=== PATIENT | female | born 1935 | race Caucasian/White ===

== ENCOUNTER 2017-12-14 08:43 | Emergency (ER) | payer OTHER, MEDICARE ==
[2017-12-14 10:06] LABS: Absolute Lymphocytes (CBC) 1.6 K/uL (0.7-4.9); Absolute Monocytes 0.5 K/uL (0.1-1.3); Absolute Neutrophil 4.9 K/uL (1.8-8.0); Basophils % 0.3 % (0-1.3); Eosinophils % 2.3 % (0-4.4); Hematocrit 37.3 % (36.0-45.0); Lymphocytes % 22.2 % (15.3-44.8); MCH 28.3 pg (27.0-35.0); MCV 84.3 fL (80-100); MPV 8.2 fL (7.6-11.3); Monocytes % 6.8 % (3.3-12.3); RBC Red Blood Cell Count 4.43 M/uL (3.86-4.86)
[2017-12-14 10:08] LABS: Potassium 4.4 mEq/L (3.6-5.0)
[2017-12-14 10:09] LABS: Glomerular Filtration Rate > 60 mL/min (>60)
[2017-12-14 10:15] LABS: Albumin 4.2 g/dL (3.2-5.5); Bilirubin Direct 0.1 mg/dL (0-0.2); Bilirubin Total 0.5 mg/dL (0.3-1.2); Protein, Total 7.4 g/dL (6.0-8.3)
--- NOTE | 2017-12-14 10:50 | RAD REPORT ---
EXAM DESCRIPTION: CT - Stone Protocol - 12/14/2017 10:33 am CLINICAL HISTORY: Flank pain. Right lower quadrant pain. COMPARISON: None. TECHNIQUE: Axial images were obtained without oral or IV contrast. Lack of contrast limits solid org an and vascular assessment. The [id number] spans the entirety of the system partially obscuring uppermost abdomen and lung bases. Coronal reformatted images were obtained and reviewed. All CT scans are performed using dose optimization technique as appropriate and may include automated exposure control or mA/KV adjustment according to patient size. FINDINGS: The lower lung valenzuela are clear. Imaged portions of the liver and spleen show no suspicious findings on non-contrast imaging. The panc reas and adrenal glands are normal. No pathologic lymphadenopathy in the abdomen or pelvis. No urinary tract stones or obstructive uropathy. No bowel obstruction, free air, free fluid or abscess. The appendix is not identified as a discrete s tructure, however, no secondary findings of appendicitis are identified. Prominent sigmoid diverticul osis is noted without diverticulitis. Central canal stenosis is present at T12-L1. Moderate aortic atherosclerosis. IMPRESSION: No urinary tract stones or obstructive uropathy. Central canal stenosis at T12-L1. Prominent sigmoid diverticulosis without diverticulitis.
[2017-12-14] MEDS ORDERED: FENTANYL CITR 100 MCG/2 ML ONE (10:56)
[2017-12-14] MEDS ORDERED: ONDANSETRON 4 MG/2 ML VIAL ONE (10:56)
[2017-12-14] MEDS ORDERED: CEFTRIAXONE/SWI 1gm 1 GM/10 ML SYR ONE (10:57)
[2017-12-14] MEDS ORDERED: KETOROLAC 30 MG/ML INJ ONE (10:57)
--- NOTE | 2017-12-14 12:35 | ER ---
Nurse's Notes [facility] Name: Skylar Grossman Age: 82 yrs Sex: Female : 1935 Arrival Date: 12/14/2017 Time: 08:48 Bed 16 Private MD: Edwardo Angel V Diagnosis: Abdominal tenderness;Diverticular disease of intestine-diverticulosis Presentation: 12/14 09:06 Presenting complaint: Patient states: has had RLQ pain, radiating to right lower back iw for a few days, denies pain with urination or blood in urine, has hx of kidney stones X 30 years ago, denies n/v/d, denies fever, chills. Transition of care: patient was not received from another setting of care. Onset of symptoms was December 11, 2017. Care prior to arrival: None. 09:06 Method Of Arrival: Ambulatory iw 09:06 Acuity: FARIDA 3 iw Triage Assessment: 09:17 General: Appears in no apparent distress. uncomfortable, Behavior is calm, cooperative, hj appropriate for age. Pain: Complains of pain in right lower quadrant Pain radiates to right low back. EENT: No signs and/or symptoms were reported regarding the EENT system. Neuro: Level of Consciousness is awake, alert, obeys commands, Oriented to person, place, time, situation, Appropriate for age. Cardiovascular: Heart tones S1 S2 present Capillary refill < 3 seconds Patient's skin is warm and dry. Respiratory: Airway is patent Respiratory effort is even, unlabored, Respiratory pattern is regular, symmetrical. GI: No signs and/or symptoms were reported involving the gastrointestinal system. : No signs and/or symptoms were reported regarding the genitourinary system. Derm: No signs and/or symptoms reported regarding the dermatologic system. Musculoskeletal: No signs and/or symptoms reported regarding the musculoskeletal system. Historical: - Allergies: 09:08 Codeine (Upset stomach); iw - Home Meds: 09:19 amitriptyline 100 mg Oral tab 1 tab nightly [Active]; Bystolic 10 mg Oral tab 1 tab hj once daily [Active]; Flomax 0.4 mg Oral cp24 1 cap once daily [Active]; Humalog Sub-Q [Active]; Lantus 100 unit/mL Sub-Q soln 32 unit before breakfast [Active]; lisinopril 40 mg Oral tab 1 tab once daily [Active]; metformin 500 mg Oral tab 1 tab 2 times per day [Active]; Neurontin 300 mg Oral cap 1 cap 3 times per day [Active]; Plavix 75 mg Oral tab 1 tab once daily [Active]; Prilosec 20 mg Oral cpDR 1 cap once daily [Active]; Prozac 20 mg Oral cap 1 cap once daily [Active]; simvastatin 20 mg Oral tab 1 tab nightly [Active]; - PMHx: 09:08 CVA; Depression; Diabetes - IDDM; GERD; High Cholesterol; Hypertension; iw - PSHx: 09:08 Hysterectomy; iw - Immunization history:: Adult Immunizations up to date. - Social history:: Smoking status: Patient/guardian denies using tobacco, Patient/guardian denies using alcohol. - Family history:: not pertinent. Screenin:17 Abuse screen: Denies threats or abuse. Denies injuries from another. Nutritional hj screening: No deficits noted. Tuberculosis screening: No symptoms or risk factors identified. Fall Risk Fall in past 12 months (25 points). Assessment: 09:15 General: Appears in no apparent distress. Behavior is calm, cooperative. Neuro: Level iw of Consciousness is awake, alert, Oriented to person, place. Cardiovascular: Patient's skin is warm and dry. Respiratory: Respiratory effort is even, unlabored. GI: Reports lower abdominal pain, nausea. Derm: Skin is pink, warm \T\ dry. normal. Musculoskeletal: Range of motion: intact in all extremities. 10:11 Reassessment: Patient appears in no apparent distress at this time. Patient and/or wh family updated on plan of care and expected duration. Pain level reassessed. Patient is alert, oriented x 3, equal unlabored respirations, skin warm/dry/pink. 11:15 Reassessment: Patient appears in no apparent distress at this time. Patient and/or wh family updated on plan of care and expected duration. Pain level reassessed. Patient is alert, oriented x 3, equal unlabored respirations, skin warm/dry/pink. 12:14 Reassessment: Patient appears in no apparent distress at this time. Patient and/or wh family updated on plan of care and expected duration. Pain level reassessed. Patient is alert, oriented x 3, equal unlabored respirations, skin warm/dry/pink. 12:56 Reassessment: Patient appears in no apparent distress at this time. Patient and/or iw family updated on plan of care and expected duration. Pain level reassessed. Patient is alert, oriented x 3, equal unlabored respirations, skin warm/dry/pink. Patient denies pain at this time. Patient states feeling better. Patient states symptoms have improved. Vital Signs: 09:20 BP 168 / 83; Pulse 67; Resp 18; Temp 97.2(O); Pulse Ox 100% on R/A; Weight 81.65 kg; hj Height 5 ft. 5 in. (165.10 cm); Pain 4/10; 10:15 BP 204 / 88; Pulse 64; Resp 18; Pulse Ox 97% on R/A; wh 12:55 BP 184 / 89; Pulse 58; Resp 16; Pulse Ox 97% on R/A; Pain 0/10; iw 09:20 Body Mass Index 29.95 (81.65 kg, 165.10 cm) ED Course: 08:48 Patient arrived in ED. rg4 08:48 Edwardo Angel MD is Private Physician. rg4 09:00 Desmond Olsen MD is Attending Physician. denzel 09:02 Homer Hough, JOSE EDUARDO is Primary Nurse. 09:07 Triage completed. iw 09:08 Arm band placed on. iw 09:19 Patient has correct armband on for positive identification. Placed in gown. Bed in low hj position. Call light in reach. Side rails up X 1. Adult w/ patient. 09:45 Initial lab(s) drawn, by me, sent to lab. Inserted saline lock: 22 gauge in left hj antecubital area, using aseptic technique. Blood collected. 10:33 CT completed. Patient tolerated procedure well. Patient moved to CT via wheelchair. sj Patient moved back from CT. 10:34 CT Stone Protocol In Process Unspecified. EDMS 12:28 Straight cath inserted, using sterile technique, 16 Fr. Returned clear yellow urine. iw Patient tolerated well. 12:34 Edwardo Angel MD is Referral Physician. denzel 12:53 No provider procedures requiring assistance completed. IV discontinued, intact, iw bleeding controlled, No redness/swelling at site. Pressure dressing applied. Administered Medications: 11:13 Drug: TORadol 30 mg Route: IVP; Site: left antecubital; 11:40 Follow up: Response: No adverse reaction; Pain is decreased iw 11:13 Drug: Zofran 4 mg Route: IVP; Site: left antecubital; 12:57 Follow up: Response: No adverse reaction iw 11:13 Drug: fentaNYL (PF) 25 mcg Route: IVP; Site: left antecubital; 12:57 Follow up: Response: No adverse reaction iw 11:13 Drug: Rocephin - (cefTRIAXone) 1 grams Route: IVPB; Infused Over: 30 mins; Site: left antecubital; 11:15 Follow up: IV Status: Completed infusion iw Outcome: 12:34 Discharge ordered by MD. mahoney 12:53 Discharged to home ambulatory, with family. iw 12:53 Condition: good 12:53 Discharge instructions given to patient, Instructed on discharge instructions, follow up and referral plans. Demonstrated understanding of instructions, follow-up care, Prescriptions given X 4. 12:57 Patient left the ED. iw Signatures: Dispatcher [employer] EDDesmond Ramírez MD MD cha Jones, Susan sj Williams, Irene, RN RN Homer Hough RN RN hj Garcia, Rubi rg4 Alphonso Ching
--- NOTE | 2017-12-14 12:35 | EDPHYS ---
Physician Documentation [facility] Name: Skylar Grossman Age: 82 yrs Sex: Female : 1935 Arrival Date: 12/14/2017 Time: 08:48 Bed 16 Private MD: Edwardo Angel V ED Physician Desmond Olsen HPI: 12/14 10:18 This 82 yrs old Female presents to ER via Ambulatory with complaints of Flank denzel Pain. 10:18 This 82 yrs old Female presents to ER via Ambulatory with complaints of Flank denzel Pain. 10:18 The patient complains of pain in the right mid back and right low back. The pain denzel radiates to the right mid back and right low back. Onset: The symptoms/episode began/occurred 2 day(s) ago. Modifying factors: The symptoms are alleviated by nothing. Associated signs and symptoms: The patient has no apparent associated signs or symptoms. Severity of pain: At its worst the pain was mild moderate. The patient has not experienced similar symptoms in the past. Historical: - Allergies: 09:08 Codeine (Upset stomach); iw - Home Meds: 09:19 amitriptyline 100 mg Oral tab 1 tab nightly [Active]; Bystolic 10 mg Oral tab 1 tab hj once daily [Active]; Flomax 0.4 mg Oral cp24 1 cap once daily [Active]; Humalog Sub-Q [Active]; Lantus 100 unit/mL Sub-Q soln 32 unit before breakfast [Active]; lisinopril 40 mg Oral tab 1 tab once daily [Active]; metformin 500 mg Oral tab 1 tab 2 times per day [Active]; Neurontin 300 mg Oral cap 1 cap 3 times per day [Active]; Plavix 75 mg Oral tab 1 tab once daily [Active]; Prilosec 20 mg Oral cpDR 1 cap once daily [Active]; Prozac 20 mg Oral cap 1 cap once daily [Active]; simvastatin 20 mg Oral tab 1 tab nightly [Active]; - PMHx: 09:08 CVA; Depression; Diabetes - IDDM; GERD; High Cholesterol; Hypertension; iw - PSHx: 09:08 Hysterectomy; iw - Immunization history:: Adult Immunizations up to date. - Social history:: Smoking status: Patient/guardian denies using tobacco, Patient/guardian denies using alcohol. - Family history:: not pertinent. ROS: 10:18 Constitutional: Negative for fever, chills, and weight loss, Eyes: Negative for injury, denzel pain, redness, and discharge, ENT: Negative for injury, pain, and discharge, Neck: Negative for injury, pain, and swelling, Cardiovascular: Negative for chest pain, palpitations, and edema, Respiratory: Negative for shortness of breath, cough, wheezing, and pleuritic chest pain, : Negative for injury, bleeding, discharge, and swelling, MS/Extremity: Negative for injury and deformity, Skin: Negative for injury, rash, and discoloration, Neuro: Negative for headache, weakness, numbness, tingling, and seizure, Psych: Negative for depression, anxiety, suicide ideation, homicidal ideation, and hallucinations, Allergy/Immunology: Negative for hives, rash, and allergies, Endocrine: Negative for neck swelling, polydipsia, polyuria, polyphagia, and marked weight changes, Hematologic/Lymphatic: Negative for swollen nodes, abnormal bleeding, and unusual bruising. 10:18 Abdomen/GI: Positive for abdominal pain, of the right upper quadrant and right lower quadrant. Exam: 10:18 Constitutional: This is a well developed, well nourished patient who is awake, alert, denzel and in no acute distress. Head/Face: Normocephalic, atraumatic. Eyes: Pupils equal round and reactive to light, extra-ocular motions intact. Lids and lashes normal. Conjunctiva and sclera are non-icteric and not injected. Cornea within normal limits. Periorbital areas with no swelling, redness, or edema. ENT: Nares patent. No nasal discharge, no septal abnormalities noted. Tympanic membranes are normal and external auditory canals are clear. Oropharynx with no redness, swelling, or masses, exudates, or evidence of obstruction, uvula midline. Mucous membranes moist. Neck: Trachea midline, no thyromegaly or masses palpated, and no cervical lymphadenopathy. Supple, full range of motion without nuchal rigidity, or vertebral point tenderness. No Meningismus. Chest/axilla: Normal chest wall appearance and motion. Nontender with no deformity. No lesions are appreciated. Cardiovascular: Regular rate and rhythm with a normal S1 and S2. No gallops, murmurs, or rubs. Normal PMI, no JVD. No pulse deficits. Respiratory: Lungs have equal breath sounds bilaterally, clear to auscultation and percussion. No rales, rhonchi or wheezes noted. No increased work of breathing, no retractions or nasal flaring. Back: No spinal tenderness. No costovertebral tenderness. Full range of motion. Female : Normal external genitalia. Skin: Warm, dry with normal turgor. Normal color with no rashes, no lesions, and no evidence of cellulitis. MS/ Extremity: Pulses equal, no cyanosis. Neurovascular intact. Full, normal range of motion. Neuro: Awake and alert, GCS 15, oriented to person, place, time, and situation. Cranial nerves II-XII grossly intact. Motor strength 5/5 in all extremities. Sensory grossly intact. Cerebellar exam normal. Normal gait. Psych: Awake, alert, with orientation to person, place and time. Behavior, mood, and affect are within normal limits. 10:18 Abdomen/GI: Inspection: abdomen appears normal, Bowel sounds: normal, Palpation: mild abdominal tenderness, moderate abdominal tenderness, in the posterior aspect of right lateral abdomen, anterior aspect of right lateral abdomen, right upper quadrant and right lower quadrant. Vital Signs: 09:20 BP 168 / 83; Pulse 67; Resp 18; Temp 97.2(O); Pulse Ox 100% on R/A; Weight 81.65 kg; Height 5 ft. 5 in. (165.10 cm); Pain 4/10; 10:15 BP 204 / 88; Pulse 64; Resp 18; Pulse Ox 97% on R/A; wh 12:55 BP 184 / 89; Pulse 58; Resp 16; Pulse Ox 97% on R/A; Pain 0/10; iw 09:20 Body Mass Index 29.95 (81.65 kg, 165.10 cm) MDM: 09:00 [facility] 10:18 Data reviewed: vital signs, nurses notes, lab test result(s), radiologic studies, CT denzel scan, plain films. 12/14 09:38 Order name: Amylase, Serum 12/14 09:38 Order name: Basic Metabolic Panel 12/14 09:38 Order name: CBC with Diff; Complete Time: 11:42 12/14 09:38 Order name: Creatinine for Radiology; Complete Time: 10:16 12/14 09:38 Order name: Hepatic Function; Complete Time: 10:16 12/14 09:38 Order name: Lipase; Complete Time: 10:16 hj 12/14 09:38 Order name: Urine Microscopic Only 12/14 09:38 Order name: Amylase Level; Complete Time: 10:16 EDIA 12/14 09:38 Order name: Basic Metabolic Panel; Complete Time: 10:16 EDMS 12/14 10:18 Order name: CT Stone Protocol; Complete Time: 11:42 [facility] 12/14 12:43 Order name: Urine Dipstick--Ancillary (enter results) 12/14 09:38 Order name: IV Saline Lock; Complete Time: 09:38 12/14 09:38 Order name: Labs collected and sent; Complete Time: 09:38 12/14 09:38 Order name: Urine Dipstick-Ancillary (obtain specimen); Complete Time: 12:28 Administered Medications: 11:13 Drug: TORadol 30 mg Route: IVP; Site: left antecubital; 11:40 Follow up: Response: No adverse reaction; Pain is decreased iw 11:13 Drug: Zofran 4 mg Route: IVP; Site: left antecubital; 12:57 Follow up: Response: No adverse reaction iw 11:13 Drug: fentaNYL (PF) 25 mcg Route: IVP; Site: left antecubital; 12:57 Follow up: Response: No adverse reaction iw 11:13 Drug: Rocephin - (cefTRIAXone) 1 grams Route: IVPB; Infused Over: 30 mins; Site: left antecubital; 11:15 Follow up: IV Status: Completed infusion iw Disposition: 12/14/17 12:34 Discharged to Home. Impression: Abdominal tenderness, Diverticular disease of intestine - diverticulosis. - Condition is Stable. - Discharge Instructions: Abdominal Pain, Adult, Abdominal Pain, Adult, [id number]. - Prescriptions for Bentyl 20 mg Oral Tablet - take 1 tablet by ORAL route every 6 hours As needed; 20 tablet. Zofran 4 mg Oral Tablet - take 1 tablet by ORAL route every 12 hours As needed; 20 tablet. Tramadol 50 mg Oral Tablet - take 1 tablet by ORAL route every 8 hours as needed; 24 tablet. Cipro 250 mg Oral Tablet - take 1 tablet by ORAL route every 12 hours; 14 tablet. - Medication Reconciliation Form, Thank You Letter, Antibiotic Education, Prescription Opioid Use form. - Follow up: Edwardo Angel; When: 2 - 3 days; Reason: Recheck today's complaints, Continuance of care, Re-evaluation by your physician. - Problem is new. - Symptoms have improved. Signatures: Dispatcher [employer] EDDesmond Ramírez MD MD cha Williams, Irene RN Homer Johnson RN Alphonso Sy
[2017-12-14 12:59] LABS: Urine Bacteria 20-50 /HPF (<20); Urine Culture Reflex Order REFLEXED; Urine RBC <5 /HPF (NONE SEEN)
[2017-12-14 13:01] VITALS: TEMP 97.2
[2017-12-14 13:02] VITALS: O2SAT 97
[2017-12-14 13:04] VITALS: BP 184/89
[2017-12-14 15:07] LABS: Urine Blood NEGATIVE (NEG); Urine Glucose NEGATIVE (NEG); Urine Protein NEGATIVE (NEG)
== END 2017-12-14 12:57 | disposition home or self-care (01) ==
LOC: ER 08:43
DX: K57.30 Diverticulosis of large intestine without perforation or abscess without bleeding (principal); I10 Essential (primary) hypertension; E11.9 Type 2 diabetes mellitus without complications; E78.00 Pure hypercholesterolemia, unspecified; F32.9 Major depressive disorder, single episode, unspecified; Z86.73 Personal history of transient ischemic attack (TIA), and cerebral infarction without residual deficits; Z79.01 Long term (current) use of anticoagulants; Z79.4 Long term (current) use of insulin; Z88.5 Allergy status to narcotic agent
CPT/HCPCS: 36415; 51702; 74176; 76377; 80048; 80076; 82150; 83690; 85025; 87086; 87088; 96374; 96375; 99284; J0696; J2405; J3010; 81003; 81015

== ENCOUNTER 2017-12-26 05:33 | Observation (INO) | payer OTHER, MEDICARE ==
[2017-12-26] MEDS ORDERED: NA CHLORIDE 0.9% 1,000 ML ONE (05:58)
[2017-12-26] MEDS ORDERED: CEFTRIAXONE/SWI 1gm 1 GM/10 ML SYR ONE (05:58)
[2017-12-26] MEDS ORDERED: NA CHLORIDE 0.9% 500 ML ONE (05:58)
[2017-12-26 06:26] LABS: Absolute Lymphocytes (CBC) 2.1 K/uL (0.7-4.9); Absolute Monocytes 0.8 K/uL (0.1-1.3); Absolute Neutrophil 9.4 K/uL (1.8-8.0); Basophils % 0.4 % (0-1.3); Hematocrit 34.9 % (36.0-45.0); Lymphocytes % 17.2 % (15.3-44.8); MCH 27.3 pg (27.0-35.0); MPV 8.8 fL (7.6-11.3); Monocytes % 6.5 % (3.3-12.3)
[2017-12-26 06:30] LABS: Protime INR 1.07
[2017-12-26 06:39] LABS: Potassium 4.4 mEq/L (3.6-5.0)
[2017-12-26 06:45] LABS: Albumin 3.8 g/dL (3.2-5.5); Bilirubin Direct 0.1 mg/dL (0-0.2); Bilirubin Total 0.5 mg/dL (0.3-1.2); Magnesium 1.8 mg/dL (1.8-2.5)
[2017-12-26 06:48] LABS: CKMB Creatine Kinase MB 3.6 ng/ml (0.3-4.0)
--- NOTE | 2017-12-26 07:22 | ER ---
Nurse's Notes [facility] Name: Skylar Grossman Age: 82 yrs Sex: Female : 1935 Arrival Date: 12/26/2017 Time: 05:36 Bed 20 Private MD: Edwardo Angel V Diagnosis: Weakness;Fever, unspecified;Other chest pain;Urinary tract infection, site not specified Presentation: 12/26 05:46 Presenting complaint: Patient states: I FELT REALLY WEAK AND BEEN HURTING HERE bp (GESTURING TO CHEST). Transition of care: patient was not received from another setting of care. Onset of symptoms was December 26, 2017 at 04:30. Care prior to arrival: None. 05:46 Method Of Arrival: Ambulatory bp 05:46 Acuity: FARIDA 2 bp Triage Assessment: 05:51 General: Appears in no apparent distress. comfortable, obese, Behavior is calm, bp cooperative, appropriate for age. Pain: Complains of pain in xyphoid area and mid-sternal area Pain currently is 10 out of 10 on a pain scale. EENT: No deficits noted. Neuro: Level of Consciousness is awake, alert, obeys commands, Oriented to person, place, time, situation, Appropriate for age Therapeutic Massage Technician are equal bilaterally Moves all extremities. Weakness Speech is normal, Facial symmetry appears normal. Cardiovascular: Rhythm is sinus rhythm. Respiratory: Airway is patent Respiratory effort is even, unlabored, Respiratory pattern is regular, symmetrical. GI: No signs and/or symptoms were reported involving the gastrointestinal system. : No signs and/or symptoms were reported regarding the genitourinary system. Derm: No deficits noted. Musculoskeletal: Circulation, motion, and sensation intact. Range of motion: intact in all extremities. Historical: - Allergies: 05:50 Codeine (Upset stomach); bp - Home Meds: 05:50 amitriptyline 100 mg Oral tab 1 tab nightly [Active]; Bystolic 10 mg Oral tab 1 tab bp once daily [Active]; Flomax 0.4 mg Oral cp24 1 cap once daily [Active]; Humalog Sub-Q [Active]; Lantus 100 unit/mL Sub-Q soln 32 unit before breakfast [Active]; lisinopril 40 mg Oral tab 1 tab once daily [Active]; metformin 500 mg Oral tab 1 tab 2 times per day [Active]; Neurontin 300 mg Oral cap 1 cap 3 times per day [Active]; Plavix 75 mg Oral tab 1 tab once daily [Active]; Prilosec 20 mg Oral cpDR 1 cap once daily [Active]; Prozac 20 mg Oral cap 1 cap once daily [Active]; simvastatin 20 mg Oral tab 1 tab nightly [Active]; - PMHx: 05:50 CVA; Depression; Diabetes - IDDM; GERD; High Cholesterol; Hypertension; bp - Immunization history:: Adult Immunizations up to date. - Social history:: Smoking status: Patient/guardian denies using tobacco. Screenin:53 Abuse screen: Denies threats or abuse. Denies injuries from another. Nutritional bp screening: No deficits noted. Tuberculosis screening: No symptoms or risk factors identified. Fall Risk Fall in past 12 months (25 points). Secondary diagnosis (15 points) CVA, No IV (0 pts). Ambulatory Aid- Crutches/Cane/Walker (15 pts). Gait- Weak (10 pts.). Mental Status- Oriented to own ability (0 pts). Total [place] Fall Scale indicates High Risk Score (45 or more points). Fall prevention measures have been instituted. Side Rails Up X 2 Placed Close to Nursing Station Frequent Obs/Assessments Occuring Family Present and informed to notify staff if the need to leave the bedside As available patient and family educated on Fall Prevention Program and Strategies. Assessment: 05:50 General: SEE TRIAGE NOTE. 82YO WF P/W GEN WEAKNESS, SUBJECTIVE FEVER AND SUBSTERNAL bp CHEST PAIN SINCE 0430. VS STABLE ON MONITOR, PT AFEBRILE. -[place] SCALE FOR STROKE, PT AO4. 06:23 Reassessment: PT TO CT WITH RESIDENTIAL TEAM LEADER. bp 06:45 Reassessment: PT RETURNED FROM CT. UOP PENDING. PT VS STABLE ON MONITOR. bp 07:54 Reassessment: Patient appears in no apparent distress at this time. Patient and/or ph family updated on plan of care and expected duration. Pain level reassessed. Patient is alert, oriented x 3, equal unlabored respirations, skin warm/dry/pink. Pt resting quietly, awaiting room assignment, daughter at bedside. Vital Signs: 05:51 BP 128 / 52; Pulse 68; Resp 16; Temp 97.6; Pulse Ox 93% ; Weight 80.74 kg; bp 06:45 BP 143 / 61; Pulse 66; Resp 18; Pulse Ox 100% ; bp 07:55 BP 149 / 94; Pulse 69; Resp 18; Pulse Ox 95% on R/A; ph Vitals: 07:55 Cardiac Rhythm Assessment. Cardiac Rhythm Assessment Regular. ph ED Course: 05:36 Patient arrived in ED. es 05:37 Edwardo Angel MD is Private Physician. es 05:39 Desmond Olsen MD is Attending Physician. denzel 05:46 Faustino Garcia, JOSE EDUARDO is Primary Nurse. bp 05:47 Triage completed. bp 05:51 Arm band placed on. bp 05:53 Patient has correct armband on for positive identification. Placed in gown. Bed in low bp position. Call light in reach. Side rails up X2. Adult w/ patient. 06:00 Missed attempt(s): 20 gauge in left antecubital area. Bleeding controlled, band aid bb applied, catheter tip intact. 06:02 XRAY Chest (1 view) Sent. bp 06:05 Inserted saline lock: 20 gauge in right forearm, using aseptic technique. Blood bb collected. 06:12 X-ray completed. Portable x-ray completed in exam room. Patient tolerated procedure kw well. 06:14 XRAY Chest (1 view) In Process Unspecified. EDMS 06:23 CT Abd/Pelvis - Without Cont: no iv and no oral Sent. bp 06:32 CT Abd/Pelvis - Without Cont: no iv and no oral In Process Unspecified. EDMS 07:20 Edwardo Angel MD is Hospitalizing Provider. denzel 07:56 No provider procedures requiring assistance completed. Patient admitted, IV remains in ph place. Administered Medications: 06:20 Drug: NS 0.9% 500 ml Route: IV; Rate: bolus; Site: right forearm; bp 06:20 Drug: NS 0.9% 1000 ml Route: IV; Rate: 125 ml/hr; Site: right forearm; bp 06:20 Drug: Rocephin - (cefTRIAXone) 1 grams Route: IVPB; Infused Over: 30 mins; Site: right bp forearm; 07:54 Drug: Aspirin 81 mg Route: PO; ph Outcome: 07:22 Decision to Hospitalize by Provider. denzel 09:39 Patient left the ED. ph Signatures: Dispatcher [employer] EDMS Desmond Olsen MD MD cha Salyer, Cindy es Wall, Naomi, JOSE EDUARDO RN bb Christina Elkins Patricia, RN RN ph Faustino Garcia RN RN bp
--- NOTE | 2017-12-26 07:22 | EDPHYS ---
Physician Documentation [facility] Name: Skylar Grossman Age: 82 yrs Sex: Female : 1935 Arrival Date: 12/26/2017 Time: 05:36 Bed 20 Private MD: Edwardo Angel V ED Physician Desmond Olsen HPI: 12/26 05:54 This 82 yrs old Female presents to ER via Ambulatory with complaints of denzel Weakness, Fever. 05:54 The patient presents to the emergency department with weakness of the entire body, denzel generalized weakness. Historical: - Allergies: 05:50 Codeine (Upset stomach); bp - Home Meds: 05:50 amitriptyline 100 mg Oral tab 1 tab nightly [Active]; Bystolic 10 mg Oral tab 1 tab bp once daily [Active]; Flomax 0.4 mg Oral cp24 1 cap once daily [Active]; Humalog Sub-Q [Active]; Lantus 100 unit/mL Sub-Q soln 32 unit before breakfast [Active]; lisinopril 40 mg Oral tab 1 tab once daily [Active]; metformin 500 mg Oral tab 1 tab 2 times per day [Active]; Neurontin 300 mg Oral cap 1 cap 3 times per day [Active]; Plavix 75 mg Oral tab 1 tab once daily [Active]; Prilosec 20 mg Oral cpDR 1 cap once daily [Active]; Prozac 20 mg Oral cap 1 cap once daily [Active]; simvastatin 20 mg Oral tab 1 tab nightly [Active]; - PMHx: 05:50 CVA; Depression; Diabetes - IDDM; GERD; High Cholesterol; Hypertension; bp - Immunization history:: Adult Immunizations up to date. - Social history:: Smoking status: Patient/guardian denies using tobacco. ROS: 05:55 Constitutional: Negative for fever, chills, and weight loss, Eyes: Negative for injury, denzel pain, redness, and discharge, ENT: Negative for injury, pain, and discharge, Neck: Negative for injury, pain, and swelling, Cardiovascular: Negative for chest pain, palpitations, and edema, Respiratory: Negative for shortness of breath, cough, wheezing, and pleuritic chest pain, Back: Negative for injury and pain, : Negative for injury, bleeding, discharge, and swelling, MS/Extremity: Negative for injury and deformity, Skin: Negative for injury, rash, and discoloration, Neuro: Negative for headache, weakness, numbness, tingling, and seizure, Psych: Negative for depression, anxiety, suicide ideation, homicidal ideation, and hallucinations, Allergy/Immunology: Negative for hives, rash, and allergies, Endocrine: Negative for neck swelling, polydipsia, polyuria, polyphagia, and marked weight changes, Hematologic/Lymphatic: Negative for swollen nodes, abnormal bleeding, and unusual bruising. 05:55 Abdomen/GI: Positive for abdominal pain, of the left upper quadrant and left lower quadrant. Exam: 05:55 Constitutional: This is a well developed, well nourished patient who is awake, alert, denzel and in no acute distress. Head/Face: Normocephalic, atraumatic. Eyes: Pupils equal round and reactive to light, extra-ocular motions intact. Lids and lashes normal. Conjunctiva and sclera are non-icteric and not injected. Cornea within normal limits. Periorbital areas with no swelling, redness, or edema. ENT: Nares patent. No nasal discharge, no septal abnormalities noted. Tympanic membranes are normal and external auditory canals are clear. Oropharynx with no redness, swelling, or masses, exudates, or evidence of obstruction, uvula midline. Mucous membranes moist. Neck: Trachea midline, no thyromegaly or masses palpated, and no cervical lymphadenopathy. Supple, full range of motion without nuchal rigidity, or vertebral point tenderness. No Meningismus. Chest/axilla: Normal chest wall appearance and motion. Nontender with no deformity. No lesions are appreciated. Cardiovascular: Regular rate and rhythm with a normal S1 and S2. No gallops, murmurs, or rubs. Normal PMI, no JVD. No pulse deficits. Respiratory: Lungs have equal breath sounds bilaterally, clear to auscultation and percussion. No rales, rhonchi or wheezes noted. No increased work of breathing, no retractions or nasal flaring. Back: No spinal tenderness. No costovertebral tenderness. Full range of motion. Female : Normal external genitalia. Skin: Warm, dry with normal turgor. Normal color with no rashes, no lesions, and no evidence of cellulitis. MS/ Extremity: Pulses equal, no cyanosis. Neurovascular intact. Full, normal range of motion. Neuro: Awake and alert, GCS 15, oriented to person, place, time, and situation. Cranial nerves II-XII grossly intact. Motor strength 5/5 in all extremities. Sensory grossly intact. Cerebellar exam normal. Normal gait. Psych: Awake, alert, with orientation to person, place and time. Behavior, mood, and affect are within normal limits. 05:55 Abdomen/GI: Inspection: abdomen appears normal, Bowel sounds: normal, Palpation: mild abdominal tenderness, in the left upper quadrant and left lower quadrant. Vital Signs: 05:51 BP 128 / 52; Pulse 68; Resp 16; Temp 97.6; Pulse Ox 93% ; Weight 80.74 kg; bp 06:45 BP 143 / 61; Pulse 66; Resp 18; Pulse Ox 100% ; bp 07:55 BP 149 / 94; Pulse 69; Resp 18; Pulse Ox 95% on R/A; ph MDM: 05:39 Patient medically screened. [facility] 05:56 Data reviewed: vital signs, nurses notes, lab test result(s), EKG, radiologic studies, [facility] CT scan, plain films. 12/26 05:46 Order name: Basic Metabolic Panel; Complete Time: 07:12 [facility] 12/26 05:46 Order name: BNP [facility] 12/26 05:46 Order name: CBC with Diff; Complete Time: 07:12 [facility] 12/26 05:46 Order name: Ckmb; Complete Time: 07:12 [facility] 12/26 05:46 Order name: CPK; Complete Time: 07:12 [facility] 12/26 05:46 Order name: LFT's; Complete Time: 07:12 [facility] 12/26 05:46 Order name: Magnesium; Complete Time: 07:12 [facility] 12/26 05:46 Order name: PT-INR; Complete Time: 07:12 [facility] 12/26 05:46 Order name: Ptt, Activated; Complete Time: 07:12 [facility] 12/26 05:46 Order name: Troponin (emerg Dept Use Only); Complete Time: 07:12 [facility] 12/26 05:46 Order name: Urine Culture [facility] 12/26 05:46 Order name: Lipase; Complete Time: 07:12 [facility] 12/26 05:46 Order name: Blood Culture Adult (2) [facility] 12/26 05:46 Order name: XRAY Chest (1 view) [facility] 12/26 05:46 Order name: EKG; Complete Time: 05:47 [facility] 12/26 05:46 Order name: Flu; Complete Time: 07:12 [facility] 12/26 05:54 Order name: CT Abd/Pelvis - Without Cont: no iv and no oral [facility] 12/26 07:31 Order name: Carb Control (ADA) [address] EDKY 12/26 07:31 Order name: CONS Physician Consult [facility] 12/26 07:31 Order name: EKG Electrocardiogram [facility] 12/26 07:31 Order name: EKG Electrocardiogram [facility] 12/26 07:31 Order name: Troponin I [facility] 12/26 07:31 Order name: Troponin I [facility] 12/26 07:42 Order name: Urine Dipstick--Ancillary (enter results) em 12/26 07:43 Order name: Urine Dipstick-Ancillary [facility] 12/26 05:46 Order name: Cardiac monitoring; Complete Time: 06:01 [facility] 12/26 05:46 Order name: EKG - Nurse/Tech; Complete Time: 06:02 [facility] 12/26 05:46 Order name: IV Saline Lock; Complete Time: 06:01 [facility] 12/26 05:46 Order name: Labs collected and sent; Complete Time: 06:02 [facility] 12/26 05:46 Order name: O2 Per Protocol; Complete Time: 06:01 [facility] 12/26 05:46 Order name: O2 Sat Monitoring; Complete Time: 06:01 [facility] 12/26 05:46 Order name: Urine Dipstick-Ancillary (obtain specimen); Complete Time: 07:44 [facility] 12/26 07:31 Order name: EKG Electrocardiogram [facility] 12/26 07:31 Order name: EKG Electrocardiogram [facility] Administered Medications: 06:20 Drug: NS 0.9% 500 ml Route: IV; Rate: bolus; Site: right forearm; bp 06:20 Drug: NS 0.9% 1000 ml Route: IV; Rate: 125 ml/hr; Site: right forearm; bp 06:20 Drug: Rocephin - (cefTRIAXone) 1 grams Route: IVPB; Infused Over: 30 mins; Site: right bp forearm; 07:54 Drug: Aspirin 81 mg Route: PO; ph Disposition: 12/26/17 07:22 Hospitalization ordered by Edwardo Angel for Observation. Preliminary diagnosis are Weakness, Fever, unspecified, Other chest pain, Urinary tract infection, site not specified. - Bed requested for Telemetry/MedSurg (observation). - Status is Observation. ph - Condition is Stable. - Problem is new. - Symptoms have improved. UTI on Admission? Yes Signatures: Dispatcher [employer] EDNicole Calloway, RN RN Desmond Joyner MD MD cha Hall, Patricia, RN RN Faustino Garcia, RN RN bp Corrections: (The following items were deleted from the chart) 06:53 05:47 Procalcitonin+C.LAB.BRZ ordered. EDKY EDKY
[2017-12-26] MEDS ORDERED: ACETAMINOPHEN 500 MG TAB PO PRN (07:26)
[2017-12-26] MEDS ORDERED: ONDANSETRON 4 MG/2 ML VIAL IV PRN (07:26)
[2017-12-26] MEDS ORDERED: GLUCAGON 1 MG/VIAL IM PRN (07:28)
[2017-12-26] MEDS ORDERED: D50W 25 GM/50 ML SYRINGE IV PRN (07:28)
[2017-12-26] MEDS: INSULIN -REGULAR HUMAN 50 UNIT/0.5 ML ML SQ SCH ×4 (07:30→20:42)
[2017-12-26] MEDS ORDERED: ASPIRIN 81 MG CHEWABLE TABLET ONE (07:42)
--- NOTE | 2017-12-26 08:02 | RAD REPORT ---
EXAM DESCRIPTION: RAD - Chest Single View - 12/26/2017 6:13 am CLINICAL HISTORY: Chest pain COMPARISON: July 2017, August 2015 TECHNIQUE: AP portable chest image was obtained 0606 hours . FINDINGS: Lung volumes are low. Shallow inspiration and rotation accentuate the mediastinum. Fullnes s of the mediastinum is not clearly changed back to 2014. This is most likely summation of tortuous v asculature rather than mass or lymphadenopathy. No peripheral mass or consolidation. Acute failure or volume overload are not suspected. Heart size i s normal for shallow inspiration. No vascular engorgement. No measurable pleural effusion and no pneu mothorax. No gross bony abnormality seen. Aortic arch is prominent but not clearly different. Trachea is midline. IMPRESSION: No acute cardiopulmonary process. As detailed above, chest is not substantially different from prior imaging.
--- NOTE | 2017-12-26 08:07 | RAD REPORT ---
EXAM DESCRIPTION: CT - Abdomen Pelvis Wo Contrast - 12/26/2017 6:32 am CLINICAL HISTORY: Weakness, epigastric pain, abdominal pain, prior appendectomy and cholecystectomy, prior hysterectomy A preliminary written report was provided at the time of the study, and the report was reviewed prio r to final dictation. COMPARISON: CT study December 14 TECHNIQUE: Axial [address] imaging of the abdomen and pelvis was performed without IV contrast. No IV contrast was given because of allergy, abnormal renal function, patient refusal or physician re quest. Oral contrast was given. All CT scans are performed using dose optimization technique as appropriate and may include automated exposure control or mA/KV adjustment according to patient size. FINDINGS: No suspicious findings in the lung bases. No pericardial thickening or effusion. The liver, spleen and pancreas show no suspicious findings on non-contrast imaging. Gallbladder is ab sent. No biliary tree dilatation. No hydronephrosis or suspicious renal mass. No significant adrenal finding. Isodense renal masses an d pyelonephritis cannot be excluded in the absence of IV contrast. The urinary bladder is without sig nificant finding. Uterus is absent. Ovaries are atrophic. No adnexal mass. Numerous phleboliths are s een along the pelvic floor. No acute stomach or small bowel finding. There is a large stool volume filling but not dilating the c olon. Sigmoid is tortuous. No acute colon process. No free air, free fluid or inflammatory stranding. No hernia, mass or bulky lymphadenopathy. Prominent bony degenerative changes are present. No pathologic bone process. IMPRESSION: Noncontrast CT abdomen and pelvis imaging shows no acute finding. Large volume of stool fills but does not dilate the colon. No acute colon process. No significant changes from the December 14 study. Full assessment is limited is the absence of IV contrast.
--- NOTE | 2017-12-26 08:26 | EKG ---
Test Date: 2017-12-26 Test Time: 05:52:49 Real Estate Accountant: KENNY MEASUREMENT RESULTS: Intervals: Rate: 55 CT: 186 QRSD: 132 QT: 482 QTc: 461 [place]: P: 60 CT: 186 QRS: 55 T: 41 INTERPRETIVE STATEMENTS: Sinus bradycardia with sinus arrhythmia Nonspecific intraventricular block Abnormal ECG Compared to ECG 08/01/2017 23:35:44 Sinus rhythm no longer present First degree AV block no longer present Right bundle-branch block no longer present Electronically Signed On 12-26-17 08:25:25 CDT by Chintan Lopez
[2017-12-26] MEDS ORDERED: NEBIVOLOL HCL 5 MG TAB PO SCH (09:00)
[2017-12-26] MEDS ORDERED: CLOPIDOGREL 75 MG TABLET PO SCH (09:00)
[2017-12-26] MEDS ORDERED: LISINOPRIL 10 MG TAB PO SCH (09:00)
[2017-12-26 10:11] VITALS: BMI 30.5
[2017-12-26 10:19] LABS: Urine Blood TRACE (NEG); Urine Glucose NEGATIVE (NEG); Urine Protein NEGATIVE (NEG); Urine Specific Gravity 1.015 (1.005-1.030)
[2017-12-26] MEDS: TRAMADOL HCL 50 MG TAB PO PRN ×2 (11:01→17:46)
[2017-12-26] MEDS: ASPIRIN EC 81 MG TAB PO SCH (11:01)
[2017-12-26] MEDS: NA CHLORIDE 0.9% 1,000 ML IV SCH ×3 (11:02→20:42)
[2017-12-26] MEDS: FAMOTIDINE 20 MG/2 ML VIAL IV SCH ×2 (11:16→20:42)
[2017-12-26] MEDS: cloNIDine HCl 0.1 MG TAB PO PRN (15:58)
--- NOTE | 2017-12-26 16:43 | RAD REPORT ---
EXAM DESCRIPTION: MRI - Brain Wo Cont - 12/26/2017 4:24 pm CLINICAL HISTORY: Confusion, weakness, headache COMPARISON: MRI August 2015, CT head July 2017 TECHNIQUE: Sagittal T1-weighted images were obtained along with axial PD, heavily T2-weighted and T2 -FLAIR images. Axial DWI and ADC mapping sequences were also obtained along with coronal heavily T2-w eighted images. FINDINGS: No intracranial hemorrhage, mass or acute infarction. There is no edema or shift of midlin e structures. No extra-axial fluid collections. Joseph-matter/white matter junction is preserved. Signa l voids are seen as a normal finding in the major intracranial vessels. Volume loss changes are prese nt not substantially different from 2015. Patient has minimal cerebral white matter chronic ischemic change. There is focal signal abnormality in the left side of the delroy. This is similar to the prior study. 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 No globe or orbital content abnormality. No sella or supra sella finding. Mastoid air cells and paranasal sinuses are clear. There is prominent soft tissue thickening along the transverse ligament posterior to the dens. There is bone loss change to the dense and probable thinning of the anterior arch C1. This area is only par tially visualized on an MR brain examination. Pattern is not substantially [facility]. Degenerative change, particularly rheumatoid arthritis, can generate this collection o f findings. IMPRESSION: No acute infarction changes are present. No hemorrhage, mass or acute intracranial findi ng. Old ischemic injury is seen in the left side of the delroy similar to 2015. Atrophy is mild and chronic ischemic changes minimal. Prominent degenerative change at the dens C1 level suspected to be from rheumatoid arthritis. This re gion is only partially imaged on this study.
--- NOTE | 2017-12-26 21:25 | P.HP ---
Certification for Inpatient Patient admitted to: Observation With expected LOS: <2 Midnights Practitioner: I am a practitioner with admitting privileges, knowledge of patient current condition, hospital course, and medical plan of care. Services: Services provided to patient in accordance with Admission requirements found in Title 42 Section 412.3 of the Code of Federal Regulations Patient History Date of Service: 12/26/17 Reason for admission: WEAKNESS, COULD NOT TALK THIS AM, MAY HAVE CHEST PAIN History of Present Illness: MS. CARLISLE WOKE UP WITH CONFUSION AND COULD NOT TALK WELL. SISTER SAID SHE HAD CHEST PAIN ALSO BUT SHE DOES NOT REMEMBER. SHE IS COMFORTABLE NOW WHEN I SAW HER AT LUNCH TIME. Allergies codeine [Codeine] Adverse Reaction (Intermediate, Verified 02/04/17 02:36) HEADACHE/NAUSEATED meperidine HCl [From Demerol] Adverse Reaction (Intermediate, Verified 02/04/17 02:36) DIZZINESS/NAUSEA Home Medications: Gabapentin [Neurontin*] 300 mg PO TID 05/21/15 Amitriptyline [Elavil*] 100 mg PO BEDTIME #60 tab 08/31/15 Lisinopril [Zestril] 40 mg PO DAILY #30 tablet 08/31/15 Metformin HCl [Glucophage*] 500 mg PO BIDWM #60 tab 08/31/15 Omeprazole [Prilosec] 20 mg PO DAILY #30 capsule. 08/31/15 Clopidogrel Bisulfate [Plavix*] 75 mg PO DAILY 02/04/17 Fluoxetine HCl [Prozac*] 20 mg PO DAILY 02/04/17 Simvastatin 1 tab PO BEDTIME 02/04/17 Tamsulosin [Flomax*] 0.4 mg PO DAILY 08/02/17 Insulin Glargine,Hum.rec.anlog [Lantus] 20 units SQ BEDTIME 12/26/17 Insulin Lispro [Humalog*] See Protocol SQ TIDWM 12/26/17 Nebivolol HCl [Bystolic] 10 mg PO DAILY 12/26/17 Pantoprazole Sodium [Pantoprazole Sodium] 40 mg PO BEDTIME 12/26/17 - Past Medical/Surgical History Has patient received pneumonia vaccine in the past: Yes Diabetic: Yes -: GERD -: Anxiety -: Hypertension -: CVA -: Depression -: IDDM -: Hyperlipidemia -: Cholecystectomy -: Hysterectomy -: Appendectomy - Family History Mother -: Hypertension Father -: Hypertension - Social History Smoking Status: Never smoker Alcohol use: No CD- Drugs: No Caffeine use: No Place of Residence: Home Review of Systems 10-point ROS is otherwise unremarkable Neurological: As per HPI Physical Examination - Vital Signs Temperature: 97.8 F Blood Pressure: 177/78 Pulse: 62 Respirations: 14 Pulse Ox (%): 94 - Physical Exam General: Alert, Mild distress, Obese HEENT: Atraumatic, PERRLA, Mucous membr. moist/pink, EOMI, Sclerae nonicteric Neck: Supple, 2+ carotid pulse no bruit, No LAD, Without JVD or thyroid abnormality Respiratory: Clear to auscultation bilaterally, Normal air movement Cardiovascular: Regular rate/rhythm, Normal S1 S2 Gastrointestinal: Normal bowel sounds, No tenderness Musculoskeletal: No tenderness Integumentary: No rashes Neurological: Normal speech, Normal strength at 5/5 x4 extr, Normal tone, Other (WALKS WITH WALKER, NO CHANGES) Lymphatics: No axilla or inguinal lymphadenopathy - Studies Laboratory Data (last 24 hrs) 12/26/17 06:05: PT 12.6 H, INR 1.07, APTT 62.4 H 12/26/17 06:05: WBC 12.5 H D, Hgb 11.2 L, Hct 34.9 L, Plt Count 254 12/26/17 06:05: B-Natriuretic Peptide 357 H 12/26/17 06:05: Sodium 134 L, Potassium 4.4, BUN 15, Creatinine 0.88, Glucose 139 H, Magnesium 1.8, Total Bilirubin 0.5, AST 17, ALT 13, Alkaline Phosphatase 77, Lipase 13 L Microbiology Data (last 24 hrs): 12/26/17 06:11 Nasopharnyx Influenza Type A Antigen Screen - Final 12/26/17 06:11 Nasopharnyx Influenza Type B Antigen Screen - Final Assessment and Plan - Problems (Diagnosis) (1) Chest pain Current Visit: Yes Status: Acute Plan: SHE IS A DIABETIC WITH OBESITY AND H/O CVA. RISK OF CAD IS THERE. SHE CAN HAVE OUT PATIENT CHEMICAL ST TEST. 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 AMBULATE AND DC IN AM. - Advance Directives Does patient have a Living Will: No Does patient have a Durable POA for Healthcare: No
[2017-12-26] MEDS: INSULIN DETEMIR 100 UNIT/1 ML INSULIN SQ SCH (21:45)
[2017-12-27] MEDS: cloNIDine HCl 0.1 MG TAB PO PRN ×2 (02:10→21:16)
[2017-12-27] MEDS: NA CHLORIDE 0.9% 1,000 ML IV SCH ×4 (04:00→17:00)
[2017-12-27] MEDS: PANTOPRAZOLE 40MG TABLET PO SCH ×2 (06:30→07:10)
[2017-12-27] MEDS: INSULIN LISPRO 100 UNIT/1 ML SQ SCH ×3 (08:00→16:57)
[2017-12-27] MEDS: LISINOPRIL 20 MG TAB PO SCH (08:26)
[2017-12-27] MEDS: ASPIRIN EC 81 MG TAB PO SCH (08:26)
[2017-12-27] MEDS: GABAPENTIN 100 MG CAP PO SCH ×3 (08:26→21:15)
[2017-12-27] MEDS: NEBIVOLOL HCL 5 MG TAB PO SCH (08:27)
[2017-12-27] MEDS: METFORMIN HCL 500 MG TAB PO SCH ×2 (08:27→17:00)
[2017-12-27] MEDS: FLUOXETINE 20 MG CAP PO SCH (08:27)
[2017-12-27] MEDS: CLOPIDOGREL 75 MG TABLET PO SCH (08:27)
[2017-12-27] MEDS: FAMOTIDINE 20 MG/2 ML VIAL IV SCH ×2 (08:28→21:16)
[2017-12-27] MEDS: TAMSULOSIN 0.4 MG SR CAP PO SCH (08:28)
[2017-12-27 08:34] LABS: Potassium 4.2 mEq/L (3.6-5.0)
[2017-12-27] MEDS ORDERED: FLUOXETINE 10 MG CAP PO SCH (09:00)
[2017-12-27 09:05] LABS: Absolute Lymphocytes (CBC) 1.4 K/uL (0.7-4.9); Absolute Monocytes 0.5 K/uL (0.1-1.3); Absolute Neutrophil 5.2 K/uL (1.8-8.0); Basophils % 0.3 % (0-1.3); Eosinophils % 2.2 % (0-4.4); Hematocrit 34.1 % (36.0-45.0); MCH 28.7 pg (27.0-35.0); MPV 8.4 fL (7.6-11.3); Monocytes % 7.5 % (3.3-12.3); RBC Red Blood Cell Count 4.06 M/uL (3.86-4.86)
--- NOTE | 2017-12-27 09:49 | EKG ---
Test Date: 2017-12-27 Test Time: 09:14:00 [employer] Artist: DOROTHY MEASUREMENT RESULTS: Intervals: Rate: 66 NV: 198 QRSD: 132 QT: 480 QTc: 503 [place]: P: 54 NV: 198 QRS: 39 T: 11 INTERPRETIVE STATEMENTS: Normal sinus rhythm Right bundle branch block Abnormal ECG Compared to ECG 12/26/2017 05:52:49 Right bundle-branch block now present Sinus bradycardia no longer present Sinus arrhythmia no longer present Electronically Signed On 12-27-17 09:48:48 CDT by Anselmo Caballero
--- NOTE | 2017-12-27 13:43 | CON ---
CARDIOLOGY CONSULTATION Reason For Consult: Chest pain. History Of Present Illness: Ms. García gives a very different history from what was given by the diane everett's sister. Ms. García said she was feeling fine. When she tried to get out of bed, she fell , was able to get up right away. There was no loss of consciousness. No chest pain. The sister ins ists there was not chest pain, although I have an interviewed the sister myself. The patient has a r emote history of a pontine stroke. She was treated medically. No vascular intervention was done. S yared being in the hospital she has had EKGs that show nonspecific intraventricular conduction block. It is probably a just a slightly unusual form of right bundle, which is similar to her old EKGs. Anastasia metcalf has had a brain MRI that indicates no acute infarction, no hemorrhage. It is very similar to the M [place] that they did in 2014 when she had her pontine stroke. The patient has never had myocardial infar ction or any vascular interventions. Denies having chest pain. Medications: Outpatient medications have been gabapentin, metformin, amitriptyline, lisinopril, omep razole, Plavix, simvastatin, fluoxetine, tamsulosin, nebivolol, Protonix, insulin. She has underlyin g gastroesophageal reflux disease, hypertension, diabetes, and dyslipidemia. Physical Examination: Vital Signs: 5 feet 4 inches, 178 pounds. General: Alert, oriented, pleasant, not in distress. No carotid bruit. Lungs: Clear. Cardiac exam: Within normal limits. Abdomen: Soft. Extremities: Palpable but 1+ distal pulses. No edema. No ulcers or discoloration. Impression: This is not a case of unstable angina. I am in agreement with Dr. Angel what he wrote i n his note. The patient could be discharged and if she has any chest pain, we could do an outpatient testing, but at this point it seems like her cardiac condition is fairly stable. KELLY Voice ID: [id number] Report ID: [id number]
--- NOTE | 2017-12-27 20:19 | P.PN ---
Subjective Date of Service: 12/27/17 Chief Complaint: WEAKNESS, COULD NOT TALK THIS AM, MAY HAVE CHEST PAIN Subjective: New changes (THIS AM WOKE UP WITH HALLUCINATIONS, PARANOID ABOUT EVERYONE TRYING TO HARM HER.) Review of Systems 10-point ROS is otherwise unremarkable General: Weakness, Malaise Neurological: Confusion Physical Examination - Vital Signs Temperature: 97.9 F Blood Pressure: 177/101 Pulse: 67 Respirations: 18 Pulse Ox (%): 95 - Physical Exam General: Alert, Mild distress, Obese HEENT: Atraumatic, PERRLA, EOMI Neck: Supple, JVD not distended Respiratory: Clear to auscultation bilaterally, Normal air movement Cardiovascular: Regular rate/rhythm, Normal S1 S2 Gastrointestinal: Normal bowel sounds, No tenderness Musculoskeletal: No tenderness Integumentary: No rashes Neurological: Normal speech, Other (ALTERED MENTAL STATUS. HALLUCINATES, BUT DID RECOGNIZE ME.) Lymphatics: No axilla or inguinal lymphadenopathy - Studies Medications List Reviewed: Yes Assessment And Plan - Current Problems (Diagnosis) (1) Chest pain Onset Date: 12/27/17 Current Visit: Yes Status: Acute Plan: SHE IS A DIABETIC WITH OBESITY AND H/O CVA. RISK OF CAD IS THERE. SHE CAN HAVE OUT PATIENT CHEMICAL ST TEST. 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 AMBULATE AND DC IN AM. HALLUCIANATES ORDER EEG ORDER THIAMINE IV. CHECK B12, TSH. CONSULT NEUROLOGY. MOST LIKELY HOSPITAL PSYCHOSIS IN ELDERLY WITH STROKE.
[2017-12-27] MEDS ORDERED: ATORVASTATIN 10 MG TAB PO SCH (21:00)
[2017-12-27] MEDS ORDERED: NA CHLORIDE 0.9% 1,000 ML IV SCH (21:00)
[2017-12-27] MEDS ORDERED: AMITRIPTYLINE 50 MG TAB PO SCH ×2 (21:00)
[2017-12-27] MEDS: INSULIN DETEMIR 100 UNIT/1 ML INSULIN SQ SCH (21:21)
--- NOTE | 2017-12-28 00:05 | CON ---
Reason For Consultation: Consultation called because of altered mental status. History Of Present Illness: Ms. García is an 82-year-old patient [facility]. 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 However, since stroke, she has used a rollator for ambulation and at t imes may intermittently lose balance because of the rollator "getting away from me." She comes into the hospital on the , which is yesterday, with reports of feeling weak and hurting in the chest. Since her admission, there has been no episodes of sudden change in orientation such as confusion, l oss of ability to move arms or legs, or any seizure-like activity. The consultation was called gabbi woodall of possible confusion related to perhaps a new stroke. 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 No acute ischemic or hemo rrhagic changes identified. She did have chronically central spinal stenosis at C5-C6 that was partl y visualized as well on imaging this hospitalization. Rest of her workup was negative for possible i nfection, the urine analysis was unremarkable, and she had the EEG which showed a mildly slow backgro und indicating a mild diffuse disturbance in cerebral activity. Past Medical History: Significant for depression, insulin-dependent diabetes mellitus, dyslipidemia, hypertension, prior stroke. Allergies: CODEINE. Home Medications: Amitriptyline 100 mg at night, Bystolic 10 mg daily, Flomax 0.4 mg daily, Humalog subcutaneously 32 units before breakfast, lisinopril 40 mg daily, metformin 500 mg twice daily, gabap entin 300 mg 3 times daily, Plavix 75 mg daily, Prilosec 20 mg daily, Prozac 20 mg daily, simvastatin 20 mg nightly. She reports taking also aspirin 81 mg daily. Social History: No alcohol, tobacco, or IV drug use. Past Surgical History: Appendectomy, hysterectomy, cholecystectomy. Family History: Hypertension in mother and father. Review of Systems: She denies any recent fevers, chills, nausea, vomiting, myalgias, arthralgias, headache, weight bashir e, or rash. No psychiatric complaints. No gastrointestinal or genitourinary issues. Physical Examination: Vital Signs: Blood pressure 177/101, pulse 67, respiratory rate 18, temperature 97.8, oxygen saturat ion 95% on room air, weight 178 pounds, height 5 feet 4 inches, BMI of 30.6. General: Ms. García is resting comfortably in bed. She is in no acute distress. HEENT: She is normocephalic and atraumatic. Sclerae anicteric. Oropharynx is moist and pink. Neck: Supple. Chest: Clear. Heart: Regular. Extremities: Show no edema or cyanosis. Neurologic: She is alert and oriented to person, place, time, and situation. She knows the city, . She was off on the day and actual date by 2 days, which actually is the day her event occurr ed to bring her to the hospital, and she followed all commands appropriately. Cranial nerve exam rev ealed no deficits on through 12. Motor exam in the upper and lower extremities despite her chronic stroke showed no focal deficits in the arms and legs. Her right side has recovered very well from t he weakness due to the left pontine stroke. Sensory exam intact to light touch and temperature in th e arms and legs with a stocking-glove pattern. Reflexes slightly increased over the right upper and lower extremity versus the left side. Coordination intact, but slow in the right upper and lower ext remity versus the left side. The patient does ambulate with a walker and a rollator. She uses a whe elchair for long distances. Laboratory Studies: White blood cell count 7.4, hemoglobin 11.7, hematocrit 34.1. Differential for white count is normal. Coagulation panel shows INR 1.07. Chemistries unremarkable except slightly d ecreased glomerular filtration rate of 76. Liver function studies are unremarkable. Glucose is 139. Urinalysis shows trace esterase, trace of blood. Urine cultures show less than 10,000 colony-formi ng units. She did have aerobic and anaerobic blood cultures x2 that are negative. Nasopharynx for i nfluenza A and B are unremarkable. Her electrocardiogram shows sinus bradycardia, sinus arrhythmia, and nonspecific intraventricular block. Chest x-ray shows no acute cardiopulmonary processes. Abdom en and pelvis CT scan shows large volume of stool filled, but does not dilate the colon. No acute pr ocess. No significant change from December 14 and that study was on December 26. Assessment: Ms. 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 She reportedly has some issues with memory. At this point, the patient is cleared. There is no evidence of any acute encephalopathy. However, she is at risk for vascular dementia. S he does report no significant family history of dementia, but of multiple strokes in mother. At this point, her workup again reveals no acute stroke and neurologic examination again shows no new focal deficits. Plan: 1.The patient may be discharged and follow up in clinic with Dr. Awan in 1 month. 2.May consider an ambulatory video EEG monitoring study if she has any paroxysmal episodes of confus ion to suggest possibility of seizures. 3.I am going to continue with stroke risk reduction by aggressively addressing diabetes and hyperten rowdy. 4.She should be on the aspirin 81 mg along with Plavix 75 mg daily. 5.High-dose statin, at least 40 mg Zocor, for further stroke risk reduction. In addition, folic aci d 1 mg daily and the patient was instructed on the importance of carefully using her rollator to redu ce risk of falling. 6.May consider decreasing the Elavil or amitriptyline due to potential anticholinergic side effects and effects that may increase risk of falling. Otherwise, the patient will be discharged home in the morning and follow up as indicated with Dr. Awan in 1 month. ALEKSANDAR/KARISSA Voice ID: [id number] Report ID: [id number]
[2017-12-28] MEDS: cloNIDine HCl 0.1 MG TAB PO PRN ×2 (03:40→08:32)
[2017-12-28] MEDS: TRAMADOL HCL 50 MG TAB PO PRN (03:40)
[2017-12-28] MEDS: PANTOPRAZOLE 40MG TABLET PO SCH (06:17)
[2017-12-28] MEDS: INSULIN LISPRO 100 UNIT/1 ML SQ SCH (08:00)
[2017-12-28] MEDS: FAMOTIDINE 20 MG/2 ML VIAL IV SCH (08:31)
[2017-12-28] MEDS: TAMSULOSIN 0.4 MG SR CAP PO SCH (08:31)
[2017-12-28] MEDS: METFORMIN HCL 500 MG TAB PO SCH (08:31)
[2017-12-28] MEDS: GABAPENTIN 100 MG CAP PO SCH (08:31)
[2017-12-28] MEDS: LISINOPRIL 20 MG TAB PO SCH (08:32)
[2017-12-28] MEDS: ASPIRIN EC 81 MG TAB PO SCH (08:32)
[2017-12-28] MEDS: CLOPIDOGREL 75 MG TABLET PO SCH (08:32)
[2017-12-28] MEDS: NEBIVOLOL HCL 5 MG TAB PO SCH (08:33)
[2017-12-28] MEDS: FLUOXETINE 20 MG CAP PO SCH (08:33)
[2017-12-28] MEDS ORDERED: THIAMINE 200 MG/2 ML INJ IVP SCH (09:00)
--- NOTE | 2017-12-28 09:53 | EEG ---
CHART: [id number] TEST ID#: [id number] DATE OF STUDY: 12/27/2017 THE EEG WAS RECORDED PORTABLE IN THE PATIENT'S ROOM ON A 17 CHANNEL MACHINE. ELECTRODES WERE APPLIED IN THE USUAL MANNER USING THE INTERNATIONAL 10-20 SYSTEM. THE WAKING BACKGROUND RHYTHM IN THIS RECORD CONSISTS OF FAIRLY WELL DEVELOPED AND FAIRLY WELL ORGANIZED WAVES OF 7.5 HZ., MAXIMAL IN THE POSTERIOR HEAD REGIONS WHICH ATTENUATE NORMALLY WITH EYE OPENING. LOW-VOLTAGE 15-18 HZ ACTIVITY IS EXPRESSED IN THE FRONTAL AND CENTRAL REGIONS. THERE ARE NO FOCAL OR LATERALIZING FEATURES. NO EPILEPTIFORM ACTIVITY APPEARS. SLEEP DID NOT OCCUR. HYPERVENTILATION WAS NOT PERFORMED. PHOTIC STIMULATION PRODUCED POOR DRIVING BILATERALLY. IMPRESSION: THIS IS A MILDLY ABNORMAL EEG DUE TO A MILDLY SLOW BACKGROUND. THIS IS A NON-SPECIFIC FINDING INDICATING THE PRESENCE OF A MILD DIFFUSE DISTURBANCE IN CERBRAL ACTIVITY.
[2017-12-28 11:24] VITALS: O2SAT 94
[2017-12-28 12:11] VITALS: BP 137/77; TEMP 97.2
--- NOTE | 2017-12-28 15:28 | PN ---
Date of Progress Note: 12/28/2017 Subjective: Ms. Lynn is being seen today 12/28/2017 for followup. Yesterday, she was seen by Dr Meka Caballero for chest pain. Has had no more chest pain. Negative workup. Telemetry showed no changes. She can go home whenever it is okay with Dr. Angel. We will continue her present regimen. We will see her in the office in about 2 weeks. TRACE/KARISSA Voice ID: [id number] Report ID: [id number]
--- NOTE | 2018-01-09 13:02 | P.DS ---
Admission Date: 12/26/17 Discharge Date: 01/09/18 Disposition: ROUTINE DISCHARGE Discharge Condition: FAIR Reason for Admission: WEAKNESS, COULD NOT TALK THIS AM, MAY HAVE CHEST PAIN - Problems (1) Chest pain Onset Date: 12/27/17 Status: Acute (2) Altered mental status Onset Date: 08/02/17 Status: Acute Brief History of Present Illness: MS. CARLISLE WOKE UP WITH CONFUSION AND COULD NOT TALK WELL. SISTER SAID SHE HAD CHEST PAIN ALSO BUT SHE DOES NOT REMEMBER. SHE IS COMFORTABLE NOW WHEN I SAW HER AT LUNCH TIME. SHE IS DOING GREAT, MRI SHOWS NO STROKE. SHE IS STABLE TO DC HOME WITH. Vital Signs/Physical Exam: Temp Pulse Resp BP Pulse Ox 97.2 F 58 16 137/77 92 12/28/17 12:00 12/28/17 12:00 12/28/17 12:00 12/28/17 12:00 12/28/17 12:00 Laboratory Data at Discharge: WBC 7.4 K/uL (4.3-10.9) D 12/27/17 08:05 Hgb 11.7 g/dL (12.0-15.0) L 12/27/17 08:05 Hct 34.1 % (36.0-45.0) L 12/27/17 08:05 Plt Count 235 K/uL (152-406) 12/27/17 08:05 PT 12.6 SECONDS (9.5-12.5) H 12/26/17 06:05 INR 1.07 12/26/17 06:05 APTT 62.4 SECONDS (24.3-36.9) H 12/26/17 06:05 Sodium 135 mEq/L (135-145) 12/27/17 08:05 Potassium 4.2 mEq/L (3.6-5.0) 12/27/17 08:05 BUN 11 mg/dL (6-20) 12/27/17 08:05 Creatinine 0.74 mg/dL (0.44-1.00) 12/27/17 08:05 Glucose 107 mg/dL (65-120) 12/27/17 08:05 Magnesium 1.8 mg/dL (1.8-2.5) 12/26/17 06:05 Total Bilirubin 0.5 mg/dL (0.3-1.2) 12/26/17 06:05 AST 17 IU/L (10-42) 12/26/17 06:05 ALT 13 IU/L (10-60) 12/26/17 06:05 Alkaline Phosphatase 77 IU/L (42-121) 12/26/17 06:05 Troponin I < 0.03 ng/mL (<0.03) 12/26/17 13:34 B-Natriuretic Peptide 357 pg/ml (<=100) H 12/26/17 06:05 Lipase 13 U/L (22-51) L 12/26/17 06:05 Home Medications: Gabapentin [Neurontin*] 300 mg PO TID 05/21/15 Amitriptyline [Elavil*] 100 mg PO BEDTIME #60 tab 08/31/15 Lisinopril [Zestril] 40 mg PO DAILY #30 tablet 08/31/15 Metformin HCl [Glucophage*] 500 mg PO BIDWM #60 tab 08/31/15 Omeprazole [Prilosec] 20 mg PO DAILY #30 capsule. 08/31/15 Clopidogrel Bisulfate [Plavix*] 75 mg PO DAILY 02/04/17 Fluoxetine HCl [Prozac*] 20 mg PO DAILY 02/04/17 Simvastatin 1 tab PO BEDTIME 02/04/17 Tamsulosin [Flomax*] 0.4 mg PO DAILY 08/02/17 Insulin Glargine,Hum.rec.anlog [Lantus] 20 units SQ BEDTIME 12/26/17 Insulin Lispro [Humalog*] See Protocol SQ TIDWM 12/26/17 Nebivolol HCl [Bystolic] 10 mg PO DAILY 12/26/17 Pantoprazole Sodium [Pantoprazole Sodium] 40 mg PO BEDTIME 12/26/17 Diet: ADA Activity: Fall precautions Followup: Edwardo Angel MD [Primary Care Provider] - (call to schedule appointmnet)
== END 2017-12-28 13:47 | disposition home or self-care (01) ==
LOC: ER 05:33 → ERHOLD 07:24 → 4TH 09:05
PROVIDERS: ADMIT Internal Medicine; ATTEND Internal Medicine
DX: R07.9 Chest pain, unspecified (principal); R41.82 Altered mental status, unspecified; E11.9 Type 2 diabetes mellitus without complications; E78.5 Hyperlipidemia, unspecified; I10 Essential (primary) hypertension; F32.9 Major depressive disorder, single episode, unspecified; Z79.82 Long term (current) use of aspirin; E66.9 Obesity, unspecified; Z68.30 Body mass index [BMI] 30.0-30.9, adult; Z86.73 Personal history of transient ischemic attack (TIA), and cerebral infarction without residual deficits
CPT/HCPCS: 36415 ×2; 70551; 71045; 74176; 80048 ×2; 80076; 81003; 82550; 82553; 82962 ×9; 83690; 83735; 83880; 84484 ×3; 85025 ×2; 85610; 85730; 87040 ×2; 87086; 87088; 87804 ×2; 93005 ×2; 95816; 96374; 99284; G0378 ×2; J0696; J3411; J7030 ×5

== ENCOUNTER 2018-02-05 12:18 | Emergency (ER) | payer OTHER, MEDICARE ==
[2018-02-05 13:10] LABS: Absolute Lymphocytes (CBC) 1.8 K/uL (0.7-4.9); Absolute Monocytes 0.5 K/uL (0.1-1.3); Absolute Neutrophil 9.9 K/uL (1.8-8.0); Basophils % 0.3 % (0-1.3); Eosinophils % 0.1 % (0-4.4); Hematocrit 35.8 % (36.0-45.0); Lymphocytes % 14.4 % (15.3-44.8); MCH 27.5 pg (27.0-35.0); MCV 83.1 fL (80-100); MPV 8.5 fL (7.6-11.3); Monocytes % 3.8 % (3.3-12.3); RBC Red Blood Cell Count 4.31 M/uL (3.86-4.86)
[2018-02-05 13:16] LABS: Protime INR 1.09
[2018-02-05 13:23] LABS: Potassium 3.7 mEq/L (3.6-5.0)
[2018-02-05 13:29] LABS: Albumin 4.7 g/dL (3.2-5.5); Bilirubin Direct 0.1 mg/dL (0-0.2); Bilirubin Total 0.5 mg/dL (0.3-1.2); Magnesium 1.8 mg/dL (1.8-2.5); Protein, Total 8.3 g/dL (6.0-8.3)
[2018-02-05 13:36] LABS: Urine Blood NEGATIVE (NEG); Urine Glucose TRACE (NEG); Urine Protein 2+ (NEG); Urine pH 7.5 (5.0-7.0)
--- NOTE | 2018-02-05 14:09 | RAD REPORT ---
EXAM DESCRIPTION: CT - Head Brain Wo Cont - 02/05/2018 1:48 pm CLINICAL HISTORY: Headache status post fall COMPARISON: July 2017 TECHNIQUE: Computed axial tomography of the head was obtained. IV contrast was not requested. All CT scans are performed using dose optimization technique as appropriate and may include automated exposure control or mA/KV adjustment according to patient size. FINDINGS: A small to moderate acute subdural hematoma is present along the right temporal convexity extending into the right frontal and right parietal convexities. There probably is a very small amoun t of subdural blood which extends medially abutting the posterior falx. Shift of the midline structur es 3 millimeter to the left is seen. The ventricles are normal in caliber. An underlying skull fracture is not visualized. Fluid within the sinuses/ mastoids is not seen. IMPRESSION: Small to moderate acute subdural hematoma along the right cerebral convexity with shift of the midline structures 3 millimeters to the left. The exam was discussed with Dr. Hines in the Em ergency Room at 1:55 p.m. February 05, 2018
--- NOTE | 2018-02-05 14:13 | RAD REPORT ---
EXAM DESCRIPTION: [facility] Single View02/05/2018 1:40 pm CLINICAL HISTORY: Hypertension COMPARISON: 2016 FINDINGS: The lungs appear clear of acute infiltrate. The heart is mildly to moderately enlarged. T he aorta is tortuous/ectatic. IMPRESSION: No acute abnormalities displayed
--- NOTE | 2018-02-05 14:25 | EDPHYS ---
Physician Documentation [facility] Name: Skylar Grossman Age: 82 yrs Sex: Female : 1935 Arrival Date: 02/05/2018 Time: 12:21 Bed 2 Private MD: Edwardo Angel V ED Physician Rudy Kong HPI: 02/05 14:07 This 82 yrs old Female presents to ER via Wheelchair with complaints of gs Altered Mental Status. 14:07 The patient presents with decreased responsiveness. Onset: The symptoms/episode gs began/occurred yesterday. Possible causes: head injury, a fall, while walking, onset Monday . Associated signs and symptoms: Pertinent positives: confusion. Current symptoms: In the emergency department the patient's symptoms have improved, mildly. Historical: - Allergies: 12:53 Codeine (Upset stomach); ss - Home Meds: 12:53 amitriptyline 100 mg Oral tab 1 tab nightly [Active]; Bystolic 5 mg oral tab 1 tab once ss daily [Active]; amitriptyline 100 mg Oral tab 1 tab once daily [Active]; Neurontin 300 mg Oral cap 1 cap 3 times per day [Active]; Prozac 20 mg Oral cap 1 cap once daily [Active]; Lantus 100 unit/mL Sub-Q soln 20 unit before breakfast [Active]; Prilosec 20 mg Oral cpDR 1 cap once daily [Active]; Flomax 0.4 mg Oral cp24 1 cap once daily [Active]; simvastatin 20 mg Oral tab 1 tab nightly [Active]; metformin 500 mg Oral tab 1 tab 2 times per day [Active]; Plavix 75 mg Oral tab 1 tab once daily [Active]; - PMHx: 12:53 CVA; Depression; Diabetes - IDDM; GERD; High Cholesterol; Hypertension; ss - Immunization history:: Adult Immunizations up to date. - Social history:: Smoking status: Patient/guardian denies using tobacco. - Ebola Screening: : Patient denies exposure to infectious person Patient denies travel to an Ebola-affected area in the 21 days before illness onset. ROS: 14:07 All other systems are negative. gs Exam: 14:07 Constitutional: The patient appears alert, awake. gs 14:12 Eyes: Pupils equal round and reactive to light, extra-ocular motions intact. Lids and gs lashes normal. Conjunctiva and sclera are non-icteric and not injected. Cornea within normal limits. Periorbital areas with no swelling, redness, or edema. ENT: Nares patent. No nasal discharge, no septal abnormalities noted. Tympanic membranes are normal and external auditory canals are clear. Oropharynx with no redness, swelling, or masses, exudates, or evidence of obstruction, uvula midline. Mucous membranes moist. Neck: Trachea midline, no thyromegaly or masses palpated, and no cervical lymphadenopathy. Supple, full range of motion without nuchal rigidity, or vertebral point tenderness. No Meningismus. Chest/axilla: Normal chest wall appearance and motion. Nontender with no deformity. No lesions are appreciated. Cardiovascular: Regular rate and rhythm with a normal S1 and S2. No gallops, murmurs, or rubs. Normal PMI, no JVD. No pulse deficits. Respiratory: Lungs have equal breath sounds bilaterally, clear to auscultation and percussion. No rales, rhonchi or wheezes noted. No increased work of breathing, no retractions or nasal flaring. Abdomen/GI: Soft, non-tender, with normal bowel sounds. No distension or tympany. No guarding or rebound. No evidence of tenderness throughout. Back: No spinal tenderness. No costovertebral tenderness. Full range of motion. Skin: Warm, dry with normal turgor. Normal color with no rashes, no lesions, and no evidence of cellulitis. MS/ Extremity: Pulses equal, no cyanosis. Neurovascular intact. Full, normal range of motion. 14:12 Head/face: Noted is abrasion(s), that are mild, of the right cheek. 14:22 Neuro: Orientation: to person, place, Cranial nerves: CN II- XII are normal as tested, gs Motor: moves all fours, Sensation: no obvious gross deficits, no acute changes, Abnormal movements: there are no abnormal movements. Vital Signs: 12:53 BP 234 / 93; Pulse 85; Resp 22; Temp 98.0(O); Pulse Ox 96% on R/A; Weight 79.38 kg; ss Height 5 ft. 4 in. (162.56 cm); Pain 8/10; 13:26 BP 193 / 93; Pulse 83; Resp 20; Pulse Ox 96% ; sv 13:35 BP 172 / 97; sv 14:02 BP 167 / 115; Pulse 77; Resp 18; Pulse Ox 97% on R/A; sv 14:35 BP 206 / 93; Pulse 77; Resp 14; Pulse Ox 96% on R/A; sv 15:45 BP 208 / 124; Pulse 77; Resp 21; Temp 97.1(TE); Pulse Ox 97% on R/A; sv 16:00 BP 208 / 83; Pulse 76; Resp 20; Temp 97.6(TE); Pulse Ox 96% on R/A; sv 16:32 BP 177 / 104; Pulse 77; Resp 16; Pulse Ox 96% on R/A; sv 12:53 Body Mass Index 30.04 (79.38 kg, 162.56 cm) ss [place] Coma Score: 14:22 Eye Response: spontaneous(4). Verbal Response: confused(4). Motor Response: obeys gs commands(6). Total: 14. MDM: 12:55 Patient medically screened. gs 14:22 Differential Diagnosis: CVA, electrolyte abnormality, intracranial bleed, volume gs depletion. Data reviewed: vital signs, nurses notes. 02/05 12:45 Order name: Glucose, Ancillary Testing; Complete Time: 13:57 EDMS 02/05 12:57 Order name: Basic Metabolic Panel 02/05 12:57 Order name: BNP 02/05 12:57 Order name: CBC with Diff 02/05 12:57 Order name: CPK 02/05 12:57 Order name: LFT's 02/05 12:57 Order name: Magnesium 02/05 12:57 Order name: PT-INR; Complete Time: 13:57 02/05 12:57 Order name: Troponin (emerg Dept Use Only); Complete Time: 13:57 02/05 12:57 Order name: Basic Metabolic Panel; Complete Time: 13:57 EDMS 02/05 12:57 Order name: BNP B-Type Natriuretic Peptide; Complete Time: 13:57 EDMS 02/05 12:57 Order name: CBC with Automated Diff; Complete Time: 13:57 EDMS 02/05 12:57 Order name: Creatine Phosphokinase; Complete Time: 13:57 EDMS 02/05 12:57 Order name: Liver (Hepatic) Function; Complete Time: 13:57 EDMS 02/05 12:53 Order name: EKG; Complete Time: 12:54 sv 02/05 12:53 Order name: EKG - Nurse/Tech; Complete Time: 12:53 sv 02/05 12:57 Order name: XRAY Chest (1 view); Complete Time: 14:25 02/05 12:57 Order name: Cardiac monitoring; Complete Time: 12:58 02/05 12:57 Order name: IV Saline Lock; Complete Time: 12:58 02/05 12:57 Order name: Magnesium; Complete Time: 13:57 EDOK 02/05 13:32 Order name: Urine Dipstick--Ancillary (enter results); Complete Time: 13:57 02/05 13:37 Order name: CT Head Brain wo Cont; Complete Time: 14:25 sv 02/05 14:12 Order name: Platelets, Leukored Pheresis 02/05 14:13 Order name: ABO/RH typing [facility] 02/05 15:00 Order name: Antibody Screen [facility] 02/05 15:38 Order name: ABO/RH no charge [facility] 02/05 12:57 Order name: Labs collected and sent; Complete Time: 12:58 02/05 12:57 Order name: O2 Per Protocol; Complete Time: 12:58 02/05 12:57 Order name: O2 Sat Monitoring; Complete Time: 12:58 02/05 12:57 Order name: Urine Dipstick-Ancillary (obtain specimen); Complete Time: 13:26 gs Administered Medications: 14:55 Drug: Lopressor 5 mg Route: IVP; Site: right antecubital; sv 16:03 Follow up: Response: No adverse reaction sv 16:23 Drug: Lopressor 5 mg Route: IVP; Site: right antecubital; sv 16:30 Follow up: Response: No adverse reaction sv 16:27 Drug: Enalaprilat 1.25 mg Route: IV; Rate: calculated rate; Site: right antecubital; ss 16:30 Follow up: Response: No adverse reaction; IV Status: Completed infusion; IV Intake: 1ml sv Point of Care Testing: Blood Glucose: 12:53 Blood Glucose: 169 mg/dL; sv Ranges: Critical Glucose Levels:Adult <50 mg/dl or >400 mg/dl <40 mg/dl or >180 mg/dl Disposition: 14:22 Critical Care:. gs Disposition: 02/05/18 14:24 Transfer ordered to [facility]. Diagnosis is Traumatic subdural hemorrhage. - Reason for transfer: Higher level of care. - Accepting physician is napoleon. - Condition is Stable. - Problem is new. - Symptoms are unchanged. Critical care time excluding procedures: 14:22 Critical care time: Bedside Care: 10 minutes, Consultation: 10 minutes, Family gs Intervention: 10 minutes. Total time: 30 minutes Signatures: Dispatcher [employer] EDRita Quevedo RN RN sv Smirch, Shelby, RN RN ss Starr, Gregory, MD MD gs Corrections: (The following items were deleted from the chart) 14:23 14:12 Eyes: Pupils equal round and reactive to light, extra-ocular motions intact. Lids gs and lashes normal. Conjunctiva and sclera are non-icteric and not injected. Cornea within normal limits. Periorbital areas with no swelling, redness, or edema. ENT: Nares patent. No nasal discharge, no septal abnormalities noted. Tympanic membranes are normal and external auditory canals are clear. Oropharynx with no redness, swelling, or masses, exudates, or evidence of obstruction, uvula midline. Mucous membranes moist. Neck: Trachea midline, no thyromegaly or masses palpated, and no cervical lymphadenopathy. Supple, full range of motion without nuchal rigidity, or vertebral point tenderness. No Meningismus. Chest/axilla: Normal chest wall appearance and motion. Nontender with no deformity. No lesions are appreciated. Cardiovascular: Regular rate and rhythm with a normal S1 and S2. No gallops, murmurs, or rubs. Normal PMI, no JVD. No pulse deficits. Respiratory: Lungs have equal breath sounds bilaterally, clear to auscultation and percussion. No rales, rhonchi or wheezes noted. No increased work of breathing, no retractions or nasal flaring. Abdomen/GI: Soft, non-tender, with normal bowel sounds. No distension or tympany. No guarding or rebound. No evidence of tenderness throughout. Back: No spinal tenderness. No costovertebral tenderness. Full range of motion. Skin: Warm, dry with normal turgor. Normal color with no rashes, no lesions, and no evidence of cellulitis. MS/ Extremity: Pulses equal, no cyanosis. Neurovascular intact. Full, normal range of motion. Neuro: Awake and alert, GCS 15, oriented to person, place, time, and situation. Cranial nerves II-XII grossly intact. Motor strength 5/5 in all extremities. Sensory grossly intact. Cerebellar exam normal. Normal gait. 14:58 14:12 TYPE AND SCREEN+[id number].BRZ ordered. EDMS EDMS 16:42 14:24 02/05/2018 14:24 Transfer ordered to [facility]. sv Diagnosis is Traumatic subdural hemorrhage. Reason for transfer: Higher level of care. Accepting physician is napoleon. Condition is Stable. Problem is new. Symptoms are unchanged. gs
--- NOTE | 2018-02-05 14:25 | ER ---
Nurse's Notes [facility] Name: Skylar Grossman Age: 82 yrs Sex: Female : 1935 Arrival Date: 02/05/2018 Time: 12:21 Bed 2 Private MD: Edwardo Angel V Diagnosis: Traumatic subdural hemorrhage Presentation: 02/05 12:45 Presenting complaint: sister states that patient went to bed at 2000 last night and ss woke up this morning with AMS. Pt is currently A\T\O x3, reports a headache and generally not feeling well. Pt was seen by PCP last Monday and had two changes to her blood pressure medications. Transition of care: patient was not received from another setting of care. Onset of symptoms is unknown. Risk Assessment: Do you want to hurt yourself or someone else? Patient reports no desire to harm self or others. Initial Sepsis Screen: Does the patient meet any 2 criteria? RR > 20 per min. Altered Mental Status. Does the patient have a suspected source of infection? No. Patient's initial sepsis screen is negative. Care prior to arrival: None. 12:45 Method Of Arrival: Wheelchair ss 12:45 Acuity: FARIDA 2 ss Historical: - Allergies: 12:53 Codeine (Upset stomach); ss - Home Meds: 12:53 amitriptyline 100 mg Oral tab 1 tab nightly [Active]; Bystolic 5 mg oral tab 1 tab once ss daily [Active]; amitriptyline 100 mg Oral tab 1 tab once daily [Active]; Neurontin 300 mg Oral cap 1 cap 3 times per day [Active]; Prozac 20 mg Oral cap 1 cap once daily [Active]; Lantus 100 unit/mL Sub-Q soln 20 unit before breakfast [Active]; Prilosec 20 mg Oral cpDR 1 cap once daily [Active]; Flomax 0.4 mg Oral cp24 1 cap once daily [Active]; simvastatin 20 mg Oral tab 1 tab nightly [Active]; metformin 500 mg Oral tab 1 tab 2 times per day [Active]; Plavix 75 mg Oral tab 1 tab once daily [Active]; - PMHx: 12:53 CVA; Depression; Diabetes - IDDM; GERD; High Cholesterol; Hypertension; ss - Immunization history:: Adult Immunizations up to date. - Social history:: Smoking status: Patient/guardian denies using tobacco. - Ebola Screening: : Patient denies exposure to infectious person Patient denies travel to an Ebola-affected area in the 21 days before illness onset. Screenin:52 Abuse screen: Denies threats or abuse. Denies injuries from another. Nutritional sv screening: No deficits noted. Tuberculosis screening: No symptoms or risk factors identified. 13:10 Fall Risk None identified. sv Assessment: 13:00 General: Appears in no apparent distress. comfortable, obese, Behavior is calm, sv cooperative, appropriate for age. Pain: Complains of pain in top of head and forehead Pain does not radiate. Pain currently is 8 out of 10 on a pain scale. Quality of pain is described as throbbing, Is continuous. Neuro: Level of Consciousness is awake, alert, obeys commands, Oriented to person, place, time, situation, Moves all extremities. Full function Speech is normal, Facial symmetry appears normal, Reports headache frontal area, and top of head. Cardiovascular: Heart tones S1 S2 present Patient's skin is warm and dry. Pulses are 3+ in right radial artery and left radial artery. Respiratory: Respiratory effort is even, unlabored, Respiratory pattern is regular, symmetrical, Breath sounds are clear bilaterally. GI: No signs and/or symptoms were reported involving the gastrointestinal system. : No signs and/or symptoms were reported regarding the genitourinary system. EENT: No signs and/or symptoms were reported regarding the EENT system. Derm: Skin is pink, warm \T\ dry. Musculoskeletal: Range of motion: intact in all extremities. 13:00 Injury Description: Abrasion sustained to right eye and right side of forehead is sv scabbed, was sustained 2 days ago. Daughter stated that the pt fell this past Monday getting up in the middle of the night, was reaching down to get her shoe on and pt fell face first hitting her face on the carpet. 15:20 Reassessment: Patient reports she feels the urge to void. Assisted patient onto bedpan. ss Sister remains at bedside and instructed to use call light when patient is finished voiding. 15:50 Reassessment: Platelet administration started. See transfusion sheet. sv 16:41 Reassessment: Patient and/or family updated on plan of care and expected duration. Pain sv level reassessed. Report given to Leny from EMS. Pt continues with intermittent confusion. Vital Signs: 12:53 BP 234 / 93; Pulse 85; Resp 22; Temp 98.0(O); Pulse Ox 96% on R/A; Weight 79.38 kg; ss Height 5 ft. 4 in. (162.56 cm); Pain 8/10; 13:26 BP 193 / 93; Pulse 83; Resp 20; Pulse Ox 96% ; sv 13:35 BP 172 / 97; sv 14:02 BP 167 / 115; Pulse 77; Resp 18; Pulse Ox 97% on R/A; sv 14:35 BP 206 / 93; Pulse 77; Resp 14; Pulse Ox 96% on R/A; sv 15:45 BP 208 / 124; Pulse 77; Resp 21; Temp 97.1(TE); Pulse Ox 97% on R/A; sv 16:00 BP 208 / 83; Pulse 76; Resp 20; Temp 97.6(TE); Pulse Ox 96% on R/A; sv 16:32 BP 177 / 104; Pulse 77; Resp 16; Pulse Ox 96% on R/A; sv 12:53 Body Mass Index 30.04 (79.38 kg, 162.56 cm) ss Luna Coma Score: 14:22 Eye Response: spontaneous(4). Verbal Response: confused(4). Motor Response: obeys gs commands(6). Total: 14. ED Course: 12:21 Patient arrived in ED. mr 12:21 Edwardo Angel MD is Private Physician. mr 12:34 Rudy Kong MD is Attending Physician. gs 12:48 Triage completed. ss 12:51 Rita Koroma, RN is Primary Nurse. sv 12:51 Patient has correct armband on for positive identification. Placed in gown. Bed in low sv position. Call light in reach. Adult w/ patient. Pulse ox on. NIBP on. 12:52 Arm band placed on right wrist. sv 12:54 Initial lab(s) drawn, by me, EKG done, by ED staff, reviewed by Rudy Kong MD. jb1 Inserted saline lock: 22 gauge in right antecubital area, using aseptic technique. Blood collected. 13:25 Awaiting lab results, Awaiting radiology results. Awaiting CT Scan. sv 13:25 Straight cath inserted, using sterile technique, 16 Fr. Specimen obtained. Returned sv clear yellow urine. Patient tolerated well. 13:25 X-ray(s) taken. sv 13:26 XRAY Chest (1 view) Sent. sv 13:26 Basic Metabolic Panel Sent. sv 13:26 BNP Sent. sv 13:26 CBC with Diff Sent. sv 13:26 CPK Sent. sv 13:26 LFT's Sent. sv 13:26 Magnesium Sent. sv 13:38 X-ray completed. Portable x-ray completed in exam room. Patient tolerated procedure jw2 well. 13:40 XRAY Chest (1 view) In Process Unspecified. EDMS 13:[address] via stretcher. sv 13:48 CT Head Brain wo Cont In Process Unspecified. EDMS 13:48 CT completed. Patient tolerated procedure well. Patient moved back from CT. sj 14:45 T\T\S collected, blood band applied to patient. sg 14:59 Consent for blood and/or blood product transfusion explained by staff, signed by sv guardian. 16:41 No provider procedures requiring assistance completed. Patient transferred, IV remains sv in place. intact. Administered Medications: 14:55 Drug: Lopressor 5 mg Route: IVP; Site: right antecubital; sv 16:03 Follow up: Response: No adverse reaction sv 16:23 Drug: Lopressor 5 mg Route: IVP; Site: right antecubital; sv 16:30 Follow up: Response: No adverse reaction sv 16:27 Drug: Enalaprilat 1.25 mg Route: IV; Rate: calculated rate; Site: right antecubital; ss 16:30 Follow up: Response: No adverse reaction; IV Status: Completed infusion; IV Intake: 1ml sv Point of Care Testing: Blood Glucose: 12:53 Blood Glucose: 169 mg/dL; sv Ranges: Intake: 16:30 IV: 1ml; Total: 1ml. sv Output: 13:25 Urine: 850ml (Straight Cath); Total: 850ml. sv Outcome: 14:24 ER care complete, transfer ordered by . 14:32 Transferred by ground EMS to [facility], Transfer form completed. Note: sv Report called to Sridevi Arredondo RN 14:32 Condition: stable 14:32 Instructed on the need for transfer. 16:42 Patient left the ED. sv Signatures: Dispatcher [employer] Markus Linda1 Rita Koroma, JOSE EDUARDO Wong, JOSE EDUARDO García RN sg Fabian, Belén Patton, Astrid Hernandez RN RN ss Searfin, Vilma 2 Rudy Kong MD MD
[2018-02-05] MEDS ORDERED: NA CHLORIDE 0.9% 500 ML ONE (14:42)
[2018-02-05] MEDS ORDERED: METOPROLOL TARTRATE 5 MG/5 ML INJ IV ONE ×2 (14:44→16:11)
[2018-02-05] MEDS ORDERED: ENALAPRILAT 1.25 MG/ML VIAL IV ONE (16:28)
[2018-02-05 16:54] VITALS: TEMP 97.6; O2SAT 96
[2018-02-05 16:55] VITALS: BP 177/104
--- NOTE | 2018-02-06 06:32 | EKG ---
Test Date: 2018-02-05 Test Time: 12:48:01 Material Control Supervisor: VIANNEY MEASUREMENT RESULTS: Intervals: Rate: 0 CO: QRSD: 0 QT: 0 QTc: 0 [place]: P: CO: QRS: 0 T: 0 INTERPRETIVE STATEMENTS: No QRS complexes found, no ECG analysis possible Electronically Signed On 02-06-18 06:32:21 CDT by Anselmo Caballero
--- NOTE | 2018-02-06 15:03 | EKG ---
Test Date: 2018-02-05 Test Time: 12:49:49 Mortgage Servicing Specialist: VIANNEY MEASUREMENT RESULTS: Intervals: Rate: 84 NH: 212 QRSD: 146 QT: 462 QTc: 545 [place]: P: 59 NH: 212 QRS: 30 T: -4 INTERPRETIVE STATEMENTS: Sinus rhythm with 1st degree AV block Right bundle branch block Cannot rule out Inferior infarct, age undetermined Abnormal ECG Compared to ECG 02/05/2018 12:48:01 First degree AV block now present Right bundle-branch block now present Myocardial infarct finding now present Electronically Signed On 02-06-18 14:59:16 CDT by Chintan Lopez
== END 2018-02-05 16:42 | disposition short-term general hospital (02) ==
LOC: ER 12:18
PROC: 30233R1 Transfusion of Nonautologous Platelets into Peripheral Vein, Percutaneous Approach (ICD-10-PCS; principal; 2018-02-05)
DX: S06.5X0A Traumatic subdural hemorrhage without loss of consciousness, initial encounter (principal); W19.XXXA Unspecified fall, initial encounter; Y93.01 Activity, walking, marching and hiking; Y92.9 Unspecified place or not applicable; Z79.4 Long term (current) use of insulin; Z86.73 Personal history of transient ischemic attack (TIA), and cerebral infarction without residual deficits; I10 Essential (primary) hypertension; E11.9 Type 2 diabetes mellitus without complications; E78.00 Pure hypercholesterolemia, unspecified
CPT/HCPCS: 36415; 36430; 70450; 71045; 80048; 80076; 81003; 82550; 82962; 83735; 83880; 84484; 85025; 85610; 86850; 86900; 86901; 93005 ×2; P9035; 51702; 96374; 96375; 99285

== ENCOUNTER 2018-04-19 12:24 | Emergency (ER) | payer OTHER, MEDICARE ==
[2018-04-19 13:12] LABS: Absolute Monocytes 0.7 K/uL (0.1-1.3); Absolute Neutrophil 5.5 K/uL (1.8-8.0); Basophils % 0.4 % (0-1.3); Eosinophils % 1.6 % (0-4.4); Hematocrit 31.8 % (36.0-45.0); Lymphocytes % 24.4 % (15.3-44.8); MCH 27.9 pg (27.0-35.0); MCV 82.6 fL (80-100); MPV 7.4 fL (7.6-11.3); Monocytes % 8.1 % (3.3-12.3); RBC Red Blood Cell Count 3.85 M/uL (3.86-4.86)
[2018-04-19 13:21] LABS: Protime INR 1.08
[2018-04-19 13:29] LABS: Magnesium 1.8 mg/dL (1.8-2.4); Potassium 4.2 mmol/L (3.5-5.1)
--- NOTE | 2018-04-19 13:47 | RAD REPORT ---
EXAM DESCRIPTION: [place] Single View04/19/2018 1:23 pm CLINICAL HISTORY: Chest pain COMPARISON: January 2017 FINDINGS: The lungs appear clear of acute infiltrate. The heart is mildly enlarged. The aorta is to rtuous/ectatic IMPRESSION: No acute abnormalities displayed
--- NOTE | 2018-04-19 14:35 | ER ---
Nurse's Notes [facility] Name: Skylar Grossman Age: 82 yrs Sex: Female : 1935 Arrival Date: 04/19/2018 Time: 12:25 Bed 8 Private MD: Diagnosis: Orthostatic hypotension Presentation: 04/19 12:25 Presenting complaint: EMS states: Pt is WC bound, had to use the restroom and was about la1 to try to get up with assistance but got dizzy and pale, never passed out, upon arrival pt was feeling much better, BP on scene 100/56. pt alert, oriendted x4. Transition of care: patient was not received from another setting of care. Onset of symptoms was April 19, 2018. Risk Assessment: Do you want to hurt yourself or someone else? Patient reports no desire to harm self or others. Initial Sepsis Screen: Does the patient meet any 2 criteria? No. Patient's initial sepsis screen is negative. Does the patient have a suspected source of infection? No. Patient's initial sepsis screen is negative. Care prior to arrival: IV initiated. 20 GA, in the left antecubital area. 12:25 Method Of Arrival: EMS: [facility] la1 12:25 Acuity: FARIDA 3 la1 Historical: - Allergies: 12:27 Codeine (Upset stomach); la1 - PMHx: 12:27 CVA; Depression; Diabetes - IDDM; GERD; High Cholesterol; Hypertension; la1 - Immunization history:: Adult Immunizations up to date. - Social history:: Smoking status: unknown. - Ebola Screening: : No symptoms or risks identified at this time. Screenin:04 Abuse screen: Denies threats or abuse. Nutritional screening: No deficits noted. la1 Tuberculosis screening: No symptoms or risk factors identified. Fall Risk Fall in past 12 months (25 points). Secondary diagnosis (15 points) IV access (20 points). Ambulatory Aid- Crutches/Cane/Walker (15 pts). Gait- Weak (10 pts.). Total Nettles Fall Scale indicates High Risk Score (45 or more points). Family Present and informed to notify staff if the need to leave the bedside As available patient and family educated on Fall Prevention Program and Strategies. Assessment: 13:03 General: Appears in no apparent distress. Behavior is calm, cooperative, appropriate la1 for age. Pain: Denies pain. Neuro: Level of Consciousness is awake, alert, obeys commands, Oriented to person, place, time, situation. Cardiovascular: Heart tones S1 S2 present Capillary refill < 3 seconds Patient's skin is warm and dry. Respiratory: Airway is patent Respiratory effort is even, unlabored, Respiratory pattern is regular, symmetrical. GI: No signs and/or symptoms were reported involving the gastrointestinal system. : No signs and/or symptoms were reported regarding the genitourinary system. 14:31 Reassessment: Patient appears in no apparent distress at this time. No changes from la1 previously documented assessment. Patient and/or family updated on plan of care and expected duration. Pain level reassessed. Patient is alert, oriented x 3, equal unlabored respirations, skin warm/dry/pink. Vital Signs: 12:27 BP 129 / 76; Pulse 78; Resp 16; Temp 98.3; Pulse Ox 100% on R/A; la1 13:34 BP 148 / 65 Supine; Pulse 80; la1 13:34 BP 151 / 80 Sitting; Pulse 80; la1 13:34 BP 116 / 60 Standing; Pulse 100; la1 14:30 BP 142 / 71 Standing; Pulse 90; la1 ED Course: 12:25 Patient arrived in ED. la1 12:26 Triage completed. la1 12:28 Good Vazquez NP is PHCP. pm1 12:28 Kareem Atkinson MD is Attending Physician. pm1 12:28 Arm band placed on right wrist. la1 12:29 PHCP role handed off by Good Vazquez NP jr8 12:29 Bogdan Hay PA is PHCP. jr8 12:54 EKG done, by neurophysiology tech. reviewed by Bogdan HOLLOWAY. tc 13:03 Chauncey Villarreal, JOSE EDUARDO is Primary Nurse. la1 13:04 Bed in low position. Call light in reach. Side rails up X 1. Pulse ox on. NIBP on. la1 13:04 No provider procedures requiring assistance completed. Maintain EMS IV. Dressing la1 intact. Good blood return noted. Site clean \T\ dry. Gauge \T\ site: 20g lac. 13:24 XRAY Chest (1 view) In Process Unspecified. EDMS 14:46 IV discontinued, intact, bleeding controlled, No redness/swelling at site. Pressure la1 dressing applied. Administered Medications: 13:34 Drug: NS 0.9% 1000 ml Route: IV; Rate: 1 bolus; Site: left antecubital; la1 14:30 Follow up: IV Status: Completed infusion la1 14:31 Follow up: IV Status: Completed infusion la1 Outcome: 14:35 Discharge ordered by MD. pacheco 14:46 Discharged to home via wheelchair, with family. la1 14:46 Condition: stable 14:46 Discharge instructions given to family, Instructed on discharge instructions, follow up and referral plans. Demonstrated understanding of instructions, follow-up care. 14:46 Patient left the ED. la1 Signatures: Dispatcher [employer] EDMS Bogdan Hay PA PA jr8 Leila Seals, microcomputer technician EKG Ttc Chauncey Villarreal RN RN la1 Good Vazquez, POWER PLANT MANAGER POWER PLANT MANAGER pm1
--- NOTE | 2018-04-19 14:35 | EDPHYS ---
Physician Documentation [facility] Name: Skylar Grossman Age: 82 yrs Sex: Female : 1935 Arrival Date: 04/19/2018 Time: 12:25 Bed 8 Private MD: ED Physician Kareem Atkinson HPI: 04/19 12:34 This 82 yrs old Female presents to ER via EMS with complaints of Near Syncope.jr8 12:34 The patient has experienced near-syncope, felt dizzy, felt faint. Onset: The jr8 symptoms/episode began/occurred acutely, today. Duration: This was a single episode. Context: the episode(s) was witnessed, by family, occurred at home, occurred while the patient was standing. Associated injury: The patient did not suffer any apparent associated injury. Associated signs and symptoms: Pertinent positives: dizziness. Current symptoms: Currently, the patient is not experiencing any symptoms, the patient feels back to baseline, no decreased level of consciousness, no confusion, no dysphasia, no headache, no paralysis, no visual changes. The patient has not experienced similar symptoms in the past. The patient has not recently seen a physician. 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 Stated that she had a spell this morning but when transferring out of her wheel chair felt like she was going to pass out. EMS stated that family saw her become sweaty and pale . Historical: - Allergies: 12:27 Codeine (Upset stomach); la1 - PMHx: 12:27 CVA; Depression; Diabetes - IDDM; GERD; High Cholesterol; Hypertension; la1 - Immunization history:: Adult Immunizations up to date. - Social history:: Smoking status: unknown. - Ebola Screening: : No symptoms or risks identified at this time. ROS: 12:34 Eyes: Negative for injury, pain, redness, and discharge, ENT: Negative for injury, jr8 pain, and discharge, Neck: Negative for injury, pain, and swelling, Cardiovascular: Negative for chest pain, palpitations, and edema, Respiratory: Negative for shortness of breath, cough, wheezing, and pleuritic chest pain, Abdomen/GI: Negative for abdominal pain, nausea, vomiting, diarrhea, and constipation, Back: Negative for injury and pain, MS/Extremity: Negative for injury and deformity, Skin: Negative for injury, rash, and discoloration. 12:34 Neuro: Positive for dizziness, near syncope, Negative for altered mental status, gait disturbance, headache, hearing loss, loss of consciousness, numbness, seizure activity, speech changes, syncope, tingling, tinnitus, tremor, visual changes, weakness. Exam: 12:34 Eyes: Pupils equal round and reactive to light, extra-ocular motions intact. Lids and jr8 lashes normal. Conjunctiva and sclera are non-icteric and not injected. Cornea within normal limits. Periorbital areas with no swelling, redness, or edema. ENT: Nares patent. No nasal discharge, no septal abnormalities noted. Tympanic membranes are normal and external auditory canals are clear. Oropharynx with no redness, swelling, or masses, exudates, or evidence of obstruction, uvula midline. Mucous membranes moist. Neck: Trachea midline, no thyromegaly or masses palpated, and no cervical lymphadenopathy. Supple, full range of motion without nuchal rigidity, or vertebral point tenderness. No Meningismus. Cardiovascular: Regular rate and rhythm with a normal S1 and S2. No gallops, murmurs, or rubs. Normal PMI, no JVD. No pulse deficits. Respiratory: Lungs have equal breath sounds bilaterally, clear to auscultation and percussion. No rales, rhonchi or wheezes noted. No increased work of breathing, no retractions or nasal flaring. Abdomen/GI: Soft, non-tender, with normal bowel sounds. No distension or tympany. No guarding or rebound. No evidence of tenderness throughout. Back: No spinal tenderness. No costovertebral tenderness. Full range of motion. Skin: Warm, dry with normal turgor. Normal color with no rashes, no lesions, and no evidence of cellulitis. MS/ Extremity: Pulses equal, no cyanosis. Neurovascular intact. Full, normal range of motion. Neuro: Awake and alert, GCS 15, oriented to person, place, time, and situation. Cranial nerves II-XII grossly intact. Motor strength 5/5 in all extremities. Sensory grossly intact. Cerebellar exam normal. Normal gait. Vital Signs: 12:27 BP 129 / 76; Pulse 78; Resp 16; Temp 98.3; Pulse Ox 100% on R/A; la1 13:34 BP 148 / 65 Supine; Pulse 80; la1 13:34 BP 151 / 80 Sitting; Pulse 80; la1 13:34 BP 116 / 60 Standing; Pulse 100; la1 14:30 BP 142 / 71 Standing; Pulse 90; la1 MDM: 12:29 Patient medically screened. [facility] 14:34 Data reviewed: vital signs, nurses notes, lab test result(s), EKG, radiologic studies, jr8 plain films. Data interpreted: Pulse oximetry: on room air is 100 %. Interpretation: normal. Counseling: I had a detailed discussion with the patient and/or guardian regarding: the historical points, exam findings, and any diagnostic results supporting the discharge/admit diagnosis, lab results, radiology results, the need for outpatient follow up, a family practitioner, to return to the emergency department if symptoms worsen or persist or if there are any questions or concerns that arise at home. Response to treatment: the patient's symptoms have resolved after treatment, patient is well hydrated. 04/19 12:29 Order name: Basic Metabolic Panel; Complete Time: 13:45 [facility] 04/19 12:29 Order name: CBC with Diff; Complete Time: 13:15 [facility] 04/19 12:29 Order name: Magnesium; Complete Time: 13:45 [facility] 04/19 12:29 Order name: NT PRO-BNP; Complete Time: 13:45 [facility] 04/19 12:29 Order name: PT-INR; Complete Time: 13:45 [facility] 04/19 12:29 Order name: XRAY Chest (1 view); Complete Time: 13:50 [facility] 04/19 12:29 Order name: EKG; Complete Time: 12:30 [facility] 04/19 12:29 Order name: Cardiac monitoring; Complete Time: 13:05 [facility] 04/19 12:29 Order name: EKG - Nurse/Tech; Complete Time: 13:05 [facility] 04/19 12:29 Order name: IV Saline Lock; Complete Time: 13:05 [facility] 04/19 12:29 Order name: Labs collected and sent; Complete Time: 13:05 [facility] 04/19 12:29 Order name: O2 Per Protocol; Complete Time: 13:05 [facility] 04/19 12:29 Order name: O2 Sat Monitoring; Complete Time: 13:05 [facility] 04/19 12:29 Order name: Orthostatic Blood Pressure; Complete Time: 13:33 jr8 Administered Medications: 13:34 Drug: NS 0.9% 1000 ml Route: IV; Rate: 1 bolus; Site: left antecubital; la1 14:30 Follow up: IV Status: Completed infusion la1 14:31 Follow up: IV Status: Completed infusion la1 Disposition: 16:17 Co-signature as Attending Physician, Kareem Atkinson MD. rn Disposition: 04/19/18 14:35 Discharged to Home. Impression: Orthostatic hypotension. - Condition is Stable. - Discharge Instructions: Orthostatic Hypotension. - Medication Reconciliation Form, Thank You Letter, Antibiotic Education, Prescription Opioid Use form. - Follow up: Private Physician; When: 2 - 3 days; Reason: Recheck today's complaints, Continuance of care, Re-evaluation by your physician. - Problem is new. - Symptoms have improved. Signatures: Dispatcher [employer] EDMS Kareem Atkinson MD MD rn Roszak, Josh, PA PA jr8 Chauncey Villarreal RN RN la1 Corrections: (The following items were deleted from the chart) 13:33 12:29 Urine Dipstick-Ancillary ordered. jr8 la1 14:46 14:35 04/19/2018 14:35 Discharged to Home. Impression: Orthostatic hypotension. la1 Condition is Stable. Forms are Medication Reconciliation Form, Thank You Letter, Antibiotic Education, Prescription Opioid Use. Follow up: Private Physician; When: 2 - 3 days; Reason: Recheck today's complaints, Continuance of care, Re-evaluation by your physician. Problem is new. Symptoms have improved. jr8
[2018-04-19 14:58] VITALS: TEMP 98.3; O2SAT 100
[2018-04-19 15:00] VITALS: BP 142/71
--- NOTE | 2018-04-19 16:39 | EKG ---
Test Date: 2018-04-19 Test Time: 12:40:06 Locker Plant Attendant: DOROTHY MEASUREMENT RESULTS: Intervals: Rate: 79 ME: 192 QRSD: 130 QT: 436 QTc: 499 [place]: P: 28 ME: 192 QRS: 48 T: 37 INTERPRETIVE STATEMENTS: Sinus rhythm with marked sinus arrhythmia Right bundle branch block Abnormal ECG Compared to ECG 02/05/2018 12:49:49 First degree AV block no longer present Myocardial infarct finding no longer present Electronically Signed On 04-19-18 16:38:33 CDT by Anselmo Caballero
== END 2018-04-19 14:46 | disposition home or self-care (01) ==
LOC: ER 12:24
DX: I95.1 Orthostatic hypotension (principal); Z88.5 Allergy status to narcotic agent; I10 Essential (primary) hypertension; E78.00 Pure hypercholesterolemia, unspecified; K21.9 Gastro-esophageal reflux disease without esophagitis; E11.9 Type 2 diabetes mellitus without complications; Z79.4 Long term (current) use of insulin; Z86.73 Personal history of transient ischemic attack (TIA), and cerebral infarction without residual deficits; R55 Syncope and collapse
CPT/HCPCS: 36415; 71045; 80048; 83735; 83880; 85025; 85610; 93005; 96360; 99284

== ENCOUNTER 2019-01-16 14:36 | Emergency (ER) | payer OTHER, MEDICARE ==
[2019-01-16 15:05] LABS: Protime INR 0.97
[2019-01-16 15:17] LABS: Absolute Lymphocytes (CBC) 2.1 K/uL (0.7-4.9); Absolute Monocytes 0.6 K/uL (0.1-1.3); Absolute Neutrophil 5.3 K/uL (1.8-8.0); Basophils % 0.2 % (0-1.3); Eosinophils % 1.2 % (0-4.4); Lymphocytes % 26.2 % (15.3-44.8); MPV 8.2 fL (7.6-11.3); Monocytes % 7.2 % (3.3-12.3); RBC Red Blood Cell Count 4.33 M/uL (3.86-4.86)
[2019-01-16 15:22] LABS: ALT/SGPT 16 U/L (12-78); AST/SGOT 14 U/L (15-37); Albumin 3.9 g/dL (3.4-5.0); Alkaline Phosphatase 91 U/L (45-117); BUN Blood Urea Nitrogen 21 mg/dL (7-18); Bicarbonate 25 mmol/L (21-32); Bilirubin Direct < 0.1 mg/dL (0-0.2); Bilirubin Total 0.2 mg/dL (0.2-1.0); Glucose Level 135 mg/dL (74-106); Magnesium 2.1 mg/dL (1.8-2.4); NT PRO-BNP 82 pg/mL (<450); Potassium 3.8 mmol/L (3.5-5.1); Protein, Total 7.6 g/dL (6.4-8.2); Sodium Level 135 mmol/L (136-145); Troponin (Emerg Dept Use Only) < 0.02 ng/mL (0.0-0.045)
--- NOTE | 2019-01-16 15:26 | RAD REPORT ---
EXAM DESCRIPTION: RAD - Chest Single View - 01/16/2019 3:00 pm CLINICAL HISTORY: Patient found unresponsive, history of CVA and hypertension COMPARISON: April 2018, July 2017 and May 2015 TECHNIQUE: AP portable chest image was obtained 1457 hours . FINDINGS: Lungs are clear of an acute process. Interstitial pattern is similar to most recent compar renetta. Heart size is upper normal. No acute vascular engorgement. 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 This is accentuated by slight rotation on the current exam ination. Tortuosity and/ or aneurysmal dilatation of the aorta is suspected but is not clearly differ ent. Patient has had no CT chest imaging for confirmation. The aortic finding and widened mediastinum date back to at least 2014 with no clear change. This would make it unlikely that the patient has a mediastinal mass or mediastinal lymphadenopathy. No measurable pleural effusion and no pneumothorax. No acute bony abnormality seen. IMPRESSION: No acute lung parenchymal process. 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 Aorta is likely dilated and tortuous accounting for the mediastinal enlargement. Patient has had no p rior CT chest imaging for confirmation.
--- NOTE | 2019-01-16 15:55 | EKG ---
Test Date: 2019-01-16 Test Time: 14:27:58 Auto Salvage Worker: REINA MEASUREMENT RESULTS: Intervals: Rate: 70 [place]: 204 QRSD: 142 QT: 482 QTc: 520 [place]: P: 4 [place]: 204 QRS: 42 T: 25 INTERPRETIVE STATEMENTS: Normal sinus rhythm Right bundle branch block Abnormal ECG Compared to ECG 04/19/2018 12:40:06 Sinus arrhythmia no longer present Electronically Signed On 01-16-19 15:54:39 CDT by Anselmo Caballero
--- NOTE | 2019-01-16 17:46 | EDPHYS ---
Physician Documentation [facility] Name: Skylar Grossman Age: 83 yrs Sex: Female : 1935 Arrival Date: 01/16/2019 Time: 14:32 Bed 8 Private MD: ED Physician Vick Rader HPI: 01/17 07:20 This 83 yrs old Female presents to ER via EMS with complaints of Syncope. kdr 07:20 The patient has experienced syncope, became unresponsive, lost consciousness. Onset: kdr The symptoms/episode began/occurred suddenly, just prior to arrival. Duration: This was a single episode, that lasted an unknown period of time, Brief - she had been unattended on the toilet for just a few minutes. Context: the episode(s) was witnessed, by family, sister. Associated injury: The patient did not suffer any apparent associated injury. Associated signs and symptoms: The patient has no apparent associated signs or symptoms. Current symptoms: Currently, the patient is not experiencing any symptoms. The patient has not experienced similar symptoms in the past. The patient has not recently seen a physician. The patient's sister had put her on the toilet to have a BM and left her for a few minutes. When she came back the patient was unresponsive but still on the toilet. Within a few minutes, she came back around. There was no apparent seizure activity. The patient had no c/o in the ED. Historical: - Allergies: 01/16 14:34 Codeine (Upset stomach); sv - Home Meds: 14:38 amitriptyline 100 mg Oral tab 1 tab nightly [Active]; Neurontin 300 mg Oral cap 1 cap 3 sv times per day [Active]; Prozac 20 mg Oral cap 1 cap once daily [Active]; lisinopril 40 mg Oral tab 1 tab once daily [Active]; Lantus 100 unit/mL Sub-Q soln 20 unit nightly [Active]; Prilosec 20 mg Oral cpDR 1 cap once daily [Active]; Flomax 0.4 mg Oral cp24 1 cap once daily [Active]; Bystolic 10 mg oral tab once daily [Active]; simvastatin 20 mg Oral tab 1 tab nightly [Active]; metformin 500 mg Oral tab 1 tab 2 times per day [Active]; Plavix 75 mg Oral tab 1 tab once daily [Active]; Protonix 40 mg Oral TbEC 1 tab once daily [Active]; melatonin 3 mg Oral tab nightly [Active]; - PMHx: 14:34 CVA; Depression; Diabetes - IDDM; GERD; High Cholesterol; Hypertension; sv - Immunization history:: Adult Immunizations up to date. - Social history:: Smoking status: Patient/guardian denies using tobacco, Patient/guardian denies using alcohol, street drugs. - Ebola Screening: : No symptoms or risks identified at this time. ROS: 01/17 07:20 Constitutional: Negative for fever, chills, and weight loss, Eyes: Negative for injury, kdr pain, redness, and discharge, ENT: Negative for injury, pain, and discharge, Neck: Negative for injury, pain, and swelling, Cardiovascular: Negative for chest pain, palpitations, and edema, Respiratory: Negative for shortness of breath, cough, wheezing, and pleuritic chest pain, Abdomen/GI: Negative for abdominal pain, nausea, vomiting, diarrhea, and constipation, Back: Negative for injury and pain, : Negative for injury, bleeding, discharge, and swelling, MS/Extremity: Negative for injury and deformity, Skin: Negative for injury, rash, and discoloration, Psych: Negative for depression, anxiety, suicide ideation, homicidal ideation, and hallucinations, Allergy/Immunology: Negative for hives, rash, and allergies, Endocrine: Negative for neck swelling, polydipsia, polyuria, polyphagia, and marked weight changes, Hematologic/Lymphatic: Negative for swollen nodes, abnormal bleeding, and unusual bruising. Neuro: Positive for loss of consciousness, syncope, The patient had not had a BM for a few days and did have a BM while on the toilet - may have passed out/vaso-vagal. Exam: 07:20 Constitutional: This is a well developed, well nourished patient who is awake, alert, kdr and in no acute distress. Head/Face: Normocephalic, atraumatic. Eyes: Pupils equal round and reactive to light, extra-ocular motions intact. Lids and lashes normal. Conjunctiva and sclera are non-icteric and not injected. Cornea within normal limits. Periorbital areas with no swelling, redness, or edema. Neck: Trachea midline, no thyromegaly or masses palpated, and no cervical lymphadenopathy. Supple, full range of motion without nuchal rigidity, or vertebral point tenderness. No Meningismus. Chest/axilla: Normal chest wall appearance and motion. Nontender with no deformity. No lesions are appreciated. Cardiovascular: Regular rate and rhythm with a normal S1 and S2. No gallops, murmurs, or rubs. Normal PMI, no JVD. No pulse deficits. Respiratory: Lungs have equal breath sounds bilaterally, clear to auscultation and percussion. No rales, rhonchi or wheezes noted. No increased work of breathing, no retractions or nasal flaring. Abdomen/GI: Soft, non-tender, with normal bowel sounds. No distension or tympany. No guarding or rebound. No evidence of tenderness throughout. Back: No spinal tenderness. No costovertebral tenderness. Full range of motion. Skin: Warm, dry with normal turgor. Normal color with no rashes, no lesions, and no evidence of cellulitis. MS/ Extremity: Pulses equal, no cyanosis. Neurovascular intact. Full, normal range of motion. Neuro: Awake and alert, GCS 15, oriented to person, place, time, and situation. Cranial nerves II-XII grossly intact. Motor strength 5/5 in all extremities. Sensory grossly intact. Cerebellar exam normal. Normal gait. Psych: Awake, alert, with orientation to person, place and time. Behavior, mood, and affect are within normal limits. Vital Signs: 01/16 14:40 BP 132 / 80; Pulse 70; Resp 18; Temp 97.5; Pulse Ox 95% on R/A; Pain 4/10; ch 16:21 BP 142 / 81; Pulse 79; Resp 18; Temp 98.5; Pulse Ox 99% on R/A; Pain 2/10; ch 17:28 BP 170 / 84; Pulse 70; Resp 16; Temp 97.8; Pulse Ox 98% on R/A; Pain 0/10; ch 17:28 PT STATES SHE WANTS TO TAKE HER HOME BP MEDICATIONS WHEN SHE GETS HOME. PT TO BE ch DISCHARGED. NIH Stroke Scale Scores: 14:36 NIHSS Score: 1 ch MDM: 17:45 Patient medically screened. kdr 01/17 07:20 Data reviewed: vital signs, nurses notes, lab test result(s), EKG, radiologic studies. kdr Counseling: I had a detailed discussion with the patient and/or guardian regarding: the historical points, exam findings, and any diagnostic results supporting the discharge/admit diagnosis, lab results, radiology results, the need for outpatient follow up. 01/16 14:39 Order name: CBC with Diff sv 01/16 14:39 Order name: LFT's sv 01/16 14:39 Order name: Magnesium sv 01/16 14:39 Order name: NT PRO-BNP sv 01/16 14:39 Order name: PT-INR sv 01/16 14:39 Order name: Troponin (emerg Dept Use Only) sv 01/16 14:39 Order name: Basic Metabolic Panel ch 01/16 14:39 Order name: CBC with Diff ch 01/16 14:39 Order name: LFT's ch 01/16 14:39 Order name: Magnesium ch 01/16 14:39 Order name: NT PRO-BNP ch 01/16 14:39 Order name: PT-INR ch 01/16 14:39 Order name: Magnesium kdr 01/16 14:39 Order name: NT PRO-BNP kdr 01/16 14:39 Order name: PT-INR kdr 01/16 14:39 Order name: Troponin (emerg Dept Use Only) kdr 01/16 14:41 Order name: Basic Metabolic Panel; Complete Time: 17:05 EDMS 01/16 14:41 Order name: CBC with Automated Diff; Complete Time: 17:05 EDMS 01/16 14:41 Order name: Liver (Hepatic) Function; Complete Time: 17:05 EDMS 01/16 14:41 Order name: Magnesium; Complete Time: 17:05 EDMS 01/16 14:41 Order name: NT PRO-BNP; Complete Time: 17:05 EDMS 01/16 14:41 Order name: Protime (+INR); Complete Time: 17:05 EDMS 01/16 14:41 Order name: Troponin (Emerg Dept Use Only); Complete Time: 17:05 EDMS 01/16 14:39 Order name: EKG; Complete Time: 14:41 sv 01/16 14:39 Order name: XRAY Chest (1 view); Complete Time: 17:05 ch 01/16 14:39 Order name: Cardiac monitoring; Complete Time: 14:47 ch 01/16 14:39 Order name: EKG - Nurse/Tech; Complete Time: 14:47 01/16 14:39 Order name: IV Saline Lock; Complete Time: 14:47 01/16 14:39 Order name: Labs collected and sent; Complete Time: 14:47 01/16 14:39 Order name: O2 Per Protocol; Complete Time: 14:47 01/16 14:39 Order name: O2 Sat Monitoring; Complete Time: 14:47 01/16 14:39 Order name: Cardiac monitoring; Complete Time: 14:47 [facility] 01/16 14:39 Order name: EKG - Nurse/Tech; Complete Time: 14:47 [facility] 01/16 14:39 Order name: IV Saline Lock; Complete Time: 14:47 [facility] 01/16 14:39 Order name: Labs collected and sent; Complete Time: 14:47 [facility] 01/16 14:39 Order name: O2 Per Protocol; Complete Time: 14:47 [facility] 01/16 14:39 Order name: O2 Sat Monitoring; Complete Time: 14:47 [facility] 01/16 14:48 Order name: Glucose, Ancillary Testing; Complete Time: 17:05 EDMS Administered Medications: 01/16 17:30 Not Given (Patient Refused): cloNIDine 0.1 mg PO once ch Point of Care Testing: Blood Glucose: 14:48 Blood Glucose: 160 mg/dL; sv Ranges: Critical Glucose Levels:Adult <50 mg/dl or >400 mg/dl <40 mg/dl or >180 mg/dl Disposition: 01/16/19 17:45 Discharged to Home. Impression: Vasovagal syncope. - Condition is Stable. - Discharge Instructions: Syncope, [id number], Vasovagal Syncope, Adult. - Medication Reconciliation Form, Thank You Letter form. - Follow up: Private Physician; When: 2 - 3 days; Reason: If symptoms return, Further diagnostic work-up, Recheck today's complaints, Continuance of care, Re-evaluation by your physician. - Problem is new. - Symptoms are resolved. NIH Stroke Scale - NIH Stroke Score Date: 01/16/2019 Time: 14:36 Total Score = 1 1a. Level of Consciousness (LOC) - 0(Alert) 1b. Level of Consciousness (LOC) (Year \T\ Age) - 1(One) 1c. LOC Commands (Open \T\ Closes Eyes/Laborer [place]) - 0(Both) 2. Best Gaze (Lateral Gaze Paresis) - 0(Normal) 3. Visual Field Loss - 0(No visual loss) 4. Facial Palsy - 0(Normal) 5a. Left Arm: Motor (10-second hold) - 0(No drift) 5b. Right Arm: Motor (10-second hold) - 0(No drift) 6a. Left Leg: Motor (5-second hold - always test supine) - 0(No drift) 6b. Right Leg: Motor (5-second hold - always test supine) - 0(No drift) 7. Limb Ataxia (finger/nose \T\ heel/eldridge - test with eyes open) - 0(Absent) 8. Sensory Loss (pinprick arms/legs/face) - 0(Normal) 9. Best Language: Aphasia (description/naming/reading) - 0(No aphasia) 10. Dysarthria (speech clarity - read or repeat words) - 0(Normal) 11. Extinction and Inattention (visual/tactile/auditory/spatial/personal) - 0(No abnormality) Initials: Signatures: Dispatcher [employer] EDMS Sneha Barrett RN RN ch Verde, Stephanie, RN RN Vick Rader MD MD [facility] Astrid Ryan RN RN ss Corrections: (The following items were deleted from the chart) 14:42 14:41 Basic Metabolic Panel ordered. EDMS EDMS 14:42 14:41 CBC with Automated Diff ordered. EDMS EDMS 14:42 14:41 Liver (Hepatic) Function ordered. EDMS EDMS 14:42 14:41 Magnesium ordered. EDMS EDMS 14:43 14:41 TROPONIN (EMERG DEPT USE ONLY)+C.LAB.BRZ ordered. EDMS EDMS 14:43 14:42 BASIC METABOLIC PANEL+C.LAB.BRZ ordered. EDMS EDMS 14:43 14:42 CBC+H.LAB.BRZ ordered. EDMS EDMS 14:43 14:42 HEPATIC FUNCTION+C.LAB.BRZ ordered. EDMS EDMS 14:45 14:41 Chest Single View+RAD.RAD.BRZ ordered. EDMS EDMS 14:45 14:42 Chest Single View+RAD.RAD.BRZ ordered. EDMS EDMS 14:53 14:39 Cardiac monitoring ordered. sv sv 14:54 14:39 EKG - Nurse/Tech ordered. sv sv 14:54 14:39 IV Saline Lock ordered. sv sv 14:55 14:39 Labs collected and sent ordered. sv sv 14:55 14:39 Oxygen Per Protocol ordered. sv sv 14:55 14:39 O2 Sat Monitoring ordered. sv sv 17:57 17:45 01/16/2019 17:45 Discharged to Home. Impression: Vasovagal syncope. ss Condition is Stable. Discharge Instructions: Syncope, [id number], Vasovagal Syncope, Adult. Forms are Medication Reconciliation Form, Thank You Letter, Antibiotic Education, Prescription Opioid Use. Follow up: Private Physician; When: 2 - 3 days; Reason: If symptoms return, Further diagnostic work-up, Recheck today's complaints, Continuance of care, Re-evaluation by your physician. Problem is new. Symptoms are resolved. kdr
--- NOTE | 2019-01-16 17:46 | ER ---
Nurse's Notes [facility] Name: Skylar Grossman Age: 83 yrs Sex: Female : 1935 Arrival Date: 01/16/2019 Time: 14:32 Bed 8 Private MD: Diagnosis: Vasovagal syncope Presentation: 01/16 14:40 Presenting complaint: EMS states: pt was found by her sister at home on the toilet, ch stool in toilet, unresponsive, approx 1400. when ems arrived, pt bp was 90/34, pt was oriented to person only and lethargic. pt moved ot bed, placed in Trendelenburg, bp raised to 130's systole and pt became more oriented. bgl at home was 184. IV started to R hand, pt given 4 of xofran for nausea. pt stool did not appear black or bloody. Transition of care: patient was not received from another setting of care. Onset of symptoms was January 16, 2019 at 14:00. Risk Assessment: Do you want to hurt yourself or someone else? Patient reports no desire to harm self or others. Initial Sepsis Screen: Does the patient meet any 2 criteria? No. Patient's initial sepsis screen is negative. Does the patient have a suspected source of infection? No. Patient's initial sepsis screen is negative. Care prior to arrival: None. 14:40 Method Of Arrival: EMS: [facility] 14:40 Acuity: FARIDA 3 ch Triage Assessment: 14:40 General: Appears in no apparent distress. Behavior is calm, cooperative, appropriate for age, drowsy. Historical: - Allergies: 14:34 Codeine (Upset stomach); sv - Home Meds: 14:38 amitriptyline 100 mg Oral tab 1 tab nightly [Active]; Neurontin 300 mg Oral cap 1 cap 3 sv times per day [Active]; Prozac 20 mg Oral cap 1 cap once daily [Active]; lisinopril 40 mg Oral tab 1 tab once daily [Active]; Lantus 100 unit/mL Sub-Q soln 20 unit nightly [Active]; Prilosec 20 mg Oral cpDR 1 cap once daily [Active]; Flomax 0.4 mg Oral cp24 1 cap once daily [Active]; Bystolic 10 mg oral tab once daily [Active]; simvastatin 20 mg Oral tab 1 tab nightly [Active]; metformin 500 mg Oral tab 1 tab 2 times per day [Active]; Plavix 75 mg Oral tab 1 tab once daily [Active]; Protonix 40 mg Oral TbEC 1 tab once daily [Active]; melatonin 3 mg Oral tab nightly [Active]; - PMHx: 14:34 CVA; Depression; Diabetes - IDDM; GERD; High Cholesterol; Hypertension; sv - Immunization history:: Adult Immunizations up to date. - Social history:: Smoking status: Patient/guardian denies using tobacco, Patient/guardian denies using alcohol, street drugs. - Ebola Screening: : No symptoms or risks identified at this time. Screenin:36 Abuse screen: Denies threats or abuse. Denies injuries from another. Nutritional ch screening: No deficits noted. Tuberculosis screening: No symptoms or risk factors identified. Fall Risk Fall in past 12 months (25 points). Secondary diagnosis (15 points) IV access (20 points). Ambulatory Aid- None/Bed Rest/Nurse Assist (0 pts). Gait- Weak (10 pts.). Mental Status- Oriented to own ability (0 pts). Assessment: 14:37 General: Appears in no apparent distress. comfortable. Pain: Complains of pain in top ch of head, forehead, left frontal area, left side of the back of head, right frontal area and right side of the back of head Pain currently is 4 out of 10 on a pain scale. Neuro: Level of Consciousness is awake, alert, obeys commands, Oriented to person, place, time, situation, Dredgemaster are equal bilaterally Moves all extremities. Speech is normal, Facial symmetry appears normal, Facial symmetry: tongue is midline, Reports headache. Respiratory: Airway is patent Respiratory effort is even, unlabored, Breath sounds are clear bilaterally. GI: No signs and/or symptoms were reported involving the gastrointestinal system. Abdomen is round non-distended. : No signs and/or symptoms were reported regarding the genitourinary system. Derm: Skin is pale. Musculoskeletal: Circulation, motion, and sensation intact. 15:55 Reassessment: Patient appears in no apparent distress at this time. No changes from previously documented assessment. Patient and/or family updated on plan of care and expected duration. Pain level reassessed. pt has large bm, cleaned, sheets changed, tolerated well. pt denies GOLDBERG or pain. 16:21 Reassessment: Patient appears in no apparent distress at this time. No changes from previously documented assessment. Patient and/or family updated on plan of care and expected duration. Pain level reassessed. Patient is alert, oriented x 3, equal unlabored respirations, skin warm/dry/pink. pt placed on bedpan, pt has another bowel movement. 17:19 Reassessment: Patient appears in no apparent distress at this time. No changes from previously documented assessment. Patient and/or family updated on plan of care and expected duration. Pain level reassessed. Patient is alert, oriented x 3, equal unlabored respirations, skin warm/dry/pink. Reassessment: DR PARRA IN ROOM DISCUSSING RESULTS AND PLAN OF CARE WITH PT. General: Appears in no apparent distress. comfortable, Behavior is calm, cooperative, appropriate for age. Pain: Denies pain. Neuro: Level of Consciousness is awake, alert, obeys commands. Vital Signs: 14:40 BP 132 / 80; Pulse 70; Resp 18; Temp 97.5; Pulse Ox 95% on R/A; Pain 4/10; ch 16:21 BP 142 / 81; Pulse 79; Resp 18; Temp 98.5; Pulse Ox 99% on R/A; Pain 2/10; ch 17:28 BP 170 / 84; Pulse 70; Resp 16; Temp 97.8; Pulse Ox 98% on R/A; Pain 0/10; ch 17:28 PT STATES SHE WANTS TO TAKE HER HOME BP MEDICATIONS WHEN SHE GETS HOME. PT TO BE DISCHARGED. NIH Stroke Scale Scores: 14:36 NIHSS Score: 1 ED Course: 14:27 EKG done, by mechanical assembly technician. reviewed by Vick Parra MD. at1 14:32 Patient arrived in ED. sv 14:36 Sneha Barrett, RN is Primary Nurse. ch 14:37 No provider procedures requiring assistance completed. Maintain EMS IV. Dressing ch intact. Good blood return noted. Site clean \T\ dry. Gauge \T\ site: 20G R hand. 14:37 Patient has correct armband on for positive identification. Placed in gown. Bed in low ch position. Call light in reach. Side rails up X2. Adult w/ patient. surveillance system monitor on. Pulse ox on. NIBP on. Warm blanket given. 14:38 Vick Parra MD is Attending Physician. kdr 14:40 Arm band placed on left wrist. Patient placed in an exam room, on a stretcher, on pulse ch oximetry. 14:42 Triage completed. ch 14:56 Basic Metabolic Panel Sent. sv 14:56 CBC with Diff Sent. sv 14:56 LFT's Sent. sv 14:56 Magnesium Sent. sv 14:56 NT PRO-BNP Sent. sv 14:56 PT-INR Sent. sv 14:57 CBC with Diff Sent. sv 14:57 LFT's Sent. sv 14:57 Magnesium Sent. sv 14:57 NT PRO-BNP Sent. sv 14:58 PT-INR Sent. sv 14:58 Troponin (emerg Dept Use Only) Sent. sv 14:59 XRAY Chest (1 view) In Process Unspecified. EDMS 16:06 Magnesium Sent. sv 16:06 NT PRO-BNP Sent. sv 16:06 PT-INR Sent. sv 16:06 Troponin (emerg Dept Use Only) Sent. sv 17:28 No apparent distress. Resting quietly. ch 17:28 IV discontinued, intact, bleeding controlled, No redness/swelling at site. Pressure ch dressing applied. Administered Medications: 17:30 Not Given (Patient Refused): cloNIDine 0.1 mg PO once Point of Care Testing: Blood Glucose: 14:48 Blood Glucose: 160 mg/dL; sv Ranges: Outcome: 17:28 Discharged to home via wheelchair, with family. ch 17:28 Condition: stable 17:28 Discharge instructions given to patient, family, Instructed on discharge instructions, follow up and referral plans. Demonstrated understanding of instructions, follow-up care. 17:45 Discharge ordered by . kdr 17:57 Patient left the ED. NIH Stroke Scale - NIH Stroke Score Date: 01/16/2019 Time: 14:36 Total Score = 1 1a. Level of Consciousness (LOC) - 0(Alert) 1b. Level of Consciousness (LOC) (Year \T\ Age) - 1(One) 1c. LOC Commands (Open \T\ Closes Eyes/Septic Tank Setter) - 0(Both) 2. Best Gaze (Lateral Gaze Paresis) - 0(Normal) 3. Visual Field Loss - 0(No visual loss) 4. Facial Palsy - 0(Normal) 5a. Left Arm: Motor (10-second hold) - 0(No drift) 5b. Right Arm: Motor (10-second hold) - 0(No drift) 6a. Left Leg: Motor (5-second hold - always test supine) - 0(No drift) 6b. Right Leg: Motor (5-second hold - always test supine) - 0(No drift) 7. Limb Ataxia (finger/nose \T\ heel/eldridge - test with eyes open) - 0(Absent) 8. Sensory Loss (pinprick arms/legs/face) - 0(Normal) 9. Best Language: Aphasia (description/naming/reading) - 0(No aphasia) 10. Dysarthria (speech clarity - read or repeat words) - 0(Normal) 11. Extinction and Inattention (visual/tactile/auditory/spatial/personal) - 0(No abnormality) Initials: Signatures: Dispatcher [employer] Sneha Boggs RN Rita Weaver ch, RN RN sv Rittger, Kevin, MD MD kdr Smirch, Shelby, RN RN Bianca Ellis, parks and recreation worker EKG Tat1
[2019-01-16 18:14] VITALS: BP 170/84; TEMP 97.8; O2SAT 98
== END 2019-01-16 17:57 | disposition home or self-care (01) ==
LOC: ER 14:36
DX: R55 Syncope and collapse (principal); I10 Essential (primary) hypertension; F32.9 Major depressive disorder, single episode, unspecified; E11.9 Type 2 diabetes mellitus without complications; E78.00 Pure hypercholesterolemia, unspecified; Z79.4 Long term (current) use of insulin; Z79.01 Long term (current) use of anticoagulants; Z88.5 Allergy status to narcotic agent; Z86.73 Personal history of transient ischemic attack (TIA), and cerebral infarction without residual deficits
CPT/HCPCS: 36415; 71045; 80048; 80076; 82962; 83735; 83880; 84484; 85025; 85610; 93005; 99284

== ENCOUNTER 2019-01-28 01:37 | Inpatient (IN) | payer OTHER, MEDICARE ==
[2019-01-28 02:05] LABS: Absolute Lymphocytes (CBC) 3.1 K/uL (0.7-4.9); Absolute Monocytes 1.5 K/uL (0.1-1.3); Absolute Neutrophil 15.8 K/uL (1.8-8.0); Basophils % 0.2 % (0-1.3); Eosinophils % 0.1 % (0-4.4); Hematocrit 32.7 % (36.0-45.0); Lymphocytes % 15.3 % (15.3-44.8); MPV 8.1 fL (7.6-11.3); Monocytes % 7.5 % (3.3-12.3); RBC Red Blood Cell Count 4.18 M/uL (3.86-4.86)
[2019-01-28 02:08] LABS: Protime INR 1.11
[2019-01-28 02:23] LABS: ALT/SGPT 13 U/L (12-78); AST/SGOT 9 U/L (15-37); Albumin 2.9 g/dL (3.4-5.0); Alkaline Phosphatase 68 U/L (45-117); BUN Blood Urea Nitrogen 29 mg/dL (7-18); Bicarbonate 26 mmol/L (21-32); Bilirubin Direct 0.1 mg/dL (0-0.2); Bilirubin Total 0.3 mg/dL (0.2-1.0); CKMB Creatine Kinase MB 1.9 ng/mL (0.3-3.6); Creatine Phosphokinase 41 U/L (26-192); Glucose Level 153 mg/dL (74-106); Lipase 65 U/L (73-393); Potassium 4.1 mmol/L (3.5-5.1); Sodium Level 135 mmol/L (136-145); Troponin (Emerg Dept Use Only) < 0.02 ng/mL (0.0-0.045)
[2019-01-28] MEDS ORDERED: NA CHLORIDE 0.9% 500 ML ONE (02:26)
[2019-01-28] MEDS ORDERED: NA CHLORIDE 0.9% 1,000 ML ONE (02:26)
[2019-01-28 02:46] LABS: Urine Bacteria <20 /HPF (<20); Urine Culture Reflex Order NOT NEEDED; Urine RBC NONE SEEN /HPF (NONE SEEN)
[2019-01-28] MEDS ORDERED: VANCOMYCIN 1 GM/VIAL ONE (02:56)
[2019-01-28] MEDS ORDERED: NA CHLORIDE 0.9% 250 ML ONE (02:56)
[2019-01-28] MEDS ORDERED: PIPER/TAZO/NS 3.375gm 3.375 GM/100 ML BAG ONE (02:56)
[2019-01-28 03:15] LABS: Blood Morphology Comment NOT SEEN (NOT SEEN); Platelet Estimate ADEQ
--- NOTE | 2019-01-28 03:28 | ER ---
Nurse's Notes [facility] Name: Skylar Grossman Age: 83 yrs Sex: Female : 1935 Arrival Date: 01/28/2019 Time: 01:38 Bed 3 Private MD: Edwardo Angel V Diagnosis: Other specified sepsis;Altered mental status, unspecified Presentation: 01/28 01:44 Presenting complaint: EMS states: pt sister stated pt was talking to the TV then became ak1 lethargic. 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 pt hypotensive prior to arrival. Transition of care: patient was not received from another setting of care. Onset of symptoms was January 28, 2019. Risk Assessment: Do you want to hurt yourself or someone else? Patient reports no desire to harm self or others. Initial Sepsis Screen: Does the patient meet any 2 criteria? Systolic BP < 90 mmHg. Altered Mental Status. Yes Does the patient have a suspected source of infection? Yes: Dysuria/Frequency/Urgency/UTI. Care prior to arrival: 500mL NS via 20g right AC. 01:44 Method Of Arrival: EMS: [facility] ak1 01:44 Acuity: FARIDA 1 ak1 01:52 Note EMS reported FSBG 127. ak1 Triage Assessment: 01:51 General: Appears in no apparent distress. Behavior is drowsy. Pain: Unable to use pain ak1 scale. Does not appear to understand pain scale. EENT: No signs and/or symptoms were reported regarding the EENT system. Neuro: Level of Consciousness is awake, confused, lethargic, Oriented to person, Speech is normal. Cardiovascular: No deficits noted. Respiratory: No deficits noted. GI: No signs and/or symptoms were reported involving the gastrointestinal system. : No signs and/or symptoms were reported regarding the genitourinary system. Derm: No signs and/or symptoms reported regarding the dermatologic system. Musculoskeletal: No signs and/or symptoms reported regarding the musculoskeletal system. Historical: - Allergies: 01:51 Codeine (Upset stomach); ak1 01:51 Morphine; ak1 - Home Meds: 01:51 amitriptyline 100 mg Oral tab 1 tab nightly [Active]; Neurontin 300 mg Oral cap 1 cap 3 ak1 times per day [Active]; Plavix 75 mg Oral tab 1 tab once daily [Active]; lisinopril 40 mg Oral tab 1 tab once daily [Active]; Lantus 100 unit/mL Sub-Q soln 20 unit nightly [Active]; Prilosec 20 mg Oral cpDR 1 cap once daily [Active]; Flomax 0.4 mg Oral cp24 1 cap once daily [Active]; Bystolic 10 mg Oral tab once daily [Active]; simvastatin 20 mg Oral tab 1 tab nightly [Active]; metformin 500 mg Oral tab 1 tab 2 times per day [Active]; melatonin 3 mg Oral tab nightly [Active]; Protonix 40 mg Oral TbEC 1 tab once daily [Active]; Humalog Sub-Q [Active]; - PMHx: 01:51 CVA; Depression; GERD; Diabetes - IDDM; High Cholesterol; Hypertension; ak1 - Immunization history:: Adult Immunizations unknown. - Social history:: Smoking status: unknown. - Ebola Screening: : No symptoms or risks identified at this time. Screenin:53 Abuse screen: Denies threats or abuse. Denies injuries from another. Nutritional ak1 screening: No deficits noted. Tuberculosis screening: No symptoms or risk factors identified. Fall Risk Mental Status-. Assessment: 01:40 General: Appears in no apparent distress. comfortable, Behavior is drowsy. rr5 01:40 Neuro: Level of Consciousness is obeys commands, Oriented to person, patient is drowsy rr5 able to respond to voice command.. Cardiovascular: Capillary refill < 3 seconds Patient's skin is warm and dry. Respiratory: Airway is patent Respiratory effort is even, unlabored, Respiratory pattern is regular, symmetrical. GI: No signs and/or symptoms were reported involving the gastrointestinal system. : No signs and/or symptoms were reported regarding the genitourinary system. EENT: No signs and/or symptoms were reported regarding the EENT system. Derm: Skin is intact, Skin temperature is warm. Musculoskeletal: Circulation, motion, and sensation intact. Capillary refill < 3 seconds. 01:40 Pain: Denies pain. rr5 02:30 Reassessment: Patient appears in no apparent distress at this time. No changes from rr5 previously documented assessment. no complaints made. awaiting for results. 03:10 Reassessment: Patient appears in no apparent distress at this time. Patient is alert, rr5 oriented x 3, equal unlabored respirations, skin warm/dry/pink. patient talking coherently able to answer all the questions to her correctly. reassess by ED provider patient and provider agreed for the acre plan of putting the patient for admission. 03:12 Reassessment: ED provider ordered to discontinue the NS bolus. total infused NS is 2000 rr5 ml. 04:15 Reassessment: Patient appears in no apparent distress at this time. asleep on bed rr5 comfortably. no complaints made, vitally stable. Patient states symptoms have improved. 05:00 Reassessment: Patient appears in no apparent distress at this time. No changes from rr5 previously documented assessment. back from CT scan. 05:30 Reassessment: Patient appears in no apparent distress at this time. admitted under dr. jesus manuel angel. patient will transfer to room 202 after 0600 H. Vital Signs: 01:39 BP 91 / 58; Pulse 78; Resp 14; Temp 99.8; Pulse Ox 96% on R/A; Weight 81.65 kg (R); ak1 Height 5 ft. 5 in. (165.10 cm) (R); Pain 0/10; 02:20 BP 101 / 89; Pulse 67; Resp 15; Pulse Ox 99% on R/A; rr5 03:10 BP 126 / 84; Pulse 71; Resp 16; Pulse Ox 99% on R/A; Pain 0/10; rr5 03:45 BP 107 / 55; Pulse 65; Resp 18; Temp 98.2; Pulse Ox 100% on R/A; rr5 04:30 BP 103 / 62; Pulse 69; Resp 16; Pulse Ox 99% on R/A; rr5 05:10 BP 112 / 64; Pulse 62; Resp 15; Temp 97.8; Pulse Ox 99% on R/A; rr5 06:00 BP 119 / 60; Pulse 67; Resp 16; Temp 97.6; Pulse Ox 99% on R/A; rr5 01:39 Body Mass Index 29.95 (81.65 kg, 165.10 cm) ak1 [place] Coma Score: 01:40 Eye Response: to voice(3). Verbal Response: oriented(5). Motor Response: obeys rr5 commands(6). Total: 14. 03:00 Eye Response: to voice(3). Verbal Response: oriented(5). Motor Response: obeys rr5 commands(6). Total: 14. 05:00 Eye Response: to voice(3). Verbal Response: oriented(5). Motor Response: obeys rr5 commands(6). Total: 14. ED Course: 01:38 Patient arrived in ED. am2 01:38 Edwardo Angel MD is Private Physician. am2 01:39 Maurisio Hall MD is Attending Physician. tw4 01:39 Arm band placed on Patient placed in an exam room, on a stretcher, on child monitor, ak1 on pulse oximetry, Patient notified of wait time. 01:45 Initial lab(s) drawn, by me, sent to lab. First set of blood cultures drawn. Inserted bb saline lock: 20 gauge in left antecubital area, using aseptic technique. Blood collected. 01:47 Triage completed. ak1 01:53 Patient has correct armband on for positive identification. Placed in gown. Bed in low ak1 position. Call light in reach. Side rails up X2. Adult w/ patient. personnel monitor on. Pulse ox on. NIBP on. 01:53 Maintain EMS IV. Dressing intact. Site clean \T\ dry. Gauge \T\ site: 20g right AC. Patient ak 1 maintains SpO2 saturation greater than 95% on room air. 01:55 Second set of blood cultures drawn by ED staff. bb 02:01 X-ray completed. Portable x-ray completed in exam room. Patient tolerated procedure kw well. 02:02 Chest Single View XRAY In Process Unspecified. EDMS 02:19 EKG done, by ED staff, reviewed by Maurisio Hall MD. rr5 02:22 David Lynch, RN is Primary Nurse. rr5 02:25 Straight cath inserted, using sterile technique, 16 Fr. Specimen obtained. Returned ak1 clear yellow urine. Patient tolerated well. 02:28 Blood Culture Adult (2) Sent. ak1 02:28 Basic Metabolic Panel Sent. ak1 02:29 Notified ED physician of a critical lab result(s). WBCs of 20.5, Lactate 2.7. Dr Isabel altamirano notified. 02:29 CT Head Brain wo Cont Sent. ak1 02:50 CT Head Brain wo Cont In Process Unspecified. EDMS 03:22 Edwardo Angel MD is Hospitalizing Provider. tw4 03:50 Repeat lab(s) drawn. by me, sent to lab. rr5 05:13 Chest Abdomen Pelvis W Cont In Process Unspecified. EDMS 05:38 No provider procedures requiring assistance completed. Patient admitted, IV remains in rr5 place. intact. Administered Medications: 01:32 Drug: NS 0.9% (30 ml/kg) 30 ml/kg {Note: 1L NS started MACHINE SPREADER via EMS.} Route: IV; Rate: ak1 bolus; Site: right antecubital; 02:00 Drug: NS 0.9% (30 ml/kg) 30 ml/kg {Note: 1450 ml of NS started as per sepsis protocol.} rr5 Route: IV; Rate: bolus; Site: left antecubital; 02:29 Follow up: IV Status: Completed infusion; IV Intake: 1000ml ak1 03:12 Follow up: Response: No adverse reaction; IV Status: Order to discontinue infusion; IV rr5 Intake: 1000ml 02:47 Drug: Zosyn 3.375 grams Route: IVPB; Infused Over: 60 mins; Site: left antecubital; rr5 03:40 Follow up: Response: No adverse reaction; IV Status: Completed infusion; IV Intake: rr5 100ml 03:05 Dru grams of (vancoMYCIN 1 grams, NS 0.9% 250 ml) Route: IVPB; Infused Over: 2 hrs; rr5 Site: right upper arm; 05:10 Follow up: Response: No adverse reaction; IV Status: Completed infusion; IV Intake: rr5 250ml Point of Care Testing: Blood Glucose: 01:51 Blood Glucose: 185 mg/dL; ak1 Ranges: Intake: 02:29 IV: 1000ml; Total: 1000ml. ak1 03:12 IV: 1000ml; Total: 2000ml. rr5 03:40 IV: 100ml; Total: 2100ml. rr5 05:10 IV: 250ml; Total: 2350ml. rr5 Output: 02:18 Urine: 800ml (Straight Cath); Total: 800ml. ak1 Outcome: 03:23 Decision to Hospitalize by Provider. tw4 05:51 Admitted to Med/surg accompanied by nurse, via stretcher, room 202, with chart, Report rr5 called to mikayla 05:51 Condition: stable 05:51 Instructed on the need for admit. 06:24 Patient left the ED. rr5 Signatures: Dispatcher [employer] EDNaomi Allen RN RN Christina Crystal Amber, RN RN ak1 Bianca Wan Terrence, MD MD tw4 David Lynch RN RN rr5 Corrections: (The following items were deleted from the chart) 02:43 01:40 Pain: rr5 rr5 05:30 03:12 Response: No adverse reaction; IV Status: Order to discontinue infusion; IV rr5 Intake: 2000ml rr5 05:31 05:29 Response: No adverse reaction; IV Status: Order to discontinue infusion; IV rr5 Intake: 1000ml rr5
--- NOTE | 2019-01-28 03:29 | EDPHYS ---
Physician Documentation [facility] Name: Skylar Grossman Age: 83 yrs Sex: Female : 1935 Arrival Date: 01/28/2019 Time: 01:38 Bed 3 Private MD: Edwardo Angel V ED Physician Maurisio Hall HPI: 01/28 04:01 This 83 yrs old Female presents to ER via EMS with complaints of Altered tw4 Mental Status. 04:01 The patient presents with decreased mental status, decreased responsiveness. Onset: The tw4 symptoms/episode began/occurred today. Associated signs and symptoms: The patient has no apparent associated signs or symptoms. Current symptoms: In the emergency department the patient's symptoms are unchanged from the initial presentation. The patient has not experienced similar symptoms in the past. Historical: - Allergies: 01:51 Codeine (Upset stomach); ak1 01:51 Morphine; ak1 - Home Meds: 01:51 amitriptyline 100 mg Oral tab 1 tab nightly [Active]; Neurontin 300 mg Oral cap 1 cap 3 ak1 times per day [Active]; Plavix 75 mg Oral tab 1 tab once daily [Active]; lisinopril 40 mg Oral tab 1 tab once daily [Active]; Lantus 100 unit/mL Sub-Q soln 20 unit nightly [Active]; Prilosec 20 mg Oral cpDR 1 cap once daily [Active]; Flomax 0.4 mg Oral cp24 1 cap once daily [Active]; Bystolic 10 mg Oral tab once daily [Active]; simvastatin 20 mg Oral tab 1 tab nightly [Active]; metformin 500 mg Oral tab 1 tab 2 times per day [Active]; melatonin 3 mg Oral tab nightly [Active]; Protonix 40 mg Oral TbEC 1 tab once daily [Active]; Humalog Sub-Q [Active]; - PMHx: 01:51 CVA; Depression; GERD; Diabetes - IDDM; High Cholesterol; Hypertension; ak1 - Immunization history:: Adult Immunizations unknown. - Social history:: Smoking status: unknown. - Ebola Screening: : No symptoms or risks identified at this time. ROS: 04:01 Constitutional: Negative for fever, chills, and weight loss, Eyes: Negative for injury, tw4 pain, redness, and discharge, Cardiovascular: Negative for chest pain, palpitations, and edema, Respiratory: Negative for shortness of breath, cough, wheezing, and pleuritic chest pain, Abdomen/GI: Negative for abdominal pain, nausea, vomiting, diarrhea, and constipation, MS/Extremity: Negative for injury and deformity. 04:01 Neuro: Positive for altered mental status. Exam: 04:01 Head/Face: Normocephalic, atraumatic. Eyes: Pupils equal round and reactive to light, tw4 extra-ocular motions intact. Lids and lashes normal. Conjunctiva and sclera are non-icteric and not injected. Cornea within normal limits. Periorbital areas with no swelling, redness, or edema. Cardiovascular: Regular rate and rhythm with a normal S1 and S2. No gallops, murmurs, or rubs. Normal PMI, no JVD. No pulse deficits. Respiratory: Lungs have equal breath sounds bilaterally, clear to auscultation and percussion. No rales, rhonchi or wheezes noted. No increased work of breathing, no retractions or nasal flaring. Abdomen/GI: Soft, non-tender, with normal bowel sounds. No distension or tympany. No guarding or rebound. No evidence of tenderness throughout. Back: No spinal tenderness. No costovertebral tenderness. Full range of motion. MS/ Extremity: Pulses equal, no cyanosis. Neurovascular intact. Full, normal range of motion. 04:01 Constitutional: The patient appears somnolent 04:01 Neuro: Orientation: to place, time, Mentation: slow to respond, sleepy, somnolent, Cranial nerves: CN II- XII are normal as tested, Motor: moves all fours. Vital Signs: 01:39 BP 91 / 58; Pulse 78; Resp 14; Temp 99.8; Pulse Ox 96% on R/A; Weight 81.65 kg (R); ak1 Height 5 ft. 5 in. (165.10 cm) (R); Pain 0/10; 02:20 BP 101 / 89; Pulse 67; Resp 15; Pulse Ox 99% on R/A; rr5 03:10 BP 126 / 84; Pulse 71; Resp 16; Pulse Ox 99% on R/A; Pain 0/10; rr5 03:45 BP 107 / 55; Pulse 65; Resp 18; Temp 98.2; Pulse Ox 100% on R/A; rr5 04:30 BP 103 / 62; Pulse 69; Resp 16; Pulse Ox 99% on R/A; rr5 05:10 BP 112 / 64; Pulse 62; Resp 15; Temp 97.8; Pulse Ox 99% on R/A; rr5 06:00 BP 119 / 60; Pulse 67; Resp 16; Temp 97.6; Pulse Ox 99% on R/A; rr5 01:39 Body Mass Index 29.95 (81.65 kg, 165.10 cm) ak1 [place] Coma Score: 01:40 Eye Response: to voice(3). Verbal Response: oriented(5). Motor Response: obeys rr5 commands(6). Total: 14. 03:00 Eye Response: to voice(3). Verbal Response: oriented(5). Motor Response: obeys rr5 commands(6). Total: 14. 05:00 Eye Response: to voice(3). Verbal Response: oriented(5). Motor Response: obeys rr5 commands(6). Total: 14. MDM: 01:39 Patient medically screened. tw4 04:01 Differential Diagnosis: electrolyte abnormality, hypoglycemia, intracranial bleed, tw4 sepsis, UTI, volume depletion. Data reviewed: vital signs, nurses notes. Data interpreted: Pulse oximetry: Interpretation: normal. Test interpretation: by ED physician or midlevel provider: ECG. Sepsis 6 hour Focused Exam: Focused assessment performed: January 28, 2019 at 01:42 Heart: Regular rate/rhythm. Irregular rhythm. S1,S2 auscultated. Lungs: noted to be clear bilaterally. Capillary refill examination performed. Capillary refill noted to be < 2 seconds. Peripheral pulse evaluation performed. Radial Peripheral pulses noted to be 2+ slightly diminished. Skin examination performed. Skin noted to be pale. Current patient vital signs reviewed: Yes. Neuro: Patient's neurological exam has improved from previous exam. Cardio: pt BP improved after IVF bolus Respiratory: Respiratory exam improved from previous exam. Counseling: I had a detailed discussion with the patient and/or guardian regarding: the historical points, exam findings, and any diagnostic results supporting the discharge/admit diagnosis, lab results, radiology results. Physician consultation: Edwardo Angel MD was contacted at 04:00, regarding admission, to the telemetry unit. patient's condition, need to evaluate the patient as soon as possible, and will see patient in inpatient room. Admission orders: after a detailed discussion of the patient's condition and case, the admit orders are written by me. 01/28 01:40 Order name: Basic Metabolic Panel 01/28 01:40 Order name: Blood Culture Adult (2) 01/28 01:40 Order name: CBC with Diff; Complete Time: 04:12 01/28 04:12 Interpretation: Normal except: HGB 10.9; HCT 32.7; MCV 78.3; MCH 26.0. 01/28 01:40 Order name: Ckmb; Complete Time: 04:12 01/28 01:40 Order name: CPK; Complete Time: 04:12 01/28 01:40 Order name: Lactate; Complete Time: 04:12 01/28 04:12 Interpretation: Normal except: LAC 2.7. 01/28 01:40 Order name: LFT's; Complete Time: 04:12 01/28 01:40 Order name: Lipase; Complete Time: 04:12 01/28 04:12 Interpretation: Normal except: LIP 65. 01/28 01:40 Order name: Procalcitonin; Complete Time: 04:12 01/28 04:12 Interpretation: Abnormal: Procalcitonin 3.10. 01/28 01:40 Order name: Protime (+inr); Complete Time: 04:12 01/28 04:13 Interpretation: Normal except: PT 13.0. 01/28 01:40 Order name: Ptt, Activated; Complete Time: 04:12 01/28 01:40 Order name: Troponin (emerg Dept Use Only); Complete Time: 04:12 01/28 01:40 Order name: Urine Microscopic Only; Complete Time: 04:12 01/28 01:41 Order name: Basic Metabolic Panel; Complete Time: 04:12 [facility] 01/28 04:13 Interpretation: Normal except: NA 135; GLUC 153; BUN 29; GFR 44. 01/28 01:40 Order name: Chest Single View XRAY 01/28 01:41 Order name: Blood Culture [facility] 01/28 02:17 Order name: CT Head Brain wo Cont tw4 01/28 02:58 Order name: Glucose, Ancillary Testing; Complete Time: 04:12 EDMS 01/28 03:15 Order name: Manual Differential; Complete Time: 04:12 EDMS 01/28 04:29 Order name: Lactate Sepsis 2 HR Follow-up EDMS 01/28 05:04 Order name: Basic Metabolic Panel EDMS 01/28 05:04 Order name: Basic Metabolic Panel EDMS 01/28 05:04 Order name: CBC with Automated Diff EDMS 01/28 05:04 Order name: CBC with Automated Diff EDMS 01/28 05:04 Order name: NT PRO-BNP EDMS 01/28 05:04 Order name: NT PRO-BNP EDMS 01/28 05:04 Order name: Troponin I EDMS 01/28 05:04 Order name: Troponin I EDMS 01/28 05:05 Order name: Troponin I EDMS 01/28 01:41 Order name: Accucheck; Complete Time: 01:55 tw4 01/28 01:41 Order name: Cardiac monitoring; Complete Time: 01:55 4 01/28 01:41 Order name: EKG - Nurse/Tech; Complete Time: 02:29 tw4 01/28 01:41 Order name: IV Saline Lock - Large Bore; Complete Time: :4 01/28 01:41 Order name: Labs collected and sent; Complete Time: :55 4 01/28 01:41 Order name: O2 Per Protocol; Complete Time: 01:55 tw4 01/28 01:41 Order name: O2 Sat Monitoring; Complete Time: :55 tw4 01/28 01:41 Order name: Urine Dipstick-Ancillary (obtain specimen); Complete Time: 02:28 tw4 01/28 04:21 Order name: Chest Abdomen Pelvis W Cont EDMS Administered Medications: 01:32 Drug: NS 0.9% (30 ml/kg) 30 ml/kg {Note: 1L NS started PROJECT CONSULTANT via EMS.} Route: IV; Rate: ak1 bolus; Site: right antecubital; 02:00 Drug: NS 0.9% (30 ml/kg) 30 ml/kg {Note: 1450 ml of NS started as per sepsis protocol.} rr5 Route: IV; Rate: bolus; Site: left antecubital; 02:29 Follow up: IV Status: Completed infusion; IV Intake: 1000ml ak1 03:12 Follow up: Response: No adverse reaction; IV Status: Order to discontinue infusion; IV rr5 Intake: 1000ml 02:47 Drug: Zosyn 3.375 grams Route: IVPB; Infused Over: 60 mins; Site: left antecubital; rr5 03:40 Follow up: Response: No adverse reaction; IV Status: Completed infusion; IV Intake: rr5 100ml 03:05 Dru grams of (vancoMYCIN 1 grams, NS 0.9% 250 ml) Route: IVPB; Infused Over: 2 hrs; rr5 Site: right upper arm; 05:10 Follow up: Response: No adverse reaction; IV Status: Completed infusion; IV Intake: rr5 250ml Point of Care Testing: Blood Glucose: 01:51 Blood Glucose: 185 mg/dL; ak1 Ranges: Critical Glucose Levels:Adult <50 mg/dl or >400 mg/dl <40 mg/dl or >180 mg/dl Disposition: 04:10 Critical Care:. tw4 Disposition: 01/28/19 03:23 Hospitalization ordered by Edwardo Angel for Inpatient Admission. Preliminary diagnosis are Other specified sepsis, Altered mental status, unspecified. - Bed requested for Telemetry/MedSurg (Inpatient). - Status is Inpatient Admission. rr5 - Condition is Stable. - Problem is new. - Symptoms have improved. UTI on Admission? No Critical care time excluding procedures: 04:10 Critical care time: Bedside Care: 30 minutes, Consultation: 5 minutes, Family tw4 Intervention: 10 minutes. Total time: 45 minutes Signatures: Dispatcher [employer] EDNH Saira Miller RN RN ak1 Shanti Ramsey, RN RN cg Maurisio Hall MD MD tw4 David Lynch RN RN rr5 Corrections: (The following items were deleted from the chart) 04:05 03:48 LACTATE+C.LAB.BRZ ordered. EDMS EDMS 04:21 04:12 Abdomen Pelvis W Con+CT.RAD.BRZ ordered. EDMS EDMS 04:23 04:12 Thorax W/ Con+CT.RAD.BRZ ordered. EDMS EDMS 05:25 03:23 Hospitalization Ordered by Edwardo Angel MD for Inpatient Admission. Preliminary cg diagnosis is Other specified sepsis; Altered mental status, unspecified. Bed requested for Telemetry/MedSurg (Inpatient). Status is Inpatient Admission. Condition is Stable. Problem is new. Symptoms have improved. UTI on Admission? No. tw4 06:24 05:25 01/28/2019 03:23 Hospitalization Ordered by Edwardo Angel MD for Inpatient rr5 Admission. Preliminary diagnosis is Other specified sepsis; Altered mental status, unspecified. Bed requested for Telemetry/MedSurg (Inpatient). Status is Inpatient Admission. Condition is Stable. Problem is new. Symptoms have improved. UTI on Admission? No. cg
[2019-01-28] MEDS ORDERED: ALBUTEROL 2.5 MG/3 ML NEB SOL NEB PRN (05:01)
[2019-01-28] MEDS ORDERED: IPRATROPIUM BROM 0.5MG/2.5ML NEB PRN (05:01)
--- NOTE | 2019-01-28 07:20 | RAD REPORT ---
EXAM DESCRIPTION: RAD - Chest Single View - 01/28/2019 2:02 am CLINICAL HISTORY: Hypotensive, shortness of breath COMPARISON: January 16 TECHNIQUE: AP portable chest image was obtained 0158 hours . FINDINGS: Lung volumes are low. No peripheral mass or consolidation. Minimal failure or volume overl oad could be masked in this setting. Heart size is normal range for shallow inspiration portable imag ing. No measurable pleural effusion and no pneumothorax. No acute bony abnormality seen. Aortic tortu osity is present across the arch matching prior imaging. IMPRESSION: Limited shallow inspiration film showing no peripheral mass or consolidation. Minimal failure or volume overload could be masked in this setting.
[2019-01-28 10:12] VITALS: BMI 28.8
--- NOTE | 2019-01-28 11:27 | RAD REPORT ---
EXAM DESCRIPTION: CT - Chest Abdomen Pelvis W Cont - 01/28/2019 5:13 am CLINICAL HISTORY: Lethargy. Hypotension. COMPARISON: None. TECHNIQUE: Axial CT imaging of the chest, abdomen and pelvis performed utilizing intravenous contras t. Reformatted coronal and sagittal images obtained. This exam was performed according to our departmental dose-optimization program which includes automa timur exposure control, adjustment of the mA and/or kV according to patient size and/or use of iterativ e reconstruction technique FINDINGS: CHEST HEART/VESSELS: Normal cardiac size. Moderate coronary artery calcifications. Normal caliber thoracic aorta with significant atherosclerosis. Normal branch pattern of the arch vessels. Normal caliber ma in pulmonary artery. MEDIASTINUM AND LEONILA: No adenopathy. Normal central airways and esophagus. LUNGS/PLEURA: Lungs are clear. No edema. No consolidation. Pleural spaces are clear. Lungs are hyper inflated. CHEST WALL/SOFT TISSUES: Mild generalized thoracic spondylosis, most notable at T6-7. Intact sternum . Intact remaining bony thorax. ABDOMEN: LIVER/GALLBLADDER: Liver is enlarged to 20 cm. Mild decreased attenuation due to fatty infiltration. No mass or biliary dilatation. The gallbladder is surgically absent. SPLEEN/PANCREAS: Normal spleen. Normal pancreas. KIDNEYS/ADRENAL GLANDS: Normal adrenal glands. Mild dilatation of the right and left renal pelvis an d ureter to the bladder insertion without visualized stone. Normal bilateral renal enhancement. RETROPERITONEAL VESSELS/NODES: Moderate aortic atherosclerosis. Mesenteric vessels are well-opacifie d. Normal caliber inferior vena cava. No adenopathy. BOWEL: Normal stomach. Small bowel caliber is within normal limits. Appendix is not visualized. Mild sigmoid colon diverticulosis. No diverticulitis. MESENTERY/PERITONEUM: No adenopathy. No ascites or free air. PELVIS: BLADDER: Unremarkable bladder. No filling defect. GENITAL ORGANS: Uterus is surgically absent. PERITONEUM: No pelvic free fluid or adenopathy. BONES AND SOFT TISSUES: There is significant upper lumbar spondylosis. There is a large diffuse disc bulge at L3-4 with greater than 50% spinal canal stenosis and severe narrowing of the bilateral neur oforamen. Mild lumbar diffuse disc bulges at L2-3, L4-5. IMPRESSION: 1. No acute chest disease. Hyperinflation. 2. Hepatomegaly with mild steatosis. 3. Bilateral renal pelvic and ureteral mild dilatation with no obstructing stone or mass. No bladder amalgam. 4. Constipation. 5. Mild sigmoid colon diverticulosis. No diverticulitis. 6. Large diffuse L3-4 disc bulge with greater than 50% spinal canal stenosis and marked bilateral for aminal stenosis. 7. Vascular disease. Electronically signed by: Nicky Holman DO 01/28/2019 5:39 AM CDT Due to temporary technical issues with the PACS/Fluency reporting system, reports are being signed by the in house radiologist as a courtesy to ensure prompt reporting. The interpreting radiologist is f ully responsible for the content of the report.
--- NOTE | 2019-01-28 11:28 | RAD REPORT ---
EXAM DESCRIPTION: CT - Head Brain Wo Cont - 01/28/2019 3:28 am CLINICAL HISTORY: 83 years Female MENTAL STATUS CHANGE COMPARISON: CT head without contrast dated 01/28/2018 TECHNIQUE: Contiguous axial images of the brain were obtained without the administration of intraven ous contrast.This exam was performed according to our departmental dose-optimization program which in cludes use of Automated Exposure Control, adjustment of the mA and/or kV according to patient size an d/or use of iterative reconstruction technique. FINDINGS: Brain: Resolution of right frontal temporoparietal hemorrhagic subdural collection. No acu te intracranial hemorrhage. No extra-axial collection. No mass effect or herniation. Mild prominenc e of the sulci and cisterns Confluent periventricular and subcortical white matter hypodensity is not ed. Prior right caudate and right subinsular lacunar infarcts. Rounded hypodensity in the posterior l eft delroy. Ventricles: Allowing for underlying cerebral volume loss, ventricular size appears within normal limi ts.. Globes and orbits: No acute abnormality. Bones: Prior right frontal ryne hole craniotomies with complete repair anteriorly. Paranasal sinuses: Paranasal sinuses are clear.. Mastoid air cells: Well pneumatized. Soft tissues: Within normal limits IMPRESSION: No acute intracranial hemorrhage, hydrocephalus or herniation. Right frontal skull postsurgical changes. Cerebral volume loss, chronic small vessel ischemic changes and prior lacunar infarcts. If persistent clinical concern for acute ischemia, consider MRI brain without contrast for further evaluation. Electronically signed by: Jericho Choi DO 01/28/2019 3:07 AM CDT Due to temporary technical issues with the PACS/Fluency reporting system, reports are being signed by the in house radiologist as a courtesy to ensure prompt reporting. The interpreting radiologist is f ully responsible for the content of the report.
--- NOTE | 2019-01-28 12:35 | P.HP ---
Certification for Inpatient Patient admitted to: Inpatient With expected LOS: >2 Midnights Practitioner: I am a practitioner with admitting privileges, knowledge of patient current condition, hospital course, and medical plan of care. Services: Services provided to patient in accordance with Admission requirements found in Title 42 Section 412.3 of the Code of Federal Regulations Patient History Date of Service: 01/28/19 Reason for admission: OBTUNDATION, CONFUSION, WEAKNESS. History of Present Illness: MS. MCCAIN HAS BECOME DISORIENTED AND WAS BROUGHT TO HOSPITAL, WAS FOUND TO HAVE LOW BP AND HIGH WBC COUNT. DR. WHEAT DID NOT HAVE SOURCE OF INFECTION SO I ASKED FOR CT SCAN CHEST, ABDOMEN AND PELVIS, SHOWED NO MAJOR SOURCE OF INFECTION. SHE IS BACK TO HER BASELINE NOW. IN ER SHE WAS GIVEN FLUID BOLUS AND VANCOMYCIN , ZOSYN. SISTER IS WITH HER. Allergies codeine [Codeine] Adverse Reaction (Intermediate, Verified 01/28/19 06:41) HEADACHE/NAUSEATED meperidine HCl [From Demerol] Adverse Reaction (Intermediate, Verified 01/28/19 06:41) DIZZINESS/NAUSEA Home Medications: Amitriptyline [Elavil] 100 mg PO BEDTIME 01/28/19 Clonidine HCl [Catapres] 0.1 mg PO TID PRN 01/28/19 Clopidogrel Bisulfate [Plavix] 75 mg PO DAILY 01/28/19 Fluoxetine HCl [Prozac] 20 mg PO DAILY 01/28/19 Gabapentin [Neurontin] 300 mg PO TID 01/28/19 Insulin Glargine,Hum.rec.anlog [Lantus] 20 unit SQ BEDTIME 01/28/19 Lisinopril 40 mg PO DAILY 01/28/19 Melatonin/Pyridoxine HCl (B6) [Melatonin 3 mg Tablet] 1 each PO BEDTIME Metformin ER [Glucophage ER] 500 mg PO BID 01/28/19 Nebivolol HCl [Bystolic] 10 mg PO DAILY 01/28/19 Omeprazole 20 mg PO DAILY 01/28/19 Pantoprazole [Protonix Tab] 40 mg PO BEDTIME 01/28/19 Simvastatin 20 mg PO BEDTIME 01/28/19 Tamsulosin [Flomax] 0.4 mg PO BEDTIME 01/28/19 - Past Medical/Surgical History Has patient received pneumonia vaccine in the past: Yes Diabetic: Yes -: GERD -: Anxiety -: Hypertension -: CVA -: Depression -: IDDM -: Hyperlipidemia -: Cholecystectomy -: Hysterectomy -: Appendectomy - Family History Mother -: Hypertension Father -: Hypertension - Social History Smoking Status: Never smoker Alcohol use: No CD- Drugs: No Caffeine use: Yes Place of Residence: Home Review of Systems 10-point ROS is otherwise unremarkable General: Weakness, Malaise Physical Examination - Vital Signs Temperature: 97.5 F Blood Pressure: 117/60 Pulse: 69 Respirations: 15 Pulse Ox (%): 95 - Physical Exam General: Oriented x3, Mild distress, Obese HEENT: Atraumatic, PERRLA, Mucous membr. moist/pink, EOMI, Sclerae nonicteric Neck: Supple, 2+ carotid pulse no bruit, No LAD, Without JVD or thyroid abnormality Respiratory: Clear to auscultation bilaterally, Normal air movement Cardiovascular: Regular rate/rhythm, Normal S1 S2 Gastrointestinal: Normal bowel sounds, No tenderness Musculoskeletal: No tenderness Integumentary: No rashes Neurological: Normal gait, Normal speech, Normal strength at 5/5 x4 extr, Normal tone, Normal affect Lymphatics: No axilla or inguinal lymphadenopathy - Studies Laboratory Data (last 24 hrs) 01/28/19 01:45: PT 13.0 H, INR 1.11, APTT 34.4 01/28/19 01:45: WBC 20.5 H* D, Hgb 10.9 L, Hct 32.7 L, Plt Count 288 01/28/19 01:45: Sodium 135 L, Potassium 4.1, BUN 29 H, Creatinine 1.17, Glucose 153 H, Total Bilirubin 0.3, AST 9 L, ALT 13, Alkaline Phosphatase 68, Lipase 65 L Assessment and Plan - Problems (Diagnosis) (1) Sepsis Current Visit: Yes Status: Acute Plan: UNCLEAR ETIOLOGY. CT CHEST ABDOMNEN AND PELVIS- NEG FOR SOURCE OF INFECTION. R HYDRONEPHROSIS MILD WITHOUT PYELONEPHRITIS PER DR. LITTLE. BC-2 PENDING UA NEGATIVE I ORDERED MRI BRAIN AND SPINE SHE HAS HEADACHES AND NECK PAIN. I SEE NO VISIBLE SOURCE OF INFECTION. ECHO WITH DOPPLER ORDER GIVEN. THERE ARE NO CLINICAL SIGNS OF ENDOCARDITIS. PMR CAN GIVE RISE TO WBC ELEVATION BUT SEPSIS PICTURE. MAY HAVE TO DO SPINAL TAP. SHE HAS NO NUCHAL REGIDITY OR SLR TEST POSITIVITY. WILL DISCUSS WITH FAMILY. LIKELIHOOD OF MENINGITIS IS LOW. (2) History of CVA (cerebrovascular accident) Current Visit: Yes Status: Acute (3) Diabetes mellitus with hyperglycemia Onset Date: 05/22/15 Current Visit: No Status: Chronic (4) Hypertension Onset Date: 08/18/15 Current Visit: No Status: Chronic Qualifiers: Hypertension type: essential hypertension Qualified Code(s): I10 - Essential (primary) hypertension - Advance Directives Does patient have a Living Will: No Does patient have a Durable POA for Healthcare: No
--- NOTE | 2019-01-28 12:51 | EKG ---
Test Date: 2019-01-28 Test Time: 02:19:28 Video Camera Operator: RR MEASUREMENT RESULTS: Intervals: Rate: 70 IN: 212 QRSD: 142 QT: 490 QTc: 529 [place]: P: 72 IN: 212 QRS: 72 T: 58 INTERPRETIVE STATEMENTS: Sinus rhythm with 1st degree AV block Right bundle branch block Abnormal ECG Compared to ECG 01/16/2019 14:27:58 First degree AV block now present Electronically Signed On 01-28-19 12:50:20 CDT by Anselmo Caballero
[2019-01-28] MEDS: METRONIDAZOLE 500mg IVPB 500 MG/100 ML BAG IV SCH ×3 (13:37→23:58)
[2019-01-28] MEDS: CIPROFLOXACIN 400mg IV 400 MG/200 ML BAG IV SCH ×2 (14:37→20:53)
--- NOTE | 2019-01-28 17:25 | RAD REPORT ---
EXAM DESCRIPTION: MRI - Brain Wo Cont - 01/28/2019 4:59 pm CLINICAL HISTORY: Alteration of awareness/syncope COMPARISON: December 2017 TECHNIQUE: Axial, sagittal, and coronal magnetic images of the brain were obtained. Contrast was not requested FINDINGS: An 11 millimeter area of abnormal signal has developed within the right basal ganglia cons istent with an infarction. Diffusion-weighted/ADC mapping reveal that is not acute The ventricles are normal caliber. An extra-axial fluid collection is not present Cerebral atrophy is present The sinuses and mastoids are clear. IMPRESSION: No acute intracranial abnormality seen
--- NOTE | 2019-01-28 17:47 | RAD REPORT ---
EXAM DESCRIPTION: MRI - C Spine Wo Cont - 01/28/2019 5:00 pm CLINICAL HISTORY: Ataxia COMPARISON: None TECHNIQUE: Magnetic resonance imaging of the cervical spine was obtained with coronal and sagittal r econstruction FINDINGS: Pannus formation involves C1 and C2 with chronic bony erosions. Mild anterior subluxation C2 on C3. Mild spondylosis C2-3. Mild anterior subluxation of C3 on C4. Osteophytes and disc bulge result in moderate narrowing of the right neural foramina and narrowing of the right lateral recess Mild spondylosis C4-5 Mild to moderate posterior subluxation C5 on C6 with disc bulge and osteophytes. Facet hypertrophy. T hecal sac measures 6.5 millimeters. Marked narrowing of the left and moderate to marked narrowing rig ht neural foramina Mild anterior subluxation C6 on C7. Disc bulge and osteophytes. Small central disc protrusion. Thecal sac measures 8 millimeters. C7-T1 unremarkable Spinal cord normal signal IMPRESSION: Mild to moderate posterior subluxation C5 on C6 in combination with spondylosis result i n moderate central spinal stenosis. Marked left and moderate to marked right foraminal stenosis Spondylosis C6-7 resulting in mild central spinal stenosis Spondylosis C3-4 resulting in moderate right foraminal stenosis
[2019-01-28] MEDS: ATORVASTATIN 10 MG TAB PO SCH (20:53)
[2019-01-28] MEDS: GABAPENTIN 300 MG CAP PO SCH (20:53)
[2019-01-28] MEDS: INSULIN GLARGINE 100 UNITS/ML SQ SCH (20:54)
[2019-01-28] MEDS: METFORMIN ER 500 MG TAB PO SCH (20:54)
[2019-01-28] MEDS: AMITRIPTYLINE 50 MG TAB PO SCH (20:54)
[2019-01-28] MEDS: TAMSULOSIN 0.4 MG SR CAP PO SCH (20:54)
[2019-01-28] MEDS: PANTOPRAZOLE 40MG TABLET PO SCH (20:54)
[2019-01-28 23:59] LABS: Urine Appearance CLEAR; Urine Bilirubin NEGATIVE (NEG); Urine Blood NEGATIVE (NEG); Urine Color YELLOW; Urine Glucose NEGATIVE (NEG); Urine Protein NEGATIVE (NEG); Urine Urobilinogen 0.2 mg/dL (0.2-1.0)
[2019-01-29 00:50] LABS: Urine Bacteria <20 /HPF (<20); Urine Culture Reflex Order NOT NEEDED; Urine RBC <5 /HPF (NONE SEEN)
[2019-01-29] MEDS: cloNIDine HCl 0.1 MG TAB PO PRN (03:43)
[2019-01-29] MEDS: METRONIDAZOLE 500mg IVPB 500 MG/100 ML BAG IV SCH ×3 (05:40→17:14)
[2019-01-29 06:29] LABS: Absolute Lymphocytes (CBC) 2.1 K/uL (0.7-4.9); Absolute Monocytes 0.6 K/uL (0.1-1.3); Absolute Neutrophil 5.4 K/uL (1.8-8.0); Basophils % 0.3 % (0-1.3); Eosinophils % 1.9 % (0-4.4); Hematocrit 29.7 % (36.0-45.0); Lymphocytes % 25.6 % (15.3-44.8); MPV 7.9 fL (7.6-11.3); Monocytes % 6.9 % (3.3-12.3); RBC Red Blood Cell Count 3.78 M/uL (3.86-4.86)
[2019-01-29 06:40] LABS: Magnesium 2.1 mg/dL (1.8-2.4); Potassium 3.8 mmol/L (3.5-5.1)
[2019-01-29 07:29] LABS: MPV 7.9 fL (7.6-11.3)
[2019-01-29 08:12] LABS: Platelet Estimate ADEQ
[2019-01-29] MEDS: LISINOPRIL 20 MG TAB PO SCH (09:07)
[2019-01-29] MEDS: CLOPIDOGREL 75 MG TABLET PO SCH (09:08)
[2019-01-29] MEDS: METFORMIN ER 500 MG TAB PO SCH ×2 (09:08→17:30)
[2019-01-29] MEDS: GABAPENTIN 300 MG CAP PO SCH ×3 (09:08→21:40)
[2019-01-29] MEDS: ENOXAPARIN 40 MG/0.4 ML SQ SCH (09:08)
[2019-01-29] MEDS: FLUOXETINE 20 MG CAP PO SCH (09:08)
[2019-01-29] MEDS: NEBIVOLOL HCL 5 MG TAB PO SCH (09:08)
[2019-01-29] MEDS: CIPROFLOXACIN 400mg IV 400 MG/200 ML BAG IV SCH ×2 (10:25→21:40)
--- NOTE | 2019-01-29 12:57 | P.PN ---
Subjective Date of Service: 01/29/19 Chief Complaint: LOT BETTER. Subjective: Improving SHE HAS NO NEW COMPLAINTS. Review of Systems 10-point ROS is otherwise unremarkable Neurological: Weakness, Incoordination (NO CHANGES.) Physical Examination - Vital Signs Temperature: 97.3 F Blood Pressure: 145/76 Pulse: 75 Respirations: 16 Pulse Ox (%): 95 - Physical Exam General: Alert, Mild distress, Obese HEENT: Atraumatic, PERRLA, EOMI Neck: Supple, JVD not distended Respiratory: Clear to auscultation bilaterally, Normal air movement Cardiovascular: Regular rate/rhythm, Normal S1 S2 Gastrointestinal: Normal bowel sounds, No tenderness Musculoskeletal: No tenderness Integumentary: No rashes Neurological: Normal speech, Normal tone, Normal affect, Abnormal gait (SINCE STROKES, UNCHANGED.) Lymphatics: No axilla or inguinal lymphadenopathy - Studies Medications List Reviewed: Yes Assessment And Plan - Current Problems (Diagnosis) (1) Sepsis Current Visit: Yes Status: Acute Plan: UNCLEAR ETIOLOGY. CT CHEST ABDOMNEN AND PELVIS- NEG FOR SOURCE OF INFECTION. R HYDRONEPHROSIS MILD WITHOUT PYELONEPHRITIS PER DR. LITTLE. BC-2 PENDING UA NEGATIVE I ORDERED MRI BRAIN AND SPINE SHE HAS HEADACHES AND NECK PAIN. I SEE NO VISIBLE SOURCE OF INFECTION. ECHO WITH DOPPLER ORDER GIVEN. THERE ARE NO CLINICAL SIGNS OF ENDOCARDITIS. PMR CAN GIVE RISE TO WBC ELEVATION BUT SEPSIS PICTURE. MAY HAVE TO DO SPINAL TAP. SHE HAS NO NUCHAL REGIDITY OR SLR TEST POSITIVITY. WILL DISCUSS WITH FAMILY. LIKELIHOOD OF MENINGITIS IS LOW. IT IS UNSUAL. THERE IS NO SOURCE YET. BC2-NEG UA NEGATIVE CT SCANS NEGATIVE. MRI C SPINE-DJD BRAIN NEGATIVE. FLU TEST PENDING. WILL FU IN AM AND DC HOME ONCE I HAVE NEGATIVE BLOOD CULTURES. (2) History of CVA (cerebrovascular accident) Current Visit: Yes Status: Acute (3) Diabetes mellitus with hyperglycemia Onset Date: 05/22/15 Current Visit: No Status: Chronic (4) Hypertension Onset Date: 08/18/15 Current Visit: No Status: Chronic Qualifiers: Hypertension type: essential hypertension Qualified Code(s): I10 - Essential (primary) hypertension
[2019-01-29] MEDS ORDERED: IPRATROPIUM BROM 0.5MG/2.5ML NEB PRN (16:00)
[2019-01-29] MEDS ORDERED: ALBUTEROL 2.5 MG/3 ML NEB SOL NEB PRN (16:00)
[2019-01-29] MEDS ORDERED: VANCOMYCIN 1 GM in NA CHLORIDE 0.9% 250 ML IVPB SCH (17:00)
[2019-01-29] MEDS ORDERED: VANCOMYCIN 2 GM in NA CHLORIDE 0.9% 500 ML IVPB SCH (18:00)
[2019-01-29] MEDS: PANTOPRAZOLE 40MG TABLET PO SCH (21:40)
[2019-01-29] MEDS: INSULIN GLARGINE 100 UNITS/ML SQ SCH (21:41)
[2019-01-29] MEDS: TAMSULOSIN 0.4 MG SR CAP PO SCH (21:41)
[2019-01-29] MEDS: ATORVASTATIN 10 MG TAB PO SCH (21:41)
[2019-01-29] MEDS: AMITRIPTYLINE 50 MG TAB PO SCH (21:43)
[2019-01-30] MEDS: METRONIDAZOLE 500mg IVPB 500 MG/100 ML BAG IV SCH ×4 (00:17→17:06)
--- NOTE | 2019-01-30 08:23 | ECHO ---
HEIGHT: 5 ft 6 in WEIGHT: 179 lb 0 oz DATE OF STUDY: 01/29/[address]: Edwardo Angel MD 2-DIMENSIONAL: YES M.MODE: YES DOPPLER: YES COLOR FLOW: YES TDS: NO PORTABLE: NO DEFINITY: NO BUBBLE STUDY: NO DIAGNOSIS: EDEMA CARDIAC HISTORY: CATHERIZATION: NO SURGERY: NO PROSTHETIC VALVE: NO PACEMAKER: NO MEASUREMENTS (cm) DIASTOLIC (NORMALS) SYSTOLIC (NORMALS) IVSd 1.0 (0.6-1.2) LA Diam 2.0 (1.9-4.0) LVEF 56% LVIDd 3.4 (3.5-5.7) LVIDs 2.4 (2.0-3.5) %FS 29% LVPWd 1.1 (0.6-1.2) Ao Diam 2.9 (2.0-3.7) 2 DIMENSIONAL ASSESSMENT: RIGHT ATRIUM: NORMAL LEFT ATRIUM: NORMAL RIGHT VENTRICLE: NORMAL LEFT VENTRICLE: NORMAL TRICUSPID VALVE: NORMAL MITRAL VALVE: NORMAL PULMONIC VALVE: NORMAL AORTIC VALVE: MILD THICKENING, 3 LEAFLET PERICARDIAL EFFUSION: NONE AORTIC ROOT: NORMAL LEFT VENTRICULAR WALL MOTION: NORMAL DOPPLER/COLOR FLOW: MILD AORTIC REGURGITATION. TRACE MITRAL AND TRICUSPID REGURGITATION. NORMAL RIGHT VENTRICULAR SYSTOLIC PRESSURE. COMMENTS: NORMAL LEFT VENTRICULAR EJECTION FRACTION. MILD AORTIC SCLEROSIS WITH NO AORTIC STENOSIS. MILD AORTIC REGURGITATION. TRACE MITRAL AND TRICUSPID REGURGITATION. TECHNOLOGIST: Shoaib OLEA
[2019-01-30] MEDS: CLOPIDOGREL 75 MG TABLET PO SCH (09:45)
[2019-01-30] MEDS: LISINOPRIL 20 MG TAB PO SCH (09:45)
[2019-01-30] MEDS: NEBIVOLOL HCL 5 MG TAB PO SCH (09:45)
[2019-01-30] MEDS: CIPROFLOXACIN 400mg IV 400 MG/200 ML BAG IV SCH ×2 (09:45→21:17)
[2019-01-30] MEDS: FLUOXETINE 20 MG CAP PO SCH (09:45)
[2019-01-30] MEDS: GABAPENTIN 300 MG CAP PO SCH ×3 (09:46→21:16)
[2019-01-30] MEDS: ENOXAPARIN 40 MG/0.4 ML SQ SCH (09:46)
[2019-01-30] MEDS: METFORMIN ER 500 MG TAB PO SCH ×2 (09:53→17:05)
[2019-01-30] MEDS: ACETAMINOPHEN 500 MG TAB PO PRN (17:05)
[2019-01-30] MEDS: VANCOMYCIN 1.5 GM in NA CHLORIDE 0.9% 500 ML IVPB SCH (18:15)
[2019-01-30] MEDS: cloNIDine HCl 0.1 MG TAB PO PRN (18:15)
[2019-01-30] MEDS: PANTOPRAZOLE 40MG TABLET PO SCH (21:15)
[2019-01-30] MEDS: AMITRIPTYLINE 50 MG TAB PO SCH (21:15)
[2019-01-30] MEDS: TAMSULOSIN 0.4 MG SR CAP PO SCH (21:16)
[2019-01-30] MEDS: ATORVASTATIN 10 MG TAB PO SCH (21:16)
[2019-01-30] MEDS: INSULIN GLARGINE 100 UNITS/ML SQ SCH (21:16)
--- NOTE | 2019-01-30 21:24 | P.PN ---
Subjective Date of Service: 01/30/19 Chief Complaint: LOT BETTER. SHE HAS NO NEW COMPLAINTS. SHE IS STABLE, HAS NO FEVER OR LOW BP. Review of Systems 10-point ROS is otherwise unremarkable General: Weakness Physical Examination - Vital Signs Temperature: 97.9 F Blood Pressure: 158/86 Pulse: 66 Respirations: 16 Pulse Ox (%): 96 - Physical Exam General: Alert, Mild distress, Obese HEENT: Atraumatic, PERRLA, EOMI Neck: Supple, JVD not distended Respiratory: Clear to auscultation bilaterally, Normal air movement Cardiovascular: Regular rate/rhythm, Normal S1 S2 Gastrointestinal: Normal bowel sounds, No tenderness Musculoskeletal: No tenderness Integumentary: No rashes Neurological: Normal speech, Normal tone, Normal affect Lymphatics: No axilla or inguinal lymphadenopathy - Studies Medications List Reviewed: Yes Assessment And Plan - Current Problems (Diagnosis) (1) Sepsis Current Visit: Yes Status: Acute Plan: UNCLEAR ETIOLOGY. CT CHEST ABDOMNEN AND PELVIS- NEG FOR SOURCE OF INFECTION. R HYDRONEPHROSIS MILD WITHOUT PYELONEPHRITIS PER DR. LITTLE. BC-2 PENDING UA NEGATIVE I ORDERED MRI BRAIN AND SPINE SHE HAS HEADACHES AND NECK PAIN. I SEE NO VISIBLE SOURCE OF INFECTION. ECHO WITH DOPPLER ORDER GIVEN. THERE ARE NO CLINICAL SIGNS OF ENDOCARDITIS. PMR CAN GIVE RISE TO WBC ELEVATION BUT SEPSIS PICTURE. MAY HAVE TO DO SPINAL TAP. SHE HAS NO NUCHAL REGIDITY OR SLR TEST POSITIVITY. WILL DISCUSS WITH FAMILY. LIKELIHOOD OF MENINGITIS IS LOW. IT IS UNSUAL. THERE IS NO SOURCE YET. BC2-NEG UA NEGATIVE CT SCANS NEGATIVE. MRI C SPINE-DJD BRAIN NEGATIVE. FLU TEST PENDING. WILL FU IN AM AND DC HOME ONCE I HAVE NEGATIVE BLOOD CULTURES. ONE CULTURE I POSITIVE, GRAM POS COCCI INCLUSTERS. THIS MAY OR MAY NOT BE CONTAMINANT. SHE CAME WITH PICTURE OF SEPSIS AND THE ONLY CLUE SO FAR IS THIS. I CALLED DR. ROSSI TO GET KETURAH DONE HE WILL GET ID CONSULT WHILE AT [facility]. (2) History of CVA (cerebrovascular accident) Current Visit: Yes Status: Acute (3) Diabetes mellitus with hyperglycemia Onset Date: 05/22/15 Current Visit: No Status: Chronic (4) Hypertension Onset Date: 08/18/15 Current Visit: No Status: Chronic Qualifiers: Hypertension type: essential hypertension Qualified Code(s): I10 - Essential (primary) hypertension
[2019-01-31] MEDS: cloNIDine HCl 0.1 MG TAB PO PRN (05:08)
[2019-01-31 06:32] LABS: Potassium 3.6 mmol/L (3.5-5.1)
[2019-01-31 06:35] LABS: Absolute Monocytes 0.4 K/uL (0.1-1.3); Absolute Neutrophil 3.3 K/uL (1.8-8.0); Basophils % 0.4 % (0-1.3); Eosinophils % 2.6 % (0-4.4); Hematocrit 30.4 % (36.0-45.0); Lymphocytes % 33.7 % (15.3-44.8); MPV 7.9 fL (7.6-11.3); Monocytes % 7.3 % (3.3-12.3); RBC Red Blood Cell Count 3.88 M/uL (3.86-4.86)
[2019-01-31] MEDS: METFORMIN ER 500 MG TAB PO SCH ×2 (09:00→17:27)
[2019-01-31] MEDS: NEBIVOLOL HCL 5 MG TAB PO SCH (09:00)
[2019-01-31] MEDS: ENOXAPARIN 40 MG/0.4 ML SQ SCH (09:00)
[2019-01-31] MEDS: CLOPIDOGREL 75 MG TABLET PO SCH (09:01)
[2019-01-31] MEDS: AMLODIPINE 5 MG TAB PO SCH (09:01)
[2019-01-31] MEDS: LISINOPRIL 20 MG TAB PO SCH (09:01)
[2019-01-31] MEDS: GABAPENTIN 300 MG CAP PO SCH ×3 (09:02→21:03)
[2019-01-31] MEDS: FLUOXETINE 20 MG CAP PO SCH (09:02)
--- NOTE | 2019-01-31 09:48 | RAD REPORT ---
EXAM DESCRIPTION: RAD - Chest Single View - 01/30/2019 11:45 pm CLINICAL HISTORY: 83 years Female, PICC placement COMPARISON: None. FINDINGS: The heart is mildly enlarged. Mediastinum mediastinum is remarkable for aneurysmal dilatation of the aortic arch which measures 6 c m in transverse diameter And right-sided PICC line is identified with the distal tip in the superior vena cava. The lung valenzuela are clear of active infiltrates. The pulmonary vascularity is unremarkable. No active pleural disease is present. IMPRESSION: 1. Successful placement right-sided PICC line. 2. Aneurysmal dilatation of the aortic arch. 3. Mild cardiomegaly. Electronically signed by: Chester Farah MD 01/30/2019 11:49 PM CDT Due to temporary technical issues with the PACS/Fluency reporting system, reports are being signed by the in house radiologist as a courtesy to ensure prompt reporting. The interpreting radiologist is f ully responsible for the content of the report.
[2019-01-31] MEDS: ACETAMINOPHEN 500 MG TAB PO PRN ×2 (13:54→21:10)
--- NOTE | 2019-01-31 17:51 | P.PN ---
Subjective Date of Service: 01/31/19 Chief Complaint: LOT BETTER. Subjective: Improving SHE HAS NO NEW COMPLAINTS. SHE IS STABLE, HAS NO FEVER OR LOW BP. SHE IS STABLE. NO CHEST PAIN, NO COUGH, NO DIARRHEA OR VOMITING. Review of Systems 10-point ROS is otherwise unremarkable Physical Examination - Vital Signs Temperature: 97.1 F Blood Pressure: 150/80 Pulse: 79 Respirations: 18 Pulse Ox (%): 95 - Physical Exam General: Alert, In no apparent distress, Obese HEENT: Atraumatic, PERRLA, EOMI Neck: Supple, JVD not distended Respiratory: Clear to auscultation bilaterally, Normal air movement Cardiovascular: Regular rate/rhythm, Normal S1 S2 Gastrointestinal: Normal bowel sounds, No tenderness Musculoskeletal: No tenderness Integumentary: No rashes Neurological: Normal speech, Normal tone, Normal affect Lymphatics: No axilla or inguinal lymphadenopathy - Studies Medications List Reviewed: Yes Assessment And Plan - Current Problems (Diagnosis) (1) Sepsis Current Visit: Yes Status: Acute Plan: UNCLEAR ETIOLOGY. CT CHEST ABDOMNEN AND PELVIS- NEG FOR SOURCE OF INFECTION. R HYDRONEPHROSIS MILD WITHOUT PYELONEPHRITIS PER DR. LITTLE. BC-2 PENDING UA NEGATIVE I ORDERED MRI BRAIN AND SPINE SHE HAS HEADACHES AND NECK PAIN. I SEE NO VISIBLE SOURCE OF INFECTION. ECHO WITH DOPPLER ORDER GIVEN. THERE ARE NO CLINICAL SIGNS OF ENDOCARDITIS. PMR CAN GIVE RISE TO WBC ELEVATION BUT SEPSIS PICTURE. MAY HAVE TO DO SPINAL TAP. SHE HAS NO NUCHAL REGIDITY OR SLR TEST POSITIVITY. WILL DISCUSS WITH FAMILY. LIKELIHOOD OF MENINGITIS IS LOW. IT IS UNSUAL. THERE IS NO SOURCE YET. BC2-NEG UA NEGATIVE CT SCANS NEGATIVE. MRI C SPINE-DJD BRAIN NEGATIVE. FLU TEST PENDING. WILL FU IN AM AND DC HOME ONCE I HAVE NEGATIVE BLOOD CULTURES. ONE CULTURE I POSITIVE, GRAM POS COCCI INCLUSTERS. THIS MAY OR MAY NOT BE CONTAMINANT. SHE CAME WITH PICTURE OF SEPSIS AND THE ONLY CLUE SO FAR IS THIS. I CALLED DR. ROSSI TO GET KETURAH DONE HE WILL GET ID CONSULT WHILE AT [facility]. ONE OF FOUR CULTURES POS AND SHOWS POSSIBLE SKIN CONTAMINATION. THIS CREATS A SITUATION WHERE WE DON'T KNOW HOW AND WHY SHE GOT SEPTIC. SHE IS BACK TO HER BASELINE AND COMFORATBLE. (2) History of CVA (cerebrovascular accident) Current Visit: Yes Status: Acute (3) Diabetes mellitus with hyperglycemia Onset Date: 05/22/15 Current Visit: No Status: Chronic (4) Hypertension Onset Date: 08/18/15 Current Visit: No Status: Chronic Qualifiers: Hypertension type: essential hypertension Qualified Code(s): I10 - Essential (primary) hypertension
[2019-01-31] MEDS: VANCOMYCIN 1.5 GM in NA CHLORIDE 0.9% 500 ML IVPB SCH (18:47)
[2019-01-31] MEDS: AMITRIPTYLINE 50 MG TAB PO SCH (21:03)
[2019-01-31] MEDS: PANTOPRAZOLE 40MG TABLET PO SCH (21:03)
[2019-01-31] MEDS: ATORVASTATIN 10 MG TAB PO SCH (21:03)
[2019-01-31] MEDS: TAMSULOSIN 0.4 MG SR CAP PO SCH (21:03)
[2019-01-31] MEDS: INSULIN GLARGINE 100 UNITS/ML SQ SCH (21:03)
[2019-02-01 05:41] LABS: Absolute Lymphocytes (CBC) 1.9 K/uL (0.7-4.9); Absolute Monocytes 0.4 K/uL (0.1-1.3); Basophils % 0.5 % (0-1.3); Eosinophils % 2.7 % (0-4.4); Hematocrit 30.2 % (36.0-45.0); Lymphocytes % 35.1 % (15.3-44.8); MPV 7.6 fL (7.6-11.3); Monocytes % 7.4 % (3.3-12.3); RBC Red Blood Cell Count 3.84 M/uL (3.86-4.86)
[2019-02-01 05:52] LABS: Potassium 3.4 mmol/L (3.5-5.1)
[2019-02-01 08:09] VITALS: O2SAT 96
[2019-02-01] MEDS: ENOXAPARIN 40 MG/0.4 ML SQ SCH (09:09)
[2019-02-01] MEDS: NEBIVOLOL HCL 5 MG TAB PO SCH (09:09)
[2019-02-01] MEDS: LISINOPRIL 20 MG TAB PO SCH (09:10)
[2019-02-01] MEDS: GABAPENTIN 300 MG CAP PO SCH ×2 (09:10→14:58)
[2019-02-01] MEDS: FLUOXETINE 20 MG CAP PO SCH (09:10)
[2019-02-01] MEDS: AMLODIPINE 5 MG TAB PO SCH (09:10)
[2019-02-01] MEDS: METFORMIN ER 500 MG TAB PO SCH (09:10)
[2019-02-01] MEDS: CLOPIDOGREL 75 MG TABLET PO SCH (09:11)
[2019-02-01] MEDS: ACETAMINOPHEN 500 MG TAB PO PRN (12:13)
--- NOTE | 2019-02-01 13:22 | P.DS ---
Admission Date: 01/28/19 Discharge Date: 02/01/19 Disposition: TRANSFER TO [facility] Discharge Condition: FAIR Reason for Admission: LOT BETTER. - Problems (1) Sepsis Current Visit: Yes Status: Acute (2) History of CVA (cerebrovascular accident) Current Visit: Yes Status: Acute (3) Diabetes mellitus with hyperglycemia Onset Date: 05/22/15 Current Visit: No Status: Chronic (4) Hypertension Onset Date: 08/18/15 Current Visit: No Status: Chronic Qualifiers: Hypertension type: essential hypertension Qualified Code(s): I10 - Essential (primary) hypertension Brief History of Present Illness: MS. MCCAIN HAS BECOME DISORIENTED AND WAS BROUGHT TO HOSPITAL, WAS FOUND TO HAVE LOW BP AND HIGH WBC COUNT. DR. WHEAT DID NOT HAVE SOURCE OF INFECTION SO I ASKED FOR CT SCAN CHEST, ABDOMEN AND PELVIS, SHOWED NO MAJOR SOURCE OF INFECTION. SHE IS BACK TO HER BASELINE NOW. IN ER SHE WAS GIVEN FLUID BOLUS AND VANCOMYCIN , ZOSYN. SISTER IS WITH HER. MS. MCCAIN CAME IN SEPTIC BUT NO OTHER SOURCE WAS FOUND ON FULL EVAL. ONE OUT OF FORU CULTURES WAS POSITIVE BUT IT IS A FALSE POSITIVE AND CONTAMINANT. SHE IS DOING GREAT. I WAS GOING TO GET KETURAH BUT DONE BUT THINKING FURTHER SHE HAS NO BLOOD CULTURE ALSO POSITIVE. I WILL GIVE HER LEVAQUIN FOR 5 DAYS AND FOLLOW HER ROUTINELY. SHE HAD DIARRHEA YESTERDAY BUT NOT TODAY. I CAN'T GET A C DIFF SAMPLE. SHE IS STABLE AND AFEBRILE AT [place]. Vital Signs/Physical Exam: Temp Pulse Resp BP Pulse Ox 97.9 F 76 17 150/82 H 95 02/01/19 10:12 02/01/19 10:12 02/01/19 10:12 02/01/19 10:12 02/01/19 10:12 Laboratory Data at Discharge: WBC 5.5 K/uL (4.3-10.9) 02/01/19 05:25 Hgb 10.0 g/dL (12.0-15.0) L 02/01/19 05:25 Hct 30.2 % (36.0-45.0) L 02/01/19 05:25 Plt Count 265 K/uL (152-406) 02/01/19 05:25 PT 13.0 SECONDS (9.5-12.5) H 01/28/19 01:45 INR 1.11 01/28/19 01:45 APTT 34.4 SECONDS (24.3-36.9) 01/28/19 01:45 Sodium 142 mmol/L (136-145) 02/01/19 05:25 Potassium 3.4 mmol/L (3.5-5.1) L 02/01/19 05:25 BUN 7 mg/dL (7-18) 02/01/19 05:25 Creatinine 0.80 mg/dL (0.55-1.3) 02/01/19 05:25 Glucose 133 mg/dL (74-106) H 02/01/19 05:25 Magnesium 2.1 mg/dL (1.8-2.4) 01/29/19 06:06 Total Bilirubin 0.3 mg/dL (0.2-1.0) 01/28/19 01:45 AST 9 U/L (15-37) L 01/28/19 01:45 ALT 13 U/L (12-78) 01/28/19 01:45 Alkaline Phosphatase 68 U/L (45-117) 01/28/19 01:45 Troponin I < 0.02 ng/mL (0.0-0.045) 01/28/19 09:33 Lipase 65 U/L (73-393) L 01/28/19 01:45 Home Medications: Amitriptyline [Elavil*] 100 mg PO BEDTIME 01/28/19 Clonidine HCl [Catapres] 0.1 mg PO TID PRN 01/28/19 Clopidogrel Bisulfate [Plavix*] 75 mg PO DAILY 01/28/19 Fluoxetine HCl [Prozac] 20 mg PO DAILY 01/28/19 Gabapentin [Neurontin] 300 mg PO TID 01/28/19 Insulin Glargine,Hum.rec.anlog [Lantus] 20 unit SQ BEDTIME 01/28/19 Lisinopril 40 mg PO DAILY 01/28/19 Melatonin/Pyridoxine HCl (B6) [Melatonin 3 mg Tablet] 1 each PO BEDTIME Metformin ER [Glucophage ER*] 500 mg PO BID 01/28/19 Nebivolol HCl [Bystolic] 10 mg PO DAILY 01/28/19 Pantoprazole [Protonix Tab*] 40 mg PO BEDTIME 01/28/19 Simvastatin 20 mg PO BEDTIME 01/28/19 Tamsulosin [Flomax*] 0.4 mg PO BEDTIME 01/28/19 Amlodipine [Norvasc*] 5 mg PO DAILY #90 tab 02/01/19 levoFLOXacin [Levaquin*] 500 mg PO DAILY #7 tab 02/01/19 New Medications: Amlodipine [Norvasc*] 5 mg PO DAILY #90 tab levoFLOXacin [Levaquin*] 500 mg PO DAILY #7 tab Patient Discharge Instructions: DR. ROSSI WILL DO KETURAH AND WILL GET ID CONSULT FOR SEPSIS OF UNKNOWN ORIGIN. Diet: AHA
[2019-02-01 17:26] VITALS: BP 143/60; TEMP 97.4
== END 2019-02-01 18:00 | disposition home health service (06) | DRG 872 ==
LOC: ER 01:37 → ERHOLD 04:59 → 2ND 05:55
PROVIDERS: ADMIT Internal Medicine; ATTEND Internal Medicine
PROC: 02HV33Z Insertion of Infusion Device into Superior Vena Cava, Percutaneous Approach (ICD-10-PCS; principal; 2019-01-30)
DX: A41.9 Sepsis, unspecified organism (principal); N13.30 Unspecified hydronephrosis; E11.65 Type 2 diabetes mellitus with hyperglycemia; I10 Essential (primary) hypertension; E78.5 Hyperlipidemia, unspecified; F32.9 Major depressive disorder, single episode, unspecified; F41.9 Anxiety disorder, unspecified; K21.9 Gastro-esophageal reflux disease without esophagitis; R19.7 Diarrhea, unspecified; E66.9 Obesity, unspecified; Z68.28 Body mass index [BMI] 28.0-28.9, adult; Z79.4 Long term (current) use of insulin; Z86.73 Personal history of transient ischemic attack (TIA), and cerebral infarction without residual deficits; Z88.5 Allergy status to narcotic agent
CPT/HCPCS: 36415; 51702; 70450; 70551; 71045; 71260; 72141; 74177; 80048; 80076; 80202; 81001; 81015; 82550; 82553; 82565; 82962; 83605; 83690; 83735; 84145; 84484; 85025; 85049; 85610; 85652; 85730; 87040; 87205; 87493; 87804; 93005; 93306; 94760; 96365; 96367; 97163; 99291; 99292; J0744; J1650; J2543; J7030; Q9967

== ENCOUNTER 2019-05-02 21:54 | Observation (INO) | payer OTHER, MEDICARE ==
--- NOTE | 2019-05-02 22:40 | EDPHYS ---
Physician Documentation [facility] Name: Skylar Grossman Age: 83 yrs Sex: Female : 1935 Arrival Date: 05/02/2019 Time: 22:00 Bed 4 Private MD: ED Physician Vick Rader HPI: 05/03 03:37 This 83 yrs old Female presents to ER via EMS with complaints of Hypotention. kdr 03:37 This 83 yrs old Female presents to ER via EMS with complaints of Hypotention kdr \T\ syncope. 03:37 Syncope. The patient had been put in a wheel chair to go the the bathroom and about 15 kdr minutes from being placed in the chair, she became unresponsive. EMS was called and on their arrival she was still unresponsive and her SBP was about 80 and HR of 59. By the time of her arrival she was awake but not back to baseline . Onset: The symptoms/episode began/occurred suddenly, just prior to arrival. Severity of symptoms: At their worst the symptoms were incapacitating in the emergency department the symptoms are unchanged. The patient has not experienced similar symptoms in the past. The patient has not recently seen a physician. Historical: - Allergies: 05/02 22:11 Codeine (Upset stomach); tr5 22:11 Morphine; tr5 - Home Meds: 22:11 amitriptyline 100 mg Oral tab 1 tab nightly [Active]; Bystolic 10 mg Oral tab once tr5 daily [Active]; Flomax 0.4 mg Oral cp24 1 cap once daily [Active]; Humalog Sub-Q [Active]; Lantus 100 unit/mL Sub-Q soln 20 unit nightly [Active]; lisinopril 40 mg Oral tab 1 tab once daily [Active]; melatonin 3 mg Oral tab nightly [Active]; metformin 500 mg Oral tab 1 tab 2 times per day [Active]; Neurontin 300 mg Oral cap 1 cap 3 times per day [Active]; Plavix 75 mg Oral tab 1 tab once daily [Active]; Prilosec 20 mg Oral cpDR 1 cap once daily [Active]; Protonix 40 mg Oral TbEC 1 tab once daily [Active]; simvastatin 20 mg Oral tab 1 tab nightly [Active]; - PMHx: 22:11 CVA; Depression; Diabetes - IDDM; GERD; High Cholesterol; Hypertension; tr5 - Immunization history:: Last tetanus immunization: up to date. - Social history:: Smoking status: Patient/guardian denies using tobacco, Patient/guardian denies using alcohol, street drugs. - Ebola Screening: : Patient negative for fever greater than or equal to 101.5 degrees Fahrenheit, and additional compatible Ebola Virus Disease symptoms Patient denies exposure to infectious person Patient denies travel to an Ebola-affected area in the 21 days before illness onset. ROS: 05/03 03:37 Constitutional: Negative for fever, chills, and weight loss, - general weakness Eyes: kdr Negative for injury, pain, redness, and discharge, ENT: Negative for injury, pain, and discharge, Neck: Negative for injury, pain, and swelling, Cardiovascular: Negative for chest pain, palpitations, and edema, Respiratory: Negative for shortness of breath, cough, wheezing, and pleuritic chest pain, Abdomen/GI: Negative for abdominal pain, nausea, vomiting, diarrhea, and constipation, Back: Negative for injury and pain, : Negative for injury, bleeding, discharge, and swelling, MS/Extremity: Negative for injury and deformity, Skin: Negative for injury, rash, and discoloration, Psych: Negative for depression, anxiety, suicide ideation, homicidal ideation, and hallucinations, Allergy/Immunology: Negative for hives, rash, and allergies, Endocrine: Negative for neck swelling, polydipsia, polyuria, polyphagia, and marked weight changes, Hematologic/Lymphatic: Negative for swollen nodes, abnormal bleeding, and unusual bruising. Neuro: Positive for altered mental status, loss of consciousness, syncope, weakness, Negative for seizure activity, speech changes, tremor. Exam: 03:37 Constitutional: This is a well developed, well nourished patient who is awake, alert, kdr and in no acute distress. Head/Face: Normocephalic, atraumatic. Eyes: Pupils equal round and reactive to light, extra-ocular motions intact. Lids and lashes normal. Conjunctiva and sclera are non-icteric and not injected. Cornea within normal limits. Periorbital areas with no swelling, redness, or edema. Neck: Trachea midline, no thyromegaly or masses palpated, and no cervical lymphadenopathy. Supple, full range of motion without nuchal rigidity, or vertebral point tenderness. No Meningismus. Chest/axilla: Normal chest wall appearance and motion. Nontender with no deformity. No lesions are appreciated. Cardiovascular: Regular rate and rhythm with a normal S1 and S2. No gallops, murmurs, or rubs. Normal PMI, no JVD. No pulse deficits. Respiratory: Lungs have equal breath sounds bilaterally, clear to auscultation and percussion. No rales, rhonchi or wheezes noted. No increased work of breathing, no retractions or nasal flaring. Abdomen/GI: Soft, non-tender, with normal bowel sounds. No distension or tympany. No guarding or rebound. No evidence of tenderness throughout. Back: No spinal tenderness. No costovertebral tenderness. Full range of motion. Skin: Warm, dry with normal turgor. Normal color with no rashes, no lesions, and no evidence of cellulitis. MS/ Extremity: Pulses equal, no cyanosis. Neurovascular intact. Full, normal range of motion. Neuro: Awake and alert, GCS 14, oriented to person, place, time, and situation. Cranial nerves II-XII grossly intact. Motor strength 4+-5/5 in all extremities. Sensory grossly intact. Psych: Awake, alert, with orientation to person, place and time. Behavior, mood, and affect are within normal limits. Vital Signs: 05/02 21:52 BP 145 / 75; Pulse 60; Resp 18; Temp 97.6(O); Pulse Ox 95% on R/A; Weight 72.57 kg (R); fc Height 5 ft. 4 in. (162.56 cm) (R); Pain 2/10; 22:45 BP 149 / 125; Pulse 58; Resp 16; Pulse Ox 100% on R/A; tr5 23:45 BP 138 / 87; Pulse 62; Resp 15; Pulse Ox 100% on R/A; tr5 05/03 00:45 BP 145 / 85; Pulse 71; Resp 18; Temp 98.2(O); Pulse Ox 100% ; tr5 01:52 BP 142 / 85; Pulse 60; Resp 16; Temp 98.2(O); Pulse Ox 100% on R/A; tr5 05/02 21:52 Body Mass Index 27.46 (72.57 kg, 162.56 cm) fc MDM: 05/02 22:40 Patient medically screened. [facility] 05/03 03:37 Data reviewed: vital signs, nurses notes, lab test result(s), radiologic studies. kdr Counseling: I had a detailed discussion with the patient and/or guardian regarding: the historical points, exam findings, and any diagnostic results supporting the discharge/admit diagnosis, lab results, radiology results, the need for further work-up and treatment in the hospital. Physician consultation: Edwardo Angel MD and will see patient in inpatient room, tomorrow. 05/02 22:10 Order name: Basic Metabolic Panel; Complete Time: 02:02 [facility] 05/02 22:10 Order name: CBC with Diff; Complete Time: 02:02 [facility] 05/02 22:10 Order name: LFT's; Complete Time: 02:02 [facility] 05/02 22:10 Order name: Magnesium; Complete Time: 02:02 [facility] 05/02 22:10 Order name: NT PRO-BNP; Complete Time: 02:02 [facility] 05/02 22:10 Order name: PT-INR [facility] 05/02 22:10 Order name: Troponin (emerg Dept Use Only); Complete Time: 02:02 [facility] 05/02 23:15 Order name: Basic Metabolic Panel [facility] 05/02 23:15 Order name: Basic Metabolic Panel [facility] 05/02 23:15 Order name: CBC with Automated Diff [facility] 05/02 23:15 Order name: CBC with Automated Diff [facility] 05/02 23:15 Order name: Troponin I [facility] 05/02 23:15 Order name: Troponin I [facility] 05/02 23:15 Order name: Troponin I [facility] 05/02 22:10 Order name: XRAY Chest (1 view) [facility] 05/02 22:10 Order name: EKG; Complete Time: 22:12 [facility] 05/02 22:10 Order name: Cardiac monitoring; Complete Time: 22:14 [facility] 05/02 22:10 Order name: EKG - Nurse/Tech; Complete Time: 22:15 [facility] 05/02 22:10 Order name: IV Saline Lock; Complete Time: 22:30 [facility] 05/02 22:10 Order name: Labs collected and sent; Complete Time: 22:30 [facility] 05/02 22:10 Order name: O2 Per Protocol; Complete Time: 22:15 [facility] 05/02 22:10 Order name: O2 Sat Monitoring; Complete Time: 22:15 [facility] 05/02 22:32 Order name: CT Head Brain wo Cont kdr 05/02 23:15 Order name: CONS Physician Consult EDMS 05/02 23:15 Order name: Consistent Carb (ADA) 1800 Luis EDMS 05/02 23:15 Order name: EKG Electrocardiogram EDMS 05/02 23:15 Order name: EKG Electrocardiogram EDMS 05/02 23:15 Order name: EKG Electrocardiogram EDMS 05/02 23:15 Order name: EKG Electrocardiogram EDMS Administered Medications: 05/02 22:44 Drug: Zofran 4 mg Route: IVP; Site: right wrist; tr5 Disposition: 05/02/19 22:40 Hospitalization ordered by Edwardo Angel for Observation. Preliminary diagnosis are Syncope and collapse, Altered mental status, unspecified, Hypotension, Bradycardia, unspecified. - Bed requested for Telemetry/MedSurg (observation). - Status is Observation. tr5 - Condition is Fair. - Problem is new. - Symptoms have improved. UTI on Admission? No Signatures: Dispatcher [employer] EDAL Vick Rader MD MD kdr Sarah Luna RN RN fc Shanti Ramsey RN RN Bernard Glover RN RN tr5 Corrections: (The following items were deleted from the chart) 05/03 00:34 05/02 22:40 Hospitalization Ordered by Edwardo Angel MD for Observation. Preliminary cg diagnosis is Syncope and collapse; Altered mental status, unspecified; Hypotension; Bradycardia, unspecified. Bed requested for Telemetry/MedSurg (observation). Status is Observation. Condition is Fair. Problem is new. Symptoms have improved. UTI on Admission? No. kdr 05/03 02:07 00:34 05/02/2019 22:40 Hospitalization Ordered by Edwardo Angel MD for Observation. tr5 Preliminary diagnosis is Syncope and collapse; Altered mental status, unspecified; Hypotension; Bradycardia, unspecified. Bed requested for Telemetry/MedSurg (observation). Status is Observation. Condition is Fair. Problem is new. Symptoms have improved. UTI on Admission? No. cg
--- NOTE | 2019-05-02 22:40 | ER ---
Nurse's Notes [facility] Name: Skylar Grossman Age: 83 yrs Sex: Female : 1935 Arrival Date: 05/02/2019 Time: 22:00 Bed 4 Private MD: Diagnosis: Syncope and collapse;Altered mental status, unspecified;Hypotension;Bradycardia, unspecified Presentation: 05/02 21:52 Presenting complaint: EMS states: that pt was assisted up to w/c to go to bathroom by fc family and became unresponsive. Her bp and heart rate were low. Transition of care: patient was not received from another setting of care. Onset of symptoms was May 02, 2019. Risk Assessment: Do you want to hurt yourself or someone else? Patient reports no desire to harm self or others. Initial Sepsis Screen: Does the patient meet any 2 criteria? No. Patient's initial sepsis screen is negative. Does the patient have a suspected source of infection? No. Patient's initial sepsis screen is negative. Care prior to arrival: Medication(s) given: Normal saline infusion, 900 ml IV initiated. 18 GA, in the right forearm, Glucose check: 167. 21:52 Method Of Arrival: EMS: [facility] 21:52 Acuity: FARIDA 3 fc Historical: - Allergies: 22:11 Codeine (Upset stomach); tr5 22:11 Morphine; tr5 - Home Meds: 22:11 amitriptyline 100 mg Oral tab 1 tab nightly [Active]; Bystolic 10 mg Oral tab once tr5 daily [Active]; Flomax 0.4 mg Oral cp24 1 cap once daily [Active]; Humalog Sub-Q [Active]; Lantus 100 unit/mL Sub-Q soln 20 unit nightly [Active]; lisinopril 40 mg Oral tab 1 tab once daily [Active]; melatonin 3 mg Oral tab nightly [Active]; metformin 500 mg Oral tab 1 tab 2 times per day [Active]; Neurontin 300 mg Oral cap 1 cap 3 times per day [Active]; Plavix 75 mg Oral tab 1 tab once daily [Active]; Prilosec 20 mg Oral cpDR 1 cap once daily [Active]; Protonix 40 mg Oral TbEC 1 tab once daily [Active]; simvastatin 20 mg Oral tab 1 tab nightly [Active]; - PMHx: 22:11 CVA; Depression; Diabetes - IDDM; GERD; High Cholesterol; Hypertension; tr5 - Immunization history:: Last tetanus immunization: up to date. - Social history:: Smoking status: Patient/guardian denies using tobacco, Patient/guardian denies using alcohol, street drugs. - Ebola Screening: : Patient negative for fever greater than or equal to 101.5 degrees Fahrenheit, and additional compatible Ebola Virus Disease symptoms Patient denies exposure to infectious person Patient denies travel to an Ebola-affected area in the 21 days before illness onset. Screenin:52 Abuse screen: Denies threats or abuse. Nutritional screening: No deficits noted. fc Tuberculosis screening: No symptoms or risk factors identified. 05/03 02:05 Fall Risk None identified. tr5 Assessment: 05/02 22:08 General: Appears uncomfortable, Behavior is calm, cooperative. Pain: Denies pain. tr5 Neuro: Level of Consciousness is awake, alert, obeys commands, Oriented to person, place, Career Services Director are equal bilaterally Moves all extremities. Weakness Reports dizziness. Cardiovascular: Heart tones present Bruits absent Capillary refill < 3 seconds Pulses are all present. Edema is absent. Respiratory: Airway is patent Respiratory effort is even, unlabored, Respiratory pattern is regular, symmetrical, Breath sounds are clear bilaterally. GI: No signs and/or symptoms were reported involving the gastrointestinal system. : No signs and/or symptoms were reported regarding the genitourinary system. EENT: No signs and/or symptoms were reported regarding the EENT system. Derm: Skin is intact, Skin is dry. Musculoskeletal: Capillary refill < 3 seconds, Range of motion: intact in all extremities. 23:00 Reassessment: Patient appears in no apparent distress at this time. Patient and/or tr5 family updated on plan of care and expected duration. Pain level reassessed. 05/03 00:00 Reassessment: Patient and/or family updated on plan of care and expected duration. Pain tr5 level reassessed. Patient is alert, oriented x 3, equal unlabored respirations, skin warm/dry/pink. Patient states feeling better. 01:00 Reassessment: Patient and/or family updated on plan of care and expected duration. Pain tr5 level reassessed. Patient is alert, oriented x 3, equal unlabored respirations, skin warm/dry/pink. Patient denies pain at this time. Patient states feeling better. Vital Signs: 05/02 21:52 BP 145 / 75; Pulse 60; Resp 18; Temp 97.6(O); Pulse Ox 95% on R/A; Weight 72.57 kg (R); fc Height 5 ft. 4 in. (162.56 cm) (R); Pain 2/10; 22:45 BP 149 / 125; Pulse 58; Resp 16; Pulse Ox 100% on R/A; tr5 23:45 BP 138 / 87; Pulse 62; Resp 15; Pulse Ox 100% on R/A; tr5 05/03 00:45 BP 145 / 85; Pulse 71; Resp 18; Temp 98.2(O); Pulse Ox 100% ; tr5 01:52 BP 142 / 85; Pulse 60; Resp 16; Temp 98.2(O); Pulse Ox 100% on R/A; tr5 05/02 21:52 Body Mass Index 27.46 (72.57 kg, 162.56 cm) fc ED Course: 05/02 21:52 Arm band placed on Patient placed in an exam room, in a hallway bed, in waiting room, fc on a stretcher, on oxygen. 21:52 Patient has correct armband on for positive identification. Placed in gown. Bed in low fc position. Call light in reach. Side rails up X2. biometric screener on. Pulse ox on. NIBP on. 21:52 Maintain EMS IV. Dressing intact. Good blood return noted. Site clean \T\ dry. Gauge \T\ fc site: 18 gauge to right forearm. 22:00 Patient arrived in ED. fc 22:06 Triage completed. fc 22:06 Bernard Glover, JOSE EDUARDO is Primary Nurse. tr5 22:08 Vick Rader MD is Attending Physician. kdr 22:30 Initial lab(s) drawn, by me, sent to lab. tr5 22:37 XRAY Chest (1 view) In Process Unspecified. EDMS 22:39 Edwardo Angel MD is Hospitalizing Provider. kdr 05/03 00:38 CT Head Brain wo Cont In Process Unspecified. EDMS 02:04 No provider procedures requiring assistance completed. Patient admitted, IV remains in tr5 place. Administered Medications: 08/22 22:44 Drug: Zofran 4 mg Route: IVP; Site: right wrist; tr5 Outcome: 22:40 Decision to Hospitalize by Provider. alfred 05/03 02:04 Admitted to Med/surg accompanied by tech, via stretcher, with chart, Report called to melody Chun RN Condition: stable Instructed on the need for admit. 02:07 Patient left the ED. tr5 Signatures: Dispatcher [employer] EDVick Vernon MD MD kdr Chretien, Felicia, JOSE EDUARDO RN Bernard Pope RN RN trAmelie
[2019-05-02 22:41] LABS: Absolute Lymphocytes (CBC) 2.9 K/uL (0.7-4.9); Basophils % 0.3 % (0-1.3); Hematocrit 30.9 % (36.0-45.0); Lymphocytes % 18.2 % (15.3-44.8); MPV 7.9 fL (7.6-11.3)
[2019-05-02] MEDS ORDERED: ONDANSETRON 4 MG/2 ML VIAL ONE (22:41)
[2019-05-02 22:57] LABS: ALT/SGPT 16 U/L (12-78); AST/SGOT 12 U/L (15-37); Albumin 3.5 g/dL (3.4-5.0); Alkaline Phosphatase 92 U/L (45-117); BUN Blood Urea Nitrogen 21 mg/dL (7-18); Bicarbonate 22 mmol/L (21-32); Bilirubin Direct < 0.1 mg/dL (0-0.2); Bilirubin Total 0.2 mg/dL (0.2-1.0); Glucose Level 127 mg/dL (74-106); Magnesium 2.2 mg/dL (1.8-2.4); NT PRO-BNP 195 pg/mL (<450); Protein, Total 6.9 g/dL (6.4-8.2); Sodium Level 133 mmol/L (136-145); Troponin (Emerg Dept Use Only) < 0.02 ng/mL (0.0-0.045)
[2019-05-02] MEDS ORDERED: ONDANSETRON 4 MG/2 ML VIAL IV PRN (23:10)
[2019-05-02] MEDS ORDERED: ACETAMINOPHEN 500 MG TAB PO PRN (23:10)
[2019-05-03 02:30] VITALS: BMI 30.5
[2019-05-03] MEDS ORDERED: D50W 25 GM/50 ML SYRINGE IV PRN (02:32)
[2019-05-03] MEDS ORDERED: GLUCAGON 1 MG/VIAL IM PRN (02:32)
[2019-05-03 03:07] LABS: Protime INR 0.97
[2019-05-03] MEDS ORDERED: cloNIDine HCl 0.1 MG TAB PO PRN (06:34)
[2019-05-03 07:07] LABS: Potassium 4.5 mmol/L (3.5-5.1)
--- NOTE | 2019-05-03 07:13 | EKG ---
Test Date: 2019-05-02 Test Time: 22:03:03 Patrol Conductor: KELVIN MEASUREMENT RESULTS: Intervals: Rate: 59 IN: 250 QRSD: 154 QT: 522 QTc: 516 [place]: P: 72 IN: 250 QRS: 32 T: 18 INTERPRETIVE STATEMENTS: Sinus bradycardia with 1st degree AV block Right bundle branch block Abnormal ECG Compared to ECG 01/28/2019 02:19:28 Sinus rhythm no longer present Electronically Signed On 05-03-19 07:13:11 CDT by Chintan Lopez
[2019-05-03 07:14] LABS: Absolute Lymphocytes (CBC) 1.7 K/uL (0.7-4.9); Basophils % 0.3 % (0-1.3); Hematocrit 28.7 % (36.0-45.0); Lymphocytes % 13.2 % (15.3-44.8); MPV 8.1 fL (7.6-11.3); RBC Red Blood Cell Count 3.75 M/uL (3.86-4.86)
[2019-05-03] MEDS: INSULIN -REGULAR HUMAN 50 UNIT/0.5 ML ML SQ SCH ×3 (07:30→16:08)
--- NOTE | 2019-05-03 07:53 | RAD REPORT ---
EXAM DESCRIPTION: [facility] Single View05/02/2019 10:38 pm CLINICAL HISTORY: Shortness of breath COMPARISON: January 2019 FINDINGS: The lungs appear clear of acute infiltrate. The heart is mildly enlarged. The aorta is to rtuous/ectatic IMPRESSION: No acute abnormalities displayed
[2019-05-03] MEDS ORDERED: HOME MED 1 EA UNK (Clopidogrel Bisulfate [Plavix*] 75 MG) PO SCH (09:00)
[2019-05-03] MEDS: HOME MED 1 EA UNK (Gabapentin [Gabapentin] 300 MG) PO SCH ×2 (09:00→14:00)
[2019-05-03] MEDS ORDERED: METFORMIN 500 MG PO SCH (09:00)
[2019-05-03] MEDS ORDERED: ASPIRIN EC 81 MG TAB PO SCH (09:00)
[2019-05-03] MEDS ORDERED: LISINOPRIL 20 MG TAB PO SCH (09:00)
[2019-05-03] MEDS ORDERED: FLUOXETINE HCL 20 MG PO SCH (09:00)
[2019-05-03] MEDS ORDERED: HOME MED 1 EA UNK (Omeprazole [Omeprazole] 20 MG) PO SCH (09:00)
--- NOTE | 2019-05-03 09:49 | RAD REPORT ---
EXAM DESCRIPTION: CT - Head Brain Wo Cont - 05/03/2019 2:05 am CLINICAL HISTORY: 83 years Female syncope, hypotension COMPARISON: 01/28/2019. TECHNIQUE: Contiguous axial CT images obtained through the brain without IV contrast. This exam was performed according to our department optimization program which includes automated exp osure control, adjustment of the mA and/or kv according to patient size and/or use of iterative recon struction technique. FINDINGS: Old ryne holes in the right frontal skull. The ventricles and sulci are prominent consistent with atrophic changes. Microvascular ischemic changes. Old lacunar infarcts in the right basal ganglia region. Old lacunar infarct in the left delroy. No mass lesions. No acute hemorrhage. Atherosclerotic calcifications. No fluid or significant mucosal thickening in the visualized paranasal sinuses. No depressed calvarial fractures. IMPRESSION: Atrophy and microvascular ischemic changes. Old lacunar infarcts. No acute intracrania l abnormality is identified. Electronically signed by: Rogelio Stock MD 05/03/2019 12:44 AM CDT Due to temporary technical issues with the PACS/Fluency reporting system, reports are being signed by the in house radiologist as a courtesy to ensure prompt reporting. The interpreting radiologist is f ully responsible for the content of the report.
[2019-05-03 10:40] VITALS: O2SAT 93
--- NOTE | 2019-05-03 13:20 | P.SSS ---
Patient History Date of Service: 05/03/19 Reason for admission: SYNCOPE History of Present Illness: MS. MCCAIN HAD SYNCOPE AT HOME AFTER TRANSFERING FROM BED. SHE IS HERE IN HOSPITAL NOW. SHE IS ASYMPTOMATIC AT HER BASELINE. AT BASELINE SHE DOES NOT WALK. SHE GOES FROM BED TO WHEELCHAIR SINCE MULTIPLE STROKES SHE HAD. Allergies codeine [Codeine] Adverse Reaction (Intermediate, Verified 01/28/19 06:41) HEADACHE/NAUSEATED meperidine HCl [From Demerol] Adverse Reaction (Intermediate, Verified 01/28/19 06:41) DIZZINESS/NAUSEA Home Medications: Amitriptyline HCl 100 mg PO BEDTIME 05/03/19 Clonidine HCl [Catapres] 0.1 mg PO TIDP PRN 05/03/19 Clopidogrel Bisulfate [Plavix*] 75 mg PO DAILY 05/03/19 Fluoxetine HCl [Prozac] 20 mg PO DAILY 05/03/19 Gabapentin 300 mg PO TID 05/03/19 Insulin Glargine,Hum.rec.anlog [Lantus Solostar] 20 units SQ BEDTIME 05/03/19 Lisinopril [Zestril] 40 mg PO DAILY 05/03/19 Melatonin [Melatonin*] 3 mg PO BEDTIME 05/03/19 Metformin ER [Glucophage ER*] 500 mg PO BID 05/03/19 Nebivolol HCl [Bystolic] 10 mg PO DAILY 05/03/19 Omeprazole 20 mg PO DAILY 05/03/19 Pantoprazole [Protonix Tab*] 40 mg PO BEDTIME 05/03/19 Simvastatin 20 mg PO BEDTIME 05/03/19 Tamsulosin [Flomax*] 0.4 mg PO BEDTIME 05/03/19 - Past Medical/Surgical History Has patient received pneumonia vaccine in the past: Yes Diabetic: Yes -: GERD -: Anxiety -: Hypertension -: CVA -: Depression -: IDDM -: Hyperlipidemia -: Cholecystectomy -: Hysterectomy -: Appendectomy - Family History Mother -: Hypertension Father -: Hypertension - Social History Smoking Status: Never smoker Alcohol use: No CD- Drugs: No Caffeine use: Yes Place of Residence: Home Review of Systems 10-point ROS is otherwise unremarkable Neurological: Incoordination Physical Examination - Vital Signs Temperature: 97.0 F Blood Pressure: 141/62 Pulse: 56 Respirations: 16 Pulse Ox (%): 95 - Physical Exam General: Alert, Mild distress, Obese HEENT: Atraumatic, PERRLA, Mucous membr. moist/pink, EOMI, Sclerae nonicteric Neck: Supple, 2+ carotid pulse no bruit, No LAD, Without JVD or thyroid abnormality Respiratory: Clear to auscultation bilaterally, Normal air movement Cardiovascular: Regular rate/rhythm, Normal S1 S2 Gastrointestinal: Normal bowel sounds, No tenderness Musculoskeletal: No tenderness Integumentary: No rashes Neurological: Normal speech, Abnormal gait (NO CHANGES.), Abnormal tone Lymphatics: No axilla or inguinal lymphadenopathy - Studies Laboratory Data (last 24 hrs) 05/02/19 22:27: WBC 15.7 H, Hgb 9.9 L, Hct 30.9 L, Plt Count 271 05/02/19 22:27: Sodium 133 L, Potassium 4.0, BUN 21 H, Creatinine 1.09, Glucose 127 H, Magnesium 2.2, Total Bilirubin 0.2, AST 12 L, ALT 16, Alkaline Phosphatase 92 - Diagnosis (Problem(s)) (1) Orthostatic hypotension Current Visit: Yes Status: Chronic Plan: THIS HAS HAPPENED SO MANY TIMES BEFORE. SHE HAS VERY LABILE HTN. SHE NEEDS TO BE ON MULTIPLE MEDS FOR BP. WE WILL STOP FLOMAX SHE MAY BE ABLE TO DO OKAY WITHOUT. IT WAS GIVEN TO HER BY UROLOGIST FOR BLADDER OUTLET OBST OR STONES. SHE IS STABLE TO GO HOME. SHE HAS TRIED HOME HEALTH PT WITHOUT MUCH BENEFIT. - Disposition Disposition: ROUTINE DISCHARGE
--- NOTE | 2019-05-03 13:45 | EKG ---
Test Date: 2019-05-03 Test Time: 07:56:07 Product Distribution Specialist: SHAWN MEASUREMENT RESULTS: Intervals: Rate: 53 DE: 260 QRSD: 146 QT: 530 QTc: 497 [place]: P: 64 DE: 260 QRS: 40 T: 17 INTERPRETIVE STATEMENTS: Sinus bradycardia with a blocked PAC with 1st degree AV block Right bundle branch block Abnormal ECG Compared to ECG 05/02/2019 22:03:03 A blocked PAC is now present Electronically Signed On 05-03-19 13:44:50 CDT by Anselmo Caballero
--- NOTE | 2019-05-03 14:35 | CON ---
Date of Consultation: 05/03/[address] Angel's service on 05/03/2019. Reason For Consultation: Syncope. History Of Present Illness: Ms. García is an 83-year-old woman who has multiple past medical issue s including history of stroke, depression, diabetes, gastroesophageal reflux disease, hypertension, a nd dyslipidemia. She did not have any recollection of what happened, but apparently her family noted that she had an episode of syncope. She, when I saw her, did not report any chest pain to me. She was back to herself. Denied any nausea, vomiting, diaphoresis, PND, orthopnea, pedal edema, or palpi tation. Denied any fever or chills. Allergies: INCLUDE CODEINE AND DEMEROL. Review of Systems: Negative. Social History: Negative. Family History: Noncontributory. Medications: Include Elavil, lisinopril, metformin, Flomax, Zocor, insulin, Neurontin, Plavix, cloni dine, Protonix, and Bystolic. Physical Examination: General: She was pleasant, alert, oriented x3. Vital Signs: Stable. Afebrile. Sinus rhythm. HEENT: Negative. Neck: Supple. No bruit. Chest: Clear to auscultation and percussion. Cardiac: Revealed a regular rhythm and rate with an aortic sclerosis, murmur. No gallops or rubs. Abdomen: Benign. Extremities: Revealed no clubbing, cyanosis, or edema. Skin: Dry and intact. Neurological: She was nonfocal. Vascular: Pulses were present bilaterally distally. Diagnostic Data: She had a hemoglobin of 9.2. Her white count was 12,000. Chest x-ray was negative . EKG showed right bundle-branch block. Echocardiogram from January 2019 was normal. Impression And Plan: 1.Syncope, most likely secondary to orthostatic hypotension. 2.History of cerebrovascular accident. 3.History of depression. 4.History of diabetes with neuropathy. 5.Gastroesophageal reflux disease. 6.Dyslipidemia, well controlled. 7.Hypertension, well controlled. 8.Anemia. 9.Elevated white count. 10.Abnormal EKG with right bundle-branch block. I do not think Ms. García needs any extensive car diac workup. I think we need to adjust her medication. I think the Flomax may be contributing great ly to her orthostatic hypotension along with her lisinopril, clonidine, and Bystolic. I am comfortab le with her going home. I will discuss her case further with Dr. Angel. TRACE/KARISSA Voice ID: [id number] Report ID: [id number]
[2019-05-03 17:01] VITALS: BP 150/80
[2019-05-03 17:04] VITALS: TEMP 97.3
[2019-05-03] MEDS ORDERED: HOME MED 1 EA UNK (Amitriptyline Hcl [Amitriptyline Hcl] 100 MG) PO SCH (21:00)
[2019-05-03] MEDS ORDERED: HOME MED 1 EA UNK (Simvastatin [Simvastatin] 20 MG) PO SCH (21:00)
[2019-05-03] MEDS ORDERED: MELATONIN 3 MG PO SCH (21:00)
[2019-05-03] MEDS ORDERED: INSULIN GLARGINE HUM REC ANLOG 20 UNIT SQ SCH (21:00)
[2019-05-03] MEDS ORDERED: HOME MED 1 EA UNK (Tamsulosin [Flomax*] 0.4 MG) PO SCH (21:00)
== END 2019-05-03 17:24 | disposition home health service (06) ==
LOC: ER 21:54 → ERHOLD 05-03 00:37 → INTOOBSV 05-03 00:37 → OBSVTOIN 05-03 00:37 → 2ND 05-03 00:49
PROVIDERS: ADMIT Internal Medicine; ATTEND Internal Medicine
DX: I95.1 Orthostatic hypotension (principal); I45.10 Unspecified right bundle-branch block; I10 Essential (primary) hypertension; E66.9 Obesity, unspecified; E11.40 Type 2 diabetes mellitus with diabetic neuropathy, unspecified; K21.9 Gastro-esophageal reflux disease without esophagitis; E78.5 Hyperlipidemia, unspecified; D72.829 Elevated white blood cell count, unspecified; Z68.30 Body mass index [BMI] 30.0-30.9, adult; Z79.4 Long term (current) use of insulin; Z88.6 Allergy status to analgesic agent; Z86.73 Personal history of transient ischemic attack (TIA), and cerebral infarction without residual deficits
CPT/HCPCS: 93005 ×2; 85025 ×2; 80048 ×2; 36415; 83735; 85610; 82962 ×3; 80076; 84484 ×3; 83880; 70450; 71045; 96374; 99285; J2405; G0378 ×2

== ENCOUNTER 2019-07-23 15:07 | Inpatient (IN) | payer OTHER, MEDICARE ==
[2019-07-23] MEDS ORDERED: NA CHLORIDE 0.9% 500 ML ONE (15:13)
[2019-07-23] MEDS ORDERED: ONDANSETRON 4 MG/2 ML VIAL ONE (15:29)
--- NOTE | 2019-07-23 15:44 | RAD REPORT ---
EXAM DESCRIPTION: CT - Head Brain Wo Cont - 07/23/2019 3:38 pm CLINICAL HISTORY: AMS Headache, drowsiness COMPARISON: Head Brain Wo Cont dated 05/02/2019; Head Brain Wo Cont dated 01/28/2019 TECHNIQUE: All CT scans are performed using dose optimization technique as appropriate and may inclu de automated exposure control or mA/KV adjustment according to patient size. FINDINGS: No intracranial hemorrhage, hydrocephalus or extra-axial fluid collection.Moderate brain a trophy.No areas of brain edema or evidence of midline shift. The paranasal sinuses and mastoids are clear. Right frontal craniotomy. Vertebral arteries are calcif ied. IMPRESSION: No acute intracranial abnormality.
[2019-07-23 15:48] LABS: Basophils % 0.3 % (0-1.3); Hematocrit 35.4 % (36.0-45.0); Lymphocytes % 44.4 % (15.3-44.8); MPV 7.9 fL (7.6-11.3); RBC Red Blood Cell Count 4.73 M/uL (3.86-4.86)
[2019-07-23 15:57] LABS: Protime INR 0.96
--- NOTE | 2019-07-23 15:58 | EKG ---
Test Date: 2019-07-23 Test Time: 15:04:17 Net Solutions Architect: REINA MEASUREMENT RESULTS: Intervals: Rate: 71 OR: 204 QRSD: 142 QT: 474 QTc: 515 [place]: P: 78 OR: 204 QRS: 57 T: 29 INTERPRETIVE STATEMENTS: Normal sinus rhythm with sinus arrhythmia Right bundle branch block Abnormal ECG Compared to ECG 05/03/2019 07:56:07 Sinus bradycardia no longer present Atrial premature complex(es) no longer present First degree AV block no longer present Electronically Signed On 07-23-19 15:58:04 AIR LIAISON AND SPECIAL STAFF by Chintan Lopez
[2019-07-23 16:00] LABS: ALT/SGPT 19 U/L (12-78); AST/SGOT 14 U/L (15-37); Albumin 4.1 g/dL (3.4-5.0); Alkaline Phosphatase 176 U/L (45-117); BUN Blood Urea Nitrogen 22 mg/dL (7-18); Bicarbonate 23 mmol/L (21-32); Bilirubin Direct 0.1 mg/dL (0-0.2); Bilirubin Total 0.3 mg/dL (0.2-1.0); Glucose Level 165 mg/dL (74-106); Lipase 106 U/L (73-393); Magnesium 2.5 mg/dL (1.8-2.4); Protein, Total 7.8 g/dL (6.4-8.2); Sodium Level 132 mmol/L (136-145); Troponin (Emerg Dept Use Only) < 0.02 ng/mL (0.0-0.045)
--- NOTE | 2019-07-23 16:22 | RAD REPORT ---
EXAM DESCRIPTION: CTAbdomen Pelvis W Contrast - 07/23/2019 4:15 pm CLINICAL HISTORY: Abdominal pain. ABD PAIN COMPARISON: No comparisons TECHNIQUE: Biphasic CT imaging of the abdomen and pelvis was performed with 100 ml non-ionic IV cont rast. All CT scans are performed using dose optimization technique as appropriate and may include automated exposure control or mA/KV adjustment according to patient size. FINDINGS: The lung bases are clear.Cholecystectomy. The liver, spleen, pancreas, adrenal glands and kidneys are within normal limits. No bowel obstruction, free air, free fluid or abscess. Severe retention of stool is present throughou t the colon which is quite dilated. Appendectomy. No evidence of significant lymphadenopathy. Moderate lumbosacral degenerative changes. IMPRESSION: Quite severe retention of stool throughout the colon with significant distention.
[2019-07-23 17:09] LABS: Barbiturates NEGATIVE (NEGATIVE); Benzodiazepines NEGATIVE (NEGATIVE); Cocaine NEGATIVE (NEGATIVE); METHAMPHETAM NEGATIVE (NEGATIVE); Methadone NEGATIVE (NEGATIVE); Opiates NEGATIVE (NEGATIVE); Phencyclidine NEGATIVE (NEGATIVE); THC Cannibis NEGATIVE (NEGATIVE)
[2019-07-23] MEDS ORDERED: NA CHLORIDE 0.9% 1,000 ML ONE (17:12)
--- NOTE | 2019-07-23 17:13 | ER ---
Nurse's Notes [facility] [place] Name: Skylar Grossman Age: 84 yrs Sex: Female : 1935 Arrival Date: 07/23/2019 Time: 15:05 Bed 4 Private MD: Edwardo Angel V Diagnosis: Vagal Response;Syncope and collapse;Fecal impaction;Dehydration;Hypotension, unspecified Presentation: 07/23 15:05 Presenting complaint: EMS states: PT UNRESPONSIVE WITH SNORING RESPIRATIONS ON SCENE. bp Transition of care: patient was not received from another setting of care. Onset of symptoms was July 23, 2019 at 14:30. Risk Assessment: Do you want to hurt yourself or someone else? Patient reports no desire to harm self or others. Initial Sepsis Screen: Does the patient meet any 2 criteria? Systolic BP < 90 mmHg. Altered Mental Status. Yes Does the patient have a suspected source of infection? No. Patient's initial sepsis screen is negative. Care prior to arrival: Glucose check: 146. 15:05 Method Of Arrival: EMS: [facility] bp 15:05 Acuity: FARIDA 2 bp Triage Assessment: 15:11 General: Appears distressed, comfortable, obese, Behavior is listless. Pain: Denies bp pain. EENT: No deficits noted. Neuro: Level of Consciousness is obeys commands, lethargic, Oriented to person, place, time, situation, Burrer Hand are equal bilaterally Moves all extremities. Cardiovascular: Rhythm is sinus rhythm. Respiratory: Airway is patent Respiratory effort is even, unlabored, shallow. GI: Abdomen is non-distended, obese. : No signs and/or symptoms were reported regarding the genitourinary system. Derm: No deficits noted. Musculoskeletal: Circulation, motion, and sensation intact. Range of motion: intact in all extremities. Historical: - Allergies: 15:11 Codeine (Upset stomach); bp 15:11 Morphine; bp - Home Meds: 15:11 amitriptyline 100 mg Oral tab 1 tab nightly [Active]; Neurontin 300 mg Oral cap 1 cap 3 bp times per day [Active]; Prozac 20 mg Oral cap 1 cap once daily [Active]; lisinopril 40 mg Oral tab 1 tab once daily [Active]; Lantus 100 unit/mL Sub-Q soln 20 unit nightly [Active]; Prilosec 20 mg Oral cpDR 1 cap once daily [Active]; Flomax 0.4 mg Oral cp24 1 cap once daily [Active]; Bystolic 10 mg Oral tab once daily [Active]; simvastatin 20 mg Oral tab 1 tab once daily [Active]; metformin 500 mg Oral tab 1 tab 2 times per day [Active]; Plavix 75 mg Oral tab 1 tab once daily [Active]; clonidine HCl 0.1 mg Oral tab 1 tab 3 times per day [Active]; Protonix 40 mg Oral TbEC 1 tab once daily [Active]; melatonin 3 mg Oral tab nightly [Active]; Humalog Sub-Q [Active]; - PMHx: 15:11 CVA; Depression; Diabetes - IDDM; GERD; High Cholesterol; Hypertension; bp - Immunization history:: Adult Immunizations up to date. - Social history:: Smoking status: Patient/guardian denies using tobacco. - Ebola Screening: : No symptoms or risks identified at this time. - Family history:: not pertinent. - Hospitalizations: : No recent hospitalization is reported. Screenin:15 Abuse screen: Denies threats or abuse. Denies injuries from another. Nutritional bp screening: No deficits noted. Tuberculosis screening: No symptoms or risk factors identified. Fall Risk None identified. Assessment: 15:15 General: SEE TRIAGE NOTE. bp 16:07 Reassessment: PT TO CT WITH MACHINE II CUTTER. bp 17:08 Reassessment: PT REMAINS HYPOTENSIVE, MD INFORMED. bp 19:40 Reassessment: Patient is alert, oriented x 3, equal unlabored respirations, skin bb warm/dry/pink. pt resting quietly, continues to have bowel movement, IV sites intact, patent with fluids infusing, abdomen round, soft to palpation, bowel sounds x 4 quads, family at bedside. 20:07 Reassessment: Patient is alert, oriented x 3, equal unlabored respirations, skin bb warm/dry/pink. pt with copious amounts of liquid brown stool, pt cleaned on incontinence, linens changed, IV sites intact, report called to Leny WHITT for ICU room 2. Vital Signs: 15:11 BP 71 / 59; Pulse 73; Resp 17; Temp 97; Pulse Ox 95% ; Weight 90.72 kg; bp 15:21 BP 96 / 54; Pulse 97; Resp 18 S; iw 15:30 BP 99 / 57; Pulse 85; Resp 29; Pulse Ox 98% ; bp 16:00 BP 93 / 54; Pulse 69; Resp 24; Pulse Ox 94% ; bp 17:01 BP 80 / 52; Pulse 59; Resp 20; Pulse Ox 98% ; bp 17:46 BP 73 / 51; Pulse 52; Resp 17; Pulse Ox 99% ; bp 18:38 BP 75 / 60; Pulse 65; Resp 15; Pulse Ox 95% ; bp 19:32 BP 105 / 83; Pulse 63; Resp 16 S; Temp 97.9(O); Pulse Ox 97% on R/A; Pain 2/10; bb 20:09 BP 112 / 90; Pulse 66; Resp 18 S; Pulse Ox 95% on R/A; bb NIH Stroke Scale Scores: 15:11 NIHSS Score: 1 bp ED Course: 15:05 Patient arrived in ED. bp 15:05 Kareem Atkinson MD is Attending Physician. rn 15:07 Triage completed. bp 15:11 Arm band placed on. bp 15:15 Patient has correct armband on for positive identification. Placed in gown. Bed in low bp position. Call light in reach. Side rails up X2. 15:17 EKG done, by information technology advisor. reviewed by Kareem Atkinson MD. sm3 15:20 Faustino Garcia, RN is Primary Nurse. bp 15:21 Radiology exam delayed due to lab results not completed at this time. (BUN/Creatinine) kw1 IV insertion attempt and/or patient not having appropriate IV at this time. 15:25 First set of blood cultures drawn by me. aa5 15:25 Inserted saline lock: 22 gauge in right antecubital area, using aseptic technique. aa5 15:35 Second set of blood cultures drawn by me. aa5 15:35 Inserted saline lock: 20 gauge in left antecubital area, using aseptic technique. aa5 15:37 CT completed. Patient tolerated procedure well. Patient moved to CT via stretcher. nj Patient moved back from CT. 15:38 CT Head Brain wo Cont In Process Unspecified. EDMS 15:58 Edwardo Angel MD is Private Physician. am2 16:16 CT Abd/Pelvis - IV Contrast Only In Process Unspecified. EDMS 16:18 CT completed. Patient tolerated procedure well. Patient moved back from CT. kw1 16:49 Straight cath inserted, using sterile technique, 16 Fr. Specimen obtained. Returned aa5 clear yellow urine. Patient tolerated well. 17:12 Edwardo Angel MD is Hospitalizing Provider. rn 17:29 XRAY Chest (1 view) In Process Unspecified. EDMS 19:41 No provider procedures requiring assistance completed. Patient admitted, IV remains in bb place. 20:01 Notified ED physician of a critical lab result(s). lactate 3.3. fc Administered Medications: 15:25 Drug: NS 0.9% 500 ml Route: IV; Rate: bolus; Site: right antecubital; bp 18:15 Follow up: IV Status: Completed infusion; IV Intake: 500ml bp 15:25 Drug: Zofran 4 mg Route: IVP; Site: right antecubital; bp 15:44 Follow up: Response: Nausea is decreased bp 15:30 Drug: NS 0.9% 500 ml Route: IV; Rate: bolus; Site: right antecubital; bp 18:15 Follow up: IV Status: Completed infusion; IV Intake: 500ml bp 17:14 Drug: NS 0.9% 1000 ml Route: IV; Rate: 125 ml/hr; Site: right antecubital; bp 20:09 Follow up: IV Status: Infusion continued upon admission; IV Intake: 375ml bb Point of Care Testing: Blood Glucose: 15:06 Blood Glucose: 133 mg/dL; aa5 Ranges: Intake: 18:15 IV: 500ml; Total: 500ml. bp 18:15 IV: 500ml; Total: 1000ml. bp 20:09 IV: 375ml; Total: 1375ml. bb Outcome: 17:12 Decision to Hospitalize by Provider. rn 19:41 Instructed on the need for admit. bb 20:07 Admitted to ICU accompanied by nurse, family with patient, via stretcher, room 2, with bb chart, Report called to Leny WHITT 20:07 Condition: stable 20:50 Patient left the ED. bb NIH Stroke Scale - NIH Stroke Score Date: 07/23/2019 Time: 15:11 Total Score = 1 1a. Level of Consciousness (LOC) - 1(Not Alert) 1b. Level of Consciousness (LOC) (Year \T\ Age) - 0(Both) 1c. LOC Commands (Open \T\ Closes Eyes/Electrician Control Equipment) - 0(Both) 2. Best Gaze (Lateral Gaze Paresis) - 0(Normal) 3. Visual Field Loss - 0(No visual loss) 4. Facial Palsy - 0(Normal) 5a. Left Arm: Motor (10-second hold) - 0(No drift) 5b. Right Arm: Motor (10-second hold) - 0(No drift) 6a. Left Leg: Motor (5-second hold - always test supine) - 0(No drift) 6b. Right Leg: Motor (5-second hold - always test supine) - 0(No drift) 7. Limb Ataxia (finger/nose \T\ heel/eldridge - test with eyes open) - 0(Absent) 8. Sensory Loss (pinprick arms/legs/face) - 0(Normal) 9. Best Language: Aphasia (description/naming/reading) - 0(No aphasia) 10. Dysarthria (speech clarity - read or repeat words) - 0(Normal) 11. Extinction and Inattention (visual/tactile/auditory/spatial/personal) - 0(No abnormality) Initials: bp Signatures: Dispatcher [employer] EDMS Sarah Luna, RN JOSE EDUARDO fc Naomi Wall RN RN Sheridan Stafford RN RN iw Nieto, Roman, MD MD rn Calderon, Audri, RN RN aa5 Denny Syed Amanda am2 Peltier, Brian, RN RN bp Suzi Rey 1 Miranda Marley 3 Corrections: (The following items were deleted from the chart) 15:21 15:05 Initial Sepsis Screen: Does the patient meet any 2 criteria? Altered bp Mental Status. No. Patient's initial sepsis screen is negative. Does the patient have a suspected source of infection? No. Patient's initial sepsis screen is negative. bp 15:46 15:20 Inserted saline lock: 20 gauge intraosseous access bp aa5 16:09 15:21 BP 86 / 60; Pulse 95bpm; Resp 18bpm; Pulse Ox 96%; bp bp
--- NOTE | 2019-07-23 17:14 | EDPHYS ---
Physician Documentation [facility] Name: Skylar Grossman Age: 84 yrs Sex: Female : 1935 Arrival Date: 07/23/2019 Time: 15:05 Bed 4 Private MD: Edwardo Angel V ED Physician Kareem Atkinson HPI: 07/23 15:29 This 84 yrs old Female presents to ER via EMS with complaints of Altered rn Mental Status. 15:29 The patient presents with decreased mental status, decreased responsiveness. Onset: The rn symptoms/episode began/occurred at an unknown time. Possible causes: unknown. Current symptoms: In the emergency department the patient's symptoms have improved. It is unknown whether or not the patient has had similar symptoms in the past. Per EMS report, patient had decreased responsiveness, snoring, but slowly improving, now following all commands, just seems sleepy. Patient reports had headache earlier in AM, took Excedrin and melatonin. Possible syncopal episode at home. Patient knows where she is, and denies chest pain/sob/diarrhea. Reports some abd pain and nausea. . Historical: - Allergies: 15:11 Codeine (Upset stomach); bp 15:11 Morphine; bp - Home Meds: 15:11 amitriptyline 100 mg Oral tab 1 tab nightly [Active]; Neurontin 300 mg Oral cap 1 cap 3 bp times per day [Active]; Prozac 20 mg Oral cap 1 cap once daily [Active]; lisinopril 40 mg Oral tab 1 tab once daily [Active]; Lantus 100 unit/mL Sub-Q soln 20 unit nightly [Active]; Prilosec 20 mg Oral cpDR 1 cap once daily [Active]; Flomax 0.4 mg Oral cp24 1 cap once daily [Active]; Bystolic 10 mg Oral tab once daily [Active]; simvastatin 20 mg Oral tab 1 tab once daily [Active]; metformin 500 mg Oral tab 1 tab 2 times per day [Active]; Plavix 75 mg Oral tab 1 tab once daily [Active]; clonidine HCl 0.1 mg Oral tab 1 tab 3 times per day [Active]; Protonix 40 mg Oral TbEC 1 tab once daily [Active]; melatonin 3 mg Oral tab nightly [Active]; Humalog Sub-Q [Active]; - PMHx: 15:11 CVA; Depression; Diabetes - IDDM; GERD; High Cholesterol; Hypertension; bp - Immunization history:: Adult Immunizations up to date. - Social history:: Smoking status: Patient/guardian denies using tobacco. - Ebola Screening: : No symptoms or risks identified at this time. - Family history:: not pertinent. - Hospitalizations: : No recent hospitalization is reported. ROS: 15:29 Constitutional: Negative for fever, chills, and weight loss, Eyes: Negative for injury, rn pain, redness, and discharge, Neck: Negative for injury, pain, and swelling, Cardiovascular: Negative for chest pain, palpitations, and edema, Respiratory: Negative for shortness of breath, cough, wheezing, and pleuritic chest pain, Abdomen/GI: Negative for vomiting, diarrhea, and constipation, MS/Extremity: Negative for injury and deformity, Skin: Negative for injury, rash, and discoloration, Neuro: Negative for numbness, tingling, and seizure. Exam: 15:29 Constitutional: Patient awake, seems somnolent, but awakens to voice and follows rn commands Head/Face: Normocephalic, atraumatic. ENT: dry MM Neck: Trachea midline, no thyromegaly or masses palpated, and no cervical lymphadenopathy. Supple, full range of motion without nuchal rigidity, or vertebral point tenderness. No Meningismus. Cardiovascular: Regular rate and rhythm. No pulse deficits. Respiratory: No increased work of breathing, no retractions or nasal flaring. Abdomen/GI: soft, + diffuse abd tenderness, no rebound, no masses, no discoloration. MS/ Extremity: Pulses equal, no cyanosis. Neurovascular intact. Full, normal range of motion. Equal circumference. Neuro: Awake, somnolent, follows all commands, moves all 4 extremities with equal 4/5 strength, no drift, no slurred speech, normal vision. Vital Signs: 15:11 BP 71 / 59; Pulse 73; Resp 17; Temp 97; Pulse Ox 95% ; Weight 90.72 kg; bp 15:21 BP 96 / 54; Pulse 97; Resp 18 S; iw 15:30 BP 99 / 57; Pulse 85; Resp 29; Pulse Ox 98% ; bp 16:00 BP 93 / 54; Pulse 69; Resp 24; Pulse Ox 94% ; bp 17:01 BP 80 / 52; Pulse 59; Resp 20; Pulse Ox 98% ; bp 17:46 BP 73 / 51; Pulse 52; Resp 17; Pulse Ox 99% ; bp 18:38 BP 75 / 60; Pulse 65; Resp 15; Pulse Ox 95% ; bp 19:32 BP 105 / 83; Pulse 63; Resp 16 S; Temp 97.9(O); Pulse Ox 97% on R/A; Pain 2/10; bb 20:09 BP 112 / 90; Pulse 66; Resp 18 S; Pulse Ox 95% on R/A; bb NIH Stroke Scale Scores: 15:11 NIHSS Score: 1 bp MDM: 15:05 Patient medically screened. rn 15:56 ED course: No acute abnormality, other than change in sensorium, no focal findings on rn neuro exam. Borderline low BP, abd pain, and vomiting point to metabolic/infectious disturbance. . 17:08 Differential Diagnosis: CVA, electrolyte abnormality, overdose, pneumonia, sepsis, UTI, rn volume depletion, fecal impaction, stool burden, vagal syncope. Data reviewed: vital signs, nurses notes, lab test result(s), radiologic studies, CT scan. 17:09 Counseling: I had a detailed discussion with the patient and/or guardian regarding: the rn historical points, exam findings, and any diagnostic results supporting the discharge/admit diagnosis, lab results, radiology results, the need for further work-up and treatment in the hospital. Response to treatment: the patient's symptoms have mildly improved after treatment, and as a result, I will admit patient. Admission orders: after a detailed discussion of the patient's condition and case, the admit orders are written by me. ED course: Pt with severe colonic distension, no bowel obstruction, + dehydration. Consulted with Damaso Angel, states has hx of orthostatic hypotension. Family reports has had 3 episodes in past of syncope when feeling like needs to have bowel movement or on commode. Family reports was normal, then as she was seated, stated she needed to have bowel movement, stood up and passed out. Patient a lot more alert, but labile BP despite fluids. Will admit for GI/surgical consult, hydration, and evacuation.. 07/23 15:06 Order name: glucometer results - FOR PT WITH NO ID; Complete Time: 16:35 aa5 07/23 15:09 Order name: UDS; Complete Time: 17:49 rn 07/23 15:09 Order name: Basic Metabolic Panel; Complete Time: 16:25 rn 11 15:09 Order name: CBC with Diff; Complete Time: 15:57 rn 07/23 15:09 Order name: Hepatic Function; Complete Time: 16:25 rn 11 15:09 Order name: Lipase; Complete Time: 16:25 rn 11 15:09 Order name: Magnesium; Complete Time: 16:25 rn 07/23 15:09 Order name: Protime (+inr); Complete Time: 16:25 rn 07/23 15:09 Order name: Ptt, Activated; Complete Time: 16:25 rn 07/23 15:09 Order name: Troponin (emerg Dept Use Only); Complete Time: 16:25 rn 07/23 15:09 Order name: Urine Microscopic Only; Complete Time: 18:31 rn 07/23 15:09 Order name: Urine Culture 07/23 15:22 Order name: Lactate; Complete Time: 16:25 rn 07/23 15:22 Order name: Blood Culture Adult (2) rn 07/23 15:09 Order name: CT Head Brain wo Cont; Complete Time: 15:57 rn 07/23 15:09 Order name: EKG; Complete Time: 15:11 rn 12 15:09 Order name: Cardiac monitoring; Complete Time: 15:12 rn 07/23 15:09 Order name: EKG - Nurse/Tech; Complete Time: 15:12 rn 07/23 15:09 Order name: IV Saline Lock; Complete Time: 15:29 rn 07/23 15:09 Order name: Labs collected and sent; Complete Time: 15:29 rn 12 15:09 Order name: NPO; Complete Time: 15:12 rn 07/23 15:09 Order name: CT Abd/Pelvis - IV Contrast Only; Complete Time: 16:25 rn 07/23 16:55 Order name: Urine Dipstick--Ancillary (enter results); Complete Time: 07:07 sp 07/23 17:09 Order name: XRAY Chest (1 view); Complete Time: 17:49 rn 07/23 19:00 Order name: Lactate bb 07/23 20:03 Order name: Lactate; Complete Time: 07:07 EDMS 07/23 15:09 Order name: O2 Per Protocol; Complete Time: 15:12 rn 07/23 15:09 Order name: O2 Sat Monitoring; Complete Time: 15:12 rn 07/23 15:09 Order name: Urine Dipstick-Ancillary (obtain specimen); Complete Time: 16:54 rn 07/23 16:49 Order name: Straight Cath - Urine; Complete Time: 16:49 aa5 Administered Medications: 15:25 Drug: NS 0.9% 500 ml Route: IV; Rate: bolus; Site: right antecubital; bp 18:15 Follow up: IV Status: Completed infusion; IV Intake: 500ml bp 15:25 Drug: Zofran 4 mg Route: IVP; Site: right antecubital; bp 15:44 Follow up: Response: Nausea is decreased bp 15:30 Drug: NS 0.9% 500 ml Route: IV; Rate: bolus; Site: right antecubital; bp 18:15 Follow up: IV Status: Completed infusion; IV Intake: 500ml bp 17:14 Drug: NS 0.9% 1000 ml Route: IV; Rate: 125 ml/hr; Site: right antecubital; bp 20:09 Follow up: IV Status: Infusion continued upon admission; IV Intake: 375ml bb Point of Care Testing: Blood Glucose: 15:06 Blood Glucose: 133 mg/dL; aa5 Ranges: Critical Glucose Levels:Adult <50 mg/dl or >400 mg/dl <40 mg/dl or >180 mg/dl Disposition: 07/23/19 17:12 Hospitalization ordered by Edwardo Angel for Inpatient Admission. Preliminary diagnosis are Vagal Response, Syncope and collapse, Fecal impaction, Dehydration, Hypotension, unspecified. - Bed requested for Intensive Care Unit. - Status is Inpatient Admission. bb - Condition is Stable. - Problem is new. - Symptoms have improved. UTI on Admission? No NIH Stroke Scale - NIH Stroke Score Date: 07/23/2019 Time: 15:11 Total Score = 1 1a. Level of Consciousness (LOC) - 1(Not Alert) 1b. Level of Consciousness (LOC) (Year \T\ Age) - 0(Both) 1c. LOC Commands (Open \T\ Closes Eyes/Curriculum Development Specialist) - 0(Both) 2. Best Gaze (Lateral Gaze Paresis) - 0(Normal) 3. Visual Field Loss - 0(No visual loss) 4. Facial Palsy - 0(Normal) 5a. Left Arm: Motor (10-second hold) - 0(No drift) 5b. Right Arm: Motor (10-second hold) - 0(No drift) 6a. Left Leg: Motor (5-second hold - always test supine) - 0(No drift) 6b. Right Leg: Motor (5-second hold - always test supine) - 0(No drift) 7. Limb Ataxia (finger/nose \T\ heel/eldridge - test with eyes open) - 0(Absent) 8. Sensory Loss (pinprick arms/legs/face) - 0(Normal) 9. Best Language: Aphasia (description/naming/reading) - 0(No aphasia) 10. Dysarthria (speech clarity - read or repeat words) - 0(Normal) 11. Extinction and Inattention (visual/tactile/auditory/spatial/personal) - 0(No abnormality) Initials: bp Signatures: Dispatcher [employer] EDMS Beverly aSlas RN RN mw Naomi Wall RN RN bb Nieto, Roman, MD MD rn Calderon, Audri, RN RN aa5 Faustino Garcia RN RN bp Corrections: (The following items were deleted from the chart) 17:45 17:12 Hospitalization Ordered by Edwardo Angel MD for Inpatient Admission. rn Preliminary diagnosis is Vagal Response; Syncope and collapse; Fecal impaction; Dehydration; Hypotension, unspecified. Bed requested for Telemetry/MedSurg (Inpatient). Status is Inpatient Admission. Condition is Stable. Problem is new. Symptoms have improved. UTI on Admission? No. rn 19:03 17:45 07/23/2019 17:12 Hospitalization Ordered by Edwardo Angel MD for Inpatient mw Admission. Preliminary diagnosis is Vagal Response; Syncope and collapse; Fecal impaction; Dehydration; Hypotension, unspecified. Bed requested for Intensive Care Unit. Status is Inpatient Admission. Condition is Stable. Problem is new. Symptoms have improved. UTI on Admission? No. rn 20:50 19:03 07/23/2019 17:12 Hospitalization Ordered by Edwardo Angel MD for Inpatient bb Admission. Preliminary diagnosis is Vagal Response; Syncope and collapse; Fecal impaction; Dehydration; Hypotension, unspecified. Bed requested for Intensive Care Unit. Status is Inpatient Admission. Condition is Stable. Problem is new. Symptoms have improved. UTI on Admission? No. mw
--- NOTE | 2019-07-23 17:44 | RAD REPORT ---
EXAM DESCRIPTION: RAD - Chest Single View - 07/23/2019 5:29 pm CLINICAL HISTORY: AMS Chest pain. COMPARISON: Chest Single View dated 05/02/2019; Chest Single View dated 01/30/2019; Chest Single View dated 01/28/2019; Chest Single View dated 01/16/2019 FINDINGS: Portable technique limits examination quality. The lungs are grossly clear. The heart is normal in size. Prominent tortuosity of the thoracic aorta. IMPRESSION: No acute intrathoracic process suspected.
[2019-07-23 17:53] LABS: Urine Bacteria <20 /HPF (<20); Urine Culture Reflex Order NOT NEEDED; Urine RBC <5 /HPF (NONE SEEN)
[2019-07-23 20:12] LABS: Urine Blood NEGATIVE (NEG); Urine Glucose NEGATIVE (NEG); Urine Protein NEGATIVE (NEG); Urine Specific Gravity 1.015 (1.005-1.030); Urine pH 6.5 (5.0-7.0)
[2019-07-23] MEDS: FLEET ENEMA ADULT PR ONE (20:14)
[2019-07-23] MEDS ORDERED: ONDANSETRON 4 MG/2 ML VIAL IV PRN (20:14)
[2019-07-23] MEDS: NA CHLORIDE 0.9% 1,000 ML IV SCH (20:14)
--- NOTE | 2019-07-23 21:19 | P.HP ---
Certification for Inpatient Patient admitted to: Inpatient With expected LOS: >2 Midnights Practitioner: I am a practitioner with admitting privileges, knowledge of patient current condition, hospital course, and medical plan of care. Services: Services provided to patient in accordance with Admission requirements found in Title 42 Section 412.3 of the Code of Federal Regulations Patient History Date of Service: 07/23/19 Reason for admission: DROP IN BP AND SYNCOPE. History of Present Illness: SWAPNA IS 84 YEARS OLD LADY WITH MAJOR STROKE IN PAST WITH RESIDUAL ORTHOSTATIC BP DROPS COMES WITH RECURRENT EPISODE OF LOW BP AND SYNCOPE WITH DISORIENTATION WHEN SHE IS TRYING TO HAVE BM WITH STRAINING. HER BP IN ER GOES DOWN TO LOW 70 SYSTOLIC WHEN SHE STRAINS. Allergies codeine [Codeine] Adverse Reaction (Intermediate, Verified 01/28/19 06:41) HEADACHE/NAUSEATED meperidine HCl [From Demerol] Adverse Reaction (Intermediate, Verified 01/28/19 06:41) DIZZINESS/NAUSEA Home Medications: Amitriptyline HCl 100 mg PO BEDTIME 05/03/19 Clonidine HCl [Catapres] 0.1 mg PO TIDP PRN 05/03/19 Clopidogrel Bisulfate [Plavix*] 75 mg PO DAILY 05/03/19 Fluoxetine HCl [Prozac] 20 mg PO DAILY 05/03/19 Gabapentin 300 mg PO TID 05/03/19 Insulin Glargine,Hum.rec.anlog [Lantus Solostar] 20 units SQ BEDTIME 05/03/19 Lisinopril [Zestril] 40 mg PO DAILY 05/03/19 Melatonin [Melatonin*] 3 mg PO BEDTIME 05/03/19 Metformin ER [Glucophage ER*] 500 mg PO BID 05/03/19 Nebivolol HCl [Bystolic] 10 mg PO DAILY 05/03/19 Omeprazole 20 mg PO DAILY 05/03/19 Pantoprazole [Protonix Tab*] 40 mg PO BEDTIME 05/03/19 Simvastatin 20 mg PO BEDTIME 05/03/19 - Past Medical/Surgical History Diabetic: Yes -: GERD -: Anxiety -: Hypertension -: CVA -: Depression -: IDDM -: Hyperlipidemia -: Cholecystectomy -: Hysterectomy -: Appendectomy - Family History Mother -: Hypertension Father -: Hypertension - Social History Alcohol use: No CD- Drugs: No Caffeine use: Yes Review of Systems 10-point ROS is otherwise unremarkable General: Weakness, Malaise Physical Examination - Physical Exam General: Mild distress, Moderate distress, Obese HEENT: Atraumatic, PERRLA, Mucous membr. moist/pink, EOMI, Sclerae nonicteric Neck: Supple, 2+ carotid pulse no bruit, No LAD, Without JVD or thyroid abnormality Respiratory: Clear to auscultation bilaterally, Normal air movement Cardiovascular: Regular rate/rhythm, Normal S1 S2 Gastrointestinal: Normal bowel sounds, No tenderness Musculoskeletal: No tenderness Integumentary: No rashes Neurological: Normal gait, Normal speech, Normal strength at 5/5 x4 extr, Normal tone, Normal affect Lymphatics: No axilla or inguinal lymphadenopathy - Studies Laboratory Data (last 24 hrs) 07/23/19 15:25: PT 11.3, INR 0.96, APTT 52.0 H 07/23/19 15:25: WBC 11.3 H, Hgb 11.5 L, Hct 35.4 L, Plt Count 357 07/23/19 15:25: Sodium 132 L, Potassium 4.0, BUN 22 H, Creatinine 1.16, Glucose 165 H, Magnesium 2.5 H, Total Bilirubin 0.3, AST 14 L, ALT 19, Alkaline Phosphatase 176 H, Lipase 106 Assessment and Plan - Problems (Diagnosis) (1) Orthostatic hypotension Current Visit: Yes Status: Acute Plan: SHE HAS HAD THIS PROBLEM SINCE STROKE. SHE GOES FROM VERY HIGH BP ON LAYING DOWN TO 90 SYSTOLIC ON STANDING. SHE IS NOT ABLE TO AMBULATE. I HAVE ASKED FAMILY TO ALSO ELEVATE THE BED HEAD END TO 45% SO SHE NEVER GETS VERY HIGH BP. (2) History of CVA (cerebrovascular accident) Current Visit: No Status: Acute (3) Hypertension Onset Date: 08/18/15 Current Visit: No Status: Chronic (4) Constipation Current Visit: Yes Status: Chronic Plan: CONSTIPATION IS NEW. PER SISTER SHE HAS LARGE BM ROUTINLY BUT IT SEEMS LIKE SHE IS STILL RETAING SOME DAILY. WE SHOULD GIVE HER OIL RETENTION ENEMA WHENBP IS STABLE. - Advance Directives Does patient have a Living Will: No Does patient have a Durable POA for Healthcare: No
[2019-07-24] MEDS: NA CHLORIDE 0.9% 1,000 ML IV SCH ×4 (03:09→17:19)
[2019-07-24 05:11] LABS: Hematocrit 28.3 % (36.0-45.0); Lymphocytes % 6.3 % (15.3-44.8); RBC Red Blood Cell Count 3.76 M/uL (3.86-4.86)
[2019-07-24] MEDS: FLEET ENEMA ADULT PR ONE (05:16)
[2019-07-24 05:31] LABS: Potassium 4.1 mmol/L (3.5-5.1)
[2019-07-24 07:03] VITALS: BMI 30.9
[2019-07-24 08:33] LABS: Blood Morphology Comment NOT SEEN (NOT SEEN); Platelet Estimate ADEQ
--- NOTE | 2019-07-24 08:54 | RAD REPORT ---
EXAM DESCRIPTION: RAD - Abdomen 1 View (KUB) - 07/24/2019 8:46 am CLINICAL HISTORY: impaction Abdominal pain,: Impaction COMPARISON: Abdomen Pelvis W Contrast dated 07/23/2019 FINDINGS: Air-filled large and small bowel loops are present. No small bowel obstruction. No free ai r or pneumatosis. Contrast is present in the urinary bladder from the prior CT study. Abnormal stool volume is not identifiable on plain film. IMPRESSION: Abnormal stool volume is not evident on plain film. Air is seen in prominent but nondila timur large and small bowel loops.
[2019-07-24] MEDS ORDERED: ACETAMINOPHEN 500 MG TAB PO PRN (16:37)
[2019-07-24] MEDS ORDERED: GLUCAGON 1 MG/VIAL IM PRN (16:39)
[2019-07-24] MEDS ORDERED: D50W 25 GM/50 ML SYRINGE/VIAL IV PRN (16:39)
[2019-07-24] MEDS ORDERED: cloNIDine HCl 0.1 MG TAB PO PRN (17:44)
[2019-07-24] MEDS ORDERED: NA CHLORIDE 0.9% 1,000 ML IV SCH (19:00)
[2019-07-24] MEDS: GABAPENTIN 300 MG CAP PO SCH (20:40)
[2019-07-24] MEDS: INSULIN -REGULAR HUMAN 50 UNIT/0.5 ML ML SQ SCH (20:41)
[2019-07-24] MEDS: METFORMIN ER 500 MG TAB PO SCH (20:43)
[2019-07-24] MEDS ORDERED: TAMSULOSIN 0.4 MG SR CAP PO SCH (21:00)
[2019-07-24] MEDS ORDERED: INSULIN GLARGINE HUM REC ANLOG 20 UNIT SQ SCH (21:00)
[2019-07-24] MEDS ORDERED: HOME MED 1 EA UNK (Simvastatin [Simvastatin] 20 MG) PO SCH (21:00)
[2019-07-24] MEDS ORDERED: INSULIN GLARGINE 100 UNITS/ML SQ SCH (21:00)
[2019-07-24] MEDS ORDERED: MELATONIN 3 MG TABLET PO SCH (21:00)
[2019-07-24] MEDS ORDERED: LISINOPRIL 20 MG TAB PO SCH (21:00)
[2019-07-24] MEDS ORDERED: AMITRIPTYLINE 50 MG TAB PO SCH (21:00)
[2019-07-24] MEDS ORDERED: HOME MED 1 EA UNK (Lisinopril [Zestril] 40 MG) PO SCH (21:00)
[2019-07-24] MEDS ORDERED: HOME MED 1 EA UNK (Amitriptyline Hcl [Amitriptyline Hcl] 100 MG) PO SCH (21:00)
[2019-07-24] MEDS ORDERED: ATORVASTATIN 10 MG TAB PO SCH (21:00)
--- NOTE | 2019-07-24 23:33 | PN ---
Subjective: Ms. García is doing a lot better. She had about 6-7 bowel movements yesterday. She had severe constipation on x-ray, even though she has shown bowel movement every other day or so at home, which is a good amount. Physical Examination: General: She is very confused and disoriented as she is in ICU. At baseline, she does have [id number] vascular dementia. Vital Signs: Blood pressure 169/79. Here, her blood pressure is very fluctuating depending on her position of the body. Lying down, she can have a higher blood pressure. Standing up, she can be down to 90 systolic, which is ongoing for her for long duration, even with or without clonidine which she has been on for blood pressure control. Neurological: There are no new deficits. She has had many strokes in the past and she is wheelchair bound at this point. Chest: Clear. Heart: Regular. Abdomen: No guarding, no rebound, no rigidity. Laboratory Examination: White count 16,000, hemoglobin 9.7, hematocrit 28. BUN 24, creatinine 1.16. Nurse ordered an x-ray KUB today the report of which is abnormal stool volume. Volume is not evident on plain film on x-ray examination. Assessment And Plannin. Orthostatic hypotension, syncope related to vasovagal episode also. Start occupational therapy. Possible discharge tomorrow. 2. Leukocytosis and mild anemia. We will follow up on this in the morning. If she continues to have hemoglobin drop, we will have to do further GI evaluation. Try to avoid any invasive evaluation because she is 84 years old with multiple risk factors of complications of any kind of anesthesia. ARMANDO/KARISSA Voice ID: [id number] Report ID: [id number] NORMA
[2019-07-25 06:09] LABS: Absolute Lymphocytes (CBC) 1.5 K/uL (0.7-4.9); Basophils % 0.2 % (0-1.3); Lymphocytes % 16.7 % (15.3-44.8); RBC Red Blood Cell Count 3.62 M/uL (3.86-4.86)
[2019-07-25 06:31] LABS: Potassium 3.7 mmol/L (3.5-5.1)
[2019-07-25] MEDS: INSULIN -REGULAR HUMAN 50 UNIT/0.5 ML ML SQ SCH ×2 (07:30→11:30)
[2019-07-25 08:35] VITALS: O2SAT 95
[2019-07-25] MEDS ORDERED: FLUOXETINE 20 MG CAP PO SCH (09:00)
[2019-07-25] MEDS ORDERED: CLOPIDOGREL 75 MG TABLET PO SCH (09:00)
[2019-07-25] MEDS ORDERED: NEBIVOLOL HCL 5 MG TAB PO SCH (09:00)
[2019-07-25] MEDS ORDERED: HOME MED 1 EA UNK (Nebivolol Hcl [Bystolic] 10 MG) PO SCH (09:00)
[2019-07-25] MEDS: GABAPENTIN 300 MG CAP PO SCH (09:21)
[2019-07-25] MEDS: METFORMIN ER 500 MG TAB PO SCH (09:21)
[2019-07-25 13:39] VITALS: BP 169/72; TEMP 97.3
--- NOTE | 2019-07-25 19:09 | P.PN ---
Subjective Date of Service: 07/24/19 Chief Complaint: FATIGUE, DISORIENTED Subjective: Improving IN THE ICU SHE WAS MORE CONFUSED BUT DID RECOGNIZE PEOPLE. I EXPLAINED TO THE SISTER THAT CONSTANT NOISE AND FLASHES IN ICU WILL MAKE PATIENTS MORE CONFUSED. Review of Systems 10-point ROS is otherwise unremarkable General: Weakness Neurological: Weakness, Incoordination (NO CHANGES), Confusion (SAME) Physical Examination - Vital Signs Temperature: 97.3 F Blood Pressure: 169/72 Pulse: 80 Respirations: 18 Pulse Ox (%): 95 - Physical Exam General: Alert, Mild distress, Obese HEENT: Atraumatic, PERRLA, EOMI Neck: Supple, JVD not distended Respiratory: Clear to auscultation bilaterally, Normal air movement Cardiovascular: Regular rate/rhythm, Normal S1 S2 Gastrointestinal: Normal bowel sounds, No tenderness Musculoskeletal: No tenderness Integumentary: No rashes Neurological: Normal speech, Normal tone, Normal affect Lymphatics: No axilla or inguinal lymphadenopathy - Studies Microbiology Data (last 24 hrs): 07/23/19 16:40 Catheterized Urine [place] Count - Final 07/23/19 16:40 Catheterized Urine - Final No growth. Medications List Reviewed: Yes Assessment And Plan - Current Problems (Diagnosis) (1) Orthostatic hypotension Status: Acute Plan: SHE HAS HAD THIS PROBLEM SINCE STROKE. SHE GOES FROM VERY HIGH BP ON LAYING DOWN TO 90 SYSTOLIC ON STANDING. SHE IS NOT ABLE TO AMBULATE. I HAVE ASKED FAMILY TO ALSO ELEVATE THE BED HEAD END TO 45% SO SHE NEVER GETS VERY HIGH BP. MOVE TO THE FLOOR. START OT, PREPARE FOR DC IN AM. (2) History of CVA (cerebrovascular accident) Status: Acute (3) Hypertension Onset Date: 08/18/15 Status: Chronic (4) Constipation Status: Chronic Plan: CONSTIPATION IS NEW. PER SISTER SHE HAS LARGE BM ROUTINLY BUT IT SEEMS LIKE SHE IS STILL RETAING SOME DAILY. WE SHOULD GIVE HER OIL RETENTION ENEMA WHENBP IS STABLE.
--- NOTE | 2019-07-25 19:10 | P.DS ---
Admission Date: 07/23/19 Discharge Date: 07/25/19 Disposition: ROUTINE DISCHARGE Reason for Admission: FATIGUE, DISORIENTED - Problems (1) Orthostatic hypotension Status: Acute (2) History of CVA (cerebrovascular accident) Status: Acute (3) Hypertension Onset Date: 08/18/15 Status: Chronic (4) Constipation Status: Chronic Brief History of Present Illness: SWAPNA IS 84 YEARS OLD LADY WITH MAJOR STROKE IN PAST WITH RESIDUAL ORTHOSTATIC BP DROPS COMES WITH RECURRENT EPISODE OF LOW BP AND SYNCOPE WITH DISORIENTATION WHEN SHE IS TRYING TO HAVE BM WITH STRAINING. HER BP IN ER GOES DOWN TO LOW 70 SYSTOLIC WHEN SHE STRAINS. Hospital Course: MS. POTTER IS WEAK, FATIGUED BUT LOT BETTER. SHE HAS HAD MANY BMS SINCE ENEMA. SHE STABLE FOR DC. HER HG DROPPED AND I SEE NO ACUTE BLEEDING. SHE IS STABLE FOR DC WITH FU IN OFFICE AND I WILL DO ROUTINE HG EVERY 3 MONTHS. SHE IS NOT A CANDIDATE FOR ANY INVASIVE TESTS IN HER POOR GENERAL CONDITION. Vital Signs/Physical Exam: Temp Pulse Resp BP Pulse Ox 97.3 F 80 18 169/72 H 95 07/25/19 19:08 07/25/19 19:08 07/25/19 19:08 07/25/19 19:08 07/25/19 19:08 Laboratory Data at Discharge: WBC 9.0 K/uL (4.3-10.9) D 07/25/19 05:20 Hgb 8.8 g/dL (12.0-15.0) L 07/25/19 05:20 Hct 27.0 % (36.0-45.0) L 07/25/19 05:20 Plt Count 221 K/uL (152-406) 07/25/19 05:20 PT 11.3 SECONDS (9.5-12.5) 07/23/19 15:25 INR 0.96 07/23/19 15:25 APTT 52.0 SECONDS (24.3-36.9) H 07/23/19 15:25 Sodium 139 mmol/L (136-145) 07/25/19 05:20 Potassium 3.7 mmol/L (3.5-5.1) 07/25/19 05:20 BUN 12 mg/dL (7-18) 07/25/19 05:20 Creatinine 0.73 mg/dL (0.55-1.3) 07/25/19 05:20 Glucose 156 mg/dL (74-106) H 07/25/19 05:20 Magnesium 2.5 mg/dL (1.8-2.4) H 07/23/19 15:25 Total Bilirubin 0.3 mg/dL (0.2-1.0) 07/23/19 15:25 AST 14 U/L (15-37) L 07/23/19 15:25 ALT 19 U/L (12-78) 07/23/19 15:25 Alkaline Phosphatase 176 U/L (45-117) H 07/23/19 15:25 Lipase 106 U/L (73-393) 07/23/19 15:25 Home Medications: Amitriptyline HCl 100 mg PO BEDTIME 05/03/19 Clonidine HCl [Catapres] 0.1 mg PO TIDP PRN 05/03/19 Clopidogrel Bisulfate [Plavix*] 75 mg PO DAILY 05/03/19 Fluoxetine HCl [Prozac] 20 mg PO DAILY 05/03/19 Gabapentin 300 mg PO TID 05/03/19 Insulin Glargine,Hum.rec.anlog [Lantus Solostar] 20 units SQ BEDTIME 05/03/19 Lisinopril [Zestril] 40 mg PO BEDTIME 05/03/19 Melatonin [Melatonin*] 3 mg PO BEDTIME 05/03/19 Metformin ER [Glucophage ER*] 500 mg PO BID 05/03/19 Nebivolol HCl [Bystolic] 10 mg PO DAILY 05/03/19 Omeprazole 20 mg PO DAILY 05/03/19 Pantoprazole [Protonix Tab*] 40 mg PO BEDTIME 05/03/19 Simvastatin 20 mg PO BEDTIME 05/03/19 Tamsulosin [Flomax*] 1 cap PO BEDTIME 07/23/19 Followup: Edwardo Angel MD [Primary Care Provider] -
== END 2019-07-25 12:33 | disposition home or self-care (01) | DRG 312 ==
LOC: ER 15:07 → ERHOLD 17:46 → 3RD-ICU 20:07 → 2ND 07-24 15:06
PROVIDERS: ADMIT Internal Medicine; ATTEND Internal Medicine
DX: I95.1 Orthostatic hypotension (principal); I10 Essential (primary) hypertension; K59.00 Constipation, unspecified; Z86.73 Personal history of transient ischemic attack (TIA), and cerebral infarction without residual deficits; D64.9 Anemia, unspecified; E11.9 Type 2 diabetes mellitus without complications
CPT/HCPCS: 36415; 51702; 70450; 71045; 74018; 74177; 80048; 80076; 80307; 81003; 81015; 82728; 82947; 83605; 83690; 83735; 84484; 85025; 85610; 85730; 87040; 87086; 87088; 93005; 96361; 96374; 97110; 97116; 97161; 97530; 99285; J1815; J2405; J7030; J7040; Q9967

== ENCOUNTER 2019-09-20 16:05 | Inpatient (IN) | payer OTHER, MEDICARE ==
[2019-09-20 16:54] LABS: Absolute Lymphocytes (CBC) 2.3 K/uL (0.7-4.9); Basophils % 0.4 % (0-1.3); Hematocrit 37.6 % (36.0-45.0); Lymphocytes % 17.2 % (15.3-44.8); MPV 8.5 fL (7.6-11.3); RBC Red Blood Cell Count 4.69 M/uL (3.86-4.86)
[2019-09-20 17:44] LABS: Urine Blood TRACE (NEG); Urine Glucose NEGATIVE (NEG); Urine Protein 1+ (NEG); Urine Specific Gravity 1.015 (1.005-1.030)
[2019-09-20 17:54] LABS: Urine Bacteria LOADED /HPF (<20); Urine Culture Reflex Order REFLEXED; Urine RBC NONE SEEN /HPF (NONE SEEN)
[2019-09-20] MEDS ORDERED: CEFTRIAXONE/SWI 1gm 1 GM/10 ML SYR ONE (18:06)
[2019-09-20 18:26] LABS: Protime INR 0.99
--- NOTE | 2019-09-20 18:37 | RAD REPORT ---
EXAM DESCRIPTION: [facility] Single View09/20/2019 5:17 pm CLINICAL HISTORY: sob COMPARISON: July 2018 FINDINGS: The lungs appear clear of acute infiltrate. The heart is mildly enlarged. Aorta is tortuous/ectatic IMPRESSION: No acute abnormalities displayed
[2019-09-20 18:38] LABS: ALT/SGPT 20 U/L (12-78); AST/SGOT 12 U/L (15-37); Albumin 3.7 g/dL (3.4-5.0); Alkaline Phosphatase 157 U/L (45-117); BUN Blood Urea Nitrogen 25 mg/dL (7-18); Bicarbonate 25 mmol/L (21-32); Bilirubin Direct 0.1 mg/dL (0-0.2); Bilirubin Total 0.2 mg/dL (0.2-1.0); Glucose Level 261 mg/dL (74-106); Lipase 62 U/L (73-393); Magnesium 2.2 mg/dL (1.8-2.4); NT PRO-BNP 147 pg/mL (<450); Potassium 4.4 mmol/L (3.5-5.1); Protein, Total 7.3 g/dL (6.4-8.2); Sodium Level 135 mmol/L (136-145); Troponin (Emerg Dept Use Only) < 0.02 ng/mL (0.0-0.045)
[2019-09-20] MEDS ORDERED: NA CHLORIDE 0.9% 500 ML ONE (19:19)
--- NOTE | 2019-09-20 19:40 | RAD REPORT ---
EXAM DESCRIPTION: CT - Abdomen Pelvis W Contrast - 09/20/2019 7:22 pm CLINICAL HISTORY: Abdominal pain COMPARISON: July 2019 TECHNIQUE: Computed axial tomography of the abdomen pelvis was obtained. 100 cc Isovue-300 was admin istered intravenously. Oral contrast was not requested which limits evaluation of bowel. All CT scans are performed using dose optimization technique as appropriate and may include automated exposure control or mA/KV adjustment according to patient size. FINDINGS: The liver, spleen, pancreas, adrenal and kidneys appear unremarkable. There is no evidence of diverticulitis. The wall of the left colon is mildly thickened. A Shay catheter is present the bladder IMPRESSION: Mild thickening of the wall left colon probably indicating a mild colitis
--- NOTE | 2019-09-20 19:50 | EDPHYS ---
Physician Documentation [facility] Name: Skylar Grossman Age: 84 yrs Sex: Female : 1935 Arrival Date: 09/20/2019 Time: 16:10 Bed 20 Private MD: ED Physician Desmond Olsen HPI: 09/20 18:57 This 84 yrs old Female presents to ER via EMS with complaints of Abdominal jr8 Pain, Nausea, Near Syncope. 18:57 Onset: The symptoms/episode began/occurred acutely, today. The patient has experienced jr8 a previous episode. The patient has not recently seen a physician. Patient stated that she has had nausea and abdominal discomfort all day. Stated that she went to use the bathroom and almost passed out while on the toilet. Stated that this has happened in past but normally does not have abdominal pain. Historical: - Allergies: 16:16 Codeine (Upset stomach); hb 16:16 Morphine; hb 16:16 meperidine HCl; hb - Home Meds: 16:16 amitriptyline 100 mg Oral tab 1 tab nightly [Active]; Bystolic 10 mg Oral tab once hb daily [Active]; clonidine HCl 0.1 mg Oral tab 1 tab 3 times per day [Active]; Flomax 0.4 mg Oral cp24 1 cap once daily [Active]; Humalog Sub-Q [Active]; Lantus 100 unit/mL Sub-Q soln 20 unit nightly [Active]; lisinopril 40 mg Oral tab 1 tab once daily [Active]; melatonin 3 mg Oral tab nightly [Active]; metformin 500 mg Oral tab 1 tab 2 times per day [Active]; Plavix 75 mg Oral tab 1 tab once daily [Active]; Neurontin 300 mg Oral cap 1 cap 3 times per day [Active]; Prilosec 20 mg Oral cpDR 1 cap once daily [Active]; Protonix 40 mg Oral TbEC 1 tab once daily [Active]; Prozac 20 mg Oral cap 1 cap once daily [Active]; simvastatin 20 mg Oral tab 1 tab nightly [Active]; simvastatin 20 mg Oral tab 1 tab once daily [Active]; - PMHx: 16:16 Depression; Diabetes - IDDM; GERD; High Cholesterol; Hypertension; CVA; hb - Immunization history:: Adult Immunizations up to date. - Social history:: Smoking status: Patient/guardian denies using tobacco. - Ebola Screening: : No symptoms or risks identified at this time. ROS: 18:57 Eyes: Negative for injury, pain, redness, and discharge, ENT: Negative for injury, jr8 pain, and discharge, Neck: Negative for injury, pain, and swelling, Cardiovascular: Negative for chest pain, palpitations, and edema, Respiratory: Negative for shortness of breath, cough, wheezing, and pleuritic chest pain, Back: Negative for injury and pain, MS/Extremity: Negative for injury and deformity, Skin: Negative for injury, rash, and discoloration. 18:57 Abdomen/GI: Positive for abdominal pain, nausea, abdominal distension, Negative for vomiting, diarrhea, abdominal cramps. 18:57 Neuro: Positive for near syncope. Exam: 18:57 Eyes: Pupils equal round and reactive to light, extra-ocular motions intact. Lids and jr8 lashes normal. Conjunctiva and sclera are non-icteric and not injected. Cornea within normal limits. Periorbital areas with no swelling, redness, or edema. ENT: Nares patent. No nasal discharge, no septal abnormalities noted. Tympanic membranes are normal and external auditory canals are clear. Oropharynx with no redness, swelling, or masses, exudates, or evidence of obstruction, uvula midline. Mucous membranes moist. Neck: Trachea midline, no thyromegaly or masses palpated, and no cervical lymphadenopathy. Supple, full range of motion without nuchal rigidity, or vertebral point tenderness. No Meningismus. Cardiovascular: Regular rate and rhythm with a normal S1 and S2. No gallops, murmurs, or rubs. Normal PMI, no JVD. No pulse deficits. Respiratory: Lungs have equal breath sounds bilaterally, clear to auscultation and percussion. No rales, rhonchi or wheezes noted. No increased work of breathing, no retractions or nasal flaring. Back: No spinal tenderness. No costovertebral tenderness. Full range of motion. Skin: Warm, dry with normal turgor. Normal color with no rashes, no lesions, and no evidence of cellulitis. MS/ Extremity: Pulses equal, no cyanosis. Neurovascular intact. Full, normal range of motion. Neuro: Awake and alert, GCS 15, oriented to person, place, time, and situation. Cranial nerves II-XII grossly intact. Motor strength 5/5 in all extremities. Sensory grossly intact. Cerebellar exam normal. Normal gait. 18:57 Abdomen/GI: Inspection: obese Bowel sounds: active, all quadrants, Palpation: soft, in all quadrants, mild abdominal tenderness, in all quadrants, mass, is not appreciated, rebound tenderness, is not appreciated, voluntary guarding, is not appreciated, involuntary guarding, is not appreciated, no appreciated organomegaly, Indicators: McBurney's point is not tender, Billingsley's sign is negative, Rovsing's sign is negative, Liver: tenderness, is not appreciated. Vital Signs: 16:16 BP 117 / 76; Pulse 74; Resp 18; Temp 98.4; Pulse Ox 91% on R/A; Weight 65.77 kg; Height hb 5 ft. 3 in. (160.02 cm); Pain 6/10; 17:30 BP 116 / 73; Pulse 69; Resp 15; Pulse Ox 99% on 2 lpm NC; Pain 3/10; hb 18:18 BP 131 / 98; Pulse 77; Resp 15; Pulse Ox 97% on 2 lpm NC; hb 19:14 BP 158 / 104; Pulse 58; Resp 16; Pulse Ox 98% on 2 lpm NC; mh5 20:35 BP 142 / 85; Pulse 68; Resp 18; Pulse Ox 100% on R/A; wh 16:16 Body Mass Index 25.69 (65.77 kg, 160.02 cm) hb MDM: 16:17 Patient medically screened. [facility] 19:47 Data reviewed: vital signs, nurses notes, lab test result(s), EKG, radiologic studies, [facility] CT scan, plain films. Data interpreted: Pulse oximetry: on room air is 94 %. Counseling: I had a detailed discussion with the patient and/or guardian regarding: the historical points, exam findings, and any diagnostic results supporting the discharge/admit diagnosis, lab results, radiology results, the need for further work-up and treatment in the hospital. 09/20 16:23 Order name: Basic Metabolic Panel [facility] 09/20 16:23 Order name: CBC with Diff [facility] 09/20 16:23 Order name: LFT's [facility] 09/20 16:23 Order name: Magnesium [facility] 09/20 16:23 Order name: NT PRO-BNP; Complete Time: 18:38 8 09/20 16:23 Order name: PT-INR; Complete Time: 18:35 8 09/20 16:23 Order name: Troponin (emerg Dept Use Only); Complete Time: 18:38 8 09/20 16:23 Order name: Lipase; Complete Time: 18:38 8 09/20 16:24 Order name: Basic Metabolic Panel; Complete Time: 18:38 [facility] 09/20 16:24 Order name: CBC with Automated Diff; Complete Time: 17:03 [facility] 09/20 16:24 Order name: Liver (Hepatic) Function; Complete Time: 18:38 [facility] 09/20 16:24 Order name: Magnesium; Complete Time: 18:38 [facility] 09/20 16:42 Order name: Glucose, Ancillary Testing; Complete Time: 16:49 [facility] 09/20 17:28 Order name: Urine Microscopic Only; Complete Time: 18:01 09/20 16:23 Order name: XRAY Chest (1 view); Complete Time: 18:53 [facility] 09/20 16:23 Order name: EKG; Complete Time: 16:24 8 09/20 16:23 Order name: Cardiac monitoring; Complete Time: 16:27 [facility] 09/20 16:23 Order name: EKG - Nurse/Tech; Complete Time: 16:27 [facility] 09/20 16:23 Order name: IV Saline Lock; Complete Time: 16:27 8 09/20 16:23 Order name: Labs collected and sent; Complete Time: 16:27 [facility] 09/20 16:23 Order name: O2 Per Protocol; Complete Time: 16:27 [facility] 09/20 16:23 Order name: O2 Sat Monitoring; Complete Time: 16:27 8 09/20 16:24 Order name: Glucose Level; Complete Time: 16:27 [facility] 09/20 17:41 Order name: Urine Dipstick--Ancillary (enter results); Complete Time: 18:01 09/20 17:57 Order name: Urine Culture [facility] 09/20 18:55 Order name: CT Abd/Pelvis - IV Contrast Only; Complete Time: 19:46 [facility] 09/20 17:00 Order name: Labs - recollect needed: please recollect the green and purple; Complete eb Time: 17:37 09/20 17:15 Order name: Laurita; Complete Time: 17:29 hb Administered Medications: 18:28 Drug: Rocephin 1 grams Route: IV; Rate: calculated rate; Site: left antecubital; 20:42 Follow up: Response: No adverse reaction; IV Status: Infusion continued upon admission 20:42 Follow up: Response: No adverse reaction; IV Status: Completed infusion 19:33 Drug: NS 0.9% 500 ml Route: IV; Rate: bolus; Site: right forearm; 20:42 Follow up: Response: No adverse reaction; IV Status: Completed infusion 20:30 Drug: Cipro 400 mg Volume: 200 ml; Route: IVPB; Infused Over: 60 mins; Site: left antecubital; 20:43 Follow up: Response: No adverse reaction; IV Status: Infusion continued upon admission 20:41 Drug: Flagyl 500 mg Volume: 100 ml; Route: IVPB; Rate: 200 ml/hr; Infused Over: 30 wh mins; Site: right forearm; 20:42 Follow up: Response: No adverse reaction; IV Status: Infusion continued upon admission Point of Care Testing: Blood Glucose: 16:30 Blood Glucose: 191 mg/dL; hb Ranges: Critical Glucose Levels:Adult <50 mg/dl or >400 mg/dl <40 mg/dl or >180 mg/dl Disposition: 09/20/19 19:49 Hospitalization ordered by Edwardo Angel for Inpatient Admission. Preliminary diagnosis are Acute cystitis, Colitis. - Bed requested for Telemetry/MedSurg (Inpatient). - Status is Inpatient Admission. - Condition is Stable. - Problem is new. - Symptoms have improved. UTI on Admission? Yes Addendum: 09/23/2019 08:16 Co-signature as Attending Physician, Desmond Olsen MD I agree with the assessment and c mai plan of care. Signatures: Dispatcher [employer] EDIA Desmond Olsen MD MD cha Roszak, Josh, PA PA jr8 Shanti Ramsey RN RN Elizabeth Gibbs RN RN Alphonso Ching Juana Harrison Corrections: (The following items were deleted from the chart) 09/20 20:14 19:49 Hospitalization Ordered by Edwardo Angel MD for Inpatient Admission. Preliminary cg diagnosis is Acute cystitis; Colitis. Bed requested for Telemetry/MedSurg (Inpatient). Status is Inpatient Admission. Condition is Stable. Problem is new. Symptoms have improved. UTI on Admission? Yes. jr8 20:57 20:14 09/20/2019 19:49 Hospitalization Ordered by Edwardo Angel MD for Inpatient Admission. Preliminary diagnosis is Acute cystitis; Colitis. Bed requested for Telemetry/MedSurg (Inpatient). Status is Inpatient Admission. Condition is Stable. Problem is new. Symptoms have improved. UTI on Admission? Yes.
--- NOTE | 2019-09-20 19:50 | ER ---
Nurse's Notes [facility] Name: Skylar Grossman Age: 84 yrs Sex: Female : 1935 Arrival Date: 09/20/2019 Time: 16:10 Bed 20 Private MD: Diagnosis: Acute cystitis;Colitis Presentation: 09/20 16:10 Presenting complaint: EMS states: Near syncopal episode while sitting on toilet, also hb c/o right sided abdominal pain and nausea since this morning. SBP 90s, HR 70s, BGL 170. NS 250 ml and Zofran 8 mg IVP administered to R hand 20g [employer]. Transition of care: patient was not received from another setting of care. Onset of symptoms was September 20, 2019. Risk Assessment: Do you want to hurt yourself or someone else? Patient reports no desire to harm self or others. Initial Sepsis Screen: Does the patient meet any 2 criteria? No. Patient's initial sepsis screen is negative. Care prior to arrival: IV initiated. 20 GA, in the right hand. 16:10 Method Of Arrival: EMS: [facility] hb 16:10 Acuity: FARIDA 2 hb 16:25 Initial Sepsis Screen: Does the patient have a suspected source of infection? No. hb Patient's initial sepsis screen is negative. Historical: - Allergies: 16:16 Codeine (Upset stomach); hb 16:16 Morphine; hb 16:16 meperidine HCl; hb - Home Meds: 16:16 amitriptyline 100 mg Oral tab 1 tab nightly [Active]; Bystolic 10 mg Oral tab once hb daily [Active]; clonidine HCl 0.1 mg Oral tab 1 tab 3 times per day [Active]; Flomax 0.4 mg Oral cp24 1 cap once daily [Active]; Humalog Sub-Q [Active]; Lantus 100 unit/mL Sub-Q soln 20 unit nightly [Active]; lisinopril 40 mg Oral tab 1 tab once daily [Active]; melatonin 3 mg Oral tab nightly [Active]; metformin 500 mg Oral tab 1 tab 2 times per day [Active]; Plavix 75 mg Oral tab 1 tab once daily [Active]; Neurontin 300 mg Oral cap 1 cap 3 times per day [Active]; Prilosec 20 mg Oral cpDR 1 cap once daily [Active]; Protonix 40 mg Oral TbEC 1 tab once daily [Active]; Prozac 20 mg Oral cap 1 cap once daily [Active]; simvastatin 20 mg Oral tab 1 tab nightly [Active]; simvastatin 20 mg Oral tab 1 tab once daily [Active]; - PMHx: 16:16 Depression; Diabetes - IDDM; GERD; High Cholesterol; Hypertension; CVA; hb - Immunization history:: Adult Immunizations up to date. - Social history:: Smoking status: Patient/guardian denies using tobacco. - Ebola Screening: : No symptoms or risks identified at this time. Screenin:21 Abuse screen: Denies threats or abuse. Denies injuries from another. Nutritional hb screening: No deficits noted. Tuberculosis screening: No symptoms or risk factors identified. Fall Risk Total Nettles Fall Scale indicates High Risk Score (45 or more points). Fall prevention measures have been instituted. Side Rails Up X 2 Frequent Obs/Assessments Occuring Family Present and informed to notify staff if the need to leave the bedside As available patient and family educated on Fall Prevention Program and Strategies. Assessment: 16:21 General: Appears in no apparent distress. ill, Behavior is calm, cooperative. Pain: hb Pain currently is 8 out of 10 on a pain scale. Neuro: Level of Consciousness is obeys commands, lethargic, Oriented to person, place, time, situation. Cardiovascular: Heart tones S1 S2 present Capillary refill < 3 seconds Patient's skin is warm and dry. Respiratory: Airway is patent Respiratory effort is even, unlabored, Respiratory pattern is regular, symmetrical, Breath sounds are clear bilaterally. GI: Abdomen is distended, Bowel sounds present X 4 quads. Abd is soft X 4 quads Abdomen is tender to palpation diffusely Reports right sided abdominal pain, nausea. : No signs and/or symptoms were reported regarding the genitourinary system. EENT: No signs and/or symptoms were reported regarding the EENT system. Derm: Skin is dry, Skin is pale, Skin temperature is warm. Musculoskeletal: No signs and/or symptoms reported regarding the musculoskeletal system. 17:30 Reassessment: Patient appears in no apparent distress at this time. Patient and/or hb family updated on plan of care and expected duration. Pain level reassessed. Patient is alert, oriented x 3, equal unlabored respirations, skin warm/dry/pink. 18:17 Reassessment: Patient appears in no apparent distress at this time. Patient and/or hb family updated on plan of care and expected duration. Pain level reassessed. Patient is alert, oriented x 3, equal unlabored respirations, skin warm/dry/pink. 19:10 Reassessment: Patient appears in no apparent distress at this time. Patient and/or family updated on plan of care and expected duration. Pain level reassessed. Patient is alert, oriented x 3, equal unlabored respirations, skin warm/dry/pink. 20:35 Reassessment: Patient appears in no apparent distress at this time. No changes from previously documented assessment. Patient and/or family updated on plan of care and expected duration. Pain level reassessed. Patient is alert, oriented x 3, equal unlabored respirations, skin warm/dry/pink. Vital Signs: 16:16 BP 117 / 76; Pulse 74; Resp 18; Temp 98.4; Pulse Ox 91% on R/A; Weight 65.77 kg; Height hb 5 ft. 3 in. (160.02 cm); Pain 6/10; 17:30 BP 116 / 73; Pulse 69; Resp 15; Pulse Ox 99% on 2 lpm NC; Pain 3/10; hb 18:18 BP 131 / 98; Pulse 77; Resp 15; Pulse Ox 97% on 2 lpm NC; hb 19:14 BP 158 / 104; Pulse 58; Resp 16; Pulse Ox 98% on 2 lpm NC; mh5 20:35 BP 142 / 85; Pulse 68; Resp 18; Pulse Ox 100% on R/A; wh 16:16 Body Mass Index 25.69 (65.77 kg, 160.02 cm) ED Course: 16:10 Patient arrived in ED. hb 16:13 Triage completed. hb 16:16 Arm band placed on. hb 16:17 Bogdan Hay PA is PHCP. jr8 16:17 Desmond Olsen MD is Attending Physician. jr8 16:24 Patient has correct armband on for positive identification. Bed in low position. Call hb light in reach. Side rails up X 1. 16:24 Maintain EMS IV. Dressing intact. Good blood return noted. Site clean \T\ dry. Gauge \T\ hb site: 20g right hand. 16:27 Gibbs, Elizabeth, RN is Primary Nurse. 17:17 XRAY Chest (1 view) In Process Unspecified. EDMS 17:25 Shay cath inserted, using sterile technique, 16 Fr., by ca, balloon inflated, to gravity drainage, urine specimen collected. returned cloudy urine. Patient tolerated well. 17:48 Lab(s) recollected. Inserted saline lock: 24 gauge in left antecubital area, using aseptic technique. ,using aseptic technique. by Astrid WHITT. 19:22 CT Abd/Pelvis - IV Contrast Only In Process Unspecified. EDMS 19:48 Edwardo Angel MD is Hospitalizing Provider. jr8 20:56 No provider procedures requiring assistance completed. Patient admitted, IV remains in place. Administered Medications: 18:28 Drug: Rocephin 1 grams Route: IV; Rate: calculated rate; Site: left antecubital; 20:42 Follow up: Response: No adverse reaction; IV Status: Infusion continued upon admission 20:42 Follow up: Response: No adverse reaction; IV Status: Completed infusion 19:33 Drug: NS 0.9% 500 ml Route: IV; Rate: bolus; Site: right forearm; 20:42 Follow up: Response: No adverse reaction; IV Status: Completed infusion 20:30 Drug: Cipro 400 mg Volume: 200 ml; Route: IVPB; Infused Over: 60 mins; Site: left antecubital; 20:43 Follow up: Response: No adverse reaction; IV Status: Infusion continued upon admission 20:41 Drug: Flagyl 500 mg Volume: 100 ml; Route: IVPB; Rate: 200 ml/hr; Infused Over: 30 wh mins; Site: right forearm; 20:42 Follow up: Response: No adverse reaction; IV Status: Infusion continued upon admission Point of Care Testing: Blood Glucose: 16:30 Blood Glucose: 191 mg/dL; hb Ranges: Outcome: 19:49 Decision to Hospitalize by Provider. junior 20:56 Admitted to Med/surg accompanied by tech, family with patient, via stretcher, with chart, Report called to Shirley Herrera RN 20:56 Condition: stable 20:56 Instructed on the need for admit. 20:57 Patient left the ED. Signatures: Dispatcher [employer] EDMS Bogdan Hay PA PA jr8 Elizabeth Gibbs, RN RN Belén Lopez [facility] Alphonso Ching Corrections: (The following items were deleted from the chart) 16:23 16:21 GI: Abdomen is non-distended, Bowel sounds present X 4 quads. Abd is soft and non hb tender X 4 quads. Reports right sided abdominal pain, nausea hb
[2019-09-20] MEDS ORDERED: METRONIDAZOLE 500mg IVPB 500 MG/100 ML BAG IV ONE (20:40)
[2019-09-20] MEDS ORDERED: CIPROFLOXACIN 400mg IV 400 MG/200 ML BAG IV ONE (20:40)
[2019-09-20 21:22] VITALS: BMI 30.9
[2019-09-20 21:30] VITALS: O2SAT 100
[2019-09-20] MEDS ORDERED: D50W 25 GM/50 ML SYRINGE/VIAL IV PRN (21:46)
[2019-09-20] MEDS ORDERED: GLUCAGON 1 MG/VIAL IM PRN (21:46)
[2019-09-20] MEDS ORDERED: ONDANSETRON 4 MG/2 ML VIAL IV PRN (21:46)
[2019-09-20] MEDS: INSULIN -REGULAR HUMAN 50 UNIT/0.5 ML ML SQ SCH (21:46)
[2019-09-20] MEDS: D5 0.45 NS 1,000 ML IV SCH (22:34)
[2019-09-21] MEDS: METRONIDAZOLE 500mg IVPB 500 MG/100 ML BAG IV SCH ×2 (03:04→08:09)
[2019-09-21 05:46] LABS: Absolute Lymphocytes (CBC) 1.5 K/uL (0.7-4.9); Basophils % 0.3 % (0-1.3); Hematocrit 31.8 % (36.0-45.0); Lymphocytes % 18.4 % (15.3-44.8); MPV 8.3 fL (7.6-11.3); RBC Red Blood Cell Count 4.01 M/uL (3.86-4.86)
[2019-09-21 06:07] LABS: ALT/SGPT 18 U/L (12-78); AST/SGOT 9 U/L (15-37); Albumin 3.2 g/dL (3.4-5.0); Alkaline Phosphatase 116 U/L (45-117); BUN Blood Urea Nitrogen 20 mg/dL (7-18); Bicarbonate 27 mmol/L (21-32); Bilirubin Direct < 0.1 mg/dL (0-0.2); Bilirubin Total 0.2 mg/dL (0.2-1.0); Glucose Level 154 mg/dL (74-106); Lipase 50 U/L (73-393); Potassium 3.9 mmol/L (3.5-5.1); Protein, Total 6.5 g/dL (6.4-8.2); Sodium Level 137 mmol/L (136-145)
[2019-09-21] MEDS: CIPROFLOXACIN 400mg IV 400 MG/200 ML BAG IV SCH ×2 (06:14→08:08)
[2019-09-21] MEDS: INSULIN -REGULAR HUMAN 50 UNIT/0.5 ML ML SQ SCH ×2 (07:30→11:30)
[2019-09-21] MEDS: D5 0.45 NS 1,000 ML IV SCH (11:06)
[2019-09-21 12:34] VITALS: BP 150/99; TEMP 98.4
--- NOTE | 2019-09-21 19:45 | P.SSS ---
Patient History Date of Service: 09/21/19 Reason for admission: ALMOST PASSED OUT WHILE HAVING BM. History of Present Illness: MS. MCCAIN HAS HISTORY OF VASOVAGAL AND ORTHOSTATIC HYPOTENSION. SHE HAS HAD HTN, DM AND SINCE CVA SHE HAS HAD MORE ISSUES WITH LOW BP AND SYNCOPE WHILE STRAINING. THIS HAPENED ONCE MORE ON DAY OF ADMISSION. SHE HAS NO UTI SS, NO BURNING, NO FEVER, NO PAIN, NO NAUSEA AND VOMITING. HER URINE SMELLS HEAVY LATELY. NO DIARRHEA, NO CONSTIPATION ETC. Allergies codeine [Codeine] Adverse Reaction (Intermediate, Verified 07/23/19 22:37) HEADACHE/NAUSEATED meperidine HCl [From Demerol] Adverse Reaction (Intermediate, Verified 07/23/19 22:37) DIZZINESS/NAUSEA Home Medications: Amitriptyline HCl 100 mg PO BEDTIME 05/03/19 Clonidine HCl [Catapres] 0.1 mg PO TIDP PRN 05/03/19 Clopidogrel Bisulfate [Plavix*] 75 mg PO DAILY 05/03/19 Fluoxetine HCl [Prozac] 20 mg PO DAILY 05/03/19 Gabapentin 300 mg PO TID 05/03/19 Insulin Glargine,Hum.rec.anlog [Lantus Solostar] 20 units SQ BEDTIME 05/03/19 Lisinopril [Zestril] 40 mg PO BEDTIME 05/03/19 Melatonin [Melatonin*] 3 mg PO BEDTIME 05/03/19 Metformin ER [Glucophage ER*] 500 mg PO BID 05/03/19 Nebivolol HCl [Bystolic] 10 mg PO DAILY 05/03/19 Omeprazole 20 mg PO DAILY 05/03/19 Simvastatin 20 mg PO BEDTIME 05/03/19 Cefuroxime [Ceftin] 250 mg PO BID #14 tab 09/21/19 - Past Medical/Surgical History Has patient received pneumonia vaccine in the past: Yes Diabetic: Yes -: GERD -: Anxiety -: Hypertension -: CVA -: Depression -: IDDM -: Hyperlipidemia -: Cholecystectomy -: Hysterectomy -: Appendectomy - Family History Sister -: Cancer Notes: uterine Mother -: Hypertension Father -: Hypertension - Social History Smoking Status: Never smoker Alcohol use: No CD- Drugs: No Caffeine use: No Place of Residence: Home Review of Systems 10-point ROS is otherwise unremarkable Neurological: Confusion (MORE WHEN SHE IS IN THE HOSPITAL. SHE HAS BASELINE VASCUALR DEMENTIA.) Physical Examination - Vital Signs Temperature: 98.4 F Blood Pressure: 150/99 Pulse: 98 Respirations: 18 Pulse Ox (%): 93 - Physical Exam General: Alert, In no apparent distress HEENT: Atraumatic, PERRLA, Mucous membr. moist/pink, EOMI, Sclerae nonicteric Neck: Supple, 2+ carotid pulse no bruit, No LAD, Without JVD or thyroid abnormality Respiratory: Clear to auscultation bilaterally, Normal air movement Cardiovascular: Regular rate/rhythm, Normal S1 S2 Gastrointestinal: Normal bowel sounds, No tenderness Musculoskeletal: No tenderness Integumentary: No rashes Neurological: Normal gait, Abnormal gait (SHE IS WHEELCHAIR BOUND. SISTER IS TAKING CARE OF HER. SHEMOVES FROM WC TO BED AND COMMMODE.) Lymphatics: No axilla or inguinal lymphadenopathy - Diagnosis (Problem(s)) (1) Vasovagal near syncope Status: Acute Plan: SHE GETS THIS OFTEN. HER VASCULAR SYSTEM IS NOT CORRECTABL. SHE GETS VERY HIGH BP WHEN LAYING DOWN AND DROPS WHEN STANDS UP OR SITS UP OR STRAINS. STABLE FOR DC. NO UTI SS. CT SCAN SHOWS COLITIS BUT HAS NO SYMPTOMS AND SHE DOES NOT CAN'T DO PREP FOR COLONOSCOPY WITH POOR GEN CONDITION AND BOTH SISTER WHO IS POWER OF SUPERVISOR ENGINE REPAIR REFUSE TO GET IT DONE. (2) Diabetes Onset Date: 08/18/15 Status: Chronic Plan: MANAGED ON OP BASIS. Qualifiers: Diabetes mellitus type: type 2 - Disposition Disposition: ROUTINE DISCHARGE Condition: FAIR
--- NOTE | 2019-09-22 06:40 | EKG ---
Test Date: 2019-09-20 Test Time: 16:16:04 Dye Range Feeder: DOMENICO MEASUREMENT RESULTS: Intervals: Rate: 78 ME: 222 QRSD: 138 QT: 484 QTc: 551 [place]: P: 62 ME: 222 QRS: 74 T: 27 INTERPRETIVE STATEMENTS: Sinus rhythm with 1st degree AV block with premature supraventricular complexes Right bundle branch block Abnormal ECG Compared to ECG 07/23/2019 15:04:17 Atrial premature complex(es) now present First degree AV block now present Sinus arrhythmia no longer present Electronically Signed On 09-22-19 06:39:43 INTERNET SALES MANAGER by Anselmo Caballero
[2019-09-22] MEDS ORDERED: LIDOCAINE 4% PATCH TOP ONE (10:12)
== END 2019-09-21 15:10 | disposition home or self-care (01) | DRG 312 ==
LOC: ER 16:05 → ERHOLD 20:14 → 2ND 20:36
PROVIDERS: ADMIT Internal Medicine; ATTEND Internal Medicine
PROC: 0T9B70Z Drainage of Bladder with Drainage Device, Via Natural or Artificial Opening (ICD-10-PCS; principal; 2019-09-20)
DX: R55 Syncope and collapse (principal); K21.9 Gastro-esophageal reflux disease without esophagitis; F41.9 Anxiety disorder, unspecified; I10 Essential (primary) hypertension; F32.9 Major depressive disorder, single episode, unspecified; E11.9 Type 2 diabetes mellitus without complications; E78.5 Hyperlipidemia, unspecified; Z86.73 Personal history of transient ischemic attack (TIA), and cerebral infarction without residual deficits
CPT/HCPCS: 36415; 51702; 71045; 74177; 80048; 80076; 81003; 81015; 82947; 83690; 83735; 83880; 84484; 85025; 85610; 87077; 87086; 87088; 87186; 93005; 99285; J0696; J0744; J7040; J7799; Q9967

== ENCOUNTER 2020-03-24 11:40 | Emergency (ER) | payer OTHER, MEDICARE ==
--- NOTE | 2020-03-24 12:36 | RAD REPORT ---
EXAM DESCRIPTION: [facility] Single View03/24/2020 12:23 pm CLINICAL HISTORY: cough COMPARISON: September 2019 FINDINGS: The lungs appear clear of acute infiltrate. The heart is moderately enlarged IMPRESSION: No acute abnormalities displayed
[2020-03-24] MEDS ORDERED: NA CHLORIDE 0.9% 1,000 ML ONE (12:45)
--- NOTE | 2020-03-24 12:52 | RAD REPORT ---
EXAM DESCRIPTION: CT - Head Brain Wo Cont - 03/24/2020 12:22 pm CLINICAL HISTORY: SYNCOPE Headache, drowsiness. Fall, head injury. COMPARISON: Head Brain Wo Cont dated 07/23/2019; Head Brain Wo Cont dated 05/02/2019 TECHNIQUE: All CT scans are performed using dose optimization technique as appropriate and may inclu de automated exposure control or mA/KV adjustment according to patient size. FINDINGS: No intracranial hemorrhage, hydrocephalus or extra-axial fluid collection.Moderate general ized brain atrophy is present with mild periventricular and deep white matter chronic microvascular i schemic changes.No areas of brain edema or evidence of midline shift. The paranasal sinuses and mastoids are clear. Several right-sided ryne holes noted. Bilateral vertebr al artery atherosclerosis. IMPRESSION: No acute intracranial abnormality.
[2020-03-24 13:42] LABS: Urine Blood NEGATIVE (NEG); Urine Glucose NEGATIVE (NEG); Urine Protein NEGATIVE (NEG); Urine Specific Gravity 1.015 (1.005-1.030); Urine pH 6.5 (5.0-7.0)
[2020-03-24 14:08] LABS: Absolute Lymphocytes (CBC) 1.3 K/uL (0.7-4.9); Basophils % 0.1 % (0-1.3); Hematocrit 36.3 % (36.0-45.0); Lymphocytes % 6.9 % (15.3-44.8); MPV 8.6 fL (7.6-11.3); Protime INR 1.03; RBC Red Blood Cell Count 4.32 M/uL (3.86-4.86)
[2020-03-24 14:35] LABS: ALT/SGPT 15 U/L (12-78); Albumin 3.3 g/dL (3.4-5.0); Alkaline Phosphatase 157 U/L (45-117); BUN Blood Urea Nitrogen 18 mg/dL (7-18); Bicarbonate 23 mmol/L (21-32); Bilirubin Direct < 0.1 mg/dL (0-0.2); Bilirubin Total 0.3 mg/dL (0.2-1.0); Glucose Level 183 mg/dL (74-106); NT PRO-BNP 184 pg/mL (<450); Protein, Total 6.6 g/dL (6.4-8.2); Sodium Level 132 mmol/L (136-145); Troponin (Emerg Dept Use Only) < 0.02 ng/mL (0.0-0.045)
[2020-03-24 14:36] LABS: AST/SGOT 19 U/L (15-37); Magnesium 2.4 mg/dL (1.8-2.4); Potassium 4.8 mmol/L (3.5-5.1)
[2020-03-24 14:37] LABS: Blood Morphology Comment NOT SEEN (NOT SEEN); Platelet Estimate ADEQ; Urine White Blood Cell Casts OK
[2020-03-24] MEDS ORDERED: CEFTRIAXONE/SWI 1gm 1 GM/10 ML SYR ONE (15:27)
--- NOTE | 2020-03-24 15:33 | RAD REPORT ---
EXAM DESCRIPTION: CT - Angio Aorta For Dissection - 03/24/2020 3:14 pm CLINICAL HISTORY: Shortness of breath/abdominal COMPARISON: 2019 and 2016 TECHNIQUE: Computed tomography angiography of the chest, abdomen pelvis were obtained. 100 cc Isovue 370 was administered intravenously. Coronal and sagittal reconstruction were performed. MIP 3D reconstruction was performed All CT scans are performed using dose optimization technique as appropriate and may include automated exposure control or mA/KV adjustment according to patient size. 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 Mild noncalcified plaque is present. Mild to moderate vascular calcifications are presen t. An aortic aneurysm is not displayed. The celiac, SMA and DA are patent . A lung consolidation is not present. A pericardial effusion is not seen. A pleural effusion is not n oted. The liver,spleen, pancreas adrenals kidneys demonstrate no significant abnormality. The wall of the left colon is moderately thickened. No evidence of diverticulitis. Spondylosis involves lumbar spine resulting in spinal stenosis Shay catheter within the bladder IMPRESSION: Short-segment chronic dissection abdominal aorta Moderate left colonic wall thickening probably colitis
--- NOTE | 2020-03-24 15:42 | ER ---
Nurse's Notes [facility] Name: Skylar Grossman Age: 84 yrs Sex: Female : 1935 Arrival Date: 03/24/2020 Time: 11:44 Bed 13 Private MD: Diagnosis: Left sided colitis;Abdominal tenderness;Syncope and collapse-near;Type 1 diabetes mellitus;Urinary tract infection, site not specified Presentation: 03/24 11:44 Chief complaint: Patient states: found unresponsive by family on toilet. Pt has a ss history of syncope. Pt reports she has been dizzy since yesterday. Coronavirus screen: Proceed with normal triage. Patient denies a cough. Patient denies shortness of breath or difficulty breathing. Patient denies measured and/or subjective temperature greater than 100.4F prior to today's visit. Patient denies travel on a cruise ship or to a country the [facility] currently lists as an affected area. Patient denies contact with known and/or suspected case of COVID-19. Ebola Screen: Patient denies exposure to infectious person. Patient denies travel to an Ebola-affected area in the 21 days before illness onset. Initial Sepsis Screen: Does the patient meet any 2 criteria? No. Patient's initial sepsis screen is negative. Does the patient have a suspected source of infection? No. Patient's initial sepsis screen is negative. Risk Assessment: Do you want to hurt yourself or someone else? Patient reports no desire to harm self or others. Onset of symptoms was March 23, 2020. Care prior to arrival: Medication(s) given: zofran 4 mg, NS 250 mL IV initiated. 20 GA, in the right hand, 20 gauge in L AC Glucose check: 141. 11:44 Method Of Arrival: EMS: [facility] ss 11:44 Acuity: FARIDA 3 ss Historical: - Allergies: 11:49 Codeine (Upset stomach); ss 11:49 meperidine HCl; ss 11:49 Morphine; ss - PMHx: 11:49 CVA; Depression; Diabetes - IDDM; High Cholesterol; GERD; Hypertension; ss - Immunization history:: Adult Immunizations up to date. - Social history:: Smoking status: Patient denies any tobacco usage or history of. Screenin:27 Abuse screen: Denies threats or abuse. Denies injuries from another. Nutritional ph screening: No deficits noted. Tuberculosis screening: No symptoms or risk factors identified. Fall Risk Fall in past 12 months (25 points). No secondary diagnosis (0 pts). IV access (20 points). Ambulatory Aid- None/Bed Rest/Nurse Assist (0 pts). Gait- Weak (10 pts.). Mental Status- Oriented to own ability (0 pts). Total Nettles Fall Scale indicates High Risk Score (45 or more points). Fall prevention measures have been instituted. Side Rails Up X 2 Placed Close to Nursing Station Frequent Obs/Assessments Occuring As available patient and family educated on Fall Prevention Program and Strategies. Assessment: 13:59 General: Appears in no apparent distress. comfortable, well groomed, Behavior is ph cooperative, appropriate for age, drowsy, listless. Pain: Denies pain. Neuro: Level of Consciousness is obeys commands, lethargic, listless, Oriented to person, place. Cardiovascular: Rhythm is irregular. Respiratory: Airway is patent Respiratory effort is even, unlabored, Respiratory pattern is regular, symmetrical, Denies cough, shortness of breath. GI: Abdomen is round non-distended, Patient currently denies abdominal pain, diarrhea, nausea, vomiting. : No signs and/or symptoms were reported regarding the genitourinary system. Derm: Skin is intact, Skin is pale, Skin temperature is cool. Musculoskeletal: Circulation, motion, and sensation intact. Range of motion: intact in all extremities. 14:51 Reassessment: Patient appears in no apparent distress at this time. Patient and/or ph family updated on plan of care and expected duration. Pain level reassessed. Pt drowsy and letrhargic, noted to have turned in bed sideways, had BM on bed and floor, cleaned of incontinence, placed in clean gown and brief, linens changed. 15:37 Reassessment: Patient appears in no apparent distress at this time. Patient and/or ph family updated on plan of care and expected duration. Pain level reassessed. Pt remains drowsy and confused, oriented to person only, BP improved to 110/57, other VS WNL. 16:43 Reassessment: Patient appears in no apparent distress at this time. No changes from ph previously documented assessment. Patient and/or family updated on plan of care and expected duration. Pain level reassessed. 18:00 Reassessment: Patient appears in no apparent distress at this time. No changes from previously documented assessment. Patient and/or family updated on plan of care and expected duration. Pain level reassessed. Pt awake and alert, oriented to person only, daughter at bedside. 18:30 Reassessment: When informed about transfer to [facility] pt's daughter states, " Is there ph any way she can just be discharged home? She has dementia and needs me to be with her. 19:10 Reassessment: Patient appears in no apparent distress at this time. Patient and/or jb4 family updated on plan of care and expected duration. Pain level reassessed. Pt alert and oriented x4, seems confused when talking to her. Will respond to question inappropriately at times. Sister states this is normal without her medication .Informed patients family member of need for discharge. Pt reports wanting to speak with the Dr. prior to agreeing to transfer. States " well each time she comes in for this, she is only here for a day and then goes home. I think I will be okay to take care of her at home. I will not be able to go with her to [facility] and I would rather be with her." Informed the family member of need for higher care, and that the Dr. would be in soon to explain the reason for transfer. 20:45 Reassessment: Patient appears in no apparent distress at this time. No changes from [facility] previously documented assessment. Patient and/or family updated on plan of care and expected duration. Pain level reassessed. Family continues to want to change their mind about transfer, voicing concerns of care at receiving facility. Explained that this is the best option at this time due to severity of symptoms. Explained that if they take the Pt AMA that symptoms could worsen up to , or further complications could occur leading to , and that if they seek another Dr. for advice, there is no guarantee of a different outcome and that care can be greatly delayed. Sister and Son (Hood) agree to transfer. Sister and Son agree to Transfer. 21:37 Reassessment: Report called to JOSE EDUARDO Robledo at [facility]. Advised jb to have a sitter for the patient due to symptoms, increased confusion, history of falls and current high risk for falls. 22:50 Reassessment: Patient appears in no apparent distress at this time. Patient and/or jb4 family updated on plan of care and expected duration. Pain level reassessed. Pt given 1mg of Ativan prior to transfer due to increased confusion and agitation and trying to get out of bed. IV's remain patent, and flush well. Transferred out of ED via EMS. 23:00 Reassessment: Home medications faxed to Receiving facility. jb4 03/25 00:30 Reassessment: Home medications faxed again to receiving facility per JOSE EDUARDO Rolbedo. jb4 Vital Signs: 03/24 11:44 Resp 16; Weight 77.11 kg; Height 5 ft. 4 in. (162.56 cm); Pain 0/10; ss 12:30 BP 124 / 110; Pulse 66; Resp 18; Pulse Ox 97% on R/A; ph 13:27 BP 90 / 53; Pulse 52; Resp 16; Pulse Ox 97% on R/A; ph 14:50 BP 107 / 68; Pulse 59; Resp 18; Temp 97.4(TE); Pulse Ox 96% on R/A; ph 16:00 BP 100 / 65; Pulse 91; Resp 18; Pulse Ox 97% on R/A; ph 17:00 BP 102 / 60; Pulse 59; Resp 16; Pulse Ox 98% on R/A; ph 18:00 BP 146 / 78; Pulse 64; Resp 16; Pulse Ox 98% on R/A; ph 21:30 BP 129 / 91; Pulse 65; Resp 16; Temp 97.0; Pulse Ox 98% on R/A; Pain 0/10; jb4 11:44 Body Mass Index 29.18 (77.11 kg, 162.56 cm) ED Course: 11:44 Patient arrived in ED. ss 11:47 Triage completed. ss 11:49 Arm band placed on right wrist. ss 11:54 Desmond Olsen MD is Attending Physician. denzel 12:14 Bri Elliott, RN is Primary Nurse. ph 12:22 XRAY Chest (1 view) In Process Unspecified. EDMS 12:22 CT Head Brain wo Cont In Process Unspecified. EDMS 13:28 Patient has correct armband on for positive identification. Placed in gown. Bed in low ph position. Call light in reach. Side rails up X2. monitor technician on. Pulse ox on. NIBP on. Door closed. Noise minimized. Warm blanket given. 13:58 Shay cath inserted, using sterile technique, 16 Fr., by primary care nurse, balloon inflated, to ph gravity drainage, urine specimen collected. Maintain EMS IV. Dressing intact. Good blood return noted. Site clean \\T\\ dry. Gauge \\T\\ site: 20 LAC. Maintain EMS IV. Dressing intact. Site clean \\T\\ dry. Gauge \\T\\ site: 20 R hand. 15:14 CT Aorta for Dissection In Process Unspecified. EDMS 16:46 No provider procedures requiring assistance completed. ph 20:42 Primary Nurse role handed off by Bri Elliott, JOSE EDUARDO jb4 20:42 Bennett Downs, JOSE EDUARDO is Primary Nurse. jb4 22:55 Patient transferred, IV remains in place. jb4 Administered Medications: 13:00 Drug: NS 0.9% 1000 ml Route: IV; Rate: 125 ml/hr; Site: right hand; ph 13:58 Drug: NS 0.9% 500 ml Route: IV; Rate: bolus; Site: right hand; ph 15:15 Follow up: Response: No adverse reaction; IV Status: Completed infusion ph 16:16 Drug: Flagyl 500 mg Volume: 100 ml; Route: IVPB; Rate: 200 ml/hr; Infused Over: 30 ph mins; Site: left antecubital; 16:50 Follow up: Response: No adverse reaction; IV Status: Completed infusion ph 16:17 Drug: Rocephin - (cefTRIAXone) 1 grams Route: IVPB; Infused Over: 30 mins; Site: left ph antecubital; 17:40 Follow up: Response: No adverse reaction; IV Status: Completed infusion ph 22:50 Drug: Ativan 1 mg Route: IVP; Site: right hand; jb4 22:55 Follow up: Response: No adverse reaction; Marked relief of symptoms jb4 Outcome: 15:42 ER care complete, transfer ordered by MD. mahoney 22:50 Transferred by ground EMS EMS. to [facility], Transfer form jb4 completed. X-rays sent w/ patient. 22:50 Condition: stable 22:50 Discharge instructions given to family, Instructed on the need for transfer, Demonstrated understanding of instructions. 22:57 Patient left the ED. jb4 Signatures: Dispatcher [employer] EDKS Desmond Olsen MD MD cha Smirch, Shelby, RN RN ss Jeri Flores RN RN lp1 Bri Elliott RN RN Bennett Downs RN RN jb4 Corrections: (The following items were deleted from the chart) 20:50 19:05 Reassessment: Patient appears in no apparent distress at this time. Patient jb4 and/or family updated on plan of care and expected duration. Pain level reassessed. Patient is alert, oriented x 3, equal unlabored respirations, skin warm/dry/pink. Informed patients family member of need for discharge. Pt reports wanting to speak with the Dr. prior to agreeing to transfer. States " well each time she comes in for this, she is only here for a day and then goes home. I think I will be okay to take care of her at home. I will not be able to go with her to [facility] and I would rather be with her." Informed the family member of need for higher care, and that the Dr. would be in soon to explain the reason for transfer. ph 22:56 21:37 Reassessment: Report called to JOSE EDUARDO Robledo at [facility]. lp1 jb4
--- NOTE | 2020-03-24 15:42 | EDPHYS ---
Physician Documentation [facility] Name: Skylar Grossman Age: 84 yrs Sex: Female : 1935 Arrival Date: 03/24/2020 Time: 11:44 Bed 13 Private MD: ED Physician Desmond Olsen HPI: 03/24 13:02 This 84 yrs old Female presents to ER via EMS with complaints of Syncope. denzel 13:02 This 84 yrs old Female presents to ER via EMS with complaints of Syncope. denzel 13:02 The patient has experienced syncope. Onset: The symptoms/episode began/occurred just denzel prior to arrival, this morning. Duration: This was a single episode, that lasted an unknown period of time. Context: the episode(s) was witnessed, by no one, occurred at home, occurred while the patient was sitting. Associated injury: The patient did not suffer any apparent associated injury. Associated signs and symptoms: The patient has no apparent associated signs or symptoms. Current symptoms: confusion. Historical: - Allergies: 11:49 Codeine (Upset stomach); ss 11:49 meperidine HCl; ss 11:49 Morphine; ss - PMHx: 11:49 CVA; Depression; Diabetes - IDDM; High Cholesterol; GERD; Hypertension; ss - Immunization history:: Adult Immunizations up to date. - Social history:: Smoking status: Patient denies any tobacco usage or history of. ROS: 13:03 Constitutional: Negative for fever, chills, and weight loss, Eyes: Negative for injury, denzel pain, redness, and discharge, ENT: Negative for injury, pain, and discharge, Neck: Negative for injury, pain, and swelling, Cardiovascular: Negative for chest pain, palpitations, and edema, Respiratory: Negative for shortness of breath, cough, wheezing, and pleuritic chest pain, Back: Negative for injury and pain, : Negative for injury, bleeding, discharge, and swelling, MS/Extremity: Negative for injury and deformity, Skin: Negative for injury, rash, and discoloration, Psych: Negative for depression, anxiety, suicide ideation, homicidal ideation, and hallucinations, Allergy/Immunology: Negative for hives, rash, and allergies, Endocrine: Negative for neck swelling, polydipsia, polyuria, polyphagia, and marked weight changes. 13:03 Abdomen/GI: Positive for abdominal pain, of the right upper quadrant, left upper quadrant, right lower quadrant and left lower quadrant. 13:03 Skin: Positive for pallor. 13:03 Neuro: Positive for weakness. Exam: 13:03 Constitutional: This is a well developed, well nourished patient who is awake, alert, denzel and in no acute distress. Head/Face: Normocephalic, atraumatic. Eyes: Pupils equal round and reactive to light, extra-ocular motions intact. Lids and lashes normal. Conjunctiva and sclera are non-icteric and not injected. Cornea within normal limits. Periorbital areas with no swelling, redness, or edema. ENT: Nares patent. No nasal discharge, no septal abnormalities noted. Tympanic membranes are normal and external auditory canals are clear. Oropharynx with no redness, swelling, or masses, exudates, or evidence of obstruction, uvula midline. Mucous membranes moist. Neck: Trachea midline, no thyromegaly or masses palpated, and no cervical lymphadenopathy. Supple, full range of motion without nuchal rigidity, or vertebral point tenderness. No Meningismus. Chest/axilla: Normal chest wall appearance and motion. Nontender with no deformity. No lesions are appreciated. Cardiovascular: Regular rate and rhythm with a normal S1 and S2. No gallops, murmurs, or rubs. Normal PMI, no JVD. No pulse deficits. Respiratory: Lungs have equal breath sounds bilaterally, clear to auscultation and percussion. No rales, rhonchi or wheezes noted. No increased work of breathing, no retractions or nasal flaring. Back: No spinal tenderness. No costovertebral tenderness. Full range of motion. Female : Normal external genitalia. MS/ Extremity: Pulses equal, no cyanosis. Neurovascular intact. Full, normal range of motion. Psych: Awake, alert, with orientation to person, place and time. Behavior, mood, and affect are within normal limits. 13:03 Abdomen/GI: Inspection: distension, Bowel sounds: normal, Palpation: abdomen is soft and non-tender, Liver: no appreciated palpable abnormalities, Hernia: not appreciated. 13:09 Abdomen/GI: Rectal exam: is unremarkable, rectal tone normal, Stool: normal, guaiac denzel negative, hemorrhoid(s), are not appreciated, mass, is not appreciated, swelling, is not appreciated, tenderness, is not appreciated, fecal impaction, is not appreciated. 15:19 ECG was reviewed by the Attending Physician. [facility] Vital Signs: 11:44 Resp 16; Weight 77.11 kg; Height 5 ft. 4 in. (162.56 cm); Pain 0/10; ss 12:30 BP 124 / 110; Pulse 66; Resp 18; Pulse Ox 97% on R/A; ph 13:27 BP 90 / 53; Pulse 52; Resp 16; Pulse Ox 97% on R/A; ph 14:50 BP 107 / 68; Pulse 59; Resp 18; Temp 97.4(TE); Pulse Ox 96% on R/A; ph 16:00 BP 100 / 65; Pulse 91; Resp 18; Pulse Ox 97% on R/A; ph 17:00 BP 102 / 60; Pulse 59; Resp 16; Pulse Ox 98% on R/A; ph 18:00 BP 146 / 78; Pulse 64; Resp 16; Pulse Ox 98% on R/A; ph 21:30 BP 129 / 91; Pulse 65; Resp 16; Temp 97.0; Pulse Ox 98% on R/A; Pain 0/10; jb4 11:44 Body Mass Index 29.18 (77.11 kg, 162.56 cm) ss MDM: 11:54 Patient medically screened. [facility] 13:05 Data reviewed: vital signs, nurses notes, lab test result(s), EKG, radiologic studies, [facility] CT scan, plain films. 13:05 Differential Diagnosis: cardiac arrhythmia, cerebrovascular accident, GI bleed, pseudo denzel seizure, seizure, sepsis, vasovagal episode. Differential diagnosis: bowel obstruction, cholecystitis, Cholelithiasis, diverticulitis, gastritis, gastroesophageal reflux disease, GI Bleed, non-specific abd pain, pancreatitis. Data interpreted: pvc monitor: rate is 64 beats/min, rhythm is normal sinus rhythm, Pulse oximetry: on room air is 96 %. Test interpretation: by ED physician or midlevel provider: ECG, plain radiologic studies. Counseling: I had a detailed discussion with the patient and/or guardian regarding: the historical points, exam findings, and any diagnostic results supporting the discharge/admit diagnosis, lab results, radiology results, the need for further work-up and treatment in the hospital. 03/24 11:55 Order name: Basic Metabolic Panel [facility] 03/24 11:55 Order name: CBC with Diff; Complete Time: 15:15 [facility] 03/24 11:55 Order name: LFT's; Complete Time: 15:15 [facility] 03/24 11:55 Order name: Magnesium; Complete Time: 15:15 [facility] 03/24 11:55 Order name: NT PRO-BNP; Complete Time: 15:15 [facility] 03/24 11:55 Order name: PT-INR; Complete Time: 15:15 [facility] 03/24 11:55 Order name: Troponin (emerg Dept Use Only); Complete Time: 15:15 [facility] 03/24 11:55 Order name: Urine Culture [facility] 03/24 11:56 Order name: Basic Metabolic Panel; Complete Time: 15:15 EDMS 03/24 13:02 Order name: Blood Culture Adult (2) [facility] 03/24 13:21 Order name: Glucose, Ancillary Testing; Complete Time: 15:15 EDMS 03/24 13:27 Order name: Type And Screen; Complete Time: 15:16 ph 03/24 13:33 Order name: Urine Dipstick--Ancillary (enter results); Complete Time: 15:15 em1 03/24 14:16 Order name: CREATININE WHOLE BLOOD; Complete Time: 15:16 EDMS 03/24 11:55 Order name: XRAY Chest (1 view); Complete Time: 13:01 [facility] 03/24 11:55 Order name: EKG; Complete Time: 11:57 [facility] 03/24 11:55 Order name: Cardiac monitoring; Complete Time: 13:58 [facility] 03/24 11:55 Order name: EKG - Nurse/Tech; Complete Time: 13:58 [facility] 03/24 11:55 Order name: IV Saline Lock; Complete Time: 13:58 [facility] 03/24 11:55 Order name: Labs collected and sent; Complete Time: 13:58 [facility] 03/24 11:55 Order name: CT Head Brain wo Cont; Complete Time: 13:01 [facility] 03/24 13:02 Order name: CT Aorta for Dissection; Complete Time: 15:42 [facility] 03/24 14:37 Order name: CBC Smear Scan; Complete Time: 15:16 EDMS 03/24 11:55 Order name: O2 Per Protocol; Complete Time: 12:14 [facility] 03/24 11:55 Order name: O2 Sat Monitoring; Complete Time: 12:14 [facility] 03/24 11:55 Order name: Urine Dipstick-Ancillary (obtain specimen); Complete Time: 13:32 [facility] 03/24 13:05 Order name: Laurita; Complete Time: 13:56 [facility] EC:19 Rate is 64 beats/min. Rhythm is regular. QRS [place] is Normal. [place] interval is normal. QRS denzel interval is normal. QT interval is normal. No Q waves. T waves are Normal. No ST changes noted. Interpreted by me. Reviewed by me. Administered Medications: 13:00 Drug: NS 0.9% 1000 ml Route: IV; Rate: 125 ml/hr; Site: right hand; ph 13:58 Drug: NS 0.9% 500 ml Route: IV; Rate: bolus; Site: right hand; ph 15:15 Follow up: Response: No adverse reaction; IV Status: Completed infusion ph 16:16 Drug: Flagyl 500 mg Volume: 100 ml; Route: IVPB; Rate: 200 ml/hr; Infused Over: 30 ph mins; Site: left antecubital; 16:50 Follow up: Response: No adverse reaction; IV Status: Completed infusion ph 16:17 Drug: Rocephin - (cefTRIAXone) 1 grams Route: IVPB; Infused Over: 30 mins; Site: left ph antecubital; 17:40 Follow up: Response: No adverse reaction; IV Status: Completed infusion ph 22:50 Drug: Ativan 1 mg Route: IVP; Site: right hand; jb4 22:55 Follow up: Response: No adverse reaction; Marked relief of symptoms jb4 Disposition: 03/24/20 15:42 Transfer ordered to [facility]. Diagnosis are Left sided colitis, Abdominal tenderness, Syncope and collapse - near, Type 1 diabetes mellitus, Urinary tract infection, site not specified. - Reason for transfer: Higher level of care. - [facility] - Condition is Fair. - Problem is new. - Symptoms have improved. Signatures: Dispatcher [employer] EDDesmond Ramírez MD MD cha Smirch, Shelby, RN RN Bri Figueredo RN RN Bennett Lindsey RN RN jb4 Corrections: (The following items were deleted from the chart) 15:43 15:42 03/24/2020 15:42 Transfer ordered to [facility]. denzel Diagnosis is Left sided colitis; Abdominal tenderness; Syncope and collapse - near; Type 1 diabetes mellitus. Reason for transfer: Higher level of care. [facility] Condition is Fair. Problem is new. Symptoms have improved. denzel 22:57 15:43 03/24/2020 15:42 Transfer ordered to [facility]. jb4 Diagnosis is Left sided colitis; Abdominal tenderness; Syncope and collapse - near; Type 1 diabetes mellitus; Urinary tract infection, site not specified. Reason for transfer: Higher level of care. [facility] Condition is Fair. Problem is new. Symptoms have improved. denzel
[2020-03-24] MEDS ORDERED: METRONIDAZOLE 500mg IVPB 500 MG/100 ML BAG IV ONE (15:53)
[2020-03-24] MEDS ORDERED: LORazepam 2 MG/ML VIAL ONE (22:33)
[2020-03-24 23:53] VITALS: O2SAT 98
[2020-03-24 23:58] VITALS: BP 129/91; TEMP 97
--- NOTE | 2020-03-25 07:47 | EKG ---
Test Date: 2020-03-24 Test Time: 12:54:20 Graduate Research Assistant: SAMUEL MEASUREMENT RESULTS: Intervals: Rate: 64 IL: 128 QRSD: 144 QT: 512 QTc: 528 [place]: P: 41 IL: 128 QRS: 63 T: 19 INTERPRETIVE STATEMENTS: Sinus rhythm with marked sinus arrhythmia Nonspecific intraventricular block Abnormal ECG Compared to ECG 09/20/2019 16:16:04 First degree AV block no longer present Right bundle-branch block no longer present Electronically Signed On 03-25-20 07:44:39 CDT by Chintan Lopez
== END 2020-03-24 22:57 | disposition short-term general hospital (02) ==
LOC: ER 11:40
DX: K51.50 Left sided colitis without complications (principal); N39.0 Urinary tract infection, site not specified; R10.819 Abdominal tenderness, unspecified site; E10.9 Type 1 diabetes mellitus without complications; I10 Essential (primary) hypertension; Z88.5 Allergy status to narcotic agent; Z88.8 Allergy status to other drugs, medicaments and biological substances
CPT/HCPCS: 96365; 96361; 93005; 87040 ×2; 87088; 85025; 80048; 36415; 86900; 83735; 86850; 85610; 82565; 86901; 82947; 80076; 81003; 84484; 83880; 70450; 71275; 74175; 71045; 51702; 96375; 99285; Q9967; J0696; J7030; 87086

== ENCOUNTER 2020-04-06 12:34 | Emergency (ER) | payer OTHER, MEDICARE ==
[2020-04-06 13:18] LABS: Basophils % 0.4 % (0-1.3); Hematocrit 36.8 % (36.0-45.0); Lymphocytes % 17.8 % (15.3-44.8); MPV 8.1 fL (7.6-11.3); RBC Red Blood Cell Count 4.38 M/uL (3.86-4.86)
--- NOTE | 2020-04-06 13:19 | RAD REPORT ---
EXAM DESCRIPTION: CT - CTHCSPWOC - 04/06/2020 1:09 pm CLINICAL HISTORY: Trauma, head and neck injury. SYNCOPE COMPARISON: Head C Spine Mpr Wo Con dated 06/06/2016; [id number] dated 10/20/2015; CT HEAD CS PINE MPR WO CONTRAST dated 05/21/2015; [id number] dated 12/26/2008 TECHNIQUE: Axial 5 mm thick images of the head were obtained. Axial 2 mm thick images of the cervical spine were obtained with sagittal and coronal reconstruction images generated and reviewed. All CT scans are performed using dose optimization technique as appropriate and may include automated exposure control or mA/KV adjustment according to patient size. FINDINGS: CT HEAD WITHOUT CONTRAST: No acute hemorrhage, hydrocephalus or extra-axial collection is identified.Advanced generalized brain atrophy is present with advanced periventricular and deep white matter chronic microvascular ischemi c changes.No areas of brain edema or midline shift. The paranasal sinuses and mastoids are clear.Several old right-sided ryne holes are present. CT CERVICAL SPINE WITHOUT CONTRAST: No fracture or subluxation.3 mm degenerative anterolisthesis is present of C4 on 5. Prominent degener ative change with posterior osteophyte is present at C5-6.No prevertebral soft tissues swelling is id entified. The odontoid is normal and the lateral masses are symmetric. IMPRESSION: No acute intracranial or cervical spine findings. Significant degenerative changes present in the lower cervical spine, greatest at C5-6.
[2020-04-06 13:21] LABS: Protime INR 1.02
[2020-04-06 13:41] LABS: BUN Blood Urea Nitrogen 21 mg/dL (7-18); Bicarbonate 26 mmol/L (21-32); Glucose Level 208 mg/dL (74-106); Magnesium 2.2 mg/dL (1.8-2.4); Potassium 4.8 mmol/L (3.5-5.1); Sodium Level 134 mmol/L (136-145); Troponin (Emerg Dept Use Only) < 0.02 ng/mL (0.0-0.045)
[2020-04-06 14:44] LABS: Urine Blood NEGATIVE (NEG); Urine Glucose NEGATIVE (NEG); Urine Protein 1+ (NEG)
[2020-04-06 16:09] VITALS: BP 145/71; O2SAT 96
--- NOTE | 2020-04-06 21:31 | ER ---
Nurse's Notes [facility] [place] Name: Skylar Grossman Age: 84 yrs Sex: Female : 1935 Arrival Date: 04/06/2020 Time: 12:28 Bed 7 Private MD: Diagnosis: Syncope and collapse Presentation: 04/06 12:28 Chief complaint: EMS states: syncopal episode while trying to use bathroom, pt has been iw constipated X 4 days, initial BP was 70's systolic, up to 100 systolic after fluids initiated [id number]. Coronavirus screen: Patient denies a cough. Patient denies shortness of breath or difficulty breathing. Patient denies measured and/or subjective temperature greater than 100.4F prior to today's visit. Patient denies travel on a cruise ship or to a country the [facility] currently lists as an affected area. Patient denies contact with known and/or suspected case of COVID-19. Ebola Screen: Patient negative for fever greater than or equal to 101.5 degrees Fahrenheit, and additional compatible Ebola Virus Disease symptoms Patient denies exposure to infectious person. Patient denies travel to an Ebola-affected area in the 21 days before illness onset. No symptoms or risks identified at this time. Initial Sepsis Screen: Does the patient meet any 2 criteria? No. Patient's initial sepsis screen is negative. Does the patient have a suspected source of infection? No. Patient's initial sepsis screen is negative. Risk Assessment: Do you want to hurt yourself or someone else? Patient reports no desire to harm self or others. Onset of symptoms was April 06, 2020. 12:28 Method Of Arrival: EMS: [facility] iw 12:28 Acuity: FARIDA 2 iw Historical: - Allergies: 12:36 Codeine (Upset stomach); iw 12:36 meperidine HCl; iw 12:36 Morphine; iw - Home Meds: 12:36 memantine 5 mg oral tab 1 tabs 2 times per day [Active]; Bystolic 10 mg Oral tab once iw daily [Active]; fluoxetine 20 mg Oral tab 1 tab once daily [Active]; lisinopril 40 mg Oral tab 1 tab once daily [Active]; melatonin 3 mg Oral tab nightly [Active]; omeprazole 20 mg Oral cpDR 1 cap once daily [Active]; simvastatin 20 mg Oral tab 1 tab once daily [Active]; Flomax 0.4 mg Oral cp24 1 cap once daily [Active]; amitriptyline 25 mg oral tab once daily [Active]; amlodipine 10 mg tab 1 tab once daily [Active]; Lantus 100 unit/mL Sub-Q soln 15 unit nightly [Active]; - PMHx: 12:36 CVA; Depression; GERD; Diabetes - IDDM; High Cholesterol; Hypertension; iw - Family history:: not pertinent. - Hospitalizations: : Patient was recently seen at. Screenin:36 Abuse screen: Denies threats or abuse. Denies injuries from another. Nutritional iw screening: No deficits noted. Tuberculosis screening: No symptoms or risk factors identified. Fall Risk Fall in past 12 months (25 points). IV access (20 points). Assessment: 13:04 General: Appears in no apparent distress. Behavior is calm, cooperative. Pain: iw Complains of pain in head and neck. Neuro: Level of Consciousness is awake, alert, obeys commands, Oriented to person, place, time, situation, Moves all extremities. Full function. Cardiovascular: Patient's skin is warm and dry. Rhythm is regular. Respiratory: Respiratory effort is even, unlabored, Respiratory pattern is regular. GI: Abdomen is non-distended. Derm: Skin is fragile, is thin, Skin is pale. Musculoskeletal: Range of motion:. 14:40 Reassessment: Assumed care of patient from ZAYNAB Swartz. vc 14:51 Reassessment: Patient appears in no apparent distress at this time. Patient and/or vc family updated on plan of care and expected duration. Pain level reassessed. Patient is alert, oriented x 3, equal unlabored respirations, skin warm/dry/pink. Patient states feeling better. Patient states symptoms have improved. 15:02 Reassessment: Mariam, sister, [phone]. vc Vital Signs: 12:28 BP 82 / 57; Pulse 62; Resp 16 S; Temp 97.3; Pulse Ox 98% on R/A; iw 13:03 BP 119 / 60; Pulse 64; Resp 16; Pulse Ox 97% on R/A; iw 13:23 BP 104 / 49; Pulse 67; Resp 22; Pulse Ox 98% ; sv 14:02 BP 128 / 84; Pulse 68; Resp 16; Pulse Ox 95% on R/A; iw 14:33 BP 145 / 71; Pulse 74; Resp 16 S; Pulse Ox 96% on R/A; iw ED Course: 12:28 Patient arrived in ED. iw 12:31 Kareem Atkinson MD is Attending Physician. rn 12:31 Triage completed. iw 12:36 Maintain EMS IV. Dressing intact. Good blood return noted. Site clean \T\ dry. Gauge \T\ iw site: 22 right index finger. 12:38 Sheridan Tapia RN is Primary Nurse. iw 12:38 Arm band placed on. iw 13:09 Head C Spine Mpr Wo Con In Process Unspecified. EDMS 13:34 Straight cath inserted, using sterile technique, 14 Fr. Returned clear yellow urine. 3 Patient tolerated well. 13:43 Urine Dipstick--Ancillary (enter results) Sent. sv 13:50 EKG done, by ED staff, reviewed by Kareem Atkinson MD. [facility] 14:51 Primary Nurse role handed off by Sheridan Tapia RN vc 14:51 Lakisha Garcia RN is Primary Nurse. vc 15:55 No provider procedures requiring assistance completed. IV discontinued, intact, vc bleeding controlled, No redness/swelling at site. Pressure dressing applied. Administered Medications: 13:14 Drug: NS 0.9% 500 ml Route: IV; Rate: bolus; Site: right antecubital; sv 15:03 Follow up: IV Status: Completed infusion; IV Intake: 500ml vc Intake: 15:03 IV: 500ml; Total: 500ml. vc Outcome: 14:53 Discharge ordered by MD. rn 15:55 Patient left the ED. sv 15:55 Discharged to home via wheelchair. vc 15:55 Condition: good 15:55 Discharge instructions given to patient, family, Instructed on discharge instructions, follow up and referral plans. Demonstrated understanding of instructions, follow-up care. Signatures: Dispatcher [employer] EDMS Rita Koroma RN RN Sheridan Tapia RN RN Kareem Atkinson MD MD rn Herrera, Deanna [facility] Lakisha Garcia RN RN vc Corrections: (The following items were deleted from the chart) 14:51 14:49 Hospitalizations: No recent hospitalization is reported. rn zaynab
--- NOTE | 2020-04-06 21:31 | EDPHYS ---
Physician Documentation [facility] Name: Skylar Grossman Age: 84 yrs Sex: Female : 1935 Arrival Date: 04/06/2020 Time: 12:28 Bed 7 Private MD: ED Physician Kareem Atkinson HPI: 04/06 14:49 This 84 yrs old Female presents to ER via EMS with complaints of Syncope. rn 14:49 The patient has experienced syncope. Onset: The symptoms/episode began/occurred just rn prior to arrival. Duration: This was a single episode. Associated signs and symptoms: The patient has no apparent associated signs or symptoms. Current symptoms: Currently, the patient is not experiencing any symptoms. The patient has experienced similar episodes in the past. Pt with multiple previous visits for syncope including vasovagal syncope and orthostatic hypotension. Reports recent colitis and abd issues that are improving, but today on toilet, straining, passed out, doesn't remember much, no injuries. No fever. Otherwise feeling fine. No chest pain/sob/abd pain/focal neuro complaint. Now asymptomatic. BP low for EMS, now normal. . Historical: - Allergies: 12:36 Codeine (Upset stomach); iw 12:36 meperidine HCl; iw 12:36 Morphine; iw - Home Meds: 12:36 memantine 5 mg oral tab 1 tabs 2 times per day [Active]; Bystolic 10 mg Oral tab once iw daily [Active]; fluoxetine 20 mg Oral tab 1 tab once daily [Active]; lisinopril 40 mg Oral tab 1 tab once daily [Active]; melatonin 3 mg Oral tab nightly [Active]; omeprazole 20 mg Oral cpDR 1 cap once daily [Active]; simvastatin 20 mg Oral tab 1 tab once daily [Active]; Flomax 0.4 mg Oral cp24 1 cap once daily [Active]; amitriptyline 25 mg oral tab once daily [Active]; amlodipine 10 mg tab 1 tab once daily [Active]; Lantus 100 unit/mL Sub-Q soln 15 unit nightly [Active]; - PMHx: 12:36 CVA; Depression; GERD; Diabetes - IDDM; High Cholesterol; Hypertension; iw - Family history:: not pertinent. - Hospitalizations: : Patient was recently seen at. ROS: 14:49 Constitutional: Negative for fever, chills, and weight loss, Eyes: Negative for injury, rn pain, redness, and discharge, Neck: Negative for injury, pain, and swelling, Cardiovascular: Negative for chest pain, palpitations, and edema, Respiratory: Negative for shortness of breath, cough, wheezing, and pleuritic chest pain, Abdomen/GI: + constipation MS/Extremity: Negative for injury and deformity, Skin: Negative for injury, rash, and discoloration, Neuro: Negative for headache, weakness, numbness, tingling, and seizure. Exam: 14:30 ECG was reviewed by the Attending Physician. rn 14:49 Constitutional: This is a well developed, well nourished patient who is awake, alert, rn and in no acute distress. Head/Face: Normocephalic, atraumatic. ENT: dry MM Cardiovascular: Regular rate and rhythm. No pulse deficits. Respiratory: No increased work of breathing, no retractions or nasal flaring. Abdomen/GI: soft, non-tender MS/ Extremity: Pulses equal, no cyanosis. Neurovascular intact. Full, normal range of motion. Equal circumference. Neuro: Awake and alert, GCS 15, oriented to person, place, time, and situation. Cranial nerves II-XII grossly intact. Motor strength 5/5 in all extremities. Sensory grossly intact. Vital Signs: 12:28 BP 82 / 57; Pulse 62; Resp 16 S; Temp 97.3; Pulse Ox 98% on R/A; iw 13:03 BP 119 / 60; Pulse 64; Resp 16; Pulse Ox 97% on R/A; iw 13:23 BP 104 / 49; Pulse 67; Resp 22; Pulse Ox 98% ; sv 14:02 BP 128 / 84; Pulse 68; Resp 16; Pulse Ox 95% on R/A; iw 14:33 BP 145 / 71; Pulse 74; Resp 16 S; Pulse Ox 96% on R/A; iw MDM: 12:31 Patient medically screened. rn 14:49 Differential Diagnosis: cardiac arrhythmia, emotional response, idiopathic syncope, rn vasovagal episode. Data reviewed: vital signs, nurses notes, lab test result(s), EKG, radiologic studies, CT scan, and as a result, I will discharge patient. Counseling: I had a detailed discussion with the patient and/or guardian regarding: the historical points, exam findings, and any diagnostic results supporting the discharge/admit diagnosis, lab results, radiology results, the need for outpatient follow up, to return to the emergency department if symptoms worsen or persist or if there are any questions or concerns that arise at home. Response to treatment: the patient's symptoms have resolved after treatment, the patient's condition has returned to base line, the patient is now symptom free, and as a result, I will discharge patient. Special discussion: I discussed with the patient/guardian in detail that at this point there is no indication for admission to the hospital. It is understood, however, that if the symptoms persist or worsen the patient needs to return immediately for re-evaluation. ED course: Spoke with sister and patient, both state "happens all the time", no acute findings in w/u today, will dc home given asymptomatic, normalization of BP even prior to arrival, and normal neuro exam. CT head/neck neg. . 04/06 12:37 Order name: Basic Metabolic Panel; Complete Time: 14:29 rn 04/06 12:37 Order name: CBC with Diff; Complete Time: 13:22 rn 04/06 12:37 Order name: Magnesium; Complete Time: 14:29 rn 04/06 12:37 Order name: Protime (+inr); Complete Time: 14:29 rn 04/06 12:37 Order name: Ptt, Activated; Complete Time: 14:29 rn 04/06 12:37 Order name: Troponin (emerg Dept Use Only); Complete Time: 14:29 rn 04/06 12:37 Order name: EKG; Complete Time: 12:37 rn 04/06 12:37 Order name: Cardiac monitoring; Complete Time: 12:39 rn 04/06 12:37 Order name: EKG - Nurse/Tech; Complete Time: 13:51 rn 04/06 12:37 Order name: IV Saline Lock; Complete Time: 12:41 rn 04/06 13:05 Order name: Head C Spine Mpr Wo Con; Complete Time: 13:22 EDMS 04/06 13:42 Order name: Urine Dipstick--Ancillary (enter results); Complete Time: 14:46 mt 04/06 12:37 Order name: Labs collected and sent; Complete Time: 13:05 rn 04/06 12:37 Order name: NPO; Complete Time: 12:41 rn 04/06 12:37 Order name: O2 Per Protocol; Complete Time: 12:41 rn 04/06 12:37 Order name: O2 Sat Monitoring; Complete Time: 12:41 rn 04/06 12:37 Order name: Urine Dipstick-Ancillary (obtain specimen); Complete Time: 13:39 rn EC:30 Rate is 63 beats/min. Rhythm is regular. QRS [place] is Normal. MD interval is normal. QRS rn interval is normal. QT interval is normal. No Q waves. T waves are Normal. No ST changes noted. Clinical impression: NSR w/ Non-specific ST/T Changes. Interpreted by me. Reviewed by me. Administered Medications: 13:14 Drug: NS 0.9% 500 ml Route: IV; Rate: bolus; Site: right antecubital; sv 15:03 Follow up: IV Status: Completed infusion; IV Intake: 500ml vc Disposition: 04/06/20 14:53 Discharged to Home. Impression: Syncope and collapse. - Condition is Stable. - Discharge Instructions: Syncope. - Medication Reconciliation Form, Thank You Letter, Antibiotic Education, Prescription Opioid Use form. - Follow up: Private Physician; When: As needed; Reason: Recheck today's complaints, Re-evaluation by your physician. - Problem is new. - Symptoms have improved. Signatures: Dispatcher [employer] Rita Flanagan RN RN sv Williams, Irene, RN RN iw Nieto, Roman, MD MD rn Calcote, Vanessa RN vc Corrections: (The following items were deleted from the chart) 13:05 12:37 Head Brain Wo Cont+CT.RAD.BRZ ordered. EDND EDND 14:51 14:49 Hospitalizations: No recent hospitalization is reported. rn rn 15:55 14:53 04/06/2020 14:53 Discharged to Home. Impression: Syncope and collapse. Condition sv is Stable. Forms are Medication Reconciliation Form, Thank You Letter, Antibiotic Education, Prescription Opioid Use. Follow up: Private Physician; When: As needed; Reason: Recheck today's complaints, Re-evaluation by your physician. Problem is new. Symptoms have improved. rn
--- OUTSIDE RECORDS SUMMARY | 2020-04-06 21:33 | XMS REPORT | Clinical Summary ---
:1935 Author Organization [facility] Address [address] [place] [address] Care Team Providers Name Role Phone Pcp Primary Care Provider Unavailable Allergies Active Allergy Reactions Severity Noted Date Comments Codeine 03/25/2020 Meperidine 03/25/2020 Morphine 03/25/2020 Medications Medication Sig Dispensed Refills Start End Date Status Date fLUoxetine Take 20 mg by 0 Activ e (PROZAC) 20 MG mouth daily. 9 capsule lisinopriL Take 40 mg by 0 Activ e (PRINIVIL,ZESTRIL) mouth Daily 5 40 MG tablet (1800). simvastatin Take 20 mg by 0 Acti ve (ZOCOR) 20 MG mouth nightly. 0 tablet tamsulosin Take 0.4 mg by 0 Acti ve (FLOMAX) 0.4 mg mouth Daily 0 Cap 24 hr capsule (1800). omeprazole Take 20 mg by 0 Activ e (PRILOSEC) 20 MG mouth daily. 0 capsule BYSTOLIC 10 mg Take 10 mg by 0 A ctive tablet mouth daily. 0 melatonin 3 mg Tab Take 3 mg by mouth 0 Active tablet nightly. 9 memantine Take 1 tablet (5 0 03/29/20 Act sudeep (NAMENDA) 5 MG mg total) by mouth 0 21 tablet 2 (two) times daily. gabapentin Take 1 capsule 30 capsule 0 04/28/20 Act sudeep (NEURONTIN) 300 MG (300 mg total) by 0 20 capsule mouth nightly for 30 days. amitriptyline Take 1 tablet (25 30 tablet 0 04/28/20 Active (ELAVIL) 25 MG mg total) by mouth 0 20 tablet nightly for 30 days. hydrALAZINE Take 1 tablet (25 90 tablet 0 04/28/20 Active (APRESOLINE) 25 MG mg total) by mouth 0 20 tablet every 8 (eight) hours for 30 days. amLODIPine Take 1 tablet (10 30 tablet 0 04/28/20 A ctive (NORVASC) 10 MG mg total) by mouth 0 20 tablet daily for 30 days. insulin glargine Inject 15 Units 0 Active (LANTUS SOLOSTAR subcutaneously 0 U-100 INSULIN) 100 nightly. unit/mL (3 mL) InPn amitriptyline Take 100 tablets 0 03/25/20 Discontinued (ELAVIL) 100 MG by mouth nightly. 9 20 tablet gabapentin Take 300 tablets 0 03/29/20 Di scontinued enacarbil 300 mg by mouth 3 (three) 9 20 TbER times daily. metFORMIN Take 500 mg by 0 03/29/20 Disco ntinued (GLUCOPHAGE) 500 mouth 2 (two) 0 20 MG tablet times daily. clopidogreL Take 75 mg by 0 03/29/20 Disc ontinued (PLAVIX) 75 mg mouth daily. 0 20 tablet cloNIDine HCL Take 0.1 tablets 0 03/29/20 Discontinued (CATAPRES) 0.1 MG by mouth 3 (three) 0 20 tablet times daily as needed for High Blood Pressure. Active Problems Problem Noted Date Acute encephalopathy 03/26/2020 Vasovagal syncope 03/25/2020 Colitis 03/25/2020 Syncope 03/25/2020 Encounters Date Type Specialty Care Team Description 03/31/2020 Telephone Geriatric Medicine [place] 48-hr pos t-discharge MD Maegan phone call 03/27/2020 Orders Only General Internal Medicine 03/24/2020 - Hospital Encounter General Internal Marcin Fox is (Primary Dx); 03/29/2020 Medicine Derik Man MD Vasovagal syncope; Grace, Acute encephalo nina; MD Patricio History of sheldon ntia; Essential hyper tension; Type 2 diabetes mellitus without complication, without long-term current use of insulin (HCC); Dementia withou t behavioral disturbance, unspecified dementia type (HCC); Polypharmacy after 04/06/2019 Family History Medical History Relation Name Comments High blood pressure Father Relation Name Status Comments Father Social History Tobacco Use Types Packs/Day Years Used Date Never Smoker Smokeless Tobacco: Never Used Alcohol Use Drinks/Week oz/Week Comments No Alcohol Habits Answer Date Recorded How often do you have a drink containing alcohol? Never 03/26/2020 How many drinks containing alcohol do you have on a typical Not asked day when you are drinking? How often do you have six or more drinks on one occasion? No t asked Sex Assigned at Date Recorded Not on file Job Start Date Occupation Industry Not on file Not on file Not on file Travel History Travel Start Travel End No recent travel history available. Last Filed Vital Signs Vital Sign Reading Time Taken Blood Pressure 152/98 03/29/2020 11:13 AM CDT Pulse 94 03/29/2020 11:13 AM CDT Temperature 36.3 C (97.3 F) 03/29/2020 11:13 AM CDT Respiratory Rate 22 03/29/2020 11:13 AM CDT Oxygen Saturation 95% 03/29/2020 11:13 AM CDT Inhaled Oxygen Concentration - - Weight 76.7 kg (169 lb) 03/29/2020 7:13 AM CDT Height - - Body Mass Index - - Plan of Treatment Health Maintenance Due Date Last Done Comments DIABETIC EYE EXAM 1945 DIABETIC FOOT EXAM 1945 URINE MICROALBUMIN 1945 MEDICARE ANNUAL WELLNESS (YEAR 2 or FIRST 11/11/1999 YEAR if no IPPE) PNEUMOCOCCAL 65+ LOW/MEDIUM RISK (1 of 2 - 2002 PCV13) INFLUENZA VACCINE (#1) 2020 08/02/2017, 08/14/2015 HEMOGLOBIN A1C 09/25/2020 03/25/2020 Procedures Procedure Name Priority Date/Time Associated Comments Diagnosis RHYTHM STRIP - SCAN 04/02/2020 4:10 PM CDT RHYTHM STRIP - SCAN 04/01/2020 12:01 PM CDT POCT-GLUCOSE METER Routine 03/29/2020 11:19 Resul ts for this AM CDT procedure are i n the results section. POCT-GLUCOSE METER Routine 03/29/2020 7:25 Resul ts for this AM CDT procedure are i n the results section. CBC W/PLT COUNT & Routine 03/29/2020 5:51 Result s for this AUTO DIFFERENTIAL AM CDT procedure are in the results section. CBC W/PLT COUNT & Routine 03/29/2020 5:51 Result s for this AUTO DIFFERENTIAL AM CDT procedure are in the results section. POCT-GLUCOSE METER Routine 03/28/2020 10:02 Resul ts for this PM CDT procedure are i n the results section. POCT-GLUCOSE METER Routine 03/28/2020 4:32 Resul ts for this PM CDT procedure are i n the results section. POCT-GLUCOSE METER Routine 03/28/2020 12:00 Resul ts for this PM CDT procedure are i n the results section. POCT-GLUCOSE METER Routine 03/28/2020 8:06 Resul ts for this AM CDT procedure are i n the results section. CBC W/PLT COUNT & Routine 03/28/2020 3:47 Result s for this AUTO DIFFERENTIAL AM CDT procedure are in the results section. CBC W/PLT COUNT & Routine 03/28/2020 3:47 Result s for this AUTO DIFFERENTIAL AM CDT procedure are in the results section. 2D ECHO W/ DOPPLER Routine 03/27/2020 10:17 Resul ts for this (CW/PW/COLOR) PM CDT procedure are in the results section. POCT-GLUCOSE METER Routine 03/27/2020 4:00 Resul ts for this PM CDT procedure are i n the results section. ECG 12-LEAD Routine 03/27/2020 2:30 PM CDT Procedure Note - Interface, External Ris In - 03/27/2020 2:35 PM CDT Ventricular Rate 89 BPM Atrial Rate 89 BPM P-R Interval 212 ms QRS Duration 140 ms Q-T Interval 442 ms QTC Calculation(Bazett) 537 ms P Lamar 73 degrees R Lamar 23 degrees T Lamar 17 degrees Sinus rhythm with 1st degree A-V block Right bundle branch block Abnormal ECG No previous ECGs available ECG 12-LEAD Routine 03/27/2020 2:30 PM CDT Resu lts for this procedure are i n the results section . POCT-GLUCOSE METER Routine 03/27/2020 11:47 AM CDT Results for this procedure are i n the results section . POCT-GLUCOSE METER Routine 03/27/2020 7:34 AM CDT Results for this procedure are i n the results section . CBC W/PLT COUNT & AUTO Routine 03/27/2020 6:32 AM CDT Results for this DIFFERENTIAL procedure are i n the results section . CBC W/PLT COUNT & AUTO Routine 03/27/2020 6:32 AM CDT Results for this DIFFERENTIAL procedure are i n the results section . MAGNESIUM Routine 03/27/2020 5:02 AM CDT Resu lts for this procedure are i n the results section . HEPATIC FUNCTION PANEL Routine 03/27/2020 5:02 AM CDT Results for this procedure are i n the results section . BASIC METABOLIC PANEL (7) Routine 03/27/2020 5:02 AM CDT Results for this procedure are i n the results section . POCT-GLUCOSE METER Routine 03/26/2020 9:36 PM CDT Results for this procedure are i n the results section . CT BRAIN WITHOUT IV STAT 03/26/2020 6:04 PM CDT Results for this CONTRAST procedure are i n the results section . POCT-GLUCOSE METER Routine 03/26/2020 5:18 PM CDT Results for this procedure are i n the results section . POCT-GLUCOSE METER Routine 03/26/2020 11:42 AM CDT Results for this procedure are i n the results section . POCT-GLUCOSE METER Routine 03/26/2020 7:00 AM CDT Results for this procedure are i n the results section . CBC W/PLT COUNT & AUTO Routine 03/26/2020 4:45 AM CDT Results for this DIFFERENTIAL procedure are i n the results section . MAGNESIUM Routine 03/26/2020 4:45 AM CDT Resu lts for this procedure are i n the results section . HEPATIC FUNCTION PANEL Routine 03/26/2020 4:45 AM CDT Results for this procedure are i n the results section . BASIC METABOLIC PANEL (7) Routine 03/26/2020 4:45 AM CDT Results for this procedure are i n the results section . CBC W/PLT COUNT & AUTO Routine 03/26/2020 4:45 AM CDT Results for this DIFFERENTIAL procedure are i n the results section . POCT-GLUCOSE METER Routine 03/25/2020 9:01 PM CDT Results for this procedure are i n the results section . POCT-GLUCOSE METER Routine 03/25/2020 5:31 PM CDT Results for this procedure are i n the results section . POCT-GLUCOSE METER Routine 03/25/2020 11:09 AM CDT Results for this procedure are i n the results section . HEMOGLOBIN A1C Routine 03/25/2020 9:44 AM CDT Re sults for this procedure are i n the results section . TSH/FREE T4 IF INDICATED Routine 03/25/2020 9:44 AM CDT Results for this procedure are i n the results section . PHOSPHORUS Routine 03/25/2020 9:44 AM CDT Resu lts for this procedure are i n the results section . MAGNESIUM Routine 03/25/2020 9:44 AM CDT Resu lts for this procedure are i n the results section . HEPATIC FUNCTION PANEL Routine 03/25/2020 9:44 AM CDT Results for this procedure are i n the results section . BASIC METABOLIC PANEL (7) Routine 03/25/2020 9:44 AM CDT Results for this procedure are i n the results section . TROPONIN I STAT 03/25/2020 9:44 AM CDT Resu lts for this procedure are i n the results section . POCT-GLUCOSE METER Routine 03/25/2020 8:59 AM CDT Results for this procedure are i n the results section . C. DIFFICILE GDH TOXIN Routine 03/25/2020 5:47 AM CDT Results for this procedure are i n the results section . STOOL PATH CHARGE Routine 03/25/2020 5:46 AM CDT Results for this procedure are i n the results section . SHIGA TOXIN SCREEN Routine 03/25/2020 5:46 AM CDT Results for this procedure are i n the results section . STOOL CULTURE + SHIGA TOXIN Routine 03/25/2020 5:46 AM CDT Results for this procedure are i n the results section . URINALYSIS MICROSCOPIC Routine 03/25/2020 5:45 AM CDT Results for this procedure are i n the results section . URINALYSIS WITH MICROSCOPIC Routine 03/25/2020 5:45 AM CDT Results for this IF INDICATED procedure are i n the results section . POCT-GLUCOSE METER Routine 03/25/2020 4:57 AM CDT Results for this procedure are i n the results section . XR CHEST 1 VIEW Routine 03/25/2020 4:22 AM CDT R esults for this PORTABLE/BEDSIDE procedure a re in the results section . SARS-COV2/RT-PCR ([facility] & Routine 03/25/2020 2:42 AM CDT Results for this REF LABS) procedure are i n the results section . after 04/06/2019 Results RHYTHM STRIP - SCAN (04/02/2020 4:10 PM CDT)Only the most recent of2 results within the time period is included. Narrative Performed At This result has an attachment that is no t available. POC-Glucose meter (03/29/2020 11:19 AM CDT)Only the most recent of18 results within the time period is included. POC-Glucose Meter 235 (H)Comment: : TESTED 70 - 110 mg/dL [facility] [address] [place] [address] [facility], [address]: Real Estate Economist/Insurance Adjustor ID = [id number] for QUEEN NATARAJAN [facility] Blood Performing Organization Address City/State/Zipcode Phone Number [address] [phone] CENTER CBC with platelet count + automated diff (03/29/2020 5:51 AM CDT)Only the most recent of4 resultswithin the time period is included. WBC 6.6 3.5 - 10.5 K/L [facility] RBC 4.46 3.93 - 5.22 M/L [facility] Hemoglobin 12.1 11.2 - 15.7 GM/DL [facility] Hematocrit 37.8 34.1 - 44.9 % [facility] MCV 84.8 79.4 - 94.8 fL [facility] MCH 27.1 25.6 - 32.2 pg [facility] MCHC 32.0 (L) 32.2 - 35.5 GM/DL [facility] RDW 13.5 11.7 - 14.4 % [facility] Platelets 291 150 - 450 K/CU MM [facility] MPV 9.3 (L) 9.4 - 12.3 fL [facility] nRBC 0 0 - 0 /100 WBC [facility] % Neutros 51 % [facility] % Lymphs 34 % [facility] % Monos 11 % [facility] % Eos 2 % [facility] % Baso 1 % [facility] # Neutros 3.37 1.56 - 6.13 K/L [facility] # Lymphs 2.27 1.18 - 3.74 K/L [facility] # Monos 0.75 (H) 0.24 - 0.36 K/L [facility] # Eos 0.14 0.04 - 0.36 K/L [facility] # Baso 0.03 0.01 - 0.08 K/L [facility] Immature Granulocytes-Relative 1 0 - 1 % C HI [facility] Specimen Blood Performing Organization Address City/State/Zipcode Phone Number [facility] [address] [place] [address] CENTER 2D Echo W/Doppler(CW/PW/Color) (03/27/2020 10:17 PM CDT) Ejection Fraction [facility] Specimen Narrative Performed At Transthoracic Echocardiography Report (T TE) [facility] Demographics Patient NameMCARTHUR, MILDREDDate of Study03/27/2020 REBAE Gender Female Visit [id number] Race Unknown [id number] Number Date of 1935 [facility] MD Age 84 year(s) SonographerLorenzo richardson Hanging Flags Decorator Jay Tinsley Interpreting Physician HARVEY Odom Procedure Type of Study TTE procedure:2DECHO W DOPPLER(CW/PW/COLOR) (Routine) Indications:Unexplained Pre-syncope/Sync ope. Clinical History HGB 12.4 HCT 37.5 % CVA, HTN, OS, DEMENTIA Height: 64 inches Weight: 68.04 kg (150 lbs) BSA: 1.73 m^2 BMI: 25.75 kg/m^2 HR: 79 bpm BP: 144/81 mmHg Summary The left ventricle is chamber size (by PSLAX dimension) is normal (female - LVIDd 3.8-5.2cm) . Normal LV wall thickness. The LV apex is incompletely visualized due to foreshortening. Anterior wall and anterior apex not well seen; the other segments contract normally . Global LV systolic function normal . Estimated LVEF by qualitative assessment is normal (>60%) . Septal motion is abnormal, likely related to conduction abnormality . Grade 1 diastolic dysfunction (impaired relaxation and low-normal LA pressure). The estimated RA pressure by IVC dynamics 0-5mmHg . Unable to estimate peak systolic PA pressure; inadequate TR velocity signal. No significant valve disease detected. No significant pericardial effusion is visualized. The right ventricular chamber size and systolic function are within normal limits. Previous Study No prior exam available for comparison. Signature Findings Left Ventricle The left ventricle is chamber size (by PSLAX di mension) is normal (female - LVIDd 3.8-5 .2cm) . No rmal LV wall thickness. Th e LV apex is incompletely visualized due to fo reshortening. An terior wall and anterior apex not well s een; the ot her segments contract normally . Gl obal LV systolic function normal . Es timated LVEF by qualitative assessment i s normal (> 60%) . Se ptal motion is abnormal, likely related to co nduction abnormality . Gr enrico 1 diastolic dysfunction (impaired re laxation an d low-normal LA pressure). Left AtriumLA size is normal (16-34 ml/m2) . Right VentricleThe right ventricular chamber size and systolic fu nction are within normal limits. Right Atrium RA cavity size is normal . Atrial SeptumA patent foramen ovale (PFO) is suspected by color Do ppler. Aortic Valve Mild AoV cusp thickening. A trace of aortic regurgitation. Mitral Valve Mild mitral annular calcification. Mi ld MV leaflet thickening. Tricuspid ValveUnable to estimate peak systolic PA pressure; in adequate TR velocity signal. Pulmonic Valve PV is not well visualized; function appears normal by Doppler visualized. AortaAortic root size (SInus of Valsalva diameter) i s no rmal . PericardiumNo significant pericardial effusion is visualized. IVC/SVC/PA/PV/PleuralThe estimated RA pressure by IVC dynamics 0-5mmHg . Chambers/Structures Left Atrium LA Volume: 48.75 ml LA Area: 18.18 cm^2 LA Vol. Index: 28 ml/m^2 Left Ventricle LVIDd: 4.9 cm LVED V:92.57 ml LV Septum Diastolic: 1.04 cm LV PW Diastolic: 0.97 cm LVOT Diameter: 2.02 cm Right Ventricle TAPSE: 1.53 cm Aorta Ao Root S of Lashawn.: 3.06 cm Doppler/Quantitative Measurements Mitral Valve MV Peak E-Wave: 0.29 m/sMV Peak A-Wave: 1.11 m/s E/A Ratio: 0. 26 Peak Gradient: 0.33 mmHg Deceleration Time: 183.5 msec MV Rogelio. Peak: Tissue Doppler E' Septal Velocity: 0.04 m/sE/E': 4.38 E' Lateral Velocity: 0.07 m/s Aortic Valve Peak Velocity: 1.42 m/sMean Velocity: 1 m/s Peak Gradient: 8.02 mmHg Mean Gradient: 4.56 mmHg AV Area (continuity): 2.63 cm^2 AV VTI: 23.69 cm AV DVI: 0.82 LVOT Peak Velocity: 1.07 m/s Peak Gradient: 4.58 mmHg Mean Velocity: 0.79 m/s Mean Gradient: 2.79 mmHg LVOT Diameter: 2.02 cmLVOT VTI: 19.43 cm LVOT Area: 3.2 cm^2 LVOT SV:62.24 ml LVOT CO: 4.92 l/min LVOT CI: 2.84 l/min/m^2 Procedure Note Interface, External Ris In - 03/28/2020 9:15 AM CDT Transthoracic Echocardiography Report (TTE) Demographics Patient Name SWAPNA GARCÍA Date o f Study 03/27/2020 JAMES Gender Female Visit Number [id number] Race Unknown Room N colin 935 Number Date of 1935 Referr pamela Mancia MD Age 84 year(s) Sonogr apher Lorenzo Elizabeth Hanging Flags Decorator Jay Tinsley Interp reting Kory Crawford MD Procedure Type of Study TTE procedure:2DECHO W DOPPLE R(CW/PW/COLOR) (Routine) Indications:Unexplained Pre-syncope/Sync ope. Clinical History HGB 12.4 HCT 37.5 % CVA, HTN, OS, DEMENTIA Height: 64 inches Weight: 68.04 kg (150 lbs) BSA: 1.73 m^2 BMI: 25.75 kg/m^2 HR: 79 bpm BP: 144/81 mmHg Summary The left ventricle is chamber size (by PSLAX dimension) is normal (female - LVIDd 3.8-5.2cm) . Normal LV wall thickness. The LV apex is incompletely visualized due to foreshortening. Anterior wall and anterior apex not wel l seen; the other segments contract normally . Global LV systolic function normal . Estimated LVEF by qualitative assessmen t is normal (>60%) . Septal motion is abnormal, likely relat ed to conduction abnormality . Grade 1 diastolic dysfunction (impaired relaxation and low-normal LA pressure). The estimated RA pressure by IVC dynami cs 0-5mmHg . Unable to estimate peak systolic PA pre ssure; inadequate TR velocity signal. No significant valve disease detected. No significant pericardial effusion is visualized. The right ventricular chamber size and systolic function are within normal limits. Previous Study No prior exam available for comparison. Signature Findings Left Ventricle The left ventric le is chamber size (by PSLAX dimension) is no rmal (female - LVIDd 3.8-5.2cm) . Normal LV wall t hickness. The LV apex is i ncompletely visualized due to foreshortening. Anterior wall an d anterior apex not well seen; the other segments c ontract normally . Global LV systol ic function normal . Estimated LVEF b y qualitative assessment is normal (>60%) . Septal motion is abnormal, likely related to conduction abnor mality . Grade 1 diastoli c dysfunction (impaired relaxation and low-normal L A pressure). Left Atrium LA size is jasmyne l (16-34 ml/m2) . Right Ventricle The right ventri cular chamber size and systolic function are wit hin normal limits. Right Atrium RA cavity size i s normal . Atrial Septum A patent foramen ovale (PFO) is suspected by color Doppler. Aortic Valve Mild AoV cusp th ickening. A trace of aorti c regurgitation. Mitral Valve Mild mitral cathi lar calcification. Mild MV leaflet thickening. Tricuspid Valve Unable to estima te peak systolic PA pressure; inadequate TR ve locity signal. Pulmonic Valve PV is not well v isualized; function appears normal by Doppler visua lized. Aorta Aortic root size (SInus of Valsalva diameter) is normal . Pericardium No significant p ericardial effusion is visualized. IVC/SVC/PA/PV/Pleural The estimated RA pressure by IVC dynamics 0-5mmHg . Chambers/Structures Left Atrium LA Volume: 48.75 ml LA Area: 18.18 cm^2 LA Vol. Index: 28 ml/m^2 Left Ventricle LVIDd: 4.9 cm LVEDV:92.57 ml LV Septum Diastolic: 1.04 cm LV PW Diastolic: 0.97 cm LVOT Diameter: 2.02 cm Right Ventricle TAPSE: 1.53 cm Aorta Ao Root S of Lashawn.: 3.06 cm Doppler/Quantitative Measurements Mitral Valve MV Peak E-Wave: 0.29 m/s M V Peak A-Wave: 1.11 m/s E /A Ratio: 0.26 P eak Gradient: 0.33 mmHg D eceleration Time: 183.5 msec MV Rogelio. Peak: Tissue Doppler E' Septal Velocity: 0.04 m/s E /E': 4.38 E' Lateral Velocity: 0.07 m/s Aortic Valve Peak Velocity: 1.42 m/s Mean Velocity: 1 m/s Peak Gradient: 8.02 mmHg Mean Gradient: 4.56 mmHg AV Area (continuity): 2.63 cm^2 AV VTI: 23.69 cm AV DVI: 0.82 LVOT Peak Velocity: 1.07 m/s Pea k Gradient: 4.58 mmHg Mean Velocity: 0.79 m/s Sophie n Gradient: 2.79 mmHg LVOT Diameter: 2.02 cm LVO T VTI: 19.43 cm LVOT Area: 3.2 cm^2 LVO T SV:62.24 ml LVOT CO: 4.92 l/min LVO T CI: 2.84 l/min/m^2 Performing Organization Address [facility] Phone Number [facility]ART[facility] MK[facility]ON CPACS ECG 12 lead (03/27/2020 2:30 PM CDT) Specimen Narrative Performed At Ventricular Rate 89 BPM GE MUSE Atrial Rate 89 BPM P-R Interval 212 ms QRS Duration 140 ms Q-T Interval 442 ms QTC Calculation(Bazett) 537 ms P Lamar 73 degrees R Lamar 23 degrees T Lamar 17 degrees Sinus rhythm with 1st degree A-V block Right bundle branch block Prolonged QT Abnormal ECG No previous ECGs available Confirmed by MD MELENDEZ YOCHAI ([id number]) on 03/29/2020 5:30:01 PM Procedure Note Interface, External Ris In - 03/29/2020 5:30 PM CDT Ventricular Rate 89 BPM Atrial Rate 89 BPM P-R Interval 212 ms QRS Duration 140 ms Q-T Interval 442 ms QTC Calculation(Bazett) 537 ms P Lamar 73 degrees R Lamar 23 degrees T Lamar 17 degrees Sinus rhythm with 1st degree A-V block Right bundle branch block Prolonged QT Abnormal ECG No previous ECGs available Confirmed by MD MELENDEZ YOCHAI ([id number]) on 03/29/2020 5:30:01 PM Performing Organization Address City/[facility]/Zipcode Phone Number GE ERI Magnesium (03/27/2020 5:02 AM CDT)Only the most recent of3 resultswithin the time period is included. Magnesium 1.7Comment: Specimen slightly 1.6 - 2.6 mg/dL [facility] hemolyzed [facility]ENTER Specimen Blood Narrative Performed At Real Estate Economist ID - LATA Sun [facility] Performing Organization Address [facility] Phone Number [address] [address] CENTER Hepatic function panel (03/27/2020 5:02 AM CDT)Only the most recent of3 results within the time period is included. Protein, Total 7.3Comment: Specimen 6.0 - 8.3 gm/dL [facility] slightly hemolyzed [facility] R Albumin 4.1Comment: Specimen 3.5 - 5.0 g/dL [facility] slightly hemolyzed [facility] Total Bilirubin 0.3Comment: Specimen 0.2 - 1.2 mg/dL [facility] slightly hemolyzed [facility] R Bilirubin, Direct 0.2Comment: Specimen 0.1 - 0.5 mg/dL [facility] slightly hemolyzed [facility] R Alkaline Phosphatase 122 40 - 150 U/L [facility] AST 27Comment: Specimen 5 - 34 U/L [facility] slightly hemolyzed MEDICAL CENTE R ALT 16Comment: Specimen 6 - 55 U/L [facility] slightly hemolyzed [facility]ICAL [facility]ENT[facility] R Specimen Blood Narrative Performed At Real Estate Economist ID - LATA W [facility] Performing Organization Address [facility] Phone Number [address] [address] CENTER Basic Metabolic Panel (03/27/2020 5:02 AM CDT)Only the most recent of3 results within the time period is included. Sodium 135 (L) 136 - 145 meq/L [facility] Potassium 3.6Comment: Specimen slightly 3.5 - 5.1 meq/L [facility] hemolyzed [facility] Chloride 100 98 - 107 meq/L [facility] CO2 22 22 - 29 meq/L [facility] BUN 11 7 - 21 mg/dL [facility] Creatinine 0.81Comment: Specimen 0.57 - 1.25 mg/dL [facility] slightly hemolyzed [facility] Glucose 160 (H) 70 - 105 mg/dL [facility] Calcium 9.3 8.4 - 10.2 mg/dL [facility] EGFR 68Comment: ESTIMATED GFR IS mL/min/1.73 sq m [facility] NOT ACCURATE CREATININE [facility] CLEARANCE IN PREDICTING GLOMERULAR FILTRATION RATE. ESTIMATED GFR IS NOT APPLICABLE FOR DIALYSIS PATIENTS. Specimen Blood Narrative Performed At Real Estate Economist ID - LATA Corinne [facility] Performing Organization Address City/State/Zipcode Phone Number [facility] [address] [place] [address] brain without IV contrast (03/26/2020 6:04 PM CDT) Specimen Narrative Performed At FINAL REPORT [place] CT, BRAIN, WITHOUT CONTRAST INDICATION: fall, head trauma TECHNIQUE: Noncontrast axial imaging was obtained from the vertex to the skull base. Axial images were recons tructed using a bone algorithm. DOSE REDUCTION: Dose modulation, iterati ve reconstruction, and/or weight-based adjustment of the mA/kV was utilized to reduce the radiation dose to as low as reasonably a chievable. COMPARISON: None. FINDINGS: Intracranial: Exam degraded by motion. T here is streak artifact adjacent to the right frontal calvarium. No convincing intracranial hemorrhage or abnormal extra-axial colle ction. No evidence of acute territorial infarct. No mass effect. No hydrocephalus. 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 Generalized cerebral atrophy with ex vac uo dilatation of the ventricular system proportionate to sulc i. Scattered foci of hypoattenuation within the periventricul ar and subcortical white matter are a nonspecific finding commonl y attributed to chronic small vessel ischemic disease. Osseous structures: No fracture. No susp icious lesion. Right-sided ryne holes. Paranasal sinuses and mastoid air cells: No evidence of sinusitis. Mastoids are clear. Orbital contents: Globes are intact. IMPRESSION: Motion degraded exam. No convincing intr acranial hemorrhage. If there is persistent clinical concern for intracranial pathology, MR examination is recommended for furthe r characterization. Signed: Wyatt Burch MD Report Verified Date/Time:03/26/2020 18:11:57 Procedure Note Interface, External Ris In - 03/26/2020 6:14 PM CDT FINAL REPORT CT, BRAIN, WITHOUT CONTRAST INDICATION: fall, head trauma TECHNIQUE: Noncontrast axial imaging was obtained from the vertex to the skull base. Axial images were recons tructed using a bone algorithm. DOSE REDUCTION: Dose modulation, iterati ve reconstruction, and/or weight-based adjustment of the mA/kV was utilized to reduce the radiation dose to as low as reasonably a chievable. COMPARISON: None. FINDINGS: Intracranial: Exam degraded by motion. T here is streak artifact adjacent to the right frontal calvarium. No convincing intracranial hemorrhage or abnormal extra-axial colle ction. No evidence of acute territorial infarct. No mass effect. No hydrocephalus. 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 Generalized cerebral atrophy with ex vac uo dilatation of the ventricular system proportionate to sulc i. Scattered foci of hypoattenuation within the periventricul ar and subcortical white matter are a nonspecific finding commonl y attributed to chronic small vessel ischemic disease. Osseous structures: No fracture. No susp icious lesion. Right-sided ryne holes. Paranasal sinuses and mastoid air cells: No evidence of sinusitis. Mastoids are clear. Orbital contents: Globes are intact. IMPRESSION: Motion degraded exam. No convincing intr acranial hemorrhage. If there is persistent clinical concern for intracranial pathology, MR examination is recommended for furthe r characterization. Signed: Wyatt Burch MD Report Verified Date/Time: 03/26/2020 1 8:11:57 Performing Organization Address City/[facility] Phone Number GE RIS TSH/Free T4 If Indicated (03/25/2020 9:44 AM CDT) TSH 0.622 0.350 - 4.940 uIU/mL [facility] Specimen Blood Narrative Performed At Real Estate Economist ID - PIAYA L [facility] Performing Organization Address [facility] Phone Number [address] [address] CENTER Troponin I (03/25/2020 9:44 AM CDT) Troponin I 0.02 0.00 - 0.03 ng/mL [facility] Specimen Blood Narrative Performed At Troponin I (TnI) levels must be interpreted [facility] in the context of the presenting symptoms and the clinical findings. Elevated TnI levels indicate myocardial damage, but are not specific for ischemic heart disease. Elevated TnI levels are seen in patients with other cardiac conditions (including myocarditis and congestive heart failure), and slight TnI elevations occur in patients with other conditions, including sepsis, renal failure, acidosis, acute neurological disease, and persistent tachyarrhythmia. Real Estate Economist ID - PIAYA L Performing Organization Address [facility] Phone Number [address] [address] CENTER Phosphorus (03/25/2020 9:44 AM CDT) Phosphorus 3.2 2.3 - 4.7 mg/dL [facility] Specimen Blood Narrative Performed At Real Estate Economist ID - PIAYA L [facility] Performing Organization Address [facility]/Zipcode Phone Number [address] [address] CENTER Hemoglobin A1c (03/25/2020 9:44 AM CDT) Hemoglobin A1C 6.9 (H) 4.3 - 6.1 % [facility] Specimen Blood Performing Organization Address City/[facility]/Zipcode Phone Number [address] [address] [place] Clostridium difficile [facility] Toxin (03/25/2020 5:47 AM CDT) C. Difficle Toxin Negative Negative [facility] C. Difficile [facility] Antigen NegativeComment: No Negative [facility] indication of Clostridium [facility] difficile infection and no colonization. Discontinue enteric isolation and therapy. Specimen Stool Narrative Performed At Testing performed by [employer] [facility] Assay.For GDH, published sensitivity of the assay is 98.7% compared to cytotoxicity testing.For Toxin AB, published sensitivity is 87.8% and specificity 99.4% compared to cytotoxicity testing. Verification of kit performance was done by the [facility] Microbiology Lab prior to clinical use. Performing Organization Address [facility]/Zipcode Phone Number [address] [address] [place] STOOL PATH CHARGE (03/25/2020 5:46 AM CDT) Pathogen exam charged Done [facility] Specimen Stool Performing Organization Address City/[facility]/Zipcode Phone Number [address] [address] [place] Shiga Toxin Screen (03/25/2020 5:46 AM CDT) Shiga toxin 1 Not detected Not detected [facility] Shiga toxin 2 Not detected Not detected [facility] Specimen Stool Performing Organization Address [facility]/Zipcode Phone Number [address] [address] [place] Stool culture + Shiga toxin (03/25/2020 5:46 AM CDT) Result No Salmonella, Shigella or [facility] Campylobacter isolated [facility] Specimen Stool Performing Organization Address City/State/Zipcode Phone Number [facility] [address] [place] [address] [place] Urinalysis Microscopic Only (03/25/2020 5:45 AM CDT) RBC, UA 3 /HPF [facility] WBC, UA 11 /HPF [facility] Bacteria, UA Rare [facility] Squam Epithel, UA 1 /HPF [facility] Specimen Urine Narrative Performed At Real Estate Economist ID - tech [facility] Performing Organization Address City/State/Zipcode Phone Number [address] [address] [place] Urinalysis with Microscopic If Indicated (03/25/2020 5:45 AM CDT) Color, UA Yellow [facility] Clarity, UA Clear [facility] Specific [place], UA 1.033 1.001 - 1.035 [facility] pH, UA 5.5 5.0 - 8.0 [facility] Protein, UA 10 mg/dL (A) Negative [facility] Glucose, UA Negative Negative [facility] Ketones, UA Negative Negative [facility] Bilirubin, UA Negative Negative [facility] Blood, UA Negative Negative [facility] Nitrite, UA Negative Negative [facility] Leukocytes, UA Large (A) Negative [facility] Urobilinogen, UA 0.2 0.2 - 1.0 mg/dL [facility] Specimen Source [facility] Specimen Urine Narrative Performed At Real Estate Economist ID - [auto] [facility] Real Estate Economist ID - tech Performing Organization Address City/State/Zipcode Phone Number [facility] [address] [place] [address] CENTER XR chest 1 view portable / bedside (03/25/2020 4:22 AM CDT) Specimen Narrative Performed At FINAL REPORT [employer] CLINICAL HISTORY: chest pain TECHNIQUE: 1 view of the chest. COMPARISON: None IMPRESSION: There are linear bandlike opacities in t he bilateral mid and lower lungs. There are no significant effusion s. The cardiomediastinal silhouette is magnified by technique. Signed: Keturah Mensah MD Report Verified Date/Time:03/25/2020 07:49:59 Reading Location: [facility] Reading Room Procedure Note Interface, External Ris In - 03/25/2020 7:52 AM CDT FINAL REPORT CLINICAL HISTORY: chest pain TECHNIQUE: 1 view of the chest. COMPARISON: None IMPRESSION: There are linear bandlike opacities in t he bilateral mid and lower lungs. There are no significant effusion s. The cardiomediastinal silhouette is magnified by technique. Signed: Keturah Mensah MD Report Verified Date/Time: 03/25/2020 0 7:49:59 Reading Location: [facility] Reading Room Performing Organization Address City/State/Zipcode Phone Number [facility] SARS-CoV2/RT-PCR (Asymptomatic ONLY) (03/25/2020 2:42 AM CDT) SARS-COV2/RT-PCR Negative Not Detected, Negative [facility] SARS-COV-2 PERFORMING LAB [facility] Specimen Other Narrative Performed At Negative result for this test determines that [facility] SARS-CoV-2 RNA was not present in the specimen above the Limit of Detection (LOD).However, Negative results do not preclude SARS-CoV-2 infection and should not be used as the sole basis for treatment or patient management decisions. Negative results must be combined with clinical observations, patient history, and epidemiological information. A false negative result may occur if a specimen is improperly collected, transported or handled.A false negative result should be considered if patient's recent exposures or clinical presentation indicate that COVID-19 (SARS-CoV-2) is likely and diagnostic tests for other causes of illness are negative.Re-testing should be considered in cases of suspected false negatives. The limit of detection for this assay is 800 copies/mL. This SARS CoV-2 test is a real-time RT-PCR test intended for the qualitative detection of nucleic acid from SARS-CoV-2 in a nasopharyngeal swab specimen collected from individuals suspected of COVID-19 by their healthcare provider. This test has not been Food and Drug Administration (FDA) cleared or approved.This is a modified version of an approved Emergency Use Authorization (EUA) and is in the process of review by the FDA. Once authorized by the FDA, the issued EUA will be effective until the declaration that circumstances exist justifying the authorization of the emergency use of in vitro diagnostic tests for detection and/or diagnosis of COVID-19 is terminated under Section 564(b)(2) of the Act or the EUA is revoked under Section 564(g) of the Act. Fact Sheet for Healthcare Providers: https://www.[employer]y/sites/default/files/pro duct/documents/Fact_Sheet_HC_Providers_Lyra_SA RS-CoV-2.pdf Fact Sheet for Healthcare Patients: https://www.[employer]/sites/default/files/pro duct/documents/Fact_Sheet_Patients_Lyra_SARS-C oV-2.pdf Performing Laboratory: [address] [place] [address] Performing Organization Address City/State/Zipcode Phone Number [address] [address] CENTER after 04/06/2019 Insurance Payer Benefit Plan / Group Subscriber ID Type Phone A ddress MEDICARE MEDICARE A B xxxxxxxxxxx Medicare [facility] AARP/[place] xxxxxxxxxxx Medigap SUPPLEMENT/[facility] CDC REVIEW CDC REVIEW xxxxxxxx [place] [address] Advance Directives For more information, please contact:[address] [phone] Code Status Date Activated Date Inactivated Comments Full Code 03/25/2020 1:11 AM 03/29/2020 5:22 PM This code status was determined by: Patient
--- OUTSIDE RECORDS SUMMARY | 2020-04-06 21:34 | XMS REPORT | Continuity of Care Document ---
:1935 Author Organization [facility] t Address [facility]3 Austyn Samano [address] [place] [id number] Care Team Providers Name Role Phone Pcp Primary Care Physician Unavailable Dudley GABRIEL Attending Clinician Donovan Mcintyre MD Attending Clinician Alberto GABRIEL Attending Clinician Donovan MCINTYRE Attending Clinician Unavailable ALBERTO Admitting Clinician Unavailable Payers Payer Name Policy Policy Number Effective Expiration Source Type Date Date MEDICAREMEDICARE A xxxxxxxxxxx [facility] MCR xxxxxxxxxxx [facility] SUPPLEMENT/INDIVIDUALAARP/UNITE [facility] - D HEALTHCARExxxxxxxxxxx[facility] REVIEWCDC REVIEWxxxxxxxxPO xxxxxxxx [place] [address] [facility] Problems Condition Condition Condition Status Onset Resolution Last Treating Co mments Source Name Details Category Date Date Treatment Clinician Date Acute Acute Disease Active [address] [facility] encephalop encephalop 7-16 Corina kes - athy athy 00:00: Medical 00 [place] Vasovagal Vasovagal Disease Active 2020-[address] [facility] [address] syncope syncope 7-15 [facility] - 00:[facility]: Medical 00 [place] Colitis Colitis Disease Active 2020-[address] [facility] [address] 7-15 [facility] - 00:[facility]: Medical 00 [place] Syncope Syncope Disease Active 2020-[address] [facility] 7-15 [facility] - 00:00: Medical 00 [place] Allergies, Adverse Reactions, Alerts Allergy Allergy Status Severity Reaction(s) Onset Inactive Treating Comm ents Source Name Type Date Date Clinician Codeine Propensi Active 2019-[address] [facility] [address] ty to 7-15 [facility] - adverse 00:00: Medical reaction 00 Center s Meperidi Propensi Active [facility] ty to 7-15 [facility] - adverse 00:00: Medical reaction 00 Center s Morphine Propensi Active 2019- [facility] to 7-15 [facility] - adverse 00:00: Medical reaction 00 Center s Family History Family Member Diagnosis Comments Start Date Stop Date Source Natural father High blood pressure C HI [facility] Social History Social Habit Start Date Stop Date Quantity Comments Source History SDOH Alcohol [facility] - Std Drinks [facility] History SDOH Alcohol [facility] - Binge [facility] Sex Assigned At [facility] History SDOH Alcohol 2020-03-26 2020-03-[address] [facility] - Frequency 00:00:00 00:00:00 [facility] Center Smoking Status Start Date Stop Date Source Never smoker [facility] Ordered Filled Start Stop Current Ordering Indication Dosage Frequency Signature Comments Components Source Medication Medication Date Date Medication? Clinician (SIG) Name Name insulin Yes 15U QD Inject 15 [facility] glargine 7-19 Units [facility] - (LANTUS 00:00: subcutaneo Medi joyce SOLOSTAR 00 ly Center U-100 nightly. INSULIN) 100 unit/mL (3 mL) InPn memantine 2020- Yes 5mg Q.5D Take 1 [facility] (NAMENDA) 5 03-29 tablet (5 Corina kes - MG tablet 00:00: 23:59 mg total) Me dical 00 :00 by mouth 2 Center (two) times daily. gabapentin 2019- Yes 300mg QD Take [address] (NEURONTIN) 03-29 capsule Luke s - 300 MG 00:00: 23:59 (300 mg Medical capsule 00 :00 total) by Center mouth nightly for 30 days. amitriptyli 2020- Yes 25mg QD Take [address] ne (ELAVIL) 03-29-18 tablet (25 L ukes - 25 MG 00:00: 23:59 mg total) Medica l tablet 00 :00 by mouth Center nightly for 30 days. hydrALAZINE 2019- Yes 25mg Take [address] [facility] [address] (APRESOLINE 03-29-18 tablet (25 L ukes - ) 25 MG 00:00: 23:59 mg total) Medi joyce tablet 00 :00 by mouth Center every 8 (eight) hours for 30 days. amLODIPine 2019-0 2020- Yes 10mg QD Take [address] [facility] [address] (NORVASC) 7-19 08-18 tablet (10 Haley es - 10 MG 00:00: 23:59 mg total) Medica l tablet 00 :00 by mouth Center daily for 30 days. BYSTOLIC 10 2019-0 Yes 10mg QD Take [address] [facility] mg tablet 7-09 by mouth [facility] - 00:00: daily. Medical [address] [place] [address] metFORMIN 2019-0 2020- No 500mg Q.5D Take [address] (GLUCOPHAGE 6-25 07-19 mg by [facility] - ) 500 MG 00:00: 00:00 mouth 2 Medic al tablet 00 :00 (two) Center times daily. cloNIDine 2019-2019- No .1{tbl} Take 0.[address] HCL 6-18 07-19 tablets by [facility] - (CATAPRES) 00:00: 00:00 mouth 3 Med ical 0.1 MG 00 :00 (three) Center tablet times daily as needed for High Blood Pressure. clopidogreL 2019- 2020- No 75mg QD Take [address] [facility] (PLAVIX) 75 6-03 07-19 by mouth Haley es - mg tablet 00:00: 00:00 daily. Medic al 00 :00 [place] simvastatin 2019-0 Yes 20mg QD Take [address] (ZOCOR) 20 5-13 by mouth [facility] - MG tablet 00:00: nightly. Medi joyce [address] [place] [address] tamsulosin 2019-0 Yes .4mg Take 0.[address] [facility] (FLOMAX) 5-13 mg by [facility] - 0.4 mg Cap 00:00: mouth Medica l 24 hr 00 Daily Center capsule (1800). omeprazole 2019-0 Yes 20mg QD Take [address] (PRILOSEC) 5-04 by mouth [facility] - 20 MG 00:00: daily. Medical capsule [address] [place] [address] fLUoxetine Yes 20mg QD Take [address] (PROZAC) 20 8-23 by mouth Luke s - MG capsule 00:00: daily. Medic al 00 [place] melatonin 3 2018-0 Yes 3mg QD Take [address] mg Tab 8-23 by mouth [facility] - tablet 00:00: nightly. Medical [address] [place] [address] gabapentin 2020- No 300{tbl Q.[id number] Take [address] enacarbil 05-03 } [id number] tablets by [facility] - 300 mg TbER 00:00: 00:00 3D mouth 3 Me dical 00 :00 (three) Center times daily. amitriptyli 2020- No 100{tbl QD Take [address] ne (ELAVIL) 05-0315 } tablets by L ukes - 100 MG 00:00: 00:00 mouth Medical tablet 00 :00 nightly. [place] lisinopriL 2014-09 Yes 40mg Take [address] (PRINIVIL,Z 2-21 by mouth Luke s - ESTRIL) 40 00:00: Daily Medica l MG tablet 00 (1800). [place] Vital Signs Vital Name Observation Time Observation Value Comments Source Systolic blood 2020-03-29 11:13:00 152 mm[Hg] [facility] Diastolic blood 2020-03-29 11:13:00 98 mm[Hg] [facility] S t [facility] Heart rate 2020-03-29 11:13:00 94 /min [facility] Body temperature 2020-03-29 11:13:00 36.28 Sindhu [facility] Respiratory rate 2020-03-29 11:13:00 22 /min [facility] Oxygen saturation in 2020-03-29 11:13:00 95 /min [facility] Arterial blood by Medical Ce nter Pulse oximetry Body weight Measured 2020-03-29 07:13:00 76.658 kg [facility] Procedures Procedure Date / Time Performed Performing Clinician Bertrand e RHYTHM STRIP - SCAN 2020-04-02 16:10:13 Provider, Default [facility] RHYTHM STRIP - SCAN 2020-04-01 12:01:54 Provider, Default [facility] POCT-GLUCOSE METER 2020-03-29 11:19:00 Patricio [facility] POCT-GLUCOSE METER 2020-03-29 07:25:00 Patricio [facility] CBC W/PLT COUNT & AUTO 2020-03-29 05:51:00 [facility] PO[facility]-GLUCOSE METER 2020-03-28 22:02:00 [facility]SE [facility]ER 2020-03-28 16:32:00 [facility] POCT-GLUCOSE METER 2020-03-28 12:00:00 Alberto [facility] POCT-GLUCOSE METER 2020-03-28 08:06:00 Alberto [facility] CBC W/PLT COUNT & AUTO 2020-03-28 03:47:00 [facility] W/ DOPPLER 2020-03-27 22:17:53 Janneth Mancia [facility] (CW/PW/COLOR) [facility] POCT-GLUCOSE METER 2020-03-27 16:00:00 [facility]AD 2020-03-27 14:30:01 Unknown, Hl7 [facility] POCT-GLUCOSE METER 2020-03-27 11:47:00 Alberto, [facility] POCT-GLUCOSE METER 2020-03-27 07:34:00 Alberto, [facility] CBC W/PLT COUNT & AUTO 2020-03-27 06:32:00 [facility] BASIC METABOLIC PANEL 2020-03-27 05:02:00 [facility] ([address] [place] [address] HEPATIC FUNCTION PANEL 2020-03-27 05:02:00 Alberto [facility] MAGNESIUM 2020-03-27 05:02:00 Alberto [facility] POCT-GLUCOSE METER 2020-03-26 21:36:00 Alberto [facility] CT BRAIN WITHOUT IV 2020-03-26 18:04:00 [facility] POCT-GLUCOSE METER 2020-03-26 17:18:00 [facility] PO[facility]SE METER 2020-03-26 11:42:00 Alberto [facility] POCT-GLUCOSE METER 2020-03-26 07:00:00 Alberto [facility] BASIC METABOLIC PANEL 2020-03-26 04:45:[address] HEPATIC FUNCTION PANEL 2020-03-26 04:45:00 Alberto [facility] MAGNESIUM 2020-03-26 04:45:00 Alberto [facility] CBC W/PLT COUNT & AUTO 2020-03-26 04:45:00 Alberto, [facility] POCT-GLUCOSE METER 2020-03-25 21:01:00 Alberto [facility] POCT-GLUCOSE METER 2020-03-25 17:31:00 Alberto [facility] POCT-GLUCOSE METER 2020-03-25 11:09:00 Alberto, [facility] TROPONIN I 2020-03-25 09:44:00 Janneth Mancia [facility] BASIC METABOLIC PANEL 2020-03-25 09:44:[address] HEPATIC FUNCTION PANEL 2020-03-25 09:44:00 Alberto [facility] MAGNESIUM 2020-03-25 09:44:00 Alberto [facility] PHOSPHORUS 2020-03-25 09:44:00 Alberto [facility] TSH/FREE T4 IF INDICATED 2020-03-25 09:44:[address] [facility] HEMOGLOBIN A1C 2020-03-25 09:44:00 Janneth Mancia [facility] POCT-GLUCOSE METER 2020-03-25 08:59:00 Patricio Edwards [facility] C. DIFFICILE GDH TOXIN 2020-03-25 05:47:00 Janneth Mancia [facility] STOOL CULTURE + SHIGA 2020-03-25 05:46:00 [facility] SHIGA TOXIN SCREEN 2020-03-25 05:46:[address] [facility] L [facility] STOOL PATH CHARGE 2020-03-25 05:46:00 Janneth Mancia [facility] URINALYSIS WITH 2020-03-25 05:45:00 Janneth Mancia [facility] s MICROSCOPIC IF INDICATED [facility] URINALYSIS MICROSCOPIC 2020-03-25 05:45:00 Janneth Mancia [facility] POCT-GLUCOSE METER 2020-03-25 04:57:00 Derik Mcintyre [facility] XR CHEST 1 VIEW 2020-03-25 04:22:00 Janneth Mancia [facility] s - PORTABLE/BEDSIDE [facility] SARS-COV2/RT-PCR ([facility] & 2020-03-25 02:42:00 Janneth Mancia I [facility] - REF LABS) [facility] Plan of Care Planned Activity Planned Date Details Comments Source Future Scheduled 2020-09-[address] Corina kes - Test 00:00:00 [facility] (procedure) [code = 67375958] Future Scheduled 2020-05-12 INFLUENZA VACCINE (#1) [facility] - Test 00:00:00 [code = INFLUENZA Medical Ce nter VACCINE (#1)] Future Scheduled 2002 PNEUMOCOCCAL [address] - Test 00:00:00 LOW/MEDIUM RISK (1 of Medica Center 2 - PCV13) [code = PNEUMOCOCCAL 65+ LOW/MEDIUM RISK (1 of 2 - PCV13)] Future Scheduled 1999-11-[address] L ukes - Test 00:00:00 WELLNESS (YEAR 2 or Medical Center FIRST YEAR if no IPPE) [code = MEDICARE ANNUAL WELLNESS (YEAR 2 or FIRST YEAR if no IPPE)] Future Scheduled 1947 DIABETIC EYE EXAM [facility] - Test 00:00:00 [code = DIABETIC EYE Medical Center EXAM] Future Scheduled [address] Haley es - Test 00:00:00 examination Medical Center (regime/therapy) [code = 657646217] Future Scheduled 1947 Urine screening for [facility] - Test 00:00:00 protein (procedure) Medical Center [code = 369148453] Results Test Description Test Time Test Comments Results Result [facility] e Comments ECG 12 lead 2020-03-11 Interface, External Ris [facility] 9 In - 03/29/2020 5:30 [place] es - 17:30:03 PM CDTVentricular Rate Me dical 89 BPMAtrial Rate 89 Cent er BPMP-R Interval 212 msQRS Duration 140 msQ-T Interval 442 msQTC Calculation(Bazett) 537 msP [place] 73 degreesR [place] 23 degreesT [place] 17 degreesSinus rhythm with 1st degree A-V blockRight bundle branch blockProlonged QTAbnormal ECGNo previous ECGs availableConfirmed by MD AL, SIN ([id number]) on 03/29/2020 5:30:01 PM POC-Glucose meter 2020-03-29 11:32:00 Test Item Value Reference Range Interpretation Comme nts POC-Glucose Meter (test code = 235 mg/dL 70-110 H : TESTED AT [facility] [address] [facility] 1538) [facility], 770 30: Job Captain/Techni chika ID = [id number] for QUEEN NATARAJAN Lab Interpretation (test code = Abnormal 48032-1) [facility] [id number] 11:32:00 Test Item Value Reference Range Interpretation Comments POC-GLUCOSE METER 235 mg/dL 70-110 H : TESTED A T [facility] [address] ([employer]) (test code = DINA Ortega [facility], 1538) [address]: Job Captain/Techni chika ID = [id number] for QUEEN LASSITER POCT-GLUCOSE [id number] 07:37:00 Test Item Value Reference Range Interpretation Comments POC-GLUCOSE METER 190 mg/dL 70-110 H : TESTED A T [facility] [address] ([employer]) (test code = [facility], 1538) [address]: Job Captain/Techni chika ID = [id number] for QUEEN LASSITER CBC with platelet count + automated [id number] 06:10:00 Test Item Value Reference Range Interpretation Comments WBC (test code = 6690-2) 6.6 3.5- 10.5 K/L RBC (test code = 789-8) 4.46 3.93- 5.22 M/L MCHC (test code = 786-4) 32.0 32.2- 35.5 GM/DL L Hematocrit (test code = 4544-3) 37.8 % 34.1-44.9 MCV (test code = 787-2) 84.8 fL 79.4-94.8 MCH (test code = 785-6) 27.1 pg 25.6-32.2 RDW (test code = 788-0) 13.5 % 11.7-14.4 Platelets (test code = 777-3) 291 150- 450 K/CU MM MPV (test code = 46375-4) 9.3 fL 9.4-12.3 L nRBC (test code = 413) 0 0- 0 /100 WBC % Neutros (test code = 429) 51 % % Lymphs (test code = 430) 34 % % Monos (test code = 431) 11 % % Eos (test code = 432) 2 % % Baso (test code = 437) 1 % # Neutros (test code = 670) 3.37 1.56- 6.13 K/L # Lymphs (test code = 414) 2.27 1.18- 3.74 K/L # Monos (test code = 415) 0.75 0.24- 0.36 K/L H # Eos (test code = 416) 0.14 0.04- 0.36 K/L # Baso (test code = 417) 0.03 0.01- 0.08 K/L Immature Granulocytes-Relative 1 % 0-1 (test code = 2801) Lab Interpretation (test code = Abnormal 77576-8) [facility] & AUTO [id number] 06:10:00 Test Item Value Reference Range Interpretation Comments WHITE BLOOD CELL COUNT (BEAKER) 6.6 K/ L 3.5-10.5 (test code = 775) RED BLOOD CELL COUNT (BEAKER) 4.46 M/ L 3.93-5.22 (test code = 761) HEMOGLOBIN (BEAKER) (test code = 12.1 GM/DL 11.2-15.7 410) HEMATOCRIT (BEAKER) (test code = 37.8 % 34.1-44.9 411) MEAN CORPUSCULAR VOLUME (BEAKER) 84.8 fL 79.4-94.8 (test code = 753) MEAN CORPUSCULAR HEMOGLOBIN 27.1 pg 25.6-32.2 (BEAKER) (test code = 751) MEAN CORPUSCULAR HEMOGLOBIN CONC 32.0 GM/DL 32.2-35.5 L (BEAKER) (test code = 752) RED CELL DISTRIBUTION WIDTH 13.5 % 11.7-14.4 (BEAKER) (test code = 412) PLATELET COUNT (BEAKER) (test 291 K/CU MM 150-450 code = 756) MEAN PLATELET VOLUME (BEAKER) 9.3 fL 9.4-12.3 L (test code = 754) NUCLEATED RED BLOOD CELLS 0 /100 WBC 0-0 (BEAKER) (test code = 413) NEUTROPHILS RELATIVE PERCENT 51 % (BEAKER) (test code = 429) LYMPHOCYTES RELATIVE PERCENT 34 % (BEAKER) (test code = 430) MONOCYTES RELATIVE PERCENT 11 % (BEAKER) (test code = 431) EOSINOPHILS RELATIVE PERCENT 2 % (BEAKER) (test code = 432) BASOPHILS RELATIVE PERCENT 1 % (BEAKER) (test code = 437) NEUTROPHILS ABSOLUTE COUNT 3.37 K/ L 1.56-6.13 (BEAKER) (test code = 670) LYMPHOCYTES ABSOLUTE COUNT 2.27 K/ L 1.18-3.74 (BEAKER) (test code = 414) MONOCYTES ABSOLUTE COUNT (BEAKER) 0.75 K/ L 0.24-0.36 H (test code = 415) EOSINOPHILS ABSOLUTE COUNT 0.14 K/ L 0.04-0.36 (BEAKER) (test code = 416) BASOPHILS ABSOLUTE COUNT (BEAKER) 0.03 K/ L 0.01-0.08 (test code = 417) IMMATURE GRANULOCYTES-RELATIVE 1 % 0-1 PERCENT (BEAKER) (test code = 2801) POCT-GLUCOSE [id number] 22:16:00 Test Item Value Reference Range Interpretation Comments POC-GLUCOSE METER 275 mg/dL 70-110 H : TESTED A T [facility] 6720 (BEAKER) (test code = [facility], 153) [address]: Job Captain/Techni chika ID = [id number] for YRIS HENAO POCT-GLUCOSE [id number] 16:44:00 Test Item Value Reference Range Interpretation Comments POC-GLUCOSE METER 200 mg/dL 70-110 H : TESTED A T [facility] 6720 (BEAKER) (test code = [facility], 1538) [address]: Job Captain/Techni chika ID = [id number] for QUEEN LASSITER POCT-GLUCOSE [id number] 12:11:00 Test Item Value Reference Range Interpretation Comments POC-GLUCOSE METER 180 mg/dL 70-110 H : TESTED A T [facility] 6720 (BEAKER) (test code = [facility], 153) [address]: Job Captain/Techni chika ID = [id number] for NW SHAYY ALEXANDER 2D Echo W/Doppler(CW/PW/Color)2020-03-28 09:14:47Ejection FractionSLEH ECHO HEARTLAB MKCKESSON CPACSInterface, External Ris In - 03/28/2020 9:15 AM C DTTransthoracic Echocardiography Report (TTE) Demographics Patient Name SWAPNA MCCAIN Date ofStudy 03/27/2020 DARE Gender Female Visit Number [id number] Race Unknown Room Number 935 Number Date of 1935 Referring Janneth Mancia MD Age 84 year(s) Physician Practice Manager Lorenzo Johnson Unit Supervisor Jay Tinsley Interpreting David Austin Physician Procedure Type of Study TTE procedure:2DECHO W DOPPLER(CW/PW/COLOR) (Routine) Indications:Unexplained Pre- syncope/Syncope.Clinical HistoryHGB 12.4HCT 37.5 %CVA, HTN, OS, DEMENTIAHeight: 64 inches Weight: 68.04 kg (150 lbs) BSA: 1.73 m^2 BMI: 25.75kg/m^2HR: 79 bpm BP: 144/81 mmHg Summary The [...] dysfunction (impaired relaxation and low-normal LA pressure). Left Atrium LA size is normal (16-34 ml/m2) . Right Ventricle The right ventricular chambersize and systolic function are within normal limits. Right Atrium RA cavity size is normal . Atrial Septum A patent foramen ovale (PFO) is suspected by color Doppler. Aortic Valve Mild AoV cusp thickening. A trace of aortic regurgitation. Mitral Valve Mild mitral annular calcification. Mild MV leaflet thickening. Tricuspid Valve Unable to estimate peak systolic PA pressure; inadequate TR velocity signal. Pulmonic Valve PV is not well visualized; function appears normal by Doppler visualized. Aorta Aortic root size (SInus of Valsalva diameter) is normal . Pericardium No significant pericardial effusion is visualized. IVC/SVC/PA/PV/Pleural The estimated RA [...] Mitral Valve MV Peak E-Wave: 0.29 m/s MV PeakA-Wave: 1.11 m/s E/A Ratio: 0.26 Peak Gradient: 0.33 mmHg Deceleration Time: 183.5 msec MV Rogelio. Peak: Tissue Doppler E' Septal Velocity: 0.04 m/s E/E': 4.38 E' Lateral Velocity: 0.07 m/s Aortic Valve Peak Velocity: 1.42 m/s Mean Velocity: 1 m/s Peak Gradient: 8.02 mmHg Mean Gradient: 4.56 mmHg AV Area (continuity): 2.63 cm^2 AV VTI: 23.69 cm AV DVI: 0.82 LVOT Peak Velocity: 1.07 m/s Peak Gradient: 4.58 mmHg Mean Velocity: 0.79 m/s Mean Gradient: 2.79 mmHg LVOT Diameter: 2.02 cm LVOT VTI: 19.43 cm LVOT Area: 3.2 cm^2 LVOT SV:62.24 ml LVOT CO: 4.92 l/min LVOT CI: 2.84 l/min/m^2[facility] campusCT-GLU[facility]SE [id number] 08:17:00 Test Item Value Reference Range Interpretation Comments POC-GLUCOSE METER 158 mg/dL 70-110 H : TESTED A T [facility] 6720 (BEAKER) (test code = DINA Ortega [place], 1538) [address]: Job Captain/Techni chika ID = [id number] for SHAYY ALBRIGHT CBC W/PLT COUNT & AUTO [id number] 04:14:00 Test Item Value Reference Range Interpretation Comments WHITE BLOOD CELL COUNT (BEAKER) 7.0 K/ L 3.5-10.5 (test code = 775) RED BLOOD CELL COUNT (BEAKER) 4.43 M/ L 3.93-5.22 (test code = 761) HEMOGLOBIN (BEAKER) (test code = 11.9 GM/DL 11.2-15.7 410) HEMATOCRIT (BEAKER) (test code = 37.3 % 34.1-44.9 411) MEAN CORPUSCULAR VOLUME (BEAKER) 84.2 fL 79.4-94.8 (test code = 753) MEAN CORPUSCULAR HEMOGLOBIN 26.9 pg 25.6-32.2 (BEAKER) (test code = 751) MEAN CORPUSCULAR HEMOGLOBIN CONC 31.9 GM/DL 32.2-35.5 L (BEAKER) (test code = 752) RED CELL DISTRIBUTION WIDTH 13.3 % 11.7-14.4 (BEAKER) (test code = 412) PLATELET COUNT (BEAKER) (test 280 K/CU MM 150-450 code = 756) MEAN PLATELET VOLUME (BEAKER) 9.6 fL 9.4-12.3 (test code = 754) NUCLEATED RED BLOOD CELLS 0 /100 WBC 0-0 (BEAKER) (test code = 413) NEUTROPHILS RELATIVE PERCENT 58 % (BEAKER) (test code = 429) LYMPHOCYTES RELATIVE PERCENT 28 % (BEAKER) (test code = 430) MONOCYTES RELATIVE PERCENT 12 % (BEAKER) (test code = 431) EOSINOPHILS RELATIVE PERCENT 1 % (BEAKER) (test code = 432) BASOPHILS RELATIVE PERCENT 0 % (BEAKER) (test code = 437) NEUTROPHILS ABSOLUTE COUNT 4.09 K/ L 1.56-6.13 (BEAKER) (test code = 670) LYMPHOCYTES ABSOLUTE COUNT 1.95 K/ L 1.18-3.74 (BEAKER) (test code = 414) MONOCYTES ABSOLUTE COUNT (BEAKER) 0.83 K/ L 0.24-0.36 H (test code = 415) EOSINOPHILS ABSOLUTE COUNT 0.09 K/ L 0.04-0.36 (BEAKER) (test code = 416) BASOPHILS ABSOLUTE COUNT (BEAKER) 0.02 K/ L 0.01-0.08 (test code = 417) IMMATURE GRANULOCYTES-RELATIVE 0 % 0-1 PERCENT (BEAKER) (test code = 2801) POCT-GLUCOSE [id number] 16:12:00 Test Item Value Reference Range Interpretation Comments POC-GLUCOSE METER 233 mg/dL 70-110 H : TESTED A T [facility] 6720 (BEAKER) (test code = [facility], 1538) [address]: Job Captain/Techni chika ID = [id number] for SHAYY ALBRIGHT POCT-GLUCOSE [id number] 12:02:00 Test Item Value Reference Range Interpretation Comments POC-GLUCOSE METER 190 mg/dL 70-110 H : TESTED A T [facility] 6720 (BEAKER) (test code = [facility], 1538) [address]: Job Captain/Techni chika ID = [id number] for SHAYY ALBRIGHT Stool culture + Shiga [id number] 09:19:00 Test Item Value Reference Range Interpretation Comments Result (test code = No Salmonella, Shigella or 6463-4) Campylobacter isolated [facility] CULTURE + SHIGA [id number] 09:19:00 Test Item Value Reference Range Interpretation Comments CULTURE (BEAKER) No Salmonella, Shigella (test code = 1095) or Campylobacter isolated POCT-GLUCOSE [id number] 07:46:00 Test Item Value Reference Range Interpretation Comments POC-GLUCOSE METER 174 mg/dL 70-110 H : TESTED A T [facility] 6720 (BEAKER) (test code = [facility], 1538) [address]: Job Captain/Techni chika ID = [id number] for SHAYY ALBRIGHT CBC W/PLT COUNT & AUTO [id number] 06:53:00 Test Item Value Reference Range Interpretation Comments WHITE BLOOD CELL COUNT (BEAKER) 10.9 K/ L 3.5-10.5 H (test code = 775) RED BLOOD CELL COUNT (BEAKER) 4.50 M/ L 3.93-5.22 (test code = 761) HEMOGLOBIN (BEAKER) (test code = 12.4 GM/DL 11.2-15.7 410) HEMATOCRIT (BEAKER) (test code = 37.5 % 34.1-44.9 411) MEAN CORPUSCULAR VOLUME (BEAKER) 83.3 fL 79.4-94.8 (test code = 753) MEAN CORPUSCULAR HEMOGLOBIN 27.6 pg 25.6-32.2 (BEAKER) (test code = 751) MEAN CORPUSCULAR HEMOGLOBIN CONC 33.1 GM/DL 32.2-35.5 (BEAKER) (test code = 752) RED CELL DISTRIBUTION WIDTH 13.5 % 11.7-14.4 (BEAKER) (test code = 412) PLATELET COUNT (BEAKER) (test 292 K/CU MM 150-450 code = 756) MEAN PLATELET VOLUME (BEAKER) 9.6 fL 9.4-12.3 (test code = 754) NUCLEATED RED BLOOD CELLS 0 /100 WBC 0-0 (BEAKER) (test code = 413) NEUTROPHILS RELATIVE PERCENT 70 % (BEAKER) (test code = 429) LYMPHOCYTES RELATIVE PERCENT 20 % (BEAKER) (test code = 430) MONOCYTES RELATIVE PERCENT 9 % (BEAKER) (test code = 431) EOSINOPHILS RELATIVE PERCENT 0 % (BEAKER) (test code = 432) BASOPHILS RELATIVE PERCENT 0 % (BEAKER) (test code = 437) NEUTROPHILS ABSOLUTE COUNT 7.65 K/ L 1.56-6.13 H (BEAKER) (test code = 670) LYMPHOCYTES ABSOLUTE COUNT 2.19 K/ L 1.18-3.74 (BEAKER) (test code = 414) MONOCYTES ABSOLUTE COUNT (BEAKER) 0.94 K/ L 0.24-0.36 H (test code = 415) EOSINOPHILS ABSOLUTE COUNT 0.02 K/ L 0.04-0.36 L (BEAKER) (test code = 416) BASOPHILS ABSOLUTE COUNT (BEAKER) 0.01 K/ L 0.01-0.08 (test code = 417) IMMATURE GRANULOCYTES-RELATIVE 0 % 0-1 PERCENT (BEAKER) (test code = 2801) Basic Metabolic [id number] 06:20:00 Test Item Value Reference Range Interpretation Comments Sodium (test code = 135 meq/L 136-145 L 2951-2) Potassium (test code = 3.6 meq/L 3.5-5.1 Speci men slightly 2823-3) hemolyzed Chloride (test code = 100 meq/L 98-107 2075-0) CO2 (test code = 22 meq/L 22-29 8-9) BUN (test code = 11 mg/dL 7-21 3094-0) Creatinine (test code 0.81 mg/dL 0.57-1.25 Specim en slightly = 2160-0) hemolyzed Glucose (test code = 160 mg/dL 70-105 H 2345-7) Calcium (test code = 9.3 mg/dL 8.4-10.2 16737-7) EGFR (test code = 68 mL/min/1.73 [place] [address]-3) NOT ACCURATE CREATININE CLEARANCE IN PREDICTING GLOMERULAR FILTRATION RATE . ESTIMATED GFR I S NOT APPLICABLE FOR DIALYSIS PATIENTS. WINDY (test code = WINDY) Job Captain ID - LATA W Lab Interpretation Abnormal (test code = 38655-2) [facility] [id number] 06:20:00 Test Item Value Reference Range Interpretation Comments Protein, Total (test 7.3 6.0- 8.3 gm/dL Speci men code = 2885-2) slightly hemolyzed Albumin (test code = 4.1 g/dL 3.5-5 Specime n 51881-6) slightly hemolyzed Total Bilirubin (test 0.3 mg/dL 0.2-1.2 Specim en code = 1975-2) slightly hemolyzed Bilirubin, Direct 0.2 mg/dL 0.1-0.5 Specimen (test code = 1967-7) slightl y hemolyzed Alkaline Phosphatase 122 U/L 40-150 (test code = 6768-6) AST (test code = 27 U/L 5-34 Specimen 1920-8) slightly hemolyzed ALT (test code = 16 U/L 6-55 Specimen 1742-6) slightly hemolyzed WINDY (test code = WINDY) Job Captain ID - LATA W Lab Interpretation Normal (test code = 66551-4) [facility] 06:20:00 Test Item Value Reference Range Interpretation Comments Magnesium (test code = 1.7 mg/dL 1.6-2.6 Speci men 05259-3) slightly hemolyzed WINDY (test code = WINDY) Job Captain ID Suman GUIDO W Lab Interpretation Normal (test code = 00804-1) [facility]00 Test Item Value Reference Range Interpretation Comments MAGNESIUM (BEAKER) 1.7 mg/dL 1.6-2.6 Specimen slightly (test code = 627) hemolyzed Job Captain ID Suman GUIDO WBASIC METABOLIC [id number] 06:20:00 Test Item Value Reference Range Interpretation Comments SODIUM (BEAKER) 135 meq/L 136-145 L (test code = 381) POTASSIUM (BEAKER) 3.6 meq/L 3.5-5.1 Specimen slightly (test code = 379) hemolyzed CHLORIDE (BEAKER) 100 meq/L 98-107 (test code = 382) CO2 (BEAKER) (test 22 meq/L 22-29 code = 355) BLOOD UREA NITROGEN 11 mg/dL 7-21 (BEAKER) (test code = 354) CREATININE (BEAKER) 0.81 mg/dL 0.57-1.25 Specimen slightly (test code = 358) hemolyzed GLUCOSE RANDOM 160 mg/dL 70-105 H (BEAKER) (test code = 652) CALCIUM (BEAKER) 9.3 mg/dL 8.4-10.2 (test code = 697) EGFR (BEAKER) (test 68 mL/min/1.73 ESTIMA ANAMARIA GFR IS code = 1092) sq m NOT ACCURATE CREATININE CLEARANCE IN PREDICTING GLOMERULAR FILTRATION RATE . ESTIMATED GFR I S NOT APPLICABLE FOR DIALYSIS PATIEN TS. Job Captain ID Suman GUIDO WHEPATIC FUNCTION [id number] 06:20:00 Test Item Value Reference Range Interpretation Comments TOTAL PROTEIN (BEAKER) 7.3 gm/dL 6.0-8.3 Speci men slightly (test code = 770) hemolyzed ALBUMIN (BEAKER) (test 4.1 g/dL 3.5-5.0 Speci men slightly code = 1145) hemolyzed BILIRUBIN TOTAL 0.3 mg/dL 0.2-1.2 Specimen sli ghtly (BEAKER) (test code = hemoly zed 377) BILIRUBIN DIRECT 0.2 mg/dL 0.1-0.5 Specimen sl ightly (BEAKER) (test code = hemoly zed 706) ALKALINE PHOSPHATASE 122 U/L 40-150 (BEAKER) (test code = 346) AST (SGOT) (BEAKER) 27 U/L 5-34 Specimen slightly (test code = 353) hemolyzed ALT (SGPT) (BEAKER) 16 U/L 6-55 Specimen slightly (test code = 347) hemolyzed Job Captain ID - LATA WPOCT-GLUCOSE [id number] 21:46:00 Test Item Value Reference Range Interpretation Comments POC-GLUCOSE METER 181 mg/dL 70-110 H : TESTED A T [facility] 6720 (BEAKER) (test code = DINA Ortega [facility], 1538) [address]: Job Captain/Techni chika ID = [id number] for JEREMY GUPTA CT, BRAIN, WITHOUT [id number] 18:11:00FINAL REPORT CT, BRAIN, WITHOUT CONTRAST INDICATION: fall, head trauma TECHNIQUE: Noncontrast axial imaging was obtained from the vertex to the skull base. Axial images were reconstructed using a bone algorithm. DOSE REDUCTION: Dose modulation, iterative reconstruction, and/or weight-based adjustment of the mA/kV was utilized to reduce the radiation dose to as low as reasonably achievable. COMPARISON: None. FINDINGS: Intracranial: Exam degraded by motion. There is streak artifact adjacent to the right frontal calvarium. No convincing intracranial hemorrhage or abnormal extra-axial collection. No evidence of acute territorial infarct. No mass effect. No hydrocephalus. Remoteappearing lacunar infarct in the right lentiform nucleus. Generalized cerebral atrophy with ex vacuodilatation of the ventricular system proportionate to sulci. Scattered foci of hypoattenuation within the periventricular and subcortical white matter are a nonspecific finding commonly attributed to chronic small vessel ischemic disease. Osseous structures: No fracture. No suspicious lesion. Right-sided ryne holes. Paranasal sinuses and mastoid air cells: No evidence of sinusitis. Mastoids are clear. Orbital contents: Globes are intact. IMPRESSION: Motion degraded exam. No convincing intracranial hemorrhage. If there is persistent clinical concern for intracranial pathology, MR examination is recommended for further characterization. Signed: Wyatt Burch MDRalexiaort Verified Date/Time: 03/26/202018:11:57 CT brain without IV [id number] 18:11:00Interface, External Ris In - 03/26/2020 6:[address], BRAIN, WITHOUT CONTRAST INDICATION: fall, head trauma TECHNIQUE: Noncontrast axial imaging was obtained from the vertex to the skull base. Axial images were reconstructed using a bone algorithm. DOSE REDUCTION:Dose modulation, iterative reconstruction, and/or weight-based adjustment of the mA/kV was utilized to reduce the radiation dose to as low as reasonably achievable. COMPARISON: None. FINDINGS: Intracranial: Exam degraded by motion. There is streak artifact adjacent to the right frontal calvarium. No convincing intracranial hemorrhage or abnormal extra-axial collection. No evidence of acute territorial infarct. No mass effect. No hydrocephalus. Remote appearing lacunar infarct in the right lentiformnucleus. Generalized cerebral atrophy with ex vacuo dilatation of the ventricular system proportionate to sulci. Scattered foci of hypoattenuation within the periventricular and subcortical white matter are a nonspecific finding commonly attributed to chronic small vessel ischemic disease. Osseous structures: No fracture. No suspicious lesion. Right-sided ryne holes. Paranasal sinuses and mastoid aircells: No evidence of sinusitis. Mastoids are clear. Orbital contents: Globes are intact. IMPRESSION: Motion degraded exam. No convincing intracranial hemorrhage. If there is persistent clinical concern for intracranial pathology, MR examination is recommended for further characterization. Signed: Wyatt Burch MDReport Verified Date/Time: 03/26/2020 18:11:57 [facility] [id number] 17:31:00 Test Item Value Reference Range Interpretation Comments POC-GLUCOSE METER 209 mg/dL 70-110 H : Notified RN/MD: (CALI) (test code = TESTED AT [facility] 6720 1538) [facility], [address]: Job Captain/Techni chika ID = [id number] for KAMALJIT ZEKEMEERA Shiga Toxin [id number] 15:19:00 Test Item Value Reference Range Interpretation Comments Shiga toxin 1 (test code = Not detected Not detected 52295-5) Shiga toxin 2 (test code = Not detected Not detected 55106-5) Lab Interpretation (test code = Normal 71964-9) [facility] [id number] 15:19:00 Test Item Value Reference Range Interpretation Comments SHIGA TOXIN 1 (BEAKER) (test Not detected Not detected code = 2177) SHIGA TOXIN 2 (BEAKER) (test Not detected Not detected code = 2179) POCT-GLUCOSE [id number] 11:53:00 Test Item Value Reference Range Interpretation Comments POC-GLUCOSE METER 159 mg/dL 70-110 H : TESTED A T [facility] 6720 (BEAKER) (test code = [facility], 1538) [address]: Job Captain/Techni chika ID = [id number] for SANDRA HOLLIS STOOL PATH [id number] 11:36:00 Test Item Value Reference Range Interpretation Comments Pathogen exam charged (test code = Done 2381) [facility] [id number] 11:36:00 Test Item Value Reference Range Interpretation Comments PATHOGEN EXAM CHARGED (BEAKER) (test Done code = 2381) POCT-GLUCOSE [id number] 07:11:00 Test Item Value Reference Range Interpretation Comments POC-GLUCOSE METER 146 mg/dL 70-110 H : TESTED A T [facility] 6720 (BEAKER) (test code = DINA Ortega [facility], 1538) [address]: Job Captain/Techni chika ID = [id number] for MILY GROVE [id number] 06:04:00 Test Item Value Reference Range Interpretation Comments MAGNESIUM (BEAKER) (test code = 1.9 mg/dL 1.6-2.6 627) Job Captain ID - PIAYA LBASIC METABOLIC [id number] 06:04:00 Test Item Value Reference Range Interpretation Comments SODIUM (BEAKER) 136 meq/L 136-145 (test code = 381) POTASSIUM (BEAKER) 3.5 meq/L 3.5-5.1 (test code = 379) CHLORIDE (BEAKER) 101 meq/L 98-107 (test code = 382) CO2 (BEAKER) (test 25 meq/L 22-29 code = 355) BLOOD UREA NITROGEN 7 mg/dL 7-21 (BEAKER) (test code = 354) CREATININE (BEAKER) 0.76 mg/dL 0.57-1.25 (test code = 358) GLUCOSE RANDOM 142 mg/dL 70-105 H (BEAKER) (test code = 652) CALCIUM (BEAKER) 8.6 mg/dL 8.4-10.2 (test code = 697) EGFR (BEAKER) (test 73 mL/min/1.73 ESTIMA ANAMARIA GFR IS code = 1092) sq m NOT ACCURATE CREATININE CLEARANCE IN PREDICTING GLOMERULAR FILTRATION RATE . ESTIMATED GFR I S NOT APPLICABLE FOR DIALYSIS PATIEN TS. Job Captain ID - PIAYA LHEPATIC FUNCTION [id number] 06:04:00 Test Item Value Reference Range Interpretation Comments TOTAL PROTEIN (BEAKER) (test code = 6.7 gm/dL 6.0-8.3 770) ALBUMIN (BEAKER) (test code = 1145) 3.9 g/dL 3.5-5.0 BILIRUBIN TOTAL (BEAKER) (test code 0.3 mg/dL 0.2-1.2 = 377) BILIRUBIN DIRECT (BEAKER) (test 0.2 mg/dL 0.1-0.5 code = 706) ALKALINE PHOSPHATASE (BEAKER) (test 123 U/L 40-150 code = 346) AST (SGOT) (BEAKER) (test code = 28 U/L 5-34 353) ALT (SGPT) (BEAKER) (test code = 15 U/L 6-55 347) Job Captain ID - PIAYA LCBC W/PLT COUNT & AUTO [id number] 05:20:00 Test Item Value Reference Range Interpretation Comments WHITE BLOOD CELL COUNT (BEAKER) 8.9 K/ L 3.5-10.5 (test code = 775) RED BLOOD CELL COUNT (BEAKER) 3.89 M/ L 3.93-5.22 L (test code = 761) HEMOGLOBIN (BEAKER) (test code = 10.6 GM/DL 11.2-15.7 L 410) HEMATOCRIT (BEAKER) (test code = 33.1 % 34.1-44.9 L 411) MEAN CORPUSCULAR VOLUME (BEAKER) 85.1 fL 79.4-94.8 (test code = 753) MEAN CORPUSCULAR HEMOGLOBIN 27.2 pg 25.6-32.2 (BEAKER) (test code = 751) MEAN CORPUSCULAR HEMOGLOBIN CONC 32.0 GM/DL 32.2-35.5 L (BEAKER) (test code = 752) RED CELL DISTRIBUTION WIDTH 13.6 % 11.7-14.4 (BEAKER) (test code = 412) PLATELET COUNT (BEAKER) (test 254 K/CU MM 150-450 code = 756) MEAN PLATELET VOLUME (BEAKER) 9.5 fL 9.4-12.3 (test code = 754) NUCLEATED RED BLOOD CELLS 0 /100 WBC 0-0 (BEAKER) (test code = 413) NEUTROPHILS RELATIVE PERCENT 67 % (BEAKER) (test code = 429) LYMPHOCYTES RELATIVE PERCENT 23 % (BEAKER) (test code = 430) MONOCYTES RELATIVE PERCENT 8 % (BEAKER) (test code = 431) EOSINOPHILS RELATIVE PERCENT 1 % (BEAKER) (test code = 432) BASOPHILS RELATIVE PERCENT 0 % (BEAKER) (test code = 437) NEUTROPHILS ABSOLUTE COUNT 5.93 K/ L 1.56-6.13 (BEAKER) (test code = 670) LYMPHOCYTES ABSOLUTE COUNT 2.08 K/ L 1.18-3.74 (BEAKER) (test code = 414) MONOCYTES ABSOLUTE COUNT (BEAKER) 0.69 K/ L 0.24-0.36 H (test code = 415) EOSINOPHILS ABSOLUTE COUNT 0.12 K/ L 0.04-0.36 (BEAKER) (test code = 416) BASOPHILS ABSOLUTE COUNT (BEAKER) 0.02 K/ L 0.01-0.08 (test code = 417) IMMATURE GRANULOCYTES-RELATIVE 0 % 0-1 PERCENT (BEAKER) (test code = 2801) POCT-GLUCOSE [id number] 21:12:00 Test Item Value Reference Range Interpretation Comments POC-GLUCOSE METER 154 mg/dL 70-110 H : TESTED A T [facility] 6720 (BEAKER) (test code = DINA [place], 1538) [address]: Job Captain/Techni chika ID = [id number] for JEREMY GUPTA POCT-GLUCOSE [id number] 17:43:00 Test Item Value Reference Range Interpretation Comments POC-GLUCOSE METER 152 mg/dL 70-110 H : TESTED A T [facility] 6720 (BEAKER) (test code = DINA [address], 1538) [address]: Job Captain/Techni chika ID = [id number] for PANCHO HASY SARS-CoV2/RT-PCR (Asymptomatic ONLY)2020-03-25 13:40:00 Test Item Value Reference Range Interpretation Comments SARS-COV2/RT-PCR Negative Not Detected, (test code = Negative 08769-2) SARS-COV-2 [facility] PERFORMING LAB (test code = 28739-3) WINDY (test code = Negative result for this WINDY) test determines that SARS-CoV-2 RNA was not present in the specimen above the Limit of Detection (LOD). However, Negative results do not preclude SARS-CoV-2 infection and should not be used as the sole basis for treatment or patient management decisions. Negative results must be combined with clinical observations, patient history, and epidemiological information. A false negative result may occur if a specimen is improperly collected, transported or handled. A false negative result should be considered if patient's recent exposures or clinical presentation indicate that COVID-19 (SARS-CoV-2) is likely and diagnostic tests for other causes of illness are negative. Re-testing should be considered in cases of suspected [...] Food and Drug Administration (FDA) cleared or approved. This is a modified version of an approved [...] of the Act. Fact Sheet for Healthcare Providers:https://www.[employer]/sites/default/f naomy/product/documents/F act_Sheet_HC_Providers_L ofw_UZJF-PaM-7.pdf Fact Sheet for Healthcare Patients:https://www.[employer]/sites/default/fi les/product/documents/Fa ct_Sheet_Patients_Lyra_S ARS-CoV-2.pdf Performing Laboratory:[facility] [place] [address] [facility])2020-03-25 13:40:00 Test Item Value Reference Range Interpretation Comments SARS-COV2/RT-PCR (test code = Negative Not Detected, Negative 4259090) SARS-COV-2 PERFORMING LAB [facility] (test code = 8041796) Negative result for this test determines that SARS-CoV-2 RNA was not present in the specimen above the Limit of Detection (LOD). However, Negative results do not preclude SARS-CoV-2 infection and should not be used as the sole basis for treatment or patient management decisions. Negative results mustbe combined with clinical observations, patient history, and epidemiological information. A false negative result may occur if a specimen is improperly collected, transported or handled. A false negative result should be considered if patient's recent exposures or clinical presentation indicate that COVID-19 (SARS-CoV-2) is likely and diagnostic tests for other causes of illness are negative. Re-testing should be considered in cases of suspected false negatives.The limit of detection for this assay is 800 copies/mL.This SARS CoV-2 test is a real-time RT-PCR test intended for the qualitative detection of nucleic acid from SARS-CoV-2 in a nasopharyngeal swab specimen collected from individuals susp ected of COVID-19 by their healthcare provider.This test has not been Food and Drug Administration (FDA) cleared or approved. This is a modified version of an approved [...] is revoked under Section 564(g) of the Act.Fact Sheet for Healthcare Providers:https://www.[employer]/sites/default/files/product/documents/Fact_Shee e_HX_Wabhxisez_Gfft_PZRW-VbF-0.pdfFact Sheet for Healthcare Patients:https://www.[employer]/sites/default/files/product/ documents/Fnst_Dtvzo_Gahqrldz_Vpwv_QOTO-QpP-0.pdfPerforming Laboratory:[facility], [place] [address]NOZA-IEIYMWL METER 2020-03-25 11:24:00 Test Item Value Reference Range Interpretation Comments POC-GLUCOSE METER 165 mg/dL 70-110 H : TESTED A T [facility] 6720 (BEAKER) (test code = DINA Ortega [facility], 1538) [address]: Job Captain/Techni chika ID = [id number] for SANDRA HOLLIS Hemoglobin [id number] 10:59:00 Test Item Value Reference Range Interpretation Comments Hemoglobin A1C (test code = 4548-4) 6.9 % 4.3-6.1 H Lab Interpretation (test code = Abnormal 42277-4) [facility] If [id number] 10:59:00 Test Item Value Reference Range Interpretation Comments TSH (test code = 0.622 0.350- 4.940 uIU/mL 84251-0) WINDY (test code = WINDY) Job Captain ID - WAGNER L Lab Interpretation (test Normal code = 16597-3) [facility] T4 IF [id number] 10:59:00 Test Item Value Reference Range Interpretation Comments THYROID STIMULATING HORMONE 0.622 uIU/mL 0.350-4.940 (BEAKER) (test code = 772) Job Captain ID - WAGNER LHEMOGLOBIN [id number] 10:59:00 Test Item Value Reference Range Interpretation Comments HEMOGLOBIN A1C (BEAKER) (test code = 6.9 % 4.3-6.1 H 368) Troponin [id number] 10:50:00 Test Item Value Reference Range Interpretation Comments Troponin I (test code = 0.02 ng/mL 0-0.03 61226-1) WINDY (test code = WINDY) Troponin I (TnI) levels must be interpreted in the context of the presenting symptoms and the clinical findings. Elevated TnI levels indicate myocardial damage, but are not specific for ischemic heart disease. Elevated TnI levels are seen in patients with other cardiac conditions (including myocarditis and congestive heart failure), and slight TnI elevations occur in patients with other conditions, including sepsis, renal failure, acidosis, acute neurological disease, and persistent tachyarrhythmia.Opera tor ID - PIAYA L Lab Interpretation (test Normal code = 24046-0) [facility] [id number] 10:50:00 Test Item Value Reference Range Interpretation Comments TROPONIN I (BEAKER) (test code = 0.02 ng/mL 0.00-0.03 397) Troponin I (TnI) levels must be interpreted in the context of the presenting symptoms and the clinical findings. Elevated TnI levels indicate myocardial damage, but are not specific for ischemic heart disease. Elevated TnI levels are seen in patients with other cardiac conditions (including myocarditis and congestive heart failure), and slight TnI elevations occur in patients with other conditions, including sepsis, renal failure, acidosis, acute neurological disease, and persistent tachyarrhythmia.Job Captain ID - PIAYA LBASIC METABOLIC [id number] 10:42:00 Test Item Value Reference Range Interpretation Comments SODIUM (BEAKER) 133 meq/L 136-145 L (test code = 381) POTASSIUM (BEAKER) 3.5 meq/L 3.5-5.1 (test code = 379) CHLORIDE (BEAKER) 99 meq/L 98-107 (test code = 382) CO2 (BEAKER) (test 25 meq/L 22-29 code = 355) BLOOD UREA NITROGEN 14 mg/dL 7-21 (BEAKER) (test code = 354) CREATININE (BEAKER) 0.93 mg/dL 0.57-1.25 (test code = 358) GLUCOSE RANDOM 119 mg/dL 70-105 H (BEAKER) (test code = 652) CALCIUM (BEAKER) 8.4 mg/dL 8.4-10.2 (test code = 697) EGFR (BEAKER) (test 58 mL/min/1.73 ESTIMA ANAMARIA GFR IS code = 1092) sq m NOT ACCURATE CREATININE CLEARANCE IN PREDICTING GLOMERULAR FILTRATION RATE . ESTIMATED GFR I S NOT APPLICABLE FOR DIALYSIS PATIEN TS. Job Captain ID - PIAYA LHEPATIC FUNCTION [id number] 10:42:00 Test Item Value Reference Range Interpretation Comments TOTAL PROTEIN (BEAKER) (test code = 6.5 gm/dL 6.0-8.3 770) ALBUMIN (BEAKER) (test code = 1145) 3.8 g/dL 3.5-5.0 BILIRUBIN TOTAL (BEAKER) (test code 0.2 mg/dL 0.2-1.2 = 377) BILIRUBIN DIRECT (BEAKER) (test 0.2 mg/dL 0.1-0.5 code = 706) ALKALINE PHOSPHATASE (BEAKER) (test 133 U/L 40-150 code = 346) AST (SGOT) (BEAKER) (test code = 16 U/L 5-34 353) ALT (SGPT) (BEAKER) (test code = 10 U/L 6-55 347) Job Captain ID Suman EDWARD [id number] 10:41:00 Test Item Value Reference Range Interpretation Comments Phosphorus (test code = 3.2 mg/dL 2.3-4.7 2777-1) WINDY (test code = WINDY) Job Captain ID Suman EDWARD L Lab Interpretation (test Normal code = 89758-4) [facility]2020-07-15 10:41:00 Test Item Value Reference Range Interpretation Comments PHOSPHORUS (BEAKER) (test code = 3.2 mg/dL 2.3-4.7 604) Job Captain ID - WAGNER [id number] 10:41:00 Test Item Value Reference Range Interpretation Comments MAGNESIUM (BEAKER) (test code = 2.0 mg/dL 1.6-2.6 627) Job Captain ID - WAGNER LPOCT-GLUCOSE [id number] 09:10:00 Test Item Value Reference Range Interpretation Comments POC-GLUCOSE METER 116 mg/dL 70-110 H : TESTED A T [facility] (BEAKER) (test code = DINA [place], 1538) [address]: Job Captain/Techni chika ID = [id number] for LANCE TRACEY RAD, CHEST, 1 VIEW, NON [id number] 07:49:00Reason for exam:->chest painShould this be performed at the bedside?->YesFINAL REPORT CLINICAL HISTORY: chest pain TECHNIQUE: 1 view of the chest. COM PARISON: None IMPRESSION: There are linear bandlike opacities in the bilateral mid and lower lungs. There are no significant effusions. The cardiomediastinal silhouette is magnified by technique. Signed: Keturah Mensah Verified Date/Time: 03/25/2020 07:49:59 Reading Location: [facility] Radiology Reading Room XR chest 1 view portable / [id number] 07:49:00Interface, External Ris In - 03/25/2020 7:52 AM CDTFINAL REPORT CLINICAL HISTORY: chest pain TECHNIQUE: 1 view of the chest. COMPARISON: None IMPRESSION: There are linear bandlike opacities in the bilateral mid and lower lungs. There are no significant effusions. The cardiomediastinal silhouette is magnified by technique. Signed: Keturah Mensah Verified Date/Time: 07:49:59 Reading Location: [facility] Radiology Reading Room [facility]Clostridium difficile GDH [id number] 06:54:00 Test Item Value Reference Range Interpretation Comments C. Difficle Toxin Negative Negative (test code = 3194953229) C. Difficile GDH Negative Negative No indicati on of Antigen (test code = Clostri dium 3787731909) difficile infection and n o colonization. Discontinue enteric isolati on and therapy. WINDY (test code = Testing performed WINDY) by [employer] Rapid Cassette Assay. For GDH, published sensitivity of the assay is 98.7% compared to cytotoxicity testing. For Toxin AB, published sensitivity is 87.8% and specificity 99.4% compared to cytotoxicity testing.Verificati on of kit performance was done by the [facility] Microbiology Lab prior to clinical use. Lab Interpretation Normal (test code = 42060-1) [facility]. DIFFICILE GDH [id number] 06:54:00 Test Item Value Reference Range Interpretation Comments CDT TOXIN (test code Negative Negative = 8025589684) CDT GDH ANTIGEN (test Negative Negative No ind ication of code = 8603121440) Clostridi um difficile infection and n o colonization. Discontinue ent perez isolation and t herapy. Testing performed by [employer] Rapid Cassette Assay. For GDH, published sensitivity of the assay is 98.7% compared to cytotoxicity testing. For Toxin AB, published sensitivity is 87.8% and specificity 99.4% compared to cytotoxicity testing.Verification of kit performance was done by the [facility] Microbiology Lab prior to clinical use.Urinalysis with Microscopic If [id number] 06:35:00 Test Item Value Reference Range Interpretation Comments Color, UA (test code = Yellow 5778-6) Clarity, UA (test code = Clear 5767-9) Specific [place], UA (test 1.033 1.001-1.035 code = 5811-5) pH, UA (test code = 5.5 5.0-8.0 5803-2) Protein, UA (test code = 10 mg/dL Negative A 28183-0) Glucose, UA (test code = Negative Negative 365) Ketones, UA (test code = Negative Negative 2514-8) Bilirubin, UA (test code = Negative Negative 79057-2) Blood, UA (test code = Negative Negative 16520-6) Nitrite, UA (test code = Negative Negative 5802-4) Leukocytes, UA (test code Large Negative A = 5799-2) Urobilinogen, UA (test 0.2 mg/dL 0.2-1 code = 67126-6) Specimen Source (test code = 2795) WINDY (test code = WINDY) Job Captain ID - [auto]Job Captain ID - tech Lab Interpretation (test Abnormal code = 53798-8) [facility]eca[facility]inalysis Microscopic [id number] 06:35:00 Test Item Value Reference Range Interpretation Comments RBC, UA (test code = 3 /HPF 97591-2) WBC, UA (test code = 11 /HPF 5821-4) Bacteria, UA (test code = Rare 30053-6) Squam Epithel, UA (test 1 /HPF code = 57236-3) WINDY (test code = WINDY) Job Captain ID - [facility] MICROSCOPIC IF [id number] 06:35:00 Test Item Value Reference Range Interpretation Comments COLOR (BEAKER) (test code = 470) Yellow CLARITY (BEAKER) (test code = 469) Clear SPECIFIC GRAVITY UA (BEAKER) (test 1.033 1.001-1.035 code = 468) PH UA (BEAKER) (test code = 467) 5.5 5.0-8.0 PROTEIN UA (BEAKER) (test code = 10 mg/dL Negative A 464) GLUCOSE UA (BEAKER) (test code = Negative Negative 365) KETONES UA (BEAKER) (test code = Negative Negative 371) BILIRUBIN UA (BEAKER) (test code = Negative Negative 462) BLOOD UA (BEAKER) (test code = 461) Negative Negative NITRITE UA (BEAKER) (test code = Negative Negative 465) LEUKOCYTE ESTERASE UA (BEAKER) Large Negative A (test code = 466) UROBILINOGEN UA (BEAKER) (test code 0.2 mg/dL 0.2-1.0 = 463) SOURCE(BEAKER) (test code = 2795) Job Captain ID - [auto]Job Captain ID - techURINALYSIS [id number] 06:35:00 Test Item Value Reference Range Interpretation Comments RBC UA (BEAKER) (test code = 519) 3 /HPF WBC UA (BEAKER) (test code = 520) 11 /HPF BACTERIA (BEAKER) (test code = 517) Rare SQUAMOUS EPITHELIAL (BEAKER) (test 1 /HPF code = 516) Job Captain ID - techPOCT-GLUCOSE [id number] 05:08:00 Test Item Value Reference Range Interpretation Comments POC-GLUCOSE METER 128 mg/dL 70-110 H : TESTED A T [facility] 6720 (BEAKER) (test code = [place], 1538) [address]: Job Captain/Techni chika ID = [id number] for As Meena beckett
== END 2020-04-06 15:55 | disposition home or self-care (01) ==
LOC: ER 12:34
DX: R55 Syncope and collapse (principal); I10 Essential (primary) hypertension; E11.9 Type 2 diabetes mellitus without complications; E78.00 Pure hypercholesterolemia, unspecified; F32.9 Major depressive disorder, single episode, unspecified; Z79.4 Long term (current) use of insulin; Z88.5 Allergy status to narcotic agent; Z88.8 Allergy status to other drugs, medicaments and biological substances
CPT/HCPCS: 36415; 51702; 70450; 72125; 80048; 81003; 83735; 84484; 85025; 85610; 85730; 93005; 96360; 96361; 99284

== ENCOUNTER 2021-02-02 11:30 | Inpatient (IN) | payer OTHER, MEDICARE ==
--- OUTSIDE RECORDS SUMMARY | 2021-02-02 11:35 | XMS REPORT | Continuity of Care Document ---
:1935 Author Organization [facility] t Address [address] [place] [address] Care Team Providers Name Role Phone Pcp MD Primary Care Physician Unavailable Dudley GABRIEL Attending Clinician Donovan Mcintyre MD Attending Clinician Alberto GABRIEL Attending Clinician Donovan MCINTYRE Attending Clinician Unavailable ALBERTO Admitting Clinician Unavailable Payers Payer Name Policy Type Policy Effective Date Expiration Date Sour ce Number MEDICAREMEDICARE A [id number] [address] [facility] [id number] 1998-P 00:00:00 - Medical resentMedicare Center [facility] [id number] [facility] SUPPLEMENT/INDIVIDUALA 00:00:00 - [id number] /09/2019-PresentMedigap Problems Condition Condition Condition Status Onset Resolution Last Treating Co mments Source Name Details Category Date Date Treatment Clinician Date Acute Acute Disease Active [facility] encephal[facility] encephalop 7-16 [facility] - athy athy 00:00: Medical 00 Center Vasovagal Vasovagal Disease Active 2020-[address] [facility] [address] syncope syncope 7-15 [facility] - 00[facility] Medical 00 Center Colitis Colitis Disease Active 2020-[address] [facility] 7[facility]15 [facility] - 00:[facility]: Medical 00 Center Syncope Syncope Disease Active 2020-[address] [facility] 7-15 [facility] - 00:00: Medical 00 Center Allergies, Adverse Reactions, Alerts Allergy Allergy Status Severity Reaction(s) Onset Inactive Treating Comm ents Source Name Type Date Date Clinician Brissa Barrow Active 2019- [facility]15 [facility] - adverse 00:00: Medical reaction 00 Center s Meperidi Propensi Active [facility] ne ty to 7-15 [facility] - adverse 00:00: Medical reaction 00 Center s Morphine Propensi Active [facility] to 7-15 [facility] - adverse 00:00: Medical reaction 00 Center s Family History Family Member Diagnosis Comments Start Date Stop Date Source Natural father High blood pressure C HI [facility] Social History Social Habit Start Date Stop Date Quantity Comments Source History SDOH [facility] - Alcohol Std Drinks Medica l Center History SDOH [facility] - Alcohol Binge Medical Nataliia ter Sex Assigned [facility] Tobacco use and 2020-03-26 2020-03-26 Never used [facility] - exposure 00:00:00 00:00:00 [facility] Alcohol intake 2020-03-26 2020-03-26 [address] [facility] - 00:00:00 00:00:00 non-drinker of Medical Ce nter alcohol (finding) History [facility] 2020-03-26 2020-03-[address] [facility] - Alcohol Frequency 00:00:00 00:00:00 [facility] Smoking Status Start Date Stop Date Source [facility] sm[facility] Medications Ordered Filled Start Stop Current Ordering Indication Dosage Frequency Signature Comments Components Source Medication Medication Date Date Medication? Clinician (SIG) Name Name insulin Yes 15U QD Inject 15 [facility] glargine 7-19 Units [facility] - (LANTUS 00:00: subcutaneo Medi joyce SOLOSTAR 00 [facility] Center U-100 nightly. INSULIN) 100 unit/mL (3 mL) InPn memantine 2020- No 5mg Q.5D Take 1 [facility] (NAMENDA) 5 03-29 tablet (5 [facility] kes - MG tablet 00:00: 23:59 mg total) Me dical 00 :00 by mouth 2 Center (two) times daily. gabapentin No 300mg QD Take [address] (NEURONTIN) 03-29 capsule Luke s - 300 MG 00:00: 23:59 (300 mg Medical capsule 00 :00 total) by Center mouth nightly for 30 days. amitriptyli 2019- No 25mg QD Take [address] (ELAVIL) 03-29-18 tablet (25 L ukes - 25 MG 00:00: 23:59 mg total) Medica l tablet 00 :00 by mouth Center nightly for 30 days. hydrALAZINE 2019- 2020- No 25mg Take [address] (APRESOLINE 03-29-18 tablet (25 L ukes - ) 25 MG 00:00: 23:59 mg total) Medi joyce tablet 00 :00 by mouth Center every 8 (eight) hours for 30 days. amLODIPine 2019- 2020- No 10mg QD Take [address] (NORVASC) 03-29-18 tablet (10 [facility]aley es - 10 MG 00:00: 23:59 mg total) Medica l tablet 00 :00 by mouth Center daily for 30 days. BYSTOLIC 10 2019-0 Yes 10mg QD Take [address] mg tablet 7- by mouth [facility]ukes - 00:00: daily. Medical 00 Center metFORMIN 2019-0 2020- No 500mg Q.5D Take [address] (GLUCOPHAGE 6-25 07-19 mg by [facility] - ) 500 MG 00:00: 00:00 mouth 2 Medic al tablet 00 :00 (two) Center times daily. cloNIDine 2019- 2020- No .1{tbl} Take 0.[address] HCL 6-18 -19 tablets by [facility] - (CATAPRES) 00:00: 00:00 mouth 3 Med ical 0.1 MG 00 :00 (three) Center tablet times daily as needed for High Blood Pressure. clopidogreL 2019- 2020- No 75mg QD Take [address] [facility] (PLAVIX) 75 6- 07-19 by mouth [facility]aley es - mg tablet 00:00: 00:00 daily. Medic al 00 :00 Center simvastatin 2019-0 Yes 20mg QD Take [address] [facility] (ZOCOR) 20 5-13 by mouth [facility] - MG tablet 00:00: nightly. Medi joyce 00 Center tamsulosin 2020-0 Yes .4mg Take 0.[address] (FLOMAX) 5-13 mg by [facility] - 0.4 mg Cap 00:00: mouth Medica l 24 hr 00 Daily Center capsule (1800). omeprazole 2019-0 Yes 20mg QD Take [address] (PRILOSEC) 5-04 by mouth [facility] - 20 MG 00:00: daily. Medical capsule 00 [place] fLUoxetine Yes 20mg QD Take [address] (PROZAC) 20 -23 by mouth Luke s - MG capsule 00:00: daily. Medic al 00 [place] melatonin 3 Yes 3mg QD Take [address] mg Tab 05-03 by mouth [facility] - tablet 00:00: nightly. Medical 00 [place] gabapentin 2020- No 300{tbl Q.[id number] Take [address] enacarbil 05-03 } [id number] tablets by [facility] - 300 mg TbER 00:00: 00:00 3D mouth 3 Me dical 00 :00 (three) Center times daily. amitriptyli 2020- No 100{tbl QD Take [address] (ELAVIL) 05-03 } tablets by L ukes - 100 MG 00:00: 00:00 mouth Medical tablet 00 :00 nightly. [place] lisinopriL 2014-09 Yes 40mg Take [address] (PRINIVIL,Z 2-21 by mouth Luke s - ESTRIL) 40 00:00: Daily Medica l MG tablet 00 (1800). [place] Vital Signs Vital Name Observation Time Observation Value Comments Source Diastolic blood 2020-03-29 11:13:00 98 mm[Hg] [facility] Heart rate 2020-03-29 11:13:00 94 /min [facility] Body temperature 2020-03-29 11:13:00 36.28 Sindhu [facility] Respiratory rate 2020-03-29 11:13:00 22 /min [facility] Oxygen saturation in 2020-03-29 11:13:00 95 /min [facility] Arterial blood by Medical Ce nter Pulse oximetry Systolic blood 2020-03-29 11:13:00 152 mm[Hg] [facility] Body weight 2020-03-29 07:13:00 76.658 kg [facility] Procedures Procedure Date / Time Performed Performing Clinician Bertrand metcalf RHYTHM STRIP - SCAN 2020-04-02 16:10:13 Provider, Default [facility] Scanning [facility] RHYTHM STRIP - SCAN 2020-04-01 12:01:54 Provider, Default [facility] POCT-GLUCOSE METER 2020-03-29 11:19:00 Alberto [facility] POCT-GLUCOSE METER 2020-03-29 07:25:00 Alberto [facility] CBC W/PLT COUNT & AUTO 2020-03-29 05:51:00 Alberto [facility] POCT-GLUCOSE METER 2020-03-28 22:02:00 Alberto [facility] POCT-GLUCOSE METER 2020-03-28 16:32:00 Alberto [facility] POCT-GLUCOSE METER 2020-03-28 12:00:00 Alberto [facility] POCT-GLUCOSE METER 2020-03-28 08:06:00 Alberto [facility] CBC W/PLT COUNT & AUTO 2020-03-28 03:47:00 Alberto [facility] 2D ECHO W/ DOPPLER 2020-03-27 22:17:53 Janneth Mancia [facility] (CW/PW/COLOR) [facility] POCT-GLUCOSE METER 2020-03-27 16:00:00 Alberto [facility] ECG 12-LEAD 2020-03-27 14:30:01 Maegan Buckner [facility] POCT-GLUCOSE METER 2020-03-27 11:47:00 Alberto [facility] POCT-GLUCOSE METER 2020-03-27 07:34:00 [facility] CBC W/PLT COUNT & AUTO 2020-03-27 06:32:[facility] 2020-03-27 05:02:[address] HEPATIC FUNCTION PANEL 2020-03-27 05:02:00 Alberto [facility] MAGNESIUM 2020-03-27 05:02:00 Alberto [facility] POCT-GLUCOSE METER 2020-03-26 21:36:00 Alberto [facility] CT BRAIN WITHOUT IV 2020-03-26 18:04:00 [facility]SE MET[facility] 2020-03-26 17:18:00 Alberto [facility] POCT-GLUCOSE METER 2020-03-26 11:42:00 Alberto [facility] POCT-GLUCOSE METER 2020-03-26 07:00:00 Alberto [facility] CBC W/PLT COUNT & AUTO 2020-03-26 04:45:00 Alberto [facility] BASIC METABOLIC PANEL 2020-03-26 04:45:00 [facility] HEPATIC FUNCTION PANEL 2020-03-26 04:45:00 Alberto [facility] MAGNESIUM 2020-03-26 04:45:00 Alberto [facility] POCT-GLUCOSE METER 2020-03-25 21:01:00 Alberto [facility] POCT-GLUCOSE METER 2020-03-25 17:31:00 Alberto [facility] POCT-GLUCOSE METER 2020-03-25 11:09:00 Alberto [facility] MAGNESIUM 2020-03-25 09:44:00 Alberto [facility] PHOSPHORUS 2020-03-25 09:44:00 Alberto [facility] TSH/FREE T4 IF INDICATED 2020-03-25 09:44:00 Janneth Mancia [facility] HEMOGLOBIN A1C 2020-03-25 09:44:00 Janneth Mancia [facility] TROPONIN I 2020-03-25 09:44:00 Janneth Mancia [facility] BASIC METABOLIC PANEL 2020-03-25 09:44:[address] HEPATIC FUNCTION PANEL 2020-03-25 09:44:00 Alberto [facility] POCT-GLUCOSE METER 2020-03-25 08:59:00 Alberto [facility] C. DIFFICILE GDH TOXIN 2020-03-25 05:47:00 Janneth Mancia [facility] STOOL PATH CHARGE 2020-03-25 05:46:[address] [facility] STOOL CULTURE + SHIGA 2020-03-25 05:46:[address] [facility] TOXIN [facility] SHIGA TOXIN SCREEN 2020-03-25 05:46:00 [facility] 2020-03-25 05:45:00 Janneth Mancia [facility] - MICROSCOPIC IF INDICATED [facility] URINALYSIS MICROSCOPIC 2020-03-25 05:45:00 Janneth Mancia [facility] POCT-GLUCOSE METER 2020-03-25 04:57:00 Derik Mcintyre [facility] XR CHEST 1 VIEW 2020-03-25 04:22:00 Janneth Mancia [facility] - PORTABLE/BEDSIDE [facility] SARS-COV2/RT-PCR ([facility] & 2020-03-25 02:42:00 Janneth Mancia I [facility] - REF LABS) [facility] Plan of Care Planned Activity Planned Date Details Comments Source Future Scheduled 2021-05-12 INFLUENZA VACCINE [facility] - Test 00:00:00 (Season Ended) [code = [facility] INFLUENZA VACCINE (Season Ended)] Future Scheduled 2020-09-25 Hemoglobin A1c [facility] - Test 00:00:00 [facility] (procedure) [code = 52597828] Future Scheduled 2020-09-11 [facility]CREENING [facility] 00:00:00 (12+) [code = Medical Center DEPRESSION SCREENING (12+)] Future Scheduled 2002 PNEUMOCOCCAL 65+ YRS [facility] - Test 00:00:00 (1 of 1 - Medical Center [id number] PCV13) [code = PNEUMOCOCCAL 65+ YRS (1 of 1 - [id number]_Ehctphi PCV13)] Future Scheduled 1999-11-[address] [facility] - Test 00:00:00 WELLNESS (YEAR 2 or Medical Center FIRST YEAR if no IPPE) [code = MEDICARE ANNUAL WELLNESS (YEAR 2 or FIRST YEAR if no IPPE)] Future Scheduled 1987 SHINGLES VACCINES ([address] [facility] - Test 00:00:00 of 2) [code = SHINGLES Medic al Center VACCINES (1 of 2)] Future Scheduled 1956 DTAP/TDAP/TD VACCINES [facility] - Test 00:00:00 (1 - Tdap) [code = Medical C enter DTAP/TDAP/TD VACCINES (1 - Tdap)] Future Scheduled 1949 COVID-19 VACCINE (1) [facility] - Test 00:00:00 [code = COVID-[address] VACCINE (1)] Future Scheduled [address] DIABETIC EYE EXAM [facility] - Test 00:00:00 [code = DIABETIC EYE Medical Center EXAM] Future Scheduled [address] [facility] - Test 00:00:00 examination Medical Center (regime/therapy) [code = 082499072] Future Scheduled 1947 Urine screening for [facility] - Test 00:00:00 protein (procedure) Medical Center [code = 909927189] Results Test Description Test Time Test Comments Results Result [facility] e Comments ECG 12 lead 2020-03-11 Interface, External Ris [facility] 9 In - 03/29/2020 5:30 [place]aly[place] es - 17:30:03 PM CDTVentricular Rate Me dical 89 BPMAtrial Rate 89 Cent er BPMP-R Interval 212 msQRS Duration 140 msQ-T Interval 442 msQTC Calculation(Bazett) 537 msP [place] 73 degreesR [place] 23 degreesT [place] 17 degreesSinus rhythm with 1st degree A-V blockRight bundle branch blockProlonged QTAbnormal ECGNo previous ECGs availableConfirmed by MD AL, SIN ([id number]) on 03/29/2020 5:30:01 PM POC-Glucose meter 2020-03-29 11:32:00 Test Item Value Reference Range Interpretation Comme nts POC-Glucose Meter (test code = 235 mg/dL 70-110 H : [facility] [address] [facility], 770 30: Instructor Nurse/Techni chika ID = [id number] for QUEEN NATARAJAN Lab Interpretation (test code = Abnormal 76654-6) [facility] [id number] 11:32:00 Test Item Value Reference Range Interpretation Comments POC-GLUCOSE METER 235 mg/dL 70-110 H : TESTED A T [facility] [address] (BEAKER) (test code = DINA Ortega [facility], 1538) [address]: Instructor Nurse/Techni chika ID = [id number] for QUEEN LASSITER POCT-GLUCOSE [id number] 07:37:00 Test Item Value Reference Range Interpretation Comments POC-GLUCOSE METER 190 mg/dL 70-110 H : TESTED A T [facility] (BEAKER) (test [facility] = [facility], 1538) [address]: Instructor Nurse/Techni chika ID = [id number] for QUEEN LASSITER CBC with platelet count + automated [id number] 06:10:00 Test Item Value Reference Range Interpretation Comments WBC (test code = 6690-2) 6.6 See_Comment [A utomated message] The system [employer] generated this result transmitted ref erence range: 3.5 - 10 .5 K/L. The refe rence range was not u sed to interpret this result as normal/abnor mal. RBC (test code = 789-8) 4.46 See_Comment [Au tomated message] The system [employer] generated this result transmitted ref erence range: 3.93 - 5 .22 M/L. The refe rence range was not u sed to interpret this result as normal/abnor mal. MCHC (test code = 786-4) 32.0 See_Comment L [A utomated message] The system [employer] generated this result transmitted ref erence range: 32.2 - 3 5.5 GM/DL. The refe rence range was not u sed to interpret this result as normal/abnor mal. Hematocrit (test code = 37.8 % 34.1-44.9 4544-3) MCV (test code = 787-2) 84.8 fL 79.4-94.8 MCH (test code = 785-6) 27.1 pg 25.6-32.2 RDW (test code = 788-0) 13.5 % 11.7-14.4 Platelets (test code = 291 See_Comment [Aut omated message] 777-3) The system [employer] generated this result transmitted ref erence range: 150 - 45 0 K/CU MM. The referen ce range was not u sed to interpret this result as normal/abnor mal. MPV (test code = 9.3 fL 9.4-12.3 L 75453-9) nRBC (test code = 413) 0 See_Comment [Aut omated message] The system [employer] generated this result transmitted ref erence range: 0 - 0 /1 00 WBC. The refere nce range was not u sed to interpret this result as normal/abnor mal. % Neutros (test code = 51 % 429) % Lymphs (test code = 34 % 430) % Monos (test code = 11 % 431) % Eos (test code = 432) 2 % % Baso (test code = 437) 1 % # Neutros (test code = 3.37 See_Comment [Aut omated message] 670) The system [employer] generated this result transmitted ref erence range: 1.56 - 6 .13 K/L. The refe rence range was not u sed to interpret this result as normal/abnor mal. # Lymphs (test code = 2.27 See_Comment [Auto mated message] 414) The system [employer] generated this result transmitted ref erence range: 1.18 - 3 .74 K/L. The refe rence range was not u sed to interpret this result as normal/abnor mal. # Monos (test code = 0.75 See_Comment H [Autom ated message] 415) The system [employer] generated this result transmitted ref erence range: 0.24 - 0 .36 K/L. The refe rence range was not u sed to interpret this result as normal/abnor mal. # Eos (test code = 416) 0.14 See_Comment [Au tomated message] The system [employer] generated this result transmitted ref erence range: 0.04 - 0 .36 K/L. The refe rence range was not u sed to interpret this result as normal/abnor mal. # Baso (test code = 417) 0.03 See_Comment [A utomated message] The system [employer] generated this result transmitted ref erence range: 0.01 - 0 .08 K/L. The refe rence range was not u sed to interpret this result as normal/abnor mal. Immature 1 % 0-1 Granulocytes-Relative (test code = 2801) Lab Interpretation (test Abnormal code = 50164-7) [facility] W/PLT COUNT & AUTO [id number] 06:10:00 Test Item Value Reference Range Interpretation [...] PERCENT (BEAKER) (test code = 2801) POCT-GLUCOSE [id number] 22:16:00 Test Item Value Reference Range Interpretation Comments POC-GLUCOSE METER 275 mg/dL 70-110 H : TESTED A T [facility] 6720 (BEAKER) (test code = [facility], 153) [address]: Instructor Nurse/Techni chika ID = [id number] for YRIS HENAO POCT-GLUCOSE [id number] 16:44:00 Test Item Value Reference Range Interpretation Comments POC-GLUCOSE METER 200 mg/dL 70-110 H : TESTED A T [facility] 6720 (BEAKER) (test code = [facility], 1538) 10705: Instructor Nurse/Techni chika ID = [id number] for QUEEN LASSITER POCT-GLUCOSE [id number] 12:11:00 Test Item Value Reference Range Interpretation Comments POC-GLUCOSE METER 180 mg/dL 70-110 H : TESTED A T [facility] 6720 (BEAKER) (test code = [facility], 1538) 20441: Instructor Nurse/Techni chika ID = [id number] for NW AJIAKU, SHAYY 2D Echo W/Doppler(CW/PW/Color)2020-03-28 09:14:47Ejection FractionSLEH ECHO HEARTLAB MKCKESSON CPACSInterface, External Ris In - 03/28/2020 9:15 AM C DTTransthoracic Echocardiography Report (TTE) Demographics Patient Name SWAPNA MCCAIN Date ofStudy 03/27/2020 JAMES Gender Female Visit Number [id number] Race Unknown Room Number 935 Number Date of 1935 Referring Janneth Bean Physician MD Gavino Age 84 year(s) 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 Lorenzo Johnson Staff Research Associate Jay Tinsley Interpreting Physician HARVEY Crawford Procedure Type of Study TTE procedure:2DECHO W [...] CO: 4.92 l/min LVOT CI: 2.84 l/min/m^2[facility] [id number] 08:17:00 Test Item Value Reference Range Interpretation Comments POC-GLUCOSE METER 158 mg/dL 70-110 H : TESTED A T [facility] 6720 ([facility]) (test code = [place], 1538) [address]: Instructor Nurse/Techni chika ID = [id number] for NW SHAYY ALEXANDER CBC W/PLT COUNT & AUTO [id number] 04:14:00 Test Item Value Reference Range Interpretation [...] PERCENT (BEAKER) (test code = 2801) POCT-GLUCOSE [id number] 16:12:00 Test Item Value Reference Range Interpretation Comments POC-GLUCOSE METER 233 mg/dL 70-110 H : TESTED A T [facility] 6720 (BEAKER) (test code = [facility], 153) 26843: Instructor Nurse/Techni chika ID = [id number] for NW AJIAKU, SHAYY POCT-GLUCOSE [id number] 12:02:00 Test Item Value Reference Range Interpretation Comments POC-GLUCOSE METER 190 mg/dL 70-110 H : TESTED A T [facility] 6720 (BEAKER) (test code = [facility], 1538) 81468: Instructor Nurse/Techni chika ID = [id number] for NW AJIAKU, SHAYY Stool culture + Shiga [id number] 09:19:00 Test Item Value Reference Range Interpretation Comments Result (test code = No Salmonella, Shigella or 6463-4) Campylobacter isolated [facility] CULTURE + SHIGA [id number] 09:19:00 Test Item Value Reference Range Interpretation Comments CULTURE (BEAKER) No Salmonella, Shigella (test code = 1095) or Campylobacter isolated POCT-GLUCOSE [id number] 07:46:00 Test Item Value Reference Range Interpretation Comments POC-GLUCOSE METER 174 mg/dL 70-110 H : TESTED A T [facility] 6720 (BEAKER) (test code = [place], 1538) [address]: Instructor Nurse/Techni chika ID = [id number] for NW SHAYY ALEXANDER CBC W/PLT COUNT & AUTO [id number] 06:53:00 Test Item Value Reference Range Interpretation [...] (BEAKER) (test code = 2801) Basic Metabolic [id number] 06:20:00 Test Item Value Reference Range Interpretation Comments Sodium (test code = 135 meq/L 136-145 L 2951-2) Potassium (test code = 3.6 meq/L 3.5-5.1 Speci men slightly 2823-3) hemolyzed Chloride (test code = 100 meq/L 98-107 2075-0) CO2 (test code = 22 meq/L 22-29 2028-9) BUN (test code = 11 mg/dL 7-21 3094-0) Creatinine (test code 0.81 mg/dL 0.57-1.25 Specim en slightly = 2160-0) hemolyzed Glucose (test code = 160 mg/dL 70-105 H 2345-7) Calcium (test code = 9.3 mg/dL 8.4-10.2 26428-9) EGFR (test code = 68 mL/min/1.73 [place] [address]-9) NOT ACCURATE CREATININE CLEARANCE IN PREDICTING GLOMERULAR FILTRATION RATE . ESTIMATED GFR I S NOT APPLICABLE FOR DIALYSIS PATIENTS. WINDY (test code = WINDY) Instructor Nurse ID - LATA Sun Lab Interpretation Abnormal (test code = 34036-0) [facility] [id number] 06:20:00 Test Item Value Reference Range Interpretation Comments Protein, Total (test 7.3 See_Comment Specime n slightly code = 2885-2) hemolyzed [Automated message] The system which generated this result transmit anamaria reference range : 6.0 - 8.3 gm/dL . The reference range was not u sed to interpret th is result as normal/abnormal . Albumin (test code = 4.1 g/dL 3.5-5 Specime n slightly 80537-7) hemolyzed Total Bilirubin (test 0.3 mg/dL 0.2-1.2 Specim en slightly code = 1975-2) hemolyzed Bilirubin, Direct 0.2 mg/dL 0.1-0.5 Specimen s lightly (test code = 1967-7) hemolyz ed Alkaline Phosphatase 122 U/L 40-150 (test code = 6768-6) AST (test code = 27 U/L 5-34 Specimen sl ightly 1920-8) hemolyzed ALT (test code = 16 U/L 6-55 Specimen sl ightly 1742-6) hemolyzed WINDY (test code = WINDY) Instructor Nurse ID - LATA W Lab Interpretation Normal (test code = 35146-1) [facility] 06:20[facility]00 Test Item Value Reference Range Interpretation Comments Magnesium (test code = 1.7 mg/dL 1.6-2.6 Speci men 01217-0) slightly hemolyzed WINDY (test code = WINDY) Instructor Nurse ID - LATA W Lab Interpretation Normal (test code = 79492-2) [facility] 06:[facility]00 Test Item Value Reference Range Interpretation Comments MAGNESIUM (BEAKER) 1.7 mg/dL 1.6-2.6 Specimen slightly (test code = 627) hemolyzed Instructor Nurse ID - LATA WBASIC METABOLIC [id number] 06:20:00 Test Item Value Reference Range Interpretation [...] S NOT APPLICABLE FOR DIALYSIS PATIEN TS. Instructor Nurse ID Suman GUIDO WHEPATIC FUNCTION [id number] 06:20:00 Test Item Value Reference Range Interpretation [...] Specimen slightly (test code = 347) hemolyzed Instructor Nurse ID Suman GUIDO WPOCT-GLUCOSE [id number] 21:46:00 Test Item Value Reference Range Interpretation Comments POC-GLUCOSE METER 181 mg/dL 70-110 H : TESTED A T [facility] 6720 (BEAKER) (test code = [place], 1538) 59260: Instructor Nurse/Techni chika ID = [id number] for JEREMY GUPTA CT, BRAIN, WITHOUT [id number] 18:11:00FINAL REPORT CT, BRAIN, WITHOUT CONTRAST INDICATION: [...] characterization. Signed: Wyatt Burch MDReport Verified Date/Time: 03/26/202018:11:57 CT brain without IV [id number] 18:11:00Interface, External Ris In - 03/26/2020 6:14 [...] recommended for further characterization. Signed: Wyatt Burch Verified Date/Time: 03/26/2020 18:11:57 [facility] [id number] 17:31:00 Test Item Value Reference Range Interpretation Comments POC-GLUCOSE METER 209 mg/dL 70-110 H : Notified RN/MD: (BEAKER) (test code = TESTED AT [facility] 6720 1538) [facility], [address]: Instructor Nurse/Techni chika ID = [id number] for MEERA LEMOS Shiga Toxin [id number] 15:19:00 Test Item Value Reference Range Interpretation Comments Shiga toxin 1 (test code = Not detected Not detected 42708-1) Shiga toxin 2 (test code = Not detected Not detected 93860-4) Lab Interpretation (test code = Normal 35770-7) [facility] [id number] 15:19:00 Test Item Value Reference Range Interpretation Comments SHIGA TOXIN 1 (BEAKER) (test Not detected Not detected code = 2177) SHIGA TOXIN 2 (BEAKER) (test Not detected Not detected code = 2179) POCT-GLUCOSE [id number] 11:53:00 Test Item Value Reference Range Interpretation Comments POC-GLUCOSE METER 159 mg/dL 70-110 H : TESTED A T [facility] 6720 (BEAKER) (test code = DINA Ortega [facility], 1538) [address]: Instructor Nurse/Techni chika ID = [id number] for SANDRA HOLLIS STOOL PATH [id number] 11:36:00 Test Item Value Reference Range Interpretation Comments Pathogen exam charged (test code = Done 2381) [facility] [id number] 11:36:00 Test Item Value Reference Range Interpretation Comments PATHOGEN EXAM CHARGED (BEAKER) (test Done code = 2381) POCT-GLUCOSE [id number] 07:11:00 Test Item Value Reference Range Interpretation Comments POC-GLUCOSE METER 146 mg/dL 70-110 H : TESTED A T [facility] 6720 (BEAKER) (test code = DINA VARGAS [place], 1538) [address]: Instructor Nurse/Techni chika ID = [id number] for MILY GROVE [id number] 06:04:00 Test Item Value Reference Range Interpretation Comments MAGNESIUM (BEAKER) (test code = 1.9 mg/dL 1.6-2.6 627) Instructor Nurse ID - WAGNER LBASIC METABOLIC [id number] 06:04:00 Test Item Value Reference Range Interpretation [...] S NOT APPLICABLE FOR DIALYSIS PATIEN TS. Instructor Nurse ID - PIAYA LHEPATIC FUNCTION [id number] 06:04:00 Test Item Value Reference Range Interpretation [...] (test code = 15 U/L 6-55 347) Instructor Nurse ID - WAGNER LCBC W/PLT COUNT & AUTO [id number] 05:20:00 Test Item Value Reference Range Interpretation [...] PERCENT (BEAKER) (test code = 2801) POCT-GLUCOSE [id number] 21:12:00 Test Item Value Reference Range Interpretation Comments POC-GLUCOSE METER 154 mg/dL 70-110 H : TESTED A T [facility] 6720 (BEAKER) (test code = [facility] [employer] [facility], 1538) [address]: Instructor Nurse/Techni chika ID = [id number] for JEREMY GUPTA POCT-GLUCOSE [id number] 17:43:00 Test Item Value Reference Range Interpretation Comments POC-GLUCOSE METER 152 mg/dL 70-110 H : TESTED A T [facility] 6720 (BEAKER) (test code = [facility] [employer] [facility], 1538) [address]: Instructor Nurse/Techni chika ID = [id number] for PANCHO HAYS SARS-CoV2/RT-PCR (Asymptomatic ONLY)2020-03-25 13:40:00 Test Item Value Reference Range Interpretation Comments SARS-COV2/RT-PCR Negative Not Detected, (test code = Negative 82050-0) SARS-COV-2 [facility] PERFORMING LAB (test code = 23465-6) WINDY (test code = Negative result for [...] of the Act. Fact Sheet for Healthcare Providers:https://www.Wejo/sites/default/f naomy/product/documents/F act_Sheet_HC_Providers_L fjr_PGGK-LvF-9.pdf Fact Sheet for Healthcare Patients:https://www.Elastagen/sites/default/fi les/product/documents/Fa ct_Sheet_Patients_Lyra_S ARS-CoV-2.pdf Performing Laboratory:[facility] [facility], [place] [id number] [place], [place] [address]ARS-COV2/RT-PCR ([facility])2020-03-25 13:40:00 Test Item Value Reference Range Interpretation Comments SARS-COV2/RT-PCR (test code = Negative Not Detected, Negative 2189553) SARS-COV-2 PERFORMING LAB [facility] (test code = 1828712) Negative result for this test determines that [...] 564(g) of the Act.Fact Sheet for Healthcare Providers:https://www.[employer].PanGenX/sites/default/files/product/documents/Fact_Shee p_BG_Hhniwtcqi_Rumc_NZIH-HyG-2.pdfFact Sheet for Healthcare Patients:https://www.[employer]/sites/default/files/product/ documents/Arpz_Ujfgw_Qnaaqnfq_Yblf_LZLR-DyX-2.pdfPerforming Laboratory:[facility], [place] [address]CWLR-SSVZUTF METER 2020-03-25 11:24:00 Test Item Value Reference Range Interpretation Comments POC-GLUCOSE METER 165 mg/dL 70-110 H : TESTED A T [facility] 6720 (CALI) (test code = DINA Ortega [facility], 1538) [address]: Instructor Nurse/Techni chika ID = [id number] for SANDRA HOLLIS Hemoglobin [id number] 10:59:00 Test Item Value Reference Range Interpretation Comments Hemoglobin A1C (test code = 4548-4) 6.9 % 4.3-6.1 H Lab Interpretation (test code = Abnormal 54483-3) [facility]/Free T4 If [id number] 10:59:00 Test Item Value Reference Range Interpretation Comments TSH (test code = 0.622 See_Comment [Automated 45683-3) message] The system which generated this result transmit anamaria reference range : 0.350 - 4.940 uIU/mL. The reference range was not used to interpret this result as normal/abnormal . WINDY (test code = WINDY) Instructor Nurse ID - SHERINEAYA L Lab Interpretation Normal (test code = 92013-5) [facility] T[facility] IF [id number] 10:59:00 Test Item Value Reference Range Interpretation Comments THYROID STIMULATING HORMONE 0.622 uIU/mL 0.350-4.940 (BEAKER) (test code = 772) Instructor Nurse ID - SHERINEAYA LHEMOGLOBIN [id number] 10:59:00 Test Item Value Reference Range Interpretation Comments HEMOGLOBIN A1C (BEAKER) (test code = 6.9 % 4.3-6.1 H 368) Troponin [id number] 10:50:00 Test Item Value Reference Range Interpretation Comments Troponin I (test code = 0.02 ng/mL 0-0.03 36866-4) WINDY (test code = WINDY) Troponin I [...] L Lab Interpretation (test Normal code = 60459-1) [facility]TR[facility] [id number] 10:50:00 Test Item Value Reference Range Interpretation [...] failure, acidosis, acute neurological disease, and persistent tachyarrhythmia.Instructor Nurse ID Suman EDWARD LBASIC METABOLIC [id number] 10:42:00 Test Item Value Reference Range Interpretation [...] S NOT APPLICABLE FOR DIALYSIS PATIEN TS. Instructor Nurse ID Suman EDWARD LHEPATIC FUNCTION [id number] 10:42:00 Test Item Value Reference Range Interpretation [...] (test code = 10 U/L 6-55 347) Instructor Nurse ID - WAGNER [id number] 10:41:00 Test Item Value Reference Range Interpretation Comments Phosphorus (test code = 3.2 mg/dL 2.3-4.7 2777-1) WINDY (test code = WINDY) Instructor Nurse ID - WAGNER L Lab Interpretation (test Normal code = 60308-9) [facility]US2020-07-15 10:41:00 Test Item Value Reference Range Interpretation Comments PHOSPHORUS (BEAKER) (test code = 3.2 mg/dL 2.3-4.7 604) Instructor Nurse ID - WAGNER [id number] 10:41:00 Test Item Value Reference Range Interpretation Comments MAGNESIUM (BEAKER) (test code = 2.0 mg/dL 1.6-2.6 627) Instructor Nurse ID - WAGNER LPOCT-GLUCOSE [id number] 09:10:00 Test Item Value Reference Range Interpretation Comments POC-GLUCOSE METER 116 mg/dL 70-110 H : TESTED A T [facility] 6720 (BEAKER) (test code = DINA Jordan [facility], 1538) [address]: Instructor Nurse/Techni chika ID = [id number] for LANCE TRACEY RAD, CHEST, 1 VIEW, NON [id number] 07:49:00Reason for exam:->chest painShould this be performed at the bedside?->YesFINAL REPORT CLINICAL HISTORY: chest pain TECHNIQUE: 1 view of the chest. COM PARISON: None IMPRESSION: There are linear bandlike opacities in the bilateral mid and lower lungs. There are no significant effusions. The cardiomediastinal silhouette is magnified by technique. Signed: Keturah Mensah MDReport Verified Date/Time: 03/25/2020 07:49:59 Reading Location: [facility] Radiology Reading Room XR chest 1 view portable / [id number] 07:49:00Interface, External Ris In - 03/25/2020 7:52 AM CDTFINAL REPORT CLINICAL HISTORY: chest pain TECHNIQUE: 1 view of the chest. COMPARISON: None IMPRESSION: There are linear bandlike opacities in the bilateral mid and lower lungs. There are no significant effusions. The cardiomediastinal silhouette is magnified by technique. Signed: Keturah Mensah MDReport Verified Date/Time: 07:49:59 [facility] Hospital[facility]ostridium difficile GDH [id number] 06:54:00 Test Item Value Reference Range Interpretation Comments C. Difficle Toxin Negative Negative (test code = 3778370595) C. Difficile GDH Negative Negative No indicati on of Antigen (test code = Clostri dium 7967631404) difficile infection and n o colonization. Discontinue enteric isolati on and therapy. WINDY (test code = Testing performed WINDY) by Alere Rapid Cassette Assay. For GDH, published sensitivity of the assay is 98.7% compared to cytotoxicity testing. For Toxin AB, published sensitivity is 87.8% and specificity 99.4% compared to cytotoxicity testing.Verificati on of kit performance was done by the [facility] Microbiology Lab prior to clinical use. Lab Interpretation Normal (test code = 82378-8) [facility]. DIFFICILE GDH [id number] 06:54:00 Test Item Value Reference Range Interpretation Comments CDT TOXIN (test code Negative Negative = 0576485062) CDT GDH ANTIGEN (test Negative Negative No ind ication of code = 8596144078) Clostridi um difficile infection and n o colonization. Discontinue ent perez isolation and t herapy. Testing performed by Alere Rapid Cassette Assay. For GDH, published sensitivity of the assay is 98.7% compared to cytotoxicity testing. For Toxin AB, published sensitivity is 87.8% and specificity 99.4% compared to cytotoxicity testing.Verification of kit performance was done by the [facility] Microbiology Lab prior to clinical use.Urinalysis with Microscopic If [id number] 06:35:00 Test Item Value Reference Range Interpretation Comments Color, UA (test code = Yellow 5778-6) Clarity, UA (test code = Clear 5767-9) Specific [place], UA (test 1.033 1.001-1.035 code = 5811-5) pH, UA (test code = 5.5 5.0-8.0 5803-2) Protein, UA (test code = 10 mg/dL Negative A 31784-8) Glucose, UA (test code = Negative Negative 365) Ketones, UA (test code = Negative Negative 2514-8) Bilirubin, UA (test code = Negative Negative 75429-4) Blood, UA (test code = Negative Negative 34407-0) Nitrite, UA (test code = Negative Negative 5802-4) Leukocytes, UA (test code Large Negative A = 5799-2) Urobilinogen, UA (test 0.2 mg/dL 0.2-1 code = 23459-0) Specimen Source (test code = 2795) WINDY (test code = WINDY) Instructor Nurse ID - [auto]Instructor Nurse ID - tech Lab Interpretation (test Abnormal code = 39281-6) [facility] Hospital[facility]inalysis Microscopic [id number] 06:35:00 Test Item Value Reference Range Interpretation Comments RBC, UA (test 3 See_Comment [Automated me ssage] code = 66513-9) The system [facility] generated this result transmitted ref erence range: /HPF. Th e reference range was not used to int erpret this result as normal/abnormal . WBC, UA (test 11 See_Comment [Automated me ssage] code = 5821-4) The system [facility] generated this result transmitted ref erence range: /HPF. Th e reference range was not used to int erpret this result as normal/abnormal . Bacteria, UA Rare (test code = 01162-0) Squam Epithel, 1 See_Comment [Automated m essage] UA (test code = The system [facility] 52849-1) generated this result transmitted ref erence range: /HPF. Th e reference range was not used to int erpret this result as normal/abnormal . WINDY (test code Instructor Nurse ID - tech = WINDY) [facility]IN[facility]IS WITH MICROSCOPIC IF [id number] 06:35:00 Test Item Value Reference Range Interpretation [...] = 463) SOURCE(BEAKER) (test code = 2795) Instructor Nurse ID - [auto]Instructor Nurse ID - techURINALYSIS [id number] 06:35:00 Test Item Value Reference Range Interpretation Comments RBC UA (BEAKER) (test code = 519) 3 /HPF WBC UA (BEAKER) (test code = 520) 11 /HPF BACTERIA (BEAKER) (test code = 517) Rare SQUAMOUS EPITHELIAL (BEAKER) (test 1 /HPF code = 516) Instructor Nurse ID - techPOCT-GLUCOSE [id number] 05:08:00 Test Item Value Reference Range Interpretation Comments POC-GLUCOSE METER 128 mg/dL 70-110 H : TESTED A T [facility] 6720 (BEAKER) (test code = DINA [place], 1538) [address]: Instructor Nurse/Techni chika ID = [id number] for As Meena beckett
--- NOTE | 2021-02-02 12:17 | RAD REPORT ---
EXAM DESCRIPTION: CT - Head Brain Wo Cont - 02/02/2021 12:09 pm CLINICAL HISTORY: Syncope COMPARISON: 2019 TECHNIQUE: Computed axial tomography of the head was obtained. IV contrast was not requested. All CT scans are performed using dose optimization technique as appropriate and may include automated exposure control or mA/KV adjustment according to patient size. FINDINGS: An intracranial bleed is not seen . The ventricles are normal in caliber. No extra-axial fluid collection is noted. A right craniotomy has been performed. Low-density area within the right basal ganglia are unchanged likely old lacunar infarction. Fluid within the sinuses/ mastoids is not seen. IMPRESSION: No acute intracranial abnormality is seen. If patient's symptoms persist MRI of the bra in would be recommended.
--- NOTE | 2021-02-02 13:14 | RAD REPORT ---
EXAM DESCRIPTION: RAD - Chest Single View - 02/02/2021 12:54 pm CLINICAL HISTORY: syncope COMPARISON: Portable March 2020 TECHNIQUE: AP portable chest image was obtained 02/02/2021 12:54 pm . FINDINGS: No peripheral mass or consolidation. Lungs are better aerated than on the comparison study . Fullness of the right hilum and right paratracheal region has not changed dating back to July 13. Heart size is upper normal. No acute vascular engorgement. No measurable pleural effusion and no pneumothorax. Bony degenerative changes are present worse in each shoulder joint. Fullness of the le ft aortic not has not changed. This could be aortic aneurysm, tortuosity or a combination. IMPRESSION: No acute cardiopulmonary process. Right-sided mediastinal and hilar fullness probably a summation of normal vasculature. This has not c hanged back to 2019. Likewise, fullness of the aortic knob is stable back to 2019. This could be chronic aortic aneurysm, tortuosity of the aorta or a combination.
[2021-02-02 13:42] LABS: Absolute Lymphocytes (CBC) 1.2 K/uL (0.7-4.9); Basophils % 0.2 % (0-1.3); Hematocrit 22.8 % (36.0-45.0); Lymphocytes % 11.7 % (15.3-44.8); MPV 8.1 fL (7.6-11.3); RBC Red Blood Cell Count 3.58 M/uL (3.86-4.86)
[2021-02-02 13:50] LABS: Protime INR 1.1
[2021-02-02 13:56] LABS: ALT/SGPT 15 U/L (12-78); AST/SGOT 8 U/L (15-37); Albumin 3.6 g/dL (3.4-5.0); Alkaline Phosphatase 84 U/L (45-117); BUN Blood Urea Nitrogen 18 mg/dL (7-18); Bicarbonate 27 mmol/L (21-32); Bilirubin Direct < 0.1 mg/dL (0-0.2); Bilirubin Total 0.2 mg/dL (0.2-1.0); Glucose Level 160 mg/dL (74-106); Lipase 44 U/L (73-393); Magnesium 2.1 mg/dL (1.8-2.4); Potassium 4.3 mmol/L (3.5-5.1); Protein, Total 7.2 g/dL (6.4-8.2); Sodium Level 142 mmol/L (136-145); Troponin (Emerg Dept Use Only) < 0.02 ng/mL (0.0-0.045)
[2021-02-02 14:56] LABS: Urine Blood Trace-lysed (Negative); Urine Glucose Negative (Negative); Urine Protein Negative (Negative)
--- NOTE | 2021-02-02 15:08 | ER ---
Nurse's Notes [facility] Name: Skylar Grossman Age: 85 yrs Sex: Female : 1935 Arrival Date: 02/02/2021 Time: 11:33 Bed 19 Private MD: Diagnosis: Syncope and collapse;Anemia, unspecified;GI bleed Presentation: 02/02 11:37 Chief complaint: EMS states: AMS, Hypotension. EMS stated that the sister found her on kg the toilet passed out. When arriving on scene pt was confused and lethargic. 20 G to right A/C started and 1L NS bolus given pt responded well and started to come to. In route to hospital pt received 700 ml NS. Coronavirus screen: Client denies travel out of the [place] in the last 14 days. Ebola Screen: Patient negative for fever greater than or equal to 101.5 degrees Fahrenheit, and additional compatible Ebola Virus Disease symptoms Patient denies exposure to infectious person. Patient denies travel to an Ebola-affected area in the 21 days before illness onset. Initial Sepsis Screen: Does the patient meet any 2 criteria? No. Patient's initial sepsis screen is negative. Does the patient have a suspected source of infection? No. Patient's initial sepsis screen is negative. Risk Assessment: Do you want to hurt yourself or someone else? Patient reports no desire to harm self or others. Onset of symptoms was February 02, 2021. 11:37 Method Of Arrival: EMS: [facility] kg 11:37 Acuity: FARIDA 3 kg - Immunization history:: Adult Immunizations unknown. - Family history:: not pertinent. - Social history:: Smoking status: unknown. - Hospitalizations: : No recent hospitalization is reported. Screenin:52 Abuse screen: Denies threats or abuse. Nutritional screening: No deficits noted. ap3 Tuberculosis screening: No symptoms or risk factors identified. Fall Risk No fall in past 12 months (0 pts). No secondary diagnosis (0 pts). IV access (20 points). Ambulatory Aid- None/Bed Rest/Nurse Assist (0 pts). Gait- Normal/Bed Rest/Wheelchair (0 pts) Mental Status- Oriented to own ability (0 pts). Total Nettles Fall Scale indicates No Risk (0-24 pts). Exposure risk/Travel Screening: None identified. Assessment: 11:49 General: Appears in no apparent distress. comfortable, Behavior is calm, cooperative, ap3 appropriate for age. Pain: Denies pain. Neuro: Level of Consciousness is awake, alert, obeys commands, Oriented to person, place, time, situation, Pick Pulling Machine Tender are equal bilaterally. Neuro: Reports a syncopal episode. Cardiovascular: Capillary refill < 3 seconds. Respiratory: Airway is patent Respiratory effort is even, unlabored, Respiratory pattern is regular, symmetrical. GI: No signs and/or symptoms were reported involving the gastrointestinal system. : No signs and/or symptoms were reported regarding the genitourinary system. EENT: No signs and/or symptoms were reported regarding the EENT system. Derm: No signs and/or symptoms reported regarding the dermatologic system. Musculoskeletal: No signs and/or symptoms reported regarding the musculoskeletal system. 13:10 Reassessment: Patient is alert, oriented x 3, equal unlabored respirations, skin ap3 warm/dry/pink. family member at the bedside. 14:18 General: patient placed on bedside commode. . zb 14:28 Reassessment: patient produced 900ml of urine. sample collected and sent to lab. zb patient placed back into bed, and reconnected to monitoring. 17:42 Reassessment: Patient and/or family updated on plan of care and expected duration. Pain ap3 level reassessed. patient is complaining of headache. provider notified. . 18:57 Reassessment: patient states she no longer wants to be admitted. . ap3 19:30 Reassessment: Patient and/or family updated on plan of care and expected duration. Pain ea level reassessed. Pt refusing transfusion, sister spoke with Dr. Angel pt refusing blood transfusion. 19:48 Reassessment: Pt agreed to transfusion. Pt consented. Report given to receiving nurse ea on fourth floor. Vital Signs: 11:37 BP 156 / 96; Pulse 74; Resp 20; Temp 97.5(O); Pulse Ox 99% on R/A; Weight 72.57 kg (R); kg Height 5 ft. 4 in. (162.56 cm) (R); 11:51 BP 156 / 96; Pulse 75; Resp 18; Pulse Ox 100% ; ap3 14:29 BP 157 / 99; Pulse 81; Resp 19; Pulse Ox 100% on R/A; zb 15:45 BP 146 / 72; Pulse 71; Resp 19; Pulse Ox 100% on R/A; ap3 17:00 BP 130 / 95; Pulse 72; Resp 21; Pulse Ox 100% on R/A; ap3 17:42 BP 177 / 69; Pulse 94; Pulse Ox 98% on R/A; ap3 18:57 BP 168 / 82; Pulse 76; Resp 19; Pulse Ox 96% on R/A; ap3 11:37 Body Mass Index 27.46 (72.57 kg, 162.56 cm) kg ED Course: 11:33 Patient arrived in ED. rn 11:33 Kareem Atkinson MD is Attending Physician. rn 11:39 Bianca Watts RN is Primary Nurse. ap3 11:42 Triage completed. kg 11:43 Maintain EMS IV. Dressing intact. Good blood return noted. Site clean \\T\\ dry. Gauge \\T\\ kg site: 20 Righ AC. 11:53 Arm band placed on left wrist. ap3 11:53 Patient has correct armband on for positive identification. Bed in low position. Call ap3 light in reach. Side rails up X2. threat monitoring analyst on. Pulse ox on. NIBP on. Door closed. Noise minimized. Warm blanket given. 11:54 EKG done, by ED staff, reviewed by Kareem Atkinson MD. 5 12:09 CT Head Brain wo Cont In Process Unspecified. EDMS 12:54 XRAY Chest (1 view) In Process Unspecified. EDMS 13:20 Inserted saline lock: 22 gauge in left antecubital area, using aseptic technique. Blood [facility] collected. 13:20 Initial lab(s) drawn, by in, sent to lab. First set of blood cultures drawn by in, [facility] Second set of blood cultures drawn by in. 13:22 Lactate Sent. 5 13:22 Blood Culture Adult (2) Sent. 5 13:22 Basic Metabolic Panel Sent. 5 13:22 CBC with Diff Sent. 5 13:22 Hepatic Function Sent. 5 13:22 Lipase Sent. 5 13:22 Magnesium Sent. 5 13:22 Protime (+inr) Sent. [facility] 13:22 Ptt, Activated Sent. [facility] 13:22 Troponin (emerg Dept Use Only) Sent. 5 13:49 Notified ED physician of a critical lab result(s). HGB 6.7. ll1 14:32 ED physician to see patient. zb 15:07 Edwardo Angel MD is Hospitalizing Provider. rn 15:30 COVID-19 : Document "Date of Symptom Onset" if Symptomatic. Sent. 5 15:30 Occult Blood--Ancillary Sent. mh5 15:30 Packed RBC Leukored Sent. 5 15:30 Type And Screen Sent. 5 15:30 CBC Smear Scan Sent. 5 15:30 Bb Add On Sent. mh5 15:31 Urine Culture Sent. mh5 15:31 Urine Microscopic Only Sent. mh5 15:31 T\\T\\S collected, blood band applied to patient. mh5 16:11 Notified ED physician of other Patient refused infusion of blood products. Explanation ll1 given of need, verbalized understanding but still refused. Dr. Atkinson and RN informed. 19:16 Primary Nurse role handed off by Bianca Watts RN mw2 19:46 No provider procedures requiring assistance completed. Patient admitted, IV remains in ea place. Administered Medications: 15:44 Drug: ProTONIX (pantoprazole) 40 mg Route: IVP; Site: right antecubital; ap3 18:58 Follow up: Response: No adverse reaction ap3 16:13 Drug: ProTONIX (pantoprazole) 8 mg/hr Route: IV; Rate: 25 ml/hr; Site: right ap3 antecubital; 19:50 Follow up: IV Status: Infusion continued upon admission ea Point of Care Testing: Guaiac: 15:01 Stool Guaiac: Positive; Stool Hemoccult Control: Pass; rn Outcome: 15:07 Decision to Hospitalize by Provider. rn 19:49 Admitted to Med/surg accompanied by tech, via stretcher, room 427, with chart, Report ea called to Receiving nurse on fourth floor 19:49 Condition: stable 19:49 Instructed on the need for admit, Demonstrated understanding of instructions. 20:04 Patient left the ED. ea Signatures: Dispatcher [employer] EDMS Kareem Atkinson MD MD rn Martinez, Maria 5 Sophie Hanna RN RN ea Bianca Watts RN RN ap3 Rojas Mao mw2 Doc French RN RN ll1 Kelsy Robert RN RN zb Cecily Moreno kg
--- NOTE | 2021-02-02 15:08 | EDPHYS ---
Physician Documentation [facility] Name: Skylar Grossman Age: 85 yrs Sex: Female : 1935 Arrival Date: 02/02/2021 Time: 11:33 Bed 19 Private MD: ED Physician Kareem Atkinson HPI: 02/02 11:36 This 85 yrs old Female presents to ER via Unassigned with complaints of rn syncope. 11:36 The patient has experienced syncope. Onset: The symptoms/episode began/occurred 1 rn hour(s) ago. Duration: This was a single episode. Associated injury: The patient did not suffer any apparent associated injury. Associated signs and symptoms: Pertinent positives: confusion, lightheadedness. Current symptoms: headache. The patient has experienced similar episodes in the past. Family told EMS that was using bathroom 1 hour ago and passed out. Family reports to EMS that this has happened multiple times in past, but today took a little longer for her to snap out of it. EMS reports hypotensive on scene, confused, slurred speech, generalized weakness, that resolved after 700cc fluid IV. EMS reports initial glucose normal and BP was in 50s systolic. . 11:36 Pt denies chest pain/sob/abd pain/nausea/vomiting/diarrhea. + mild headache. Denies rn focal neurological problem. . - Immunization history:: Adult Immunizations unknown. - Family history:: not pertinent. - Social history:: Smoking status: unknown. - Hospitalizations: : No recent hospitalization is reported. ROS: 11:36 Constitutional: Negative for fever, chills, and weight loss, Eyes: Negative for injury, rn pain, redness, and discharge, ENT: Negative for injury, pain, and discharge, Neck: Negative for injury, pain, and swelling, Cardiovascular: Negative for chest pain, palpitations, and edema, Respiratory: Negative for shortness of breath, cough, wheezing, and pleuritic chest pain, Abdomen/GI: Negative for abdominal pain, nausea, vomiting, diarrhea, and constipation, Back: Negative for injury and pain, : Negative for injury, bleeding, discharge, and swelling, MS/Extremity: Negative for injury and deformity, Skin: Negative for injury, rash, and discoloration, Neuro: Negative for numbness, tingling, and seizure. Exam: 11:36 Constitutional: This is a well developed, well nourished patient who is awake, alert, rn and in no acute distress. Head/Face: Normocephalic, atraumatic. Eyes: Periorbital areas with no swelling, redness, or edema. ENT: Dry MM Cardiovascular: Regular rate and rhythm. No pulse deficits. Respiratory: Speaking full sentences. No increased work of breathing, no retractions or nasal flaring. Abdomen/GI: soft, non-tender Skin: Warm, dry, no rash, no cyanosis MS/ Extremity: Pulses equal, no cyanosis. Neuro: Awake and alert, GCS 15, oriented to person, place, time, and situation. Cranial nerves II-XII grossly intact. Motor strength 5/5 in all extremities without drift. Sensory grossly intact. Cerebellar exam normal. Vital Signs: 11:37 BP 156 / 96; Pulse 74; Resp 20; Temp 97.5(O); Pulse Ox 99% on R/A; Weight 72.57 kg (R); kg Height 5 ft. 4 in. (162.56 cm) (R); 11:51 BP 156 / 96; Pulse 75; Resp 18; Pulse Ox 100% ; ap3 14:29 BP 157 / 99; Pulse 81; Resp 19; Pulse Ox 100% on R/A; zb 15:45 BP 146 / 72; Pulse 71; Resp 19; Pulse Ox 100% on R/A; ap3 17:00 BP 130 / 95; Pulse 72; Resp 21; Pulse Ox 100% on R/A; ap3 17:42 BP 177 / 69; Pulse 94; Pulse Ox 98% on R/A; ap3 18:57 BP 168 / 82; Pulse 76; Resp 19; Pulse Ox 96% on R/A; ap3 11:37 Body Mass Index 27.46 (72.57 kg, 162.56 cm) kg MDM: 11:33 Patient medically screened. rn 15:06 Differential Diagnosis: GI bleed, idiopathic syncope, vasovagal episode. Data reviewed: rn vital signs, nurses notes, lab test result(s), EKG, radiologic studies, CT scan, plain films, and as a result, I will admit patient. Counseling: I had a detailed discussion with the patient and/or guardian regarding: the historical points, exam findings, and any diagnostic results supporting the discharge/admit diagnosis, lab results, radiology results, the need for further work-up and treatment in the hospital. Response to treatment: the patient's symptoms have markedly improved after treatment, and as a result, I will admit patient. Admission orders: after a detailed discussion of the patient's condition and case, the admit orders are written by me. ED course: Consulted with Dr. Burton, will come see patient and try and scope her. 2 units of PRBC ordered. No gross blood, likely slow trickle over time. Stable vitals. Notified Dr. Angel of admission.. 02/02 11:35 Order name: Basic Metabolic Panel; Complete Time: 15:00 02/02 11:35 Order name: CBC with Diff rn 02/02 11:35 Order name: Hepatic Function; Complete Time: 15:00 02/02 11:35 Order name: Lipase; Complete Time: 15:00 02/02 11:35 Order name: Magnesium; Complete Time: 15:00 02/02 11:35 Order name: Protime (+inr); Complete Time: 15:00 02/02 11:35 Order name: Ptt, Activated; Complete Time: 15:00 02/02 11:35 Order name: Troponin (emerg Dept Use Only); Complete Time: 15:00 02/02 11:35 Order name: Blood Culture Adult (2) 02/02 11:35 Order name: Lactate; Complete Time: 13:48 02/02 11:36 Order name: Urine Culture 02/02 11:36 Order name: Urine Microscopic Only 02/02 13:51 Order name: CBC Smear Scan ED[facility] 02/02 11:35 Order name: CT Head Brain wo Cont; Complete Time: 12:59 rn 02/02 11:35 Order name: EKG; Complete Time: 11:36 rn 02/02 11:35 Order name: Cardiac monitoring; Complete Time: 11:43 rn 02/02 11:35 Order name: EKG - Nurse/Tech; Complete Time: 11:54 rn 02/02 11:35 Order name: IV Saline Lock; Complete Time: 11:43 rn 02/02 11:35 Order name: Labs collected and sent; Complete Time: 13:23 rn 02/02 11:35 Order name: XRAY Chest (1 view); Complete Time: 13:18 rn 02/02 14:40 Order name: Type And Screen 02/02 14:42 Order name: Bb Add On 02/02 14:44 Order name: Packed RBC Leukored [facility] 02/02 14:56 Order name: Urine Dipstick-Ancillary; Complete Time: 15:00 [facility] 02/02 15:02 Order name: Occult Blood--Ancillary 02/02 15:14 Order name: COVID-19 : Document "Date of Symptom Onset" if Symptomatic. 02/02 16:53 Order name: SARS-COV-2 RT PCR [facility] 02/02 11:35 Order name: O2 Per Protocol; Complete Time: 11:43 rn 02/02 11:35 Order name: O2 Sat Monitoring; Complete Time: 11:43 rn 02/02 11:35 Order name: Urine Dipstick-Ancillary (obtain specimen); Complete Time: 14:30 rn Administered Medications: 15:44 Drug: ProTONIX (pantoprazole) 40 mg Route: IVP; Site: right antecubital; ap3 18:58 Follow up: Response: No adverse reaction ap3 16:13 Drug: ProTONIX (pantoprazole) 8 mg/hr Route: IV; Rate: 25 ml/hr; Site: right ap3 antecubital; 19:50 Follow up: IV Status: Infusion continued upon admission ea Point of Care Testing: Guaiac: 15:01 Stool Guaiac: Positive; Stool Hemoccult Control: Pass; rn Disposition: 02/02/21 15:07 Hospitalization ordered by Edwardo Angel for Inpatient Admission. Preliminary diagnosis are Syncope and collapse, Anemia, unspecified, GI bleed. - Bed requested for Telemetry/MedSurg (Inpatient). - Status is Inpatient Admission. ea - Condition is Stable. - Problem is new. - Symptoms have improved. Signatures: Dispatcher [employer] [facility] Nicole Ramirez RN RN dw Nieto, Roman, MD MD rn Antunez, Elena, RN RN ea Prokisch, Amanda, RN RN ap3 Corrections: (The following items were deleted from the chart) 18:38 15:07 Hospitalization Ordered by Edwardo Angel MD for Inpatient Admission. Preliminary dw diagnosis is Syncope and collapse; Anemia, unspecified; GI bleed. Bed requested for Telemetry/MedSurg (Inpatient). Status is Inpatient Admission. Condition is Stable. Problem is new. Symptoms have improved. rn 20:04 18:38 02/02/2021 15:07 Hospitalization Ordered by Edwardo Angel MD for Inpatient ea Admission. Preliminary diagnosis is Syncope and collapse; Anemia, unspecified; GI bleed. Bed requested for Telemetry/MedSurg (Inpatient). Status is Inpatient Admission. Condition is Stable. Problem is new. Symptoms have improved. dw
[2021-02-02 15:36] LABS: Blood Morphology Comment NOTED (NOT SEEN); Platelet Estimate ADEQ; White Blood Cell Scan OK (OK)
[2021-02-02 15:37] LABS: Hypochromasia 2+; Ovalocytes 1+; Polychromasia 1+
[2021-02-02] MEDS ORDERED: PANTOPRAZOLE 40 MG INJ ONE ×2 (15:52→21:18)
[2021-02-02 15:56] LABS: Urine Bacteria <20 /HPF (<20); Urine RBC <5 /HPF (NONE SEEN)
[2021-02-02] MEDS ORDERED: PANTOPRAZOLE INJ 80 MG in NA CHLORIDE 0.9% 250 ML IV SCH (16:00)
[2021-02-02] MEDS: PANTOPRAZOLE INJ 80 MG in NA CHLORIDE 0.9% 250 ML IV SCH (20:31)
[2021-02-02] MEDS ORDERED: D5 0.45 NS 1,000 ML IV SCH (20:31)
[2021-02-02] MEDS ORDERED: ONDANSETRON 4 MG/2 ML VIAL IV PRN (20:31)
[2021-02-02] MEDS ORDERED: NA CHLORIDE 0.9% 250 ML ONE (21:18)
[2021-02-02] MEDS: D5 0.45 NS 1,000 ML IV SCH (22:14)
[2021-02-02] MEDS ORDERED: NA CHLORIDE 0.9% 100 ML ONE (22:45)
[2021-02-02] MEDS ORDERED: clonazePAM 1 MG TAB PO PRN (22:49)
[2021-02-02] MEDS ORDERED: cloNIDine HCL 0.1 MG TAB PO PRN (22:51)
[2021-02-02] MEDS: lisinopriL 20 MG TAB PO SCH (23:00)
[2021-02-03 00:53] VITALS: BMI 29.6
[2021-02-03] MEDS ORDERED: NA CHLORIDE 0.9% 100 ML ONE ×2 (02:34→06:11)
[2021-02-03 05:44] LABS: Absolute Lymphocytes (CBC) 1.7 K/uL (0.7-4.9); Basophils % 0.7 % (0-1.3); Lymphocytes % 24.1 % (15.3-44.8); MPV 7.8 fL (7.6-11.3)
[2021-02-03 05:54] LABS: Potassium 3.6 mmol/L (3.5-5.1)
[2021-02-03] MEDS ORDERED: PANTOPRAZOLE 40 MG INJ ONE (06:14)
[2021-02-03] MEDS ORDERED: NA CHLORIDE 0.9% 250 ML ONE (06:14)
[2021-02-03] MEDS: PANTOPRAZOLE INJ 80 MG in NA CHLORIDE 0.9% 250 ML IV SCH ×3 (06:31→21:46)
[2021-02-03 06:55] LABS: White Blood Cell Scan OK (OK)
[2021-02-03 06:56] LABS: Anisocytosis 2+; Blood Morphology Comment NOTED (NOT SEEN); Platelet Estimate ADEQ
[2021-02-03 06:57] LABS: Hypochromasia 1+
[2021-02-03] MEDS ORDERED: ACETAMINOPHEN 500 MG TAB PO PRN (07:29)
[2021-02-03] MEDS: TAMSULOSIN 0.4 MG SR CAP PO SCH (07:51)
[2021-02-03] MEDS: FLUOXETINE 20 MG CAP PO SCH (07:51)
[2021-02-03] MEDS: NEBIVOLOL HCL 5 MG TAB PO SCH (07:51)
[2021-02-03] MEDS: METFORMIN ER 500 MG TAB PO SCH ×2 (07:51→21:46)
[2021-02-03] MEDS: lisinopriL 20 MG TAB PO SCH (07:51)
[2021-02-03] MEDS: GABAPENTIN 300 MG CAP PO SCH ×3 (07:52→21:48)
[2021-02-03] MEDS ORDERED: SUMATRIPTAN SUCCI 50 MG TAB PO PRN (08:03)
--- NOTE | 2021-02-03 12:01 | EKG ---
Test Date: 2021-02-02 Test Time: 11:45:04 Extruder Operator Multiple: DOMENICO MEASUREMENT RESULTS: Intervals: Rate: 75 [place]: QRSD: 136 QT: 450 QTc: 502 Sachse: P: [place]: QRS: 54 T: 3 INTERPRETIVE STATEMENTS: Wide QRS rhythm Right bundle branch block T wave abnormality, consider lateral ischemia Abnormal ECG Compared to ECG 04/06/2020 13:50:32 Uncertain supraventricular rhythm now present T-wave abnormality now present Possible ischemia now present Sinus rhythm no longer present Atrial premature complex(es) no longer present Electronically Signed On 02-03-21 11:57:20 CDT by Chintan Lopez
--- NOTE | 2021-02-03 14:09 | CON ---
Date of Consultation: 02/03/2021 Reason For Consultation: Anemia with hemoglobin 6.6 with syncope. History Of Present Illness: The patient is an 85-year-old white female with history of orthostatic h ypotensive episodes, diabetes, hypertension, hyperlipidemia, stroke, depression, laparoscopic cholecy stectomy, appendectomy, and hysterectomy. The patient presented to hospital with syncope, found to h ave a hemoglobin down to 6.6, transfused up to 7.8 currently. She denies any melena, hematochezia, h ematemesis, coffee-ground hematuria, dysuria, polydipsia, or hemoptysis. She says she has seen no bl ood; however, hemoglobin is down to 6.6. The last colonoscopy was approximately 20 years ago and miranda s not know the findings at that time. She has never had an upper endoscopy. Past Medical History: Significant for episodes of hypotensive orthostatic, blood pressure drops acut immanuel, diabetes, hypertension, hyperlipidemia, stroke, depression, laparoscopic cholecystectomy, hyster ectomy, and appendectomy. Medications: See list. Allergies: TO CODEINE AND DEMEROL. Social History: She is a , 3 children. No tobacco. No alcohol. Family History: Father and mother with hypertension. Mother from myocardial infarction. Mehul richardson in the hospital at the age of [age] years old, she states. Review of Systems: The patient has syncope, headaches, lightheadedness, confusion at least on admission to the ER. In t he field, she was noted to have a systolic blood pressure in the 50s. EMT prior to admission to the hospital. The patient denies any current seizures, chest pain, shortness of breath, melena, hematoch ezia, hematemesis, coffee-ground emesis, hematuria, dysuria, polydipsia, or hemoptysis. No muscle ac hes, joint aches, backaches. She does have depression and maybe some anxiety with this event. Physical Examination: Vital Signs: She is 5 feet 4 inches, 172 pounds, BMI 29.7 kg/m2. Temperature 97.7 degrees Fahrenhei t, pulse 66, respirations 18, blood pressure 177/98, O2 saturation 99%. General: She is an obese white female, lying in bed, in no acute distress. HEENT: Normocephalic, atraumatic. Anicteric. Pupils equal, round, and reactive to light. Extraocu lar movements intact. Oropharynx is clear. Neck: Supple. No masses. Respirations: Clear to auscultation bilaterally. Cardiac: Regular rate and rhythm. No gallops. Abdomen: Positive bowel sounds. Soft, nontender, and nondistended. No hepatosplenomegaly. Mildly obese. Extremities: No clubbing, cyanosis, or edema. 2+ pulses. Neurologic: Alert and oriented x3. Grossly nonfocal. 5/5 motor, sensation intact to light touch. Laboratory Data: The patient has a hemoglobin of 6.6, up to 7.8 after blood transfusion. White coun t of 7.3, hematocrit 25, MCV of 67. On admission, MCV of 63.7. Platelet count of 260, polys of 65%, lymphocytes 24%, monocytes 8%, eosinophils 2%. PT of 12.7, INR of 1.10, PTT of 45.7. Sodium 142, p otassium 3.6, chloride 111, bicarb 25, BUN of 13, creatinine of 0.7, glucose 132, calcium 8.1, magnes ium 2.1, total bilirubin 0.3, direct bilirubin less than 0.1, AST of 8, ALT of 15, alkaline phosphata se 84. Troponin I less than 0.02. Total protein 7.2, albumin 3.6, lipase 44. UA; some trace blood, otherwise negative. COVID-19 testing was negative on February 02, yesterday. She has chest x-ray of _ stable since 2019. No acute pulmonary process. She had a CT of her head, which was negati ve. Impression: 1.Anemia, hemoglobin 6.6 with syncope. The patient does have a history of orthostatic hypotensive e vents that are unexplained. Her blood pressure was 50s in the field; however, at this time, her hemo globin was down to 6.6. Her last colonoscopy was approximately 20 years ago. No prior EGD. We need to investigate with EGD and colonoscopy on this patient and possibly small bowel evaluation. Urinal ysis was negative. The patient has not seen any blood including no melena, hematochezia, hematemesis , coffee-ground emesis, hemoptysis, hematuria, or other. The patient, however, refuses GI interventi ons at this time. She refuses EGD and colonoscopy, stated she does not want it. I explained the pat ient the benefits, risks, and alternatives to the procedure. The patient is still reluctant, stating she just wants to recover. Primary care physician is to speak with the patient as well as hospital staff. 2.History of orthostatic hypotensive events recurrent, diabetes, hypertension, hyperlipidemia, strok e, depression, cholecystectomy, appendectomy, and hysterectomy. Recommendations: 1.EGD and colonoscopy when the patient agrees. 2.PPI therapy. 3.Check stool guaiacs x3. 4.Continue to check serial H and H and transfuse p.r.n. AL/KARISSA Voice ID: [id number] Report ID: [id number]
[2021-02-03] MEDS: cloNIDine HCL 0.1 MG TAB PO PRN (16:01)
--- NOTE | 2021-02-03 20:17 | P.SSS ---
Patient History Date of Service: 02/03/21 Reason for admission: DIZZY, WEAKNESS History of Present Illness: MR. MCCAIN HAS DM, HTN, RECURRENT STROKES, DOES NOT WALK AND IS FOUND TO HAVE HG OF 6.6 GM TODAY. WHEN I CAME TODAY SHE WAS HAVING HEADACHES. SHE WAS VERY AGITATED. I ASKED WHAT SHE TAKES AT HOME FOR HEADACHES. SHE TAKES EXEDRIN. THIS IN ADDITION TO PLAVIX GAVE RISE TO HER ANEMIA. SHE DID NOT WANT TO STAY FOR BLOOD TRANSFUSION. I ADVISED AND SHE STAYED. SHE REFUSED TO GET EGD DONE BUT LATER ABOUT 8 PM SHE SAYS SHE WILL DO EGD. DR. KIM CAME AND LEFT. I GAVE HER IMITREX AND IT WORKED GREAT FOR MIGRAINES. Allergies codeine [Codeine] Adverse Reaction (Intermediate, Verified 07/23/19 22:37) HEADACHE/NAUSEATED meperidine HCl [From Demerol] Adverse Reaction (Intermediate, Verified 07/23/19 22:37) DIZZINESS/NAUSEA Home medications list reviewed: Yes Home Medications: Amitriptyline HCl 100 mg PO BEDTIME 05/03/19 Clopidogrel Bisulfate [Plavix*] 75 mg PO DAILY 05/03/19 Fluoxetine HCl [Prozac] 20 mg PO DAILY 05/03/19 Gabapentin 300 mg PO TID 05/03/19 Insulin Glargine,Hum.rec.anlog [Lantus Solostar] 20 units SQ BEDTIME 05/03/19 Lisinopril [Zestril] 40 mg PO BEDTIME 05/03/19 Melatonin [Melatonin*] 3 mg PO BEDTIME 05/03/19 Metformin ER [Glucophage ER*] 500 mg PO BID 05/03/19 Simvastatin 20 mg PO BEDTIME 05/03/19 cloNIDine HCL [Catapres] 0.1 mg PO TIDP PRN 05/03/19 Nebivolol HCl [Bystolic*] 10 mg PO DAILY 02/02/21 Pantoprazole Sodium [Protonix] 40 mg PO BEDTIME 02/02/21 Tamsulosin [Flomax*] 0.4 mg PO DAILY 02/02/21 lisinopriL [Prinivil*] 40 mg PO DAILY tab 02/03/21 - Past Medical/Surgical History Has patient received pneumonia vaccine in the past: No Diabetic: Yes -: GERD -: Anxiety -: Hypertension -: CVA -: Depression -: IDDM -: Hyperlipidemia -: Cholecystectomy -: Hysterectomy -: Appendectomy - Family History Sister -: Cancer Notes: uterine Mother -: Hypertension Father -: Hypertension - Social History Smoking Status: Never smoker Alcohol use: No CD- Drugs: No Caffeine use: No Place of Residence: Home Review of Systems 10-point ROS is otherwise unremarkable General: Weakness Physical Examination - Vital Signs Temperature: 97.9 F Blood Pressure: 204/90 Pulse: 60 Respirations: 18 Pulse Ox (%): 96 - Physical Exam General: Oriented x3, Mild distress, Moderate distress, Obese HEENT: Atraumatic, PERRLA, Mucous membr. moist/pink, EOMI, Sclerae nonicteric Neck: Supple, 2+ carotid pulse no bruit, No LAD, Without JVD or thyroid abnormality Respiratory: Clear to auscultation bilaterally, Normal air movement Cardiovascular: Regular rate/rhythm, Normal S1 S2 Gastrointestinal: Normal bowel sounds, No tenderness Musculoskeletal: No tenderness Integumentary: No rashes Neurological: Normal gait, Normal speech, Normal strength at 5/5 x4 extr, Normal tone, Normal affect Lymphatics: No axilla or inguinal lymphadenopathy - Diagnosis (Problem(s)) (1) Anemia due to acute blood loss Current Visit: Yes Status: Acute Plan: SHE WILL STOP EXEDRIN SISTER IS AWARE. IV PROTONIX DR. TOLLIVER CONSULTED. (2) Vasovagal near syncope Current Visit: No Status: Acute (3) Hypertension Onset Date: 08/18/15 Current Visit: No Status: Chronic Plan: BP IS LOT BETTER WHEN SHE IS NOT ANXIOUS. - Disposition Disposition: ROUTINE DISCHARGE Condition: GOOD
[2021-02-03] MEDS ORDERED: ATORVASTATIN 10 MG TAB PO SCH (21:00)
[2021-02-03] MEDS ORDERED: lisinopriL 20 MG TAB PO SCH (21:00)
[2021-02-03] MEDS ORDERED: MELATONIN 3 MG TABLET PO SCH (21:00)
[2021-02-03] MEDS ORDERED: AMITRIPTYLINE 50 MG TAB PO SCH ×2 (21:00)
[2021-02-03] MEDS ORDERED: INSULIN GLARGINE 100 UNITS/ML SQ SCH (21:00)
[2021-02-03] MEDS: D5 0.45 NS 1,000 ML IV SCH (21:46)
[2021-02-04] MEDS: PANTOPRAZOLE INJ 80 MG in NA CHLORIDE 0.9% 250 ML IV SCH ×2 (02:31→09:27)
[2021-02-04] MEDS: cloNIDine HCL 0.1 MG TAB PO PRN ×2 (05:39→17:17)
[2021-02-04 06:06] LABS: Absolute Lymphocytes (CBC) 1.8 K/uL (0.7-4.9); Basophils % 0.4 % (0-1.3); Hematocrit 28.8 % (36.0-45.0); Lymphocytes % 28.4 % (15.3-44.8); MPV 7.9 fL (7.6-11.3); RBC Red Blood Cell Count 4.17 M/uL (3.86-4.86)
[2021-02-04] MEDS ORDERED: SUMATRIPTAN SUCCI 50 MG TAB PO PRN (06:39)
[2021-02-04 08:45] LABS: Absolute Lymphocytes (CBC) 1.8 K/uL (0.7-4.9); Basophils % 0.6 % (0-1.3); Hematocrit 29.5 % (36.0-45.0); Lymphocytes % 27.5 % (15.3-44.8); MPV 7.9 fL (7.6-11.3); RBC Red Blood Cell Count 4.25 M/uL (3.86-4.86)
[2021-02-04 08:56] LABS: Potassium 3.6 mmol/L (3.5-5.1)
[2021-02-04] MEDS: METFORMIN ER 500 MG TAB PO SCH (09:00)
[2021-02-04] MEDS: TAMSULOSIN 0.4 MG SR CAP PO SCH (09:00)
[2021-02-04] MEDS: FLUOXETINE 20 MG CAP PO SCH (09:00)
[2021-02-04] MEDS: GABAPENTIN 300 MG CAP PO SCH ×2 (09:00→14:00)
[2021-02-04] MEDS: NEBIVOLOL HCL 5 MG TAB PO SCH (09:23)
[2021-02-04] MEDS: lisinopriL 20 MG TAB PO SCH (09:23)
[2021-02-04] MEDS: D5 0.45 NS 1,000 ML IV SCH (09:30)
[2021-02-04] MEDS ORDERED: NA CHLORIDE 0.9% 1,000 ML ONE (11:46)
[2021-02-04] MEDS ORDERED: propofoL 200 MG/20 ML VIAL IV ONE (18:35)
--- NOTE | 2021-02-04 18:51 | ENDO RPT ---
[address], [address] EGD PROCEDURE REPORT EXAM DATE: 02/04/2021 PATIENT NAME: Skylar García MR#: [id number] BIRTHDATE: 1935 ATTENDING: Bobby Burton Dr STATUS: inpatient - 7 VIBRATING SCREEN OPERATOR: Estela STEARNS and Natali Salazar RN INDICATIONS: The patient is a 85 yr old Female here for an EGD due to anemia PROCEDURE PERFORMED: EGD with biopsy MEDICATIONS: Per Anesthesia. TOPICAL ANESTHETIC: none CONSENT: The patient understands the risks and benefits of the procedure and understands that these risks include, but are not limited to: sedation, allergic reaction, infection, perforation and/or bleeding. Alternative means of evaluation and treatment include, among others: physical exam, x-rays, and/or surgical intervention. The patient elects to proceed with this endoscopic procedure. DESCRIPTION OF PROCEDURE: During intra-op preparation period all mechanical medical equipment was checked for proper function. Hand hygiene and appropriate measures for infection prevention was taken. Procedure, possible complications, and alternatives including but not limited to the possibility of bleeding, perforation, tear, infection, sepsis, need for surgery, need for blood transfusion, and anesthesia related complications were explained to the patient. After the risks, benefits and alternatives of the procedure were thoroughly explained, Informed consent was verified, confirmed and timeout was successfully executed by the treatment team. The patient was placed in the left lateral position. The patient was anesthetized with topical anesthesia. Through the anesthetized oropharyngeal area, the scope was passed without any difficulty. The EG-[id number] ([id number]) and [id number] ([id number]) endoscope was introduced through the mouth and advanced to the second portion of the duodenum. Retroflexed views revealed no abnormalities. The gastroscope was then slowly withdrawn and removed. An erosion was found in the antrum. Multiple biopsies were obtained and sent to pathology. ADVERSE EVENTS: There were no complications. IMPRESSIONS: Erosion in the antrum, s/p gastric biopsies RECOMMENDATIONS: 1. await biopsy results 2. acid suppression therapy 3. colonoscopy (last done 20 years ago, as per patient report) REPEAT EXAM: Bobby Burton Dr eSigned: Bobby Burton Dr 02/04/2021 6:50 PM cc: Edwardo Angel CPT CODES: ICD9 CODES: PATIENT NAME: Raquel Skylar JayMeka MR#: [id number]
[2021-02-04 19:09] VITALS: BP 150/80; TEMP 97.9; O2SAT 99
--- NOTE | 2021-02-04 22:13 | P.DS ---
Admission Date: 02/02/21 Discharge Date: 02/04/21 Disposition: ROUTINE DISCHARGE Discharge Condition: GOOD Reason for Admission: DIZZY, WEAKNESS - Problems (1) Anemia due to acute blood loss Status: Acute (2) Vasovagal near syncope Status: Acute (3) Hypertension Onset Date: 08/18/15 Status: Chronic Brief History of Present Illness: MR. MCCAIN HAS DM, HTN, RECURRENT STROKES, DOES NOT WALK AND IS FOUND TO HAVE HG OF 6.6 GM TODAY. WHEN I CAME TODAY SHE WAS HAVING HEADACHES. SHE WAS VERY AGITATED. I ASKED WHAT SHE TAKES AT HOME FOR HEADACHES. SHE TAKES EXEDRIN. THIS IN ADDITION TO PLAVIX GAVE RISE TO HER ANEMIA. SHE DID NOT WANT TO STAY FOR BLOOD TRANSFUSION. I ADVISED AND SHE STAYED. SHE REFUSED TO GET EGD DONE BUT LATER ABOUT 8 PM SHE SAYS SHE WILL DO EGD. DR. KIM CAME AND LEFT. I GAVE HER IMITREX AND IT WORKED GREAT FOR MIGRAINES. Hospital Course: SWAPNA IS PATIENT WITH MANY STROKES, HTN AND DM, DOES NOT WALK ANY LONGER. SHE NEVER TOLD ME THAT SHE WAS TAKING EXEDRIN DAILY FOR HEADACHES. SHE COMES IN WITH ANEMIA. I GAVE HER BLOOD TRANSFUSION OF 3 UNITS HG WAS DOWN TO 6.6 GM SHE INITIALLY REFUSED THAT BUT WHEN I TOOK CARE OF MIGRAINES SHE ALSO AGREED TO EGD AND WAS FOUND TO HAVE EROSIONS. SHE IS STABLE TO DISCHARGE. SHE KNOWS NOT TO TAKE ANY NSAIDS. Vital Signs/Physical Exam: Temp Pulse Resp BP Pulse Ox 97.9 F 62 16 150/80 H 95 02/04/21 18:57 02/04/21 19:07 02/04/21 19:07 02/04/21 19:07 02/04/21 16:00 Laboratory Data at Discharge: WBC 6.40 K/uL (4.3-10.9) 02/04/21 08:28 Hgb 9.3 g/dL (12.0-15.0) L 02/04/21 08:28 Hct 29.5 % (36.0-45.0) L 02/04/21 08:28 Plt Count 261 K/uL (152-406) 02/04/21 08:28 PT 12.7 SECONDS (9.5-12.5) H 02/02/21 13:16 INR 1.10 02/02/21 13:16 APTT 45.7 SECONDS (24.3-36.9) H 02/02/21 13:16 Sodium 140 mmol/L (136-145) 02/04/21 08:28 Potassium 3.6 mmol/L (3.5-5.1) 02/04/21 08:28 BUN 11 mg/dL (7-18) 02/04/21 08:28 Creatinine 0.80 mg/dL (0.55-1.3) 02/04/21 08:28 Glucose 146 mg/dL (74-106) H 02/04/21 08:28 Magnesium 2.1 mg/dL (1.8-2.4) 02/02/21 13:15 Total Bilirubin 0.2 mg/dL (0.2-1.0) 02/02/21 13:15 AST 8 U/L (15-37) L 02/02/21 13:15 ALT 15 U/L (12-78) 02/02/21 13:15 Alkaline Phosphatase 84 U/L (45-117) 02/02/21 13:15 Lipase 44 U/L (73-393) L 02/02/21 13:15 Home Medications: Amitriptyline HCl 100 mg PO BEDTIME 05/03/19 Clopidogrel Bisulfate [Plavix*] 75 mg PO DAILY 05/03/19 Fluoxetine HCl [Prozac] 20 mg PO DAILY 05/03/19 Gabapentin 300 mg PO TID 05/03/19 Insulin Glargine,Hum.rec.anlog [Lantus Solostar] 20 units SQ BEDTIME 05/03/19 Lisinopril [Zestril] 40 mg PO BEDTIME 05/03/19 Melatonin [Melatonin*] 3 mg PO BEDTIME 05/03/19 Metformin ER [Glucophage ER*] 500 mg PO BID 05/03/19 Simvastatin 20 mg PO BEDTIME 05/03/19 cloNIDine HCL [Catapres] 0.1 mg PO TIDP PRN 05/03/19 Nebivolol HCl [Bystolic*] 10 mg PO DAILY 02/02/21 Pantoprazole Sodium [Protonix] 40 mg PO BEDTIME 02/02/21 Tamsulosin [Flomax*] 0.4 mg PO DAILY 02/02/21 lisinopriL [Prinivil*] 40 mg PO DAILY tab 02/03/21 Followup: Edwardo Angel MD [ACTIVE - CAN ADMIT] - (Follow up in 10 days)
== END 2021-02-04 20:39 | disposition home or self-care (01) | DRG 378 ==
LOC: ER 11:30 → ERHOLD 15:13 → 4TH 19:37
PROVIDERS: ADMIT Internal Medicine; ATTEND Internal Medicine
PROC: 30233N1 Transfusion of Nonautologous Red Blood Cells into Peripheral Vein, Percutaneous Approach (ICD-10-PCS; 2021-02-02)
PROC: 0DB78ZX Excision of Stomach, Pylorus, Via Natural or Artificial Opening Endoscopic, Diagnostic (ICD-10-PCS; principal; 2021-02-04 12:00)
DX: K25.4 Chronic or unspecified gastric ulcer with hemorrhage (principal); D62 Acute posthemorrhagic anemia; E11.9 Type 2 diabetes mellitus without complications; I10 Essential (primary) hypertension; K21.9 Gastro-esophageal reflux disease without esophagitis; G43.909 Migraine, unspecified, not intractable, without status migrainosus; E78.5 Hyperlipidemia, unspecified; R55 Syncope and collapse; Z86.73 Personal history of transient ischemic attack (TIA), and cerebral infarction without residual deficits; Z90.49 Acquired absence of other specified parts of digestive tract; Z90.710 Acquired absence of both cervix and uterus; Z88.5 Allergy status to narcotic agent; Z79.4 Long term (current) use of insulin; Z79.02 Long term (current) use of antithrombotics/antiplatelets; Z79.899 Other long term (current) drug therapy; Z20.822 Contact with and (suspected) exposure to COVID-19
CPT/HCPCS: 36415; 70450; 71045; 80048; 80076; 81003; 81015; 82947; 83605; 83690; 83735; 84484; 85018; 85025; 85610; 85730; 86850; 86900; 86901; 87040; 87077; 87086; 87088; 87186; 88305; 88312; 93005; 96365; 96366; 99285; C9113; J1815; J2704; J7030; J7050; J7799; P9016; U0003

== ENCOUNTER → 2021-02-10 | Emergency (ER) | payer OTHER, MEDICARE ==
[~2021-02-10] MED LIST: NA CHLORIDE 0.9% 500 ML ONE
--- OUTSIDE RECORDS SUMMARY | 2021-02-10 14:23 | XMS REPORT | Continuity of Care Document ---
:1935 Author Organization [facility] t Address [address] [place] [address] Care Team Providers Name Role Phone Pcp MD Primary Care Physician Unavailable Dudley GABRIEL Attending Clinician Donovan Mcintyre MD Attending Clinician Alberto GABRIEL Attending Clinician Donovan MCINTYRE Attending Clinician Unavailable ALBERTO Admitting Clinician Unavailable Payers Payer Name Policy Type Policy Effective Date Expiration Date Sour ce Number MEDICAREMEDICARE A [id number] [address] [facility] [id number]/09/1998-P 00:00:00 - Medical resentMedicare Center [facility] [id number] [facility] SUPPLEMENT/INDIVIDUALA 00:00:00 - Medical [facility] /09/2019-PresentMedigap Problems Condition Condition Condition Status Onset [...] Natural father High blood pressure C [facility] Social History Social Habit Start Date Stop Date Quantity Comments Source History SDOH [facility] - Alcohol Std Drinks [facility]ica [facility] Center History SDOH [facility] - Alcohol Binge Medical Nataliia ter Sex Assigned At [facility] kes [facility] Tobacco use and 2020-03-26 2020-03-26 Never used [facility] kes - exposure 00:00:00 00:00:00 [facility] Alcohol intake 2020-03-26 2020-03-[address] [facility] [address] Haley es - 00:00:00 00:00:00 non-drinker of Medical Ce nter alcohol (finding) History [facility] 2020-03-26 2020-03-[address] [facility] - Alcohol Frequency 00:00:00 00:00:00 [facility] Smoking Status Start Date Stop Date Source [facility] Medications Ordered Filled Start Stop Current Ordering Indication Dosage Frequency Signature Comments Components Source Medication Medication Date Date Medication? Clinician (SIG) Name Name insulin Yes 15U QD Inject 15 [facility] glargine 7[facility] - (LANTUS 00:00: subcutaneo Medi joyce SOLOSTAR 00 [facility] U-100 nightly. INSULIN) 100 unit/mL (3 [...] 20 MG 00:00: daily. Medical capsule 00 [place] fLUoxetine Yes 20mg QD Take [address] (PROZAC) 20 -23 by mouth Luke s - MG capsule 00:00: daily. Medic al 00 [place] melatonin 3 Yes 3mg QD Take [address] mg Tab 05-03 by mouth [facility] - tablet 00:00: nightly. Medical 00 [place] gabapentin 2020- No 300{tbl Q.[id number] Take [address] enacarbil 05-03 } [id number] tablets by [facility] - 300 mg TbER 00:00: 00:00 3D mouth 3 Me dical 00 :00 (three) Center times daily. amitriptyli 2020- No 100{tbl QD Take [address] (ELAVIL) 05-03 } tablets by L ukes - 100 MG 00:00: 00:00 mouth Medical tablet 00 :00 nightly. [place] lisinopriL 2014-09 Yes 40mg Take [address] (PRINIVIL,Z 2-21 by mouth Luke s - ESTRIL) 40 00:00: Daily Medica l MG tablet 00 (1800). [place] Vital Signs Vital Name Observation Time Observation Value Comments Source Diastolic blood 2020-03-29 11:13:00 98 mm[Hg] [facility] S t [facility] Heart rate 2020-03-29 11:13:00 94 /min [facility] Body temperature 2020-03-29 11:13:00 36.28 Sindhu [facility] Respiratory rate 2020-03-29 11:13:00 22 /min [facility] Oxygen saturation in 2020-03-29 11:13:00 95 /min [facility] Arterial blood by Medical Ce nter Pulse oximetry Systolic blood 2020-03-29 11:13:00 152 mm[Hg] [facility] Body weight 2020-03-29 07:13:00 76.658 kg [facility] Procedures Procedure Date / Time Performed Performing Clinician Bertrand metcalf RHYTHM STRIP - SCAN 2020-04-02 16:10:13 Provider, Default [facility] Scanning [facility] RHYTHM STRIP - SCAN 2020-04-01 12:01:54 Provider, Default [facility] POCT-GLUCOSE METER 2020-03-29 11:19:00 Alberto [facility] POCT-GLUCOSE METER 2020-03-29 07:25:00 Alberto [facility] CBC W/PLT COUNT & AUTO 2020-03-29 05:51:00 Alberto [facility] POCT-GLUCOSE METER 2020-03-28 22:02:00 Alberto [facility] POCT-GLUCOSE METER 2020-03-28 16:32:00 Alberto [facility] POCT-GLUCOSE METER 2020-03-28 12:00:00 Alberto [facility] POCT-GLUCOSE METER 2020-03-28 08:06:00 Alberto [facility] CBC W/PLT COUNT & AUTO 2020-03-28 03:47:00 Alberto [facility] 2D ECHO W/ DOPPLER 2020-03-27 22:17:53 Janneth Mancia [facility] (CW/PW/COLOR) [facility] POCT-GLUCOSE METER 2020-03-27 16:00:00 Alberto [facility] ECG 12-LEAD 2020-03-27 14:30:01 Maegan Buckner [facility] POCT-GLUCOSE METER 2020-03-27 11:47:00 Alberto [facility] POCT-GLUCOSE METER 2020-03-27 07:34:00 [facility] CBC W/PLT COUNT & AUTO 2020-03-27 06:32:00 [facility] BASIC METABOLIC PANEL 2020-03-27 05:02:[address] HEPATIC FUNCTION PANEL 2020-03-27 05:02:00 Alberto [facility] MAGNESIUM 2020-03-27 05:02:00 Alberto [facility] POCT-GLUCOSE METER 2020-03-26 21:36:[address] [facility] [address] BRAIN WITHOUT IV 2020-03-26 18:04:00 [facility]SE [facility] 2020-03-26 17:18:00 Alberto [facility] POCT-GLUCOSE METER 2020-03-26 11:42:00 Alberto [facility] POCT-GLUCOSE METER 2020-03-26 07:00:00 Alberto [facility] CBC W/PLT COUNT & AUTO 2020-03-26 04:45:00 Alberto [facility] BASIC METABOLIC PANEL 2020-03-26 04:45:00 [facility] HEPATIC FUNCTION PANEL 2020-03-26 04:45:00 lAberto [facility] MAGNESIUM 2020-03-26 04:45:00 Alberto [facility] POCT-GLUCOSE METER 2020-03-25 21:01:00 Alberto [facility] POCT-GLUCOSE METER 2020-03-25 17:31:00 Alberto [facility] POCT-GLUCOSE METER 2020-03-25 11:09:00 Alberto [facility] MAGNESIUM 2020-03-25 09:44:00 Alberto [facility] PHOSPHORUS 2020-03-25 09:44:00 Alberto [facility] TSH/FREE T4 IF INDICATED 2020-03-25 09:44:00 Janneth Mancia [facility] HEMOGLOBIN A1C 2020-03-25 09:44:[address] [facility] TROPONIN I 2020-03-25 09:44:[address] [facility] BASIC METABOLIC PANEL 2020-03-25 09:44:[address] HEPATIC FUNCTION PANEL 2020-03-25 09:44:00 Alberto [facility] POCT-GLUCOSE METER 2020-03-25 08:59:00 Alberto [facility] C. DIFFICILE GDH TOXIN 2020-03-25 05:47:[address] [facility] STOOL PATH CHARGE 2020-03-25 05:46:00 Janneth Mancia [facility] STOOL CULTURE + SHIGA 2020-03-25 05:46:00 Janneth Mancia [facility] TOXIN [facility] SHIGA TOXIN SCREEN 2020-03-25 05:46:00 [facility] 2020-03-25 05:45:00 Janneth Mancia [facility] s - MICROSCOPIC IF INDICATED [facility] URINALYSIS MICROSCOPIC 2020-03-25 05:45:[address] [facility] POCT-GLUCOSE METER 2020-03-25 04:57:00 Derik Mcintyre [facility] XR CHEST 1 VIEW 2020-03-25 04:22:00 Janneth Mancia [facility] s - PORTABLE/BEDSIDE [facility] SARS-COV2/RT-PCR ([facility] & 2020-03-25 02:42:00 Janneth Mancia I [facility] - REF LABS) [facility] Plan of Care Planned Activity Planned Date Details Comments Source Future Scheduled 2021-05-12 INFLUENZA VACCINE [facility] - Test 00:00:00 (Season Ended) [code = [facility] INFLUENZA VACCINE (Season Ended)] Future Scheduled 2020-09-25 Hemoglobin A1c [facility] kes - Test 00:00:[address] [facility] (procedure) [code = 79548448] Future Scheduled 2020-09-11 DEPRESSION [facility]CREENING [facility] 00:00:00 (12+) [code = Medical Center DEPRESSION SCREENING (12+)] Future Scheduled 2002 PNEUMOCOCCAL 65+ YRS [facility] - Test 00:00:00 (1 of 1 - Medical Center [id number] PCV13) [code = PNEUMOCOCCAL 65+ YRS (1 of 1 - [id number] PCV13)] Future Scheduled 1999-11-11 MEDICARE ANNUAL CHI [...] 00:00:00 examination Medical Center (regime/therapy) [code = 754428623] Future Scheduled [address]rine screening for [facility] - Test 00:00:00 protein (procedure) Medical Center [code = 719158131] Results Test Description Test Time Test Comments Results Result [facility] e Comments ECG 12 lead 2020-03-11 Interface, External Ris [facility] In - 03/29/2020 5:30 [place]aley es - 17:30:03 PM CDTVentricular Rate Me dical 89 BPMAtrial Rate 89 Cent er BPMP-R Interval 212 msQRS Duration 140 msQ-T Interval 442 msQTC Calculation(Bazett) 537 msP [place] 73 degreesR [place] 23 degreesT [place] 17 degreesSinus rhythm with 1st degree A-V blockRight bundle branch blockProlonged QTAbnormal ECGNo previous ECGs availableConfirmed by MD AL, SIN ([id number]) on 03/29/2020 5:30:01 PM POC-Glucose meter 2020-03-29 11:32:00 Test Item Value Reference Range Interpretation Comme nts POC-Glucose Meter (test code = 235 mg/dL 70-110 H : [facility] [address] [facility]) [facility] [employer] [facility], 770 30: [employer]/Techni chika ID = [id number] for QUEEN NATARAJAN Lab Interpretation (test code = Abnormal 90976-2) [facility] [id number] 11:32:00 Test Item Value Reference Range Interpretation Comments POC-GLUCOSE METER 235 mg/dL 70-110 H : TESTED A T [facility] [address] (BEAKER) (test code = DINA Ortega [facility], 1538) [address]: [employer]/Techni chika ID = [id number] for QUEEN LASSITER POCT-GLUCOSE [id number] 07:37:00 Test Item Value Reference Range Interpretation Comments POC-GLUCOSE METER 190 mg/dL 70-110 H : TESTED A T [facility] [address] (BEAKER) (test code = [facility], 1538) [address]: [employer]/Techni chika ID = [id number] for QUEEN LASSITER CBC with platelet count + automated [id number] 06:10:00 Test Item Value Reference Range Interpretation Comments WBC (test code = 6690-2) 6.6 See_Comment [A utomated message] The system [employer] generated this result transmitted ref erence range: 3.5 - 10 .5 K/L. The refe rence range was not u sed to interpret this result as normal/abnor mal. RBC (test code = 789-8) 4.46 See_Comment [Au tomated message] The system [employer] generated this result transmitted ref erence range: 3.93 - 5 .22 M/L. The refe rence range was not u sed to interpret this result as normal/abnor mal. MCHC (test code = 786-4) 32.0 See_Comment L [A utomated message] The system [employer] generated this result transmitted ref erence range: [...] See_Comment [Aut omated message] 777-3) The system [employer] generated this result transmitted ref erence range: 150 - 45 0 K/CU MM. The referen ce range was not u sed to interpret this result as normal/abnor mal. MPV (test code = 9.3 fL 9.4-12.3 L 56616-7) nRBC (test code = 413) 0 See_Comment [Aut omated message] The system [employer] generated this result transmitted ref erence range: [...] See_Comment [Aut omated message] 670) The system [employer] generated this result transmitted ref erence range: 1.56 - 6 .13 K/L. The refe rence range was not u sed to interpret this result as normal/abnor mal. # Lymphs (test code = 2.27 See_Comment [Auto mated message] 414) The system [employer] generated this result transmitted ref erence range: 1.18 - 3 .74 K/L. The refe rence range was not u sed to interpret this result as normal/abnor mal. # Monos (test code = 0.75 See_Comment H [Autom ated message] 415) The system [employer] generated this result transmitted ref erence range: 0.24 - 0 .36 K/L. The refe rence range was not u sed to interpret this result as normal/abnor mal. # Eos (test code = 416) 0.14 See_Comment [Au tomated message] The system [employer] generated this result transmitted ref erence range: 0.04 - 0 .36 K/L. The refe rence range was not u sed to interpret this result as normal/abnor mal. # Baso (test code = 417) 0.03 See_Comment [A utomated message] The system [employer] generated this result transmitted ref erence range: 0.01 - 0 .08 K/L. The refe rence range was not u sed to interpret this result as normal/abnor mal. Immature 1 % 0-1 Granulocytes-Relative (test code = 2801) Lab Interpretation (test Abnormal code = 96792-1) [facility] W/PLT COUNT & AUTO [id number] 06:10:00 Test Item Value Reference Range Interpretation [...] PERCENT (BEAKER) (test code = 2801) POCT-GLUCOSE [id number] 22:16:00 Test Item Value Reference Range Interpretation Comments POC-GLUCOSE METER 275 mg/dL 70-110 H : TESTED A T [facility] 67[address] (BEAKER) (test code = [facility], 153) [address]: [employer]/Techni chika ID = [id number] for YRIS HENAO POCT-GLUCOSE [id number] 16:44:00 Test Item Value Reference Range Interpretation Comments POC-GLUCOSE METER 200 mg/dL 70-110 H : TESTED A T [facility] 67[address] (BEAKER) (test code = [facility], 1538) [address]: [employer]/Techni chika ID = [id number] for QUEEN LASSITER POCT-GLUCOSE [id number] 12:11:00 Test Item Value Reference Range Interpretation Comments POC-GLUCOSE METER 180 mg/dL 70-110 H : TESTED A T [facility] 67[address] (BEAKER) (test code = [facility], 1538) [address]: [employer]/Techni chika ID = [id number] for NW AJIAKU, SHAYY 2D Echo W/Doppler(CW/PW/Color)2020-03-28 09:14:47Ejection FractionSLEH ECHO HEARTLAB MKCKESSON CPACSInterface, External Ris In - 03/28/2020 9:15 AM C DTTransthoracic Echocardiography Report (TTE) Demographics Patient Name SWAPNA MCCAIN Date ofStudy 03/27/2020 JAMES Gender Female Visit Number [id number] Race Unknown Room Number 935 Number Date of 1935 Referring Janneth Bean Physician MD Gavino Age 84 year(s) Developer Relations Manager Lorenzo Johnson Lowerator Operator Jay Tinsley Interpreting Physician HARVEY Crawford Procedure [...] CO: 4.92 l/min LVOT CI: 2.84 l/min/m^2[facility] [id number] 08:17:00 Test Item Value Reference Range Interpretation Comments POC-GLUCOSE METER 158 mg/dL 70-110 H : TESTED A T [facility] 6720 ([facility]) (test code = [place], 1538) [address]: [employer]/Techni chika ID = [id number] for NW SHAYY ALEXANDER CBC W/PLT COUNT & AUTO [id number] 04:14:00 Test Item Value Reference Range Interpretation [...] PERCENT (BEAKER) (test code = 2801) POCT-GLUCOSE [id number] 16:12:00 Test Item Value Reference Range Interpretation Comments POC-GLUCOSE METER 233 mg/dL 70-110 H : TESTED A T [facility] 67[address] (BEAKER) (test code = [facility], 153) [address]: [employer]/Techni chika ID = [id number] for NW AJIAKU, SHAYY POCT-GLUCOSE [id number] 12:02:00 Test Item Value Reference Range Interpretation Comments POC-GLUCOSE METER 190 mg/dL 70-110 H : TESTED A T [facility] 67[address] (BEAKER) (test code = [facility], 1538) [address]: [employer]/Techni chika ID = [id number] for NW AJIAKU, SHAYY Stool culture + Shiga [id number] 09:19:00 Test Item Value Reference Range Interpretation Comments Result (test code = No Salmonella, Shigella or 6463-4) Campylobacter isolated [facility] CULTURE + SHIGA [id number] 09:19:00 Test Item Value Reference Range Interpretation Comments CULTURE (BEAKER) No Salmonella, Shigella (test code = 1095) or Campylobacter isolated POCT-GLUCOSE [id number] 07:46:00 Test Item Value Reference Range Interpretation Comments POC-GLUCOSE METER 174 mg/dL 70-110 H : TESTED A T [facility] 6720 (BEAKER) (test code = [place], 1538) [address]: [employer]/Techni chika ID = [id number] for NW SHAYY ALEXANDER CBC W/PLT COUNT & AUTO [id number] 06:53:00 Test Item Value Reference Range Interpretation [...] (BEAKER) (test code = 2801) Basic Metabolic [id number] 06:20:00 Test Item Value Reference Range Interpretation [...] Calcium (test code = 9.3 mg/dL 8.4-10.2 98003-4) EGFR (test code = 68 mL/min/1.73 [place] [address]-8) NOT ACCURATE CREATININE CLEARANCE IN PREDICTING GLOMERULAR FILTRATION RATE . ESTIMATED GFR I S NOT APPLICABLE FOR DIALYSIS PATIENTS. WINDY (test code = WINDY) [employer] ID - LATA Sun Lab Interpretation Abnormal (test code = 05313-7) [facility] [id number] 06:20:00 Test Item Value Reference Range Interpretation Comments Protein, Total (test 7.3 See_Comment Specime n slightly code = 2885-2) hemolyzed [Automated message] The system which generated this result transmit anamaria reference range : 6.0 - 8.3 gm/dL . The reference range was not u sed to interpret th is result as normal/abnormal . Albumin (test code = 4.1 g/dL 3.5-5 Specime n slightly 08422-3) hemolyzed Total Bilirubin (test 0.3 mg/dL 0.2-1.2 [...] 1742-6) hemolyzed WINDY (test code = WINDY) [employer] ID - LATA W Lab Interpretation Normal (test code = 76059-6) [facility] 06:20:00 Test Item Value Reference Range Interpretation Comments Magnesium (test code = 1.7 mg/dL 1.6-2.6 Speci men 28283-8) slightly hemolyzed WINDY (test code = WINDY) [employer] ID - LATA W Lab Interpretation Normal (test code = 08094-5) [facility] 06:20:00 Test Item Value Reference Range Interpretation Comments MAGNESIUM (BEAKER) 1.7 mg/dL 1.6-2.6 Specimen slightly (test code = 627) hemolyzed [employer] ID - LATA WBASIC METABOLIC [id number] 06:20:00 Test Item Value Reference Range Interpretation [...] S NOT APPLICABLE FOR DIALYSIS PATIEN TS. [employer] ID Suman GIUDO WHEPATIC FUNCTION [id number] 06:20:00 Test Item Value Reference Range Interpretation [...] Specimen slightly (test code = 347) hemolyzed [employer] ID Suman GUIDO WPOCT-GLUCOSE [id number] 21:46:00 Test Item Value Reference Range Interpretation Comments POC-GLUCOSE METER 181 mg/dL 70-110 H : TESTED A T [facility] 6720 (BEAKER) (test code = [place], 1538) [address]: Fisher Sponge Hooking/Techni chika ID = [id number] for JEREMY GUPTA CT, BRAIN, WITHOUT [id number] 18:11:00FINAL REPORT CT, BRAIN, WITHOUT CONTRAST INDICATION: [...] Verified Date/Time: 03/26/202018:11:57 CT brain without IV [id number] 18:11:00Interface, External Ris In - 03/26/2020 6:14 [...] Signed: Wyatt Burch Verified Date/Time: 03/26/2020 18:11:57 [facility] [id number] 17:31:00 Test Item Value Reference Range Interpretation Comments POC-GLUCOSE METER 209 mg/dL 70-110 H : Notified RN/MD: (BEAKER) (test code = TESTED AT [facility] 67[address] 1538) [facility], [address]: [employer] Hook[employer]/Techni chika ID = [id number] for MEERA LEMOS Shiga Toxin [id number] 15:19:00 Test Item Value Reference Range Interpretation Comments Shiga toxin 1 (test code = Not detected Not detected 51338-6) Shiga toxin 2 (test code = Not detected Not detected 21187-1) Lab Interpretation (test code = Normal 41975-1) [facility] [id number] 15:19:00 Test Item Value Reference Range Interpretation Comments SHIGA TOXIN 1 (BEAKER) (test Not detected Not detected code = 2177) SHIGA TOXIN 2 (BEAKER) (test Not detected Not detected code = 2179) POCT-GLUCOSE [id number] 11:53:00 Test Item Value Reference Range Interpretation Comments POC-GLUCOSE METER 159 mg/dL 70-110 H : TESTED A T [facility] 6720 (BEAKER) (test code = DINA Ortega [facility] [employer] [facility], 1538) [address]: [employer]/Techni chika ID = [id number] for SANDRA HOLLIS STOOL PATH [id number] 11:36:00 Test Item Value Reference Range Interpretation Comments Pathogen exam charged (test code = Done 2381) [facility] [id number] 11:36:00 Test Item Value Reference Range Interpretation Comments PATHOGEN EXAM CHARGED (BEAKER) (test Done code = 2381) POCT-GLUCOSE [id number] 07:11:00 Test Item Value Reference Range Interpretation Comments POC-GLUCOSE METER 146 mg/dL 70-110 H : TESTED A T [facility] [address] (BEAKER) (test code = [place], 1538) [address]: [employer] Hooking/Techni chika ID = [id number] for MILY GROVE [id number] 06:04:00 Test Item Value Reference Range Interpretation Comments MAGNESIUM (BEAKER) (test code = 1.9 mg/dL 1.6-2.6 627) [employer] ID - WAGNER LBASIC METABOLIC [id number] 06:04:00 Test Item Value Reference Range Interpretation [...] S NOT APPLICABLE FOR DIALYSIS PATIEN TS. [employer] ID - PIAYA LHEPATIC FUNCTION [id number] 06:04:00 Test Item Value Reference Range Interpretation [...] (test code = 15 U/L 6-55 347) [employer] ID - WAGNER LCBC W/PLT COUNT & AUTO [id number] 05:20:00 Test Item Value Reference Range Interpretation [...] PERCENT (BEAKER) (test code = 2801) POCT-GLUCOSE [id number] 21:12:00 Test Item Value Reference Range Interpretation Comments POC-GLUCOSE METER 154 mg/dL 70-110 H : TESTED A T [facility] [address] (BEAKER) (test code = [facility] [employer] [facility] [employer] [facility], 1538) [address]: [employer]/Techni chika ID = [id number] for JEREMY GUPTA POCT-GLUCOSE [id number] 17:43:00 Test Item Value Reference Range Interpretation Comments POC-GLUCOSE METER 152 mg/dL 70-110 H : TESTED A T [facility] 6720 (BEAKER) (test code = [facility] [employer] [facility], 1538) [address]: [employer] Hooking/Techni chika ID = [id number] for PANCHO [place]YS SARS-CoV2/RT-PCR (Asymptomatic ONLY)2020-03-25 13:40:00 Test Item Value Reference Range Interpretation Comments SARS-COV2/RT-PCR Negative Not Detected, (test code = Negative 18816-6) SARS-COV-2 [facility] PERFORMING LAB (test code = 24996-4) WINDY (test code = Negative result for [...] of the Act. Fact Sheet for Healthcare Providers:https://www.[employer]/sites/default/f naomy/product/documents/F act_Sheet_HC_Providers_L gtq_ZIUG-SvE-4.pdf Fact Sheet for Healthcare Patients:https://www.[employer]/sites/default/fi les/product/documents/Fa ct_Sheet_Patients_Lyra_S ARS-CoV-2.pdf Performing Laboratory:[place] [facility] [facility]suzi Hael.[place], [place] [address] [place], [place] [address]ARS-COV2/RT-PCR ([facility])2020-03-25 13:40:00 Test Item Value Reference Range Interpretation Comments SARS-COV2/RT-PCR (test code = Negative Not Detected, Negative 1532184) SARS-COV-2 PERFORMING LAB [facility] (test code = 5427041) Negative result for this test determines that [...] 564(g) of the Act.Fact Sheet for Healthcare Providers:https://www.[employer]/sites/default/files/product/documents/Fact_Shee h_XJ_Trovjfagl_Fqnt_KGJY-FsO-1.pdfFact Sheet for Healthcare Patients:https://www.[employer]/sites/default/files/product/ documents/Vaiv_Ysmlv_Yyatrjot_Azbr_VXPZ-TsM-6.pdfPerforming Laboratory:[place] [facility], [place] [address]HLXO-TLGFCWX METER 2020-03-25 11:24:00 Test Item Value Reference Range Interpretation Comments POC-GLUCOSE METER 165 mg/dL 70-110 H : TESTED A T [facility] 6720 (CALI) (test code = DINA Ortega [facility], 1538) [address]: [employer]/Techni chika ID = [id number] for SANDRA HOLLIS Hemoglobin [id number] 10:59:00 Test Item Value Reference Range Interpretation Comments Hemoglobin A1C (test code = 4548-4) 6.9 % 4.3-6.1 H Lab Interpretation (test code = Abnormal 55488-0) [facility]/Free T4 If [id number] 10:59:00 Test Item Value Reference Range Interpretation Comments TSH (test code = 0.622 See_Comment [Automated 36490-6) message] The system which generated this result transmit anamaria reference range : 0.350 - 4.940 uIU/mL. The reference range was not used to interpret this result as normal/abnormal . WINDY (test code = WINDY) [employer] ID - SHERINEAYA L Lab Interpretation Normal (test code = 22595-5) [facility] T[facility] [id number] 10:59:00 Test Item Value Reference Range Interpretation Comments THYROID STIMULATING HORMONE 0.622 uIU/mL 0.350-4.940 (BEAKER) (test code = 772) [employer] ID - SHERINEAYA LHEMOGLOBIN [id number] 10:59:00 Test Item Value Reference Range Interpretation Comments HEMOGLOBIN A1C (BEAKER) (test code = 6.9 % 4.3-6.1 H 368) Troponin [id number] 10:50:00 Test Item Value Reference Range Interpretation Comments Troponin I (test code = 0.02 ng/mL 0-0.03 39075-2) WINDY (test code = WINDY) Troponin I [...] L Lab Interpretation (test Normal code = 05218-1) [facility] [id number] 10:50:00 Test Item Value Reference Range Interpretation [...] failure, acidosis, acute neurological disease, and persistent tachyarrhythmia.[employer] ID Suman EDWARD LBASIC METABOLIC [id number] 10:42:00 Test Item Value Reference Range Interpretation [...] S NOT APPLICABLE FOR DIALYSIS PATIEN TS. [employer] ID Suman EDWARD LHEPATIC FUNCTION [id number] 10:42:00 Test Item Value Reference Range Interpretation [...] (test code = 10 U/L 6-55 347) [employer] ID - WAGNER [id number] 10:41:00 Test Item Value Reference Range Interpretation Comments Phosphorus (test code = 3.2 mg/dL 2.3-4.7 2777-1) WINDY (test code = WINDY) [employer] ID - WAGNER L Lab Interpretation (test Normal code = 77609-2) [facility]OS[facility]US2020-[facility]-15 10:41:00 Test Item Value Reference Range Interpretation Comments PHOSPHORUS (BEAKER) (test code = 3.2 mg/dL 2.3-4.7 604) [employer] ID - WAGNER [id number] 10:41:00 Test Item Value Reference Range Interpretation Comments MAGNESIUM (BEAKER) (test code = 2.0 mg/dL 1.6-2.6 627) [employer] ID - WAGNER LPOCT-GLUCOSE [id number] 09:10:00 Test Item Value Reference Range Interpretation Comments POC-GLUCOSE METER 116 mg/dL 70-110 H : TESTED A T [facility] 6720 (BEAKER) (test code = DINA Jordan [employer], 1538) [address]644: [employer]/Techni chika ID = [id number] for LANCE TRACEY RAD, CHEST, 1 VIEW, NON [id number] 07:49:00Reason for exam:->chest painShould this be performed at the bedside?->YesFINAL REPORT CLINICAL HISTORY: chest pain TECHNIQUE: 1 view of the chest. COM PARISON: None IMPRESSION: There are linear bandlike opacities in the bilateral mid and lower lungs. There are no significant effusions. The cardiomediastinal silhouette is magnified by technique. Signed: Keturah Mensah MDReport Verified Date/Time: 03/25/2020 07:49:59 Reading Location: [facility] Radiology Reading Room XR chest 1 view portable / [id number] 07:49:00Interface, External Ris In - 03/25/2020 7:52 AM CDTFINAL REPORT CLINICAL HISTORY: chest pain TECHNIQUE: 1 view of the chest. COMPARISON: None IMPRESSION: There are linear bandlike opacities in the bilateral mid and lower lungs. There are no significant effusions. The cardiomediastinal silhouette is magnified by technique. Signed: Keturah Mensah MDReport Verified Date/Time: 07:49:59 Reading [facility] Center[facility]icile GDH [id number] 06:54:00 Test Item Value Reference Range Interpretation Comments C. Difficle Toxin Negative Negative (test code = 6064499345) C. Difficile GDH Negative Negative No indicati on of Antigen (test code = Clostri dium 5760139489) difficile infection and n o colonization. Discontinue enteric isolati on and therapy. WINDY (test code = Testing performed WINDY) by Alere Rapid Cassette Assay. For GDH, published sensitivity of the assay is 98.7% compared to cytotoxicity testing. For Toxin AB, published sensitivity is 87.8% and specificity 99.4% compared to cytotoxicity testing.Verificati on of kit performance was done by the [facility] Microbiology Lab prior to clinical use. Lab Interpretation Normal (test code = 30995-4) [facility] Center[facility]. DIFFICILE GDH [id number] 06:54:00 Test Item Value Reference Range Interpretation Comments CDT TOXIN (test code Negative Negative = 7669224464) CDT GDH ANTIGEN (test Negative Negative No ind ication of code = 8861673711) Clostridi um difficile infection and n o colonization. Discontinue ent perez isolation and t herapy. Testing performed by Ale[employer] Rapid Cassette Assay. For GDH, published sensitivity of the assay is 98.7% compared to cytotoxicity testing. For Toxin AB, published sensitivity is 87.8% and specificity 99.4% compared to cytotoxicity testing.Verification of kit performance was done by the [facility] Microbiology Lab prior to clinical use.Urinalysis with Microscopic If [id number] 06:35:00 Test Item Value Reference Range Interpretation Comments Color, UA (test code = Yellow 5778-6) Clarity, UA (test code = Clear 5767-9) Specific [place], UA (test 1.033 1.001-1.035 code = 5811-5) pH, UA (test code = 5.5 5.0-8.0 5803-2) Protein, UA (test code = 10 mg/dL Negative A 86779-6) Glucose, UA (test code = Negative Negative 365) Ketones, UA (test code = Negative Negative 2514-8) Bilirubin, UA (test code = Negative Negative 28612-0) Blood, UA (test code = Negative Negative 31184-1) Nitrite, UA (test code = Negative Negative 5802-4) Leukocytes, UA (test code Large Negative A = 5799-2) Urobilinogen, UA (test 0.2 mg/dL 0.2-1 code = 79584-7) Specimen Source (test code = 2795) WINDY (test code = WINDY) [employer] ID - [auto][employer] ID - tech Lab Interpretation (test Abnormal code = 71676-7) [facility] Center[facility]inalysis Microscopic [id number] 06:35:00 Test Item Value Reference Range Interpretation Comments RBC, UA (test 3 See_Comment [Automated me ssage] code = 19392-2) The system [facility] generated this result transmitted ref erence range: /HPF. Th e reference range was not used to int erpret this result as normal/abnormal . WBC, UA (test 11 See_Comment [Automated me ssage] code = 5821-4) The system [facility] generated this result transmitted ref erence range: /HPF. Th e reference range was not used to int erpret this result as normal/abnormal . Bacteria, UA Rare (test code = 90337-9) Squam Epithel, 1 See_Comment [Automated m essage] UA (test code = The system [facility] 80264-6) generated this result transmitted ref erence range: /HPF. Th e reference range was not used to int erpret this result as normal/abnormal . WINDY (test code [employer] ID - tech = WINDY) [facility] WITH MICROSCOPIC IF [id number] 06:35:00 Test Item Value Reference Range Interpretation [...] = 463) SOURCE(BEAKER) (test code = 2795) [employer] ID - [auto][employer] ID - techURINALYSIS [id number] 06:35:00 Test Item Value Reference Range Interpretation Comments RBC UA (BEAKER) (test code = 519) 3 /HPF WBC UA (BEAKER) (test code = 520) 11 /HPF BACTERIA (BEAKER) (test code = 517) Rare SQUAMOUS EPITHELIAL (BEAKER) (test 1 /HPF code = 516) [employer] ID - techPOCT-GLUCOSE [id number] 05:08:00 Test Item Value Reference Range Interpretation Comments POC-GLUCOSE METER 128 mg/dL 70-110 H : TESTED A T [facility] 6720 (BEAKER) (test code = DINA [place], 1538) [address]: [employer]/Techni chika ID = [id number] for As Meena beckett
--- NOTE | 2021-02-10 15:33 | RAD REPORT ---
EXAM DESCRIPTION: CT - Head Brain Wo Cont - 02/10/2021 3:24 pm CLINICAL HISTORY: CONFUSEDtransient alteration of awareness COMPARISON: Head Brain Wo Cont dated 02/02/2021 TECHNIQUE: Axial 5 mm thick images of the head were obtained without IV contrast. All CT scans are performed using dose optimization technique as appropriate and may include automated exposure control or mA/KV adjustment according to patient size. FINDINGS: No intracranial hemorrhage, mass, edema or shift of mid-line structures. No acute cortical infarction changes seen. No cortical edema or sulcal effacement. Atrophy and chronic ischemic change s match comparison. Ventricles are in proportion to volume loss. Arterial and physiologic calcificati ons are present. Mastoid air cells and visualized portions of the paranasal sinuses are clear. No acute bony findings. Postsurgical changes are present to the right cranial vault similar to compar renetta. IMPRESSION: Negative non-contrast CT head examination for acute finding. Above detailed findings are similar to February 02 study.
[2021-02-10 16:34] LABS: Absolute Lymphocytes (CBC) 1.5 K/uL (0.7-4.9); Basophils % 0.4 % (0-1.3); Hematocrit 33.9 % (36.0-45.0); Lymphocytes % 16.1 % (15.3-44.8); RBC Red Blood Cell Count 4.89 M/uL (3.86-4.86)
[2021-02-10 16:52] LABS: ALT/SGPT 18 U/L (12-78); AST/SGOT 11 U/L (15-37); Albumin 3.7 g/dL (3.4-5.0); Alkaline Phosphatase 93 U/L (45-117); BUN Blood Urea Nitrogen 15 mg/dL (7-18); Bicarbonate 28 mmol/L (21-32); Bilirubin Direct 0.1 mg/dL (0-0.2); Bilirubin Total 0.3 mg/dL (0.2-1.0); Glucose Level 161 mg/dL (74-106); Lipase 28 U/L (73-393); Potassium 4.1 mmol/L (3.5-5.1); Protein, Total 7.8 g/dL (6.4-8.2); Sodium Level 136 mmol/L (136-145); Troponin (Emerg Dept Use Only) < 0.02 ng/mL (0.0-0.045)
[2021-02-10 16:54] LABS: Protime INR 1.18
[2021-02-10 17:14] LABS: Anisocytosis 1+; Blood Morphology Comment NOTED (NOT SEEN); Hypochromasia 1+; Platelet Estimate ADEQ; White Blood Cell Scan OK (OK)
--- NOTE | 2021-02-10 18:03 | EDPHYS ---
Physician Documentation [facility] Name: Skylar Grossman Age: 85 yrs Sex: Female : 1935 Arrival Date: 02/10/2021 Time: 14:18 Bed 28 Private MD: ED Physician Maurisio Hall HPI: 02/10 17:38 This 85 yrs old Female presents to ER via EMS with complaints of Altered tw4 Mental Status. 17:38 The patient presents with. tw4 17:39 The patient has experienced syncope, lost consciousness. Duration: This was a single tw4 episode, that lasted an unknown period of time, that lasted 1 minute(s). Context: the episode(s) was witnessed, by no one. Associated injury: The patient did not suffer any apparent associated injury. Associated signs and symptoms: The patient has no apparent associated signs or symptoms. The patient has not experienced similar symptoms in the past. Historical: - Allergies: 14:43 Codeine (Upset stomach); jl7 14:43 meperidine HCl; jl7 14:43 Morphine; jl7 - Home Meds: 14:43 Plavix 75 mg Oral tab 1 tab once daily [Active]; metformin 500 mg Oral tab 1 tab 2 jl7 times per day [Active]; fluoxetine 20 mg Oral tab 1 tab once daily [Active]; gabapentin 300 mg oral cap 1 cap 3 times per day [Active]; Lantus 100 unit/mL Sub-Q soln 15 unit nightly [Active]; Flomax 0.4 mg Oral cp24 1 cap once daily [Active]; memantine 5 mg Oral tab 1 tabs 2 times per day [Active]; amitriptyline 25 mg Oral tab once daily [Active]; Bystolic 10 mg Oral tab once daily [Active]; lisinopril 40 mg Oral tab 1 tab once daily [Active]; melatonin 3 mg Oral tab nightly [Active]; Prilosec 20 mg Oral cpDR 1 cap once daily [Active]; simvastatin 20 mg Oral tab 1 tab once daily [Active]; Flomax 0.4 mg Oral cp24 [Active]; Humalog Sub-Q [Active]; - PMHx: 14:43 CVA; Depression; Diabetes - IDDM; GERD; High Cholesterol; Hypertension; Dementia; jl7 - Immunization history:: Adult Immunizations up to date. - Social history:: Smoking status: Patient denies any tobacco usage or history of. ROS: 17:39 Constitutional: Negative for fever, chills, and weight loss, Eyes: Negative for injury, tw4 pain, redness, and discharge, Cardiovascular: Negative for chest pain, palpitations, and edema, Respiratory: Negative for shortness of breath, cough, wheezing, and pleuritic chest pain, Abdomen/GI: Negative for abdominal pain, nausea, vomiting, diarrhea, and constipation, Back: Negative for injury and pain, MS/Extremity: Negative for injury and deformity, Skin: Negative for injury, rash, and discoloration. 17:39 Neuro: Positive for syncope, Negative for altered mental status, dizziness, gait disturbance, headache, hearing loss, loss of consciousness, numbness, seizure activity, speech changes, tinnitus, tremor, visual changes, weakness. Exam: 17:39 Constitutional: This is a well developed, well nourished patient who is awake, alert, tw4 and in no acute distress. Head/Face: Normocephalic, atraumatic. Chest/axilla: Normal chest wall appearance and motion. Nontender with no deformity. No lesions are appreciated. Cardiovascular: Regular rate and rhythm with a normal S1 and S2. No gallops, murmurs, or rubs. Normal PMI, no JVD. No pulse deficits. Respiratory: Lungs have equal breath sounds bilaterally, clear to auscultation and percussion. No rales, rhonchi or wheezes noted. No increased work of breathing, no retractions or nasal flaring. Abdomen/GI: Soft, non-tender, with normal bowel sounds. No distension or tympany. No guarding or rebound. No evidence of tenderness throughout. Back: No spinal tenderness. No costovertebral tenderness. Full range of motion. Skin: Warm, dry with normal turgor. Normal color with no rashes, no lesions, and no evidence of cellulitis. MS/ Extremity: Pulses equal, no cyanosis. Neurovascular intact. Full, normal range of motion. Neuro: Awake and alert, GCS 15, oriented to person, place, time, and situation. Cranial nerves II-XII grossly intact. Motor strength 5/5 in all extremities. Sensory grossly intact. Cerebellar exam normal. Normal gait. Vital Signs: 14:13 BP 137 / 110; Pulse 72; Resp 20; Pulse Ox 97% ; ap3 14:31 BP 126 / 79; Pulse 70; Resp 16; Temp 98.3; Pulse Ox 99% on R/A; Weight 68.04 kg; Pain jl7 0/10; 15:00 BP 126 / 88; Pulse 70; Resp 23; Pulse Ox 96% ; ap3 16:41 BP 155 / 78; Pulse 71; Pulse Ox 96% on R/A; ap3 18:00 BP 153 / 83; Pulse 66; Resp 15; Pulse Ox 97% ; Pain 0/10; jl7 NIH Stroke Scale Scores: 14:20 NIHSS Score: 0 jl7 MDM: 18:02 Patient medically screened. tw4 18:02 Data reviewed: vital signs, nurses notes. Data interpreted: Pulse oximetry: tw4 Interpretation: normal. Counseling: I had a detailed discussion with the patient and/or guardian regarding: the historical points, exam findings, and any diagnostic results supporting the discharge/admit diagnosis. Physician consultation: Saurabh Mohan regarding admission, to the telemetry unit. and will see patient. 02/10 14:27 Order name: Basic Metabolic Panel; Complete Time: 17:30 tw4 02/10 14:27 Order name: CBC with Diff; Complete Time: 17:30 tw4 02/10 14:27 Order name: Hepatic Function; Complete Time: 17:30 tw4 02/10 14:27 Order name: Lipase; Complete Time: 17:30 tw4 02/10 14:27 Order name: Magnesium; Complete Time: 17:30 tw4 02/10 14:27 Order name: Protime (+inr); Complete Time: 17:30 tw4 02/10 14:27 Order name: CT Head Brain wo Cont; Complete Time: 17:30 tw4 02/10 14:27 Order name: Ptt, Activated; Complete Time: 17:30 tw4 02/10 14:27 Order name: Troponin (emerg Dept Use Only); Complete Time: 17:30 tw4 02/10 15:07 Order name: Type And Screen jl7 02/10 15:07 Order name: Type and Screen EDMS 02/10 17:14 Order name: CBC Smear Scan; Complete Time: 17:30 EDMS 02/10 18:16 Order name: COVID-19 : Document "Date of Symptom Onset" if Symptomatic. aa5 06/02 18:16 Order name: CORONAVIRUS EDMS 02/10 14:27 Order name: EKG; Complete Time: 14:27 02/10 14:27 Order name: Cardiac monitoring; Complete Time: 15:07 02/10 14:27 Order name: EKG - Nurse/Tech; Complete Time: 14:39 tw4 02/10 14:27 Order name: IV Saline Lock; Complete Time: 16:28 02/10 14:27 Order name: Labs collected and sent; Complete Time: 16:28 02/10 14:27 Order name: NPO; Complete Time: 15:07 02/10 14:27 Order name: O2 Per Protocol; Complete Time: 15:02/10 14:27 Order name: O2 Sat Monitoring; Complete Time: 15: EC:00 Rate is 70 beats/min. Rhythm is irregularly irregular. QRS [place] is Normal. IA interval tw4 is normal. QRS interval is normal. QT interval is normal. No Q waves. T waves are Normal in leads I, II, V1, V2, V3. T waves are Inverted. No ST changes noted. Clinical impression: Atrial Fibrillation. Interpreted by me. Reviewed by me. Administered Medications: 16:41 Drug: NS 0.9% 500 ml Route: IV; Rate: bolus; Site: left wrist; jl 17:20 Follow up: Response: No adverse reaction; IV Status: Completed infusion; IV Intake: jl7 500ml Disposition: 02/10/21 18:02 Hospitalization ordered by Saurabh Mohan for Observation. Preliminary diagnosis is Syncope and collapse. - Bed requested for Telemetry/MedSurg (observation). - Status is Observation. jl7 - Condition is Stable. - Problem is new. - Symptoms have improved. NIH Stroke Scale - NIH Stroke Score Date: 02/10/2021 Time: 14:20 Total Score = 0 1a. Level of Consciousness (LOC) - 0(Alert) 1b. Level of Consciousness (LOC) (Year \\T\\ Age) - 0(Both) 1c. LOC Commands (Open \\T\\ Closes Eyes/Technical Planner) - 0(Both) 2. Best Gaze (Lateral Gaze Paresis) - 0(Normal) 3. Visual Field Loss - 0(No visual loss) 4. Facial Palsy - 0(Normal) 5a. Left Arm: Motor (10-second hold) - 0(No drift) 5b. Right Arm: Motor (10-second hold) - 0(No drift) 6a. Left Leg: Motor (5-second hold - always test supine) - 0(No drift) 6b. Right Leg: Motor (5-second hold - always test supine) - 0(No drift) 7. Limb Ataxia (finger/nose \\T\\ heel/eldridge - test with eyes open) - 0(Absent) 8. Sensory Loss (pinprick arms/legs/face) - 0(Normal) 9. Best Language: Aphasia (description/naming/reading) - 0(No aphasia) 10. Dysarthria (speech clarity - read or repeat words) - 0(Normal) 11. Extinction and Inattention (visual/tactile/auditory/spatial/personal) - 0(No abnormality) Initials: jl7 Signatures: Dispatcher [employer] Marcellus Song RN RN jl7 Maurisio Hall MD MD tw4 Corrections: (The following items were deleted from the chart) 19:01 18:02 Hospitalization Ordered by Saurabh Mohan for Observation. Preliminary jl7 diagnosis is Syncope and collapse. Bed requested for Telemetry/MedSurg (observation). Status is Observation. Condition is Stable. Problem is new. Symptoms have improved. tw4
--- NOTE | 2021-02-10 18:03 | ER ---
Nurse's Notes [facility] Name: Skylar Grossman Age: 85 yrs Sex: Female : 1935 Arrival Date: 02/10/2021 Time: 14:18 Bed 28 Private MD: Diagnosis: Syncope and collapse Presentation: 02/10 14:31 Chief complaint: EMS states: Toned out for syncopal episode by pt's sister, pt was jl7 altered with slurred speech on arrival, initial BP 92 systolic, placed pt prone and in Trendelenburg, BP slowly increased along with alertness, pt is A\\T\\Ox3 in triage, appears pale and mouth is dry is triage, denies pain, denies SOB, denies N/V/D. Coronavirus screen: Client denies travel out of the [place] in the last 14 days. At this time, the client does not indicate any symptoms associated with coronavirus-19. Ebola Screen: No symptoms or risks identified at this time. Initial Sepsis Screen: Does the patient meet any 2 criteria? No. Patient's initial sepsis screen is negative. Does the patient have a suspected source of infection? No. Patient's initial sepsis screen is negative. Risk Assessment: Do you want to hurt yourself or someone else? Patient reports no desire to harm self or others. Onset of symptoms was February 10, 2021. Care prior to arrival: BGL WNL, negative stroke screen. 14:31 Method Of Arrival: EMS: [facility] 7 14:31 Acuity: FARIDA 2 jl7 Triage Assessment: 14:20 General: Appears in no apparent distress. uncomfortable, Behavior is calm, cooperative, jl7 appropriate for age. Pain: Denies pain. Neuro: Level of Consciousness is awake, alert, obeys commands, Oriented to person, place, time, situation. Cardiovascular: Denies chest pain, Patient's skin is warm and dry. Respiratory: Airway is patent Respiratory effort is even, unlabored, Respiratory pattern is regular, symmetrical, Denies shortness of breath. GI: Parent/caregiver reports the patient having "She hasn't had a BM in 3 days.". : Denies burning with urination, pain. Derm: Skin is dry, Skin is pale, Skin temperature is warm. Historical: - Allergies: 14:43 Codeine (Upset stomach); jl7 14:43 meperidine HCl; jl7 14:43 Morphine; jl7 - Home Meds: 14:43 Plavix 75 mg Oral tab 1 tab once daily [Active]; metformin 500 mg Oral tab 1 tab 2 jl7 times per day [Active]; fluoxetine 20 mg Oral tab 1 tab once daily [Active]; gabapentin 300 mg oral cap 1 cap 3 times per day [Active]; Lantus 100 unit/mL Sub-Q soln 15 unit nightly [Active]; Flomax 0.4 mg Oral cp24 1 cap once daily [Active]; memantine 5 mg Oral tab 1 tabs 2 times per day [Active]; amitriptyline 25 mg Oral tab once daily [Active]; Bystolic 10 mg Oral tab once daily [Active]; lisinopril 40 mg Oral tab 1 tab once daily [Active]; melatonin 3 mg Oral tab nightly [Active]; Prilosec 20 mg Oral cpDR 1 cap once daily [Active]; simvastatin 20 mg Oral tab 1 tab once daily [Active]; Flomax 0.4 mg Oral cp24 [Active]; Humalog Sub-Q [Active]; - PMHx: 14:43 CVA; Depression; Diabetes - IDDM; GERD; High Cholesterol; Hypertension; Dementia; jl7 - Immunization history:: Adult Immunizations up to date. - Social history:: Smoking status: Patient denies any tobacco usage or history of. Screenin:20 Abuse screen: Denies threats or abuse. Denies injuries from another. Nutritional jl7 screening: No deficits noted. Tuberculosis screening: No symptoms or risk factors identified. Fall Risk No fall in past 12 months (0 pts). Secondary diagnosis (15 points) dementia, IV access (20 points). Gait- Weak (10 pts.). Mental Status- Oriented to own ability (0 pts). Total Nettles Fall Scale indicates High Risk Score (45 or more points). Fall prevention measures have been instituted. Side Rails Up X 2 Placed Close to Nursing Station Frequent Obs/Assessments Occuring Family Present and informed to notify staff if the need to leave the bedside As available patient and family educated on Fall Prevention Program and Strategies. Assessment: 14:20 General: See triage assessment. jl7 15:00 Reassessment: Patient appears in no apparent distress at this time. No changes from jl7 previously documented assessment. Patient and/or family updated on plan of care and expected duration. Pain level reassessed. Patient is alert, oriented x 3, equal unlabored respirations, skin warm/dry/pink. 16:00 Reassessment: Patient appears in no apparent distress at this time. No changes from jl7 previously documented assessment. Patient and/or family updated on plan of care and expected duration. Pain level reassessed. Patient is alert, oriented x 3, equal unlabored respirations, skin warm/dry/pink. 17:00 Reassessment: Patient appears in no apparent distress at this time. No changes from jl7 previously documented assessment. Patient and/or family updated on plan of care and expected duration. Pain level reassessed. Patient is alert, oriented x 3, equal unlabored respirations, skin warm/dry/pink. 18:00 Reassessment: Dr. Hall at bedside discussing results and POC. jl7 Vital Signs: 14:13 BP 137 / 110; Pulse 72; Resp 20; Pulse Ox 97% ; ap3 14:31 BP 126 / 79; Pulse 70; Resp 16; Temp 98.3; Pulse Ox 99% on R/A; Weight 68.04 kg; Pain jl7 0/10; 15:00 BP 126 / 88; Pulse 70; Resp 23; Pulse Ox 96% ; ap3 16:41 BP 155 / 78; Pulse 71; Pulse Ox 96% on R/A; ap3 18:00 BP 153 / 83; Pulse 66; Resp 15; Pulse Ox 97% ; Pain 0/10; jl7 NIH Stroke Scale Scores: 14:20 NIHSS Score: 0 jl7 ED Course: 14:18 Patient arrived in ED. ds1 14:20 Arm band placed on right wrist. EKG completed in triage. Results shown to MD. jl7 14:20 Patient has correct armband on for positive identification. Placed in gown. Bed in low jl7 position. Call light in reach. Side rails up X2. line pilot on. Pulse ox on. NIBP on. Warm blanket given. 14:23 Maurisio Hall MD is Attending Physician. tw4 14:30 Marcellus Alvarado, JOSE EDUARDO is Primary Nurse. jl7 14:36 Triage completed. jl7 15:24 CT Head Brain wo Cont In Process Unspecified. EDMS 15:45 Missed attempt(s): 22 gauge in right forearm. Bleeding controlled, band aid applied, jl7 catheter tip intact. 15:50 Missed attempt(s): 22 gauge in right wrist. Bleeding controlled, band aid applied, jl7 catheter tip intact. 16:00 Missed attempt(s): 22 gauge in left forearm. Bleeding controlled, band aid applied, jl7 catheter tip intact. 16:20 Initial lab(s) drawn, by me, sent to lab. Inserted saline lock: 22 gauge in left wrist, aa5 using aseptic technique. Blood collected. 18:01 Saurabh Mohan is Hospitalizing Provider. tw4 18:58 No provider procedures requiring assistance completed. IV discontinued, intact, jl7 bleeding controlled, No redness/swelling at site. Pressure dressing applied. Administered Medications: 16:41 Drug: NS 0.9% 500 ml Route: IV; Rate: bolus; Site: left wrist; jl7 17:20 Follow up: Response: No adverse reaction; IV Status: Completed infusion; IV Intake: jl7 500ml Intake: 17:20 IV: 500ml; Total: 500ml. jl7 Outcome: 18:02 Decision to Hospitalize by Provider. tw4 18:58 AMA AMA form signed jl7 19:01 Patient left the ED. jl7 NIH Stroke Scale - NIH Stroke Score Date: 02/10/2021 Time: 14:20 Total Score = 0 1a. Level of Consciousness (LOC) - 0(Alert) 1b. Level of Consciousness (LOC) (Year \\T\\ Age) - 0(Both) 1c. LOC Commands (Open \\T\\ Closes Eyes/Foot Press Operator) - 0(Both) 2. Best Gaze (Lateral Gaze Paresis) - 0(Normal) 3. Visual Field Loss - 0(No visual loss) 4. Facial Palsy - 0(Normal) 5a. Left Arm: Motor (10-second hold) - 0(No drift) 5b. Right Arm: Motor (10-second hold) - 0(No drift) 6a. Left Leg: Motor (5-second hold - always test supine) - 0(No drift) 6b. Right Leg: Motor (5-second hold - always test supine) - 0(No drift) 7. Limb Ataxia (finger/nose \\T\\ heel/eldridge - test with eyes open) - 0(Absent) 8. Sensory Loss (pinprick arms/legs/face) - 0(Normal) 9. Best Language: Aphasia (description/naming/reading) - 0(No aphasia) 10. Dysarthria (speech clarity - read or repeat words) - 0(Normal) 11. Extinction and Inattention (visual/tactile/auditory/spatial/personal) - 0(No abnormality) Initials: jl7 Signatures: Dispatcher [employer] [facility] Thacker, Beatrice ds1 Petty Cameron, RN RN aa5 Marcellus Alvarado RN RN jl7 Maurisio Hall MD MD tw4 Bianca Watts RN RN ap3
[2021-02-10 19:19] VITALS: TEMP 98.3
[2021-02-10 19:22] VITALS: BP 153/83; O2SAT 97
--- NOTE | 2021-02-11 07:53 | EKG ---
Test Date: 2021-02-10 Test Time: 14:29:31 Track Welder: RUSLAN MEASUREMENT RESULTS: Intervals: Rate: 70 [place]: QRSD: 116 QT: 440 QTc: 475 [place]: P: [place]: QRS: 44 T: 33 INTERPRETIVE STATEMENTS: Atrial fibrillation Right bundle branch block Abnormal ECG Compared to ECG 02/02/2021 11:45:04 Uncertain supraventricular rhythm no longer present T-wave abnormality no longer present Possible ischemia no longer present Electronically Signed On 02-11-21 07:50:38 CDT by Chintan Lopez
== END ==
LOC: ER 14:17
DX: R55 Syncope and collapse (principal); I10 Essential (primary) hypertension; E11.9 Type 2 diabetes mellitus without complications; F03.90 Unspecified dementia, unspecified severity, without behavioral disturbance, psychotic disturbance, mood disturbance, and anxiety; Z79.01 Long term (current) use of anticoagulants; Z79.4 Long term (current) use of insulin; Z86.73 Personal history of transient ischemic attack (TIA), and cerebral infarction without residual deficits; Z88.5 Allergy status to narcotic agent; Z88.8 Allergy status to other drugs, medicaments and biological substances
CPT/HCPCS: 93005; 85025; 80048; 36415; 86900; 83735; 86850; 85610; 86901; 80076; 85730; 84484; 83690; 70450; 96360; 99284; J7040

== ENCOUNTER 2021-08-12 12:21 | Observation (INO) | payer OTHER, MEDICARE ==
--- OUTSIDE RECORDS SUMMARY | 2021-08-12 12:24 | XMS REPORT | Continuity of Care Document ---
:1935 Author Organization [facility] t Address [address] [place] [address] Dr. Peralta. [address] [place] [id number] Care Team Providers Name Role Phone Jose Primary Care Physician Donovan MCINTYRE Attending Clinician Unavailable Therapy, [facility] Covid Attending Clinician Unavailable Unknown Attending Clinician Unavailable UNKNOWN Attending Clinician Unavailable Marciano WHITT, P Attending Clinician Unavailable Only, Db Test Attending Clinician Unavailable Toma [employer] ARCHITECT Attending Clinician TOMA Attending Clinician Unavailable Doctor Unassigned, Name Attending Clinician Unavailable Donovan MCINTYRE Admitting Clinician Unavailable ALBERTO Admitting Clinician Unavailable Payers Payer Name Policy Policy Number Effective Expiration Source Type Date Date MEDICARE A B [id number] 1998 [facility]:00[facility]00 [id number] HEALTHCARE 00:00:00 MEDICAREMEDICARE [id number] [facility] ity of PART A & 00:00:00 [facility] [id number] 1998 [phone] [id number] SOFIA [id number] [facility] [id number] 2017 [place] o HEALTHCAREUNITED 00:00:00 [place] Me dical HEALTHCARE MEDICARE Branc h [id number] 2018-PresentP. OMeka ARAMBULA [id number], [place] [address]Medicare Supplement Problems Condition Condition Condition Status Onset Resolution Last Treating Co mments Source Name Details Category Date Date Treatment Clinician Date Pain in Pain in Disease Active Overview: Univ ers limb limb 12-04 Formattin ity of 00:00: g of this [place] 00 note Medical might be Branch different from the original. 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 Right Neuralgia, Neuralgia, Disease Active Overview : Univers neuritis, neuritis, 12-04 Formattin i ty of and and 00:00: g of this [place] radiculiti radiculiti 00 note Me dical s, s, might be Branch unspecifie unspecifie different d d from the original. Cervical radiculop athy Osteoarthr Osteoarthr Disease Active Overview : Univers itis itis 12-04 Formattin ity of 00:00: g of this [place] 00 note Medical might be Branch different from the original. 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 ICD10 Diagnosis Term Shot Packer Utility Chronic Chronic Disease Active 2005-09 Univers depressive depressive 1-15 it y of personalit [place]it [place] disorder [place] disorder 00 Me dical Branch HLD HLD Disease Active 2005-09 Overview: Univer s (hyperlipi (hyperlipi 1-15 Formattin ity of demia) demia) 00:00: g of this [place] 00 note Medical might be Branch different from the original. 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 ICD10 Diagnosis Term Shot Packer Utility Allergies, Adverse Reactions, Alerts Allergy Allergy Status Severity Reaction(s) Onset Inactive Treating Comm ents Source Name Type Date Date Clinician CODEINE Allergy Active 2019-[address] [facility] MEPERIDI Allergy Active 2019-[address] [facility] [address] [facility] MORPHINE Allergy Active 2019-[address] [facility] MEPERIDI DRUG Active Unknown-Cmnt Un teo NE HCL INGREDI 3-10 ity of 00:00: [place] 00 Medical Branch Meperidi Propensi Active Unknown - REACTIONS Univers ne Hcl ty to See comments 3-10 UNKNOWN ity of adverse 00:00: [place] reaction 00 Medical s Branch CODEINE DRUG Active High Anaphylaxis 2005-09 Univ ers INGREDI 0-04 ity of 00:00: [place] 00 Medical Branch Codeine Propensi Active Anaphylaxis 2005-09 Un teo ty to 0-04 ity of adverse 00:00: [place] reaction 00 Medical s to Branch drug NO KNOWN Allergy Active [facility] ALL[facility]GIE S Social History Social Habit Start Date Stop Date Quantity Comments Source Exposure to Yes [facility] SARS-CoV-2 [place] [facility] (event) Branch Alcohol intake 2008-05-18 2008-05-18 Current [place] of 00:00:00 00:00:00 non-drinker of [facility] alcohol Branch (finding) Sex Ass[birth year] At [birth year] Universit y of 00:00:00 00:00:00 [facility] Smoking Status Start Date Stop Date Source Never smoker [facility] Medications Ordered Filled Start Stop Current Ordering Indication Dosage Frequency Signature Comments Components Source Medication Medication Date Date Medication? Clinician (SIG) Name Name PEPCID Yes prn Univers MG ORAL TAB 6-11 ity of 04:52: [address] B COMPLEX 1 Yes None Univer s ORAL TAB 6-11 Entered ity of 04:52: [address] M-VIT ORAL Yes None Univers 6-11 Entered ity of 04:52: [address] Branch PEPCID 20 Yes prn Univers MG ORAL TAB 6-11 ity of 04:52: [address] B COMPLEX 1 Yes None Univer s ORAL TAB 6-11 Entered ity of 04:52: [address] M-VIT ORAL Yes None Univers 6-11 Entered ity of 04:52: [address] PEPCID 20 Yes prn Univers MG ORAL TAB 6-11 ity of 04:52: [address] 1 Yes None Univer s ORAL TAB 6-11 Entered ity of 04:52: [address] M-VIT ORAL Yes None Univers 6-11 Entered ity of 04:52: [address] PEPCID 20 Yes prn Univers MG ORAL TAB 6-11 ity of 04:52: [address] COMPLEX 1 Yes None Univer s ORAL TAB 6-11 Entered ity of 04:52: [address] M-VIT ORAL Yes None Univers 6-11 Entered ity of 04:52: [address] PEPCID 20 Yes prn Univers MG ORAL TAB 6-10 ity of 23:52: [address] COMPLEX 1 Yes None Univer s ORAL TAB 6-10 Entered ity of 23:52: [address] M-VIT ORAL Yes None Univers 6-10 Entered ity of 23:52: [address] PEPCID 20 Yes prn Univers MG ORAL TAB 6-10 ity of 23:52: [address] 1 Yes None Univer s ORAL TAB 6-10 Entered ity of 23:52: [address] M-VIT ORAL Yes None Univers 6-10 Entered ity of 23:52: [address] PROTONIX 40 Yes [id number] 1 tab PO Univers MG ORAL 4-01 daily ity of TBEC 00:00: [address] [place] [address] PROTONIX 40 Yes [id number] 1 tab PO Univers MG ORAL 4-01 daily ity of TBEC 00:00: [facility] PROTONIX 40 Yes [id number] 1 tab PO Univers MG ORAL 4-01 daily ity of TBEC 00:00: [place] [facility] PROTONIX 40 Yes [id number] 1 tab PO Univers MG ORAL 4-01 daily ity of TBEC 00:00: [place] 00 [facility] PROTONIX 40 2009-0 Yes [id number] 1 tab PO Univers MG ORAL 4-01 daily ity of TBEC 00:00: [place] [facility] PROTONIX 40 2009-0 Yes [id number] 1 tab PO Univers MG ORAL 4-01 daily ity of TBEC 00:00: [place] 00 [facility] ENALAPRIL 2009-0 Yes [id number] 1 tab po Univers MALEATE 20 1-15 BID ity of MG ORAL TAB 00:00: [place] 00 [facility] ENALAPRIL 2009-0 Yes [id number] 1 tab po Univers MALEATE 20 1-15 BID ity of MG ORAL TAB 00:00: [place] [facility] ENALAPRIL 2009-0 Yes [id number] 1 tab po Univers MALEATE 20 1-15 BID ity of MG ORAL TAB 00:00: [place] 00 [facility] ENALAPRIL 2009-0 Yes [id number] 1 tab po Univers MALEATE 20 1-15 BID ity of MG ORAL TAB 00:00: [place] [facility] ENALAPRIL 2009-0 Yes [id number] 1 tab po Univers MALEATE 20 1-15 BID ity of MG ORAL TAB 00:00: [place] 00 [facility] ENALAPRIL 2009-0 Yes [id number] 1 tab po Univers MALEATE 20 1-15 BID ity of MG ORAL TAB 00:00: [place] 00 [facility] HYDROCHLORO 2008- Yes [id number] take 1 po Univers THIAZIDE 25 0-30 daily ity of MG ORAL TAB 00:00: [place] 00 [facility] HYDROCHLORO 2008- Yes [id number] take 1 po Univers THIAZIDE 25 0-30 daily ity of MG ORAL TAB 00:00: [place] 00 [facility] HYDROCHLORO 2008- Yes [id number] take 1 po Univers THIAZIDE 25 0-30 daily ity of MG ORAL TAB 00:00: [place] 00 [facility] HYDROCHLORO 2008- Yes [id number] take 1 po Univers THIAZIDE 25 0-30 daily ity of MG ORAL TAB 00:00: [place] 00 [facility] HYDROCHLORO 2008- Yes [id number] take 1 po Univers THIAZIDE 25 0-30 daily ity of MG ORAL TAB 00:00: [place] 00 [facility] HYDROCHLORO 2008- Yes [id number] take 1 po Univers THIAZIDE 25 0-30 daily ity of MG ORAL TAB 00:00: [place] 00 Medical Branch GLIPIZIDE 5 Yes tske 2 tab Univers MG ORAL TAB 9-09 qam and 1 ity of 00:00: tab qpm Medical Branch GLIPIZIDE 5 Yes tske 2 tab Univers MG ORAL TAB 9-09 qam and 1 ity of 00:00: tab qpm Medical Branch GLIPIZIDE 5 Yes tske 2 tab Univers MG ORAL TAB 9-09 qam and 1 ity of 00:00: tab qpm Medical Branch GLIPIZIDE 5 Yes tske 2 tab Univers MG ORAL TAB 9-09 qam and 1 ity of 00:00: tab qpm Medical Branch GLIPIZIDE 5 Yes tske 2 tab Univers MG ORAL TAB 9-09 qam and 1 ity of 00:00: tab qpm Medical Branch GLIPIZIDE 5 Yes tske 2 tab Univers MG ORAL TAB 9-09 qam and 1 ity of 00:00: tab qpm Medical Branch ATENOLOL Yes [id number] one tab po Univers 100 MG ORAL 8-27 daily ity of TAB 00:00: Medical Branch NORCO Yes 1 tab po Univers 7.5-325 MG 8-27 TID ity of ORAL TAB 00:00: Medical Branch AMITRIPTYLI Yes 2 tabs QHS Univers NE 50 MG 8-27 ity of ORAL TAB 00:00: Medical Branch METFORMIN Yes [id number] 1 tab PO Univers 850 MG ORAL 8-27 TID ity of TAB 00:00: Medical Branch CLONIDINE Yes [id number] take 1 po Univers 0.2 MG ORAL 8-27 qid for 1 ity of TAB 00:00: week, then [place] 00 tid for 1 Medical week, then Branch bid and prn thereafter PRAVASTATIN Yes [id number] take 1 po Univers 40 MG ORAL 8-27 qhs ity of TAB 00:00: Medical Branch ATENOLOL Yes [id number] one tab po Univers 100 MG ORAL 8-27 daily ity of TAB 00:00: Medical Branch NORCO Yes 1 tab po Univers 7.5-325 MG 8-27 TID ity of ORAL TAB 00:00: [place] [facility] AMITRIPTYLI Yes 2 tabs QHS Univers NE 50 MG 8-27 ity of ORAL TAB 00:00: [place] [facility] METFORMIN Yes [id number] 1 tab PO Univers 850 MG ORAL 8-27 TID ity of TAB 00:00: [place] [facility] CLONIDINE Yes [id number] take 1 po Univers 0.2 MG ORAL 8-27 qid for 1 ity of TAB 00:00: week, then [place] 00 tid for 1 Medical week, then Branch bid and prn thereafter PRAVASTATIN Yes [id number] take 1 po Univers 40 MG ORAL 8-27 qhs ity of TAB 00:00: [place] [facility] ATENOLOL Yes [id number] one tab po Univers 100 MG ORAL 8-27 daily ity of TAB 00:00: [place] [facility] NORCO Yes 1 tab po Univers 7.5-325 MG 8-27 TID ity of ORAL TAB 00:00: [place] [facility] AMITRIPTYLI Yes 2 tabs QHS Univers NE 50 MG 8-27 ity of ORAL TAB 00:00: [place] [facility] METFORMIN Yes [id number] 1 tab PO Univers 850 MG ORAL 8-27 TID ity of TAB 00:00: [place] [facility] CLONIDINE Yes [id number] take 1 po Univers 0.2 MG ORAL 8-27 qid for 1 ity of TAB 00:00: week, then [place] 00 tid for 1 Medical week, then Branch bid and prn thereafter PRAVASTATIN Yes [id number] take 1 po Univers 40 MG ORAL 8-27 qhs ity of TAB 00:00: [place] [facility] ATENOLOL Yes [id number] one tab po Univers 100 MG ORAL 8-27 daily ity of TAB 00:00: [place] [facility] NORCO Yes 1 tab po Univers 7.5-325 MG 8-27 TID ity of ORAL TAB 00:00: [place] [facility] AMITRIPTYLI Yes 2 tabs QHS Univers NE 50 MG 8-27 ity of ORAL TAB 00:00: [place] [facility] METFORMIN Yes [id number] 1 tab PO Univers 850 MG ORAL 8-27 TID ity of TAB 00:00: [place] [facility] CLONIDINE Yes [id number] take 1 po Univers 0.2 MG ORAL 8-27 qid for 1 ity of TAB 00:00: week, then [place] 00 tid for 1 Medical week, then Branch bid and prn thereafter PRAVASTATIN Yes [id number] take 1 po Univers 40 MG ORAL 8-27 qhs ity of TAB 00:00: [place] [facility] ATENOLOL Yes [id number] one tab po Univers 100 MG ORAL 8-27 daily ity of TAB 00:00: [place] [facility] NORCO Yes 1 tab po Univers 7.5-325 MG 8-27 TID ity of ORAL TAB 00:00: [place] [facility] AMITRIPTYLI Yes 2 tabs QHS Univers NE 50 MG 8-27 ity of ORAL TAB 00:00: [place] [facility] METFORMIN Yes [id number] 1 tab PO Univers 850 MG ORAL 8-27 TID ity of TAB 00:00: [place] [facility] CLONIDINE Yes [id number] take 1 po Univers 0.2 MG ORAL 8-27 qid for 1 ity of TAB 00:00: week, then [place] 00 tid for 1 Medical week, then Branch bid and prn thereafter PRAVASTATIN Yes [id number] take 1 po Univers 40 MG ORAL 8-27 qhs ity of TAB 00:00: [place] [facility] ATENOLOL Yes [id number] one tab po Univers 100 MG ORAL 8-27 daily ity of TAB 00:00: [place] [facility] NORCO Yes 1 tab po Univers 7.5-325 MG 8-27 TID ity of ORAL TAB 00:00: [place] [facility] AMITRIPTYLI Yes 2 tabs QHS Univers NE 50 MG 8-27 ity of ORAL TAB 00:00: [place] [facility] METFORMIN 2007- Yes [id number] 1 tab PO Univers 850 MG ORAL 8-27 TID ity of TAB 00:00: [place] [facility] CLONIDINE Yes [id number] take 1 po Univers 0.2 MG ORAL 8-27 qid for 1 ity of TAB 00:00: week, then [place] 00 tid for 1 Medical week, then Branch bid and prn thereafter PRAVASTATIN Yes [id number] take 1 po Univers 40 MG ORAL 8-27 qhs ity of TAB 00:00: Medical Branch CLONIDINE 2007- Yes [id number] 1 tab tid Univers 0.3 MG ORAL 4-30 and prn ity o f TAB 00:00: Medical Branch CLONIDINE 2007- Yes [id number] 1 tab tid Univers 0.3 MG ORAL 4-30 and prn ity o f TAB 00:00: Medical Branch CLONIDINE 2007- Yes [id number] 1 tab tid Univers 0.3 MG ORAL 4-30 and prn ity o f TAB 00:00: Medical Branch CLONIDINE 2007- Yes [id number] 1 tab tid Univers 0.3 MG ORAL 4-30 and prn ity o f TAB 00:00: [place] [facility] CLONIDINE 2007- Yes [id number] 1 tab tid Univers 0.3 MG ORAL 4-30 and prn ity o f TAB 00:00: Medical Branch CLONIDINE 2007- Yes [id number] 1 tab tid Univers 0.3 MG ORAL 4-30 and prn ity o f TAB 00:00: [place] [facility] Branch ASPIRIN 325 2006- Yes [id number] 1 tab U nivers MG ORAL TAB 0-04 daily ity of 00:00: [place] [facility] ASPIRIN 325 2006- Yes [id number] 1 tab U nivers MG ORAL TAB 0-04 daily ity of 00:00: [place] [facility] Branch ASPIRIN 325 2006- Yes [id number] 1 tab U nivers MG ORAL TAB 0-04 daily ity of 00:00: [facility] Branch ASPIRIN 325 2006- Yes [id number] 1 tab U nivers MG ORAL TAB 0-04 daily ity of 00:00: [place] [facility] Branch ASPIRIN 325 2006- Yes [id number] 1 tab U nivers MG ORAL TAB 0-04 daily ity of 00:00: [place] [facility] ASPIRIN 325 2006- Yes [id number] 1 tab U nivers MG ORAL TAB 0-04 daily ity of 00:00: [place] [facility] Immunizations Ordered Filled Immunization Date Status Comments [facility] e Immunization Name Name Influenza Virus 2007-06-20 Completed Universit y of Vaccine 00:00:00 [place] [facility] Influenza Virus 2007-06-20 Completed Universit y of Vaccine 00:00:00 [facility] Influenza Virus 2007-06-20 Completed Universit y of Vaccine 00:00:00 [facility] Influenza Virus 2007-06-20 Completed Universit y of Vaccine 00:00:00 [facility] Influenza Virus 2007-06-20 Completed Universit y of Vaccine 00:00:00 [facility] Influenza Virus 2007-06-20 Completed Universit y of Vaccine 00:00:00 [facility] Influenza Virus 2006-07-26 Completed Universit y of Vaccine 00:00:00 [facility] Influenza Virus 2006-07-26 Completed Universit y of Vaccine 00:00:00 [facility] Influenza Virus 2006-07-26 Completed Universit y of Vaccine 00:00:00 [facility] Influenza Virus 2006-07-26 Completed Universit y of Vaccine 00:00:00 [facility] Influenza Virus 2006-07-26 Completed Universit y of Vaccine 00:00:00 [facility] Influenza Virus 2006-07-26 Completed Universit y of Vaccine 00:00:00 [facility] Vital Signs Vital Name Observation Time Observation Value Comments Source WEIGHT 2020-03-24 00:00:00 76.658 kg Systolic blood 2021-05-11 01:25:00 156 mm[Hg] Univer sity of pressure [facility] Diastolic blood 2021-05-11 01:25:00 77 mm[Hg] Unive rsity of pressure [facility] Heart rate 2021-05-11 01:25:00 65 /min [facility] Body temperature 2021-05-11 01:25:00 36.94 Sindhu [facility] Respiratory rate 2021-05-11 01:25:00 18 /min [facility] Oxygen saturation in 2021-05-11 01:25:00 96 /min [facility] Arterial blood by [facility] Pulse oximetry [place] Body weight 2021-05-10 12:50:00 68.04 kg Universi [facility] WEIGHT 2020-03-24 00:00:00 76.658 kg Procedures Procedure Date / Time Performed Performing Clinician [facility] e ASSIGNMENT OF BENEFITS 2021-05-07 21:31:03 Doctor Unassigned, No [facility] Encounters Start End Encounter Admission Attending Care Care Encounter Source Date/Time Date/Time Type Type Clinicians Facility Department ID 2020-03-24 Inpatient ER FRANCISCO JAVIER, [facility] [id number] 62 [facility] 23:52:00 JUAQUIN Med 2021-05-10 2021-05-10 Nurse Therapy, Kevin Suhid [facility] 1.2. [id number] Univers 19:27:33 20:27:33 Visit Unknown, [id number] [id number] Shawn as Terrell?Blea [id number] [address] Medical Office [facility] 2021-05-10 2021-05-10 Outpatient R [facility] [id number] Univers 19:30:00 19:30:00 [id number] ity [facility] 2021-05-10 2021-05-10 Outpatient R UNKNOWN, [facility] [id number] Univers 19:30:00 19:30:00 ATTENDING ity [facility] 2021-05-09 2021-05-09 Telephone TRENT Tariq [id number] Univers 00:00:00 00:00:00 Gessica P RAYA [id number] ity of [facility] [id number] Shawn as [id number] [address] 2021-05-07 2021-05-07 Laboratory Only, Kevin Db Test [facility] [id number] Univers 17:11:44 17:31:44 Only Mari Browne [id number] [facility] [id number] [place] as Terrell?Blea [id number] [address] Office [facility] 2021-05-07 2021-05-07 Outpatient R [facility] [id number] Univers 17:15:00 17:15:00 [id number] ity [facility] 2021-05-07 2021-05-07 [facility] [id number] Univers 17:15:00 17:15:00 MARI ity [facility] 2021-05-07 2021-05-07 Outpatient R TOMA [facility] [id number] Univers 16:20:00 16:20:00 MARI ity of [facility] 2021-05-07 2021-05-07 Orders Doctor TRENT [id number] Univers 00:00:00 00:00:00 Only Unassigned, RAYA [id number] ity of [place] [facility] [id number] Shawn as [phone] [address] Results Test Description Test Time Test Comments Results Result Comments Source POCT-GLUCOSE METER 2020-03-29 11:32:00 Test Item Value Reference Range Interpretation Comme nts POC-GLUCOSE METER (BEAKER) 235 mg/dL 70-110 H : TESTED AT [facility] [address] [facility] (test code = 1538) VARGAS Vanessa , [address]: Hat Cone Inspector/Techni chika ID = [id number] for QUEEN NATARAJAN POCT-GLUCOSE [id number] 07:37:00 Test Item Value Reference Range Interpretation Comments POC-GLUCOSE METER 190 mg/dL 70-110 H : TESTED A T [facility] 6720 (BEAKER) (test code = DINA Ortega [facility], 1538) [address]: Hat Cone Inspector/Techni chika ID = [id number] for LOYDA NATHANQUEEN STEPHENS CBC W/PLT COUNT & AUTO [id number] 06:10:00 Test Item Value Reference Range Interpretation [...] PERCENT (BEAKER) (test code = 2801) POCT-GLUCOSE [id number] 22:16:00 Test Item Value Reference Range Interpretation Comments POC-GLUCOSE METER 275 mg/dL 70-110 H : TESTED A T [facility] 6720 (BEAKER) (test code = [facility], 153) 23667: Hat Cone Inspector/Techni chika ID = [id number] for JODI HENAOIS POCT-GLUCOSE [id number] 16:44:00 Test Item Value Reference Range Interpretation Comments POC-GLUCOSE METER 200 mg/dL 70-110 H : TESTED A T [facility] 6720 (BEAKER) (test code = [facility], 153) 737[address]: [employer]one Inspector/Techni chika ID = [id number] for QUEEN LASSITER POCT-GLUCOSE [id number] 12:11:00 Test Item Value Reference Range Interpretation Comments POC-GLUCOSE METER 180 mg/dL 70-110 H : TESTED A T [facility] 6720 (BEAKER) (test code = [facility] [place] [facility] [place], 1538) [address]87: [employer] Inspector/Techni chika ID = [id number] for SHAYY ALBRIGHT POCT-GLUCOSE [id number] 08:17:00 Test Item Value Reference Range Interpretation Comments POC-GLUCOSE METER 158 mg/dL 70-110 H : TESTED A T [facility] 6720 (BEAKER) (test code = DINA Ortega [facility], 1538) 56131: [employer] Inspector/Techni chika ID = [id number] for SHAYY ALBRIGHT CBC W/PLT COUNT & AUTO [id number] 04:14:00 Test Item Value Reference Range Interpretation [...] PERCENT (BEAKER) (test code = 2801) POCT-GLUCOSE [id number] 16:12:00 Test Item Value Reference Range Interpretation Comments POC-GLUCOSE METER 233 mg/dL 70-110 H : TESTED A T [facility] 6720 ([facility]) (test code = [facility], 153) 18152: Hat Cone Inspector/Techni chika ID = [id number] for NW ABYKU, SHAYY POCT-GLUCOSE [id number] 12:02:00 Test Item Value Reference Range Interpretation Comments POC-GLUCOSE METER 190 mg/dL 70-110 H : TESTED A T [facility] 6720 ([facility]) (test code = [facility], 153) 45250: Hat Cone Inspector/Techni chika ID = [id number] for NW AJIAKU, SHAYY STOOL CULTURE + SHIGA [id number] 09:19:00 Test Item Value Reference Range Interpretation Comments CULTURE ([facility]) No Salmonella, Shigella (test code = 1095) or Campylobacter isolated POCT-GLUCOSE [id number] 07:46:00 Test Item Value Reference Range Interpretation Comments POC-GLUCOSE METER 174 mg/dL 70-110 H : TESTED A T [facility] 6720 ([facility]) (test code = [facility], 153) 97392: [employer] Inspector/Techni chika ID = [id number] for NW AJIAKU, SHAYY CBC W/PLT COUNT & AUTO [id number] 06:53:00 Test Item Value Reference Range Interpretation [...] 0-1 PERCENT (BEAKER) (test code = 2801) [id number] 06:20:00 Test Item Value Reference Range Interpretation Comments MAGNESIUM (BEAKER) 1.7 mg/dL 1.6-2.6 Specimen slightly (test code = 627) hemolyzed [employer] Inspector ID - LATA WBASIC METABOLIC [id number] 06:20:00 Test Item Value Reference Range Interpretation [...] S NOT APPLICABLE FOR DIALYSIS PATIEN TS. [employer] Inspector ID - LATA WHEPATIC FUNCTION [id number] 06:20:00 Test Item Value Reference Range Interpretation [...] Specimen slightly (test code = 347) hemolyzed [employer] Inspector ID - LATA WPOCT-GLUCOSE [id number] 21:46:00 Test Item Value Reference Range Interpretation Comments POC-GLUCOSE METER 181 mg/dL 70-110 H : TESTED A T [facility] 6720 (BELINDA) (test code = DINA Ortega [facility], 1538) 37025: [employer] Inspector/Techni chika ID = [id number] for WADE DELATORRE, LETTYTU CT, BRAIN, WITHOUT [id number] 18:11:00FINAL REPORT CT, BRAIN, WITHOUT CONTRAST INDICATION: [...] further characterization. Signed: Wyatt Burch Verified Date/Time: 03/26/202018:11:57 POCT-GLUCOSE [id number] 17:31:00 Test Item Value Reference Range Interpretation Comments POC-GLUCOSE METER 209 mg/dL 70-110 H : Notified RN/MD: (BEAKER) (test code = TESTED AT [facility] 6720 1538) [facility], [address]: Hat Cone Inspector/Techni chika ID = [id number] for MEERA LEMOS SHIGA TOXIN [id number] 15:19:00 Test Item Value Reference Range Interpretation Comments SHIGA TOXIN 1 (BEAKER) (test Not detected Not detected code = 2177) SHIGA TOXIN 2 (BEAKER) (test Not detected Not detected code = 2179) POCT-GLUCOSE [id number] 11:53:00 Test Item Value Reference Range Interpretation Comments POC-GLUCOSE METER 159 mg/dL 70-110 H : [facility] ([facility] (test code = [facility] Jordan [facility], 1538) [address]: Hat Cone Inspector/Techni chika ID = [id number] for SANDRA HOLLIS STOOL PATH [id number] 11:36:00 Test Item Value Reference Range Interpretation Comments PATHOGEN EXAM CHARGED ([facility]) (test Done code = 2381) POCT-GLUCOSE [id number] 07:11:00 Test Item Value Reference Range Interpretation Comments POC-GLUCOSE METER 146 mg/dL 70-110 H : TESTED A T [facility] 6720 ([facility]) (test code = [facility], 1538) [address]: Hat Cone Inspector/Techni chika ID = [id number] for MILY GROVE [id number] 06:04:00 Test Item Value Reference Range Interpretation Comments MAGNESIUM (BEAKER) (test code = 1.9 mg/dL 1.6-2.6 627) Hat Cone Inspector ID - PIAYA LBASIC METABOLIC [id number] 06:04:00 Test Item Value Reference Range Interpretation [...] S NOT APPLICABLE FOR DIALYSIS PATIEN TS. Hat Cone Inspector ID - PIAYA LHEPATIC FUNCTION [id number] 06:04:00 Test Item Value Reference Range Interpretation [...] (test code = 15 U/L 6-55 347) Hat Cone Inspector ID - PITYREE LCBC W/PLT COUNT & AUTO [id number] 05:20:00 Test Item Value Reference Range Interpretation [...] PERCENT (BEAKER) (test code = 2801) POCT-GLUCOSE [id number] 21:12:00 Test Item Value Reference Range Interpretation Comments POC-GLUCOSE METER 154 mg/dL 70-110 H : TESTED A T [facility] 6720 (BEAKER) (test code = [facility], 1538) [address]: Hat Cone Inspector/Techni chika ID = [id number] for JEREMY GUPTA POCT-GLUCOSE [id number] 17:43:00 Test Item Value Reference Range Interpretation Comments POC-GLUCOSE METER 152 mg/dL 70-110 H : TESTED A T [facility] 6720 (BEAKER) (test code = [facility], 1538) [address]: Hat Cone Inspector/Techni chika ID = [id number] for PANCHO [place]YS SARS-COV2/RT-PCR ([facility])2020-03-25 13:40:00 Test Item Value Reference Range Interpretation Comments SARS-COV2/RT-PCR (test code = Negative Not Detected, Negative [id number]) SARS-COV-2 PERFORMING LAB [facility] (test code = 0239854) Negative result for this test determines that [...] individuals suspected of COVID-19 by their healthcare provider.This test [...] 564(g) of the Act.Fact Sheet for Healthcare Providers:https://www.[employer].com/sites/default/files/product/documents/Fact_Shee v_YW_Cogfpjbbs_Omkd_UHEG-SnY-2.pdfFact Sheet for Healthcare Patients:https://www.[employer].com/sites/default/files/product/ documents/Khqk_Sbanb_Nzroezsr_Tgwd_EUYG-TjI-7.pdfPerforming Laboratory:[facility], [place] [address]YUSW-[id number] METER 2020-03-25 11:24:00 Test Item Value Reference Range Interpretation Comments POC-GLUCOSE METER 165 mg/dL 70-110 H : TESTED A T [facility] 6720 (BEAKER) (test code = DINA Ortega [facility], 1538) [address]: Hat Cone Inspector/Techni chika ID = [id number] for SANDRA HOLLIS TSH/FREE T4 IF [id number] 10:59:00 Test Item Value Reference Range Interpretation Comments THYROID STIMULATING HORMONE 0.622 uIU/mL 0.350-4.940 (BEAKER) (test code = 772) Hat Cone Inspector ID - SHERINETYREE LHEMOGLOBIN [id number] 10:59:00 Test Item Value Reference Range Interpretation Comments HEMOGLOBIN A1C (BEAKER) (test code = 6.9 % 4.3-6.1 H 368) TROPONIN [id number] 10:50:00 Test Item Value Reference Range Interpretation [...] failure, acidosis, acute neurological disease, and persistent tachyarrhythmia.Hat Cone Inspector ID - PITYREE LBASIC METABOLIC [id number] 10:42:00 Test Item Value Reference Range Interpretation [...] S NOT APPLICABLE FOR DIALYSIS PATIEN TS. Hat Cone Inspector ID - WAGNER LHEPATIC FUNCTION [id number] 10:42:00 Test Item Value Reference Range Interpretation [...] (test code = 10 U/L 6-55 347) Hat Cone Inspector ID - WAGNER [id number] 10:41:00 Test Item Value Reference Range Interpretation Comments PHOSPHORUS (BEAKER) (test code = 3.2 mg/dL 2.3-4.7 604) Hat Cone Inspector ID - WAGNER [id number] 10:41:00 Test Item Value Reference Range Interpretation Comments MAGNESIUM (BEAKER) (test code = 2.0 mg/dL 1.6-2.6 627) Hat Cone Inspector ID - WAGNER LPOCT-GLUCOSE [id number] 09:10:00 Test Item Value Reference Range Interpretation Comments POC-GLUCOSE METER 116 mg/dL 70-110 H : TESTED A T [facility] 6720 (BEAKER) (test code = [place], 1538) [address]: Hat Cone Inspector/Techni chika ID = [id number] for CO ROTAN, LANCE SHAHID RAD, CHEST, 1 VIEW, NON [id number] 07:49:00Reason for exam:->chest painShould this be performed at the bedside?->YesFINAL REPORT CLINICAL HISTORY: chest pain TECHNIQUE: 1 view of the chest. COM PARISON: None IMPRESSION: There are linear bandlike opacities in the bilateral mid and lower lungs. There are no significant effusions. The cardiomediastinal silhouette is magnified by technique. Signed: Keturah Mensah MDReport Verified Date/Time: 03/25/2020 07:49:59 Reading Location: [facility] Radiology Reading Room C. DIFFICILE GDH [id number] 06:54:00 Test Item Value Reference Range Interpretation Comments CDT TOXIN (test code Negative Negative = [id number]) CDT GDH ANTIGEN (test Negative Negative No ind ication of code = [id number]) Clostridi um difficile infection and n o colonization. Discontinue ent perez isolation and t herapy. Testing performed by [employer] Rapid [employer]ette Assay. For GDH, published sensitivity of the assay is 98.7% compared to cytotoxicity testing. For Toxin AB, published sensitivity is 87.8% and specificity 99.4% compared to cytotoxicity testing.Verification of kit performance was done by the [facility] Microbiology Lab prior to clinical use.URINALYSIS WITH MICROSCOPIC IF [id number] 06:35:00 Test Item Value Reference Range Interpretation [...] = 463) SOURCE(BEAKER) (test code = 2795) Hat Cone Inspector ID - [auto]Hat Cone Inspector ID - techURINALYSIS [id number] 06:35:00 Test Item Value Reference Range Interpretation Comments RBC UA (BEAKER) (test code = 519) 3 /HPF WBC UA (BEAKER) (test code = 520) 11 /HPF BACTERIA (BEAKER) (test code = 517) Rare SQUAMOUS EPITHELIAL (BEAKER) (test 1 /HPF code = 516) Hat Cone Inspector ID - techPOCT-GLUCOSE [id number] 05:08:00 Test Item Value Reference Range Interpretation Comments POC-GLUCOSE METER 128 mg/dL 70-110 H : TESTED A T [facility] 6720 (BEAKER) (test code = [place], 1538) [address]: Hat Cone Inspector/Techni chika ID = [id number] for As Meena beckett
[2021-08-12 13:31] LABS: Absolute Lymphocytes (CBC) 1.2 K/uL (0.7-4.9); Basophils % 0.3 % (0-1.3); Hematocrit 29.2 % (36.0-45.0); Lymphocytes % 17.9 % (15.3-44.8); MPV 7.7 fL (7.6-11.3); RBC Red Blood Cell Count 4.08 M/uL (3.86-4.86)
[2021-08-12 13:35] LABS: Protime INR 1.1
[2021-08-12 14:10] LABS: ALT/SGPT 14 U/L (12-78); AST/SGOT 9 U/L (15-37); Albumin 3.2 g/dL (3.4-5.0); Alkaline Phosphatase 98 U/L (45-117); BUN Blood Urea Nitrogen 16 mg/dL (7-18); Bicarbonate 26 mmol/L (21-32); Bilirubin Direct < 0.1 mg/dL (0-0.2); Bilirubin Total 0.2 mg/dL (0.2-1.0); Glucose Level 137 mg/dL (74-106); Magnesium 2.1 mg/dL (1.8-2.4); NT PRO-BNP 809 pg/mL (<450); Potassium 3.9 mmol/L (3.5-5.1); Protein, Total 6.9 g/dL (6.4-8.2); Sodium Level 139 mmol/L (136-145); Troponin (Emerg Dept Use Only) < 0.02 ng/mL (0.0-0.045)
--- NOTE | 2021-08-12 14:12 | RAD REPORT ---
EXAM DESCRIPTION: RAD - Chest Single View - 08/12/2021 2:04 pm CLINICAL HISTORY: MALAISE COMPARISON: Chest Single View dated 02/02/2021; Chest Single View dated 03/24/2020; Chest Single View dated 09/20/2019; Abdomen 1 View (KUB) dated 07/24/2019 FINDINGS: Lines: None. Lungs: No evidence of edema or pneumonia. Increased prominence of the lung markings at the left lung base may be related to rotation. Pleural: No significant pleural effusions or pneumothorax. Cardiac: Cardiomegaly. Bones: No acute fractures. Other: IMPRESSION: Increased left basilar opacities may be secondary to rotation versus a developing infilt rate.
--- NOTE | 2021-08-12 15:00 | ER ---
Nurse's Notes [facility] [place] Name: Skylar Grossman Age: 86 yrs Sex: Female : 1935 Arrival Date: 08/12/2021 Time: 12:32 Bed 18 Private MD: Diagnosis: Syncope Near;Altered mental status, unspecified Presentation: 08/12 12:38 Chief complaint: EMS states: was sitting in a wheelchair at home and became iw unresponsive per daughter, EMS reports pt was responsive to pain only, has hx of vagal syncope, IVF initiated to RAC, given 4 ng zofran , placed on 2 L NC, was 90% on RA, pt more alert now,responds to verbal stimuli, YM=319. 12:44 Coronavirus screen: At this time, the client does not indicate any symptoms associated iw with coronavirus-19. Ebola Screen: Patient negative for fever greater than or equal to 101.5 degrees Fahrenheit, and additional compatible Ebola Virus Disease symptoms Patient denies exposure to infectious person. Patient denies travel to an Ebola-affected area in the 21 days before illness onset. No symptoms or risks identified at this time. Initial Sepsis Screen: Does the patient meet any 2 criteria? No. Patient's initial sepsis screen is negative. Does the patient have a suspected source of infection? No. Patient's initial sepsis screen is negative. Risk Assessment: Do you want to hurt yourself or someone else? Patient reports no desire to harm self or others. Onset of symptoms was August 12, 2021. 12:44 Method Of Arrival: EMS: [facility] iw 12:44 Acuity: FARIDA 2 iw Historical: - Allergies: 12:44 Codeine (Upset stomach); iw 12:44 meperidine HCl; iw 12:44 Morphine; iw - PMHx: 12:44 CVA; Dementia; Depression; Diabetes - IDDM; GERD; High Cholesterol; Hypertension; iw - Immunization history:: Adult Immunizations unknown. - Social history:: Smoking status: unknown. Screenin:03 Abuse screen: Denies threats or abuse. Nutritional screening: No deficits noted. as6 Tuberculosis screening: No symptoms or risk factors identified. Fall Risk Fall in past 12 months (25 points). Secondary diagnosis (15 points) dementia, IV access (20 points). Ambulatory Aid- None/Bed Rest/Nurse Assist (0 pts). Gait- Weak (10 pts.). Total Nettles Fall Scale indicates High Risk Score (45 or more points). Fall prevention measures have been instituted. Side Rails Up X 2 Frequent Obs/Assessments Occuring Family Present and informed to notify staff if the need to leave the bedside As available patient and family educated on Fall Prevention Program and Strategies. Assessment: 20:38 Reassessment: pt alert and answering questions appropriately, assisted pt to bathroom as6 via wheelchair, family at bedside, no distress noted, no other complaints or concerns at this time. Vital Signs: 12:44 BP 108 / 62; Pulse 54; Resp 16; Pulse Ox 98% on 2 lpm NC; iw 13:25 BP 89 / 48; Pulse 56; Resp 16; Temp 97.2; Pulse Ox 98% ; jh5 13:37 BP 118 / 68; Pulse 56; Resp 16; Pulse Ox 98% ; jh5 13:45 BP 127 / 61; Pulse 62; Resp 18; Pulse Ox 100% on 2 lpm NC; sl2 14:00 BP 114 / 58; Pulse 58; Resp 20; Temp 97.6(O); Pulse Ox 96% on 2 lpm NC; sl2 14:30 BP 134 / 72; Pulse 57; Resp 16; Pulse Ox 100% ; sl2 14:45 BP 116 / 62; Pulse 58; Resp 20; Pulse Ox 99% on 2 lpm NC; sl2 15:30 BP 157 / 69; Pulse 57; Resp 18; Pulse Ox 97% ; sl2 16:00 BP 145 / 64; Pulse 58; Resp 18; Pulse Ox 99% on R/A; sl2 16:45 BP 145 / 83; Pulse 56; Resp 18; Temp 97.8; Pulse Ox 97% on R/A; sl2 17:26 BP 159 / 110 Supine; Pulse 55; Resp 16; Pulse Ox 96% on 2 lpm NC; sl2 17:30 BP 131 / 114 Sitting; Pulse 65; Resp 16; Pulse Ox 97% on 2 lpm NC; sl2 20:00 BP 143 / 66; Pulse 65; Resp 20 S; Pulse Ox 99% on R/A; as6 ED Course: 12:32 Patient arrived in ED. iw 12:44 Triage completed. iw 13:05 Cathi Monique, JOSE EDUARDO is Primary Nurse. sl2 13:27 Mickail, Roque, PA is PHCP. [facility] 13:27 Vick Rader MD is Attending Physician. [facility] 14:04 XRAY Chest (1 view) In Process Unspecified. EDMS 14:59 Edwardo Angel MD is Hospitalizing Provider. kdr 14:[address] via stretcher. sl2 15:06 CT Head Brain wo Cont In Process Unspecified. EDMS 15:09 Patient moved back from [address]. sl2 21:05 Arm band placed on. as6 21:13 No provider procedures requiring assistance completed. Patient admitted, IV remains in as6 place. 21:14 Bed in low position. Call light in reach. Side rails up X2. Adult w/ patient. Pulse ox as6 on. NIBP on. Administered Medications: No medications were administered Outcome: 15:00 Decision to Hospitalize by Provider. kdr 21:14 Admitted to Tele accompanied by tech, family with patient, via stretcher, room 403, as6 with chart, Report called to RN 21:14 Condition: stable 21:15 Patient left the ED. as6 Signatures: Dispatcher [employer] EDME Vick Rader MD MD [facility] Roque Fermin PA PA [facility] Sheridan Tapia, RN Cathi Bolden, RN RN 2 Peace Mitchell, JOSE EDUARDO WHITT 5 Neto Andujar RN RN as6
--- NOTE | 2021-08-12 15:00 | EDPHYS ---
Physician Documentation [facility] Name: Skylar Grossman Age: 86 yrs Sex: Female : 1935 Arrival Date: 08/12/2021 Time: 12:32 Bed 18 Private MD: ED Physician Vick Rader HPI: 08/12 17:37 This 86 yrs old Female presents to ER via EMS with complaints of Syncope. kdr 17:37 The patient has experienced syncope, became unresponsive. Onset: The symptoms/episode kdr began/occurred suddenly, just prior to arrival. Duration: This was a single episode, The patient was poorly responsive until EMS arrived. There was some fluid administration oxygen, she became more responsive but still not back to baseline. In discussion with Dr. Angel, he indicated that she has had a history of orthostatic hypotension in the past. It is unclear if this was a component or contributing factor at this time.. Context: the episode(s) was witnessed, by family, sister, occurred at home, occurred while the patient was at rest, sitting, Just prior to the episode the patient experienced weakness. Associated injury: The patient did not suffer any apparent associated injury. Associated signs and symptoms: The patient has no apparent associated signs or symptoms. Current symptoms: Still some diminishment of overall mental status but the patient is responsive to voice and attempts to answer his questions. She does know that she is at the hospital and her name and is able to recall the provider's name when asked. The patient has not experienced similar symptoms in the past. The patient has not recently seen a physician. Historical: - Allergies: 12:44 Codeine (Upset stomach); iw 12:44 meperidine HCl; iw 12:44 Morphine; iw - PMHx: 12:44 CVA; Dementia; Depression; Diabetes - IDDM; GERD; High Cholesterol; Hypertension; iw - Immunization history:: Adult Immunizations unknown. - Social history:: Smoking status: unknown. ROS: 17:37 Constitutional: Negative for fever, chills, and weight loss, Eyes: Negative for injury, kdr pain, redness, and discharge, Neck: Negative for injury, pain, and swelling, Cardiovascular: Negative for chest pain, palpitations, and edema, Respiratory: Negative for shortness of breath, cough, wheezing, and pleuritic chest pain, Abdomen/GI: Negative for abdominal pain, nausea, vomiting, diarrhea, and constipation, Back: Negative for injury and pain, : Negative for injury, bleeding, discharge, and swelling, MS/Extremity: Negative for injury and deformity, Skin: Negative for injury, rash, and discoloration, Psych: Negative for depression, anxiety, suicide ideation, homicidal ideation, and hallucinations, Allergy/Immunology: Negative for hives, rash, and allergies, Endocrine: Negative for neck swelling, polydipsia, polyuria, polyphagia, and marked weight changes, Hematologic/Lymphatic: Negative for swollen nodes, abnormal bleeding, and unusual bruising. 17:44 Neuro: Positive for altered mental status, syncope, weakness. kdr Exam: 17:37 Constitutional: This is a well developed, well nourished patient who is awake, alert, kdr and in no acute distress. Head/Face: Normocephalic, atraumatic. Eyes: Pupils equal round and reactive to light, extra-ocular motions intact. Lids and lashes normal. Conjunctiva and sclera are non-icteric and not injected. Cornea within normal limits. Periorbital areas with no swelling, redness, or edema. Neck: Trachea midline, no thyromegaly or masses palpated, and no cervical lymphadenopathy. Supple, full range of motion without nuchal rigidity, or vertebral point tenderness. No Meningismus. Chest/axilla: Normal chest wall appearance and motion. Nontender with no deformity. No lesions are appreciated. Cardiovascular: Regular rate and rhythm with a normal S1 and S2. No gallops, murmurs, or rubs. Normal PMI, no JVD. No pulse deficits. Respiratory: Lungs have equal breath sounds bilaterally, clear to auscultation and percussion. No rales, rhonchi or wheezes noted. No increased work of breathing, no retractions or nasal flaring. Abdomen/GI: Soft, non-tender, with normal bowel sounds. No distension or tympany. No guarding or rebound. No evidence of tenderness throughout. Back: No spinal tenderness. No costovertebral tenderness. Full range of motion. Skin: Warm, dry with normal turgor. Normal color with no rashes, no lesions, and no evidence of cellulitis. MS/ Extremity: Pulses equal, no cyanosis. Neurovascular intact. Full, normal range of motion. Neuro: Awake and alert, GCS 15, oriented to person, place, time, and situation. Cranial nerves II-XII grossly intact. Motor strength 5/5 in all extremities. Sensory grossly intact. Cerebellar exam normal. Normal gait. Psych: Awake, alert, with orientation to person, place and time. Behavior, mood, and affect are within normal limits. 17:44 Neuro: Patient is mildly aphasic. kdr Vital Signs: 12:44 BP 108 / 62; Pulse 54; Resp 16; Pulse Ox 98% on 2 lpm NC; iw 13:25 BP 89 / 48; Pulse 56; Resp 16; Temp 97.2; Pulse Ox 98% ; jh5 13:37 BP 118 / 68; Pulse 56; Resp 16; Pulse Ox 98% ; jh5 13:45 BP 127 / 61; Pulse 62; Resp 18; Pulse Ox 100% on 2 lpm NC; sl2 14:00 BP 114 / 58; Pulse 58; Resp 20; Temp 97.6(O); Pulse Ox 96% on 2 lpm NC; sl2 14:30 BP 134 / 72; Pulse 57; Resp 16; Pulse Ox 100% ; sl2 14:45 BP 116 / 62; Pulse 58; Resp 20; Pulse Ox 99% on 2 lpm NC; sl2 15:30 BP 157 / 69; Pulse 57; Resp 18; Pulse Ox 97% ; sl2 16:00 BP 145 / 64; Pulse 58; Resp 18; Pulse Ox 99% on R/A; sl2 16:45 BP 145 / 83; Pulse 56; Resp 18; Temp 97.8; Pulse Ox 97% on R/A; sl2 17:26 BP 159 / 110 Supine; Pulse 55; Resp 16; Pulse Ox 96% on 2 lpm NC; sl2 17:30 BP 131 / 114 Sitting; Pulse 65; Resp 16; Pulse Ox 97% on 2 lpm NC; sl2 20:00 BP 143 / 66; Pulse 65; Resp 20 S; Pulse Ox 99% on R/A; as6 MDM: 15:00 Patient medically screened. kdr 17:37 Data reviewed: vital signs, nurses notes, lab test result(s), EKG, radiologic studies. kdr Counseling: I had a detailed discussion with the patient and/or guardian regarding: the historical points, exam findings, and any diagnostic results supporting the discharge/admit diagnosis, lab results, radiology results, the need for further work-up and treatment in the hospital. Physician consultation: Edwardo Angel MD regarding admission, patient's condition, and will see patient in inpatient room, tomorrow. Admission orders: after a detailed discussion of the patient's condition and case, the admit orders are written by me. 08/12 13:08 Order name: Basic Metabolic Panel; Complete Time: 14:58 iw 08/12 13:08 Order name: CBC with Diff; Complete Time: 14:58 iw 08/12 13:08 Order name: LFT's; Complete Time: 14:58 iw 08/12 13:08 Order name: Magnesium; Complete Time: 14:58 iw 08/12 13:08 Order name: NT PRO-BNP; Complete Time: 14:58 08/12 13:08 Order name: PT-INR; Complete Time: 14:58 08/12 13:08 Order name: Troponin (emerg Dept Use Only); Complete Time: 14:58 08/12 14:05 Order name: Urine Culture [facility] 08/12 14:06 Order name: Urine Culture [facility] 08/12 16:32 Order name: Basic Metabolic Panel [facility] 08/12 16:32 Order name: Basic Metabolic Panel [facility] 08/12 16:32 Order name: CBC with Automated Diff EDMS 08/12 16:32 Order name: CBC with Automated Diff EDMS 08/12 16:41 Order name: COVID-19 SARS RT PCR (Document "Date of Onset" if Symptomatic) kj1 08/12 13:08 Order name: XRAY Chest (1 view); Complete Time: 14:58 08/12 13:08 Order name: EKG; Complete Time: 13:09 iw 08/12 13:08 Order name: Cardiac monitoring; Complete Time: 13:29 iw 08/12 13:08 Order name: EKG - Nurse/Tech; Complete Time: 13:35 iw 08/12 13:08 Order name: IV Saline Lock; Complete Time: 13:29 iw 08/12 13:08 Order name: Labs collected and sent; Complete Time: 13:29 iw 08/12 13:08 Order name: O2 Per Protocol; Complete Time: 13:29 iw 08/12 13:08 Order name: O2 Sat Monitoring; Complete Time: 13:29 iw 08/12 14:04 Order name: CT Head Brain wo Cont; Complete Time: 15:36 kdr 08/12 16:32 Order name: Regular EDMS Administered Medications: No medications were administered Disposition Summary: 08/12/21 15:00 Hospitalization Ordered Hospitalization Status: Inpatient Admission kdr Provider: Edwardo Angel Location: Telemetry/MedSurg (Inpatient) kdr Condition: Fair kdr Problem: new kdr Symptoms: have improved kdr Bed/Room Type: Standard kdr Room Assignment: 403(08/12/21 20:26) mw Diagnosis - Syncope Near kdr - Altered mental status, unspecified kdr Forms: - Medication Reconciliation Form kdr - SBAR form kdr Signatures: Dispatcher [employer] EDMS Beverly Salas RN RN mw Rittger, Kevin, MD MD kdr Williams, Irene, RN RN iw Slawson, Ashby, RN RN as6 Corrections: (The following items were deleted from the chart) 16:42 16:42 SARS-COV-2 RT PCR+MOL.LAB.BRZ ordered. EDMS EDMS 17:45 17:37 Constitutional: Negative for fever, chills, and weight loss, Eyes: Negative for kdr injury, pain, redness, and discharge, Neck: Negative for injury, pain, and swelling, Cardiovascular: Negative for chest pain, palpitations, and edema, Respiratory: Negative for shortness of breath, cough, wheezing, and pleuritic chest pain, Abdomen/GI: Negative for abdominal pain, nausea, vomiting, diarrhea, and constipation, Back: Negative for injury and pain, : Negative for injury, bleeding, discharge, and swelling, MS/Extremity: Negative for injury and deformity, Skin: Negative for injury, rash, and discoloration, Neuro: Negative for headache, weakness, numbness, tingling, and seizure activity. Psych: Negative for depression, anxiety, suicide ideation, homicidal ideation, and hallucinations, Allergy/Immunology: Negative for hives, rash, and allergies, Endocrine: Negative for neck swelling, polydipsia, polyuria, polyphagia, and marked weight changes, Hematologic/Lymphatic: Negative for swollen nodes, abnormal bleeding, and unusual bruising, kdr 20:26 15:00 kdr mw
--- NOTE | 2021-08-12 15:15 | RAD REPORT ---
EXAM DESCRIPTION: CT - Head Brain Wo Cont - 08/12/2021 3:07 pm CLINICAL HISTORY: Confused;Syncope COMPARISON: Head Brain Wo Cont dated 02/10/2021; Head Brain Wo Cont dated 02/02/2021 TECHNIQUE: All CT scans are performed using dose optimization technique as appropriate and may inclu de automated exposure control or mA/KV adjustment according to patient size. FINDINGS: No intracranial hemorrhage, hydrocephalus or extra-axial fluid collection.No areas of brai n edema or evidence of midline shift. Chronic small vessel ischemic changes. Remote right basal gangl ia infarct. The paranasal sinuses and mastoids are clear. The calvarium is intact. Right frontal craniotomy. IMPRESSION: No acute intracranial abnormality.
[2021-08-12] MEDS ORDERED: ACETAMINOPHEN 500 MG TAB PO PRN (16:30)
--- NOTE | 2021-08-12 21:23 | P.SSS ---
Patient History Date of Service: 08/12/21 Reason for admission: PASSED OUT History of Present Illness: SWAPNA IS A KNOWN PATIENT WITH ORTHOSTATIC HYPOTENSION, HISTORY OF STROKE, DM. HTN. DJD WHO ONCE AGAIN HAS PASSED OUT WHILE COMMODE. SHE IS BACK TO HER BASELINE AFTER AN HOUR OR SO. SHE DENIES HEADACHES, DOUBLE VISION, WEAKNESS OR PARALYSIS. Allergies codeine [Codeine] Adverse Reaction (Intermediate, Verified 07/23/19 22:37) HEADACHE/NAUSEATED meperidine HCl [From Demerol] Adverse Reaction (Intermediate, Verified 07/23/19 22:37) DIZZINESS/NAUSEA Home Medications: Amitriptyline HCl 100 mg PO BEDTIME 05/03/19 Clopidogrel Bisulfate [Plavix*] 75 mg PO DAILY 05/03/19 Fluoxetine HCl [Prozac] 20 mg PO DAILY 05/03/19 Gabapentin 300 mg PO TID 05/03/19 Insulin Glargine,Hum.rec.anlog [Lantus Solostar] 20 units SQ BEDTIME 05/03/19 Lisinopril [Zestril] 40 mg PO BEDTIME 05/03/19 Melatonin [Melatonin*] 3 mg PO BEDTIME 05/03/19 Metformin ER [Glucophage ER*] 500 mg PO BID 05/03/19 Simvastatin 20 mg PO BEDTIME 05/03/19 cloNIDine HCL [Catapres] 0.1 mg PO TIDP PRN 05/03/19 Nebivolol HCl [Bystolic*] 10 mg PO DAILY 02/02/21 Pantoprazole Sodium [Protonix] 40 mg PO BEDTIME 02/02/21 Tamsulosin [Flomax*] 0.4 mg PO DAILY 02/02/21 lisinopriL [Prinivil*] 40 mg PO DAILY tab 02/03/21 - Past Medical/Surgical History Diabetic: Yes -: GERD -: Anxiety -: Hypertension -: CVA -: Depression -: IDDM -: Hyperlipidemia -: Cholecystectomy -: Hysterectomy -: Appendectomy - Family History Sister -: Cancer Notes: uterine Mother -: Hypertension Father -: Hypertension - Social History Alcohol use: No CD- Drugs: No Caffeine use: No Review of Systems 10-point ROS is otherwise unremarkable General: Weakness Physical Examination - Physical Exam General: Oriented x3, Oriented x2, Mild distress, Obese HEENT: Atraumatic, PERRLA, Mucous membr. moist/pink, EOMI, Sclerae nonicteric Neck: Supple, 2+ carotid pulse no bruit, No LAD, Without JVD or thyroid abnormality Respiratory: Clear to auscultation bilaterally, Normal air movement Cardiovascular: Regular rate/rhythm, Normal S1 S2 Gastrointestinal: Normal bowel sounds, No tenderness Musculoskeletal: No tenderness Integumentary: No rashes Neurological: Normal speech, Normal strength at 5/5 x4 extr, Normal tone, Normal affect, Abnormal gait (SUSY HAS NOT WALKED FOR A LONG TIME. 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 UNFORTUNATELY STRAINING ON A COMMODE POSSIBLY AGGRAVATED THE VASOVAGAL EFFECT. SHE MAY BENEFIT BY [place] TO TREAT ATYPICAL SEIZURES THAT ARE DIFFICULT TO DIAGNOSE AND EASY TO TREAT. (2) Diabetes Onset Date: 08/18/15 Current Visit: No Status: Chronic Plan: A1C IS STABLE. DONE AT OFFICE. Qualifiers: Diabetes mellitus type: type 2 (3) Orthostatic hypotension Current Visit: No Status: Chronic Plan: SHE HAS TO BE CAREFUL AND SHE HAS DONE WELL SO FAR. - Disposition Disposition: ROUTINE DISCHARGE
[2021-08-12] MEDS: NA CHLORIDE 0.9% 1,000 ML IV SCH (21:37)
[2021-08-12 22:15] VITALS: BMI 27.4
[2021-08-13] MEDS: NA CHLORIDE 0.9% 1,000 ML IV SCH (05:34)
[2021-08-13 06:33] LABS: Absolute Lymphocytes (CBC) 1.5 K/uL (0.7-4.9); Basophils % 0.4 % (0-1.3); Hematocrit 29.5 % (36.0-45.0); Lymphocytes % 23.7 % (15.3-44.8); MPV 7.6 fL (7.6-11.3); RBC Red Blood Cell Count 4.13 M/uL (3.86-4.86)
[2021-08-13 06:42] LABS: Potassium 3.5 mmol/L (3.5-5.1)
[2021-08-13] MEDS ORDERED: NA CHLORIDE 0.9% 1,000 ML IV SCH (07:19)
[2021-08-13] MEDS ORDERED: NEBIVOLOL HCL 5 MG TAB PO SCH (09:00)
[2021-08-13] MEDS ORDERED: CLOPIDOGREL 75 MG TABLET PO SCH (09:00)
[2021-08-13] MEDS ORDERED: METFORMIN ER 500 MG TAB PO SCH (09:00)
[2021-08-13] MEDS ORDERED: levETIRAcetam 500 MG TAB PO SCH (09:00)
[2021-08-13] MEDS ORDERED: MEMANTINE HCL 10 MG TABLET PO SCH (09:00)
[2021-08-13] MEDS ORDERED: FLUOXETINE 20 MG CAP PO SCH (09:00)
[2021-08-13] MEDS ORDERED: lisinopriL 20 MG TAB PO SCH ×2 (09:00→21:00)
[2021-08-13] MEDS: GABAPENTIN 300 MG CAP PO SCH ×2 (09:15→14:00)
[2021-08-13 10:25] VITALS: O2SAT 94
[2021-08-13 16:05] VITALS: BP 164/70; TEMP 97.7
[2021-08-13] MEDS ORDERED: ATORVASTATIN 10 MG TAB PO SCH (21:00)
[2021-08-13] MEDS ORDERED: INSULIN GLARGINE 100 UNIT/ML SQ SCH (21:00)
[2021-08-13] MEDS ORDERED: HOME MED 1 EA UNK (Insulin Glargine,Hum.Rec.Anlog [Lantus Solostar] 100 UNIT/ML Insuln.Pen SQ SCH (21:00)
[2021-08-13] MEDS ORDERED: MELATONIN 3 MG TABLET PO SCH (21:00)
[2021-08-13] MEDS ORDERED: HOME MED 1 EA UNK (Simvastatin [Simvastatin] 20 MG Tablet) PO SCH (21:00)
[2021-08-13] MEDS ORDERED: AMITRIPTYLINE 50 MG TAB PO SCH (21:00)
--- NOTE | 2021-08-14 12:40 | EKG ---
Test Date: 2021-08-12 Test Time: 13:33:29 Medical Esthetician: TP MEASUREMENT RESULTS: Intervals: Rate: 59 VT: 246 QRSD: 146 QT: 510 QTc: 504 [place]: P: 59 VT: 246 QRS: 32 T: 80 INTERPRETIVE STATEMENTS: Sinus bradycardia with 1st degree AV block Right bundle branch block T wave abnormality, consider lateral ischemia Abnormal ECG Compared to ECG 02/10/2021 14:29:31 First degree AV block now present T-wave abnormality now present Possible ischemia now present Atrial fibrillation no longer present Electronically Signed On 08-14-21 12:35:56 MUD LOGGER by Chintan Lopez
[2021-08-16 15:07] LABS: Urine Blood Negative (Negative); Urine Glucose Negative (Negative); Urine Protein Negative (Negative); Urine Specific Gravity 1.015 (1.005-1.030)
== END 2021-08-13 16:45 | disposition home or self-care (01) ==
LOC: ER 12:21 → ERHOLD 16:32 → 4TH 20:58
PROVIDERS: ADMIT Internal Medicine; ATTEND Internal Medicine
DX: R55 Syncope and collapse (principal); I95.1 Orthostatic hypotension; E11.9 Type 2 diabetes mellitus without complications; K21.9 Gastro-esophageal reflux disease without esophagitis; I10 Essential (primary) hypertension; Z86.73 Personal history of transient ischemic attack (TIA), and cerebral infarction without residual deficits; Z20.822 Contact with and (suspected) exposure to COVID-19
CPT/HCPCS: 93005; 85025 ×2; 87086; 80048 ×2; 36415; 83735; 85610; 80076; 81003; 84484; 82728; 83880; 70450; 71045; 99285; U0003; J7030; G0378 ×3; 87088

== ENCOUNTER 2022-02-24 16:44 | Emergency (ER) | payer MEDICARE, OTHER ==
--- OUTSIDE RECORDS SUMMARY | 2022-02-24 16:48 | XMS REPORT | Continuity of Care Document ---
:1935 Author Organization [facility] t Address [address] [place] [address] Care Team Providers Name Role Phone Jose Primary Care Physician Donovan MCINTYRE Attending Clinician Unavailable Therapy, [facility] Covid Attending Clinician Unavailable Unknown Attending Clinician Unavailable UNKNOWN Attending Clinician Unavailable Marciano WHITT, P Attending Clinician Unavailable Only, Db Test Attending Clinician Unavailable Green [employer] WORKER Attending Clinician GREEN Attending Clinician Unavailable Doctor Unassigned, Name Attending Clinician Unavailable Donovan MCINTYRE Admitting Clinician Unavailable ALBERTO Admitting Clinician Unavailable Payers Payer Name Policy Policy Number Effective Expiration Source Type Date Date MEDICARE A B [id number] 1998 00:00:00 [facility] [id number] 2019 HEALTHCARE 00:00:00 MEDICAREMEDICARE [id number] [address] [facility] ity of PART A & 00:00:00 [facility] [id number] 1998 [phone] [address]IE SOFIA [address]Medicare [facility] [id number] 2017 [facility] HEALTHCAREUNITED 00:00:00 [facility] MEDICARE [facility] h [id number] 2018-PresentP. OMeka ARAMBULA [address], [place] [address]Medicare Supplement Problems Condition Condition Condition Status Onset Resolution Last Treating Co mments Source Name Details Category Date Date Treatment Clinician Date Acute Acute Disease Active [facility] encephal[facility] encephalop 7-16 [facility] athy athy 00:00: Medical 00 Center Vasovagal Vasovagal Disease Active [facility] Colitis Colitis Disease [facility] Syncope Syncope Disease Active [facility] Pain in Pain in Disease Active Overview: Univ ers limb limb - Formattin ity of 00:00: g of this [place] note Medical might be Branch different from [...] of and and 00:00: g of this [place] radiculiti radiculiti 00 note Me dical s, s, might be Branch unspecifie unspecifie different d d from the original. Cervical radiculop athy Osteoarthr Osteoarthr Disease Active Overview : Univers itis itis 3- Formattin ity of 00:00: g of this [place] 00 note Medical might be Branch different from the original. ICD10 Diagnosis Term Clinical Nurse Specialist Utility Esophageal Esophageal Disease Active 2005-09 U nivers reflux reflux 1-15 ity of 00:00: [place] 00 Medical Branch Diabetic Diabetic Disease Active 2005-09 Overview: Un teo polyneurop polyneurop 1-15 Formattin ity of athy athy 00:00: g of this [place] 00 note Medical might be Branch different from the original. ICD10 Diagnosis Term Clinical Nurse Specialist Utility Chronic Chronic Disease Active 2005-09 Univers depressive depressive 1-15 it y of [place]it [place] y disorder 00 Me dical Branch HLD HLD Disease Active 2006-1 Overview: Univer s (hyperlipi (hyperlipi 1-15 Formattin ity of demia) demia) 00:00: g of this [place] 00 note Medical might be Branch different from the original. 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 ICD10 Diagnosis Term Clinical Nurse Specialist Utility Allergies, Adverse Reactions, Alerts Allergy Allergy Status Severity Reaction(s) Onset Inactive Treating Comm ents Source Name Type Date Date Clinician MORPHINE Allergy Active 2020-[address] [facility] Center Codeine Propensi Active 2020-[address] [facility] ty to 7-15 [facility] adverse 00:00: Medical reaction 00 Center s Meperidi Propensi Active 2020-[address] [facility] [address] ne ty to 7-15 [facility] adverse 00:00: Medical reaction 00 Center s Morphine Propensi Active 2020-[address] [facility] [address] ty to 7-15 [facility] adverse 00:00: Medical reaction 00 Center s CODEINE Allergy Active 2020-[address] [facility] 00:[facility]: Medical 00 Center MEPERIDI Allergy Active 2020-[address] [facility] 7[facility]15 [facility] 00:[facility]: Medical 00 Center MEPERIDI DRUG Active Unknown-Cmnt 2007-0 Un teo NE HCL INGREDI 3-10 ity of 00:00: [place] 00 Medical Branch Meperidi Propensi Active Unknown - 2007-0 REACTIONS Univers ne Hcl ty to See [...] NO KNOWN Allergy Active [facility] Family History Family Member Diagnosis Comments Start Date Stop Date Source Natural father High blood pressure C [facility] Social History Social Habit Start Date Stop Date Quantity Comments Source Exposure to Yes University of SARS-CoV-2 [place] Medical (event) Branch History SDOH [facility] Alcohol Std Medical Cente r Drinks History SDOH [facility] Alcohol Binge Medical Nataliia ter History SDMS [facility] Alcohol Comment Medical C enter History SDOH 2020-03-27 2020-03-[address] [facility] Alcohol Frequency 00:00:00 00:00:00 [facility] Tobacco use and 2020-03-26 2020-03-[address] [facility] [address] [facility] k[facility] exposure 00:00:00 00:00:00 [facility] Alcohol intake 2020-03-26 2020-03-[address] [facility] es 00:00:00 00:00:00 non-drinker of Medical Ce nter alcohol (finding) Sex Assigned At [address] [facility] 00:00:00 00:00:00 [facility] Smoking Status Start Date Stop Date Source Never smoker [facility] Medications Ordered Filled Start Stop Current Ordering Indication Dosage Frequency Signature Comments Components Source Medication Medication Date Date Medication? Clinician (SIG) Name Name insulin Yes 15U QD Inject 15 [facility] glargine 7[facility] U-100 nightly. INSULIN) 100 unit/mL (3 mL) InPn insulin Yes 15U QD Inject 15 [facility] glargine 7-19 Units [facility] (LANTUS 00:00: [facility] SOLOSTAR [address] [facility] Center U-100 nightly. INSULIN) 100 unit/mL (3 mL) InPn memantine No 5mg Q.5D Take 1 [facility] t (NAMENDA) 5 03-29- tablet (5 Corina kes MG tablet 00:00: 23:59 mg total) Me dical 00 :00 by mouth 2 Center (two) times daily. memantine No 5mg Q.5D Take 1 [facility] (NAMENDA) 5 7- 07-19 tablet (5 Corina kes MG tablet 00:00: 23:59 mg total) Me dical 00 :00 by mouth 2 Center (two) times daily. BYSTOLIC Yes 10mg QD Take [address] [address] mg tablet 03-19 by mouth [facility] 00:00: daily. [address] Yes 10mg QD Take [address] mg tablet 7-09 by mouth [facility] 00:00: daily. [address] simvastatin 2020-0 Yes 20mg QD Take [address] (ZOCOR) 20 5-13 by mouth [facility]ukes MG tablet 00:00: nightly. [address] tamsulosin 2020-0 Yes .4mg Take 0.[address] (FLOMAX) 5-13 mg by [facility] 0.4 mg Cap 00:00: mouth Medica l 24 hr 00 Daily [place] capsule (1800). simvastatin 2020-0 Yes 20mg QD Take [address] [address] (ZOCOR) 20 5-13 by mouth [facility]ukes MG tablet 00:00: nightly. [address] tamsulosin 2020-0 Yes .4mg Take 0.[address] (FLOMAX) 5-13 mg by [facility]ukes 0.4 mg Cap 00:00: mouth Medica l 24 hr 00 Daily [place] capsule (1800). omeprazole 2020-0 Yes 20mg QD Take [address] (PRILOSEC) 5-04 by mouth [facility] 20 MG 00:00: daily. [address] omeprazole 2020-0 Yes 20mg QD Take [address] (PRILOSEC) 5-04 by mouth [facility] 20 MG 00:00: daily. [address] fLUoxetine 2019-0 Yes 20mg QD Take [address] (PROZAC) 20 8-23 by mouth Luke s MG capsule 00:00: daily. Medic al [address] [place] [address] melatonin 3 2018-0 Yes 3mg QD Take [address] mg Tab 8-23 by mouth [facility]ukes tablet 00:00: nightly. [address] fLUoxetine 2019-0 Yes 20mg QD Take [address] (PROZAC) 20 8-23 by mouth Luke s MG capsule 00:00: daily. Medic al [address] [place] [address] melatonin 3 2018-0 Yes 3mg QD Take [address] mg Tab 8-23 by mouth [facility] tablet 00:00: nightly. [address] PEPCID 20 2017-0 Yes prn Univers MG ORAL TAB 6-11 ity of 04:52: [address] B COMPLEX 1 2017- Yes None Univer s ORAL TAB 6-11 Entered ity of 04:52: [address] Branch M-VIT ORAL 2017-0 Yes None Univers 6-11 Entered ity of 04:52: [address] PEPCID 20 Yes prn Univers MG ORAL TAB 6-11 ity of 04:52: [address] COMPLEX 1 Yes None Univer s ORAL TAB 6-11 Entered ity of 04:52: [address] M-VIT ORAL Yes None Univers 6-11 Entered ity of 04:52: [address] PEPCID 20 Yes prn Univers MG ORAL TAB 6-11 ity of 04:52: [address] COMPLEX 1 Yes None Univer s ORAL TAB 6-11 Entered ity of 04:52: [address] M-VIT ORAL Yes None Univers 6-11 Entered ity of 04:52: [address] 20 Yes prn Univers MG ORAL TAB 6-11 ity of 04:52: [address] 1 Yes None Univer s ORAL TAB 6-11 Entered ity of 04:52: [address] M-VIT ORAL Yes None Univers 6-11 Entered ity of 04:52: [address] 20 Yes prn Univers MG ORAL TAB 6-10 ity of 23:52: [address] 1 Yes None Univer s ORAL TAB 6-10 Entered ity of 23:52: [address] M-VIT ORAL Yes None Univers 6-10 Entered ity of 23:52: [address] 20 Yes prn Univers MG ORAL TAB 6-10 ity of 23:52: [address] 1 Yes None Univer s ORAL TAB 6-10 Entered ity of 23:52: [address] M-VIT ORAL Yes None Univers 6-10 Entered ity of 23:52: [address] lisinopriL 2014-09 Yes 40mg Take [address] (PRINIVIL,Z 2-21 by mouth Luke s ESTRIL) 40 00:00: Daily Medica l MG tablet 00 (1800). [place] lisinopriL 2014-09 Yes 40mg Take [address] (PRINIVIL,Z 2-21 by mouth Luke s ESTRIL) 40 00:00: Daily Medica l MG tablet 00 (1800). [place] PROTONIX 40 2008-0 Yes [id number] 1 tab PO Univers MG ORAL 4-01 daily ity of TBEC 00:00: [place] 00 [facility] PROTONIX 40 2008-0 Yes [id number] 1 tab PO Univers MG ORAL 4-01 daily ity of TBEC 00:00: [place] 00 [facility] PROTONIX 40 2008-0 Yes [id number] 1 tab PO Univers MG ORAL 4-01 daily ity of TBEC 00:00: [place] [facility] PROTONIX 40 2008-0 Yes [id number] 1 tab PO Univers MG ORAL 4-01 daily ity of TBEC 00:00: [place] [facility] PROTONIX 40 2008-0 Yes [id number] 1 tab PO Univers MG ORAL 4-01 daily ity of TBEC 00:00: [place] [facility] PROTONIX 40 2008-0 Yes [id number] 1 tab PO Univers MG ORAL 4-01 daily ity of TBEC 00:00: [place] [facility] ENALAPRIL 2009-0 Yes [id number] 1 tab po Univers MALEATE 20 1-15 BID ity of MG ORAL TAB 00:00: [place] 00 [facility] ENALAPRIL 2009-0 Yes [id number] 1 tab po Univers MALEATE 20 1-15 BID ity of MG ORAL TAB 00:00: [place] 00 [facility] ENALAPRIL 2009-0 Yes [id number] 1 tab po Univers MALEATE 20 1-15 BID ity of MG ORAL TAB 00:00: [place] 00 [facility] ENALAPRIL 2009-0 Yes [id number] 1 tab po Univers MALEATE 20 1-15 BID ity of MG ORAL TAB 00:00: [place] 00 [facility] ENALAPRIL 2009-0 Yes [id number] 1 tab po Univers MALEATE 20 1-15 BID ity of MG ORAL TAB 00:00: [place] 00 [facility] ENALAPRIL 2009-0 Yes [id number] 1 tab po Univers MALEATE 20 1-15 BID ity of MG ORAL TAB 00:00: [place] 00 [facility] HYDROCHLORO 2008-1 Yes [id number] take 1 po Univers THIAZIDE 25 0-30 daily ity of MG ORAL TAB 00:00: [place] 00 [facility] HYDROCHLORO 2008-1 Yes [id number] take 1 po Univers THIAZIDE 25 0-30 daily ity of MG ORAL TAB 00:00: [place] 00 Medical Branch HYDROCHLORO 2007-09 Yes [id number] take 1 po Univers THIAZIDE 25 0-30 daily ity of MG ORAL TAB 00:00: Medical Branch HYDROCHLORO 2007-09 Yes [id number] take 1 po Univers THIAZIDE 25 0-30 daily ity of MG ORAL TAB 00:00: Medical Branch HYDROCHLORO 2007-09 Yes [id number] take 1 po Univers THIAZIDE 25 0-30 daily ity of MG ORAL TAB 00:00: Medical Branch HYDROCHLORO 2007-09 Yes [id number] take 1 po Univers THIAZIDE 25 0-30 daily ity of MG ORAL TAB 00:00: Medical Branch GLIPIZIDE 5 Yes tske 2 tab Univers MG ORAL TAB 9 qam and 1 ity of 00:00: tab qpm Medical Branch GLIPIZIDE 5 Yes tske 2 tab Univers MG ORAL TAB 05-20 qam and 1 ity of 00:00: tab qpm Medical Branch GLIPIZIDE 5 Yes tske 2 tab Univers MG ORAL TAB 05-20 qam and 1 ity of 00:00: tab qpm Medical Branch GLIPIZIDE 5 Yes tske 2 tab Univers MG ORAL TAB 05-20 qam and 1 ity of 00:00: tab qpm Medical Branch GLIPIZIDE 5 Yes tske 2 tab Univers MG ORAL TAB 9 qam and 1 ity of 00:00: tab qpm Medical Branch GLIPIZIDE 5 Yes tske 2 tab Univers MG ORAL TAB 9 qam and 1 ity of 00:00: tab qpm Medical Branch ATENOLOL Yes [id number] one tab po Univers 100 MG ORAL 8-27 daily ity of TAB 00:00: Medical Branch NORCO Yes 1 tab po Univers 7.5-325 MG 8-27 TID ity of ORAL TAB 00:00: Medical Branch AMITRIPTYLI Yes 2 tabs QHS Univers NE 50 MG 8-27 ity of ORAL TAB 00:00: Medical Branch METFORMIN Yes [id number] 1 tab PO Univers 850 MG ORAL 8-27 TID ity of TAB 00:00: Medical Branch CLONIDINE Yes [id number] take 1 po Univers 0.2 MG ORAL 8-27 qid for 1 ity of TAB 00:00: week, then [place] 00 tid for 1 Medical week, then Branch bid and prn thereafter PRAVASTATIN Yes [id number] take 1 po Univers 40 MG ORAL 8-27 qhs ity of TAB 00:00: [place] [facility] ATENOLOL Yes [id number] one tab po Univers 100 MG ORAL 8-27 daily ity of TAB 00:00: [place] [facility] NORCO Yes 1 tab po Univers 7.5-325 MG 8-27 TID ity of ORAL TAB 00:00: Medical Branch AMITRIPTYLI Yes 2 tabs QHS Univers NE 50 MG 8-27 ity of ORAL TAB 00:00: [place] [facility] METFORMIN Yes [id number] 1 tab PO Univers 850 MG ORAL 8-27 TID ity of TAB 00:00: [place] [facility] CLONIDINE Yes [id number] take 1 po Univers 0.2 MG ORAL 8-27 qid for 1 ity of TAB 00:00: week, then [place] 00 tid for 1 Medical week, then Branch bid and prn thereafter PRAVASTATIN Yes [id number] take 1 po Univers 40 MG ORAL 8-27 qhs ity of TAB 00:00: [place] [facility] ATENOLOL Yes [id number] one tab po Univers 100 MG ORAL 8-27 daily ity of TAB 00:00: [place] [facility] NORCO Yes 1 tab po Univers 7.5-325 MG 8-27 TID ity of ORAL TAB 00:00: [place] [facility] AMITRIPTYLI Yes 2 tabs QHS Univers NE 50 MG 8-27 ity of ORAL TAB 00:00: [place] [facility] METFORMIN Yes [id number] 1 tab PO Univers 850 MG ORAL 8-27 TID ity of TAB 00:00: [place] [facility] CLONIDINE Yes [id number] take 1 po Univers 0.2 MG ORAL 8-27 qid for 1 ity of TAB 00:00: week, then [place] 00 tid for 1 Medical week, then Branch bid and prn thereafter PRAVASTATIN Yes [id number] take 1 po Univers 40 MG ORAL 8-27 qhs ity of TAB 00:00: [place] [facility] ATENOLOL Yes [id number] one tab po Univers 100 MG ORAL 8-27 daily ity of TAB 00:00: Medical Branch NORCO Yes 1 tab po Univers 7.5-325 MG 8-27 TID ity of ORAL TAB 00:00: Medical Branch AMITRIPTYLI Yes 2 tabs QHS Univers NE 50 MG 8-27 ity of ORAL TAB 00:00: Medical Branch METFORMIN Yes [id number] 1 tab PO Univers 850 MG ORAL 8-27 TID ity of TAB 00:00: Medical Branch CLONIDINE Yes [id number] take 1 po Univers 0.2 MG ORAL 8-27 qid for 1 ity of TAB 00:00: week, then [place] 00 tid for 1 Medical week, then Branch bid and prn thereafter PRAVASTATIN Yes [id number] take 1 po Univers 40 MG ORAL 8-27 qhs ity of TAB 00:00: Medical Branch ATENOLOL Yes [id number] one tab po Univers 100 MG ORAL 8-27 daily ity of TAB 00:00: Medical Branch NORCO Yes 1 tab po Univers 7.5-325 MG 8-27 TID ity of ORAL TAB 00:00: Medical Branch AMITRIPTYLI Yes 2 tabs QHS Univers NE 50 MG 8-27 ity of ORAL TAB 00:00: Medical Branch METFORMIN Yes [id number] 1 tab PO Univers 850 MG ORAL 8-27 TID ity of TAB 00:00: Medical Branch CLONIDINE Yes [id number] take 1 po Univers 0.2 MG ORAL 8-27 qid for 1 ity of TAB 00:00: week, then [place] 00 tid for 1 Medical week, then Branch bid and prn thereafter PRAVASTATIN Yes [id number] take 1 po Univers 40 MG ORAL 8-27 qhs ity of TAB 00:00: Medical Branch ATENOLOL Yes [id number] one tab po Univers 100 MG ORAL 8-27 daily ity of TAB 00:00: Medical Branch NORCO Yes 1 tab po Univers 7.5-325 MG 8-27 TID ity of ORAL TAB 00:00: Medical Branch AMITRIPTYLI 2007- Yes 2 tabs QHS Univers NE 50 MG 8-27 ity of ORAL TAB 00:00: Medical Branch METFORMIN 2007-0 Yes [id number] 1 tab PO Univers 850 MG ORAL 8-27 TID ity of TAB 00:00: Medical Branch CLONIDINE 2007- Yes [id number] take 1 po Univers 0.2 MG ORAL 8-27 qid for 1 ity of TAB 00:00: week, then tid for 1 Medical week, then Branch bid and prn thereafter PRAVASTATIN Yes [id number] take 1 po Univers 40 MG ORAL 8-27 qhs ity of TAB 00:00: Medical Branch CLONIDINE 2007- Yes [id number] 1 tab tid Univers 0.3 MG ORAL 4-30 and prn ity o f TAB 00:00: Medical Branch CLONIDINE 2007- Yes [id number] 1 tab tid Univers 0.3 MG ORAL 4-30 and prn ity o f TAB 00:00: Medical Branch CLONIDINE 2007- Yes [id number] 1 tab tid Univers 0.3 MG ORAL 4-30 and prn ity o f TAB 00:00: Medical Branch CLONIDINE 2007- Yes [id number] 1 tab tid Univers 0.3 MG ORAL 4-30 and prn ity o f TAB 00:00: Medical Branch CLONIDINE 2007- Yes [id number] 1 tab tid Univers 0.3 MG ORAL 4-30 and prn ity o f TAB 00:00: Medical Branch CLONIDINE 2007- Yes [id number] 1 tab tid Univers 0.3 MG ORAL 4-30 and prn ity o f TAB 00:00: Medical Branch ASPIRIN 325 2006- Yes [id number] 1 tab U nivers MG ORAL TAB 0-04 daily ity of 00:00: Medical Branch ASPIRIN 325 2006- Yes [id number] 1 tab U nivers MG ORAL TAB 0-04 daily ity of 00:00: Medical Branch ASPIRIN 325 2006- Yes [id number] 1 tab U nivers MG ORAL TAB 0-04 daily ity of 00:00: Medical Branch ASPIRIN 325 2006- Yes [id number] 1 tab U nivers MG ORAL TAB 0-04 daily ity of 00:00: [place] [facility] ASPIRIN 325 2006- Yes [id number] 1 tab U nivers MG ORAL TAB 0-04 daily ity of 00:00: [place] [facility] ASPIRIN 325 2006- Yes [id number] 1 tab U nivers MG ORAL TAB 0-04 daily ity of 00:00: [place] 00 [facility] Immunizations Ordered Filled Immunization Date Status Comments Sour e Immunization Name Name Influenza Virus 2007-06-20 Completed Universit y of Vaccine 00:00:00 [facility] Influenza Virus 2007-06-20 Completed Universit y of Vaccine 00:00:00 [facility] Influenza Virus 2007-06-20 Completed Universit y of Vaccine 00:00:00 [facility] Influenza Virus 2007-06-20 Completed Universit y of Vaccine 00:00:00 [facility] Influenza Virus 2007-06-20 Completed Universit y of Vaccine 00:00:00 [facility] Influenza Virus 2007-06-20 Completed Universit y of Vaccine 00:00:00 [facility] Influenza Virus 2006-07-26 Completed Universit y of Vaccine 00:00:00 [facility] Influenza Virus 2006-07-26 Completed Universit y of Vaccine 00:00:00 [facility] Influenza Virus 2006-07-26 Completed Universit y of Vaccine 00:00:00 [facility] Influenza Virus 2006-07-26 Completed Universit y of Vaccine 00:00:00 [facility] Influenza Virus 2006-07-26 Completed Universit y of Vaccine 00:00:00 [facility] Influenza Virus 2006-07-26 Completed Universit y of Vaccine 00:00:00 [facility] Vital Signs Vital Name Observation Time Observation Value Comments Source WEIGHT 2020-03-24 00:00:00 76.658 kg Systolic blood 2021-05-11 01:25:00 156 mm[Hg] Univer sity of pressure [facility] Diastolic blood 2021-05-11 01:25:00 77 mm[Hg] Unive rsity of pressure [facility] Heart rate 2021-05-11 01:25:00 65 /min Universi ty of [facility] Body temperature 2021-05-11 01:25:00 36.94 [facility] ersity of [facility] Respiratory rate 2021-05-11 01:25:00 18 /min [facility] Oxygen saturation in 2021-05-11 01:25:00 96 /min [facility] Arterial blood by [facility] Pulse oximetry Branch Body weight 2021-05-10 12:50:[address] [facility] WEIGHT 2020-03-24 00:00:00 76.658 kg Procedures Procedure Date / Time Performed Performing Clinician Sour e ASSIGNMENT OF BENEFITS 2021-05-07 21:31:03 Doctor Unassigned, No [facility] Plan of Care Planned Activity Planned Date Details Comments Source Future Scheduled 2021-05-12 INFLUENZA VACCINE (#1) [facility] 00:00:00 [code = INFLUENZA Medical Ce nter VACCINE (#1)] Future Scheduled 2021-05-12 INFLUENZA VACCINE (#1) [facility] 00:00:00 [code = INFLUENZA Medical Ce nter VACCINE (#1)] Future Scheduled 2020-09-[address] [facility] [address] [facility] Test 00:00:00 measurement Medical Center (procedure) [code = 56129987] Future Scheduled 2020-09-[address] [facility] [address] [facility] Test 00:00:00 measurement Medical Center (procedure) [code = 25249979] Future Scheduled 2020-09-[address] [facility] Test 00:00:00 (12+) [code = Medical Center DEPRESSION SCREENING (12+)] Future Scheduled 2020-09-11 FALLS RISK SCREENING [facility] Test 00:00:00 [code = FALLS RISK Medical C enter SCREENING] Future Scheduled 2020-09-[address] [facility] Test 00:00:00 (12+) [code = Medical Center DEPRESSION SCREENING (12+)] Future Scheduled 2020-09-11 FALLS RISK SCREENING [facility] Test 00:00:00 [code = FALLS RISK Medical C enter SCREENING] Future Scheduled 2002 PNEUMOCOCCAL 65+ YRS [facility] Test 00:00:00 (1 of 1 - Medical Center [id number]) [code = PNEUMOCOCCAL 65+ YRS (1 of 1 - [id number])] Future Scheduled 2002 PNEUMOCOCCAL 65+ YRS [facility] Test 00:00:00 (1 of 1 - Medical Center [id number] PCV13) [code = PNEUMOCOCCAL 65+ YRS (1 of 1 - [id number] PCV13)] Future Scheduled 1999-11-[address] [facility] Test 00:00:00 WELLNESS (YEAR 2 or Medical Center FIRST YEAR if no IPPE) [code = MEDICARE ANNUAL WELLNESS (YEAR 2 or FIRST YEAR if no IPPE)] Future Scheduled 1999-11-[address] [facility] Test 00:00:00 WELLNESS (YEAR 2 or Medical Center FIRST YEAR if no IPPE) [code = MEDICARE ANNUAL WELLNESS (YEAR 2 or FIRST YEAR if no IPPE)] Future Scheduled 1987 SHINGLES VACCINES ([address] [facility] Test 00:00:00 of 2) [code = SHINGLES Medic al Center VACCINES (1 of 2)] Future Scheduled 1987 SHINGLES VACCINES ([address] [facility] Test 00:00:00 of 2) [code = SHINGLES Medic al Center VACCINES (1 of 2)] Future Scheduled 1956 DTAP/TDAP/TD VACCINES [facility] 00:00:00 (1 - Tdap) [code = Medical C enter DTAP/TDAP/TD VACCINES (1 - Tdap)] Future Scheduled 1956 DTAP/TDAP/TD VACCINES [facility] Test 00:00:00 (1 - Tdap) [code = Medical C enter DTAP/TDAP/TD VACCINES (1 - Tdap)] Future Scheduled 1949 COVID-19 VACCINE (1) [facility] Test 00:00:00 [code = COVID-[address] VACCINE (1)] Future Scheduled 1949 COVID-19 VACCINE (1) [facility] Test 00:00:00 [code = COVID-[address] VACCINE (1)] Future Scheduled [address] EYE EXAM [facility] Test 00:00:00 [code = DIABETIC EYE Medical Center EXAM] Future Scheduled 1947 Urine screening for [facility] Test 00:00:00 protein (procedure) Medical Center [code = 376323394] Future Scheduled 1947 DIABETIC EYE EXAM [facility] Test 00:00:00 [code = DIABETIC EYE Medical Center EXAM] Future Scheduled 1947 Urine screening for [facility] Test 00:00:00 [facility] (procedure) [facility] [code = 319921691] Encounters Start End Encounter Admission Attending Care Care Encounter Source Date/Time Date/Time Type Type Clinicians Facility Department ID 2020-03-24 [id number] 62 [facility] 23:52:00 JUAQUIN Med 2021-05-10 2021-05-10 Nurse Therapy, Kevin Manley [facility] [id number]. [id number] Univers 19:27:33 20:27:33 Visit Unknown, [facility] [id number] ity [facility] [id number] Shawn as Terrell?Blea [id number] [address] Medical Office [facility] 2021-05-10 2021-05-[address] [facility] [id number] Univers 19:30:00 19:30:00 [id number] ity Formerly [facility] 2021-05-10 2021-05-10 Outpatient R UNKNOWN, [facility] [id number] Univers 19:30:00 19:30:00 ATTENDING ity Formerly [facility] 2021-05-09 2021-05-09 Telephone TRENT Tariq [id number] Univers 00:00:00 00:00:00 Gessica P RAYA 350.1.13.10 ity [facility] 4.2.7.2.686 Shawn as [phone] [address] 2021-05-07 2021-05-07 Laboratory Only, Ang Db Test [facility] 1.2.8 40.114 [id number] Univers 17:11:44 17:31:44 Only [employer] 350.1.13.10 ity of [place] 4.2.7.2.686 Shawn as Terrell?Blea [phone] [address] Medical Office [facility] 2021-05-07 2021-05-[address] [facility] [id number] Univers 17:15:00 17:15:00 [id number] ity Formerly [facility] 2021-05-07 2021-05-[address] [facility] [id number] Univers 17:15:00 17:15:00 [facility] 2021-05-07 2021-05-[address] [facility] [id number] [facility] 16:20:00 16:20:00 JUD ity Formerly [facility] 2021-05-07 2021-05-07 Orders Doctor TRENT [id number] Univers 00:00:00 00:00:00 Only Unassigned, RAYA 350.1.13.10 ity of [place] [facility] 4.2.7.2.686 Shawn as [phone] [address] Results Test Description Test Time Test Comments Results Result Comments Source POCT-GLUCOSE METER 2020-03-29 11:32:00 Test Item Value Reference Range Interpretation Comme nts POC-GLUCOSE METER (BEAKER) 235 mg/dL 70-110 H : TESTED AT [facility] [address] [facility] (test code = 1538) [facility], [address]: Manager Paid/Techni chika ID = [id number] for ROSA ISELAQUEEN POCT-GLUCOSE [id number] 07:37:00 Test Item Value Reference Range Interpretation Comments POC-GLUCOSE METER 190 mg/dL 70-110 H : TESTED A T [facility] [address] (BEAKER) (test code = DINA Ortega [facility], 1538) [address]: Manager Paid/Techni chika ID = [id number] for LOYDA GRIMMQUEEN DAVIS CBC W/PLT COUNT & AUTO [id number] 06:10:00 Test Item Value Reference Range Interpretation [...] PERCENT (BEAKER) (test code = 2801) POCT-GLUCOSE [id number] 22:16:00 Test Item Value Reference Range Interpretation Comments POC-GLUCOSE METER 275 mg/dL 70-110 H : TESTED A T [facility] [address] (BEAKER) (test code = [facility], 1538) [address]: Manager Paid/Techni chika ID = [id number] for IDANIA MARCOS YRIS POCT-GLUCOSE [id number] 16:44:00 Test Item Value Reference Range Interpretation Comments POC-GLUCOSE METER 200 mg/dL 70-110 H : TESTED A T [facility] 67[address] (BEAKER) (test code = [facility], 1538) [address]: Manager Paid/Techni chika ID = [id number] for QUEEN LASSITER POCT-GLUCOSE [id number] 12:11:00 Test Item Value Reference Range Interpretation Comments POC-GLUCOSE METER 180 mg/dL 70-110 H : TESTED A T [facility] 6720 (BEAKER) (test code = [facility], 1538) [address]: Manager Paid/Techni chika ID = [id number] for SHAYY ALBRIGHT POCT-GLUCOSE [id number] 08:17:00 Test Item Value Reference Range Interpretation Comments POC-GLUCOSE METER 158 mg/dL 70-110 H : TESTED A T [facility] 6720 (BEAKER) (test code = [facility], 1538) [address]: Manager Paid/Techni chika ID = [id number] for SHAYY ALBRIGHT CBC W/PLT COUNT & AUTO [id number] 04:14:00 Test Item Value Reference Range Interpretation [...] PERCENT (BEAKER) (test code = 2801) POCT-GLUCOSE [id number] 16:12:00 Test Item Value Reference Range Interpretation Comments POC-GLUCOSE METER 233 mg/dL 70-110 H : TESTED A T [facility] 6720 (BEAKER) (test code = [facility], 1538) 12[address]: Manager Paid/Techni chika ID = [id number] for NW SHAYY ALEXANDER POCT-GLUCOSE [id number] 12:02:00 Test Item Value Reference Range Interpretation Comments POC-GLUCOSE METER 190 mg/dL 70-110 H : TESTED A T [facility] 6720 (BEAKER) (test code = [facility], 1538) [address]: Manager Paid/Techni chika ID = [id number] for NW PHILL ALEXANDEROMA STOOL CULTURE + SHIGA [id number] 09:19:00 Test Item Value Reference Range Interpretation Comments CULTURE (BEAKER) No Salmonella, Shigella (test code = 1095) or Campylobacter isolated POCT-GLUCOSE [id number] 07:46:00 Test Item Value Reference Range Interpretation Comments POC-GLUCOSE METER 174 mg/dL 70-110 H : TESTED A T [facility] 6720 (BEAKER) (test code = [facility], 1538) [address]: Manager Paid/Techni chika ID = [id number] for SHAYY ALBRIGHT CBC W/PLT COUNT & AUTO [id number] 06:53:00 Test Item Value Reference Range Interpretation [...] 0-1 PERCENT (BEAKER) (test code = 2801) [id number] 06:20:00 Test Item Value Reference Range Interpretation Comments MAGNESIUM (BEAKER) 1.7 mg/dL 1.6-2.6 Specimen slightly (test code = 627) hemolyzed Manager Paid ID - LATA WBASIC METABOLIC [id number] 06:20:00 Test Item Value Reference Range Interpretation [...] S NOT APPLICABLE FOR DIALYSIS PATIEN TS. Manager Paid ID Suman GUIDO WHEPATIC FUNCTION [id number] 06:20:00 Test Item Value Reference Range Interpretation [...] Specimen slightly (test code = 347) hemolyzed Manager Paid ID - LATA WPOCT-GLUCOSE [id number] 21:46:00 Test Item Value Reference Range Interpretation Comments POC-GLUCOSE METER 181 mg/dL 70-110 H : TESTED A T [facility] 6720 (BEAKER) (test code = DINA Jordan [facility], 1538) [address]: Manager Paid/Techni chika ID = [id number] for JEREMY GUPTA CT, BRAIN, WITHOUT [id number] 18:11:00FINAL REPORT CT, BRAIN, WITHOUT CONTRAST INDICATION: [...] recommended for further characterization. Signed: Wyatt Burch MDRort Verified Date/Time: 03/26/202018:11:57 POCT-GLUCOSE [id number] 17:31:00 Test Item Value Reference Range Interpretation Comments POC-GLUCOSE METER 209 mg/dL 70-110 H : Notified RN/MD: (BEAKER) (test code = TESTED AT [facility] 6720 1538) [facility], [address]: Manager Paid/Techni chika ID = [id number] for MEERA LEMOS SHIGA TOXIN [id number] 15:19:00 Test Item Value Reference Range Interpretation Comments SHIGA TOXIN 1 (BEAKER) (test Not detected Not detected code = 2177) SHIGA TOXIN 2 (BEAKER) (test Not detected Not detected code = 2179) POCT-GLUCOSE [id number] 11:53:00 Test Item Value Reference Range Interpretation Comments POC-GLUCOSE METER 159 mg/dL 70-110 H : [facility]) (test code = [facility], 1538) [address]: Manager Paid/Techni chika ID = [id number] for SANDRA HOLLIS STOOL PATH [id number] 11:36:00 Test Item Value Reference Range Interpretation Comments PATHOGEN EXAM CHARGED ([facility]) (test Done code = 2381) POCT-GLUCOSE [id number] 07:11:00 Test Item Value Reference Range Interpretation Comments POC-GLUCOSE METER 146 mg/dL 70-110 H : TESTED A T [facility] 67[address] ([facility]) (test code = [facility], 1538) [address]: Manager Paid/Techni chika ID = [id number] for MILY GROVE [id number] 06:04:00 Test Item Value Reference Range Interpretation Comments MAGNESIUM (BEAKER) (test code = 1.9 mg/dL 1.6-2.6 627) Manager Paid ID - PIAYA LBASIC METABOLIC [id number] 06:04:00 Test Item Value Reference Range Interpretation [...] S NOT APPLICABLE FOR DIALYSIS PATIEN TS. Manager Paid ID - PITYREE LHEPATIC FUNCTION [id number] 06:04:00 Test Item Value Reference Range Interpretation [...] (test code = 15 U/L 6-55 347) Manager Paid JAIME EDWARD LCBC W/PLT COUNT & AUTO [id number] 05:20:00 Test Item Value Reference Range Interpretation [...] PERCENT (BEAKER) (test code = 2801) POCT-GLUCOSE [id number] 21:12:00 Test Item Value Reference Range Interpretation Comments POC-GLUCOSE METER 154 mg/dL 70-110 H : TESTED Lilli Mendez [facility] 6720 (BEAKER) (test code = [facility] [place] [place], 1538) [address]: Manager Paid/Techni chika ID = [id number] for JEREMY GUPTA POCT-GLUCOSE [id number] 17:43:00 Test Item Value Reference Range Interpretation Comments POC-GLUCOSE METER 152 mg/dL 70-110 H : TESTED A T [facility] 6720 ([place]) (test code = [facility] [place], 1538) [address]: Manager Paid/Techni chika ID = [id number] for PANCHO [place]YS SARS-COV2/RT-PCR ([facility])2020-03-25 13:40:00 Test Item Value Reference Range Interpretation Comments SARS-COV2/RT-PCR (test code = Negative Not Detected, Negative 0389359) SARS-COV-2 PERFORMING LAB [facility] (test code = 5474007) Negative result for this test determines that [...] 564(g) of the Act.Fact Sheet for Healthcare Providers:https://www.[employer]ail [employer]/sites/default/files/product/documents/Fact_Shee x_HI_Dnfephxjh_Oaox_KZTL-MpO-3.pdfFact Sheet for Healthcare Patients:https://www.[employer]/sites/default/files/product/ documents/Jnek_Bmoam_Gsybmtrn_Yssj_GNKP-RuY-1.pdfPerforming Laboratory:[facility], [place] [address]AWBL-RAGRDIN METER 2020-03-25 11:24:00 Test Item Value Reference Range Interpretation Comments POC-GLUCOSE METER 165 mg/dL 70-110 H : TESTED A T [facility] 6720 (BEAKER) (test code = DINA Ortega [facility], 1538) [address]: Manager Paid/Techni chika ID = [id number] for SANDRA HOLLIS TSH/FREE T4 IF [id number] 10:59:00 Test Item Value Reference Range Interpretation Comments THYROID STIMULATING HORMONE 0.622 uIU/mL 0.350-4.940 (BEAKER) (test code = 772) Manager Paid ID - WAGNER LHEMOGLOBIN [id number] 10:59:00 Test Item Value Reference Range Interpretation Comments HEMOGLOBIN A1C (BEAKER) (test code = 6.9 % 4.3-6.1 H 368) TROPONIN [id number] 10:50:00 Test Item Value Reference Range Interpretation [...] failure, acidosis, acute neurological disease, and persistent tachyarrhythmia.Manager Paid ID - PIAYA LBASIC METABOLIC [id number] 10:42:00 Test Item Value Reference Range Interpretation [...] S NOT APPLICABLE FOR DIALYSIS PATIEN TS. Manager Paid ID - WAGNER EPATIC FUNCTION [id number] 10:42:00 Test Item Value Reference Range Interpretation [...] (test code = 10 U/L 6-55 347) Manager Paid ID - WAGNER [id number] 10:41:00 Test Item Value Reference Range Interpretation Comments PHOSPHORUS (BEAKER) (test code = 3.2 mg/dL 2.3-4.7 604) Manager Paid ID - WAGNER [id number] 10:41:00 Test Item Value Reference Range Interpretation Comments MAGNESIUM (BEAKER) (test code = 2.0 mg/dL 1.6-2.6 627) Manager Paid ID - WAGNER PLUNKETTOCT-GLUCOSE [id number] 09:10:00 Test Item Value Reference Range Interpretation Comments POC-GLUCOSE METER 116 mg/dL 70-110 H : TESTED A T [facility] 6720 (BEAKER) (test code = DINA Ortega [facility], 1538) [address]: Manager Paid/Techni chika ID = [id number] for LANCE TRACEY RAD, CHEST, 1 VIEW, NON [id number] 07:49:00Reason for exam:->chest painShould this be performed at the bedside?->YesFINAL REPORT CLINICAL HISTORY: chest pain TECHNIQUE: 1 view of the chest. COM PARISON: None IMPRESSION: There are linear bandlike opacities in the bilateral mid and lower lungs. There are no significant effusions. The cardiomediastinal silhouette is magnified by technique. Signed: Keturah Mensah MDReport Verified Date/Time: 03/25/2020 07:49:59 Reading Location: [facility] Radiology Reading Room C. DIFFICILE GDH [id number] 06:54:00 Test Item Value Reference Range Interpretation Comments CDT TOXIN (test code Negative Negative = 1725393351) CDT GDH ANTIGEN (test Negative Negative No ind ication of code = 2837093702) Clostridi um difficile infection and n o colonization. Discontinue ent perez isolation and t herapy. Testing performed by [employer] Rapid Cassette Assay. For GDH, published sensitivity of the assay is 98.7% compared to cytotoxicity testing. For Toxin AB, published sensitivity is 87.8% and specificity 99.4% compared to cytotoxicity testing.Verification of kit performance was done by the [facility] prior to clinical use.URINALYSIS WITH MICROSCOPIC IF [id number] 06:35:00 Test Item Value Reference Range Interpretation [...] = 463) SOURCE(BEAKER) (test code = 2795) Manager Paid ID - [auto]Manager Paid ID - techURINALYSIS [id number] 06:35:00 Test Item Value Reference Range Interpretation Comments RBC UA (BEAKER) (test code = 519) 3 /HPF WBC UA (BEAKER) (test code = 520) 11 /HPF BACTERIA (BEAKER) (test code = 517) Rare SQUAMOUS EPITHELIAL (BEAKER) (test 1 /HPF code = 516) Manager Paid ID - techPOCT-GLUCOSE [id number] 05:08:00 Test Item Value Reference Range Interpretation Comments POC-GLUCOSE METER 128 mg/dL 70-110 H : TESTED A T [facility] 6720 (BEAKER) (test code = [facility] [place], 1538) [address]: Manager Paid/Techni chika ID = [id number] for As Meena beckett
[2022-02-24 17:20] LABS: Urine Blood Trace-intact (Negative); Urine Glucose Negative (Negative); Urine Protein Negative (Negative); Urine pH 5.5 (5.0-7.0)
[2022-02-24] MEDS ORDERED: HYDRALAZINE HCL 20 MG/ML VIAL ONE (17:25)
[2022-02-24 17:29] LABS: Absolute Lymphocytes (CBC) 2.2 K/uL (0.7-4.9); Hematocrit 30.7 % (36.0-45.0); Lymphocytes % 40.5 % (15.3-44.8); MPV 7.7 fL (7.6-11.3); RBC Red Blood Cell Count 4.18 M/uL (3.86-4.86)
[2022-02-24 17:36] LABS: ALT/SGPT 15 U/L (12-78); AST/SGOT 5 U/L (15-37); Albumin 3.7 g/dL (3.4-5.0); Alkaline Phosphatase 92 U/L (45-117); BUN Blood Urea Nitrogen 25 mg/dL (7-18); Bicarbonate 26 mmol/L (21-32); Bilirubin Total 0.2 mg/dL (0.2-1.0); Glomerular Filtration Rate 61 ml/min (=/>90); Glucose Level 122 mg/dL (74-106); Magnesium 2.2 mg/dL (1.8-2.4); NT PRO-BNP 301 pg/mL (<450); Potassium 4.3 mmol/L (3.5-5.1); Protein, Total 7.4 g/dL (6.4-8.2); Sodium Level 133 mmol/L (136-145); Troponin High Sensitivity 5.1 pg/mL (<58.9)
[2022-02-24 17:37] LABS: Bilirubin Direct < 0.1 mg/dL (0-0.2)
--- NOTE | 2022-02-24 17:43 | RAD REPORT ---
EXAM DESCRIPTION: RAD - Chest Single View - 02/24/2022 5:22 pm CLINICAL HISTORY: weakness COMPARISON: Chest Single View dated 08/12/2021; Chest Single View dated 02/02/2021; Chest Single View dated 03/24/2020; Chest Single View dated 09/20/2019 FINDINGS: Lines: None. Lungs: No evidence of edema or pneumonia. Pleural: No significant pleural effusions or pneumothorax. Cardiac: The heart size is within normal limits. Bones: No acute fractures. Other: Torturous/ectatic thoracic aorta. IMPRESSION: No acute cardiopulmonary disease.
[2022-02-24 18:10] LABS: Urine Bacteria <20 /HPF (<20); Urine Mucus 1+ /HPF (NONE SEEN); Urine RBC <5 /HPF (NONE SEEN)
[2022-02-24] MEDS ORDERED: CEFTRIAXONE 1000 MG/VIAL ONE (18:22)
[2022-02-24] MEDS ORDERED: NA CHLORIDE 0.9% 250 ML ONE (18:24)
--- NOTE | 2022-02-24 19:14 | RAD REPORT ---
EXAM DESCRIPTION: CT - Head Brain Wo Cont - 02/24/2022 7:00 pm CLINICAL HISTORY: Weakness COMPARISON: <Comparisons> TECHNIQUE: All CT scans are performed using dose optimization technique as appropriate and may inclu de automated exposure control or mA/KV adjustment according to patient size. FINDINGS: No intracranial hemorrhage, hydrocephalus or extra-axial fluid collection.No areas of brai n edema or evidence of midline shift. A right basal ganglia lacunar infarct. Chronic small vessel isc hemic changes. Cerebral atrophy. The paranasal sinuses and mastoids are clear. The calvarium is intact. IMPRESSION: No acute intracranial abnormality.
--- NOTE | 2022-02-24 19:39 | ER ---
Nurse's Notes [facility] Name: Skylar Grossman Age: 86 yrs Sex: Female : 1935 Arrival Date: 02/24/2022 Time: 16:45 Bed 14 Private MD: Diagnosis: Dehydration;UTI/ Urinary tract infection, site not specified Presentation: 02/24 16:49 Chief complaint: EMS states: pts sister called stating that the pt wasn't feeling tw2 herself today. she wouldn't check her blood sugar and wouldn't talk if you didn't talk to her. noticed this today. BGL 133 m/dL. pt answers appropriately but just feels tired. 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 sister states she is note eating. pt is hypertensive at 180/90. Coronavirus screen: At this time, the client does not indicate any symptoms associated with coronavirus-19. Ebola Screen: Patient denies travel to an Ebola-affected area in the 21 days before illness onset. Initial Sepsis Screen: Does the patient meet any 2 criteria? No. Patient's initial sepsis screen is negative. Does the patient have a suspected source of infection? No. Patient's initial sepsis screen is negative. Risk Assessment: Do you want to hurt yourself or someone else? Patient reports no desire to harm self or others. Note provider notified of pts BP. Onset of symptoms was February 24, 2022. 16:49 Method Of Arrival: EMS: [facility] tw2 16:49 Acuity: FARIDA 2 tw2 16:55 Note provider at bedside at this time. tw2 Triage Assessment: 16:49 General: Appears in no apparent distress. Behavior is calm, cooperative, appropriate tw2 for age. Pain: Denies pain. Neuro: Cruz Agitation-Sedation Scale (RASS): -1 Drowsy Level of Consciousness is awake, alert, obeys commands, Oriented to person, place, situation. Cardiovascular: Patient's skin is warm and dry. Respiratory: Airway is patent Respiratory effort is even, unlabored, Respiratory pattern is regular, symmetrical. GI: No signs and/or symptoms were reported involving the gastrointestinal system. Derm: Skin is fragile, is thin, Skin is dry, Skin temperature is warm. Musculoskeletal: Range of motion: intact in all extremities. Historical: - Allergies: 16:55 Codeine (Upset stomach); tw2 16:55 meperidine HCl; tw2 16:55 Morphine; tw2 - Home Meds: 16:55 amitriptyline 25 mg Oral tab once daily [Active]; Bystolic 10 mg Oral tab once daily tw2 [Active]; Flomax 0.4 mg Oral cp24 1 cap once daily [Active]; fluoxetine 20 mg Oral tab 1 tab once daily [Active]; gabapentin 300 mg Oral cap 1 cap 3 times per day [Active]; Humalog Sub-Q [Active]; Plavix 75 mg Oral tab 1 tab once daily [Active]; metformin 500 mg Oral tab 1 tab 2 times per day [Active]; Prilosec 20 mg Oral cpDR 1 cap once daily [Active]; memantine 5 mg Oral tab 1 tabs 2 times per day [Active]; melatonin 3 mg Oral tab nightly [Active]; Lantus 100 unit/mL Sub-Q soln 15 unit nightly [Active]; 17:39 lisinopril 40 mg Oral tab 1 tab once daily [Active]; omeprazole 20 mg Oral cpDR 1 cap tw2 once daily [Active]; simvastatin 20 mg Oral tab 1 tab once daily [Active]; tamsulosin 0.4 mg oral cap 1 cap once daily [Active]; - PMHx: 16:55 Depression; Diabetes - IDDM; GERD; High Cholesterol; Hypertension; Dementia; CVA; tw2 - Immunization history:: Adult Immunizations. - Social history:: Smoking status: . Screenin:33 Abuse screen: Denies threats or abuse. Nutritional screening: No deficits noted. tw2 Tuberculosis screening: No symptoms or risk factors identified. Fall Risk Secondary diagnosis (15 points) impaired mobility. Assessment: 17:34 Reassessment: see triage assessment. tw2 17:57 Reassessment: Patient appears in no apparent distress at this time. No changes from tw2 previously documented assessment. Patient and/or family updated on plan of care and expected duration. Pain level reassessed. Patient is alert, oriented x 3, equal unlabored respirations, skin warm/dry/pink. 18:22 Reassessment: pts sister at bedside requesting if possible to be able to go home by tw2 dark as she doesn't drive at dark. provider notified. 18:27 Reassessment: provider at bedside at this time. tw2 Vital Signs: 16:49 BP 207 / 89; Pulse 53; Resp 16; Temp 97.9(TE); Pulse Ox 98% on R/A; tw2 17:56 BP 179 / 74; Pulse 60; Resp 16; Pulse Ox 99% on R/A; tw2 18:25 BP 140 / 77; Pulse 64; Resp 17; Pulse Ox 98% on R/A; tw2 18:45 BP 191 / 61; Pulse 63; Resp 17; Pulse Ox 98% on R/A; tw2 ED Course: 16:45 Patient arrived in ED. tw2 16:45 Bed in low position. Call light in reach. Side rails up X2. monitoring manager on. Pulse tw2 ox on. NIBP on. Warm blanket given. 16:49 Roque Fermin PA is PHCP. [facility] 16:49 Barak Walker DO is Attending Physician. [facility] 16:49 Zuleika Delgado, RN is Primary Nurse. tw2 16:54 Triage completed. tw2 16:54 Arm band placed on. tw2 17:24 XRAY Chest (1 view) In Process Unspecified. EDMS 17:25 SARS-COV-2 RT PCR (Document "Date of Onset" if Symptomatic) Sent. zm 17:52 Urine Microscopic Only Sent. bh1 17:52 Urine Culture Sent. 1 19:02 Head Brain Wo Cont In Process Unspecified. EDMS 20:30 No provider procedures requiring assistance completed. IV discontinued, intact, ll3 bleeding controlled, No redness/swelling at site. Pressure dressing applied. Administered Medications: 17:25 Drug: hydrALAZINE 10 mg {Note: bp 204/97 R arm HR 49.} Route: IVP; Site: left tw2 antecubital; 18:18 Drug: Rocephin (cefTRIAXone) 1 grams Route: IV; Rate: calculated rate; Site: left tw2 antecubital; 18:25 Drug: NS 0.9% 250 ml Route: IV; Rate: bolus; Site: left antecubital; tw2 Medication: 17:35 VIS not applicable for this client. tw2 Outcome: 19:39 Discharge ordered by . kristen 20:30 Discharged to home via wheelchair, with family. ll3 20:30 Condition: stable 20:30 Discharge instructions given to crusher supervisor, Instructed on discharge instructions, follow up and referral plans. medication usage, Demonstrated understanding of instructions, follow-up care, medications, Prescriptions given X 1. 20:31 Patient left the ED. ll3 Signatures: Dispatcher [employer] EDMS Roque Fermin PA PA jmm Wise, Tara, RN RN tw2 Monica Wheeler RN RN ll3 Linn Lopez Barbara RN RN 1
--- NOTE | 2022-02-24 19:39 | EDPHYS ---
Physician Documentation [facility] Name: Skylar Grossman Age: 86 yrs Sex: Female : 1935 Arrival Date: 02/24/2022 Time: 16:45 Bed 14 Private MD: ED Physician Barak Walker HPI: 02/24 18:37 This 86 yrs old Female presents to ER via EMS with complaints of weakness. [facility] 18:37 The patient's problem is reported as weakness. The symptoms are alleviated by. This is jmm an 86 year old female with a history of depression, dm, hlp, htn that presents to the ED with complaints of weakness per sister. patient has not been talking as much to her today. patient denies weakness, shortness of breath, chest pain, abdominal pain, vomiting, diarrhea, dysuria. . Historical: - Allergies: 16:55 Codeine (Upset stomach); tw2 16:55 meperidine HCl; tw2 16:55 Morphine; tw2 - Home Meds: 16:55 amitriptyline 25 mg Oral tab once daily [Active]; Bystolic 10 mg Oral tab once daily tw2 [Active]; Flomax 0.4 mg Oral cp24 1 cap once daily [Active]; fluoxetine 20 mg Oral tab 1 tab once daily [Active]; gabapentin 300 mg Oral cap 1 cap 3 times per day [Active]; Humalog Sub-Q [Active]; Plavix 75 mg Oral tab 1 tab once daily [Active]; metformin 500 mg Oral tab 1 tab 2 times per day [Active]; Prilosec 20 mg Oral cpDR 1 cap once daily [Active]; memantine 5 mg Oral tab 1 tabs 2 times per day [Active]; melatonin 3 mg Oral tab nightly [Active]; Lantus 100 unit/mL Sub-Q soln 15 unit nightly [Active]; 17:39 lisinopril 40 mg Oral tab 1 tab once daily [Active]; omeprazole 20 mg Oral cpDR 1 cap tw2 once daily [Active]; simvastatin 20 mg Oral tab 1 tab once daily [Active]; tamsulosin 0.4 mg oral cap 1 cap once daily [Active]; - PMHx: 16:55 Depression; Diabetes - IDDM; GERD; High Cholesterol; Hypertension; Dementia; CVA; tw2 - Immunization history:: Adult Immunizations. - Social history:: Smoking status: . ROS: 18:37 Constitutional: Negative for fever, chills, and weight loss, Cardiovascular: Negative [facility] for chest pain, palpitations, and edema, Respiratory: Negative for shortness of breath, cough, wheezing, and pleuritic chest pain, Abdomen/GI: Negative for abdominal pain, nausea, vomiting, diarrhea, and constipation. 18:37 All other systems are negative. Exam: 18:37 Constitutional: This is a well developed, well nourished patient who is awake, alert, jmm and in no acute distress. Head/Face: atraumatic. Eyes: EOMI, no conjunctival erythema appreciated 18:37 Neck: Trachea midline, Supple Chest/axilla: Normal chest wall appearance and motion. 18:37 Respiratory: Normal respirations, no respiratory distress appreciated Abdomen/GI: Non distended, soft Back: Normal ROM Skin: General appearance color normal MS/ Extremity: Moves all extremities, no obvious deformities appreciated, no edema noted to the lower extremities Neuro: Awake and alert 18:37 ENT: Mouth: Oral mucosa: dry. 18:37 Cardiovascular: Rate: normal, Rhythm: regular. 18:37 Respiratory: the patient does not display signs of respiratory distress, Respirations: normal, Breath sounds: are clear throughout. 18:37 Abdomen/GI: Inspection: abdomen appears normal, Bowel sounds: normal, Palpation: abdomen is soft and non-tender, in all quadrants. Vital Signs: 16:49 BP 207 / 89; Pulse 53; Resp 16; Temp 97.9(TE); Pulse Ox 98% on R/A; tw2 17:56 BP 179 / 74; Pulse 60; Resp 16; Pulse Ox 99% on R/A; tw2 18:25 BP 140 / 77; Pulse 64; Resp 17; Pulse Ox 98% on R/A; tw2 18:45 BP 191 / 61; Pulse 63; Resp 17; Pulse Ox 98% on R/A; tw2 MDM: 16:52 Patient medically screened. [facility] 19:37 Data reviewed: vital signs, nurses notes. Counseling: I had a detailed discussion with [facility] the patient and/or guardian regarding: the historical points, exam findings, and any diagnostic results supporting the discharge/admit diagnosis, lab results, radiology results, the need for outpatient follow up, to return to the emergency department if symptoms worsen or persist or if there are any questions or concerns that arise at home. 02/24 16:51 Order name: Basic Metabolic Panel; Complete Time: 17:44 [facility] 02/24 16:51 Order name: CBC with Diff; Complete Time: 18:04 [facility] 02/24 16:51 Order name: LFT's; Complete Time: 17:44 [facility] 02/24 16:51 Order name: Magnesium; Complete Time: 17:44 [facility] 02/24 16:51 Order name: NT PRO-BNP; Complete Time: 17:44 [facility] 02/24 16:51 Order name: PT-INR; Complete Time: 17:44 [facility] 02/24 16:51 Order name: Troponin HS; Complete Time: 17:44 [facility] 02/24 16:51 Order name: XRAY Chest (1 view); Complete Time: 17:44 [facility] 02/24 16:52 Order name: SARS-COV-2 RT PCR (Document "Date of Onset" if Symptomatic); Complete Time: [facility] 18:11 02/24 17:21 Order name: Urine Dipstick-Ancillary; Complete Time: 17:44 [facility] 02/24 17:45 Order name: Urine Microscopic Only; Complete Time: 18:11 [facility] 02/24 17:45 Order name: Urine Culture [facility] 02/24 18:13 Order name: CT Head Brain wo Cont [facility] 02/24 18:17 Order name: Head Brain Wo Cont; Complete Time: 19:20 [facility] 02/24 16:51 Order name: EKG; Complete Time: 16:52 [facility] 02/24 16:51 Order name: Cardiac monitoring; Complete Time: 17:17 [facility] 02/24 16:51 Order name: EKG - Nurse/Tech; Complete Time: 17:17 [facility] 02/24 16:51 Order name: IV Saline Lock; Complete Time: 17:17 [facility] 02/24 16:51 Order name: Labs collected and sent; Complete Time: 17:17 [facility] 02/24 16:51 Order name: O2 Per Protocol; Complete Time: 17:17 [facility] 02/24 16:51 Order name: O2 Sat Monitoring; Complete Time: 17:17 [facility] 02/24 16:51 Order name: Urine Dipstick-Ancillary (obtain specimen); Complete Time: 17:25 [facility] Administered Medications: 17:25 Drug: hydrALAZINE 10 mg {Note: bp 204/97 R arm HR 49.} Route: IVP; Site: left tw2 antecubital; 18:18 Drug: Rocephin (cefTRIAXone) 1 grams Route: IV; Rate: calculated rate; Site: left tw2 antecubital; 18:25 Drug: NS 0.9% 250 ml Route: IV; Rate: bolus; Site: left antecubital; tw2 Disposition: 19:48 Co-signature as Attending Physician, Barak Walker DO I was immediately available on-site ms3 in the Emergency Department for consultation in the care of the patient.. Disposition Summary: 02/24/22 19:39 Discharge Ordered Location: Home [facility] Condition: Stable [facility] Diagnosis - Dehydration [facility] - UTI/ Urinary tract infection, site not specified [facility] Followup: [facility] - With: Private Physician - When: 2 - 3 days - Reason: Recheck today's complaints, Continuance of care, Re-evaluation by your physician Discharge Instructions: - Discharge Summary Sheet [facility] - Dehydration, Elderly jm - Urinary Tract Infection, Adult [facility] Forms: - Medication Reconciliation Form [facility] - Thank You Letter [facility] - Antibiotic Education [facility] - Prescription Opioid Use [facility] Prescriptions: - Cephalexin 500 mg Oral Capsule - take 1 capsule by ORAL route every 8 hours for 10 days; 30 capsule; Refills: 0, [facility] Product Selection Permitted Signatures: Dispatcher [employer] Roque Benitez PA PA jmm Wise, Tara, RN RN tw2 Barak Walker DO DO ms3
[2022-02-24 20:35] VITALS: TEMP 97.9
[2022-02-24 20:39] VITALS: O2SAT 98
[2022-02-24 20:40] VITALS: BP 191/61
--- NOTE | 2022-02-26 08:57 | EKG ---
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
== END 2022-02-24 20:31 | disposition home or self-care (01) ==
LOC: ER 16:44
DX: E86.0 Dehydration (principal); N39.0 Urinary tract infection, site not specified; I10 Essential (primary) hypertension; E11.9 Type 2 diabetes mellitus without complications; F03.90 Unspecified dementia, unspecified severity, without behavioral disturbance, psychotic disturbance, mood disturbance, and anxiety; Z79.4 Long term (current) use of insulin; Z79.01 Long term (current) use of anticoagulants; Z20.822 Contact with and (suspected) exposure to COVID-19; Z86.73 Personal history of transient ischemic attack (TIA), and cerebral infarction without residual deficits; Z88.5 Allergy status to narcotic agent; Z88.8 Allergy status to other drugs, medicaments and biological substances
CPT/HCPCS: 93005; 87088; 85025; 87086; 80048; 36415; 83735; 85610; 80076; 84484; 83880; 70450; 71045; 96375; 96374; 99284; U0003; J0360; J7050; 81003; 81015

== ENCOUNTER 2022-03-06 15:40 | Emergency (ER) | payer OTHER ==
--- OUTSIDE RECORDS SUMMARY | 2022-03-06 15:43 | XMS REPORT | Continuity of Care Document ---
:1935 Author Organization [facility] t Address [address] [place] [address] Care Team Providers Name Role Phone Jose Primary Care Physician Donovan MCINTYRE Attending Clinician Unavailable Therapy, [facility] Covid Attending Clinician Unavailable Unknown Attending Clinician Unavailable UNKNOWN Attending Clinician Unavailable Marciano WHITT, P Attending Clinician Unavailable Only, Db Test Attending Clinician Unavailable Toma MUCK OPERATOR Attending Clinician TOMA Attending Clinician Unavailable Doctor Unassigned, Name Attending Clinician Unavailable Donovan MCINTYRE Admitting Clinician Unavailable ALBERTO Admitting Clinician Unavailable Payers Payer Name Policy Policy Number Effective Expiration Source Type Date Date MEDICARE A B [id number] 1998 00:00:00 [id number] 2019 HEALTHCARE 00:00:00 MEDICAREMEDICARE [id number] 1998 [facility] ity of PART A & 00:00:00 [facility] [id number] 1998 [phone] [address]FIA [address]Medicare [facility] [id number] 2017 [place] o f HEALTHCAREUNITED 00:00:00 [place] Me dical HEALTHCARE MEDICARE Branc h [id number] 2018-Present[address] [address]FO[place]I, [place] [address]Medicare Supplement Problems Condition Condition Condition [...] Disease Active Overview: Univ ers limb limb 3- Formattin ity of 00:00: g of this [place] 00 note Medical might be Branch different from the original. 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 Right Neuralgia, Neuralgia, Disease Active Overview : Univers neuritis, neuritis, 12-04 Formattin i ty of and and 00:00: g of this [place] radiculiti radiculiti 00 note Me dical s, s, might be Branch unspecifie unspecifie different d d from the original. Cervical radiculop athy Osteoarthr Osteoarthr Disease Active Overview : Univers itis itis 3-26 Formattin ity of 00:00: g of this [place] 00 note Medical might be Branch different from the original. ICD10 Diagnosis Term Seal Mixer Utility Esophageal Esophageal Disease Active 2005-09 U nivers reflux reflux 1-15 ity of 00:00: [place] 00 Medical Branch Diabetic Diabetic Disease Active 2005-09 Overview: Un teo polyneurop polyneurop 1-15 Formattin ity of athy athy 00:00: g of this [place] 00 note Medical might be Branch different from the original. ICD10 Diagnosis Term Seal Mixer Utility Chronic Chronic Disease Active 2005-09 Univers depressive depressive 1-15 it y of personalit personalit [place] disorder y disorder 00 Me dical Branch HLD HLD Disease Active 2005-09 Overview: Univer s (hyperlipi (hyperlipi 1-15 Formattin ity of demia) demia) 00:00: g of this [place] 00 note Medical might be Branch different from the original. 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 ICD10 Diagnosis Term Seal Mixer Utility Allergies, Adverse Reactions, Alerts Allergy Allergy Status Severity Reaction(s) Onset Inactive Treating Comm ents Source Name Type Date Date Clinician Morphine Propensi Active 2020-[address] [facility] [address] [facility] adverse 00:[facility]: Medical reaction 00 Center s CODEINE Allergy Active 2020-[address] [facility] [address] [facility] Medical [facility] Center MEPERIDI Allergy Active 2020-[address] [facility] [facility] 7[facility]15 [facility] 00[facility] Medical 00 Center MORPHINE Allergy Active 2020-[address] [facility] [facility] 00[facility] Medical 00 Center Codeine Propensi Active 2020-[address] [facility] [facility] to 7-15 [facility] adverse 00:00: Medical reaction 00 Center s Meperidi Propensi Active 2020-[address] ne ty to 7-15 [facility] adverse 00:00: Medical reaction 00 Center s MEPERIDI DRUG Active Unknown-Cmnt 2007- Un teo NE HCL INGREDI 3-10 ity [...] Natural father High blood pressure [facility] Social History Social Habit Start Date Stop Date Quantity Comments Source Exposure to Yes University of SARS-CoV-2 [place] Medical (event) Branch History SDOH [facility] Alcohol Std Medical Cente r Drinks History SDOH [facility] Alcohol Binge Medical Nataliia ter History SDOH [facility] Alcohol Comment Medical C enter History SDOH 2020-03-27 2020-03-[address] [facility] Alcohol Frequency 00:00:00 00:00:00 [facility] Tobacco use and 2020-03-26 2020-03-[address] [facility] exposure 00:00:00 00:00:00 [facility] Alcohol intake 2020-03-26 2020-03-[address] [facility] es 00:00:00 00:00:00 non-drinker of Medical Ce nter alcohol (finding) Sex Assigned At [address] [facility] 00:00:00 00:00:00 [facility] Smoking Status Start Date Stop Date Source Never smoker [facility] Medications Ordered Filled Start Stop Current Ordering Indication Dosage Frequency Signature Comments Components Source Medication Medication Date Date Medication? Clinician (SIG) Name Name insulin Yes 15U QD Inject 15 [facility] glargine 7-19 Units [facility] (LANTUS 00:00: [facility] SOLOSTAR [address] [facility] Center U-100 nightly. INSULIN) 100 unit/mL (3 mL) In insulin Yes 15U QD Inject 15 [facility] glargine 7-19 [facility] (LANTUS 00:00: [facility] SOLOSTAR [address] [facility] Center U-100 nightly. INSULIN) 100 unit/mL (3 mL) In memantine No 5mg Q.5D Take 1 [facility] (NAMENDA) 5 7-29 03-19 tablet (5 [facility] MG tablet 00:00: 23:59 mg total) Me dical 00 :00 by mouth 2 Center (two) times daily. memantine No 5mg Q.5D Take 1 [facility] (NAMENDA) 5 7- 07-19 tablet (5 [facility]es MG tablet 00:00: 23:59 mg total) Me dical 00 :00 by mouth 2 Center (two) times daily. [facility] Yes 10mg QD Take [address] mg tablet 7- by mouth [facility] 00:00: daily. [address] Yes 10mg QD Take [address] mg tablet 7-09 by mouth [facility] 00:00: daily. [address] simvastatin 2020-0 Yes 20mg QD Take [address] (ZOCOR) 20 5-13 by mouth [facility]ukes MG tablet 00:00: nightly. [address] tamsulosin 2020-0 Yes .4mg Take 0.[address] (FLOMAX) 5-13 mg by [facility] 0.4 mg Cap 00:00: mouth Medica l 24 hr 00 Daily Carmen capsule (1800). simvastatin 2020-0 Yes 20mg QD Take [address] (ZOCOR) 20 5-13 by mouth [facility] MG tablet 00:00: nightly. [address] tamsulosin 2020-0 Yes .4mg Take 0.[address] (FLOMAX) 5-13 mg by [facility]ukes 0.4 mg Cap 00:00: mouth Medica l 24 hr 00 Daily Center capsule (1800). omeprazole 2020-0 Yes 20mg QD Take [address] (PRILOSEC) 5-04 by mouth [facility]ukes 20 MG 00:00: daily. [address] omeprazole 2020-0 Yes 20mg QD Take [address] (PRILOSEC) 5-04 by mouth [facility]ukes 20 MG 00:00: daily. [address] fLUoxetine 2019-0 Yes 20mg QD Take [address] (PROZAC) 20 8-23 by mouth Luke s MG capsule 00:00: daily. Medic al [address] [place] [address] melatonin 3 2018-0 Yes 3mg QD Take [address] mg Tab 8-23 by mouth [facility] tablet 00:00: nightly. [address] fLUoxetine 2019-0 Yes 20mg QD Take [address] (PROZAC) 20 8-23 by mouth Luke s MG capsule 00:00: daily. Medic al [address] [place] [address] melatonin 3 2018-0 Yes 3mg QD Take [address] mg Tab 8-23 by mouth [facility] tablet 00:00: nightly. [address] PEPCID 20 Yes prn Univers MG ORAL TAB 6-11 ity of 04:52: [address] B COMPLEX 1 Yes None Univer s ORAL TAB 6-11 Entered ity of 04:52: [address] M-VIT ORAL 2017- Yes None Univers 6-11 Entered ity of 04:52: [address] PEPCID 20 Yes prn Univers MG ORAL TAB 6-11 ity of 04:52: [address] COMPLEX 1 Yes None Univer s ORAL TAB 6-11 Entered ity of 04:52: [address] M-VIT ORAL Yes None Univers 6-11 Entered ity of 04:52: [address] 20 Yes prn Univers MG ORAL TAB 6-11 ity of 04:52: [address] COMPLEX 1 Yes None Univer s ORAL TAB 6-11 Entered ity of 04:52: [address] M-VIT ORAL Yes None Univers 6-11 Entered ity of 04:52: [address] 20 Yes prn Univers MG ORAL TAB 6-11 ity of 04:52: [address] 1 Yes None Univer s ORAL TAB 6-11 Entered ity of 04:52: [address] M-VIT ORAL Yes None Univers 6-11 Entered ity of 04:52: [address] 20 Yes prn Univers MG ORAL TAB 6-10 ity of 23:52: [address] 1 Yes None Univer s ORAL TAB 6-10 Entered ity of 23:52: [address] M-VIT ORAL Yes None Univers 6-10 Entered ity of 23:52: [address] 20 Yes prn Univers MG ORAL TAB 6-10 ity of 23:52: [address] 1 Yes None Univer s ORAL TAB 6-10 Entered ity of 23:52: [address] M-VIT ORAL Yes None Univers 6-10 Entered ity of 23:52: [address] lisinopriL 2014-09 Yes 40mg Take [address] (PRINIVIL,Z 2-21 by mouth Luke s ESTRIL) 40 00:00: Daily Medica l MG tablet 00 (1800). Carmen lisinopriL 2014-09 Yes 40mg Take [address] (PRINIVIL,Z 2-21 by mouth Luke s ESTRIL) 40 00:00: Daily Medica l MG tablet 00 (1800). Carmen PROTONIX 40 2008-0 Yes [id number] 1 tab PO Univers MG ORAL 4-01 daily ity of TBEC 00:00: [place] 00 [facility] Branch PROTONIX 40 2008-0 Yes [id number] 1 tab PO Univers MG ORAL 4-01 daily ity of TBEC 00:00: [place] 00 [facility] PROTONIX 40 2008-0 Yes [id number] 1 tab PO Univers MG ORAL 4-01 daily ity of TBEC 00:00: [place] [facility] PROTONIX 40 2008-0 Yes [id number] 1 tab PO Univers MG ORAL 4-01 daily ity of TBEC 00:00: [place] [facility] PROTONIX 40 2008-0 Yes [id number] 1 tab PO Univers MG ORAL 4-01 daily ity of TBEC 00:00: [place] [facility] PROTONIX 40 2008-0 Yes [id number] 1 tab PO Univers MG ORAL 4-01 daily ity of TBEC 00:00: [place] 00 [facility] ENALAPRIL 2009-0 Yes [id number] 1 tab po Univers MALEATE 20 1-15 BID ity of MG ORAL TAB 00:00: [place] 00 [facility] ENALAPRIL 2009-0 Yes [id number] 1 tab po Univers MALEATE 20 1-15 BID ity of MG ORAL TAB 00:00: [place] 00 [facility] ENALAPRIL 2009-0 Yes [id number] 1 tab po Univers MALEATE 20 1-15 BID ity of MG ORAL TAB 00:00: [place] 00 [facility] Branch ENALAPRIL 2009-0 Yes [id number] 1 tab po Univers MALEATE 20 1-15 BID ity of MG ORAL TAB 00:00: [place] 00 [facility] Branch ENALAPRIL 2009-0 Yes [id number] 1 tab po Univers MALEATE 20 1-15 BID ity of MG ORAL TAB 00:00: [place] 00 [facility] ENALAPRIL 2009-0 Yes [id number] 1 tab po Univers MALEATE 20 1-15 BID ity of MG ORAL TAB 00:00: [place] 00 [facility] HYDROCHLORO 2008-1 Yes [id number] take 1 po Univers THIAZIDE 25 0-30 daily ity of MG ORAL TAB 00:00: [place] 00 [facility] HYDROCHLORO 2008-1 Yes [id number] take 1 po Univers THIAZIDE 25 0-30 daily ity of MG ORAL TAB 00:00: [place] 00 [facility] HYDROCHLORO 2008-1 Yes [id number] take 1 po Univers THIAZIDE 25 0-30 daily ity of MG ORAL TAB 00:00: Medical Branch HYDROCHLORO 2007-09 Yes [id number] take 1 po Univers THIAZIDE 25 0-30 daily ity of MG ORAL TAB 00:00: Medical Branch HYDROCHLORO 2007-09 Yes [id number] take 1 po Univers THIAZIDE 25 0-30 daily ity of MG ORAL TAB 00:00: Medical Branch HYDROCHLORO 2007-09 Yes [id number] take 1 po Univers THIAZIDE 25 0-30 daily ity of MG ORAL TAB 00:00: Medical Branch GLIPIZIDE 5 Yes tske 2 tab Univers MG ORAL TAB 909 qam and 1 ity of 00:00: tab [...] 00:00: tab qpm Medical Branch ATENOLOL Yes [id number] one tab po Univers 100 MG ORAL 8-27 daily ity of TAB 00:00: Medical Branch NORCO Yes 1 tab po Univers 7.5-325 MG 8-27 TID ity of ORAL TAB 00:00: Medical Branch AMITRIPTYLI Yes 2 tabs QHS Univers NE 50 MG 8-27 ity of ORAL TAB 00:00: Medical Branch METFORMIN Yes [id number] 1 tab PO Univers 850 MG ORAL 8-27 TID ity of TAB 00:00: Medical Branch CLONIDINE Yes [id number] take 1 po Univers 0.2 MG ORAL 8-27 qid for 1 ity of TAB 00:00: week, then [place] 00 tid for 1 Medical week, then Branch bid and prn thereafter PRAVASTATIN Yes [id number] take 1 po Univers 40 MG ORAL 8-27 qhs ity of TAB 00:00: [place] [facility] ATENOLOL Yes [id number] one tab po Univers 100 MG ORAL 8-27 daily ity of TAB 00:00: [place] [facility] NORCO Yes 1 tab po Univers 7.5-325 MG 8-27 TID ity of ORAL TAB 00:00: [place] [facility] AMITRIPTYLI Yes 2 tabs QHS Univers NE 50 MG 8-27 ity of ORAL TAB 00:00: [place] [facility] METFORMIN Yes [id number] 1 tab PO Univers 850 MG ORAL 8-27 TID ity of TAB 00:00: [place] [facility] CLONIDINE Yes [id number] take 1 po Univers 0.2 MG ORAL 8-27 qid for 1 ity of TAB 00:00: week, then [place] 00 tid for 1 Medical week, then Branch bid and prn thereafter PRAVASTATIN Yes [id number] take 1 po Univers 40 MG ORAL 8-27 qhs ity of TAB 00:00: [place] [facility] ATENOLOL Yes [id number] one tab po Univers 100 MG ORAL 8-27 daily ity of TAB 00:00: [place] [facility] NORCO Yes 1 tab po Univers 7.5-325 MG 8-27 TID ity of ORAL TAB 00:00: [place] [facility] AMITRIPTYLI Yes 2 tabs QHS Univers NE 50 MG 8-27 ity of ORAL TAB 00:00: [place] [facility] METFORMIN Yes [id number] 1 tab PO Univers 850 MG ORAL 8-27 TID ity of TAB 00:00: [place] [facility] CLONIDINE Yes [id number] take 1 po Univers 0.2 MG ORAL 8-27 qid for 1 ity of TAB 00:00: week, then [place] 00 tid for 1 Medical week, then Branch bid and prn thereafter PRAVASTATIN Yes [id number] take 1 po Univers 40 MG ORAL 8-27 qhs ity of TAB 00:00: [place] [facility] ATENOLOL Yes [id number] one tab po Univers 100 MG ORAL 8-27 daily ity of TAB 00:00: Medical Branch NORCO Yes 1 tab po Univers 7.5-325 MG 8-27 TID ity of ORAL TAB 00:00: Medical Branch AMITRIPTYLI Yes 2 tabs QHS Univers NE 50 MG 8-27 ity of ORAL TAB 00:00: [place] [facility] METFORMIN Yes [id number] 1 tab PO Univers 850 MG ORAL 8-27 TID ity of TAB 00:00: Medical Branch CLONIDINE Yes [id number] take 1 po Univers 0.2 MG ORAL 8-27 qid for 1 ity of TAB 00:00: week, then [place] 00 tid for 1 Medical week, then Branch bid and prn thereafter PRAVASTATIN Yes [id number] take 1 po Univers 40 MG ORAL 8-27 qhs ity of TAB 00:00: Medical Branch ATENOLOL Yes [id number] one tab po Univers 100 MG ORAL 8-27 daily ity of TAB 00:00: Medical Branch NORCO Yes 1 tab po Univers 7.5-325 MG 8-27 TID ity of ORAL TAB 00:00: Medical Branch AMITRIPTYLI Yes 2 tabs QHS Univers NE 50 MG 8-27 ity of ORAL TAB 00:00: Medical Branch METFORMIN Yes [id number] 1 tab PO Univers 850 MG ORAL 8-27 TID ity of TAB 00:00: Medical Branch CLONIDINE Yes [id number] take 1 po Univers 0.2 MG ORAL 8-27 qid for 1 ity of TAB 00:00: week, then [place] 00 tid for 1 Medical week, then Branch bid and prn thereafter PRAVASTATIN Yes [id number] take 1 po Univers 40 MG ORAL 8-27 qhs ity of TAB 00:00: Medical Branch ATENOLOL Yes [id number] one tab po Univers 100 MG ORAL 8-27 daily ity of TAB 00:00: Medical Branch NORCO Yes 1 tab po Univers 7.5-325 MG 8-27 TID ity of ORAL TAB 00:00: Medical Branch AMITRIPTYLI 2007-0 Yes 2 tabs QHS Univers NE 50 MG 8-27 ity of ORAL TAB 00:00: Medical Branch METFORMIN 2007-0 Yes [id number] 1 tab PO Univers 850 MG ORAL 8-27 TID ity of TAB 00:00: Medical Branch CLONIDINE 2007- Yes [id number] take 1 po Univers 0.2 MG ORAL 8-27 qid for 1 ity of TAB 00:00: week, then tid for 1 Medical week, then Branch bid and prn thereafter PRAVASTATIN 2007- Yes [id number] take 1 po Univers 40 MG ORAL 8-27 qhs ity of TAB 00:00: Medical Branch CLONIDINE 2007- Yes [id number] 1 tab tid Univers 0.3 MG ORAL 4-30 and prn ity o f TAB 00:00: Medical Branch CLONIDINE 2007- Yes [id number] 1 tab tid Univers 0.3 MG ORAL 4-30 and prn ity o f TAB 00:00: Medical Branch CLONIDINE 2007- Yes [id number] 1 tab tid Univers 0.3 MG ORAL 4-30 and prn ity o f TAB 00:00: Medical Branch CLONIDINE 2007-0 Yes [id number] 1 tab tid Univers 0.3 MG ORAL 4-30 and prn ity o f TAB 00:00: Medical Branch CLONIDINE 2007-0 Yes [id number] 1 tab tid Univers 0.3 MG ORAL 4-30 and prn ity o f TAB 00:00: Medical Branch CLONIDINE 2007-0 Yes [id number] 1 tab tid Univers 0.3 MG ORAL 4-30 and prn ity o f TAB 00:00: Medical Branch ASPIRIN 325 2006- Yes [id number] 1 tab U nivers MG ORAL TAB 0-04 daily ity of 00:00: Medical Branch ASPIRIN 325 2006- Yes [id number] 1 tab U nivers MG ORAL TAB 0-04 daily ity of 00:00: Medical Branch ASPIRIN 325 2006- Yes [id number] 1 tab U nivers MG ORAL TAB 0-04 daily ity of 00:00: Medical Branch ASPIRIN 325 2006- Yes [id number] 1 tab U nivers MG ORAL TAB 0-04 daily ity of 00:00: [place] 00 Medical Branch ASPIRIN 325 2007- Yes [id number] 1 tab U nivers MG ORAL TAB 0-04 daily ity of 00:00: [place] 00 Medical Branch ASPIRIN 325 2007- Yes [id number] 1 tab U nivers MG ORAL TAB 0-04 daily ity of 00:00: [place] 00 [facility] Immunizations Ordered Filled Immunization Date Status Comments Sour e Immunization Name Name Influenza Virus 2007-06-20 Completed Universit y of Vaccine 00:00:00 [facility] Influenza Virus 2007-06-20 Completed Universit y of Vaccine 00:00:00 [facility] Influenza Virus 2007-06-20 Completed Universit y of Vaccine 00:00:00 [facility] Influenza Virus 2007-06-20 Completed Universit y of Vaccine 00:00:00 [facility] Influenza Virus 2007-06-20 Completed Universit y of Vaccine 00:00:00 [facility] Influenza Virus 2007-06-20 Completed Universit y of Vaccine 00:00:00 [facility] Influenza Virus 2006-07-26 Completed Universit y of Vaccine 00:00:00 [facility] Influenza Virus 2006-07-26 Completed Universit y of Vaccine 00:00:00 [facility] Influenza Virus 2006-07-26 Completed Universit y of Vaccine 00:00:00 [facility] Influenza Virus 2006-07-26 Completed Universit y of Vaccine 00:00:00 [facility] Influenza Virus 2006-07-26 Completed Universit y of Vaccine 00:00:00 [facility] Influenza Virus 2006-07-26 Completed Universit y of Vaccine 00:00:00 [facility] Vital Signs Vital Name Observation Time Observation Value Comments Source WEIGHT 2020-03-24 00:00:00 76.658 kg Systolic blood 2021-05-11 01:25:00 156 mm[Hg] Univer sity of pressure [facility] Diastolic blood 2021-05-11 01:25:00 77 mm[Hg] Unive rsity of pressure [facility] Heart rate 2021-05-11 01:25:00 65 /[facility] Body temperature 2021-05-11 01:25:00 36.94 Sindhu Univ ersity of [facility] Respiratory rate 2021-05-11 01:25:00 18 /min [facility] Oxygen saturation in 2021-05-11 01:25:00 96 /min [facility] Arterial blood by [facility] Pulse oximetry Branch Body weight 2021-05-10 12:50:00 68.04 kg [facility] WEIGHT 2020-03-24 00:00:00 76.658 kg Procedures Procedure Date / Time Performed Performing Clinician Sour e ASSIGNMENT OF BENEFITS 2021-05-07 21:31:03 Doctor Unassigned[facility] Plan of Care Planned Activity Planned [...] 00:00:00 [facility] (procedure[facility] [code = 27280666] Future Scheduled 2020-09-[address] [facility] Test 00:00:00 measurement [facility] Center (procedure) [code = 58690807] Future Scheduled 2020-09-[address] [...] [facility] Test 00:00:00 (1 of 1 - [facility] [id number] PCV13) [code = PNEUMOCOCCAL 65+ YRS (1 of 1 - [id number] PCV13)] Future Scheduled 2002 PNEUMOCOCCAL 65+ YRS [facility] Test 00:00:00 (1 of 1 - Medical Center [id number] PCV13) [code = PNEUMOCOCCAL 65+ YRS (1 of 1 - LTAE54_Lctnnob PCV13)] Future Scheduled 1999-11-11 MEDICARE ANNUAL [facility] [...] 00:00:00 protein (procedure) Medical Center [code = 412970858] Future Scheduled [address] DIABETIC EYE EXAM [facility] Test 00:00:00 [code = DIABETIC EYE Medical Center EXAM] Future Scheduled 1947 Urine screening for [facility] Test 00:00:00 [facility] (procedure) [facility] [code = 694806020] Encounters Start End Encounter Admission Attending Care Care Encounter Source Date/Time Date/Time Type Type Clinicians Facility Department ID 2020-03-24 [id number] 62 [facility] 23:52:00 JUAQUIN Med 2021-05-10 2021-05-10 Nurse Therapy, Kevin Suhid [facility] [id number]. [id number] Univers 19:27:33 20:27:33 Visit Unknown, [facility] [id number] ity [facility] [id number] Shawn as Terrell?Blea [phone] [address] Office [facility] 2021-05-10 2021-05-10 Outpatient R [facility] [id number] Univers 19:30:00 19:30:[id number] [facility] 2021-05-10 2021-05-10 Outpatient R UNKNOWN, [facility] [id number] Univers 19:30:00 19:30:00 [facility] 2021-[facility]-09 2021-05-09 Telephone TRENT Tariq [id number] Univers 00:00:00 00:00:00 Gessica P RAYA [id number] ity [facility] [id number] Shawn as [phone] [address] 2021-05-07 2021-05-07 Laboratory Only, Ang Db Test [facility] [id number] Univers 17:11:44 17:31:44 Only Mari Browne [employer] [id number] ity of [place] [id number] Shawn as Terrell?Blea [id number] [address] Medical Office [facility] 2021-05-07 2021-05-07 Outpatient R [facility] [id number] Univers 17:15:00 17:15:00 [id number] y [facility] 2021-05-07 2021-05-07 Outpatient R TOMA [facility] [id number] Univers 17:15:00 17:15:00 [facility] 2021-05-07 2021-05-07 Outpatient R TOMA [facility] [id number] Univers 16:20:00 16:20:00 MARI storm [facility] 2021-05-07 2021-05-07 Orders Doctor TRENT [id number] 00:00:00 00:00:00 Only Unassigned, RAYA [id number] ity of [place] [facility] [id number] [facility] as [phone] [address] Results Test Description Test Time Test Comments Results Result Comments Source POCT-GLUCOSE METER 2020-03-29 11:32:00 Test Item Value Reference Range Interpretation Comme nts POC-GLUCOSE METER (BEAKER) 235 mg/dL 70-110 H : TESTED AT [facility] [address] [facility] (test code = 1538) [facility] [place], [address]: Lift Team Technician/Techni chika ID = [id number] for QUEEN NATARAJAN POCT-GLUCOSE [id number] 07:37:00 Test Item Value Reference Range Interpretation Comments POC-GLUCOSE METER 190 mg/dL 70-110 H : TESTED A T [facility] 6720 (BEAKER) (test code = DINA Ortega [facility], 1538) [address]: Lift Team Technician/Techni chika ID = [id number] for QUEEN LASSITER CBC W/PLT COUNT & AUTO [id number] 06:10:00 Test Item Value Reference Range Interpretation [...] PERCENT (BEAKER) (test code = 2801) POCT-GLUCOSE [id number] 22:16:00 Test Item Value Reference Range Interpretation Comments POC-GLUCOSE METER 275 mg/dL 70-110 H : TESTED A T [facility] 6720 (BEAKER) (test code = [facility] [employer] [facility], 1538) [address]: Lift Team Technician/Techni chika ID = [id number] for YRIS HENAO POCT-GLUCOSE [id number] 16:44:00 Test Item Value Reference Range Interpretation Comments POC-GLUCOSE METER 200 mg/dL 70-110 H : TESTED A T [facility] 6720 (BEAKER) (test code = [facility] [facility], 1538) 10651: Lift Team Technician/Techni chika ID = [id number] for QUEEN LASSITER POCT-GLUCOSE [id number] 12:11:00 Test Item Value Reference Range Interpretation Comments POC-GLUCOSE METER 180 mg/dL 70-110 H : TESTED A T [facility] 6720 (BEAKER) (test code = [facility], 1538) 21955: Lift Team Technician/Techni chika ID = [id number] for SHAYY ALBRIGHT POCT-GLUCOSE [id number] 08:17:00 Test Item Value Reference Range Interpretation Comments POC-GLUCOSE METER 158 mg/dL 70-110 H : TESTED A T [facility] 6720 (BEAKER) (test code = [facility], 1538) 87305: Lift Team Technician/Techni chika ID = [id number] for SHAYY ALBRIGHT CBC W/PLT COUNT & AUTO [id number] 04:14:00 Test Item Value Reference Range Interpretation [...] PERCENT (BEAKER) (test code = 2801) POCT-GLUCOSE [id number] 16:12:00 Test Item Value Reference Range Interpretation Comments POC-GLUCOSE METER 233 mg/dL 70-110 H : TESTED A T [facility] 6720 (BEAKER) (test code = [facility], 1538) 61913: Lift Team Technician/Techni chika ID = [id number] for SHAYY ALBRIGHT POCT-GLUCOSE [id number] 12:02:00 Test Item Value Reference Range Interpretation Comments POC-GLUCOSE METER 190 mg/dL 70-110 H : TESTED A T [facility] 6720 (BEAKER) (test code = [facility], 1538) 52625: Lift Team Technician/Techni chika ID = [id number] for SHAYY ALBRIGHT STOOL CULTURE + SHIGA [id number] 09:19:00 Test Item Value Reference Range Interpretation Comments CULTURE (BEAKER) No Salmonella, Shigella (test code = 1095) or Campylobacter isolated POCT-GLUCOSE [id number] 07:46:00 Test Item Value Reference Range Interpretation Comments POC-GLUCOSE METER 174 mg/dL 70-110 H : TESTED A T [facility] 6720 (BEAKER) (test code = [facility], 1538) 25049: Lift Team Technician/Techni chika ID = [id number] for SHAYY ALBRIGHT CBC W/PLT COUNT & AUTO [id number] 06:53:00 Test Item Value Reference Range Interpretation [...] 0-1 PERCENT (BEAKER) (test code = 2801) [id number] 06:20:00 Test Item Value Reference Range Interpretation Comments MAGNESIUM (BEAKER) 1.7 mg/dL 1.6-2.6 Specimen slightly (test code = 627) hemolyzed Lift Team Technician ID - LATA WBASIC METABOLIC [id number] 06:20:00 Test Item Value Reference Range Interpretation [...] S NOT APPLICABLE FOR DIALYSIS PATIEN TS. Lift Team Technician ID - LATA WHEPATIC FUNCTION [id number] 06:20:00 Test Item Value Reference Range Interpretation [...] Specimen slightly (test code = 347) hemolyzed Lift Team Technician ID - LATA WPOCT-GLUCOSE [id number] 21:46:00 Test Item Value Reference Range Interpretation Comments POC-GLUCOSE METER 181 mg/dL 70-110 H : [facility] (test code = DINA Ortega [facility], 1538) 04143: Lift Team Technician/Techni chika ID = [id number] for JEREMY GUPTA CT, BRAIN, WITHOUT [id number] 18:11:00FINAL REPORT CT, BRAIN, WITHOUT CONTRAST INDICATION: [...] Signed: Wyatt Burch MDReport Verified Date/Time: 03/26/202018:11:57 POCT-GLUCOSE [id number] 17:31:00 Test Item Value Reference Range Interpretation Comments POC-GLUCOSE METER 209 mg/dL 70-110 H : Notified RN/MD: (BEAKER) (test code = TESTED AT [facility] 6720 1538) [facility], [address]: Lift Team Technician/Techni chika ID = [id number] for MEERA LEMOS SHIGA TOXIN [id number] 15:19:00 Test Item Value Reference Range Interpretation Comments SHIGA TOXIN 1 (BEAKER) (test Not detected Not detected code = 2177) SHIGA TOXIN 2 (BEAKER) (test Not detected Not detected code = 2179) POCT-GLUCOSE [id number] 11:53:00 Test Item Value Reference Range Interpretation Comments POC-GLUCOSE METER 159 mg/dL 70-110 H : [facility] (test code = [facility], 1538) 14947: Lift Team Technician/Techni chika ID = [id number] for SANDRA HOLLIS STOOL PATH [id number] 11:36:00 Test Item Value Reference Range Interpretation Comments PATHOGEN EXAM CHARGED (BEAKER) (test Done code = 2381) POCT-GLUCOSE [id number] 07:11:00 Test Item Value Reference Range Interpretation Comments POC-GLUCOSE METER 146 mg/dL 70-110 H : [facility] ([facility]ER[facility] (test code = [facility], 1538) 57959: Lift Team Technician/Techni chika ID = [id number] for SUMIT DIALLO MILY [id number] 06:04:00 Test Item Value Reference Range Interpretation Comments MAGNESIUM (BEAKER) (test code = 1.9 mg/dL 1.6-2.6 627) Lift Team Technician ID - PIAYA LBASIC METABOLIC [id number] 06:04:00 Test Item Value Reference Range Interpretation [...] S NOT APPLICABLE FOR DIALYSIS PATIEN TS. Lift Team Technician ID - PIAYA LHEPATIC FUNCTION [id number] 06:04:00 Test Item Value Reference Range Interpretation [...] (test code = 15 U/L 6-55 347) Lift Team Technician ID - PIAYA LCBC W/PLT COUNT & AUTO [id number] 05:20:00 Test Item Value Reference Range Interpretation [...] PERCENT (BEAKER) (test code = 2801) POCT-GLUCOSE [id number] 21:12:00 Test Item Value Reference Range Interpretation Comments POC-GLUCOSE METER 154 mg/dL 70-110 H : TESTED Lilli Mendez [facility] 6720 (BEAKER) (test code = [facility] [place], 1538) 42764: Lift Team Technician/Techni chika ID = [id number] for JEREMY GUPTA POCT-GLUCOSE [id number] 17:43:00 Test Item Value Reference Range Interpretation Comments POC-GLUCOSE METER 152 mg/dL 70-110 H : TESTED A T [facility] 6720 (CALI) (test code = [facility] [place], 1538) 97943: Lift Team Technician/Techni chika ID = [id number] for [place] SARS-COV2/RT-PCR ([facility])2020-03-25 13:40:00 Test Item Value Reference Range Interpretation Comments SARS-COV2/RT-PCR (test code = Negative Not Detected, Negative [id number]) SARS-COV-2 PERFORMING LAB [facility] (test code = 5090746) Negative result for this test determines that [...] 564(g) of the Act.Fact Sheet for Healthcare Providers:https://www.[employer]oom[employer].Travel Notes/sites/default/files/product/documents/Fact_Shee a_SY_Hianykyii_Nuxf_QLED-MnV-0.pdfFact Sheet for Healthcare Patients:https://www.[employer].Travel Notes/sites/default/files/product/ documents/Lwka_Uimhq_Eikjmtez_Aqun_FIBV-VrB-8.pdfPerforming Laboratory:[facility], [place] [id number] METER 2020-03-25 11:24:00 Test Item Value Reference Range Interpretation Comments POC-GLUCOSE METER 165 mg/dL 70-110 H : TESTED A T [facility] 6720 (BEAKER) (test code = DINA Ortega [facility], 1538) 73598: Lift Team Technician/Techni chika ID = [id number] for SANDRA HOLLIS TSH/FREE T4 IF [id number] 10:59:00 Test Item Value Reference Range Interpretation Comments THYROID STIMULATING HORMONE 0.622 uIU/mL 0.350-4.940 (BEAKER) (test code = 772) Lift Team Technician ID - PIAYA LHEMOGLOBIN [id number] 10:59:00 Test Item Value Reference Range Interpretation Comments HEMOGLOBIN A1C (BEAKER) (test code = 6.9 % 4.3-6.1 H 368) TROPONIN [id number] 10:50:00 Test Item Value Reference Range Interpretation [...] failure, acidosis, acute neurological disease, and persistent tachyarrhythmia.Lift Team Technician ID - PIAYA LBASIC METABOLIC [id number] 10:42:00 Test Item Value Reference Range Interpretation [...] S NOT APPLICABLE FOR DIALYSIS PATIEN TS. Lift Team Technician ID - WAGNER EPATIC FUNCTION [id number] 10:42:00 Test Item Value Reference Range Interpretation [...] (test code = 10 U/L 6-55 347) Lift Team Technician ID - WAGNER [id number] 10:41:00 Test Item Value Reference Range Interpretation Comments PHOSPHORUS (BEAKER) (test code = 3.2 mg/dL 2.3-4.7 604) Lift Team Technician ID - WAGNER [id number] 10:41:00 Test Item Value Reference Range Interpretation Comments MAGNESIUM (BEAKER) (test code = 2.0 mg/dL 1.6-2.6 627) Lift Team Technician ID - WAGNER LPOCT-GLUCOSE [id number] 09:10:00 Test Item Value Reference Range Interpretation Comments POC-GLUCOSE METER 116 mg/dL 70-110 H : TESTED A T [facility] 6720 (BEAKER) (test code = [facility] [place], 1538) 48478: Lift Team Technician/Techni chika ID = [id number] for LANCE TRACEY RAD, CHEST, 1 VIEW, NON [id number] 07:49:00Reason for exam:->chest painShould this be performed at the bedside?->YesFINAL REPORT CLINICAL HISTORY: chest pain TECHNIQUE: 1 view of the chest. COM PARISON: None IMPRESSION: There are linear bandlike opacities in the bilateral mid and lower lungs. There are no significant effusions. The cardiomediastinal silhouette is magnified by technique. Signed: Keturah Mensah MDReport Verified Date/Time: 03/25/2020 07:49:59 Reading Location: [facility] Radiology Reading Room C. DIFFICILE GDH [id number] 06:54:00 Test Item Value Reference Range Interpretation Comments CDT TOXIN (test code Negative Negative = [id number]) CDT GDH ANTIGEN (test Negative Negative No ind ication of code = [id number]) Clostridi um difficile infection and n o colonization. Discontinue ent perez isolation and t herapy. Testing performed by [employer] Rapid Cassette Assay. For GDH, published sensitivity of the assay is 98.7% compared to cytotoxicity testing. For Toxin AB, published sensitivity is 87.8% and specificity 99.4% compared to cytotoxicity testing.Verification of kit performance was done by the [facility] prior to clinical use.URINALYSIS WITH MICROSCOPIC IF [id number] 06:35:00 Test Item Value Reference Range Interpretation [...] = 463) SOURCE(BEAKER) (test code = 2795) Lift Team Technician ID - [auto]Lift Team Technician ID - techURINALYSIS [id number] 06:35:00 Test Item Value Reference Range Interpretation Comments RBC UA (BEAKER) (test code = 519) 3 /HPF WBC UA (BEAKER) (test code = 520) 11 /HPF BACTERIA (BEAKER) (test code = 517) Rare SQUAMOUS EPITHELIAL (BEAKER) (test 1 /HPF code = 516) Lift Team Technician ID - techPOCT-GLUCOSE [id number] 05:08:00 Test Item Value Reference Range Interpretation Comments POC-GLUCOSE METER 128 mg/dL 70-110 H : TESTED A T [facility] 6720 (BEAKER) (test code = [facility] [place], 1538) 82825: Lift Team Technician/Techni chika ID = [id number] for As Meena beckett
--- NOTE | 2022-03-06 16:46 | RAD REPORT ---
EXAM DESCRIPTION: RAD - Chest Single View - 03/06/2022 4:16 pm CLINICAL HISTORY: CONGESTION COMPARISON: Portable chest 02/24/2022 ; 03/24/2020 TECHNIQUE: AP portable chest image was obtained 03/06/2022 4:16 pm . FINDINGS: No acute lung parenchymal process seen. Fullness of the mediastinum matches prior imaging. Heart and vasculature are normal. No measurable pleural effusion and no pneumothorax. No acute bony abnormality seen. No acute aortic findings suspected. IMPRESSION: No acute cardiopulmonary process. No significant change from comparison study.
[2022-03-06 17:22] LABS: Absolute Lymphocytes (CBC) 2.2 K/uL (0.7-4.9); Hematocrit 27.7 % (36.0-45.0); Lymphocytes % 31.6 % (15.3-44.8); MPV 7.4 fL (7.6-11.3); RBC Red Blood Cell Count 3.85 M/uL (3.86-4.86)
[2022-03-06 17:28] LABS: Protime INR 1.09
[2022-03-06 17:41] LABS: ALT/SGPT 15 U/L (12-78); AST/SGOT 8 U/L (15-37); Albumin 3.6 g/dL (3.4-5.0); Alkaline Phosphatase 83 U/L (45-117); BUN Blood Urea Nitrogen 17 mg/dL (7-18); Bicarbonate 27 mmol/L (21-32); Bilirubin Direct < 0.1 mg/dL (0-0.2); Bilirubin Total 0.2 mg/dL (0.2-1.0); Glomerular Filtration Rate 74 ml/min (=/>90); Glucose Level 116 mg/dL (74-106); Magnesium 1.8 mg/dL (1.8-2.4); NT PRO-BNP 174 pg/mL (<450); Potassium 4.3 mmol/L (3.5-5.1); Protein, Total 6.8 g/dL (6.4-8.2); Sodium Level 129 mmol/L (136-145); Troponin High Sensitivity 5.1 pg/mL (<58.9)
--- NOTE | 2022-03-06 18:17 | ER ---
Nurse's Notes [facility] Name: Skylar Grossman Age: 86 yrs Sex: Female : 1935 Arrival Date: 03/06/2022 Time: 15:42 Bed 6 Private MD: Diagnosis: Essential (primary) hypertension Presentation: 03/06 15:48 Chief complaint: EMS states: Slide out wheelchair to the floor. EMS stated mild right ww hip pain. Patient denies any hip pain. Patient denies any injury or LOC. Coronavirus screen: Client denies travel out of the [place] in the last 14 days. Ebola Screen: Patient denies travel to an Ebola-affected area in the 21 days before illness onset. Initial Sepsis Screen: Does the patient meet any 2 criteria? No. Patient's initial sepsis screen is negative. Does the patient have a suspected source of infection? No. Patient's initial sepsis screen is negative. Risk Assessment: Do you want to hurt yourself or someone else? Patient reports no desire to harm self or others. Onset of symptoms was March 06, 2022. 15:48 Method Of Arrival: EMS: [facility] ww 15:48 Acuity: FARIDA 3 ww Triage Assessment: 15:49 General: Appears in no apparent distress. Behavior is calm, cooperative. Pain: Denies ww pain. Neuro: Level of Consciousness is awake, alert, obeys commands. Cardiovascular: Capillary refill < 3 seconds Patient's skin is warm and dry. Chest pain is denied. Respiratory: Airway is patent Respiratory effort is even, unlabored, Respiratory pattern is regular, symmetrical. GI: No signs and/or symptoms were reported involving the gastrointestinal system. Musculoskeletal: No signs and/or symptoms reported regarding the musculoskeletal system. Historical: - Allergies: 15:49 Codeine (Upset stomach); ww 15:49 meperidine HCl; ww 15:49 Morphine; ww - PMHx: 15:49 CVA; Dementia; Hypertension; High Cholesterol; Diabetes - IDDM; Depression; GERD; ww - Immunization history:: Adult Immunizations unknown. - Social history:: Patient/guardian denies using alcohol, street drugs, The patient lives with family, Smoking status: Patient denies any tobacco usage or history of. Screenin:51 Abuse screen: Denies threats or abuse. Denies injuries from another. Nutritional ww screening: No deficits noted. Tuberculosis screening: No symptoms or risk factors identified. Fall Risk No fall in past 12 months (0 pts). Secondary diagnosis (15 points) dementia, CVA, No IV (0 pts). Ambulatory Aid- Crutches/Cane/Walker (15 pts). Gait- Impaired (20 pts.). Mental Status- Overestimates/Forgets Limitations (15 pts.). Total Nettles Fall Scale indicates High Risk Score (45 or more points). Fall prevention measures have been instituted. Side Rails Up X 2 Placed Close to Nursing Station 1:1 Attendant Assigned Frequent Obs/Assessments Occuring Family Present and informed to notify staff if the need to leave the bedside As available patient and family educated on Fall Prevention Program and Strategies. Assessment: 15:51 Reassessment: Patient appears in no apparent distress at this time. No changes from ww previously documented assessment. Patient and/or family updated on plan of care and expected duration. Pain level reassessed. Patient is alert, oriented x 3, equal unlabored respirations, skin warm/dry/pink. see triage assessment. 16:38 Reassessment: Patient appears in no apparent distress at this time. No changes from ww previously documented assessment. Patient and/or family updated on plan of care and expected duration. Pain level reassessed. Patient is alert, oriented x 3, equal unlabored respirations, skin warm/dry/pink. 17:13 Reassessment: Patient appears in no apparent distress at this time. No changes from ww previously documented assessment. Patient and/or family updated on plan of care and expected duration. Pain level reassessed. Patient is alert, oriented x 3, equal unlabored respirations, skin warm/dry/pink. 18:41 Reassessment: Patient appears in no apparent distress at this time. No changes from ld1 previously documented assessment. Patient and/or family updated on plan of care and expected duration. Pain level reassessed. Vital Signs: 15:47 BP 201 / 99; Pulse 72; Resp 18; Temp 97.9; Pulse Ox 95% on R/A; Weight 72.57 kg (R); mb7 Height 5 ft. 4 in. (162.56 cm) (R); 18:41 BP 157 / 89; Pulse 71; Resp 18; Pulse Ox 96% on R/A; Pain 0/10; ld1 15:47 Body Mass Index 27.46 (72.57 kg, 162.56 cm) mb7 ED Course: 15:42 Patient arrived in ED. em1 15:42 Lianna Akins MD is Attending Physician. ma2 15:48 Laisha Ponce, RN is Primary Nurse. ww 15:48 Patient has correct armband on for positive identification. Bed in low position. Call mb7 light in reach. Side rails up X 1. Door closed. Noise minimized. Warm blanket given. 15:49 Triage completed. ww 15:50 Arm band placed on. ww 16:11 EKG done, by ED staff, reviewed by Lianna Akins MD. mb7 16:18 XRAY Chest (1 view) In Process Unspecified. EDMS 18:41 No provider procedures requiring assistance completed. Patient did not have IV access ww during this emergency room visit. Administered Medications: 18:17 CANCELLED (N/Aa): NS 0.9% 250 ml IV at 250 bolus once ma2 Medication: 18:41 VIS not applicable for this client. ld1 Outcome: 18:16 Discharge ordered by . ma2 18:41 Discharged to home with family. ww 18:41 Condition: stable 18:41 Discharge instructions given to patient, family, Instructed on discharge instructions, follow up and referral plans. safety practices, Demonstrated understanding of instructions, follow-up care. 18:42 Patient left the ED. ld1 Signatures: Dispatcher [employer] EDMS Anthony Lopez em1 Lianna Akins MD MD ma2 Gena Gibbs, RN RN ld1 Nehal Delvalle mb7 Laisha Ponce RN RN ww
--- NOTE | 2022-03-06 18:17 | EDPHYS ---
Physician Documentation [facility] Name: Skylar Grossman Age: 86 yrs Sex: Female : 1935 Arrival Date: 03/06/2022 Time: 15:42 Bed 6 Private MD: ED Physician Lianna Akins HPI: 03/06 15:47 This 86 yrs old Female presents to ER via Unassigned with complaints of Elevated blood ma2 pressure. 15:47 Onset: The symptoms/episode began/occurred gradually, 1 day(s) ago. Severity of ma2 symptoms: At their worst the symptoms were very mild in the emergency department the symptoms have resolved. The patient has experienced similar episodes in the past. No symptoms at this time, specifically no chest pain or headache. No head trauma,. Historical: - Allergies: 15:49 Codeine (Upset stomach); ww 15:49 meperidine HCl; ww 15:49 Morphine; ww - PMHx: 15:49 CVA; Dementia; Hypertension; High Cholesterol; Diabetes - IDDM; Depression; GERD; ww - Immunization history:: Adult Immunizations unknown. - Social history:: Patient/guardian denies using alcohol, street drugs, The patient lives with family, Smoking status: Patient denies any tobacco usage or history of. ROS: 15:47 Constitutional: Negative for fever, chills, and weight loss. ma2 15:47 All other systems are negative. Exam: 15:47 Constitutional: This is a well developed, well nourished patient who is awake, alert, ma2 and in no acute distress. Head/Face: Normocephalic, atraumatic. Eyes: Pupils equal round and reactive to light, extra-ocular motions intact. Lids and lashes normal. Conjunctiva and sclera are non-icteric and not injected. Cornea within normal limits. Periorbital areas with no swelling, redness, or edema. ENT: Nares patent. No nasal discharge, no septal abnormalities noted. Tympanic membranes are normal and external auditory canals are clear. Oropharynx with no redness, swelling, or masses, exudates, or evidence of obstruction, uvula midline. Mucous membranes moist. Neck: Trachea midline, no thyromegaly or masses palpated, and no cervical lymphadenopathy. Supple, full range of motion without nuchal rigidity, or vertebral point tenderness. No Meningismus. Chest/axilla: Normal chest wall appearance and motion. Nontender with no deformity. No lesions are appreciated. Cardiovascular: Regular rate and rhythm with a normal S1 and S2. No gallops, murmurs, or rubs. Normal PMI, no JVD. No pulse deficits. Respiratory: Lungs have equal breath sounds bilaterally, clear to auscultation and percussion. No rales, rhonchi or wheezes noted. No increased work of breathing, no retractions or nasal flaring. Abdomen/GI: Soft, non-tender, with normal bowel sounds. No distension or tympany. No guarding or rebound. No evidence of tenderness throughout. Back: No spinal tenderness. No costovertebral tenderness. Full range of motion. Skin: Warm, dry with normal turgor. Normal color with no rashes, no lesions, and no evidence of cellulitis. MS/ Extremity: Pulses equal, no cyanosis. Neurovascular intact. Full, normal range of motion. Neuro: Awake and alert, GCS 15, oriented to person, place, time, and situation. Cranial nerves II-XII grossly intact. Motor strength 5/5 in all extremities. Sensory grossly intact. Cerebellar exam normal. Normal gait. Vital Signs: 15:47 BP 201 / 99; Pulse 72; Resp 18; Temp 97.9; Pulse Ox 95% on R/A; Weight 72.57 kg (R); mb7 Height 5 ft. 4 in. (162.56 cm) (R); 18:41 BP 157 / 89; Pulse 71; Resp 18; Pulse Ox 96% on R/A; Pain 0/10; ld1 15:47 Body Mass Index 27.46 (72.57 kg, 162.56 cm) 7 MDM: 15:45 Patient medically screened. ma2 15:47 Differential Diagnosis htn, weakness, vs electrolyte abnormalities. wy2 18:15 Data reviewed: vital signs, nurses notes. Counseling: I had a detailed discussion with ma2 the patient and/or guardian regarding: the historical points, exam findings, and any diagnostic results supporting the discharge/admit diagnosis, the presence of at least one elevated blood pressure reading (>120/80) during this emergency department visit, the need for outpatient follow up. Response to treatment: the patient's symptoms have markedly improved after treatment. ED course: Last blood pressure measurement is 135/105, which is noncritical, patient does not have any symptom all lab work unremarkable, patient might be mildly dehydrated. Patient states that she would like to be discharged at this time,. 03/06 15:44 Order name: Basic Metabolic Panel; Complete Time: 18:13 [facility] 03/06 15:44 Order name: CBC with Diff; Complete Time: 18:13 [facility] 03/06 15:44 Order name: LFT's; Complete Time: 18:13 [facility] 03/06 15:44 Order name: Magnesium; Complete Time: 18:13 [facility] 03/06 15:44 Order name: NT PRO-BNP; Complete Time: 18:13 [facility] 03/06 15:44 Order name: PT-INR; Complete Time: 18:13 [facility] 03/06 15:44 Order name: Troponin HS; Complete Time: 18:13 [facility] 03/06 15:44 Order name: XRAY Chest (1 view); Complete Time: 17:01 [facility] 03/06 15:44 Order name: EKG; Complete Time: 15:44 [facility] 03/06 15:44 Order name: Cardiac monitoring; Complete Time: 15:52 [facility] 03/06 15:44 Order name: EKG - Nurse/Tech; Complete Time: 16:11 [facility] 03/06 15:44 Order name: Labs collected and sent; Complete Time: 17:13 [facility] 03/06 15:44 Order name: O2 Per Protocol; Complete Time: 15:51 [facility] 03/06 15:44 Order name: O2 Sat Monitoring; Complete Time: 15:51 wy2 Administered Medications: 18:17 CANCELLED (N/Aa): NS 0.9% 250 ml IV at 250 bolus once ma2 Disposition Summary: 03/06/22 18:16 Discharge Ordered Location: Home ma2 Condition: Stable ma2 Diagnosis - Essential (primary) hypertension ma2 Followup: ma2 - With: Private Physician - When: Tomorrow - Reason: If symptoms return, Continuance of care Discharge Instructions: - Discharge Summary Sheet ma2 - Hypertension, Adult ma2 - DASH Eating Plan ma2 Forms: - Medication Reconciliation Form ma2 - Thank You Letter ma2 - Antibiotic Education ma2 - Prescription Opioid Use ma2 Signatures: Dispatcher [employer] EDMS AlzahriLianna MD MD ma2 Wood, Whitney RN RN ww Corrections: (The following items were deleted from the chart) 18:17 18:16 NS 0.9% 250 ml IV at 250 bolus once ordered. jami farrell
[2022-03-06 18:50] VITALS: TEMP 97.9
[2022-03-06 18:51] VITALS: BP 157/89; O2SAT 96
--- NOTE | 2022-03-07 14:41 | EKG ---
Test Date: 2022-03-06 Test Time: 16:00:12 Chemical Laboratory Scientist: MB MEASUREMENT RESULTS: Intervals: Rate: 72 GA: 230 QRSD: 146 QT: 476 QTc: 521 [place]: P: 77 GA: 230 QRS: 77 T: 34 INTERPRETIVE STATEMENTS: Sinus rhythm with sinus arrhythmia with 1st degree AV block Right bundle branch block Abnormal ECG Compared to ECG 02/24/2022 16:47:00 Sinus bradycardia no longer present Electronically Signed On 03-07-22 14:40:31 CDT by Adrian Martin
== END 2022-03-06 18:42 | disposition home or self-care (01) ==
LOC: ER 15:40
DX: I10 Essential (primary) hypertension (principal); E11.9 Type 2 diabetes mellitus without complications; F03.90 Unspecified dementia, unspecified severity, without behavioral disturbance, psychotic disturbance, mood disturbance, and anxiety; Z86.73 Personal history of transient ischemic attack (TIA), and cerebral infarction without residual deficits; Z88.5 Allergy status to narcotic agent; Z88.8 Allergy status to other drugs, medicaments and biological substances
CPT/HCPCS: 36415; 71045; 80048; 80076; 83735; 83880; 84484; 85025; 85610; 93005; 99283

== ENCOUNTER 2022-06-27 11:18 | Emergency (ER) | payer OTHER ==
--- OUTSIDE RECORDS SUMMARY | 2022-06-27 11:24 | XMS REPORT | Continuity of Care Document ---
:1935 Author Organization [facility] t Address [address] [place] [address] Care Team Providers Name Role Phone Pcp MD, No Primary Care Physician Unavailable JUAQUIN MCINTYRE Attending Clinician Unavailable ACACIA DEL TORO Attending Clinician Unavailable Srinath Cohen DO Attending Clinician Annie GABRIEL, Acacia Landaverde Attending Clinician Ca Meléndez MD Attending Clinician Therapy, Ang [facility] Covid Attending Clinician Unavailable Unknown, Attending Attending Clinician Unavailable UNKNOWN, ATTENDING Attending Clinician Unavailable Paco Tariq RN Attending Clinician Unavailable Only, Ang Db Test Attending Clinician Unavailable Jud Parra Attending Clinician JUD CHUA Attending Clinician Unavailable Doctor Unassigned, [place] Attending Clinician Unavailable JUAQUIN MCINTYRE Admitting Clinician Unavailable ACACIA DEL TORO Admitting Clinician Unavailable Acacia Del Toro MD Admitting Clinician LUIS E DOMINGUEZ Admitting Clinician Unavailable Payers Payer Name Policy Policy Number Effective Expiration Source Type Date Date MEDICARE A B [id number] 1998 00:00:00 [facility] [id number] 2019 HEALTHCARE 00:00:00 MEDICARE PART A \\T\\ [id number] 1998 B 00:00:00 [facility] [id number] 2017 University o f HEALTHCAREUNITED 00:00:00 [facility] dical HEALTHCARE MEDICARE [facility] h [id number] 2018-Present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 Added automatic ally from request for surgery [id number] Acute Acute Disease Active [facility] encephal[facility] encephalop 7-16 [facility] athy athy 00:[facility] Center Vasovagal Vasovagal Disease Active [address] [facility]ope [facility] 7[facility] Colitis Colitis Disease Active 2019-[address] [facility] Syncope Syncope Disease Active 2020-[address] [facility] Pain in Pain in Disease Active Overview: Univ ers limb limb 3- Formattin ity of 00:00: g of this [place] 00 note Medical might be Branch different from the original. Right hand pain Disturbanc Disturbanc Disease Active U patricia e of skin e of skin 3- it[place] of sensation sensation [place] Carpal Carpal Disease Active Overview: Univer s tunnel tunnel 3- Formattin ity of syndrome syndrome 00:00: g of this [place] 00 note Medical might be Branch different from the original. Right Neuralgia, Neuralgia, Disease Active Overview : Univers neuritis, neuritis, 3- Formattin i ty of and and 00:00: g of this [place] radiculiti radiculiti 00 note Me dical s, s, might be Branch unspecifie unspecifie different d d from the original. Cervical radiculop athy Osteoarthr Osteoarthr Disease Active Overview : Univers itis itis 3-26 Formattin ity of 00:00: g of this [place] 00 note Medical might be Branch different from the original. 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 ICD10 Diagnosis Term [employer] Consultant Utility Chronic Chronic Disease Active 2005-09 Univers depressive depressive 1-15 it y of personalit personalit 00:00: [place] y disorder y disorder 00 Me dical Branch HLD HLD Disease Active 2005-09 Overview: Univer s (hyperlipi (hyperlipi 1-15 Formattin ity of demia) demia) 00:00: g of this [place] 00 note Medical might be Branch different from the original. 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 ICD10 Diagnosis Term [employer] Sales Consultant Utility Allergies, Adverse Reactions, Alerts Allergy Allergy Status Severity Reaction(s) Onset Inactive Treating Comm ents Source Name Type Date Date Clinician Morphine Propensi Active 2019-[address] [facility] [address] ty to 7-15 [facility] adverse [...] 00 Center s MEPERIDI DRUG Active Unknown-Cmnt Un teo NE [...] Natural father High blood pressure C HI [facility] Social History Social Habit Start Date Stop Date Quantity Comments Source History SDOH [facility] Std Medical Cent[facility] r Drinks History SDOH [facility] Alcohol Binge Medical Nataliia ter History SDOH [facility] Alcohol Comment Medical C enter Exposure to 2022-06-10 2022-06-20 Not sure [facility] SARS-CoV-2 00:00:00 14:10:00 [facility] (event) Branch History SDOH 2020-03-27 2020-03-[address] [facility] Alcohol Frequency 00:00:00 00:00:00 [facility] Tobacco use and 2020-03-26 2020-03-[address] [facility] k[facility] exposure 00:00:00 00:00:00 [facility] Alcohol intake 2020-03-26 2020-03-[address] [facility] [facility] 00:00:00 00:00:00 non-drinker of Medical Ce nter alcohol (finding) Sex Assigned At [address] [facility]ina kes 00:00:00 00:00:00 [facility] Smoking Status Start Date Stop Date Source Never smoked tobacco [facility] Medications Ordered Filled Start Stop Current Ordering Indication Dosage Frequency Signature Comments Components Source Medication Medication Date Date Medication? Clinician (SIG) Name Name tamsulosin 2021-09 Yes .4mg 0.4 mg, Univ ers (FLOMAX) 0-16 Oral, QHS, ity o f capsule 0.4 02:00: First dose [place] mg 00 on [facility] Medical 06/25/22 Branch at 2100, Until Discontinu ed, Routine amLODIPine 2021-09 Yes 5mg 5 mg, Univer s (NORVASC) 0-16 Oral, QHS, ity of tablet 5 mg 02:00: First dose [place] 00 on [facility] Medical 06/25/22 Branch at 2100, Until Discontinu ed, Routine pantoprazol 2021-09- Yes [id number] 40mg Take 1 Univers e 0-16 01-15 tablet by ity of (PROTONIX) 00:00: 05:59 mouth in [place] 40 mg EC 00 :00 the Medical tablet morning Branch for 90 days. vitamin 2021-09- Yes [id number] 1000ug Take 1 U nivers B-12 1,000 0-16 -15 tablet by ity of mcg tablet 00:00: 05:59 mouth in [place] 00 :00 the Medical morning Branch for 90 days. vitamin 2021-09 Yes 1000ug 1,000 mcg, Un teo B-12 0-15 Oral, ity of (CYANOCOBAL 14:00: DAILY, [place] CODY[place] 00 First dose Medical tablet (after Branch 1,000 mcg last modificati on) on [facility] 06/25/22 at 0900, Until Discontinu ed, Routine magnesium 2021-09- No 2g 2 g, IV Univ ers sulfate in 0-15 10-15 Piggyback, it y of water 2 14:00: 14:38 Administer [place] as gram/50 mL 00 :00 over 60 Medica l (4 %) Minutes, Branch infusion 2 ONCE, 1 g dose, On [facility] 06/25/22 at 0900, Routine KCL 2021-09- No 40meq 40 mEq, Univers (KLOR-CON 0-15 10-15 Oral, ity of M20) tablet 13:45: 13:34 ONCE, 1 [place] 40 mEq 00 :00 dose, On Medical [facility] Branch 06/25/22 at 0845, Routine levETIRAcet 2021-09 Yes 250mg 250 mg, Un teo am (KEPPRA) 0-15 Oral, BID, it y of tablet 250 13:00: First dose [place] mg 00 on [facility] Medical 06/25/22 Branch at 0800, Until Discontinu ed, Routine PEPCID 20 2021-09- No prn Univers MG ORAL TAB 0-15 10-15 ity of 12:45: 00:00 [place] 24 :00 Medical Branch B COMPLEX 1 2021-09- No None Unive rs ORAL TAB 006-25 Entered ity of 12:45: 00:00 [place] 24 :00 Medical Branch M-VIT ORAL 2021-09- No None Univer s 006-25 Entered ity of 12:45: 00:00 [place] 24 :00 Medical Branch metFORMIN 2021-09- Yes [id number] 500mg Take 1 Univers 500 mg 0-15 - tablet by ity of tablet 00:00: 05:59 mouth in [place] 00 :00 the Medical morning Branch and 1 tablet in the evening. Take with meals. Do all this for 90 days. tamsulosin 2021-09- Yes [id number] .4mg Take 1 Univers 0.4 mg 24 09-24 capsule by ity of hr capsule 00:00: 05:59 mouth at [facility] 00 :00 bedtime Medical for 90 Branch days. amLODIPine 2021-09- Yes [id number] 5mg Take 1 Univers 5 mg tablet 009-24 tablet by it y of 00:00: 05:59 mouth at [place] 00 :00 [facility] for 90 Branch days. levETIRAcet 2021-09- Yes [id number] 250mg Take 1 Univers am 250 mg 0-09-24 tablet by ity of tablet 00:00: 05:59 mouth in [place] 00 :00 the Medical morning Branch and 1 tablet in the evening. Do all this for 90 days. lisinopriL 2021-09- Yes [id number] 20mg Take 1 Univers 20 mg 0-15 - tablet by ity of tablet 00:00: 05:59 mouth in [place] 00 :00 the Medical morning Branch and 1 tablet in the evening. Do all this for 90 days. FLUoxetine 2021-09- Yes [id number] 20mg Take 1 Univers 20 mg 0-15 - capsule by ity of capsule 00:00: 05:59 mouth in [place] 00 :00 the Medical morning [place] for 90 days. memantine 2021-09- Yes [id number] 10mg Take 1 U nivers 10 mg 0-15 - tablet by ity of tablet 00:00: 05:59 mouth in [place] 00 :00 the Medical morning Branch and 1 tablet in the evening. Do all this for 90 days. pyridostigm 2021-09- Yes [id number] 60mg Take 1 Univers ine 60 mg 0-15 -14 tablet by ity of tablet 00:00: 05:59 mouth as [place] 00 :00 needed for Medical Other Branch (HYPOTENSI ON) for up to 90 days. simvastatin 2021-09- Yes [id number] 20mg Take 1 Univers 20 mg 0-15 01-14 tablet by ity of tablet 00:00: 05:59 mouth at [place] 00 :00 bedtime Medical for 90 Branch days. aspirin 81 2021-09- Yes [id number] 81mg Take 1 Univers mg chewable 0-15 -14 tablet by it y of tablet 00:00: 05:59 mouth in [place] 00 :00 the Medical morning Branch for 90 days. gabapentin 2021-09- Yes [id number] 300mg Take 1 Univers 300 mg 0-15 12-15 capsule by ity of capsule 00:00: 05:59 mouth as [place] 00 :00 needed for Medical Pain Branch (scale 4-6) for up to 60 days. amitriptyli 2021-09- Yes [id number] 100mg Take 2 Univers ne 50 mg 0-15 -23 tablets by ity of tablet 00:00: 04:59 mouth at [place] 00 :00 bedtime Medical for 7 Branch days. amLODIPine 2021-09- No 10mg 10 mg, Univ ers (NORVASC) 0-14 10-15 Oral, ity of tablet 10 14:00: 12:15 DAILY, [place] mg 00 :01 First dose Medical (after Branch last modificati on) on Mon06/24/22 at 0900, Until Discontinu ed, Routine metFORMIN 2021-09 Yes 500mg 500 mg, Univ ers (GLUCOPHAGE 0-13 Oral, BID ity of ) tablet 22:00: MEALS, [place] 500 mg 00 First dose Medical on [facility] Branch 06/23/22 at 1700, Until Discontinu ed, Routine amLODIPine 2021-09- No 5mg 5 mg, Unive rs (NORVASC) 0-13 10-13 Oral, ity of tablet 5 mg 16:52: 17:31 ONCE, 1 [place] 00 :00 dose, On Medical [facility] Branch 06/23/22 at 1200, Routine captopriL 2021-09 No 12.5mg 12.5 mg, U nivers (CAPOTEN) 0-13 10-13 Oral, ity of tablet 12.5 04:45: 04:56 ONCE, 1 [place] mg 00 :00 dose, On [facility] 06/22/22 at 2345, Routine labetaloL 2021-09 No 5mg 5 mg, Slow U nivers (NORMODYNE) 0-13 10-13 IV Push, ity of injection 5 03:45: 03:12 ONCE, 1 [place] mg 00 :00 dose, On [facility] 06/22/22 at 2245, Routine vitamin 2021-09 No 1000ug 1,000 mcg, U nivers B-12 0-12 10-15 Oral, ity of (CYANOCOBAL 20:15: 12:15 DAILY, [place] CODY) 00 :01 First dose Medical tablet (after Branch 1,000 mcg last modificati on) on [facility] 06/22/22 at 1515, Until Discontinu ed, Routine tamsulosin 2021-09 No .4mg 0.4 mg, Uni vers (FLOMAX) 0-12 10-15 Oral, ity of capsule 0.4 16:30: 12:15 DAILY, [place] mg 00 :01 First dose Medical on [facility] 06/22/22 at 1130, Until Discontinu ed, Routine pantoprazol 2021-09 Yes 40mg 40 mg, Univ ers e 0-12 Oral, ity of (PROTONIX) 14:00: DAILY, [place] EC tablet 00 First dose Medi joyce 40 mg on [facility] Branch 06/22/22 at 0900, Until Discontinu ed, Routine iron 2021-09 No 1000mg 1,000 mg, Unive rs dextran 0-12 -12 IV ity of (INFED) 13:15: 19:42 [place]fusion, [place] 1,000 mg in 00 :40 ONCE, 1 Medic al NaCl 0.9% dose, On Branch (NS) 500 mL [facility] IV infusion 06/22/22 at 0815, Administer over 1.5 Hours, 500 mL iron 2021-09 No 25mg 25 mg, IV Univers dextran 0-12 -12 Piggyback, ity o f (INFED) 25 13:15: 17:35 ONCE, 1 [place] mg in NaCl 00 :53 dose, On Medic al 0.9% (NS) [facility] 100 mL IV 06/22/22 piggyback at 0815, Administer over 15 Minutes, 100 mL magnesium 2021-09 No 4g 4 g, IV Univ ers sulfate in 006-22 Piggyback, it y of water 4 12:15: 15:48 at 25 [place] gram/50 mL 00 :01 mL/hr Medical (8 %) IV Administer Branc h Piggyback 4 over 120 g Minutes, ONCE, 1 dose, On [facility] 06/22/22 at 0715, Routine amLODIPine 2021-09 No 5mg 5 mg, Unive rs (NORVASC) 013 Oral, ity of tablet 5 mg 08:30: 16:53 DAILY, [place] 00 :37 First dose Medical on [facility] 06/22/22 at 0330, Until Discontinu ed, Routine melatonin 2021-09 Yes 3mg 3 mg, Univers (MELATIN) 012 Oral, QHS, ity of tablet 3 mg 02:00: First dose [place] 00 on [facility] 06/21/22 Branch at 2100, Until Discontinu ed, Routine hydrOXYzine 2021-09 No 10mg 10 mg, Uni vers (ATARAX) 012 Oral, ity of tablet 10 02:00: 01:08 ONCE, 1 [place] mg 00 :00 dose, On Medical [facility] 06/21/22 at 2100, Routine enoxaparin 2021-09 Yes 40mg 40 mg, Unive rs (LOVENOX) 011 Subcutaneo ity of injection 22:00: us, DAILY, [place] 40 mg 00 First dose Medical on [facility] 06/21/22 at 1700, Until Discontinu ed, Routine hydroCHLORO 2021-09 No 25mg 25 mg, Uni vers thiazide 011 -11 Oral, ity of (ESIDRIX) 19:00: 20:35 DAILY, [place] tablet 25 00 :31 First dose Medi joyce mg (after Branch last modificati on) on [facility] 06/21/22 at 1400, Until Discontinu ed, Routine Sliding 2021-09 Yes Subcutaneo Univ ers Scale 0-11 us, TID ity of Insulin - 17:00: MEALS+HS, [place] as Lispro 00 First dose Medical (HumaLOG) + on Mon [place] [facility] 06/21/22 Testing at 1200, Until Discontinu ed, Routine sulfur 2021-09- No [id number] 5mL 5 mL, Unive rs hexafluorid 0-11 10-11 Intravenou i ty of e microsphr 17:00: 17:00 s, ONCE, 1 [place] (LUMASON) 00 :00 dose, On Medica l injection 5 [facility] mL 06/21/22 at 1200, Routine
forestry faculty member approving Restricted medication : WILTON NICHOLAS enalapril 2021-09 Yes 20mg 20 mg, Univer s (VASOTEC) 0-11 Oral, BID, ity of tablet 20 16:00: First dose [place] mg 00 on [facility] Medical 06/21/22 Branch at 1100, Until Discontinu ed, Routine dextrose 2021-09 Yes 250mL 250 mL, IV Un teo 10% (D10W) 0-11 Infusion, ity of bolus 15:42: PRN - SEE [place] infusion 37 INSTRUCTIO Medic al 250 mL NS, Branch Administer over 60 Minutes, Other, If blood glucose is < or = 70 mg/dL and patient is unable to swallow or has mental status changes, Starting on Mon06/21/22 at 1042
If blood glucose is < or = 70 mg/dL and patient is unable to swallow or has mental status changes (Give glucagon order if patient needs fluid restrictio n): IF IV access available: Dextrose 10%. 1. 125 mL (? bag) of D10W IV infusion - equivalent to 12.5 g dextrose 2. Blood glucose - draw blood glucose 15 minutes after D10W Administra tion. 3. If blood glucose is < 80 mg/dL, repeat.
glucagon 2021-09 Yes 1mg 1 mg, Univers (GLUCAGEN 0-11 Intramuscu ity of DIAGNOSTIC 15:42: lar, PRN, [place] KIT) 34 Starting Medical injection 1 on Tue Branch mg 06/21/22 at 1042, Until Discontinu ed, YOKO, Blood Glucose < or = 70 mg/dL and patient is unable to swallow or has mental changes. acetaminoph 2021-09 Yes 650mg 650 mg, Un teo en 0-11 Oral, ity of (TYLENOL) 15:21: Q6HPRN, [place] tablet 650 10 Starting Medic al mg on [facility] 06/21/22 at 1021, Until Discontinu ed, Routine, Pain (scale 1-3) melatonin 2021-09- No 3mg 3 mg, Univer s (MELATIN) 0-06-21 Oral, ity of tablet 3 mg 09:15: 08:30 ONCE, 1 [place] 00 :00 dose, On Medical [facility] 06/21/22 at 0415, Routine aspirin 2021-09 No 325mg 325 mg, Unive rs E.C. 006-21 Oral, ity of (ECOTRIN) 08:30: 08:30 ONCE, 1 [place] tablet 325 00 :00 dose, On Medic al mg [facility] 06/21/22 at 0330, STAT atenoloL 2021-09- No 100mg 100 mg, Univ ers (TENORMIN) 006-21 Oral, ity of tablet 100 03:00: 02:13 ONCE, 1 [place] mg 00 :00 dose, On [facility] 06/20/22 at 2200, Routine cloNIDine 2021-09- No .2mg 0.2 mg, Univ ers (CATAPRES) 006-21 Oral, ity of tablet 0.2 02:15: 02:14 ONCE, 1 [place] mg 00 :00 dose, On [facility] 06/20/22 at 2115, STAT iopamidol 2021-09- No [id number] 150mL 150 mL, Univers (ISOVUE 0-10 10-10 Intravenou ity o f 370-500 mL) 21:15: 21:15 s, ONCE, 1 [place] injection 00 :00 dose, On Medica l 150 mL [facility] 06/20/22 at 1615, Routine acetaminoph 2021-09- No 1000mg 1,000 mg, Univers en 0-10 10-10 Oral, ity of (TYLENOL) 21:00: 20:46 ONCE, 1 [place] tablet 00 :00 dose, On Medical 1,000 mg [place] Branch 06/20/22 at 1600, YOKO piperacilli 2021-09- No 3.375g 3.375 g, Univers n-tazobacta 0-10 10-11 IV ity of m (ZOSYN) 19:30: 18:13 Piggyback, [place] 3.375 g in 00 :39 Q8H ABX, Medic al NaCl 0.9% First dose Bran ch (NS) 100 mL on Mon MINI-BAG 06/20/22 at 1430, Until Discontinu ed, Administer over 4 Hours, 100 mL
Reas on for Anti-Infec tive: Empiric Therapy for Suspected Infection< br>Empi deonte Therapy Site: Urine
D uration of therapy: 72 hours NaCl 0.9% 2021-09- No 1000mL at 999 Uni vers (NS) bolus 0-10 10-10 mL/hr, ity of infusion 19:30: 20:53 1,000 mL, [place] 1,000 mL 00 :00 IV Medical Pigdevora, Emil ONCE, 1 dose, On [facility] 06/20/22 at 1430, STAT tamsulosin 2021- No .4mg Take 0.4 Un teo 0.4 mg 24 9-19 10-15 mg by ity of hr capsule 00:00: 00:00 mouth in [place] 00 :00 the Medical morning. Branch clopidogreL 2021- No TAKE 1 Uni vers 75 mg 9-02 10-15 TABLET BY ity of tablet 00:00: 00:00 MOUTH ONCE [place] 00 :00 DAILY Medical PATIENT Branch NEEDS TO CALL OFFICE TO MAKE AN APPOINTMEN T Insulin 2019- Yes 15U inject 15 Unive rs Glargine 7-19 Units ity of 100 unit/mL 00:00: under the [place] (3 mL) 00 skin. Medical injection Branch insulin Yes 15U QD Inject 15 [facility] glargine 7-19 Units [facility] (LANTUS 00:00: subcutaneo Medi joyce SOLOSTAR 00 ly Center U-100 nightly. INSULIN) 100 unit/mL (3 mL) InPn insulin 2020-0 Yes 15U QD Inject 15 [facility] glargine 7-[facility] U-100 nightly. INSULIN) 100 unit/mL (3 mL) In memantine 2020- No 5mg Q.5D Take 1 [facility] t (NAMENDA) 5 7- 07-19 tablet (5 Corina kes MG tablet 00:00: 23:59 mg total) Me dical 00 :00 by mouth 2 Center (two) times daily. memantine 2019-0 2020- No 5mg Q.5D Take 1 [facility] (NAMENDA) 5 7- 07-19 tablet (5 Corina kes MG tablet 00:00: 23:59 mg total) Me dical 00 :00 by mouth 2 Center (two) times daily. BYSTOLIC 10 2020-0 Yes 10mg QD Take [address] mg tablet 7-09 by mouth [facility] 00:00: daily. [address] BYSTOLIC 10 2020-0 Yes 10mg QD Take [address] mg tablet 7-09 by mouth [facility] 00:00: daily. [address] tamsulosin 2020-0 Yes .4mg Take 0.[address] [facility] (FLOMAX) 5-13 mg by [facility] 0.4 mg Cap 00:00: mouth Medica l 24 hr 00 Daily Center capsule (1800). simvastatin 2020-0 Yes 20mg QD Take [address] (ZOCOR) 20 5-13 by mouth [facility] MG tablet 00:00: nightly. [address] tamsulosin 2020-0 Yes .4mg Take 0.[address] (FLOMAX) 5-13 mg by [facility] 0.4 mg Cap 00:00: mouth Medica l 24 hr 00 Daily Center capsule (1800). simvastatin 2020-0 Yes 20mg QD Take [address] (ZOCOR) 20 5-13 by mouth [facility] MG tablet 00:00: nightly. [address] omeprazole 2020-0 Yes 20mg QD Take [address] (PRILOSEC) 5-04 by mouth [facility] 20 MG 00:00: daily. [address] omeprazole 2020-0 Yes 20mg QD Take [address] (PRILOSEC) 5-04 by mouth [facility] 20 MG 00:00: daily. Medical capsule [address] [place] [address] fLUoxetine Yes 20mg QD Take [address] (PROZAC) 20 8-23 by mouth Luke s MG capsule 00:00: daily. Medic al 00 [place] melatonin 3 Yes 3mg QD Take [address] mg Tab 8-23 by mouth [facility] tablet 00:00: nightly. [address] fLUoxetine Yes 20mg QD Take [address] (PROZAC) 20 8-23 by mouth Luke s MG capsule 00:00: daily. Medic al 00 [facility] 3 Yes 3mg QD Take [address] mg Tab 8-23 by mouth [facility] tablet 00:00: nightly. [address] PEPCID 20 Yes prn Univers MG ORAL TAB 6-11 ity of 04:52: [address] COMPLEX 1 Yes None Univer s ORAL TAB 6-11 Entered ity of 04:52: [address] M-VIT ORAL Yes None Univers 6-11 Entered ity of 04:52: [address] 20 Yes prn Univers MG ORAL TAB 6-11 ity of 04:52: [address] COMPLEX 1 Yes None Univer s ORAL TAB 6-11 Entered ity of 04:52: [address] M-VIT ORAL Yes None Univers 6-11 Entered ity of 04:52: [address] 20 Yes prn Univers MG ORAL TAB 6-11 ity of 04:52: [address] COMPLEX 1 Yes None Univer s ORAL TAB 6-11 Entered ity of 04:52: [address] M-VIT ORAL Yes None Univers 6-11 Entered ity of 04:52: [address] 20 Yes prn Univers MG ORAL TAB 6-11 ity of 04:52: [address] COMPLEX 1 Yes None Univer s ORAL TAB 6-11 Entered ity of 04:52: [address] M-VIT ORAL Yes None Univers 6-11 Entered ity of 04:52: [address] Yes prn Univers MG ORAL TAB 6-10 ity of 23:52: [address] B COMPLEX 1 Yes None Univer s ORAL TAB 6-10 Entered ity of 23:52: [address] M-VIT ORAL Yes None Univers 6-10 Entered ity of 23:52: [address] PEPCID 20 Yes prn Univers MG ORAL TAB 6-10 ity of 23:52: [address] B COMPLEX 1 Yes None Univer s ORAL TAB 6-10 Entered ity of 23:52: [address] M-VIT ORAL Yes None Univers 6-10 Entered ity of 23:52: [address] lisinopriL 2014-09 Yes 40mg Take [address] (PRINIVIL,Z 2-21 by mouth Luke s ESTRIL) 40 00:00: Daily Medica l MG tablet 00 (1800). [place] lisinopriL 2014-09 Yes 40mg Take [address] (PRINIVIL,Z 2-21 by mouth Luke s ESTRIL) 40 00:00: Daily Medica l MG tablet 00 (1800). [place] PROTONIX 40 Yes [id number] 1 tab PO Univers MG ORAL 4-01 daily ity of TBEC 00:00: [place] 00 [facility] PROTONIX 40 Yes [id number] 1 tab PO Univers MG ORAL 4-01 daily ity of TBEC 00:00: [place] 00 [facility] PROTONIX 40 Yes [id number] 1 tab PO Univers MG ORAL 4-01 daily ity of TBEC 00:00: [place] 00 [facility] PROTONIX 40 Yes [id number] 1 tab PO Univers MG ORAL 4-01 daily ity of TBEC 00:00: [place] 00 [facility] PROTONIX 40 Yes [id number] 1 tab PO Univers MG ORAL 4-01 daily ity of TBEC 00:00: [place] 00 [facility] PROTONIX 40 Yes [id number] 1 tab PO Univers MG ORAL 4-01 daily ity of TBEC 00:00: [place] 00 [facility] PROTONIX 40 2022- No [id number] 1 tab PO Univers MG ORAL 4-01 10-15 daily ity of TBEC 00:00: 00:00 [place] 00 :00 [facility] ENALAPRIL 2009-0 Yes [id number] 1 tab po Univers MALEATE 20 1-15 BID ity of MG ORAL TAB 00:00: [place] 00 Medical Branch ENALAPRIL 2009-0 Yes [id number] 1 tab po Univers MALEATE 20 1-15 BID ity of MG ORAL TAB 00:00: [place] 00 Medical Branch ENALAPRIL 2009-0 Yes [id number] 1 tab po Univers MALEATE 20 1-15 BID ity of MG ORAL TAB 00:00: [place] 00 Medical Branch ENALAPRIL 2009-0 Yes [id number] 1 tab po Univers MALEATE 20 1-15 BID ity of MG ORAL TAB 00:00: [place] 00 Medical Branch ENALAPRIL 2009-0 Yes [id number] 1 tab po Univers MALEATE 20 1-15 BID ity of MG ORAL TAB 00:00: [place] 00 Medical Branch ENALAPRIL 2009-0 Yes [id number] 1 tab po Univers MALEATE 20 1-15 BID ity of MG ORAL TAB 00:00: [place] 00 [facility] ENALAPRIL 2008-0 2021- No [id number] 1 tab po Univers MALEATE 20 1-15 10-15 BID ity of MG ORAL TAB 00:00: 00:00 [place] 00 :00 [facility] HYDROCHLORO 2008- Yes [id number] take 1 po Univers THIAZIDE 25 0-30 daily ity of MG ORAL TAB 00:00: [place] 00 [facility] HYDROCHLORO 2008- Yes [id number] take 1 po Univers THIAZIDE 25 0-30 daily ity of MG ORAL TAB 00:00: [place] 00 [facility] HYDROCHLORO 2008- Yes [id number] take 1 po Univers THIAZIDE 25 0-30 daily ity of MG ORAL TAB 00:00: [place] 00 [facility] HYDROCHLORO 2008- Yes [id number] take 1 po Univers THIAZIDE 25 0-30 daily ity of MG ORAL TAB 00:00: [place] 00 [facility] HYDROCHLORO 2008- Yes [id number] take 1 po Univers THIAZIDE 25 0-30 daily ity of MG ORAL TAB 00:00: [place] 00 [facility] HYDROCHLORO 2007- Yes [id number] take 1 po Univers THIAZIDE 25 0-30 daily ity of MG ORAL TAB 00:00: [place] 00 [facility] HYDROCHLORO 2007- 2022- No [id number] take 1 po Univers THIAZIDE 25 0-30 10-15 daily ity of MG ORAL TAB 00:00: 00:00 [place] 00 :00 [facility] GLIPIZIDE 5 Yes tske 2 [...] 00:00: tab qpm Medical Branch GLIPIZIDE 5 2022- No tske 2 tab Univers MG ORAL TAB 9- 10-15 qam and 1 it y of 00:00: 00:00 tab qpm [place] 00 :00 [facility] ATENOLOL Yes [id number] one tab po Univers 100 MG ORAL 8-27 daily ity of TAB 00:00: Medical Branch NORCO Yes 1 tab po Univers 7.5-325 MG 8-27 TID ity of ORAL TAB 00:00: Medical Branch AMITRIPTYLI Yes 2 tabs QHS Univers NE 50 MG 8-27 ity of ORAL TAB 00:00: Medical Branch METFORMIN Yes [id number] 1 tab PO Univers 850 MG ORAL 8-27 TID ity of TAB 00:00: Medical Branch CLONIDINE Yes [id number] take 1 po Univers 0.2 MG ORAL 8-27 qid for 1 ity of TAB 00:00: week, then 00 tid for 1 Medical week, then Branch bid and prn thereafter PRAVASTATIN Yes [id number] take 1 po Univers 40 MG ORAL 8-27 qhs ity of TAB 00:00: [place] [facility] ATENOLOL Yes [id number] one tab po Univers 100 MG ORAL 8-27 daily ity of TAB 00:00: Medical Branch NORCO Yes 1 tab po Univers 7.5-325 MG 8-27 TID ity of ORAL TAB 00:00: Medical Branch AMITRIPTYLI Yes 2 tabs QHS Univers NE 50 MG 8-27 ity of ORAL TAB 00:00: Medical Branch METFORMIN Yes [id number] 1 tab PO Univers 850 MG ORAL 8-27 TID ity of TAB 00:00: Medical Branch CLONIDINE Yes [id number] take 1 po Univers 0.2 MG ORAL 8-27 qid for 1 ity of TAB 00:00: week, then [place] 00 tid for 1 Medical week, then Branch bid and prn thereafter PRAVASTATIN Yes [id number] take 1 po Univers 40 MG ORAL 8-27 qhs ity of TAB 00:00: Medical Branch ATENOLOL Yes [id number] one tab po Univers 100 MG ORAL 8-27 daily ity of TAB 00:00: Medical Branch NORCO Yes 1 tab po Univers 7.5-325 MG 8-27 TID ity of ORAL TAB 00:00: Medical Branch AMITRIPTYLI Yes 2 tabs QHS Univers NE 50 MG 8-27 ity of ORAL TAB 00:00: Medical Branch METFORMIN Yes [id number] 1 tab PO Univers 850 MG ORAL 8-27 TID ity of TAB 00:00: Medical Branch CLONIDINE Yes [id number] take 1 po Univers 0.2 MG ORAL 8-27 qid for 1 ity of TAB 00:00: week, then [place] 00 tid for 1 Medical week, then Branch bid and prn thereafter PRAVASTATIN Yes [id number] take 1 po Univers 40 MG ORAL 8-27 qhs ity of TAB 00:00: Medical Branch ATENOLOL Yes [id number] one tab po Univers 100 MG ORAL 8-27 daily ity of TAB 00:00: Medical Branch NORCO Yes 1 tab po Univers 7.5-325 MG 8-27 TID ity of ORAL TAB 00:00: [place] [facility] AMITRIPTYLI Yes 2 tabs QHS Univers NE 50 MG 8-27 ity of ORAL TAB 00:00: [place] [facility] METFORMIN Yes [id number] 1 tab PO Univers 850 MG ORAL 8-27 TID ity of TAB 00:00: [place] [facility] CLONIDINE Yes [id number] take 1 po Univers 0.2 MG ORAL 8-27 qid for 1 ity of TAB 00:00: week, then [place] 00 tid for 1 Medical week, then Branch bid and prn thereafter PRAVASTATIN Yes [id number] take 1 po Univers 40 MG ORAL 8-27 qhs ity of TAB 00:00: Medical Branch ATENOLOL Yes [id number] one tab po Univers 100 MG ORAL 8-27 daily ity of TAB 00:00: [place] [facility] NORCO Yes 1 tab po Univers 7.5-325 MG 8-27 TID ity of ORAL TAB 00:00: Medical Branch AMITRIPTYLI Yes 2 tabs QHS Univers NE 50 MG 8-27 ity of ORAL TAB 00:00: [place] [facility] METFORMIN Yes [id number] 1 tab PO Univers 850 MG ORAL 8-27 TID ity of TAB 00:00: [place] [facility] CLONIDINE Yes [id number] take 1 po Univers 0.2 MG ORAL 8-27 qid for 1 ity of TAB 00:00: week, then [place] 00 tid for 1 Medical week, then Branch bid and prn thereafter PRAVASTATIN Yes [id number] take 1 po Univers 40 MG ORAL 8-27 qhs ity of TAB 00:00: [place] [facility] ATENOLOL Yes [id number] one tab po Univers 100 MG ORAL 8-27 daily ity of TAB 00:00: [place] [facility] NORCO Yes 1 tab po Univers 7.5-325 MG 8-27 TID ity of ORAL TAB 00:00: [place] [facility] AMITRIPTYLI Yes 2 tabs QHS Univers NE 50 MG 8-27 ity of ORAL TAB 00:00: [place] [facility] METFORMIN Yes [id number] 1 tab PO Univers 850 MG ORAL 8-27 TID ity of TAB 00:00: [place] 00 [facility] CLONIDINE Yes [id number] take 1 po Univers 0.2 MG ORAL 8-27 qid for 1 ity of TAB 00:00: week, then [place] 00 tid for 1 Medical week, then Branch bid and prn thereafter PRAVASTATIN Yes [id number] take 1 po Univers 40 MG ORAL 8-27 qhs ity of TAB 00:00: [place] 00 [facility] ATENOLOL 2007-2021- No [id number] one tab po Univers 100 MG ORAL 8-27 10-15 daily ity of TAB 00:00: 00:00 [place] 00 :00 Medical Branch NORCO 2007-2021- No 1 tab po Univers 7.5-325 MG 8-27 10-15 TID ity of ORAL TAB 00:00: 00:00 [place] 00 :00 Medical Branch AMITRIPTYLI 2021- No 2 tabs QHS Univers NE 50 MG 8-27 10-15 ity of ORAL TAB 00:00: 00:00 [place] 00 :00 Medical Branch METFORMIN 2007-0 2021- No [id number] 1 tab PO Univers 850 MG ORAL 8-27 10-15 TID ity of TAB 00:00: 00:00 [place] 00 :00 Medical Branch CLONIDINE 2007-2021- No [id number] take 1 po Univers 0.2 MG ORAL 8-27 10-15 qid for 1 it y of TAB 00:00: 00:00 week, then [place] 00 :00 tid for 1 Medical week, then Branch bid and prn thereafter PRAVASTATIN 2007-2021- No [id number] take 1 po Univers 40 MG ORAL 8-27 10-15 qhs ity of TAB 00:00: 00:00 [place] 00 :00 Medical Branch CLONIDINE Yes [id number] 1 tab tid Univers 0.3 MG ORAL 4-30 and prn ity o f TAB 00:00: [place] 00 Medical Branch CLONIDINE 2007- Yes [id number] 1 tab tid Univers 0.3 MG ORAL 4-30 and prn ity o f TAB 00:00: [place] 00 [facility] CLONIDINE 2007- Yes [id number] 1 tab tid Univers 0.3 MG ORAL 4-30 and prn ity o f TAB 00:00: [place] 00 [facility] CLONIDINE 2007-0 Yes [id number] 1 tab tid Univers 0.3 MG ORAL 4-30 and prn ity o f TAB 00:00: [place] [facility] CLONIDINE 2007-0 Yes [id number] 1 tab tid Univers 0.3 MG ORAL 4-30 and prn ity o f TAB 00:00: [place] [facility] CLONIDINE 2007-0 Yes [id number] 1 tab tid Univers 0.3 MG ORAL 4-30 and prn ity o f TAB 00:00: [place] [facility] CLONIDINE 2007-0 2022- No [id number] 1 tab tid Univers 0.3 MG ORAL 4-30 10-15 and prn ity of TAB 00:00: 00:00 [place] 00 :00 Medical Branch ASPIRIN 325 2006- Yes [id number] 1 tab U nivers MG ORAL TAB 0-04 daily ity of 00:00: [place] [facility] ASPIRIN 325 2006- Yes [id number] 1 tab U nivers MG ORAL TAB 0-04 daily ity of 00:00: [place] [facility] ASPIRIN 325 2006- Yes [id number] 1 tab U nivers MG ORAL TAB 0-04 daily ity of 00:00: [place] 00 Medical Branch ASPIRIN 325 2006- Yes [id number] 1 tab U nivers MG ORAL TAB 0-04 daily ity of 00:00: [place] [facility] ASPIRIN 325 2006- Yes [id number] 1 tab U nivers MG ORAL TAB 0-04 daily ity of 00:00: [place] 00 Medical Branch ASPIRIN 325 2006- Yes [id number] 1 tab U nivers MG ORAL TAB 0-04 daily ity of 00:00: [place] [facility] ASPIRIN 325 2006-2021- No [id number] 1 tab Univers MG ORAL TAB 0-04 10-15 daily ity of 00:00: 00:00 [place] 00 :00 Medical Branch Immunizations Ordered Filled Immunization Date Status Comments [facility] Immunization Name Name Influenza Virus 2007-06-20 Completed Universit y of Vaccine 00:00:00 [facility] Influenza Virus 2007-06-20 Completed Universit y of Vaccine 00:00:00 [facility] Influenza Virus 2007-06-20 Completed Universit y of Vaccine 00:00:00 [facility] Influenza Virus 2007-06-20 Completed Universit y of Vaccine 00:00:00 [facility] Influenza Virus 2007-06-20 Completed Universit y of Vaccine 00:00:00 [facility] Influenza Virus 2007-06-20 Completed Universit y of Vaccine 00:00:00 [facility] Influenza Virus 2007-06-20 Completed Universit y of Vaccine 00:00:00 [facility] Influenza Virus 2006-07-26 Completed Universit y of Vaccine 00:00:00 [facility] Influenza Virus 2006-07-26 Completed Universit y of Vaccine 00:00:00 [facility] Influenza Virus 2006-07-26 Completed Universit y of Vaccine 00:00:00 [facility] Influenza Virus 2006-07-26 Completed Universit y of Vaccine 00:00:00 [facility] Influenza Virus 2006-07-26 Completed Universit y of Vaccine 00:00:00 [facility] Influenza Virus 2006-07-26 Completed Universit y of Vaccine 00:00:00 [facility] Influenza Virus 2006-07-26 Completed Universit y of Vaccine 00:00:00 [facility] Vital Signs Vital Name Observation Time Observation Value Comments Source WEIGHT 2020-03-24 00:00:00 76.658 kg Systolic blood 2022-06-25 16:28:00 150 mm[Hg] Univer sity of pressure [facility] Diastolic blood 2022-06-25 16:28:00 92 mm[Hg] Unive rsity of pressure [facility] Heart rate 2022-06-25 16:28:00 102 /min [facility] Body temperature 2022-06-25 16:28:00 36.5 Sindhu [facility] Respiratory rate 2022-06-25 16:28:00 20 /min [facility] Oxygen saturation in 2022-06-25 16:28:00 91 /min [facility] Arterial blood by [facility] Pulse oximetry [place] Body weight 2022-06-21 15:26:00 71.215 kg Universi ty [facility] BMI 2022-06-21 15:26:00 26.13 kg/m2 Universi ty [facility] Body height 2022-06-20 18:31:00 165.1 cm Universi ty [facility] Systolic blood 2021-05-11 01:25:00 156 mm[Hg] Univer sity of pressure [facility] Diastolic blood 2021-05-11 01:25:00 77 mm[Hg[facility] Heart rate 2021-05-11 01:25:00 65 /min [facility] Body temperature 2021-05-11 01:25:00 36.94 Sindhu [facility] Respiratory rate 2021-05-11 01:25:00 18 /min [facility] Oxygen saturation in 2021-05-11 01:25:00 96 /min [facility] Arterial blood by [facility] Pulse oximetry [place] Body weight 2021-05-10 12:50:00 68.04 kg [facility] WEIGHT 2020-03-24 00:00:00 76.658 kg Procedures Procedure Date / Time Performing Clinician Source Performed POCT GLUCOSE (AUTOMATED) [facility] 17:11:00 [facility] POCT GLUCOSE (AUTOMATED) 2022-06-25 [facility] ersity of 14:07:00 [facility] MAGNESIUM 2022-06-[facility] 10:22:00 [facility] BASIC METABOLIC PANEL (NA, K, 2022-06-25 edwina [place] [facility] iversity of CL, CO2, GLUCOSE, BUN, 10:22:00 [facility] ical CREATININE, CA) [place] CBC WITHOUT DIFF 2022-06-25 edwina [facility] of 10:22:00 [facility] POCT GLUCOSE (AUTOMATED) 2022-06-25 [facility] ersity of 01:29:00 [facility] POCT GLUCOSE (AUTOMATED) 2022-06-24 [facility] ersity of 22:20:00 [facility] POCT GLUCOSE (AUTOMATED) 2022-06-24 [facility] ersity of 18:06:00 [facility] CBC WITHOUT DIFF 2022-06-24 Gita [facility] of 17:27:00 [facility] MAGNESIUM 2022-06-24 Gita [facility] of 17:26:00 [facility] BASIC METABOLIC PANEL (NA, K, 2022-06-24 Gita [place] [facility] iversity of CL, CO2, GLUCOSE, BUN, 17:26:00 [place] [facility] ical CREATININE, CA) Branch ELECTROPHYSIOLOGY PROCEDURE 2022-06-24 Bryan [facility] ersity of 13:36:26 Harini [facility] POCT GLUCOSE (AUTOMATED) 2022-06-24 Acacia Del Toro [facility] ersity of 13:01:00 [facility] POCT GLUCOSE (AUTOMATED) 2022-06-24 [place], [place] Uni versity of 03:58:00 [facility] URINALYSIS 2022-06-23 Gita [facility] of 22:59:00 [facility] POCT GLUCOSE (AUTOMATED) 2022-06-23 [place], [place] Uni versity of 22:38:00 [facility] POCT GLUCOSE (AUTOMATED) 2022-06-23 [place], [place] Uni versity of 17:07:00 [facility] POCT GLUCOSE (AUTOMATED) 2022-06-23 [place], [place] Uni versity of 12:31:00 [facility] MAGNESIUM 2022-06-23 Gita [facility] of 09:22:00 [facility] BASIC METABOLIC PANEL (NA, K, 2022-06-23 utissa [facility] iversity of CL, CO2, GLUCOSE, BUN, 09:22:00 [place] [facility] ical CREATININE, CA) Branch CBC WITHOUT DIFF 2022-06-23 edwina [facility] of 09:22:00 [facility] HB ECG ROUTINE & RHYTHM STRIP 2022-06-23 Fawad Muñoz [place] of 04:21:59 [facility] POCT GLUCOSE (AUTOMATED) 2022-06-23 [place], [place] Uni versity of 02:30:00 [facility] PHOSPHORUS 2022-06-22 Bin Gomez [place] of 22:43:00 [facility] POCT GLUCOSE (AUTOMATED) 2022-06-22 [place], [place] Uni versity of 21:59:00 [facility] POCT GLUCOSE (AUTOMATED) 2022-06-22 Low, [place] Uni versity of 16:52:00 [facility] POCT GLUCOSE (AUTOMATED) 2022-06-22 Low, [place] Uni versity of 13:13:00 [facility] MAGNESIUM 2022-06-[facility] of 10:07:00 [facility] FERRITIN SERUM 2022-06-22 [facility] of 10:07:00 [facility] VITAMIN B12, LEVEL 2022-06-22 [facility] of 10:07:00 [facility] BASIC METABOLIC PANEL (NA, K, 2022-06-22 [facility] iversity of CL, CO2, GLUCOSE, BUN, 10:07:00 [facility] ical CREATININE, CA) [place] IRON PANEL 2022-06-22 [facility] of 10:07:00 [facility] CBC WITH DIFF 2022-06-22 [facility] of 10:07:00 [facility] POCT GLUCOSE (AUTOMATED) 2022-06-22 [place] Uni versity of 00:54:00 [facility] POCT GLUCOSE (AUTOMATED) 2022-06-21 Srinath Cohen ity of 21:48:00 [facility] HB ECG ROUTINE & RHYTHM STRIP 2022-06-21 Bin Gomez iversity of 19:13:25 [facility] TRANSTHORACIC ECHO (TTE) 2022-06-21 [facility] ity of COMPLETE W/ CONTRAST 16:58:45 [facility] POCT GLUCOSE (AUTOMATED) 2022-06-21 Srinath Cohen ity of 16:35:00 [facility] THYROID STIMULATING HORMONE 2022-06-21 [facility] ersity of 12:08:00 [facility] COMP. METABOLIC PANEL ([id number]) 2022-06-21 Anastasiya Tapia [place] of 12:08:00 [facility] CBC WITH DIFF 2022-06-21 Anastasiya Tapia [place] of 12:08:00 [facility] GLYCOSYLATED HEMOGLOBIN (A1C) 2022-06-21 [facility] iversity of 12:08:00 [facility] COVID-19 (ID NOW RAPID 2022-06-21 Anastasiya Tapia [facility] sity of TESTING) 07:07:00 [facility] LAB ONLY COVID INTERPRETATION 2022-06-21 Anastasiya Tapia [place] of 07:07:00 [facility] LACTIC ACID WHOLE BLOOD 2022-06-21 Srinath Cohen [facility] ty of 04:05:00 [facility] CT HEAD WO CONTRAST 2022-06-21 Singer [facility] o f 00:42:20 [facility] ELECTROENCEPHALOGRAM 2022-06-21 [facility] [place] of 00:00:00 [facility] LACTIC ACID WHOLE BLOOD 2022-06-20 Srinath Cohen [facility] ty of 23:59:00 [facility] CT ANGIOGRAM ABDOMEN/PELVIS 2022-06-20 Singer [facility] ersity of 20:21:56 [facility] URINALYSIS 2022-06-20 Singer [facility] of 19:04:00 [facility] URINE CULTURE 2022-06-20 Singer [facility] of 19:04:00 [facility] XR CHEST 1 VW 2022-06-20 Singer [facility] of 18:50:20 [facility] BLOOD CULTURE SCREEN 2022-06-20 Cohen, [facility] of 18:46:00 [facility] BLOOD CULTURE SCREEN 2022-06-20 Cohen, [facility] of 18:39:00 [facility] TROPONIN I 2022-06-20 Cohen, [facility] of 18:39:00 [facility] COMP. METABOLIC PANEL ([id number]) 2022-06-20 Srinath Cohen iversity of 18:39:00 [facility] CBC WITH DIFF 2022-06-20 Cohen, [facility] of 18:39:00 [facility] EKG-12 LEAD 2022-06-20 Cohen, [facility] of 18:38:36 [facility] LACTIC ACID WHOLE BLOOD 2022-06-20 Singer Srinath [facility] ty of 18:38:00 [facility] ASSIGNMENT OF BENEFITS 2021-05-07 Doctor Unassigned, [facility] sity of 21:31:03 [place] [facility] Plan of Care Planned Activity Planned Date [...] 00:00:00 measurement [facility] (procedure) [code = 10420389] Future Scheduled 2020-09-[address] [facility] Test 00:00:00 measurement [facility] (procedure) [code = 62909428] Future Scheduled 2020-09-[address] [...] 00:00:00 (1 of 1 - Medical Center [id number] PCV13) [code = PNEUMOCOCCAL 65+ YRS (1 of 1 - [id number] PCV13)] Future Scheduled 2002 PNEUMOCOCCAL 65+ YRS [facility] Test 00:00:00 (1 of 1 - Medical Center [id number] PCV13) [code = PNEUMOCOCCAL 65+ YRS (1 of 1 - [id number]_[id number] PCV13)] Future Scheduled 1999-11-11 MEDICARE ANNUAL [facility] [...] 00:00:00 protein (procedure) Medical Center [code = 473059094] Future Scheduled 1947 DIABETIC EYE EXAM [facility] Test 00:00:00 [code = DIABETIC EYE [facility] EXAM] Future Scheduled 1947 Urine screening for [facility] Test 00:00:00 protein (procedure) Medical Center [code = 542630829] Medication 2022-07-03 amitriptyline 25 mg [facility] 00:00:00 tablet [code = 472299] Medic al Branch Encounters Start End Encounter Admission Attending Care Care Encounter Source Date/Time Date/Time Type Type Clinicians Facility Department ID 2020-03-24 Inpatient [facility] [id number] [facility] 23:52:00 JUAQUIN Med 2022-06-20 2022-06-25 Inpatient X CLARITA DEL TORO [facility] [id number] Univers 13:17:00 13:00:00 ACACIA storm [facility] 2022-06-20 2022-06-25 Hospital Srinath Cohen [id number] Univers 13:17:00 13:00:00 Encounter Acacia Del Toro [id number]. 10 ity of [facility] [id number] [place] [id number] [facility] 100 Branch 2021-05-10 2021-05-10 Nurse Therapy, Kevin Suhid [facility] [id number] Univers 19:27:33 20:27:33 Visit Unknown, [facility] Health [id number] ity of [place] [id number] Shawn as Terrell?Blea [id number] [address] Medical Office [facility] 2021-05-10 2021-05-10 Outpatient R ARTHUR, [facility] [id number] Univers 19:30:00 19:30:00 ATTENDING ity [facility] 2021-05-09 2021-05-09 Telephone TRENT Tariq [id number] Univers 00:00:00 00:00:00 Gessica P RAYA [id number] ity of [facility] [id number] Shawn as [id number] [facility] 019 [place] 2021-05-07 2021-05-07 Laboratory Only, Ang Db Test [facility] [id number] Univers 17:11:44 17:31:44 Only Jud [facility] [id number] ity of [place] [id number] Shawn as Terrell?Blea [id number] [address] Medical Office [facility] 2021-05-07 2021-05-07 Outpatient R TOMA [facility] [id number] Univers 17:15:00 17:15:00 JUD ity [facility] 2021-05-07 2021-05-07 Outpatient R TOMA [facility] [id number] Univers 16:20:00 16:20:00 JUD ity [facility] 2021-05-07 2021-05-07 Orders Doctor [place] [id number] Univers 00:00:00 00:00:00 Only Unassigned, RAYA [id number] ity of [place] [facility] [id number] Shawn as [phone] [address] Results Test Description Test Time Test Comments Results Result Comments Source POCT GLUCOSE (AUTOMATED) 2022-06-25 17:12:53 Test Item Value Reference Range Interpretation Comme nts POCT GLU (test code = 1857134626) 200 mg/dL 70-110 H Lab Interpretation (test code = 15184-3) Abnormal [facility] GLUCOSE (AUTOMATED)2022-06-25 14:20:12 Test Item Value Reference Range Interpretation Comments POCT GLU (test code = 3576828770) 171 mg/dL 70-110 H Lab Interpretation (test code = Abnormal 77455-8) [facility] GLUCOSE (AUTOMATED)2022-06-25 01:30:55 Test Item Value Reference Range Interpretation Comments POCT GLU (test code = 8906659427) 207 mg/dL 70-110 H Lab Interpretation (test code = Abnormal 32178-1) [facility] GLUCOSE (AUTOMATED)2022-06-24 22:26:40 Test Item Value Reference Range Interpretation Comments POCT GLU (test code = 2937354861) 195 mg/dL 70-110 H Lab Interpretation (test code = Abnormal 28681-4) [facility] GLUCOSE (AUTOMATED)2022-06-24 18:07:03 Test Item Value Reference Range Interpretation Comments POCT GLU (test code = 4031061611) 376 mg/dL 70-110 H Lab Interpretation (test code = Abnormal 45262-8) [facility] 17[facility]45:35 Test Item Value Reference Range Interpretation Comments MAGNESIUM (test code = 5612786408) 1.9 mg/dL 1.7-2.4 Lab Interpretation (test code = Normal 36022-7) [facility] (NA, K, CL, CO2, GLUCOSE, BUN, CREATININE, CA)2022-06-24 17:45:35 Test Item Value Reference Range Interpretation Comments NA (test code = 137 mmol/L 135-145 [id number]) K (test code = 3.3 mmol/L 3.5-5 L [id number]) CL (test code = 101 mmol/L 98-108 0084401806) CO2 TOTAL (test code = 25 mmol/L 23-31 4622204143) AGAP (test code = 2-16 7954453948) BUN (test code = 17 mg/dL 7-23 0474054027) GLUCOSE (test code = 264 mg/dL 70-110 H 4251999752) CREATININE (test code = 0.94 mg/dL 0.5-1.04 4000910118) CALCIUM (test code = 9.1 mg/dL 8.6-10.6 7857728460) eGFR (test code = mL/min/1.73m2 6155892759) WINDY (test code = WINDY) Association of Glomerular Filtration Rate (GFR) and Staging of Kidney Disease* + --+ --+ ------+| GFR (mL/min/1.73 m2) ?| With Kidney Damage ?| ?Without Kidney Damage+ --------+ --------+ +| ?>90 ?| ?Stage one ?| ? Normal ?+ ---+ ---+ -------+| ?60-89 ?| ?Stage two ?| ? Decreased GFR ? + --+ --+ ------+| ?30-59 ?| ?Stage three ?| ? Stage three ? + --+ --+ ------+| ?15-29 ?| ?Stage four ? | ? Stage four ?+ ---+ ---+ -------+| ?<15 (or dialysis) ? ?| ?Stage five ? | ? Stage five ?+ ---+ ---+ -------+ *Each stage assumes the associated GFR level has been in effect for at least three months. ?Stages 1 to 5, with or without kidney disease, indicate chronic kidney disease. Notes: Determination of stages one and two (with eGFR >59mL/min/1.73 m2) requires estimation of kidney damage for at least three months as defined by structural or functional abnormalities of the kidney, manifested by either:Pathological abnormalities or Markers of kidney damage (including abnormalities in the composition of the blood or urine or abnormalities in imaging tests). Lab Interpretation Abnormal (test code = 25945-1) [facility] WITHOUT [id number] 17:37:52 Test Item Value Reference Range Interpretation Comments WBC (test code = 6690-2) See_Comment [A utomated message] The system [employer] generated this result transmit timur reference range : 4.30 - 11.10 10*3/?L. The reference range was not used to interpret this result as normal/abnormal . RBC (test code = 789-8) See_Comment [Au tomated message] The system [employer] generated this result transmit timur reference range : 3.93 - 5.25 10* 6/?L. The reference r fernando was not used to interpret this result as normal/abnormal . HGB (test code = 718-7) 9.4 g/dL 11.6-15 L HCT (test code = 4544-3) 30.6 % 35.7-45.2 L MCH (test code = 785-6) 22.8 pg 25.9-32.8 L MCV (test code = 787-2) 74.3 fL 80.6-95.5 L MCHC (test code = 786-4) 30.7 g/dL 31.6-35.1 L PLT (test code = 777-3) See_Comment [Au Caskated message] The system [facility] generated this result transmit timur reference range : 166 - 358 10*3/?L. The reference range was not used to interpret this result as normal/abnormal . MPV (test code = 9.0 fL 9.5-12.9 L 81687-1) RDW-CV (test code = 16.6 % 12-15.5 H 788-0) RDW-SD (test code = 44.0 fL 39-49.9 65514-0) NRBC x10^3 (test code = See_Comment [Au tomated message] 1365290687) The system [employer] generated this result transmit timur reference range : 10*3/?L. The reference range was not used to interpret this result as normal/abnormal . NRBC/100 WBC (test code See_Comment [Au tomated message] = 8569329111) The system [facility] generated this result transmit timur reference range : 0.0 - 10.0 /100 WBC s. The reference r fernando was not used to interpret this result as normal/abnormal . IPF % (test code = 2755880738) Lab Interpretation (test Abnormal code = 39542-7) [facility] GLUCOSE (AUTOMATED)2022-06-24 13:05:03 Test Item Value Reference Range Interpretation Comments POCT GLU (test code = 4309079074) 175 mg/dL 70-110 H Lab Interpretation (test code = Abnormal 53090-4) [facility] GLUCOSE (AUTOMATED)2022-06-24 03:59:23 Test Item Value Reference Range Interpretation Comments POCT GLU (test code = 9352292261) 200 mg/dL 70-110 H Lab Interpretation (test code = Abnormal 00394-8) [facility] GLUCOSE (AUTOMATED)2022-06-23 22:39:44 Test Item Value Reference Range Interpretation Comments POCT GLU (test code = 4274125536) 210 mg/dL 70-110 H Lab Interpretation (test code = Abnormal 67766-8) [facility] GLUCOSE (AUTOMATED)2022-06-23 17:10:04 Test Item Value Reference Range Interpretation Comments POCT GLU (test code = 9783282548) 189 mg/dL 70-110 H Lab Interpretation (test code = Abnormal 81209-0) [facility] GLUCOSE (AUTOMATED)2022-06-23 12:33:02 Test Item Value Reference Range Interpretation Comments POCT GLU (test code = 3891086525) 193 mg/dL 70-110 H Lab Interpretation (test code = Abnormal 42244-9) [facility] GLUCOSE (AUTOMATED)2022-06-23 02:42:00 Test Item Value Reference Range Interpretation Comments POCT GLU (test code = 7856561732) 166 mg/dL 70-110 H Lab Interpretation (test code = Abnormal 58072-4) [facility] [id number] 23:14:43 Test Item Value Reference Range Interpretation Comments PHOSPHORUS (test code = 3.1 mg/dL 2.5-5 Slig ht hemolysis 2575436424) Lab Interpretation (test Normal code = 87514-2) [facility] GLUCOSE (AUTOMATED)2022-06-22 22:01:14 Test Item Value Reference Range Interpretation Comments POCT GLU (test code = 7507951038) 216 mg/dL 70-110 H Lab Interpretation (test code = Abnormal 19961-9) [facility] GLUCOSE (AUTOMATED)2022-06-22 16:56:03 Test Item Value Reference Range Interpretation Comments POCT GLU (test code = 9441286324) 170 mg/dL 70-110 H Lab Interpretation (test code = Abnormal 40271-6) [facility] GLUCOSE (AUTOMATED)2022-06-22 13:15:17 Test Item Value Reference Range Interpretation Comments POCT GLU (test code = 1142730053) 186 mg/dL 70-110 H Lab Interpretation (test code = Abnormal 73300-8) [facility] GLUCOSE (AUTOMATED)2022-06-22 00:55:28 Test Item Value Reference Range Interpretation Comments POCT GLU (test code = 6605619726) 201 mg/dL 70-110 H Lab Interpretation (test code = Abnormal 20448-0) [facility] 22:48:56 Test Item Value Reference Range Interpretation Comments Height (test code = in 9078589825) Weight (test code = lbs 4114567966) Systolic BP (test code = mmHg 2924263433) Diastolic BP (test code mmHg = 7872833431) Heart Rate (test code = bpm 1856343368) LVOT stroke volume (test 79.70 cm3 code = 3527721716) EF(Teich) (test code = 56.30 % 4307885981) LVIDD (test code = 4.60 cm 4315616850) LVIDS (test code = 3.30 cm 2314939692) Left Ventricular End 43.5 mL Systolic Volume by Teichholz Method (test code = 7234689) Left Ventricular End 99.6 mL Diastolic Volume by Teichholz Method (test code = 9767576) IVS (test code = 1.19 cm 8866206402) LVPWD (test code = 1.08 cm 2264816842) LVOT diameter (test code 2.05 cm = 0589301267) LVOT area (test code = 3.30 cm2 1965030618) FS (test code = 29 % 0028272293) MV Peak E Tian (test code 84.6 cm/s = 2613603645) MV Peak A Tian (test code 110.3 cm/s = 8692551885) E/A ratio (test code = ratio 5461566433) E wave decelartion time 0.25 s (test code = 5059859222) MV E/e' septal (test 4.0 cm/s code = 8909243478) LA Volume Index (BP) 36.7 mL/m2 (test code = 8474763753) LA volume (BP) (test 65.4 mL code = 9388128303) LVOT peak tian (test code 100.1 cm/s = 7334599880) LVOT mn grad (test code mmHg = 0683725525) BSA (test code = 1.78 m2 4468045623) LA size (test code = 3.4 cm 5785357110) LAV(MOD-sp2) (test code 61.30 mL = 8071785014) LAV(MOD-sp4) (test code 58.90 mL = 0368178544) Tapse (test code = 2.48 cm 2423994513) AV LVOT peak gradient mmHg (test code = 3859425592) LVOT peak VTI (test code 24.2 cm = 4482113117) LV V1 mean (test code = 64.80 cm/s 6551451448) MV Prop V (test code = 31.70 cm/s 7574398673) Ao root diam (test code 3.40 cm = 6309372866) Aortic root (test code = 3.4 cm 5444777518) Ao root annulus (test 3.4 cm code = 9035724650) PW (test code = 1.08 cm 0.6-1.5 4877241688) EF - 2D (test code = 56.30 % 22708855) Interventricular Septum 1.19 cm Diastolic Thickness by 2D (test code = 0216413) Left Ventricular Cardiac 4.8 L/min Output (test code = 1083901) Aortic HR (test code = BPM 8906622230) Aortic valve mean 86.9 cm/s velocity (test code = 4938694036) Ao peak tian (test code = 153.7 cm/s 3563445900) Ao VTI (test code = 33.7 cm 0228417620) AV area by cont VTI 2.4 cm2 (test code = 1695079624) AV area peak tian (test 2.2 cm2 code = 4033546713) Ao max PG (test code = 9.40 mm[Hg] 8159917198) AV peak gradient (test mmHg code = 9892428054) AV valve area (test code 2.37 cm2 = 9485018717) AV mean gradient (test mmHg code = 5865628491) IVC Diam Exp(MM) (test 1.87 cm code = 1019016151) IVC Diam Ins(MM) (test 0.78 cm code = 1632639852) Radiology Study observation (narrative) (test code = 06738-2) WINDY (test code = WINDY) ?Left?Ventricle: Left ventricle size is normal. Normal wall thickness. Septal motion is normal. . No regional wall motion abnormalities. Normal systolic function with a visually estimated EF of 55 - 60%. There is grade 2 diastolic dysfunction. Elevated left ventricular filling pressure. ?Right?Ventricle: Normal systolic function. ?Aortic?Valve: Mild transvalvular regurgitation. ?Tricuspid?Valve: Insufficient tricuspid regurgitation jet to estimate RVSP.RA pressure is 0-5 mmHg. ?Pericardium: No pericardial effusion. Left VentricleLeft ventricle size is normal. Normal wall thickness. Septal motion is normal. . No regional wall motion abnormalities. Normal systolic function with a visually estimated EF of 55 - 60%. There is grade 2 diastolic dysfunction. Elevated left ventricular filling pressure.Right VentricleRight ventricle size is normal. Normal systolic function.Left AtriumLeft atrium is mildly dilated.Right AtriumRight atrium size is normal.IVC/SVCIVC diameter is less than or equal to 21 mm and decreases greater than 50% during inspiration; therefore the estimated right atrial pressure is normal (~0-5 mmHg).Mitral ValveMitral valve structure is normal. Mild posterior mitral annular calcification. Mild transvalvular regurgitation. No stenosis.Tricuspid ValveTricuspid valve structure is normal. Insufficient tricuspid regurgitation jet to estimate RVSP.RA pressure is 0-5 mmHg.Aortic ValveNot well visualized. Mildly thickened cusps. Mild transvalvular regurgitation. No evidence of aortic stenosis.Pulmonic ValveNot well visualized. Valve structure is normal.Ascending AortaNormal sized annulus and sinus of Valsalva.PericardiumT he pericardium is normal. No pericardial effusion.Study DetailsStudy quality was adequate. A complete echocardiogram was performed using 2D, color flow Doppler and spectral Doppler. 5 mL of Lumason ultrasound enhancing agent used. Patient exhibited sinus bradycardia. [facility] GLUCOSE (AUTOMATED)2022-06-21 21:50:29 Test Item Value Reference Range Interpretation Comments POCT GLU (test code = 4759537862) 181 mg/dL 70-110 H Lab Interpretation (test code = Abnormal 23851-8) [facility] GLUCOSE (AUTOMATED)2022-06-21 20:55:06 Test Item Value Reference Range Interpretation Comments POCT GLU (test code = 9297681607) 159 mg/dL 70-110 H Lab Interpretation (test code = Abnormal 39714-1) [facility]-GLUCOSE [id number] 11:32:00 Test Item Value Reference Range Interpretation Comments POC-GLUCOSE METER 235 mg/dL 70-110 H : TESTED A T [facility] 6720 (BEAKER) (test code = [facility], 1538) [address]: Production Tech/Techni chika ID = [id number] for QUEEN LASSITER POCT-GLUCOSE [id number] 07:37:00 Test Item Value Reference Range Interpretation Comments POC-GLUCOSE METER 190 mg/dL 70-110 H : TESTED A T [facility] 6720 (BEAKER) (test code = [facility], 1538) 88047: Production Tech/Techni chika ID = [id number] for QUEEN LASSITER CBC W/PLT COUNT & AUTO [id number] 06:10:00 Test Item Value Reference Range Interpretation [...] PERCENT (BEAKER) (test code = 2801) POCT-GLUCOSE [id number] 22:16:00 Test Item Value Reference Range Interpretation Comments POC-GLUCOSE METER 275 mg/dL 70-110 H : TESTED A T [facility] 6720 (BEAKER) (test code = [facility], 153) 62506: Production Tech/Techni chika ID = [id number] for YRIS HENAO POCT-GLUCOSE [id number] 16:44:00 Test Item Value Reference Range Interpretation Comments POC-GLUCOSE METER 200 mg/dL 70-110 H : TESTED A T [facility] 6720 (BEAKER) (test code = [facility], 153) 60970: Production Tech/Techni chika ID = [id number] for QUEEN LASSITER POCT-GLUCOSE [id number] 12:11:00 Test Item Value Reference Range Interpretation Comments POC-GLUCOSE METER 180 mg/dL 70-110 H : TESTED A T [facility] 6720 (BEAKER) (test code = [facility], 1538) 14472: Production Tech/Techni chika ID = [id number] for SHAYY ALBRIGHT POCT-GLUCOSE [id number] 08:17:00 Test Item Value Reference Range Interpretation Comments POC-GLUCOSE METER 158 mg/dL 70-110 H : TESTED A T [facility] 6720 (BEAKER) (test code = [place], 1538) 26767: Production Tech/Techni chika ID = [id number] for SHAYY ALBRIGHT CBC W/PLT COUNT & AUTO [id number] 04:14:00 Test Item Value Reference Range Interpretation [...] PERCENT (BEAKER) (test code = 2801) POCT-GLUCOSE [id number] 16:12:00 Test Item Value Reference Range Interpretation Comments POC-GLUCOSE METER 233 mg/dL 70-110 H : TESTED A T [facility] 6720 (BEAKER) (test code = [facility], 1538) 13850: Production Tech/Techni chika ID = [id number] for SHAYY ALBRIGHT POCT-GLUCOSE [id number] 12:02:00 Test Item Value Reference Range Interpretation Comments POC-GLUCOSE METER 190 mg/dL 70-110 H : TESTED A T [facility] 6720 (BEAKER) (test code = [facility], 1538) 36866: Production Tech/Techni chika ID = [id number] for SHAYY ALBRIGHT STOOL CULTURE + SHIGA [id number] 09:19:00 Test Item Value Reference Range Interpretation Comments CULTURE (BEAKER) No Salmonella, Shigella (test code = 1095) or Campylobacter isolated POCT-GLUCOSE [id number] 07:46:00 Test Item Value Reference Range Interpretation Comments POC-GLUCOSE METER 174 mg/dL 70-110 H : TESTED A T [facility] 6720 (BEAKER) (test code = [facility], 1538) 39593: Production Tech/Techni chika ID = [id number] for SHAYY ALBRIGHT CBC W/PLT COUNT & AUTO [id number] 06:53:00 Test Item Value Reference Range Interpretation [...] 0-1 PERCENT (BEAKER) (test code = 2801) [id number] 06:20:00 Test Item Value Reference Range Interpretation Comments MAGNESIUM (BEAKER) 1.7 mg/dL 1.6-2.6 Specimen slightly (test code = 627) hemolyzed Production Tech ID - LATA WBASIC METABOLIC [id number] 06:20:00 Test Item Value Reference Range Interpretation [...] 697) EGFR (BEAKER) (test 68 mL/min/1.73 ESTIMA TIMUR GFR IS code = 1092) sq m NOT ACCURATE CREATININE CLEARANCE IN PREDICTING GLOMERULAR FILTRATION RATE . ESTIMATED GFR I S NOT APPLICABLE FOR DIALYSIS PATIEN TS. Production Tech ID Suman GUIDO WHEPATIC FUNCTION [id number] 06:20:00 Test Item Value Reference Range Interpretation [...] Specimen slightly (test code = 347) hemolyzed Production Tech ID - LATA WPOCT-GLUCOSE [id number] 21:46:00 Test Item Value Reference Range Interpretation Comments POC-GLUCOSE METER 181 mg/dL 70-110 H : TESTED A T [facility] 6720 (CALI) (test code = [place], 1538) 26292: Production Tech/Techni chika ID = [id number] for JEREMY GUPTA CT, BRAIN, WITHOUT [id number] 18:11:00FINAL REPORT CT, BRAIN, WITHOUT CONTRAST INDICATION: [...] lentiform nucleus. Generalized cerebral atrophy with ex vacuo dilatation of the ventricular system proportionate to sulci. Scattered foci of hypoattenuation within the periventricular and subcortical white matter are a nonspecific finding commonly attributed to chronic small vessel ischemic disease. Osseous structures: No fracture. No suspicious lesion. Right-sidedburr holes. Paranasal sinuses and mastoid air cells: No evidence of sinusitis. Mastoids are clear. Orbital contents: Globes are intact. IMPRESSION: Motion degraded exam. No convincing intracranial hemorrhage. If there is persistent clinical concern for intracranial pathology, MR examination is recommended for further characterization. Signed: Annmarie Burch Verified Date/Time: 03/26/2020 18:11:57 POCT-GLUCOSE [id number] 17:31:00 Test Item Value Reference Range Interpretation Comments POC-GLUCOSE METER 209 mg/dL 70-110 H : Notified RN/MD: (CALI) (test code = TESTED AT [facility] 67[address] 1538) [place], [address]: Production Tech/Techni chika ID = [id number] for MEERA LEMOS SHIGA TOXIN [id number] 15:19:00 Test Item Value Reference Range Interpretation Comments SHIGA TOXIN 1 (BEAKER) (test Not detected Not detected code = 2177) SHIGA TOXIN 2 (BEAKER) (test Not detected Not detected code = 2179) POCT-GLUCOSE [id number] 11:53:00 Test Item Value Reference Range Interpretation Comments POC-GLUCOSE METER 159 mg/dL 70-110 H : TESTED A T [facility] [address] (BEAKER) ([facility], 1538) 69481: Production Tech/Techni chika ID = [id number] for SANDRA HOLLIS STOOL PATH [id number] 11:36:00 Test Item Value Reference Range Interpretation Comments PATHOGEN EXAM CHARGED (BEAKER) (test Done code = 2381) POCT-GLUCOSE [id number] 07:11:00 Test Item Value Reference Range Interpretation Comments POC-GLUCOSE METER 146 mg/dL 70-110 H : TESTED A T [facility] 6720 (BEAKER) (test code = [place] [facility], 1538) 14576: Production Tech/Techni chika ID = [id number] for MILY GROVE [id number] 06:04:00 Test Item Value Reference Range Interpretation Comments MAGNESIUM (BEAKER) (test code = 1.9 mg/dL 1.6-2.6 627) Production Tech ID - PIAYA LBASIC METABOLIC [id number] 06:04:00 Test Item Value Reference Range Interpretation [...] 697) EGFR (BEAKER) (test 73 mL/min/1.73 ESTIMA TIMUR GFR IS code = 1092) sq m NOT ACCURATE CREATININE CLEARANCE IN PREDICTING GLOMERULAR FILTRATION RATE . ESTIMATED GFR I S NOT APPLICABLE FOR DIALYSIS PATIEN TS. Production Tech ID - PIAYA LHEPATIC FUNCTION [id number] 06:04:00 Test Item Value Reference Range Interpretation [...] (test code = 15 U/L 6-55 347) Production Tech ID - PIAYA LCBC W/PLT COUNT & AUTO [id number] 05:20:00 Test Item Value Reference Range Interpretation [...] PERCENT (BEAKER) (test code = 2801) POCT-GLUCOSE [id number] 21:12:00 Test Item Value Reference Range Interpretation Comments POC-GLUCOSE METER 154 mg/dL 70-110 H : TESTED A T [facility] 6720 (BEAKER) (test code = [facility], 1538) 03602: Production Tech/Techni chika ID = [id number] for KE BE, SAUDATU POCT-GLUCOSE [id number] 17:43:00 Test Item Value Reference Range Interpretation Comments POC-GLUCOSE METER 152 mg/dL 70-110 H : TESTED A T [facility] 6720 (BEAKER) (test code = [facility], 1538) 73981: Production Tech/Techni chika ID = [id number] for WI LLIS, PANCHO SARS-COV2/RT-PCR ([facility])2020-03-25 13:40:00 Test Item Value Reference Range Interpretation Comments SARS-COV2/RT-PCR (test code = Negative Not Detected, Negative 1765528) SARS-COV-2 PERFORMING LAB [facility] (test code = 0379091) Negative result for this test determines that [...] justifying the authorization of the emergency use ofin vitro diagnostic tests for detection and/or diagnosis of COVID-19 is terminated under Section 564(b)(2) of the Act or the EUA is revoked under Section 564(g) of the Act.Fact Sheet for Healthcare Prov iders:https://www.[employer]/sites/default/files/product/documents/Fact_Sheet_HC _Zpvshiauw_Gdxc_CPNB-UsA-2.pdfFact Sheet for Healthcare Patients:https://www.[employer]/sites/default/files/product/docume nts/Ynlw_Onwgs_Jpwexppt_Xuus_SUEH-PbJ-5.pdfPerforming Laboratory:[address]d[place], [place] [address]BXFD-AQBQWGL METER 2020-03-25 11:24:00 Test Item Value Reference Range Interpretation Comments POC-GLUCOSE METER 165 mg/dL 70-110 H : TESTED A T [facility] 6720 (BEAKER) (test code = [place], 1538) [address]: Production Tech/Techni chika ID = [id number] for SANDRA HOLLIS TSH/FREE T4 IF [id number] 10:59:00 Test Item Value Reference Range Interpretation Comments THYROID STIMULATING HORMONE 0.622 uIU/mL 0.350-4.940 (BEAKER) (test code = 772) Production Tech ID - WAGNER LHEMOGLOBIN [id number] 10:59:00 Test Item Value Reference Range Interpretation Comments HEMOGLOBIN A1C (BEAKER) (test code = 6.9 % 4.3-6.1 H 368) TROPONIN [id number] 10:50:00 Test Item Value Reference Range Interpretation [...] failure, acidosis, acute neurological disease, and persistent tachyarrhythmia.Production Tech ID - WAGNER LBASIC METABOLIC [id number] 10:42:00 Test Item Value Reference Range Interpretation [...] 697) EGFR (BEAKER) (test 58 mL/min/1.73 ESTIMA TIMUR GFR IS code = 1092) sq m NOT ACCURATE CREATININE CLEARANCE IN PREDICTING GLOMERULAR FILTRATION RATE . ESTIMATED GFR I S NOT APPLICABLE FOR DIALYSIS PATIEN TS. Production Tech ID - WAGNER LHEPATIC FUNCTION [id number] 10:42:00 Test Item Value Reference Range Interpretation [...] (test code = 10 U/L 6-55 347) Production Tech ID - WAGNER [id number] 10:41:00 Test Item Value Reference Range Interpretation Comments PHOSPHORUS (BEAKER) (test code = 3.2 mg/dL 2.3-4.7 604) Production Tech ID - WAGNER [id number] 10:41:00 Test Item Value Reference Range Interpretation Comments MAGNESIUM (BEAKER) (test code = 2.0 mg/dL 1.6-2.6 627) Production Tech ID - WAGNER LPOCT-GLUCOSE [id number] 09:10:00 Test Item Value Reference Range Interpretation Comments POC-GLUCOSE METER 116 mg/dL 70-110 H : [facility] (test code = [place], 1538) [address]: Production Tech/Techni chika ID = [id number] for CO LANCE NICHOLAS RAD, CHEST, 1 VIEW, NON [id number] 07:49:00Reason for exam:->chest painShould this be performed at the bedside?->YesFINAL REPORT CLINICAL HISTORY: chest pain TECHNIQUE: 1 view of the chest. COMPAR NIEVES: None IMPRESSION: There are linear bandlike opacities in the bilateral mid and lower lungs. There are no significant effusions. The cardiomediastinal silhouette is magnified by technique. Signed: Keturah Mensah MDReport Verified Date/Time: 03/25/2020 07:49:59 Reading Location: [facility] Radiology Reading Room C. DIFFICILE GDH [id number] 06:54:00 Test Item Value Reference Range Interpretation Comments CDT TOXIN (test code Negative Negative = 2645820197) CDT GDH ANTIGEN (test Negative Negative No ind ication of code = 3879311178) Clostridi um difficile infection and n o colonization. Discontinue ent perez isolation and t herapy. Testing performed by [employer] Rapid Cassette Assay. For GDH, published sensitivity of the assay is 98.7% compared to cytotoxicity testing. For Toxin AB, published sensitivity is 87.8% and specificity 99.4% compared to cytotoxicity testing.Verification of kit performance was done by the [facility] MicrobiologyLab prior to clinical use.URINALYSIS WITH MICROSCOPIC IF [id number] 06:35:00 Test Item Value Reference Range Interpretation [...] = 463) SOURCE(BEAKER) (test code = 2795) Production Tech ID - [auto]Production Tech ID - techURINALYSIS [id number] 06:35:00 Test Item Value Reference Range Interpretation Comments RBC UA (BEAKER) (test code = 519) 3 /HPF WBC UA (BEAKER) (test code = 520) 11 /HPF BACTERIA (BEAKER) (test code = 517) Rare SQUAMOUS EPITHELIAL (BEAKER) (test 1 /HPF code = 516) Production Tech ID - techPOCT-GLUCOSE [id number] 05:08:00 Test Item Value Reference Range Interpretation Comments POC-GLUCOSE METER 128 mg/dL 70-110 H : TESTED A T [facility] 6720 (BEAKER) (test code = [place], 1538) [address]: Production Tech/Techni chika ID = [id number] for As Meena beckett"
--- NOTE | 2022-06-27 12:50 | RAD REPORT ---
EXAM DESCRIPTION: CT - Head Brain Wo Cont - 06/27/2022 12:40 pm CLINICAL HISTORY: weakness Headache, drowsiness, alteration of awareness COMPARISON: Head Brain Wo Cont dated 06/19/2022; Head Brain Wo Cont dated 06/14/2022 TECHNIQUE: All CT scans are performed using dose optimization technique as appropriate and may inclu de automated exposure control or mA/KV adjustment according to patient size. FINDINGS: No intracranial hemorrhage, hydrocephalus or extra-axial fluid collection.Advanced general ized brain atrophy is present with moderate periventricular and deep white matter chronic microvascul ar ischemic changes.No areas of brain edema or evidence of midline shift. Vertebrobasilar atheroscler osis. The paranasal sinuses and mastoids are clear. Several right-sided ryne holes. IMPRESSION: No acute intracranial abnormality.
[2022-06-27 12:59] LABS: Absolute Lymphocytes (CBC) 1.6 K/uL (0.7-4.9); Hematocrit 31.9 % (36.0-45.0); Lymphocytes % 23.3 % (15.3-44.8); MCV 72.9 fL (80-100); MPV 7.4 fL (7.6-11.3); RBC Red Blood Cell Count 4.38 M/uL (3.86-4.86)
[2022-06-27 13:07] LABS: Urine Blood Negative (Negative); Urine Glucose Negative (Negative); Urine Protein Trace (Negative); Urine Specific Gravity 1.015 (1.005-1.030); Urine pH 5.5 (5.0-7.0)
[2022-06-27 13:15] LABS: Urine Crystals Unidentified Few /HPF (None Seen); Urine Mucus Slight /HPF (None Seen); Urine RBC <5 /HPF (None Seen)
[2022-06-27 13:18] LABS: Albumin 3.6 g/dL (3.4-5.0); Bilirubin Total 0.3 mg/dL (0.2-1.0); Magnesium 1.8 mg/dL (1.8-2.4); Potassium 3.5 mmol/L (3.5-5.1); Protein, Total 7.4 g/dL (6.4-8.2); Troponin High Sensitivity 11.3 pg/mL (<58.9)
--- NOTE | 2022-06-27 13:43 | RAD REPORT ---
EXAM DESCRIPTION: RAD - Chest Single View - 06/27/2022 1:32 pm CLINICAL HISTORY: AMS Chest pain. COMPARISON: Chest Single View dated 06/14/2022; Chest Single View dated 03/06/2022; Chest Single View dated 02/24/2022; Chest Single View dated 08/12/2021 FINDINGS: Portable technique limits examination quality. The lungs are grossly clear. Quite tortuous thoracic aorta. The heart is mildly prominent. No displac ed fractures. IMPRESSION: No acute intrathoracic process suspected.
--- NOTE | 2022-06-27 18:40 | ER ---
Nurse's Notes [facility] Name: Skylar Grossman Age: 87 yrs Sex: Female : 1935 Arrival Date: 06/27/2022 Time: 11:23 Bed 25 Private MD: Diagnosis: Syncope Near;Muscle weakness (generalized) Presentation: 06/27 11:23 Chief complaint: EMS states: toned out to house where pt lives with friend. Friend ld1 reports pt being discharged from [facility] yesterday - pt was not confused yesterday "but today she woke up confused and weak.". Coronavirus screen: At this time, the client does not indicate any symptoms associated with coronavirus-19. Ebola Screen: No symptoms or risks identified at this time. Initial Sepsis Screen: Does the patient meet any 2 criteria? No. Patient's initial sepsis screen is negative. Does the patient have a suspected source of infection? No. Patient's initial sepsis screen is negative. Risk Assessment: Do you want to hurt yourself or someone else? Patient reports no desire to harm self or others. Onset of symptoms was June 27, 2022. 11:23 Method Of Arrival: EMS: [facility] ld1 11:23 Acuity: FARIDA 3 ld1 Triage Assessment: 11:26 General: Appears in no apparent distress. comfortable, Behavior is calm, cooperative, ld1 appropriate for age. Pain: Denies pain. EENT: No signs and/or symptoms were reported regarding the EENT system. Neuro: Level of Consciousness is awake, alert, obeys commands, Oriented to person, place, time, situation. Cardiovascular: Capillary refill < 3 seconds Patient's skin is warm and dry. Respiratory: Airway is patent Respiratory effort is even, unlabored. GI: Abdomen is round non-distended. : No signs and/or symptoms were reported regarding the genitourinary system. Derm: No signs and/or symptoms reported regarding the dermatologic system. Musculoskeletal: No signs and/or symptoms reported regarding the musculoskeletal system. Historical: - Allergies: 11:26 Codeine (Upset stomach); ld1 11:26 meperidine HCl; ld1 11:26 Morphine; ld1 - PMHx: 11:26 CVA; Dementia; Depression; Diabetes - IDDM; GERD; Hypertension; High Cholesterol; ld1 - Immunization history:: Adult Immunizations up to date. - Social history:: Smoking status: Patient denies any tobacco usage or history of. Patient/guardian denies using alcohol. Screenin:28 Abuse screen: Denies threats or abuse. Denies injuries from another. Nutritional ld1 screening: No deficits noted. Tuberculosis screening: No symptoms or risk factors identified. Fall Risk None identified. Assessment: 11:28 Reassessment: See triage assessment. ld1 13:00 Reassessment: Patient appears in no apparent distress at this time. No changes from ld1 previously documented assessment. Patient and/or family updated on plan of care and expected duration. Pain level reassessed. 14:15 Reassessment: Patient appears in no apparent distress at this time. Patient and/or ld1 family updated on plan of care and expected duration. Pain level reassessed. Patient is alert, oriented x 3, equal unlabored respirations, skin warm/dry/pink. Patient denies pain at this time. 15:30 Reassessment: Patient appears in no apparent distress at this time. Patient and/or ld1 family updated on plan of care and expected duration. Pain level reassessed. Patient is alert, oriented x 3, equal unlabored respirations, skin warm/dry/pink. 16:15 Reassessment: ERP at bedside discussing care with family. Waiting on correctional case manager ld1 for further care instructions. 17:13 Reassessment: FAMILY PHONE NUMBER - NEPHHANY GROSSMAN - [phone]. ld1 Vital Signs: 11:23 BP 129 / 76; Pulse 97; Resp 18; Temp 98.0(O); Pulse Ox 94% on R/A; Weight 79.38 kg; ld1 Height 5 ft. 5 in. (165.10 cm); Pain 0/10; 12:11 BP 147 / 77; Pulse 84; Resp 16; Pulse Ox 95% on R/A; ld1 13:17 BP 147 / 91; Pulse 74; Resp 16; Pulse Ox 100% on R/A; ld1 15:31 BP 166 / 99; Pulse 104; Temp 18; Pulse Ox 100% on R/A; ld1 17:14 BP 182 / 151; Pulse 108; Resp 20; Pulse Ox 97% on R/A; ld1 17:53 BP 161 / 94; Pulse 102; Resp 18; Pulse Ox 96% on R/A; Pain 0/10; ld1 11:23 Body Mass Index 29.12 (79.38 kg, 165.10 cm) ld1 ED Course: 11:23 Patient arrived in ED. ld1 11:26 Triage completed. ld1 11:26 Arm band placed on right wrist. ld1 11:28 Patient has correct armband on for positive identification. Placed in gown. Bed in low ld1 position. Side rails up X2. Pulse ox on. NIBP on. Door closed. Noise minimized. Warm blanket given. Patient is placed in psych hold. 11:28 No provider procedures requiring assistance completed. Maintain EMS IV. Dressing ld1 intact. Good blood return noted. Site clean \\T\\ dry. Gauge \\T\\ site: 22G LH. 11:32 Rita Taveras MD is Attending Physician. sd2 11:38 Gena Gibbs RN is Primary Nurse. ld1 12:40 Head Brain Wo Cont In Process Unspecified. EDMS 13:34 XRAY Chest (1 view) In Process Unspecified. EDMS 19:20 IV discontinued, intact, bleeding controlled, No redness/swelling at site. ld1 Administered Medications: No medications were administered Medication: 11:28 VIS not applicable for this client. ld1 Outcome: 18:39 Discharge ordered by . sd2 19:20 Discharged to home via wheelchair, with family. ld1 19:20 Condition: stable 19:20 Discharge instructions given to patient, Instructed on discharge instructions, follow up and referral plans. Demonstrated understanding of instructions, follow-up care. 19:20 Patient left the ED. ld1 Signatures: Dispatcher [employer] EDMS Gena Gibbs, JOSE EDUARDO RN ld1 Rita Taveras MD MD sd2 Corrections: (The following items were deleted from the chart) 15:36 15:31 BP 143 / 124; Pulse 107bpm; Pulse Ox 100% RA; ld1 ld1
--- NOTE | 2022-06-27 18:40 | EDPHYS ---
Physician Documentation [facility] Name: Skylar Grossman Age: 87 yrs Sex: Female : 1935 Arrival Date: 06/27/2022 Time: 11:23 Bed 25 Private MD: ED Physician Rita Taveras HPI: 06/27 11:54 This 87 yrs old Female presents to ER via EMS with complaints of General Weakness. sd2 11:54 87-year-old female with a history of dementia presents via EMS with chief complaint of sd2 generalized weakness. They report her friend called due to her seeming confused and weak this morning. She was released from [facility] yesterday for unknown reasons. The patient denies any complaints at this time and states that she feels well. She is alert and oriented to person and place but not time. Unknown mental baseline.. Historical: - Allergies: 11:26 Codeine (Upset stomach); ld1 11:26 meperidine HCl; ld1 11:26 Morphine; ld1 - PMHx: 11:26 CVA; Dementia; Depression; Diabetes - IDDM; GERD; Hypertension; High Cholesterol; ld1 - Immunization history:: Adult Immunizations up to date. - Social history:: Smoking status: Patient denies any tobacco usage or history of. Patient/guardian denies using alcohol. ROS: 11:54 Constitutional: Negative for fever, chills, and weight loss, Eyes: Negative for injury, sd2 pain, redness, and discharge, Cardiovascular: Negative for chest pain, palpitations, and edema, Respiratory: Negative for shortness of breath, cough, wheezing. Abdomen/GI: Negative for abdominal pain, nausea, vomiting, diarrhea. MS/Extremity: Negative for injury and deformity, Skin: Negative for injury, rash, and discoloration, Neuro: Negative for headache, numbness and tingling. Exam: 11:54 Constitutional: This is a well developed, well nourished patient who is awake, alert, sd2 and in no acute distress. Head/Face: Normocephalic, atraumatic. Eyes: EOMI, normal conjunctiva bilaterally Chest/axilla: Normal chest wall appearance and motion. Nontender with no deformity. Old bruising noted to L breast. Cardiovascular: Regular rate and rhythm with a normal S1 and S2. No gallops, murmurs, or rubs. 2+ distal pulses. Respiratory: Lungs have equal breath sounds bilaterally, clear to auscultation and percussion. No rales, rhonchi or wheezes noted. No increased work of breathing, no retractions or nasal flaring. Abdomen/GI: Soft, non-tender, with normal bowel sounds. No guarding or rebound. No evidence of tenderness throughout. Old bruising noted to abdomen. Skin: Warm, dry with normal turgor. Normal color with no rashes, no lesions, and no evidence of cellulitis. MS/ Extremity: Pulses equal, no cyanosis. Neurovascular intact. Full, normal range of motion. Ambulatory without difficulty. Neuro: Awake and alert, GCS 14, oriented to person and place. HOWARD equally with good strength and normal sensation. Psych: Awake, alert, with orientation to person, place and time. Behavior, mood, and affect are within normal limits. 14:00 ECG was reviewed by the Attending Physician. NSR, rate 95, 1st degree AV block, RBBB sd2 present, TWIs, no STEMI criteria Vital Signs: 11:23 BP 129 / 76; Pulse 97; Resp 18; Temp 98.0(O); Pulse Ox 94% on R/A; Weight 79.38 kg; ld1 Height 5 ft. 5 in. (165.10 cm); Pain 0/10; 12:11 BP 147 / 77; Pulse 84; Resp 16; Pulse Ox 95% on R/A; ld1 13:17 BP 147 / 91; Pulse 74; Resp 16; Pulse Ox 100% on R/A; ld1 15:31 BP 166 / 99; Pulse 104; Temp 18; Pulse Ox 100% on R/A; ld1 17:14 BP 182 / 151; Pulse 108; Resp 20; Pulse Ox 97% on R/A; ld1 17:53 BP 161 / 94; Pulse 102; Resp 18; Pulse Ox 96% on R/A; Pain 0/10; ld1 11:23 Body Mass Index 29.12 (79.38 kg, 165.10 cm) ld1 MDM: 11:32 Patient medically screened. sd2 11:54 Differential Diagnosis Dehydration, electrolyte abnormality, UTI, PNA, anemia among sd2 others. Data reviewed: vital signs, nurses notes, EMS record. 18:37 Data reviewed: lab test result(s), EKG, radiologic studies. Counseling: I had a sd2 detailed discussion with the patient and/or guardian regarding: the historical points, exam findings, and any diagnostic results supporting the discharge/admit diagnosis, lab results, radiology results, the need for outpatient follow up, to return to the emergency department if symptoms worsen or persist or if there are any questions or concerns that arise at home. Medical screen evaluation completed. EMTALA emergency medical condition absent. ED course: Labs and imaging reviewed and grossly WNCL. This has been an ongoing chronic issue. Family is interested in SNF or rehab placement. Case Management was consulted and will retrieve records from [facility] showing at least a 3 midnight stay for placement. They will work on admitting the patient from home. Family and patient are comfortable with this plan and verbalize understanding of discharge plan and strict return precautions. . 06/27 12:02 Order name: CBC with Diff; Complete Time: 13:15 sd2 06/27 12:02 Order name: CMP; Complete Time: 13:38 sd2 06/27 12:02 Order name: Magnesium; Complete Time: 13:38 sd2 06/27 12:02 Order name: Troponin High Sensitivity; Complete Time: 13:38 sd2 06/27 12:02 Order name: BNP; Complete Time: 13:38 sd2 06/27 12:02 Order name: Procalcitonin; Complete Time: 13:38 sd2 06/27 12:02 Order name: EKG - Nurse/Tech; Complete Time: 14:07 sd2 06/27 12:02 Order name: XRAY Chest (1 view); Complete Time: 14:43 sd2 06/27 12:02 Order name: Urine Dipstick-Ancillary (obtain specimen); Complete Time: 13:17 sd2 06/27 12:02 Order name: Urine Microscopic Only; Complete Time: 13:38 sd2 06/27 12:40 Order name: Head Brain Wo Cont; Complete Time: 12:55 EDMS 06/27 13:07 Order name: Urine Dipstick-Ancillary; Complete Time: 13:15 EDMS Administered Medications: No medications were administered Disposition Summary: 06/27/22 18:39 Discharge Ordered Location: Home sd2 Problem: an ongoing problem sd2 Symptoms: have improved sd2 Condition: Stable sd2 Diagnosis - Syncope Near sd2 - Muscle weakness (generalized) sd2 Followup: sd2 - With: Private Physician - When: 2 - 3 days - Reason: Recheck today's complaints, Continuance of care, Re-evaluation by your physician Discharge Instructions: - Discharge Summary Sheet sd2 - Near-Syncope sd2 - Syncope sd2 Forms: - Medication Reconciliation Form sd2 - Thank You Letter sd2 - Antibiotic Education sd2 - Prescription Opioid Use sd2 Signatures: Dispatcher [employer] EDGena Peterson RN RN ld1 Rita Taveras MD MD sd2 Corrections: (The following items were deleted from the chart) 12:40 12:37 CT-HEAD/BRAIN W/O CONTRAST ordered. EDMS EDMS
[2022-06-27 19:29] VITALS: TEMP 18
[2022-06-27 19:31] VITALS: BP 161/94; O2SAT 96
--- NOTE | 2022-06-28 14:04 | EKG ---
Test Date: 2022-06-27 Test Time: 13:55:26 Category Manager: JULIANE MEASUREMENT RESULTS: Intervals: Rate: 95 UT: 220 QRSD: 132 QT: 422 QTc: 530 [place]: P: 87 UT: 220 QRS: 60 T: -36 INTERPRETIVE STATEMENTS: Sinus rhythm with 1st degree AV block Right bundle branch block T wave abnormality, consider inferolateral ischemia Abnormal ECG Compared to ECG 06/19/2022 11:09:45 T-wave abnormality now present Possible ischemia now present Sinus bradycardia no longer present Sinus arrhythmia no longer present Electronically Signed On 06-28-22 14:01:48 CDT by Adrian Martin
== END 2022-06-27 19:20 | disposition home or self-care (01) ==
LOC: ER 11:18
DX: R55 Syncope and collapse (principal); M62.81 Muscle weakness (generalized); Z88.6 Allergy status to analgesic agent; I10 Essential (primary) hypertension; E11.9 Type 2 diabetes mellitus without complications; F03.90 Unspecified dementia, unspecified severity, without behavioral disturbance, psychotic disturbance, mood disturbance, and anxiety; Z86.73 Personal history of transient ischemic attack (TIA), and cerebral infarction without residual deficits
CPT/HCPCS: 36415; 70450; 71045; 80053; 81003; 81015; 83735; 83880; 84145; 84484; 85025; 93005; 99284

== ENCOUNTER 2022-07-06 11:58 | Emergency (ER) | payer OTHER ==
--- OUTSIDE RECORDS SUMMARY | 2022-07-06 12:11 | XMS REPORT | Continuity of Care Document ---
:1935 Author Organization [facility] t Address [address] [place] [address] Care Team Providers Name Role Phone Pcp MD, No Primary Care Physician Unavailable JUAQUIN MCINTYRE Attending Clinician Unavailable Colleen WHITT, Jamil Reeder Attending Clinician Unavailable ACACIA DEL TORO Attending Clinician Unavailable Srinath Cohen DO Attending Clinician Alverto GABRIEL, Acacia Landaverde Attending Clinician Ca Meléndez MD Attending Clinician Bryan GABRIEL, Harini Attending Clinician [phone] Therapy, Ang [facility] Attending Clinician Unavailable Unknown, Attending Attending Clinician Unavailable UNKNOWN, ATTENDING Attending Clinician Unavailable Marciano WHITT, Paco Alejandra Attending Clinician Unavailable Only, Ang Db Test Attending Clinician Unavailable Jud Parra Attending Clinician JUD CHUA Attending Clinician Unavailable Doctor Unassigned, [place] Attending Clinician Unavailable JUAQUIN MCINTYRE Admitting Clinician Unavailable ACACIA DEL TORO Admitting Clinician Unavailable Acacia Del Toro MD Admitting Clinician LUIS E DOMINGUEZ Admitting Clinician Unavailable Payers Payer Name Policy Type Policy Number Effective Date Expiration Date S ource MEDICARE A B [id number] 1998 00:00:00 [facility] [id number] 2019 HEALTHCARE 00:00:00 Problems Condition Condition Condition Status Onset Resolution [...] Formattin ity of 00:00: g of this [place] note Medical might be Branch different from the original. Added automatic ally from request for surgery [id number] Acute Acute Disease Active [facility] encephal[facility] [...] Formattin ity of 00:00: g of this [place] note Medical might be Branch different from the original. 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 Right Neuralgia, Neuralgia, Disease Active Overview : Univers neuritis, neuritis, 3- Formattin i ty of and and 00:00: g of this [place] radiculiti radiculiti 00 note Me dical s, s, might be Branch unspecifie unspecifie different d d from the original. Cervical radiculop athy Osteoarthr Osteoarthr Disease Active Overview : Univers itis itis 3-26 Formattin ity of 00:00: g of this [place] 00 note Medical might be Branch different from the original. 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 Allergies, Adverse Reactions, Alerts Allergy Allergy Status Severity Reaction(s) Onset Inactive Treating Comm ents Source Name Type Date Date Clinician CODEINE Allergy Active 2020-[address] [facility] 7-15 [...] s Branch CODEINE DRUG Active High Anaphylaxis 2005- Univ ers INGREDI 0-04 ity of 00:00: [place] 00 Medical Branch Codeine Propensi Active Anaphylaxis 2005- Un teo ty to 0-04 ity of adverse 00:00: [place] reaction 00 Medical s to Branch drug NO KNOWN Allergy Active [facility] ALLERG[facility] S Family History Family Member Diagnosis Comments Start Date Stop Date Source Natural father High blood pressure [facility] Social History Social Habit Start Date Stop Date Quantity Comments Source History SDOH [facility] Alcohol Binge Medical Nataliia ter History SDOH [facility] Alcohol Comment Medical C enter History SDOH [facility] Alcohol Std Medical Cente r Drinks History SDOH 2022-06-28 2022-06-28 2 [facility] Med 00:00:00 00:00:00 [place] Medic al Branch History SDOH 2022-06-28 2022-06-28 2 [facility] Non-Med 00:00:00 00:00:00 [place] M edical Branch Exposure to 2022-06-10 2022-06-20 Not sure [facility] SARS-CoV-2 00:00:00 14:10:00 [place] Medical (event) Branch History SDOH 2020-03-27 2020-03-[address] [facility] Alcohol Frequency 00:00:00 00:00:00 [facility] Tobacco use and 2020-03-26 2020-03-[address] [facility] exposure 00:00:00 00:00:00 [facility] Alcohol intake 2020-03-26 2020-03-[address] [facility] 00:00:00 00:00:00 non-drinker of Medical Ce nter alcohol (finding) Sex Assigned At [address] [facility] 00:00:00 00:00:00 [facility] Smoking Status Start Date Stop Date Source Never smoked tobacco [facility] Medications Ordered Filled Start Stop Current Ordering Indication Dosage Frequency Signature Comments Components Source Medication Medication Date Date Medication? Clinician (SIG) Name Name amitriptyli 2021-09- Yes [id number] 25mg Take 1 Univers ne 25 mg 0-23 10-31 tablet by ity o f tablet 00:00: 04:59 mouth at [place] 00 :00 bedtime Medical for 7 Branch days. amitriptyli 2021-09- Yes [id number] 25mg Take 1 Univers ne 25 mg 0-23 10-31 tablet by ity o f tablet 00:00: 04:59 mouth at [place] 00 :00 bedtime Medical for 7 Branch days. amitriptyli 2021-09- Yes [id number] 25mg Take 1 Univers ne 25 mg 0-23 10-31 tablet by ity o f tablet 00:00: 04:59 mouth at [place] 00 :00 bedtime Medical for 7 Branch days. tamsulosin 2021-09 Yes .4mg 0.4 mg, Univ ers (FLOMAX) 0-16 Oral, QHS, ity o f capsule 0.4 02:00: First dose [place] mg 00 on [facility] 06/25/22 Branch at 2100, Until Discontinu ed, Routine amLODIPine 2021-09 Yes 5mg 5 mg, Univer s (NORVASC) 0-16 Oral, QHS, ity of tablet 5 mg 02:00: First dose [place] 00 on [facility] 06/25/22 Branch at 2100, Until Discontinu ed, Routine tamsulosin 2021-09- No .4mg 0.4 mg, Uni vers (FLOMAX) 0-16 10-15 Oral, QHS, ity of capsule 0.4 02:00: 21:09 First dose [place] mg 00 :41 on [facility] 06/25/22 Branch at 2100, Until Discontinu ed, Routine amLODIPine 2021-09- No 5mg 5 mg, Unive rs (NORVASC) 0-16 10-15 Oral, QHS, ity of tablet 5 mg 02:00: 21:09 First dose [place] 00 :41 on [facility] 06/25/22 Branch at 2100, Until Discontinu ed, Routine pantoprazol 2021-09- Yes [id number] 40mg Take 1 Univers e 0-16 01-15 tablet by ity of (PROTONIX) 00:00: 05:59 mouth in [place] 40 mg EC 00 :00 the Medical tablet morning Branch for 90 days. vitamin 2021-09- Yes [id number] 1000ug Take 1 U nivers B-12 1,000 0-16 01-15 tablet by ity of mcg tablet 00:00: 05:59 mouth in [place] 00 :00 the Medical morning Branch for 90 days. pantoprazol 2021-09- Yes [id number] 40mg Take 1 Univers e 0-16 01-15 tablet by ity of (PROTONIX) 00:00: 05:59 mouth in [place] 40 mg EC 00 :00 the Medical tablet morning Branch for 90 days. vitamin 2021-09- Yes [id number] 1000ug Take 1 U nivers B-12 1,000 0-16 01-15 tablet by ity of mcg tablet 00:00: 05:59 mouth in [place] 00 :00 the Medical morning Branch for 90 days. pantoprazol 2021-09- Yes [id number] 40mg Take 1 Univers e 0-16 01-15 tablet by ity of (PROTONIX) 00:00: 05:59 mouth in [place] 40 mg EC 00 :00 the Medical tablet morning Branch for 90 days. vitamin 2021-09- Yes [id number] 1000ug Take 1 U nivers B-12 1,000 0-16 01-15 tablet by ity of mcg tablet 00:00: 05:59 mouth in [place] 00 :00 the Medical morning Branch for 90 days. vitamin 2021-09 Yes 1000ug 1,000 mcg, Un teo B-12 0-15 Oral, ity of (CYANOCOBAL 14:00: DAILY, [place] CODY[place] 00 First dose Medical tablet (after Branch 1,000 mcg last modificati on) on 06/25/22 at 0900, Until Discontinu ed, Routine magnesium 2021-09- No 2g 2 g, IV Univ ers sulfate in 0-15 10-15 Piggyback, it y of water 2 14:00: 14:38 Administer [place] gram/50 mL 00 :00 over 60 Medica l (4 %) Minutes, Branch infusion 2 ONCE, 1 g dose, On 06/25/22 at 0900, Routine vitamin 2021-09- No 1000ug 1,000 mcg, U nivers B-12 0-15 10-15 Oral, ity of (CYANOCOBAL 14:00: 21:09 DAILY, [place] CODY) 00 :41 First dose Medical tablet (after Branch 1,000 mcg last modificati on) on 06/25/22 at 0900, Until Discontinu ed, Routine KCL 2021-09- No 40meq 40 mEq, Univers (KLOR-CON 0-15 10-15 Oral, ity of M20) tablet 13:45: 13:34 ONCE, 1 [place] 40 mEq 00 :00 dose, On Medical [facility] Branch 06/25/22 at 0845, Routine levETIRAcet 2021-09 Yes 250mg 250 mg, Un teo am (KEPPRA) 0-15 Oral, BID, it y of tablet 250 13:00: First dose [place] mg 00 on [facility] 06/25/22 Branch at 0800, Until Discontinu ed, Routine levETIRAcet 2021-09- No 250mg 250 mg, U nivers am (KEPPRA) 0-15 10-15 Oral, BID, i ty of tablet 250 13:00: 21:09 First dose [place] mg 00 :41 on [facility] 06/25/22 Branch at 0800, Until Discontinu ed, Routine PEPCID 20 2021-09- No prn Univers MG ORAL TAB 0-15 10-15 ity of 12:45: 00:00 [place] 24 :00 Medical Branch B COMPLEX 1 2021-09- No None Unive rs ORAL TAB 0-15 10-15 Entered ity of 12:45: 00:00 [place] 24 :00 Medical Branch M-VIT ORAL 2021-09- No None Univer s 0-15 10-15 Entered ity of 12:45: 00:00 [place] 24 :00 Medical Branch PEPCID 20 2021-09- No prn Univers MG ORAL TAB 0-15 10-15 ity of 12:45: 00:00 [place] 24 :00 Medical Branch B COMPLEX 1 2021-09- No None Unive rs ORAL TAB 0-15 10-15 Entered ity of 12:45: 00:00 [place] 24 :00 Medical Branch M-VIT ORAL 2021-09- No None Univer s 0-15 10-15 Entered ity of 12:45: 00:00 [place] 24 :00 Medical Branch metFORMIN 2021-09- Yes [id number] 500mg Take 1 Univers 500 mg 0-15 -14 tablet by ity of tablet 00:00: 05:59 mouth in [place] 00 :00 the Medical morning Branch and 1 tablet in the evening. Take with meals. Do all this for 90 days. tamsulosin 2021-09- Yes [id number] .4mg Take 1 Univers 0.4 mg 24 0-15 -14 capsule by ity of hr capsule 00:00: 05:59 mouth at [place] 00 :00 bedtime Medical for 90 Branch days. amLODIPine 2021-09- Yes [id number] 5mg Take 1 Univers 5 mg tablet 0-15 -14 tablet by it y of 00:00: 05:59 mouth at [place] 00 :00 bedtime Medical for 90 Branch days. levETIRAcet 2021-09- Yes [id number] 250mg Take 1 Univers am 250 mg 0-15 -14 tablet by ity of tablet 00:00: 05:59 mouth in [place] 00 :00 the Medical morning Branch and 1 tablet in the evening. Do all this for 90 days. lisinopriL 2021-09- Yes [id number] 20mg Take 1 Univers 20 mg 0-15 -14 tablet by ity of tablet 00:00: 05:59 mouth in [place] 00 :00 the Medical morning Branch and 1 tablet in the evening. Do all this for 90 days. FLUoxetine 2021-09- Yes [id number] 20mg Take 1 Univers 20 mg 0-15 -14 capsule by ity of capsule 00:00: 05:59 mouth in [place] 00 :00 the Medical morning Branch for 90 days. memantine 2021-09- Yes [id number] 10mg Take 1 U nivers 10 mg 0-15 -14 tablet by ity of tablet 00:00: 05:59 mouth in [place] 00 :00 the Medical morning Branch and 1 tablet in the evening. Do all this for 90 days. pyridostigm 2021-09- Yes [id number] 60mg Take 1 Univers ine 60 mg 0-15 -14 tablet by ity of tablet 00:00: 05:59 mouth as [place] 00 :00 needed for Medical Other Branch (HYPOTENSI ON) for up to 90 days. simvastatin 2021-09- Yes [id number] 20mg Take 1 Univers 20 mg 0-15 -14 tablet by ity of tablet 00:00: 05:59 mouth at [place] 00 :00 bedtime Medical for 90 Branch days. aspirin 81 2021-09- Yes [id number] 81mg Take 1 Univers mg chewable 0-15 -14 tablet by it y of tablet 00:00: 05:59 mouth in [place] 00 :00 the [facility] for 90 days. metFORMIN 2021-09- Yes [id number] 500mg Take 1 Univers 500 mg 0-15 -14 tablet by ity of tablet 00:00: 05:59 mouth in [place] 00 :00 the [facility] and 1 tablet in the evening. Take with meals. Do all this for 90 days. tamsulosin 2021-09- Yes [id number] .4mg Take 1 Univers 0.4 mg 24 0-25 09- capsule by ity of hr capsule 00:00: 05:59 mouth at [facility] 00 :00 bedtime [facility] for 90 Branch days. amLODIPine 2021-09- Yes [id number] 5mg Take 1 Univers 5 mg tablet 009-24 tablet by it y of 00:00: 05:59 mouth at [place] 00 :00 bedtime [facility] for 90 Branch days. levETIRAcet 2021-09- Yes [id number] 250mg Take 1 Univers am 250 mg 009-24 tablet by ity of tablet 00:00: 05:59 mouth in [place] 00 :00 the [facility] and 1 tablet in the evening. Do all this for 90 days. lisinopriL 2021-09- Yes [id number] 20mg Take 1 Univers 20 mg 0-09-24 tablet by ity of tablet 00:00: 05:59 mouth in [place] 00 :00 the [facility] and 1 tablet in the evening. Do all this for 90 days. FLUoxetine 2021-09- Yes [id number] 20mg Take 1 Univers 20 mg 0-15 - capsule by ity of capsule 00:00: 05:59 mouth in [place] 00 :00 the [facility] for 90 days. memantine 2021-09- Yes [id number] 10mg Take 1 U nivers 10 mg 0-15 - tablet by ity of tablet 00:00: 05:59 mouth in [place] 00 :00 the [facility] morning [place] and 1 tablet in the evening. Do all this for 90 days. pyridostigm 2021-09- Yes [id number] 60mg Take 1 Univers ine 60 mg 0-15 -14 tablet by ity of tablet 00:00: 05:59 mouth as [place] 00 :00 needed for Medical Other Branch (HYPOTENSI ON) for up to 90 days. simvastatin 2021-09- Yes [id number] 20mg Take 1 Univers 20 mg 0-15 -14 tablet by ity of tablet 00:00: 05:59 mouth at [place] 00 :00 bedtime Medical for 90 Branch days. aspirin 81 2021-09- Yes [id number] 81mg Take 1 Univers mg chewable 0-15 -14 tablet by it y of tablet 00:00: 05:59 mouth in [place] 00 :00 the Medical morning Branch for 90 days. KCL 20 mEq 2021-09- Yes [id number] 40meq Take 2 Univers tablet 0-09-24 tablets by ity of 00:00: 05:59 mouth in [place] 00 :00 the Medical morning Branch for 90 days. metFORMIN 2021-09- Yes [id number] 500mg Take 1 Univers 500 mg 0- tablet by ity of tablet 00:00: 05:59 mouth in [place] 00 :00 the Medical morning Branch and 1 tablet in the evening. Take with meals. Do all this for 90 days. tamsulosin 2021-09- Yes [id number] .4mg Take 1 Univers 0.4 mg 24 009-24 capsule by ity of hr capsule 00:00: 05:59 mouth at [facility] 00 :00 bedtime Medical for 90 Branch days. amLODIPine 2021-09- Yes [id number] 5mg Take 1 Univers 5 mg tablet 009-24 tablet by it y of 00:00: 05:59 mouth at [place] 00 :00 bedtime Medical for 90 Branch days. levETIRAcet 2021-09- Yes [id number] 250mg Take 1 Univers am 250 mg 0-25 09-14 tablet by ity of tablet 00:00: 05:59 mouth in [place] 00 :00 the Medical morning Branch and 1 tablet in the evening. Do all this for 90 days. lisinopriL 2021-09- Yes [id number] 20mg Take 1 Univers 20 mg 0-15 -14 tablet by ity of tablet 00:00: 05:59 mouth in [place] 00 :00 the Medical morning Branch and 1 tablet in the evening. Do all this for 90 days. FLUoxetine 2021-09- Yes [id number] 20mg Take 1 Univers 20 mg 0-15 01-14 capsule by ity of capsule 00:00: 05:59 mouth in [place] 00 :00 the Medical morning Branch for 90 days. memantine 2021-09- Yes [id number] 10mg Take 1 U nivers 10 mg 0-15 -14 tablet by ity of tablet 00:00: 05:59 mouth in [place] 00 :00 the Medical morning Branch and 1 tablet in the evening. Do all this for 90 days. pyridostigm 2021-09- Yes [id number] 60mg Take 1 Univers ine 60 mg 0-15 -14 tablet by ity of tablet 00:00: 05:59 mouth as [place] 00 :00 needed for Medical Other Branch (HYPOTENSI ON) for up to 90 days. simvastatin 2021-09- Yes [id number] 20mg Take 1 Univers 20 mg 0-15 -14 tablet by ity of tablet 00:00: 05:59 mouth at [place] 00 :00 bedtime Medical for 90 Branch days. aspirin 81 2021-09- Yes [id number] 81mg Take 1 Univers mg chewable 0-15 -14 tablet by it y of tablet 00:00: 05:59 mouth in [place] 00 :00 the Medical morning Branch for 90 days. KCL 20 mEq 2021-09- Yes [id number] 40meq Take 2 Univers tablet 0-15 -14 tablets by ity of 00:00: 05:59 mouth in [place] 00 :00 the Medical morning Branch for 90 days. gabapentin 2021-09- Yes [id number] 300mg Take 1 Univers 300 mg 0-15 12-15 capsule by ity of capsule 00:00: 05:59 mouth as [place] 00 :00 needed for Medical Pain Branch (scale 4-6) for up to 60 days. gabapentin 2021-09- Yes [id number] 300mg Take 1 Univers 300 mg 0-15 12-15 capsule by ity of capsule 00:00: 05:59 mouth as [place] 00 :00 needed for Medical Pain Branch (scale 4-6) for up to 60 days. gabapentin 2021-09- Yes [id number] 300mg Take 1 Univers 300 mg 0-15 12-15 capsule by ity of capsule 00:00: 05:59 mouth as [place] 00 :00 needed for Medical Pain Branch (scale 4-6) for up to 60 days. amitriptyli 2021-09- Yes [id number] 100mg Take 2 Univers ne 50 mg 0-15 10-23 tablets by ity of tablet 00:00: 04:59 mouth at [place] 00 :00 bedtime Medical for 7 Branch days. amitriptyli 2021-09- Yes [id number] 100mg Take 2 Univers ne 50 mg 0-15 10-23 tablets by ity of tablet 00:00: 04:59 mouth at [place] 00 :00 bedtime Medical for 7 Branch days. amitriptyli 2021-09- Yes [id number] 100mg Take 2 Univers ne 50 mg 0-15 10-23 tablets by ity of tablet 00:00: 04:59 mouth at [place] 00 :00 bedtime Medical for 7 Branch days. amLODIPine 2021-09- No 10mg 10 mg, Univ ers (NORVASC) 0- 10-15 Oral, ity of tablet 10 14:00: 12:15 DAILY, [place] mg 00 :01 First dose Medical (after Branch last modificati on) on Mon06/24/22 at 0900, Until Discontinu ed, Routine lidocaine 2021-09- No ONCE INTRA U nivers 2% 06-24 PROCEDURE, ity of (XYLOCAINE) 13:31: 13:36 Starting [place] 20 mg/mL (2 40 :35 on Mon Medica l %) 06/24/22 Branch injection at 0831, Until Mon06/24/22 at 0836, Routine, CV Intraproce dure vancomycin 2021-09- No CONTINUOUS Univers 1000 mg in 006-24 PRN, ity of NS 200 mL 13:30: 13:30 Starting [place] as RTU IV 55 :55 on Fri Medical Piggyback 06/24/22 Branch at 0830, Until Mon06/24/22 at 0830, Administer over 60 Minutes, CV Intraproce dure metFORMIN 2021-09 Yes 500mg 500 mg, Univ ers (GLUCOPHAGE 0-13 Oral, BID ity of ) tablet 22:00: MEALS, [place] 500 mg 00 First dose Medical on [place] Branch 06/23/22 at 1700, Until Discontinu ed, Routine metFORMIN 2021-09 No 500mg 500 mg, Uni vers (GLUCOPHAGE 0-23 06- Oral, BID it y of ) tablet 22:00: 21:09 MEALS, [place] 500 mg 00 :41 First dose Medical on [facility] 06/23/22 at 1700, Until Discontinu ed, Routine amLODIPine 2021-09 No 5mg 5 mg, Unive rs (NORVASC) 0- Oral, ity of tablet 5 mg 16:52: 17:31 ONCE, 1 [place] 00 :00 dose, On Medical [facility] 06/23/22 at 1200, Routine captopriL 2021-09 No 12.5mg 12.5 mg, U nivers (CAPOTEN) 0-23 06- Oral, ity of tablet 12.5 04:45: 04:56 ONCE, 1 [place] mg 00 :00 dose, On [facility] 06/22/22 at 2345, Routine labetaloL 2021-09 No 5mg 5 mg, Slow U nivers (NORMODYNE) 006-23 IV Push, ity of injection 5 03:45: 03:12 ONCE, 1 [place] mg 00 :00 dose, On [facility] 06/22/22 at 2245, Routine vitamin 2021-09 No 1000ug 1,000 mcg, U nivers B-12 0-08 20- Oral, ity of (CYANOCOBAL 20:15: 12:15 DAILY, [place] CODY) 00 :01 First dose Medical tablet (after Branch 1,000 mcg last modificati on) on [facility] 06/22/22 at 1515, Until Discontinu ed, Routine tamsulosin 2021-09 No .4mg 0.4 mg, Uni vers (FLOMAX) 0- 10-15 Oral, ity of capsule 0.4 16:30: 12:15 DAILY, [place] mg 00 :01 First dose Medical on [facility] 06/22/22 at 1130, Until Discontinu ed, Routine pantoprazol 2021-09 Yes 40mg 40 mg, Univ ers e 0-12 Oral, ity of (PROTONIX) 14:00: DAILY, [place] EC tablet 00 First dose Medi joyce 40 mg on Mon Branch 06/22/22 at 0900, Until Discontinu ed, Routine pantoprazol 2021-09 No 40mg 40 mg, Uni vers e 0-12 10-15 Oral, ity of (PROTONIX) 14:00: 21:09 DAILY, [place] EC tablet 00 :41 First dose Medi joyce 40 mg on Mon Branch 06/22/22 at 0900, Until Discontinu ed, Routine iron 2021-09- No 1000mg 1,000 mg, Unive rs dextran 0-12 -12 IV ity of (INFED) 13:15: 19:42 Infusion, [place] 1,000 mg in 00 :40 ONCE, 1 Medic al NaCl 0.9% dose, On Branch (NS) 500 mL [facility] IV infusion 06/22/22 at 0815, Administer over 1.5 Hours, 500 mL iron 2021-09 No 25mg 25 mg, IV Univers dextran 006-22 Piggyback, ity o f (INFED) 25 13:15: 17:35 ONCE, 1 [place] mg in NaCl 00 :53 dose, On Medic al 0.9% (NS) [facility] Branch 100 mL IV 06/22/22 piggyback at 0815, Administer over 15 Minutes, 100 mL magnesium 2021-09 No 4g 4 g, IV Univ ers sulfate in 012 Piggyback, it y of water 4 12:15: 15:48 at 25 [place] gram/50 mL 00 :01 mL/hr Medical (8 %) IV Administer Branc h Piggyback 4 over 120 g Minutes, ONCE, 1 dose, On Mon06/22/22 at 0715, Routine amLODIPine 2021-09 No 5mg 5 mg, Unive rs (NORVASC) 0-12 10-13 Oral, ity of tablet 5 mg 08:30: 16:53 DAILY, [place] 00 :37 First dose Medical on [facility] Branch 06/22/22 at 0330, Until Discontinu ed, Routine melatonin 2021-09 Yes 3mg 3 mg, Univers (MELATIN) 0-12 Oral, QHS, ity of tablet 3 mg 02:00: First dose [place] 00 on [facility] 06/21/22 Branch at 2100, Until Discontinu ed, Routine melatonin 2021-09- No 3mg 3 mg, Univer s (MELATIN) 0-12 10-15 Oral, QHS, ity of tablet 3 mg 02:00: 21:09 First dose [place] 00 :41 on [facility] 06/21/22 Branch at 2100, Until Discontinu ed, Routine hydrOXYzine 2021-09- No 10mg 10 mg, Uni vers (ATARAX) 0-12 10-12 Oral, ity of tablet 10 02:00: 01:08 ONCE, 1 [place] mg 00 :00 dose, On [facility] 06/21/22 at 2100, Routine enoxaparin 2021-09 Yes 40mg 40 mg, Unive rs (LOVENOX) 0-11 Subcutaneo ity of injection 22:00: [place], DAILY, [place] 40 mg 00 First dose Medical on [facility] 06/21/22 at 1700, Until Discontinu ed, Routine enoxaparin 2021-09- No 40mg 40 mg, Univ ers (LOVENOX) 0-11 10-15 Subcutaneo ity of injection 22:00: 21:09 us, DAILY, [place] 40 mg 00 :41 First dose Medical on [facility] 06/21/22 at 1700, Until Discontinu ed, Routine hydroCHLORO 2021-09- No 25mg 25 mg, Uni vers thiazide 0-11 10-11 Oral, ity of (ESIDRIX) 19:00: 20:35 DAILY, [place] tablet 25 00 :31 First dose Medi joyce mg (after Branch last modificati on) on [facility] 06/21/22 at 1400, Until Discontinu ed, Routine Sliding 2021-09 Yes Subcutaneo Univ ers Scale 0-11 us, TID ity of Insulin - 17:00: MEALS+HS, [place] Lispro 00 First dose Medical (HumaLOG) + on [facility] 06/21/22 Testing at 1200, Until Discontinu ed, Routine Sliding 2021-09 No Subcutaneo Uni vers Scale 0-11 10-15 us, TID ity of Insulin - 17:00: 21:09 MEALS+HS, [place] Lispro 00 :41 First dose Medical (HumaLOG) + on [facility] 06/21/22 Testing at 1200, Until Discontinu ed, Routine sulfur 2021-09 No [id number] 5mL 5 mL, Unive rs hexafluorid 0-11 10-11 Intravenou i ty of e microsphr 17:00: 17:00 s, ONCE, 1 [place] (LUMASON) 00 :00 dose, On Medica l injection 5 [facility] mL 06/21/22 at 1200, Routine
count team member approving Restricted medication : WILTON NICHOLAS enalapril 2021-09 Yes 20mg 20 mg, Univer s (VASOTEC) 0-11 Oral, BID, ity of tablet 20 16:00: First dose [place] mg 00 on [facility] 06/21/22 Branch at 1100, Until Discontinu ed, Routine enalapril 2021-09 No 20mg 20 mg, Unive rs (VASOTEC) 0-11 10-15 Oral, BID, ity of tablet 20 16:00: 21:09 First dose [place] mg 00 :41 on [facility] 06/21/22 Branch at 1100, Until Discontinu ed, Routine dextrose 2021-09 Yes 250mL 250 mL, IV Un teo 10% (D10W) 0-11 Infusion, ity of bolus 15:42: PRN - SEE [place] infusion 37 INSTRUCTIO Medic al 250 mL NS, Branch Administer over 60 Minutes, Other, If blood glucose is < or = 70 mg/dL and patient is unable to swallow or has mental status changes, Starting on [facility] [place] 06/21/22 at 1042
If blood glucose is < [...] blood glucose is < 80 mg/dL, repeat.
dextrose 2021-09 No 250mL 250 mL, IV U nivers 10% (D10W) 0-11 10-15 Infusion, ity of bolus 15:42: 21:09 PRN - SEE [place] infusion 37 :41 INSTRUCTIO Medic al 250 mL NS, Branch [...] KIT) 34 Starting Medical injection 1 on [facility] 06/21/22 at 1042, Until Discontinu ed, YOKO, Blood Glucose < or = 70 mg/dL and patient is unable to swallow or has mental changes. glucagon 2021-09- No 1mg 1 mg, Univers (GLUCAGEN 0-11 10-15 Intramuscu ity of DIAGNOSTIC 15:42: 21:09 [place], PRN, [place] KIT) 34 :41 Starting Medical injection 1 on [facility] 06/21/22 at 1042, Until 06/25/22 at 1609, YOKO, Blood Glucose < or = 70 mg/dL and patient is unable to swallow or has mental changes. acetaminoph 2021-09 Yes 650mg 650 mg, Un [place] en 0-11 Oral, ity of (TYLENOL) 15:21: Q6HPRN, [place] tablet 650 10 Starting Medic al mg on [facility] 06/21/22 at 1021, Until Discontinu ed, Routine, Pain (scale 1-3) acetaminoph 2021-09- No 650mg 650 mg, U nivers en 0-11 10-15 Oral, ity of (TYLENOL) 15:21: 21:09 Q6[place]PRN[place] 650 10 :41 Starting Medic al mg on [facility] 06/21/22 at 1021, Until 06/25/22 at 1609, Routine, Pain (scale 1-3) melatonin 2021-09- No 3mg 3 mg, Univer s (MELATIN) 006-21 Oral, ity of tablet 3 mg 09:15: 08:30 [place] 00 [place] dose, On Medical [facility] 06/21/22 at 0415, Routine aspirin 2021-09- No 325mg 325 mg, Unive rs E.C. 006-21 Oral, ity of (ECOTRIN) 08:30: 08:30 [place]CE[place] 325 [place] :00 dose, On Medic al mg [facility] 06/21/22 at 0330, STAT atenoloL 2021-09- No 100mg 100 mg, Univ ers (TENORMIN) 06-21 Oral, ity of tablet 100 03:00: 02:13 ONCE, 1 [place] mg 00 :00 dose, On [facility] 06/20/22 at 2200, Routine cloNIDine 2021-09- No .2mg 0.2 mg, Univ ers (CATAPRES) 006-21 Oral, ity of tablet 0.2 02:15: 02:14 ONCE, 1 [place] mg 00 :00 dose, On [facility] 06/20/22 at 2115, STAT iopamidol 2021-09- No [id number] 150mL 150 mL, Univers (ISOVUE 0-10 10-10 Intravenou ity o f 370-500 mL) 21:15: 21:15 s, ONCE, 1 [place] injection 00 :00 dose, On Medica l 150 mL [facility] 06/20/22 at 1615, Routine acetaminoph 2021-09- No 1000mg 1,000 mg, Univers en 0-10 10-10 Oral, ity of (TYLENOL) 21:00: 20:46 [place]CE, [place] :[place] dose, On Medical 1,000 mg [facility] 06/20/22 at 1600, YOKO piperacilli 2021-09- No [...] as 1,000 mL 00 :00 IV Medical Piggyjesusita, Emil ONCE, 1 dose, On 06/20/22 at 1430, STAT tamsulosin 2021- No .4mg Take 0.4 [place] 0.4 mg 24 9-19 10-15 mg by ity of hr capsule 00:00: 00:00 [place] 00 :00 the Medical morning. Branch tamsulosin 2021- No .4mg Take 0.4 Un te[place] 0.4 mg 24 9-19 10-15 mg by ity of hr capsule 00:00: [place]:00 [place] :[place] the Medical morning. Branch clopidogreL 2021-2021- No TAKE 1 Uni vers 75 mg 9-02 10-15 TABLET BY ity of tablet 00:00: 00:00 [place]TH [place] 00 :[place] DAILY Medical PATIENT Branch NEEDS TO CALL OFFICE TO MAKE AN APPOINTMEN T clopidogreL 2021- No TAKE 1 Uni vers [...] (3 mL) 00 skin. Medical injection Branch Insulin Yes 15U inject 15 Unive rs Glargine 7-19 Units ity of 100 unit/mL 00:00: under the [place] (3 mL) 00 skin. Medical injection Branch Insulin 0 Yes 15U inject 15 Unive rs Glargine 7-19 Units ity of 100 unit/mL 00:00: under [place] (3 mL) 00 skin. Medical injection Branch insulin Yes 15U QD [facility] (LANTUS 00:00: subcutaneo Medi joyce SOLOSTAR 00 usly Center U-100 nightly. INSULIN) 100 unit/mL (3 mL) InPn insulin Yes 15U QD Inject 15 [facility] glargine 7-[facility] (LANTUS 00:00: subcutaneo [facility] joyce SOLOSTAR 00 usly Center U-100 nightly. INSULIN) 100 unit/mL (3 mL) In insulin Yes 15U QD Inject 15 [facility] glargine 7-[facility] (LANTUS 00:00: subcutaneo [facility] joyce SOLOSTAR 00 usly Center U-100 nightly. INSULIN) 100 unit/mL (3 mL) In memantine 2020- No 5mg Q.5D Take 1 [facility] (NAMENDA) 5 7- tablet (5 Corina kes MG tablet 00:00: 23:59 mg total) Me dical 00 :00 by mouth 2 Center (two) times daily. memantine 2020- No 5mg Q.5D Take 1 [facility] (NAMENDA) 5 7-19 tablet (5 [facility]ina kes MG tablet 00:00: 23:59 mg total) Me dical 00 :00 by mouth 2 Center (two) times daily. [facility] Yes 10mg QD Take [address] mg tablet 7-09 by mouth [facility] 00:00: daily. [address] Yes 10mg QD Take [address] mg tablet 7-09 by mouth [facility] 00:00: daily. [address] Yes 10mg QD Take [address] mg tablet 7-09 by mouth [facility] 00:00: daily. [address] simvastatin 2020-0 Yes 20mg QD Take [address] [facility] (ZOCOR) 20 5-13 by mouth [facility] MG tablet 00:00: nightly. [address] tamsulosin 2020-0 Yes .4mg Take 0.[address] [facility] (FLOMAX) 5-13 mg by [facility] 0.4 mg Cap 00:00: mouth Medica l 24 hr 00 Daily Center capsule (1800). simvastatin 2020-0 Yes 20mg QD Take [address] [facility] [facility] (ZOCOR) 20 5-13 by mouth [facility] MG tablet 00:00: nightly. [address] tamsulosin 2020-0 Yes .4mg Take 0.[address] [facility] (FLOMAX) 5-13 mg by [facility] 0.4 mg Cap 00:00: mouth Medica l 24 hr 00 Daily Center capsule (1800). simvastatin 2020-0 Yes 20mg QD Take [address] (ZOCOR) 20 5-13 by mouth [facility] MG tablet 00:00: nightly. [address] tamsulosin 2020-0 Yes .4mg Take 0.[address] (FLOMAX) 5-13 mg by [facility] 0.4 mg Cap 00:00: mouth Medica l 24 hr 00 Daily Center capsule (1800). omeprazole 2020-0 Yes 20mg QD Take [address] (PRILOSEC) 5-04 by mouth [facility] 20 MG 00:00: daily. [address] omeprazole 2020-0 Yes 20mg QD Take [address] (PRILOSEC) 5-04 by mouth [facility] 20 MG 00:00: daily. [address] omeprazole 2020-0 Yes 20mg QD Take [address] (PRILOSEC) 5-04 by mouth [facility] 20 MG 00:00: daily. [address] fLUoxetine 2019-0 Yes 20mg QD Take [address] (PROZAC) 20 8-23 by mouth Luke [facility] MG capsule 00:00: daily. [address] melatonin 3 2019-0 Yes 3mg QD Take [address] mg Tab 8-23 by mouth [facility] tablet 00:00: nightly. [address] fLUoxetine 2019-0 Yes 20mg QD Take [address] (PROZAC) 20 8-23 by mouth Luke [facility] MG capsule 00:00: daily. Medic al [address] [place] [address] melatonin 3 Yes 3mg QD Take [address] mg Tab 8-23 by mouth [facility] tablet 00:00: nightly. [address] fLUoxetine Yes 20mg QD Take [address] (PROZAC) 20 8-23 by mouth Luke s MG capsule 00:00: daily. Medic al 00 [place] melatonin 3 Yes 3mg QD Take [address] mg Tab 8-23 by mouth [facility] tablet 00:00: nightly. [address] PEPCID 20 Yes prn Univers MG ORAL TAB 6-11 ity of 04:52: [address] B COMPLEX 1 Yes None Univer s ORAL TAB 6-11 Entered ity of 04:52: [address] M-VIT ORAL Yes None Univers 6-11 Entered ity of 04:52: [address] 20 Yes prn Univers MG ORAL TAB 6-11 ity of 04:52: [address] B COMPLEX 1 Yes None Univer s ORAL TAB 6-11 Entered ity of 04:52: [address] M-VIT ORAL Yes None Univers 6-11 Entered ity of 04:52: [address] 20 Yes prn Univers MG ORAL TAB 6-11 ity of 04:52: [address] COMPLEX 1 Yes None Univer s ORAL TAB 6-11 Entered ity of 04:52: [address] M-VIT ORAL Yes None Univers 6-11 Entered ity of 04:52: [address] 20 Yes prn Univers MG ORAL TAB 6-11 ity of 04:52: [address] B COMPLEX 1 Yes None Univer s ORAL TAB 6-11 Entered ity of 04:52: [address] M-VIT ORAL Yes None Univers 6-11 Entered ity of 04:52: [address] 20 Yes prn Univers MG ORAL TAB 6-10 ity of 23:52: [address] B COMPLEX 1 Yes None Univer s ORAL TAB 6-10 Entered ity of 23:52: [address] M-VIT ORAL 2017- Yes None Univers 6-10 Entered ity of 23:52: [address] PEPCID 20 Yes prn Univers MG ORAL TAB 6-10 ity of 23:52: [address] B COMPLEX 1 Yes None Univer s ORAL TAB 6-10 Entered ity of 23:52: [address] M-VIT ORAL Yes None Univers 6-10 Entered ity of 23:52: [address] lisinopriL 2014-09 Yes 40mg Take [address] (PRINIVIL,Z 2-21 by mouth [facility] ESTRIL) 40 00:00: Daily Medica l MG tablet 00 (1800). [place] lisinopriL 2014-09 Yes 40mg Take [address] (PRINIVIL,Z 2-21 by mouth Luke s ESTRIL) 40 00:00: Daily Medica l MG tablet 00 (1800). [place] lisinopriL 2014-09 Yes 40mg Take [address] (PRINIVIL,Z 2-21 by mouth Luke s ESTRIL) 40 00:00: Daily Medica l MG tablet 00 (1800). [place] PROTONIX 40 Yes [id number] 1 tab PO Univers MG ORAL 4-01 daily ity of TBEC 00:00: [address] PROTONIX 40 Yes [id number] 1 tab PO Univers MG ORAL 4-01 daily ity of TBEC 00:00: [address] PROTONIX 40 Yes [id number] 1 tab PO Univers MG ORAL 4-01 daily ity of TBEC 00:00: [address] PROTONIX 40 Yes [id number] 1 tab PO Univers MG ORAL 4-01 daily ity of TBEC 00:00: [address] PROTONIX 40 Yes [id number] 1 tab PO Univers MG ORAL 4-01 daily ity of TBEC 00:00: [address] PROTONIX 40 Yes [id number] 1 tab PO Univers MG ORAL 4-01 daily ity of TBEC 00:00: [address] PROTONIX 40 2022- No [id number] 1 tab PO Univers MG ORAL 4-01 10-15 daily ity of TBEC 00:00: 00:00 [place] 00 :00 Medical Branch PROTONIX 40 2008-0 2022- No [id number] 1 tab PO Univers MG ORAL 4-01 10-15 daily ity of TBEC 00:00: 00:00 [place] 00 :00 Medical Branch ENALAPRIL 2009-0 Yes [id number] 1 tab po Univers MALEATE 20 1-15 BID ity of MG ORAL TAB 00:00: [place] 00 Medical Branch ENALAPRIL 2009-0 Yes [id number] 1 tab po Univers MALEATE 20 1-15 BID ity of MG ORAL TAB 00:00: [place] 00 Medical Branch ENALAPRIL 2009-0 Yes [id number] 1 tab po Univers MALEATE 20 1-15 BID ity of MG ORAL TAB 00:00: [place] 00 Medical Branch ENALAPRIL 2009-0 Yes [id number] 1 tab po Univers MALEATE 20 1-15 BID ity of MG ORAL TAB 00:00: [place] 00 Medical Branch ENALAPRIL 2009-0 Yes [id number] 1 tab po Univers MALEATE 20 1-15 BID ity of MG ORAL TAB 00:00: [place] 00 Medical Branch ENALAPRIL 2009-0 Yes [id number] 1 tab po Univers MALEATE 20 1-15 BID ity of MG ORAL TAB 00:00: [place] 00 Medical Branch ENALAPRIL 2009-0 2022- No [id number] 1 tab po Univers MALEATE 20 1-15 10-15 BID ity of MG ORAL TAB 00:00: 00:00 [place] 00 :00 Medical Branch ENALAPRIL 2009-0 2022- No [id number] 1 tab po Univers MALEATE 20 1-15 10-15 BID ity of MG ORAL TAB 00:00: 00:00 [place] 00 :00 Medical Branch HYDROCHLORO 2008-1 Yes [id number] take 1 po Univers THIAZIDE 25 0-30 daily ity of MG ORAL TAB 00:00: [place] 00 Medical Branch HYDROCHLORO 2008- Yes [id number] take 1 po Univers THIAZIDE 25 0-30 daily ity of MG ORAL TAB 00:00: [place] 00 Medical Branch HYDROCHLORO 2008- Yes [id number] take 1 po Univers THIAZIDE 25 0-30 daily ity of MG ORAL TAB 00:00: [place] 00 Medical Branch HYDROCHLORO 2008- Yes [id number] take 1 po Univers THIAZIDE 25 0-30 daily ity of MG ORAL TAB 00:00: [place] 00 Medical Branch HYDROCHLORO 2008-1 Yes [id number] take 1 po Univers THIAZIDE 25 0-30 daily ity of MG ORAL TAB 00:00: Medical Branch HYDROCHLORO 2007-09 Yes [id number] take 1 po Univers THIAZIDE 25 0-30 daily ity of MG ORAL TAB 00:00: Medical Branch HYDROCHLORO 2007-09- No [id number] take 1 po Univers THIAZIDE 25 0-30 10-15 daily ity of MG ORAL TAB 00:00: 00:00 [place] 00 :00 Medical Branch HYDROCHLORO 2007-09- No [id number] take 1 po Univers THIAZIDE 25 0-30 10-15 daily ity of MG ORAL TAB 00:00: 00:00 [place] 00 :00 Medical Branch GLIPIZIDE 5 Yes tske 2 tab Univers MG ORAL TAB 9-09 qam and 1 ity of 00:00: tab qpm [place] [facility] GLIPIZIDE 5 Yes tske 2 tab Univers MG ORAL TAB 9-09 qam and 1 ity of 00:00: tab qpm [place] [facility] GLIPIZIDE 5 Yes tske 2 tab Univers MG ORAL TAB 9-09 qam and 1 ity of 00:00: tab qpm [place] [facility] GLIPIZIDE 5 Yes tske 2 tab Univers MG ORAL TAB 9-09 qam and 1 ity of 00:00: tab qpm Medical Branch GLIPIZIDE 5 Yes tske 2 tab Univers MG ORAL TAB 9-09 qam and 1 ity of 00:00: tab qpm Medical Branch GLIPIZIDE 5 Yes tske 2 tab Univers MG ORAL TAB 9-09 qam and 1 ity of 00:00: tab qpm [place] [facility] GLIPIZIDE 5 2021- No tske 2 tab Univers MG ORAL TAB 9-09 10-15 qam and 1 it y of 00:00: 00:00 tab qpm [place] 00 :00 Medical Branch GLIPIZIDE 5 2021- No tske 2 tab Univers MG ORAL TAB 9-09 10-15 qam and 1 it y of 00:00: 00:00 tab qpm [place] 00 :00 Medical Branch ATENOLOL Yes [id number] one tab po Univers 100 MG ORAL 8-27 daily ity of TAB 00:00: [place] [facility] NORCO Yes 1 tab po Univers 7.5-325 MG 8-27 TID ity of ORAL TAB 00:00: [place] [facility] AMITRIPTYLI Yes 2 tabs QHS Univers NE 50 MG 8-27 ity of ORAL TAB 00:00: [place] [facility] METFORMIN Yes [id number] 1 tab PO Univers 850 MG ORAL 8-27 TID ity of TAB 00:00: [place] [facility] CLONIDINE Yes [id number] take 1 po Univers 0.2 MG ORAL 8-27 qid for 1 ity of TAB 00:00: week, then [place] 00 tid for 1 Medical week, then Branch bid and prn thereafter PRAVASTATIN Yes [id number] take 1 po Univers 40 MG ORAL 8-27 qhs ity of TAB 00:00: Medical Branch ATENOLOL Yes [id number] one tab po Univers 100 MG ORAL 8-27 daily ity of TAB 00:00: [place] [facility] NORCO Yes 1 tab po Univers 7.5-325 MG 8-27 TID ity of ORAL TAB 00:00: Medical Branch AMITRIPTYLI Yes 2 tabs QHS Univers NE 50 MG 8-27 ity of ORAL TAB 00:00: [place] [facility] METFORMIN Yes [id number] 1 tab PO Univers 850 MG ORAL 8-27 TID ity of TAB 00:00: Medical Branch CLONIDINE Yes [id number] take 1 po Univers 0.2 MG ORAL 8-27 qid for 1 ity of TAB 00:00: week, then [place] 00 tid for 1 Medical week, then Branch bid and prn thereafter PRAVASTATIN Yes [id number] take 1 po Univers 40 MG ORAL 8-27 qhs ity of TAB 00:00: Medical Branch ATENOLOL Yes [id number] one tab po Univers 100 MG ORAL 8-27 daily ity of TAB 00:00: [place] [facility] NORCO Yes 1 tab po Univers 7.5-325 MG 8-27 TID ity of ORAL TAB 00:00: [place] [facility] AMITRIPTYLI Yes 2 tabs QHS Univers NE 50 MG 8-27 ity of ORAL TAB 00:00: [place] 00 Medical Branch METFORMIN Yes [id number] 1 tab PO Univers 850 MG ORAL 8-27 TID ity of TAB 00:00: [place] [facility] CLONIDINE Yes [id number] take 1 po Univers 0.2 MG ORAL 8-27 qid for 1 ity of TAB 00:00: week, then [place] 00 tid for 1 Medical week, then Branch bid and prn thereafter PRAVASTATIN Yes [id number] take 1 po Univers 40 MG ORAL 8-27 qhs ity of TAB 00:00: [place] [facility] ATENOLOL Yes [id number] one tab po Univers 100 MG ORAL 8-27 daily ity of TAB 00:00: [place] [facility] NORCO Yes 1 tab po Univers 7.5-325 MG 8-27 TID ity of ORAL TAB 00:00: [place] [facility] AMITRIPTYLI Yes 2 tabs QHS Univers NE 50 MG 8-27 ity of ORAL TAB 00:00: [place] [facility] METFORMIN Yes [id number] 1 tab PO Univers 850 MG ORAL 8-27 TID ity of TAB 00:00: [place] [facility] CLONIDINE Yes [id number] take 1 po Univers 0.2 MG ORAL 8-27 qid for 1 ity of TAB 00:00: week, then [place] 00 tid for 1 Medical week, then Branch bid and prn thereafter PRAVASTATIN Yes [id number] take 1 po Univers 40 MG ORAL 8-27 qhs ity of TAB 00:00: [place] [facility] ATENOLOL Yes [id number] one tab po Univers 100 MG ORAL 8-27 daily ity of TAB 00:00: [place] 00 Medical Branch NORCO Yes 1 tab po Univers 7.5-325 MG 8-27 TID ity of ORAL TAB 00:00: [place] [facility] AMITRIPTYLI Yes 2 tabs QHS Univers NE 50 MG 8-27 ity of ORAL TAB 00:00: [place] [facility] METFORMIN Yes [id number] 1 tab PO Univers 850 MG ORAL 8-27 TID ity of TAB 00:00: [place] [facility] CLONIDINE Yes [id number] take 1 po Univers 0.2 MG ORAL 8-27 qid for 1 ity of TAB 00:00: week, then [place] 00 tid for 1 Medical week, then Branch bid and prn thereafter PRAVASTATIN Yes [id number] take 1 po Univers 40 MG ORAL 8-27 qhs ity of TAB 00:00: [place] 00 Medical Branch ATENOLOL Yes [id number] one tab po Univers 100 MG ORAL 8-27 daily ity of TAB 00:00: [place] 00 Medical Branch NORCO Yes 1 tab po Univers 7.5-325 MG 8-27 TID ity of ORAL TAB 00:00: [place] 00 Medical Branch AMITRIPTYLI Yes 2 tabs QHS Univers NE 50 MG 8-27 ity of ORAL TAB 00:00: [place] 00 Medical Branch METFORMIN Yes [id number] 1 tab PO Univers 850 MG ORAL 8-27 TID ity of TAB 00:00: [place] 00 Medical Branch CLONIDINE Yes [id number] take 1 po Univers 0.2 MG ORAL 8-27 qid for 1 ity of TAB 00:00: week, then [place] 00 tid for 1 Medical week, then Branch bid and prn thereafter PRAVASTATIN Yes [id number] take 1 po Univers 40 MG ORAL 8-27 qhs ity of TAB 00:00: [place] 00 Medical Branch ATENOLOL 2007-2021- No [id number] one tab po Univers 100 MG ORAL 8-27 10-15 daily ity of TAB 00:00: 00:00 [place] 00 :00 Medical Branch NORCO 2007- 202- No 1 tab po Univers 7.5-325 MG 8-27 10-15 TID ity of ORAL TAB 00:00: 00:00 [place] 00 :00 Medical Branch AMITRIPTYLI 2007-2021- No 2 tabs QHS Univers NE 50 MG 8-27 10-15 ity of ORAL TAB 00:00: 00:00 [place] 00 :00 Medical Branch METFORMIN 2007-2021- No [id number] 1 tab PO Univers 850 MG ORAL 8-27 10-15 TID ity of TAB 00:00: 00:00 [place] 00 :00 Medical Branch CLONIDINE 2007-2- No [id number] take 1 po Univers 0.2 MG ORAL 8-27 10-15 qid for 1 it y of TAB 00:00: 00:00 week, then [place] 00 :00 tid for 1 Medical week, then Branch bid and prn thereafter PRAVASTATIN 2021- No [id number] take 1 po Univers 40 MG ORAL 8-27 10-15 qhs ity of TAB 00:00: 00:00 [place] 00 :00 Medical Branch ATENOLOL 2021- No [id number] one tab po Univers 100 MG ORAL 8-27 10-15 daily ity of TAB 00:00: 00:00 [place] 00 :00 Medical Branch NORCO 2021- No 1 tab po Univers 7.5-325 MG 8-27 10-15 TID ity of ORAL TAB 00:00: 00:00 [place] 00 :00 Medical Branch AMITRIPTYLI 2021- No 2 tabs QHS Univers NE 50 MG 8-27 10-15 ity of ORAL TAB 00:00: 00:00 [place] 00 :00 Medical Branch METFORMIN 2- No [id number] 1 tab PO Univers 850 MG ORAL 8-27 10-15 TID ity of TAB 00:00: 00:00 [place] 00 :00 Medical Branch CLONIDINE 2021- No [id number] take 1 po Univers 0.2 MG ORAL 8-27 10-15 qid for 1 it y of TAB 00:00: 00:00 week, then [place] 00 :00 tid for 1 Medical week, then Branch bid and prn thereafter PRAVASTATIN 2021- No [id number] take 1 po Univers 40 MG ORAL 8-27 10-15 qhs ity of TAB 00:00: 00:00 [place] 00 :00 Medical Branch CLONIDINE Yes [id number] 1 tab tid Univers 0.3 MG ORAL 4-30 and prn ity o f TAB 00:00: [place] 00 Medical Branch CLONIDINE Yes [id number] 1 tab tid Univers 0.3 MG ORAL 4-30 and prn ity o f TAB 00:00: [place] 00 Medical Branch CLONIDINE Yes [id number] 1 tab tid Univers 0.3 MG ORAL 4-30 and prn ity o f TAB 00:00: [place] 00 Medical Branch CLONIDINE Yes [id number] 1 tab tid Univers 0.3 MG ORAL 4-30 and prn ity o f TAB 00:00: [place] 00 Medical Branch CLONIDINE Yes [id number] 1 tab tid Univers 0.3 MG ORAL 4-30 and prn ity o f TAB 00:00: Medical Branch CLONIDINE 2007- Yes [id number] 1 tab tid Univers 0.3 MG ORAL 4-30 and prn ity o f TAB 00:00: Medical Branch CLONIDINE 2007-2021- No [id number] 1 tab tid Univers 0.3 MG ORAL 4-30 10-15 and prn ity of TAB 00:00: 00:00 [place] 00 :00 Medical Branch CLONIDINE 2007-2021- No [id number] 1 tab tid Univers 0.3 MG ORAL 4-30 10-15 and prn ity of TAB 00:00: 00:00 [place] 00 :00 Medical Branch ASPIRIN 325 2006-09 Yes [id number] 1 tab U nivers MG ORAL TAB 0-04 daily ity of 00:00: [place] [facility] ASPIRIN 325 2006-09 Yes [id number] 1 tab U nivers MG ORAL TAB 0-04 daily ity of 00:00: [place] [facility] ASPIRIN 325 2006-09 Yes [id number] 1 tab U nivers MG ORAL TAB 0-04 daily ity of 00:00: [place] [facility] ASPIRIN 325 2006- Yes [id number] 1 tab U nivers MG ORAL TAB 0-04 daily ity of 00:00: [place] [facility] ASPIRIN 325 2006- Yes [id number] 1 tab U nivers MG ORAL TAB 0-04 daily ity of 00:00: [place] [facility] ASPIRIN 325 2006- Yes [id number] 1 tab U nivers MG ORAL TAB 0-04 daily ity of 00:00: [place] [facility] ASPIRIN 325 2006-2021- No [id number] 1 tab Univers MG ORAL TAB 0-04 10-15 daily ity of 00:00: 00:00 [place] 00 :00 Medical Branch ASPIRIN 325 2006-2021- No [id number] 1 tab Univers MG ORAL TAB 0-04 10-15 daily ity of 00:00: 00:00 [place] 00 :00 Medical Branch Immunizations Ordered Filled Immunization Date Status Comments [facility] Immunization Name Name Influenza Virus 2007-06-20 Completed Universit y of Vaccine 00:00:00 [facility] Influenza Virus 2007-06-20 Completed Universit y of Vaccine 00:00:00 [facility] Influenza Virus 2007-06-20 Completed Universit y of Vaccine 00:00:00 [facility] Influenza Virus 2007-06-20 Completed Universit y of Vaccine 00:00:00 [facility] Influenza Virus 2007-06-20 Completed Universit y of Vaccine 00:00:00 [facility] Influenza Virus 2007-06-20 Completed Universit y of Vaccine 00:00:00 [facility] Influenza Virus 2007-06-20 Completed Universit y of Vaccine 00:00:00 [facility] Influenza Virus 2007-06-20 Completed Universit y of Vaccine 00:00:00 [facility] Influenza Virus 2007-06-20 Completed Universit y of Vaccine 00:00:00 [facility] Influenza Virus 2006-07-26 Completed Universit y of Vaccine 00:00:00 [facility] Influenza Virus 2006-07-26 Completed Universit y of Vaccine 00:00:00 [facility] Influenza Virus 2006-07-26 Completed Universit y of Vaccine 00:00:00 [facility] Influenza Virus 2006-07-26 Completed Universit y of Vaccine 00:00:00 [facility] Influenza Virus 2006-07-26 Completed Universit y of Vaccine 00:00:00 [facility] Influenza Virus 2006-07-26 Completed Universit y of Vaccine 00:00:00 [facility] Influenza Virus 2006-07-26 Completed Universit y of Vaccine 00:00:00 [facility] Influenza Virus 2006-07-26 Completed Universit y of Vaccine 00:00:00 [facility] Influenza Virus 2006-07-26 Completed Universit y of Vaccine 00:00:00 [facility] Vital Signs Vital Name Observation Time Observation Value Comments Source WEIGHT 2020-03-24 76.658 kg 00:00:00 Systolic blood 2022-06-25 150 mm[Hg] University of pressure 16:28:00 [facility] Diastolic blood 2022-06-25 92 mm[Hg] University o f pressure 16:28:00 [facility] Heart rate 2022-06-25 102 /min University 16:28:00 [facility] Body temperature 2022-06-25 36.5 Sindhu [facility] 16:28:00 [facility] Respiratory rate 2022-06-25 20 /min University 16:28:00 [facility] Oxygen saturation 2022-06-25 91 /min University of in Arterial blood 16:28:00 [place] Medi joyce by Pulse oximetry [place] Body weight 2022-06-21 71.215 kg University of 15:: [facility] BMI 2022-06-21 26.13 kg/m2 University of 15:26:00 [facility] Body height 2022-06-20 165.1 cm University of 18:31:00 [facility] Systolic blood 2022-06-24 184 mm[Hg] University of pressure 12:28:00 beena/goodwi [place] [facility] n team at Branch bedside Diastolic blood 2022-06-24 105 mm[Hg] [place] o f pressure 12:28:00 beena/goodmo [place] [facility]ica l n team at [place] bedside Heart rate 2022-06-24 79 /min University of 12:28:00 [facility] Body temperature 2022-06-24 36.5 Sindhu University of 12:28:00 [facility] Respiratory rate 2022-06-24 20 /min University of 12:28:00 [facility] Oxygen saturation 2022-06-24 95 /min University of in Arterial blood 12:28:[address] [facility] joyce by Pulse oximetry [place] Body weight 2022-06-21 71.215 kg University of 15::00 [facility] BMI 2022-06-21 26.13 kg/m2 University of 15:26:00 [facility] Body height 2022-06-20 165.1 cm University of 18:31:00 [facility] Systolic blood 2021-05-11 156 mm[Hg] University of pressure 01:25:00 [facility] Diastolic blood 2021-05-11 77 mm[Hg] University o f pressure 01:25:00 [facility] Heart rate 2021-05-11 65 /min University of 01:25:00 [facility] Body temperature 2021-05-11 36.94 Sindhu University of :25:00 [facility] Respiratory rate 2021-05-11 18 /min University of :25:00 [facility] Oxygen saturation 2021-05-11 96 /min University of in Arterial blood 01:25:00 [place] Medi joyce by Pulse oximetry [place] Body weight 2021-05-10 68.04 kg University of 12:50:00 [facility] WEIGHT 2020-03-24 76.658 kg 00:00:00 Procedures Procedure Date / Time Performing Clinician Source Performed POCT GLUCOSE (AUTOMATED) 2022-06-25 [facility] ersity of 17:11:00 [facility] POCT GLUCOSE (AUTOMATED) 2022-06-25 [facility] ersity of 17:11:00 [facility] POCT GLUCOSE (AUTOMATED) 2022-06-25 [facility] ersity of 14:07:00 [facility] POCT GLUCOSE (AUTOMATED) 2022-06-25 [facility] ersity of 14:07:00 [facility] MAGNESIUM 2022-06-25 [facility] 10:22:00 [facility] BASIC METABOLIC PANEL (NA, K, 2022-06-25 Gita [place] Un [facility] of CL, CO2, GLUCOSE, BUN, 10:22:00 [place] [facility] CREATININE, CA) Branch CBC WITHOUT DIFF 2022-06-25 tnlilli [facility] of 10:22:00 [facility] MAGNESIUM 2022-06-25 [facility] of 10:22:00 [facility] BASIC METABOLIC PANEL (NA, K, 2022-06-25 Gita [place] Un iversity of CL, CO2, GLUCOSE, BUN, 10:22:00 [place] [facility] CREATININE, CA) Branch CBC WITHOUT DIFF 2022-06-25 [facility] 10:22:00 [facility] POCT GLUCOSE (AUTOMATED) 2022-06-25 [facility] ersity of 01:29:00 [facility] POCT GLUCOSE (AUTOMATED) 2022-06-25 [facility] ersity of 01:29:00 [facility] POCT GLUCOSE (AUTOMATED) 2022-06-24 [facility] ersity of 22:20:00 [facility] POCT GLUCOSE (AUTOMATED) 2022-06-24 [facility] ersity of 22:20:00 [facility] POCT GLUCOSE (AUTOMATED) 2022-06-24 [facility] ersity of 18:06:00 [facility] POCT GLUCOSE (AUTOMATED) 2022-06-24 [facility] ersity of 18:06:00 [facility] CBC WITHOUT DIFF 2022-06-24 [facility]ina [facility] of 17:27:00 [facility] CBC WITHOUT DIFF 2022-06-24 Verenicetnlilli [facility] of 17:27:00 [facility] MAGNESIUM 2022-06-24 [facility] of 17:26:00 [facility] BASIC METABOLIC PANEL (NA, K, 2022-06-24 Gita [place] Un iversity of CL, CO2, GLUCOSE, BUN, 17:26:00 [place] [facility] CREATININE, CA) Branch MAGNESIUM 2022-06-24 [facility] 17:26:00 [facility] BASIC METABOLIC PANEL (NA, K, 2022-06-24 [facility] [place] Un iversity of CL, CO2, GLUCOSE, BUN, 17:26:00 [place] [facility] CREATININE, CA) Branch ELECTROPHYSIOLOGY PROCEDURE 2022-06-24 [facility] ersity of 13:36:26 [facility]ED[facility] 2022-06-24 [facility] ersity of 13:36:26 [facility] POCT GLUCOSE (AUTOMATED) 2022-06-24 [facility] ersity of 13:01:00 [facility] POCT GLUCOSE (AUTOMATED) 2022-06-24 [facility] ersity of 13:01:00 [facility] POCT GLUCOSE (AUTOMATED) 2022-06-24 Ca Meléndez Uni versity of 03:58:00 [facility] POCT GLUCOSE (AUTOMATED) 2022-06-24 Ca Meléndez Uni versity of 03:58:00 [facility] URINALYSIS 2022-06-23 [facility] 22:59:00 [facility] URINALYSIS 2022-06-23 [facility] 22:59:00 [facility] POCT GLUCOSE (AUTOMATED) 2022-06-23 Ca Meléndez Uni versity of 22:38:00 [facility] POCT GLUCOSE (AUTOMATED) 2022-06-23 Low, Ca [place] Uni versity of 22:38:00 [facility] POCT GLUCOSE (AUTOMATED) 2022-06-23 Low, [place] Uni versity of 17:07:00 [facility] POCT GLUCOSE (AUTOMATED) 2022-06-23 Low, [place] Uni versity of 17:07:00 [facility] POCT GLUCOSE (AUTOMATED) 2022-06-23 Low, [place] Uni versity of 12:31:00 [facility] POCT GLUCOSE (AUTOMATED) 2022-06-23 Low, Ca [place] Uni versity of 12:31:00 [facility] MAGNESIUM 2022-06-23 [facility] of 09:22:00 [facility] BASIC METABOLIC PANEL (NA, K, 2022-06-23 Marlys Pelayoah Un iversity of CL, CO2, GLUCOSE, BUN, 09:22:00 [place] [facility] CREATININE, CA) Branch CBC WITHOUT DIFF 2022-06-23 [facility] 09:22:00 [facility] MAGNESIUM 2022-06-23 [facility] of 09:22:00 [facility] BASIC METABOLIC PANEL (NA, K, 2022-06-23 Marlys Pelayoah Un iversity of CL, CO2, GLUCOSE, BUN, 09:22:00 [place] [facility] CREATININE, CA) Branch CBC WITHOUT DIFF 2022-06-23 tnlilli [facility] 09:22:00 [facility] HB ECG ROUTINE & RHYTHM STRIP 2022-06-23 Fawad Muñoz Jackson of 04:21:59 [facility] HB ECG ROUTINE & RHYTHM STRIP 2022-06-23 [facility] of 04:21:59 [facility] POCT GLUCOSE (AUTOMATED) 2022-06-23 [place], [place] Uni versity of 02:30:00 [facility] POCT GLUCOSE (AUTOMATED) 2022-06-23 Low, Ca [place] Uni versity of 02:30:00 [facility] PHOSPHORUS 2022-06-22 [facility] of 22:43:00 [facility] PHOSPHORUS 2022-06-22 Safder, [facility] of 22:43:00 [facility] METANEPHRINES, PLASMA 2022-06-22 [facility] of 22:42:00 [facility] POCT GLUCOSE (AUTOMATED) 2022-06-22 Low, [place] Uni versity of 21:59:00 [facility] POCT GLUCOSE (AUTOMATED) 2022-06-22 Low, [place] Uni versity of 21:59:00 [facility] POCT GLUCOSE (AUTOMATED) 2022-06-22 Low, [place] Uni versity of 16:52:00 [facility] POCT GLUCOSE (AUTOMATED) 2022-06-22 Low, [place] Uni versity of 16:52:00 [facility] POCT GLUCOSE (AUTOMATED) 2022-06-22 Low, [place] Uni versity of 13:13:00 [facility] POCT GLUCOSE (AUTOMATED) 2022-06-22 Low, Ca [place] Uni versity of 13:13:00 [facility] MAGNESIUM 2022-06-22 Patriica [facility] of 10:07:00 [facility] FERRITIN SERUM 2022-06-22 [facility] of 10:07:00 [facility] VITAMIN B12, LEVEL 2022-06-22 [facility] of 10:07:00 [facility] BASIC METABOLIC PANEL (NA, K, 2022-06-22 Bin Gomez Un iversity of CL, CO2, GLUCOSE, BUN, 10:07:00 [place] [facility] CREATININE, CA) [place] IRON PANEL 2022-06-22 Patricia [facility] of 10:07:00 [facility] CBC WITH DIFF 2022-06-22 Patricia [facility] of 10:07:00 [facility] MAGNESIUM 2022-06-22 [facility] of 10:07:00 [facility] FERRITIN SERUM 2022-06-22 Patricia [facility] of 10:07:00 [facility] VITAMIN B12, LEVEL 2022-06-22 [facility] of 10:07:00 [facility] BASIC METABOLIC PANEL (NA, K, 2022-06-22 [facility] Unit[facility] mistry Un iversity of CL, CO2, GLUCOSE, BUN, 10:07:00 [place] [facility] CREATININE, [place] Branch IRON PANEL 2022-06-22 [facility] of 10:07:00 [facility] CBC WITH DIFF 2022-06-22 [facility] of 10:07:00 [facility] POCT GLUCOSE (AUTOMATED) 2022-06-22 [place] Ca WoflJuana Uni versity of 00:54:00 [facility] POCT GLUCOSE (AUTOMATED) 2022-06-22 Ca Meléndez Uni versity of 00:54:00 [facility] POCT GLUCOSE (AUTOMATED) 2022-06-21 Srinath Cohen Univers ity of 21:48:00 [facility] POCT GLUCOSE (AUTOMATED) 2022-06-21 Srinath Cohen Univers ity of 21:48:00 [facility] HB ECG ROUTINE & RHYTHM STRIP 2022-06-21 Bin Gomez Un iversity of 19:13:25 [facility] HB ECG ROUTINE & RHYTHM STRIP 2022-06-21 Bin Gomez Un iversity of 19:13:25 [facility] TRANSTHORACIC ECHO (TTE) 2022-06-21 Bin Gomez [facility] ity of COMPLETE W/ CONTRAST 16:58:45 [facility] TRANSTHORACIC ECHO (TTE) 2022-06-21 Bin Gomez [facility] ity of COMPLETE W/ CONTRAST 16:58:45 [facility] POCT GLUCOSE (AUTOMATED) 2022-06-21 Srinath Cohen Univers ity of 16:35:00 [facility] POCT GLUCOSE (AUTOMATED) 2022-06-21 Srinath Cohen Univers ity of 16:35:00 [facility] THYROID STIMULATING HORMONE 2022-06-21 [facility] of 12:08:00 [facility] COMP. METABOLIC PANEL ([id number]) 2022-06-21 Anastasiya Tapia [facility] of 12:08:00 [facility] CBC WITH DIFF 2022-06-21 Anastasiya Tapia [facility] of 12:08:00 [facility] GLYCOSYLATED HEMOGLOBIN (A1C) 2022-06-21 Bin Gomez iversity of 12:08:00 [facility] THYROID STIMULATING HORMONE 2022-06-[address] [facility] ersity of 12:08:00 [facility] COMP. METABOLIC PANEL ([id number]) 2022-06-21 Anastasiya Tapia [facility] of 12:08:00 [facility] CBC WITH DIFF 2022-06-21 Anastasiya Tapia [facility] of 12:08:00 [facility] GLYCOSYLATED HEMOGLOBIN (A1C) 2022-06-21 Bin Gomez iversity of 12:08:00 [facility] COVID-19 (ID NOW RAPID 2022-06-21 Anastasiya Tapia [facility] sity of TESTING) 07:07:00 [facility] LAB ONLY COVID INTERPRETATION 2022-06-21 Anastasiya Tapia [facility] of 07:07:00 [facility] COVID-19 (ID NOW RAPID 2022-06-21 Anastasiya Tapia [facility] sity of TESTING) 07:07:00 [facility] LAB ONLY COVID INTERPRETATION 2022-06-21 Anastasiya Tapia [facility] of 07:07:00 [facility] LACTIC ACID WHOLE BLOOD 2022-06-21 Srinath Cohen [facility] ty of 04:05:00 [facility] LACTIC ACID WHOLE BLOOD 2022-06-21 Singer [facility] ty of 04:05:00 [facility] CT HEAD WO CONTRAST 2022-06-21 Singer Srinath Jackson o f 00:42:20 [facility] CT HEAD WO CONTRAST 2022-06-21 Singer [facility] o f 00:42:20 [facility] ELECTROENCEPHALOGRAM 2022-06-21 Bin Gomez [facility] of 00:00:00 [facility] ELECTROENCEPHALOGRAM 2022-06-21 [facility] of 00:00:00 [facility] LACTIC ACID WHOLE BLOOD 2022-06-20 Singer Srinath [facility] ty of 23:59:00 [facility] LACTIC ACID WHOLE BLOOD 2022-06-20 Singer [facility] ty of 23:59:00 [facility] CT ANGIOGRAM ABDOMEN/PELVIS 2022-06-20 Srinath Cohen [facility] ersity of 20:21:56 [facility] CT ANGIOGRAM ABDOMEN/PELVIS 2022-06-20 Singer [facility] ersity of 20:21:56 [facility] URINALYSIS 2022-06-20 Singer Srinath Jackson of 19:04:00 [facility] URINE CULTURE 2022-06-20 Singer [facility] of 19:04:00 [facility] URINALYSIS 2022-06-20 Singer [facility] of 19:04:00 [facility] URINE CULTURE 2022-06-20 Singer [facility] of 19:04:00 [facility] XR CHEST 1 VW 2022-06-20 [facility] 18:50:20 [facility] XR CHEST 1 VW 2022-06-20 Singer [facility] of 18:50:20 [facility] BLOOD CULTURE SCREEN 2022-06-20 Singer [facility] of 18:46:00 [facility] BLOOD CULTURE SCREEN 2022-06-20 Singer [facility] of 18:46:00 [facility] BLOOD CULTURE SCREEN 2022-06-20 Singer [facility] of 18:39:00 [facility] TROPONIN I 2022-06-20 Singer [facility] of 18:39:00 [facility] COMP. METABOLIC PANEL ([id number]) 2022-06-20 Srinath Cohen Un iversity of 18:39:00 [facility] CBC WITH DIFF 2022-06-20 Singer [facility] of 18:39:00 [facility] BLOOD CULTURE SCREEN 2022-06-20 Singer [facility] of 18:39:00 [facility] TROPONIN I 2022-06-20 Singer [facility] of 18:39:00 [facility] COMP. METABOLIC PANEL ([id number]) 2022-06-20 Srinath Cohen iversity of 18:39:00 [facility] CBC WITH DIFF 2022-06-20 Singer [facility] of 18:39:00 [facility] EKG-12 LEAD 2022-06-20 Singer [facility] of 18:38:36 [facility] EKG-12 LEAD 2022-06-20 Singer [facility] of 18:38:36 [facility] LACTIC ACID WHOLE BLOOD 2022-06-20 [facility] 18:38:00 [facility] LACTIC ACID WHOLE BLOOD 2022-06-20 [facility] 18:38:00 [facility] EMERGENCY DEPARTMENT 2022-06-20 Doctor Unassigned, Universi ty of DOCUMENTS 05:01:00 [place] [facility] HOSPITAL ADMISSION 2022-06-20 Doctor UnassignedDavid of 05:01:00 [place] [facility] ASSIGNMENT OF BENEFITS 2021-05-07 Doctor Unassigned, Josette sandoval of 21:31:03 [place] [facility] Plan of Care Planned Activity Planned Date Details Comments Source Future Scheduled 2022-05-12 INFLUENZA VACCINE (#1) [facility] 00:00:00 [code = INFLUENZA Medical Ce nter VACCINE (#1)] Future Scheduled 2021-09-[address] [facility] 00:00:00 (12+) [code = Medical Center DEPRESSION SCREENING (12+)] Future Scheduled 2021-09-11 FALLS RISK SCREENING [facility] 00:00:00 [code = FALLS RISK Medical C enter SCREENING] Future Scheduled 2021-05-12 INFLUENZA VACCINE (#1) [facility] 00:00:00 [code = INFLUENZA Medical Ce nter VACCINE (#1)] Future Scheduled 2021-05-12 INFLUENZA VACCINE (#1) [facility] 00:00:00 [code = INFLUENZA Medical Ce nter VACCINE (#1)] Future Scheduled 2020-09-[address] 00:00:00 [facility] (procedure) [code = 17808226] Future Scheduled 2020-09-[address] [facility] 00:00:00 [facility] (procedure) [code = 69096926] Future Scheduled 2020-09-[address] [facility] 00:00:00 [facility] (procedure) [code = 03196879] Future Scheduled 2020-09-[address] [...] 00:00:00 (1 of 1 - Medical Center [id number] PCV13) [code = PNEUMOCOCCAL 65+ YRS (1 of 1 - [id number] PCV13)] Future Scheduled 2002 PNEUMOCOCCAL 65+ YRS [facility] 00:00:00 (1 of 1 - Medical Center [id number] PCV13) [code = PNEUMOCOCCAL 65+ YRS (1 of 1 - [id number] PCV13)] Future Scheduled 1999-11-11 MEDICARE ANNUAL [facility] [...] 00:00:00 protein (procedure) Medical Center [code = 430567789] Future Scheduled [address]AB[address]IC EYE EXAM [facility] 00:00:00 [code = DIABETIC EYE Medical Center EXAM] Future Scheduled 1947 Urine screening for [facility] 00:00:00 protein (procedure) Medical Center [code = 727631973] Future Scheduled [address] DIABETIC EYE EXAM [facility] 00:00:00 [code = DIABETIC EYE Medical Center EXAM] Future Scheduled 1947 Urine screening for [facility] Test 00:00:00 protein (procedure) Medical Center [code = 226236112] Future Scheduled 1943 PNEUMOCOCCAL 65+ YRS [facility] Test 00:00:00 (1 - PCV) [code = Medical Ce nter PNEUMOCOCCAL 65+ YRS (1 - PCV)] Future Scheduled 1937 COVID-19 VACCINE (#1) [facility] 00:00:00 [code = COVID-[address] VACCINE (#1)] Future Scheduled 1937 DXA SCAN [code = DXA [facility] Test 00:00:00 SCAN] Medical Center Encounters Start End Encounter Admission Attending Care Care Encounter Source Date/Time Date/Time Type Type Clinicians Facility Department ID 2020-03-24 [facility] [id number] [facility] 23:52:00 [facility] 2022-06-27 2022-06-27 Transition ROSE Macias [id number] Univers 00:00:00 00:00:00 of Care Jamil Reeder JOAO [id number] [place]y [id number] [phone] [facility] [address] 2022-06-20 2022-06-25 Inpatient X ALVERTO [facility] [id number] Univers 13:17:00 13:00:00 ACACIA ity of [facility] 2022-06-20 2022-06-25 [facility] Srinath Cohen [id number] Univers 13:17:00 13:00:00 Encounter Acacia Del Toro Saima DOS SANTOS [id number]. 10 ity of [facility] [id number] [place] [id number] [facility] [address] 2022-06-24 2022-06-24 Surgery VIKTORIA Adams [id number] Univers 08:35:00 09:20:00 Maria Elena DOS SANTOS [id number] ity of [facility] 4.2.7.2.686 Shawn as [phone] [facility] [address] 2021-05-10 2021-05-10 Nurse Therapy, Kevin Byrd [facility] [id number]. [id number] Univers 19:27:33 20:27:33 Visit Unknown, Attending Health [id number] ity of [place] 4.2.7.2.686 Shawn as Terrell?Blea [phone] [address] Medical Office Building 2021-05-10 2021-05-10 Outpatient R UNKNOWN, [facility] [id number] Univers 19:30:00 19:30:00 ATTENDING ity of [facility] 2021-05-09 2021-05-09 Telephone TRENT Tariq [id number] Univers 00:00:00 00:00:00 Gesmina DOS SANTOS [id number] ity of [facility] [id number] Shawn as [id number] Medi [address] 2021-05-07 2021-05-07 Laboratory Only, Ang Db Test [facility] [id number] Univers 17:11:44 17:31:44 Only GreenJud [facility] [id number] ity of [place] 4.2.7.2.686 Shawn as Terrell?Blea [id number] [address] Medical Office Building 2021-05-07 2021-05-07 [facility] [id number] Univers 17:15:00 17:15:00 [facility] 2021-05-07 2021-05-07 [facility] [id number] Univers 16:20:00 16:20:00 [facility] 2021-05-07 2021-05-07 Orders Doctor TRENT [id number] Univers 00:00:00 00:00:00 Only Unassigned, RAYA [id number] ity of [place] [facility] [id number] Shawn as [phone] [address] Results Test Description Test Time Test Comments Results Result Comments Source METANEPHRINES, PLASMA 2022-06-27 20:47:27 Test Item Value Reference Range Interpretation Comme nts METANEPH (test code = <0.10 0.00-0.49 39030-0) NORMETNEPH (test code = 0.83 nmol/L 0.00-0.89 11686-0) METAPF INT (test code = See Note INTE RPRETIVE INFORMATION: 75561-1) Metanephrines, Plasma (Free) This test is useful in the detection of pheochromocy norman, a rare neuroendocrine tumor. The majority of pat ients with pheochromocytom a have a plasma normetanephrine concentration in excess of 2.2 n mol/L and/or a metanephrine co ncentration in excess of 1.1 n mol/L. Increased concentrations of these analytes serve as confir mation for diagnosis. Amy ents with essential hyper tension and plasma concentrations of normetanephrine below 0.9 nmol/ L and a metanephrine co ncentration below 0.5 nmol/L, can be excluded from further testing . If clinical suspicion remai ns, repeat testing or testing for metanephrines in a 24-hr. urine sp ecimen should be considered. Thi s test was developed and i ts performance characteristics determined by [employer]. It has not been cleared or approved by the [place] Food and Champ g Administration. This test was p erformed in a CLIA certified labor atory and is intended for cl inical purposes.Perfor med By: [employer] [place] [id number] Director: Juan Espinosa MD, PhD [facility] GLUCOSE (AUTOMATED)2022-06-25 17:12:53 Test Item Value Reference Range Interpretation Comments POCT GLU (test code = 1741501316) 200 mg/dL 70-110 H Lab Interpretation (test code = Abnormal 63966-1) [facility] GLUCOSE (AUTOMATED)2022-06-25 17:12:53 Test Item Value Reference Range Interpretation Comments POCT GLU (test code = 1052362314) 200 mg/dL 70-110 H Lab Interpretation (test code = Abnormal 52104-1) [facility] GLUCOSE (AUTOMATED)2022-06-25 14:20:12 Test Item Value Reference Range Interpretation Comments POCT GLU (test code = 3566881476) 171 mg/dL 70-110 H Lab Interpretation (test code = Abnormal 45287-1) [facility] GLUCOSE (AUTOMATED)2022-06-25 14:20:12 Test Item Value Reference Range Interpretation Comments POCT GLU (test code = 7369276293) 171 mg/dL 70-110 H Lab Interpretation (test code = Abnormal 26799-3) [facility] GLUCOSE (AUTOMATED)2022-06-25 01:30:55 Test Item Value Reference Range Interpretation Comments POCT GLU (test code = 9645712281) 207 mg/dL 70-110 H Lab Interpretation (test code = Abnormal 31211-2) [facility] GLUCOSE (AUTOMATED)2022-06-25 01:30:55 Test Item Value Reference Range Interpretation Comments POCT GLU (test code = 5491439027) 207 mg/dL 70-110 H Lab Interpretation (test code = Abnormal 89118-8) [facility] GLUCOSE (AUTOMATED)2022-06-24 22:26:40 Test Item Value Reference Range Interpretation Comments POCT GLU (test code = 6821552338) 195 mg/dL 70-110 H Lab Interpretation (test code = Abnormal 56547-2) [facility] GLUCOSE (AUTOMATED)2022-06-24 22:26:40 Test Item Value Reference Range Interpretation Comments POCT GLU (test code = 3147023524) 195 mg/dL 70-110 H Lab Interpretation (test code = Abnormal 88455-3) [facility] GLUCOSE (AUTOMATED)2022-06-24 18:07:03 Test Item Value Reference Range Interpretation Comments POCT GLU (test code = 0478340042) 376 mg/dL 70-110 H Lab Interpretation (test code = Abnormal 36734-0) [facility] GLUCOSE (AUTOMATED)2022-06-24 18:07:03 Test Item Value Reference Range Interpretation Comments POCT GLU (test code = 2706962260) 376 mg/dL 70-110 H Lab Interpretation (test code = Abnormal 92946-8) [facility] 17:45:35 Test Item Value Reference Range Interpretation Comments MAGNESIUM (test code = 6795287328) 1.9 mg/dL 1.7-2.4 Lab Interpretation (test code = Normal 86880-1) [facility] METABOLIC PANEL (NA, K, CL, CO2, GLUCOSE, BUN, CREATININE, CA)2022-06-24 17:45:35 Test Item Value Reference Range Interpretation Comments NA (test code = 137 mmol/L 135-145 3638113051) K (test code = 3.3 mmol/L 3.5-5 L 3644740824) CL (test code = 101 mmol/L 98-108 1433736956) CO2 TOTAL (test code = 25 mmol/L 23-31 3619650014) AGAP (test code = 2-16 8822360082) BUN (test code = 17 mg/dL 7-23 5189891614) GLUCOSE (test code = 264 mg/dL 70-110 H 6422088970) CREATININE (test code = 0.94 mg/dL 0.5-1.04 6808546698) CALCIUM (test code = 9.1 mg/dL 8.6-10.6 6749729690) eGFR (test code = mL/min/1.73m2 1116225419) WINDY (test code = WINDY) Association of [...] tests). Lab Interpretation Abnormal (test code = 49755-1) [facility] 17:45:35 Test Item Value Reference Range Interpretation Comments MAGNESIUM (test code = 9148220961) 1.9 mg/dL 1.7-2.4 Lab Interpretation (test code = Normal 48557-0) [facility] (NA, K, CL, CO2, GLUCOSE, BUN, CREATININE, CA)2022-06-24 17:45:35 Test Item Value Reference Range Interpretation Comments NA (test code = 137 mmol/L 135-145 0385571752) K (test code = 3.3 mmol/L 3.5-5 L 5177310356) CL (test code = 101 mmol/L 98-108 7639387413) CO2 TOTAL (test code = 25 mmol/L 23-31 0498528125) AGAP (test code = 2-16 0437031341) BUN (test code = 17 mg/dL 7-23 8290518999) GLUCOSE (test code = 264 mg/dL 70-110 H 1918864266) CREATININE (test code = 0.94 mg/dL 0.5-1.04 8832670120) CALCIUM (test code = 9.1 mg/dL 8.6-10.6 2981096322) eGFR (test code = mL/min/1.73m2 2702265550) WINDY (test code = WINDY) Association of [...] tests). Lab Interpretation Abnormal (test code = 21252-0) [facility] WITHOUT [id number] 17:37:52 Test Item Value Reference Range Interpretation Comments WBC (test code = 6690-2) See_Comment [A utomated message] The system [facility] generated this result transmit timur reference range : 4.30 - 11.10 10*3/?L. The reference range was not used to interpret this result as normal/abnormal . RBC (test code = 789-8) See_Comment [Au tomated message] The system [facility] generated this result transmit timur reference [...] PLT (test code = 777-3) See_Comment [Au tomated message] The system [facility] generated this result transmit timur reference range : 166 - 358 10*3/?L. The reference range was not used to interpret this result as normal/abnormal . MPV (test code = 9.0 fL 9.5-12.9 L 91840-9) RDW-CV (test code = 16.6 % 12-15.5 H 788-0) RDW-SD (test code = 44.0 fL 39-49.9 56699-5) NRBC x10^3 (test code = See_Comment [Au tomated message] 2649601754) The system [facility] generated this result transmit timur reference range : 10*3/?L. The reference range was not used to interpret this result as normal/abnormal . NRBC/100 WBC (test code See_Comment [Au tomated message] = 9521270790) The system [facility] generated this result transmit timur reference range : 0.0 - 10.0 /100 WBC s. The reference r fernando was not used to interpret this result as normal/abnormal . IPF % (test code = 9854781291) Lab Interpretation (test Abnormal code = 74839-0) [facility] WITHOUT [id number] 17:37:52 Test Item Value Reference Range Interpretation Comments WBC (test code = 6690-2) See_Comment [A utomated message] The system [employer] generated this result transmit timur reference range : 4.30 - 11.10 10*3/?L. The reference range was not used to interpret this result as normal/abnormal . RBC (test code = 789-8) See_Comment [Au tomated message] The system [employer] generated this result transmit timur reference range [...] PLT (test code = 777-3) See_Comment [Au tomated message] The system [employer] generated this result transmit timur reference range : 166 - 358 10*3/?L. The reference range was not used to interpret this result as normal/abnormal . MPV (test code = 9.0 fL 9.5-12.9 L 68299-1) RDW-CV (test code = 16.6 % 12-15.5 H 788-0) RDW-SD (test code = 44.0 fL 39-49.9 85379-7) NRBC x10^3 (test code = See_Comment [Au tomated message] 1648866188) The system [employer] generated this result transmit timur reference range : 10*3/?L. The reference range was not used to interpret this result as normal/abnormal . NRBC/100 WBC (test code See_Comment [Au tomated message] = 9924160983) The system [facility] generated this result transmit timur reference range : 0.0 - 10.0 /100 WBC s. The reference r fernando was not used to interpret this result as normal/abnormal . IPF % (test code = 6934508800) Lab Interpretation (test Abnormal code = 33830-0) [facility] GLUCOSE (AUTOMATED)2022-06-24 13:05:03 Test Item Value Reference Range Interpretation Comments POCT GLU (test code = 6265369447) 175 mg/dL 70-110 H Lab Interpretation (test code = Abnormal 02082-9) [facility] GLUCOSE (AUTOMATED)2022-06-24 13:05:03 Test Item Value Reference Range Interpretation Comments POCT GLU (test code = 5271606542) 175 mg/dL 70-110 H Lab Interpretation (test code = Abnormal 69668-3) [facility] GLUCOSE (AUTOMATED)2022-06-24 03:59:23 Test Item Value Reference Range Interpretation Comments POCT GLU (test code = 1764547576) 200 mg/dL 70-110 H Lab Interpretation (test code = Abnormal 08418-6) [facility] GLUCOSE (AUTOMATED)2022-06-24 03:59:23 Test Item Value Reference Range Interpretation Comments POCT GLU (test code = 6925605896) 200 mg/dL 70-110 H Lab Interpretation (test code = Abnormal 94536-0) [facility] GLUCOSE (AUTOMATED)2022-06-23 22:39:44 Test Item Value Reference Range Interpretation Comments POCT GLU (test code = 7193414820) 210 mg/dL 70-110 H Lab Interpretation (test code = Abnormal 65568-1) [facility] GLUCOSE (AUTOMATED)2022-06-23 22:39:44 Test Item Value Reference Range Interpretation Comments POCT GLU (test code = 1340880374) 210 mg/dL 70-110 H Lab Interpretation (test code = Abnormal 88482-2) [facility] GLUCOSE (AUTOMATED)2022-06-23 17:10:04 Test Item Value Reference Range Interpretation Comments POCT GLU (test code = 3258625638) 189 mg/dL 70-110 H Lab Interpretation (test code = Abnormal 94846-5) [facility] GLUCOSE (AUTOMATED)2022-06-23 17:10:04 Test Item Value Reference Range Interpretation Comments POCT GLU (test code = 2951705854) 189 mg/dL 70-110 H Lab Interpretation (test code = Abnormal 88933-7) [facility] GLUCOSE (AUTOMATED)2022-06-23 12:33:02 Test Item Value Reference Range Interpretation Comments POCT GLU (test code = 4654624385) 193 mg/dL 70-110 H Lab Interpretation (test code = Abnormal 51886-4) [facility] GLUCOSE (AUTOMATED)2022-06-23 12:33:02 Test Item Value Reference Range Interpretation Comments POCT GLU (test code = 4720612903) 193 mg/dL 70-110 H Lab Interpretation (test code = Abnormal 22104-5) [facility] GLUCOSE (AUTOMATED)2022-06-23 02:42:00 Test Item Value Reference Range Interpretation Comments POCT GLU (test code = 3301422629) 166 mg/dL 70-110 H Lab Interpretation (test code = Abnormal 68759-0) [facility] GLUCOSE (AUTOMATED)2022-06-23 02:42:00 Test Item Value Reference Range Interpretation Comments POCT GLU (test code = 3739758591) 166 mg/dL 70-110 H Lab Interpretation (test code = Abnormal 77557-1) [facility] [id number] 23:14:43 Test Item Value Reference Range Interpretation Comments PHOSPHORUS (test code = 3.1 mg/dL 2.5-5 Slig ht hemolysis 3097314269) Lab Interpretation (test Normal code = 04314-2) [facility] [id number] 23:14:43 Test Item Value Reference Range Interpretation Comments PHOSPHORUS (test code = 3.1 mg/dL 2.5-5 Slig ht hemolysis 2717622308) Lab Interpretation (test Normal code = 58112-7) [facility] GLUCOSE (AUTOMATED)2022-06-22 22:01:14 Test Item Value Reference Range Interpretation Comments POCT GLU (test code = 5678806598) 216 mg/dL 70-110 H Lab Interpretation (test code = Abnormal 55137-7) [facility] GLUCOSE (AUTOMATED)2022-06-22 22:01:14 Test Item Value Reference Range Interpretation Comments POCT GLU (test code = 6974631203) 216 mg/dL 70-110 H Lab Interpretation (test code = Abnormal 15675-1) [facility] GLUCOSE (AUTOMATED)2022-06-22 16:56:03 Test Item Value Reference Range Interpretation Comments POCT GLU (test code = 3522600032) 170 mg/dL 70-110 H Lab Interpretation (test code = Abnormal 96380-1) [facility] GLUCOSE (AUTOMATED)2022-06-22 16:56:03 Test Item Value Reference Range Interpretation Comments POCT GLU (test code = 0584952409) 170 mg/dL 70-110 H Lab Interpretation (test code = Abnormal 76706-1) [facility] GLUCOSE (AUTOMATED)2022-06-22 13:15:17 Test Item Value Reference Range Interpretation Comments POCT GLU (test code = 4384569305) 186 mg/dL 70-110 H Lab Interpretation (test code = Abnormal 07350-7) [facility] GLUCOSE (AUTOMATED)2022-06-22 13:15:17 Test Item Value Reference Range Interpretation Comments POCT GLU (test code = 9792510390) 186 mg/dL 70-110 H Lab Interpretation (test code = Abnormal 76375-0) [facility] GLUCOSE (AUTOMATED)2022-06-22 00:55:28 Test Item Value Reference Range Interpretation Comments POCT GLU (test code = 5562220208) 201 mg/dL 70-110 H Lab Interpretation (test code = Abnormal 47620-8) [facility] GLUCOSE (AUTOMATED)2022-06-22 00:55:28 Test Item Value Reference Range Interpretation Comments POCT GLU (test code = 9343049596) 201 mg/dL 70-110 H Lab Interpretation (test code = Abnormal 15043-5) [facility]2022-06-21 22:48:56 Test Item Value Reference Range Interpretation Comments Height (test code = in 6438329058) Weight (test code = lbs 1414812674) Systolic BP (test code = mmHg 3910472227) Diastolic BP (test code mmHg = 7377335712) Heart Rate (test code = bpm 1453389181) LVOT stroke volume (test 79.70 cm3 code = 3012739432) EF(Teich) (test code = 56.30 % 1716668805) LVIDD (test code = 4.60 cm 2355367707) LVIDS (test code = 3.30 cm 9205629959) Left Ventricular End 43.5 mL Systolic Volume by Teichholz Method (test code = 6597336) Left Ventricular End 99.6 mL Diastolic Volume by Teichholz Method (test code = 5673030) IVS (test code = 1.19 cm 9039832014) LVPWD (test code = 1.08 cm 0926132170) LVOT diameter (test code 2.05 cm = 9828915885) LVOT area (test code = 3.30 cm2 9528478311) FS (test code = 29 % 6254217390) MV Peak E Tian (test code 84.6 cm/s = 6286367548) MV Peak A Tian (test code 110.3 cm/s = 6833621328) E/A ratio (test code = ratio 8298912478) E wave decelartion time 0.25 s (test code = 2919753221) MV E/e' septal (test 4.0 cm/s code = 0552526761) LA Volume Index (BP) 36.7 mL/m2 (test code = 2448957468) LA volume (BP) (test 65.4 mL code = 5796889241) LVOT peak tian (test code 100.1 cm/s = 5402572649) LVOT mn grad (test code mmHg = 4099713427) BSA (test code = 1.78 m2 5291624148) LA size (test code = 3.4 cm 5557961695) LAV(MOD-sp2) (test code 61.30 mL = 6928758098) LAV(MOD-sp4) (test code 58.90 mL = 0213727021) Tapse (test code = 2.48 cm 2389103724) AV LVOT peak gradient mmHg (test code = 1480447784) LVOT peak VTI (test code 24.2 cm = 1788085457) LV V1 mean (test code = 64.80 cm/s 3429408475) MV Prop V (test code = 31.70 cm/s 6713264594) Ao root diam (test code 3.40 cm = 9210920764) Aortic root (test code = 3.4 cm 6780591789) Ao root annulus (test 3.4 cm code = 1286401041) PW (test code = 1.08 cm 0.6-1.8 8131437135) EF - 2D (test code = 56.30 % 83750290) Interventricular Septum 1.19 cm Diastolic Thickness by 2D (test code = 9512268) Left Ventricular Cardiac 4.8 L/min Output (test code = 3122390) Aortic HR (test code = BPM 3883775502) Aortic valve mean 86.9 cm/s velocity (test code = 1822805347) Ao peak tian (test code = 153.7 cm/s 1482874308) Ao VTI (test code = 33.7 cm 8879603381) AV area by cont VTI 2.4 cm2 (test code = 7536377719) AV area peak tian (test 2.2 cm2 code = 9073020411) Ao max PG (test code = 9.40 mm[Hg] 2429583955) AV peak gradient (test mmHg code = 4602740375) AV valve area (test code 2.37 cm2 = 3012923866) AV mean gradient (test mmHg code = 1040401972) IVC Diam Exp(MM) (test 1.87 cm code = 5161827185) IVC Diam Ins(MM) (test 0.78 cm code = 4920125336) Radiology Study observation (narrative) (test code = 52884-5) WINDY (test code = WINDY) ?Left?Ventricle: Left [...] enhancing agent used. Patient exhibited sinus bradycardia. [facility] 22:48:56 Test Item Value Reference Range Interpretation Comments Height (test code = in 7521886943) Weight (test code = lbs 7608025626) Systolic BP (test code = mmHg 3023173628) Diastolic BP (test code mmHg = 7878467593) Heart Rate (test code = bpm 5639489514) LVOT stroke volume (test 79.70 cm3 code = 1535835215) EF(Teich) (test code = 56.30 % 2321387444) LVIDD (test code = 4.60 cm 4680004752) LVIDS (test code = 3.30 cm 0723980537) Left Ventricular End 43.5 mL Systolic Volume by Teichholz Method (test code = 0756212) Left Ventricular End 99.6 mL Diastolic Volume by Teichholz Method (test code = 1199994) IVS (test code = 1.19 cm 0755820607) LVPWD (test code = 1.08 cm 1299185640) LVOT diameter (test code 2.05 cm = 5618529296) LVOT area (test code = 3.30 cm2 4720243580) FS (test code = 29 % 9650467783) MV Peak E Tian (test code 84.6 cm/s = 8506010846) MV Peak A Tian (test code 110.3 cm/s = 8359209434) E/A ratio (test code = ratio 4600095446) E wave decelartion time 0.25 s (test code = 4360594830) MV E/e' septal (test 4.0 cm/s code = 9558620455) LA Volume Index (BP) 36.7 mL/m2 (test code = 5549838044) LA volume (BP) (test 65.4 mL code = 6562788446) LVOT peak tian (test code 100.1 cm/s = 2392190729) LVOT mn grad (test code mmHg = 1983682679) BSA (test code = 1.78 m2 7258411111) LA size (test code = 3.4 cm 9176835264) LAV(MOD-sp2) (test code 61.30 mL = 2611565008) LAV(MOD-sp4) (test code 58.90 mL = 3287059744) Tapse (test code = 2.48 cm 2165814438) AV LVOT peak gradient mmHg (test code = 0921102840) LVOT peak VTI (test code 24.2 cm = 8621321262) LV V1 mean (test code = 64.80 cm/s 9991764029) MV Prop V (test code = 31.70 cm/s 9414056726) Ao root diam (test code 3.40 cm = 6839492761) Aortic root (test code = 3.4 cm 3633849618) Ao root annulus (test 3.4 cm code = 4582191638) PW (test code = 1.08 cm 0.6-1.4 1454632084) EF - 2D (test code = 56.30 % 62763904) Interventricular Septum 1.19 cm Diastolic Thickness by 2D (test code = 4045998) Left Ventricular Cardiac 4.8 L/min Output (test code = 6640495) Aortic HR (test code = BPM 7347779136) Aortic valve mean 86.9 cm/s velocity (test code = 8748053481) Ao peak tian (test code = 153.7 cm/s 9296890196) Ao VTI (test code = 33.7 cm 8045133808) AV area by cont VTI 2.4 cm2 (test code = 5418079989) AV area peak tian (test 2.2 cm2 code = 2470593937) Ao max PG (test code = 9.40 mm[Hg] 2527178442) AV peak gradient (test mmHg code = 4777496749) AV valve area (test code 2.37 cm2 = 4718396140) AV mean gradient (test mmHg code = 5082536421) IVC Diam Exp(MM) (test 1.87 cm code = 1950960098) IVC Diam Ins(MM) (test 0.78 cm code = 0156428025) Radiology Study observation (narrative) (test code = 43693-1) WINDY (test code = WINDY) ?Left?Ventricle: Left [...] enhancing agent used. Patient exhibited sinus bradycardia. [facility] GLUCOSE (AUTOMATED)2022-06-21 21:50:29 Test Item Value Reference Range Interpretation Comments POCT GLU (test code = 1942320384) 181 mg/dL 70-110 H Lab Interpretation (test code = Abnormal 28263-6) [facility] GLUCOSE (AUTOMATED)2022-06-21 21:50:29 Test Item Value Reference Range Interpretation Comments POCT GLU (test code = 0038194330) 181 mg/dL 70-110 H Lab Interpretation (test code = Abnormal 72758-1) [facility] GLUCOSE (AUTOMATED)2022-06-21 20:55:06 Test Item Value Reference Range Interpretation Comments POCT GLU (test code = 7956120542) 159 mg/dL 70-110 H Lab Interpretation (test code = Abnormal 21976-0) [facility] GLUCOSE (AUTOMATED)2022-06-21 20:55:06 Test Item Value Reference Range Interpretation Comments POCT GLU (test code = 9164193975) 159 mg/dL 70-110 H Lab Interpretation (test code = Abnormal 01304-7) [facility]-GLU[facility]SE [id number] 11:32:00 Test Item Value Reference Range Interpretation Comments POC-GLUCOSE METER 235 mg/dL 70-110 H : TESTED A T [facility] 6720 (BEAKER) (test code = [facility], 1538) 90005: Braid Folder/Techni chika ID = [id number] for QUEEN LASSITER POCT-GLUCOSE [id number] 07:37:00 Test Item Value Reference Range Interpretation Comments POC-GLUCOSE METER 190 mg/dL 70-110 H : TESTED A T [facility] 67[address] (BEAKER) (test code = [facility] Jordan [facility], 1538) 05881: Braid Folder/Techni chika ID = [id number] for QUEEN LASSITER CBC W/PLT COUNT & AUTO [id number] 06:10:00 Test Item Value Reference Range Interpretation [...] PERCENT (BEAKER) (test code = 2801) POCT-GLUCOSE [id number] 22:16:00 Test Item Value Reference Range Interpretation Comments POC-GLUCOSE METER 275 mg/dL 70-110 H : TESTED A T [facility] 67[address] (BEAKER) (test code = [facility], 1538) 21013: Braid Folder/Techni chika ID = [id number] for YRIS HENAO POCT-GLUCOSE [id number] 16:44:00 Test Item Value Reference Range Interpretation Comments POC-GLUCOSE METER 200 mg/dL 70-110 H : TESTED A T [facility] 67[address] (BEAKER) (test code = [facility], 1538) 39520: Braid Folder/Techni chika ID = [id number] for QUEEN LASSITER POCT-GLUCOSE [id number] 12:11:00 Test Item Value Reference Range Interpretation Comments POC-GLUCOSE METER 180 mg/dL 70-110 H : TESTED A T [facility] 6720 (BEAKER) (test code = [facility], 1538) 51837: Braid Folder/Techni chika ID = [id number] for SHAYY ALBRIGHT POCT-GLUCOSE [id number] 08:17:00 Test Item Value Reference Range Interpretation Comments POC-GLUCOSE METER 158 mg/dL 70-110 H : TESTED A T [facility] 6720 (BEAKER) (test code = [facility], 1538) 02441: Braid Folder/Techni chika ID = [id number] for NW HAIDERU, SHAYY CBC W/PLT COUNT & AUTO [id number] 04:14:00 Test Item Value Reference Range Interpretation [...] PERCENT (BEAKER) (test code = 2801) POCT-GLUCOSE [id number] 16:12:00 Test Item Value Reference Range Interpretation Comments POC-GLUCOSE METER 233 mg/dL 70-110 H : TESTED A T [facility] 6720 (BEAKER) (test code = [facility], 153) 59323: Braid Folder/Techni chika ID = [id number] for NW AJIAKU, HSAYY POCT-GLUCOSE [id number] 12:02:00 Test Item Value Reference Range Interpretation Comments POC-GLUCOSE METER 190 mg/dL 70-110 H : TESTED A T [facility] 6720 (BEAKER) (test code = [facility], 153) 28767: Braid Folder/Techni chika ID = [id number] for NW AJIAKU, SHAYY STOOL CULTURE + SHIGA [id number] 09:19:00 Test Item Value Reference Range Interpretation Comments CULTURE (BEAKER) No Salmonella, Shigella (test code = 1095) or Campylobacter isolated POCT-GLUCOSE [id number] 07:46:00 Test Item Value Reference Range Interpretation Comments POC-GLUCOSE METER 174 mg/dL 70-110 H : TESTED Lilli T [facility] 6720 (BEAKER) (test code = [facility], 1538) 80888: Braid Folder/Techni chika ID = [id number] for NW SHAYY ALEXANDER CBC W/PLT COUNT & AUTO [id number] 06:53:00 Test Item Value Reference Range Interpretation [...] 0-1 PERCENT (BEAKER) (test code = 2801) [id number] 06:20:00 Test Item Value Reference Range Interpretation Comments MAGNESIUM (BEAKER) 1.7 mg/dL 1.6-2.6 Specimen slightly (test code = 627) hemolyzed Braid Folder ID - LATA WBASIC METABOLIC [id number] 06:20:00 Test Item Value Reference Range Interpretation [...] S NOT APPLICABLE FOR DIALYSIS PATIEN TS. Braid Folder ID Suman GUIDO WHEPATIC FUNCTION [id number] 06:20:00 Test Item Value Reference Range Interpretation [...] Specimen slightly (test code = 347) hemolyzed Braid Folder ID - LATA WPOCT-GLUCOSE [id number] 21:46:00 Test Item Value Reference Range Interpretation Comments POC-GLUCOSE METER 181 mg/dL 70-110 H : TESTED A T [facility] 67[address] (BEAKER) (test code = DINA Ortega [facility], 1538) 74357: Braid Folder/Techni chika ID = [id number] for KE BE, UDATU CT, BRAIN, WITHOUT [id number] 18:11:00FINAL REPORT CT, BRAIN, WITHOUT CONTRAST INDICATION: [...] Annmarie Burch Verified Date/Time: 03/26/2020 18:11:57 POCT-GLUCOSE [id number] 17:31:00 Test Item Value Reference Range Interpretation Comments POC-GLUCOSE METER 209 mg/dL 70-110 H : Notified RN/MD: [facility] (test code = TESTED AT [facility] 67[address] 1538) [facility], [address]: Braid Folder/Techni chika ID = [id number] for MEERA LEMOS SHIGA TOXIN [id number] 15:19:00 Test Item Value Reference Range Interpretation Comments SHIGA TOXIN 1 (BEAKER) (test Not detected Not detected code = 2177) SHIGA TOXIN 2 (BEAKER) (test Not detected Not detected code = 2179) POCT-GLUCOSE [id number] 11:53:00 Test Item Value Reference Range Interpretation Comments POC-GLUCOSE METER 159 mg/dL 70-110 H : TESTED A T [facility] 6720 (BEAKER) (test code = [facility], 1538) 45292: Braid Folder/Techni chika ID = [id number] for SANDRA HOLLIS STOOL PATH [id number] 11:36:00 Test Item Value Reference Range Interpretation Comments PATHOGEN EXAM CHARGED (BEAKER) (test Done code = 2381) POCT-GLUCOSE [id number] 07:11:00 Test Item Value Reference Range Interpretation Comments POC-GLUCOSE METER 146 mg/dL 70-110 H : TESTED A T [facility] 6720 ([facility]) (test code = [facility], 1538) 45490: Braid Folder/Techni chika ID = [id number] for MILY GROVE [id number] 06:04:00 Test Item Value Reference Range Interpretation Comments MAGNESIUM (BEAKER) (test code = 1.9 mg/dL 1.6-2.6 627) Braid Folder ID - PIAYA LBASIC METABOLIC [id number] 06:04:00 Test Item Value Reference Range Interpretation [...] S NOT APPLICABLE FOR DIALYSIS PATIEN TS. Braid Folder ID - PIAYA LHEPATIC FUNCTION [id number] 06:04:00 Test Item Value Reference Range Interpretation [...] (test code = 15 U/L 6-55 347) Braid Folder ID - PIAYA LCBC W/PLT COUNT & AUTO [id number] 05:20:00 Test Item Value Reference Range Interpretation [...] PERCENT (BEAKER) (test code = 2801) POCT-GLUCOSE [id number] 21:12:00 Test Item Value Reference Range Interpretation Comments POC-GLUCOSE METER 154 mg/dL 70-110 H : TESTED A T [facility] 6720 (BEAKER) (test code = DINA Ortega [place], 1538) [address]: Braid Folder/Techni chika ID = [id number] for JEREMY GUPTA POCT-GLUCOSE [id number] 17:43:00 Test Item Value Reference Range Interpretation Comments POC-GLUCOSE METER 152 mg/dL 70-110 H : TESTED A T [facility] 6720 (BEAKER) (test code = DINA Ortega [facility], 1538) [address]: Braid Folder/Techni chika ID = [id number] for [place] SARS-COV2/RT-PCR ([facility])2020-03-25 13:40:00 Test Item Value Reference Range Interpretation Comments SARS-COV2/RT-PCR (test code = Negative Not Detected, Negative [id number]) SARS-COV-2 PERFORMING LAB [facility] (test code = 9630331) Negative result for this test determines that [...] of the Act.Fact Sheet for Healthcare Prov iders:https://www.[employer]/sites/default/files/product/documents/Fact_Sheet_HC _Dyeeeqnbz_Jzuq_KWPQ-GjS-7.pdfFact Sheet for Healthcare Patients:https://www.[employer]/sites/default/files/product/docume nts/Sfpq_Mwtei_Ioqedxgj_Tddt_MMZL-KqK-1.pdfPerforming Laboratory:[facility] [facility].[place], [place] [address]QTLF-VTXIBGM METER 2020-03-25 11:24:00 Test Item Value Reference Range Interpretation Comments POC-GLUCOSE METER 165 mg/dL 70-110 H : TESTED A T [facility] 6720 (CALI) (test code = DINA Jordan [facility], 1538) 586[address]: Braid Folder/Techni chika ID = [id number] for SANDRA HOLLIS TSH/FREE T4 IF [id number] 10:59:00 Test Item Value Reference Range Interpretation Comments THYROID STIMULATING HORMONE 0.622 uIU/mL 0.350-4.940 (CALI) (test code = 772) Braid Folder ID Suman EDWARD LHEMOGLOBIN [id number] 10:59:00 Test Item Value Reference Range Interpretation Comments HEMOGLOBIN A1C (CALI) (test code = 6.9 % 4.3-6.1 H 368) TROPONIN [id number] 10:50:00 Test Item Value Reference Range Interpretation Comments TROPONIN I (CALI) (test code = 0.02 ng/mL 0.00-0.03 397) [...] failure, acidosis, acute neurological disease, and persistent tachyarrhythmia.Braid Folder ID - WAGNER LBASIC METABOLIC [id number] 10:42:00 Test Item Value Reference Range Interpretation [...] S NOT APPLICABLE FOR DIALYSIS PATIEN TS. Braid Folder ID - WAGNER LHEPATIC FUNCTION [id number] 10:42:00 Test Item Value Reference Range Interpretation [...] (test code = 10 U/L 6-55 347) Braid Folder ID - WAGNER [id number] 10:41:00 Test Item Value Reference Range Interpretation Comments PHOSPHORUS (BEAKER) (test code = 3.2 mg/dL 2.3-4.7 604) Braid Folder ID - WAGNER [id number] 10:41:00 Test Item Value Reference Range Interpretation Comments MAGNESIUM (BEAKER) (test code = 2.0 mg/dL 1.6-2.6 627) Braid Folder ID - PIAYA LPOCT-GLUCOSE [id number] 09:10:00 Test Item Value Reference Range Interpretation Comments POC-GLUCOSE METER 116 mg/dL 70-110 H : TESTED A T [facility] 6720 (BEAKER) (test code = DINA [place], 1538) 56[address]: Braid Folder/Techni chika ID = [id number] for LANCE TRACEY RAD, CHEST, 1 VIEW, NON [id number] 07:49:00Reason for exam:->chest painShould this be performed at the bedside?->YesFINAL REPORT CLINICAL HISTORY: chest pain TECHNIQUE: 1 view of the chest. COMPAR NIEVES: None IMPRESSION: There are linear bandlike opacities in the bilateral mid and lower lungs. There are no significant effusions. The cardiomediastinal silhouette is magnified by technique. Signed: Keturah Mensah MDReport Verified Date/Time: 03/25/2020 07:49:59 Reading Location: [facility] Radiology Reading Room C. DIFFICILE GDH [id number] 06:54:00 Test Item Value Reference Range Interpretation Comments CDT TOXIN (test code Negative Negative = [id number]) CDT GDH ANTIGEN (test Negative Negative No ind ication of code = [id number]) Clostridi um difficile infection and n o colonization. Discontinue ent perez isolation and t herapy. Testing performed by [employer] Rapid Cassette Assay. For GDH, published sensitivity of the assay is 98.7% compared to cytotoxicity testing. For Toxin AB, published sensitivity is 87.8% and specificity 99.4% compared to cytotoxicity testing.Verification of kit performance was done by the [facility] prior to clinical use.URINALYSIS WITH MICROSCOPIC IF [id number] 06:35:00 Test Item Value Reference Range Interpretation [...] = 463) SOURCE(BEAKER) (test code = 2795) Braid Folder ID - [auto]Braid Folder ID - techURINALYSIS [id number] 06:35:00 Test Item Value Reference Range Interpretation Comments RBC UA (BEAKER) (test code = 519) 3 /HPF WBC UA (BEAKER) (test code = 520) 11 /HPF BACTERIA (BEAKER) (test code = 517) Rare SQUAMOUS EPITHELIAL (BEAKER) (test 1 /HPF code = 516) Braid Folder ID - techPOCT-GLUCOSE [id number] 05:08:00 Test Item Value Reference Range Interpretation Comments POC-GLUCOSE METER 128 mg/dL 70-110 H : TESTED A T [facility] 6720 (BEAKER) (test code = DINA [place], 1538) [address]: Braid Folder/Techni chika ID = [id number] for As Meena beckett"
--- NOTE | 2022-07-06 13:21 | RAD REPORT ---
EXAM DESCRIPTION: RAD - Chest Single View - 07/06/2022 1:10 pm CLINICAL HISTORY: ams, shortness of breath COMPARISON: Portable 06/27/2022, portable 03/24/2020 TECHNIQUE: AP portable chest image was obtained 07/06/2022 1:10 pm . FINDINGS: No peripheral mass or consolidation. Loop recorder overlies the lower left chest. Heart si ze is upper normal. Pulmonary vasculature within normal limits. No significant interstitial edema pat tern seen. No measurable pleural effusion and no pneumothorax. No acute bone findings seen. Prominent degenerat sudeep change at each shoulder joint with bilateral chronic rotator cuff tear. Tortuosity and dilatation of the thoracic aorta is present not substantially different from prior iliana ging. No prior CT imaging to fully define the aortic findings. IMPRESSION: No acute cardiopulmonary process. Thoracic aorta is tortuous and dilated but not clearly different from prior imaging.
[2022-07-06 13:56] LABS: Absolute Lymphocytes (CBC) 1.8 K/uL (0.7-4.9); MCV 75.4 fL (80-100); RBC Red Blood Cell Count 4.64 M/uL (3.86-4.86)
[2022-07-06 13:57] LABS: Anisocytosis 2+; Blood Morphology Comment NOTED (NOT SEEN); Platelet Estimate ADEQ; White Blood Cell Scan OK (OK)
[2022-07-06 14:17] LABS: Urine Blood Negative (Negative); Urine Glucose Negative (Negative); Urine Protein Negative (Negative); Urine Specific Gravity <=1.005 (1.005-1.030); Urine pH 5.5 (5.0-7.0)
--- NOTE | 2022-07-06 14:47 | RAD REPORT ---
EXAM DESCRIPTION: CT - Head Brain Wo Cont - 07/06/2022 2:17 pm CLINICAL HISTORY: Mental status change, unknown cause COMPARISON: Head Brain Wo Cont dated 06/27/2022 TECHNIQUE: Axial 5 mm thick images of the head were obtained without IV contrast. All CT scans are performed using dose optimization technique as appropriate and may include automated exposure control or mA/KV adjustment according to patient size. FINDINGS: No intracranial hemorrhage, mass, edema or shift of mid-line structures. No acute infarcti on changes seen. No cortical edema or sulcal effacement. Moderate severity atrophy and chronic ischem ic changes are present. Small lacune or infarction noted right basal ganglia. The intracranial findin gs are similar to comparison. Ventricles are in proportion to the amount of volume loss. Mastoid air cells and visualized portions of the paranasal sinuses are clear. No acute bony findings. IMPRESSION: No acute intracranial finding identifiable. Prominent atrophy and chronic ischemic pattern similar to the short interval June 27 study.
[2022-07-06 16:15] LABS: Albumin 3.7 g/dL (3.4-5.0); Bilirubin Direct 0.1 mg/dL (0-0.2); Bilirubin Total 0.3 mg/dL (0.2-1.0); Magnesium 1.9 mg/dL (1.8-2.4); Potassium 4.4 mmol/L (3.5-5.1); Protein, Total 7.1 g/dL (6.4-8.2)
--- NOTE | 2022-07-06 16:26 | ER ---
Nurse's Notes [facility] Name: Skylar Grossman Age: 87 yrs Sex: Female : 1935 Arrival Date: 07/06/2022 Time: 12:08 Bed 3 Private MD: Diagnosis: Anemia, unspecified;Fatigue Presentation: 07/06 12:14 Chief complaint: EMS states: "87 year old pt that live with her family. family called [facility] today for the pt being altered or rather more altered today. the family reported she has been in and out of the ER for a while now related to this similar symptoms, but they were unable to remember what the previous diagnosis was last time she was sent to the ER. they figured she was altered because the pt did not ask for help when getting up to go to the restroom. the pt also does seem to be more drowsy, but otherwise wakes right up to verbal stimuli. BGL was 189. stable vitals.". Coronavirus screen: At this time, the client does not indicate any symptoms associated with coronavirus-19. Ebola Screen: No symptoms or risks identified at this time. Initial Sepsis Screen: Does the patient meet any 2 criteria? No. Patient's initial sepsis screen is negative. Does the patient have a suspected source of infection? No. Patient's initial sepsis screen is negative. Risk Assessment: Do you want to hurt yourself or someone else? Patient reports no desire to harm self or others. Onset of symptoms was July 06, 2022. 12:14 Method Of Arrival: EMS: [facility] jd3 12:14 Acuity: FARIDA 2 jd3 Historical: - Allergies: 12:20 Codeine (Upset stomach); jd3 12:20 meperidine HCl; jd3 12:20 Morphine; jd3 - PMHx: 12:20 Dementia; CVA; Depression; Diabetes - IDDM; GERD; High Cholesterol; Hypertension; jd3 - Immunization history:: Adult Immunizations unknown. - Social history:: Smoking status: unknown. Screenin:24 Abuse screen: no signs of abuse noted. Nutritional screening: No deficits noted. jd3 Tuberculosis screening: No symptoms or risk factors identified. Fall Risk Ambulatory Aid- None/Bed Rest/Nurse Assist (0 pts). Gait- Normal/Bed Rest/Wheelchair (0 pts) Mental Status- Oriented to own ability (0 pts). Total N[place]les Fall Scale indicates No Risk (0-24 pts). Assessment: 12:22 General: Appears in no apparent distress. comfortable, Behavior is calm, cooperative, jd3 appropriate for age. Pain: Denies pain. Neuro: Cruz Agitation-Sedation Scale (RASS): -1 Drowsy Level of Consciousness is awake, obeys commands, confused, Oriented to person. Cardiovascular: Heart tones present Capillary refill < 3 seconds Patient's skin is warm and dry. Rhythm is regular. Respiratory: Airway is patent Respiratory effort is even, unlabored, Respiratory pattern is regular, symmetrical, Breath sounds are clear bilaterally. Denies cough, shortness of breath. GI: No signs and/or symptoms were reported involving the gastrointestinal system. : No signs and/or symptoms were reported regarding the genitourinary system. EENT: No signs and/or symptoms were reported regarding the EENT system. Derm: Skin is intact, Skin is dry, Skin is pale, Skin temperature is cool. Musculoskeletal: No signs and/or symptoms reported regarding the musculoskeletal system. 13:22 Reassessment: Patient appears in no apparent distress at this time. No changes from jd3 previously documented assessment. Patient and/or family updated on plan of care and expected duration. Pain level reassessed. 14:27 Reassessment: Patient appears in no apparent distress at this time. No changes from jd3 previously documented assessment. Patient and/or family updated on plan of care and expected duration. Pain level reassessed. pt resting in bed with family at bedside. Neuro: Cruz Agitation-Sedation Scale (RASS): -1 Drowsy Level of Consciousness is awake, obeys commands, confused, Oriented to person. 15:41 Reassessment: Patient appears in no apparent distress at this time. No changes from jd3 previously documented assessment. Patient and/or family updated on plan of care and expected duration. Pain level reassessed. Patient denies pain at this time. 16:31 Reassessment: Patient appears in no apparent distress at this time. Patient and/or jd3 family updated on plan of care and expected duration. Pain level reassessed. discharge pending family return to ER Patient states feeling better. Pain: Denies pain. Neuro: Cruz Agitation-Sedation Scale (RASS): 0 - Alert and Calm Level of Consciousness is awake, alert, obeys commands, confused, Oriented to person, place. 17:52 Reassessment: Patient appears in no apparent distress at this time. No changes from jd3 previously documented assessment. Patient and/or family updated on plan of care and expected duration. Pain level reassessed. Vital Signs: 12:20 BP 155 / 76; Pulse 62; Resp 16 S; Temp 97.6(TE); Pulse Ox 100% on R/A; Pain 0/10; jd3 13:00 BP 107 / 86; Pulse 61; Resp 18; Pulse Ox 100% on R/A; jd3 13:22 BP 124 / 89; Pulse 60; Resp 19; Pulse Ox 100% on R/A; jd3 14:28 Pulse 59; Resp 19 S; Pulse Ox 100% on R/A; jd3 15:41 Pulse 66; Resp 19; Pulse Ox 97% on R/A; jd3 16:32 BP 158 / 83; Pulse 60; Resp 19; Pulse Ox 98% on R/A; jd3 17:52 BP 163 / 90; Pulse 61; Resp 19; Pulse Ox 98% on R/A; jd3 [place] Coma Score: 12:24 Eye Response: to voice(3). Verbal Response: confused(4). Motor Response: obeys jd3 commands(6). Total: 13. ED Course: 12:08 Patient arrived in ED. ms3 12:08 Barak Walker DO is Attending Physician. ms3 12:11 Piero Akins, RN is Primary Nurse. jd3 12:20 Triage completed. jd3 12:22 Arm band placed on. jd3 12:25 Patient has correct armband on for positive identification. Placed in gown. Bed in low jd3 position. Call light in reach. Side rails up X2. Client placed on continuous cardiac and pulse oximetry monitoring. NIBP monitoring applied. night monitor on. Pulse ox on. NIBP on. 12:25 Warm blanket given. jd3 12:45 Missed attempt(s): 22 gauge in right antecubital area. Bleeding controlled, band aid jd3 applied, catheter tip intact. 12:47 Missed attempt(s): 22 gauge in left antecubital area. Bleeding controlled, band aid jd3 applied, catheter tip intact. 13:12 XRAY Chest (1 view) In Process Unspecified. EDMS 13:41 Inserted saline lock: 22 gauge in right wrist, using aseptic technique. iw 14:15 Straight cath inserted, using sterile technique, 16 Fr. Specimen obtained. Returned jd3 clear yellow urine. Patient tolerated well. 14:19 CT Head Brain wo Cont In Process Unspecified. EDMS 18:43 No provider procedures requiring assistance completed. IV discontinued, intact, jd3 bleeding controlled, No redness/swelling at site. Pressure dressing applied. Administered Medications: No medications were administered Medication: 12:24 VIS not applicable for this client. jd3 Intake: 14:15 provider notified of output amount jd3 Output: 14:15 Urine: 1000ml (Straight Cath); Total: 1000ml. jd3 14:15 provider notified of output amount jd3 Outcome: 16:25 Discharge ordered by . ms3 18:43 Discharged to home via wheelchair, with family. jd3 18:43 Condition: stable 18:43 Discharge instructions given to family, Instructed on discharge instructions, follow up and referral plans. Demonstrated understanding of instructions, follow-up care. 18:44 Patient left the ED. jd3 Signatures: Dispatcher [employer] EDMS Sheridan Tapia, RN RN iw Piero Akins RN RN jd3 Barak Walker DO DO ms3 Corrections: (The following items were deleted from the chart) 15:46 15:41 Pulse 66bpm; Resp 19bpm; Pulse Ox 97% RA; jd3 jd3
--- NOTE | 2022-07-06 16:27 | EDPHYS ---
Physician Documentation [facility] Name: Skylar Grossman Age: 87 yrs Sex: Female : 1935 Arrival Date: 07/06/2022 Time: 12:08 Bed 3 Private MD: ED Physician Barak Walker HPI: 07/06 14:09 This 87 yrs old Female presents to ER via EMS with complaints of Altered Mental Status. ms3 14:09 The patient presents with confusion. Onset: The symptoms/episode began/occurred and ms3 became worse this morning. Associated signs and symptoms: The patient has no apparent associated signs or symptoms. Current symptoms: In the emergency department the patient's symptoms are unchanged from the initial presentation. 87-year-old female with past medical history of dementia, CVA, depression, diabetes, GERD, hyperlipidemia presents for increased fatigue that became worse this morning. Patient denies pain at this time. Patient denies alleviating or inciting factors. EMS states patient's family noticed patient to be confused when she did not ask for help to go to the bathroom.. Historical: - Allergies: 12:20 Codeine (Upset stomach); jd3 12:20 meperidine HCl; jd3 12:20 Morphine; jd3 - PMHx: 12:20 Dementia; CVA; Depression; Diabetes - IDDM; GERD; High Cholesterol; Hypertension; jd3 - Immunization history:: Adult Immunizations unknown. - Social history:: Smoking status: unknown. ROS: 14:09 Constitutional: Negative for fever, and chills. Neck: Negative for injury, pain, and ms3 swelling, Cardiovascular: Negative for chest pain, and palpitations. Respiratory: Negative for shortness of breath, cough, wheezing, and pleuritic chest pain, Abdomen/GI: Negative for abdominal pain, nausea, vomiting, diarrhea, and constipation, Skin: Negative for injury, rash, and discoloration. 14:09 All other systems are negative. Exam: 12:56 ECG was reviewed by the Attending Physician. ms3 14:09 Constitutional: This is a well developed, well nourished patient who is awake, alert, ms3 and in no acute distress. Head/Face: Normocephalic, atraumatic. Eyes: Pupils equal round and reactive to light, extra-ocular motions intact. Lids and lashes normal. Conjunctiva and sclera are non-icteric and not injected. Periorbital areas with no swelling, redness, or edema. Chest/axilla: Normal chest wall appearance and motion. Nontender with no deformity. Cardiovascular: Regular rate and rhythm with a normal S1 and S2. No gallops, murmurs, or rubs. Normal PMI, no JVD. No pulse deficits. Respiratory: Lungs have equal breath sounds bilaterally, clear to auscultation and percussion. No rales, rhonchi or wheezes noted. No increased work of breathing, no retractions or nasal flaring. Abdomen/GI: Soft, non-tender, with normal bowel sounds. No distension or tympany. No guarding or rebound. No evidence of tenderness throughout. Skin: Warm, dry with normal turgor. Normal color with no rashes, no lesions, and no evidence of cellulitis. MS/ Extremity: Pulses equal, no cyanosis. Neurovascular intact. Full, normal range of motion. 14:09 Neuro: Orientation: to person, place, Motor: is grossly normal based on the patient's age, no acute changes, Sensation: is normal. Vital Signs: 12:20 BP 155 / 76; Pulse 62; Resp 16 S; Temp 97.6(TE); Pulse Ox 100% on R/A; Pain 0/10; jd3 13:00 BP 107 / 86; Pulse 61; Resp 18; Pulse Ox 100% on R/A; jd3 13:22 BP 124 / 89; Pulse 60; Resp 19; Pulse Ox 100% on R/A; jd3 14:28 Pulse 59; Resp 19 S; Pulse Ox 100% on R/A; jd3 15:41 Pulse 66; Resp 19; Pulse Ox 97% on R/A; jd3 16:32 BP 158 / 83; Pulse 60; Resp 19; Pulse Ox 98% on R/A; jd3 17:52 BP 163 / 90; Pulse 61; Resp 19; Pulse Ox 98% on R/A; jd3 [place] Coma Score: 12:24 Eye Response: to voice(3). Verbal Response: confused(4). Motor Response: obeys jd3 commands(6). Total: 13. MDM: 12:08 Patient medically screened. ms3 12:56 Data reviewed: vital signs, nurses notes, lab test result(s), EKG, radiologic studies, ms3 and as a result, I will discharge patient. ED course: Discussed labs, EKG, imaging with patient and her sister. Patient more alert in the emergency department, no apparent distress, nontoxic-appearing. Patient and her sister understand and agree with plan for discharge. Patient to follow-up with her primary care physician in 2 to 3 days. All questions were answered. Return precautions discussed to include worsening symptoms, or any other concerns. 14:09 Differential Diagnosis: electrolyte abnormality, UTI, volume depletion. ms3 07/06 12:14 Order name: Basic Metabolic Panel; Complete Time: 16:20 ms3 07/06 12:14 Order name: CBC with Diff; Complete Time: 14:59 ms3 07/06 12:14 Order name: LFT's; Complete Time: 16:20 ms3 07/06 12:14 Order name: Magnesium; Complete Time: 16:20 ms3 07/06 12:14 Order name: Troponin HS; Complete Time: 16:20 ms3 07/06 13:57 Order name: CBC Smear Scan; Complete Time: 14:59 EDMS 07/06 12:14 Order name: XRAY Chest (1 view); Complete Time: 13:52 ms3 07/06 12:14 Order name: EKG; Complete Time: 12:16 ms3 07/06 12:14 Order name: Cardiac monitoring; Complete Time: 12:26 ms3 07/06 12:14 Order name: EKG - Nurse/Tech; Complete Time: 13:00 ms3 07/06 12:14 Order name: IV Saline Lock; Complete Time: 13:39 ms3 07/06 12:14 Order name: Labs collected and sent; Complete Time: 12:47 ms3 07/06 13:53 Order name: CT Head Brain wo Cont; Complete Time: 14:59 ms3 07/06 14:17 Order name: Urine Dipstick-Ancillary; Complete Time: 14:59 EDMS 07/06 12:14 Order name: O2 Per Protocol; Complete Time: 12:26 ms3 07/06 12:14 Order name: O2 Sat Monitoring; Complete Time: 12:26 ms3 07/06 13:02 Order name: Labs - recollect needed: recollect cbc; Complete Time: 13:41 bd 07/06 13:43 Order name: Urine Dipstick-Ancillary (obtain specimen); Complete Time: 14:21 [facility] 07/06 13:46 Order name: Cath; Complete Time: 14:21 [facility] 07/06 13:49 Order name: Labs - recollect needed: recollect green top; Complete Time: 15:43 bd EC:56 Rate is 60 beats/min. Rhythm is regular. QRS [place] is Normal. [place] interval is normal. QRS ms3 interval is normal. Clinical impression: No evidence of ischemia. Interpreted by me. Reviewed by me. Administered Medications: No medications were administered Disposition Summary: 07/06/22 16:25 Discharge Ordered Location: Home ms3 Condition: Stable ms3 Diagnosis - Anemia, unspecified ms3 - Fatigue ms3 Followup: ms3 - With: Private Physician - When: 2 - 3 days - Reason: Recheck today's complaints Discharge Instructions: - Discharge Summary Sheet ms3 - Anemia ms3 Forms: - Medication Reconciliation Form ms3 - Thank You Letter ms3 - Antibiotic Education ms3 - Prescription Opioid Use ms3 Signatures: Dispatcher [employer] Justyna Barajas Jonathon, RN RN jd3 Barak Walker DO DO ms3
[2022-07-06 18:49] VITALS: TEMP 97.6
[2022-07-06 18:55] VITALS: O2SAT 98
[2022-07-06 18:56] VITALS: BP 163/90
--- NOTE | 2022-07-07 14:33 | EKG ---
Test Date: 2022-07-06 Test Time: 12:56:21 Shop Router: GERONIMO MEASUREMENT RESULTS: Intervals: Rate: 60 DC: 234 QRSD: 146 QT: 484 QTc: 484 [place]: P: 82 DC: 234 QRS: 61 T: 50 INTERPRETIVE STATEMENTS: Sinus rhythm with 1st degree AV block Right bundle branch block Abnormal ECG Compared to ECG 06/27/2022 13:55:26 T-wave abnormality no longer present Possible ischemia no longer present Electronically Signed On 07-07-22 14:30:14 CDT by Adrian Martin
== END 2022-07-06 18:44 | disposition home or self-care (01) ==
LOC: ER 11:58
DX: D64.9 Anemia, unspecified (principal); R53.83 Other fatigue; F03.90 Unspecified dementia, unspecified severity, without behavioral disturbance, psychotic disturbance, mood disturbance, and anxiety; Z88.5 Allergy status to narcotic agent; Z88.8 Allergy status to other drugs, medicaments and biological substances
CPT/HCPCS: 36415; 51702; 70450; 71045; 80048; 80076; 81003; 83735; 84484; 85025; 93005; 99284

== ENCOUNTER 2022-07-25 05:30 | Observation (INO) | payer OTHER ==
--- OUTSIDE RECORDS SUMMARY | 2022-07-25 05:40 | XMS REPORT | Continuity of Care Document ---
:1935 Author Organization [facility] t Address [address] [place] [address] Care Team Providers Name Role Phone No MD, Pcp [facility] Primary Care Physician Unavailable JUAQUIN MCINTYRE Attending Clinician Unavailable SMITH BETANCOURT Attending Clinician Unavailable SMITH BETANCOURT Attending Clinician Unavailable Doctor Unassigned, [place] Attending Clinician Unavailable Jamil Macias RN Attending Clinician Unavailable ACACIA DEL TORO Attending Clinician Unavailable Srinath Cohen DO Attending Clinician Acacia Del Toro MD Attending Clinician Ca Meléndez MD Attending Clinician Therapy, [facility] Attending Clinician Unavailable Unknown, Attending Attending Clinician Unavailable UNKNOWN, ATTENDING Attending Clinician Unavailable Paco Tariq RN Attending Clinician Unavailable Only, Kevin Db Test Attending Clinician Unavailable Jud Parra Attending Clinician JUD CHUA Attending Clinician Unavailable JUAQUIN MCINTYRE Admitting Clinician Unavailable SMITH BETANCOURT Admitting Clinician Unavailable ACACIA DEL TORO Admitting Clinician Unavailable Acacia Del Toro MD Admitting Clinician LUIS E DOMINGUEZ Admitting Clinician Unavailable Payers Payer Name Policy Type Policy Number Effective Date Expiration Date S ource MEDICARE A B [id number] 1998 00:00:00 [facility] [id number] 2019 HEALTHCARE 00:00:00 MEDICARE PART A \\T\\ [id number] 1998 B 00:00:00 Problems Condition Condition Condition Status Onset [...] Formattin ity of 00:00: g of this [place] 00 note Medical might be Branch different from the original. Added automatic ally from request for surgery [id number] Acute Acute Disease Active [facility] [...] Formattin ity of 00:00: g of this [place] 00 note Medical might be Branch different from the original. Right hand pain Disturbanc Disturbanc Disease Active U patricia e of skin e of skin 12-04 [...] of and and 00:00: g of this [place] radiculiti radiculiti 00 note Me dical s, s, might be Branch unspecifie unspecifie different d d from the original. Cervical radiculop athy Osteoarthr Osteoarthr Disease Active Overview : Univers itis itis 3-26 Formattin ity of 00:00: g of this [place] 00 note Medical might be Branch different from the original. ICD10 Diagnosis Term Correspondent Utility Esophageal Esophageal Disease Active 2005-09 U nivers reflux reflux 1-15 ity of 00:00: [place] 00 Medical Branch Diabetic Diabetic Disease Active 2005-09 Overview: Un teo polyneurop polyneurop 1-15 Formattin ity of athy athy 00:00: g of this [place] 00 note Medical might be Branch different from the original. ICD10 Diagnosis Term Correspondent Utility Chronic Chronic Disease Active 2005-09 Univers depressive depressive 1-15 it y of personalit personalit 00:00: [place] y disorder y disorder 00 Me dical Branch HLD HLD Disease Active 2005-09 Overview: Univer s (hyperlipi (hyperlipi 1-15 Formattin ity of demia) demia) 00:00: g of this [place] 00 note Medical might be Branch different from the original. 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 ICD10 Diagnosis Term Correspondent Utility Allergies, Adverse Reactions, Alerts Allergy Allergy [...] Natural father High blood pressure C HI [facility] Social History Social Habit Start Date Stop Date Quantity Comments Source History SDOH [facility] Alcohol Binge Medical Natali[place] ter History SDOH [facility] Alcohol Comment Medical C enter History SDOH [facility] Alcohol Std Medical Cent[facility] r Drinks History SDOH 2022-06-28 2022-06-28 2 [place] [facility] Med 00:00:00 00:00:00 [place] Medic al Branch History SDOH 2022-06-28 2022-06-28 2 [place] [facility] Non-Med 00:00:00 00:00:00 [place] M edical Branch Exposure to 2022-06-10 2022-06-20 Not sure [facility] SARS-CoV-2 00:00:00 14:10:00 [place] Medical (event) Branch History SDOH 2020-03-27 2020-03-[address] [facility] Alcohol Frequency 00:00:00 00:00:00 [facility] Tobacco use and 2020-03-26 2020-03-[address] [facility] exposure 00:00:00 00:00:00 [facility] Alcohol intake 2020-03-26 2020-03-[address] [facility] 00:00:00 00:00:00 non-drinker of Medical Ce nter alcohol (finding) Sex Assigned At [address] [facility] 00:00:00 00:00:00 [facility] Smoking Status Start Date Stop Date Source Never smoked tobacco [facility] Medications Ordered Filled Start Stop Current Ordering Indication Dosage Frequency Signature Comments Components Source Medication Medication Date Date Medication? Clinician (SIG) Name Name amitriptyli 2021-09- Yes [id number] 25mg Take 1 Univers ne 25 mg 0-23 10-31 tablet by ity o f tablet 00:00: 04:59 mouth at [place] 00 :00 bedtime Medical for 7 Branch days. amitriptyli 2021-09- Yes [id number] 25mg Take 1 Univers ne 25 mg 0-23 10-31 tablet by ity o f tablet 00:00: 04:59 mouth at [place] 00 :00 bedtime Medical for 7 Branch days. amitriptyli 2021-09- Yes [id number] 25mg Take 1 Univers ne 25 mg 0-23 10-31 tablet by ity o f tablet 00:00: 04:59 mouth at [place] 00 :00 bedtime Medical for 7 Branch days. amitriptyli 2021-09- Yes [id number] 25mg Take 1 Univers ne 25 mg 0-23 10-31 tablet by ity o f tablet 00:00: 04:59 mouth at [place] 00 :00 bedtime Medical for 7 Branch days. tamsulosin 2021-09 Yes .4mg 0.4 mg, Univ ers (FLOMAX) 0-16 Oral, QHS, ity o f capsule 0.4 02:00: First dose [place] mg 00 on [facility] 06/25/22 Branch at 2100, Until Discontinu ed, Routine amLODIPine 2021-09 Yes 5mg 5 mg, Univer s (NORVASC) 0-16 Oral, QHS, ity of tablet 5 mg 02:00: First dose [place] 00 on [facility] 06/25/22 Branch at 2100, Until Discontinu ed, Routine tamsulosin 2021-09- No .4mg 0.4 mg, Uni vers (FLOMAX) 0-16 10-15 Oral, QHS, ity of capsule 0.4 02:00: 21:09 First dose [place] mg 00 :41 on [facility] 06/25/22 Branch at 2100, Until Discontinu ed, Routine amLODIPine 2021-09- No 5mg 5 mg, Unive rs (NORVASC) 0-16 10-15 Oral, QHS, ity of tablet 5 mg 02:00: 21:09 First dose [place] 00 :41 on [facility] 06/25/22 Branch at 2100, Until Discontinu ed, Routine pantoprazol 2021-09- Yes [id number] 40mg Take 1 Univers e 0-16 01-15 tablet by ity of (PROTONIX) 00:00: 05:59 mouth in [place] 40 mg EC 00 :00 the Medical tablet morning Branch for 90 days. vitamin 2021-09- Yes [id number] 1000ug Take 1 U nivers B-12 1,000 0-16 01-15 tablet by ity of mcg tablet 00:00: 05:59 mouth in [place] 00 :00 the Medical morning Branch for 90 days. pantoprazol 2021-09- Yes [id number] 40mg Take 1 Univers e 0-16 01-15 tablet by ity of (PROTONIX) 00:00: 05:59 mouth in [place] 40 mg EC 00 :00 the Medical tablet morning Branch for 90 days. vitamin 2021-09- Yes [id number] 1000ug Take 1 U nivers B-12 1,000 0-16 01-15 tablet by ity of mcg tablet 00:00: 05:59 mouth in [place] 00 :00 the Medical morning Branch for 90 days. pantoprazol 2021-09- Yes [id number] 40mg Take 1 Univers e 0-16 01-15 tablet by ity of (PROTONIX) 00:00: 05:59 mouth in [place] 40 mg EC 00 :00 the Medical tablet morning Branch for 90 days. vitamin 2021-09- Yes [id number] 1000ug Take 1 U nivers B-12 1,000 0-16 01-15 tablet by ity of mcg tablet 00:00: 05:59 mouth in [place] 00 :00 the Medical morning Branch for 90 days. pantoprazol 2021-09- Yes [id number] 40mg Take 1 Univers e 0-16 01-15 tablet by ity of (PROTONIX) 00:00: 05:59 mouth in [place] 40 mg EC 00 :00 the Medical tablet morning Branch for 90 days. vitamin 2021-09- Yes [id number] 1000ug Take 1 U nivers B-12 1,000 0-16 01-15 tablet by ity of mcg tablet 00:00: 05:59 mouth in [place] 00 :00 the Medical morning Branch for 90 days. pantoprazol 2021-09- Yes [id number] 40mg Take 1 Univers e 0-16 01-15 tablet by ity of (PROTONIX) 00:00: 05:59 mouth in [place] 40 mg EC 00 :00 the Medical tablet morning Branch for 90 days. vitamin 2021-09- Yes [id number] 1000ug Take 1 U nivers B-12 1,000 0-16 -15 tablet by ity of mcg tablet 00:00: 05:59 mouth in [place] 00 :00 the Medical morning Branch for 90 days. pantoprazol 2021-09- Yes [id number] 40mg Take 1 Univers e 0-16 -15 tablet by ity of (PROTONIX) 00:00: 05:59 mouth in [place] 40 mg EC 00 :00 the Medical tablet morning Branch for 90 days. vitamin 2021-09- Yes [id number] 1000ug Take 1 U nivers B-12 1,000 [...] 40 mEq 00 :00 dose, On [facility] Branch 06/25/22 at 0845, Routine levETIRAcet 2021-09 Yes 250mg 250 mg, Un teo am (KEPPRA) 0-15 Oral, BID, it y of tablet 250 13:00: First dose [place] mg 00 on [facility] 06/25/22 Branch at 0800, Until Discontinu ed, Routine levETIRAcet 2021-09- No 250mg 250 mg, U nivers am (KEPPRA) 0-15 10-15 Oral, BID, i ty of tablet 250 13:00: 21:09 First dose [place] mg 00 :41 on [facility] 06/25/22 Branch at 0800, Until [...] 0-15 10-15 Entered ity of 12:45: 00:00 [place] 24 :00 Medical Branch metFORMIN 2021-09- Yes [id number] 500mg Take 1 Univers 500 mg 0-15 -14 tablet by ity of tablet 00:00: 05:59 mouth in [place] 00 :00 the Medical morning Branch and 1 tablet in the evening. Take with meals. Do all this for 90 days. tamsulosin 2021-09- Yes [id number] .4mg Take 1 Univers 0.4 mg 24 0-15 -14 capsule by ity of hr capsule 00:00: 05:59 mouth at [place] 00 :00 bedtime Medical for 90 Branch days. amLODIPine 2021-09- Yes [id number] 5mg Take 1 Univers 5 mg tablet 0-15 -14 tablet by it y of 00:00: 05:59 mouth at [place] 00 :00 bedtime Medical for 90 Branch days. levETIRAcet 2021-09- Yes [id number] 250mg Take 1 Univers am 250 mg 0-15 -14 tablet by ity of tablet 00:00: 05:59 mouth in [place] 00 :00 the Medical morning Branch and 1 tablet in the evening. Do all this for 90 days. lisinopriL 2021-09- Yes [id number] 20mg Take 1 Univers 20 mg 0-15 -14 tablet by ity of tablet 00:00: 05:59 mouth in [place] 00 :00 the Medical morning Branch and 1 tablet in the evening. Do all this for 90 days. FLUoxetine 2021-09- Yes [id number] 20mg Take 1 Univers 20 mg 0-15 -14 capsule by ity of capsule 00:00: 05:59 mouth in [place] 00 :00 the Medical morning Branch for 90 days. memantine 2021-09- Yes [id number] 10mg Take 1 U nivers 10 mg 0-15 -14 tablet by ity of tablet 00:00: 05:59 mouth in [place] 00 :00 the Medical morning Branch and 1 tablet in the evening. Do all this for 90 days. pyridostigm 2021-09- Yes [id number] 60mg Take 1 Univers ine 60 mg 0-15 -14 tablet by ity of tablet 00:00: 05:59 mouth as [place] 00 :00 needed for Medical Other Branch (HYPOTENSI ON) for up to 90 days. simvastatin 2021-09- Yes [id number] 20mg Take 1 Univers 20 mg 0-15 -14 tablet by ity of tablet 00:00: 05:59 mouth at [place] 00 :00 bedtime Medical for 90 Branch days. aspirin 81 2021-09- Yes [id number] 81mg Take 1 Univers mg chewable 0-15 -14 tablet by it y of tablet 00:00: 05:59 mouth in [place] 00 :00 the [facility] morning [place] for 90 days. metFORMIN 2021-09- Yes [id number] 500mg Take 1 Univers 500 mg 0-15 -14 tablet by ity of tablet 00:00: 05:59 mouth in [place] 00 :00 the [facility] morning Branch and 1 tablet in the evening. Take with meals. Do all this for 90 days. tamsulosin 2021-09- Yes [id number] .4mg Take 1 Univers 0.4 mg 24 009-24 capsule by ity of hr capsule 00:00: 05:59 mouth at [facility] 00 :00 bedtime Medical for 90 Branch days. amLODIPine 2021-09- Yes [id number] 5mg Take 1 Univers 5 mg tablet 009-24 tablet by it y of 00:00: 05:59 mouth at [place] 00 :00 bedtime [facility] for 90 Branch days. levETIRAcet 2021-09- Yes [id number] 250mg Take 1 Univers am 250 mg 009-24 tablet by ity of tablet 00:00: 05:59 mouth in [place] 00 :00 the [facility] morning [place] and 1 tablet in the evening. Do all this for 90 days. lisinopriL 2021-09- Yes [id number] 20mg Take 1 Univers 20 mg 009-24 tablet by ity of tablet 00:00: 05:59 mouth in [place] 00 :00 the [facility] morning [place] and 1 tablet in the evening. Do all this for 90 days. FLUoxetine 2021-09- Yes [id number] 20mg Take 1 Univers 20 mg 0- capsule by ity of capsule 00:00: 05:59 mouth in [place] 00 :00 the [facility] for 90 days. memantine 2021-09- Yes [id number] 10mg Take 1 U nivers 10 mg 015 - tablet by ity of tablet 00:00: 05:59 mouth in [place] 00 :00 the [facility] morning [place] and 1 tablet in the evening. Do all this for 90 days. pyridostigm 2021-09- Yes [id number] 60mg Take 1 Univers ine 60 mg 0- tablet by ity of tablet 00:00: 05:59 mouth as [place] 00 :00 needed for Medical Other Branch (HYPOTENSI ON) for up to 90 days. simvastatin 2021-09- Yes [id number] 20mg Take 1 Univers 20 mg 0-15 -14 tablet by ity of tablet 00:00: 05:59 mouth at [place] 00 :00 bedtime Medical for 90 Branch days. aspirin 81 2021-09- Yes [id number] 81mg Take 1 Univers mg chewable 0-15 -14 tablet by it y of tablet 00:00: 05:59 mouth in [place] 00 :00 the Medical morning Branch for 90 days. KCL 20 mEq 2021-09- Yes [id number] 40meq Take 2 Univers tablet 0-15 -14 tablets by ity of 00:00: 05:59 mouth in [place] 00 :00 the Medical morning Branch for 90 days. metFORMIN 2021-09- Yes [id number] 500mg Take 1 [facility] 500 mg 0-15 -14 tablet by ity of tablet 00:00: 05:59 mouth in [place] 00 :00 the Medical morning Branch and 1 tablet in the evening. Take with meals. Do all this for 90 days. tamsulosin 2021-09- Yes [id number] .4mg Take 1 Univers 0.4 mg 24 0-25 09- capsule by ity of hr capsule 00:00: 05:59 mouth at [facility] 00 :00 bedtime Medical for 90 Branch days. amLODIPine 2021-09- Yes [id number] 5mg Take 1 Univers 5 mg tablet 009-24 tablet by it y of 00:00: 05:59 mouth at [place] 00 :00 bedtime Medical for 90 Branch days. levETIRAcet 2021-09- Yes [id number] 250mg Take 1 Univers am 250 mg 0-15 -14 tablet by ity of tablet 00:00: 05:59 mouth in [place] 00 :00 the Medical morning Branch and 1 tablet in the evening. Do all this for 90 days. lisinopriL 2021-09- Yes [id number] 20mg Take 1 Univers 20 mg 0-15 -14 tablet by ity of tablet 00:00: 05:59 mouth in [place] 00 :00 the Medical morning Branch and 1 tablet in the evening. Do all this for 90 days. FLUoxetine 2021-09- Yes [id number] 20mg Take 1 Univers 20 mg 0-15 -14 capsule by ity of capsule 00:00: 05:59 mouth in [place] 00 :00 the Medical morning Branch for 90 days. memantine 2021-09- Yes [id number] 10mg Take 1 U nivers 10 mg 0-15 -14 tablet by ity of tablet 00:00: 05:59 mouth in [place] 00 :00 the Medical morning Branch and 1 tablet in the evening. Do all this for 90 days. pyridostigm 2021-09- Yes [id number] 60mg Take 1 Univers ine 60 mg 0-15 -14 tablet by ity of tablet 00:00: 05:59 mouth as [place] 00 :00 needed for Medical Other Branch (HYPOTENSI ON) for up to 90 days. simvastatin 2021-09- Yes [id number] 20mg Take 1 Univers 20 mg 0-15 -14 tablet by ity of tablet 00:00: 05:59 mouth at [place] 00 :00 bedtime Medical for 90 Branch days. aspirin 81 2021-09- Yes [id number] 81mg Take 1 Univers mg chewable 0-09-24 tablet by it y of tablet 00:00: 05:59 mouth in [place] 00 :00 the Medical morning Branch for 90 days. KCL 20 mEq 2021-09- Yes [id number] 40meq Take 2 Univers tablet 009-24 tablets by ity of 00:00: 05:59 mouth in [place] 00 :00 the Medical morning Branch for 90 days. metFORMIN 2021-09- Yes [id number] 500mg Take 1 Univers 500 mg 0-09-24 tablet by ity of tablet 00:00: 05:59 mouth in [place] 00 :00 the Medical morning Branch and 1 tablet in the evening. Take with meals. Do all this for 90 days. tamsulosin 2021-09- Yes [id number] .4mg Take 1 Univers 0.4 mg 24 0-09-24 capsule by ity of hr capsule 00:00: 05:59 mouth at [facility] 00 :00 bedtime Medical for 90 Branch days. amLODIPine 2021-09- Yes [id number] 5mg Take 1 Univers 5 mg tablet 009-24 tablet by it y of 00:00: 05:59 mouth at [place] 00 :00 bedtime Medical for 90 Branch days. levETIRAcet 2021-09- Yes [id number] 250mg Take 1 Univers am 250 mg 0-15 -14 tablet by ity of tablet 00:00: 05:59 mouth in [place] 00 :00 the Medical morning Branch and 1 tablet in the evening. Do all this for 90 days. lisinopriL 2021-09- Yes [id number] 20mg Take 1 Univers 20 mg 0-15 -14 tablet by ity of tablet 00:00: 05:59 mouth in [place] 00 :00 the Medical morning Branch and 1 tablet in the evening. Do all this for 90 days. FLUoxetine 2021-09- Yes [id number] 20mg Take 1 Univers 20 mg 0-15 -14 capsule by ity of capsule 00:00: 05:59 mouth in [place] 00 :00 the Medical morning Branch for 90 days. memantine 2021-09- Yes [id number] 10mg Take 1 U nivers 10 mg 0-15 -14 tablet by ity of tablet 00:00: 05:59 mouth in [place] 00 :00 the Medical morning Branch and 1 tablet in the evening. Do all this for 90 days. pyridostigm 2021-09- Yes [id number] 60mg Take 1 Univers ine 60 mg 0-15 -14 tablet by ity of tablet 00:00: 05:59 mouth as [place] 00 :00 needed for Medical Other Branch (HYPOTENSI ON) for up to 90 days. simvastatin 2021-09- Yes [id number] 20mg Take 1 Univers 20 mg 0-15 -14 tablet by ity of tablet 00:00: 05:59 mouth at [place] 00 :00 bedtime Medical for 90 Branch days. aspirin 81 2021-09- Yes [id number] 81mg Take 1 Univers mg chewable 0-15 -14 tablet by it y of tablet 00:00: 05:59 mouth in [place] 00 :00 the Medical morning Branch for 90 days. KCL 20 mEq 2021-09- Yes [id number] 40meq Take 2 Univers tablet 0-15 -14 tablets by ity of 00:00: 05:59 mouth in [place] 00 :00 the Medical morning Branch for 90 days. metFORMIN 2021-09- Yes [id number] 500mg Take 1 Univers 500 mg 0-15 -14 tablet by ity of tablet 00:00: 05:59 mouth in [place] 00 :00 the Medical morning Branch and 1 tablet in the evening. Take with meals. Do all this for 90 days. tamsulosin 2021-09- Yes [id number] .4mg Take 1 Univers 0.4 mg 24 0-25 09- capsule by ity of hr capsule 00:00: 05:59 mouth at [place] 00 :00 bedtime Medical for 90 Branch days. amLODIPine 2021-09- Yes [id number] 5mg Take 1 Univers 5 mg tablet 0- tablet by it y of 00:00: 05:59 mouth at [place] 00 :00 bedtime Medical for 90 Branch days. levETIRAcet 2021-09- Yes [id number] 250mg Take 1 Univers am 250 mg 009-24 tablet by ity of tablet 00:00: 05:59 mouth in [place] 00 :00 the Medical morning Branch and 1 tablet in the evening. Do all this for 90 days. lisinopriL 2021-09- Yes [id number] 20mg Take 1 Univers 20 mg 0-15 - tablet by ity of tablet 00:00: 05:59 mouth in [place] 00 :00 the Medical morning Branch and 1 tablet in the evening. Do all this for 90 days. FLUoxetine 2021-09- Yes [id number] 20mg Take 1 Univers 20 mg 0-15 - capsule by ity of capsule 00:00: 05:59 mouth in [place] 00 :00 the Medical morning Branch for 90 days. memantine 2021-09- Yes [id number] 10mg Take 1 U nivers 10 mg 0-15 09-24 tablet by ity of tablet 00:00: 05:59 mouth in [place] 00 :00 the Medical morning Branch and 1 tablet in the evening. Do all this for 90 days. pyridostigm 2021-09- Yes [id number] 60mg Take 1 Univers ine 60 mg 0-15 - tablet by ity of tablet 00:00: 05:59 mouth as [place] 00 :00 needed for Medical Other Branch (HYPOTENSI ON) for up to 90 days. simvastatin 2021-09- Yes [id number] 20mg Take 1 Univers 20 mg 0-15 -14 tablet by ity of tablet 00:00: 05:59 mouth at [place] 00 :00 bedtime Medical for 90 Branch days. aspirin 81 2021-09- Yes [id number] 81mg Take 1 Univers mg chewable 0-25 09- tablet by it y of tablet 00:00: 05:59 mouth in [place] 00 :00 the [facility] morning [place] for 90 days. KCL 20 mEq 2021-09- Yes [id number] 40meq Take 2 Univers tablet 0-25 09-14 tablets by ity of 00:00: 05:59 mouth in [place] 00 :00 the [facility] morning [place] for 90 days. metFORMIN 2021-09- Yes [id number] 500mg Take 1 Univers 500 mg 0-15 -14 tablet by ity of tablet 00:00: 05:59 mouth in [place] 00 :00 the [facility] morning [place] and 1 tablet in the evening. Take with meals. Do all this for 90 days. tamsulosin 2021-09- Yes [id number] .4mg Take 1 Univers 0.4 mg 24 09-24 capsule by ity of hr capsule 00:00: 05:59 mouth at [facility] 00 :00 [facility] for 90 Branch days. amLODIPine 2021-09- Yes [id number] 5mg Take 1 Univers 5 mg tablet 009-24 tablet by it y of 00:00: 05:59 mouth at [place] 00 :00 [facility] for 90 Branch days. levETIRAcet 2021-09- Yes [id number] 250mg Take 1 Univers am 250 mg 009-24 tablet by ity of tablet 00:00: 05:59 mouth in [place] 00 :00 the [facility] morning [place] and 1 tablet in the evening. Do all this for 90 days. lisinopriL 2021-09- Yes [id number] 20mg Take 1 Univers 20 mg 0-15 -14 tablet by ity of tablet 00:00: 05:59 mouth in [place] 00 :00 the [facility] morning [place] and 1 tablet in the evening. Do all this for 90 days. FLUoxetine 2021-09- Yes [id number] 20mg Take 1 Univers 20 mg 0-15 -14 capsule by ity of capsule 00:00: 05:59 mouth in [place] 00 :00 the [facility] for 90 days. memantine 2021-09- Yes [id number] 10mg Take 1 U nivers 10 mg 0-15 01-14 tablet by ity of tablet 00:00: 05:59 mouth in [place] 00 :00 the Medical morning Branch and 1 tablet in the evening. Do all this for 90 days. pyridostigm 2021-09- Yes [id number] 60mg Take 1 Univers ine 60 mg 0-15 01-14 tablet by ity of tablet 00:00: 05:59 mouth as [place] 00 :00 needed for Medical Other Branch (HYPOTENSI ON) for up to 90 days. simvastatin 2021-09- Yes [id number] 20mg Take 1 Univers 20 mg 0-15 01-14 tablet by ity of tablet 00:00: 05:59 mouth at [place] 00 :00 bedtime Medical for 90 Branch days. aspirin 81 2021-09- Yes [id number] 81mg Take 1 Univers mg chewable 0-15 -14 tablet by it y of tablet 00:00: 05:59 mouth in [place] 00 :00 the Medical morning Branch for 90 days. KCL 20 mEq 2021-09- Yes [id number] 40meq Take 2 Univers tablet 0-15 -14 tablets by ity of 00:00: 05:59 mouth in [place] 00 :00 the Medical morning Branch for 90 days. gabapentin 2021-09- Yes [id number] 300mg Take 1 Univers 300 mg 0-15 12-15 capsule by ity of capsule 00:00: 05:59 mouth as [place] 00 :00 needed for Medical Pain Branch (scale 4-6) for up to 60 days. gabapentin 2021-09- Yes [id number] 300mg Take 1 [facility] 300 mg 0-15 12-15 capsule by ity of capsule 00:00: 05:59 mouth as [place] 00 :00 needed for Medical Pain Branch (scale 4-6) for up to 60 days. gabapentin 2021-09- Yes [id number] 300mg Take 1 Univers 300 mg 0-15 12-15 capsule by ity of capsule 00:00: 05:59 mouth as [place] 00 :00 needed for Medical Pain Branch (scale 4-6) for up to 60 days. gabapentin 2021-09- Yes [id number] 300mg Take 1 Univers 300 mg 0-15 12-15 capsule by ity of capsule 00:00: 05:59 mouth as [place] 00 :00 needed for Medical Pain Branch (scale 4-6) for up to 60 days. gabapentin 2021-09- Yes [id number] 300mg Take 1 Univers 300 mg 0-15 12-15 capsule by ity of capsule 00:00: 05:59 mouth as [place] 00 :00 needed for Medical Pain Branch (scale 4-6) for up to 60 days. gabapentin 2021-09- Yes [id number] 300mg Take 1 Univers 300 mg 0-15 12-15 capsule by ity of capsule 00:00: 05:59 mouth as [place] 00 :00 needed for Medical Pain Branch (scale 4-6) for up to 60 days. amitriptyli 2021-09- Yes [id number] 100mg Take 2 Univers ne 50 mg 0-15 10-23 tablets by ity of tablet 00:00: 04:59 mouth at [place] 00 :00 bedtime Medical for 7 Branch days. amitriptyli 2021-09- Yes [id number] 100mg Take 2 Univers ne 50 mg 0-15 10-23 tablets by ity of tablet 00:00: 04:59 mouth at [place] 00 :00 bedtime Medical for 7 Branch days. amitriptyli 2021-09- Yes [id number] 100mg Take 2 Univers ne 50 mg 0-15 10-23 tablets by ity of tablet 00:00: 04:59 mouth at [place] 00 :00 bedtime Medical for 7 Branch [...] exas 20 mg/mL (2 40 :35 on Fri Medica l %) 06/24/22 Branch injection at 0831, Until 06/24/22 at 0836, Routine, CV Intraproce dure vancomycin 2021-09- No CONTINUOUS Univers 1000 mg in 0-14 10-14 PRN, ity of NS 200 mL 13:30: 13:30 Starting [place] as RTU IV 55 :55 on Mon [facility] Piggyback 06/24/22 Branch at 0830, Until Mon06/24/22 at 0830, Administer over 60 Minutes, CV Intraproce dure metFORMIN 2021-09 Yes 500mg 500 mg, Univ ers (GLUCOPHAGE 0-13 Oral, BID ity of ) tablet 22:00: MEALS, [place] 500 mg 00 First dose Medical on [facility] 06/23/22 at 1700, Until Discontinu ed, Routine metFORMIN 2021-09- No 500mg 500 mg, Uni vers (GLUCOPHAGE 0-13 10-15 Oral, BID it y of ) tablet 22:00: 21:09 MEALS, [place] 500 mg 00 :41 First dose Medical on [facility] 06/23/22 at 1700, Until Discontinu ed, Routine amLODIPine 2021-09- No 5mg 5 mg, Unive rs (NORVASC) 0-23 06- Oral, ity of tablet 5 mg 16:52: 17:31 [place] dose, On [facility] 06/23/22 at 1200, Routine captopriL 2021-09- No 12.5mg 12.5 mg, U nivers (CAPOTEN) 0- 10- Oral, ity of tablet 12.5 04:45: 04:56 [place] :00 dose, On [facility] 06/22/22 at 2345, Routine labetaloL 2021-09- No 5mg 5 mg, Slow U nivers (NORMODYNE) 0- 10- IV Push, ity of injection 5 03:45: 03:12 [place] 00 :00 dose, On [facility] 06/22/22 at 2245, Routine vitamin 2021-09- No 1000ug 1,000 mcg, U nivers B-12 0-12 10-15 Oral, ity of (CYANOCOBAL 20:15: 12:15 DAILY, [place] CODY) 00 :01 First dose Medical tablet (after Branch 1,000 mcg last modificati on) on [facility] 06/22/22 at 1515, Until Discontinu ed, Routine tamsulosin 2021-09 No .4mg 0.4 mg, Uni vers (FLOMAX) 0-12 10-15 Oral, ity of capsule 0.4 16:30: 12:15 DAILY, [place] mg 00 :01 First dose Medical on [facility] Branch 06/22/22 at 1130, Until Discontinu ed, Routine [...] No 1000mg 1,000 mg, Unive rs dextran 006-22 IV ity of (INFED) 13:15: 19:42 [place] 1,[place] mg [place] 00 :40 ONCE, 1 Medic al NaCl 0.9% dose, On Branch (NS) 500 mL [facility] IV infusion 06/22/22 at 0815, Administer over 1.5 Hours, 500 mL iron 2021-09 No 25mg 25 mg, IV Univers dextran 012 Piggyback, ity o f (INFED) 25 13:15: 17:35 ONCE, 1 [place] mg in NaCl 00 :53 dose, On Medic al 0.9% (NS) [facility] Branch 100 mL IV 06/22/22 piggyback at 0815, Administer over 15 Minutes, 100 mL magnesium 2021-09 No 4g 4 g, IV Univ ers sulfate in 0-08 20-12 Piggyback, it y of water 4 12:15: 15:48 at 25 [place] gram/50 mL 00 :01 mL/hr Medical (8 %) IV Administer Branc h Piggyback 4 over 120 g Minutes, ONCE, 1 dose, On [facility] 06/22/22 at 0715, Routine amLODIPine 2021-09 No 5mg 5 mg, Unive rs (NORVASC) 0-12 10-13 Oral, ity of tablet 5 mg 08:30: 16:53 DAILY, [place] 00 :37 First dose Medical on [facility] 06/22/22 at 0330, Until Discontinu ed, Routine melatonin 2021-09 Yes 3mg 3 mg, Univers (MELATIN) 0-12 Oral, QHS, ity of tablet 3 mg 02:00: First dose [place] 00 on [facility] 06/21/22 [place] at 2100, Until Discontinu ed, Routine melatonin 2021-09 No 3mg 3 mg, Univer s (MELATIN) 0-12 10-15 Oral, QHS, ity of tablet 3 mg 02:00: 21:09 First dose [place] 00 :41 on [facility] 06/21/22 [place] at 2100, Until Discontinu ed, Routine hydrOXYzine 2021-09 No 10mg 10 mg, Uni vers (ATARAX) 0-12 10-12 Oral, ity of tablet 10 02:00: 01:08 ONCE, 1 [place] 00 :00 dose, On [facility] 06/21/22 at 2100, Routine enoxaparin 2021-09 Yes 40mg 40 mg, Unive rs (LOVENOX) 0-11 Subcutaneo ity of injection 22:00: [place], [place]ILY, [place] 40 mg 00 First dose Medical on [facility] 06/21/22 at 1700, Until Discontinu ed, Routine enoxaparin 2021-09 No 40mg 40 mg, Univ ers (LOVENOX) 0-11 10-15 Subcutaneo ity of injection 22:00: 21:09 [place], DAILY, [place] 40 mg 00 :41 First dose Medical on [facility] 06/21/22 at 1700, Until Discontinu ed, Routine hydroCHLORO 2021-09 No 25mg 25 mg, Uni vers thiazide 0-11 10-11 Oral, ity of (ESIDRIX) 19:00: 20:35 DAILY, [place] tablet 25 00 :31 First dose Medi joyce mg (after Branch last modificati on) on Counts Include [facility] 06/21/22 at 1400, Until Discontinu ed, Routine Sliding 2021-09 Yes Subcutaneo Univ ers Scale 0-11 us, TID ity of Insulin - 17:00: MEALS+HS, [place] Lispro 00 First dose Medical (HumaLOG) + on [facility] 06/21/22 Testing at 1200, Until Discontinu ed, Routine Sliding 2021-09- No Subcutaneo Uni vers Scale 0-11 10-15 us, TID ity of Insulin - 17:00: 21:09 MEALS+HS, [place] Lispro 00 :41 First dose Medical (HumaLOG) + on Counts Include [facility] Branch [facility] 06/21/22 Testing at 1200, Until Discontinu ed, Routine sulfur 2021-09- No [id number] 5mL 5 mL, Unive rs hexafluorid 0-11 10-11 Intravenou i ty of e microsphr 17:00: 17:00 s, ONCE, 1 [place] (LUMASON) 00 :00 dose, On Medica l injection 5 [facility] mL 06/21/22 at 1200, Routine
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 approving Restricted medication : WILTON NICHOLAS enalapril 2021-09 Yes 20mg 20 mg, Univer s (VASOTEC) 0-11 Oral, BID, ity of tablet 20 16:00: [place] dose [place] mg 00 on [facility] 06/21/22 Branch at 1100, Until Discontinu ed, Routine enalapril 2021-09- No 20mg 20 mg, Unive rs (VASOTEC) 0-11 10-15 Oral, BID, ity of tablet 20 16:00: 21:09 [place] dose [place] mg 00 :41 on [facility] 06/21/22 Branch at 1100, Until Discontinu ed, Routine dextrose 2021-09 Yes 250mL 250 mL, IV Un teo 10% (D10W) 0-11 Infusion, ity of bolus 15:42: PRN - SEE [place] infusion 37 INSTRUCTIO Medic al 250 mL NS, Branch Administer over 60 Minutes, Other, If blood glucose is < or = 70 mg/dL and patient is unable to swallow or has mental status changes, Starting on Counts Include [facility] 06/21/22 at 1042
If blood glucose is [...] glucose is < 80 mg/dL, repeat.
dextrose 2021-09- No 250mL 250 mL, IV U nivers [...] KIT) 34 Starting Medical injection 1 on Branch mg 06/21/22 at 1042, Until Discontinu ed, YOKO, Blood Glucose < or = 70 mg/dL and patient is unable to swallow or has mental changes. glucagon 2021-09- No 1mg 1 mg, Univers (GLUCAGEN 0-11 10-15 Intramuscu ity of DIAGNOSTIC 15:42: 21:09 lar, PRN, [place] KIT) 34 :41 Starting Medical injection 1 on Branch mg 06/21/22 at 1042, Until 06/25/22 at 1609, YOKO, Blood Glucose < or = 70 mg/dL and patient is unable to swallow or has mental changes. acetaminoph 2021-09 Yes 650mg 650 mg, Un teo en 0-11 Oral, ity of (TYLENOL) 15:21: Q6HPRN, [place] tablet 650 10 Starting Medic al mg on [facility] 06/21/22 at 1021, Until Discontinu ed, Routine, Pain (scale 1-3) acetaminoph 2021-09- No 650mg 650 mg, U nivers en 0-11 - Oral, ity of (TYLENOL) 15:21: 21:09 Q6HPRN, [place] tablet 650 10 :41 Starting Medic al mg on [facility] 06/21/22 at 1021, Until 06/25/22 at 1609, Routine, Pain (scale 1-3) melatonin 2021-09- No 3mg 3 mg, Univer s (MELATIN) 006-21 Oral, ity of tablet 3 mg 09:15: 08:30 ONCE, 1 [place] 00 :[place] dose, On [facility] 06/21/22 at 0415, Routine aspirin 2021-09- No 325mg 325 mg, Unive rs E.C. 006-21 Oral, ity of (ECOTRIN) 08:30: 08:30 ONCE, 1 [place] tablet 325 00 :00 dose, On Medic al mg [facility] 06/21/22 at 0330, STAT atenoloL 2021-09- No 100mg 100 mg, Univ ers (TENORMIN) 006-21 Oral, ity of tablet 100 03:00: 02:13 ONCE, 1 [place] mg 00 :00 dose, On [facility] 06/20/22 at 2200, Routine cloNIDine 2021-09- No .2mg 0.2 mg, Univ ers (CATAPRES) 006-21 Oral, ity of tablet 0.2 02:15: 02:14 ONCE, 1 [place] mg 00 :00 dose, On [facility] 06/20/22 at 2115, STAT iopamidol 2021-09- No [id number] 150mL 150 mL, Univers (ISOVUE 0-10 10-10 Intravenou ity o f 370-500 mL) 21:15: 21:15 s, ONCE, 1 [place] injection 00 :00 dose, On Medica l 150 mL [facility] 06/20/22 at 1615, Routine acetaminoph 2021-09 No 1000mg 1,000 mg, Univers en 0-10 10-10 Oral, ity of (TYLENOL) 21:00: 20:46 ONCE, 1 [place] tablet 00 :00 dose, On Medical 1,000 mg [facility] 06/20/22 at 1600, YOKO piperacilli 2021-09- No 3.375g 3.375 g, Univers n-tazobacta 0-10 10-11 IV ity of m (ZOSYN) 19:30: 18:13 [place], [place] 3.375 g in 00 :39 Q8H ABX, Medic al NaCl 0.9% First dose Bran ch (NS) 100 mL on [facility] MINI-BAG 06/20/22 at 1430, Until Discontinu ed, Administer over 4 Hours, 100 mL
Reas on for Anti-Infec tive: Empiric Therapy for Suspected Infection< br>Empi deonte Therapy Site: Urine
D uration of therapy: 72 hours NaCl 0.9% 2021-09 No 1000mL at 999 Uni vers (NS) bolus 0-10 10-10 mL/hr, ity of infusion 19:30: 20:53 1,000 mL, [place] 1,000 mL 00 :00 IV Medical Piggyback, Branch ONCE, 1 dose, On [facility] 06/20/22 at 1430, STAT tamsulosin 2021- No [...] OFFICE TO MAKE AN APPOINTMEN T clopidogreL 2021-0 2- No TAKE 1 Uni vers 75 mg 05-13 10-15 TABLET BY ity of tablet 00:00: 00:00 MOUTH ONCE [place] 00 :00 DAILY Medical PATIENT Branch NEEDS TO CALL OFFICE TO MAKE AN APPOINTMEN T Insulin 2019-0 Yes 15U inject 15 Unive rs Glargine 7-19 Units ity of 100 unit/mL 00:00: under the [place] (3 mL) 00 skin. Medical injection Branch Insulin 2020-0 Yes 15U inject 15 Unive rs Glargine 7-19 Units ity of 100 unit/mL 00:00: under the [place] (3 mL) 00 skin. Medical injection Branch Insulin 2020-0 Yes 15U inject 15 Unive rs Glargine 7-19 Units ity of 100 unit/mL 00:00: under the [place] (3 mL) 00 skin. Medical injection Branch Insulin 2019-0 Yes 15U inject 15 Unive rs Glargine 7-19 Units ity of 100 unit/mL 00:00: under the [place] (3 mL) 00 skin. Medical injection Branch Insulin 2020-0 Yes 15U inject 15 Unive rs Glargine 7-19 Units ity of 100 unit/mL 00:00: under the [place] (3 mL) 00 skin. Medical injection Branch Insulin 2020-0 Yes 15U inject 15 Unive rs Glargine 7-19 Units ity of 100 unit/mL 00:00: under the [place] (3 mL) 00 skin. Medical injection Branch insulin 2019-0 Yes 15U QD [facility]ject 15 [facility] [...] (LANTUS 00:00: subcutaneo Medi joyce SOLOSTAR 00 [facility] Center U-100 nightly. INSULIN) 100 unit/mL (3 mL) In insulin 2019-0 Yes 15U QD Inject [facility] U-100 nightly. INSULIN) 100 unit/mL (3 mL) InPn memantine 2019-0 2020- No 5mg Q.5D Take [...] by mouth 2 Center (two) times daily. [facility] 10 2020-0 Yes 10mg QD Take [address] [facility] mg tablet 7-09 by mouth [facility] 00:00: daily. [address] BYSTOLIC 10 2020-0 Yes 10mg QD Take [address] [facility] [facility] mg tablet 7-09 by mouth [facility] 00:00: daily. [address] BYSTOLIC 10 2020-0 Yes 10mg QD Take [address] [facility] [facility] mg tablet 7-09 by mouth [facility] 00:00: daily. [address] BYSTOLIC 10 2020-0 Yes 10mg QD Take [address] [facility] mg tablet 7-09 by mouth [facility] 00:00: daily. [address] simvastatin 2020-0 Yes 20mg QD Take [address] [facility] [facility] (ZOCOR) 20 5-13 by mouth [facility] MG tablet 00:00: nightly. [address] tamsulosin 2020-0 Yes .4mg Take 0.[address] [facility] (FLOMAX) 5-13 mg by [facility] 0.4 mg Cap 00:00: mouth Medica l 24 hr 00 Daily Center capsule (1800). simvastatin 2020-0 Yes 20mg QD Take [address] [facility] (ZOCOR) 20 5-13 by mouth [facility] MG tablet 00:00: nightly. [address] tamsulosin 2020-0 Yes .4mg Take 0.[address] [facility] (FLOMAX) 5-13 mg by [facility] 0.4 mg Cap 00:00: mouth Medica l 24 hr 00 Daily Center capsule (1800). simvastatin 2020-0 Yes 20mg QD Take [address] [facility] (ZOCOR) 20 5-13 by mouth [facility] MG tablet 00:00: nightly. [address] tamsulosin 2020-0 Yes .4mg Take 0.[address] [facility] (FLOMAX) 5-13 mg by [facility] 0.4 mg Cap 00:00: mouth Medica l 24 hr 00 Daily Center capsule (1800). simvastatin 2020-0 Yes 20mg QD Take [address] (ZOCOR) 20 5-13 by mouth [facility] MG tablet 00:00: nightly. [address] tamsulosin 2020-0 Yes .4mg Take 0.[address] (FLOMAX) 5-13 mg by [facility] 0.4 mg Cap 00:00: mouth Medica l 24 hr 00 Daily [place] capsule (1800). omeprazole 2020-0 Yes 20mg QD Take [address] (PRILOSEC) 5-04 by mouth [facility] 20 MG 00:00: daily. Medical capsule 00 [place] omeprazole 2020-0 Yes 20mg QD Take [address] (PRILOSEC) 5-04 by mouth [facility] 20 MG 00:00: daily. Medical capsule [address] [place] [address] omeprazole 2020-0 Yes 20mg QD Take [address] (PRILOSEC) 5-04 by mouth [facility] 20 MG 00:00: daily. Medical capsule [address] [place] [address] omeprazole 2020-0 Yes 20mg QD Take [address] (PRILOSEC) 5-04 by mouth [facility] 20 MG 00:00: daily. Medical capsule 00 [place] fLUoxetine 2019-0 Yes 20mg QD Take [address] (PROZAC) 20 8-23 by mouth [facility] MG capsule 00:00: daily. Medic al 00 [place] melatonin 3 2019-0 Yes 3mg QD Take [address] mg Tab 8-23 by mouth [facility] tablet 00:00: nightly. Medical [address] [place] [address] fLUoxetine 2019-0 Yes 20mg QD Take [address] (PROZAC) 20 8-23 by mouth [facility] MG capsule 00:00: daily. Medic al 00 [place] melatonin 3 2019-0 Yes 3mg QD Take [address] mg Tab 8-23 by mouth [facility] tablet 00:00: nightly. [address] fLUoxetine Yes 20mg QD Take [address] (PROZAC) 20 8-23 by mouth [facility] MG capsule 00:00: daily. Medic al [address] [place] [address] melatonin 3 Yes 3mg QD Take [address] mg Tab 8-23 by mouth [facility] tablet 00:00: nightly. [address] fLUoxetine Yes 20mg QD Take [address] (PROZAC) 20 8-23 by mouth Luke [facility] MG capsule 00:00: daily. Medic al [address] [place] [address] 3 Yes 3mg QD Take [address] mg Tab 8-23 by mouth [facility] tablet 00:00: nightly. [address] PEPCID 20 Yes prn Univers MG ORAL TAB 6-11 ity of 04:52: [address] B COMPLEX 1 Yes None Univer s ORAL TAB 6-11 Entered ity of 04:52: [address] M-VIT ORAL Yes None Univers 6-11 Entered ity of 04:52: [address] 20 Yes prn Univers MG ORAL TAB 6-11 ity of 04:52: [address] COMPLEX 1 Yes None Univer s ORAL TAB 6-11 Entered ity of 04:52: [address] M-VIT ORAL Yes None Univers 6-11 Entered ity of 04:52: [address] 20 Yes prn Univers MG ORAL TAB 6-11 ity of 04:52: [address] COMPLEX 1 Yes None Univer s ORAL TAB 6-11 Entered ity of 04:52: [address] M-VIT ORAL Yes None Univers 6-11 Entered ity of 04:52: [address] 20 Yes prn Univers MG ORAL TAB 6-11 ity of 04:52: [address] COMPLEX 1 Yes None Univer s ORAL TAB 6-11 Entered ity of 04:52: [address] M-VIT ORAL Yes None Univers 6-11 Entered ity of 04:52: [address] Yes prn Univers MG ORAL TAB 6-10 ity of 23:52: [address] B COMPLEX 1 Yes None Univer s ORAL TAB 6-10 Entered ity of 23:52: [address] M-VIT ORAL Yes None Univers 6-10 Entered ity of 23:52: [address] PEPCID 20 Yes prn Univers MG ORAL TAB 6-10 ity of 23:52: [address] B COMPLEX 1 Yes None Univer s ORAL TAB 6-10 Entered ity of 23:52: [address] M-VIT ORAL Yes None Univers 6-10 Entered ity of 23:52: [address] lisinopriL 2014-09 Yes 40mg Take [address] (PRINIVIL,Z 2-21 by mouth [facility] ESTRIL) 40 00:00: Daily Medica l MG tablet 00 (1800). [place] lisinopriL 2014-09 Yes 40mg Take [address] (PRINIVIL,Z 2-21 by mouth [facility] ESTRIL) 40 00:00: Daily Medica l MG tablet 00 (1800). [place] lisinopriL 2014-09 Yes 40mg Take [address] (PRINIVIL,Z 2-21 by mouth Luke s ESTRIL) 40 00:00: Daily Medica l MG tablet 00 (1800). [place] lisinopriL 2014-09 Yes 40mg Take [address] (PRINIVIL,Z 2-21 by mouth Luke s ESTRIL) 40 00:00: Daily Medica l MG tablet 00 (1800). [place] PROTONIX 40 Yes [id number] 1 tab PO Univers MG ORAL 4-01 daily ity of TBEC 00:00: [place] [facility] PROTONIX 40 Yes [id number] 1 tab PO Univers MG ORAL 4-01 daily ity of TBEC 00:00: [place] [facility] PROTONIX 40 Yes [id number] 1 tab PO Univers MG ORAL 4-01 daily ity of TBEC 00:00: [address] PROTONIX 40 Yes [id number] 1 tab PO Univers MG ORAL 4-01 daily ity of TBEC 00:00: [place] [facility] PROTONIX 40 Yes [id number] 1 tab PO Univers MG ORAL 4-01 daily ity of TBEC 00:00: [place] 00 Medical Branch PROTONIX 40 2008-0 Yes [id number] 1 tab PO Univers MG ORAL 4-01 daily ity of TBEC 00:00: [place] 00 Medical Branch PROTONIX 40 2008-0 2021- No [id number] 1 tab PO Univers MG ORAL 4-01 10-15 daily ity of TBEC 00:00: 00:00 [place] 00 :00 Medical Branch PROTONIX 40 2008-0 2021- No [id number] 1 tab PO Univers MG ORAL 4-01 10-15 daily ity of TBEC 00:00: 00:00 [place] 00 :00 Medical Branch ENALAPRIL 2009-0 Yes [id number] 1 tab po Univers MALEATE 20 1-15 BID ity of MG ORAL TAB 00:00: [place] 00 Medical Branch ENALAPRIL 2008-0 Yes [id number] 1 tab po Univers MALEATE 20 1-15 BID ity of MG ORAL TAB 00:00: [place] 00 Medical Branch ENALAPRIL 2009-0 Yes [id number] 1 tab po Univers MALEATE 20 1-15 BID ity of MG ORAL TAB 00:00: [place] 00 Medical Branch ENALAPRIL 2009-0 Yes [id number] 1 tab po Univers MALEATE 20 1-15 BID ity of MG ORAL TAB 00:00: [place] 00 Medical Branch ENALAPRIL 2009-0 Yes [id number] 1 tab po Univers MALEATE 20 1-15 BID ity of MG ORAL TAB 00:00: [place] 00 Medical Branch ENALAPRIL 2009-0 Yes [id number] 1 tab po Univers MALEATE 20 1-15 BID ity of MG ORAL TAB 00:00: [place] 00 Medical Branch ENALAPRIL 2008-0 2022- No [id number] 1 tab po Univers MALEATE 20 1-15 10-15 BID ity of MG ORAL TAB 00:00: 00:00 [place] 00 :00 Medical Branch ENALAPRIL 2008-0 2022- No [id number] 1 tab po Univers MALEATE 20 1-15 10-15 BID ity of MG ORAL TAB 00:00: 00:00 [place] 00 :00 Medical Branch HYDROCHLORO 2008-1 Yes [id number] take 1 po Univers THIAZIDE 25 0-30 daily ity of MG ORAL TAB 00:00: [place] 00 Medical Branch HYDROCHLORO 2008-1 Yes [id number] take 1 po Univers THIAZIDE 25 0-30 daily ity of MG ORAL TAB 00:00: [place] [facility] HYDROCHLORO 2007-09 Yes [id number] take 1 po Univers THIAZIDE 25 0-30 daily ity of MG ORAL TAB 00:00: [place] [facility] HYDROCHLORO 2007-09 Yes [id number] take 1 po Univers THIAZIDE 25 0-30 daily ity of MG ORAL TAB 00:00: [place] [facility] HYDROCHLORO 2007-09 Yes [id number] take 1 po Univers THIAZIDE 25 0-30 daily ity of MG ORAL TAB 00:00: [place] [facility] HYDROCHLORO 2007-09 Yes [id number] take 1 po Univers THIAZIDE 25 0-30 daily ity of MG ORAL TAB 00:00: [place] [facility] HYDROCHLORO 2007-09- No [id number] take 1 po Univers THIAZIDE 25 0-30 10-15 daily ity of MG ORAL TAB 00:00: 00:00 [place] 00 : Medical Branch HYDROCHLORO 2007-09- No [id number] take 1 po Univers THIAZIDE 25 0-30 10-15 daily ity of MG ORAL TAB 00:00: 00:00 [place] 00 :00 Medical Branch GLIPIZIDE 5 Yes [...] 00:00: tab qpm Medical Branch GLIPIZIDE 5 2021- No tske 2 tab Univers MG ORAL TAB 9-09 10-15 qam and 1 it y of 00:00: 00:00 tab qpm [place] 00 :00 Medical Branch GLIPIZIDE 5 2021- No tske 2 tab Univers MG ORAL TAB 05-20 10-15 qam and 1 it y of 00:00: 00:00 tab qpm [place] 00 :00 Medical Branch ATENOLOL Yes [id number] one tab po Univers 100 MG ORAL 8-27 daily ity of TAB 00:00: [place] [facility] NORCO Yes 1 tab po Univers 7.5-325 MG 8-27 TID ity of ORAL TAB 00:00: Medical Branch AMITRIPTYLI Yes 2 tabs QHS Univers NE 50 MG 8-27 ity of ORAL TAB 00:00: Medical Branch METFORMIN Yes [id number] 1 tab PO Univers 850 MG ORAL 8-27 TID ity of TAB 00:00: Medical Branch CLONIDINE Yes [id number] take 1 po Univers 0.2 MG ORAL 8-27 qid for 1 ity of TAB 00:00: week, then [place] 00 tid for 1 Medical week, then Branch bid and prn thereafter PRAVASTATIN Yes [id number] take 1 po Univers 40 MG ORAL 8-27 qhs ity of TAB 00:00: [place] [facility] ATENOLOL Yes [id number] one tab po Univers 100 MG ORAL 8-27 daily ity of TAB 00:00: [place] [facility] NORCO Yes 1 tab po Univers 7.5-325 MG 8-27 TID ity of ORAL TAB 00:00: [place] [facility] AMITRIPTYLI Yes 2 tabs QHS Univers NE 50 MG 8-27 ity of ORAL TAB 00:00: [place] [facility] METFORMIN 2007- Yes [id number] 1 tab PO Univers 850 MG ORAL 8-27 TID ity of TAB 00:00: [place] [facility] CLONIDINE Yes [id number] take 1 po Univers 0.2 MG ORAL 8-27 qid for 1 ity of TAB 00:00: week, then [place] 00 tid for 1 Medical week, then Branch bid and prn thereafter PRAVASTATIN Yes [id number] take 1 po Univers 40 MG ORAL 8-27 qhs ity of TAB 00:00: [place] [facility] ATENOLOL Yes [id number] one tab po Univers 100 MG ORAL 8-27 daily ity of TAB 00:00: Medical Branch NORCO Yes 1 tab po Univers 7.5-325 MG 8-27 TID ity of ORAL TAB 00:00: Medical Branch AMITRIPTYLI Yes 2 tabs QHS Univers NE 50 MG 8-27 ity of ORAL TAB 00:00: Medical Branch METFORMIN Yes [id number] 1 tab PO Univers 850 MG ORAL 8-27 TID ity of TAB 00:00: Medical Branch CLONIDINE Yes [id number] take 1 po Univers 0.2 MG ORAL 8-27 qid for 1 ity of TAB 00:00: week, then [place] 00 tid for 1 Medical week, then Branch bid and prn thereafter PRAVASTATIN Yes [id number] take 1 po Univers 40 MG ORAL 8-27 qhs ity of TAB 00:00: Medical Branch ATENOLOL Yes [id number] one tab po Univers 100 MG ORAL 8-27 daily ity of TAB 00:00: Medical Branch NORCO Yes 1 tab po Univers 7.5-325 MG 8-27 TID ity of ORAL TAB 00:00: Medical Branch AMITRIPTYLI Yes 2 tabs QHS Univers NE 50 MG 8-27 ity of ORAL TAB 00:00: Medical Branch METFORMIN Yes [id number] 1 tab PO Univers 850 MG ORAL 8-27 TID ity of TAB 00:00: Medical Branch CLONIDINE Yes [id number] take 1 po Univers 0.2 MG ORAL 8-27 qid for 1 ity of TAB 00:00: week, then [place] 00 tid for 1 Medical week, then Branch bid and prn thereafter PRAVASTATIN Yes [id number] take 1 po Univers 40 MG ORAL 8-27 qhs ity of TAB 00:00: Medical Branch ATENOLOL Yes [id number] one tab po Univers 100 MG ORAL 8-27 daily ity of TAB 00:00: Medical Branch NORCO 2008-0 Yes 1 tab po Univers 7.5-325 MG 8-27 TID ity of ORAL TAB 00:00: [place] [facility] AMITRIPTYLI Yes 2 tabs QHS Univers NE 50 MG 8-27 ity of ORAL TAB 00:00: [place] [facility] METFORMIN 0 Yes [id number] 1 tab PO Univers 850 MG ORAL 8-27 TID ity of TAB 00:00: [place] 00 Medical Branch CLONIDINE 0 Yes [id number] take 1 po Univers 0.2 MG ORAL 8-27 qid for 1 ity of TAB 00:00: week, then [place] 00 tid for 1 Medical week, then Branch bid and prn thereafter PRAVASTATIN Yes [id number] take 1 po Univers 40 MG ORAL 8-27 qhs ity of TAB 00:00: [place] [facility] ATENOLOL Yes [id number] one tab po Univers 100 MG ORAL 8-27 daily ity of TAB 00:00: [place] 00 Medical Branch NORCO Yes 1 tab po Univers 7.5-325 MG 8-27 TID ity of ORAL TAB 00:00: [place] [facility] AMITRIPTYLI Yes 2 tabs QHS Univers NE 50 MG 8-27 ity of ORAL TAB 00:00: [place] 00 Medical Branch METFORMIN 0 Yes [id number] 1 tab PO Univers 850 MG ORAL 8-27 TID ity of TAB 00:00: [place] 00 Medical Branch CLONIDINE 0 Yes [id number] take 1 po Univers 0.2 MG ORAL 8-27 qid for 1 ity of TAB 00:00: week, then [place] 00 tid for 1 Medical week, then Branch bid and prn thereafter PRAVASTATIN 0 Yes [id number] take 1 po Univers 40 MG ORAL 8-27 qhs ity of TAB 00:00: [place] 00 Medical Branch ATENOLOL 2021- No [id number] one tab po Univers 100 MG ORAL 8-27 10-15 daily ity of TAB 00:00: 00:00 [place] 00 :00 Medical Branch NORCO 2021- No 1 tab po Univers 7.5-325 MG 8-27 10-15 TID ity of ORAL TAB 00:00: 00:00 [place] 00 :00 Medical Branch AMITRIPTYLI 2008-0 2022- No 2 tabs QHS Univers NE 50 MG 8-27 10-15 ity of ORAL TAB 00:00: 00:00 [place] 00 :00 Medical Branch METFORMIN 2007-2021- No [id number] 1 tab PO Univers 850 MG ORAL 8-27 10-15 TID ity of TAB 00:00: 00:00 [place] 00 :00 Medical Branch CLONIDINE 2021- No [id number] take 1 po Univers 0.2 MG ORAL 8-27 10-15 qid for 1 it y of TAB 00:00: 00:00 week, then [place] 00 :00 tid for 1 Medical week, then Branch bid and prn thereafter PRAVASTATIN 2021- No [id number] take 1 po Univers 40 MG ORAL 8-27 10-15 qhs ity of TAB 00:00: 00:00 [place] 00 :00 Medical Branch ATENOLOL 2021- No [id number] one tab po Univers 100 MG ORAL 8-27 10-15 daily ity of TAB 00:00: 00:00 [place] 00 :00 Medical Branch NORCO 2021- No 1 tab po Univers 7.5-325 MG 8-27 10-15 TID ity of ORAL TAB 00:00: 00:00 [place] 00 :00 Medical Branch AMITRIPTYLI 2021- No 2 tabs QHS Univers NE 50 MG 8-27 10-15 ity of ORAL TAB 00:00: 00:00 [place] 00 :00 Medical Branch METFORMIN 2021- No [id number] 1 tab PO Univers 850 MG ORAL 8-27 10-15 TID ity of TAB 00:00: 00:00 [place] 00 :00 Medical Branch CLONIDINE 2021- No [id number] take 1 po Univers 0.2 MG ORAL 8-27 10-15 qid for 1 it y of TAB 00:00: 00:00 week, then [place] 00 :00 tid for 1 Medical week, then Branch bid and prn thereafter PRAVASTATIN 2021- No [id number] take 1 po Univers 40 MG ORAL 8-27 10-15 qhs ity of TAB 00:00: 00:00 [place] 00 :00 Medical Branch CLONIDINE Yes [id number] 1 tab tid Univers 0.3 MG ORAL 4-30 and prn ity o f TAB 00:00: [place] 00 Medical Branch CLONIDINE 2007-0 Yes [id number] 1 tab tid Univers 0.3 MG ORAL 4-30 and prn ity o f TAB 00:00: [place] [facility] CLONIDINE 2007-0 Yes [id number] 1 tab tid Univers 0.3 MG ORAL 4-30 and prn ity o f TAB 00:00: [place] [facility] CLONIDINE 2007-0 Yes [id number] 1 tab tid Univers 0.3 MG ORAL 4-30 and prn ity o f TAB 00:00: [facility] CLONIDINE 2007-0 Yes [id number] 1 tab tid Univers 0.3 MG ORAL 4-30 and prn ity o f TAB 00:00: [facility] CLONIDINE 2007-0 Yes [id number] 1 tab tid Univers 0.3 MG ORAL 4-30 and prn ity o f TAB 00:00: [facility] CLONIDINE 2007-0 2021- No [id number] 1 tab tid Univers 0.3 MG ORAL 4-30 10-15 and prn ity of TAB 00:00: 00:00 [place] 00 :00 [facility] CLONIDINE 2007-0 2021- No [id number] 1 tab tid Univers 0.3 MG ORAL 4-30 10-15 and prn ity of TAB 00:00: 00:00 [place] 00 :00 [facility] ASPIRIN 325 2006- Yes [id number] 1 tab U nivers MG ORAL TAB 0-04 daily ity of 00:00: [facility] ASPIRIN 325 2006- Yes [id number] 1 tab U nivers MG ORAL TAB 0-04 daily ity of 00:00: [facility] ASPIRIN 325 2006- Yes [id number] 1 tab U nivers MG ORAL TAB 0-04 daily ity of 00:00: [facility] ASPIRIN 325 2006- Yes [id number] 1 tab U nivers MG ORAL TAB 0-04 daily ity of 00:00: [facility] ASPIRIN 325 2006- Yes [id number] 1 tab U nivers MG ORAL TAB 0-04 daily ity of 00:00: [facility] ASPIRIN 325 2006- Yes [id number] 1 tab U nivers MG ORAL TAB 0-04 daily ity of 00:00: [facility] ASPIRIN 325 2006- 2022- No [id number] 1 tab Univers MG ORAL TAB 0-04 10-15 daily ity of 00:00: 00:00 [place] 00 :00 [facility] ASPIRIN 325 2007- 2022- No [id number] 1 tab Univers MG ORAL TAB 0-04 10-15 daily ity of 00:00: 00:00 [place] 00 :00 [facility] Immunizations Ordered Filled Immunization Date Status Comments Sour e Immunization Name Name Influenza Virus 2007-06-20 Completed Universit y of Vaccine 00:00:00 [facility] Influenza Virus 2007-06-20 Completed Universit y of Vaccine 00:00:00 [facility] Influenza Virus 2007-06-20 Completed Universit y of Vaccine 00:00:00 [facility] Influenza Virus 2007-06-20 Completed Universit y of Vaccine 00:00:00 [facility] Influenza Virus 2007-06-20 Completed Universit y of Vaccine 00:00:00 [facility] Influenza Virus 2007-06-20 Completed Universit y of Vaccine 00:00:00 [facility] Influenza Virus 2007-06-20 Completed Universit y of Vaccine 00:00:00 [facility] Influenza Virus 2007-06-20 Completed Universit y of Vaccine 00:00:00 [facility] Influenza Virus 2007-06-20 Completed Universit y of Vaccine 00:00:00 [facility] Influenza Virus 2007-06-20 Completed Universit y of Vaccine 00:00:00 [facility] Influenza Virus 2007-06-20 Completed Universit y of Vaccine 00:00:00 [facility] Influenza Virus 2007-06-20 Completed Universit y of Vaccine 00:00:00 [facility] Influenza Virus 2006-07-26 Completed Universit y of Vaccine 00:00:00 [facility] Influenza Virus 2006-07-26 Completed Universit y of Vaccine 00:00:00 [facility] Influenza Virus 2006-07-26 Completed Universit y of Vaccine 00:00:00 [facility] Influenza Virus 2006-07-26 Completed Universit y of Vaccine 00:00:00 [facility] Influenza Virus 2006-07-26 Completed Universit y of Vaccine 00:00:00 [facility] Influenza Virus 2006-07-26 Completed Universit y of Vaccine 00:00:00 [facility] Influenza Virus 2006-07-26 Completed Universit y of Vaccine 00:00:00 [facility] Influenza Virus 2006-07-26 Completed Universit y of Vaccine 00:00:00 [facility] Influenza Virus 2006-07-26 Completed Universit y of Vaccine 00:00:00 [facility] Influenza Virus 2006-07-26 Completed Universit y of Vaccine 00:00:00 [facility] Influenza Virus 2006-07-26 Completed Universit y of Vaccine 00:00:00 [facility] Influenza Virus 2006-07-26 Completed Universit y of Vaccine 00:00:00 [facility] Vital Signs Vital Name Observation Time Observation Value Comments Source WEIGHT 2020-03-24 76.658 kg 00:00:00 Systolic blood 2022-06-25 150 mm[Hg] University of pressure 16:28:00 [facility] Diastolic blood 2022-06-25 92 mm[Hg] University o f pressure 16:28:00 [facility] Heart rate 2022-06-25 102 /min University of 16:28:00 [facility] Body temperature 2022-06-25 36.5 Sindhu University of 16:28:00 [facility] Respiratory rate 2022-06-25 20 /min University of 16:28:00 [facility] Oxygen saturation 2022-06-25 91 /min [place] of in Arterial blood 16:28:00 [facility] by Pulse oximetry [place] Body weight 2022-06-21 71.215 kg University of 15:26:00 [facility] BMI 2022-06-21 26.13 kg/m2 University of 15:26:00 [facility] Body height 2022-06-20 165.1 cm University of 18:31:00 [facility] Systolic blood 2022-06-24 184 mm[Hg] University of pressure 12:28:00 beena[facility] [place] bedside Diastolic blood 2022-06-24 105 mm[Hg] dr Hernandez o f pressure 12:28:00 beena[facility] [place] bedside Heart rate 2022-06-24 79 /min University of 12:28:00 [facility] Body temperature 2022-06-24 36.5 Sindhu University of 12:28:00 [facility] Respiratory rate 2022-06-24 20 /min University of 12:28:00 [facility] Oxygen saturation 2022-06-24 95 /min University of in Arterial blood 12:28:00 [place] [facility] by Pulse oximetry Branch Body weight 2022-06-21 71.215 kg University of 15:26:00 [facility] BMI 2022-06-21 26.13 kg/m2 [facility] 15:26:00 [facility] Body height 2022-06-20 165.1 cm [facility] 18:31:00 [facility] Systolic blood 2021-05-11 156 mm[Hg] University of pressure 01:25:00 [facility] Diastolic blood 2021-05-11 77 mm[Hg] [place] o f pressure 01:25:00 [facility] Heart rate 2021-05-11 65 /min [facility] 01:25:00 [facility] Body temperature 2021-05-11 36.94 Sindhu [facility] 01:25:00 [facility] Respiratory rate 2021-05-11 18 /min [facility] :25:00 [facility] Oxygen saturation 2021-05-11 96 /min [facility] Arterial blood 01:25:00 [facility] by Pulse oximetry [place] Body weight 2021-05-10 68.04 kg [facility] 12:50:00 [facility] WEIGHT 2020-03-24 76.658 kg 00:00:00 Procedures Procedure Date / Time Performing Clinician Source Performed EXTERNAL PROVIDER RECORDS 2022-07-07 Doctor Unassigned, Uni versity of 05:01:00 [place] [facility] POCT GLUCOSE (AUTOMATED) 2022-06-25 [facility] ersity of 17:11:00 [facility] POCT GLUCOSE (AUTOMATED) 2022-06-25 [facility] ersity of 17:11:00 [facility] POCT GLUCOSE (AUTOMATED) 2022-06-25 [facility] ersity of 14:07:00 [facility] POCT GLUCOSE (AUTOMATED) 2022-06-25 [facility] ersity of 14:07:00 [facility] MAGNESIUM 2022-06-25 Michelle Pelayo [place] of 10:22:00 [facility] BASIC METABOLIC PANEL (NA, K, 2022-06-25 Michelle Pelayo iversity of CL, CO2, GLUCOSE, BUN, 10:22:00 [facility] ical CREATININE, CA) Branch CBC WITHOUT DIFF 2022-06-25 Michelle Pelayo [place] of 10:22:00 [facility] MAGNESIUM 2022-06-25 Michelle Pelayo University of 10:22:00 [facility] BASIC METABOLIC PANEL (NA, K, 2022-06-25 Michelle Pelayo Un iversity of CL, CO2, GLUCOSE, BUN, 10:22:00 [place] [facility] CREATININE, CA) Branch CBC WITHOUT DIFF 2022-06-25 [facility] 10:22:00 [facility] POCT GLUCOSE (AUTOMATED) 2022-06-25 [facility] ersity of 01:29:00 [facility] POCT GLUCOSE (AUTOMATED) 2022-06-25 [facility] ersity of 01:29:00 [facility] POCT GLUCOSE (AUTOMATED) 2022-06-24 [facility] ersity of 22:20:00 [facility] POCT GLUCOSE (AUTOMATED) 2022-06-24 [facility] ersity of 22:20:00 [facility] POCT GLUCOSE (AUTOMATED) 2022-06-24 [facility] ersity of 18:06:00 [facility] POCT GLUCOSE (AUTOMATED) 2022-06-24 [facility] ersity of 18:06:00 [facility] CBC WITHOUT DIFF 2022-06-24 [facility] 17:27:00 [facility] CBC WITHOUT DIFF 2022-06-24 [facility]ita [facility] of 17:27:00 [facility] MAGNESIUM 2022-06-24 [facility]ita [facility] of 17:26:00 [facility] BASIC METABOLIC PANEL (NA, K, 2022-06-24 Michelle Pelayo Un iversity of CL, CO2, GLUCOSE, BUN, 17:26:00 [place] [facility] CREATININE, CA) Branch MAGNESIUM 2022-06-24 [facility] 17:26:00 [facility] BASIC METABOLIC PANEL (NA, K, 2022-06-24 Michelle Pelayo Un iversity of CL, CO2, GLUCOSE, BUN, 17:26:00 [place] [facility] CREATININE, CA) Branch ELECTROPHYSIOLOGY PROCEDURE 2022-06-24 [facility] 13:36[facility]ED[facility] 2022-06-[address] [facility] [place] ersity of 13:36:26 [facility] PO[facility] GLUCOSE (AUTOMATED) 2022-06-24 [facility] ersity of 13:01:00 [facility] POCT GLUCOSE (AUTOMATED) 2022-06-24 [facility] ersity of 13:01:00 [facility] POCT GLUCOSE (AUTOMATED) 2022-06-24 [place] Uni versity of 03:58:00 [facility] POCT GLUCOSE (AUTOMATED) 2022-06-24 [place], [place] Uni versity of 03:58:00 [facility] URINALYSIS 2022-06-23 Gita [facility] of 22:59:00 [facility] URINALYSIS 2022-06-23 Gita [facility] of 22:59:00 [facility] POCT GLUCOSE (AUTOMATED) 2022-06-23 [place], [place] Uni versity of 22:38:00 [facility] POCT GLUCOSE (AUTOMATED) 2022-06-23 [place], [place] Uni versity of 22:38:00 [facility] POCT GLUCOSE (AUTOMATED) 2022-06-23 [place], [place] Uni versity of 17:07:00 [facility] POCT GLUCOSE (AUTOMATED) 2022-06-23 [place], [place] Uni versity of 17:07:00 [facility] POCT GLUCOSE (AUTOMATED) 2022-06-23 [place], [place] Uni versity of 12:31:00 [facility] POCT GLUCOSE (AUTOMATED) 2022-06-23 [place], [place] Uni versity of 12:31:00 [facility] MAGNESIUM 2022-06-23 Michelle Pelayo [place] of 09:22:00 [facility] BASIC METABOLIC PANEL (NA, K, 2022-06-23 Michelle Pelayo iversity of CL, CO2, GLUCOSE, BUN, 09:22:00 [facility] ical CREATININE, CA) Branch CBC WITHOUT DIFF 2022-06-23 Michelle Pelayo [place] of 09:22:00 [facility] MAGNESIUM 2022-06-23 [facility] of 09:22:00 [facility] BASIC METABOLIC PANEL (NA, K, 2022-06-23 [facility] iversity of CL, CO2, GLUCOSE, BUN, 09:22:00 [facility] ical CREATININE, CA) Branch CBC WITHOUT DIFF 2022-06-23 [facility] of 09:22:00 [facility] HB ECG ROUTINE & RHYTHM STRIP 2022-06-23 Wanda [facility] of 04:21:59 [facility] HB ECG ROUTINE & RHYTHM STRIP 2022-06-23 [facility] of 04:21:59 [facility] POCT GLUCOSE (AUTOMATED) 2022-06-23 [place] Uni versity of 02:30:00 [facility] POCT GLUCOSE (AUTOMATED) 2022-06-23 [place] Uni versity of 02:30:00 [facility] PHOSPHORUS 2022-06-22 [facility] 22:43:00 [facility] PHOSPHORUS 2022-06-22 [facility] of 22:43:00 [facility] METANEPHRINES, PLASMA 2022-06-22 [facility] of 22:42:00 [facility] POCT GLUCOSE (AUTOMATED) 2022-06-22 [place], [place] Uni versity of 21:59:00 [facility] POCT GLUCOSE (AUTOMATED) 2022-06-22 [place], [place] Uni versity of 21:59:00 [facility] POCT GLUCOSE (AUTOMATED) 2022-06-22 [place], [place] Uni versity of 16:52:00 [facility] POCT GLUCOSE (AUTOMATED) 2022-06-22 [place], [place] Uni versity of 16:52:00 [facility] POCT GLUCOSE (AUTOMATED) 2022-06-22 [place], [place] Uni versity of 13:13:00 [facility] POCT GLUCOSE (AUTOMATED) 2022-06-22 [place], [place] Uni versity of 13:13:00 [facility] MAGNESIUM 2022-06-22 [facility] of 10:07:00 [facility] FERRITIN SERUM 2022-06-22 Patricia [facility] of 10:07:00 [facility] VITAMIN B12, LEVEL 2022-06-22 [facility] of 10:07:00 [facility] BASIC METABOLIC PANEL (NA, K, 2022-06-22 Bin Gomez Un iversity of CL, CO2, GLUCOSE, BUN, 10:07:00 [place] [facility] CREATININE, CA) Branch IRON PANEL 2022-06-22 Patricia [facility] of 10:07:00 [facility] CBC WITH DIFF 2022-06-22 [facility] of 10:07:00 [facility] MAGNESIUM 2022-06-22 [facility] of 10:07:00 [facility] FERRITIN SERUM 2022-06-22 [facility] of 10:07:00 [facility] VITAMIN B12, LEVEL 2022-06-22 [facility] of 10:07:00 [facility] BASIC METABOLIC PANEL (NA, K, 2022-06-22 Bin Gomez Un iversity of CL, CO2, GLUCOSE, BUN, 10:07:00 [place] [facility] CREATININE, CA) Branch IRON PANEL 2022-06-22 [facility] of 10:07:00 [facility] CBC WITH DIFF 2022-06-22 [facility] of 10:07:00 [facility] POCT GLUCOSE (AUTOMATED) 2022-06-22 Ca Meléndez Uni versity of 00:54:00 [facility] POCT GLUCOSE (AUTOMATED) 2022-06-22 Ca Meléndez Uni versity of 00:54:00 [facility] POCT GLUCOSE (AUTOMATED) 2022-06-21 Srinath Cohen Univers ity of 21:48:00 [facility] POCT GLUCOSE (AUTOMATED) 2022-06-21 Srinath Cohen ity of 21:48:00 [facility] HB ECG ROUTINE & RHYTHM STRIP 2022-06-21 Bin Gomez Un iversity of 19:13:25 [facility] HB ECG ROUTINE & RHYTHM STRIP 2022-06-21 Bin Gomez Un iversity of 19:13:25 [facility] TRANSTHORACIC ECHO (TTE) 2022-06-21 Patricia Bin [facility] ity of COMPLETE W/ CONTRAST 16:58:45 [facility] TRANSTHORACIC ECHO (TTE) 2022-06-21 Bin Gomez [facility] ity of COMPLETE W/ CONTRAST 16:58:45 [facility] POCT GLUCOSE (AUTOMATED) 2022-06-21 Srinath Cohen ity of 16:35:00 [facility] POCT GLUCOSE (AUTOMATED) 2022-06-21 Srinath Cohen [facility] ity of 16:35:00 [facility] THYROID STIMULATING HORMONE 2022-06-[address] [facility] [place] [place] ersity of 12:08:00 [facility] COMP. METABOLIC PANEL ([id number]) 2022-06-21 Anastasiya Tapia [place] of 12:08:00 [facility] CBC WITH DIFF 2022-06-21 Anastasiya Tapia [place] of 12:08:00 [facility] GLYCOSYLATED HEMOGLOBIN (A1C) 2022-06-21 Bin Gomez Un iversity of 12:08:00 [facility] THYROID STIMULATING HORMONE 2022-06-[address] [facility] [place] [place] ersity of 12:08:00 [facility] COMP. METABOLIC PANEL ([id number]) 2022-06-21 Anastasiya Tapia [place] of 12:08:00 [facility] CBC WITH DIFF 2022-06-21 Anastasiya Tapia [place] of 12:08:00 [facility] GLYCOSYLATED HEMOGLOBIN (A1C) 2022-06-21 Bin Gomez iversity of 12:08:00 [facility] COVID-19 (ID NOW RAPID 2022-06-[address] [facility] sity of TESTING) 07:07:00 [facility] LAB ONLY COVID INTERPRETATION 2022-06-21 Anastasiya Tapia [place] of 07:07:00 [facility] COVID-19 (ID NOW RAPID 2022-06-[address] [facility] sity of TESTING) 07:07:00 [facility] LAB ONLY COVID INTERPRETATION 2022-06-21 Anastasiya Tapia [place] of 07:07:00 [facility] LACTIC ACID WHOLE BLOOD 2022-06-21 Srinath Cohen [facility] ty of 04:05:00 [facility] LACTIC ACID WHOLE BLOOD 2022-06-21 Srinath Cohen Universi ty of 04:05:[address] [facility] [address] HEAD WO CONTRAST 2022-06-21 Singer [facility] o f 00:42:[address] [facility] [address] HEAD WO CONTRAST 2022-06-21 Singer [facility] o f 00:42:20 [facility] ELECTROENCEPHALOGRAM 2022-06-21 [facility] of 00:00:00 [facility] ELECTROENCEPHALOGRAM 2022-06-21 [facility] of 00:00:00 [facility] LACTIC ACID WHOLE BLOOD 2022-06-20 Singer [facility] ty of 23:59:00 [facility] LACTIC ACID WHOLE BLOOD 2022-06-20 Singer [facility] ty of 23:59:[address] [facility] [address] ANGIOGRAM ABDOMEN/PELVIS 2022-06-20 Singer [facility] ersity of 20:21:[address] [facility] [address] ANGIOGRAM ABDOMEN/PELVIS 2022-06-20 Singer [facility] ersity of 20:21:56 [facility] URINALYSIS 2022-06-20 Singer [facility] of 19:04:00 [facility] URINE CULTURE 2022-06-20 Singer [facility] of 19:04:00 [facility] URINALYSIS 2022-06-20 Singer [facility] of 19:04:00 [facility] URINE CULTURE 2022-06-20 Singer [facility] of 19:04:00 [facility] XR CHEST 1 VW 2022-06-20 Singer [facility] of 18:50:20 [facility] XR CHEST 1 VW 2022-06-20 Singer [facility] of 18:50:20 [facility] BLOOD CULTURE SCREEN 2022-06-20 Singer [facility] of 18:46:00 [facility] BLOOD CULTURE SCREEN 2022-06-20 Singer [facility] of 18:46:00 [facility] BLOOD CULTURE SCREEN 2022-06-20 Singer [facility] of 18:39:00 [facility] TROPONIN I 2022-06-20 Singer [facility] of 18:39:00 [facility] COMP. METABOLIC PANEL ([id number]) 2022-06-20 Srinath Cohen iversity of 18:39:00 [facility] CBC WITH DIFF 2022-06-20 Singer [facility] of 18:39:00 [facility] BLOOD CULTURE SCREEN 2022-06-20 [facility] of 18:39:00 [facility] TROPONIN I 2022-06-20 Cohen, [facility] of 18:39:00 [facility] COMP. METABOLIC PANEL ([id number]) 2022-06-20 Srinath Cohen iversity of 18:39:00 [facility] CBC WITH DIFF 2022-06-20 Cohen, [facility] of 18:39:00 [facility] EKG-12 LEAD 2022-06-20 Cohen, [facility] of 18:38:36 [facility] EKG-12 LEAD 2022-06-20 Coehn, [facility] of 18:38:36 [facility] LACTIC ACID WHOLE BLOOD 2022-06-20 Singer [facility] ty of 18:38:00 [facility] LACTIC ACID WHOLE BLOOD 2022-06-20 Singer [facility] Univers[facility] ty of 18:38:00 [facility] EMERGENCY DEPARTMENT 2022-06-20 Doctor Unassigned, Universi ty of DOCUMENTS 05:01:00 [facility] HOSPITAL ADMISSION 2022-06-20 Doctor Unassigned, University of 05:01:00 [facility] ASSIGNMENT OF BENEFITS 2021-05-07 Doctor Unassigned, [facility] sity of 21:31:03 [facility] Plan of Care Planned Activity Planned Date Details Comments Source Future Scheduled 2022-05-12 INFLUENZA VACCINE (#1) [facility] 00:00:00 [code = INFLUENZA Medical Ce nter VACCINE (#1)] Future Scheduled 2022-05-12 INFLUENZA VACCINE (#1) [facility] 00:00:00 [code = INFLUENZA Medical Ce nter VACCINE (#1)] Future Scheduled 2021-09-[address] [facility] 00:00:00 (12+) [code = Medical Center DEPRESSION SCREENING (12+)] Future Scheduled 2021-09-11 FALLS RISK SCREENING [facility] 00:00:00 [code = FALLS RISK Medical C enter SCREENING] Future Scheduled 2021-09-[address] [...] 00:00:00 measurement Medical Center (procedure) [code = 65310616] Future Scheduled 2020-09-[address] [facility] 00:00:00 [facility] Center (procedure) [code = 04741282] Future Scheduled 2020-09-[address] [facility] 00:00:00 [facility] (procedure) [code = 99005622] Future Scheduled 2020-09-[address] [facility] 00:00:00 [facility] (procedure) [code = 09580578] Future Scheduled 2020-09-[address] [...] 00:00:00 (1 of 1 - Medical Center [id number] [id number]) [code = PNEUMOCOCCAL 65+ YRS (1 of 1 - [id number] PCV13)] Future Scheduled 2002 PNEUMOCOCCAL 65+ YRS [facility] 00:00:00 (1 of 1 - Medical Center [id number] PCV13) [code = PNEUMOCOCCAL 65+ YRS (1 of 1 - [id number] PCV13)] Future Scheduled 1999-11-11 MEDICARE ANNUAL [facility] [...] 00:00:00 protein (procedure) Medical Center [code = 265986266] Future Scheduled [address] EYE EXAM [facility] 00:00:00 [code = DIABETIC EYE Medical Center EXAM] Future Scheduled 1947 [address]rine screening for [facility] 00:00:00 protein (procedure) Medical Center [code = 815427291] Future Scheduled [address] EYE EXAM [facility] 00:00:00 [code = DIABETIC EYE Medical Center EXAM] Future Scheduled 1947 Urine screening for [facility] Test 00:00:00 protein (procedure) Medical Center [code = 349436669] Future Scheduled [address] EYE EXAM [facility] 00:00:00 [code = DIABETIC EYE Medical Center EXAM] Future Scheduled 1947 Urine screening for [facility] Test 00:00:00 protein (procedure) Medical Center [code = 935785396] Future Scheduled 1943 PNEUMOCOCCAL 65+ YRS [facility] 00:00:00 (1 - PCV) [code = Medical Ce nter PNEUMOCOCCAL 65+ YRS (1 - PCV)] Future Scheduled 1943 PNEUMOCOCCAL 65+ YRS [facility] 00:00:00 (1 - PCV) [code = Medical Ce nter PNEUMOCOCCAL 65+ YRS (1 - PCV)] Future Scheduled 1937 COVID-19 VACCINE (#1) [facility] 00:00:00 [code = COVID-[address] VACCINE (#1)] Future Scheduled 1937 COVID-19 VACCINE (#1) [facility] 00:00:00 [code = COVID-[address] VACCINE (#1)] Future Scheduled 1937 DXA SCAN [code = DXA [facility] 00:00:00 SCAN] Medical Center Future Scheduled 1937 DXA SCAN [code = DXA [facility] 00:00:00 SCAN] [facility] Encounters Start End Encounter Admission Attending Care Care Encounter Source Date/Time Date/Time Type Type Clinicians Facility Department ID 2020-03-24 [facility] [id number] [address] [place] [address] 23:52:00 [facility] 2022-08-03 2022-08-03 Outpatient R SMITH BETANCOURT [facility] [id number] Univers 00:00:00 00:00:00 SMITH BETANCOURT [facility] 2022-07-14 2022-07-14 Outpatient R SMITH BETANCOURT [facility] [id number] Univers 16:30:12 23:59:00 SMITH BETANCOURT [facility] 2022-07-14 2022-07-14 Hospital VIKTORIA Betancourt [id number] Univers 16:30:12 23:59:00 Encounter Maria Elena DOS SANTOS [id number] ity [facility] [id number] Shawn as [id number] [place] [id number] Branch 2022-07-14 2022-07-14 Telephone VIKTORIA Betancourt [id number] Univers 00:00:00 00:00:00 Cho[place] SOY 350.1.13.10 ity of [facility] 4.2.7.2.686 Shawn as [phone] [facility] [address] 2022-07-07 2022-07-07 Orders Doctor NEWMAN 1.2.840.114 [id number] Univers 00:00:00 00:00:00 Only Unassigned, RAYA 350.1.13.10 ity of [place] [facility] 4.2.7.2.686 Shawn as [phone] [facility] [address] 2022-06-27 2022-06-27 Transition ROSE Maicas 1.2.840.114 [id number] Univers 00:00:00 00:00:00 of Care Jamil Reeder SHEPHERD 350.1.13.10 ity of [place].2.[place] [id number] [facility] [address] 2022-06-20 2022-06-25 Inpatient X ALVERTO [facility] [id number] Univers 13:17:00 13:00:00 ACACIA ity of [facility] 2022-06-20 2022-06-25 Hospital Srinath Cohen 1.2.840.1 14 [id number] Univers 13:17:00 13:00:00 Encounter Acacia Del Toro 350.1.13. 10 ity of [facility] 4.2.7.2.686 [place] [phone] [facility] [address] 2022-06-24 2022-06-24 Surgery VIKTORIA Betancourt 1.2.840.114 [id number] Univers 08:35:00 09:20:00 Maria Elena RAYA 350.1.13.10 ity of [facility] 4.2.7.2.686 Shawn as [id number] [facility] [address] 2021-05-10 2021-05-10 Nurse Therapy, Kevin Byrd [facility] 1.2. 840.114 [id number] Univers 19:27:33 20:27:33 Visit Unknown, Attending Health 350.1.13.10 ity of [place] 4.2.7.2.686 Shawn as Terrell?Blea [phone] [place] [address] Medical Office Building 2021-05-10 2021-05-10 Outpatient R UNKNOWN, [facility] [id number] Univers 19:30:00 19:30:00 ATTENDING ity of [facility] 2021-05-09 2021-05-09 Telephone TRENT Tariq 1.2.098.091 [id number] Univers 00:00:00 00:00:00 Gessica P RAYA 350.1.13.10 ity of [address]686 Shawn as [phone] [address] 2021-05-07 2021-05-07 Laboratory Only, Ang Db Test [facility] 1.2.8 40.114 [id number] Univers 17:11:44 17:31:44 Only Pavan Jud [facility] 350.1.13.[address]2.7.2.686 Shawn as Terrell?Blea [phone] [address] Medical Office Building 2021-05-07 2021-05-07 Outpatient R PAVAN [facility] [id number] Univers 17:15:00 17:15:00 [facility] 2021-05-07 2021-05-07 Outpatient R PAVAN [facility] [id number] Univers 16:20:00 16:20:00 [facility] 2021-05-07 2021-05-07 Orders Doctor TRENT 1.2.840.114 [id number] Univers 00:00:00 00:00:00 Only Unassigned, RAYA 350.1.13.10 ity of [place] [address].2.7.2.686 Shawn as [id number] [address] Results Test Description Test Time Test Comments Results Result Comments Source METANEPHRINES, PLASMA 2022-06-27 20:47:27 Test Item Value Reference Range Interpretation Comme nts METANEPH (test code = <0.10 0.00-0.49 46656-5) NORMETNEPH (test code = 0.83 nmol/L 0.00-0.89 77780-4) METAPF INT (test code = See Note INTE RPRETIVE INFORMATION: 30648-5) Metanephrines, Plasma (Free) This test is useful [...] and i ts performance characteristics determined by Notei es. It has not been cleared or approved by the [place] Food and Champ g Administration. This test was p erformed in a CLIA certified labor atory and is intended for cl inical purposes.Perfor med By: [employer] [place], [place] [address]Laboratory Director: Juan Espinosa MD, PhD [facility] GLUCOSE (AUTOMATED)2022-06-25 17:12:53 Test Item Value Reference Range Interpretation Comments POCT GLU (test code = 8341495899) 200 mg/dL 70-110 H Lab Interpretation (test code = Abnormal 23371-8) [facility] GLUCOSE (AUTOMATED)2022-06-25 17:12:53 Test Item Value Reference Range Interpretation Comments POCT GLU (test code = 3133700914) 200 mg/dL 70-110 H Lab Interpretation (test code = Abnormal 08686-6) [facility] GLUCOSE (AUTOMATED)2022-06-25 14:20:12 Test Item Value Reference Range Interpretation Comments POCT GLU (test code = 4832768681) 171 mg/dL 70-110 H Lab Interpretation (test code = Abnormal 45580-7) [facility] GLUCOSE (AUTOMATED)2022-06-25 14:20:12 Test Item Value Reference Range Interpretation Comments POCT GLU (test code = 0275975190) 171 mg/dL 70-110 H Lab Interpretation (test code = Abnormal 16064-1) [facility] GLUCOSE (AUTOMATED)2022-06-25 01:30:55 Test Item Value Reference Range Interpretation Comments POCT GLU (test code = 4785167248) 207 mg/dL 70-110 H Lab Interpretation (test code = Abnormal 85654-8) [facility] GLUCOSE (AUTOMATED)2022-06-25 01:30:55 Test Item Value Reference Range Interpretation Comments POCT GLU (test code = 2559384758) 207 mg/dL 70-110 H Lab Interpretation (test code = Abnormal 46453-4) [facility] GLUCOSE (AUTOMATED)2022-06-24 22:26:40 Test Item Value Reference Range Interpretation Comments POCT GLU (test code = 6180268965) 195 mg/dL 70-110 H Lab Interpretation (test code = Abnormal 05163-2) [facility] GLUCOSE (AUTOMATED)2022-06-24 22:26:40 Test Item Value Reference Range Interpretation Comments POCT GLU (test code = 2477215375) 195 mg/dL 70-110 H Lab Interpretation (test code = Abnormal 97910-7) [facility] GLUCOSE (AUTOMATED)2022-06-24 18:07:03 Test Item Value Reference Range Interpretation Comments POCT GLU (test code = 9828677648) 376 mg/dL 70-110 H Lab Interpretation (test code = Abnormal 11433-0) [facility] GLUCOSE (AUTOMATED)2022-06-24 18:07:03 Test Item Value Reference Range Interpretation Comments POCT GLU (test code = 3503125898) 376 mg/dL 70-110 H Lab Interpretation (test code = Abnormal 85588-4) [facility] 17:45:35 Test Item Value Reference Range Interpretation Comments MAGNESIUM (test code = 5408187991) 1.9 mg/dL 1.7-2.4 Lab Interpretation (test code = Normal 56063-8) [facility] (NA, K, CL, CO2, GLUCOSE, BUN, CREATININE, CA)2022-06-24 17:45:35 Test Item Value Reference Range Interpretation Comments NA (test code = 137 mmol/L 135-145 9765164388) K (test code = 3.3 mmol/L 3.5-5 L 8514880803) CL (test code = 101 mmol/L 98-108 8544093063) CO2 TOTAL (test code = 25 mmol/L 23-31 4193578960) AGAP (test code = 2-16 7196326182) BUN (test code = 17 mg/dL 7- 2694898723) GLUCOSE (test code = 264 mg/dL 70-110 H 1565621472) CREATININE (test code = 0.94 mg/dL 0.5-1.04 5275594035) CALCIUM (test code = 9.1 mg/dL 8.6-10.6 1800764704) eGFR (test code = mL/min/1.73m2 9619508201) WINDY (test code = WINDY) Association of [...] tests). Lab Interpretation Abnormal (test code = 63535-1) [facility]-14 17:45:35 Test Item Value Reference Range Interpretation Comments MAGNESIUM (test code = 9372785352) 1.9 mg/dL 1.7-2.4 Lab Interpretation (test code = Normal 78641-8) [facility]IC [facility] (NA, K, CL, CO2, GLUCOSE, BUN, CREATININE, CA)2022-06-24 17:45:35 Test Item Value Reference Range Interpretation Comments NA (test code = 137 mmol/L 135-145 2016366627) K (test code = 3.3 mmol/L 3.5-5 L 4762426692) CL (test code = 101 mmol/L 98-108 2991984808) CO2 TOTAL (test code = 25 mmol/L 23-31 7353835116) AGAP (test code = 2-16 2043368404) BUN (test code = 17 mg/dL 7-23 2507261223) GLUCOSE (test code = 264 mg/dL 70-110 H 5960360489) CREATININE (test code = 0.94 mg/dL 0.5-1.04 4551463688) CALCIUM (test code = 9.1 mg/dL 8.6-10.6 1426131853) eGFR (test code = mL/min/1.73m2 3404257599) WINDY (test code = WINDY) Association of [...] tests). Lab Interpretation Abnormal (test code = 82925-0) [facility] WITHOUT [id number] 17:37:52 Test Item Value Reference Range Interpretation Comments WBC (test code = 6690-2) See_Comment [A utomated message] The system [employer] generated this result transmit timur reference range : 4.30 - 11.10 10*3/?L. The reference range was not used to interpret this result as normal/abnormal . RBC (test code = 789-8) See_Comment [Au tomated message] The system [employer] generated this result transmit timur reference range [...] 777-3) See_Comment [Au tomated message] The system [employer] generated this result transmit timur reference range : 166 - 358 10*3/?L. The reference range was not used to interpret this result as normal/abnormal . MPV (test code = 9.0 fL 9.5-12.9 L 69115-1) RDW-CV (test code = 16.6 % 12-15.5 H 788-0) RDW-SD (test code = 44.0 fL 39-49.9 73768-3) NRBC x10^3 (test code = See_Comment [Au tomated message] 5198639531) The system [employer] generated this result transmit timur reference range : 10*3/?L. The reference range was not used to interpret this result as normal/abnormal . NRBC/100 WBC (test code See_Comment [Au tomated message] = 6850693816) The system [employer] generated this result transmit timur reference range : 0.0 - 10.0 /100 WBC s. The reference r fernando was not used to interpret this result as normal/abnormal . IPF % (test code = 5357815170) Lab Interpretation (test Abnormal code = 46956-6) [facility] WITHOUT [id number] 17:37:52 Test Item Value Reference Range Interpretation Comments WBC (test code = 6690-2) See_Comment [A utomated message] The system [employer] generated this result transmit timur reference range : 4.30 - 11.10 10*3/?L. The reference range was not used to interpret this result as normal/abnormal . RBC (test code = 789-8) See_Comment [Au tomated message] The system [employer] generated this result transmit timur reference range [...] 777-3) See_Comment [Au tomated message] The system [employer] generated this result transmit timur reference range : 166 - 358 10*3/?L. The reference range was not used to interpret this result as normal/abnormal . MPV (test code = 9.0 fL 9.5-12.9 L 65660-3) RDW-CV (test code = 16.6 % 12-15.5 H 788-0) RDW-SD (test code = 44.0 fL 39-49.9 80091-5) NRBC x10^3 (test code = See_Comment [Au tomated message] 9143001195) The system whic h generated this result transmit timur reference range : 10*3/?L. The reference range was not used to interpret this result as normal/abnormal . NRBC/100 WBC (test code See_Comment [Au tomated message] = 1404419603) The system i generated this result transmit timur reference range : 0.0 - 10.0 /100 WBC s. The reference r fernando was not used to interpret this result as normal/abnormal . IPF % (test code = 2912261638) Lab Interpretation (test Abnormal code = 72352-9) [facility] GLUCOSE (AUTOMATED)2022-06-24 13:05:03 Test Item Value Reference Range Interpretation Comments POCT GLU (test code = 3661601452) 175 mg/dL 70-110 H Lab Interpretation (test code = Abnormal 51648-9) [facility] GLUCOSE (AUTOMATED)2022-06-24 13:05:03 Test Item Value Reference Range Interpretation Comments POCT GLU (test code = 4659878497) 175 mg/dL 70-110 H Lab Interpretation (test code = Abnormal 03232-0) [facility] GLUCOSE (AUTOMATED)2022-06-24 03:59:23 Test Item Value Reference Range Interpretation Comments POCT GLU (test code = 6580509629) 200 mg/dL 70-110 H Lab Interpretation (test code = Abnormal 33752-4) [facility] GLUCOSE (AUTOMATED)2022-06-24 03:59:23 Test Item Value Reference Range Interpretation Comments POCT GLU (test code = 3044267822) 200 mg/dL 70-110 H Lab Interpretation (test code = Abnormal 38738-6) [facility] GLUCOSE (AUTOMATED)2022-06-23 22:39:44 Test Item Value Reference Range Interpretation Comments POCT GLU (test code = 0093725687) 210 mg/dL 70-110 H Lab Interpretation (test code = Abnormal 17762-6) [facility] GLUCOSE (AUTOMATED)2022-06-23 22:39:44 Test Item Value Reference Range Interpretation Comments POCT GLU (test code = 1396458055) 210 mg/dL 70-110 H Lab Interpretation (test code = Abnormal 65243-8) [facility] GLUCOSE (AUTOMATED)2022-06-23 17:10:04 Test Item Value Reference Range Interpretation Comments POCT GLU (test code = 4479870649) 189 mg/dL 70-110 H Lab Interpretation (test code = Abnormal 18710-1) [facility] GLUCOSE (AUTOMATED)2022-06-23 17:10:04 Test Item Value Reference Range Interpretation Comments POCT GLU (test code = 7259048058) 189 mg/dL 70-110 H Lab Interpretation (test code = Abnormal 30038-8) [facility] GLUCOSE (AUTOMATED)2022-06-23 12:33:02 Test Item Value Reference Range Interpretation Comments POCT GLU (test code = 6907000351) 193 mg/dL 70-110 H Lab Interpretation (test code = Abnormal 26177-5) [facility] GLUCOSE (AUTOMATED)2022-06-23 12:33:02 Test Item Value Reference Range Interpretation Comments POCT GLU (test code = 9473269199) 193 mg/dL 70-110 H Lab Interpretation (test code = Abnormal 18571-9) [facility] GLUCOSE (AUTOMATED)2022-06-23 02:42:00 Test Item Value Reference Range Interpretation Comments POCT GLU (test code = 0766140211) 166 mg/dL 70-110 H Lab Interpretation (test code = Abnormal 72167-1) [facility] GLUCOSE (AUTOMATED)2022-06-23 02:42:00 Test Item Value Reference Range Interpretation Comments POCT GLU (test code = 1206486880) 166 mg/dL 70-110 H Lab Interpretation (test code = Abnormal 78045-7) [facility] [id number] 23:14:43 Test Item Value Reference Range Interpretation Comments PHOSPHORUS (test code = 3.1 mg/dL 2.5-5 Slig ht hemolysis 9084889616) Lab Interpretation (test Normal code = 98080-2) [facility] [id number] 23:14:43 Test Item Value Reference Range Interpretation Comments PHOSPHORUS (test code = 3.1 mg/dL 2.5-5 Slig ht hemolysis 5179868153) Lab Interpretation (test Normal code = 16747-7) [facility] GLUCOSE (AUTOMATED)2022-06-22 22:01:14 Test Item Value Reference Range Interpretation Comments POCT GLU (test code = 1387794538) 216 mg/dL 70-110 H Lab Interpretation (test code = Abnormal 76596-5) [facility] GLUCOSE (AUTOMATED)2022-06-22 22:01:14 Test Item Value Reference Range Interpretation Comments POCT GLU (test code = 2100575803) 216 mg/dL 70-110 H Lab Interpretation (test code = Abnormal 88588-4) [facility] GLUCOSE (AUTOMATED)2022-06-22 16:56:03 Test Item Value Reference Range Interpretation Comments POCT GLU (test code = 9521836531) 170 mg/dL 70-110 H Lab Interpretation (test code = Abnormal 90393-2) [facility] GLUCOSE (AUTOMATED)2022-06-22 16:56:03 Test Item Value Reference Range Interpretation Comments POCT GLU (test code = 9116227717) 170 mg/dL 70-110 H Lab Interpretation (test code = Abnormal 04360-6) [facility] GLUCOSE (AUTOMATED)2022-06-22 13:15:17 Test Item Value Reference Range Interpretation Comments POCT GLU (test code = 3498591392) 186 mg/dL 70-110 H Lab Interpretation (test code = Abnormal 98584-3) [facility] GLUCOSE (AUTOMATED)2022-06-22 13:15:17 Test Item Value Reference Range Interpretation Comments POCT GLU (test code = 7704019773) 186 mg/dL 70-110 H Lab Interpretation (test code = Abnormal 92246-9) [facility] GLUCOSE (AUTOMATED)2022-06-22 00:55:28 Test Item Value Reference Range Interpretation Comments POCT GLU (test code = 4706123618) 201 mg/dL 70-110 H Lab Interpretation (test code = Abnormal 23775-8) [facility] GLUCOSE (AUTOMATED)2022-06-22 00:55:28 Test Item Value Reference Range Interpretation Comments POCT GLU (test code = 7109291332) 201 mg/dL 70-110 H Lab Interpretation (test code = Abnormal 19406-5) [facility]2022-06-21 22:48:56 Test Item Value Reference Range Interpretation Comments Height (test code = in 7566560566) Weight (test code = lbs 5058127304) Systolic BP (test code = mmHg 8018295412) Diastolic BP (test code mmHg = 9127411214) Heart Rate (test code = bpm 0454432444) LVOT stroke volume (test 79.70 cm3 code = 3970072534) EF(Teich) (test code = 56.30 % 0517923312) LVIDD (test code = 4.60 cm 5070398080) LVIDS (test code = 3.30 cm 2673747069) Left Ventricular End 43.5 mL Systolic Volume by Teichholz Method (test code = 9566122) Left Ventricular End 99.6 mL Diastolic Volume by Teichholz Method (test code = 1505277) IVS (test code = 1.19 cm 5900862351) LVPWD (test code = 1.08 cm 0613701809) LVOT diameter (test code 2.05 cm = 5026238851) LVOT area (test code = 3.30 cm2 1018890831) FS (test code = 29 % 2604472305) MV Peak E Tian (test code 84.6 cm/s = 7218706936) MV Peak A Tian (test code 110.3 cm/s = 0396952909) E/A ratio (test code = ratio 3077968522) E wave decelartion time 0.25 s (test code = 7361844774) MV E/e' septal (test 4.0 cm/s code = 0392389980) LA Volume Index (BP) 36.7 mL/m2 (test code = 8358022259) LA volume (BP) (test 65.4 mL code = 4975358212) LVOT peak tian (test code 100.1 cm/s = 6229032771) LVOT mn grad (test code mmHg = 8098035284) BSA (test code = 1.78 m2 3663589238) LA size (test code = 3.4 cm 9880242349) LAV(MOD-sp2) (test code 61.30 mL = 4532505265) LAV(MOD-sp4) (test code 58.90 mL = 7807986521) Tapse (test code = 2.48 cm 0164249217) AV LVOT peak gradient mmHg (test code = 8046881712) LVOT peak VTI (test code 24.2 cm = 2852752571) LV V1 mean (test code = 64.80 cm/s 3505735472) MV Prop V (test code = 31.70 cm/s 7933888187) Ao root diam (test code 3.40 cm = 2169984753) Aortic root (test code = 3.4 cm 6368944586) Ao root annulus (test 3.4 cm code = 7739649453) PW (test code = 1.08 cm 0.6-1.1 0379272756) EF - 2D (test code = 56.30 % 32372748) Interventricular Septum 1.19 cm Diastolic Thickness by 2D (test code = 0879150) Left Ventricular Cardiac 4.8 L/min Output (test code = 8000731) Aortic HR (test code = BPM 5582852234) Aortic valve mean 86.9 cm/s velocity (test code = 2761203375) Ao peak tian (test code = 153.7 cm/s 3982572941) Ao VTI (test code = 33.7 cm 7302007453) AV area by cont VTI 2.4 cm2 (test code = 7475110700) AV area peak tian (test 2.2 cm2 code = 3038920685) Ao max PG (test code = 9.40 mm[Hg] 3149578184) AV peak gradient (test mmHg code = 8907417854) AV valve area (test code 2.37 cm2 = 7260481309) AV mean gradient (test mmHg code = 6240456541) IVC Diam Exp(MM) (test 1.87 cm code = 4524554421) IVC Diam Ins(MM) (test 0.78 cm code = 2278430577) Radiology Study observation (narrative) (test code = 94616-4) WINDY (test code = WINDY) ?Left?Ventricle: Left [...] enhancing agent used. Patient exhibited sinus bradycardia. [facility]22-[facility]21 22:48:56 Test Item Value Reference Range Interpretation Comments Height (test code = in 1782065122) Weight (test code = lbs 1885502942) Systolic BP (test code = mmHg 6963179264) Diastolic BP (test code mmHg = 1968232033) Heart Rate (test code = bpm 2174381527) LVOT stroke volume (test 79.70 cm3 code = 2992631574) EF(Teich) (test code = 56.30 % 3389363045) LVIDD (test code = 4.60 cm 5373826456) LVIDS (test code = 3.30 cm 7270483202) Left Ventricular End 43.5 mL Systolic Volume by Teichholz Method (test code = 9894259) Left Ventricular End 99.6 mL Diastolic Volume by Teichholz Method (test code = 7000218) IVS (test code = 1.19 cm 1067372199) LVPWD (test code = 1.08 cm 4020288778) LVOT diameter (test code 2.05 cm = 8865187649) LVOT area (test code = 3.30 cm2 1035496364) FS (test code = 29 % 7505660831) MV Peak E Tian (test code 84.6 cm/s = 4892003923) MV Peak A Tian (test code 110.3 cm/s = 4980188884) E/A ratio (test code = ratio 8832994296) E wave decelartion time 0.25 s (test code = 3199089528) MV E/e' septal (test 4.0 cm/s code = 2244961427) LA Volume Index (BP) 36.7 mL/m2 (test code = 3155487630) LA volume (BP) (test 65.4 mL code = 7686615967) LVOT peak tian (test code 100.1 cm/s = 7956315822) LVOT mn grad (test code mmHg = 6422173893) BSA (test code = 1.78 m2 9192125258) LA size (test code = 3.4 cm 9558975922) LAV(MOD-sp2) (test code 61.30 mL = 2822193343) LAV(MOD-sp4) (test code 58.90 mL = 8948830681) Tapse (test code = 2.48 cm 0876609447) AV LVOT peak gradient mmHg (test code = 2388900055) LVOT peak VTI (test code 24.2 cm = 6546257141) LV V1 mean (test code = 64.80 cm/s 9787428222) MV Prop V (test code = 31.70 cm/s 8577630108) Ao root diam (test code 3.40 cm = 9903883748) Aortic root (test code = 3.4 cm 3114632551) Ao root annulus (test 3.4 cm code = 8325301452) PW (test code = 1.08 cm 0.6-1.3 3197255939) EF - 2D (test code = 56.30 % 33783011) Interventricular Septum 1.19 cm Diastolic Thickness by 2D (test code = 2261283) Left Ventricular Cardiac 4.8 L/min Output (test code = 8206890) Aortic HR (test code = BPM 9968464647) Aortic valve mean 86.9 cm/s velocity (test code = 2046092380) Ao peak tian (test code = 153.7 cm/s 6767045257) Ao VTI (test code = 33.7 cm 0371796520) AV area by cont VTI 2.4 cm2 (test code = 8558401266) AV area peak tian (test 2.2 cm2 code = 2002513478) Ao max PG (test code = 9.40 mm[Hg] 7636503383) AV peak gradient (test mmHg code = 9368264599) AV valve area (test code 2.37 cm2 = 3777500268) AV mean gradient (test mmHg code = 7620699856) IVC Diam Exp(MM) (test 1.87 cm code = 1549695038) IVC Diam Ins(MM) (test 0.78 cm code = 7234327767) Radiology Study observation (narrative) (test code = 14088-1) WINDY (test code = WINDY) ?Left?Ventricle: Left [...] enhancing agent used. Patient exhibited sinus bradycardia. [facility] GLUCOSE (AUTOMATED)2022-06-21 21:50:29 Test Item Value Reference Range Interpretation Comments POCT GLU (test code = 9929102061) 181 mg/dL 70-110 H Lab Interpretation (test code = Abnormal 77017-0) [facility] GLUCOSE (AUTOMATED)2022-06-21 21:50:29 Test Item Value Reference Range Interpretation Comments POCT GLU (test code = 6199236786) 181 mg/dL 70-110 H Lab Interpretation (test code = Abnormal 93724-4) [facility] GLUCOSE (AUTOMATED)2022-06-21 20:55:06 Test Item Value Reference Range Interpretation Comments POCT GLU (test code = 2586568119) 159 mg/dL 70-110 H Lab Interpretation (test code = Abnormal 97797-6) [facility] GLUCOSE (AUTOMATED)2022-06-21 20:55:06 Test Item Value Reference Range Interpretation Comments POCT GLU (test code = 4244803665) 159 mg/dL 70-110 H Lab Interpretation (test code = Abnormal 26708-9) [facility]-GLU[facility]SE [id number] 11:32:00 Test Item Value Reference Range Interpretation Comments POC-GLUCOSE METER 235 mg/dL 70-110 H : TESTED A T [facility] 6720 (MoblyngAKER) (test code = [facility], 1538) 16729: German Instructor/Techni chika ID = [id number] for QUEEN LASSITER POCT-GLUCOSE [id number] 07:37:00 Test Item Value Reference Range Interpretation Comments POC-GLUCOSE METER 190 mg/dL 70-110 H : TESTED A T [facility] 67[address] (BEAKER) (test code = [facility], 1538) 83460: German Instructor/Techni chika ID = [id number] for QUEEN LASSITER CBC W/PLT COUNT & AUTO [id number] 06:10:00 Test Item Value Reference Range Interpretation [...] PERCENT (BEAKER) (test code = 2801) POCT-GLUCOSE [id number] 22:16:00 Test Item Value Reference Range Interpretation Comments POC-GLUCOSE METER 275 mg/dL 70-110 H : TESTED A T [facility] 67[address] (BEAKER) (test code = [facility], 153) 08905: German Instructor/Techni chiak ID = [id number] for YRIS HENAO POCT-GLUCOSE [id number] 16:44:00 Test Item Value Reference Range Interpretation Comments POC-GLUCOSE METER 200 mg/dL 70-110 H : TESTED A T [facility] 67[address] (BEAKER) (test code = [facility], 153) 82162: German Instructor/Techni chika ID = [id number] for QUEEN LASSITER POCT-GLUCOSE [id number] 12:11:00 Test Item Value Reference Range Interpretation Comments POC-GLUCOSE METER 180 mg/dL 70-110 H : TESTED A T [facility] 67[address] (BEAKER) (test code = [facility], 153) 64886: German Instructor/Techni chika ID = [id number] for NW AJSHIVAKU, SHAYY POCT-GLUCOSE [id number] 08:17:00 Test Item Value Reference Range Interpretation Comments POC-GLUCOSE METER 158 mg/dL 70-110 H : TESTED A T [facility] (BEAKER) (test code = [facility] [facility], 153) 87478: German Instructor/Techni chika ID = [id number] for NW AJIAKU, SHAYY CBC W/PLT COUNT & AUTO [id number] 04:14:00 Test Item Value Reference Range Interpretation [...] PERCENT (BEAKER) (test code = 2801) POCT-GLUCOSE [id number] 16:12:00 Test Item Value Reference Range Interpretation Comments POC-GLUCOSE METER 233 mg/dL 70-110 H : TESTED A T [facility] 6720 (BEAKER) (test code = DINA SE[place], 1538) 68508: German Instructor/Techni chika ID = [id number] for SHAYY ALBRIGHT POCT-GLUCOSE [id number] 12:02:00 Test Item Value Reference Range Interpretation Comments POC-GLUCOSE METER 190 mg/dL 70-110 H : TESTED A T [facility] 6720 (BEAKER) (test code = DINA Ortega [facility], 1538) 19485: German Instructor/Techni chika ID = [id number] for SHAYY ALBRIGHT STOOL CULTURE + SHIGA [id number] 09:19:00 Test Item Value Reference Range Interpretation Comments CULTURE (BEAKER) No Salmonella, Shigella (test code = 1095) or Campylobacter isolated POCT-GLUCOSE [id number] 07:46:00 Test Item Value Reference Range Interpretation Comments POC-GLUCOSE METER 174 mg/dL 70-110 H : [facility] ([facility] (test code = DINA Ortega [facility], 1538) 74854: German Instructor/Techni chika ID = [id number] for SHAYY ALBRIGHT CBC W/PLT COUNT & AUTO [id number] 06:53:00 Test Item Value Reference Range Interpretation [...] 0-1 PERCENT (BEAKER) (test code = 2801) [id number] 06:20:00 Test Item Value Reference Range Interpretation Comments MAGNESIUM (BEAKER) 1.7 mg/dL 1.6-2.6 Specimen slightly (test code = 627) hemolyzed German Instructor ID - LATA WBASIC METABOLIC [id number] 06:20:00 Test Item Value Reference Range Interpretation [...] S NOT APPLICABLE FOR DIALYSIS PATIEN TS. German Instructor ID - LATA WHEPATIC FUNCTION [id number] 06:20:00 Test Item Value Reference Range Interpretation [...] Specimen slightly (test code = 347) hemolyzed German Instructor ID - LATA WPOCT-GLUCOSE [id number] 21:46:00 Test Item Value Reference Range Interpretation Comments POC-GLUCOSE METER 181 mg/dL 70-110 H : TESTED A T [facility] 6720 (BEAKER) (test code = DINA Ortega [facility], 1538) 01543: German Instructor/Techni chika ID = [id number] for JEREMY GUPTA CT, BRAIN, WITHOUT [id number] 18:11:00FINAL REPORT CT, BRAIN, WITHOUT CONTRAST INDICATION: [...] Annmarie Burch Verified Date/Time: 03/26/2020 18:11:57 POCT-GLUCOSE [id number] 17:31:00 Test Item Value Reference Range Interpretation Comments POC-GLUCOSE METER 209 mg/dL 70-110 H : Notified RN/MD: ([facility]) (test code = TESTED AT [place] [address] 1538) [facility], [address]: German Instructor/Techni chika ID = [id number] for MEERA LEMOS SHIGA TOXIN [id number] 15:19:00 Test Item Value Reference Range Interpretation Comments SHIGA TOXIN 1 ([facility]) (test Not detected Not detected code = 2177) SHIGA TOXIN 2 ([facility]) (test Not detected Not detected code = 2179) POCT-GLUCOSE [id number] 11:53:00 Test Item Value Reference Range Interpretation Comments POC-GLUCOSE METER 159 mg/dL 70-110 H : TESTED A T [facility] 6720 ([facility]) (test code = [facility], 153) 23589: German Instructor/Techni chika ID = [id number] for SANDRA HOLLSI STOOL PATH [id number] 11:36:00 Test Item Value Reference Range Interpretation Comments PATHOGEN EXAM CHARGED ([facility]) (test Done code = 2381) POCT-GLUCOSE [id number] 07:11:00 Test Item Value Reference Range Interpretation Comments POC-GLUCOSE METER 146 mg/dL 70-110 H : [facility] ([facility]) (test code = [facility], 1538) 627[address]: German Instructor/Techni chika ID = [id number] for MILY GROVE [id number] 06:04:00 Test Item Value Reference Range Interpretation Comments MAGNESIUM (BEAKER) (test code = 1.9 mg/dL 1.6-2.6 627) German Instructor ID - PIAYA LBASIC METABOLIC [id number] 06:04:00 Test Item Value Reference Range Interpretation [...] S NOT APPLICABLE FOR DIALYSIS PATIEN TS. German Instructor ID - PIAYA LHEPATIC FUNCTION [id number] 06:04:00 Test Item Value Reference Range Interpretation [...] (test code = 15 U/L 6-55 347) German Instructor ID - PIAYA LCBC W/PLT COUNT & AUTO [id number] 05:20:00 Test Item Value Reference Range Interpretation [...] PERCENT (BEAKER) (test code = 2801) POCT-GLUCOSE [id number] 21:12:00 Test Item Value Reference Range Interpretation Comments POC-GLUCOSE METER 154 mg/dL 70-110 H : TESTED A T [facility] 6720 (BEAKER) (test code = [facility], 1538) 26657: German Instructor/Techni chika ID = [id number] for JEREMY GUPTA POCT-GLUCOSE [id number] 17:43:00 Test Item Value Reference Range Interpretation Comments POC-GLUCOSE METER 152 mg/dL 70-110 H : TESTED A T [facility] 6720 (BEAKER) (test code = [facility], 1538) 68061: German Instructor/Techni chika ID = [id number] for [place] SARS-COV2/RT-PCR ([facility])2020-03-25 13:40:00 Test Item Value Reference Range Interpretation Comments SARS-COV2/RT-PCR (test code = Negative Not Detected, Negative 9368200) SARS-COV-2 PERFORMING LAB [facility] (test code = 9976323) Negative result for this test determines that [...] of the Act.Fact Sheet for Healthcare Prov iders:https://www.[employer]/sites/default/files/product/documents/Fact_Sheet_HC _Kzwvfvdnh_Nhcf_FSQL-TtV-6.pdfFact Sheet for Healthcare Patients:https://www.[employer]/sites/default/files/product/docume nts/Wdbw_Jtsfm_Yxrdtzbd_Kcxc_FCGI-DpA-2.pdfPerforming Laboratory:[facility], [place] [address]AHTZ-[id number] METER 2020-03-25 11:24:00 Test Item Value Reference Range Interpretation Comments POC-GLUCOSE METER 165 mg/dL 70-110 H : TESTED A T [facility] 6720 ([facility]) (test code = DINA Ortega [facility], 1538) 59389: German Instructor/Techni chika ID = [id number] for SANDRA HOLLIS TSH/FREE T4 IF [id number] 10:59:00 Test Item Value Reference Range Interpretation Comments THYROID STIMULATING HORMONE 0.622 uIU/mL 0.350-4.940 ([place]) (test code = 772) German Instructor ID - PIAYA LHEMOGLOBIN [id number] 10:59:00 Test Item Value Reference Range Interpretation Comments HEMOGLOBIN A1C ([place]) (test code = 6.9 % 4.3-6.1 H 368) TROPONIN [id number] 10:50:00 Test Item Value Reference Range Interpretation Comments TROPONIN I ([place]) (test code = 0.02 ng/mL 0.00-0.03 397) [...] failure, acidosis, acute neurological disease, and persistent tachyarrhythmia.German Instructor ID - WAGNER LBASIC METABOLIC [id number] 10:42:00 Test Item Value Reference Range Interpretation [...] S NOT APPLICABLE FOR DIALYSIS PATIEN TS. German Instructor ID - PIAYA LHEPATIC FUNCTION [id number] 10:42:00 Test Item Value Reference Range Interpretation [...] (test code = 10 U/L 6-55 347) German Instructor ID - WAGNER [id number] 10:41:00 Test Item Value Reference Range Interpretation Comments PHOSPHORUS (BEAKER) (test code = 3.2 mg/dL 2.3-4.7 604) German Instructor ID - WAGNER [id number] 10:41:00 Test Item Value Reference Range Interpretation Comments MAGNESIUM (BEAKER) (test code = 2.0 mg/dL 1.6-2.6 627) German Instructor ID - WAGNER LPOCT-GLUCOSE [id number] 09:10:00 Test Item Value Reference Range Interpretation Comments POC-GLUCOSE METER 116 mg/dL 70-110 H : TESTED A T [facility] 6720 (BEAKER) (test code = DINA Ortega [place], 1538) 370[address]: German Instructor/Techni chika ID = [id number] for ADRIANNA NICHOLASLANCE SHHAID RAD, CHEST, 1 VIEW, NON [id number] 07:49:00Reason for exam:->chest painShould this be performed at the bedside?->YesFINAL REPORT CLINICAL HISTORY: chest pain TECHNIQUE: 1 view of the chest. COMPAR NIEVES: None IMPRESSION: There are linear bandlike opacities in the bilateral mid and lower lungs. There are no significant effusions. The cardiomediastinal silhouette is magnified by technique. Signed: Keturah Mensah MDReport Verified Date/Time: 03/25/2020 07:49:59 Reading Location: [facility] Radiology Reading Room C. DIFFICILE GDH [id number] 06:54:00 Test Item Value Reference Range Interpretation Comments CDT TOXIN (test code Negative Negative = [id number]) CDT GDH ANTIGEN (test Negative Negative No ind ication of code = 2807215817) Clostridi um difficile infection and n o colonization. Discontinue ent perez isolation and t herapy. Testing performed by C3L3B Digital Rapid Cassette Assay. For GDH, published sensitivity of the assay is 98.7% compared to cytotoxicity testing. For Toxin AB, published sensitivity is 87.8% and specificity 99.4% compared to cytotoxicity testing.Verification of kit performance was done by the [facility]biology[facility] prior to clinical use.URINALYSIS WITH MICROSCOPIC IF [id number] 06:35:00 Test Item Value Reference Range Interpretation [...] = 463) SOURCE(BEAKER) (test code = 2795) German Instructor ID - [auto]German Instructor ID - techURINALYSIS [id number] 06:35:00 Test Item Value Reference Range Interpretation Comments RBC UA (BEAKER) (test code = 519) 3 /HPF WBC UA (BEAKER) (test code = 520) 11 /HPF BACTERIA (BEAKER) (test code = 517) Rare SQUAMOUS EPITHELIAL (BEAKER) (test 1 /HPF code = 516) German Instructor ID - techPOCT-GLUCOSE [id number] 05:08:00 Test Item Value Reference Range Interpretation Comments POC-GLUCOSE METER 128 mg/dL 70-110 H : TESTED A T [facility] 6720 (BEAKER) (test code = DINA [place], 1538) 588[address]: German Instructor/Techni chika ID = [id number] for As Meena beckett"
[2022-07-25 05:54] LABS: Absolute Lymphocytes (CBC) 0.8 K/uL (0.7-4.9); Hematocrit 32.4 % (36.0-45.0); Lymphocytes % 14.1 % (15.3-44.8); MCV 76.8 fL (80-100); MPV 6.7 fL (7.6-11.3); RBC Red Blood Cell Count 4.22 M/uL (3.86-4.86)
[2022-07-25 06:11] LABS: Potassium 3.6 mmol/L (3.5-5.1); Troponin High Sensitivity 13.7 pg/mL (<58.9)
[2022-07-25 07:15] LABS: Platelet Estimate ADEQ; Platelets, Giant 1+; White Blood Cell Scan OK (OK)
[2022-07-25 07:21] LABS: Blood Morphology Comment NOTED (NOT SEEN)
[2022-07-25 07:28] LABS: Anisocytosis 2+
[2022-07-25 07:29] LABS: Hypochromasia 1+; Ovalocytes SLIGHT; Poikilocytosis 1+; Stomatocytes 1+; Teardrop Cell FEW
[2022-07-25 07:30] LABS: Burr Cells FEW
--- NOTE | 2022-07-25 07:30 | RAD REPORT ---
EXAM DESCRIPTION: CT - Abdomen Pelvis W Contrast - 07/25/2022 7:06 am CLINICAL HISTORY: Abdominal pain COMPARISON: 2019 TECHNIQUE: Computed axial tomography of the abdomen pelvis was obtained. 100 cc Isovue-300 was admin istered intravenously. Oral contrast was not requested which limits evaluation of bowel and appendix All CT scans are performed using dose optimization technique as appropriate and may include automated exposure control or mA/KV adjustment according to patient size. FINDINGS: The liver, spleen, adrenal and kidneys appear unremarkable. Cholecystectomy. Hysterectomy. No adnexal mass. There is no evidence of diverticulitis. Rectum is mildly distended with stool. Moderate to large amount of stool is present throughout the co angeli. IMPRESSION: Rectum is mildly distended with stool. Moderate to large amount of stool is present thro ughout the colon.
[2022-07-25] MEDS ORDERED: NA CHLORIDE 0.9% 500 ML ONE (08:10)
--- NOTE | 2022-07-25 08:54 | RAD REPORT ---
EXAM DESCRIPTION: CT - Head Brain Wo Cont - 07/25/2022 8:27 am CLINICAL HISTORY: Alteration of awareness/confusion COMPARISON: June 2022 TECHNIQUE: Computed axial tomography of the head was obtained. IV contrast was not requested. All CT scans are performed using dose optimization technique as appropriate and may include automated exposure control or mA/KV adjustment according to patient size. FINDINGS: Right craniotomy An intracranial bleed is not seen . The ventricles are normal in caliber. No extra-axial fluid collection is noted. Old lacunar infarct right basal ganglia. Fluid within the sinuses/ mastoids is not seen. IMPRESSION: No acute intracranial abnormality is seen. If patient's symptoms persist MRI of the bra in would be recommended.
[2022-07-25 10:21] LABS: Urine Blood 1+ (Negative); Urine Glucose Negative (Negative); Urine Protein Negative (Negative)
--- NOTE | 2022-07-25 10:23 | EDPHYS ---
Physician Documentation [facility] Name: Skylar Grossman Age: 87 yrs Sex: Female : 1935 Arrival Date: 07/25/2022 Time: 05:37 Bed 8 Private MD: ED Physician Kareem Atkinson HPI: 07/25 05:40 This 87 yrs old Female presents to ER via Unassigned with complaints of AMS. ms3 05:40 The patient presents with Difficulty waking up. Onset: The symptoms/episode ms3 began/occurred just prior to arrival. Possible causes: unknown. Associated signs and symptoms: The patient has no apparent associated signs or symptoms. Current symptoms: In the emergency department the patient's symptoms have improved. Historical: - Allergies: 07:13 Codeine (Upset stomach); ph 07:13 meperidine HCl; ph 07:13 Morphine; ph - PMHx: 07:13 CVA; Dementia; Depression; Diabetes - IDDM; GERD; High Cholesterol; Hypertension; ph - PSHx: 05:40 Appendectomy; Total abdominal hysterectomy; Cholecystectomy; pf1 - Immunization history:: Adult Immunizations unknown. - Social history:: Smoking status: unknown Patient uses. - Family history:: not pertinent. - Code Status:: Full code. - History obtained from: EMS. ROS: 05:40 Constitutional: Negative for fever, and chills. Eyes: Negative for injury, pain, ms3 redness, and discharge, Neck: Negative for injury, pain, and swelling, Cardiovascular: Negative for chest pain, and palpitations. Respiratory: Negative for shortness of breath, cough, wheezing, and pleuritic chest pain, Abdomen/GI: Negative for abdominal pain, nausea, vomiting, diarrhea, and constipation, MS/Extremity: Negative for injury and deformity. 05:40 All other systems are negative. Exam: 05:40 Constitutional: This is a well developed, well nourished patient who is awake, alert, ms3 and in no acute distress. Head/Face: Normocephalic, atraumatic. Eyes: Pupils equal round and reactive to light, extra-ocular motions intact. Lids and lashes normal. Conjunctiva and sclera are non-icteric and not injected. Periorbital areas with no swelling, redness, or edema. Neck: Trachea midline, no cervical lymphadenopathy. Supple, full range of motion without nuchal rigidity, or vertebral point tenderness. No Meningismus. Chest/axilla: Normal chest wall appearance and motion. Nontender with no deformity. Cardiovascular: Regular rate and rhythm with a normal S1 and S2. No gallops, murmurs, or rubs. Normal PMI, no JVD. No pulse deficits. Respiratory: Lungs have equal breath sounds bilaterally, clear to auscultation and percussion. No rales, rhonchi or wheezes noted. No increased work of breathing, no retractions or nasal flaring. Abdomen/GI: Soft, non-tender, with normal bowel sounds. No distension or tympany. No guarding or rebound. No evidence of tenderness throughout. Skin: Warm, dry with normal turgor. Normal color with no rashes, no lesions, and no evidence of cellulitis. MS/ Extremity: Pulses equal, no cyanosis. Neurovascular intact. Full, normal range of motion. Neuro: Awake and alert, GCS 15, oriented to person, place, time, and situation. Cranial nerves II-XII grossly intact. Motor strength 5/5 in all extremities. Sensory grossly intact. Cerebellar exam normal. Normal gait. 05:44 ECG was reviewed by the Attending Physician. ms3 Vital Signs: 05:40 BP 111 / 69; Pulse 111; Resp 18; Temp 98.2; Pulse Ox 97% ; Weight 74.39 kg; Height 5 pf1 ft. 2 in. (157.48 cm); 07:34 BP 142 / 80; Pulse 93; Resp 20; Pulse Ox 98% on R/A; ph 08:44 BP 147 / 80; Pulse 86; Resp 17; Pulse Ox 97% on R/A; tw2 09:48 BP 134 / 73; Pulse 87; Resp 17; Pulse Ox 96% on R/A; tw2 10:45 BP 141 / 70; Pulse 82; Resp 19; Pulse Ox 96% on R/A; tw2 11:44 BP 134 / 79; Pulse 83; Resp 17; Pulse Ox 97% on R/A; tw2 12:45 BP 115 / 86; Pulse 83; Resp 17; Pulse Ox 97% on R/A; tw2 15:23 BP 155 / 83; Pulse 82; Resp 17; Temp 98.3(O); Pulse Ox 96% on R/A; tw2 05:40 Body Mass Index 30.00 (74.39 kg, 157.48 cm) pf1 MDM: 05:38 Patient medically screened. ms3 07:32 Transition of care: After a detail discussion of the patient's case, care is ms3 transferred to Kareem Atkinson MD. 10:20 Differential Diagnosis: CVA, electrolyte abnormality, UTI, volume depletion. Data rn reviewed: vital signs, nurses notes, lab test result(s), radiologic studies, CT scan, and as a result, I will admit patient. Counseling: I had a detailed discussion with the patient and/or guardian regarding: the historical points, exam findings, and any diagnostic results supporting the discharge/admit diagnosis, lab results, radiology results, the need for further work-up and treatment in the hospital. Response to treatment: the patient's symptoms have mildly improved after treatment. Admission orders: after a detailed discussion of the patient's condition and case, the admit orders are written by me. 07/25 05:39 Order name: Basic Metabolic Panel; Complete Time: 07:01 ms3 07/25 05:39 Order name: CBC with Diff; Complete Time: 07:34 ms3 07/25 05:39 Order name: Troponin HS; Complete Time: 07:01 ms3 07/25 05:39 Order name: Urine Microscopic Only ms3 07/25 06:04 Order name: CBC Smear Scan; Complete Time: 07:34 EDMS 07/25 10:20 Order name: Urine Culture rn 07/25 05:39 Order name: XRAY Chest (1 view) ms3 07/25 05:39 Order name: EKG; Complete Time: 05:43 ms3 07/25 05:39 Order name: CT Abd/Pelvis - IV Contrast Only; Complete Time: 07:34 ms3 07/25 08:08 Order name: CT Head Brain wo Cont; Complete Time: 10:12 rn 07/25 10:21 Order name: Urine Dipstick-Ancillary; Complete Time: 10:22 EDMS 07/25 10:34 Order name: SARS RAPID ph 07/25 05:39 Order name: Cardiac monitoring; Complete Time: 07:12 ms3 07/25 05:39 Order name: EKG - Nurse/Tech; Complete Time: 07:21 ms3 07/25 05:39 Order name: IV Saline Lock; Complete Time: 07:12 ms3 07/25 05:39 Order name: Labs collected and sent; Complete Time: 07:12 ms3 07/25 05:39 Order name: O2 Per Protocol; Complete Time: 07:12 ms3 07/25 05:39 Order name: O2 Sat Monitoring; Complete Time: 07:12 ms3 07/25 05:39 Order name: Urine Dipstick-Ancillary (obtain specimen); Complete Time: 10:20 ms3 07/25 11:11 Order name: Diet Heart Healthy; Complete Time: 11:11 ph EC:44 Rhythm is regular. QT interval is normal. Clinical impression: NSR with RBBB. ms3 Interpreted by me. Reviewed by me. Administered Medications: 08:15 Drug: NS 0.9% 500 ml Route: IV; Rate: bolus; Site: right antecubital; tw2 09:28 Follow up: Response: No adverse reaction; IV Status: Completed infusion; IV Intake: ph 500ml 10:32 Drug: Rocephin (cefTRIAXone) 1 grams Route: IV; Rate: calculated rate; Site: right ph antecubital; 11:11 Follow up: Response: No adverse reaction; IV Status: Completed infusion ph Disposition Summary: 07/25/22 10:22 Hospitalization Ordered Hospitalization Status: Observation rn Provider: Edwardo Angel rn Location: Telemetry/[facility] (observation) rn Condition: Stable rn Problem: new rn Symptoms: have improved rn Bed/Room Type: Standard rn Room Assignment: 214(07/25/22 15:40) bd Diagnosis - Altered mental status, unspecified rn - UTI/ Urinary tract infection, site not specified rn - Dehydration rn Forms: - Medication Reconciliation Form rn - SBAR form rn Signatures: Dispatcher [employer] Justyna Barajas Roman, MD MD rn Hall, Patricia, RN RN ph Zuleika Delgado RN RN [email or web address] Barak Walker DO DO ms3 Sadie mckenzie, RN RN pf1 Corrections: (The following items were deleted from the chart) 15:40 10:22 rn bd
--- NOTE | 2022-07-25 10:23 | ER ---
Nurse's Notes 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 EMS stated patient FSBGL 169, RBBB on EKG. EMS stated patient was given 3 units of insulin at 1800 last night. 05:40 Coronavirus screen: Vaccine status: Patient reports being unvaccinated. Patient not pf1 able to answer question for vaccination Patient not able to answer question at this time. Ebola Screen: Patient negative for fever greater than or equal to 101.5 degrees Fahrenheit, and additional compatible Ebola Virus Disease symptoms. Initial Sepsis Screen: Does the patient meet any 2 criteria? No. Patient's initial sepsis screen is negative. Does the patient have a suspected source of infection? No. Patient's initial sepsis screen is negative. Risk Assessment: Do you want to hurt yourself or someone else? Unable to obtain. Onset of symptoms was July 25, 2022. Care prior to arrival: None. 05:40 Method Of Arrival: EMS: [facility] pf1 05:40 Acuity: FARIDA 3 pf1 Triage Assessment: 05:40 General: Appears in no apparent distress. well groomed, well developed. pf1 05:40 Pain: Unable to use pain scale. Does not appear to understand pain scale. EENT: No pf1 deficits noted. 05:40 Neuro: Oriented to person, Pupils are Pupil Size: 2mm sluggish. Cardiovascular: No pf1 deficits noted. Respiratory: No deficits noted. GI: No deficits noted. : No deficits noted. Derm: No deficits noted. Musculoskeletal: No deficits noted. Historical: - Allergies: 07:13 Codeine (Upset stomach); ph 07:13 meperidine HCl; ph 07:13 Morphine; ph - PMHx: 07:13 CVA; Dementia; Depression; Diabetes - IDDM; GERD; High Cholesterol; Hypertension; ph - PSHx: 05:40 Appendectomy; Total abdominal hysterectomy; Cholecystectomy; pf1 - Immunization history:: Adult Immunizations unknown. - Social history:: Smoking status: unknown Patient uses. - Family history:: not pertinent. - Code Status:: Full code. - History obtained from: EMS. Screenin:12 Abuse screen: Denies threats or abuse. Denies injuries from another. Nutritional ph screening: No deficits noted. Tuberculosis screening: No symptoms or risk factors identified. Fall Risk No fall in past 12 months (0 pts). No secondary diagnosis (0 pts). IV access (20 points). Ambulatory Aid- Crutches/Cane/Walker (15 pts). Gait- Weak (10 pts.). Mental Status- Overestimates/Forgets Limitations (15 pts.). Total Nettles Fall Scale indicates High Risk Score (45 or more points). Fall prevention measures have been instituted. Side Rails Up X 2 Placed Close to Nursing Station Frequent Obs/Assessments Occuring As available patient and family educated on Fall Prevention Program and Strategies. Assessment: 05:40 Reassessment: see triage assessment. General: Appears in no apparent distress. pf1 comfortable, well groomed, Behavior is calm, cooperative, quiet, Patient alert and orientated to self. Patient responses to tactical and vocal stimuli. 05:40 Pain: Denies pain. pf1 08:24 Reassessment: pt transported to CT at this time via stretcher with Rustam Ross. tw2 08:48 Reassessment: Patient appears in no apparent distress at this time. Patient and/or tw2 family updated on plan of care and expected duration. Pain level reassessed. 09:49 Reassessment: Patient appears in no apparent distress at this time. Patient and/or tw2 family updated on plan of care and expected duration. Pain level reassessed. 11:44 Reassessment: Patient appears in no apparent distress at this time. Patient and/or tw2 family updated on plan of care and expected duration. Pain level reassessed. 12:46 Reassessment: Patient appears in no apparent distress at this time. Patient and/or tw2 family updated on plan of care and expected duration. Pain level reassessed. pt ate approximately half of her lunch food. pt given water and juice at this time. 13:20 Reassessment: Patient appears in no apparent distress at this time. Patient and/or tw2 family updated on plan of care and expected duration. Pain level reassessed. pt had large formed BM. pt cleaned and placed in new brief with pur wick in place. 14:00 Reassessment: Patient appears in no apparent distress at this time. Patient and/or tw2 family updated on plan of care and expected duration. Pain level reassessed. 15:22 Reassessment: pt had loose BM at this time. pt cleaned \T\ new purwick put into place. tw2 15:24 Reassessment: Patient appears in no apparent distress at this time. Patient and/or tw2 family updated on plan of care and expected duration. Pain level reassessed. Vital Signs: 05:40 BP 111 / 69; Pulse 111; Resp 18; Temp 98.2; Pulse Ox 97% ; Weight 74.39 kg; Height 5 pf1 ft. 2 in. (157.48 cm); 07:34 BP 142 / 80; Pulse 93; Resp 20; Pulse Ox 98% on R/A; ph 08:44 BP 147 / 80; Pulse 86; Resp 17; Pulse Ox 97% on R/A; tw2 09:48 BP 134 / 73; Pulse 87; Resp 17; Pulse Ox 96% on R/A; tw2 10:45 BP 141 / 70; Pulse 82; Resp 19; Pulse Ox 96% on R/A; tw2 11:44 BP 134 / 79; Pulse 83; Resp 17; Pulse Ox 97% on R/A; tw2 12:45 BP 115 / 86; Pulse 83; Resp 17; Pulse Ox 97% on R/A; tw2 15:23 BP 155 / 83; Pulse 82; Resp 17; Temp 98.3(O); Pulse Ox 96% on R/A; tw2 05:40 Body Mass Index 30.00 (74.39 kg, 157.48 cm) pf1 ED Course: 05:37 Patient arrived in ED. ms3 05:38 Barak Walker DO is Attending Physician. ms3 05:40 No provider procedures requiring assistance completed. pf1 05:50 Inserted saline lock: 20 gauge in right antecubital area, using aseptic technique. pf1 06:09 Sadie mckenzie, JOSE EDUARDO is Primary Nurse. pf1 06:19 Triage completed. pf1 06:42 XRAY Chest (1 view) In Process Unspecified. EDMS 07:08 CT Abd/Pelvis - IV Contrast Only In Process Unspecified. EDMS 07:12 Arm band placed on Patient placed in an exam room, on a stretcher. ph 07:12 Patient has correct armband on for positive identification. Placed in gown. Bed in low ph position. Call light in reach. Side rails up X2. Client placed on continuous cardiac and pulse oximetry monitoring. NIBP monitoring applied. 07:33 Attending Physician role handed off by Barak Walker DO ms3 07:33 Kareem Atkinson MD is Attending Physician. ms3 08:28 CT Head Brain wo Cont In Process Unspecified. EDMS 08:49 Primary Nurse role handed off by Sadie mckenzie, JOSE EDUARDO tw2 08:49 Zuleika Delgado, JOSE EDUARDO is Primary Nurse. tw2 10:21 Edwardo Angel MD is Hospitalizing Provider. rn 15:48 Awaiting: unsuccessful attempt to call report at this time. tw2 15:49 Patient admitted, IV remains in place. tw2 Administered Medications: 08:15 Drug: NS 0.9% 500 ml Route: IV; Rate: bolus; Site: right antecubital; tw2 09:28 Follow up: Response: No adverse reaction; IV Status: Completed infusion; IV Intake: ph 500ml 10:32 Drug: Rocephin (cefTRIAXone) 1 grams Route: IV; Rate: calculated rate; Site: right ph antecubital; 11:11 Follow up: Response: No adverse reaction; IV Status: Completed infusion ph Medication: 07:12 VIS not applicable for this client. ph Intake: 09:28 IV: 500ml; Total: 500ml. ph Outcome: 10:22 Decision to Hospitalize by Provider. rn 15:49 Condition: stable tw2 15:49 Instructed on the need for admit. 16:22 Admitted to Med/surg accompanied by nurse, via stretcher, room 214 , with chart, Report tw2 called to JOSE EDUARDO Oliveira 16:55 Patient left the ED. tw2 Signatures: Dispatcher [employer] EDMS Kareem Atkinson MD MD rn Hall, Patricia, RN RN ph Zuleika Delgado RN RN tw2 Barak Walker DO DO ms3 Sadie mckenzie, RN RN pf1 Corrections: (The following items were deleted from the chart) 07:20 05:40 General: Appears pf1 pf1 09:49 08:48 Reassessment: Patient appears in no apparent distress at this time. Patient tw2 and/or family updated on plan of care and expected duration. Pain level reassessed. Patient is alert, oriented x 3, equal unlabored respirations, skin warm/dry/pink. tw2
[2022-07-25] MEDS ORDERED: CEFTRIAXONE 1000 MG/VIAL ONE (10:27)
[2022-07-25] MEDS ORDERED: NA CHLORIDE 0.9% 50 ML IV ONE (10:27)
[2022-07-25 10:40] LABS: Urine Bacteria 20-50 /HPF (<20); Urine WBC Clump Rare /HPF (None Seen)
[2022-07-25 11:47] LABS: SARS-CoV-2 Antigen Rapid Res Negative (Negative)
--- NOTE | 2022-07-25 13:34 | RAD REPORT ---
EXAM DESCRIPTION: RAD - Chest Single View - 07/25/2022 6:40 am CLINICAL HISTORY: Ams. COMPARISON: January 30, 2019 FINDINGS: The heart is normal in size. The pulmonary vascularity is normal. Ectatic tortuous aortic arch is noted. Implanted loop recorder is present. The lungs are clear. No dense focal consolidation is seen. No evidence pleural effusions . No pneumothorax is seen. Changes related to chronic bilateral rotator cuff tears are noted. IMPRESSION: No acute cardiopulmonary process . Electronically signed by: Dionne Daniel MD 07/25/2022 7:00 AM STADIUM ATTENDANT "" Due to temporary technical issues with the PACS/Fluency reporting system, reports are being signed by the in house radiologists without review as a courtesy to insure prompt reporting. The interpreting radiologist is fully responsible for the content of the report.
[2022-07-25] MEDS ORDERED: ONDANSETRON 4 MG/2 ML VIAL IV PRN (16:43)
[2022-07-25] MEDS ORDERED: ACETAMINOPHEN 500 MG TAB PO PRN (16:43)
[2022-07-25] MEDS ORDERED: NA CHLORIDE 0.9% 1,000 ML IV SCH ×2 (16:43→18:30)
[2022-07-25 18:33] VITALS: BMI 25.7
--- NOTE | 2022-07-25 18:35 | P.HP ---
Certification for Inpatient Patient admitted to: Observation With expected LOS: <2 Midnights Practitioner: I am a practitioner with admitting privileges, knowledge of patient current condition, hospital course, and medical plan of care. Services: Services provided to patient in accordance with Admission requirements found in Title 42 Section 412.3 of the Code of Federal Regulations Patient History Date of Service: 07/25/22 Reason for admission: WEAK, INCOHERENT History of Present Illness: SWAPNA HAS HTN, HISTORY OF CVA, ATYPICAL SEIZURES WHO IS MISSING HER KPPRA. SHE IS TAKEN CARE BY SISTER WHO HERSELF IS HAVING MEMORY ISSUES. THEY BOTH DID NOT KNOW WHY SHE IS HERE [facility] SISTER CALLED THE AMBULANCE. Allergies codeine [Codeine] Adverse Reaction (Intermediate, Verified 07/23/19 22:37) HEADACHE/NAUSEATED meperidine HCl [From Demerol] Adverse Reaction (Intermediate, Verified 07/23/19 22:37) DIZZINESS/NAUSEA Home Medications: Amitriptyline HCl 100 mg PO BEDTIME 05/03/19 Clopidogrel Bisulfate [Plavix*] 75 mg PO DAILY 05/03/19 Fluoxetine HCl [Prozac] 20 mg PO DAILY 05/03/19 Gabapentin 300 mg PO TID 05/03/19 Insulin Glargine,Hum.rec.anlog [Lantus Solostar] 20 units SQ BEDTIME 05/03/19 Lisinopril [Zestril] 40 mg PO BEDTIME 05/03/19 Melatonin [Melatonin*] 3 mg PO BEDTIME 05/03/19 Metformin ER [Glucophage ER*] 500 mg PO BID 05/03/19 Simvastatin 20 mg PO BEDTIME 05/03/19 Nebivolol HCl [Bystolic*] 10 mg PO DAILY 02/02/21 Tamsulosin [Flomax*] 0.4 mg PO DAILY 02/02/21 Memantine HCl 5 mg PO BID 08/12/21 Levetiracetam [Keppra] 250 mg PO BID #60 tablet 08/13/21 levETIRAcetam [Keppra*] 250 mg PO BID #60 tab 08/13/21 Insulin Glargine,Hum.rec.anlog [Semglee] 20 unit SQ BEDTIME ml 06/20/22 - Past Medical/Surgical History Diabetic: Yes -: GERD -: Anxiety -: Hypertension -: CVA -: Depression -: IDDM -: Hyperlipidemia -: Cholecystectomy -: Hysterectomy -: Appendectomy - Family History Sister -: Cancer Notes: uterine Mother -: Hypertension Father -: Hypertension - Social History Alcohol use: No CD- Drugs: No Caffeine use: No Review of Systems 10-point ROS is otherwise unremarkable General: Weakness Physical Examination - Vital Signs Temperature: 98.6 F Blood Pressure: 164/88 Pulse: 96 Respirations: 18 Pulse Ox (%): 96 - Physical Exam General: Oriented x2, Mild distress, Confused HEENT: Atraumatic, PERRLA, Mucous membr. moist/pink, EOMI, Sclerae nonicteric Neck: Supple, 2+ carotid pulse no bruit, No LAD, Without JVD or thyroid abnormality Respiratory: Clear to auscultation bilaterally, Normal air movement Cardiovascular: Regular rate/rhythm, Normal S1 S2 Gastrointestinal: Normal bowel sounds, No tenderness Musculoskeletal: No tenderness Integumentary: No rashes Neurological: Normal gait, Normal speech, Normal strength at 5/5 x4 extr, Normal tone, Normal affect Lymphatics: No axilla or inguinal lymphadenopathy - Studies Laboratory Data (last 24 hrs) 07/25/22 05:40: WBC 5.60, Hgb 10.9 L, Hct 32.4 L, Plt Count 253 07/25/22 05:40: Sodium 132 L, Potassium 3.6, BUN 14, Creatinine 1.04, Glucose 163 H Assessment and Plan - Advance Directives Does patient have a Living Will: Yes Does patient have a Durable POA for Healthcare: No
[2022-07-25] MEDS: levETIRAcetam 500 MG TAB PO SCH (20:20)
[2022-07-26 04:18] LABS: Absolute Lymphocytes (CBC) 1.3 K/uL (0.7-4.9); Hematocrit 32.4 % (36.0-45.0); Lymphocytes % 21.8 % (15.3-44.8); MCV 76.7 fL (80-100); MPV 7.1 fL (7.6-11.3); RBC Red Blood Cell Count 4.23 M/uL (3.86-4.86)
[2022-07-26 04:36] LABS: Potassium 3.2 mmol/L (3.5-5.1)
--- NOTE | 2022-07-26 08:25 | EKG ---
Test Date: 2022-07-25 Test Time: 05:29:50 Train Reservation Clerk: TERRANCE MEASUREMENT RESULTS: Intervals: Rate: 87 OK: 202 QRSD: 138 QT: 426 QTc: 512 Compton: P: 41 OK: 202 QRS: -21 T: 32 INTERPRETIVE STATEMENTS: Normal sinus rhythm Right bundle branch block Abnormal ECG Compared to ECG 07/06/2022 12:56:21 First degree AV block no longer present Electronically Signed On 07-26-22 08:20:30 FACING SLITTER by Chintan Lopez
[2022-07-26] MEDS: levETIRAcetam 500 MG TAB PO SCH (08:38)
[2022-07-26] MEDS ORDERED: CEFTRIAXONE 1,000 MG in NA CHLORIDE 0.9% 50 ML IVPB SCH (09:00)
[2022-07-26] MEDS ORDERED: LOSARTAN POTASSIUM 50 MG TABLET PO SCH (09:00)
[2022-07-26 10:13] VITALS: O2SAT 99
[2022-07-26 17:18] VITALS: BP 184/100; TEMP 97.2
--- NOTE | 2022-07-26 19:38 | P.DS ---
Admission Date: 07/25/22 Discharge Date: 07/26/22 Disposition: ROUTINE DISCHARGE Discharge Condition: FAIR Reason for Admission: WEAK, INCOHERENT Brief History of Present Illness: SWAPNA HAS HTN, HISTORY OF CVA, ATYPICAL SEIZURES WHO IS MISSING HER KPPRA. SHE IS TAKEN CARE BY SISTER WHO HERSELF IS HAVING MEMORY ISSUES. THEY BOTH DID NOT KNOW WHY SHE IS HERE [facility] SISTER CALLED THE AMBULANCE. Hospital Course: SWAPNA IS DOING WELL. SHE FORGOT TO TAKE KEPPRA AND SISTER ALSO FORGOT. SHE DID WELLON IT WITH CONTROL OF ABSENCE AND CONFUSION EPISODES. WITHOUT THAT SHE HAD RECURRENCE OF SUCH EPISODE. SHE WILL CONT MEDS AND FU IN OFFICE. I CALLED IN RX FROM OFFICE. Vital Signs/Physical Exam: Temp Pulse Resp BP Pulse Ox 97.2 F 91 H 14 184/100 H 97 07/26/22 17:00 07/26/22 17:00 07/26/22 17:00 07/26/22 17:00 07/26/22 17:00 Laboratory Data at Discharge: WBC 5.80 K/uL (4.3-10.9) 07/26/22 03:45 Hgb 10.9 g/dL (12.0-15.0) L 07/26/22 03:45 Hct 32.4 % (36.0-45.0) L 07/26/22 03:45 Plt Count 253 K/uL (152-406) 07/26/22 03:45 Sodium 135 mmol/L (136-145) L 07/26/22 03:45 Potassium 3.2 mmol/L (3.5-5.1) L 07/26/22 03:45 BUN 12 mg/dL (7-18) 07/26/22 03:45 Creatinine 0.78 mg/dL (0.55-1.3) 07/26/22 03:45 Glucose 157 mg/dL (74-106) H 07/26/22 03:45 Home Medications: Amitriptyline HCl 100 mg PO BEDTIME 05/03/19 Clopidogrel Bisulfate [Plavix*] 75 mg PO DAILY 05/03/19 Fluoxetine HCl [Prozac] 20 mg PO DAILY 05/03/19 Gabapentin 300 mg PO TID 05/03/19 Insulin Glargine,Hum.rec.anlog [Lantus Solostar] 15 units SQ BEDTIME 05/03/19 Lisinopril [Zestril] 40 mg PO BEDTIME 05/03/19 Melatonin [Melatonin*] 3 mg PO BEDTIME 05/03/19 Metformin ER [Glucophage ER*] 500 mg PO BID 05/03/19 Nebivolol HCl [Bystolic*] 10 mg PO DAILY 02/02/21 Tamsulosin [Flomax*] 0.4 mg PO DAILY 02/02/21 Memantine HCl 5 mg PO BID 08/12/21 Omeprazole 20 mg PO DAILY 07/26/22 Pravastatin [Pravachol] 20 mg PO BEDTIME 07/26/22 Followup: NONE,NONE [Primary Care Provider] -
== END 2022-07-26 20:00 | disposition home or self-care (01) ==
LOC: ER 05:30 → ERHOLD 12:01 → 2ND 16:27
PROVIDERS: ADMIT Internal Medicine; ATTEND Internal Medicine
DX: R41.82 Altered mental status, unspecified (principal); N39.0 Urinary tract infection, site not specified; E86.0 Dehydration; Z88.6 Allergy status to analgesic agent; T42.6X6A Underdosing of other antiepileptic and sedative-hypnotic drugs, initial encounter; Z91.A3 Caregiver's unintentional underdosing of patient's medication regimen; Y92.009 Unspecified place in unspecified non-institutional (private) residence as the place of occurrence of the external cause; I10 Essential (primary) hypertension; E78.00 Pure hypercholesterolemia, unspecified; E11.9 Type 2 diabetes mellitus without complications; K21.9 Gastro-esophageal reflux disease without esophagitis; F32.A Depression, unspecified; F03.90 Unspecified dementia, unspecified severity, without behavioral disturbance, psychotic disturbance, mood disturbance, and anxiety; Z20.822 Contact with and (suspected) exposure to COVID-19; Z86.73 Personal history of transient ischemic attack (TIA), and cerebral infarction without residual deficits; R56.9 Unspecified convulsions
CPT/HCPCS: 96365; 96361; 93005; 87088; 85025 ×2; 87086; 80048 ×2; 36415; 87077; 87186; 84484; 70450; 74177; 71045; 99285; 87811; Q9967; J7040; J7030; G0378 ×3; 81003; 81015

== ENCOUNTER 2022-10-10 07:12 | Emergency (ER) | payer OTHER ==
--- OUTSIDE RECORDS SUMMARY | 2022-10-10 07:22 | XMS REPORT | Continuity of Care Document ---
:1935 Author Organization [facility] t Address [address] [place] [address] Care Team Providers Name Role Phone No MD, Pcp [facility] Primary Care Physician Unavailable JUAQUIN MCINTYRE Attending Clinician Unavailable HARINI BETANCOURT Attending Clinician Unavailable HARINI BETANCOURT Attending Clinician Unavailable DAYAMI LOVE Attending Clinician Unavailable Dayami Whitman Attending Clinician [phone] Pob, [facility] Attending Clinician Unavailable Doctor Unassigned, [place] Attending Clinician Unavailable Jamil Macias RN Attending [...] Clinician Unavailable JUAQUIN MCINTYRE Admitting Clinician Unavailable HARINI BETANCOURT Admitting Clinician Unavailable ACACIA DEL TORO Admitting Clinician Unavailable Alverto GABRIEL, Acacia Landaverde Admitting Clinician LUIS E DOMINGUEZ Admitting Clinician Unavailable Payers Payer Name Policy Type Policy Number Effective Date Expiration Date [facility] MEDICARE A B [id number] 1998 00:00:00 [facility] [id number] 2019 HEALTHCARE 00:00:00 MEDICARE PART A \\T\\ [id number] 1998 B 00:00:00 Problems Condition Condition Condition Status Onset Resolution Last Treating Co mments Source Name Details Category Date Date Treatment Clinician Date Sick sinus Sick sinus Disease Active U nivers syndrome syndrome 10-07 ity of 00:00: [place] [facility] Symptomati Symptomati Disease Active U nivers c c 10-06 ity of bradycardi bradycardi [place] 00 [place] Sinus Sinus Disease Active Overview: Univer s pause pause 09-13 Formattin ity of 00:00: g of this 00 note Medical might be Branch different from the original. Added automatic ally from request for surgery [id number] Syncope Syncope Disease Active Overview: Univ ers and and 09-13 Formattin ity of collapse collapse 00:00: g of this [place] as 00 note Medical might be Branch different from the original. 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 Added automatic ally from request for surgery [id number] Acute Acute Disease Active [facility] [...] Formattin ity of 00:00: g of this [place] 00 note Medical might be Branch different [...] of and and 00:00: g of this [place] radiculiti radiculiti 00 note Me dical s, s, might be Branch unspecifie unspecifie different d d from the original. Cervical radiculop athy Osteoarthr Osteoarthr Disease Active Overview : Univers itis itis 12-04 Formattin ity of 00:00: g of this [place] 00 note Medical might be Branch different from the original. 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 Chronic Chronic Disease Active 2005-09 Univers depressive depressive 1-15 it y of personalit personalit 00:00: [place] y disorder y disorder 00 Me dical Branch HLD HLD Disease Active 2005-09 Overview: Univer s (hyperlipi (hyperlipi 1-15 Formattin ity of demia) demia) 00:00: g of this [place] 00 note Medical might be Branch different from the original. 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 Allergies, Adverse Reactions, Alerts Allergy Allergy [...] 00 Center s MEPERIDI DRUG Active Unknown-Cmnt 2007-0 Un teo [...] Natural father High blood pressure C HI [facility] Social History Social Habit Start Date Stop Date Quantity Comments Source History SDOH [facility] Alcohol Binge Medical Nataliia ter History SDOH [facility] Alcohol Comment Medical C enter History SDOH [facility] Alcohol Std Drinks Medica l Center History SDOH Social Unive rsity of [facility] Med ical Together Branch History SDOH Social Unive rsity of [facility] Medical Branch History SDOH Social Unive rsity of [facility] Medical Membership Branch History SDOH Social Unive rsity of [facility] Medical Meetings Branch Exposure to 2022-09-26 2022-10-06 Not sure University of SARS-CoV-2 (event) 00:00:00 06:19:00 [place] [facility] History SDOH 2022-10-06 2022-10-06 2 University o f Transport Med 00:00:00 00:00:00 [place] Medic al Branch History SDOH 2022-10-06 2022-10-06 2 University o f Transport Non-Med 00:00:00 00:00:00 [place] M edical Branch History SDOH Social 2022-10-06 2022-10-06 5 Unive rsity of Connections Phone 00:00:00 00:00:00 [place] M edical Branch History SDOH Social 2022-10-06 2022-10-06 5 Unive rsity of [facility] Living 00:00:00 00:00:00 [place] [facility] History SDOH 2022-10-06 2022-10-06 0 University o f Physical Activity 00:00:00 00:00:00 [place] M edical DPW Branch History SDOH 2022-10-06 2022-10-06 0 University o f Physical Activity 00:00:00 00:00:00 [place] M edical MPS Branch History SDNJ 2022-10-06 2022-10-06 5 University o f Financial 00:00:00 00:00:00 [place] [facility] History SDNJ Food 2022-10-06 2022-10-06 1 Univers ity of Worry 00:00:00 00:00:00 [place] [facility] History SDOH Food 2022-10-06 2022-10-06 1 Univers ity of Scarcity 00:00:00 00:00:00 [place] [facility] History SDNJ 2020-03-27 2020-03-[address] [facility] Alcohol Frequency 00:00:00 00:00:00 [facility] Tobacco use and 2020-03-26 2020-03-[address] [facility] kes exposure 00:00:00 00:00:00 [facility] Alcohol intake 2020-03-26 2020-03-[address] [facility] 00:00:00 00:00:00 non-drinker of Medical Ce nter alcohol (finding) Sex Assigned At [address] [facility] 00:00[facility]00 [facility] Smoking Status Start Date Stop Date Source Never smoked tobacco [facility] Medications Ordered Filled Start Stop Current Ordering Indication Dosage Frequency Signature Comments Components Source Medication Medication Date Date Medication? Clinician (SIG) Name Name amLODIPine Yes 5mg Take 5 mg Un teo 5 mg tablet 10-08 by mouth ity of 13:19: at [place] [address] bedtime. Medical Branch aspirin 81 2022-0 Yes 81mg Take 81 mg U nivers mg EC 10-08 by mouth ity of tablet 13:19: in the [place] [address] morning. Medical Branch lisinopriL 2022-0 Yes 20mg Take 20 mg U nivers 20 mg 10-08 by mouth ity of tablet 13:19: in the [place] [address] morning Medical and 20 mg Branch in the evening. metFORMIN 2022-0 Yes 500mg Take 500 Uni vers 500 mg - mg by ity of tablet 13:19: mouth in [place] 28 the Medical morning Branch and 500 mg in the evening. Take with meals. pantoprazol 0 Yes 40mg Take 40 mg Univers e 10-08 by mouth ity of (PROTONIX) 13:19: in the [place] 20 mg EC morning. Medical tablet Branch tamsulosin 0 Yes Take by [facility] ers (FLOMAX) 10-08 mouth ity of 0.4 mg 24 13:19: daily. [place] hr capsule 28 Medical Branch FLUoxetine 0 Yes 20mg Take 20 mg U nivers 20 mg 10-08 by mouth ity of capsule 13:19: in the [place] [address] morning. Medical Branch gabapentin 2022-0 Yes 300mg Take 300 Un teo 300 mg - mg by ity of capsule 13:19: mouth 2 [place] [address] (two) Medical times Branch daily as needed. levETIRAcet 2022-0 Yes 250mg Take 250 U nivers am (KEPPRA) - mg by ity of 250 mg 13:19: mouth in [place] tablet 28 the Medical morning Branch and 250 mg in the evening. memantine 2022-0 Yes 10mg Take 10 mg Un teo 10 mg 10-08 by mouth ity of tablet 13:19: in the [place] [address] morning Medical and 10 mg Branch in the evening. simvastatin 2022-0 Yes 20mg Take 20 mg Univers 20 mg 10-08 by mouth ity of tablet 13:19: at [place] [address] bedtime. Medical Branch Sliding 2022-0 Yes Subcutaneo [facility] ers Scale 10-08 us, TID ity of Insulin - 03:45: MEALS+HS, [place] as Lispro 00 First dose Medical (HumaLOG) + (after Branch Fsbg last Testing modificati on) on Mon10/07/22 at 2145, Until Discontinu ed, Routine melatonin Yes 3mg 3 mg, Univers (MELATIN) 10-08 Oral, QHS, ity of tablet 3 mg 03:45: First dose [place] on Mon Medical 10/07/22 at Branch 2145, Until Discontinu ed, Routine dextrose Yes 250mL 250 mL, IV Un teo 10% (D10W) 10-08 Infusion, ity of bolus 03:32: PRN - SEE [place] infusion 30 INSTRUCTIO Medic al 250 mL NS, Branch Administer over 60 Minutes, Other, If blood glucose is < or = 70 mg/dL and patient is unable to swallow or has mental status changes, Starting on Mon10/07/22 at 2132
If blood glucose is < or = [...] glucose is < 80 mg/dL, repeat.
glucagon Yes 1mg 1 mg, Univers (GLUCAGEN 10-08 Intramuscu ity of DIAGNOSTIC 03:32: lar, PRN, [place] KIT) 30 Starting Medical injection 1 on Mon Branch mg 10/07/22 at 2132, Until Discontinu ed, YOKO, Blood Glucose < or = 70 mg/dL and patient is NPO, unable to swallow or has mental changes. sennosides- Yes 1{tbl} 1 tablet, Univers docusate 10-07 Oral, ity of sodium 15:00: DAILY, [place] (SENOKOT-S) 00 First dose Me dical 8.6-50 mg on Mon Branch per tablet 10/07/22 at 1 tablet 0900, Until Discontinu ed, Routine tamsulosin 2022-0 Yes .4mg 0.4 mg, Univ ers (FLOMAX) 10-07 Oral, ity of capsule 0.4 15:00: DAILY, [place] mg 00 First dose Medical on Mon10/07/22 at 0900, Until Discontinu ed, Routine pantoprazol 2022-0 Yes 40mg 40 mg, Univ ers e 10-07 Oral, ity of (PROTONIX) 15:00: DAILY, [place] EC tablet 00 First dose Medi joyce 40 mg on Mon10/07/22 at 0900, Until Discontinu ed, Routine FLUoxetine 2022-0 Yes 20mg 20 mg, Unive rs (PROZAC) 10-07 Oral, ity of capsule 20 15:00: DAILY, [place] mg 00 First dose Medical on Mon10/07/22 at 0900, Until Discontinu ed, Routine aspirin EC 0 Yes 81mg 81 mg, Unive rs tablet 81 10-07 Oral, ity of mg 15:00: DAILY, [place] 00 First dose Medical on Mon10/07/22 at 0900, Until Discontinu ed, Routine hydralAZINE 2022-0 2022- No [id number] 10mg 10 mg, Univers (APRESOLINE 10-07 Slow IV ity of ) injection 12:15: 11:26 [place], [place] 10 mg 00 :00 ONCE, 1 Medical dose, On Branch Mon10/07/22 at 0615, STAT simvastatin 2022-0 Yes 20mg 20 mg, Univ ers (ZOCOR) 10-07 Oral, QHS, ity of tablet 20 03:00: [place] mg on [facility] 10/06/22 at Branch 2100, Until Discontinu ed, Routine amLODIPine 2022-0 Yes 5mg 5 mg, Univer s (NORVASC) 10-07 Oral, QHS, ity of tablet 5 mg 03:00: First dose [place] on [facility] 10/06/22 at Branch 2100, Until Discontinu ed, Routine levETIRAcet 2022-0 Yes 250mg 250 mg, Un teo am (KEPPRA) 10-07 Oral, BID, it y of tablet 250 02:00: First dose [place] mg on [facility] 10/06/22 at Branch 2000, Until Discontinu ed, Routine carvediloL 0 202- Yes [id number] 6.25mg Take 1 Univers 6.25 mg 10-07 tablet by ity of tablet 00:00: 05:59 mouth in [place] 00 :00 the Medical morning Branch and 1 tablet in the evening. Take with meals. Do all this for 30 days. lactated 2022- No 500mL at 200 [facility] rs ringers IV 10-06 mL/hr, 500 it y of infusion 20:15: 13:51 mL, [place] 500 mL 00 :00 Intravenou Medical s, ONCE, 1 Branch dose, On [facility] 10/06/22 at 1415, Routine hydralAZINE 2022- No 10mg 10 mg, Uni vers (APRESOLINE 10-06 Slow IV ity of ) injection 20:00: 19:15 [place], [place] 10 mg 00 :00 ONCE, 1 Medical dose, On Branch [facility] 10/06/22 at 1400, STAT carvediloL 0 Yes 6.25mg 6.25 mg, U nivers (COREG) 10-06 Oral, BID ity of tablet 6.25 19:30: MEALS, [place] mg 00 First dose Medical (after Branch last modificati on) on [facility] 10/06/22 at 1330, Until Discontinu ed, Routine lisinopriL Yes 20mg 20 mg, Unive rs (PRINIVIL,Z 10-06 Oral, BID, it y of ESTRIL) 17:45: First dose [place] tablet 20 00 (after Medical mg last Branch modificati on) on [facility] 10/06/22 at 1145, Until Discontinu ed, Routine acetaminoph Yes 650mg 650 mg, Un teo en 10-06 Oral, ity of (TYLENOL) 17:33: Q6HPRN, [place] tablet 650 13 Starting Medic al mg on [facility] Branch 10/06/22 at 1133, Until Discontinu ed, Routine, Pain (scale 1-3) gabapentin 0 Yes 300mg 300 mg, Uni vers (NEURONTIN) 10-06 Oral, ity of capsule 300 17:30: BIDPRN, [place] as mg 49 Starting Medical on [place] Branch 10/06/22 at 1130, Until Discontinu ed, Routine, Pain (scale 4-6) hydralAZINE 2022- No [id number] 10mg 10 mg, Univers (APRESOLINE 10-06 Slow IV ity of ) injection 17:30: 16:31 [place] 10 mg 00 :00 ONCE, 1 Medical dose, On Branch [place] 10/06/22 at 1130, STAT hydralAZINE 2022- No [id number] 10mg Inject 0.5 Univers 20 mg/mL 10-06 mL ity of injection 00:00: 00:00 intravenou [place] 00 :00 sly once Medical now for 1 Branch dose. amitriptyli 2021-09- No [id number] 25mg Take 1 Univers ne 25 mg 0-23 10-31 tablet by ity o f tablet 00:00: 04:59 mouth at [place] 00 :00 bedtime Medical for 7 Branch days. amitriptyli 2021-09- No [id number] 25mg Take 1 Univers ne 25 mg 0-23 10-31 tablet by ity o f tablet 00:00: 04:59 mouth at [place] 00 :00 bedtime Medical for 7 Branch days. amitriptyli 2021-09- No [id number] 25mg Take 1 Univers ne 25 mg 0-23 10-31 tablet by ity o f tablet 00:00: 04:59 mouth at [place] 00 :00 bedtime Medical for 7 Branch days. amitriptyli 2021-09- No [id number] 25mg Take 1 Univers ne 25 mg 0-23 10-31 tablet by ity o f tablet 00:00: 04:59 mouth at [place] 00 :00 bedtime Medical for 7 Branch days. tamsulosin 2021-09 Yes .4mg 0.4 mg, Univ ers (FLOMAX) 0-16 Oral, QHS, ity o f capsule 0.4 02:00: First dose [place] mg 00 on [facility] 06/25/22 Branch at 2100, Until Discontinu ed, Routine amLODIPine 2021-09 Yes 5mg 5 mg, Univer s (NORVASC) 0-16 Oral, QHS, ity of tablet 5 mg 02:00: First dose [place] 00 on [facility] 06/25/22 Branch at 2100, Until Discontinu ed, Routine tamsulosin 2021-09 No .4mg 0.4 mg, Uni vers (FLOMAX) 0-16 10-15 Oral, QHS, ity of capsule 0.4 02:00: 21:09 First dose [place] mg 00 :41 on [facility] 06/25/22 Branch at 2100, Until Discontinu ed, Routine amLODIPine 2021-09 No 5mg 5 mg, Unive rs (NORVASC) 0-16 10-15 Oral, QHS, ity of tablet 5 mg 02:00: 21:09 First dose [place] 00 :41 on [facility] 06/25/22 Branch at 2100, Until Discontinu ed, Routine pantoprazol 2021-09- No [id number] 40mg Take 1 Univers e 0-16 01-15 tablet by ity of (PROTONIX) 00:00: 05:59 mouth in [place] 40 mg EC 00 :00 the Medical tablet morning Branch for 90 days. vitamin 2021-09- No [id number] 1000ug Take 1 U nivers B-12 1,000 0-16 01-15 tablet by ity of mcg tablet 00:00: 05:59 mouth in [place] 00 :00 the Medical morning Branch for 90 days. pantoprazol 2021-09- No [id number] 40mg Take 1 Univers e 0-16 01-15 tablet by ity of (PROTONIX) 00:00: 05:59 mouth in [place] 40 mg EC 00 :00 the Medical tablet morning Branch for 90 days. vitamin 2021-09- No [id number] 1000ug Take 1 U nivers B-12 1,000 0-16 01-15 tablet by ity of mcg tablet 00:00: 05:59 mouth in [place] 00 :00 the Medical morning Branch for 90 days. pantoprazol 2021-09- No [id number] 40mg Take 1 Univers e 0-16 01-15 tablet by ity of (PROTONIX) 00:00: 05:59 mouth in [place] 40 mg EC 00 :00 the Medical tablet morning Branch for 90 days. vitamin 2021-09- No [id number] 1000ug Take 1 U nivers B-12 1,000 0-16 01-15 tablet by ity of mcg tablet 00:00: 05:59 mouth in [place] 00 :00 the Medical morning Branch for 90 days. pantoprazol 2021-09- No [id number] 40mg Take 1 Univers e 0-16 01-15 tablet by ity of (PROTONIX) 00:00: 05:59 mouth in [place] 40 mg EC 00 :00 the Medical tablet morning Branch for 90 days. vitamin 2021-09- No [id number] 1000ug Take 1 U nivers B-12 1,000 0-16 01-15 tablet by ity of mcg tablet 00:00: 05:59 mouth in [place] 00 :00 the Medical morning Branch for 90 days. pantoprazol 2021-09- No [id number] 40mg Take 1 Univers e 0-16 01-15 tablet by ity of (PROTONIX) 00:00: 05:59 mouth in [place] 40 mg EC 00 :00 the Medical tablet morning Branch for 90 days. vitamin 2021-09- No [id number] 1000ug Take 1 U nivers B-12 1,000 0-16 01-15 tablet by ity of mcg tablet 00:00: 05:59 mouth in [place] 00 :00 the Medical morning Branch for 90 days. pantoprazol 2021-09- No [id number] 40mg Take 1 Univers e 0-16 01-15 tablet by ity of (PROTONIX) 00:00: 05:59 mouth in [place] 40 mg EC 00 :00 the Medical tablet morning Branch for 90 days. vitamin 2021-09- No [id number] 1000ug Take 1 U nivers B-12 1,000 0-16 01-15 tablet by ity of mcg tablet 00:00: 05:59 mouth in [place] 00 :00 the Medical morning Branch for 90 days. pantoprazol 2021-09- No [id number] 40mg Take 1 Univers e 0-16 01-15 tablet by ity of (PROTONIX) 00:00: 05:59 mouth in [place] 40 mg EC 00 :00 the Medical tablet morning Branch for 90 days. vitamin 2021-09- No [id number] 1000ug Take 1 U nivers B-12 1,000 0-16 01-15 tablet by ity of mcg tablet 00:00: 05:59 mouth in [place] 00 :00 the Medical morning Branch for 90 days. pantoprazol 2021-09- No [id number] 40mg Take 1 Univers e 0-16 01-15 tablet by ity of (PROTONIX) 00:00: 05:59 mouth in [place] 40 mg EC 00 :00 the Medical tablet morning Branch for 90 days. vitamin 2021-09- No [id number] 1000ug Take 1 U nivers B-12 1,000 0-16 01-15 tablet by ity of mcg tablet 00:00: 05:59 mouth in [place] 00 :00 the Medical morning Branch for 90 days. pantoprazol 2021-09- No [id number] 40mg Take 1 Univers e 0-16 01-15 tablet by ity of (PROTONIX) 00:00: 05:59 mouth in [place] 40 mg EC 00 :00 the Medical tablet morning Branch for 90 days. vitamin 2021-09- No [id number] 1000ug Take 1 U nivers B-12 1,000 0-16 01-15 tablet by ity of mcg tablet 00:00: 05:59 mouth in [place] 00 :00 the Medical morning Branch for 90 days. pantoprazol 2021-09- No [id number] 40mg Take 1 Univers e 0-16 01-15 tablet by ity of (PROTONIX) 00:00: 05:59 mouth in [place] 40 mg EC 00 :00 the Medical tablet morning Branch for 90 days. vitamin 2021-09- No [id number] 1000ug Take 1 U nivers B-12 1,000 [...] infusion 2 ONCE, 1 g dose, On [facility] 06/25/22 at 0900, Routine vitamin 2021-09- No 1000ug 1,000 mcg, U nivers B-12 0-15 10-15 Oral, ity of (CYANOCOBAL 14:00: 21:09 DAILY, [place] as CODY) 00 :41 First dose Medical tablet (after Branch 1,000 mcg last modificati on) on [facility] 06/25/22 at 0900, Until Discontinu ed, Routine KCL 2021-09- No 40meq 40 mEq, Univers (KLOR-CON 0-15 10-15 Oral, ity of M20) tablet 13:45: 13:34 ONCE, 1 [place] 40 mEq 00 :00 dose, On Medical [facility] 06/25/22 at 0845, Routine levETIRAcet 2021-09 Yes 250mg 250 mg, Un teo am (KEPPRA) 0-15 Oral, BID, it y of tablet 250 13:00: First dose [place] mg 00 on [facility] 06/25/22 Branch at 0800, Until Discontinu ed, Routine levETIRAcet 2021-09- No 250mg 250 mg, U nivers am (KEPPRA) 0-15 10-15 Oral, BID, i ty of tablet 250 13:00: 21:09 First dose [place] mg 00 :41 on [facility] 06/25/22 Branch at 0800, Until Discontinu ed, Routine PEPCID 2021-09- No prn Univers MG ORAL TAB [...] TAB 006-25 Entered ity of 12:45: 00:00 [place] 24 :00 Medical Branch M-VIT ORAL 2021-09- No None Univer s 0-15 06-25 Entered ity of 12:45: 00:00 [place] 24 :00 Medical Branch metFORMIN 2021-09- No [id number] 500mg Take 1 Univers 500 mg 0-15 - tablet by ity of tablet 00:00: 05:59 mouth in [place] 00 :00 the Medical morning Branch and 1 tablet in the evening. Take with meals. Do all this for 90 days. tamsulosin 2021-09- No [id number] .4mg Take 1 Univers 0.4 mg 24 09-24 capsule by ity of hr capsule 00:00: 05:59 mouth at [facility] 00 :00 bedtime [facility] for 90 Branch days. amLODIPine 2021-09- No [id number] 5mg Take 1 Univers 5 mg tablet 009-24 tablet by it y of 00:00: 05:59 mouth at [place] 00 :00 [facility] for 90 Branch days. levETIRAcet 2021-09- No [id number] 250mg Take 1 Univers am 250 mg 0-09-24 tablet by ity of tablet 00:00: 05:59 mouth in [place] 00 :00 the Medical morning Branch and 1 tablet in the evening. Do all this for 90 days. lisinopriL 2021-09- No [id number] 20mg Take 1 Univers 20 mg 0-15 - tablet by ity of tablet 00:00: 05:59 mouth in [place] 00 :00 the Medical morning Branch and 1 tablet in the evening. Do all this for 90 days. FLUoxetine 2021-09- No [id number] 20mg Take 1 Univers 20 mg 0-15 - capsule by ity of capsule 00:00: 05:59 mouth in [place] 00 :00 the [facility] morning [place] for 90 days. memantine 2021-09- No [id number] 10mg Take 1 U nivers 10 mg 0-15 - tablet by ity of tablet 00:00: 05:59 mouth in [place] 00 :00 the Medical morning Branch and 1 tablet in the evening. Do all this for 90 days. pyridostigm 2021-09- No [id number] 60mg Take 1 Univers ine 60 mg 0-15 - tablet by ity of tablet 00:00: 05:59 mouth as [place] 00 :00 needed for Medical Other Branch (HYPOTENSI ON) for up to 90 days. simvastatin 2021-09- No [id number] 20mg Take 1 Univers 20 mg 0-15 -14 tablet by ity of tablet 00:00: 05:59 mouth at [place] 00 :00 bedtime Medical for 90 Branch days. aspirin 81 2021-09- No [id number] 81mg Take 1 Univers mg chewable 0-25 09- tablet by it y of tablet 00:00: 05:59 mouth in [place] 00 :00 the [facility] morning [place] for 90 days. metFORMIN 2021-09- No [id number] 500mg Take 1 Univers 500 mg 009-24 tablet by ity of tablet 00:00: 05:59 mouth in [place] 00 :00 the Medical morning Branch and 1 tablet in the evening. Take with meals. Do all this for 90 days. tamsulosin 2021-09- No [id number] .4mg Take 1 Univers 0.4 mg 24 09-24 capsule by ity of hr capsule 00:00: 05:59 mouth at [facility] 00 :00 bedtime [facility] for 90 Branch days. amLODIPine 2021-09- No [id number] 5mg Take 1 Univers 5 mg tablet 09-24 tablet by it y of 00:00: 05:59 mouth at [place] 00 :00 bedtime [facility] for 90 Branch days. levETIRAcet 2021-09- No [id number] 250mg Take 1 Univers am 250 mg 0- tablet by ity of tablet 00:00: 05:59 mouth in [place] 00 :00 the Medical morning Branch and 1 tablet in the evening. Do all this for 90 days. lisinopriL 2021-09- No [id number] 20mg Take 1 Univers 20 mg 0-15 -14 tablet by ity of tablet 00:00: 05:59 mouth in [place] 00 :00 the Medical morning Branch and 1 tablet in the evening. Do all this for 90 days. FLUoxetine 2021-09- No [id number] 20mg Take 1 Univers 20 mg 0-15 -14 capsule by ity of capsule 00:00: 05:59 mouth in [place] 00 :00 the Medical morning Branch for 90 days. memantine 2021-09- No [id number] 10mg Take 1 U nivers 10 mg 0-15 -14 tablet by ity of tablet 00:00: 05:59 mouth in [place] 00 :00 the Medical morning Branch and 1 tablet in the evening. Do all this for 90 days. pyridostigm 2021-09- No [id number] 60mg Take 1 Univers ine 60 mg 0-15 -14 tablet by ity of tablet 00:00: 05:59 mouth as [place] 00 :00 needed for Medical Other Branch (HYPOTENSI ON) for up to 90 days. simvastatin 2021-09- No [id number] 20mg Take 1 Univers 20 mg 0-15 -14 tablet by ity of tablet 00:00: 05:59 mouth at [place] 00 :00 bedtime Medical for 90 Branch days. aspirin 81 2021-09- No [id number] 81mg Take 1 Univers mg chewable 0- tablet by it y of tablet 00:00: 05:59 mouth in [place] 00 :00 the [facility] morning [place] for 90 days. KCL 20 mEq 2021-09- No [id number] 40meq Take 2 Univers tablet 009-24 tablets by ity of 00:00: 05:59 mouth in [place] 00 :00 the Medical morning Branch for 90 days. metFORMIN 2021-09- No [id number] 500mg Take 1 Univers 500 mg 009-24 tablet by ity of tablet 00:00: 05:59 mouth in [place] 00 :00 the Medical morning Branch and 1 tablet in the evening. Take with meals. Do all this for 90 days. tamsulosin 2021-09- No [id number] .4mg Take 1 [facility] 0.4 mg 24 0-25 09- capsule by ity of hr capsule 00:00: 05:59 mouth at [place] 00 :00 bedtime Medical for 90 Branch days. amLODIPine 2021-09- No [id number] 5mg Take 1 [facility] 5 mg tablet 009-24 tablet by it y of 00:00: 05:59 mouth at [place] 00 :00 bedtime Medical for 90 Branch days. levETIRAcet 2021-09- No [id number] 250mg Take 1 [facility] am 250 mg 0-15 -14 tablet by ity of tablet 00:00: 05:59 mouth in [place] 00 :00 the Medical morning Branch and 1 tablet in the evening. Do all this for 90 days. lisinopriL 2021-09- No [id number] 20mg Take 1 [facility] 20 mg 0-15 -14 tablet by ity of tablet 00:00: 05:59 mouth in [place] 00 :00 the Medical morning Branch and 1 tablet in the evening. Do all this for 90 days. FLUoxetine 2021-09- No [id number] 20mg Take 1 [facility] 20 mg 0-15 - capsule by ity of capsule 00:00: 05:59 mouth in [place] 00 :00 the [facility] morning [place] for 90 days. memantine 2021-09- No [id number] 10mg Take 1 U nivers 10 mg 009-24 tablet by ity of tablet 00:00: 05:59 mouth in [place] 00 :00 the Medical morning Branch and 1 tablet in the evening. Do all this for 90 days. pyridostigm 2021-09- No [id number] 60mg Take 1 [facility] ine 60 mg 0-25 09- tablet by ity of tablet 00:00: 05:59 mouth as [place] 00 :00 needed for Medical Other Branch (HYPOTENSI ON) for up to 90 days. simvastatin 2021-09- No [id number] 20mg Take 1 [facility] 20 mg 0-15 -14 tablet by ity of tablet 00:00: 05:59 mouth at [place] 00 :00 bedtime Medical for 90 Branch days. aspirin 81 2021-09- No [id number] 81mg Take 1 [facility] mg chewable 0-15 -14 tablet by it y of tablet 00:00: 05:59 mouth in [place] 00 :00 the Medical morning Branch for 90 days. KCL 20 mEq 2021-09- No [id number] 40meq Take 2 [facility] tablet 0-15 -14 tablets by ity of 00:00: 05:59 mouth in [place] 00 :00 the Medical morning Branch for 90 days. metFORMIN 2021-09- No [id number] 500mg Take 1 [facility] 500 mg 0-15 -14 tablet by ity of tablet 00:00: 05:59 mouth in [place] 00 :00 the Medical morning Branch and 1 tablet in the evening. Take with meals. Do all this for 90 days. tamsulosin 2021-09- No [id number] .4mg Take 1 [facility] 0.4 mg 24 0-15 -14 capsule by ity of hr capsule 00:00: 05:59 mouth at [facility] 00 :00 bedtime Medical for 90 Branch days. amLODIPine 2021-09- No [id number] 5mg Take 1 [facility] 5 mg tablet 0-14 tablet by it y of 00:00: 05:59 mouth at [place] 00 :00 bedtime Medical for 90 Branch days. levETIRAcet 2021-09- No [id number] 250mg Take 1 [facility] am 250 mg 0-25 09-14 tablet by ity of tablet 00:00: 05:59 mouth in [place] 00 :00 the Medical morning Branch and 1 tablet in the evening. Do all this for 90 days. lisinopriL 2021-09- No [id number] 20mg Take 1 [facility] 20 mg 0-15 -14 tablet by ity of tablet 00:00: 05:59 mouth in [place] 00 :00 the Medical morning Branch and 1 tablet in the evening. Do all this for 90 days. FLUoxetine 2021-09- No [id number] 20mg Take 1 [facility] 20 mg 0-15 -14 capsule by ity of capsule 00:00: 05:59 mouth in [place] 00 :00 the Medical morning Branch for 90 days. memantine 2021-09- No [id number] 10mg Take 1 U nivers 10 mg 0-15 -14 tablet by ity of tablet 00:00: 05:59 mouth in [place] 00 :00 the Medical morning Branch and 1 tablet in the evening. Do all this for 90 days. pyridostigm 2021-09- No [id number] 60mg Take 1 [facility] ine 60 mg 0-15 -14 tablet by ity of tablet 00:00: 05:59 mouth as [place] 00 :00 needed for Medical Other Branch (HYPOTENSI ON) for up to 90 days. simvastatin 2021-09- No [id number] 20mg Take 1 [facility] 20 mg 0-15 -14 tablet by ity of tablet 00:00: 05:59 mouth at [place] 00 :00 bedtime Medical for 90 Branch days. aspirin 81 2021-09- No [id number] 81mg Take 1 [facility] mg chewable 0-15 -14 tablet by it y of tablet 00:00: 05:59 mouth in [place] 00 :00 the Medical morning Branch for 90 days. KCL 20 mEq 2021-09- No [id number] 40meq Take 2 [facility] tablet 0-15 -14 tablets by ity of 00:00: 05:59 mouth in [place] 00 :00 the Medical morning [place] for 90 days. metFORMIN 2021-09- No [id number] 500mg Take 1 [facility] 500 mg 0-15 -14 tablet by ity of tablet 00:00: 05:59 mouth in [place] 00 :00 the Medical morning Branch and 1 tablet in the evening. Take with meals. Do all this for 90 days. tamsulosin 2021-09- No [id number] .4mg Take 1 [facility] 0.4 mg 24 009-24 capsule by ity of hr capsule 00:00: 05:59 mouth at [facility] 00 :00 bedtime Medical for 90 Branch days. amLODIPine 2021-09- No [id number] 5mg Take 1 [facility] 5 mg tablet 009-24 tablet by it y of 00:00: 05:59 mouth at [place] 00 :00 bedtime [facility] for 90 Branch days. levETIRAcet 2021-09- No [id number] 250mg Take 1 [facility] am 250 mg 0- tablet by ity of tablet 00:00: 05:59 mouth in [place] 00 :00 the Medical morning Branch and 1 tablet in the evening. Do all this for 90 days. lisinopriL 2021-09- No [id number] 20mg Take 1 [facility] 20 mg 0-15 -14 tablet by ity of tablet 00:00: 05:59 mouth in [place] 00 :00 the Medical morning Branch and 1 tablet in the evening. Do all this for 90 days. FLUoxetine 2021-09- No [id number] 20mg Take 1 [facility] 20 mg 0-15 -14 capsule by ity of capsule 00:00: 05:59 mouth in [place] 00 :00 the [facility] morning Branch for 90 days. memantine 2021-09- No [id number] 10mg Take 1 U nivers 10 mg 009-24 tablet by ity of tablet 00:00: 05:59 mouth in [place] 00 :00 the Medical morning Branch and 1 tablet in the evening. Do all this for 90 days. pyridostigm 2021-09- No [id number] 60mg Take 1 [facility] ine 60 mg 09-24 tablet by ity of tablet 00:00: 05:59 mouth as [place] 00 :00 needed for Medical Other Branch (HYPOTENSI ON) for up to 90 days. simvastatin 2021-09- No [id number] 20mg Take 1 [facility] 20 mg 09-24 tablet by ity of tablet 00:00: 05:59 mouth at [place] 00 :00 bedtime Medical for 90 Branch days. aspirin 81 2021-09- No [id number] 81mg Take 1 [facility] mg chewable 09-24 tablet by it y of tablet 00:00: 05:59 mouth in [place] 00 :00 the [facility] morning [place] for 90 days. KCL 20 mEq 2021-09- No [id number] 40meq Take 2 [facility] tablet 09-24 tablets by ity of 00:00: 05:59 mouth in [place] 00 :00 the [facility] morning [place] for 90 days. metFORMIN 2021-09- No [id number] 500mg Take 1 [facility] 500 mg 09-24 tablet by ity of tablet 00:00: 05:59 mouth in [place] 00 :00 the Medical morning Branch and 1 tablet in the evening. Take with meals. Do all this for 90 days. tamsulosin 2021-09- No [id number] .4mg Take 1 [facility] 0.4 mg 24 09-24 capsule by ity of hr capsule 00:00: 05:59 mouth [place] 00 :00 bedtime Medical for 90 Branch days. amLODIPine 2021-09- No [id number] 5mg Take 1 [facility] 5 mg tablet 09-24 tablet by it y of 00:00: 05:59 mouth at [place] 00 :00 bedtime Medical for 90 Branch days. levETIRAcet 2021-09- No [id number] 250mg Take 1 [facility] am 250 mg 0-15 01-14 tablet by ity of tablet 00:00: 05:59 mouth in [place] 00 :00 the Medical morning Branch and 1 tablet in the evening. Do all this for 90 days. lisinopriL 2021-09- No [id number] 20mg Take 1 [facility] 20 mg 0-15 -14 tablet by ity of tablet 00:00: 05:59 mouth in [place] 00 :00 the Medical morning Branch and 1 tablet in the evening. Do all this for 90 days. FLUoxetine 2021-09- No [id number] 20mg Take 1 [facility] 20 mg 0-15 -14 capsule by ity of capsule 00:00: 05:59 mouth in [place] 00 :00 the Medical morning Branch for 90 days. memantine 2021-09- No [id number] 10mg Take 1 U nivers 10 mg 0-15 -14 tablet by ity of tablet 00:00: 05:59 mouth in [place] 00 :00 the Medical morning Branch and 1 tablet in the evening. Do all this for 90 days. pyridostigm 2021-09- No [id number] 60mg Take 1 [facility] ine 60 mg 0-15 -14 tablet by ity of tablet 00:00: 05:59 mouth as [place] 00 :00 needed for Medical Other Branch (HYPOTENSI ON) for up to 90 days. simvastatin 2021-09- No [id number] 20mg Take 1 [facility] 20 mg 0-15 -14 tablet by ity of tablet 00:00: 05:59 mouth at [place] 00 :00 bedtime Medical for 90 Branch days. aspirin 81 2021-09- No [id number] 81mg Take 1 [facility] mg chewable 0-15 -14 tablet by it y of tablet 00:00: 05:59 mouth in [place] 00 :00 the Medical morning Branch for 90 days. KCL 20 mEq 2021-09- No [id number] 40meq Take 2 [facility] tablet 0-15 -14 tablets by ity of 00:00: 05:59 mouth in [place] 00 :00 the Medical morning Branch for 90 days. metFORMIN 2021-09- No [id number] 500mg Take 1 [facility] 500 mg 0-15 -14 tablet by ity of tablet 00:00: 05:59 mouth in [place] 00 :00 the Medical morning Branch and 1 tablet in the evening. Take with meals. Do all this for 90 days. tamsulosin 2021-09- No [id number] .4mg Take 1 [facility] 0.4 mg 24 0-15 -14 capsule by ity of hr capsule 00:00: 05:59 mouth at [place] 00 :00 bedtime Medical for 90 Branch days. amLODIPine 2021-09- No [id number] 5mg Take 1 [facility] 5 mg tablet 0-14 tablet by it y of 00:00: 05:59 mouth at [place] 00 :00 bedtime Medical for 90 Branch days. levETIRAcet 2021-09- No [id number] 250mg Take 1 [facility] am 250 mg 0-14 tablet by ity of tablet 00:00: 05:59 mouth in [place] 00 :00 the Medical morning Branch and 1 tablet in the evening. Do all this for 90 days. lisinopriL 2021-09- No [id number] 20mg Take 1 [facility] 20 mg 0-15 - tablet by ity of tablet 00:00: 05:59 mouth in [place] 00 :00 the Medical morning Branch and 1 tablet in the evening. Do all this for 90 days. FLUoxetine 2021-09- No [id number] 20mg Take 1 [facility] 20 mg 0-15 -14 capsule by ity of capsule 00:00: 05:59 mouth in [place] 00 :00 the Medical morning Branch for 90 days. memantine 2021-09- No [id number] 10mg Take 1 U nivers 10 mg 015 -14 tablet by ity of tablet 00:00: 05:59 mouth in [place] 00 :00 the Medical morning Branch and 1 tablet in the evening. Do all this for 90 days. pyridostigm 2021-09- No [id number] 60mg Take 1 [facility] ine 60 mg 0-15 -14 tablet by ity of tablet 00:00: 05:59 mouth as [place] 00 :00 needed for Medical Other Branch (HYPOTENSI ON) for up to 90 days. simvastatin 2021-09- No [id number] 20mg Take 1 [facility] 20 mg 0-15 -14 tablet by ity of tablet 00:00: 05:59 mouth at [place] 00 :00 bedtime Medical for 90 Branch days. aspirin 81 2021-09- No [id number] 81mg Take 1 [facility] mg chewable 0- tablet by it y of tablet 00:00: 05:59 mouth in [place] 00 :00 the Medical morning Branch for 90 days. KCL 20 mEq 2021-09- No [id number] 40meq Take 2 [facility] tablet 015 -14 tablets by ity of 00:00: 05:59 mouth in [place] 00 :00 the Medical morning Branch for 90 days. metFORMIN 2021-09- No [id number] 500mg Take 1 [facility] 500 mg 0- tablet by ity of tablet 00:00: 05:59 mouth in [place] 00 :00 the Medical morning Branch and 1 tablet in the evening. Take with meals. Do all this for 90 days. tamsulosin 2021-09- No [id number] .4mg Take 1 [facility] 0.4 mg 24 09-24 capsule by ity of hr capsule 00:00: 05:59 mouth at [facility] 00 :00 bedtime Medical for 90 Branch days. amLODIPine 2021-09- No [id number] 5mg Take 1 [facility] 5 mg tablet 09-24 tablet by it y of 00:00: 05:59 mouth at [place] 00 :00 bedtime [facility] for 90 Branch days. levETIRAcet 2021-09- No [id number] 250mg Take 1 [facility] am 250 mg 09-24 tablet by ity of tablet 00:00: 05:59 mouth in [place] 00 :00 the Medical morning Branch and 1 tablet in the evening. Do all this for 90 days. lisinopriL 2021-09- No [id number] 20mg Take 1 [facility] 20 mg 0- tablet by ity of tablet 00:00: 05:59 mouth in [place] 00 :00 the Medical morning Branch and 1 tablet in the evening. Do all this for 90 days. FLUoxetine 2021-09- No [id number] 20mg Take 1 [facility] 20 mg 0-25 09- capsule by ity of capsule 00:00: 05:59 mouth in [place] 00 :00 the [facility] morning [place] for 90 days. memantine 2021-09- No [id number] 10mg Take 1 U nivers 10 mg 0-25 09- tablet by ity of tablet 00:00: 05:59 mouth in [place] 00 :00 the Medical morning Branch and 1 tablet in the evening. Do all this for 90 days. pyridostigm 2021-09- No [id number] 60mg Take 1 [facility] ine 60 mg 0- tablet by ity of tablet 00:00: 05:59 mouth as [place] 00 :00 needed for Medical Other Branch (HYPOTENSI ON) for up to 90 days. simvastatin 2021-09- No [id number] 20mg Take 1 [facility] 20 mg 0- tablet by ity of tablet 00:00: 05:59 mouth at [place] 00 :00 bedtime Medical for 90 Branch days. aspirin 81 2021-09- No [id number] 81mg Take 1 [facility] mg chewable 009-24 tablet by it y of tablet 00:00: 05:59 mouth in [place] 00 :00 the Medical morning Branch for 90 days. KCL 20 mEq 2021-09- No [id number] 40meq Take 2 [facility] tablet 009-24 tablets by ity of 00:00: 05:59 mouth in [place] 00 :00 the Medical morning Branch for 90 days. metFORMIN 2021-09- No [id number] 500mg Take 1 [facility] 500 mg 009-24 tablet by ity of tablet 00:00: 05:59 mouth in [place] 00 :00 the Medical morning Branch and 1 tablet in the evening. Take with meals. Do all this for 90 days. tamsulosin 2021-09- No [id number] .4mg Take 1 [facility] 0.4 mg 24 09-24 capsule by ity of hr capsule 00:00: 05:59 mouth at [facility] 00 :00 bedtime Medical for 90 Branch days. amLODIPine 2021-09- No [id number] 5mg Take 1 [facility] 5 mg tablet 09-24 tablet by it y of 00:00: 05:59 mouth at [place] 00 :00 bedtime Medical for 90 Branch days. levETIRAcet 2021-09- No [id number] 250mg Take 1 [facility] am 250 mg 009-24 tablet by ity of tablet 00:00: 05:59 mouth in [place] 00 :00 the Medical morning Branch and 1 tablet in the evening. Do all this for 90 days. lisinopriL 2021-09- No [id number] 20mg Take 1 [facility] 20 mg 0-15 -14 tablet by ity of tablet 00:00: 05:59 mouth in [place] 00 :00 the Medical morning Branch and 1 tablet in the evening. Do all this for 90 days. FLUoxetine 2021-09- No [id number] 20mg Take 1 [facility] 20 mg 0-15 -14 capsule by ity of capsule 00:00: 05:59 mouth in [place] 00 :00 the [facility] for 90 days. memantine 2021-09- No [id number] 10mg Take 1 U nivers 10 mg 0-15 -14 tablet by ity of tablet 00:00: 05:59 mouth in [place] 00 :00 the [facility] morning [place] and 1 tablet in the evening. Do all this for 90 days. pyridostigm 2021-09- No [id number] 60mg Take 1 [facility] ine 60 mg 0-15 -14 tablet by ity of tablet 00:00: 05:59 mouth as [place] 00 :00 needed for Medical Other Branch (HYPOTENSI ON) for up to 90 days. simvastatin 2021-09- No [id number] 20mg Take 1 [facility] 20 mg 0-15 -14 tablet by ity of tablet 00:00: 05:59 mouth at [place] 00 :00 bedtime Medical for 90 Branch days. aspirin 81 2021-09- No [id number] 81mg Take 1 [facility] mg chewable 0-15 -14 tablet by it y of tablet 00:00: 05:59 mouth in [place] 00 :00 the [facility] for 90 days. KCL 20 mEq 2021-09- No [id number] 40meq Take 2 [facility] tablet 0-15 -14 tablets by ity of 00:00: 05:59 mouth in [place] 00 :00 the [facility] morning [place] for 90 days. metFORMIN 2021-09- No [id number] 500mg Take 1 [facility] 500 mg 0-15 -14 tablet by ity of tablet 00:00: 05:59 mouth in [place] 00 :00 the [facility] morning [place] and 1 tablet in the evening. Take with meals. Do all this for 90 days. tamsulosin 2021-09- No [id number] .4mg Take 1 [facility] 0.4 mg 24 0-15 -14 capsule by ity of hr capsule 00:00: 05:59 mouth at [place] 00 :00 bedtime Medical for 90 Branch days. amLODIPine 2021-09- No [id number] 5mg Take 1 [facility] 5 mg tablet 0- tablet by it y of 00:00: 05:59 mouth at [place] 00 :00 bedtime Medical for 90 Branch days. levETIRAcet 2021-09- No [id number] 250mg Take 1 [facility] am 250 mg 009-24 tablet by ity of tablet 00:00: 05:59 mouth in [place] 00 :00 the Medical morning Branch and 1 tablet in the evening. Do all this for 90 days. lisinopriL 2021-09- No [id number] 20mg Take 1 [facility] 20 mg 009-24 tablet by ity of tablet 00:00: 05:59 mouth in [place] 00 :00 the Medical morning Branch and 1 tablet in the evening. Do all this for 90 days. FLUoxetine 2021-09- No [id number] 20mg Take 1 [facility] 20 mg 009-24 capsule by ity of capsule 00:00: 05:59 mouth in [place] 00 :00 the Medical morning Branch for 90 days. memantine 2021-09- No [id number] 10mg Take 1 U nivers 10 mg 009-24 tablet by ity of tablet 00:00: 05:59 mouth in [place] 00 :00 the Medical morning Branch and 1 tablet in the evening. Do all this for 90 days. pyridostigm 2021-09- No [id number] 60mg Take 1 [facility] ine 60 mg 009-24 tablet by ity of tablet 00:00: 05:59 mouth as [place] 00 :00 needed for Medical Other Branch (HYPOTENSI ON) for up to 90 days. simvastatin 2021-09- No [id number] 20mg Take 1 [facility] 20 mg 0-15 - tablet by ity of tablet 00:00: 05:59 mouth at [place] 00 :00 bedtime Medical for 90 Branch days. aspirin 81 2021-09- No [id number] 81mg Take 1 [facility] mg chewable 0-09-24 tablet by it y of tablet 00:00: 05:59 mouth in [place] 00 :00 the Medical morning Branch for 90 days. KCL 20 mEq 2021-09- No [id number] 40meq Take 2 Univers tablet 0-15 01-14 tablets by ity of 00:00: 05:59 mouth in [place] 00 :00 the Medical morning Branch for 90 days. gabapentin 2021-09- No [id number] 300mg Take 1 [facility] 300 mg 0-15 12-15 capsule by ity of capsule 00:00: 05:59 mouth as [place] 00 :00 needed for Medical Pain Branch (scale 4-6) for up to 60 days. gabapentin 2021-09- No [id number] 300mg Take 1 [facility] 300 mg 0-15 12-15 capsule by ity of capsule 00:00: 05:59 mouth as [place] 00 :00 needed for Medical Pain Branch (scale 4-6) for up to 60 days. gabapentin 2021-09- No [id number] 300mg Take 1 [facility] 300 mg 0-15 12-15 capsule by ity of capsule 00:00: 05:59 mouth as [place] 00 :00 needed for Medical Pain Branch (scale 4-6) for up to 60 days. gabapentin 2021-09- No [id number] 300mg Take 1 [facility] 300 mg 0-15 12-15 capsule by ity of capsule 00:00: 05:59 mouth as [place] 00 :00 needed for Medical Pain Branch (scale 4-6) for up to 60 days. gabapentin 2021-09- No [id number] 300mg Take 1 [facility] 300 mg 0-15 12-15 capsule by ity of capsule 00:00: 05:59 mouth as [place] 00 :00 needed for Medical Pain Branch (scale 4-6) for up to 60 days. gabapentin 2021-09- No [id number] 300mg Take 1 [facility] 300 mg 0-15 12-15 capsule by ity of capsule 00:00: 05:59 mouth as [place] 00 :00 needed for Medical Pain Branch (scale 4-6) for up to 60 days. gabapentin 2021-09- No [id number] 300mg Take 1 [facility] 300 mg 0-15 12-15 capsule by ity of capsule 00:00: 05:59 mouth as [place] 00 :00 needed for Medical Pain Branch (scale 4-6) for up to 60 days. gabapentin 2021-09- No [id number] 300mg Take 1 [facility] 300 mg 0-15 12-15 capsule by ity of capsule 00:00: 05:59 mouth as [place] 00 :00 needed for Medical Pain Branch (scale 4-6) for up to 60 days. gabapentin 2021-09 No [id number] 300mg Take 1 [facility] 300 mg 0-15 12-15 capsule by ity of capsule 00:00: 05:59 mouth as [place] 00 :00 needed for Medical Pain Branch (scale 4-6) for up to 60 days. amitriptyli 2021-09 No [id number] 100mg Take 2 Univers ne 50 mg 0-15 10-23 tablets by ity of tablet 00:00: 04:59 mouth at [place] 00 :00 bedtime Medical for 7 Branch days. amitriptyli 2021-09- No [id number] 100mg Take 2 Univers ne 50 mg 0-15 10-23 tablets by ity of tablet 00:00: 04:59 mouth at [place] 00 :00 bedtime Medical for 7 Branch days. amitriptyli 2021-09 No [id number] 100mg Take 2 Univers ne 50 mg 0-15 10-23 tablets by ity of tablet 00:00: 04:59 mouth at [place] 00 :00 bedtime Medical for 7 Branch days. amLODIPine 2021-09 10mg 10 mg, Univ ers (NORVASC) -15 Oral, ity of tablet 10 14:00: 12:15 DAILY, [place] mg 00 :01 First dose Medical (after Branch last modificati on) on Mon06/24/22 at 0900, Until Discontinu ed, Routine lidocaine 2021-09 ONCE INTRA U nivers 2% 06-24 PROCEDURE, ity of (XYLOCAINE) 13:31: 13:36 Starting [place] 20 mg/mL (2 40 :35 on Fri Medica l %) 06/24/22 Branch injection at 0831, Until Mon06/24/22 at 0836, Routine, CV Intraproce dure vancomycin 2021-09- CONTINUOUS Univers 1000 mg in 06-24 PRN, ity of NS 200 mL 13:30: 13:30 Starting [place] RTU IV 55 :55 on Fri Medical Piggyback 06/24/22 Branch at 0830, Until Mon06/24/22 at 0830, Administer over 60 Minutes, CV Intraproce dure metFORMIN 2021-09 Yes 500mg 500 mg, Univ ers (GLUCOPHAGE 0-13 Oral, BID ity of ) tablet 22:00: MEALS, [place] 500 mg 00 First dose Medical on [facility] 06/23/22 at 1700, Until Discontinu ed, Routine metFORMIN 2021-09 No 500mg 500 mg, Uni vers (GLUCOPHAGE 0-13 - Oral, BID it y of ) tablet 22:00: 21:09 MEALS, [place] 500 mg 00 :41 First dose Medical on [facility] 06/23/22 at 1700, Until Discontinu ed, Routine amLODIPine 2021-09 No 5mg 5 mg, Unive rs (NORVASC) 0- 10- Oral, ity of tablet 5 mg 16:52: 17:31 ONCE, 1 [place] 00 :00 dose, On [facility] 06/23/22 at 1200, Routine captopriL 2021-09 No 12.5mg 12.5 mg, U nivers (CAPOTEN) 0-23 06- Oral, ity of tablet 12.5 04:45: 04:56 ONCE, 1 [place] mg 00 :00 dose, On [facility] 06/22/22 at 2345, Routine labetaloL 2021-09 No 5mg 5 mg, Slow U nivers (NORMODYNE) 0- 10- IV Push, ity of injection 5 03:45: 03:12 ONCE, 1 [place] mg 00 :00 dose, On [facility] 06/22/22 at 2245, Routine vitamin 2021-09 No 1000ug 1,000 mcg, U nivers B-12 0-08 20- Oral, ity of (CYANOCOBAL 20:15: 12:15 DAILY, [place] CODY) 00 :01 First dose Medical tablet (after Branch 1,000 mcg last modificati on) on [facility] 06/22/22 at 1515, Until Discontinu ed, Routine tamsulosin 2021-09 No .4mg 0.4 mg, Uni vers (FLOMAX) 0-12 10- Oral, ity of capsule 0.4 16:30: 12:15 DAILY, [place] mg 00 :01 First dose Medical on [facility] Branch 06/22/22 at 1130, Until Discontinu ed, [...] No 1000mg 1,000 mg, Unive rs dextran 06-22 IV ity of (INFED) 13:15: 19:42 [place]fusion, [place] 1,000 mg in 00 :40 ONCE, 1 Medic al NaCl 0.9% dose, On Branch (NS) 500 mL Wed IV infusion 06/22/22 at 0815, Administer over 1.5 Hours, 500 mL iron 2021-09 No 25mg 25 mg, IV Univers dextran 06-22 Piggyback, ity o f (INFED) 25 13:15: 17:35 ONCE, 1 [place] mg in NaCl 00 :53 dose, On Medic al 0.9% (NS) [facility] Branch 100 mL IV 06/22/22 piggyback at 0815, Administer over 15 Minutes, 100 mL magnesium 2021-09 No 4g 4 g, IV Univ ers sulfate in 06-22 Piggyback, it y of water 4 12:15: 15:48 at 25 [place] gram/50 mL 00 :01 mL/hr Medical (8 %) IV Administer Branc h Piggyback 4 over 120 g Minutes, ONCE, 1 dose, On Mon06/22/22 at 0715, Routine amLODIPine 2021-09 No 5mg 5 mg, Unive rs (NORVASC) 0 10-13 Oral, ity of tablet 5 mg 08:30: 16:53 DAILY, [place] 00 :37 First dose Medical on [facility] 06/22/22 at 0330, Until Discontinu ed, Routine melatonin 2021-09 Yes 3mg 3 mg, Univers (MELATIN) 0-12 Oral, QHS, ity of tablet 3 mg 02:00: First dose [place] 00 on [facility] 06/21/22 Branch at 2100, Until Discontinu ed, Routine melatonin 2021-09- No 3mg 3 mg, Univer s (MELATIN) 0-12 10-15 Oral, QHS, ity of tablet 3 mg 02:00: 21:09 First dose [place] 00 :41 on [facility] 06/21/22 Branch at 2100, Until Discontinu ed, Routine hydrOXYzine 2021-09- No 10mg 10 mg, Uni vers (ATARAX) 0-12 10-12 Oral, ity of tablet 10 02:00: 01:08 ONCE, 1 [place] mg 00 :00 dose, On [facility] 06/21/22 at 2100, Routine enoxaparin 2021-09 Yes 40mg 40 mg, Unive rs (LOVENOX) 0-11 Subcutaneo ity of injection 22:00: [place], DAILY, [place] 40 mg 00 First dose Medical on [facility] 06/21/22 at 1700, Until Discontinu ed, Routine enoxaparin 2021-09- No 40mg 40 mg, Univ ers (LOVENOX) 0-11 10-15 Subcutaneo ity of injection 22:00: 21:09 us, DAILY, [place] 40 mg 00 :41 First dose Medical on [facility] 06/21/22 at 1700, Until Discontinu ed, Routine hydroCHLORO 2021-09- No 25mg 25 mg, Uni vers thiazide 0-11 10-11 Oral, ity of (ESIDRIX) 19:00: 20:35 DAILY, [place] tablet 25 00 :31 First dose Medi joyce mg (after Branch last modificati on) on [facility] 06/21/22 at 1400, Until Discontinu ed, Routine Sliding 2021-09 Yes Subcutaneo Univ ers Scale 0-11 us, TID ity of Insulin - 17:00: MEALS+HS, [place] Lispro 00 First dose Medical (HumaLOG) + on [facility] 06/21/22 Testing at 1200, Until Discontinu ed, Routine Sliding 2021-09- No Subcutaneo Uni vers Scale 0-11 10-15 us, TID ity of Insulin - 17:00: 21:09 MEALS+HS, [place] Lispro 00 :41 First dose Medical (HumaLOG) + on [facility] 06/21/22 Testing at 1200, Until Discontinu ed, Routine sulfur 2021-09- No [id number] 5mL 5 mL, Unive rs hexafluorid 0-11 10-11 Intravenou i ty of e microsphr 17:00: 17:00 s, ONCE, 1 [place] (LUMASON) 00 :00 dose, On Medica l injection 5 [facility] Health) mL 06/21/22 at 1200, Routine
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 Restricted medication : WILTON NICHOLAS enalapril 2021-09 Yes 20mg 20 mg, Univer s (VASOTEC) 0-11 Oral, BID, ity of tablet 20 16:00: [place] 00 on [facility] 06/21/22 Branch at 1100, Until Discontinu ed, Routine enalapril 2021-09- No 20mg 20 mg, Unive rs (VASOTEC) 0-11 10-15 Oral, BID, ity of tablet 20 16:00: 21:09 First [place] mg 00 :41 on [facility] 06/21/22 Branch at 1100, Until Discontinu ed, Routine dextrose 2021-09 Yes 250mL 250 mL, IV Un te[place] 10% (D10W) 0-11 Infusion, ity of bolus 15:42: PRN - SEE [place] infusion 37 INSTRUCTIO Medic al 250 mL NS, Branch Administer over 60 Minutes, Other, If blood glucose is < or = 70 mg/dL and patient is unable to swallow or has mental status changes, Starting on [facility] 06/21/22 at 1042
If blood glucose is [...] of bolus 15:42: 21:09 PRN - SEE [place] infusion 37 :41 INSTRUCTIO Medic al 250 [...] KIT) 34 Starting Medical injection 1 on [facility] mg 06/21/22 at 1042, Until Discontinu ed, YOKO, Blood Glucose < or = 70 mg/dL and patient is unable to swallow or has mental changes. glucagon 2021-09- No 1mg 1 mg, Univers (GLUCAGEN 0-11 10-15 Intramuscu ity of DIAGNOSTIC 15:42: 21:09 lar, PRN, [place] KIT) 34 :41 Starting Medical injection 1 on Tue Branch mg 06/21/22 at 1042, Until 06/25/22 at 1609, YOKO, Blood Glucose < or = 70 mg/dL and patient is unable to swallow or has mental changes. acetaminoph 2021-09 Yes 650mg 650 mg, Un teo en 0-11 Oral, ity of (TYLENOL) 15:21: Q6HPRN, [place] tablet 650 10 Starting Medic al mg on [facility] 06/21/22 at 1021, Until Discontinu ed, Routine, Pain (scale 1-3) acetaminoph 2021-09- No 650mg 650 mg, U nivers en 006-25 Oral, ity of (TYLENOL) 15:21: 21:09 Q6[place]PRN, [place] tablet 650 10 :41 Starting Medic al mg on [facility] 06/21/22 at 1021, Until 06/25/22 at 1609, Routine, Pain (scale 1-3) melatonin 2021-09- No 3mg 3 mg, Univer s (MELATIN) 06-21 Oral, ity of tablet 3 mg 09:15: 08:30 [place]CE, 1 [place] 00 :[place] dose, On [facility] 06/21/22 at 0415, Routine aspirin 2021-09 No 325mg 325 mg, Unive rs E.C. 06-21 Oral, ity of (ECOTRIN) 08:30: 08:30 ONCE, 1 [place] tablet 325 00 :00 dose, On Medic al mg [facility] 06/21/22 at 0330, STAT atenoloL 2021-09- No 100mg 100 mg, Univ ers (TENORMIN) 06-21 Oral, ity of tablet 100 03:00: 02:13 ONCE, 1 [place] mg 00 :00 dose, On [facility] 06/20/22 at 2200, Routine cloNIDine 2021-09- No .2mg 0.2 mg, Univ ers (CATAPRES) 06-21 Oral, ity of tablet 0.2 02:15: 02:14 ONCE, 1 [place] mg 00 :00 dose, On [facility] 06/20/22 at 2115, STAT iopamidol 2021-09- No [id number] 150mL 150 mL, Univers (ISOVUE 0-10 10-10 Intravenou ity o f 370-500 mL) 21:15: 21:15 s, ONCE, 1 [place] injection 00 :00 dose, On Medica l 150 mL [facility] 06/20/22 at 1615, Routine acetaminoph 2021-09- No [...] as 1,000 mL 00 :00 IV Medical Emil Sanchez ONCE, 1 dose, On Mon06/20/22 at 1430, STAT tamsulosin 2021- No .4mg [...] [place] 00 :00 DAILY Medical PATIENT Emil NEEDS TO CALL OFFICE TO MAKE AN APPOINTMEN T clopidogreL 2021- No TAKE 1 Uni vers 75 mg 9-02 10-15 TABLET BY ity of tablet 00:00: 00:00 MOUTH ONCE [place] 00 :[place] DAILY Medical PATIENT Branch NEEDS TO CALL OFFICE TO MAKE AN APPOINTMEN T Insulin 2020-0 Yes 15U inject 15 Unive [...] U-100 nightly. INSULIN) 100 unit/mL (3 mL) [facility] insulin Yes 15U QD Inject [facility] gl[facility]ine [facility] (LANTUS 00:00: subcutaneo [facility] joyce SOLOSTAR 00 usly Center U-100 nightly. INSULIN) 100 unit/mL (3 mL) [facility] insulin Yes 15U QD Inject 15 [facility] glargine 7-[facility] (LANTUS 00:00: subcutaneo [facility] joyce SOLOSTAR 00 usly Center U-100 nightly. INSULIN) 100 unit/mL (3 mL) In insulin Yes 15U QD Inject 15 [facility] glargine 7-[facility] (LANTUS 00:00: subcutaneo [facility] joyce SOLOSTAR 00 usly Center U-100 nightly. INSULIN) 100 unit/mL (3 mL) [facility] Insulin 2022- No 15U inject 15 Univ ers Glargine 7-19 01-26 Units ity of 100 unit/mL 00:00: 00:00 under the [place] (3 mL) 00 :00 skin. Medical injection Branch memantine 2020- No 5mg Q.5D Take 1 [...] by mouth 2 Center (two) times daily. [facility] 10 2020-0 Yes 10mg QD Take [address] mg tablet 7-09 by mouth [facility] 00:00: daily. [address] 10 2020-0 Yes 10mg QD Take [address] mg tablet 7-09 by mouth [facility] 00:00: daily. [address] 10 2020-0 Yes 10mg QD Take [address] mg tablet 7-09 by mouth [facility] 00:00: daily. [address] 10 2020-0 Yes 10mg QD Take [address] mg tablet 7-09 by mouth [facility] 00:00: daily. [address] 10 2020-0 Yes 10mg QD Take [address] mg tablet 7-09 by mouth [facility] 00:00: daily. [address] simvastatin 2020-0 Yes 20mg QD Take [address] [facility] (ZOCOR) 20 5-13 by mouth [facility] MG tablet 00:00: nightly. [address] tamsulosin 2020-0 Yes .4mg Take 0.[address] [facility] [facility] (FLOMAX) 5-13 mg by [facility] 0.4 mg Cap 00:00: mouth Medica l 24 hr 00 Daily Center capsule (1800). simvastatin 2020-0 Yes 20mg QD Take [address] (ZOCOR) 20 5-13 by mouth [facility] MG tablet 00:00: nightly. [address] tamsulosin 2020-0 Yes .4mg Take 0.[address] [facility] [address] (FLOMAX) 5-13 mg by [facility] 0.4 mg Cap 00:00: mouth Medica l 24 hr 00 Daily Center capsule (1800). simvastatin 2020-0 Yes 20mg QD Take [address] (ZOCOR) 20 5-13 by mouth [facility] MG tablet 00:00: nightly. [address] tamsulosin 2020-0 Yes .4mg Take 0.[address] (FLOMAX) 5-13 mg by [facility] 0.4 mg Cap 00:00: mouth Medica l 24 hr 00 Daily Center capsule (1800). simvastatin 2020-0 Yes 20mg QD Take [address] [address] (ZOCOR) 20 5-13 by mouth [facility] MG tablet 00:00: nightly. [address] simvastatin 2020-0 Yes 20mg QD Take [address] (ZOCOR) 20 5-13 by mouth [facility] MG tablet 00:00: nightly. [address] tamsulosin 2020-0 Yes .4mg Take 0.[address] (FLOMAX) 5-13 mg by [facility] 0.4 mg Cap 00:00: mouth Medica l 24 hr 00 Daily [facility] capsule (1800). tamsulosin 2020-0 Yes .4mg Take 0.[address] [facility] (FLOMAX) 5-13 mg by [facility] 0.4 mg Cap 00:00: mouth Medica l 24 hr 00 Daily [facility] capsule (1800). omeprazole 2020-0 Yes 20mg QD Take [address] (PRILOSEC) 5-04 by mouth [facility] 20 MG 00:00: daily. Medical capsule [address] [place] [address] omeprazole 2020-0 Yes 20mg QD Take [address] (PRILOSEC) 5-04 by mouth [facility] 20 MG 00:00: daily. Medical capsule [address] [place] [address] omeprazole 2020-0 Yes 20mg QD Take [address] (PRILOSEC) 5-04 by mouth [facility] 20 MG 00:00: daily. Medical capsule [address] [place] [address] omeprazole 2020-0 Yes 20mg QD Take [address] (PRILOSEC) 5-04 by mouth [facility] 20 MG 00:00: daily. Medical capsule [address] [place] [address] omeprazole 2020-0 Yes 20mg QD Take [address] (PRILOSEC) 5-04 by mouth [facility] 20 MG 00:00: daily. Medical capsule [address] [place] [address] melatonin 3 2018-0 Yes 3mg QD Take [address] mg Tab 8-23 by mouth [facility] tablet 00:00: nightly. [address] fLUoxetine 2019-0 Yes 20mg QD Take [address] (PROZAC) 20 8-23 by mouth Luke [facility] MG capsule 00:00: daily. Medic al 00 [place] melatonin 3 2018-0 Yes 3mg QD Take [address] mg Tab 8-23 by mouth [facility] tablet 00:00: nightly. [address] fLUoxetine 2019-0 Yes 20mg QD Take [address] (PROZAC) 20 8-23 by mouth Luke s MG capsule 00:00: daily. Medic al [address] [place] [address] melatonin 3 2018-0 Yes 3mg QD Take [address] mg Tab 8-23 by mouth [facility] tablet 00:00: nightly. [address] fLUoxetine Yes 20mg QD Take [address] (PROZAC) 20 8-23 by mouth Luke s MG capsule 00:00: daily. [address] melatonin 3 Yes 3mg QD Take [address] mg Tab 8-23 by mouth [facility] tablet 00:00: nightly. [address] fLUoxetine Yes 20mg QD Take [address] (PROZAC) 20 8-23 by mouth Luke s MG capsule 00:00: daily. [address] fLUoxetine Yes 20mg QD Take [address] (PROZAC) 20 8-23 by mouth Luke s MG capsule 00:00: daily. [address] 3 Yes 3mg QD Take [address] mg Tab 8-23 by mouth [facility] tablet 00:00: nightly. [address] PEPCID 20 Yes prn Univers MG ORAL TAB 6-11 ity of 04:52: [address] COMPLEX 1 Yes None Univer s ORAL TAB 6-11 Entered ity of 04:52: [address] M-VIT ORAL Yes None Univers 6-11 Entered ity of 04:52: [address] 20 Yes prn Univers MG ORAL TAB 6-11 ity of 04:52: [address] COMPLEX 1 Yes None Univer s ORAL TAB 6-11 Entered ity of 04:52: [address] M-VIT ORAL Yes None Univers 6-11 Entered ity of 04:52: [address] 20 Yes prn Univers MG ORAL TAB 6-11 ity of 04:52: [address] B COMPLEX 1 Yes None Univer s ORAL TAB 6-11 Entered ity of 04:52: [address] M-VIT ORAL Yes None Univers 6-11 Entered ity of 04:52: [address] 20 Yes prn Univers MG ORAL TAB 6-11 ity of 04:52: [address] COMPLEX 1 Yes None Univer s ORAL TAB 6-11 Entered ity of 04:52: [address] M-VIT ORAL Yes None Univers 6-11 Entered ity of 04:52: [address] PEPCID 20 Yes prn Univers MG ORAL TAB 6-10 ity of 23:52: [address] B COMPLEX 1 Yes None Univer s ORAL TAB 6-10 Entered ity of 23:52: [address] M-VIT ORAL Yes None Univers 6-10 Entered ity of 23:52: [address] PEPCID 20 Yes prn Univers MG ORAL TAB 6-10 ity of 23:52: [address] B COMPLEX 1 Yes None Univer s ORAL TAB 6-10 Entered ity of 23:52: [address] M-VIT ORAL Yes None Univers 6-10 Entered ity of 23:52: [address] lisinopriL 2014-09 Yes 40mg Take [address] (PRINIVIL,Z 2-21 by mouth [facility] ESTRIL) 40 00:00: Daily Medica l MG tablet 00 (1800). [facility] lisinopriL 2014-09 Yes 40mg Take [address] (PRINIVIL,Z 2-21 by mouth [facility] s ESTRIL) 40 00:00: Daily Medica l MG tablet 00 (1800). [place] lisinopriL 2014-09 Yes 40mg Take [address] (PRINIVIL,Z 2-21 by mouth [facility] s ESTRIL) 40 00:00: Daily Medica l MG tablet 00 (1800). [place] lisinopriL 2014-09 Yes 40mg Take [address] (PRINIVIL,Z 2-21 by mouth Luke s ESTRIL) 40 00:00: Daily Medica l MG tablet 00 (1800). [place] lisinopriL 2014-09 Yes 40mg Take [address] (PRINIVIL,Z 2-21 by mouth Luke s ESTRIL) 40 00:00: Daily Medica l MG tablet 00 (1800). [facility] PROTONIX 40 Yes [id number] 1 tab PO Univers MG ORAL 4-01 daily ity of TBEC 00:00: [address] PROTONIX 40 Yes [id number] 1 tab PO Univers MG ORAL 4-01 daily ity of TBEC 00:00: [place] 00 Medical Branch PROTONIX 40 2008-0 Yes [id number] 1 tab PO Univers MG ORAL 4-01 daily ity of TBEC 00:00: [place] 00 Medical Branch PROTONIX 40 2008-0 Yes [id number] 1 tab PO Univers MG ORAL 4-01 daily ity of TBEC 00:00: [place] 00 Medical Branch PROTONIX 40 2008-0 Yes [id number] 1 tab PO Univers MG ORAL 4-01 daily ity of TBEC 00:00: [place] 00 Medical Branch PROTONIX 40 2008-0 Yes [id number] 1 tab PO Univers MG ORAL 4-01 daily ity of TBEC 00:00: [place] 00 Medical Branch PROTONIX 40 2008-0 2- No [id number] 1 tab PO Univers MG ORAL 4-01 10-15 daily ity of TBEC 00:00: 00:00 [place] 00 :00 Medical Branch PROTONIX 40 2008-0 2- No [id number] 1 tab PO Univers MG ORAL 4-01 10-15 daily ity of TBEC 00:00: 00:00 [place] 00 :00 Medical Branch ENALAPRIL 2009-0 Yes [id number] 1 tab po Univers MALEATE 20 1-15 BID ity of MG ORAL TAB 00:00: [place] 00 Medical Branch ENALAPRIL 2009-0 Yes [id number] 1 tab po Univers MALEATE 20 1-15 BID ity of MG ORAL TAB 00:00: [place] 00 Medical Branch ENALAPRIL 2009-0 Yes [id number] 1 tab po Univers MALEATE 20 1-15 BID ity of MG ORAL TAB 00:00: [place] 00 Medical Branch ENALAPRIL 2009-0 Yes [id number] 1 tab po Univers MALEATE 20 1-15 BID ity of MG ORAL TAB 00:00: [place] 00 Medical Branch ENALAPRIL 2008-0 Yes [id number] 1 tab po Univers MALEATE 20 1-15 BID ity of MG ORAL TAB 00:00: [place] 00 Medical Branch ENALAPRIL 2008-0 Yes [id number] 1 tab po Univers MALEATE 20 1-15 BID ity of MG ORAL TAB 00:00: [place] 00 Medical Branch ENALAPRIL 2008-0 2022- No [id number] 1 tab po Univers MALEATE 20 1-15 10-15 BID ity of MG ORAL TAB 00:00: 00:00 [place] 00 :00 Medical Branch ENALAPRIL 2008-0 2022- No [id number] 1 tab po Univers MALEATE 20 1-15 10-15 BID ity of MG ORAL TAB 00:00: 00:00 [place] 00 :00 Medical Branch HYDROCHLORO 2007- Yes [id number] take 1 po Univers THIAZIDE 25 0-30 daily ity of MG ORAL TAB 00:00: [place] 00 Medical Branch HYDROCHLORO 2007- Yes [id number] take 1 po Univers THIAZIDE 25 0-30 daily ity of MG ORAL TAB 00:00: [place] 00 Medical Branch HYDROCHLORO 2007- Yes [id number] take 1 po Univers THIAZIDE 25 0-30 daily ity of MG ORAL TAB 00:00: [place] 00 Medical Branch HYDROCHLORO 2007- Yes [id number] take 1 po Univers THIAZIDE 25 0-30 daily ity of MG ORAL TAB 00:00: [place] 00 Medical Branch HYDROCHLORO 2007- Yes [id number] take 1 po Univers THIAZIDE 25 0-30 daily ity of MG ORAL TAB 00:00: [place] 00 Medical Branch HYDROCHLORO 2007- Yes [id number] take 1 po Univers THIAZIDE 25 0-30 daily ity of MG ORAL TAB 00:00: [place] 00 Medical Branch HYDROCHLORO 2007- 2022- No [id number] take 1 po Univers THIAZIDE 25 0-30 10-15 daily ity of MG ORAL TAB 00:00: 00:00 [place] 00 :00 Medical Branch HYDROCHLORO 2007- 2022- No [id number] take 1 po Univers THIAZIDE 25 0-30 10-15 daily ity of MG ORAL TAB 00:00: 00:00 [place] 00 :00 Medical Branch GLIPIZIDE 5 Yes [...] and 1 ity of 00:00: tab qpm [place] 00 Medical Branch GLIPIZIDE 5 Yes tske 2 tab Univers MG ORAL TAB 05-20 qam and 1 ity of 00:00: tab qpm Medical Branch GLIPIZIDE 5 Yes tske 2 tab Univers MG ORAL TAB 9 qam and 1 ity of 00:00: tab qpm Medical Branch GLIPIZIDE 5 2021- No tske 2 tab Univers MG ORAL TAB -05 21-15 qam and 1 it y of 00:00: 00:00 tab qpm [place] 00 : Medical Branch GLIPIZIDE 5 2021- No tske 2 tab Univers MG ORAL TAB -05 21- qam and 1 it y of 00:00: 00:00 tab qpm [place] 00 : Medical Branch ATENOLOL Yes [id number] one tab po Univers 100 MG ORAL 8-27 daily ity of TAB 00:00: Medical Branch NORCO Yes 1 tab po Univers 7.5-325 MG 8-27 TID ity of ORAL TAB 00:00: Medical Branch AMITRIPTYLI Yes 2 tabs QHS Univers NE 50 MG 8-27 ity of ORAL TAB 00:00: Medical Branch METFORMIN Yes [id number] 1 tab PO Univers 850 MG ORAL 8-27 TID ity of TAB 00:00: Medical Branch CLONIDINE Yes [id number] take 1 po Univers 0.2 MG ORAL 8-27 qid for 1 ity of TAB 00:00: week, then 00 tid for 1 Medical week, then Branch bid and prn thereafter PRAVASTATIN Yes [id number] take 1 po Univers 40 MG ORAL 8-27 qhs ity of TAB 00:00: Medical Branch ATENOLOL Yes [id number] one tab po Univers 100 MG ORAL 8-27 daily ity of TAB 00:00: Medical Branch NORCO Yes 1 tab po Univers 7.5-325 MG 8-27 TID ity of ORAL TAB 00:00: Medical Branch AMITRIPTYLI Yes 2 tabs QHS Univers NE 50 MG 8-27 ity of ORAL TAB 00:00: Medical Branch METFORMIN Yes [id number] 1 tab PO Univers 850 MG ORAL 8-27 TID ity of TAB 00:00: [place] [facility] CLONIDINE 2007- Yes [id number] take 1 po Univers 0.2 MG ORAL 8-27 qid for 1 ity of TAB 00:00: week, then [place] 00 tid for 1 Medical week, then Branch bid and prn thereafter PRAVASTATIN Yes [id number] take 1 po Univers 40 MG ORAL 8-27 qhs ity of TAB 00:00: [place] [facility] ATENOLOL Yes [id number] one tab po Univers 100 MG ORAL 8-27 daily ity of TAB 00:00: [place] [facility] NORCO Yes 1 tab po Univers 7.5-325 MG 8-27 TID ity of ORAL TAB 00:00: [place] [facility] AMITRIPTYLI Yes 2 tabs QHS Univers NE 50 MG 8-27 ity of ORAL TAB 00:00: Medical Branch METFORMIN 2007- Yes [id number] 1 tab PO Univers 850 MG ORAL 8-27 TID ity of TAB 00:00: [place] [facility] CLONIDINE 2007- Yes [id number] take 1 po Univers 0.2 MG ORAL 8-27 qid for 1 ity of TAB 00:00: week, then [place] 00 tid for 1 Medical week, then Branch bid and prn thereafter PRAVASTATIN Yes [id number] take 1 po Univers 40 MG ORAL 8-27 qhs ity of TAB 00:00: [place] [facility] ATENOLOL 2007- Yes [id number] one tab po Univers 100 MG ORAL 8-27 daily ity of TAB 00:00: [place] [facility] NORCO Yes 1 tab po Univers 7.5-325 MG 8-27 TID ity of ORAL TAB 00:00: [place] [facility] AMITRIPTYLI Yes 2 tabs QHS Univers NE 50 MG 8-27 ity of ORAL TAB 00:00: [place] [facility] METFORMIN 2007- Yes [id number] 1 tab PO Univers 850 MG ORAL 8-27 TID ity of TAB 00:00: [place] [facility] CLONIDINE 2007- Yes [id number] take 1 po Univers 0.2 MG ORAL 8-27 qid for 1 ity of TAB 00:00: week, then [place] 00 tid for 1 Medical week, then Branch bid and prn thereafter PRAVASTATIN Yes [id number] take 1 po Univers 40 MG ORAL 8-27 qhs ity of TAB 00:00: [place] [facility] ATENOLOL Yes [id number] one tab po Univers 100 MG ORAL 8-27 daily ity of TAB 00:00: [place] [facility] NORCO Yes 1 tab po Univers 7.5-325 MG 8-27 TID ity of ORAL TAB 00:00: [place] [facility] AMITRIPTYLI Yes 2 tabs QHS Univers NE 50 MG 8-27 ity of ORAL TAB 00:00: [place] [facility] METFORMIN Yes [id number] 1 tab PO Univers 850 MG ORAL 8-27 TID ity of TAB 00:00: [place] [facility] CLONIDINE Yes [id number] take 1 po Univers 0.2 MG ORAL 8-27 qid for 1 ity of TAB 00:00: week, then [place] 00 tid for 1 Medical week, then Branch bid and prn thereafter PRAVASTATIN Yes [id number] take 1 po Univers 40 MG ORAL 8-27 qhs ity of TAB 00:00: [place] [facility] ATENOLOL Yes [id number] one tab po Univers 100 MG ORAL 8-27 daily ity of TAB 00:00: [place] [facility] NORCO Yes 1 tab po Univers 7.5-325 MG 8-27 TID ity of ORAL TAB 00:00: Medical Branch AMITRIPTYLI Yes 2 tabs QHS Univers NE 50 MG 8-27 ity of ORAL TAB 00:00: [place] [facility] METFORMIN Yes [id number] 1 tab PO Univers 850 MG ORAL 8-27 TID ity of TAB 00:00: [place] [facility] CLONIDINE Yes [id number] take 1 po Univers 0.2 MG ORAL 8-27 qid for 1 ity of TAB 00:00: week, then [place] 00 tid for 1 Medical week, then Branch bid and prn thereafter PRAVASTATIN Yes [id number] take 1 po Univers 40 MG ORAL 8-27 qhs ity of TAB 00:00: Medical Branch ATENOLOL 2021- No [id number] one tab po Univers 100 MG ORAL 8-27 10-15 daily ity of TAB 00:00: 00:00 [place] 00 :00 Medical Branch NORCO 2021- No 1 tab po Univers 7.5-325 MG 8-27 10-15 TID ity of ORAL TAB 00:00: 00:00 [place] 00 :00 Medical Branch AMITRIPTYLI 2021- No 2 tabs QHS Univers NE 50 MG 8-27 10-15 ity of ORAL TAB 00:00: 00:00 [place] 00 :00 Medical Branch METFORMIN 2021- No [id number] 1 tab PO Univers 850 MG ORAL 8-27 10-15 TID ity of TAB 00:00: 00:00 [place] 00 :00 Medical Branch CLONIDINE 2021- No [id number] take 1 po Univers 0.2 MG ORAL 8-27 10-15 qid for 1 it y of TAB 00:00: 00:00 week, then [place] 00 :00 tid for 1 Medical week, then Branch bid and prn thereafter PRAVASTATIN 2021- No [id number] take 1 po Univers 40 MG ORAL 8-27 10-15 qhs ity of TAB 00:00: 00:00 [place] 00 :00 Medical Branch ATENOLOL 2021- No [id number] one tab po Univers 100 MG ORAL 8-27 10-15 daily ity of TAB 00:00: 00:00 [place] 00 :00 Medical Branch NORCO 2021- No 1 tab po Univers 7.5-325 MG 8-27 10-15 TID ity of ORAL TAB 00:00: 00:00 [place] 00 :00 Medical Branch AMITRIPTYLI 2021- No 2 tabs QHS Univers NE 50 MG 8-27 10-15 ity of ORAL TAB 00:00: 00:00 [place] 00 :00 Medical Branch METFORMIN 2021- No [id number] 1 tab PO Univers 850 MG ORAL 8-27 10-15 TID ity of TAB 00:00: 00:00 [place] 00 :00 Medical Branch CLONIDINE 2021- No [id number] take 1 po Univers 0.2 MG ORAL 8-27 10-15 qid for 1 it y of TAB 00:00: 00:00 week, then [place] 00 :00 tid for 1 Medical week, then Branch bid and prn thereafter PRAVASTATIN 2007-0 2- No [id number] take 1 po Univers 40 MG ORAL 8-27 10-15 qhs ity of TAB 00:00: 00:00 [place] 00 :00 Medical Branch CLONIDINE 2007-0 Yes [id number] 1 tab tid Univers 0.3 MG ORAL 4-30 and prn ity o f TAB 00:00: Medical Branch CLONIDINE 2007-0 Yes [id number] 1 tab tid Univers 0.3 MG ORAL 4-30 and prn ity o f TAB 00:00: [place] [facility] CLONIDINE 2007-0 Yes [id number] 1 tab tid Univers 0.3 MG ORAL 4-30 and prn ity o f TAB 00:00: Medical Branch CLONIDINE 2007-0 Yes [id number] 1 tab tid Univers 0.3 MG ORAL 4-30 and prn ity o f TAB 00:00: [place] [facility] CLONIDINE 2007-0 Yes [id number] 1 tab tid Univers 0.3 MG ORAL 4-30 and prn ity o f TAB 00:00: [place] 00 Medical Branch CLONIDINE 2007-0 Yes [id number] 1 tab tid Univers 0.3 MG ORAL 4-30 and prn ity o f TAB 00:00: [place] [facility] CLONIDINE 2007-0 2022- No [id number] 1 tab tid Univers 0.3 MG ORAL 4-30 10-15 and prn ity of TAB 00:00: 00:00 [place] 00 :00 Medical Branch CLONIDINE 2007-0 2021- No [id number] 1 tab tid Univers 0.3 MG ORAL 4-30 10-15 and prn ity of TAB 00:00: 00:00 [place] 00 :00 Medical Branch ASPIRIN 325 2006- Yes [id number] 1 tab U nivers MG ORAL TAB 0-04 daily ity of 00:00: [place] [facility] ASPIRIN 325 2006- Yes [id number] 1 tab U nivers MG ORAL TAB 0-04 daily ity of 00:00: [place] 00 [facility] ASPIRIN 325 2006- Yes [id number] 1 tab U nivers MG ORAL TAB 0-04 daily ity of 00:00: [place] [facility] ASPIRIN 325 2006- Yes [id number] 1 tab U nivers MG ORAL TAB 0-04 daily ity of 00:00: [place] 00 [facility] ASPIRIN 325 2006- Yes [id number] 1 tab U nivers MG ORAL TAB 0-04 daily ity of 00:00: [place] [facility] ASPIRIN 325 2006- Yes [id number] 1 tab U nivers MG ORAL TAB 0-04 daily ity of 00:00: [place] [facility] ASPIRIN 325 2006-2- No [id number] 1 tab Univers MG ORAL TAB 0-04 10-15 daily ity of 00:00: 00:00 [place] 00 :00 Medical Branch ASPIRIN 325 2006-2021- No [id number] 1 tab Univers MG ORAL TAB 0-04 10-15 daily ity of 00:00: 00:00 [place] 00 :00 [facility] Immunizations Ordered Filled Immunization Date Status Comments [facility] e Immunization Name Name Influenza Virus 2007-06-20 Completed Universit y of Vaccine 00:00:00 [facility] Influenza Virus 2007-06-20 Completed Universit y of Vaccine 00:00:00 [facility] Influenza Virus 2007-06-20 Completed Universit y of Vaccine 00:00:00 [facility] Influenza Virus 2007-06-20 Completed Universit y of Vaccine 00:00:00 [facility] Influenza Virus 2007-06-20 Completed Universit y of Vaccine 00:00:00 [facility] Influenza Virus 2007-06-20 Completed Universit y of Vaccine 00:00:00 [facility] Influenza Virus 2007-06-20 Completed Universit y of Vaccine 00:00:00 [facility] Influenza Virus 2007-06-20 Completed Universit y of Vaccine 00:00:00 [facility] Influenza Virus 2007-06-20 Completed Universit y of Vaccine 00:00:00 [facility] Influenza Virus 2007-06-20 Completed Universit y of Vaccine 00:00:00 [facility] Influenza Virus 2007-06-20 Completed Universit y of Vaccine 00:00:00 [facility] Influenza Virus 2007-06-20 Completed Universit y of Vaccine 00:00:00 [facility] Influenza Virus 2007-06-20 Completed Universit y of Vaccine 00:00:00 [facility] Influenza Virus 2007-06-20 Completed Universit y of Vaccine 00:00:00 [facility] Influenza Virus 2007-06-20 Completed Universit y of Vaccine 00:00:00 [facility] Influenza Virus 2007-06-20 Completed Universit y of Vaccine 00:00:00 [facility] Influenza Virus 2007-06-20 Completed Universit y of Vaccine 00:00:00 [facility] Influenza Virus 2007-06-20 Completed Universit y of Vaccine 00:00:00 [facility] Influenza Virus 2006-07-26 Completed Universit y of Vaccine 00:00:00 [facility] Influenza Virus 2006-07-26 Completed Universit y of Vaccine 00:00:00 [facility] Influenza Virus 2006-07-26 Completed Universit y of Vaccine 00:00:00 [facility] Influenza Virus 2006-07-26 Completed Universit y of Vaccine 00:00:00 [facility] Influenza Virus 2006-07-26 Completed Universit y of Vaccine 00:00:00 [facility] Influenza Virus 2006-07-26 Completed Universit y of Vaccine 00:00:00 [facility] Influenza Virus 2006-07-26 Completed Universit y of Vaccine 00:00:00 [facility] Influenza Virus 2006-07-26 Completed Universit y of Vaccine 00:00:00 [facility] Influenza Virus 2006-07-26 Completed Universit y of Vaccine 00:00:00 [facility] Influenza Virus 2006-07-26 Completed Universit y of Vaccine 00:00:00 [facility] Influenza Virus 2006-07-26 Completed Universit y of Vaccine 00:00:00 [facility] Influenza Virus 2006-07-26 Completed Universit y of Vaccine 00:00:00 [facility] Influenza Virus 2006-07-26 Completed Universit y of Vaccine 00:00:00 [facility] Influenza Virus 2006-07-26 Completed Universit y of Vaccine 00:00:00 [facility] Influenza Virus 2006-07-26 Completed Universit y of Vaccine 00:00:00 [facility] Influenza Virus 2006-07-26 Completed Universit y of Vaccine 00:00:00 [facility] Influenza Virus 2006-07-26 Completed Universit y of Vaccine 00:00:00 [facility] Influenza Virus 2006-07-26 Completed Universit y of Vaccine 00:00:00 [facility] Vital Signs Vital Name Observation Time Observation Value Comments Source WEIGHT 2020-03-24 76.658 kg 00:00:00 Systolic blood 2022-10-08 139 mm[Hg] University of pressure 15:29:00 [facility] Diastolic blood 2022-10-08 85 mm[Hg] University o f pressure 15:29:00 [facility] Heart rate 2022-10-08 72 /min University of 15::00 [facility] Body temperature 2022-10-08 35.56 Sindhu University of 15::00 [facility] Respiratory rate 2022-10-08 22 /min University of 15::00 [facility] Oxygen saturation 2022-10-08 96 /min University of in Arterial blood 15:29:00 [facility] by Pulse oximetry [place] Body height 2022-10-06 162.6 cm University of 22::00 [facility] Body weight 2022-10-06 78.926 kg University of 22::00 [facility] BMI 2022-10-06 29.87 kg/m2 University of 22::00 [facility] Systolic blood 2022-06-25 150 mm[Hg] University of pressure 16:28: [facility] Diastolic blood 2022-06-25 92 mm[Hg] University o f pressure 16:28:00 [facility] Heart rate 2022-06-25 102 /min University of 16:28:00 [facility] Body temperature 2022-06-25 36.5 Sindhu University of 16:28:00 [facility] Respiratory rate 2022-06-25 20 /min University of 16:28:00 [facility] Oxygen saturation 2022-06-25 91 /min University of in Arterial blood 16:28:00 [facility] by Pulse oximetry [place] Body weight 2022-06-21 71.215 kg University of 15::00 [facility] BMI 2022-06-21 26.13 kg/m2 University of 15::00 [facility] Body height 2022-06-20 165.1 cm University of 18:31:00 [facility] Systolic blood 2022-06-24 184 mm[Hg] University of pressure 12:28:00 beena/yury [place] [facility] bedside Diastolic blood 2022-06-24 105 mm[Hg] dr Hernandez o f pressure 12:28:00 beena/goodvioleta [place] [facility] bedside Heart rate 2022-06-24 79 /min University of 12:28:00 [facility] Body temperature 2022-06-24 36.5 Sindhu University of 12:28:00 [facility] Respiratory rate 2022-06-24 20 /min University of 12:28:00 [facility] Oxygen saturation 2022-06-24 95 /min [facility] in Arterial blood 12:28:00 [facility] by Pulse oximetry [place] Body weight 2022-06-21 71.215 kg [facility] 15:26:00 [facility] BMI 2022-06-21 26.13 kg/m2 [facility] 15:26:00 [facility] Body height 2022-06-20 165.1 cm [facility] 18:31:00 [facility] Systolic blood 2021-05-11 156 mm[Hg] University of pressure 01:25:00 [facility] Diastolic blood 2021-05-11 77 mm[Hg] [place] o f pressure 01:25:00 [facility] Heart rate 2021-05-11 65 /min [facility] 01:25:00 [facility] Body temperature 2021-05-11 36.94 Sindhu [facility] 01:25:00 [facility] Respiratory rate 2021-05-11 18 /min [facility] :25:00 [facility] Oxygen saturation 2021-05-11 96 /min [facility] in Arterial blood 01:25:00 [facility] Pulse oximetry [place] Body weight 2021-05-10 68.04 kg [facility] 12:50:00 [facility] WEIGHT 2020-03-24 76.658 kg 00:00:00 Procedures Procedure Date / Time Performing Clinician Source Performed COVID-19 (ID NOW RAPID 2022-10-08 Chauncey [facility] y of TESTING) 14:58:00 [facility] POCT GLUCOSE (AUTOMATED) 2022-10-08 [facility] ity of 14:55:00 [facility] 2022-10-08 [facility] ity of 03:51:00 [facility] ([facility]OMATED) 2022-10-08 [facility] ity of 03:10:00 [facility] COVID-19 (ID NOW RAPID 2022-10-07 Forrest [facility] y of TESTING) 20:42:00 [facility] LAB ONLY COVID INTERPRETATION 2022-10-07 Adelaide Grossman Un iversity of 20:42:00 [facility] HB ECG ROUTINE & RHYTHM STRIP 2022-10-07 [place] iversity of 14:09:51 [facility] MAGNESIUM 2022-10-07 [facility] of 11:05:00 [facility] BASIC METABOLIC PANEL (NA, K, 2022-10-07 Chauncey [facility] iversity of CL, CO2, GLUCOSE, BUN, 11:05:00 [facility] ical CREATININE, CA) Branch CBC WITH DIFF 2022-10-07 [facility] of 11:05:00 [facility] CT HEAD WO CONTRAST 2022-10-06 [facility] o f 21:38:43 [facility] XR CHEST 1 VW 2022-10-[address] [facility] [facility] [place] [place] [facility] 18:00:00 [facility] CARDIAC [facility]HETERIZATION [facility]22[facility]10-[facility] 15:30:17 [facility] ELECTROPHYSIOLOGY PROCEDURE 2022-10-06 [facility] ersity of 15:30:17 [facility] ELECTROPHYSIOLOGY PROCEDURE 2022-10-[address] [facility] ersity of 15:30:17 [facility] CBC WITH DIFF 2022-10-03 [facility] of 17:03:00 [facility] PROTHROMBIN TIME / INR 2022-10-03 [facility] 17:03:00 [facility] ASSIGNMENT OF BENEFITS 2022-08-03 Doctor Unassigned, Univer sity of 17:21:11 [place] [facility] EXTERNAL PROVIDER RECORDS 2022-07-07 Doctor Unassigned, Uni versity of 05:01:00 [place] [facility] POCT GLUCOSE (AUTOMATED) 2022-06-25 [facility] ersity of 17:11:00 [facility] POCT GLUCOSE (AUTOMATED) 2022-06-25 [facility] ersity of 17:11:00 [facility] POCT GLUCOSE (AUTOMATED) 2022-06-25 [facility] ersity of 14:07:00 [facility] POCT GLUCOSE (AUTOMATED) 2022-06-25 [facility] ersity of 14:07:00 [facility] MAGNESIUM 2022-06-25 [facility] of 10:22:00 [facility] BASIC METABOLIC PANEL (NA, K, 2022-06-25 Marlys [place] Un iversity of CL, CO2, GLUCOSE, BUN, 10:22:00 [place] [facility] CREATININE, CA) Branch CBC WITHOUT DIFF 2022-06-25 [facility] of 10:22:00 [facility] MAGNESIUM 2022-06-25 Verenicedclilil [facility] of 10:22:00 [facility] BASIC METABOLIC PANEL (NA, K, 2022-06-25 Gita [place] Un iversity of CL, CO2, GLUCOSE, BUN, 10:22:00 [place] [facility] CREATININE, CA) Branch CBC WITHOUT DIFF 2022-06-25 [facility] of 10:22:00 [facility] POCT GLUCOSE (AUTOMATED) 2022-06-25 [facility] ersity of 01:29:00 [facility] POCT GLUCOSE (AUTOMATED) 2022-06-25 [facility] ersity of 01:29:00 [facility] POCT GLUCOSE (AUTOMATED) 2022-06-24 [facility] ersity of 22:20:00 [facility] POCT GLUCOSE (AUTOMATED) 2022-06-24 [facility] ersity of 22:20:00 [facility] POCT GLUCOSE (AUTOMATED) 2022-06-24 [facility] ersity of 18:06:00 [facility] POCT GLUCOSE (AUTOMATED) 2022-06-24 [facility] ersity of 18:06:00 [facility] CBC WITHOUT DIFF 2022-06-24 [facility] of 17:27:00 [facility] CBC WITHOUT DIFF 2022-06-24 [facility] of 17:27:00 [facility] MAGNESIUM 2022-06-24 [facility] of 17:26:00 [facility] BASIC METABOLIC PANEL (NA, K, 2022-06-24 Marlys [place] Un iversity of CL, CO2, GLUCOSE, BUN, 17:26:00 [place] [facility] CREATININE, CA) Branch MAGNESIUM 2022-06-24 edwina [facility] of 17:26:00 [facility] BASIC METABOLIC PANEL (NA, K, 2022-06-24 Gita [facility] iversity of CL, CO2, GLUCOSE, BUN, 17:26:00 [facility] ical CREATININE, CA) Branch ELECTROPHYSIOLOGY PROCEDURE 2022-06-[address] [facility] ersity of 13:36:26 [facility] ELECTROPHYSIOLOGY PROCEDURE 2022-06-[address] [facility] ersity of 13:36:26 [facility] POCT GLUCOSE (AUTOMATED) 2022-06-24 [facility] ersity of 13:01:00 [facility] POCT GLUCOSE (AUTOMATED) 2022-06-24 [facility] ersity of 13:01:00 [facility] POCT GLUCOSE (AUTOMATED) 2022-06-24 [place] Uni versity of 03:58:00 [facility] POCT GLUCOSE (AUTOMATED) 2022-06-24 [place] Uni versity of 03:58:00 [facility] URINALYSIS 2022-06-23 [facility] of 22:59:00 [facility] URINALYSIS 2022-06-23 [facility] of 22:59:00 [facility] POCT GLUCOSE (AUTOMATED) 2022-06-23 [place], [place] Uni versity of 22:38:00 [facility] POCT GLUCOSE (AUTOMATED) 2022-06-23 [place], [place] Uni versity of 22:38:00 [facility] POCT GLUCOSE (AUTOMATED) 2022-06-23 [place], [place] Uni versity of 17:07:00 [facility] POCT GLUCOSE (AUTOMATED) 2022-06-23 [place], [place] Uni versity of 17:07:00 [facility] POCT GLUCOSE (AUTOMATED) 2022-06-23 [place], [place] Uni versity of 12:31:00 [facility] POCT GLUCOSE (AUTOMATED) 2022-06-23 [place], [place] Uni versity of 12:31:00 [facility] MAGNESIUM 2022-06-23 [facility] of 09:22:00 [facility] BASIC METABOLIC PANEL (NA, K, 2022-06-23 Verenicedclilli [place] Un iversity of CL, CO2, GLUCOSE, BUN, 09:22:00 [place] [facility] CREATININE, CA) Branch CBC WITHOUT DIFF 2022-06-23 [facility] of 09:22:00 [facility] MAGNESIUM 2022-06-23 [facility] of 09:22:00 [facility] BASIC METABOLIC PANEL (NA, K, 2022-06-23 [facility] [place] Un iversity of CL, CO2, GLUCOSE, BUN, 09:22:00 [place] [facility] CREATININE, CA) Branch CBC WITHOUT DIFF 2022-06-23 [facility] of 09:22:00 [facility] HB ECG ROUTINE & RHYTHM STRIP 2022-06-23 [facility] of 04:21:59 [facility] HB ECG ROUTINE & RHYTHM STRIP 2022-06-23 [facility] of 04:21:59 [facility] POCT GLUCOSE (AUTOMATED) 2022-06-23 Ca Meléndez Uni versity of 02:30:00 [facility] POCT GLUCOSE (AUTOMATED) 2022-06-23 Ca Meléndez Uni versity of 02:30:00 [facility] PHOSPHORUS 2022-06-22 [facility] of 22:43:00 [facility] PHOSPHORUS 2022-06-22 [facility] of 22:43:00 [facility] METANEPHRINES, PLASMA 2022-06-22 [facility] of 22:42:00 [facility] POCT GLUCOSE (AUTOMATED) 2022-06-22 Ca Meléndez Uni versity of 21:59:00 [facility] POCT GLUCOSE (AUTOMATED) 2022-06-22 Ca Meléndezbeth Uni versity of 21:59:00 [facility] POCT GLUCOSE (AUTOMATED) 2022-06-22 Ca Meléndez Uni versity of 16:52:00 [facility] POCT GLUCOSE (AUTOMATED) 2022-06-22 Ca Meléndez Uni versity of 16:52:00 [facility] POCT GLUCOSE (AUTOMATED) 2022-06-22 [place] Uni versity of 13:13:00 [facility] POCT GLUCOSE (AUTOMATED) 2022-06-22 LowCa Uni versity of 13:13:00 [facility] MAGNESIUM 2022-06-[address] [facility] of 10:07:00 [facility] FERRITIN SERUM 2022-06-22 [facility] of 10:07:00 [facility] VITAMIN B12, LEVEL 2022-06-22 [facility] of 10:07:00 [facility] BASIC METABOLIC PANEL (NA, K, 2022-06-22 Bin Gomez Un iversity of CL, CO2, GLUCOSE, BUN, 10:07:00 [place] [facility] CREATININE, CA) Branch IRON PANEL 2022-06-22 [facility] of 10:07:00 [facility] CBC WITH DIFF 2022-06-22 [facility] of 10:07:00 [facility] MAGNESIUM 2022-06-22 [facility] of 10:07:00 [facility] FERRITIN SERUM 2022-06-[address] [facility] of 10:07:00 [facility] VITAMIN B12, LEVEL 2022-06-22 [facility] of 10:07:00 [facility] BASIC METABOLIC PANEL (NA, K, 2022-06-22 [facility] mistry Un iversity of CL, CO2, GLUCOSE, BUN, 10:07:00 [place] [facility] CREATININE, CA) Branch IRON PANEL 2022-06-22 [facility] of 10:07:00 [facility] CBC WITH DIFF 2022-06-22 [facility] of 10:07:00 [facility] POCT GLUCOSE (AUTOMATED) 2022-06-22 Ca Meléndez Uni versity of 00:54:00 [facility] POCT GLUCOSE (AUTOMATED) 2022-06-22 LowCabeth Uni versity of 00:54:00 [facility] POCT GLUCOSE (AUTOMATED) 2022-06-21 Srinath Cohen of 21:48:00 [facility] POCT GLUCOSE (AUTOMATED) 2022-06-21 CohenSrinath faye Univers ity of 21:48:00 [facility] HB ECG ROUTINE & RHYTHM STRIP 2022-06-21 Bin Gomez Un iversity of 19:13:25 [facility] HB ECG ROUTINE & RHYTHM STRIP 2022-06-21 Bin Gomez Un iversity of 19:13:25 [facility] TRANSTHORACIC ECHO (TTE) 2022-06-21 Bin Gomez Univers ity of COMPLETE W/ CONTRAST 16:58:45 [facility] TRANSTHORACIC ECHO (TTE) 2022-06-21 SantosfideliaBin Univers ity of COMPLETE W/ CONTRAST 16:58:45 [facility] POCT GLUCOSE (AUTOMATED) 2022-06-21 Srinath Cohen Univers ity of 16:35:00 [facility] POCT GLUCOSE (AUTOMATED) 2022-06-21 Srinath Cohen [facility] ity of 16:35:00 [facility] THYROID STIMULATING HORMONE 2022-06-21 Bin Gomez [facility] ersity of 12:08:00 [facility] COMP. METABOLIC PANEL ([id number]) 2022-06-21 Anastasiya Tapia [place] of 12:08:00 [facility] CBC WITH DIFF 2022-06-21 Anastasiya Tapia [place] of 12:08:00 [facility] GLYCOSYLATED HEMOGLOBIN (A1C) 2022-06-21 Bin Gomez Un iversity of 12:08:00 [facility] THYROID STIMULATING HORMONE 2022-06-21 Bin Gomez [facility] ersity of 12:08:00 [facility] COMP. METABOLIC PANEL ([id number]) 2022-06-21 Anastasiya Tapia [place] of 12:08:00 [facility] CBC WITH DIFF 2022-06-21 Anastasiya Tapia [place] of 12:08:00 [facility] GLYCOSYLATED HEMOGLOBIN (A1C) 2022-06-21 Bin Goemz iversity of 12:08:00 [facility] COVID-19 (ID NOW RAPID 2022-06-21 Anastasiya Tapia [facility] sity of TESTING) 07:07:00 [facility] LAB ONLY COVID INTERPRETATION 2022-06-21 Anatsasiya Tapia [place] of 07:07:00 [facility] COVID-19 (ID NOW RAPID 2022-06-21 Anastasiya Tapia [facility] sity of TESTING) 07:07:00 [facility] LAB ONLY COVID INTERPRETATION 2022-06-21 Anastasiya Tapia [place] of 07:07:00 [facility] LACTIC ACID WHOLE BLOOD 2022-06-21 Srinath Cohen [facility] ty of 04:05:00 [facility] LACTIC ACID WHOLE BLOOD 2022-06-21 [facility] ty of 04:05:00 [facility] CT HEAD WO CONTRAST 2022-06-21 [facility] o f 00:42:20 [facility] CT HEAD WO CONTRAST 2022-06-21 Cohen, [facility] o f 00:42:20 [facility] ELECTROENCEPHALOGRAM 2022-06-21 [facility] of 00:00:00 [facility] ELECTROENCEPHALOGRAM 2022-06-21 [facility] of 00:00:00 [facility] LACTIC ACID WHOLE BLOOD 2022-06-20 [facility] ty of 23:59:00 [facility] LACTIC ACID WHOLE BLOOD 2022-06-20 [facility] ty of 23:59:00 [facility] CT ANGIOGRAM ABDOMEN/PELVIS 2022-06-20 Singer [facility] ersity of 20:21:56 [facility] CT ANGIOGRAM ABDOMEN/PELVIS 2022-06-20 Singer [facility] ersity of 20:21:56 [facility] URINALYSIS 2022-06-20 [facility] of 19:04:00 [facility] URINE CULTURE 2022-06-20 [facility] of 19:04:00 [facility] URINALYSIS 2022-06-20 Cohen, [facility] of 19:04:00 [facility] URINE CULTURE 2022-06-20 Cohen, [facility] of 19:04:00 [facility] XR CHEST 1 VW 2022-06-20 [facility] of 18:50:20 [facility] XR CHEST 1 VW 2022-06-20 [facility] of 18:50:20 [facility] BLOOD CULTURE SCREEN 2022-06-20 [facility] of 18:46:00 [facility] BLOOD CULTURE SCREEN 2022-06-20 [facility] of 18:46:00 [facility] BLOOD CULTURE SCREEN 2022-06-20 [facility] of 18:39:00 [facility] TROPONIN I 2022-06-20 [facility] of 18:39:00 [facility] COMP. METABOLIC PANEL ([id number]) 2022-06-20 Christopher Cohenip iversity of 18:39:00 [facility] CBC WITH DIFF 2022-06-20 Singer [facility] of 18:39:00 [facility] BLOOD CULTURE SCREEN 2022-06-20 [facility] of 18:39:00 [facility] TROPONIN I 2022-06-20 [facility] of 18:39:00 [facility] COMP. METABOLIC PANEL ([id number]) 2022-06-20 Christopher Cohenip iversity of 18:39:00 [facility] CBC WITH DIFF 2022-06-20 [facility] of 18:39:00 [facility] EKG-12 LEAD 2022-06-20 Singer [facility] of 18:38:36 [facility] EKG-12 LEAD 2022-06-20 [facility] of 18:38:36 [facility] LACTIC ACID WHOLE BLOOD 2022-06-20 Srinath Cohen Universi ty of 18:38:00 [facility] LACTIC ACID WHOLE BLOOD 2022-06-20 Srinath Cohen Universi ty of 18:38:00 [facility] EMERGENCY DEPARTMENT 2022-06-20 Doctor Unassigned, Universi ty of DOCUMENTS 05:01:00 [place] [facility] HOSPITAL ADMISSION 2022-06-20 Doctor Unassigned, [facility] of 05:01:00 [place] [facility] ASSIGNMENT OF BENEFITS 2021-05-07 Doctor Unassigned, [facility] of 21:31:03 [place] [facility] Plan of Care Planned Activity Planned Date Details Comments Source Future Scheduled 2022-09-[address] [facility] Test 00:00:00 (12+) [code = Medical Center DEPRESSION SCREENING (12+)] Future Scheduled 2022-09-11 FALLS RISK SCREENING [facility] Test 00:00:00 [code = FALLS RISK Medical C enter SCREENING] Future Scheduled 2022-05-12 INFLUENZA VACCINE (#1) C [...] Medical Ce nter VACCINE (#1)] Future Scheduled 2021-03-[address] [facility] Test 00:00:00 [facility] r Screening (12+) [code = Tobacco Cessation Counseling and Screening (12+)] Future Scheduled 2020-09-[address] [facility]00 measurement Medical Center (procedure) [code = 60744025] Future Scheduled 2020-09-[address] [facility] 00[facility]00 [facility] (procedure) [code = 87772800] Future Scheduled 2020-09-[address] [facility] 00[facility]:00 [facility] (procedure) [code = 51775975] Future Scheduled 2020-09-[address] [facility] 00:00:00 measurement [facility] Center (procedure) [code = 02004867] Future Scheduled 2020-09-[address] [facility] 00:00:00 [facility] (procedure) [code = 61886531] Future Scheduled 2020-09-[address] [facility] Test 00:00:00 (12+) [code = [facility] Center DEPRESSION SCREENING (12+)] Future Scheduled 2020-09-11 FALLS RISK SCREENING [facility] Test 00:00:00 [code = FALLS RISK Medical C enter SCREENING] Future Scheduled 2020-09-[address] [facility] Test 00:00:00 (12+) [code = [facility] Center DEPRESSION SCREENING (12+)] Future Scheduled 2020-09-11 FALLS RISK SCREENING [facility] Test 00:00:00 [code = FALLS RISK Medical C enter SCREENING] Future Scheduled 2002 PNEUMOCOCCAL 65+ YRS [facility] Test 00:00:00 (1 of 1 - [facility] Center [id number] PCV13) [code = PNEUMOCOCCAL 65+ YRS (1 of 1 - [id number] PCV13)] Future Scheduled 2002 PNEUMOCOCCAL 65+ YRS [facility] Test 00:00:00 (1 of 1 - [facility] Center [id number] PCV13) [code = PNEUMOCOCCAL 65+ YRS (1 of 1 - [id number]_Oaitwvv PCV13)] Future Scheduled 1999-11-11 MEDICARE ANNUAL CHI [...] 00:00:00 protein (procedure) Medical Center [code = 128137858] Future Scheduled [address] E[address] EXAM [facility] 00:00:00 [code = DIABETIC EYE Medical Center EXAM] Future Scheduled 1947 Urine screening for [facility] Test 00:00:00 protein (procedure) Medical Center [code = 953138925] Future Scheduled [address] EYE EXAM [facility] 00:00:00 [code = DIABETIC EYE Medical Center EXAM] Future Scheduled 1947 Urine screening for [facility] Test 00:00:00 protein (procedure) Medical Center [code = 815143559] Future Scheduled [address] EYE EXAM [facility] 00:00:00 [code = DIABETIC EYE Medical Center EXAM] Future Scheduled 1947 Urine screening for [facility] Test 00:00:00 protein (procedure) Medical Center [code = 546097064] Future Scheduled [address]AB[address]IC EYE EXAM [facility] 00:00:00 [code = DIABETIC EYE Medical Center EXAM] Future Scheduled 1947 Urine screening for [facility] Test 00:00:00 protein (procedure) Medical Center [code = 550831643] Future Scheduled 1943 PNEUMOCOCCAL 65+ YRS CHI [...] DXA [facility] 00:00:00 SCAN] [facility] Future Scheduled 1937 DXA SCAN [code = DXA [facility] Test 00:00:00 SCAN] [facility] Future Scheduled 1937 DXA SCAN [code = DXA [facility] Test 00:00:00 SCAN] [facility] Center Encounters Start End Encounter Admission Attending Care Care Encounter Source Date/Time Date/Time Type Type Clinicians Facility Department ID 2020-03-24 Inpatient ER [facility] [id number] [facility] 23:52:00 [facility] 2022-10-06 2022-10-08 Outpatient R KATE COOPER [facility] [id number] [facility] 06:20:00 13:18:00 DAYAMI storm [facility] 2022-10-06 2022-10-08 [facility] Harini Betancourt 1 .2.840.114 [id number] Univers 06:20:00 13:18:00 Encounter Dayami Love 350.1.1 3.10 ity [facility] 4.2.7.2.686 Shawn as [phone] [place] [address] [address] 2022-10-03 2022-10-03 Health And Physical Education Teacher Mark Kahn Lab Main [facility] 1.2.8 40.114 [id number] Univers 10:30:00 10:45:00 Visit Harini Betancourt [facility] 350.1 .13.10 ity of [place] [id number] Ut dical [facility] [address] [facility] 2022-10-03 2022-10-03 Outpatient R HARINI BETANCOURT [facility] [id number] Univers 10:30:00 10:30:00 HARINI BETANCOURT ity [facility] 2022-09-13 2022-09-13 Telephone VIKTORIA Betancourt 1.2.840.114 [id number] Univers 00:00:00 00:00:00 Choelgin RAYA 350.1.13.10 ity of [facility] 4.2.7.2.686 Shawn as [phone] [facility] [address] 2022-08-08 2022-08-08 Telephone Bryan VIKTORIA 1.2.840.114 [id number] Univers 00:00:00 00:00:00 Chowandaalinanika RAYA 350.1.13.10 ity of [facility] 4.2.7.2.686 Shawn as [id number] [facility] [address] 2022-08-03 2022-08-03 Outpatient R AHRINI BETANCOURT [facility] [id number] Univers 11:21:58 23:59:00 HARINI BETANCOURT ity [facility] 2022-08-03 2022-08-03 Hospital VIKTORIA Betancourt 1.2.840.114 [id number] Univers 11:00:00 23:59:00 Encounter Maria Elena RAYA 350.1.13.10 ity of [facility] 4.2.7.2.686 Shawn as [id number] [facility] [address] 2022-08-03 2022-08-03 Orders Doctor TRENT 1.2.840.114 [id number] Univers 00:00:00 00:00:00 Only Unassigned, RAYA 350.1.13.10 ity of [place] [facility] 4.2.7.2.686 Shawn as [phone] [facility] [address] 2022-07-14 2022-07-14 Outpatient R HARINI BETANCOURT [facility] [id number] Univers 16:30:12 23:59:00 HARINI BETANCOURT ity of [facility] 2022-07-14 2022-07-14 Hospital VIKTORIA Betancourt 1.2.840.114 [id number] Univers 16:30:12 23:59:00 Encounter Maria Elena SOY 350.1.13.10 ity of [facility] 4.2.7.2.686 Shawn as [phone] [place] [address] [place] 2022-07-14 2022-07-14 Telephone VIKTORIA Betancourt 1.2.840.114 [id number] Univers 00:00:00 00:00:00 Maria Elena RAYA 350.1.13.10 ity of [facility] 4.2.7.2.686 Shawn as [id number] [facility] [address] 2022-07-07 2022-07-07 Orders Doctor TRENT 1.2.840.114 [id number] Univers 00:00:00 00:00:00 Only Unassigned, RAYA 350.1.13.10 ity of [place] [facility] 4.2.7.2.686 Shawn as [phone] [facility] [address] 2022-06-27 2022-06-27 Transition NAM MaciasHernandez 1.2.840.114 [id number] Univers 00:00:00 00:00:00 of Care Jamil SHEPHERD 350.1.13.10 ity of [place] [id number] [facility] [address] 2022-06-20 2022-06-25 Inpatient X ALVERTO [facility] [id number] Univers 13:17:00 13:00:00 ACACIA ity of [facility] 2022-06-20 2022-06-25 [facility] Srinath Cohen 1.2.840.1 14 [id number] Univers 13:17:00 13:00:00 Encounter Acacia Del Toro 350.1.13. 10 ity of [facility] 4.2.7.2.686 [place] [id number] [facility] [address] 2022-06-24 2022-06-24 Surgery VIKTORIA Betancourt 1.2.840.114 [id number] Univers 08:35:00 09:20:00 Maria Elena SOY 350.1.13.10 ity of [facility] 4.2.7.2.686 Shawn as [phone] [facility] [address] 2021-05-10 2021-05-10 Nurse Therapy, Kevin Byrd [facility] 1.2. 840.114 [id number] Univers 19:27:33 20:27:33 Visit Unknown, [facility] 350.1.13.10 ity [place] [address].2.7.2.686 Shawn as Terrell?Blea [id number] [address] Medical Office [facility] 2021-05-10 2021-05-10 Outpatient R ARTHUR, [facility] [id number] Univers 19:30:00 19:30:00 ATTENDING ity [facility] 2021-05-09 2021-05-09 Telephone TRENT Tariq 1.2.738.752 [id number] Univers 00:00:00 00:00:00 Gessica Justyn RAYA 350.1.13.[address]2.686 Shawn as [phone] [facility] [address] 2021-05-07 2021-05-07 Laboratory Only, Kevin Db Test [facility] 1.2.8 40.114 [id number] Univers 17:11:44 17:31:44 Only Jud [facility] 350.1.13.10 ity of [address]2.686 Shawn as Terrell?Blea [id number] [address] Medical Office [facility] 2021-05-07 2021-05-07 Outpatient R [facility]OMA [facility] [id number] Univers 17:15:00 17:15:00 JUD ity [facility] 2021-05-07 2021-05-07 Outpatient R [facility] [id number] Univers 16:20:00 16:20:00 JUD ity [facility] 2021-05-07 2021-05-07 Orders Doctor TRENT 1.2.840.114 [id number] Univers 00:00:00 00:00:00 Only Unassigned, RAYA 350.1.13.10 ity of [place] [facility] 4.2.7.2.686 Shawn as [phone] [address] Results Test Description Test Time Test Comments Results Result Comments Source POCT GLUCOSE (AUTOMATED) 2022-10-08 15:06:32 Test Item Value Reference Range Interpretation Comme nts POCT GLU (test code = 5771006894) 162 mg/dL 70-110 H Lab Interpretation (test code = 06616-3) Abnormal [facility] GLUCOSE (AUTOMATED)2022-10-08 03:55:19 Test Item Value Reference Range Interpretation Comments POCT GLU (test code = 8092296844) 279 mg/dL 70-110 H Lab Interpretation (test code = Abnormal 44709-1) [facility] GLUCOSE (AUTOMATED)2022-10-08 03:11:05 Test Item Value Reference Range Interpretation Comments POCT GLU (test code = 4760885050) 322 mg/dL 70-110 H Lab Interpretation (test code = Abnormal 81213-6) [facility] / [id number] 17:14:10 Test Item Value Reference Range Interpretation Comments PROTIME PATIENT (test See_Comment [Auto mated message] code = 5964-2) The system wh ich generated this result transmitted ref erence range: 12.0 - 1 4.7 Seconds. The re ference range was not u sed to interpret this result as normal/abnor mal. INR (test code = 6301-6) Nor mal INR <1.1; Warfarin Therap eutic range 2.0 to 3. 0 or 2.5 to 3.5, dep ending upon the indica tions. Lab Interpretation (test Normal code = 38413-7) [facility] WITH [id number] 17:07:07 Test Item Value Reference Range Interpretation Comments WBC (test code = See_Comment [Automated 6690-2) message] The sy stem which generated this result transmitted reference range : 4.30 - 11.10 10*3/?L. The reference range was not used to interpret this result as normal/abnormal . RBC (test code = See_Comment [Automated 789-8) message] The sy stem which generated this result transmitted reference range : 3.93 - 5.25 10*6/?L. The reference range was not used to interpret this result as normal/abnormal . HGB (test code = 12.6 g/dL 11.6-15.0 718-7) HCT (test code = 38.3 % 35.7-45.2 4544-3) MCV (test code = 84.0 fL 80.6-95.5 787-2) MCH (test code = 27.6 pg 25.9-32.8 785-6) MCHC (test code = 32.9 g/dL 31.6-35.1 786-4) RDW-SD (test code = 47.4 fL 39.0-49.9 21199-4) RDW-CV (test code = 15.6 % 12.0-15.5 H 788-0) PLT (test code = See_Comment [Automated 777-3) message] The sy stem which generated this result transmitted reference range : 166 - 358 10*3/ ?L. The reference r fernando was not used to interpret this result as normal/abnormal . MPV (test code = 9.8 fL 9.5-12.9 86533-3) NRBC/100 WBC (test See_Comment [Automat ed code = 7652562375) message] The system which generated this result transmitted reference range : 0.0 - 10.0 /100 WBCs. The refer ence range was not u sed to interpret th is result as normal/abnormal . NRBC x10^3 (test code See_Comment [Auto mated = 2349178139) message] The s ystem which generated this result transmitted reference range : 10*3/?L. The reference range was not used to interpret this result as normal/abnormal . GRAN MAT (NEUT) % 54.5 % (test code = 770-8) IMM GRAN % (test code 0.40 % = 9598401575) LYMPH % (test code = 36.8 % 736-9) MONO % (test code = 7.0 % 5905-5) EOS % (test code = 1.1 % 713-8) BASO % (test code = 0.2 % 706-2) GRAN MAT x10^3(ANC) 2.96 10*3/uL 1.88-7.09 (test code = 9831966546) IMM GRAN x10^3 (test 0.00-0.06 code = 5076097607) LYMPH x10^3 (test code 2.00 10*3/uL 1.32-3.29 = 731-0) MONO x10^3 (test code 0.38 10*3/uL 0.33-0.92 = 742-7) EOS x10^3 (test code = 0.06 10*3/uL 0.03-0.39 711-2) BASO x10^3 (test code 0.01-0.07 = 704-7) Lab Interpretation Abnormal (test code = 57139-8) [facility] CampusMETANEPHRINES, [id number] 20:47:27 Test Item Value Reference Range Interpretation Comments METANEPH (test <0.10 0.00-0.49 code = 66077-9) NORMETNEPH (test 0.83 nmol/L 0.00-0.89 code = 95570-0) METAPF INT (test See Note INTERPRETIV E code = 29471-7) INFORMATION: Metanephrines, Plasma (Free) This nacho t is useful in the d etection of pheochromocy norman, a rare neuroendoc rine tumor. The maame rity of patients with pheochromocytom a have a plasma normetan ephrine concentration i n excess of 2.2 nmol/L a nd/or a metanephrine concentration i n excess of 1.1 nmol/L. Increased concentrations of these analytes serve as confirmation fo r diagnosis. Amy ents with essential hyper tension and plasma concentrations of normetanephrine below 0.9 nmol/L and a metanephrine concentration b elow 0.5 nmol/L, can be excluded from further te sting. If clinical suspic ion remains, repeat testing or testing for metanephrines i n a 24-hr. urine sp ecimen should be consi dered. This test was d eveloped and its perform ance characteristics determined by [facility]. I t has not been cleared or approved by the [place] Food and Drug Administration. This test was perfor med in a CLIA certified laboratory and is intended for cl inical purposes.Perfor med By: [facility] [address] [place], [place] [address]A aboratory Director: Juan Espinosa MD, PhD [facility] GLUCOSE (AUTOMATED)2022-06-25 17:12:53 Test Item Value Reference Range Interpretation Comments POCT GLU (test code = 9682004470) 200 mg/dL 70-110 H Lab Interpretation (test code = Abnormal 73005-0) [facility] GLUCOSE (AUTOMATED)2022-06-25 17:12:53 Test Item Value Reference Range Interpretation Comments POCT GLU (test code = 5751806194) 200 mg/dL 70-110 H Lab Interpretation (test code = Abnormal 03345-1) [facility] GLUCOSE (AUTOMATED)2022-06-25 14:20:12 Test Item Value Reference Range Interpretation Comments POCT GLU (test code = 6896026710) 171 mg/dL 70-110 H Lab Interpretation (test code = Abnormal 00841-2) [facility] GLUCOSE (AUTOMATED)2022-06-25 14:20:12 Test Item Value Reference Range Interpretation Comments POCT GLU (test code = 7901438597) 171 mg/dL 70-110 H Lab Interpretation (test code = Abnormal 64689-3) [facility] GLUCOSE (AUTOMATED)2022-06-25 01:30:55 Test Item Value Reference Range Interpretation Comments POCT GLU (test code = 3146183200) 207 mg/dL 70-110 H Lab Interpretation (test code = Abnormal 45667-5) [facility] GLUCOSE (AUTOMATED)2022-06-25 01:30:55 Test Item Value Reference Range Interpretation Comments POCT GLU (test code = 0591928138) 207 mg/dL 70-110 H Lab Interpretation (test code = Abnormal 95504-1) [facility] GLUCOSE (AUTOMATED)2022-06-24 22:26:40 Test Item Value Reference Range Interpretation Comments POCT GLU (test code = 0626621407) 195 mg/dL 70-110 H Lab Interpretation (test code = Abnormal 66061-2) [facility] GLUCOSE (AUTOMATED)2022-06-24 22:26:40 Test Item Value Reference Range Interpretation Comments POCT GLU (test code = 6903495444) 195 mg/dL 70-110 H Lab Interpretation (test code = Abnormal 95536-4) [facility] GLUCOSE (AUTOMATED)2022-06-24 18:07:03 Test Item Value Reference Range Interpretation Comments POCT GLU (test code = 7977276686) 376 mg/dL 70-110 H Lab Interpretation (test code = Abnormal 80566-7) [facility] GLUCOSE (AUTOMATED)2022-06-24 18:07:03 Test Item Value Reference Range Interpretation Comments POCT GLU (test code = 3683835280) 376 mg/dL 70-110 H Lab Interpretation (test code = Abnormal 98496-6) [facility]20[facility] 17:45:35 Test Item Value Reference Range Interpretation Comments MAGNESIUM (test code = 8045730861) 1.9 mg/dL 1.7-2.4 Lab Interpretation (test code = Normal 11550-7) [facility] METABOLIC PANEL (NA, K, CL, CO2, GLUCOSE, BUN, CREATININE, CA)2022-06-24 17:45:35 Test Item Value Reference Range Interpretation Comments NA (test code = 137 mmol/L 135-145 0488113696) K (test code = 3.3 mmol/L 3.5-5 L 7374894521) CL (test code = 101 mmol/L 98-108 8989928009) CO2 TOTAL (test code = 25 mmol/L 23-31 7155798846) AGAP (test code = 2-16 9628432855) BUN (test code = 17 mg/dL 7-23 0043882619) GLUCOSE (test code = 264 mg/dL 70-110 H 3946925220) CREATININE (test code = 0.94 mg/dL 0.5-1.04 4657496643) CALCIUM (test code = 9.1 mg/dL 8.6-10.6 1755018606) eGFR (test code = mL/min/1.73m2 4616646781) WINDY (test code = WINDY) Association of [...] tests). Lab Interpretation Abnormal (test code = 42509-4) [facility]2022-10-14 17:45:35 Test Item Value Reference Range Interpretation Comments MAGNESIUM (test code = 2229336256) 1.9 mg/dL 1.7-2.4 Lab Interpretation (test code = Normal 39860-0) [facility] METABOLIC PAN[facility] (NA, K, CL, CO2, GLUCOSE, BUN, CREATININE, CA)2022-06-24 17:45:35 Test Item Value Reference Range Interpretation Comments NA (test code = 137 mmol/L 135-145 5555577475) K (test code = 3.3 mmol/L 3.5-5 L 3988457083) CL (test code = 101 mmol/L 98-108 5988724621) CO2 TOTAL (test code = 25 mmol/L 23-31 0964237770) AGAP (test code = 2-16 8474070682) BUN (test code = 17 mg/dL 7-23 5853962191) GLUCOSE (test code = 264 mg/dL 70-110 H 7540171766) CREATININE (test code = 0.94 mg/dL 0.5-1.04 2506150777) CALCIUM (test code = 9.1 mg/dL 8.6-10.6 6221552420) eGFR (test code = mL/min/1.73m2 8380740852) WINDY (test code = WINDY) Association of [...] tests). Lab Interpretation Abnormal (test code = 63330-9) [facility] WITHOUT [id number] 17:37:52 Test Item Value Reference Range Interpretation Comments WBC (test code = 6690-2) See_Comment [A utomated message] The system [employer] generated this result transmit timur reference range : 4.30 - 11.10 10*3/?L. The reference range was not used to interpret this result as normal/abnormal . RBC (test code = 789-8) See_Comment [Au tomated message] The system [employer] generated this result transmit timur reference range [...] 777-3) See_Comment [Au tomated message] The system [facility] generated this result transmit timur reference range : 166 - 358 10*3/?L. The reference range was not used to interpret this result as normal/abnormal . MPV (test code = 9.0 fL 9.5-12.9 L 99056-4) RDW-CV (test code = 16.6 % 12-15.5 H 788-0) RDW-SD (test code = 44.0 fL 39-49.9 96236-7) NRBC x10^3 (test code = See_Comment [Au tomated message] 9787147726) The system [facility] generated this result transmit timur reference range : 10*3/?L. The reference range was not used to interpret this result as normal/abnormal . NRBC/100 WBC (test code See_Comment [Au tomated message] = 7805116759) The system [facility] generated this result transmit timur reference range : 0.0 - 10.0 /100 WBC s. The reference r fernando was not used to interpret this result as normal/abnormal . IPF % (test code = 6066152588) Lab Interpretation (test Abnormal code = 26904-9) [facility] WITHOUT [id number] 17:37:52 Test Item Value Reference Range Interpretation Comments WBC (test code = 6690-2) See_Comment [A utomated message] The system [facility] generated this result transmit timur reference range : 4.30 - 11.10 10*3/?L. The reference range was not used to interpret this result as normal/abnormal . RBC (test code = 789-8) See_Comment [Au tomated message] The system [employer] generated this result transmit timur reference range [...] 777-3) See_Comment [Au tomated message] The system [employer] generated this result transmit timur reference range : 166 - 358 10*3/?L. The reference range was not used to interpret this result as normal/abnormal . MPV (test code = 9.0 fL 9.5-12.9 L 63958-7) RDW-CV (test code = 16.6 % 12-15.5 H 788-0) RDW-SD (test code = 44.0 fL 39-49.9 12935-6) NRBC x10^3 (test code = See_Comment [Au tomated message] 4649716600) The system [employer] generated this result transmit timur reference range : 10*3/?L. The reference range was not used to interpret this result as normal/abnormal . NRBC/100 WBC (test code See_Comment [Au tomated message] = 0807655204) The system [facility] generated this result transmit timur reference range : 0.0 - 10.0 /100 WBC s. The reference r fernando was not used to interpret this result as normal/abnormal . IPF % (test code = 6002094693) Lab Interpretation (test Abnormal code = 72168-0) [facility] GLUCOSE (AUTOMATED)2022-06-24 13:05:03 Test Item Value Reference Range Interpretation Comments POCT GLU (test code = 0695548562) 175 mg/dL 70-110 H Lab Interpretation (test code = Abnormal 64942-4) [facility]2022-06-24 13:05:03 Test Item Value Reference Range Interpretation Comments POCT GLU (test code = 2210237560) 175 mg/dL 70-110 H Lab Interpretation (test code = Abnormal 90945-0) [facility]2022-06-24 03:59:23 Test Item Value Reference Range Interpretation Comments POCT GLU (test code = 6168898328) 200 mg/dL 70-110 H Lab Interpretation (test code = Abnormal 75630-9) [facility]2022-06-24 03:59:23 Test Item Value Reference Range Interpretation Comments POCT GLU (test code = 9362059141) 200 mg/dL 70-110 H Lab Interpretation (test code = Abnormal 30300-3) [facility] GLUCOSE (AUTOMATED)2022-06-23 22:39:44 Test Item Value Reference Range Interpretation Comments POCT GLU (test code = 7121488718) 210 mg/dL 70-110 H Lab Interpretation (test code = Abnormal 10224-0) [facility]2022-06-23 22:39:44 Test Item Value Reference Range Interpretation Comments POCT GLU (test code = 3393950221) 210 mg/dL 70-110 H Lab Interpretation (test code = Abnormal 16839-7) [facility] 17:10:04 Test Item Value Reference Range Interpretation Comments POCT GLU (test code = 6082176897) 189 mg/dL 70-110 H Lab Interpretation (test code = Abnormal 81636-1) [facility]2022-06-23 17:10:04 Test Item Value Reference Range Interpretation Comments POCT GLU (test code = 4909959472) 189 mg/dL 70-110 H Lab Interpretation (test code = Abnormal 11028-4) [facility]2022-06-23 12:33:02 Test Item Value Reference Range Interpretation Comments POCT GLU (test code = 1425184690) 193 mg/dL 70-110 H Lab Interpretation (test code = Abnormal 22198-8) [facility] 12:33:02 Test Item Value Reference Range Interpretation Comments POCT GLU (test code = 7944698813) 193 mg/dL 70-110 H Lab Interpretation (test code = Abnormal 59985-5) [facility] [facility]SE (AUTOMATED)2022-06-23 02:42:00 Test Item Value Reference Range Interpretation Comments POCT GLU (test code = 7246631540) 166 mg/dL 70-110 H Lab Interpretation (test code = Abnormal 03353-1) [facility] GLUCOSE (AUTOMATED)2022-06-23 02:42:00 Test Item Value Reference Range Interpretation Comments POCT GLU (test code = 8042332743) 166 mg/dL 70-110 H Lab Interpretation (test code = Abnormal 19971-5) [facility] [id number] 23:14:43 Test Item Value Reference Range Interpretation Comments PHOSPHORUS (test code = 3.1 mg/dL 2.5-5 Slig ht hemolysis 1658604156) Lab Interpretation (test Normal code = 76317-8) [facility] [id number] 23:14:43 Test Item Value Reference Range Interpretation Comments PHOSPHORUS (test code = 3.1 mg/dL 2.5-5 Slig ht hemolysis 7093965253) Lab Interpretation (test Normal code = 02347-2) [facility] GLUCOSE (AUTOMATED)2022-06-22 22:01:14 Test Item Value Reference Range Interpretation Comments POCT GLU (test code = 1716534518) 216 mg/dL 70-110 H Lab Interpretation (test code = Abnormal 67097-3) [facility] GLUCOSE (AUTOMATED)2022-06-22 22:01:14 Test Item Value Reference Range Interpretation Comments POCT GLU (test code = 8159393393) 216 mg/dL 70-110 H Lab Interpretation (test code = Abnormal 04139-8) [facility] GLUCOSE (AUTOMATED)2022-06-22 16:56:03 Test Item Value Reference Range Interpretation Comments POCT GLU (test code = 1671686711) 170 mg/dL 70-110 H Lab Interpretation (test code = Abnormal 99847-3) [facility] GLUCOSE (AUTOMATED)2022-06-22 16:56:03 Test Item Value Reference Range Interpretation Comments POCT GLU (test code = 6795819940) 170 mg/dL 70-110 H Lab Interpretation (test code = Abnormal 74822-5) [facility] GLUCOSE (AUTOMATED)2022-06-22 13:15:17 Test Item Value Reference Range Interpretation Comments POCT GLU (test code = 5668233487) 186 mg/dL 70-110 H Lab Interpretation (test code = Abnormal 51850-7) [facility] GLUCOSE (AUTOMATED)2022-06-22 13:15:17 Test Item Value Reference Range Interpretation Comments POCT GLU (test code = 6823689853) 186 mg/dL 70-110 H Lab Interpretation (test code = Abnormal 44716-5) [facility] GLUCOSE (AUTOMATED)2022-06-22 00:55:28 Test Item Value Reference Range Interpretation Comments POCT GLU (test code = 8873993020) 201 mg/dL 70-110 H Lab Interpretation (test code = Abnormal 85845-3) [facility] GLUCOSE (AUTOMATED)2022-06-22 00:55:28 Test Item Value Reference Range Interpretation Comments POCT GLU (test code = 8156581201) 201 mg/dL 70-110 H Lab Interpretation (test code = Abnormal 63358-0) [facility] 22:48:56 Test Item Value Reference Range Interpretation Comments Height (test code = in 2646967399) Weight (test code = lbs 9542354701) Systolic BP (test code = mmHg 9270920201) Diastolic BP (test code mmHg = 8970753694) Heart Rate (test code = bpm 1310790714) LVOT stroke volume (test 79.70 cm3 code = 2084419202) EF(Teich) (test code = 56.30 % 0227300624) LVIDD (test code = 4.60 cm 0096778738) LVIDS (test code = 3.30 cm 4609713664) Left Ventricular End 43.5 mL Systolic Volume by Teichholz Method (test code = 7756030) Left Ventricular End 99.6 mL Diastolic Volume by Teichholz Method (test code = 7178440) IVS (test code = 1.19 cm 4720834562) LVPWD (test code = 1.08 cm 0270260260) LVOT diameter (test code 2.05 cm = 0169181333) LVOT area (test code = 3.30 cm2 8539088553) FS (test code = 29 % 8841711918) MV Peak E Tian (test code 84.6 cm/s = 7720922098) MV Peak A Tian (test code 110.3 cm/s = 5735325150) E/A ratio (test code = ratio 2629506355) E wave decelartion time 0.25 s (test code = 5399834129) MV E/e' septal (test 4.0 cm/s code = 4145832167) LA Volume Index (BP) 36.7 mL/m2 (test code = 4747736545) LA volume (BP) (test 65.4 mL code = 6725852321) LVOT peak tian (test code 100.1 cm/s = 0310204012) LVOT mn grad (test code mmHg = 5737879873) BSA (test code = 1.78 m2 4417125142) LA size (test code = 3.4 cm 8657727273) LAV(MOD-sp2) (test code 61.30 mL = 3904961094) LAV(MOD-sp4) (test code 58.90 mL = 3894907661) Tapse (test code = 2.48 cm 2941591262) AV LVOT peak gradient mmHg (test code = 4240946538) LVOT peak VTI (test code 24.2 cm = 8859858427) LV V1 mean (test code = 64.80 cm/s 3735127777) MV Prop V (test code = 31.70 cm/s 3047616586) Ao root diam (test code 3.40 cm = 0255060514) Aortic root (test code = 3.4 cm 2480185511) Ao root annulus (test 3.4 cm code = 6880534205) PW (test code = 1.08 cm 0.6-1.6 1980718190) EF - 2D (test code = 56.30 % 66694640) Interventricular Septum 1.19 cm Diastolic Thickness by 2D (test code = 4258473) Left Ventricular Cardiac 4.8 L/min Output (test code = 3510308) Aortic HR (test code = BPM 6777230148) Aortic valve mean 86.9 cm/s velocity (test code = 2148564519) Ao peak tian (test code = 153.7 cm/s 0996216499) Ao VTI (test code = 33.7 cm 0761036844) AV area by cont VTI 2.4 cm2 (test code = 6874075525) AV area peak tian (test 2.2 cm2 code = 6903459886) Ao max PG (test code = 9.40 mm[Hg] 0305624344) AV peak gradient (test mmHg code = 1533846699) AV valve area (test code 2.37 cm2 = 6696973499) AV mean gradient (test mmHg code = 4541931685) IVC Diam Exp(MM) (test 1.87 cm code = 3954821097) IVC Diam Ins(MM) (test 0.78 cm code = 9480820036) Radiology Study observation (narrative) (test code = 70828-5) WINDY (test code = WINDY) ?Left?Ventricle: Left [...] enhancing agent used. Patient exhibited sinus bradycardia. [facility] 22:48:56 Test Item Value Reference Range Interpretation Comments Height (test code = in 9812628889) Weight (test code = lbs 1067370925) Systolic BP (test code = mmHg 5679085476) Diastolic BP (test code mmHg = 5008057424) Heart Rate (test code = bpm 5712187022) LVOT stroke volume (test 79.70 cm3 code = 7564543330) EF(Teich) (test code = 56.30 % 1513639112) LVIDD (test code = 4.60 cm 5448804487) LVIDS (test code = 3.30 cm 7651578173) Left Ventricular End 43.5 mL Systolic Volume by Teichholz Method (test code = 1895675) Left Ventricular End 99.6 mL Diastolic Volume by Teichholz Method (test code = 3223494) IVS (test code = 1.19 cm 8178452145) LVPWD (test code = 1.08 cm 7830350324) LVOT diameter (test code 2.05 cm = 9410921716) LVOT area (test code = 3.30 cm2 7768312935) FS (test code = 29 % 2686619017) MV Peak E Tian (test code 84.6 cm/s = 7913501000) MV Peak A Tian (test code 110.3 cm/s = 6957403531) E/A ratio (test code = ratio 8093510962) E wave decelartion time 0.25 s (test code = 6902290073) MV E/e' septal (test 4.0 cm/s code = 3443616048) LA Volume Index (BP) 36.7 mL/m2 (test code = 9931616023) LA volume (BP) (test 65.4 mL code = 5044408430) LVOT peak tian (test code 100.1 cm/s = 7685464803) LVOT mn grad (test code mmHg = 6347948321) BSA (test code = 1.78 m2 9536584422) LA size (test code = 3.4 cm 1341594475) LAV(MOD-sp2) (test code 61.30 mL = 4188618118) LAV(MOD-sp4) (test code 58.90 mL = 1135006387) Tapse (test code = 2.48 cm 1362579517) AV LVOT peak gradient mmHg (test code = 1902268580) LVOT peak VTI (test code 24.2 cm = 2353101852) LV V1 mean (test code = 64.80 cm/s 0434437873) MV Prop V (test code = 31.70 cm/s 4931158624) Ao root diam (test code 3.40 cm = 4782187990) Aortic root (test code = 3.4 cm 8251718433) Ao root annulus (test 3.4 cm code = 4935156227) PW (test code = 1.08 cm 0.6-1.3 1503394829) EF - 2D (test code = 56.30 % 96879111) Interventricular Septum 1.19 cm Diastolic Thickness by 2D (test code = 2674190) Left Ventricular Cardiac 4.8 L/min Output (test code = 1990997) Aortic HR (test code = BPM 2448755901) Aortic valve mean 86.9 cm/s velocity (test code = 1906082637) Ao peak tian (test code = 153.7 cm/s 4497183341) Ao VTI (test code = 33.7 cm 8721495465) AV area by cont VTI 2.4 cm2 (test code = 7851631768) AV area peak tian (test 2.2 cm2 code = 9610313032) Ao max PG (test code = 9.40 mm[Hg] 2740629825) AV peak gradient (test mmHg code = 8632265805) AV valve area (test code 2.37 cm2 = 3584712611) AV mean gradient (test mmHg code = 4386343911) IVC Diam Exp(MM) (test 1.87 cm code = 3655409793) IVC Diam Ins(MM) (test 0.78 cm code = 3169054844) Radiology Study observation (narrative) (test code = 25938-6) WINDY (test code = WINDY) ?Left?Ventricle: Left [...] enhancing agent used. Patient exhibited sinus bradycardia. [facility] GLUCOSE (AUTOMATED)2022-06-21 21:50:29 Test Item Value Reference Range Interpretation Comments POCT GLU (test code = 1422125392) 181 mg/dL 70-110 H Lab Interpretation (test code = Abnormal 85579-8) [facility] GLUCOSE (AUTOMATED)2022-06-21 21:50:29 Test Item Value Reference Range Interpretation Comments POCT GLU (test code = 5907119267) 181 mg/dL 70-110 H Lab Interpretation (test code = Abnormal 77872-1) [facility] GLUCOSE (AUTOMATED)2022-06-21 20:55:06 Test Item Value Reference Range Interpretation Comments POCT GLU (test code = 6011023747) 159 mg/dL 70-110 H Lab Interpretation (test code = Abnormal 31815-9) [facility] GLUCOSE (AUTOMATED)2022-06-21 20:55:06 Test Item Value Reference Range Interpretation Comments POCT GLU (test code = 1778452671) 159 mg/dL 70-110 H Lab Interpretation (test code = Abnormal 06419-8) [facility]-GLUCOSE [id number] 11:32:00 Test Item Value Reference Range Interpretation Comments POC-GLUCOSE METER 235 mg/dL 70-110 H : TESTED A T [facility] 6720 (BEAKER) (test code = [facility] [place] [facility], 1538) [address]: Atomic Physics Professor/Techni chika ID = [id number] for QUEEN LASSITER POCT-GLUCOSE [id number] 07:37:00 Test Item Value Reference Range Interpretation Comments POC-GLUCOSE METER 190 mg/dL 70-110 H : TESTED A T [facility] 6720 (BEAKER) (test code = [facility] [place] [facility], 1538) [address]: Atomic Physics Professor/Techni chika ID = [id number] for QUEEN LASSITER CBC W/PLT COUNT & AUTO [id number] 06:10:00 Test Item Value Reference Range Interpretation [...] PERCENT (BEAKER) (test code = 2801) POCT-GLUCOSE [id number] 22:16:00 Test Item Value Reference Range Interpretation Comments POC-GLUCOSE METER 275 mg/dL 70-110 H : TESTED A T [facility] 6720 (BEAKER) (test code = [facility], 1538) 90[address]: Atomic Physics Professor/Techni chika ID = [id number] for IDANIA RODRÍGUEZ YRIS POCT-GLUCOSE [id number] 16:44:00 Test Item Value Reference Range Interpretation Comments POC-GLUCOSE METER 200 mg/dL 70-110 H : TESTED A T [facility] 6720 (BEAKER) (test code = [facility], 1538) 68688: Atomic Physics Professor/Techni chika ID = [id number] for QUEEN LASSITER POCT-GLUCOSE [id number] 12:11:00 Test Item Value Reference Range Interpretation Comments POC-GLUCOSE METER 180 mg/dL 70-110 H : TESTED A T [facility] 6720 (BEAKER) (test code = [facility], 1538) 11497: Atomic Physics Professor/Techni chika ID = [id number] for SHAYY ALBRIGHT POCT-GLUCOSE [id number] 08:17:00 Test Item Value Reference Range Interpretation Comments POC-GLUCOSE METER 158 mg/dL 70-110 H : TESTED A T [facility] 6720 (BEAKER) (test code = [facility], 1538) 61380: Atomic Physics Professor/Techni chika ID = [id number] for SHAYY ALBRIGHT CBC W/PLT COUNT & AUTO [id number] 04:14:00 Test Item Value Reference Range Interpretation [...] PERCENT (BEAKER) (test code = 2801) POCT-GLUCOSE [id number] 16:12:00 Test Item Value Reference Range Interpretation Comments POC-GLUCOSE METER 233 mg/dL 70-110 H : TESTED A T [facility] 6720 (BEAKER) (test code = [facility], 1538) 82810: Atomic Physics Professor/Techni chika ID = [id number] for NW PHILL ALEXANDEROMA POCT-GLUCOSE [id number] 12:02:00 Test Item Value Reference Range Interpretation Comments POC-GLUCOSE METER 190 mg/dL 70-110 H : TESTED A T [facility] 6720 (BEAKER) (test code = [facility], 1538) 22291: Atomic Physics Professor/Techni chika ID = [id number] for NW PHILL ALEXANDEROMA STOOL CULTURE + SHIGA [id number] 09:19:00 Test Item Value Reference Range Interpretation Comments CULTURE (BEAKER) No Salmonella, Shigella (test code = 1095) or Campylobacter isolated POCT-GLUCOSE [id number] 07:46:00 Test Item Value Reference Range Interpretation Comments POC-GLUCOSE METER 174 mg/dL 70-110 H : TESTED A T [facility] 6720 (BEAKER) (test code = [facility], 1538) 78363: Atomic Physics Professor/Techni chika ID = [id number] for NW SHAYY ALEXANDER CBC W/PLT COUNT & AUTO [id number] 06:53:00 Test Item Value Reference Range Interpretation [...] 0-1 PERCENT (BEAKER) (test code = 2801) [id number] 06:20:00 Test Item Value Reference Range Interpretation Comments MAGNESIUM (BEAKER) 1.7 mg/dL 1.6-2.6 Specimen slightly (test code = 627) hemolyzed Atomic Physics Professor ID - LATA WBASIC METABOLIC [id number] 06:20:00 Test Item Value Reference Range Interpretation [...] S NOT APPLICABLE FOR DIALYSIS PATIEN TS. Atomic Physics Professor ID Suman GUIDO WHEPATIC FUNCTION [id number] 06:20:00 Test Item Value Reference Range Interpretation [...] Specimen slightly (test code = 347) hemolyzed Atomic Physics Professor ID - LATA WPOCT-GLUCOSE [id number] 21:46:00 Test Item Value Reference Range Interpretation Comments POC-GLUCOSE METER 181 mg/dL 70-110 H : TESTED A T [facility] 6720 (BEAKER) (test code = DINA Ortega [facility], 1538) 201[address]: Atomic Physics Professor/Techni chika ID = [id number] for JEREMY GUPTA CT, BRAIN, WITHOUT [id number] 18:11:00FINAL REPORT CT, BRAIN, WITHOUT CONTRAST INDICATION: [...] is recommended for further characterization. Signed: Annmarie Burchort Verified Date/Time: 03/26/2020 18:11:57 POCT-GLUCOSE [id number] 17:31:00 Test Item Value Reference Range Interpretation Comments POC-GLUCOSE METER 209 mg/dL 70-110 H : Notified RN/MD: (BEAKER) (test code = TESTED AT [facility] 6720 1538) [facility], [address]: Atomic Physics Professor/Techni chika ID = [id number] for MEERA LEMOS SHIGA TOXIN [id number] 15:19:00 Test Item Value Reference Range Interpretation Comments SHIGA TOXIN 1 (BEAKER) (test Not detected Not detected code = 2177) SHIGA TOXIN 2 (BEAKER) (test Not detected Not detected code = 2179) POCT-GLUCOSE [id number] 11:53:00 Test Item Value Reference Range Interpretation Comments POC-GLUCOSE METER 159 mg/dL 70-110 H : [facility] (BEAKER) (test code = [facility], 1538) 25961: Atomic Physics Professor/Techni chika ID = [id number] for SANDRA HOLLIS STOOL PATH [id number] 11:36:00 Test Item Value Reference Range Interpretation Comments PATHOGEN EXAM CHARGED (BEAKER) (test Done code = 2381) POCT-GLUCOSE [id number] 07:11:00 Test Item Value Reference Range Interpretation Comments POC-GLUCOSE METER 146 mg/dL 70-110 H : [facility] (BEAKER) (test code = [facility], 1538) 94751: Atomic Physics Professor/Techni chika ID = [id number] for SUMIT DIALLO MILY [id number] 06:04:00 Test Item Value Reference Range Interpretation Comments MAGNESIUM (BEAKER) (test code = 1.9 mg/dL 1.6-2.6 627) Atomic Physics Professor ID - PIAYA LBASIC METABOLIC [id number] 06:04:00 Test Item Value Reference Range Interpretation [...] S NOT APPLICABLE FOR DIALYSIS PATIEN TS. Atomic Physics Professor ID - PIAYA LHEPATIC FUNCTION [id number] 06:04:00 Test Item Value Reference Range Interpretation [...] (test code = 15 U/L 6-55 347) Atomic Physics Professor JAIME - PITYREE LCBC W/PLT COUNT & AUTO [id number] 05:20:00 Test Item Value Reference Range Interpretation [...] PERCENT (BEAKER) (test code = 2801) POCT-GLUCOSE [id number] 21:12:00 Test Item Value Reference Range Interpretation Comments POC-GLUCOSE METER 154 mg/dL 70-110 H : TESTED Lilli Mendez [facility] 6720 (BEAKER) (test code = [place], 1538) [address]: Atomic Physics Professor/Techni chika ID = [id number] for JEREMY GUPTA POCT-GLUCOSE [id number] 17:43:00 Test Item Value Reference Range Interpretation Comments POC-GLUCOSE METER 152 mg/dL 70-110 H : TESTED A T [facility] 6720 (CALI) (test code = [place], 1538) [address]: Atomic Physics Professor/Techni chika ID = [id number] for [place] SARS-COV2/RT-PCR ([facility])2020-03-25 13:40:00 Test Item Value Reference Range Interpretation Comments SARS-COV2/RT-PCR (test code = Negative Not Detected, Negative 1787636) SARS-COV-2 PERFORMING LAB [facility] (test code = 9081470) Negative result for this test determines that [...] of the Act.Fact Sheet for Healthcare Prov iders:https://www.[employer]/sites/default/files/product/documents/Fact_Sheet_HC _Sdgbtkupc_Kmmi_QFNR-RtJ-9.pdfFact Sheet for Healthcare Patients:https://www.[employer]/sites/default/files/product/docume nts/Gctu_Timoa_Wronedhs_Okmw_QHUO-RlF-5.pdfPerforming Laboratory:[facility], [place] [address]ENEH-FCCGHMN METER 2020-03-25 11:24:00 Test Item Value Reference Range Interpretation Comments POC-GLUCOSE METER 165 mg/dL 70-110 H : TESTED A T [facility] 6720 (BEAKER) (test code = DINA Ortega [facility], 1538) 67[address]: Atomic Physics Professor/Techni chika ID = [id number] for SANDRA HOLLIS TSH/FREE T4 IF [id number] 10:59:00 Test Item Value Reference Range Interpretation Comments THYROID STIMULATING HORMONE 0.622 uIU/mL 0.350-4.940 (BEAKER) (test code = 772) Atomic Physics Professor ID - WAGNER LHEMOGLOBIN [id number] 10:59:00 Test Item Value Reference Range Interpretation Comments HEMOGLOBIN A1C (BEAKER) (test code = 6.9 % 4.3-6.1 H 368) TROPONIN [id number] 10:50:00 Test Item Value Reference Range Interpretation [...] failure, acidosis, acute neurological disease, and persistent tachyarrhythmia.Atomic Physics Professor ID - PIAYA LBASIC METABOLIC [id number] 10:42:00 Test Item Value Reference Range Interpretation [...] S NOT APPLICABLE FOR DIALYSIS PATIEN TS. Atomic Physics Professor ID - WAGNER EPATIC FUNCTION [id number] 10:42:00 Test Item Value Reference Range Interpretation [...] (test code = 10 U/L 6-55 347) Atomic Physics Professor ID - WAGNER [id number] 10:41:00 Test Item Value Reference Range Interpretation Comments PHOSPHORUS (BEAKER) (test code = 3.2 mg/dL 2.3-4.7 604) Atomic Physics Professor ID - WAGNER [id number] 10:41:00 Test Item Value Reference Range Interpretation Comments MAGNESIUM (BEAKER) (test code = 2.0 mg/dL 1.6-2.6 627) Atomic Physics Professor ID - WAGNER PLUNKETTOCT-GLUCOSE [id number] 09:10:00 Test Item Value Reference Range Interpretation Comments POC-GLUCOSE METER 116 mg/dL 70-110 H : TESTED A T [facility] 6720 (BEAKER) (test code = [place], 1538) [address]: Atomic Physics Professor/Techni chika ID = [id number] for LANCE TRACEY RAD, CHEST, 1 VIEW, NON [id number] 07:49:00Reason for exam:->chest painShould this be performed at the bedside?->YesFINAL REPORT CLINICAL HISTORY: chest pain TECHNIQUE: 1 view of the chest. COMPAR NIEVES: None IMPRESSION: There are linear bandlike opacities in the bilateral mid and lower lungs. There are no significant effusions. The cardiomediastinal silhouette is magnified by technique. Signed: Keturah Mensah MDReport Verified Date/Time: 03/25/2020 07:49:59 Reading Location: [facility] Radiology Reading Room C. DIFFICILE GDH [id number] 06:54:00 Test Item Value Reference Range Interpretation Comments CDT TOXIN (test code Negative Negative = 4878708024) CDT GDH ANTIGEN (test Negative Negative No ind ication of code = 5444447677) Clostridi um difficile infection and n o colonization. Discontinue ent perez isolation and t herapy. Testing performed by [employer] Rapid Cassette Assay. For GDH, published sensitivity of the assay is 98.7% compared to cytotoxicity testing. For Toxin AB, published sensitivity is 87.8% and specificity 99.4% compared to cytotoxicity testing.Verification of kit performance was done by the [facility] prior to clinical use.URINALYSIS WITH MICROSCOPIC IF [id number] 06:35:00 Test Item Value Reference Range Interpretation [...] = 463) SOURCE(BEAKER) (test code = 2795) Atomic Physics Professor ID - [auto]Atomic Physics Professor ID - techURINALYSIS [id number] 06:35:00 Test Item Value Reference Range Interpretation Comments RBC UA (BEAKER) (test code = 519) 3 /HPF WBC UA (BEAKER) (test code = 520) 11 /HPF BACTERIA (BEAKER) (test code = 517) Rare SQUAMOUS EPITHELIAL (BEAKER) (test 1 /HPF code = 516) Atomic Physics Professor ID - techPOCT-GLUCOSE [id number] 05:08:00 Test Item Value Reference Range Interpretation Comments POC-GLUCOSE METER 128 mg/dL 70-110 H : TESTED A T [facility] 6720 (BEAKER) (test code = [place], 1538) [address]: Atomic Physics Professor/Techni chika ID = [id number] for As Meena beckett"
--- NOTE | 2022-10-10 07:42 | ER ---
Nurse's Notes [facility] Name: Skylar Grossman Age: 87 yrs Sex: Female : 1935 Arrival Date: 10/10/2022 Time: 07:16 Bed 5 Private MD: Diagnosis: Unspecified injury of head, initial encounter;Traumatic subdural hemorrhage;Fall on same level, unspecified Presentation: 10/10 07:15 Chief complaint: EMS states: ROLL OUT OF BED WITH OCCIPITAL HEMATOMA. Coronavirus bp screen: At this time, the client does not indicate any symptoms associated with coronavirus-19. Ebola Screen: No symptoms or risks identified at this time. Initial Sepsis Screen: Does the patient meet any 2 criteria? No. Patient's initial sepsis screen is negative. Does the patient have a suspected source of infection? No. Patient's initial sepsis screen is negative. Risk Assessment: Do you want to hurt yourself or someone else? Patient reports no desire to harm self or others. Onset of symptoms was October 10, 2022 at 06:45. 07:15 Method Of Arrival: EMS: [facility] bp 07:15 Acuity: FARIDA 3 bp Triage Assessment: 07:24 General: Appears in no apparent distress. Behavior is cooperative, appropriate for age, bp anxious. Pain: Complains of pain in scalp. EENT: No deficits noted. Neuro: No deficits noted. Cardiovascular: No deficits noted. Respiratory: No deficits noted. GI: No signs and/or symptoms were reported involving the gastrointestinal system. : No signs and/or symptoms were reported regarding the genitourinary system. Derm: No deficits noted. Musculoskeletal: No deficits noted. Injury Description: Bruise sustained to scalp. Historical: - Allergies: 07:24 Codeine (Upset stomach); bp 07:24 meperidine HCl; bp 07:24 Morphine; bp - PMHx: 07:24 CVA; Dementia; Depression; Diabetes - IDDM; GERD; High Cholesterol; Hypertension; bp Cardiac pacemaker in situ; - PSHx: 07:24 Appendectomy; Cholecystectomy; Total abdominal hysterectomy; bp - Immunization history:: Adult Immunizations up to date. - Social history:: Smoking status: Patient denies any tobacco usage or history of. - Family history:: not pertinent. - Hospitalizations: : No recent hospitalization is reported. Screenin:02 [facility] ED Fall Risk Assessment (Adult) History of falling in the last 3 months, bp including since admission Yes- single mechanical fall (1 pt). Abuse screen: Denies threats or abuse. Denies injuries from another. Nutritional screening: No deficits noted. Tuberculosis screening: No symptoms or risk factors identified. Assessment: 07:20 General: SEE TRIAGE NOTE. bp 08:20 Reassessment: TRANSFER PENDING. SDH NOTED ON CT. bp 09:20 Reassessment: REPORT TO DORY WHITT FOR [facility] ER COMPLETE. TRANSPORT PENDING. bp 09:45 Reassessment: TRANSPORT AT B/S. bp Vital Signs: 07:15 BP 182 / 85; Pulse 87; Resp 16; Temp 98; Pulse Ox 98% ; bp 07:45 BP 201 / 99; Pulse 89; Resp 18 S; Pulse Ox 98% on R/A; aa5 08:16 BP 197 / 96; Pulse 94; Resp 15; Pulse Ox 98% ; Pain 6/10; jl7 08:40 BP 187 / 96; rn 09:20 BP 164 / 88; Pulse 87; Resp 15; Pulse Ox 98% ; jl7 09:20 BP 164 / 88; Pulse 85; Resp 20; Pulse Ox 98% ; bp 07:45 MD notified of BP aa5 [place] Coma Score: 08:40 Eye Response: spontaneous(4). Verbal Response: oriented(5). Motor Response: obeys rn commands(6). Total: 15. ED Course: 07:16 Patient arrived in ED. rn 07:16 Kareem Atkinson MD is Attending Physician. rn 07:20 Faustino Garcia, JOSE EDUARDO is Primary Nurse. bp 07:24 Triage completed. bp 07:24 Arm band placed on. bp 07:34 CT Head C Spine In Process Unspecified. EDMS 08:00 Inserted saline lock: 22 gauge in right forearm, using aseptic technique. bp 08:02 Patient has correct armband on for positive identification. Bed in low position. Call bp light in reach. Side rails up X2. 08:29 initiated transfer to [facility]. bd 09:45 No provider procedures requiring assistance completed. Patient transferred, IV remains bp in place. Administered Medications: No medications were administered Medication: 09:45 VIS not applicable for this client. bp Outcome: 07:41 ER care complete, transfer ordered by . rn 10:10 Patient left the ED. bp Signatures: Dispatcher [employer] EDMS Justyna Chavez Roman, MD MD rn Calderon, Audri, RN RN aa5 Marcellus Alvarado RN RN jl7 Faustino Garcia, RN RN bp
--- NOTE | 2022-10-10 07:42 | EDPHYS ---
Physician Documentation [facility] Name: Skylar Grossman Age: 87 yrs Sex: Female : 1935 Arrival Date: 10/10/2022 Time: 07:16 Bed 5 Private MD: ED Physician Kareem Atkinson HPI: 10/10 07:28 This 87 yrs old Female presents to ER via EMS with complaints of Fall Injury. rn 07:28 Details of fall: The patient fell from a height, off furniture, approximately 3 feet. rn Onset: The symptoms/episode began/occurred just prior to arrival. Associated injuries: The patient sustained injury to the head. Severity of symptoms: At their worst the symptoms were mild, in the emergency department the symptoms are unchanged. The patient has not experienced similar symptoms in the past. The patient has not recently seen a physician. Pt and EMS report slid onto ground while trying to get out of bed, hit head on floor, no LOC, no blood thinners, remembers all events. Denies injury other than head/neck. IN a sling from recent pacemaker placement.. Historical: - Allergies: 07:24 Codeine (Upset stomach); bp 07:24 meperidine HCl; bp 07:24 Morphine; bp - PMHx: 07:24 CVA; Dementia; Depression; Diabetes - IDDM; GERD; High Cholesterol; Hypertension; bp Cardiac pacemaker in situ; - PSHx: 07:24 Appendectomy; Cholecystectomy; Total abdominal hysterectomy; bp - Immunization history:: Adult Immunizations up to date. - Social history:: Smoking status: Patient denies any tobacco usage or history of. - Family history:: not pertinent. - Hospitalizations: : No recent hospitalization is reported. ROS: 07:28 Constitutional: Negative for fever, chills, and weight loss, Eyes: Negative for injury, rn pain, redness, and discharge, Neck: + neck pain, no direct injury or swelling Cardiovascular: Negative for chest pain, palpitations, and edema, Respiratory: Negative for shortness of breath, cough, wheezing, and pleuritic chest pain, Abdomen/GI: Negative for abdominal pain, nausea, vomiting, diarrhea, and constipation, Back: Negative for injury and pain, MS/Extremity: Negative for injury and deformity, Skin: Negative for injury, rash, and discoloration, Neuro: + head injury Exam: 07:28 Constitutional: This is a well developed, well nourished patient who is awake, alert, rn and in no acute distress. Head/Face: Normocephalic, small area of coagulated blood and hematoma, difficult to appreciate laceration. No active bleeding. No depression of skull. Eyes: Pupils equal round and reactive to light, extra-ocular motions intact. Neck: No midline cervical tenderness, no swelling. No crepitus. Chest/axilla: Normal chest wall appearance and motion. Nontender with no deformity. No crepitus Cardiovascular: Regular rate and rhythm. No pulse deficits. Respiratory: No increased work of breathing, no retractions or nasal flaring. Abdomen/GI: Soft, non-tender Back: No spinal tenderness Skin: Warm, dry MS/ Extremity: Pulses equal, no cyanosis. Neuro: Awake and alert, GCS 15, oriented to person, place, time, and situation. Cranial nerves II-XII grossly intact. Motor strength 5/5 in all extremities. Sensory grossly intact. Vital Signs: 07:15 BP 182 / 85; Pulse 87; Resp 16; Temp 98; Pulse Ox 98% ; bp 07:45 BP 201 / 99; Pulse 89; Resp 18 S; Pulse Ox 98% on R/A; aa5 08:16 BP 197 / 96; Pulse 94; Resp 15; Pulse Ox 98% ; Pain 6/10; jl7 08:40 BP 187 / 96; rn 09:20 BP 164 / 88; Pulse 87; Resp 15; Pulse Ox 98% ; jl7 09:20 BP 164 / 88; Pulse 85; Resp 20; Pulse Ox 98% ; bp 07:45 MD notified of BP aa5 [place] Coma Score: 08:40 Eye Response: spontaneous(4). Verbal Response: oriented(5). Motor Response: obeys rn commands(6). Total: 15. MDM: 07:16 Patient medically screened. rn 07:39 Differential diagnosis: closed head injury, contusion, fracture, subdural hematoma, rn epidural hematoma, intraparenchymal bleed. Data reviewed: vital signs, nurses notes, radiologic studies, CT scan. 07:40 Counseling: I had a detailed discussion with the patient and/or guardian regarding: the rn historical points, exam findings, and any diagnostic results supporting the discharge/admit diagnosis, radiology results, the need for further work-up and treatment in the hospital, the need to transfer to another facility, for higher level of care, [facility] does not immediately have the required specialist. 07:40 Discussion of test interpretation with radiology: I had a discussion with photo mask pattern generator regarding a test interpretation. Discussed imaging with radiologist, + bleed, no evidence of herniation. 08:43 Consideration of Admission/Observation Escalation of care including promotions intern/observation considered. Management of patient was discussed with the following: Block Placer: Management and transfer discussed with physician at [facility] for transfer, accepted for transfer. . Independent interpretation of the following test(s) in the Emergency Department CT Scan: My interpretation is CT show posterior subdural hematoma/hemorrhage. . Care significantly affected by the following chronic conditions: Diabetes, Hypertension. Response to treatment: the patient's symptoms have mildly improved after treatment, and as a result, I will admit patient. 10/10 07:40 Order name: CBC with Diff rn 10/10 07:40 Order name: Basic Metabolic Panel; Complete Time: 08:38 rn 10/10 07:40 Order name: Protime (+inr); Complete Time: 08:23 rn 10/10 07:40 Order name: Ptt, Activated; Complete Time: 08:23 rn 10/10 07:40 Order name: SARS RAPID; Complete Time: 08:23 rn 10/10 10:06 Order name: CBC Smear Scan EDAZ 10/10 07:16 Order name: CT Head C Spine; Complete Time: 08:23 rn 10/10 07:40 Order name: IV Start; Complete Time: 07:58 rn Administered Medications: No medications were administered Disposition Summary: 10/10/22 07:41 Transfer Ordered Transfer Location: [facility] rn Reason: Higher level of care rn Condition: Stable rn Problem: new rn Symptoms: have improved rn Accepting Physician: (10/10/22 10:10) bp Diagnosis - Unspecified injury of head, initial encounter rn - Traumatic subdural hemorrhage rn - Fall on same level, unspecified rn Forms: - Medication Reconciliation Form rn - SBAR form rn Signatures: Dispatcher [employer] [facility] Kareem Atkinson MD MD rn Peltier, Brian, RN RN bp Corrections: (The following items were deleted from the chart) 07:28 Constitutional: Negative for fever, chills, and weight loss, Eyes: Negative for rn injury, pain, redness, and discharge, Neck: Negative for injury, pain, and swelling, Cardiovascular: Negative for chest pain, palpitations, and edema, Respiratory: Negative for shortness of breath, cough, wheezing, and pleuritic chest pain, Abdomen/GI: Negative for abdominal pain, nausea, vomiting, diarrhea, and constipation, Back: Negative for injury and pain, MS/Extremity: Negative for injury and deformity, Skin: Negative for injury, rash, and discoloration, Neuro: + head injury rn 10:10 07:41 Dr. worthy bp
[2022-10-10 08:10] LABS: Absolute Lymphocytes (CBC) 1.5 K/uL (0.7-4.9); Hematocrit 37.4 % (36.0-45.0); Lymphocytes % 23.8 % (15.3-44.8); MCV 83.9 fL (80-100); MPV 7.6 fL (7.6-11.3); RBC Red Blood Cell Count 4.46 M/uL (3.86-4.86)
--- NOTE | 2022-10-10 08:18 | RAD REPORT ---
EXAM DESCRIPTION: CT - [id number] - 10/10/2022 7:33 am CLINICAL HISTORY: Trauma, head and neck injury. fall head injury COMPARISON: Head C Spine Mpr Wo Con dated 04/06/2020; Head C Spine Mpr Wo Con dated 06/06/2016; CT-SPI [id number] dated 10/20/2015; CT HEAD CSPINE MPR WO CONTRAST dated 05/21/2015 TECHNIQUE: Axial 5 mm thick images of the head were obtained. Axial 2 mm thick images of the cervical spine were obtained with sagittal and coronal reconstruction images generated and reviewed. All CT scans are performed using dose optimization technique as appropriate and may include automated exposure control or mA/KV adjustment according to patient size. FINDINGS: CT HEAD WITHOUT CONTRAST: There is a right posterior subdural hematoma noted maximum depth of 19 mm. There is a mixed character with acute and subacute components seen. Small amount of blood likely present extending along the ri ght anterior falx as well. 5 mm right to left midline shift is seen.There is moderate brain atrophy. The paranasal sinuses and mastoids are clear.Postsurgical changes seen right calvarium. CT CERVICAL SPINE WITHOUT CONTRAST: No fracture or subluxation.There is a very advanced degenerative pattern to the lower cervical spine, greatest at C5-6. 4 mm degenerative anterolisthesis is present C6 on 7. IMPRESSION: Predominately acute subdural hematoma right posterior subdural space with a small amount of blood anterior falx.5 mm right to left midline shift. Advanced lower cervical degenerative changes without acute fracture seen. The findings were discussed with Dr. Atkinson in the ER on 10/10/2022 at 8:10 a.m. by telephone.
[2022-10-10 08:19] LABS: Protime INR 1.01
[2022-10-10 08:22] LABS: SARS-CoV-2 Antigen Rapid Res Negative (Negative)
[2022-10-10 08:35] LABS: Potassium 3.8 mmol/L (3.5-5.1)
[2022-10-10 10:06] LABS: Anisocytosis 1+; Blood Morphology Comment NOTED (NOT SEEN); Platelet Estimate ADEQ; Poikilocytosis 1+; White Blood Cell Scan OK (OK)
[2022-10-10 10:23] VITALS: TEMP 98; O2SAT 98
[2022-10-10 10:35] VITALS: BP 164/88
== END 2022-10-10 10:10 | disposition short-term general hospital (02) ==
LOC: ER 07:12
DX: S06.5X0A Traumatic subdural hemorrhage without loss of consciousness, initial encounter (principal); W18.30XA Fall on same level, unspecified, initial encounter; I10 Essential (primary) hypertension; F03.90 Unspecified dementia, unspecified severity, without behavioral disturbance, psychotic disturbance, mood disturbance, and anxiety; E11.9 Type 2 diabetes mellitus without complications; Z20.822 Contact with and (suspected) exposure to COVID-19; Z95.0 Presence of cardiac pacemaker; Z86.73 Personal history of transient ischemic attack (TIA), and cerebral infarction without residual deficits; Z88.5 Allergy status to narcotic agent; Z88.8 Allergy status to other drugs, medicaments and biological substances
CPT/HCPCS: 36415; 70450; 72125; 80048; 85025; 85610; 85730; 87811; 99284

== ENCOUNTER 2023-01-03 09:42 | Emergency (ER) | payer OTHER ==
--- OUTSIDE RECORDS SUMMARY | 2023-01-03 10:05 | XMS REPORT | Continuity of Care Document ---
:1935 Author Organization [facility] t Address [address] [place] [address] Care Team Providers Name Role Phone No MD, Pcp [facility] Primary Care Physician Unavailable JUAQUIN MCINTYRE Attending Clinician Unavailable HARINI BETANCOURT Attending Clinician Unavailable HARINI BETANCOURT Attending Clinician Unavailable GILBERT WINSTON Attending Clinician Unavailable Inez Hylton MD Attending Clinician INEZ HYLTON Attending Clinician Unavailable Doctor Unassigned, [place] Attending Clinician Unavailable JARVIS MILLIGAN Attending Clinician Unavailable Liza Zarco Attending Clinician Raul Rosen MD Attending Clinician Jarvis Milligan MD Attending Clinician CASSIUS PINK Attending Clinician Unavailable DAYAMI LOVE Attending Clinician Unavailable Dayami Whitman Attending Clinician [phone] Pob, [facility] Main Attending Clinician Unavailable Colleen WHITT, Jamil Reeder Attending Clinician Unavailable ACACIA DEL TORO Attending Clinician Unavailable Srinath Cohen DO Attending Clinician Acacia Del Toro MD Attending Clinician Ca Meléndez MD Attending Clinician Therapy, [facility] Covid Attending Clinician Unavailable Unknown, Attending Attending Clinician Unavailable UNKNOWN, ATTENDING Attending Clinician Unavailable Paco Tariq RN Attending Clinician Unavailable Only, Kevin Db Test Attending Clinician Unavailable Pavan FIERROP, Jud Attending Clinician JUD CHUA Attending Clinician Unavailable JUAQUIN MCINTYRE Admitting Clinician Unavailable INEZ HYLTON Admitting Clinician Unavailable JARVIS MILLIGAN Admitting Clinician Unavailable Chel GABRIEL, Jarvis Admitting Clinician STACEY OLVIAS Admitting Clinician Unavailable HARINI BETANCOURT Admitting Clinician Unavailable ACACIA DEL TORO Admitting Clinician Unavailable Alverto GABRIEL, Acacia Landaverde Admitting Clinician LUIS E DOMINGUEZ Admitting Clinician Unavailable Payers Payer Name Policy Type Policy Number Effective Date Expiration Date S dianelys MEDICARE PART A AND [id number] 1998 B 00:00:00 MEDICARE A B [id number] 1998 00:00:00 [facility] [id number] 2019 HEALTHCARE 00:00:00 MEDICARE PART A \\T\\ [id number] 1998 B 00:00:00 Problems Condition Condition Condition Status Onset Resolution Last Treating Co mments Source Name Details Category Date Date Treatment Clinician Date Hyponatrem Hyponatrem Disease Recurre Univers ia ia nce 2-14 ity of 00:00: [address] Branch 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 2-14 it y of 00:00: [place] [address] Medical Branch At high At high Disease Active Univers risk for risk for 2-14 ity of seizures seizures 00:00: [place] [address] Medical Branch SUBDURAL SUBDURAL Diagnosis Active 2022-10-10 Memoria RADHA RADHA 10-10 12:36:00 l Active 00:00: Austyn 10/10/2022 00 [facility] TS Diagnosis Active 2022-10-11 Mem oria Active 10-10 12:26:00 l 10/10/2022 00:00: Jax sosa [address] Sick sinus Sick sinus Disease Active U nivers syndrome syndrome 10-07 ity of 00:00: Medical Branch Symptomati Symptomati Disease Active U nivers c c 10-06 ity of bradycardi bradycardi [place] 00 Medical [place] Sinus Sinus Disease Active Overview: Univer s pause pause 09-13 Formattin ity of 00:00: g of this note Medical might be Branch different from the original. Added automatic ally from request for surgery [id number] Syncope Syncope Disease Active Overview: Univ ers and and 09-13 Formattin ity of collapse collapse 00:00: g of this [place] as 00 note Medical might be Branch different from the original. 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 Added automatic ally from request for surgery [id number] Acute Acute Disease Active [facility] encephalop 7-16 [facility] athy athy 00:00: [facility] Center Vasovagal Vasovagal Disease Active [facility] Colitis Colitis Disease [facility] Syncope Syncope Disease Active [facility]: Medical 00 [place] SDH SDH Diagnosis Active 2018-02-26 Mem oria Active 02-18 12:06:00 l 02/18/2018 00:00: Jax sosa [address] FALL/ FALL/ Diagnosis Active 2018-02-19 Mem oria INTRAVENTR INTRAVENTR 6- 04:32:00 l ICULAR ICULAR 00:00: [place] HEMORRHAGE HEMORRHAGE 00 VS SDH VS SDH Active 02/18/2018 [facility] ACUTE SDH ACUTE SDH Diagnosis Active 2018-02-16 Memoria Active 02-05 22:05:00 l 02/05/2018 00:00: Jax sosa [address] Pain in Pain in Disease Active Overview: Univ ers limb limb 12-04 Formattin ity of 00:00: g of this [place] 00 note Medical might be Branch different [...] of and and 00:00: g of this [place] radiculiti radiculiti 00 note Me dical s, s, might be Branch unspecifie unspecifie different d d from the original. Cervical radiculop athy Osteoarthr Osteoarthr Disease Active Overview : Univers itis itis 12-04 Formattin ity of 00:00: g of this [place] 00 note Medical might be Branch different from the original. ICD10 Diagnosis Term Contract Lead Utility Esophageal Esophageal Disease Active 2005-09 U nivers reflux reflux 1-15 ity of 00:00: [place] 00 Medical Branch Diabetic Diabetic Disease Active 2005-09 Overview: Un teo polyneurop polyneurop 1-15 Formattin ity of athy athy 00:00: g of this [place] 00 note Medical might be Branch different from the original. ICD10 Diagnosis Term Contract Lead Utility Chronic Chronic Disease Active 2005-09 Univers depressive depressive 1-15 it y of personalit personalit 00:00: [place] y disorder y disorder 00 Me dical Branch HLD HLD Disease Active 2005-09 Overview: Univer s (hyperlipi (hyperlipi 1-15 Formattin ity of demia) demia) 00:00: g of this [place] 00 note Medical might be Branch different from the original. 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 ICD10 Diagnosis Term Contract Lead Utility Hypertensi Hypertens Problem Resolve 2018-10-22 Memoria ve sudeep d 15:27:05 l disorder, disorder, Herm roxanne systemic systemic arterial arterial (disorder) (disorder) Resolved Problem 10/22/2018 [facility] NONTRAUMAT NONTRAUMA Diagnosis Active 2018-02-[address] [facility] IC ACUTE TIC ACUTE 22:05:00 l SUBDURAL SUBDURAL Jax n HEMORRHAGE HEMORRHAGE Active [facility] NONTRAUMAT NONTRAUMA Diagnosis Active 2018-02-26 Memoria IC CHRONIC TIC 12:06:00 l SUBDURAL CHRONIC Effie HEMORRHAGE SUBDURAL HEMORRHAGE Active [facility] FALL FALL Diagnosis Active 2018-02-19 Mem oria Active 03:11:00 l [facility] TRAUM TRAUM Diagnosis Active 2022-10-11 [facility] oria SUBDR HEM SUBDR HEM 12:26:00 l WITH LOC WITH LOC Jax n STATUS STATUS UNKNOWN, UNKNOWN, Active [facility] Allergies, Adverse Reactions, Alerts Allergy Allergy Status Severity Reaction(s) Onset Inactive Treating Comm ents Source Name Type Date Date Clinician Codeine Propensi Active 2020-[address] ty [...] NE HCL INGREDI 3-10 ity of 00:00: [place] [address] Medical Branch Meperidi Propensi Active Unknown - REACTIONS Univers ne Hcl ty to See comments 3-10 UNKNOWN ity of adverse 00:00: [place] reaction 00 Medical s Branch CODEINE DRUG Active High Anaphylaxis 2006- Univ ers INGREDI 0-04 ity of 00:00: [place] 00 Medical Branch Codeine Propensi Active Anaphylaxis 2005- Un teo ty to 0-04 ity of adverse 00:00: [place] reaction 00 Medical s to Branch drug NO KNOWN Allergy Active [facility] ALLERGIE S codeine codeine Active Memoria l Effie Demerol Demerol Active Memoria HCl HCl l Effie Family History Family Member Diagnosis Comments Start Date Stop Date Source Natural father High blood pressure C HI [facility] Social History Social Habit Start Date Stop Date Quantity Comments Source History SDOH Social Unive rsity of Connections [facility] Med ical Together Branch History SDOH Social Unive rsity of Connections [facility] Medical Branch History SDOH Social Unive rsity of Connections [place] [facility] Membership Branch History SDOH Social Unive rsity of Connections [place] [facility] Meetings Branch History SDOH [facility] Alcohol Binge Medical Nataliia ter History SDOH [facility] Alcohol Std Drinks Medica l Center History SDOH [facility] Alcohol Comment Medical C enter Exposure to 2022-11-13 2022-11-23 Not sure University of SARS-CoV-2 (event) 00:00:00 12:54:00 [place] [facility] Branch History SDOH 2022-10-25 2022-10-25 2 University o f Transport Med 00:00:00 00:00:00 [place] Medic al Branch History SDOH 2022-10-25 2022-10-25 2 University o f Transport Non-Med 00:00:00 00:00:00 [place] M edical Branch History SDOH Social 2022-10-25 2022-10-25 4 Unive rsity of Connections Phone 00:00:00 00:00:00 [place] M edical Branch History SDOH Social 2022-10-25 2022-10-25 4 Unive rsity of Connections Living 00:00:00 00:00:00 [place] [facility] History SDOH 2022-10-25 2022-10-25 0 University o f Physical Activity 00:00:00 00:00:00 [place] M edical DPW Branch History SDOH 2022-10-25 2022-10-25 0 University o f Physical Activity 00:00:00 00:00:00 [place] M edical MPS Branch History SDOH 2022-10-25 2022-10-25 5 University o f Financial 00:00:00 00:00:00 [place] [facility] History SDOH Food 2022-10-25 2022-10-25 1 Univers ity of Worry 00:00:00 00:00:00 [place] [facility] Branch History SDOH Food 2022-10-25 2022-10-25 1 Univers ity of Scarcity 00:00:00 00:00:00 [place] Medical [place] Tobacco use and 2022-08-03 2022-08-03 Smokeless Universit y of exposure 00:00:00 00:00:00 tobacco non-user [place] Me dical Branch History SDOH 2020-03-27 2020-03-[address] [facility] Alcohol Frequency 00:00:00 00:00:00 [facility] Alcohol intake 2020-03-26 2020-03-[address] [facility] es 00:00:00 00:00:00 non-drinker of Medical Ce nter alcohol (finding) Social History 2018-02-19 2018-02-19 [facility] 11:13:34 11:13:34 Sex Assigned At [address] [facility] kes 00:00:00 00:00:00 [facility] Smoking Status Start Date Stop Date Source Never smoked tobacco [facility] [place] Medications Ordered Filled Start Stop Current Ordering Indication Dosage Frequency Signature Comments Components Source Medication Medication Date Date Medication? Clinician (SIG) Name Name amLODIPine 2022- Yes 5mg Take 5 mg [place] 5 mg tablet 2-21 by mouth ity of 17:33: at [place] [address] bedtime. Medical Branch aspirin 81 3-0 Yes 81mg Take 81 mg U nivers mg EC 2-21 by mouth ity of tablet 17:33: in the [place] [address] morning. Medical Branch lisinopriL 2022-0 Yes 20mg Take 20 mg U nivers 20 mg 2-21 by mouth ity of tablet 17:33: in the [place] [address] morning Medical and 20 mg Branch in the evening. metFORMIN 3-0 Yes 500mg Take 500 Uni vers 500 mg 2-21 mg by ity of tablet 17:33: mouth in [place] [address] the Medical morning Branch and 500 mg in the evening. Take with meals. pantoprazol 3-0 Yes 40mg Take 40 mg Univers e 2-21 by mouth ity of (PROTONIX) 17:33: in the [place] 20 mg EC 53 morning. Medical tablet Branch tamsulosin 2022-0 Yes Take by [facility] ers (FLOMAX) 2-21 mouth ity of 0.4 mg 24 17:33: daily. [place] hr capsule 53 Medical Branch FLUoxetine 2022-0 Yes 20mg Take 20 mg U nivers 20 mg 2-21 by mouth ity of capsule 17:33: in the [place] [address] morning. Medical Branch gabapentin 2022-0 Yes 300mg Take 300 Un teo 300 mg 2-21 mg by ity of capsule 17:33: mouth 2 [place] 53 (two) Medical times Branch daily as needed. memantine 2022-0 Yes 10mg Take 10 mg Un teo 10 mg 2-21 by mouth ity of tablet 17:33: in the [place] [address] morning Medical and 10 mg Branch in the evening. simvastatin 2022-0 Yes 20mg Take 20 mg Univers 20 mg 2-21 by mouth ity of tablet 17:33: at [place] [address] bedtime. Medical Branch amLODIPine 2022-0 Yes 5mg Take 5 mg Un teo 5 mg tablet 2-21 by mouth ity of 17:33: at [place] [address] bedtime. Medical Branch aspirin 81 2022-0 Yes 81mg Take 81 mg U nivers mg EC 2-21 by mouth ity of tablet 17:33: in the [place] [address] morning. Medical Branch lisinopriL 2022-0 Yes 20mg Take 20 mg U nivers 20 mg 2-21 by mouth ity of tablet 17:33: in the [place] [address] morning Medical and 20 mg Branch in the evening. metFORMIN 2022-0 Yes 500mg Take 500 Uni vers 500 mg 2-21 mg by ity of tablet 17:33: mouth in [place] 53 the Medical morning Branch and 500 mg in the evening. Take with meals. pantoprazol 3-0 Yes 40mg Take 40 mg Univers e 2-21 by mouth ity of (PROTONIX) 17:33: in the [place] 20 mg EC 53 morning. Medical tablet Branch tamsulosin 2022-0 Yes Take by [facility] ers (FLOMAX) 2-21 mouth ity of 0.4 mg 24 17:33: daily. [place] hr capsule 53 Medical Branch FLUoxetine 2022-0 Yes 20mg Take 20 mg U nivers 20 mg 2-21 by mouth ity of capsule 17:33: in the [place] [address] morning. Medical Branch gabapentin 3-0 Yes 300mg Take 300 Un teo 300 mg 2-21 mg by ity of capsule 17:33: mouth 2 [place] [address] (two) Medical times Branch daily as needed. memantine 2023-0 Yes 10mg Take 10 mg Un teo 10 mg 2-21 by mouth ity of tablet 17:33: in the [place] [address] morning Medical and 10 mg Branch in the evening. simvastatin 2023-0 Yes 20mg Take 20 mg Univers 20 mg 2-21 by mouth ity of tablet 17:33: at [place] [address] bedtime. Medical Branch amLODIPine 3-0 Yes 5mg Take 5 mg Un teo 5 mg tablet 2-21 by mouth ity of 17:33: at [place] [address] bedtime. Medical Branch aspirin 81 2022-0 Yes 81mg Take 81 mg U nivers mg EC 2-21 by mouth ity of tablet 17:33: in the [place] [address] morning. Medical Branch lisinopriL 2022-0 Yes 20mg Take 20 mg U nivers 20 mg 2-21 by mouth ity of tablet 17:33: in the [place] [address] morning Medical and 20 mg Branch in the evening. metFORMIN 3-0 Yes 500mg Take 500 Uni vers 500 mg 2-21 mg by ity of tablet 17:33: mouth in [place] [address] the Medical morning Branch and 500 mg in the evening. Take with meals. pantoprazol 3-0 Yes 40mg Take 40 mg Univers e 2-21 by mouth ity of (PROTONIX) 17:33: in the [place] 20 mg EC morning. Medical tablet Branch tamsulosin 2022-0 Yes Take by [facility] ers (FLOMAX) 2-21 mouth ity of 0.4 mg 24 17:33: daily. [place] hr capsule 53 Medical Branch FLUoxetine 3-0 Yes 20mg Take 20 mg U nivers 20 mg 2-21 by mouth ity of capsule 17:33: in the [place] [address] morning. Medical Branch gabapentin 3-0 Yes 300mg Take 300 Un teo 300 mg 2-21 mg by ity of capsule 17:33: mouth 2 [place] [address] (two) Medical times Branch daily as needed. memantine 3-0 Yes 10mg Take 10 mg Un teo 10 mg 2-21 by mouth ity of tablet 17:33: in the [place] [address] morning Medical and 10 mg Branch in the evening. simvastatin 2022-0 Yes 20mg Take 20 mg Univers 20 mg 2-21 by mouth ity of tablet 17:33: at [place] [address] bedtime. Medical Branch amLODIPine 2022-0 Yes 5mg Take 5 mg Un teo 5 mg tablet 2-21 by mouth ity of 17:33: at [place] [address] bedtime. Medical Branch aspirin 81 2022-0 Yes 81mg Take 81 mg U nivers mg EC 2-21 by mouth ity of tablet 17:33: in the [place] [address] morning. Medical Branch lisinopriL 2022-0 Yes 20mg Take 20 mg U nivers 20 mg 2-21 by mouth ity of tablet 17:33: in the [place] [address] morning Medical and 20 mg Branch in the evening. metFORMIN 2022-0 Yes 500mg Take 500 Uni vers 500 mg 2-21 mg by ity of tablet 17:33: mouth in [place] [address] the Medical morning Branch and 500 mg in the evening. Take with meals. pantoprazol 2022-0 Yes 40mg Take 40 mg Univers e 2-21 by mouth ity of (PROTONIX) 17:33: in the [place] 20 mg EC morning. Medical tablet Branch tamsulosin 0 Yes Take by [facility] ers (FLOMAX) 2-21 mouth ity of 0.4 mg 24 17:33: daily. [place] hr capsule 53 Medical Branch FLUoxetine 2022-0 Yes 20mg Take 20 mg U nivers 20 mg 2-21 by mouth ity of capsule 17:33: in the [place] [address] morning. Medical Branch gabapentin 2022-0 Yes 300mg Take 300 Un teo 300 mg 2-21 mg by ity of capsule 17:33: mouth 2 [place] 53 (two) Medical times Branch daily as needed. memantine 2022-0 Yes 10mg Take 10 mg Un teo 10 mg 2-21 by mouth ity of tablet 17:33: in the [place] [address] morning Medical and 10 mg Branch in the evening. simvastatin 2022-0 Yes 20mg Take 20 mg Univers 20 mg 2-21 by mouth ity of tablet 17:33: at [place] [address] bedtime. Medical Branch levETIRAcet 2022-0 3- No 250mg Take 250 Univers am (KEPPRA) 2-21 02-21 mg by ity of 250 mg 13:41: 00:00 mouth in [place] tablet 41 :00 the [facility] and 250 mg in the evening. levETIRAcet 2022- Yes [id number] 500mg Take 1 Univers am 500 mg 11-01 tablet by ity of tablet 00:00: 04:59 mouth in [place] 00 :00 the [facility] and 1 tablet in the evening. Do all this for 90 days. levETIRAcet 2022- Yes [id number] 500mg Take 1 Univers am 500 mg 11-01 tablet by ity of tablet 00:00: 04:59 mouth in [place] 00 :00 the [facility] and 1 tablet in the evening. Do all this for 90 days. levETIRAcet 2022- Yes [id number] 500mg Take 1 Univers am 500 mg 11-01 tablet by ity of tablet 00:00: 04:59 mouth in [place] 00 :00 the [facility] and 1 tablet in the evening. Do all this for 90 days. levETIRAcet 2022- Yes [id number] 500mg Take 1 Univers am 500 mg 11-01 tablet by ity of tablet 00:00: 04:59 mouth in [place] 00 :00 the [facility] and 1 tablet in the evening. Do all this for 90 days. levETIRAcet Yes 500mg 500 mg, Un teo am (KEPPRA) 2-20 Oral, BID, it y of tablet 500 02:00: First dose [place] mg 00 on [facility] 10/30/22 at Branch 1999, Until Discontinu ed, Routine morpHINE ( Yes 2mg 2 mg, Slow Univers mg/mL) 2-17 IV Push, ity of injection 2 02:52: Q4HPRN, [place] mg 02 Starting Medical on [facility] Branch 10/27/22 at 2051, Until Discontinu ed, Routine, Pain (scale 7-10) heparin Yes 5000U 5,000 Univers (porcine) 2-16 Units, ity of injection 20:00: Subcutaneo [place] 5,000 Units 00 us, Q8H, Medi joyce First dose Branch on [facility] 10/27/22 at 1400, Until Discontinu ed, Routine metoprolol Yes 25mg 25 mg, Unive rs tartrate 2-16 Oral, BID, ity o f (LOPRESSOR) 02:00: First dose [place] tablet 25 00 on Mon mg 10/26/22 at Branch 2000, Until Discontinu ed, Routine metoprolol 2022- Yes [id number] 25mg Take 1 Univers tartrate 25 2-16 -19 tablet by it y of mg tablet 00:00: 04:59 mouth in [place] 00 :00 the [facility] and 1 tablet in the evening. Do all this for 30 days. metoprolol 2022-2022- Yes [id number] 25mg Take 1 Univers tartrate 25 2-16 -19 tablet by it y of mg tablet 00:00: 04:59 mouth in [place] 00 :00 the [facility] morning Branch and 1 tablet in the evening. Do all this for 30 days. metoprolol 2022- Yes [id number] 25mg Take 1 Univers tartrate 25 2-16 -19 tablet by it y of mg tablet 00:00: 04:59 mouth in [place] 00 :00 the [facility] and 1 tablet in the evening. Do all this for 30 days. KCL 2022- No 40meq 40 mEq, Univers (KLOR-CON 10-26 Oral, ity of M20) tablet 05:45: 05:18 ONCE, 1 [place] 40 mEq 00 :00 dose, On [facility] 10/25/22 at 2345, Routine magnesium 2022- No 2g 2 g, IV Univ ers sulfate in 10-26 Piggyback, it y of water 2 05:45: 06:20 Administer [place] gram/50 mL 00 :00 over 60 Medica l (4 %) Minutes, Branch infusion 2 ONCE, 1 g dose, On Mon10/25/22 at 2345, Routine simvastatin 2022-0 Yes 20mg 20 mg, Univ ers (ZOCOR) 2-15 Oral, QHS, ity of tablet 20 03:00: First dose [place] mg 00 on Mon [facility] 10/25/22 at Branch 2100, Until Discontinu ed, Routine amLODIPine 2022-0 Yes 5mg 5 mg, Univer s (NORVASC) 2-15 Oral, QHS, ity of tablet 5 mg 03:00: First dose [place] 00 on [facility] 10/25/22 at Branch 2100, Until Discontinu ed, Routine phytonadion 2022-0 2022- No 10mg IV Unive rs e (VITAMIN 210-25 Piggyback, it y of K) 10 mg in 16:45: 18:08 ONCE, 1 [place] NaCl 0.9% 00 :00 dose, On Medica l (NS) [facility] piggyback 10/25/22 at 1045, 50 mL NaCl 0.9% 2022-0 Yes 1000mL at 75 Unive rs (NS) IV 2-14 mL/hr, IV ity of infusion 16:00: Infusion, [place] 1,000 mL 00 CONTINUOUS Medic al , Starting Branch on Mon10/25/22 at 1000, Until Discontinu ed, Routine NaCl 0.9% 2022-0 Yes 10mL 10 mL, Univer s (NS) 2-14 Slow IV ity of injection 15:49: Push, PRN, [place] 10 mL 01 Starting Medical on [facility] 10/25/22 at 0949, Until Discontinu ed, Routine, line maintenanc e lidocaine 0 Yes 5mL 5 mL, Univers 1% (PF) 14 Subcutaneo ity of (XYLOCAINE) 15:49: us, PRN, [place] injection 5 01 Starting Medi joyce mL on [facility] 10/25/22 at 0949, Until Discontinu ed, Routine, Local anesthesia tamsulosin 0 Yes .4mg 0.4 mg, Univ ers (FLOMAX) 2-14 Oral, ity of capsule 0.4 15:00: DAILY, [place] mg 00 First dose Medical on [facility] 10/25/22 at 0900, Until Discontinu ed, Routine pantoprazol 2022-0 Yes 40mg 40 mg, Univ ers e 2-14 Oral, ity of (PROTONIX) 15:00: DAILY, [place] EC tablet 00 First dose Medi joyce 40 mg on [facility] 10/25/22 at 0900, Until Discontinu ed, Routine FLUoxetine 2022-0 Yes 20mg 20 mg, Unive rs (PROZAC) 2-14 Oral, ity of capsule 20 15:00: DAILY, [place] mg 00 First dose Medical on [facility] 10/25/22 at 0900, Until Discontinu ed, Routine metFORMIN Yes 500mg 500 mg, Univ ers (GLUCOPHAGE 2-14 Oral, BID ity of ) tablet 14:00: MEALS, [place] 500 mg 00 First dose Medical on [facility] 10/25/22 at 0800, Until Discontinu ed, Routine memantine Yes 10mg 10 mg, Univer s (NAMENDA) 2-14 Oral, BID, ity of tablet 10 14:00: First dose [place] mg 00 on [facility] 10/25/22 at Branch 0800, Until Discontinu ed, Routine
membership counselor approving Restricted medication : JARVIS MILLIGAN lisinopriL Yes 20mg 20 mg, Unive rs (PRINIVIL,Z 2-14 Oral, BID, it y of ESTRIL) 14:00: First dose [place] tablet 20 00 on [facility] mg 10/25/22 at Branch 0800, Until Discontinu ed, Routine gabapentin Yes 200mg 200 mg, Uni vers (NEURONTIN) 2-14 Oral, TID, it y of capsule 200 14:00: First dose [place] mg 00 on [facility] 10/25/22 at Branch 0800, Until Discontinu ed, Routine levETIRAcet 2022- No 500mg 500 mg, IV Univers am (KEPPRA) 10-2520 Piggyback, i ty of in NACL 14:00: 01:39 Q12H, [place] (ISO-OS) 00 :32 First dose Medic al 500 mg/100 on [facility] mL RTU 10/25/22 at 0800, Until Discontinu ed, Administer over 15 Minutes, 100 mL carvediloL 2022- No 6.25mg 6.25 mg, Univers (COREG) 10-2515 Oral, BID ity of tablet 6.25 14:00: 21:58 MEALS, [place] mg 00 :13 First dose Medical on [facility] 10/25/22 at 0800, Until Discontinu ed, Routine Sliding Yes Subcutaneo Univ ers Scale 2-14 us, AC+HS, ity of Insulin-Reg 13:30: First dose [place] ular + Fsbg 00 on Medica l Testing 10/25/22 at Branch 0730, Until Discontinu ed, Routine iopamidol 0 2022- No [id number] 80mL 80 mL, U nivers (ISOVUE 2-14 02-14 Intravenou ity o f 370-500 mL) 10:15: 10:30 s, ONCE, 1 [place] injection 00 :00 dose, On Medica l 80 mL [facility] 10/25/22 at 0430, Routine sodium 0 Yes 1g 1 g, Oral, Unive rs chloride 2-14 TID MEALS, ity o f tablet 1 g 10:00: First dose [place] 00 (after Medical last Branch modificati on) on Mon10/25/22 at 0400, Until Discontinu ed, Routine niCARdipine 0 Yes 2.5mg/h 2.5-15 U nivers (CARDENE 2-14 mg/hr ity of I.V.) 40 mg 08:01: (12.5-75 [place] in NaCL 200 04 mL/hr), IV Me dical mL (RTU) Infusion, Branch infusion TITRATE, SBP Goal < 180 mmHg, Starting on Mon10/25/22 at 0201
In itiate infusion at 2.5 mg/hr.&nbs p; Ti trate by 2.5 mg/hr every 5 minutes to 15 minutes as needed to achieve and maintain goal blood pressure. Maximum dose = 15 mg/hr. If goal not maintained at maximum allowed dose, contact prescriber .
LORazepam Yes 2mg 2 mg, Slow Un teo (ATIVAN) 2-14 IV Push, ity of injection 2 07:36: TIDPRN, [place] mg 08 Starting Medical on Mon10/25/22 at 0136, Until Discontinu ed, Routine, Agitation, Sedation polyethylen 0 Yes 17g 17 g, Unive rs e glycol 2-14 Oral, ity of 3350 powder 07:18: QDAILYPRN, [place] 17 g 09 Starting Medical on Mon10/25/22 at 0118, Until Discontinu ed, Routine, Constipati on dextrose 2023-0 Yes 250mL 250 mL, IV Un teo 10% (D10W) 2-14 Infusion, ity of bolus 07:07: PRN - SEE [place] infusion 04 INSTRUCTIO Medic al 250 mL NS, Branch Administer over 60 Minutes, Other, If blood glucose is < or = 70 mg/dL and patient is unable to swallow or has mental status changes, Starting on Mon10/25/22 at 0107
If blood glucose is < or = [...]
glucagon Yes 1mg 1 mg, Univers (GLUCAGEN 2-14 Intramuscu ity of DIAGNOSTIC 07:07: [place], PRN, [place] KIT) 00 Starting Medical injection 1 on Mon [facility] 10/25/22 at 0107, Until Discontinu ed, YOKO, Blood Glucose < or = 70 mg/dL and patient is NPO, unable to swallow or has mental changes. hydralAZINE 0 Yes 10mg 10 mg, Univ ers (APRESOLINE 2-14 Slow IV ity o f ) injection 07:01: Push, [place] 10 mg 01 Q2HPRN, Medical Starting Branch on Mon10/25/22 at 0101, Until Discontinu ed, YOKO, DBP=>100; SBP=>160 labetaloL 0 Yes 20mg 20 mg, Univer s (NORMODYNE) 2-14 Slow IV ity o f injection 07:00: Push, [place] 20 mg 59 Q15MIN Medical PRN, Branch Starting on Mon10/25/22 at 0100, Until Discontinu ed, Routine, Hyertensio n: BP parameters SBP > 160, HOLD for HR < 70 ondansetron 0 Yes 4mg 4 mg, Slow Univers (ZOFRAN 2-14 IV Push, ity of (PF)) 06:56: Q6HPRN, [place] injection 4 23 Starting Medi joyce mg on [facility] 10/25/22 at 0056, Until Discontinu ed, Routine, Nausea and Vomiting (N/V) acetaminoph 2022-0 Yes 650mg 650 mg, Un teo en 10-25 Oral, ity of (TYLENOL) 06:55: Q6HPRN, [place] tablet 650 49 Starting Medic al mg on [facility] 10/25/22 at 0055, Until Discontinu ed, Routine, Pain (scale 1-3) cefTRIAXone 2022-0 2023- No 1000mg 1,000 mg, Univers (ROCEPHIN) 10-25 IV ity of 1,000 mg in 01:00: 01:42 [place], [place] NaCl 0.9% 00 :00 ONCE, 1 Medical (NS) 50 mL dose, On Bran h MINI-BAG [facility] 10/24/22 at 1900, Administer over 30 Minutes, 50 mL
Reas on for Anti-Infec tive: Documented Infection< br>Documen timur Infection Site: Urine<br&g t;Duration of Therapy: Other (see Comments) LORazepam 2022-0 2022- No 1mg 1 mg, Slow U nivers (ATIVAN) 10-25 IV Push, ity of injection 1 01:00: 01:09 ONCE, 1 [place] mg 00 :00 dose, On [facility] 10/24/22 at 1900, STAT amLODIPine 2022-0 Yes 5mg Take 5 mg Un teo 5 mg tablet 10-08 by mouth ity of 13:19: at [place] [address] bedtime. Medical Branch aspirin 81 2022-0 Yes 81mg Take 81 mg U nivers mg EC 10-08 by mouth ity of tablet 13:19: in the [place] [address] morning. Medical Branch lisinopriL 2022-0 Yes 20mg Take 20 mg U nivers 20 mg 10-08 by mouth ity of tablet 13:19: in the [place] [address] morning Medical and 20 mg Branch in the evening. metFORMIN 2022-0 Yes 500mg Take 500 Uni vers 500 mg 1-28 mg by ity of tablet 13:19: mouth in [place] [address] the Medical morning Branch and 500 mg in the evening. Take with meals. pantoprazol 2023-0 Yes 40mg Take 40 mg Univers e 10-08 by mouth ity of (PROTONIX) 13:19: in the [place] 20 mg EC morning. Medical tablet Branch tamsulosin 2022-0 Yes Take by [facility] ers (FLOMAX) 10-08 mouth ity of 0.4 mg 24 13:19: daily. [place] hr capsule 28 Medical Branch FLUoxetine 3-0 Yes 20mg Take 20 mg U nivers 20 mg 10-08 by mouth ity of capsule 13:19: in the [place] [address] morning. Medical Branch gabapentin 2022-0 Yes 300mg Take 300 Un teo 300 mg 10-08 mg by ity of capsule 13:19: mouth 2 [place] [address] (two) Medical times Branch daily as needed. levETIRAcet 2022-0 Yes 250mg Take 250 U nivers am (KEPPRA) 10-08 mg by ity of 250 mg 13:19: mouth in [place] tablet 28 the Medical morning Branch and 250 mg in the evening. memantine 2022-0 Yes 10mg Take 10 mg Un teo 10 mg 10-08 by mouth ity of tablet 13:19: in the [place] [address] morning Medical and 10 mg Branch in the evening. simvastatin 2022-0 Yes 20mg Take 20 mg Univers 20 mg 10-08 by mouth ity of tablet 13:19: at [place] [address] bedtime. Medical Branch amLODIPine 2022-0 Yes 5mg Take 5 mg Un teo 5 mg tablet 10-08 by mouth ity of 13:19: at [place] [address] bedtime. Medical Branch aspirin 81 3-0 Yes 81mg Take 81 mg U nivers mg EC 10-08 by mouth ity of tablet 13:19: in the [place] [address] morning. Medical Branch lisinopriL 3-0 Yes 20mg Take 20 mg U nivers 20 mg 10-08 by mouth ity of tablet 13:19: in the [place] [address] morning Medical and 20 mg Branch in the evening. metFORMIN 3-0 Yes 500mg Take 500 Uni vers 500 mg - mg by ity of tablet 13:19: mouth in [place] [address] the Medical morning Branch and 500 mg in the evening. Take with meals. pantoprazol 3-0 Yes 40mg Take 40 mg Univers e 10-08 by mouth ity of (PROTONIX) 13:19: in the [place] 20 mg EC 28 morning. Medical tablet Branch tamsulosin 2022-0 Yes Take by [facility] ers (FLOMAX) 10-08 mouth ity of 0.4 mg 24 13:19: daily. [place] hr capsule 28 Medical Branch FLUoxetine 2022-0 Yes 20mg Take 20 mg U nivers 20 mg 10-08 by mouth ity of capsule 13:19: in the [place] [address] morning. Medical Branch gabapentin 2022-0 Yes 300mg Take 300 Un teo 300 mg - mg by ity of capsule 13:19: mouth 2 (two) Medical times Branch daily as needed. levETIRAcet 2022-0 Yes 250mg Take 250 U nivers am (KEPPRA) 10-08 mg by ity of 250 mg 13:19: mouth in [place] tablet 28 the Medical morning Branch and 250 mg in the evening. memantine 2022-0 Yes 10mg Take 10 mg Un teo 10 mg 10-08 by mouth ity of tablet 13:19: in the [place] [address] morning Medical and 10 mg Branch in the evening. simvastatin 2022-0 Yes 20mg Take 20 mg Univers 20 mg 10-08 by mouth ity of tablet 13:19: at [place] [address] bedtime. Medical Branch amLODIPine 2022-0 Yes 5mg Take 5 mg Un teo 5 mg tablet 10-08 by mouth ity of 13:19: at [place] [address] bedtime. Medical Branch aspirin 81 2022-0 Yes 81mg Take 81 mg U nivers mg EC 10-08 by mouth ity of tablet 13:19: in the [place] [address] morning. Medical Branch lisinopriL 2022-0 Yes 20mg Take 20 mg U nivers 20 mg 10-08 by mouth ity of tablet 13:19: in the [place] [address] morning Medical and 20 mg Branch in the evening. metFORMIN 2022-0 Yes 500mg Take 500 Uni vers 500 mg - mg by ity of tablet 13:19: mouth in [place] [address] the Medical morning Branch and 500 mg in the evening. Take with meals. pantoprazol 2022-0 Yes 40mg Take 40 mg Univers e 10-08 by mouth ity of (PROTONIX) 13:19: in the [place] 20 mg EC 28 morning. Medical tablet Branch tamsulosin 2022-0 Yes Take by [facility] ers (FLOMAX) 10-08 mouth ity of 0.4 mg 24 13:19: daily. [place] hr capsule 28 Medical Branch FLUoxetine 2022-0 Yes 20mg Take 20 mg U nivers 20 mg 10-08 by mouth ity of capsule 13:19: in the [place] morning. Medical Branch gabapentin 0 Yes 300mg Take 300 Un teo 300 mg - mg by ity of capsule 13:19: mouth 2 [place] 28 (two) Medical times Branch daily as needed. levETIRAcet 2022-0 Yes 250mg Take 250 U nivers am (KEPPRA) - mg by ity of 250 mg 13:19: mouth in [place] tablet 28 the Medical morning Branch and 250 mg in the evening. memantine 0 Yes 10mg Take 10 mg Un teo 10 mg 10-08 by mouth ity of tablet 13:19: in the [place] morning Medical and 10 mg Branch in the evening. simvastatin Yes 20mg Take 20 mg Univers 20 mg 10-08 by mouth ity of tablet 13:19: at [place] [address] bedtime. Medical Branch Sliding Yes Subcutaneo Univ ers Scale 10-08 , TID ity of Insulin - 03:45: MEALS+HS, [place] Lispro 00 First dose Medical (HumaLOG) + (after Branch Fsbg last Testing modificati on) on Mon10/07/22 at 2145, Until Discontinu ed, Routine melatonin Yes 3mg 3 mg, Univers (MELATIN) 10-08 Oral, QHS, ity of tablet 3 mg 03:45: First dose [place] 00 on Mon Medical 10/07/22 at Branch 2145, Until Discontinu ed, Routine Sliding 2022- No Subcutaneo Uni vers Scale 10-08 , TID ity of Insulin - 03:45: 21:19 MEALS+HS, [place] Lispro 00 :30 First dose Medical (HumaLOG) + (after Branch Fsbg last Testing modificati on) on Mon10/07/22 at 2145, Until Discontinu ed, Routine melatonin 2022- No 3mg 3 mg, Univer s (MELATIN) 10-08 Oral, QHS, ity of tablet 3 mg 03:45: 21:19 First dose [place] 00 :30 on Mon Medical 10/07/22 at Branch 2145, Until Discontinu ed, Routine dextrose 2022-0 Yes 250mL 250 mL, IV Un teo 10% (D10W) 10-08 Infusion, ity of bolus 03:32: PRN - SEE [place] infusion 30 INSTRUCTIO Medic al 250 mL [...] 30 Starting Medical injection 1 on Mon [facility] 10/07/22 at 2132, Until Discontinu ed, YOKO, Blood Glucose < or = 70 mg/dL and patient is NPO, unable to swallow or has mental changes. dextrose 2022-0 2022- No 250mL 250 mL, IV U nivers 10% (D10W) 10-08 Infusion, ity of bolus 03:32: 21:19 PRN - SEE [place] infusion 30 :30 INSTRUCTIO Medic al 250 mL NS, Branch [...] glucose is < 80 mg/dL, repeat.
glucagon 0 2022- No 1mg 1 mg, Univers (GLUCAGEN 10-08 Intramuscu ity of DIAGNOSTIC 03:32: 21:19 lar, PRN, [place] KIT) 30 :30 Starting Medical injection 1 on Mon Branch mg 10/07/22 at 2132, Until 10/08/22 at 1519, YOKO, Blood Glucose < or = 70 mg/dL and patient is NPO, unable to swallow or has mental changes. sennosides- 0 Yes 1{tbl} 1 tablet, [facility] [place] docusate 10-07 Oral, ity of sodium 15:00: DAILY, [place] (SENOKOT-S) 00 First dose Me dical 8.6-50 mg on Mon Branch per tablet 10/07/22 at 1 tablet 0900, Until Discontinu ed, Routine tamsulosin Yes .4mg 0.4 mg, Univ ers (FLOMAX) 10-07 Oral, ity of capsule 0.4 15:00: DAILY, [place] mg 00 First dose Medical on Mon Branch 10/07/22 at 0900, Until Discontinu ed, Routine pantoprazol Yes 40mg 40 mg, Univ ers e 10-07 Oral, ity of (PROTONIX) 15:00: DAILY, [place] EC tablet 00 First dose Medi joyce 40 mg on Mon Branch 10/07/22 at 0900, Until Discontinu ed, Routine FLUoxetine Yes 20mg 20 mg, Unive rs (PROZAC) 10-07 Oral, ity of capsule 20 15:00: DAILY, [place] mg 00 First dose Medical on Mon Branch 10/07/22 at 0900, Until Discontinu ed, Routine aspirin EC 0 Yes 81mg 81 mg, Unive rs tablet 81 10-07 Oral, ity of mg 15:00: DAILY, [place] 00 First dose Medical on Mon Branch 10/07/22 at 0900, Until Discontinu ed, Routine sennosides- 0 202- No 1{tbl} 1 tablet, Univers docusate 10-07 Oral, ity of sodium 15:00: 21:19 DAILY, [place] (SENOKOT-S) 00 :30 First dose Me dical 8.6-50 mg on Mon Branch per tablet 10/07/22 at 1 tablet 0900, Until Discontinu ed, Routine tamsulosin 2022- No .4mg 0.4 mg, Uni vers (FLOMAX) 10-07 Oral, ity of capsule 0.4 15:00: 21:19 DAILY, [place] mg 00 :30 First dose Medical on Mon Branch 10/07/22 at 0900, Until Discontinu ed, Routine pantoprazol 2022- No 40mg 40 mg, Uni vers e 10-07 Oral, ity of (PROTONIX) 15:00: 21:19 DAILY, [place] EC tablet 00 :30 First dose Medi joyce 40 mg on Mon Branch 10/07/22 at 0900, Until Discontinu ed, Routine FLUoxetine 2022- No 20mg 20 mg, Univ ers (PROZAC) 10-07 Oral, ity of capsule 20 15:00: 21:19 DAILY, [place] mg 00 :30 First dose Medical on Mon Branch 10/07/22 at 0900, Until Discontinu ed, Routine aspirin EC 2022- No 81mg 81 mg, Univ ers tablet 81 10-07 Oral, ity of mg 15:00: 21:19 DAILY, [place] 00 :30 First dose Medical on Mon Branch 10/07/22 at 0900, Until Discontinu ed, Routine hydralAZINE 2022- No [id number] 10mg 10 mg, Univers (APRESOLINE 10-07 Slow IV ity of ) injection 12:15: 11:26 Push, [place] 10 mg 00 :00 ONCE, 1 Medical dose, On Branch Mon10/07/22 at 0615, STAT hydralAZINE 2022-2022- No [id number] 10mg 10 mg, Univers (APRESOLINE 10-07 Slow IV ity of ) injection 12:15: 11:26 [place], [place] 10 mg 00 :00 ONCE, 1 Medical dose, On Branch Mon10/07/22 at 0615, STAT simvastatin Yes 20mg 20 mg, Univ ers (ZOCOR) 10-07 Oral, QHS, ity of tablet 20 03:00: First dose [place] mg 00 on [facility] 10/06/22 at [place] 2100, Until Discontinu ed, Routine amLODIPine Yes 5mg 5 mg, Univer s (NORVASC) 10-07 Oral, QHS, ity of tablet 5 mg 03:00: First dose [place] 00 on [facility] 10/06/22 at [place] 2100, Until Discontinu ed, Routine simvastatin 2022- No 20mg 20 mg, Uni vers (ZOCOR) 10-07 Oral, QHS, ity o f tablet 20 03:00: 21:19 First dose [place] mg 00 :30 on [facility] 10/06/22 at [place] 2100, Until Discontinu ed, Routine amLODIPine 2022- No 5mg 5 mg, Unive rs (NORVAS) 10-07 Oral, QHS, ity of tablet 5 mg 03:00: 21:19 First dose [place] 00 :30 on [facility] 10/06/22 at [place] 2099, Until Discontinu ed, Routine levETIRAcet Yes 250mg 250 mg, Un teo am (KEPPRA) 10-07 Oral, BID, it y of tablet 250 02:00: First dose [place] mg 00 on [facility] 10/06/22 at [place] 2000, Until Discontinu ed, Routine levETIRAcet 2022- No 250mg 250 mg, U nivers am (KEPPRA) 10-07 Oral, BID, i ty of tablet 250 02:00: 21:19 First dose [place] mg 00 :30 on [facility] 10/06/22 at [place] 2000, Until Discontinu ed, Routine carvediloL 2022- Yes [id number] 6.25mg Take 1 Univers 6.25 mg 10-07 tablet by ity of tablet 00:00: 05:59 mouth in [place] 00 :00 the Medical morning Branch and 1 tablet in the evening. Take with meals. Do all this for 30 days. carvediloL 2022- Yes [id number] 6.25mg Take 1 Univers 6.25 mg 1-27 02-27 tablet by ity of tablet 00:00: 05:59 mouth in [place] 00 :00 the Medical morning Branch and 1 tablet in the evening. Take with meals. Do all this for 30 days. carvediloL 2022- Yes [id number] 6.25mg Take 1 Univers 6.25 mg 1-27 02-27 tablet by ity of tablet 00:00: 05:59 mouth in [place] 00 :00 the [facility] morning Branch and 1 tablet in the evening. Take with meals. Do all this for 30 days. carvediloL 2022-0 2022- No [id number] 6.25mg Take 1 Univers 6.25 mg 1-27 02-16 tablet by ity of tablet 00:00: 00:00 mouth in [place] 00 :00 the [facility] and 1 tablet in the evening. Take with meals. Do all this for 30 days. lactated 2022-0 2022- No 500mL at 200 Unive rs ringers IV 10-0627 mL/hr, 500 it y of infusion 20:15: 13:51 mL, [place] 500 mL 00 :00 Intravenou Medical s, ONCE, 1 Branch dose, On [facility] 10/06/22 at 1415, Routine lactated 2022-0 2022- No 500mL at 200 Unive rs ringers IV 10-06-27 mL/hr, 500 it y of infusion 20:15: 13:51 mL, [place] 500 mL 00 :00 Intravenou Medical s, ONCE, 1 Branch dose, On [facility] 10/06/22 at 1415, Routine hydralAZINE 2022-0 2022- No 10mg 10 mg, Uni vers (APRESOLINE 10-06 Slow IV ity of ) injection 20:00: 19:15 Push, [place] 10 mg 00 :00 ONCE, 1 Medical dose, On Branch [facility] 10/06/22 at 1400, STAT hydralAZINE 2022-0 2022- No 10mg 10 mg, Uni vers (APRESOLINE 10-06 Slow IV ity of ) injection 20:00: 19:15 [place], [place] 10 mg 00 :00 ONCE, 1 Medical dose, On Branch [facility] 10/06/22 at 1400, STAT carvediloL 2022-0 Yes 6.25mg 6.25 mg, U nivers (COREG) 10-06 Oral, BID ity of tablet 6.25 19:30: MEALS, [place] mg 00 First dose Medical (after Branch last modificati on) on [facility] 10/06/22 at 1330, Until Discontinu ed, Routine carvediloL 2022-0 3- No 6.25mg 6.25 mg, Univers (COREG) 10-06 Oral, BID ity of tablet 6.25 19:30: 21:19 MEALS, [place] mg 00 :30 First dose Medical (after Branch last modificati on) on [facility] 10/06/22 at 1330, Until Discontinu ed, Routine lisinopriL 2022-0 Yes 20mg 20 mg, Unive rs (PRINIVIL,Z 10-06 Oral, BID, it y of ESTRIL) 17:45: First dose [place] tablet 20 00 (after Medical mg last Branch modificati on) on [facility] 10/06/22 at 1145, Until Discontinu ed, Routine lisinopriL 2022-0 2022- No 20mg 20 mg, Univ ers (PRINIVIL,Z 10-06 Oral, BID, i ty of ESTRIL) 17:45: 21:19 First dose [place] tablet 20 00 :30 (after Medical mg last Branch modificati on) on [facility] 10/06/22 at 1145, Until Discontinu ed, Routine acetaminoph 2022-0 Yes 650mg 650 mg, Un teo en 10-06 Oral, ity of (TYLENOL) 17:33: Q6HPRN, [place] tablet 650 13 Starting Medic al mg on [facility] Branch 10/06/22 at 1133, Until Discontinu ed, Routine, Pain (scale 1-3) acetaminoph 2022-0 2022- No 650mg 650 mg, U nivers en 10-06 Oral, ity of (TYLENOL) 17:33: 21:19 Q6HPRN, [place] tablet 650 13 :30 Starting Medic al mg on [facility] Branch 10/06/22 at 1133, Until 10/08/22 at 1519, Routine, Pain (scale 1-3) gabapentin 2022-0 Yes 300mg 300 mg, Uni vers (NEURONTIN) 10-06 Oral, ity of capsule 300 17:30: BIDPRN, [place] mg 49 Starting Medical on [place] Branch 10/06/22 at 1130, Until Discontinu ed, Routine, Pain (scale 4-6) gabapentin 2022- No 300mg 300 mg, Un teo (NEURONTIN) 10-06 Oral, ity of capsule 300 17:30: 21:19 BIDPRN, [place] mg 49 :30 Starting Medical on [place] Branch 10/06/22 at 1130, Until 10/08/22 at 1519, Routine, Pain (scale 4-6) hydralAZINE 2022-0 2022- No [id number] 10mg 10 mg, Univers (APRESOLINE 10-06 Slow IV ity of ) injection 17:30: 16:31 [place], [place] 10 mg 00 :00 ONCE, 1 Medical dose, On Branch [facility] 10/06/22 at 1130, STAT hydralAZINE 0 2022- No [id number] 10mg 10 mg, Univers (APRESOLINE 10-06 Slow IV ity of ) injection 17:30: 16:31 [place], [place] 10 mg 00 :00 ONCE, 1 Medical dose, On Branch [facility] 10/06/22 at 1130, STAT lidocaine 2022- No ONCE INTRA U nivers 1% (PF) 10-06 PROCEDURE, ity o f (XYLOCAINE) 14:22: 15:52 Starting [place] injection 52 :21 on [facility] 10/06/22 at Branch 0822, Until [facility] 10/06/22 at 0952, Routine, CV Intraproce dure iodixanol 2022- No ONCE INTRA U nivers (VISIPAQUE 10-06 PROCEDURE, it y of 320-100 mL) 14:03: 15:52 Starting [place] injection 41 :21 on [facility] 10/06/22 at Branch 0803, Until [facility] 10/06/22 at 0952, Routine, CV Intraproce dure hydralAZINE 2022-0 2022- No [id number] 10mg Inject 0.5 Univers 20 mg/mL 10-06 mL ity of injection 00:00: 00:00 intravenou [place] 00 :00 sly once Medical now for 1 Branch dose. hydralAZINE 2022- No [id number] 10mg Inject 0.5 Univers 20 mg/mL 10-06 01-27 mL ity of injection 00:00: 00:00 intravenou [place] 00 :00 sly once Medical now for 1 Branch dose. amitriptyli 2021-09- No [id number] 25mg Take 1 Univers ne 25 mg 0-23 10-31 tablet by ity o f tablet 00:00: 04:59 mouth at [place] 00 :00 bedtime Medical for 7 Branch days. amitriptyli 2021-09- No [id number] 25mg Take 1 Univers ne 25 mg 0-23 10-31 tablet by ity o f tablet 00:00: 04:59 mouth at [place] 00 :00 bedtime Medical for 7 Branch days. amitriptyli 2021-09- No [id number] 25mg Take 1 Univers ne 25 mg 0-23 10-31 tablet by ity o f tablet 00:00: 04:59 mouth at [place] 00 :00 bedtime Medical for 7 Branch days. amitriptyli 2021-09- No [id number] 25mg Take 1 Univers ne 25 mg 0-23 10-31 tablet by ity o f tablet 00:00: 04:59 mouth at [place] 00 :00 bedtime Medical for 7 Branch days. tamsulosin 2021-09 Yes .4mg 0.4 mg, Univ ers (FLOMAX) 0-16 Oral, QHS, ity o f capsule 0.4 02:00: First dose [place] mg 00 on [facility] 06/25/22 Branch at 2100, Until Discontinu ed, Routine amLODIPine 2021-09 Yes 5mg 5 mg, Univer s (NORVASC) 0-16 Oral, QHS, ity of tablet 5 mg 02:00: First dose [place] 00 on [facility] 06/25/22 Branch at 2100, Until Discontinu ed, Routine tamsulosin 2021-09- No .4mg 0.4 mg, Uni vers (FLOMAX) 0-16 10-15 Oral, QHS, ity of capsule 0.4 02:00: 21:09 First dose [place] mg 00 :41 on [facility] 06/25/22 Branch at 2100, Until Discontinu ed, Routine amLODIPine 2021-09- No 5mg 5 mg, Unive rs (NORVASC) 0-16 10-15 Oral, QHS, ity of tablet 5 mg 02:00: 21:09 First dose [place] 00 :41 on [facility] Medical 06/25/22 Branch at 2100, Until Discontinu ed, Routine pantoprazol 2021-09- No [id number] 40mg Take 1 Univers e 0-16 01-15 tablet by ity of (PROTONIX) 00:00: 05:59 mouth in [place] 40 mg EC 00 :00 the Medical tablet morning Branch for 90 days. vitamin 2021-09- No [id number] 1000ug Take 1 U nivers B-12 1,000 0-16 01-15 tablet by ity of mcg tablet 00:00: 05:59 mouth in [place] 00 :00 the Medical morning Branch for 90 days. pantoprazol 2021-09- No [id number] 40mg Take 1 Univers e 0-16 01-15 tablet by ity of (PROTONIX) 00:00: 05:59 mouth in [place] 40 mg EC 00 :00 the Medical tablet morning Branch for 90 days. vitamin 2021-09- No [id number] 1000ug Take 1 U nivers B-12 1,000 0-16 01-15 tablet by ity of mcg tablet 00:00: 05:59 mouth in [place] 00 :00 the Medical morning Branch for 90 days. pantoprazol 2021-09- No [id number] 40mg Take 1 Univers e 0-16 01-15 tablet by ity of (PROTONIX) 00:00: 05:59 mouth in [place] 40 mg EC 00 :00 the Medical tablet morning Branch for 90 days. vitamin 2021-09- No [id number] 1000ug Take 1 U nivers B-12 1,000 0-16 01-15 tablet by ity of mcg tablet 00:00: 05:59 mouth in [place] 00 :00 the Medical morning Branch for 90 days. pantoprazol 2021-09- No [id number] 40mg Take 1 Univers e 0-16 01-15 tablet by ity of (PROTONIX) 00:00: 05:59 mouth in [place] 40 mg EC 00 :00 the Medical tablet morning Branch for 90 days. vitamin 2021-09- No [id number] 1000ug Take 1 U nivers B-12 1,000 0-16 01-15 tablet by ity of mcg tablet 00:00: 05:59 mouth in [place] 00 :00 the Medical morning Branch for 90 days. pantoprazol 2021-09- No [id number] 40mg Take 1 Univers e 0-16 01-15 tablet by ity of (PROTONIX) 00:00: 05:59 mouth in [place] 40 mg EC 00 :00 the Medical tablet morning Branch for 90 days. vitamin 2021-09- No [id number] 1000ug Take 1 U nivers B-12 1,000 0-16 01-15 tablet by ity of mcg tablet 00:00: 05:59 mouth in [place] 00 :00 the Medical morning Branch for 90 days. pantoprazol 2021-09- No [id number] 40mg Take 1 Univers e 0-16 01-15 tablet by ity of (PROTONIX) 00:00: 05:59 mouth in [place] 40 mg EC 00 :00 the Medical tablet morning Branch for 90 days. vitamin 2021-09- No [id number] 1000ug Take 1 U nivers B-12 1,000 0-16 01-15 tablet by ity of mcg tablet 00:00: 05:59 mouth in [place] 00 :00 the Medical morning Branch for 90 days. pantoprazol 2021-09- No [id number] 40mg Take 1 Univers e 0-16 01-15 tablet by ity of (PROTONIX) 00:00: 05:59 mouth in [place] 40 mg EC 00 :00 the Medical tablet morning Branch for 90 days. vitamin 2021-09- No [id number] 1000ug Take 1 U nivers B-12 1,000 0-16 01-15 tablet by ity of mcg tablet 00:00: 05:59 mouth in [place] 00 :00 the Medical morning Branch for 90 days. pantoprazol 2021-093- No [id number] 40mg Take 1 Univers e 0-16 01-15 tablet by ity of (PROTONIX) 00:00: 05:59 mouth in [place] 40 mg EC 00 :00 the Medical tablet morning Branch for 90 days. vitamin 2021-09- No [id number] 1000ug Take 1 U nivers B-12 1,000 0-16 01-15 tablet by ity of mcg tablet 00:00: 05:59 mouth in [place] 00 :00 the Medical morning Branch for 90 days. pantoprazol 2021-09- No [id number] 40mg Take 1 Univers e 0-16 01-15 tablet by ity of (PROTONIX) 00:00: 05:59 mouth in [place] 40 mg EC 00 :00 the Medical tablet morning Branch for 90 days. vitamin 2021-09- No [id number] 1000ug Take 1 U nivers B-12 1,000 0-16 01-15 tablet by ity of mcg tablet 00:00: 05:59 mouth in [place] 00 :00 the Medical morning Branch for 90 days. pantoprazol 2021-09- No [id number] 40mg Take 1 Univers e 0-16 01-15 tablet by ity of (PROTONIX) 00:00: 05:59 mouth in [place] 40 mg EC 00 :00 the Medical tablet morning Branch for 90 days. vitamin 2021-09- No [id number] 1000ug Take 1 U nivers B-12 1,000 [...] at 0900, Until Discontinu ed, Routine magnesium 2021-09 No 2g 2 g, IV Univ ers [...] Branch 1,000 mcg last modificati on) on [facility] 06/25/22 at 0900, Until Discontinu ed, Routine KCL 2021-09- No 40meq 40 mEq, Univers (KLOR-CON 0-15 10-15 Oral, ity of M20) tablet 13:45: 13:34 ONCE, 1 [place] 40 mEq 00 :00 dose, On Medical [facility] 06/25/22 at 0845, Routine levETIRAcet 2021-09 Yes 250mg 250 mg, [place] am (KEPPRA) 0-15 Oral, BID, it y of tablet 250 13:00: First dose [place] mg 00 on [facility] 06/25/22 Branch at 0800, Until Discontinu ed, Routine levETIRAcet 2021-09- No 250mg 250 mg, U nivers am (KEPPRA) 0-15 10-15 Oral, BID, i ty of tablet 250 13:00: 21:09 First dose [place] mg 00 :41 on [facility] 06/25/22 Branch at 0800, Until [...] [place] 24 :00 Medical Branch B COMPLEX 2021-09- No None Unive rs ORAL TAB 0-15 10-15 Entered ity of 12:45: 00:00 [place] 24 :00 Medical Branch M-VIT ORAL 2021-09- No None Univer s 0-15 10-15 Entered ity of 12:45: 00:00 [place] 24 :00 Medical Branch metFORMIN 2021-09- No [id number] 500mg Take 1 Univers 500 mg 0- tablet by ity of tablet 00:00: 05:59 mouth in [place] 00 :00 the Medical morning Branch and 1 tablet in the evening. Take with meals. Do all this for 90 days. tamsulosin 2021-09- No [id number] .4mg Take 1 Univers 0.4 mg 24 009-24 capsule by ity of hr capsule 00:00: 05:59 mouth at [place] 00 :00 bedtime Medical for 90 Branch days. amLODIPine 2021-09- No [id number] 5mg Take 1 Univers 5 mg tablet 09-24 tablet by it y of 00:00: 05:59 mouth at [place] 00 :00 bedtime [facility] for 90 Branch days. levETIRAcet 2021-09- No [id number] 250mg Take 1 Univers am 250 mg 09-24 tablet by ity of tablet 00:00: 05:59 mouth in [place] 00 :00 the Medical morning Branch and 1 tablet in the evening. Do all this for 90 days. lisinopriL 2021-09- No [id number] 20mg Take 1 [facility] 20 mg 009-24 tablet by ity of tablet 00:00: 05:59 mouth in [place] 00 :00 the Medical morning Branch and 1 tablet in the evening. Do all this for 90 days. FLUoxetine 2021-09- No [id number] 20mg Take 1 [facility] 20 mg 009-24 capsule by ity of capsule 00:00: 05:59 mouth in [place] 00 :00 the [facility] morning Branch for 90 days. memantine 2021-09- No [id number] 10mg Take 1 U nivers 10 mg 0- tablet by ity of tablet 00:00: 05:59 mouth in [place] 00 :00 the Medical morning Branch and 1 tablet in the evening. Do all this for 90 days. pyridostigm 2021-09- No [id number] 60mg Take 1 Univers ine 60 mg 0- tablet by ity of tablet 00:00: 05:59 mouth as [place] 00 :00 needed for Medical Other Branch (HYPOTENSI ON) for up to 90 days. simvastatin 2021-09- No [id number] 20mg Take 1 [facility] 20 mg 0-14 tablet by ity of tablet 00:00: 05:59 mouth at [place] 00 :00 [facility] for 90 Branch days. aspirin 81 2021-09- No [id number] 81mg Take 1 Univers mg chewable 0-14 tablet by it y of tablet 00:00: 05:59 mouth in [place] 00 :00 the [facility] morning [place] for 90 days. metFORMIN 2021-09- No [id number] 500mg Take 1 [facility] 500 mg 0-14 tablet by ity of tablet 00:00: 05:59 mouth in [place] 00 :00 the [facility] morning [place] and 1 tablet in the evening. Take with meals. Do all this for 90 days. tamsulosin 2021-09- No [id number] .4mg Take 1 Univers 0.4 mg 24 09-24 capsule by ity of hr capsule 00:00: 05:[address] [facility] 00 :00 [facility] for 90 Branch days. amLODIPine 2021-09- No [id number] 5mg Take 1 Univers 5 mg tablet 09-24 tablet by it y of 00:00: 05:59 mouth at [place] 00 :00 [facility] for 90 Branch days. levETIRAcet 2021-09- No [id number] 250mg Take 1 Univers am 250 mg 09-24 tablet by ity of tablet 00:00: 05:59 mouth in [place] 00 :00 the [facility] morning [place] and 1 tablet in the evening. Do all this for 90 days. lisinopriL 2021-09- No [id number] 20mg Take 1 Univers 20 mg 015 -14 tablet by ity of tablet 00:00: 05:59 mouth in [place] 00 :00 the [facility] morning [place] and 1 tablet in the evening. Do all this for 90 days. FLUoxetine 2021-09- No [id number] 20mg Take 1 Univers 20 mg 0-15 -14 capsule by ity of capsule 00:00: 05:59 mouth in [place] 00 :00 the [facility] morning [place] for 90 days. memantine 2021-09- No [id number] 10mg Take 1 U nivers 10 mg 0-15 -14 tablet by ity of tablet 00:00: 05:59 mouth in [place] 00 :00 the Medical morning Branch and 1 tablet in the evening. Do all this for 90 days. pyridostigm 2021-09- No [id number] 60mg Take 1 Univers ine 60 mg 015 09-24 tablet by ity of tablet 00:00: 05:59 mouth as [place] 00 :00 needed for Medical Other Branch (HYPOTENSI ON) for up to 90 days. simvastatin 2021-09- No [id number] 20mg Take 1 Univers 20 mg 009-24 tablet by ity of tablet 00:00: 05:59 mouth at [place] 00 :00 bedtime Medical for 90 Branch days. aspirin 81 2021-09- No [id number] 81mg Take 1 Univers mg chewable 009-24 tablet by it y of tablet 00:00: 05:59 mouth in [place] 00 :00 the Medical morning Branch for 90 days. KCL 20 mEq 2021-09- No [id number] 40meq Take 2 Univers tablet 09-24 tablets by ity of 00:00: 05:59 mouth in [place] 00 :00 the Medical morning Branch for 90 days. metFORMIN 2021-09- No [id number] 500mg Take 1 [facility] 500 mg 009-24 tablet by ity of tablet 00:00: 05:59 mouth in [place] 00 :00 the Medical morning Branch and 1 tablet in the evening. Take with meals. Do all this for 90 days. tamsulosin 2021-09- No [id number] .4mg Take 1 Univers 0.4 mg 24 09-24 capsule by ity of hr capsule 00:00: 05:[address] [facility] 00 :00 bedtime Medical for 90 Branch days. amLODIPine 2021-09- No [id number] 5mg Take 1 Univers 5 mg tablet 09-24 tablet by it y of 00:00: 05:59 mouth at [place] 00 :00 bedtime Medical for 90 Branch days. levETIRAcet 2021-09- No [id number] 250mg Take 1 [facility] am 250 mg 09-24 tablet by ity of tablet 00:00: 05:59 mouth in [place] 00 :00 the Medical morning Branch and 1 tablet in the evening. Do all this for 90 days. lisinopriL 2021-09- No [id number] 20mg Take 1 [facility] 20 mg 0-15 -14 tablet by ity of tablet 00:00: 05:59 mouth in [place] 00 :00 the Medical morning Branch and 1 tablet in the evening. Do all this for 90 days. FLUoxetine 2021-09- No [id number] 20mg Take 1 [facility] 20 mg 0-15 - capsule by ity of capsule 00:00: 05:59 mouth in [place] 00 :00 the [facility] for 90 days. memantine 2021-09- No [id number] 10mg Take 1 U nivers 10 mg 0-15 - tablet by ity of tablet 00:00: 05:59 mouth in [place] 00 :00 the [facility] morning [place] and 1 tablet in the evening. Do all this for 90 days. pyridostigm 2021-09- No [id number] 60mg Take 1 Univers ine 60 mg 009-24 tablet by ity of tablet 00:00: 05:59 mouth as [place] 00 :00 needed for Medical Other Branch (HYPOTENSI ON) for up to 90 days. simvastatin 2021-09- No [id number] 20mg Take 1 [facility] 20 mg 0- tablet by ity of tablet 00:00: 05:59 mouth at [place] 00 :00 bedtime Medical for 90 Branch days. aspirin 81 2021-09- No [id number] 81mg Take 1 Univers mg chewable 009-24 tablet by it y of tablet 00:00: 05:59 mouth in [place] 00 :00 the [facility] for 90 days. KCL 20 mEq 2021-09- No [id number] 40meq Take 2 Univers tablet 014 tablets by ity of 00:00: 05:59 mouth in [place] 00 :00 the [facility] morning [place] for 90 days. metFORMIN 2021-093- No [id number] 500mg Take 1 [facility] 500 mg 0-15 -14 tablet by ity of tablet 00:00: 05:59 mouth in [place] 00 :00 the Medical morning Branch and 1 tablet in the evening. Take with meals. Do all this for 90 days. tamsulosin 2021-09- No [id number] .4mg Take 1 Univers 0.4 mg 24 0-15 -14 capsule by ity of hr capsule 00:00: 05:59 mouth at [place] 00 :00 bedtime Medical for 90 Branch days. amLODIPine 2021-09- No [id number] 5mg Take 1 Univers 5 mg tablet 0-15 -14 tablet by it y of 00:00: 05:59 mouth at [place] 00 :00 bedtime Medical for 90 Branch days. levETIRAcet 2021-09- No [id number] 250mg Take 1 [facility] am 250 mg 0-15 -14 tablet by ity of tablet 00:00: 05:59 mouth in [place] 00 :00 the Medical morning Branch and 1 tablet in the evening. Do all this for 90 days. lisinopriL 2021-09- No [id number] 20mg Take 1 [facility] 20 mg 0-15 -14 tablet by ity of tablet 00:00: 05:59 mouth in [place] 00 :00 the Medical morning Branch and 1 tablet in the evening. Do all this for 90 days. FLUoxetine 2021-09- No [id number] 20mg Take 1 [facility] 20 mg 0-15 -14 capsule by ity of capsule 00:00: 05:59 mouth in [place] 00 :00 the Medical morning Branch for 90 days. memantine 2021-09- No [id number] 10mg Take 1 U nivers 10 mg 0-15 -14 tablet by ity of tablet 00:00: 05:59 mouth in [place] 00 :00 the Medical morning Branch and 1 tablet in the evening. Do all this for 90 days. pyridostigm 2021-09- No [id number] 60mg Take 1 Univers ine 60 mg 0-15 -14 tablet by ity of tablet 00:00: 05:59 mouth as [place] 00 :00 needed for Medical Other Branch (HYPOTENSI ON) for up to 90 days. simvastatin 2021-09- No [id number] 20mg Take 1 Univers 20 mg 0-15 -14 tablet by ity of tablet 00:00: 05:59 mouth at [place] 00 :00 bedtime Medical for 90 Branch days. aspirin 81 2021-09- No [id number] 81mg Take 1 Univers mg chewable 0-15 -14 tablet by it y of tablet 00:00: 05:59 mouth in [place] 00 :00 the [facility] for 90 days. KCL 20 mEq 2021-09- No [id number] 40meq Take 2 Univers tablet 0- tablets by ity of 00:00: 05:59 mouth in [place] 00 :00 the [facility] for 90 days. metFORMIN 2021-09- No [id number] 500mg Take 1 [facility] 500 mg 0- tablet by ity of tablet 00:00: 05:59 mouth in [place] 00 :00 the [facility] and 1 tablet in the evening. Take with meals. Do all this for 90 days. tamsulosin 2021-09- No [id number] .4mg Take 1 Univers 0.4 mg 24 009-24 capsule by ity of hr capsule 00:00: 05:[address] [facility] 00 :00 bedtime [facility] for 90 Branch days. amLODIPine 2021-09- No [id number] 5mg Take 1 Univers 5 mg tablet 009-24 tablet by it y of 00:00: 05:59 mouth at [place] 00 :00 [facility] for 90 Branch days. levETIRAcet 2021-09- No [id number] 250mg Take 1 Univers am 250 mg 09-24 tablet by ity of tablet 00:00: 05:59 mouth in [place] 00 :00 the [facility] and 1 tablet in the evening. Do all this for 90 days. lisinopriL 2021-09- No [id number] 20mg Take 1 Univers 20 mg 0- tablet by ity of tablet 00:00: 05:59 mouth in [place] 00 :00 the [facility] and 1 tablet in the evening. Do all this for 90 days. FLUoxetine 2021-09- No [id number] 20mg Take 1 Univers 20 mg 0- capsule by ity of capsule 00:00: 05:59 mouth in [place] 00 :00 the [facility] for 90 days. memantine 2021-09- No [id number] 10mg Take 1 U nivers 10 mg 0- tablet by ity of tablet 00:00: 05:59 mouth in [place] 00 :00 the [facility] and 1 tablet in the evening. Do all this for 90 days. pyridostigm 2021-09- No [id number] 60mg Take 1 Univers ine 60 mg 0-15 -14 tablet by ity of tablet 00:00: 05:59 mouth as [place] 00 :00 needed for Medical Other Branch (HYPOTENSI ON) for up to 90 days. simvastatin 2021-09- No [id number] 20mg Take 1 Univers 20 mg 0-15 -14 tablet by ity of tablet 00:00: 05:59 mouth at [place] 00 :00 bedtime Medical for 90 Branch days. aspirin 81 2021-09- No [id number] 81mg Take 1 Univers mg chewable 0-15 -14 tablet by it y of tablet 00:00: 05:59 mouth in [place] 00 :00 the Medical morning Branch for 90 days. KCL 20 mEq 2021-09- No [id number] 40meq Take 2 Univers tablet 009-24 tablets by ity of 00:00: 05:59 mouth in [place] 00 :00 the Medical morning Branch for 90 days. metFORMIN 2021-09- No [id number] 500mg Take 1 [facility] 500 mg 009-24 tablet by ity of tablet 00:00: 05:59 mouth in [place] 00 :00 the Medical morning Branch and 1 tablet in the evening. Take with meals. Do all this for 90 days. tamsulosin 2021-09- No [id number] .4mg Take 1 Univers 0.4 mg 24 009-24 capsule by ity of hr capsule 00:00: 05:59 mouth [place] 00 :00 bedtime Medical for 90 Branch days. amLODIPine 2021-09- No [id number] 5mg Take 1 Univers 5 mg tablet 009-24 tablet by it y of 00:00: 05:59 mouth at [place] 00 :00 bedtime Medical for 90 Branch days. levETIRAcet 2021-09- No [id number] 250mg Take 1 [facility] am 250 mg 009-24 tablet by ity of tablet 00:00: 05:59 mouth in [place] 00 :00 the Medical morning Branch and 1 tablet in the evening. Do all this for 90 days. lisinopriL 2021-09- No [id number] 20mg Take 1 [facility] 20 mg 0-15 -14 tablet by ity of tablet 00:00: 05:59 mouth in [place] 00 :00 the Medical morning Branch and 1 tablet in the evening. Do all this for 90 days. FLUoxetine 2021-09- No [id number] 20mg Take 1 [facility] 20 mg 0-15 -14 capsule by ity of capsule 00:00: 05:59 mouth in [place] 00 :00 the Medical morning Branch for 90 days. memantine 2021-09- No [id number] 10mg Take 1 U nivers 10 mg 0-15 -14 tablet by ity of tablet 00:00: 05:59 mouth in [place] 00 :00 the Medical morning Branch and 1 tablet in the evening. Do all this for 90 days. pyridostigm 2021-09- No [id number] 60mg Take 1 Univers ine 60 mg 0-15 - tablet by ity of tablet 00:00: 05:59 mouth as [place] 00 :00 needed for Medical Other Branch (HYPOTENSI ON) for up to 90 days. simvastatin 2021-09- No [id number] 20mg Take 1 [facility] 20 mg 0-15 -14 tablet by ity of tablet 00:00: 05:59 mouth at [place] 00 :00 bedtime Medical for 90 Branch days. aspirin 81 2021-09- No [id number] 81mg Take 1 Univers mg chewable 0-15 -14 tablet by it y of tablet 00:00: 05:59 mouth in [place] 00 :00 the [facility] morning Branch for 90 days. KCL 20 mEq 2021-09- No [id number] 40meq Take 2 Univers tablet 015 14 tablets by ity of 00:00: 05:59 mouth in [place] 00 :00 the Medical morning Branch for 90 days. metFORMIN 2021-09- No [id number] 500mg Take 1 [facility] 500 mg 0-15 -14 tablet by ity of tablet 00:00: 05:59 mouth in [place] 00 :00 the Medical morning Branch and 1 tablet in the evening. Take with meals. Do all this for 90 days. tamsulosin 2021-09- No [id number] .4mg Take 1 [facility] 0.4 mg 24 0-15 -14 capsule by ity of hr capsule 00:00: 05:59 mouth at [place] 00 :00 bedtime Medical for 90 Branch days. amLODIPine 2021-09- No [id number] 5mg Take 1 Univers 5 mg tablet 0-14 tablet by it y of 00:00: 05:59 mouth at [place] 00 :00 bedtime Medical for 90 Branch days. levETIRAcet 2021-09- No [id number] 250mg Take 1 Univers am 250 mg 0-15 -14 tablet by ity of tablet 00:00: 05:59 mouth in [place] 00 :00 the Medical morning Branch and 1 tablet in the evening. Do all this for 90 days. lisinopriL 2021-09- No [id number] 20mg Take 1 [facility] 20 mg 0- tablet by ity of tablet 00:00: 05:59 mouth in [place] 00 :00 the Medical morning Branch and 1 tablet in the evening. Do all this for 90 days. FLUoxetine 2021-09- No [id number] 20mg Take 1 Univers 20 mg 0- capsule by ity of capsule 00:00: 05:59 mouth in [place] 00 :00 the [facility] morning [place] for 90 days. memantine 2021-09- No [id number] 10mg Take 1 U nivers 10 mg 009-24 tablet by ity of tablet 00:00: 05:59 mouth in [place] 00 :00 the [facility] morning Branch and 1 tablet in the evening. Do all this for 90 days. pyridostigm 2021-09- No [id number] 60mg Take 1 Univers ine 60 mg 0-14 tablet by ity of tablet 00:00: 05:59 mouth as [place] 00 :00 needed for Medical Other Branch (HYPOTENSI ON) for up to 90 days. simvastatin 2021-09- No [id number] 20mg Take 1 Univers 20 mg 015 -14 tablet by ity of tablet 00:00: 05:59 mouth at [place] 00 :00 bedtime Medical for 90 Branch days. aspirin 81 2021-09- No [id number] 81mg Take 1 Univers mg chewable 0-15 -14 tablet by it y of tablet 00:00: 05:59 mouth in [place] 00 :00 the Medical morning [place] for 90 days. KCL 20 mEq 2021-09- No [id number] 40meq Take 2 Univers tablet 025 09-14 tablets by ity of 00:00: 05:59 mouth in [place] 00 :00 the [facility] for 90 days. metFORMIN 2021-09- No [id number] 500mg Take 1 [facility] 500 mg 0-15 - tablet by ity of tablet 00:00: 05:59 mouth in [place] 00 :00 the [facility] and 1 tablet in the evening. Take with meals. Do all this for 90 days. tamsulosin 2021-09- No [id number] .4mg Take 1 Univers 0.4 mg 24 009-24 capsule by ity of hr capsule 00:00: 05:[address] [facility] 00 :00 bedtime Medical for 90 Branch days. amLODIPine 2021-09- No [id number] 5mg Take 1 Univers 5 mg tablet 09-24 tablet by it y of 00:00: 05:59 mouth at [place] 00 :00 bedtime [facility] for 90 Branch days. levETIRAcet 2021-09- No [id number] 250mg Take 1 Univers am 250 mg 09-24 tablet by ity of tablet 00:00: 05:59 mouth in [place] 00 :00 the [facility] and 1 tablet in the evening. Do all this for 90 days. lisinopriL 2021-09- No [id number] 20mg Take 1 [facility] 20 mg 0-09-24 tablet by ity of tablet 00:00: 05:59 mouth in [place] 00 :00 the [facility] and 1 tablet in the evening. Do all this for 90 days. FLUoxetine 2021-09- No [id number] 20mg Take 1 Univers 20 mg 009-24 capsule by ity of capsule 00:00: 05:59 mouth in [place] 00 :00 [facility] for 90 days. memantine 2021-09- No [id number] 10mg Take 1 U nivers 10 mg 0-15 - tablet by ity of tablet 00:00: 05:59 mouth in [place] 00 :00 the [facility] and 1 tablet in the evening. Do all this for 90 days. pyridostigm 2021-09- No [id number] 60mg Take 1 Univers ine 60 mg 0-25 09- tablet by ity of tablet 00:00: 05:59 mouth as [place] 00 :00 needed for Medical Other Branch (HYPOTENSI ON) for up to 90 days. simvastatin 2021-09- No [id number] 20mg Take 1 [facility] 20 mg 0- tablet by ity of tablet 00:00: 05:59 mouth at [place] 00 :00 bedtime Medical for 90 Branch days. aspirin 81 2021-09- No [id number] 81mg Take 1 [facility] mg chewable 0- tablet by it y of tablet 00:00: 05:59 mouth in [place] 00 :00 the Medical morning Branch for 90 days. KCL 20 mEq 2021-09- No [id number] 40meq Take 2 Univers tablet 009-24 tablets by ity of 00:00: 05:59 mouth in [place] 00 :00 the Medical morning Branch for 90 days. metFORMIN 2021-09- No [id number] 500mg Take 1 [facility] 500 mg 0- tablet by ity of tablet 00:00: 05:59 mouth in [place] 00 :00 the Medical morning Branch and 1 tablet in the evening. Take with meals. Do all this for 90 days. tamsulosin 2021-09- No [id number] .4mg Take 1 Univers 0.4 mg 24 09-24 capsule by ity of hr capsule 00:00: 05:[address] [facility] 00 :00 bedtime [facility] for 90 Branch days. amLODIPine 2021-09- No [id number] 5mg Take 1 Univers 5 mg tablet 009-24 tablet by it y of 00:00: 05:59 mouth at [place] 00 :00 bedtime [facility] for 90 Branch days. levETIRAcet 2021-09- No [id number] 250mg Take 1 [facility] am 250 mg 0- tablet by ity of tablet 00:00: 05:59 mouth in [place] 00 :00 the Medical morning Branch and 1 tablet in the evening. Do all this for 90 days. lisinopriL 2021-09- No [id number] 20mg Take 1 [facility] 20 mg 0-15 -14 tablet by ity of tablet 00:00: 05:59 mouth in [place] 00 :00 the Medical morning Branch and 1 tablet in the evening. Do all this for 90 days. FLUoxetine 2021-09- No [id number] 20mg Take 1 [facility] 20 mg 0-15 -14 capsule by ity of capsule 00:00: 05:59 mouth in [place] 00 :00 the Medical morning Branch for 90 days. memantine 2021-09- No [id number] 10mg Take 1 U nivers 10 mg 0-15 -14 tablet by ity of tablet 00:00: 05:59 mouth in [place] 00 :00 the Medical morning Branch and 1 tablet in the evening. Do all this for 90 days. pyridostigm 2021-09- No [id number] 60mg Take 1 Univers ine 60 mg 0-15 -14 tablet by ity of tablet 00:00: 05:59 mouth as [place] 00 :00 needed for Medical Other Branch (HYPOTENSI ON) for up to 90 days. simvastatin 2021-09- No [id number] 20mg Take 1 [facility] 20 mg 0-15 -14 tablet by ity of tablet 00:00: 05:59 mouth at [place] 00 :00 bedtime Medical for 90 Branch days. aspirin 81 2021-09- No [id number] 81mg Take 1 [facility] mg chewable 009-24 tablet by it y of tablet 00:00: 05:59 mouth in [place] 00 :00 the Medical morning Branch for 90 days. KCL 20 mEq 2021-09- No [id number] 40meq Take 2 Univers tablet 009-24 tablets by ity of 00:00: 05:59 mouth in [place] 00 :00 the Medical morning Branch for 90 days. metFORMIN 2021-09- No [id number] 500mg Take 1 [facility] 500 mg 009-24 tablet by ity of tablet 00:00: 05:59 mouth in [place] 00 :00 the Medical morning Branch and 1 tablet in the evening. Take with meals. Do all this for 90 days. tamsulosin 2021-09- No [id number] .4mg Take 1 [facility] 0.4 mg 24 009-24 capsule by ity of hr capsule 00:00: 05:59 mouth [place] 00 :00 bedtime Medical for 90 Branch days. amLODIPine 2021-09- No [id number] 5mg Take 1 [facility] 5 mg tablet 009-24 tablet by it y of 00:00: 05:59 mouth at [place] 00 :00 bedtime Medical for 90 Branch days. levETIRAcet 2021-09- No [id number] 250mg Take 1 [facility] am 250 mg 0-15 -14 tablet by ity of tablet 00:00: 05:59 mouth in [place] 00 :00 the Medical morning Branch and 1 tablet in the evening. Do all this for 90 days. lisinopriL 2021-09- No [id number] 20mg Take 1 [facility] 20 mg 0-15 -14 tablet by ity of tablet 00:00: 05:59 mouth in [place] 00 :00 the Medical morning Branch and 1 tablet in the evening. Do all this for 90 days. FLUoxetine 2021-09- No [id number] 20mg Take 1 [facility] 20 mg 0- capsule by ity of capsule 00:00: 05:59 mouth in [place] 00 :00 the [facility] morning [place] for 90 days. memantine 2021-09- No [id number] 10mg Take 1 U nivers 10 mg 009-24 tablet by ity of tablet 00:00: 05:59 mouth in [place] 00 :00 the [facility] morning Branch and 1 tablet in the evening. Do all this for 90 days. pyridostigm 2021-09- No [id number] 60mg Take 1 Univers ine 60 mg 009-24 tablet by ity of tablet 00:00: 05:59 mouth as [place] 00 :00 needed for Medical Other Branch (HYPOTENSI ON) for up to 90 days. simvastatin 2021-09- No [id number] 20mg Take 1 [facility] 20 mg 0- tablet by ity of tablet 00:00: 05:59 mouth at [place] 00 :00 bedtime Medical for 90 Branch days. aspirin 81 2021-093- No [id number] 81mg Take 1 [facility] mg chewable 0-14 tablet by it y of tablet 00:00: 05:59 mouth in [place] 00 :00 the [facility] morning [place] for 90 days. KCL 20 mEq 2021-09- No [id number] 40meq Take 2 Univers tablet 0-15 -14 tablets by ity of 00:00: 05:59 mouth in [place] 00 :00 the Medical morning [place] for 90 days. gabapentin 2021-09- No [id number] 300mg Take 1 [facility] 300 mg 0-15 12-15 capsule by ity of capsule 00:00: 05:59 mouth as [place] 00 :00 needed for Medical Pain Branch (scale 4-6) for up to 60 days. gabapentin 2021-09- No [id number] 300mg Take 1 [facility] 300 mg 0-15 12-15 capsule by ity of capsule 00:00: 05:59 mouth as [place] 00 :00 needed for Medical Pain Branch (scale 4-6) for up to 60 days. gabapentin 2021-09- No [id number] 300mg Take 1 [facility] 300 mg 0-15 12-15 capsule by ity of capsule 00:00: 05:59 mouth as [place] 00 :00 needed for Medical Pain Branch (scale 4-6) for up to 60 days. gabapentin 2021-09- No [id number] 300mg Take 1 [facility] 300 mg 0-15 12-15 capsule by ity of capsule 00:00: 05:59 mouth as [place] 00 :00 needed for Medical Pain Branch (scale 4-6) for up to 60 days. gabapentin 2021-09- No [id number] 300mg Take 1 [facility] 300 mg 0-15 12-15 capsule by ity of capsule 00:00: 05:59 mouth as [place] 00 :00 needed for Medical Pain Branch (scale 4-6) for up to 60 days. gabapentin 2021-09- No [id number] 300mg Take 1 [facility] 300 mg 0-15 12-15 capsule by ity of capsule 00:00: 05:59 mouth as [place] 00 :00 needed for Medical Pain Branch (scale 4-6) for up to 60 days. gabapentin 2021-09- No [id number] 300mg Take 1 [facility] 300 mg 0-15 12-15 capsule by ity of capsule 00:00: 05:59 mouth as [place] 00 :00 needed for Medical Pain Branch (scale 4-6) for up to 60 days. gabapentin 2021-09- No [id number] 300mg Take 1 [facility] 300 mg 0-15 12-15 capsule by ity of capsule 00:00: 05:59 mouth as [place] 00 :00 needed for Medical Pain Branch (scale 4-6) for up to 60 days. gabapentin 2021-09- No [id number] 300mg Take 1 [facility] 300 mg 0-15 12-15 capsule by ity of capsule 00:00: 05:59 mouth as [place] 00 :00 needed for Medical Pain Branch (scale 4-6) for up to 60 days. amitriptyli 2021-09- No [id number] 100mg Take 2 Univers ne 50 mg 0-15 10-23 tablets by ity of tablet 00:00: 04:59 mouth at [place] 00 :00 bedtime Medical for 7 Branch days. amitriptyli 2021-09- No [id number] 100mg Take 2 Univers ne 50 mg 0-15 10-23 tablets by ity of tablet 00:00: 04:59 mouth at [place] 00 :00 bedtime Medical for 7 Branch days. amitriptyli 2021-09- No [id number] 100mg Take 2 Univers ne 50 mg 0-15 10-23 tablets by ity of tablet 00:00: 04:59 mouth at [place] 00 :00 bedtime Medical for 7 Branch days. amLODIPine 2021-09 No 10mg 10 mg, Univ ers (NORVASC) 0- 10-15 Oral, ity of tablet 10 14:00: 12:15 DAILY, [place] mg 00 :01 First dose Medical (after Branch last modificati on) on 06/24/22 at 0900, Until Discontinu ed, Routine lidocaine 2021-09 ONCE INTRA U nivers 2% 06-24 PROCEDURE, ity of (XYLOCAINE) 13:31: 13:36 [place] 20 mg/mL (2 40 :35 on Mon Medica l %) 06/24/22 Branch injection at 0831, Until Mon06/24/22 at 0836, Routine, CV Intraproce dure vancomycin 2021-09- No CONTINUOUS Univers 1000 mg in 06-24 PRN, ity of NS 200 mL 13:30: 13:30 Starting [place] as RTU IV 55 :55 on Mon Medical Piggyback 06/24/22 Branch at 0830, Until [...] mg 00 :41 First dose Medical on [facility] 06/23/22 at 1700, Until Discontinu ed, Routine amLODIPine 2021-09 No 5mg 5 mg, Unive rs (NORVASC) 0- Oral, ity of tablet 5 mg 16:52: 17:31 ONCE, 1 [place] 00 :[place] dose, On Medical [facility] 06/23/22 at 1200, Routine captopriL 2021-09 No 12.5mg 12.5 mg, U nivers (CAPOTEN) 0-23 06- Oral, ity of tablet 12.5 04:45: 04:56 ONCE, 1 [place] mg 00 :00 dose, On [facility] 06/22/22 at 2345, Routine labetaloL 2021-09 No 5mg 5 mg, Slow U nivers (NORMODYNE) 006-23 IV Push, ity of injection 5 03:45: 03:12 ONCE, 1 [place] mg 00 :00 dose, On [facility] 06/22/22 at 2245, Routine vitamin 2021-09 No 1000ug 1,000 mcg, U nivers B-12 0-08 20- Oral, ity of (CYANOCOBAL 20:15: 12:15 DAILY, Shawn as CODY) 00 :01 First dose Medical tablet (after Branch 1,000 mcg last modificati on) on [facility] 06/22/22 at 1515, Until Discontinu ed, Routine tamsulosin 2021-09 No .4mg 0.4 mg, Uni vers (FLOMAX) 0-12 -15 Oral, ity of capsule 0.4 16:30: 12:15 DAILY, [place] as mg 00 :01 First dose Medical on [facility] 06/22/22 at 1130, Until Discontinu ed, Routine pantoprazol 2021-09 Yes 40mg 40 mg, Univ ers e 0-12 Oral, ity of (PROTONIX) 14:00: DAILY, [place] EC tablet 00 First dose Medi joyce 40 mg on [facility] 06/22/22 at 0900, Until Discontinu ed, Routine pantoprazol 2021-09 No 40mg 40 mg, Uni vers e 0-12 10-15 Oral, ity of (PROTONIX) 14:00: 21:09 DAILY, [place] EC tablet 00 :41 First dose Medi joyce 40 mg on Mon Branch 06/22/22 at 0900, Until Discontinu ed, Routine iron 2021-09 No 1000mg 1,000 mg, Unive rs dextran 0-08 20-12 IV ity of (INFED) 13:15: 19:42 Infusion, [place] 1,000 mg in 00 :40 ONCE, 1 Medic al NaCl 0.9% dose, On Branch (NS) 500 mL [facility] IV infusion 06/22/22 at 0815, Administer over 1.5 Hours, 500 mL iron 2021-09 No 25mg 25 mg, IV Univers dextran 006-22 Piggyback, ity o f (INFED) 25 13:15: 17:35 ONCE, 1 [place] as mg in NaCl 00 :53 dose, On Medic al 0.9% (NS) [facility] Branch 100 mL IV 06/22/22 piggyback at 0815, Administer over 15 Minutes, 100 mL magnesium 2021-09 4g 4 g, IV Univ ers sulfate in 012 Piggyback, it y of water 4 12:15: 15:48 at 25 [place] gram/50 mL 00 :01 mL/hr Medical (8 %) IV Administer Branc h Piggyback 4 over 120 g Minutes, ONCE, 1 dose, On Mon06/22/22 at 0715, Routine amLODIPine 2021-09 No 5mg 5 mg, Unive rs (NORVASC) 012 10-13 Oral, ity of tablet 5 mg 08:30: 16:53 DAILY, [place] as 00 :37 First dose Medical on [facility] Branch 06/22/22 at 0330, Until Discontinu ed, Routine melatonin 2021-09 Yes 3mg 3 mg, Univers (MELATIN) 0-12 Oral, QHS, ity of tablet 3 mg 02:00: First dose [place] 00 on [facility] 06/21/22 Branch at 2100, Until Discontinu ed, Routine melatonin 2022-1 2022- No 3mg 3 mg, Univer s (MELATIN) 0-12 10-15 Oral, QHS, ity of tablet 3 mg 02:00: 21:09 First dose [place] 00 :41 on [facility] 06/21/22 Branch at 2100, Until Discontinu ed, Routine hydrOXYzine 2021-09- No 10mg 10 mg, Uni vers (ATARAX) 0-12 10-12 Oral, ity of tablet 10 02:00: 01:08 ONCE, 1 [place] mg 00 :00 dose, On [facility] 06/21/22 at 2100, Routine enoxaparin 2021-09 [...] mg (after Branch last modificati on) on [facility] 06/21/22 at 1400, Until Discontinu ed, Routine Sliding 2021-09 Yes Subcutaneo Univ ers Scale 0-11 us, TID ity of Insulin - 17:00: MEALS+HS, [place] as Lispro 00 First dose Medical (HumaLOG) + on [facility] 06/21/22 Testing at 1200, Until Discontinu ed, Routine Sliding 2021-09- No Subcutaneo Uni vers Scale 0-11 10-15 us, TID ity of Insulin - 17:00: 21:09 MEALS+HS, [place] Lispro 00 :41 First dose Medical (HumaLOG) + on [facility] 06/21/22 Testing at 1200, Until Discontinu ed, Routine sulfur 2021-09 No [id number] 5mL 5 mL, Unive rs hexafluorid 0-11 10-11 Intravenou i ty of e microsphr 17:00: 17:00 s, ONCE, 1 [place] (LUMASON) 00 :00 dose, On Medica l injection 5 Tue Branch mL 06/21/22 at 1200, Routine
membership counselor approving Restricted medication : WILTON NICHOLAS enalapril 2021-09 Yes 20mg 20 mg, Univer s (VASOTEC) 0-11 Oral, BID, ity of tablet 20 16:00: First dose [place] mg 00 on [facility] 06/21/22 Branch at 1100, Until Discontinu ed, Routine enalapril 2021-09 No 20mg 20 mg, Unive rs (VASOTEC) 0-11 10-15 Oral, BID, ity of tablet 20 16:00: 21:09 First dose [place] mg 00 :41 on [facility] 06/21/22 Branch at 1100, Until Discontinu ed, Routine dextrose 2021-09 Yes 250mL 250 mL, IV Un teo 10% (D10W) 0-11 Infusion, ity of bolus 15:42: PRN - SEE [place] infusion 37 INSTRUCTIO Medic al 250 mL NS, Branch Administer over 60 Minutes, Other, If blood glucose is < or = 70 mg/dL and patient is unable to swallow or has mental status changes, Starting on [facility] 06/21/22 at 1042
If blood glucose [...] KIT) 34 Starting Medical injection 1 on [facility] 06/21/22 at 1042, Until Discontinu ed, YOKO, Blood Glucose < or = 70 mg/dL and patient is unable to swallow or has mental changes. glucagon 2021-09- No 1mg 1 mg, Univers (GLUCAGEN 0-11 10-15 Intramuscu ity of DIAGNOSTIC 15:42: 21:09 lar, PRN, [place] KIT) 34 :41 Starting Medical injection 1 on [facility] mg 06/21/22 at 1042, Until 06/25/22 at 1609, YOKO, Blood Glucose < or = 70 mg/dL and patient is unable to swallow or has mental changes. acetaminoph 2021-09 Yes 650mg 650 mg, Un teo en 0-11 Oral, ity of (TYLENOL) 15:21: Q6HPRN, [place] tablet 650 10 Starting Medic al mg on [facility] Branch 06/21/22 at 1021, Until Discontinu ed, [...] [place] 00 :[place] dose, On Medical [facility] 06/21/22 at 0415, Routine aspirin 2021-09- No [...] Shawn as mg 00 :00 dose, On [facility] 06/20/22 at 2200, Routine cloNIDine 2021-09- No .2mg 0.2 mg, Univ ers (CATAPRES) 006-21 Oral, ity of tablet 0.2 02:15: 02:14 ONCE, 1 [place] mg 00 :00 dose, On [facility] 06/20/22 at 2115, STAT iopamidol 2021-09- No [id number] 150mL 150 mL, Univers (ISOVUE 0-10 10-10 Intravenou ity o f 370-500 mL) 21:15: 21:15 s, ONCE, 1 [place] injection 00 :00 dose, On Medica l 150 mL [facility] 06/20/22 at 1615, Routine acetaminoph 2021-09- No 1000mg 1,000 mg, Univers en 0-10 10-10 Oral, ity of (TYLENOL) 21:00: 20:46 ONCE, 1 [place] tablet 00 :00 dose, On Medical 1,000 mg [facility] 06/20/22 at 1600, YOKO piperacilli 2021-09- No [...] as 1,000 mL 00 :00 IV Medical PigEmil lozoya ONCE, 1 dose, On 06/20/22 at 1430, [...] CALL OFFICE TO MAKE AN APPOINTMEN T insulin 2019- Yes 15U QD [facility]ject [facility] (LANTUS 00:00: subcutaneo Medi joyce SOLOSTAR 00 [facility] Center U-100 nightly. INSULIN) 100 unit/mL (3 mL) InPn insulin 2019-0 Yes 15U QD Inject 15 [facility] (LANTUS 00:00: subcutaneo [facility] SOLOSTAR 00 usly Center U-100 nightly. INSULIN) 100 unit/mL (3 mL) InPn insulin 2020-0 Yes 15U QD Inject 15 [facility]ine 7[facility] (LANTUS 00:00: subcutaneo [facility] SOLOSTAR 00 usly Center U-100 nightly. INSULIN) 100 unit/mL (3 mL) InPn insulin 2019-0 Yes 15U QD Inject 15 [facility]ine 7[facility] (LANTUS 00:00: subcutaneo [facility] SOLOSTAR 00 usly Center U-100 nightly. INSULIN) 100 unit/mL (3 mL) InPn insulin 2019-0 Yes 15U QD Inject 15 [facility] gl[facility]ine 7[facility] (LANTUS 00:00: subcutaneo [facility] SOLOSTAR 00 usly Center U-100 nightly. INSULIN) 100 unit/mL (3 mL) InPn insulin 2019-0 Yes 15U QD Inject 15 [facility]ine 7[facility] (LANTUS 00:00: subcutaneo [facility] SOLOSTAR 00 usly Center U-100 nightly. INSULIN) 100 unit/mL (3 mL) InPn Insulin 2019-0 Yes 15U inject 15 Unive [...] mL) 00 skin. Medical injection Branch insulin 2020-0 Yes 15U QD Inject 15 [facility] gl[facility]ine [facility] (LANTUS 00:00: subcutaneo Medi joyce SOLOSTAR 00 ly Center U-100 nightly. INSULIN) 100 unit/mL (3 mL) InPn Insulin 2019-2022- No 15U inject 15 Univ ers Glargine 7-19 01-26 Units ity of 100 unit/mL 00:00: 00:00 under the [place] (3 mL) 00 :00 skin. Medical injection Branch Insulin 2019-0 2022- No 15U inject 15 Univ ers Glargine 7-19 01-26 Units ity of 100 unit/mL 00:00: 00:00 under the [place] (3 mL) 00 :00 skin. Medical injection Branch memantine 2020- No 5mg Q.5D Take 1 [facility] (NAMENDA) 5 7-19 07-19 tablet (5 Corina kes MG tablet 00:00: 23:59 mg total) Me dical 00 :00 by mouth 2 Center (two) times daily. memantine 2020- No 5mg Q.5D Take 1 [facility] (NAMENDA) 5 7-19 07-19 tablet (5 Corina kes MG tablet 00:00: 23:59 mg total) Me dical 00 :00 by mouth 2 Center (two) times daily. [facility] 10 2020-0 Yes 10mg QD Take [address] [facility] tablet 7-09 by mouth [facility] 00:[facility]: daily. [address] 10 2020-0 Yes 10mg QD Take [address] mg tablet 7-09 by mouth [facility] 00:00: daily. [address] 10 2020-0 Yes 10mg QD Take [address] mg tablet 7-09 by mouth [facility] 00:00: daily. [address] 10 2020-0 Yes 10mg QD Take [address] mg tablet 7-09 by mouth [facility] 00:00: daily. [address] 10 2020-0 Yes 10mg QD Take [address] mg tablet 7-09 by mouth [facility] 00:00: daily. [address] 10 2020-0 Yes 10mg QD Take [address] mg tablet 7-09 by mouth [facility] 00:00: daily. [address] 10 2020-0 Yes 10mg QD Take [address] mg tablet 7-09 by mouth [facility] 00:00: daily. [address] simvastatin 2020-0 Yes 20mg QD Take [address] (ZOCOR) 20 5-13 by mouth [facility] MG tablet 00:00: nightly. [address] tamsulosin 2020-0 Yes .4mg Take 0.[address] (FLOMAX) 5-13 mg by [facility] 0.4 mg Cap 00:00: mouth Medica l 24 hr 00 Daily Center capsule (1800). simvastatin 2020-0 Yes 20mg QD Take [address] (ZOCOR) 20 5-13 by mouth [facility] MG tablet 00:00: nightly. [address] tamsulosin 2020-0 Yes .4mg Take 0.[address] (FLOMAX) 5-13 mg by [facility] 0.4 mg Cap 00:00: mouth Medica l 24 hr 00 Daily Center capsule (1800). simvastatin 2020-0 Yes 20mg QD Take [address] (ZOCOR) 20 5-13 by mouth [facility] MG tablet 00:00: nightly. [address] tamsulosin 2020-0 Yes .4mg Take 0.[address] (FLOMAX) 5-13 mg by [facility] 0.4 mg Cap 00:00: mouth Medica l 24 hr 00 Daily Center capsule (1800). simvastatin 2020-0 Yes 20mg QD Take [address] (ZOCOR) 20 5-13 by mouth [facility] MG tablet 00:00: nightly. [address] tamsulosin 2020-0 Yes .4mg Take 0.[address] (FLOMAX) 5-13 mg by [facility] 0.4 mg Cap 00:00: mouth Medica l 24 hr 00 Daily Center capsule (1800). simvastatin 2020-0 Yes 20mg QD Take [address] (ZOCOR) 20 5-13 by mouth [facility] MG tablet 00:00: nightly. [address] tamsulosin 2020-0 Yes .4mg Take 0.[address] (FLOMAX) 5-13 mg by [facility] 0.4 mg Cap 00:00: mouth Medica l 24 hr 00 Daily Center capsule (1800). simvastatin 2020-0 Yes 20mg QD Take [address] (ZOCOR) 20 5-13 by mouth [facility] MG tablet 00:00: nightly. [address] tamsulosin 2020-0 Yes .4mg Take 0.[address] (FLOMAX) 5-13 mg by [facility] 0.4 mg Cap 00:00: mouth Medica l 24 hr 00 Daily Center capsule (1800). simvastatin 2020-0 Yes 20mg QD Take [address] (ZOCOR) 20 5-13 by mouth [facility] MG tablet 00:00: nightly. [address] tamsulosin 2020-0 Yes .4mg Take 0.[address] (FLOMAX) 5-13 mg by [facility] 0.4 mg Cap 00:00: mouth Medica l 24 hr 00 Daily Center capsule (1800). omeprazole 2020-0 Yes 20mg QD Take [address] (PRILOSEC) 5-04 by mouth [facility] 20 MG 00:00: daily. Medical capsule [address] [place] [address] omeprazole 2020-0 Yes 20mg QD Take [address] (PRILOSEC) 5-04 by mouth [facility] 20 MG 00:00: daily. Medical capsule [address] [place] [address] omeprazole 2020-0 Yes 20mg QD Take [address] (PRILOSEC) 5-04 by mouth [facility] 20 MG 00:00: daily. Medical capsule [address] [place] [address] omeprazole 2020-0 Yes 20mg QD Take [address] (PRILOSEC) 5-04 by mouth [facility] 20 MG 00:00: daily. Medical capsule [address] [place] [address] omeprazole 2020-0 Yes 20mg QD Take [address] (PRILOSEC) 5-04 by mouth [facility] 20 MG 00:00: daily. Medical capsule [address] [place] [address] omeprazole 2020-0 Yes 20mg QD Take [address] (PRILOSEC) 5-04 by mouth [facility] 20 MG 00:00: daily. Medical capsule [address] [place] [address] omeprazole 2019-0 Yes 20mg QD Take [address] (PRILOSEC) 5-04 by mouth [facility] 20 MG 00:00: daily. Medical [address] fLUoxetine 0 Yes 20mg QD Take [address] (PROZAC) 20 8-23 by mouth Luke [facility] MG capsule 00:00: daily. Medic [address] melatonin 3 Yes 3mg QD Take [address] mg Tab 8-23 by mouth [facility] tablet 00:00: nightly. [address] melatonin 3 Yes 3mg QD Take [address] mg Tab 8-23 by mouth [facility] tablet 00:00: nightly. [address] fLUoxetine 0 Yes 20mg QD Take [address] (PROZAC) 20 8-23 by mouth Luke s MG capsule 00:00: daily. Medic al [address] [place] [address] 3 0 Yes 3mg QD Take [address] mg Tab 8-23 by mouth [facility] tablet 00:00: nightly. [address] fLUoxetine 0 Yes 20mg QD Take [address] (PROZAC) 20 8-23 by mouth Luke s MG capsule 00:00: daily. Medic al [address] [place] [address] 3 Yes 3mg QD Take [address] mg Tab 8-23 by mouth [facility] tablet 00:00: nightly. [address] fLUoxetine Yes 20mg QD Take [address] (PROZAC) 20 8-23 by mouth Luke s MG capsule 00:00: daily. [address] 3 Yes 3mg QD Take [address] mg Tab 8-23 by mouth [facility] tablet 00:00: nightly. [address] fLUoxetine Yes 20mg QD Take [address] (PROZAC) 20 8-23 by mouth Luke s MG capsule 00:00: daily. [address] 3 Yes 3mg QD Take [address] mg Tab 8-23 by mouth [facility] tablet 00:00: nightly. [address] fLUoxetine Yes 20mg QD Take [address] (PROZAC) 20 8-23 by mouth Luke s MG capsule 00:00: daily. [address] 3 Yes 3mg QD Take [address] mg Tab 8-23 by mouth [facility] tablet 00:00: nightly. [address] fLUoxetine Yes 20mg QD Take [address] (PROZAC) 20 8-23 by mouth Luke s MG capsule 00:00: daily. [address] bisacodyl Yes 10 mg = 1 Mem oria 10 mg 6-19 supp, VT, l rectal 21:04: Daily, PRN Elyse nn suppository 00 Constipati on, 0 Refill(s) Docusate Yes 100 mg = 1 Mem oria Sodium 100 6-19 cap, PO, l MG Oral 21:04: Q12H, 0 [place] Capsule 00 Refill(s) atorvastati Yes 10 mg = 1 M emoria n 10 mg 6-19 tab, PO, l oral tablet 21:04: Bedtime, 0 [place]ie 00 Refill(s) sennosides, Yes 8.6 mg = 1 Memoria DETENTION 8.6 MG 6-19 tab, PO, l Oral Tablet 21:04: Q12H, 0 Her antonio 00 Refill(s) levofloxaci Yes 500 mg = 1 Memoria n 500 mg 6-19 tab, PO, l oral tablet 21:04: [id number], 0 [place] 00 Refill(s) Humalog No Notes: Memoria 6-18 (Same as: l 16:30: Humalog ) Effie 00 Roll in palms of hands gently; Do not shake `vigorousl y. "Single Patient Use Only " WASTE: F/P - Black; E - Municipal Trash Bin Stable for 28 days at room temperatur e. Expires in days from ____Date Insulin No Notes: Memoria Glargine 6-18 Same as: l 100 UNT/ML 14:00: Lantus) Do H ermann Injectable 00 not hold Solution insulin [Lantus] without contacting prescriber WASTE: F/P - Black; E - Municipal Trash Bin potassium No Notes: Memori a chloride 20 6-17 (Same as: l mEq oral 14:35: K-Dur 20) Herm roxanne tablet, 00 "Do Not extended Crush" For release patients unable to swallow tablet, dissolve in one half glass of water. Allow about 2 minutes for the tablets to disintegra te. Stir before giving to prepare slurry and administer . Please exclude Patient s with feeding tube less than 14 Welsh (Dobhoff, J-tube etc) and pediatric and patients. With food and full glass of water insulin, No Notes: Memoria isophane 6-16 Roll in l 23:02: palms of [place] 00 hands gently; Do not shake vigorously . (Same as: Humulin N) Do not hold insulin without contacting prescriber WASTE: F/P - Black; E - Municipal Trash Bin Stable for 28 days at room temperatur e Expires in days from ____Date Humalog 0 No Notes: Memoria 6-16 (Same as: l 21:30: Humalog ) Austyn 00 Roll in palms of hands gently; Do not shake `vigorousl y. "Single Patient Use Only " WASTE: F/P - Black; E - Municipal Trash Bin Stable for 28 days at room temperatur e. Expires in days from ____Date Insulin, 2018-0 No 4 unit, Memori a Aspart, 6-16 Route: l Human 21:30: SUB-Q, Effie 00 TID-Before Meals, Dosing Weight 81.9, kg, Start date: 02/24/18 16:30:00 CDT, Duration: 30 day, Stop date: 03/26/18 11:30:00 CDT Lasix 2017-0 No Notes: Memoria 6-16 (Same as: l 20:54: Lasix) Effie 00 MEDICATION WASTE Product Size: 40 mg Product Wasted: ___ mg Potassium 2017- No Notes: Memori a Chloride 6-16 (Same as: l 12:00: KCL) Austyn 00 Infuse over 2 hours. Levofloxaci No 500 mg, 1 M emoria n 6-16 tab, l 11:49: Route: PO, Effie 00 Drug form: TAB, [id number], Dosing Weight 81.9, kg, Priority: NOW, Start date: 02/24/18 6:49:00 CDT, Duration: 5 day, Stop date: 02/28/18 6:49:00 CDT, ABX Indication : Urinary Tract Infection potassium 2017-0 No 40 mEq, 2 Mem oria chloride 20 -16 tab, l mEq oral 11:47: Route: PO, Her antonio tablet, 00 Drug form: extended ERTAB, release Q4H, Dosing Weight 81.9, kg, Priority: NOW, Start date: 02/24/18 6:47:00 CDT, Duration: 30 day, Stop date: 03/26/18 4:00:00 CDT Magnesium 2017-0 No Notes: Memori a Sulfate 40 -16 WASTE: F/P l MG/ML 11:47: - Sink; E Effie Injection 00 - Municipal Trash Bin Potassium 2017-0 No Notes: Memori a Chloride 6-16 (Same as: l 07:49: KCL) Infuse over 2 hours. Potassium 2017-0 No Notes: Memori a Chloride 6-16 (Same as: l 07:47: K-Dur 20) Effie 00 "Do Not Crush" For patients unable to swallow tablet, dissolve in one half glass of water. Allow about 2 minutes for the tablets to disintegra te. Stir before giving to prepare slurry and administer . Please exclude Patient s with feeding tube less than 14 Welsh (Dobhoff, J-tube etc) and pediatric and patients. With food and full glass of water potassium No Notes: Memori a phosphate-s 6-16 (Same as: l odium 07:28: Phos-NaK) [place] phosphate 00 Each 1.5 250 mg-280 gm pkt has mg-160 mg 250mg oral powder phosphorou for s. Mix reconstitut w/2.5oz ion water and stir. Potassium No Notes: Memori a Chloride 6-16 (Same as: l 07:28: KCL) Effie 00 Infuse over 2 hours. Magnesium No Notes: Memori a Sulfate -16 WASTE: F/P l 07:28: - Sink; E Austyn 00 - Municipal Trash Bin sodium No 15 mmol, 5 Memor ia phosphate 6-16 mL, Route: l 07:28: IVPB, PRN, Austyn 00 Dosing Weight 81.9, kg, PRN Abnormal Lab Result, For NON-ICU Patients Only., Start date: 02/24/18 2:28:00 CDT, Duration: 30 day, Stop date: 03/26/18 2:27:00 CDT potassium No Notes: Memori a phosphate 6-16 (Same as: l 07:28: K [place] 00 Phosphate. ) 1 mMol phoshate has 1.47 mEq potassium Infuse over 4 hours Calcium No Notes: Memoria Gluconate 6-16 WASTE: F/P l 07:28: - Sink; E [place] 00 - Municipal Trash Bin Magnesium No Notes: Memori a Oxide 6-16 (Same as: l 07:28: Mag-Ox 400) Magnesium oxide [id number] g elemental magnesium Dose=____m g magnesium oxide (___mg elemental magnesium) Bisacodyl No Notes: Memori a 6-15 (Same As: l 14:04: Dulcolax, Effie 00 Bisco-Lax) Levofloxaci No Notes: Do M emoria n 6-15 not give l 14:00: w/antacids Austyn 00 , dairy pdt & minerals Take 1 hr before or 2 hr after dairy products torsemide 2017- No Notes: Memori a 6-15 (Same As: l 14:00: Demadex) POLYETHYLEN No Notes: Dirk reji E GLYCOL 6-15 Dissolve l 3350 13:13: in 8 oz of Austyn water or juice. (Same as: Miralax) niCARdipine No Notes: Dirk reji 40 mg in NS 6-15 Same as: l 200 mL 08:49: Cardene Effie (Titrate.) 00 Concentrat IV 40 mg ion: (0.2 mg /1 ml ) Lasix No Notes: Memoria 6-15 (Same as: l 03:30: Lasix) Levofloxaci No Notes: Dirk reji n 6-13 (Same l 22:09: as:Levaqui n) Ibuprofen No Notes: Memori a 400 MG Oral 6-13 (Same as: l Tablet 21:30: Motrin) "Do Not Crush" Give with food. Bisacodyl No 10 mg, Memori a 6-13 Route: VT, l 14:02: Drug form: SUPP, ONCE, Dosing Weight 81.9, kg, Start date: 02/21/18 9:02:00 CDT, Stop date: 02/21/18 9:02:00 CDT nebivolol No Notes: Memori a 6-13 (same as: l 14:00: Bystolic) Miralax No Notes: Memoria 6-13 Dissolve l 14:00: in 8 oz of water or juice. (Same as: Miralax) piperacilli No Notes: Dirk reji n-tazobacta 6-13 (Same as: l m 13:32: Zosyn) Dosing based on Piperacill in component MEDICATION WASTE Product Size: 4500 mg Product Wasted: ___ mg cefepime No /= 50 Memoria 6-13 ml/min), l 12:00: Start date: 02/21/18 7:00:00 CDT, Duration: 7 day, Stop date: 02/27/18 23:00:00 CDT, ABX Indication : Pneumonia Zosyn No Notes: Memoria 6-13 (Same as: l 11:43: Zosyn) Dosing based on Piperacill in component MEDICATION WASTE Product Size: 4500 mg Product Wasted: ___ mg Insulin No Notes: Memoria Glargine 6-13 Same as: l 100 UNT/ML 11:42: Lantus) Do H ermann Injectable 00 not hold Solution insulin [Lantus] without contacting prescriber WASTE: F/P - Black; E - Municipal Trash Bin Tylenol No 1,000 mg, Memor ia 6-13 Route: PO, l 11:00: Q6H, Austyn 00 Dosing Weight 81.9, kg, Start date: 02/21/18 6:00:00 CDT, Duration: 30 day, Stop date: 03/23/18 0:00:00 CDT Lasix No Notes: Memoria 6-13 (Same as: l 10:02: Lasix) Water 1000 No 457.25 mL, M emoria MG/ML - Rate: 500 l Injectable 09:07: ml/hr, Elyse nn Solution 00 Infuse over: 1 hr, Route: IV, Dosing Weight 81.9 kg, Total Volume: 500, Start date: 02/21/18 4:07:00 CDT, Duration: 30 day, Stop date: 03/23/18 4:06:00 CDT, For IMU and ICU use only. See Order Comments!! , 1.95, m2 sodium No 30 mmol, Memoria phosphate 6-13 10 mL, l 05:41: Route: Effie IVPB, PRN, Dosing Weight 81.9, kg, PRN Abnormal Lab Result, Start date: 02/21/18 0:41:00 CDT, Duration: 30 day, Stop date: 03/23/18 0:40:00 CDT, FOR ICU USE ONLY potassium No Notes: Memori a phosphate 6-13 (Same as: l 05:41: K Phosphate. ) 1 mMol phoshate has 1.47 mEq potassium Infuse over 4 hours Potassium No Notes: Memori a Chloride 02-21 (Same as: l 05:41: Potassium Austyn 00 Chloride) Calcium No Notes: Memoria Carbonate - (Same As: l 500 MG 05:41: Tums) Effie Chewable 00 Calcium Tablet Carbonate 500 mg = 200 mg elemental calcium Dose = mg calcium carbonate ( mg elemental calcium) Magnesium No Notes: Memori a Sulfate 02-21 WASTE: F/P l 05:41: - Sink; E [place]yn 00 - Municipal Trash Bin potassium No Notes: Memori a phosphate-s 02-21 (Same as: l odium 05:41: Phos-NaK) [place]yn phosphate 00 Each 1.5 250 mg-280 gm pkt has mg-160 mg 250mg oral powder phosphorou for s. Mix reconstitut w/2.5oz ion water and stir. Calcium No Notes: Memoria Gluconate 02-21 WASTE: F/P l 05:41: - Sink; E [place] - Municipal Trash Bin Magnesium No Notes: Memori a Oxide 02-21 (Same as: l 05:41: Mag-Ox [place] 00 400) Magnesium oxide 637mj=328w g elemental magnesium Dose=____m g magnesium oxide (___mg elemental magnesium) Nicardipine No Notes: Dirk reji 02-21 Same as: l 05:40: Cardene [place] 00 Concentrat ion: (0.1 mg/ 1 ml) Sodium No 1,000 mL, Memori a Chloride 02-21 Rate: 75 l 0.9% IV 05:40: ml/hr, Effie 1,000 mL 00 Infuse over: 13.3 hr, Route: IV, Dosing Weight 81.9 kg, Total Volume: 1,000, Start date: 02/21/18 0:40:00 CDT, Duration: 30 day, Stop date: 03/23/18 0:39:00 CDT, 1.95, m2 Vancomycin No 2000 mg: Me moria - infuse l 05:00: over 2.5 Austyn 00 hours For adult patients only: Round to nearest 250 mg per Medical Staff approval MEDICATION WASTE Product Size: 1000 mg Product Wasted: ___ mg cefepime No Notes: Memoria 6-13 (Same As: l 05:00: Maxipime) MEDICATION WASTE Product Size: 1000 mg Product Wasted: ___ mg Lisinopril No Notes: Memor ia - (Same as: l 02:00: Prinivil, Zestril) atorvastati No Notes: Dirk reji n 02-21 (Same As: l 02:00: Lipitor) heparin No Notes: Memoria sodium, 02-20 porcine l porcine 21:00: heparin Effie 2500 UNT/ML 00 Injectable Solution Tramadol No 50 mg, 1 Memor ia 02-20 tab, l 19:45: Route: PO, Drug form: TAB, Q6H, Dosing Weight 81.9, kg, PRN Pain Score 4-6, Start date: 02/20/18 14:45:00 CDT, Duration: 30 day, Stop date: 03/22/18 14:44:00 CDT Acetaminoph No Notes: Do M emoria en 02-20 not exceed l 19:42: 4 gm/day. (Same as: Tylenol) Insulin No Notes: Memoria Lispro 02-20 (Same as: l 14:44: Humalog ) Roll in palms of hands gently; Do not shake `vigorousl y. "Single Patient Use Only " WASTE: F/P - Black; E - Municipal Trash Bin Stable for 28 days at room temperatur e. Expires in days from ____Date Glucagon No 1 mg, Memoria 02-20 Route: IM, l 14:44: Drug form: Effie PDR/INJ, PRN, Dosing Weight 81.9, kg, PRN Blood Glucose Results, Start date: 02/20/18 9:44:00 CDT, Duration: 30 day, Stop date: 03/22/18 9:43:00 CDT Dextrose No 25 gm, 50 Dirk reji 50% Syringe 6-12 mL, Route: l 14:44: IVP, Drug Form: INJ, Dosing Weight 81.9, kg, PRN, PRN Blood Glucose Results, Start date: 02/20/18 9:44:00 CDT, Duration: 30 day, Stop date: 03/22/18 9:43:00 CDT Fluoxetine No Notes: Memor ia 6-12 (Same as: l 14:00: Prozac, Sarafem) Zocor No Notes: Memoria 6-12 (Same as: l 02:00: Zocor) Keppra No Notes: Memoria 6-12 (Same l 02:00: as:Keppra) Rocephin No Notes: Memoria 6-11 (Same As: l 22:00: Rocephin). Use with 100 mL NS and infuse over 30 min MEDICATION WASTE Product Size: 2000 mg Product Wasted: ___ mg Ancef No Notes: Memoria 6-11 (Same as l 21:00: Ancef) Isolyte S No Notes: Memori a PH 7.4 6-11 (Same as: l 1,000 mL 19:45: Isolyte S PH 7.4) sugammadex No Route: IV, M emoria (ANES) 611 Drug form: l 14:34: SOLN, ONCE, Stop date: 02/19/18 9:34:00 CDT sugammadex No Notes: Memor ia 6-11 (Same as: l 14:23: Bridion) sugammadex No Notes: Memor ia 6-11 (Same as: l 14:01: Bridion) nebivolol No Notes: Memori a 6-11 (same as: l 14:00: Bystolic) Amlodipine No Notes: Memor ia 6-11 (Same as: l 14:00: Norvasc) Saline No Notes: Memoria Flush 0.9% 6-11 (Same as: l 14:00: BD Effie 00 Posiflush) Docusate No Notes: Memoria 6-11 (Same as: l 14:00: Colace) (Do Not Crush) sennosides, No Notes: Dirk reji DETENTION 02-19 (Same as: l 14:00: Senokot) Levetiracet No Notes: Dirk reji am 02-19 Same as l 14:00: Keppra Mix with 100 mL NS, LR or D5W MEDICATION WASTE Product Size: 500 mg Product Wasted: ___ mg Flomax No Notes: Memoria 6-11 (Same As: l 14:00: Flomax) "Do Not Crush" Protonix No Notes: Memoria 6-11 Tablet l 14:00: should not be chewed or crushed. (Same as: Protonix) ceFAZolin No Route: IV, Me moria (ANES) 02-19 Drug form: l 13:40: INJ, ONCE, Stop date: 02/19/18 8:40:00 CDT fentaNYL No Route: IV, Mem oria (ANES) 02-19 Drug form: l 13:40: INJ, ONCE, Stop date: 02/19/18 8:40:00 CDT phenylephri No Route: IV, Memoria ne (ANES) 02-19 Drug form: l 13:40: INJ, ONCE, Stop date: 02/19/18 8:40:00 CDT rocuronium No Route: IV, M emoria (ANES) 02-19 Drug form: l 13:40: INJ, ONCE, Stop date: 02/19/18 8:40:00 CDT propofol No Route: IV, Mem oria (ANES) 02-19 Drug form: l 13:40: INJ, ONCE, Stop date: 02/19/18 8:40:00 CDT lidocaine No Route: IV, Me moria (ANES) 6-11 Drug form: l 13:40: INJ, ONCE, Effie 00 Stop date: 02/19/18 8:40:00 CDT Sodium 2018-0 No Route: IV, Memor ia Chloride 11 Total l 0.9% IV 13:32: Volume: Effie (ANES) 1000 00 1,000, mL Start date: 02/19/18 8:32:00 CDT, Stop date: 02/19/18 9:32:00 CDT Hydralazine 2018-0 No 10 mg, Dirk reji 6 Route: l 13:29: IVP, Austyn 00 Q20Min, Dosing Weight 81.9, kg, PRN Elevated BP, Start date: 02/19/18 8:29:00 CDT, Duration: 2 doses or times, Stop date: Limited # of times Labetalol 2018-0 No 10 mg, Memori a 6 Route: l 13:29: IVP, Austyn 00 Q5Min, Dosing Weight 81.9, kg, PRN Elevated BP, Start date: 02/19/18 8:29:00 CDT, Duration: 5 doses or times, Stop date: Limited # of times Oxycodone 2018-0 No 5 mg, Memoria 6 Route: PO, l 13:29: Drug form: Effie 00 TAB, Q4H, Dosing Weight 81.9, kg, PRN Pain Score 4-6, Start date: 02/19/18 8:29:00 CDT, Duration: 30 day, Stop date: 03/21/18 8:28:00 CDT Metoprolol 2018-0 No 1 mg, Memori a 6 Route: l 13:29: IVP, Austyn 00 Q5Min, Dosing Weight 81.9, kg, PRN Other -See Comment, Start date: 02/19/18 8:29:00 CDT, Duration: 5 doses or times, Stop date: Limited # of times Acetaminoph 2018-0 No 1,000 mg, M emoria en 6 Route: PO, l 13:29: Drug form: Austyn 00 TAB, ONCE, Dosing Weight 81.9, kg, PRN Pain Score 1-3, Start date: 02/19/18 8:29:00 CDT Fentanyl 2018-0 No 50 Memoria 6-11 microgram, l 13:29: Route: Effie 00 IVP, Q5Min, Dosing Weight 81.9, kg, PRN Pain Score 7-10, Priority: Routine, Start date: 02/19/18 8:29:00 CDT, Duration: 2 doses or times, Stop date: Limited # of times Hydromorpho 2018-0 No 0.5 mg, Mem oria ne 6- Route: l 13:29: IVP, Austyn 00 Q5Min, Dosing Weight 81.9, kg, PRN Pain Score 7-10, Start date: 02/19/18 8:29:00 CDT, Duration: 4 doses or times, Stop date: Limited # of times Ondansetron 2018-0 No 4 mg, Memor ia 02-19 Route: l 13:29: IVP, ONCE, Effie 00 Dosing Weight 81.9, kg, PRN Nausea & Vomiting, Start date: 02/19/18 8:29:00 CDT Naloxone 2018-0 No 0.4 mg, Memori a 02-19 Route: l 13:29: IVP, Austyn Q2MIN, Dosing Weight 81.9, kg, PRN Narcotic Reversal, Start date: 02/19/18 8:29:00 CDT, Duration: 8 doses or times, Stop date: Limited # of times Flumazenil 2018-0 No 0.2 mg, Dirk reji 02-19 Route: l 13:29: IVP, PRN, Austyn 00 Dosing Weight 81.9, kg, PRN Benzodiaze pine Reversal, Initial dose, Start date: 02/19/18 8:29:00 CDT, Duration: 30 day, Stop date: 03/21/18 8:28:00 CDT Sodium 2017-0 No Route: IV, Memor ia Chloride 02-19 Total l 0.9% IV 13:06: Volume: Effie (ANES) 500 00 500, Start mL date: 02/19/18 8:06:00 CDT, Stop date: 02/19/18 9:06:00 CDT propofol 2018-0 No Route: IV, Mem oria (ANES) 10 6 Drug form: l mg 12:55: INJ, Start Austyn 00 date: 02/19/18 7:55:00 CDT, Stop date: 02/19/18 8:55:00 CDT remifentani No Route: IV, Memoria l (ANES) 1 6-11 Drug form: l mg 12:55: INJ, Start Effie date: 02/19/18 7:55:00 CDT, Stop date: 02/19/18 8:55:00 CDT Lactated 0 No Route: IV, Mem oria Ringers 6-11 Total l Injection 12:36: Volume: Leyse nn IV (ANES) 00 1,000, 1000 mL Start date: 02/19/18 7:36:00 CDT, Stop date: 02/19/18 8:36:00 CDT Sodium 2018 No 3 gm, 3 Memoria Chloride 6-11 tab, l 1000 MG 12:30: Route: NJ, Herm roxanne Oral Tablet 00 Drug form: TAB, TID-Before Meals, Dosing Weight 82.8, kg, Start date: 02/19/18 7:30:00 CDT, Duration: 30 day, Stop date: 03/20/18 16:30:00 CDT Hydralazine No Notes: Dirk reji Hydrochlori 6-11 (Same as: l de 100 MG 11:00: Apresoline He ann Oral Tablet ) May interfere w/enteral feedings Take With Food Potassium No Notes: Memori a Chloride 6-11 (Same as: l 11:00: KCL) Infuse over 2 hours. Nicardipine No Notes: Dirk reji 6-11 Same as: l 10:56: Cardene Effie Concentrat ion: (0.1 mg/ 1 ml) Labetalol No 10 mg, 2 Dirk reji 6-11 mL, Route: l 10:44: IVP, Drug Effie form: INJ, Q1H, Dosing Weight 82.8, kg, PRN Hypertensi on, Start date: 02/19/18 5:44:00 CDT, Duration: 30 day, Stop date: 03/21/18 5:43:00 CDT Hydralazine No Notes: Dirk reji 6-11 (Same as: l 10:44: Apresoline Austyn ) Push over 5 minutes potassium 2018-0 No 15 mmol, Dirk reji phosphate 6-11 Route: l 10:44: IVPB, PRN, Effie 00 Dosing Weight 82.8, kg, PRN Abnormal Lab Result, Start date: 02/19/18 5:44:00 CDT, Duration: 30 day, Stop date: 03/21/18 5:43:00 CDT, FOR ICU USE ONLY sodium 2018-0 No 15 mmol, Memoria phosphate 6-11 Route: l 10:44: IVPB, PRN, Austyn 00 Dosing Weight 82.8, kg, PRN Abnormal Lab Result, Start date: 02/19/18 5:44:00 CDT, Duration: 30 day, Stop date: 03/21/18 5:43:00 CDT, FOR ICU USE ONLY Potassium 2018-0 No 20 mEq, Memor ia Chloride 6 Route: PO, l 10:44: Drug form: Effie 00 ERTAB, PRN, Dosing Weight 82.8, kg, PRN Abnormal Lab Result, Start date: 02/19/18 5:44:00 CDT, Duration: 30 day, Stop date: 03/21/18 5:43:00 CDT, FOR ICU USE ONLY Calcium 2018-0 No 1,000 mg, Memor ia Carbonate 6- Route: PO, l 500 MG 10:44: PRN, Austyn Chewable 00 Dosing Tablet Weight 82.8, kg, PRN Abnormal Lab Result, FOR ICU USE ONLY, Start date: 02/19/18 5:44:00 CDT, Duration: 30 day, Stop date: 03/21/18 5:43:00 CDT Calcium 2018-0 No 1 gm, Memoria Gluconate 6-11 Route: l 10:44: IVPB, PRN, Austyn 00 Dosing Weight 82.8, kg, PRN Abnormal Lab Result, Start date: 02/19/18 5:44:00 CDT, Duration: 30 day, Stop date: 03/21/18 5:43:00 CDT, FOR ICU USE ONLY Magnesium 2018-0 No 2 gm, Memoria Sulfate 6-11 Route: l 10:44: IVPB, PRN, Austyn 00 Dosing Weight 82.8, kg, PRN Abnormal Lab Result, Start date: 02/19/18 5:44:00 CDT, Duration: 30 day, Stop date: 03/21/18 5:43:00 CDT, FOR ICU USE ONLY Magnesium 2018- No 800 mg, Memor ia Oxide 6-11 Route: PO, l 10:44: PRN, Austyn 00 Dosing Weight 82.8, kg, PRN Abnormal Lab Result, FOR ICU USE ONLY, Start date: 02/19/18 5:44:00 CDT, Duration: 30 day, Stop date: 03/21/18 5:43:00 CDT potassium 2018 No 2 pkt, Memori a phosphate-s 6-11 Route: PO, l odium 10:44: Dosing Austyn phosphate 00 Weight 250 mg-280 82.8, kg, mg-160 mg PRN, PRN oral powder Abnormal for Lab reconstitut Result, ion FOR ICU USE ONLY, Start date: 02/19/18 5:44:00 CDT, Duration: 30 day, Stop date: 03/21/18 5:43:00 CDT Calcium 2017- No Notes: Memoria Gluconate - WASTE: F/P l 09:36: - Sink; E Austyn 00 - Municipal Trash Bin Calcium No Notes: Memoria Carbonate -11 (Same As: l 500 MG 09:36: Tums) Effie Chewable 00 Calcium Tablet Carbonate 500 mg = 200 mg elemental calcium Dose = mg calcium carbonate ( mg elemental calcium) sodium No 15 mmol, 5 Memor ia phosphate 6-11 mL, Route: l 09:36: IVPB, PRN, Austyn Dosing Weight 82.8, kg, PRN Abnormal Lab Result, Start date: 02/19/18 4:36:00 CDT, Duration: 30 day, Stop date: 03/21/18 4:35:00 CDT, FOR ICU USE ONLY potassium No Notes: Memori a phosphate 6-11 (Same as: l 09:36: K Austyn Phosphate. ) 1 mMol phoshate has 1.47 mEq potassium Infuse over 4 hours Potassium No Notes: Memori a Chloride 6-11 (Same as: l 09:36: Potassium Effie Chloride) potassium No Notes: Memori a phosphate-s 6-11 (Same as: l odium 09:36: Phos-NaK) Austyn phosphate 00 Each 1.5 250 mg-280 gm pkt has mg-160 mg 250mg oral powder phosphorou for s. Mix reconstitut w/2.5oz ion water and stir. Magnesium No Notes: Memori a Sulfate 02-19 WASTE: F/P l 09:36: - Sink; E Effie 00 - Municipal Trash Bin Magnesium No Notes: Memori a Oxide 02-19 (Same as: l 09:36: Mag-Ox Austyn 00 400) Magnesium oxide 460pa=372n g elemental magnesium Dose=____m g magnesium oxide (___mg elemental magnesium) Sodium No 1,000 mL, Memori a Chloride 02-19 1,000 l 0.9% 09:34: ml/hr, Austyn (Bolus) IV 00 Infuse Over: 1 hr, Route: IV, 1,000, Drug form: INJ, ONCE, Priority: STAT, Dosing Weight 82.8 kg, Start date: 02/19/18 4:34:00 CDT, Stop date: 02/19/18 4:34:00 CDT Saline No Notes: Memoria Flush 0.9% 02-19 (Same as: l 09:27: BD Austyn 00 Posiflush) Ondansetron No Notes: Dirk reji 02-19 (Same as: l 09:27: Zofran) MEDICATION WASTE Product Size: 4 mg Product Wasted: ___ mg Bisacodyl No Notes: Memori a 6-11 (Same As: l 09:27: Dulcolax, Austyn Bisco-Lax) Acetaminoph No 1 tab, Dirk reji en 325 MG / 02-19 Route: PO, l Hydrocodone 09:27: Drug Form: Austyn Bitartrate 00 TAB, 5 MG Oral Dosing Tablet Weight 82.8, kg, Q4H, PRN Pain Score 1-3, Start date: 02/19/18 4:27:00 CDT, Duration: 30 day, Stop date: 03/21/18 4:26:00 CDT Acetaminoph No Notes: Do M emoria en 6-11 not exceed l 09:27: 4 gm/day. Austyn 00 (Same as: Tylenol) Acetaminoph 2018- No 1 tab, Dirk reji en 325 MG / 6-11 Route: PO, l Hydrocodone 09:27: Drug Form: Effie Bitartrate 00 TAB, 10 MG Oral Dosing Tablet Weight 82.8, kg, Q4H, PRN Pain Score 4-6, Start date: 02/19/18 4:27:00 CDT, Duration: 30 day, Stop date: 03/21/18 4:26:00 CDT Sodium 2018- No 1,000 mL, Memori a Chloride 6-11 Rate: 50 l 0.9% IV 09:27: ml/hr, Austyn 1,000 mL 00 Infuse over: 20 hr, Route: IV, Dosing Weight 82.8 kg, Total Volume: 1,000, Start date: 02/19/18 4:27:00 CDT, Duration: 30 day, Stop date: 03/21/18 4:26:00 CDT, 1.96, m2 Magnesium 2017- No 2 gm, Memoria Sulfate 6-11 Route: l 09:17: IVPB, Drug Austyn 00 form: INJ, ONCE, Dosing Weight 82.8, kg, Start date: 02/19/18 4:17:00 CDT, Stop date: 02/19/18 4:17:00 CDT Potassium 2017- No Notes: Memori a Chloride 6-11 (Same as: l 1.33 MEQ/ML 09:17: Potassium H ermann Oral 00 Chloride) Solution Saline No Notes: Memoria Flush 0.9% 6-11 (Same as: l 08:15: BD Effie 00 Posiflush) PEPCID 20 Yes prn Univers MG ORAL TAB 6-11 ity of 04:52: [address] B COMPLEX 1 Yes None Univer s ORAL TAB 6-11 Entered ity of 04:52: [address] Branch M-VIT ORAL Yes None Univers 6-11 Entered ity of 04:52: [address] Branch PEPCID 20 Yes prn Univers MG ORAL TAB 6-11 ity of 04:52: [address] B COMPLEX 1 Yes None Univer s ORAL TAB 6-11 Entered ity of 04:52: [address] M-VIT ORAL Yes None Univers 6-11 Entered ity of 04:52: [address] 20 Yes prn Univers MG ORAL TAB 6-11 ity of 04:52: [address] 1 Yes None Univer s ORAL TAB 6-11 Entered ity of 04:52: [address] M-VIT ORAL Yes None Univers 6-11 Entered ity of 04:52: [address] 20 Yes prn Univers MG ORAL TAB 6-11 ity of 04:52: [address] 1 Yes None Univer s ORAL TAB 6-11 Entered ity of 04:52: [address] M-VIT ORAL Yes None Univers 6-11 Entered ity of 04:52: [address] 20 Yes prn Univers MG ORAL TAB 6-10 ity of 23:52: [address] 1 Yes None Univer s ORAL TAB 6-10 Entered ity of 23:52: [address] M-VIT ORAL Yes None Univers 6-10 Entered ity of 23:52: [address] 20 Yes prn Univers MG ORAL TAB 6-10 ity of 23:52: [address] 1 Yes None Univer s ORAL TAB 6-10 Entered ity of 23:52: [address] M-VIT ORAL Yes None Univers 6-10 Entered ity of 23:52: [address] Levetiracet Yes 500 mg = 1 Memoria am 500 MG 6-05 tab, PO, l Oral Tablet 15:03: Q12H, # 1 H ermann 00 tab, 0 Refill(s) Clonidine Yes 0.1 mg = 1 Me moria Hydrochlori 6-05 tab, PO, l de 0.1 MG 15:03: Q8H, 0 Jax n Oral Tablet 00 Refill(s) Acetaminoph Yes 100.4 F, M emoria en 6-05 0 l 15:03: Refill(s) Austyn 00 nebivolol 5 Yes 30 mg = 6 M emoria mg oral 6-05 tab, PO, l tablet 15:03: Daily, 0 Austyn 00 Refill(s) lisinopril Yes 20 mg = 1 Me moria 20 mg oral 6-05 tab, PO, l tablet 15:03: Q12H, 0 Austyn 00 Refill(s) Insulin Yes 25 unit, Memori a Glargine 6-05 SUB-Q, l 100 UNT/ML 15:03: Bedtime, 0 H ermann Injectable Refill(s) Solution [Lantus] amLODIPine Yes 10 mg = 1 Me moria 10 mg oral 6-05 tab, PO, l tablet 15:03: Daily, 0 Effie Refill(s) Potassium No Notes: Memori a Chloride 6-05 (Same as: l 14:56: K-Dur 20) Effie 00 "Do Not Crush" For patients unable to swallow tablet, dissolve in one half glass of water. Allow about 2 minutes for the tablets to disintegra te. Stir before giving to prepare slurry and administer . Please exclude Patient s with feeding tube less than 14 [place] (Dobhoff, J-tube etc) and pediatric and patients. With food and full glass of water Potassium No Notes: Memori a Chloride 6-04 (Same as: l 16:00: K-Dur 20) Effie 00 "Do Not Crush" For patients unable to swallow tablet, dissolve in one half glass of water. Allow about 2 minutes for the tablets to disintegra te. Stir before giving to prepare slurry and administer . Please exclude Patient s with feeding tube less than 14 [place] (Dobhoff, J-tube etc) and pediatric and patients. With food and full glass of water Norvasc No Notes: Memoria 6-04 (Same as: l 14:00: Norvasc) Austyn 00 potassium No Notes: Memori a chloride 20 6-04 (Same as: l mEq oral 12:37: K-Dur 20) Herm roxanne tablet, 00 "Do Not extended Crush" For release patients unable to swallow tablet, dissolve in one half glass of water. Allow about 2 minutes for the tablets to disintegra te. Stir before giving to prepare slurry and administer . Please exclude Patient s with feeding tube less than 14 [place] (Dobhoff, J-tube etc) and pediatric and patients. With food and full glass of water Clonidine 2017-0 No Notes: Memori a 02-11 (Same As: l 21:00: Catapres) Sodium 2017-0 Yes 3 gm = 3 Memoria Chloride - tab, NJ, l 1000 MG 18:08: TID-Before Herm roxanne Oral Tablet 00 Meals, # 63 tab, 0 Refill(s) Hydralazine 2017-0 Yes PO, Q6H, 0 Memoria Hydrochlori 02-11 Refill(s) l de 100 MG 18:08: Austyn Oral Tablet amLODIPine No 5 mg = 1 Mem oria 5 mg oral - tab, PO, l tablet 18:08: Q12H, 0 Refill(s) Insulin No 60 units) Dirk reji regular 02-10 WASTE: F/P l 23:44: - Black; [facility] St[facility] 28 days at room temperatur e Expires in days from ____Date Glucagon 2017-0 No 1 mg, Memoria 02-10 Route: IM, l 23:44: Drug form: Austyn 00 PDR/INJ, PRN, Dosing Weight 82.8, kg, PRN Blood Glucose Results, Start date: 02/10/18 18:44:00 CDT, Duration: 30 day, Stop date: 03/12/18 18:43:00 CDT Dextrose 2017-0 No 25 gm, 50 Dirk reji 50% Syringe 02-10 mL, Route: l 23:44: IVP, Drug Form: INJ, Dosing Weight 82.8, kg, PRN, PRN Blood Glucose Results, Start date: 02/10/18 18:44:00 CDT, Duration: 30 day, Stop date: 03/12/18 18:43:00 CDT Sodium 2018-0 No 3 gm, 3 Memoria Chloride - tab, l 1000 MG 12:30: Route: NJ, Herm roxanne Oral Tablet Drug form: TAB, TID-Before Meals, Dosing Weight 82.8, kg, Start date: 02/10/18 7:30:00 CDT, Duration: 30 day, Stop date: 03/11/18 16:30:00 CDT Potassium No Notes: Memori a Chloride 6-01 (Same as: l 1.33 MEQ/ML 23:56: Potassium H ermann Oral 00 Chloride) Solution Hydralazine No Notes: Dirk reji Hydrochlori 6-01 (Same as: l de 50 MG 23:00: Apresoline Her antonio Oral Tablet 00 ) May interfere w/enteral feedings Take With Food. Hydralazine No 100 mg, Mem oria Hydrochlori 6-01 Route: PO, l de 50 MG 21:00: Drug form: Her antonio Oral Tablet 00 TAB, Q8H, Dosing Weight 82.8, kg, Start date: 02/09/18 16:00:00 CDT, Duration: 30 day, Stop date: 03/11/18 8:00:00 CDT Tylenol No Notes: Max Dirk reji 6-01 acetaminop l 18:34: hen = Effie 00 4000mg/day (4 gm/day). (Same as: Tylenol) hydrALAZINE No Notes: Dirk reji 6-01 (Same as: l 13:19: Apresoline Effie 00 ) May interfere w/enteral feedings Take With Food. Potassium No Notes: Memori a Chloride 6-01 (Same as: l 1.33 MEQ/ML 09:41: Potassium H ermann Oral 00 Chloride) Solution Hydralazine No Notes: Dirk reji Hydrochlori 5-31 (Same as: l de 50 MG 20:29: Apresoline Her antonio Oral Tablet 00 ) May interfere w/enteral feedings Take With Food. Norvasc No Notes: Memoria 5-31 (Same as: l 18:18: Norvasc) Effie 00 heparin No Notes: Memoria sodium, 5-31 porcine l porcine 14:00: heparin Austyn 2500 UNT/ML 00 Injectable Solution Lisinopril No Notes: Memor ia 5-31 (Same as: l 14:00: Prinivil, Austyn 00 Zestril) Bystolic No Notes: Memoria 5-31 (same as: l 14:00: Bystolic) Austyn 00 Nicardipine No Notes: Dirk reji 5-31 Same as: l 08:09: Cardene Concentrat ion: (0.1 mg/ 1 ml) nebivolol No 10 mg = 1 Mem oria 10 MG Oral 5-31 tab, PO, l Tablet 03:55: Daily, # Austyn [] 00 30 tab, 0 Refill(s) Bystolic No PO, Daily, Mem oria 5-31 0 l 03:55: Refill(s) Coreg No Notes: Memoria 5-30 Give with l 22:53: food. (Same As: Coreg) Lisinopril No Notes: Memor ia -30 (Same as: l 13:59: Prinivil, Zestril) Insulin No Notes: Memoria Glargine 5-30 Same as: l 100 UNT/ML 13:58: Lantus) Do H erm Injectable not hold Solution insulin [Lantus] without contacting prescriber WASTE: F/P - Black; E - Municipal Trash Bin Insulin No 60 units) Dirk reji regular -30 WASTE: F/P l 13:57: - Black; E - Municipal Trash Bin Stable for 28 days at room temperatur e Expires in days from ____Date Dextrose No 25 gm, 50 Dirk reji 50% Syringe 5-30 mL, Route: l 13:57: IVP, Drug Form: INJ, Dosing Weight 82.8, kg, PRN, PRN Blood Glucose Results, Start date: 02/07/18 8:57:00 CDT, Duration: 30 day, Stop date: 03/09/18 8:56:00 CDT Glucagon No 1 mg, Memoria 30 Route: IM, l 13:57: Drug form: PDR/INJ, PRN, Dosing Weight 82.8, kg, PRN Blood Glucose Results, Start date: 02/07/18 8:57:00 CDT, Duration: 30 day, Stop date: 03/09/18 8:56:00 CDT heparin No Notes: Memoria sodium, 5-30 porcine l porcine 13:00: heparin Effie 2500 UNT/ML 00 Injectable Solution Insulin No Notes: Memoria Glargine 5-30 Same as: l 100 UNT/ML 02:00: Lantus) Do H ermann Injectable 00 not hold Solution insulin [Lantus] without contacting prescriber WASTE: F/P - Black; E - Municipal Trash Bin Zocor No Notes: Memoria 5-30 (Same as: l 02:00: Zocor) Austyn 00 Melatonin 3 No Notes: Dirk reji MG Extended 5-30 (Same as: l Release 02:00: Melatonin) Herm roxanne Tablet 00 Levetiracet No Notes: Dirk reji am 5-29 (Same l 23:00: as:Keppra) Effie Sodium No 3 gm, 3 Memoria Chloride 5-29 tab, l 1000 MG 18:00: Route: NJ, Herm roxanne Oral Tablet 00 Drug form: TAB, QID, Dosing Weight 82.8, kg, Start date: 02/06/18 13:00:00 CDT, Duration: 30 day, Stop date: 03/08/18 9:00:00 CDT acetaminoph No Notes: Max Memoria en 5-29 acetaminop l 14:48: hen = Effie 00 4000mg/day (4 gm/day). (Same as: Tylenol) Bystolic No Notes: Memoria 5-29 (same as: l 14:00: Bystolic) Austyn Protonix No Notes: Memoria 5-29 Tablet l 14:00: should not Austyn be chewed or crushed. (Same as: Protonix) Flomax No Notes: Memoria 5-29 (Same As: l 14:00: Flomax) Effie "Do Not Crush" Tylenol No 100.4 F, Memor ia 5-29 Start l 13:18: date: Effie 00 02/06/18 8:18:00 CDT, Duration: 30 day, Stop date: 03/08/18 8:17:00 CDT Keppra No Notes: Memoria 5-29 Same as l 11:00: Keppra Mix Effie 00 with 100 mL NS, LR or D5W MEDICATION WASTE Product Size: 500 mg Product Wasted: ___ mg lisinopril No 40 mg = 1 Me moria 40 mg oral 5-29 tab, PO, l tablet 03:54: Daily Austyn 00 Fluoxetine Yes 20 mg = 1 Me moria 20 MG Oral 5-29 cap, PO, l Capsule 03:54: Daily Austyn [Prozac] 00 gabapentin Yes 300 mg = 1 M emoria 300 MG Oral 5-29 cap, PO, l Capsule 03:54: TID Effie 00 amitriptyli No 100 mg = 1 Memoria ne 100 mg 5-29 tab, PO, l oral tablet 03:54: Bedtime Her antonio 00 pantoprazol Yes 40 mg = 2 M emoria e 20 MG 5-29 tab, PO, l Enteric 03:54: Daily Austyn Coated 00 Tablet [Protonix] clopidogrel No 75 mg = 1 M emoria 75 MG Oral 5-29 tab, PO, l Tablet 03:54: Daily Austyn [Plavix] 00 Metformin Yes 500 mg = 1 Me moria hydrochlori 5-29 tab, PO, l de 500 MG 03:54: BID-Meals Her antonio Oral Tablet Simvastatin Yes 20 mg = 1 M emoria 20 MG Oral 5-29 tab, PO, l Tablet 03:54: Bedtime Effie [Zocor] nebivolol No 10 mg = 1 Mem oria 10 MG Oral 5-29 tab, PO, l Tablet 03:54: Daily Effie [Bystolic] 00 Tamsulosin Yes 0.4 mg = 1 M emoria hydrochlori 5-29 cap, PO, l de 0.4 MG 03:54: Daily Austyn Oral 00 Capsule [Flomax] Omeprazole Yes 20 mg = 1 Me moria 20 MG 5-29 cap, PO, l Enteric 03:54: Daily Austyn Coated 00 Capsule [Prilosec] Insulin No 20 unit, Memori a Glargine 5-29 SUB-Q, l 100 UNT/ML 03:54: Bedtime Herm roxanne Injectable 00 Solution [Lantus] Saline No Notes: Memoria Flush 0.9% 5-29 (Same as: l 02:00: BD Austyn Posiflush) Docusate No Notes: Memoria 5-29 (Same as: l 02:00: Colace) Effie sennosides, No Notes: Dirk reji DETENTION 5-29 (Same as: l 02:00: Senokot) Austyn Tylenol No Notes: Do Memor ia 5-29 not exceed l 01:30: 4 gm/day. Effie (Same as: Tylenol) Labetalol No 10 mg, 2 Dirk reji 5-29 mL, Route: l 01:30: IVP, Drug form: INJ, Q1H, Dosing Weight 80, kg, PRN Hypertensi on, Start date: 02/05/18 20:30:00 CDT, Duration: 30 day, Stop date: 03/07/18 20:29:00 CDT Hydralazine No Notes: Dirk reji 5-29 (Same as: l 01:30: Apresoline ) Push over 5 minutes Calcium No Notes: Memoria Carbonate - (Same As: l 500 MG 01:25: Tums) Chewable 00 Calcium Tablet Carbonate 500 mg = 200 mg elemental calcium Dose = mg calcium carbonate ( mg elemental calcium) Magnesium No Notes: Memori a Oxide - (Same as: l 01:25: Mag-Ox Effie 00 400) Magnesium oxide [id number] g elemental magnesium Dose=____m g magnesium oxide (___mg elemental magnesium) Calcium No Notes: Memoria Gluconate 02-06 WASTE: F/P l 01:25: - Sink; E - Municipal Trash Bin Magnesium No Notes: [facility] a Sulfate 02-06 WASTE: F/P l 01:25: - Sink; E - Municipal Trash Bin Potassium No Notes: [facility] Chloride - (Same as: l 01:25: KCL) Austyn 00 Infuse no faster than 10 mEq/hr if given peripheral ly. potassium No Notes: [facility] a phosphate-s 5-29 (Same as: l odium 01:25: Phos-NaK) [place]ie phosphate 00 Each 1.5 250 mg-280 gm pkt has mg-160 mg 250mg oral powder phosphorou for s. Mix reconstitut w/2.5oz ion water and stir. potassium No Notes: [facility] a phosphate 5-29 (Same as: l 01:25: K Phosphate. ) 1 mMol phoshate has 1.47 mEq potassium Infuse over 4 hours sodium 2017- No 30 mmol, [facility] phosphate 5-29 10 mL, l 01:25: Route: Effie 00 IVPB, PRN, Dosing Weight 80, kg, PRN Abnormal Lab Result, Start date: 02/05/18 20:25:00 CDT, Duration: 30 day, Stop date: 03/07/18 20:24:00 CDT, FOR ICU USE ONLY Sodium No 1,000 mL, [facility] a Chloride 5-29 1,000 l 0.9% 01:21: ml/hr, Austyn (Bolus) IV 00 Infuse Over: 1 hr, Route: IV, 1,000, Drug form: INJ, ONCE, Priority: STAT, Dosing Weight 80 kg, Start date: 02/05/18 20:21:00 CDT, Stop date: 02/05/18 20:21:00 CDT Sodium No 1,000 mL, [facility] a Chloride 5-29 Rate: 50 l 0.9% IV 01:21: ml/hr, Effie 1,000 mL 00 Infuse over: 20 hr, Route: IV, Dosing Weight 82.8 kg, Total Volume: 1,000, Start date: 02/05/18 20:21:00 CDT, Stop date: 03/07/18 20:20:00 CDT Lorazepam No Notes: Memori a 5-29 (Same as: l 00:29: Ativan) Ativan No Notes: Memoria 5-28 (Same as: l 23:56: Ativan) Ativan No 1 mg, Memoria 5-28 Route: l 23:48: IVP, Drug form: INJ, ONCE, Dosing Weight 80, kg, PRN Anxiety, Start date: 02/05/18 18:48:00 CDT Dextrose No 6.25 gm, Memor ia 50% Syringe 02-05 12.5 mL, l 23:05: Route: Effie 00 IVP, Drug Form: INJ, Dosing Weight 80, kg, PRN, PRN Abnormal Lab Result, Start date: 02/05/18 18:05:00 CDT, Duration: 30 day, Stop date: 03/07/18 18:04:00 CDT Regular No 60 units) Dirk reji Insulin, 02-05 WASTE: F/P l Human 100 23:05: - Black; E He rmann UNT/ML 00 - Injectable Municipal Solution Trash Bin Stable for 28 days at room temperatur e Expires in days from ____Date Saline No Notes: [facility]oria Flush 0.9% -28 (Same as: l 23:05: BD Austyn 00 Posiflush) Sodium No 10,000 mL, [facility] ia Chloride 02-05 Rate: 50 l 0.9% IV 23:05: ml/hr, Effie 86988 mL 00 Infuse over: 200 hr, Route: IV, Dosing Weight 80 kg, Total Volume: 10,000, Start date: 02/05/18 18:05:00 CDT, Duration: 30 day, Stop date: 03/07/18 18:04:00 CDT Acetaminoph No Notes: Do M emoria en 325 MG / -28 not exceed l Hydrocodone 23:05: 4gm/day of Effie Bitartrate 00 acetaminop 10 MG Oral hen. (Same Tablet as: [place] 325/10) Acetaminoph No Notes: Dirk reji en 325 MG / -28 (Same as: l Hydrocodone 23:05: [place] Elyse nn Bitartrate 00 325/5) Do 5 MG Oral not exceed Tablet 4gm/day of acetaminop hen. Morphine No Notes: Memoria 5-28 (Same l 23:05: as:MORPhin Effie 00 e Sulfate) Bisacodyl No Notes: Memori a 5-28 (Same As: l 23:05: Dulcolax, Austyn 00 Bisco-Lax) Keppra No Notes: Memoria 02-05 Same as l 22:43: Keppra Mix Effie 00 with 100 mL NS, LR or D5W MEDICATION WASTE Product Size: 500 mg Product Wasted: ___ mg Cardene 40 No Notes: Memor ia mg in NS 02-05 Same as: l 200 mL 22:37: Cardene Effie (Titrate.) 00 Concentrat IV 20 mg ion: (0.1 mg/ 1 ml) lisinopriL 2014-09 Yes 40mg Take [address] (PRINIVIL,Z 2-21 by mouth Luke s ESTRIL) 40 00:00: Daily Medica l MG tablet 00 (1800). [place] lisinopriL 2014-09 Yes 40mg Take [address] (PRINIVIL,Z 2-21 by mouth Luke s ESTRIL) 40 00:00: Daily Medica l MG tablet 00 (1800). [place] lisinopriL 2014-09 Yes 40mg Take [address] (PRINIVIL,Z 2-21 by mouth Luke s ESTRIL) 40 00:00: Daily Medica l MG tablet 00 (1800). [place] lisinopriL 2014-09 Yes 40mg Take [address] (PRINIVIL,Z 2-21 by mouth Luke s ESTRIL) 40 00:00: Daily Medica l MG tablet 00 (1800). [place] lisinopriL 2014-09 Yes 40mg Take [address] (PRINIVIL,Z 2-21 by mouth Luke s ESTRIL) 40 00:00: Daily Medica l MG tablet 00 (1800). [place] lisinopriL 2014-09 Yes 40mg Take [address] (PRINIVIL,Z 2-21 by mouth Luke s ESTRIL) 40 00:00: Daily Medica l MG tablet 00 (1800). [place] lisinopriL 2014-09 Yes 40mg Take [address] (PRINIVIL,Z 2-21 by mouth Luke s ESTRIL) 40 00:00: Daily Medica l MG tablet 00 (1800). [place] PROTONIX 40 2009-0 Yes [id number] 1 tab PO Univers MG ORAL 4-01 daily ity of TBEC 00:00: [place] 00 [facility] PROTONIX 40 2009-0 Yes [id number] 1 tab PO Univers MG ORAL 4-01 daily ity of TBEC 00:00: [place] 00 [facility] PROTONIX 40 2008-0 Yes [id number] 1 tab PO Univers MG ORAL 4-01 daily ity of TBEC 00:00: [place] 00 [facility] PROTONIX 40 2008-0 Yes [id number] 1 tab PO Univers MG ORAL 4-01 daily ity of TBEC 00:00: [place] 00 [facility] PROTONIX 40 2008-0 Yes [id number] 1 tab PO Univers MG ORAL 4-01 daily ity of TBEC 00:00: [place] 00 [facility] PROTONIX 40 2008-0 Yes [id number] 1 tab PO Univers MG ORAL 4-01 daily ity of TBEC 00:00: [place] 00 [facility] PROTONIX 40 2008-0 2022- No [id number] 1 tab PO Univers MG ORAL 4-01 10-15 daily ity of TBEC 00:00: 00:00 [place] 00 :00 [facility] PROTONIX 40 2008-0 2022- No [id number] 1 tab PO Univers MG ORAL 4-01 10-15 daily ity of TBEC 00:00: 00:00 [place] 00 :00 [facility] ENALAPRIL 2009-0 Yes [id number] 1 tab po Univers MALEATE 20 1-15 BID ity of MG ORAL TAB 00:00: [place] 00 [facility] ENALAPRIL 2009-0 Yes [id number] 1 tab po Univers MALEATE 20 1-15 BID ity of MG ORAL TAB 00:00: [place] 00 [facility] ENALAPRIL 2009-0 Yes [id number] 1 tab po Univers MALEATE 20 1-15 BID ity of MG ORAL TAB 00:00: [place] 00 [facility] ENALAPRIL 2009-0 Yes [id number] 1 tab po Univers MALEATE 20 1-15 BID ity of MG ORAL TAB 00:00: [place] 00 [facility] ENALAPRIL 2009-0 Yes [id number] 1 tab po Univers MALEATE 20 1-15 BID ity of MG ORAL TAB 00:00: [place] 00 [facility] ENALAPRIL 2009-0 Yes [id number] 1 tab po Univers MALEATE 20 1-15 BID ity of MG ORAL TAB 00:00: [place] 00 [facility] ENALAPRIL 2008-2021- No [id number] 1 tab po Univers MALEATE 20 1-15 10-15 BID ity of MG ORAL TAB 00:00: 00:00 [place] 00 :00 [facility] ENALAPRIL 2008-2021- No [id number] 1 tab po Univers MALEATE 20 1-15 10-15 BID ity of MG ORAL TAB 00:00: 00:00 [place] 00 :00 [facility] HYDROCHLORO 2007-09 Yes [id number] take 1 po Univers THIAZIDE 25 0-30 daily ity of MG ORAL TAB 00:00: [place] 00 [facility] HYDROCHLORO 2007-09 Yes [id number] take 1 po [facility] THIAZIDE 25 0-30 daily ity of MG ORAL TAB 00:00: [place] 00 [facility] HYDROCHLORO 2007- Yes [id number] take 1 po [facility] THIAZIDE 25 0-30 daily ity of MG ORAL TAB 00:00: [place] 00 [facility] HYDROCHLORO 2007- Yes [id number] take 1 po [facility] THIAZIDE 25 0-30 daily ity of MG ORAL TAB 00:00: [place] 00 [facility] HYDROCHLORO 2007- Yes [id number] take 1 po [facility] THIAZIDE 25 0-30 daily ity of MG ORAL TAB 00:00: [place] 00 [facility] HYDROCHLORO 2007- Yes [id number] take 1 po [facility] THIAZIDE 25 0-30 daily ity of MG ORAL TAB 00:00: [place] 00 [facility] HYDROCHLORO 2007- 2022- No [id number] take 1 po [facility] THIAZIDE 25 0-30 10-15 daily ity of MG ORAL TAB 00:00: 00:00 [place] 00 :00 [facility] HYDROCHLORO 2007- 202- No [id number] take 1 po [facility] THIAZIDE 25 0-30 10-15 daily ity of MG ORAL TAB 00:00: 00:00 [place] 00 :00 [facility] GLIPIZIDE 5 Yes tske 2 tab [facility] MG ORAL TAB 9 qam and 1 ity of 00:00: tab qpm [place] 00 [facility] GLIPIZIDE 5 Yes tske 2 tab [facility] MG ORAL TAB 9- qam and 1 ity of 00:00: tab qpm 00 [facility] GLIPIZIDE 5 Yes tske 2 tab [facility] MG ORAL TAB - qam and 1 ity of 00:00: tab [...] tske 2 tab [facility] MG ORAL TAB 05-2015 qam and 1 it y of 00:00: 00:00 tab qpm [place] 00 : [facility] GLIPIZIDE 5 2021- No tske 2 tab [facility] MG ORAL TAB 05-20- qam and 1 it y of 00:00: 00:00 tab qpm [place] 00 :00 [facility] ATENOLOL Yes [id number] one tab po [facility] 100 MG ORAL 8-27 daily ity of TAB 00:00: [facility] NORCO Yes 1 tab po Univers 7.5-325 MG 8-27 TID ity of ORAL TAB 00:00: [facility] AMITRIPTYLI Yes 2 tabs QHS Univers NE 50 MG 8-27 ity of ORAL TAB 00:00: [facility] METFORMIN Yes [id number] 1 tab PO [facility] 850 MG ORAL 8-27 TID ity of TAB 00:00: [facility] CLONIDINE Yes [id number] take 1 po [facility] 0.2 MG ORAL 8-27 qid for 1 ity of TAB 00:00: week, then 00 tid for 1 Medical week, then Branch bid and prn thereafter PRAVASTATIN Yes [id number] take 1 po [facility] 40 MG ORAL 8-27 qhs ity of TAB 00:00: [facility] ATENOLOL Yes [id number] one tab po [facility] 100 MG ORAL 8-27 daily ity of TAB 00:00: [facility] NORCO Yes 1 tab po Univers 7.5-325 MG 8-27 TID ity of ORAL TAB 00:00: [facility] AMITRIPTYLI Yes 2 tabs QHS Univers NE 50 MG 8-27 ity of ORAL TAB 00:00: [place] [facility] METFORMIN 2007- Yes [id number] 1 tab PO [facility] 850 MG ORAL 8-27 TID ity of TAB 00:00: [place] [facility] CLONIDINE 2007- Yes [id number] take 1 po [facility] 0.2 MG ORAL 8-27 qid for 1 ity of TAB 00:00: week, then [place] 00 tid for 1 Medical week, then Branch bid and prn thereafter PRAVASTATIN Yes [id number] take 1 po [facility] 40 MG ORAL 8-27 qhs ity of TAB 00:00: [place] [facility] ATENOLOL Yes [id number] one tab po [facility] 100 MG ORAL 8-27 daily ity of TAB 00:00: [place] [facility] NORCO Yes 1 tab po Univers 7.5-325 MG 8-27 TID ity of ORAL TAB 00:00: [place] [facility] AMITRIPTYLI Yes 2 tabs QHS Univers NE 50 MG 8-27 ity of ORAL TAB 00:00: [place] [facility] METFORMIN 2007- Yes [id number] 1 tab PO [facility] 850 MG ORAL 8-27 TID ity of TAB 00:00: [place] [facility] CLONIDINE 2007- Yes [id number] take 1 po [facility] 0.2 MG ORAL 8-27 qid for 1 ity of TAB 00:00: week, then [place] 00 tid for 1 Medical week, then Branch bid and prn thereafter PRAVASTATIN Yes [id number] take 1 po [facility] 40 MG ORAL 8-27 qhs ity of TAB 00:00: [place] [facility] ATENOLOL Yes [id number] one tab po [facility] 100 MG ORAL 8-27 daily ity of TAB 00:00: [place] [facility] NORCO Yes 1 tab po Univers 7.5-325 MG 8-27 TID ity of ORAL TAB 00:00: [place] [facility] AMITRIPTYLI Yes 2 tabs QHS Univers NE 50 MG 8-27 ity of ORAL TAB 00:00: [place] [facility] METFORMIN 2007- Yes [id number] 1 tab PO [facility] 850 MG ORAL 8-27 TID ity of TAB 00:00: [place] [facility] CLONIDINE Yes [id number] take 1 po [facility] 0.2 MG ORAL 8-27 qid for 1 ity of TAB 00:00: week, then [place] 00 tid for 1 Medical week, then Branch bid and prn thereafter PRAVASTATIN Yes [id number] take 1 po [facility] 40 MG ORAL 8-27 qhs ity of TAB 00:00: [facility] ATENOLOL Yes [id number] one tab po [facility] 100 MG ORAL 8-27 daily ity of TAB 00:00: [place] [facility] NORCO Yes 1 tab po Univers 7.5-325 MG 8-27 TID ity of ORAL TAB 00:00: [facility] AMITRIPTYLI Yes 2 tabs QHS Univers NE 50 MG 8-27 ity of ORAL TAB 00:00: [facility] METFORMIN Yes [id number] 1 tab PO [facility] 850 MG ORAL 8-27 TID ity of TAB 00:00: [facility] CLONIDINE Yes [id number] take 1 po Univers 0.2 MG ORAL 8-27 qid for 1 ity of TAB 00:00: week, then [place] 00 tid for 1 Medical week, then Branch bid and prn thereafter PRAVASTATIN Yes [id number] take 1 po [facility] 40 MG ORAL 8-27 qhs ity of TAB 00:00: [facility] ATENOLOL Yes [id number] one tab po [facility] 100 MG ORAL 8-27 daily ity of TAB 00:00: [facility] NORCO Yes 1 tab po Univers 7.5-325 MG 8-27 TID ity of ORAL TAB 00:00: [place] [facility] AMITRIPTYLI Yes 2 tabs QHS Univers NE 50 MG 8-27 ity of ORAL TAB 00:00: [facility] METFORMIN Yes [id number] 1 tab PO Univers 850 MG ORAL 8-27 TID ity of TAB 00:00: [facility] CLONIDINE Yes [id number] take 1 po Univers 0.2 MG ORAL 8-27 qid for 1 ity of TAB 00:00: week, then [place] 00 tid for 1 Medical week, then Branch bid and prn thereafter PRAVASTATIN Yes [id number] take 1 po [facility] 40 MG ORAL 8-27 qhs ity of TAB 00:00: [place] 00 [facility] ATENOLOL 2021- No [id number] one tab po [facility] 100 MG ORAL [...] 00 :00 [facility] METFORMIN 2007-2021- No [id number] 1 tab PO [facility] 850 MG ORAL 8-27 10-15 TID ity of TAB 00:00: 00:00 [place] 00 :00 [facility] CLONIDINE 2021- No [id number] take 1 po Univers 0.2 MG ORAL 8-27 10-15 qid for 1 it y of TAB 00:00: 00:00 week, then [place] 00 :00 tid for 1 Medical week, then Branch bid and prn thereafter PRAVASTATIN 2021- No [id number] take 1 po [facility] 40 MG ORAL 8-27 10-15 qhs ity of TAB 00:00: 00:00 [place] 00 :00 [facility] ATENOLOL 2021- No [id number] one tab po [facility] 100 MG ORAL [...] 00 :00 [facility] METFORMIN 2007-2021- No [id number] 1 tab PO Univers 850 MG ORAL 8-27 10-15 TID ity of TAB 00:00: 00:00 [place] 00 :00 [facility] CLONIDINE 2021- No [id number] take 1 po Univers 0.2 MG ORAL 8-27 10-15 qid for 1 it y of TAB 00:00: 00:00 week, then [place] 00 :00 tid for 1 Medical week, then Branch bid and prn thereafter PRAVASTATIN 2007-0 2021- No [id number] take 1 po [facility] 40 MG ORAL 8-27 10-15 qhs ity of TAB 00:00: 00:00 [place] 00 :00 [facility] CLONIDINE 2007-0 Yes [id number] 1 tab tid Univers 0.3 MG ORAL 4-30 and prn ity o f TAB 00:00: [place] 00 [facility] CLONIDINE 2007-0 Yes [id number] 1 tab tid Univers 0.3 MG ORAL 4-30 and prn ity o f TAB 00:00: [place] [facility] CLONIDINE 2007-0 Yes [id number] 1 tab tid Univers 0.3 MG ORAL 4-30 and prn ity o f TAB 00:00: [place] 00 [facility] CLONIDINE 2007-0 Yes [id number] 1 tab tid Univers 0.3 MG ORAL 4-30 and prn ity o f TAB 00:00: [place] 00 [facility] CLONIDINE 2007-0 Yes [id number] 1 tab tid Univers 0.3 MG ORAL 4-30 and prn ity o f TAB 00:00: [place] 00 [facility] CLONIDINE 2007-0 Yes [id number] 1 tab tid Univers 0.3 MG ORAL 4-30 and prn ity o f TAB 00:00: [place] 00 [facility] CLONIDINE 2007-0 2021- No [id number] 1 tab tid Univers 0.3 MG ORAL 4-30 10-15 and prn ity of TAB 00:00: 00:00 [place] 00 :00 [facility] CLONIDINE 2007-0 2021- No [id number] 1 tab tid Univers 0.3 MG ORAL 4-30 10-15 and prn ity of TAB 00:00: 00:00 [place] 00 :00 [facility] ASPIRIN 325 2006- Yes [id number] 1 tab U nivers MG ORAL TAB 0-04 daily ity of 00:00: [place] 00 [facility] ASPIRIN 325 2006- Yes [id number] 1 tab U nivers MG ORAL TAB 0-04 daily ity of 00:00: [place] [facility] ASPIRIN 325 2006- Yes [id number] 1 tab U nivers MG ORAL TAB 0-04 daily ity of 00:00: [place] 00 [facility] ASPIRIN 325 2006- Yes [id number] 1 tab U nivers MG ORAL TAB 0-04 daily ity of 00:00: [place] [facility] ASPIRIN 325 2006- Yes [id number] 1 tab U nivers MG ORAL TAB 0-04 daily ity of 00:00: [place] 00 [facility] ASPIRIN 325 2006- Yes [id number] 1 tab U nivers MG ORAL TAB 0-04 daily ity of 00:00: [place] [facility] ASPIRIN 325 2006-2- No [id number] 1 tab Univers MG ORAL TAB 0-04 10-15 daily ity of 00:00: 00:00 [place] 00 :00 [facility] ASPIRIN 325 2006-2021- No [id number] 1 tab Univers MG ORAL TAB 0-04 10-15 daily ity of 00:00: 00:00 [place] 00 :00 [facility] Immunizations Ordered Filled Immunization Date Status Comments [facility] e Immunization Name Name Influenza Virus 2007-06-20 Completed Universit y of Vaccine 00:00:00 [facility] Influenza Virus 2007-06-20 Completed Universit y of Vaccine 00:00:00 [facility] Influenza Virus 2007-06-20 Completed Universit y of Vaccine 00:00:00 [facility] Influenza Virus 2007-06-20 Completed Universit y of Vaccine 00:00:00 [facility] Influenza Virus 2007-06-20 Completed Universit y of Vaccine 00:00:00 [facility] Influenza Virus 2007-06-20 Completed Universit y of Vaccine 00:00:00 [facility] Influenza Virus 2007-06-20 Completed Universit y of Vaccine 00:00:00 [facility] Influenza Virus 2007-06-20 Completed Universit y of Vaccine 00:00:00 [facility] Influenza Virus 2007-06-20 Completed Universit y of Vaccine 00:00:00 [facility] Influenza Virus 2007-06-20 Completed Universit y of Vaccine 00:00:00 [facility] Influenza Virus 2007-06-20 Completed Universit y of Vaccine 00:00:00 [facility] Influenza Virus 2007-06-20 Completed Universit y of Vaccine 00:00:00 [facility] Influenza Virus 2007-06-20 Completed Universit y of Vaccine 00:00:00 [facility] Influenza Virus 2007-06-20 Completed Universit y of Vaccine 00:00:00 [facility] Influenza Virus 2007-06-20 Completed Universit y of Vaccine 00:00:00 [facility] Influenza Virus 2007-06-20 Completed Universit y of Vaccine 00:00:00 [facility] Influenza Virus 2007-06-20 Completed Universit y of Vaccine 00:00:00 [facility] Influenza Virus 2007-06-20 Completed Universit y of Vaccine 00:00:00 [facility] Influenza Virus 2007-06-20 Completed Universit y of Vaccine 00:00:00 [facility] Influenza Virus 2007-06-20 Completed Universit y of Vaccine 00:00:00 [facility] Influenza Virus 2007-06-20 Completed Universit y of Vaccine 00:00:00 [facility] Influenza Virus 2007-06-20 Completed Universit y of Vaccine 00:00:00 [facility] Influenza Virus 2007-06-20 Completed Universit y of Vaccine 00:00:00 [facility] Influenza Virus 2007-06-20 Completed Universit y of Vaccine 00:00:00 [facility] Influenza Virus 2006-07-26 Completed Universit y of Vaccine 00:00:00 [facility] Influenza Virus 2006-07-26 Completed Universit y of Vaccine 00:00:00 [facility] Influenza Virus 2006-07-26 Completed Universit y of Vaccine 00:00:00 [facility] Influenza Virus 2006-07-26 Completed Universit y of Vaccine 00:00:00 [facility] Influenza Virus 2006-07-26 Completed Universit y of Vaccine 00:00:00 [facility] Influenza Virus 2006-07-26 Completed Universit y of Vaccine 00:00:00 [facility] Influenza Virus 2006-07-26 Completed Universit y of Vaccine 00:00:00 [facility] Influenza Virus 2006-07-26 Completed Universit y of Vaccine 00:00:00 [facility] Influenza Virus 2006-07-26 Completed Universit y of Vaccine 00:00:00 [facility] Influenza Virus 2006-07-26 Completed Universit y of Vaccine 00:00:00 [facility] Influenza Virus 2006-07-26 Completed Universit y of Vaccine 00:00:00 [facility] Influenza Virus 2006-07-26 Completed Universit y of Vaccine 00:00:00 [facility] Influenza Virus 2006-07-26 Completed Universit y of Vaccine 00:00:00 [facility] Influenza Virus 2006-07-26 Completed Universit y of Vaccine 00:00:00 [facility] Influenza Virus 2006-07-26 Completed Universit y of Vaccine 00:00:00 [facility] Influenza Virus 2006-07-26 Completed Universit y of Vaccine 00:00:00 [facility] Influenza Virus 2006-07-26 Completed Universit y of Vaccine 00:00:00 [facility] Influenza Virus 2006-07-26 Completed Universit y of Vaccine 00:00:00 [facility] Influenza Virus 2006-07-26 Completed Universit y of Vaccine 00:00:00 [facility] Influenza Virus 2006-07-26 Completed Universit y of Vaccine 00:00:00 [facility] Influenza Virus 2006-07-26 Completed Universit y of Vaccine 00:00:00 [facility] Influenza Virus 2006-07-26 Completed Universit y of Vaccine 00:00:00 [facility] Influenza Virus 2006-07-26 Completed Universit y of Vaccine 00:00:00 [facility] Influenza Virus 2006-07-26 Completed Universit y of Vaccine 00:00:00 [facility] Vital Signs Vital Name Observation Time Observation Value Comments Source WEIGHT 2020-03-24 76.658 kg 00:00:00 Systolic blood 2022-11-01 129 mm[Hg] University of pressure 17:28:00 [facility] Diastolic blood 2022-11-01 80 mm[Hg] University o f pressure 17:28:00 [facility] Heart rate 2022-11-01 77 /min University of 17:28:00 [facility] Body temperature 2022-11-01 36.67 [facility] 17:28:00 [facility] Respiratory rate 2022-11-01 20 /min University of 17:28:00 [facility] Oxygen saturation 2022-11-01 94 /min [facility] in Arterial blood 17:28:00 [facility] by Pulse oximetry [place] Body weight 2022-10-31 77.1 kg University of 14:00:00 [facility] BMI 2022-10-31 29.18 kg/m2 University of 14:00:00 [facility] Systolic blood 2022-10-08 139 mm[Hg] University of pressure 15:29:00 [facility] Diastolic blood 2022-10-08 85 mm[Hg] University o f pressure 15:29:00 [facility] Heart rate 2022-10-08 72 /min University of 15:29:00 [facility] Body temperature 2022-10-08 35.56 Sindhu University of 15:29:00 [facility] Respiratory rate 2022-10-08 22 /min University of 15::00 [facility] Oxygen saturation 2022-10-08 96 /min University of in Arterial blood 15:29:00 [facility] by Pulse oximetry [place] Body height 2022-10-06 162.6 cm University of 22:03:00 [facility] Body weight 2022-10-06 78.926 kg University of 22:03:00 [facility] BMI 2022-10-06 29.87 kg/m2 University of 22:03:00 [facility] Body weight 2022-09-30 70.308 kg University of 17:27:00 [facility] BMI 2022-09-30 29.87 kg/m2 University of 17:27:00 [facility] Systolic blood 2022-06-25 150 mm[Hg] University of pressure 16:28: [facility] Diastolic blood 2022-06-25 92 mm[Hg] University o f pressure 16:28:00 [facility] Heart rate 2022-06-25 102 /min University of 16:28:00 [facility] Body temperature 2022-06-25 36.5 Sindhu [facility] of 16:28:00 [facility] Respiratory rate 2022-06-25 20 /min University of 16::00 [facility] Oxygen saturation 2022-06-25 91 /min [place] of in Arterial blood 16:28:00 [facility] by Pulse oximetry [place] Body weight 2022-06-21 71.215 kg University of 15::00 [facility] BMI 2022-06-21 26.13 kg/m2 University of 15:26:00 [facility] Body height 2022-06-20 165.1 cm University of 18:31:00 [facility] Systolic blood 2022-06-24 184 mm[Hg] University of pressure 12:28:00 [facility] [place] bedside Diastolic blood 2022-06-24 105 mm[Hg] dr Hernandez o f pressure 12:28:00 beena/goodvioleta [place] [facility] [place] bedside Heart rate 2022-06-24 79 /min University of 12:28:00 [facility] Body temperature 2022-06-24 36.5 Sindhu [facility] 12:28:00 [facility] Respiratory rate 2022-06-24 20 /min [facility] 12:28:00 [facility] [facility] Oxygen saturation 2022-06-24 95 /min [facility] of in Arterial blood 12:28:00 [facility] by Pulse oximetry Branch Body weight 2022-06-21 71.215 kg [facility] 15:26:00 [facility] BMI 2022-06-21 26.13 kg/m2 [facility] 15:26:00 [facility] Body height 2022-06-20 165.1 cm [facility] 18:31:00 [facility] Systolic blood 2021-05-11 156 mm[Hg] [facility] pressure 01:25:00 [facility] Diastolic blood 2021-05-11 77 mm[Hg] [place] o f pressure 01:25:00 [facility] Heart rate 2021-05-11 65 /min [facility] 01:25:00 [facility] Body temperature 2021-05-11 36.94 Sindhu [facility] 01:25:00 [facility] Respiratory rate 2021-05-11 18 /min [facility] 01:25:00 [facility] Oxygen saturation 2021-05-11 96 /min [facility] in Arterial blood 01:25:00 [facility] by Pulse oximetry [place] Body weight 2021-05-10 68.04 kg [facility] 12:50:00 [facility] WEIGHT 2020-03-24 76.658 kg 00:00:00 Systolic (mm Hg) 2018-02-27 [facility] Ishan rmann 18:06:00 Diastolic (mm Hg) 2018-02-27 [facility] Nikia ermann 18:06:00 Heart Rate 2018-02-27 [facility] 18:06:00 Temperature Oral 2018-02-27 99.4 F [facility] Ishan rmann (F) 18:06:00 Respitory Rate 2018-02-27 [facility] 18:06:00 Systolic (mm Hg) 2018-02-27 [facility] Ishan rmann 12:34:00 Diastolic (mm Hg) 2018-02-27 [facility] Nikia ermann 12:34:00 Respitory Rate 2018-02-27 [facility] 12:34:00 Temperature Oral 2018-02-27 97.8 F [facility] Ishan rmann (F) 12:34:00 Heart Rate 2018-02-27 [facility] J[facility] n 12:34:00 Heart Rate 2018-02-27 [facility] 09:19:00 Temperature Oral 2018-02-27 98.1 F [facility] (F) 09:19:00 Respitory Rate 2018-02-27 [facility] 09:19:00 Systolic (mm Hg) 2018-02-27 [facility] 09:19:00 Diastolic (mm Hg) 2018-02-27 [facility] 09:19:00 BMI Calculated 2018-02-19 [facility] 11:09:00 Weight 2018-02-19 [facility] 11:09:00 Height 2018-02-19 162.56 cm [facility] 11:09:00 Systolic (mm Hg) 2018-02-13 [facility] 14:30:00 Diastolic (mm Hg) 2018-02-13 [facility] 14:30:00 Respitory Rate 2018-02-13 [facility] 14:30:00 Heart Rate 2018-02-13 [facility] 14:30:00 Temperature Oral 2018-02-13 96.8 F [facility] (F) 14:30:00 Respitory Rate 2018-02-13 [facility] 09:30:00 Systolic (mm Hg) 2018-02-13 [facility] 09:30:00 Diastolic (mm Hg) 2018-02-13 [facility] 09:30:00 Heart Rate 2018-02-13 [facility] 09:30:00 Temperature Oral 2018-02-13 97 F [facility] (F) 09:30:00 Systolic (mm Hg) 2018-02-13 [facility] 04:55:00 Diastolic (mm Hg) 2018-02-13 [facility] 04:55:00 Respitory Rate 2018-02-13 [facility] 04:55:00 Heart Rate 2018-02-13 [facility] 04:55:00 Temperature Oral 2018-02-13 97 F [facility] (F) 04:55:00 Weight 2018-02-06 [facility] 03:59:00 BMI Calculated 2018-02-06 [facility] 03:59:00 Height 2018-02-06 162.56 cm [facility] 03:59:00 BMI Calculated 2018-02-06 [facility] 01:47:00 Height 2018-02-06 162.56 cm [facility] 01:47:00 Weight 2018-02-06 [facility] 01:47:00 Weight 2018-02-06 Elma Camara n 01:46:00 Procedures Procedure Date / Time Performing Clinician Source Performed HOME HEALTH - OTHER 2022-11-11 Doctor Unassigned, Universit y of 06:01:00 [facility] EXTERNAL PROVIDER RECORDS 2022-11-10 Doctor Unassigned, Uni versity of 06:01:00 [facility] COVID-19 (ID NOW RAPID 2022-11-01 [facility] y of TESTING) 19:31:00 [facility] POCT GLUCOSE (AUTOMATED) 2022-11-01 Jarvis Milligan [facility] of 17:45:00 [facility] POCT GLUCOSE (AUTOMATED) 2022-11-01 Jarvis Milligan [facility] of 13:54:00 [facility] POCT GLUCOSE (AUTOMATED) 2022-11-01 Jarvis Milligan [facility] of 01:54:00 [facility] POCT GLUCOSE (AUTOMATED) 2022-10-31 Jarvis Milligan [facility] of 22:16:00 [facility] POCT GLUCOSE (AUTOMATED) 2022-10-31 Jarvis Milligan [facility] of 17:38:00 [facility] POCT GLUCOSE (AUTOMATED) 2022-10-31 Jarvis Milligan [facility] of 14:35:00 [facility] POCT GLUCOSE (AUTOMATED) 2022-10-31 Jarvis Milligan [facility] of 03:26:00 [facility] POCT GLUCOSE (AUTOMATED) 2022-10-30 Jarvis Milligan [facility] of 17:29:00 [facility] POCT GLUCOSE (AUTOMATED) 2022-10-30 Jarvis Milligan [facility] of 13:45:00 [facility] CBC WITHOUT DIFF 2022-10-30 Abdirashid [facility] of 10:52:00 [facility] POCT GLUCOSE (AUTOMATED) 2022-10-30 Jarvis Milligan [facility] of 01:54:00 [facility] POCT GLUCOSE (AUTOMATED) 2022-10-29 Jarvis Milligan [facility] of 22:49:00 [facility] POCT GLUCOSE (AUTOMATED) 2022-10-29 Jarvis Milligan [facility] of 17:47:00 [facility] POCT GLUCOSE (AUTOMATED) 2022-10-29 Chel Jarvis Univers ity of 13:45:00 [facility] POCT GLUCOSE (AUTOMATED) 2022-10-29 Chel, Jarvis Univers ity of 02:03:00 [facility] POCT GLUCOSE (AUTOMATED) 2022-10-28 Chel Jarvis [facility] ity of 23:28:00 [facility] POCT GLUCOSE (AUTOMATED) 2022-10-28 Chel Jarvis [facility] ity of 18:24:00 [facility] POCT GLUCOSE (AUTOMATED) 2022-10-28 Chel Jarvis [facility] ity of 14:36:00 [facility] BASIC METABOLIC PANEL (NA, K, 2022-10-28 [facility] of CL, CO2, GLUCOSE, BUN, 10:14:00 [facility] ical CREATININE, [place]) Branch CBC WITH DIFF 2022-10-28 [facility] of 10:14:00 [facility] POCT GLUCOSE (AUTOMATED) 2022-10-28 Chel Jarvis Univers ity of 02:04:00 [facility] POCT GLUCOSE (AUTOMATED) 2022-10-27 Chel Jarvis Univers ity of 22:35:00 [facility] POCT GLUCOSE (AUTOMATED) 2022-10-27 Chel Jarvis Univers ity of 17:33:00 [facility] POCT GLUCOSE (AUTOMATED) 2022-10-27 Chel Jarvis Univers ity of 14:41:00 [facility] POCT GLUCOSE (AUTOMATED) 2022-10-27 Chel Jarvis Univers ity of 03:31:00 [facility] POCT GLUCOSE (AUTOMATED) 2022-10-26 Raul Rosen S Univer sity of 22:30:00 [facility] POCT GLUCOSE (AUTOMATED) 2022-10-26 Raul Rosen S Univer sity of 17:32:00 [facility] POCT GLUCOSE (AUTOMATED) 2022-10-26 Raul Rosen Univer sity of 13:26:00 [facility] BASIC METABOLIC PANEL (NA, K, 2022-10-26 [facility] of CL, CO2, GLUCOSE, BUN, 11:36:00 [facility] ica CREATININE, [place]) Branch CBC WITH DIFF 2022-10-26 [place] [facility] of 11:36:00 [facility] MAGNESIUM 2022-10-26 [facility] of 02:30:00 [facility] BASIC METABOLIC PANEL (NA, K, 2022-10-26 [facility] of CL, CO2, GLUCOSE, BUN, 02:30:00 [facility] ica CREATININE, [place]) Branch POCT GLUCOSE (AUTOMATED) 2022-10-26 Raul Rosen Univer sity of 01:48:00 [facility] POCT GLUCOSE (AUTOMATED) 2022-10-25 Raul Rosen Univer sity of 22:14:00 [facility] POCT GLUCOSE (AUTOMATED) 2022-10-25 Raul Rosen Univer sity of 17:33:00 [facility] ROSIO AURIS SURVEILLANCE BY 2022-10-25 Aleksandr Borja [employer] of PCR (INFECTION CONTROL 15:47:00 [facility] PURPOSES) Branch POCT GLUCOSE (AUTOMATED) 2022-10-25 Raul Rosen Univer sity of 14:25:00 [facility] POCT GLUCOSE (AUTOMATED) 2022-10-25 Raul Rosen Univer sity of 13:36:00 [facility] CT ANGIOGRAM HEAD 2022-10-25 Liza Quiroz [place] of 10:18:30 [facility] CT HEAD WO CONTRAST 2022-10-25 Nini Mendenhall of 10:18:30 [facility] CT ANGIOGRAM NECK 2022-10-25 [facility] [place] of 10:18:30 [facility] BASIC METABOLIC PANEL (NA, K, 2022-10-25 Nini Mendenhall niversity of CL, CO2, GLUCOSE, BUN, 09:42:00 [facility] ica CREATININE, [place]) Branch CBC WITH DIFF 2022-10-25 Nini Mendenhall of 09:42:00 [facility] PROTHROMBIN TIME / INR 2022-10-25 Nini Mendenhall [facility] ty of 09:42:00 [facility] ACTIVATED PARTIAL THRMPLAS 2022-10-25 Abdirashid [facility] ersity of ANUSHA 09:42:00 [facility] FIBRINOGEN 2022-10-25 Abdirashid [facility] of 09:42:00 [facility] XR ELBOW <3 VW LEFT 2022-10-25 [facility] o f 02:12:03 [facility] XR SHOULDER <2 VW LEFT 2022-10-25 [facility] 02:12:03 [facility] XR WRIST 3+ VW LEFT 2022-10-25 [facility] o f 02:12:03 [facility] CT HEAD WO CONTRAST 2022-10-25 [facility] o f 01:45:02 [facility] URINE CULTURE 2022-10-25 [facility] of 00:42:00 [facility] HB ECG ROUTINE & RHYTHM STRIP 2022-10-25 Liza Quiroz iversity of 00:38:10 [facility] URINALYSIS 2022-10-25 [facility] of 00:32:00 [facility] LIPASE 2022-10-25 [facility] of 00:12:00 [facility] MAGNESIUM 2022-10-25 [facility] of 00:12:00 [facility] TROPONIN I 2022-10-25 [facility] of 00:12:00 [facility] COMP. METABOLIC PANEL (52257) 2022-10-25 Liza Quiroz iversity of 00:12:00 [facility] CBC WITH DIFF 2022-10-25 [facility] 00:12:00 [facility] PROTHROMBIN TIME / INR 2022-10-25 [facility] 00:12[facility]00 [facility] N-TERMINAL PRO-BNP 2022-10-25 [facility] 00:12:00 [facility] EMERGENCY DEPARTMENT 2022-10-24 Doctor Unassigned, [facility] ty of DOCUMENTS 06:01:00 [facility] COVID-19 (ID NOW RAPID 2022-10-08 Chauncey [facility] y of TESTING) 14:58:00 [facility] COVID-19 (ID NOW RAPID 2022-10-08 [facility] y of TESTING) 14:58:00 [facility] LAB ONLY COVID INTERPRETATION 2022-10-08 Adelaide Grossman Un iversity of 14:58:00 [facility] POCT GLUCOSE (AUTOMATED) 2022-10-08 [place], Univers ity of 14:55:00 [facility] POCT GLUCOSE (AUTOMATED) 2022-10-08 [place], Univers ity of 14:55:00 [facility] POCT GLUCOSE (AUTOMATED) 2022-10-08 [place], Univers ity of 03:51:00 [facility] POCT GLUCOSE (AUTOMATED) 2022-10-08 [place], Univers ity of 03:51:00 [facility] POCT GLUCOSE (AUTOMATED) 2022-10-08 [place], Univers ity of 03:10:00 [facility] POCT GLUCOSE (AUTOMATED) 2022-10-08 [place], Univers ity of 03:10:00 [facility] COVID-19 (ID NOW RAPID 2022-10-07 [facility] y of TESTING) 20:42:00 [facility] LAB ONLY COVID INTERPRETATION 2022-10-07 Adelaide Grossman Un iversity of 20:42:00 [facility] COVID-19 (ID NOW RAPID 2022-10-07 [facility] y of TESTING) 20:42:00 [facility] LAB ONLY COVID INTERPRETATION 2022-10-07 Adelaide Grossman Un iversity of 20:42:00 [facility] HB ECG ROUTINE & RHYTHM STRIP 2022-10-07 [place] Un iversity of 14:09:51 [facility] HB ECG ROUTINE & RHYTHM STRIP 2022-10-07 Chandra Betancourt iversity of 14:09:51 [facility] MAGNESIUM 2022-10-07 Adelaide Grossman University of 11:05:00 [facility] BASIC METABOLIC PANEL (NA, K, 2022-10-07 Adelaide Grossman Un iversity of CL, CO2, GLUCOSE, BUN, 11:05:00 [place] [facility] CREATININE[place]) Branch CBC WITH DIFF 2022-10-07 [facility] of 11:05:00 [facility] MAGNESIUM 2022-10-07 [facility] of 11:05:00 [facility] BASIC METABOLIC PANEL (NA, K, 2022-10-07 ChaunceyAliciaAdelaide Un iversity of CL, CO2, GLUCOSE, BUN, 11:05:00 [place] [facility] CREATININE, [place]) Branch CBC WITH DIFF 2022-10-07 [facility] of 11:05:00 [facility] CT HEAD WO CONTRAST 2022-10-06 [facility] o f 21:38:43 [facility] CT HEAD WO CONTRAST 2022-10-06 [facility] o f 21:38:43 [facility] XR CHEST 1 VW 2022-10-06 [facility] of 18:00:00 [facility] XR CHEST 1 VW 2022-10-06 [facility] of 18:00:00 [facility] CARDIAC [facility] 2022[facility]10-06 [facility] 15:30:17 [facility] ELECTROPHYSIOLOGY PROCEDURE 2022-10-06 [facility] ersity of 15:30:17 [facility] ELECTROPHYSIOLOGY PROCEDURE 2022-10-06 [facility], [facility] ersity of 15:30:17 [facility] CARDIAC CATHETERIZATION 2022[facility]10-06 [facility] 15:30:17 [facility] ELECTROPHYSIOLOGY PROCEDURE 2022-10-06 [facility] ersity of 15:30:17 [facility] ELECTROPHYSIOLOGY PROCEDURE 2022-10-06 [facility], [facility] ersity of 15:30:17 [facility] CBC WITH DIFF 2022-10-03 [facility] of 17:03:00 [facility] PROTHROMBIN TIME / INR 2022[facility]10-03 [facility] 17:03:00 [facility] ASSIGNMENT OF BENEFITS 2022-08-03 Doctor Unassigned, Univer sity of 17:21:11 Widener [facility] EXTERNAL PROVIDER RECORDS 2022-07-07 Doctor Unassigned, Uni versity of 05:01:00 Widener [facility] POCT GLUCOSE (AUTOMATED) 2022-06-25 Alverto, [facility] ersity of 17:11:00 [facility] POCT GLUCOSE (AUTOMATED) 2022-06-25 Alverto [facility] ersity of 17:11:00 [facility] POCT GLUCOSE (AUTOMATED) 2022-06-25 Alverto, [facility] ersity of 14:07:00 [facility] POCT GLUCOSE (AUTOMATED) 2022-06-25 Alverto, [facility] ersity of 14:07:00 [facility] MAGNESIUM 2022-06-25 Gita [facility] of 10:22:00 [facility] BASIC METABOLIC PANEL (NA, K, 2022-06-25 Gita [place] Un iversity of CL, CO2, GLUCOSE, BUN, 10:22:00 [place] [facility] CREATININE, [place]) Branch CBC WITHOUT DIFF 2022-06-25 Gita [facility] of 10:22:00 [facility] MAGNESIUM 2022-06-25 Gita [facility] of 10:22:00 [facility] BASIC METABOLIC PANEL (NA, K, 2022-06-25 Gita [place] Un iversity of CL, CO2, GLUCOSE, BUN, 10:22:00 [place] [facility] CREATININE, [place]) Branch CBC WITHOUT DIFF 2022-06-25 Gita [facility] of 10:22:00 [facility] POCT GLUCOSE (AUTOMATED) 2022-06-25 Alverto [facility] ersity of 01:29:00 [facility] POCT GLUCOSE (AUTOMATED) 2022-06-25 Alverto, [facility] ersity of 01:29:00 [facility] POCT GLUCOSE (AUTOMATED) 2022-06-24 Alverto [facility] ersity of 22:20:00 [facility] POCT GLUCOSE (AUTOMATED) 2022-06-24 Alverto [facility] ersity of 22:20:00 [facility] POCT GLUCOSE (AUTOMATED) 2022-06-24 Acacia Del Toro [facility] ersity of 18:06:00 [facility] POCT GLUCOSE (AUTOMATED) 2022-06-24 [facility] of 18:06:00 [facility] CBC WITHOUT DIFF 2022-06-24 [facility] of 17:27:00 [facility] CBC WITHOUT DIFF 2022-06-24 [facility] of 17:27:00 [facility] MAGNESIUM 2022-06-24 [facility] of 17:26:00 [facility] BASIC METABOLIC PANEL (NA, K, 2022-06-24 [facility] iversity of CL, CO2, GLUCOSE, BUN, 17:26:00 [place] [facility] CREATININE, [place]) Branch MAGNESIUM 2022-06-24 [facility] of 17:26:00 [facility] BASIC METABOLIC PANEL (NA, K, 2022-06-24 [facility] iversity of CL, CO2, GLUCOSE, BUN, 17:26:00 [place] [facility] CREATININE, [place]) Branch ELECTROPHYSIOLOGY PROCEDURE 2022-06-24 [facility] ersity of 13:36:26 [facility] ELECTROPHYSIOLOGY PROCEDURE 2022-06-24 [facility] ersity of 13:36:26 [facility] POCT GLUCOSE (AUTOMATED) 2022-06-24 [facility] of 13:01:00 [facility] POCT GLUCOSE (AUTOMATED) 2022-06-24 Alverto [facility] ersity of 13:01:00 [facility] POCT GLUCOSE (AUTOMATED) 2022-06-24 Ca Meléndez versity of 03:58:00 [facility] POCT GLUCOSE (AUTOMATED) 2022-06-24 Ca Meléndez versity of 03:58:00 [facility] URINALYSIS 2022-06-23 [facility] 22:59:00 [facility] URINALYSIS 2022-06-23 [facility] of 22:59:00 [facility] POCT GLUCOSE (AUTOMATED) 2022-06-23 [place], [place] Uni versity of 22:38:00 [facility] POCT GLUCOSE (AUTOMATED) 2022-06-23 Low, [place] Uni versity of 22:38:00 [facility] POCT GLUCOSE (AUTOMATED) 2022-06-23 Low, [place] Uni versity of 17:07:00 [facility] POCT GLUCOSE (AUTOMATED) 2022-06-23 Low, [place] Uni versity of 17:07:00 [facility] POCT GLUCOSE (AUTOMATED) 2022-06-23 Low, [place] Uni versity of 12:31:00 [facility] POCT GLUCOSE (AUTOMATED) 2022-06-23 Low, [place] Uni versity of 12:31:00 [facility] MAGNESIUM 2022-06-23 [facility] 09:22:00 [facility] BASIC METABOLIC PANEL (NA, K, 2022-06-23 Gita Michelle Un iversity of CL, CO2, GLUCOSE, BUN, 09:22:00 [place] [facility] CREATININE, [place]) Branch CBC WITHOUT DIFF 2022-06-23 Gita [facility] of 09:22:00 [facility] MAGNESIUM 2022-06-23 Vereniceallilli [facility] of 09:22:00 [facility] BASIC METABOLIC PANEL (NA, K, 2022-06-23 Marlys Pelayoah Un iversity of CL, CO2, GLUCOSE, BUN, 09:22:00 [place] [facility] CREATININE, [place]) Branch CBC WITHOUT DIFF 2022-06-23 Gita [facility] of 09:22:00 [facility] HB ECG ROUTINE & RHYTHM STRIP 2022-06-23 Fawad Muñoz [place] of 04:21:59 [facility] HB ECG ROUTINE & RHYTHM STRIP 2022-06-23 Fawad Muñoz [place] of 04:21:59 [facility] POCT GLUCOSE (AUTOMATED) 2022-06-23 [place], [place] Uni versity of 02:30:00 [facility] POCT GLUCOSE (AUTOMATED) 2022-06-23 Low, [place] Uni versity of 02:30:00 [facility] PHOSPHORUS 2022-06-22 [facility] 22:43:00 [facility] PHOSPHORUS 2022-06-22 [facility] of 22:43:00 [facility] METANEPHRINES, PLASMA 2022-06-22 Michelle Pelayo [place] of 22:42:00 [facility] POCT GLUCOSE (AUTOMATED) 2022-06-22 [place], [place] Uni versity of 21:59:00 [facility] POCT GLUCOSE (AUTOMATED) 2022-06-22 Low, [place] Uni versity of 21:59:00 [facility] POCT GLUCOSE (AUTOMATED) 2022-06-22 Low, Ca [place] Uni versity of 16:52:00 [facility] POCT GLUCOSE (AUTOMATED) 2022-06-22 Low, Ca [place] Uni versity of 16:52:00 [facility] POCT GLUCOSE (AUTOMATED) 2022-06-22 Low, Ca [place] Uni versity of 13:13:00 [facility] POCT GLUCOSE (AUTOMATED) 2022-06-22 Low, Ca [place] Uni versity of 13:13:00 [facility] MAGNESIUM 2022-06-22 [facility] of 10:07:00 [facility] FERRITIN SERUM 2022-06-22 [facility] of 10:07:00 [facility] VITAMIN B12, LEVEL 2022-06-22 [facility] of 10:07:00 [facility] BASIC METABOLIC PANEL (NA, K, 2022-06-22 [facility] iversity of CL, CO2, GLUCOSE, BUN, 10:07:00 [facility] ical CREATININE, CA) [place] IRON PANEL 2022-06-22 [facility] of 10:07:00 [facility] CBC WITH DIFF 2022-06-22 [facility] of 10:07:00 [facility] MAGNESIUM 2022-06-22 [facility] of 10:07:00 [facility] FERRITIN SERUM 2022-06-22 [facility] of 10:07:00 [facility] VITAMIN B12, LEVEL 2022-06-22 [facility] of 10:07:00 [facility] BASIC METABOLIC PANEL (NA, K, 2022-06-22 Bin Gomez iversity of CL, CO2, GLUCOSE, BUN, 10:07:00 [facility] ical CREATININE, CA) Branch IRON PANEL 2022-06-22 Bin Gomez [place] of 10:07:00 [facility] CBC WITH DIFF 2022-06-22 [facility] of 10:07:00 [facility] POCT GLUCOSE (AUTOMATED) 2022-06-22 [facility] versity of 00:54:00 [facility] POCT GLUCOSE (AUTOMATED) 2022-06-22 LowCa Uni versity of 00:54:00 [facility] POCT GLUCOSE (AUTOMATED) 2022-06-21 Srinath Cohen Univers ity of 21:48:00 [facility] POCT GLUCOSE (AUTOMATED) 2022-06-21 Srinath Cohen Univers ity of 21:48:00 [facility] HB ECG ROUTINE & RHYTHM STRIP 2022-06-21 Bin Gomez iversity of 19:13:25 [facility] HB ECG ROUTINE & RHYTHM STRIP 2022-06-21 Bin Gomez iversity of 19:13:25 [facility] TRANSTHORACIC ECHO (TTE) 2022-06-21 Bin Gomez [facility] ity of COMPLETE W/ CONTRAST 16:58:45 [facility] TRANSTHORACIC ECHO (TTE) 2022-06-21 Bin Gomez [facility] ity of COMPLETE W/ CONTRAST 16:58:45 [facility] POCT GLUCOSE (AUTOMATED) 2022-06-21 Srinath Cohen Univers ity of 16:35:00 [facility] POCT GLUCOSE (AUTOMATED) 2022-06-21 Srinath Cohen Univers ity of 16:35:00 [facility] THYROID STIMULATING HORMONE 2022-06-21 Bin Gomez [facility] ersity of 12:08:00 [facility] COMP. METABOLIC PANEL (81493) 2022-06-21 Anastasiya Tapia [place] of 12:08:00 [facility] CBC WITH DIFF 2022-06-21 Anastasiya Tapia [place] of 12:08:00 [facility] GLYCOSYLATED HEMOGLOBIN (A1C) 2022-06-21 Bin Gomez iversity of 12:08:00 [facility] THYROID STIMULATING HORMONE 2022-06-21 Bin Gomez [facility] ersity of 12:08:00 [facility] COMP. METABOLIC PANEL (89689) 2022-06-21 Anastasiya Tapia [place] of 12:08:00 [facility] CBC WITH DIFF 2022-06-21 Anastasiya Tapia [place] of 12:08:00 [facility] GLYCOSYLATED HEMOGLOBIN (A1C) 2022-06-21 Bin Gomez iversity of 12:08:00 [facility] COVID-19 (ID NOW RAPID 2022-06-21 Anastasiya Tapia [facility] sity of TESTING) 07:07:00 [facility] LAB ONLY COVID INTERPRETATION 2022-06-21 Anastasiya Tapia [place] of 07:07:00 [facility] COVID-19 (ID NOW RAPID 2022-06-21 Anastasiya Tapia [facility] sity of TESTING) 07:07:00 [facility] LAB ONLY COVID INTERPRETATION 2022-06-21 Anastasiya Tapia [place] of 07:07:00 [facility] LACTIC ACID WHOLE BLOOD 2022-06-21 Srinath Cohen [facility] of 04:05:00 [facility] LACTIC ACID WHOLE BLOOD 2022-06-21 Singer Srinath [facility] of 04:05:00 [facility] CT HEAD WO CONTRAST 2022-06-21 Srinath Cohen o f 00:42:20 [facility] CT HEAD WO CONTRAST 2022-06-21 Singer Srinath [place] o f 00:42:20 [facility] ELECTROENCEPHALOGRAM 2022-06-21 [facility] of 00:00:00 [facility] ELECTROENCEPHALOGRAM 2022-06-21 [facility] of 00:00:00 [facility] LACTIC ACID WHOLE BLOOD 2022-06-20 [facility]rinath Cohen [facility] 23:59:00 [facility] LACTIC ACID WHOLE BLOOD 2022-06-20 Srinath Cohen [facility] of 23:59:00 [facility] CT ANGIOGRAM ABDOMEN/PELVIS 2022-06-20 Srinath Cohen [facility] ersity of 20:21:56 [facility] CT ANGIOGRAM ABDOMEN/PELVIS 2022-06-20 Srinath Cohen [facility] ersity of 20:21:56 [facility] URINALYSIS 2022-06-20 [facility] of 19:04:00 [facility] URINE CULTURE 2022-06-20 Singer [facility] of 19:04:00 [facility] URINALYSIS 2022-06-20 [facility] of 19:04:00 [facility] URINE CULTURE 2022-06-20 [facility] of 19:04:00 [facility] XR CHEST 1 VW 2022-06-20 Singer [facility] of 18:50:20 [facility] XR CHEST 1 VW 2022-06-20 Singer [facility] of 18:50:20 [facility] BLOOD CULTURE SCREEN 2022-06-20 Singer [facility] of 18:46:00 [facility] BLOOD CULTURE SCREEN 2022-06-20 Singer [facility] of 18:46:00 [facility] BLOOD CULTURE SCREEN 2022-06-20 Singer [facility] of 18:39:00 [facility] TROPONIN I 2022-06-20 Singer [facility] of 18:39:00 [facility] COMP. METABOLIC PANEL (53315) 2022-06-20 Singer Srinath Un iversity of 18:39:00 [facility] CBC WITH DIFF 2022-06-20 Srinath Cohen [place] of 18:39:00 [facility] BLOOD CULTURE SCREEN 2022-06-20 [facility] of 18:39:00 [facility] TROPONIN I 2022-06-20 Singer [facility] of 18:39:00 [facility] COMP. METABOLIC PANEL (79816) 2022-06-20 Singer Srinath Un iversity of 18:39:00 [facility] CBC WITH DIFF 2022-06-20 [facility] of 18:39:00 [facility] EKG-12 LEAD 2022-06-20 [facility] of 18:38:36 [facility] EKG-12 LEAD 2022-06-20 [facility] of 18:38:36 [facility] LACTIC ACID WHOLE BLOOD 2022-06-20 Srinath Cohen [facility] of 18:38:00 [facility] LACTIC ACID WHOLE BLOOD 2022-06-20 Srinath Cohen [facility] 18:38:00 [facility] EMERGENCY DEPARTMENT 2022-06-20 Doctor Unassigned, [facility] of DOCUMENTS 05:01:00 [place] [facility] HOSPITAL ADMISSION 2022-06-20 Doctor Unassigned, [facility] 05:01:00 [place] [facility] ASSIGNMENT OF BENEFITS 2021-05-07 Doctor Unassigned, [facility] of 21:31:03 [place] [facility] Hysterectomy [facility] Plan of Care Planned Activity Planned Date Details Comments Source Future Scheduled 2023-05-[address] [facility] 00:00:00 (Season Ended) [code = Medic al Center INFLUENZA VACCINE (Season Ended)] Future Scheduled 2023-05-[address] [facility] 00:00:00 (Season Ended) [code = Medic al Center INFLUENZA VACCINE (Season Ended)] Future Scheduled 2022-09-[address] [facility] 00:00:00 (12+) [code = Medical Center DEPRESSION SCREENING (12+)] Future Scheduled 2022-09-11 FALLS RISK SCREENING [facility] 00:00:00 [code = FALLS RISK Medical C enter SCREENING] Future Scheduled 2022-09-[address] [facility] 00:00:00 (12+) [code = Medical Center DEPRESSION SCREENING (12+)] Future Scheduled 2022-09-11 FALLS RISK SCREENING [facility] 00:00:00 [code = FALLS RISK Medical C enter SCREENING] Future Scheduled 2022-09-[address] [...] Cessation Counseling and Screening (12+)] Future Scheduled 2021-03-[address] [facility] 00:00:00 Counseling and Medical Cente r Screening (12+) [code = Tobacco Cessation Counseling and Screening (12+)] Future Scheduled 2021-03-[address] [facility] 00:00:00 Counseling and Medical Cente r Screening (12+) [code = Tobacco Cessation Counseling and Screening (12+)] Future Scheduled 2020-09-[address] [facility] 00[facility]00 measurement Medical Center (procedure) [code = 31565146] Future Scheduled 2020-09-[address] [facility] 00:00:00 measurement Medical Center (procedure) [code = 59505927] Future Scheduled 2020-09-[address] [facility] 00:00:00 measurement Medical Center (procedure) [code = 58688398] Future Scheduled 2020-09-[address] [facility] 00:00:00 measurement Medical Center (procedure) [code = 58206593] Future Scheduled 2020-09-[address] [facility] 00:00:00 measurement Medical Center (procedure) [code = 87384002] Future Scheduled 2020-09-[address] [facility] 00:00:00 measurement Medical Center (procedure) [code = 87391151] Future Scheduled 2020-09-[address] [facility] 00:00:00 measurement Medical Center (procedure) [code = 59092337] Future Scheduled 2020-09-[address] [facility] 00:00:00 (1 of 1 - [facility] [id number] PCV13) [code = PNEUMOCOCCAL 65+ YRS (1 of 1 - [id number] PCV13)] Future Scheduled 2002 PNEUMOCOCCAL 65+ YRS [facility] 00:00:00 (1 of 1 [facility] [id number] PCV13) [code = PNEUMOCOCCAL 65+ YRS (1 of 1 - [id number] PCV13)] Future Scheduled 1999-11-11 MEDICARE ANNUAL [facility] [...] [facility] 00:00:00 protein (procedure) [facility] [code = 159268616] Future Scheduled 1947 DIABETIC EYE EXAM [facility] 00:00:00 [code = DIABETIC EYE Medical Center EXAM] Future Scheduled 1947 Urine screening for [facility] 00:00:00 protein (procedure) Medical Center [code = 884869659] Future Scheduled [address]AB[address] EYE EXAM [facility] 00:00:00 [code = DIABETIC EYE Medical Center EXAM] Future Scheduled 1947 Urine screening for [facility] 00:00:00 protein (procedure) Medical Center [code = 797053956] Future Scheduled 1947 DIABETIC EYE EXAM [facility] 00:00:00 [code = DIABETIC EYE Medical Center EXAM] Future Scheduled 1947 Urine screening for [facility] 00:00:00 protein (procedure) Medical Center [code = 480665099] Future Scheduled 1947 DIABETIC EYE EXAM [facility] 00:00:00 [code = DIABETIC EYE Medical Center EXAM] Future Scheduled 1947 Urine screening for [facility] 00:00:00 protein (procedure) Medical Center [code = 935779213] Future Scheduled 1947 DIABETIC EYE EXAM [facility] 00:00:00 [code = DIABETIC EYE Medical Center EXAM] Future Scheduled 1947 Urine screening for [facility] 00:00:00 protein (procedure) Medical Center [code = 129607080] Future Scheduled 1947 DIABETIC EYE EXAM [facility] 00:00:00 [code = DIABETIC EYE Medical Center EXAM] Future Scheduled 1947 Urine screening for [facility] 00:00:00 protein (procedure) Medical Center [code = 168502117] Future Scheduled 1943 PNEUMOCOCCAL 65+ YRS CHI [...] DXA [facility] 00:00:00 SCAN] [facility] Future Scheduled 1937 DXA SCAN [code = DXA [facility] 00:00:00 SCAN] [facility] Future Scheduled 1937 DXA SCAN [code = DXA [facility] 00:00:00 SCAN] [facility] Future Scheduled 1937 DXA SCAN [code = DXA [facility] 00:00:00 SCAN] [facility] Encounters Start End Encounter Admission Attending Care Care Encounter Source Date/Time Date/Time Type Type Clinicians Facility Department ID 2022-10-12 Outpatient [facility] [id number] [place] 11:19:01 [id number] [facility] 2020-03-24 [id number] [facility] 23:52:00 JUAQUIN Med 2022-12-22 2022-12-22 [id number] Univers 00:00:00 00:00:00 GILBERT [facility] 2022-11-11 2022-11-11 Hospital ELIAS Hylton 1.2.840.114 [id number] Univers 07:05:00 23:59:00 Encounter Inez Montejo 350.1.13.10 ity of [facility] 4.2.7.2.[id number] [facility] [address] 2022-11-11 2022-11-11 [facility] [id number] Univers 00:00:00 23:59:00 INEZ storm [facility] 2022-11-11 2022-11-11 Orders Doctor NEWMAN 1.2.840.114 [id number] Univers 00:00:00 00:00:00 Only Unassigned, RAYA 350.1.13.10 ity of [place] [facility] 4.2.7.2.[id number] [facility] 00[address] [place] 2022-11-10 2022-11-10 Orders Doctor NEWMAN 1.2.840.114 [id number] Univers 00:00:00 00:00:00 Only Unassigned, RAYA 350.1.13.10 ity of [place] [facility] 4.2.7.2.[id number] [facility] [address] [place] 2022-10-24 2022-11-01 Inpatient X CHEL [facility] SNS [id number] Univers 17:16:00 17:33:00 JARVIS [facility] 2022-10-24 2022-11-01 [facility] Liza Quiroz 1.2.840.11 [id number] Univers 17:16:00 17:33:00 Encounter Raul Rosen 350.1.13.10 ity of [facility] Jarvis [facility] 4.2.7.2.[address] [place] [id number] [facility] 098 Branch 2022-10-10 2022-10-13 Inpatient E APRYL, [facility] [address] [facility] 13:24:00 18:20:00 CASSUIS 2022-10-11 2022-10-11 Telephone Asia [facility] 1.2.840.114 [id number] Univers 00:00:00 00:00:00 [facility] 350.1.13.10 ity of [facility] [place] [id number] [facility] 059 Branch OFFICE BUILDING 2022-10-06 2022-10-08 Outpatient R [facility] [id number] Univers 06:20:00 13:18:00 [facility] 2022-10-06 2022-10-08 Hospital Harini Betancourt 1 .2.840.114 [id number] Univers 06:20:00 13:18:00 Encounter Dayami Love RAYA 350.1.1 3.10 ity of [facility] 4.2.7.2.[id number] [facility] 0[address] 2022-10-06 2022-10-06 Surgery VIKTORIA Betancourt 1.2.840.114 [id number] Univers 08:00:00 09:45:00 [facility] 350.1.13.10 ity of [facility] 4.2.7.2.[id number] [facility] 840 Branch 2022-10-03 2022-10-03 Leather Belt Maker Criss, Mark Lab Main [facility] 1.2.8 40.114 [id number] Univers 10:30:00 10:45:00 Visit Harini Betancourt 350.1 .13.10 ity [facility] [place].2.7.2.[place] [id number] Sd dical [facility] 353 Branch BUILDING 2022-10-03 2022-10-03 Outpatient R HARINI BETANCOURT [facility] [id number] Univers 10:30:00 10:30:00 HARINI BETANCOURT ity [facility] 2022-09-13 2022-09-13 Telephone VIKTORIA Betancourt 1.2.840.114 [id number] Univers 00:00:00 00:00:00 Chowandaalinanika RAYA 350.1.13.10 ity of [facility] 4.2.7.2.686 Shawn as [id number] [place] 443780 [place] 2022-08-08 2022-08-08 Telephone VIKTORIA Betancourt 1.2.840.114 [id number] Univers 00:00:00 00:00:00 Chockalinanika RAYA 350.1.13.10 ity of [facility] 4.2.7.2.686 Shawn as [id number] [address] 2022-08-03 2022-08-03 Outpatient R HARINI BETANCOURT [facility] [id number] Univers 11:21:58 23:59:00 HARINI BETANCOURT ity [facility] 2022-08-03 2022-08-03 [facility] VIKTORIA Betancourt 1.2.840.114 [id number] Univers 11:00:00 23:59:00 Encounter Choelgin RAYA 350.1.13.10 ity of [facility] 4.2.7.2.686 Shawn as [id number] [place] 443784 [place] 2022-08-03 2022-08-03 Orders Doctor TRENT 1.2.840.114 [id number] Univers 00:00:00 00:00:00 Only Unassigned, RAYA 350.1.13.10 ity of [place] [facility] 4.2.7.2.686 Shawn as [id number] [place] [address] Branch 2022-07-14 2022-07-14 Outpatient R ASIA, CHOELGINNathalia [facility] [id number] Univers 16:30:12 23:59:00 HARINI BETANCOURT ity [facility] 2022-07-14 2022-07-14 [facility] VIKTORIA Betancourt 1.2.840.114 [id number] Univers 16:30:12 23:59:00 Encounter Chowandaalinanika RAYA 350.1.13.10 ity of [facility] 4.2.7.2.[id number] [facility] 844 [address] 2022-07-14 2022-07-14 Telephone VIKTORIA Betancourt 1.2.840.114 [id number] Univers 00:00:00 00:00:00 [place] RAYA 350.1.13.10 ity of [facility] 4.2.7.2.[id number] [facility] 8[address] 2022-07-07 2022-07-07 Orders Doctor TRENT 1.2.840.114 [id number] Univers 00:00:00 00:00:00 Only Unassigned, RAYA 350.1.13.10 ity of [place] [facility] 4.2.7.2.[id number] [facility] 009 Branch 2022-06-27 2022-06-27 Transition ROSE Macias 1.2.840.114 [id number] Univers 00:00:00 00:00:00 of Care Jamil Lilli SHEPHERD 350.1.13.10 ity of [place]2.7.[place] [place] [id number] [facility] 403 Branch 2022-06-20 2022-06-[address] [facility] [id number] Univers 13:17:00 13:00:00 ACACIA ity of [facility] 2022-06-20 2022-06-25 Hospital Srinath Cohen 1.2.840.1 [id number] Univers 13:17:00 13:00:00 Encounter Acacia Del Toro RAYA 350.1.13. 10 ity of [facility] 4.2.7.2.[address] [place] [id number] [facility] 100 Branch 2022-06-24 2022-06-24 Surgery VIKTORIA Betancourt 1.2.840.114 [id number] Univers 08:35:00 09:20:00 Chockalinanika RAYA 350.1.13.10 ity of [facility] 4.2.7.2.[id number] [facility] 8[address] 2021-05-10 2021-05-10 Nurse Therapy, Kevin Manley Covid [facility] 1.2. 840.114 [id number] Univers 19:27:33 20:27:33 Visit Unknown, [facility] Health 350.1.13.10 ity [facility] 4.2.7.2.686 Shawn as Terrell?Blea [id number] [address] Office [facility] 2021-05-10 2021-05-10 Outpatient R ARTHUR, [facility] [id number] Univers 19:30:00 19:30:00 ATTENDING ity [facility] 2021-05-09 2021-05-09 Telephone TRENT Tariq 1.2.238.882 [id number] Univers 00:00:00 00:00:00 Gessica P RAYA 350.1.13.10 ity [facility] 4.2.7.2.[id number] [facility] 0[address] [place] 2021-05-07 2021-05-07 Laboratory Only, Ang Db Test [facility] 1.2.8 40.114 [id number] Univers 17:11:44 17:31:44 Only Pavan, Jud [email or web address] 350.1.13.10 ity of [place] 4.2.7.2.686 Shawn as Terrell?Blea [id number] [address] 2021-05-07 2021-05-07 Outpatient R PAVAN [facility] [id number] Univers 17:15:00 17:15:00 JUD ity [facility] 2021-05-07 2021-05-07 Outpatient R PAVAN [facility] [id number] Univers 16:20:00 16:20:00 JUD ity [facility] 2021-05-07 2021-05-07 Orders Doctor NEWMAN 1.2.840.114 [id number] Univers 00:00:00 00:00:00 Only Unassigned, RAYA 350.1.13.10 ity of [place] [facility] 4.2.7.2.[id number] [facility] [address] [place] 2018-04-03 2018-04-05 Phone nullFlavo MARIELLE [id number] Memoria 20:41:00 04:59:59 Message r Neurosurger 07 l y [facility] 2018-03-28 2018-03-30 Phone nullFlavo MNA [id number] Memoria 15:42:00 04:59:59 Message r Neurosurger 06 l y [facility] 2018-03-26 2018-03-28 Phone nullFlavo MNA [id number] Memoria 16:02:00 04:59:59 Message r Neurosurger 05 l y [facility] 2018-03-22 2018-03-22 Ambulatory nullFlavo MNA [id number] Memoria 17:15:00 17:15:00 Pre-Reg r Neurosurger 01 l y [facility] 2018-03-19 2018-03-21 Phone nullFlavo MNA [id number] Memoria 14:29:00 04:59:59 Message r Neurosurger 04 l y [facility] 2018-03-15 2018-03-17 Phone nullFlavo MNA [id number] Memoria 21:01:00 04:59:59 Message r Neurosurger 03 l y [facility] 2018-03-07 2018-03-09 Phone nullFlavo MNA [id number] Memoria 16:18:00 04:59:59 Message r Neurosurger 02 l y [facility] 2018-03-01 2018-03-03 Phone nullFlavo MNA [id number] Memoria 16:12:00 04:59:59 Message r Neurosurger 01 l y [facility] 2018-03-01 2018-03-03 Phone nullFlavo MNA [id number] Memoria 14:43:00 04:59:59 Message r Neurosurger 00 l y [facility] 2018-03-01 2018-03-01 Ambulatory nullFlavo MNA [id number] Memoria 16:15:00 16:15:00 Pre-Reg r Neurosurger 00 l y [facility] 2018-02-19 2018-02-27 Inpatient nullFlavo [facility] [id number] Memoria 07:05:00 21:19:00 [facility] 00 [facility] 2018-02-05 2018-02-13 Inpatient nullFlavo [facility] [id number] Memoria 22:15:00 16:22:00 [facility] 48 [facility] Results Test Description Test Time Test Comments Results Result Comments Source POCT GLUCOSE (AUTOMATED) 2022-11-01 17:45:48 Test Item Value Reference Range Interpretation Comme nts POCT GLU (test code = 1809247323) 377 mg/dL 70-110 H Lab Interpretation (test code = 72355-5) [facility] 14:03:36 Test Item Value Reference Range Interpretation Comments POCT GLU (test code = 0584753284) 218 mg/dL 70-110 H Lab Interpretation (test code = Abnormal 29615-2) [facility]2022-11-01 02:05:30 Test Item Value Reference Range Interpretation Comments POCT GLU (test code = 4156084340) 195 mg/dL 70-110 H Lab Interpretation (test code = Abnormal 96789-1) [facility]2022-10-31 22:18:04 Test Item Value Reference Range Interpretation Comments POCT GLU (test code = 8683626065) 200 mg/dL 70-110 H Lab Interpretation (test code = Abnormal 52611-5) [facility] 17:40:15 Test Item Value Reference Range Interpretation Comments POCT GLU (test code = 6192329549) 231 mg/dL 70-110 H Lab Interpretation (test code = Abnormal 38018-8) [facility] 14:36:10 Test Item Value Reference Range Interpretation Comments POCT GLU (test code = 9822096659) 199 mg/dL 70-110 H Lab Interpretation (test code = Abnormal 77216-0) [facility] 03:28:00 Test Item Value Reference Range Interpretation Comments POCT GLU (test code = 2863676756) 198 mg/dL 70-110 H Lab Interpretation (test code = Abnormal 94169-7) [facility]30 17:40:57 Test Item Value Reference Range Interpretation Comments POCT GLU (test code = 7118728592) 275 mg/dL 70-110 H Lab Interpretation (test code = Abnormal 34726-3) [facility]28 Test Item Value Reference Range Interpretation Comments POCT GLU (test code = 8696879963) 191 mg/dL 70-110 H Lab Interpretation (test code = Abnormal 82147-9) [facility] WITHOUT [id number] 11:10:09 Test Item Value Reference Range Interpretation Comments WBC (test code = 6690-2) 7.95 See_Comment [A utomated message] The system [employer] generated this result transmit timur reference range : 4.30 - 11.10 10*3/?L. The reference range was not used to interpret this result as normal/abnormal . RBC (test code = 789-8) 3.22 See_Comment L [Au tomated message] The system [employer] generated this result transmit timur reference range : 3.93 - 5.25 10* 6/?L. The reference r fernando was not used to interpret this result as normal/abnormal . HGB (test code = 718-7) 9.1 g/dL 11.6-15.0 L HCT (test code = 4544-3) 27.4 % 35.7-45.2 L MCH (test code = 785-6) 28.3 pg 25.9-32.8 MCV (test code = 787-2) 85.1 fL 80.6-95.5 MCHC (test code = 786-4) 33.2 g/dL 31.6-35.1 PLT (test code = 777-3) 277 See_Comment [Au tomated message] The system [employer] generated this result transmit timur reference range : 166 - 358 10*3/?L. The reference range was not used to interpret this result as normal/abnormal . MPV (test code = 8.4 fL 9.5-12.9 L 11569-6) RDW-CV (test code = 13.3 % 12.0-15.5 788-0) RDW-SD (test code = 41.0 fL 39.0-49.9 64966-7) NRBC x10^3 (test code = See_Comment [Au tomated message] 7764936551) The system [employer] generated this result transmit timur reference range : 10*3/?L. The reference range was not used to interpret this result as normal/abnormal . NRBC/100 WBC (test code 0.0 See_Comment [Au tomated message] = 6769326080) The system [facility] generated this result transmit timur reference range : 0.0 - 10.0 /100 WBC s. The reference r fernando was not used to interpret this result as normal/abnormal . IPF % (test code = 6754356245) Lab Interpretation (test Abnormal code = 67338-4) [facility] GLUCOSE (AUTOMATED)2022-10-30 02:05:21 Test Item Value Reference Range Interpretation Comments POCT GLU (test code = 7950256381) 256 mg/dL 70-110 H Lab Interpretation (test code = Abnormal 25085-2) [facility] GLUCOSE (AUTOMATED)2022-10-29 22:52:51 Test Item Value Reference Range Interpretation Comments POCT GLU (test code = 8528437546) 193 mg/dL 70-110 H Lab Interpretation (test code = Abnormal 49896-8) [facility] GLUCOSE (AUTOMATED)2022-10-29 18:00:29 Test Item Value Reference Range Interpretation Comments POCT GLU (test code = 4840761980) 328 mg/dL 70-110 H Lab Interpretation (test code = Abnormal 17098-0) [facility] GLUCOSE (AUTOMATED)2022-10-29 14:03:49 Test Item Value Reference Range Interpretation Comments POCT GLU (test code = 7164131646) 214 mg/dL 70-110 H Lab Interpretation (test code = Abnormal 00877-7) [facility] GLUCOSE (AUTOMATED)2022-10-29 02:04:31 Test Item Value Reference Range Interpretation Comments POCT GLU (test code = 240 mg/dL 70-110 H Notifi ed Provider [id number]) Lab Interpretation (test Abnormal code = 79855-9) [facility] GLUCOSE (AUTOMATED)2022-10-28 23:29:03 Test Item Value Reference Range Interpretation Comments POCT GLU (test code = 4744213214) 227 mg/dL 70-110 H Lab Interpretation (test code = Abnormal 90038-3) [facility] GLUCOSE (AUTOMATED)2022-10-28 18:26:14 Test Item Value Reference Range Interpretation Comments POCT GLU (test code = 0118847335) 241 mg/dL 70-110 H Lab Interpretation (test code = Abnormal 92643-9) [facility]-28 14:37:46 Test Item Value Reference Range Interpretation Comments POCT GLU (test code = 1110553678) 190 mg/dL 70-110 H Lab Interpretation (test code = Abnormal 58048-8) [facility] METABOLIC PANEL (NA, K, CL, CO2, GLUCOSE, BUN, CREATININE, CA)2022-10-28 11:33:48 Test Item Value Reference Range Interpretation Comments NA (test code = 128 mmol/L 135-145 L 1734443207) K (test code = 4.1 mmol/L 3.5-5.0 1224639661) CL (test code = 99 mmol/L 98-108 2638218543) CO2 TOTAL (test code = 24 mmol/L 23-31 2519756412) AGAP (test code = 5 2-16 8454542539) BUN (test code = 15 mg/dL 7-23 5254379037) GLUCOSE (test code = 169 mg/dL 70-110 H 9241168324) CREATININE (test code = 0.55 mg/dL 0.50-1.04 6509839059) CALCIUM (test code = 8.1 mg/dL 8.6-10.6 L 9561628128) eGFR (test code = 105.0 mL/min/1.73m2 6238292110) WINDY (test code = WINDY) Association of [...] tests). Lab Interpretation Abnormal (test code = 70924-7) [facility] WITH [id number] 10:48:02 Test Item Value Reference Range Interpretation Comments WBC (test code = 6.28 See_Comment [Automated 2290-2) message] The sy stem which generated this result transmitted reference range : 4.30 - 11.10 10*3/?L. The reference range was not used to interpret this result as normal/abnormal . RBC (test code = 2.94 See_Comment L [Automated 179-8) message] The sy stem which generated this result transmitted reference range : 3.93 - 5.25 10*6/?L. The reference range was not used to interpret this result as normal/abnormal . HGB (test code = 8.3 g/dL 11.6-15.0 L 718-7) HCT (test code = 24.9 % 35.7-45.2 L 4544-3) MCV (test code = 84.7 fL 80.6-95.5 787-2) MCH (test code = 28.2 pg 25.9-32.8 785-6) MCHC (test code = 33.3 g/dL 31.6-35.1 786-4) RDW-SD (test code = 40.9 fL 39.0-49.9 47476-6) RDW-CV (test code = 13.6 % 12.0-15.5 788-0) PLT (test code = 287 See_Comment [Automated 777-3) message] The sy stem which generated this result transmitted reference range : 166 - 358 10*3/ ?L. The reference r fernando was not used to interpret this result as normal/abnormal . MPV (test code = 9.3 fL 9.5-12.9 L 82952-8) NRBC/100 WBC (test 0.0 See_Comment [Automat ed code = 0846439712) message] The system which generated this result transmitted reference range : 0.0 - 10.0 /100 WBCs. The refer ence range was not u sed to interpret th is result as normal/abnormal . NRBC x10^3 (test code See_Comment [Auto mated = 6478201530) message] The s ystem which generated this result transmitted reference range : 10*3/?L. The reference range was not used to interpret this result as normal/abnormal . GRAN MAT (NEUT) % 55.1 % (test code = 770-8) IMM GRAN % (test code 0.50 % = 6452154828) LYMPH % (test code = 31.2 % 736-9) MONO % (test code = 11.6 % 5905-5) EOS % (test code = 1.4 % 713-8) BASO % (test code = 0.2 % 706-2) GRAN MAT x10^3(ANC) 3.46 10*3/uL 1.88-7.09 (test code = 8610215503) IMM GRAN x10^3 (test 0.03 10*3/uL 0.00-0.06 code = 4522747734) LYMPH x10^3 (test code 1.96 10*3/uL 1.32-3.29 = 731-0) MONO x10^3 (test code 0.73 10*3/uL 0.33-0.92 = 742-7) EOS x10^3 (test code = 0.09 10*3/uL 0.03-0.39 711-2) BASO x10^3 (test code 0.01-0.07 = 704-7) Lab Interpretation Abnormal (test code = 95576-8) [facility] GLUCOSE (AUTOMATED)2022-10-28 02:11:22 Test Item Value Reference Range Interpretation Comments POCT GLU (test code = 4337789079) 268 mg/dL 70-110 H Lab Interpretation (test code = Abnormal 65294-5) [facility] GLUCOSE (AUTOMATED)2022-10-27 22:40:13 Test Item Value Reference Range Interpretation Comments POCT GLU (test code = 1512638492) 151 mg/dL 70-110 H Lab Interpretation (test code = Abnormal 82572-4) [facility] GLUCOSE (AUTOMATED)2022-10-27 17:35:16 Test Item Value Reference Range Interpretation Comments POCT GLU (test code = 3639694865) 239 mg/dL 70-110 H Lab Interpretation (test code = Abnormal 53994-9) [facility] GLUCOSE (AUTOMATED)2022-10-27 14:42:18 Test Item Value Reference Range Interpretation Comments POCT GLU (test code = 8179918102) 221 mg/dL 70-110 H Lab Interpretation (test code = Abnormal 77884-8) [facility] GLUCOSE (AUTOMATED)2022-10-27 03:32:29 Test Item Value Reference Range Interpretation Comments POCT GLU (test code = 258 mg/dL 70-110 H Notifi ed Provider [id number]) Lab Interpretation (test Abnormal code = 90243-7) [facility] GLUCOSE (AUTOMATED)2022-10-26 22:32:49 Test Item Value Reference Range Interpretation Comments POCT GLU (test code = 176 mg/dL 70-110 H Notifi ed Provider [id number]) Lab Interpretation (test Abnormal code = 33795-6) [facility] GLUCOSE (AUTOMATED)2022-10-26 17:34:42 Test Item Value Reference Range Interpretation Comments POCT GLU (test code = 307 mg/dL 70-110 H Notifi ed Provider [id number]) Lab Interpretation (test Abnormal code = 24291-9) [facility] GLUCOSE (AUTOMATED)2022-10-26 13:30:00 Test Item Value Reference Range Interpretation Comments POCT GLU (test code = 239 mg/dL 70-110 H Notifi ed Provider [id number]) Lab Interpretation (test Abnormal code = 73282-5) [facility] GLUCOSE (AUTOMATED)2022-10-26 03:40:06 Test Item Value Reference Range Interpretation Comments POCT GLU (test code = 225 mg/dL 70-110 H Notifi ed Provider [id number]) Lab Interpretation (test Abnormal code = 16437-4) [facility] GLUCOSE (AUTOMATED)2022-10-26 01:50:16 Test Item Value Reference Range Interpretation Comments POCT GLU (test code = 3452857750) 240 mg/dL 70-110 H Lab Interpretation (test code = Abnormal 16747-3) [facility] GLUCOSE (AUTOMATED)2022-10-25 22:16:54 Test Item Value Reference Range Interpretation Comments POCT GLU (test code = 6870328624) 188 mg/dL 70-110 H Lab Interpretation (test code = Abnormal 68374-2) [facility] GLUCOSE (AUTOMATED)2022-10-25 17:34:44 Test Item Value Reference Range Interpretation Comments POCT GLU (test code = 176 mg/dL 70-110 H Notifi ed Provider [id number]) Lab Interpretation (test Abnormal code = 02456-0) [facility] GLUCOSE (AUTOMATED)2022-10-25 14:26:21 Test Item Value Reference Range Interpretation Comments POCT GLU (test code = 2234840540) 205 mg/dL 70-110 H Lab Interpretation (test code = Abnormal 49281-9) [facility] METABOLIC PANEL (NA, K, CL, CO2, GLUCOSE, BUN, CREATININE, CA)2022-10-25 10:29:58 Test Item Value Reference Range Interpretation Comments NA (test code = 127 mmol/L 135-145 L 2271745964) K (test code = 3.8 mmol/L 3.5-5.0 8228337162) CL (test code = 90 mmol/L 98-108 L 1819428120) CO2 TOTAL (test code = 29 mmol/L 23-31 9786549716) AGAP (test code = 8 2-16 2814386486) BUN (test code = 21 mg/dL 7-23 7870600728) GLUCOSE (test code = 203 mg/dL 70-110 H 3681439311) CREATININE (test code = 0.68 mg/dL 0.50-1.04 1425565692) CALCIUM (test code = 8.8 mg/dL 8.6-10.6 4715174642) eGFR (test code = 82.2 mL/min/1.73m2 4096572298) WINDY (test code = WINDY) Association of [...] tests). Lab Interpretation Abnormal (test code = 69645-5) [facility] 10:25[facility]19 Test Item Value Reference Range Interpretation Comments APTT Patient (test code 63 See_Comment H [Au tomated message] = 1743-2) The system [employer] generated this result transmitted ref erence range: 26 - 36 Seconds. The reference range was not used to int erpret this result as normal/abnormal . Lab Interpretation (test Abnormal code = 32766-8) [facility] 10:25:19 Test Item Value Reference Range Interpretation Comments Fibrinogen (test code = 2801853071) 574 mg/dL 167-453 H Lab Interpretation (test code = Abnormal 03184-4) [facility] / [id number] 10:25:18 Test Item Value Reference Range Interpretation Comments PROTIME PATIENT (test 11.9 See_Comment [Auto mated message] code = 5964-2) The system wh ich generated this result transmitted ref erence range: 10.1 - 1 2.6 Seconds. The re ference range was not u sed to interpret this result as normal/abnor mal. INR (test code = 6301-6) 1.1 Nor mal INR <1.1; Warfarin Therap eutic range 2.0 to 3. 0 or 2.5 to 3.5, dep ending upon the indica tions. Lab Interpretation (test Normal code = 55727-0) [facility] with [id number] 10:19:38 Test Item Value Reference Range Interpretation Comments WBC (test code = 9.89 See_Comment [Automated 1390-2) message] The sy stem which generated this result transmitted reference range : 4.30 - 11.10 10*3/?L. The reference range was not used to interpret this result as normal/abnormal . RBC (test code = 3.78 See_Comment L [Automated 079-8) message] The sy stem which generated this result transmitted reference range : 3.93 - 5.25 10*6/?L. The reference range was not used to interpret this result as normal/abnormal . HGB (test code = 10.7 g/dL 11.6-15.0 L 718-7) HCT (test code = 31.2 % 35.7-45.2 L 4544-3) MCV (test code = 82.5 fL 80.6-95.5 787-2) MCH (test code = 28.3 pg 25.9-32.8 785-6) MCHC (test code = 34.3 g/dL 31.6-35.1 786-4) RDW-SD (test code = 39.8 fL 39.0-49.9 28036-1) RDW-CV (test code = 13.3 % 12.0-15.5 788-0) PLT (test code = 333 See_Comment [Automated 777-3) message] The sy stem which generated this result transmitted reference range : 166 - 358 10*3/ ?L. The reference r fernando was not used to interpret this result as normal/abnormal . MPV (test code = 9.3 fL 9.5-12.9 L 34473-6) NRBC/100 WBC (test 0.0 See_Comment [Automat ed code = 8549000614) message] The system which generated this result transmitted reference range : 0.0 - 10.0 /100 WBCs. The refer ence range was not u sed to interpret th is result as normal/abnormal . NRBC x10^3 (test code See_Comment [Auto mated = 2115480973) message] The s ystem which generated this result transmitted reference range : 10*3/?L. The reference range was not used to interpret this result as normal/abnormal . GRAN MAT (NEUT) % 70.8 % (test code = 770-8) IMM GRAN % (test code 0.40 % = 4650503884) LYMPH % (test code = 18.2 % 736-9) MONO % (test code = 10.1 % 5905-5) EOS % (test code = 0.3 % 713-8) BASO % (test code = 0.2 % 706-2) GRAN MAT x10^3(ANC) 7.00 10*3/uL 1.88-7.09 (test code = 2503889276) IMM GRAN x10^3 (test 0.04 10*3/uL 0.00-0.06 code = 9320988897) LYMPH x10^3 (test code 1.80 10*3/uL 1.32-3.29 = 731-0) MONO x10^3 (test code 1.00 10*3/uL 0.33-0.92 H = 742-7) EOS x10^3 (test code = 0.03 10*3/uL 0.03-0.39 711-2) BASO x10^3 (test code 0.01-0.07 = 704-7) Lab Interpretation Abnormal (test code = 38539-6) [facility] 02:02:22 Test Item Value Reference Range Interpretation Comments MAGNESIUM (test code = 0574344747) 1.6 mg/dL 1.7-2.4 L Lab Interpretation (test code = Abnormal 44752-2) [facility] [id number] 00:49:15 Test Item Value Reference Range Interpretation Comments NT-proBNP (test code = 444 pg/mL <=450 6786041862) WINDY (test code = WINDY) Biotin has been reported to cause a negative bias, interpret results relative to patient's use of biotin. Lab Interpretation (test Normal code = 48631-6) [facility] [id number] 00:41:33 Test Item Value Reference Range Interpretation Comments TROPONIN I (test code = 0.006 ng/mL <=0.034 8614075517) WINDY (test code = WINDY) Reference (Normal) Range (defined by the 99th percentile reference limit): <= 0.034 ng/mL Note: Cardiac troponin begins to rise 3-4 hours after the onset of ischemia. Repeat in 4-6 hours if the sample was drawn within 3-4 hours of the onset of the symptom and found normal. Diagnosis of myocardial injury is made with acute changes in cTn concentrations with at least one serial sample above the 99th percentile upper reference limit (URL), taken together with the patient's clinical presentation. Biotin has been reported to cause a negative bias, interpret results relative to patient's use of biotin. Lab Interpretation Normal (test code = 75895-9) [facility]. METABOLIC PANEL (34812)2022-10-25 00:41:13 Test Item Value Reference Range Interpretation Comments NA (test code = 122 mmol/L 135-145 L 5079281922) K (test code = 4.1 mmol/L 3.5-5.0 2990949130) CL (test code = 88 mmol/L 98-108 L 4124240982) CO2 TOTAL (test code = 23 mmol/L 23-31 0701302331) AGAP (test code = 11 2-16 3936478312) BUN (test code = 25 mg/dL 7-23 H 3639975827) GLUCOSE (test code = 206 mg/dL 70-110 H 0712453666) CREATININE (test code = 0.77 mg/dL 0.50-1.04 0403242085) TOTAL BILI (test code = 0.5 mg/dL 0.1-1.8 5681897395) CALCIUM (test code = 9.0 mg/dL 8.6-10.6 4371940434) T PROTEIN (test code = 6.8 g/dL 6.3-8.2 1707971292) ALBUMIN (test code = 4.0 g/dL 3.5-5.0 1066063059) ALK PHOS (test code = 87 U/L 34-122 4954140256) ALTv (test code = 16 U/L 5-35 2-6) AST(SGOT) (test code = 20 U/L 13-40 1439922313) eGFR (test code = 71.2 mL/min/1.73m2 3041129502) WINDY (test code = WINDY) Association of [...] tests). Lab Interpretation Abnormal (test code = 45710-1) [facility] 00:40:33 Test Item Value Reference Range Interpretation Comments LIPASE (test code = 7223576431) 39 U/L 0-220 Lab Interpretation (test code = Normal 33687-5) [facility]PROTHROMBIN [facility] / [id number] 00:26:52 Test Item Value Reference Range Interpretation Comments PROTIME PATIENT (test 13.1 See_Comment [Auto mated message] code = 5964-2) The system wh ich generated this result transmitted ref erence range: 12.0 - 1 4.7 Seconds. The re ference range was not u sed to interpret this result as normal/abnor mal. INR (test code = 6301-6) 1.0 Nor mal INR <1.1; Warfarin Therap eutic range 2.0 to 3. 0 or 2.5 to 3.5, dep ending upon the indica tions. Lab Interpretation (test Normal code = 78988-2) [facility] WITH [id number] 00:19:53 Test Item Value Reference Range Interpretation Comments WBC (test code = 12.65 See_Comment H [Automated 7090-2) message] The sy stem which generated this result transmitted reference range : 4.30 - 11.10 10*3/?L. The reference range was not used to interpret this result as normal/abnormal . RBC (test code = 3.77 See_Comment L [Automated 789-8) message] The sy stem which generated this result transmitted reference range : 3.93 - 5.25 10*6/?L. The reference range was not used to interpret this result as normal/abnormal . HGB (test code = 10.5 g/dL 11.6-15.0 L 718-7) HCT (test code = 30.8 % 35.7-45.2 L 4544-3) MCV (test code = 81.7 fL 80.6-95.5 787-2) MCH (test code = 27.9 pg 25.9-32.8 785-6) MCHC (test code = 34.1 g/dL 31.6-35.1 786-4) RDW-SD (test code = 39.7 fL 39.0-49.9 06808-4) RDW-CV (test code = 13.3 % 12.0-15.5 788-0) PLT (test code = 379 See_Comment H [Automated 777-3) message] The sy stem which generated this result transmitted reference range : 166 - 358 10*3/ ?L. The reference r fernando was not used to interpret this result as normal/abnormal . MPV (test code = 9.2 fL 9.5-12.9 L 60210-1) NRBC/100 WBC (test 0.0 See_Comment [Automat ed code = 4964932547) message] The system which generated this result transmitted reference range : 0.0 - 10.0 /100 WBCs. The refer ence range was not u sed to interpret th is result as normal/abnormal . NRBC x10^3 (test code See_Comment [Auto mated = 7192628706) message] The s ystem which generated this result transmitted reference range : 10*3/?L. The reference range was not used to interpret this result as normal/abnormal . GRAN MAT (NEUT) % 70.3 % (test code = 770-8) IMM GRAN % (test code 0.80 % = 4797664011) LYMPH % (test code = 18.7 % 736-9) MONO % (test code = 9.8 % 5905-5) EOS % (test code = 0.2 % 713-8) BASO % (test code = 0.2 % 706-2) GRAN MAT x10^3(ANC) 8.90 10*3/uL 1.88-7.09 H (test code = 3833173389) IMM GRAN x10^3 (test 0.10 10*3/uL 0.00-0.06 H code = 8315962260) LYMPH x10^3 (test code 2.36 10*3/uL 1.32-3.29 = 731-0) MONO x10^3 (test code 1.24 10*3/uL 0.33-0.92 H = 742-7) EOS x10^3 (test code = 0.03 10*3/uL 0.03-0.39 711-2) BASO x10^3 (test code 0.01-0.07 = 704-7) Lab Interpretation Abnormal (test code = 85843-9) [facility] GLUCOSE (AUTOMATED)2022-10-08 15:06:32 Test Item Value Reference Range Interpretation Comments POCT GLU (test code = 9368256281) 162 mg/dL 70-110 H Lab Interpretation (test code = Abnormal 20388-9) [facility] GLUCOSE (AUTOMATED)2022-10-08 15:06:32 Test Item Value Reference Range Interpretation Comments POCT GLU (test code = 6772595500) 162 mg/dL 70-110 H Lab Interpretation (test code = Abnormal 51447-4) [facility] GLUCOSE (AUTOMATED)2022-10-08 03:55:19 Test Item Value Reference Range Interpretation Comments POCT GLU (test code = 8185258709) 279 mg/dL 70-110 H Lab Interpretation (test code = Abnormal 98732-8) [facility] GLUCOSE (AUTOMATED)2022-10-08 03:55:19 Test Item Value Reference Range Interpretation Comments POCT GLU (test code = 5348974215) 279 mg/dL 70-110 H Lab Interpretation (test code = Abnormal 28821-5) [facility] GLUCOSE (AUTOMATED)2022-10-08 03:11:05 Test Item Value Reference Range Interpretation Comments POCT GLU (test code = 1982810085) 322 mg/dL 70-110 H Lab Interpretation (test code = Abnormal 82034-7) [facility] GLUCOSE (AUTOMATED)2022-10-08 03:11:05 Test Item Value Reference Range Interpretation Comments POCT GLU (test code = 3345863805) 322 mg/dL 70-110 H Lab Interpretation (test code = Abnormal 98265-4) [facility] / [id number] 17:14:10 Test Item Value Reference Range Interpretation [...] tions. Lab Interpretation (test Normal code = 00836-6) [facility] WITH [id number] 17:07:07 Test Item Value Reference Range Interpretation [...] RDW-SD (test code = 47.4 fL 39.0-49.9 35239-8) RDW-CV (test code = 15.6 % 12.0-15.5 H 788-0) PLT (test code = See_Comment [Automated 777-3) message] The sy stem which generated this result transmitted reference range : 166 - 358 10*3/ ?L. The reference r fernando was not used to interpret this result as normal/abnormal . MPV (test code = 9.8 fL 9.5-12.9 07766-1) NRBC/100 WBC (test See_Comment [Automat ed code = 0097544733) message] The system which generated this result transmitted reference range : 0.0 - 10.0 /100 WBCs. The refer ence range was not u sed to interpret th is result as normal/abnormal . NRBC x10^3 (test code See_Comment [Auto mated = 9839484104) message] The s ystem which generated this result transmitted reference range : 10*3/?L. The reference range was not used to interpret this result as normal/abnormal . GRAN MAT (NEUT) % 54.5 % (test code = 770-8) IMM GRAN % (test code 0.40 % = 8181108190) LYMPH % (test code = 36.8 % 736-9) MONO % (test code = 7.0 % 5905-5) EOS % (test code = 1.1 % 713-8) BASO % (test code = 0.2 % 706-2) GRAN MAT x10^3(ANC) 2.96 10*3/uL 1.88-7.09 (test code = 8221617331) IMM GRAN x10^3 (test 0.00-0.06 code = 4320774699) LYMPH x10^3 (test code 2.00 10*3/uL 1.32-3.29 = 731-0) MONO x10^3 (test code 0.38 10*3/uL 0.33-0.92 = 742-7) EOS x10^3 (test code = 0.06 10*3/uL 0.03-0.39 711-2) BASO x10^3 (test code 0.01-0.07 = 704-7) Lab Interpretation Abnormal (test code = 11222-4) [facility], [id number] 20:47:27 Test Item Value Reference Range Interpretation Comments METANEPH (test <0.10 0.00-0.49 code = 40779-4) NORMETNEPH (test 0.83 nmol/L 0.00-0.89 code = 18068-7) METAPF INT (test See Note INTERPRETIV E code = 94745-7) INFORMATION: Metanephrines, Plasma (Free) This nacho t [...] for cl inical purposes.Perfor med By: LUCINDA Arrington [address] [place], [place] [address]K aboratory Director: Juan Espinosa MD, PhD [facility] GLUCOSE (AUTOMATED)2022-06-25 17:12:53 Test Item Value Reference Range Interpretation Comments POCT GLU (test code = 4004088527) 200 mg/dL 70-110 H Lab Interpretation (test code = Abnormal 44271-5) [facility] GLUCOSE (AUTOMATED)2022-06-25 17:12:53 Test Item Value Reference Range Interpretation Comments POCT GLU (test code = 8307967308) 200 mg/dL 70-110 H Lab Interpretation (test code = Abnormal 04411-3) [facility] GLUCOSE (AUTOMATED)2022-06-25 14:20:12 Test Item Value Reference Range Interpretation Comments POCT GLU (test code = 3282341353) 171 mg/dL 70-110 H Lab Interpretation (test code = Abnormal 99557-1) [facility] GLUCOSE (AUTOMATED)2022-06-25 14:20:12 Test Item Value Reference Range Interpretation Comments POCT GLU (test code = 5444562323) 171 mg/dL 70-110 H Lab Interpretation (test code = Abnormal 57904-4) [facility] GLUCOSE (AUTOMATED)2022-06-25 01:30:55 Test Item Value Reference Range Interpretation Comments POCT GLU (test code = 7291543398) 207 mg/dL 70-110 H Lab Interpretation (test code = Abnormal 26374-7) [facility] GLUCOSE (AUTOMATED)2022-06-25 01:30:55 Test Item Value Reference Range Interpretation Comments POCT GLU (test code = 3569716758) 207 mg/dL 70-110 H Lab Interpretation (test code = Abnormal 33813-3) [facility] GLUCOSE (AUTOMATED)2022-06-24 22:26:40 Test Item Value Reference Range Interpretation Comments POCT GLU (test code = 8884136199) 195 mg/dL 70-110 H Lab Interpretation (test code = Abnormal 34471-3) [facility] GLUCOSE (AUTOMATED)2022-06-24 22:26:40 Test Item Value Reference Range Interpretation Comments POCT GLU (test code = 0843667065) 195 mg/dL 70-110 H Lab Interpretation (test code = Abnormal 82468-8) [facility] GLUCOSE (AUTOMATED)2022-06-24 18:07:03 Test Item Value Reference Range Interpretation Comments POCT GLU (test code = 9413932486) 376 mg/dL 70-110 H Lab Interpretation (test code = Abnormal 02523-9) [facility] GLUCOSE (AUTOMATED)2022-06-24 18:07:03 Test Item Value Reference Range Interpretation Comments POCT GLU (test code = 6001523714) 376 mg/dL 70-110 H Lab Interpretation (test code = Abnormal 37561-6) [facility] 17[facility]:35 Test Item Value Reference Range Interpretation Comments MAGNESIUM (test code = 1902691412) 1.9 mg/dL 1.7-2.4 Lab Interpretation (test code = Normal 94095-8) [facility] METABOLIC PANEL (NA, K, CL, CO2, GLUCOSE, BUN, CREATININE, CA)2022-06-24 17:45:35 Test Item Value Reference Range Interpretation Comments NA (test code = 137 mmol/L 135-145 8219823570) K (test code = 3.3 mmol/L 3.5-5 L 8476757625) CL (test code = 101 mmol/L 98-108 2348827790) CO2 TOTAL (test code = 25 mmol/L 23-31 4948867571) AGAP (test code = 2-16 6819491455) BUN (test code = 17 mg/dL 7-23 3731698101) GLUCOSE (test code = 264 mg/dL 70-110 H 7025114833) CREATININE (test code = 0.94 mg/dL 0.5-1.04 0863580702) CALCIUM (test code = 9.1 mg/dL 8.6-10.6 6778777297) eGFR (test code = mL/min/1.73m2 6405230492) WINDY (test code = WINDY) Association of [...] tests). Lab Interpretation Abnormal (test code = 28431-0) [facility] 17:45:35 Test Item Value Reference Range Interpretation Comments MAGNESIUM (test code = 3225895618) 1.9 mg/dL 1.7-2.4 Lab Interpretation (test code = Normal 30562-5) [facility] (NA, K, CL, CO2, GLUCOSE, BUN, CREATININE, CA)2022-06-24 17:45:35 Test Item Value Reference Range Interpretation Comments NA (test code = 137 mmol/L 135-145 2136787414) K (test code = 3.3 mmol/L 3.5-5 L 2333180270) CL (test code = 101 mmol/L 98-108 3262912146) CO2 TOTAL (test code = 25 mmol/L 23-31 9236328856) AGAP (test code = 2-16 8938057759) BUN (test code = 17 mg/dL 7- 1068166797) GLUCOSE (test code = 264 mg/dL 70-110 H 1401822487) CREATININE (test code = 0.94 mg/dL 0.5-1.04 4453567171) CALCIUM (test code = 9.1 mg/dL 8.6-10.6 4299463785) eGFR (test code = mL/min/1.73m2 1212602628) WINDY (test code = WINDY) Association of [...] tests). Lab Interpretation Abnormal (test code = 28364-2) [facility] WITHOUT [id number] 17:37:52 Test Item Value Reference Range Interpretation Comments WBC (test code = 6690-2) See_Comment [A utomated message] The system [employer] generated this result transmit timur reference range : 4.30 - 11.10 10*3/?L. The reference range was not used to interpret this result as normal/abnormal . RBC (test code = 789-8) See_Comment [Au tomated message] The system [employer] generated this result transmit timur reference range [...] 777-3) See_Comment [Au tomated message] The system [employer] generated this result transmit timur reference range : 166 - 358 10*3/?L. The reference range was not used to interpret this result as normal/abnormal . MPV (test code = 9.0 fL 9.5-12.9 L 21898-7) RDW-CV (test code = 16.6 % 12-15.5 H 788-0) RDW-SD (test code = 44.0 fL 39-49.9 26638-6) NRBC x10^3 (test code = See_Comment [Au tomated message] 3074219076) The system [employer] generated this result transmit timur reference range : 10*3/?L. The reference range was not used to interpret this result as normal/abnormal . NRBC/100 WBC (test code See_Comment [Au tomated message] = 9909612365) The system [facility] generated this result transmit timur reference range : 0.0 - 10.0 /100 WBC s. The reference r fernando was not used to interpret this result as normal/abnormal . IPF % (test code = 9240524130) Lab Interpretation (test Abnormal code = 72180-8) [facility] WITHOUT [id number] 17:37:52 Test Item Value Reference Range Interpretation Comments WBC (test code = 6690-2) See_Comment [A utomated message] The system [facility] generated this result transmit timur reference range : 4.30 - 11.10 10*3/?L. The reference range was not used to interpret this result as normal/abnormal . RBC (test code = 789-8) See_Comment [Au tomated message] The system [facility] generated this result transmit timur reference range [...] 777-3) See_Comment [Au tomated message] The system [facility] generated this result transmit timur reference range : 166 - 358 10*3/?L. The reference range was not used to interpret this result as normal/abnormal . MPV (test code = 9.0 fL 9.5-12.9 L 08715-7) RDW-CV (test code = 16.6 % 12-15.5 H 788-0) RDW-SD (test code = 44.0 fL 39-49.9 41295-3) NRBC x10^3 (test code = See_Comment [Au tomated message] 5926478311) The system [facility] generated this result transmit timur reference range : 10*3/?L. The reference range was not used to interpret this result as normal/abnormal . NRBC/100 WBC (test code See_Comment [Au tomated message] = 6345931455) The system [facility] generated this result transmit timur reference range : 0.0 - 10.0 /100 WBC s. The reference r fernando was not used to interpret this result as normal/abnormal . IPF % (test code = 2553909950) Lab Interpretation (test Abnormal code = 45235-8) [facility] GLUCOSE (AUTOMATED)2022-06-24 13:05:03 Test Item Value Reference Range Interpretation Comments POCT GLU (test code = 4640092553) 175 mg/dL 70-110 H Lab Interpretation (test code = Abnormal 24158-9) [facility] GLUCOSE (AUTOMATED)2022-06-24 13:05:03 Test Item Value Reference Range Interpretation Comments POCT GLU (test code = 1383880935) 175 mg/dL 70-110 H Lab Interpretation (test code = Abnormal 01813-2) [facility] GLUCOSE (AUTOMATED)2022-06-24 03:59:23 Test Item Value Reference Range Interpretation Comments POCT GLU (test code = 5572622262) 200 mg/dL 70-110 H Lab Interpretation (test code = Abnormal 13761-3) [facility] GLUCOSE (AUTOMATED)2022-06-24 03:59:23 Test Item Value Reference Range Interpretation Comments POCT GLU (test code = 9480960835) 200 mg/dL 70-110 H Lab Interpretation (test code = Abnormal 17288-6) [facility] GLUCOSE (AUTOMATED)2022-06-23 22:39:44 Test Item Value Reference Range Interpretation Comments POCT GLU (test code = 6830917456) 210 mg/dL 70-110 H Lab Interpretation (test code = Abnormal 54756-8) [facility] GLUCOSE (AUTOMATED)2022-06-23 22:39:44 Test Item Value Reference Range Interpretation Comments POCT GLU (test code = 2222989416) 210 mg/dL 70-110 H Lab Interpretation (test code = Abnormal 80599-2) [facility] GLUCOSE (AUTOMATED)2022-06-23 17:10:04 Test Item Value Reference Range Interpretation Comments POCT GLU (test code = 7755083523) 189 mg/dL 70-110 H Lab Interpretation (test code = Abnormal 11242-5) [facility] GLUCOSE (AUTOMATED)2022-06-23 17:10:04 Test Item Value Reference Range Interpretation Comments POCT GLU (test code = 3599308579) 189 mg/dL 70-110 H Lab Interpretation (test code = Abnormal 25783-7) [facility] GLUCOSE (AUTOMATED)2022-06-23 12:33:02 Test Item Value Reference Range Interpretation Comments POCT GLU (test code = 1668261835) 193 mg/dL 70-110 H Lab Interpretation (test code = Abnormal 76579-1) [facility] GLUCOSE (AUTOMATED)2022-06-23 12:33:02 Test Item Value Reference Range Interpretation Comments POCT GLU (test code = 5606134234) 193 mg/dL 70-110 H Lab Interpretation (test code = Abnormal 35925-9) [facility] GLUCOSE (AUTOMATED)2022-06-23 02:42:00 Test Item Value Reference Range Interpretation Comments POCT GLU (test code = 9944469535) 166 mg/dL 70-110 H Lab Interpretation (test code = Abnormal 72082-5) [facility] GLUCOSE (AUTOMATED)2022-06-23 02:42:00 Test Item Value Reference Range Interpretation Comments POCT GLU (test code = 2996220287) 166 mg/dL 70-110 H Lab Interpretation (test code = Abnormal 11202-5) [facility] [id number] 23:14:43 Test Item Value Reference Range Interpretation Comments PHOSPHORUS (test code = 3.1 mg/dL 2.5-5 Slig ht hemolysis 7452013358) Lab Interpretation (test Normal code = 37924-0) [facility] [id number] 23:14:43 Test Item Value Reference Range Interpretation Comments PHOSPHORUS (test code = 3.1 mg/dL 2.5-5 Slig ht hemolysis 4874252489) Lab Interpretation (test Normal code = 44935-0) [facility] GLUCOSE (AUTOMATED)2022-06-22 22:01:14 Test Item Value Reference Range Interpretation Comments POCT GLU (test code = 4575121372) 216 mg/dL 70-110 H Lab Interpretation (test code = Abnormal 75013-4) [facility] GLUCOSE (AUTOMATED)2022-06-22 22:01:14 Test Item Value Reference Range Interpretation Comments POCT GLU (test code = 9816302367) 216 mg/dL 70-110 H Lab Interpretation (test code = Abnormal 79872-1) [facility] GLUCOSE (AUTOMATED)2022-06-22 16:56:03 Test Item Value Reference Range Interpretation Comments POCT GLU (test code = 2948123635) 170 mg/dL 70-110 H Lab Interpretation (test code = Abnormal 74313-2) [facility] GLUCOSE (AUTOMATED)2022-06-22 16:56:03 Test Item Value Reference Range Interpretation Comments POCT GLU (test code = 6667451633) 170 mg/dL 70-110 H Lab Interpretation (test code = Abnormal 18096-3) [facility] GLUCOSE (AUTOMATED)2022-06-22 13:15:17 Test Item Value Reference Range Interpretation Comments POCT GLU (test code = 9066649746) 186 mg/dL 70-110 H Lab Interpretation (test code = Abnormal 76948-3) [facility] GLUCOSE (AUTOMATED)2022-06-22 13:15:17 Test Item Value Reference Range Interpretation Comments POCT GLU (test code = 5227662917) 186 mg/dL 70-110 H Lab Interpretation (test code = Abnormal 27319-9) [facility] GLUCOSE (AUTOMATED)2022-06-22 00:55:28 Test Item Value Reference Range Interpretation Comments POCT GLU (test code = 3501590163) 201 mg/dL 70-110 H Lab Interpretation (test code = Abnormal 25534-8) [facility] GLUCOSE (AUTOMATED)2022-06-22 00:55:28 Test Item Value Reference Range Interpretation Comments POCT GLU (test code = 5945574588) 201 mg/dL 70-110 H Lab Interpretation (test code = Abnormal 46226-0) [facility] 22:48:56 Test Item Value Reference Range Interpretation Comments Height (test code = in 2882851990) Weight (test code = lbs 7250784380) Systolic BP (test code = mmHg 2691840067) Diastolic BP (test code mmHg = 5452827491) Heart Rate (test code = bpm 6978438968) LVOT stroke volume (test 79.70 cm3 code = 0865499687) EF(Teich) (test code = 56.30 % 4733983707) LVIDD (test code = 4.60 cm 2154830312) LVIDS (test code = 3.30 cm 7173724334) Left Ventricular End 43.5 mL Systolic Volume by Teichholz Method (test code = 0897184) Left Ventricular End 99.6 mL Diastolic Volume by Teichholz Method (test code = 0615107) IVS (test code = 1.19 cm 5728700173) LVPWD (test code = 1.08 cm 5689016932) LVOT diameter (test code 2.05 cm = 3986970127) LVOT area (test code = 3.30 cm2 4700585437) FS (test code = 29 % 7992534153) MV Peak E Tian (test code 84.6 cm/s = 0384379019) MV Peak A Tian (test code 110.3 cm/s = 9538708318) E/A ratio (test code = ratio 9057040355) E wave decelartion time 0.25 s (test code = 9181018893) MV E/e' septal (test 4.0 cm/s code = 5074220792) LA Volume Index (BP) 36.7 mL/m2 (test code = 2217713247) LA volume (BP) (test 65.4 mL code = 9048742841) LVOT peak tian (test code 100.1 cm/s = 0795885782) LVOT mn grad (test code mmHg = 0520461712) BSA (test code = 1.78 m2 7059152751) LA size (test code = 3.4 cm 1382825143) LAV(MOD-sp2) (test code 61.30 mL = 7144535617) LAV(MOD-sp4) (test code 58.90 mL = 4783136852) Tapse (test code = 2.48 cm 5243306783) AV LVOT peak gradient mmHg (test code = 4836422358) LVOT peak VTI (test code 24.2 cm = 6520242091) LV V1 mean (test code = 64.80 cm/s 5697497493) MV Prop V (test code = 31.70 cm/s 1151488587) Ao root diam (test code 3.40 cm = 6759016918) Aortic root (test code = 3.4 cm 5661839686) Ao root annulus (test 3.4 cm code = 1220879066) PW (test code = 1.08 cm 0.6-1.3 6808298311) EF - 2D (test code = 56.30 % 27944391) Interventricular Septum 1.19 cm Diastolic Thickness by 2D (test code = 4355831) Left Ventricular Cardiac 4.8 L/min Output (test code = 6127386) Aortic HR (test code = BPM 7454351081) Aortic valve mean 86.9 cm/s velocity (test code = 4264303159) Ao peak tian (test code = 153.7 cm/s 5158071213) Ao VTI (test code = 33.7 cm 6918401720) AV area by cont VTI 2.4 cm2 (test code = 2597111981) AV area peak tian (test 2.2 cm2 code = 0050723869) Ao max PG (test code = 9.40 mm[Hg] 7635716519) AV peak gradient (test mmHg code = 5942792329) AV valve area (test code 2.37 cm2 = 8238348528) AV mean gradient (test mmHg code = 4501722541) IVC Diam Exp(MM) (test 1.87 cm code = 7356837772) IVC Diam Ins(MM) (test 0.78 cm code = 9280873342) Radiology Study observation (narrative) (test code = 61029-9) WINDY (test code = WINDY) ?Left?Ventricle: Left [...] enhancing agent used. Patient exhibited sinus bradycardia. [facility] 22:48:56 Test Item Value Reference Range Interpretation Comments Height (test code = in 1289201392) Weight (test code = lbs 3972961269) Systolic BP (test code = mmHg 5000652191) Diastolic BP (test code mmHg = 5114689024) Heart Rate (test code = bpm 7063486367) LVOT stroke volume (test 79.70 cm3 code = 5506559241) EF(Teich) (test code = 56.30 % 0514266430) LVIDD (test code = 4.60 cm 0249196069) LVIDS (test code = 3.30 cm 2418649438) Left Ventricular End 43.5 mL Systolic Volume by Teichholz Method (test code = 5640512) Left Ventricular End 99.6 mL Diastolic Volume by Teichholz Method (test code = 5192815) IVS (test code = 1.19 cm 1235359152) LVPWD (test code = 1.08 cm 3380897046) LVOT diameter (test code 2.05 cm = 1680200892) LVOT area (test code = 3.30 cm2 8917515269) FS (test code = 29 % 4818593641) MV Peak E Tian (test code 84.6 cm/s = 3571631726) MV Peak A Tian (test code 110.3 cm/s = 7584482864) E/A ratio (test code = ratio 6575730606) E wave decelartion time 0.25 s (test code = 8194086442) MV E/e' septal (test 4.0 cm/s code = 5985173102) LA Volume Index (BP) 36.7 mL/m2 (test code = 0280338865) LA volume (BP) (test 65.4 mL code = 7575438110) LVOT peak tian (test code 100.1 cm/s = 8224337962) LVOT mn grad (test code mmHg = 6860146102) BSA (test code = 1.78 m2 9877332039) LA size (test code = 3.4 cm 3028042662) LAV(MOD-sp2) (test code 61.30 mL = 1401835712) LAV(MOD-sp4) (test code 58.90 mL = 9590206242) Tapse (test code = 2.48 cm 5569672914) AV LVOT peak gradient mmHg (test code = 7796342489) LVOT peak VTI (test code 24.2 cm = 5230654015) LV V1 mean (test code = 64.80 cm/s 2865100730) MV Prop V (test code = 31.70 cm/s 6907622785) Ao root diam (test code 3.40 cm = 7819935078) Aortic root (test code = 3.4 cm 7727761759) Ao root annulus (test 3.4 cm code = 8601643070) PW (test code = 1.08 cm 0.6-1.4 5221442111) EF - 2D (test code = 56.30 % 18057025) Interventricular Septum 1.19 cm Diastolic Thickness by 2D (test code = 1550616) Left Ventricular Cardiac 4.8 L/min Output (test code = 0595352) Aortic HR (test code = BPM 6100770876) Aortic valve mean 86.9 cm/s velocity (test code = 1508265989) Ao peak tian (test code = 153.7 cm/s 4193736218) Ao VTI (test code = 33.7 cm 9489729953) AV area by cont VTI 2.4 cm2 (test code = 3329531696) AV area peak tian (test 2.2 cm2 code = 3147754784) Ao max PG (test code = 9.40 mm[Hg] 6465500601) AV peak gradient (test mmHg code = 4610177606) AV valve area (test code 2.37 cm2 = 0057819744) AV mean gradient (test mmHg code = 1963907119) IVC Diam Exp(MM) (test 1.87 cm code = 7999968182) IVC Diam Ins(MM) (test 0.78 cm code = 9851644428) Radiology Study observation (narrative) (test code = 13049-0) WINDY (test code = WINDY) ?Left?Ventricle: Left [...] enhancing agent used. Patient exhibited sinus bradycardia. [facility] GLUCOSE (AUTOMATED)2022-06-21 21:50:29 Test Item Value Reference Range Interpretation Comments POCT GLU (test code = 2325618418) 181 mg/dL 70-110 H Lab Interpretation (test code = Abnormal 07689-8) [facility] GLUCOSE (AUTOMATED)2022-06-21 21:50:29 Test Item Value Reference Range Interpretation Comments POCT GLU (test code = 1756844650) 181 mg/dL 70-110 H Lab Interpretation (test code = Abnormal 10885-6) [facility] GLUCOSE (AUTOMATED)2022-06-21 20:55:06 Test Item Value Reference Range Interpretation Comments POCT GLU (test code = 2117753624) 159 mg/dL 70-110 H Lab Interpretation (test code = Abnormal 20719-9) [facility] GLUCOSE (AUTOMATED)2022-06-21 20:55:06 Test Item Value Reference Range Interpretation Comments POCT GLU (test code = 9196973697) 159 mg/dL 70-110 H Lab Interpretation (test code = Abnormal 69392-1) [facility]-GLUCOSE [id number] 11:32:00 Test Item Value Reference Range Interpretation Comments POC-GLUCOSE METER 235 mg/dL 70-110 H : TESTED A T [facility] 6720 (BEAKER) (test code = [facility], 1538) [address]: [employer] One Reading Teacher/Techni chika ID = [id number] for QUEEN LASSITER POCT-GLUCOSE [id number] 07:37:00 Test Item Value Reference Range Interpretation Comments POC-GLUCOSE METER 190 mg/dL 70-110 H : TESTED A T [facility] 6720 (BEAKER) (test code = [facility], 1538) 34624: [employer] One Reading Teacher/Techni chika ID = [id number] for QUEEN LASSITER CBC W/PLT COUNT & AUTO [id number] 06:10:00 Test Item Value Reference Range Interpretation [...] PERCENT (BEAKER) (test code = 2801) POCT-GLUCOSE [id number] 22:16:00 Test Item Value Reference Range Interpretation Comments POC-GLUCOSE METER 275 mg/dL 70-110 H : TESTED Lilli Mendez [facility] 6720 (BEAKER) (test code = [place], 1538) 33497: [employer] One Reading Teacher/Techni chika ID = [id number] for IDANIA RODRÍGUEZ RODNEYAKSHAT POCT-GLUCOSE [id number] 16:44:00 Test Item Value Reference Range Interpretation Comments POC-GLUCOSE METER 200 mg/dL 70-110 H : TESTED A T [facility] 6720 (BEAKER) (test code = [facility], 153) 83408: Title One Reading Teacher/Techni chika ID = [id number] for QUEEN LASSITER POCT-GLUCOSE [id number] 12:11:00 Test Item Value Reference Range Interpretation Comments POC-GLUCOSE METER 180 mg/dL 70-110 H : TESTED A T [facility] 6720 (BEAKER) (test code = [facility], 153) 42501: [employer] One Reading Teacher/Techni chika ID = [id number] for SHAYY ALBRIGHT POCT-GLUCOSE [id number] 08:17:00 Test Item Value Reference Range Interpretation Comments POC-GLUCOSE METER 158 mg/dL 70-110 H : TESTED A T [facility] 6720 (BEAKER) (test code = [facility], 153) 11752: Title One Reading Teacher/Techni chika ID = [id number] for NW CATHERINE, SHAYY CBC W/PLT COUNT & AUTO [id number] 04:14:00 Test Item Value Reference Range Interpretation [...] PERCENT (BEAKER) (test code = 2801) POCT-GLUCOSE [id number] 16:12:00 Test Item Value Reference Range Interpretation Comments POC-GLUCOSE METER 233 mg/dL 70-110 H : TESTED A T [facility] 6720 (BEAKER) (test code = [facility], 1538) 97574: Title One Reading Teacher/Techni chika ID = [id number] for SHAYY ALBRIGHT POCT-GLUCOSE [id number] 12:02:00 Test Item Value Reference Range Interpretation Comments POC-GLUCOSE METER 190 mg/dL 70-110 H : TESTED A T [facility] 6720 (BEAKER) (test code = [facility], 1538) 93150: [employer] One Reading Teacher/Techni chika ID = [id number] for SHAYY ALBRIGHT STOOL CULTURE + SHIGA [id number] 09:19:00 Test Item Value Reference Range Interpretation Comments CULTURE (BEAKER) No Salmonella, Shigella (test code = 1095) or Campylobacter isolated POCT-GLUCOSE [id number] 07:46:00 Test Item Value Reference Range Interpretation Comments POC-GLUCOSE METER 174 mg/dL 70-110 H : TESTED A T [facility] 6720 (BEAKER) (test code = [place], 1538) 90488: Title One Reading Teacher/Techni chika ID = [id number] for SHAYY ALBRIGHT CBC W/PLT COUNT & AUTO [id number] 06:53:00 Test Item Value Reference Range Interpretation [...] 0-1 PERCENT (BEAKER) (test code = 2801) BASIC METABOLIC [id number] 06:20:00 Test Item Value Reference Range Interpretation [...] S NOT APPLICABLE FOR DIALYSIS PATIEN TS. [employer] Reading Teacher ID - LATA WHEPATIC FUNCTION [id number] 06:20:00 Test Item Value Reference Range Interpretation [...] Specimen slightly (test code = 347) hemolyzed [employer] Reading Teacher ID - LATA [id number] 06:20:00 Test Item Value Reference Range Interpretation Comments MAGNESIUM (BEAKER) 1.7 mg/dL 1.6-2.6 Specimen slightly (test code = 627) hemolyzed [employer] Reading Teacher ID Suman GUIDO WPOCT-GLUCOSE [id number] 21:46:00 Test Item Value Reference Range Interpretation Comments POC-GLUCOSE METER 181 mg/dL 70-110 H : TESTED A T [facility] 6720 (BEAKER) (test code = DINA Ortega [facility], 1538) 07886: Title One Reading Teacher/Techni chika ID = [id number] for ALPHONSO GUPTAU CT, BRAIN, WITHOUT [id number] 18:11:00FINAL REPORT CT, BRAIN, WITHOUT CONTRAST INDICATION: [...] recommended for further characterization. Signed: Annmarie Burch MDReport Verified Date/Time: 03/26/2020 18:11:57 POCT-GLUCOSE [id number] 17:31:00 Test Item Value Reference Range Interpretation Comments POC-GLUCOSE METER 209 mg/dL 70-110 H : Notified RN/MD: [facility] (test code = TESTED AT [place] [id number] 1538) [facility], [address]: Title One Reading Teacher/Techni chika ID = [id number] for MEERA LEMOS SHIGA TOXIN [id number] 15:19:00 Test Item Value Reference Range Interpretation Comments SHIGA TOXIN 1 (BEAKER) (test Not detected Not detected code = 2177) SHIGA TOXIN 2 (BEAKER) (test Not detected Not detected code = 2179) POCT-GLUCOSE [id number] 11:53:00 Test Item Value Reference Range Interpretation Comments POC-GLUCOSE METER 159 mg/dL 70-110 H : [facility] (BEAKER) (test code = [facility], 1538) [address]: Title One Reading Teacher/Techni chika ID = [id number] for SANDRA HOLLIS STOOL PATH [id number] 11:36:00 Test Item Value Reference Range Interpretation Comments PATHOGEN EXAM CHARGED ([facility]) (test Done code = 2381) POCT-GLUCOSE [id number] 07:11:00 Test Item Value Reference Range Interpretation Comments POC-GLUCOSE METER 146 mg/dL 70-110 H : [facility] ([facility]) (test code = [facility], 1538) [address]63: Title One Reading Teacher/Techni chika ID = [id number] for MLIY GROVE [id number] 06:04:00 Test Item Value Reference Range Interpretation Comments MAGNESIUM (BEAKER) (test code = 1.9 mg/dL 1.6-2.6 627) Title One Reading Teacher ID - PIAYA LBASIC METABOLIC [id number] 06:04:00 Test Item Value Reference Range Interpretation [...] S NOT APPLICABLE FOR DIALYSIS PATIEN TS. Title One Reading Teacher ID - PIAYA LHEPATIC FUNCTION [id number] 06:04:00 Test Item Value Reference Range Interpretation [...] (test code = 15 U/L 6-55 347) Title One Reading Teacher ID - PIAYA LCBC W/PLT COUNT & AUTO [id number] 05:20:00 Test Item Value Reference Range Interpretation [...] PERCENT (BEAKER) (test code = 2801) POCT-GLUCOSE [id number] 21:12:00 Test Item Value Reference Range Interpretation Comments POC-GLUCOSE METER 154 mg/dL 70-110 H : TESTED A T [facility] 6720 (BEAKER) (test code = [place], 1538) [address]: Title One Reading Teacher/Techni chika ID = [id number] for JEREMY GUPTA POCT-GLUCOSE [id number] 17:43:00 Test Item Value Reference Range Interpretation Comments POC-GLUCOSE METER 152 mg/dL 70-110 H : TESTED Lilli T [facility] 6720 ([place]I) (test code = [place], 1538) [address]: Title One Reading Teacher/Techni chika ID = [id number] for [place] SARS-COV2/RT-PCR ([facility])2020-03-25 13:40:00 Test Item Value Reference Range Interpretation Comments SARS-COV2/RT-PCR (test code = Negative Not Detected, Negative [id number]) SARS-COV-[address] [facility] (test code = 9722735) Negative result for this test determines that [...] of the Act.Fact Sheet for Healthcare Prov iders:https://www.[employer]/sites/default/files/product/documents/Fact_Sheet_HC _Ypdsxiejo_Nfpu_VRKO-PtF-5.pdfFact Sheet for Healthcare Patients:https://www.[employer]/sites/default/files/product/docume nts/Chpp_Dmecu_Zyjpqlpk_Stie_QJEK-WqD-5.pdfPerforming Laboratory:[facility], [place] [address]GLZT-QLSVTJH METER 2020-03-25 11:24:00 Test Item Value Reference Range Interpretation Comments POC-GLUCOSE METER 165 mg/dL 70-110 H : TESTED A T [facility] 6720 ([facility]) (test code = DINA Ortega [facility], 1538) [address]: Title One Reading Teacher/Techni chika ID = [id number] for SANDRA HOLLIS TSH/FREE T4 IF [id number] 10:59:00 Test Item Value Reference Range Interpretation Comments THYROID STIMULATING HORMONE 0.622 uIU/mL 0.350-4.940 (BEAKER) (test code = 772) Title One Reading Teacher ID - WAGNER LHEMOGLOBIN [id number] 10:59:00 Test Item Value Reference Range Interpretation Comments HEMOGLOBIN A1C (BEAKER) (test code = 6.9 % 4.3-6.1 H 368) TROPONIN [id number] 10:50:00 Test Item Value Reference Range Interpretation [...] failure, acidosis, acute neurological disease, and persistent tachyarrhythmia.Title One Reading Teacher ID - WAGNER LBASIC METABOLIC [id number] 10:42:00 Test Item Value Reference Range Interpretation [...] S NOT APPLICABLE FOR DIALYSIS PATIEN TS. Title One Reading Teacher ID - WAGNER LHEPATIC FUNCTION [id number] 10:42:00 Test Item Value Reference Range Interpretation [...] (test code = 10 U/L 6-55 347) Title One Reading Teacher ID - WAGNER [id number] 10:41:00 Test Item Value Reference Range Interpretation Comments PHOSPHORUS (BEAKER) (test code = 3.2 mg/dL 2.3-4.7 604) Title One Reading Teacher ID - WAGNER [id number] 10:41:00 Test Item Value Reference Range Interpretation Comments MAGNESIUM (BEAKER) (test code = 2.0 mg/dL 1.6-2.6 627) Title One Reading Teacher ID - WAGNER PLUNKETTOCT-GLUCOSE [id number] 09:10:00 Test Item Value Reference Range Interpretation Comments POC-GLUCOSE METER 116 mg/dL 70-110 H : TESTED A T [facility] 6720 (BEAKER) (test code = [place], 1538) [address]: Title One Reading Teacher/Techni chika ID = [id number] for LANCE TRACEY RAD, CHEST, 1 VIEW, NON [id number] 07:49:00Reason for exam:->chest painShould this be performed at the bedside?->YesFINAL REPORT CLINICAL HISTORY: chest pain TECHNIQUE: 1 view of the chest. COMPAR NIEVES: None IMPRESSION: There are linear bandlike opacities in the bilateral mid and lower lungs. There are no significant effusions. The cardiomediastinal silhouette is magnified by technique. Signed: Keturah Gillespie MDReport Verified Date/Time: 03/25/2020 07:49:59 Reading Location: [facility] Radiology Reading Room C. DIFFICILE GDH [id number] 06:54:00 Test Item Value Reference Range Interpretation Comments CDT TOXIN (test code Negative Negative = [id number]) CDT GDH ANTIGEN (test Negative Negative No ind ication of code = [id number]) Clostridi um difficile infection and n o colonization. Discontinue ent perez isolation and t herapy. Testing performed by [employer] Rapid Cassette Assay. For GDH, published sensitivity of the assay is 98.7% compared to cytotoxicity testing. For Toxin AB, published sensitivity is 87.8% and specificity 99.4% compared to cytotoxicity testing.Verification of kit performance was done by the [facility] MicrobiologyLab prior to clinical use.URINALYSIS WITH MICROSCOPIC IF [id number] 06:35:00 Test Item Value Reference Range Interpretation [...] = 463) SOURCE(BEAKER) (test code = 2795) Title One Reading Teacher ID - [auto]Title One Reading Teacher ID - techURINALYSIS [id number] 06:35:00 Test Item Value Reference Range Interpretation Comments RBC UA (BEAKER) (test code = 519) 3 /HPF WBC UA (BEAKER) (test code = 520) 11 /HPF BACTERIA (BEAKER) (test code = 517) Rare SQUAMOUS EPITHELIAL (BEAKER) (test 1 /HPF code = 516) Title One Reading Teacher ID - techPOCT-GLUCOSE [id number] 05:08:00 Test Item Value Reference Range Interpretation Comments POC-GLUCOSE METER 128 mg/dL 70-110 H : TESTED A T [facility] 6720 (BEAKER) (test code = [place], 1538) [address]: Title One Reading Teacher/Techni chika ID = [id number] for As Meena beckett CHEM [id number] 12:00:00 Test Item Value Reference Range Interpretation Comments Calcium Lvl (test code = Calcium Lvl) 8.7 8.5-10.5 [facility] AlektoCHEM [id number] 12:00:00 Test Item Value Reference Range Interpretation Comments Glucose Lvl (test code = Glucose Lvl) 201 70-99 [facility] AlektoCHEM [id number] 12:00:00 Test Item Value Reference Range Interpretation Comments BUN (test code = BUN) 19 7-22 [facility] AlektoCHEM [id number] 12:00:00 Test Item Value Reference Range Interpretation Comments Creatinine Lvl (test code = Creatinine 0.61 0.50-1.40 Lvl) [facility] Widbook [id number] 12:00:00 Test Item Value Reference Range Interpretation Comments Sodium Lvl (test code = Sodium Lvl) 127 135-145 [facility]2018-06-19 12:00:00 Test Item Value Reference Range Interpretation Comments Chloride Lvl (test code = Chloride Lvl) 89 95-109 [facility]2018-06-19 12:00:00 Test Item Value Reference Range Interpretation Comments Potassium Lvl (test code = Potassium 4.5 3.5-5.1 Lvl) [facility]2018-06-19 12:00:00 Test Item Value Reference Range Interpretation Comments eGFR (test code = eGFR) 86 [facility]2018-06-19 12:00:00 Test Item Value Reference Range Interpretation Comments AGAP (test code = AGAP) 9.5 10.0-20.0 [facility]2018-06-19 12:00:00 Test Item Value Reference Range Interpretation Comments CO2 (test code = CO2) 33 24-32 [facility]2018-06-18 08:31:00 Test Item Value Reference Range Interpretation Comments eGFR (test code = eGFR) 86 [facility]2018-06-18 08:31:00 Test Item Value Reference Range Interpretation Comments BUN (test code = BUN) 18 7-22 [facility]2018-06-18 08:31:00 Test Item Value Reference Range Interpretation Comments Glucose Lvl (test code = Glucose Lvl) 181 70-99 [facility]2018-06-18 08:31:00 Test Item Value Reference Range Interpretation Comments Creatinine Lvl (test code = Creatinine 0.61 0.50-1.40 Lvl) [facility]2018-06-18 08:31:00 Test Item Value Reference Range Interpretation Comments Calcium Lvl (test code = Calcium Lvl) 8.5 8.5-10.5 [facility]2018-06-18 08:31:00 Test Item Value Reference Range Interpretation Comments CO2 (test code = CO2) 34 24-32 [facility]2018-06-18 08:31:00 Test Item Value Reference Range Interpretation Comments Chloride Lvl (test code = Chloride Lvl) 88 95-109 [facility]2018-06-18 08:31:00 Test Item Value Reference Range Interpretation Comments Potassium Lvl (test code = Potassium 4.3 3.5-5.1 Lvl) [facility]2018-06-18 08:31:00 Test Item Value Reference Range Interpretation Comments Sodium Lvl (test code = Sodium Lvl) 131 135-145 [facility]2018-06-18 08:31:00 Test Item Value Reference Range Interpretation Comments AGAP (test code = AGAP) 13.3 10.0-20.0 [id number] 08:31:00 Test Item Value Reference Range Interpretation Comments Hgb (test code = Hgb) 9.4 12.0-16.0 [facility]iscoAjorjrbCPVCDBJFQT0438-17-73 08:31:00 Test Item Value Reference Range Interpretation Comments RBC (test code = RBC) 3.38 4.20-5.40 [facility] FriscoHyitindGWJBAUPOOT3560-24-14 08:31:00 Test Item Value Reference Range Interpretation Comments WBC (test code = WBC) 8.8 3.7-10.4 [facility] FriscoAugwiugDSVIGYAWHB0290-01-94 08:31:00 Test Item Value Reference Range Interpretation Comments Hct (test code = Hct) 27.7 36.0-48.0 [facility]iscoRnsjqqnPVYTRMJXFV7941-93-82 08:31:00 Test Item Value Reference Range Interpretation Comments MPV (test code = MPV) 8.5 7.4-10.4 [facility] FriscoVmfpahuFHIBZYBIDN4553-59-67 08:31:00 Test Item Value Reference Range Interpretation Comments Platelet (test code = Platelet) 213 133-450 [facility] FriscoKskkhkeHDFSKPCEPP5757-25-30 08:31:00 Test Item Value Reference Range Interpretation Comments RDW (test code = RDW) 15.1 11.5-14.5 [facility] FriscoJuqhalvJIQCTVGVBZ2067-51-55 08:31:00 Test Item Value Reference Range Interpretation Comments MCHC (test code = MCHC) 34.0 32.0-36.0 [facility] FriscoHmgjlmhCMQSFBTZPR7665-49-91 08:31:00 Test Item Value Reference Range Interpretation Comments MCH (test code = MCH) 27.8 pg 27.0-31.0 [facility] FriscoPcejwqqSKGJGDNVXN4965-98-27 08:31:00 Test Item Value Reference Range Interpretation Comments MCV (test code = MCV) 81.8 80.0-98.0 [facility] FriscoCtxmqpeNHYUVNLIJC9024-20-81 08:31:00 Test Item Value Reference Range Interpretation Comments Lymphocytes (test code = Lymphocytes) 11.3 20.0-40.0 [facility] FriscoIubkkwsBUWGREJLER8367-56-04 08:31:00 Test Item Value Reference Range Interpretation Comments Segs (test code = Segs) 81.3 45.0-75.0 [facility] FriscoJnblfjeQWQLOPFCTB0112-31-10 08:31:00 Test Item Value Reference Range Interpretation Comments Basophils (test code = 0.3 See_Comment [Aut omated message] The Basophils) system which ge nerated this result tra nsmitted reference range : <=1.0. The reference r fernando was not used to int erpret this result as normal/abnormal . [facility] FriscoPwygyxpIVFJXTSURW2215-65-79 08:31:00 Test Item Value Reference Range Interpretation Comments Eosinophils (test code = 2.2 See_Comment [A utomated message] The Eosinophils) system which ge nerated this result tra nsmitted reference range : <=4.0. The reference r fernando was not used to int erpret this result as normal/abnormal . [facility] FriscoGyufwelIWDQINRIYD4399-08-57 08:31:00 Test Item Value Reference Range Interpretation Comments Monocytes (test code = Monocytes) 4.9 2.0-12.0 [facility] FriscoEzzcuysBGWVHVOEUE7038-84-14 08:31:00 Test Item Value Reference Range Interpretation Comments Lymphocytes # (test code = Lymphocytes 1.0 1.0-5.5 #) [facility] FriscoInwnzyyTQYUISABRY1379-04-39 08:31:00 Test Item Value Reference Range Interpretation Comments Segs-Bands # (test code = Segs-Bands #) 7.2 1.5-8.1 [facility] FriscoKpbtzybRJAJOWUZDY7199-37-94 08:31:00 Test Item Value Reference Range Interpretation Comments Eosinophils # (test code 0.2 See_Comment [A utomated message] The = Eosinophils #) system ic h generated this result tra nsmitted reference range : <=0.5. The reference r fernando was not used to int erpret this result as normal/abnormal . [facility] FriscoDdvtxvaTJKYXNDWSG4143-48-87 08:31:00 Test Item Value Reference Range Interpretation Comments Monocytes # (test code 0.4 See_Comment [Aut omated message] The = Monocytes #) system which generated this result tra nsmitted reference range : <=0.8. The reference r fernando was not used to int erpret this result as normal/abnormal . [facility] [id number] 06:00:00 Test Item Value Reference Range Interpretation Comments BNP (test code = BNP) 188 [facility]2018-06-17 06:00:00 Test Item Value Reference Range Interpretation Comments Phosphorus (test code = Phosphorus) 2.7 2.5-4.5 [facility]2018-06-17 06:00:00 Test Item Value Reference Range Interpretation Comments Calcium Lvl (test code = Calcium Lvl) 8.8 8.5-10.5 [facility]2018-06-17 06:00:00 Test Item Value Reference Range Interpretation Comments Chloride Lvl (test code = Chloride Lvl) 84 95-109 [facility]2018-06-17 06:00:00 Test Item Value Reference Range Interpretation Comments AGAP (test code = AGAP) 12.4 10.0-20.0 [facility]2018-06-17 06:00:00 Test Item Value Reference Range Interpretation Comments CO2 (test code = CO2) 37 24-32 [facility]2018-06-17 06:00:00 Test Item Value Reference Range Interpretation Comments eGFR (test code = eGFR) 88 [facility]2018-06-17 06:00:00 Test Item Value Reference Range Interpretation Comments Glucose Lvl (test code = Glucose Lvl) 146 70-99 [facility]2018-06-17 06:00:00 Test Item Value Reference Range Interpretation Comments BUN (test code = BUN) 13 7-22 [facility]2018-06-17 06:00:00 Test Item Value Reference Range Interpretation Comments Creatinine Lvl (test code = Creatinine 0.57 0.50-1.40 Lvl) [facility]2018-06-17 06:00:00 Test Item Value Reference Range Interpretation Comments Sodium Lvl (test code = Sodium Lvl) 130 135-145 [facility]2018-06-17 06:00:00 Test Item Value Reference Range Interpretation Comments Potassium Lvl (test code = Potassium 3.4 3.5-5.1 Lvl) [facility]2018-06-17 06:00:00 Test Item Value Reference Range Interpretation Comments Magnesium Lvl (test code = Magnesium 2.0 1.8-2.4 Lvl) [facility]2018-06-16 15:56:00 Test Item Value Reference Range Interpretation Comments U Osmolality (test code = U Osmolality) 311 300-800 [facility]2018-06-16 15:56:00 Test Item Value Reference Range Interpretation Comments U Creatinine (test code = U Creatinine) 10.70 [facility]2018-06-16 15:56:00 Test Item Value Reference Range Interpretation Comments U Sodium (test code = U Sodium) 84 [facility]2018-06-16 15:56:00 Test Item Value Reference Range Interpretation Comments U Potassium (test code = U Potassium) 42.2 [facility]2018-06-16 15:56:00 Test Item Value Reference Range Interpretation Comments U Chloride (test code = U Chloride) 118 [facility]2018-06-16 05:11:00 Test Item Value Reference Range Interpretation Comments Osmolality (test code = Osmolality) 269 280-300 [facility]2018-06-16 05:11:00 Test Item Value Reference Range Interpretation Comments Magnesium Lvl (test code = Magnesium 1.6 1.8-2.4 Lvl) [facility]2018-06-16 05:11:00 Test Item Value Reference Range Interpretation Comments Phosphorus (test code = Phosphorus) 2.3 2.5-4.5 [facility] FriscoOkyqhovWCHULNBTLP3862-51-50 05:11:00 Test Item Value Reference Range Interpretation Comments Segs-Bands # (test code = Segs-Bands #) 6.2 1.5-8.1 [facility] FriscoJtxsrzaEPJIMWAJXB9071-37-18 05:11:00 Test Item Value Reference Range Interpretation Comments Lymphocytes # (test code = Lymphocytes 1.1 1.0-5.5 #) [facility] FriscoRzxejlaDRFZTKQNUM4750-01-99 05:11:00 Test Item Value Reference Range Interpretation Comments Basophils (test code = 0.2 See_Comment [Aut omated message] The Basophils) system which ge nerated this result tra nsmitted reference range : <=1.0. The reference r fernando was not used to int erpret this result as normal/abnormal . [facility] FriscoJcfzxsuNFMOZUNQLF9522-58-12 05:11:00 Test Item Value Reference Range Interpretation Comments Eosinophils (test code = 2.3 See_Comment [A utomated message] The Eosinophils) system which ge nerated this result tra nsmitted reference range : <=4.0. The reference r fernando was not used to int erpret this result as normal/abnormal . [facility] FriscoRbljubyWCAMEZLWRX5293-09-89 05:11:00 Test Item Value Reference Range Interpretation Comments Monocytes (test code = Monocytes) 8.1 2.0-12.0 [facility] FriscoPdioyyrTUYGFHHKMT8023-93-98 05:11:00 Test Item Value Reference Range Interpretation Comments Lymphocytes (test code = Lymphocytes) 13.8 20.0-40.0 [facility] FriscoEyetwdnFTGKUVVEPC2389-58-05 05:11:00 Test Item Value Reference Range Interpretation Comments Segs (test code = Segs) 75.6 45.0-75.0 [facility] FriscoWzxgtkcFIEHHONEYS7792-27-71 05:11:00 Test Item Value Reference Range Interpretation Comments Eosinophils # (test code 0.2 See_Comment [A utomated message] The = Eosinophils #) system whic h generated this result tra nsmitted reference range : <=0.5. The reference r fernando was not used to int erpret this result as normal/abnormal . [facility] FriscoYiftwmwDCJKUFVGKC5704-96-71 05:11:00 Test Item Value Reference Range Interpretation Comments Monocytes # (test code 0.7 See_Comment [Aut omated message] The = Monocytes #) system which generated this result tra nsmitted reference range : <=0.8. The reference r fernando was not used to int erpret this result as normal/abnormal . [facility] FriscoNphhallOXUMJAGGDB1155-81-67 05:11:00 Test Item Value Reference Range Interpretation Comments Platelet (test code = Platelet) 185 133-450 [facility] FriscoUjklzgfBQALSDMABU0758-26-69 05:11:00 Test Item Value Reference Range Interpretation Comments RDW (test code = RDW) 15.0 11.5-14.5 [facility] FriscoMjmpezhJPDVDCXRLF4247-54-89 05:11:00 Test Item Value Reference Range Interpretation Comments MCHC (test code = MCHC) 34.1 32.0-36.0 [facility] FriscoZeatlaiEBJIYACDQL2819-82-79 05:11:00 Test Item Value Reference Range Interpretation Comments MPV (test code = MPV) 8.2 7.4-10.4 [facility] FriscoOraztycHDZVVWTGQE8648-39-96 05:11:00 Test Item Value Reference Range Interpretation Comments MCV (test code = MCV) 81.1 80.0-98.0 [facility] FriscoWvpcxnwKCOYDWSAQG5020-91-30 05:11:00 Test Item Value Reference Range Interpretation Comments MCH (test code = MCH) 27.7 pg 27.0-31.0 [facility] FriscoDzxgdozUUAJIHUQPN9231-82-95 05:11:00 Test Item Value Reference Range Interpretation Comments RBC (test code = RBC) 3.46 4.20-5.40 [facility] FriscoRqnumbfUSVOIYFKKA5058-07-67 05:11:00 Test Item Value Reference Range Interpretation Comments Hct (test code = Hct) 28.1 36.0-48.0 [facility] FriscoEmncreoXPJDQUQPCO7149-89-71 05:11:00 Test Item Value Reference Range Interpretation Comments Hgb (test code = Hgb) 9.6 12.0-16.0 [facility] FriscoSockhkcYDDCMQHWKE5461-26-92 05:11:00 Test Item Value Reference Range Interpretation Comments WBC (test code = WBC) 8.2 3.7-10.4 [facility]2018-06-16 05:11:00 Test Item Value Reference Range Interpretation Comments Ca Ion WB (test code = Ca Ion WB) 1.05 1.05-1.25 [facility]2018-06-16 05:11:00 Test Item Value Reference Range Interpretation Comments Ca Norm WB (test code = Ca Norm WB) 1.12 1.05-1.25 [facility] FriscoKmzhsikDCZXQLZNGG3666-66-88 05:37:00 Test Item Value Reference Range Interpretation Comments Segs (test code = Segs) 84.3 45.0-75.0 [facility] FriscoXgquxazYFULMSKVYT3373-31-07 05:37:00 Test Item Value Reference Range Interpretation Comments Lymphocytes (test code = Lymphocytes) 7.4 20.0-40.0 [facility] FriscoWnufwciOQTORSHBNA1214-24-61 05:37:00 Test Item Value Reference Range Interpretation Comments Eosinophils # (test code 0.1 See_Comment [A utomated message] The = Eosinophils #) system [facility] h generated this result tra nsmitted reference range : <=0.5. The reference r fernando was not used to int erpret this result as normal/abnormal . [facility] FriscoUhhjkakKVXXFVQWZH7461-03-44 05:37:00 Test Item Value Reference Range Interpretation Comments Lymphocytes # (test code = Lymphocytes 0.6 1.0-5.5 #) [facility] FriscoCtlshikDWPJGRKJUV3838-70-37 05:37:00 Test Item Value Reference Range Interpretation Comments Monocytes # (test code 0.5 See_Comment [Aut omated message] The = Monocytes #) system which generated this result tra nsmitted reference range : <=0.8. The reference r fernando was not used to int erpret this result as normal/abnormal . [facility] FriscoMnejfjgRHBADQQTVI6107-15-77 05:37:00 Test Item Value Reference Range Interpretation Comments Monocytes (test code = Monocytes) 6.7 2.0-12.0 [facility] FriscoCdnrwalQFQCBCGHBK3543-93-93 05:37:00 Test Item Value Reference Range Interpretation Comments Eosinophils (test code = 1.4 See_Comment [A utomated message] The Eosinophils) system which ge nerated this result tra nsmitted reference range : <=4.0. The reference r fernando was not used to int erpret this result as normal/abnormal . [facility] FriscoFrruecsZURZQKPFDS6551-03-38 05:37:00 Test Item Value Reference Range Interpretation Comments Basophils (test code = 0.2 See_Comment [Aut omated message] The Basophils) system which ge nerated this result tra nsmitted reference range : <=1.0. The reference r fernando was not used to int erpret this result as normal/abnormal . [facility]iscoJsqmgtzOCCHBDYEFA3572-13-33 05:37:00 Test Item Value Reference Range Interpretation Comments Segs-Bands # (test code = Segs-Bands #) 6.3 1.5-8.1 [facility]is[id number] 05:37:00 Test Item Value Reference Range Interpretation Comments MCV (test code = MCV) 82.1 80.0-98.0 [facility] FriscoLocxubnMGPAOGFUTI2636-87-09 05:37:00 Test Item Value Reference Range Interpretation Comments Hct (test code = Hct) 27.1 36.0-48.0 [facility] [id number] 05:37:00 Test Item Value Reference Range Interpretation Comments MCHC (test code = MCHC) 34.5 32.0-36.0 [facility] FriscoHavcondQRQKBIZDKJ1146-95-60 05:37:00 Test Item Value Reference Range Interpretation Comments MCH (test code = MCH) 28.3 pg 27.0-31.0 [facility] [id number] 05:37:00 Test Item Value Reference Range Interpretation Comments RBC (test code = RBC) 3.29 4.20-5.40 [facility] FriscoSxupugkBQNHJUWZDZ2632-19-74 05:37:00 Test Item Value Reference Range Interpretation Comments WBC (test code = WBC) 7.5 3.7-10.4 [facility] Fris[id number] 05:37:00 Test Item Value Reference Range Interpretation Comments RDW (test code = RDW) 15.1 11.5-14.5 [facility] FriscoJuahgquJRTLETKADU6585-20-44 05:37:00 Test Item Value Reference Range Interpretation Comments Platelet (test code = Platelet) 191 133-450 [facility] FriscoXfkituiCGLRAQKTNW2965-88-13 05:37:00 Test Item Value Reference Range Interpretation Comments MPV (test code = MPV) 7.8 7.4-10.4 [facility] [id number] 05:37:00 Test Item Value Reference Range Interpretation Comments Hgb (test code = Hgb) 9.3 12.0-16.0 [facility] HospitalPARATHYROID [id number] 05:37:00 Test Item Value Reference Range Interpretation Comments Ca Norm WB (test code = Ca Norm WB) 1.08 1.05-1.25 [facility] [id number] 05:37:00 Test Item Value Reference Range Interpretation Comments Ca Ion WB (test code = Ca Ion WB) 1.04 1.05-1.25 [facility]2018-06-14 11:46:00 Test Item Value Reference Range Interpretation Comments A/G Ratio (test code = A/G Ratio) 0.6 1 0.7-1.6 [facility]2018-06-14 11:46:00 Test Item Value Reference Range Interpretation Comments Globulin (test code = Globulin) 3.6 2.7-4.2 [facility] [id number] 11:46:00 Test Item Value Reference Range Interpretation Comments Bili Indirect (test 0.4 See_Comment [Automa timur message] The code = Bili Indirect) system which generated this result tra nsmitted reference range : <=1.0. The reference r fernando was not used to int erpret this result as normal/abnormal . [facility]2018-06-14 11:46:00 Test Item Value Reference Range Interpretation Comments Bili Direct (test code 0.7 See_Comment [Aut omated message] The = Bili Direct) system which generated this result tra nsmitted reference range : <=0.3. The reference r fernando was not used to int erpret this result as jasmyne l/abnormal. [facility]2018-06-14 11:46:00 Test Item Value Reference Range Interpretation Comments Alk Phos (test code = Alk Phos) 276 39-136 [facility]2018-06-14 11:46:00 Test Item Value Reference Range Interpretation Comments AST (test code = AST) 44 See_Comment [Auto mated message] The system which ge nerated this result transmit timur reference range : <=37. The reference range was not used to interpr et this result as jasmyne l/abnormal. [facility]2018-06-14 11:46:00 Test Item Value Reference Range Interpretation Comments ALT (test code = ALT) 54 See_Comment [Auto mated message] The system which ge nerated this result transmit timur reference range : <=65. The reference range was not used to interpr et this result as jasmyne l/abnormal. [facility]2018-06-14 11:46:00 Test Item Value Reference Range Interpretation Comments Albumin Lvl (test code = Albumin Lvl) 2.3 3.5-5.0 [facility]2018-06-14 11:46:00 Test Item Value Reference Range Interpretation Comments Total Protein (test code = Total 5.9 6.4-8.4 Protein) [facility]2018-06-14 11:46:00 Test Item Value Reference Range Interpretation Comments Bili Total (test code = Bili Total) 1.1 0.2-1.3 [facility]ErkyiuiSABXYSIMRASDE1927-07-70 11:46:00 Test Item Value Reference Range Interpretation Comments Aldosterone (test code = no gt See_Comment [A utomated message] The Aldosterone) system which ge nerated this result tra nsmitted reference range : <=30.0. The reference r fernando was not used to int erpret this result as normal/abnormal . [facility] HospitalEzeslofKXUBWRFYPRCRO2812-50-97 11:46:00 Test Item Value Reference Range Interpretation Comments Renin Activity (test code = Renin 0.527 0.167-5.380 Activity) [facility] AND [id number] 11:46:00 Test Item Value Reference Range Interpretation Comments UA Urobilinogen (test code = UA <=1.0 mg/dL 0.1-1.0 Urobilinogen) [facility] AND [id number] 11:46:00 Test Item Value Reference Range Interpretation Comments UA Mucus (test code = UA Mucus) Few /LPF [facility] AND [id number] 11:46:00 Test Item Value Reference Range Interpretation Comments UA Sq Epi (test code = UA Sq Occasional /LPF Epi) [facility] AND [id number] 11:46:00 Test Item Value Reference Range Interpretation Comments UA Nitrite (test code Negative (02/22/18 6:46 = UA Nitrite) AM) [facility] AND [id number] 11:46:00 Test Item Value Reference Range Interpretation Comments UA Hyal Cast (test 1 See_Comment [Automat ed message] The code = UA Hyal Cast) system which generated this result transmit timur reference range : <=2. The reference range was not used to interpr et this result as jasmyne l/abnormal. [facility] AND [id number] 11:46:00 Test Item Value Reference Range Interpretation Comments UA RBC (test code = 1 See_Comment [Automa timur message] The UA RBC) system which ge nerated this result transmit timur reference range : <=2. The reference range was not used to interpr et this result as jasmyne l/abnormal. [facility] AND [id number] 11:46:00 Test Item Value Reference Range Interpretation Comments UA Leuk Est (test Negative (02/22/18 6:46 code = UA Leuk Est) AM) [facility] AND [id number] 11:46:00 Test Item Value Reference Range Interpretation Comments UA WBC (test code = 3 See_Comment [Automa timur message] The UA WBC) system which ge nerated this result transmit timur reference range : <=5. The reference range was not used to interpr et this result as jasmyne l/abnormal. [facility] AND [id number] 11:46:00 Test Item Value Reference Range Interpretation Comments UA Turbidity (test code Slight *ABN*(02/22/18 = UA Turbidity) 6:46 AM) [facility] AND [id number] 11:46:00 Test Item Value Reference Range Interpretation Comments UA Color (test code = Yellow *NA*(02/22/18 UA Color) 6:46 AM) [facility] AND [id number] 11:46:00 Test Item Value Reference Range Interpretation Comments UA pH (test code = UA pH) 6.0 1 5.0-8.0 [facility] AND [id number] 11:46:00 Test Item Value Reference Range Interpretation Comments UA Ketones (test code = UA Negative mg/dL Ketones) [facility] AND [id number] 11:46:00 Test Item Value Reference Range Interpretation Comments UA Protein (test code = UA Protein) 20 mg/dL [facility] AND [id number] 11:46:00 Test Item Value Reference Range Interpretation Comments UA Spec Grav (test code = UA Spec 1.011 1 Grav) [facility] AND [id number] 11:46:00 Test Item Value Reference Range Interpretation Comments UA Glucose (test code = UA Glucose) 70 mg/dL [facility] AND [id number] 11:46:00 Test Item Value Reference Range Interpretation Comments UA Bili (test code = Negative *NA*(02/22/18 UA Bili) 6:46 AM) [facility] AND [id number] 11:46:00 Test Item Value Reference Range Interpretation Comments UA Blood (test code = Negative (02/22/18 6:46 UA Blood) AM) [facility]2018-06-14 11:46:00 Test Item Value Reference Range Interpretation Comments U Creatinine (test code = U Creatinine) 22.10 [facility] [id number] 11:46:00 Test Item Value Reference Range Interpretation Comments U Chloride (test code = U Chloride) 155 [facility]2018-06-14 11:46:00 Test Item Value Reference Range Interpretation Comments U Potassium (test code = U Potassium) 61.1 [facility]2018-06-14 11:46:00 Test Item Value Reference Range Interpretation Comments U Sodium (test code = U Sodium) 98 [facility]2018-06-14 04:44:00 Test Item Value Reference Range Interpretation Comments Magnesium Lvl (test code = Magnesium 2.4 1.8-2.4 Lvl) [facility]2018-06-14 04:44:00 Test Item Value Reference Range Interpretation Comments Phosphorus (test code = Phosphorus) 2.6 2.5-4.5 [facility] [id number] 04:44:00 Test Item Value Reference Range Interpretation Comments Ca Ion WB (test code = Ca Ion WB) 1.06 1.05-1.25 [facility]2018-06-14 04:44:00 Test Item Value Reference Range Interpretation Comments Ca Norm WB (test code = Ca Norm WB) 1.09 1.05-1.25 [facility]2018-06-13 22:33:00 Test Item Value Reference Range Interpretation Comments Lactic Acid Lvl (test code = Lactic 1.4 0.5-2.2 Acid Lvl) [facility]2018-06-13 20:03:00 Test Item Value Reference Range Interpretation Comments U Osmolality (test code = U Osmolality) 360 300-800 [facility]2018-06-13 20:03:00 Test Item Value Reference Range Interpretation Comments U Sodium (test code = U Sodium) 88 [facility]2018-06-13 15:44:00 Test Item Value Reference Range Interpretation Comments Albumin Lvl (test code = Albumin Lvl) 2.6 3.5-5.0 [facility]2018-06-13 15:44:00 Test Item Value Reference Range Interpretation Comments Total Protein (test code = Total 6.7 6.4-8.4 Protein) [facility]2018-06-13 15:44:00 Test Item Value Reference Range Interpretation Comments B/C Ratio (test code = B/C Ratio) 12 1 6-25 [facility]2018-06-13 15:44:00 Test Item Value Reference Range Interpretation Comments ALT (test code = ALT) 67 See_Comment [Auto mated message] The system which ge nerated this result transmit timur reference range : <=65. The reference range was not used to interpr et this result as jasmyne l/abnormal. [facility] [employer] [id number] 15:44:00 Test Item Value Reference Range Interpretation Comments Bili Total (test code = Bili Total) 1.2 0.2-1.3 [facility] [employer] [id number] 15:44:00 Test Item Value Reference Range Interpretation Comments AST (test code = AST) 77 See_Comment [Auto mated message] The system which ge nerated this result transmit timur reference range : <=37. The reference range was not used to interpr et this result as jasmyne l/abnormal. [facility] [employer] [id number] 15:44:00 Test Item Value Reference Range Interpretation Comments A/G Ratio (test code = A/G Ratio) 0.6 1 0.7-1.6 [facility] [employer] [id number] 15:44:00 Test Item Value Reference Range Interpretation Comments Alk Phos (test code = Alk Phos) 269 39-136 [facility] [employer] [id number] 15:44:00 Test Item Value Reference Range Interpretation Comments Globulin (test code = Globulin) 4.1 2.7-4.2 [facility] [employer] [id number] 15:44:00 Test Item Value Reference Range Interpretation Comments Osmolality (test code = Osmolality) 270 280-300 [facility] [id number] 08:30:00 Test Item Value Reference Range Interpretation Comments Hgb A1C (test code = Hgb A1C) 6.5 [facility] AlektoCARDIAC [id number] 06:01:00 Test Item Value Reference Range Interpretation Comments proBNP (test code = 4235 See_Comment [Automa timur message] The proBNP) system which ge nerated this result tra nsmitted reference range : <=450. The reference r fernando was not used to int erpret this result as jasmyne l/abnormal. [facility] [employer] [id number] 06:01:00 Test Item Value Reference Range Interpretation Comments BNP (test code = BNP) 345 [facility] [employer] [id number] 06:01:00 Test Item Value Reference Range Interpretation Comments Lactic Acid Lvl (test code = Lactic 1.7 0.5-2.2 Acid Lvl) [facility]2018-06-13 06:01:00 Test Item Value Reference Range Interpretation Comments Procalcitonin Lvl (test 0.41 See_Comment [Au tomated message] code = Procalcitonin Lvl) Th e system which generated this result transmitted ref erence range: <=0.10. The reference range was not used to interpr et this result as normal/abnormal . [facility]2018-06-12 11:57:00 Test Item Value Reference Range Interpretation Comments Bili Indirect (test 0.4 See_Comment [Automa timur message] The code = Bili Indirect) system which generated this result tra nsmitted reference range : <=1.0. The reference r fernando was not used to int erpret this result as normal/abnormal . [facility]2018-06-12 11:57:00 Test Item Value Reference Range Interpretation Comments Bili Total (test code = Bili Total) 0.7 0.2-1.3 [facility]2018-06-12 11:57:00 Test Item Value Reference Range Interpretation Comments Bili Direct (test code 0.3 See_Comment [Aut omated message] The = Bili Direct) system which generated this result tra nsmitted reference range : <=0.3. The reference r fernando was not used to int erpret this result as jasmyne l/abnormal. [facility]2018-06-12 11:57:00 Test Item Value Reference Range Interpretation Comments AST (test code = AST) 87 See_Comment [Auto mated message] The system which ge nerated this result transmit timur reference range : <=37. The reference range was not used to interpr et this result as jasmyne l/abnormal. [facility]2018-06-12 11:57:00 Test Item Value Reference Range Interpretation Comments ALT (test code = ALT) 56 See_Comment [Auto mated message] The system which ge nerated this result transmit timur reference range : <=65. The reference range was not used to interpr et this result as jasmyne l/abnormal. [facility]2018-06-12 11:57:00 Test Item Value Reference Range Interpretation Comments Alk Phos (test code = Alk Phos) 162 39-136 [facility] [id number] 11:57:00 Test Item Value Reference Range Interpretation Comments Albumin Lvl (test code = Albumin Lvl) 2.5 3.5-5.0 [facility] [id number] 11:57:00 Test Item Value Reference Range Interpretation Comments Total Protein (test code = Total 6.0 6.4-8.4 Protein) [facility] [id number] 11:57:00 Test Item Value Reference Range Interpretation Comments Globulin (test code = Globulin) 3.5 2.7-4.2 [facility]2018-06-12 11:57:00 Test Item Value Reference Range Interpretation Comments A/G Ratio (test code = A/G Ratio) 0.7 1 0.7-1.6 [facility] [id number] 11:57:00 Test Item Value Reference Range Interpretation Comments Procalcitonin Lvl (test 0.35 See_Comment [Au tomated message] code = Procalcitonin Lvl) Th e system which generated this result transmitted ref erence range: <=0.10. The reference range was not used to interpr et this result as normal/abnormal . [facility] HospitalBACTERIAL - [id number] 17:56:00 Test Item Value Reference Range Interpretation Comments MRSA by PCR (test Negative (02/19/18 12:56 code = MRSA by PCR) PM) [facility] AND [id number] 11:34:00 Test Item Value Reference Range Interpretation Comments UA Leuk Est (test Moderate *ABN*(02/19/18 code = UA Leuk Est) 6:34 AM) [facility] AND [id number] 11:34:00 Test Item Value Reference Range Interpretation Comments UA Urobilinogen (test code = UA 0.2 0.1-1.0 Urobilinogen) [facility] AND [id number] 11:34:00 Test Item Value Reference Range Interpretation Comments UA Nitrite (test code Positive *ABN*(02/19/18 = UA Nitrite) 6:34 AM) [facility] AND [id number] 11:34:00 Test Item Value Reference Range Interpretation Comments UA pH (test code = UA pH) 8.5 1 5.0-8.0 [facility] AND [id number] 11:34:00 Test Item Value Reference Range Interpretation Comments UA Protein (test code Negative (02/19/18 6:34 = UA Protein) AM) [facility] AND [id number] 11:34:00 Test Item Value Reference Range Interpretation Comments UA Glucose (test code Negative (02/19/18 6:34 = UA Glucose) AM) [facility] AND [id number] 11:34:00 Test Item Value Reference Range Interpretation Comments UA Blood (test code = Negative (02/19/18 6:34 UA Blood) AM) [facility] AND [id number] 11:34:00 Test Item Value Reference Range Interpretation Comments UA Ketones (test code Negative *NA*(02/19/18 = UA Ketones) 6:34 AM) [facility] AND [id number] 11:34:00 Test Item Value Reference Range Interpretation Comments UA Bili (test code = Negative *NA*(02/19/18 UA Bili) 6:34 AM) [facility] AND [id number] 11:34:00 Test Item Value Reference Range Interpretation Comments UA Color (test code = Yellow *NA*(02/19/18 UA Color) 6:34 AM) [facility] AND [id number] 11:34:00 Test Item Value Reference Range Interpretation Comments UA Spec Grav (test code = UA Spec 1.010 1 Grav) [facility] AND [id number] 11:34:00 Test Item Value Reference Range Interpretation Comments UA Turbidity (test code = Clear (02/19/18 6:34 UA Turbidity) AM) [facility] AND [id number] 11:34:00 Test Item Value Reference Range Interpretation Comments UA Amorph Aliya (test code = Occasional /HPF UA Amorph Aliya) [facility] AND [id number] 11:34:00 Test Item Value Reference Range Interpretation Comments UA Sq Epi (test code = UA Sq Occasional /LPF Epi) [facility] AND [id number] 11:34:00 Test Item Value Reference Range Interpretation Comments UA WBC (test code = 28 See_Comment [Automa timur message] The UA WBC) system which ge nerated this result transmit timur reference range : <=5. The reference range was not used to interpr et this result as jasmyne l/abnormal. [facility] AND [id number] 11:34:00 Test Item Value Reference Range Interpretation Comments UA RBC (test code = 8 See_Comment [Automa timur message] The UA RBC) system which ge nerated this result transmit timur reference range : <=2. The reference range was not used to interpr et this result as jasmyne l/abnormal. [facility] AND [id number] 11:34:00 Test Item Value Reference Range Interpretation Comments UA Mucus (test code = UA Mucus) Moderate /LPF [facility] HospitalCARAC [id number] 10:49:00 Test Item Value Reference Range Interpretation Comments Troponin-T (test code no gt See_Comment [Auto mated message] The = Troponin-T) system which g enerated this result transmit timur reference range : <=0.100. The reference r fernando was not used to interpr et this result as jasmyne l/abnormal. [facility] [id number] 10:49:00 Test Item Value Reference Range Interpretation Comments Plav Effect Plt (test code = Plav 281 Effect Plt) [facility] H[id number] 10:49:00 Test Item Value Reference Range Interpretation Comments ASA Effect Plt (test code = ASA Effect 565 Plt) [facility] [id number] 10:06:00 Test Item Value Reference Range Interpretation Comments Troponin-I (test code 0.04 See_Comment [Auto mated message] The = Troponin-I) system which g enerated this result transmit timur reference range : <=0.40. The reference r fernando was not used to interpr et this result as jasmyne l/abnormal. [facility] [id number] 09:31:00 Test Item Value Reference Range Interpretation Comments FFP product (test code Product available = FFP product) (02/19/18 4:31 AM) [facility] HospitalCHEM [id number] 08:36:00 Test Item Value Reference Range Interpretation Comments Lactic Acid Lvl (test code = Lactic 1.7 0.5-2.2 Acid Lvl) [facility] [id number] 08:31:00 Test Item Value Reference Range Interpretation Comments Antibody Scrn (test Negative (02/19/18 3:31 code = Antibody Scrn) AM) [facility] [id number] 08:31:00 Test Item Value Reference Range Interpretation Comments ABO/Rh (test code = ABO/Rh) A POS [id number] 08:31:00 Test Item Value Reference Range Interpretation Comments PTT (test code = PTT) 51.4 s 22.9-35.8 [id number] 08:31:00 Test Item Value Reference Range Interpretation Comments INR (test code = INR) 1.04 1 0.85-1.17 [facility] [id number] 08:31:00 Test Item Value Reference Range Interpretation Comments PT (test code = PT) 13.6 s 12.0-14.7 [facility] [id number] 08:31:00 Test Item Value Reference Range Interpretation Comments K-time Rapid (test code = K-time 0.8 min 0.6-2.3 Rapid) [facility]iscoGrpbyjsSSTQRFCCLM7298-08-26 08:31:00 Test Item Value Reference Range Interpretation Comments R-time Rapid (test code = R-time 0.6 min 0.4-0.7 Rapid) [id number] 08:31:00 Test Item Value Reference Range Interpretation Comments Split Point Rapid (test code = Split 0.5 min Point Rapid) [facility] FriscoFxljsrpVTMOMXYFAL2241-29-31 08:31:00 Test Item Value Reference Range Interpretation Comments ACT (TEG) Rapid (test code = ACT (TEG) 105 s 86-118 Rapid) [facility] [id number] 08:31:00 Test Item Value Reference Range Interpretation Comments G-value Rapid (test code = G-value 17.0 5.0-11.6 Rapid) [facility] [id number] 08:31:00 Test Item Value Reference Range Interpretation Comments Estimated % Lysis Rapid 1.2 See_Comment [Au tomated message] The (test code = Estimated syste m which generated % Lysis Rapid) this result t ransmitted reference range : <=7.5. The reference r fernando was not used to int erpret this result as normal/abnormal . [facility] [id number] 08:31:00 Test Item Value Reference Range Interpretation Comments Angle Rapid (test code = Angle 81 degrees 64-80 Rapid) [facility]iscoIwjvklbIFDKQIDEBJ5016-76-13 08:31:00 Test Item Value Reference Range Interpretation Comments Max Amplitude Rapid (test code = Max 77 mm 52-71 Amplitude Rapid) [facility]TulcftsQRLZZSKOPQVF0207-71-66 13:38:00 Test Item Value Reference Range Interpretation Comments Potassium Lvl (test code = Potassium 3.4 3.5-5.1 Lvl) [facility]2018-06-04 10:51:00 Test Item Value Reference Range Interpretation Comments Calcium Lvl (test code = Calcium Lvl) 8.7 8.5-10.5 [facility]2018-06-04 10:51:00 Test Item Value Reference Range Interpretation Comments AGAP (test code = AGAP) 14.9 10.0-20.0 [facility]2018-06-04 10:51:00 Test Item Value Reference Range Interpretation Comments Glucose Lvl (test code = Glucose Lvl) 110 70-99 [facility]2018-06-04 10:51:00 Test Item Value Reference Range Interpretation Comments CO2 (test code = CO2) 27 24-32 [facility]2018-06-04 10:51:00 Test Item Value Reference Range Interpretation Comments Creatinine Lvl (test code = Creatinine 0.62 0.50-1.40 Lvl) [facility]2018-06-04 10:51:00 Test Item Value Reference Range Interpretation Comments BUN (test code = BUN) 6 7-22 [facility]2018-06-04 10:51:00 Test Item Value Reference Range Interpretation Comments Sodium Lvl (test code = Sodium Lvl) 140 135-145 [facility]2018-06-04 10:51:00 Test Item Value Reference Range Interpretation Comments Potassium Lvl (test code = Potassium 2.9 3.5-5.1 Lvl) [facility]2018-06-04 10:51:00 Test Item Value Reference Range Interpretation Comments Chloride Lvl (test code = Chloride Lvl) 101 95-109 [facility]2018-06-04 10:51:00 Test Item Value Reference Range Interpretation Comments eGFR (test code = eGFR) [address] [facility] HospitalDozqgmfOCHYGXYIARKQ4953-19-17 05:33:00 Test Item Value Reference Range Interpretation Comments Sodium Lvl (test code = Sodium Lvl) 140 135-[address] [facility] [address] HospitalWrbukayYNNZFSPWLIJD8934-46-02 05:33:00 Test Item Value Reference Range Interpretation Comments Potassium Lvl (test code = Potassium 4.1 3.5-5.1 Lvl) [facility] HospitalDirjjzsOUNMUKYIHQKS0080-19-89 18:24:00 Test Item Value Reference Range Interpretation Comments Sodium Lvl (test code = Sodium Lvl) 137 135-145 [facility]2018-06-01 05:20:00 Test Item Value Reference Range Interpretation Comments eGFR (test code = eGFR) 86 [facility]2018-06-01 05:20:00 Test Item Value Reference Range Interpretation Comments Chloride Lvl (test code = Chloride Lvl) 103 95-109 [facility]2018-06-01 05:20:00 Test Item Value Reference Range Interpretation Comments CO2 (test code = CO2) 24 24-32 [facility]2018-06-01 05:20:00 Test Item Value Reference Range Interpretation Comments AGAP (test code = AGAP) 15.0 10.0-20.0 [facility]2018-06-01 05:20:00 Test Item Value Reference Range Interpretation Comments Calcium Lvl (test code = Calcium Lvl) 8.7 8.5-10.5 [facility]2018-06-01 05:20:00 Test Item Value Reference Range Interpretation Comments BUN (test code = BUN) 8 7-22 [facility]2018-06-01 05:20:00 Test Item Value Reference Range Interpretation Comments Creatinine Lvl (test code = Creatinine 0.62 0.50-1.40 Lvl) [facility]2018-06-01 05:20:00 Test Item Value Reference Range Interpretation Comments Glucose Lvl (test code = Glucose Lvl) 169 70-99 [facility]iscoRepkvemQQGMJUSJRR8070-15-52 05:20:00 Test Item Value Reference Range Interpretation Comments Lymphocytes # (test code = Lymphocytes 1.6 1.0-5.5 #) [facility]iscoMvjhscoGMNPYXFCLD6948-33-23 05:20:00 Test Item Value Reference Range Interpretation Comments Segs-Bands # (test code = Segs-Bands #) 6.7 1.5-8.1 [facility]iscoUsihrjeXNUGHZZIVQ8170-64-58 05:20:00 Test Item Value Reference Range Interpretation Comments Monocytes # (test code 0.8 See_Comment [Aut omated message] The = Monocytes #) system which generated this result tra nsmitted reference range : <=0.8. The reference r fernando was not used to int erpret this result as normal/abnormal . [facility]iscoUwmfuoqWREVHIVJZE7903-19-71 05:20:00 Test Item Value Reference Range Interpretation Comments Eosinophils # (test code 0.1 See_Comment [A utomated message] The = Eosinophils #) system whic h generated this result tra nsmitted reference range : <=0.5. The reference r fernando was not used to int erpret this result as normal/abnormal . [facility]iscoWpxbzyaWVRPRWLACD7978-36-12 05:20:00 Test Item Value Reference Range Interpretation Comments Monocytes (test code = Monocytes) 8.3 2.0-12.0 [facility] FriscoRrdxhjzFLACEOHIVE4608-00-48 05:20:00 Test Item Value Reference Range Interpretation Comments Eosinophils (test code = 1.4 See_Comment [A utomated message] The Eosinophils) system which ge nerated this result tra nsmitted reference range : <=4.0. The reference r fernando was not used to int erpret this result as normal/abnormal . [facility]iscoQhfditsXMLWNCEJKB1631-45-40 05:20:00 Test Item Value Reference Range Interpretation Comments Basophils (test code = 0.4 See_Comment [Aut omated message] The Basophils) system which ge nerated this result tra nsmitted reference range : <=1.0. The reference r fernando was not used to int erpret this result as normal/abnormal . [facility]iscoUjzuqbzLFKRQEXVAC7911-45-56 05:20:00 Test Item Value Reference Range Interpretation Comments Lymphocytes (test code = Lymphocytes) 17.5 20.0-40.0 [facility]iscoAhpjqrnUKYURKVXZN8155-71-92 05:20:00 Test Item Value Reference Range Interpretation Comments Segs (test code = Segs) 72.4 45.0-75.0 [facility]iscoMpxgqkyBSOWCPMIPA0103-55-14 05:20:00 Test Item Value Reference Range Interpretation Comments MCV (test code = MCV) 83.0 80.0-98.0 [facility] FriscoRakjknbBGEBYRCMSY1090-01-56 05:20:00 Test Item Value Reference Range Interpretation Comments MCH (test code = MCH) 28.3 pg 27.0-31.0 [facility] FriscoGsvtnzaPGBLLIWOOT7633-20-10 05:20:00 Test Item Value Reference Range Interpretation Comments Hct (test code = Hct) 29.7 36.0-48.0 [facility] FriscoUivuoyxXSEIRVTKAY9672-24-90 05:20:00 Test Item Value Reference Range Interpretation Comments Platelet (test code = Platelet) 257 133-450 [facility] FriscoTbqzmarPWBDKNGFKE6611-08-95 05:20:00 Test Item Value Reference Range Interpretation Comments MPV (test code = MPV) 8.3 7.4-10.4 [facility] FriscoWmxuvycOXLDMESAJX1916-02-83 05:20:00 Test Item Value Reference Range Interpretation Comments RDW (test code = RDW) 15.1 11.5-14.5 [facility] FriscoKdlzirbQBULQSCOJL5327-64-14 05:20:00 Test Item Value Reference Range Interpretation Comments MCHC (test code = MCHC) 34.1 32.0-36.0 [facility]iscoPjaakaaHISUPKHNFP9382-84-16 05:20:00 Test Item Value Reference Range Interpretation Comments RBC (test code = RBC) 3.58 4.20-5.40 [facility]iscoUcewfvuTPXKMDPRSI7525-21-98 05:20:00 Test Item Value Reference Range Interpretation Comments Hgb (test code = Hgb) 10.1 12.0-16.0 [facility]iscoKpzinzmHBYZDJOYIJ4244-30-59 05:20:00 Test Item Value Reference Range Interpretation Comments WBC (test code = WBC) 9.3 3.7-10.4 [facility] FriscoYmhrniiSCMCOXDIMD5877-53-85 10:57:00 Test Item Value Reference Range Interpretation Comments PTT (test code = PTT) 48.4 s 22.9-35.8 [facility] FriscoGeixxhfVZTMTEPBEK6685-15-28 10:57:00 Test Item Value Reference Range Interpretation Comments INR (test code = INR) 1.17 1 0.85-1.17 [facility] FriscoWuoufcrJEROZFVIZC0020-64-10 10:57:00 Test Item Value Reference Range Interpretation Comments PT (test code = PT) 15.0 s 12.0-14.7 [facility] FriscoEpcafyyWAQSYQNLNK1248-83-49 10:57:00 Test Item Value Reference Range Interpretation Comments Ly30 (test code = 2.3 See_Comment [Automate d message] The Ly30) system which ge nerated this result transmit timur reference range : <=7.5. The reference range was not used to interpr et this result as jasmyne l/abnormal. [facility] FriscoTylsvccWTEESSTKCI9158-01-69 10:57:00 Test Item Value Reference Range Interpretation Comments TEG Data (test code = See Note (02/08/18 5:57 TEG Data) AM) [facility] FriscoNvfezexHJPEROKKPN6990-16-95 10:57:00 Test Item Value Reference Range Interpretation Comments Coag Index (test code 4.0 1 See_Comment [Auto mated message] The = Coag Index) system which g enerated this result transmit timur reference range : <=3.0. The reference range was not used to interpr et this result as jasmyne l/abnormal. [facility] FriscoDbzbsjfGRVFTUHCCQ3689-24-20 10:57:00 Test Item Value Reference Range Interpretation Comments G-value (test code = G-value) 12.6 4.5-11.0 [facility] FriscoFugtidaHHYOICAICR2895-02-60 10:57:00 Test Item Value Reference Range Interpretation Comments Max Amp (test code = Max Amp) 71.6 mm 50.0-70.0 [facility] FriscoCmasqdxCPYPTZVPXA9939-31-40 10:57:00 Test Item Value Reference Range Interpretation Comments Angle (test code = Angle) 74.1 degrees 53.0-72.0 [facility] FriscoUnafkscMPLIJJSGPO3134-72-60 10:57:00 Test Item Value Reference Range Interpretation Comments K-time (test code = K-time) 1.1 min 1.0-3.0 [facility] FriscoRnpefqqMKSSVQCZTN6895-17-33 10:57:00 Test Item Value Reference Range Interpretation Comments R-time (test code = R-time) 3.3 min 5.0-10.0 [facility] FriscoVdonatqILSTAGQKLX8707-68-80 10:57:00 Test Item Value Reference Range Interpretation Comments TEG Interp (test Thrombelastograph results code = TEG show shortened value of R Interp) and increased values of both Angle Alpha and MA. These findings are suggestive of platelet and enzymatic hypercoagulation which may be seen in early phase of DIC. Monitor for DIC with DIC panel may be indicated. CPT:[id number] [facility]2018-05-31 05:45:00 Test Item Value Reference Range Interpretation Comments Magnesium Lvl (test code = Magnesium 2.2 1.8-2.4 Lvl) [facility]2018-05-31 05:45:00 Test Item Value Reference Range Interpretation Comments Phosphorus (test code = Phosphorus) 2.1 2.5-4.5 [facility] HospitalKswkxkeBOUIHIFLUBBY9306-41-35 05:45:00 Test Item Value Reference Range Interpretation Comments AGAP (test code = AGAP) 13.5 10.0-20.0 [facility] HospitalDrupgqlJRGMZDHZFMAE5487-33-16 05:45:00 Test Item Value Reference Range Interpretation Comments BUN (test code = BUN) 13 7-[address] [facility] HospitalWuibwuuXSXMICBZBVSG4942-57-01 05:45:00 Test Item Value Reference Range Interpretation Comments Creatinine Lvl (test code = Creatinine 0.73 0.50-1.40 Lvl) [facility] HospitalGiosngpHLEDPGFMGYQC8849-87-62 05:45:00 Test Item Value Reference Range Interpretation Comments Calcium Lvl (test code = Calcium Lvl) 8.7 8.5-10.5 [facility] HospitalJhientuIFDYHLRANZBG1560-16-02 05:45:00 Test Item Value Reference Range Interpretation Comments Chloride Lvl (test code = Chloride Lvl) 105 95-[address] [facility] [address] [facility] HospitalRbweltjENMPWFXYSKEA4202-18-88 05:45:00 Test Item Value Reference Range Interpretation Comments CO2 (test code = CO2) 24 24-[address] [facility] [address] HospitalHcoyzylBQXFXTCBTGAP4647-27-58 05:45:00 Test Item Value Reference Range Interpretation Comments eGFR (test code = eGFR) [address] [facility] HospitalQjgjbkbKOUGXGPYYLNX0803-41-69 05:45:00 Test Item Value Reference Range Interpretation Comments Glucose Lvl (test code = Glucose Lvl) 139 70-99 [facility] FriscoEdudiahLAICTYKWST0182-23-90 05:45:00 Test Item Value Reference Range Interpretation Comments WBC (test code = WBC) 8.7 3.7-10.4 [facility]iscoApasnzfIQPKYBASVU2372-06-77 05:45:00 Test Item Value Reference Range Interpretation Comments RDW (test code = RDW) 14.8 11.5-14.5 [facility] FriscoVdyidlvUPBUNXFKYJ9767-47-10 05:45:00 Test Item Value Reference Range Interpretation Comments MCHC (test code = MCHC) 33.8 32.0-36.0 [facility] FriscoBknxlelXONOMTUVHL2097-67-47 05:45:00 Test Item Value Reference Range Interpretation Comments MCH (test code = MCH) 28.3 pg 27.0-31.0 [facility] FriscoBikaadgZGLTPTIDPY6960-40-48 05:45:00 Test Item Value Reference Range Interpretation Comments MPV (test code = MPV) 8.2 7.4-10.4 [facility] FriscoHbsoqgbZXFDLDRGDF2027-65-99 05:45:00 Test Item Value Reference Range Interpretation Comments Platelet (test code = Platelet) 228 133-450 [facility] FriscoLhwyrzoDJCARQEXFR8115-86-74 05:45:00 Test Item Value Reference Range Interpretation Comments Hgb (test code = Hgb) 9.5 12.0-16.0 [facility] FriscoEakawxnHOHRXLGETE2248-70-57 05:45:00 Test Item Value Reference Range Interpretation Comments Hct (test code = Hct) 28.0 36.0-48.0 [facility] FriscoQvnlifbOJUBZDDJZR8836-72-48 05:45:00 Test Item Value Reference Range Interpretation Comments MCV (test code = MCV) 83.8 80.0-98.0 [facility] FriscoLjjvxbzLTAYHZQXEJ4389-79-62 05:45:00 Test Item Value Reference Range Interpretation Comments RBC (test code = RBC) 3.34 4.20-5.40 [facility] FriscoOkctgpeJBKDNKGKYA3583-16-52 05:45:00 Test Item Value Reference Range Interpretation Comments Lymphocytes (test code = Lymphocytes) 16.6 20.0-40.0 [facility] FriscoWxrkyvhMXTTSOWZZK1097-66-15 05:45:00 Test Item Value Reference Range Interpretation Comments Segs (test code = Segs) 73.5 45.0-75.0 [facility] FriscoScckcegCKDOUJYPIZ4301-34-75 05:45:00 Test Item Value Reference Range Interpretation Comments Monocytes # (test code 0.8 See_Comment [Aut omated message] The = Monocytes #) system which generated this result tra nsmitted reference range : <=0.8. The reference r fernando was not used to int erpret this result as normal/abnormal . [facility]iscoWywqxsaVXSJRXALUQ7259-28-51 05:45:00 Test Item Value Reference Range Interpretation Comments Segs-Bands # (test code = Segs-Bands #) 6.4 1.5-8.1 [facility] FriscoPqjwgfhJRUOUKMFJI5992-91-98 05:45:00 Test Item Value Reference Range Interpretation Comments Basophils (test code = 0.1 See_Comment [Aut omated message] The Basophils) system which ge nerated this result tra nsmitted reference range : <=1.0. The reference r fernando was not used to int erpret this result as normal/abnormal . [facility] FriscoNtsmvuwGZNUFKBUHQ2545-73-35 05:45:00 Test Item Value Reference Range Interpretation Comments Eosinophils (test code = 0.4 See_Comment [A utomated message] The Eosinophils) system which ge nerated this result tra nsmitted reference range : <=4.0. The reference r fernando was not used to int erpret this result as normal/abnormal . [facility] FriscoWmkzmemPAOMKCRVWA5540-47-54 05:45:00 Test Item Value Reference Range Interpretation Comments Monocytes (test code = Monocytes) 9.4 2.0-12.0 [facility] FriscoMxqjivvTZTLCRSQIW9401-58-92 05:45:00 Test Item Value Reference Range Interpretation Comments Lymphocytes # (test code = Lymphocytes 1.4 1.0-5.5 #) [facility]2018-05-31 05:45:00 Test Item Value Reference Range Interpretation Comments Ca Norm WB (test code = Ca Norm WB) 1.15 1.05-1.25 [facility]2018-05-31 05:45:00 Test Item Value Reference Range Interpretation Comments Ca Ion WB (test code = Ca Ion WB) 1.12 1.05-1.25 [facility] HospitalSocialGlimpz KMFUJ2413-96-62 05:06:00 Test Item Value Reference Range Interpretation Comments Magnesium Lvl (test code = Magnesium 2.4 1.8-2.4 Lvl) [facility]2018-05-30 05:06:00 Test Item Value Reference Range Interpretation Comments Phosphorus (test code = Phosphorus) 2.6 2.5-4.5 [facility] FriscoUicliejZHKMKZUKAY6981-61-32 05:06:00 Test Item Value Reference Range Interpretation Comments PTT (test code = PTT) 52.3 s 22.9-35.8 [facility]iscoEeezvkgOJRLMABVHR8145-14-55 05:06:00 Test Item Value Reference Range Interpretation Comments PT (test code = PT) 14.8 s 12.0-14.7 [facility] FriscoCshnuqlSIAAGPJBMB2415-07-71 05:06:00 Test Item Value Reference Range Interpretation Comments INR (test code = INR) 1.16 1 0.85-1.17 [facility] FriscoLgvmstlVKNCGXSWFB8818-62-48 05:06:00 Test Item Value Reference Range Interpretation Comments Estimated % Lysis Rapid 2.0 See_Comment [Au tomated message] The (test code = Estimated syste m which generated % Lysis Rapid) this result t ransmitted reference range : <=7.5. The reference r fernando was not used to int erpret this result as normal/abnormal . [facility] FriscoGelturfJYEPWZDJEW0684-53-83 05:06:00 Test Item Value Reference Range Interpretation Comments R-time Rapid (test code = R-time 0.8 min 0.4-0.7 Rapid) [facility] FriscoGjhryhwULETHNDINC8062-82-67 05:06:00 Test Item Value Reference Range Interpretation Comments K-time Rapid (test code = K-time 0.8 min 0.6-2.3 Rapid) [facility]iscoSnyvwpwDRVPUNAVVK4167-44-43 05:06:00 Test Item Value Reference Range Interpretation Comments Split Point Rapid (test code = Split 0.7 min Point Rapid) [facility] FriscoPasukyhAQZCSXGWLY9471-90-54 05:06:00 Test Item Value Reference Range Interpretation Comments Angle Rapid (test code = Angle 80 degrees 64-80 Rapid) [facility] FriscoUdcpwffZJMOMYEWFA5233-77-82 05:06:00 Test Item Value Reference Range Interpretation Comments Max Amplitude Rapid (test code = Max 76 mm 52-71 Amplitude Rapid) [facility] FriscoConbqnhEWNUWDDUFO4204-81-56 05:06:00 Test Item Value Reference Range Interpretation Comments ACT (TEG) Rapid (test code = ACT (TEG) 121 s 86-118 Rapid) [facility] FriscoOsjywfmJOASEMXUCL6968-73-04 05:06:00 Test Item Value Reference Range Interpretation Comments G-value Rapid (test code = G-value 15.5 5.0-11.6 Rapid) [facility]iscoWdftzjdBUXMNUIJZW6352-01-38 05:06:00 Test Item Value Reference Range Interpretation Comments WBC (test code = WBC) 7.3 3.7-10.4 [facility] FriscoScrsqjxBHRBKQCVFY9151-83-63 05:06:00 Test Item Value Reference Range Interpretation Comments RBC (test code = RBC) 3.28 4.20-5.40 [facility] FriscoNouwebhAKSMKNZCDI5902-98-03 05:06:00 Test Item Value Reference Range Interpretation Comments MPV (test code = MPV) 8.0 7.4-10.4 [facility] FriscoTmagjhcBKIDLHWOPD6568-19-03 05:06:00 Test Item Value Reference Range Interpretation Comments MCHC (test code = MCHC) 34.8 32.0-36.0 [facility] FriscoVmoscwxRNJWKMQFMS0776-15-10 05:06:00 Test Item Value Reference Range Interpretation Comments RDW (test code = RDW) 14.6 11.5-14.5 [facility] FriscoMabviyuWOHZUSPRHP3639-31-28 05:06:00 Test Item Value Reference Range Interpretation Comments Platelet (test code = Platelet) 228 133-450 [facility] FriscoBjkgpegSEDPVPZSUL7676-43-14 05:06:00 Test Item Value Reference Range Interpretation Comments MCV (test code = MCV) 82.5 80.0-98.0 [facility] FriscoPwctapaRHTVYFHVND4982-13-19 05:06:00 Test Item Value Reference Range Interpretation Comments MCH (test code = MCH) 28.7 pg 27.0-31.0 [facility] FriscoSrtwvabCPHVMEVBCT3754-20-98 05:06:00 Test Item Value Reference Range Interpretation Comments Hgb (test code = Hgb) 9.4 12.0-16.0 [facility] FriscoTsqmksxRRBWPMTDMB5102-25-48 05:06:00 Test Item Value Reference Range Interpretation Comments Hct (test code = Hct) 27.0 36.0-48.0 [facility] FriscoNlemrunWWGJEDBQZN6463-01-64 05:06:00 Test Item Value Reference Range Interpretation Comments Monocytes # (test code 0.9 See_Comment [Aut omated message] The = Monocytes #) system which generated this result tra nsmitted reference range : <=0.8. The reference r fernando was not used to int erpret this result as normal/abnormal . [facility] FriscoMxlxmspLNJMUNHUOK2506-37-82 05:06:00 Test Item Value Reference Range Interpretation Comments Eosinophils # (test code 0.1 See_Comment [A utomated message] The = Eosinophils #) system whic h generated this result tra nsmitted reference range : <=0.5. The reference r fernando was not used to int erpret this result as normal/abnormal . [facility] FriscoRyeinbdLXHNBCBDZW4539-27-69 05:06:00 Test Item Value Reference Range Interpretation Comments Lymphocytes # (test code = Lymphocytes 1.6 1.0-5.5 #) [facility] FriscoOgfbjsfKIKHYDMTMF0595-88-23 05:06:00 Test Item Value Reference Range Interpretation Comments Segs-Bands # (test code = Segs-Bands #) 4.8 1.5-8.1 [facility] FriscoPcqbxcoSPQUVFPDOO9408-51-67 05:06:00 Test Item Value Reference Range Interpretation Comments Basophils (test code = 0.1 See_Comment [Aut omated message] The Basophils) system which ge nerated this result tra nsmitted reference range : <=1.0. The reference r fernando was not used to int erpret this result as normal/abnormal . [facility] FriscoGqzoqbyMUYLYWVDSU4992-43-72 05:06:00 Test Item Value Reference Range Interpretation Comments Monocytes (test code = Monocytes) 12.4 2.0-12.0 [facility] FriscoPtxmrshVYKFKBGAOP0667-15-53 05:06:00 Test Item Value Reference Range Interpretation Comments Eosinophils (test code = 0.8 See_Comment [A utomated message] The Eosinophils) system which ge nerated this result tra nsmitted reference range : <=4.0. The reference r fernando was not used to int erpret this result as normal/abnormal . [facility] FriscoWomlxzxHMSBIJAMYX7065-34-71 05:06:00 Test Item Value Reference Range Interpretation Comments Lymphocytes (test code = Lymphocytes) 21.4 20.0-40.0 [facility] FriscoQrsubblPLYLYSFMSC1460-54-82 05:06:00 Test Item Value Reference Range Interpretation Comments Segs (test code = Segs) 65.3 45.0-75.0 [facility]2018-05-30 05:06:00 Test Item Value Reference Range Interpretation Comments Ca Ion WB (test code = Ca Ion WB) 1.14 1.05-1.25 [facility]2018-05-30 05:06:00 Test Item Value Reference Range Interpretation Comments Ca Norm WB (test code = Ca Norm WB) 1.14 1.05-1.25 [facility] [employer] [id number] 21:23:00 Test Item Value Reference Range Interpretation Comments Lactic Acid Lvl (test code = Lactic 1.7 0.5-2.2 Acid Lvl) [facility] [id number] 15:19:00 Test Item Value Reference Range Interpretation Comments Procalcitonin Lvl (test no gt See_Comment [Au tomated message] code = Procalcitonin Lvl) Th e system which generated this result transmitted ref erence range: <=0.10. The reference range was not used to interpr et this result as normal/abnormal . [facility] AgeBACTERIAL - [id number] 15:03:00 Test Item Value Reference Range Interpretation Comments MRSA by PCR (test Negative (02/06/18 10:03 code = MRSA by PCR) AM) [facility] [id number] 15:03:00 Test Item Value Reference Range Interpretation Comments Lactic Acid Lvl (test code = Lactic 2.1 0.5-2.2 Acid Lvl) [facility] [employer] [id number] 10:01:00 Test Item Value Reference Range Interpretation Comments Troponin-I (test code no gt See_Comment [Auto mated message] The = Troponin-I) system which g enerated this result transmit timur reference range : <=0.40. The reference r fernando was not used to interpr et this result as jasmyne l/abnormal. [facility] [employer] [id number] 10:01:00 Test Item Value Reference Range Interpretation Comments Troponin-T (test code no gt See_Comment [Auto mated message] The = Troponin-T) system which g enerated this result transmit timur reference range : <=0.100. The reference r fernando was not used to interpr et this result as jasmyne l/abnormal. [facility] [employer] [id number] 10:01:00 Test Item Value Reference Range Interpretation Comments Total CK (test code = Total CK) 188 12-191 [facility] [employer] [id number] 10:01:00 Test Item Value Reference Range Interpretation Comments CK MB Index (test 1.2 1 See_Comment [Automate d message] The code = CK MB Index) system w VISup generated this result transmit timur reference range : <=2.5. The reference range was not used to interpr et this result as jasmyne l/abnormal. [facility] AlektoCARDIAC [id number] 10:01:00 Test Item Value Reference Range Interpretation Comments CK MB (test code = CK MB) 2.3 0.5-3.6 [facility] AlektoPARATHYROID [id number] 06:28:00 Test Item Value Reference Range Interpretation Comments Ca Norm WB (test code = Ca Norm WB) 1.00 1.05-1.25 [facility] Edi.ioannPARATHYROID [id number] 06:28:00 Test Item Value Reference Range Interpretation Comments Ca Ion WB (test code = Ca Ion WB) 0.99 1.05-1.25 [facility] AlektoCARBuysideFXAC [id number] 05:16:00 Test Item Value Reference Range Interpretation Comments CK MB Index (test 1.5 1 See_Comment [Automate d message] The code = CK MB Index) system w Weave generated this result transmit timur reference range : <=2.5. The reference range was not used to interpr et this result as jasmyne l/abnormal. [facility] [employer] [id number] 05:16:00 Test Item Value Reference Range Interpretation Comments CK MB (test code = CK MB) 1.4 0.5-3.6 [facility] [employer] [id number] 05:16:00 Test Item Value Reference Range Interpretation Comments Troponin-T (test code no gt See_Comment [Auto mated message] The = Troponin-T) system which g enerated this result transmit timur reference range : <=0.100. The reference r fernando was not used to interpr et this result as jasmyne l/abnormal. [facility] [employer] [id number] 05:16:00 Test Item Value Reference Range Interpretation Comments Troponin-I (test code no gt See_Comment [Auto mated message] The = Troponin-I) system which g enerated this result transmit timur reference range : <=0.40. The reference r fernando was not used to interpr et this result as jasmyne l/abnormal. [facility] [employer] [id number] 05:16:00 Test Item Value Reference Range Interpretation Comments Total CK (test code = Total CK) 94 12-191 [facility]2018-05-29 05:16:00 Test Item Value Reference Range Interpretation Comments Albumin Lvl (test code = Albumin Lvl) 3.2 3.5-5.0 [facility]2018-05-29 05:16:00 Test Item Value Reference Range Interpretation Comments B/C Ratio (test code = B/C Ratio) 14 1 6-25 [facility]2018-05-29 05:16:00 Test Item Value Reference Range Interpretation Comments Total Protein (test code = Total 6.4 6.4-8.4 Protein) [facility]2018-05-29 05:16:00 Test Item Value Reference Range Interpretation Comments Globulin (test code = Globulin) 3.2 2.7-4.2 [facility]2018-05-29 05:16:00 Test Item Value Reference Range Interpretation Comments ALT (test code = ALT) 16 See_Comment [Auto mated message] The system which ge nerated this result transmit timur reference range : <=65. The reference range was not used to interpr et this result as jasmyne l/abnormal. [facility]2018-05-29 05:16:00 Test Item Value Reference Range Interpretation Comments A/G Ratio (test code = A/G Ratio) 1.0 1 0.7-1.6 [facility]2018-05-29 05:16:00 Test Item Value Reference Range Interpretation Comments Bili Total (test code = Bili Total) 0.3 0.2-1.3 [facility]2018-05-29 05:16:00 Test Item Value Reference Range Interpretation Comments Alk Phos (test code = Alk Phos) 67 39-136 [facility]2018-05-29 05:16:00 Test Item Value Reference Range Interpretation Comments AST (test code = AST) 14 See_Comment [Auto mated message] The system which ge nerated this result transmit timur reference range : <=37. The reference range was not used to interpr et this result as jasmyne l/abnormal. [facility] HospitalSocialGlimpz [id number] 05:16:00 Test Item Value Reference Range Interpretation Comments Magnesium Lvl (test code = Magnesium 1.6 1.8-2.4 Lvl) [facility]2018-05-29 05:16:00 Test Item Value Reference Range Interpretation Comments Phosphorus (test code = Phosphorus) 2.1 2.5-4.5 [id number] 05:16:00 Test Item Value Reference Range Interpretation Comments Estimated % Lysis Rapid 0.9 See_Comment [Au tomated message] The (test code = Estimated syste m which generated % Lysis Rapid) this result t ransmitted reference range : <=7.5. The reference r fernando was not used to int erpret this result as normal/abnormal . [id number] 05:16:00 Test Item Value Reference Range Interpretation Comments G-value Rapid (test code = G-value 11.7 5.0-11.6 Rapid) [facility] [id number] 05:16:00 Test Item Value Reference Range Interpretation Comments K-time Rapid (test code = K-time 0.8 min 0.6-2.3 Rapid) [id number] 05:16:00 Test Item Value Reference Range Interpretation Comments Angle Rapid (test code = Angle 76 degrees 64-80 Rapid) [facility] [id number] 05:16:00 Test Item Value Reference Range Interpretation Comments Max Amplitude Rapid (test code = Max 70 mm 52-71 Amplitude Rapid) [facility] [id number] 05:16:00 Test Item Value Reference Range Interpretation Comments ACT (TEG) Rapid (test code = ACT (TEG) 121 s 86-118 Rapid) [facility] [id number] 05:16:00 Test Item Value Reference Range Interpretation Comments Split Point Rapid (test code = Split 0.4 min Point Rapid) [facility] [id number] 05:16:00 Test Item Value Reference Range Interpretation Comments R-time Rapid (test code = R-time 0.8 min 0.4-0.7 Rapid) [facility] [id number] 05:16:00 Test Item Value Reference Range Interpretation Comments INR (test code = INR) 1.14 1 0.85-1.17 [facility] [id number] 05:16:00 Test Item Value Reference Range Interpretation Comments PTT (test code = PTT) 46.9 s 22.9-35.8 [facility] HospitalYvbkalvRRVTAGDWKH2910-70-05 05:16:00 Test Item Value Reference Range Interpretation Comments PT (test code = PT) 14.6 s 12.0-14.7 [facility] HospitalLecwinfNRXFPGMLEW0625-41-27 01:34:00 Test Item Value Reference Range Interpretation Comments Plav Effect Plt (test code = Plav 220 Effect Plt) [facility] [id number] 01:34:00 Test Item Value Reference Range Interpretation Comments ASA Effect Plt (test code = ASA Effect 540 Plt) [facility] [id number] 01:29:00 Test Item Value Reference Range Interpretation Comments CK MB (test code = CK MB) 0.9 0.5-3.6 [facility] [id number] 01:29:00 Test Item Value Reference Range Interpretation Comments CK MB Index (test 1.2 1 See_Comment [Automate d message] The code = CK MB Index) system w [facility] generated this result transmit timur reference range : <=2.5. The reference range was not used to interpr et this result as jasmyne l/abnormal. [facility] HospitalTriState CapitalSA[facility] [id number] 01:29:00 Test Item Value Reference Range Interpretation Comments Troponin-T (test code no gt See_Comment [Auto mated message] The = Troponin-T) system which g enerated this result transmit timur reference range : <=0.100. The reference r fernando was not used to interpr et this result as jasmyne l/abnormal. [facility] HospitalTriState CapitalSAINT CLA[facility] [id number] 01:29:00 Test Item Value Reference Range Interpretation Comments Troponin-I (test code no gt See_Comment [Auto mated message] The = Troponin-I) system which g enerated this result transmit timur reference range : <=0.40. The reference r fernando was not used to interpr et this result as jasmyne l/abnormal. [facility] HospitalHunch [id number] 01:29:00 Test Item Value Reference Range Interpretation Comments Total CK (test code = Total CK) 77 12-191 [facility] [id number] 01:29:00 Test Item Value Reference Range Interpretation Comments Lactic Acid Lvl (test code = Lactic 1.6 0.5-2.2 Acid Lvl) [facility] [id number] 01:29:00 Test Item Value Reference Range Interpretation Comments Osmolality (test code = Osmolality) 273 280-300 [facility] AND [id number] 01:29:00 Test Item Value Reference Range Interpretation Comments UA Sq Epi (test code = UA Sq Epi) None Seen [facility] AND [id number] 01:29:00 Test Item Value Reference Range Interpretation Comments UA Urobilinogen (test code = UA <=1.0 mg/dL 0.1-1.0 Urobilinogen) [facility] AND [id number] 01:29:00 Test Item Value Reference Range Interpretation Comments UA Color (test code = Light Yellow UA Color) *NA*(02/05/18 8:29 PM) [facility] AND [id number] 01:29:00 Test Item Value Reference Range Interpretation Comments UA Spec Grav (test code = UA Spec 1.010 1 Grav) [facility] AND [id number] 01:29:00 Test Item Value Reference Range Interpretation Comments UA pH (test code = UA pH) 7.5 1 5.0-8.0 [facility] AND [id number] 01:29:00 Test Item Value Reference Range Interpretation Comments UA Turbidity (test code Slight *ABN*(02/05/18 = UA Turbidity) 8:29 PM) [facility] AND [id number] 01:29:00 Test Item Value Reference Range Interpretation Comments UA Glucose (test code = UA Glucose) 300 mg/dL [facility] AND [id number] 01:29:00 Test Item Value Reference Range Interpretation Comments UA Protein (test code = UA Protein) 100 mg/dL [facility] AND [id number] 01:29:00 Test Item Value Reference Range Interpretation Comments UA Ketones (test code = UA Ketones) 20 mg/dL [facility] AND [id number] 01:29:00 Test Item Value Reference Range Interpretation Comments UA Nitrite (test code Negative (02/05/18 8:29 = UA Nitrite) PM) [facility] AND [id number] 01:29:00 Test Item Value Reference Range Interpretation Comments UA WBC (test code = 1 See_Comment [Automa timur message] The UA WBC) system which ge nerated this result transmit timur reference range : <=5. The reference range was not used to interpr et this result as jasmyne l/abnormal. [facility] AND [id number] 01:29:00 Test Item Value Reference Range Interpretation Comments UA Leuk Est (test Negative (02/05/18 8:29 code = UA Leuk Est) PM) [facility] AND [id number] 01:29:00 Test Item Value Reference Range Interpretation Comments UA RBC (test code = 3 See_Comment [Automa timur message] The UA RBC) system which ge nerated this result transmit timur reference range : <=2. The reference range was not used to interpr et this result as jasmyne l/abnormal. [facility] AND [id number] 01:29:00 Test Item Value Reference Range Interpretation Comments UA Amorph Aliya (test code = UA Few /HPF Amorph Aliya) [facility] AND [id number] 01:29:00 Test Item Value Reference Range Interpretation Comments UA Mucus (test code = UA Mucus) Few /LPF [facility] AND [id number] 01:29:00 Test Item Value Reference Range Interpretation Comments UA Blood (test code = Negative (02/05/18 8:29 UA Blood) PM) [facility] AND [id number] 01:29:00 Test Item Value Reference Range Interpretation Comments UA Bili (test code = Negative *NA*(02/05/18 UA Bili) 8:29 PM) [facility] [id number] 01:29:00 Test Item Value Reference Range Interpretation Comments U Osmolality (test code = U Osmolality) 477 300-800 [facility] [id number] 01:29:00 Test Item Value Reference Range Interpretation Comments U Sodium (test code = U Sodium) 123 [facility] HospitalBL[facility] [id number] 01:25:00 Test Item Value Reference Range Interpretation Comments FFP product (test code Product available = FFP product) (02/05/18 8:25 PM) [facility] [id number] 23:04:00 Test Item Value Reference Range Interpretation Comments ACT (TEG) Rapid (test code = ACT (TEG) 144 s 86-118 Rapid) [facility] [id number] 23:04:00 Test Item Value Reference Range Interpretation Comments Split Point Rapid (test code = Split 0.7 min Point Rapid) [facility] [id number] 23:04:00 Test Item Value Reference Range Interpretation Comments K-time Rapid (test code = K-time 0.9 min 0.6-2.3 Rapid) [facility] [id number] 23:04:00 Test Item Value Reference Range Interpretation Comments R-time Rapid (test code = R-time 1.0 min 0.4-0.7 Rapid) [facility] [id number] 23:04:00 Test Item Value Reference Range Interpretation Comments Max Amplitude Rapid (test code = Max 75 mm 52-71 Amplitude Rapid) [facility] [id number] 23:04:00 Test Item Value Reference Range Interpretation Comments Angle Rapid (test code = Angle 76 degrees 64-80 Rapid) [facility] FriscoIwrzlquDOJLHZLVEH0501-19-27 23:04:00 Test Item Value Reference Range Interpretation Comments G-value Rapid (test code = G-value 14.8 5.0-11.6 Rapid) [facility] [id number] 23:04:00 Test Item Value Reference Range Interpretation Comments Estimated % Lysis Rapid 0.0 See_Comment [Au tomated message] The (test code = Estimated syste m which generated % Lysis Rapid) this result t ransmitted reference range : <=7.5. The reference r fernando was not used to int erpret this result as normal/abnormal . [facility] HospitalModavanti.com [id number] 23:00:00 Test Item Value Reference Range Interpretation Comments ABO/Rh (test code = ABO/Rh) A POS [facility] HospitalModavanti.com [id number] 23:00:00 Test Item Value Reference Range Interpretation Comments Antibody Scrn (test Negative (02/05/18 6:00 code = Antibody Scrn) PM) [facility]
[2023-01-03 10:08] LABS: Absolute Lymphocytes (CBC) 2.1 K/uL (0.7-4.9); Lymphocytes % 37.2 % (15.3-44.8); MCV 86.5 fL (80-100); MPV 7.5 fL (7.6-11.3); RBC Red Blood Cell Count 4.28 M/uL (3.86-4.86)
[2023-01-03 10:23] LABS: Potassium 3.9 mEq/L (3.5-5.1)
--- NOTE | 2023-01-03 10:37 | RAD REPORT ---
EXAM DESCRIPTION: CT - Head Brain Wo Cont - 01/03/2023 10:14 am CLINICAL HISTORY: HEADACHE COMPARISON: Head Brain Wo Cont dated 12/27/2022; Head angio dated 12/27/2022 TECHNIQUE: Noncontrast head CT images ad were obtained without IV contrast. Multiplanar reformats we re generated and reviewed. All CT scans are performed using dose optimization technique as appropriate and may include automated exposure control or mA/KV adjustment according to patient size. FINDINGS: No intracranial hemorrhage, mass, or edema. Midline structures are unremarkable. Stable ventricular caliber. Mild diffuse parenchymal volume loss, stable. Stable right basal ganglia focus of hypoattenuation, may relate to a small remote infarct. Joseph-white matter differentiation otherwise preserved, without evidence of acute infarct. No abnormal extra-axi al fluid collections. Mastoid air cells and visualized portions of the paranasal sinuses are clear. No acute bony findings. IMPRESSION: No evidence of an acute intracranial process. Stable findings as above.
--- NOTE | 2023-01-03 11:01 | ER ---
Nurse's Notes [facility] [place] Name: Skylar Grossman Age: 87 yrs Sex: Female : 1935 Arrival Date: 01/03/2023 Time: 09:42 Bed 15 Private MD: Diagnosis: Headache;Neck pain;Carotid stenosis Presentation: 01/03 09:45 Chief complaint: EMS states: pt was dropped 1month ago at [facility] and was kc6 admitted to [facility] for a bleed. since then the pt has had continuous headaches. Coronavirus screen: Vaccine status: Patient reports receiving the 2nd dose of the covid vaccine. At this time, the client does not indicate any symptoms associated with coronavirus-19. Ebola Screen: No symptoms or risks identified at this time. Initial Sepsis Screen: Does the patient meet any 2 criteria? No. Patient's initial sepsis screen is negative. Does the patient have a suspected source of infection? No. Patient's initial sepsis screen is negative. Risk Assessment: Do you want to hurt yourself or someone else? Patient reports no desire to harm self or others. Onset of symptoms was January 03, 2023. 09:45 Method Of Arrival: EMS: [facility] kc6 09:45 Acuity: FARIDA 3 kc6 Triage Assessment: 09:46 General: Appears in no apparent distress. uncomfortable, Behavior is calm, cooperative, kc6 appropriate for age. Pain: Complains of pain in head. EENT: No signs and/or symptoms were reported regarding the EENT system. Neuro: Cruz Agitation-Sedation Scale (RASS): 0 - Alert and Calm Level of Consciousness is awake, alert, obeys commands, Oriented to person, place, time, situation, Appropriate for age. Cardiovascular: Capillary refill < 3 seconds. Respiratory: Airway is patent Trachea midline Respiratory effort is even, unlabored, Respiratory pattern is regular, symmetrical. GI: No signs and/or symptoms were reported involving the gastrointestinal system. : No signs and/or symptoms were reported regarding the genitourinary system. Derm: No signs and/or symptoms reported regarding the dermatologic system. Skin is intact, Skin is pink, warm \T\ dry. Musculoskeletal: No signs and/or symptoms reported regarding the musculoskeletal system. Circulation, motion, and sensation intact. Capillary refill < 3 seconds, Range of motion: intact in all extremities. Historical: - Allergies: 09:46 Codeine (Upset stomach); kc6 09:46 meperidine HCl; kc6 09:46 Morphine; kc6 - PMHx: 09:46 Cardiac pacemaker in situ; CVA; Dementia; Depression; Diabetes - IDDM; GERD; High kc6 Cholesterol; Hypertension; - PSHx: 09:46 Appendectomy; Cholecystectomy; Total abdominal hysterectomy; kc6 - Immunization history:: Client reports receiving the 2nd dose of the Covid vaccine, Flu vaccine is not up to date. - Social history:: Smoking status: Patient denies any tobacco usage or history of. Screenin:45 [facility] ED Fall Risk Assessment (Adult) History of falling in the last 3 months, kc6 including since admission No falls in past 3 months (0 pts) Confusion or Disorientation Yes (5 pts) Intoxicated or Sedated No (0 pts) Impaired Gait Yes (1 pt) Mobility Assist Device Used No (0 pt) Altered Elimination No (0 pt) Score/Fall Risk Level 3 or more points = High Risk Oriented to surroundings, Maintained a safe environment, Educated pt \T\ family on fall prevention, incl call for assistance when getting out of bed, Assessed \T\ reinforced patient's understanding of fall precautions, Hourly rounding (assess needs \T\ fall precautionary measures) done. Abuse screen: Denies threats or abuse. Denies injuries from another. Nutritional screening: No deficits noted. Tuberculosis screening: No symptoms or risk factors identified. Assessment: 10:45 Reassessment: Patient appears in no apparent distress at this time. No changes from kc6 previously documented assessment. Patient and/or family updated on plan of care and expected duration. Pain level reassessed. Patient is alert, oriented x 3, equal unlabored respirations, skin warm/dry/pink. 11:00 Reassessment: d/c pending ride home. sister is on her way. kc6 11:45 Reassessment: Patient appears in no apparent distress at this time. No changes from kc6 previously documented assessment. Patient and/or family updated on plan of care and expected duration. Pain level reassessed. Patient is alert, oriented x 3, equal unlabored respirations, skin warm/dry/pink. 12:45 Reassessment: Patient appears in no apparent distress at this time. No changes from kc6 previously documented assessment. Patient and/or family updated on plan of care and expected duration. Pain level reassessed. Patient is alert, oriented x 3, equal unlabored respirations, skin warm/dry/pink. 13:45 Reassessment: Patient appears in no apparent distress at this time. No changes from kc6 previously documented assessment. Patient and/or family updated on plan of care and expected duration. Pain level reassessed. Patient is alert, oriented x 3, equal unlabored respirations, skin warm/dry/pink. Vital Signs: 09:45 BP 210 / 112; Pulse 63; Resp 18 S; Temp 97.8(O); Pulse Ox 97% on R/A; Weight 72.57 kg kc6 (R); Height 5 ft. 4 in. (R); Pain 8/10; 10:51 BP 196 / 70; Pulse 66; Resp 18 S; Pulse Ox 100% on R/A; kc6 12:28 BP 151 / 105; Pulse 67; Resp 18; Pulse Ox 100% ; mb9 12:39 BP 151 / 105; Pulse 70; Resp 18 S; Pulse Ox 96% on R/A; kc6 13:47 BP 183 / 82; Pulse 63; Resp 19 S; Pulse Ox 99% on R/A; kc6 09:45 Body Mass Index 27.46 (72.57 kg, 162.56 cm) kc6 09:45 Pain Scale: Adult kc6 ED Course: 09:44 Patient arrived in ED. kc6 09:44 Barak Walker DO is Attending Physician. ms3 09:45 Luz Mendoza, RN is Primary Nurse. kc6 09:46 Triage completed. kc6 09:46 Arm band placed on. kc6 09:48 Patient has correct armband on for positive identification. Bed in low position. Call kc6 light in reach. Side rails up X2. 10:16 CT Head Brain wo Cont In Process Unspecified. EDMS 12:28 No provider procedures requiring assistance completed. mb9 13:14 CT Head Angio In Process Unspecified. EDMS 13:14 CT Neck Angio In Process Unspecified. EDMS 13:52 Rashad Awan MD is Referral Physician. ms3 Administered Medications: No medications were administered Medication: 12:28 VIS not applicable for this client. mb9 Outcome: 11:01 Discharge ordered by MD. ms3 13:53 Discharge ordered by ms3 14:19 Patient left the ED. kc6 Signatures: Dispatcher [employer] EDMS Barak Walker DO DO ms3 Luz Mendoza RN RN kc6 Nehal Delvalle RN RN mb9 Corrections: (The following items were deleted from the chart) 12:39 11:01 Reassessment: d/c pending ride home [id number] kc6
--- NOTE | 2023-01-03 11:02 | EDPHYS ---
Physician Documentation [facility] Name: Skylar Grossman Age: 87 yrs Sex: Female : 1935 Arrival Date: 01/03/2023 Time: 09:42 Bed 15 Private MD: ED Physician Barak Walker HPI: 01/03 11:01 This 87 yrs old Female presents to ER via EMS with complaints of headache. ms3 11:01 87-year-old female with past medical history of CVA, dimension, depression, diabetes ms3 presents via [facility] for headache that began last night. Patient states the pain is better after taking Tylenol. Patient denies inciting factors. Patient states her headache is currently a 6/10. Patient denies nausea, vomiting.. Historical: - Allergies: 09:46 Codeine (Upset stomach); kc6 09:46 meperidine HCl; kc6 09:46 Morphine; kc6 - PMHx: 09:46 Cardiac pacemaker in situ; CVA; Dementia; Depression; Diabetes - IDDM; GERD; High kc6 Cholesterol; Hypertension; - PSHx: 09:46 Appendectomy; Cholecystectomy; Total abdominal hysterectomy; kc6 - Immunization history:: Client reports receiving the 2nd dose of the Covid vaccine, Flu vaccine is not up to date. - Social history:: Smoking status: Patient denies any tobacco usage or history of. ROS: 11:01 Constitutional: Negative for fever, and chills. Neck: Negative for injury, pain, and ms3 swelling, Cardiovascular: Negative for chest pain, and palpitations. Respiratory: Negative for shortness of breath, cough, wheezing, and pleuritic chest pain, Abdomen/GI: Negative for abdominal pain, nausea, vomiting, diarrhea, and constipation, MS/Extremity: Negative for injury and deformity, Skin: Negative for injury, rash, and discoloration. 11:01 Neuro: Positive for headache. Exam: 11:01 Constitutional: This is a well developed, well nourished patient who is awake, alert, ms3 and in no acute distress. Head/Face: Normocephalic, atraumatic. Eyes: Pupils equal round and reactive to light, extra-ocular motions intact. Lids and lashes normal. Conjunctiva and sclera are non-icteric and not injected. Periorbital areas with no swelling, redness, or edema. Neck: Trachea midline, no cervical lymphadenopathy. Supple, full range of motion without nuchal rigidity, or vertebral point tenderness. No Meningismus. Chest/axilla: Normal chest wall appearance and motion. Nontender with no deformity. Cardiovascular: Regular rate and rhythm with a normal S1 and S2. No gallops, murmurs, or rubs. Normal PMI, no JVD. No pulse deficits. Respiratory: Lungs have equal breath sounds bilaterally, clear to auscultation and percussion. No rales, rhonchi or wheezes noted. No increased work of breathing, no retractions or nasal flaring. Abdomen/GI: Soft, non-tender, with normal bowel sounds. No distension or tympany. No guarding or rebound. No evidence of tenderness throughout. Skin: Warm, dry with normal turgor. Normal color with no rashes, no lesions, and no evidence of cellulitis. MS/ Extremity: Pulses equal, no cyanosis. Neurovascular intact. Full, normal range of motion. Neuro: Awake and alert, GCS 15, oriented to person, place, time, and situation. Cranial nerves II-XII grossly intact. Motor strength 5/5 in all extremities. Sensory grossly intact. Cerebellar exam normal. Normal gait. Vital Signs: 09:45 BP 210 / 112; Pulse 63; Resp 18 S; Temp 97.8(O); Pulse Ox 97% on R/A; Weight 72.57 kg kc6 (R); Height 5 ft. 4 in. (R); Pain 8/10; 10:51 BP 196 / 70; Pulse 66; Resp 18 S; Pulse Ox 100% on R/A; kc6 12:28 BP 151 / 105; Pulse 67; Resp 18; Pulse Ox 100% ; mb9 12:39 BP 151 / 105; Pulse 70; Resp 18 S; Pulse Ox 96% on R/A; kc6 13:47 BP 183 / 82; Pulse 63; Resp 19 S; Pulse Ox 99% on R/A; kc6 09:45 Body Mass Index 27.46 (72.57 kg, 162.56 cm) [facility] 09:45 Pain Scale: Adult kc MDM: 09:48 Patient medically screened. ms3 11:01 Refusal of service: The patient/guardian displays adequate decision making capability ms3 and despite a detailed discussion of alternatives, benefits, risks, and consequences refuses: Lumbar Puncture procedure, CTA head and neck. 11:01 Differential diagnosis: intracerebral hemorrhage, migraine, subarachnoid bleed, ms3 subdural hematoma, tension headache. Data reviewed: vital signs, nurses notes, lab test result(s), radiologic studies, CT scan, and as a result, I will discharge patient. Independent interpretation of the following test(s) in the Emergency Department CT Scan: My interpretation is CT head images reviewed by me and did not reveal intracranial hemorrhage. ED course: Discussed labs and CT head with patient. Discussed obtaining lumbar puncture or CTA head and neck with patient. Patient declines lumbar puncture and CTA at this time. Patient states she is improved, and tired of waiting in the emergency department. Patient to follow-up with her primary care physician in 2 to 3 days. Patient understands and agrees with plan. All questions were answered. Return precautions discussed include worsening symptoms, or any other concerns.. 01/03 09:49 Order name: CBC with Diff; Complete Time: 10:53 3 01/03 09:49 Order name: BMP; Complete Time: 10:53 ms3 01/03 09:49 Order name: CT Head Brain wo Cont; Complete Time: 10:53 ms3 01/03 12:31 Order name: CT Head Angio; Complete Time: 13:35 ms3 01/03 12:31 Order name: CT Neck Angio; Complete Time: 13:35 ms3 Administered Medications: No medications were administered Disposition Summary: 01/03/23 13:53 Discharge Ordered Location: Home(01/03/23 13:53) ms3 Condition: Stable(01/03/23 13:53) ms3 Diagnosis - Headache(01/03/23 13:53) ms3 - Neck pain ms3 - Carotid stenosis ms3 Followup: ms3 - With: Rashad Awan MD - When: 1 - 2 days - Reason: Recheck today's complaints Discharge Instructions: - Discharge Summary Sheet ms3 - General Headache Without Cause ms3 - Musculoskeletal Pain ms3 Forms: - Medication Reconciliation Form ms3 - Thank You Letter ms3 - Antibiotic Education ms3 - Prescription Opioid Use ms3 Prescriptions: - Lipitor 10 mg Oral Tablet - take 1 tablet by ORAL route once daily; 30 tablet; Refills: 0, Product ms3 Selection Permitted - Folic Acid 1 mg Oral Tablet - take 1 tablet by ORAL route once daily; 30 tablet; Refills: 0, Product ms3 Selection Permitted Signatures: Dispatcher [employer] EDBarak Dick DO DO ms3 Luz Mendoza RN RN kc6 Corrections: (The following items were deleted from the chart) 12: 11:01 Home ms3 ms3 12: 11:01 Stable ms3 ms3 12: 11:01 Headache ms3 ms3 12: 11:01 Essential (primary) hypertension ms3 ms3
--- NOTE | 2023-01-03 13:22 | RAD REPORT ---
EXAM DESCRIPTION: CT - Head angio - 01/03/2023 1:12 pm CLINICAL HISTORY: HEADACHE COMPARISON: Head Brain Wo Cont dated 01/03/2023; Head Brain Wo Cont dated 12/27/2022; Head C Spine Mpr Wo Con dated 10/10/2022; Neck Angio dated 12/27/2022; Head angio dated 12/27/2022 TECHNIQUE: CT angiography of the head was performed with MIPs. All CT scans are performed using dose optimization technique as appropriate and may include automated exposure control or mA/KV adjustment according to patient size. FINDINGS: No evidence of large vessel occlusion. No evidence of aneurysm is detected. Stenosis of navneet th A2 segments noted which is high-grade without occlusion. Moderate bilateral stenotic changes also affect both posterior cerebral arteries. Antegrade flow is seen in the vertebral arteries. Multifocal atherosclerotic plaquing is seen involvi ng the vertebrobasilar system. Moderate stenosis seen proximal basilar artery. The visualized dural venous sinuses are patent. IMPRESSION: High-grade focal stenoses present both A2 segments. No evidence of occlusion. Moderate stenosis seen both posterior cerebral arteries and proximal basilar artery.
--- NOTE | 2023-01-03 13:24 | RAD REPORT ---
EXAM DESCRIPTION: CT - Neck Angio - 01/03/2023 1:12 pm CLINICAL HISTORY: neck pain Headache, drowsiness COMPARISON: <Comparisons> TECHNIQUE: CT angiography of the neck vessels was performed with MIPs. All CT scans are performed using dose optimization technique as appropriate and may include automated exposure control or mA/KV adjustment according to patient size. FINDINGS: A left aortic arch is identified with normal three vessel configuration of the great vesse ls. Moderate hard plaque is seen distal right common carotid artery and proximal internal carotid artery. Severe stenosis caused by mixed plaquing is seen proximal left ICA. Based on NASCET criteria, stenosi s is estimated at 80-90%. Vertebral arteries show forward flow and are codominant. 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
[2023-01-03 14:53] VITALS: TEMP 97.8
[2023-01-03 14:58] VITALS: BP 183/82; O2SAT 99
== END 2023-01-03 14:19 | disposition home or self-care (01) ==
LOC: ER 09:42
DX: R51.9 Headache, unspecified (principal); M54.2 Cervicalgia; I65.29 Occlusion and stenosis of unspecified carotid artery; I10 Essential (primary) hypertension; F03.90 Unspecified dementia, unspecified severity, without behavioral disturbance, psychotic disturbance, mood disturbance, and anxiety; Z95.0 Presence of cardiac pacemaker; Z88.5 Allergy status to narcotic agent; Z88.8 Allergy status to other drugs, medicaments and biological substances
CPT/HCPCS: 85025; 80048; 36415; 70450; 70496; 70498; 99283; Q9967

== ENCOUNTER 2023-01-14 10:50 | Inpatient (IN) | payer OTHER ==
[2023-01-14] MEDS ORDERED: NALOXONE HCL 2 MG/2 ML VIAL ONE (11:03)
--- OUTSIDE RECORDS SUMMARY | 2023-01-14 11:08 | XMS REPORT | Continuity of Care Document ---
:1935 Author Organization [facility] t Address [address] [facility] [address] [place] [address] Care Team Providers Name Role Phone No MD, Pcp [facility] Primary Care Physician Unavailable JUAQUIN MCINTYRE Attending Clinician Unavailable HARINI BETANCOURT Attending Clinician Unavailable HARINI BETANCOURT Attending Clinician Unavailable GILBERT GERRADO Attending Clinician Unavailable Inez Martin MD Attending Clinician INEZ MARTIN Attending Clinician Unavailable Doctor Unassigned, [place] Attending Clinician Unavailable JARVIS SHARP Attending Clinician Unavailable Liza Zarco Attending Clinician Raul Rosen MD Attending Clinician Jarvis Sharp MD Attending Clinician CASSIUS PINK Attending Clinician Unavailable DAYAMI LOVE Attending Clinician Unavailable Dayami Whitman Attending Clinician [phone] Pob, [facility] Main Attending Clinician Unavailable Colleen WHITT, Jamil Reeder Attending Clinician Unavailable ACACIA DEL TORO Attending Clinician Unavailable Srinath Cohen DO Attending Clinician Annie GABRIEL, Acacia Landaverde Attending Clinician Ca Meléndez MD Attending Clinician Therapy, [facility] Attending Clinician Unavailable Unknown, Attending Attending Clinician Unavailable UNKNOWN, ATTENDING Attending Clinician Unavailable Marciano WHITT, Paco Alejandra Attending Clinician Unavailable Only, Kevin Db Test Attending Clinician Unavailable Pavan FIERROP, Jud Attending Clinician JUD CHUA Attending Clinician Unavailable JUAQUIN MCINTYRE Admitting Clinician Unavailable INEZ MARTIN Admitting Clinician Unavailable JARVIS SHARP Admitting Clinician Unavailable Chel GABRIEL, Jarvis Admitting Clinician STACEY OLIVAS Admitting Clinician Unavailable HARINI BETANCOURT Admitting Clinician Unavailable ACACIA DEL TORO Admitting Clinician Unavailable Annie GABRIEL, Acacia Landaverde Admitting Clinician LUIS E DOMINGUEZ Admitting Clinician Unavailable Payers Payer Name Policy Type Policy Number Effective Date Expiration Date S dianelys MEDICARE PART A AND [id number] 1998 B 00:00:00 MEDICARE A B [id number] 1998 00:00:00 [facility] [id number] 2019 HEALTHCARE 00:00:00 MEDICARE PART A \\T\\ [id number] 1998 B 00:00:00 Problems Condition Condition Condition Status Onset Resolution Last Treating Co mments Source Name Details Category Date Date Treatment Clinician Date Hyponatrem Hyponatrem Disease Recurre Univers ia ia nce 2-14 ity of 00:00: [place] [facility] 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 2-14 it y of 00:00: [place] [facility] At high At high Disease Active Univers risk for risk for 2-14 ity of seizures seizures 00:00: [place] [facility] SUBDURAL SUBDURAL Diagnosis Active 2022-10-10 Memoria RADHA RADHA 10-10 12:36:00 l Active 00:00: Austyn 10/10/2022 00 [facility] TSDH TSDH Diagnosis Active 2022-10-11 Mem oria Active 10-10 12:26:00 l 10/10/2022 00:00: Jax sosa [address] Sick sinus Sick sinus Disease Active U nivers syndrome syndrome - ity of 00:00: Medical Branch Symptomati Symptomati Disease Active U nivers c c 10-06 ity of bradycardi bradycardi [place] a 00 Medical [place] Sinus Sinus Disease Active Overview: Univer s pause pause 09-13 Formattin ity of 00:00: g of this note Medical might be Branch different from the original. Added automatic ally from request for surgery [id number] Syncope Syncope Disease Active Overview: Univ ers and and 09-13 Formattin ity of collapse collapse 00:00: g of this [place] as 00 note Medical might be Branch different from the original. 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 Added automatic ally from request for surgery [id number] Acute Acute Disease Active [facility] encephal[facility] encephalop 7-16 [facility] athy athy 00:00: Medical 00 Center Vasovagal Vasovagal Disease Active [facility] Colitis Colitis Disease [facility] Syncope Syncope Disease Active [facility] 00:[facility]: Medical 00 [place] SDH SDH Diagnosis Active 2018-02-26 Mem oria Active 02-18 12:06:00 l 02/18/2018 00:00: Jax sosa [address] FALL/ FALL/ Diagnosis Active 2018-02-19 Mem oria INTRAVENTR INTRAVENTR 6- 04:32:00 l ICULAR ICULAR 00:00: [place] HEMORRHAGE HEMORRHAGE 00 VS SDH VS SDH Active 02/18/2018 [facility] ACUTE SDH ACUTE SDH Diagnosis Active 2018-02-16 Memoria Active 02-05 22:05:00 l 02/05/2018 00:00: Jax sosa [address] Pain in Pain in Disease Active Overview: Univ ers limb limb 12-04 Formattin ity of 00:00: g of this [place] 00 note Medical might be Branch different [...] of and and 00:00: g of this [place] radiculiti radiculiti 00 note Me dical s, s, might be Branch unspecifie unspecifie different d d from the original. Cervical radiculop athy Osteoarthr Osteoarthr Disease Active Overview : Univers itis itis 12-04 Formattin ity of 00:00: g of this [place] 00 note Medical might be Branch different from the original. ICD10 Diagnosis Term Boom Supervisor Utility Esophageal Esophageal Disease Active 2005-09 U nivers reflux reflux 1-15 ity of 00:00: [place] 00 Medical Branch Diabetic Diabetic Disease Active 2005-09 Overview: Un teo polyneurop polyneurop 1-15 Formattin ity of athy athy 00:00: g of this [place] 00 note Medical might be Branch different from the original. ICD10 Diagnosis Term Boom Supervisor Utility Chronic Chronic Disease Active 2005-09 Univers depressive depressive 1-15 it y of personalit personalit 00:[place] y disorder y disorder 00 Me dical Branch HLD HLD Disease Active 2005-09 Overview: Univer s (hyperlipi (hyperlipi 1-15 Formattin ity of demia) demia) 00:00: g of this [place] 00 note Medical might be Branch different from the original. 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 ICD10 Diagnosis Term Boom Supervisor Utility Hypertensi Hypertens Problem Resolve 2018-10-22 Memoria ve sudeep d 15:27:05 l disorder, disorder, Herm roxanne systemic systemic arterial arterial (disorder) (disorder) Resolved Problem 10/22/2018 [facility] NONTRAUMAT NONTRAUMA Diagnosis Active 2018-02-16 [facility] IC ACUTE TIC ACUTE 22:05:00 l SUBDURAL SUBDURAL Jax n HEMORRHAGE HEMORRHAGE Active [facility] NONTRAUMAT NONTRAUMA Diagnosis Active 2018-02-26 [facility] IC CHRONIC TIC 12:06:00 l SUBDURAL CHRONIC Austyn HEMORRHAGE SUBDURAL HEMORRHAGE Active [facility] FALL FALL Diagnosis Active 2018-02-19 Mem oria Active 03:11:00 l [facility] TRAUM TRAUM Diagnosis Active 2022-10-11 [facility] oria SUBDR HEM SUBDR HEM 12:26:00 l WITH LOC WITH LOC Jax n STATUS STATUS UNKNOWN, UNKNOWN, Active [facility] Allergies, Adverse Reactions, Alerts Allergy Allergy Status [...] NE HCL INGREDI 3-10 ity of 00:00: [place] 00 Medical Branch Meperidi Propensi Active Unknown - 2008-0 REACTIONS Univers ne Hcl ty to See comments 3-10 UNKNOWN ity of adverse 00:00: [place] reaction 00 Medical s Branch CODEINE DRUG Active High Anaphylaxis 2005- Univ ers INGREDI 0-04 ity of 00:00: [place] 00 Medical Branch Codeine Propensi Active Anaphylaxis 2005- Un teo ty to 0-04 ity of adverse 00:00: [place] reaction 00 Medical s to Branch drug codeine codeine Active Memoria l [place] Demerol Demerol Active Memoria HCl HCl l [place] NO KNOWN Allergy Active [facility] ALLERGIE S Family History Family Member Diagnosis Comments Start Date Stop Date Source Natural father High blood pressure C HI [facility] Social History Social Habit Start Date Stop Date Quantity Comments Source History SDOH Social Unive rsity of Connections [facility] Med ical Together Branch History SDOH Social Unive rsity of Connections [facility] Medical Branch History SDOH Social Unive rsity of Connections [place] Medical Membership Branch History SDOH Social Unive rsity of Connections [place] Medical Meetings Branch History SDOH [facility] [...] University o f Physical Activity 00:00:00 00:00:00 [facility] edical MPS Branch History SDOH 2022-10-25 2022-10-25 5 University o f Financial 00:00:00 00:00:00 [place] [facility] History SDOH Food 2022-10-25 2022-10-25 1 Univers ity of Worry 00:00:00 00:00:00 [place] [facility] History SDOH Food 2022-10-25 2022-10-25 1 Univers ity of Scarcity 00:00:00 00:00:00 [place] [facility] [place] Tobacco use and 2022-08-03 2022-08-03 Smokeless Universit y of exposure 00:00:00 00:00:00 tobacco non-user [facility] dical Branch History [facility] 2020-03-27 2020-03-[address] [facility] Alcohol Frequency 00:00:00 00:00:00 [facility] Alcohol intake 2020-03-26 2020-03-[address] [facility] 00:00:00 00:00:00 non-drinker of Medical nter alcohol (finding) Social History 2018-02-19 2018-02-19 [facility] 11:13:34 11:13:34 Sex Assigned At [address] Corina kes 00:00:00 00:00:00 [facility] Smoking Status Start Date Stop Date Source Never smoked tobacco [facility] Medications Ordered Filled Start Stop Current Ordering Indication Dosage Frequency Signature Comments Components Source Medication Medication Date Date Medication? Clinician (SIG) Name Name amLODIPine 2022- Yes 5mg Take 5 mg Un teo 5 mg tablet 2-21 by mouth ity of 17:33: at [place] [address] bedtime. Medical Branch aspirin 81 2022-0 Yes 81mg Take 81 mg U nivers mg EC 2-21 by mouth ity of tablet 17:33: in the [place] [address] morning. Medical Branch lisinopriL 2022-0 Yes 20mg Take 20 mg U nivers 20 mg 2-21 by mouth ity of tablet 17:33: in the [place] [address] morning Medical and 20 mg Branch in the evening. metFORMIN 2022-0 Yes 500mg Take 500 Uni vers 500 mg 2-21 mg by ity of tablet 17:33: mouth in [place] [address] the Medical morning Branch and 500 mg in the evening. Take with meals. pantoprazol 2023-0 Yes 40mg Take 40 mg Univers e 2-21 by mouth ity of (PROTONIX) 17:33: in the [place] 20 mg EC 53 morning. Medical tablet Branch tamsulosin 2022-0 Yes Take by [facility] ers (FLOMAX) 2-21 mouth ity of 0.4 mg 24 17:33: daily. [place] hr capsule 53 Medical Branch FLUoxetine 2022-0 Yes 20mg Take 20 mg U nivers 20 mg 2-21 by mouth ity of capsule 17:33: in the [place] [address] morning. Medical Branch gabapentin 2022-0 Yes 300mg Take 300 Un teo 300 mg 2-21 mg by ity of capsule 17:33: mouth 2 [place] 53 (two) Medical times Branch daily as needed. memantine 3-0 Yes 10mg Take 10 mg Un teo 10 mg 2-21 by mouth ity of tablet 17:33: in the [place] [address] morning Medical and 10 mg Branch in the evening. simvastatin 3-0 Yes 20mg Take 20 mg Univers 20 mg 2-21 by mouth ity of tablet 17:33: at [place] [address] bedtime. Medical Branch amLODIPine 2022-0 Yes 5mg Take 5 mg Un teo 5 mg tablet 2-21 by mouth ity of 17:33: at [place] [address] bedtime. Medical Branch aspirin 81 2022-0 Yes 81mg Take 81 mg U nivers mg EC 2-21 by mouth ity of tablet 17:33: in the [place] [address] morning. Medical Branch lisinopriL 2022-0 Yes 20mg Take 20 mg U nivers 20 mg 2-21 by mouth ity of tablet 17:33: in the [place] [address] morning Medical and 20 mg Branch in the evening. metFORMIN 3-0 Yes 500mg Take 500 Uni vers 500 mg 2-21 mg by ity of tablet 17:33: mouth in [place] 53 the Medical morning Branch and 500 mg in the evening. Take with meals. pantoprazol 3-0 Yes 40mg Take 40 mg Univers e 2-21 by mouth ity of (PROTONIX) 17:33: in the [place] 20 mg EC 53 morning. Medical tablet Branch tamsulosin 2022-0 Yes Take by [facility] ers (FLOMAX) 2-21 mouth ity of 0.4 mg 24 17:33: daily. [place] hr capsule 53 Medical Branch FLUoxetine 3-0 Yes 20mg Take 20 mg U nivers 20 mg 2-21 by mouth ity of capsule 17:33: in the [place] [address] morning. Medical Branch gabapentin 2022-0 Yes 300mg Take 300 Un teo 300 mg 2-21 mg by ity of capsule 17:33: mouth 2 [place] [address] (two) Medical times Branch daily as needed. memantine 3-0 Yes 10mg Take 10 mg Un teo 10 mg 2-21 by mouth ity of tablet 17:33: in the [place] [address] morning Medical and 10 mg Branch in the evening. simvastatin 3-0 Yes 20mg Take 20 mg Univers 20 mg 2-21 by mouth ity of tablet 17:33: at [place] [address] bedtime. Medical Branch amLODIPine 2022-0 Yes 5mg Take 5 mg Un teo 5 mg tablet 2-21 by mouth ity of 17:33: at [place] [address] bedtime. Medical Branch aspirin 81 2022-0 Yes 81mg Take 81 mg U nivers mg EC 2-21 by mouth ity of tablet 17:33: in the [place] [address] morning. Medical Branch lisinopriL 2022-0 Yes 20mg Take 20 mg U nivers 20 mg 2-21 by mouth ity of tablet 17:33: in the [place] [address] morning Medical and 20 mg Branch in the evening. metFORMIN 2022-0 Yes 500mg Take 500 Uni vers 500 mg 2-21 mg by ity of tablet 17:33: mouth in [place] [address] the Medical morning Branch and 500 mg in the evening. Take with meals. pantoprazol 2022-0 Yes 40mg Take 40 mg Univers e 2-21 by mouth ity of (PROTONIX) 17:33: in the [place] 20 mg EC morning. Medical tablet Branch tamsulosin 2022-0 Yes Take by [facility] ers (FLOMAX) 2-21 mouth ity of 0.4 mg 24 17:33: daily. [facility] capsule 53 Medical Branch FLUoxetine 2022-0 Yes 20mg Take 20 mg U nivers 20 mg 2-21 by mouth ity of capsule 17:33: in the [place] [address] morning. Medical Branch gabapentin 2022-0 Yes 300mg Take 300 Un teo 300 mg 2-21 mg by ity of capsule 17:33: mouth 2 [place] [address] (two) Medical times Branch daily as needed. memantine 3-0 Yes 10mg Take 10 mg Un teo 10 mg 2-21 by mouth ity of tablet 17:33: in the [place] [address] morning Medical and 10 mg Branch in the evening. simvastatin 2022-0 Yes 20mg Take 20 mg Univers 20 mg 2-21 by mouth ity of tablet 17:33: at [place] [address] bedtime. Medical Branch amLODIPine 2022-0 Yes 5mg Take 5 mg Un teo 5 mg tablet 2-21 by mouth ity of 17:33: at [place] [address] bedtime. Medical Branch aspirin 81 2022-0 Yes 81mg Take 81 mg U nivers mg EC 2-21 by mouth ity of tablet 17:33: in the [place] [address] morning. Medical Branch lisinopriL 2022-0 Yes 20mg Take 20 mg U nivers 20 mg 2-21 by mouth ity of tablet 17:33: in the [place] [address] morning Medical and 20 mg Branch in the evening. metFORMIN 2022-0 Yes 500mg Take 500 Uni vers 500 mg 2-21 mg by ity of tablet 17:33: mouth in [place] [address] the Medical morning Branch and 500 mg in the evening. Take with meals. pantoprazol 2022-0 Yes 40mg Take 40 mg Univers e 2-21 by mouth ity of (PROTONIX) 17:33: in the [place] 20 mg EC 53 morning. Medical tablet Branch tamsulosin 0 Yes Take by [facility] ers (FLOMAX) 2-21 mouth ity of 0.4 mg 24 17:33: daily. [place] hr capsule 53 Medical Branch FLUoxetine 2022-0 Yes 20mg Take 20 mg U nivers 20 mg 2-21 by mouth ity of capsule 17:33: in the [place] [address] morning. Medical Branch gabapentin 2022-0 Yes 300mg Take 300 Un teo 300 mg 2-21 mg by ity of capsule 17:33: mouth 2 [place] 53 (two) Medical times Branch daily as needed. memantine 2022-0 Yes 10mg Take 10 mg Un teo 10 mg 2-21 by mouth ity of tablet 17:33: in the [place] [address] morning Medical and 10 mg Branch in the evening. simvastatin 2022-0 Yes 20mg Take 20 mg Univers 20 mg 2-21 by mouth ity of tablet 17:33: at [place] [address] bedtime. Medical Branch levETIRAcet 2022-0 2023- No 250mg Take 250 Univers am (KEPPRA) 2-21 02-21 mg by ity of 250 mg 13:41: 00:00 mouth in [place] tablet 41 :00 the [facility] and 250 mg in the evening. levETIRAcet 2022- Yes [id number] 500mg Take 1 Univers am 500 mg 11-01 tablet by ity of tablet 00:00: 04:59 mouth in [place] 00 :00 the [facility] and 1 tablet in the evening. Do all this for 90 days. levETIRAcet 2022- Yes [id number] 500mg Take 1 Univers am 500 mg 11-01 tablet by ity of tablet 00:00: 04:59 mouth in [place] 00 :00 the [facility] and 1 tablet in the evening. Do all this for 90 days. levETIRAcet 2022- Yes [id number] 500mg Take 1 Univers am 500 mg 11-01 tablet by ity of tablet 00:00: 04:59 mouth in [place] 00 :00 the [facility] and 1 tablet in the evening. Do all this for 90 days. levETIRAcet 2022- Yes [id number] 500mg Take 1 Univers am 500 mg 11-01 tablet by ity of tablet 00:00: 04:59 mouth in [place] 00 :00 [facility] and 1 tablet in the evening. Do all this for 90 days. levETIRAcet Yes 500mg 500 mg, Un teo am (KEPPRA) 2-20 Oral, BID, it y of tablet 500 02:00: First dose [place] mg 00 on [facility] 10/30/22 at Branch 1999, Until Discontinu ed, Routine morpHINE ( Yes 2mg 2 mg, Slow Univers mg/mL) 2-17 IV Push, ity of injection 2 02:52: Q4HPRN, [place] as mg 02 Starting Medical on [facility] 10/27/22 at 2051, Until Discontinu ed, Routine, Pain (scale 7-10) heparin Yes 5000U 5,000 Univers (porcine) 2-16 Units, ity of injection 20:00: Subcutaneo [place] 5,000 Units 00 us, Q8H, [facility] First dose Branch on [facility] 10/27/22 at 1400, Until Discontinu ed, Routine metoprolol 0 Yes 25mg 25 mg, Unive rs tartrate 2-16 Oral, BID, ity o f (LOPRESSOR) 02:00: First dose [place] tablet 25 00 on Mon mg 10/26/22 at Branch 2000, Until Discontinu ed, Routine metoprolol 2022- Yes [id number] 25mg Take 1 Univers tartrate 25 2-16 -19 tablet by it y of mg tablet 00:00: 04:59 mouth in [place] 00 :00 the [facility] morning Branch and 1 tablet in the evening. Do all this for 30 days. metoprolol 2022-2022- Yes [id number] 25mg Take 1 Univers tartrate 25 2-16 -19 tablet by it y of mg tablet 00:00: 04:59 mouth in [place] 00 :00 the [facility] morning Branch and 1 tablet in the evening. Do all this for 30 days. metoprolol 2022- Yes [id number] 25mg Take 1 Univers tartrate 25 2-16 -19 tablet by it y of mg tablet 00:00: 04:59 mouth in [place] 00 :00 the [facility] and 1 tablet in the evening. Do all this for 30 days. KCL 2022- No 40meq 40 mEq, Univers (KLOR-CON 10-2615 Oral, ity of M20) tablet 05:45: 05:18 ONCE, 1 [place] 40 mEq 00 :00 dose, On [facility] 10/25/22 at 2345, Routine magnesium 2022- No 2g 2 g, IV Univ ers sulfate in 10-2615 Piggyback, it y of water 2 05:45: 06:20 Administer [place] as gram/50 mL 00 :00 over 60 Medica l (4 %) Minutes, Branch infusion 2 ONCE, 1 g dose, On [facility] 10/25/22 at 2345, Routine simvastatin 2022-0 Yes 20mg 20 mg, Univ ers (ZOCOR) 2-15 Oral, QHS, ity of tablet 20 03:00: First dose [place] mg 00 on Mon [facility] 10/25/22 at Branch 2100, Until Discontinu ed, Routine amLODIPine 0 Yes 5mg 5 mg, Univer s (NORVASC) 2-15 Oral, QHS, ity of tablet 5 mg 03:00: First dose [place] 00 on [facility] 10/25/22 at Branch 2100, Until Discontinu ed, Routine phytonadion 2022-0 2023- No 10mg IV Unive rs e (VITAMIN 2- 0214 Piggyback, it y of K) 10 mg in 16:45: 18:08 ONCE, 1 [place] NaCl 0.9% 00 :00 dose, On Medica l (NS) [facility] piggyback 10/25/22 at 1045, 50 mL NaCl [...] xas 10 mL 01 Starting Medical on [facility] Branch 10/25/22 at 0949, Until Discontinu ed, Routine, line maintenanc e lidocaine 2022-0 Yes 5mL 5 mL, Univers 1% (PF) 2-14 Subcutaneo ity of (XYLOCAINE) 15:49: us, PRN, [place] injection 5 01 Starting Medi joyce mL on [facility] 10/25/22 at 0949, Until Discontinu ed, Routine, Local anesthesia tamsulosin 2022-0 Yes .4mg 0.4 mg, Univ ers (FLOMAX) 2-14 Oral, ity of capsule 0.4 15:00: DAILY, [place] mg 00 First dose Medical on [facility] 10/25/22 at 0900, Until Discontinu ed, Routine pantoprazol 2022-0 Yes 40mg 40 mg, Univ ers e 2-14 Oral, ity of (PROTONIX) 15:00: DAILY, [place] EC tablet 00 First dose Medi joyce 40 mg on [facility] 10/25/22 at 0900, Until Discontinu ed, Routine FLUoxetine 2022-0 Yes 20mg 20 mg, Unive rs (PROZAC) 2-14 Oral, ity of capsule 20 15:00: DAILY, [place] mg 00 First dose Medical on [facility] 10/25/22 at 0900, Until Discontinu ed, Routine metFORMIN Yes 500mg 500 mg, Univ ers (GLUCOPHAGE 2-14 Oral, BID ity of ) tablet 14:00: MEALS, [place] 500 mg 00 First dose Medical on [facility] 10/25/22 at 0800, Until Discontinu ed, Routine memantine Yes 10mg 10 mg, Univer s (NAMENDA) 2-14 Oral, BID, ity of tablet 10 14:00: First dose [place] mg 00 on [facility] 10/25/22 at Branch 0800, Until Discontinu ed, Routine
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 Restricted medication : JARVIS SHARP lisinopriL Yes 20mg 20 mg, Unive rs (PRINIVIL,Z 2-14 Oral, BID, it y of ESTRIL) 14:00: First dose [place] tablet 20 00 on [facility] mg 10/25/22 at Branch 0800, Until Discontinu ed, Routine gabapentin Yes 200mg 200 mg, Uni vers (NEURONTIN) 2-14 Oral, TID, it y of capsule 200 14:00: First dose [place] mg 00 on [facility] 10/25/22 at Branch 0800, Until Discontinu ed, Routine levETIRAcet 2022- No 500mg 500 mg, IV Univers am (KEPPRA) 10-25 0220 Piggyback, i ty of in NACL 14:00: 01:39 Q12H, [place] (ISO-OS) 00 :32 First dose Medic al 500 mg/100 on [facility] mL RTU 10/25/22 at 0800, Until Discontinu ed, Administer over 15 Minutes, 100 mL carvediloL 2022- No 6.25mg 6.25 mg, Univers (COREG) 10-25-15 Oral, BID ity of tablet 6.25 14:00: 21:58 MEALS, [place] as mg 00 :13 First dose Medical on [facility] 10/25/22 at 0800, Until Discontinu ed, Routine Sliding Yes Subcutaneo Univ ers Scale 2-14 us, AC+HS, ity of Insulin-Reg 13:30: First dose [place] ular + Fsbg 00 on Medica l Testing 10/25/22 at Branch 0730, Until Discontinu ed, Routine iopamidol 0 2022- No [id number] 80mL 80 mL, U nivers (ISOVUE 2-14 02-14 Intravenou ity o f 370-500 mL) 10:15: 10:30 s, ONCE, 1 [place] injection 00 :00 dose, On Medica l 80 mL Mon10/25/22 at 0430, Routine sodium 0 Yes 1g [...] Until Discontinu ed, Routine, Agitation, Sedation polyethylen Yes 17g 17 g, Unive rs e glycol 2-14 Oral, ity of 3350 powder 07:18: QDAILYPRN, [place] 17 g 09 Starting Medical on Mon10/25/22 at 0118, Until Discontinu ed, Routine, Constipati on dextrose 2022-0 Yes 250mL 250 mL, IV Un teo 10% (D10W) 2-14 Infusion, ity of bolus 07:07: PRN - SEE [place] infusion 04 INSTRUCTIO Medic al 250 mL [...] 00 Starting Medical injection 1 on Mon [facility] 10/25/22 at 0107, Until Discontinu ed, YOKO, [...] IV Push, ity of (PF)) 06:56: Q6HPRN, [place] injection 4 23 Starting Medi joyce mg on [facility] 10/25/22 at 0056, Until Discontinu ed, Routine, Nausea and Vomiting (N/V) acetaminoph 2022-0 Yes 650mg 650 mg, Un teo en 10-25 Oral, ity of (TYLENOL) 06:55: Q6HPRN, [place] tablet 650 49 Starting Medic al mg on [facility] 10/25/22 at 0055, Until Discontinu ed, Routine, Pain (scale 1-3) cefTRIAXone 2022-0 202- No 1000mg 1,000 mg, Univers (ROCEPHIN) 10-25 IV ity of 1,000 mg in 01:00: 01:42 Piggyback, [place] NaCl 0.9% 00 :00 ONCE, 1 Medical (NS) 50 mL dose, On [facility] h [facility]I-[facility] 10/24/22 at 1900, Administer over 30 Minutes, 50 mL
Reas on for Anti-Infec tive: Documented Infection< br>Documen timur Infection Site: Urine<br&g t;Duration of Therapy: Other (see Comments) LORazepam 2022-0 2022- No 1mg 1 mg, Slow U nivers (ATIVAN) 10-25 IV Push, ity of injection 1 01:00: 01:09 ONCE, 1 [place] mg 00 :00 dose, On [facility] 10/24/22 at 1900, STAT amLODIPine 2022-0 Yes 5mg Take 5 mg [place] 5 mg tablet 10-08 by mouth ity of 13:19: at [place] [address] bedtime. Medical Branch aspirin 81 2022-0 Yes 81mg Take 81 mg U nivers mg EC 10-08 by mouth ity of tablet 13:19: in the [place] [address] morning. Medical Branch lisinopriL 2022-0 Yes 20mg Take 20 mg U nivers 20 mg 10-08 by mouth ity of tablet 13:19: in the [place] [address] morning Medical and 20 mg Branch in the evening. metFORMIN 2022-0 Yes 500mg Take 500 Uni vers 500 mg 1-28 mg by ity of tablet 13:19: mouth in [place] [address] the Medical morning Branch and 500 mg in the evening. Take with meals. pantoprazol 2022-0 Yes 40mg Take 40 mg Univers e 10-08 by mouth ity of (PROTONIX) 13:19: in the [place] 20 mg EC morning. Medical tablet Branch tamsulosin 2022-0 Yes Take by [facility] ers (FLOMAX) 10-08 mouth ity of 0.4 mg 24 13:19: daily. [place] hr capsule 28 Medical Branch FLUoxetine 2022-0 Yes 20mg Take 20 mg U nivers 20 mg 10-08 by mouth ity of capsule 13:19: in the [place] [address] morning. Medical Branch gabapentin 2022-0 Yes 300mg Take 300 Un teo 300 mg - mg by ity of capsule 13:19: mouth 2 [place] [address] (two) Medical times Branch daily as needed. levETIRAcet 2022-0 Yes 250mg Take 250 U nivers am (KEPPRA) 10-08 mg by ity of 250 mg 13:19: mouth in [place] tablet 28 the Medical morning Branch and 250 mg in the evening. memantine 2022-0 Yes 10mg Take 10 mg Un te[place] 10 mg 10-08 by mouth ity of tablet 13:19: in the [place] [address] morning Medical and 10 mg Branch in the evening. simvastatin 2022-0 Yes 20mg Take 20 mg Univers 20 mg 10-08 by mouth ity of tablet 13:19: at [place] [address] bedtime. Medical Branch amLODIPine 2022-0 Yes 5mg Take 5 mg [place] te[place] 5 mg tablet 10-08 by mouth ity of 13:19: at [place] [address] bedtime. Medical Branch aspirin 81 2022-0 Yes 81mg Take 81 mg U nivers mg EC 10-08 by mouth ity of tablet 13:19: in the [place] [address] morning. Medical Branch lisinopriL 2022-0 Yes 20mg Take 20 mg U nivers 20 mg 10-08 by mouth ity of tablet 13:19: in the [place] [address] morning Medical and 20 mg Branch in the evening. metFORMIN 2022-0 Yes 500mg Take 500 Uni vers 500 mg - mg by ity of tablet 13:19: mouth in [place] [address] the Medical morning Branch and 500 mg in the evening. Take with meals. pantoprazol 2022-0 Yes 40mg Take 40 mg Univers e 10-08 by mouth ity of (PROTONIX) 13:19: in the [place] 20 mg EC 28 morning. Medical tablet Branch tamsulosin 2022-0 Yes Take by [facility] ers (FLOMAX) 10-08 mouth ity of 0.4 mg 24 13:19: daily. [place] hr capsule 28 Medical Branch FLUoxetine 2022-0 Yes 20mg Take 20 mg U nivers 20 mg 10-08 by mouth ity of capsule 13:19: in the [place] [address] morning. Medical Branch gabapentin 2022-0 Yes 300mg Take 300 Un teo 300 mg - mg by ity of capsule 13:19: mouth 2 [place] [address] (two) Medical times Branch daily as needed. levETIRAcet 2022-0 Yes 250mg Take 250 U nivers am (KEPPRA) 10-08 mg by ity of 250 mg 13:19: mouth in [facility] 28 the Medical morning Branch and 250 mg in the evening. memantine 2022-0 Yes 10mg Take 10 mg Un teo 10 mg 10-08 by mouth ity of tablet 13:19: in the [place] [address] morning Medical and 10 mg Branch in the evening. simvastatin 2022-0 Yes 20mg Take 20 mg Univers 20 mg 10-08 by mouth ity of tablet 13:19: at [place] [address] bedtime. Medical Branch amLODIPine 2022-0 Yes 5mg Take 5 mg Un te[place] 5 mg tablet 10-08 by mouth ity of 13:19: at [place] [address] bedtime. Medical Branch aspirin 81 3-0 Yes 81mg Take 81 mg U nivers mg EC 10-08 by mouth ity of tablet 13:19: in the [place] [address] morning. Medical Branch lisinopriL 2022-0 Yes 20mg Take 20 mg U nivers 20 mg 10-08 by mouth ity of tablet 13:19: in the [place] [address] morning Medical and 20 mg Branch in the evening. metFORMIN 3-0 Yes 500mg Take 500 Uni vers 500 mg - mg by ity of tablet 13:19: mouth in [place] [address] the Medical morning Branch and 500 mg in the evening. Take with meals. pantoprazol 3-0 Yes 40mg Take 40 mg Univers e 10-08 by mouth ity of (PROTONIX) 13:19: in the [place] 20 mg EC 28 morning. Medical tablet Branch tamsulosin 2022-0 Yes Take by [facility] ers (FLOMAX) 10-08 mouth ity of 0.4 mg 24 13:19: daily. [place] hr capsule 28 Medical Branch FLUoxetine 2022-0 Yes 20mg Take 20 mg U nivers 20 mg 10-08 by mouth ity of capsule 13:19: in the [place] morning. Medical Branch gabapentin 2022-0 Yes 300mg Take 300 Un teo 300 mg - mg by ity of capsule 13:19: mouth 2 [place] 28 (two) Medical times Branch daily as needed. levETIRAcet 2022-0 Yes 250mg Take 250 U nivers am (KEPPRA) 10-08 mg by ity of 250 mg 13:19: mouth in [place] tablet 28 the Medical morning Branch and 250 mg in the evening. memantine 2022-0 Yes 10mg Take 10 mg Un teo 10 mg 10-08 by mouth ity of tablet 13:19: in the [place] morning Medical and 10 mg Branch in the evening. simvastatin 0 Yes 20mg Take 20 mg Univers 20 mg 10-08 by mouth ity of tablet 13:19: at [place] [address] bedtime. Medical Branch Sliding Yes Subcutaneo Univ ers Scale 10-08 us, TID ity of [...] ity of bolus 03:32: PRN - SEE [place] infusion 30 INSTRUCTIO Medic al 250 mL [...] 30 Starting Medical injection 1 on Mon [facility] 10/07/22 at 2132, Until Discontinu ed, YOKO, Blood Glucose < or = 70 mg/dL and patient is NPO, unable to swallow or has mental changes. dextrose 2022-0 2022- No 250mL 250 mL, IV U nivers 10% (D10W) 10-08 Infusion, ity of bolus 03:32: 21:19 PRN - SEE [place] infusion 30 :30 INSTRUCTIO Medic al 250 [...] changes. sennosides- 0 Yes 1{tbl} 1 tablet, Univers docusate 10-07 Oral, ity of sodium 15:00: DAILY, [place] (SENOKOT-S) 00 First dose Me dical 8.6-50 mg on Mon per tablet 10/07/22 at 1 tablet 0900, Until Discontinu ed, Routine tamsulosin Yes .4mg 0.4 mg, Univ ers (FLOMAX) 10-07 Oral, ity of capsule 0.4 15:00: DAILY, [place] mg 00 First dose Medical on Mon Branch 10/07/22 at 0900, Until Discontinu ed, Routine pantoprazol 0 Yes 40mg 40 mg, Univ ers e [...] at 0900, Until Discontinu ed, Routine sennosides- 2022-0 202- No 1{tbl} 1 tablet, Univers docusate 10-07 Oral, ity of sodium 15:00: 21:19 DAILY, [place] (SENOKOT-S) 00 :30 First dose Me dical [...] Until Discontinu ed, Routine hydralAZINE 2022- No [id number] 10mg 10 mg, Univers (APRESOLINE 10-07 Slow IV ity of ) injection 12:15: 11:26 [place] 10 mg 00 :00 ONCE, 1 Medical dose, On Branch Mon10/07/22 at 0615, STAT hydralAZINE 2022- No [id number] 10mg 10 mg, Univers (APRESOLINE 10-07 Slow IV ity of ) injection 12:15: 11:26 [place] 10 mg 00 :00 ONCE, 1 Medical dose, On Branch Mon10/07/22 at 0615, STAT simvastatin 2023-0 Yes 20mg 20 mg, Univ ers (ZOCOR) 10-07 Oral, QHS, ity of tablet 20 03:00: First dose [place] mg 00 on [facility] 10/06/22 at [place] 2100, Until Discontinu ed, Routine amLODIPine 0 Yes 5mg 5 mg, Univer s (NORVASC) 10-07 Oral, QHS, ity of tablet 5 mg 03:00: First dose [place] 00 on [facility] 10/06/22 at [place] 2099, Until Discontinu ed, Routine simvastatin 2022- No 20mg 20 mg, Uni vers (ZOCOR) 10-07 Oral, QHS, ity o f tablet 20 03:00: 21:19 First dose [place] mg 00 :30 on [facility] 10/06/22 at [place] 2099, Until Discontinu ed, Routine amLODIPine 2022- No 5mg 5 mg, Unive rs (NORVAS) 10-07 Oral, QHS, ity of tablet 5 mg 03:00: 21:19 First dose [place] 00 :30 on [facility] 10/06/22 at [place] 2099, Until Discontinu ed, Routine levETIRAcet Yes 250mg 250 mg, [place] am (KEPPRA) 10-07 Oral, BID, it y of tablet 250 02:00: First dose [place] mg 00 on [facility] 10/06/22 at [place] 2000, Until Discontinu ed, Routine levETIRAcet 2022- No 250mg 250 mg, U nivers am (KEPPRA) 10-07 Oral, BID, i ty of tablet 250 02:00: 21:19 First dose [place] mg 00 :30 on [facility] 10/06/22 at [place] 2000, Until Discontinu ed, Routine carvediloL 2022- No [id number] 6.25mg Take 1 Univers 6.25 mg 10-07 tablet by ity of tablet 00:00: 05:59 mouth in [place] 00 :00 the Medical morning Branch and 1 tablet in the evening. Take with meals. Do all this for 30 days. carvediloL 2022- No [id number] 6.25mg Take 1 Univers 6.25 mg 1-27 02-27 tablet by ity of tablet 00:00: 05:59 mouth in [place] 00 :00 the Medical morning Branch and 1 tablet in the evening. Take with meals. Do all this for 30 days. carvediloL 2022-0 2022- No [id number] 6.25mg Take 1 Univers 6.25 mg 1-27 02-27 tablet by ity of tablet 00:00: 05:59 mouth in [place] 00 :00 the [facility] morning Branch and 1 tablet in the evening. Take with meals. Do all this for 30 days. carvediloL 2022-0 2022- No [id number] 6.25mg Take 1 Univers 6.25 mg -27 02-16 tablet by ity of tablet 00:00: 00:00 mouth in [place] 00 :00 the [facility] morning Branch and 1 tablet in the evening. Take with meals. Do all this for 30 days. lactated 2022-0 2022- No 500mL at 200 Unive rs ringers IV 10-06 mL/hr, 500 it y of infusion 20:15: 13:51 mL, [place] 500 mL 00 :00 Intravenou Medical s, ONCE, 1 Branch dose, On [facility] 10/06/22 at 1415, Routine lactated 2022-0 2022- No 500mL at 200 Unive rs ringers IV 10-0627 mL/hr, 500 it y of infusion 20:15: 13:51 mL, [place] 500 mL 00 :00 Intravenou Medical s, ONCE, 1 Branch dose, On [facility] 10/06/22 at 1415, Routine hydralAZINE 2022-0 2022- No 10mg 10 mg, Uni vers (APRESOLINE 10-06 Slow IV ity of ) injection 20:00: 19:15 [place] 10 mg 00 :00 ONCE, 1 Medical dose, On Branch [facility] 10/06/22 at 1400, STAT hydralAZINE 2022-0 2022- No 10mg 10 mg, Uni vers (APRESOLINE 10-06 Slow IV ity of ) injection 20:00: 19:15 [place] 10 mg 00 :00 ONCE, 1 Medical dose, On Branch [facility] 10/06/22 at 1400, STAT carvediloL 2022-0 Yes 6.25mg 6.25 mg, U nivers (COREG) 10-06 Oral, BID ity of tablet 6.25 19:30: MEALS, [place] mg 00 First dose Medical (after Branch last modificati on) on [facility] 10/06/22 at 1330, Until Discontinu ed, Routine carvediloL 2022-0 2022- No 6.25mg 6.25 mg, Univers (COREG) 10-06 Oral, BID ity of tablet 6.25 19:30: 21:19 MEALS, [place] mg 00 :30 First dose Medical (after Branch last modificati on) on [place] 10/06/22 at 1330, Until Discontinu ed, Routine lisinopriL 0 Yes 20mg 20 mg, Unive rs (PRINIVIL,Z 10-06 Oral, BID, it y of ESTRIL) 17:45: First dose [place] tablet 20 00 (after Medical mg last Branch modificati on) on [facility] 10/06/22 at 1145, Until Discontinu ed, Routine lisinopriL 0 2022- No 20mg 20 mg, Univ ers (PRINIVIL,Z 10-06 Oral, BID, i ty of ESTRIL) 17:45: 21:19 First dose [place] tablet 20 00 :30 (after Medical mg last Branch modificati on) on [facility] 10/06/22 at 1145, Until Discontinu ed, Routine acetaminoph 2022-0 Yes 650mg 650 mg, Un teo en 10-06 Oral, ity of (TYLENOL) 17:33: Q6HPRN, [place] tablet 650 13 Starting Medic al mg on [facility] Branch 10/06/22 at 1133, Until Discontinu ed, Routine, Pain (scale 1-3) acetaminoph 2022-0 2022- No 650mg 650 mg, U nivers en 10-06 Oral, ity of (TYLENOL) 17:33: 21:19 Q6HPRN, [place] tablet 650 13 :30 Starting Medic al mg on [place] Branch 10/06/22 at 1133, Until 10/08/22 at [...] at 1519, Routine, Pain (scale 4-6) hydralAZINE 2022- No [id number] 10mg 10 mg, Univers (APRESOLINE 10-06 Slow IV ity of ) injection 17:30: 16:31 [place] 10 mg 00 :00 ONCE, 1 Medical dose, On Branch [facility] 10/06/22 at 1130, STAT hydralAZINE 2022- No [id number] 10mg 10 mg, Univers (APRESOLINE 10-06 Slow IV ity of ) injection 17:30: 16:31 [place] 10 mg 00 :00 ONCE, 1 Medical dose, On Branch [facility] 10/06/22 at 1130, STAT lidocaine 2022- No ONCE INTRA U nivers 1% (PF) 10-06 PROCEDURE, ity o f (XYLOCAINE) 14:22: 15:52 Starting [place] injection 52 :21 on [facility] 10/06/22 at Branch 0822, Until [facility] 10/06/22 at 0952, Routine, CV Intraproce dure iodixanol 2022- No ONCE INTRA U nivers (VISIPAQUE 10-06 PROCEDURE, it y of 320-100 mL) 14:03: 15:52 Starting [place] injection 41 :21 on [facility] 10/06/22 at Branch 0803, Until [facility] 10/06/22 at 0952, Routine, CV Intraproce dure hydralAZINE 2022-0 2022- No [id number] 10mg Inject 0.5 Univers 20 mg/mL 1-26 01-27 mL ity of injection 00:00: 00:00 intravenou [place] 00 :00 sly once Medical now for 1 Branch dose. hydralAZINE 2022- No [id number] 10mg Inject 0.5 Univers 20 mg/mL 10-06 01-27 mL ity of injection 00:00: 00:00 intravenou [place] 00 :00 sly once Medical now for 1 Branch dose. amitriptyli 2021-09- No [id number] 25mg Take 1 Univers ne 25 mg 0-23 10-31 tablet by ity o f tablet 00:00: 04:59 mouth at [place] 00 :00 bedtime Medical for 7 Branch days. amitriptyli 2021-09- No [id number] 25mg Take 1 Univers ne 25 mg 0-23 10-31 tablet by ity o f tablet 00:00: 04:59 mouth at [place] 00 :00 bedtime Medical for 7 Branch days. amitriptyli 2021-09- No [id number] 25mg Take 1 Univers ne 25 mg 0-23 10-31 tablet by ity o f tablet 00:00: 04:59 mouth at [place] 00 :00 bedtime Medical for 7 Branch days. amitriptyli 2021-09- No [id number] 25mg Take 1 Univers ne 25 mg 0-23 10-31 tablet by ity o f tablet 00:00: 04:59 mouth at [place] 00 :00 bedtime Medical for 7 Branch days. tamsulosin 2021-09 Yes .4mg 0.4 mg, Univ ers (FLOMAX) 0-16 Oral, QHS, ity o f capsule 0.4 02:00: First dose [place] mg 00 on [facility] 06/25/22 Branch at 2100, Until Discontinu ed, Routine amLODIPine 2021-09 Yes 5mg 5 mg, Univer s (NORVASC) 0-16 Oral, QHS, ity of tablet 5 mg 02:00: First dose [place] 00 on [facility] 06/25/22 Branch at 2100, Until Discontinu ed, Routine tamsulosin 2021-09- No .4mg 0.4 mg, Uni vers (FLOMAX) 0-16 10-15 Oral, QHS, ity of capsule 0.4 02:00: 21:09 First dose [place] mg 00 :41 on [facility] Medical 06/25/22 Branch at 2100, Until Discontinu ed, Routine amLODIPine 2021-09- No 5mg 5 mg, Unive rs (NORVASC) 0-16 10-15 Oral, QHS, ity of tablet 5 mg 02:00: 21:09 First dose [place] 00 :41 on [facility] Medical 06/25/22 Branch at 2100, Until Discontinu ed, Routine pantoprazol 2021-09- No [id number] 40mg Take 1 Univers e 0-16 01-15 tablet by ity of (PROTONIX) 00:00: 05:59 mouth in [place] 40 mg EC 00 :00 the Medical tablet morning Branch for 90 days. vitamin 2021-09- No [id number] 1000ug Take 1 U nivers B-12 1,000 0-16 01-15 tablet by ity of mcg tablet 00:00: 05:59 mouth in [place] 00 :00 the Medical morning Branch for 90 days. pantoprazol 2021-09- No [id number] 40mg Take 1 Univers e 0-16 01-15 tablet by ity of (PROTONIX) 00:00: 05:59 mouth in [place] 40 mg EC 00 :00 the Medical tablet morning Branch for 90 days. vitamin 2021-09- No [id number] 1000ug Take 1 U nivers B-12 1,000 0-16 01-15 tablet by ity of mcg tablet 00:00: 05:59 mouth in [place] 00 :00 the Medical morning Branch for 90 days. pantoprazol 2021-09- No [id number] 40mg Take 1 Univers e 0-16 01-15 tablet by ity of (PROTONIX) 00:00: 05:59 mouth in [place] 40 mg EC 00 :00 the Medical tablet morning Branch for 90 days. vitamin 2021-09- No [id number] 1000ug Take 1 U nivers B-12 1,000 0-16 01-15 tablet by ity of mcg tablet 00:00: 05:59 mouth in [place] 00 :00 the Medical morning Branch for 90 days. pantoprazol 2021-09- No [id number] 40mg Take 1 Univers e 0-16 01-15 tablet by ity of (PROTONIX) 00:00: 05:59 mouth in [place] 40 mg EC 00 :00 the Medical tablet morning Branch for 90 days. vitamin 2021-09- No [id number] 1000ug Take 1 U nivers B-12 1,000 0-16 01-15 tablet by ity of mcg tablet 00:00: 05:59 mouth in [place] 00 :00 the Medical morning Branch for 90 days. pantoprazol 2021-09- No [id number] 40mg Take 1 Univers e 0-16 01-15 tablet by ity of (PROTONIX) 00:00: 05:59 mouth in [place] 40 mg EC 00 :00 the Medical tablet morning Branch for 90 days. vitamin 2021-09- No [id number] 1000ug Take 1 U nivers B-12 1,000 0-16 01-15 tablet by ity of mcg tablet 00:00: 05:59 mouth in [place] 00 :00 the Medical morning Branch for 90 days. pantoprazol 2021-09- No [id number] 40mg Take 1 Univers e 0-16 01-15 tablet by ity of (PROTONIX) 00:00: 05:59 mouth in [place] 40 mg EC 00 :00 the Medical tablet morning Branch for 90 days. vitamin 2021-09- No [id number] 1000ug Take 1 U nivers B-12 1,000 0-16 01-15 tablet by ity of mcg tablet 00:00: 05:59 mouth in [place] 00 :00 the Medical morning Branch for 90 days. pantoprazol 2021-09- No [id number] 40mg Take 1 Univers e 0-16 01-15 tablet by ity of (PROTONIX) 00:00: 05:59 mouth in [place] 40 mg EC 00 :00 the Medical tablet morning Branch for 90 days. vitamin 2021-09- No [id number] 1000ug Take 1 U nivers B-12 1,000 0-16 01-15 tablet by ity of mcg tablet 00:00: 05:59 mouth in [place] 00 :00 the Medical morning Branch for 90 days. pantoprazol 2021-09- No [id number] 40mg Take 1 Univers e 0-16 01-15 tablet by ity of (PROTONIX) 00:00: 05:59 mouth in [place] 40 mg EC 00 :00 the Medical tablet morning Branch for 90 days. vitamin 2021-09- No [id number] 1000ug Take 1 U nivers B-12 1,000 0-16 01-15 tablet by ity of mcg tablet 00:00: 05:59 mouth in [place] 00 :00 the Medical morning Branch for 90 days. pantoprazol 2021-09- No [id number] 40mg Take 1 Univers e 0-16 01-15 tablet by ity of (PROTONIX) 00:00: 05:59 mouth in [place] 40 mg EC 00 :00 the Medical tablet morning Branch for 90 days. vitamin 2021-09- No [id number] 1000ug Take 1 U nivers B-12 1,000 0-16 01-15 tablet by ity of mcg tablet 00:00: 05:59 mouth in [place] 00 :00 the Medical morning Branch for 90 days. pantoprazol 2021-09- No [id number] 40mg Take 1 Univers e 0-16 01-15 tablet by ity of (PROTONIX) 00:00: 05:59 mouth in [place] 40 mg EC 00 :00 the Medical tablet morning Branch for 90 days. vitamin 2021-09- No [id number] 1000ug Take 1 U nivers B-12 1,000 [...] dose, On 06/25/22 at 0900, Routine vitamin 2021-09 No 1000ug 1,000 mcg, U nivers B-12 0-15 10-15 Oral, ity of (CYANOCOBAL 14:00: 21:09 DAILY, [place]ODY) 00 :41 First dose Medical tablet (after Branch 1,000 mcg last modificati on) on [facility] 06/25/22 at 0900, Until Discontinu ed, Routine KCL 2021-09- No 40meq 40 mEq, Univers (KLOR-CON 0-15 10-15 Oral, ity of M20) tablet 13:45: 13:34 ONCE, 1 [place] 40 mEq 00 :00 dose, On Medical [facility] 06/25/22 at 0845, Routine levETIRAcet 2021-09 Yes 250mg 250 mg, [place] teo am (KEPPRA) 0-15 Oral, BID, it y of tablet 250 13:00: First dose [place] mg 00 on [facility] 06/25/22 Branch at 0800, Until Discontinu ed, Routine levETIRAcet 2021-09- No 250mg 250 mg, U nivers am (KEPPRA) 0-15 10-15 Oral, BID, i ty of tablet 250 13:00: 21:09 First dose [place] mg 00 :41 on [facility] 06/25/22 Branch at 0800, Until Discontinu ed, [...] 00:00 [place] 24 :00 Medical Branch PEPCID 2021-09- No prn Univers MG ORAL TAB 0-15 10-15 ity of 12:45: 00:00 [place] 24 :00 Medical Branch B COMPLEX 1 2021-09- No None Unive rs ORAL TAB 0-15 10-15 Entered ity of 12:45: 00:00 [place] 24 :00 Medical Branch M-VIT ORAL 2021-09- No None Univer s 0-15 10-15 Entered ity of 12:45: 00:00 [place] 24 :00 Medical Branch metFORMIN 2021-09- No [id number] 500mg Take 1 Univers 500 mg 0-15 - tablet by ity of tablet 00:00: 05:59 mouth in [place] 00 :00 the Medical morning Branch and 1 tablet in the evening. Take with meals. Do all this for 90 days. tamsulosin 2021-09- No [id number] .4mg Take 1 Univers 0.4 mg 24 - capsule by ity of hr capsule 00:00: 05:59 mouth at [place] 00 :00 bedtime Medical for 90 Branch days. amLODIPine 2021-09- No [id number] 5mg Take 1 Univers 5 mg tablet 09-24 tablet by it y of 00:00: 05:59 mouth at [place] 00 :00 bedtime Medical for 90 Branch days. levETIRAcet 2021-09- No [id number] 250mg Take 1 Univers am 250 mg 09-24 tablet by ity of tablet 00:00: 05:59 mouth in [place] 00 :00 the Medical morning Branch and 1 tablet in the evening. Do all this for 90 days. lisinopriL 2021-09- No [id number] 20mg Take 1 Univers 20 mg 009-24 tablet by ity of tablet 00:00: 05:59 mouth in [place] 00 :00 the Medical morning Branch and 1 tablet in the evening. Do all this for 90 days. FLUoxetine 2021-09- No [id number] 20mg Take 1 Univers 20 mg 0- capsule by ity of capsule 00:00: 05:59 mouth in [place] 00 :00 the [facility] morning [place] for 90 days. memantine 2021-09- No [id number] 10mg Take 1 U nivers 10 mg 015 - tablet by ity of tablet 00:00: 05:59 mouth in [place] 00 :00 the [facility] morning Branch and 1 tablet in the evening. Do all this for 90 days. pyridostigm 2021-09- No [id number] 60mg Take 1 Univers ine 60 mg 0- tablet by ity of tablet 00:00: 05:59 mouth as [place] 00 :00 needed for Medical Other Branch (HYPOTENSI ON) for up to 90 days. simvastatin 2021-09- No [id number] 20mg Take 1 Univers 20 mg 0-15 -14 tablet by ity of tablet 00:00: 05:59 [facility] [place] [facility] aspirin 81 2021-09- No [id number] 81mg Take 1 Univers mg chewable 0-15 -14 tablet by it y of tablet 00:00: 05:59 mouth in [place] 00 :00 the Medical morning Branch for 90 days. metFORMIN 2021-09- No [id number] 500mg Take 1 Univers 500 mg 0-15 -14 tablet by ity of tablet 00:00: 05:59 mouth in [place] 00 :00 the Medical morning Branch and 1 tablet in the evening. Take with meals. Do all this for 90 days. tamsulosin 2021-09- No [id number] .4mg Take 1 Univers 0.4 mg 24 0- capsule by ity of hr capsule 00:00: 05:59 mouth at [facility] amLODIPine 2021-09- No [id number] 5mg Take 1 Univers 5 mg tablet 0- tablet by it y of 00:00: 05:59 mouth at [place] [facility] levETIRAcet 2021-09- No [id number] 250mg Take 1 Univers am 250 mg 0-25 09-14 tablet by ity of tablet 00:00: 05:59 mouth in [place] 00 :00 the Medical morning Branch and 1 tablet in the evening. Do all this for 90 days. lisinopriL 2021-09- No [id number] 20mg Take 1 Univers 20 mg 0-15 -14 tablet by ity of tablet 00:00: 05:59 mouth in [place] 00 :00 the Medical morning Branch and 1 tablet in the evening. Do all this for 90 days. FLUoxetine 2021-09- No [id number] 20mg Take 1 Univers 20 mg 0-15 -14 capsule by ity of capsule 00:00: 05:59 mouth in [place] 00 :00 the [facility] morning [place] for 90 days. memantine 2021-09- No [id number] 10mg Take 1 U nivers 10 mg 0-15 - tablet by ity of tablet 00:00: 05:59 mouth in [place] 00 :00 the Medical morning Branch and 1 tablet in the evening. Do all this for 90 days. pyridostigm 2021-09- No [id number] 60mg Take 1 Univers ine 60 mg 0-15 09-24 tablet by ity of tablet 00:00: 05:59 mouth as [place] 00 :00 needed for Medical Other Branch (HYPOTENSI ON) for up to 90 days. simvastatin 2021-09- No [id number] 20mg Take 1 Univers 20 mg 009-24 tablet by ity of tablet 00:00: 05:59 mouth at [place] 00 :00 bedtime Medical for 90 Branch days. aspirin 81 2021-09- No [id number] 81mg Take 1 Univers mg chewable 009-24 tablet by it y of tablet 00:00: 05:59 mouth in [place] 00 :00 the Medical morning Branch for 90 days. KCL 20 mEq 2021-09- No [id number] 40meq Take 2 Univers tablet 009-24 tablets by ity of 00:00: 05:59 mouth in [place] 00 :00 the Medical morning Branch for 90 days. metFORMIN 2021-09- No [id number] 500mg Take 1 Univers 500 mg 009-24 tablet by ity of tablet 00:00: 05:59 mouth in [place] 00 :00 the Medical morning Branch and 1 tablet in the evening. Take with meals. Do all this for 90 days. tamsulosin 2021-09- No [id number] .4mg Take 1 Univers 0.4 mg 24 09-24 capsule by ity of hr capsule 00:00: 05:59 mouth at [place] 00 :00 bedtime Medical for 90 Branch days. amLODIPine 2021-09- No [id number] 5mg Take 1 Univers 5 mg tablet 009-24 tablet by it y of 00:00: 05:59 mouth at [place] 00 :00 bedtime Medical for 90 Branch days. levETIRAcet 2021-09- No [id number] 250mg Take 1 Univers am 250 mg 09-24 tablet by ity of tablet 00:00: 05:59 mouth in [place] 00 :00 the Medical morning Branch and 1 tablet in the evening. Do all this for 90 days. lisinopriL 2021-09- No [id number] 20mg Take 1 Univers 20 mg 0-15 -14 tablet by ity of tablet 00:00: 05:59 mouth in [place] 00 :00 the Medical morning Branch and 1 tablet in the evening. Do all this for 90 days. FLUoxetine 2021-09- No [id number] 20mg Take 1 Univers 20 mg 0-15 -14 capsule by ity of capsule 00:00: 05:59 mouth in [place] 00 :00 the [facility] for 90 days. memantine 2021-09- No [id number] 10mg Take 1 U nivers 10 mg 0-15 -14 tablet by ity of tablet 00:00: 05:59 mouth in [place] 00 :00 the [facility] morning Branch and 1 tablet in the evening. Do all this for 90 days. pyridostigm 2021-09- No [id number] 60mg Take 1 Univers ine 60 mg 0-25 09- tablet by ity of tablet 00:00: 05:59 mouth as [place] 00 :00 needed for Medical Other Branch (HYPOTENSI ON) for up to 90 days. simvastatin 2021-09- No [id number] 20mg Take 1 Univers 20 mg 0-15 -14 tablet by ity of tablet 00:00: 05:59 mouth at [place] 00 :00 bedtime Medical for 90 Branch days. aspirin 81 2021-09- No [id number] 81mg Take 1 Univers mg chewable 0-25 09-14 tablet by it y of tablet 00:00: 05:59 mouth in [place] 00 :00 the [facility] morning [place] for 90 days. KCL 20 mEq 2021-09- No [id number] 40meq Take 2 Univers tablet 015 -14 tablets by ity of 00:00: 05:59 mouth in [place] 00 :00 the [facility] morning Branch for 90 days. metFORMIN 2021-093- No [id number] 500mg Take 1 [facility] 500 mg 0-15 -14 tablet by ity of tablet 00:00: 05:59 mouth in [place] 00 :00 the Medical morning Branch and 1 tablet in the evening. Take with meals. Do all this for 90 days. tamsulosin 2021-09- No [id number] .4mg Take 1 Univers 0.4 mg 24 0-15 -14 capsule by ity of hr capsule 00:00: 05:59 mouth at [place] 00 :00 bedtime Medical for 90 Branch days. amLODIPine 2021-09- No [id number] 5mg Take 1 Univers 5 mg tablet 015 -14 tablet by it y of 00:00: 05:59 mouth at [place] 00 :00 bedtime Medical for 90 Branch days. levETIRAcet 2021-09- No [id number] 250mg Take 1 Univers am 250 mg 0-15 -14 tablet by ity of tablet 00:00: 05:59 mouth in [place] 00 :00 the Medical morning Branch and 1 tablet in the evening. Do all this for 90 days. lisinopriL 2021-09- No [id number] 20mg Take 1 Univers 20 mg 0-15 -14 tablet by ity of tablet 00:00: 05:59 mouth in [place] 00 :00 the Medical morning Branch and 1 tablet in the evening. Do all this for 90 days. FLUoxetine 2021-09- No [id number] 20mg Take 1 [facility] 20 mg 0-15 -14 capsule by ity of capsule 00:00: 05:59 mouth in [place] 00 :00 the Medical morning Branch for 90 days. memantine 2021-09- No [id number] 10mg Take 1 U nivers 10 mg 0-15 -14 tablet by ity of tablet 00:00: 05:59 mouth in [place] 00 :00 the Medical morning Branch and 1 tablet in the evening. Do all this for 90 days. pyridostigm 2021-09- No [id number] 60mg Take 1 Univers ine 60 mg 0-15 -14 tablet by ity of tablet 00:00: 05:59 mouth as [place] 00 :00 needed for Medical Other Branch (HYPOTENSI ON) for up to 90 days. simvastatin 2021-09- No [id number] 20mg Take 1 Univers 20 mg 0-15 -14 tablet by ity of tablet 00:00: 05:59 mouth at [place] 00 :00 bedtime Medical for 90 Branch days. aspirin 81 2021-09- No [id number] 81mg Take 1 Univers mg chewable 0-15 -14 tablet by it y of tablet 00:00: 05:59 mouth in [place] 00 :00 the [facility] for 90 days. KCL 20 mEq 2021-09- No [id number] 40meq Take 2 Univers tablet 0- tablets by ity of 00:00: 05:59 mouth in [place] 00 :00 the [facility] for 90 days. metFORMIN 2021-09- No [id number] 500mg Take 1 [facility] 500 mg 0- tablet by ity of tablet 00:00: 05:59 mouth in [place] 00 :00 the [facility] morning [place] and 1 tablet in the evening. Take with meals. Do all this for 90 days. tamsulosin 2021-09- No [id number] .4mg Take 1 Univers 0.4 mg 24 09-24 capsule by ity of hr capsule 00:00: 05:59 mouth at [facility] 00 :00 bedtime [facility] for 90 Branch days. amLODIPine 2021-09- No [id number] 5mg Take 1 Univers 5 mg tablet 09-24 tablet by it y of 00:00: 05:59 mouth [facility] [place] [facility] levETIRAcet 2021-09- No [id number] 250mg Take 1 Univers am 250 mg 09-24 tablet by ity of tablet 00:00: 05:59 mouth in [place] 00 :00 the [facility] and 1 tablet in the evening. Do all this for 90 days. lisinopriL 2021-09- No [id number] 20mg Take 1 Univers 20 mg 0- tablet by ity of tablet 00:00: 05:59 mouth in [place] 00 :00 the [facility] and 1 tablet in the evening. Do all this for 90 days. FLUoxetine 2021-09- No [id number] 20mg Take 1 Univers 20 mg 0- capsule by ity of capsule 00:00: 05:59 mouth in [place] 00 :00 the [facility] for 90 days. memantine 2021-09- No [id number] 10mg Take 1 U nivers 10 mg 0-14 tablet by ity of tablet 00:00: 05:59 mouth in [place] 00 :00 the [facility] and 1 tablet in the evening. Do all this for 90 days. pyridostigm 2021-09- No [id number] 60mg Take 1 Univers ine 60 mg 0-15 -14 tablet by ity of tablet 00:00: 05:59 mouth as [place] 00 :00 needed for Medical Other Branch (HYPOTENSI ON) for up to 90 days. simvastatin 2021-09- No [id number] 20mg Take 1 Univers 20 mg 0-15 -14 tablet by ity of tablet 00:00: 05:59 mouth at [place] 00 :00 bedtime Medical for 90 Branch days. aspirin 81 2021-09- No [id number] 81mg Take 1 Univers mg chewable 015 -14 tablet by it y of tablet 00:00: 05:59 mouth in [place] 00 :00 the Medical morning Branch for 90 days. KCL 20 mEq 2021-09- No [id number] 40meq Take 2 Univers tablet 009-24 tablets by ity of 00:00: 05:59 mouth in [place] 00 :00 the Medical morning Branch for 90 days. metFORMIN 2021-09- No [id number] 500mg Take 1 [facility] 500 mg 009-24 tablet by ity of tablet 00:00: 05:59 mouth in [place] 00 :00 the Medical morning Branch and 1 tablet in the evening. Take with meals. Do all this for 90 days. tamsulosin 2021-09- No [id number] .4mg Take 1 Univers 0.4 mg 24 009-24 capsule by ity of hr capsule 00:00: 05:59 mouth at [facility] 00 :00 bedtime Medical for 90 Branch days. amLODIPine 2021-09- No [id number] 5mg Take 1 Univers 5 mg tablet 009-24 tablet by it y of 00:00: 05:59 mouth at [place] 00 :00 bedtime Medical for 90 Branch days. levETIRAcet 2021-09- No [id number] 250mg Take 1 Univers am 250 mg 0- tablet by ity of tablet 00:00: 05:59 mouth in [place] 00 :00 the Medical morning Branch and 1 tablet in the evening. Do all this for 90 days. lisinopriL 2021-09- No [id number] 20mg Take 1 [facility] 20 mg 0-15 -14 tablet by ity of tablet 00:00: 05:59 mouth in [place] 00 :00 the Medical morning Branch and 1 tablet in the evening. Do all this for 90 days. FLUoxetine 2021-09- No [id number] 20mg Take 1 [facility] 20 mg 0-15 -14 capsule by ity of capsule 00:00: 05:59 mouth in [place] 00 :00 the Medical morning Branch for 90 days. memantine 2021-09- No [id number] 10mg Take 1 U nivers 10 mg 0-15 -14 tablet by ity of tablet 00:00: 05:59 mouth in [place] 00 :00 the Medical morning Branch and 1 tablet in the evening. Do all this for 90 days. pyridostigm 2021-09- No [id number] 60mg Take 1 [facility] ine 60 mg 0-15 -14 tablet by ity of tablet 00:00: 05:59 mouth as [place] 00 :00 needed for Medical Other Branch (HYPOTENSI ON) for up to 90 days. simvastatin 2021-09- No [id number] 20mg Take 1 [facility] 20 mg 0-15 -14 tablet by ity of tablet 00:00: 05:59 mouth at [place] 00 :00 bedtime Medical for 90 Branch days. aspirin 81 2021-09- No [id number] 81mg Take 1 Univers mg chewable 0-15 -14 tablet by it y of tablet 00:00: 05:59 mouth in [place] 00 :00 the [facility] morning Branch for 90 days. KCL 20 mEq 2021-09- No [id number] 40meq Take 2 Univers tablet 0-15 -14 tablets by ity of 00:00: 05:59 mouth in [place] 00 :00 the Medical morning Branch for 90 days. metFORMIN 2021-09- No [id number] 500mg Take 1 [facility] 500 mg 0-15 -14 tablet by ity of tablet 00:00: 05:59 mouth in [place] 00 :00 the Medical morning Branch and 1 tablet in the evening. Take with meals. Do all this for 90 days. tamsulosin 2021-09- No [id number] .4mg Take 1 Univers 0.4 mg 24 0-15 -14 capsule by ity of hr capsule 00:00: 05:59 mouth at [place] 00 :00 bedtime Medical for 90 Branch days. amLODIPine 2021-09- No [id number] 5mg Take 1 Univers 5 mg tablet 0- tablet by it y of 00:00: 05:59 mouth at [place] 00 :00 bedtime Medical for 90 Branch days. levETIRAcet 2021-09- No [id number] 250mg Take 1 Univers am 250 mg 0-14 tablet by ity of tablet 00:00: 05:59 mouth in [place] 00 :00 the Medical morning Branch and 1 tablet in the evening. Do all this for 90 days. lisinopriL 2021-09- No [id number] 20mg Take 1 Univers 20 mg 015 09-24 tablet by ity of tablet 00:00: 05:59 mouth in [place] 00 :00 the Medical morning Branch and 1 tablet in the evening. Do all this for 90 days. FLUoxetine 2021-09- No [id number] 20mg Take 1 Univers 20 mg 009-24 capsule by ity of capsule 00:00: 05:59 mouth in [place] 00 :00 the Medical morning Branch for 90 days. memantine 2021-09- No [id number] 10mg Take 1 U nivers 10 mg 009-24 tablet by ity of tablet 00:00: 05:59 mouth in [place] 00 :00 the Medical morning Branch and 1 tablet in the evening. Do all this for 90 days. pyridostigm 2021-09- No [id number] 60mg Take 1 Univers ine 60 mg 009-24 tablet by ity of tablet 00:00: 05:59 mouth as [place] 00 :00 needed for Medical Other Branch (HYPOTENSI ON) for up to 90 days. simvastatin 2021-09- No [id number] 20mg Take 1 Univers 20 mg 015 -14 tablet by ity of tablet 00:00: 05:59 mouth at [place] 00 :00 bedtime Medical for 90 Branch days. aspirin 81 2021-09- No [id number] 81mg Take 1 [facility] mg chewable 0-15 -14 tablet by it y of tablet 00:00: 05:59 mouth in [place] 00 :00 the Medical morning Branch for 90 days. KCL 20 mEq 2021-09- No [id number] 40meq Take 2 Univers tablet 0-14 tablets by ity of 00:00: 05:59 mouth in [place] 00 :00 the [facility] morning [place] for 90 days. metFORMIN 2021-09- No [id number] 500mg Take 1 [facility] 500 mg 0- tablet by ity of tablet 00:00: 05:59 mouth in [place] 00 :00 the [facility] morning [place] and 1 tablet in the evening. Take with meals. Do all this for 90 days. tamsulosin 2021-09- No [id number] .4mg Take 1 Univers 0.4 mg 24 009-24 capsule by ity of hr capsule 00:00: 05:59 mouth [place] 00 :[place] bedtime Medical for 90 Branch days. amLODIPine 2021-09- No [id number] 5mg Take 1 Univers 5 mg tablet 09-24 tablet by it y of 00:00: 05:59 mouth at [place] 00 :00 bedtime [facility] for 90 Branch days. levETIRAcet 2021-09- No [id number] 250mg Take 1 Univers am 250 mg 09-24 tablet by ity of tablet 00:00: 05:59 mouth in [place] 00 :00 the [facility] morning [place] and 1 tablet in the evening. Do all this for 90 days. lisinopriL 2021-09- No [id number] 20mg Take 1 Univers 20 mg 009-24 tablet by ity of tablet 00:00: 05:59 mouth in [place] 00 :00 the [facility] and 1 tablet in the evening. Do all this for 90 days. FLUoxetine 2021-09- No [id number] 20mg Take 1 Univers 20 mg 009-24 capsule by ity of capsule 00:00: 05:59 mouth in [place] 00 :00 the [facility] for 90 days. memantine 2021-09- No [id number] 10mg Take 1 U nivers 10 mg 009-24 tablet by ity of tablet 00:00: 05:59 mouth in [place] 00 :00 the [facility] morning [place] and 1 tablet in the evening. Do all this for 90 days. pyridostigm 2021-09- No [id number] 60mg Take 1 [facility] ine 60 mg 0- tablet by ity of tablet 00:00: 05:59 mouth as [place] 00 :00 needed for Medical Other Branch (HYPOTENSI ON) for up to 90 days. simvastatin 2021-09- No [id number] 20mg Take 1 Univers 20 mg 0-15 -14 tablet by ity of tablet 00:00: 05:59 mouth at [place] 00 :00 bedtime Medical for 90 Branch days. aspirin 81 2021-09- No [id number] 81mg Take 1 Univers mg chewable 0-15 -14 tablet by it y of tablet 00:00: 05:59 mouth in [place] 00 :00 the Medical morning Branch for 90 days. KCL 20 mEq 2021-09- No [id number] 40meq Take 2 Univers tablet 0-15 -14 tablets by ity of 00:00: 05:59 mouth in [place] 00 :00 the Medical morning Branch for 90 days. metFORMIN 2021-09- No [id number] 500mg Take 1 [facility] 500 mg 0-25 09-14 tablet by ity of tablet 00:00: 05:59 mouth in [place] 00 :00 the Medical morning Branch and 1 tablet in the evening. Take with meals. Do all this for 90 days. tamsulosin 2021-09- No [id number] .4mg Take 1 Univers 0.4 mg 24 009-24 capsule by ity of hr capsule 00:00: 05:59 mouth at [facility] 00 :00 bedtime Medical for 90 Branch days. amLODIPine 2021-09- No [id number] 5mg Take 1 Univers 5 mg tablet 009-24 tablet by it y of 00:00: 05:59 mouth at [place] 00 :00 bedtime Medical for 90 Branch days. levETIRAcet 2021-09- No [id number] 250mg Take 1 Univers am 250 mg 015 -14 tablet by ity of tablet 00:00: 05:59 mouth in [place] 00 :00 the Medical morning Branch and 1 tablet in the evening. Do all this for 90 days. lisinopriL 2021-09- No [id number] 20mg Take 1 [facility] 20 mg 0-15 -14 tablet by ity of tablet 00:00: 05:59 mouth in [place] 00 :00 the Medical morning Branch and 1 tablet in the evening. Do all this for 90 days. FLUoxetine 2021-09- No [id number] 20mg Take 1 Univers 20 mg 0-15 -14 capsule by ity of capsule 00:00: 05:59 mouth in [place] 00 :00 the Medical morning Branch for 90 days. memantine 2021-09- No [id number] 10mg Take 1 U nivers 10 mg 0-15 -14 tablet by ity of tablet 00:00: 05:59 mouth in [place] 00 :00 the Medical morning Branch and 1 tablet in the evening. Do all this for 90 days. pyridostigm 2021-09- No [id number] 60mg Take 1 [facility] ine 60 mg 0-15 -14 tablet by ity of tablet 00:00: 05:59 mouth as [place] 00 :00 needed for Medical Other Branch (HYPOTENSI ON) for up to 90 days. simvastatin 2021-09- No [id number] 20mg Take 1 [facility] 20 mg 0-15 -14 tablet by ity of tablet 00:00: 05:59 mouth at [place] 00 :00 bedtime Medical for 90 Branch days. aspirin 81 2021-09- No [id number] 81mg Take 1 Univers mg chewable 009-24 tablet by it y of tablet 00:00: 05:59 mouth in [place] 00 :00 the [facility] morning [place] for 90 days. KCL 20 mEq 2021-09- No [id number] 40meq Take 2 Univers tablet 009-24 tablets by ity of 00:00: 05:59 mouth in [place] 00 :00 the Medical morning Branch for 90 days. metFORMIN 2021-09- No [id number] 500mg Take 1 [facility] 500 mg 009-24 tablet by ity of tablet 00:00: 05:59 mouth in [place] 00 :00 the Medical morning Branch and 1 tablet in the evening. Take with meals. Do all this for 90 days. tamsulosin 2021-09- No [id number] .4mg Take 1 Univers 0.4 mg 24 009-24 capsule by ity of hr capsule 00:00: 05:59 mouth at [place] 00 :00 bedtime Medical for 90 Branch days. amLODIPine 2021-09- No [id number] 5mg Take 1 Univers 5 mg tablet 009-24 tablet by it y of 00:00: 05:59 mouth at [place] 00 :00 bedtime Medical for 90 Branch days. levETIRAcet 2021-09- No [id number] 250mg Take 1 [facility] am 250 mg 015 -14 tablet by ity of tablet 00:00: 05:59 mouth in [place] 00 :00 the Medical morning Branch and 1 tablet in the evening. Do all this for 90 days. lisinopriL 2021-09- No [id number] 20mg Take 1 Univers 20 mg 0-15 - tablet by ity of tablet 00:00: 05:59 mouth in [place] 00 :00 the Medical morning Branch and 1 tablet in the evening. Do all this for 90 days. FLUoxetine 2021-09- No [id number] 20mg Take 1 Univers 20 mg 009-24 capsule by ity of capsule 00:00: 05:59 mouth in [place] 00 :00 the [facility] morning [place] for 90 days. memantine 2021-09- No [id number] 10mg Take 1 U nivers 10 mg 009-24 tablet by ity of tablet 00:00: 05:59 mouth in [place] 00 :00 the [facility] morning Branch and 1 tablet in the evening. Do all this for 90 days. pyridostigm 2021-09- No [id number] 60mg Take 1 Univers ine 60 mg 009-24 tablet by ity of tablet 00:00: 05:59 mouth as [place] 00 :00 needed for Medical Other Branch (HYPOTENSI ON) for up to 90 days. simvastatin 2021-09- No [id number] 20mg Take 1 Univers 20 mg 009-24 tablet by ity of tablet 00:00: 05:59 mouth at [place] 00 :00 bedtime Medical for 90 Branch days. aspirin 81 2021-09- No [id number] 81mg Take 1 Univers mg chewable 0- tablet by it y of tablet 00:00: 05:59 mouth in [place] 00 :00 the Medical morning [place] for 90 days. KCL 20 mEq 2021-09- No [id number] 40meq Take 2 Univers tablet 015 09-24 tablets by ity of 00:00: 05:59 mouth in [place] 00 :00 the Medical morning Branch for 90 days. gabapentin 2021-09- No [id number] 300mg Take 1 Univers 300 mg 0-15 12-15 capsule by ity of capsule 00:00: 05:59 mouth as [place] 00 :00 needed for Medical Pain Branch (scale 4-6) for up to 60 days. gabapentin 2021-09- No [id number] 300mg Take 1 Univers 300 mg 0-15 12-15 capsule by ity of capsule 00:00: 05:59 mouth as [place] 00 :00 needed for Medical Pain Branch (scale 4-6) for up to 60 days. gabapentin 2021-09- No [id number] 300mg Take 1 [facility] 300 mg 0-15 12-15 capsule by ity of capsule 00:00: 05:59 mouth as [place] 00 :00 needed for Medical Pain Branch (scale 4-6) for up to 60 days. gabapentin 2021-09- No [id number] 300mg Take 1 Univers 300 mg 0-15 12-15 capsule by ity of capsule 00:00: 05:59 mouth as [place] 00 :00 needed for Medical Pain Branch (scale 4-6) for up to 60 days. gabapentin 2021-09- No [id number] 300mg Take 1 [facility] 300 mg 0-15 12-15 capsule by ity of capsule 00:00: 05:59 mouth as [place] 00 :00 needed for Medical Pain Branch (scale 4-6) for up to 60 days. gabapentin 2021-09- No [id number] 300mg Take 1 [facility] 300 mg 0-15 12-15 capsule by ity of capsule 00:00: 05:59 mouth as [place] 00 :00 needed for Medical Pain Branch (scale 4-6) for up to 60 days. gabapentin 2021-09- No [id number] 300mg Take 1 [facility] 300 mg 0-15 12-15 capsule by ity of capsule 00:00: 05:59 mouth as [place] 00 :00 needed for Medical Pain Branch (scale 4-6) for up to 60 days. gabapentin 2021-09- No [id number] 300mg Take 1 [facility] 300 mg 0-15 12-15 capsule by ity of capsule 00:00: 05:59 mouth as [place] 00 :00 needed for Medical Pain Branch (scale 4-6) for up to 60 days. gabapentin 2021-09- No [id number] 300mg Take 1 [facility] 300 mg 0-15 12-15 capsule by ity of capsule 00:00: 05:59 mouth as [place] 00 :00 needed for Medical Pain Branch (scale 4-6) for up to 60 days. amitriptyli 2021-09- No [id number] 100mg Take 2 Univers ne 50 mg 0-15 10-23 tablets by ity of tablet 00:00: 04:59 mouth at [place] 00 :00 bedtime Medical for 7 Branch days. amitriptyli 2021-09- No [id number] 100mg Take 2 Univers ne 50 mg 0-15 10-23 tablets by ity of tablet 00:00: 04:59 mouth at [place] 00 :00 bedtime Medical for 7 Branch days. amitriptyli 2021-09- No [id number] 100mg Take 2 Univers ne 50 mg 0-15 10-23 tablets by ity of tablet 00:00: 04:59 mouth at [place] 00 :00 bedtime Medical for 7 Branch days. amLODIPine 2021-09 No 10mg 10 mg, Univ ers (NORVASC) 0 10-15 Oral, ity of tablet 10 14:00: [...] mg 00 :41 First dose Medical on [facility] 06/23/22 at 1700, Until Discontinu ed, Routine amLODIPine 2021-09 No 5mg 5 mg, Unive rs (NORVASC) 0- Oral, ity of tablet 5 mg 16:52: 17:31 ONCE, 1 [place] 00 :[place] dose, On Medical [facility] 06/23/22 at 1200, Routine captopriL 2021-09 No 12.5mg 12.5 mg, U nivers (CAPOTEN) 0-23 06- Oral, ity of tablet 12.5 04:45: 04:56 ONCE, 1 [place] mg 00 :00 dose, On [facility] 06/22/22 at 2345, Routine labetaloL 2021-09 No 5mg 5 mg, Slow U nivers (NORMODYNE) 006-23 IV Push, ity of injection 5 03:45: 03:12 ONCE, 1 [place] mg 00 :00 dose, On [facility] 06/22/22 at 2245, Routine vitamin 2021-09 No 1000ug 1,000 mcg, U nivers B-12 0-08 20- Oral, ity of (CYANOCOBAL 20:15: 12:15 DAILY, [place] as CODY) 00 :01 First dose Medical tablet (after Branch 1,000 mcg last modificati on) on [facility] 06/22/22 at 1515, Until Discontinu ed, Routine tamsulosin 2021-09 No .4mg 0.4 mg, Uni vers (FLOMAX) 0-12 10-15 Oral, ity of capsule 0.4 16:30: 12:15 DAILY, [place] mg 00 :01 First dose Medical on [facility] 06/22/22 at 1130, Until Discontinu ed, [...] 0.9% dose, On Branch (NS) 500 mL [facility] IV infusion 06/22/22 at 0815, Administer over 1.5 Hours, 500 mL iron 2021-09 No 25mg 25 mg, IV Univers dextran 06-22 Piggyback, ity o f (INFED) 25 13:15: 17:35 ONCE, 1 [place] mg in NaCl 00 :53 dose, On Medic al 0.9% (NS) [facility] Branch 100 mL IV 06/22/22 piggyback at 0815, Administer over 15 Minutes, 100 mL magnesium 2021-09 No 4g 4 g, IV Univ ers sulfate in 12 Piggyback, it y of water 4 12:15: [...] as 00 :37 First dose Medical on [facility] Branch 06/22/22 at 0330, Until Discontinu ed, Routine melatonin 2021-09 Yes 3mg 3 mg, Univers (MELATIN) 0-12 Oral, QHS, ity of tablet 3 mg 02:00: First dose [place] 00 on [facility] 06/21/22 Branch at 2100, Until Discontinu ed, Routine melatonin 2021-09- No 3mg 3 mg, Univer s (MELATIN) 0-12 10-15 Oral, QHS, ity of tablet 3 mg 02:00: 21:09 First dose [place] 00 :41 on [facility] 06/21/22 Branch at 2100, Until Discontinu ed, Routine hydrOXYzine 2021-09- No 10mg 10 mg, Uni vers (ATARAX) 0-12 10-12 Oral, ity of tablet 10 02:00: 01:08 ONCE, 1 [place] mg 00 :00 dose, On [facility] 06/21/22 at 2100, Routine enoxaparin 2021-09 Yes 40mg 40 mg, Unive rs (LOVENOX) 0-11 Subcutaneo ity of injection 22:00: [place], [place]ILY, [place] 40 mg 00 First dose Medical on [facility] 06/21/22 at 1700, Until Discontinu ed, Routine enoxaparin 2021-09- No 40mg 40 mg, Univ ers (LOVENOX) 0-11 10-15 Subcutaneo ity of injection 22:00: 21:09 us, DAILY, [place] 40 mg 00 :41 First dose Medical on [facility] 06/21/22 at 1700, Until Discontinu ed, Routine hydroCHLORO 2021-09- No 25mg 25 mg, Uni vers thiazide 0-11 10-11 Oral, ity of (ESIDRIX) 19:00: 20:35 DAILY, [place] tablet 25 00 :31 First dose Medi joyce mg (after Branch last modificati on) on [facility] 06/21/22 at 1400, Until Discontinu ed, Routine Sliding 2021-09 Yes Subcutaneo Univ ers Scale 0-11 us, TID ity of Insulin - 17:00: MEALS+HS, [place] Lispro 00 First dose Medical (HumaLOG) + on [facility] 06/21/22 Testing at 1200, Until Discontinu ed, Routine Sliding 2021-09 No Subcutaneo Uni vers Scale 0-11 10-15 us, TID ity of Insulin - 17:00: 21:09 MEALS+HS, [place] Lispro 00 :41 First dose Medical (HumaLOG) + on [facility] 06/21/22 Testing at 1200, Until Discontinu ed, Routine sulfur 2021-09 No [id number] 5mL 5 mL, Unive rs hexafluorid 0-11 10-11 Intravenou i ty of e microsphr 17:00: 17:00 s, ONCE, 1 [place] (LUMASON) 00 :00 dose, On Medica l injection 5 [facility] mL 06/21/22 at 1200, Routine
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 Restricted medication : WILTON NICHOLAS enalapril 2021-09 Yes 20mg 20 mg, Univer s (VASOTEC) 0-11 Oral, BID, ity of tablet 20 16:00: First dose [place] mg 00 on [facility] 06/21/22 Branch at 1100, Until Discontinu ed, Routine enalapril 2021-09 No 20mg 20 mg, Unive rs (VASOTEC) 0-11 10-15 Oral, BID, ity of tablet 20 16:00: 21:09 First dose [place] mg 00 :41 on [facility] 06/21/22 Branch at 1100, Until Discontinu ed, Routine dextrose 2021-09 Yes 250mL 250 mL, IV Un teo 10% (D10W) 0-11 Infusion, ity of bolus 15:42: PRN - SEE [place] infusion 37 INSTRUCTIO Medic al 250 mL NS, Branch Administer over 60 Minutes, Other, If blood glucose is < or = 70 mg/dL and patient is unable to swallow or has mental status changes, Starting on [facility] 06/21/22 at 1042
If blood [...] KIT) 34 Starting Medical injection 1 on [facility] 06/21/22 at 1042, Until Discontinu ed, YOKO, Blood Glucose < or = 70 mg/dL and patient is unable to swallow or has mental changes. glucagon 2021-09- No 1mg 1 mg, Univers (GLUCAGEN 0-11 10-15 Intramuscu ity of DIAGNOSTIC 15:42: 21:09 lar, PRN, [place] KIT) 34 :41 Starting Medical injection 1 on [facility] Branch mg 06/21/22 at 1042, Until 06/25/22 at 1609, YOKO, Blood Glucose < or = 70 mg/dL and patient is unable to swallow or has mental changes. acetaminoph 2021-09 Yes 650mg 650 mg, Un teo en 0-11 Oral, ity of (TYLENOL) 15:21: Q6HPRN, [place] tablet 650 10 Starting Medic al mg on [facility] Branch 06/21/22 at 1021, Until Discontinu ed, Routine, Pain (scale 1-3) acetaminoph 2021-09- No 650mg 650 mg, U nivers en 0-11 10-15 Oral, ity of (TYLENOL) 15:21: 21:09 Q6HPRN, [place] tablet 650 10 :41 Starting Medic al mg on [facility] 06/21/22 at 1021, Until 06/25/22 at 1609, Routine, Pain (scale 1-3) melatonin 2021-09- No 3mg 3 mg, Univer s (MELATIN) 006-21 Oral, ity of tablet 3 mg 09:15: 08:30 ONCE, 1 [place] 00 :[place] dose, On Medical [facility] 06/21/22 at 0415, Routine aspirin 2021-09- No 325mg 325 mg, Unive rs E.C. 006-21 Oral, ity of (ECOTRIN) 08:30: 08:30 ONCE, 1 [place] tablet 325 00 :00 dose, On Medic al mg [facility] 06/21/22 at 0330, STAT atenoloL 2021-09- No 100mg 100 mg, Univ ers (TENORMIN) 006-21 Oral, ity of tablet 100 03:00: 02:13 ONCE, 1 Shawn as mg 00 :00 dose, On [facility] 06/20/22 at 2200, Routine cloNIDine 2021-09- No .2mg 0.2 mg, Univ ers (CATAPRES) 006-21 Oral, ity of tablet 0.2 02:15: 02:14 ONCE, 1 Shawn as mg 00 :00 dose, On [facility] 06/20/22 at 2115, STAT iopamidol 2021-09- No [id number] 150mL 150 mL, Univers (ISOVUE 0-10 10-10 [...] Medical Emil Sanchez ONCE, 1 dose, On 06/20/22 at 1430, [...] glargine 7-19 [facility] ([facility] 00:00: subcutaneo [facility] SOLOSTAR 00 usly Center U-100 nightly. INSULIN) 100 unit/mL (3 mL) InPn insulin 2020-0 Yes 15U QD [facility]ject [facility] ([facility] 00:00: subcutaneo [facility] SOLOSTAR 00 usly Center U-100 nightly. INSULIN) 100 unit/mL (3 mL) InPn insulin 2019-0 Yes 15U QD Inject 15 [facility] ([facility] 00:00: subcutaneo [facility] SOLOSTAR 00 usly Center U-100 nightly. INSULIN) 100 unit/mL (3 mL) InPn insulin 2019-0 Yes 15U QD Inject 15 [facility] gl[facility]ine [facility] ([facility]ANT[facility] 00:00: subcutaneo [facility] SOLOSTAR 00 usly Center U-100 nightly. INSULIN) 100 unit/mL (3 mL) InPn insulin 2019-0 Yes 15U QD Inject 15 [facility] 00 usly Center U-100 nightly. INSULIN) 100 unit/mL (3 mL) InPn insulin 2019-0 Yes 15U QD Inject 15 [facility]ine [facility] SOL[facility]AR 00 usly Center U-100 nightly. INSULIN) 100 unit/mL (3 mL) InPn Insulin 2020-0 Yes 15U inject 15 Unive [...] INSULIN) 100 unit/mL (3 mL) InPn Insulin 2020-0 2022- No 15U inject 15 [facility] ers Glargine 7-19 01-26 Units ity of 100 unit/mL 00:00: 00:00 under the [place] (3 mL) 00 :00 skin. Medical injection Branch Insulin 2022- No 15U inject 15 [facility] ers Glargine 03-29 01-26 Units ity of 100 unit/mL 00:00: 00:00 under the [place] (3 mL) 00 :00 skin. Medical injection [...] times daily. [facility] 10 Yes 10mg QD Take [address] [facility] mg tablet 7-09 by mouth [facility] 00:[facility]: daily. [address] 10 2019-0 Yes 10mg QD Take [address] [facility] mg tablet 7-09 by mouth [facility] 00:00: daily. [address] 10 Yes 10mg QD Take [address] [facility] [address] mg tablet 7-09 by mouth [facility] 00:00: daily. [address] 10 0 Yes 10mg QD Take [address] [facility] [address] mg tablet 7-09 by mouth [facility] 00:00: daily. [address] 10 Yes 10mg QD Take [address] [facility] mg tablet 7-09 by mouth [facility] 00:00: daily. [address] 10 2019-0 Yes 10mg QD Take [address] [facility] [address] mg tablet 7-09 by mouth [facility] 00:00: daily. [address] 10 0 Yes 10mg QD Take [address] [facility] mg tablet 7-09 by mouth [facility] 00:00: daily. [address] 10 2019-0 Yes 10mg QD Take [address] [facility] mg tablet 7-09 by mouth [facility] 00:00: daily. [address] simvastatin 2019-0 Yes 20mg QD Take [address] [facility] (ZOCOR) 20 5-13 by mouth [facility] MG tablet 00:00: nightly. Medi joyce 00 Center tamsulosin 2020-0 Yes .4mg Take 0.[address] [facility] (FLOMAX) 5-13 mg by [facility] 0.4 mg Cap 00:00: mouth Medica l 24 hr 00 Daily Center capsule (1800). simvastatin 2020-0 Yes 20mg QD Take [address] [facility] (ZOCOR) 20 5-13 by mouth [facility] tablet 00:00: nightly. [address] tamsulosin 2020-0 Yes .4mg Take 0.[address] [facility] (FLOMAX) 5-13 mg by [facility] 0.4 mg Cap 00:00: mouth Medica l 24 hr 00 Daily Center capsule (1800). simvastatin 2020-0 Yes 20mg QD Take [address] [facility] (ZOCOR) 20 5-13 by mouth [facility] tablet 00:00: nightly. [address] tamsulosin 2020-0 Yes .4mg Take 0.[address] [facility] (FLOMAX) 5-13 mg by [facility] 0.4 mg Cap 00:00: mouth Medica l 24 hr 00 Daily Center capsule (1800). simvastatin 2020-0 Yes 20mg QD Take [address] [facility] (ZOCOR) 20 5-13 by mouth [facility] MG tablet 00:00: nightly. [address] tamsulosin 2020-0 Yes .4mg Take 0.[address] [facility] (FLOMAX) 5-13 mg by [facility] 0.4 mg Cap 00:00: mouth Medica l 24 hr 00 Daily Center capsule (1800). simvastatin 2020-0 Yes 20mg QD Take [address] [facility] (ZOCOR) 20 5-13 by mouth [facility] tablet 00:00: nightly. [address] tamsulosin 2020-0 Yes .4mg Take 0.[address] [facility] (FLOMAX) 5-13 mg by [facility] 0.4 mg Cap 00:00: mouth Medica l 24 hr 00 Daily Center capsule (1800). simvastatin 2020-0 Yes 20mg QD Take [address] [facility] (ZOCOR) 20 5-13 by mouth [facility] MG tablet 00:00: nightly. [address] tamsulosin 2020-0 Yes .4mg Take 0.[address] [facility] (FLOMAX) 5-13 mg by [facility] 0.4 mg Cap 00:00: mouth Medica l 24 hr 00 Daily Center capsule (1800). simvastatin 2020-0 Yes 20mg QD Take [address] [facility] (ZOCOR) 20 5-13 by mouth [facility] MG tablet 00:00: nightly. [address] tamsulosin 2020-0 Yes .4mg Take 0.[address] [facility] (FLOMAX) 5-13 mg by [facility] 0.4 mg Cap 00:00: mouth Medica l 24 hr 00 Daily Center capsule (1800). simvastatin 2020-0 Yes 20mg QD Take [address] [facility] (ZOCOR) 20 5-13 by mouth [facility] MG tablet 00:00: nightly. [address] tamsulosin 2020-0 Yes .4mg Take 0.[address] [facility] (FLOMAX) 5-13 mg by [facility] 0.4 mg Cap 00:00: mouth Medica l 24 hr 00 Daily Center capsule (1800). omeprazole 2020-0 Yes 20mg QD Take [address] [facility] (PRILOSEC) 5-04 by mouth [facility] 20 MG 00:00: daily. Medical capsule 00 [place] omeprazole 2020-0 Yes 20mg QD Take [address] (PRILOSEC) 5-04 by mouth [facility] 20 MG 00:00: daily. Medical capsule 00 [place] omeprazole 2020-0 Yes 20mg QD Take [address] (PRILOSEC) 5-04 by mouth [facility] 20 MG 00:00: daily. Medical capsule 00 [place] omeprazole 2020-0 Yes 20mg QD Take [address] (PRILOSEC) 5-04 by mouth [facility] 20 MG 00:00: daily. Medical capsule 00 [place] omeprazole 2020-0 Yes 20mg QD Take [address] (PRILOSEC) 5-04 by mouth [facility] 20 MG 00:00: daily. Medical capsule 00 [place] omeprazole 2020-0 Yes 20mg QD Take [address] (PRILOSEC) 5-04 by mouth [facility] 20 MG 00:00: daily. Medical capsule 00 [place] omeprazole 2020-0 Yes 20mg QD Take [address] (PRILOSEC) 5-04 by mouth [facility] 20 MG 00:00: daily. Medical capsule 00 [place] omeprazole 2020-0 Yes 20mg QD Take [address] (PRILOSEC) 5-04 by mouth [facility] 20 MG 00:00: daily. Medical capsule 00 [place] melatonin 3 2019-0 Yes 3mg QD Take [address] mg Tab 8-23 by mouth [facility] tablet 00:00: nightly. [address] fLUoxetine Yes 20mg QD Take [address] (PROZAC) 20 8-23 by mouth [facility] MG capsule 00:00: daily. [address] 3 Yes 3mg QD Take [address] mg Tab 8-23 by mouth [facility] tablet 00:00: nightly. [address] fLUoxetine Yes 20mg QD Take [address] (PROZAC) 20 8-23 by mouth [facility] MG capsule 00:00: daily. [address] 3 Yes 3mg QD Take [address] mg Tab 8-23 by mouth [facility] tablet 00:00: nightly. [address] Yes 20mg QD Take [address] (PROZAC) 20 8-23 by mouth [facility] MG capsule 00:00: daily. [address] 3 Yes 3mg QD Take [address] mg Tab 8-23 by mouth [facility] tablet 00:00: nightly. [address] Yes 20mg QD Take [address] (PROZAC) 20 8-23 by mouth [facility] MG capsule 00:00: daily. [address] 3 Yes 3mg QD Take [address] mg Tab 8-23 by mouth [facility] tablet 00:00: nightly. [address] fLUoxetine Yes 20mg QD Take [address] (PROZAC) 20 8-23 by mouth [facility] MG capsule 00:00: daily. [address] 3 Yes 3mg QD Take [address] mg Tab 8-23 by mouth [facility] tablet 00:00: nightly. [address] fLUoxetine Yes 20mg QD Take [address] (PROZAC) 20 8-23 by mouth [facility] MG capsule 00:00: daily. [address] 3 Yes 3mg QD Take [address] mg Tab 8-23 by mouth [facility] tablet 00:00: nightly. [address] fLUoxetine Yes 20mg QD Take [address] (PROZAC) 20 8-23 by mouth [facility] MG capsule 00:00: daily. Medic al 00 Center melatonin 3 Yes 3mg QD Take [address] mg Tab 8-23 by mouth [facility] tablet 00:00: nightly. Medical 00 Center fLUoxetine Yes 20mg QD Take [address] (PROZAC) 20 8-23 by mouth [facility] MG capsule 00:00: daily. Medic al 00 Center bisacodyl Yes 10 mg = 1 Mem oria 10 mg 6-19 supp, IA, l rectal 21:04: Daily, PRN Elyse nn suppository 00 Constipati on, 0 Refill(s) Docusate Yes 100 mg = 1 Mem oria Sodium 100 6-19 cap, PO, l MG Oral 21:04: Q12H, 0 [place] Capsule 00 Refill(s) atorvastati Yes 10 mg = 1 M emoria n 10 mg 6-19 tab, PO, l oral tablet 21:04: Bedtime, 0 [place] 00 Refill(s) sennosides, Yes 8.6 mg = 1 Memoria FPC 8.6 MG 6-19 tab, PO, l Oral Tablet 21:04: Q12H, 0 Her antonio 00 Refill(s) levofloxaci Yes 500 mg = 1 Memoria n 500 mg 6-19 tab, PO, l oral tablet 21:04: [id number], 0 [place] 00 Refill(s) Humalog No Notes: Memoria 6-18 (Same as: l 16:30: Humalog ) [place] 00 Roll in palms of hands gently; [...] potassium No Notes: Memori a chloride 20 17 (Same as: l mEq oral 14:35: K-Dur 20) Herm roxanne tablet, 00 "Do Not extended Crush" For release patients unable to swallow tablet, dissolve in one half glass of water. Allow about 2 minutes for the tablets to disintegra te. Stir before giving to prepare slurry and administer . Please exclude Patient s with feeding tube less than 14 [place] (Dobhoff, J-tube etc) and pediatric and patients. With food and full glass of water insulin, No Notes: Memoria isophane -16 Roll in l 23:02: palms of [place] 00 hands gently; Do not shake vigorously . (Same as: Humulin N) Do not hold insulin without contacting prescriber WASTE: F/P - Black; E - Municipal Trash Bin Stable for 28 days at room temperatur e Expires in days from ____Date Humalog No Notes: Memoria 6-16 (Same as: l 21:30: Humalog ) [place] 00 Roll in palms of hands gently; Do not shake `vigorousl y. "Single Patient Use Only " WASTE: F/P - Black; E - Municipal Trash Bin Stable for 28 days at room temperatur e. Expires in days from ____Date Insulin, 0 No 4 unit, Memori a Aspart, 02-24 Route: l Human 21:30: SUB-Q, [place] 00 TID-Before Meals, Dosing Weight 81.9, kg, Start date: 02/24/18 16:30:00 CDT, Duration: 30 day, Stop date: 03/26/18 11:30:00 CDT Lasix No Notes: Memoria 6-16 (Same as: l 20:54: Lasix) [place] MEDICATION WASTE Product Size: 40 mg Product Wasted: ___ mg Potassium No Notes: Memori a Chloride 16 (Same as: l 12:00: KCL) [place] 00 Infuse over 2 hours. Levofloxaci No 500 mg, 1 M emoria n 6-16 tab, l 11:49: Route: PO, [place] 00 Drug form: TAB, [id number], Dosing Weight 81.9, kg, Priority: NOW, Start date: 02/24/18 6:49:00 CDT, Duration: 5 day, Stop date: 02/28/18 6:49:00 CDT, ABX Indication : Urinary Tract Infection potassium No 40 mEq, 2 Mem oria chloride 20 6-16 tab, l mEq oral 11:47: Route: PO, Her antonio tablet, 00 Drug form: extended ERTAB, release Q4H, Dosing Weight 81.9, kg, Priority: NOW, Start date: 02/24/18 6:47:00 CDT, Duration: 30 day, Stop date: 03/26/18 4:00:00 CDT Magnesium No Notes: Memori a Sulfate 40 -16 WASTE: F/P l MG/ML 11:47: - Sink; E [place] Injection - Municipal Trash Bin Potassium No Notes: Memori a Chloride 6-16 (Same as: l 07:49: KCL) [place] 00 Infuse over 2 hours. Potassium No Notes: Memori a Chloride 6-16 (Same as: l 07:47: K-Dur 20) [place] 00 "Do Not Crush" For patients unable to swallow tablet, dissolve in one half glass of water. Allow about 2 minutes for the tablets to disintegra te. Stir before giving to prepare slurry and administer . Please exclude Patient s with feeding tube less than 14 [place] (Dobhoff, J-tube etc) and pediatric and patients. With food and full glass of water potassium No Notes: Memori a phosphate-s -16 (Same as: l odium 07:28: Phos-NaK) [place] phosphate 00 Each 1.5 250 mg-280 gm pkt has mg-160 mg 250mg oral powder phosphorou for s. Mix reconstitut w/2.5oz ion water and stir. Potassium No Notes: Memori a Chloride 6-16 (Same as: l 07:28: KCL) [place] 00 Infuse over 2 hours. Magnesium No Notes: Memori a Sulfate 6-16 WASTE: F/P l 07:28: - Sink; E [place] 00 - Municipal Trash Bin sodium No 15 mmol, 5 Memor ia phosphate 6-16 mL, Route: l 07:28: IVPB, PRN, Dosing Weight 81.9, kg, PRN Abnormal Lab Result, For NON-ICU Patients Only., Start date: 02/24/18 2:28:00 CDT, Duration: 30 day, Stop date: 03/26/18 2:27:00 CDT potassium No Notes: Memori a phosphate 6-16 (Same as: l 07:28: K Phosphate. ) 1 mMol phoshate has 1.47 mEq potassium Infuse over 4 hours Calcium No Notes: Memoria Gluconate -16 WASTE: F/P l 07:28: - Sink; E - Municipal Trash Bin Magnesium No Notes: Memori a Oxide 6-16 (Same as: l 07:28: Mag-Ox 400) Magnesium oxide [id number] g elemental magnesium Dose=____m g magnesium oxide (___mg elemental magnesium) Bisacodyl No Notes: Memori a 6-15 (Same As: l 14:04: Dulcolax, Bisco-Lax) Levofloxaci No Notes: Do M emoria n 6-15 not give l 14:00: w/antacids , dairy pdt & minerals Take 1 hr before or 2 hr after dairy products torsemide No Notes: Memori a 6-15 (Same As: l 14:00: Demadex) POLYETHYLEN No Notes: Dirk reji E GLYCOL 6-15 Dissolve l 3350 13:13: in 8 oz of water or juice. (Same as: Miralax) niCARdipine No Notes: Dirk reji 40 mg in NS 6-15 Same as: l 200 mL 08:49: Cardene [place] (Titrate.) 00 Concentrat IV 40 mg ion: (0.2 mg /1 ml ) Lasix No Notes: Memoria 6-15 (Same as: l 03:30: Lasix) Levofloxaci No Notes: Dirk reji n 6-13 (Same l 22:09: as:Levaqui n) Ibuprofen No Notes: Memori a 400 MG Oral 6-13 (Same as: l Tablet 21:30: Motrin) "Do Not Crush" Give with food. Bisacodyl No 10 mg, Memori a 6-13 Route: IA, l 14:02: Drug form: SUPP, ONCE, Dosing Weight 81.9, kg, Start date: 02/21/18 9:02:00 CDT, Stop date: 02/21/18 9:02:00 CDT nebivolol No Notes: Memori a 6-13 (same as: l 14:00: Bystolic) Miralax No Notes: Memoria 6-13 Dissolve l 14:00: in 8 oz of water or juice. (Same as: Miralax) piperacilli No Notes: Dirk reji n-tazobacta -13 (Same as: l m 13:32: Zosyn) Dosing [...] l 100 UNT/ML 11:42: Lantus) Do H erm not hold Solution insulin [Lantus] without contacting prescriber WASTE: F/P - Black; E - Municipal Trash Bin Tylenol No 1,000 mg, Memor ia 6-13 Route: PO, l 11:00: Q6H, Dosing Weight 81.9, kg, Start date: 02/21/18 6:00:00 CDT, Duration: 30 day, Stop date: 03/23/18 0:00:00 CDT Lasix No Notes: Memoria 6-13 (Same as: l 10:02: Lasix) [place] 00 Water 1000 No 457.25 mL, M emoria MG/ML 6-13 Rate: 500 l Injectable 09:07: ml/hr, Elyse nn Solution 00 Infuse over: 1 hr, Route: IV, Dosing Weight 81.9 kg, Total Volume: 500, Start date: 02/21/18 4:07:00 CDT, Duration: 30 day, Stop date: 03/23/18 4:06:00 CDT, For IMU and ICU use only. See Order Comments!! , 1.95, m2 sodium No 30 mmol, Memoria phosphate 6-13 10 mL, l 05:41: Route: [place] 00 IVPB, PRN, Dosing Weight 81.9, kg, PRN Abnormal Lab Result, Start date: 02/21/18 0:41:00 CDT, Duration: 30 day, Stop date: 03/23/18 0:40:00 CDT, FOR ICU USE ONLY potassium No Notes: Memori a phosphate 6-13 (Same as: l 05:41: K [place] Phosphate. ) 1 mMol phoshate has 1.47 mEq potassium Infuse over 4 hours Potassium No Notes: Memori a Chloride 6-13 (Same as: l 05:41: Potassium [place] Chloride) Calcium No Notes: Memoria Carbonate 6-13 (Same As: l 500 MG 05:41: Tums) [place] Chewable 00 Calcium Tablet Carbonate 500 mg = 200 mg elemental calcium Dose = mg calcium carbonate ( mg elemental calcium) Magnesium No Notes: Memori a Sulfate 6-13 WASTE: F/P l 05:41: - Sink; E [place] 00 - Municipal Trash Bin potassium No Notes: Memori a phosphate-s 6-13 (Same as: l odium 05:41: Phos-NaK) [place] phosphate 00 Each 1.5 250 mg-280 gm pkt has mg-160 mg 250mg oral powder phosphorou for s. Mix reconstitut w/2.5oz ion water and stir. Calcium No Notes: Memoria Gluconate 02-21 WASTE: F/P l 05:41: - Sink; E [place] 00 - Municipal Trash Bin Magnesium No Notes: Memori a Oxide 02-21 (Same as: l 05:41: Mag-Ox [place] 00 400) Magnesium oxide 112ns=274r g elemental magnesium Dose=____m g magnesium oxide (___mg elemental magnesium) Nicardipine No Notes: Dirk reji 02-21 Same as: l 05:40: Cardene [place] 00 Concentrat ion: (0.1 mg/ 1 ml) Sodium No 1,000 mL, Memori a Chloride 02-21 Rate: 75 l 0.9% IV 05:40: ml/hr, [place] 1,000 mL 00 Infuse over: 13.3 hr, Route: IV, Dosing Weight 81.9 kg, Total Volume: 1,000, Start date: 02/21/18 0:40:00 CDT, Duration: 30 day, Stop date: 03/23/18 0:39:00 CDT, 1.95, m2 Vancomycin No 2000 mg: Me moria 02-21 infuse l 05:00: over 2.5 [place] 00 hours For adult patients only: Round to nearest 250 mg per Medical Staff approval MEDICATION WASTE Product Size: 1000 mg Product Wasted: ___ mg cefepime No Notes: Memoria 02-21 (Same As: l 05:00: Maxipime) [place] 00 MEDICATION WASTE Product Size: 1000 mg Product Wasted: ___ mg Lisinopril No Notes: Memor ia 02-21 (Same as: l 02:00: Prinivil, [place] Zestril) atorvastati No Notes: Dirk reji n 02-21 (Same As: l 02:00: Lipitor) [place] 00 heparin No Notes: Memoria sodium, 6-12 porcine l porcine 21:00: heparin [place] 2500 UNT/ML 00 Injectable Solution Tramadol No 50 mg, 1 Memor ia tab, l 19:45: Route: PO, Drug form: TAB, Q6H, Dosing Weight 81.9, kg, PRN Pain Score 4-6, Start date: 02/20/18 14:45:00 CDT, Duration: 30 day, Stop date: 03/22/18 14:44:00 CDT Acetaminoph No Notes: Do M emoria en 02-20 not exceed l 19:42: 4 gm/day. (Same as: Tylenol) Insulin No Notes: Memoria Lispro 12 (Same as: l 14:44: Humalog ) Roll in palms of hands gently; Do not shake `vigorousl y. "Single Patient Use Only " WASTE: F/P - Black; E - Municipal Trash Bin Stable for 28 days at room temperatur e. Expires in days from ____Date Glucagon No 1 mg, Memoria 02-20 Route: IM, l 14:44: Drug form: PDR/INJ, PRN, Dosing Weight 81.9, kg, PRN [...] 9:43:00 CDT Fluoxetine No Notes: Memor ia -12 (Same as: l 14:00: Prozac, [place] 00 Sarafem) Zocor No Notes: Memoria 6-12 (Same [...] sugammadex No Route: IV, M emoria (ANES) 02-19 Drug form: l 14:34: SOLN, ONCE, Stop date: 02/19/18 9:34:00 CDT sugammadex No Notes: Memor ia 6-11 (Same as: l 14:23: Bridion) sugammadex No Notes: Memor ia 6-11 (Same as: l 14:01: [place]) nebivolol No Notes: Memori a 6-11 (same as: l 14:00: Bystolic) Amlodipine No Notes: Memor ia 6-11 (Same as: l 14:00: Norvasc) Saline No Notes: Memoria Flush 0.9% - (Same as: l 14:00: BD Posiflush) Docusate No Notes: Memoria 6-11 (Same as: l 14:00: Colace) (Do Not Crush) sennosides, No Notes: Dirk reji FPC 6-11 (Same as: l 14:00: Senokot) Levetiracet No Notes: Dirk reji am 6-11 Same as l 14:00: Keppra Mix with 100 mL NS, LR or D5W MEDICATION WASTE Product Size: 500 mg Product Wasted: ___ mg Flomax No Notes: Memoria 6-11 (Same As: l 14:00: Flomax) "Do Not Crush" Protonix 2018-0 No Notes: Memoria 6-11 Tablet l 14:00: should not [place] 00 be chewed or crushed. (Same as: Protonix) ceFAZolin No Route: IV, Me moria (ANES) 6- Drug form: l 13:40: INJ, ONCE, Stop date: 02/19/18 8:40:00 CDT fentaNYL No Route: IV, Mem oria (ANES) 6- Drug form: l 13:40: INJ, ONCE, Stop [...] lidocaine No Route: IV, Me moria (ANES) - Drug form: l 13:40: INJ, ONCE, Stop date: 02/19/18 8:40:00 CDT Sodium No Route: IV, Memor ia Chloride 02-19 Total l 0.9% IV 13:32: Volume: [place] (ANES) 1000 00 1,000, mL Start date: 02/19/18 8:32:00 CDT, Stop date: 02/19/18 9:32:00 CDT Hydralazine 0 No 10 mg, Dirk reji 02-19 Route: l 13:29: IVP, [place] 00 Q20Min, Dosing Weight 81.9, kg, PRN Elevated BP, Start date: 02/19/18 8:29:00 CDT, Duration: 2 doses or times, Stop date: Limited # of times Labetalol 0 No 10 mg, Memori a 6-11 Route: l 13:29: IVP, [place] 00 Q5Min, Dosing Weight 81.9, kg, PRN Elevated BP, Start date: 02/19/18 8:29:00 CDT, Duration: 5 doses or times, Stop date: Limited # of times Oxycodone 2018-0 No 5 mg, Memoria 6-11 Route: PO, l 13:29: Drug form: [place] 00 TAB, Q4H, Dosing Weight 81.9, kg, PRN Pain Score 4-6, Start date: 02/19/18 8:29:00 CDT, Duration: 30 day, Stop date: 03/21/18 8:28:00 CDT Metoprolol 2018-0 No 1 mg, Memori a 611 Route: l 13:29: IVP, [place] 00 Q5Min, Dosing Weight 81.9, kg, PRN Other -See Comment, Start date: 02/19/18 8:29:00 CDT, Duration: 5 doses or times, Stop date: Limited # of times Acetaminoph 2018-0 No 1,000 mg, M emoria en 6-11 Route: PO, l 13:29: Drug form: [place] 00 TAB, ONCE, Dosing Weight 81.9, kg, PRN Pain Score 1-3, Start date: 02/19/18 8:29:00 CDT Fentanyl 2018-0 No 50 Memoria 6-11 microgram, l 13:29: Route: [place] 00 IVP, Q5Min, Dosing Weight 81.9, kg, PRN Pain Score 7-10, Priority: Routine, Start date: 02/19/18 8:29:00 CDT, Duration: 2 doses or times, Stop date: Limited # of times Hydromorpho 2018-0 No 0.5 mg, Mem oria ne 6-11 Route: l 13:29: IVP, [place] 00 Q5Min, Dosing Weight 81.9, kg, PRN Pain Score 7-10, Start date: 02/19/18 8:29:00 CDT, Duration: 4 doses or times, Stop date: Limited # of times Ondansetron 2018-0 No 4 mg, Memor ia 6-11 Route: l 13:29: IVP, ONCE, [place] 00 Dosing Weight 81.9, kg, PRN Nausea & Vomiting, Start date: 02/19/18 8:29:00 CDT Naloxone 2017-0 No 0.4 mg, Memori a 02-19 Route: l 13:29: IVP, [place] 00 Q2MIN, Dosing Weight 81.9, kg, PRN Narcotic Reversal, Start date: 02/19/18 8:29:00 CDT, Duration: 8 doses or times, Stop date: Limited # of times Flumazenil 0 No 0.2 mg, Dirk reji 02-19 Route: l 13:29: IVP, PRN, [place] Dosing Weight 81.9, kg, PRN Benzodiaze pine Reversal, Initial dose, Start date: 02/19/18 8:29:00 CDT, Duration: 30 day, Stop date: 03/21/18 8:28:00 CDT Sodium 2017-0 No Route: IV, Memor ia Chloride 11 Total l 0.9% IV 13:06: Volume: [place] (ANES) 500 00 500, Start mL date: 02/19/18 8:06:00 CDT, Stop date: 02/19/18 9:06:00 CDT propofol 0 No Route: IV, Mem oria (ANES) 10 02-19 Drug form: l mg 12:55: INJ, Start date: 02/19/18 7:55:00 CDT, Stop date: 02/19/18 8:55:00 CDT remifentani 0 No Route: IV, Memoria l (ANES) 1 02-19 Drug form: l mg 12:55: INJ, Start date: 02/19/18 7:55:00 CDT, Stop date: 02/19/18 8:55:00 CDT Lactated 0 No Route: IV, Mem oria Ringers 6-11 Total l Injection 12:36: Volume: Elyse nn IV (ANES) 00 1,000, 1000 mL Start date: 02/19/18 7:36:00 CDT, Stop date: 02/19/18 8:36:00 CDT Sodium 2018-0 No 3 gm, 3 Memoria Chloride 6-11 tab, l 1000 MG 12:30: Route: Fina SANCHES roxanne Oral Tablet 00 Drug form: TAB, TID-Before Meals, Dosing Weight 82.8, kg, Start date: 02/19/18 7:30:00 CDT, Duration: 30 day, Stop date: 03/20/18 16:30:00 CDT Hydralazine 2017-0 No Notes: Dirk reji Hydrochlori 6-11 (Same as: l de 100 MG 11:00: Apresoline He rmann Oral Tablet 00 ) May interfere w/enteral feedings Take With Food Potassium 0 No Notes: Memori a Chloride 6-11 (Same as: l 11:00: KCL) [place] 00 Infuse over 2 hours. Nicardipine No Notes: Dirk reji 6-11 Same as: l 10:56: Cardene Concentrat ion: (0.1 mg/ 1 ml) Labetalol 0 No 10 mg, 2 Dirk reji 6-11 mL, Route: l 10:44: IVP, Drug form: INJ, Q1H, Dosing Weight 82.8, kg, PRN Hypertensi on, Start date: 02/19/18 5:44:00 CDT, Duration: 30 day, Stop date: 03/21/18 5:43:00 CDT Hydralazine 2017-0 No Notes: Dirk reji 6-11 (Same as: l 10:44: Apresoline [place] 00 ) Push over 5 minutes potassium 2017-0 No 15 mmol, Dirk reji phosphate 6-11 Route: l 10:44: IVPB, PRN, Dosing Weight 82.8, kg, PRN Abnormal Lab Result, Start date: 02/19/18 5:44:00 CDT, Duration: 30 day, Stop date: 03/21/18 5:43:00 CDT, FOR ICU USE ONLY sodium 2017-0 No 15 mmol, Memoria phosphate 6-11 Route: l 10:44: IVPB, PRN, Dosing Weight 82.8, kg, PRN Abnormal Lab Result, Start date: 02/19/18 5:44:00 CDT, Duration: 30 day, Stop date: 03/21/18 5:43:00 CDT, FOR ICU USE ONLY Potassium 0 No 20 mEq, Memor ia Chloride 6-11 Route: PO, l 10:44: Drug form: [place] 00 ERTAB, PRN, Dosing Weight 82.8, kg, [...] Calcium 2018-0 No 1 gm, Memoria Gluconate 6- Route: l 10:44: IVPB, PRN, [place] 00 Dosing Weight 82.8, kg, PRN Abnormal Lab Result, Start date: 02/19/18 5:44:00 CDT, Duration: 30 day, Stop date: 03/21/18 5:43:00 CDT, FOR ICU USE ONLY Magnesium 2018-0 No 2 gm, [facility]oria Sulfate 02-19 Route: l 10:44: IVPB, PRN, [place] 00 Dosing Weight 82.8, kg, PRN Abnormal Lab Result, Start date: 02/19/18 5:44:00 CDT, Duration: 30 day, Stop date: 03/21/18 5:43:00 CDT, FOR ICU USE ONLY Magnesium 2018-0 No 800 mg, Memor ia Oxide 02-19 Route: PO, l 10:44: PRN, [place] 00 Dosing Weight 82.8, kg, PRN Abnormal Lab Result, FOR ICU USE ONLY, Start date: 02/19/18 5:44:00 CDT, Duration: 30 day, Stop date: 03/21/18 5:43:00 CDT potassium 2018-0 No 2 pkt, Memori a phosphate-s 6-11 Route: PO, l odium 10:44: Dosing [place] phosphate 00 Weight 250 mg-280 82.8, kg, mg-160 mg PRN, PRN oral powder Abnormal for Lab reconstitut Result, ion FOR ICU USE ONLY, Start date: 02/19/18 5:44:00 CDT, Duration: 30 day, Stop date: 03/21/18 5:43:00 CDT Calcium No Notes: [facility] Gluconate 6-11 WASTE: F/P l 09:36: - Sink; E [place] - Municipal Trash Bin Calcium No Notes: [facility] Carbonate 6-11 (Same As: l 500 MG 09:36: Tums) [place] Chewable 00 Calcium Tablet Carbonate 500 mg = 200 mg elemental calcium Dose = mg calcium carbonate ( mg elemental calcium) sodium No 15 mmol, 5 Memor ia phosphate 6-11 mL, Route: l 09:36: IVPB, PRN, [place] 00 Dosing Weight 82.8, [...] Chloride 6-11 (Same as: l 09:36: Potassium [place] 00 Chloride) potassium No Notes: Memori a phosphate-s 6-11 (Same as: l odium 09:36: Phos-NaK) [place] phosphate 00 Each 1.5 250 mg-280 gm pkt has mg-160 mg 250mg oral powder phosphorou for s. Mix reconstitut w/2.5oz ion water and stir. Magnesium No Notes: [facility] a Sulfate 6-11 WASTE: F/P l 09:36: - Sink; E [place] 00 - Municipal Trash Bin Magnesium No Notes: [facility] a Oxide 6-11 (Same as: l 09:36: Mag-Ox [place] 00 400) Magnesium oxide 992px=274n g elemental magnesium Dose=____m g magnesium oxide (___mg elemental magnesium) Sodium No 1,000 mL, [facility] a Chloride 6-11 1,000 l 0.9% 09:34: ml/hr, [place] (Bolus) IV 00 Infuse Over: 1 hr, Route: IV, 1,000, Drug form: INJ, ONCE, Priority: STAT, Dosing Weight 82.8 kg, Start date: 02/19/18 4:34:00 CDT, Stop date: 02/19/18 4:34:00 CDT Saline No Notes: [facility] Flush 0.9% -11 (Same as: l 09:: BD [place] 00 Posiflush) Ondansetron No Notes: Dirk reji 6-11 (Same as: l : Zofran) [place] 00 MEDICATION WASTE Product Size: 4 mg Product Wasted: ___ mg Bisacodyl No Notes: [facility]ori a 6-11 (Same As: l : Dulcolax, [place] Bisco-Lax) Acetaminoph No 1 tab, Dirk reji en 325 MG / 6-11 Route: PO, l Hydrocodone 09:27: Drug Form: [place] Bitartrate 00 TAB, 5 MG Oral Dosing Tablet Weight 82.8, kg, Q4H, PRN Pain Score 1-3, Start date: 02/19/18 4:27:00 CDT, Duration: 30 day, Stop date: 03/21/18 4:26:00 CDT Acetaminoph No Notes: Do M emoria en 6-11 not exceed l 09:27: 4 gm/day. [place] 00 (Same as: Tylenol) Acetaminoph No 1 tab, Dirk reji en 325 MG / 611 Route: PO, l Hydrocodone 09:27: Drug Form: [place] Bitartrate 00 TAB, 10 MG Oral Dosing Tablet Weight 82.8, kg, Q4H, PRN Pain Score 4-6, Start date: 02/19/18 4:27:00 CDT, Duration: 30 day, Stop date: 03/21/18 4:26:00 CDT Sodium No 1,000 mL, [facility] a Chloride - Rate: 50 l 0.9% IV 09:27: ml/hr, [...] CDT, Stop date: 02/19/18 4:17:00 CDT Potassium No Notes: [facility] a Chloride 6-11 (Same as: l 1.33 MEQ/ML 09:17: Potassium H [place] Oral 00 Chloride) Solution Saline No Notes: [facility] Flush 0.9% 6-11 (Same as: l 08:15: BD [place] 00 Posiflush) PEPCID 20 Yes prn [facility] MG ORAL TAB 6-11 ity of 04:52: [address] 1 Yes None Univer s ORAL TAB 6-11 Entered ity of 04:52: [address] M-VIT ORAL Yes None Univers 6-11 Entered ity of 04:52: [address] PEPCID 20 Yes prn [facility] MG ORAL TAB 6-11 ity of 04:52: [address] 1 Yes None Univer s ORAL TAB 6-11 Entered ity of 04:52: [address] M-VIT ORAL Yes None Univers 6-11 Entered ity of 04:52: [address] PEPCID 20 Yes prn [facility] MG ORAL TAB 6-11 ity of 04:52: [address] 1 Yes None Univer s ORAL TAB 6-11 Entered ity of 04:52: [address] M-VIT ORAL Yes None Univers 6-11 Entered ity of 04:52: [address] PEPCID 20 Yes prn [facility] MG ORAL TAB 6-11 ity of 04:52: [address] 1 Yes None Univer s ORAL TAB 6-11 Entered ity of 04:52: [address] M-VIT ORAL Yes None Univers 6-11 Entered ity of 04:52: [address] PEPCID 20 Yes prn [facility] MG ORAL TAB 6-10 ity of 23:52: [address] B COMPLEX 1 Yes None Univer s ORAL TAB 6-10 Entered ity of 23:52: [address] M-VIT ORAL Yes None Univers 6-10 Entered ity of 23:52: [address] PEPCID 20 Yes prn [facility] MG ORAL TAB 6-10 ity of 23:52: [address] B COMPLEX 1 Yes None Univer s ORAL TAB 6-10 Entered ity of 23:52: [address] M-VIT ORAL Yes None Univers 6-10 Entered ity of 23:52: [address] Levetiracet Yes 500 mg = 1 [...] tab, PO, l tablet 15:03: Daily, 0 [place] 00 Refill(s) lisinopril Yes 20 mg = 1 Me moria 20 mg oral 6-05 tab, PO, l tablet 15:03: Q12H, 0 [place] 00 Refill(s) Insulin Yes 25 unit, [facility] a Glargine 6-05 SUB-Q, l 100 UNT/ML 15:03: Bedtime, 0 H [facility] Injectable 00 Refill(s) Solution [Lantus] amLODIPine Yes 10 mg = 1 Me moria 10 mg oral 6-05 tab, PO, l tablet 15:03: Daily, 0 [place] 00 Refill(s) Potassium No Notes: [facility] a Chloride 6-05 (Same as: l 14:56: K-Dur 20) [place] 00 "Do Not Crush" For patients unable to swallow tablet, dissolve in one half glass of water. Allow about 2 minutes for the tablets to disintegra te. Stir before giving to prepare slurry and administer . Please exclude Patient s with feeding tube less than 14 [place] (Dobhoff, J-tube etc) and pediatric and patients. With food and full glass of water Potassium 0 No Notes: [facility] a Chloride 6-04 (Same as: l 16:00: K-Dur 20) [place] 00 "Do Not Crush" For patients unable to swallow tablet, dissolve in one half glass of water. Allow about 2 minutes for the tablets to disintegra te. Stir before giving to prepare slurry and administer . Please exclude Patient s with feeding tube less than 14 [place] (Dobhoff, J-tube etc) and pediatric and patients. [...] s with feeding tube less than 14 [place] (Dobhoff, J-tube etc) and pediatric and patients. With food and full glass of water Clonidine No Notes: Memori a 6-03 (Same As: l 21:00: Catapres) [place] 00 Sodium Yes 3 gm = 3 [facility] Chloride 6-03 tab, [place], l 1000 MG 18:08: TID-Before Herm roxanne Oral Tablet 00 Meals, # 63 tab, 0 Refill(s) Hydralazine 0 Yes PO, Q6H, 0 [facility] Hydrochlori 6-03 Refill(s) l de 100 MG 18:08: [place] Oral Tablet 00 amLODIPine No 5 mg = 1 Mem oria 5 mg oral 6-03 tab, PO, l tablet 18:08: Q12H, 0 [place] 00 Refill(s) Insulin 2018-0 No 60 units) Dirk reji regular 02-10 WASTE: F/P l 23:44: - Black; E [place] - Municipal Trash Bin Stable for 28 days at room temperatur e Expires in days from ____Date Glucagon 0 No 1 mg, [facility] 6- Route: IM, l 23:44: Drug form: [place] 00 PDR/INJ, PRN, Dosing Weight 82.8, kg, PRN Blood Glucose Results, Start date: 02/10/18 18:44:00 CDT, Duration: 30 day, Stop date: 03/12/18 18:43:00 CDT Dextrose 2017-0 No 25 gm, 50 Dirk reji 50% Syringe 02-10 mL, Route: l 23:44: IVP, Drug [place] 00 Form: INJ, Dosing Weight 82.8, kg, PRN, PRN Blood Glucose Results, Start date: 02/10/18 18:44:00 CDT, Duration: 30 day, Stop date: 03/12/18 18:43:00 CDT Sodium 2018- No 3 gm, 3 [facility] Chloride 02-10 tab, l 1000 MG 12:30: Route: [place], Herm roxanne Oral Tablet 00 Drug form: TAB, TID-Before Meals, Dosing Weight 82.8, kg, Start date: 02/10/18 7:30:00 CDT, Duration: 30 day, Stop date: 03/11/18 16:30:00 CDT Potassium 2017-0 No Notes: [facility] a Chloride - (Same as: l 1.33 MEQ/ML 23:56: Potassium H [place] Oral 00 Chloride) Solution Hydralazine No Notes: Dirk reji Hydrochlori - (Same as: l de 50 MG 23:00: [...] reji 6-01 acetaminop l 18:34: hen = [place] 00 4000mg/day (4 gm/day). (Same as: Tylenol) hydrALAZINE No Notes: Dirk reji 6-01 (Same as: l 13:19: Apresoline [place] 00 ) May interfere w/enteral feedings Take [...] Memoria 5-31 (Same as: l 18:18: Norvasc) [place] 00 heparin No Notes: [facility] sodium, 5-31 porcine l porcine 14:00: heparin [place] 2500 UNT/ML 00 Injectable Solution Lisinopril No Notes: Memor ia 5-31 (Same as: l 14:00: Prinivil, [place] 00 Zestril) Bystolic No Notes: [facility] 5-31 (same as: l 14:00: Bystolic) [place] Nicardipine No Notes: Dirk reji 5-31 Same as: l 08:09: Cardene [place] Concentrat ion: (0.1 mg/ 1 ml) nebivolol No 10 mg = 1 Mem oria 10 MG Oral 5-31 tab, PO, l Tablet 03:55: Daily, # [place] [Bystolic] 00 30 tab, 0 Refill(s) Bystolic No PO, Daily, Mem oria 5-31 0 l 03:55: Refill(s) [place] 00 Coreg No Notes: [facility] 5-30 Give with l 22:53: food. [place] 00 (Same As: Coreg) Lisinopril No Notes: Memor ia 5-30 (Same as: l 13:59: Prinivil, [place] 00 Zestril) Insulin No Notes: [facility] Glargine 5-30 Same as: l 100 UNT/ML 13:58: Lantus) Do [facility] [place] Injectable 00 not hold Solution insulin [Lantus] without contacting prescriber WASTE: F/P - Black; E - Municipal Trash Bin Insulin No 60 units) Dirk reji regular 5-30 WASTE: F/P l 13:57: - Black; E [place] 00 - Municipal Trash Bin Stable for 28 days at room temperatur e Expires in days from ____Date Dextrose No 25 gm, 50 Dirk reji 50% Syringe 5-30 mL, Route: l 13:57: IVP, Drug [place] 00 Form: INJ, Dosing Weight 82.8, kg, PRN, PRN Blood Glucose Results, Start date: 02/07/18 8:57:00 CDT, Duration: 30 day, Stop date: 03/09/18 8:56:00 CDT Glucagon No 1 mg, [facility] 5-30 Route: IM, l 13:57: Drug form: [place] 00 PDR/INJ, PRN, Dosing Weight 82.8, kg, PRN Blood Glucose Results, Start date: 02/07/18 8:57:00 CDT, Duration: 30 day, Stop date: 03/09/18 8:56:00 CDT heparin No Notes: [facility] sodium, 5-30 porcine l porcine 13:00: heparin [place] 2500 UNT/ML 00 Injectable Solution Insulin No Notes: [facility] Glargine 5-30 Same as: l 100 UNT/ML 02:00: Lantus) Do [facility] [place] Injectable 00 not hold Solution insulin [Lantus] without contacting prescriber WASTE: F/P - Black; E - Municipal Trash Bin Zocor No Notes: [facility] 5-30 (Same as: l 02:00: Zocor) [place] 00 Melatonin 3 No Notes: Dirk reji MG Extended 5-30 (Same as: l Release 02:00: Melatonin) Herm roxanne Tablet 00 Levetiracet No Notes: Dirk reji am 5-29 (Same l 23:00: as:Keppra) [place] 00 Sodium No 3 gm, 3 [facility] Chloride 5-29 tab, l 1000 MG 18:00: Route: [place], Herm roxanne Oral Tablet 00 Drug form: TAB, QID, Dosing Weight 82.8, kg, Start date: 02/06/18 13:00:00 CDT, Duration: 30 day, Stop date: 03/08/18 9:00:00 CDT acetaminoph No Notes: Max [facility] en 5-29 acetaminop l 14:48: hen = [place] 4000mg/day (4 gm/day). (Same as: Tylenol) Bystolic No Notes: [facility] 5-29 (same as: l 14:00: Bystolic) Protonix No Notes: [facility] 5-29 Tablet l 14:00: should not be chewed or crushed. (Same as: Protonix) Flomax No Notes: [facility] 5-29 (Same As: l 14:00: Flomax) "Do Not Crush" Tylenol No 100.4 F, Memor ia 5-29 Start l 13:18: date: [place] 00 02/06/18 8:18:00 CDT, Duration: 30 day, Stop date: 03/08/18 8:17:00 CDT Keppra No Notes: [facility] 5-29 Same as l 11:00: Keppra Mix with 100 mL NS, LR or D5W MEDICATION WASTE Product Size: 500 mg Product Wasted: ___ mg lisinopril No 40 mg = 1 Me moria 40 mg oral 5-29 tab, PO, l tablet 03:54: Daily Fluoxetine Yes 20 mg = 1 Me moria 20 MG Oral 5-29 cap, PO, l Capsule 03:54: Daily [Prozac] gabapentin Yes 300 mg = 1 M emoria 300 MG Oral 5-29 cap, PO, l Capsule 03:54: TID amitriptyli No 100 mg = 1 Memoria [...] MG 03:54: BID-Meals Her antonio Oral Tablet 00 Simvastatin Yes 20 mg = 1 M emoria 20 MG Oral 5-29 tab, PO, l Tablet 03:54: Bedtime [place] [Zocor] 00 nebivolol No 10 mg = 1 Mem oria 10 MG Oral 5-29 tab, PO, l Tablet 03:54: Daily [place] [Bystolic] 00 Tamsulosin Yes 0.4 mg = 1 M emoria hydrochlori 5-29 cap, PO, l de 0.4 MG 03:54: Daily [place] Oral 00 Capsule [Flomax] Omeprazole Yes 20 mg = 1 Me moria 20 MG 5-29 cap, PO, l Enteric 03:54: Daily [place] Coated 00 Capsule [Prilosec] Insulin No 20 unit, [facility] a Glargine 5-29 SUB-Q, l 100 UNT/ML 03:54: Bedtime Herm roxanne Injectable Solution [Lantus] Saline No Notes: [facility] Flush 0.9% 5-29 (Same as: l 02:00: BD [place] 00 Posiflush) Docusate No Notes: [facility] 5-29 (Same as: l 02:00: Colace) [place] 00 sennosides, No Notes: Dirk reji FPC 5-29 (Same as: l 02:00: Senokot) Tylenol No Notes: Do Memor ia 5-29 not exceed l 01:30: 4 gm/day. [place] 00 (Same as: Tylenol) Labetalol No 10 mg, 2 Dirk reji 5-29 mL, Route: l 01:30: IVP, Drug form: INJ, Q1H, Dosing Weight 80, kg, PRN Hypertensi on, Start date: 02/05/18 20:30:00 CDT, Duration: 30 day, Stop date: 03/07/18 20:29:00 CDT Hydralazine No Notes: Dirk reji 02-06 (Same as: l 01:30: Apresoline ) Push over 5 minutes Calcium No Notes: [facility] Carbonate 02-06 (Same As: l 500 MG 01:25: Tums) [place] able 00 Calcium Tablet Carbonate 500 mg = 200 mg elemental calcium Dose = mg calcium carbonate ( mg elemental calcium) Magnesium No Notes: Memori a Oxide 02-06 (Same as: l 01:25: Mag-Ox 400) Magnesium oxide 828yr=[id number] g elemental magnesium Dose=____m g magnesium oxide (___mg elemental magnesium) Calcium No Notes: [facility] Gluconate 02-06 WASTE: F/P l 01:25: - Sink; E - Municipal Trash Bin Magnesium No Notes: [facility] a Sulfate 02-06 WASTE: F/P l 01:25: - Sink; E - Municipal Trash Bin Potassium No Notes: [facility] a Chloride 02-06 (Same as: l 01:25: KCL) Infuse no faster than 10 mEq/hr if given peripheral ly. potassium No Notes: Memori a phosphate-s 02-06 (Same as: l odium 01:25: Phos-NaK) phosphate 00 Each 1.5 250 mg-280 gm pkt has mg-160 mg 250mg oral powder phosphorou for s. Mix reconstitut w/2.5oz ion water and stir. potassium No Notes: Memori a phosphate 02-06 (Same as: l 01:25: K Phosphate. ) 1 mMol phoshate has 1.47 mEq potassium Infuse over 4 hours sodium No 30 mmol, [facility] phosphate 5-29 10 mL, l 01:25: Route: [place] 00 IVPB, PRN, Dosing Weight 80, kg, PRN Abnormal Lab Result, Start date: 02/05/18 20:25:00 CDT, Duration: 30 day, Stop date: 03/07/18 20:24:00 CDT, FOR ICU USE ONLY Sodium 2017-0 No 1,000 mL, [facility] a Chloride 5-29 1,000 l 0.9% 01:21: ml/hr, [place] (Bolus) IV 00 Infuse Over: 1 hr, Route: IV, 1,000, Drug form: INJ, ONCE, Priority: STAT, Dosing Weight 80 kg, Start date: 02/05/18 20:21:00 CDT, Stop date: 02/05/18 20:21:00 CDT Sodium 2018-0 No 1,000 mL, Memori a Chloride -29 Rate: 50 l 0.9% IV 01:21: ml/hr, [place] 1,000 mL 00 Infuse over: 20 hr, Route: IV, Dosing Weight 82.8 kg, Total Volume: 1,000, Start date: 02/05/18 20:21:00 CDT, Stop date: 03/07/18 20:20:00 CDT Lorazepam No Notes: Memori a 5-29 (Same as: l 00:29: Ativan) [place] Ativan No Notes: [facility] - (Same as: l 23:56: Ativan) Ativan No 1 mg, [facility] 5-28 Route: l 23:48: IVP, Drug form: INJ, ONCE, Dosing Weight 80, kg, PRN Anxiety, Start date: 02/05/18 18:48:00 CDT Dextrose 0 No 6.25 gm, Memor ia 50% Syringe 02-05 12.5 mL, l 23:05: Route: [place] IVP, Drug Form: INJ, Dosing Weight 80, kg, PRN, PRN Abnormal Lab Result, Start date: 02/05/18 18:05:00 CDT, Duration: 30 day, Stop date: 03/07/18 18:04:00 CDT Regular 2017-0 No 60 units) Dirk reji Insulin, 02-05 WASTE: F/P l Human 100 23:05: - Black; E [place] [facility] UNT/ML 00 - Injectable Municipal Solution Trash Bin Stable for 28 days at room temperatur e Expires in days from ____Date Saline No Notes: [facility] Flush 0.9% - (Same as: l 23:05: BD [place] 00 Posiflush) Sodium No 10,000 mL, Memor ia Chloride 02-05 Rate: 50 l 0.9% IV 23:05: ml/hr, [place] [address] mL 00 Infuse over: 200 hr, Route: IV, Dosing Weight 80 kg, Total Volume: 10,000, Start date: 02/05/18 18:05:00 CDT, Duration: 30 day, Stop date: 03/07/18 18:04:00 CDT Acetaminoph No Notes: Do M emoria en 325 MG / 02-05 not exceed l Hydrocodone 23:05: 4gm/day of [place] Bitartrate 00 acetaminop 10 MG Oral hen. (Same Tablet as: [place] 325/10) Acetaminoph No Notes: Dirk reji en 325 MG / 02-05 (Same as: l Hydrocodone 23:05: [place] nn Bitartrate 00 325/5) Do 5 MG Oral not exceed Tablet 4gm/day of acetaminop hen. Morphine No Notes: [facility]oria - (Same l 23:05: as:MORPhin [place] 00 e Sulfate) Bisacodyl No Notes: Memori a - (Same As: l 23:05: Dulcolax, [place] 00 Bisco-Lax) Keppra No Notes: [facility] - Same as l 22:43: Keppra Mix [place] 00 with 100 mL NS, LR or D5W MEDICATION WASTE Product Size: 500 mg Product Wasted: ___ mg Cardene 40 No Notes: Memor ia mg in NS 02-05 Same as: l 200 mL 22:37: Cardene [place] (Titrate.) 00 Concentrat IV 20 mg ion: (0.1 mg/ 1 ml) lisinopriL 2014-09 Yes 40mg Take [address] (PRINIVIL,Z 2-21 by mouth [facility] ESTRIL) 40 00:00: Daily Medica l MG tablet 00 (1800). [facility] lisinopriL 2014-09 Yes 40mg Take [address] (PRINIVIL,Z 2-21 by mouth [facility] ESTRIL) 40 00:00: Daily Medica l MG tablet 00 (1800). [place] lisinopriL 2014-09 Yes 40mg Take [address] (PRINIVIL,Z 2-21 by mouth Luke s ESTRIL) 40 00:00: Daily Medica l MG tablet 00 (1800). [place] lisinopriL 2014-09 Yes 40mg Take [address] (PRINIVIL,Z 2-21 by mouth Luke s ESTRIL) 40 00:00: Daily Medica l MG tablet 00 (1800). [place] lisinopriL 2014-09 Yes 40mg Take [address] (PRINIVIL,Z 2-21 by mouth Luke s ESTRIL) 40 00:00: Daily Medica l MG tablet 00 (1800). [place] lisinopriL 2014-09 Yes 40mg Take [address] (PRINIVIL,Z 2-21 by mouth Luke s ESTRIL) 40 00:00: Daily Medica l MG tablet 00 (1800). [place] lisinopriL 2014-09 Yes 40mg Take [address] (PRINIVIL,Z 2-21 by mouth Luke s ESTRIL) 40 00:00: Daily Medica l MG tablet 00 (1800). [place] lisinopriL 2014-09 Yes 40mg Take [address] (PRINIVIL,Z 2-21 by mouth Luke s ESTRIL) 40 00:00: Daily Medica l MG tablet 00 (1800). [place] PROTONIX 40 Yes [id number] 1 tab PO Univers MG ORAL 4-01 daily ity of TBEC 00:00: [place] [facility] PROTONIX 40 Yes [id number] 1 tab PO Univers MG ORAL 4-01 daily ity of TBEC 00:00: [facility] PROTONIX 40 Yes [id number] 1 tab PO Univers MG ORAL 4-01 daily ity of TBEC 00:00: [facility] PROTONIX 40 Yes [id number] 1 tab PO Univers MG ORAL 4-01 daily ity of TBEC 00:00: [place] [facility] PROTONIX 40 Yes [id number] 1 tab PO Univers MG ORAL 4-01 daily ity of TBEC 00:00: [place] [facility] PROTONIX 40 2008-0 Yes [id number] 1 tab PO Univers MG ORAL 4-01 daily ity of TBEC 00:00: [place] 00 [facility] PROTONIX 40 2008-0 2021- No [id number] 1 tab PO Univers MG ORAL 4-01 10-15 daily ity of TBEC 00:00: 00:00 [place] 00 :00 [facility] PROTONIX 40 2008-0 2- No [id number] 1 tab PO Univers MG ORAL 4-01 10-15 daily ity of TBEC 00:00: 00:00 [place] 00 :00 [facility] ENALAPRIL 2009-0 Yes [id number] 1 tab po Univers MALEATE 20 1-15 BID ity of MG ORAL TAB 00:00: [place] 00 [facility] ENALAPRIL 2009-0 Yes [id number] 1 tab po Univers MALEATE 20 1-15 BID ity of MG ORAL TAB 00:00: [place] 00 [facility] ENALAPRIL 2009-0 Yes [id number] 1 tab po Univers MALEATE 20 1-15 BID ity of MG ORAL TAB 00:00: [place] 00 [facility] ENALAPRIL 2009-0 Yes [id number] 1 tab po Univers MALEATE 20 1-15 BID ity of MG ORAL TAB 00:00: [place] 00 [facility] ENALAPRIL 2009-0 Yes [id number] 1 tab po Univers MALEATE 20 1-15 BID ity of MG ORAL TAB 00:00: [place] 00 [facility] ENALAPRIL 2009-0 Yes [id number] 1 tab po Univers MALEATE 20 1-15 BID ity of MG ORAL TAB 00:00: [place] 00 [facility] ENALAPRIL 2009-0 2022- No [id number] 1 tab po Univers MALEATE 20 1-15 10-15 BID ity of MG ORAL TAB 00:00: 00:00 [place] 00 :00 [facility] ENALAPRIL 2009-0 2022- No [id number] 1 tab po Univers MALEATE 20 1-15 10-15 BID ity of MG ORAL TAB 00:00: 00:00 [place] 00 :00 [facility] HYDROCHLORO 2008-1 Yes [id number] take 1 po Univers THIAZIDE 25 0-30 daily ity of MG ORAL TAB 00:00: [place] 00 [facility] HYDROCHLORO 2008-1 Yes [id number] take 1 po [facility] THIAZIDE 25 0-30 daily ity of MG ORAL TAB 00:00: [place] [facility] HYDROCHLORO 2007-09 Yes [id number] take 1 po [facility] THIAZIDE 25 0-30 daily ity of MG ORAL TAB 00:00: [place] [facility] HYDROCHLORO 2007- Yes [id number] take 1 po Univers THIAZIDE 25 0-30 daily ity of MG ORAL TAB 00:00: [place] [facility] HYDROCHLORO 2007-09 Yes [id number] take 1 po [facility] THIAZIDE 25 0-30 daily ity of MG ORAL TAB 00:00: [place] [facility] HYDROCHLORO 2007-09 Yes [id number] take 1 po [facility] THIAZIDE 25 0-30 daily ity of MG ORAL TAB 00:00: [place] [facility] HYDROCHLORO 2007-2021- No [id number] take 1 po [facility] THIAZIDE 25 0-30 10-15 daily ity of MG ORAL TAB 00:00: 00:00 [place] 00 :00 [facility] HYDROCHLORO 2007-09- No [id number] take 1 po [facility] THIAZIDE 25 0-30 10-15 daily ity of MG ORAL TAB 00:00: 00:00 [place] 00 :00 [facility] GLIPIZIDE 5 Yes [...] [place] 00 :00 [facility] GLIPIZIDE 5 2- No tske 2 tab Univers MG ORAL TAB 05-20 10-15 qam and 1 it y of 00:00: 00:00 tab qpm [place] 00 :00 [facility] ATENOLOL 0 Yes [id number] one tab po Univers 100 MG ORAL 8-27 daily ity of TAB 00:00: [place] [facility] NORCO 2007-0 Yes 1 tab po Univers 7.5-325 MG 8-27 TID ity of ORAL TAB 00:00: [place] [facility] AMITRIPTYLI Yes 2 tabs QHS Univers NE 50 MG 8-27 ity of ORAL TAB 00:00: [place] [facility] METFORMIN 2007-0 Yes [id number] 1 tab PO Univers 850 MG ORAL 8-27 TID ity of TAB 00:00: [place] [facility] CLONIDINE 2007-0 Yes [id number] take 1 po Univers 0.2 MG ORAL 8-27 qid for 1 ity of TAB 00:00: week, then [place] 00 tid for 1 Medical week, then Branch bid and prn thereafter PRAVASTATIN Yes [id number] take 1 po Univers 40 MG ORAL 8-27 qhs ity of TAB 00:00: [place] [facility] ATENOLOL 2007-0 Yes [id number] one tab po Univers 100 MG ORAL 8-27 daily ity of TAB 00:00: [place] [facility] NORCO 2007-0 Yes 1 tab po Univers 7.5-325 MG 8-27 TID ity of ORAL TAB 00:00: [place] [facility] AMITRIPTYLI 0 Yes 2 tabs QHS Univers NE 50 MG 8-27 ity of ORAL TAB 00:00: [place] [facility] METFORMIN 2007-0 Yes [id number] 1 tab PO Univers 850 MG ORAL 8-27 TID ity of TAB 00:00: [place] [facility] CLONIDINE 2007-0 Yes [id number] take 1 po Univers 0.2 MG ORAL 8-27 qid for 1 ity of TAB 00:00: week, then [place] 00 tid for 1 Medical week, then Branch bid and prn thereafter PRAVASTATIN 2007- Yes [id number] take 1 po Univers 40 MG ORAL 8-27 qhs ity of TAB 00:00: [place] 00 [facility] ATENOLOL Yes [id number] one tab po Univers 100 MG ORAL 8-27 daily ity of TAB 00:00: [place] [facility] NORCO Yes 1 tab po Univers 7.5-325 MG 8-27 TID ity of ORAL TAB 00:00: [place] [facility] AMITRIPTYLI Yes 2 tabs QHS Univers NE 50 MG 8-27 ity of ORAL TAB 00:00: [place] [facility] METFORMIN Yes [id number] 1 tab PO Univers 850 MG ORAL 8-27 TID ity of TAB 00:00: [place] [facility] CLONIDINE Yes [id number] take 1 po Univers 0.2 MG ORAL 8-27 qid for 1 ity of TAB 00:00: week, then [place] 00 tid for 1 Medical week, then Branch bid and prn thereafter PRAVASTATIN Yes [id number] take 1 po Univers 40 MG ORAL 8-27 qhs ity of TAB 00:00: [place] [facility] ATENOLOL Yes [id number] one tab po Univers 100 MG ORAL 8-27 daily ity of TAB 00:00: [place] [facility] NORCO Yes 1 tab po Univers 7.5-325 MG 8-27 TID ity of ORAL TAB 00:00: [facility] AMITRIPTYLI Yes 2 tabs QHS Univers NE 50 MG 8-27 ity of ORAL TAB 00:00: [place] [facility] METFORMIN 2007- Yes [id number] 1 tab PO Univers 850 MG ORAL 8-27 TID ity of TAB 00:00: [place] [facility] CLONIDINE Yes [id number] take 1 po Univers 0.2 MG ORAL 8-27 qid for 1 ity of TAB 00:00: week, then [place] 00 tid for 1 Medical week, then Branch bid and prn thereafter PRAVASTATIN Yes [id number] take 1 po Univers 40 MG ORAL 8-27 qhs ity of TAB 00:00: [place] [facility] ATENOLOL Yes [id number] one tab po Univers 100 MG ORAL 8-27 daily ity of TAB 00:00: [place] [facility] NORCO Yes 1 tab po Univers 7.5-325 MG 8-27 TID ity of ORAL TAB 00:00: [place] 00 [facility] AMITRIPTYLI Yes 2 tabs QHS Univers NE 50 MG 8-27 ity of ORAL TAB 00:00: [place] [facility] METFORMIN 2007-0 Yes [id number] 1 tab PO Univers 850 MG ORAL 8-27 TID ity of TAB 00:00: [place] 00 [facility] CLONIDINE Yes [id number] take 1 po Univers 0.2 MG ORAL 8-27 qid for 1 ity of TAB 00:00: week, then [place] 00 tid for 1 Medical week, then Branch bid and prn thereafter PRAVASTATIN Yes [id number] take 1 po [facility] 40 MG ORAL 8-27 qhs ity of TAB 00:00: [place] [facility] ATENOLOL Yes [id number] one tab po [facility] 100 MG ORAL 8-27 daily ity of TAB 00:00: [place] [facility] NORCO Yes 1 tab po [facility] 7.5-325 MG 8-27 TID ity of ORAL TAB 00:00: [facility] AMITRIPTYLI Yes 2 tabs QHS [facility] [place] 50 MG 8-27 ity of ORAL TAB 00:00: [place] [facility] METFORMIN Yes [id number] 1 tab PO [facility] 850 MG ORAL 8-27 TID ity of TAB 00:00: [place] [facility] CLONIDINE Yes [id number] take 1 po [facility] 0.2 MG ORAL 8-27 qid for 1 ity of TAB 00:00: week, then [place] 00 tid for 1 Medical week, then Branch bid and prn thereafter PRAVASTATIN Yes [id number] take 1 po [facility] 40 MG ORAL 8-27 qhs ity of TAB 00:00: [place] [facility] ATENOLOL 2007-0 2021- No [id number] one tab po [facility] 100 MG ORAL 8-27 10-15 daily ity of TAB 00:00: 00:00 [place] 00 :00 [facility] NORCO 2007-0 2021- No 1 tab po Univers 7.5-325 MG 8-27 10-15 TID ity of ORAL TAB 00:00: 00:00 [place] 00 :00 [facility] AMITRIPTYLI 2021- No 2 tabs QHS Univers NE 50 MG 8-27 10-15 ity of ORAL TAB 00:00: 00:00 [place] 00 :00 [facility] METFORMIN 2007-2- No [id number] 1 tab PO Univers 850 MG ORAL 8-27 10-15 TID ity of TAB 00:00: 00:00 [place] 00 :00 [facility] CLONIDINE 2021- No [id number] take 1 po Univers 0.2 MG ORAL 8-27 10-15 qid for 1 it y of TAB 00:00: 00:00 week, then [place] 00 :00 tid for 1 Medical week, then Branch bid and prn thereafter PRAVASTATIN 2021- No [id number] take 1 po Univers 40 MG ORAL 8-27 10-15 qhs ity of TAB 00:00: 00:00 [place] 00 :00 [facility] ATENOLOL 2021- No [id number] one tab po Univers 100 MG ORAL 8-27 10-15 daily ity of TAB 00:00: 00:00 [place] 00 :00 [facility] NORCO 2021- No 1 tab po Univers 7.5-325 MG 8-27 10-15 TID ity of ORAL TAB 00:00: 00:00 [place] 00 :00 [facility] AMITRIPTYLI 2021- No 2 tabs QHS Univers NE 50 MG 8-27 10-15 ity of ORAL TAB 00:00: 00:00 [place] 00 :00 [facility] METFORMIN 2021- No [id number] 1 tab PO Univers 850 MG ORAL 8-27 10-15 TID ity of TAB 00:00: 00:00 [place] 00 :00 [facility] CLONIDINE 2007-2021- No [id number] take 1 po Univers 0.2 MG ORAL 8-27 10-15 qid for 1 it y of TAB 00:00: 00:00 week, then [place] 00 :00 tid for 1 Medical week, then Branch bid and prn thereafter PRAVASTATIN 2021- No [id number] take 1 po Univers 40 MG ORAL 8-27 10-15 qhs ity of TAB 00:00: 00:00 [place] 00 :00 [facility] CLONIDINE Yes [id number] 1 tab tid Univers 0.3 MG ORAL 4-30 and prn ity o f TAB 00:00: [place] 00 [facility] CLONIDINE Yes [id number] 1 tab tid Univers 0.3 MG ORAL 4-30 and prn ity o f TAB 00:00: [place] [facility] CLONIDINE 2007- Yes [id number] 1 tab tid Univers 0.3 MG ORAL 4-30 and prn ity o f TAB 00:00: [place] [facility] CLONIDINE 2007-0 Yes [id number] 1 tab tid Univers 0.3 MG ORAL 4-30 and prn ity o f TAB 00:00: Medical Branch CLONIDINE 2007- Yes [id number] 1 tab tid Univers 0.3 MG ORAL 4-30 and prn ity o f TAB 00:00: [place] [facility] CLONIDINE 2007- Yes [id number] 1 tab tid Univers 0.3 MG ORAL 4-30 and prn ity o f TAB 00:00: [place] [facility] CLONIDINE 2007-0 2021- No [id number] 1 tab tid Univers 0.3 MG ORAL 4-30 10-15 and prn ity of TAB 00:00: 00:00 [place] 00 :00 [facility] CLONIDINE 2007-0 2021- No [id number] 1 tab tid Univers 0.3 MG ORAL 4-30 10-15 and prn ity of TAB 00:00: 00:00 [place] 00 :00 [facility] ASPIRIN 325 2006- Yes [id number] 1 tab U nivers MG ORAL TAB 0-04 daily ity of 00:00: [place] [facility] ASPIRIN 325 2006- Yes [id number] 1 tab U nivers MG ORAL TAB 0-04 daily ity of 00:00: [place] [facility] ASPIRIN 325 2006- Yes [id number] 1 tab U nivers MG ORAL TAB 0-04 daily ity of 00:00: [place] [facility] ASPIRIN 325 2006- Yes [id number] 1 tab U nivers MG ORAL TAB 0-04 daily ity of 00:00: [place] [facility] ASPIRIN 325 2006- Yes [id number] 1 tab U nivers MG ORAL TAB 0-04 daily ity of 00:00: [place] [facility] ASPIRIN 325 2006- Yes [id number] 1 tab U nivers MG ORAL TAB 0-04 daily ity of 00:00: [place] [facility] ASPIRIN 325 2006-2021- No [id number] 1 tab Univers MG ORAL TAB 0-04 10-15 daily ity of 00:00: 00:00 [place] 00 :00 [facility] ASPIRIN 325 2006- 2022- No [id number] 1 tab Univers MG ORAL TAB 0-04 10-15 daily ity of 00:00: 00:00 [place] 00 :00 [facility] Immunizations Ordered Filled Immunization Date Status Comments Sour e Immunization Name Name Influenza Virus 2007-06-20 Completed Universit y of Vaccine 00:00:00 [facility] Influenza Virus 2007-06-20 Completed Universit y of Vaccine 00:00:00 [facility] Influenza Virus 2007-06-20 Completed Universit y of Vaccine 00:00:00 [facility] Influenza Virus 2007-06-20 Completed Universit y of Vaccine 00:00:00 [facility] Influenza Virus 2007-06-20 Completed Universit y of Vaccine 00:00:00 [facility] Influenza Virus 2007-06-20 Completed Universit y of Vaccine 00:00:00 [facility] Influenza Virus 2007-06-20 Completed Universit y of Vaccine 00:00:00 [facility] Influenza Virus 2007-06-20 Completed Universit y of Vaccine 00:00:00 [facility] Influenza Virus 2007-06-20 Completed Universit y of Vaccine 00:00:00 [facility] Influenza Virus 2007-06-20 Completed Universit y of Vaccine 00:00:00 [facility] Influenza Virus 2007-06-20 Completed Universit y of Vaccine 00:00:00 [facility] Influenza Virus 2007-06-20 Completed Universit y of Vaccine 00:00:00 [facility] Influenza Virus 2007-06-20 Completed Universit y of Vaccine 00:00:00 [facility] Influenza Virus 2007-06-20 Completed Universit y of Vaccine 00:00:00 [facility] Influenza Virus 2007-06-20 Completed Universit y of Vaccine 00:00:00 [facility] Influenza Virus 2007-06-20 Completed Universit y of Vaccine 00:00:00 [facility] Influenza Virus 2007-06-20 Completed Universit y of Vaccine 00:00:00 [facility] Influenza Virus 2007-06-20 Completed Universit y of Vaccine 00:00:00 [facility] Influenza Virus 2007-06-20 Completed Universit y of Vaccine 00:00:00 [facility] Influenza Virus 2007-06-20 Completed Universit y of Vaccine 00:00:00 [facility] Influenza Virus 2007-06-20 Completed Universit y of Vaccine 00:00:00 [facility] Influenza Virus 2007-06-20 Completed Universit y of Vaccine 00:00:00 [facility] Influenza Virus 2007-06-20 Completed Universit y of Vaccine 00:00:00 [facility] Influenza Virus 2007-06-20 Completed Universit y of Vaccine 00:00:00 [facility] Influenza Virus 2006-07-26 Completed Universit y of Vaccine 00:00:00 [facility] Influenza Virus 2006-07-26 Completed Universit y of Vaccine 00:00:00 [facility] Influenza Virus 2006-07-26 Completed Universit y of Vaccine 00:00:00 [facility] Influenza Virus 2006-07-26 Completed Universit y of Vaccine 00:00:00 [facility] Influenza Virus 2006-07-26 Completed Universit y of Vaccine 00:00:00 [facility] Influenza Virus 2006-07-26 Completed Universit y of Vaccine 00:00:00 [facility] Influenza Virus 2006-07-26 Completed Universit y of Vaccine 00:00:00 [facility] Influenza Virus 2006-07-26 Completed Universit y of Vaccine 00:00:00 [facility] Influenza Virus 2006-07-26 Completed Universit y of Vaccine 00:00:00 [facility] Influenza Virus 2006-07-26 Completed Universit y of Vaccine 00:00:00 [facility] Influenza Virus 2006-07-26 Completed Universit y of Vaccine 00:00:00 [facility] Influenza Virus 2006-07-26 Completed Universit y of Vaccine 00:00:00 [facility] Influenza Virus 2006-07-26 Completed Universit y of Vaccine 00:00:00 [facility] Influenza Virus 2006-07-26 Completed Universit y of Vaccine 00:00:00 [facility] Influenza Virus 2006-07-26 Completed Universit y of Vaccine 00:00:00 [facility] Influenza Virus 2006-07-26 Completed Universit y of Vaccine 00:00:00 [facility] Influenza Virus 2006-07-26 Completed Universit y of Vaccine 00:00:00 [facility] Influenza Virus 2006-07-26 Completed Universit y of Vaccine 00:00:00 [facility] Influenza Virus 2006-07-26 Completed Universit y of Vaccine 00:00:00 [facility] Influenza Virus 2006-07-26 Completed Universit y of Vaccine 00:00:00 [facility] Influenza Virus 2006-07-26 Completed Universit y of Vaccine 00:00:00 [facility] Influenza Virus 2006-07-26 Completed Universit y of Vaccine 00:00:00 [facility] Influenza Virus 2006-07-26 Completed Universit y of Vaccine 00:00:00 [facility] Influenza Virus 2006-07-26 Completed Universit y of Vaccine 00:00:00 [facility] Vital Signs Vital Name Observation Time Observation Value Comments Source WEIGHT 2020-03-24 76.658 kg 00:00:00 Systolic blood 2022-11-01 129 mm[Hg] University of pressure 17:28:00 [facility] Diastolic blood 2022-11-01 80 mm[Hg] University o f pressure 17:28:00 [facility] Heart rate 2022-11-01 77 /min University of 17:28:00 [facility] Body temperature 2022-11-01 36.67 Sindhu University of 17:28:00 [facility] Respiratory rate 2022-11-01 20 /min University of 17:28:00 [facility] Oxygen saturation 2022-11-01 94 /min University of in Arterial blood 17:28:00 [facility] joyce by Pulse oximetry Branch Body weight 2022-10-31 77.1 kg University of 14:00:00 [facility] BMI 2022-10-31 29.18 kg/m2 University of 14:00:00 [facility] Systolic blood 2022-10-08 139 mm[Hg] University of pressure 15:29:00 [facility] Diastolic blood 2022-10-08 85 mm[Hg] University o f pressure 15:29:00 [facility] Heart rate 2022-10-08 72 /min University of 15:29:00 [facility] Body temperature 2022-10-08 35.56 Sindhu University of 15:29:00 [facility] Respiratory rate 2022-10-08 22 /min University of 15:29:00 [facility] Oxygen saturation 2022-10-08 96 /min University of in Arterial blood 15:29:00 [place] [facility] joyce by Pulse oximetry Branch Body height 2022-10-06 162.6 cm University of 22:03:00 [facility] Body weight 2022-10-06 78.926 kg University of 22:03:00 [facility] BMI 2022-10-06 29.87 kg/m2 University of 22:03:00 [facility] Body weight 2022-09-30 70.308 kg University of 17:27:00 [facility] BMI 2022-09-30 29.87 kg/m2 University of 17:27:00 [facility] Systolic blood 2022-06-25 150 mm[Hg] University of pressure 16:28:00 [facility] Diastolic blood 2022-06-25 92 mm[Hg] University o f pressure 16:28:00 [facility] Heart rate 2022-06-25 102 /min University of 16:28:00 [facility] Body temperature 2022-06-25 36.5 Sindhu University of 16:28:00 [facility] Respiratory rate 2022-06-25 20 /min University of 16:28:00 [facility] Oxygen saturation 2022-06-25 91 /min University of in Arterial blood 16:28:00 [facility] by Pulse oximetry [place] Body weight 2022-06-21 71.215 kg University of 15::00 [facility] BMI 2022-06-21 26.13 kg/m2 University of 15::00 [facility] Body height 2022-06-20 165.1 cm University of 18:31:00 [facility] Systolic blood 2022-06-24 184 mm[Hg] University of pressure 12:28:00 beena/goodvioleta [place] [facility] [place] bedside Diastolic blood 2022-06-24 105 mm[Hg] dr Hernandez o f pressure 12:28:00 beena/goodwi [place] [facility] [place] bedside Heart rate 2022-06-24 79 /min University of 12:28:00 [facility] Body temperature 2022-06-24 36.5 Sindhu University of 12:28:00 [facility] Respiratory rate 2022-06-24 20 /min University of 12:28:00 [facility] Oxygen saturation 2022-06-24 95 /min University of in Arterial blood 12:28:00 [place] [facility] joyce by Pulse oximetry [place] Body weight 2022-06-21 71.215 kg University of 15:26:00 [facility] BMI 2022-06-21 26.13 kg/m2 University of 15:26:00 [facility] Body height 2022-06-20 165.1 cm University of 18:31:00 [facility] Systolic blood 2021-05-11 156 mm[Hg] University of pressure 01:25:00 [facility] Diastolic blood 2021-05-11 77 mm[Hg] [place] o f pressure 01:25:00 [facility] Heart rate 2021-05-11 65 /min [facility] 01:25:00 [facility] Body temperature 2021-05-11 36.94 Sindhu [facility] 01:25:00 [facility] Respiratory rate 2021-05-11 18 /min [facility] 01:25:00 [facility] Oxygen saturation 2021-05-11 96 /min [facility] in Arterial blood 01:25:00 [facility] by Pulse oximetry [place] Body weight 2021-05-10 68.04 kg [facility] 12:50:00 [facility] WEIGHT 2020-03-24 76.658 kg 00:00:00 Systolic (mm Hg) 2018-02-27 [facility] 18:06:00 Diastolic (mm Hg) 2018-02-27 [facility] ermann 18:06:00 Heart Rate 2018-02-27 [facility]ax n 18:06:00 Temperature Oral 2018-02-27 99.4 F [facility] rmann (F) 18:06:00 Respitory Rate 2018-02-27 [facility] 18:06:00 Systolic (mm Hg) 2018-02-27 [facility] 12:34:00 Diastolic (mm Hg) 2018-02-27 [facility] 12:34:00 Respitory Rate 2018-02-27 [facility] 12:34:00 Temperature Oral 2018-02-27 97.8 F [facility] rmann (F) 12:34:00 Heart Rate 2018-02-27 [facility] 12:34:00 Heart Rate 2018-02-27 [facility] 09:19:00 Temperature Oral 2018-02-27 98.1 F [facility] rmann (F) 09:19:00 Respitory Rate 2018-02-27 [facility] [...] [facility] 14:30:00 Heart Rate 2018-02-13 Elma Jax n 14:30:00 Temperature Oral 2018-02-13 96.8 F [facility]an rmann (F) 14:30:00 Respitory Rate 2018-02-13 [facility] 09:30:00 Systolic (mm Hg) 2018-02-13 [facility] 09:30:00 Diastolic (mm Hg) 2018-02-13 [facility] 09:30:00 Heart Rate 2018-02-13 [facility] 09:30:00 Temperature Oral 2018-02-13 97 F Elma Olmstead rmann (F) 09:30:00 Systolic (mm Hg) 2018-02-13 [facility] 04:55:00 Diastolic (mm Hg) 2018-02-13 [facility] ermann 04:55:00 Respitory Rate 2018-02-13 [facility] 04:55:00 Heart Rate 2018-02-13 [facility] 04:55:00 Temperature Oral 2018-02-13 97 F Elma [place]stead rmann (F) 04:55:00 Weight 2018-02-06 [facility] 03:59:00 BMI Calculated 2018-02-06 [facility] 03:59:00 Height 2018-02-06 162.56 cm [facility] 03:59:00 BMI Calculated 2018-02-06 [facility] 01:47:00 Height 2018-02-06 162.56 cm [facility] 01:47:00 Weight 2018-02-06 [facility] 01:47:00 Weight 2018-02-06 [facility] 01:46:00 Procedures Procedure Date / Time Performing Clinician Source Performed HOME HEALTH - OTHER 2022-11-11 Doctor Unassigned, Universit y of 06:01:00 [place] [facility] EXTERNAL PROVIDER RECORDS 2022-11-10 Doctor Unassigned, Uni versity of 06:01:00 [place] [facility] COVID-19 (ID NOW RAPID 2022-11-01 Gilbert Gerardo [facility] y of TESTING) 19:31:00 [facility] POCT GLUCOSE (AUTOMATED) 2022-11-01 Chel, Jarvis Univers ity of 17:45:00 [place] [facility] POCT GLUCOSE (AUTOMATED) 2022-11-01 Chel Jarvis Univers ity of 13:54:00 [place] [facility] POCT GLUCOSE (AUTOMATED) 2022-11-01 Chel Jarvis Univers ity of 01:54:00 [place] [facility] POCT GLUCOSE (AUTOMATED) 2022-10-31 Georgia Sharpon Univers ity of 22:16:00 [place] [facility] POCT GLUCOSE (AUTOMATED) 2022-10-31 Chel Jarvis Univers ity of 17:38:00 [place] [facility] POCT GLUCOSE (AUTOMATED) 2022-10-31 Georgia Sharpon Univers ity of 14:35:00 [place] [facility] POCT GLUCOSE (AUTOMATED) 2022-10-31 Georgia Sharpon Univers ity of 03:26:[address] [facility] Branch POCT GLUCOSE (AUTOMATED) 2022-10-30 Georgia Sharpon Univers ity of 17:29:[address] [facility] Branch POCT GLUCOSE (AUTOMATED) 2022-10-30 Jarvis Sharp Univers ity of 13:45:[address] [facility] Branch CBC WITHOUT DIFF 2022-10-30 [facility] of 10:52:00 [facility] Branch POCT GLUCOSE (AUTOMATED) 2022-10-30 Jarvis Sharp Univers ity of 01:54:00 [place] [facility] POCT GLUCOSE (AUTOMATED) 2022-10-29 Georgia Sharpon Univers ity of 22:49:00 [place] [facility] POCT GLUCOSE (AUTOMATED) 2022-10-29 Jarvis Sharp Univers ity of 17:47:00 [place] [facility] POCT GLUCOSE (AUTOMATED) 2022-10-29 Georgia Sharpon Univers ity of 13:45:00 [place] [facility] POCT GLUCOSE (AUTOMATED) 2022-10-29 Georgia Sharpon Univers ity of 02:03:00 [place] [facility] POCT GLUCOSE (AUTOMATED) 2022-10-28 Georgia Sharpon Univers ity of 23:28:00 [place] [facility] POCT GLUCOSE (AUTOMATED) 2022-10-28 Georgia Sharpon Univers ity of 18:24:00 [place] [facility] POCT GLUCOSE (AUTOMATED) 2022-10-28 Chel Jarvis Univers ity of 14:36:00 [facility] BASIC METABOLIC PANEL (NA, K, 2022-10-28 [facility] of CL, CO2, GLUCOSE, BUN, 10:14:00 [facility] ical CREATININE, CA) Branch CBC WITH DIFF 2022-10-28 [facility] of 10:14:00 [facility] POCT GLUCOSE (AUTOMATED) 2022-10-28 Chel Jarvis Univers ity of 02:04:00 [facility] POCT GLUCOSE (AUTOMATED) 2022-10-27 Chel, Jarvis Univers ity of 22:35:00 [facility] POCT GLUCOSE (AUTOMATED) 2022-10-27 Chel Jarvis Univers ity of 17:33:00 [facility] POCT GLUCOSE (AUTOMATED) 2022-10-27 Chel Jarvis Univers ity of 14:41:00 [facility] POCT GLUCOSE (AUTOMATED) 2022-10-27 Chel Jarvis Univers ity of 03:31:00 [facility] POCT GLUCOSE (AUTOMATED) 2022-10-26 Raul Rosen Univer sity of 22:30:00 [facility] POCT GLUCOSE (AUTOMATED) 2022-10-26 Raul Rosen Univer sity of 17:32:00 [facility] POCT GLUCOSE (AUTOMATED) 2022-10-26 Raul Rosen Univer sity of 13:26:00 [facility] BASIC METABOLIC PANEL (NA, K, 2022-10-26 [facility] CL, CO2, GLUCOSE, BUN, 11:36:00 [facility] ical CREATININE, [place]) Branch CBC WITH DIFF 2022-10-26 [facility] of 11:36:00 [facility] MAGNESIUM 2022-10-26 [facility] of 02:30:00 [facility] BASIC METABOLIC PANEL (NA, K, 2022-10-26 [facility] of CL, CO2, GLUCOSE, BUN, 02:30:00 [facility] ical CREATININE, [place]) Branch POCT GLUCOSE (AUTOMATED) 2022-10-26 Raul Rosen Univer sity of 01:48:00 [facility] POCT GLUCOSE (AUTOMATED) 2022-10-25 Raul Rosen Univer sity of 22:14:00 [facility] POCT GLUCOSE (AUTOMATED) 2022-10-25 Raul Rosen Univ sity of 17:33:00 [facility] ROSIO AURIS SURVEILLANCE BY 2022-10-25 Aleksandr Borja iversity of PCR (INFECTION CONTROL 15:47:00 [facility] [place] [facility] PURPOSES) Branch POCT GLUCOSE (AUTOMATED) 2022-10-25 Raul Rosen Univer sity of 14:25:00 [facility] POCT GLUCOSE (AUTOMATED) 2022-10-25 Raul Rosen [facility] sity of 13:36:[address] [facility] [address] ANGIOGRAM HEAD 2022-10-25 Liza Quiroz [facility] of 10:18:[address] [facility] [address] HEAD WO CONTRAST 2022-10-25 Nini Mendenhall [facility] of 10:18:30 [facility] CT ANGIOGRAM NECK 2022-10-25 Liza Quiroz [facility] of 10:18:30 [facility] BASIC METABOLIC PANEL (NA, K, 2022-10-25 Nini Mendenhall [facility] of CL, CO2, GLUCOSE, BUN, 09:42:00 [facility] CREATININE, CA) Branch CBC WITH DIFF 2022-10-25 Nini Mendenhall of 09:42:00 [facility] PROTHROMBIN TIME / INR 2022-10-25 Nini Mendenhall [facility] ty of 09:42:00 [facility] ACTIVATED PARTIAL THRMPLAS 2022-10-25 Nini Mendenhall [facility] ersity of ANUSHA 09:42:00 [facility] FIBRINOGEN 2022-10-25 [facility] 09:42:00 [facility] XR ELBOW <3 VW LEFT 2022-10-25 Liza Quiroz o f 02:12:03 [facility] XR SHOULDER <2 VW LEFT 2022-10-25 Liza Quiroz y of 02:12:03 [facility] XR WRIST 3+ VW LEFT 2022-10-25 Liza Quiroz o f 02:12:[address] [facility] [address] HEAD WO CONTRAST 2022-10-25 [facility] 01:45:02 [facility] URINE CULTURE 2022-10-25 Liza Quiroz [place] of 00:42:00 [facility] HB ECG ROUTINE & RHYTHM STRIP 2022-10-25 Liza Quiroz iversity of 00:38:10 [facility] URINALYSIS 2022-10-25 [facility] 00:32:00 [facility] LIPASE 2022-10-25 [facility] 00:12:00 [facility] MAGNESIUM 2022-10-25 Sukumarprnathalia [facility] of 00:12:00 [facility] TROPONIN I 2022-10-25 [facility] 00:12:00 [facility] COMP. METABOLIC PANEL ([id number]) 2022-10-25 Liza Quiroz iversity of 00:12:00 [facility] CBC WITH DIFF 2022-10-25 Liza Quiroz [place] of 00:12:00 [facility] PROTHROMBIN TIME / INR 2022-10-25 [facility] 00:12:00 [facility] N-TERMINAL PRO-BNP 2022-10-25 [facility] 00:12:00 [facility] EMERGENCY DEPARTMENT 2022-10-24 Doctor Unassigned, Univers ty of DOCUMENTS 06:01:00 [place] [facility] COVID-19 (ID NOW RAPID 2022-10-08 [facility] 14:58:00 [facility] COVID-19 (ID NOW RAPID 2022-10-08 Adelaide Grossman [facility] y of TESTING) 14:58:00 [facility] LAB ONLY COVID INTERPRETATION 2022-10-08 Adelaide Grossman Un iversity of 14:58:00 [facility] POCT GLUCOSE (AUTOMATED) 2022-10-08 Janice Betancourt ity [facility] 14:55:00 [facility] 2022-10-08 Janice Betancourt ity of 14:55:00 [facility] PO[facility]SE (AUTOMATED) 2022-10-08 Janice Betancourt ity of 03:51:00 [facility] POCT GLUCOSE (AUTOMATED) 2022-10-08 Bryan Univers ity of 03:51:00 [facility] POCT GLUCOSE (AUTOMATED) 2022-10-08 Janice Betancourt ity of 03:10:00 [facility] POCT GLUCOSE (AUTOMATED) 2022-10-08 Bryan Univers ity of 03:10:00 [facility] COVID-19 (ID NOW RAPID 2022-10-07 Chauncey [facility] y of TESTING) 20:42:00 [facility] LAB ONLY COVID INTERPRETATION 2022-10-07 Adelaide Grossmna Un iversity of 20:42:00 [facility] COVID-19 (ID NOW RAPID 2022-10-07 Chauncey [facility] y of TESTING) 20:42:00 [facility] LAB ONLY COVID INTERPRETATION 2022-10-07 Adelaide Grossman Un iversity of 20:42:00 [facility] HB ECG ROUTINE & RHYTHM STRIP 2022-10-07 Bryan, Un iversity of 14:09:51 [facility] HB ECG ROUTINE & RHYTHM STRIP 2022-10-07 [place], Un iversity of 14:09:51 [facility] MAGNESIUM 2022-10-07 Chauncey [facility] of 11:05:00 [facility] BASIC METABOLIC PANEL (NA, K, 2022-10-07 Adelaide Grossman Un iversity of CL, CO2, GLUCOSE, BUN, 11:05:00 [place] [facility] CREATININE, CA) Branch CBC WITH DIFF 2022-10-07 [facility] 11:05:00 [facility] MAGNESIUM 2022-10-07 Chauncey [facility] of 11:05:00 [facility] BASIC METABOLIC PANEL (NA, K, 2022-10-07 Adelaide Grossman Un iversity of CL, CO2, GLUCOSE, BUN, 11:05:00 [place] [facility] CREATININE, [place]) Branch CBC WITH DIFF 2022-10-07 Chauncey [facility] of 11:05:[address] [facility] [address] HEAD WO CONTRAST 2022-10-06 [facility] o f 21:38:[address] [facility] [address] HEAD WO CONTRAST 2022-10-06 [facility] o f 21:38:43 [facility] XR CHEST 1 VW 2022-10-06 [facility] VW 2022-10-06 [facility]:00[facility]00 [facility] CARDIAC CATHETERIZATION 2022-10-06 [place], [facility] [facility] [place] [place] of 15:30:17 [facility] ELECTROPHYSIOLOGY PROCEDURE 2022-10-06 [facility], [facility] ersity of 15:30:17 [facility] ELECTROP[facility]SIOLOG[facility] PROCEDURE 2022-10-06 [place], [facility] ersity of 15:30:17 [facility] CARDIAC CATHETERIZATION 2022-10-[address] [facility] of 15:30:17 [facility] ELECTROPHYSIOLOGY PROCEDURE 2022-10-06 [facility], [facility] ersity of 15:30:17 [facility] ELECTROPHYSIOLOGY PROCEDURE 2022-10-06 [facility], [facility] ersity of 15:30:17 [facility] CBC WITH DIFF 2022-10-03 [facility] of 17:03:00 [facility] PROTHROMBIN TIME / INR 2022-10-03 [facility] of 17:03:00 [facility] ASSIGNMENT OF BENEFITS 2022-08-03 Doctor Unassigned, Univer sity of 17:21:11 [place] [facility] EXTERNAL PROVIDER RECORDS 2022-07-07 Doctor Unassigned, Uni versity of 05:01:00 [place] [facility] POCT GLUCOSE (AUTOMATED) 2022-06-25 Acacia Del Toro [facility] ersity of 17:11:00 [facility] POCT GLUCOSE (AUTOMATED) 2022-06-25 Annie [facility] ersity of 17:11:00 [facility] POCT GLUCOSE (AUTOMATED) 2022-06-25 Annie [facility] ersity of 14:07:00 [facility] POCT GLUCOSE (AUTOMATED) 2022-06-25 Annie [facility] ersity of 14:07:00 [facility] MAGNESIUM 2022-06-25 [facility] of 10:22:00 [facility] BASIC METABOLIC PANEL (NA, K, 2022-06-25 Gita [place] Un iversity of CL, CO2, GLUCOSE, BUN, 10:22:00 [place] [facility] CREATININE, [place]) Branch CBC WITHOUT DIFF 2022-06-25 [facility] of 10:22:[address] [facility] Branch MAGNESIUM 2022-06-25 Verenicemdissa [facility] of 10:22:00 [facility] BASIC METABOLIC PANEL (NA, K, 2022-06-25 Gita [place] Un iversity of CL, CO2, GLUCOSE, BUN, 10:22:00 [place] [facility] CREATININE, CA) Branch CBC WITHOUT DIFF 2022-06-25 edwina [facility] of 10:22:00 [facility] POCT GLUCOSE (AUTOMATED) 2022-06-25 Annie [facility] ersity of 01:29:00 [facility] POCT GLUCOSE (AUTOMATED) 2022-06-25 [facility], [facility] ersity of 01:29:00 [facility] POCT GLUCOSE (AUTOMATED) 2022-06-24 [facility] ersity of 22:20:00 [facility] POCT GLUCOSE (AUTOMATED) 2022-06-24 [facility], [facility] ersity of 22:20:00 [facility] POCT GLUCOSE (AUTOMATED) 2022-06-24 [facility] ersity of 18:06:00 [facility] POCT GLUCOSE (AUTOMATED) 2022-06-24 [facility] ersity of 18:06:00 [facility] CBC WITHOUT DIFF 2022-06-24 [facility] of 17:27:00 [facility] CBC WITHOUT DIFF 2022-06-24 G[facility] of 17:27:00 [facility] MAGNESIUM 2022-06-24 Morharlan arh hospital[facility] of 17:26:00 [facility] BASIC METABOLIC PANEL (NA, K, 2022-06-24 Michelle Pelayo Un iversity of CL, CO2, GLUCOSE, BUN, 17:26:00 [place] [facility] CREATININE, [place]) Branch MAGNESIUM 2022-06-24 Gita Michelle University of 17:26:00 [facility] BASIC METABOLIC PANEL (NA, K, 2022-06-24 Michelle Pelayo Un iversity of CL, CO2, GLUCOSE, BUN, 17:26:00 [place] [facility] ical CREATININE, CA) Branch ELECTROPHYSIOLOGY PROCEDURE 2022-06-[address] [facility] ersity of 13:36:26 [facility] ELECTROPHYSIOLOGY PROCEDURE 2022-06-[address] [facility] ersity of 13:36:26 [facility] POCT GLUCOSE (AUTOMATED) 2022-06-24 [facility] ersity of 13:01:00 [facility] POCT GLUCOSE (AUTOMATED) 2022-06-24 Annie [facility] ersity of 13:01:00 [facility] POCT GLUCOSE (AUTOMATED) 2022-06-24 [place], [place] Uni versity of 03:58:00 [facility] POCT GLUCOSE (AUTOMATED) 2022-06-24 [place], [place] Uni versity of 03:58:00 [facility] URINALYSIS 2022-06-23 G[facility] of 22:59:00 [facility] URINALYSIS 2022-06-23 [facility] of 22:59:00 [facility] POCT GLUCOSE (AUTOMATED) 2022-06-23 [place], [place] Uni versity of 22:38:00 [facility] POCT GLUCOSE (AUTOMATED) 2022-06-23 [place], [place] Uni versity of 22:38:00 [facility] POCT GLUCOSE (AUTOMATED) 2022-06-23 [place], [place] Uni versity of 17:07:00 [facility] POCT GLUCOSE (AUTOMATED) 2022-06-23 [place], [place] Uni versity of 17:07:00 [facility] POCT GLUCOSE (AUTOMATED) 2022-06-23 [place], [place] Uni versity of 12:31:00 [facility] POCT GLUCOSE (AUTOMATED) 2022-06-23 Ca Meléndez Uni versity of 12:31:00 [facility] MAGNESIUM 2022-06-23 Gita [facility] of 09:22:00 [facility] BASIC METABOLIC PANEL (NA, K, 2022-06-23 Gita [place] Un iversity of CL, CO2, GLUCOSE, BUN, 09:22:00 [place] [facility] CREATININE, CA) Branch CBC WITHOUT DIFF 2022-06-23 mdissa [facility] of 09:22:00 [facility] MAGNESIUM 2022-06-23 [facility] of 09:22:00 [facility] BASIC METABOLIC PANEL (NA, K, 2022-06-23 [facility] [place] Un iversity of CL, CO2, GLUCOSE, BUN, 09:22:00 [place] [facility] CREATININE, CA) Branch CBC WITHOUT DIFF 2022-06-23 [facility] of 09:22:00 [facility] HB ECG ROUTINE & RHYTHM STRIP 2022-06-23 [facility] of 04:21:59 [facility] HB ECG ROUTINE & RHYTHM STRIP 2022-06-23 [facility] of 04:21:59 [facility] POCT GLUCOSE (AUTOMATED) 2022-06-23 Ca Meléndez Uni versity of 02:30:00 [facility] POCT GLUCOSE (AUTOMATED) 2022-06-23 Ca Meléndez Uni versity of 02:30:00 [facility] PHOSPHORUS 2022-06-22 [facility] of 22:43:00 [facility] PHOSPHORUS 2022-06-22 [facility] of 22:43:00 [facility] METANEPHRINES, PLASMA 2022-06-22 [facility] of 22:42:00 [facility] POCT GLUCOSE (AUTOMATED) 2022-06-22 Ca Meléndez Uni versity of 21:59:00 [facility] POCT GLUCOSE (AUTOMATED) 2022-06-22 Ca Meléndez Uni versity of 21:59:00 [facility] POCT GLUCOSE (AUTOMATED) 2022-06-22 [place], [place] Uni versity of 16:52:00 [facility] POCT GLUCOSE (AUTOMATED) 2022-06-22 [place], [place] Uni versity of 16:52:00 [facility] POCT GLUCOSE (AUTOMATED) 2022-06-22 [place], [place] Uni versity of 13:13:00 [facility] POCT GLUCOSE (AUTOMATED) 2022-06-22 [place], [place] Uni versity of 13:13:00 [facility] MAGNESIUM 2022-06-22 [facility] of 10:07:00 [facility] FERRITIN SERUM 2022-06-22 [facility] of 10:07:00 [facility] VITAMIN B12, LEVEL 2022-06-22 [facility] of 10:07:00 [facility] BASIC METABOLIC PANEL (NA, K, 2022-06-22 Bin Gomez Un iversity of CL, CO2, GLUCOSE, BUN, 10:07:00 [place] [facility] CREATININE, [place]) Branch IRON PANEL 2022-06-22 Patricia [facility] of 10:07:00 [facility] CBC WITH DIFF 2022-06-22 [facility] of 10:07:00 [facility] MAGNESIUM 2022-06-22 [facility] of 10:07:00 [facility] FERRITIN SERUM 2022-06-22 [facility] of 10:07:00 [facility] VITAMIN B12, LEVEL 2022-06-22 [facility] of 10:07:00 [facility] BASIC METABOLIC PANEL (NA, K, 2022-06-22 [facility] Un iversity of CL, CO2, GLUCOSE, BUN, 10:07:00 [place] [facility] CREATININE, CA) Branch IRON PANEL 2022-06-22 [facility] of 10:07:00 [facility] CBC WITH DIFF 2022-06-22 [facility] of 10:07:00 [facility] POCT GLUCOSE (AUTOMATED) 2022-06-22 Ca Meléndez Uni versity of 00:54:00 [facility] POCT GLUCOSE (AUTOMATED) 2022-06-22 [place], [place] Uni versity of 00:54:00 [facility] POCT GLUCOSE (AUTOMATED) 2022-06-21 Srinath Cohen Univers ity of 21:48:00 [facility] POCT GLUCOSE (AUTOMATED) 2022-06-21 Srinath Cohen ity of 21:48:00 [facility] HB ECG ROUTINE & RHYTHM STRIP 2022-06-21 Bin Gomez Un iversity of 19:13:25 [facility] HB ECG ROUTINE & RHYTHM STRIP 2022-06-21 Bin Gomez Un iversity of 19:13:25 [facility] TRANSTHORACIC ECHO (TTE) 2022-06-21 Bin Gomez Univers ity of COMPLETE W/ CONTRAST 16:58:45 [facility] TRANSTHORACIC ECHO (TTE) 2022-06-21 Bin Gomez Univers ity of COMPLETE W/ CONTRAST 16:58:45 [facility] POCT GLUCOSE (AUTOMATED) 2022-06-21 Srinath Cohen ity of 16:35:00 [facility] POCT GLUCOSE (AUTOMATED) 2022-06-21 Srinath Cohen ity of 16:35:00 [facility] THYROID STIMULATING HORMONE 2022-06-21 Bin Gomez Univ ersity of 12:08:00 [facility] COMP. METABOLIC PANEL ([id number]) 2022-06-21 Anastasiya Tapia [facility] of 12:08:00 [facility] CBC WITH DIFF 2022-06-21 Anastasiya Tapia [place] of 12:08:00 [facility] GLYCOSYLATED HEMOGLOBIN (A1C) 2022-06-21 Bin Gomez Un iversity of 12:08:00 [facility] THYROID STIMULATING HORMONE 2022-06-21 Bin Gomez [facility] ersity of 12:08:00 [facility] COMP. METABOLIC PANEL ([id number]) 2022-06-21 Anastasiya Tapia [facility] of 12:08:00 [facility] CBC WITH DIFF 2022-06-21 Anastasiya Tapia [facility] of 12:08:00 [facility] GLYCOSYLATED HEMOGLOBIN (A1C) 2022-06-21 Bin Gomez Un iversity of 12:08:00 [facility] COVID-19 (ID NOW RAPID 2022-06-21 Anastasiya Tapia [facility] sity of TESTING) 07:07:00 [facility] LAB ONLY COVID INTERPRETATION 2022-06-21 Anastasiya Tapia [place] of 07:07:00 [facility] COVID-19 (ID NOW RAPID 2022-06-21 Anastasiya Tapia [facility] sity of TESTING) 07:07:00 [facility] LAB ONLY COVID INTERPRETATION 2022-06-21 Anastasiya Tapia [facility] of 07:07:00 [facility] LACTIC ACID WHOLE BLOOD 2022-06-21 Srinath Cohen [facility] ty of 04:05:00 [facility] LACTIC ACID WHOLE BLOOD 2022-06-21 Singer [facility] ty of 04:05:[address] [facility] [address] HEAD WO CONTRAST 2022-06-21 Singer [facility] o f 00:42:[address] [facility] [address] HEAD WO CONTRAST 2022-06-21 Singer [facility] o f 00:42:20 [facility] ELECTROENCEPHALOGRAM 2022-06-[address] [facility] of 00:00:00 [facility] ELECTROENCEPHALOGRAM 2022-06-21 [facility] of 00:00:00 [facility] LACTIC ACID WHOLE BLOOD 2022-06-20 Srinath Cohen [facility] ty of 23:59:00 [facility] LACTIC ACID WHOLE BLOOD 2022-06-20 Singer [facility] ty of 23:59:[address] [facility] [address] ANGIOGRAM ABDOMEN/PELVIS 2022-06-20 Srinath Cohen [facility] ersity of 20:21:[address] [facility] [address] ANGIOGRAM ABDOMEN/PELVIS 2022-06-20 Singer [facility] ersity of 20:21:56 [facility] URINALYSIS 2022-06-20 Srinath Cohen [place] of 19:04:00 [facility] URINE CULTURE 2022-06-20 Srinath Cohen [place] of 19:04:00 [facility] URINALYSIS 2022-06-20 Srinath Cohen [place] of 19:04:00 [facility] URINE CULTURE 2022-06-20 Srinath Cohen of 19:04:00 [facility] XR CHEST 1 VW 2022-06-20 Srinath Cohen of 18:50:20 [facility] XR CHEST 1 VW 2022-06-20 Srinath Cohen [place] of 18:50:20 [facility] BLOOD CULTURE SCREEN 2022-06-20 Cohen, [facility] of 18:46:00 [facility] BLOOD CULTURE SCREEN 2022-06-20 Singer [facility] of 18:46:00 [facility] BLOOD CULTURE SCREEN 2022-06-20 Singer [facility] of 18:39:00 [facility] TROPONIN I 2022-06-20 [facility] of 18:39:00 [facility] COMP. METABOLIC PANEL ([id number]) 2022-06-20 Srinath Cohen iversity of 18:39:00 [facility] CBC WITH DIFF 2022-06-20 Singer [facility] of 18:39:00 [facility] BLOOD CULTURE SCREEN 2022-06-20 Singer [facility] of 18:39:00 [facility] TROPONIN I 2022-06-20 Singer [facility] of 18:39:00 [facility] COMP. METABOLIC PANEL ([id number]) 2022-06-20 Srinath Cohen iversity of 18:39:00 [facility] CBC WITH DIFF 2022-06-20 Singer [facility] of 18:39:00 [facility] EKG-12 LEAD 2022-06-20 Singer [facility] of 18:38:36 [facility] EKG-12 LEAD 2022-06-20 Singer [facility] of 18:38:36 [facility] LACTIC ACID WHOLE BLOOD 2022-06-20 Srinath Cohen Universi ty of 18:38:00 [facility] LACTIC ACID WHOLE BLOOD 2022-06-20 Srinath Cohen Universi ty of 18:38:00 [facility] EMERGENCY DEPARTMENT 2022-06-20 Doctor Unassigned, Universi ty of DOCUMENTS 05:01:00 [place] [facility] HOSPITAL ADMISSION 2022-06-20 Doctor Unassigned, University of 05:01:00 [place] [facility] ASSIGNMENT OF BENEFITS 2021-05-07 Doctor Unassigned, [facility] americoy of 21:31:03 [place] [facility] Hysterectomy [facility] Plan of Care Planned Activity Planned Date Details Comments Source Future Scheduled 2023-05-[address] [facility] 00:00:00 (Season Ended) [code = [facility] INFLUENZA VACCINE (Season Ended)] Future [...] 00:00:00 [facility] (procedure[facility] [code = 93591151] Future Scheduled 2020-09-[address] [facility] 00[facility]00[facility]00 [facility] (procedure) [code = 68707024] Future Scheduled 2020-09-[address] [facility] 00:00[facility]00 [facility] (procedure) [code = 56109132] Future Scheduled 2020-09-[address] [facility] 00:00:00 [facility] (procedure) [code = 23213313] Future Scheduled 2020-09-[address] [facility] 00:00:00 [facility] (procedure) [code = 31095318] Future Scheduled 2020-09-[address] [facility] 00:00:00 [facility] (procedure) [code = 87081952] Future Scheduled 2020-09-[address] [facility] 00:00:00 [facility] (procedure) [code = 73477563] Future Scheduled 2020-09-[address] [facility] 00:00:00 [facility] (procedure) [code = 49246032] Future Scheduled 2020-09-[address] [...] 00:00:00 (1 of 1 - Medical Center [id number] PCV13) [code = PNEUMOCOCCAL 65+ YRS (1 of 1 - [id number] PCV13)] Future Scheduled 2002 PNEUMOCOCCAL 65+ YRS [facility] Test 00:00:00 (1 of 1 - Medical Center [id number] PCV13) [code = PNEUMOCOCCAL 65+ YRS (1 of 1 - [id number] PCV13)] Future Scheduled 1999-11-11 MEDICARE ANNUAL [facility] [...] 00:00:00 protein (procedure) Medical Center [code = 503760658] Future Scheduled [address] DIABETIC EYE EXAM [facility] 00:00:00 [code = DIABETIC EYE Medical Center EXAM] Future Scheduled 1947 Urine screening for [facility] Test 00:00:00 protein (procedure) Medical Center [code = 617367061] Future Scheduled [address] EYE EXAM [facility] 00:00:00 [code = DIABETIC EYE Medical Center EXAM] Future Scheduled 1947 Urine screening for [facility] Test 00:00:00 protein (procedure) Medical Center [code = 720823998] Future Scheduled [address]ABET[address] EYE EXAM [facility] 00:00:00 [code = DIABETIC EYE Medical Center EXAM] Future Scheduled 1947 Urine screening for [facility] Test 00:00:00 protein (procedure) Medical Center [code = 066852229] Future Scheduled 1947 DIABET[address] EYE EXAM [facility] 00:00:00 [code = DIABETIC EYE Medical Center EXAM] Future Scheduled 1947 Urine screening for [facility] Test 00:00:00 protein (procedure) Medical Center [code = 275959424] Future Scheduled 1947 DIABETIC EYE EXAM [facility] 00:00:00 [code = DIABETIC EYE Medical Center EXAM] Future Scheduled 1947 Urine screening for [facility] Test 00:00:00 protein (procedure) Medical Center [code = 474274728] Future Scheduled 1947 DIABETIC EYE EXAM [facility] 00:00:00 [code = DIABETIC EYE Medical Center EXAM] Future Scheduled 1947 Urine screening for [facility] Test 00:00:00 protein (procedure) Medical Center [code = 139828780] Future Scheduled [address] DIABETIC EYE EXAM [facility] 00:00:00 [code = DIABETIC EYE Medical Center EXAM] Future Scheduled 1947 Urine screening for [facility] Test 00:00:00 protein (procedure) Medical Center [code = 982128687] Future Scheduled 1943 PNEUMOCOCCAL 65+ YRS [facility] [...] DXA [facility] 00:00:00 SCAN] [facility] Center Future Scheduled 1937 DXA SCAN [code = DXA [facility] Test 00:00:00 SCAN] [facility] Center Future Scheduled 1937 DXA SCAN [code = DXA [facility] Test 00:00:00 SCAN] [facility] Center Future Scheduled 1937 DXA SCAN [code = DXA [facility] Test 00:00:00 SCAN] [facility] Center Future Scheduled 1937 DXA SCAN [code = DXA [facility] Test 00:00:00 SCAN] [facility] Center Future Scheduled 1937 DXA SCAN [code = DXA [facility] Test 00:00:00 SCAN] [facility] Center Encounters Start End Encounter Admission Attending Care Care Encounter Source Date/Time Date/Time Type Type Clinicians Facility Department ID 2022-10-12 Outpatient [facility] [id number] [place] 11:19:01 [id number] [facility] 2020-03-24 Inpatient ER FRANCISCO JAVIER, [facility] [id number] [facility] 23:52:00 JUAQUIN Med 2022-12-22 2022-12-22 Outpatient Jordan GERARDO [facility] [id number] Univers 00:00:00 00:00:00 GILBERT storm of [facility] 2022-11-11 2022-11-11 [facility] ELIAS Martin 1.2.840.114 [id number] [facility] 07:05:00 23:59:00 Encounter Inez Wright.1.13.10 ity of BUILDING 4.2.7.2.686 Shawn as [id number] [facility] 031 Branch 2022-11-11 2022-11-11 Outpatient R MARIO [facility] ACO [id number] Univers 00:00:00 23:59:00 INEZ ity [facility] 2022-11-11 2022-11-11 Orders Doctor NEWMAN 1.2.840.114 [id number] Univers 00:00:00 00:00:00 Only Unassigned, RAYA 350.1.13.10 ity of [place] [facility] 4.2.7.2.686 Shawn as [id number] [facility] 009 Branch 2022-11-10 2022-11-10 Orders Doctor TRENT 1.2.840.114 [id number] Univers 00:00:00 00:00:00 Only Unassigned, RAYA 350.1.13.10 ity of [place] [facility] 4.2.7.2.686 Shawn as [id number] [facility] [address] [place] 2022-10-24 2022-11-01 Inpatient X [facility] [id number] Univers 17:16:00 17:33:00 [facility] 2022-10-24 2022-11-01 [facility] Liza Quiroz [id number] Univers 17:16:00 17:33:00 Encounter Raul Rosen [place] 350.1.13.10 ity of [facility] 4.2.7.2.686 [place] [id number] [facility] 098 Branch 2022-10-10 2022-10-13 Inpatient E APRYL [facility] [id number] [facility] 13:24:00 18:20:00 CASSIUS 2022-10-11 2022-10-11 Telephone Bryan [facility] 1.2.840.114 [id number] Univers 00:00:00 00:00:00 [facility] 350.1.13.10 ity of [place]2.7.2.[place] [id number] [facility] 059 Branch OFFICE BUILDING 2022-10-06 2022-10-08 Outpatient R KATE, [facility] [id number] Univers 06:20:00 13:18:00 DAYAMI ity of [facility] 2022-10-06 2022-10-08 Hospital Stanley Betancourtelginnathalia BAIRESVIKTORIA 1 .2.840.114 [id number] Univers 06:20:00 13:18:00 Encounter Dayami Love RAYA 350.1.1 3.10 ity of [facility] 4.2.7.2.686 Shawn as [id number] [facility] [address] [place] 2022-10-06 2022-10-06 Surgery VIKTORIA Betancourt 1.2.840.114 [id number] Univers 08:00:00 09:45:00 Chocksneha RAYA 350.1.13.10 ity of [facility] 4.2.7.2.686 Shawn as [id number] [facility] [address] [place] 2022-10-03 2022-10-03 Drilling Inspector Criss, Mark Lab Main [facility] 1.2.8 [id number] Univers 10:30:00 10:45:00 Visit Harini Betancourt [place] 350.1 .13.10 ity [facility] 4.2.7.2.[place] [id number] [facility] [address] [facility] 2022-10-03 2022-10-03 Outpatient R HARINI BETANCOURT [facility] [id number] Univers 10:30:00 10:30:00 HARINI BETANCOURT ity [facility] 2022-09-13 2022-09-13 Telephone VIKTORIA Betancourt 1.2.840.114 [id number] Univers 00:00:00 00:00:00 Chockalinanika RAYA 350.1.13.10 ity of [facility] 4.2.7.2.686 Shawn as [id number] [facility] [address] [place] 2022-08-08 2022-08-08 Telephone VIKTORIA Betancourt 1.2.840.114 [id number] Univers 00:00:00 00:00:00 Chockalinanika RAYA 350.1.13.10 ity of [facility] 4.2.7.2.686 Shawn as [id number] [facility] [address] [place] 2022-08-03 2022-08-03 Outpatient R HARINI BETANCOURT [facility] [id number] Univers 11:21:58 23:59:00 [facility] 2022-08-03 2022-08-03 [facility] VIKTORIA Betancourt 1.2.840.114 [id number] Univers 11:00:00 23:59:00 Encounter Maria Elena RAYA 350.1.13.10 ity of [facility] 4.2.7.2.686 Shawn as [id number] [address] 2022-08-03 2022-08-03 Orders Doctor NEWMAN 1.2.840.114 [id number] Univers 00:00:00 00:00:00 Only Unassigned, RAYA 350.1.13.10 [facility] 4.2.7.2.686 Shawn as [id number] [address] 2022-07-14 2022-07-14 Outpatient R HARINI BETANCOURT [facility] [id number] [facility] 16:30:12 23:59:00 [facility] 2022-07-14 2022-07-14 [facility] DEQUAN BetancourtNIE 1.2.840.114 [id number] [facility] 16:30:12 23:59:00 Encounter Maria Elena RAYA 350.1.13.10 ity of [facility] 4.2.7.2.686 Shawn as [id number] [place] 2[address]64 [place] 2022-07-14 2022-07-14 Telephone VIKTORIA Betancourt 1.2.840.114 [id number] Univers 00:00:00 00:00:00 Chockalinanika RAYA 350.1.13.10 ity of [facility] 4.2.7.2.686 Shawn as [phone] [place] 264564 [place] 2022-07-07 2022-07-07 Orders Doctor TRENT 1.2.840.114 [id number] Univers 00:00:00 00:00:00 Only Unassigned, RAYA 350.1.13.10 ity of [place] [facility] 4.2.7.2.686 Shawn as [phone] [facility] [address] 2022-06-27 2022-06-27 Transition ROSE Macias 1.2.840.114 [id number] Univers 00:00:00 00:00:00 of Care Jamil SHEPHERD 350.1.13.10 ity [place] [phone] [facility] [address] 2022-06-20 2022-06-25 Inpatient X CARLOTASANJAY LAUREL [facility] [id number] Univers 13:17:00 13:00:00 ACACIA ity of [facility] 2022-06-20 2022-06-25 Hospital Srinath Cohen 1.2.840.1 14 [id number] Univers 13:17:00 13:00:00 Encounter Acacia Del Toro 350.1.13. 10 ity of [facility] 4.2.7.2.686 [place] [phone] [facility] [address] 2022-06-24 2022-06-24 Surgery VIKTORIA Betancourt 1.2.840.114 [id number] Univers 08:35:00 09:20:00 Maria Elena RAYA 350.1.13.10 ity of [facility] 4.2.7.2.686 Shawn as [phone] [facility] [address] 2021-05-10 2021-05-10 Nurse Therapy, Kevin Byrd [facility] 1.2. 840.114 [id number] Univers 19:27:33 20:27:33 Visit Unknown, Attending Health 350.1.13.10 ity of [place] 4.2.7.2.686 Shawn as Terrell?Blea [phone] Ok zahraa [address] Medical Office Building 2021-05-10 2021-05-10 Outpatient R UNKNOWN, [facility] [id number] Univers 19:30:00 19:30:00 ATTENDING ity of [facility] 2021-05-09 2021-05-09 Telephone TRENT Tariq 1.2.247.083 [id number] Univers 00:00:00 00:00:00 Gessica P RAYA 350.1.13.10 ity of [facility] 4.2.7.2.686 Shawn as [id number] [address] 2021-05-07 2021-05-07 Laboratory Only, Ang Db Test [facility] 1.2.8 40.114 [id number] Univers 17:11:44 17:31:44 Only [facility] 350.1.13.10 ity [facility] 4.2.7.2.686 Shawn as Terrell?Blea [phone] [address] Medical Office Building 2021-05-07 2021-05-07 Outpatient R PAVAN [facility] [id number] Univers 17:15:00 17:15:00 [facility] 2021-05-07 2021-05-07 Outpatient R PAVAN [facility] [id number] Univers 16:20:00 [facility]:20:00 [facility] 2021-05-07 2021-05-07 Orders Doctor TRENT 1.2.840.114 [id number] Univers 00:00:00 00:00:00 Only Unassigned, RAYA 350.1.13.10 ity of [place] [facility] 4.2.7.2.686 Shawn as [id number] [address] 2018-04-03 2018-04-05 Phone nullFlavo MNA [id number] Memoria 20:41:00 04:59:59 Message r Neurosurger 07 l y [facility] 2018-03-28 2018-03-30 Phone nullFlavo MNA [id number] Memoria 15:42:00 04:59:59 Message r Neurosurger 06 l y [facility] 2018-03-26 2018-03-28 Phone nullFlavo MNA [id number] Memoria 16:02:00 04:59:59 Message r Neurosurger 05 l y [facility] 2018-03-22 2018-03-22 Ambulatory nullFlavo MNA [id number] Memoria 17:15:00 17:15:00 Pre-Reg r Neurosurger 01 l y [facility] 2018-03-19 2018-03-21 Phone nullFlavo MNA [id number] 55 Memoria 14:29:00 04:59:59 Message r Neurosurger 04 l y [facility] 2018-03-15 2018-03-17 Phone nullFlavo MNA [id number] 55 Memoria 21:01:00 04:59:59 Message r Neurosurger 03 l y [facility] 2018-03-07 2018-03-09 Phone nullFlavo MNA [id number] 55 Memoria 16:18:00 04:59:59 Message r Neurosurger 02 l y [facility] 2018-03-01 2018-03-03 Phone nullFlavo MNA [id number] 55 Memoria 16:12:00 04:59:59 Message r Neurosurger 01 l y [facility] 2018-03-01 2018-03-03 Phone nullFlavo MNA [id number] 55 Memoria 14:43:00 04:59:59 Message r Neurosurger 00 l y [facility] 2018-03-01 2018-03-01 Ambulatory nullFlavo MNA [id number] Memoria 16:15:00 16:15:00 Pre-Reg r Neurosurger 00 l y [facility] 2018-02-19 2018-02-27 Inpatient nullFlavo [facility] [id number] Memoria 07:05:00 21:19:00 [facility] 00 [facility] 2018-02-05 2018-02-13 Inpatient nullFlavo [facility] [id number] Memoria 22:15:00 16:22:00 [facility] 48 [facility] Results Test Description Test Time Test Comments Results Result Comments Source POCT GLUCOSE (AUTOMATED) 2022-11-01 17:45:48 Test Item Value Reference Range Interpretation Comme nts POCT GLU (test code = 1873581533) 377 mg/dL 70-110 H Lab Interpretation (test code = 19735-7) Abnormal [facility] GLUCOSE (AUTOMATED)2022-11-01 14:03:36 Test Item Value Reference Range Interpretation Comments POCT GLU (test code = 6187175665) 218 mg/dL 70-110 H Lab Interpretation (test code = Abnormal 63114-7) [facility] GLUCOSE (AUTOMATED)2022-11-01 02:05:30 Test Item Value Reference Range Interpretation Comments POCT GLU (test code = 4352227879) 195 mg/dL 70-110 H Lab Interpretation (test code = Abnormal 19844-9) [facility] GLUCOSE (AUTOMATED)2022-10-31 22:18:04 Test Item Value Reference Range Interpretation Comments POCT GLU (test code = 3500137632) 200 mg/dL 70-110 H Lab Interpretation (test code = Abnormal 66615-7) [facility] GLUCOSE (AUTOMATED)2022-10-31 17:40:15 Test Item Value Reference Range Interpretation Comments POCT GLU (test code = 0468685093) 231 mg/dL 70-110 H Lab Interpretation (test code = Abnormal 66638-5) [facility] GLUCOSE (AUTOMATED)2022-10-31 14:36:10 Test Item Value Reference Range Interpretation Comments POCT GLU (test code = 9291080715) 199 mg/dL 70-110 H Lab Interpretation (test code = Abnormal 28298-3) [facility] GLUCOSE (AUTOMATED)2022-10-31 03:28:00 Test Item Value Reference Range Interpretation Comments POCT GLU (test code = 6933283101) 198 mg/dL 70-110 H Lab Interpretation (test code = Abnormal 37843-0) [facility] GLUCOSE (AUTOMATED)2022-10-30 17:40:57 Test Item Value Reference Range Interpretation Comments POCT GLU (test code = 0469129731) 275 mg/dL 70-110 H Lab Interpretation (test code = Abnormal 74075-5) [facility] GLUCOSE (AUTOMATED)2022-10-30 13:56:28 Test Item Value Reference Range Interpretation Comments POCT GLU (test code = 5074910374) 191 mg/dL 70-110 H Lab Interpretation (test code = Abnormal 66738-8) [facility] WITHOUT [id number] 11:10:09 Test Item Value Reference Range Interpretation Comments WBC (test code = 6690-2) 7.95 See_Comment [A utomated message] The system [employer] generated this result transmit timur reference range : 4.30 - 11.10 10*3/?L. The reference range was not used to interpret this result as normal/abnormal . RBC (test code = 789-8) 3.22 See_Comment L [Au tomated message] The system [employer] generated this result transmit timur reference range [...] 277 See_Comment [Au tomated message] The system [employer] generated this result transmit timur reference range : 166 - 358 10*3/?L. The reference range was not used to interpret this result as normal/abnormal . MPV (test code = 8.4 fL 9.5-12.9 L 97275-4) RDW-CV (test code = 13.3 % 12.0-15.5 788-0) RDW-SD (test code = 41.0 fL 39.0-49.9 75202-2) NRBC x10^3 (test code = See_Comment [Au tomated message] 2586057550) The system [employer] generated this result transmit timur reference range : 10*3/?L. The reference range was not used to interpret this result as normal/abnormal . NRBC/100 WBC (test code 0.0 See_Comment [Au tomated message] = 2786923882) The system [employer] generated this result transmit timur reference range : 0.0 - 10.0 /100 WBC s. The reference r fernando was not used to interpret this result as normal/abnormal . IPF % (test code = 5143392277) Lab Interpretation (test Abnormal code = 30524-9) [facility] GLUCOSE (AUTOMATED)2022-10-30 02:05:21 Test Item Value Reference Range Interpretation Comments POCT GLU (test code = 7094179019) 256 mg/dL 70-110 H Lab Interpretation (test code = Abnormal 06478-8) [facility] GLUCOSE (AUTOMATED)2022-10-29 22:52:51 Test Item Value Reference Range Interpretation Comments POCT GLU (test code = 8900989063) 193 mg/dL 70-110 H Lab Interpretation (test code = Abnormal 54860-8) [facility] GLUCOSE (AUTOMATED)2022-10-29 18:00:29 Test Item Value Reference Range Interpretation Comments POCT GLU (test code = 0006142464) 328 mg/dL 70-110 H Lab Interpretation (test code = Abnormal 43463-3) [facility] GLUCOSE (AUTOMATED)2022-10-29 14:03:49 Test Item Value Reference Range Interpretation Comments POCT GLU (test code = 7973101503) 214 mg/dL 70-110 H Lab Interpretation (test code = Abnormal 72330-9) [facility] GLUCOSE (AUTOMATED)2022-10-29 02:04:31 Test Item Value Reference Range Interpretation Comments POCT GLU (test code = 240 mg/dL 70-110 H Notifi ed Provider [id number]) Lab Interpretation (test Abnormal code = 50409-9) [facility] GLUCOSE (AUTOMATED)2022-10-28 23:29:03 Test Item Value Reference Range Interpretation Comments POCT GLU (test code = 2091205341) 227 mg/dL 70-110 H Lab Interpretation (test code = Abnormal 57153-8) [facility] GLUCOSE (AUTOMATED)2022-10-28 18:26:14 Test Item Value Reference Range Interpretation Comments POCT GLU (test code = 9661247656) 241 mg/dL 70-110 H Lab Interpretation (test code = Abnormal 59338-1) [facility] GLUCOSE (AUTOMATED)2022-10-28 14:37:46 Test Item Value Reference Range Interpretation Comments POCT GLU (test code = 6939021660) 190 mg/dL 70-110 H Lab Interpretation (test code = Abnormal 04262-6) [facility] METABOLIC PANEL (NA, K, CL, CO2, GLUCOSE, BUN, CREATININE, CA)2022-10-28 11:33:48 Test Item Value Reference Range Interpretation Comments NA (test code = 128 mmol/L 135-145 L 3049834982) K (test code = 4.1 mmol/L 3.5-5.0 7472167893) CL (test code = 99 mmol/L 98-108 2828102243) CO2 TOTAL (test code = 24 mmol/L 23-31 8672313489) AGAP (test code = 5 2-16 8803265353) BUN (test code = 15 mg/dL 7-23 9506156570) GLUCOSE (test code = 169 mg/dL 70-110 H 7191692862) CREATININE (test code = 0.55 mg/dL 0.50-1.04 5840933080) CALCIUM (test code = 8.1 mg/dL 8.6-10.6 L 3028982557) eGFR (test code = 105.0 mL/min/1.73m2 2462723460) WINDY (test code = WINDY) Association of [...] tests). Lab Interpretation Abnormal (test code = 35541-9) [facility] WITH [id number] 10:48:02 Test Item Value Reference Range Interpretation Comments WBC (test code = 6.28 See_Comment [Automated 6690-2) message] The sy stem which generated this result transmitted reference range : 4.30 - 11.10 10*3/?L. The reference range was not used to interpret this result as normal/abnormal . RBC (test code = 2.94 See_Comment L [Automated 789-8) message] The sy [...] RDW-SD (test code = 40.9 fL 39.0-49.9 78086-4) RDW-CV (test code = 13.6 % 12.0-15.5 788-0) PLT (test code = 287 See_Comment [Automated 777-3) message] The sy stem which generated this result transmitted reference range : 166 - 358 10*3/ ?L. The reference r fernando was not used to interpret this result as normal/abnormal . MPV (test code = 9.3 fL 9.5-12.9 L 47214-2) NRBC/100 WBC (test 0.0 See_Comment [Automat ed code = 6293797263) message] The system which generated this result transmitted reference range : 0.0 - 10.0 /100 WBCs. The refer ence range was not u sed to interpret th is result as normal/abnormal . NRBC x10^3 (test code See_Comment [Auto mated = 3576997755) message] The s ystem which generated this result transmitted reference range : 10*3/?L. The reference range was not used to interpret this result as normal/abnormal . GRAN MAT (NEUT) % 55.1 % (test code = 770-8) IMM GRAN % (test code 0.50 % = 8019280693) LYMPH % (test code = 31.2 % 736-9) MONO % (test code = 11.6 % 5905-5) EOS % (test code = 1.4 % 713-8) BASO % (test code = 0.2 % 706-2) GRAN MAT x10^3(ANC) 3.46 10*3/uL 1.88-7.09 (test code = 6813631251) IMM GRAN x10^3 (test 0.03 10*3/uL 0.00-0.06 code = 4008022757) LYMPH x10^3 (test code 1.96 10*3/uL 1.32-3.29 = 731-0) MONO x10^3 (test code 0.73 10*3/uL 0.33-0.92 = 742-7) EOS x10^3 (test code = 0.09 10*3/uL 0.03-0.39 711-2) BASO x10^3 (test code 0.01-0.07 = 704-7) Lab Interpretation Abnormal (test code = 50073-1) [facility] GLUCOSE (AUTOMATED)2022-10-28 02:11:22 Test Item Value Reference Range Interpretation Comments POCT GLU (test code = 9801605570) 268 mg/dL 70-110 H Lab Interpretation (test code = Abnormal 26132-3) [facility] GLUCOSE (AUTOMATED)2022-10-27 22:40:13 Test Item Value Reference Range Interpretation Comments POCT GLU (test code = 6986148010) 151 mg/dL 70-110 H Lab Interpretation (test code = Abnormal 93165-8) [facility] GLUCOSE (AUTOMATED)2022-10-27 17:35:16 Test Item Value Reference Range Interpretation Comments POCT GLU (test code = 4866557053) 239 mg/dL 70-110 H Lab Interpretation (test code = Abnormal 41738-0) [facility] GLUCOSE (AUTOMATED)2022-10-27 14:42:18 Test Item Value Reference Range Interpretation Comments POCT GLU (test code = 6806269063) 221 mg/dL 70-110 H Lab Interpretation (test code = Abnormal 27802-1) [facility] GLUCOSE (AUTOMATED)2022-10-27 03:32:29 Test Item Value Reference Range Interpretation Comments POCT GLU (test code = 258 mg/dL 70-110 H Notifi ed Provider [id number]) Lab Interpretation (test Abnormal code = 25342-8) [facility] GLUCOSE (AUTOMATED)2022-10-26 22:32:49 Test Item Value Reference Range Interpretation Comments POCT GLU (test code = 176 mg/dL 70-110 H Notifi ed Provider [id number]) Lab Interpretation (test Abnormal code = 81891-0) [facility] GLUCOSE (AUTOMATED)2022-10-26 17:34:42 Test Item Value Reference Range Interpretation Comments POCT GLU (test code = 307 mg/dL 70-110 H Notifi ed Provider [id number]) Lab Interpretation (test Abnormal code = 89087-3) [facility] GLUCOSE (AUTOMATED)2022-10-26 13:30:00 Test Item Value Reference Range Interpretation Comments POCT GLU (test code = 239 mg/dL 70-110 H Notifi ed Provider [id number]) Lab Interpretation (test Abnormal code = 33618-2) [facility] GLUCOSE (AUTOMATED)2022-10-26 03:40:06 Test Item Value Reference Range Interpretation Comments POCT GLU (test code = 225 mg/dL 70-110 H Notifi ed Provider [id number]) Lab Interpretation (test Abnormal code = 91850-4) [facility] GLUCOSE (AUTOMATED)2022-10-26 01:50:16 Test Item Value Reference Range Interpretation Comments POCT GLU (test code = 3660035353) 240 mg/dL 70-110 H Lab Interpretation (test code = Abnormal 69317-3) [facility] GLUCOSE (AUTOMATED)2022-10-25 22:16:54 Test Item Value Reference Range Interpretation Comments POCT GLU (test code = 6138146355) 188 mg/dL 70-110 H Lab Interpretation (test code = Abnormal 71290-5) [facility] GLUCOSE (AUTOMATED)2022-10-25 17:34:44 Test Item Value Reference Range Interpretation Comments POCT GLU (test code = 176 mg/dL 70-110 H Notifi ed Provider [id number]) Lab Interpretation (test Abnormal code = 05789-0) [facility]22-[facility]-25 14:26:21 Test Item Value Reference Range Interpretation Comments POCT GLU (test code = 7800323944) 205 mg/dL 70-110 H Lab Interpretation (test code = Abnormal 32434-8) [facility] METABOLIC PANEL (NA, K, CL, CO2, GLUCOSE, BUN, CREATININE, CA)2022-10-25 10:29:58 Test Item Value Reference Range Interpretation Comments NA (test code = 127 mmol/L 135-145 L 9262327537) K (test code = 3.8 mmol/L 3.5-5.0 2182889612) CL (test code = 90 mmol/L 98-108 L 6478285958) CO2 TOTAL (test code = 29 mmol/L 23-31 9731692986) AGAP (test code = 8 2-16 1383923568) BUN (test code = 21 mg/dL 7-23 4341614021) GLUCOSE (test code = 203 mg/dL 70-110 H 4054242660) CREATININE (test code = 0.68 mg/dL 0.50-1.04 4970076402) CALCIUM (test code = 8.8 mg/dL 8.6-10.6 4590859299) eGFR (test code = 82.2 mL/min/1.73m2 0120932444) WINDY (test code = WINDY) Association of [...] tests). Lab Interpretation Abnormal (test code = 07390-6) [facility] 10:25:19 Test Item Value Reference Range Interpretation Comments APTT Patient (test code 63 See_Comment H [Au tomated message] = 3173-2) The system [employer] generated this result transmitted ref erence range: 26 - 36 Seconds. The reference range was not used to int erpret this result as normal/abnormal . Lab Interpretation (test Abnormal code = 75845-6) [facility]14 10:25:19 Test Item Value Reference Range Interpretation Comments Fibrinogen (test code = 5197874481) 574 mg/dL 167-453 H Lab Interpretation (test code = Abnormal 22561-6) [facility] / [id number] 10:25:18 Test Item Value Reference Range Interpretation Comments PROTIME PATIENT (test 11.9 See_Comment [Auto mated message] code = 5964-2) The system [employer] generated this result transmitted ref erence range: 10.1 - 1 2.6 Seconds. The re ference range was not u sed to interpret this result as normal/abnor mal. INR (test code = 6301-6) 1.1 Nor mal INR <1.1; Warfarin Therap eutic range 2.0 to 3. 0 or 2.5 to 3.5, dep ending upon the indica tions. Lab Interpretation (test Normal code = 10764-7) [facility] with [id number] 10:19:38 Test Item Value Reference Range Interpretation Comments WBC (test code = 9.89 See_Comment [Automated 6690-2) message] The sy stem which generated this result transmitted reference range : 4.30 - 11.10 10*3/?L. The reference range was not used to interpret this result as normal/abnormal . RBC (test code = 3.78 See_Comment L [Automated 789-8) message] The sy [...] RDW-SD (test code = 39.8 fL 39.0-49.9 02411-9) RDW-CV (test code = 13.3 % 12.0-15.5 788-0) PLT (test code = 333 See_Comment [Automated 777-3) message] The sy stem which generated this result transmitted reference range : 166 - 358 10*3/ ?L. The reference r fernando was not used to interpret this result as normal/abnormal . MPV (test code = 9.3 fL 9.5-12.9 L 28225-9) NRBC/100 WBC (test 0.0 See_Comment [Automat ed code = 7252143871) message] The system which generated this result transmitted reference range : 0.0 - 10.0 /100 WBCs. The refer ence range was not u sed to interpret th is result as normal/abnormal . NRBC x10^3 (test code See_Comment [Auto mated = 2509981979) message] The s ystem which generated this result transmitted reference range : 10*3/?L. The reference range was not used to interpret this result as normal/abnormal . GRAN MAT (NEUT) % 70.8 % (test code = 770-8) IMM GRAN % (test code 0.40 % = 8043861202) LYMPH % (test code = 18.2 % 736-9) MONO % (test code = 10.1 % 5905-5) EOS % (test code = 0.3 % 713-8) BASO % (test code = 0.2 % 706-2) GRAN MAT x10^3(ANC) 7.00 10*3/uL 1.88-7.09 (test code = 2453476373) IMM GRAN x10^3 (test 0.04 10*3/uL 0.00-0.06 code = 9875809316) LYMPH x10^3 (test code 1.80 10*3/uL 1.32-3.29 = 731-0) MONO x10^3 (test code 1.00 10*3/uL 0.33-0.92 H = 742-7) EOS x10^3 (test code = 0.03 10*3/uL 0.03-0.39 711-2) BASO x10^3 (test code 0.01-0.07 = 704-7) Lab Interpretation Abnormal (test code = 77852-7) [facility] 02:02:22 Test Item Value Reference Range Interpretation Comments MAGNESIUM (test code = 8198056935) 1.6 mg/dL 1.7-2.4 L Lab Interpretation (test code = Abnormal 41582-6) [facility] [id number] 00:49:15 Test Item Value Reference Range Interpretation Comments NT-proBNP (test code = 444 pg/mL <=450 6702072954) WINDY (test code = WINDY) Biotin has been reported to cause a negative bias, interpret results relative to patient's use of biotin. Lab Interpretation (test Normal code = 60785-3) [facility] [id number] 00:41:33 Test Item Value Reference Range Interpretation Comments TROPONIN I (test code = 0.006 ng/mL <=0.034 2011838840) WINDY (test code = WINDY) Reference (Normal) [...] biotin. Lab Interpretation Normal (test code = 26621-1) [facility]. METABOLIC PANEL (03260)2022-10-25 00:41:13 Test Item Value Reference Range Interpretation Comments NA (test code = 122 mmol/L 135-145 L 7499893735) K (test code = 4.1 mmol/L 3.5-5.0 3060765355) CL (test code = 88 mmol/L 98-108 L 1273709177) CO2 TOTAL (test code = 23 mmol/L 23-31 8662793007) AGAP (test code = 11 2-16 2879721135) BUN (test code = 25 mg/dL 7-23 H 6978850789) GLUCOSE (test code = 206 mg/dL 70-110 H 7044479569) CREATININE (test code = 0.77 mg/dL 0.50-1.04 7570073248) TOTAL BILI (test code = 0.5 mg/dL 0.1-1.9 6396979881) CALCIUM (test code = 9.0 mg/dL 8.6-10.6 8595301366) T PROTEIN (test code = 6.8 g/dL 6.3-8.2 4124033370) ALBUMIN (test code = 4.0 g/dL 3.5-5.0 1080504562) ALK PHOS (test code = 87 U/L 34-122 2252166738) ALTv (test code = 16 U/L 5-35 1742-6) AST(SGOT) (test code = 20 U/L 13-40 4953364539) eGFR (test code = 71.2 mL/min/1.73m2 4190358603) WINDY (test code = WINDY) Association of [...] tests). Lab Interpretation Abnormal (test code = 50523-7) [facility] 00:40:33 Test Item Value Reference Range Interpretation Comments LIPASE (test code = 4191632752) 39 U/L 0-220 Lab Interpretation (test code = Normal 60079-7) [facility]PROT[facility] / [id number] 00:26:52 Test Item Value Reference Range Interpretation Comments PROTIME PATIENT (test 13.1 See_Comment [Auto mated message] code = 5964-2) The system [employer] generated this result transmitted ref erence range: 12.0 - 1 4.7 Seconds. The re ference range was not u sed to interpret this result as normal/abnor mal. INR (test code = 6301-6) 1.0 Nor mal INR <1.1; Warfarin Therap eutic range 2.0 to 3. 0 or 2.5 to 3.5, dep ending upon the indica tions. Lab Interpretation (test Normal code = 46642-2) [facility] WITH [id number] 00:19:53 Test Item Value Reference Range Interpretation Comments WBC (test code = 12.65 See_Comment H [Automated 6690-2) message] The sy stem which [...] RDW-SD (test code = 39.7 fL 39.0-49.9 82336-4) RDW-CV (test code = 13.3 % 12.0-15.5 788-0) PLT (test code = 379 See_Comment H [Automated 777-3) message] The sy stem which generated this result transmitted reference range : 166 - 358 10*3/ ?L. The reference r fernando was not used to interpret this result as normal/abnormal . MPV (test code = 9.2 fL 9.5-12.9 L 74708-2) NRBC/100 WBC (test 0.0 See_Comment [Automat ed code = 7765779205) message] The system which generated this result transmitted reference range : 0.0 - 10.0 /100 WBCs. The refer ence range was not u sed to interpret th is result as normal/abnormal . NRBC x10^3 (test code See_Comment [Auto mated = 7286751160) message] The s ystem which generated this result transmitted reference range : 10*3/?L. The reference range was not used to interpret this result as normal/abnormal . GRAN MAT (NEUT) % 70.3 % (test code = 770-8) IMM GRAN % (test code 0.80 % = 9451682386) LYMPH % (test code = 18.7 % 736-9) MONO % (test code = 9.8 % 5905-5) EOS % (test code = 0.2 % 713-8) BASO % (test code = 0.2 % 706-2) GRAN MAT x10^3(ANC) 8.90 10*3/uL 1.88-7.09 H (test code = 4497825458) IMM GRAN x10^3 (test 0.10 10*3/uL 0.00-0.06 H code = 2494946955) LYMPH x10^3 (test code 2.36 10*3/uL 1.32-3.29 = 731-0) MONO x10^3 (test code 1.24 10*3/uL 0.33-0.92 H = 742-7) EOS x10^3 (test code = 0.03 10*3/uL 0.03-0.39 711-2) BASO x10^3 (test code 0.01-0.07 = 704-7) Lab Interpretation Abnormal (test code = 50101-7) [facility] GLUCOSE (AUTOMATED)2022-10-08 15:06:32 Test Item Value Reference Range Interpretation Comments POCT GLU (test code = 1004066014) 162 mg/dL 70-110 H Lab Interpretation (test code = Abnormal 13323-4) [facility] GLUCOSE (AUTOMATED)2022-10-08 15:06:32 Test Item Value Reference Range Interpretation Comments POCT GLU (test code = 5738115430) 162 mg/dL 70-110 H Lab Interpretation (test code = Abnormal 77469-2) [facility] GLUCOSE (AUTOMATED)2022-10-08 03:55:19 Test Item Value Reference Range Interpretation Comments POCT GLU (test code = 4863933629) 279 mg/dL 70-110 H Lab Interpretation (test code = Abnormal 68001-3) [facility] GLUCOSE (AUTOMATED)2022-10-08 03:55:19 Test Item Value Reference Range Interpretation Comments POCT GLU (test code = 7523696086) 279 mg/dL 70-110 H Lab Interpretation (test code = Abnormal 77435-9) [facility] GLUCOSE (AUTOMATED)2022-10-08 03:11:05 Test Item Value Reference Range Interpretation Comments POCT GLU (test code = 8588548486) 322 mg/dL 70-110 H Lab Interpretation (test code = Abnormal 02118-6) [facility] GLUCOSE (AUTOMATED)2022-10-08 03:11:05 Test Item Value Reference Range Interpretation Comments POCT GLU (test code = 7138560378) 322 mg/dL 70-110 H Lab Interpretation (test code = Abnormal 10775-4) [facility] Hospital[facility]th[facility] / [id number] 17:14:10 Test Item Value Reference Range Interpretation [...] tions. Lab Interpretation (test Normal code = 06211-3) [facility] WITH [id number] 17:07:07 Test Item Value Reference Range Interpretation Comments WBC (test code = See_Comment [Automated 9390-2) message] The sy stem which generated this result transmitted reference range : 4.30 - 11.10 10*3/?L. The reference range was not used to interpret this result as normal/abnormal . RBC (test code = See_Comment [Automated 519-8) message] The sy stem which generated this [...] RDW-SD (test code = 47.4 fL 39.0-49.9 54167-1) RDW-CV (test code = 15.6 % 12.0-15.5 H 788-0) PLT (test code = See_Comment [Automated 777-3) message] The sy stem which generated this result transmitted reference range : 166 - 358 10*3/ ?L. The reference r fernando was not used to interpret this result as normal/abnormal . MPV (test code = 9.8 fL 9.5-12.9 36461-6) NRBC/100 WBC (test See_Comment [Automat ed code = 4460726742) message] The system which generated this result transmitted reference range : 0.0 - 10.0 /100 WBCs. The refer ence range was not u sed to interpret th is result as normal/abnormal . NRBC x10^3 (test code See_Comment [Auto mated = 3718119248) message] The s ystem which generated this result transmitted reference range : 10*3/?L. The reference range was not used to interpret this result as normal/abnormal . GRAN MAT (NEUT) % 54.5 % (test code = 770-8) IMM GRAN % (test code 0.40 % = 4976561118) LYMPH % (test code = 36.8 % 736-9) MONO % (test code = 7.0 % 5905-5) EOS % (test code = 1.1 % 713-8) BASO % (test code = 0.2 % 706-2) GRAN MAT x10^3(ANC) 2.96 10*3/uL 1.88-7.09 (test code = 5592510351) IMM GRAN x10^3 (test 0.00-0.06 code = 9438748310) LYMPH x10^3 (test code 2.00 10*3/uL 1.32-3.29 = 731-0) MONO x10^3 (test code 0.38 10*3/uL 0.33-0.92 = 742-7) EOS x10^3 (test code = 0.06 10*3/uL 0.03-0.39 711-2) BASO x10^3 (test code 0.01-0.07 = 704-7) Lab Interpretation Abnormal (test code = 90359-1) [facility] HospitalMETANEPHRINES, [id number] 20:47:27 Test Item Value Reference Range Interpretation Comments METANEPH (test <0.10 0.00-0.49 code = 82846-4) NORMETNEPH (test 0.83 nmol/L 0.00-0.89 code = 93979-7) METAPF INT (test See Note INTERPRETIV E code = 92218-1) INFORMATION: Metanephrines, Plasma (Free) This nacho t [...] its perform ance characteristics determined by A [facility]. I t has not been cleared or approved by the [place] Food and Drug Administration. This test was perfor med in a CLIA certified laboratory and is intended for cl inical purposes.Perfor med By: LUCINDA Seoi [address] [place] [address] [id number] aboratory Director: Juan Espinosa MD, PhD [facility]2022-06-25 17:12:53 Test Item Value Reference Range Interpretation Comments POCT GLU (test code = 1197374915) 200 mg/dL 70-110 H Lab Interpretation (test code = Abnormal 42812-5) [facility]2022-06-25 17:12:53 Test Item Value Reference Range Interpretation Comments POCT GLU (test code = 8115822542) 200 mg/dL 70-110 H Lab Interpretation (test code = Abnormal 43103-8) [facility] GLUCOSE (AUTOMATED)2022-06-25 14:20:12 Test Item Value Reference Range Interpretation Comments POCT GLU (test code = 0819467315) 171 mg/dL 70-110 H Lab Interpretation (test code = Abnormal 03677-5) [facility]2022-06-25 14:20:12 Test Item Value Reference Range Interpretation Comments POCT GLU (test code = 9537267559) 171 mg/dL 70-110 H Lab Interpretation (test code = Abnormal 71063-2) [facility] GLUCOSE (AUTOMATED)2022-06-25 01:30:55 Test Item Value Reference Range Interpretation Comments POCT GLU (test code = 2369534799) 207 mg/dL 70-110 H Lab Interpretation (test code = Abnormal 78578-5) [facility]2022-06-25 01:30:55 Test Item Value Reference Range Interpretation Comments POCT GLU (test code = 6291948913) 207 mg/dL 70-110 H Lab Interpretation (test code = Abnormal 02894-3) [facility] 22:26:40 Test Item Value Reference Range Interpretation Comments POCT GLU (test code = 4101437573) 195 mg/dL 70-110 H Lab Interpretation (test code = Abnormal 18172-2) [facility]2022-06-24 22:26:40 Test Item Value Reference Range Interpretation Comments POCT GLU (test code = 5672608452) 195 mg/dL 70-110 H Lab Interpretation (test code = Abnormal 46693-7) [facility]2022-06-24 18:07:03 Test Item Value Reference Range Interpretation Comments POCT GLU (test code = 0054702515) 376 mg/dL 70-110 H Lab Interpretation (test code = Abnormal 46872-5) [facility] 18:07:03 Test Item Value Reference Range Interpretation Comments POCT GLU (test code = 3958700602) 376 mg/dL 70-110 H Lab Interpretation (test code = Abnormal 23491-3) [facility]2022-[facility]-14 17:45:35 Test Item Value Reference Range Interpretation Comments MAGNESIUM (test code = 5315147086) 1.9 mg/dL 1.7-2.4 Lab Interpretation (test code = Normal 04983-9) [facility] METABOLIC PANEL (NA, K, CL, CO2, GLUCOSE, BUN, CREATININE, CA)2022-06-24 17:45:35 Test Item Value Reference Range Interpretation Comments NA (test code = 137 mmol/L 135-145 0369612892) K (test code = 3.3 mmol/L 3.5-5 L 1801335694) CL (test code = 101 mmol/L 98-108 0679499235) CO2 TOTAL (test code = 25 mmol/L 23-31 7232645919) AGAP (test code = 2-16 5293741076) BUN (test code = 17 mg/dL 7-23 8157552894) GLUCOSE (test code = 264 mg/dL 70-110 H 8808469517) CREATININE (test code = 0.94 mg/dL 0.5-1.04 7705147895) CALCIUM (test code = 9.1 mg/dL 8.6-10.6 5373966447) eGFR (test code = mL/min/1.73m2 8354900988) WINDY (test code = WINDY) Association of [...] tests). Lab Interpretation Abnormal (test code = 77189-6) [facility]MAG[facility]UM2022-10-14 17:45:35 Test Item Value Reference Range Interpretation Comments MAGNESIUM (test code = 9363470648) 1.9 mg/dL 1.7-2.4 Lab Interpretation (test code = Normal 24674-9) [facility] (NA, K, CL, CO2, GLUCOSE, BUN, CREATININE, CA)2022-06-24 17:45:35 Test Item Value Reference Range Interpretation Comments NA (test code = 137 mmol/L 135-145 6579958141) K (test code = 3.3 mmol/L 3.5-5 L 9261354618) CL (test code = 101 mmol/L 98-108 5025191220) CO2 TOTAL (test code = 25 mmol/L 23-31 5256340549) AGAP (test code = 2-16 6326562844) BUN (test code = 17 mg/dL 7-23 7088008603) GLUCOSE (test code = 264 mg/dL 70-110 H 8129700139) CREATININE (test code = 0.94 mg/dL 0.5-1.04 4085535383) CALCIUM (test code = 9.1 mg/dL 8.6-10.6 2762468037) eGFR (test code = mL/min/1.73m2 9649776976) WINDY (test code = WINDY) Association of [...] tests). Lab Interpretation Abnormal (test code = 99552-2) [facility] WITHOUT [id number] 17:37:52 Test Item Value Reference Range Interpretation Comments WBC (test code = 6690-2) See_Comment [A utomated message] The system [employer] generated this result transmit timur reference range : 4.30 - 11.10 10*3/?L. The reference range was not used to interpret this result as normal/abnormal . RBC (test code = 789-8) See_Comment [Au tomated message] The system [employer] generated this result transmit timur reference range [...] 777-3) See_Comment [Au tomated message] The system [facility] generated this result transmit timur reference range : 166 - 358 10*3/?L. The reference range was not used to interpret this result as normal/abnormal . MPV (test code = 9.0 fL 9.5-12.9 L 43472-3) RDW-CV (test code = 16.6 % 12-15.5 H 788-0) RDW-SD (test code = 44.0 fL 39-49.9 62160-3) NRBC x10^3 (test code = See_Comment [Au tomated message] 6877120533) The system [employer] generated this result transmit timur reference range : 10*3/?L. The reference range was not used to interpret this result as normal/abnormal . NRBC/100 WBC (test code See_Comment [Au tomated message] = 8432561889) The system [facility] generated this result transmit timur reference range : 0.0 - 10.0 /100 WBC s. The reference r fernando was not used to interpret this result as normal/abnormal . IPF % (test code = 1265401572) Lab Interpretation (test Abnormal code = 39170-7) [facility] WITHOUT [id number] 17:37:52 Test Item Value Reference Range Interpretation Comments WBC (test code = 6690-2) See_Comment [A utomated message] The system [facility] generated this result transmit timur reference range : 4.30 - 11.10 10*3/?L. The reference range was not used to interpret this result as normal/abnormal . RBC (test code = 789-8) See_Comment [Au tomated message] The system [facility] generated this result transmit timur [...] 777-3) See_Comment [Au tomated message] The system [employer] generated this result transmit timur reference range : 166 - 358 10*3/?L. The reference range was not used to interpret this result as normal/abnormal . MPV (test code = 9.0 fL 9.5-12.9 L 10665-5) RDW-CV (test code = 16.6 % 12-15.5 H 788-0) RDW-SD (test code = 44.0 fL 39-49.9 05956-1) NRBC x10^3 (test code = See_Comment [Au tomated message] 3796884137) The system [employer] generated this result transmit timur reference range : 10*3/?L. The reference range was not used to interpret this result as normal/abnormal . NRBC/100 WBC (test code See_Comment [Au tomated message] = 4291664546) The system [employer] generated this result transmit timur reference range : 0.0 - 10.0 /100 WBC s. The reference r fernando was not used to interpret this result as normal/abnormal . IPF % (test code = 8368923007) Lab Interpretation (test Abnormal code = 27416-9) [facility] GLUCOSE (AUTOMATED)2022-06-24 13:05:03 Test Item Value Reference Range Interpretation Comments POCT GLU (test code = 6267951690) 175 mg/dL 70-110 H Lab Interpretation (test code = Abnormal 09594-2) [facility] GLUCOSE (AUTOMATED)2022-06-24 13:05:03 Test Item Value Reference Range Interpretation Comments POCT GLU (test code = 9626733408) 175 mg/dL 70-110 H Lab Interpretation (test code = Abnormal 76829-8) [facility] GLUCOSE (AUTOMATED)2022-06-24 03:59:23 Test Item Value Reference Range Interpretation Comments POCT GLU (test code = 4159488053) 200 mg/dL 70-110 H Lab Interpretation (test code = Abnormal 49443-2) [facility]2022-06-24 03:59:23 Test Item Value Reference Range Interpretation Comments POCT GLU (test code = 6870704754) 200 mg/dL 70-110 H Lab Interpretation (test code = Abnormal 93799-4) [facility]2022-06-23 22:39:44 Test Item Value Reference Range Interpretation Comments POCT GLU (test code = 9378849493) 210 mg/dL 70-110 H Lab Interpretation (test code = Abnormal 68437-2) [facility] GLUCOSE (AUTOMATED)2022-06-23 22:39:44 Test Item Value Reference Range Interpretation Comments POCT GLU (test code = 9224869588) 210 mg/dL 70-110 H Lab Interpretation (test code = Abnormal 09834-4) [facility] GLUCOSE (AUTOMATED)2022-06-23 17:10:04 Test Item Value Reference Range Interpretation Comments POCT GLU (test code = 6571587955) 189 mg/dL 70-110 H Lab Interpretation (test code = Abnormal 03292-8) [facility]2022-06-23 17:10:04 Test Item Value Reference Range Interpretation Comments POCT GLU (test code = 6436591145) 189 mg/dL 70-110 H Lab Interpretation (test code = Abnormal 14581-1) [facility] 12:33:02 Test Item Value Reference Range Interpretation Comments POCT GLU (test code = 5417898523) 193 mg/dL 70-110 H Lab Interpretation (test code = Abnormal 17964-9) [facility]2022-06-23 12:33:02 Test Item Value Reference Range Interpretation Comments POCT GLU (test code = 1679806819) 193 mg/dL 70-110 H Lab Interpretation (test code = Abnormal 06660-9) [facility] GLUCOSE (AUTOMATED)2022-06-23 02:42:00 Test Item Value Reference Range Interpretation Comments POCT GLU (test code = 8766561081) 166 mg/dL 70-110 H Lab Interpretation (test code = Abnormal 62290-8) [facility] GLUCOSE (AUTOMATED)2022-06-23 02:42:00 Test Item Value Reference Range Interpretation Comments POCT GLU (test code = 5689394676) 166 mg/dL 70-110 H Lab Interpretation (test code = Abnormal 53790-3) [facility]Phosph[facility] [id number] 23:14:43 Test Item Value Reference Range Interpretation Comments PHOSPHORUS (test code = 3.1 mg/dL 2.5-5 Slig ht hemolysis 4753168975) Lab Interpretation (test Normal code = 60391-0) [facility] [id number] 23:14:43 Test Item Value Reference Range Interpretation Comments PHOSPHORUS (test code = 3.1 mg/dL 2.5-5 Slig ht hemolysis 9313807543) Lab Interpretation (test Normal code = 53573-9) [facility] GLUCOSE (AUTOMATED)2022-06-22 22:01:14 Test Item Value Reference Range Interpretation Comments POCT GLU (test code = 1488412531) 216 mg/dL 70-110 H Lab Interpretation (test code = Abnormal 69125-2) [facility] GLUCOSE (AUTOMATED)2022-06-22 22:01:14 Test Item Value Reference Range Interpretation Comments POCT GLU (test code = 1369344706) 216 mg/dL 70-110 H Lab Interpretation (test code = Abnormal 78586-7) [facility] GLUCOSE (AUTOMATED)2022-06-22 16:56:03 Test Item Value Reference Range Interpretation Comments POCT GLU (test code = 3841655374) 170 mg/dL 70-110 H Lab Interpretation (test code = Abnormal 28642-7) [facility] GLUCOSE (AUTOMATED)2022-06-22 16:56:03 Test Item Value Reference Range Interpretation Comments POCT GLU (test code = 9779483293) 170 mg/dL 70-110 H Lab Interpretation (test code = Abnormal 62756-5) [facility] GLUCOSE (AUTOMATED)2022-06-22 13:15:17 Test Item Value Reference Range Interpretation Comments POCT GLU (test code = 0469463002) 186 mg/dL 70-110 H Lab Interpretation (test code = Abnormal 33547-2) [facility] GLUCOSE (AUTOMATED)2022-06-22 13:15:17 Test Item Value Reference Range Interpretation Comments POCT GLU (test code = 6945438447) 186 mg/dL 70-110 H Lab Interpretation (test code = Abnormal 94676-5) [facility] GLUCOSE (AUTOMATED)2022-06-22 00:55:28 Test Item Value Reference Range Interpretation Comments POCT GLU (test code = 3317670305) 201 mg/dL 70-110 H Lab Interpretation (test code = Abnormal 54143-4) [facility] GLUCOSE (AUTOMATED)2022-06-22 00:55:28 Test Item Value Reference Range Interpretation Comments POCT GLU (test code = 4937704084) 201 mg/dL 70-110 H Lab Interpretation (test code = Abnormal 79164-1) [facility]an[facility]hor[facility] echo (TTE)2022-06-21 22:48:56 Test Item Value Reference Range Interpretation Comments Height (test code = in 9360932751) Weight (test code = lbs 3912826721) Systolic BP (test code = mmHg 3011840752) Diastolic BP (test code mmHg = 2012424882) Heart Rate (test code = bpm 9271296151) LVOT stroke volume (test 79.70 cm3 code = 5121054407) EF(Teich) (test code = 56.30 % 2378657144) LVIDD (test code = 4.60 cm 9490780210) LVIDS (test code = 3.30 cm 7830301964) Left Ventricular End 43.5 mL Systolic Volume by Teichholz Method (test code = 6988784) Left Ventricular End 99.6 mL Diastolic Volume by Teichholz Method (test code = 4480897) IVS (test code = 1.19 cm 5989499163) LVPWD (test code = 1.08 cm 9064566714) LVOT diameter (test code 2.05 cm = 7598650132) LVOT area (test code = 3.30 cm2 7030760499) FS (test code = 29 % 4819598461) MV Peak E Tian (test code 84.6 cm/s = 6002121603) MV Peak A Tian (test code 110.3 cm/s = 8091347710) E/A ratio (test code = ratio 2295059553) E wave decelartion time 0.25 s (test code = 5121646756) MV E/e' septal (test 4.0 cm/s code = 5786112871) LA Volume Index (BP) 36.7 mL/m2 (test code = 7200667202) LA volume (BP) (test 65.4 mL code = 7998033758) LVOT peak tian (test code 100.1 cm/s = 2293447349) LVOT mn grad (test code mmHg = 4764729680) BSA (test code = 1.78 m2 6183789121) LA size (test code = 3.4 cm 3212801596) LAV(MOD-sp2) (test code 61.30 mL = 7628049623) LAV(MOD-sp4) (test code 58.90 mL = 1112126464) Tapse (test code = 2.48 cm 2076914336) AV LVOT peak gradient mmHg (test code = 4771533922) LVOT peak VTI (test code 24.2 cm = 9068462510) LV V1 mean (test code = 64.80 cm/s 1635701450) MV Prop V (test code = 31.70 cm/s 3420877315) Ao root diam (test code 3.40 cm = 8537528739) Aortic root (test code = 3.4 cm 6082721641) Ao root annulus (test 3.4 cm code = 3686841825) PW (test code = 1.08 cm 0.6-1.8 1710801487) EF - 2D (test code = 56.30 % 01455767) Interventricular Septum 1.19 cm Diastolic Thickness by 2D (test code = 7559996) Left Ventricular Cardiac 4.8 L/min Output (test code = 4943634) Aortic HR (test code = BPM 1114864511) Aortic valve mean 86.9 cm/s velocity (test code = 4974704314) Ao peak tian (test code = 153.7 cm/s 9733801988) Ao VTI (test code = 33.7 cm 6637494469) AV area by cont VTI 2.4 cm2 (test code = 4515024126) AV area peak tian (test 2.2 cm2 code = 6193864265) Ao max PG (test code = 9.40 mm[Hg] 1076678993) AV peak gradient (test mmHg code = 2670888301) AV valve area (test code 2.37 cm2 = 6168169083) AV mean gradient (test mmHg code = 4868927481) IVC Diam Exp(MM) (test 1.87 cm code = 2322886037) IVC Diam Ins(MM) (test 0.78 cm code = 5572417401) Radiology Study observation (narrative) (test code = 44483-9) WINDY (test code = WINDY) ?Left?Ventricle: Left [...] enhancing agent used. Patient exhibited sinus bradycardia. [facility]2022-06-21 22:48:56 Test Item Value Reference Range Interpretation Comments Height (test code = in 9360467127) Weight (test code = lbs 7584832579) Systolic BP (test code = mmHg 4914796651) Diastolic BP (test code mmHg = 8877934792) Heart Rate (test code = bpm 9571208490) LVOT stroke volume (test 79.70 cm3 code = 8672443215) EF(Teich) (test code = 56.30 % 8465188355) LVIDD (test code = 4.60 cm 0675517283) LVIDS (test code = 3.30 cm 6187797211) Left Ventricular End 43.5 mL Systolic Volume by Teichholz Method (test code = 3740221) Left Ventricular End 99.6 mL Diastolic Volume by Teichholz Method (test code = 2508852) IVS (test code = 1.19 cm 2030956659) LVPWD (test code = 1.08 cm 1147486872) LVOT diameter (test code 2.05 cm = 8538496090) LVOT area (test code = 3.30 cm2 6972608749) FS (test code = 29 % 9431650119) MV Peak E Tian (test code 84.6 cm/s = 6182058901) MV Peak A Tian (test code 110.3 cm/s = 8195737326) E/A ratio (test code = ratio 6473150778) E wave decelartion time 0.25 s (test code = 4640857571) MV E/e' septal (test 4.0 cm/s code = 3723458635) LA Volume Index (BP) 36.7 mL/m2 (test code = 1439569347) LA volume (BP) (test 65.4 mL code = 9601830487) LVOT peak tian (test code 100.1 cm/s = 3830064646) LVOT mn grad (test code mmHg = 8714306575) BSA (test code = 1.78 m2 2011154808) LA size (test code = 3.4 cm 8343661024) LAV(MOD-sp2) (test code 61.30 mL = 8454466748) LAV(MOD-sp4) (test code 58.90 mL = 2739643670) Tapse (test code = 2.48 cm 3022208059) AV LVOT peak gradient mmHg (test code = 7920344325) LVOT peak VTI (test code 24.2 cm = 2965281324) LV V1 mean (test code = 64.80 cm/s 3414356927) MV Prop V (test code = 31.70 cm/s 1416868335) Ao root diam (test code 3.40 cm = 8504664459) Aortic root (test code = 3.4 cm 1129516511) Ao root annulus (test 3.4 cm code = 9447002767) PW (test code = 1.08 cm 0.6-1.5 5751504279) EF - 2D (test code = 56.30 % 11740556) Interventricular Septum 1.19 cm Diastolic Thickness by 2D (test code = 2307707) Left Ventricular Cardiac 4.8 L/min Output (test code = 3413260) Aortic HR (test code = BPM 1692827159) Aortic valve mean 86.9 cm/s velocity (test code = 6584452748) Ao peak tian (test code = 153.7 cm/s 0193477256) Ao VTI (test code = 33.7 cm 6653503373) AV area by cont VTI 2.4 cm2 (test code = 2838655883) AV area peak tian (test 2.2 cm2 code = 5151132888) Ao max PG (test code = 9.40 mm[Hg] 2777359136) AV peak gradient (test mmHg code = 4835726557) AV valve area (test code 2.37 cm2 = 7985587967) AV mean gradient (test mmHg code = 6223097693) IVC Diam Exp(MM) (test 1.87 cm code = 9472910160) IVC Diam Ins(MM) (test 0.78 cm code = 3850415074) Radiology Study observation (narrative) (test code = 61990-0) WINDY (test code = WINDY) ?Left?Ventricle: Left [...] enhancing agent used. Patient exhibited sinus bradycardia. [facility] GLUCOSE (AUTOMATED)2022-06-21 21:50:29 Test Item Value Reference Range Interpretation Comments POCT GLU (test code = 6541167071) 181 mg/dL 70-110 H Lab Interpretation (test code = Abnormal 09040-5) [facility] GLUCOSE (AUTOMATED)2022-06-21 21:50:29 Test Item Value Reference Range Interpretation Comments POCT GLU (test code = 5802082846) 181 mg/dL 70-110 H Lab Interpretation (test code = Abnormal 39803-1) [facility] GLUCOSE (AUTOMATED)2022-06-21 20:55:06 Test Item Value Reference Range Interpretation Comments POCT GLU (test code = 8604861120) 159 mg/dL 70-110 H Lab Interpretation (test code = Abnormal 93634-7) [facility] GLUCOSE (AUTOMATED)2022-06-21 20:55:06 Test Item Value Reference Range Interpretation Comments POCT GLU (test code = 0288090548) 159 mg/dL 70-110 H Lab Interpretation (test code = Abnormal 95309-3) [facility] [id number] 11:32:00 Test Item Value Reference Range Interpretation Comments POC-GLUCOSE METER 235 mg/dL 70-110 H : TESTED A T [facility] 6720 (BEAKER) (test code = ANABELLAAL Jordan [facility], 1538) [address]: Scrap Crusher/Techni chika ID = [id number] for QUEEN LASSITER POCT-GLUCOSE [id number] 07:37:00 Test Item Value Reference Range Interpretation Comments POC-GLUCOSE METER 190 mg/dL 70-110 H : TESTED A T [facility] 67[address] (BEAKER) (test code = DINA Ortega [facility], 1538) 01888: Scrap Crusher/Techni chika ID = [id number] for QUEEN LASSITER CBC W/PLT COUNT & AUTO [id number] 06:10:00 Test Item Value Reference Range Interpretation [...] PERCENT (BEAKER) (test code = 2801) POCT-GLUCOSE [id number] 22:16:00 Test Item Value Reference Range Interpretation Comments POC-GLUCOSE METER 275 mg/dL 70-110 H : TESTED A T [facility] 6720 (BEAKER) (test code = [facility], 153) 38360: Scrap Crusher/Techni chika ID = [id number] for DI [place], ISSAIRIS POCT-GLUCOSE [id number] 16:44:00 Test Item Value Reference Range Interpretation Comments POC-GLUCOSE METER 200 mg/dL 70-110 H : TESTED A T [facility] 6720 (BEAKER) (test code = [facility], 153) 26779: Scrap Crusher/Techni chika ID = [id number] for [place] QUEEN SIBLEY POCT-GLUCOSE [id number] 12:11:00 Test Item Value Reference Range Interpretation Comments POC-GLUCOSE METER 180 mg/dL 70-110 H : TESTED A T [facility] 6720 (BEAKER) (test code = [facility], 153) 80195: Scrap Crusher/Techni chika ID = [id number] for NW AJIAKU, SHAYY POCT-GLUCOSE [id number] 08:17:00 Test Item Value Reference Range Interpretation Comments POC-GLUCOSE METER 158 mg/dL 70-110 H : TESTED A T [facility] 6720 (BEAKER) (test code = [place], 1538) 48[address]: Scrap Crusher/Techni chika ID = [id number] for SHAYY ALBRIGHT CBC W/PLT COUNT & AUTO [id number] 04:14:00 Test Item Value Reference Range Interpretation [...] PERCENT (BEAKER) (test code = 2801) POCT-GLUCOSE [id number] 16:12:00 Test Item Value Reference Range Interpretation Comments POC-GLUCOSE METER 233 mg/dL 70-110 H : TESTED A T [facility] 6720 (BEAKER) (test code = [facility], 1538) 65253: Scrap Crusher/Techni chika ID = [id number] for SHAYY ALBRIGHT POCT-GLUCOSE [id number] 12:02:00 Test Item Value Reference Range Interpretation Comments POC-GLUCOSE METER 190 mg/dL 70-110 H : TESTED A T [facility] 6720 (BEAKER) (test code = [facility], 1538) 22111: Scrap Crusher/Techni chika ID = [id number] for SHAYY ALBRIGHT STOOL CULTURE + SHIGA [id number] 09:19:00 Test Item Value Reference Range Interpretation Comments CULTURE (BEAKER) No Salmonella, Shigella (test code = 1095) or Campylobacter isolated POCT-GLUCOSE [id number] 07:46:00 Test Item Value Reference Range Interpretation Comments POC-GLUCOSE METER 174 mg/dL 70-110 H : TESTED A T [facility] 6720 (BEAKER) (test code = [facility], 1538) 62002: Scrap Crusher/Techni chika ID = [id number] for SHAYY ALBRIGHT CBC W/PLT COUNT & AUTO [id number] 06:53:00 Test Item Value Reference Range Interpretation [...] 0-1 PERCENT (BEAKER) (test code = 2801) [id number] 06:20:00 Test Item Value Reference Range Interpretation Comments MAGNESIUM (BEAKER) 1.7 mg/dL 1.6-2.6 Specimen slightly (test code = 627) hemolyzed Scrap Crusher ID - LATA WBASIC METABOLIC [id number] 06:20:00 Test Item Value Reference Range Interpretation [...] S NOT APPLICABLE FOR DIALYSIS PATIEN TS. Scrap Crusher ID Suman GUIDO WHEPATIC FUNCTION [id number] 06:20:00 Test Item Value Reference Range Interpretation [...] Specimen slightly (test code = 347) hemolyzed Scrap Crusher JAIME GUIDO WPOCT-GLUCOSE [id number] 21:46:00 Test Item Value Reference Range Interpretation Comments POC-GLUCOSE METER 181 mg/dL 70-110 H : TESTED A T [facility] 6720 (CALI) (test code = DINA Ortega [facility], 1538) 22112: Scrap Crusher/Techni chika ID = [id number] for JEREMY GUPTA CT, BRAIN, WITHOUT [id number] 18:11:00FINAL REPORT CT, BRAIN, WITHOUT CONTRAST INDICATION: [...] Annmarie Burch Verified Date/Time: 03/26/2020 18:11:57 POCT-GLUCOSE [id number] 17:31:00 Test Item Value Reference Range Interpretation Comments POC-GLUCOSE METER 209 mg/dL 70-110 H : Notified RN/MD: (CALI) (test code = TESTED AT [facility] 6720 1538) [facility], [address]: Scrap Crusher/Techni chika ID = [id number] for MEERA LEMOSA TOXIN [id number] 15:19:00 Test Item Value Reference Range Interpretation Comments SHIGA TOXIN 1 (BEAKER) (test Not detected Not detected code = 2177) SHIGA TOXIN 2 (BEAKER) (test Not detected Not detected code = 2179) POCT-GLUCOSE [id number] 11:53:00 Test Item Value Reference Range Interpretation Comments POC-GLUCOSE METER 159 mg/dL 70-110 H : TESTED A T [facility] 6720 (BEAKER) (test code = [place], 1538) 324[address]: Scrap Crusher/Techni chika ID = [id number] for SANDRA HOLLIS STOOL PATH [id number] 11:36:00 Test Item Value Reference Range Interpretation Comments PATHOGEN EXAM CHARGED (BEAKER) (test Done code = 2381) POCT-GLUCOSE [id number] 07:11:00 Test Item Value Reference Range Interpretation Comments POC-GLUCOSE METER 146 mg/dL 70-110 H : TESTED A T [facility] 6720 (BEAKER) (test code = [place], 1538) 957[address]: Scrap Crusher/Techni chika ID = [id number] for MILY GROVE [id number] 06:04:00 Test Item Value Reference Range Interpretation Comments MAGNESIUM (BEAKER) (test code = 1.9 mg/dL 1.6-2.6 627) Scrap Crusher ID - PIAYA LBASIC METABOLIC [id number] 06:04:00 Test Item Value Reference Range Interpretation [...] S NOT APPLICABLE FOR DIALYSIS PATIEN TS. Scrap Crusher ID - PIAYA LHEPATIC FUNCTION [id number] 06:04:00 Test Item Value Reference Range Interpretation [...] (test code = 15 U/L 6-55 347) Scrap Crusher ID - PITYREE LCBC W/PLT COUNT & AUTO [id number] 05:20:00 Test Item Value Reference Range Interpretation [...] PERCENT (BEAKER) (test code = 2801) POCT-GLUCOSE [id number] 21:12:00 Test Item Value Reference Range Interpretation Comments POC-GLUCOSE METER 154 mg/dL 70-110 H : TESTED A T [facility] 6720 (BEAKER) (test code = [facility], 153) 51555: Scrap Crusher/Techni chika ID = [id number] for ALPHONSO GUPTAU POCT-GLUCOSE [id number] 17:43:00 Test Item Value Reference Range Interpretation Comments POC-GLUCOSE METER 152 mg/dL 70-110 H : TESTED A T [facility] 6720 (BEAKER) (test code = [facility] [employer] [facility], 153) 38753: Scrap Crusher/Techni chika ID = [id number] for [place] LLIS, PANCHO SARS-COV2/RT-PCR ([facility])2020-03-25 13:40:00 Test Item Value Reference Range Interpretation Comments SARS-COV2/RT-PCR (test code = Negative Not Detected, Negative 9436823) SARS-COV-2 PERFORMING LAB [facility] (test code = 0038188) Negative result for this test determines that [...] of the Act.Fact Sheet for Healthcare Prov iders:https://www.[employer]/sites/default/files/product/documents/Fact_Sheet_HC _Pwnslpfyz_Lxzi_USTC-LsN-2.pdfFact Sheet for Healthcare Patients:https://www.[employer]apt[employer]/sites/default/files/product/docume nts/Mvdd_Qfsbv_Viphlyma_Aycu_RDGU-CoI-4.pdfPerforming Laboratory:[facility] [place], [place] [address], [place] [address]VACJ-SYHPETQ METER 2020-03-25 11:24:00 Test Item Value Reference Range Interpretation Comments POC-GLUCOSE METER 165 mg/dL 70-110 H : TESTED A T [facility] 6720 (BEAKER) (test code = D[place], 1538) 87248: Scrap Crusher/Techni chika ID = [id number] for SANDRA HOLLIS TSH/FREE T4 IF [id number] 10:59:00 Test Item Value Reference Range Interpretation Comments THYROID STIMULATING HORMONE 0.622 uIU/mL 0.350-4.940 (BEAKER) (test code = 772) Scrap Crusher ID - WAGNER LHEMOGLOBIN [id number] 10:59:00 Test Item Value Reference Range Interpretation Comments HEMOGLOBIN A1C (BEAKER) (test code = 6.9 % 4.3-6.1 H 368) TROPONIN [id number] 10:50:00 Test Item Value Reference Range Interpretation [...] failure, acidosis, acute neurological disease, and persistent tachyarrhythmia.Scrap Crusher ID - WAGNER LBASIC METABOLIC [id number] 10:42:00 Test Item Value Reference Range Interpretation [...] S NOT APPLICABLE FOR DIALYSIS PATIEN TS. Scrap Crusher ID - WAGNER EPATIC FUNCTION [id number] 10:42:00 Test Item Value Reference Range Interpretation [...] (test code = 10 U/L 6-55 347) Scrap Crusher ID - WAGNER [id number] 10:41:00 Test Item Value Reference Range Interpretation Comments PHOSPHORUS (BEAKER) (test code = 3.2 mg/dL 2.3-4.7 604) Scrap Crusher ID - WAGNER [id number] 10:41:00 Test Item Value Reference Range Interpretation Comments MAGNESIUM (BEAKER) (test code = 2.0 mg/dL 1.6-2.6 627) Scrap Crusher ID - WAGNER LPOCT-GLUCOSE [id number] 09:10:00 Test Item Value Reference Range Interpretation Comments POC-GLUCOSE METER 116 mg/dL 70-110 H : TESTED A T [facility] 6720 (BEAKER) (test code = [place], 1538) 48507: Scrap Crusher/Techni chika ID = [id number] for LANCE TRACEY RAD, CHEST, 1 VIEW, NON [id number] 07:49:00Reason for exam:->chest painShould this be performed at the bedside?->YesFINAL REPORT CLINICAL HISTORY: chest pain TECHNIQUE: 1 view of the chest. COMPAR NIEVES: None IMPRESSION: There are linear bandlike opacities in the bilateral mid and lower lungs. There are no significant effusions. The cardiomediastinal silhouette is magnified by technique. Signed: Ketuarh Mensah MDReport Verified Date/Time: 03/25/2020 07:49:59 [facility] C. DIFFICILE GDH [id number] 06:54:00 Test Item Value Reference Range Interpretation Comments CDT TOXIN (test code Negative Negative = [id number]) CDT GDH ANTIGEN (test Negative Negative No ind ication of code = [id number]) Clostridi um difficile infection and n o colonization. Discontinue ent perez isolation and t herapy. Testing performed by [employer] Rapid Cassette Assay. For GDH, published sensitivity of the assay is 98.7% compared to cytotoxicity testing. For Toxin AB, published sensitivity is 87.8% and specificity 99.4% compared to cytotoxicity testing.Verification of kit performance was done by the [facility] MicrobiologyLab prior to clinical use.URINALYSIS WITH MICROSCOPIC IF [id number] 06:35:00 Test Item Value Reference Range Interpretation [...] = 463) SOURCE(BEAKER) (test code = 2795) Scrap Crusher ID - [auto]Scrap Crusher ID - techURINALYSIS [id number] 06:35:00 Test Item Value Reference Range Interpretation Comments RBC UA (BEAKER) (test code = 519) 3 /HPF WBC UA (BEAKER) (test code = 520) 11 /HPF BACTERIA (BEAKER) (test code = 517) Rare SQUAMOUS EPITHELIAL (BEAKER) (test 1 /HPF code = 516) Scrap Crusher ID - techPOCT-GLUCOSE [id number] 05:08:00 Test Item Value Reference Range Interpretation Comments POC-GLUCOSE METER 128 mg/dL 70-110 H : TESTED A T [facility] 6720 (BEAKER) (test code = DINA Ortega [place], 1538) 25865: Scrap Crusher/Techni chika ID = [id number] for As Meena beckett CHEM [id number] 12:00:00 Test Item Value Reference Range Interpretation Comments eGFR (test code = eGFR) 86 [facility] [employer] [id number] 12:00:00 Test Item Value Reference Range Interpretation Comments AGAP (test code = AGAP) 9.5 10.0-20.0 [facility] [employer] [id number] 12:00:00 Test Item Value Reference Range Interpretation Comments CO2 (test code = CO2) 33 24-32 [facility] [employer] [id number] 12:00:00 Test Item Value Reference Range Interpretation Comments Calcium Lvl (test code = Calcium Lvl) 8.7 8.5-10.5 [facility] [employer] [id number] 12:00:00 Test Item Value Reference Range Interpretation Comments Glucose Lvl (test code = Glucose Lvl) 201 70-99 [facility] [employer] [id number] 12:00:00 Test Item Value Reference Range Interpretation Comments BUN (test code = BUN) 19 7-22 [facility] [employer] [id number] 12:00:00 Test Item Value Reference Range Interpretation Comments Creatinine Lvl (test code = Creatinine 0.61 0.50-1.40 Lvl) [facility] [employer] [id number] 12:00:00 Test Item Value Reference Range Interpretation Comments Sodium Lvl (test code = Sodium Lvl) 127 135-145 [facility] [employer] [id number] 12:00:00 Test Item Value Reference Range Interpretation Comments Chloride Lvl (test code = Chloride Lvl) 89 95-109 [facility]2018-06-19 12:00:00 Test Item Value Reference Range Interpretation Comments Potassium Lvl (test code = Potassium 4.5 3.5-5.1 Lvl) [facility]2018-06-18 08:31:00 Test Item Value Reference Range Interpretation Comments eGFR (test code = eGFR) 86 [facility]2018-06-18 08:31:00 Test Item Value Reference Range Interpretation Comments BUN (test code = BUN) 18 7-22 [facility]2018-06-18 08:31:00 Test Item Value Reference Range Interpretation Comments Glucose Lvl (test code = Glucose Lvl) 181 70-99 [facility]2018-06-18 08:31:00 Test Item Value Reference Range Interpretation Comments Creatinine Lvl (test code = Creatinine 0.61 0.50-1.40 Lvl) [facility]2018-06-18 08:31:00 Test Item Value Reference Range Interpretation Comments Calcium Lvl (test code = Calcium Lvl) 8.5 8.5-10.5 [facility]2018-06-18 08:31:00 Test Item Value Reference Range Interpretation Comments CO2 (test code = CO2) 34 24-32 [facility]2018-06-18 08:31:00 Test Item Value Reference Range Interpretation Comments Chloride Lvl (test code = Chloride Lvl) 88 95-109 [facility]2018-06-18 08:31:00 Test Item Value Reference Range Interpretation Comments Potassium Lvl (test code = Potassium 4.3 3.5-5.1 Lvl) [facility]2018-06-18 08:31:00 Test Item Value Reference Range Interpretation Comments Sodium Lvl (test code = Sodium Lvl) 131 135-145 [facility]2018-06-18 08:31:00 Test Item Value Reference Range Interpretation Comments AGAP (test code = AGAP) 13.3 10.0-20.0 [facility] [id number] 08:31:00 Test Item Value Reference Range Interpretation Comments Hgb (test code = Hgb) 9.4 12.0-16.0 [facility] [id number] 08:31:00 Test Item Value Reference Range Interpretation Comments RBC (test code = RBC) 3.38 4.20-5.40 [facility] Wor[id number] 08:31:00 Test Item Value Reference Range Interpretation Comments WBC (test code = WBC) 8.8 3.7-10.4 [facility] Fort [id number] 08:31:00 Test Item Value Reference Range Interpretation Comments Hct (test code = Hct) 27.7 36.0-48.0 [facility] WorthJkgtkqlPARHJTKCUF0097-02-37 08:31:00 Test Item Value Reference Range Interpretation Comments MPV (test code = MPV) 8.5 7.4-10.4 [facility] Fort [id number] 08:31:00 Test Item Value Reference Range Interpretation Comments Platelet (test code = Platelet) 213 133-450 [facility] [id number] 08:31:00 Test Item Value Reference Range Interpretation Comments RDW (test code = RDW) 15.1 11.5-14.5 [facility] WorthFzbkpbmLICZSTTZBD8047-54-23 08:31:00 Test Item Value Reference Range Interpretation Comments MCHC (test code = MCHC) 34.0 32.0-36.0 [facility] Fort Wor[id number] 08:31:00 Test Item Value Reference Range Interpretation Comments MCH (test code = MCH) 27.8 pg 27.0-31.0 [facility] WorthRskqbviUZXFYHSKWL6212-93-69 08:31:00 Test Item Value Reference Range Interpretation Comments MCV (test code = MCV) 81.8 80.0-98.0 [facility] WorthIrjwwtkAPNJLNJUVA6176-68-05 08:31:00 Test Item Value Reference Range Interpretation Comments Lymphocytes (test code = Lymphocytes) 11.3 20.0-40.0 [facility] WorthElgjuzsQQLJMJQXNV7480-84-07 08:31:00 Test Item Value Reference Range Interpretation Comments Segs (test code = Segs) 81.3 45.0-75.0 [facility] Fort [id number] 08:31:00 Test Item Value Reference Range Interpretation Comments Basophils (test code = 0.3 See_Comment [Aut omated message] The Basophils) system which ge nerated this result tra nsmitted reference range : <=1.0. The reference r fernando was not used to int erpret this result as normal/abnormal . [facility] WorthKwvmjudFMMFQVKJVH1210-04-91 08:31:00 Test Item Value Reference Range Interpretation Comments Eosinophils (test code = 2.2 See_Comment [A utomated message] The Eosinophils) system which ge nerated this result tra nsmitted reference range : <=4.0. The reference r fernando was not used to int erpret this result as normal/abnormal . [facility] Wor[id number] 08:31:00 Test Item Value Reference Range Interpretation Comments Monocytes (test code = Monocytes) 4.9 2.0-12.0 [facility] Wor[id number] 08:31:00 Test Item Value Reference Range Interpretation Comments Lymphocytes # (test code = Lymphocytes 1.0 1.0-5.5 #) [facility] WorthArrynkbKQLZBAOCIV2522-42-85 08:31:00 Test Item Value Reference Range Interpretation Comments Segs-Bands # (test code = Segs-Bands #) 7.2 1.5-8.1 [facility] WorthShocwznNFHXCURVPA7001-94-84 08:31:00 Test Item Value Reference Range Interpretation Comments Eosinophils # (test code 0.2 See_Comment [A utomated message] The = Eosinophils #) system whic h generated this result tra nsmitted reference range : <=0.5. The reference r fernando was not used to int erpret this result as normal/abnormal . [facility] [id number] 08:31:00 Test Item Value Reference Range Interpretation Comments Monocytes # (test code 0.4 See_Comment [Aut omated message] The = Monocytes #) system which generated this result tra nsmitted reference range : <=0.8. The reference r fernando was not used to int erpret this result as normal/abnormal . [facility] [id number] 06:00:00 Test Item Value Reference Range Interpretation Comments BNP (test code = BNP) 188 [facility] HermannCHEM [id number] 06:00:00 Test Item Value Reference Range Interpretation Comments Phosphorus (test code = Phosphorus) 2.7 2.5-4.5 [facility] [id number] 06:00:00 Test Item Value Reference Range Interpretation Comments Calcium Lvl (test code = Calcium Lvl) 8.8 8.5-10.5 [facility]2018-06-17 06:00:00 Test Item Value Reference Range Interpretation Comments Chloride Lvl (test code = Chloride Lvl) 84 95-109 [facility]2018-06-17 06:00:00 Test Item Value Reference Range Interpretation Comments AGAP (test code = AGAP) 12.4 10.0-20.0 [facility]2018-06-17 06:00:00 Test Item Value Reference Range Interpretation Comments CO2 (test code = CO2) 37 24-32 [facility]2018-06-17 06:00:00 Test Item Value Reference Range Interpretation Comments eGFR (test code = eGFR) 88 [facility]2018-06-17 06:00:00 Test Item Value Reference Range Interpretation Comments Glucose Lvl (test code = Glucose Lvl) 146 70-99 [facility]2018-06-17 06:00:00 Test Item Value Reference Range Interpretation Comments BUN (test code = BUN) 13 7-22 [facility]2018-06-17 06:00:00 Test Item Value Reference Range Interpretation Comments Creatinine Lvl (test code = Creatinine 0.57 0.50-1.40 Lvl) [facility]2018-06-17 06:00:00 Test Item Value Reference Range Interpretation Comments Sodium Lvl (test code = Sodium Lvl) 130 135-145 [facility]2018-06-17 06:00:00 Test Item Value Reference Range Interpretation Comments Potassium Lvl (test code = Potassium 3.4 3.5-5.1 Lvl) [facility]2018-06-17 06:00:00 Test Item Value Reference Range Interpretation Comments Magnesium Lvl (test code = Magnesium 2.0 1.8-2.4 Lvl) [facility]2018-06-16 15:56:00 Test Item Value Reference Range Interpretation Comments U Osmolality (test code = U Osmolality) 311 300-800 [facility]2018-06-16 15:56:00 Test Item Value Reference Range Interpretation Comments U Creatinine (test code = U Creatinine) 10.70 [facility]2018-06-16 15:56:00 Test Item Value Reference Range Interpretation Comments U Sodium (test code = U Sodium) 84 [facility]2018-06-16 15:56:00 Test Item Value Reference Range Interpretation Comments U Potassium (test code = U Potassium) 42.2 [facility] [id number] 15:56:00 Test Item Value Reference Range Interpretation Comments U Chloride (test code = U Chloride) 118 [facility] [id number] 05:11:00 Test Item Value Reference Range Interpretation Comments Osmolality (test code = Osmolality) 269 280-300 [facility] [id number] 05:11:00 Test Item Value Reference Range Interpretation Comments Magnesium Lvl (test code = Magnesium 1.6 1.8-2.4 Lvl) [facility] [id number] 05:11:00 Test Item Value Reference Range Interpretation Comments Phosphorus (test code = Phosphorus) 2.3 2.5-4.5 [facility]QpmunmdXDBEACSFIO2632-16-42 05:11:00 Test Item Value Reference Range Interpretation Comments Segs-Bands # (test code = Segs-Bands #) 6.2 1.5-8.1 [facility] HealthTamsbgoYAZZLSLJFC5564-34-71 05:11:00 Test Item Value Reference Range Interpretation Comments Lymphocytes # (test code = Lymphocytes 1.1 1.0-5.5 #) [facility] WorthKyyohctJXVFWPLCAS8342-07-51 05:11:00 Test Item Value Reference Range Interpretation Comments Basophils (test code = 0.2 See_Comment [Aut omated message] The Basophils) system which ge nerated this result tra nsmitted reference range : <=1.0. The reference r fernando was not used to int erpret this result as normal/abnormal . [facility] WorthTxusklhCBATMSKLKV8888-79-11 05:11:00 Test Item Value Reference Range Interpretation Comments Eosinophils (test code = 2.3 See_Comment [A utomated message] The Eosinophils) system which ge nerated this result tra nsmitted reference range : <=4.0. The reference r fernando was not used to int erpret this result as normal/abnormal . [facility] WorthCluubooFDXHOAENUK2170-38-97 05:11:00 Test Item Value Reference Range Interpretation Comments Monocytes (test code = Monocytes) 8.1 2.0-12.0 [facility] HealthJnppxxyQCKSNCXONC2084-44-08 05:11:00 Test Item Value Reference Range Interpretation Comments Lymphocytes (test code = Lymphocytes) 13.8 20.0-40.0 [facility] WorthTlxeucxXOTAHBUVVQ3450-03-05 05:11:00 Test Item Value Reference Range Interpretation Comments Segs (test code = Segs) 75.6 45.0-75.0 [facility] Fort WorthYdezanoNIDFCHUZOE7830-83-38 05:11:00 Test Item Value Reference Range Interpretation Comments Eosinophils # (test code 0.2 See_Comment [A utomated message] The = Eosinophils #) system whic h generated this result tra nsmitted reference range : <=0.5. The reference r fernando was not used to int erpret this result as normal/abnormal . [facility] WorthQoradlgDHAYBOOJVF6795-85-56 05:11:00 Test Item Value Reference Range Interpretation Comments Monocytes # (test code 0.7 See_Comment [Aut omated message] The = Monocytes #) system which generated this result tra nsmitted reference range : <=0.8. The reference r fernando was not used to int erpret this result as normal/abnormal . [facility] WorthUsxkfykYHDHLQOHBJ0829-63-72 05:11:00 Test Item Value Reference Range Interpretation Comments Platelet (test code = Platelet) 185 133-450 [facility] Fort WorthHkolacnXQMBVOUKMX9819-80-65 05:11:00 Test Item Value Reference Range Interpretation Comments RDW (test code = RDW) 15.0 11.5-14.5 [facility] WorthCionqhyWTXGIPGAMZ5112-87-02 05:11:00 Test Item Value Reference Range Interpretation Comments MCHC (test code = MCHC) 34.1 32.0-36.0 [facility] Fort WorthLfkwhbtEUAIUXURTW7629-35-06 05:11:00 Test Item Value Reference Range Interpretation Comments MPV (test code = MPV) 8.2 7.4-10.4 [facility] WorthBlezpjwVNGDIBLAGO4631-09-33 05:11:00 Test Item Value Reference Range Interpretation Comments MCV (test code = MCV) 81.1 80.0-98.0 [facility] WorthWrtidvxVFZGBIIUER2136-36-58 05:11:00 Test Item Value Reference Range Interpretation Comments MCH (test code = MCH) 27.7 pg 27.0-31.0 [facility] [id number] 05:11:00 Test Item Value Reference Range Interpretation Comments RBC (test code = RBC) 3.46 4.20-5.40 [facility] WorthTwiasapEDSHVHOUQS3646-87-30 05:11:00 Test Item Value Reference Range Interpretation Comments Hct (test code = Hct) 28.1 36.0-48.0 [facility] WorthOpeomvbEEQOEHPEAL6329-73-51 05:11:00 Test Item Value Reference Range Interpretation Comments Hgb (test code = Hgb) 9.6 12.0-16.0 [facility] WorthNiumwmpYRTUFMQXZO7696-09-38 05:11:00 Test Item Value Reference Range Interpretation Comments WBC (test code = WBC) 8.2 3.7-10.4 [facility]2018-06-16 05:11:00 Test Item Value Reference Range Interpretation Comments Ca Ion WB (test code = Ca Ion WB) 1.05 1.05-1.25 [facility]2018-06-16 05:11:00 Test Item Value Reference Range Interpretation Comments Ca Norm WB (test code = Ca Norm WB) 1.12 1.05-1.25 [facility] WorthOcijitgCWNAGFJRSO7138-27-91 05:37:00 Test Item Value Reference Range Interpretation Comments Segs (test code = Segs) 84.3 45.0-75.0 [facility] WorthNvfynofBLWCASSPGU1804-27-11 05:37:00 Test Item Value Reference Range Interpretation Comments Lymphocytes (test code = Lymphocytes) 7.4 20.0-40.0 [facility] WorthYeqykpdEVDNHHWDIH4498-50-74 05:37:00 Test Item Value Reference Range Interpretation Comments Eosinophils # (test code 0.1 See_Comment [A utomated message] The = Eosinophils #) system whic h generated this result tra nsmitted reference range : <=0.5. The reference r fernando was not used to int erpret this result as normal/abnormal . [facility] WorthVxhnzlgFFIAXUPZIB2485-02-95 05:37:00 Test Item Value Reference Range Interpretation Comments Lymphocytes # (test code = Lymphocytes 0.6 1.0-5.5 #) [facility] WorthXsmkfbbJCJMWFUTSM3279-58-03 05:37:00 Test Item Value Reference Range Interpretation Comments Monocytes # (test code 0.5 See_Comment [Aut omated message] The = Monocytes #) system which generated this result tra nsmitted reference range : <=0.8. The reference r fernando was not used to int erpret this result as normal/abnormal . [facility] WorthRscvclqXMFTCFXGDX0168-85-08 05:37:00 Test Item Value Reference Range Interpretation Comments Monocytes (test code = Monocytes) 6.7 2.0-12.0 [facility] [id number] 05:37:00 Test Item Value Reference Range Interpretation Comments Eosinophils (test code = 1.4 See_Comment [A utomated message] The Eosinophils) system which ge nerated this result tra nsmitted reference range : <=4.0. The reference r fernando was not used to int erpret this result as normal/abnormal . [facility] [id number] 05:37:00 Test Item Value Reference Range Interpretation Comments Basophils (test code = 0.2 See_Comment [Aut omated message] The Basophils) system which ge nerated this result tra nsmitted reference range : <=1.0. The reference r fernando was not used to int erpret this result as normal/abnormal . [facility] WorthHgghhtmRIQPWOXMUY0662-88-93 05:37:00 Test Item Value Reference Range Interpretation Comments Segs-Bands # (test code = Segs-Bands #) 6.3 1.5-8.1 [facility] WorthJrmgdplPUMLCOPVAP7753-82-98 05:37:00 Test Item Value Reference Range Interpretation Comments MCV (test code = MCV) 82.1 80.0-98.0 [facility] WorthHunpugeQSZEIORXUW5845-39-29 05:37:00 Test Item Value Reference Range Interpretation Comments Hct (test code = Hct) 27.1 36.0-48.0 [facility] WorthCcfgfezAAIDYCPLIK6185-47-71 05:37:00 Test Item Value Reference Range Interpretation Comments MCHC (test code = MCHC) 34.5 32.0-36.0 [facility] WorthViacmqqMBHAGNJDLV2296-78-45 05:37:00 Test Item Value Reference Range Interpretation Comments MCH (test code = MCH) 28.3 pg 27.0-31.0 [facility] WorthIddxudkHBRQEOINKN5966-78-65 05:37:00 Test Item Value Reference Range Interpretation Comments RBC (test code = RBC) 3.29 4.20-5.40 [facility] WorthTflunhiLOQJMRDOMR6383-37-19 05:37:00 Test Item Value Reference Range Interpretation Comments WBC (test code = WBC) 7.5 3.7-10.4 [facility] WorthMsdtikaDVAFQHJRWG9498-21-47 05:37:00 Test Item Value Reference Range Interpretation Comments RDW (test code = RDW) 15.1 11.5-14.5 [facility] WorthDuuahidYLGNZLNPHY5090-39-72 05:37:00 Test Item Value Reference Range Interpretation Comments Platelet (test code = Platelet) 191 133-450 [facility] WorthPgsqjzmHKAFQGAOOP1832-68-50 05:37:00 Test Item Value Reference Range Interpretation Comments MPV (test code = MPV) 7.8 7.4-10.4 [facility] WorthIjdozqqNAYEMYXRUG0779-50-02 05:37:00 Test Item Value Reference Range Interpretation Comments Hgb (test code = Hgb) 9.3 12.0-16.0 [facility]2018-06-15 05:37:00 Test Item Value Reference Range Interpretation Comments Ca Norm WB (test code = Ca Norm WB) 1.08 1.05-1.25 [facility]2018-06-15 05:37:00 Test Item Value Reference Range Interpretation Comments Ca Ion WB (test code = Ca Ion WB) 1.04 1.05-1.25 [facility]2018-06-14 11:46:00 Test Item Value Reference Range Interpretation Comments A/G Ratio (test code = A/G Ratio) 0.6 1 0.7-1.6 [facility]2018-06-14 11:46:00 Test Item Value Reference Range Interpretation Comments Globulin (test code = Globulin) 3.6 2.7-4.2 [facility]2018-06-14 11:46:00 Test Item Value Reference Range Interpretation Comments Bili Indirect (test 0.4 See_Comment [Automa timur message] The code = Bili Indirect) system which generated this result tra nsmitted reference range : <=1.0. The reference r fernando was not used to int erpret this result as normal/abnormal . [facility]2018-06-14 11:46:00 Test Item Value Reference Range Interpretation Comments Bili Direct (test code 0.7 See_Comment [Aut omated message] The = Bili Direct) system which generated this result tra nsmitted reference range : <=0.3. The reference r fernando was not used to int erpret this result as jasmyne l/abnormal. [facility]2018-06-14 11:46:00 Test Item Value Reference Range Interpretation Comments Alk Phos (test code = Alk Phos) 276 39-136 [facility]2018-06-14 11:46:00 Test Item Value Reference Range Interpretation Comments AST (test code = AST) 44 See_Comment [Auto mated message] The system which ge nerated this result transmit timur reference range : <=37. The reference range was not used to interpr et this result as jasmyne l/abnormal. [facility]2018-06-14 11:46:00 Test Item Value Reference Range Interpretation Comments ALT (test code = ALT) 54 See_Comment [Auto mated message] The system which ge nerated this result transmit timur reference range : <=65. The reference range was not used to interpr et this result as jasmyne l/abnormal. [facility]2018-06-14 11:46:00 Test Item Value Reference Range Interpretation Comments Albumin Lvl (test code = Albumin Lvl) 2.3 3.5-5.0 [facility]2018-06-14 11:46:00 Test Item Value Reference Range Interpretation Comments Total Protein (test code = Total 5.9 6.4-8.4 Protein) [facility]2018-06-14 11:46:00 Test Item Value Reference Range Interpretation Comments Bili Total (test code = Bili Total) 1.1 0.2-1.3 [place] [id number] 11:46:00 Test Item Value Reference Range Interpretation Comments Aldosterone (test code = no gt See_Comment [A utomated message] The Aldosterone) system which ge nerated this result tra nsmitted reference range : <=30.0. The reference r fernando was not used to int erpret this result as normal/abnormal . [id number] 11:46:00 Test Item Value Reference Range Interpretation Comments Renin Activity (test code = Renin 0.527 0.167-5.380 Activity) [facility] AND [id number] 11:46:00 Test Item Value Reference Range Interpretation Comments UA Urobilinogen (test code = UA <=1.0 mg/dL 0.1-1.0 Urobilinogen) [facility] AND [id number] 11:46:00 Test Item Value Reference Range Interpretation Comments UA Mucus (test code = UA Mucus) Few /LPF [facility] AND [id number] 11:46:00 Test Item Value Reference Range Interpretation Comments UA Sq Epi (test code = UA Sq Occasional /LPF Epi) [facility] AND [id number] 11:46:00 Test Item Value Reference Range Interpretation Comments UA Nitrite (test code Negative (02/22/18 6:46 = UA Nitrite) AM) [facility] AND [id number] 11:46:00 Test Item Value Reference Range Interpretation Comments UA Hyal Cast (test 1 See_Comment [Automat ed message] The code = UA Hyal Cast) system which generated this result transmit timur reference range : <=2. The reference range was not used to interpr et this result as jasmyne l/abnormal. [facility] AND [id number] 11:46:00 Test Item Value Reference Range Interpretation Comments UA RBC (test code = 1 See_Comment [Automa timur message] The UA RBC) system which ge nerated this result transmit timur reference range : <=2. The reference range was not used to interpr et this result as jasmyne l/abnormal. [facility] [id number] 11:46:00 Test Item Value Reference Range Interpretation Comments UA Leuk Est (test Negative (02/22/18 6:46 code = UA Leuk Est) AM) [facility] AND [id number] 11:46:00 Test Item Value Reference Range Interpretation Comments UA WBC (test code = 3 See_Comment [Automa timur message] The UA WBC) system which ge nerated this result transmit timur reference range : <=5. The reference range was not used to interpr et this result as jasmyne l/abnormal. [facility] [id number] 11:46:00 Test Item Value Reference Range Interpretation Comments UA Turbidity (test code Slight *ABN*(02/22/18 = UA Turbidity) 6:46 AM) [facility] AND [id number] 11:46:00 Test Item Value Reference Range Interpretation Comments UA Color (test code = Yellow *NA*(02/22/18 UA Color) 6:46 AM) [facility] AND [id number] 11:46:00 Test Item Value Reference Range Interpretation Comments UA pH (test code = UA pH) 6.0 1 5.0-8.0 [facility] AND [id number] 11:46:00 Test Item Value Reference Range Interpretation Comments UA Ketones (test code = UA Negative mg/dL Ketones) [facility] AND [id number] 11:46:00 Test Item Value Reference Range Interpretation Comments UA Protein (test code = UA Protein) 20 mg/dL [facility] AND [id number] 11:46:00 Test Item Value Reference Range Interpretation Comments UA Spec Grav (test code = UA Spec 1.011 1 Grav) [facility] AND [id number] 11:46:00 Test Item Value Reference Range Interpretation Comments UA Glucose (test code = UA Glucose) 70 mg/dL [facility] AND [id number] 11:46:00 Test Item Value Reference Range Interpretation Comments UA Bili (test code = Negative *NA*(02/22/18 UA Bili) 6:46 AM) [facility] AND [id number] 11:46:00 Test Item Value Reference Range Interpretation Comments UA Blood (test code = Negative (02/22/18 6:46 UA Blood) AM) [facility]2018-06-14 11:46:00 Test Item Value Reference Range Interpretation Comments U Creatinine (test code = U Creatinine) 22.10 [facility]2018-06-14 11:46:00 Test Item Value Reference Range Interpretation Comments U Chloride (test code = U Chloride) 155 [facility]2018-06-14 11:46:00 Test Item Value Reference Range Interpretation Comments U Potassium (test code = U Potassium) 61.1 [facility]2018-06-14 11:46:00 Test Item Value Reference Range Interpretation Comments U Sodium (test code = U Sodium) 98 [facility]2018-06-14 04:44:00 Test Item Value Reference Range Interpretation Comments Magnesium Lvl (test code = Magnesium 2.4 1.8-2.4 Lvl) [facility]2018-06-14 04:44:00 Test Item Value Reference Range Interpretation Comments Phosphorus (test code = Phosphorus) 2.6 2.5-4.5 [facility]2018-06-14 04:44:00 Test Item Value Reference Range Interpretation Comments Ca Ion WB (test code = Ca Ion WB) 1.06 1.05-1.25 [facility]2018-06-14 04:44:00 Test Item Value Reference Range Interpretation Comments Ca Norm WB (test code = Ca Norm WB) 1.09 1.05-1.25 [facility]2018-06-13 22:33:00 Test Item Value Reference Range Interpretation Comments Lactic Acid Lvl (test code = Lactic 1.4 0.5-2.2 Acid Lvl) [facility]2018-06-13 20:03:00 Test Item Value Reference Range Interpretation Comments U Osmolality (test code = U Osmolality) 360 300-800 [facility]2018-06-13 20:03:00 Test Item Value Reference Range Interpretation Comments U Sodium (test code = U Sodium) 88 [facility]2018-06-13 15:44:00 Test Item Value Reference Range Interpretation Comments Albumin Lvl (test code = Albumin Lvl) 2.6 3.5-5.0 [facility]2018-06-13 15:44:00 Test Item Value Reference Range Interpretation Comments Total Protein (test code = Total 6.7 6.4-8.4 Protein) [facility]2018-06-13 15:44:00 Test Item Value Reference Range Interpretation Comments B/C Ratio (test code = B/C Ratio) 12 1 6-25 [facility]2018-06-13 15:44:00 Test Item Value Reference Range Interpretation Comments ALT (test code = ALT) 67 See_Comment [Auto mated message] The system which ge nerated this result transmit timur reference range : <=65. The reference range was not used to interpr et this result as jasmyne l/abnormal. [facility]2018-06-13 15:44:00 Test Item Value Reference Range Interpretation Comments Bili Total (test code = Bili Total) 1.2 0.2-1.3 [facility]2018-06-13 15:44:00 Test Item Value Reference Range Interpretation Comments AST (test code = AST) 77 See_Comment [Auto mated message] The system which ge nerated this result transmit timur reference range : <=37. The reference range was not used to interpr et this result as jasmyne l/abnormal. [facility] [employer] [id number] 15:44:00 Test Item Value Reference Range Interpretation Comments A/G Ratio (test code = A/G Ratio) 0.6 1 0.7-1.6 [facility] [employer] [id number] 15:44:00 Test Item Value Reference Range Interpretation Comments Alk Phos (test code = Alk Phos) 269 39-136 [facility] [employer] [id number] 15:44:00 Test Item Value Reference Range Interpretation Comments Globulin (test code = Globulin) 4.1 2.7-4.2 [facility] [employer] [id number] 15:44:00 Test Item Value Reference Range Interpretation Comments Osmolality (test code = Osmolality) 270 280-300 [facility] [id number] 08:30:00 Test Item Value Reference Range Interpretation Comments Hgb A1C (test code = Hgb A1C) 6.5 [facility] [employer] [id number] 06:01:00 Test Item Value Reference Range Interpretation Comments proBNP (test code = 4235 See_Comment [Automa timur message] The proBNP) system which ge nerated this result tra nsmitted reference range : <=450. The reference r fernando was not used to int erpret this result as jasmyne l/abnormal. [facility] [employer] [id number] 06:01:00 Test Item Value Reference Range Interpretation Comments BNP (test code = BNP) 345 [facility] [employer] [id number] 06:01:00 Test Item Value Reference Range Interpretation Comments Lactic Acid Lvl (test code = Lactic 1.7 0.5-2.2 Acid Lvl) [facility] [employer] [id number] 06:01:00 Test Item Value Reference Range Interpretation Comments Procalcitonin Lvl (test 0.41 See_Comment [Au tomated message] code = Procalcitonin Lvl) Th e system which generated this result transmitted ref erence range: <=0.10. The reference range was not used to interpr et this result as normal/abnormal . [facility] [employer] [id number] 11:57:00 Test Item Value Reference Range Interpretation Comments Bili Indirect (test 0.4 See_Comment [Automa timur message] The code = Bili Indirect) system which generated this result tra nsmitted reference range : <=1.0. The reference r fernando was not used to int erpret this result as normal/abnormal . [facility]2018-06-12 11:57:00 Test Item Value Reference Range Interpretation Comments Bili Total (test code = Bili Total) 0.7 0.2-1.3 [facility]2018-06-12 11:57:00 Test Item Value Reference Range Interpretation Comments Bili Direct (test code 0.3 See_Comment [Aut omated message] The = Bili Direct) system which generated this result tra nsmitted reference range : <=0.3. The reference r fernando was not used to int erpret this result as jasmyne l/abnormal. [facility]2018-06-12 11:57:00 Test Item Value Reference Range Interpretation Comments AST (test code = AST) 87 See_Comment [Auto mated message] The system which ge nerated this result transmit timur reference range : <=37. The reference range was not used to interpr et this result as jasmyne l/abnormal. [facility]2018-06-12 11:57:00 Test Item Value Reference Range Interpretation Comments ALT (test code = ALT) 56 See_Comment [Auto mated message] The system which ge nerated this result transmit timur reference range : <=65. The reference range was not used to interpr et this result as jasmyne l/abnormal. [facility]2018-06-12 11:57:00 Test Item Value Reference Range Interpretation Comments Alk Phos (test code = Alk Phos) 162 39-136 [facility]2018-06-12 11:57:00 Test Item Value Reference Range Interpretation Comments Albumin Lvl (test code = Albumin Lvl) 2.5 3.5-5.0 [facility]2018-06-12 11:57:00 Test Item Value Reference Range Interpretation Comments Total Protein (test code = Total 6.0 6.4-8.4 Protein) [facility]2018-06-12 11:57:00 Test Item Value Reference Range Interpretation Comments Globulin (test code = Globulin) 3.5 2.7-4.2 [facility] [id number] 11:57:00 Test Item Value Reference Range Interpretation Comments A/G Ratio (test code = A/G Ratio) 0.7 1 0.7-1.6 [facility] [id number] 11:57:00 Test Item Value Reference Range Interpretation Comments Procalcitonin Lvl (test 0.35 See_Comment [Au tomated message] code = Procalcitonin Lvl) Th e system which generated this result transmitted ref erence range: <=0.10. The reference range was not used to interpr et this result as normal/abnormal . [facility] - [id number] 17:56:00 Test Item Value Reference Range Interpretation Comments MRSA by PCR (test Negative (02/19/18 12:56 code = MRSA by PCR) PM) [facility] AND [id number] 11:34:00 Test Item Value Reference Range Interpretation Comments UA Leuk Est (test Moderate *ABN*(02/19/18 code = UA Leuk Est) 6:34 AM) [facility] AND [id number] 11:34:00 Test Item Value Reference Range Interpretation Comments UA Urobilinogen (test code = UA 0.2 0.1-1.0 Urobilinogen) [facility] AND [id number] 11:34:00 Test Item Value Reference Range Interpretation Comments UA Nitrite (test code Positive *ABN*(02/19/18 = UA Nitrite) 6:34 AM) [facility] AND [id number] 11:34:00 Test Item Value Reference Range Interpretation Comments UA pH (test code = UA pH) 8.5 1 5.0-8.0 [facility] AND [id number] 11:34:00 Test Item Value Reference Range Interpretation Comments UA Protein (test code Negative (02/19/18 6:34 = UA Protein) AM) [facility] AND [id number] 11:34:00 Test Item Value Reference Range Interpretation Comments UA Glucose (test code Negative (02/19/18 6:34 = UA Glucose) AM) [facility] AND [id number] 11:34:00 Test Item Value Reference Range Interpretation Comments UA Blood (test code = Negative (02/19/18 6:34 UA Blood) AM) [facility] AND [id number] 11:34:00 Test Item Value Reference Range Interpretation Comments UA Ketones (test code Negative *NA*(02/19/18 = UA Ketones) 6:34 AM) [facility] AND [id number] 11:34:00 Test Item Value Reference Range Interpretation Comments UA Bili (test code = Negative *NA*(02/19/18 UA Bili) 6:34 AM) [facility] AND [id number] 11:34:00 Test Item Value Reference Range Interpretation Comments UA Color (test code = Yellow *NA*(02/19/18 UA Color) 6:34 AM) [facility] AND [id number] 11:34:00 Test Item Value Reference Range Interpretation Comments UA Spec Grav (test code = UA Spec 1.010 1 Grav) [facility] AND [id number] 11:34:00 Test Item Value Reference Range Interpretation Comments UA Turbidity (test code = Clear (02/19/18 6:34 UA Turbidity) AM) [facility] AND [id number] 11:34:00 Test Item Value Reference Range Interpretation Comments UA Amorph Aliya (test code = Occasional /HPF UA Amorph Aliya) [facility] AND [id number] 11:34:00 Test Item Value Reference Range Interpretation Comments UA Sq Epi (test code = UA Sq Occasional /LPF Epi) [facility] AND [id number] 11:34:00 Test Item Value Reference Range Interpretation Comments UA WBC (test code = 28 See_Comment [Automa timur message] The UA WBC) system which ge nerated this result transmit timur reference range : <=5. The reference range was not used to interpr et this result as jasmyne l/abnormal. [facility] AND [id number] 11:34:00 Test Item Value Reference Range Interpretation Comments UA RBC (test code = 8 See_Comment [Automa timur message] The UA RBC) system which ge nerated this result transmit timur reference range : <=2. The reference range was not used to interpr et this result as jasmyne l/abnormal. [facility] AND [id number] 11:34:00 Test Item Value Reference Range Interpretation Comments UA Mucus (test code = UA Mucus) Moderate /LPF [facility] [id number] 10:49:00 Test Item Value Reference Range Interpretation Comments Troponin-T (test code no gt See_Comment [Auto mated message] The = Troponin-T) system which g enerated this result transmit timur reference range : <=0.100. The reference r fernando was not used to interpr et this result as jasmyne l/abnormal. [facility]DdfloqgHOYFPYRFMT2462-40-26 10:49:00 Test Item Value Reference Range Interpretation Comments Plav Effect Plt (test code = Plav 281 Effect Plt) [facility] HealthNwrcxsoVCZYVEPZEV1042-76-78 10:49:00 Test Item Value Reference Range Interpretation Comments ASA Effect Plt (test code = ASA Effect 565 Plt) [facility] [id number] 10:06:00 Test Item Value Reference Range Interpretation Comments Troponin-I (test code 0.04 See_Comment [Auto mated message] The = Troponin-I) system which g enerated this result transmit timur reference range : <=0.40. The reference r fernando was not used to interpr et this result as jasmyne l/abnormal. [facility] [id number] 09:31:00 Test Item Value Reference Range Interpretation Comments FFP product (test code Product available = FFP product) (02/19/18 4:31 AM) [facility]CHE[facility] [id number] 08:36:00 Test Item Value Reference Range Interpretation Comments Lactic Acid Lvl (test code = Lactic 1.7 0.5-2.2 Acid Lvl) [facility] CenterV[facility] [id number] 08:31:00 Test Item Value Reference Range Interpretation Comments Antibody Scrn (test Negative (02/19/18 3:31 code = Antibody Scrn) AM) [facility] CenterX[employer] [id number] 08:31:00 Test Item Value Reference Range Interpretation Comments ABO/Rh (test code = ABO/Rh) A POS [facility] WorthUepgejeCXLMHPMVVT0153-80-30 08:31:00 Test Item Value Reference Range Interpretation Comments PTT (test code = PTT) 51.4 s 22.9-35.8 [facility] WorthDaewbcoDFUEQHJSRM6058-00-64 08:31:00 Test Item Value Reference Range Interpretation Comments INR (test code = INR) 1.04 1 0.85-1.17 [facility] WorthWaeqyotWZCLVZQNAQ2227-29-46 08:31:00 Test Item Value Reference Range Interpretation Comments PT (test code = PT) 13.6 s 12.0-14.7 [facility] WorthJcfcwamTESYEFMDYC0718-25-00 08:31:00 Test Item Value Reference Range Interpretation Comments K-time Rapid (test code = K-time 0.8 min 0.6-2.3 Rapid) [facility] WorthCtquopoPJNMBXRPHF2377-82-91 08:31:00 Test Item Value Reference Range Interpretation Comments R-time Rapid (test code = R-time 0.6 min 0.4-0.7 Rapid) [facility] WorthKvgtjgyNUAFGMZKAQ9129-79-72 08:31:00 Test Item Value Reference Range Interpretation Comments Split Point Rapid (test code = Split 0.5 min Point Rapid) [facility] WorthNccscraPKQMCBQNUH9541-76-43 08:31:00 Test Item Value Reference Range Interpretation Comments ACT (TEG) Rapid (test code = ACT (TEG) 105 s 86-118 Rapid) [facility] WorthHnlbxblHZJXPYHHGF2340-86-67 08:31:00 Test Item Value Reference Range Interpretation Comments G-value Rapid (test code = G-value 17.0 5.0-11.6 Rapid) [facility] WorthMpynauhXBIYOLRWZN4052-79-88 08:31:00 Test Item Value Reference Range Interpretation Comments Estimated % Lysis Rapid 1.2 See_Comment [Au tomated message] The (test code = Estimated syste m which generated % Lysis Rapid) this result t ransmitted reference range : <=7.5. The reference r fernando was not used to int erpret this result as normal/abnormal . [facility] WorthUnsbezjCPWLNFIMEG1909-16-49 08:31:00 Test Item Value Reference Range Interpretation Comments Angle Rapid (test code = Angle 81 degrees 64-80 Rapid) [facility] WorthOyhgksiWFJEYQEQHU8432-55-27 08:31:00 Test Item Value Reference Range Interpretation Comments Max Amplitude Rapid (test code = Max 77 mm 52-71 Amplitude Rapid) [facility]UocubfgPQARGFORKPAB0455-48-94 13:38:00 Test Item Value Reference Range Interpretation Comments Potassium Lvl (test code = Potassium 3.4 3.5-5.1 Lvl) [facility]2018-06-04 10:51:00 Test Item Value Reference Range Interpretation Comments Calcium Lvl (test code = Calcium Lvl) 8.7 8.5-10.5 [facility]2018-06-04 10:51:00 Test Item Value Reference Range Interpretation Comments AGAP (test code = AGAP) 14.9 10.0-20.0 [facility]2018-06-04 10:51:00 Test Item Value Reference Range Interpretation Comments Glucose Lvl (test code = Glucose Lvl) 110 70-99 [facility]2018-06-04 10:51:00 Test Item Value Reference Range Interpretation Comments CO2 (test code = CO2) 27 24-32 [facility]2018-06-04 10:51:00 Test Item Value Reference Range Interpretation Comments Creatinine Lvl (test code = Creatinine 0.62 0.50-1.40 Lvl) [facility]2018-06-04 10:51:00 Test Item Value Reference Range Interpretation Comments BUN (test code = BUN) 6 7-22 [facility]2018-06-04 10:51:00 Test Item Value Reference Range Interpretation Comments Sodium Lvl (test code = Sodium Lvl) 140 135-145 [facility]2018-06-04 10:51:00 Test Item Value Reference Range Interpretation Comments Potassium Lvl (test code = Potassium 2.9 3.5-5.1 Lvl) [facility]2018-06-04 10:51:00 Test Item Value Reference Range Interpretation Comments Chloride Lvl (test code = Chloride Lvl) 101 95-109 [facility]2018-06-04 10:51:00 Test Item Value Reference Range Interpretation Comments eGFR (test code = eGFR) [address] [facility] HospitalRninvtwZWSUDFRNISDO9913-28-77 05:33:00 Test Item Value Reference Range Interpretation Comments Sodium Lvl (test code = Sodium Lvl) 140 135-[address] [facility] HospitalFlwwchrVTGDGNHIGLQH9801-51-79 05:33:00 Test Item Value Reference Range Interpretation Comments Potassium Lvl (test code = Potassium 4.1 3.5-5.1 Lvl) [facility] HospitalWrydcggQHWZEZVURRIA5645-83-73 18:24:00 Test Item Value Reference Range Interpretation Comments Sodium Lvl (test code = Sodium Lvl) 137 135-145 [facility]2018-06-01 05:20:00 Test Item Value Reference Range Interpretation Comments eGFR (test code = eGFR) 86 [facility]2018-06-01 05:20:00 Test Item Value Reference Range Interpretation Comments Chloride Lvl (test code = Chloride Lvl) 103 95-109 [facility]2018-06-01 05:20:00 Test Item Value Reference Range Interpretation Comments CO2 (test code = CO2) 24 24-32 [facility]2018-06-01 05:20:00 Test Item Value Reference Range Interpretation Comments AGAP (test code = AGAP) 15.0 10.0-20.0 [facility]2018-06-01 05:20:00 Test Item Value Reference Range Interpretation Comments Calcium Lvl (test code = Calcium Lvl) 8.7 8.5-10.5 [facility]2018-06-01 05:20:00 Test Item Value Reference Range Interpretation Comments BUN (test code = BUN) 8 7-22 [facility]2018-06-01 05:20:00 Test Item Value Reference Range Interpretation Comments Creatinine Lvl (test code = Creatinine 0.62 0.50-1.40 Lvl) [facility]2018-06-01 05:20:00 Test Item Value Reference Range Interpretation Comments Glucose Lvl (test code = Glucose Lvl) 169 70-99 [facility] WorthCdbjsoqYIJYPQFTCM7431-49-65 05:20:00 Test Item Value Reference Range Interpretation Comments Lymphocytes # (test code = Lymphocytes 1.6 1.0-5.5 #) [facility] WorthGrtqakzEAGJPGBRJX4441-38-71 05:20:00 Test Item Value Reference Range Interpretation Comments Segs-Bands # (test code = Segs-Bands #) 6.7 1.5-8.1 [facility] WorthEawvybaQLDMLHANTX6140-04-69 05:20:00 Test Item Value Reference Range Interpretation Comments Monocytes # (test code 0.8 See_Comment [Aut omated message] The = Monocytes #) system which generated this result tra nsmitted reference range : <=0.8. The reference r fernando was not used to int erpret this result as normal/abnormal . [facility] WorthCccxgheHIVGWABWUX8629-06-75 05:20:00 Test Item Value Reference Range Interpretation Comments Eosinophils # (test code 0.1 See_Comment [A utomated message] The = Eosinophils #) system whic h generated this result tra nsmitted reference range : <=0.5. The reference r fernando was not used to int erpret this result as normal/abnormal . [facility] WorthUmybhmqPHNWXSWIKU8949-63-26 05:20:00 Test Item Value Reference Range Interpretation Comments Monocytes (test code = Monocytes) 8.3 2.0-12.0 [facility] WorthYiamvbpRPYBVQKSKZ4192-77-08 05:20:00 Test Item Value Reference Range Interpretation Comments Eosinophils (test code = 1.4 See_Comment [A utomated message] The Eosinophils) system which ge nerated this result tra nsmitted reference range : <=4.0. The reference r fernando was not used to int erpret this result as normal/abnormal . [facility] WorthQgrziksXPICOSSTJY3062-94-09 05:20:00 Test Item Value Reference Range Interpretation Comments Basophils (test code = 0.4 See_Comment [Aut omated message] The Basophils) system which ge nerated this result tra nsmitted reference range : <=1.0. The reference r fernando was not used to int erpret this result as normal/abnormal . [facility] WorthOhwhisuRRQJUFBVUC5872-40-59 05:20:00 Test Item Value Reference Range Interpretation Comments Lymphocytes (test code = Lymphocytes) 17.5 20.0-40.0 [facility] WorthTybuywvTYWEYQUBZC6023-92-59 05:20:00 Test Item Value Reference Range Interpretation Comments Segs (test code = Segs) 72.4 45.0-75.0 [facility] WorthTydgnnuRFBOOEAFLE4846-65-01 05:20:00 Test Item Value Reference Range Interpretation Comments MCV (test code = MCV) 83.0 80.0-98.0 [facility] WorthHbyrenmYJHVKRSMUS9429-39-50 05:20:00 Test Item Value Reference Range Interpretation Comments MCH (test code = MCH) 28.3 pg 27.0-31.0 [facility] WorthUvlskcuYNCHEFGOPW3049-11-22 05:20:00 Test Item Value Reference Range Interpretation Comments Hct (test code = Hct) 29.7 36.0-48.0 [facility] WorthOymlpkhFHTDCIFINS4188-23-79 05:20:00 Test Item Value Reference Range Interpretation Comments Platelet (test code = Platelet) 257 133-450 [facility] WorthUioisdmTMTWLXMUMU4629-35-07 05:20:00 Test Item Value Reference Range Interpretation Comments MPV (test code = MPV) 8.3 7.4-10.4 [facility] WorthYphsehnHNBVXMJTEL9213-89-84 05:20:00 Test Item Value Reference Range Interpretation Comments RDW (test code = RDW) 15.1 11.5-14.5 [facility] WorthCzzsnumRPWGHCKZRQ6141-55-06 05:20:00 Test Item Value Reference Range Interpretation Comments MCHC (test code = MCHC) 34.1 32.0-36.0 [facility] WorthXumnlfeYNYOWSYTYQ6129-80-32 05:20:00 Test Item Value Reference Range Interpretation Comments RBC (test code = RBC) 3.58 4.20-5.40 [facility] WorthRjfeiytHTZABALYHF9381-96-55 05:20:00 Test Item Value Reference Range Interpretation Comments Hgb (test code = Hgb) 10.1 12.0-16.0 [facility] WorthEpttygvGOVONUVTEG3973-69-48 05:20:00 Test Item Value Reference Range Interpretation Comments WBC (test code = WBC) 9.3 3.7-10.4 [facility] WorthOrdnneiPWHPWWFIWK9857-33-84 10:57:00 Test Item Value Reference Range Interpretation Comments PTT (test code = PTT) 48.4 s 22.9-35.8 [facility] WorthKhsarlrFPVUCDYDMN0423-33-91 10:57:00 Test Item Value Reference Range Interpretation Comments INR (test code = INR) 1.17 1 0.85-1.17 [facility] WorthWodlkoaTXJMSEKLXQ7862-10-53 10:57:00 Test Item Value Reference Range Interpretation Comments PT (test code = PT) 15.0 s 12.0-14.7 [facility] WorthSvthwlsSYTUVCXINX4655-93-19 10:57:00 Test Item Value Reference Range Interpretation Comments Ly30 (test code = 2.3 See_Comment [Automate d message] The Ly30) system which ge nerated this result transmit timur reference range : <=7.5. The reference range was not used to interpr et this result as jasmyne l/abnormal. [facility] WorthZvfznriEKJWPHZATB0255-81-21 10:57:00 Test Item Value Reference Range Interpretation Comments TEG Data (test code = See Note (02/08/18 5:57 TEG Data) AM) [facility] WorthZhyrkwwLUHRNSMLXQ1612-06-35 10:57:00 Test Item Value Reference Range Interpretation Comments Coag Index (test code 4.0 1 See_Comment [Auto mated message] The = Coag Index) system which g enerated this result transmit timur reference range : <=3.0. The reference range was not used to interpr et this result as jasmyne l/abnormal. [facility] WorthDhhiihmNIZZWRUEWW5464-73-19 10:57:00 Test Item Value Reference Range Interpretation Comments G-value (test code = G-value) 12.6 4.5-11.0 [facility] WorthImaguwcTFANHLESNM0717-72-45 10:57:00 Test Item Value Reference Range Interpretation Comments Max Amp (test code = Max Amp) 71.6 mm 50.0-70.0 [facility] WorthVchpnweXTKSKJKHJE3006-06-14 10:57:00 Test Item Value Reference Range Interpretation Comments Angle (test code = Angle) 74.1 degrees 53.0-72.0 [facility] WorthSpkwbklONMPPQBOUX0504-47-33 10:57:00 Test Item Value Reference Range Interpretation Comments K-time (test code = K-time) 1.1 min 1.0-3.0 [facility] WorthAtwgadfLGALULGTCB7904-94-07 10:57:00 Test Item Value Reference Range Interpretation Comments R-time (test code = R-time) 3.3 min 5.0-10.0 [facility] WorthYlwumbtJCTFRXLWCU8694-87-49 10:57:00 Test Item Value Reference Range Interpretation Comments TEG Interp (test Thrombelastograph results code = TEG show shortened value of R Interp) and increased values of both Angle Alpha and MA. These findings are suggestive of platelet and enzymatic hypercoagulation which may be seen in early phase of DIC. Monitor for DIC with DIC panel may be indicated. CPT:26159 [facility]CHE[facility] YXVCJ1221-56-41 05:45:00 Test Item Value Reference Range Interpretation Comments Magnesium Lvl (test code = Magnesium 2.2 1.8-2.4 Lvl) [facility] CenterCHEM TCIFF7787-11-62 05:45:00 Test Item Value Reference Range Interpretation Comments Phosphorus (test code = Phosphorus) 2.1 2.5-4.[address] [facility] HospitalQtzpbepGGGRDNTFLGVX4308-23-83 05:45:00 Test Item Value Reference Range Interpretation Comments AGAP (test code = AGAP) 13.5 10.0-20.[address] [facility] HospitalFyezmiwNUOBNGFTLORB9110-16-70 05:45:00 Test Item Value Reference Range Interpretation Comments BUN (test code = BUN) 13 7-[address] [facility] HospitalAlmulvrQZPOPTCJVQVC7482-32-41 05:45:00 Test Item Value Reference Range Interpretation Comments Creatinine Lvl (test code = Creatinine 0.73 0.50-1.40 Lvl) [facility] HospitalEwcrqazEVPNGYXQCRCO7721-45-65 05:45:00 Test Item Value Reference Range Interpretation Comments Calcium Lvl (test code = Calcium Lvl) 8.7 8.5-10.[address] [facility] HospitalJukzealTEAAIPXAGEVE6029-32-00 05:45:00 Test Item Value Reference Range Interpretation Comments Chloride Lvl (test code = Chloride Lvl) 105 95-[address] [facility] HospitalBxtymgcGBCPGMKFHKZD9976-02-32 05:45:00 Test Item Value Reference Range Interpretation Comments CO2 (test code = CO2) 24 24-[address] [facility] HospitalWzxqicsHNEDEEMBIYHZ7162-88-34 05:45:00 Test Item Value Reference Range Interpretation Comments eGFR (test code = eGFR) [address] [facility] HospitalMcfqjvbJCUZQPKNKOSH4143-58-54 05:45:00 Test Item Value Reference Range Interpretation Comments Glucose Lvl (test code = Glucose Lvl) 139 70-99 [facility] WorthMfltmqgHYARZGPZMO5264-85-50 05:45:00 Test Item Value Reference Range Interpretation Comments WBC (test code = WBC) 8.7 3.7-10.4 [facility] WorthKagrhgoRLRHWKYRVI7323-79-98 05:45:00 Test Item Value Reference Range Interpretation Comments RDW (test code = RDW) 14.8 11.5-14.5 [facility] WorthYddwrmmEEFDDLTTFU1217-64-33 05:45:00 Test Item Value Reference Range Interpretation Comments MCHC (test code = MCHC) 33.8 32.0-36.0 [facility] WorthXlkwqlzQNBTIMXXTS6868-75-74 05:45:00 Test Item Value Reference Range Interpretation Comments MCH (test code = MCH) 28.3 pg 27.0-31.0 [facility] WorthRcpzhyiOKNHFVOHZU5917-58-69 05:45:00 Test Item Value Reference Range Interpretation Comments MPV (test code = MPV) 8.2 7.4-10.4 [facility] WorthPgkdqtdDJEOBGXSRD8795-18-76 05:45:00 Test Item Value Reference Range Interpretation Comments Platelet (test code = Platelet) 228 133-450 [facility] WorthGeisoooSKSLROVZUG5947-18-59 05:45:00 Test Item Value Reference Range Interpretation Comments Hgb (test code = Hgb) 9.5 12.0-16.0 [facility] WorthMmavuiuYTFQANUSYM6247-15-23 05:45:00 Test Item Value Reference Range Interpretation Comments Hct (test code = Hct) 28.0 36.0-48.0 [facility] WorthQghoksoZILLYOXNYX3789-22-51 05:45:00 Test Item Value Reference Range Interpretation Comments MCV (test code = MCV) 83.8 80.0-98.0 [facility] WorthBifgcxtNDVZZCNGKG3761-66-36 05:45:00 Test Item Value Reference Range Interpretation Comments RBC (test code = RBC) 3.34 4.20-5.40 [facility] WorthDicqnzaVOMHFPSSAN3121-47-11 05:45:00 Test Item Value Reference Range Interpretation Comments Lymphocytes (test code = Lymphocytes) 16.6 20.0-40.0 [facility] WorthVzvfnbgNSYKSGFYJY8128-22-44 05:45:00 Test Item Value Reference Range Interpretation Comments Segs (test code = Segs) 73.5 45.0-75.0 [facility] WorthOchwulwCTXRXVCTRB8851-88-40 05:45:00 Test Item Value Reference Range Interpretation Comments Monocytes # (test code 0.8 See_Comment [Aut omated message] The = Monocytes #) system which generated this result tra nsmitted reference range : <=0.8. The reference r fernando was not used to int erpret this result as normal/abnormal . [facility] WorthBkmjsqhFZEZHMJYIM2285-83-52 05:45:00 Test Item Value Reference Range Interpretation Comments Segs-Bands # (test code = Segs-Bands #) 6.4 1.5-8.1 [facility] WorthCvjfzynPODRVWSLIM5179-51-92 05:45:00 Test Item Value Reference Range Interpretation Comments Basophils (test code = 0.1 See_Comment [Aut omated message] The Basophils) system which ge nerated this result tra nsmitted reference range : <=1.0. The reference r fernando was not used to int erpret this result as normal/abnormal . [facility] WorthPeyqwqeRRKIELQIBC1509-35-31 05:45:00 Test Item Value Reference Range Interpretation Comments Eosinophils (test code = 0.4 See_Comment [A utomated message] The Eosinophils) system which ge nerated this result tra nsmitted reference range : <=4.0. The reference r fernando was not used to int erpret this result as normal/abnormal . [facility] WorthMbgnqrbXVUZIJCTGN9787-40-09 05:45:00 Test Item Value Reference Range Interpretation Comments Monocytes (test code = Monocytes) 9.4 2.0-12.0 [facility] WorthPpdolxiOUZVGVUNUY2629-18-00 05:45:00 Test Item Value Reference Range Interpretation Comments Lymphocytes # (test code = Lymphocytes 1.4 1.0-5.5 #) [facility]2018-05-31 05:45:00 Test Item Value Reference Range Interpretation Comments Ca Norm WB (test code = Ca Norm WB) 1.15 1.05-1.25 [facility]2018-05-31 05:45:00 Test Item Value Reference Range Interpretation Comments Ca Ion WB (test code = Ca Ion WB) 1.12 1.05-1.25 [facility]2018-05-30 05:06:00 Test Item Value Reference Range Interpretation Comments Magnesium Lvl (test code = Magnesium 2.4 1.8-2.4 Lvl) [facility]2018-05-30 05:06:00 Test Item Value Reference Range Interpretation Comments Phosphorus (test code = Phosphorus) 2.6 2.5-4.5 [facility] WorthXelpyvmICITUHYHRX0338-39-90 05:06:00 Test Item Value Reference Range Interpretation Comments PTT (test code = PTT) 52.3 s 22.9-35.8 [facility] WorthHwdatgiMSWSLXFPHS9252-22-14 05:06:00 Test Item Value Reference Range Interpretation Comments PT (test code = PT) 14.8 s 12.0-14.7 [facility] WorthUyruucxUERHTEYUTP0067-90-41 05:06:00 Test Item Value Reference Range Interpretation Comments INR (test code = INR) 1.16 1 0.85-1.17 [facility] WorthSmvucakGRUAMEQXWS5559-91-35 05:06:00 Test Item Value Reference Range Interpretation Comments Estimated % Lysis Rapid 2.0 See_Comment [Au tomated message] The (test code = Estimated syste m which generated % Lysis Rapid) this result t ransmitted reference range : <=7.5. The reference r fernando was not used to int erpret this result as normal/abnormal . [facility] WorthQzxxsvbAYVGAKKWYY6802-69-75 05:06:00 Test Item Value Reference Range Interpretation Comments R-time Rapid (test code = R-time 0.8 min 0.4-0.7 Rapid) [facility] WorthMpxcdpmSXTWQUCFQT0673-26-07 05:06:00 Test Item Value Reference Range Interpretation Comments K-time Rapid (test code = K-time 0.8 min 0.6-2.3 Rapid) [facility] WorthXsoeheeUDOVEFLOAQ1979-11-50 05:06:00 Test Item Value Reference Range Interpretation Comments Split Point Rapid (test code = Split 0.7 min Point Rapid) [facility] WorthVjjtdtyMSLMUOQTJA2249-60-46 05:06:00 Test Item Value Reference Range Interpretation Comments Angle Rapid (test code = Angle 80 degrees 64-80 Rapid) [facility] WorthCqtcxelQMCCNSRCSA8191-94-46 05:06:00 Test Item Value Reference Range Interpretation Comments Max Amplitude Rapid (test code = Max 76 mm 52-71 Amplitude Rapid) [facility] WorthLbbzvkwGAZCTBRUGB8383-89-42 05:06:00 Test Item Value Reference Range Interpretation Comments ACT (TEG) Rapid (test code = ACT (TEG) 121 s 86-118 Rapid) [facility] WorthXymdvflIITSXVCENU0373-10-57 05:06:00 Test Item Value Reference Range Interpretation Comments G-value Rapid (test code = G-value 15.5 5.0-11.6 Rapid) [facility] [place]LAFXWI[place]KO8650-98-67 05:06:00 Test Item Value Reference Range Interpretation Comments WBC (test code = WBC) 7.3 3.7-10.4 [facility] [place] WorthIapepzxWMWLQQMQKQ7774-35-87 05:06:00 Test Item Value Reference Range Interpretation Comments RBC (test code = RBC) 3.28 4.20-5.40 [facility] [place] WorthXqpijdjTMADANKBVG4634-52-52 05:06:00 Test Item Value Reference Range Interpretation Comments MPV (test code = MPV) 8.0 7.4-10.4 [facility] [place] WorthZtzvolhFFIMWYRAAF4411-95-38 05:06:00 Test Item Value Reference Range Interpretation Comments MCHC (test code = MCHC) 34.8 32.0-36.0 [facility] [place] WorthDtcgposTTPJPUSHTY4974-05-48 05:06:00 Test Item Value Reference Range Interpretation Comments RDW (test code = RDW) 14.6 11.5-14.5 [facility] [place] WorthPuveiukFUSZBCFEAV4879-28-68 05:06:00 Test Item Value Reference Range Interpretation Comments Platelet (test code = Platelet) 228 133-450 [facility] [place] WorthFescokwHQWZOHHGTC1112-90-00 05:06:00 Test Item Value Reference Range Interpretation Comments MCV (test code = MCV) 82.5 80.0-98.0 [facility] [place] WorthDxjikknOSPJZAYFEM4295-34-85 05:06:00 Test Item Value Reference Range Interpretation Comments MCH (test code = MCH) 28.7 pg 27.0-31.0 [facility] [place] WorthWyytouxGMYECBZCZM2638-08-39 05:06:00 Test Item Value Reference Range Interpretation Comments Hgb (test code = Hgb) 9.4 12.0-16.0 [facility] [place] WorthIakttmeBSFVKQEKTK9379-44-58 05:06:00 Test Item Value Reference Range Interpretation Comments Hct (test code = Hct) 27.0 36.0-48.0 [facility] [place] WorthGnoitmcAVKHDDNMIY9401-47-43 05:06:00 Test Item Value Reference Range Interpretation Comments Monocytes # (test code 0.9 See_Comment [Aut omated message] The = Monocytes #) system which generated this result tra nsmitted reference range : <=0.8. The reference r fernando was not used to int erpret this result as normal/abnormal . [facility] [place] WorthUprfsegDAGQQNECXI1086-62-87 05:06:00 Test Item Value Reference Range Interpretation Comments Eosinophils # (test code 0.1 See_Comment [A utomated message] The = Eosinophils #) system whic h generated this result tra nsmitted reference range : <=0.5. The reference r fernando was not used to int erpret this result as normal/abnormal . [facility] [place] WorthHsbqvnzQLSGNFDFZC8200-32-27 05:06:00 Test Item Value Reference Range Interpretation Comments Lymphocytes # (test code = Lymphocytes 1.6 1.0-5.5 #) [facility] [place] WorthLjepnseXTSVZWPLNX2714-54-14 05:06:00 Test Item Value Reference Range Interpretation Comments Segs-Bands # (test code = Segs-Bands #) 4.8 1.5-8.1 [facility] [place] WorthNkpysuhTIGXRTXHVD6802-64-30 05:06:00 Test Item Value Reference Range Interpretation Comments Basophils (test code = 0.1 See_Comment [Aut omated message] The Basophils) system which ge nerated this result tra nsmitted reference range : <=1.0. The reference r fernando was not used to int erpret this result as normal/abnormal . [facility] [place] WorthPvvsuesHZVIHEBXYU7175-47-68 05:06:00 Test Item Value Reference Range Interpretation Comments Monocytes (test code = Monocytes) 12.4 2.0-12.0 [facility] [place] WorthHitnbvtVDIXKBADBN2426-71-38 05:06:00 Test Item Value Reference Range Interpretation Comments Eosinophils (test code = 0.8 See_Comment [A utomated message] The Eosinophils) system which ge nerated this result tra nsmitted reference range : <=4.0. The reference r fernando was not used to int erpret this result as normal/abnormal . [facility] [place] WorthClonvlfOVYCWIPGRI1701-55-15 05:06:00 Test Item Value Reference Range Interpretation Comments Lymphocytes (test code = Lymphocytes) 21.4 20.0-40.0 [facility] [place] WorthKnyunuwVAXELDHUFW3835-48-38 05:06:00 Test Item Value Reference Range Interpretation Comments Segs (test code = Segs) 65.3 45.0-75.0 [facility] [id number] 05:06:00 Test Item Value Reference Range Interpretation Comments Ca Ion WB (test code = Ca Ion WB) 1.14 1.05-1.25 [facility]2018-05-30 05:06:00 Test Item Value Reference Range Interpretation Comments Ca Norm WB (test code = Ca Norm WB) 1.14 1.05-1.25 [facility] [id number] 21:23:00 Test Item Value Reference Range Interpretation Comments Lactic Acid Lvl (test code = Lactic 1.7 0.5-2.2 Acid Lvl) [facility] [id number] 15:19:00 Test Item Value Reference Range Interpretation Comments Procalcitonin Lvl (test no gt See_Comment [Au tomated message] code = Procalcitonin Lvl) Th e system which generated this result transmitted ref erence range: <=0.10. The reference range was not used to interpr et this result as normal/abnormal . [facility] [employer] NetworkannBACTERIAL - [id number] 15:03:00 Test Item Value Reference Range Interpretation Comments MRSA by PCR (test Negative (02/06/18 10:03 code = MRSA by PCR) AM) [facility] [employer] NetworkannCHEM [id number] 15:03:00 Test Item Value Reference Range Interpretation Comments Lactic Acid Lvl (test code = Lactic 2.1 0.5-2.2 Acid Lvl) [facility] [employer] NetworkannCARDIAC [id number] 10:01:00 Test Item Value Reference Range Interpretation Comments Troponin-I (test code no gt See_Comment [Auto mated message] The = Troponin-I) system which g enerated this result transmit timur reference range : <=0.40. The reference r fernando was not used to interpr et this result as jasmyne l/abnormal. [facility] [employer]comCARClerts!AC [id number] 10:01:00 Test Item Value Reference Range Interpretation Comments Troponin-T (test code no gt See_Comment [Auto mated message] The = Troponin-T) system which g enerated this result transmit timur reference range : <=0.100. The reference r fernando was not used to interpr et this result as jasmyne l/abnormal. [facility] [employer].comCARDIAC [id number] 10:01:00 Test Item Value Reference Range Interpretation Comments Total CK (test code = Total CK) 188 12-191 [facility]IF[facility]ARD[facility] [id number] 10:01:00 Test Item Value Reference Range Interpretation Comments CK MB Index (test 1.2 1 See_Comment [Automate d message] The code = CK MB Index) [facility] generated this result transmit timur reference range : <=2.5. The reference range was not used to interpr et this result as jasmyne l/abnormal. [facility] [employer]comCARDIAC [id number] 10:01:00 Test Item Value Reference Range Interpretation Comments CK MB (test code = CK MB) 2.3 0.5-3.6 [facility] HospitalannPARATHYROID [id number] 06:28:00 Test Item Value Reference Range Interpretation Comments Ca Norm WB (test code = Ca Norm WB) 1.00 1.05-1.25 [facility] HospitalannPARATHYROID [id number] 06:28:00 Test Item Value Reference Range Interpretation Comments Ca Ion WB (test code = Ca Ion WB) 0.99 1.05-1.25 [facility] [id number] 05:16:00 Test Item Value Reference Range Interpretation Comments CK MB Index (test 1.5 1 See_Comment [Automate d message] The code = CK MB Index) [facility] generated this result transmit timur reference range : <=2.5. The reference range was not used to interpr et this result as jasmyne l/abnormal. [facility] [employer] NetworkannCARDIAC [id number] 05:16:00 Test Item Value Reference Range Interpretation Comments CK MB (test code = CK MB) 1.4 0.5-3.6 [facility] HermannCARDIAC [id number] 05:16:00 Test Item Value Reference Range Interpretation Comments Troponin-T (test code no gt See_Comment [Auto mated message] The = Troponin-T) system which g enerated this result transmit timur reference range : <=0.100. The reference r fernando was not used to interpr et this result as jasmyne l/abnormal. [facility] [employer]comCARClerts!AC [id number] 05:16:00 Test Item Value Reference Range Interpretation Comments Troponin-I (test code no gt See_Comment [Auto mated message] The = Troponin-I) system which g enerated this result transmit timur reference range : <=0.40. The reference r fernando was not used to interpr et this result as jasmyne l/abnormal. [facility] [id number] 05:16:00 Test Item Value Reference Range Interpretation Comments Total CK (test code = Total CK) 94 12-191 [facility] [employer]comCHEM [id number] 05:16:00 Test Item Value Reference Range Interpretation Comments Albumin Lvl (test code = Albumin Lvl) 3.2 3.5-5.0 [facility] [employer] [id number] 05:16:00 Test Item Value Reference Range Interpretation Comments B/C Ratio (test code = B/C Ratio) 14 1 6-25 [facility] [employer] [id number] 05:16:00 Test Item Value Reference Range Interpretation Comments Total Protein (test code = Total 6.4 6.4-8.4 Protein) [facility]2018-05-29 05:16:00 Test Item Value Reference Range Interpretation Comments Globulin (test code = Globulin) 3.2 2.7-4.2 [facility]2018-05-29 05:16:00 Test Item Value Reference Range Interpretation Comments ALT (test code = ALT) 16 See_Comment [Auto mated message] The system which ge nerated this result transmit timur reference range : <=65. The reference range was not used to interpr et this result as jasmyne l/abnormal. [facility]2018-05-29 05:16:00 Test Item Value Reference Range Interpretation Comments A/G Ratio (test code = A/G Ratio) 1.0 1 0.7-1.6 [facility]2018-05-29 05:16:00 Test Item Value Reference Range Interpretation Comments Bili Total (test code = Bili Total) 0.3 0.2-1.3 [facility]2018-05-29 05:16:00 Test Item Value Reference Range Interpretation Comments Alk Phos (test code = Alk Phos) 67 39-136 [facility]2018-05-29 05:16:00 Test Item Value Reference Range Interpretation Comments AST (test code = AST) 14 See_Comment [Auto mated message] The system which ge nerated this result transmit timur reference range : <=37. The reference range was not used to interpr et this result as jasmyne l/abnormal. [facility]2018-05-29 05:16:00 Test Item Value Reference Range Interpretation Comments Magnesium Lvl (test code = Magnesium 1.6 1.8-2.4 Lvl) [facility]2018-05-29 05:16:00 Test Item Value Reference Range Interpretation Comments Phosphorus (test code = Phosphorus) 2.1 2.5-4.5 [facility] [place] WorthImgsiopASHKINCOHK0292-03-12 05:16:00 Test Item Value Reference Range Interpretation Comments Estimated % Lysis Rapid 0.9 See_Comment [Au tomated message] The (test code = Estimated syste m which generated % Lysis Rapid) this result t ransmitted reference range : <=7.5. The reference r fernando was not used to int erpret this result as normal/abnormal . [facility] [place] WorthSaskdyeNMNMGHNTSS8330-39-27 05:16:00 Test Item Value Reference Range Interpretation Comments G-value Rapid (test code = G-value 11.7 5.0-11.6 Rapid) [facility] [place] WorthPrqgtdeOYMRGKMOTJ7310-45-13 05:16:00 Test Item Value Reference Range Interpretation Comments K-time Rapid (test code = K-time 0.8 min 0.6-2.3 Rapid) [facility] [place] WorthLaysjodJEPFGDQKRC0242-31-21 05:16:00 Test Item Value Reference Range Interpretation Comments Angle Rapid (test code = Angle 76 degrees 64-80 Rapid) [facility] [place] WorthZfgildcQUHWAMLWAB6683-91-49 05:16:00 Test Item Value Reference Range Interpretation Comments Max Amplitude Rapid (test code = Max 70 mm 52-71 Amplitude Rapid) [facility] [place] WorthXbbxoncJCSLHUKHOY4284-41-25 05:16:00 Test Item Value Reference Range Interpretation Comments ACT (TEG) Rapid (test code = ACT (TEG) 121 s 86-118 Rapid) [facility] [place] WorthDmgxuttKAWSZTDCME5049-87-38 05:16:00 Test Item Value Reference Range Interpretation Comments Split Point Rapid (test code = Split 0.4 min Point Rapid) [facility] [place] WorthEcirzusAYFFTVBRWR5060-84-30 05:16:00 Test Item Value Reference Range Interpretation Comments R-time Rapid (test code = R-time 0.8 min 0.4-0.7 Rapid) [facility] Fort WorthLhwzpqeFIWOYZWYWJ6568-67-43 05:16:00 Test Item Value Reference Range Interpretation Comments INR (test code = INR) 1.14 1 0.85-1.17 [facility] [place] WorthUkrfvdgHJGVZGELOZ6220-52-36 05:16:00 Test Item Value Reference Range Interpretation Comments PTT (test code = PTT) 46.9 s 22.9-35.8 [facility] [place] WorthQditjywLULZBFWZAK5795-80-98 05:16:00 Test Item Value Reference Range Interpretation Comments PT (test code = PT) 14.6 s 12.0-14.7 [facility] [place] WorthHawnkgpGFULOLBWTB7649-44-85 01:34:00 Test Item Value Reference Range Interpretation Comments Plav Effect Plt (test code = Plav 220 Effect Plt) [facility] [place] WorthLssxvnjNTNQQUHSRM9727-49-25 01:34:00 Test Item Value Reference Range Interpretation Comments ASA Effect Plt (test code = ASA Effect 540 Plt) [facility] [id number] 01:29:00 Test Item Value Reference Range Interpretation Comments CK MB (test code = CK MB) 0.9 0.5-3.6 [facility] [id number] 01:29:00 Test Item Value Reference Range Interpretation Comments CK MB Index (test 1.2 1 See_Comment [Automate d message] The code = CK MB Index) [facility] generated this result transmit timur reference range : <=2.5. The reference range was not used to interpr et this result as jasmyne l/abnormal. [facility]AC [id number] 01:29:00 Test Item Value Reference Range Interpretation Comments Troponin-T (test code no gt See_Comment [Auto mated message] The = Troponin-T) system which g enerated this result transmit timur reference range : <=0.100. The reference r fernando was not used to interpr et this result as jasmyne l/abnormal. [facility]AC [id number] 01:29:00 Test Item Value Reference Range Interpretation Comments Troponin-I (test code no gt See_Comment [Auto mated message] The = Troponin-I) system which g enerated this result transmit timur reference range : <=0.40. The reference r fernando was not used to interpr et this result as jasmyne l/abnormal. [facility] [id number] 01:29:00 Test Item Value Reference Range Interpretation Comments Total CK (test code = Total CK) 77 12-191 [facility] [employer] [id number] 01:29:00 Test Item Value Reference Range Interpretation Comments Lactic Acid Lvl (test code = Lactic 1.6 0.5-2.2 Acid Lvl) [facility] [employer] [id number] 01:29:00 Test Item Value Reference Range Interpretation Comments Osmolality (test code = Osmolality) 273 280-300 [facility] [employer]URINE AND [id number] 01:29:00 Test Item Value Reference Range Interpretation Comments UA Sq Epi (test code = UA Sq Epi) None Seen [facility] NetworkannURINE AND [id number] 01:29:00 Test Item Value Reference Range Interpretation Comments UA Urobilinogen (test code = UA <=1.0 mg/dL 0.1-1.0 Urobilinogen) [facility] AND [id number] 01:29:00 Test Item Value Reference Range Interpretation Comments UA Color (test code = Light Yellow UA Color) *NA*(02/05/18 8:29 PM) [facility] AND [id number] 01:29:00 Test Item Value Reference Range Interpretation Comments UA Spec Grav (test code = UA Spec 1.010 1 Grav) [facility] AND [id number] 01:29:00 Test Item Value Reference Range Interpretation Comments UA pH (test code = UA pH) 7.5 1 5.0-8.0 [facility] AND [id number] 01:29:00 Test Item Value Reference Range Interpretation Comments UA Turbidity (test code Slight *ABN*(02/05/18 = UA Turbidity) 8:29 PM) [facility] AND [id number] 01:29:00 Test Item Value Reference Range Interpretation Comments UA Glucose (test code = UA Glucose) 300 mg/dL [facility] AND [id number] 01:29:00 Test Item Value Reference Range Interpretation Comments UA Protein (test code = UA Protein) 100 mg/dL [facility] AND [id number] 01:29:00 Test Item Value Reference Range Interpretation Comments UA Ketones (test code = UA Ketones) 20 mg/dL [facility] AND [id number] 01:29:00 Test Item Value Reference Range Interpretation Comments UA Nitrite (test code Negative (02/05/18 8:29 = UA Nitrite) PM) [facility] AND [id number] 01:29:00 Test Item Value Reference Range Interpretation Comments UA WBC (test code = 1 See_Comment [Automa timur message] The UA WBC) system which ge nerated this result transmit timur reference range : <=5. The reference range was not used to interpr et this result as jasmyne l/abnormal. [facility] AND [id number] 01:29:00 Test Item Value Reference Range Interpretation Comments UA Leuk Est (test Negative (02/05/18 8:29 code = UA Leuk Est) PM) [facility] AND [id number] 01:29:00 Test Item Value Reference Range Interpretation Comments UA RBC (test code = 3 See_Comment [Automa timur message] The UA RBC) system which ge nerated this result transmit timur reference range : <=2. The reference range was not used to interpr et this result as jasmyne l/abnormal. [facility] AND [id number] 01:29:00 Test Item Value Reference Range Interpretation Comments UA Amorph Aliya (test code = UA Few /HPF Amorph Aliya) [facility] AND [id number] 01:29:00 Test Item Value Reference Range Interpretation Comments UA Mucus (test code = UA Mucus) Few /LPF [facility] AND [id number] 01:29:00 Test Item Value Reference Range Interpretation Comments UA Blood (test code = Negative (02/05/18 8:29 UA Blood) PM) [facility] AND [id number] 01:29:00 Test Item Value Reference Range Interpretation Comments UA Bili (test code = Negative *NA*(02/05/18 UA Bili) 8:29 PM) [facility] [id number] 01:29:00 Test Item Value Reference Range Interpretation Comments U Osmolality (test code = U Osmolality) 477 300-800 [facility]2018-05-29 01:29:00 Test Item Value Reference Range Interpretation Comments U Sodium (test code = U Sodium) [facility] [id number] 01:25:00 Test Item Value Reference Range Interpretation Comments FFP product (test code Product available = FFP product) (02/05/18 8:25 PM) [id number] 23:04:00 Test Item Value Reference Range Interpretation Comments ACT (TEG) Rapid (test code = ACT (TEG) 144 s 86-118 Rapid) [facility] [place] WorthIqonqvhSLIVTTTNMP1960-20-13 23:04:00 Test Item Value Reference Range Interpretation Comments Split Point Rapid (test code = Split 0.7 min Point Rapid) [facility] [place] WorthXsuustpUKYZWKGMHJ8500-04-84 23:04:00 Test Item Value Reference Range Interpretation Comments K-time Rapid (test code = K-time 0.9 min 0.6-2.3 Rapid) [facility] [place] WorthUksdcsfVJLZTBNIRW2169-87-61 23:04:00 Test Item Value Reference Range Interpretation Comments R-time Rapid (test code = R-time 1.0 min 0.4-0.7 Rapid) [facility] [place] WorthSxnfdrgKIDGKBUFXJ6451-06-14 23:04:00 Test Item Value Reference Range Interpretation Comments Max Amplitude Rapid (test code = Max 75 mm 52-71 Amplitude Rapid) [facility] [place] WorthBvjwicyZBXZFRRFBJ1439-38-29 23:04:00 Test Item Value Reference Range Interpretation Comments Angle Rapid (test code = Angle 76 degrees 64-80 Rapid) [facility] [place] WorthHnirhtrBKUAFWHLUJ3426-89-84 23:04:00 Test Item Value Reference Range Interpretation Comments G-value Rapid (test code = G-value 14.8 5.0-11.6 Rapid) [facility] [place] WorthSlftscuHYTBPIEHAJ3605-02-03 23:04:00 Test Item Value Reference Range Interpretation Comments Estimated % Lysis Rapid 0.0 See_Comment [Au tomated message] The (test code = Estimated syste m which generated % Lysis Rapid) this result t ransmitted reference range : <=7.5. The reference r fernando was not used to int erpret this result as normal/abnormal . [facility] [id number] 23:00:00 Test Item Value Reference Range Interpretation Comments ABO/Rh (test code = ABO/Rh) A POS [facility] [id number] 23:00:00 Test Item Value Reference Range Interpretation Comments Antibody Scrn (test Negative (02/05/18 6:00 code = Antibody Scrn) PM) [facility]
[2023-01-14 11:18] LABS: Absolute Lymphocytes (CBC) 2.3 K/uL (0.7-4.9); Hematocrit 38.7 % (36.0-45.0); Lymphocytes % 34.1 % (15.3-44.8); MCV 87.1 fL (80-100); MPV 8.3 fL (7.6-11.3); RBC Red Blood Cell Count 4.44 M/uL (3.86-4.86)
[2023-01-14 11:33] LABS: Specific Gravity 1.007 (1.005-1.030)
[2023-01-14 11:46] LABS: Barbiturates NEGATIVE (NEGATIVE); Benzodiazepines NEGATIVE (NEGATIVE); Cocaine NEGATIVE (NEGATIVE); METHAMPHETAM NEGATIVE (NEGATIVE); Methadone NEGATIVE (NEGATIVE); Opiates NEGATIVE (NEGATIVE); Phencyclidine NEGATIVE (NEGATIVE); THC Cannibis NEGATIVE (NEGATIVE)
--- NOTE | 2023-01-14 11:53 | RAD REPORT ---
EXAM DESCRIPTION: CT - CTHCSPWOC - 01/14/2023 11:25 am CLINICAL HISTORY: CONFUSED COMPARISON: Neck Angio dated 12/27/2022; Head C Spine Mpr Wo Con dated 10/10/2022; Head C Spine Mpr Wo Con dated 04/06/2020; Head Brain Wo Cont dated 01/03/2023; Neck Angio dated 01/03/2023 TECHNIQUE: Axial thin cut noncontrast CT images of the head were obtained. Axial thin cut noncontrast CT images of the cervical spine were obtained. Multiplanar reformatted images were generated and reviewed. All CT scans are performed using dose optimization technique as appropriate and may include automated exposure control or mA/KV adjustment according to patient size. FINDINGS: CT HEAD WITHOUT CONTRAST: No acute hemorrhage, hydrocephalus or extra-axial collection is identified. Stable mild central predo minant volume loss. Right basal ganglia focus of hypoattenuation, and other nonspecific periventricul ar and deep white matter hypodensities are stable. The bob-white matter differentiation otherwise ma intained.No areas of brain edema or midline shift. The paranasal sinuses and mastoids are clear.The calvarium is intact. CT CERVICAL SPINE WITHOUT CONTRAST: No fracture or subluxation.Multilevel degenerative changes, with anterolisthesis of C2 over C3, C3 ov er C4, and C4 over C5, with disc space narrowing and retrolisthesis of C4 over C5. Pronounced degener ative pannus at the C1-2 articulation. Appearance is stable.No prevertebral soft tissues swelling is identified. IMPRESSION: No acute traumatic intracranial or cervical spine findings. Stable chronic findings as above.
--- NOTE | 2023-01-14 12:39 | RAD REPORT ---
[facility] 11:47 am CLINICAL HISTORY: AMS COMPARISON: Chest Single View dated 07/25/2022; Chest Single View dated 07/06/2022; Chest Single Vie w dated 06/27/2022; Chest Single View dated 06/14/2022; Head C Spine Mpr Wo Con dated 01/14/2023; Neck A ngio dated 01/03/2023 TECHNIQUE: Portable AP view of the chest. FINDINGS: The lungs are clear. No pneumothorax or effusion. The mediastinal contours are stable, wit h tortuosity of the thoracic aorta. Appearance is stable. Left chest wall pacer/AICD in place. IMPRESSION: No acute cardiopulmonary process. Stable tortuosity of the thoracic aorta.
[2023-01-14 12:59] LABS: ALT/SGPT 19 U/L (13-56); AST/SGOT 14 U/L (15-37); Albumin 3.3 g/dL (3.4-5.0); Alkaline Phosphatase 67 U/L (45-117); BUN Blood Urea Nitrogen 11 mg/dL (7-18); Bicarbonate 27 mEq/L (21-32); Bilirubin Total 0.4 mg/dL (0.2-1.0); Glomerular Filtration Rate 79 ml/min (=/>90); Glucose Level 201 mg/dL (74-106); Magnesium 1.6 mg/dL (1.6-2.4); NT PRO-BNP 175 pg/mL (<450); Potassium 3.6 mEq/L (3.5-5.1); Protein, Total 6.7 g/dL (6.4-8.2); Sodium Level 137 mEq/L (136-145); Troponin High Sensitivity 7.8 pg/mL (<58.9)
[2023-01-14 13:08] LABS: Bilirubin Direct < 0.1 mg/dL (0-0.2)
[2023-01-14 13:29] LABS: Specific Gravity 1.007 (1.005-1.030); Urine Bacteria >50 /HPF (<20); Urine Bilirubin NEGATIVE (Negative); Urine Blood Negative (Negative); Urine Clarity Clear (Clear); Urine Color Colorless (Yellow); Urine Glucose NEGATIVE (Negative); Urine Mucus Slight /HPF (None Seen); Urine Protein NEGATIVE (Negative); Urine RBC <5 /HPF (None Seen); Urine Urobilinogen Normal (Normal); Urine WBC Clump Occasional /HPF (None Seen)
[2023-01-14] MEDS ORDERED: cloNIDine HCL 0.1 MG TAB ONE (14:15)
[2023-01-14] MEDS ORDERED: SMZ./TMP. 800/160 MG TABLET ONE (14:15)
--- NOTE | 2023-01-14 16:15 | ER ---
Nurse's Notes [facility] Name: Skylar Grossman Age: 87 yrs Sex: Female : 1935 Arrival Date: 01/14/2023 Time: 10:50 Bed 3 Private MD: Diagnosis: Urinary tract infection, weakness, confusion, altered mental status Presentation: 01/14 11:05 Chief complaint: EMS states: Found slumped over in wheelchair at home. R sided drift ll1 noticed. Slurred speech off/on. Slow to respond to questions, very lethargic. Last known well last night. VSS. 1st heart block. Coronavirus screen: Client denies travel out of the [place] in the last 14 days. At this time, the client does not indicate any symptoms associated with coronavirus-19. Ebola Screen: Patient denies travel to an Ebola-affected area in the 21 days before illness onset. Initial Sepsis Screen: Does the patient meet any 2 criteria? No. Patient's initial sepsis screen is negative. Does the patient have a suspected source of infection? No. Patient's initial sepsis screen is negative. Risk Assessment: Do you want to hurt yourself or someone else? Patient reports no desire to harm self or others. Onset of symptoms was January 13, 2023. 11:05 Method Of Arrival: EMS: [facility] ll1 11:05 Acuity: FARIDA 2 ll1 Triage Assessment: 11:10 General: Appears ill, Behavior is cooperative, appropriate for age, listless. General: ll1 Reports fatigue for. Pain: Denies pain. Neuro: Reports weakness very sleepy. Historical: - Allergies: 11:07 meperidine HCl; ll1 11:07 Codeine; ll1 11:10 Morphine; ll1 - PMHx: 11:07 Hypertensive disorder; Hypercholesterolemia; GERD; ll1 11:10 Cardiac pacemaker in situ; CVA; Dementia; Depression; Diabetes - IDDM; ll1 - PSHx: 11:10 Appendectomy; Cholecystectomy; Total abdominal hysterectomy; ll1 - Immunization history:: Adult Immunizations up to date. - Social history:: Smoking status: Patient denies any tobacco usage or history of. Screenin:[facility] ED Fall Risk Assessment (Adult) Score/Fall Risk Level 3 or more points = High hb Risk Oriented to surroundings, Maintained a safe environment. Abuse screen: Denies threats or abuse. Denies injuries from another. Nutritional screening: No deficits noted. Tuberculosis screening: No symptoms or risk factors identified. Assessment: 11:11 Reassessment: No changes from previously documented assessment. Patient and/or family ll1 updated on plan of care and expected duration. Pain level reassessed. Patient is alert, oriented x 3, equal unlabored respirations, skin warm/dry/pink. 11:45 Reassessment: No changes from previously documented assessment. Patient and/or family ll1 updated on plan of care and expected duration. Pain level reassessed. Patient is alert, oriented x 3, equal unlabored respirations, skin warm/dry/pink. 12:40 Reassessment: No changes from previously documented assessment. Patient and/or family ll1 updated on plan of care and expected duration. Pain level reassessed. Patient is alert, oriented x 3, equal unlabored respirations, skin warm/dry/pink. 13:09 Reassessment: No changes from previously documented assessment. Patient and/or family ll1 updated on plan of care and expected duration. Pain level reassessed. Patient is alert, oriented x 3, equal unlabored respirations, skin warm/dry/pink. 13:37 Reassessment: No changes from previously documented assessment. Dr. Rader at . ll1 14:02 Reassessment: No changes from previously documented assessment. Patient and/or family ll1 updated on plan of care and expected duration. Pain level reassessed. 14:45 Reassessment: No changes from previously documented assessment. given sprite to drink. ll1 15:44 Reassessment: No changes from previously documented assessment. Mariam Cotto (sister) ll1 Home: , . 16:55 Reassessment: Patient appears in no apparent distress at this time. No changes from hb previously documented assessment. Patient and/or family updated on plan of care and expected duration. Pain level reassessed. 17:34 Reassessment: No changes from previously documented assessment. Patient and/or family ll1 updated on plan of care and expected duration. Pain level reassessed. Patient is alert, oriented x 3, equal unlabored respirations, skin warm/dry/pink. 18:06 Reassessment: No changes from previously documented assessment. Patient and/or family ll1 updated on plan of care and expected duration. Pain level reassessed. Patient is alert, oriented x 3, equal unlabored respirations, skin warm/dry/pink. Vital Signs: 11:05 BP 155 / 80; Pulse 68; Resp 13; Pulse Ox 97% on R/A; Pain 0/10; ll1 11:07 Temp 98.3(O); hb 11:49 BP 118 / 62; Pulse 60; Resp 17; Pulse Ox 99% on R/A; ll1 12:40 BP 199 / 93; Pulse 60; Resp 13; Pulse Ox 97% on R/A; ll1 13:09 BP 189 / 96; Pulse 62; Resp 13; Pulse Ox 98% on R/A; ll1 14:02 BP 207 / 102; Pulse 63; Resp 18; Pulse Ox 96% on R/A; ll1 15:06 BP 177 / 84; Pulse 66; Resp 15; Pulse Ox 96% ; hb 15:26 BP 139 / 76; Pulse 72; Resp 15; Pulse Ox 97% ; hb 16:54 BP 129 / 72; Pulse 69; Resp 17; Pulse Ox 97% on R/A; hb 17:18 BP 146 / 82; Pulse 59; Resp 19; Pulse Ox 96% on R/A; ll1 18:07 BP 148 / 88; Pulse 62; Resp 18; Pulse Ox 96% ; ll1 11:05 Pain Scale: Adult ll1 ED Course: 10:50 Inserted saline lock: 22 gauge in right upper arm, using aseptic technique. Blood ll1 collected. 10:51 Patient arrived in ED. hb 10:52 Arm band placed on. hb 10:53 Vick Rader MD is Attending Physician. kdr 10:53 Patient has correct armband on for positive identification. Client placed on continuous hb cardiac and pulse oximetry monitoring. NIBP monitoring applied. 11:00 Shay cath inserted, using sterile technique, 16 Fr., by md, balloon inflated, to ll1 gravity drainage, urine specimen collected. 11:04 Doc French, JOSE EDUARDO is Primary Nurse. ll1 11:07 Triage completed. ll1 11:27 CT Head C Spine In Process Unspecified. EDMS 11:45 Urine Culture Sent. ll1 11:45 UDS Sent. ll1 11:48 XRAY Chest (1 view) In Process Unspecified. EDMS 13:21 Urinalysis w/ reflexes Sent. ll1 13:35 Urinalysis w/ reflexes Sent. ll1 16:14 Edwardo Angel MD is Hospitalizing Provider. kdr 17:26 No provider procedures requiring assistance completed. Patient admitted, IV remains in ll1 place. Administered Medications: 12:39 Not Given (Physician Discretion): Naloxone IVP 0.4 mg IVP once ll1 14:11 Drug: Trimethoprim-Sulfamethoxazole PO (160 mg-800 mg (DS) 1 tablet Route: PO; hb 16:24 Follow up: Response: No adverse reaction ll1 14:11 Drug: cloNIDine PO 0.2 mg Route: PO; hb 16:24 Follow up: Response: No adverse reaction ll1 16:24 Drug: Rocephin - Rocephin (cefTRIAXone) IVPB 1 grams Route: IVPB; Infused Over: 30 ll1 mins; Site: right antecubital; 17:32 Follow up: Response: No adverse reaction; IV Status: Completed infusion; IV Intake: [id number] Medication: 13:38 VIS not applicable for this client. ll1 Point of Care Testing: Blood Glucose: 10:52 Blood Glucose: 225 mg/dL; hb Ranges: Intake: 17:32 IV: 50ml; Total: 50ml. ll1 Output: 17:31 Urine: 1200ml (Shay); Total: 1200ml. ll1 Outcome: 16:15 Decision to Hospitalize by Provider. kdr 17:27 Condition: stable ll1 17:27 Instructed on the need for admit. 18:06 Admitted to Tele accompanied by [employer], via stretcher, room Room 401, with chart, Report ll1 called to Praveen Almazan RN 18:17 Patient left the ED. ll1 Signatures: Dispatcher [employer] EDMS Vick Rader MD MD kdr Elizabeth Gibbs RN RN hb Lewis, Lynsay, RN RN ll1 Corrections: (The following items were deleted from the chart) 11:10 11:07 PMHx: Diabetes mellitus; ll1 ll1 11:10 11:07 PSHx: Unable to Obtain; ll1 ll1 17:26 17:18 BP 138 / 71; ll1 ll1 18:07 18:06 Admitted to Tele accompanied by [employer], via stretcher, room Room 401, ll1 ll1
--- NOTE | 2023-01-14 16:15 | EDPHYS ---
Physician Documentation [facility] Name: Skylar Grossman Age: 87 yrs Sex: Female : 1935 Arrival Date: 01/14/2023 Time: 10:50 Bed 3 Private MD: ED Physician Vick Rader HPI: 01/14 15:04 This 87 yrs old Female presents to ER via EMS with complaints of Altered mental status. kdr 15:04 EMS was called by the patient's sister who the patient lives with for altered mental kdr status. Patient was also noted to be hypertensive. On initial evaluation the patient is very somnolent but arousable and responds to questions appropriately. She knows who she is where she is and how she arrived in the ED. She is very sleepy however. Onset: The symptoms/episode began/occurred today. Severity of symptoms: At their worst the symptoms were mild moderate just prior to arrival, in the emergency department the symptoms are unchanged. The patient has not experienced similar symptoms in the past. The patient has not recently seen a physician. Historical: - Allergies: 11:07 meperidine HCl; ll1 11:07 Codeine; ll1 11:10 Morphine; ll1 - PMHx: 11:07 Hypertensive disorder; Hypercholesterolemia; GERD; ll1 11:10 Cardiac pacemaker in situ; CVA; Dementia; Depression; Diabetes - IDDM; ll1 - PSHx: 11:10 Appendectomy; Cholecystectomy; Total abdominal hysterectomy; ll1 - Immunization history:: Adult Immunizations up to date. - Social history:: Smoking status: Patient denies any tobacco usage or history of. ROS: 15:04 Constitutional: Negative for fever, chills, and weight loss, Eyes: Negative for injury, kdr pain, redness, and discharge, ENT: Negative for injury, pain, and discharge, Neck: Negative for injury, pain, and swelling, Cardiovascular: Negative for chest pain, palpitations, and edema, Respiratory: Negative for shortness of breath, cough, wheezing, and pleuritic chest pain, Abdomen/GI: Negative for abdominal pain, nausea, vomiting, diarrhea, and constipation, Back: Negative for injury and pain, : Negative for injury, bleeding, discharge, and swelling, MS/Extremity: Negative for injury and deformity, Skin: Negative for injury, rash, and discoloration, Psych: Negative for depression, anxiety, suicide ideation, homicidal ideation, and hallucinations, Allergy/Immunology: Negative for hives, rash, and allergies, Endocrine: Negative for neck swelling, polydipsia, polyuria, polyphagia, and marked weight changes, Hematologic/Lymphatic: Negative for swollen nodes, abnormal bleeding, and unusual bruising. 15:04 Neuro: Positive for altered mental status, Negative for loss of consciousness, numbness, seizure activity, speech changes. Exam: 15:04 Constitutional: This is a well developed, well nourished patient who is sleepy but kdr arousable and in no acute distress. Head/Face: Normocephalic, atraumatic. Eyes: Pupils equal round and reactive to light, extra-ocular motions intact. Lids and lashes normal. Conjunctiva and sclera are non-icteric and not injected. Cornea within normal limits. Periorbital areas with no swelling, redness, or edema. Neck: Trachea midline, no thyromegaly or masses palpated, and no cervical lymphadenopathy. Supple, full range of motion without nuchal rigidity, or vertebral point tenderness. No Meningismus. Chest/axilla: Normal chest wall appearance and motion. Nontender with no deformity. No lesions are appreciated. Cardiovascular: Regular rate and rhythm with a normal S1 and S2. No gallops, murmurs, or rubs. Normal PMI, no JVD. No pulse deficits. Respiratory: Lungs have equal breath sounds bilaterally, clear to auscultation and percussion. No rales, rhonchi or wheezes noted. No increased work of breathing, no retractions or nasal flaring. Abdomen/GI: Soft, non-tender, with normal bowel sounds. No distension or tympany. No guarding or rebound. No evidence of tenderness throughout. Back: No spinal tenderness. No costovertebral tenderness. Full range of motion. Skin: Warm, dry with normal turgor. Normal color with no rashes, no lesions, and no evidence of cellulitis. MS/ Extremity: Pulses equal, no cyanosis. Neurovascular intact. Full, normal range of motion. Psych: Awake, alert, with orientation to person, place and time. Behavior, mood, and affect are within normal limits. 15:04 Neuro: Orientation: to person, place \T\ time. Mentation: inappropriate for stated age, slow to respond, Motor: moves all fours, Sensation: no obvious gross deficits. Vital Signs: 11:05 BP 155 / 80; Pulse 68; Resp 13; Pulse Ox 97% on R/A; Pain 0/10; ll1 11:07 Temp 98.3(O); hb 11:49 BP 118 / 62; Pulse 60; Resp 17; Pulse Ox 99% on R/A; ll1 12:40 BP 199 / 93; Pulse 60; Resp 13; Pulse Ox 97% on R/A; ll1 13:09 BP 189 / 96; Pulse 62; Resp 13; Pulse Ox 98% on R/A; ll1 14:02 BP 207 / 102; Pulse 63; Resp 18; Pulse Ox 96% on R/A; ll1 15:06 BP 177 / 84; Pulse 66; Resp 15; Pulse Ox 96% ; hb 15:26 BP 139 / 76; Pulse 72; Resp 15; Pulse Ox 97% ; hb 16:54 BP 129 / 72; Pulse 69; Resp 17; Pulse Ox 97% on R/A; hb 17:18 BP 146 / 82; Pulse 59; Resp 19; Pulse Ox 96% on R/A; ll1 18:07 BP 148 / 88; Pulse 62; Resp 18; Pulse Ox 96% ; ll1 11:05 Pain Scale: Adult ll1 MDM: 15:04 Data reviewed: vital signs, nurses notes, lab test result(s), radiologic studies. kdr 16:15 Patient medically screened. kdr 01/14 10:52 Order name: glucometer results - FOR PT WITH NO ID; Complete Time: 12:19 hb 01/14 10:55 Order name: Basic Metabolic Panel; Complete Time: 13:28 kdr 01/14 10:55 Order name: CBC with Diff; Complete Time: 12:19 kdr 01/14 10:55 Order name: LFT's; Complete Time: 13:28 kdr 01/14 10:55 Order name: Magnesium; Complete Time: 13:28 kdr 01/14 10:55 Order name: NT PRO-BNP; Complete Time: 13:28 kdr 01/14 10:55 Order name: Troponin HS; Complete Time: 13:28 kdr 01/14 10:55 Order name: Test, Urine; Complete Time: 12:19 kdr 01/14 10:55 Order name: UDS; Complete Time: 12:19 kdr 01/14 10:55 Order name: Urine Culture kdr 01/14 13:02 Order name: Urinalysis w/ reflexes; Complete Time: 13:57 kdr 01/14 16:22 Order name: Basic Metabolic Panel EDMS 01/14 16:22 Order name: Basic Metabolic Panel EDMS 01/14 16:22 Order name: CBC with Automated Diff EDMS 01/14 16:22 Order name: CBC with Automated Diff EDMS 01/14 10:55 Order name: XRAY Chest (1 view); Complete Time: 13:02 kdr 01/14 10:56 Order name: CT Head C Spine; Complete Time: 12:19 kdr 01/14 10:55 Order name: EKG; Complete Time: 10:56 kdr 01/14 16:22 Order name: Case Management Consult EDOH 01/14 16:22 Order name: Regular EDOH 01/14 10:55 Order name: Cardiac monitoring; Complete Time: 11:05 [facility] 01/14 10:55 Order name: EKG - Nurse/Tech; Complete Time: 11:28 [facility] 01/14 10:55 Order name: IV Saline Lock; Complete Time: 11:05 kdr 01/14 10:55 Order name: Labs collected and sent; Complete Time: 11:05 kdr 01/14 10:55 Order name: O2 Per Protocol; Complete Time: 11:05 [facility] 01/14 10:55 Order name: O2 Sat Monitoring; Complete Time: 11:05 [facility] 01/14 11:48 Order name: Labs - recollect needed; Complete Time: 11:48 01/14 12:01 Order name: Labs - recollect needed: Recollect of Recollect for CHEM; Complete Time: ss 12:30 Administered Medications: 12:39 Not Given (Physician Discretion): Naloxone IVP 0.4 mg IVP once ll1 14:11 Drug: Trimethoprim-Sulfamethoxazole PO (160 mg-800 mg (DS) 1 tablet Route: PO; hb 16:24 Follow up: Response: No adverse reaction ll1 14:11 Drug: cloNIDine PO 0.2 mg Route: PO; hb 16:24 Follow up: Response: No adverse reaction ll1 16:24 Drug: Rocephin - Rocephin (cefTRIAXone) IVPB 1 grams Route: IVPB; Infused Over: 30 ll1 mins; Site: right antecubital; 17:32 Follow up: Response: No adverse reaction; IV Status: Completed infusion; IV Intake: [id number] Point of Care Testing: Blood Glucose: 10:52 Blood Glucose: 225 mg/dL; hb Ranges: Critical Glucose Levels:Adult <50 mg/dl or >400 mg/dl <40 mg/dl or >180 mg/dl Disposition Summary: 01/14/23 16:15 Hospitalization Ordered Hospitalization Status: Observation kdr Provider: Edwardo Angel Location: Telemetry/MedSurg (observation) kdr Condition: Fair kdr Problem: new kdr Symptoms: have improved kdr Bed/Room Type: Standard kdr Room Assignment: 401(01/14/23 17:10) dw Diagnosis - Urinary tract infection, weakness, confusion, altered mental status kdr Forms: - Medication Reconciliation Form kdr - SBAR form kdr Signatures: Dispatcher [employer] Nicole Mccabe RN RN dw Vick Rader MD MD kdr Smirch, Shelby, RN RN ss Elizabeth Gibbs RN RN hb Lewis, Lynsay, RN RN ll1 Corrections: (The following items were deleted from the chart) 11:10 11:07 PMHx: Diabetes mellitus; ll1 ll1 11:10 11:07 PSHx: Unable to Obtain; ll1 ll1 17:10 16:15 kdr dw
[2023-01-14] MEDS ORDERED: CEFTRIAXONE 1000 MG/VIAL ONE (16:23)
[2023-01-14] MEDS ORDERED: NA CHLORIDE 0.9% 50 ML ONE (16:23)
[2023-01-14 18:35] VITALS: BMI 25.7
[2023-01-14] MEDS: CEFTRIAXONE 1,000 MG in NA CHLORIDE 0.9% 50 ML IVPB SCH (20:31)
[2023-01-14] MEDS: ACETAMINOPHEN 500 MG TAB PO PRN (21:48)
[2023-01-15 04:51] LABS: Absolute Lymphocytes (CBC) 1.8 K/uL (0.7-4.9); Hematocrit 33.6 % (36.0-45.0); Lymphocytes % 31.2 % (15.3-44.8); MPV 8.2 fL (7.6-11.3); RBC Red Blood Cell Count 3.91 M/uL (3.86-4.86)
[2023-01-15 05:03] LABS: Potassium 3.5 mEq/L (3.5-5.1)
[2023-01-15] MEDS: ACETAMINOPHEN 500 MG TAB PO PRN ×2 (08:21→16:23)
[2023-01-15] MEDS: CEFTRIAXONE 1,000 MG in NA CHLORIDE 0.9% 50 ML IVPB SCH ×2 (08:22→20:49)
[2023-01-15] MEDS: NEBIVOLOL HCL 5 MG TAB PO SCH (12:00)
[2023-01-15] MEDS: levETIRAcetam 500 MG TAB PO SCH ×2 (13:57→20:48)
[2023-01-15] MEDS: CLOPIDOGREL 75 MG TABLET PO SCH (13:57)
--- NOTE | 2023-01-15 16:22 | P.HP ---
Certification for Inpatient Patient admitted to: Observation Practitioner: I am a practitioner with admitting privileges, knowledge of patient current condition, hospital course, and medical plan of care. Services: Services provided to patient in accordance with Admission requirements found in Title 42 Section 412.3 of the Code of Federal Regulations Patient History Date of Service: 01/15/23 Reason for admission: GEN WEAK History of Present Illness: SWAPNA IS A PATIENT WITH SEVERE ORTHOSTASIS FOR LONG DURATION. SHE WALKS ONLY A FEW STEPS FROM BED TO WC, TO COMMODE ETC. SHE WAS DROPPED IN [place] DURING PT. SHE HAS HEADACHE AND NECK PAIN SINCE THEN. SISTER BROUGHT HER TO ER SHE CAN'T TAKE CARE OF HER ANY LONGER. SHE HAS NO NEW COMPLAINTS COMPARED TO A FEW DAYS AGO WHEN I SAW HER IN OFFICE. SHE HAS NO UTI SS AT ALL. Allergies codeine [Codeine] Adverse Reaction (Intermediate, Verified 07/23/19 22:37) HEADACHE/NAUSEATED meperidine HCl [From Demerol] Adverse Reaction (Intermediate, Verified 07/23/19 22:37) DIZZINESS/NAUSEA Home Medications: Amitriptyline HCl 100 mg PO BEDTIME 05/03/19 Clopidogrel Bisulfate [Plavix*] 75 mg PO DAILY 05/03/19 Fluoxetine HCl [Prozac] 20 mg PO DAILY 05/03/19 Gabapentin 300 mg PO TID 05/03/19 Lisinopril [Zestril] 20 mg PO BID 05/03/19 Nebivolol HCl [Bystolic*] 10 mg PO DAILY 02/02/21 Tamsulosin [Flomax*] 0.4 mg PO DAILY 02/02/21 Memantine HCl 10 mg PO BID 08/12/21 Levetiracetam [Keppra] 250 mg PO BID #60 07/26/22 Aspirin 81 mg PO DAILY 01/15/23 Metformin HCl [Glucophage] 500 mg PO BIDWM 01/15/23 Metoprolol Tartrate [Lopressor] 25 mg PO BID 01/15/23 Pantoprazole Sodium [Protonix] 40 mg PO DAILY 01/15/23 - Past Medical/Surgical History Has patient received pneumonia vaccine in the past: Yes Diabetic: Yes -: GERD -: Anxiety -: Hypertension -: CVA -: Depression -: IDDM -: Hyperlipidemia -: Cholecystectomy -: Hysterectomy -: Appendectomy - Family History Sister -: Cancer Notes: uterine Mother -: Hypertension Father -: Hypertension - Social History Smoking Status: Never smoker Alcohol use: No CD- Drugs: No Caffeine use: Yes Place of Residence: Home Review of Systems 10-point ROS is otherwise unremarkable General: Weakness Physical Examination - Vital Signs Temperature: 98.1 F Blood Pressure: 96/63 Pulse: 93 Respirations: 16 Pulse Ox (%): 95 - Physical Exam General: Alert, In no apparent distress HEENT: Atraumatic, PERRLA, Mucous membr. moist/pink, EOMI, Sclerae nonicteric Neck: Supple, 2+ carotid pulse no bruit, No LAD, Without JVD or thyroid abnormality Respiratory: Clear to auscultation bilaterally, Normal air movement Cardiovascular: Regular rate/rhythm, Normal S1 S2 Gastrointestinal: Normal bowel sounds, No tenderness Musculoskeletal: No tenderness Integumentary: No rashes Neurological: Normal speech, Normal strength at 5/5 x4 extr, Normal tone, Normal affect, Abnormal gait (UNSTEADY WHEN GETS UP. BP DROPPED FROM 180 LAYING TO 90 SYSTOLIC WHEN STANDING UP WHEN I ASKED NURSE TO CHECK. ) Lymphatics: No axilla or inguinal lymphadenopathy Assessment and Plan - Problems (Diagnosis) (1) Late effect of stroke Current Visit: Yes Status: Chronic Plan: HER ORTHOSTASIS IS FROM STROKES IN PAST. PT REFER TO REHAB. (2) Diabetes Onset Date: 08/18/15 Current Visit: No Status: Chronic Qualifiers: Diabetes mellitus type: type 2 (3) Orthostatic hypotension Current Visit: No Status: Chronic Plan: TRY MESTINON IT MAY WORK OFF LABEL USE. SHE CAN'T TAKE PROMATINE AND FLORINEF HER SUPINE BP IS ALREADY VERY HIGH. I HAVE ASKED HER NOT TO LAY DOWN FLAT IN PAST. SHE HAS TO SLEEP AT 45 DEG BP IS ABOUT 150 AT 45 DEG 90 ON STANDING UP. - Advance Directives Does patient have a Living Will: No Does patient have a Durable POA for Healthcare: No
[2023-01-15] MEDS: METFORMIN HCL 500 MG TAB PO SCH (16:23)
[2023-01-15] MEDS: ENOXAPARIN 40 MG/0.4 ML SQ SCH (16:23)
[2023-01-15] MEDS: GABAPENTIN 300 MG CAP PO SCH (20:48)
[2023-01-15] MEDS: MEMANTINE HCL 10 MG TABLET PO SCH (20:49)
[2023-01-15] MEDS: PYRIDOSTIGMINE 60 MG TABLET PO SCH (20:52)
[2023-01-15] MEDS: AMITRIPTYLINE 50 MG TAB PO SCH (20:53)
[2023-01-16] MEDS: CLOPIDOGREL 75 MG TABLET PO SCH (08:26)
[2023-01-16] MEDS: GABAPENTIN 300 MG CAP PO SCH ×3 (08:26→21:30)
[2023-01-16] MEDS: TAMSULOSIN 0.4 MG SR CAP PO SCH (08:26)
[2023-01-16] MEDS: NEBIVOLOL HCL 5 MG TAB PO SCH (08:26)
[2023-01-16] MEDS: PYRIDOSTIGMINE 60 MG TABLET PO SCH ×2 (08:27→21:30)
[2023-01-16] MEDS: MEMANTINE HCL 10 MG TABLET PO SCH ×2 (08:28→21:31)
[2023-01-16] MEDS: FLUOXETINE 20 MG CAP PO SCH (08:28)
[2023-01-16] MEDS: METFORMIN HCL 500 MG TAB PO SCH ×2 (08:28→16:05)
[2023-01-16] MEDS: levETIRAcetam 500 MG TAB PO SCH ×2 (08:28→21:31)
[2023-01-16] MEDS ORDERED: ASPIRIN 81 MG CHEWABLE TABLET PO SCH (09:00)
[2023-01-16] MEDS ORDERED: CLOPIDOGREL 75 MG TABLET PO SCH (09:00)
[2023-01-16] MEDS: ENOXAPARIN 40 MG/0.4 ML SQ SCH (16:05)
--- NOTE | 2023-01-16 17:12 | P.PN ---
Subjective Date of Service: 01/16/23 Chief Complaint: GEN WEAK Subjective: Improving SHE IS STABLE. HAS NO NEW ISSUES. WEAKNESS TO BE WORKED ON BY PT. Review of Systems 10-point ROS is otherwise unremarkable General: Weakness Physical Examination - Vital Signs Temperature: 97.6 F Blood Pressure: 134/77 Pulse: 82 Respirations: 16 Pulse Ox (%): 93 - Physical Exam General: Oriented x3, Mild distress, Obese HEENT: Atraumatic, PERRLA, EOMI Neck: Supple, JVD not distended Respiratory: Clear to auscultation bilaterally, Normal air movement Cardiovascular: Regular rate/rhythm, Normal S1 S2 Gastrointestinal: Normal bowel sounds, No tenderness Musculoskeletal: No tenderness Integumentary: No rashes Neurological: Normal speech, Normal tone, Normal affect Lymphatics: No axilla or inguinal lymphadenopathy - Studies Microbiology Data (last 24 hrs): 01/14/23 11:02 Catheterized Urine [place] Count - Final No growth. 01/14/23 11:02 Catheterized Urine - Final No growth. Medications List Reviewed: Yes Assessment And Plan - Current Problems (Diagnosis) (1) Late effect of stroke Current Visit: Yes Status: Chronic Plan: HER ORTHOSTASIS IS FROM STROKES IN PAST. PT REFER TO REHAB. (2) Diabetes Onset Date: 08/18/15 Current Visit: No Status: Chronic Qualifiers: Diabetes mellitus type: type 2 (3) Orthostatic hypotension Current Visit: No Status: Chronic Plan: TRY MESTINON IT MAY WORK OFF LABEL USE. SHE CAN'T TAKE PROMATINE AND FLORINEF HER SUPINE BP IS ALREADY VERY HIGH. I HAVE ASKED HER NOT TO LAY DOWN FLAT IN PAST. SHE HAS TO SLEEP AT 45 DEG BP IS ABOUT 150 AT 45 DEG 90 ON STANDING UP. DAILY BP CHECK WILL SEE HOW NEW MEDS WORK.
[2023-01-16] MEDS: AMITRIPTYLINE 50 MG TAB PO SCH (21:00)
--- NOTE | 2023-01-17 08:01 | EKG ---
Test Date: 2023-01-14 Test Time: 11:15:57 Interior Design Professor: HB MEASUREMENT RESULTS: Intervals: Rate: 61 RI: 256 QRSD: 132 QT: 530 QTc: 533 [place]: P: 88 RI: 256 QRS: 61 T: -23 INTERPRETIVE STATEMENTS: Atrial-paced rhythm with prolonged AV conduction Right bundle branch block Abnormal ECG Compared to ECG 12/27/2022 09:36:10 T-wave abnormality no longer present Possible ischemia no longer present Electronically Signed On 01-17-23 07:54:03 CDT by Chintan Lopez
[2023-01-17 08:48] VITALS: TEMP 96.8
[2023-01-17] MEDS: TAMSULOSIN 0.4 MG SR CAP PO SCH (09:29)
[2023-01-17] MEDS: CLOPIDOGREL 75 MG TABLET PO SCH (09:29)
[2023-01-17] MEDS: levETIRAcetam 500 MG TAB PO SCH (09:29)
[2023-01-17] MEDS: NEBIVOLOL HCL 5 MG TAB PO SCH (09:29)
[2023-01-17] MEDS: PYRIDOSTIGMINE 60 MG TABLET PO SCH (09:30)
[2023-01-17] MEDS: METFORMIN HCL 500 MG TAB PO SCH (09:30)
[2023-01-17] MEDS: FLUOXETINE 20 MG CAP PO SCH (09:30)
[2023-01-17] MEDS: MEMANTINE HCL 10 MG TABLET PO SCH (09:30)
[2023-01-17] MEDS: GABAPENTIN 300 MG CAP PO SCH ×2 (09:30→14:33)
[2023-01-17 12:45] VITALS: O2SAT 96
[2023-01-17 16:54] VITALS: BP 166/71
--- NOTE | 2023-01-17 21:34 | P.DS ---
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 SHE WALKS ONLY A FEW STEPS FROM BED TO , TO COMMODE ETC. SHE WAS DROPPED IN [place] DURING PT. SHE HAS HEADACHE AND NECK PAIN SINCE THEN. SISTER BROUGHT HER TO ER SHE CAN'T TAKE CARE OF HER ANY LONGER. SHE HAS NO NEW COMPLAINTS COMPARED TO A FEW DAYS AGO WHEN I SAW HER IN OFFICE. SHE HAS NO UTI SS AT ALL. Hospital Course: SISTER BROUGHT HER TO ER SHE WAS WEAK SINCE CALL IN [place]. SHE HAS BEEN THE SAME SINCE I SAW HER TWO DAYS AGO. WE FIND NOTHING NEW HERE. SHE IS ORTHOSTATIC USUAL FOR LONG DURATION. MESTINON TRIAL DID NOT HELP. SHE HAS NOT WALKED FOR YEARS. SHE TRANSFERS FROM BED TO AND NOT ABLE TO DO THAT WELL NOW. PT AND I RECOMMEND [place] BUT SHE REFUSES. SHE WILL HIRE HELP AT HOME AND DO PT WITH HOME HEALTH. THERE IS NO UTI. SHE HAS NO SYMPTOMS. THIS IS CALLED ASYMPTOMTIC BACTERURIA THAT DOES NOT NEED TREATMENT. Vital Signs/Physical Exam: Temp Pulse Resp BP Pulse Ox 96.8 F 76 18 166/71 H 93 01/17/23 16:00 01/17/23 16:00 01/17/23 16:00 01/17/23 16:00 01/17/23 16:00 General: Alert, In no apparent distress HEENT: Atraumatic, PERRLA, EOMI Neck: Supple, JVD not distended Respiratory: Clear to auscultation bilaterally, Normal air movement Cardiovascular: Regular rate/rhythm, Normal S1 S2 Gastrointestinal: Normal bowel sounds, No tenderness Musculoskeletal: No tenderness Integumentary: No rashes Neurological: Normal speech, Normal tone, Normal affect Lymphatics: No axilla or inguinal lymphadenopathy Laboratory Data at Discharge: WBC 5.80 thou/uL (4.3-10.9) 01/15/23 03:45 Hgb 11.4 g/dL (12.0-15.0) L D 01/15/23 03:45 Hct 33.6 % (36.0-45.0) L 01/15/23 03:45 Plt Count 223 thou/uL (152-406) 01/15/23 03:45 Sodium 139 mEq/L (136-145) 01/15/23 03:45 Potassium 3.5 mEq/L (3.5-5.1) 01/15/23 03:45 BUN 14 mg/dL (7-18) 01/15/23 03:45 Creatinine 0.75 mg/dL (0.55-1.02) 01/15/23 03:45 Glucose 146 mg/dL (74-106) H 01/15/23 03:45 Magnesium 1.6 mg/dL (1.6-2.4) 01/14/23 12:28 Total Bilirubin 0.4 mg/dL (0.2-1.0) 01/14/23 12:28 AST 14 U/L (15-37) L 01/14/23 12:28 ALT 19 U/L (13-56) 01/14/23 12:28 Alkaline Phosphatase 67 U/L (45-117) 01/14/23 12:28 Home Medications: Amitriptyline HCl 100 mg PO BEDTIME 05/03/19 Clopidogrel Bisulfate [Plavix*] 75 mg PO DAILY 05/03/19 Fluoxetine HCl [Prozac] 20 mg PO DAILY 05/03/19 Gabapentin 300 mg PO TID 05/03/19 Lisinopril [Zestril] 20 mg PO BID 05/03/19 Nebivolol HCl [Bystolic*] 10 mg PO DAILY 02/02/21 Tamsulosin [Flomax*] 0.4 mg PO DAILY 02/02/21 Memantine HCl 10 mg PO BID 08/12/21 Levetiracetam [Keppra] 250 mg PO BID #60 07/26/22 Aspirin 81 mg PO DAILY 01/15/23 Metformin HCl [Glucophage] 500 mg PO BIDWM 01/15/23 Metoprolol Tartrate [Lopressor] 25 mg PO BID 01/15/23 Pantoprazole Sodium [Protonix] 40 mg PO DAILY 01/15/23 Physician Discharge Instructions: PROBLEM: Weakness GOAL: Clear understanding of disease process INSTRUCTIONS: Ok to discharge home Follow up with Dr. Angel in 1-2 weeks Continue home medications Contact physician or return to ER for any complications or concerns Call [phone] for any questions regarding hospital stay Diet: Regular Activity: As tolerated [employer] Services Needed: Home Health with Physical Therapy Name of Company: [facility] Home Health Date or Referral: 01-17-23 IMMUNIZATION Influenza Vaccine Indicated: Influenza Vaccine Given: Date Given: Pneumonia Vaccine Indicated: No Pneumonia Vaccine Given: Date Given: Followup: Edwardo Angel MD [ACTIVE - CAN ADMIT] - 1-2 Weeks
== END 2023-01-17 18:15 | disposition home health service (06) | DRG 948 ==
LOC: ER 10:50 → ERHOLD 16:18 → 4TH 17:21 → OBSVTOIN 01-16 09:38
PROVIDERS: ADMIT Internal Medicine; ATTEND Internal Medicine
DX: R53.1 Weakness (principal); I95.1 Orthostatic hypotension; I10 Essential (primary) hypertension; E11.9 Type 2 diabetes mellitus without complications; I69.398 Other sequelae of cerebral infarction; K21.9 Gastro-esophageal reflux disease without esophagitis; E78.00 Pure hypercholesterolemia, unspecified; E66.9 Obesity, unspecified; R82.71 Bacteriuria; Z88.8 Allergy status to other drugs, medicaments and biological substances; Z95.0 Presence of cardiac pacemaker; Z88.5 Allergy status to narcotic agent; Z90.49 Acquired absence of other specified parts of digestive tract; Z68.25 Body mass index [BMI] 25.0-25.9, adult; Z79.84 Long term (current) use of oral hypoglycemic drugs; Z79.82 Long term (current) use of aspirin; Z79.02 Long term (current) use of antithrombotics/antiplatelets; Z90.710 Acquired absence of both cervix and uterus; Z79.899 Other long term (current) drug therapy
CPT/HCPCS: 36415; 51702; 70450; 71045; 72125; 80048; 80076; 80307; 81001; 81025; 82384; 82947; 83735; 83835; 83880; 84145; 84484; 85025; 87086; 87088; 93005; 96365; 97161; 97530; 99285; G0378; J0696; J1650; J2310

== ENCOUNTER 2023-01-21 20:12 | Emergency (ER) | payer OTHER ==
--- OUTSIDE RECORDS SUMMARY | 2023-01-21 20:30 | XMS REPORT | Continuity of Care Document ---
:[address] [facility] t Address [address] [facility] [address] [place] [address] Care Team Providers Name Role Phone No MD, Pcp [facility] Primary Care Physician Unavailable JUAQUIN MCINTYRE Attending Clinician Unavailable HARINI BETANCOURT Attending Clinician Unavailable HARINI BETANCOURT Attending Clinician Unavailable GILBERT WINSTON Attending Clinician Unavailable Inez Hylton MD Attending Clinician INEZ HYLTON Attending Clinician Unavailable Doctor Unassigned, [place] Attending Clinician Unavailable JARVIS MILLIGAN Attending Clinician Unavailable Liza Zarco Attending Clinician Raul Rosen MD Attending Clinician Jarvis Milligan MD Attending Clinician CASSIUS PINK Attending Clinician Unavailable DAYAMI LOVE Attending Clinician Unavailable Dayami Whitman Attending Clinician [phone] Pob, [facility] Main Attending Clinician Unavailable Colleen WHITT, Jamil Reeder Attending Clinician Unavailable ACACIA DEL TORO Attending Clinician Unavailable Srinath Cohen DO Attending Clinician Acacia Del Toro MD Attending Clinician Medhat GABRIEL, Ca Arias Attending Clinician Therapy, [facility] Covid Attending Clinician Unavailable Unknown, Attending Attending Clinician Unavailable UNKNOWN, ATTENDING Attending Clinician Unavailable Marciano WHITT, Paco Alejandra Attending Clinician Unavailable Only, Kevin Db Test Attending Clinician Unavailable Pavan ONLINE CONTENT DEVELOPER, Jud Attending Clinician JUD CHUA Attending Clinician [...] Date S dianelys MEDICARE PART A AND [id number] 1998 B 00:00:00 MEDICARE A B [id number] 1998 00:00:00 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 2-14 it y of 00:00: [place] [address] Medical Branch At high At high Disease Active Univers risk for risk for 2-14 ity of seizures seizures 00:00: [place] [address] Medical Branch SUBDURAL SUBDURAL Diagnosis Active 2022-10-10 Memoria RADHA RADHA 10-10 12:36:00 l Active 00:00: Austyn 10/10/2022 00 [facility] TS TSDH Diagnosis Active 2022-10-11 Mem oria Active 10-10 12:26:00 l 10/10/2022 00:00: Jax sosa [facility] 00 Medical Center Sick sinus Sick sinus Disease Active U nivers syndrome syndrome 10-07 ity of 00:00: [place] 00 Medical Branch Symptomati Symptomati Disease Active U nivers c c 10-06 ity of bradycardi bradycardi [place] 00 [place] Sinus Sinus Disease Active Overview: Univer s pause pause 09-13 Formattin ity of 00:00: g of this note Medical might be Branch different from the original. Added automatic ally from request for surgery [id number] Syncope Syncope Disease Active Overview: Univ ers and and 09-13 Formattin ity of collapse collapse 00:00: g of this [place] 00 note Medical might be Branch different from the original. 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 U nivers [...] Added automatic ally from request for surgery [id number] Acute Acute Disease Active [facility] encephalop 7-16 [facility] k[facility] athy athy 00:[facility]: [facility] Center Vasovagal Vasovagal Disease Active [facility] Colitis Colitis Disease [facility] Syncope Syncope Disease Active 2019- [facility] SDH SDH Diagnosis Active 2018-02-26 Mem oria Active 02-18 12:06:00 l 02/18/2018 00:00: Jax RAHMAN [place] 00 [facility] FALL/ FALL/ Diagnosis Active 2018-02-19 Mem oria INTRAVENTR INTRAVENTR 02-18 04:32:00 l ICULAR ICULAR 00:00: [place] HEMORRHAGE HEMORRHAGE 00 VS SDH VS SDH Active 02/18/2018 [facility] ACUTE SDH ACUTE SDH Diagnosis Active 2018-02-16 Memoria Active 02-05 22:05:00 l 02/05/2018 00:00: Jax sosa [address] Pain in Pain in Disease Active Overview: Univ ers limb limb 12-04 Formattin ity of 00:00: g of this [place] 00 note Medical might be Branch different [...] of and and 00:00: g of this [place] radiculiti radiculiti 00 note Me dical s, s, might be Branch unspecifie unspecifie different d d from the original. Cervical radiculop athy Osteoarthr Osteoarthr Disease Active Overview : Univers itis itis 12-04 Formattin ity of 00:00: g of this [place] 00 note Medical might be Branch different from the original. 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 Hypertensi Hypertens Problem Resolve 2018-10-22 Memoria ve sudeep d 15:27:05 l disorder, disorder, Herm roxanne systemic systemic arterial arterial (disorder) (disorder) Resolved Problem 10/22/2018 [facility] NONTRAUMAT NONTRAUMA Diagnosis Active 2018-02-16 Memoria IC ACUTE TIC ACUTE 22:05:00 l SUBDURAL SUBDURAL Jax n HEMORRHAGE HEMORRHAGE Active [facility] NONTRAUMAT Diagnosis Active 2018-02-26 Memoria IC CHRONIC NONTRAUMAT 12:06:00 l SUBDURAL IC CHRONIC Herm roxanne HEMORRHAGE SUBDURAL HEMORRHAGE Active [facility] FALL FALL Diagnosis Active 2018-02-19 Mem oria Active 03:11:00 l [facility] TRAUM TRAUM Diagnosis Active 2022-10-11 [facility] oria SUBDR HEM SUBDR HEM 12:26:00 l WITH LOC WITH LOC Jax n STATUS STATUS UNKNOWN, UNKNOWN, Active [facility] Allergies, Adverse Reactions, Alerts Allergy Allergy Status Severity Reaction(s) Onset Inactive Treating Comm ents Source Name Type Date Date Clinician CODEINE Allergy Active 2020-[address] [facility] 00:[facility]: Medical 00 [place] MEPERIDI Allergy Active 2020-[address] [facility] [facility] 00[facility]: Medical 00 [place] MORPHINE Allergy Active 2020-[address] 7[facility] [...] NE HCL INGREDI 3-10 ity of 00:00: [place] [address] Medical Branch Meperidi Propensi Active Unknown - [...] ALLERGIE S codeine codeine Active Memoria l [place] Demerol Demerol Active Memoria HCl HCl l [place] Family History Family Member Diagnosis Comments Start Date Stop Date Source Natural father High blood pressure [facility] Social History Social Habit Start Date Stop Date Quantity Comments Source History SDOH Social Unive rsity of Connections [facility] Med ical Together Branch History SDOH Social Unive rsity of Connections [facility] Medical Branch History SDOH Social Unive rsity of Connections [place] Medical Membership Branch History SDOH Social Unive rsity of Connections [place] Medical Meetings Branch History SDOH [facility] [...] 5 University o f Financial 00:00:00 00:00:00 [place] [facility] Branch History SDOH Food 2022-10-25 2022-10-25 1 Univers ity of Worry 00:00:00 00:00:00 [place] [facility] Branch History SDOH Food 2022-10-25 2022-10-25 1 Univers ity of Scarcity 00:00:00 00:00:00 [place] Medical [place] Tobacco use and 2022-08-03 2022-08-03 Smokeless Universit y of exposure 00:00:00 00:00:00 tobacco non-user [facility] dical Branch History [facility] 2020-03-27 2020-03-[address] [facility] Alcohol Frequency 00:00:00 00:00:00 [facility] Alcohol intake 2020-03-26 2020-03-[address] [facility] 00:00:00 00:00:00 non-drinker of Medical Ce nter alcohol (finding) Social History 2018-02-19 2018-02-19 [facility] 11:13:34 11:13:34 Sex Assigned At [address] [facility] kes 00:00:00 00:00:00 [facility] Smoking Status Start Date Stop Date Source Never smoked tobacco [facility] Medications Ordered Filled Start Stop Current Ordering Indication Dosage Frequency Signature Comments Components Source Medication Medication Date Date Medication? Clinician (SIG) Name Name amLODIPine Yes 5mg Take 5 mg [place] 5 mg tablet 2-21 by mouth ity of 17:33: at [place] [address] bedtime. Medical Branch aspirin 81 2022-0 Yes 81mg Take 81 mg U nivers mg EC 2-21 by mouth ity of tablet 17:33: in the [place] [address] morning. Medical Branch lisinopriL 2022-0 Yes 20mg Take 20 mg U nivers 20 mg 2-21 by mouth ity of tablet 17:33: in the [place] [address] morning Medical and 20 mg Branch in the evening. metFORMIN 2022-0 Yes 500mg Take 500 Uni vers 500 mg 2-21 mg by ity of tablet 17:33: mouth in [place] [address] the Medical morning Branch and 500 mg in the evening. Take with meals. pantoprazol 2022-0 Yes 40mg Take 40 mg Univers e 2-21 by mouth ity of (PROTONIX) 17:33: in the [place] 20 mg EC 53 morning. Medical tablet Branch tamsulosin 2022-0 Yes Take by [facility] ers (FLOMAX) 2-21 mouth ity of 0.4 mg 24 17:33: daily. [place] hr capsule 53 Medical Branch FLUoxetine 2022-0 Yes 20mg Take 20 mg U nivers 20 mg 2-21 by mouth ity of capsule 17:33: in the [place] [address] morning. Medical Branch gabapentin 2022-0 Yes 300mg Take 300 Un teo 300 mg 2-21 mg by ity of capsule 17:33: mouth 2 [place] 53 (two) Medical times Branch daily as needed. memantine 2022-0 Yes 10mg Take 10 mg Un teo 10 mg 2-21 by mouth ity of tablet 17:33: in the [place] [address] morning Medical and 10 mg Branch in the evening. simvastatin 2022-0 Yes 20mg Take 20 mg Univers 20 mg 2-21 by mouth ity of tablet 17:33: at [place] [address] bedtime. Medical Branch amLODIPine 2022-0 Yes 5mg Take 5 mg Un teo 5 mg tablet 2-21 by mouth ity of 17:33: at [place] [address] bedtime. Medical Branch aspirin 81 2022-0 Yes 81mg Take 81 mg U nivers mg EC 2-21 by mouth ity of tablet 17:33: in the [place] [address] morning. Medical Branch lisinopriL 2022-0 Yes 20mg Take 20 mg U nivers 20 mg 2-21 by mouth ity of tablet 17:33: in the [place] [address] morning Medical and 20 mg Branch in the evening. metFORMIN 2022-0 Yes 500mg Take 500 Uni vers 500 mg 2-21 mg by ity of tablet 17:33: mouth in [place] [address] the Medical morning Branch and 500 mg in the evening. Take with meals. pantoprazol 2022-0 Yes 40mg Take 40 mg Univers e 2-21 by mouth ity of (PROTONIX) 17:33: in the [place] 20 mg EC 53 morning. Medical tablet Branch tamsulosin 2022-0 Yes Take by [facility] ers (FLOMAX) 2-21 mouth ity of 0.4 mg 24 17:33: daily. [place] hr capsule 53 Medical Branch FLUoxetine 2022-0 Yes 20mg Take 20 mg U nivers 20 mg 2-21 by mouth ity of capsule 17:33: in the [place] [address] morning. Medical Branch gabapentin 2023-0 Yes 300mg Take 300 Un teo 300 mg 2-21 mg by ity of capsule 17:33: mouth 2 [place] [address] (two) Medical times Branch daily as needed. memantine 2023-0 Yes 10mg Take 10 mg Un teo 10 mg 2-21 by mouth ity of tablet 17:33: in the [place] [address] morning Medical and 10 mg Branch in the evening. simvastatin 2023-0 Yes 20mg Take 20 mg Univers 20 mg 2-21 by mouth ity of tablet 17:33: at [place] [address] bedtime. Medical Branch amLODIPine 2023-0 Yes 5mg Take 5 mg Un teo 5 mg tablet 2-21 by mouth ity of 17:33: at [place] [address] bedtime. Medical Branch aspirin 81 3-0 Yes 81mg Take 81 mg U nivers mg EC 2-21 by mouth ity of tablet 17:33: in the [place] [address] morning. Medical Branch lisinopriL 3-0 Yes 20mg Take 20 mg U nivers 20 mg 2-21 by mouth ity of tablet 17:33: in the [place] [address] morning Medical and 20 mg Branch in the evening. metFORMIN 2023-0 Yes 500mg Take 500 Uni vers 500 mg 2-21 mg by ity of tablet 17:33: mouth in [place] [address] the Medical morning Branch and 500 mg in the evening. Take with meals. pantoprazol 3-0 Yes 40mg Take 40 mg Univers e 2-21 by mouth ity of (PROTONIX) 17:33: in the [place] 20 mg EC morning. Medical tablet Branch tamsulosin 2022-0 Yes Take by [facility] ers (FLOMAX) 2-21 mouth ity of 0.4 mg 24 17:33: daily. [place] hr capsule 53 Medical Branch FLUoxetine 3-0 Yes 20mg Take 20 mg U nivers 20 mg 2-21 by mouth ity of capsule 17:33: in the [place] [address] morning. Medical Branch gabapentin 3-0 Yes 300mg Take 300 Un teo 300 mg 2-21 mg by ity of capsule 17:33: mouth 2 [place] [address] (two) Medical times Branch daily as needed. memantine 2023-0 Yes 10mg Take 10 mg Un teo 10 mg 2-21 by mouth ity of tablet 17:33: in the [place] [address] morning Medical and 10 mg Branch in the evening. simvastatin 2022-0 Yes 20mg Take 20 mg Univers 20 mg 2-21 by mouth ity of tablet 17:33: at [place] [address] bedtime. Medical Branch amLODIPine 2022-0 Yes 5mg Take 5 mg Un teo 5 mg tablet 2-21 by mouth ity of 17:33: at [place] [address] bedtime. Medical Branch aspirin 81 2022-0 Yes 81mg Take 81 mg U nivers mg EC 2-21 by mouth ity of tablet 17:33: in the [place] [address] morning. Medical Branch lisinopriL 2022-0 Yes 20mg Take 20 mg U nivers 20 mg 2-21 by mouth ity of tablet 17:33: in the [place] [address] morning Medical and 20 mg Branch in the evening. metFORMIN 2022-0 Yes 500mg Take 500 Uni vers 500 mg 2-21 mg by ity of tablet 17:33: mouth in [place] [address] the Medical morning Branch and 500 mg in the evening. Take with meals. pantoprazol 2022-0 Yes 40mg Take 40 mg Univers e 2-21 by mouth ity of (PROTONIX) 17:33: in the [place] 20 mg EC morning. Medical tablet Branch tamsulosin 2022-0 Yes Take by [facility] ers (FLOMAX) 2-21 mouth ity of 0.4 mg 24 17:33: daily. [place] hr capsule Medical Branch FLUoxetine 2022-0 Yes 20mg Take 20 mg U nivers 20 mg 2-21 by mouth ity of capsule 17:33: in the [place] [address] morning. Medical Branch gabapentin 2022-0 Yes 300mg Take 300 Un teo 300 mg 2-21 mg by ity of capsule 17:33: mouth 2 [place] [address] (two) Medical times Branch daily as needed. memantine 2022-0 Yes 10mg Take 10 mg Un teo 10 mg 2-21 by mouth ity of tablet 17:33: in the [place] [address] morning Medical and 10 mg Branch in the evening. simvastatin 2022-0 Yes 20mg Take 20 mg Univers 20 mg 2-21 by mouth ity of tablet 17:33: at [place] [address] bedtime. Medical Branch levETIRAcet 2022-0 2023- No 250mg Take 250 Univers am (KEPPRA) 2-21 02-21 mg by ity of 250 mg 13:41: 00:00 mouth in [place] tablet 41 :00 the [facility] and 250 mg in the evening. levETIRAcet 2022- Yes [id number] 500mg Take 1 Univers am 500 mg 11-01 tablet by ity of tablet 00:00: 04:59 mouth in [place] 00 :00 the [facility] and 1 tablet in the evening. Do all this for 90 days. levETIRAcet 2022- Yes [id number] 500mg Take 1 Univers am 500 mg 11-01 tablet by ity of tablet 00:00: 04:59 mouth in [place] 00 :00 [facility] and 1 tablet in the evening. Do all this for 90 days. levETIRAcet 2022- Yes [id number] 500mg Take 1 Univers am 500 mg 11-01 tablet by ity of tablet 00:00: 04:59 mouth in [place] 00 :00 [facility] and 1 tablet in the evening. Do all this for 90 days. levETIRAcet 2022- Yes [id number] 500mg Take 1 Univers am 500 mg 11-01 tablet by ity of tablet 00:00: 04:59 mouth in [place] 00 :00 [facility] and 1 tablet in the evening. Do all this for 90 days. levETIRAcet Yes 500mg 500 mg, Un teo am (KEPPRA) 2-20 Oral, BID, it y of tablet 500 02:00: First dose [place] mg 00 on [facility] 10/30/22 at Branch 1999, Until Discontinu ed, Routine morpHINE (2 Yes 2mg 2 mg, Slow Univers mg/mL) 2-17 IV Push, ity of injection 2 02:52: Q4HPRN, [place] mg 02 Starting Medical on [facility] Branch 10/27/22 at 2051, Until Discontinu ed, Routine, Pain (scale 7-10) heparin Yes 5000U 5,000 Univers (porcine) 2-16 Units, ity of injection 20:00: Subcutaneo [place] 5,000 Units 00 us, Q8H, Medi joyce First dose Branch on [facility] 10/27/22 at 1400, Until Discontinu ed, Routine metoprolol 2023-0 Yes 25mg 25 mg, Unive rs tartrate 2-16 Oral, BID, ity o f (LOPRESSOR) 02:00: First dose [place] tablet 25 00 on 10/26/22 at Branch 2000, Until Discontinu ed, Routine metoprolol 2022-2022- Yes [id number] 25mg Take 1 Univers tartrate 25 2-16 -19 tablet by it y of mg tablet 00:00: 04:59 mouth in [place] 00 :00 the [facility] and 1 tablet in the evening. Do all this for 30 days. metoprolol 2022-0 2022- Yes [id number] 25mg Take 1 Univers tartrate 25 2-16 -19 tablet by it y of mg tablet 00:00: 04:59 mouth in [place] 00 :00 the [facility] morning Branch and 1 tablet in the evening. Do all this for 30 days. metoprolol 2022-0 2022- Yes [id number] 25mg Take 1 Univers tartrate 25 2-16 -19 tablet by it y of mg tablet 00:00: 04:59 mouth in [place] 00 :00 the [facility] and 1 tablet in the evening. Do all this for 30 days. KCL 2022-2022- No 40meq 40 mEq, Univers (KLOR-CON 10-26- Oral, ity of M20) tablet 05:45: 05:18 ONCE, 1 [place] 40 mEq 00 :00 dose, On [facility] 10/25/22 at 2345, Routine magnesium 2022- No [...] dose [place] mg 00 on Mon [facility] 10/25/22 at Branch 2100, Until Discontinu ed, Routine amLODIPine 2022-0 Yes 5mg 5 mg, Univer s (NORVASC) 2-15 Oral, QHS, ity of tablet 5 mg 03:00: First dose [place] 00 on [facility] 10/25/22 at Branch 2100, Until Discontinu ed, Routine phytonadion 2022-0 2023- No 10mg IV Unive rs e (VITAMIN 2-14 10-25 Piggyback, it y of K) 10 mg in 16:45: 18:08 ONCE, 1 [place] NaCl 0.9% 00 :00 dose, On Medica l (NS) [facility] piggyback 10/25/22 at 1045, 50 mL NaCl 0.9% 2022-0 Yes 1000mL at 75 Unive rs (NS) IV 2-14 mL/hr, IV ity of infusion 16:00: Infusion, [place] 1,000 mL 00 CONTINUOUS Medic al , Starting Branch on 10/25/22 at 1000, Until Discontinu ed, Routine NaCl 0.9% 2022-0 Yes 10mL 10 mL, Univer s (NS) 2-14 Slow IV ity of injection 15:49: Push, PRN, [place] 10 mL 01 Starting Medical on [facility] 10/25/22 at 0949, Until Discontinu ed, Routine, line maintenanc e lidocaine 2022-0 Yes 5mL 5 mL, Univers 1% (PF) -14 Subcutaneo ity of (XYLOCAINE) 15:49: us, PRN, [place] injection 5 01 Starting Medi joyce mL on [facility] 10/25/22 at 0949, Until Discontinu ed, Routine, Local anesthesia tamsulosin 2022-0 Yes .4mg 0.4 mg, Univ ers (FLOMAX) 2-14 Oral, ity of capsule 0.4 15:00: DAILY, [place] mg 00 First dose Medical on [facility] 10/25/22 at 0900, Until Discontinu ed, Routine pantoprazol 2022-0 Yes 40mg 40 mg, Univ ers e 2-14 Oral, ity of (PROTONIX) 15:00: DAILY, [place] EC tablet 00 First dose Medi joyce 40 mg on [facility] 10/25/22 at 0900, Until Discontinu ed, Routine FLUoxetine 2022-0 Yes 20mg 20 mg, Unive rs (PROZAC) 2-14 Oral, ity of capsule 20 15:00: DAILY, [place] mg 00 First dose Medical on [facility] 10/25/22 at 0900, Until Discontinu ed, Routine metFORMIN Yes 500mg 500 mg, Univ ers (GLUCOPHAGE 2-14 Oral, BID ity of ) tablet 14:00: MEALS, [place] 500 mg 00 First dose Medical on [facility] 10/25/22 at 0800, Until Discontinu ed, Routine memantine Yes 10mg 10 mg, Univer s (NAMENDA) 2-14 Oral, BID, ity of tablet 10 14:00: First dose [place] mg 00 on [facility] 10/25/22 at Branch 0800, Until Discontinu ed, Routine
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 Restricted medication : JARVIS MILLIGAN lisinopriL Yes 20mg 20 mg, Unive rs (PRINIVIL,Z 2-14 Oral, BID, it y of ESTRIL) 14:00: First dose [place] tablet 20 00 on [facility] mg 10/25/22 at Branch 0800, Until Discontinu ed, Routine gabapentin Yes 200mg 200 mg, Uni vers (NEURONTIN) 2-14 Oral, TID, it y of capsule 200 14:00: First dose [place] mg 00 on [facility] 10/25/22 at Branch 0800, Until Discontinu ed, Routine levETIRAcet 2022- No 500mg 500 mg, IV Univers am (KEPPRA) 10-2520 Piggyback, i ty of in NACL 14:00: 01:39 Q12H, [place] (ISO-OS) 00 :32 First dose Medic al 500 mg/100 on [facility] mL RTU 10/25/22 at 0800, Until Discontinu ed, Administer over 15 Minutes, 100 mL carvediloL 2022- No 6.25mg 6.25 mg, Univers (COREG) 10-25-15 Oral, BID ity of tablet 6.25 14:00: 21:58 MEALS, [place] mg 00 :13 First dose Medical on [facility] 10/25/22 at 0800, Until Discontinu ed, Routine Sliding Yes Subcutaneo Univ ers Scale 2-14 us, AC+HS, ity of Insulin-Reg 13:30: First dose [place] ular + Fsbg 00 on Mon Medica l Testing 10/25/22 at Branch 0730, Until Discontinu ed, Routine iopamidol 2022- No [id number] 80mL 80 mL, U nivers (ISOVUE -14 02-14 Intravenou ity o f 370-500 mL) [...] at 0400, Until Discontinu ed, Routine niCARdipine Yes 2.5mg/h 2.5-15 U nivers (CARDENE 2-14 [...] Until Discontinu ed, Routine, Constipati on dextrose Yes 250mL 250 mL, IV Un teo 10% (D10W) 2-14 Infusion, ity of bolus 07:07: PRN - SEE [place] infusion 04 INSTRUCTIO Medic al 250 mL [...] glucose is < 80 mg/dL, repeat.
glucagon 2022-0 Yes 1mg 1 mg, Univers (GLUCAGEN 2-14 Intramuscu ity of DIAGNOSTIC 07:07: lar, PRN, [place] KIT) 00 Starting Medical injection 1 on Mon [facility] 10/25/22 at 0107, Until Discontinu ed, YOKO, Blood Glucose < or = 70 mg/dL and patient is NPO, unable to swallow or has mental changes. hydralAZINE 2022-0 Yes 10mg 10 mg, Univ ers (APRESOLINE 2-14 Slow IV ity o f ) injection 07:01: Push, [place] 10 mg 01 Q2HPRN, Medical Starting Branch on Mon10/25/22 at 0101, Until Discontinu ed, YOKO, DBP=>100; SBP=>160 labetaloL 2022-0 Yes 20mg 20 mg, Univer s (NORMODYNE) 2-14 Slow IV ity o f injection 07:00: Push, [place] 20 mg 59 Q15MIN Medical PRN, Branch Starting on Mon10/25/22 at 0100, Until Discontinu ed, Routine, Hyertensio n: BP parameters SBP > 160, HOLD for HR < 70 ondansetron 2022-0 Yes 4mg 4 mg, Slow Univers (ZOFRAN 2-14 IV Push, ity of (PF)) 06:56: Q6HPRN, [place] injection 4 23 Starting Medi joyce mg on [facility] 10/25/22 at 0056, Until Discontinu ed, Routine, Nausea and Vomiting (N/V) acetaminoph 2022-0 Yes 650mg 650 mg, Un teo en 10-25 Oral, ity of (TYLENOL) 06:55: Q6HPRN, [place] tablet 650 49 Starting Medic al mg on [facility] 10/25/22 at 0055, Until Discontinu ed, Routine, Pain (scale 1-3) cefTRIAXone 2022-0 2023- No 1000mg 1,000 mg, Univers (ROCEPHIN) 10-25 IV ity of 1,000 mg in 01:00: 01:42 Piggyback, [place] NaCl 0.9% 00 :00 ONCE, 1 Medical (NS) 50 mL dose, On [facility] MINI-BAG [place] [facility] 10/24/22 at 1900, Administer over 30 Minutes, 50 mL
Reas on for Anti-Infec tive: Documented Infection< br>Documen timur Infection Site: Urine<br&g t;Duration of Therapy: Other (see Comments) LORazepam 2022-0 2022- No 1mg 1 mg, Slow U nivers (ATIVAN) 10-25 IV Push, ity of injection 1 01:00: 01:09 ONCE, 1 [place] mg 00 :00 dose, On [facility] 10/24/22 at 1900, STAT amLODIPine 2022-0 Yes 5mg Take 5 mg Un teo 5 mg tablet 10-08 by mouth ity of 13:19: at [place] [address] bedtime. Medical Branch aspirin 81 2022-0 Yes 81mg Take 81 mg U nivers mg EC 10-08 by mouth ity of tablet 13:19: in the [place] [address] morning. Medical Branch lisinopriL 2022-0 Yes 20mg Take 20 mg U nivers 20 mg 10-08 by mouth ity of tablet 13:19: in the [place] [address] morning Medical and 20 mg Branch in the evening. metFORMIN 2022-0 Yes 500mg Take 500 Uni vers 500 mg 1-28 mg by ity of tablet 13:19: mouth in [place] [address] the Medical morning Branch and 500 mg in the evening. Take with meals. pantoprazol 2022-0 Yes 40mg Take 40 mg Univers e 10-08 by mouth ity of (PROTONIX) 13:19: in the [place] 20 mg EC morning. Medical tablet Branch tamsulosin 2022-0 Yes Take by [facility] ers (FLOMAX) 10-08 mouth ity of 0.4 mg 24 13:19: daily. [place] hr capsule 28 Medical Branch FLUoxetine 2022-0 Yes 20mg Take 20 mg U nivers 20 mg 10-08 by mouth ity of capsule 13:19: in the [place] [address] morning. Medical Branch gabapentin 2022-0 Yes 300mg Take 300 Un teo 300 mg - mg by ity of capsule 13:19: mouth 2 [place] [address] (two) Medical times Branch daily as needed. levETIRAcet 2022-0 Yes 250mg Take 250 U nivers am (KEPPRA) 10-08 mg by ity of 250 mg 13:19: mouth in [facility] 28 the Medical morning Branch and 250 mg in the evening. memantine 2022-0 Yes 10mg Take 10 mg Un teo 10 mg 10-08 by mouth ity of tablet 13:19: in the [place] [address] morning Medical and 10 mg Branch in the evening. simvastatin 2022-0 Yes 20mg Take 20 mg Univers 20 mg 10-08 by mouth ity of tablet 13:19: at [place] [address] bedtime. Medical Branch amLODIPine 2022-0 Yes 5mg Take 5 mg Un teo 5 mg tablet 10-08 by mouth ity of 13:19: at [place] [address] bedtime. Medical Branch aspirin 81 2022-0 Yes 81mg Take 81 mg U nivers mg EC 10-08 by mouth ity of tablet 13:19: in the [place] [address] morning. Medical Branch lisinopriL 2022-0 Yes 20mg Take 20 mg U nivers 20 mg 10-08 by mouth ity of tablet 13:19: in the [place] [address] morning Medical and 20 mg Branch in the evening. metFORMIN 2022-0 Yes 500mg Take 500 Uni vers 500 mg - mg by ity of tablet 13:19: mouth in [place] [address] the Medical morning Branch and 500 mg in the evening. Take with meals. pantoprazol 3-0 Yes 40mg Take 40 mg Univers e 10-08 by mouth ity of (PROTONIX) 13:19: in the [place] 20 mg EC 28 morning. Medical tablet Branch tamsulosin 2022-0 Yes Take by [facility] ers (FLOMAX) 10-08 mouth ity of 0.4 mg 24 13:19: daily. [place] hr capsule Medical Branch FLUoxetine 2022-0 Yes 20mg Take 20 mg U nivers 20 mg 10-08 by mouth ity of capsule 13:19: in the [place] [address] morning. Medical Branch gabapentin 2022-0 Yes 300mg Take 300 Un teo 300 mg - mg by ity of capsule 13:19: mouth 2 (two) Medical times Branch daily as needed. levETIRAcet 2022-0 Yes 250mg Take 250 U nivers am (KEPPRA) 10-08 mg by ity of 250 mg 13:19: mouth in [place] tablet 28 the Medical morning Branch and 250 mg in the evening. memantine 2022-0 Yes 10mg Take 10 mg Un teo 10 mg 10-08 by mouth ity of tablet 13:19: in the [place] [address] morning Medical and 10 mg Branch in the evening. simvastatin 2022-0 Yes 20mg Take 20 mg Univers 20 mg 10-08 by mouth ity of tablet 13:19: at [place] [address] bedtime. Medical Branch amLODIPine 2022-0 Yes 5mg Take 5 mg Un teo 5 mg tablet 10-08 by mouth ity of 13:19: at [place] [address] bedtime. Medical Branch aspirin 81 2022-0 Yes 81mg Take 81 mg U nivers mg EC 10-08 by mouth ity of tablet 13:19: in the [place] [address] morning. Medical Branch lisinopriL 2022-0 Yes 20mg Take 20 mg U nivers 20 mg 10-08 by mouth ity of tablet 13:19: in the [place] [address] morning Medical and 20 mg Branch in the evening. metFORMIN 2022-0 Yes 500mg Take 500 Uni vers 500 mg - mg by ity of tablet 13:19: mouth in the Medical morning Branch and 500 mg in the evening. Take with meals. pantoprazol 3-0 Yes 40mg Take 40 mg Univers e 10-08 by mouth ity of (PROTONIX) 13:19: in the [place] 20 mg EC 28 morning. Medical tablet Branch tamsulosin 2022-0 Yes Take by [facility] ers (FLOMAX) 10-08 mouth ity of 0.4 mg 24 13:19: daily. [place] hr capsule 28 Medical Branch FLUoxetine 2022-0 Yes 20mg Take 20 mg U nivers 20 mg 10-08 by mouth ity of capsule 13:19: in the [place] [address] morning. Medical Branch gabapentin 2022-0 Yes 300mg Take 300 Un teo 300 mg - mg by ity of capsule 13:19: mouth 2 [place] [address] (two) Medical times Branch daily as needed. levETIRAcet 2022-0 Yes 250mg Take 250 U nivers am (KEPPRA) 1- mg by ity of 250 mg 13:19: mouth in [facility] 28 the Medical morning Branch and 250 mg in the evening. memantine 0 Yes 10mg Take 10 mg Un teo 10 mg 10-08 by mouth ity of tablet 13:19: in the [place] morning Medical and 10 mg Branch in the evening. simvastatin 0 Yes 20mg Take 20 mg Univers 20 mg 10-08 by mouth ity of tablet 13:19: at [place] [address] bedtime. Medical Branch Sliding Yes Subcutaneo Univ [...] 03:45: First dose [place] 00 on Mon [facility] 10/07/22 at Branch 2145, Until Discontinu ed, [...] First dose [place] 00 :30 on Mon [facility] 10/07/22 at Branch 2145, Until Discontinu ed, Routine dextrose Yes 250mL 250 mL, IV Un teo 10% (D10W) 10-08 Infusion, ity of bolus 03:32: PRN - SEE [place] infusion 30 INSTRUCTIO Medic al 250 mL [...] Starting Medical injection 1 on Mon Branch 10/07/22 at 2132, Until Discontinu ed, YOKO, Blood Glucose < or = 70 mg/dL and patient is NPO, unable to swallow or has mental changes. dextrose 0 2022- No 250mL 250 mL, IV U nivers 10% (D10W) 10-08 Infusion, ity of bolus 03:32: 21:19 PRN - SEE [place] infusion 30 :30 INSTRUCTIO Medic al 250 [...] glucose is < 80 mg/dL, repeat.
glucagon 2022- No 1mg 1 mg, Univers (GLUCAGEN 10-08 Intramuscu ity of DIAGNOSTIC 03:32: 21:19 lar, PRN, [place] KIT) 30 :30 Starting Medical injection 1 on Fri Branch mg 10/07/22 at 2132, Until 10/08/22 at 1519, YOKO, Blood Glucose < or = 70 mg/dL and patient is NPO, unable to swallow or has mental changes. sennosides- Yes 1{tbl} 1 tablet, [facility] docusate 10-07 Oral, ity of sodium 15:00: [...] 0900, Until Discontinu ed, Routine sennosides- 0 2022- No 1{tbl} 1 tablet, Univers docusate 10-07 [...] Until Discontinu ed, Routine hydralAZINE 2022- No [id number] 10mg 10 mg, Univers (APRESOLINE 10-07 Slow IV ity of ) injection 12:15: 11:26 [place] 10 mg 00 :00 ONCE, 1 Medical dose, On Branch Mon10/07/22 at 0615, STAT hydralAZINE 2022- No [id number] 10mg 10 mg, Univers (APRESOLINE 10-07 Slow IV ity of ) injection 12:15: 11:26 [place] 10 mg 00 :00 ONCE, 1 Medical dose, On Branch Mon10/07/22 at 0615, STAT simvastatin Yes 20mg 20 mg, Univ ers (ZOCOR) 10-07 Oral, QHS, ity of tablet 20 03:00: First dose [place] mg 00 on [facility] 10/06/22 at [place] 2099, Until Discontinu ed, Routine amLODIPine Yes 5mg 5 mg, Univer s (NORVAS) 10-07 Oral, QHS, ity of tablet 5 mg 03:00: First dose [place] 00 on [facility] 10/06/22 at [place] 2099, Until Discontinu ed, Routine simvastatin 2022- No 20mg 20 mg, Uni vers (ZOCOR) 10-07 Oral, QHS, ity o f tablet 20 03:00: 21:19 First dose [place] mg 00 :30 on [facility] 10/06/22 at [place] 2099, Until Discontinu ed, Routine amLODIPine 2022- No 5mg 5 mg, [facility] 10-07 Oral, QHS, ity of tablet 5 mg 03:00: 21:19 First dose [place] 00 :30 on [facility] 10/06/22 at [place] 2099, Until Discontinu ed, Routine levETIRAcet Yes 250mg 250 mg, Un teo am (KEPPRA) 10-07 Oral, BID, it y of tablet 250 02:00: First dose [place] mg 00 on [facility] 10/06/22 at [place] 1999, Until Discontinu ed, Routine levETIRAcet 2022- No 250mg 250 mg, U nivers am (KEPPRA) 10-07 Oral, BID, i ty of tablet 250 02:00: 21:19 First dose [place] mg 00 :30 on [facility] 10/06/22 at [place] 2000, Until Discontinu ed, Routine carvediloL 2022- No [id number] 6.25mg Take 1 Univers 6.25 mg 10-07 tablet by ity of tablet 00:00: 05:59 mouth in [place] 00 :00 the Medical morning Branch and 1 tablet in the evening. Take with meals. Do all this for 30 days. carvediloL 2022- No [id number] 6.25mg Take 1 Univers 6.25 mg 1-27 02-27 tablet by ity of tablet 00:00: 05:59 mouth in [place] 00 :00 the Medical morning Branch and 1 tablet in the evening. Take with meals. Do all this for 30 days. carvediloL 2022-0 3- No [id number] 6.25mg Take 1 Univers 6.25 mg -27 -27 tablet by ity of tablet 00:00: 05:59 mouth in [place] 00 :00 the Medical morning Branch and 1 tablet in the evening. Take with meals. Do all this for 30 days. carvediloL 2022-0 2022- No [id number] 6.25mg Take 1 Univers 6.25 mg 10-07 02-16 tablet by ity of tablet 00:00: 00:00 mouth in [place] 00 :00 the [facility] morning Branch and 1 tablet in the evening. Take with meals. Do all this for 30 days. lactated 2022-0 2023- No 500mL at 200 Unive rs ringers IV 10-06 mL/hr, 500 it y of infusion 20:15: 13:51 mL, [place] 500 mL 00 :00 Intravenou Medical s, ONCE, 1 Branch dose, On [place] 10/06/22 at 1415, Routine lactated 2022-0 3- No 500mL at 200 Unive rs ringers IV 10-06 mL/hr, 500 it y of infusion 20:15: 13:51 mL, [place] 500 mL 00 :00 Intravenou Medical s, ONCE, 1 Branch dose, On [place] 10/06/22 at 1415, Routine hydralAZINE 2022-0 2022- No 10mg 10 mg, Uni vers (APRESOLINE 10-06 Slow IV ity of ) injection 20:00: 19:15 [place] 10 mg 00 :00 ONCE, 1 Medical dose, On Branch [facility] 10/06/22 at 1400, STAT hydralAZINE 2022-0 2022- No 10mg 10 mg, Uni vers (APRESOLINE 10-06 Slow IV ity of ) injection 20:00: 19:15 [place] 10 mg 00 :00 ONCE, 1 Medical dose, On Branch [facility] 10/06/22 at 1400, STAT carvediloL 2022-0 Yes [...] Medical mg last Branch modificati on) on [facility] 10/06/22 at 1145, Until Discontinu ed, Routine lisinopriL 2022-0 2022- No 20mg 20 mg, Univ ers (PRINIVIL,Z 10-06 Oral, BID, i ty of ESTRIL) 17:45: 21:19 First dose [place] tablet 20 00 :30 (after Medical mg last Branch modificati on) on [facility] 10/06/22 at 1145, Until Discontinu ed, Routine acetaminoph 2022-0 Yes 650mg 650 mg, Un teo en 10-06 Oral, ity of (TYLENOL) 17:33: Q6HPRN, [place] tablet 650 13 Starting Medic al mg on [facility] Branch 10/06/22 at 1133, Until Discontinu ed, Routine, Pain (scale 1-3) acetaminoph 2022-0 2022- No 650mg 650 mg, U nivers en 10-06 Oral, ity of (TYLENOL) 17:33: 21:19 Q6HPRN, [place] tablet 650 13 :30 Starting Medic al mg on [facility] Branch 10/06/22 at 1133, Until 10/08/22 at [...] Pain (scale 4-6) hydralAZINE 2022-0 2022- No [id number] 10mg 10 mg, Univers (APRESOLINE 10-06 Slow IV ity of ) injection 17:30: 16:31 [place] 10 mg 00 :00 ONCE, 1 Medical dose, On Branch [facility] 10/06/22 at 1130, STAT hydralAZINE 0 2022- No [id number] 10mg 10 mg, Univers (APRESOLINE 10-06 Slow IV ity of ) injection 17:30: 16:31 [place] 10 mg 00 :00 ONCE, 1 Medical dose, On Branch [facility] 10/06/22 at 1130, STAT lidocaine 2022- No ONCE INTRA U nivers 1% (PF) 10-06 PROCEDURE, ity o f (XYLOCAINE) 14:22: 15:52 Starting [place] injection 52 :21 on [facility] 10/06/22 at Branch 0822, Until [place] 10/06/22 at 0952, Routine, CV Intraproce dure iodixanol 2022- No ONCE INTRA U nivers (VISIPAQUE 10-06 PROCEDURE, it y of 320-100 mL) 14:03: 15:52 Starting [place] injection 41 :21 on [facility] Medical 10/06/22 at Branch 0803, Until [place] 10/06/22 at 0952, Routine, CV Intraproce dure hydralAZINE 2022-0 2022- No [id number] 10mg Inject 0.5 Univers 20 mg/mL 10-06 mL ity of injection 00:00: 00:00 intravenou [place] 00 :00 sly once Medical now for 1 Branch dose. hydralAZINE 2022- No [id number] 10mg Inject 0.5 Univers 20 mg/mL 10-06 01-27 mL ity of injection 00:00: 00:00 intravenou [place] 00 :00 sly once Medical now for 1 Branch dose. amitriptyli 2021-09- No [id number] 25mg Take 1 Univers ne 25 mg 0-23 10-31 tablet by ity o f tablet 00:00: 04:59 mouth at [place] 00 :00 bedtime Medical for 7 Branch days. amitriptyli 2021-09- No [id number] 25mg Take 1 Univers ne 25 mg 0-23 10-31 tablet by ity o f tablet 00:00: 04:59 mouth at [place] 00 :00 bedtime Medical for 7 Branch days. amitriptyli 2021-09- No [id number] 25mg Take 1 Univers ne 25 mg 0-23 10-31 tablet by ity o f tablet 00:00: 04:59 mouth at [place] 00 :00 bedtime Medical for 7 Branch days. amitriptyli 2021-09- No [id number] 25mg Take 1 Univers ne 25 mg 0-23 10-31 tablet by ity o f tablet 00:00: 04:59 mouth at [place] 00 :00 bedtime Medical for 7 Branch days. tamsulosin 2021-09 Yes .4mg 0.4 mg, Univ ers (FLOMAX) 0-16 Oral, QHS, ity o f capsule 0.4 02:00: First dose [place] mg 00 on [facility] 06/25/22 Branch at 2100, Until Discontinu ed, Routine amLODIPine 2021-09 Yes 5mg 5 mg, Univer s (NORVASC) 0-16 Oral, QHS, ity of tablet 5 mg 02:00: First dose [place] 00 on [facility] 06/25/22 Branch at 2100, Until Discontinu ed, Routine tamsulosin 2021-09- No .4mg 0.4 mg, Uni vers (FLOMAX) 0-16 10-15 Oral, QHS, ity of capsule 0.4 02:00: 21:09 First dose [place] mg 00 :41 on [facility] 06/25/22 Branch at 2100, Until Discontinu ed, Routine amLODIPine 2021-09 No 5mg 5 mg, Unive rs (NORVASC) 0-16 10-15 Oral, QHS, ity of tablet 5 mg 02:00: 21:09 First dose [place] 00 :41 on Sat Medical 06/25/22 Branch at 2100, Until Discontinu ed, Routine pantoprazol 2021-09- No [id number] 40mg Take 1 Univers e 0-16 01-15 tablet by ity of (PROTONIX) 00:00: 05:59 mouth in [place] 40 mg EC 00 :00 the Medical tablet morning Branch for 90 days. vitamin 2021-09- No [id number] 1000ug Take 1 U nivers B-12 1,000 0-16 01-15 tablet by ity of mcg tablet 00:00: 05:59 mouth in [place] 00 :00 the Medical morning Branch for 90 days. pantoprazol 2021-09- No [id number] 40mg Take 1 Univers e 0-16 01-15 tablet by ity of (PROTONIX) 00:00: 05:59 mouth in [place] 40 mg EC 00 :00 the Medical tablet morning Branch for 90 days. vitamin 2021-09- No [id number] 1000ug Take 1 U nivers B-12 1,000 0-16 01-15 tablet by ity of mcg tablet 00:00: 05:59 mouth in [place] 00 :00 the Medical morning Branch for 90 days. pantoprazol 2021-09- No [id number] 40mg Take 1 Univers e 0-16 01-15 tablet by ity of (PROTONIX) 00:00: 05:59 mouth in [place] 40 mg EC 00 :00 the Medical tablet morning Branch for 90 days. vitamin 2021-09- No [id number] 1000ug Take 1 U nivers B-12 1,000 0-16 01-15 tablet by ity of mcg tablet 00:00: 05:59 mouth in [place] 00 :00 the Medical morning Branch for 90 days. pantoprazol 2021-09- No [id number] 40mg Take 1 Univers e 0-16 01-15 tablet by ity of (PROTONIX) 00:00: 05:59 mouth in [place] 40 mg EC 00 :00 the Medical tablet morning Branch for 90 days. vitamin 2021-09- No [id number] 1000ug Take 1 U nivers B-12 1,000 0-16 01-15 tablet by ity of mcg tablet 00:00: 05:59 mouth in [place] 00 :00 the Medical morning Branch for 90 days. pantoprazol 2021-09- No [id number] 40mg Take 1 Univers e 0-16 01-15 tablet by ity of (PROTONIX) 00:00: 05:59 mouth in [place] 40 mg EC 00 :00 the Medical tablet morning Branch for 90 days. vitamin 2021-09- No [id number] 1000ug Take 1 U nivers B-12 1,000 0-16 01-15 tablet by ity of mcg tablet 00:00: 05:59 mouth in [place] 00 :00 the Medical morning Branch for 90 days. pantoprazol 2021-09- No [id number] 40mg Take 1 Univers e 0-16 01-15 tablet by ity of (PROTONIX) 00:00: 05:59 mouth in [place] 40 mg EC 00 :00 the Medical tablet morning Branch for 90 days. vitamin 2021-09- No [id number] 1000ug Take 1 U nivers B-12 1,000 0-16 01-15 tablet by ity of mcg tablet 00:00: 05:59 mouth in [place] 00 :00 the Medical morning Branch for 90 days. pantoprazol 2021-09- No [id number] 40mg Take 1 Univers e 0-16 01-15 tablet by ity of (PROTONIX) 00:00: 05:59 mouth in [place] 40 mg EC 00 :00 the Medical tablet morning Branch for 90 days. vitamin 2021-09- No [id number] 1000ug Take 1 U nivers B-12 1,000 0-16 01-15 tablet by ity of mcg tablet 00:00: 05:59 mouth in [place] 00 :00 the Medical morning Branch for 90 days. pantoprazol 2021-09- No [id number] 40mg Take 1 Univers e 0-16 01-15 tablet by ity of (PROTONIX) 00:00: 05:59 mouth in [place] 40 mg EC 00 :00 the Medical tablet morning Branch for 90 days. vitamin 2021-09- No [id number] 1000ug Take 1 U nivers B-12 1,000 0-16 01-15 tablet by ity of mcg tablet 00:00: 05:59 mouth in [place] 00 :00 the Medical morning Branch for 90 days. pantoprazol 2021-09- No [id number] 40mg Take 1 Univers e 0-16 01-15 tablet by ity of (PROTONIX) 00:00: 05:59 mouth in [place] 40 mg EC 00 :00 the Medical tablet morning Branch for 90 days. vitamin 2021-09- No [id number] 1000ug Take 1 U nivers B-12 1,000 0-16 01-15 tablet by ity of mcg tablet 00:00: 05:59 mouth in [place] 00 :00 the Medical morning Branch for 90 days. pantoprazol 2021-09- No [id number] 40mg Take 1 Univers e 0-16 01-15 tablet by ity of (PROTONIX) 00:00: 05:59 mouth in [place] 40 mg EC 00 :00 the Medical tablet morning Branch for 90 days. vitamin 2021-09- No [id number] 1000ug Take 1 U nivers B-12 1,000 0-16 01-15 tablet by ity of mcg tablet 00:00: 05:59 mouth in [place] 00 :00 the Medical morning Branch for 90 days. pantoprazol 2021-09- No [id number] 40mg Take 1 Univers e 0-16 01-15 tablet by ity of (PROTONIX) 00:00: 05:59 mouth in [place] 40 mg EC 00 :00 the Medical tablet morning Branch for 90 days. vitamin 2021-09- No [id number] 1000ug Take 1 U nivers B-12 1,000 0-16 01-15 tablet by ity of mcg tablet 00:00: 05:59 mouth in [place] 00 :00 the Medical morning Branch for 90 days. pantoprazol 2021-09- No [id number] 40mg Take 1 Univers e 0-16 01-15 tablet by ity of (PROTONIX) 00:00: 05:59 mouth in [place] 40 mg EC 00 :00 the Medical tablet morning Branch for 90 days. vitamin 2021-09- No [id number] 1000ug Take 1 U nivers B-12 1,000 0-16 01-15 tablet by ity of mcg tablet 00:00: 05:59 mouth in [place] 00 :00 the Medical [facility] Branch for 90 days. vitamin 2021-09 Yes 1000ug 1,000 mcg, Un teo B-12 0-15 Oral, ity of (CYANOCOBAL 14:00: DAILY[place] CODY) 00 First dose Medical tablet (after Branch 1,000 mcg last modificati on) on [facility] 06/25/22 at 0900, Until Discontinu ed, Routine magnesium 2021-09 No 2g 2 g, IV Univ ers sulfate in 0-15 10-15 Piggyback, it y of water 2 14:00: 14:38 Administer [place] as gram/50 mL 00 :00 over 60 Medica l (4 %) Minutes, Branch infusion 2 ONCE, 1 g dose, On [facility] 06/25/22 at 0900, Routine vitamin 2021-09 No 1000ug 1,000 mcg, U nivers B-12 0-15 10-15 Oral, ity of (CYANOCOBAL 14:00: 21:09 DAILY, [place] CODY) 00 :41 First dose Medical tablet (after Branch 1,000 mcg last modificati on) on [facility] 06/25/22 at 0900, Until Discontinu [...] First dose [place] mg 00 on [facility] 06/25/22 Branch at 0800, Until Discontinu ed, Routine levETIRAcet 2021-09- No 250mg 250 mg, U nivers am (KEPPRA) 0-15 10-15 Oral, BID, i ty of tablet 250 13:00: 21:09 First dose [place] mg 00 :41 on [facility] 06/25/22 Branch at 0800, Until Discontinu ed, Routine PEPCID 2021-09- No prn Univers MG ORAL TAB 0-15 10-15 ity of 12:45: 00:00 [place] 24 :00 Medical Branch B COMPLEX 1 2021-09- No None Unive rs ORAL TAB 0-15 10-15 Entered ity of 12:45: 00:00 [place] 24 :00 Medical Branch M-VIT ORAL 2021-09- No None Univer s 0-15 10-15 Entered ity of 12:45: 00:00 [place] 24 :00 Medical Branch PEPCID 2021-09- No prn Univers MG ORAL TAB 0-15 10-15 ity of 12:45: 00:00 [place] 24 :00 Medical Branch B COMPLEX 1 2021-09- No None Unive rs ORAL TAB 0-15 10-15 Entered ity of 12:45: 00:00 [place] 24 :00 Medical Branch M-VIT ORAL 2021-09- No None Univer s 0-15 10-15 Entered ity of 12:45: 00:00 [place] 24 :00 Medical Branch metFORMIN 2021-09- No [id number] 500mg Take 1 Univers 500 mg 09-24 tablet by ity of tablet 00:00: 05:59 mouth in [place] 00 :00 the Medical morning Branch and 1 tablet in the evening. Take with meals. Do all this for 90 days. tamsulosin 2021-09- No [id number] .4mg Take 1 Univers 0.4 mg 24 09-24 capsule by ity of hr capsule 00:00: 05:59 mouth at [facility] 00 :00 bedtime Medical for 90 Branch days. amLODIPine 2021-09- No [id number] 5mg Take 1 Univers 5 mg tablet 09-24 tablet by it y of 00:00: 05:59 mouth at [place] 00 :00 bedtime Medical for 90 Branch days. levETIRAcet 2021-09- No [id number] 250mg Take 1 Univers am 250 mg - tablet by ity of tablet 00:00: 05:59 mouth in [place] 00 :00 the Medical morning Branch and 1 tablet in the evening. Do all this for 90 days. lisinopriL 2021-09- No [id number] 20mg Take 1 Univers 20 mg 0-15 -14 tablet by ity of tablet 00:00: 05:59 mouth in [place] 00 :00 the Medical morning Branch and 1 tablet in the evening. Do all this for 90 days. FLUoxetine 2021-09- No [id number] 20mg Take 1 Univers 20 mg 0-15 -14 capsule by ity of capsule 00:00: 05:59 mouth in [place] 00 :00 the [facility] Branch for 90 days. memantine 2021-09- No [id number] 10mg Take 1 U nivers 10 mg 0-15 -14 tablet by ity of tablet 00:00: 05:59 mouth in [place] 00 :00 the [facility] morning Branch and 1 tablet in the evening. Do all this for 90 days. pyridostigm 2021-09- No [id number] 60mg Take 1 Univers ine 60 mg 0-15 -14 tablet by ity of tablet 00:00: 05:59 mouth as [place] 00 :00 needed for Medical Other Branch (HYPOTENSI ON) for up to 90 days. simvastatin 2021-09- No [id number] 20mg Take 1 Univers 20 mg 0-15 -14 tablet by ity of tablet 00:00: 05:59 mouth at [place] 00 :00 bedtime Medical for 90 Branch days. aspirin 81 2021-09- No [id number] 81mg Take 1 Univers mg chewable 0-15 -14 tablet by it y of tablet 00:00: 05:59 mouth in [place] 00 :00 the [facility] morning [place] for 90 days. KCL 20 mEq 2021-09- No [id number] 40meq Take 2 Univers tablet 0-15 -14 tablets by ity of 00:00: 05:59 mouth in [place] 00 :00 the [facility] morning [place] for 90 days. metFORMIN 2021-093- No [id number] 500mg Take 1 Univers 500 mg 0-15 -14 tablet by ity of tablet 00:00: 05:59 mouth in [place] 00 :00 the Medical morning Branch and 1 tablet in the evening. Take with meals. Do all this for 90 days. tamsulosin 2021-09- No [id number] .4mg Take 1 Univers 0.4 mg 24 0-15 -14 capsule by ity of hr capsule 00:00: 05:59 mouth at [place] 00 :00 bedtime Medical for 90 Branch days. amLODIPine 2021-09- No [id number] 5mg Take 1 Univers 5 mg tablet 009-24 tablet by it y of 00:00: 05:59 mouth at [place] 00 :00 bedtime Medical for 90 Branch days. levETIRAcet 2021-09- No [id number] 250mg Take 1 Univers am 250 mg 09-24 tablet by ity of tablet 00:00: 05:59 mouth in [place] 00 :00 the Medical morning Branch and 1 tablet in the evening. Do all this for 90 days. lisinopriL 2021-09- No [id number] 20mg Take 1 Univers 20 mg 009-24 tablet by ity of tablet 00:00: 05:59 mouth in [place] 00 :00 the Medical morning Branch and 1 tablet in the evening. Do all this for 90 days. FLUoxetine 2021-09- No [id number] 20mg Take 1 Univers 20 mg 009-24 capsule by ity of capsule 00:00: 05:59 mouth in [place] 00 :00 the Medical morning Branch for 90 days. memantine 2021-09- No [id number] 10mg Take 1 U nivers 10 mg 09-24 tablet by ity of tablet 00:00: 05:59 mouth in [place] 00 :00 the Medical morning Branch and 1 tablet in the evening. Do all this for 90 days. pyridostigm 2021-09- No [id number] 60mg Take 1 Univers ine 60 mg 009-24 tablet by ity of tablet 00:00: 05:59 mouth as [place] 00 :00 needed for Medical Other Branch (HYPOTENSI ON) for up to 90 days. simvastatin 2021-09- No [id number] 20mg Take 1 Univers 20 mg 0-15 - tablet by ity of tablet 00:00: 05:59 mouth at [place] 00 :00 bedtime Medical for 90 Branch days. aspirin 81 2021-09- No [id number] 81mg Take 1 Univers mg chewable 009-24 tablet by it y of tablet 00:00: 05:59 mouth in [place] 00 :00 the Medical morning Branch for 90 days. KCL 20 mEq 2021-09- No [id number] 40meq Take 2 Univers tablet 0- tablets by ity of 00:00: 05:59 mouth in [place] 00 :00 the [facility] for 90 days. metFORMIN 2021-09- No [id number] 500mg Take 1 Univers 500 mg 0-14 tablet by ity of tablet 00:00: 05:59 mouth in [place] 00 :00 the [facility] and 1 tablet in the evening. Take with meals. Do all this for 90 days. tamsulosin 2021-09- No [id number] .4mg Take 1 [facility] 0.4 mg 24 009-24 capsule by ity of hr capsule 00:00: 05:59 mouth at [facility] 00 :00 bedtime [facility] for 90 Branch days. amLODIPine 2021-09- No [id number] 5mg Take 1 [facility] 5 mg tablet 09-24 tablet by it y of 00:00: 05:59 mouth at [place] 00 :00 bedtime [facility] for 90 Branch days. levETIRAcet 2021-09- No [id number] 250mg Take 1 [facility] am 250 mg 09-24 tablet by ity of tablet 00:00: 05:59 mouth in [place] 00 :00 [facility] and 1 tablet in the evening. Do all this for 90 days. lisinopriL 2021-09- No [id number] 20mg Take 1 [facility] 20 mg 0- tablet by ity of tablet 00:00: 05:59 mouth in [place] 00 :00 the [facility] and 1 tablet in the evening. Do all this for 90 days. FLUoxetine 2021-09- No [id number] 20mg Take 1 [facility] 20 mg 0- capsule by ity of capsule 00:00: 05:59 mouth in [place] 00 :00 [facility] for 90 days. memantine 2021-09- No [id number] 10mg Take 1 U nivers 10 mg 0-14 tablet by ity of tablet 00:00: 05:59 mouth in [place] 00 :00 the [facility] and 1 tablet in the evening. Do all this for 90 days. pyridostigm 2021-09- No [id number] 60mg Take 1 [facility] ine 60 mg 0-15 -14 tablet by ity of tablet 00:00: 05:59 mouth as [place] 00 :00 needed for Medical Other Branch (HYPOTENSI ON) for up to 90 days. simvastatin 2021-09- No [id number] 20mg Take 1 [facility] 20 mg 0-15 -14 tablet by ity of tablet 00:00: 05:59 mouth at [place] 00 :00 bedtime Medical for 90 Branch days. aspirin 81 2021-09- No [id number] 81mg Take 1 [facility] mg chewable 0-15 -14 tablet by it y of tablet 00:00: 05:59 mouth in [place] 00 :00 the Medical morning Branch for 90 days. metFORMIN 2021-09- No [id number] 500mg Take 1 [facility] 500 mg 0-25 09- tablet by ity of tablet 00:00: 05:59 mouth in [place] 00 :00 the Medical morning Branch and 1 tablet in the evening. Take with meals. Do all this for 90 days. tamsulosin 2021-09- No [id number] .4mg Take 1 [facility] 0.4 mg 24 0-25 09- capsule by ity of hr capsule 00:00: 05:59 mouth at [facility] 00 :00 bedtime Medical for 90 Branch days. amLODIPine 2021-09- No [id number] 5mg Take 1 [facility] 5 mg tablet 009-24 tablet by it y of 00:00: 05:59 mouth at [place] 00 :00 bedtime Medical for 90 Branch days. levETIRAcet 2021-09- No [id number] 250mg Take 1 [facility] am 250 mg 009-24 tablet by ity of tablet 00:00: 05:59 mouth in [place] 00 :00 the Medical morning Branch and 1 tablet in the evening. Do all this for 90 days. lisinopriL 2021-09- No [id number] 20mg Take 1 [facility] 20 mg 0-15 -14 tablet by ity of tablet 00:00: 05:59 mouth in [place] 00 :00 the Medical morning Branch and 1 tablet in the evening. Do all this for 90 days. FLUoxetine 2021-09- No [id number] 20mg Take 1 [facility] 20 mg 0-15 -14 capsule by ity of capsule 00:00: 05:59 mouth in [place] 00 :00 the Medical morning Branch for 90 days. memantine 2021-09- No [id number] 10mg Take 1 [facility] nivers 10 mg 009-24 tablet by ity of tablet 00:00: 05:59 mouth in [place] 00 :00 the Medical morning Branch and 1 tablet in the evening. Do all this for 90 days. pyridostigm 2021-09- No [id number] 60mg Take 1 [facility] ine 60 mg 009-24 tablet by ity of tablet 00:00: 05:59 mouth as [place] 00 :00 needed for Medical Other Branch (HYPOTENSI ON) for up to 90 days. simvastatin 2021-09- No [id number] 20mg Take 1 [facility] 20 mg 009-24 tablet by ity of tablet 00:00: 05:59 mouth at [place] 00 :00 bedtime Medical for 90 Branch days. aspirin 81 2021-09- No [id number] 81mg Take 1 [facility] mg chewable 09-24 tablet by it y of tablet 00:00: 05:59 mouth in [place] 00 :00 the [facility] morning Branch for 90 days. KCL 20 mEq 2021-09- No [id number] 40meq Take 2 [facility] tablet 09-24 tablets by ity of 00:00: 05:59 mouth in [place] 00 :00 the Medical morning Branch for 90 days. metFORMIN 2021-09- No [id number] 500mg Take 1 [facility] 500 mg 09-24 tablet by ity of tablet 00:00: 05:59 mouth in [place] 00 :00 the Medical morning Branch and 1 tablet in the evening. Take with meals. Do all this for 90 days. tamsulosin 2021-09- No [id number] .4mg Take 1 [facility] 0.4 mg 24 09-24 capsule by ity of hr capsule 00:00: 05:59 mouth at [facility] 00 :00 bedtime Medical for 90 Branch days. amLODIPine 2021-09- No [id number] 5mg Take 1 [facility] 5 mg tablet 09-24 tablet by it y of 00:00: 05:59 mouth at [place] 00 :00 bedtime Medical for 90 Branch days. levETIRAcet 2021-09- No [id number] 250mg Take 1 [facility] am 250 mg 0-15 -14 tablet by ity of tablet 00:00: 05:59 mouth in [place] 00 :00 the Medical morning Branch and 1 tablet in the evening. Do all this for 90 days. lisinopriL 2021-09- No [id number] 20mg Take 1 [facility] 20 mg 0-15 -14 tablet by ity of tablet 00:00: 05:59 mouth in [place] 00 :00 the Medical morning Branch and 1 tablet in the evening. Do all this for 90 days. FLUoxetine 2021-09- No [id number] 20mg Take 1 [facility] 20 mg 0-15 -14 capsule by ity of capsule 00:00: 05:59 mouth in [place] 00 :00 the Medical morning Branch for 90 days. memantine 2021-09- No [id number] 10mg Take 1 U nivers 10 mg 0-15 -14 tablet by ity of tablet 00:00: 05:59 mouth in [place] 00 :00 the Medical morning Branch and 1 tablet in the evening. Do all this for 90 days. pyridostigm 2021-09- No [id number] 60mg Take 1 [facility] ine 60 mg 0-15 -14 tablet by ity of tablet 00:00: 05:59 mouth as [place] 00 :00 needed for Medical Other Branch (HYPOTENSI ON) for up to 90 days. simvastatin 2021-09- No [id number] 20mg Take 1 [facility] 20 mg 0-15 -14 tablet by ity of tablet 00:00: 05:59 mouth at [place] 00 :00 bedtime Medical for 90 Branch days. aspirin 81 2021-09- No [id number] 81mg Take 1 [facility] mg chewable 0-15 -14 tablet by it y of tablet 00:00: 05:59 mouth in [place] 00 :00 the Medical morning Branch for 90 days. KCL 20 mEq 2021-09- No [id number] 40meq Take 2 [facility] tablet 0-15 -14 tablets by ity of 00:00: 05:59 mouth in [place] 00 :00 the Medical morning Branch for 90 days. metFORMIN 2021-09- No [id number] 500mg Take 1 [facility] 500 mg 0-15 -14 tablet by ity of tablet 00:00: 05:59 mouth in [place] 00 :00 the Medical morning Branch and 1 tablet in the evening. Take with meals. Do all this for 90 days. tamsulosin 2021-09- No [id number] .4mg Take 1 [facility] 0.4 mg 24 0-15 -14 capsule by [facility]y of hr capsule 00:00: 05:59 mouth [place] 00 :00 bedtime Medical for 90 Branch days. amLODIPine 2021-09- No [id number] 5mg Take 1 [facility] 5 mg tablet 0-14 tablet by it y of 00:00: 05:59 mouth at [place] 00 :00 bedtime Medical for 90 Branch days. levETIRAcet 2021-09- No [id number] 250mg Take 1 [facility] am 250 mg 0- tablet by ity of tablet 00:00: 05:59 mouth in [place] 00 :00 the Medical morning Branch and 1 tablet in the evening. Do all this for 90 days. lisinopriL 2021-09- No [id number] 20mg Take 1 [facility] 20 mg 0-15 - tablet by ity of tablet 00:00: 05:59 mouth in [place] 00 :00 the Medical morning Branch and 1 tablet in the evening. Do all this for 90 days. FLUoxetine 2021-09- No [id number] 20mg Take 1 [facility] 20 mg 0-15 -14 capsule by ity of capsule 00:00: 05:59 mouth in [place] 00 :00 the Medical morning Branch for 90 days. memantine 2021-09- No [id number] 10mg Take 1 U nivers 10 mg 0-15 -14 tablet by ity of tablet 00:00: 05:59 mouth in [place] 00 :00 the Medical morning Branch and 1 tablet in the evening. Do all this for 90 days. pyridostigm 2021-09- No [id number] 60mg Take 1 [facility] ine 60 mg 0-15 -14 tablet by ity of tablet 00:00: 05:59 mouth as [place] 00 :00 needed for Medical Other Branch (HYPOTENSI ON) for up to 90 days. simvastatin 2021-09- No [id number] 20mg Take 1 [facility] 20 mg 0-15 -14 tablet by ity of tablet 00:00: 05:59 mouth at [place] 00 :00 bedtime Medical for 90 Branch days. aspirin 81 2021-09- No [id number] 81mg Take 1 [facility] mg chewable 0-25 09-14 tablet by it y of tablet 00:00: 05:59 mouth in [place] 00 :00 the [facility] morning [place] for 90 days. KCL 20 mEq 2021-09- No [id number] 40meq Take 2 [facility] tablet 0-15 -14 tablets by ity of 00:00: 05:59 mouth in [place] 00 :00 the [facility] morning [place] for 90 days. metFORMIN 2021-09- No [id number] 500mg Take 1 [facility] 500 mg 0-15 -14 tablet by ity of tablet 00:00: 05:59 mouth in [place] 00 :00 the [facility] morning Branch and 1 tablet in the evening. Take with meals. Do all this for 90 days. tamsulosin 2021-09- No [id number] .4mg Take 1 [facility] 0.4 mg 24 009-24 capsule by ity of hr capsule 00:00: 05:59 mouth at [facility] 00 :00 [facility] Medical for 90 Branch days. amLODIPine 2021-09- No [id number] 5mg Take 1 [facility] 5 mg tablet 0- tablet by it y of 00:00: 05:59 mouth at [place] 00 :00 [facility] for 90 Branch days. levETIRAcet 2021-09- No [id number] 250mg Take 1 [facility] am 250 mg 009-24 tablet by ity of tablet 00:00: 05:59 mouth in [place] 00 :00 the [facility] morning [place] and 1 tablet in the evening. Do all this for 90 days. lisinopriL 2021-09- No [id number] 20mg Take 1 [facility] 20 mg 0-15 -14 tablet by ity of tablet 00:00: 05:59 mouth in [place] 00 :00 the [facility] morning Branch and 1 tablet in the evening. Do all this for 90 days. FLUoxetine 2021-09- No [id number] 20mg Take 1 [facility] 20 mg 0-15 -14 capsule by ity of capsule 00:00: 05:59 mouth in [place] 00 :00 the [facility] morning [place] for 90 days. memantine 2021-09- No [id number] 10mg Take 1 U nivers 10 mg 0-15 -14 tablet by ity of tablet 00:00: 05:59 mouth in [place] 00 :00 the Medical morning Branch and 1 tablet in the evening. Do all this for 90 days. pyridostigm 2021-09- No [id number] 60mg Take 1 [facility] ine 60 mg 0-15 -14 tablet by ity of tablet 00:00: 05:59 mouth as [place] 00 :00 needed for Medical Other Branch (HYPOTENSI ON) for up to 90 days. simvastatin 2021-09- No [id number] 20mg Take 1 [facility] 20 mg 0-09-24 tablet by ity of tablet 00:00: 05:59 mouth at [place] 00 :00 bedtime Medical for 90 Branch days. aspirin 81 2021-09- No [id number] 81mg Take 1 [facility] mg chewable 009-24 tablet by it y of tablet 00:00: 05:59 mouth in [place] 00 :00 the Medical morning Branch for 90 days. KCL 20 mEq 2021-09- No [id number] 40meq Take 2 [facility] tablet 009-24 tablets by ity of 00:00: 05:59 mouth in [place] 00 :00 the Medical morning Branch for 90 days. metFORMIN 2021-09- No [id number] 500mg Take 1 [facility] 500 mg 009-24 tablet by ity of tablet 00:00: 05:59 mouth in [place] 00 :00 the Medical morning Branch and 1 tablet in the evening. Take with meals. Do all this for 90 days. tamsulosin 2021-09- No [id number] .4mg Take 1 [facility] 0.4 mg 24 09-24 capsule by ity of hr capsule 00:00: 05:59 mouth at [facility] 00 :00 bedtime Medical for 90 Branch days. amLODIPine 2021-09- No [id number] 5mg Take 1 [facility] 5 mg tablet 009-24 tablet by it y of 00:00: 05:59 mouth at [place] 00 :00 bedtime Medical for 90 Branch days. levETIRAcet 2021-09- No [id number] 250mg Take 1 [facility] am 250 mg 009-24 tablet by ity of tablet 00:00: 05:59 mouth in [place] 00 :00 the Medical morning Branch and 1 tablet in the evening. Do all this for 90 days. lisinopriL 2021-09- No [id number] 20mg Take 1 [facility] 20 mg 0-15 -14 tablet by ity of tablet 00:00: 05:59 mouth in [place] 00 :00 the Medical morning Branch and 1 tablet in the evening. Do all this for 90 days. FLUoxetine 2021-09- No [id number] 20mg Take 1 [facility] 20 mg 0-15 -14 capsule by ity of capsule 00:00: 05:59 mouth in [place] 00 :00 the [facility] morning Branch for 90 days. memantine 2021-09- No [id number] 10mg Take 1 U nivers 10 mg 0-15 -14 tablet by ity of tablet 00:00: 05:59 mouth in [place] 00 :00 the [facility] morning Branch and 1 tablet in the evening. Do all this for 90 days. pyridostigm 2021-09- No [id number] 60mg Take 1 [facility] ine 60 mg 0-25 09-14 tablet by ity of tablet 00:00: 05:59 mouth as [place] 00 :00 needed for Medical Other Branch (HYPOTENSI ON) for up to 90 days. simvastatin 2021-09- No [id number] 20mg Take 1 [facility] 20 mg 0-15 -14 tablet by ity of tablet 00:00: 05:59 mouth at [place] 00 :00 bedtime Medical for 90 Branch days. aspirin 81 2021-09- No [id number] 81mg Take 1 [facility] mg chewable 0-15 -14 tablet by it y of tablet 00:00: 05:59 mouth in [place] 00 :00 the [facility] morning [place] for 90 days. KCL 20 mEq 2021-09- No [id number] 40meq Take 2 [facility] tablet 0-15 -14 tablets by ity of 00:00: 05:59 mouth in [place] 00 :00 the Medical morning [place] for 90 days. metFORMIN 2021-093- No [id number] 500mg Take 1 [facility] 500 mg 0-15 -14 tablet by ity of tablet 00:00: 05:59 mouth in [place] 00 :00 the Medical morning Branch and 1 tablet in the evening. Take with meals. Do all this for 90 days. tamsulosin 2021-09- No [id number] .4mg Take 1 [facility] 0.4 mg 24 0-15 -14 capsule by ity of hr capsule 00:00: 05:59 mouth at [place] 00 :00 bedtime Medical for 90 Branch days. amLODIPine 2021-09- No [id number] 5mg Take 1 [facility] 5 mg tablet 0-15 -14 tablet by it y of 00:00: 05:59 mouth at [place] 00 :00 bedtime Medical for 90 Branch days. levETIRAcet 2021-09- No [id number] 250mg Take 1 [facility] am 250 mg 0-15 -14 tablet by ity of tablet 00:00: 05:59 mouth in [place] 00 :00 the Medical morning Branch and 1 tablet in the evening. Do all this for 90 days. lisinopriL 2021-09- No [id number] 20mg Take 1 [facility] 20 mg 0-15 -14 tablet by ity of tablet 00:00: 05:59 mouth in [place] 00 :00 the Medical morning Branch and 1 tablet in the evening. Do all this for 90 days. FLUoxetine 2021-09- No [id number] 20mg Take 1 [facility] 20 mg 0-15 -14 capsule by ity of capsule 00:00: 05:59 mouth in [place] 00 :00 the Medical morning Branch for 90 days. memantine 2021-09- No [id number] 10mg Take 1 U nivers 10 mg 0-15 -14 tablet by ity of tablet 00:00: 05:59 mouth in [place] 00 :00 the Medical morning Branch and 1 tablet in the evening. Do all this for 90 days. pyridostigm 2021-09- No [id number] 60mg Take 1 [facility] ine 60 mg 0-15 -14 tablet by ity of tablet 00:00: 05:59 mouth as [place] 00 :00 needed for Medical Other Branch (HYPOTENSI ON) for up to 90 days. simvastatin 2021-09- No [id number] 20mg Take 1 [facility] 20 mg 0-15 -14 tablet by ity of tablet 00:00: 05:59 mouth at [place] 00 :00 bedtime Medical for 90 Branch days. aspirin 81 2021-09- No [id number] 81mg Take 1 [facility] mg chewable 0-15 -14 tablet by it y of tablet 00:00: 05:59 mouth in [place] 00 :00 the [facility] for 90 days. KCL 20 mEq 2021-09- No [id number] 40meq Take 2 [facility] tablet 0- tablets by ity of 00:00: 05:59 mouth in [place] 00 :00 the [facility] for 90 days. metFORMIN 2021-09- No [id number] 500mg Take 1 [facility] 500 mg 0- tablet by ity of tablet 00:00: 05:59 mouth in [place] 00 :00 the [facility] and 1 tablet in the evening. Take with meals. Do all this for 90 days. tamsulosin 2021-09- No [id number] .4mg Take 1 [facility] 0.4 mg 24 09-24 capsule by ity of hr capsule 00:00: 05:59 mouth at [facility] 00 :00 bedtime [facility] for 90 Branch days. amLODIPine 2021-09- No [id number] 5mg Take 1 [facility] 5 mg tablet 09-24 tablet by it y of 00:00: 05:59 mouth at [place] 00 :00 bedtime [facility] for 90 Branch days. levETIRAcet 2021-09- No [id number] 250mg Take 1 [facility] am 250 mg 09-24 tablet by ity of tablet 00:00: 05:59 mouth in [place] 00 :00 the [facility] and 1 tablet in the evening. Do all this for 90 days. lisinopriL 2021-09- No [id number] 20mg Take 1 [facility] 20 mg 009-24 tablet by ity of tablet 00:00: 05:59 mouth in [place] 00 :00 the [facility] and 1 tablet in the evening. Do all this for 90 days. FLUoxetine 2021-09- No [id number] 20mg Take 1 [facility] 20 mg 0- capsule by ity of capsule 00:00: 05:59 mouth in [place] 00 :00 the [facility] for 90 days. memantine 2021-09- No [id number] 10mg Take 1 U nivers 10 mg 0- tablet by ity of tablet 00:00: 05:59 mouth in [place] 00 :00 the [facility] and 1 tablet in the evening. Do all this for 90 days. pyridostigm 2021-09- No [id number] 60mg Take 1 [facility] ine 60 mg 0-14 tablet by ity of tablet 00:00: 05:59 mouth as [place] 00 :00 needed for Medical Other Branch (HYPOTENSI ON) for up to 90 days. simvastatin 2021-09- No [id number] 20mg Take 1 [facility] 20 mg 0-15 -14 tablet by ity of tablet 00:00: 05:59 mouth at [place] 00 :00 bedtime Medical for 90 Branch days. aspirin 81 2021-09- No [id number] 81mg Take 1 [facility] mg chewable 014 tablet by it y of tablet 00:00: 05:59 mouth in [place] 00 :00 the Medical morning Branch for 90 days. KCL 20 mEq 2021-09- No [id number] 40meq Take 2 [facility] tablet 009-24 tablets by ity of 00:00: 05:59 mouth in [place] 00 :00 the Medical morning Branch for 90 days. metFORMIN 2021-09- No [id number] 500mg Take 1 [facility] 500 mg 009-24 tablet by ity of tablet 00:00: 05:59 mouth in [place] 00 :00 the Medical morning Branch and 1 tablet in the evening. Take with meals. Do all this for 90 days. tamsulosin 2021-09- No [id number] .4mg Take 1 [facility] 0.4 mg 24 009-24 capsule by ity of hr capsule 00:00: 05:59 mouth [place] 00 :00 bedtime Medical for 90 Branch days. amLODIPine 2021-09- No [id number] 5mg Take 1 [facility] 5 mg tablet 009-24 tablet by it y of 00:00: 05:59 mouth at [place] 00 :00 bedtime Medical for 90 Branch days. levETIRAcet 2021-09- No [id number] 250mg Take 1 [facility] am 250 mg 009-24 tablet by ity of tablet 00:00: 05:59 mouth in [place] 00 :00 the Medical morning Branch and 1 tablet in the evening. Do all this for 90 days. lisinopriL 2021-09- No [id number] 20mg Take 1 [facility] 20 mg 0-15 -14 tablet by ity of tablet 00:00: 05:59 mouth in [place] 00 :00 the Medical morning Branch and 1 tablet in the evening. Do all this for 90 days. FLUoxetine 2021-09- No [id number] 20mg Take 1 [facility] 20 mg 0-15 -14 capsule by ity of capsule 00:00: 05:59 mouth in [place] 00 :00 the Medical morning Branch for 90 days. memantine 2021-09- No [id number] 10mg Take 1 U nivers 10 mg 0-15 -14 tablet by ity of tablet 00:00: 05:59 mouth in [place] 00 :00 the Medical morning Branch and 1 tablet in the evening. Do all this for 90 days. pyridostigm 2021-09- No [id number] 60mg Take 1 [facility] ine 60 mg 0-15 -14 tablet by ity of tablet 00:00: 05:59 mouth as [place] 00 :00 needed for Medical Other Branch (HYPOTENSI ON) for up to 90 days. simvastatin 2021-09- No [id number] 20mg Take 1 [facility] 20 mg 0-15 -14 tablet by ity of tablet 00:00: 05:59 mouth at [place] 00 :00 bedtime Medical for 90 Branch days. aspirin 81 2021-09- No [id number] 81mg Take 1 [facility] mg chewable 0-15 -14 tablet by it y of tablet 00:00: 05:59 mouth in [place] 00 :00 the [facility] morning Branch for 90 days. KCL 20 mEq 2021-09- No [id number] 40meq Take 2 [facility] tablet 0-15 -14 tablets by ity of 00:00: 05:59 mouth in [place] 00 :00 the Medical morning Branch for 90 days. metFORMIN 2021-09- No [id number] 500mg Take 1 [facility] 500 mg 0-15 -14 tablet by ity of tablet 00:00: 05:59 mouth in [place] 00 :00 the Medical morning Branch and 1 tablet in the evening. Take with meals. Do all this for 90 days. tamsulosin 2021-09- No [id number] .4mg Take 1 [facility] 0.4 mg 24 0-15 -14 capsule by ity of hr capsule 00:00: 05:59 mouth at [place] 00 :00 bedtime Medical for 90 Branch days. amLODIPine 2021-09- No [id number] 5mg Take 1 [facility] 5 mg tablet 0-14 tablet by it y of 00:00: 05:59 mouth at [place] 00 :00 bedtime Medical for 90 Branch days. levETIRAcet 2021-09- No [id number] 250mg Take 1 [facility] am 250 mg 0-25 09-14 tablet by ity of tablet 00:00: 05:59 mouth in [place] 00 :00 the Medical morning Branch and 1 tablet in the evening. Do all this for 90 days. lisinopriL 2021-09- No [id number] 20mg Take 1 [facility] 20 mg 015 - tablet by ity of tablet 00:00: 05:59 mouth in [place] 00 :00 the Medical morning Branch and 1 tablet in the evening. Do all this for 90 days. FLUoxetine 2021-09- No [id number] 20mg Take 1 [facility] 20 mg 009-24 capsule by ity of capsule 00:00: 05:59 mouth in [place] 00 :00 the [facility] morning [place] for 90 days. memantine 2021-09- No [id number] 10mg Take 1 U nivers 10 mg 009-24 tablet by ity of tablet 00:00: 05:59 mouth in [place] 00 :00 the [facility] morning Branch and 1 tablet in the evening. Do all this for 90 days. pyridostigm 2021-09- No [id number] 60mg Take 1 [facility] ine 60 mg 0- tablet by ity of tablet 00:00: 05:59 mouth as [place] 00 :00 needed for Medical Other Branch (HYPOTENSI ON) for up to 90 days. simvastatin 2021-09- No [id number] 20mg Take 1 [facility] 20 mg 0- tablet by ity of tablet 00:00: 05:59 mouth at [place] 00 :00 bedtime Medical for 90 Branch days. aspirin 81 2021-09- No [id number] 81mg Take 1 [facility] mg chewable 0-15 -14 tablet by it y of tablet 00:00: 05:59 mouth in [place] 00 :00 the Medical morning Branch for 90 days. KCL 20 mEq 2021-09- No [id number] 40meq Take 2 [facility] tablet 015 01-14 tablets by ity of 00:00: 05:59 mouth in [place] 00 :00 the Medical morning Branch for 90 days. gabapentin 2021-09- No [id number] 300mg Take 1 [facility] 300 mg 0-15 12-15 capsule by ity of capsule 00:00: 05:59 mouth as [place] 00 :00 needed for Medical Pain Branch (scale 4-6) for up to 60 days. gabapentin 2021-09- No [id number] 300mg Take 1 [facility] 300 mg 0-15 12-15 capsule by ity of capsule 00:00: 05:59 mouth as [place] 00 :00 needed for Medical Pain Branch (scale 4-6) for up to 60 days. gabapentin 2021-09- No [id number] 300mg Take 1 [facility] 300 mg 0-15 12-15 capsule by ity of capsule 00:00: 05:59 mouth as [place] 00 :00 needed for Medical Pain Branch (scale 4-6) for up to 60 days. gabapentin 2021-09- No [id number] 300mg Take 1 [facility] 300 mg 0-15 12-15 capsule by ity of capsule 00:00: 05:59 mouth as [place] 00 :00 needed for Medical Pain Branch (scale 4-6) for up to 60 days. gabapentin 2021-09- No [id number] 300mg Take 1 [facility] 300 mg 0-15 12-15 capsule by ity of capsule 00:00: 05:59 mouth as [place] 00 :00 needed for Medical Pain Branch (scale 4-6) for up to 60 days. gabapentin 2021-09- No [id number] 300mg Take 1 [facility] 300 mg 0-15 12-15 capsule by ity of capsule 00:00: 05:59 mouth as [place] 00 :00 needed for Medical Pain Branch (scale 4-6) for up to 60 days. gabapentin 2021-09- No [id number] 300mg Take 1 [facility] 300 mg 0-15 12-15 capsule by ity of capsule 00:00: 05:59 mouth as [place] 00 :00 needed for Medical Pain Branch (scale 4-6) for up to 60 days. gabapentin 2021-09- No [id number] 300mg Take 1 [facility] 300 mg 0-15 12-15 capsule by ity of capsule 00:00: 05:59 mouth as [place] 00 :00 needed for Medical Pain Branch (scale 4-6) for up to 60 days. gabapentin 2021-09- No [id number] 300mg Take 1 [facility] 300 mg 0-15 12-15 capsule by ity of capsule 00:00: 05:59 mouth as [place] 00 :00 needed for Medical Pain Branch (scale 4-6) for up to 60 days. gabapentin 2021-09- No [id number] 300mg Take 1 [facility] 300 mg 0-15 12-15 capsule by ity of capsule 00:00: 05:59 mouth as [place] 00 :00 needed for Medical Pain Branch (scale 4-6) for up to 60 days. gabapentin 2021-09- No [id number] 300mg Take 1 [facility] 300 mg 0-15 12-15 capsule by ity of capsule 00:00: 05:59 mouth as [place] 00 :00 needed for Medical Pain Branch (scale 4-6) for up to 60 days. amitriptyli 2021-09- No [id number] 100mg Take 2 [facility] ne 50 mg 0-15 10-23 tablets by ity of tablet 00:00: 04:59 mouth at [place] 00 :00 bedtime Medical for 7 Branch days. amitriptyli 2021-09 No [id number] 100mg Take 2 [facility] ne 50 mg 0-15 10-23 tablets by ity of tablet 00:00: 04:59 mouth at [place] 00 :00 bedtime Medical for 7 Branch days. amitriptyli 2021-09- No [id number] 100mg Take 2 [facility] ne 50 mg [...] 2021-09- No ONCE INTRA U nivers 2% 0-14 10-14 PROCEDURE, ity of (XYLOCAINE) 13:31: 13:36 Starting [place] 20 mg/mL (2 40 :35 on Fri Medica l %) 06/24/22 Branch injection at 0831, Until 06/24/22 at 0836, Routine, CV Intraproce dure vancomycin 2021-09- No CONTINUOUS [facility] 1000 mg in 0-24 06-14 PRN, ity of NS 200 mL 13:30: 13:30 Starting [place] as RTU IV 55 :55 on Mon [facility] Piggyback 06/24/22 Branch at 0830, Until Mon06/24/22 at 0830, Administer over 60 Minutes, CV Intraproce dure metFORMIN 2021-09 Yes 500mg 500 mg, Univ ers (GLUCOPHAGE 0-13 Oral, BID ity of ) tablet 22:00: MEALS, [place] 500 mg 00 First dose Medical on [facility] 06/23/22 at 1700, Until Discontinu ed, Routine metFORMIN 2021-09- No 500mg 500 mg, Uni vers (GLUCOPHAGE 0-23 06- Oral, BID it y of ) tablet 22:00: 21:09 MEALS, [place] 500 mg 00 :41 First dose Medical on [facility] 06/23/22 at 1700, Until Discontinu ed, Routine amLODIPine 2021-09- No 5mg 5 mg, Unive rs (NORVASC) 0- 10- Oral, ity of tablet 5 mg 16:52: 17:31 [place]CE[place] 1 [place] 00 :[place] dose, On [facility] 06/23/22 at 1200, Routine captopriL 2021-09- No 12.5mg 12.5 mg, U nivers (CAPOTEN) 0- 10- Oral, ity of tablet 12.5 04:45: 04:56 [place]CE[place] 1 [place] mg 00 :00 dose, On [facility] 06/22/22 at 2345, Routine labetaloL 2021-09- No 5mg 5 mg, Slow U nivers (NORMODYNE) 0- 10- IV Push, ity of injection 5 03:45: 03:12 [place]CE[place] 1 [place] mg 00 :00 dose, On [facility] 06/22/22 at 2245, Routine vitamin 2021-09- No 1000ug 1,000 mcg, U nivers B-12 0-12 10-15 Oral, ity of (CYANOCOBAL 20:15: 12:15 DAILY, Shawn as CODY) 00 :01 First dose Medical tablet (after Branch 1,000 mcg last modificati on) on Mon06/22/22 at 1515, Until Discontinu ed, Routine tamsulosin 2021-09 No .4mg 0.4 mg, Uni vers (FLOMAX) 0-12 10-15 Oral, ity of capsule 0.4 16:30: 12:15 DAILY, [place] mg 00 :01 First dose Medical on [facility] 06/22/22 at 1130, Until Discontinu [...] First dose Medi joyce 40 mg on [facility] 06/22/22 at 0900, Until Discontinu ed, [...] :53 dose, On Medic al 0.9% (NS) [facility] Branch 100 mL IV 06/22/22 piggyback at 0815, Administer over 15 Minutes, 100 mL magnesium 2021-09 No 4g 4 g, IV Univ ers sulfate in 006-22 Piggyback, it y of water 4 12:15: 15:48 at 25 [place] gram/50 mL 00 :01 mL/hr Medical (8 %) IV Administer Branc h Piggyback 4 over 120 g Minutes, ONCE, 1 dose, On Mon06/22/22 at 0715, Routine amLODIPine 2021-09 No 5mg 5 mg, Unive rs (NORVASC) 0-12 10-13 Oral, ity of tablet 5 mg 08:30: 16:53 DAILY, [place] as 00 :37 First dose Medical on [facility] 06/22/22 at 0330, Until Discontinu ed, Routine melatonin 2021-09 Yes 3mg 3 mg, Univers (MELATIN) 0-12 Oral, QHS, ity of tablet 3 mg 02:00: First dose [place] 00 on [facility] 06/21/22 Branch at 2100, Until Discontinu ed, Routine melatonin 2021-09 No 3mg 3 mg, Univer s (MELATIN) 0-12 10-15 Oral, QHS, ity of tablet 3 mg 02:00: 21:09 First dose [place] 00 :41 on [facility] 06/21/22 [place] at 2100, Until Discontinu ed, Routine hydrOXYzine 2021-09 No 10mg 10 mg, Uni vers (ATARAX) 0- 10-12 Oral, ity of tablet 10 02:00: 01:08 ONCE, 1 [place] mg 00 :00 dose, On Medical [facility] 06/21/22 at 2100, Routine enoxaparin 2021-09 Yes 40mg 40 mg, Unive rs (LOVENOX) 0-11 Subcutaneo ity of injection 22:00: [place], DAILY, [place] 40 mg 00 First dose Medical on [facility] 06/21/22 at 1700, Until Discontinu ed, Routine enoxaparin 2021-09 No 40mg 40 mg, Univ ers (LOVENOX) 0-11 10-15 Subcutaneo ity of injection 22:00: 21:09 us, DAILY, [place] 40 mg 00 :41 First dose Medical on [facility] 06/21/22 at 1700, Until Discontinu ed, Routine hydroCHLORO 2021-09 No 25mg 25 mg, Uni vers thiazide 0-11 10-11 Oral, ity of (ESIDRIX) 19:00: 20:35 DAILY, [place] tablet 25 00 :31 First dose Medi joyce mg (after last modificati on) on Mon06/21/22 at 1400, Until Discontinu ed, Routine Sliding 2021-09 Yes Subcutaneo Univ ers Scale 0-11 us, TID ity of Insulin - 17:00: MEALS+HS, [place] as Lispro 00 First dose Medical (HumaLOG) + on [facility] 06/21/22 Testing at 1200, Until Discontinu ed, Routine Sliding 2021-09- No Subcutaneo Uni vers Scale 0-11 10-15 us, TID ity of Insulin - 17:00: 21:09 MEALS+HS, [place] Lispro 00 :41 First dose Medical (HumaLOG) + on [facility] 06/21/22 Testing at 1200, Until Discontinu ed, Routine sulfur 2021-09- No [id number] 5mL 5 mL, Unive rs hexafluorid 0-11 10-11 Intravenou i ty of e microsphr 17:00: 17:00 s, ONCE, 1 [place] (LUMASON) 00 :00 dose, On Medica l injection 5 [facility] mL 06/21/22 at 1200, Routine
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 Restricted medication : WILTON NICHOLAS enalapril 2021-09 Yes 20mg 20 mg, Univer s (VASOTEC) 0-11 Oral, BID, ity of tablet 20 16:00: First dose [place] mg 00 on [facility] 06/21/22 Branch at 1100, Until Discontinu ed, Routine enalapril 2021-09- No 20mg 20 mg, Unive rs (VASOTEC) 0-11 10-15 Oral, BID, ity of tablet 20 16:00: 21:09 First dose [place] mg 00 :41 on [facility] 06/21/22 Branch at 1100, Until Discontinu ed, Routine dextrose 2021-09 Yes 250mL 250 mL, IV Un teo 10% (D10W) 0-11 Infusion, ity of bolus 15:42: PRN - SEE [place] infusion 37 INSTRUCTIO Medic al 250 mL [...] KIT) 34 Starting Medical injection 1 on Mon [facility] 06/21/22 at 1042, Until Discontinu ed, YOKO, Blood Glucose < or = 70 mg/dL and patient is unable to swallow or has mental changes. glucagon 2021-09- No 1mg 1 mg, Univers (GLUCAGEN 0-11 10-15 Intramuscu ity of DIAGNOSTIC 15:42: 21:09 lar, PRN, [place] KIT) 34 :41 Starting Medical injection 1 on [facility] mg 06/21/22 at 1042, Until 06/25/22 at 1609, YOKO, Blood Glucose < or = 70 mg/dL and patient is unable to swallow or has mental changes. acetaminoph 2021-09 Yes 650mg 650 mg, Un teo en 0-11 Oral, ity of (TYLENOL) 15:21: Q6HPRN, [place] tablet 650 10 Starting Medic al mg on [facility] 06/21/22 at 1021, Until Discontinu ed, Routine, Pain (scale 1-3) acetaminoph 2021-09- No 650mg 650 mg, U nivers en 0-11 -15 Oral, ity of (TYLENOL) 15:21: 21:09 Q6HPRN, [place] tablet 650 10 :41 Starting Medic al mg on [facility] 06/21/22 at 1021, Until 06/25/22 at 1609, Routine, Pain (scale 1-3) melatonin 2021-09- No 3mg 3 mg, Univer s (MELATIN) 06-21 Oral, ity of tablet 3 mg 09:15: 08:30 ONCE, 1 [place] 00 :00 dose, On Medical [facility] 06/21/22 at 0415, Routine aspirin 2021-09- No 325mg 325 mg, Unive rs E.C. 06-21 Oral, ity of (ECOTRIN) 08:30: 08:30 ONCE, 1 [place] tablet 325 00 :00 dose, On Medic al mg [facility] 06/21/22 at 0330, STAT atenoloL 2021-09- No 100mg 100 mg, Univ ers (TENORMIN) 06-21 Oral, ity of tablet 100 03:00: 02:13 ONCE, 1 [place] mg 00 :00 dose, On [facility] 06/20/22 at 2200, Routine cloNIDine 2021-09- No .2mg 0.2 mg, Univ ers (CATAPRES) 006-21 Oral, ity of tablet 0.2 02:15: 02:14 ONCE, 1 [place] mg 00 :00 dose, On [facility] 06/20/22 at 2115, STAT iopamidol 2021-09- No [id number] 150mL 150 mL, Univers (ISOVUE 0-10 10-10 Intravenou ity o f 370-500 mL) 21:15: 21:15 s, ONCE, 1 [place] injection 00 :00 dose, On Medica l 150 mL [facility] 06/20/22 at 1615, Routine acetaminoph 2021-09- No 1000mg 1,000 mg, Univers en 0-10 10-10 Oral, ity of (TYLENOL) 21:00: 20:46 ONCE, 1 [place] tablet 00 :00 dose, On Medical 1,000 mg [facility] 06/20/22 at 1600, YOKO piperacilli 2021-09- No 3.375g 3.375 g, Univers n-tazobacta 0-10 10-11 IV ity of m (ZOSYN) 19:30: 18:13 [place]back, [place] 3.375 g in 00 :39 Q8H ABX, Medic al NaCl 0.9% First dose Bran ch (NS) 100 mL on [place] [facility] MINI-BAG 06/20/22 at 1430, Until Discontinu [...] Medical Piggyback, Branch ONCE, 1 dose, On [place] [facility] 06/20/22 at 1430, STAT tamsulosin 2021- [...] 00 :00 the Medical morning. Branch clopidogreL 0 2021- No TAKE 1 Uni vers 75 mg 9-02 10-15 TABLET BY ity of tablet 00:00: 00:00 MOUTH ONCE [place] 00 :00 DAILY Medical PATIENT Branch NEEDS TO CALL OFFICE TO MAKE AN APPOINTMEN T clopidogreL 2021-2021- No TAKE 1 Uni vers [...] mL) 00 skin. Medical injection Branch insulin 0 Yes 15U QD [facility]ject [facility] INSULIN) 100 unit/mL (3 mL) InPn insulin 0 Yes 15U QD Inject 15 [facility] [...] nightly. INSULIN) 100 unit/mL (3 mL) In Insulin 2022- No 15U inject 15 Univ ers Glargine 7-19 -26 Units ity of 100 unit/mL 00:00: 00:00 under the [place] (3 mL) 00 :00 skin. Medical injection Branch Insulin 2022- No 15U inject 15 Univ ers Glargine 7-29 09-26 Units ity of 100 unit/mL 00:00: 00:00 under the [place] (3 mL) 00 :00 skin. Medical injection Branch Insulin 2022- No 15U inject 15 Univ ers Glargine 7-19 -26 Units ity of 100 unit/mL 00:00: 00:00 under the [place] (3 mL) 00 :00 skin. Medical injection Branch Insulin 2022- No 15U inject 15 Univ ers Glargine 7-29 09-26 Units ity of 100 unit/mL 00:00: 00:00 under the [place] (3 mL) 00 :00 skin. Medical injection Branch memantine 2020- No 5mg Q.5D Take [facility] 5 03-29-19 tablet (5 Corina kes MG tablet 00:00: 23:59 mg total) Me dical 00 :00 by mouth 2 Center (two) times daily. memantine 2020- No 5mg Q.5D Take 1 [facility] 5 - 07-19 tablet (5 Corina kes MG tablet 00:00: 23:59 mg total) Me dical 00 :00 by mouth 2 Center (two) times daily. [facility] 10 2020-0 Yes 10mg QD Take [address] [facility] tablet 7-09 by [facility]: daily. [address] 10 2020-0 Yes 10mg QD Take [address] mg tablet 7-09 by mouth [facility] 00:00: daily. [address] 10 2020-0 Yes 10mg QD Take [address] [facility] mg tablet 7-09 by mouth [facility] 00:00: daily. [address] 10 2020-0 Yes 10mg QD Take [address] mg tablet 7-09 by mouth [facility] 00:00: daily. [address] 10 2020-0 Yes 10mg QD Take [address] [facility] mg tablet 7-09 by mouth [facility] 00:00: daily. [address] 10 2020-0 Yes 10mg QD Take [address] mg tablet 7-09 by mouth [facility] 00:00: daily. [address] 10 2020-0 Yes 10mg QD Take [address] mg tablet 7-09 by mouth [facility] 00:00: daily. [address] 10 2020-0 Yes 10mg QD Take [address] mg tablet 7-09 by mouth [facility] 00:00: daily. [address] 10 2020-0 Yes 10mg QD Take [address] [facility] mg tablet 7-09 by mouth [facility] 00:00: daily. [address] simvastatin 2020-0 Yes 20mg QD Take [address] [facility] (ZOCOR) 20 5-13 by mouth [facility] MG tablet 00:00: nightly. [address] tamsulosin 2020-0 Yes .4mg Take 0.[address] [facility] (FLOMAX) 5-13 mg by [facility] 0.4 mg Cap 00:00: mouth Medica l 24 hr 00 Daily Center capsule (1800). simvastatin 2020-0 Yes 20mg QD Take [address] [facility] (ZOCOR) 20 5-13 by mouth [facility] MG tablet 00:00: nightly. [address] tamsulosin 2020-0 Yes .4mg Take 0.[address] [facility] [facility] (FLOMAX) 5-13 mg by [facility] 0.4 mg Cap 00:00: mouth Medica l 24 hr 00 Daily Center capsule (1800). simvastatin 2020-0 Yes 20mg QD Take [address] [facility] (ZOCOR) 20 5-13 by mouth [facility] MG tablet 00:00: nightly. [address] tamsulosin 2020-0 Yes .4mg Take 0.[address] [facility] (FLOMAX) 5-13 mg by [facility] 0.4 mg Cap 00:00: mouth Medica l 24 hr 00 Daily Center capsule (1800). simvastatin 2020-0 Yes 20mg QD Take [address] (ZOCOR) 20 5-13 by mouth [facility] MG tablet 00:00: nightly. [address] tamsulosin 2020-0 Yes .4mg Take 0.[address] [facility] [facility] (FLOMAX) 5-13 mg by [facility] 0.4 mg Cap 00:00: mouth Medica l 24 hr 00 Daily Center capsule (1800). simvastatin 2020-0 Yes 20mg QD Take [address] (ZOCOR) 20 5-13 by mouth [facility] MG tablet 00:00: nightly. [address] tamsulosin 2020-0 Yes .4mg Take 0.[address] [facility] (FLOMAX) 5-13 mg by [facility] 0.4 mg Cap 00:00: mouth Medica l 24 hr 00 Daily Center capsule (1800). simvastatin 2020-0 Yes 20mg QD Take [address] (ZOCOR) 20 5-13 by mouth [facility] MG tablet 00:00: nightly. [address] tamsulosin 2020-0 Yes .4mg Take 0.[address] [facility] [address] (FLOMAX) 5-13 mg by [facility] 0.4 mg Cap 00:00: mouth Medica l 24 hr 00 Daily Center capsule (1800). simvastatin 2020-0 Yes 20mg QD Take [address] (ZOCOR) 20 5-13 by mouth [facility] MG tablet 00:00: nightly. [address] tamsulosin 2020-0 Yes .4mg Take 0.[address] (FLOMAX) 5-13 mg by [facility] 0.4 mg Cap 00:00: mouth Medica l 24 hr 00 Daily Center capsule (1800). simvastatin 2020-0 Yes 20mg QD Take [address] (ZOCOR) 20 5-13 by mouth [facility] MG tablet 00:00: nightly. [address] tamsulosin 2020-0 Yes .4mg Take 0.[address] [facility] [facility] (FLOMAX) 5-13 mg by [facility] 0.4 mg Cap 00:00: mouth Medica l 24 hr 00 Daily [place] capsule (1800). simvastatin 2020-0 Yes 20mg QD Take [address] (ZOCOR) 20 5-13 by mouth [facility] MG tablet 00:00: nightly. Medi [facility] 00 [place] tamsulosin 2020-0 Yes .4mg Take 0.[address] [facility] [facility] (FLOMAX) 5-13 mg by [facility] 0.4 mg Cap 00:00: mouth Medica l 24 hr 00 Daily [place] capsule (1800). omeprazole 2020-0 Yes 20mg QD Take [address] (PRILOSEC) 5-04 by mouth [facility] 20 MG 00:00: daily. Medical capsule [address] [place] [address] omeprazole 2020-0 Yes 20mg QD Take [address] (PRILOSEC) 5-04 by mouth [facility] 20 MG 00:00: daily. Medical capsule [address] [place] [address] omeprazole 2020-0 Yes 20mg QD Take [address] (PRILOSEC) 5-04 by mouth [facility] 20 MG 00:00: daily. Medical capsule [address] [place] [address] omeprazole 2020-0 Yes 20mg QD Take [address] (PRILOSEC) 5-04 by mouth [facility] 20 MG 00:00: daily. Medical capsule [address] [place] [address] omeprazole 2020-0 Yes 20mg QD Take [address] (PRILOSEC) 5-04 by mouth [facility] 20 MG 00:00: daily. Medical capsule [address] [place] [address] omeprazole 2020-0 Yes 20mg QD Take [address] (PRILOSEC) 5-04 by mouth [facility] 20 MG 00:00: daily. Medical capsule [address] [place] [address] omeprazole 2020-0 Yes 20mg QD Take [address] (PRILOSEC) 5-04 by mouth [facility] 20 MG 00:00: daily. Medical capsule [address] [place] [address] omeprazole 2020-0 Yes 20mg QD Take [address] (PRILOSEC) 5-04 by mouth [facility] 20 MG 00:00: daily. Medical capsule [address] [place] [address] omeprazole 2020-0 Yes 20mg QD Take [address] (PRILOSEC) 5-04 by mouth [facility] 20 MG 00:00: daily. Medical capsule [address] [place] [address] fLUoxetine 2019-0 Yes 20mg QD Take [address] (PROZAC) 20 8-23 by mouth [facility] MG capsule 00:00: daily. [address] 3 Yes 3mg QD Take [address] mg Tab 8-23 by mouth [facility] tablet 00:00: nightly. [address] 3 0 Yes 3mg QD Take [address] mg Tab 8-23 by mouth [facility] tablet 00:00: nightly. [address] fLUoxetine 2018-0 Yes 20mg QD Take [address] (PROZAC) 20 8-23 by mouth Luke s MG capsule 00:00: daily. [address] 3 Yes 3mg QD Take [address] mg Tab 8-23 by mouth [facility] tablet 00:00: nightly. [address] fLUoxetine 2018-0 Yes 20mg QD Take [address] (PROZAC) 20 8-23 by mouth Luke s MG capsule 00:00: daily. [address] 3 Yes 3mg QD Take [address] mg Tab 8-23 by mouth [facility] tablet 00:00: nightly. [address] fLUoxetine 0 Yes 20mg QD Take [address] (PROZAC) 20 8-23 by mouth Luke s MG capsule 00:00: daily. [address] 3 Yes 3mg QD Take [address] mg Tab 8-23 by mouth [facility] tablet 00:00: nightly. [address] fLUoxetine 2019-0 Yes 20mg QD Take [address] (PROZAC) 20 8-23 by mouth Luke s MG capsule 00:00: daily. [address] 3 0 Yes 3mg QD Take [address] mg Tab 8-23 by mouth [facility] tablet 00:00: nightly. [address] fLUoxetine 2019-0 Yes 20mg QD Take [address] (PROZAC) 20 8-23 by mouth Luke s MG capsule 00:00: daily. [address] 3 0 Yes 3mg QD Take [address] mg Tab 8-23 by mouth [facility] tablet 00:00: nightly. [address] fLUoxetine 2019-0 Yes 20mg QD Take [address] (PROZAC) 20 8-23 by mouth Luke s MG capsule 00:00: daily. Medic al 00 [place] melatonin 3 2018- Yes 3mg QD Take [address] mg Tab 8-23 by mouth [facility] tablet 00:00: nightly. [address] fLUoxetine Yes 20mg QD Take [address] (PROZAC) 20 8-23 by mouth Luke s MG capsule 00:00: daily. [facility] al [address] [place] [address] melatonin 3 Yes 3mg QD Take [address] mg Tab 8-23 by mouth [facility] tablet 00:00: nightly. [address] fLUoxetine Yes 20mg QD Take [address] (PROZAC) 20 8-23 by mouth Luke s MG capsule 00:00: daily. [facility] al [address] [place] [address] bisacodyl Yes 10 mg = 1 Mem oria 10 mg 6-19 supp, UT, l rectal 21:04: Daily, PRN E[place]se nn suppository 00 Constipati on, 0 Refill(s) Docusate Yes 100 mg = 1 Mem oria Sodium 100 6-19 cap, PO, l MG Oral 21:04: Q12H, 0 [place] Capsule 00 Refill(s) atorvastati Yes 10 mg = 1 M emoria n 10 mg 6-19 tab, PO, l oral tablet 21:04: Bedtime, 0 [place] 00 Refill(s) sennosides, Yes 8.6 mg = 1 Memoria HALFWAY 8.6 MG 6-19 tab, PO, l Oral Tablet 21:04: Q12H, 0 Her antonio 00 Refill(s) levofloxaci Yes 500 mg = 1 Memoria n 500 mg 6-19 tab, PO, l oral tablet 21:04: [id number], 0 [place] 00 Refill(s) Humalog No Notes: Memoria 6-18 (Same as: l 16:30: Humalog ) [place] 00 Roll in palms of hands gently; Do not shake `vigorousl y. "Single Patient Use Only " WASTE: F/P - Black; E - Municipal Trash Bin Stable for 28 days at room temperatur e. Expires in days from ____Date Insulin 2018-0 No Notes: Memoria Glargine 6-18 Same as: [...] s with feeding tube less than 14 Indonesian (Dobhoff, J-tube etc) and pediatric and patients. With food and full glass of water insulin, No Notes: Memoria isophane 6-16 Roll in l 23:02: palms of [place] 00 hands gently; Do not shake vigorously [...] e. Expires in days from ____Date Insulin, No 4 unit, Memori a Aspart, 02-24 Route: l Human 21:30: SUB-Q, [place] 00 TID-Before Meals, Dosing Weight 81.9, kg, Start date: 02/24/18 16:30:00 CDT, Duration: 30 day, Stop date: 03/26/18 11:30:00 CDT Lasix No Notes: Memoria 6-16 (Same as: l 20:54: Lasix) [place] 00 MEDICATION WASTE Product Size: 40 mg Product Wasted: ___ mg Potassium No Notes: Memori a Chloride 6-16 (Same as: l 12:00: KCL) [place] 00 Infuse over 2 hours. Levofloxaci No 500 mg, 1 M emoria n 6-16 tab, l 11:49: Route: PO, [place] 00 Drug form: TAB, [id number], Dosing Weight 81.9, kg, Priority: NOW, Start [...] Magnesium No Notes: Memori a Sulfate 40 16 WASTE: F/P l MG/ML 11:47: - Sink; E [place] Injection 00 - [facility] Trash Bin Potassium No Notes: Memori a Chloride 6-16 (Same as: l 07:49: KCL) [place] 00 Infuse over 2 hours. Potassium No Notes: Memori a Chloride 6-16 (Same as: l 07:47: K-Dur 20) "Do Not Crush" For patients unable to swallow tablet, dissolve in one half glass of water. Allow about 2 minutes for the tablets to disintegra te. Stir before giving to prepare slurry and administer . Please exclude Patient s with feeding tube less than 14 Indonesian (Dobhoff, J-tube etc) and pediatric and patients. With food and full glass of water potassium No Notes: Memori a phosphate-s -16 (Same as: l odium 07:28: Phos-NaK) [place] phosphate 00 Each 1.5 250 mg-280 gm pkt has mg-160 mg 250mg oral powder phosphorou for s. Mix reconstitut w/2.5oz ion water and stir. Potassium No Notes: Memori a Chloride 6-16 (Same as: l 07:28: KCL) Infuse over 2 hours. Magnesium No Notes: Memori a Sulfate 6-16 WASTE: F/P l 07:28: - Sink; E [place] 00 - Municipal Trash Bin sodium No 15 mmol, 5 Memor ia phosphate 6-16 mL, Route: l 07:28: IVPB, PRN, [place] 00 Dosing Weight 81.9, kg, PRN Abnormal Lab Result, For NON-ICU Patients Only., Start date: 02/24/18 2:28:00 CDT, Duration: 30 day, Stop date: 03/26/18 2:27:00 CDT potassium No Notes: Memori a phosphate 6-16 (Same as: l 07:28: K [place] 00 Phosphate. ) 1 mMol phoshate has 1.47 mEq potassium Infuse over 4 hours Calcium No Notes: Memoria Gluconate 6-16 WASTE: F/P l 07:28: - Sink; E - Municipal Trash Bin Magnesium No Notes: Memori a Oxide 6-16 (Same as: l 07:28: Mag-Ox 400) Magnesium oxide 389ef=657h g elemental magnesium Dose=____m g magnesium oxide [...] No 10 mg, Memori a 6-13 Route: UT, l 14:02: Drug form: SUPP, ONCE, Dosing [...] ia 6-13 Route: PO, l 11:00: Q6H, [place] Dosing Weight 81.9, kg, Start date: 02/21/18 [...] phosphate 6-13 10 mL, l 05:41: Route: [place] 00 IVPB, PRN, Dosing Weight 81.9, kg, PRN Abnormal Lab Result, Start date: 02/21/18 0:41:00 CDT, Duration: 30 day, Stop date: 03/23/18 0:40:00 CDT, FOR ICU USE ONLY potassium No Notes: Memori a phosphate 6-13 (Same as: l 05:41: K [place] 00 Phosphate. ) 1 mMol phoshate has 1.47 mEq potassium Infuse over 4 hours Potassium No Notes: Memori a Chloride 6-13 (Same as: l 05:41: Potassium [place] Chloride) Calcium No Notes: Memoria Carbonate 6-13 (Same As: l 500 MG 05:41: Tums) [place] Chewable 00 Calcium Tablet Carbonate 500 mg [...] WASTE: F/P l 05:41: - Sink; E [place] 00 - Municipal Trash Bin Magnesium No Notes: Memori a Oxide 02-21 (Same as: l 05:41: Mag-Ox [place] 00 400) Magnesium oxide 426mj=695h g elemental magnesium Dose=____m g magnesium oxide (___mg elemental magnesium) Nicardipine No Notes: Dirk reji 02-21 Same as: l 05:40: Cardene [place] 00 Concentrat ion: (0.1 mg/ 1 ml) Sodium No 1,000 mL, Memori a Chloride 02-21 Rate: 75 l 0.9% IV 05:40: ml/hr, [place] 1,000 mL 00 Infuse over: 13.3 hr, Route: IV, Dosing Weight 81.9 kg, Total Volume: 1,000, Start date: 02/21/18 0:40:00 CDT, Duration: 30 day, Stop date: 03/23/18 0:39:00 CDT, 1.95, m2 Vancomycin No 2000 mg: Me moria 02-21 infuse l 05:00: over 2.5 [place] 00 hours For adult patients only: Round to nearest 250 mg per Medical Staff approval MEDICATION WASTE Product Size: 1000 mg Product Wasted: ___ mg cefepime No Notes: Memoria 02-21 (Same As: l 05:00: Maxipime) [place] 00 MEDICATION WASTE Product Size: 1000 mg Product Wasted: ___ mg Lisinopril No Notes: Memor ia 02-21 (Same as: l 02:00: Prinivil, [place] 00 Zestril) atorvastati No Notes: Dirk reji n 6-13 (Same As: l 02:00: Lipitor) [place] 00 heparin No Notes: Memoria sodium, 6-12 porcine l porcine 21:00: heparin [place] 2500 UNT/ML 00 Injectable Solution Tramadol No 50 mg, 1 Memor ia 6-12 tab, l 19:45: Route: PO, Drug form: TAB, Q6H, Dosing Weight 81.9, kg, PRN Pain Score 4-6, Start date: 02/20/18 14:45:00 CDT, Duration: 30 day, Stop date: 03/22/18 14:44:00 CDT Acetaminoph No Notes: Do M emoria en 12 not exceed l 19:42: 4 gm/day. [place] 00 (Same as: Tylenol) Insulin No Notes: Memoria Lispro 12 (Same as: l 14:44: Humalog ) Roll in palms of hands gently; Do not shake `vigorousl y. "Single Patient Use Only " WASTE: F/P - Black; E - Municipal Trash Bin Stable for 28 days at room temperatur e. Expires in days from ____Date Glucagon No 1 mg, Memoria 12 Route: IM, l 14:44: Drug form: PDR/INJ, [...] ia 6-12 (Same as: l 14:00: Prozac, [place] Sarafem) Zocor No Notes: Memoria 6-12 (Same [...] Norvasc) Saline No Notes: Memoria Flush 0.9% 6- (Same as: l 14:00: BD Posiflush) Docusate No Notes: Memoria 6-11 (Same as: l 14:00: Colace) (Do Not Crush) sennosides, No Notes: Dirk erji HALFWAY 6-11 (Same as: l 14:00: Senokot) Levetiracet No Notes: Dirk reji am 6-11 Same as l 14:00: Keppra Mix with 100 mL NS, LR or D5W MEDICATION WASTE Product Size: 500 mg Product Wasted: ___ mg Flomax No Notes: Memoria 6-11 (Same As: l 14:00: Flomax) [place] 00 "Do Not Crush" Protonix No Notes: Memoria 6-11 Tablet l 14:00: should not be chewed or crushed. (Same as: Protonix) ceFAZolin No Route: IV, Me moria (ANES) - [...] CDT, Stop date: 02/19/18 9:32:00 CDT Hydralazine No 10 mg, Dirk reji 02-19 Route: l 13:29: IVP, [place] 00 Q20Min, Dosing Weight 81.9, kg, PRN Elevated BP, Start date: 02/19/18 8:29:00 CDT, Duration: 2 doses or times, Stop date: Limited # of times Labetalol 2018-0 No 10 mg, Memori a 6-11 Route: l 13:29: IVP, [place] 00 Q5Min, Dosing Weight 81.9, kg, PRN Elevated BP, Start date: 02/19/18 8:29:00 CDT, Duration: 5 doses or times, Stop date: Limited # of times Oxycodone 2018-0 No 5 mg, Memoria 6-11 Route: PO, l 13:29: Drug form: [place] 00 TAB, Q4H, Dosing Weight 81.9, kg, [...] 2018-0 No 1,000 mg, M emoria en 611 Route: PO, l 13:29: Drug form: [place] 00 TAB, ONCE, Dosing Weight 81.9, kg, PRN Pain Score 1-3, Start date: 02/19/18 8:29:00 CDT Fentanyl 2018-0 No 50 Memoria 6-11 microgram, l 13:29: Route: [place] 00 IVP, Q5Min, Dosing Weight 81.9, kg, PRN Pain Score 7-10, Priority: Routine, Start date: 02/19/18 8:29:00 CDT, Duration: 2 doses or times, Stop date: Limited # of times Hydromorpho 2018-0 No 0.5 mg, Mem oria ne 6-11 Route: l 13:29: IVP, Austyn 00 Q5Min, Dosing Weight 81.9, kg, PRN Pain Score 7-10, Start date: 02/19/18 8:29:00 CDT, Duration: 4 doses or times, Stop date: Limited # of times Ondansetron 0 No 4 mg, Memor ia 02-19 Route: l 13:29: IVP, ONCE, Dosing Weight 81.9, kg, PRN Nausea & Vomiting, Start date: 02/19/18 8:29:00 CDT Naloxone No 0.4 mg, Memori a 02-19 Route: l 13:29: IVP, Q2MIN, Dosing Weight 81.9, kg, PRN Narcotic Reversal, Start date: 02/19/18 8:29:00 CDT, Duration: 8 doses or times, Stop date: Limited # of times Flumazenil No 0.2 mg, Dirk reji 02-19 Route: l 13:29: IVP, PRN, Dosing Weight 81.9, kg, PRN Benzodiaze pine Reversal, Initial dose, Start date: 02/19/18 8:29:00 CDT, Duration: 30 day, Stop date: 03/21/18 8:28:00 CDT Sodium No Route: IV, Memor ia Chloride 02-19 Total l 0.9% IV 13:06: Volume: Austyn [...] interfere w/enteral feedings Take With Food Potassium 2017-0 No Notes: Memori a Chloride 6-11 (Same as: l 11:00: KCL) Austyn 00 Infuse over 2 hours. Nicardipine 2017-0 No Notes: Dirk reji 6-11 Same as: l 10:56: Cardene [place] Concentrat ion: (0.1 mg/ 1 ml) Labetalol 2018-0 No 10 mg, 2 Dirk reji 6-11 mL, Route: l 10:44: IVP, Drug [place]man form: INJ, Q1H, Dosing Weight 82.8, kg, PRN Hypertensi on, Start date: 02/19/18 5:44:00 CDT, Duration: 30 day, Stop date: 03/21/18 5:43:00 CDT Hydralazine 2017-0 No Notes: Dirk reji 6-11 (Same as: l 10:44: Apresoline [place] ) Push over 5 minutes potassium 2018-0 No 15 mmol, Dirk reji phosphate 6-11 Route: l 10:44: IVPB, PRN, Austyn Dosing Weight 82.8, kg, PRN Abnormal Lab Result, Start date: 02/19/18 5:44:00 CDT, Duration: 30 day, Stop date: 03/21/18 5:43:00 CDT, FOR ICU USE ONLY sodium 2018-0 No 15 mmol, Memoria phosphate 6-11 Route: l 10:44: IVPB, PRN, Austyn Dosing Weight 82.8, kg, PRN Abnormal Lab Result, Start date: 02/19/18 5:44:00 CDT, Duration: 30 day, Stop date: 03/21/18 5:43:00 CDT, FOR ICU USE ONLY Potassium 2018-0 No 20 mEq, Memor ia Chloride 02-19 Route: PO, l 10:44: Drug form: [place] 00 ERTAB, PRN, Dosing Weight 82.8, kg, PRN Abnormal Lab Result, Start date: 02/19/18 5:44:00 CDT, Duration: 30 day, Stop date: 03/21/18 5:43:00 CDT, FOR ICU USE ONLY Calcium 2018-0 No 1,000 mg, Memor ia Carbonate 02-19 Route: PO, l 500 MG 10:44: PRN, [place] Chewable 00 Dosing Tablet Weight 82.8, kg, PRN Abnormal Lab Result, FOR ICU USE ONLY, Start date: 02/19/18 5:44:00 CDT, Duration: 30 day, Stop date: 03/21/18 5:43:00 CDT Calcium 2018-0 No 1 gm, Memoria Gluconate 02-19 Route: l 10:44: IVPB, PRN, [place] 00 Dosing Weight 82.8, kg, PRN Abnormal Lab Result, Start date: 02/19/18 5:44:00 CDT, Duration: 30 day, Stop date: 03/21/18 5:43:00 CDT, FOR ICU USE ONLY Magnesium 2018-0 No 2 gm, Memoria Sulfate 02-19 Route: l 10:44: IVPB, PRN, [place] 00 Dosing Weight 82.8, kg, PRN Abnormal Lab Result, Start date: 02/19/18 5:44:00 CDT, Duration: 30 day, Stop date: 03/21/18 5:43:00 CDT, FOR ICU USE ONLY Magnesium 2018-0 No 800 mg, Memor ia Oxide 02-19 Route: PO, l 10:44: PRN, [place] 00 Dosing Weight 82.8, kg, PRN Abnormal Lab Result, FOR ICU USE ONLY, Start date: 02/19/18 5:44:00 CDT, Duration: 30 day, Stop date: 03/21/18 5:43:00 CDT potassium 2018-0 No 2 pkt, Memori a phosphate-s 6 Route: PO, l odium 10:44: Dosing Aust[place] phosphate 00 Weight 250 mg-280 82.8, kg, mg-160 mg PRN, PRN oral powder Abnormal for Lab reconstitut Result, ion FOR ICU USE ONLY, Start date: 02/19/18 5:44:00 CDT, Duration: 30 day, Stop date: 03/21/18 5:43:00 CDT Calcium No Notes: Memoria Gluconate 6-11 WASTE: F/P l 09:36: - Sink; E [place] - Municipal Trash Bin Calcium No Notes: Memoria Carbonate 6-11 (Same As: l 500 MG 09:36: Tums) [place]yn Chewable 00 Calcium Tablet Carbonate 500 mg = 200 mg elemental calcium Dose = mg calcium carbonate ( mg elemental calcium) sodium No 15 mmol, 5 Memor ia phosphate 6-11 mL, Route: l 09:36: IVPB, PRN, [place] 00 Dosing Weight 82.8, kg, PRN Abnormal [...] Chloride 6-11 (Same as: l 09:36: Potassium [place] 00 Chloride) potassium No Notes: Memori a [...] 09:36: Mag-Ox Austyn 00 400) Magnesium oxide 344wl=337n g elemental magnesium Dose=____m g magnesium oxide [...] 02-19 (Same as: l 09:27: BD [place] Posiflush) Ondansetron No Notes: Dirk reji 02-19 (Same as: l 09:27: Zofran) [place] MEDICATION WASTE Product Size: 4 mg Product Wasted: ___ mg Bisacodyl No Notes: Memori a -11 (Same As: l 09:27: Dulcolax, [place] Bisco-Lax) Acetaminoph No 1 tab, Dirk reji en 325 MG / 02-19 Route: PO, l Hydrocodone 09:27: Drug Form: [place] Bitartrate 00 TAB, 5 MG Oral Dosing Tablet Weight 82.8, kg, Q4H, PRN Pain Score 1-3, Start date: 02/19/18 4:27:00 CDT, Duration: 30 day, Stop date: 03/21/18 4:26:00 CDT Acetaminoph No Notes: Do M emoria en 02-19 not exceed l 09:27: 4 gm/day. Austyn (Same as: Tylenol) Acetaminoph No 1 tab, Dirk reji en 325 MG / 11 Route: PO, l Hydrocodone 09:27: Drug Form: [...] MG ORAL TAB 6-11 ity of 04:52: [address] B COMPLEX 1 Yes None Univer s ORAL TAB 6-11 Entered ity of 04:52: [address] M-VIT ORAL Yes None Univers 6-11 Entered ity of 04:52: [address] PEPCID 20 Yes prn Univers MG ORAL TAB 6-11 ity of 04:52: [address] COMPLEX 1 Yes None Univer s ORAL TAB 6-11 Entered ity of 04:52: [address] M-VIT ORAL Yes None Univers 6-11 Entered ity of 04:52: [address] PEPCID 20 Yes prn Univers MG ORAL TAB 6-11 ity of 04:52: [address] COMPLEX 1 Yes None Univer s ORAL TAB 6-11 Entered ity of 04:52: [address] M-VIT ORAL Yes None Univers 6-11 Entered ity of 04:52: [address] PEPCID 20 Yes prn Univers MG ORAL TAB 6-11 ity of 04:52: [address] 1 Yes None Univer s ORAL TAB 6-11 Entered ity of 04:52: [address] M-VIT ORAL Yes None Univers 6-11 Entered ity of 04:52: [address] PEPCID 20 Yes prn Univers MG ORAL TAB 6-10 ity of 23:52: [address] 1 Yes None Univer s ORAL TAB 6-10 Entered ity of 23:52: [address] M-VIT ORAL Yes None Univers 6-10 Entered ity of 23:52: [address] PEPCID 20 Yes prn Univers MG ORAL TAB 6-10 ity of 23:52: [address] 1 Yes None Univer s ORAL TAB 6-10 Entered ity of 23:52: [address] M-VIT ORAL Yes None Univers 6-10 Entered ity of 23:52: [address] Levetiracet Yes 500 mg = 1 [...] tab, PO, l tablet 15:03: Daily, 0 [place] 00 Refill(s) lisinopril Yes 20 mg = 1 Me moria 20 mg oral 6-05 tab, PO, l tablet 15:03: Q12H, 0 [place] 00 Refill(s) Insulin Yes 25 unit, Memori a Glargine 6-05 SUB-Q, l 100 UNT/ML 15:03: Bedtime, 0 H ermann Injectable 00 Refill(s) Solution [Lantus] amLODIPine Yes 10 mg = 1 Me moria 10 mg oral 6-05 tab, PO, l tablet 15:03: Daily, 0 Austyn 00 Refill(s) Potassium No Notes: Memori a Chloride 6-05 (Same as: l 14:56: K-Dur 20) Austyn 00 "Do Not Crush" For patients unable to swallow tablet, dissolve in one half glass of water. Allow about 2 minutes for the tablets to disintegra te. Stir before giving to prepare slurry and administer . Please exclude Patient s with feeding tube less than 14 Indonesian (Dobhoff, J-tube etc) and pediatric and patients. [...] s with feeding tube less than 14 Indonesian (Dobhoff, J-tube etc) and pediatric and patients. With food and full glass of water Norvasc No Notes: Memoria 6-04 (Same as: l 14:00: Norvasc) [place] 00 potassium No Notes: Memori a chloride [...] s with feeding tube less than 14 Indonesian (Dobhoff, J-tube etc) and pediatric and patients. With food and full glass of water Clonidine No Notes: Memori a 6-03 (Same As: l 21:00: Catapres) [place] 00 Sodium Yes 3 gm = 3 Memoria Chloride 6-03 tab, NJ, l 1000 MG 18:08: TID-Before Herm roxanne Oral Tablet 00 Meals, # 63 tab, 0 Refill(s) Hydralazine Yes PO, Q6H, 0 Memoria Hydrochlori 6-03 Refill(s) l de 100 MG 18:08: [place] Oral Tablet 00 amLODIPine No 5 mg = 1 Mem oria 5 mg oral 02-11 tab, PO, l tablet 18:08: Q12H, 0 Refill(s) Insulin 0 No 60 units) Dirk reji regular 02-10 WASTE: F/P l 23:44: - Black; E [place] 00 - [facility] Trash Bin Stable for 28 days at room temperatur e Expires in days from ____Date Glucagon No 1 mg, Memoria 6- Route: IM, l 23:44: Drug form: [place] PDR/INJ, PRN, Dosing Weight 82.8, kg, PRN Blood Glucose Results, Start date: 02/10/18 18:44:00 CDT, Duration: 30 day, Stop date: 03/12/18 18:43:00 CDT Dextrose No 25 gm, 50 Dirk reji 50% Syringe 02-10 mL, Route: l 23:44: IVP, Drug Form: INJ, Dosing Weight 82.8, kg, PRN, PRN Blood Glucose Results, Start date: 02/10/18 18:44:00 CDT, Duration: 30 day, Stop date: 03/12/18 18:43:00 CDT Sodium 2017- No 3 gm, 3 Memoria Chloride 02-10 tab, l 1000 MG 12:30: Route: [place], Herm roxanne Oral Tablet 00 Drug form: TAB, TID-Before Meals, Dosing Weight 82.8, kg, Start date: 02/10/18 7:30:00 CDT, Duration: 30 day, Stop date: 03/11/18 16:30:00 CDT Potassium 2017-0 No Notes: Memori a Chloride 02-09 (Same as: l 1.33 MEQ/ML 23:56: Potassium H ermann Oral 00 Chloride) Solution Hydralazine No Notes: Dirk reji Hydrochlori 02-09 (Same as: l de 50 MG 23:00: Apresoline Her antonio Oral Tablet ) May interfere w/enteral feedings Take With Food. Hydralazine No 100 mg, Mem oria Hydrochlori 6-01 Route: PO, l de 50 MG 21:00: Drug form: Her antonio Oral Tablet 00 TAB, Q8H, Dosing Weight 82.8, kg, Start date: 02/09/18 16:00:00 CDT, Duration: 30 day, Stop date: 03/11/18 8:00:00 CDT Tylenol No Notes: Max Dirk reji 6-01 acetaminop l 18:34: hen = [place] 00 4000mg/day (4 gm/day). (Same as: Tylenol) hydrALAZINE No Notes: Dirk reji 6-01 (Same as: l 13:19: Apresoline [place]yn 00 ) May interfere w/enteral feedings Take [...] Memoria 5-31 (Same as: l 18:18: Norvasc) Austyn heparin No Notes: Memoria sodium, 5-31 porcine l porcine 14:00: heparin [place] 2500 UNT/ML 00 Injectable Solution Lisinopril No Notes: Memor ia 5-31 (Same as: l 14:00: Prinivil, [place] 00 Zestril) Bystolic No Notes: Memoria 5-31 (same as: l 14:00: Bystolic) [place] 00 Nicardipine No Notes: Dirk reji 5-31 Same as: l 08:09: Cardene [place] 00 Concentrat ion: (0.1 mg/ 1 ml) nebivolol No 10 mg = 1 Mem oria 10 MG Oral 5-31 tab, PO, l Tablet 03:55: Daily, # Sidman [Bystolic] 00 30 tab, 0 Refill(s) Bystolic No PO, Daily, Mem oria 5-31 0 l 03:55: Refill(s) [place] 00 Coreg No Notes: Memoria 5-30 Give with l 22:53: food. Austyn 00 (Same As: Coreg) Lisinopril No Notes: Memor ia 5-30 (Same as: l 13:59: Prinivil, [place] 00 Zestril) Insulin No Notes: Memoria Glargine 5-30 Same as: l 100 UNT/ML 13:58: Lantus) Do H ermann Injectable 00 not hold Solution insulin [Lantus] without contacting prescriber WASTE: F/P - Black; E - Municipal Trash Bin Insulin No 60 units) Dirk reji regular 5-30 WASTE: F/P l 13:57: - Black; E Austyn - Municipal Trash Bin Stable for 28 days at room temperatur e Expires in days from ____Date Dextrose No 25 gm, 50 Dirk reji 50% Syringe 5-30 mL, Route: l 13:57: IVP, Drug [place] 00 Form: INJ, Dosing Weight 82.8, kg, [...] sodium, 5-30 porcine l porcine 13:00: heparin Austyn 2500 UNT/ML 00 Injectable Solution Insulin No [...] l Release 02:00: Melatonin) Herm roxanne Tablet Levetiracet No Notes: Dirk rjei am 5-29 (Same l 23:00: as:Keppra) [place] Sodium No 3 gm, 3 Memoria Chloride 5-29 tab, l 1000 MG 18:00: Route: [place], Herm roxanne Oral Tablet 00 Drug form: TAB, QID, Dosing Weight 82.8, kg, Start date: 02/06/18 13:00:00 CDT, Duration: 30 day, Stop date: 03/08/18 9:00:00 CDT acetaminoph No Notes: Max Memoria en 5-29 acetaminop l 14:48: hen = [place] 4000mg/day (4 gm/day). (Same as: Tylenol) Bystolic No Notes: Memoria 5-29 (same as: l 14:00: Bystolic) Protonix No Notes: Memoria 5-29 Tablet l 14:00: should not be chewed or crushed. (Same as: Protonix) Flomax No Notes: Memoria 5-29 (Same As: l 14:00: Flomax) "Do Not Crush" Tylenol No 100.4 F, Memor ia 5-29 Start l 13:18: date: [place] 02/06/18 8:18:00 CDT, Duration: 30 day, Stop date: 03/08/18 8:17:00 CDT Keppra No Notes: Memoria 5-29 Same as l 11:00: Keppra Mix with 100 mL NS, LR or D5W MEDICATION WASTE Product Size: 500 mg Product Wasted: ___ mg lisinopril No 40 mg = 1 Me moria 40 mg oral 5-29 tab, PO, l tablet 03:54: Daily [place] 00 Fluoxetine Yes 20 mg = 1 Me moria 20 MG Oral 5-29 cap, PO, l Capsule 03:54: Daily [Prozac] gabapentin Yes 300 mg = 1 M emoria 300 MG Oral 5-29 cap, PO, l Capsule 03:54: TID Austyn 00 amitriptyli No 100 mg = 1 [...] 5-29 tab, PO, l Tablet 03:54: Bedtime [place] [Zocor] 00 nebivolol No 10 mg = 1 Mem oria 10 MG Oral 5-29 tab, PO, l Tablet 03:54: Daily Austyn [Bystolic] 00 Tamsulosin Yes 0.4 mg = 1 M emoria hydrochlori 5-29 cap, PO, l de 0.4 MG 03:54: Daily Austyn Oral 00 Capsule [Flomax] Omeprazole Yes 20 mg = 1 Me moria 20 MG 5-29 cap, PO, l Enteric 03:54: Daily [place] Coated 00 Capsule [Prilosec] Insulin No 20 unit, Memori a Glargine 5-29 SUB-Q, l 100 UNT/ML 03:54: Bedtime Herm roxanne Injectable 00 Solution [Lantus] Saline No Notes: Memoria Flush 0.9% 5-29 (Same as: l 02:00: BD [place]yn Posiflush) Docusate No Notes: Memoria 5-29 (Same as: l 02:00: Colace) [place] sennosides, No Notes: Dirk reji HALFWAY -29 (Same as: l 02:00: Senokot) Austyn Tylenol No Notes: Do Memor ia 5-29 not exceed l 01:30: 4 gm/day. Sidman 00 (Same as: Tylenol) Labetalol No 10 [...] (Same As: l 500 MG 01:25: Tums) Sidmanable 00 Calcium Tablet Carbonate 500 mg = 200 mg elemental calcium Dose = mg calcium carbonate ( mg elemental calcium) Magnesium No Notes: Memori a Oxide 02-06 (Same as: l 01:25: Mag-Ox 400) Magnesium oxide 054vp=[id number] g elemental magnesium Dose=____m g magnesium oxide (___mg elemental magnesium) Calcium No Notes: Memoria Gluconate 02-06 WASTE: F/P l 01:25: - Sink; E - Municipal Trash Bin Magnesium No Notes: Memori a Sulfate 02-06 WASTE: F/P l 01:25: - Sink; E - Municipal Trash Bin Potassium No Notes: Memori a Chloride - (Same as: l 01:25: KCL) Infuse no faster than 10 mEq/hr if given peripheral ly. potassium No Notes: Memori a phosphate-s - (Same as: l odium 01:25: Phos-NaK) phosphate 00 Each 1.5 250 mg-280 gm pkt has mg-160 mg 250mg oral powder phosphorou for s. Mix reconstitut w/2.5oz ion water and stir. potassium No Notes: Memori a phosphate -29 (Same as: l 01:25: K Phosphate. ) 1 mMol phoshate has 1.47 mEq potassium Infuse over 4 hours sodium 2018-0 No 30 mmol, Memoria phosphate 5-29 10 mL, l 01:25: Route: [place] 00 IVPB, PRN, Dosing Weight 80, kg, PRN Abnormal Lab Result, Start date: 02/05/18 20:25:00 CDT, Duration: 30 day, Stop date: 03/07/18 20:24:00 CDT, FOR ICU USE ONLY Sodium 2018-0 No 1,000 mL, Memori a Chloride 5-29 1,000 l 0.9% 01:21: ml/hr, Sidman (Bolus) IV 00 Infuse Over: 1 hr, Route: IV, 1,000, Drug form: INJ, ONCE, Priority: STAT, Dosing Weight 80 kg, Start date: 02/05/18 20:21:00 CDT, Stop date: 02/05/18 20:21:00 CDT Sodium 2018-0 No 1,000 mL, Memori a Chloride 5-29 Rate: 50 l 0.9% IV 01:21: ml/hr, Austyn 1,000 mL 00 Infuse over: 20 hr, Route: IV, Dosing Weight 82.8 kg, Total Volume: 1,000, Start date: 02/05/18 20:21:00 CDT, Stop date: 03/07/18 20:20:00 CDT Lorazepam 2017-0 No Notes: Memori a 5-29 (Same as: l 00:29: Ativan) Ativan 2017-0 No Notes: Memoria 5-28 (Same as: l 23:56: Ativan) Ativan 0 No 1 mg, Memoria 5-28 Route: l 23:48: IVP, Drug form: INJ, ONCE, Dosing Weight 80, kg, PRN Anxiety, Start date: 02/05/18 18:48:00 CDT Dextrose 2017-0 No 6.25 gm, Memor ia 50% Syringe 02-05 12.5 mL, l 23:05: Route: Austyn 00 IVP, Drug Form: INJ, Dosing Weight 80, kg, PRN, PRN Abnormal Lab Result, Start date: 02/05/18 18:05:00 CDT, Duration: 30 day, Stop date: 03/07/18 18:04:00 CDT Regular 2018-0 No 60 units) Dirk reji Insulin, 02-05 WASTE: F/P l Human 100 23:05: - Black; E He rmann UNT/ML 00 - Injectable Municipal Solution Trash Bin Stable for 28 days at room temperatur e Expires in days from ____Date Saline No Notes: Memoria Flush 0.9% 02-05 (Same as: l 23:05: BD [place] 00 Posiflush) Sodium No 10,000 mL, Memor ia Chloride 02-05 Rate: 50 l 0.9% IV 23:05: ml/hr, Austyn 93929 mL 00 Infuse over: 200 hr, Route: IV, Dosing Weight 80 kg, Total Volume: 10,000, Start date: 02/05/18 18:05:00 CDT, Duration: 30 day, Stop date: 03/07/18 18:04:00 CDT Acetaminoph No Notes: Do M emoria en 325 MG / 02-05 not exceed l Hydrocodone 23:05: 4gm/day of [place]man Bitartrate 00 acetaminop 10 MG Oral hen. (Same Tablet as: [place] 325/10) Acetaminoph No Notes: Dirk reji en 325 MG / 02-05 (Same as: l Hydrocodone 23:05: [place] Elyse nn Bitartrate 00 325/5) Do 5 MG Oral not exceed Tablet 4gm/day of acetaminop hen. Morphine No Notes: Memoria - (Same l 23:05: as:MORPhin [place]man 00 e Sulfate) Bisacodyl No Notes: Memori a - (Same As: l 23:05: Dulcolax, [place] 00 Bisco-Lax) Keppra No Notes: Memoria - Same as l 22:43: Keppra Mix Austyn 00 with 100 mL NS, LR or D5W MEDICATION WASTE Product Size: 500 mg Product Wasted: ___ mg Cardene 40 No Notes: Memor ia mg in NS 02-05 Same as: l 200 mL 22:37: Cardene [place]man (Titrate.) 00 Concentrat IV 20 mg ion: (0.1 mg/ 1 ml) lisinopriL 2014-09 Yes 40mg Take [address] (PRINIVIL,Z 2-21 by mouth Luke s ESTRIL) 40 00:00: Daily Medica l MG tablet 00 (1800). [place] lisinopriL 2014-09 Yes 40mg Take [address] (PRINIVIL,Z 2-21 by mouth Luke s ESTRIL) 40 00:00: Daily Medica l MG tablet 00 (1800). [place] lisinopriL 2014-09 Yes 40mg Take [address] (PRINIVIL,Z 2-21 by mouth Luke s ESTRIL) 40 00:00: Daily Medica l MG tablet 00 (1800). [place] lisinopriL 2014-09 Yes 40mg Take [address] (PRINIVIL,Z 2-21 by mouth Luke s ESTRIL) 40 00:00: Daily Medica l MG tablet 00 (1800). [place] lisinopriL 2014-09 Yes 40mg Take [address] (PRINIVIL,Z 2-21 by mouth Luke s ESTRIL) 40 00:00: Daily Medica l MG tablet 00 (1800). [place] lisinopriL 2014-09 Yes 40mg Take [address] (PRINIVIL,Z 2-21 by mouth Luke s ESTRIL) 40 00:00: Daily Medica l MG tablet 00 (1800). [place] lisinopriL 2014-09 Yes 40mg Take [address] (PRINIVIL,Z 2-21 by mouth Luke s ESTRIL) 40 00:00: Daily Medica l MG tablet 00 (1800). [place] lisinopriL 2014-09 Yes 40mg Take [address] (PRINIVIL,Z 2-21 by mouth Luke s ESTRIL) 40 00:00: Daily Medica l MG tablet 00 (1800). [place] lisinopriL 2014-09 Yes 40mg Take [address] (PRINIVIL,Z 2-21 by mouth Luke s ESTRIL) 40 00:00: Daily Medica l MG tablet 00 (1800). [place] PROTONIX 40 Yes [id number] 1 tab PO Univers MG ORAL 4-01 daily ity of TBEC 00:00: [address] PROTONIX 40 Yes [id number] 1 tab PO Univers MG ORAL 4-01 daily ity of TBEC 00:00: [place] [facility] PROTONIX 40 2008-0 Yes [id number] 1 tab PO Univers MG ORAL 4-01 daily ity of TBEC 00:00: [place] 00 [facility] PROTONIX 40 2008-0 Yes [id number] 1 tab PO Univers MG ORAL 4-01 daily ity of TBEC 00:00: [place] 00 [facility] PROTONIX 40 2008-0 Yes [id number] 1 tab PO Univers MG ORAL 4-01 daily ity of TBEC 00:00: [place] 00 [facility] PROTONIX 40 2008-0 Yes [id number] 1 tab PO Univers MG ORAL 4-01 daily ity of TBEC 00:00: [place] 00 [facility] PROTONIX 40 2008-0 2- No [id number] 1 tab PO Univers MG ORAL 4-01 10-15 daily ity of TBEC 00:00: 00:00 [place] 00 :00 [facility] PROTONIX 40 2008-0 2- No [id number] 1 tab PO Univers MG ORAL 4-01 10-15 daily ity of TBEC 00:00: 00:00 [place] 00 :00 [facility] ENALAPRIL 2009-0 Yes [id number] 1 tab po Univers MALEATE 20 1-15 BID ity of MG ORAL TAB 00:00: [place] 00 [facility] ENALAPRIL 2009-0 Yes [id number] 1 tab po Univers MALEATE 20 1-15 BID ity of MG ORAL TAB 00:00: [place] 00 [facility] ENALAPRIL 2009-0 Yes [id number] 1 tab po Univers MALEATE 20 1-15 BID ity of MG ORAL TAB 00:00: [place] 00 [facility] ENALAPRIL 2009-0 Yes [id number] 1 tab po Univers MALEATE 20 1-15 BID ity of MG ORAL TAB 00:00: [place] 00 [facility] ENALAPRIL 2008-0 Yes [id number] 1 tab po Univers MALEATE 20 1-15 BID ity of MG ORAL TAB 00:00: [place] 00 [facility] ENALAPRIL 2008-0 Yes [id number] 1 tab po Univers MALEATE 20 1-15 BID ity of MG ORAL TAB 00:00: [place] 00 [facility] ENALAPRIL 2008-0 2022- No [id number] 1 tab po Univers MALEATE 20 1-15 10-15 BID ity of MG ORAL TAB 00:00: 00:00 [place] 00 :00 [facility] ENALAPRIL 2008-0 2022- No [id number] 1 tab po Univers MALEATE 20 1-15 10-15 BID ity of MG ORAL TAB 00:00: 00:00 [place] 00 :00 [facility] HYDROCHLORO 2007-09 Yes [id number] take 1 po Univers THIAZIDE 25 0-30 daily ity of MG ORAL TAB 00:00: [place] 00 [facility] HYDROCHLORO 2007-09 Yes [id number] take 1 po Univers THIAZIDE 25 0-30 daily ity of MG ORAL TAB 00:00: [place] 00 [facility] HYDROCHLORO 2007-09 Yes [id number] take 1 po Univers THIAZIDE 25 0-30 daily ity of MG ORAL TAB 00:00: [place] 00 [facility] HYDROCHLORO 2007- Yes [id number] take 1 po Univers THIAZIDE 25 0-30 daily ity of MG ORAL TAB 00:00: [place] 00 [facility] HYDROCHLORO 2007- Yes [id number] take 1 po Univers THIAZIDE 25 0-30 daily ity of MG ORAL TAB 00:00: [place] 00 [facility] HYDROCHLORO 2007- Yes [id number] take 1 po Univers THIAZIDE 25 0-30 daily ity of MG ORAL TAB 00:00: [place] 00 [facility] HYDROCHLORO 2007- 2022- No [id number] take 1 po Univers THIAZIDE 25 0-30 10-15 daily ity of MG ORAL TAB 00:00: 00:00 [place] 00 :00 [facility] HYDROCHLORO 2007- 2022- No [id number] take 1 po Univers THIAZIDE 25 0-30 [...] tske 2 tab Univers MG ORAL TAB 9-05 21-15 qam and 1 it y of 00:00: 00:00 tab qpm [place] 00 :00 [facility] GLIPIZIDE 5 2021- No tske 2 tab Univers MG ORAL TAB -05 21- qam and 1 it y of 00:00: 00:00 tab qpm [place] 00 :00 [facility] ATENOLOL Yes [id number] one tab po Univers 100 MG ORAL 8-27 daily ity of TAB 00:00: [facility] Branch NORCO Yes 1 tab po Univers 7.5-325 MG 8-27 TID ity of ORAL TAB 00:00: [facility] AMITRIPTYLI Yes 2 tabs QHS Univers NE 50 MG 8-27 ity of ORAL TAB 00:00: [facility] METFORMIN Yes [id number] 1 tab PO Univers 850 MG ORAL 8-27 TID ity of TAB 00:00: [facility] CLONIDINE Yes [id number] take 1 po Univers 0.2 MG ORAL 8-27 qid for 1 ity of TAB 00:00: week, then tid for 1 Medical week, then Branch bid and prn thereafter PRAVASTATIN Yes [id number] take 1 po Univers 40 MG ORAL 8-27 qhs ity of TAB 00:00: [facility] ATENOLOL Yes [id number] one tab po Univers 100 MG ORAL 8-27 daily ity of TAB 00:00: [facility] NORCO Yes 1 tab po Univers 7.5-325 MG 8-27 TID ity of ORAL TAB 00:00: [facility] AMITRIPTYLI Yes 2 tabs QHS Univers NE 50 MG 8-27 ity of ORAL TAB 00:00: [facility] METFORMIN Yes [id number] 1 tab PO Univers 850 MG ORAL 8-27 TID ity of TAB 00:00: [facility] CLONIDINE Yes [id number] take 1 po Univers 0.2 MG ORAL 8-27 qid for 1 ity of TAB 00:00: week, then [place] 00 tid for 1 Medical week, then Branch bid and prn thereafter PRAVASTATIN Yes [id number] take 1 po Univers 40 MG ORAL 8-27 qhs ity of TAB 00:00: [facility] ATENOLOL Yes [id number] one tab po Univers 100 MG ORAL 8-27 daily ity of TAB 00:00: [facility] NORCO Yes 1 tab po Univers 7.5-325 MG 8-27 TID ity of ORAL TAB 00:00: [facility] AMITRIPTYLI Yes 2 tabs QHS Univers NE 50 MG 8-27 ity of ORAL TAB 00:00: [facility] METFORMIN Yes [id number] 1 tab PO Univers 850 MG ORAL 8-27 TID ity of TAB 00:00: [facility] CLONIDINE Yes [id number] take 1 po Univers 0.2 MG ORAL 8-27 qid for 1 ity of TAB 00:00: week, then [place] 00 tid for 1 Medical week, then Branch bid and prn thereafter PRAVASTATIN Yes [id number] take 1 po Univers 40 MG ORAL 8-27 qhs ity of TAB 00:00: [facility] ATENOLOL Yes [id number] one tab po Univers 100 MG ORAL 8-27 daily ity of TAB 00:00: [facility] NORCO Yes 1 tab po Univers 7.5-325 MG 8-27 TID ity of ORAL TAB 00:00: [facility] AMITRIPTYLI Yes 2 tabs QHS Univers NE 50 MG 8-27 ity of ORAL TAB 00:00: [facility] METFORMIN Yes [id number] 1 tab PO [facility] 850 MG ORAL 8-27 TID ity of TAB 00:00: [facility] CLONIDINE Yes [id number] take 1 po [facility] 0.2 MG ORAL 8-27 qid for 1 ity of TAB 00:00: week, then [place] 00 tid for 1 Medical week, then Branch bid and prn thereafter PRAVASTATIN Yes [id number] take 1 po [facility] 40 MG ORAL 8-27 qhs ity of TAB 00:00: [place] [facility] ATENOLOL Yes [id number] one tab po [facility] 100 MG ORAL 8-27 daily ity of TAB 00:00: [place] [facility] NORCO Yes 1 tab po [facility] 7.5-325 MG 8-27 TID ity of ORAL TAB 00:00: [place] [facility] AMITRIPTYLI Yes 2 tabs QHS [facility] [place] 50 MG 8-27 ity of ORAL TAB 00:00: [facility] METFORMIN Yes [id number] 1 tab PO [facility] 850 MG ORAL 8-27 TID ity of TAB 00:00: [place] [facility] CLONIDINE Yes [id number] take 1 po [facility] 0.2 MG ORAL 8-27 qid for 1 ity of TAB 00:00: week, then [place] 00 tid for 1 Medical week, then Branch bid and prn thereafter PRAVASTATIN Yes [id number] take 1 po [facility] 40 MG ORAL 8-27 qhs ity of TAB 00:00: [place] [facility] ATENOLOL Yes [id number] one tab po [facility] 100 MG ORAL 8-27 daily ity of TAB 00:00: [place] [facility] NORCO Yes 1 tab po [facility] 7.5-325 MG 8-27 TID ity of ORAL TAB 00:00: [place] [facility] AMITRIPTYLI Yes 2 tabs QHS [facility] [place] 50 MG 8-27 ity of ORAL TAB 00:00: [place] [facility] METFORMIN Yes [id number] 1 tab PO Univers 850 MG ORAL 8-27 TID ity of TAB 00:00: [place] [facility] CLONIDINE Yes [id number] take 1 po Univers 0.2 MG ORAL 8-27 qid for 1 ity of TAB 00:00: week, then [place] 00 tid for 1 Medical week, then Branch bid and prn thereafter PRAVASTATIN Yes [id number] take 1 po [facility] 40 MG ORAL 8-27 qhs ity of TAB 00:00: [place] 00 [facility] ATENOLOL 2021- No [id number] one tab po Univers 100 MG ORAL [...] 00 :00 [facility] METFORMIN 2021- No [id number] 1 tab PO [facility] 850 MG ORAL 8-27 10-15 TID ity of TAB 00:00: 00:00 [place] 00 :00 [facility] CLONIDINE 2021- No [id number] take 1 po Univers 0.2 MG ORAL 8-27 10-15 qid for 1 it y of TAB 00:00: 00:00 week, then [place] 00 :00 tid for 1 Medical week, then Branch bid and prn thereafter PRAVASTATIN 2021- No [id number] take 1 po [facility] 40 MG ORAL 8-27 10-15 qhs ity of TAB 00:00: 00:00 [place] 00 :00 [facility] ATENOLOL 2021- No [id number] one tab po [facility] 100 MG ORAL [...] 00 :00 [facility] METFORMIN 2021- No [id number] 1 tab PO [facility] 850 MG ORAL 8-27 10-15 TID ity of TAB 00:00: 00:00 [place] 00 :00 [facility] CLONIDINE 2021- No [id number] take 1 po Univers 0.2 MG ORAL 8-27 10-15 qid for 1 it y of TAB 00:00: 00:00 week, then [place] 00 :00 tid for 1 Medical week, then Branch bid and prn thereafter PRAVASTATIN 2007-2021- No [id number] take 1 po [facility] 40 MG ORAL 8-27 10-15 qhs ity of TAB 00:00: 00:00 [place] 00 :00 [facility] CLONIDINE 2007- Yes [id number] 1 tab tid Univers 0.3 MG ORAL 4-30 and prn ity o f TAB 00:00: [place] [facility] CLONIDINE 2007- Yes [id number] 1 tab tid Univers 0.3 MG ORAL 4-30 and prn ity o f TAB 00:00: [place] [facility] CLONIDINE 2007- Yes [id number] 1 tab tid Univers 0.3 MG ORAL 4-30 and prn ity o f TAB 00:00: [place] [facility] CLONIDINE 2007- Yes [id number] 1 tab tid Univers 0.3 MG ORAL 4-30 and prn ity o f TAB 00:00: [place] [facility] CLONIDINE 2007- Yes [id number] 1 tab tid Univers 0.3 MG ORAL 4-30 and prn ity o f TAB 00:00: [place] [facility] CLONIDINE 2007- Yes [id number] 1 tab tid Univers 0.3 MG ORAL 4-30 and prn ity o f TAB 00:00: [place] [facility] CLONIDINE 2007-2021- No [id number] 1 tab tid Univers 0.3 MG ORAL 4-30 10-15 and prn ity of TAB 00:00: 00:00 [place] 00 :00 [facility] CLONIDINE 2007-0 2021- No [id number] 1 tab tid Univers 0.3 MG ORAL 4-30 10-15 and prn ity of TAB 00:00: 00:00 [place] 00 :00 [facility] ASPIRIN 325 2006- Yes [id number] 1 tab U nivers MG ORAL TAB 0-04 daily ity of 00:00: [place] [facility] ASPIRIN 325 2006- Yes [id number] 1 tab U nivers MG ORAL TAB 0-04 daily ity of 00:00: [place] [facility] ASPIRIN 325 2006- Yes [id number] 1 tab U nivers MG ORAL TAB 0-04 daily ity of 00:00: [place] [facility] ASPIRIN 325 2006- Yes [id number] 1 tab U nivers MG ORAL TAB 0-04 daily ity of 00:00: [place] 00 [facility] ASPIRIN 325 2006- Yes [id number] 1 tab U nivers MG ORAL TAB 0-04 daily ity of 00:00: [place] [facility] ASPIRIN 325 2006- Yes [id number] 1 tab U nivers MG ORAL TAB 0-04 daily ity of 00:00: [place] [facility] ASPIRIN 325 2006-2- No [id number] 1 tab Univers MG ORAL TAB 0-04 10-15 daily ity of 00:00: 00:00 [place] 00 :00 Medical Branch ASPIRIN 325 2006-2- No [id number] 1 tab Univers MG ORAL TAB 0-04 10-15 daily ity of 00:00: 00:00 [place] 00 :00 [facility] Branch Immunizations Ordered Filled Immunization Date Status Comments [facility] e Immunization Name Name Influenza Virus 2007-06-20 Completed Universit y of Vaccine 00:00:00 [facility] Influenza Virus 2007-06-20 Completed Universit y of Vaccine 00:00:00 [facility] Influenza Virus 2007-06-20 Completed Universit y of Vaccine 00:00:00 [facility] Influenza Virus 2007-06-20 Completed Universit y of Vaccine 00:00:00 [facility] Influenza Virus 2007-06-20 Completed Universit y of Vaccine 00:00:00 [facility] Influenza Virus 2007-06-20 Completed Universit y of Vaccine 00:00:00 [facility] Influenza Virus 2007-06-20 Completed Universit y of Vaccine 00:00:00 [facility] Influenza Virus 2007-06-20 Completed Universit y of Vaccine 00:00:00 [facility] Influenza Virus 2007-06-20 Completed Universit y of Vaccine 00:00:00 [facility] Influenza Virus 2007-06-20 Completed Universit y of Vaccine 00:00:00 [facility] Influenza Virus 2007-06-20 Completed Universit y of Vaccine 00:00:00 [facility] Influenza Virus 2007-06-20 Completed Universit y of Vaccine 00:00:00 [facility] Influenza Virus 2007-06-20 Completed Universit y of Vaccine 00:00:00 [facility] Influenza Virus 2007-06-20 Completed Universit y of Vaccine 00:00:00 [facility] Influenza Virus 2007-06-20 Completed Universit y of Vaccine 00:00:00 [facility] Influenza Virus 2007-06-20 Completed Universit y of Vaccine 00:00:00 [facility] Influenza Virus 2007-06-20 Completed Universit y of Vaccine 00:00:00 [facility] Influenza Virus 2007-06-20 Completed Universit y of Vaccine 00:00:00 [facility] Influenza Virus 2007-06-20 Completed Universit y of Vaccine 00:00:00 [facility] Influenza Virus 2007-06-20 Completed Universit y of Vaccine 00:00:00 [facility] Influenza Virus 2007-06-20 Completed Universit y of Vaccine 00:00:00 [facility] Influenza Virus 2007-06-20 Completed Universit y of Vaccine 00:00:00 [facility] Influenza Virus 2007-06-20 Completed Universit y of Vaccine 00:00:00 [facility] Influenza Virus 2007-06-20 Completed Universit y of Vaccine 00:00:00 [facility] Influenza Virus 2007-06-20 Completed Universit y of Vaccine 00:00:00 [facility] Influenza Virus 2007-06-20 Completed Universit y of Vaccine 00:00:00 [facility] Influenza Virus 2006-07-26 Completed Universit y of Vaccine 00:00:00 [facility] Influenza Virus 2006-07-26 Completed Universit y of Vaccine 00:00:00 [facility] Influenza Virus 2006-07-26 Completed Universit y of Vaccine 00:00:00 [facility] Influenza Virus 2006-07-26 Completed Universit y of Vaccine 00:00:00 [facility] Influenza Virus 2006-07-26 Completed Universit y of Vaccine 00:00:00 [facility] Influenza Virus 2006-07-26 Completed Universit y of Vaccine 00:00:00 [facility] Influenza Virus 2006-07-26 Completed Universit y of Vaccine 00:00:00 [facility] Influenza Virus 2006-07-26 Completed Universit y of Vaccine 00:00:00 [facility] Influenza Virus 2006-07-26 Completed Universit y of Vaccine 00:00:00 [facility] Influenza Virus 2006-07-26 Completed Universit y of Vaccine 00:00:00 [facility] Influenza Virus 2006-07-26 Completed Universit y of Vaccine 00:00:00 [facility] Influenza Virus 2006-07-26 Completed Universit y of Vaccine 00:00:00 [facility] Influenza Virus 2006-07-26 Completed Universit y of Vaccine 00:00:00 [facility] Influenza Virus 2006-07-26 Completed Universit y of Vaccine 00:00:00 [facility] Influenza Virus 2006-07-26 Completed Universit y of Vaccine 00:00:00 [facility] Influenza Virus 2006-07-26 Completed Universit y of Vaccine 00:00:00 [facility] Influenza Virus 2006-07-26 Completed Universit y of Vaccine 00:00:00 [facility] Influenza Virus 2006-07-26 Completed Universit y of Vaccine 00:00:00 [facility] Influenza Virus 2006-07-26 Completed Universit y of Vaccine 00:00:00 [facility] Influenza Virus 2006-07-26 Completed Universit y of Vaccine 00:00:00 [facility] Influenza Virus 2006-07-26 Completed Universit y of Vaccine 00:00:00 [facility] Influenza Virus 2006-07-26 Completed Universit y of Vaccine 00:00:00 [facility] Influenza Virus 2006-07-26 Completed Universit y of Vaccine 00:00:00 [facility] Influenza Virus 2006-07-26 Completed Universit y of Vaccine 00:00:00 [facility] Influenza Virus 2006-07-26 Completed Universit y of Vaccine 00:00:00 [facility] Influenza Virus 2006-07-26 Completed Universit y of Vaccine 00:00:00 [facility] Vital Signs Vital Name Observation Time Observation Value Comments Source WEIGHT 2020-03-24 76.658 kg 00:00:00 Systolic blood 2022-11-01 129 mm[Hg] University of pressure 17:28:00 [facility] Diastolic blood 2022-11-01 80 mm[Hg] [place] o f pressure 17:28:00 [facility] Heart rate 2022-11-01 77 /min [facility] 17:28:00 [facility] Body temperature 2022-11-01 36.67 Sindhu [facility] 17:28:00 [facility] Respiratory rate 2022-11-01 20 /min [facility] 17:28:00 [facility] Oxygen saturation 2022-11-01 94 /min [facility] Arterial blood 17:28:00 [facility] by Pulse oximetry [place] Body weight 2022-10-31 77.1 kg University of 14:00:00 [facility] BMI 2022-10-31 29.18 kg/m2 University of 14:00:00 [facility] Systolic blood 2022-10-08 139 mm[Hg] University of pressure 15:29:00 [facility] Diastolic blood 2022-10-08 85 mm[Hg] University o f pressure 15:29:00 [facility] Heart rate 2022-10-08 72 /min University of 15:29:00 [facility] Body temperature 2022-10-08 35.56 Sindhu University of 15:29:00 [facility] Respiratory rate 2022-10-08 22 /min University of 15::00 [facility] Oxygen saturation 2022-10-08 96 /min [facility] Arterial blood 15:29:00 [facility] by Pulse oximetry [place] Body height 2022-10-06 162.6 cm University of 22:03:00 [facility] Body weight 2022-10-06 78.926 kg University of 22::00 [facility] BMI 2022-10-06 29.87 kg/m2 University of 22:03:00 [facility] Body weight 2022-09-30 70.308 kg University of 17:27:00 [facility] BMI 2022-09-30 29.87 kg/m2 University of 17:27:00 [facility] Systolic blood 2022-08-03 137 mm[Hg] University of pressure 19::00 [facility] Diastolic blood 2022-08-03 68 mm[Hg] University o f pressure 19::00 [facility] Heart rate 2022-08-03 75 /min University of 19:29:00 [facility] Body temperature 2022-08-03 36.11 Sindhu University of 19::00 [facility] Respiratory rate 2022-08-03 16 /min University of 19:29:00 [facility] Body height 2022-08-03 162.6 cm University of 19:29:00 [facility] Body weight 2022-08-03 70.308 kg University of 19:29:00 [facility] BMI 2022-08-03 26.61 kg/m2 University of 19:29:00 [facility] Systolic blood 2022-06-25 150 mm[Hg] University of pressure 16:28:00 [facility] Diastolic blood 2022-06-25 92 mm[Hg] University o f pressure 16:28:00 [facility] Heart rate 2022-06-25 102 /min University of 16:28:00 [facility] Body temperature 2022-06-25 36.5 Sindhu University of 16:28:00 [facility] Respiratory rate 2022-06-25 20 /min University of 16:28:00 [facility] Oxygen saturation 2022-06-25 91 /min University of in Arterial blood 16:28:00 [facility] by Pulse oximetry [place] Body weight 2022-06-21 71.215 kg University of 15:26:00 [facility] BMI 2022-06-21 26.13 kg/m2 University of 15::00 [facility] Body height 2022-06-20 165.1 cm University of 18:31:00 [facility] Systolic blood 2022-06-24 184 mm[Hg] University of pressure 12:28:00 beena[facility] [place] [facility] [place] bedside Diastolic blood 2022-06-24 105 mm[Hg] dr Hernandez o f pressure 12:28:00 beena/goodwi [place] [facility] [place] bedside Heart rate 2022-06-24 79 /min University of 12:28:00 [facility] Body temperature 2022-06-24 36.5 Sindhu University of 12:28:00 [facility] Respiratory rate 2022-06-24 20 /min University of 12:28:00 [facility] Oxygen saturation 2022-06-24 95 /min University of in Arterial blood 12:28:00 [facility] by Pulse oximetry [place] Body weight 2022-06-21 71.215 kg University of 15::00 [facility] BMI 2022-06-21 26.13 kg/m2 University of 15::00 [facility] Body height 2022-06-20 165.1 cm University of 18:31:00 [facility] Systolic blood 2021-05-11 156 mm[Hg] University of pressure 01::00 [facility] Diastolic blood 2021-05-11 77 mm[Hg] University o f pressure 01:25:00 [facility] Heart rate 2021-05-11 65 /min University of 01:25:00 [facility] Body temperature 2021-05-11 36.94 Sindhu University of :25:00 [facility] Respiratory rate 2021-05-11 18 /min University of :25:00 [facility] Oxygen saturation 2021-05-11 96 /min University of in Arterial blood :25:00 [facility] by Pulse oximetry Branch Body weight 2021-05-10 68.04 kg University of 12:50:00 [facility] WEIGHT 2020-03-24 76.658 kg 00:00:00 Systolic (mm Hg) 2018[facility]02-27 [facility] 18:06:00 Diastolic (mm Hg) 2018-02-27 [facility] 18:06:00 Heart Rate 2018-02-27 [facility] 18:06:00 Temperature Oral 2018-02-27 99.4 F [facility] (F) 18:06:00 Respitory Rate 2018-02-27 [facility] 18:06:00 Systolic (mm Hg) 2018-02-27 [facility] 12:34:00 Diastolic (mm Hg) 2018-02-27 [facility] 12:34:00 Respitory Rate 2018-02-27 [facility] 12:34:00 Temperature Oral 2018-02-27 97.8 F [facility] (F) 12:34:00 Heart Rate 2018-02-27 [facility] [...] [facility] rmann 09:30:00 Diastolic (mm Hg) 2018-02-13 [facility] ermann 09:30:00 Heart Rate 2018-02-13 [facility] 09:30:00 Temperature Oral 2018-02-13 97 F [facility] [place] rmann (F) 09:30:00 Systolic (mm Hg) 2018-02-13 [facility] [place] rmann 04:55:00 Diastolic (mm Hg) 2018-02-13 [facility] [place] ermann 04:55:00 Respitory Rate 2018-02-13 [facility] [...] 2022-11-11 Doctor Unassigned, Universit y of 06:01:00 [place] [facility] EXTERNAL PROVIDER RECORDS 2022-11-10 Doctor Unassigned, Uni versity of 06:01:00 [place] [facility] COVID-19 (ID NOW RAPID 2022-11-01 [facility] y of TESTING) 19:31:00 [facility] POCT GLUCOSE (AUTOMATED) 2022-11-01 Jarvis Milligan Univers ity of 17:45:00 [facility] POCT GLUCOSE (AUTOMATED) 2022-11-01 Jarvis Milligan Univers ity of 13:54:00 [facility] POCT GLUCOSE (AUTOMATED) 2022-11-01 Jarvis Milligan Univers ity of 01:54:00 [facility] POCT GLUCOSE (AUTOMATED) 2022-10-31 Jarvis Milligan Univers ity of 22:16:00 [facility] POCT GLUCOSE (AUTOMATED) 2022-10-31 Jarvis Milligan Univers ity of 17:38:00 [facility] POCT GLUCOSE (AUTOMATED) 2022-10-31 Chel Jarvis Univers ity of 14:35:00 [facility] POCT GLUCOSE (AUTOMATED) 2022-10-31 Jarvis Milligan Univers ity of 03:26:00 [facility] POCT GLUCOSE (AUTOMATED) 2022-10-30 Jarvis Milligan Univers ity of 17:29:00 [facility] POCT GLUCOSE (AUTOMATED) 2022-10-30 Jarvis Milligan Univers ity of 13:45:00 [facility] CBC WITHOUT DIFF 2022-10-30 [facility] 10:52:00 [facility] POCT GLUCOSE (AUTOMATED) 2022-10-30 Jarvis Milligan Univers ity of 01:54:00 [facility] POCT GLUCOSE (AUTOMATED) 2022-10-29 Jarvis Milligan Univers ity of 22:49:00 [facility] POCT GLUCOSE (AUTOMATED) 2022-10-29 Jarvis Milligan Univers ity of 17:47:00 [facility] POCT GLUCOSE (AUTOMATED) 2022-10-29 Jarvis Milligan Univers ity of 13:45:00 [facility] POCT GLUCOSE (AUTOMATED) 2022-10-29 Jarvis Milligan Univers ity of 02:03:00 [facility] POCT GLUCOSE (AUTOMATED) 2022-10-28 Jarvis Milligan Univers ity of 23:28:00 [facility] POCT GLUCOSE (AUTOMATED) 2022-10-28 Jarvis Milligan Univers ity of 18:24:00 [facility] POCT GLUCOSE (AUTOMATED) 2022-10-28 Jarvis Milligan Univers ity of 14:36:00 [facility] BASIC METABOLIC PANEL (NA, K, 2022-10-28 [facility] of CL, CO2, GLUCOSE, BUN, 10:14:00 [facility] ical CREATININE, [place]) Branch CBC WITH DIFF 2022-10-28 [facility] of 10:14:00 [facility] POCT GLUCOSE (AUTOMATED) 2022-10-28 Jarvis Milligan Univers ity of 02:04:00 [facility] POCT GLUCOSE (AUTOMATED) 2022-10-27 Jarvis Milligan Univers ity of 22:35:00 [facility] POCT GLUCOSE (AUTOMATED) 2022-10-27 Jarvis Milligan Univers ity of 17:33:00 [facility] POCT GLUCOSE (AUTOMATED) 2022-10-27 Jarvis Milligan Univers ity of 14:41:00 [facility] POCT GLUCOSE (AUTOMATED) 2022-10-27 Jarvis Milligan Univers ity of 03:31:00 [facility] POCT GLUCOSE (AUTOMATED) 2022-10-26 Raul Rosen Univer sity of 22:30:00 [facility] POCT GLUCOSE (AUTOMATED) 2022-10-26 Raul Rosen Univer sity of 17:32:00 [facility] POCT GLUCOSE (AUTOMATED) 2022-10-26 Raul Rosen Univer sity of 13:26:00 [facility] BASIC METABOLIC PANEL (NA, K, 2022-10-26 [facility] of CL, CO2, GLUCOSE, BUN, 11:36:00 [facility] ica CREATININE, [place]) Branch CBC WITH DIFF 2022-10-26 [facility] of 11:36:00 [facility] MAGNESIUM 2022-10-26 [facility] of 02:30:00 [facility] BASIC METABOLIC PANEL (NA, K, 2022-10-26 [facility] of CL, CO2, GLUCOSE, BUN, 02:30:00 [facility] ical CREATININE, [place]) Branch POCT GLUCOSE (AUTOMATED) 2022-10-26 Raul Rosen Univer sity of 01:48:00 [facility] POCT GLUCOSE (AUTOMATED) 2022-10-25 Raul Rosen Univer sity of 22:14:00 [facility] POCT GLUCOSE (AUTOMATED) 2022-10-25 Raul Rosen Univer sity of 17:33:00 [facility] ROSIO AURIS SURVEILLANCE BY 2022-10-25 Aleksandr Borja of PCR (INFECTION CONTROL 15:47:00 [facility] ical PURPOSES) Branch POCT GLUCOSE (AUTOMATED) 2022-10-25 Raul Rosen [facility] sity of 14:25:00 [facility] POCT GLUCOSE (AUTOMATED) 2022-10-25 Raul Rosen [facility] sity of 13:36:00 [facility] CT ANGIOGRAM HEAD 2022-10-25 Liza Quiroz of 10:18:30 [facility] CT HEAD WO CONTRAST 2022-10-25 Nini Mendenhall [place] of 10:18:30 [facility] CT ANGIOGRAM NECK 2022-10-25 Liza Quiroz [place] of 10:18:30 [facility] BASIC METABOLIC PANEL (NA, K, 2022-10-25 Nini Mendenhall [facility] of CL, CO2, GLUCOSE, BUN, 09:42:00 [facility] ical CREATININE, [place]) [place] CBC WITH DIFF 2022-10-25 Nini Mendenhall [facility] of 09:42:00 [facility] PROTHROMBIN TIME / INR 2022-10-25 Abdirashid [facility] ty of 09:42:00 [facility] ACTIVATED PARTIAL THRMPLAS 2022-10-25 Abdirashid [facility] ersity of ANUSHA 09:42:00 [facility] FIBRINOGEN 2022-10-25 Abdirashid [facility] of 09:42:00 [facility] XR ELBOW <3 VW LEFT 2022-10-25 Liza Quiroz o f 02:12:03 [facility] XR SHOULDER <2 VW LEFT 2022-10-25 Liza Quiroz y of 02:12:03 [facility] XR WRIST 3+ VW LEFT 2022-10-25 Liza Quiroz o f 02:12:03 [facility] CT HEAD WO CONTRAST 2022-10-25 Liza Quiroz o f 01:45:02 [facility] URINE CULTURE 2022-10-25 Liza Quiroz of 00:42:00 [facility] HB ECG ROUTINE & RHYTHM STRIP 2022-10-25 Liza Quiroz iversity of 00:38:10 [facility] URINALYSIS 2022-10-25 Liza Quiroz of 00:32:00 [facility] LIPASE 2022-10-25 Liza Quiroz University of 00:12:00 [facility] MAGNESIUM 2022-10-25 Sukumartnnathalia [facility] of 00:12:00 [facility] TROPONIN I 2022-10-25 Richie [facility] of 00:12:00 [facility] COMP. METABOLIC PANEL (37159) 2022-10-25 Liza Quiroz Un iversity of 00:12:00 [facility] CBC WITH DIFF 2022-10-25 Sukumartnnathalia [facility] of 00:12:00 [facility] PROTHROMBIN TIME / INR 2022-10-25 Sukumartnnathalia [facility] y of 00:12:00 [facility] N-TERMINAL PRO-BNP 2022-10-25 Sukumarsolomon [facility] of 00:12:00 [facility] EMERGENCY DEPARTMENT 2022-10-24 Doctor Unassigned, [facility] ty of DOCUMENTS 06:01:00 [place] [facility] COVID-19 (ID NOW RAPID 2022-10-08 [facility] 14:58:00 [facility] COVID-19 (ID NOW RAPID 2022-10-08 [facility]) 14:58:00 [facility] LAB ONLY COVID INTERPRETATION 2022-10-08 Adelaide Grossman Un iversity of 14:58:00 [facility] POCT GLUCOSE (AUTOMATED) 2022-10-08 Bryan, Univers ity of 14:55:00 [facility] POCT GLUCOSE (AUTOMATED) 2022-10-08 Bryan, Univers ity of 14:55:00 [facility]ATED) 2022-10-08 Bryan, Univers ity of 03:51:00 [facility] POCT GLUCOSE (AUTOMATED) 2022-10-08 Bryan, Univers ity of 03:51:00 [facility] POCT GLUCOSE (AUTOMATED) 2022-10-08 Bryan, Univers ity of 03:10:00 [facility] POCT GLUCOSE (AUTOMATED) 2022-10-08 Bryan, Univers ity of 03:10:00 [facility] COVID-19 (ID NOW RAPID 2022-10-07 Chauncey [facility] y of TESTING) 20:42:00 [facility] LAB ONLY COVID INTERPRETATION 2022-10-07 Adelaide Grossman Un iversity of 20:42:00 [facility] COVID-19 (ID NOW RAPID 2022-10-07 Chauncey [facility] y of TESTING) 20:42:00 [facility] LAB ONLY COVID INTERPRETATION 2022-10-07 Adelaide Grossman Un iversity of 20:42:00 [facility] HB ECG ROUTINE & RHYTHM STRIP 2022-10-07 Bryan, Un iversity of 14:09:51 [facility] HB ECG ROUTINE & RHYTHM STRIP 2022-10-07 Bryan, Un iversity of 14:09:51 [facility] MAGNESIUM 2022-10-07 [facility] of 11:05:00 [facility] BASIC METABOLIC PANEL (NA, K, 2022-10-07 ChaunceyIngaa Un iversity of CL, CO2, GLUCOSE, BUN, 11:05:00 [place] [facility] CREATININE, [place]) Branch CBC WITH DIFF 2022-10-07 [facility] of 11:05:00 [facility] MAGNESIUM 2022-10-07 [facility] of 11:05:00 [facility] BASIC METABOLIC PANEL (NA, K, 2022-10-07 ChaunceyIngaa Un iversity of CL, CO2, GLUCOSE, BUN, 11:05:00 [place] [facility] CREATININE, [place]) Branch CBC WITH DIFF 2022-10-07 [facility] of 11:05:00 [facility] CT HEAD WO CONTRAST 2022-10-06 [facility] o f 21:38:43 [facility] CT HEAD WO CONTRAST 2022-10-06 [facility] o f 21:38:43 [facility] XR CHEST 1 VW 2022-10-06 [facility] 18:00:00 [facility] XR CHEST 1 VW 2022-10-06 [facility] 18:[facility]00 [facility] CARDIAC CATHETERIZATION 2022-10-06 Bryan, Universi ty of 15:30:17 [facility] ELECTROPHYSIOLOGY PROCEDURE 2022-10-06 Bryan, [facility] ersity of 15:30:17 [facility]ED[facility] 2022-10-06 Bryan, [facility] ersity of 15:30:17 [facility] CARDIAC CATHETERIZATION 2022-10-06 [facility] 15:30:17 [facility] ELECTROPHYSIOLOGY PROCEDURE 2022-10-06 Rbyan, [facility] ersity of 15:30:17 [facility] ELECTROPHYSIOLOGY PROCEDURE 2022-10-06 [facility], [facility] ersity of 15:30:17 [facility] CBC WITH DIFF 2022-10-03 [facility] 17:03:00 [facility] PROTHROMBIN TIME / INR 2022-10-03 Bryan, [facility] 17:03:00 [facility] HB ECG ROUTINE & RHYTHM STRIP 2022-08-03 Bryan iversity of 19:36:45 [facility] ASSIGNMENT OF BENEFITS 2022-08-03 Doctor Unassigned, Univer sity of 17:21:11 [place] [facility] EXTERNAL PROVIDER RECORDS 2022-07-07 Doctor Unassigned, Uni versity of 05:01:00 [place] [facility] POCT GLUCOSE (AUTOMATED) 2022-06-25 [facility] ersity of 17:11:00 [facility] POCT GLUCOSE (AUTOMATED) 2022-06-25 Alverto [facility] ersity of 17:11:00 [facility] POCT GLUCOSE (AUTOMATED) 2022-06-25 [facility] of 14:07:00 [facility] POCT GLUCOSE (AUTOMATED) 2022-06-25 Alverto [facility] ersity of 14:07:00 [facility] MAGNESIUM 2022-06-25 Michelle Pelayo University of 10:22:00 [facility] BASIC METABOLIC PANEL (NA, K, 2022-06-25 Michelle Pelayo Un iversity of CL, CO2, GLUCOSE, BUN, 10:22:00 [place] [facility] CREATININE, [place]) Branch CBC WITHOUT DIFF 2022-06-25 Gita [facility] of 10:22:00 [facility] MAGNESIUM 2022-06-25 Gita [facility] of 10:22:00 [facility] BASIC METABOLIC PANEL (NA, K, 2022-06-25 Marlys Pelayoah Un iversity of CL, CO2, GLUCOSE, BUN, 10:22:00 [place] [facility] CREATININE, [place]) Branch CBC WITHOUT DIFF 2022-06-25 Gita [facility] of 10:22:00 [facility] POCT GLUCOSE (AUTOMATED) 2022-06-25 [facility] ersity of 01:29:00 [facility] POCT GLUCOSE (AUTOMATED) 2022-06-25 [facility], [facility] ersity of 01:29:00 [facility] POCT GLUCOSE (AUTOMATED) 2022-06-24 [facility], [facility] ersity of 22:20:00 [facility] POCT GLUCOSE (AUTOMATED) 2022-06-24 [facility], [facility] ersity of 22:20:00 [facility] POCT GLUCOSE (AUTOMATED) 2022-06-24 [facility], [facility] ersity of 18:06:00 [facility] POCT GLUCOSE (AUTOMATED) 2022-06-24 [facility], [facility] ersity of 18:06:00 [facility] CBC WITHOUT DIFF 2022-06-24 [facility] of 17:27:00 [facility] CBC WITHOUT DIFF 2022-06-24 Gita [facility] of 17:27:00 [facility] MAGNESIUM 2022-06-24 Gita [facility] of 17:26:00 [facility] BASIC METABOLIC PANEL (NA, K, 2022-06-24 Michelle Pelayo Un iversity of CL, CO2, GLUCOSE, BUN, 17:26:00 [place] [facility] CREATININE, [place]) Branch MAGNESIUM 2022-06-24 [facility] 17:26:00 [facility] BASIC METABOLIC PANEL (NA, K, 2022-06-24 Marlys Pelayoah Un iversity of CL, CO2, GLUCOSE, BUN, 17:26:00 [facility] ical CREATININE, CA) Branch ELECTROPHYSIOLOGY PROCEDURE 2022-06-24 [facility] ersity of 13:36:26 [facility] ELECTROPHYSIOLOGY PROCEDURE 2022-06-24 [facility] ersity of 13:36:26 [facility] POCT GLUCOSE (AUTOMATED) 2022-06-24 [facility] ersity of 13:01:00 [facility] POCT GLUCOSE (AUTOMATED) 2022-06-24 [facility] ersity of 13:01:00 [facility] POCT GLUCOSE (AUTOMATED) 2022-06-24 [place], [place] Uni versity of 03:58:00 [facility] POCT GLUCOSE (AUTOMATED) 2022-06-24 [place], [place] Uni versity of 03:58:00 [facility]INALYSIS 2022-06-23 [facility] 22:59:00 [facility] URINALYSIS 2022-06-23 [facility] 22:59:00 [facility] POCT GLUCOSE (AUTOMATED) 2022-06-23 [place], [place] Uni versity of 22:38:00 [facility] POCT GLUCOSE (AUTOMATED) 2022-06-23 [place], [place] Uni versity of 22:38:00 [facility] POCT GLUCOSE (AUTOMATED) 2022-06-23 [place], [place] Uni versity of 17:07:00 [facility] POCT GLUCOSE (AUTOMATED) 2022-06-23 [place], [place] Uni versity of 17:07:00 [facility] POCT GLUCOSE (AUTOMATED) 2022-06-23 Low, [place] Uni versity of 12:31:00 [facility] POCT GLUCOSE (AUTOMATED) 2022-06-23 Low, [place] Uni versity of 12:31:00 [facility] MAGNESIUM 2022-06-23 [facility] of 09:22:00 [facility] BASIC METABOLIC PANEL (NA, K, 2022-06-23 Gita [facility] iversity of CL, CO2, GLUCOSE, BUN, 09:22:00 [place] [facility] CREATININE, [place]) Branch CBC WITHOUT DIFF 2022-06-23 edwina [facility] of 09:22:00 [facility] MAGNESIUM 2022-06-23 [facility] of 09:22:00 [facility] BASIC METABOLIC PANEL (NA, K, 2022-06-23 [facility] iversity of CL, CO2, GLUCOSE, BUN, 09:22:00 [place] [facility] CREATININE, CA) Branch CBC WITHOUT DIFF 2022-06-23 [facility] of 09:22:00 [facility] HB ECG ROUTINE & RHYTHM STRIP 2022-06-23 Fawad Muñoz [facility] of 04:21:59 [facility] HB ECG ROUTINE & RHYTHM STRIP 2022-06-23 [facility] of 04:21:59 [facility] POCT GLUCOSE (AUTOMATED) 2022-06-23 [place], [place] Uni versity of 02:30:00 [facility] POCT GLUCOSE (AUTOMATED) 2022-06-23 Low, [place] Uni versity of 02:30:00 [facility] PHOSPHORUS 2022-06-22 [facility] of 22:43:00 [facility] PHOSPHORUS 2022-06-22 [facility] of 22:43:00 [facility] METANEPHRINES, PLASMA 2022-06-22 [facility] of 22:42:00 [facility] POCT GLUCOSE (AUTOMATED) 2022-06-22 Low, [place] Uni versity of 21:59:00 [facility] POCT GLUCOSE (AUTOMATED) 2022-06-22 Low, [place] Uni versity of 21:59:00 [facility] POCT GLUCOSE (AUTOMATED) 2022-06-22 Low, [place] Uni versity of 16:52:00 [facility] POCT GLUCOSE (AUTOMATED) 2022-06-22 Low, [place] Uni versity of 16:52:00 [facility] POCT GLUCOSE (AUTOMATED) 2022-06-22 Low, Ca [place] Uni versity of 13:13:00 [facility] POCT GLUCOSE (AUTOMATED) 2022-06-22 Ca Meléndez Uni versity of 13:13:00 [facility] MAGNESIUM 2022-06-22 [facility] of 10:07:00 [facility] FERRITIN SERUM 2022-06-22 Patricia [facility] of 10:07:00 [facility] VITAMIN B12, LEVEL 2022-06-22 [facility] of 10:07:00 [facility] BASIC METABOLIC PANEL (NA, K, 2022-06-22 Bin Gomez Un iversity of CL, CO2, GLUCOSE, BUN, 10:07:00 [place] [facility] CREATININE, [place]) Branch IRON PANEL 2022-06-22 Patricia [facility] of 10:07:00 [facility] CBC WITH DIFF 2022-06-22 Patricia [facility] of 10:07:00 [facility] MAGNESIUM 2022-06-22 [facility] of 10:07:00 [facility] FERRITIN SERUM 2022-06-22 Patricia [facility] of 10:07:00 [facility] VITAMIN B12, LEVEL 2022-06-22 [facility] of 10:07:00 [facility] BASIC METABOLIC PANEL (NA, K, 2022-06-22 Bin Gomez Un iversity of CL, CO2, GLUCOSE, BUN, 10:07:00 [place] [facility] CREATININE, CA) Branch IRON PANEL 2022-06-22 Patricia [facility] of 10:07:00 [facility] CBC WITH DIFF 2022-06-22 Patricia [facility] of 10:07:00 [facility] POCT GLUCOSE (AUTOMATED) 2022-06-22 Ca Meléndez Uni versity of 00:54:00 [facility] POCT GLUCOSE (AUTOMATED) 2022-06-22 Ca Meléndez Uni versity of 00:54:00 [facility] POCT GLUCOSE (AUTOMATED) 2022-06-21 Srinath Cohen ity of 21:48:00 [facility] POCT GLUCOSE (AUTOMATED) 2022-06-21 Srinath Cohen ity of 21:48:00 [facility] HB ECG ROUTINE & RHYTHM STRIP 2022-06-21 Bin Gomez iversity of 19:13:25 [facility] HB ECG ROUTINE & RHYTHM STRIP 2022-06-21 Mery Gomezid Un iversity of 19:13:25 [facility] TRANSTHORACIC ECHO (TTE) 2022-06-21 SantosfideliaMeryankit Camacho ity of COMPLETE W/ CONTRAST 16:58:45 [facility] TRANSTHORACIC ECHO (TTE) 2022-06-21 Bin Gomez Univers ity of COMPLETE W/ CONTRAST 16:58:45 [facility] POCT GLUCOSE (AUTOMATED) 2022-06-21 Srinath Cohen [facility] ity of 16:35:00 [facility] POCT GLUCOSE (AUTOMATED) 2022-06-21 Srinath Cohen [facility] ity of 16:35:00 [facility] THYROID STIMULATING HORMONE 2022-06-21 Bin Gomez [facility] ersity of 12:08:00 [facility] COMP. METABOLIC PANEL ([id number]) 2022-06-21 Anastasiya Tapia [facility] of 12:08:00 [facility] CBC WITH DIFF 2022-06-21 Anastasiya Tapia [facility] of 12:08:00 [facility] GLYCOSYLATED HEMOGLOBIN (A1C) 2022-06-21 Bin Gomez iversity of 12:08:00 [facility] THYROID STIMULATING HORMONE 2022-06-21 Bin Gomez [facility] ersity of 12:08:00 [facility] COMP. METABOLIC PANEL ([id number]) 2022-06-21 Anastasiya Tapia [facility] of 12:08:00 [facility] CBC WITH DIFF 2022-06-21 Anastasiya Tapia [facility] of 12:08:00 [facility] GLYCOSYLATED HEMOGLOBIN (A1C) 2022-06-21 Bin Gomez iversity of 12:08:00 [facility] COVID-19 (ID NOW RAPID 2022-06-21 Anastasiya Tapia [facility] sity of TESTING) 07:07:00 [facility] LAB ONLY COVID INTERPRETATION 2022-06-21 Anastasiya Tapia [place] of 07:07:00 [facility] COVID-19 (ID NOW RAPID 2022-06-21 Anastasiya Tapia [facility] sity of TESTING) 07:07:00 [facility] LAB ONLY COVID INTERPRETATION 2022-06-21 Anastasiya Tapia [facility] of 07:07:00 [facility] LACTIC ACID WHOLE BLOOD 2022-06-21 Srinath Cohen [facility] ty of 04:05:00 [facility] LACTIC ACID WHOLE BLOOD 2022-06-21 Singer [facility] ty of 04:05:00 [facility] CT HEAD WO CONTRAST 2022-06-21 Singer [facility] o f 00:42:20 [facility] CT HEAD WO CONTRAST 2022-06-21 Singer [facility] o f 00:42:20 [facility] ELECTROENCEPHALOGRAM 2022-06-21 [facility] of 00:00:00 [facility] ELECTROENCEPHALOGRAM 2022-06-21 [facility] of 00:00:00 [facility] LACTIC ACID WHOLE BLOOD 2022-06-20 [facility] of 23:59:00 [facility] LACTIC ACID WHOLE BLOOD 2022-06-20 Singer [facility] ty of 23:59:00 [facility] CT ANGIOGRAM ABDOMEN/PELVIS 2022-06-20 Singer [facility] ersity of 20:21:56 [facility] CT ANGIOGRAM ABDOMEN/PELVIS 2022-06-20 Singer [facility] ersity of 20:21:56 [facility] URINALYSIS 2022-06-20 Singer [facility] of 19:04:00 [facility] URINE CULTURE 2022-06-20 Singer [facility] of 19:04:00 [facility] URINALYSIS 2022-06-20 Singer [facility] of 19:04:00 [facility] URINE CULTURE 2022-06-20 Singer [facility] of 19:04:00 [facility] XR CHEST 1 VW 2022-06-20 Singer [facility] of 18:50:20 [facility] XR CHEST 1 VW 2022-06-20 Singer [facility] of 18:50:20 [facility] BLOOD CULTURE SCREEN 2022-06-20 Singer [facility] of 18:46:00 [facility] BLOOD CULTURE SCREEN 2022-06-20 Singer [facility] of 18:46:00 [facility] BLOOD CULTURE SCREEN 2022-06-20 Singer [facility] of 18:39:00 [facility] TROPONIN I 2022-06-20 Singer [facility] of 18:39:00 [facility] COMP. METABOLIC PANEL ([id number]) 2022-06-20 Srinath Cohen iversity of 18:39:00 [facility] CBC WITH DIFF 2022-06-20 Singer [facility] of 18:39:00 [facility] BLOOD CULTURE SCREEN 2022-06-20 Singer [facility] of 18:39:00 [facility] TROPONIN I 2022-06-20 Singer [facility] of 18:39:00 [facility] COMP. METABOLIC PANEL ([id number]) 2022-06-20 Christopher Cohenip iversity of 18:39:00 [facility] CBC WITH DIFF 2022-06-20 Singer [facility] of 18:39:00 [facility] EKG-12 LEAD 2022-06-20 Singer [facility] of 18:38:36 [facility] EKG-12 LEAD 2022-06-20 Singer [facility] of 18:38:36 [facility] LACTIC ACID WHOLE BLOOD 2022-06-20 Singer Srinath Universi ty of 18:38:00 [facility] LACTIC ACID WHOLE BLOOD 2022-06-20 Singer [facility] Universi ty of 18:38:00 [facility] EMERGENCY DEPARTMENT 2022-06-20 Doctor Unassigned, Universi ty of DOCUMENTS 05:01:00 [place] [facility] HOSPITAL ADMISSION 2022-06-20 Doctor Unassigned, University of 05:01:00 [place] [facility] ASSIGNMENT OF BENEFITS 2021-05-07 Doctor Unassigned, Univer sity of 21:31:03 [place] [facility] Hysterectomy [facility] Plan of Care Planned Activity [facility]00 (12+) [code = [facility] DEPRESSION SCREENING (12+)] Future Scheduled 2022-09-11 [...] 00:00:00 measurement Medical Center (procedure) [code = 17884596] Future Scheduled 2020-09-[address] [facility] 00:[facility]00 [facility] (procedure) [code = 99002300] Future Scheduled 2020-09-[address] [facility] 00:00:00 [facility] (procedure) [code = 59174006] Future Scheduled 2020-09-[address] [facility] 00:00:00 [facility] (procedure) [code = 77309129] Future Scheduled 2020-09-[address] [facility] 00:00:00 [facility] (procedure) [code = 24194945] Future Scheduled 2020-09-[address] [facility] 00:00:00 [facility] (procedure) [code = 19475573] Future Scheduled 2020-09-[address] [facility] 00:00:00 [facility] (procedure) [code = 43520403] Future Scheduled 2020-09-[address] [facility] 00:00:00 [facility] (procedure) [code = 70072313] Future Scheduled 2020-09-[address] [facility] 00:00:00 [facility] (procedure) [code = 24748282] Future Scheduled 2020-09-[address] [...] 00:00:00 (1 of 1 - Medical Center [id number] PCV13) [code = PNEUMOCOCCAL 65+ YRS (1 of 1 - ZKOH12_Tzauufm PCV13)] Future Scheduled 2002 PNEUMOCOCCAL 65+ YRS [facility] 00:00:00 (1 of 1 - [facility] [id number]_Ufcwrre PCV13) [code = PNEUMOCOCCAL 65+ YRS (1 of 1 - VRFV18_Muliwmu PCV13)] Future Scheduled 1999-11-11 MEDICARE ANNUAL [facility] [...] 00:00:00 protein (procedure) Medical Center [code = 169512882] Future Scheduled 1947 DIABETIC EYE EXAM [facility] 00:00:00 [code = DIABETIC EYE Medical Center EXAM] Future Scheduled 1947 Urine screening for [facility] 00:00:00 protein (procedure) Medical Center [code = 573025485] Future Scheduled 1947 [address]ABET[address] EYE EXAM [facility] 00:00:00 [code = DIABETIC EYE Medical Center EXAM] Future Scheduled 1947 Urine screening for [facility] 00:00:00 protein (procedure) Medical Center [code = 960685682] Future Scheduled [address]ABET[address] EYE EXAM [facility] 00:00:00 [code = DIABETIC EYE Medical Center EXAM] Future Scheduled 1947 Urine screening for [facility] 00:00:00 protein (procedure) Medical Center [code = 555421404] Future Scheduled [address]AB[address] EYE EXAM [facility] 00:00:00 [code = DIABETIC EYE Medical Center EXAM] Future Scheduled 1947 Urine screening [facility] 00:00:00 protein (procedure) Medical Center [code = 047628218] Future Scheduled 1947 DIABETIC EYE EXAM [facility] 00:00:00 [code = DIABETIC EYE Medical Center EXAM] Future Scheduled 1947 Urine screening [facility] 00:00:00 protein (procedure) Medical Center [code = 528056355] Future Scheduled 1947 DIABETIC EYE EXAM [facility] 00:00:00 [code = DIABETIC EYE Medical Center EXAM] Future Scheduled 1947 Urine screening for [facility] 00:00:00 protein (procedure) Medical Center [code = 666948111] Future Scheduled [address] DIABET[address] EYE EXAM [facility] 00:00:00 [code = DIABETIC EYE Medical Center EXAM] Future Scheduled 1947 Urine screening for [facility] 00:00:00 protein (procedure) Medical Center [code = 862372192] Future Scheduled 1947 DIABET[address] EYE EXAM [facility] 00:00:00 [code = DIABETIC EYE Medical Center EXAM] Future Scheduled 1947 Urine screening for [facility] 00:00:00 protein (procedure) Medical Center [code = 500578660] Future Scheduled 1943 PNEUMOCOCCAL 65+ YRS [facility] [...] [facility]XA [facility] 00:00:00 SCAN] [facility] Future Scheduled 1937 DXA SCAN [code = DXA [facility] 00:00:00 SCAN] [facility] Future Scheduled 1937 DXA SCAN [code = DXA [facility] 00:00:00 SCAN] [facility] Future Scheduled 1937 DXA SCAN [code = DXA [facility] 00:00:00 SCAN] [facility] Future Scheduled 1937 DXA SCAN [code = DXA [facility] 00:00:00 SCAN] [facility] Future Scheduled 1937 DXA SCAN [code = DXA [facility] 00:00:00 SCAN] [facility] Future Scheduled 1937 DXA SCAN [code = DXA [facility] 00:00:00 SCAN] [facility] Encounters Start End Encounter Admission Attending Care Care Encounter Source Date/Time Date/Time Type Type Clinicians Facility Department ID 2022-10-12 Outpatient [facility] [id number] [place] 11:19:01 [id number] [facility] 2020-03-24 [facility] [id number] [facility] 23:52:00 [facility] Med 2022-12-22 2022-12-22 Outpatient Jordan WINSTON [facility] [id number] Univers 00:00:00 00:00:00 GILBERT ity [facility] 2022-11-11 2022-11-11 [facility] ELIAS Hylton 1.2.840.114 [id number] Univers 07:05:00 23:59:00 Encounter Inez Montejo 350.1.13.10 ity [facility] 4.2.7.2.686 Shawn as [id number] [address] 2022-11-11 2022-11-11 [facility] [id number] Univers 00:00:00 23:59:00 INEZ browny [facility] 2022-11-11 2022-11-11 Orders Doctor TRENT 1.2.840.114 [id number] Univers 00:00:00 00:00:00 Only Unassigned, RAYA 350.1.13.10 ity of [place] [facility] 4.2.7.2.686 Shawn as [id number] [facility] [address] 2022-11-10 2022-11-10 Orders Doctor TRENT 1.2.840.114 [id number] Univers 00:00:00 00:00:00 Only Unassigned, RAYA 350.1.13.10 ity of [place] [facility] 4.2.7.2.686 Shawn as [phone] [facility] [address] [place] 2022-10-24 2022-11-01 [facility] [id number] Univers 17:16:00 17:33:00 JARVIS ity [facility] 2022-10-24 2022-11-01 [facility] Liza Quiroz 1.2.840.11 [id number] Univers 17:16:00 17:33:00 Encounter EstrellahenrryRaul Cole RAYA 350.1.13.10 ity of [facility] 4.2.7.2.686 [place] [id number] [facility] [address] 2022-10-10 2022-10-13 Inpatient E APRYL, [facility] [address] [facility] 13:24:00 18:20:00 CASSIUS 2022-10-11 2022-10-11 [facility] 1.2.840.114 [id number] Univers 00:00:00 00:00:00 [facility] 350.1.13.10 ity of [place] [id number] [facility] [address] OFFICE BUILDING 2022-10-06 2022-10-08 Outpatient R [facility] [id number] Univers 06:20:00 13:18:00 DAYAMI ity [facility] 2022-10-06 2022-10-08 [facility] Maria Elena Betancourt VIKTORIA 1 .2.840.114 [id number] Univers 06:20:00 13:18:00 Encounter Dayami Love RAYA 350.1.1 3.10 ity of [facility] 4.2.7.2.686 Shawn as [id number] [facility] [address] [place] 2022-10-06 2022-10-06 Surgery VIKTORIA Betancourt 1.2.840.114 [id number] Univers 08:00:00 09:45:00 [place] RAYA 350.1.13.10 ity of [facility] 4.2.7.2.686 Shawn as [phone] [facility] [address] [place] 2022-10-03 2022-10-03 Diamond Polisher Criss, Adc Lab Main [facility] 1.2.8 40.114 [id number] Univers 10:30:00 10:45:00 Visit Harini Betancourt 350.1 .13.10 ity of [place] [phone] [place] dical [facility] [address] BUILDING 2022-10-03 2022-10-03 Outpatient R HARINI BETANCOURT [facility] [id number] Univers 10:30:00 10:30:00 HARINI BETANCOURT ity [facility] 2022-09-13 2022-09-13 Telephone VIKTORIA Betancourt 1.2.840.114 [id number] Univers 00:00:00 00:00:00 Chowandaalinanika SOY 350.1.13.10 ity of [facility] 4.2.7.2.686 Shawn as [id number] [facility] [address] [place] 2022-08-08 2022-08-08 Telephone VIKTORIA Betancourt 1.2.840.114 [id number] Univers 00:00:00 00:00:00 [place] RAYA 350.1.13.10 ity of [facility] 4.2.7.2.686 Shawn as [phone] [facility] [address] [place] 2022-08-03 2022-08-03 Hospital VIKTORIA Betancourt 1.2.840.114 [id number] Univers 11:00:00 23:59:00 Encounter Maria Elena SOY 350.1.13.10 ity of [facility] 4.2.7.2.686 Shawn as [id number] [facility] [address] [place] 2022-08-03 2022-08-03 Office SHARIF Betancourt 1.2.840.114 [id number] Univers 13:00:00 13:15:00 Visit [facility] 350.1.13.10 ity of [facility] [place] [id number] [facility] [address] 2022-08-03 2022-08-03 Outpatient R HARINI BETANCOURT [facility] [id number] Univers 13:00:00 13:00:00 HARINI BETANCOURT ity [facility] 2022-08-03 2022-08-03 Orders Doctor TRENT 1.2.840.114 [id number] Univers 00:00:00 00:00:00 Only Unassigned, RAYA 350.1.13.10 [facility] 4.2.7.2.686 Shawn as [id number] [facility] [address] 2022-07-14 2022-07-14 Outpatient R HARINI BETANCOURT [facility] [id number] Univers 16:30:12 23:59:00 HARINI BETANCOURT ity [facility] 2022-07-14 2022-07-14 Hospital VIKTORIA Betancourt 1.2.840.114 [id number] Univers 16:30:12 23:59:00 Encounter Maria Elena RAYA 350.1.13.10 ity of [facility] 4.2.7.2.686 Shawn as [phone] [facility] [address] [place] 2022-07-14 2022-07-14 Telephone VIKTORIA Betancourt 1.2.840.114 [id number] Univers 00:00:00 00:00:00 Chowandakaitlinanika SOY 350.1.13.10 ity of [facility] 4.2.7.2.686 Shawn as [id number] [facility] [address] [place] 2022-07-07 2022-07-07 Orders Doctor TRENT 1.2.840.114 [id number] Univers 00:00:00 00:00:00 Only Unassigned, RAYA 350.1.13.10 ity of [place] [facility] 4.2.7.2.686 Shawn as [id number] [facility] [address] 2022-06-27 2022-06-27 Transition ROSE Macias 1.2.840.114 [id number] Univers 00:00:00 00:00:00 of Care Jamil BERNALY 350.1.13.10 ity of [place] [id number] [facility] [address] 2022-06-20 2022-06-25 Inpatient X [facility] [id number] Univers 13:17:00 13:00:00 [facility]-20 2022-06-25 Hospital Srinath Cohen 1.2.840.1 14 [id number] Univers 13:17:00 13:00:00 Encounter CarlotaAcacia snowden Saima RAYA 350.1.13. 10 ity of [facility] 4.2.7.2.686 [place] [phone] [facility] [address] 2022-06-24 2022-06-24 Surgery VIKTORIA Betancourt 1.2.840.114 [id number] Univers 08:35:00 09:20:00 Maria Elena SOY 350.1.13.10 ity of [facility] 4.2.7.2.686 Shawn as [phone] [facility] [address] 2021-05-10 2021-05-10 Nurse Therapy, Kevin Byrd [facility] 1.2. 840.114 [id number] Univers 19:27:33 20:27:33 Visit Unknown, Attending Health 350.1.13.10 ity of [place] 4.2.7.2.686 Shawn as Terrell?Blea [phone] [place] zahraa [address] Medical Office Building 2021-05-10 2021-05-10 Outpatient R UNKNOWN, [facility] [id number] Univers 19:30:00 19:30:00 ATTENDING ity of [facility] 2021-05-09 2021-05-09 Telephone TRENT Tariq 1.2.818.019 [id number] Univers 00:00:00 00:00:00 Gessica P RAYA 350.1.13.10 ity of [facility] 4.2.7.2.686 Shawn as [phone] [facility] [address] [place] 2021-05-07 2021-05-07 Laboratory Only, Ang Db Test [facility] 1.2.8 40.114 [id number] Univers 17:11:44 17:31:44 [facility] 350.1.13.10 ity [facility] 4.2.7.2.686 Shawn as Terrell?Blea [id number] [address] Medical Office Building 2021-05-07 2021-05-07 Outpatient R PAVAN [facility] [id number] Univers 17:15:00 17:15:00 [facility] 2021-05-07 2021-05-07 Outpatient R PAVAN [facility] [id number] Univers 16:20:00 16:20:00 JUD [facility] 2021-05-07 2021-05-07 Orders Doctor TRENT 1.2.840.114 [id number] Univers 00:00:00 00:00:00 Only Unassigned, RAYA 350.1.13.10 ity of [place] [facility] 4.2.7.2.686 Shawn as [phone] [facility] [address] [place] 2018-04-03 2018-04-05 Phone nullFlavo MNA [id number] Memoria 20:41:00 04:59:59 Message r Neurosurger 07 l y [facility] 2018-03-28 2018-03-30 Phone nullFlavo MNA [id number] Memoria 15:42:00 04:59:59 Message r Neurosurger 06 l y [facility] 2018-03-26 2018-03-28 Phone nullFlavo MNA [id number] Memoria 16:02:00 04:59:59 Message r Neurosurger 05 l y [facility] 2018-03-22 2018-03-22 Ambulatory nullFlavo MNA [id number] Memoria 17:15:00 17:15:00 Pre-Reg r Neurosurger 01 l y [facility] 2018-03-19 2018-03-21 Phone nullFlavo MNA [id number] 55 Memoria 14:29:00 04:59:59 Message r Neurosurger 04 l y [facility] 2018-03-15 2018-03-17 Phone nullFlavo MNA [id number] 55 Memoria 21:01:00 04:59:59 Message r Neurosurger 03 l y [facility] 2018-03-07 2018-03-09 Phone nullFlavo MNA [id number] 55 Memoria 16:18:00 04:59:59 Message r Neurosurger 02 l y [facility] 2018-03-01 2018-03-03 Phone nullFlavo MNA [id number] 55 Memoria 16:12:00 04:59:59 Message r Neurosurger 01 l y [facility] 2018-03-01 2018-03-03 Phone nullFlavo MNA [id number] 55 Memoria 14:43:00 04:59:59 Message r Neurosurger 00 l y [facility] 2018-03-01 2018-03-01 Ambulatory nullFlavo MNA [id number] Memoria 16:15:00 16:15:00 Pre-Reg r Neurosurger 00 l y [facility] 2018-02-19 2018-02-27 Inpatient nullFlavo [facility] [id number] Memoria 07:05:00 21:19:00 [facility] 2018-02-05 2018-02-13 Inpatient nullFlavo [facility] [id number] Memoria 22:15:00 16:22:00 [facility] Results Test Description Test Time Test Comments Results Result Comments Source POCT GLUCOSE (AUTOMATED) 2022-11-01 17:45:48 Test Item Value Reference Range Interpretation Comme nts POCT GLU (test code = 7994281258) 377 mg/dL 70-110 H Lab Interpretation (test code = 72368-4) Abnormal [facility] GLUCOSE (AUTOMATED)2022-11-01 14:03:36 Test Item Value Reference Range Interpretation Comments POCT GLU (test code = 5840536109) 218 mg/dL 70-110 H Lab Interpretation (test code = Abnormal 68012-6) [facility] GLUCOSE (AUTOMATED)2022-11-01 02:05:30 Test Item Value Reference Range Interpretation Comments POCT GLU (test code = 3241380916) 195 mg/dL 70-110 H Lab Interpretation (test code = Abnormal 73283-8) [facility] GLUCOSE (AUTOMATED)2022-10-31 22:18:04 Test Item Value Reference Range Interpretation Comments POCT GLU (test code = 6075102396) 200 mg/dL 70-110 H Lab Interpretation (test code = Abnormal 17995-5) [facility] GLUCOSE (AUTOMATED)2022-10-31 17:40:15 Test Item Value Reference Range Interpretation Comments POCT GLU (test code = 5216294936) 231 mg/dL 70-110 H Lab Interpretation (test code = Abnormal 59353-1) [facility] GLUCOSE (AUTOMATED)2022-10-31 14:36:10 Test Item Value Reference Range Interpretation Comments POCT GLU (test code = 6033947609) 199 mg/dL 70-110 H Lab Interpretation (test code = Abnormal 38668-8) [facility] GLUCOSE (AUTOMATED)2022-10-31 03:28:00 Test Item Value Reference Range Interpretation Comments POCT GLU (test code = 5262683349) 198 mg/dL 70-110 H Lab Interpretation (test code = Abnormal 06159-0) [facility] GLUCOSE (AUTOMATED)2022-10-30 17:40:57 Test Item Value Reference Range Interpretation Comments POCT GLU (test code = 2794647785) 275 mg/dL 70-110 H Lab Interpretation (test code = Abnormal 57528-5) [facility] GLUCOSE (AUTOMATED)2022-10-30 13:56:28 Test Item Value Reference Range Interpretation Comments POCT GLU (test code = 2362903533) 191 mg/dL 70-110 H Lab Interpretation (test code = Abnormal 62783-7) [facility] WITHOUT [id number] 11:10:09 Test Item Value Reference Range Interpretation Comments WBC (test code = 6690-2) 7.95 See_Comment [A utomated message] The system [employer] generated this result transmit timur reference range : 4.30 - 11.10 10*3/?L. The reference range was not used to interpret this result as normal/abnormal . RBC (test code = 789-8) 3.22 See_Comment L [Au tomated message] The system [employer] generated this result transmit timur reference range [...] 277 See_Comment [Au tomated message] The system [employer] generated this result transmit timur reference range : 166 - 358 10*3/?L. The reference range was not used to interpret this result as normal/abnormal . MPV (test code = 8.4 fL 9.5-12.9 L 13647-3) RDW-CV (test code = 13.3 % 12.0-15.5 788-0) RDW-SD (test code = 41.0 fL 39.0-49.9 80089-0) NRBC x10^3 (test code = See_Comment [Au tomated message] 2271277144) The system [employer] generated this result transmit timur reference range : 10*3/?L. The reference range was not used to interpret this result as normal/abnormal . NRBC/100 WBC (test code 0.0 See_Comment [Au tomated message] = 4904013227) The system [employer] generated this result transmit timur reference range : 0.0 - 10.0 /100 WBC s. The reference r fernando was not used to interpret this result as normal/abnormal . IPF % (test code = 7357146952) Lab Interpretation (test Abnormal code = 47300-9) [facility] 02:05:21 Test Item Value Reference Range Interpretation Comments POCT GLU (test code = 2625361753) 256 mg/dL 70-110 H Lab Interpretation (test code = Abnormal 74197-7) [facility] GLUCOSE (AUTOMATED)2022-10-29 22:52:51 Test Item Value Reference Range Interpretation Comments POCT GLU (test code = 7621905661) 193 mg/dL 70-110 H Lab Interpretation (test code = Abnormal 67113-1) [facility] GLUCOSE (AUTOMATED)2022-10-29 18:00:29 Test Item Value Reference Range Interpretation Comments POCT GLU (test code = 6457706590) 328 mg/dL 70-110 H Lab Interpretation (test code = Abnormal 03643-0) [facility] GLUCOSE (AUTOMATED)2022-10-29 14:03:49 Test Item Value Reference Range Interpretation Comments POCT GLU (test code = 2596127720) 214 mg/dL 70-110 H Lab Interpretation (test code = Abnormal 18553-9) [facility] GLUCOSE (AUTOMATED)2022-10-29 02:04:31 Test Item Value Reference Range Interpretation Comments POCT GLU (test code = 240 mg/dL 70-110 H Notifi ed Provider [id number]) Lab Interpretation (test Abnormal code = 06412-1) [facility] GLUCOSE (AUTOMATED)2022-10-28 23:29:03 Test Item Value Reference Range Interpretation Comments POCT GLU (test code = 0608597498) 227 mg/dL 70-110 H Lab Interpretation (test code = Abnormal 96993-9) [facility] GLUCOSE (AUTOMATED)2022-10-28 18:26:14 Test Item Value Reference Range Interpretation Comments POCT GLU (test code = 3480072965) 241 mg/dL 70-110 H Lab Interpretation (test code = Abnormal 36530-6) [facility] GLUCOSE (AUTOMATED)2022-10-28 14:37:46 Test Item Value Reference Range Interpretation Comments POCT GLU (test code = 7434577891) 190 mg/dL 70-110 H Lab Interpretation (test code = Abnormal 12347-8) [facility] METABOLIC PANEL (NA, K, CL, CO2, GLUCOSE, BUN, CREATININE, CA)2022-10-28 11:33:48 Test Item Value Reference Range Interpretation Comments NA (test code = 128 mmol/L 135-145 L 9874106432) K (test code = 4.1 mmol/L 3.5-5.0 7356068813) CL (test code = 99 mmol/L 98-108 2684754510) CO2 TOTAL (test code = 24 mmol/L 23-31 7762292880) AGAP (test code = 5 2-16 6206368924) BUN (test code = 15 mg/dL 7-23 0876773090) GLUCOSE (test code = 169 mg/dL 70-110 H 9141593158) CREATININE (test code = 0.55 mg/dL 0.50-1.04 6132771218) CALCIUM (test code = 8.1 mg/dL 8.6-10.6 L 0638827743) eGFR (test code = 105.0 mL/min/1.73m2 2066978980) WINDY (test code = WINDY) Association of [...] tests). Lab Interpretation Abnormal (test code = 08301-0) [facility] WITH [id number] 10:48:02 Test Item Value Reference Range Interpretation [...] RDW-SD (test code = 40.9 fL 39.0-49.9 86048-3) RDW-CV (test code = 13.6 % 12.0-15.5 788-0) PLT (test code = 287 See_Comment [Automated 777-3) message] The sy stem which generated this result transmitted reference range : 166 - 358 10*3/ ?L. The reference r fernando was not used to interpret this result as normal/abnormal . MPV (test code = 9.3 fL 9.5-12.9 L 06017-7) NRBC/100 WBC (test 0.0 See_Comment [Automat ed code = 7880510457) message] The system which generated this result transmitted reference range : 0.0 - 10.0 /100 WBCs. The refer ence range was not u sed to interpret th is result as normal/abnormal . NRBC x10^3 (test code See_Comment [Auto mated = 7030340015) message] The s ystem which generated this result transmitted reference range : 10*3/?L. The reference range was not used to interpret this result as normal/abnormal . GRAN MAT (NEUT) % 55.1 % (test code = 770-8) IMM GRAN % (test code 0.50 % = 6257412125) LYMPH % (test code = 31.2 % 736-9) MONO % (test code = 11.6 % 5905-5) EOS % (test code = 1.4 % 713-8) BASO % (test code = 0.2 % 706-2) GRAN MAT x10^3(ANC) 3.46 10*3/uL 1.88-7.09 (test code = 3558541578) IMM GRAN x10^3 (test 0.03 10*3/uL 0.00-0.06 code = 4338398414) LYMPH x10^3 (test code 1.96 10*3/uL 1.32-3.29 = 731-0) MONO x10^3 (test code 0.73 10*3/uL 0.33-0.92 = 742-7) EOS x10^3 (test code = 0.09 10*3/uL 0.03-0.39 711-2) BASO x10^3 (test code 0.01-0.07 = 704-7) Lab Interpretation Abnormal (test code = 55135-9) [facility] GLUCOSE (AUTOMATED)2022-10-28 02:11:22 Test Item Value Reference Range Interpretation Comments POCT GLU (test code = 0709041489) 268 mg/dL 70-110 H Lab Interpretation (test code = Abnormal 25868-5) [facility] GLUCOSE (AUTOMATED)2022-10-27 22:40:13 Test Item Value Reference Range Interpretation Comments POCT GLU (test code = 1525688671) 151 mg/dL 70-110 H Lab Interpretation (test code = Abnormal 58924-6) [facility] GLUCOSE (AUTOMATED)2022-10-27 17:35:16 Test Item Value Reference Range Interpretation Comments POCT GLU (test code = 0998642154) 239 mg/dL 70-110 H Lab Interpretation (test code = Abnormal 62747-8) [facility] GLUCOSE (AUTOMATED)2022-10-27 14:42:18 Test Item Value Reference Range Interpretation Comments POCT GLU (test code = 1725099189) 221 mg/dL 70-110 H Lab Interpretation (test code = Abnormal 12584-6) [facility] GLUCOSE (AUTOMATED)2022-10-27 03:32:29 Test Item Value Reference Range Interpretation Comments POCT GLU (test code = 258 mg/dL 70-110 H Notifi ed Provider [id number]) Lab Interpretation (test Abnormal code = 37820-9) [facility] GLUCOSE (AUTOMATED)2022-10-26 22:32:49 Test Item Value Reference Range Interpretation Comments POCT GLU (test code = 176 mg/dL 70-110 H Notifi ed Provider [id number]) Lab Interpretation (test Abnormal code = 30344-6) [facility] GLUCOSE (AUTOMATED)2022-10-26 17:34:42 Test Item Value Reference Range Interpretation Comments POCT GLU (test code = 307 mg/dL 70-110 H Notifi ed Provider [id number]) Lab Interpretation (test Abnormal code = 11647-1) [facility] GLUCOSE (AUTOMATED)2022-10-26 13:30:00 Test Item Value Reference Range Interpretation Comments POCT GLU (test code = 239 mg/dL 70-110 H Notifi ed Provider [id number]) Lab Interpretation (test Abnormal code = 59866-2) [facility] 03:40:06 Test Item Value Reference Range Interpretation Comments POCT GLU (test code = 225 mg/dL 70-110 H Notifi ed Provider [id number]) Lab Interpretation (test Abnormal code = 63598-0) [facility] 01:50:16 Test Item Value Reference Range Interpretation Comments POCT GLU (test code = 5351112675) 240 mg/dL 70-110 H Lab Interpretation (test code = Abnormal 65157-4) [facility] GLUCOSE (AUTOMATED)2022-10-25 22:16:54 Test Item Value Reference Range Interpretation Comments POCT GLU (test code = 0640491365) 188 mg/dL 70-110 H Lab Interpretation (test code = Abnormal 89887-5) [facility] GLUCOSE (AUTOMATED)2022-10-25 17:34:44 Test Item Value Reference Range Interpretation Comments POCT GLU (test code = 176 mg/dL 70-110 H Notifi ed Provider [id number]) Lab Interpretation (test Abnormal code = 18761-2) [facility] 14:26:21 Test Item Value Reference Range Interpretation Comments POCT GLU (test code = 8133250697) 205 mg/dL 70-110 H Lab Interpretation (test code = Abnormal 85691-7) [facility] METABOLIC PANEL (NA, K, CL, CO2, GLUCOSE, BUN, CREATININE, CA)2022-10-25 10:29:58 Test Item Value Reference Range Interpretation Comments NA (test code = 127 mmol/L 135-145 L 4626749861) K (test code = 3.8 mmol/L 3.5-5.0 5893394733) CL (test code = 90 mmol/L 98-108 L 3545746040) CO2 TOTAL (test code = 29 mmol/L 23-31 0532019527) AGAP (test code = 8 2-16 5451128176) BUN (test code = 21 mg/dL 7-23 3823392497) GLUCOSE (test code = 203 mg/dL 70-110 H 9210108873) CREATININE (test code = 0.68 mg/dL 0.50-1.04 4474180748) CALCIUM (test code = 8.8 mg/dL 8.6-10.6 1149136030) eGFR (test code = 82.2 mL/min/1.73m2 8680794793) WINDY (test code = WINDY) Association of [...] tests). Lab Interpretation Abnormal (test code = 40453-1) [facility]19 Test Item Value Reference Range Interpretation Comments APTT Patient (test code 63 See_Comment H [Au tomated message] = 3173-2) The system [employer] generated this result transmitted ref erence range: 26 - 36 Seconds. The reference range was not used to int erpret this result as normal/abnormal . Lab Interpretation (test Abnormal code = 30923-6) [facility] 10:25:19 Test Item Value Reference Range Interpretation Comments Fibrinogen (test code = 1501786416) 574 mg/dL 167-453 H Lab Interpretation (test code = Abnormal 24154-9) [facility] / [id number] 10:25:18 Test Item Value Reference Range Interpretation Comments PROTIME PATIENT (test 11.9 See_Comment [Auto mated message] code = 5964-2) The system [employer] generated this result transmitted ref erence range: 10.1 - 1 2.6 Seconds. The re ference range was not u sed to interpret this result as normal/abnor mal. INR (test code = 6301-6) 1.1 Nor mal INR <1.1; Warfarin Therap eutic range 2.0 to 3. 0 or 2.5 to 3.5, dep ending upon the indica tions. Lab Interpretation (test Normal code = 14949-7) [facility] with [id number] 10:19:38 Test Item Value Reference Range Interpretation [...] RDW-SD (test code = 39.8 fL 39.0-49.9 15589-8) RDW-CV (test code = 13.3 % 12.0-15.5 788-0) PLT (test code = 333 See_Comment [Automated 777-3) message] The sy stem which generated this result transmitted reference range : 166 - 358 10*3/ ?L. The reference r fernando was not used to interpret this result as normal/abnormal . MPV (test code = 9.3 fL 9.5-12.9 L 38591-6) NRBC/100 WBC (test 0.0 See_Comment [Automat ed code = 0527140707) message] The system which generated this result transmitted reference range : 0.0 - 10.0 /100 WBCs. The refer ence range was not u sed to interpret th is result as normal/abnormal . NRBC x10^3 (test code See_Comment [Auto mated = 3968253816) message] The s ystem which generated this result transmitted reference range : 10*3/?L. The reference range was not used to interpret this result as normal/abnormal . GRAN MAT (NEUT) % 70.8 % (test code = 770-8) IMM GRAN % (test code 0.40 % = 7542455843) LYMPH % (test code = 18.2 % 736-9) MONO % (test code = 10.1 % 5905-5) EOS % (test code = 0.3 % 713-8) BASO % (test code = 0.2 % 706-2) GRAN MAT x10^3(ANC) 7.00 10*3/uL 1.88-7.09 (test code = 7419450650) IMM GRAN x10^3 (test 0.04 10*3/uL 0.00-0.06 code = 8232562421) LYMPH x10^3 (test code 1.80 10*3/uL 1.32-3.29 = 731-0) MONO x10^3 (test code 1.00 10*3/uL 0.33-0.92 H = 742-7) EOS x10^3 (test code = 0.03 10*3/uL 0.03-0.39 711-2) BASO x10^3 (test code 0.01-0.07 = 704-7) Lab Interpretation Abnormal (test code = 26471-2) [facility] 02:02:22 Test Item Value Reference Range Interpretation Comments MAGNESIUM (test code = 8910500299) 1.6 mg/dL 1.7-2.4 L Lab Interpretation (test code = Abnormal 95916-8) [facility] [id number] 00:49:15 Test Item Value Reference Range Interpretation Comments NT-proBNP (test code = 444 pg/mL <=450 6384516694) WINDY (test code = WINDY) Biotin has been reported to cause a negative bias, interpret results relative to patient's use of biotin. Lab Interpretation (test Normal code = 36149-2) [facility] [id number] 00:41:33 Test Item Value Reference Range Interpretation Comments TROPONIN I (test code = 0.006 ng/mL <=0.034 1435100030) WINDY (test code = WINDY) Reference (Normal) [...] biotin. Lab Interpretation Normal (test code = 64724-1) [facility]. METABOLIC PANEL (59880)2022-10-25 00:41:13 Test Item Value Reference Range Interpretation Comments NA (test code = 122 mmol/L 135-145 L 8927662943) K (test code = 4.1 mmol/L 3.5-5.0 3690144106) CL (test code = 88 mmol/L 98-108 L 7253093372) CO2 TOTAL (test code = 23 mmol/L 23-31 8775354578) AGAP (test code = 11 2-16 5268311272) BUN (test code = 25 mg/dL 7-23 H 4978602346) GLUCOSE (test code = 206 mg/dL 70-110 H 7226677580) CREATININE (test code = 0.77 mg/dL 0.50-1.04 7988799439) TOTAL BILI (test code = 0.5 mg/dL 0.1-1.0 2007077619) CALCIUM (test code = 9.0 mg/dL 8.6-10.6 2458898040) T PROTEIN (test code = 6.8 g/dL 6.3-8.2 7049556848) ALBUMIN (test code = 4.0 g/dL 3.5-5.0 4095418449) ALK PHOS (test code = 87 U/L 34-122 5464941886) ALTv (test code = 16 U/L 5-35 1742-6) AST(SGOT) (test code = 20 U/L 13-40 2815025154) eGFR (test code = 71.2 mL/min/1.73m2 6338466431) WINDY (test code = WINDY) Association of [...] tests). Lab Interpretation Abnormal (test code = 28412-8) [facility] 00:40:33 Test Item Value Reference Range Interpretation Comments LIPASE (test code = 0336400895) 39 U/L 0-220 Lab Interpretation (test code = Normal 71331-4) [facility] / [id number] 00:26:52 Test Item Value Reference Range Interpretation Comments PROTIME PATIENT (test 13.1 See_Comment [Auto mated message] code = 5964-2) The system [employer] generated this result transmitted ref erence range: 12.0 - 1 4.7 Seconds. The re ference range was not u sed to interpret this result as normal/abnor mal. INR (test code = 6301-6) 1.0 Nor mal INR <1.1; Warfarin Therap eutic range 2.0 to 3. 0 or 2.5 to 3.5, dep ending upon the indica tions. Lab Interpretation (test Normal code = 86795-7) [facility] WITH [id number] 00:19:53 Test Item Value Reference Range Interpretation [...] RDW-SD (test code = 39.7 fL 39.0-49.9 85513-6) RDW-CV (test code = 13.3 % 12.0-15.5 788-0) PLT (test code = 379 See_Comment H [Automated 777-3) message] The sy stem which generated this result transmitted reference range : 166 - 358 10*3/ ?L. The reference r fernando was not used to interpret this result as normal/abnormal . MPV (test code = 9.2 fL 9.5-12.9 L 72238-3) NRBC/100 WBC (test 0.0 See_Comment [Automat ed code = 2714332315) message] The system which generated this result transmitted reference range : 0.0 - 10.0 /100 WBCs. The refer ence range was not u sed to interpret th is result as normal/abnormal . NRBC x10^3 (test code See_Comment [Auto mated = 6018444740) message] The s ystem which generated this result transmitted reference range : 10*3/?L. The reference range was not used to interpret this result as normal/abnormal . GRAN MAT (NEUT) % 70.3 % (test code = 770-8) IMM GRAN % (test code 0.80 % = 5422483213) LYMPH % (test code = 18.7 % 736-9) MONO % (test code = 9.8 % 5905-5) EOS % (test code = 0.2 % 713-8) BASO % (test code = 0.2 % 706-2) GRAN MAT x10^3(ANC) 8.90 10*3/uL 1.88-7.09 H (test code = 2595594700) IMM GRAN x10^3 (test 0.10 10*3/uL 0.00-0.06 H code = 4226160789) LYMPH x10^3 (test code 2.36 10*3/uL 1.32-3.29 = 731-0) MONO x10^3 (test code 1.24 10*3/uL 0.33-0.92 H = 742-7) EOS x10^3 (test code = 0.03 10*3/uL 0.03-0.39 711-2) BASO x10^3 (test code 0.01-0.07 = 704-7) Lab Interpretation Abnormal (test code = 09600-6) [facility] GLUCOSE (AUTOMATED)2022-10-08 15:06:32 Test Item Value Reference Range Interpretation Comments POCT GLU (test code = 2459497859) 162 mg/dL 70-110 H Lab Interpretation (test code = Abnormal 38183-0) [facility] GLUCOSE (AUTOMATED)2022-10-08 15:06:32 Test Item Value Reference Range Interpretation Comments POCT GLU (test code = 3494867271) 162 mg/dL 70-110 H Lab Interpretation (test code = Abnormal 59858-1) [facility] GLUCOSE (AUTOMATED)2022-10-08 03:55:19 Test Item Value Reference Range Interpretation Comments POCT GLU (test code = 1434839967) 279 mg/dL 70-110 H Lab Interpretation (test code = Abnormal 51170-3) [facility] GLUCOSE (AUTOMATED)2022-10-08 03:55:19 Test Item Value Reference Range Interpretation Comments POCT GLU (test code = 4008934299) 279 mg/dL 70-110 H Lab Interpretation (test code = Abnormal 32292-5) [facility] GLUCOSE (AUTOMATED)2022-10-08 03:11:05 Test Item Value Reference Range Interpretation Comments POCT GLU (test code = 8616976029) 322 mg/dL 70-110 H Lab Interpretation (test code = Abnormal 71076-9) [facility] GLUCOSE (AUTOMATED)2022-10-08 03:11:05 Test Item Value Reference Range Interpretation Comments POCT GLU (test code = 0577024543) 322 mg/dL 70-110 H Lab Interpretation (test code = Abnormal 62050-7) [facility]th[facility] Time / [id number] 17:14:10 Test Item Value Reference Range Interpretation [...] tions. Lab Interpretation (test Normal code = 93841-0) [facility] WITH [id number] 17:07:07 Test Item Value Reference Range Interpretation Comments WBC (test code = See_Comment [Automated 8790-2) message] The sy stem which generated this result transmitted reference range : 4.30 - 11.10 10*3/?L. The reference range was not used to interpret this result as normal/abnormal . RBC (test code = See_Comment [Automated 879-8) message] The sy stem which generated this [...] RDW-SD (test code = 47.4 fL 39.0-49.9 78614-7) RDW-CV (test code = 15.6 % 12.0-15.5 H 788-0) PLT (test code = See_Comment [Automated 777-3) message] The sy stem which generated this result transmitted reference range : 166 - 358 10*3/ ?L. The reference r fernando was not used to interpret this result as normal/abnormal . MPV (test code = 9.8 fL 9.5-12.9 70585-5) NRBC/100 WBC (test See_Comment [Automat ed code = 9876954196) message] The system which generated this result transmitted reference range : 0.0 - 10.0 /100 WBCs. The refer ence range was not u sed to interpret th is result as normal/abnormal . NRBC x10^3 (test code See_Comment [Auto mated = 1728482194) message] The s ystem which generated this result transmitted reference range : 10*3/?L. The reference range was not used to interpret this result as normal/abnormal . GRAN MAT (NEUT) % 54.5 % (test code = 770-8) IMM GRAN % (test code 0.40 % = 1509139150) LYMPH % (test code = 36.8 % 736-9) MONO % (test code = 7.0 % 5905-5) EOS % (test code = 1.1 % 713-8) BASO % (test code = 0.2 % 706-2) GRAN MAT x10^3(ANC) 2.96 10*3/uL 1.88-7.09 (test code = 4420454135) IMM GRAN x10^3 (test 0.00-0.06 code = 6186178344) LYMPH x10^3 (test code 2.00 10*3/uL 1.32-3.29 = 731-0) MONO x10^3 (test code 0.38 10*3/uL 0.33-0.92 = 742-7) EOS x10^3 (test code = 0.06 10*3/uL 0.03-0.39 711-2) BASO x10^3 (test code 0.01-0.07 = 704-7) Lab Interpretation Abnormal (test code = 41204-8) [facility]INES, [id number] 20:47:27 Test Item Value Reference Range Interpretation Comments METANEPH (test <0.10 0.00-0.49 code = 81581-2) NORMETNEPH (test 0.83 nmol/L 0.00-0.89 code = 81831-3) METAPF INT (test See Note INTERPRETIV E code = 49193-6) INFORMATION: Metanephrines, Plasma (Free) This nacho t [...] perform ance characteristics determined by A [facility]. I t has not been cleared or approved by the [place] Food and Drug Administration. This test was perfor med in a CLIA certified laboratory and is intended for cl inical purposes.Perfor med By: LUCINDA Seoi es[address] [place] [address] [id number] aboratory Director: Juan Espinosa MD, PhD [facility]2022-06-25 17:12:53 Test Item Value Reference Range Interpretation Comments POCT GLU (test code = 9858407633) 200 mg/dL 70-110 H Lab Interpretation (test code = Abnormal 41670-8) [facility]2022-06-25 17:12:53 Test Item Value Reference Range Interpretation Comments POCT GLU (test code = 2121341360) 200 mg/dL 70-110 H Lab Interpretation (test code = Abnormal 06944-9) [facility]2022-06-25 14:20:12 Test Item Value Reference Range Interpretation Comments POCT GLU (test code = 3777971467) 171 mg/dL 70-110 H Lab Interpretation (test code = Abnormal 58989-4) [facility]2022-06-25 14:20:12 Test Item Value Reference Range Interpretation Comments POCT GLU (test code = 9032978917) 171 mg/dL 70-110 H Lab Interpretation (test code = Abnormal 96423-7) [facility] GLUCOSE (AUTOMATED)2022-06-25 01:30:55 Test Item Value Reference Range Interpretation Comments POCT GLU (test code = 3012900007) 207 mg/dL 70-110 H Lab Interpretation (test code = Abnormal 33539-1) [facility]2022-06-25 01:30:55 Test Item Value Reference Range Interpretation Comments POCT GLU (test code = 8907059960) 207 mg/dL 70-110 H Lab Interpretation (test code = Abnormal 61960-3) [facility] GLUCOSE (AUTOMATED)2022-06-24 22:26:40 Test Item Value Reference Range Interpretation Comments POCT GLU (test code = 4244646304) 195 mg/dL 70-110 H Lab Interpretation (test code = Abnormal 40775-3) [facility] GLUCOSE (AUTOMATED)2022-06-24 22:26:40 Test Item Value Reference Range Interpretation Comments POCT GLU (test code = 1977757185) 195 mg/dL 70-110 H Lab Interpretation (test code = Abnormal 66854-8) [facility]2022-06-24 18:07:03 Test Item Value Reference Range Interpretation Comments POCT GLU (test code = 8157238851) 376 mg/dL 70-110 H Lab Interpretation (test code = Abnormal 44704-8) [facility] GLUCOSE (AUTOMATED)2022-06-24 18:07:03 Test Item Value Reference Range Interpretation Comments POCT GLU (test code = 2211071180) 376 mg/dL 70-110 H Lab Interpretation (test code = Abnormal 13223-0) [facility]-14 17:45:35 Test Item Value Reference Range Interpretation Comments MAGNESIUM (test code = 1240325067) 1.9 mg/dL 1.7-2.4 Lab Interpretation (test code = Normal 70651-3) [facility] (NA, K, CL, CO2, GLUCOSE, BUN, CREATININE, CA)2022-06-24 17:45:35 Test Item Value Reference Range Interpretation Comments NA (test code = 137 mmol/L 135-145 7674456049) K (test code = 3.3 mmol/L 3.5-5 L 2716641827) CL (test code = 101 mmol/L 98-108 5732068137) CO2 TOTAL (test code = 25 mmol/L 23-31 6914117891) AGAP (test code = 2-16 4538756098) BUN (test code = 17 mg/dL 7-23 2817680653) GLUCOSE (test code = 264 mg/dL 70-110 H 5328211125) CREATININE (test code = 0.94 mg/dL 0.5-1.04 1599676290) CALCIUM (test code = 9.1 mg/dL 8.6-10.6 5071998134) eGFR (test code = mL/min/1.73m2 0990503097) WINDY (test code = WINDY) Association of [...] tests). Lab Interpretation Abnormal (test code = 21527-8) [facility]20[facility]14 17:45:35 Test Item Value Reference Range Interpretation Comments MAGNESIUM (test code = 4622174967) 1.9 mg/dL 1.7-2.4 Lab Interpretation (test code = Normal 61860-0) [facility] (NA, K, CL, CO2, GLUCOSE, BUN, CREATININE, CA)2022-06-24 17:45:35 Test Item Value Reference Range Interpretation Comments NA (test code = 137 mmol/L 135-145 3631068039) K (test code = 3.3 mmol/L 3.5-5 L 1803208686) CL (test code = 101 mmol/L 98-108 7429358023) CO2 TOTAL (test code = 25 mmol/L 23-31 6278681348) AGAP (test code = 2-16 9247041214) BUN (test code = 17 mg/dL 7-23 4423689744) GLUCOSE (test code = 264 mg/dL 70-110 H 1042610978) CREATININE (test code = 0.94 mg/dL 0.5-1.04 7552826013) CALCIUM (test code = 9.1 mg/dL 8.6-10.6 4475871801) eGFR (test code = mL/min/1.73m2 2141821399) WINDY (test code = WINDY) Association of [...] tests). Lab Interpretation Abnormal (test code = 88527-8) [facility] WITHOUT [id number] 17:37:52 Test Item Value Reference Range Interpretation Comments WBC (test code = 6690-2) See_Comment [A utomated message] The system [employer] generated this result transmit timur reference range : 4.30 - 11.10 10*3/?L. The reference range was not used to interpret this result as normal/abnormal . RBC (test code = 789-8) See_Comment [Au tomated message] The system [employer] generated this result transmit timur reference range [...] 777-3) See_Comment [Au tomated message] The system [facility] generated this result transmit timur reference range : 166 - 358 10*3/?L. The reference range was not used to interpret this result as normal/abnormal . MPV (test code = 9.0 fL 9.5-12.9 L 33374-3) RDW-CV (test code = 16.6 % 12-15.5 H 788-0) RDW-SD (test code = 44.0 fL 39-49.9 20802-0) NRBC x10^3 (test code = See_Comment [Au tomated message] 9698191153) The system [facility] generated this result transmit timur reference range : 10*3/?L. The reference range was not used to interpret this result as normal/abnormal . NRBC/100 WBC (test code See_Comment [Au tomated message] = 3859387278) The system [facility] generated this result transmit timur reference range : 0.0 - 10.0 /100 WBC s. The reference r fernando was not used to interpret this result as normal/abnormal . IPF % (test code = 7809042071) Lab Interpretation (test Abnormal code = 70366-3) [facility] WITHOUT [id number] 17:37:52 Test Item Value Reference Range Interpretation Comments WBC (test code = 6690-2) See_Comment [A utomated message] The system [facility] generated this result transmit timur reference range : 4.30 - 11.10 10*3/?L. The reference range was not used to interpret this result as normal/abnormal . RBC (test code = 789-8) See_Comment [Au tomated message] The system [facility] generated this result transmit timur reference [...] 777-3) See_Comment [Au tomated message] The system [employer] generated this result transmit timur reference range : 166 - 358 10*3/?L. The reference range was not used to interpret this result as normal/abnormal . MPV (test code = 9.0 fL 9.5-12.9 L 43143-0) RDW-CV (test code = 16.6 % 12-15.5 H 788-0) RDW-SD (test code = 44.0 fL 39-49.9 28502-8) NRBC x10^3 (test code = See_Comment [Au tomated message] 3443852116) The system [employer] generated this result transmit timur reference range : 10*3/?L. The reference range was not used to interpret this result as normal/abnormal . NRBC/100 WBC (test code See_Comment [Au tomated message] = 7743247349) The system [employer] generated this result transmit timur reference range : 0.0 - 10.0 /100 WBC s. The reference r fernando was not used to interpret this result as normal/abnormal . IPF % (test code = 4262903464) Lab Interpretation (test Abnormal code = 54831-9) [facility] GLUCOSE (AUTOMATED)2022-06-24 13:05:03 Test Item Value Reference Range Interpretation Comments POCT GLU (test code = 0602289301) 175 mg/dL 70-110 H Lab Interpretation (test code = Abnormal 84807-1) [facility] GLUCOSE (AUTOMATED)2022-06-24 13:05:03 Test Item Value Reference Range Interpretation Comments POCT GLU (test code = 0861667081) 175 mg/dL 70-110 H Lab Interpretation (test code = Abnormal 58167-9) [facility] GLUCOSE (AUTOMATED)2022-06-24 03:59:23 Test Item Value Reference Range Interpretation Comments POCT GLU (test code = 3889898484) 200 mg/dL 70-110 H Lab Interpretation (test code = Abnormal 68678-7) [facility]24 03:59:23 Test Item Value Reference Range Interpretation Comments POCT GLU (test code = 2951779694) 200 mg/dL 70-110 H Lab Interpretation (test code = Abnormal 40474-6) [facility]2022-06-23 22:39:44 Test Item Value Reference Range Interpretation Comments POCT GLU (test code = 5463331525) 210 mg/dL 70-110 H Lab Interpretation (test code = Abnormal 12101-1) [facility] GLUCOSE (AUTOMATED)2022-06-23 22:39:44 Test Item Value Reference Range Interpretation Comments POCT GLU (test code = 1599145919) 210 mg/dL 70-110 H Lab Interpretation (test code = Abnormal 35835-0) [facility]2022-[facility]-23 17:10:04 Test Item Value Reference Range Interpretation Comments POCT GLU (test code = 2543304669) 189 mg/dL 70-110 H Lab Interpretation (test code = Abnormal 70739-2) [facility]22-[facility]-23 17:10:04 Test Item Value Reference Range Interpretation Comments POCT GLU (test code = 4489033061) 189 mg/dL 70-110 H Lab Interpretation (test code = Abnormal 13086-6) [facility]2022-[facility]-23 12:33:02 Test Item Value Reference Range Interpretation Comments POCT GLU (test code = 5353398563) 193 mg/dL 70-110 H Lab Interpretation (test code = Abnormal 82818-3) [facility]22-[facility]-23 12:33:02 Test Item Value Reference Range Interpretation Comments POCT GLU (test code = 3634989997) 193 mg/dL 70-110 H Lab Interpretation (test code = Abnormal 18327-9) [facility] 02:42:00 Test Item Value Reference Range Interpretation Comments POCT GLU (test code = 0364134179) 166 mg/dL 70-110 H Lab Interpretation (test code = Abnormal 86726-1) [facility]23 02:42:00 Test Item Value Reference Range Interpretation Comments POCT GLU (test code = 6543752514) 166 mg/dL 70-110 H Lab Interpretation (test code = Abnormal 19981-6) [facility] [id number] 23:14:43 Test Item Value Reference Range Interpretation Comments PHOSPHORUS (test code = 3.1 mg/dL 2.5-5 Slig ht hemolysis 7992300271) Lab Interpretation (test Normal code = 23020-3) [facility] [id number] 23:14:43 Test Item Value Reference Range Interpretation Comments PHOSPHORUS (test code = 3.1 mg/dL 2.5-5 Slig ht hemolysis 9882635028) Lab Interpretation (test Normal code = 68984-3) [facility] GLUCOSE (AUTOMATED)2022-06-22 22:01:14 Test Item Value Reference Range Interpretation Comments POCT GLU (test code = 5017762249) 216 mg/dL 70-110 H Lab Interpretation (test code = Abnormal 66329-3) [facility]:14 Test Item Value Reference Range Interpretation Comments POCT GLU (test code = 9176869136) 216 mg/dL 70-110 H Lab Interpretation (test code = Abnormal 23721-1) [facility] GLUCOSE (AUTOMATED)2022-06-22 16:56:03 Test Item Value Reference Range Interpretation Comments POCT GLU (test code = 1285825677) 170 mg/dL 70-110 H Lab Interpretation (test code = Abnormal 01667-6) [facility] 16:56:03 Test Item Value Reference Range Interpretation Comments POCT GLU (test code = 5242609698) 170 mg/dL 70-110 H Lab Interpretation (test code = Abnormal 70563-5) [facility] GLUCOSE (AUTOMATED)2022-06-22 13:15:17 Test Item Value Reference Range Interpretation Comments POCT GLU (test code = 8603725591) 186 mg/dL 70-110 H Lab Interpretation (test code = Abnormal 78413-8) [facility] GLUCOSE (AUTOMATED)2022-06-22 13:15:17 Test Item Value Reference Range Interpretation Comments POCT GLU (test code = 0050368126) 186 mg/dL 70-110 H Lab Interpretation (test code = Abnormal 45769-9) [facility] GLUCOSE (AUTOMATED)2022-06-22 00:55:28 Test Item Value Reference Range Interpretation Comments POCT GLU (test code = 6887824022) 201 mg/dL 70-110 H Lab Interpretation (test code = Abnormal 26399-4) [facility] GLUCOSE (AUTOMATED)2022-06-22 00:55:28 Test Item Value Reference Range Interpretation Comments POCT GLU (test code = 5927122058) 201 mg/dL 70-110 H Lab Interpretation (test code = Abnormal 42697-3) [facility] 22:48:56 Test Item Value Reference Range Interpretation Comments Height (test code = in 7374875413) Weight (test code = lbs 7836362121) Systolic BP (test code = mmHg 6051017542) Diastolic BP (test code mmHg = 0330735661) Heart Rate (test code = bpm 8284901162) LVOT stroke volume (test 79.70 cm3 code = 0537654849) EF(Teich) (test code = 56.30 % 0414146190) LVIDD (test code = 4.60 cm 7275206205) LVIDS (test code = 3.30 cm 9387872821) Left Ventricular End 43.5 mL Systolic Volume by Teichholz Method (test code = 0096187) Left Ventricular End 99.6 mL Diastolic Volume by Teichholz Method (test code = 2309319) IVS (test code = 1.19 cm 4325405609) LVPWD (test code = 1.08 cm 4929627249) LVOT diameter (test code 2.05 cm = 9695968715) LVOT area (test code = 3.30 cm2 3685276888) FS (test code = 29 % 1989965942) MV Peak E Tian (test code 84.6 cm/s = 8777415982) MV Peak A Tian (test code 110.3 cm/s = 7839623838) E/A ratio (test code = ratio 0560043078) E wave decelartion time 0.25 s (test code = 4531432435) MV E/e' septal (test 4.0 cm/s code = 3376033665) LA Volume Index (BP) 36.7 mL/m2 (test code = 1211563760) LA volume (BP) (test 65.4 mL code = 6854224881) LVOT peak tian (test code 100.1 cm/s = 9385907831) LVOT mn grad (test code mmHg = 5898638357) BSA (test code = 1.78 m2 0715209761) LA size (test code = 3.4 cm 7241885704) LAV(MOD-sp2) (test code 61.30 mL = 6153789179) LAV(MOD-sp4) (test code 58.90 mL = 7624940543) Tapse (test code = 2.48 cm 2347006990) AV LVOT peak gradient mmHg (test code = 0327224547) LVOT peak VTI (test code 24.2 cm = 8085667947) LV V1 mean (test code = 64.80 cm/s 1507277362) MV Prop V (test code = 31.70 cm/s 8157235099) Ao root diam (test code 3.40 cm = 6045045313) Aortic root (test code = 3.4 cm 5979307711) Ao root annulus (test 3.4 cm code = 9622916611) PW (test code = 1.08 cm 0.6-1.5 2876542202) EF - 2D (test code = 56.30 % 68323240) Interventricular Septum 1.19 cm Diastolic Thickness by 2D (test code = 9879358) Left Ventricular Cardiac 4.8 L/min Output (test code = 4408163) Aortic HR (test code = BPM 5818572442) Aortic valve mean 86.9 cm/s velocity (test code = 9741913690) Ao peak tian (test code = 153.7 cm/s 8905688132) Ao VTI (test code = 33.7 cm 0535713043) AV area by cont VTI 2.4 cm2 (test code = 8825339106) AV area peak tian (test 2.2 cm2 code = 2204390205) Ao max PG (test code = 9.40 mm[Hg] 8310117524) AV peak gradient (test mmHg code = 6969569702) AV valve area (test code 2.37 cm2 = 4012616632) AV mean gradient (test mmHg code = 0839043815) IVC Diam Exp(MM) (test 1.87 cm code = 1808804745) IVC Diam Ins(MM) (test 0.78 cm code = 6148421525) Radiology Study observation (narrative) (test code = 06673-9) WINDY (test code = WINDY) ?Left?Ventricle: Left [...] enhancing agent used. Patient exhibited [facility] bradycardia. [facility]:48:56 Test Item Value Reference Range Interpretation Comments Height (test code = in 8446946247) Weight (test code = lbs 3204685404) Systolic BP (test code = mmHg 4050738948) Diastolic BP (test code mmHg = 6968901541) Heart Rate (test code = bpm 3750981834) LVOT stroke volume (test 79.70 cm3 code = 7538537428) EF(Teich) (test code = 56.30 % 5916673554) LVIDD (test code = 4.60 cm 1513711662) LVIDS (test code = 3.30 cm 1115452622) Left Ventricular End 43.5 mL Systolic Volume by Teichholz Method (test code = 4412470) Left Ventricular End 99.6 mL Diastolic Volume by Teichholz Method (test code = 0405771) IVS (test code = 1.19 cm 8057801885) LVPWD (test code = 1.08 cm 5671896543) LVOT diameter (test code 2.05 cm = 1830633335) LVOT area (test code = 3.30 cm2 5086200772) FS (test code = 29 % 6733727343) MV Peak E Tian (test code 84.6 cm/s = 7366744690) MV Peak A Tian (test code 110.3 cm/s = 3883543550) E/A ratio (test code = ratio 3228610748) E wave decelartion time 0.25 s (test code = 7381486085) MV E/e' septal (test 4.0 cm/s code = 9640450056) LA Volume Index (BP) 36.7 mL/m2 (test code = 9837136424) LA volume (BP) (test 65.4 mL code = 9883312097) LVOT peak tian (test code 100.1 cm/s = 1061834372) LVOT mn grad (test code mmHg = 3441006399) BSA (test code = 1.78 m2 0399550753) LA size (test code = 3.4 cm 2749332359) LAV(MOD-sp2) (test code 61.30 mL = 5311541275) LAV(MOD-sp4) (test code 58.90 mL = 6164662167) Tapse (test code = 2.48 cm 0527861523) AV LVOT peak gradient mmHg (test code = 4619865889) LVOT peak VTI (test code 24.2 cm = 8682767538) LV V1 mean (test code = 64.80 cm/s 8676335295) MV Prop V (test code = 31.70 cm/s 0581818255) Ao root diam (test code 3.40 cm = 8139547412) Aortic root (test code = 3.4 cm 1569702538) Ao root annulus (test 3.4 cm code = 6033599317) PW (test code = 1.08 cm 0.6-1.9 5092802819) EF - 2D (test code = 56.30 % 56930914) Interventricular Septum 1.19 cm Diastolic Thickness by 2D (test code = 5978194) Left Ventricular Cardiac 4.8 L/min Output (test code = 5074642) Aortic HR (test code = BPM 0721328774) Aortic valve mean 86.9 cm/s velocity (test code = 4166758080) Ao peak tian (test code = 153.7 cm/s 4783568495) Ao VTI (test code = 33.7 cm 3225444337) AV area by cont VTI 2.4 cm2 (test code = 2107633934) AV area peak tian (test 2.2 cm2 code = 6764378138) Ao max PG (test code = 9.40 mm[Hg] 7564388977) AV peak gradient (test mmHg code = 9228319427) AV valve area (test code 2.37 cm2 = 8830740948) AV mean gradient (test mmHg code = 8161529607) IVC Diam Exp(MM) (test 1.87 cm code = 5700640815) IVC Diam Ins(MM) (test 0.78 cm code = 1474646649) Radiology Study observation (narrative) (test code = 14383-5) WINDY (test code = WINDY) ?Left?Ventricle: Left [...] Interpretation Comments POCT GLU (test code = 3671591805) 181 mg/dL 70-110 H Lab Interpretation (test code = Abnormal 58432-9) [facility] GLUCOSE (AUTOMATED)2022-06-21 21:50:29 Test Item Value Reference Range Interpretation Comments POCT GLU (test code = 4880141191) 181 mg/dL 70-110 H Lab Interpretation (test code = Abnormal 55218-6) [facility] GLUCOSE (AUTOMATED)2022-06-21 20:55:06 Test Item Value Reference Range Interpretation Comments POCT GLU (test code = 8798584875) 159 mg/dL 70-110 H Lab Interpretation (test code = Abnormal 48895-3) [facility] GLUCOSE (AUTOMATED)2022-06-21 20:55:06 Test Item Value Reference Range Interpretation Comments POCT GLU (test code = 7036233459) 159 mg/dL 70-110 H Lab Interpretation (test code = Abnormal 37998-3) [facility] [id number] 11:32:00 Test Item Value Reference Range Interpretation Comments POC-GLUCOSE METER 235 mg/dL 70-110 H : TESTED A T [facility] 6720 (BEAKER) (test code = [facility], 1538) 99893: Credit Investigator/Techni chika ID = [id number] for QUEEN LASSITER POCT-GLUCOSE [id number] 07:37:00 Test Item Value Reference Range Interpretation Comments POC-GLUCOSE METER 190 mg/dL 70-110 H : TESTED A T [facility] 6720 (BEAKER) (test code = [facility], 1538) 30090: Credit Investigator/Techni chika ID = [id number] for QUEEN LASSITER CBC W/PLT COUNT & AUTO [id number] 06:10:00 Test Item Value Reference Range Interpretation [...] PERCENT (BEAKER) (test code = 2801) POCT-GLUCOSE [id number] 22:16:00 Test Item Value Reference Range Interpretation Comments POC-GLUCOSE METER 275 mg/dL 70-110 H : TESTED A T [facility] 6720 (BEAKER) (test code = [facility], 153) 87597: Credit Investigator/Techni chika ID = [id number] for DI YRIS RODRÍGUEZ POCT-GLUCOSE [id number] 16:44:00 Test Item Value Reference Range Interpretation Comments POC-GLUCOSE METER 200 mg/dL 70-110 H : TESTED A T [facility] 6720 (BEAKER) (test code = [facility], 153) 63153: Credit Investigator/Techni chika ID = [id number] for LOYDA QUEEN SIBLEY POCT-GLUCOSE [id number] 12:11:00 Test Item Value Reference Range Interpretation Comments POC-GLUCOSE METER 180 mg/dL 70-110 H : TESTED A T [facility] 6720 (BEAKER) (test code = [facility], 153) 94109: Credit Investigator/Techni chika ID = [id number] for SHAYY ALBRIGHT POCT-GLUCOSE [id number] 08:17:00 Test Item Value Reference Range Interpretation Comments POC-GLUCOSE METER 158 mg/dL 70-110 H : TESTED A T [facility] 6720 (BEAKER) (test code = [place], 1538) 58551: Credit Investigator/Techni chika ID = [id number] for SHAYY ALBRIGHT CBC W/PLT COUNT & AUTO [id number] 04:14:00 Test Item Value Reference Range Interpretation [...] PERCENT (BEAKER) (test code = 2801) POCT-GLUCOSE [id number] 16:12:00 Test Item Value Reference Range Interpretation Comments POC-GLUCOSE METER 233 mg/dL 70-110 H : TESTED A T [facility] 6720 (BEAKER) (test code = [facility], 1538) 92703: Credit Investigator/Techni chika ID = [id number] for SHAYY ALBRIGHT POCT-GLUCOSE [id number] 12:02:00 Test Item Value Reference Range Interpretation Comments POC-GLUCOSE METER 190 mg/dL 70-110 H : TESTED A T [facility] 6720 (BEAKER) (test code = [facility], 1538) 21506: Credit Investigator/Techni chika ID = [id number] for SHAYY ALBRIGHT STOOL CULTURE + SHIGA [id number] 09:19:00 Test Item Value Reference Range Interpretation Comments CULTURE (AKER) No Salmonella, Shigella (test code = 1095) or Campylobacter isolated POCT-GLUCOSE [id number] 07:46:00 Test Item Value Reference Range Interpretation Comments POC-GLUCOSE METER 174 mg/dL 70-110 H : TESTED A T [facility] 6720 (BEAKER) (test code = [facility], 1538) 40088: Credit Investigator/Techni chika ID = [id number] for SHAYY ALBRIGHT CBC W/PLT COUNT & AUTO [id number] 06:53:00 Test Item Value Reference Range Interpretation [...] 0-1 PERCENT (BEAKER) (test code = 2801) [id number] 06:20:00 Test Item Value Reference Range Interpretation Comments MAGNESIUM (BEAKER) 1.7 mg/dL 1.6-2.6 Specimen slightly (test code = 627) hemolyzed Credit Investigator ID - LATA WBASIC METABOLIC [id number] 06:20:00 Test Item Value Reference Range Interpretation [...] S NOT APPLICABLE FOR DIALYSIS PATIEN TS. Credit Investigator ID - LATA WHEPATIC FUNCTION [id number] 06:20:00 Test Item Value Reference Range Interpretation [...] Specimen slightly (test code = 347) hemolyzed Credit Investigator ID - LATA WPOCT-GLUCOSE [id number] 21:46:00 Test Item Value Reference Range Interpretation Comments POC-GLUCOSE METER 181 mg/dL 70-110 H : TESTED A T [facility] 6720 (CALI) (test code = DINA Ortega [facility], 1538) 43834: Credit Investigator/Techni chika ID = [id number] for JEREMY GUPTA CT, BRAIN, WITHOUT [id number] 18:11:00FINAL REPORT CT, BRAIN, WITHOUT CONTRAST INDICATION: [...] Annmarie Burch Verified Date/Time: 03/26/2020 18:11:57 POCT-GLUCOSE [id number] 17:31:00 Test Item Value Reference Range Interpretation Comments POC-GLUCOSE METER 209 mg/dL 70-110 H : Notified RN/MD: (CALI) (test code = TESTED AT [facility] 6720 1538) [facility] [address]: Credit Investigator/Techni chika ID = [id number] for MEERA LEMOS SHIGA TOXIN [id number] 15:19:00 Test Item Value Reference Range Interpretation Comments SHIGA TOXIN 1 (BEAKER) (test Not detected Not detected code = 2177) SHIGA TOXIN 2 (BEAKER) (test Not detected Not detected code = 2179) POCT-GLUCOSE [id number] 11:53:00 Test Item Value Reference Range Interpretation Comments POC-GLUCOSE METER 159 mg/dL 70-110 H : TESTED A T [facility] 6720 (BEAKER) (test code = [facility], 1538) 31690: Credit Investigator/Techni chika ID = [id number] for SANDRA HOLLIS STOOL PATH [id number] 11:36:00 Test Item Value Reference Range Interpretation Comments PATHOGEN EXAM CHARGED (BEAKER) (test Done code = 2381) POCT-GLUCOSE [id number] 07:11:00 Test Item Value Reference Range Interpretation Comments POC-GLUCOSE METER 146 mg/dL 70-110 H : TESTED A T [facility] 6720 (BEAKER) (test code = [facility], 1538) 93149: Credit Investigator/Techni chika ID = [id number] for MILY GROVE [id number] 06:04:00 Test Item Value Reference Range Interpretation Comments MAGNESIUM (BEAKER) (test code = 1.9 mg/dL 1.6-2.6 627) Credit Investigator ID - PIAYA LBASIC METABOLIC [id number] 06:04:00 Test Item Value Reference Range Interpretation [...] S NOT APPLICABLE FOR DIALYSIS PATIEN TS. Credit Investigator ID - PIAYA LHEPATIC FUNCTION [id number] 06:04:00 Test Item Value Reference Range Interpretation [...] (test code = 15 U/L 6-55 347) Credit Investigator ID - PIAYA LCBC W/PLT COUNT & AUTO [id number] 05:20:00 Test Item Value Reference Range Interpretation [...] PERCENT (BEAKER) (test code = 2801) POCT-GLUCOSE [id number] 21:12:00 Test Item Value Reference Range Interpretation Comments POC-GLUCOSE METER 154 mg/dL 70-110 H : TESTED A T [facility] 6720 (BEAKER) (test code = [facility], 153) 77893: Credit Investigator/Techni chika ID = [id number] for ALPHONSO GUPTAU POCT-GLUCOSE [id number] 17:43:00 Test Item Value Reference Range Interpretation Comments POC-GLUCOSE METER 152 mg/dL 70-110 H : TESTED A T [facility] 6720 (BEAKER) (test code = [facility], 153) 90067: Credit Investigator/Techni chika ID = [id number] for LOYDA NATHANJAJA PANCHO SARS-COV2/RT-PCR ([facility])2020-03-25 13:40:00 Test Item Value Reference Range Interpretation Comments SARS-COV2/RT-PCR (test code = Negative Not Detected, Negative 0896161) SARS-COV-2 PERFORMING LAB [facility] (test code = 2021147) Negative result for this test determines that [...] of the Act.Fact Sheet for Healthcare Prov iders:https://www.[employer]/sites/default/files/product/documents/Fact_Sheet_HC _Twpfpcdiv_Gvfz_SRWL-SlC-2.pdfFact Sheet for Healthcare Patients:https://www.[employer]/sites/default/files/product/docume nts/Gtuz_Thvyo_Mhjjojyv_Bzzv_QNJI-VvS-3.pdfPerforming Laboratory:[facility] [place], [place] [address]XSBI-RPNVOKT METER 2020-03-25 11:24:00 Test Item Value Reference Range Interpretation Comments POC-GLUCOSE METER 165 mg/dL 70-110 H : TESTED A T [facility] 6720 (BEAKER) (test code = [place], 1538) [address]: Credit Investigator/Techni chika ID = [id number] for SANDRA HOLLIS TSH/FREE T4 IF [id number] 10:59:00 Test Item Value Reference Range Interpretation Comments THYROID STIMULATING HORMONE 0.622 uIU/mL 0.350-4.940 (BEAKER) (test code = 772) Credit Investigator ID - WAGNER LHEMOGLOBIN [id number] 10:59:00 Test Item Value Reference Range Interpretation Comments HEMOGLOBIN A1C (BEAKER) (test code = 6.9 % 4.3-6.1 H 368) TROPONIN [id number] 10:50:00 Test Item Value Reference Range Interpretation [...] failure, acidosis, acute neurological disease, and persistent tachyarrhythmia.Credit Investigator ID - WAGNER LBASIC METABOLIC [id number] 10:42:00 Test Item Value Reference Range Interpretation [...] S NOT APPLICABLE FOR DIALYSIS PATIEN TS. Credit Investigator ID - WAGNER LHEPATIC FUNCTION [id number] 10:42:00 Test Item Value Reference Range Interpretation [...] (test code = 10 U/L 6-55 347) Credit Investigator ID - WAGNER [id number] 10:41:00 Test Item Value Reference Range Interpretation Comments PHOSPHORUS (BEAKER) (test code = 3.2 mg/dL 2.3-4.7 604) Credit Investigator ID - WAGNER [id number] 10:41:00 Test Item Value Reference Range Interpretation Comments MAGNESIUM (BEAKER) (test code = 2.0 mg/dL 1.6-2.6 627) Credit Investigator ID - WAGNER LPOCT-GLUCOSE [id number] 09:10:00 Test Item Value Reference Range Interpretation Comments POC-GLUCOSE METER 116 mg/dL 70-110 H : TESTED A T [facility] 6720 (BEAKER) (test code = [place], 1538) [address]: Credit Investigator/Techni chika ID = [id number] for HENRRY TRACEY RAD, CHEST, 1 VIEW, NON [id number] 07:49:00Reason for exam:->chest painShould this be performed at the bedside?->YesFINAL REPORT CLINICAL HISTORY: chest pain TECHNIQUE: 1 view of the chest. COMPAR NIEVES: None IMPRESSION: There are linear bandlike opacities in the bilateral mid and lower lungs. There are no significant effusions. The cardiomediastinal silhouette is magnified by technique. Signed: Keturah Gillespie MDReport Verified Date/Time: 03/25/2020 07:49:59 Reading Location: [facility] Radiology Reading Room C. DIFFICILE GDH [id number] 06:54:00 Test Item Value Reference Range Interpretation Comments CDT TOXIN (test code Negative Negative = 6572558943) CDT GDH ANTIGEN (test Negative Negative No ind ication of code = 7989891957) Clostridi um difficile infection and n o colonization. Discontinue ent perez isolation and t herapy. Testing performed by [employer] Rapid Cassette Assay. For GDH, published sensitivity of the assay is 98.7% compared to cytotoxicity testing. For Toxin AB, published sensitivity is 87.8% and specificity 99.4% compared to cytotoxicity testing.Verification of kit performance was done by the [facility] prior to clinical use.URINALYSIS WITH MICROSCOPIC IF [id number] 06:35:00 Test Item Value Reference Range Interpretation [...] = 463) SOURCE(BEAKER) (test code = 2795) Credit Investigator ID - [auto]Credit Investigator ID - techURINALYSIS [id number] 06:35:00 Test Item Value Reference Range Interpretation Comments RBC UA (BEAKER) (test code = 519) 3 /HPF WBC UA (BEAKER) (test code = 520) 11 /HPF BACTERIA (BEAKER) (test code = 517) Rare SQUAMOUS EPITHELIAL (BEAKER) (test 1 /HPF code = 516) Credit Investigator ID - techPOCT-GLUCOSE [id number] 05:08:00 Test Item Value Reference Range Interpretation Comments POC-GLUCOSE METER 128 mg/dL 70-110 H : TESTED A T [facility] 6720 (BEAKER) (test code = [place] 1538) [address]: Credit Investigator/Techni chika ID = [id number] for As Meena beckett CHEM [id number] 12:00:00 Test Item Value Reference Range Interpretation Comments eGFR (test code = eGFR) 86 [facility] OY LX Therapies [id number] 12:00:00 Test Item Value Reference Range Interpretation Comments AGAP (test code = AGAP) 9.5 10.0-20.0 [facility] O[facility] LX Therapies [id number] 12:00:00 Test Item Value Reference Range Interpretation Comments CO2 (test code = CO2) 33 24-32 [facility] LX Therap[facility] [id number] 12:00:00 Test Item Value Reference Range Interpretation Comments Calcium Lvl (test code = Calcium Lvl) 8.7 8.5-10.5 [facility] LX Therap[facility] [id number] 12:00:00 Test Item Value Reference Range Interpretation Comments Glucose Lvl (test code = Glucose Lvl) 201 70-99 [facility] [id number] 12:00:00 Test Item Value Reference Range Interpretation Comments BUN (test code = BUN) 19 7-22 [facility] L[facility] Therap[facility] [id number] 12:00:00 Test Item Value Reference Range Interpretation Comments Creatinine Lvl (test code = Creatinine 0.61 0.50-1.40 Lvl) [facility] LX Therapies [id number] 12:00:00 Test Item Value Reference Range Interpretation Comments Sodium Lvl (test code = Sodium Lvl) 127 135-145 [facility] OY LX Therapies [id number] 12:00:00 Test Item Value Reference Range Interpretation Comments Chloride Lvl (test code = Chloride Lvl) 89 95-109 [facility]2018-06-19 12:00:00 Test Item Value Reference Range Interpretation Comments Potassium Lvl (test code = Potassium 4.5 3.5-5.1 Lvl) [facility]2018-06-18 [...] AGAP (test code = AGAP) 13.3 10.0-20.0 [facility] HospitalAwrdrigGBISGCRXNI1656-08-24 08:31:00 Test Item Value Reference Range Interpretation Comments Hgb (test code = Hgb) 9.4 12.0-16.0 [facility] HospitalK[id number] 08:31:00 Test Item Value Reference Range Interpretation Comments RBC (test code = RBC) 3.38 4.20-5.40 [facility] Hos[id number] 08:31:00 Test Item Value Reference Range Interpretation Comments WBC (test code = WBC) 8.8 3.7-10.4 [facility] HospitalQawvtdhHDRHPANLWZ9229-23-09 08:31:00 Test Item Value Reference Range Interpretation Comments Hct (test code = Hct) 27.7 36.0-48.0 [facility] HospitalMnupoajDMISSKOLWZ2222-57-69 08:31:00 Test Item Value Reference Range Interpretation Comments MPV (test code = MPV) 8.5 7.4-10.4 [facility] HospitalJvqaoupDZOCUJOIKK2274-02-41 08:31:00 Test Item Value Reference Range Interpretation Comments Platelet (test code = Platelet) 213 133-450 [facility] HospitalCxnqqwoNRYXAECKNQ9496-82-06 08:31:00 Test Item Value Reference Range Interpretation Comments RDW (test code = RDW) 15.1 11.5-14.5 [facility] HospitalNvsfrqkZPMHPNOFFM8487-37-02 08:31:00 Test Item Value Reference Range Interpretation Comments MCHC (test code = MCHC) 34.0 32.0-36.0 [facility] HospitalOsadglvGXETAJRQWS5479-09-83 08:31:00 Test Item Value Reference Range Interpretation Comments MCH (test code = MCH) 27.8 pg 27.0-31.0 [facility] HospitalHmwsfkxQGBSXTDLHD0989-71-30 08:31:00 Test Item Value Reference Range Interpretation Comments MCV (test code = MCV) 81.8 80.0-98.0 [facility] HospitalBduzfgwBXOUJADSIM3568-67-69 08:31:00 Test Item Value Reference Range Interpretation Comments Lymphocytes (test code = Lymphocytes) 11.3 20.0-40.0 [facility] HospitalBehwdzgRYLCXXACZD7403-56-28 08:31:00 Test Item Value Reference Range Interpretation Comments Segs (test code = Segs) 81.3 45.0-75.0 [facility] HospitalRlxdqsjBQWSSKHPDG3984-77-28 08:31:00 Test Item Value Reference Range Interpretation Comments Basophils (test code = 0.3 See_Comment [Aut omated message] The Basophils) system which ge nerated this result tra nsmitted reference range : <=1.0. The reference r fernando was not used to int erpret this result as normal/abnormal . [id number] 08:31:00 Test Item Value Reference Range Interpretation Comments Eosinophils (test code = 2.2 See_Comment [A utomated message] The Eosinophils) system which ge nerated this result tra nsmitted reference range : <=4.0. The reference r fernando was not used to int erpret this result as normal/abnormal . [facility] Hos[id number] 08:31:00 Test Item Value Reference Range Interpretation Comments Monocytes (test code = Monocytes) 4.9 2.0-12.0 [facility] HospitalZdyviljMVDCIKIWBZ9070-24-08 08:31:00 Test Item Value Reference Range Interpretation Comments Lymphocytes # (test code = Lymphocytes 1.0 1.0-5.5 #) [facility] HospitalBbgrhjkAWLKWDBMMD7874-74-28 08:31:00 Test Item Value Reference Range Interpretation Comments Segs-Bands # (test code = Segs-Bands #) 7.2 1.5-8.1 [facility] HospitalPnuhdjsKQYBFXEBDB3702-23-98 08:31:00 Test Item Value Reference Range Interpretation Comments Eosinophils # (test code 0.2 See_Comment [A utomated message] The = Eosinophils #) system whic h generated this result tra nsmitted reference range : <=0.5. The reference r fernando was not used to int erpret this result as normal/abnormal . [facility] HospitalBnashwkXTUHWWOOUD2564-26-30 08:31:00 Test Item Value Reference Range Interpretation Comments Monocytes # (test code 0.4 See_Comment [Aut omated message] The = Monocytes #) system which generated this result tra nsmitted reference range : <=0.8. The reference r fernando was not used to int erpret this result as normal/abnormal . [facility] CenterLun[facility]ames [id number] 06:00:00 Test Item Value Reference Range Interpretation Comments Calcium Lvl (test code = Calcium Lvl) 8.8 8.5-10.5 [facility] Center[facility] [id number] 06:00:00 Test Item Value Reference Range Interpretation Comments Chloride Lvl (test code = Chloride Lvl) 84 95-109 [facility] Center[facility] [id number] 06:00:00 Test Item Value Reference Range Interpretation Comments AGAP (test code = AGAP) 12.4 10.0-20.0 [facility] [id number] 06:00:00 Test Item Value Reference Range Interpretation Comments CO2 (test code = CO2) 37 24-32 [facility] [id number] 06:00:00 Test Item Value Reference Range Interpretation Comments eGFR (test code = eGFR) 88 [facility] [id number] 06:00:00 Test Item Value Reference Range Interpretation Comments Glucose Lvl (test code = Glucose Lvl) 146 70-99 [facility] [id number] 06:00:00 Test Item Value Reference Range Interpretation Comments BUN (test code = BUN) 13 7-22 [facility]2018-06-17 06:00:00 Test Item Value Reference Range Interpretation Comments Creatinine Lvl (test code = Creatinine 0.57 0.50-1.40 Lvl) [facility]2018-06-17 06:00:00 Test Item Value Reference Range Interpretation Comments Sodium Lvl (test code = Sodium Lvl) 130 135-145 [facility] [id number] 06:00:00 Test Item Value Reference Range Interpretation Comments Potassium Lvl (test code = Potassium 3.4 3.5-5.1 Lvl) [facility] [id number] 06:00:00 Test Item Value Reference Range Interpretation Comments Magnesium Lvl (test code = Magnesium 2.0 1.8-2.4 Lvl) [facility] CenterCARDIAC [id number] 06:00:00 Test Item Value Reference Range Interpretation Comments BNP (test code = BNP) 188 [facility] [id number] 06:00:00 Test Item Value Reference Range Interpretation Comments Phosphorus (test code = Phosphorus) 2.7 2.5-4.5 [facility] CenterUR[facility] [id number] 15:56:00 Test Item Value Reference Range Interpretation Comments U Osmolality (test code = U Osmolality) 311 300-800 [facility]UR[facility] [id number] 15:56:00 Test Item Value Reference Range Interpretation Comments U Creatinine (test code = U Creatinine) 10.70 [facility] [id number] 15:56:00 Test Item Value Reference Range Interpretation Comments U Sodium (test code = U Sodium) 84 [facility]2018-06-16 15:56:00 Test Item Value Reference Range Interpretation Comments U Potassium (test code = U Potassium) 42.2 [facility]2018-06-16 15:56:00 Test Item Value Reference Range [...] Phosphorus (test code = Phosphorus) 2.3 2.5-4.5 [facility] HospitalWxumqwyZLJJBNASUK2659-03-48 05:11:00 Test Item Value Reference Range Interpretation Comments Segs-Bands # (test code = Segs-Bands #) 6.2 1.5-8.1 [facility] HospitalYtaxbdzUEOVLGROXR8390-03-01 05:11:00 Test Item Value Reference Range Interpretation Comments Lymphocytes # (test code = Lymphocytes 1.1 1.0-5.5 #) [facility] HospitalBogqbkrOKULUQTJGI2523-01-99 05:11:00 Test Item Value Reference Range Interpretation Comments Basophils (test code = 0.2 See_Comment [Aut omated message] The Basophils) system which ge nerated this result tra nsmitted reference range : <=1.0. The reference r fernando was not used to int erpret this result as normal/abnormal . [facility] HospitalAyncfrvLEGYMJASBQ1957-79-61 05:11:00 Test Item Value Reference Range Interpretation Comments Eosinophils (test code = 2.3 See_Comment [A utomated message] The Eosinophils) system which ge nerated this result tra nsmitted reference range : <=4.0. The reference r fernando was not used to int erpret this result as normal/abnormal . [facility] HospitalZyenmyhDSHPCECRSP6502-82-39 05:11:00 Test Item Value Reference Range Interpretation Comments Monocytes (test code = Monocytes) 8.1 2.0-12.0 [facility] HospitalUeikarsZKTWHZVABL5908-61-38 05:11:00 Test Item Value Reference Range Interpretation Comments Lymphocytes (test code = Lymphocytes) 13.8 20.0-40.0 [facility] HospitalKkwbzfsXRSBOMLNGS7087-20-52 05:11:00 Test Item Value Reference Range Interpretation Comments Segs (test code = Segs) 75.6 45.0-75.0 [facility] HospitalFlyrvnoFLMMHVEDEJ4599-42-30 05:11:00 Test Item Value Reference Range Interpretation Comments Eosinophils # (test code 0.2 See_Comment [A utomated message] The = Eosinophils #) system whic h generated this result tra nsmitted reference range : <=0.5. The reference r fernando was not used to int erpret this result as normal/abnormal . [facility] HospitalNdxfwljUXHVRJYFNY9084-03-37 05:11:00 Test Item Value Reference Range Interpretation Comments Monocytes # (test code 0.7 See_Comment [Aut omated message] The = Monocytes #) system which generated this result tra nsmitted reference range : <=0.8. The reference r fernando was not used to int erpret this result as normal/abnormal . [facility] HospitalYodhspiWZWUYPYGTM4534-17-03 05:11:00 Test Item Value Reference Range Interpretation Comments Platelet (test code = Platelet) 185 133-450 [facility] HospitalSgjecttKGJOFWBJYT2359-20-55 05:11:00 Test Item Value Reference Range Interpretation Comments RDW (test code = RDW) 15.0 11.5-14.5 [facility] Hospit[id number] 05:11:00 Test Item Value Reference Range Interpretation Comments MCHC (test code = MCHC) 34.1 32.0-36.0 [facility] HospitalFdpyqtfGEEQOFPZPO2132-77-49 05:11:00 Test Item Value Reference Range Interpretation Comments MPV (test code = MPV) 8.2 7.4-10.4 [facility] HospitalGdpyxhmBCPRLHPIXV4058-50-86 05:11:00 Test Item Value Reference Range Interpretation Comments MCV (test code = MCV) 81.1 80.0-98.0 [facility] HospitalVonmpsrYHXYTLWSQW4035-71-65 05:11:00 Test Item Value Reference Range Interpretation Comments MCH (test code = MCH) 27.7 pg 27.0-31.0 [facility] HospitalZlniwaxNRKPXFGUHU3421-55-12 05:11:00 Test Item Value Reference Range Interpretation Comments RBC (test code = RBC) 3.46 4.20-5.40 [facility] HospitalIzspnsuUPOPNQNOWP4007-26-10 05:11:00 Test Item Value Reference Range Interpretation Comments Hct (test code = Hct) 28.1 36.0-48.0 [facility] HospitalZwetrsyROFOEEJTQE8372-25-26 05:11:00 Test Item Value Reference Range Interpretation Comments Hgb (test code = Hgb) 9.6 12.0-16.0 [facility] HospitalDarewqyAGLGWQJFKN0640-86-31 05:11:00 Test Item Value Reference Range Interpretation Comments WBC (test code = WBC) 8.2 3.7-10.4 [facility]2018-06-16 05:11:00 Test Item Value Reference Range Interpretation Comments Ca Ion WB (test code = Ca Ion WB) 1.05 1.05-1.25 [facility]2018-06-16 05:11:00 Test Item Value Reference Range Interpretation Comments Ca Norm WB (test code = Ca Norm WB) 1.12 1.05-1.25 [facility] HospitalWkovingTGSFEPLCQH6140-62-76 05:37:00 Test Item Value Reference Range Interpretation Comments Segs (test code = Segs) 84.3 45.0-75.0 [facility] HospitalZboeexiSLOKZTBIXK7062-41-83 05:37:00 Test Item Value Reference Range Interpretation Comments Lymphocytes (test code = Lymphocytes) 7.4 20.0-40.0 [facility] HospitalLjqcesyKZILOSJCIP8087-27-09 05:37:00 Test Item Value Reference Range Interpretation Comments Eosinophils # (test code 0.1 See_Comment [A utomated message] The = Eosinophils #) system [facility] h generated this result tra nsmitted reference range : <=0.5. The reference r fernando was not used to int erpret this result as normal/abnormal . [facility] HospitalOekpusdOPSDSIXHFO5337-64-67 05:37:00 Test Item Value Reference Range Interpretation Comments Lymphocytes # (test code = Lymphocytes 0.6 1.0-5.5 #) [facility] HospitalOhpartbHOUFAESYKJ7915-84-15 05:37:00 Test Item Value Reference Range Interpretation Comments Monocytes # (test code 0.5 See_Comment [Aut omated message] The = Monocytes #) system which generated this result tra nsmitted reference range : <=0.8. The reference r fernando was not used to int erpret this result as normal/abnormal . [facility] HospitalXqmalpfMJNUYOUDVS6091-40-98 05:37:00 Test Item Value Reference Range Interpretation Comments Monocytes (test code = Monocytes) 6.7 2.0-12.0 [facility] HospitalIwmvmjbKYJKVIIWMM4845-02-79 05:37:00 Test Item Value Reference Range Interpretation Comments Eosinophils (test code = 1.4 See_Comment [A utomated message] The Eosinophils) system which ge nerated this result tra nsmitted reference range : <=4.0. The reference r fernando was not used to int erpret this result as normal/abnormal . [facility] HospitalPzhzokzTQABQILFIY8216-28-02 05:37:00 Test Item Value Reference Range Interpretation Comments Basophils (test code = 0.2 See_Comment [Aut omated message] The Basophils) system which ge nerated this result tra nsmitted reference range : <=1.0. The reference r fernando was not used to int erpret this result as normal/abnormal . [facility] HospitalByrcndnDDWLZSNYIN6310-33-43 05:37:00 Test Item Value Reference Range Interpretation Comments Segs-Bands # (test code = Segs-Bands #) 6.3 1.5-8.1 [facility] HospitalIrgsocyYAIUGRHFLW5328-48-08 05:37:00 Test Item Value Reference Range Interpretation Comments MCV (test code = MCV) 82.1 80.0-98.0 [facility] HospitalFwrjdjoBOZFYYFBVW3638-20-84 05:37:00 Test Item Value Reference Range Interpretation Comments Hct (test code = Hct) 27.1 36.0-48.0 [facility] HospitalIlvmwyvBIOALFJFKP5418-20-19 05:37:00 Test Item Value Reference Range Interpretation Comments MCHC (test code = MCHC) 34.5 32.0-36.0 [facility] HospitalBryoumdAWNPZUQEVB0662-25-78 05:37:00 Test Item Value Reference Range Interpretation Comments MCH (test code = MCH) 28.3 pg 27.0-31.0 [facility] HospitalDazwjroROTDMBUDZI5892-89-99 05:37:00 Test Item Value Reference Range Interpretation Comments RBC (test code = RBC) 3.29 4.20-5.40 [facility] HospitalFoifklgGZCLYRPFUD6576-65-06 05:37:00 Test Item Value Reference Range Interpretation Comments WBC (test code = WBC) 7.5 3.7-10.4 [facility] HospitalRfxrvulAIUZXRPUQG3977-19-18 05:37:00 Test Item Value Reference Range Interpretation Comments RDW (test code = RDW) 15.1 11.5-14.5 [facility] HospitalQliiilyLIVAZFEDTI5968-96-72 05:37:00 Test Item Value Reference Range Interpretation Comments Platelet (test code = Platelet) 191 133-450 [facility] HospitalYizkiwvMLXHYXXSAO9494-12-47 05:37:00 Test Item Value Reference Range Interpretation Comments MPV (test code = MPV) 7.8 7.4-10.4 [facility] HospitalPkbjsiaBKPQEKXPIK3992-98-11 05:37:00 Test Item Value Reference Range Interpretation Comments Hgb (test code = Hgb) 9.3 12.0-16.0 [facility]2018-06-15 05:37:00 Test Item Value Reference Range Interpretation Comments Ca Norm WB (test code = Ca Norm WB) 1.08 1.05-1.25 [facility]2018-06-15 05:37:00 Test Item Value Reference Range Interpretation Comments Ca Ion WB (test code = Ca Ion WB) 1.04 1.05-1.25 [facility]2018-06-14 11:46:00 Test Item Value Reference Range Interpretation Comments A/G Ratio (test code = A/G Ratio) 0.6 1 0.7-1.6 [facility]2018-06-14 11:46:00 Test Item Value Reference Range Interpretation Comments Globulin (test code = Globulin) 3.6 2.7-4.2 [facility]2018-06-14 11:46:00 Test [...] (test code = Bili Total) 1.1 0.2-1.3 [place] [id number] 11:46:00 Test Item Value Reference Range Interpretation Comments Aldosterone (test code = no gt See_Comment [A utomated message] The Aldosterone) system which ge nerated this result tra nsmitted reference range : <=30.0. The reference r fernando was not used to int erpret this result as normal/abnormal . [place] [id number] 11:46:00 Test Item Value Reference Range Interpretation Comments Renin Activity (test code = Renin 0.527 0.167-5.380 Activity) [facility]2018-06-14 11:46:00 Test Item Value Reference Range Interpretation Comments UA Urobilinogen (test code = UA <=1.0 mg/dL 0.1-1.0 Urobilinogen) [facility] AND [id number] 11:46:00 Test Item Value Reference Range Interpretation Comments UA Mucus (test code = UA Mucus) Few /LPF [facility] AND [id number] 11:46:00 Test Item Value Reference Range Interpretation Comments UA Sq Epi (test code = UA Sq Occasional /LPF Epi) [facility] AND [id number] 11:46:00 Test Item Value Reference Range Interpretation Comments UA Nitrite (test code Negative (02/22/18 6:46 = UA Nitrite) AM) [facility] AND [id number] 11:46:00 Test Item Value Reference Range Interpretation Comments UA Hyal Cast (test 1 See_Comment [Automat ed message] The code = UA Hyal Cast) system which generated this result transmit timur reference range : <=2. The reference range was not used to interpr et this result as jasmyne l/abnormal. [facility] AND [id number] 11:46:00 Test Item Value Reference Range Interpretation Comments UA RBC (test code = 1 See_Comment [Automa timur message] The UA RBC) system which ge nerated this result transmit timur reference range : <=2. The reference range was not used to interpr et this result as jasmyne l/abnormal. [facility] [employer] AND [id number] 11:46:00 Test Item Value Reference Range Interpretation Comments UA Leuk Est (test Negative (02/22/18 6:46 code = UA Leuk Est) AM) [facility] AND [id number] 11:46:00 Test Item Value Reference Range Interpretation Comments UA WBC (test code = 3 See_Comment [Automa timur message] The UA WBC) system which ge nerated this result transmit timur reference range : <=5. The reference range was not used to interpr et this result as jasmyne l/abnormal. [facility] [employer] AND [id number] 11:46:00 Test Item Value Reference Range Interpretation Comments UA Turbidity (test code Slight *ABN*(02/22/18 = UA Turbidity) 6:46 AM) [facility] AND [id number] 11:46:00 Test Item Value Reference Range Interpretation Comments UA Color (test code = Yellow *NA*(02/22/18 UA Color) 6:46 AM) [facility] AND [id number] 11:46:00 Test Item Value Reference Range Interpretation Comments UA pH (test code = UA pH) 6.0 1 5.0-8.0 [facility] AND [id number] 11:46:00 Test Item Value Reference Range Interpretation Comments UA Ketones (test code = UA Negative mg/dL Ketones) [facility] AND [id number] 11:46:00 Test Item Value Reference Range Interpretation Comments UA Protein (test code = UA Protein) 20 mg/dL [facility] AND [id number] 11:46:00 Test Item Value Reference Range Interpretation Comments UA Spec Grav (test code = UA Spec 1.011 1 Grav) [facility] AND [id number] 11:46:00 Test Item Value Reference Range Interpretation Comments UA Glucose (test code = UA Glucose) 70 mg/dL [facility] AND [id number] 11:46:00 Test Item Value Reference Range Interpretation Comments UA Bili (test code = Negative *NA*(02/22/18 UA Bili) 6:46 AM) [facility] AND [id number] 11:46:00 Test Item Value Reference Range Interpretation Comments UA Blood (test code = Negative (02/22/18 6:46 UA Blood) AM) [facility]2018-06-14 11:46:00 Test Item Value Reference Range Interpretation Comments U Creatinine (test code = U Creatinine) 22.10 [facility]2018-06-14 11:46:00 Test Item Value Reference Range Interpretation Comments U Chloride (test code = U Chloride) 155 [facility]2018-06-14 11:46:00 Test Item Value Reference Range Interpretation Comments U Potassium (test code = U Potassium) 61.1 [facility]2018-06-14 11:46:00 Test Item Value Reference Range Interpretation Comments U Sodium (test code = U Sodium) 98 [facility]2018-06-14 04:44:00 Test Item Value Reference Range Interpretation Comments Magnesium Lvl (test code = Magnesium 2.4 1.8-2.4 Lvl) [facility]2018-06-14 04:44:00 Test Item Value Reference Range Interpretation Comments Phosphorus (test code = Phosphorus) 2.6 2.5-4.5 [facility] [id number] 04:44:00 Test Item Value Reference Range Interpretation Comments Ca Ion WB (test code = Ca Ion WB) 1.06 1.05-1.25 [facility]2018-06-14 04:44:00 Test Item Value Reference Range Interpretation Comments Ca Norm WB (test code = Ca Norm WB) 1.09 1.05-1.25 [facility]2018-06-13 22:33:00 Test Item Value Reference Range Interpretation Comments Lactic Acid Lvl (test code = Lactic 1.4 0.5-2.2 Acid Lvl) [facility]2018-06-13 20:03:00 Test Item Value Reference Range Interpretation Comments U Osmolality (test code = U Osmolality) 360 300-800 [facility]2018-06-13 20:03:00 Test Item Value Reference Range [...] as jasmyne l/abnormal. [facility]2018-06-13 15:44:00 Test Item Value Reference Range Interpretation Comments Bili Total (test code = Bili Total) 1.2 0.2-1.3 [facility]2018-06-13 15:44:00 Test Item Value Reference Range Interpretation Comments AST (test code = AST) 77 See_Comment [Auto mated message] The system which ge nerated this result transmit timur reference range : <=37. The reference range was not used to interpr et this result as jasmyne l/abnormal. [employer] [id number] 15:44:00 Test Item Value Reference Range Interpretation Comments A/G Ratio (test code = A/G Ratio) 0.6 1 0.7-1.6 [facility] [employer] [id number] 15:44:00 Test Item Value Reference Range Interpretation Comments Alk Phos (test code = Alk Phos) 269 39-136 [facility] [employer] [id number] 15:44:00 Test Item Value Reference Range Interpretation Comments Globulin (test code = Globulin) 4.1 2.7-4.2 [facility] [employer] [id number] 15:44:00 Test Item Value Reference Range Interpretation Comments Osmolality (test code = Osmolality) 270 280-300 [facility] [employer] [id number] 08:30:00 Test Item Value Reference Range Interpretation Comments Hgb A1C (test code = Hgb A1C) 6.5 [facility] [employer] [id number] 06:01:00 Test Item Value Reference Range Interpretation Comments proBNP (test code = 4235 See_Comment [Automa timur message] The proBNP) system which ge nerated this result tra nsmitted reference range : <=450. The reference r fernando was not used to int erpret this result as jasmyne l/abnormal. [facility] [employer] [id number] 06:01:00 Test Item Value Reference Range Interpretation Comments BNP (test code = BNP) 345 [facility] [employer] [id number] 06:01:00 Test Item Value Reference Range Interpretation Comments Lactic Acid Lvl (test code = Lactic 1.7 0.5-2.2 Acid Lvl) [facility] [employer] [id number] 06:01:00 Test Item Value Reference Range Interpretation [...] (test code = Alk Phos) 162 39-136 [facility]2018-06-12 11:57:00 Test Item Value Reference Range Interpretation Comments Albumin Lvl (test code = Albumin Lvl) 2.5 3.5-5.0 [facility]2018-06-12 11:57:00 Test Item Value Reference Range Interpretation Comments Total Protein (test code = Total 6.0 6.4-8.4 Protein) [facility]2018-06-12 11:57:00 Test Item Value Reference Range Interpretation Comments Globulin (test code = Globulin) 3.5 2.7-4.2 [facility] [employer] [id number] 11:57:00 Test Item Value Reference Range Interpretation Comments A/G Ratio (test code = A/G Ratio) 0.7 1 0.7-1.6 [facility] [id number] 11:57:00 Test Item Value Reference Range Interpretation Comments Procalcitonin Lvl (test 0.35 See_Comment [Au tomated message] code = Procalcitonin Lvl) Th e system which generated this result transmitted ref erence range: <=0.10. The reference range was not used to interpr et this result as normal/abnormal . [facility] CenterBACTERIAL - [id number] 17:56:00 Test Item Value Reference Range Interpretation Comments MRSA by PCR (test Negative (02/19/18 12:56 code = MRSA by PCR) PM) [facility] AND [id number] 11:34:00 Test Item Value Reference Range Interpretation Comments UA Leuk Est (test Moderate *ABN*(02/19/18 code = UA Leuk Est) 6:34 AM) [facility] AND [id number] 11:34:00 Test Item Value Reference Range Interpretation Comments UA Urobilinogen (test code = UA 0.2 0.1-1.0 Urobilinogen) [facility] AND [id number] 11:34:00 Test Item Value Reference Range Interpretation Comments UA Nitrite (test code Positive *ABN*(02/19/18 = UA Nitrite) 6:34 AM) [facility] AND [id number] 11:34:00 Test Item Value Reference Range Interpretation Comments UA pH (test code = UA pH) 8.5 1 5.0-8.0 [facility] AND [id number] 11:34:00 Test Item Value Reference Range Interpretation Comments UA Protein (test code Negative (02/19/18 6:34 = UA Protein) AM) [facility] System AND [id number] 11:34:00 Test Item Value Reference Range Interpretation Comments UA Glucose (test code Negative (02/19/18 6:34 = UA Glucose) AM) [facility] AND [id number] 11:34:00 Test Item Value Reference Range Interpretation Comments UA Blood (test code = Negative (02/19/18 6:34 UA Blood) AM) [facility] AND [id number] 11:34:00 Test Item Value Reference Range Interpretation Comments UA Ketones (test code Negative *NA*(02/19/18 = UA Ketones) 6:34 AM) [facility] AND [id number] 11:34:00 Test Item Value Reference Range Interpretation Comments UA Bili (test code = Negative *NA*(02/19/18 UA Bili) 6:34 AM) [facility] AND [id number] 11:34:00 Test Item Value Reference Range Interpretation Comments UA Color (test code = Yellow *NA*(02/19/18 UA Color) 6:34 AM) [facility] AND [id number] 11:34:00 Test Item Value Reference Range Interpretation Comments UA Spec Grav (test code = UA Spec 1.010 1 Grav) [facility] AND [id number] 11:34:00 Test Item Value Reference Range Interpretation Comments UA Turbidity (test code = Clear (02/19/18 6:34 UA Turbidity) AM) [facility] AND [id number] 11:34:00 Test Item Value Reference Range Interpretation Comments UA Amorph Aliya (test code = Occasional /HPF UA Amorph Aliya) [facility] AND [id number] 11:34:00 Test Item Value Reference Range Interpretation Comments UA Sq Epi (test code = UA Sq Occasional /LPF Epi) [facility] AND [id number] 11:34:00 Test Item Value Reference Range Interpretation Comments UA WBC (test code = 28 See_Comment [Automa timur message] The UA WBC) system which ge nerated this result transmit tiumr reference range : <=5. The reference range was not used to interpr et this result as jasmyne l/abnormal. [facility] AND [id number] 11:34:00 Test Item Value Reference Range Interpretation Comments UA RBC (test code = 8 See_Comment [Automa timur message] The UA RBC) system which ge nerated this result transmit timur reference range : <=2. The reference range was not used to interpr et this result as jasmyne l/abnormal. [facility] [id number] 11:34:00 Test Item Value Reference Range Interpretation Comments UA Mucus (test code = UA Mucus) Moderate /LPF [facility] [id number] 10:49:00 Test Item Value Reference Range Interpretation Comments Troponin-T (test code no gt See_Comment [Auto mated message] The = Troponin-T) system which g enerated this result transmit timur reference range : <=0.100. The reference r fernando was not used to interpr et this result as jasmyne l/abnormal. [facility]ft[facility]rcJJAGJQVJUD5693-03-48 10:49:00 Test Item Value Reference Range Interpretation Comments Plav Effect Plt (test code = Plav 281 Effect Plt) [facility] Hospit[id number] 10:49:00 Test Item Value Reference Range Interpretation Comments ASA Effect Plt (test code = ASA Effect 565 Plt) [facility] [id number] 10:06:00 Test Item Value Reference Range Interpretation Comments Troponin-I (test code 0.04 See_Comment [Auto mated message] The = Troponin-I) system which g enerated this result transmit timur reference range : <=0.40. The reference r fernando was not used to interpr et this result as jasmyne l/abnormal. [facility] Center[facility] [id number] 09:31:00 Test Item Value Reference Range Interpretation Comments FFP product (test code Product available = FFP product) (02/19/18 4:31 AM) [facility] CenterCHE[facility] [id number] 08:36:00 Test Item Value Reference Range Interpretation Comments Lactic Acid Lvl (test code = Lactic 1.7 0.5-2.2 Acid Lvl) [facility] [id number] 08:31:00 Test Item Value Reference Range Interpretation Comments Antibody Scrn (test Negative (02/19/18 3:31 code = Antibody Scrn) AM) [facility] [employer] [id number] 08:31:00 Test Item Value Reference Range Interpretation Comments ABO/Rh (test code = ABO/Rh) A POS [facility] HospitalCjbzfhtVYTRHSJKVJ3034-13-36 08:31:00 Test Item Value Reference Range Interpretation Comments PTT (test code = PTT) 51.4 s 22.9-35.8 [facility] HospitalUdusjkyOQRNYEIZHE9759-87-41 08:31:00 Test Item Value Reference Range Interpretation Comments INR (test code = INR) 1.04 1 0.85-1.17 [facility] HospitalRljvfgfEFXEWPTUHF4973-79-41 08:31:00 Test Item Value Reference Range Interpretation Comments PT (test code = PT) 13.6 s 12.0-14.7 [facility] HospitalBwoypirUGHPNAFZWY8559-28-59 08:31:00 Test Item Value Reference Range Interpretation Comments K-time Rapid (test code = K-time 0.8 min 0.6-2.3 Rapid) [facility] HospitalAejtnueTXPWOSPZVD3196-73-73 08:31:00 Test Item Value Reference Range Interpretation Comments R-time Rapid (test code = R-time 0.6 min 0.4-0.7 Rapid) [facility] HospitalVwelxhuGAPIEXQODT8657-42-93 08:31:00 Test Item Value Reference Range Interpretation Comments Split Point Rapid (test code = Split 0.5 min Point Rapid) [facility] HospitalTxiecbvRWWQLPPDJC0494-35-85 08:31:00 Test Item Value Reference Range Interpretation Comments ACT (TEG) Rapid (test code = ACT (TEG) 105 s 86-118 Rapid) [facility] H[id number] 08:31:00 Test Item Value Reference Range Interpretation Comments G-value Rapid (test code = G-value 17.0 5.0-11.6 Rapid) [facility] HospitalQjbdopfCLMCZOUSOY6594-59-55 08:31:00 Test Item Value Reference Range Interpretation Comments Estimated % Lysis Rapid 1.2 See_Comment [Au tomated message] The (test code = Estimated syste m which generated % Lysis Rapid) this result t ransmitted reference range : <=7.5. The reference r fernando was not used to int erpret this result as normal/abnormal . [facility] HospitalAdqoayoBASSTVUUMA4574-57-77 08:31:00 Test Item Value Reference Range Interpretation Comments Angle Rapid (test code = Angle 81 degrees 64-80 Rapid) [facility] HospitalThxbdatYEDZHBGHRC8292-11-66 08:31:00 Test Item Value Reference Range Interpretation Comments Max Amplitude Rapid (test code = Max 77 mm 52-71 Amplitude Rapid) [facility] HospitalYqyxdrkQHCPSKRFJVSD5777-50-85 13:38:00 Test Item Value Reference Range Interpretation [...] (test code = eGFR) [address] [facility] HospitalEdhzpsoEVNZDHANYOHN8306-01-86 05:33:00 Test Item Value Reference Range Interpretation Comments Sodium Lvl (test code = Sodium Lvl) 140 135-[address] [facility] HospitalUflvxteDJEPKDFGCVMF9978-71-99 05:33:00 Test Item Value Reference Range Interpretation Comments Potassium Lvl (test code = Potassium 4.1 3.5-5.1 Lvl) [facility] HospitalEntfyrsCZAAYNIETWNE7826-27-64 18:24:00 Test Item Value Reference Range Interpretation [...] (test code = Glucose Lvl) 169 70-99 [facility] HospitalHxxxqnhBUONUJGWEU5421-10-07 05:20:00 Test Item Value Reference Range Interpretation Comments Lymphocytes # (test code = Lymphocytes 1.6 1.0-5.5 #) [facility] HospitalXvsjjnjWXGXANRIIU8141-68-99 05:20:00 Test Item Value Reference Range Interpretation Comments Segs-Bands # (test code = Segs-Bands #) 6.7 1.5-8.1 [facility] HospitalZiawzwrDBRRGACGDQ7566-37-62 05:20:00 Test Item Value Reference Range Interpretation Comments Monocytes # (test code 0.8 See_Comment [Aut omated message] The = Monocytes #) system which generated this result tra nsmitted reference range : <=0.8. The reference r fernando was not used to int erpret this result as normal/abnormal . [facility] HospitalGsqecciASMQUCAZUQ4013-32-37 05:20:00 Test Item Value Reference Range Interpretation Comments Eosinophils # (test code 0.1 See_Comment [A utomated message] The = Eosinophils #) system whic h generated this result tra nsmitted reference range : <=0.5. The reference r fernando was not used to int erpret this result as normal/abnormal . [facility] HospitalIfpniegHHNTWNBKOA0037-81-95 05:20:00 Test Item Value Reference Range Interpretation Comments Monocytes (test code = Monocytes) 8.3 2.0-12.0 [facility] HospitalIktzvgxDWTKJMLSMG7060-95-76 05:20:00 Test Item Value Reference Range Interpretation Comments Eosinophils (test code = 1.4 See_Comment [A utomated message] The Eosinophils) system which ge nerated this result tra nsmitted reference range : <=4.0. The reference r fernando was not used to int erpret this result as normal/abnormal . [facility] HospitalKkcrserVGXRAMROAH6206-75-20 05:20:00 Test Item Value Reference Range Interpretation Comments Basophils (test code = 0.4 See_Comment [Aut omated message] The Basophils) system which ge nerated this result tra nsmitted reference range : <=1.0. The reference r fernando was not used to int erpret this result as normal/abnormal . [facility] HospitalVvdoambNAVVHKGRQI6486-75-15 05:20:00 Test Item Value Reference Range Interpretation Comments Lymphocytes (test code = Lymphocytes) 17.5 20.0-40.0 [facility] HospitalCsffymbBINYEHOGYA2047-08-09 05:20:00 Test Item Value Reference Range Interpretation Comments Segs (test code = Segs) 72.4 45.0-75.0 [facility] HospitalQhksrhlMIVGNHAXCZ9054-69-28 05:20:00 Test Item Value Reference Range Interpretation Comments MCV (test code = MCV) 83.0 80.0-98.0 [facility] HospitalMbreemeJWXTDCEMKO6215-86-08 05:20:00 Test Item Value Reference Range Interpretation Comments MCH (test code = MCH) 28.3 pg 27.0-31.0 [facility] HospitalRjltwvlQNTRIYVXLV7158-36-44 05:20:00 Test Item Value Reference Range Interpretation Comments Hct (test code = Hct) 29.7 36.0-48.0 [facility] HospitalQzmlgowCXPLOTPEKM2829-18-47 05:20:00 Test Item Value Reference Range Interpretation Comments Platelet (test code = Platelet) 257 133-450 [facility] HospitalAhnaegrSEVMBWTODJ8756-83-36 05:20:00 Test Item Value Reference Range Interpretation Comments MPV (test code = MPV) 8.3 7.4-10.4 [facility] HospitalPepkguyQZUHFMZYRI4971-28-93 05:20:00 Test Item Value Reference Range Interpretation Comments RDW (test code = RDW) 15.1 11.5-14.5 [facility] HospitalYnsugtoFPYLVEOEJD7278-18-09 05:20:00 Test Item Value Reference Range Interpretation Comments MCHC (test code = MCHC) 34.1 32.0-36.0 [facility] HospitalBtndnqdOYAZNHTAUP9482-84-56 05:20:00 Test Item Value Reference Range Interpretation Comments RBC (test code = RBC) 3.58 4.20-5.40 [facility] HospitalYdznkxxINOSSMAGGA8651-84-95 05:20:00 Test Item Value Reference Range Interpretation Comments Hgb (test code = Hgb) 10.1 12.0-16.0 [facility] HospitalVvwakccXGVDCEVZZX8476-05-52 05:20:00 Test Item Value Reference Range Interpretation Comments WBC (test code = WBC) 9.3 3.7-10.4 [facility] HospitalOuyknwqFKHRELJFRJ3061-03-42 10:57:00 Test Item Value Reference Range Interpretation Comments PTT (test code = PTT) 48.4 s 22.9-35.8 [facility] HospitalIrmbionTBWCTROZPA4701-07-10 10:57:00 Test Item Value Reference Range Interpretation Comments INR (test code = INR) 1.17 1 0.85-1.17 [facility] HospitalJrwpqlnLKCMWVNTHZ1154-54-56 10:57:00 Test Item Value Reference Range Interpretation Comments PT (test code = PT) 15.0 s 12.0-14.7 [facility] HospitalCfejglvBSAZMBAJNH5989-29-43 10:57:00 Test Item Value Reference Range Interpretation Comments Ly30 (test code = 2.3 See_Comment [Automate d message] The Ly30) system which ge nerated this result transmit timur reference range : <=7.5. The reference range was not used to interpr et this result as jasmyne l/abnormal. [facility] HospitalDtyjhxvBCCZPZRJFN7502-42-02 10:57:00 Test Item Value Reference Range Interpretation Comments TEG Data (test code = See Note (02/08/18 5:57 TEG Data) AM) [facility] HospitalRajjwzyEOZRKMGNLO7447-41-50 10:57:00 Test Item Value Reference Range Interpretation Comments Coag Index (test code 4.0 1 See_Comment [Auto mated message] The = Coag Index) system which g enerated this result transmit timur reference range : <=3.0. The reference range was not used to interpr et this result as jasmyne l/abnormal. [facility] HospitalIraibiuYPNESEPDTP3409-11-84 10:57:00 Test Item Value Reference Range Interpretation Comments G-value (test code = G-value) 12.6 4.5-11.0 [facility] HospitalZoliimmMTFTXGMUIM3630-72-11 10:57:00 Test Item Value Reference Range Interpretation Comments Max Amp (test code = Max Amp) 71.6 mm 50.0-70.0 [facility] HospitalHoorfltBBKEEZSAQX0642-89-47 10:57:00 Test Item Value Reference Range Interpretation Comments Angle (test code = Angle) 74.1 degrees 53.0-72.0 [facility] HospitalUqqtrcfNMXLWGRMXQ8083-95-59 10:57:00 Test Item Value Reference Range Interpretation Comments K-time (test code = K-time) 1.1 min 1.0-3.0 [facility] HospitalTfspgnjPQUYTEOBGZ1065-08-76 10:57:00 Test Item Value Reference Range Interpretation Comments R-time (test code = R-time) 3.3 min 5.0-10.0 [facility] HospitalQytaddvAFLAVDVXJI3583-39-33 10:57:00 Test Item Value Reference Range Interpretation Comments TEG Interp (test Thrombelastograph results code = TEG show shortened value of R Interp) and increased values of both Angle Alpha and MA. These findings are suggestive of platelet and enzymatic hypercoagulation which may be seen in early phase of DIC. Monitor for DIC with DIC panel may be indicated. CPT:48508 [facility] ERPUJ3865-54-53 05:45:00 Test Item Value Reference Range Interpretation Comments Magnesium Lvl (test code = Magnesium 2.2 1.8-2.4 Lvl) [facility] EUYMH8556-84-85 05:45:00 Test Item Value Reference Range Interpretation Comments Phosphorus (test code = Phosphorus) 2.1 2.5-4.[address] [facility] HospitalXahwyuoQDZHMGYTXPZG3174-46-60 05:45:00 Test Item Value Reference Range Interpretation Comments AGAP (test code = AGAP) 13.5 10.0-20.[address] [facility] HospitalDvkverzRUWXDPMKRUCS8961-34-90 05:45:00 Test Item Value Reference Range Interpretation Comments BUN (test code = BUN) 13 7-[address] [facility] HospitalEbsujixZPEFUAYYDOCQ1845-71-47 05:45:00 Test Item Value Reference Range Interpretation Comments Creatinine Lvl (test code = Creatinine 0.73 0.50-1.40 Lvl) [facility] HospitalLeanvhnYFJPJAHBHJTJ3944-85-20 05:45:00 Test Item Value Reference Range Interpretation Comments Calcium Lvl (test code = Calcium Lvl) 8.7 8.5-10.[address] [facility] HospitalVumgjjvPNEEONLOVHZB8812-08-41 05:45:00 Test Item Value Reference Range Interpretation Comments Chloride Lvl (test code = Chloride Lvl) 105 95-[address] [facility] HospitalUypvdadTSFUUFGORNZF9505-32-65 05:45:00 Test Item Value Reference Range Interpretation Comments CO2 (test code = CO2) 24 24-[address] [facility] HospitalYtgwemgBNKXGENNYSJY4188-00-72 05:45:00 Test Item Value Reference Range Interpretation Comments eGFR (test code = eGFR) [address] [facility] HospitalRexrfsuHQNNXGWOZMAK4182-06-69 05:45:00 Test Item Value Reference Range Interpretation Comments Glucose Lvl (test code = Glucose Lvl) 139 70-99 [facility] HospitalDkoseyzPJEFRFJBSE3109-02-85 05:45:00 Test Item Value Reference Range Interpretation Comments WBC (test code = WBC) 8.7 3.7-10.4 [facility] HospitalTireatrYOAYOEKEFK2985-24-99 05:45:00 Test Item Value Reference Range Interpretation Comments RDW (test code = RDW) 14.8 11.5-14.5 [facility] HospitalNghhqldWQIOCINBIE6001-88-55 05:45:00 Test Item Value Reference Range Interpretation Comments MCHC (test code = MCHC) 33.8 32.0-36.0 [facility] HospitalHdarfkpRDTOMTLTMU4894-66-43 05:45:00 Test Item Value Reference Range Interpretation Comments MCH (test code = MCH) 28.3 pg 27.0-31.0 [facility] HospitalBdtipvvPXVRVDYXAN2502-54-52 05:45:00 Test Item Value Reference Range Interpretation Comments MPV (test code = MPV) 8.2 7.4-10.4 [facility] HospitalCcsbsrwKCNMOLKOOZ9496-17-02 05:45:00 Test Item Value Reference Range Interpretation Comments Platelet (test code = Platelet) 228 133-450 [facility] HospitalFtvhudkECBKQIYVPG6773-58-45 05:45:00 Test Item Value Reference Range Interpretation Comments Hgb (test code = Hgb) 9.5 12.0-16.0 [facility] HospitalCvkbwazUTLPGMEZDQ1297-83-48 05:45:00 Test Item Value Reference Range Interpretation Comments Hct (test code = Hct) 28.0 36.0-48.0 [facility] HospitalDoijsgeKSYJSNGKQT2283-68-37 05:45:00 Test Item Value Reference Range Interpretation Comments MCV (test code = MCV) 83.8 80.0-98.0 [facility] HospitalQjykjdtBLYMIERYFC4146-74-80 05:45:00 Test Item Value Reference Range Interpretation Comments RBC (test code = RBC) 3.34 4.20-5.40 [facility] HospitalPwodbjcSXPOGOGAOT0803-52-83 05:45:00 Test Item Value Reference Range Interpretation Comments Lymphocytes (test code = Lymphocytes) 16.6 20.0-40.0 [facility] HospitalTykgwbaYHUIDIQIKJ5368-85-72 05:45:00 Test Item Value Reference Range Interpretation Comments Segs (test code = Segs) 73.5 45.0-75.0 [facility] HospitalXyjjbamBPENALXSNK8092-84-72 05:45:00 Test Item Value Reference Range Interpretation Comments Monocytes # (test code 0.8 See_Comment [Aut omated message] The = Monocytes #) system which generated this result tra nsmitted reference range : <=0.8. The reference r fernando was not used to int erpret this result as normal/abnormal . [facility] HospitalVimhhzyLHOZWNRBSH4149-39-01 05:45:00 Test Item Value Reference Range Interpretation Comments Segs-Bands # (test code = Segs-Bands #) 6.4 1.5-8.1 [facility] HospitalLjylwloKOPACBDPQX2039-34-42 05:45:00 Test Item Value Reference Range Interpretation Comments Basophils (test code = 0.1 See_Comment [Aut omated message] The Basophils) system which ge nerated this result tra nsmitted reference range : <=1.0. The reference r fernando was not used to int erpret this result as normal/abnormal . [facility] HospitalQbdemeiBJJUHRZSUI7099-83-75 05:45:00 Test Item Value Reference Range Interpretation Comments Eosinophils (test code = 0.4 See_Comment [A utomated message] The Eosinophils) system which ge nerated this result tra nsmitted reference range : <=4.0. The reference r fernando was not used to int erpret this result as normal/abnormal . [facility] HospitalLauidauJYWXHEESTT4540-03-96 05:45:00 Test Item Value Reference Range Interpretation Comments Monocytes (test code = Monocytes) 9.4 2.0-12.0 [facility] HospitalHpkgcgtUPTLVGOOPG8236-83-58 05:45:00 Test Item Value Reference Range Interpretation Comments Lymphocytes # (test code = Lymphocytes 1.4 1.0-5.5 #) [facility]2018-05-31 05:45:00 Test Item Value Reference Range Interpretation Comments Ca Norm WB (test code = Ca Norm WB) 1.15 1.05-1.25 [facility]2018-05-31 05:45:00 Test Item Value Reference Range Interpretation Comments Ca Ion WB (test code = Ca Ion WB) 1.12 1.05-1.25 [facility]2018-05-30 05:06:00 Test Item Value Reference Range Interpretation Comments Magnesium Lvl (test code = Magnesium 2.4 1.8-2.4 Lvl) [facility]2018-05-30 05:06:00 Test Item Value Reference Range Interpretation Comments Phosphorus (test code = Phosphorus) 2.6 2.5-4.5 [facility] HospitalWvtptqoQDCJZFFPAG4022-25-61 05:06:00 Test Item Value Reference Range Interpretation Comments PTT (test code = PTT) 52.3 s 22.9-35.8 [facility] HospitalLtxvpqlNOOHYMGMQX7114-02-06 05:06:00 Test Item Value Reference Range Interpretation Comments PT (test code = PT) 14.8 s 12.0-14.7 [facility] HospitalZdgoteqJTVFTKCBMO1954-14-72 05:06:00 Test Item Value Reference Range Interpretation Comments INR (test code = INR) 1.16 1 0.85-1.17 [facility] HospitalIwtrdphOGCQJJYITX2683-32-74 05:06:00 Test Item Value Reference Range Interpretation Comments Estimated % Lysis Rapid 2.0 See_Comment [Au tomated message] The (test code = Estimated syste m which generated % Lysis Rapid) this result t ransmitted reference range : <=7.5. The reference r fernando was not used to int erpret this result as normal/abnormal . [facility] HospitalAxczlowXRHIGPBILD5748-47-64 05:06:00 Test Item Value Reference Range Interpretation Comments R-time Rapid (test code = R-time 0.8 min 0.4-0.7 Rapid) [facility] HospitalVlfgcivKQMACKBLFL4384-65-95 05:06:00 Test Item Value Reference Range Interpretation Comments K-time Rapid (test code = K-time 0.8 min 0.6-2.3 Rapid) [facility] HospitalFyxywfuVKRYAJVKCM9319-58-20 05:06:00 Test Item Value Reference Range Interpretation Comments Split Point Rapid (test code = Split 0.7 min Point Rapid) [facility] HospitalBbihczdSFHHLYUVSY1828-08-09 05:06:00 Test Item Value Reference Range Interpretation Comments Angle Rapid (test code = Angle 80 degrees 64-80 Rapid) [facility] HospitalTlcdrhqMEIJJWLVVV3141-07-35 05:06:00 Test Item Value Reference Range Interpretation Comments Max Amplitude Rapid (test code = Max 76 mm 52-71 Amplitude Rapid) [facility] HospitalUyetrcgMRSPNFWJFO7574-50-96 05:06:00 Test Item Value Reference Range Interpretation Comments ACT (TEG) Rapid (test code = ACT (TEG) 121 s 86-118 Rapid) [facility] HospitalFopkibaGVBNROCCDG5532-53-00 05:06:00 Test Item Value Reference Range Interpretation Comments G-value Rapid (test code = G-value 15.5 5.0-11.6 Rapid) [facility] HospitalArqoweiISAAETPWLW9724-97-83 05:06:00 Test Item Value Reference Range Interpretation Comments WBC (test code = WBC) 7.3 3.7-10.4 [facility] HospitalWsfgftqQSBVNZLTQC8300-36-84 05:06:00 Test Item Value Reference Range Interpretation Comments RBC (test code = RBC) 3.28 4.20-5.40 [facility] HospitalRdcpxjmTIKULWPSOT3256-89-50 05:06:00 Test Item Value Reference Range Interpretation Comments MPV (test code = MPV) 8.0 7.4-10.4 [facility] HospitalFggzxbcQOTEFLOJXB9750-88-56 05:06:00 Test Item Value Reference Range Interpretation Comments MCHC (test code = MCHC) 34.8 32.0-36.0 [facility] HospitalLdgtfboLGRYBMKYZG2579-04-34 05:06:00 Test Item Value Reference Range Interpretation Comments RDW (test code = RDW) 14.6 11.5-14.5 [facility] HospitalUddeqgeDGWLAPWUEJ4469-08-08 05:06:00 Test Item Value Reference Range Interpretation Comments Platelet (test code = Platelet) 228 133-450 [facility] HospitalSlsgszcCTXITWENJK5988-40-97 05:06:00 Test Item Value Reference Range Interpretation Comments MCV (test code = MCV) 82.5 80.0-98.0 [facility] HospitalTejsaudALJZFWEBSZ6363-14-33 05:06:00 Test Item Value Reference Range Interpretation Comments MCH (test code = MCH) 28.7 pg 27.0-31.0 [facility] HospitalUkmnmkkXVYCICRYQO7236-08-47 05:06:00 Test Item Value Reference Range Interpretation Comments Hgb (test code = Hgb) 9.4 12.0-16.0 [facility] HospitalKsqccetJTYCHJGLMJ5906-95-06 05:06:00 Test Item Value Reference Range Interpretation Comments Hct (test code = Hct) 27.0 36.0-48.0 [facility] HospitalSozrimkUBXBKHKHKI3974-17-81 05:06:00 Test Item Value Reference Range Interpretation Comments Monocytes # (test code 0.9 See_Comment [Aut omated message] The = Monocytes #) system which generated this result tra nsmitted reference range : <=0.8. The reference r fernando was not used to int erpret this result as normal/abnormal . [facility] HospitalWwwdejqMEZCELZQDR6163-66-20 05:06:00 Test Item Value Reference Range Interpretation Comments Eosinophils # (test code 0.1 See_Comment [A utomated message] The = Eosinophils #) system whic h generated this result tra nsmitted reference range : <=0.5. The reference r fernando was not used to int erpret this result as normal/abnormal . [facility] HospitalOrqgfwbRMPWLGNOVL0232-64-36 05:06:00 Test Item Value Reference Range Interpretation Comments Lymphocytes # (test code = Lymphocytes 1.6 1.0-5.5 #) [facility] HospitalFqqtgtrVZLWZUPIPD3941-48-25 05:06:00 Test Item Value Reference Range Interpretation Comments Segs-Bands # (test code = Segs-Bands #) 4.8 1.5-8.1 [facility] HospitalEvtqpqkFOIWBHWGOO2623-61-11 05:06:00 Test Item Value Reference Range Interpretation Comments Basophils (test code = 0.1 See_Comment [Aut omated message] The Basophils) system which ge nerated this result tra nsmitted reference range : <=1.0. The reference r fernando was not used to int erpret this result as normal/abnormal . [facility] HospitalPgdxxkbJIJTYBNPTW3839-15-10 05:06:00 Test Item Value Reference Range Interpretation Comments Monocytes (test code = Monocytes) 12.4 2.0-12.0 [facility] HospitalAuyqtepRHQNDZKUMU2950-10-07 05:06:00 Test Item Value Reference Range Interpretation Comments Eosinophils (test code = 0.8 See_Comment [A utomated message] The Eosinophils) system which ge nerated this result tra nsmitted reference range : <=4.0. The reference r fernando was not used to int erpret this result as normal/abnormal . [facility] HospitalOpgqvrkFQUPTNESLA6386-69-31 05:06:00 Test Item Value Reference Range Interpretation Comments Lymphocytes (test code = Lymphocytes) 21.4 20.0-40.0 [facility] HospitalIwvmyzlFLYZVKFRGK7477-17-14 05:06:00 Test Item Value Reference Range Interpretation Comments Segs (test code = Segs) 65.3 45.0-75.0 [facility]2018-05-30 05:06:00 Test Item Value Reference Range Interpretation Comments Ca Ion WB (test code = Ca Ion WB) 1.14 1.05-1.25 [facility] [id number] 05:06:00 Test Item Value Reference Range Interpretation Comments Ca Norm WB (test code = Ca Norm WB) 1.14 1.05-1.25 [facility] CenterLunagames [id number] 21:23:00 Test Item Value Reference Range Interpretation Comments Lactic Acid Lvl (test code = Lactic 1.7 0.5-2.2 Acid Lvl) [facility] CenterLunagames [id number] 15:19:00 Test Item Value Reference Range Interpretation Comments Procalcitonin Lvl (test no gt See_Comment [Au tomated message] code = Procalcitonin Lvl) e system which generated this result transmitted ref erence range: <=0.10. The reference range was not used to interpr et this result as normal/abnormal . [facility] CenterannBACTERIAL - [id number] 15:03:00 Test Item Value Reference Range Interpretation Comments MRSA by PCR (test Negative (02/06/18 10:03 code = MRSA by PCR) AM) [facility] CenterannCHEM [id number] 15:03:00 Test Item Value Reference Range Interpretation Comments Lactic Acid Lvl (test code = Lactic 2.1 0.5-2.2 Acid Lvl) [facility] CenterannCARDIAC [id number] 10:01:00 Test Item Value Reference Range Interpretation Comments Troponin-I (test code no gt See_Comment [Auto mated message] The = Troponin-I) system which g enerated this result transmit timur reference range : <=0.40. The reference r fernando was not used to interpr et this result as jasmyne l/abnormal. [facility] CenterDevverCARExpedit.usAC [id number] 10:01:00 Test Item Value Reference Range Interpretation Comments Troponin-T (test code no gt See_Comment [Auto mated message] The = Troponin-T) system which g enerated this result transmit timur reference range : <=0.100. The reference r fernando was not used to interpr et this result as jasmyne l/abnormal. [facility] CenterDevverCARExpedit.usAC [id number] 10:01:00 Test Item Value Reference Range Interpretation Comments Total CK (test code = Total CK) 188 12-191 [facility] CenterDevverCARExpedit.usAC LJQVYZX4026-08-09 10:01:00 Test Item Value Reference Range Interpretation Comments CK MB Index (test 1.2 1 See_Comment [Automate d message] The code = CK MB Index) system w [facility] generated this result transmit timur reference range : <=2.5. The reference range was not used to interpr et this result as jasmyne l/abnormal. [facility] CenterDevverCARDIAC [id number] 10:01:00 Test Item Value Reference Range Interpretation Comments CK MB (test code = CK MB) 2.3 0.5-3.6 [facility] CenterannPARATHYROID [id number] 06:28:00 Test Item Value Reference Range Interpretation Comments Ca Norm WB (test code = Ca Norm WB) 1.00 1.05-1.25 [facility] [employer]xannPARATHYROID [id number] 06:28:00 Test Item Value Reference Range Interpretation Comments Ca Ion WB (test code = Ca Ion WB) 0.99 1.05-1.25 [facility]ann[facility]ARD[facility] [id number] 05:16:00 Test Item Value Reference Range Interpretation Comments CK MB Index (test 1.5 1 See_Comment [Automate d message] The code = CK MB Index) system w [facility] generated this result transmit timur reference range : <=2.5. The reference range was not used to interpr et this result as jasmyne l/abnormal. [facility] [employer] [id number] 05:16:00 Test Item Value Reference Range Interpretation Comments CK MB (test code = CK MB) 1.4 0.5-3.6 [facility] [employer] [id number] 05:16:00 Test Item Value Reference Range Interpretation Comments Troponin-T (test code no gt See_Comment [Auto mated message] The = Troponin-T) system which g enerated this result transmit timur reference range : <=0.100. The reference r fernando was not used to interpr et this result as jasmyne l/abnormal. [facility] [employer] [id number] 05:16:00 Test Item Value Reference Range Interpretation Comments Troponin-I (test code no gt See_Comment [Auto mated message] The = Troponin-I) system which g enerated this result transmit timur reference range : <=0.40. The reference r fernando was not used to interpr et this result as jasmyne l/abnormal. [facility] [employer] [id number] 05:16:00 Test Item Value Reference Range Interpretation Comments Total CK (test code = Total CK) 94 12-191 [facility] [id number] 05:16:00 Test Item Value Reference Range Interpretation Comments Albumin Lvl (test code = Albumin Lvl) 3.2 3.5-5.0 [facility] [id number] 05:16:00 Test Item Value Reference Range Interpretation Comments B/C Ratio (test code = B/C Ratio) 14 1 6-25 [employer] [id number] 05:16:00 Test Item Value Reference Range Interpretation [...] Phosphorus (test code = Phosphorus) 2.1 2.5-4.5 [facility]YybcjraPEFJGAJYUN2894-13-16 05:16:00 Test Item Value Reference Range Interpretation Comments Estimated % Lysis Rapid 0.9 See_Comment [Au tomated message] The (test code = Estimated syste m which generated % Lysis Rapid) this result t ransmitted reference range : <=7.5. The reference r fernando was not used to int erpret this result as normal/abnormal . [facility] HospitalVtelzsvDOKHWLFQIS7545-61-29 05:16:00 Test Item Value Reference Range Interpretation Comments G-value Rapid (test code = G-value 11.7 5.0-11.6 Rapid) [facility] HospitalCjklckkIXUSUMFMRT5689-90-00 05:16:00 Test Item Value Reference Range Interpretation Comments K-time Rapid (test code = K-time 0.8 min 0.6-2.3 Rapid) [facility] HospitalMwwxfecQBMYYNRNFB3050-64-76 05:16:00 Test Item Value Reference Range Interpretation Comments Angle Rapid (test code = Angle 76 degrees 64-80 Rapid) [facility] HospitalEvfibmdDMLCANRHOH9235-95-86 05:16:00 Test Item Value Reference Range Interpretation Comments Max Amplitude Rapid (test code = Max 70 mm 52-71 Amplitude Rapid) [facility] HospitalTdvfzfwWXGZBVKRGO8568-59-28 05:16:00 Test Item Value Reference Range Interpretation Comments ACT (TEG) Rapid (test code = ACT (TEG) 121 s 86-118 Rapid) [facility] HospitalRibaqeqOEGPAZRJKN5932-32-78 05:16:00 Test Item Value Reference Range Interpretation Comments Split Point Rapid (test code = Split 0.4 min Point Rapid) [facility] HospitalVudicsrSAGUJAMZUH5700-42-16 05:16:00 Test Item Value Reference Range Interpretation Comments R-time Rapid (test code = R-time 0.8 min 0.4-0.7 Rapid) [facility] HospitalHazkbunAVMFMJDIWO3119-31-49 05:16:00 Test Item Value Reference Range Interpretation Comments INR (test code = INR) 1.14 1 0.85-1.17 [facility] HospitalRyzzgobPCNOEGXZTT5793-93-40 05:16:00 Test Item Value Reference Range Interpretation Comments PTT (test code = PTT) 46.9 s 22.9-35.8 [facility] HospitalUwuxypcJTNTBQHJRC5679-62-38 05:16:00 Test Item Value Reference Range Interpretation Comments PT (test code = PT) 14.6 s 12.0-14.7 [facility] HospitalTfptapyGJKKUWEZLC5228-59-76 01:34:00 Test Item Value Reference Range Interpretation Comments Plav Effect Plt (test code = Plav 220 Effect Plt) [facility] HospitalUwbqegfEEZCVKJYGJ4390-20-47 01:34:00 Test Item Value Reference Range Interpretation Comments ASA Effect Plt (test code = ASA Effect 540 Plt) [facility] [employer] [id number] 01:29:00 Test Item Value Reference Range Interpretation Comments CK MB (test code = CK MB) 0.9 0.5-3.6 [facility] SidmanCARAC [id number] 01:29:00 Test Item Value Reference Range Interpretation Comments CK MB Index (test 1.2 1 See_Comment [Automate d message] The code = CK MB Index) system w [facility] generated this result transmit timur reference range : <=2.5. The reference range was not used to interpr et this result as jasmyne l/abnormal. [facility] CenterEmerGeo SolutionsAC [id number] 01:29:00 Test Item Value Reference Range Interpretation Comments Troponin-T (test code no gt See_Comment [Auto mated message] The = Troponin-T) system which g enerated this result transmit timur reference range : <=0.100. The reference r fernando was not used to interpr et this result as jasmyne l/abnormal. [facility] [employer] [id number] 01:29:00 Test Item Value Reference Range Interpretation Comments Troponin-I (test code no gt See_Comment [Auto mated message] The = Troponin-I) system which g enerated this result transmit timur reference range : <=0.40. The reference r fernando was not used to interpr et this result as jasmyne l/abnormal. [facility] [employer] [id number] 01:29:00 Test Item Value Reference Range Interpretation Comments Total CK (test code = Total CK) 77 12-191 [facility] [facility] [id number] 01:29:00 Test Item Value Reference Range Interpretation Comments Lactic Acid Lvl (test code = Lactic 1.6 0.5-2.2 Acid Lvl) [facility] [id number] 01:29:00 Test Item Value Reference Range Interpretation Comments Osmolality (test code = Osmolality) 273 280-300 [facility] [employer]UR[employer] AND [id number] 01:29:00 Test Item Value Reference Range Interpretation Comments UA Sq Epi (test code = UA Sq Epi) None Seen [facility]xannURINE AND [id number] 01:29:00 Test Item Value Reference Range Interpretation Comments UA Urobilinogen (test code = UA <=1.0 mg/dL 0.1-1.0 Urobilinogen) [facility] AND [id number] 01:29:00 Test Item Value Reference Range Interpretation Comments UA Color (test code = Light Yellow UA Color) *NA*(02/05/18 8:29 PM) [facility] AND [id number] 01:29:00 Test Item Value Reference Range Interpretation Comments UA Spec Grav (test code = UA Spec 1.010 1 Grav) [facility] AND [id number] 01:29:00 Test Item Value Reference Range Interpretation Comments UA pH (test code = UA pH) 7.5 1 5.0-8.0 [facility] AND [id number] 01:29:00 Test Item Value Reference Range Interpretation Comments UA Turbidity (test code Slight *ABN*(02/05/18 = UA Turbidity) 8:29 PM) [facility] AND [id number] 01:29:00 Test Item Value Reference Range Interpretation Comments UA Glucose (test code = UA Glucose) 300 mg/dL [facility] AND [id number] 01:29:00 Test Item Value Reference Range Interpretation Comments UA Protein (test code = UA Protein) 100 mg/dL [facility] AND [id number] 01:29:00 Test Item Value Reference Range Interpretation Comments UA Ketones (test code = UA Ketones) 20 mg/dL [facility] AND [id number] 01:29:00 Test Item Value Reference Range Interpretation Comments UA Nitrite (test code Negative (02/05/18 8:29 = UA Nitrite) PM) [facility] AND [id number] 01:29:00 Test Item Value Reference Range Interpretation Comments UA WBC (test code = 1 See_Comment [Automa timur message] The UA WBC) system which ge nerated this result transmit timur reference range : <=5. The reference range was not used to interpr et this result as jasmyne l/abnormal. [facility] AND [id number] 01:29:00 Test Item Value Reference Range Interpretation Comments UA Leuk Est (test Negative (02/05/18 8:29 code = UA Leuk Est) PM) [facility] AND [id number] 01:29:00 Test Item Value Reference Range Interpretation Comments UA RBC (test code = 3 See_Comment [Automa timur message] The UA RBC) system which ge nerated this result transmit timur reference range : <=2. The reference range was not used to interpr et this result as jasmyne l/abnormal. [facility] AND [id number] 01:29:00 Test Item Value Reference Range Interpretation Comments UA Amorph Aliya (test code = UA Few /HPF Amorph Aliya) [facility] AND [id number] 01:29:00 Test Item Value Reference Range Interpretation Comments UA Mucus (test code = UA Mucus) Few /LPF [facility] AND [id number] 01:29:00 Test Item Value Reference Range Interpretation Comments UA Blood (test code = Negative (02/05/18 8:29 UA Blood) PM) [facility] AND [id number] 01:29:00 Test Item Value Reference Range Interpretation Comments UA Bili (test code = Negative *NA*(02/05/18 UA Bili) 8:29 PM) [facility] [id number] 01:29:00 Test Item Value Reference Range Interpretation Comments U Osmolality (test code = U Osmolality) 477 300-800 [facility]2018-05-29 01:29:00 Test Item Value Reference Range Interpretation Comments U Sodium (test code = U Sodium) 123 [facility] BANK [id number] 01:25:00 Test Item Value Reference Range Interpretation Comments FFP product (test code Product available = FFP product) (02/05/18 8:25 PM) [facility] HospitalPjgvvjeXKLTJFCXNK5481-98-82 23:04:00 Test Item Value Reference Range Interpretation Comments ACT (TEG) Rapid (test code = ACT (TEG) 144 s 86-118 Rapid) [facility] HospitalLyfmxikSHNGSEJFLC4516-34-09 23:04:00 Test Item Value Reference Range Interpretation Comments Split Point Rapid (test code = Split 0.7 min Point Rapid) [facility] HospitalTmbkrenCRGBKCUIOG4134-33-50 23:04:00 Test Item Value Reference Range Interpretation Comments K-time Rapid (test code = K-time 0.9 min 0.6-2.3 Rapid) [facility] HospitalCrrjabvLUAVBMHKFE0906-20-82 23:04:00 Test Item Value Reference Range Interpretation Comments R-time Rapid (test code = R-time 1.0 min 0.4-0.7 Rapid) [facility] HospitalKvvjhvqYZNJFBYEBP5091-37-54 23:04:00 Test Item Value Reference Range Interpretation Comments Max Amplitude Rapid (test code = Max 75 mm 52-71 Amplitude Rapid) [facility] HospitalMtbcoiiOWHEDOSWHC6441-17-54 23:04:00 Test Item Value Reference Range Interpretation Comments Angle Rapid (test code = Angle 76 degrees 64-80 Rapid) [facility] HospitalMnfdhyeFDKCJWCNIG7762-50-45 23:04:00 Test Item Value Reference Range Interpretation Comments G-value Rapid (test code = G-value 14.8 5.0-11.6 Rapid) [facility] HospitalFmsadrjBZVHUCXTKF0851-52-76 23:04:00 Test Item Value Reference Range Interpretation Comments Estimated % Lysis Rapid 0.0 See_Comment [Au tomated message] The (test code = Estimated syste m which generated % Lysis Rapid) this result t ransmitted reference range : <=7.5. The reference r fernando was not used to int erpret this result as normal/abnormal . [facility]erturboBOTZ [facility] [id number] 23:00:00 Test Item Value Reference Range Interpretation Comments ABO/Rh (test code = ABO/Rh) A POS [facility] [id number] 23:00:00 Test Item Value Reference Range Interpretation Comments Antibody Scrn (test Negative (02/05/18 6:00 code = Antibody Scrn) PM) [facility]
--- NOTE | 2023-01-21 20:50 | RAD REPORT ---
EXAM DESCRIPTION: CT - Head Brain Wo Cont - 01/21/2023 8:41 pm CLINICAL HISTORY: HEADACHE COMPARISON: <Comparisons> TECHNIQUE: All CT scans are performed using dose optimization technique as appropriate and may inclu de automated exposure control or mA/KV adjustment according to patient size. FINDINGS: No intracranial hemorrhage, hydrocephalus or extra-axial fluid collection.No areas of brai n edema or evidence of midline shift. Mild chronic small vessel ischemic changes. Remote right basal ganglia lacunar infarcts. Cerebral atrophy. The paranasal sinuses and mastoids are clear. The calvarium is intact. Right frontal calvarial cranio steev IMPRESSION: No acute intracranial abnormality.
[2023-01-21 21:01] LABS: Absolute Lymphocytes (CBC) 2.5 K/uL (0.7-4.9); Hematocrit 36.5 % (36.0-45.0); Lymphocytes % 38.6 % (15.3-44.8); MCV 85.5 fL (80-100); MPV 8.1 fL (7.6-11.3); RBC Red Blood Cell Count 4.27 M/uL (3.86-4.86)
[2023-01-21 21:18] LABS: Magnesium 1.6 mg/dL (1.6-2.4); Potassium 3.5 mEq/L (3.5-5.1)
[2023-01-21] MEDS ORDERED: KETOROLAC 30 MG/ML INJ ONE (21:42)
--- NOTE | 2023-01-21 21:51 | ER ---
Nurse's Notes [facility] Name: Skylar Grossman Age: 87 yrs Sex: Female : 1935 Arrival Date: 01/21/2023 Time: 20:12 Bed 5 Private MD: Diagnosis: Cephalgia;Elevated blood pressure reading;Medication non-compliance Presentation: 01/21 20:33 Chief complaint: Patient states: left side headache pain of 4,onset 2 hours ago. pf1 Patient stated did not take her BP medication today. 20:33 Coronavirus screen: Vaccine status: Patient reports receiving the 2nd dose of the covid pf1 vaccine. 3 doses Client denies travel out of the [place] in the last 14 days. At this time, the client does not indicate any symptoms associated with coronavirus-19. Ebola Screen: Patient negative for fever greater than or equal to 101.5 degrees Fahrenheit, and additional compatible Ebola Virus Disease symptoms. Initial Sepsis Screen: Does the patient meet any 2 criteria? No. Patient's initial sepsis screen is negative. Does the patient have a suspected source of infection? No. Patient's initial sepsis screen is negative. Risk Assessment: Do you want to hurt yourself or someone else? Patient reports no desire to harm self or others. Onset of symptoms was January 21, 2023. 20:33 Acuity: FARIDA 3 pf1 20:55 Method Of Arrival: EMS: [facility] pf1 Historical: - Allergies: 20:55 Codeine (Upset stomach); vc1 20:55 meperidine HCl; vc1 20:55 Morphine; vc1 - Home Meds: 20:55 gabapentin 300 mg oral capsule 3 times per day [Active]; metoclopram 5 mg every 4 hours vc1 [Active]; hydralazine 100 mg Oral tablet 3 times per day [Active]; irbesartan 300 mg oral tablet daily [Active]; amlodipine 10 mg tablet daily [Active]; atorvastatin 10 mg oral tablet every day at bedtime [Active]; - PMHx: 20:55 Cardiac pacemaker in situ; CVA; Dementia; Depression; Diabetes - IDDM; GERD; High vc1 Cholesterol; Hypercholesterolemia; Hypertension; Hypertensive disorder; - PSHx: 20:55 Appendectomy; Cholecystectomy; Total abdominal hysterectomy; vc1 - Immunization history:: Client reports receiving the 2nd dose of the Covid vaccine. - Social history:: Smoking status: Patient denies any tobacco usage or history of. Screenin:59 [facility] ED Fall Risk Assessment (Adult) History of falling in the last 3 months, pf1 including since admission No falls in past 3 months (0 pts) Confusion or Disorientation No (0 pts) Intoxicated or Sedated No (0 pts) Impaired Gait Yes (1 pt) Mobility Assist Device Used Yes (1 pt) Altered Elimination Yes (1 pt) Score/Fall Risk Level 3 or more points = High Risk Oriented to surroundings, Maintained a safe environment, Educated pt \T\ family on fall prevention, incl call for assistance when getting out of bed, Assessed \T\ reinforced patient's understanding of fall precautions, Provided non-skid footwear, Hourly rounding (assess needs \T\ fall precautionary measures) done, Used ambulatory aids as needed (educated on \T\ assisted with), Used gait belt as appropriate Remained w/in arm's length of patient and in sight while toileting, Offered frequent toileting (1:1 observation), Remained with patient while ambulating. Abuse screen: Denies threats or abuse. Nutritional screening: No deficits noted. Tuberculosis screening: No symptoms or risk factors identified. Assessment: 20:45 General: Appears in no apparent distress. uncomfortable, well groomed, well developed, pf1 Behavior is calm, cooperative, appropriate for age, quiet. 20:45 Pain: Complains of pain in left side headache pain of 4 Pain currently is 4 out of 10 pf1 on a pain scale. Neuro: Level of Consciousness is awake, alert, obeys commands, Oriented to person, place, time, situation, Reports headache in left. Cardiovascular: Capillary refill < 3 seconds Patient's skin is warm and dry. Respiratory: No deficits noted. Airway is patent Trachea midline Respiratory effort is even, unlabored, Respiratory pattern is regular, symmetrical. GI: No deficits noted. No signs and/or symptoms were reported involving the gastrointestinal system. : No deficits noted. No signs and/or symptoms were reported regarding the genitourinary system. EENT: No deficits noted. No signs and/or symptoms were reported regarding the EENT system. Derm: No deficits noted. No signs and/or symptoms reported regarding the dermatologic system. Musculoskeletal: No deficits noted. No signs and/or symptoms reported regarding the musculoskeletal system. Circulation, motion, and sensation intact. Capillary refill < 3 seconds, Range of motion:. 21:39 Reassessment: Patient appears in no apparent distress at this time. No changes from pf1 previously documented assessment. Patient and/or family updated on plan of care and expected duration. Pain level reassessed. Patient is alert, oriented x 3, equal unlabored respirations, skin warm/dry/pink. Patient states symptoms have not improved. 22:15 General: Yellow Cab service stated ETA 20-30 minutes.. pf1 Vital Signs: 20:33 BP 191 / 109; Pulse 89; Resp 18; Temp 98.4; Pulse Ox 97% on R/A; Weight 68.04 kg; pf1 Height 5 ft. 4 in. ; Pain 4/10; 21:09 BP 180 / 100; Pulse 90; Resp 18; Pulse Ox 95% on R/A; pf1 22:00 BP 156 / 106; Pulse 95; Resp 22; Pulse Ox 96% ; vc1 20:33 Body Mass Index 25.75 (68.04 kg, 162.56 cm) pf1 20:33 Pain Scale: Adult pf1 ED Course: 20:24 Patient arrived in ED. la1 20:24 Rita Taveras MD is Attending Physician. sd2 20:43 CT Head Brain wo Cont In Process Unspecified. EDMS 20:50 No provider procedures requiring assistance completed. Inserted saline lock: 22 gauge pf1 in right forearm, using aseptic technique. Blood collected. 20:50 Patient has correct armband on for positive identification. Bed in low position. Call pf1 light in reach. Side rails up X2. 20:58 Triage completed. pf1 21:00 Magnesium Sent. pf1 21:00 BMP Sent. pf1 21:00 CBC with Diff Sent. pf1 21:39 Arm band placed on left wrist. vc1 21:50 Edwardo Angel MD is Referral Physician. sd2 22:29 Lakisha Garcia, JOSE EDUARDO is Primary Nurse. vc1 22:30 IV discontinued, intact, bleeding controlled, No redness/swelling at site. Pressure pf1 dressing applied. Administered Medications: 20:27 CANCELLED (Physician Discretion): Ketorolac IVP 10 mg 10 mg IVP once sd2 21:35 Drug: Ketorolac IVP 10 mg 10 mg Route: IVP; Site: right forearm; pf1 22:31 Follow up: Response: No adverse reaction; Marked relief of symptoms pf1 21:54 Drug: hydrALAZINE IVP 10 mg Route: IVP; Site: right forearm; pf1 22:31 Follow up: Response: No adverse reaction; Marked relief of symptoms pf1 Medication: 21:39 VIS not applicable for this client. vc1 Outcome: 21:50 Discharge ordered by . sd2 22:32 Discharged to home via wheelchair, awaiting for yellow cab to arrived from [facility] pf1 22:32 Condition: improved 22:32 Discharge instructions given to patient, Instructed on discharge instructions, follow up and referral plans. Demonstrated understanding of instructions, follow-up care. 22:32 Patient left the ED. pf1 Signatures: Dispatcher [employer] EDMS Chauncey Villarreal, APPLICATION PACKAGING CONSULTANT-C APPLICATION PACKAGING CONSULTANT-Cla1 Lakisha Garcia RN RN vc1 Rita Taveras MD MD sd2 Sadie mckenzie RN RN pf1 Corrections: (The following items were deleted from the chart) 20:58 20:55 Chief complaint: Patient states: left side headache pain of 4,onset 2 hours ago. pf1 Patient stated did not take her BP medication today. pf1 21:39 21:39 Arm band placed on right wrist. vc1 vc1
--- NOTE | 2023-01-21 21:51 | EDPHYS ---
Physician Documentation [facility] Name: Skylar Grossman Age: 87 yrs Sex: Female : 1935 Arrival Date: 01/21/2023 Time: 20:12 Bed 5 Private MD: STACY Physician Rita Taveras HPI: 01/21 20:29 This 87 yrs old Female presents to ER via Unassigned with complaints of head pain. sd2 20:29 87-year-old female presents via EMS with chief complaint of left-sided head pain that sd2 started this afternoon. She states it has been intermittent in nature but became worse when she got home and felt like a sharp shocking like pain in her left and right parietal lobe areas. She reports that she was dropped and had an injury to her school about a year ago and since then has had these intermittent sensations but this time the sensation would not go away on its own. She did take 3 Tylenol prior to arrival and feels as if her pain is starting to subside. She denies any changes in vision, numbness or weakness of the extremities or difficulty speaking. She is otherwise at her mental baseline.. Historical: - Allergies: 20:55 Codeine (Upset stomach); vc1 20:55 meperidine HCl; vc1 20:55 Morphine; vc1 - Home Meds: 20:55 gabapentin 300 mg oral capsule 3 times per day [Active]; metoclopram 5 mg every 4 hours vc1 [Active]; hydralazine 100 mg Oral tablet 3 times per day [Active]; irbesartan 300 mg oral tablet daily [Active]; amlodipine 10 mg tablet daily [Active]; atorvastatin 10 mg oral tablet every day at bedtime [Active]; - PMHx: 20:55 Cardiac pacemaker in situ; CVA; Dementia; Depression; Diabetes - IDDM; GERD; High vc1 Cholesterol; Hypercholesterolemia; Hypertension; Hypertensive disorder; - PSHx: 20:55 Appendectomy; Cholecystectomy; Total abdominal hysterectomy; vc1 - Immunization history:: Client reports receiving the 2nd dose of the Covid vaccine. - Social history:: Smoking status: Patient denies any tobacco usage or history of. ROS: 20:29 Constitutional: Negative for fever, chills, and weight loss, Eyes: Negative for injury, sd2 pain, redness, and discharge, Neck: Negative for injury, pain, and swelling, Cardiovascular: Negative for chest pain, palpitations, and edema, Respiratory: Negative for shortness of breath, cough, wheezing. Abdomen/GI: Negative for abdominal pain, nausea, vomiting, diarrhea. MS/Extremity: Negative for injury and deformity, Skin: Negative for injury, rash, and discoloration, Neuro: Positive for headache, Negative for numbness and tingling. Exam: 20:29 Constitutional: This is a well developed, well nourished patient who is awake, alert, sd2 and in no acute distress. Head/Face: Normocephalic, atraumatic. Eyes: EOMI, normal conjunctiva bilaterally Chest/axilla: Normal chest wall appearance and motion. Nontender with no deformity. Cardiovascular: Regular rate and rhythm with a normal S1 and S2. No gallops, murmurs, or rubs. 2+ distal pulses. Respiratory: Lungs have equal breath sounds bilaterally, clear to auscultation and percussion. No rales, rhonchi or wheezes noted. No increased work of breathing, no retractions or nasal flaring. Abdomen/GI: Soft, non-tender, with normal bowel sounds. No guarding or rebound. No evidence of tenderness throughout. Skin: Warm, dry with normal turgor. Normal color with no rashes, no lesions, and no evidence of cellulitis. MS/ Extremity: Pulses equal, no cyanosis. Neurovascular intact. Full, normal range of motion. Ambulatory without difficulty. Neuro: Awake and alert, GCS 15, oriented to person, place, time, and situation. Cranial nerves II-XII grossly intact. Motor strength 5/5 in all extremities. Sensory grossly intact. Cerebellar exam normal. Psych: Awake, alert, with orientation to person, place and time. Behavior, mood, and affect are within normal limits. Vital Signs: 20:33 BP 191 / 109; Pulse 89; Resp 18; Temp 98.4; Pulse Ox 97% on R/A; Weight 68.04 kg; pf1 Height 5 ft. 4 in. ; Pain 4/10; 21:09 BP 180 / 100; Pulse 90; Resp 18; Pulse Ox 95% on R/A; pf1 22:00 BP 156 / 106; Pulse 95; Resp 22; Pulse Ox 96% ; vc1 20:33 Body Mass Index 25.75 (68.04 kg, 162.56 cm) pf1 20:33 Pain Scale: Adult pf1 MDM: 20:24 Patient medically screened. sd2 20:29 Differential Diagnosis Differential diagnosis includes but is not limited to: Tension sd2 headache, migraine headache, intracranial hemorrhage, dehydration, electrolyte abnormality, musculoskeletal, meningitis among others. Data reviewed: vital signs, nurses notes, EMS record, old medical records, Recent inpatient stay and hospitalization records lab test result(s), radiologic studies, CT scan. Historians other than the Patient: EMS: provides initial report. External Records Reviewed: Inpatient record: Recent hospitalization discharge summary. Care significantly affected by the following chronic conditions: Hypertension. 21:46 Consideration of Admission/Observation Escalation of care including sd2 admission/observation considered. Not indicated at this time as symptoms improved, workup negative and no neuro deficits. I considered the following discharge prescriptions or medication management in the emergency department Medications were administered in the Emergency Department. See MAR. Independent interpretation of the following test(s) in the Emergency Department CT Scan: My interpretation is no bleed. Test considered but Not performed: Other Details CTA not indicated with patient's recent headache and not consistent with thunderclap [place], regular CT sufficient. Care significantly affected by the following Social Determinants of Health: Poor access to transportation. Counseling: I had a detailed discussion with the patient and/or guardian regarding: the historical points, exam findings, and any diagnostic results supporting the discharge/admit diagnosis, lab results, radiology results, the need for outpatient follow up, to return to the emergency department if symptoms worsen or persist or if there are any questions or concerns that arise at home. Response to treatment: the patient's symptoms have markedly improved after treatment. Special discussion: I discussed with the patient/guardian in detail that at this point there is no indication for admission to the hospital. It is understood, however, that if the symptoms persist or worsen the patient needs to return immediately for re-evaluation. ED course: All labs and imaging results reviewed by myself and discussed with the patient. She is requesting discharge home at this time and states that her headache is improved. She also reports that she does not believe her sister who manages her medications has been giving them all to her regularly as she believes that she is taking too much medication. She is unsure if she received her BP medication today as well so hydralazine given in ER with downtrending. This may also be leading to her headache symptoms. She states that she will take back over giving herself her own medications to ensure she is getting everything she needs and follow-up with Dr. Angel as well who is her primary care provider regarding her current medications. She verbalizes understanding of discharge plan and strict return precautions at this time.. 01/21 20:25 Order name: CBC with Diff; Complete Time: 21:35 sd2 01/21 20:25 Order name: BMP; Complete Time: 21:35 sd2 01/21 20:25 Order name: Magnesium; Complete Time: 21:35 sd2 01/21 20:25 Order name: CT Head Brain wo Cont; Complete Time: 20:52 sd2 Administered Medications: 20:27 CANCELLED (Physician Discretion): Ketorolac IVP 10 mg 10 mg IVP once sd2 21:35 Drug: Ketorolac IVP 10 mg 10 mg Route: IVP; Site: right forearm; pf1 22:31 Follow up: Response: No adverse reaction; Marked relief of symptoms pf1 21:54 Drug: hydrALAZINE IVP 10 mg Route: IVP; Site: right forearm; pf1 22:31 Follow up: Response: No adverse reaction; Marked relief of symptoms pf1 Disposition Summary: 01/21/23 21:50 Discharge Ordered Location: Home sd2 Problem: an acute exacerbation sd2 Symptoms: have improved sd2 Condition: Stable sd2 Diagnosis - Cephalgia sd2 - Elevated blood pressure reading sd2 - Medication non-compliance sd2 Followup: sd2 - With: Edwardo Angel MD - When: 2 - 3 days - Reason: Recheck today's complaints, Continuance of care, Re-evaluation by your physician Discharge Instructions: - Discharge Summary Sheet sd2 - General Headache Without Cause sd2 - Hypertension, Adult sd2 - Managing Your Hypertension sd2 Forms: - Medication Reconciliation Form sd2 - Thank You Letter sd2 - Antibiotic Education sd2 - Prescription Opioid Use sd2 Signatures: Dispatcher [employer] EDMS Lakisha Garcia RN RN vc1 Rita Taveras MD MD sd2 Sadie mckenzie RN RN pf1 Corrections: (The following items were deleted from the chart) 20:27 20:26 Ketorolac IVP 10 mg 10 mg IVP once ordered. sd2 sd2 21:49 21:46 ED course: All labs and imaging results reviewed by myself and discussed with the sd2 patient. She is requesting discharge home at this time and states that her headache is improved. She also reports that she does not believe her sister who manages her medications has been giving them all to her regularly as she believes that she is taking too much medication. This may also be leading to her headache symptoms. She states that she will take back over giving herself her own medications to ensure she is getting everything she needs and follow-up with Dr. Angel as well who is her primary care provider regarding her current medications. She verbalizes understanding of discharge plan and strict return precautions at this time.. sd2
[2023-01-21] MEDS ORDERED: HYDRALAZINE HCL 20 MG/ML VIAL ONE (21:59)
[2023-01-21 22:55] VITALS: TEMP 98.4
[2023-01-21 22:59] VITALS: BP 156/106; O2SAT 96
== END 2023-01-21 22:32 | disposition home or self-care (01) ==
LOC: ER 20:12
DX: R51.9 Headache, unspecified (principal); I10 Essential (primary) hypertension; Z91.148 Patient's other noncompliance with medication regimen for other reason; Z95.0 Presence of cardiac pacemaker; E11.9 Type 2 diabetes mellitus without complications; F03.90 Unspecified dementia, unspecified severity, without behavioral disturbance, psychotic disturbance, mood disturbance, and anxiety; Z88.5 Allergy status to narcotic agent; Z88.8 Allergy status to other drugs, medicaments and biological substances
CPT/HCPCS: 85025; 80048; 36415; 83735; 70450; 96375; 96374; 99284; J0360

== ENCOUNTER 2023-01-26 02:42 | Emergency (ER) | payer OTHER ==
--- OUTSIDE RECORDS SUMMARY | 2023-01-26 02:58 | XMS REPORT | Continuity of Care Document ---
:1935 Author Organization [facility] t Address [address] [place] [address] Care Team Providers Name Role Phone No MD, Pcp [facility] Primary Care Physician Unavailable JUAQUIN MCINTYRE Attending Clinician Unavailable HARINI BETANCOURT Attending Clinician Unavailable HARINI BETANCOURT Attending Clinician Unavailable GILBERT WINSTON Attending Clinician Unavailable Inez Hylton MD Attending Clinician INEZ HYLTON Attending Clinician Unavailable Doctor Unassigned, [place] Attending Clinician Unavailable JARVIS MILLIGAN Attending Clinician Unavailable Liza Zarco Attending Clinician Raul Rosen MD Attending Clinician Jarvis Milligan MD Attending Clinician CASSIUS PINK Attending Clinician Unavailable DAYAMI LOVE Attending Clinician Unavailable Dayami Whitman Attending Clinician [phone] Pob, [facility] Attending Clinician [...] Unavailable Pavan FIERROP, Jud Attending Clinician JUD BROWNE Attending Clinician Unavailable JUAQUIN MCINTYRE Admitting Clinician [...] Date S dianelys MEDICARE PART A AND [id number] 1998 B 00:00:00 MEDICARE A B [id number] 1998 00:00:00 [facility] [id number] 2019 HEALTHCARE 00:00:00 MEDICARE PART A \\T\\ [id number] 1998 B 00:00:00 Problems Condition Condition Condition Status Onset Resolution Last Treating Co mments Source Name Details Category Date Date Treatment Clinician Date Hyponatrem Hyponatrem Disease Recurre Univers ia ia nce 2-14 ity of 00:00: [place] [facility] 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 TSDH TSDH Diagnosis Active 2022-10-11 Mem oria Active 10-10 12:26:00 l 10/10/2022 00:00: Jax sosa [address] Sick sinus Sick sinus Disease Active [...] Added automatic ally from request for surgery [id number] Syncope Syncope Disease Active Overview: Univ ers and and 09-13 Formattin ity of collapse collapse 00:00: g of this [place] as 00 note Medical might be Branch different from the original. 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 Added automatic ally from request for surgery [id number] Acute Acute Disease Active [facility] encephalop 7-16 [facility] k[facility] athy athy 00:[facility]: [facility] Center Vasovagal Vasovagal Disease Active [facility] Colitis Colitis Disease [facility] Syncope Syncope Disease Active [facility]: Medical 00 [place] SDH SDH Diagnosis Active 2018-02-26 Mem oria Active 02-18 12:06:00 l 02/18/2018 00:00: Jax sosa [address] FALL/ FALL/ Diagnosis Active 2018-02-19 Mem oria INTRAVENTR INTRAVENTR 6- 04:32:00 l ICULAR ICULAR 00:00: Austyn HEMORRHAGE HEMORRHAGE 00 VS SDH VS SDH Active 02/18/2018 [facility] ACUTE SDH ACUTE SDH Diagnosis Active 2018-02-16 Memoria Active 02-05 22:05:00 l 02/05/2018 00:00: Jax sosa [address] Pain in Pain in Disease Active Overview: Univ ers limb limb 12-04 Formattin ity of 00:00: g of this [place] 00 note Medical might be Branch different [...] of and and 00:00: g of this [place] radiculiti radiculiti 00 note Me dical s, s, might be Branch unspecifie unspecifie different d d from the original. Cervical radiculop athy Osteoarthr Osteoarthr Disease Active Overview : Univers itis itis 12-04 Formattin ity of 00:00: g of this [place] 00 note Medical might be Branch different from the original. ICD10 Diagnosis Term Bag Bundler Utility Esophageal Esophageal Disease Active 2005-09 U nivers reflux reflux 1-15 ity of 00:00: [place] 00 Medical Branch Diabetic Diabetic Disease Active 2005-09 Overview: Un teo polyneurop polyneurop 1-15 Formattin ity of athy athy 00:00: g of this [place] 00 note Medical might be Branch different from the original. ICD10 Diagnosis Term Bag Bundler Utility Chronic Chronic Disease Active 2005-09 Univers depressive depressive 1-15 it y of personalit personalit 00:00: [place] y disorder y disorder 00 Me dical Branch HLD HLD Disease Active 2005-09 Overview: Univer s (hyperlipi (hyperlipi 1-15 Formattin ity of demia) demia) 00:00: g of this [place] 00 note Medical might be Branch different from the original. 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 ICD10 Diagnosis Term Bag Bundler Utility Hypertensi Hypertens Problem Resolve 2018-10-22 Memoria ve sudeep d 15:27:05 l disorder, disorder, Herm roxanne systemic systemic arterial arterial (disorder) (disorder) Resolved Problem 10/22/2018 [facility] NONTRAUMAT NONTRAUMA Diagnosis Active 2018-02-16 [facility] IC ACUTE TIC ACUTE 22:05:00 l SUBDURAL SUBDURAL Jax n HEMORRHAGE HEMORRHAGE Active [facility] NONTRAUMAT NONTRAUMA Diagnosis Active 2018-02-26 [facility] IC CHRONIC TIC 12:06:00 l SUBDURAL CHRONIC Austyn HEMORRHAGE SUBDURAL HEMORRHAGE Active [facility] FALL FALL Diagnosis Active 2018-02-19 Mem oria Active 03:11:00 l [facility] TRAUM TRAUM Diagnosis Active 2022-10-11 Fl moria SUBDR HEM SUBDR HEM 12:26:00 l WITH LOC WITH LOC Jax n STATUS STATUS UNKNOWN, UNKNOWN, Active [facility] Allergies, Adverse Reactions, Alerts Allergy Allergy [...] NE HCL INGREDI 3-10 ity of 00:00: [place] 00 Medical Branch Meperidi Propensi Active Unknown [...] Demerol Demerol Active Memoria HCl HCl l [place] Family History Family Member Diagnosis Comments Start Date Stop Date Source Natural father High blood pressure C HI [facility] Social History Social Habit Start Date Stop Date Quantity Comments Source History SDOH Social Unive rsity of Connections [facility] Med ical Together Branch History SDOH Social Unive rsity of Connections [facility] Medical Branch History SDOH Social Unive rsity of Connections [place] [facility] Membership Branch History SDOH Social Unive rsity of Connections [place] [facility] Meetings Branch History SDOH [facility] [...] University o f Physical Activity 00:00:00 00:00:00 [facility] edical MPS Branch History SDOH 2022-10-25 2022-10-25 5 University o f Financial 00:00:00 00:00:00 [place] [facility] History SDOH Food 2022-10-25 2022-10-25 1 Univers ity of Worry 00:00:00 00:00:00 [place] [facility] History SDOH Food 2022-10-25 2022-10-25 1 Univers ity of Scarcity 00:00:00 00:00:00 [place] [facility] [place] Tobacco use and 2022-08-03 2022-08-03 Smokeless Universit y of exposure 00:00:00 00:00:00 tobacco non-user [facility] dical Branch History [facility] 2020-03-27 2020-03-[address] [facility] Alcohol Frequency 00:00:00 00:00:00 [facility] Alcohol intake 2020-03-26 2020-03-[address] [facility] es 00:00:00 00:00:00 non-drinker of Medical nter alcohol (finding) Social History 2018-02-19 2018-02-19 [facility] 11:13:34 11:13:34 Sex Assigned At [address] Corina kes 00:00:00 00:00:00 [facility] Smoking Status Start Date Stop Date Source Never smoked tobacco [facility] Medications Ordered Filled Start Stop Current Ordering Indication Dosage Frequency Signature Comments Components Source Medication Medication Date Date Medication? Clinician (SIG) Name Name amLODIPine 2022- Yes 5mg Take 5 mg [place] te[place] 5 mg tablet 2-21 by mouth ity of 17:33: at [place] [address] bedtime. Medical Branch aspirin 81 2022-0 Yes 81mg Take 81 mg U nivers mg EC 2-21 by mouth ity of tablet 17:33: in the [place] [address] morning. Medical Branch lisinopriL 2022-0 Yes 20mg Take 20 mg U nivers 20 mg 2-21 by mouth ity of tablet 17:33: in the [place] [address] morning Medical and 20 mg Branch in the evening. metFORMIN 2022-0 Yes 500mg Take 500 Uni vers 500 mg 2-21 mg by ity of tablet 17:33: mouth in [place] [address] the Medical morning Branch and 500 mg in the evening. Take with meals. pantoprazol 2023-0 Yes 40mg Take 40 mg Univers e 2-21 by mouth ity of (PROTONIX) 17:33: in the [place] 20 mg EC 53 morning. Medical tablet Branch tamsulosin 2022-0 Yes Take by [facility] ers (FLOMAX) 2-21 mouth ity of 0.4 mg 24 17:33: daily. [place] hr capsule 53 Medical Branch FLUoxetine 2022-0 Yes 20mg Take 20 mg U nivers 20 mg 2-21 by mouth ity of capsule 17:33: in the [place] [address] morning. Medical Branch gabapentin 2022-0 Yes 300mg Take 300 Un teo 300 mg 2-21 mg by ity of capsule 17:33: mouth 2 [place] 53 (two) Medical times Branch daily as needed. memantine 3-0 Yes 10mg Take 10 mg Un teo 10 mg 2-21 by mouth ity of tablet 17:33: in the [place] [address] morning Medical and 10 mg Branch in the evening. simvastatin 3-0 Yes 20mg Take 20 mg Univers 20 mg 2-21 by mouth ity of tablet 17:33: at [place] [address] bedtime. Medical Branch amLODIPine 2022-0 Yes 5mg Take 5 mg Un toe 5 mg tablet 2-21 by mouth ity of 17:33: at [place] [address] bedtime. Medical Branch aspirin 81 2022-0 Yes 81mg Take 81 mg U nivers mg EC 2-21 by mouth ity of tablet 17:33: in the [place] [address] morning. Medical Branch lisinopriL 2022-0 Yes 20mg Take 20 mg U nivers 20 mg 2-21 by mouth ity of tablet 17:33: in the [place] [address] morning Medical and 20 mg Branch in the evening. metFORMIN 3-0 Yes 500mg Take 500 Uni vers 500 mg 2-21 mg by ity of tablet 17:33: mouth in [place] 53 the Medical morning Branch and 500 mg in the evening. Take with meals. pantoprazol 3-0 Yes 40mg Take 40 mg Univers e 2-21 by mouth ity of (PROTONIX) 17:33: in the [place] 20 mg EC 53 morning. Medical tablet Branch tamsulosin 2022-0 Yes Take by [facility] ers (FLOMAX) 2-21 mouth ity of 0.4 mg 24 17:33: daily. [place] hr capsule 53 Medical Branch FLUoxetine 3-0 Yes 20mg Take 20 mg U nivers 20 mg 2-21 by mouth ity of capsule 17:33: in the [place] [address] morning. Medical Branch gabapentin 2022-0 Yes 300mg Take 300 Un teo 300 mg 2-21 mg by ity of capsule 17:33: mouth 2 [place] [address] (two) Medical times Branch daily as needed. memantine 3-0 Yes 10mg Take 10 mg Un teo 10 mg 2-21 by mouth ity of tablet 17:33: in the [place] [address] morning Medical and 10 mg Branch in the evening. simvastatin 3-0 Yes 20mg Take 20 mg Univers 20 mg 2-21 by mouth ity of tablet 17:33: at [place] [address] bedtime. Medical Branch amLODIPine 2022-0 Yes 5mg Take 5 mg Un teo 5 mg tablet 2-21 by mouth ity of 17:33: at [place] [address] bedtime. Medical Branch aspirin 81 2022-0 Yes 81mg Take 81 mg U nivers mg EC 2-21 by mouth ity of tablet 17:33: in the [place] [address] morning. Medical Branch lisinopriL 2022-0 Yes 20mg Take 20 mg U nivers 20 mg 2-21 by mouth ity of tablet 17:33: in the [place] [address] morning Medical and 20 mg Branch in the evening. metFORMIN 2022-0 Yes 500mg Take 500 Uni vers 500 mg 2-21 mg by ity of tablet 17:33: mouth in [place] [address] the Medical morning Branch and 500 mg in the evening. Take with meals. pantoprazol 2022-0 Yes 40mg Take 40 mg Univers e 2-21 by mouth ity of (PROTONIX) 17:33: in the [place] 20 mg EC morning. Medical tablet Branch tamsulosin 2022-0 Yes Take by [facility] ers (FLOMAX) 2-21 mouth ity of 0.4 mg 24 17:33: daily. [facility] capsule 53 Medical Branch FLUoxetine 2022-0 Yes 20mg Take 20 mg U nivers 20 mg 2-21 by mouth ity of capsule 17:33: in the [place] [address] morning. Medical Branch gabapentin 2022-0 Yes 300mg Take 300 Un teo 300 mg 2-21 mg by ity of capsule 17:33: mouth 2 [place] [address] (two) Medical times Branch daily as needed. memantine 3-0 Yes 10mg Take 10 mg Un teo 10 mg 2-21 by mouth ity of tablet 17:33: in the [place] [address] morning Medical and 10 mg Branch in the evening. simvastatin 2022-0 Yes 20mg Take 20 mg Univers 20 mg 2-21 by mouth ity of tablet 17:33: at [place] [address] bedtime. Medical Branch amLODIPine 2022-0 Yes 5mg Take 5 mg Un teo 5 mg tablet 2-21 by mouth ity of 17:33: at [place] [address] bedtime. Medical Branch aspirin 81 2022-0 Yes 81mg Take 81 mg U nivers mg EC 2-21 by mouth ity of tablet 17:33: in the [place] [address] morning. Medical Branch lisinopriL 2022-0 Yes 20mg Take 20 mg U nivers 20 mg 2-21 by mouth ity of tablet 17:33: in the [place] [address] morning Medical and 20 mg Branch in the evening. metFORMIN 2022-0 Yes 500mg Take 500 Uni vers 500 mg 2-21 mg by ity of tablet 17:33: mouth in [place] [address] the Medical morning Branch and 500 mg in the evening. Take with meals. pantoprazol 2022-0 Yes 40mg Take 40 mg Univers e 2-21 by mouth ity of (PROTONIX) 17:33: in the [place] 20 mg EC 53 morning. Medical tablet Branch tamsulosin 0 Yes Take by [facility] ers (FLOMAX) 2-21 mouth ity of 0.4 mg 24 17:33: daily. [place] hr capsule 53 Medical Branch FLUoxetine 2022-0 Yes 20mg Take 20 mg U nivers 20 mg 2-21 by mouth ity of capsule 17:33: in the [place] [address] morning. Medical Branch gabapentin 2022-0 Yes 300mg Take 300 Un teo 300 mg 2-21 mg by ity of capsule 17:33: mouth 2 [place] 53 (two) Medical times Branch daily as needed. memantine 2022-0 Yes 10mg Take 10 mg Un teo 10 mg 2-21 by mouth ity of tablet 17:33: in the [place] [address] morning Medical and 10 mg Branch in the evening. simvastatin 2022-0 Yes 20mg Take 20 mg Univers 20 mg 2-21 by mouth ity of tablet 17:33: at [place] [address] bedtime. Medical Branch levETIRAcet 2022-0 2023- No 250mg Take 250 Univers am (KEPPRA) 2-21 02-21 mg by ity of 250 mg 13:41: 00:00 mouth in [place] tablet 41 :00 the [facility] and 250 mg in the evening. levETIRAcet 2022- Yes [id number] 500mg Take 1 Univers am 500 mg 11-01 tablet by ity of tablet 00:00: 04:59 mouth in [place] 00 :00 the [facility] and 1 tablet in the evening. Do all this for 90 days. levETIRAcet 2022- Yes [id number] 500mg Take 1 Univers am 500 mg 11-01 tablet by ity of tablet 00:00: 04:59 mouth in [place] 00 :00 the [facility] and 1 tablet in the evening. Do all this for 90 days. levETIRAcet 2022- Yes [id number] 500mg Take 1 Univers am 500 mg 11-01 tablet by ity of tablet 00:00: 04:59 mouth in [place] 00 :00 the [facility] and 1 tablet in the evening. Do all this for 90 days. levETIRAcet 2022- Yes [id number] 500mg Take 1 Univers am 500 mg 11-01 tablet by ity of tablet 00:00: 04:59 mouth in [place] 00 :00 [facility] and 1 tablet in the evening. Do all this for 90 days. levETIRAcet Yes 500mg 500 mg, Un teo am (KEPPRA) 2-20 Oral, BID, it y of tablet 500 02:00: First dose [place] mg 00 on [facility] 10/30/22 at Branch 1999, Until Discontinu ed, Routine morpHINE ( Yes 2mg 2 mg, Slow Univers mg/mL) 2-17 IV Push, ity of injection 2 02:52: Q4HPRN, [place] as mg 02 Starting Medical on [facility] 10/27/22 at 2051, Until Discontinu ed, Routine, Pain (scale 7-10) heparin Yes 5000U 5,000 Univers (porcine) 2-16 Units, ity of injection 20:00: Subcutaneo [place] 5,000 Units 00 us, Q8H, [facility] First dose Branch on [facility] 10/27/22 at 1400, Until Discontinu ed, Routine metoprolol 0 Yes 25mg 25 mg, Unive rs tartrate 2-16 Oral, BID, ity o f (LOPRESSOR) 02:00: First dose [place] tablet 25 00 on Mon mg 10/26/22 at Branch 2000, Until Discontinu ed, Routine metoprolol 2022-2022- No [id number] 25mg Take 1 Univers tartrate 25 2-16 -19 tablet by it y of mg tablet 00:00: 04:59 mouth in [place] 00 :00 the morning Branch and 1 tablet in the evening. Do all this for 30 days. metoprolol 2022-0 2022- No [id number] 25mg Take 1 Univers tartrate 25 2-16 -19 tablet by it y of mg tablet 00:00: 04:59 mouth in [place] 00 :00 the [facility] morning Branch and 1 tablet in the evening. Do all this for 30 days. metoprolol 2022-0 2022- No [id number] 25mg Take 1 Univers tartrate 25 2-16 -19 tablet by it y of mg tablet 00:00: 04:59 mouth in [place] 00 :00 the [facility] and 1 tablet in the evening. Do all this for 30 days. KCL 2022- No 40meq 40 mEq, Univers (KLOR-CON 10-2615 Oral, ity of M20) tablet 05:45: 05:18 ONCE, 1 [place] 40 mEq 00 :00 dose, On [facility] 10/25/22 at 2345, Routine magnesium 2022- No 2g 2 g, IV Univ ers sulfate in 10-2615 Piggyback, it y of water 2 05:45: 06:20 Administer [place] as gram/50 mL 00 :00 over 60 Medica l (4 %) Minutes, Branch infusion 2 ONCE, 1 g dose, On [facility] 10/25/22 at 2345, Routine simvastatin 2022-0 Yes 20mg 20 mg, Univ ers (ZOCOR) 2-15 Oral, QHS, ity of tablet 20 03:00: First dose [place] mg 00 on Mon [facility] 10/25/22 at Branch 2100, Until Discontinu ed, Routine amLODIPine 2022-0 Yes 5mg 5 mg, Univer s (NORVASC) 2-15 Oral, QHS, ity of tablet 5 mg 03:00: First dose [place] 00 on [facility] 10/25/22 at Branch 2100, Until Discontinu ed, Routine phytonadion 2022-0 2023- No 10mg IV Unive rs e (VITAMIN 2- 0214 Piggyback, it y of K) 10 mg in 16:45: 18:08 ONCE, 1 [place] NaCl 0.9% 00 :00 dose, On Medica l (NS) [facility] piggyback 10/25/22 at 1045, 50 mL [...] xas 10 mL 01 Starting Medical on [facility] 10/25/22 at 0949, Until Discontinu ed, Routine, line maintenanc e lidocaine 2022-0 Yes 5mL 5 mL, Univers 1% (PF) 2-14 Subcutaneo ity of (XYLOCAINE) 15:49: us, PRN, [place] injection 5 01 Starting Medi joyce mL on [facility] 10/25/22 at 0949, Until Discontinu ed, Routine, Local anesthesia tamsulosin 2022-0 Yes .4mg 0.4 mg, Univ ers (FLOMAX) 2-14 Oral, ity of capsule 0.4 15:00: DAILY, [place] mg 00 First dose Medical on [facility] 10/25/22 at 0900, Until Discontinu ed, Routine pantoprazol 2022-0 Yes 40mg 40 mg, Univ ers e 2-14 Oral, ity of (PROTONIX) 15:00: DAILY, [place] EC tablet 00 First dose Medi joyce 40 mg on [facility] 10/25/22 at 0900, Until Discontinu ed, Routine FLUoxetine 2022-0 Yes 20mg 20 mg, Unive rs (PROZAC) 2-14 Oral, ity of capsule 20 15:00: DAILY, [place] mg 00 First dose Medical on [facility] 10/25/22 at 0900, Until Discontinu ed, Routine metFORMIN Yes 500mg 500 mg, Univ ers (GLUCOPHAGE 2-14 Oral, BID ity of ) tablet 14:00: MEALS, [place] 500 mg 00 First dose Medical on [facility] 10/25/22 at 0800, Until Discontinu ed, Routine memantine Yes 10mg 10 mg, Univer s (NAMENDA) 2-14 Oral, BID, ity of tablet 10 14:00: First dose [place] mg 00 on [facility] 10/25/22 at Branch 0800, Until Discontinu ed, Routine
cruise staff member approving Restricted medication : JARVIS MILLIGAN lisinopriL Yes 20mg 20 mg, Unive rs (PRINIVIL,Z 2-14 Oral, BID, it y of ESTRIL) 14:00: First dose [place] tablet 20 00 on [facility] mg 10/25/22 at Branch 0800, Until Discontinu ed, Routine gabapentin Yes 200mg 200 mg, Uni vers (NEURONTIN) 2-14 Oral, TID, it y of capsule 200 14:00: First dose [place] mg 00 on [facility] 10/25/22 at Branch 0800, Until Discontinu ed, Routine levETIRAcet 2022- No 500mg 500 mg, IV Univers am (KEPPRA) 10-25 0220 Piggyback, i ty of in NACL 14:00: 01:39 Q12H, [place] (ISO-OS) 00 :32 First dose Medic al 500 mg/100 on [facility] mL RTU 10/25/22 at 0800, Until Discontinu ed, Administer over 15 Minutes, 100 mL carvediloL 2022- No 6.25mg 6.25 mg, Univers (COREG) 10-25-15 Oral, BID ity of tablet 6.25 14:00: 21:58 MEALS, [place] as mg 00 :13 First dose Medical on [facility] 10/25/22 at 0800, Until Discontinu ed, Routine Sliding Yes Subcutaneo Univ ers Scale 2-14 us, AC+HS, ity of Insulin-Reg 13:30: First dose [place] ular + Fsbg 00 on Medica l Testing 10/25/22 at Branch 0730, Until Discontinu ed, Routine iopamidol 0 2022- No [id number] 80mL 80 mL, U nivers (ISOVUE 2-14 [...] 00 Starting Medical injection 1 on Mon [facility] 10/25/22 at 0107, Until Discontinu ed, [...] IV Push, ity of (PF)) 06:56: Q6HPRN, [place] injection 4 23 Starting Medi joyce mg on [facility] 10/25/22 at 0056, Until Discontinu ed, Routine, Nausea and Vomiting (N/V) acetaminoph 2022-0 Yes 650mg 650 mg, Un teo en 10-25 Oral, ity of (TYLENOL) 06:55: Q6HPRN, [place] tablet 650 49 Starting Medic al mg on [facility] 10/25/22 at 0055, Until Discontinu ed, Routine, Pain (scale 1-3) cefTRIAXone 2022-0 202- No 1000mg 1,000 mg, Univers (ROCEPHIN) 10-25 IV ity of 1,000 mg in 01:00: 01:42 Piggyback, [place] NaCl 0.9% 00 :00 ONCE, 1 Medical (NS) 50 mL dose, On [facility] h MINI-BAG [facility] 10/24/22 at 1900, Administer over 30 Minutes, 50 mL
Reas on for Anti-Infec tive: Documented Infection< br>Documen timur Infection Site: Urine<br&g t;Duration of Therapy: Other (see Comments) LORazepam 2022-0 2022- No 1mg 1 mg, Slow U nivers (ATIVAN) 10-25 IV Push, ity of injection 1 01:00: 01:09 ONCE, 1 [place] mg 00 :00 dose, On [facility] 10/24/22 at 1900, STAT amLODIPine 2022-0 Yes 5mg Take 5 mg Un teo 5 mg tablet 10-08 by mouth ity of 13:19: at [place] [address] bedtime. Medical Branch aspirin 81 2022-0 Yes 81mg Take 81 mg U nivers mg EC 10-08 by mouth ity of tablet 13:19: in the [place] [address] morning. Medical Branch lisinopriL 2022-0 Yes 20mg Take 20 mg U nivers 20 mg 10-08 by mouth ity of tablet 13:19: in the [place] [address] morning Medical and 20 mg Branch in the evening. metFORMIN 2022-0 Yes 500mg Take 500 Uni vers 500 mg 1-28 mg by ity of tablet 13:19: mouth in [place] [address] the Medical morning Branch and 500 mg in the evening. Take with meals. pantoprazol 2022-0 Yes 40mg Take 40 mg Univers e 10-08 by mouth ity of (PROTONIX) 13:19: in the [place] 20 mg EC morning. Medical tablet Branch tamsulosin 2022-0 Yes Take by [facility] ers (FLOMAX) 10-08 mouth ity of 0.4 mg 24 13:19: daily. [place] hr capsule 28 Medical Branch FLUoxetine 2022-0 Yes 20mg Take 20 mg U nivers 20 mg 10-08 by mouth ity of capsule 13:19: in the [place] [address] morning. Medical Branch gabapentin 2022-0 Yes 300mg Take 300 Un teo 300 mg - mg by ity of capsule 13:19: mouth 2 [place] [address] (two) Medical times Branch daily as needed. levETIRAcet 2022-0 Yes 250mg Take 250 U nivers am (KEPPRA) 10-08 mg by ity of 250 mg 13:19: mouth in [place] tablet 28 the Medical morning Branch and 250 mg in the evening. memantine 2022-0 Yes 10mg Take 10 mg Un teo 10 mg 10-08 by mouth ity of tablet 13:19: in the [place] [address] morning Medical and 10 mg Branch in the evening. simvastatin 2022-0 Yes 20mg Take 20 mg Univers 20 mg 10-08 by mouth ity of tablet 13:19: at [place] [address] bedtime. Medical Branch amLODIPine 2022-0 Yes 5mg Take 5 mg Un teo 5 mg tablet 10-08 by mouth ity of 13:19: at [place] [address] bedtime. Medical Branch aspirin 81 2022-0 Yes 81mg Take 81 mg U nivers mg EC 10-08 by mouth ity of tablet 13:19: in the [place] [address] morning. Medical Branch lisinopriL 2022-0 Yes 20mg Take 20 mg U nivers 20 mg 10-08 by mouth ity of tablet 13:19: in the [place] [address] morning Medical and 20 mg Branch in the evening. metFORMIN 2022-0 Yes 500mg Take 500 Uni vers 500 mg - mg by ity of tablet 13:19: mouth in [place] [address] the Medical morning Branch and 500 mg in the evening. Take with meals. pantoprazol 2022-0 Yes 40mg Take 40 mg Univers e 10-08 by mouth ity of (PROTONIX) 13:19: in the [place] 20 mg EC 28 morning. Medical tablet Branch tamsulosin 2022-0 Yes Take by [facility] ers (FLOMAX) 10-08 mouth ity of 0.4 mg 24 13:19: daily. [place] hr capsule 28 Medical Branch FLUoxetine 2022-0 Yes 20mg Take 20 mg U nivers 20 mg 10-08 by mouth ity of capsule 13:19: in the [place] [address] morning. Medical Branch gabapentin 2022-0 Yes 300mg Take 300 Un teo 300 mg - mg by ity of capsule 13:19: mouth 2 [place] [address] (two) Medical times Branch daily as needed. levETIRAcet 2022-0 Yes 250mg Take 250 U nivers am (KEPPRA) 10-08 mg by ity of 250 mg 13:19: mouth in [facility] 28 the Medical morning Branch and 250 mg in the evening. memantine 2022-0 Yes 10mg Take 10 mg Un teo 10 mg 10-08 by mouth ity of tablet 13:19: in the [place] [address] morning Medical and 10 mg Branch in the evening. simvastatin 2022-0 Yes 20mg Take 20 mg Univers 20 mg 10-08 by mouth ity of tablet 13:19: at [place] [address] bedtime. Medical Branch amLODIPine 2022-0 Yes 5mg Take 5 mg Un teo 5 mg tablet 10-08 by mouth ity of 13:19: at [place] [address] bedtime. Medical Branch aspirin 81 3-0 Yes 81mg Take 81 mg U nivers mg EC 10-08 by mouth ity of tablet 13:19: in the [place] [address] morning. Medical Branch lisinopriL 2022-0 Yes 20mg Take 20 mg U nivers 20 mg 10-08 by mouth ity of tablet 13:19: in the [place] [address] morning Medical and 20 mg Branch in the evening. metFORMIN 3-0 Yes 500mg Take 500 Uni vers 500 mg - mg by ity of tablet 13:19: mouth in [place] [address] the Medical morning Branch and 500 mg in the evening. Take with meals. pantoprazol 3-0 Yes 40mg Take 40 mg Univers e 10-08 by mouth ity of (PROTONIX) 13:19: in the [place] 20 mg EC 28 morning. Medical tablet Branch tamsulosin 2022-0 Yes Take by [facility] ers (FLOMAX) 10-08 mouth ity of 0.4 mg 24 13:19: daily. [place] hr capsule 28 Medical Branch FLUoxetine 2022-0 Yes 20mg Take 20 mg U nivers 20 mg 10-08 by mouth ity of capsule 13:19: in the [place] morning. Medical Branch gabapentin 2022-0 Yes 300mg Take 300 Un teo 300 mg - mg by ity of capsule 13:19: mouth 2 [place] 28 (two) Medical times Branch daily as needed. levETIRAcet 2022-0 Yes 250mg Take 250 U nivers am (KEPPRA) 10-08 mg by ity of 250 mg 13:19: mouth in [place] tablet 28 the Medical morning Branch and 250 mg in the evening. memantine 2022-0 Yes 10mg Take 10 mg Un teo 10 mg 10-08 by mouth ity of tablet 13:19: in the [place] morning Medical and 10 mg Branch in the evening. simvastatin 0 Yes 20mg Take 20 mg Univers 20 mg 10-08 by mouth ity of tablet 13:19: at [place] [address] bedtime. Medical Branch Sliding Yes Subcutaneo Univ [...] ity of bolus 03:32: PRN - SEE [place] infusion 30 INSTRUCTIO Medic al 250 mL [...] 30 Starting Medical injection 1 on Mon [facility] 10/07/22 at 2132, Until Discontinu ed, YOKO, Blood Glucose < or = 70 mg/dL and patient is NPO, unable to swallow or has mental changes. dextrose 2022-0 2022- No 250mL 250 mL, IV U nivers 10% (D10W) 10-08 Infusion, ity of bolus 03:32: 21:19 PRN - SEE [place] infusion 30 :30 INSTRUCTIO Medic al 250 [...] 10-07 Oral, ity of sodium 15:00: DAILY, [place] (SENOKOT-S) 00 First dose Me dical 8.6-50 [...] Oral, ity of sodium 15:00: 21:19 DAILY, [place] (SENOKOT-S) 00 :30 First dose Me dical [...] Until Discontinu ed, Routine hydralAZINE 2022- No [id number] 10mg 10 mg, Univers (APRESOLINE 10-07 Slow IV ity of ) injection 12:15: 11:26 [place] 10 mg 00 :00 ONCE, 1 Medical dose, On Branch Mon10/07/22 at 0615, STAT hydralAZINE 2022- No [id number] 10mg 10 mg, Univers (APRESOLINE 10-07 Slow IV ity of ) injection 12:15: 11:26 [place] 10 mg 00 :00 ONCE, 1 Medical dose, On Branch Mon10/07/22 at 0615, STAT simvastatin 2023-0 Yes 20mg 20 mg, Univ ers (ZOCOR) 10-07 Oral, QHS, ity of tablet 20 03:00: First dose [place] mg 00 on [facility] 10/06/22 at [place] 2100, Until Discontinu ed, Routine amLODIPine 0 Yes 5mg 5 mg, Univer s (NORVASC) 10-07 Oral, QHS, ity of tablet 5 mg 03:00: First dose [place] 00 on [facility] 10/06/22 at [place] 2099, Until Discontinu ed, Routine simvastatin 2022- No 20mg 20 mg, Uni vers (ZOCOR) 10-07 Oral, QHS, ity o f tablet 20 03:00: 21:19 First dose [place] mg 00 :30 on [facility] 10/06/22 at [place] 2099, Until Discontinu ed, Routine amLODIPine 2022- No 5mg 5 mg, Unive rs (NORVAS) 10-07 Oral, QHS, ity of tablet 5 mg 03:00: 21:19 First dose [place] 00 :30 on [facility] 10/06/22 at [place] 2099, Until Discontinu ed, Routine levETIRAcet Yes 250mg 250 mg, Un teo am (KEPPRA) 10-07 Oral, BID, it y of tablet 250 02:00: First dose [place] mg 00 on [facility] 10/06/22 at [place] 2000, Until Discontinu ed, Routine levETIRAcet 2022- No 250mg 250 mg, U nivers am (KEPPRA) 10-07 Oral, BID, i ty of tablet 250 02:00: 21:19 First dose [place] mg 00 :30 on [facility] 10/06/22 at [place] 2000, Until Discontinu ed, Routine carvediloL 2022- No [id number] 6.25mg Take 1 Univers 6.25 mg 10-07 tablet by ity of tablet 00:00: 05:59 mouth in [place] 00 :00 the Medical morning Branch and 1 tablet in the evening. Take with meals. Do all this for 30 days. carvediloL 2022- No [id number] 6.25mg Take 1 Univers 6.25 mg 1-27 02-27 tablet by ity of tablet 00:00: 05:59 mouth in [place] 00 :00 the Medical morning Branch and 1 tablet in the evening. Take with meals. Do all this for 30 days. carvediloL 2022-0 2022- No [id number] 6.25mg Take 1 Univers 6.25 mg 1-27 02-27 tablet by ity of tablet 00:00: 05:59 mouth in [place] 00 :00 the [facility] morning Branch and 1 tablet in the evening. Take with meals. Do all this for 30 days. carvediloL 2022-0 2022- No [id number] 6.25mg Take 1 Univers 6.25 mg -27 02-16 tablet by ity of tablet 00:00: 00:00 mouth in [place] 00 :00 the [facility] morning Branch and 1 tablet in the evening. Take with meals. Do all this for 30 days. lactated 2022-0 2022- No 500mL at 200 Unive rs ringers IV 10-06 mL/hr, 500 it y of infusion 20:15: 13:51 mL, [place] 500 mL 00 :00 Intravenou Medical s, ONCE, 1 Branch dose, On [facility] 10/06/22 at 1415, Routine lactated 2022-0 2022- No 500mL at 200 Unive rs ringers IV 10-0627 mL/hr, 500 it y of infusion 20:15: 13:51 mL, [place] 500 mL 00 :00 Intravenou Medical s, ONCE, 1 Branch dose, On [facility] 10/06/22 at 1415, Routine hydralAZINE 2022-0 2022- No 10mg 10 mg, Uni vers (APRESOLINE 10-06 Slow IV ity of ) injection 20:00: 19:15 [place] 10 mg 00 :00 ONCE, 1 Medical dose, On Branch [facility] 10/06/22 at 1400, STAT hydralAZINE 2022-0 2022- No 10mg 10 mg, Uni vers (APRESOLINE 10-06 Slow IV ity of ) injection 20:00: 19:15 [place] 10 mg 00 :00 ONCE, 1 Medical dose, On Branch [facility] 10/06/22 at 1400, STAT carvediloL 2022-0 Yes 6.25mg 6.25 mg, U nivers (COREG) 10-06 Oral, BID ity of tablet 6.25 19:30: MEALS, [place] mg 00 First dose Medical (after Branch last modificati on) on [facility] 10/06/22 at 1330, Until Discontinu ed, Routine [...] Medical mg last Branch modificati on) on [facility] 10/06/22 at 1145, Until Discontinu ed, Routine lisinopriL 0 2022- No 20mg 20 mg, Univ ers (PRINIVIL,Z 10-06 Oral, BID, i ty of ESTRIL) 17:45: 21:19 First dose [place] tablet 20 00 :30 (after Medical mg last Branch modificati on) on [facility] 10/06/22 at 1145, Until Discontinu ed, Routine acetaminoph 2022-0 Yes 650mg 650 mg, Un teo en 10-06 Oral, ity of (TYLENOL) 17:33: Q6HPRN, [place] tablet 650 13 Starting Medic al mg on [facility] Branch 10/06/22 at 1133, Until Discontinu ed, [...] Routine, Pain (scale 4-6) hydralAZINE 2022- No [id number] 10mg 10 mg, Univers (APRESOLINE 10-06 Slow IV ity of ) injection 17:30: 16:31 [place] 10 mg 00 :00 ONCE, 1 Medical dose, On Branch [facility] 10/06/22 at 1130, STAT hydralAZINE 2022- No [id number] 10mg 10 mg, Univers (APRESOLINE 10-06 Slow IV ity of ) injection 17:30: 16:31 [place] 10 mg 00 :00 ONCE, 1 Medical dose, On Branch [facility] 10/06/22 at 1130, STAT lidocaine 2022- No ONCE INTRA U nivers 1% (PF) 10-06 PROCEDURE, ity o f (XYLOCAINE) 14:22: 15:52 Starting [place] injection 52 :21 on [facility] 10/06/22 at Branch 0822, Until [facility] 10/06/22 at 0952, Routine, CV Intraproce dure iodixanol 2022- No ONCE INTRA U nivers (VISIPAQUE 10-06 PROCEDURE, it y of 320-100 mL) 14:03: 15:52 Starting [place] injection 41 :21 on [facility] 10/06/22 at Branch 0803, Until [facility] 10/06/22 at 0952, Routine, CV Intraproce dure hydralAZINE 2022-0 2022- No [id number] 10mg Inject 0.5 Univers 20 mg/mL 1-26 01-27 mL ity of injection 00:00: 00:00 intravenou [place] 00 :00 sly once Medical now for 1 Branch dose. hydralAZINE 2022- No [id number] 10mg Inject 0.5 Univers 20 mg/mL 10-06 01-27 mL ity of injection 00:00: 00:00 intravenou [place] 00 :00 sly once Medical now for 1 Branch dose. amitriptyli 2021-09- No [id number] 25mg Take 1 Univers ne 25 mg 0-23 10-31 tablet by ity o f tablet 00:00: 04:59 mouth at [place] 00 :00 bedtime Medical for 7 Branch days. amitriptyli 2021-09- No [id number] 25mg Take 1 Univers ne 25 mg 0-23 10-31 tablet by ity o f tablet 00:00: 04:59 mouth at [place] 00 :00 bedtime Medical for 7 Branch days. amitriptyli 2021-09- No [id number] 25mg Take 1 Univers ne 25 mg 0-23 10-31 tablet by ity o f tablet 00:00: 04:59 mouth at [place] 00 :00 bedtime Medical for 7 Branch days. amitriptyli 2021-09- No [id number] 25mg Take 1 Univers ne 25 mg 0-23 10-31 tablet by ity o f tablet 00:00: 04:59 mouth at [place] 00 :00 bedtime Medical for 7 Branch days. tamsulosin 2021-09 Yes .4mg 0.4 mg, Univ ers (FLOMAX) 0-16 Oral, QHS, ity o f capsule 0.4 02:00: First dose [place] mg 00 on [facility] 06/25/22 Branch at 2100, Until Discontinu ed, Routine amLODIPine 2021-09 Yes 5mg 5 mg, Univer s (NORVASC) 0-16 Oral, QHS, ity of tablet 5 mg 02:00: First dose [place] 00 on [facility] 06/25/22 Branch at 2100, Until Discontinu ed, Routine tamsulosin 2021-09- No .4mg 0.4 mg, Uni vers (FLOMAX) 0-16 10-15 Oral, QHS, ity of capsule 0.4 02:00: 21:09 First dose [place] mg 00 :41 on [facility] Medical 06/25/22 Branch at 2100, Until Discontinu ed, Routine amLODIPine 2021-09- No 5mg 5 mg, Unive rs (NORVASC) 0-16 10-15 Oral, QHS, ity of tablet 5 mg 02:00: 21:09 First dose [place] 00 :41 on [facility] Medical 06/25/22 Branch at 2100, Until Discontinu ed, Routine pantoprazol 2021-09- No [id number] 40mg Take 1 Univers e 0-16 01-15 tablet by ity of (PROTONIX) 00:00: 05:59 mouth in [place] 40 mg EC 00 :00 the Medical tablet morning Branch for 90 days. vitamin 2021-09- No [id number] 1000ug Take 1 U nivers B-12 1,000 0-16 01-15 tablet by ity of mcg tablet 00:00: 05:59 mouth in [place] 00 :00 the Medical morning Branch for 90 days. pantoprazol 2021-09- No [id number] 40mg Take 1 Univers e 0-16 01-15 tablet by ity of (PROTONIX) 00:00: 05:59 mouth in [place] 40 mg EC 00 :00 the Medical tablet morning Branch for 90 days. vitamin 2021-09- No [id number] 1000ug Take 1 U nivers B-12 1,000 0-16 01-15 tablet by ity of mcg tablet 00:00: 05:59 mouth in [place] 00 :00 the Medical morning Branch for 90 days. pantoprazol 2021-09- No [id number] 40mg Take 1 Univers e 0-16 01-15 tablet by ity of (PROTONIX) 00:00: 05:59 mouth in [place] 40 mg EC 00 :00 the Medical tablet morning Branch for 90 days. vitamin 2021-09- No [id number] 1000ug Take 1 U nivers B-12 1,000 0-16 01-15 tablet by ity of mcg tablet 00:00: 05:59 mouth in [place] 00 :00 the Medical morning Branch for 90 days. pantoprazol 2021-09- No [id number] 40mg Take 1 Univers e 0-16 01-15 tablet by ity of (PROTONIX) 00:00: 05:59 mouth in [place] 40 mg EC 00 :00 the Medical tablet morning Branch for 90 days. vitamin 2021-09- No [id number] 1000ug Take 1 U nivers B-12 1,000 0-16 01-15 tablet by ity of mcg tablet 00:00: 05:59 mouth in [place] 00 :00 the Medical morning Branch for 90 days. pantoprazol 2021-09- No [id number] 40mg Take 1 Univers e 0-16 01-15 tablet by ity of (PROTONIX) 00:00: 05:59 mouth in [place] 40 mg EC 00 :00 the Medical tablet morning Branch for 90 days. vitamin 2021-09- No [id number] 1000ug Take 1 U nivers B-12 1,000 0-16 01-15 tablet by ity of mcg tablet 00:00: 05:59 mouth in [place] 00 :00 the Medical morning Branch for 90 days. pantoprazol 2021-09- No [id number] 40mg Take 1 Univers e 0-16 01-15 tablet by ity of (PROTONIX) 00:00: 05:59 mouth in [place] 40 mg EC 00 :00 the Medical tablet morning Branch for 90 days. vitamin 2021-09- No [id number] 1000ug Take 1 U nivers B-12 1,000 0-16 01-15 tablet by ity of mcg tablet 00:00: 05:59 mouth in [place] 00 :00 the Medical morning Branch for 90 days. pantoprazol 2021-09- No [id number] 40mg Take 1 Univers e 0-16 01-15 tablet by ity of (PROTONIX) 00:00: 05:59 mouth in [place] 40 mg EC 00 :00 the Medical tablet morning Branch for 90 days. vitamin 2021-09- No [id number] 1000ug Take 1 U nivers B-12 1,000 0-16 01-15 tablet by ity of mcg tablet 00:00: 05:59 mouth in [place] 00 :00 the Medical morning Branch for 90 days. pantoprazol 2021-09- No [id number] 40mg Take 1 Univers e 0-16 01-15 tablet by ity of (PROTONIX) 00:00: 05:59 mouth in [place] 40 mg EC 00 :00 the Medical tablet morning Branch for 90 days. vitamin 2021-09- No [id number] 1000ug Take 1 U nivers B-12 1,000 0-16 01-15 tablet by ity of mcg tablet 00:00: 05:59 mouth in [place] 00 :00 the Medical morning Branch for 90 days. pantoprazol 2021-09- No [id number] 40mg Take 1 Univers e 0-16 01-15 tablet by ity of (PROTONIX) 00:00: 05:59 mouth in [place] 40 mg EC 00 :00 the Medical tablet morning Branch for 90 days. vitamin 2021-09- No [id number] 1000ug Take 1 U nivers B-12 1,000 0-16 01-15 tablet by ity of mcg tablet 00:00: 05:59 mouth in [place] 00 :00 the Medical morning Branch for 90 days. pantoprazol 2021-09- No [id number] 40mg Take 1 Univers e 0-16 01-15 tablet by ity of (PROTONIX) 00:00: 05:59 mouth in [place] 40 mg EC 00 :00 the Medical tablet morning Branch for 90 days. vitamin 2021-09- No [id number] 1000ug Take 1 U nivers B-12 1,000 0-16 01-15 tablet by ity of mcg tablet 00:00: 05:59 mouth in [place] 00 :00 the Medical morning Branch for 90 days. pantoprazol 2021-09- No [id number] 40mg Take 1 Univers e 0-16 01-15 tablet by ity of (PROTONIX) 00:00: 05:59 mouth in [place] 40 mg EC 00 :00 the Medical tablet morning Branch for 90 days. vitamin 2021-09- No [id number] 1000ug Take 1 U nivers B-12 1,000 0-16 01-15 tablet by ity of mcg tablet 00:00: 05:59 mouth in [place] 00 :00 the Medical morning Branch for 90 days. pantoprazol 2021-09- No [id number] 40mg Take 1 Univers e 0-16 01-15 tablet by ity of (PROTONIX) 00:00: 05:59 mouth in [place] 40 mg EC 00 :00 the Medical tablet morning Branch for 90 days. vitamin 2021-09 No [id number] 1000ug Take 1 U nivers B-12 1,000 [...] infusion 2 ONCE, 1 g dose, On [facility] 06/25/22 at 0900, Routine vitamin 2021-09 No [...] 40 mEq 00 :00 dose, On Medical [facility] Branch 06/25/22 at 0845, Routine levETIRAcet 2021-09 Yes 250mg 250 mg, Un teo am (KEPPRA) 0-15 Oral, BID, it y of tablet 250 13:00: First dose [place] mg 00 on [facility] Medical 06/25/22 Branch at 0800, Until Discontinu ed, Routine levETIRAcet 2021-09- No 250mg 250 mg, U nivers am (KEPPRA) 0-15 10-15 Oral, BID, i ty of tablet 250 13:00: 21:09 First dose [place] mg 00 :41 on Sat Medical 06/25/22 Branch at 0800, Until Discontinu ed, Routine PEPCID 2021-09- No prn Univers MG ORAL TAB 0-15 10-15 ity of 12:45: 00:00 [place] 24 :00 Medical Branch B COMPLEX 1 2021-09- No None Unive rs ORAL TAB 0-15 10-15 Entered ity of 12:45: 00:00 [place] 24 :00 Medical Branch M-VIT ORAL 2021-09- No None Univer s 0-15 10-15 Entered ity of 12:45: 00:00 [place] 24 :00 Medical Branch PEPCID 2021-09- No prn Univers MG ORAL TAB 0-15 10-15 ity of 12:45: 00:00 [place] 24 :00 Medical Branch B COMPLEX 1 2021-09- No None Unive rs ORAL TAB 0-15 10-15 Entered ity of 12:45: 00:00 [place] 24 :00 Medical Branch M-VIT ORAL 2021-09- No None Univer s 0-15 10-15 Entered ity of 12:45: 00:00 [place] 24 :00 Medical Branch metFORMIN 2021-09- No [id number] 500mg Take 1 Univers 500 mg 09-24 tablet by ity of tablet 00:00: 05:59 mouth in [place] 00 :00 the Medical morning Branch and 1 tablet in the evening. Take with meals. Do all this for 90 days. tamsulosin 2021-09- No [id number] .4mg Take 1 Univers 0.4 mg 24 09-24 capsule by ity of hr capsule 00:00: 05:59 mouth at [facility] 00 :00 bedtime Medical for 90 Branch days. amLODIPine 2021-09- No [id number] 5mg Take 1 Univers 5 mg tablet 09-24 tablet by it y of 00:00: 05:59 mouth at [place] 00 :00 bedtime Medical for 90 Branch days. levETIRAcet 2021-09- No [id number] 250mg Take 1 Univers am 250 mg 09-24 tablet by ity of tablet 00:00: 05:59 mouth in [place] 00 :00 the Medical morning Branch and 1 tablet in the evening. Do all this for 90 days. lisinopriL 2021-09- No [id number] 20mg Take 1 Univers 20 mg 0-15 -14 tablet by ity of tablet 00:00: 05:59 mouth in [place] 00 :00 the Medical morning Branch and 1 tablet in the evening. Do all this for 90 days. FLUoxetine 2021-09- No [id number] 20mg Take 1 Univers 20 mg 0-15 - capsule by ity of capsule 00:00: 05:59 mouth in [place] 00 :00 the [facility] for 90 days. memantine 2021-09- No [id number] 10mg Take 1 U nivers 10 mg 0-15 - tablet by ity of tablet 00:00: 05:59 mouth in [place] 00 :00 the [facility] morning [place] and 1 tablet in the evening. Do all this for 90 days. pyridostigm 2021-09- No [id number] 60mg Take 1 Univers ine 60 mg 009-24 tablet by ity of tablet 00:00: 05:59 mouth as [place] 00 :00 needed for Medical Other Branch (HYPOTENSI ON) for up to 90 days. simvastatin 2021-09- No [id number] 20mg Take 1 Univers 20 mg 0- tablet by ity of tablet 00:00: 05:59 mouth at [place] 00 :00 bedtime Medical for 90 Branch days. aspirin 81 2021-09- No [id number] 81mg Take 1 Univers mg chewable 009-24 tablet by it y of tablet 00:00: 05:59 mouth in [place] 00 :00 the [facility] for 90 days. KCL 20 mEq 2021-09- No [id number] 40meq Take 2 Univers tablet 014 tablets by ity of 00:00: 05:59 mouth in [place] 00 :00 the [facility] morning [place] for 90 days. metFORMIN 2021-093- No [id number] 500mg Take 1 Univers 500 mg 0-15 -14 tablet by ity of tablet 00:00: 05:59 mouth in [place] 00 :00 the Medical morning Branch and 1 tablet in the evening. Take with meals. Do all this for 90 days. tamsulosin 2021-09- No [id number] .4mg Take 1 Univers 0.4 mg 24 0-15 -14 capsule by ity of hr capsule 00:00: 05:59 mouth at [place] 00 :00 bedtime Medical for 90 Branch days. amLODIPine 2021-09- No [id number] 5mg Take 1 Univers 5 mg tablet 0-15 -14 tablet by it y of 00:00: 05:59 mouth at [place] 00 :00 bedtime Medical for 90 Branch days. levETIRAcet 2021-09- No [id number] 250mg Take 1 Univers am 250 mg 0-15 -14 tablet by ity of tablet 00:00: 05:59 mouth in [place] 00 :00 the Medical morning Branch and 1 tablet in the evening. Do all this for 90 days. lisinopriL 2021-09- No [id number] 20mg Take 1 Univers 20 mg 0-15 -14 tablet by ity of tablet 00:00: 05:59 mouth in [place] 00 :00 the Medical morning Branch and 1 tablet in the evening. Do all this for 90 days. FLUoxetine 2021-09- No [id number] 20mg Take 1 Univers 20 mg 0-15 -14 capsule by ity of capsule 00:00: 05:59 mouth in [place] 00 :00 the Medical morning Branch for 90 days. memantine 2021-09- No [id number] 10mg Take 1 U nivers 10 mg 0-15 -14 tablet by ity of tablet 00:00: 05:59 mouth in [place] 00 :00 the Medical morning Branch and 1 tablet in the evening. Do all this for 90 days. pyridostigm 2021-09- No [id number] 60mg Take 1 Univers ine 60 mg 0-15 -14 tablet by ity of tablet 00:00: 05:59 mouth as [place] 00 :00 needed for Medical Other Branch (HYPOTENSI ON) for up to 90 days. simvastatin 2021-09- No [id number] 20mg Take 1 Univers 20 mg 0-15 -14 tablet by ity of tablet 00:00: 05:59 mouth at [place] 00 :00 bedtime Medical for 90 Branch days. aspirin 81 2021-09- No [id number] 81mg Take 1 Univers mg chewable 0-15 -14 tablet by it y of tablet 00:00: 05:59 mouth in [place] 00 :00 the [facility] for 90 days. KCL 20 mEq 2021-09- No [id number] 40meq Take 2 Univers tablet 0- tablets by ity of 00:00: 05:59 mouth in [place] 00 :00 the [facility] for 90 days. metFORMIN 2021-09- No [id number] 500mg Take 1 Univers 500 mg 0- tablet by ity of tablet 00:00: 05:59 mouth in [place] 00 :00 the [facility] and 1 tablet in the evening. Take with meals. Do all this for 90 days. tamsulosin 2021-09- No [id number] .4mg Take 1 Univers 0.4 mg 24 009-24 capsule by ity of hr capsule 00:00: 05:59 mouth at [facility] 00 :00 bedtime [facility] for 90 Branch days. amLODIPine 2021-09- No [id number] 5mg Take 1 Univers 5 mg tablet 009-24 tablet by it y of 00:00: 05:59 mouth at [place] 00 :00 [facility] for 90 Branch days. levETIRAcet 2021-09- No [id number] 250mg Take 1 Univers am 250 mg 09-24 tablet by ity of tablet 00:00: 05:59 mouth in [place] 00 :00 the [facility] and 1 tablet in the evening. Do all this for 90 days. lisinopriL 2021-09- No [id number] 20mg Take 1 Univers 20 mg 0- tablet by ity of tablet 00:00: 05:59 mouth in [place] 00 :00 the [facility] and 1 tablet in the evening. Do all this for 90 days. FLUoxetine 2021-09- No [id number] 20mg Take 1 Univers 20 mg 0- capsule by ity of capsule 00:00: 05:59 mouth in [place] 00 :00 the [facility] for 90 days. memantine 2021-09- No [id number] 10mg Take 1 U nivers 10 mg 0- tablet by ity of tablet 00:00: 05:59 mouth in [place] 00 :00 the [facility] and 1 tablet in the evening. Do all this for 90 days. pyridostigm 2021-09- No [id number] 60mg Take 1 Univers ine 60 mg 0- tablet by ity of tablet 00:00: 05:59 mouth as [place] 00 :00 needed for Medical Other Branch (HYPOTENSI ON) for up to 90 days. simvastatin 2021-09- No [id number] 20mg Take 1 Univers 20 mg 0-15 -14 tablet by ity of tablet 00:00: 05:59 mouth at [place] 00 :00 bedtime Medical for 90 Branch days. aspirin 81 2021-09- No [id number] 81mg Take 1 Univers mg chewable 0- tablet by it y of tablet 00:00: 05:59 mouth in [place] 00 :00 the Medical morning Branch for 90 days. metFORMIN 2021-09- No [id number] 500mg Take 1 Univers 500 mg 009-24 tablet by ity of tablet 00:00: 05:59 mouth in [place] 00 :00 the Medical morning Branch and 1 tablet in the evening. Take with meals. Do all this for 90 days. tamsulosin 2021-09- No [id number] .4mg Take 1 Univers 0.4 mg 24 009-24 capsule by ity of hr capsule 00:00: 05:59 mouth at [facility] 00 :00 bedtime Medical for 90 Branch days. amLODIPine 2021-09- No [id number] 5mg Take 1 Univers 5 mg tablet 009-24 tablet by it y of 00:00: 05:59 mouth at [place] 00 :00 bedtime Medical for 90 Branch days. levETIRAcet 2021-09- No [id number] 250mg Take 1 Univers am 250 mg 009-24 tablet by ity of tablet 00:00: 05:59 mouth in [place] 00 :00 the Medical morning Branch and 1 tablet in the evening. Do all this for 90 days. lisinopriL 2021-09- No [id number] 20mg Take 1 Univers 20 mg 0-15 -14 tablet by ity of tablet 00:00: 05:59 mouth in [place] 00 :00 the Medical morning Branch and 1 tablet in the evening. Do all this for 90 days. FLUoxetine 2021-09- No [id number] 20mg Take 1 Univers 20 mg 0-15 -14 capsule by ity of capsule 00:00: 05:59 mouth in [place] 00 :00 the Medical morning Branch for 90 days. memantine 2021-09- No [id number] 10mg Take 1 U nivers 10 mg 0-15 - tablet by ity of tablet 00:00: 05:59 mouth in [place] 00 :00 the Medical morning Branch and 1 tablet in the evening. Do all this for 90 days. pyridostigm 2021-09- No [id number] 60mg Take 1 Univers ine 60 mg 0-15 - tablet by ity of tablet 00:00: 05:59 mouth as [place] 00 :00 needed for Medical Other Branch (HYPOTENSI ON) for up to 90 days. simvastatin 2021-09- No [id number] 20mg Take 1 Univers 20 mg 009-24 tablet by ity of tablet 00:00: 05:59 mouth at [place] 00 :00 bedtime Medical for 90 Branch days. aspirin 81 2021-09- No [id number] 81mg Take 1 [facility] mg chewable 009-24 tablet by it y of tablet 00:00: 05:59 mouth in [place] 00 :00 the Medical morning Branch for 90 days. KCL 20 mEq 2021-09- No [id number] 40meq Take 2 [facility] tablet 009-24 tablets by ity of 00:00: 05:59 mouth in [place] 00 :00 the Medical morning Branch for 90 days. metFORMIN 2021-09- No [id number] 500mg Take 1 [facility] 500 mg 009-24 tablet by ity of tablet 00:00: 05:59 mouth in [place] 00 :00 the Medical morning Branch and 1 tablet in the evening. Take with meals. Do all this for 90 days. tamsulosin 2021-09- No [id number] .4mg Take 1 [facility] 0.4 mg 24 09-24 capsule by ity of hr capsule 00:00: 05:59 mouth [place] 00 :00 bedtime Medical for 90 Branch days. amLODIPine 2021-09- No [id number] 5mg Take 1 [facility] 5 mg tablet 09-24 tablet by it y of 00:00: 05:59 mouth at [place] 00 :00 bedtime Medical for 90 Branch days. levETIRAcet 2021-09- No [id number] 250mg Take 1 [facility] am 250 mg 0-15 -14 tablet by ity of tablet 00:00: 05:59 mouth in [place] 00 :00 the Medical morning Branch and 1 tablet in the evening. Do all this for 90 days. lisinopriL 2021-09- No [id number] 20mg Take 1 [facility] 20 mg 0-15 -14 tablet by ity of tablet 00:00: 05:59 mouth in [place] 00 :00 the Medical morning Branch and 1 tablet in the evening. Do all this for 90 days. FLUoxetine 2021-09- No [id number] 20mg Take 1 [facility] 20 mg 0-15 - capsule by ity of capsule 00:00: 05:59 mouth in [place] 00 :00 the [facility] for 90 days. memantine 2021-09- No [id number] 10mg Take 1 U nivers 10 mg 009-24 tablet by ity of tablet 00:00: 05:59 mouth in [place] 00 :00 the [facility] morning Branch and 1 tablet in the evening. Do all this for 90 days. pyridostigm 2021-09- No [id number] 60mg Take 1 [facility] ine 60 mg 009-24 tablet by ity of tablet 00:00: 05:59 mouth as [place] 00 :00 needed for Medical Other Branch (HYPOTENSI ON) for up to 90 days. simvastatin 2021-09- No [id number] 20mg Take 1 [facility] 20 mg 0-15 -14 tablet by ity of tablet 00:00: 05:59 mouth at [place] 00 :00 bedtime Medical for 90 Branch days. aspirin 81 2021-09- No [id number] 81mg Take 1 [facility] mg chewable 0-14 tablet by it y of tablet 00:00: 05:59 mouth in [place] 00 :00 the Medical morning Branch for 90 days. KCL 20 mEq 2021-09- No [id number] 40meq Take 2 [facility] tablet 0-15 -14 tablets by ity of 00:00: 05:59 mouth in [place] 00 :00 the Medical morning Branch for 90 days. metFORMIN 2021-09- No [id number] 500mg Take 1 [facility] 500 mg 0-15 -14 tablet by ity of tablet 00:00: 05:59 mouth in [place] 00 :00 the Medical morning Branch and 1 tablet in the evening. Take with meals. Do all this for 90 days. tamsulosin 2021-09- No [id number] .4mg Take 1 [facility] 0.4 mg 24 009-24 capsule by ity of hr capsule 00:00: 05:59 mouth [place] 00 :00 bedtime Medical for 90 Branch days. amLODIPine 2021-09- No [id number] 5mg Take 1 [facility] 5 mg tablet 09-24 tablet by it y of 00:00: 05:59 mouth at [place] 00 :00 bedtime Medical for 90 Branch days. levETIRAcet 2021-09- No [id number] 250mg Take 1 [facility] am 250 mg 09-24 tablet by ity of tablet 00:00: 05:59 mouth in [place] 00 :00 the Medical morning Branch and 1 tablet in the evening. Do all this for 90 days. lisinopriL 2021-09- No [id number] 20mg Take 1 [facility] 20 mg 09-24 tablet by ity of tablet 00:00: 05:59 mouth in [place] 00 :00 the Medical morning Branch and 1 tablet in the evening. Do all this for 90 days. FLUoxetine 2021-09- No [id number] 20mg Take 1 [facility] 20 mg 009-24 capsule by ity of capsule 00:00: 05:59 mouth in [place] 00 :00 the Medical morning Branch for 90 days. memantine 2021-09- No [id number] 10mg Take 1 U nivers 10 mg 09-24 tablet by ity of tablet 00:00: 05:59 mouth in [place] 00 :00 the Medical morning Branch and 1 tablet in the evening. Do all this for 90 days. pyridostigm 2021-09- No [id number] 60mg Take 1 [facility] ine 60 mg 0-09-24 tablet by ity of tablet 00:00: 05:59 mouth as [place] 00 :00 needed for Medical Other Branch (HYPOTENSI ON) for up to 90 days. simvastatin 2021-09- No [id number] 20mg Take 1 [facility] 20 mg 0-15 - tablet by ity of tablet 00:00: 05:59 mouth at [place] 00 :00 bedtime Medical for 90 Branch days. aspirin 81 2021-09- No [id number] 81mg Take 1 [facility] mg chewable 0- tablet by it y of tablet 00:00: 05:59 mouth in [place] 00 :00 the [facility] morning [place] for 90 days. KCL 20 mEq 2021-09- No [id number] 40meq Take 2 [facility] tablet 0-14 tablets by ity of 00:00: 05:59 mouth in [place] 00 :00 the [facility] morning [place] for 90 days. metFORMIN 2021-09- No [id number] 500mg Take 1 [facility] 500 mg 0-14 tablet by ity of tablet 00:00: 05:59 mouth in [place] 00 :00 the [facility] morning [place] and 1 tablet in the evening. Take with meals. Do all this for 90 days. tamsulosin 2021-09- No [id number] .4mg Take 1 [facility] 0.4 mg 24 009-24 capsule by ity of hr capsule 00:00: 05:59 mouth at [facility] 00 :00 [facility] for 90 Branch days. amLODIPine 2021-09- No [id number] 5mg Take 1 [facility] 5 mg tablet 009-24 tablet by it y of 00:00: 05:59 mouth at [place] 00 :00 [facility] for 90 Branch days. levETIRAcet 2021-09- No [id number] 250mg Take 1 [facility] am 250 mg 009-24 tablet by ity of tablet 00:00: 05:59 mouth in [place] 00 :00 the [facility] morning [place] and 1 tablet in the evening. Do all this for 90 days. lisinopriL 2021-09- No [id number] 20mg Take 1 [facility] 20 mg 0-15 -14 tablet by ity of tablet 00:00: 05:59 mouth in [place] 00 :00 the [facility] morning [place] and 1 tablet in the evening. Do all this for 90 days. FLUoxetine 2021-09- No [id number] 20mg Take 1 [facility] 20 mg 0-15 -14 capsule by ity of capsule 00:00: 05:59 mouth in [place] 00 :00 the [facility] for 90 days. memantine 2021-09- No [id number] 10mg Take 1 U nivers 10 mg 009-24 tablet by ity of tablet 00:00: 05:59 mouth in [place] 00 :00 the Medical morning Branch and 1 tablet in the evening. Do all this for 90 days. pyridostigm 2021-09- No [id number] 60mg Take 1 [facility] ine 60 mg 009-24 tablet by ity of tablet 00:00: 05:59 mouth as [place] 00 :00 needed for Medical Other Branch (HYPOTENSI ON) for up to 90 days. simvastatin 2021-09- No [id number] 20mg Take 1 [facility] 20 mg 009-24 tablet by ity of tablet 00:00: 05:59 mouth at [place] 00 :00 bedtime Medical for 90 Branch days. aspirin 81 2021-09- No [id number] 81mg Take 1 [facility] mg chewable 09-24 tablet by it y of tablet 00:00: 05:59 mouth in [place] 00 :00 the Medical morning Branch for 90 days. KCL 20 mEq 2021-09- No [id number] 40meq Take 2 [facility] tablet 09-24 tablets by ity of 00:00: 05:59 mouth in [place] 00 :00 the Medical morning Branch for 90 days. metFORMIN 2021-09- No [id number] 500mg Take 1 [facility] 500 mg 09-24 tablet by ity of tablet 00:00: 05:59 mouth in [place] 00 :00 the Medical morning Branch and 1 tablet in the evening. Take with meals. Do all this for 90 days. tamsulosin 2021-09- No [id number] .4mg Take 1 [facility] 0.4 mg 24 09-24 capsule by ity of hr capsule 00:00: 05:59 mouth at [place] 00 :00 bedtime Medical for 90 Branch days. amLODIPine 2021-09- No [id number] 5mg Take 1 [facility] 5 mg tablet 09-24 tablet by it y of 00:00: 05:59 mouth at [place] 00 :00 bedtime Medical for 90 Branch days. levETIRAcet 2021-09- No [id number] 250mg Take 1 [facility] am 250 mg 09-24 tablet by ity of tablet 00:00: 05:59 mouth in [place] 00 :00 the Medical morning Branch and 1 tablet in the evening. Do all this for 90 days. lisinopriL 2021-09- No [id number] 20mg Take 1 [facility] 20 mg 0-15 -14 tablet by ity of tablet 00:00: 05:59 mouth in [place] 00 :00 the Medical morning Branch and 1 tablet in the evening. Do all this for 90 days. FLUoxetine 2021-09- No [id number] 20mg Take 1 [facility] 20 mg 0-15 -14 capsule by ity of capsule 00:00: 05:59 mouth in [place] 00 :00 the [facility] for 90 days. memantine 2021-09- No [id number] 10mg Take 1 U nivers 10 mg 0-15 -14 tablet by ity of tablet 00:00: 05:59 mouth in [place] 00 :00 the [facility] morning [place] and 1 tablet in the evening. Do all this for 90 days. pyridostigm 2021-09- No [id number] 60mg Take 1 [facility] ine 60 mg 0-15 -14 tablet by ity of tablet 00:00: 05:59 mouth as [place] 00 :00 needed for Medical Other Branch (HYPOTENSI ON) for up to 90 days. simvastatin 2021-09- No [id number] 20mg Take 1 [facility] 20 mg 0-15 -14 tablet by ity of tablet 00:00: 05:59 mouth at [place] 00 :00 bedtime Medical for 90 Branch days. aspirin 81 2021-09- No [id number] 81mg Take 1 [facility] mg chewable 0-15 -14 tablet by it y of tablet 00:00: 05:59 mouth in [place] 00 :00 the [facility] morning [place] for 90 days. KCL 20 mEq 2021-09- No [id number] 40meq Take 2 [facility] tablet 0-15 -14 tablets by ity of 00:00: 05:59 mouth in [place] 00 :00 the [facility] morning [place] for 90 days. metFORMIN 2021-09- No [id number] 500mg Take 1 [facility] 500 mg 0-15 -14 tablet by ity of tablet 00:00: 05:59 mouth in [place] 00 :00 the Medical morning Branch and 1 tablet in the evening. Take with meals. Do all this for 90 days. tamsulosin 2021-09- No [id number] .4mg Take 1 [facility] 0.4 mg 24 0-15 -14 capsule by ity of hr capsule 00:00: 05:59 mouth [place] 00 :00 bedtime Medical for 90 Branch days. amLODIPine 2021-09- No [id number] 5mg Take 1 [facility] 5 mg tablet 0-15 -14 tablet by it y of 00:00: 05:59 mouth at [place] 00 :00 bedtime Medical for 90 Branch days. levETIRAcet 2021-09- No [id number] 250mg Take 1 [facility] am 250 mg 0-15 -14 tablet by ity of tablet 00:00: 05:59 mouth in [place] 00 :00 the Medical morning Branch and 1 tablet in the evening. Do all this for 90 days. lisinopriL 2021-09- No [id number] 20mg Take 1 [facility] 20 mg 0-15 -14 tablet by ity of tablet 00:00: 05:59 mouth in [place] 00 :00 the Medical morning Branch and 1 tablet in the evening. Do all this for 90 days. FLUoxetine 2021-09- No [id number] 20mg Take 1 [facility] 20 mg 0-15 -14 capsule by ity of capsule 00:00: 05:59 mouth in [place] 00 :00 the Medical morning Branch for 90 days. memantine 2021-09- No [id number] 10mg Take 1 U nivers 10 mg 0-15 -14 tablet by ity of tablet 00:00: 05:59 mouth in [place] 00 :00 the Medical morning Branch and 1 tablet in the evening. Do all this for 90 days. pyridostigm 2021-09- No [id number] 60mg Take 1 [facility] ine 60 mg 0-15 -14 tablet by ity of tablet 00:00: 05:59 mouth as [place] 00 :00 needed for Medical Other Branch (HYPOTENSI ON) for up to 90 days. simvastatin 2021-09- No [id number] 20mg Take 1 [facility] 20 mg 0-15 -14 tablet by ity of tablet 00:00: 05:59 mouth at [place] 00 :00 bedtime Medical for 90 Branch days. aspirin 81 2021-09- No [id number] 81mg Take 1 [facility] mg chewable 0-15 -14 tablet by it y of tablet 00:00: 05:59 mouth in [place] 00 :00 the [facility] morning [place] for 90 days. KCL 20 mEq 2021-09- No [id number] 40meq Take 2 [facility] tablet 009-24 tablets by ity of 00:00: 05:59 mouth in [place] 00 :00 the [facility] morning [place] for 90 days. metFORMIN 2021-09- No [id number] 500mg Take 1 [facility] 500 mg 009-24 tablet by ity of tablet 00:00: 05:59 mouth in [place] 00 :00 the [facility] morning [place] and 1 tablet in the evening. Take with meals. Do all this for 90 days. tamsulosin 2021-09- No [id number] .4mg Take 1 [facility] 0.4 mg 24 09-24 capsule by ity of hr capsule 00:00: 05:59 mouth at [facility] 00 :00 bedtime [facility] for 90 Branch days. amLODIPine 2021-09- No [id number] 5mg Take 1 [facility] 5 mg tablet 09-24 tablet by it y of 00:00: 05:59 mouth at [place] 00 :00 [facility] for 90 Branch days. levETIRAcet 2021-09- No [id number] 250mg Take 1 [facility] am 250 mg 09-24 tablet by ity of tablet 00:00: 05:59 mouth in [place] 00 :00 the [facility] morning [place] and 1 tablet in the evening. Do all this for 90 days. lisinopriL 2021-09- No [id number] 20mg Take 1 [facility] 20 mg 09-24 tablet by ity of tablet 00:00: 05:59 mouth in [place] 00 :00 the [facility] and 1 tablet in the evening. Do all this for 90 days. FLUoxetine 2021-09- No [id number] 20mg Take 1 [facility] 20 mg 009-24 capsule by ity of capsule 00:00: 05:59 mouth in [place] 00 :00 the [facility] for 90 days. memantine 2021-09- No [id number] 10mg Take 1 U nivers 10 mg 009-24 tablet by ity of tablet 00:00: 05:59 mouth in [place] 00 :00 the [facility] and 1 tablet in the evening. Do all this for 90 days. pyridostigm 2021-09- No [id number] 60mg Take 1 [facility] ine 60 mg 0- tablet by ity of tablet 00:00: 05:59 mouth as [place] 00 :00 needed for Medical Other Branch (HYPOTENSI ON) for up to 90 days. simvastatin 2021-09- No [id number] 20mg Take 1 [facility] 20 mg 0- tablet by ity of tablet 00:00: 05:59 mouth at [place] 00 :00 bedtime Medical for 90 Branch days. aspirin 81 2021-09- No [id number] 81mg Take 1 [facility] mg chewable 009-24 tablet by it y of tablet 00:00: 05:59 mouth in [place] 00 :00 the Medical morning Branch for 90 days. KCL 20 mEq 2021-09- No [id number] 40meq Take 2 [facility] tablet 009-24 tablets by ity of 00:00: 05:59 mouth in [place] 00 :00 the Medical morning Branch for 90 days. metFORMIN 2021-09- No [id number] 500mg Take 1 [facility] 500 mg 009-24 tablet by ity of tablet 00:00: 05:59 mouth in [place] 00 :00 the Medical morning Branch and 1 tablet in the evening. Take with meals. Do all this for 90 days. tamsulosin 2021-09- No [id number] .4mg Take 1 [facility] 0.4 mg 24 009-24 capsule by ity of hr capsule 00:00: 05:59 mouth [place] 00 :00 bedtime Medical for 90 Branch days. amLODIPine 2021-09- No [id number] 5mg Take 1 [facility] 5 mg tablet 009-24 tablet by it y of 00:00: 05:59 mouth at [place] 00 :00 bedtime Medical for 90 Branch days. levETIRAcet 2021-09- No [id number] 250mg Take 1 [facility] am 250 mg 009-24 tablet by ity of tablet 00:00: 05:59 mouth in [place] 00 :00 the Medical morning Branch and 1 tablet in the evening. Do all this for 90 days. lisinopriL 2021-09- No [id number] 20mg Take 1 [facility] 20 mg 0-15 -14 tablet by ity of tablet 00:00: 05:59 mouth in [place] 00 :00 the Medical morning Branch and 1 tablet in the evening. Do all this for 90 days. FLUoxetine 2021-09- No [id number] 20mg Take 1 [facility] 20 mg 0-15 -14 capsule by ity of capsule 00:00: 05:59 mouth in [place] 00 :00 the [facility] morning Branch for 90 days. memantine 2021-09- No [id number] 10mg Take 1 U nivers 10 mg 0-15 -14 tablet by ity of tablet 00:00: 05:59 mouth in [place] 00 :00 the Medical morning Branch and 1 tablet in the evening. Do all this for 90 days. pyridostigm 2021-09- No [id number] 60mg Take 1 [facility] ine 60 mg 0-15 -14 tablet by ity of tablet 00:00: 05:59 mouth as [place] 00 :00 needed for Medical Other Branch (HYPOTENSI ON) for up to 90 days. simvastatin 2021-09- No [id number] 20mg Take 1 [facility] 20 mg 0-15 -14 tablet by ity of tablet 00:00: 05:59 mouth at [place] 00 :00 bedtime Medical for 90 Branch days. aspirin 81 2021-09- No [id number] 81mg Take 1 [facility] mg chewable 0-15 -14 tablet by it y of tablet 00:00: 05:59 mouth in [place] 00 :00 the [facility] morning [place] for 90 days. KCL 20 mEq 2021-09- No [id number] 40meq Take 2 [facility] tablet 0-15 -14 tablets by ity of 00:00: 05:59 mouth in [place] 00 :00 the [facility] morning Branch for 90 days. metFORMIN 2021-09- No [id number] 500mg Take 1 [facility] 500 mg 0-15 -14 tablet by ity of tablet 00:00: 05:59 mouth in [place] 00 :00 the [facility] morning Branch and 1 tablet in the evening. Take with meals. Do all this for 90 days. tamsulosin 2021-09- No [id number] .4mg Take 1 [facility] 0.4 mg 24 0-15 -14 capsule by ity of hr capsule 00:00: 05:59 mouth at [place] 00 :00 bedtime Medical for 90 Branch days. amLODIPine 2021-09- No [id number] 5mg Take 1 [facility] 5 mg tablet 0-14 tablet by it y of 00:00: 05:59 mouth at [place] 00 :00 bedtime Medical for 90 Branch days. levETIRAcet 2021-09- No [id number] 250mg Take 1 [facility] am 250 mg 0-14 tablet by ity of tablet 00:00: 05:59 mouth in [place] 00 :00 the Medical morning Branch and 1 tablet in the evening. Do all this for 90 days. lisinopriL 2021-09- No [id number] 20mg Take 1 [facility] 20 mg 015 - tablet by ity of tablet 00:00: 05:59 mouth in [place] 00 :00 the Medical morning Branch and 1 tablet in the evening. Do all this for 90 days. FLUoxetine 2021-09- No [id number] 20mg Take 1 [facility] 20 mg 015 - capsule by ity of capsule 00:00: 05:59 mouth in [place] 00 :00 the [facility] morning Branch for 90 days. memantine 2021-09- No [id number] 10mg Take 1 U nivers 10 mg 009-24 tablet by ity of tablet 00:00: 05:59 mouth in [place] 00 :00 the Medical morning Branch and 1 tablet in the evening. Do all this for 90 days. pyridostigm 2021-09- No [id number] 60mg Take 1 [facility] ine 60 mg 0- tablet by ity of tablet 00:00: 05:59 mouth as [place] 00 :00 needed for Medical Other Branch (HYPOTENSI ON) for up to 90 days. simvastatin 2021-09- No [id number] 20mg Take 1 [facility] 20 mg 0-15 -14 tablet by ity of tablet 00:00: 05:59 mouth at [place] 00 :00 bedtime Medical for 90 Branch days. aspirin 81 2021-09- No [id number] 81mg Take 1 [facility] mg chewable 0-15 -14 tablet by it y of tablet 00:00: 05:59 mouth in [place] 00 :00 the Medical morning Branch for 90 days. KCL 20 mEq 2021-09- No [id number] 40meq Take 2 [facility] tablet 0-15 01-14 tablets by ity of 00:00: 05:59 mouth in [place] 00 :00 the Medical morning Branch for 90 days. gabapentin 2021-09- No [id number] 300mg Take 1 [facility] 300 mg 0-15 12-15 capsule by ity of capsule 00:00: 05:59 mouth as [place] 00 :00 needed for Medical Pain Branch (scale 4-6) for up to 60 days. gabapentin 2021-09- No [id number] 300mg Take 1 [facility] 300 mg 0-15 12-15 capsule by ity of capsule 00:00: 05:59 mouth as [place] 00 :00 needed for Medical Pain Branch (scale 4-6) for up to 60 days. gabapentin 2021-09- No [id number] 300mg Take 1 [facility] 300 mg 0-15 12-15 capsule by ity of capsule 00:00: 05:59 mouth as [place] 00 :00 needed for Medical Pain Branch (scale 4-6) for up to 60 days. gabapentin 2021-09- No [id number] 300mg Take 1 [facility] 300 mg 0-15 12-15 capsule by ity of capsule 00:00: 05:59 mouth as [place] 00 :00 needed for Medical Pain Branch (scale 4-6) for up to 60 days. gabapentin 2021-09- No [id number] 300mg Take 1 [facility] 300 mg 0-15 12-15 capsule by ity of capsule 00:00: 05:59 mouth as [place] 00 :00 needed for Medical Pain Branch (scale 4-6) for up to 60 days. gabapentin 2021-09- No [id number] 300mg Take 1 [facility] 300 mg 0-15 12-15 capsule by ity of capsule 00:00: 05:59 mouth as [place] 00 :00 needed for Medical Pain Branch (scale 4-6) for up to 60 days. gabapentin 2021-09- No [id number] 300mg Take 1 [facility] 300 mg 0-15 12-15 capsule by ity of capsule 00:00: 05:59 mouth as [place] 00 :00 needed for Medical Pain Branch (scale 4-6) for up to 60 days. gabapentin 2021-09- No [id number] 300mg Take 1 [facility] 300 mg 0-15 12-15 capsule by ity of capsule 00:00: 05:59 mouth as [place] 00 :00 needed for Medical Pain Branch (scale 4-6) for up to 60 days. gabapentin 2021-09- No [id number] 300mg Take 1 [facility] 300 mg 0-15 12-15 capsule by ity of capsule 00:00: 05:59 mouth as [place] 00 :00 needed for Medical Pain Branch (scale 4-6) for up to 60 days. gabapentin 2021-09- No [id number] 300mg Take 1 [facility] 300 mg 0-15 12-15 capsule by ity of capsule 00:00: 05:59 mouth as [place] 00 :00 needed for Medical Pain Branch (scale 4-6) for up to 60 days. gabapentin 2021-09- No [id number] 300mg Take 1 [facility] 300 mg 0-15 12-15 capsule by ity of capsule 00:00: 05:59 mouth as [place] 00 :00 needed for Medical Pain Branch (scale 4-6) for up to 60 days. amitriptyli 2021-09- No [id number] 100mg Take 2 Univers ne 50 mg 0-15 10-23 tablets by ity of tablet 00:00: 04:59 mouth at [place] 00 :00 bedtime Medical for 7 Branch days. amitriptyli 2021-09- No [id number] 100mg Take 2 [facility] ne 50 mg 0-15 10-23 tablets by ity of tablet 00:00: 04:59 mouth at [place] 00 :00 bedtime Medical for 7 Branch days. amitriptyli 2021-09- No [id number] 100mg Take 2 Univers ne 50 mg [...] No CONTINUOUS Univers 1000 mg in 0-24 06- PRN, ity of NS 200 mL 13:30: 13:30 Starting [place] as RTU IV 55 :55 on [facility] Medical Piggyback 06/24/22 Branch at 0830, Until 06/24/22 at 0830, Administer over 60 Minutes, CV Intraproce dure metFORMIN 2021-09 Yes 500mg 500 mg, Univ ers (GLUCOPHAGE 0-13 Oral, BID ity of ) tablet 22:00: MEALS, [place] 500 mg 00 First dose Medical on [facility] 06/23/22 at 1700, Until Discontinu ed, Routine metFORMIN 2021-09- No 500mg 500 mg, Uni vers (GLUCOPHAGE 0-23 06- Oral, BID it y of ) tablet 22:00: 21:09 MEALS, [place] 500 mg 00 :41 First dose Medical on [facility] 06/23/22 at 1700, Until Discontinu ed, Routine amLODIPine 2021-09- No 5mg 5 mg, Unive rs (NORVASC) 0-23 06- Oral, ity of tablet 5 mg 16:52: 17:31 ONCE, 1 [place] 00 :[place] dose, On [facility] 06/23/22 at 1200, Routine captopriL 2021-09- No 12.5mg 12.5 mg, U nivers (CAPOTEN) 0-23 06- Oral, ity of tablet 12.5 04:45: 04:56 ONCE, 1 [place] mg 00 :00 dose, On [facility] 06/22/22 at 2345, Routine labetaloL 2021-09- No 5mg 5 mg, Slow U nivers (NORMODYNE) 0- 10- IV Push, ity of injection 5 03:45: 03:12 ONCE, 1 [place] mg 00 :00 dose, On [facility] 06/22/22 at 2245, Routine vitamin 2021-09- No 1000ug 1,000 mcg, U nivers B-12 0- 10-15 Oral, ity of (CYANOCOBAL 20:15: 12:15 DAILY, [place] as CODY) 00 :01 First dose Medical tablet (after Branch 1,000 mcg last modificati on) on Mon06/22/22 at 1515, Until Discontinu ed, Routine tamsulosin 2021-09 No .4mg 0.4 mg, Uni vers (FLOMAX) 012 10-15 Oral, ity of capsule 0.4 16:30: 12:15 DAILY, [place] mg 00 :01 First dose Medical on [place] Branch 06/22/22 at 1130, Until Discontinu ed, Routine pantoprazol 2021-09 Yes 40mg 40 mg, Univ ers e 0-12 Oral, ity of (PROTONIX) 14:00: DAILY, [place] EC tablet 00 First dose Medi joyce 40 mg on Mon Branch 06/22/22 at 0900, Until Discontinu ed, Routine pantoprazol 2021-09 No 40mg 40 mg, Uni vers e 0-12 -15 Oral, ity of (PROTONIX) 14:00: 21:09 DAILY, [...] :53 dose, On Medic al 0.9% (NS) [facility] Branch 100 mL IV 06/22/22 piggyback at 0815, Administer over 15 Minutes, 100 mL magnesium 2021-09 No 4g 4 g, IV Univ ers sulfate in 06-22 Piggyback, it y of water 4 12:15: 15:48 at 25 [place] gram/50 mL 00 :01 mL/hr Medical (8 %) IV Administer Branc h Piggyback 4 over 120 g Minutes, ONCE, 1 dose, On [facility] 06/22/22 at 0715, Routine amLODIPine 2021-09 No 5mg 5 mg, Unive rs (NORVASC) 0-12 10-13 Oral, ity of tablet 5 mg 08:30: 16:53 DAILY, [place] 00 :37 First dose Medical on [facility] 06/22/22 at 0330, Until Discontinu ed, Routine melatonin 2021-09 Yes 3mg 3 mg, Univers (MELATIN) 0-12 Oral, QHS, ity of tablet 3 mg 02:00: First dose [place] 00 on [facility] 06/21/22 [place] at 2100, Until Discontinu ed, Routine melatonin 2021-09 No 3mg 3 mg, Univer s (MELATIN) 0-12 10-15 Oral, QHS, ity of tablet 3 mg 02:00: 21:09 First dose [place] 00 :41 on [facility] 06/21/22 [place] at 2100, Until Discontinu ed, Routine hydrOXYzine 2021-09 No 10mg 10 mg, Uni vers (ATARAX) 0-12 10-12 Oral, ity of tablet 10 02:00: 01:08 ONCE, [place] mg 00 :00 dose, On [facility] 06/21/22 at 2100, Routine enoxaparin 2021-09 Yes 40mg 40 mg, Unive rs (LOVENOX) 0-11 Subcutaneo ity of injection 22:00: [place], [place]ILY, [place] 40 mg 00 First dose Medical on [facility] 06/21/22 at 1700, Until Discontinu ed, Routine enoxaparin 2021-09 No 40mg 40 mg, Univ ers (LOVENOX) 0-11 10-15 Subcutaneo ity of injection 22:00: 21:09 [place], DAILY, [place] 40 mg 00 :41 First dose Medical on [facility] 06/21/22 at 1700, Until Discontinu ed, Routine hydroCHLORO 2021-09 No 25mg 25 mg, Uni vers thiazide 0-11 10-11 Oral, ity of (ESIDRIX) 19:00: 20:35 DAILY, [place] tablet 25 00 :31 First dose Medi joyce mg (after Branch last modificati on) on [facility] 06/21/22 at 1400, Until Discontinu ed, Routine Sliding 2021-09 Yes Subcutaneo Univ ers Scale 0-11 us, TID ity of Insulin - 17:00: MEALS+HS, [place] as Lispro 00 First dose Medical (HumaLOG) + on [facility] 06/21/22 Testing at 1200, Until Discontinu ed, Routine Sliding 2021-09 No Subcutaneo Uni vers Scale 0-11 10-15 us, TID ity of Insulin - 17:00: 21:09 MEALS+HS, [place] Lispro 00 :41 First dose Medical (HumaLOG) + [facility] Testing at 1200, Until Discontinu ed, Routine sulfur 2021-09- No [id number] 5mL 5 mL, Unive rs hexafluorid 0-11 10-11 Intravenou i ty of e microsphr 17:00: 17:00 s, ONCE, 1 [place] (LUMASON) 00 :00 dose, On Medica l injection 5 [facility] mL 06/21/22 at 1200, Routine
cruise staff member approving Restricted medication : WILTON NICHOLAS enalapril 2021-09 Yes 20mg 20 mg, Univer s (VASOTEC) 0-11 Oral, BID, ity of tablet 20 16:00: [place] dose [place] 00 on [facility] 06/21/22 Branch at 1100, Until Discontinu ed, Routine enalapril 2021-09- No 20mg 20 mg, Unive rs (VASOTEC) 0-11 10-15 Oral, BID, ity of tablet 20 16:00: 21:09 First dose [place] mg 00 :41 on [facility] 06/21/22 Branch at 1100, Until Discontinu ed, Routine dextrose 2021-09 Yes 250mL 250 mL, IV Un te[place] 10% (D10W) 0-11 Infusion, ity of bolus 15:42: PRN - SEE [place] infusion 37 INSTRUCTIO Medic al 250 mL [...] 34 Starting Medical injection 1 on Mon [facility] 06/21/22 at 1042, Until Discontinu ed, YOKO, Blood Glucose < or = 70 mg/dL and patient is unable to swallow or has mental changes. glucagon 2021-09- No 1mg 1 mg, Univers (GLUCAGEN 0-11 10-15 Intramuscu ity of DIAGNOSTIC 15:42: 21:09 lar, PRN, [place] KIT) 34 :41 Starting Medical injection 1 on [facility] mg 06/21/22 at 1042, Until 06/25/22 at 1609, YOKO, Blood Glucose < or = 70 mg/dL and patient is unable to swallow or has mental changes. acetaminoph 2021-09 Yes 650mg 650 mg, Un teo en 0-11 Oral, ity of (TYLENOL) 15:21: Q6HPRN, [place] tablet 650 10 Starting Medic al mg on [facility] 06/21/22 at 1021, Until Discontinu ed, Routine, Pain (scale 1-3) acetaminoph 2021-09- No 650mg 650 mg, U nivers en 0-11 - Oral, ity of (TYLENOL) 15:21: 21:09 Q6HPRN, [place] tablet 650 10 :41 Starting Medic al mg on [facility] 06/21/22 at 1021, Until 06/25/22 at 1609, Routine, Pain (scale 1-3) melatonin 2021-09- No 3mg 3 mg, Univer s (MELATIN) 0-06-21 Oral, ity of tablet 3 mg 09:15: 08:30 ONCE, 1 [place] 00 :[place] dose, On [facility] 06/21/22 at 0415, Routine aspirin 2021-09- No 325mg 325 mg, Unive rs E.C. 0-06-21 Oral, ity of (ECOTRIN) 08:30: 08:30 ONCE, 1 [place] tablet 325 00 :00 dose, On Medic al mg [facility] 06/21/22 at 0330, STAT atenoloL 2021-09- No 100mg 100 mg, Univ ers (TENORMIN) 006-21 Oral, ity of tablet 100 03:00: 02:13 ONCE, 1 [place] as mg 00 :00 dose, On [facility] 06/20/22 at 2200, Routine cloNIDine 2021-09- No .2mg 0.2 mg, Univ ers (CATAPRES) 0-06-21 Oral, ity of tablet 0.2 02:15: 02:14 ONCE, 1 [place] as mg 00 :00 dose, On [facility] Branch 06/20/22 at 2115, STAT iopamidol 2021-09- No [id number] 150mL 150 mL, Univers (ISOVUE 0-10 10-10 Intravenou ity o f 370-500 mL) 21:15: 21:15 s, ONCE, 1 [place] injection 00 :00 dose, On Medica l 150 mL [facility] Branch 06/20/22 at 1615, Routine acetaminoph 2021-09- No 1000mg 1,000 mg, Univers en 0-10 10-10 Oral, ity of (TYLENOL) 21:00: 20:46 ONCE, [place] tablet 00 :00 dose, On Medical 1,000 mg [facility] Branch 06/20/22 at 1600, YOKO piperacilli 2021-09 No 3.375g 3.375 g, Univers n-tazobacta 0-10 10-11 IV ity of m (ZOSYN) 19:30: 18:13 Piggyback, [place] 3.375 g in 00 :39 Q8H ABX, Medic al NaCl 0.9% First dose Bran ch (NS) 100 mL on [facility] MINI-BAG 06/20/22 at 1430, Until Discontinu [...] Medical Piggyback, Branch ONCE, 1 dose, On [facility] 06/20/22 at 1430, STAT tamsulosin 2021- No .4mg Take 0.4 Un teo 0.4 mg 24 9-19 10-15 mg by ity of hr capsule 00:00: 00:00 mouth [place] 00 :00 the Medical morning. Branch tamsulosin 0 2021- No .4mg Take 0.4 Un teo [...] TO MAKE AN APPOINTMEN T clopidogreL 2021-0 2021- No TAKE 1 Uni vers 75 [...] glargine 7-19 Units [facility] (LANTUS 00:00: subcutaneo [facility] joyce SOLOSTAR 00 usly Center U-100 nightly. INSULIN) 100 unit/mL (3 mL) InPn insulin 2019-0 Yes 15U QD Inject 15 [facility] gl[facility]ine [facility] Units [facility] (LANTUS 00:00: subcutaneo [facility] joyce SOLOSTAR 00 usly Center U-100 nightly. INSULIN) 100 unit/mL (3 mL) InPn insulin 2019-0 Yes 15U QD Inject 15 [facility] glargine 7-19 Units [facility] (LANTUS 00:00: subcutaneo [facility] joyce SOLOSTAR 00 usly Center U-100 nightly. INSULIN) 100 unit/mL (3 mL) InPn insulin 2020-0 Yes 15U QD Inject 15 [facility] glargine 7-19 Units [facility] (LANTUS 00:00: subcutaneo [facility] joyce SOLOSTAR 00 usly Center U-100 nightly. INSULIN) 100 unit/mL (3 mL) InPn insulin 2020-0 Yes 15U QD Inject 15 [facility] glargine 7-19 Units [facility] (LANTUS 00:00: subcutaneo [facility] joyce SOLOSTAR 00 usly Center U-100 nightly. INSULIN) 100 unit/mL (3 mL) In insulin Yes 15U QD Inject 15 [facility] glargine 7-19 Units [facility] (LANTUS 00:00: subcutaneo Medi joyce SOLOSTAR 00 usly Center U-100 nightly. INSULIN) 100 unit/mL (3 mL) In insulin Yes 15U QD Inject 15 [facility] glargine 7-19 Units [facility] (LANTUS 00:00: subcutaneo [facility] joyce SOLOSTAR 00 usly Center U-100 nightly. INSULIN) 100 unit/mL (3 mL) In insulin Yes 15U QD Inject 15 [facility] glargine 7-19 Units [facility] (LANTUS 00:00: subcutaneo Medi joyce SOLOSTAR 00 usly Center U-100 nightly. INSULIN) 100 unit/mL (3 mL) In insulin Yes 15U QD Inject 15 [facility] glargine 7-19 Units [facility] (LANTUS 00:00: subcutaneo [facility] joyce SOLOSTAR 00 usly Center U-100 nightly. INSULIN) 100 unit/mL (3 mL) In Insulin 2022- No 15U inject 15 Univ ers Glargine 7-29 09-26 Units ity of 100 unit/mL 00:00: 00:00 under the [place] (3 mL) 00 :00 skin. Medical injection Branch Insulin 2022- No 15U inject 15 Univ ers Glargine -29 09-26 Units ity of 100 unit/mL 00:00: 00:00 under the [place] (3 mL) 00 :00 skin. Medical injection Branch Insulin 2022- No 15U inject 15 Univ ers Glargine 7-29 09-26 Units ity of 100 unit/mL 00:00: 00:00 under the [place] (3 mL) 00 :00 skin. Medical injection Branch Insulin 2022- No 15U inject 15 Univ ers Glargine -29 09-26 Units ity of 100 unit/mL 00:00: 00:00 under the [place] (3 mL) 00 :00 skin. Medical injection Branch memantine 2020- No 5mg Q.5D Take 1 [facility] (NAMENDA) 5 7-19 07- tablet (5 Corina kes MG tablet 00:00: 23:59 mg total) Me dical 00 :00 by mouth 2 Center (two) times daily. memantine 2020- No 5mg Q.5D Take 1 [facility] (NAMENDA[facility] 5 03-29- tablet (5 Corina kes MG tablet 00:00: 23:59 mg total) Me dical 00 :00 by mouth 2 Center (two) times daily. [facility] 10 Yes 10mg QD Take [address] [facility] mg tablet 7-09 by mouth [facility] 00:00: daily. [address] 10 Yes 10mg QD Take [address] mg tablet 7-09 by mouth [facility] 00:00: daily. [address] 10 Yes 10mg QD Take [address] mg tablet 7-09 by mouth [facility] 00:00: daily. [address] 10 Yes 10mg QD Take [address] mg tablet 7-09 by mouth [facility] 00:00: daily. [address] 10 Yes 10mg QD Take [address] mg tablet 7-09 by mouth [facility] 00:00: daily. [address] 10 Yes 10mg QD Take [address] mg tablet 7-09 by mouth [facility] 00:00: daily. [address] 10 Yes 10mg QD Take [address] mg tablet 7-09 by mouth [facility] 00:00: daily. [address] 10 Yes 10mg QD Take [address] mg tablet 7-09 by mouth [facility] 00:00: daily. [address] 10 Yes 10mg QD Take [address] mg tablet 7-09 by mouth [facility] 00:00: daily. [address] 10 Yes 10mg QD Take [address] [facility] mg tablet 7-09 by mouth [facility] 00:00: daily. [address] simvastatin 2019-0 Yes 20mg QD Take [address] [facility] [facility] (ZOCOR) 20 5-13 by mouth [facility] MG tablet 00:00: nightly. [address] tamsulosin 2019-0 Yes .4mg Take 0.[address] [facility] [facility] (FLOMAX) 5-13 mg by [facility] 0.4 mg Cap 00:00: mouth Medica l 24 hr 00 Daily Center capsule (1800). simvastatin 2020-0 Yes 20mg QD Take [address] [facility] (ZOCOR) 20 5-13 by mouth [facility] MG tablet 00:00: nightly. [address] tamsulosin 2020-0 Yes .4mg Take 0.[address] [facility] [facility] (FLOMAX) 5-13 mg by [facility] 0.4 mg Cap 00:00: mouth Medica l 24 hr 00 Daily Center capsule (1800). simvastatin 2020-0 Yes 20mg QD Take [address] [facility] (ZOCOR) 20 5-13 by mouth [facility] MG tablet 00:00: nightly. [address] tamsulosin 2020-0 Yes .4mg Take 0.[address] (FLOMAX) 5-13 mg by [facility] 0.4 mg Cap 00:00: mouth Medica l 24 hr 00 Daily Center capsule (1800). simvastatin 2020-0 Yes 20mg QD Take [address] [facility] (ZOCOR) 20 5-13 by mouth [facility] MG tablet 00:00: nightly. [address] tamsulosin 2020-0 Yes .4mg Take 0.[address] (FLOMAX) 5-13 mg by [facility] 0.4 mg Cap 00:00: mouth Medica l 24 hr 00 Daily Center capsule (1800). simvastatin 2020-0 Yes 20mg QD Take [address] (ZOCOR) 20 5-13 by mouth [facility] MG tablet 00:00: nightly. [address] tamsulosin 2020-0 Yes .4mg Take 0.[address] (FLOMAX) 5-13 mg by [facility] 0.4 mg Cap 00:00: mouth Medica l 24 hr 00 Daily Center capsule (1800). simvastatin 2020-0 Yes 20mg QD Take [address] (ZOCOR) 20 5-13 by mouth [facility] MG tablet 00:00: nightly. [address] tamsulosin 2020-0 Yes .4mg Take 0.[address] (FLOMAX) 5-13 mg by [facility] 0.4 mg Cap 00:00: mouth Medica l 24 hr 00 Daily Center capsule (1800). simvastatin 2020-0 Yes 20mg QD Take [address] (ZOCOR) 20 5-13 by mouth [facility] MG tablet 00:00: nightly. [address] tamsulosin 2020-0 Yes .4mg Take 0.[address] (FLOMAX) 5-13 mg by [facility] 0.4 mg Cap 00:00: mouth Medica l 24 hr 00 Daily Center capsule (1800). simvastatin 2020-0 Yes 20mg QD Take [address] (ZOCOR) 20 5-13 by mouth [facility] MG tablet 00:00: nightly. [address] tamsulosin 2020-0 Yes .4mg Take 0.[address] [facility] (FLOMAX) 5-13 mg by [facility] 0.4 mg Cap 00:00: mouth Medica l 24 hr 00 Daily Center capsule (1800). simvastatin 2020-0 Yes 20mg QD Take [address] (ZOCOR) 20 5-13 by mouth [facility] MG tablet 00:00: nightly. [address] tamsulosin 2020-0 Yes .4mg Take 0.[address] (FLOMAX) 5-13 mg by [facility] 0.4 mg Cap 00:00: mouth Medica l 24 hr 00 Daily Center capsule (1800). simvastatin 2020-0 Yes 20mg QD Take [address] (ZOCOR) 20 5-13 by mouth [facility] MG tablet 00:00: nightly. [address] tamsulosin 2020-0 Yes .4mg Take 0.[address] [facility] (FLOMAX) 5-13 mg by [facility] 0.4 mg Cap 00:00: mouth Medica l 24 hr 00 Daily Center capsule (1800). omeprazole 2020-0 Yes 20mg QD Take [address] (PRILOSEC) 5-04 by mouth [facility] 20 MG 00:00: daily. Medical capsule [address] [place] [address] omeprazole 2020-0 Yes 20mg QD Take [address] (PRILOSEC) 5-04 by mouth [facility] 20 MG 00:00: daily. Medical capsule [address] [place] [address] omeprazole 2020-0 Yes 20mg QD Take [address] (PRILOSEC) 5-04 by mouth [facility] 20 MG 00:00: daily. Medical capsule [address] [place] [address] omeprazole 2020-0 Yes 20mg QD Take [address] (PRILOSEC) 5-04 by mouth [facility] 20 MG 00:00: daily. Medical capsule [address] [place] [address] omeprazole 2020-0 Yes 20mg QD Take [address] (PRILOSEC) 5-04 by mouth [facility] 20 MG 00:00: daily. Medical capsule [address] [place] [address] omeprazole 2020-0 Yes 20mg QD Take [address] (PRILOSEC) 5-04 by mouth [facility] 20 MG 00:00: daily. Medical capsule [address] [place] [address] omeprazole 2020-0 Yes 20mg QD Take [address] (PRILOSEC) 5-04 by mouth [facility] 20 MG 00:00: daily. Medical capsule [address] [place] [address] omeprazole 2020-0 Yes 20mg QD Take [address] (PRILOSEC) 5-04 by mouth [facility] 20 MG 00:00: daily. Medical capsule [address] [place] [address] omeprazole 2020-0 Yes 20mg QD Take [address] (PRILOSEC) 5-04 by mouth [facility] 20 MG 00:00: daily. Medical capsule [address] [place] [address] omeprazole 2020-0 Yes 20mg QD Take [address] (PRILOSEC) 5-04 by mouth [facility] 20 MG 00:00: daily. [address] fLUoxetine 0 Yes 20mg QD Take [address] (PROZAC) 20 8-23 by mouth [facility] MG capsule 00:00: daily. [address] melatonin 3 Yes 3mg QD Take [address] mg Tab 8-23 by mouth [facility] tablet 00:00: nightly. [address] 3 0 Yes 3mg QD Take [address] mg Tab 8-23 by mouth [facility] tablet 00:00: nightly. [address] fLUoxetine Yes 20mg QD Take [address] (PROZAC) 20 8-23 by mouth Luke s MG capsule 00:00: daily. [address] melatonin 3 0 Yes 3mg QD Take [address] mg Tab 8-23 by mouth [facility] tablet 00:00: nightly. [address] fLUoxetine 0 Yes 20mg QD Take [address] (PROZAC) 20 8-23 by mouth Luke s MG capsule 00:00: daily. Medic [address] 3 0 Yes 3mg QD Take [address] mg Tab 8-23 by mouth [facility] tablet 00:00: nightly. [address] fLUoxetine 0 Yes 20mg QD Take [address] (PROZAC) 20 8-23 by mouth Luke s MG capsule 00:00: daily. [facility] [address] [place] [address] melatonin 3 Yes 3mg QD Take [address] mg Tab 8-23 by mouth [facility] tablet 00:00: nightly. [address] fLUoxetine Yes 20mg QD Take [address] (PROZAC) 20 8-23 by mouth Luke s MG capsule 00:00: daily. [address] 3 Yes 3mg QD Take [address] mg Tab 8-23 by mouth [facility] tablet 00:00: nightly. [address] fLUoxetine Yes 20mg QD Take [address] (PROZAC) 20 8-23 by mouth Luke s MG capsule 00:00: daily. [address] 3 Yes 3mg QD Take [address] mg Tab 8-23 by mouth [facility] tablet 00:00: nightly. [address] fLUoxetine Yes 20mg QD Take [address] (PROZAC) 20 8-23 by mouth Luke s MG capsule 00:00: daily. [address] 3 Yes 3mg QD Take [address] mg Tab 8-23 by mouth [facility] tablet 00:00: nightly. [address] fLUoxetine Yes 20mg QD Take [address] (PROZAC) 20 8-23 by mouth Luke s MG capsule 00:00: daily. [address] 3 Yes 3mg QD Take [address] mg Tab 8-23 by mouth [facility] tablet 00:00: nightly. [address] fLUoxetine Yes 20mg QD Take [address] (PROZAC) 20 8-23 by mouth Luke s MG capsule 00:00: daily. [facility] [address] [place] [address] 3 Yes 3mg QD Take [address] mg Tab 8-23 by mouth [facility] tablet 00:00: nightly. [address] fLUoxetine Yes 20mg QD Take [address] (PROZAC) 20 8-23 by mouth Luke s MG capsule 00:00: daily. [address] bisacodyl Yes 10 mg = 1 Mem oria 10 mg 6-19 supp, IN, l rectal 21:04: Daily, PRN Elyse nn suppository 00 Constipati on, 0 Refill(s) Docusate Yes 100 mg = 1 Mem oria Sodium 100 6-19 cap, PO, l MG Oral 21:04: Q12H, 0 [place] Capsule 00 Refill(s) atorvastati Yes 10 mg = 1 M emoria n 10 mg 6-19 tab, PO, l oral tablet 21:04: Bedtime, 0 [place] 00 Refill(s) sennosides, Yes 8.6 mg = 1 Memoria [facility] 8.6 MG 6-19 tab, PO, l Oral Tablet 21:04: Q12H, 0 Her antonio 00 Refill(s) levofloxaci Yes 500 mg = 1 Memoria n 500 mg 6-19 tab, PO, l oral tablet 21:04: [id number], 0 [place] 00 Refill(s) Humalog No Notes: Memoria 6-18 (Same as: l 16:30: Humalog ) [place] 00 Roll in palms of hands gently; Do not shake `vigorousl y. "Single Patient Use Only " WASTE: F/P - Black; E - Municipal Trash Bin Stable for 28 days at room temperatur e. Expires in days from ____Date Insulin No Notes: Memoria Glargine -18 Same as: l 100 UNT/ML 14:00: Lantus) Do H ermann Injectable 00 not hold Solution insulin [Lantus] without contacting prescriber WASTE: F/P - Black; E - Municipal Trash Bin potassium No Notes: Memori a chloride 20 -17 (Same as: l mEq oral 14:35: K-Dur 20) Herm roxanne tablet, 00 "Do Not extended Crush" For release patients unable to swallow tablet, dissolve in one half glass of water. Allow about 2 minutes for the tablets to disintegra te. Stir before giving to prepare slurry and administer . Please exclude Patient s with feeding tube less than 14 Colombian (Dobhoff, J-tube etc) and pediatric and patients. With food and full glass of water insulin, No Notes: Memoria isophane 6-16 Roll in l 23:02: palms of [place] 00 hands gently; Do not shake vigorously . (Same as: Humulin N) Do not hold insulin without contacting prescriber WASTE: F/P - Black; E - Municipal Trash Bin Stable for 28 days at room temperatur e Expires in days from ____Date Humalog 0 No Notes: Memoria -16 (Same as: l 21:30: Humalog ) Roll in palms of hands gently; Do not shake `vigorousl y. "Single Patient Use Only " WASTE: F/P - Black; E - Municipal Trash Bin Stable for 28 days at room temperatur e. Expires in days from ____Date Insulin, 0 No 4 unit, Memori a Aspart, 02-24 Route: l Human 21:30: SUB-Q, [place] TID-Before Meals, Dosing Weight 81.9, kg, Start date: 02/24/18 16:30:00 CDT, Duration: 30 day, Stop date: 03/26/18 11:30:00 CDT Lasix No Notes: Memoria 02-24 (Same as: l 20:54: Lasix) MEDICATION WASTE Product Size: 40 mg Product Wasted: ___ mg Potassium No Notes: Memori a Chloride 02-24 (Same as: l 12:00: KCL) Infuse over 2 hours. Levofloxaci No 500 mg, 1 M emoria n 16 tab, l 11:49: Route: PO, [place] 00 Drug form: TAB, [id number], Dosing Weight 81.9, kg, Priority: NOW, Start date: 02/24/18 6:49:00 CDT, Duration: 5 day, Stop date: 02/28/18 6:49:00 CDT, ABX Indication : Urinary Tract Infection potassium No 40 mEq, 2 Mem oria chloride 20 16 tab, l mEq oral 11:47: Route: PO, Her antonio tablet, 00 Drug form: extended ERTAB, release Q4H, Dosing Weight 81.9, kg, Priority: NOW, Start date: 02/24/18 6:47:00 CDT, Duration: 30 day, Stop date: 03/26/18 4:00:00 CDT Magnesium No Notes: Memori a Sulfate 40 6-16 WASTE: F/P l MG/ML 11:47: - Sink; E [place] Injection - Municipal Trash Bin Potassium No Notes: Memori a Chloride 6-16 (Same as: l 07:49: KCL) [place] 00 Infuse over 2 hours. Potassium No Notes: Memori a Chloride 6-16 (Same as: l 07:47: K-Dur 20) Aust[place] 00 "Do Not Crush" For patients unable to swallow tablet, dissolve in one half glass of water. Allow about 2 minutes for the tablets to disintegra te. Stir before giving to prepare slurry and administer . Please exclude Patient s with feeding tube less than 14 Colombian (Dobhoff, J-tube etc) and pediatric and patients. [...] Chloride 6-16 (Same as: l 07:28: KCL) [place] 00 Infuse over 2 hours. Magnesium No Notes: Memori a Sulfate 6-16 WASTE: F/P l 07:28: - Sink; E [place] - Municipal Trash Bin sodium No 15 mmol, 5 Memor ia phosphate 6-16 mL, Route: l 07:28: IVPB, PRN, [place] 00 Dosing Weight 81.9, kg, PRN Abnormal Lab Result, For NON-ICU Patients Only., Start date: 02/24/18 2:28:00 CDT, Duration: 30 day, Stop date: 03/26/18 2:27:00 CDT potassium No Notes: Memori a phosphate 6-16 (Same as: l 07:28: K [place] 00 Phosphate. ) 1 mMol phoshate has 1.47 mEq potassium Infuse over 4 hours Calcium No Notes: Memoria Gluconate 16 WASTE: F/P l 07:28: - Sink; E - Municipal Trash Bin Magnesium No Notes: Memori a Oxide 16 (Same as: l 07:28: Mag-Ox 400) Magnesium oxide [id number] g elemental magnesium Dose=____m g magnesium oxide [...] POLYETHYLEN No Notes: Dirk reji E GLYCOL -15 Dissolve l 3350 13:13: in 8 oz [...] No Notes: Memori a 400 MG Oral - (Same as: l Tablet 21:30: Motrin) "Do Not Crush" Give with food. Bisacodyl No 10 mg, Memori a 6-13 Route: IN, l 14:02: Drug form: SUPP, ONCE, Dosing [...] 50 Memoria 6-13 ml/min), l 12:00: Start Austyn date: 02/21/18 7:00:00 CDT, Duration: 7 day, [...] Bin Tylenol No 1,000 mg, Memor ia 02-21 Route: PO, l 11:00: Q6H, [place] Dosing Weight 81.9, kg, Start date: 02/21/18 6:00:00 CDT, Duration: 30 day, Stop date: 03/23/18 0:00:00 CDT Lasix No Notes: Memoria 6-13 (Same as: l 10:02: Lasix) Water 1000 No 457.25 mL, M emoria MG/ML 02-21 Rate: 500 l Injectable 09:07: ml/hr, Elyse [...] ONLY potassium No Notes: Memori a phosphate - (Same as: l 05:41: K [place] 00 Phosphate. ) 1 mMol phoshate has 1.47 mEq potassium Infuse over 4 hours Potassium No Notes: Memori a Chloride - (Same as: l 05:41: Potassium [place] 00 Chloride) Calcium No Notes: Memoria Carbonate - (Same As: l 500 MG 05:41: Tums) Austyn Chewable 00 Calcium Tablet Carbonate 500 mg = 200 mg elemental calcium Dose = mg calcium carbonate ( mg elemental calcium) Magnesium No Notes: Memori a Sulfate 02-21 WASTE: F/P l 05:41: - Sink; E [place] 00 - Municipal Trash Bin potassium No Notes: Memori a phosphate-s - (Same as: l odium 05:41: Phos-NaK) [place] phosphate 00 Each 1.5 250 mg-280 gm pkt has mg-160 mg 250mg oral powder phosphorou for s. Mix reconstitut w/2.5oz ion water and stir. Calcium No Notes: Memoria Gluconate - WASTE: F/P l 05:41: - Sink; E [place] 00 - Municipal Trash Bin Magnesium No Notes: Memori a Oxide 6-13 (Same as: l 05:41: Mag-Ox [place] 00 400) Magnesium oxide 701hf=634f g elemental magnesium Dose=____m g magnesium oxide (___mg elemental magnesium) Nicardipine No Notes: Dirk reji - Same as: l 05:40: Cardene Concentrat ion: (0.1 mg/ 1 ml) Sodium No 1,000 mL, Memori a Chloride 02-21 Rate: 75 l 0.9% IV 05:40: ml/hr, [place] 1,000 mL 00 Infuse over: 13.3 hr, [...] Memoria 02-21 (Same As: l 05:00: Maxipime) MEDICATION WASTE Product Size: 1000 mg Product Wasted: ___ mg Lisinopril No Notes: Memor ia - (Same as: l 02:00: PrinAustyn amaro Zestril) atorvastati No Notes: Dirk reji n 02-21 (Same As: l 02:00: Lipitor) heparin No Notes: Memoria sodium, 02-20 porcine l porcine 21:00: heparin [place] 2500 UNT/ML 00 Injectable Solution Tramadol No 50 mg, 1 Memor ia 02-20 tab, l 19:45: Route: PO, Drug form: TAB, Q6H, Dosing Weight 81.9, kg, PRN Pain Score 4-6, Start date: 02/20/18 14:45:00 CDT, Duration: 30 day, Stop date: 03/22/18 14:44:00 CDT Acetaminoph No Notes: Do M emoria en 02-20 not exceed l 19:42: 4 gm/day. [place] 00 (Same as: Tylenol) Insulin No Notes: Memoria Lispro 6-12 (Same as: l 14:44: Humalog ) Roll in palms of hands gently; Do not shake `vigorousl y. "Single Patient Use Only " WASTE: F/P - Black; E - Municipal Trash Bin Stable for 28 days at room temperatur e. Expires in days from ____Date Glucagon 2018- No 1 mg, Memoria 6-12 Route: IM, l 14:44: Drug form: PDR/INJ, [...] day, Stop date: 03/22/18 9:43:00 CDT Fluoxetine 2017- No Notes: Memor ia 6-12 (Same as: [...] sugammadex No Route: IV, M emoria (ANES) 6-11 Drug form: l 14:34: SOLN, 00 ONCE, Stop date: 02/19/18 9:34:00 CDT sugammadex No Notes: Memor ia 6-11 (Same as: l 14:23: Bridion) sugammadex No Notes: Memor ia 6-11 (Same as: l 14:01: Bridion) nebivolol No Notes: Memori a 6-11 (same as: l 14:00: Bystolic) Amlodipine No Notes: Memor ia 6-11 (Same as: l 14:00: Norvasc) Saline No Notes: Memoria Flush 0.9% 6-11 (Same as: l 14:00: BD Posiflush) Docusate No Notes: Memoria 6-11 (Same as: l 14:00: Colace) (Do Not Crush) sennosides, No Notes: Dirk reji [facility] 6-11 (Same as: l 14:00: Senokot) Levetiracet [...] ceFAZolin No Route: IV, Me moria (ANES) 6-11 Drug form: l 13:40: INJ, ONCE, Stop date: 02/19/18 8:40:00 CDT fentaNYL No Route: IV, Mem oria (ANES) 6-11 Drug form: l 13:40: INJ, ONCE, Stop date: 02/19/18 8:40:00 CDT phenylephri 2017- No Route: IV, Memoria ne (ANES) 02-19 Drug form: l 13:40: INJ, ONCE, Stop date: 02/19/18 8:40:00 CDT rocuronium No Route: IV, M emoria (ANES) 02-19 Drug form: l 13:40: INJ, ONCE, Stop date: 02/19/18 8:40:00 CDT propofol No Route: IV, Mem oria (ANES) 02-19 Drug form: l 13:40: INJ, ONCE, Stop date: 02/19/18 8:40:00 CDT lidocaine No Route: IV, Me moria (ANES) 02-19 Drug form: l 13:40: INJ, ONCE, Stop date: 02/19/18 8:40:00 CDT Sodium No Route: IV, Memor ia Chloride 02-19 Total l 0.9% IV 13:32: Volume: [place] (ANES) 1000 00 1,000, mL Start date: 02/19/18 8:32:00 CDT, Stop date: 02/19/18 9:32:00 CDT Hydralazine 2017-0 No 10 mg, Dirk reji 02-19 Route: l 13:29: IVP, [place] 00 Q20Min, Dosing Weight 81.9, kg, PRN Elevated BP, Start date: 02/19/18 8:29:00 CDT, Duration: 2 doses or times, Stop date: Limited # of times Labetalol 2017-0 No 10 mg, Memori a 02-19 Route: l 13:29: IVP, Austyn 00 Q5Min, Dosing Weight 81.9, kg, PRN Elevated BP, Start date: 02/19/18 8:29:00 CDT, Duration: 5 doses or times, Stop date: Limited # of times Oxycodone 2017-0 No 5 mg, Memoria 02-19 Route: PO, l 13:29: Drug form: Austyn 00 TAB, Q4H, Dosing Weight 81.9, kg, PRN Pain Score 4-6, Start date: 02/19/18 8:29:00 CDT, Duration: 30 day, Stop date: 03/21/18 8:28:00 CDT Metoprolol 2018-0 No 1 mg, Memori a 02-19 Route: l 13:29: IVP, Austyn 00 Q5Min, Dosing Weight 81.9, kg, PRN Other -See Comment, Start date: 02/19/18 8:29:00 CDT, Duration: 5 doses or times, Stop date: Limited # of times Acetaminoph 2018-0 No 1,000 mg, M emoria en 11 Route: PO, l 13:29: Drug form: Austyn 00 TAB, ONCE, Dosing Weight 81.9, kg, PRN Pain Score 1-3, Start date: 02/19/18 8:29:00 CDT Fentanyl 2018-0 No 50 Memoria 6-11 microgram, l 13:29: Route: [place] 00 IVP, Q5Min, Dosing Weight 81.9, kg, PRN Pain Score 7-10, Priority: Routine, Start date: 02/19/18 8:29:00 CDT, Duration: 2 doses or times, Stop date: Limited # of times Hydromorpho 2018-0 No 0.5 mg, Mem oria ne 02-19 Route: l 13:29: IVP, [place] 00 Q5Min, Dosing Weight 81.9, kg, PRN Pain Score 7-10, Start date: 02/19/18 8:29:00 CDT, Duration: 4 doses or times, Stop date: Limited # of times Ondansetron 2018-0 No 4 mg, Memor ia 02-19 Route: l 13:29: IVP, ONCE, Aust[place] 00 Dosing Weight 81.9, kg, PRN Nausea & Vomiting, Start date: 02/19/18 8:29:00 CDT Naloxone 2018-0 No 0.4 mg, Memori a 02-19 Route: l 13:29: IVP, [place] 00 Q2MIN, Dosing Weight 81.9, kg, PRN Narcotic Reversal, Start date: 02/19/18 8:29:00 CDT, Duration: 8 doses or times, Stop date: Limited # of times Flumazenil 2018-0 No 0.2 mg, Dirk reji 6 Route: l 13:29: IVP, PRN, Austyn Dosing Weight 81.9, kg, PRN Benzodiaze pine Reversal, Initial dose, Start date: 02/19/18 8:29:00 CDT, Duration: 30 day, Stop date: 03/21/18 8:28:00 CDT Sodium No Route: IV, Memor ia Chloride 6-11 Total l 0.9% IV 13:06: Volume: [place] (ANES) 500 00 500, Start mL date: 02/19/18 8:06:00 CDT, Stop date: 02/19/18 9:06:00 CDT propofol 2017-0 No Route: IV, Mem oria (ANES) 10 6-11 Drug form: l mg 12:55: INJ, Start date: 02/19/18 7:55:00 CDT, Stop date: 02/19/18 8:55:00 CDT remifentani No Route: IV, Memoria l (ANES) 1 6-11 Drug form: l mg 12:55: INJ, Start date: 02/19/18 7:55:00 CDT, Stop date: 02/19/18 8:55:00 CDT Lactated No Route: IV, Mem oria Ringers 6-11 Total l Injection 12:36: Volume: Elyse nn IV (ANES) 00 1,000, 1000 mL Start date: 02/19/18 7:36:00 CDT, Stop date: 02/19/18 8:36:00 CDT Sodium No 3 gm, 3 Memoria Chloride 6-11 tab, l 1000 MG 12:30: Route: [place], Herm roxanne Oral Tablet 00 Drug form: TAB, TID-Before Meals, Dosing Weight 82.8, kg, Start date: 02/19/18 7:30:00 CDT, Duration: 30 day, Stop date: 03/20/18 16:30:00 CDT Hydralazine No Notes: Dirk reji Hydrochlori 6-11 (Same as: l de 100 MG 11:00: Apresoline He rmann Oral Tablet ) May interfere w/enteral feedings Take With Food Potassium No Notes: Memori a Chloride 6-11 (Same as: l 11:00: KCL) Austyn Infuse over 2 hours. Nicardipine 2018-0 No Notes: Dirk reji 6-11 Same as: [...] reji 6-11 (Same as: l 10:44: Apresoline ) Push over 5 minutes potassium 2018-0 No 15 mmol, Dirk reji phosphate 6-11 Route: l 10:44: IVPB, PRN, [place] Dosing Weight 82.8, kg, PRN Abnormal Lab [...] 5:43:00 CDT, FOR ICU USE ONLY Potassium 2017-0 No 20 mEq, Memor ia Chloride 6-11 Route: PO, l 10:44: Drug form: 00 ERTAB, PRN, Dosing Weight 82.8, kg, PRN Abnormal Lab Result, Start date: 02/19/18 5:44:00 CDT, Duration: 30 day, Stop date: 03/21/18 5:43:00 CDT, FOR ICU USE ONLY Calcium 2018-0 No 1,000 mg, Memor ia Carbonate 6-11 Route: PO, l 500 MG 10:44: PRN, [place] Chewable 00 Dosing Tablet Weight 82.8, kg, PRN Abnormal Lab Result, FOR ICU USE ONLY, Start date: 02/19/18 5:44:00 CDT, Duration: 30 day, Stop date: 03/21/18 5:43:00 CDT Calcium No 1 gm, Memoria Gluconate 02-19 Route: l 10:44: IVPB, PRN, [place] Dosing Weight 82.8, kg, PRN Abnormal Lab Result, Start date: 02/19/18 5:44:00 CDT, Duration: 30 day, Stop date: 03/21/18 5:43:00 CDT, FOR ICU USE ONLY Magnesium No 2 gm, Memoria Sulfate 02-19 Route: l 10:44: IVPB, PRN, [place] Dosing Weight 82.8, kg, PRN Abnormal Lab Result, Start date: 02/19/18 5:44:00 CDT, Duration: 30 day, Stop date: 03/21/18 5:43:00 CDT, FOR ICU USE ONLY Magnesium No 800 mg, Memor ia Oxide 02-19 Route: PO, l 10:44: PRN, [place] Dosing Weight 82.8, kg, PRN Abnormal Lab Result, FOR ICU USE ONLY, Start date: 02/19/18 5:44:00 CDT, Duration: 30 day, Stop date: 03/21/18 5:43:00 CDT potassium No 2 pkt, Memori a phosphate-s 02-19 Route: PO, l odium 10:44: Dosing [place] phosphate 00 Weight 250 mg-280 82.8, kg, mg-160 mg PRN, PRN oral powder Abnormal for Lab reconstitut Result, ion FOR ICU USE ONLY, Start date: 02/19/18 5:44:00 CDT, Duration: 30 day, Stop date: 03/21/18 5:43:00 CDT Calcium No Notes: Memoria Gluconate 02-19 WASTE: F/P l 09:36: - Sink; E [place] 00 - Municipal Trash Bin Calcium No Notes: Memoria Carbonate 02-19 (Same As: l 500 MG 09:36: Tums) [place] Chewable 00 Calcium Tablet Carbonate 500 mg = 200 mg elemental calcium Dose = mg calcium carbonate ( mg elemental calcium) sodium No 15 mmol, 5 Memor ia phosphate 6-11 mL, Route: l 09:36: IVPB, PRN, [place] 00 Dosing Weight 82.8, kg, PRN Abnormal [...] Oxide 6-11 (Same as: l 09:36: Mag-Ox [place] 400) Magnesium oxide 120lw=675x g elemental magnesium Dose=____m g magnesium oxide (___mg elemental magnesium) Sodium No 1,000 mL, Memori a Chloride 6-11 1,000 l 0.9% 09:34: ml/hr, Austyn (Bolus) IV 00 Infuse Over: 1 hr, Route: IV, 1,000, Drug form: INJ, ONCE, Priority: STAT, Dosing Weight 82.8 kg, Start date: 02/19/18 4:34:00 CDT, Stop date: 02/19/18 4:34:00 CDT Saline No Notes: Memoria Flush 0.9% 6-11 (Same as: l 09:27: BD [place] Posiflush) Ondansetron No Notes: Dirk reji 6-11 (Same as: l 09:27: Zofran) [place] MEDICATION WASTE Product Size: 4 mg Product Wasted: ___ mg Bisacodyl 2017- No Notes: Memori a 6-11 (Same As: l 09:27: Dulcolax, [place] 00 Bisco-Lax) Acetaminoph No 1 tab, Dirk reji en 325 MG / 6-11 Route: PO, l Hydrocodone 09:27: Drug Form: [place] Bitartrate 00 TAB, 5 MG Oral Dosing Tablet Weight 82.8, kg, Q4H, PRN Pain Score 1-3, Start date: 02/19/18 4:27:00 CDT, Duration: 30 day, Stop date: 03/21/18 4:26:00 CDT Acetaminoph No Notes: Do M emoria en 6-11 not exceed l 09:27: 4 gm/day. [place] 00 (Same as: Tylenol) Acetaminoph No 1 tab, Dirk reji en 325 MG / 611 Route: PO, l Hydrocodone 09:27: Drug Form: [place] Bitartrate 00 TAB, 10 MG Oral Dosing Tablet Weight 82.8, kg, Q4H, PRN Pain Score 4-6, Start date: 02/19/18 4:27:00 CDT, Duration: 30 day, Stop date: 03/21/18 4:26:00 CDT Sodium 2017-0 No 1,000 mL, Memori a Chloride 6-11 Rate: 50 l 0.9% IV 09:27: ml/hr, Austyn 1,000 mL 00 Infuse over: 20 hr, Route: IV, Dosing Weight 82.8 kg, Total Volume: 1,000, Start date: 02/19/18 4:27:00 CDT, Duration: 30 day, Stop date: 03/21/18 4:26:00 CDT, 1.96, m2 Magnesium 2018-0 No 2 gm, Memoria Sulfate 6-11 Route: l 09:17: IVPB, Drug form: INJ, ONCE, Dosing Weight 82.8, kg, Start date: 02/19/18 4:17:00 CDT, Stop date: 02/19/18 4:17:00 CDT Potassium 2018-0 No Notes: Memori a Chloride 6-11 (Same as: l 1.33 MEQ/ML 09:17: Potassium H ermann Oral 00 Chloride) Solution Saline No Notes: Memoria Flush 0.9% 6-11 (Same as: l 08:15: BD [place] 00 Posiflush) PEPCID 20 Yes prn Univers MG ORAL TAB 6-11 ity of 04:52: [address] COMPLEX 1 Yes None Univer s ORAL TAB 6-11 Entered ity of 04:52: [address] M-VIT ORAL Yes None Univers 6-11 Entered ity of 04:52: [address] 20 Yes prn [facility] MG ORAL TAB 6-11 ity of 04:52: [address] 1 Yes None Univer s ORAL TAB 6-11 Entered ity of 04:52: [address] M-VIT ORAL Yes None Univers 6-11 Entered ity of 04:52: [address] 20 Yes prn [facility] MG ORAL TAB 6-11 ity of 04:52: [address] 1 Yes None Univer s ORAL TAB 6-11 Entered ity of 04:52: [address] M-VIT ORAL Yes None Univers 6-11 Entered ity of 04:52: [address] PEPCID 20 Yes prn Univers MG ORAL TAB 6-11 ity of 04:52: [address] 1 Yes None Univer s ORAL TAB 6-11 Entered ity of 04:52: [address] M-VIT ORAL Yes None Univers 6-11 Entered ity of 04:52: [address] PEPCID 20 Yes prn Univers MG ORAL TAB 6-10 ity of 23:52: [address] COMPLEX 1 Yes None Univer s ORAL TAB 6-10 Entered ity of 23:52: [address] M-VIT ORAL Yes None Univers 6-10 Entered ity of 23:52: [address] PEPCID 20 Yes prn Univers MG ORAL TAB 6-10 ity of 23:52: [address] 1 2018-0 Yes None Univer s ORAL TAB 6-10 Entered ity of 23:52: [address] M-VIT ORAL 2018-0 Yes None Univers 6-10 Entered ity of 23:52: [address] Levetiracet Yes 500 mg = 1 Memoria am 500 MG 6-05 tab, PO, l Oral Tablet 15:03: Q12H, # 1 H ermann 00 tab, 0 Refill(s) Clonidine 2018 Yes 0.1 mg = 1 Me moria Hydrochlori 6-05 tab, PO, l de 0.1 MG 15:03: Q8H, 0 Jax n Oral Tablet 00 Refill(s) Acetaminoph Yes 100.4 F, M emoria en 6-05 0 l 15:03: Refill(s) [place] 00 nebivolol 5 Yes 30 mg = 6 M emoria mg oral 6-05 tab, PO, l tablet 15:03: Daily, 0 [place] 00 Refill(s) lisinopril Yes 20 mg = [...] s with feeding tube less than 14 Colombian (Dobhoff, J-tube etc) and pediatric and patients. With food and full glass of water Potassium 2017-0 No Notes: Memori a Chloride 6-04 (Same as: l 16:00: K-Dur 20) Austyn 00 "Do Not Crush" For patients unable to swallow tablet, dissolve in one half glass of water. Allow about 2 minutes for the tablets to disintegra te. Stir before giving to prepare slurry and administer . Please exclude Patient s with feeding tube less than 14 [place] (Dobhoff, J-tube etc) and pediatric and patients. With food and full glass of water Norvasc No Notes: Memoria 02-12 (Same as: l 14:00: Norvasc) 00 potassium No Notes: Memori a chloride 20 02-12 (Same as: l mEq oral 12:37: K-Dur 20) Herm roxanne tablet, 00 "Do Not extended Crush" For release patients unable to swallow tablet, dissolve in one half glass of water. Allow about 2 minutes for the tablets to disintegra te. Stir before giving to prepare slurry and administer . Please exclude Patient s with feeding tube less than 14 [place]ian (Dobhoff, J-tube etc) and pediatric and patients. With food and full glass of water Clonidine No Notes: Memori a 02-11 (Same As: l 21:00: Catapres) Sodium Yes 3 gm = 3 Memoria Chloride 03 tab, NJ, l 1000 MG 18:08: TID-Before Herm roxanne Oral Tablet 00 Meals, # 63 tab, 0 Refill(s) Hydralazine Yes PO, Q6H, 0 Memoria Hydrochlori 02-11 Refill(s) l de 100 MG 18:08: [place] Oral Tablet 00 amLODIPine No 5 mg = 1 Mem oria 5 mg oral 03 tab, PO, l tablet 18:08: Q12H, 0 Refill(s) Insulin No 60 units) Dirk reji regular 02-10 WASTE: F/P l 23:44: - Black; E - Municipal Trash Bin Stable for 28 days at room temperatur e Expires in days from ____Date Glucagon No 1 mg, Memoria 02-10 Route: IM, l 23:44: Drug form: PDR/INJ, PRN, Dosing Weight 82.8, kg, PRN Blood Glucose Results, Start date: 02/10/18 18:44:00 CDT, Duration: 30 day, Stop date: 03/12/18 18:43:00 CDT Dextrose 2018- No 25 gm, 50 Dirk reji 50% Syringe 6-02 mL, Route: l 23:44: IVP, Drug [place] 00 Form: INJ, Dosing Weight 82.8, kg, PRN, PRN Blood Glucose Results, Start date: 02/10/18 18:44:00 CDT, Duration: 30 day, Stop date: 03/12/18 18:43:00 CDT Sodium 2018- No 3 gm, 3 Memoria Chloride 6-02 tab, l 1000 MG 12:30: Route: [place], Herm roxanne Oral Tablet 00 Drug form: TAB, TID-Before Meals, Dosing Weight 82.8, kg, Start date: 02/10/18 7:30:00 CDT, Duration: 30 day, Stop date: 03/11/18 16:30:00 CDT Potassium 2017- No Notes: Memori a Chloride 6-01 (Same [...] reji 6-01 acetaminop l 18:34: hen = [place] 00 4000mg/day (4 gm/day). (Same as: Tylenol) hydrALAZINE No Notes: Dirk reji 6-01 (Same as: l 13:19: Apresoline [place] 00 ) May interfere w/enteral feedings Take With Food. Potassium No Notes: Memori a Chloride 6-01 (Same as: l 1.33 MEQ/ML 09:41: Potassium H ermann Oral 00 Chloride) Solution Hydralazine No Notes: Dirk reji Hydrochlori -31 (Same as: l de 50 MG 20:29: Apresoline Her antonio Oral Tablet 00 ) May interfere w/enteral feedings Take With Food. Norvasc No Notes: Memoria 5-31 (Same as: l 18:18: Norvasc) [place] 00 heparin No Notes: Memoria sodium, 5-31 porcine l porcine 14:00: heparin [place] 2500 UNT/ML 00 Injectable Solution Lisinopril No Notes: Memor ia 5-31 (Same as: l 14:00: Prinivil, [place] 00 Zestril) Bystolic No Notes: Memoria 5-31 (same as: l 14:00: Bystolic) [place] Nicardipine No Notes: Dirk reji -31 Same as: l 08:09: Cardene [place] Concentrat ion: (0.1 mg/ 1 ml) nebivolol No 10 mg = 1 Mem oria 10 MG Oral 02-08 tab, PO, l Tablet 03:55: Daily, # [place] [Bystolic] 00 30 tab, 0 Refill(s) Bystolic No PO, Daily, Mem oria 5-31 0 l 03:55: Refill(s) [place] 00 Coreg No Notes: Memoria 5-30 Give with l 22:53: food. [place] 00 (Same As: Coreg) Lisinopril No Notes: Memor ia -30 (Same as: l 13:59: Prinivil, [place] 00 Zestril) Insulin No Notes: Memoria Glargine -30 Same as: l 100 UNT/ML 13:58: Lantus) [...] Memoria 5-30 (Same as: l 02:00: Zocor) [place] 00 Melatonin 3 No Notes: Dirk reji MG Extended 5-30 (Same as: l Release 02:00: Melatonin) Herm roxanne Tablet 00 Levetiracet No Notes: Dirk reji am 5-29 (Same l 23:00: as:Keppra) [place] 00 Sodium No 3 gm, 3 Memoria Chloride 5-29 tab, l 1000 MG 18:00: Route: [place], Fina roxanne Oral Tablet 00 Drug form: TAB, QID, Dosing Weight 82.8, kg, Start date: 02/06/18 13:00:00 CDT, Duration: 30 day, Stop date: 03/08/18 9:00:00 CDT acetaminoph No Notes: Max Memoria en 5-29 acetaminop l 14:48: hen = [place] 00 4000mg/day (4 gm/day). (Same as: Tylenol) Bystolic No Notes: Memoria 5-29 (same as: l 14:00: Bystolic) [place] 00 Protonix No Notes: Memoria 5-29 Tablet l 14:00: should not Austyn 00 be chewed or crushed. (Same as: Protonix) Flomax No Notes: Memoria 5-29 (Same As: l 14:00: Flomax) [place] 00 "Do Not Crush" Tylenol No 100.4 F, [...] 5-29 tab, PO, l tablet 03:54: Daily [place] 00 Fluoxetine Yes 20 mg = 1 Me moria 20 MG Oral 5-29 cap, PO, l Capsule 03:54: Daily [place] [Prozac] 00 gabapentin Yes 300 mg = [...] 5-29 tab, PO, l Tablet 03:54: Daily [place] [Plavix] 00 Metformin Yes 500 mg = 1 Me moria hydrochlori 5-29 tab, PO, l de 500 MG 03:54: BID-Meals Her antonio Oral Tablet Simvastatin Yes 20 mg = 1 M emoria 20 MG Oral 5-29 tab, PO, l Tablet 03:54: Bedtime [place] [Zocor] 00 nebivolol No 10 mg = 1 Mem oria 10 MG Oral 5-29 tab, PO, l Tablet 03:54: Daily [place] [Bystolic] 00 Tamsulosin Yes 0.4 mg = 1 M emoria hydrochlori 5-29 cap, PO, l de 0.4 MG 03:54: Daily [place]yn Oral 00 Capsule [Flomax] Omeprazole Yes 20 mg = 1 Me moria 20 MG 5-29 cap, PO, l Enteric 03:54: Daily [place] Coated 00 Capsule [Prilosec] Insulin No 20 unit, Memori a Glargine 5-29 SUB-Q, l 100 UNT/ML 03:54: Bedtime Herm roxanne Injectable Solution [Lantus] Saline No Notes: Memoria Flush 0.9% 5-29 (Same as: l 02:00: BD Posiflush) Docusate No Notes: Memoria 5-29 (Same as: l 02:00: Colace) [place] sennosides, No Notes: Dirk reji SENIOR CARE 5-29 (Same as: l 02:00: Senokot) Tylenol No Notes: Do Memor ia 5-29 not exceed l 01:30: 4 gm/day. (Same as: Tylenol) Labetalol No 10 mg, 2 Dirk reji 5-29 mL, Route: l 01:30: IVP, Drug form: INJ, Q1H, Dosing Weight 80, kg, PRN Hypertensi on, Start date: 02/05/18 20:30:00 CDT, Duration: 30 day, Stop date: 03/07/18 20:29:00 CDT Hydralazine No Notes: Dirk reji 5-29 (Same as: l 01:30: Apresoline ) Push over 5 minutes Calcium No Notes: Memoria Carbonate 5-29 (Same As: l 500 MG 01:25: Tums) [place] Chewable Calcium Tablet Carbonate 500 mg = 200 mg elemental calcium Dose = mg calcium carbonate ( mg elemental calcium) Magnesium No Notes: Memori a Oxide 02-06 (Same as: l 01:25: Mag-Ox [place] 00 400) Magnesium oxide [id number]=[id number] g elemental magnesium Dose=____m g magnesium oxide (___mg elemental magnesium) Calcium No Notes: Memoria Gluconate 02-06 WASTE: F/P l 01:25: - Sink; E Austyn - Municipal Trash Bin Magnesium No Notes: Memori a Sulfate 02-06 WASTE: F/P l 01:25: - Sink; E Austyn - Municipal Trash Bin Potassium No Notes: Memori a Chloride 02-06 (Same as: l 01:25: KCL) [place] 00 Infuse no faster than 10 mEq/hr if given peripheral ly. potassium No Notes: Memori a phosphate-s 02-06 (Same as: l odium 01:25: Phos-NaK) [place] phosphate 00 Each 1.5 250 mg-280 gm pkt has mg-160 mg 250mg oral powder phosphorou for s. Mix reconstitut w/2.5oz ion water and stir. potassium No Notes: Memori a phosphate 02-06 (Same as: l 01:25: K [place] 00 Phosphate. ) 1 mMol phoshate has 1.47 mEq potassium Infuse over 4 hours sodium No 30 mmol, Memoria phosphate 5-29 10 mL, l 01:25: Route: [place] 00 IVPB, PRN, Dosing Weight 80, kg, PRN Abnormal Lab Result, Start date: 02/05/18 20:25:00 CDT, Duration: 30 day, Stop date: 03/07/18 20:24:00 CDT, FOR ICU USE ONLY Sodium No 1,000 mL, Memori a Chloride 02-06 1,000 l 0.9% 01:21: ml/hr, [place] (Bolus) IV 00 Infuse Over: 1 hr, Route: IV, 1,000, Drug form: INJ, ONCE, Priority: STAT, Dosing Weight 80 kg, Start date: 02/05/18 20:21:00 CDT, Stop date: 02/05/18 20:21:00 CDT Sodium No 1,000 mL, Memori a Chloride - Rate: 50 l 0.9% IV 01:21: ml/hr, [...] Syringe 02-05 12.5 mL, l 23:05: Route: IVP, Drug Form: INJ, Dosing Weight 80, [...] e Expires in days from ____Date Saline 0 No Notes: Memoria Flush 0.9% - (Same as: l 23:05: BD Posiflush) Sodium No 10,000 mL, Memor ia Chloride - Rate: 50 l 0.9% IV 23:05: ml/hr, Austyn 40135 mL 00 Infuse over: 200 hr, Route: IV, Dosing Weight 80 kg, Total Volume: 10,000, Start date: 02/05/18 18:05:00 CDT, Duration: 30 day, Stop date: 03/07/18 18:04:00 CDT Acetaminoph No Notes: Do M emoria en 325 MG / -28 not exceed l Hydrocodone 23:05: 4gm/day of [place] Bitartrate 00 acetaminop 10 MG Oral hen. (Same Tablet as: [place] 325/10) Acetaminoph No Notes: Dirk reji en 325 MG / -28 (Same as: l Hydrocodone 23:05: [place] Elyse nn Bitartrate 00 325/5) Do 5 MG Oral not exceed Tablet 4gm/day of acetaminop hen. Morphine No Notes: Memoria - (Same l 23:05: as:MORPhin Aust[place] 00 e Sulfate) Bisacodyl No Notes: Memori a - (Same As: l 23:05: Dulcolax, Aust[place] 00 Bisco-Lax) Keppra No Notes: Memoria - [...] Daily Medica l MG tablet 00 (1800). [place] lisinopriL 2014-09 Yes 40mg Take [address] (PRINIVIL,Z 2-21 by mouth Luke s ESTRIL) 40 00:00: Daily Medica l MG tablet 00 (1800). [place] lisinopriL 2014-09 Yes 40mg Take [address] (PRINIVIL,Z 2-21 by mouth Luke s ESTRIL) 40 00:00: Daily Medica l MG tablet 00 (1800). [place] lisinopriL 2014-09 Yes 40mg Take [address] (PRINIVIL,Z 2-21 by mouth Luke s ESTRIL) 40 00:00: Daily Medica l MG tablet 00 (1800). [place] lisinopriL 2014-09 Yes 40mg Take [address] (PRINIVIL,Z 2-21 by mouth Luke s ESTRIL) 40 00:00: Daily Medica l MG tablet 00 (1800). [place] lisinopriL 2014-09 Yes 40mg Take [address] (PRINIVIL,Z 2-21 by mouth Luke s ESTRIL) 40 00:00: Daily Medica l MG tablet 00 (1800). [place] lisinopriL 2014-09 Yes 40mg Take [address] (PRINIVIL,Z 2-21 by mouth Luke s ESTRIL) 40 00:00: Daily Medica l MG tablet 00 (1800). [place] lisinopriL 2014-09 Yes 40mg Take [address] (PRINIVIL,Z 2-21 by mouth Luke s ESTRIL) 40 00:00: Daily Medica l MG tablet 00 (1800). [place] lisinopriL 2014-09 Yes 40mg Take [address] (PRINIVIL,Z 2-21 by mouth Luke s ESTRIL) 40 00:00: Daily Medica l MG tablet 00 (1800). [place] lisinopriL 2014-09 Yes 40mg Take [address] (PRINIVIL,Z 2-21 by mouth Luke s ESTRIL) 40 00:00: Daily Medica l MG tablet 00 (1800). [place] PROTONIX 40 Yes [id number] 1 tab PO Univers MG ORAL 4-01 daily ity of TBEC 00:00: [place] [facility] PROTONIX 40 Yes [id number] 1 tab PO Univers MG ORAL 4-01 daily ity of TBEC 00:00: [place] [facility] PROTONIX 40 Yes [id number] 1 tab PO Univers MG ORAL 4-01 daily ity of TBEC 00:00: [facility] PROTONIX 40 Yes [id number] 1 tab PO Univers MG ORAL 4-01 daily ity of TBEC 00:00: [place] [facility] PROTONIX 40 Yes [id number] 1 tab PO Univers MG ORAL 4-01 daily ity of TBEC 00:00: [facility] PROTONIX 40 Yes [id number] 1 tab PO Univers MG ORAL 4-01 daily ity of TBEC 00:00: [place] 00 [facility] PROTONIX 40 2008-0 2021- No [id number] 1 tab PO Univers MG ORAL 4-01 10-15 daily ity of TBEC 00:00: 00:00 [place] 00 :00 [facility] PROTONIX 40 2008-0 2021- No [id number] 1 tab PO Univers MG ORAL 4-01 10-15 daily ity of TBEC 00:00: 00:00 [place] 00 :00 [facility] ENALAPRIL 2009-0 Yes [id number] 1 tab po Univers MALEATE 20 1-15 BID ity of MG ORAL TAB 00:00: [place] 00 [facility] ENALAPRIL 2009-0 Yes [id number] 1 tab po Univers MALEATE 20 1-15 BID ity of MG ORAL TAB 00:00: [place] 00 [facility] ENALAPRIL 2009-0 Yes [id number] 1 tab po Univers MALEATE 20 1-15 BID ity of MG ORAL TAB 00:00: [place] 00 [facility] ENALAPRIL 2009-0 Yes [id number] 1 tab po Univers MALEATE 20 1-15 BID ity of MG ORAL TAB 00:00: [place] 00 [facility] ENALAPRIL 2009-0 Yes [id number] 1 tab po Univers MALEATE 20 1-15 BID ity of MG ORAL TAB 00:00: [place] 00 [facility] ENALAPRIL 2009-0 Yes [id number] 1 tab po Univers MALEATE 20 1-15 BID ity of MG ORAL TAB 00:00: [place] 00 [facility] ENALAPRIL 2009-0 2022- No [id number] 1 tab po Univers MALEATE 20 1-15 10-15 BID ity of MG ORAL TAB 00:00: 00:00 [place] 00 :00 [facility] ENALAPRIL 2009-0 2022- No [id number] 1 tab po Univers MALEATE 20 1-15 10-15 BID ity of MG ORAL TAB 00:00: 00:00 [place] 00 :00 [facility] HYDROCHLORO 2008-1 Yes [id number] take 1 po Univers THIAZIDE 25 0-30 daily ity of MG ORAL TAB 00:00: [place] 00 [facility] HYDROCHLORO 2008-1 Yes [id number] take 1 po Univers THIAZIDE 25 0-30 daily ity of MG ORAL TAB 00:00: [place] 00 [facility] HYDROCHLORO 2008-1 Yes [id number] take 1 po Univers THIAZIDE 25 0-30 daily ity of MG ORAL TAB 00:00: [place] [facility] HYDROCHLORO 2007-09 Yes [id number] take 1 po Univers THIAZIDE 25 0-30 daily ity of MG ORAL TAB 00:00: [place] [facility] HYDROCHLORO 2007- Yes [id number] take 1 po Univers THIAZIDE 25 0-30 daily ity of MG ORAL TAB 00:00: [place] [facility] HYDROCHLORO 2007-09 Yes [id number] take 1 po Univers THIAZIDE 25 0-30 daily ity of MG ORAL TAB 00:00: [place] [facility] HYDROCHLORO 2007-2021- No [id number] take 1 po Univers THIAZIDE 25 0-30 10-15 daily ity of MG ORAL TAB 00:00: 00:00 [place] 00 :00 [facility] HYDROCHLORO 2007-2021- No [id number] take 1 po Univers THIAZIDE 25 0-30 10-15 daily ity of MG ORAL TAB 00:00: 00:00 [place] 00 :00 [facility] GLIPIZIDE 5 Yes tske 2 tab Univers MG ORAL TAB 9-09 qam and 1 ity of 00:00: tab qpm [place] [facility] GLIPIZIDE 5 Yes tske 2 [...] and 1 ity of 00:00: tab qpm [place] [facility] GLIPIZIDE 5 Yes tske 2 tab Univers MG ORAL TAB 9-09 qam and 1 ity of 00:00: tab qpm [place] 00 [facility] GLIPIZIDE 5 2021- No tske 2 tab Univers MG ORAL TAB 9-09 10-15 qam and 1 it y of 00:00: 00:00 tab qpm [place] 00 :00 [facility] GLIPIZIDE 5 2- No tske 2 tab Univers MG ORAL TAB 05-20 10-15 qam and 1 it y of 00:00: 00:00 tab qpm [place] 00 :00 [facility] ATENOLOL Yes [id number] one tab po Univers 100 MG ORAL 8-27 daily ity of TAB 00:00: [place] [facility] NORCO Yes 1 tab po Univers 7.5-325 MG 8-27 TID ity of ORAL TAB 00:00: [place] [facility] AMITRIPTYLI Yes 2 tabs QHS Univers NE 50 MG 8-27 ity of ORAL TAB 00:00: [place] [facility] METFORMIN 2007- Yes [id number] 1 tab PO Univers 850 MG ORAL 8-27 TID ity of TAB 00:00: [place] [facility] CLONIDINE Yes [id number] take 1 po Univers 0.2 MG ORAL 8-27 qid for 1 ity of TAB 00:00: week, then [place] 00 tid for 1 Medical week, then Branch bid and prn thereafter PRAVASTATIN Yes [id number] take 1 po Univers 40 MG ORAL 8-27 qhs ity of TAB 00:00: [facility] ATENOLOL Yes [id number] one tab po [facility] 100 MG ORAL 8-27 daily ity of TAB 00:00: [facility] NORCO Yes 1 tab po [facility] 7.5-325 MG 8-27 TID ity of ORAL TAB 00:00: [facility] AMITRIPTYLI Yes 2 tabs QHS [facility] [place] 50 MG 8-27 ity of ORAL TAB 00:00: [facility] METFORMIN 2007-0 Yes [id number] 1 tab PO [facility] 850 MG ORAL 8-27 TID ity of TAB 00:00: [facility] CLONIDINE 2007- Yes [id number] take 1 po [facility] 0.2 MG ORAL 8-27 qid for 1 ity of TAB 00:00: week, then [place] 00 tid for 1 Medical week, then Branch bid and prn thereafter PRAVASTATIN Yes [id number] take 1 po [facility] 40 MG ORAL 8-27 qhs ity of TAB 00:00: [facility] ATENOLOL Yes [id number] one tab po [facility] 100 MG ORAL 8-27 daily ity of TAB 00:00: [facility] NORCO Yes 1 tab po [facility] 7.5-325 MG 8-27 TID ity of ORAL TAB 00:00: [facility] AMITRIPTYLI Yes 2 tabs QHS [facility] [place] 50 MG 8-27 ity of ORAL TAB 00:00: [facility] METFORMIN Yes [id number] 1 tab PO [facility] 850 MG ORAL 8-27 TID ity of TAB 00:00: [facility] CLONIDINE Yes [id number] take 1 po [facility] 0.2 MG ORAL 8-27 qid for 1 ity of TAB 00:00: week, then [place] 00 tid for 1 Medical week, then Branch bid and prn thereafter PRAVASTATIN Yes [id number] take 1 po [facility] 40 MG ORAL 8-27 qhs ity of TAB 00:00: [facility] ATENOLOL Yes [id number] one tab po [facility] 100 MG ORAL 8-27 daily ity of TAB 00:00: [facility] NORCO Yes 1 tab po [facility] 7.5-325 MG 8-27 TID ity of ORAL TAB 00:00: [facility] AMITRIPTYLI Yes 2 tabs QHS Univers NE 50 MG 8-27 ity of ORAL TAB 00:00: [place] [facility] METFORMIN Yes [id number] 1 tab PO Univers 850 MG ORAL 8-27 TID ity of TAB 00:00: [facility] CLONIDINE Yes [id number] take 1 po Univers 0.2 MG ORAL 8-27 qid for 1 ity of TAB 00:00: week, then [place] 00 tid for 1 Medical week, then Branch bid and prn thereafter PRAVASTATIN Yes [id number] take 1 po Univers 40 MG ORAL 8-27 qhs ity of TAB 00:00: [facility] ATENOLOL Yes [id number] one tab po Univers 100 MG ORAL 8-27 daily ity of TAB 00:00: [place] [facility] NORCO Yes 1 tab po Univers 7.5-325 MG 8-27 TID ity of ORAL TAB 00:00: [place] [facility] AMITRIPTYLI Yes 2 tabs QHS Univers NE 50 MG 8-27 ity of ORAL TAB 00:00: [place] 00 [facility] METFORMIN Yes [id number] 1 tab PO Univers 850 MG ORAL 8-27 TID ity of TAB 00:00: [place] 00 [facility] CLONIDINE Yes [id number] take 1 po Univers 0.2 MG ORAL 8-27 qid for 1 ity of TAB 00:00: week, then [place] 00 tid for 1 Medical week, then Branch bid and prn thereafter PRAVASTATIN Yes [id number] take 1 po Univers 40 MG ORAL 8-27 qhs ity of TAB 00:00: [place] 00 [facility] ATENOLOL Yes [id number] one tab po Univers 100 MG ORAL 8-27 daily ity of TAB 00:00: [place] 00 [facility] NORCO Yes 1 tab po Univers 7.5-325 MG 8-27 TID ity of ORAL TAB 00:00: [place] [facility] AMITRIPTYLI Yes 2 tabs QHS Univers NE 50 MG 8-27 ity of ORAL TAB 00:00: [place] 00 [facility] METFORMIN Yes [id number] 1 tab PO Univers 850 MG ORAL 8-27 TID ity of TAB 00:00: [place] 00 [facility] CLONIDINE Yes [id number] take 1 po Univers 0.2 MG ORAL 8-27 qid for 1 ity of TAB 00:00: week, then [place] 00 tid for 1 Medical week, then Branch bid and prn thereafter PRAVASTATIN Yes [id number] take 1 po Univers 40 MG ORAL 8-27 qhs ity of TAB 00:00: [place] 00 [facility] ATENOLOL 2007-0 2021- No [id number] one tab po Univers 100 MG ORAL 8-27 10-15 daily ity of TAB 00:00: 00:00 [place] 00 :00 [facility] NORCO 2007-0 202- No 1 tab po Univers 7.5-325 MG 8-27 10-15 TID ity of ORAL TAB 00:00: 00:00 [place] 00 :00 [facility] AMITRIPTYLI 2007-0 2021- No 2 tabs QHS Univers NE 50 MG 8-27 10-15 ity of ORAL TAB 00:00: 00:00 [place] 00 :00 [facility] METFORMIN 2021- No [id number] 1 tab PO Univers 850 MG ORAL 8-27 10-15 TID ity of TAB 00:00: 00:00 [place] 00 :00 [facility] CLONIDINE 2021- No [id number] take 1 po Univers 0.2 MG ORAL 8-27 10-15 qid for 1 it y of TAB 00:00: 00:00 week, then [place] 00 :00 tid for 1 Medical week, then Branch bid and prn thereafter PRAVASTATIN 2021- No [id number] take 1 po Univers 40 MG ORAL 8-27 10-15 qhs ity of TAB 00:00: 00:00 [place] 00 :00 [facility] ATENOLOL 2021- No [id number] one tab po Univers 100 MG ORAL 8-27 10-15 daily ity of TAB 00:00: 00:00 [place] 00 :00 [facility] NORCO 2021- No 1 tab po Univers 7.5-325 MG 8-27 10-15 TID ity of ORAL TAB 00:00: 00:00 [place] 00 :00 [facility] AMITRIPTYLI 2021- No 2 tabs QHS Univers NE 50 MG 8-27 10-15 ity of ORAL TAB 00:00: 00:00 [place] 00 :00 [facility] METFORMIN 2021- No [id number] 1 tab PO Univers 850 MG ORAL 8-27 10-15 TID ity of TAB 00:00: 00:00 [place] 00 :00 [facility] CLONIDINE 2021- No [id number] take 1 po Univers 0.2 MG ORAL 8-27 10-15 qid for 1 it y of TAB 00:00: 00:00 week, then [place] 00 :00 tid for 1 Medical week, then Branch bid and prn thereafter PRAVASTATIN 2021- No [id number] take 1 po Univers 40 MG ORAL 8-27 10-15 qhs ity of TAB 00:00: 00:00 [place] 00 :00 [facility] CLONIDINE Yes [id number] 1 tab tid Univers 0.3 MG ORAL 4-30 and prn ity o f TAB 00:00: [place] 00 [facility] CLONIDINE Yes [id number] 1 tab tid Univers 0.3 MG ORAL 4-30 and prn ity o f TAB 00:00: [place] 00 [facility] CLONIDINE 2007-0 Yes [id number] 1 tab tid Univers 0.3 MG ORAL 4-30 and prn ity o f TAB 00:00: [place] [facility] CLONIDINE 2007-0 Yes [id number] 1 tab tid Univers 0.3 MG ORAL 4-30 and prn ity o f TAB 00:00: [place] [facility] CLONIDINE 2007-0 Yes [id number] 1 tab tid Univers 0.3 MG ORAL 4-30 and prn ity o f TAB 00:00: [place] [facility] CLONIDINE 2007-0 Yes [id number] 1 tab tid Univers 0.3 MG ORAL 4-30 and prn ity o f TAB 00:00: [place] [facility] CLONIDINE 2007-0 2021- No [id number] 1 tab tid Univers 0.3 MG ORAL 4-30 10-15 and prn ity of TAB 00:00: 00:00 [place] 00 :00 [facility] CLONIDINE 2007-0 2021- No [id number] 1 tab tid Univers 0.3 MG ORAL 4-30 10-15 and prn ity of TAB 00:00: 00:00 [place] 00 :00 [facility] ASPIRIN 325 2006-09 Yes [id number] 1 tab U nivers MG ORAL TAB 0-04 daily ity of 00:00: [place] [facility] ASPIRIN 325 2006- Yes [id number] 1 tab U nivers MG ORAL TAB 0-04 daily ity of 00:00: [place] [facility] ASPIRIN 325 2006- Yes [id number] 1 tab U nivers MG ORAL TAB 0-04 daily ity of 00:00: [place] [facility] ASPIRIN 325 2006- Yes [id number] 1 tab U nivers MG ORAL TAB 0-04 daily ity of 00:00: [place] [facility] ASPIRIN 325 2006- Yes [id number] 1 tab U nivers MG ORAL TAB 0-04 daily ity of 00:00: [place] [facility] ASPIRIN 325 2006- Yes [id number] 1 tab U nivers MG ORAL TAB 0-04 daily ity of 00:00: [place] [facility] ASPIRIN 325 2006-2021- No [id number] 1 tab Univers MG ORAL TAB 0-04 10-15 daily ity of 00:00: 00:00 [place] 00 :00 [facility] ASPIRIN 325 2006-2021- No [id number] 1 tab Univers MG ORAL TAB 0-04 10-15 daily ity of 00:00: 00:00 [place] 00 :00 [facility] Immunizations Ordered Filled Immunization Date Status Comments [facility] e Immunization Name Name Influenza Virus 2007-06-20 Completed Universit y of Vaccine 00:00:00 [facility] Influenza Virus 2007-06-20 Completed Universit y of Vaccine 00:00:00 [facility] Influenza Virus 2007-06-20 Completed Universit y of Vaccine 00:00:00 [facility] Influenza Virus 2007-06-20 Completed Universit y of Vaccine 00:00:00 [facility] Influenza Virus 2007-06-20 Completed Universit y of Vaccine 00:00:00 [facility] Influenza Virus 2007-06-20 Completed Universit y of Vaccine 00:00:00 [facility] Influenza Virus 2007-06-20 Completed Universit y of Vaccine 00:00:00 [facility] Influenza Virus 2007-06-20 Completed Universit y of Vaccine 00:00:00 [facility] Influenza Virus 2007-06-20 Completed Universit y of Vaccine 00:00:00 [facility] Influenza Virus 2007-06-20 Completed Universit y of Vaccine 00:00:00 [facility] Influenza Virus 2007-06-20 Completed Universit y of Vaccine 00:00:00 [facility] Influenza Virus 2007-06-20 Completed Universit y of Vaccine 00:00:00 [facility] Influenza Virus 2007-06-20 Completed Universit y of Vaccine 00:00:00 [facility] Influenza Virus 2007-06-20 Completed Universit y of Vaccine 00:00:00 [facility] Influenza Virus 2007-06-20 Completed Universit y of Vaccine 00:00:00 [facility] Influenza Virus 2007-06-20 Completed Universit y of Vaccine 00:00:00 [facility] Influenza Virus 2007-06-20 Completed Universit y of Vaccine 00:00:00 [facility] Influenza Virus 2007-06-20 Completed Universit y of Vaccine 00:00:00 [facility] Influenza Virus 2007-06-20 Completed Universit y of Vaccine 00:00:00 [facility] Influenza Virus 2007-06-20 Completed Universit y of Vaccine 00:00:00 [facility] Influenza Virus 2007-06-20 Completed Universit y of Vaccine 00:00:00 [facility] Influenza Virus 2007-06-20 Completed Universit y of Vaccine 00:00:00 [facility] Influenza Virus 2007-06-20 Completed Universit y of Vaccine 00:00:00 [facility] Influenza Virus 2007-06-20 Completed Universit y of Vaccine 00:00:00 [facility] Influenza Virus 2007-06-20 Completed Universit y of Vaccine 00:00:00 [facility] Influenza Virus 2007-06-20 Completed Universit y of Vaccine 00:00:00 [facility] Influenza Virus 2006-07-26 Completed Universit y of Vaccine 00:00:00 [facility] Influenza Virus 2006-07-26 Completed Universit y of Vaccine 00:00:00 [facility] Influenza Virus 2006-07-26 Completed Universit y of Vaccine 00:00:00 [facility] Influenza Virus 2006-07-26 Completed Universit y of Vaccine 00:00:00 [facility] Influenza Virus 2006-07-26 Completed Universit y of Vaccine 00:00:00 [facility] Influenza Virus 2006-07-26 Completed Universit y of Vaccine 00:00:00 [facility] Influenza Virus 2006-07-26 Completed Universit y of Vaccine 00:00:00 [facility] Influenza Virus 2006-07-26 Completed Universit y of Vaccine 00:00:00 [facility] Influenza Virus 2006-07-26 Completed Universit y of Vaccine 00:00:00 [facility] Influenza Virus 2006-07-26 Completed Universit y of Vaccine 00:00:00 [facility] Influenza Virus 2006-07-26 Completed Universit y of Vaccine 00:00:00 [facility] Influenza Virus 2006-07-26 Completed Universit y of Vaccine 00:00:00 [facility] Influenza Virus 2006-07-26 Completed Universit y of Vaccine 00:00:00 [facility] Influenza Virus 2006-07-26 Completed Universit y of Vaccine 00:00:00 [facility] Influenza Virus 2006-07-26 Completed Universit y of Vaccine 00:00:00 [facility] Influenza Virus 2006-07-26 Completed Universit y of Vaccine 00:00:00 [facility] Influenza Virus 2006-07-26 Completed Universit y of Vaccine 00:00:00 [facility] Influenza Virus 2006-07-26 Completed Universit y of Vaccine 00:00:00 [facility] Influenza Virus 2006-07-26 Completed Universit y of Vaccine 00:00:00 [facility] Influenza Virus 2006-07-26 Completed Universit y of Vaccine 00:00:00 [facility] Influenza Virus 2006-07-26 Completed Universit y of Vaccine 00:00:00 [facility] Influenza Virus 2006-07-26 Completed Universit y of Vaccine 00:00:00 [facility] Influenza Virus 2006-07-26 Completed Universit y of Vaccine 00:00:00 [facility] Influenza Virus 2006-07-26 Completed Universit y of Vaccine 00:00:00 [facility] Influenza Virus 2006-07-26 Completed Universit y of Vaccine 00:00:00 [facility] Influenza Virus 2006-07-26 Completed Universit y of Vaccine 00:00:00 [facility] Vital Signs Vital Name Observation Time Observation Value Comments Source WEIGHT 2020-03-24 76.658 kg 00:00:00 Systolic blood 2022-11-01 129 mm[Hg] University of pressure 17:28:00 [facility] Diastolic blood 2022-11-01 80 mm[Hg] University o f pressure 17:28:00 [facility] Heart rate 2022-11-01 77 /min University of 17:28:00 [facility] Body temperature 2022-11-01 36.67 Sindhu University of 17:28:00 [facility] Respiratory rate 2022-11-01 20 /min University of 17:28:00 [facility] Oxygen saturation 2022-11-01 94 /min University of in Arterial blood 17:28:00 [facility] by Pulse oximetry [place] Body weight 2022-10-31 77.1 kg University of 14:00:00 [facility] BMI 2022-10-31 29.18 kg/m2 University of 14:00:00 [facility] Systolic blood 2022-10-08 139 mm[Hg] University of pressure 15:29:00 [facility] Diastolic blood 2022-10-08 85 mm[Hg] University o f pressure 15:29:00 [facility] Heart rate 2022-10-08 72 /min University of 15:29:00 [facility] Body temperature 2022-10-08 35.56 Sindhu University of 15:29:00 [facility] Respiratory rate 2022-10-08 22 /min University of 15:29:00 [facility] Oxygen saturation 2022-10-08 96 /min University of in Arterial blood 15:29:00 [place] [facility] by Pulse oximetry [place] Body height 2022-10-06 162.6 cm University of 22:03:00 [facility] Body weight 2022-10-06 78.926 kg University of 22:03:00 [facility] BMI 2022-10-06 29.87 kg/m2 University of 22:03:00 [facility] Body weight 2022-09-30 70.308 kg University of 17:27:00 [facility] BMI 2022-09-30 29.87 kg/m2 University of 17:27:00 [facility] Systolic blood 2022-08-03 137 mm[Hg] University of pressure 19:29:00 [facility] Diastolic blood 2022-08-03 68 mm[Hg] University o f pressure 19:29:00 [facility] Heart rate 2022-08-03 75 /min University of 19::00 [facility] Body temperature 2022-08-03 36.11 Sindhu University of 19:29:00 [facility] Respiratory rate 2022-08-03 16 /min University of 19::00 [facility] Body height 2022-08-03 162.6 cm University of 19::00 [facility] Body weight 2022-08-03 70.308 kg University of 19::00 [facility] BMI 2022-08-03 26.61 kg/m2 University of 19:29:00 [facility] Systolic blood 2022-06-25 150 mm[Hg] University of pressure 16:28:00 [facility] Diastolic blood 2022-06-25 92 mm[Hg] University o f pressure 16:28:00 [facility] Heart rate 2022-06-25 102 /min University of 16:28:00 [facility] Body temperature 2022-06-25 36.5 Sindhu University of 16:28:00 [facility] Respiratory rate 2022-06-25 20 /min University of 16:28:00 [facility] Oxygen saturation 2022-06-25 91 /min [facility] in Arterial blood 16:28:00 [facility] by Pulse oximetry [place] Body weight 2022-06-21 71.215 kg University of 15:26:00 [facility] BMI 2022-06-21 26.13 kg/m2 University of 15:26:00 [facility] Body height 2022-06-20 165.1 cm University of 18:31:00 [facility] Systolic blood 2022-06-24 184 mm[Hg] University of pressure 12:28:00 beena/goodwi [place] [facility] bedside Diastolic blood 2022-06-24 105 mm[Hg] dr Hernandez o f pressure 12:28:00 beena/goodwi [place] [facility] team at Branch bedside Heart rate 2022-06-24 79 /min University 12:28:00 [facility] Body temperature 2022-06-24 36.5 Sindhu University 12:28:00 [facility] Respiratory rate 2022-06-24 20 /min University 12:28:00 [facility] Oxygen saturation 2022-06-24 95 /min University of in Arterial blood 12:28:00 [facility] joyce by Pulse oximetry [place] Body weight 2022-06-21 71.215 kg [facility] 15:26:00 [facility] BMI 2022-06-21 26.13 kg/m2 University 15:26:00 [facility] Body height 2022-06-20 165.1 cm [facility] 18:31:00 [facility] Systolic blood 2021-05-11 156 mm[Hg] University of pressure 01:25:00 [facility] Diastolic blood 2021-05-11 77 mm[Hg] University o f pressure 01:25:00 [facility] Heart rate 2021-05-11 65 /min [facility] 01:25:00 [facility] Body temperature 2021-05-11 36.94 Sindhu University of 01:25:00 [facility] Respiratory rate 2021-05-11 18 /min [facility] 01:25:00 [facility] Oxygen saturation 2021-05-11 96 /min [place] of in Arterial blood 01:25:00 [facility] joyce by Pulse oximetry [place] Body weight 2021-05-10 68.04 kg University of 12:50:00 [facility] WEIGHT 2020-03-24 76.658 kg 00:00:00 Systolic (mm Hg) 2018-02-27 Elma Olmstead rmann 18:06:00 Diastolic (mm Hg) 2018-02-27 Elma Montejo ermann 18:06:00 Heart Rate 2018-02-27 Elma Camara n 18:06:00 Temperature Oral 2018-02-27 99.4 F Elma Olmstead rmann (F) 18:06:00 Respitory Rate 2018-02-27 Elma oliveira 18:06:00 Systolic (mm Hg) 2018-02-27 [facility] [...] 2022-11-11 Doctor Unassigned, Universit y of 06:01:[address] [facility] [facility] EXTERNAL PROVIDER RECORDS 2022-11-10 Doctor Unassigned, Uni versity of 06:01:[address] [facility] COVID-19 (ID NOW RAPID 2022-11-01 Gilbert Winston y of TESTING) 19:31:00 [facility] POCT GLUCOSE (AUTOMATED) 2022-11-01 Jarvis Milligan Univers ity of 17:45:00 [facility] POCT GLUCOSE (AUTOMATED) 2022-11-01 Jarvis Milligan Univers ity of 13:54:00 [facility] POCT GLUCOSE (AUTOMATED) 2022-11-01 Jarvis Milligan Univers ity of 01:54:00 [facility] POCT GLUCOSE (AUTOMATED) 2022-10-31 Jarvis Milligan Univers ity of 22:16:00 [facility] POCT GLUCOSE (AUTOMATED) 2022-10-31 Jarvis Milligan Univers ity of 17:38:00 [facility] POCT GLUCOSE (AUTOMATED) 2022-10-31 Jarvis Milligan Univers ity of 14:35:00 [facility] POCT GLUCOSE (AUTOMATED) 2022-10-31 Jarvis Milligan Univers ity of 03:26:00 [facility] POCT GLUCOSE (AUTOMATED) 2022-10-30 Jarvis Milligan Univers ity of 17:29:00 [facility] POCT GLUCOSE (AUTOMATED) 2022-10-30 Jarvis Milligan Univers ity of 13:45:00 [facility] CBC WITHOUT DIFF 2022-10-30 Abdirashid, [facility] of 10:52:00 [facility] POCT GLUCOSE (AUTOMATED) 2022-10-30 Chel Jarvis Univers ity of 01:54:00 [facility] POCT GLUCOSE (AUTOMATED) 2022-10-29 Chel Jarvis Univers ity of 22:49:00 [facility] POCT GLUCOSE (AUTOMATED) 2022-10-29 Georgia Milliganon Univers ity of 17:47:00 [facility] POCT GLUCOSE (AUTOMATED) 2022-10-29 Chel Jarvis Univers ity of 13:45:00 [facility] POCT GLUCOSE (AUTOMATED) 2022-10-29 Georgia Milliganon Univers ity of 02:03:00 [facility] POCT GLUCOSE (AUTOMATED) 2022-10-28 Jarvis Milligan Univers ity of 23:28:00 [facility] POCT GLUCOSE (AUTOMATED) 2022-10-28 Jarvis Milligan Univers ity of 18:24:00 [facility] POCT GLUCOSE (AUTOMATED) 2022-10-28 Chel Jarvis Univers ity of 14:36:00 [facility] BASIC METABOLIC PANEL (NA, K, 2022-10-28 [facility] of CL, CO2, GLUCOSE, BUN, 10:14:00 [facility] ical CREATININE, [place]) Branch CBC WITH DIFF 2022-10-28 [facility] of 10:14:00 [facility] POCT GLUCOSE (AUTOMATED) 2022-10-28 Jarvis Milligan Univers ity of 02:04:00 [facility] POCT GLUCOSE (AUTOMATED) 2022-10-27 Jarvis Milligan Univers ity of 22:35:00 [facility] POCT GLUCOSE (AUTOMATED) 2022-10-27 Georgia Milliganon Univers ity of 17:33:00 [facility] POCT GLUCOSE (AUTOMATED) 2022-10-27 Jarvis Milligan Univers ity of 14:41:00 [facility] POCT GLUCOSE (AUTOMATED) 2022-10-27 Georgia Milliganon Univers ity of 03:31:00 [facility] POCT GLUCOSE (AUTOMATED) 2022-10-26 Raul Rosen Univer sity of 22:30:00 [facility] POCT GLUCOSE (AUTOMATED) 2022-10-26 Raul Rosen Univer sity of 17:32:00 [facility] POCT GLUCOSE (AUTOMATED) 2022-10-26 Raul Rosen Univer sity of 13:26:00 [facility] BASIC METABOLIC PANEL (NA, K, 2022-10-26 [facility] of CL, CO2, GLUCOSE, BUN, 11:36:00 [facility] CREATININE, [place]) Branch CBC WITH DIFF 2022-10-26 [facility] of 11:36:00 [facility] MAGNESIUM 2022-10-26 [facility] of 02:30:00 [facility] BASIC METABOLIC PANEL (NA, K, 2022-10-26 [facility] of CL, CO2, GLUCOSE, BUN, 02:30:00 [facility] ica CREATININE, [place]) Branch POCT GLUCOSE (AUTOMATED) 2022-10-26 Raul Rosen Univer sity of 01:48:00 [facility] POCT GLUCOSE (AUTOMATED) 2022-10-25 Raul Rosen Univer sity of 22:14:00 [facility] POCT GLUCOSE (AUTOMATED) 2022-10-25 Raul Rosen Univer sity of 17:33:00 [facility] ROSIO AURIS SURVEILLANCE BY 2022-10-25 Aleksandr Borja of PCR (INFECTION CONTROL 15:47:00 [facility] ica PURPOSES) Branch POCT GLUCOSE (AUTOMATED) 2022-10-25 Raul Rosen Univer sity of 14:25:00 [facility] POCT GLUCOSE (AUTOMATED) 2022-10-25 Raul Rosen Univer sity of 13:36:00 [facility] CT ANGIOGRAM HEAD 2022-10-25 Liza Quiroz [place] of 10:18:30 [facility] CT HEAD WO CONTRAST 2022-10-25 Nini Mendenhall [place] of 10:18:30 [facility] CT ANGIOGRAM NECK 2022-10-25 Liza Quiroz [place] of 10:18:30 [facility] BASIC METABOLIC PANEL (NA, K, 2022-10-25 Nini Mendenhall U niversity of CL, CO2, GLUCOSE, BUN, 09:42:00 [facility] ical CREATININE, [place]) Branch CBC WITH DIFF 2022-10-25 Nini Mendenhall [place] of 09:42:00 [facility] PROTHROMBIN TIME / INR 2022-10-25 Nini Mendenhall [facility] [place] [facility] ty of 09:42:00 [facility] ACTIVATED PARTIAL THRMPLAS 2022-10-[address] [facility] ersity of ANUSHA 09:42:00 [facility] FIBRINOGEN 2022-10-25 Abdirashid [facility] of 09:42:00 [facility] XR ELBOW <3 VW LEFT 2022-10-25 Liza Quiroz o f 02:12:03 [facility] XR SHOULDER <2 VW LEFT 2022-10-25 Liza Quiroz [facility] y of 02:12:03 [facility] XR WRIST 3+ VW LEFT 2022-10-25 Liza Quiroz o f 02:12:[address] [facility] [address] HEAD WO CONTRAST 2022-10-25 Liza Quiroz [place] o f 01:45:02 [facility] URINE CULTURE 2022-10-25 Liza Quiroz [place] of 00:42:00 [facility] HB ECG ROUTINE & RHYTHM STRIP 2022-10-25 Liza Quiroz iversity of 00:38:10 [facility] URINALYSIS 2022-10-25 Liza Quiroz of 00:32:00 [facility] LIPASE 2022-10-25 Liza Quiroz [place] of 00:12:00 [facility] MAGNESIUM 2022-10-25 Liza Quiroz [place] of 00:12:00 [facility] TROPONIN I 2022-10-25 Liza Quiroz [place] of 00:12:00 [facility] COMP. METABOLIC PANEL ([id number]) 2022-10-25 Liza Quiroz iversity of 00:12:00 [facility] CBC WITH DIFF 2022-10-25 Liza Quiroz of 00:12:00 [facility] PROTHROMBIN TIME / INR 2022-10-25 Ebrahim, [facility] of 00:12:00 [facility] N-TERMINAL PRO-BNP 2022-10-25 Richie [facility] of 00:12:00 [facility] EMERGENCY DEPARTMENT 2022-10-24 Doctor Unassigned [facility] [place] [facility] ty of DOCUMENTS 06:01:[address] [facility] COVID-19 (ID NOW RAPID 2022-10-08 Chauncey [facility] y of TESTING) 14:58:00 [facility] COVID-19 (ID NOW RAPID 2022-10-08 Chauncey [facility] y of TESTING) 14:58:00 [facility] LAB ONLY COVID INTERPRETATION 2022-10-08 Adelaide Grossman Un iversity of 14:58:00 [facility] POCT GLUCOSE (AUTOMATED) 2022-10-08 Bryan, [facility]y [facility] 14:[facility] 2022-10-08 [place], [facility] 14:55:[facility] PO[facility]ATED) 2022-10-08 [place], Univers ity [facility] 03:51:[facility] PO[facility] ([facility]OMATED) 2022-10-08 Bryan, Univers it[facility] 03:51:[facility] PO[facility]SE (AUTOMATED) 2022-10-08 [place], Univers ity [facility] 03:10:[facility] PO[facility] ([facility]OMATED) 2022-10-08 Bryan, Univers ity of 03:10:00 [facility] COVID-19 (ID NOW RAPID 2022-10-07 Adelaide Grossman [facility] y of TESTING) 20:42:00 [facility] LAB ONLY COVID INTERPRETATION 2022-10-07 Adelaide Grossman Un iversity of 20:42:00 [facility] COVID-19 (ID NOW RAPID 2022-10-07 Inga [facility]) 20:42:00 [facility] LAB ONLY COVID INTERPRETATION 2022-10-07 Adelaide [place] Un iversity of 20:42:00 [facility] HB ECG ROUTINE & RHYTHM STRIP 2022-10-07 Bryan, Un iversity of 14:09:51 [facility] HB ECG ROUTINE & RHYTHM STRIP 2022-10-07 Bryan, Un iversity of 14:09:51 [facility] MAGNESIUM 2022-10-07 [facility] of 11:05:00 [facility] BASIC METABOLIC PANEL (NA, K, 2022-10-07 [place] Un iversity of CL, CO2, GLUCOSE, BUN, 11:05:00 [place] [facility] CREATININE, CA) Branch CBC WITH DIFF 2022-10-07 [facility] of 11:05:00 [facility] MAGNESIUM 2022-10-07 [facility] of 11:05:00 [facility] BASIC METABOLIC PANEL (NA, K, 2022-10-07 [place] Un iversity of CL, CO2, GLUCOSE, BUN, 11:05:00 [place] [facility] CREATININE, CA) Branch CBC WITH DIFF 2022-10-07 [facility] of 11:05:[address] [facility] CT HEAD WO CONTRAST 2022-10-06 [facility] o f 21:38:43 [facility] CT HEAD WO CONTRAST 2022-10-06 [facility] o f 21:38:43 [facility] XR CHEST 1 VW 2022-10-06 [facility] of 18:00:00 [facility] XR CHEST 1 VW 2022-10-06 [facility] of 18:00:00 [facility] CARDIAC CATHETERIZATION 2022-10-06 [facility] 15:30:17 [facility] ELECTROPHYSIOLOGY PROCEDURE 2022-10-06 [facility] 15:30:17 [facility] ELECTROPHYSIOLOGY PROCEDURE 2022-10-06 Bryan, [facility] ersity of 15:30:17 [facility] CARDIAC CATHETERIZATION 2022-10-06 [facility], [facility] 15:30:17 [facility] ELECTROPHYSIOLOGY PROCEDURE 2022-10-06 Bryan, [facility] ersity of 15:30:17 [facility] ELECTROPHYSIOLOGY PROCEDURE 2022-10-06 [facility] 15:30:17 [facility] CBC WITH DIFF 2022-10-03 [place] of 17:03:00 [facility] PROTHROMBIN TIME / INR 2022-10-03 Bryan, Universit y of 17:03:00 [facility] HB ECG ROUTINE & RHYTHM STRIP 2022-08-03 Bryan iversity of 19:36:45 [facility] ASSIGNMENT OF BENEFITS 2022-08-03 Doctor Unassigned, Univer sity of 17:21:[address] [facility] EXTERNAL PROVIDER RECORDS 2022-07-07 Doctor Unassigned, Uni versity of 05:01:[address] [facility] POCT GLUCOSE (AUTOMATED) 2022-06-25 [facility] ersity of 17:11:00 [facility] POCT GLUCOSE (AUTOMATED) 2022-06-25 [facility] ersity of 17:11:00 [facility] POCT GLUCOSE (AUTOMATED) 2022-06-25 [facility] ersity of 14:07:00 [facility] POCT GLUCOSE (AUTOMATED) 2022-06-25 [facility] ersity of 14:07:00 [facility] MAGNESIUM 2022-06-25 [facility] of 10:22:00 [facility] BASIC METABOLIC PANEL (NA, K, 2022-06-25 Marlys [place] Un iversity of CL, CO2, GLUCOSE, BUN, 10:22:00 [place] [facility] CREATININE, CA) Branch CBC WITHOUT DIFF 2022-06-25 [facility] 10:22:00 [facility] MAGNESIUM 2022-06-25 Gita [facility] of 10:22:00 [facility] BASIC METABOLIC PANEL (NA, K, 2022-06-25 [place]arlys [place] Un iversity of CL, CO2, GLUCOSE, BUN, 10:22:00 [place] [facility] CREATININE, CA) Branch CBC WITHOUT DIFF 2022-06-25 Gita [facility] of 10:22:00 [facility] POCT GLUCOSE (AUTOMATED) 2022-06-25 Alverto [facility] ersity of 01:29:00 [facility] POCT GLUCOSE (AUTOMATED) 2022-06-25 Alverto [facility] ersity of 01:29:00 [facility] POCT GLUCOSE (AUTOMATED) 2022-06-24 Al[facility]to [facility] ersity of 22:20:00 [facility] POCT GLUCOSE (AUTOMATED) 2022-06-24 Al[facility] ersity of 22:20:00 [facility] POCT GLUCOSE (AUTOMATED) 2022-06-24 Alverto [facility] ersity of 18:06:00 [facility] POCT GLUCOSE (AUTOMATED) 2022-06-24 Alverto [facility] ersity of 18:06:00 [facility] CBC WITHOUT DIFF 2022-06-24 Gita [facility] of 17:27:00 [facility] CBC WITHOUT DIFF 2022-06-24 Gita [facility] of 17:27:00 [facility] MAGNESIUM 2022-06-24 [facility] of 17:26:00 [facility] BASIC METABOLIC PANEL (NA, K, 2022-06-24 Gita Michelle Un iversity of CL, CO2, GLUCOSE, BUN, 17:26:00 [place] [facility] CREATININE, CA) Branch MAGNESIUM 2022-06-[facility] 17:[facility]00 [facility] BASIC METABOLIC PANEL (NA, K, 2022-06-24 Gita Michelle Un iversity of CL, CO2, GLUCOSE, BUN, 17:26:00 [place] [facility] CREATININE, CA) Branch ELECTROPHYSIOLOGY PROCEDURE 2022-06-24 Bryan, Univ ersity of 13:36:26 [facility]ED[facility] 2022-06-24 [facility] 13:36:26 [facility] PO[facility]SE (AUTOMATED) 2022-06-24 Alverto [facility] ersity of 13:01:00 [facility] POCT GLUCOSE (AUTOMATED) 2022-06-24 Alverto [facility] ersity of 13:01:00 [facility] POCT GLUCOSE (AUTOMATED) 2022-06-24 [place], [place] Uni versity of 03:58:00 [facility] POCT GLUCOSE (AUTOMATED) 2022-06-24 [place], [place] Uni versity of 03:58:00 [facility] URINALYSIS 2022-06-23 [facility] of 22:59:00 [facility] URINALYSIS 2022-06-23 [facility] of 22:59:00 [facility] POCT GLUCOSE (AUTOMATED) 2022-06-23 [place], [place] Uni versity of 22:38:00 [facility] POCT GLUCOSE (AUTOMATED) 2022-06-23 [place], [place] Uni versity of 22:38:00 [facility] POCT GLUCOSE (AUTOMATED) 2022-06-23 [place], [place] Uni versity of 17:07:00 [facility] POCT GLUCOSE (AUTOMATED) 2022-06-23 [place], [place] Uni versity of 17:07:00 [facility] POCT GLUCOSE (AUTOMATED) 2022-06-23 [place], [place] Uni versity of 12:31:00 [facility] POCT GLUCOSE (AUTOMATED) 2022-06-23 [place], [place] Uni versity of 12:31:00 [facility] MAGNESIUM 2022-06-23 Michelle Pelayo [place] of 09:22:00 [facility] BASIC METABOLIC PANEL (NA, K, 2022-06-23 Michelle Pelayo Un iversity of CL, CO2, GLUCOSE, BUN, 09:22:00 [place] [facility] CREATININE, CA) Branch CBC WITHOUT DIFF 2022-06-23 Michelle Pelayo [place] of 09:22:00 [facility] MAGNESIUM 2022-06-23 [facility] of 09:22:00 [facility] BASIC METABOLIC PANEL (NA, K, 2022-06-23 Michelle Pelayo Un iversity of CL, CO2, GLUCOSE, BUN, 09:22:00 [place] [facility] CREATININE, CA) Branch CBC WITHOUT DIFF 2022-06-23 [facility] of 09:22:00 [facility] HB ECG ROUTINE & RHYTHM STRIP 2022-06-23 aFwad Muñozdunn loring leonora [place] of 04:21:59 [facility] HB ECG ROUTINE & RHYTHM STRIP 2022-06-23 [facility] of 04:21:59 [facility] POCT GLUCOSE (AUTOMATED) 2022-06-23 [place], [place] Uni versity of 02:30:00 [facility] POCT GLUCOSE (AUTOMATED) 2022-06-23 [place], [place] Uni versity of 02:30:00 [facility] PHOSPHORUS 2022-06-22 [facility] of 22:43:00 [facility] PHOSPHORUS 2022-06-22 [facility] of 22:43:00 [facility] METANEPHRINES, PLASMA 2022-06-22 G[facility] of 22:42:00 [facility] POCT GLUCOSE (AUTOMATED) 2022-06-22 [place], [place] Uni versity of 21:59:00 [facility] POCT GLUCOSE (AUTOMATED) 2022-06-22 [place], [place] Uni versity of 21:59:00 [facility] POCT GLUCOSE (AUTOMATED) 2022-06-22 [place], [place] Uni versity of 16:52:00 [facility] POCT GLUCOSE (AUTOMATED) 2022-06-22 [place], [place] Uni versity of 16:52:00 [facility] POCT GLUCOSE (AUTOMATED) 2022-06-22 [place], [place] Uni versity of 13:13:00 [facility] POCT GLUCOSE (AUTOMATED) 2022-06-22 [place], [place] Uni versity of 13:13:00 [facility] MAGNESIUM 2022-06-22 [facility] of 10:07:00 [facility] FERRITIN SERUM 2022-06-22 [facility] of 10:07:00 [facility] VITAMIN B12, LEVEL 2022-06-22 [facility] of 10:07:00 [facility] BASIC METABOLIC PANEL (NA, K, 2022-06-22 Bin Gomez iversity of CL, CO2, GLUCOSE, BUN, 10:07:00 [place] [facility] CREATININE, CA) Branch IRON PANEL 2022-06-22 [facility] 10:07[facility]00 [facility] CBC WITH DIFF 2022-06-22 [facility] 10:07:00 [facility] MAGNESIUM 2022-06-22 [facility] of 10:07:00 [facility] FERRITIN SERUM 2022-06-22 [facility] of 10:07:00 [facility] VITAMIN B12, LEVEL 2022-06-22 [facility] of 10:07:00 [facility] BASIC METABOLIC PANEL (NA, K, 2022-06-22 Bin Gomez iversity of CL, CO2, GLUCOSE, BUN, 10:07:00 [place] [facility] ical CREATININE, CA) Branch IRON PANEL 2022-06-22 [facility] 10:07:00 [facility] CBC WITH DIFF 2022-06-22 [facility] of 10:07:00 [facility] POCT GLUCOSE (AUTOMATED) 2022-06-22 Ca Meléndez Uni versity of 00:54:00 [facility] POCT GLUCOSE (AUTOMATED) 2022-06-22 Ca Meléndez Uni versity of 00:54:00 [facility] POCT GLUCOSE (AUTOMATED) 2022-06-21 Srinath Cohen ity of 21:48:00 [facility] POCT GLUCOSE (AUTOMATED) 2022-06-21 Srinath Cohen Univers ity of 21:48:00 [facility] HB ECG ROUTINE & RHYTHM STRIP 2022-06-21 Bin Gomez Un iversity of 19:13:25 [facility] HB ECG ROUTINE & RHYTHM STRIP 2022-06-21 Bin Gomez Un iversity of 19:13:25 [facility] TRANSTHORACIC ECHO (TTE) 2022-06-21 Bin Gomez Univers ity of COMPLETE W/ CONTRAST 16:58:45 [facility] TRANSTHORACIC ECHO (TTE) 2022-06-21 Bin Gomez Univers ity of COMPLETE W/ CONTRAST 16:58:45 [facility] POCT GLUCOSE (AUTOMATED) 2022-06-21 Srinath Cohen Univers ity of 16:35:00 [facility] POCT GLUCOSE (AUTOMATED) 2022-06-21 Srinath Cohen [facility] ity of 16:35:00 [facility] THYROID STIMULATING HORMONE 2022-06-21 [facility] ersity of 12:08:00 [facility] COMP. METABOLIC PANEL (35423) 2022-06-21 Anastasiya Tapia [place] of 12:08:00 [facility] CBC WITH DIFF 2022-06-21 Anastasiya Tapia [place] of 12:08:00 [facility] GLYCOSYLATED HEMOGLOBIN (A1C) 2022-06-21 [facility] iversity of 12:08:00 [facility] THYROID STIMULATING HORMONE 2022-06-21 [facility] ersity of 12:08:00 [facility] COMP. METABOLIC PANEL ([id number]) 2022-06-21 Anastasiya Tapia [place] of 12:08:00 [facility] CBC WITH DIFF 2022-06-21 Anastasiya Tapia [place] of 12:08:00 [facility] GLYCOSYLATED HEMOGLOBIN (A1C) 2022-06-21 Bin Gomez iversity of 12:08:00 [facility] COVID-19 (ID NOW RAPID 2022-06-21 Anastasiya Tapia [facility] sity of TESTING) 07:07:00 [facility] LAB ONLY COVID INTERPRETATION 2022-06-21 Anastasiya Tapia [place] of 07:07:00 [facility] COVID-19 (ID NOW RAPID 2022-06-21 Anastasiya Tapia [facility] sity of TESTING) 07:07:00 [facility] LAB ONLY COVID INTERPRETATION 2022-06-21 Anastasiya Tapia [place] of 07:07:00 [facility] LACTIC ACID WHOLE BLOOD 2022-06-21 Srinath Cohen [facility] ty of 04:05:00 [facility] LACTIC ACID WHOLE BLOOD 2022-06-21 [place] [facility] ty of 04:05:[address] [facility] CT HEAD WO CONTRAST 2022-06-21 Cohen, [facility] o f 00:42:20 [facility] CT HEAD WO CONTRAST 2022-06-21 [place] [facility] o f 00:42:20 [facility] ELECTROENCEPHALOGRAM 2022-06-21 [facility] of 00:00:00 [facility] ELECTROENCEPHALOGRAM 2022-06-21 [facility] of 00:00:00 [facility] LACTIC ACID WHOLE BLOOD 2022-06-20 [facility] 23:59:00 [facility] LACTIC ACID WHOLE BLOOD 2022-06-20 [facility] of 23:59:00 [facility] CT ANGIOGRAM ABDOMEN/PELVIS 2022-06-20 [facility] ersity of 20:21:56 [facility] CT ANGIOGRAM ABDOMEN/PELVIS 2022-06-20 [facility] ersity of 20:21:56 [facility] URINALYSIS 2022-06-20 Singer [facility] of 19:04:00 [facility] URINE CULTURE 2022-06-20 Singer [facility] of 19:04:00 [facility] URINALYSIS 2022-06-20 Singer [facility] of 19:04:00 [facility] URINE CULTURE 2022-06-20 Singer [facility] of 19:04:00 [facility] XR CHEST 1 VW 2022-06-20 Singer [facility] of 18:50:20 [facility] XR CHEST 1 VW 2022-06-20 Singer [facility] of 18:50:20 [facility] BLOOD CULTURE SCREEN 2022-06-20 [facility] of 18:46:00 [facility] BLOOD CULTURE SCREEN 2022-06-20 Singer [facility] of 18:46:00 [facility] BLOOD CULTURE SCREEN 2022-06-20 Singer [facility] of 18:39:00 [facility] TROPONIN I 2022-06-20 [facility] of 18:39:00 [facility] COMP. METABOLIC PANEL ([id number]) 2022-06-20 Srinath Cohen iversity of 18:39:00 [facility] CBC WITH DIFF 2022-06-20 Srinath Cohen of 18:39:00 [facility] BLOOD CULTURE SCREEN 2022-06-20 [facility] of 18:39:00 [facility] TROPONIN I 2022-06-20 [facility] of 18:39:00 [facility] COMP. METABOLIC PANEL ([id number]) 2022-06-20 Srinath Cohen iversity of 18:39:00 [facility] CBC WITH DIFF 2022-06-20 Singer [facility] of 18:39:00 [facility] EKG-12 LEAD 2022-06-20 Singer [facility] of 18:38:36 [facility] EKG-12 LEAD 2022-06-20 Singer [facility] of 18:38:36 [facility] LACTIC ACID WHOLE BLOOD 2022-06-20 [facility] of 18:38:00 [facility] LACTIC ACID WHOLE BLOOD 2022-06-20 [facility] ty of 18:38:00 [facility] EMERGENCY DEPARTMENT 2022-06-20 Doctor Unassigned, Universi ty of DOCUMENTS 05:01:[address] [facility] HOSPITAL ADMISSION 2022-06-20 Doctor Unassigned, [facility] 05:01:[address] [facility] ASSIGNMENT OF BENEFITS 2021-05-07 Doctor Unassigned, [facility] sity of 21:31:[address] [facility] Hysterectomy [facility] Plan of Care Planned Activity [...] 00:00:00 [facility] (procedure[facility] [code = 71459056] Future Scheduled 2020-09-[address] [facility] 00:00[facility]00 [facility] (procedure) [code = 23895128] Future Scheduled 2020-09-[address] [facility] 00:00:00 [facility] (procedure) [code = 77717215] Future Scheduled 2020-09-[address] [facility] 00:00:00 [facility] (procedure) [code = 01840548] Future Scheduled 2020-09-[address] [facility] 00:00:00 [facility] (procedure) [code = 70262780] Future Scheduled 2020-09-[address] [facility] 00:00:00 [facility] (procedure) [code = 61360302] Future Scheduled 2020-09-[address] [facility] 00:00:00 [facility] (procedure) [code = 87929420] Future Scheduled 2020-09-[address] [facility] 00:00:00 [facility] (procedure) [code = 42607908] Future Scheduled 2020-09-[address] [facility] 00:00:00 [facility] (procedure) [code = 74202260] Future Scheduled 2020-09-[address] [facility] 00:00:00 [facility] (procedure) [code = 02915166] Future Scheduled 2020-09-[address] [...] 00:00:00 (1 of 1 - Medical Center [id number] PCV13) [code = PNEUMOCOCCAL 65+ YRS (1 of 1 - [id number] PCV13)] Future Scheduled 2002 PNEUMOCOCCAL 65+ YRS [facility] Test 00:00:00 (1 of 1 - Medical Center [id number] PCV13) [code = PNEUMOCOCCAL 65+ YRS (1 of 1 - [id number] PCV13)] Future Scheduled 1999-11-11 MEDICARE ANNUAL [facility] [...] 00:00:00 protein (procedure) Medical Center [code = 258522586] Future Scheduled 1947 DIABETIC EYE EXAM [facility] Test 00:00:00 [code = DIABETIC EYE Medical Center EXAM] Future Scheduled 1947 Urine screening for [facility] Test 00:00:00 protein (procedure) Medical Center [code = 217174366] Future Scheduled 1947 DIABETIC EYE EXAM [facility] Test 00:00:00 [code = DIABETIC EYE Medical Center EXAM] Future Scheduled 1947 Urine screening for [facility] Test 00:00:00 protein (procedure) Medical Center [code = 887534761] Future Scheduled 1947 DIABETIC EYE EXAM [facility] Test 00:00:00 [code = DIABETIC EYE Medical Center EXAM] Future Scheduled 1947 Urine screening for [facility] Test 00:00:00 protein (procedure) Medical Center [code = 568726417] Future Scheduled 1947 DIABETIC EYE EXAM [facility] Test 00:00:00 [code = DIABETIC EYE Medical Center EXAM] Future Scheduled 1947 Urine screening for [facility] Test 00:00:00 protein (procedure) Medical Center [code = 155200787] Future Scheduled 1947 DIABETIC EYE EXAM [facility] Test 00:00:00 [code = DIABETIC EYE Medical Center EXAM] Future Scheduled 1947 Urine screening for [facility] Test 00:00:00 protein (procedure) Medical Center [code = 124255462] Future Scheduled 1947 DIABETIC EYE EXAM [facility] Test 00:00:00 [code = DIABETIC EYE Medical Center EXAM] Future Scheduled 1947 Urine screening for [facility] Test 00:00:00 protein (procedure) Medical Center [code = 636849217] Future Scheduled 1947 DIABETIC EYE EXAM [facility] Test 00:00:00 [code = DIABETIC EYE Medical Center EXAM] Future Scheduled 1947 Urine screening for [facility] Test 00:00:00 protein (procedure) Medical Center [code = 401064796] Future Scheduled 1947 DIABETIC EYE EXAM [facility] Test 00:00:00 [code = DIABETIC EYE Medical Center EXAM] Future Scheduled 1947 Urine screening for [facility] Test 00:00:00 protein (procedure) Medical Center [code = 794768909] Future Scheduled 1947 DIABETIC EYE EXAM [facility] Test 00:00:00 [code = DIABETIC EYE Medical Center EXAM] Future Scheduled 1947 Urine screening for [facility] Test 00:00:00 protein (procedure) Medical Center [code = 272368134] Future Scheduled 1943 PNEUMOCOCCAL 65+ YRS [facility] [...] Type Clinicians Facility Department ID 2022-10-12 Outpatient [facility] [id number] [place] 11:19:01 [id number] [facility] 2020-03-24 [facility] [id number] [facility] 23:52:00 [facility] Med 2022-12-22 2022-12-22 [facility] [id number] Univers 00:00:00 00:00:00 GILEBRT ity [facility] 2022-11-11 2022-11-11 [facility] ELIAS Hylton [id number] Univers 07:05:00 23:59:00 Encounter Inez Montejo [id number] ity of [facility] 4.2.7.2.686 Shawn as [id number] [facility] [address] [place] 2022-11-11 2022-11-11 Outpatient [facility] ACO [id number] Univers 00:00:00 23:59:00 INEZ ity [facility] 2022-11-11 2022-11-11 Orders Doctor NEWMAN [id number] Univers 00:00:00 00:00:00 Only Unassigned, RAYA [id number] ity of [place] [facility] 4.2.7.2.686 Shawn as [id number] [facility] [address] 2022-11-10 2022-11-10 Orders Doctor NEWMAN [id number] Univers 00:00:00 00:00:00 Only Unassigned, RAYA [id number] ity of [place] [facility] 4.2.7.2.686 Shawn as [id number] [facility] [address] 2022-10-24 2022-11-01 Inpatient X [facility]HEL [facility] [id number] Univers 17:16:00 17:33:[address] [facility] 2022-10-24 2022-11-01 [facility] SukumarloreneLiza sloan VIKTORIA 1.2.840.11 [id number] Univers 17:16:00 17:33:00 Encounter Raul Rosen RAYA [id number] ity of Jarvis Milligan [facility] 4.2.7.2.686 [place] [id number] [facility] [address] 2022-10-10 2022-10-13 Inpatient E APRYL, [facility] 7501 [facility] 13:24:00 18:20:00 CASSIUS 2022-10-11 2022-10-11 Telephone [facility] 1.2.840.114 [id number] Univers 00:00:00 00:00:00 [employer] [id number] ity of [facility] 4.2.7.2.686 [place] [id number] [facility] [address] OFFICE BUILDING 2022-10-06 2022-10-08 Outpatient R KATE, [facility] [id number] Univers 06:20:00 13:18:[address] [facility] 2022-10-06 2022-10-08 [facility] Harini Betancourt 1 .[id number] Univers 06:20:00 13:18:00 Encounter Dayami Love 350.1.1 3.10 ity of [facility] 4.2.7.2.686 Shawn as [id number] [facility] [address] 2022-10-06 2022-10-06 Surgery VIKTORIA Beatncourt 1.2.840.114 [id number] Univers 08:00:00 09:45:00 [facility] 350.1.13.10 ity of [facility] [id number] Shawn as [id number] [facility] [address] 2022-10-03 2022-10-03 Communications Project Manager Mark Kahn Lab Main [facility] 1.2.8 40.114 [id number] Univers 10:30:00 10:45:00 Visit Harini Betancourt 350.1 .13.10 ity [facility] 4.2.7.2.686 [place] [id number] Fl dical [facility] [address] [facility] 2022-10-03 2022-10-03 Outpatient R HARINI BETANCOURT [facility] [id number] Univers 10:30:00 10:30:00 HARINI BETANCOURT ity [facility] 2022-09-13 2022-09-13 Telephone VIKTORIA Betancourt 1.2.840.114 [id number] Univers 00:00:00 00:00:00 Chockalinanika RAYA 350.1.13.10 ity of [facility] 4.2.7.2.686 Shawn as [id number] [facility] [address] [place] 2022-08-08 2022-08-08 Telephone VIKTORIA Betancourt 1.2.840.114 [id number] Univers 00:00:00 00:00:00 [place] RAYA 350.1.13.10 ity of [facility] 4.2.7.2.686 Shawn as [phone] [facility] [address] 2022-08-03 2022-08-03 Hospital VIKTORIA Betancourt 1.2.840.114 [id number] Univers 11:00:00 23:59:00 Encounter Chockalinanika RAYA 350.1.13.10 ity of [facility] 4.2.7.2.686 Shawn as [phone] [facility] [address] 2022-08-03 2022-08-03 Office SHARIF Betancourt 1.2.840.114 [id number] Univers 13:00:00 13:15:00 Visit Stanleysneha [facility] 350.1.13.10 ity of [facility] 4.2.7.2.[place] [phone] [facility] [address] 2022-08-03 2022-08-03 Outpatient R HARINI BETANCOURT [facility] [id number] Univers 13:00:00 13:00:00 HARINI BETANCOURT ity [facility] 2022-08-03 2022-08-03 Orders Doctor TRENT 1.2.840.114 [id number] Univers 00:00:00 00:00:00 Only Unassigned, RAYA 350.1.13.10 ity of [facility] 4.2.7.2.686 Shawn as [phone] [address] 2022-07-14 2022-07-14 Outpatient R HARINI BETANCOURT [facility] [id number] Univers 16:30:12 23:59:00 HARINI BETANCOURT ity [facility] 2022-07-14 2022-07-14 Hospital VIKTORIA Betancourt 1.2.840.114 [id number] Univers 16:30:12 23:59:00 Encounter Maria Elena RAYA 350.1.13.10 ity of [facility] 4.2.7.2.686 [place] as [phone] [place] [address] [place] 2022-07-14 2022-07-14 Telephone VIKTORIA Betancourt 1.2.840.114 [id number] Univers 00:00:00 00:00:00 Choelgin RAYA 350.1.13.10 ity of [facility] 4.2.7.2.686 Shawn as [id number] [place] [address] [place] 2022-07-07 2022-07-07 Orders Doctor TRENT 1.2.840.114 [id number] Univers 00:00:00 00:00:00 Only Unassigned, RAYA 350.1.13.10 ity of [facility] 4.2.7.2.686 Shawn as [phone] [address] 2022-06-27 2022-06-27 Transition ROSE Macias 1.2.840.114 [id number] Univers 00:00:00 00:00:00 of Care Jamil SHEPHERD 350.1.13.10 [place] [id number] [facility] [address] 2022-06-20 2022-06-25 Inpatient X ALVERTO [facility] [id number] Univers 13:17:00 13:00:[address] of [facility] 2022-06-20 2022-06-25 Hospital Srinath Cohen 1.2.840.1 14 [id number] Univers 13:17:00 13:00:00 Encounter Acacia Del Toro RAYA 350.1.13. 10 ity [facility] 4.2.7.2.686 [place] [phone] [facility] [address] 2022-06-24 2022-06-24 Surgery VIKTORIA Betancourt 1.2.840.114 [id number] Univers 08:35:00 09:20:00 Maria Elena DOS SANTOS 350.1.13.10 ity [facility] 4.2.7.2.686 Shawn as [phone] [facility] [address] 2021-05-10 2021-05-10 Nurse Therapy, Kevin Suhid [facility] 1.2. 840.114 [id number] Univers 19:27:33 20:27:33 Visit Unknown, [facility].1.13.10 [facility] 4.2.7.2.686 Shawn as Terrell?Blea [phone] [address] Medical Office Building 2021-05-10 2021-05-10 Outpatient R UNKNOWN, [facility] [id number] Univers 19:30:00 19:30:[address] ity of [facility] 2021-05-09 2021-05-09 Telephone TRENT Tariq 1.2.009.136 [id number] Univers 00:00:00 00:00:00 Gesmina DOS SANTOS 350.1.13.10 ity [facility] 4.2.7.2.686 Shawn as [phone] [facility] [address] 2021-05-07 2021-05-07 Laboratory Only, Ang Db Test [facility] 1.2.8 40.114 [id number] Univers 17:11:44 17:31:44 Only [facility] 350.1.13.10 ity of [place] 4.2.7.2.686 Shawn as Terrell?Blea [id number] [address] Medical Office Building 2021-05-07 2021-05-07 [id number] Univers 17:15:00 17:15:00 [facility] 2021-[facility] 2021-05-07 [facility] [id number] Univers 16:20:00 16:20:00 JUD [facility] 2021-05-07 2021-05-07 Orders Doctor TRENT 1.2.840.114 [id number] 00:00:00 00:00:00 Only Unassigned, RAYA 350.1.13.10 ity of [place] [facility] 4.2.7.2.686 Shawn as [phone] [address] 2018-04-03 2018-04-05 Phone nullFlavo MNA [id number] Memoria 20:41:00 04:59:59 Message r Neurosurger 07 l y [facility] 2018-03-28 2018-03-30 Phone nullFlavo MNA [id number] Memoria 15:42:00 04:59:59 Message r Neurosurger 06 l y [facility] 2018-03-26 2018-03-28 Phone nullFlavo MNA [id number] 55 Memoria 16:02:00 04:59:59 Message r Neurosurger 05 l y [facility] 2018-03-22 2018-03-22 Ambulatory nullFlavo MNA [id number] Memoria 17:15:00 17:15:00 Pre-Reg r Neurosurger 01 l y [facility] 2018-03-19 2018-03-21 Phone nullFlavo MNA [id number] 55 Memoria 14:29:00 04:59:59 Message r Neurosurger 04 l y [facility] 2018-03-15 2018-03-17 Phone nullFlavo MNA [id number] 55 Memoria 21:01:00 04:59:59 Message r Neurosurger 03 l y [facility] 2018-03-07 2018-03-09 Phone nullFlavo MNA [id number] 55 Memoria 16:18:00 04:59:59 Message r Neurosurger 02 l y [facility] 2018-03-01 2018-03-03 Phone nullFlavo MNA [id number] 55 Memoria 16:12:00 04:59:59 Message r Neurosurger 01 l y [facility] 2018-03-01 2018-03-03 Phone nullFlavo MNA [id number] 55 Memoria 14:43:00 04:59:59 Message r Neurosurger 00 l y [facility] 2018-03-01 2018-03-01 Ambulatory nullFlavo MNA [id number] Memoria 16:15:00 16:15:00 Pre-Reg r Neurosurger 00 l y [facility] 2018-02-19 2018-02-27 Inpatient Douglaso [place] [id number] Memoria 07:05:00 21:19:00 [place] 00 l [facility] 2018-02-05 2018-02-13 Inpatient Douglaso El[place] [id number] Memoria 22:15:00 16:22:00 [place] 48 [facility] Results Test Description Test Time Test Comments Results Result Comments Source POCT GLUCOSE (AUTOMATED) 2022-11-01 17:45:48 Test Item Value Reference Range Interpretation Comme nts POCT GLU (test code = 4500673719) 377 mg/dL 70-110 H Lab Interpretation (test code = 59636-1) Abnormal [facility] GLUCOSE (AUTOMATED)2022-11-01 14:03:36 Test Item Value Reference Range Interpretation Comments POCT GLU (test code = 8983933038) 218 mg/dL 70-110 H Lab Interpretation (test code = Abnormal 71436-8) [facility] GLUCOSE (AUTOMATED)2022-11-01 02:05:30 Test Item Value Reference Range Interpretation Comments POCT GLU (test code = 4319510802) 195 mg/dL 70-110 H Lab Interpretation (test code = Abnormal 30455-2) [facility] GLUCOSE (AUTOMATED)2022-10-31 22:18:04 Test Item Value Reference Range Interpretation Comments POCT GLU (test code = 0269740596) 200 mg/dL 70-110 H Lab Interpretation (test code = Abnormal 07494-8) [facility] GLUCOSE (AUTOMATED)2022-10-31 17:40:15 Test Item Value Reference Range Interpretation Comments POCT GLU (test code = 3397064440) 231 mg/dL 70-110 H Lab Interpretation (test code = Abnormal 34634-6) [facility] GLUCOSE (AUTOMATED)2022-10-31 14:36:10 Test Item Value Reference Range Interpretation Comments POCT GLU (test code = 7901784642) 199 mg/dL 70-110 H Lab Interpretation (test code = Abnormal 11814-5) [facility] GLUCOSE (AUTOMATED)2022-10-31 03:28:00 Test Item Value Reference Range Interpretation Comments POCT GLU (test code = 4586789372) 198 mg/dL 70-110 H Lab Interpretation (test code = Abnormal 20138-3) [facility] GLUCOSE (AUTOMATED)2022-10-30 17:40:57 Test Item Value Reference Range Interpretation Comments POCT GLU (test code = 6700970090) 275 mg/dL 70-110 H Lab Interpretation (test code = Abnormal 60830-4) [facility] GLUCOSE (AUTOMATED)2022-10-30 13:56:28 Test Item Value Reference Range Interpretation Comments POCT GLU (test code = 6644693973) 191 mg/dL 70-110 H Lab Interpretation (test code = Abnormal 31853-3) [facility] WITHOUT [id number] 11:10:09 Test Item Value Reference Range Interpretation Comments WBC (test code = 6690-2) 7.95 See_Comment [A utomated message] The system Connectivity generated this result transmit timur reference range : 4.30 - 11.10 10*3/?L. The reference range was not used to interpret this result as normal/abnormal . RBC (test code = 789-8) 3.22 See_Comment L [Au tomated message] The system Connectivity generated this result transmit timur reference range [...] 277 See_Comment [Au tomated message] The system Connectivity generated this result transmit timur reference range : 166 - 358 10*3/?L. The reference range was not used to interpret this result as normal/abnormal . MPV (test code = 8.4 fL 9.5-12.9 L 13140-2) RDW-CV (test code = 13.3 % 12.0-15.5 788-0) RDW-SD (test code = 41.0 fL 39.0-49.9 79818-9) NRBC x10^3 (test code = See_Comment [Au tomated message] 7377286482) The system Connectivity generated this result transmit timur reference range : 10*3/?L. The reference range was not used to interpret this result as normal/abnormal . NRBC/100 WBC (test code 0.0 See_Comment [Au tomated message] = 5689085585) The system Scl[employer] generated this result transmit timur reference range : 0.0 - 10.0 /100 WBC s. The reference r fernando was not used to interpret this result as normal/abnormal . IPF % (test code = 9133481270) Lab Interpretation (test Abnormal code = 04837-0) [facility] GLUCOSE (AUTOMATED)2022-10-30 02:05:21 Test Item Value Reference Range Interpretation Comments POCT GLU (test code = 5064673334) 256 mg/dL 70-110 H Lab Interpretation (test code = Abnormal 64799-7) [facility] GLUCOSE (AUTOMATED)2022-10-29 22:52:51 Test Item Value Reference Range Interpretation Comments POCT GLU (test code = 3364117829) 193 mg/dL 70-110 H Lab Interpretation (test code = Abnormal 66770-4) [facility] GLUCOSE (AUTOMATED)2022-10-29 18:00:29 Test Item Value Reference Range Interpretation Comments POCT GLU (test code = 3908232268) 328 mg/dL 70-110 H Lab Interpretation (test code = Abnormal 55265-5) [facility] GLUCOSE (AUTOMATED)2022-10-29 14:03:49 Test Item Value Reference Range Interpretation Comments POCT GLU (test code = 5840822986) 214 mg/dL 70-110 H Lab Interpretation (test code = Abnormal 71496-2) [facility] GLUCOSE (AUTOMATED)2022-10-29 02:04:31 Test Item Value Reference Range Interpretation Comments POCT GLU (test code = 240 mg/dL 70-110 H Notifi ed Provider [id number]) Lab Interpretation (test Abnormal code = 98179-3) [facility] GLUCOSE (AUTOMATED)2022-10-28 23:29:03 Test Item Value Reference Range Interpretation Comments POCT GLU (test code = 7763941266) 227 mg/dL 70-110 H Lab Interpretation (test code = Abnormal 86351-8) [facility] GLUCOSE (AUTOMATED)2022-10-28 18:26:14 Test Item Value Reference Range Interpretation Comments POCT GLU (test code = 5274953878) 241 mg/dL 70-110 H Lab Interpretation (test code = Abnormal 70820-7) [facility] GLUCOSE (AUTOMATED)2022-10-28 14:37:46 Test Item Value Reference Range Interpretation Comments POCT GLU (test code = 3357931966) 190 mg/dL 70-110 H Lab Interpretation (test code = Abnormal 77238-5) [facility] METABOLIC PANEL (NA, K, CL, CO2, GLUCOSE, BUN, CREATININE, CA)2022-10-28 11:33:48 Test Item Value Reference Range Interpretation Comments NA (test code = 128 mmol/L 135-145 L 5169732934) K (test code = 4.1 mmol/L 3.5-5.0 8928422848) CL (test code = 99 mmol/L 98-108 3575064040) CO2 TOTAL (test code = 24 mmol/L 23-31 6558165360) AGAP (test code = 5 2-16 3158136833) BUN (test code = 15 mg/dL 7-23 1349105013) GLUCOSE (test code = 169 mg/dL 70-110 H 4063526761) CREATININE (test code = 0.55 mg/dL 0.50-1.04 6666850934) CALCIUM (test code = 8.1 mg/dL 8.6-10.6 L 4602903342) eGFR (test code = 105.0 mL/min/1.73m2 4619443571) WINDY (test code = WINDY) Association of [...] tests). Lab Interpretation Abnormal (test code = 03698-9) [facility] WITH [id number] 10:48:02 Test Item Value Reference Range Interpretation Comments WBC (test code = 6.28 See_Comment [Automated 2098-2) message] The sy stem which generated this result transmitted reference range : 4.30 - 11.10 10*3/?L. The reference range was not used to interpret this result as normal/abnormal . RBC (test code = 2.94 See_Comment L [Automated 442-5) message] The sy stem which generated this [...] RDW-SD (test code = 40.9 fL 39.0-49.9 65162-9) RDW-CV (test code = 13.6 % 12.0-15.5 788-0) PLT (test code = 287 See_Comment [Automated 777-3) message] The sy stem which generated this result transmitted reference range : 166 - 358 10*3/ ?L. The reference r fernando was not used to interpret this result as normal/abnormal . MPV (test code = 9.3 fL 9.5-12.9 L 29810-8) NRBC/100 WBC (test 0.0 See_Comment [Automat ed code = 5088329475) message] The system which generated this result transmitted reference range : 0.0 - 10.0 /100 WBCs. The refer ence range was not u sed to interpret th is result as normal/abnormal . NRBC x10^3 (test code See_Comment [Auto mated = 5863834477) message] The s ystem which generated this result transmitted reference range : 10*3/?L. The reference range was not used to interpret this result as normal/abnormal . GRAN MAT (NEUT) % 55.1 % (test code = 770-8) IMM GRAN % (test code 0.50 % = 4475061899) LYMPH % (test code = 31.2 % 736-9) MONO % (test code = 11.6 % 5905-5) EOS % (test code = 1.4 % 713-8) BASO % (test code = 0.2 % 706-2) GRAN MAT x10^3(ANC) 3.46 10*3/uL 1.88-7.09 (test code = 5515764741) IMM GRAN x10^3 (test 0.03 10*3/uL 0.00-0.06 code = 4689222119) LYMPH x10^3 (test code 1.96 10*3/uL 1.32-3.29 = 731-0) MONO x10^3 (test code 0.73 10*3/uL 0.33-0.92 = 742-7) EOS x10^3 (test code = 0.09 10*3/uL 0.03-0.39 711-2) BASO x10^3 (test code 0.01-0.07 = 704-7) Lab Interpretation Abnormal (test code = 89098-4) [facility] GLUCOSE (AUTOMATED)2022-10-28 02:11:22 Test Item Value Reference Range Interpretation Comments POCT GLU (test code = 0110964198) 268 mg/dL 70-110 H Lab Interpretation (test code = Abnormal 00258-8) [facility] GLUCOSE (AUTOMATED)2022-10-27 22:40:13 Test Item Value Reference Range Interpretation Comments POCT GLU (test code = 0033410072) 151 mg/dL 70-110 H Lab Interpretation (test code = Abnormal 49083-8) [facility] GLUCOSE (AUTOMATED)2022-10-27 17:35:16 Test Item Value Reference Range Interpretation Comments POCT GLU (test code = 3987337676) 239 mg/dL 70-110 H Lab Interpretation (test code = Abnormal 33897-5) [facility] GLUCOSE (AUTOMATED)2022-10-27 14:42:18 Test Item Value Reference Range Interpretation Comments POCT GLU (test code = 7640284058) 221 mg/dL 70-110 H Lab Interpretation (test code = Abnormal 88709-5) [facility] GLUCOSE (AUTOMATED)2022-10-27 03:32:29 Test Item Value Reference Range Interpretation Comments POCT GLU (test code = 258 mg/dL 70-110 H Notifi ed Provider [id number]) Lab Interpretation (test Abnormal code = 37358-3) [facility] GLUCOSE (AUTOMATED)2022-10-26 22:32:49 Test Item Value Reference Range Interpretation Comments POCT GLU (test code = 176 mg/dL 70-110 H Notifi ed Provider [id number]) Lab Interpretation (test Abnormal code = 89155-7) [facility] GLUCOSE (AUTOMATED)2022-10-26 17:34:42 Test Item Value Reference Range Interpretation Comments POCT GLU (test code = 307 mg/dL 70-110 H Notifi ed Provider [id number]) Lab Interpretation (test Abnormal code = 76837-8) [facility] GLUCOSE (AUTOMATED)2022-10-26 13:30:00 Test Item Value Reference Range Interpretation Comments POCT GLU (test code = 239 mg/dL 70-110 H Notifi ed Provider [id number]) Lab Interpretation (test Abnormal code = 81793-9) [facility] GLUCOSE (AUTOMATED)2022-10-26 03:40:06 Test Item Value Reference Range Interpretation Comments POCT GLU (test code = 225 mg/dL 70-110 H Notifi ed Provider [id number]) Lab Interpretation (test Abnormal code = 77370-6) [facility] GLUCOSE (AUTOMATED)2022-10-26 01:50:16 Test Item Value Reference Range Interpretation Comments POCT GLU (test code = 2958644894) 240 mg/dL 70-110 H Lab Interpretation (test code = Abnormal 29470-6) [facility] GLUCOSE (AUTOMATED)2022-10-25 22:16:54 Test Item Value Reference Range Interpretation Comments POCT GLU (test code = 2680438040) 188 mg/dL 70-110 H Lab Interpretation (test code = Abnormal 49602-5) [facility] GLUCOSE (AUTOMATED)2022-10-25 17:34:44 Test Item Value Reference Range Interpretation Comments POCT GLU (test code = 176 mg/dL 70-110 H Notifi ed Provider [id number]) Lab Interpretation (test Abnormal code = 59661-8) [facility] GLUCOSE (AUTOMATED)2022-10-25 14:26:21 Test Item Value Reference Range Interpretation Comments POCT GLU (test code = 7232783427) 205 mg/dL 70-110 H Lab Interpretation (test code = Abnormal 54467-5) [facility] METABOLIC PANEL (NA, K, CL, CO2, GLUCOSE, BUN, CREATININE, CA)2022-10-25 10:29:58 Test Item Value Reference Range Interpretation Comments NA (test code = 127 mmol/L 135-145 L 4609054538) K (test code = 3.8 mmol/L 3.5-5.0 2813903627) CL (test code = 90 mmol/L 98-108 L 6958819893) CO2 TOTAL (test code = 29 mmol/L 23-31 9048557581) AGAP (test code = 8 2-16 3671209401) BUN (test code = 21 mg/dL 7-23 6017859671) GLUCOSE (test code = 203 mg/dL 70-110 H 2353275808) CREATININE (test code = 0.68 mg/dL 0.50-1.04 2895636450) CALCIUM (test code = 8.8 mg/dL 8.6-10.6 0358603666) eGFR (test code = 82.2 mL/min/1.73m2 8443873621) WINDY (test code = WINDY) Association of [...] tests). Lab Interpretation Abnormal (test code = 59336-3) [facility]19 Test Item Value Reference Range Interpretation Comments APTT Patient (test code 63 See_Comment H [Au tomated message] = 3173-2) The system whic h generated this result transmitted ref erence range: 26 - 36 Seconds. The reference range was not used to int erpret this result as normal/abnormal . Lab Interpretation (test Abnormal code = 69643-7) [facility] 10:25:19 Test Item Value Reference Range Interpretation Comments Fibrinogen (test code = 7261460326) 574 mg/dL 167-453 H Lab Interpretation (test code = Abnormal 71412-5) [facility] / [id number] 10:25:18 Test Item Value Reference Range Interpretation [...] tions. Lab Interpretation (test Normal code = 33845-5) [facility] with [id number] 10:19:38 Test Item Value Reference Range Interpretation Comments WBC (test code = 9.89 See_Comment [Automated 4090-2) message] The sy stem which generated this result transmitted reference range : 4.30 - 11.10 10*3/?L. The reference range was not used to interpret this result as normal/abnormal . RBC (test code = 3.78 See_Comment L [Automated 549-8) message] The sy stem which generated this [...] RDW-SD (test code = 39.8 fL 39.0-49.9 76249-0) RDW-CV (test code = 13.3 % 12.0-15.5 788-0) PLT (test code = 333 See_Comment [Automated 777-3) message] The sy stem which generated this result transmitted reference range : 166 - 358 10*3/ ?L. The reference r fernando was not used to interpret this result as normal/abnormal . MPV (test code = 9.3 fL 9.5-12.9 L 39740-6) NRBC/100 WBC (test 0.0 See_Comment [Automat ed code = 9744082364) message] The system which generated this result transmitted reference range : 0.0 - 10.0 /100 WBCs. The refer ence range was not u sed to interpret th is result as normal/abnormal . NRBC x10^3 (test code See_Comment [Auto mated = 0797985876) message] The s ystem which generated this result transmitted reference range : 10*3/?L. The reference range was not used to interpret this result as normal/abnormal . GRAN MAT (NEUT) % 70.8 % (test code = 770-8) IMM GRAN % (test code 0.40 % = 8977014414) LYMPH % (test code = 18.2 % 736-9) MONO % (test code = 10.1 % 5905-5) EOS % (test code = 0.3 % 713-8) BASO % (test code = 0.2 % 706-2) GRAN MAT x10^3(ANC) 7.00 10*3/uL 1.88-7.09 (test code = 4913483484) IMM GRAN x10^3 (test 0.04 10*3/uL 0.00-0.06 code = 2715948947) LYMPH x10^3 (test code 1.80 10*3/uL 1.32-3.29 = 731-0) MONO x10^3 (test code 1.00 10*3/uL 0.33-0.92 H = 742-7) EOS x10^3 (test code = 0.03 10*3/uL 0.03-0.39 711-2) BASO x10^3 (test code 0.01-0.07 = 704-7) Lab Interpretation Abnormal (test code = 94358-9) [facility] 02:02:22 Test Item Value Reference Range Interpretation Comments MAGNESIUM (test code = 2515581613) 1.6 mg/dL 1.7-2.4 L Lab Interpretation (test code = Abnormal 90901-0) [facility]view[facility]-TERMINAL [id number] 00:49:15 Test Item Value Reference Range Interpretation Comments NT-proBNP (test code = 444 pg/mL <=450 3863215725) WINDY (test code = WINDY) Biotin has been reported to cause a negative bias, interpret results relative to patient's use of biotin. Lab Interpretation (test Normal code = 90299-6) [facility] [id number] 00:41:33 Test Item Value Reference Range Interpretation Comments TROPONIN I (test code = 0.006 ng/mL <=0.034 6556711686) WINDY (test code = WINDY) Reference (Normal) [...] biotin. Lab Interpretation Normal (test code = 63015-4) [facility]. METABOLIC PANEL (06423)2022-10-25 00:41:13 Test Item Value Reference Range Interpretation Comments NA (test code = 122 mmol/L 135-145 L 4415065745) K (test code = 4.1 mmol/L 3.5-5.0 6809209583) CL (test code = 88 mmol/L 98-108 L 7080497922) CO2 TOTAL (test code = 23 mmol/L 23-31 3374841747) AGAP (test code = 11 2-16 2383656307) BUN (test code = 25 mg/dL 7-23 H 3891785867) GLUCOSE (test code = 206 mg/dL 70-110 H 1754325855) CREATININE (test code = 0.77 mg/dL 0.50-1.04 3890673854) TOTAL BILI (test code = 0.5 mg/dL 0.1-1.3 3215320663) CALCIUM (test code = 9.0 mg/dL 8.6-10.6 1190588432) T PROTEIN (test code = 6.8 g/dL 6.3-8.2 6999882710) ALBUMIN (test code = 4.0 g/dL 3.5-5.0 1167424966) ALK PHOS (test code = 87 U/L 34-122 4512010128) ALTv (test code = 16 U/L 5-35 1742-6) AST(SGOT) (test code = 20 U/L 13-40 6041120393) eGFR (test code = 71.2 mL/min/1.73m2 3417792509) WINDY (test code = WINDY) Association of [...] tests). Lab Interpretation Abnormal (test code = 28308-6) [facility] 00:40:33 Test Item Value Reference Range Interpretation Comments LIPASE (test code = 9419647517) 39 U/L 0-220 Lab Interpretation (test code = Normal 09435-8) [facility]PROTHROM[facility] / [id number] 00:26:52 Test Item Value Reference Range Interpretation Comments PROTIME PATIENT (test 13.1 See_Comment [Auto mated message] code = 5964-2) The system Dine in ich generated this result transmitted ref erence range: 12.0 - 1 4.7 Seconds. The re ference range was not u sed to interpret this result as normal/abnor mal. INR (test code = 6301-6) 1.0 Nor mal INR <1.1; Warfarin Therap eutic range 2.0 to 3. 0 or 2.5 to 3.5, dep ending upon the indica tions. Lab Interpretation (test Normal code = 38382-2) [facility] WITH [id number] 00:19:53 Test Item Value Reference Range Interpretation Comments WBC (test code = 12.65 See_Comment H [Automated 4190-2) message] The sy stem which generated this result transmitted reference range : 4.30 - 11.10 10*3/?L. The reference range was not used to interpret this result as normal/abnormal . RBC (test code = 3.77 See_Comment L [Automated 319-8) message] The sy stem which generated this [...] RDW-SD (test code = 39.7 fL 39.0-49.9 25758-6) RDW-CV (test code = 13.3 % 12.0-15.5 788-0) PLT (test code = 379 See_Comment H [Automated 777-3) message] The sy stem which generated this result transmitted reference range : 166 - 358 10*3/ ?L. The reference r fernando was not used to interpret this result as normal/abnormal . MPV (test code = 9.2 fL 9.5-12.9 L 92525-8) NRBC/100 WBC (test 0.0 See_Comment [Automat ed code = 1451990474) message] The system which generated this result transmitted reference range : 0.0 - 10.0 /100 WBCs. The refer ence range was not u sed to interpret th is result as normal/abnormal . NRBC x10^3 (test code See_Comment [Auto mated = 0747527572) message] The s ystem which generated this result transmitted reference range : 10*3/?L. The reference range was not used to interpret this result as normal/abnormal . GRAN MAT (NEUT) % 70.3 % (test code = 770-8) IMM GRAN % (test code 0.80 % = 8450056296) LYMPH % (test code = 18.7 % 736-9) MONO % (test code = 9.8 % 5905-5) EOS % (test code = 0.2 % 713-8) BASO % (test code = 0.2 % 706-2) GRAN MAT x10^3(ANC) 8.90 10*3/uL 1.88-7.09 H (test code = 2804318408) IMM GRAN x10^3 (test 0.10 10*3/uL 0.00-0.06 H code = 9845454453) LYMPH x10^3 (test code 2.36 10*3/uL 1.32-3.29 = 731-0) MONO x10^3 (test code 1.24 10*3/uL 0.33-0.92 H = 742-7) EOS x10^3 (test code = 0.03 10*3/uL 0.03-0.39 711-2) BASO x10^3 (test code 0.01-0.07 = 704-7) Lab Interpretation Abnormal (test code = 51192-4) [facility] GLUCOSE (AUTOMATED)2022-10-08 15:06:32 Test Item Value Reference Range Interpretation Comments POCT GLU (test code = 8780146589) 162 mg/dL 70-110 H Lab Interpretation (test code = Abnormal 82612-5) [facility] GLUCOSE (AUTOMATED)2022-10-08 15:06:32 Test Item Value Reference Range Interpretation Comments POCT GLU (test code = 5928564397) 162 mg/dL 70-110 H Lab Interpretation (test code = Abnormal 69883-3) [facility] GLUCOSE (AUTOMATED)2022-10-08 03:55:19 Test Item Value Reference Range Interpretation Comments POCT GLU (test code = 7088460405) 279 mg/dL 70-110 H Lab Interpretation (test code = Abnormal 62222-3) [facility] GLUCOSE (AUTOMATED)2022-10-08 03:55:19 Test Item Value Reference Range Interpretation Comments POCT GLU (test code = 4245558514) 279 mg/dL 70-110 H Lab Interpretation (test code = Abnormal 37240-1) [facility] GLUCOSE (AUTOMATED)2022-10-08 03:11:05 Test Item Value Reference Range Interpretation Comments POCT GLU (test code = 1438139342) 322 mg/dL 70-110 H Lab Interpretation (test code = Abnormal 39933-9) [facility] GLUCOSE (AUTOMATED)2022-10-08 03:11:05 Test Item Value Reference Range Interpretation Comments POCT GLU (test code = 9239676555) 322 mg/dL 70-110 H Lab Interpretation (test code = Abnormal 33841-7) [facility] / [id number] 17:14:10 Test Item Value Reference Range Interpretation [...] tions. Lab Interpretation (test Normal code = 80008-2) [facility]CB WITH [id number] 17:07:07 Test Item Value Reference Range Interpretation Comments WBC (test code = See_Comment [Automated 6690-2) message] The sy stem which generated this result transmitted reference range : 4.30 - 11.10 10*3/?L. The reference range was not used to interpret this result as normal/abnormal . RBC (test code = See_Comment [Automated 709-8) message] The sy stem which generated this [...] RDW-SD (test code = 47.4 fL 39.0-49.9 52976-9) RDW-CV (test code = 15.6 % 12.0-15.5 H 788-0) PLT (test code = See_Comment [Automated 947-3) message] The sy stem which generated this result transmitted reference range : 166 - 358 10*3/ ?L. The reference r fernando was not used to interpret this result as normal/abnormal . MPV (test code = 9.8 fL 9.5-12.9 20518-4) NRBC/100 WBC (test See_Comment [Automat ed code = 3867205277) message] The system which generated this result transmitted reference range : 0.0 - 10.0 /100 WBCs. The refer ence range was not u sed to interpret th is result as normal/abnormal . NRBC x10^3 (test code See_Comment [Auto mated = 8606945250) message] The s ystem which generated this result transmitted reference range : 10*3/?L. The reference range was not used to interpret this result as normal/abnormal . GRAN MAT (NEUT) % 54.5 % (test code = 770-8) IMM GRAN % (test code 0.40 % = 0787594668) LYMPH % (test code = 36.8 % 736-9) MONO % (test code = 7.0 % 5905-5) EOS % (test code = 1.1 % 713-8) BASO % (test code = 0.2 % 706-2) GRAN MAT x10^3(ANC) 2.96 10*3/uL 1.88-7.09 (test code = 5838794558) IMM GRAN x10^3 (test 0.00-0.06 code = 4701760515) LYMPH x10^3 (test code 2.00 10*3/uL 1.32-3.29 = 731-0) MONO x10^3 (test code 0.38 10*3/uL 0.33-0.92 = 742-7) EOS x10^3 (test code = 0.06 10*3/uL 0.03-0.39 711-2) BASO x10^3 (test code 0.01-0.07 = 704-7) Lab Interpretation Abnormal (test code = 96258-2) [facility]METANEPHRINES, [id number] 20:47:27 Test Item Value Reference Range Interpretation Comments METANEPH (test <0.10 0.00-0.49 code = 63553-9) NORMETNEPH (test 0.83 nmol/L 0.00-0.89 code = 53918-7) METAPF INT (test See Note INTERPRETIV E code = 37429-8) INFORMATION: Metanephrines, Plasma (Free) This nacho t [...] its perform ance characteristics determined by [facility]. I t has not been cleared or approved by the [place] Food and Drug Administration. This test was perfor med in a CLIA certified laboratory and is intended for cl inical purposes.Perfor med By: LUCINDA Seoi es[address] [place] [address] [id number] aboratory Director: Juan Espinosa MD, PhD [facility] GLUCOSE (AUTOMATED)2022-06-25 17:12:53 Test Item Value Reference Range Interpretation Comments POCT GLU (test code = 0106895220) 200 mg/dL 70-110 H Lab Interpretation (test code = Abnormal 83294-0) [facility] GLUCOSE (AUTOMATED)2022-06-25 17:12:53 Test Item Value Reference Range Interpretation Comments POCT GLU (test code = 9847282983) 200 mg/dL 70-110 H Lab Interpretation (test code = Abnormal 53841-8) [facility] GLUCOSE (AUTOMATED)2022-06-25 14:20:12 Test Item Value Reference Range Interpretation Comments POCT GLU (test code = 3320363027) 171 mg/dL 70-110 H Lab Interpretation (test code = Abnormal 25571-5) [facility] GLUCOSE (AUTOMATED)2022-06-25 14:20:12 Test Item Value Reference Range Interpretation Comments POCT GLU (test code = 5306807329) 171 mg/dL 70-110 H Lab Interpretation (test code = Abnormal 56965-4) [facility] GLUCOSE (AUTOMATED)2022-06-25 01:30:55 Test Item Value Reference Range Interpretation Comments POCT GLU (test code = 6214738831) 207 mg/dL 70-110 H Lab Interpretation (test code = Abnormal 33905-0) [facility] GLUCOSE (AUTOMATED)2022-06-25 01:30:55 Test Item Value Reference Range Interpretation Comments POCT GLU (test code = 5765076961) 207 mg/dL 70-110 H Lab Interpretation (test code = Abnormal 62914-9) [facility] GLUCOSE (AUTOMATED)2022-06-24 22:26:40 Test Item Value Reference Range Interpretation Comments POCT GLU (test code = 1859272202) 195 mg/dL 70-110 H Lab Interpretation (test code = Abnormal 17508-1) [facility] GLUCOSE (AUTOMATED)2022-06-24 22:26:40 Test Item Value Reference Range Interpretation Comments POCT GLU (test code = 1210342624) 195 mg/dL 70-110 H Lab Interpretation (test code = Abnormal 21946-7) [facility] GLUCOSE (AUTOMATED)2022-06-24 18:07:03 Test Item Value Reference Range Interpretation Comments POCT GLU (test code = 3741193878) 376 mg/dL 70-110 H Lab Interpretation (test code = Abnormal 58119-3) [facility] GLUCOSE (AUTOMATED)2022-06-24 18:07:03 Test Item Value Reference Range Interpretation Comments POCT GLU (test code = 4715601196) 376 mg/dL 70-110 H Lab Interpretation (test code = Abnormal 96802-0) [facility]2022-[facility]-14 17:45:35 Test Item Value Reference Range Interpretation Comments MAGNESIUM (test code = 0440588502) 1.9 mg/dL 1.7-2.4 Lab Interpretation (test code = Normal 52843-4) [facility] (NA, K, CL, CO2, GLUCOSE, BUN, CREATININE, CA)2022-06-24 17:45:35 Test Item Value Reference Range Interpretation Comments NA (test code = 137 mmol/L 135-145 3711969250) K (test code = 3.3 mmol/L 3.5-5 L 1165063028) CL (test code = 101 mmol/L 98-108 4379492288) CO2 TOTAL (test code = 25 mmol/L 23-31 2696416024) AGAP (test code = 2-16 8077549348) BUN (test code = 17 mg/dL 7-23 4123255496) GLUCOSE (test code = 264 mg/dL 70-110 H 2565182350) CREATININE (test code = 0.94 mg/dL 0.5-1.04 1907239240) CALCIUM (test code = 9.1 mg/dL 8.6-10.6 9999723203) eGFR (test code = mL/min/1.73m2 0152585471) WINDY (test code = WINDY) Association of [...] tests). Lab Interpretation Abnormal (test code = 85068-5) [facility]2022-10-14 17:45:35 Test Item Value Reference Range Interpretation Comments MAGNESIUM (test code = 2110056334) 1.9 mg/dL 1.7-2.4 Lab Interpretation (test code = Normal 69760-1) [facility] (NA, K, CL, CO2, GLUCOSE, BUN, CREATININE, CA)2022-06-24 17:45:35 Test Item Value Reference Range Interpretation Comments NA (test code = 137 mmol/L 135-145 9512220742) K (test code = 3.3 mmol/L 3.5-5 L 8884272907) CL (test code = 101 mmol/L 98-108 9374723868) CO2 TOTAL (test code = 25 mmol/L 23-31 2402456920) AGAP (test code = 2-16 6479361069) BUN (test code = 17 mg/dL 7-23 7814410770) GLUCOSE (test code = 264 mg/dL 70-110 H 2599013506) CREATININE (test code = 0.94 mg/dL 0.5-1.04 1370562127) CALCIUM (test code = 9.1 mg/dL 8.6-10.6 9453942330) eGFR (test code = mL/min/1.73m2 8585221664) WINDY (test code = WINDY) Association of [...] tests). Lab Interpretation Abnormal (test code = 53806-9) [facility] WITHOUT [id number] 17:37:52 Test Item Value Reference Range Interpretation Comments WBC (test code = 6690-2) See_Comment [A utomated message] The system [employer] generated this result transmit timur reference range : 4.30 - 11.10 10*3/?L. The reference range was not used to interpret this result as normal/abnormal . RBC (test code = 789-8) See_Comment [Au tomated message] The system [employer] generated this result transmit timur reference range [...] 777-3) See_Comment [Au tomated message] The system [employer] generated this result transmit timur reference range : 166 - 358 10*3/?L. The reference range was not used to interpret this result as normal/abnormal . MPV (test code = 9.0 fL 9.5-12.9 L 54428-4) RDW-CV (test code = 16.6 % 12-15.5 H 788-0) RDW-SD (test code = 44.0 fL 39-49.9 19511-7) NRBC x10^3 (test code = See_Comment [Au tomated message] 4608240490) The system [employer] generated this result transmit timur reference range : 10*3/?L. The reference range was not used to interpret this result as normal/abnormal . NRBC/100 WBC (test code See_Comment [Au tomated message] = 4404772738) The system [facility] generated this result transmit timur reference range : 0.0 - 10.0 /100 WBC s. The reference r fernando was not used to interpret this result as normal/abnormal . IPF % (test code = 7953530365) Lab Interpretation (test Abnormal code = 32359-1) [facility] WITHOUT [id number] 17:37:52 Test Item Value Reference Range Interpretation Comments WBC (test code = 6690-2) See_Comment [A utomated message] The system [employer] generated this result transmit timur reference range : 4.30 - 11.10 10*3/?L. The reference range was not used to interpret this result as normal/abnormal . RBC (test code = 789-8) See_Comment [Au tomated message] The system [employer] generated this result transmit timur reference range [...] 777-3) See_Comment [Au tomated message] The system [employer] generated this result transmit timur reference range : 166 - 358 10*3/?L. The reference range was not used to interpret this result as normal/abnormal . MPV (test code = 9.0 fL 9.5-12.9 L 39796-1) RDW-CV (test code = 16.6 % 12-15.5 H 788-0) RDW-SD (test code = 44.0 fL 39-49.9 04652-6) NRBC x10^3 (test code = See_Comment [Au tomated message] 9888565383) The system [employer] generated this result transmit timur reference range : 10*3/?L. The reference range was not used to interpret this result as normal/abnormal . NRBC/100 WBC (test code See_Comment [Au tomated message] = 0285914536) The system [employer] generated this result transmit timur reference range : 0.0 - 10.0 /100 WBC s. The reference r fernando was not used to interpret this result as normal/abnormal . IPF % (test code = 5871107396) Lab Interpretation (test Abnormal code = 90024-9) [facility] GLUCOSE (AUTOMATED)2022-06-24 13:05:03 Test Item Value Reference Range Interpretation Comments POCT GLU (test code = 1182178099) 175 mg/dL 70-110 H Lab Interpretation (test code = Abnormal 01586-2) [facility] GLUCOSE (AUTOMATED)2022-06-24 13:05:03 Test Item Value Reference Range Interpretation Comments POCT GLU (test code = 4654690715) 175 mg/dL 70-110 H Lab Interpretation (test code = Abnormal 47001-7) [facility] GLUCOSE (AUTOMATED)2022-06-24 03:59:23 Test Item Value Reference Range Interpretation Comments POCT GLU (test code = 8920251381) 200 mg/dL 70-110 H Lab Interpretation (test code = Abnormal 98093-5) [facility] GLUCOSE (AUTOMATED)2022-06-24 03:59:23 Test Item Value Reference Range Interpretation Comments POCT GLU (test code = 1804110206) 200 mg/dL 70-110 H Lab Interpretation (test code = Abnormal 03558-2) [facility] GLUCOSE (AUTOMATED)2022-06-23 22:39:44 Test Item Value Reference Range Interpretation Comments POCT GLU (test code = 0639129931) 210 mg/dL 70-110 H Lab Interpretation (test code = Abnormal 07976-4) [facility]23 22:39:44 Test Item Value Reference Range Interpretation Comments POCT GLU (test code = 5425344476) 210 mg/dL 70-110 H Lab Interpretation (test code = Abnormal 05957-5) [facility] GLUCOSE (AUTOMATED)2022-06-23 17:10:04 Test Item Value Reference Range Interpretation Comments POCT GLU (test code = 4949938399) 189 mg/dL 70-110 H Lab Interpretation (test code = Abnormal 82061-8) [facility] GLUCOSE (AUTOMATED)2022-06-23 17:10:04 Test Item Value Reference Range Interpretation Comments POCT GLU (test code = 4611793095) 189 mg/dL 70-110 H Lab Interpretation (test code = Abnormal 91094-4) [facility] GLUCOSE (AUTOMATED)2022-06-23 12:33:02 Test Item Value Reference Range Interpretation Comments POCT GLU (test code = 3418987028) 193 mg/dL 70-110 H Lab Interpretation (test code = Abnormal 03413-8) [facility] GLUCOSE (AUTOMATED)2022-06-23 12:33:02 Test Item Value Reference Range Interpretation Comments POCT GLU (test code = 8021498392) 193 mg/dL 70-110 H Lab Interpretation (test code = Abnormal 79653-4) [facility] GLUCOSE (AUTOMATED)2022-06-23 02:42:00 Test Item Value Reference Range Interpretation Comments POCT GLU (test code = 1317294973) 166 mg/dL 70-110 H Lab Interpretation (test code = Abnormal 66148-5) [facility] GLUCOSE (AUTOMATED)2022-06-23 02:42:00 Test Item Value Reference Range Interpretation Comments POCT GLU (test code = 3030968686) 166 mg/dL 70-110 H Lab Interpretation (test code = Abnormal 65744-1) [facility]osph[facility] [id number] 23:14:43 Test Item Value Reference Range Interpretation Comments PHOSPHORUS (test code = 3.1 mg/dL 2.5-5 Slig ht hemolysis 8528120552) Lab Interpretation (test Normal code = 82360-4) [facility] [id number] 23:14:43 Test Item Value Reference Range Interpretation Comments PHOSPHORUS (test code = 3.1 mg/dL 2.5-5 Slig ht hemolysis 5794594083) Lab Interpretation (test Normal code = 84258-5) [facility] GLUCOSE (AUTOMATED)2022-06-22 22:01:14 Test Item Value Reference Range Interpretation Comments POCT GLU (test code = 9332083509) 216 mg/dL 70-110 H Lab Interpretation (test code = Abnormal 68689-3) [facility] GLUCOSE (AUTOMATED)2022-06-22 22:01:14 Test Item Value Reference Range Interpretation Comments POCT GLU (test code = 0154945282) 216 mg/dL 70-110 H Lab Interpretation (test code = Abnormal 85639-2) [facility] GLUCOSE (AUTOMATED)2022-06-22 16:56:03 Test Item Value Reference Range Interpretation Comments POCT GLU (test code = 6067959529) 170 mg/dL 70-110 H Lab Interpretation (test code = Abnormal 16158-5) [facility] GLUCOSE (AUTOMATED)2022-06-22 16:56:03 Test Item Value Reference Range Interpretation Comments POCT GLU (test code = 1792822413) 170 mg/dL 70-110 H Lab Interpretation (test code = Abnormal 44179-5) [facility] GLUCOSE (AUTOMATED)2022-06-22 13:15:17 Test Item Value Reference Range Interpretation Comments POCT GLU (test code = 5212161293) 186 mg/dL 70-110 H Lab Interpretation (test code = Abnormal 55517-1) [facility] GLUCOSE (AUTOMATED)2022-06-22 13:15:17 Test Item Value Reference Range Interpretation Comments POCT GLU (test code = 1219359779) 186 mg/dL 70-110 H Lab Interpretation (test code = Abnormal 62265-3) [facility] GLUCOSE (AUTOMATED)2022-06-22 00:55:28 Test Item Value Reference Range Interpretation Comments POCT GLU (test code = 3490320892) 201 mg/dL 70-110 H Lab Interpretation (test code = Abnormal 74573-7) [facility] 00:55:28 Test Item Value Reference Range Interpretation Comments POCT GLU (test code = 6452163543) 201 mg/dL 70-110 H Lab Interpretation (test code = Abnormal 27589-8) [facility]2022-06-21 22:48:56 Test Item Value Reference Range Interpretation Comments Height (test code = in 2967902969) Weight (test code = lbs 4032521149) Systolic BP (test code = mmHg 9348988224) Diastolic BP (test code mmHg = 0275126915) Heart Rate (test code = bpm 9869308377) LVOT stroke volume (test 79.70 cm3 code = 7596069254) EF(Teich) (test code = 56.30 % 7351143639) LVIDD (test code = 4.60 cm 5449298778) LVIDS (test code = 3.30 cm 0521059023) Left Ventricular End 43.5 mL Systolic Volume by Teichholz Method (test code = 7636435) Left Ventricular End 99.6 mL Diastolic Volume by Teichholz Method (test code = 6091183) IVS (test code = 1.19 cm 2848078995) LVPWD (test code = 1.08 cm 6214211012) LVOT diameter (test code 2.05 cm = 8575385093) LVOT area (test code = 3.30 cm2 6926055918) FS (test code = 29 % 1983898059) MV Peak E Tian (test code 84.6 cm/s = 3816864349) MV Peak A Tian (test code 110.3 cm/s = 9455782766) E/A ratio (test code = ratio 2193025227) E wave decelartion time 0.25 s (test code = 5237226709) MV E/e' septal (test 4.0 cm/s code = 8471935642) LA Volume Index (BP) 36.7 mL/m2 (test code = 5406125725) LA volume (BP) (test 65.4 mL code = 7521765630) LVOT peak tian (test code 100.1 cm/s = 5301699462) LVOT mn grad (test code mmHg = 3280107956) BSA (test code = 1.78 m2 6771310521) LA size (test code = 3.4 cm 7818263557) LAV(MOD-sp2) (test code 61.30 mL = 5708417417) LAV(MOD-sp4) (test code 58.90 mL = 2438682009) Tapse (test code = 2.48 cm 8760878701) AV LVOT peak gradient mmHg (test code = 8596226801) LVOT peak VTI (test code 24.2 cm = 9018789240) LV V1 mean (test code = 64.80 cm/s 1001495010) MV Prop V (test code = 31.70 cm/s 5262025460) Ao root diam (test code 3.40 cm = 5963071814) Aortic root (test code = 3.4 cm 5051652170) Ao root annulus (test 3.4 cm code = 7400853103) PW (test code = 1.08 cm 0.6-1.2 9662758095) EF - 2D (test code = 56.30 % 97550621) Interventricular Septum 1.19 cm Diastolic Thickness by 2D (test code = 2341877) Left Ventricular Cardiac 4.8 L/min Output (test code = 3221992) Aortic HR (test code = BPM 5847077998) Aortic valve mean 86.9 cm/s velocity (test code = 3156659025) Ao peak tian (test code = 153.7 cm/s 2501916350) Ao VTI (test code = 33.7 cm 7147375347) AV area by cont VTI 2.4 cm2 (test code = 2723270126) AV area peak tian (test 2.2 cm2 code = 2448568650) Ao max PG (test code = 9.40 mm[Hg] 2486996894) AV peak gradient (test mmHg code = 9267083314) AV valve area (test code 2.37 cm2 = 7361522034) AV mean gradient (test mmHg code = 5431257576) IVC Diam Exp(MM) (test 1.87 cm code = 9557438304) IVC Diam Ins(MM) (test 0.78 cm code = 5724560722) Radiology Study observation (narrative) (test code = 43433-4) WINDY (test code = WINDY) ?Left?Ventricle: Left [...] enhancing agent used. Patient exhibited sinus bradycardia. [facility] 22:48:56 Test Item Value Reference Range Interpretation Comments Height (test code = in 5771442280) Weight (test code = lbs 3872698800) Systolic BP (test code = mmHg 7260806201) Diastolic BP (test code mmHg = 4440920922) Heart Rate (test code = bpm 3341624717) LVOT stroke volume (test 79.70 cm3 code = 3990762284) EF(Teich) (test code = 56.30 % 2810440768) LVIDD (test code = 4.60 cm 4794664759) LVIDS (test code = 3.30 cm 4217208716) Left Ventricular End 43.5 mL Systolic Volume by Teichholz Method (test code = 0745454) Left Ventricular End 99.6 mL Diastolic Volume by Teichholz Method (test code = 1479388) IVS (test code = 1.19 cm 3415526373) LVPWD (test code = 1.08 cm 1688909714) LVOT diameter (test code 2.05 cm = 0705602538) LVOT area (test code = 3.30 cm2 8108006910) FS (test code = 29 % 7963833004) MV Peak E Tian (test code 84.6 cm/s = 7779521467) MV Peak A Tian (test code 110.3 cm/s = 0758053503) E/A ratio (test code = ratio 4440054774) E wave decelartion time 0.25 s (test code = 4510255285) MV E/e' septal (test 4.0 cm/s code = 6914483772) LA Volume Index (BP) 36.7 mL/m2 (test code = 0996606194) LA volume (BP) (test 65.4 mL code = 2315766239) LVOT peak tian (test code 100.1 cm/s = 1185154661) LVOT mn grad (test code mmHg = 3604797768) BSA (test code = 1.78 m2 5564799632) LA size (test code = 3.4 cm 0304151438) LAV(MOD-sp2) (test code 61.30 mL = 5345245345) LAV(MOD-sp4) (test code 58.90 mL = 0302527688) Tapse (test code = 2.48 cm 7043273512) AV LVOT peak gradient mmHg (test code = 8454384340) LVOT peak VTI (test code 24.2 cm = 0662087776) LV V1 mean (test code = 64.80 cm/s 4870030653) MV Prop V (test code = 31.70 cm/s 0445067173) Ao root diam (test code 3.40 cm = 4216133704) Aortic root (test code = 3.4 cm 1147870339) Ao root annulus (test 3.4 cm code = 8422051535) PW (test code = 1.08 cm 0.6-1.9 2262302876) EF - 2D (test code = 56.30 % 86890336) Interventricular Septum 1.19 cm Diastolic Thickness by 2D (test code = 0751468) Left Ventricular Cardiac 4.8 L/min Output (test code = 2055461) Aortic HR (test code = BPM 1314807224) Aortic valve mean 86.9 cm/s velocity (test code = 2008959798) Ao peak tian (test code = 153.7 cm/s 4520073561) Ao VTI (test code = 33.7 cm 0582623748) AV area by cont VTI 2.4 cm2 (test code = 4264233205) AV area peak tian (test 2.2 cm2 code = 0313157659) Ao max PG (test code = 9.40 mm[Hg] 6930898487) AV peak gradient (test mmHg code = 4444963315) AV valve area (test code 2.37 cm2 = 9469850540) AV mean gradient (test mmHg code = 5012709549) IVC Diam Exp(MM) (test 1.87 cm code = 0282008233) IVC Diam Ins(MM) (test 0.78 cm code = 3343383386) Radiology Study observation (narrative) (test code = 57397-7) WINDY (test code = WINDY) ?Left?Ventricle: Left [...] enhancing agent used. Patient exhibited sinus bradycardia. [facility] GLUCOSE (AUTOMATED)2022-06-21 21:50:29 Test Item Value Reference Range Interpretation Comments POCT GLU (test code = 8709911101) 181 mg/dL 70-110 H Lab Interpretation (test code = Abnormal 11936-2) [facility] GLUCOSE (AUTOMATED)2022-06-21 21:50:29 Test Item Value Reference Range Interpretation Comments POCT GLU (test code = 3316690568) 181 mg/dL 70-110 H Lab Interpretation (test code = Abnormal 99953-4) [facility] GLUCOSE (AUTOMATED)2022-06-21 20:55:06 Test Item Value Reference Range Interpretation Comments POCT GLU (test code = 7727768508) 159 mg/dL 70-110 H Lab Interpretation (test code = Abnormal 64038-1) [facility] GLUCOSE (AUTOMATED)2022-06-21 20:55:06 Test Item Value Reference Range Interpretation Comments POCT GLU (test code = 6323965270) 159 mg/dL 70-110 H Lab Interpretation (test code = Abnormal 56058-9) [facility] [id number] 11:32:00 Test Item Value Reference Range Interpretation Comments POC-GLUCOSE METER 235 mg/dL 70-110 H : TESTED A T [facility] [address] (ImpactMediaAKER) (test code = [place], 1538) [address]: Attendance Clerk/Techni chika ID = [id number] for QUEEN LASSITER POCT-GLUCOSE [id number] 07:37:00 Test Item Value Reference Range Interpretation Comments POC-GLUCOSE METER 190 mg/dL 70-110 H : TESTED A T [facility] 6720 (BEAKER) (test code = [place], 1538) [address]: Attendance Clerk/Techni chika ID = [id number] for QUEEN LASSITER CBC W/PLT COUNT & AUTO [id number] 06:10:00 Test Item Value Reference Range Interpretation [...] PERCENT (BEAKER) (test code = 2801) POCT-GLUCOSE [id number] 22:16:00 Test Item Value Reference Range Interpretation Comments POC-GLUCOSE METER 275 mg/dL 70-110 H : TESTED A T [facility] 6720 (BEAKER) (test code = [facility], 153) 588[address]: Attendance Clerk/Techni chika ID = [id number] for RODNEY HENAOAIRIS POCT-GLUCOSE [id number] 16:44:00 Test Item Value Reference Range Interpretation Comments POC-GLUCOSE METER 200 mg/dL 70-110 H : TESTED A T [facility] 6720 (BEAKER) (test code = [facility], 153) 79955: Attendance Clerk/Techni chika ID = [id number] for QUEEN LASSITER POCT-GLUCOSE [id number] 12:11:00 Test Item Value Reference Range Interpretation Comments POC-GLUCOSE METER 180 mg/dL 70-110 H : TESTED A T [facility] 6720 (BEAKER) (test code = [facility], 153) 10214: Attendance Clerk/Techni chika ID = [id number] for NW AJIAKU, SHAYY POCT-GLUCOSE [id number] 08:17:00 Test Item Value Reference Range Interpretation Comments POC-GLUCOSE METER 158 mg/dL 70-110 H : TESTED A T [facility] 6720 (BEAKER) (test code = [facility], 153) 63729: Attendance Clerk/Techni chika ID = [id number] for NW AJIAKU, SHAYY CBC W/PLT COUNT & AUTO [id number] 04:14:00 Test Item Value Reference Range Interpretation [...] PERCENT (BEAKER) (test code = 2801) POCT-GLUCOSE [id number] 16:12:00 Test Item Value Reference Range Interpretation Comments POC-GLUCOSE METER 233 mg/dL 70-110 H : TESTED A T [facility] 6720 (BEAKER) (test code = [facility], 1538) 64739: Attendance Clerk/Techni chika ID = [id number] for SHAYY ALBRIGHT POCT-GLUCOSE [id number] 12:02:00 Test Item Value Reference Range Interpretation Comments POC-GLUCOSE METER 190 mg/dL 70-110 H : TESTED A T [facility] 6720 (BEAKER) (test code = [facility], 1538) 66507: Attendance Clerk/Techni chika ID = [id number] for SHAYY ALBRIGHT STOOL CULTURE + SHIGA [id number] 09:19:00 Test Item Value Reference Range Interpretation Comments CULTURE (BEAKER) No Salmonella, Shigella (test code = 1095) or Campylobacter isolated POCT-GLUCOSE [id number] 07:46:00 Test Item Value Reference Range Interpretation Comments POC-GLUCOSE METER 174 mg/dL 70-110 H : TESTED A T [facility] 6720 (BEAKER) (test code = [facility], 1538) 41240: Attendance Clerk/Techni chika ID = [id number] for SHAYY ALBRIGHT CBC W/PLT COUNT & AUTO [id number] 06:53:00 Test Item Value Reference Range Interpretation [...] 0-1 PERCENT (BEAKER) (test code = 2801) [id number] 06:20:00 Test Item Value Reference Range Interpretation Comments MAGNESIUM (BEAKER) 1.7 mg/dL 1.6-2.6 Specimen slightly (test code = 627) hemolyzed Attendance Clerk ID - LATA WBASIC METABOLIC [id number] 06:20:00 Test Item Value Reference Range Interpretation [...] S NOT APPLICABLE FOR DIALYSIS PATIEN TS. Attendance Clerk ID Suman GUIDO WHEPATIC FUNCTION [id number] 06:20:00 Test Item Value Reference Range Interpretation [...] Specimen slightly (test code = 347) hemolyzed Attendance Clerk ID Suman GUIDO WPOCT-GLUCOSE [id number] 21:46:00 Test Item Value Reference Range Interpretation Comments POC-GLUCOSE METER 181 mg/dL 70-110 H : TESTED A T [facility] 6720 (BEAKER) (test code = [place], 1538) 0[address]: Attendance Clerk/Techni chika ID = [id number] for KE BE, SAUDATU CT, BRAIN, WITHOUT [id number] 18:11:00FINAL REPORT CT, BRAIN, WITHOUT CONTRAST INDICATION: [...] Annmarie Burch Verified Date/Time: 03/26/2020 18:11:57 POCT-GLUCOSE [id number] 17:31:00 Test Item Value Reference Range Interpretation Comments POC-GLUCOSE METER 209 mg/dL 70-110 H : Notified RN/MD: (CALI) (test code = TESTED AT [place] [id number] 1538) [facility], [address]: Attendance Clerk/Techni chika ID = [id number] for MEERA LEMOS SHIGA TOXIN [id number] 15:19:00 Test Item Value Reference Range Interpretation Comments SHIGA TOXIN 1 (CALI) (test Not detected Not detected code = 2177) SHIGA TOXIN 2 (CALI) (test Not detected Not detected code = 2179) POCT-GLUCOSE [id number] 11:53:00 Test Item Value Reference Range Interpretation Comments POC-GLUCOSE METER 159 mg/dL 70-110 H : TESTED A T [facility] 6720 (CALI) (test code = [place] [facility], 1538) 644[address]: Attendance Clerk/Techni chika ID = [id number] for SANDRA HOLLIS STOOL PATH [id number] 11:36:00 Test Item Value Reference Range Interpretation Comments PATHOGEN EXAM CHARGED (BEAKER) (test Done code = 2381) POCT-GLUCOSE [id number] 07:11:00 Test Item Value Reference Range Interpretation Comments POC-GLUCOSE METER 146 mg/dL 70-110 H : TESTED A T [facility] 6720 (BEAKER) (test code = [place], 1538) [address]: Attendance Clerk/Techni chika ID = [id number] for MILY GROVE [id number] 06:04:00 Test Item Value Reference Range Interpretation Comments MAGNESIUM (BEAKER) (test code = 1.9 mg/dL 1.6-2.6 627) Attendance Clerk ID - WAGNER LBASIC METABOLIC [id number] 06:04:00 Test Item Value Reference Range Interpretation [...] S NOT APPLICABLE FOR DIALYSIS PATIEN TS. Attendance Clerk ID - PIAYA LHEPATIC FUNCTION [id number] 06:04:00 Test Item Value Reference Range Interpretation [...] (test code = 15 U/L 6-55 347) Attendance Clerk ID - PIAYA LCBC W/PLT COUNT & AUTO [id number] 05:20:00 Test Item Value Reference Range Interpretation [...] PERCENT (BEAKER) (test code = 2801) POCT-GLUCOSE [id number] 21:12:00 Test Item Value Reference Range Interpretation Comments POC-GLUCOSE METER 154 mg/dL 70-110 H : TESTED A T [facility] 6720 (BEAKER) (test code = [facility], 1538) 95207: Attendance Clerk/Techni chika ID = [id number] for JEREMY GUPTA POCT-GLUCOSE [id number] 17:43:00 Test Item Value Reference Range Interpretation Comments POC-GLUCOSE METER 152 mg/dL 70-110 H : TESTED A T [facility] 6720 (BEAKER) (test code = [facility], 1538) 04474: Attendance Clerk/Techni chika ID = [id number] for [place] SARS-COV2/RT-PCR ([facility])2020-03-25 13:40:00 Test Item Value Reference Range Interpretation Comments SARS-COV2/RT-PCR (test code = Negative Not Detected, Negative [id number]) SARS-COV-2 PERFORMING LAB [facility] (test code = 6128118) Negative result for this test determines that [...] of the Act.Fact Sheet for Healthcare Prov iders:https://www.[employer]/sites/default/files/product/documents/Fact_Sheet_HC _Dbfrtmtsz_Zvba_FTII-LuG-1.pdfFact Sheet for Healthcare Patients:https://www.[employer]/sites/default/files/product/docume nts/Zmxn_Ridqu_Mbwpdolz_Qfsc_DIYR-FqG-8.pdfPerforming Laboratory:[facility], [place] [address]WBML-DJISUPS METER 2020-03-25 11:24:00 Test Item Value Reference Range Interpretation Comments POC-GLUCOSE METER 165 mg/dL 70-110 H : TESTED A T [facility] 6720 (UAB FIMA) (test code = DINA Ortega [facility], 1538) 94393: Attendance Clerk/Techni chika ID = [id number] for SANDRA HOLLIS TSH/FREE T4 IF [id number] 10:59:00 Test Item Value Reference Range Interpretation Comments THYROID STIMULATING HORMONE 0.622 uIU/mL 0.350-4.940 (UAB FIMA) (test code = 772) Attendance Clerk ID - PIAYA LHEMOGLOBIN [id number] 10:59:00 Test Item Value Reference Range Interpretation Comments HEMOGLOBIN A1C (BEAKER) (test code = 6.9 % 4.3-6.1 H 368) TROPONIN [id number] 10:50:00 Test Item Value Reference Range Interpretation [...] failure, acidosis, acute neurological disease, and persistent tachyarrhythmia.Attendance Clerk ID - PIAYA LBASIC METABOLIC [id number] 10:42:00 Test Item Value Reference Range Interpretation [...] S NOT APPLICABLE FOR DIALYSIS PATIEN TS. Attendance Clerk ID - PIAYA LHEPATIC FUNCTION [id number] 10:42:00 Test Item Value Reference Range Interpretation [...] (test code = 10 U/L 6-55 347) Attendance Clerk ID - WAGNER [id number] 10:41:00 Test Item Value Reference Range Interpretation Comments PHOSPHORUS (BEAKER) (test code = 3.2 mg/dL 2.3-4.7 604) Attendance Clerk ID - WAGNER [id number] 10:41:00 Test Item Value Reference Range Interpretation Comments MAGNESIUM (BEAKER) (test code = 2.0 mg/dL 1.6-2.6 627) Attendance Clerk ID - WAGNER LPOCT-GLUCOSE [id number] 09:10:00 Test Item Value Reference Range Interpretation Comments POC-GLUCOSE METER 116 mg/dL 70-110 H : TESTED A T [facility] 6720 (BEAKER) (test code = [place], 1538) 160[address]: Attendance Clerk/Techni chika ID = [id number] for LANCE TRACEYELA RAD, CHEST, 1 VIEW, NON [id number] 07:49:00Reason for exam:->chest painShould this be performed at the bedside?->YesFINAL REPORT CLINICAL HISTORY: chest pain TECHNIQUE: 1 view of the chest. COMPAR NIEVES: None IMPRESSION: There are linear bandlike opacities in the bilateral mid and lower lungs. There are no significant effusions. The cardiomediastinal silhouette is magnified by technique. Signed: Keturah Gillespie MDReport Verified Date/Time: 03/25/2020 07:49:59 Reading Location: [facility] Radiology Reading Room C. DIFFICILE GDH [id number] 06:54:00 Test Item Value Reference Range Interpretation Comments CDT TOXIN (test code Negative Negative = [id number]) CDT GDH ANTIGEN (test Negative Negative No ind ication of code = [id number]) Clostridi um difficile infection and n o colonization. Discontinue ent perez isolation and t herapy. Testing performed by Volt[employer] Rapid Cassette Assay. For GDH, published sensitivity of the assay is 98.7% compared to cytotoxicity testing. For Toxin AB, published sensitivity is 87.8% and specificity 99.4% compared to cytotoxicity testing.Verification of kit performance was done by the [facility] Microbiology Lab prior to clinical use.URINALYSIS WITH MICROSCOPIC IF [id number] 06:35:00 Test Item Value Reference Range Interpretation [...] = 463) SOURCE(BEAKER) (test code = 2795) Attendance Clerk ID - [auto]Attendance Clerk ID - techURINALYSIS [id number] 06:35:00 Test Item Value Reference Range Interpretation Comments RBC UA (BEAKER) (test code = 519) 3 /HPF WBC UA (BEAKER) (test code = 520) 11 /HPF BACTERIA (BEAKER) (test code = 517) Rare SQUAMOUS EPITHELIAL (BEAKER) (test 1 /HPF code = 516) Attendance Clerk ID - techPOCT-GLUCOSE [id number] 05:08:00 Test Item Value Reference Range Interpretation Comments POC-GLUCOSE METER 128 mg/dL 70-110 H : TESTED A T [facility] 6720 (BEAKER) (test code = [place], 1538) [address]: Attendance Clerk/Techni chika ID = [id number] for As Meena beckett CHEM [id number] 12:00:00 Test Item Value Reference Range Interpretation Comments eGFR (test code = eGFR) 86 [facility]2018-06-19 12:00:00 Test Item Value Reference Range Interpretation Comments AGAP (test code = AGAP) 9.5 10.0-20.0 [facility]2018-06-19 12:00:00 Test Item Value Reference Range Interpretation Comments CO2 (test code = CO2) 33 24-32 [facility]2018-06-19 12:00:00 Test Item Value Reference Range Interpretation Comments Calcium Lvl (test code = Calcium Lvl) 8.7 8.5-10.5 [facility]2018-06-19 12:00:00 Test Item Value Reference Range Interpretation Comments Glucose Lvl (test code = Glucose Lvl) 201 70-99 [facility]2018-06-19 12:00:00 Test Item Value Reference Range Interpretation Comments BUN (test code = BUN) 19 7-22 [facility]2018-06-19 12:00:00 Test Item Value Reference Range Interpretation Comments Creatinine Lvl (test code = Creatinine 0.61 0.50-1.40 Lvl) [facility]2018-06-19 12:00:00 Test Item Value Reference Range Interpretation Comments Sodium Lvl (test code = Sodium Lvl) 127 135-145 [facility]2018-06-19 12:00:00 Test Item Value Reference Range Interpretation Comments Chloride Lvl (test code = Chloride Lvl) 89 95-109 [facility]2018-06-19 12:00:00 Test Item Value Reference Range Interpretation Comments Potassium Lvl (test code = Potassium 4.5 3.5-5.1 Lvl) [facility] [id number] 08:31:00 Test Item Value Reference Range Interpretation Comments Lymphocytes (test code = Lymphocytes) 11.3 20.0-40.0 [facility] SystemKezkwuuBVOTYLPJFU1682-00-22 08:31:00 Test Item Value Reference Range Interpretation Comments Segs (test code = Segs) 81.3 45.0-75.0 [facility] SystemAperfjiOACKIVEZQW1985-46-18 08:31:00 Test Item Value Reference Range Interpretation Comments Basophils (test code = 0.3 See_Comment [Aut omated message] The Basophils) system which ge nerated this result tra nsmitted reference range : <=1.0. The reference r fernando was not used to int erpret this result as normal/abnormal . [facility] S[id number] 08:31:00 Test Item Value Reference Range Interpretation Comments Eosinophils (test code = 2.2 See_Comment [A utomated message] The Eosinophils) system which ge nerated this result tra nsmitted reference range : <=4.0. The reference r fernando was not used to int erpret this result as normal/abnormal . [facility] SystemDadlpahLRNKLIAUVX0470-83-17 08:31:00 Test Item Value Reference Range Interpretation Comments Monocytes (test code = Monocytes) 4.9 2.0-12.0 [facility] SystemZeptejsADMOACGKMM9963-25-22 08:31:00 Test Item Value Reference Range Interpretation Comments Lymphocytes # (test code = Lymphocytes 1.0 1.0-5.5 #) [facility] SystemVpswxgcCWCIRFTZHA7846-49-06 08:31:00 Test Item Value Reference Range Interpretation Comments Segs-Bands # (test code = Segs-Bands #) 7.2 1.5-8.1 [facility] SystemEoalwwmDVERGMGEBC2253-14-38 08:31:00 Test Item Value Reference Range Interpretation Comments Eosinophils # (test code 0.2 See_Comment [A utomated message] The = Eosinophils #) system [facility] h generated this result tra nsmitted reference range : <=0.5. The reference r fernando was not used to int erpret this result as normal/abnormal . [facility] Syst[id number] 08:31:00 Test Item Value Reference Range Interpretation Comments Monocytes # (test code 0.4 See_Comment [Aut omated message] The = Monocytes #) system which generated this result tra nsmitted reference range : <=0.8. The reference r fernando was not used to int erpret this result as normal/abnormal . [facility]2018-06-18 08:31:00 Test Item Value Reference Range Interpretation Comments eGFR (test code = eGFR) 86 [facility]2018-06-18 08:31:00 Test Item Value Reference Range Interpretation Comments BUN (test code = BUN) 18 7-22 [place] [id number] 08:31:00 Test Item Value Reference Range Interpretation Comments Glucose Lvl (test code = Glucose Lvl) 181 70-99 [facility]2018-06-18 08:31:00 Test Item Value Reference Range Interpretation Comments Creatinine Lvl (test code = Creatinine 0.61 0.50-1.40 Lvl) [facility]2018-06-18 08:31:00 Test Item Value Reference Range Interpretation Comments Calcium Lvl (test code = Calcium Lvl) 8.5 8.5-10.5 [place] 743298-06-18 08:31:00 Test Item Value Reference Range Interpretation Comments CO2 (test code = CO2) 34 24-32 [facility]2018-06-18 08:31:00 Test Item Value Reference Range Interpretation Comments Chloride Lvl (test code = Chloride Lvl) 88 95-109 [facility]2018-06-18 08:31:00 Test Item Value Reference Range Interpretation Comments Potassium Lvl (test code = Potassium 4.3 3.5-5.1 Lvl) [facility]2018-06-18 08:31:00 Test Item Value Reference Range Interpretation Comments Sodium Lvl (test code = Sodium Lvl) 131 135-145 [facility]2018-06-18 08:31:00 Test Item Value Reference Range Interpretation Comments AGAP (test code = AGAP) 13.3 10.0-20.0 [facility] SystemAchcmmpDWTDUICNBW9293-18-67 08:31:00 Test Item Value Reference Range Interpretation Comments Hgb (test code = Hgb) 9.4 12.0-16.0 [place] 259328-06-18 08:31:00 Test Item Value Reference Range Interpretation Comments RBC (test code = RBC) 3.38 4.20-5.40 [place] 259328-06-18 08:31:00 Test Item Value Reference Range Interpretation Comments WBC (test code = WBC) 8.8 3.7-10.4 [place] 259328-06-18 08:31:00 Test Item Value Reference Range Interpretation Comments Hct (test code = Hct) 27.7 36.0-48.0 [facility]tqvvlhNXMAWZWIZB8401-35-16 08:31:00 Test Item Value Reference Range Interpretation Comments MPV (test code = MPV) 8.5 7.4-10.4 [facility] WfoaeqrMABCWPPJIW3611-52-30 08:31:00 Test Item Value Reference Range Interpretation Comments Platelet (test code = Platelet) 213 133-450 [facility]wks[facility]ucUKXKMOGSAP6578-23-49 08:31:00 Test Item Value Reference Range Interpretation Comments RDW (test code = RDW) 15.1 11.5-14.5 [facility]oundAzkqdlhZLKTYAMOFP9263-68-35 08:31:00 Test Item Value Reference Range Interpretation Comments MCHC (test code = MCHC) 34.0 32.0-36.0 [facility] HospitalFsyoyzhWNFMHCMCSY2987-06-65 08:31:00 Test Item Value Reference Range Interpretation Comments MCH (test code = MCH) 27.8 pg 27.0-31.0 [facility]HadzudhMYGWPHZISK1976-42-75 08:31:00 Test Item Value Reference Range Interpretation Comments MCV (test code = MCV) 81.8 80.0-98.0 [facility]annCARDIAC FQMZZTN8905-96-04 06:00:00 Test Item Value Reference Range Interpretation Comments BNP (test code = BNP) 188 [facility]annCHEM [id number] 06:00:00 Test Item Value Reference Range Interpretation Comments Phosphorus (test code = Phosphorus) 2.7 2.5-4.5 [facility]annCHE[facility] [id number] 06:00:00 Test Item Value Reference Range Interpretation Comments Calcium Lvl (test code = Calcium Lvl) 8.8 8.5-10.5 [facility]CHE[facility] EQMEK5141-71-33 06:00:00 Test Item Value Reference Range Interpretation Comments Chloride Lvl (test code = Chloride Lvl) 84 95-109 [facility]CHE[facility] [id number] 06:00:00 Test Item Value Reference Range Interpretation Comments AGAP (test code = AGAP) 12.4 10.0-20.0 [facility]CHE[facility] [id number] 06:00:00 Test Item Value Reference Range Interpretation Comments CO2 (test code = CO2) 37 24-32 [facility]NUILO8859-54-83 06:00:00 Test Item Value Reference Range Interpretation Comments eGFR (test code = eGFR) 88 [facility]2018-06-17 06:00:00 Test Item Value Reference Range Interpretation Comments Glucose Lvl (test code = Glucose Lvl) 146 70-99 [place] 743298-06-17 06:00:00 Test Item Value Reference Range Interpretation Comments BUN (test code = BUN) 13 7-22 [facility]2018-06-17 06:00:00 Test Item Value Reference Range Interpretation Comments Creatinine Lvl (test code = Creatinine 0.57 0.50-1.40 Lvl) [facility]2018-06-17 06:00:00 Test Item Value Reference Range Interpretation Comments Sodium Lvl (test code = Sodium Lvl) 130 135-145 [facility]2018-06-17 06:00:00 Test Item Value Reference Range Interpretation Comments Potassium Lvl (test code = Potassium 3.4 3.5-5.1 Lvl) [facility]2018-06-17 06:00:00 Test Item Value Reference Range Interpretation Comments Magnesium Lvl (test code = Magnesium 2.0 1.8-2.4 Lvl) [place] 862888-06-16 15:56:00 Test Item Value Reference Range Interpretation Comments U Osmolality (test code = U Osmolality) 311 300-800 [facility]2018-06-16 15:56:00 Test Item Value Reference Range Interpretation Comments U Creatinine (test code = U Creatinine) 10.70 [facility]2018-06-16 15:56:00 Test Item Value Reference Range Interpretation Comments U Sodium (test code = U Sodium) 84 [place] 862888-06-16 15:56:00 Test Item Value Reference Range Interpretation Comments U Potassium (test code = U Potassium) 42.2 [facility]2018-06-16 15:56:00 Test Item Value Reference Range Interpretation Comments U Chloride (test code = U Chloride) 118 [facility]2018-06-16 05:11:00 Test Item Value Reference Range Interpretation Comments Osmolality (test code = Osmolality) 269 280-300 [facility]2018-06-16 05:11:00 Test Item Value Reference Range Interpretation Comments Magnesium Lvl (test code = Magnesium 1.6 1.8-2.4 Lvl) [facility]2018-06-16 05:11:00 Test Item Value Reference Range Interpretation Comments Phosphorus (test code = Phosphorus) 2.3 2.5-4.5 [facility] SystemAgjkeccYWXNKAUSIG0979-93-74 05:11:00 Test Item Value Reference Range Interpretation Comments Segs-Bands # (test code = Segs-Bands #) 6.2 1.5-8.1 [facility] SystemPewsxbaMVYTITKZMK5806-97-33 05:11:00 Test Item Value Reference Range Interpretation Comments Lymphocytes # (test code = Lymphocytes 1.1 1.0-5.5 #) [facility] SystemAszfnugKWAVDOUCBN6651-81-67 05:11:00 Test Item Value Reference Range Interpretation Comments Basophils (test code = 0.2 See_Comment [Aut omated message] The Basophils) system which ge nerated this result tra nsmitted reference range : <=1.0. The reference r fernando was not used to int erpret this result as normal/abnormal . [facility] SystemNcnibibJXYBWGGVJA1267-11-96 05:11:00 Test Item Value Reference Range Interpretation Comments Eosinophils (test code = 2.3 See_Comment [A utomated message] The Eosinophils) system which ge nerated this result tra nsmitted reference range : <=4.0. The reference r fernando was not used to int erpret this result as normal/abnormal . [facility] SystemZzvemtlJMABYDHWVA0696-55-32 05:11:00 Test Item Value Reference Range Interpretation Comments Monocytes (test code = Monocytes) 8.1 2.0-12.0 [facility] SystemSzukmmkVRCKJNKYXT9775-36-94 05:11:00 Test Item Value Reference Range Interpretation Comments Lymphocytes (test code = Lymphocytes) 13.8 20.0-40.0 [facility] SystemGkmezcxASVAZJIJHY4878-88-86 05:11:00 Test Item Value Reference Range Interpretation Comments Segs (test code = Segs) 75.6 45.0-75.0 [facility] SystemMzgdwewIWFLBHCEBK3550-80-64 05:11:00 Test Item Value Reference Range Interpretation Comments Eosinophils # (test code 0.2 See_Comment [A utomated message] The = Eosinophils #) system whic h generated this result tra nsmitted reference range : <=0.5. The reference r fernando was not used to int erpret this result as normal/abnormal . [facility] SystemXfxxujoNSWSUQNPGP1661-85-21 05:11:00 Test Item Value Reference Range Interpretation Comments Monocytes # (test code 0.7 See_Comment [Aut omated message] The = Monocytes #) system which generated this result tra nsmitted reference range : <=0.8. The reference r fernando was not used to int erpret this result as normal/abnormal . [facility] SystemOoldkdlVWZDSENQOG9240-89-04 05:11:00 Test Item Value Reference Range Interpretation Comments Platelet (test code = Platelet) 185 133-450 [facility] SystemRdqkahuTTPAKTQWOG9614-38-28 05:11:00 Test Item Value Reference Range Interpretation Comments RDW (test code = RDW) 15.0 11.5-14.5 [facility] SystemUdcgokqBHUUNNMCZY5051-93-03 05:11:00 Test Item Value Reference Range Interpretation Comments MCHC (test code = MCHC) 34.1 32.0-36.0 [facility] SystemBazhquoJVDPDWNIQY6263-43-99 05:11:00 Test Item Value Reference Range Interpretation Comments MPV (test code = MPV) 8.2 7.4-10.4 [facility] SystemVlgqnqkWXJEFOTHKH7303-80-09 05:11:00 Test Item Value Reference Range Interpretation Comments MCV (test code = MCV) 81.1 80.0-98.0 [facility] SystemNyzrnkuWQGPVRAUNC7665-19-93 05:11:00 Test Item Value Reference Range Interpretation Comments MCH (test code = MCH) 27.7 pg 27.0-31.0 [facility] SystemOwbtnblODUIBTWDRW0810-62-42 05:11:00 Test Item Value Reference Range Interpretation Comments RBC (test code = RBC) 3.46 4.20-5.40 [facility] SystemMnzmindOZPHADJQDV1230-98-81 05:11:00 Test Item Value Reference Range Interpretation Comments Hct (test code = Hct) 28.1 36.0-48.0 [facility] SystemRmnknrmGIPBEUVVHR8255-66-38 05:11:00 Test Item Value Reference Range Interpretation Comments Hgb (test code = Hgb) 9.6 12.0-16.0 [facility] SystemWmpxsllOCTGNUAWKR8927-81-33 05:11:00 Test Item Value Reference Range Interpretation Comments WBC (test code = WBC) 8.2 3.7-10.4 [facility]2018-06-16 05:11:00 Test Item Value Reference Range Interpretation Comments Ca Ion WB (test code = Ca Ion WB) 1.05 1.05-1.25 [facility]2018-06-16 05:11:00 Test Item Value Reference Range Interpretation Comments Ca Norm WB (test code = Ca Norm WB) 1.12 1.05-1.25 [facility] SystemSxmihxaAPDWPUDEJO4070-67-60 05:37:00 Test Item Value Reference Range Interpretation Comments Segs (test code = Segs) 84.3 45.0-75.0 [facility] SystemHwhbtbpSUBHJGWEMA1343-10-32 05:37:00 Test Item Value Reference Range Interpretation Comments Lymphocytes (test code = Lymphocytes) 7.4 20.0-40.0 [facility] SystemImaucrhVEPCSVJGAI1774-55-43 05:37:00 Test Item Value Reference Range Interpretation Comments Eosinophils # (test code 0.1 See_Comment [A utomated message] The = Eosinophils #) system [facility] h generated this result tra nsmitted reference range : <=0.5. The reference r fernando was not used to int erpret this result as normal/abnormal . [facility] SystemXayosibOTNSZZWCST5624-16-77 05:37:00 Test Item Value Reference Range Interpretation Comments Lymphocytes # (test code = Lymphocytes 0.6 1.0-5.5 #) [facility] SystemEvfvwwdYGYSPWGHEW8183-87-58 05:37:00 Test Item Value Reference Range Interpretation Comments Monocytes # (test code 0.5 See_Comment [Aut omated message] The = Monocytes #) system which generated this result tra nsmitted reference range : <=0.8. The reference r fernando was not used to int erpret this result as normal/abnormal . [facility] SystemTlkrqqcSAVIDFWGTI2786-36-26 05:37:00 Test Item Value Reference Range Interpretation Comments Monocytes (test code = Monocytes) 6.7 2.0-12.0 [facility] SystemBwrbqvpSCQVKYVSLV7917-65-84 05:37:00 Test Item Value Reference Range Interpretation Comments Eosinophils (test code = 1.4 See_Comment [A utomated message] The Eosinophils) system which ge nerated this result tra nsmitted reference range : <=4.0. The reference r fernando was not used to int erpret this result as normal/abnormal . [facility] SystemDhxoqfxOZCLFYHWGI3494-21-69 05:37:00 Test Item Value Reference Range Interpretation Comments Basophils (test code = 0.2 See_Comment [Aut omated message] The Basophils) system which ge nerated this result tra nsmitted reference range : <=1.0. The reference r fernando was not used to int erpret this result as normal/abnormal . [facility] SystemQwmlgbuGRDAJPDTWC4283-30-78 05:37:00 Test Item Value Reference Range Interpretation Comments Segs-Bands # (test code = Segs-Bands #) 6.3 1.5-8.1 [facility] SystemCnlqmctXCPYWVAZDM5772-54-60 05:37:00 Test Item Value Reference Range Interpretation Comments MCV (test code = MCV) 82.1 80.0-98.0 [facility] SystemOdqoiboCQMZALUXDY7995-01-16 05:37:00 Test Item Value Reference Range Interpretation Comments Hct (test code = Hct) 27.1 36.0-48.0 [facility] SystemQsuskxtNFUFXAXSPA9049-60-88 05:37:00 Test Item Value Reference Range Interpretation Comments MCHC (test code = MCHC) 34.5 32.0-36.0 [facility] SystemAvegtdiBVYQKGEIJJ1465-61-38 05:37:00 Test Item Value Reference Range Interpretation Comments MCH (test code = MCH) 28.3 pg 27.0-31.0 [facility] SystemSrqjpifXHBMOCGIAO8123-90-90 05:37:00 Test Item Value Reference Range Interpretation Comments RBC (test code = RBC) 3.29 4.20-5.40 [facility] SystemSwfmlkvPIJKLNFBVW7512-37-53 05:37:00 Test Item Value Reference Range Interpretation Comments WBC (test code = WBC) 7.5 3.7-10.4 [facility] SystemBsfqzapKFZOYNMTQF3541-79-30 05:37:00 Test Item Value Reference Range Interpretation Comments RDW (test code = RDW) 15.1 11.5-14.5 [facility] SystemKefddytAVFJOCOLVX3278-59-24 05:37:00 Test Item Value Reference Range Interpretation Comments Platelet (test code = Platelet) 191 133-450 [facility] SystemNcwyypkSRQGZYCFRR3770-72-24 05:37:00 Test Item Value Reference Range Interpretation Comments MPV (test code = MPV) 7.8 7.4-10.4 [facility] SystemYhviisiOUVZUHBNDO9926-29-51 05:37:00 Test Item Value Reference Range Interpretation Comments Hgb (test code = Hgb) 9.3 12.0-16.0 [facility]2018-06-15 05:37:00 Test Item Value Reference Range Interpretation Comments Ca Norm WB (test code = Ca Norm WB) 1.08 1.05-1.25 [facility]2018-06-15 05:37:00 Test Item Value Reference Range Interpretation Comments Ca Ion WB (test code = Ca Ion WB) 1.04 1.05-1.25 [facility]2018-06-14 11:46:00 Test Item Value Reference Range Interpretation Comments A/G Ratio (test code = A/G Ratio) 0.6 1 0.7-1.6 [facility]2018-06-14 11:46:00 Test Item Value Reference Range Interpretation Comments Globulin (test code = Globulin) 3.6 2.7-4.2 [facility]2018-06-14 11:46:00 Test Item Value Reference Range Interpretation Comments Bili Indirect (test 0.4 See_Comment [Automa itmur message] The code = Bili Indirect) system which generated this result tra nsmitted reference range : <=1.0. The reference r fernando was not used to int erpret this result as normal/abnormal . [facility]2018-06-14 11:46:00 Test Item Value Reference Range Interpretation Comments Bili Direct (test code 0.7 See_Comment [Aut omated message] The = Bili Direct) system which generated this result tra nsmitted reference range : <=0.3. The reference r fernando was not used to int erpret this result as jasmyne l/abnormal. [facility]2018-06-14 11:46:00 Test Item Value Reference Range Interpretation Comments Alk Phos (test code = Alk Phos) 276 39-136 [facility]2018-06-14 11:46:00 Test Item Value Reference Range Interpretation Comments AST (test code = AST) 44 See_Comment [Auto mated message] The system which ge nerated this result transmit timur reference range : <=37. The reference range was not used to interpr et this result as jasmyne l/abnormal. [facility]2018-06-14 11:46:00 Test Item Value Reference Range Interpretation Comments ALT (test code = ALT) 54 See_Comment [Auto mated message] The system which ge nerated this result transmit timur reference range : <=65. The reference range was not used to interpr et this result as jasmyne l/abnormal. [facility]2018-06-14 11:46:00 Test Item Value Reference Range Interpretation Comments Albumin Lvl (test code = Albumin Lvl) 2.3 3.5-5.0 [facility]2018-06-14 11:46:00 Test Item Value Reference Range Interpretation Comments Total Protein (test code = Total 5.9 6.4-8.4 Protein) [facility]2018-06-14 11:46:00 Test Item Value Reference Range Interpretation Comments Bili Total (test code = Bili Total) 1.1 0.2-1.3 [place] [id number] 11:46:00 Test Item Value Reference Range Interpretation Comments Aldosterone (test code = no gt See_Comment [A utomated message] The Aldosterone) system which ge nerated this result tra nsmitted reference range : <=30.0. The reference r fernando was not used to int erpret this result as normal/abnormal . [place] [id number] 11:46:00 Test Item Value Reference Range Interpretation Comments Renin Activity (test code = Renin 0.527 0.167-5.380 Activity) [facility] AND [id number] 11:46:00 Test Item Value Reference Range Interpretation Comments UA Urobilinogen (test code = UA <=1.0 mg/dL 0.1-1.0 Urobilinogen) [facility] AND [id number] 11:46:00 Test Item Value Reference Range Interpretation Comments UA Mucus (test code = UA Mucus) Few /LPF [facility] AND [id number] 11:46:00 Test Item Value Reference Range Interpretation Comments UA Sq Epi (test code = UA Sq Occasional /LPF Epi) [facility] AND [id number] 11:46:00 Test Item Value Reference Range Interpretation Comments UA Nitrite (test code Negative (02/22/18 6:46 = UA Nitrite) AM) [facility] AND [id number] 11:46:00 Test Item Value Reference Range Interpretation Comments UA Hyal Cast (test 1 See_Comment [Automat ed message] The code = UA Hyal Cast) system which generated this result transmit timur reference range : <=2. The reference range was not used to interpr et this result as jasmyne l/abnormal. [facility] AND [id number] 11:46:00 Test Item Value Reference Range Interpretation Comments UA RBC (test code = 1 See_Comment [Automa timur message] The UA RBC) system which ge nerated this result transmit timur reference range : <=2. The reference range was not used to interpr et this result as jasmyne l/abnormal. [facility] AND [id number] 11:46:00 Test Item Value Reference Range Interpretation Comments UA Leuk Est (test Negative (02/22/18 6:46 code = UA Leuk Est) AM) [facility] AND [id number] 11:46:00 Test Item Value Reference Range Interpretation Comments UA WBC (test code = 3 See_Comment [Automa timur message] The UA WBC) system which ge nerated this result transmit timur reference range : <=5. The reference range was not used to interpr et this result as jasmyne l/abnormal. [facility] AND [id number] 11:46:00 Test Item Value Reference Range Interpretation Comments UA Turbidity (test code Slight *ABN*(02/22/18 = UA Turbidity) 6:46 AM) [facility] AND [id number] 11:46:00 Test Item Value Reference Range Interpretation Comments UA Color (test code = Yellow *NA*(02/22/18 UA Color) 6:46 AM) [facility] AND [id number] 11:46:00 Test Item Value Reference Range Interpretation Comments UA pH (test code = UA pH) 6.0 1 5.0-8.[address] [facility] AND [id number] 11:46:00 Test Item Value Reference Range Interpretation Comments UA Ketones (test code = UA Negative mg/dL Ketones) [facility] AND [id number] 11:46:00 Test Item Value Reference Range Interpretation Comments UA Protein (test code = UA Protein) 20 mg/dL [facility] AND [id number] 11:46:00 Test Item Value Reference Range Interpretation Comments UA Spec Grav (test code = UA Spec 1.011 1 Grav) [facility] AND [id number] 11:46:00 Test Item Value Reference Range Interpretation Comments UA Glucose (test code = UA Glucose) 70 mg/dL [facility] AND [id number] 11:46:00 Test Item Value Reference Range Interpretation Comments UA Bili (test code = Negative *NA*(02/22/18 UA Bili) 6:46 AM) [facility] AND [id number] 11:46:00 Test Item Value Reference Range Interpretation Comments UA Blood (test code = Negative (02/22/18 6:46 UA Blood) AM) [facility]2018-06-14 11:46:00 Test Item Value Reference Range Interpretation Comments U Creatinine (test code = U Creatinine) 22.10 [facility]2018-06-14 11:46:00 Test Item Value Reference Range Interpretation Comments U Chloride (test code = U Chloride) 155 [facility]2018-06-14 11:46:00 Test Item Value Reference Range Interpretation Comments U Potassium (test code = U Potassium) 61.1 [facility]2018-06-14 11:46:00 Test Item Value Reference Range Interpretation Comments U Sodium (test code = U Sodium) 98 [facility]2018-06-14 04:44:00 Test Item Value Reference Range Interpretation Comments Magnesium Lvl (test code = Magnesium 2.4 1.8-2.4 Lvl) [facility]2018-06-14 04:44:00 Test Item Value Reference Range Interpretation Comments Phosphorus (test code = Phosphorus) 2.6 2.5-4.5 [facility] [id number] 04:44:00 Test Item Value Reference Range Interpretation Comments Ca Ion WB (test code = Ca Ion WB) 1.06 1.05-1.25 [facility] [id number] 04:44:00 Test Item Value Reference Range Interpretation Comments Ca Norm WB (test code = Ca Norm WB) 1.09 1.05-1.25 [facility]Sc[facility] [id number] 22:33:00 Test Item Value Reference Range Interpretation Comments Lactic Acid Lvl (test code = Lactic 1.4 0.5-2.2 Acid Lvl) [facility]2018-06-13 20:03:00 Test Item Value Reference Range Interpretation Comments U Osmolality (test code = U Osmolality) 360 300-800 [facility]2018-06-13 20:03:00 Test Item Value Reference Range Interpretation Comments U Sodium (test code = U Sodium) 88 [facility]2018-06-13 15:44:00 Test Item Value Reference Range Interpretation Comments Albumin Lvl (test code = Albumin Lvl) 2.6 3.5-5.0 [facility]2018-06-13 15:44:00 Test Item Value Reference Range Interpretation Comments Total Protein (test code = Total 6.7 6.4-8.4 Protein) [facility]2018-06-13 15:44:00 Test Item Value Reference Range Interpretation Comments B/C Ratio (test code = B/C Ratio) 12 1 6-25 [facility]2018-06-13 15:44:00 Test Item Value Reference Range Interpretation Comments ALT (test code = ALT) 67 See_Comment [Auto mated message] The system which ge nerated this result transmit timur reference range : <=65. The reference range was not used to interpr et this result as jasmyne l/abnormal. [facility]2018-06-13 15:44:00 Test Item Value Reference Range Interpretation Comments Bili Total (test code = Bili Total) 1.2 0.2-1.3 [facility]2018-06-13 15:44:00 Test Item Value Reference Range Interpretation Comments AST (test code = AST) 77 See_Comment [Auto mated message] The system which ge nerated this result transmit timur reference range : <=37. The reference range was not used to interpr et this result as jasmyne l/abnormal. [facility]2018-06-13 15:44:00 Test Item Value Reference Range Interpretation Comments A/G Ratio (test code = A/G Ratio) 0.6 1 0.7-1.6 [facility]2018-06-13 15:44:00 Test Item Value Reference Range Interpretation Comments Alk Phos (test code = Alk Phos) 269 39-136 [facility] [id number] 15:44:00 Test Item Value Reference Range Interpretation Comments Globulin (test code = Globulin) 4.1 2.7-4.2 [facility] [id number] 15:44:00 Test Item Value Reference Range Interpretation Comments Osmolality (test code = Osmolality) 270 280-300 [facility] [id number] 08:30:00 Test Item Value Reference Range Interpretation Comments Hgb A1C (test code = Hgb A1C) 6.5 [facility]oundLand[facility] Games And ToysCARWebGen SystemsAC [id number] 06:01:00 Test Item Value Reference Range Interpretation Comments proBNP (test code = 4235 See_Comment [Automa timur message] The proBNP) system which ge nerated this result tra nsmitted reference range : <=450. The reference r fernando was not used to int erpret this result as jasmyne l/abnormal. [facility] MoundAdeptence [id number] 06:01:00 Test Item Value Reference Range Interpretation Comments BNP (test code = BNP) 345 [facility] [employer] [id number] 06:01:00 Test Item Value Reference Range Interpretation Comments Lactic Acid Lvl (test code = Lactic 1.7 0.5-2.2 Acid Lvl) [facility] [id number] 06:01:00 Test Item Value Reference Range Interpretation Comments Procalcitonin Lvl (test 0.41 See_Comment [Au tomated message] code = Procalcitonin Lvl) Th e system which generated this result transmitted ref erence range: <=0.10. The reference range was not used to interpr et this result as normal/abnormal . [facility] [employer]2018-06-12 11:57:00 Test Item Value Reference Range Interpretation Comments Bili Indirect (test 0.4 See_Comment [Automa timru message] The code = Bili Indirect) system which generated this result tra nsmitted reference range : <=1.0. The reference r fernando was not used to int erpret this result as normal/abnormal . [facility] [employer] [id number] 11:57:00 Test Item Value Reference Range Interpretation Comments Bili Total (test code = Bili Total) 0.7 0.2-1.3 [facility]2018-06-12 11:57:00 Test Item Value Reference Range Interpretation Comments Bili Direct (test code 0.3 See_Comment [Aut omated message] The = Bili Direct) system which generated this result tra nsmitted reference range : <=0.3. The reference r fernando was not used to int erpret this result as jasmyne l/abnormal. [facility]2018-06-12 11:57:00 Test Item Value Reference Range Interpretation Comments AST (test code = AST) 87 See_Comment [Auto mated message] The system which ge nerated this result transmit timur reference range : <=37. The reference range was not used to interpr et this result as jasmyne l/abnormal. [facility]2018-06-12 11:57:00 Test Item Value Reference Range Interpretation Comments ALT (test code = ALT) 56 See_Comment [Auto mated message] The system which ge nerated this result transmit timur reference range : <=65. The reference range was not used to interpr et this result as jasmyne l/abnormal. [facility]2018-06-12 11:57:00 Test Item Value Reference Range Interpretation Comments Alk Phos (test code = Alk Phos) 162 39-136 [facility]2018-06-12 11:57:00 Test Item Value Reference Range Interpretation Comments Albumin Lvl (test code = Albumin Lvl) 2.5 3.5-5.0 [facility]2018-06-12 11:57:00 Test Item Value Reference Range Interpretation Comments Total Protein (test code = Total 6.0 6.4-8.4 Protein) [facility]2018-06-12 11:57:00 Test Item Value Reference Range Interpretation Comments Globulin (test code = Globulin) 3.5 2.7-4.2 [facility]2018-06-12 11:57:00 Test Item Value Reference Range Interpretation Comments A/G Ratio (test code = A/G Ratio) 0.7 1 0.7-1.6 [facility]2018-06-12 11:57:00 Test Item Value Reference Range Interpretation Comments Procalcitonin Lvl (test 0.35 See_Comment [Au tomated message] code = Procalcitonin Lvl) Th e system which generated this result transmitted ref erence range: <=0.10. The reference range was not used to interpr et this result as normal/abnormal . [facility] - [id number] 17:56:00 Test Item Value Reference Range Interpretation Comments MRSA by PCR (test Negative (02/19/18 12:56 code = MRSA by PCR) PM) [facility] AND [id number] 11:34:00 Test Item Value Reference Range Interpretation Comments UA Leuk Est (test Moderate *ABN*(02/19/18 code = UA Leuk Est) 6:34 AM) [facility] AND [id number] 11:34:00 Test Item Value Reference Range Interpretation Comments UA Urobilinogen (test code = UA 0.2 0.1-1.0 Urobilinogen) [facility] AND [id number] 11:34:00 Test Item Value Reference Range Interpretation Comments UA Nitrite (test code Positive *ABN*(02/19/18 = UA Nitrite) 6:34 AM) [facility] AND [id number] 11:34:00 Test Item Value Reference Range Interpretation Comments UA pH (test code = UA pH) 8.5 1 5.0-8.[address] [facility] AND [id number] 11:34:00 Test Item Value Reference Range Interpretation Comments UA Protein (test code Negative (02/19/18 6:34 = UA Protein) AM) [facility] AND [id number] 11:34:00 Test Item Value Reference Range Interpretation Comments UA Glucose (test code Negative (02/19/18 6:34 = UA Glucose) AM) [facility] AND [id number] 11:34:00 Test Item Value Reference Range Interpretation Comments UA Blood (test code = Negative (02/19/18 6:34 UA Blood) AM) [facility] AND [id number] 11:34:00 Test Item Value Reference Range Interpretation Comments UA Ketones (test code Negative *NA*(02/19/18 = UA Ketones) 6:34 AM) [facility] AND [id number] 11:34:00 Test Item Value Reference Range Interpretation Comments UA Bili (test code = Negative *NA*(02/19/18 UA Bili) 6:34 AM) [facility] AND [id number] 11:34:00 Test Item Value Reference Range Interpretation Comments UA Color (test code = Yellow *NA*(02/19/18 UA Color) 6:34 AM) [facility] [id number] 11:34:00 Test Item Value Reference Range Interpretation Comments UA Spec Grav (test code = UA Spec 1.010 1 Grav) [facility] [id number] 11:34:00 Test Item Value Reference Range Interpretation Comments UA Turbidity (test code = Clear (02/19/18 6:34 UA Turbidity) AM) [facility] [id number] 11:34:00 Test Item Value Reference Range Interpretation Comments UA Amorph Aliya (test code = Occasional /HPF UA Amorph Aliya) [facility] [id number] 11:34:00 Test Item Value Reference Range Interpretation Comments UA Sq Epi (test code = UA Sq Occasional /LPF Epi) [facility] [id number] 11:34:00 Test Item Value Reference Range Interpretation Comments UA WBC (test code = 28 See_Comment [Automa timur message] The UA WBC) system which ge nerated this result transmit timur reference range : <=5. The reference range was not used to interpr et this result as jasmyne l/abnormal. [facility] [id number] 11:34:00 Test Item Value Reference Range Interpretation Comments UA RBC (test code = 8 See_Comment [Automa timur message] The UA RBC) system which ge nerated this result transmit timur reference range : <=2. The reference range was not used to interpr et this result as jasmyne l/abnormal. [facility] AND [id number] 11:34:00 Test Item Value Reference Range Interpretation Comments UA Mucus (test code = UA Mucus) Moderate /LPF [facility]annCARDIAC [id number] 10:49:00 Test Item Value Reference Range Interpretation Comments Troponin-T (test code no gt See_Comment [Auto mated message] The = Troponin-T) system which g enerated this result transmit timur reference range : <=0.100. The reference r fernando was not used to interpr et this result as jasmyne l/abnormal. [facility]FwnbyeeJBVNLSUEDP6400-55-66 10:49:00 Test Item Value Reference Range Interpretation Comments Plav Effect Plt (test code = Plav 281 Effect Plt) [facility] HospitalWqdfrboUKEONWWLMG9644-44-79 10:49:00 Test Item Value Reference Range Interpretation Comments ASA Effect Plt (test code = ASA Effect 565 Plt) [facility] [id number] 10:06:00 Test Item Value Reference Range Interpretation Comments Troponin-I (test code 0.04 See_Comment [Auto mated message] The = Troponin-I) system which g enerated this result transmit timur reference range : <=0.40. The reference r fernando was not used to interpr et this result as jasmyne l/abnormal. [facility]Mesh[facility] [id number] 09:31:00 Test Item Value Reference Range Interpretation Comments FFP product (test code Product available = FFP product) (02/19/18 4:31 AM) [facility] [id number] 08:36:00 Test Item Value Reference Range Interpretation Comments Lactic Acid Lvl (test code = Lactic 1.7 0.5-2.2 Acid Lvl) [facility] OBDZNRF7539-06-39 08:31:00 Test Item Value Reference Range Interpretation Comments Antibody Scrn (test Negative (02/19/18 3:31 code = Antibody Scrn) AM) [facility] [id number] 08:31:00 Test Item Value Reference Range Interpretation Comments ABO/Rh (test code = ABO/Rh) A POS [facility] HospitalBwnerfoQZEAFITZYG9275-18-58 08:31:00 Test Item Value Reference Range Interpretation Comments PTT (test code = PTT) 51.4 s 22.9-35.8 [facility] HospitalSlhtfnmRPPDWDHYIZ1176-64-78 08:31:00 Test Item Value Reference Range Interpretation Comments INR (test code = INR) 1.04 1 0.85-1.17 [facility] HospitalSsggqstIPUUBKYDNA2717-94-01 08:31:00 Test Item Value Reference Range Interpretation Comments PT (test code = PT) 13.6 s 12.0-14.7 [facility] HospitalBqhdcczFHHNSRCCBF6832-84-57 08:31:00 Test Item Value Reference Range Interpretation Comments K-time Rapid (test code = K-time 0.8 min 0.6-2.3 Rapid) [facility] SystemZschqloBMWKCGBAKE8931-96-19 08:31:00 Test Item Value Reference Range Interpretation Comments R-time Rapid (test code = R-time 0.6 min 0.4-0.7 Rapid) [facility] SystemNzuklzdYQYUNQMGCM7436-13-97 08:31:00 Test Item Value Reference Range Interpretation Comments Split Point Rapid (test code = Split 0.5 min Point Rapid) [facility] SystemYxebhuqGFOJCPHLXU0389-31-44 08:31:00 Test Item Value Reference Range Interpretation Comments ACT (TEG) Rapid (test code = ACT (TEG) 105 s 86-118 Rapid) [facility] SystemUkiiopyWXOOVNKAHN6167-17-79 08:31:00 Test Item Value Reference Range Interpretation Comments G-value Rapid (test code = G-value 17.0 5.0-11.6 Rapid) [facility] SystemGoalyedPGSKGZIFDU6632-91-23 08:31:00 Test Item Value Reference Range Interpretation Comments Estimated % Lysis Rapid 1.2 See_Comment [Au tomated message] The (test code = Estimated syste m which generated % Lysis Rapid) this result t ransmitted reference range : <=7.5. The reference r fernando was not used to int erpret this result as normal/abnormal . [facility] SystemQjoavrkLRPLAMTYZC0509-04-81 08:31:00 Test Item Value Reference Range Interpretation Comments Angle Rapid (test code = Angle 81 degrees 64-80 Rapid) [facility] SystemZsijmnaTPXYZQYFOM5753-56-85 08:31:00 Test Item Value Reference Range Interpretation Comments Max Amplitude Rapid (test code = Max 77 mm 52-71 Amplitude Rapid) [facility]CdhqaoxSMHQFPXHYLYJ0863-98-99 13:38:00 Test Item Value Reference Range Interpretation Comments Potassium Lvl (test code = Potassium 3.4 3.5-5.1 Lvl) [facility]2018-06-04 10:51:00 Test Item Value Reference Range Interpretation Comments Calcium Lvl (test code = Calcium Lvl) 8.7 8.5-10.5 [facility]2018-06-04 10:51:00 Test Item Value Reference Range Interpretation Comments AGAP (test code = AGAP) 14.9 10.0-20.0 [facility]2018-06-04 10:51:00 Test Item Value Reference Range Interpretation Comments Glucose Lvl (test code = Glucose Lvl) 110 70-99 [facility]2018-06-04 10:51:00 Test Item Value Reference Range Interpretation Comments CO2 (test code = CO2) [facility]2018-06-04 10:51:00 Test Item Value Reference Range Interpretation Comments Creatinine Lvl (test code = Creatinine 0.62 0.50-1.40 Lvl) [facility]2018-06-04 10:51:00 Test Item Value Reference Range Interpretation Comments BUN (test code = BUN) 6 7-22 [facility]2018-06-04 10:51:00 Test Item Value Reference Range Interpretation Comments Sodium Lvl (test code = Sodium Lvl) 140 135-145 [facility]2018-06-04 10:51:00 Test Item Value Reference Range Interpretation Comments Potassium Lvl (test code = Potassium 2.9 3.5-5.1 Lvl) [facility]2018-06-04 10:51:00 Test Item Value Reference Range Interpretation Comments Chloride Lvl (test code = Chloride Lvl) 101 95-109 [facility]2018-06-04 10:51:00 Test Item Value Reference Range Interpretation Comments eGFR (test code = eGFR) 85 [facility] HospitalDqmmaeoDOVZKSWXKKJF7511-83-56 05:33:00 Test Item Value Reference Range Interpretation Comments Sodium Lvl (test code = Sodium Lvl) 140 135-145 [facility] HospitalGovmvpqGBFWXORWJIZC9490-95-33 05:33:00 Test Item Value Reference Range Interpretation Comments Potassium Lvl (test code = Potassium 4.1 3.5-5.1 Lvl) [facility] HospitalTrozcjrYFGTTZUZUITW6704-35-61 18:24:00 Test Item Value Reference Range Interpretation Comments Sodium Lvl (test code = Sodium Lvl) 137 135-145 [facility]2018-06-01 05:20:00 Test Item Value Reference Range Interpretation Comments eGFR (test code = eGFR) 86 [facility]2018-06-01 05:20:00 Test Item Value Reference Range Interpretation Comments Chloride Lvl (test code = Chloride Lvl) 103 95-109 [facility]2018-06-01 05:20:00 Test Item Value Reference Range Interpretation Comments CO2 (test code = CO2) [facility]2018-06-01 05:20:00 Test Item Value Reference Range Interpretation Comments AGAP (test code = AGAP) 15.0 10.0-20.0 [facility]2018-06-01 05:20:00 Test Item Value Reference Range Interpretation Comments Calcium Lvl (test code = Calcium Lvl) 8.7 8.5-10.5 [facility]2018-06-01 05:20:00 Test Item Value Reference Range Interpretation Comments BUN (test code = BUN) 8 7-22 [facility]2018-06-01 05:20:00 Test Item Value Reference Range Interpretation Comments Creatinine Lvl (test code = Creatinine 0.62 0.50-1.40 Lvl) [facility]2018-06-01 05:20:00 Test Item Value Reference Range Interpretation Comments Glucose Lvl (test code = Glucose Lvl) 169 70-99 [facility] SystemWazmspgTAVRXDUEPN8947-26-55 05:20:00 Test Item Value Reference Range Interpretation Comments Lymphocytes # (test code = Lymphocytes 1.6 1.0-5.5 #) [facility] SystemBgmeyqjQNZZTQZNLN8492-25-41 05:20:00 Test Item Value Reference Range Interpretation Comments Segs-Bands # (test code = Segs-Bands #) 6.7 1.5-8.1 [facility] SystemGukwsegCSWXIDGCFA1699-55-14 05:20:00 Test Item Value Reference Range Interpretation Comments Monocytes # (test code 0.8 See_Comment [Aut omated message] The = Monocytes #) system which generated this result tra nsmitted reference range : <=0.8. The reference r fernando was not used to int erpret this result as normal/abnormal . [facility] SystemEztdlqqQJHPABLVCM0979-22-62 05:20:00 Test Item Value Reference Range Interpretation Comments Eosinophils # (test code 0.1 See_Comment [A utomated message] The = Eosinophils #) system whic h generated this result tra nsmitted reference range : <=0.5. The reference r fernando was not used to int erpret this result as normal/abnormal . [facility] SystemMqpttajJUUFVYNWRM9008-22-73 05:20:00 Test Item Value Reference Range Interpretation Comments Monocytes (test code = Monocytes) 8.3 2.0-12.0 [facility] SystemBuxxvwnCDILDGBWCZ6764-28-72 05:20:00 Test Item Value Reference Range Interpretation Comments Eosinophils (test code = 1.4 See_Comment [A utomated message] The Eosinophils) system which ge nerated this result tra nsmitted reference range : <=4.0. The reference r fernando was not used to int erpret this result as normal/abnormal . [facility] SystemPofncndZKYDDDSDGE0297-66-30 05:20:00 Test Item Value Reference Range Interpretation Comments Basophils (test code = 0.4 See_Comment [Aut omated message] The Basophils) system which ge nerated this result tra nsmitted reference range : <=1.0. The reference r fernando was not used to int erpret this result as normal/abnormal . [facility] SystemGlocbhoEKORUXBVKV2732-40-28 05:20:00 Test Item Value Reference Range Interpretation Comments Lymphocytes (test code = Lymphocytes) 17.5 20.0-40.0 [facility] SystemPkzycmjJALPNZLJKU1105-80-16 05:20:00 Test Item Value Reference Range Interpretation Comments Segs (test code = Segs) 72.4 45.0-75.0 [facility] SystemGrqscqqIQLUNNHMBO1695-15-62 05:20:00 Test Item Value Reference Range Interpretation Comments MCV (test code = MCV) 83.0 80.0-98.0 [facility] SystemLjxbktbJCBMGYTAWO4857-43-06 05:20:00 Test Item Value Reference Range Interpretation Comments MCH (test code = MCH) 28.3 pg 27.0-31.0 [facility] SystemIvnsatzNEVJKOZBEY0060-09-13 05:20:00 Test Item Value Reference Range Interpretation Comments Hct (test code = Hct) 29.7 36.0-48.0 [facility] SystemJpescyeTCYXLLPJXW3840-36-85 05:20:00 Test Item Value Reference Range Interpretation Comments Platelet (test code = Platelet) 257 133-450 [facility] SystemQmnxjvtBCIMZILPIE6420-63-95 05:20:00 Test Item Value Reference Range Interpretation Comments MPV (test code = MPV) 8.3 7.4-10.4 [facility] SystemIdhexbmRMUQVHPPMZ5045-25-64 05:20:00 Test Item Value Reference Range Interpretation Comments RDW (test code = RDW) 15.1 11.5-14.5 [facility] SystemAjaobtrVVCTXRGSUL5208-72-85 05:20:00 Test Item Value Reference Range Interpretation Comments MCHC (test code = MCHC) 34.1 32.0-36.0 [facility] SystemMggucnjZKDZFJDNJA0801-06-13 05:20:00 Test Item Value Reference Range Interpretation Comments RBC (test code = RBC) 3.58 4.20-5.40 [facility] SystemEvgjobtLLCATBLHFW3798-76-26 05:20:00 Test Item Value Reference Range Interpretation Comments Hgb (test code = Hgb) 10.1 12.0-16.0 [facility] SystemWcpaxobKVEBMVSPPM8974-25-54 05:20:00 Test Item Value Reference Range Interpretation Comments WBC (test code = WBC) 9.3 3.7-10.4 [facility] SystemLzdsoeqLIKOMRNMKS2575-87-76 10:57:00 Test Item Value Reference Range Interpretation Comments PTT (test code = PTT) 48.4 s 22.9-35.8 [facility] SystemCmkwblbUWDJDWBMRS0973-17-66 10:57:00 Test Item Value Reference Range Interpretation Comments INR (test code = INR) 1.17 1 0.85-1.17 [facility] SystemAmrfpkdEETGBUJEFR4643-32-96 10:57:00 Test Item Value Reference Range Interpretation Comments PT (test code = PT) 15.0 s 12.0-14.7 [facility] SystemEoeviieWHXRCMNBDE8281-08-47 10:57:00 Test Item Value Reference Range Interpretation Comments Ly30 (test code = 2.3 See_Comment [Automate d message] The Ly30) system which ge nerated this result transmit timur reference range : <=7.5. The reference range was not used to interpr et this result as jasmyne l/abnormal. [facility] SystemFpwnftpTJXQWZJDRL5671-55-02 10:57:00 Test Item Value Reference Range Interpretation Comments TEG Data (test code = See Note (02/08/18 5:57 TEG Data) AM) [facility] SystemMfwutleWDPHKECLUT5564-64-71 10:57:00 Test Item Value Reference Range Interpretation Comments Coag Index (test code 4.0 1 See_Comment [Auto mated message] The = Coag Index) system which g enerated this result transmit timur reference range : <=3.0. The reference range was not used to interpr et this result as jasmyne l/abnormal. [facility] SystemHuthyfoPLQZKAHSRY0870-17-46 10:57:00 Test Item Value Reference Range Interpretation Comments G-value (test code = G-value) 12.6 4.5-11.0 [facility] SystemQzpyfxzSYBEAQRXDJ5142-09-69 10:57:00 Test Item Value Reference Range Interpretation Comments Max Amp (test code = Max Amp) 71.6 mm 50.0-70.0 [facility] SystemUzzzxobTZKKBKGEOP7786-60-77 10:57:00 Test Item Value Reference Range Interpretation Comments Angle (test code = Angle) 74.1 degrees 53.0-72.0 [facility] SystemPetcmyiYDNJZWEIAH6274-54-31 10:57:00 Test Item Value Reference Range Interpretation Comments K-time (test code = K-time) 1.1 min 1.0-3.0 [facility] SystemDwmabawUPJXXDUCCT8882-42-99 10:57:00 Test Item Value Reference Range Interpretation Comments R-time (test code = R-time) 3.3 min 5.0-10.0 [facility] SystemQsscetiCXCPZTAYTR8925-88-22 10:57:00 Test Item Value Reference Range Interpretation Comments TEG Interp (test Thrombelastograph results code = TEG show shortened value of R Interp) and increased values of both Angle Alpha and MA. These findings are suggestive of platelet and enzymatic hypercoagulation which may be seen in early phase of DIC. Monitor for DIC with DIC panel may be indicated. CPT:98930 [facility] HospitalSc[facility] YJAIK1315-26-12 05:45:00 Test Item Value Reference Range Interpretation Comments Magnesium Lvl (test code = Magnesium 2.2 1.8-2.4 Lvl) [facility]2018-05-31 05:45:00 Test Item Value Reference Range Interpretation Comments Phosphorus (test code = Phosphorus) 2.1 2.5-4.5 [facility] HospitalJmfvtenVZTYULZIQWKY2399-31-82 05:45:00 Test Item Value Reference Range Interpretation Comments AGAP (test code = AGAP) 13.5 10.0-20.0 [facility] HospitalHdtrocoYXFGQNSRMQVH9762-14-07 05:45:00 Test Item Value Reference Range Interpretation Comments BUN (test code = BUN) 13 7-22 [facility] HospitalEqcwsriZWCNJYWRVMAO8653-78-85 05:45:00 Test Item Value Reference Range Interpretation Comments Creatinine Lvl (test code = Creatinine 0.73 0.50-1.40 Lvl) [facility] HospitalFnmiesbRKLXKACXSHJG4451-31-15 05:45:00 Test Item Value Reference Range Interpretation Comments Calcium Lvl (test code = Calcium Lvl) 8.7 8.5-10.5 [facility] HospitalWonertxPCCVGULKFRGL1655-98-49 05:45:00 Test Item Value Reference Range Interpretation Comments Chloride Lvl (test code = Chloride Lvl) 105 95-109 [facility] HospitalTvwmoibXHEYDOTPBUZS0780-57-99 05:45:00 Test Item Value Reference Range Interpretation Comments CO2 (test code = CO2) 24 24-32 [facility] HospitalEnjzpzaAUERPOJJPMWP9170-83-24 05:45:00 Test Item Value Reference Range Interpretation Comments eGFR (test code = eGFR) 79 [facility] HospitalBghkmffGWAAUGXEFHFL2128-47-70 05:45:00 Test Item Value Reference Range Interpretation Comments Glucose Lvl (test code = Glucose Lvl) 139 70-99 [facility] SystemYpqycxbRWBKVWRPIX2354-73-51 05:45:00 Test Item Value Reference Range Interpretation Comments WBC (test code = WBC) 8.7 3.7-10.4 [facility] SystemCrfzmzjRBPYBTKFIW9368-84-81 05:45:00 Test Item Value Reference Range Interpretation Comments RDW (test code = RDW) 14.8 11.5-14.5 [facility] SystemHiicfonQXDHYECUBT7801-08-36 05:45:00 Test Item Value Reference Range Interpretation Comments MCHC (test code = MCHC) 33.8 32.0-36.0 [facility] SystemQxudjhdTGJOFTTCVB0533-38-95 05:45:00 Test Item Value Reference Range Interpretation Comments MCH (test code = MCH) 28.3 pg 27.0-31.0 [facility] SystemSobsfgnXAHONSJAPC2459-99-35 05:45:00 Test Item Value Reference Range Interpretation Comments MPV (test code = MPV) 8.2 7.4-10.4 [facility] SystemGdrrfneRGQRETYIKM8591-90-17 05:45:00 Test Item Value Reference Range Interpretation Comments Platelet (test code = Platelet) 228 133-450 [facility] SystemWfckpzhRUJKSTHLLL2459-25-85 05:45:00 Test Item Value Reference Range Interpretation Comments Hgb (test code = Hgb) 9.5 12.0-16.0 [facility] SystemQjhzbgyIFLSGTYNQE7280-71-91 05:45:00 Test Item Value Reference Range Interpretation Comments Hct (test code = Hct) 28.0 36.0-48.0 [facility] SystemUvthrpvIOLUNVZJMA2542-92-34 05:45:00 Test Item Value Reference Range Interpretation Comments MCV (test code = MCV) 83.8 80.0-98.0 [facility] SystemRnnvnowOGFKLXUADT8178-93-84 05:45:00 Test Item Value Reference Range Interpretation Comments RBC (test code = RBC) 3.34 4.20-5.40 [facility] SystemUtsvgroAUZCSOJERU1206-88-72 05:45:00 Test Item Value Reference Range Interpretation Comments Lymphocytes (test code = Lymphocytes) 16.6 20.0-40.0 [facility] SystemHlfiolgLQDBEWVZMZ0959-78-14 05:45:00 Test Item Value Reference Range Interpretation Comments Segs (test code = Segs) 73.5 45.0-75.0 [facility] SystemAdatrlqSDJLQUDZQA5980-43-31 05:45:00 Test Item Value Reference Range Interpretation Comments Monocytes # (test code 0.8 See_Comment [Aut omated message] The = Monocytes #) system which generated this result tra nsmitted reference range : <=0.8. The reference r fernando was not used to int erpret this result as normal/abnormal . [facility] SystemUfmkdprORRPGCKHAY2663-85-62 05:45:00 Test Item Value Reference Range Interpretation Comments Segs-Bands # (test code = Segs-Bands #) 6.4 1.5-8.1 [facility] SystemJrjxnoiSIOHCXDMPW2478-69-70 05:45:00 Test Item Value Reference Range Interpretation Comments Basophils (test code = 0.1 See_Comment [Aut omated message] The Basophils) system which ge nerated this result tra nsmitted reference range : <=1.0. The reference r fernando was not used to int erpret this result as normal/abnormal . [facility] SystemFumntegDZSWUNGTIU8529-06-82 05:45:00 Test Item Value Reference Range Interpretation Comments Eosinophils (test code = 0.4 See_Comment [A utomated message] The Eosinophils) system which ge nerated this result tra nsmitted reference range : <=4.0. The reference r fernando was not used to int erpret this result as normal/abnormal . [facility] SystemZfhmviuKLWPVPIOPM1845-57-46 05:45:00 Test Item Value Reference Range Interpretation Comments Monocytes (test code = Monocytes) 9.4 2.0-12.0 [facility] SystemQhgobsoKYPFXCNHCN0386-36-35 05:45:00 Test Item Value Reference Range Interpretation Comments Lymphocytes # (test code = Lymphocytes 1.4 1.0-5.5 #) [facility]2018-05-31 05:45:00 Test Item Value Reference Range Interpretation Comments Ca Norm WB (test code = Ca Norm WB) 1.15 1.05-1.25 [facility]2018-05-31 05:45:00 Test Item Value Reference Range Interpretation Comments Ca Ion WB (test code = Ca Ion WB) 1.12 1.05-1.25 [facility]2018-05-30 05:06:00 Test Item Value Reference Range Interpretation Comments Magnesium Lvl (test code = Magnesium 2.4 1.8-2.4 Lvl) [facility]2018-05-30 05:06:00 Test Item Value Reference Range Interpretation Comments Phosphorus (test code = Phosphorus) 2.6 2.5-4.5 [facility] SystemKasrheoUBCNISXJYC3718-16-01 05:06:00 Test Item Value Reference Range Interpretation Comments PTT (test code = PTT) 52.3 s 22.9-35.8 [facility] SystemSmhdcrzMWSWSGSFAJ8108-81-83 05:06:00 Test Item Value Reference Range Interpretation Comments PT (test code = PT) 14.8 s 12.0-14.7 [facility] SystemTbypsvjJFYWOOZIVL6917-38-32 05:06:00 Test Item Value Reference Range Interpretation Comments INR (test code = INR) 1.16 1 0.85-1.17 [facility] SystemDwngggiIZFCAISHEX1956-47-61 05:06:00 Test Item Value Reference Range Interpretation Comments Estimated % Lysis Rapid 2.0 See_Comment [Au tomated message] The (test code = Estimated syste m which generated % Lysis Rapid) this result t ransmitted reference range : <=7.5. The reference r fernando was not used to int erpret this result as normal/abnormal . [facility] SystemZzwretyFDEULSBOSS7701-44-68 05:06:00 Test Item Value Reference Range Interpretation Comments R-time Rapid (test code = R-time 0.8 min 0.4-0.7 Rapid) [facility] SystemQrozwjtZRHTFSILXC3052-80-15 05:06:00 Test Item Value Reference Range Interpretation Comments K-time Rapid (test code = K-time 0.8 min 0.6-2.3 Rapid) [facility] SystemPcntlbqTMUBBVMQUV7081-33-80 05:06:00 Test Item Value Reference Range Interpretation Comments Split Point Rapid (test code = Split 0.7 min Point Rapid) [facility] SystemWiywgppAHRZYARLMU4783-48-38 05:06:00 Test Item Value Reference Range Interpretation Comments Angle Rapid (test code = Angle 80 degrees 64-80 Rapid) [facility] SystemVhmmkoqNXDGSXSVPY3030-01-19 05:06:00 Test Item Value Reference Range Interpretation Comments Max Amplitude Rapid (test code = Max 76 mm 52-71 Amplitude Rapid) [facility] SystemFaymwnwGVJFVJNXNR5193-73-25 05:06:00 Test Item Value Reference Range Interpretation Comments ACT (TEG) Rapid (test code = ACT (TEG) 121 s 86-118 Rapid) [facility] SystemDbjpalyFXZOKDXQTF5893-59-86 05:06:00 Test Item Value Reference Range Interpretation Comments G-value Rapid (test code = G-value 15.5 5.0-11.6 Rapid) [facility] SystemPoefqelBFJSQKRHLU7144-97-23 05:06:00 Test Item Value Reference Range Interpretation Comments WBC (test code = WBC) 7.3 3.7-10.4 [facility] SystemEloifycOEJNBHQJMU4605-40-57 05:06:00 Test Item Value Reference Range Interpretation Comments RBC (test code = RBC) 3.28 4.20-5.40 [facility] SystemKodbwvhDFQGFPDWKW3864-08-71 05:06:00 Test Item Value Reference Range Interpretation Comments MPV (test code = MPV) 8.0 7.4-10.4 [facility] SystemUlcweesDFGOUDOJJC4512-40-63 05:06:00 Test Item Value Reference Range Interpretation Comments MCHC (test code = MCHC) 34.8 32.0-36.0 [facility] SystemIneuzjdCKDBZPYDPO0229-80-57 05:06:00 Test Item Value Reference Range Interpretation Comments RDW (test code = RDW) 14.6 11.5-14.5 [facility] SystemEvpniitSSQDTVABDH1173-65-33 05:06:00 Test Item Value Reference Range Interpretation Comments Platelet (test code = Platelet) 228 133-450 [facility] SystemAxelhowEVNBDKSBZL1647-89-04 05:06:00 Test Item Value Reference Range Interpretation Comments MCV (test code = MCV) 82.5 80.0-98.0 [facility] SystemAqeuaofAUMXBCMWZR8228-61-42 05:06:00 Test Item Value Reference Range Interpretation Comments MCH (test code = MCH) 28.7 pg 27.0-31.0 [facility] SystemCfemyhrWMYHZQPLBP7851-45-20 05:06:00 Test Item Value Reference Range Interpretation Comments Hgb (test code = Hgb) 9.4 12.0-16.0 [facility] SystemQmxtdivBODQYBCUNN0825-82-13 05:06:00 Test Item Value Reference Range Interpretation Comments Hct (test code = Hct) 27.0 36.0-48.0 [facility] SystemWqsmcxrJYHURINDHX4968-28-96 05:06:00 Test Item Value Reference Range Interpretation Comments Monocytes # (test code 0.9 See_Comment [Aut omated message] The = Monocytes #) system which generated this result tra nsmitted reference range : <=0.8. The reference r fernando was not used to int erpret this result as normal/abnormal . [facility] SystemLbmqhawFLBZBQKKSR8465-52-63 05:06:00 Test Item Value Reference Range Interpretation Comments Eosinophils # (test code 0.1 See_Comment [A utomated message] The = Eosinophils #) system whic h generated this result tra nsmitted reference range : <=0.5. The reference r fernando was not used to int erpret this result as normal/abnormal . [facility] [id number] 05:06:00 Test Item Value Reference Range Interpretation Comments Lymphocytes # (test code = Lymphocytes 1.6 1.0-5.5 #) [facility] SystemGdokixiUMLQHJPRHR8188-19-28 05:06:00 Test Item Value Reference Range Interpretation Comments Segs-Bands # (test code = Segs-Bands #) 4.8 1.5-8.1 [facility] SystemPuvbpuwPWAXBANWCX1109-33-45 05:06:00 Test Item Value Reference Range Interpretation Comments Basophils (test code = 0.1 See_Comment [Aut omated message] The Basophils) system which ge nerated this result tra nsmitted reference range : <=1.0. The reference r fernando was not used to int erpret this result as normal/abnormal . [facility] S[id number] 05:06:00 Test Item Value Reference Range Interpretation Comments Monocytes (test code = Monocytes) 12.4 2.0-12.0 [facility]YMNAGUEUO5686-25-69 05:06:00 Test Item Value Reference Range Interpretation Comments Eosinophils (test code = 0.8 See_Comment [A utomated message] The Eosinophils) system which ge nerated this result tra nsmitted reference range : <=4.0. The reference r efrnando was not used to int erpret this result as normal/abnormal . [id number] 05:06:00 Test Item Value Reference Range Interpretation Comments Lymphocytes (test code = Lymphocytes) 21.4 20.0-40.0 [facility] MoundKvjknveQJZCLTNZFK5201-43-55 05:06:00 Test Item Value Reference Range Interpretation Comments Segs (test code = Segs) 65.3 45.0-75.0 [facility] MoundLandmark Games And ToysPARATHYROID [id number] 05:06:00 Test Item Value Reference Range Interpretation Comments Ca Ion WB (test code = Ca Ion WB) 1.14 1.05-1.25 [facility] MoundLandmark Games And ToysPARATHYROID [id number] 05:06:00 Test Item Value Reference Range Interpretation Comments Ca Norm WB (test code = Ca Norm WB) 1.14 1.05-1.25 [facility] [employer] [id number] 21:23:00 Test Item Value Reference Range Interpretation Comments Lactic Acid Lvl (test code = Lactic 1.7 0.5-2.2 Acid Lvl) [facility] DocalyticsCHEM [id number] 15:19:00 Test Item Value Reference Range Interpretation Comments Procalcitonin Lvl (test no gt See_Comment [Au tomated message] code = Procalcitonin Lvl) Th e system which generated this result transmitted ref erence range: <=0.10. The reference range was not used to interpr et this result as normal/abnormal . [facility]oundLandmark Games And ToysBACTERIAL - [id number] 15:03:00 Test Item Value Reference Range Interpretation Comments MRSA by PCR (test Negative (02/06/18 10:03 code = MRSA by PCR) AM) [facility] MoundLandmark Games And ToysCHEM [id number] 15:03:00 Test Item Value Reference Range Interpretation Comments Lactic Acid Lvl (test code = Lactic 2.1 0.5-2.2 Acid Lvl) [facility] [employer]2018-05-29 10:01:00 Test Item Value Reference Range Interpretation Comments Troponin-I (test code no gt See_Comment [Auto mated message] The = Troponin-I) system which g enerated this result transmit timur reference range : <=0.40. The reference r fernando was not used to interpr et this result as jasmyne l/abnormal. [facility]oundGrand CruTEN [facility] [id number] 10:01:00 Test Item Value Reference Range Interpretation Comments Troponin-T (test code no gt See_Comment [Auto mated message] The = Troponin-T) system which g enerated this result transmit timur reference range : <=0.100. The reference r fernando was not used to interpr et this result as jasmyne l/abnormal. [facility] F[facility] MoundAdeptence [id number] 10:01:00 Test Item Value Reference Range Interpretation Comments Total CK (test code = Total CK) 188 12-191 [facility] MoundAdeptence [id number] 10:01:00 Test Item Value Reference Range Interpretation Comments CK MB Index (test 1.2 1 See_Comment [Automate d message] The code = CK MB Index) system w [employer] generated this result transmit timur reference range : <=2.5. The reference range was not used to interpr et this result as jasmyne l/abnormal. [facility] MoundAdeptence [id number] 10:01:00 Test Item Value Reference Range Interpretation Comments CK MB (test code = CK MB) 2.3 0.5-3.6 [facility] [employer] [id number] 06:28:00 Test Item Value Reference Range Interpretation Comments Ca Norm WB (test code = Ca Norm WB) 1.00 1.05-1.25 [facility] Everyone CountsROID [id number] 06:28:00 Test Item Value Reference Range Interpretation Comments Ca Ion WB (test code = Ca Ion WB) 0.99 1.05-1.25 [facility] [employer]2018-05-29 05:16:00 Test Item Value Reference Range Interpretation Comments CK MB Index (test 1.5 1 See_Comment [Automate d message] The code = CK MB Index) system w [employer] generated this result transmit timur reference range : <=2.5. The reference range was not used to interpr et this result as jasmyne l/abnormal. [facility] [employer]2018-05-29 05:16:00 Test Item Value Reference Range Interpretation Comments CK MB (test code = CK MB) 1.4 0.5-3.6 [facility] [employer]2018-05-29 05:16:00 Test Item Value Reference Range Interpretation Comments Troponin-T (test code no gt See_Comment [Auto mated message] The = Troponin-T) system which g enerated this result transmit timur reference range : <=0.100. The reference r fernando was not used to interpr et this result as jasmyne l/abnormal. [facility] [employer]2018-05-29 05:16:00 Test Item Value Reference Range Interpretation Comments Troponin-I (test code no gt See_Comment [Auto mated message] The = Troponin-I) system which g enerated this result transmit timur reference range : <=0.40. The reference r fernando was not used to interpr et this result as jasmyne l/abnormal. [facility] [employer]2018-05-29 05:16:00 Test Item Value Reference Range Interpretation Comments Total CK (test code = Total CK) 94 12-191 [facility] [employer] [id number] 05:16:00 Test Item Value Reference Range Interpretation Comments Albumin Lvl (test code = Albumin Lvl) 3.2 3.5-5.0 [facility] [employer]2018-05-29 05:16:00 Test Item Value Reference Range Interpretation Comments B/C Ratio (test code = B/C Ratio) 14 1 6-25 [facility] [employer]2018-05-29 05:16:00 Test Item Value Reference Range Interpretation Comments Total Protein (test code = Total 6.4 6.4-8.4 Protein) [facility] [employer]2018-05-29 05:16:00 Test Item Value Reference Range Interpretation Comments Globulin (test code = Globulin) 3.2 2.7-4.2 [facility] [employer]2018-05-29 05:16:00 Test Item Value Reference Range Interpretation Comments ALT (test code = ALT) 16 See_Comment [Auto mated message] The system which ge nerated this result transmit timur reference range : <=65. The reference range was not used to interpr et this result as jasmyne l/abnormal. [facility]2018-05-29 05:16:00 Test Item Value Reference Range Interpretation Comments A/G Ratio (test code = A/G Ratio) 1.0 1 0.7-1.6 [place] [id number] 05:16:00 Test Item Value Reference Range Interpretation Comments Bili Total (test code = Bili Total) 0.3 0.2-1.3 [place] [id number] 05:16:00 Test Item Value Reference Range Interpretation Comments Alk Phos (test code = Alk Phos) 67 39-136 [place] [id number] 05:16:00 Test Item Value Reference Range Interpretation Comments AST (test code = AST) 14 See_Comment [Auto mated message] The system which ge nerated this result transmit timur reference range : <=37. The reference range was not used to interpr et this result as jasmyne l/abnormal. [facility]2018-05-29 05:16:00 Test Item Value Reference Range Interpretation Comments Magnesium Lvl (test code = Magnesium 1.6 1.8-2.4 Lvl) [facility]2018-05-29 05:16:00 Test Item Value Reference Range Interpretation Comments Phosphorus (test code = Phosphorus) 2.1 2.5-4.5 [facility] Syst[id number] 05:16:00 Test Item Value Reference Range Interpretation Comments Estimated % Lysis Rapid 0.9 See_Comment [Au tomated message] The (test code = Estimated syste m which generated % Lysis Rapid) this result t ransmitted reference range : <=7.5. The reference r fernando was not used to int erpret this result as normal/abnormal . [facility] [id number] 05:16:00 Test Item Value Reference Range Interpretation Comments G-value Rapid (test code = G-value 11.7 5.0-11.6 Rapid) [facility] [id number] 05:16:00 Test Item Value Reference Range Interpretation Comments K-time Rapid (test code = K-time 0.8 min 0.6-2.3 Rapid) [facility] SystemBnokhkkIYCYPJCBAJ6458-04-89 05:16:00 Test Item Value Reference Range Interpretation Comments Angle Rapid (test code = Angle 76 degrees 64-80 Rapid) [facility] SystemWfbwdwpNCGWDTJILJ2271-01-22 05:16:00 Test Item Value Reference Range Interpretation Comments Max Amplitude Rapid (test code = Max 70 mm 52-71 Amplitude Rapid) [facility] SystemHzyanfdKFVGSNNMPN4479-15-27 05:16:00 Test Item Value Reference Range Interpretation Comments ACT (TEG) Rapid (test code = ACT (TEG) 121 s 86-118 Rapid) [facility] SystemXwsiihvLYHFITPSGC4582-32-86 05:16:00 Test Item Value Reference Range Interpretation Comments Split Point Rapid (test code = Split 0.4 min Point Rapid) [facility] SystemCdrpwzwTPEMXEMYAY5695-24-98 05:16:00 Test Item Value Reference Range Interpretation Comments R-time Rapid (test code = R-time 0.8 min 0.4-0.7 Rapid) [facility] SystemQyysrbtBLVZTCTCKQ6090-34-21 05:16:00 Test Item Value Reference Range Interpretation Comments INR (test code = INR) 1.14 1 0.85-1.17 [facility] SystemPloecqnTMKJSMOPWG2255-47-24 05:16:00 Test Item Value Reference Range Interpretation Comments PTT (test code = PTT) 46.9 s 22.9-35.8 [facility] SystemAsohukrFJYSRIHODW0086-24-04 05:16:00 Test Item Value Reference Range Interpretation Comments PT (test code = PT) 14.6 s 12.0-14.7 [facility] SystemFmnfnebNERYIFKWYX4392-70-99 01:34:00 Test Item Value Reference Range Interpretation Comments Plav Effect Plt (test code = Plav 220 Effect Plt) [facility] SystemQxwwaqzQVKWKHDOJQ2102-49-75 01:34:00 Test Item Value Reference Range Interpretation Comments ASA Effect Plt (test code = ASA Effect 540 Plt) [facility] [id number] 01:29:00 Test Item Value Reference Range Interpretation Comments CK MB (test code = CK MB) 0.9 0.5-3.6 [facility] [id number] 01:29:00 Test Item Value Reference Range Interpretation Comments CK MB Index (test 1.2 1 See_Comment [Automate d message] The code = CK MB Index) system w [facility] generated this result transmit timur reference range : <=2.5. The reference range was not used to interpr et this result as jasmyne l/abnormal. [facility]CARDI[facility] [id number] 01:29:00 Test Item Value Reference Range Interpretation Comments Troponin-T (test code no gt See_Comment [Auto mated message] The = Troponin-T) system which g enerated this result transmit timur reference range : <=0.100. The reference r fernando was not used to interpr et this result as jasmyne l/abnormal. [facility] [id number] 01:29:00 Test Item Value Reference Range Interpretation Comments Troponin-I (test code no gt See_Comment [Auto mated message] The = Troponin-I) system which g enerated this result transmit timur reference range : <=0.40. The reference r fernando was not used to interpr et this result as jasmyne l/abnormal. [facility]CAR[facility] [id number] 01:29:00 Test Item Value Reference Range Interpretation Comments Total CK (test code = Total CK) 77 12-191 [facility]annCHEM [id number] 01:29:00 Test Item Value Reference Range Interpretation Comments Lactic Acid Lvl (test code = Lactic 1.6 0.5-2.2 Acid Lvl) [facility]annCHE[facility] [id number] 01:29:00 Test Item Value Reference Range Interpretation Comments Osmolality (test code = Osmolality) 273 280-[address] [facility] AND [id number] 01:29:00 Test Item Value Reference Range Interpretation Comments UA Sq Epi (test code = UA Sq Epi) None Seen [facility] AND [id number] 01:29:00 Test Item Value Reference Range Interpretation Comments UA Urobilinogen (test code = UA <=1.0 mg/dL 0.1-1.0 Urobilinogen) [facility] AND [id number] 01:29:00 Test Item Value Reference Range Interpretation Comments UA Color (test code = Light Yellow UA Color) *NA*(02/05/18 8:29 PM) [facility] AND [id number] 01:29:00 Test Item Value Reference Range Interpretation Comments UA Spec Grav (test code = UA Spec 1.010 1 Grav) [facility] AND [id number] 01:29:00 Test Item Value Reference Range Interpretation Comments UA pH (test code = UA pH) 7.5 1 5.0-8.[address] [facility] AND [id number] 01:29:00 Test Item Value Reference Range Interpretation Comments UA Turbidity (test code Slight *ABN*(02/05/18 = UA Turbidity) 8:29 PM) [facility] AND [id number] 01:29:00 Test Item Value Reference Range Interpretation Comments UA Glucose (test code = UA Glucose) 300 mg/dL [facility] AND [id number] 01:29:00 Test Item Value Reference Range Interpretation Comments UA Protein (test code = UA Protein) 100 mg/dL [facility] AND [id number] 01:29:00 Test Item Value Reference Range Interpretation Comments UA Ketones (test code = UA Ketones) 20 mg/dL [facility] AND [id number] 01:29:00 Test Item Value Reference Range Interpretation Comments UA Nitrite (test code Negative (02/05/18 8:29 = UA Nitrite) PM) [facility] AND [id number] 01:29:00 Test Item Value Reference Range Interpretation Comments UA WBC (test code = 1 See_Comment [Automa timur message] The UA WBC) system which ge nerated this result transmit timur reference range : <=5. The reference range was not used to interpr et this result as jasmyne l/abnormal. [facility] AND [id number] 01:29:00 Test Item Value Reference Range Interpretation Comments UA Leuk Est (test Negative (02/05/18 8:29 code = UA Leuk Est) PM) [facility] AND [id number] 01:29:00 Test Item Value Reference Range Interpretation Comments UA RBC (test code = 3 See_Comment [Automa timur message] The UA RBC) system which ge nerated this result transmit timur reference range : <=2. The reference range was not used to interpr et this result as jasmyne l/abnormal. [facility] AND [id number] 01:29:00 Test Item Value Reference Range Interpretation Comments UA Amorph Aliya (test code = UA Few /HPF Amorph Aliya) [facility] AND [id number] 01:29:00 Test Item Value Reference Range Interpretation Comments UA Mucus (test code = UA Mucus) Few /LPF [facility] AND [id number] 01:29:00 Test Item Value Reference Range Interpretation Comments UA Blood (test code = Negative (02/05/18 8:29 UA Blood) PM) [facility] AND [id number] 01:29:00 Test Item Value Reference Range Interpretation Comments UA Bili (test code = Negative *NA*(02/05/18 UA Bili) 8:29 PM) [facility] [id number] 01:29:00 Test Item Value Reference Range Interpretation Comments U Osmolality (test code = U Osmolality) 477 300-[address] [facility] [id number] 01:29:00 Test Item Value Reference Range Interpretation Comments U Sodium (test code = U Sodium) 123 [facility] [id number] 01:25:00 Test Item Value Reference Range Interpretation Comments FFP product (test code Product available = FFP product) (02/05/18 8:25 PM) [facility] [id number] 23:04:00 Test Item Value Reference Range Interpretation Comments ACT (TEG) Rapid (test code = ACT (TEG) 144 s 86-118 Rapid) [facility] [id number] 23:04:00 Test Item Value Reference Range Interpretation Comments Split Point Rapid (test code = Split 0.7 min Point Rapid) [facility] SystemJegtbheAMYMVQVBAM9037-04-64 23:04:00 Test Item Value Reference Range Interpretation Comments K-time Rapid (test code = K-time 0.9 min 0.6-2.3 Rapid) [facility] [id number] 23:04:00 Test Item Value Reference Range Interpretation Comments R-time Rapid (test code = R-time 1.0 min 0.4-0.7 Rapid) [facility] SystemZvauiupRGHKZJXNYE7112-30-05 23:04:00 Test Item Value Reference Range Interpretation Comments Max Amplitude Rapid (test code = Max 75 mm 52-71 Amplitude Rapid) [facility] SystemYsdjedgEWQPKNWEQI8565-57-58 23:04:00 Test Item Value Reference Range Interpretation Comments Angle Rapid (test code = Angle 76 degrees 64-80 Rapid) [facility] [id number] 23:04:00 Test Item Value Reference Range Interpretation Comments G-value Rapid (test code = G-value 14.8 5.0-11.6 Rapid) [id number] 23:04:00 Test Item Value Reference Range Interpretation Comments Estimated % Lysis Rapid 0.0 See_Comment [Au tomated message] The (test code = Estimated syste m which generated % Lysis Rapid) this result t ransmitted reference range : <=7.5. The reference r fernando was not used to int erpret this result as normal/abnormal . [facility]oundProject [employer] [id number] 23:00:00 Test Item Value Reference Range Interpretation Comments ABO/Rh (test code = ABO/Rh) A POS [facility] [employer] [id number] 23:00:00 Test Item Value Reference Range Interpretation Comments Antibody Scrn (test Negative (02/05/18 6:00 code = Antibody Scrn) PM) [facility]
[2023-01-26 03:06] LABS: Arterial Blood Carboxyhemoglob 1.1 % (0-1.5); Blood Gas Oxyhemoglobin 91.9 % (94-97); Blood O2 Saturation 94.2 % (92-98.5)
[2023-01-26 03:15] LABS: Absolute Lymphocytes (CBC) 2.4 K/uL (0.7-4.9); Hematocrit 32.4 % (36.0-45.0); Lymphocytes % 46.4 % (15.3-44.8); RBC Red Blood Cell Count 3.77 M/uL (3.86-4.86)
[2023-01-26 03:35] LABS: Protime INR 0.99
[2023-01-26 04:09] LABS: Albumin 3.2 g/dL (3.4-5.0); Bilirubin Total 0.3 mg/dL (0.2-1.0); Protein, Total 6.4 g/dL (6.4-8.2)
[2023-01-26 04:10] LABS: Potassium 3.4 mEq/L (3.5-5.1)
[2023-01-26 05:29] LABS: Specific Gravity 1.007 (1.005-1.030); Transitional Epithelial <5 /HPF (None Seen); Urine Bacteria None Seen /HPF (<20); Urine Bilirubin NEGATIVE (Negative); Urine Blood Negative (Negative); Urine Clarity Clear (Clear); Urine Color Colorless (Yellow); Urine Glucose TRACE (Negative); Urine Mucus Slight /HPF (None Seen); Urine Protein NEGATIVE (Negative); Urine RBC None Seen /HPF (None Seen); Urine Urobilinogen Normal (Normal)
--- NOTE | 2023-01-26 05:36 | EKG ---
Test Date: 2023-01-26 Test Time: 02:53:57 Polysomnographic Technician: RV MEASUREMENT RESULTS: Intervals: Rate: 89 NE: 200 QRSD: 136 QT: 466 QTc: 566 [place]: P: 67 NE: 200 QRS: 43 T: 8 INTERPRETIVE STATEMENTS: Normal sinus rhythm with sinus arrhythmia Right bundle branch block Abnormal ECG Compared to ECG 01/14/2023 11:15:57 Atrial-paced complex(es) or rhythm no longer present Ventricular-paced complex(es) or rhythm no longer present Electronically Signed On 01-26-23 05:36:20 CDT by Chintan Lopez
--- NOTE | 2023-01-26 05:39 | ER ---
Nurse's Notes [facility] Name: Skylar Grossman Age: 87 yrs Sex: Female : 1935 Arrival Date: 01/26/2023 Time: 02:42 Bed 14 Private MD: Diagnosis: Altered Mental Status Presentation: 01/26 02:53 Chief complaint: EMS states: called out for lethargic pt. family reports pt last known as6 normal was 2100. normally when family checks on pt in the night pt is able to wake up and respond appropriately but tonight pt seemed more altered than normal. Coronavirus screen: At this time, the client does not indicate any symptoms associated with coronavirus-19. Ebola Screen: No symptoms or risks identified at this time. Initial Sepsis Screen: Does the patient meet any 2 criteria? No. Patient's initial sepsis screen is negative. Does the patient have a suspected source of infection? No. Patient's initial sepsis screen is negative. Risk Assessment: Do you want to hurt yourself or someone else? Unable to obtain. Onset of symptoms was January 25, 2023 at 21:00. 02:53 Acuity: FARIDA 2 as6 02:53 Method Of Arrival: EMS: [facility] as6 06:54 Note pt up for discharge sister reports will pay for cab pt sleeping. kl Historical: - Allergies: 02:53 Codeine (Upset stomach); as6 02:53 meperidine HCl; as6 02:53 Morphine; as6 - PMHx: 02:53 Cardiac pacemaker in situ; CVA; Hypertensive disorder; Hypercholesterolemia; GERD; as6 Depression; Dementia; Diabetes - IDDM; - PSHx: 02:53 Appendectomy; Cholecystectomy; Total abdominal hysterectomy; as6 - Immunization history:: Adult Immunizations unknown. - Social history:: Smoking status: unknown. Screenin:18 [facility] ED Fall Risk Assessment (Adult) History of falling in the last 3 months, kl including since admission No falls in past 3 months (0 pts) Confusion or Disorientation Yes (5 pts) Intoxicated or Sedated No (0 pts) Impaired Gait Yes (1 pt) Mobility Assist Device Used No (0 pt) Altered Elimination No (0 pt) Score/Fall Risk Level 3 or more points = High Risk Oriented to surroundings, Maintained a safe environment, Implemented a Fall Risk Plan of Care, Offered frequent toileting (1:1 observation). Abuse screen: Denies threats or abuse. Nutritional screening: No deficits noted. Tuberculosis screening: No symptoms or risk factors identified. Assessment: 03:16 General: Appears in no apparent distress. comfortable, Behavior is restless. Pain: kl Denies pain. Neuro: Level of Consciousness is obeys commands, Oriented to person, place, Speech is normal, Facial symmetry appears normal. Cardiovascular: No deficits noted. Denies chest pain. Respiratory: No deficits noted. GI: No deficits noted. No signs and/or symptoms were reported involving the gastrointestinal system. : No deficits noted. No signs and/or symptoms were reported regarding the genitourinary system. 04:33 Reassessment: Patient appears in no apparent distress at this time. Patient denies pain kl at this time. pt assisted to BSC urine obtained tolerated well. 06:54 Reassessment: Patient appears in no apparent distress at this time. Patient and/or kl family updated on plan of care and expected duration. Pain level reassessed. Vital Signs: 02:52 BP 155 / 86; Pulse 82; Resp 18 S; Temp 97(A); Pulse Ox 95% on R/A; Weight 71.67 kg (M); as6 04:31 BP 155 / 96; Pulse 92; Resp 18; Temp 98.7; Pulse Ox 96% on R/A; kl 06:55 BP 148 / 78; Pulse 81; Resp 17; Pulse Ox 94% ; kl ED Course: 02:47 Patient arrived in ED. sb4 02:49 Christian Burton MD is Attending Physician. sp3 02:52 Arm band placed on right wrist. as6 02:55 Triage completed. as6 02:56 Patient has correct armband on for positive identification. Placed in gown. Bed in low as6 position. Call light in reach. Side rails up X2. Client placed on continuous cardiac and pulse oximetry monitoring. NIBP monitoring applied. 03:08 CBC with Diff Sent. kl 03:08 CMP Sent. kl 03:08 Lactate w/ 2H reflex if indic. Sent. kl 03:08 Ptt, Activated Sent. kl 03:08 Protime (+inr) Sent. kl 03:13 Chest Single View XRAY In Process Unspecified. EDMS 03:19 CBC with Diff Sent. kl 03:19 CMP Sent. kl 03:19 Lactate w/ 2H reflex if indic. Sent. kl 03:19 Protime (+inr) Sent. kl 03:19 Ptt, Activated Sent. kl 03:39 CT Head Brain wo Cont In Process Unspecified. EDMS 04:34 Blood Culture Adult (2) Sent. kl 04:34 Urinalysis w/ reflexes Sent. kl 04:58 No apparent distress. Appears to be sleeping. kl 06:54 No apparent distress. Appears to be sleeping. kl 07:10 Annamarie Christie, RN is Primary Nurse. ko1 07:14 No provider procedures requiring assistance completed. ko1 07:54 IV discontinued, intact, bleeding controlled, No redness/swelling at site. Pressure ko1 dressing applied. Administered Medications: 03:35 Drug: NS 0.9% IV 1000 ml Route: IV; Rate: 1 bolus; Site: left hand; kl 04:34 Follow up: IV Status: Completed infusion; IV Intake: 1000ml kl Medication: 07:14 VIS not applicable for this client. ko1 Intake: 04:34 IV: 1000ml; Total: 1000ml. kl Outcome: 05:38 Discharge ordered by . sp3 07:54 Discharged to home via wheelchair, with family. ko1 07:54 Condition: stable 07:54 Discharge instructions given to patient, family, Instructed on discharge instructions, follow up and referral plans. Demonstrated understanding of instructions, follow-up care, medications. 08:06 Patient left the ED. kc6 Signatures: Dispatcher [employer] Suzi Cohn RN RN kl Patel, Setul, MD MD sp3 Neto Andujar RN RN as6 Luz Mendoza RN RN kc6 Annamarie Christie, JOSE EDUARDO RN ko1 Cathi Robert PAJonah PAJonah sb4 Corrections: (The following items were deleted from the chart) 07:14 07:13 Reassessment: ko1 ko1
--- NOTE | 2023-01-26 05:39 | EDPHYS ---
Physician Documentation [facility] Name: Skylar Grossman Age: 87 yrs Sex: Female : 1935 Arrival Date: 01/26/2023 Time: 02:42 Bed 14 Private MD: ED Physician Christian Burton HPI: 01/26 03:21 This 87 yrs old Female presents to ER via EMS with complaints of altered mental status. sp3 03:21 87-year-old female with extensive past medical history including CVA hypertension sp3 hyperlipidemia multiple prior admissions for altered mental status now presents via EMS for altered mental status. Per EMS, patient's family tried to check on her in the middle of the night and were unable to arouse her and she remained altered and so they activated EMS. Patient reacts to pain only and therefore history and physical limited. No reports of fever or difficulty breathing from EMS.. Historical: - Allergies: 02:53 Codeine (Upset stomach); as6 02:53 meperidine HCl; as6 02:53 Morphine; as6 - PMHx: 02:53 Cardiac pacemaker in situ; CVA; Hypertensive disorder; Hypercholesterolemia; GERD; as6 Depression; Dementia; Diabetes - IDDM; - PSHx: 02:53 Appendectomy; Cholecystectomy; Total abdominal hysterectomy; as6 - Immunization history:: Adult Immunizations unknown. - Social history:: Smoking status: unknown. ROS: 03:22 Unable to obtain ROS due to altered mental status. sp3 Exam: 03:23 Head/Face: Normocephalic, atraumatic. Eyes: Pupils equal round and reactive to light, sp3 extra-ocular motions intact. Lids and lashes normal. Conjunctiva and sclera are non-icteric and not injected. Cornea within normal limits. Periorbital areas with no swelling, redness, or edema. Neck: Trachea midline, no thyromegaly or masses palpated, and no cervical lymphadenopathy. Supple, full range of motion without nuchal rigidity, or vertebral point tenderness. No Meningismus. Chest/axilla: Normal chest wall appearance and motion. Nontender with no deformity. No lesions are appreciated. Cardiovascular: Regular rate and rhythm with a normal S1 and S2. No gallops, murmurs, or rubs. Normal PMI, no JVD. No pulse deficits. Respiratory: Lungs have equal breath sounds bilaterally, clear to auscultation and percussion. No rales, rhonchi or wheezes noted. No increased work of breathing, no retractions or nasal flaring. 03:23 Neuro: Patient has equal round pupils and reactive to light. Patient withdraws to pain and is arousable with sternal rub to nonspecific verbal response. Patient appears to be asleep but is not fully arousable to awake status. Patient does take Seroquel prior to bedtime.. Vital Signs: 02:52 BP 155 / 86; Pulse 82; Resp 18 S; Temp 97(A); Pulse Ox 95% on R/A; Weight 71.67 kg (M); as6 04:31 BP 155 / 96; Pulse 92; Resp 18; Temp 98.7; Pulse Ox 96% on R/A; kl 06:55 BP 148 / 78; Pulse 81; Resp 17; Pulse Ox 94% ; kl MDM: 02:49 Patient medically screened. sp3 03:24 Data reviewed: vital signs, nurses notes, EMS record, old medical records, lab test sp3 result(s), EKG, radiologic studies. ED course: 87-year-old female patient of Dr. Angel now with altered mental status recurrent in nature. History and physical limited secondary to her current state. We will obtain laboratory values, urine analysis, blood cultures, chest x-ray, CT scan of the head and administer supportive care right now. ABG demonstrates no significant abnormalities. Blood sugar is 250. Inpatient team should consider care home placement once discussed with family. This is her third visit in 3 weeks.. 05:37 ED course: Patient is more arousable now work-up is negative. Discussed with sister who sp3 will be picking her up.. 01/26 02:50 Order name: Blood Culture Adult (2) sp3 01/26 02:50 Order name: CBC with Diff; Complete Time: 03:45 sp3 01/26 02:50 Order name: CMP; Complete Time: 04:19 sp3 01/26 02:50 Order name: Lactate w/ 2H reflex if indic.; Complete Time: 04:19 sp3 01/26 02:50 Order name: Protime (+inr); Complete Time: 03:45 sp3 01/26 02:50 Order name: Ptt, Activated; Complete Time: 03:45 3 01/26 02:50 Order name: Urinalysis w/ reflexes; Complete Time: 05:37 3 01/26 02:50 Order name: ABG: VBG!!!!!; Complete Time: 03:45 3 01/26 02:50 Order name: Chest Single View XRAY 3 01/26 02:57 Order name: CT Head Brain wo Cont as6 01/26 02:50 Order name: EKG; Complete Time: 02:51 3 01/26 02:50 Order name: Accucheck; Complete Time: 03:08 3 01/26 02:50 Order name: Cardiac monitoring; Complete Time: 02:56 3 01/26 02:50 Order name: EKG - Nurse/Tech; Complete Time: 02:56 3 01/26 02:50 Order name: IV Saline Lock - Large Bore; Complete Time: 03:08 3 01/26 02:50 Order name: Labs collected and sent; Complete Time: 03:08 3 01/26 02:50 Order name: O2 Per Protocol; Complete Time: 02:56 3 01/26 02:50 Order name: O2 Sat Monitoring; Complete Time: 02:56 3 01/26 02:50 Order name: Vital Signs; Complete Time: 02:56 3 01/26 02:50 Order name: NPO; Complete Time: 02:56 3 01/26 02:50 Order name: Rectal Temp; Complete Time: 04:34 sp3 Administered Medications: 03:35 Drug: NS 0.9% IV 1000 ml Route: IV; Rate: 1 bolus; Site: left hand; kl 04:34 Follow up: IV Status: Completed infusion; IV Intake: 1000ml kl Disposition Summary: 01/26/23 05:38 Discharge Ordered Location: Home sp3 Condition: Stable sp3 Diagnosis - Altered Mental Status sp3 Followup: sp3 - With: Private Physician - When: Upon discharge from the Emergency Department - Reason: Recheck today's complaints, Continuance of care Discharge Instructions: - Discharge Summary Sheet sp3 - Quality Sleep Information, Adult sp3 Forms: - Medication Reconciliation Form sp3 - Thank You Letter sp3 - Antibiotic Education sp3 - Prescription Opioid Use sp3 Signatures: Dispatcher [employer] EDSuzi Chawla RN RN kl Christian Burton MD MD sp3 Neto Andujar RN RN as6 Corrections: (The following items were deleted from the chart) 04:34 02:50 Laurita babcock
[2023-01-26 08:13] VITALS: TEMP 98.7
[2023-01-26 08:14] VITALS: BP 148/78; O2SAT 94
--- NOTE | 2023-01-26 17:59 | RAD REPORT ---
EXAM DESCRIPTION: CT - Head Brain Wo Kaylee - 01/26/2023 5:13 am CLINICAL HISTORY: The patient is 87 years old and is Female; Confused;Mental status change TECHNIQUE: Axial computed tomography images of the head/brain without intravenous contrast. Sagitt al and coronal reformatted images were created and reviewed. This CT exam was performed using one o r more of the following dose reduction techniques: automated exposure control, adjustment of the mA and/or kV according to patient size, and/or use of iterative reconstruction technique. COMPARISON: January 21, 2023. FINDINGS: Brain: Mild nonspecific white matter changes likely related to chronic microvascular isc hemic disease. Mild cerebral atrophy. No hemorrhage. Ventricles: Unremarkable. No ventriculomegaly. Bones/joints: Postsurgical changes related to a right frontal parietal craniotomies. No acute fracture. Soft tissues: Unremarkable. Sinuses: Unremarkable as visualized. Mastoid air cells: Unremarkable as visualized. No mastoid effusion. IMPRESSION: No acute intracranial abnormality. Electronically signed by: Dejon Claudio MD 01/26/2023 5:00 AM CDT Due to temporary technical issues with the PACS/Fluency reporting system, reports are being signed by the in house radiologists without review as a courtesy to insure prompt reporting. The interpreting radiologist is fully responsible for the content of the report.
--- NOTE | 2023-01-26 18:50 | RAD REPORT ---
EXAM DESCRIPTION: RAD - Chest Single View - 01/26/2023 3:11 am CLINICAL HISTORY: Altered Mental Status TECHNIQUE: Frontal view of the chest. COMPARISON: XR Chest dated 07/25/2022 FINDINGS: Lungs: Coarsened interstitial markings. No focal consolidation. Pleural space: Unremarkable. No pneumothorax. Heart: The cardiac silhouette is enlarged, more pronounced on the current study. Mediastinum: Unremarkable. Bones/joints: Loss of the subacromial interspace on the left compatible with chronic rotator cuff t ear. Vasculature: Thoracic aortic atherosclerosis and tortuosity. Tubes, lines and devices: Interval placement of a left chest wall dual-lead pacer. IMPRESSION: No acute disease. Electronically signed by: Chandu Pina MD 01/26/2023 3:44 AM CDT Due to temporary technical issues with the PACS/Fluency reporting system, reports are being signed by the in house radiologists without review as a courtesy to insure prompt reporting. The interpreting radiologist is fully responsible for the content of the report.
== END 2023-01-26 08:06 | disposition home or self-care (01) ==
LOC: ER 02:42
DX: R41.82 Altered mental status, unspecified (principal); I10 Essential (primary) hypertension; E11.9 Type 2 diabetes mellitus without complications; F03.90 Unspecified dementia, unspecified severity, without behavioral disturbance, psychotic disturbance, mood disturbance, and anxiety; Z95.0 Presence of cardiac pacemaker; Z86.73 Personal history of transient ischemic attack (TIA), and cerebral infarction without residual deficits; Z88.5 Allergy status to narcotic agent; Z88.8 Allergy status to other drugs, medicaments and biological substances
CPT/HCPCS: 36415; 70450; 71045; 80053; 81001; 82805; 83605; 85025; 85610; 85730; 87040; 93005; 96360; 99284

== ENCOUNTER 2023-02-07 13:30 | Emergency (ER) | payer OTHER ==
--- OUTSIDE RECORDS SUMMARY | 2023-02-07 13:52 | XMS REPORT | Continuity of Care Document ---
:1935 Author Organization [facility] t Address [address] [place] [address] Care Team Providers Name Role Phone No MD, Pcp [facility] Primary Care Physician Unavailable JUAQUIN MCINTYRE Attending Clinician Unavailable HARINI BETANCOURT Attending Clinician Unavailable HARINI BETANCOURT Attending Clinician Unavailable GILBERT WINSTON Attending Clinician Unavailable Inez Hylton MD Attending Clinician INEZ HYLTON Attending Clinician Unavailable Doctor Unassigned, [place] Attending Clinician Unavailable JARVIS MILLIGAN Attending Clinician Unavailable Liza Zarco Attending Clinician Raul Rosen MD Attending Clinician Jarvis Milligan MD Attending Clinician CASSIUS PINK Attending Clinician Unavailable DAYAMI LOVE Attending Clinician Unavailable Dayami Whitman Attending Clinician [phone] Pob, [facility] Main Attending Clinician [...] Kevin Db Test Attending Clinician Unavailable Pavan ALLEY WORKER, Jud Attending Clinician JUD BROWNE Attending Clinician [...] Date S dianelys MEDICARE PART A AND [id number] 1998 B 00:00:00 MEDICARE A B [id number] 1998 00:00:00 [facility] [id number] 2019 HEALTHCARE 00:00:00 MEDICARE PART A \\T\\ [id number] 1998 B 00:00:00 Problems Condition Condition Condition Status Onset Resolution Last Treating Co mments Source Name Details Category Date Date Treatment Clinician Date Hyponatrem Hyponatrem Disease Recurre Univers ia ia nce 2-14 ity of 00:00: [place] [address] Medical Branch 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 2-14 it y of 00:00: [place] [address] Medical Branch At high At high Disease Active Univers risk for risk for 2-14 ity of seizures seizures 00:00: [place] [address] Medical Branch SUBDURAL SUBDURAL Diagnosis Active 2022-10-10 Memoria RADHA RADAH 10-10 12:36:00 l Active 00:00: Austyn 10/10/2022 00 [facility] TS Diagnosis Active 2022-10-11 Mem oria Active 10-10 12:26:00 l 10/10/2022 00:00: Jax sosa [facility] 00 [facility] Sick sinus Sick sinus Disease Active U nivers syndrome syndrome 10-07 ity of 00:00: 00 Medical Branch Symptomati Symptomati Disease Active U nivers c c 10-06 ity of bradycardi bradycardi [place] a 00 Medical [place] Sinus Sinus Disease Active Overview: Univer s pause pause 09-13 Formattin ity of 00:00: g of this note Medical might be Branch different from the original. Added automatic ally from request for surgery [id number] Syncope Syncope Disease Active Overview: Univ ers and and 09-13 Formattin ity of collapse collapse 00:00: g of this [place] 00 note Medical might be Branch different from the original. 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 U nivers [...] Added automatic ally from request for surgery [id number] Acute Acute Disease Active [facility] 7-16 [facility] athy athy [facility] Center Vasovagal Vasovagal Disease Active [facility] Colitis Colitis Disease Active 2019[facility] Syncope Syncope Disease Active 2019- [facility]: Medical 00 [place] FALL/ FALL/ Diagnosis Active 2018-02-19 Mem oria INTRAVENTR INTRAVENTR 02-18 04:32:00 l ICULAR ICULAR 00:00: [place] HEMORRHAGE HEMORRHAGE 00 VS SDH VS SDH Active 02/18/2018 [facility] SDH SDH Diagnosis Active 2018-02-26 Mem oria Active 02-18 12:06:00 l 02/18/2018 00:00: Jax sosa [address] ACUTE SDH ACUTE SDH Diagnosis Active 2018-02-16 Memoria Active 02-05 22:05:00 l 02/05/2018 00:00: Jax sosa [address] [facility] Pain in Pain in Disease Active [...] Disease Active Overview : Univers itis itis -26 Formattin ity of 00:00: g of this [place] 00 note Medical might be Branch different from the original. ICD10 Diagnosis Term Load Tester Utility Esophageal Esophageal Disease Active 2005-09 U nivers reflux reflux 1-15 ity of 00:00: [place] 00 Medical Branch Diabetic Diabetic Disease Active 2005-09 Overview: Un teo polyneurop polyneurop 1-15 Formattin ity of athy athy 00:00: g of this [place] 00 note Medical might be Branch different from the original. ICD10 Diagnosis Term Load Tester Utility Chronic Chronic Disease Active 2005-09 Univers depressive depressive 1-15 it y of personalit personalit 00:00[place] y disorder y disorder 00 Me dical Branch HLD HLD Disease Active 2005-09 Overview: Univer s (hyperlipi (hyperlipi 1-15 Formattin ity of demia) demia) 00:00: g of this [place] 00 note Medical might be Branch different from the original. 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 ICD10 Diagnosis Term Load Tester Utility Hypertensi Hypertens Problem Resolve 2018-10-22 Memoria ve sudeep d 15:27:05 l disorder, disorder, Herm roxanne systemic systemic arterial arterial (disorder) (disorder) Resolved Problem 10/22/2018 [facility] NONTRAUMAT NONTRAUMA Diagnosis Active 2018-02-16 Memoria IC ACUTE TIC ACUTE 22:05:00 l SUBDURAL SUBDURAL Jax n HEMORRHAGE HEMORRHAGE Active [facility] NONTRAUMAT Diagnosis Active 2018-02-26 Memoria IC CHRONIC NONTRAUMAT 12:06:00 l SUBDURAL IC CHRONIC Herm roxanne HEMORRHAGE SUBDURAL HEMORRHAGE Active [facility] FALL FALL Diagnosis Active 2018-02-19 Mem oria Active 03:11:00 l [facility] TRAUM TRAUM Diagnosis Active 2022-10-11 Mem oria SUBDR HEM SUBDR HEM 12:26:00 l WITH LOC WITH LOC Jax n STATUS STATUS UNKNOWN, UNKNOWN, Active [facility] Allergies, Adverse Reactions, Alerts Allergy Allergy Status [...] NE HCL INGREDI 3-10 ity of 00:00: [place] [address] Medical Branch Meperidi Propensi Active Unknown - REACTIONS Univers ne Hcl ty to See comments 3-10 UNKNOWN ity of adverse 00:00: [place] reaction 00 Medical s Branch CODEINE DRUG Active High Anaphylaxis 2006- Univ ers INGREDI 0-04 ity of 00:00: [place] 00 Medical Branch Codeine Propensi Active Anaphylaxis 2006- Un teo ty to 0-04 ity of adverse 00:00: [place] reaction 00 Medical s to Branch drug NO KNOWN Allergy Active SLEH ALLERGIE S codeine codeine Active Memoria l [place] Demerol Demerol Active Memoria HCl HCl l [place] Family History Family Member Diagnosis Comments Start Date Stop Date Source Natural father High blood pressure C HI [facility] Social History Social Habit Start Date Stop Date Quantity Comments Source History SDOH Social Unive rsity of Connections [facility] Med ical Together Branch History SDOH Social Unive rsity of Connections [facility] Medical Branch History SDOH Social [...] of Scarcity 00:00:00 00:00:00 [place] [facility] [place] Tobacco use and 2022-08-03 2022-08-03 Smokeless Universit y of exposure 00:00:00 00:00:00 tobacco non-user [place] Me dical Branch History SDOH 2020-03-27 2020-03-[address] [facility] Alcohol Frequency 00:00:00 00:00:00 [facility] Alcohol intake 2020-03-26 2020-03-[address] [facility] [facility] es 00:00:00 00:00:00 non-drinker of Medical Ce nter alcohol (finding) Social History 2018-02-19 2018-02-19 [facility] 11:13:34 11:13:34 Sex Assigned At [address] [facility] kes 00:00:00 00:00:00 [facility] Smoking Status Start Date Stop Date Source Never smoked tobacco [facility] Medications Ordered Filled Start Stop Current Ordering Indication Dosage Frequency Signature Comments Components Source Medication Medication Date Date Medication? Clinician (SIG) Name Name amLODIPine 2022- Yes 5mg Take 5 mg [place] 5 mg tablet 2-21 by mouth ity of 17:33: at [place] [address] bedtime. Medical Branch aspirin 81 2022-0 Yes 81mg Take 81 mg U nivers mg EC 2-21 by mouth ity of tablet 17:33: in the [place] [address] morning. Medical Branch lisinopriL 2022-0 Yes 20mg Take 20 mg U nivers 20 mg 2-21 by mouth ity of tablet 17:33: in the [place] [address] morning Medical and 20 mg Branch in the evening. metFORMIN 2022-0 Yes 500mg Take 500 Uni vers 500 mg 2-21 mg by ity of tablet 17:33: mouth in [place] [address] the Medical morning Branch and 500 mg in the evening. Take with meals. pantoprazol 2022-0 Yes 40mg Take 40 mg Univers e 2-21 by mouth ity of (PROTONIX) 17:33: in the [place] 20 mg EC 53 morning. Medical tablet Branch tamsulosin 2022-0 Yes Take by [facility] ers (FLOMAX) 2-21 mouth ity of 0.4 mg 24 17:33: daily. [place] hr capsule 53 Medical Branch FLUoxetine 2022-0 Yes 20mg Take 20 mg U nivers 20 mg 2-21 by mouth ity of capsule 17:33: in the [place] [address] morning. Medical Branch gabapentin 2022-0 Yes 300mg Take 300 Un teo 300 mg 2-21 mg by ity of capsule 17:33: mouth 2 [place] 53 (two) Medical times Branch daily as needed. memantine 2022-0 Yes 10mg Take 10 mg Un te[place] 10 mg 2-21 by mouth ity of tablet 17:33: in the [place] [address] morning Medical and 10 mg Branch in the evening. simvastatin 2022-0 Yes 20mg Take 20 mg Univers 20 mg 2-21 by mouth ity of tablet 17:33: at [place] [address] bedtime. Medical Branch amLODIPine 2022-0 Yes 5mg Take 5 mg Un teo 5 mg tablet 2-21 by mouth ity of 17:33: at [place] [address] bedtime. Medical Branch aspirin 81 2022-0 Yes 81mg Take 81 mg U nivers mg EC 2-21 by mouth ity of tablet 17:33: in the [place] [address] morning. Medical Branch lisinopriL 2022-0 Yes 20mg Take 20 mg U nivers 20 mg 2-21 by mouth ity of tablet 17:33: in the [place] [address] morning Medical and 20 mg Branch in the evening. metFORMIN 2022-0 Yes 500mg Take 500 Uni vers 500 mg 2-21 mg by ity of tablet 17:33: mouth in [place] 53 the Medical morning Branch and 500 mg in the evening. Take with meals. pantoprazol 2022-0 Yes 40mg Take 40 mg Univers e 2-21 by mouth ity of (PROTONIX) 17:33: in the [place] 20 mg EC 53 morning. Medical tablet Branch tamsulosin 2022-0 Yes Take by [facility] ers (FLOMAX) 2-21 mouth ity of 0.4 mg 24 17:33: daily. [place] hr capsule 53 Medical Branch FLUoxetine 2022-0 Yes 20mg Take 20 mg U nivers 20 mg 2-21 by mouth ity of capsule 17:33: in the [place] [address] morning. Medical Branch gabapentin 2023-0 Yes 300mg Take 300 Un te[place] 300 mg 2-21 mg by ity of capsule 17:33: mouth 2 [place] [address] (two) Medical times Branch daily as needed. memantine 2023-0 Yes 10mg Take 10 mg Un [place] 10 mg 2-21 by mouth ity of tablet 17:33: in the [place] [address] morning Medical and 10 mg Branch in the evening. simvastatin 2023-0 Yes 20mg Take 20 mg Univers 20 mg 2-21 by mouth ity of tablet 17:33: at [place] [address] bedtime. Medical Branch amLODIPine 2023-0 Yes 5mg Take 5 mg Un te[place] 5 mg tablet 2-21 by mouth ity of 17:33: at [place] [address] bedtime. Medical Branch aspirin 81 3-0 Yes 81mg Take 81 mg U nivers mg EC 2-21 by mouth ity of tablet 17:33: in the [place] [address] morning. Medical Branch lisinopriL 2022-0 Yes 20mg Take 20 mg U nivers 20 mg 2-21 by mouth ity of tablet 17:33: in the [place] [address] morning Medical and 20 mg Branch in the evening. metFORMIN 3-0 Yes 500mg Take 500 Uni vers 500 mg 2-21 mg by ity of tablet 17:33: mouth in [place] [address] the Medical morning Branch and 500 mg in the evening. Take with meals. pantoprazol 3-0 Yes 40mg Take 40 mg Univers e 2-21 by mouth ity of (PROTONIX) 17:33: in the [place] 20 mg EC 53 morning. Medical tablet Branch tamsulosin 2022-0 Yes Take by [facility] ers (FLOMAX) 2-21 mouth ity of 0.4 mg 24 17:33: daily. [place] hr [facility] 53 Medical Branch FLUoxetine 3-0 Yes 20mg Take 20 mg U nivers 20 mg 2-21 by mouth ity of capsule 17:33: in the [place] [address] morning. Medical Branch gabapentin 3-0 Yes 300mg Take 300 Un teo 300 mg 2-21 mg by ity of capsule 17:33: mouth 2 [place] [address] (two) Medical times Branch daily as needed. memantine 2023-0 Yes 10mg Take 10 mg Un teo 10 mg 2-21 by mouth ity of tablet 17:33: in the [place] [address] morning Medical and 10 mg Branch in the evening. simvastatin 2022-0 Yes 20mg Take 20 mg Univers 20 mg 2-21 by mouth ity of tablet 17:33: at [place] [address] bedtime. Medical Branch amLODIPine 2022-0 Yes 5mg Take 5 mg Un teo 5 mg tablet 2-21 by mouth ity of 17:33: at [place] [address] bedtime. Medical Branch aspirin 81 2022-0 Yes 81mg Take 81 mg U nivers mg EC 2-21 by mouth ity of tablet 17:33: in the [place] [address] morning. Medical Branch lisinopriL 2022-0 Yes 20mg Take 20 mg U nivers 20 mg 2-21 by mouth ity of tablet 17:33: in the [place] [address] morning Medical and 20 mg Branch in the evening. metFORMIN 2022-0 Yes 500mg Take 500 Uni vers 500 mg 2-21 mg by ity of tablet 17:33: mouth in [place] [address] the Medical morning Branch and 500 mg in the evening. Take with meals. pantoprazol 2022-0 Yes 40mg Take 40 mg Univers e 2-21 by mouth ity of (PROTONIX) 17:33: in the [place] 20 mg EC morning. Medical tablet Branch tamsulosin 0 Yes Take by [facility] ers (FLOMAX) 2-21 mouth ity of 0.4 mg 24 17:33: daily. [place] hr capsule Medical Branch FLUoxetine 2022-0 Yes 20mg Take 20 mg U nivers 20 mg 2-21 by mouth ity of capsule 17:33: in the [place] [address] morning. Medical Branch gabapentin 2022-0 Yes 300mg Take 300 Un teo 300 mg 2-21 mg by ity of capsule 17:33: mouth 2 [place] [address] (two) Medical times Branch daily as needed. memantine 2022-0 Yes 10mg Take 10 mg Un te[place] 10 mg 2-21 by mouth ity of tablet 17:33: in the [place] [address] morning Medical and 10 mg Branch in the evening. simvastatin 2022-0 Yes 20mg Take 20 mg Univers 20 mg 2-21 by mouth ity of tablet 17:33: at [place] [address] bedtime. Medical Branch levETIRAcet 2022-0 2023- No 250mg Take 250 Univers am (KEPPRA) 2-21 02-21 mg by ity of 250 mg 13:41: 00:00 mouth in [place] tablet 41 :00 the [facility] and 250 mg in the evening. levETIRAcet 2022- No [id number] 500mg Take 1 Univers am 500 mg 11-01 tablet by ity of tablet 00:00: 04:59 mouth in [place] 00 :00 the [facility] and 1 tablet in the evening. Do all this for 90 days. levETIRAcet 2022- No [id number] 500mg Take 1 Univers am 500 mg 11-01 tablet by ity of tablet 00:00: 04:59 mouth in [place] 00 :00 the [facility] and 1 tablet in the evening. Do all this for 90 days. levETIRAcet 2022- No [id number] 500mg Take 1 Univers am 500 mg 11-01 tablet by ity of tablet 00:00: 04:59 mouth in [place] 00 :00 the [facility] and 1 tablet in the evening. Do all this for 90 days. levETIRAcet 2022- No [id number] 500mg Take 1 Univers am 500 mg 11-01 tablet by ity of tablet 00:00: 04:59 mouth in [place] 00 :00 the [facility] and 1 tablet in the evening. Do all this for 90 days. levETIRAcet Yes 500mg 500 mg, Un te[place] am (KEPPRA) 2-20 Oral, BID, it y of tablet 500 02:00: First dose [place] mg 00 on [facility] 10/30/22 at Branch 1999, Until Discontinu ed, Routine morpHINE ( Yes 2mg 2 mg, Slow Univers mg/mL) 2-17 IV Push, ity of injection 2 02:52: Q4HPRN, [place] mg 02 Starting Medical on [facility] Branch 10/27/22 at 2051, Until Discontinu ed, Routine, Pain (scale 7-10) heparin Yes 5000U 5,000 Univers (porcine) 2-16 Units, ity of injection 20:00: Subcutaneo [place] 5,000 Units 00 us, Q8H, Medi joyce First dose Branch on [facility] 10/27/22 at 1400, Until Discontinu ed, Routine metoprolol 2023-0 Yes 25mg 25 mg, Unive rs tartrate 2-16 Oral, BID, ity o f (LOPRESSOR) 02:00: First dose [place] tablet 25 00 on 10/26/22 at Branch 2000, Until Discontinu ed, Routine metoprolol 2022-2022- No [id number] 25mg Take 1 Univers tartrate 25 2-16 -19 tablet by it y of mg tablet 00:00: 04:59 mouth in [place] 00 :00 the [facility] and 1 tablet in the evening. Do all this for 30 days. metoprolol 2022-0 2022- No [id number] 25mg Take 1 Univers tartrate 25 2-16 -19 tablet by it y of mg tablet 00:00: 04:59 mouth in [place] 00 :00 the [facility] and 1 tablet in the evening. Do all this for 30 days. metoprolol 2022-0 2022- No [id number] 25mg Take 1 Univers tartrate 25 -16 -19 tablet by it y of mg tablet 00:00: 04:59 mouth in [place] 00 :00 the [facility] and 1 tablet in the evening. Do all this for 30 days. KCL 2022-2022- No 40meq 40 mEq, Univers (KLOR-CON 10-26- Oral, ity of M20) tablet 05:45: 05:18 ONCE, 1 [place] 40 mEq 00 :00 dose, On [facility] 10/25/22 at 2345, Routine magnesium 2022- No [...] dose [place] mg 00 on Mon [facility] 10/25/22 at Branch 2100, Until Discontinu ed, Routine amLODIPine 2022-0 Yes 5mg 5 mg, Univer s (NORVASC) 2-15 Oral, QHS, ity of tablet 5 mg 03:00: First dose [place] 00 on [facility] 10/25/22 at Branch 2100, Until Discontinu ed, Routine phytonadion 2022-0 2022- No 10mg IV Unive rs e (VITAMIN 2-14 10-25 Piggyback, it y of K) 10 mg in 16:45: 18:08 ONCE, 1 [place] NaCl 0.9% 00 :00 dose, On Medica l (NS) [facility] piggyback 10/25/22 at 1045, 50 mL NaCl [...] xas 10 mL 01 Starting Medical on [facility] 10/25/22 at 0949, Until Discontinu ed, Routine, line maintenanc e lidocaine 2022-0 Yes 5mL 5 mL, Univers 1% (PF) -14 Subcutaneo ity of (XYLOCAINE) 15:49: us, PRN, [place] injection 5 01 Starting Medi joyce mL on [facility] 10/25/22 at 0949, Until Discontinu ed, Routine, Local anesthesia tamsulosin 2022-0 Yes .4mg 0.4 mg, Univ ers (FLOMAX) 2-14 Oral, ity of capsule 0.4 15:00: DAILY, [place] mg 00 First dose Medical on [facility] 10/25/22 at 0900, Until Discontinu ed, Routine pantoprazol 2022-0 Yes 40mg 40 mg, Univ ers e 2-14 Oral, ity of (PROTONIX) 15:00: DAILY, [place] EC tablet 00 First dose Medi joyce 40 mg on [facility] 10/25/22 at 0900, Until Discontinu ed, Routine FLUoxetine 2022-0 Yes 20mg 20 mg, Unive rs (PROZAC) 2-14 Oral, ity of capsule 20 15:00: DAILY, [place] mg 00 First dose Medical on [facility] 10/25/22 at 0900, Until Discontinu ed, Routine metFORMIN Yes 500mg 500 mg, Univ ers (GLUCOPHAGE 2-14 Oral, BID ity of ) tablet 14:00: MEALS, [place] 500 mg 00 First dose Medical on [facility] 10/25/22 at 0800, Until Discontinu ed, Routine memantine Yes 10mg 10 mg, Univer s (NAMENDA) 2-14 Oral, BID, ity of tablet 10 14:00: First dose [place] mg 00 on [facility] 10/25/22 at Branch 0800, Until Discontinu ed, Routine
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 Restricted medication : JARVIS MILLIGAN lisinopriL Yes 20mg 20 mg, Unive rs (PRINIVIL,Z 2-14 Oral, BID, it y of ESTRIL) 14:00: First dose [place] tablet 20 00 on [facility] mg 10/25/22 at Branch 0800, Until Discontinu ed, Routine gabapentin Yes 200mg 200 mg, Uni vers (NEURONTIN) 2-14 Oral, TID, it y of capsule 200 14:00: First dose [place] mg 00 on [facility] 10/25/22 at Branch 0800, Until Discontinu ed, Routine levETIRAcet 2022- No 500mg 500 mg, IV Univers am (KEPPRA) 10-2520 Piggyback, i ty of in NACL 14:00: 01:39 Q12H, [place] (ISO-OS) 00 :32 First dose Medic al 500 mg/100 on [facility] mL RTU 10/25/22 at 0800, Until Discontinu ed, Administer over 15 Minutes, 100 mL carvediloL 2022- No 6.25mg 6.25 mg, Univers (COREG) 10-25-15 Oral, BID ity of tablet 6.25 14:00: 21:58 MEALS, [place] mg 00 :13 First dose Medical on [facility] 10/25/22 at 0800, Until Discontinu ed, Routine Sliding Yes Subcutaneo Univ ers Scale 2-14 us, AC+HS, ity of Insulin-Reg 13:30: First dose [place] ular + Fsbg 00 on Mon Medica l Testing 10/25/22 at Branch 0730, Until Discontinu ed, Routine iopamidol 0 2022- No [id number] 80mL 80 mL, U nivers (ISOVUE -14 [...] Until Discontinu ed, Routine, Constipati on dextrose 0 Yes 250mL 250 mL, IV Un teo [...] 00 Starting Medical injection 1 on Mon [facility] 10/25/22 at 0107, Until Discontinu ed, YOKO, [...] 4 23 Starting Medi joyce mg on [facility] 10/25/22 at 0056, Until Discontinu ed, Routine, Nausea and Vomiting (N/V) acetaminoph 2022-0 Yes 650mg 650 mg, Un teo en 10-25 Oral, ity of (TYLENOL) 06:55: Q6HPRN, [place] tablet 650 49 Starting Medic al mg on [facility] 10/25/22 at 0055, Until Discontinu ed, Routine, Pain (scale 1-3) cefTRIAXone 2022-0 2023- No 1000mg 1,000 mg, Univers (ROCEPHIN) 10-25 IV ity of 1,000 mg in 01:00: 01:42 PigSudan, [place] NaCl 0.9% 00 :00 ONCE, 1 Medical (NS) 50 mL dose, On [facility]I-[facility] 10/24/22 at 1900, Administer over 30 Minutes, 50 mL
Reas on for Anti-Infec tive: Documented Infection< br>Documen timur Infection Site: Urine<br&g t;Duration of Therapy: Other (see Comments) LORazepam 2022-0 2022- No 1mg 1 mg, Slow U nivers (ATIVAN) 10-25 IV Push, ity of injection 1 01:00: 01:09 ONCE, 1 [place] mg 00 :00 dose, On [facility] 10/24/22 at 1900, STAT amLODIPine 2022-0 Yes 5mg Take 5 mg Un te[place] 5 mg tablet 10-08 by mouth ity of 13:19: at [place] [address] bedtime. Medical Branch aspirin 81 2022-0 Yes 81mg Take 81 mg U nivers mg EC 10-08 by mouth ity of tablet 13:19: in the [place] [address] morning. Medical Branch lisinopriL 2022-0 Yes 20mg Take 20 mg U nivers 20 mg 10-08 by mouth ity of tablet 13:19: in the [place] [address] morning Medical and 20 mg Branch in the evening. metFORMIN 2022-0 Yes 500mg Take 500 Uni vers 500 mg 1-28 mg by ity of tablet 13:19: mouth in [place] [address] the Medical morning Branch and 500 mg in the evening. Take with meals. pantoprazol 2023-0 Yes 40mg Take 40 mg Univers e 10-08 by mouth ity of (PROTONIX) 13:19: in the [place] 20 mg EC 28 morning. Medical tablet Branch tamsulosin 2022-0 Yes Take by [facility] ers (FLOMAX) 10-08 mouth ity of 0.4 mg 24 13:19: daily. [place] hr capsule 28 Medical Branch FLUoxetine 2022-0 Yes 20mg Take 20 mg U nivers 20 mg 10-08 by mouth ity of capsule 13:19: in the [place] [address] morning. Medical Branch gabapentin 2022-0 Yes 300mg Take 300 Un teo 300 mg - mg by ity of capsule 13:19: mouth 2 [place] [address] (two) Medical times Branch daily as needed. levETIRAcet 2022-0 Yes 250mg Take 250 U nivers am (KEPPRA) 10-08 mg by ity of 250 mg 13:19: mouth in [place] tablet 28 the Medical morning Branch and 250 mg in the evening. memantine 2022-0 Yes 10mg Take 10 mg Un teo 10 mg 10-08 by mouth ity of tablet 13:19: in the [place] [address] morning Medical and 10 mg Branch in the evening. simvastatin 2022-0 Yes 20mg Take 20 mg Univers 20 mg 10-08 by mouth ity of tablet 13:19: at [place] [address] bedtime. Medical Branch amLODIPine 2022-0 Yes 5mg Take 5 mg Un teo 5 mg tablet 10-08 by mouth ity of 13:19: at [place] [address] bedtime. Medical Branch aspirin 81 2022-0 Yes 81mg Take 81 mg U nivers mg EC 10-08 by mouth ity of tablet 13:19: in the [place] [address] morning. Medical Branch lisinopriL 2022-0 Yes 20mg Take 20 mg U nivers 20 mg 10-08 by mouth ity of tablet 13:19: in the [place] [address] morning Medical and 20 mg Branch in the evening. metFORMIN 3-0 Yes 500mg Take 500 Uni vers 500 mg - mg by ity of tablet 13:19: mouth in [place] [address] the Medical morning Branch and 500 mg in the evening. Take with meals. pantoprazol 3-0 Yes 40mg Take 40 mg Univers e 10-08 by mouth ity of (PROTONIX) 13:19: in the [place] 20 mg EC 28 morning. Medical tablet Branch tamsulosin 2022-0 Yes Take by [facility] ers (FLOMAX) 10-08 mouth ity of 0.4 mg 24 13:19: daily. [place] hr capsule Medical Branch FLUoxetine 2022-0 Yes 20mg Take 20 mg U nivers 20 mg 10-08 by mouth ity of capsule 13:19: in the [place] [address] morning. Medical Branch gabapentin 2022-0 Yes 300mg [...] by mouth ity of tablet 13:19: at [place] [address] bedtime. Medical Branch amLODIPine 2022-0 Yes 5mg Take 5 mg Un teo 5 mg tablet 10-08 by mouth ity of 13:19: at [place] [address] bedtime. Medical Branch aspirin 81 2022-0 Yes 81mg Take 81 mg U nivers mg EC 10-08 by mouth ity of tablet 13:19: in the [place] [address] morning. Medical Branch lisinopriL 2022-0 Yes 20mg Take 20 mg U nivers 20 mg 10-08 by mouth ity of tablet 13:19: in the [place] morning Medical and 20 mg Branch in the evening. metFORMIN 2022-0 Yes 500mg Take 500 Uni vers 500 mg - mg by ity of tablet 13:19: mouth in 28 the Medical morning Branch and 500 mg in the evening. Take with meals. pantoprazol 2022-0 Yes 40mg Take 40 mg Univers e 10-08 by mouth ity of (PROTONIX) 13:19: in the [place] 20 mg EC 28 morning. Medical tablet Branch tamsulosin 2022-0 Yes Take by [facility] ers (FLOMAX) 10-08 mouth ity of 0.4 mg 24 13:19: daily. [place] hr capsule 28 Medical Branch FLUoxetine 2023-0 Yes 20mg Take 20 mg U nivers 20 mg 10-08 by mouth ity of capsule 13:19: in the [place] [address] morning. Medical Branch gabapentin 0 Yes 300mg Take 300 Un teo 300 mg - mg by ity of capsule 13:19: mouth 2 [place] [address] (two) Medical times Branch daily as needed. levETIRAcet 0 Yes 250mg Take 250 U nivers am (KEPPRA) - mg by ity of 250 mg 13:19: mouth in [place] [facility] 28 the Medical morning Branch and 250 mg in the evening. memantine 0 Yes 10mg Take 10 mg Un teo 10 mg 10-08 by mouth ity of tablet 13:19: in the [place] morning Medical and 10 mg Branch in the evening. simvastatin 0 Yes 20mg Take 20 mg Univers 20 mg 10-08 by mouth ity of tablet 13:19: at [place] [address] bedtime. Medical Branch Sliding Yes Subcutaneo Univ [...] 03:45: First dose [place] 00 on Mon [facility] 10/07/22 at Branch 2145, Until Discontinu ed, Routine Sliding 2022- No Subcutaneo Uni vers Scale 10-08 , TID ity of Insulin - 03:45: 21:19 MEALS+HS, [place] Lispro 00 :30 First dose Medical (HumaLOG) + (after Branch Fsbg last Testing modificati on) on Mon10/07/22 at 2145, Until Discontinu ed, Routine melatonin 0 2022- No 3mg 3 mg, Univer s (MELATIN) 10-08 Oral, QHS, ity of tablet 3 mg 03:45: 21:19 First dose [place] 00 :30 on Mon [facility] 10/07/22 at Branch 2145, Until Discontinu ed, Routine dextrose 2023-0 Yes 250mL 250 mL, IV [...] at 0900, Until Discontinu ed, Routine FLUoxetine 0 Yes 20mg 20 mg, Unive rs (PROZAC) [...] 2022- No 1{tbl} 1 tablet, Univers docusate 1-27 01-28 Oral, ity of sodium 15:00: 21:19 DAILY, [...] Until Discontinu ed, Routine hydralAZINE 2022- No [id number] 10mg 10 mg, Univers (APRESOLINE 10-07 Slow IV ity of ) injection 12:15: 11:26 [place] 10 mg 00 :00 ONCE, 1 Medical dose, On Branch Mon10/07/22 at 0615, STAT hydralAZINE 2022- No [id number] 10mg 10 mg, Univers (APRESOLINE 10-07 Slow IV ity of ) injection 12:15: 11:26 [place] 10 mg 00 :00 ONCE, 1 Medical dose, On Branch Mon10/07/22 at 0615, STAT simvastatin Yes 20mg 20 mg, Univ ers (ZOCOR) 10-07 Oral, QHS, ity of tablet 20 03:00: First dose [place] mg 00 on [facility] 10/06/22 at [place] 2100, Until Discontinu ed, Routine amLODIPine Yes 5mg 5 mg, Univer s (NORVASC) 10-07 Oral, QHS, ity of tablet 5 mg 03:00: First dose [place] 00 on [facility] 10/06/22 at [place] 2100, Until Discontinu ed, Routine simvastatin 2022- No 20mg 20 mg, Uni vers (ZOCOR) 10-07 Oral, QHS, ity o f tablet 20 03:00: 21:19 First dose [place] mg 00 :30 on [facility] 10/06/22 at [place] 2099, Until Discontinu ed, Routine amLODIPine 2022- No 5mg 5 mg, Unive rs (NORVAS) 10-07 Oral, QHS, ity of tablet 5 mg 03:00: 21:19 First dose [place] 00 :30 on [facility] 10/06/22 at [place] 2099, Until Discontinu ed, Routine levETIRAcet Yes 250mg 250 mg, Un teo am (KEPPRA) 10-07 Oral, BID, it y of tablet 250 02:00: First dose [place] mg 00 on [facility] 10/06/22 at [place] 1999, Until Discontinu ed, Routine levETIRAcet 2022- No 250mg 250 mg, U nivers am (KEPPRA) 10-07 Oral, BID, i ty of tablet 250 02:00: 21:19 First dose [place] mg 00 :30 on [facility] 10/06/22 at [place] 2000, Until Discontinu ed, Routine carvediloL 2022- No [id number] 6.25mg Take 1 Univers 6.25 mg 10-07 tablet by ity of tablet 00:00: 05:59 mouth in [place] 00 :00 the Medical morning Branch and 1 tablet in the evening. Take with meals. Do all this for 30 days. carvediloL 2022- No [id number] 6.25mg Take 1 Univers 6.25 mg 1-27 02-27 tablet by ity of tablet 00:00: 05:59 mouth in [place] 00 :00 the Medical morning Branch and 1 tablet in the evening. Take with meals. Do all this for 30 days. carvediloL 2022-0 2022- No [id number] 6.25mg Take 1 Univers 6.25 mg 1-27 -27 tablet by ity of tablet 00:00: 05:59 mouth in [place] 00 :00 the Medical morning Branch and 1 tablet in the evening. Take with meals. Do all this for 30 days. carvediloL 2022-0 2022- No [id number] 6.25mg Take 1 Univers 6.25 mg -27 [...] [place] 10/06/22 at 1415, Routine lactated 2022-0 2022- [...] :00 ONCE, 1 Medical dose, On Branch [facility] 10/06/22 at 1400, STAT hydralAZINE 2022-0 2022- No 10mg 10 mg, Uni vers (APRESOLINE 10-06 Slow IV ity of ) injection 20:00: 19:15 [place] 10 mg 00 :00 ONCE, 1 Medical dose, On Branch [facility] 10/06/22 at 1400, STAT carvediloL 2022- Yes 6.25mg 6.25 mg, U nivers (COREG) [...] Medical mg last Branch modificati on) on [facility] 10/06/22 at 1145, Until Discontinu ed, Routine lisinopriL 2022-0 2022- No 20mg 20 mg, Univ ers (PRINIVIL,Z 10-06 Oral, BID, i ty of ESTRIL) 17:45: 21:19 First dose [place] tablet 20 00 :30 (after Medical mg last Branch modificati on) on [facility] 10/06/22 at 1145, Until Discontinu ed, Routine acetaminoph 2022-0 Yes 650mg 650 mg, Un teo en 10-06 Oral, ity of (TYLENOL) 17:33: Q6HPRN, [place] tablet 650 13 Starting Medic al mg on [facility] Branch 10/06/22 at 1133, Until Discontinu ed, Routine, Pain (scale 1-3) acetaminoph 2022-0 2022- No 650mg 650 mg, U nivers en 10-06 Oral, ity of (TYLENOL) 17:33: 21:19 Q6HPRN, [place] tablet 650 13 :30 Starting Medic al mg on [facility] Branch 10/06/22 at 1133, Until 10/08/22 at [...] Pain (scale 4-6) hydralAZINE 2022-0 2022- No [id number] 10mg 10 mg, Univers (APRESOLINE 10-06 Slow IV ity of ) injection 17:30: 16:31 [place] 10 mg 00 :00 ONCE, 1 Medical dose, On Branch [facility] 10/06/22 at 1130, STAT hydralAZINE 2022-0 2022- No [id number] 10mg 10 mg, Univers (APRESOLINE 10-06 Slow IV ity of ) injection 17:30: 16:31 [place] 10 mg 00 :00 ONCE, 1 Medical dose, On Branch [facility] 10/06/22 at 1130, STAT lidocaine 2022- No ONCE INTRA U nivers 1% (PF) 10-06 PROCEDURE, ity o f (XYLOCAINE) 14:22: 15:52 Starting [place] injection 52 :21 on [facility] 10/06/22 at Branch 0822, Until [facility] 10/06/22 at 0952, Routine, CV Intraproce dure iodixanol 2022- No ONCE INTRA U nivers (VISIPAQUE 10-06 PROCEDURE, it y of 320-100 mL) 14:03: 15:52 Starting [place] injection 41 :21 on [facility] Medical 10/06/22 at Branch 0803, Until [place] 10/06/22 at 0952, Routine, CV Intraproce dure hydralAZINE 2022-0 2022- No [id number] 10mg Inject 0.5 Univers 20 mg/mL 10-06 mL ity of injection 00:00: 00:00 intravenou [place] 00 :00 sly once Medical now for 1 Branch dose. hydralAZINE 2022- No [id number] 10mg Inject 0.5 Univers 20 mg/mL 10-06 01-27 mL ity of injection 00:00: 00:00 intravenou [place] 00 :00 sly once Medical now for 1 Branch dose. amitriptyli 2021-09- No [id number] 25mg Take 1 Univers ne 25 mg 0-23 10-31 tablet by ity o f tablet 00:00: 04:59 mouth at [place] 00 :00 bedtime Medical for 7 Branch days. amitriptyli 2021-09- No [id number] 25mg Take 1 Univers ne 25 mg 0-23 10-31 tablet by ity o f tablet 00:00: 04:59 mouth at [place] 00 :00 bedtime Medical for 7 Branch days. amitriptyli 2021-09- No [id number] 25mg Take 1 Univers ne 25 mg 0-23 10-31 tablet by ity o f tablet 00:00: 04:59 mouth at [place] 00 :00 bedtime Medical for 7 Branch days. amitriptyli 2021-09- No [id number] 25mg Take 1 Univers ne 25 mg 0-23 10-31 tablet by ity o f tablet 00:00: 04:59 mouth at [place] 00 :00 bedtime Medical for 7 Branch days. tamsulosin 2021-09 Yes .4mg 0.4 mg, Univ ers (FLOMAX) 0-16 Oral, QHS, ity o f capsule 0.4 02:00: First dose [place] mg 00 on [facility] 06/25/22 Branch at 2100, Until Discontinu ed, Routine amLODIPine 2021-09 Yes 5mg 5 mg, Univer s (NORVASC) 0-16 Oral, QHS, ity of tablet 5 mg 02:00: First dose [place] 00 on [facility] 06/25/22 Branch at 2100, Until Discontinu ed, Routine tamsulosin 2021-09- No .4mg 0.4 mg, Uni vers (FLOMAX) 0-16 10-15 Oral, QHS, ity of capsule 0.4 02:00: 21:09 First dose [place] mg 00 :41 on [facility] 06/25/22 Branch at 2100, Until Discontinu ed, Routine amLODIPine 2021-09 No 5mg 5 mg, Unive rs (NORVASC) 0-16 10-15 Oral, QHS, ity of tablet 5 mg 02:00: 21:09 First dose [place] 00 :41 on Sat Medical 06/25/22 Branch at 2100, Until Discontinu ed, Routine pantoprazol 2021-09- No [id number] 40mg Take 1 Univers e 0-16 01-15 tablet by ity of (PROTONIX) 00:00: 05:59 mouth in [place] 40 mg EC 00 :00 the Medical tablet morning Branch for 90 days. vitamin 2021-09- No [id number] 1000ug Take 1 U nivers B-12 1,000 0-16 01-15 tablet by ity of mcg tablet 00:00: 05:59 mouth in [place] 00 :00 the Medical morning Branch for 90 days. pantoprazol 2021-09- No [id number] 40mg Take 1 Univers e 0-16 01-15 tablet by ity of (PROTONIX) 00:00: 05:59 mouth in [place] 40 mg EC 00 :00 the Medical tablet morning Branch for 90 days. vitamin 2021-09- No [id number] 1000ug Take 1 U nivers B-12 1,000 0-16 01-15 tablet by ity of mcg tablet 00:00: 05:59 mouth in [place] 00 :00 the Medical morning Branch for 90 days. pantoprazol 2021-09- No [id number] 40mg Take 1 Univers e 0-16 01-15 tablet by ity of (PROTONIX) 00:00: 05:59 mouth in [place] 40 mg EC 00 :00 the Medical tablet morning Branch for 90 days. vitamin 2021-09- No [id number] 1000ug Take 1 U nivers B-12 1,000 0-16 01-15 tablet by ity of mcg tablet 00:00: 05:59 mouth in [place] 00 :00 the Medical morning Branch for 90 days. pantoprazol 2021-09- No [id number] 40mg Take 1 Univers e 0-16 01-15 tablet by ity of (PROTONIX) 00:00: 05:59 mouth in [place] 40 mg EC 00 :00 the Medical tablet morning Branch for 90 days. vitamin 2021-09- No [id number] 1000ug Take 1 U nivers B-12 1,000 0-16 01-15 tablet by ity of mcg tablet 00:00: 05:59 mouth in [place] 00 :00 the Medical morning Branch for 90 days. pantoprazol 2021-09- No [id number] 40mg Take 1 Univers e 0-16 01-15 tablet by ity of (PROTONIX) 00:00: 05:59 mouth in [place] 40 mg EC 00 :00 the Medical tablet morning Branch for 90 days. vitamin 2021-09- No [id number] 1000ug Take 1 U nivers B-12 1,000 0-16 01-15 tablet by ity of mcg tablet 00:00: 05:59 mouth in [place] 00 :00 the Medical morning Branch for 90 days. pantoprazol 2021-09- No [id number] 40mg Take 1 Univers e 0-16 01-15 tablet by ity of (PROTONIX) 00:00: 05:59 mouth in [place] 40 mg EC 00 :00 the Medical tablet morning Branch for 90 days. vitamin 2021-09- No [id number] 1000ug Take 1 U nivers B-12 1,000 0-16 01-15 tablet by ity of mcg tablet 00:00: 05:59 mouth in [place] 00 :00 the Medical morning Branch for 90 days. pantoprazol 2021-09- No [id number] 40mg Take 1 Univers e 0-16 01-15 tablet by ity of (PROTONIX) 00:00: 05:59 mouth in [place] 40 mg EC 00 :00 the Medical tablet morning Branch for 90 days. vitamin 2021-09- No [id number] 1000ug Take 1 U nivers B-12 1,000 0-16 01-15 tablet by ity of mcg tablet 00:00: 05:59 mouth in [place] 00 :00 the Medical morning Branch for 90 days. pantoprazol 2021-09- No [id number] 40mg Take 1 Univers e 0-16 01-15 tablet by ity of (PROTONIX) 00:00: 05:59 mouth in [place] 40 mg EC 00 :00 the Medical tablet morning Branch for 90 days. vitamin 2021-09- No [id number] 1000ug Take 1 U nivers B-12 1,000 0-16 01-15 tablet by ity of mcg tablet 00:00: 05:59 mouth in [place] 00 :00 the Medical morning Branch for 90 days. pantoprazol 2021-09- No [id number] 40mg Take 1 Univers e 0-16 01-15 tablet by ity of (PROTONIX) 00:00: 05:59 mouth in [place] 40 mg EC 00 :00 the Medical tablet morning Branch for 90 days. vitamin 2021-09- No [id number] 1000ug Take 1 U nivers B-12 1,000 0-16 01-15 tablet by ity of mcg tablet 00:00: 05:59 mouth in [place] 00 :00 the Medical morning Branch for 90 days. pantoprazol 2021-09- No [id number] 40mg Take 1 Univers e 0-16 01-15 tablet by ity of (PROTONIX) 00:00: 05:59 mouth in [place] 40 mg EC 00 :00 the Medical tablet morning Branch for 90 days. vitamin 2021-09- No [id number] 1000ug Take 1 U nivers B-12 1,000 0-16 01-15 tablet by ity of mcg tablet 00:00: 05:59 mouth in [place] 00 :00 the Medical morning Branch for 90 days. pantoprazol 2021-09- No [id number] 40mg Take 1 Univers e 0-16 01-15 tablet by ity of (PROTONIX) 00:00: 05:59 mouth in [place] 40 mg EC 00 :00 the Medical tablet morning Branch for 90 days. vitamin 2021-09- No [id number] 1000ug Take 1 U nivers B-12 1,000 0-16 01-15 tablet by ity of mcg tablet 00:00: 05:59 mouth in [place] 00 :00 the Medical morning Branch for 90 days. pantoprazol 2021-09- No [id number] 40mg Take 1 Univers e 0-16 01-15 tablet by ity of (PROTONIX) 00:00: 05:59 mouth in [place] 40 mg EC 00 :00 the Medical tablet morning Branch for 90 days. vitamin 2021-09- No [id number] 1000ug Take 1 U nivers B-12 1,000 0-16 01-15 tablet by ity of mcg tablet 00:00: 05:59 mouth in [place] 00 :00 the Medical [facility] Branch for 90 days. vitamin 2021-09 Yes 1000ug 1,000 mcg, Un teo B-12 0-15 Oral, ity of (CYANOCOBAL 14:00: DAILY, [place] CODY) 00 First dose Medical tablet (after Branch 1,000 mcg last modificati on) on [facility] 06/25/22 at 0900, Until Discontinu ed, Routine magnesium 2021-09 No 2g 2 g, IV Univ ers sulfate in 0-15 10-15 Piggyback, it y of water 2 14:00: 14:38 Administer [place] as gram/50 mL 00 :00 over 60 Medica l (4 %) Minutes, Branch infusion 2 ONCE, 1 g dose, On [facility] 06/25/22 at 0900, Routine vitamin 2021-09 No 1000ug 1,000 mcg, U nivers B-12 0-15 10-15 Oral, ity of (CYANOCOBAL 14:00: 21:09 DAILY, [place] as CODY) 00 :41 First dose Medical tablet (after Branch 1,000 mcg last modificati on) on [facility] 06/25/22 at 0900, Until Discontinu ed, Routine KCL 2021-09- No 40meq 40 mEq, Univers (KLOR-CON 0-15 10-15 Oral, ity of M20) tablet 13:45: 13:34 ONCE, 1 [place] 40 mEq 00 :00 dose, On Medical [facility] Branch 06/25/22 at 0845, Routine levETIRAcet 2021-09 Yes 250mg 250 mg, [place] am (KEPPRA) 0-15 Oral, BID, it y of tablet 250 13:00: First dose [place] mg 00 on [facility] 06/25/22 Branch at 0800, Until Discontinu ed, Routine levETIRAcet 2021-09- No 250mg 250 mg, U nivers am (KEPPRA) 0-15 10-15 Oral, BID, i ty of tablet 250 13:00: 21:09 First dose [place] mg 00 :41 on [facility] 06/25/22 Branch at 0800, Until Discontinu [...] [place] 24 :00 Medical Branch PEPCID 20 2021-09- [...] 24 :00 Medical Branch metFORMIN 2021-09- No [id number] 500mg Take 1 Univers 500 mg 09-24 tablet by ity of tablet 00:00: 05:59 mouth in [place] 00 :00 the Medical morning Branch and 1 tablet in the evening. Take with meals. Do all this for 90 days. tamsulosin 2021-09- No [id number] .4mg Take 1 Univers 0.4 mg 24 09-24 capsule by ity of hr capsule 00:00: 05:59 mouth at [facility] 00 :00 bedtime Medical for 90 Branch days. amLODIPine 2021-09- No [id number] 5mg Take 1 Univers 5 mg tablet 09-24 tablet by it y of 00:00: 05:59 mouth at [place] 00 :00 bedtime Medical for 90 Branch days. levETIRAcet 2021-09- No [id number] 250mg Take 1 Univers am 250 mg 0-14 tablet by ity of tablet 00:00: 05:59 mouth in [place] 00 :00 the Medical morning Branch and 1 tablet in the evening. Do all this for 90 days. lisinopriL 2021-09- No [id number] 20mg Take 1 Univers 20 mg 0-15 -14 tablet by ity of tablet 00:00: 05:59 mouth in [place] 00 :00 the Medical morning Branch and 1 tablet in the evening. Do all this for 90 days. FLUoxetine 2021-09- No [id number] 20mg Take 1 Univers 20 mg 0-15 -14 capsule by ity of capsule 00:00: 05:59 mouth in [place] 00 :[address] [facility] Branch for 90 days. memantine 2021-09- No [id number] 10mg Take 1 U nivers 10 mg 0-15 -14 tablet by ity of tablet 00:00: 05:59 mouth in [place] 00 :00 the [facility] morning Branch and 1 tablet in the evening. Do all this for 90 days. pyridostigm 2021-09- No [id number] 60mg Take 1 Univers ine 60 mg 0-15 -14 tablet by ity of tablet 00:00: 05:59 mouth as [place] 00 :00 needed for Medical Other Branch (HYPOTENSI ON) for up to 90 days. simvastatin 2021-09- No [id number] 20mg Take 1 Univers 20 mg 0-15 -14 tablet by ity of tablet 00:00: 05:59 mouth at [place] 00 :00 bedtime Medical for 90 Branch days. aspirin 81 2021-09- No [id number] 81mg Take 1 Univers mg chewable 0-15 -14 tablet by it y of tablet 00:00: 05:59 mouth in [place] 00 :00 the [facility] for 90 days. KCL 20 mEq 2021-09- No [id number] 40meq Take 2 Univers tablet 0-15 -14 tablets by ity of 00:00: 05:59 mouth in [place] 00 :00 the [facility] morning [place] for 90 days. metFORMIN 2021-093- No [id number] 500mg Take 1 Univers 500 mg 0-15 -14 tablet by ity of tablet 00:00: 05:59 mouth in [place] 00 :00 the Medical morning Branch and 1 tablet in the evening. Take with meals. Do all this for 90 days. tamsulosin 2021-09- No [id number] .4mg Take 1 Univers 0.4 mg 24 0-15 -14 capsule by ity of hr capsule 00:00: 05:59 mouth at [place] 00 :00 bedtime Medical for 90 Branch days. amLODIPine 2021-09- No [id number] 5mg Take 1 Univers 5 mg tablet 0-14 tablet by it y of 00:00: 05:59 mouth at [place] 00 :00 bedtime Medical for 90 Branch days. levETIRAcet 2021-09- No [id number] 250mg Take 1 Univers am 250 mg 009-24 tablet by ity of tablet 00:00: 05:59 mouth in [place] 00 :00 the Medical morning Branch and 1 tablet in the evening. Do all this for 90 days. lisinopriL 2021-09- No [id number] 20mg Take 1 Univers 20 mg 0-15 - tablet by ity of tablet 00:00: 05:59 mouth in [place] 00 :00 the Medical morning Branch and 1 tablet in the evening. Do all this for 90 days. FLUoxetine 2021-09- No [id number] 20mg Take 1 Univers 20 mg 0-15 - capsule by ity of capsule 00:00: 05:59 mouth in [place] 00 :00 the Medical morning Branch for 90 days. memantine 2021-09- No [id number] 10mg Take 1 U nivers 10 mg 009-24 tablet by ity of tablet 00:00: 05:59 mouth in [place] 00 :00 the Medical morning Branch and 1 tablet in the evening. Do all this for 90 days. pyridostigm 2021-09- No [id number] 60mg Take 1 Univers ine 60 mg 0-09-24 tablet by ity of tablet 00:00: 05:59 mouth as [place] 00 :00 needed for Medical Other Branch (HYPOTENSI ON) for up to 90 days. simvastatin 2021-09- No [id number] 20mg Take 1 Univers 20 mg 0-15 -14 tablet by ity of tablet 00:00: 05:59 mouth at [place] 00 :00 bedtime Medical for 90 Branch days. aspirin 81 2021-09- No [id number] 81mg Take 1 Univers mg chewable 0-15 - tablet by it y of tablet 00:00: 05:59 mouth in [place] 00 :00 the Medical morning Branch for 90 days. KCL 20 mEq 2021-09- No [id number] 40meq Take 2 Univers tablet 0- tablets by ity of 00:00: 05:59 mouth in [place] 00 :00 the [facility] for 90 days. metFORMIN 2021-09- No [id number] 500mg Take 1 Univers 500 mg 015 -14 tablet by ity of tablet 00:00: 05:59 mouth in [place] 00 :00 the [facility] and 1 tablet in the evening. Take with meals. Do all this for 90 days. tamsulosin 2021-09- No [id number] .4mg Take 1 Univers 0.4 mg 24 009-24 capsule by ity of hr capsule 00:00: 05:59 mouth at [facility] 00 :00 bedtime [facility] for 90 Branch days. amLODIPine 2021-09- No [id number] 5mg Take 1 Univers 5 mg tablet 009-24 tablet by it y of 00:00: 05:59 mouth at [place] 00 :00 bedtime [facility] for 90 Branch days. levETIRAcet 2021-09- No [id number] 250mg Take 1 Univers am 250 mg 0- tablet by ity of tablet 00:00: 05:59 mouth in [place] 00 :00 the [facility] and 1 tablet in the evening. Do all this for 90 days. lisinopriL 2021-09- No [id number] 20mg Take 1 Univers 20 mg 0- tablet by ity of tablet 00:00: 05:59 mouth in [place] 00 :00 the [facility] and 1 tablet in the evening. Do all this for 90 days. FLUoxetine 2021-09- No [id number] 20mg Take 1 Univers 20 mg 0-14 capsule by ity of capsule 00:00: 05:59 mouth in [place] 00 :00 the [facility] for 90 days. memantine 2021-09- No [id number] 10mg Take 1 U nivers 10 mg 015 -14 tablet by ity of tablet 00:00: 05:59 mouth in [place] 00 :00 the [facility] and 1 tablet in the evening. Do all this for 90 days. pyridostigm 2021-09- No [id number] 60mg Take 1 Univers ine 60 mg 0-15 -14 tablet by ity of tablet 00:00: 05:59 mouth as [place] 00 :00 needed for Medical Other Branch (HYPOTENSI ON) for up to 90 days. simvastatin 2021-09- No [id number] 20mg Take 1 Univers 20 mg 0-15 -14 tablet by ity of tablet 00:00: 05:59 mouth at [place] 00 :00 bedtime Medical for 90 Branch days. aspirin 81 2021-09- No [id number] 81mg Take 1 Univers mg chewable 0-15 -14 tablet by it y of tablet 00:00: 05:59 mouth in [place] 00 :00 the Medical morning Branch for 90 days. metFORMIN 2021-09- No [id number] 500mg Take 1 Univers 500 mg 0-15 -14 tablet by ity of tablet 00:00: 05:59 mouth in [place] 00 :00 the Medical morning Branch and 1 tablet in the evening. Take with meals. Do all this for 90 days. tamsulosin 2021-09- No [id number] .4mg Take 1 Univers 0.4 mg 24 0-25 09- capsule by ity of hr capsule 00:00: 05:59 mouth at [facility] 00 :00 bedtime Medical for 90 Branch days. amLODIPine 2021-09- No [id number] 5mg Take 1 Univers 5 mg tablet 009-24 tablet by it y of 00:00: 05:59 mouth at [place] 00 :00 bedtime Medical for 90 Branch days. levETIRAcet 2021-09- No [id number] 250mg Take 1 Univers am 250 mg 0-25 09- tablet by ity of tablet 00:00: 05:59 mouth in [place] 00 :00 the Medical morning Branch and 1 tablet in the evening. Do all this for 90 days. lisinopriL 2021-09- No [id number] 20mg Take 1 Univers 20 mg 0-15 -14 tablet by ity of tablet 00:00: 05:59 mouth in [place] 00 :00 the Medical morning Branch and 1 tablet in the evening. Do all this for 90 days. FLUoxetine 2021-09- No [id number] 20mg Take 1 Univers 20 mg 0-15 -14 capsule by ity of capsule 00:00: 05:59 mouth in [place] 00 :00 the Medical morning Branch for 90 days. memantine 2021-09- No [id number] 10mg Take 1 U nivers 10 mg 009-24 tablet by ity of tablet 00:00: 05:59 mouth in [place] 00 :00 the Medical morning Branch and 1 tablet in the evening. Do all this for 90 days. pyridostigm 2021-09- No [id number] 60mg Take 1 Univers ine 60 mg 009-24 tablet by ity of tablet 00:00: 05:59 mouth as [place] 00 :00 needed for Medical Other Branch (HYPOTENSI ON) for up to 90 days. simvastatin 2021-09- No [id number] 20mg Take 1 Univers 20 mg 009-24 tablet by ity of tablet 00:00: 05:59 mouth at [place] 00 :00 bedtime Medical for 90 Branch days. aspirin 81 2021-09- No [id number] 81mg Take 1 Univers mg chewable 09-24 tablet by it y of tablet 00:00: 05:59 mouth in [place] 00 :00 the [facility] morning [place] for 90 days. KCL 20 mEq 2021-09- No [id number] 40meq Take 2 Univers tablet 09-24 tablets by ity of 00:00: 05:59 mouth in [place] 00 :00 the [facility] morning [place] for 90 days. metFORMIN 2021-09- No [id number] 500mg Take 1 Univers 500 mg 009-24 tablet by ity of tablet 00:00: 05:59 mouth in [place] 00 :00 the Medical morning Branch and 1 tablet in the evening. Take with meals. Do all this for 90 days. tamsulosin 2021-09- No [id number] .4mg Take 1 Univers 0.4 mg 24 09-24 capsule by ity of hr capsule 00:00: 05:59 mouth at [facility] 00 :00 bedtime Medical for 90 Branch days. amLODIPine 2021-09- No [id number] 5mg Take 1 Univers 5 mg tablet 09-24 tablet by it y of 00:00: 05:59 mouth at [place] 00 :00 bedtime Medical for 90 Branch days. levETIRAcet 2021-09- No [id number] 250mg Take 1 Univers am 250 mg 0-15 -14 tablet by ity of tablet 00:00: 05:59 mouth in [place] 00 :00 the Medical morning Branch and 1 tablet in the evening. Do all this for 90 days. lisinopriL 2021-09- No [id number] 20mg Take 1 [facility] 20 mg 0-15 -14 tablet by ity of tablet 00:00: 05:59 mouth in [place] 00 :00 the Medical morning Branch and 1 tablet in the evening. Do all this for 90 days. FLUoxetine 2021-09- No [id number] 20mg Take 1 [facility] 20 mg 0-15 -14 capsule by ity of capsule 00:00: 05:59 mouth in [place] 00 :00 the [facility] morning Branch for 90 days. memantine 2021-09- No [id number] 10mg Take 1 U nivers 10 mg 0-15 -14 tablet by ity of tablet 00:00: 05:59 mouth in [place] 00 :00 the [facility] morning Branch and 1 tablet in the evening. Do all this for 90 days. pyridostigm 2021-09- No [id number] 60mg Take 1 [facility] ine 60 mg 0-15 -14 tablet by ity of tablet 00:00: 05:59 mouth as [place] 00 :00 needed for Medical Other Branch (HYPOTENSI ON) for up to 90 days. simvastatin 2021-09- No [id number] 20mg Take 1 [facility] 20 mg 0-15 -14 tablet by ity of tablet 00:00: 05:59 mouth at [place] 00 :00 bedtime Medical for 90 Branch days. aspirin 81 2021-09- No [id number] 81mg Take 1 [facility] mg chewable 0-15 -14 tablet by it y of tablet 00:00: 05:59 mouth in [place] 00 :00 the Medical morning Branch for 90 days. KCL 20 mEq 2021-09- No [id number] 40meq Take 2 [facility] tablet 0-15 -14 tablets by ity of 00:00: 05:59 mouth in [place] 00 :00 the Medical morning Branch for 90 days. metFORMIN 2021-09- No [id number] 500mg Take 1 [facility] 500 mg 0-15 -14 tablet by ity of tablet 00:00: 05:59 mouth in [place] 00 :00 the Medical morning Branch and 1 tablet in the evening. Take with meals. Do all this for 90 days. tamsulosin 2021-09- No [id number] .4mg Take 1 [facility] 0.4 mg 24 0-15 -14 capsule by ity of hr capsule 00:00: 05:59 mouth at [place] 00 :00 bedtime Medical for 90 Branch days. amLODIPine 2021-09- No [id number] 5mg Take 1 [facility] 5 mg tablet 0-14 tablet by it y of 00:00: 05:59 mouth at [place] 00 :00 bedtime Medical for 90 Branch days. levETIRAcet 2021-09- No [id number] 250mg Take 1 [facility] am 250 mg 0-14 tablet by ity of tablet 00:00: 05:59 mouth in [place] 00 :00 the Medical morning Branch and 1 tablet in the evening. Do all this for 90 days. lisinopriL 2021-09- No [id number] 20mg Take 1 [facility] 20 mg 0-15 - tablet by ity of tablet 00:00: 05:59 mouth in [place] 00 :00 the Medical morning Branch and 1 tablet in the evening. Do all this for 90 days. FLUoxetine 2021-09- No [id number] 20mg Take 1 [facility] 20 mg 0-15 -14 capsule by ity of capsule 00:00: 05:59 mouth in [place] 00 :00 the Medical morning Branch for 90 days. memantine 2021-09- No [id number] 10mg Take 1 U nivers 10 mg 0-15 -14 tablet by ity of tablet 00:00: 05:59 mouth in [place] 00 :00 the Medical morning Branch and 1 tablet in the evening. Do all this for 90 days. pyridostigm 2021-09- No [id number] 60mg Take 1 [facility] ine 60 mg 0-15 -14 tablet by ity of tablet 00:00: 05:59 mouth as [place] 00 :00 needed for Medical Other Branch (HYPOTENSI ON) for up to 90 days. simvastatin 2021-09- No [id number] 20mg Take 1 [facility] 20 mg 0-15 -14 tablet by ity of tablet 00:00: 05:59 mouth at [place] 00 :00 bedtime Medical for 90 Branch days. aspirin 81 2021-09- No [id number] 81mg Take 1 [facility] mg chewable 0-15 -14 tablet by it y of tablet 00:00: 05:59 mouth in [place] 00 :00 the [facility] morning [place] for 90 days. KCL 20 mEq 2021-09- No [id number] 40meq Take 2 [facility] tablet 0-15 -14 tablets by ity of 00:00: 05:59 mouth in [place] 00 :00 the [facility] morning [place] for 90 days. metFORMIN 2021-09- No [id number] 500mg Take 1 [facility] 500 mg 0-15 -14 tablet by ity of tablet 00:00: 05:59 mouth in [place] 00 :00 the Medical morning Branch and 1 tablet in the evening. Take with meals. Do all this for 90 days. tamsulosin 2021-09- No [id number] .4mg Take 1 [facility] 0.4 mg 24 009-24 capsule by ity of hr capsule 00:00: 05:59 mouth at [facility] 00 :00 bedtime [facility] for 90 Branch days. amLODIPine 2021-09- No [id number] 5mg Take 1 Univers 5 mg tablet 0- tablet by it y of 00:00: 05:59 mouth at [place] 00 :00 [facility] for 90 Branch days. levETIRAcet 2021-09- No [id number] 250mg Take 1 [facility] am 250 mg 0- tablet by ity of tablet 00:00: 05:59 mouth in [place] 00 :00 the [facility] morning Branch and 1 tablet in the evening. Do all this for 90 days. lisinopriL 2021-09- No [id number] 20mg Take 1 [facility] 20 mg 0-15 -14 tablet by ity of tablet 00:00: 05:59 mouth in [place] 00 :00 the Medical morning Branch and 1 tablet in the evening. Do all this for 90 days. FLUoxetine 2021-09- No [id number] 20mg Take 1 [facility] 20 mg 0-15 -14 capsule by ity of capsule 00:00: 05:59 mouth in [place] 00 :00 the [facility] morning [place] for 90 days. memantine 2021-09- No [id number] 10mg Take 1 U nivers 10 mg 0-15 01-14 tablet by ity of tablet 00:00: 05:59 mouth in [place] 00 :00 the Medical morning Branch and 1 tablet in the evening. Do all this for 90 days. pyridostigm 2021-09- No [id number] 60mg Take 1 [facility] ine 60 mg 0-15 -14 tablet by ity of tablet 00:00: 05:59 mouth as [place] 00 :00 needed for Medical Other Branch (HYPOTENSI ON) for up to 90 days. simvastatin 2021-09- No [id number] 20mg Take 1 [facility] 20 mg 0-15 09-24 tablet by ity of tablet 00:00: 05:59 mouth at [place] 00 :00 bedtime Medical for 90 Branch days. aspirin 81 2021-09- No [id number] 81mg Take 1 [facility] mg chewable 009-24 tablet by it y of tablet 00:00: 05:59 mouth in [place] 00 :00 the Medical morning Branch for 90 days. KCL 20 mEq 2021-09- No [id number] 40meq Take 2 [facility] tablet 009-24 tablets by ity of 00:00: 05:59 mouth in [place] 00 :00 the Medical morning Branch for 90 days. metFORMIN 2021-09- No [id number] 500mg Take 1 [facility] 500 mg 009-24 tablet by ity of tablet 00:00: 05:59 mouth in [place] 00 :00 the Medical morning Branch and 1 tablet in the evening. Take with meals. Do all this for 90 days. tamsulosin 2021-09- No [id number] .4mg Take 1 [facility] 0.4 mg 24 09-24 capsule by ity of hr capsule 00:00: 05:59 mouth at [facility] 00 :00 bedtime Medical for 90 Branch days. amLODIPine 2021-09- No [id number] 5mg Take 1 [facility] 5 mg tablet 009-24 tablet by it y of 00:00: 05:59 mouth at [place] 00 :00 bedtime Medical for 90 Branch days. levETIRAcet 2021-09- No [id number] 250mg Take 1 [facility] am 250 mg 009-24 tablet by ity of tablet 00:00: 05:59 mouth in [place] 00 :00 the Medical morning Branch and 1 tablet in the evening. Do all this for 90 days. lisinopriL 2021-09- No [id number] 20mg Take 1 [facility] 20 mg 0-15 -14 tablet by ity of tablet 00:00: 05:59 mouth in [place] 00 :00 the Medical morning Branch and 1 tablet in the evening. Do all this for 90 days. FLUoxetine 2021-09- No [id number] 20mg Take 1 [facility] 20 mg 0-15 -14 capsule by ity of capsule 00:00: 05:59 mouth in [place] 00 :00 the [facility] for 90 days. memantine 2021-09- No [id number] 10mg Take 1 U nivers 10 mg 0-15 -14 tablet by ity of tablet 00:00: 05:59 mouth in [place] 00 :00 the [facility] and 1 tablet in the evening. Do all this for 90 days. pyridostigm 2021-09- No [id number] 60mg Take 1 [facility] ine 60 mg 0-25 09- tablet by ity of tablet 00:00: 05:59 mouth as [place] 00 :00 needed for Medical Other Branch (HYPOTENSI ON) for up to 90 days. simvastatin 2021-09- No [id number] 20mg Take 1 [facility] 20 mg 0-15 -14 tablet by ity of tablet 00:00: 05:59 mouth at [place] 00 :00 bedtime Medical for 90 Branch days. aspirin 81 2021-09- No [id number] 81mg Take 1 [facility] mg chewable 0-25 09-14 tablet by it y of tablet 00:00: 05:59 mouth in [place] 00 :00 the [facility] for 90 days. KCL 20 mEq 2021-09- No [id number] 40meq Take 2 [facility] tablet 015 -14 tablets by ity of 00:00: 05:59 mouth in [place] 00 :00 the [facility] morning [place] for 90 days. metFORMIN 2021-093- No [id number] 500mg Take 1 [facility] 500 mg 0-15 -14 tablet by ity of tablet 00:00: 05:59 mouth in [place] 00 :00 the Medical morning Branch and 1 tablet in the evening. Take with meals. Do all this for 90 days. tamsulosin 2021-09- No [id number] .4mg Take 1 [facility] 0.4 mg 24 0-15 -14 capsule by ity of hr capsule 00:00: 05:59 mouth at [place] 00 :00 bedtime Medical for 90 Branch days. amLODIPine 2021-09- No [id number] 5mg Take 1 [facility] 5 mg tablet 015 -14 tablet by it y of 00:00: 05:59 mouth at [place] 00 :00 bedtime Medical for 90 Branch days. levETIRAcet 2021-09- No [id number] 250mg Take 1 [facility] am 250 mg 0-15 -14 tablet by ity of tablet 00:00: 05:59 mouth in [place] 00 :00 the Medical morning Branch and 1 tablet in the evening. Do all this for 90 days. lisinopriL 2021-09- No [id number] 20mg Take 1 [facility] 20 mg 0-15 -14 tablet by ity of tablet 00:00: 05:59 mouth in [place] 00 :00 the Medical morning Branch and 1 tablet in the evening. Do all this for 90 days. FLUoxetine 2021-09- No [id number] 20mg Take 1 [facility] 20 mg 0-15 -14 capsule by ity of capsule 00:00: 05:59 mouth in [place] 00 :00 the Medical morning Branch for 90 days. memantine 2021-09- No [id number] 10mg Take 1 U nivers 10 mg 0-15 - tablet by ity of tablet 00:00: 05:59 mouth in [place] 00 :00 the Medical morning Branch and 1 tablet in the evening. Do all this for 90 days. pyridostigm 2021-09- No [id number] 60mg Take 1 [facility] ine 60 mg 0-15 -14 tablet by ity of tablet 00:00: 05:59 mouth as [place] 00 :00 needed for Medical Other Branch (HYPOTENSI ON) for up to 90 days. simvastatin 2021-09- No [id number] 20mg Take 1 [facility] 20 mg 0-15 -14 tablet by ity of tablet 00:00: 05:59 mouth at [place] 00 :00 bedtime Medical for 90 Branch days. aspirin 81 2021-09- No [id number] 81mg Take 1 [facility] mg chewable 0-15 -14 tablet by it y of tablet 00:00: 05:59 mouth in [place] 00 :00 the [facility] for 90 days. KCL 20 mEq 2021-09- No [id number] 40meq Take 2 Univers tablet 0- tablets by ity of 00:00: 05:59 mouth in [place] 00 :00 the [facility] for 90 days. metFORMIN 2021-09- No [id number] 500mg Take 1 [facility] 500 mg 0- tablet by ity of tablet 00:00: 05:59 mouth in [place] 00 :00 the [facility] and 1 tablet in the evening. Take with meals. Do all this for 90 days. tamsulosin 2021-09- No [id number] .4mg Take 1 [facility] 0.4 mg 24 09-24 capsule by ity of hr capsule 00:00: 05:59 mouth at [facility] 00 :00 bedtime [facility] for 90 Branch days. amLODIPine 2021-09- No [id number] 5mg Take 1 [facility] 5 mg tablet 009-24 tablet by it y of 00:00: 05:59 mouth at [place] 00 :00 [facility] for 90 Branch days. levETIRAcet 2021-09- No [id number] 250mg Take 1 [facility] am 250 mg 09-24 tablet by ity of tablet 00:00: 05:59 mouth in [place] 00 :00 the [facility] and 1 tablet in the evening. Do all this for 90 days. lisinopriL 2021-09- No [id number] 20mg Take 1 [facility] 20 mg 0- tablet by ity of tablet 00:00: 05:59 mouth in [place] 00 :00 the [facility] and 1 tablet in the evening. Do all this for 90 days. FLUoxetine 2021-09- No [id number] 20mg Take 1 [facility] 20 mg 0- capsule by ity of capsule 00:00: 05:59 mouth in [place] 00 :00 the [facility] for 90 days. memantine 2021-09- No [id number] 10mg Take 1 U nivers 10 mg 0-14 tablet by ity of tablet 00:00: 05:59 mouth in [place] 00 :00 the [facility] and 1 tablet in the evening. Do all this for 90 days. pyridostigm 2021-09- No [id number] 60mg Take 1 [facility] ine 60 mg 0-15 -14 tablet by ity of tablet 00:00: 05:59 mouth as [place] 00 :00 needed for Medical Other Branch (HYPOTENSI ON) for up to 90 days. simvastatin 2021-09- No [id number] 20mg Take 1 [facility] 20 mg 0-15 -14 tablet by ity of tablet 00:00: 05:59 mouth at [place] 00 :00 bedtime Medical for 90 Branch days. aspirin 81 2021-09- No [id number] 81mg Take 1 [facility] mg chewable 0-15 -14 tablet by it y of tablet 00:00: 05:59 mouth in [place] 00 :00 the Medical morning Branch for 90 days. KCL 20 mEq 2021-09- No [id number] 40meq Take 2 [facility] tablet 009-24 tablets by ity of 00:00: 05:59 mouth in [place] 00 :00 the Medical morning Branch for 90 days. metFORMIN 2021-09- No [id number] 500mg Take 1 [facility] 500 mg 009-24 tablet by ity of tablet 00:00: 05:59 mouth in [place] 00 :00 the Medical morning Branch and 1 tablet in the evening. Take with meals. Do all this for 90 days. tamsulosin 2021-09- No [id number] .4mg Take 1 [facility] 0.4 mg 24 009-24 capsule by ity of hr capsule 00:00: 05:59 mouth [place] 00 :00 bedtime Medical for 90 Branch days. amLODIPine 2021-09- No [id number] 5mg Take 1 [facility] 5 mg tablet 009-24 tablet by it y of 00:00: 05:59 mouth at [place] 00 :00 bedtime Medical for 90 Branch days. levETIRAcet 2021-09- No [id number] 250mg Take 1 [facility] am 250 mg 0-09-24 tablet by ity of tablet 00:00: 05:59 mouth in [place] 00 :00 the Medical morning Branch and 1 tablet in the evening. Do all this for 90 days. lisinopriL 2021-09- No [id number] 20mg Take 1 [facility] 20 mg 0-15 -14 tablet by ity of tablet 00:00: 05:59 mouth in [place] 00 :00 the Medical morning Branch and 1 tablet in the evening. Do all this for 90 days. FLUoxetine 2021-09- No [id number] 20mg Take 1 [facility] 20 mg 0-15 -14 capsule by ity of capsule 00:00: 05:59 mouth in [place] 00 :00 the Medical morning Branch for 90 days. memantine 2021-09- No [id number] 10mg Take 1 U nivers 10 mg 0-15 -14 tablet by ity of tablet 00:00: 05:59 mouth in [place] 00 :00 the Medical morning Branch and 1 tablet in the evening. Do all this for 90 days. pyridostigm 2021-09- No [id number] 60mg Take 1 [facility] ine 60 mg 0-15 -14 tablet by ity of tablet 00:00: 05:59 mouth as [place] 00 :00 needed for Medical Other Branch (HYPOTENSI ON) for up to 90 days. simvastatin 2021-09- No [id number] 20mg Take 1 [facility] 20 mg 0-15 -14 tablet by ity of tablet 00:00: 05:59 mouth at [place] 00 :00 bedtime Medical for 90 Branch days. aspirin 81 2021-09- No [id number] 81mg Take 1 [facility] mg chewable 0-15 -14 tablet by it y of tablet 00:00: 05:59 mouth in [place] 00 :00 the [facility] morning Branch for 90 days. KCL 20 mEq 2021-09- No [id number] 40meq Take 2 [facility] tablet 0-15 -14 tablets by ity of 00:00: 05:59 mouth in [place] 00 :00 the Medical morning Branch for 90 days. metFORMIN 2021-09- No [id number] 500mg Take 1 [facility] 500 mg 0-15 -14 tablet by ity of tablet 00:00: 05:59 mouth in [place] 00 :00 the Medical morning Branch and 1 tablet in the evening. Take with meals. Do all this for 90 days. tamsulosin 2021-09- No [id number] .4mg Take 1 [facility] 0.4 mg 24 0-15 -14 capsule by ity of hr capsule 00:00: 05:59 mouth at [place] 00 :00 bedtime Medical for 90 Branch days. amLODIPine 2021-09- No [id number] 5mg Take 1 [facility] 5 mg tablet 0- tablet by it y of 00:00: 05:59 mouth at [place] 00 :00 bedtime Medical for 90 Branch days. levETIRAcet 2021-09- No [id number] 250mg Take 1 [facility] am 250 mg 0-14 tablet by ity of tablet 00:00: 05:59 mouth in [place] 00 :00 the Medical morning Branch and 1 tablet in the evening. Do all this for 90 days. lisinopriL 2021-09- No [id number] 20mg Take 1 [facility] 20 mg 0- tablet by ity of tablet 00:00: 05:59 mouth in [place] 00 :00 the Medical morning Branch and 1 tablet in the evening. Do all this for 90 days. FLUoxetine 2021-09- No [id number] 20mg Take 1 [facility] 20 mg 009-24 capsule by ity of capsule 00:00: 05:59 mouth in [place] 00 :00 the [facility] morning [place] for 90 days. memantine 2021-09- No [id number] 10mg Take 1 U nivers 10 mg 009-24 tablet by ity of tablet 00:00: 05:59 mouth in [place] 00 :00 the [facility] morning Branch and 1 tablet in the evening. Do all this for 90 days. pyridostigm 2021-09- No [id number] 60mg Take 1 [facility] ine 60 mg 0- tablet by ity of tablet 00:00: 05:59 mouth as [place] 00 :00 needed for Medical Other Branch (HYPOTENSI ON) for up to 90 days. simvastatin 2021-09- No [id number] 20mg Take 1 [facility] 20 mg 0-14 tablet by ity of tablet 00:00: 05:59 mouth at [place] 00 :00 bedtime Medical for 90 Branch days. aspirin 81 2021-09- No [id number] 81mg Take 1 [facility] mg chewable 015 -14 tablet by it y of tablet 00:00: 05:59 mouth in [place] 00 :00 the [facility] morning [place] for 90 days. KCL 20 mEq 2021-09- No [id number] 40meq Take 2 Univers tablet 015 01-14 tablets by ity of 00:00: 05:59 mouth in [place] 00 :00 the Medical morning Branch for 90 days. gabapentin 2021-09- No [id number] 300mg Take 1 [facility] 300 mg 0-15 12-15 capsule by ity of capsule 00:00: 05:59 mouth as [place] 00 :00 needed for Medical Pain Branch (scale 4-6) for up to 60 days. gabapentin 2021-09- No [id number] 300mg Take 1 [facility] 300 mg 0-15 12-15 capsule by ity of capsule 00:00: 05:59 mouth as [place] 00 :00 needed for Medical Pain Branch (scale 4-6) for up to 60 days. gabapentin 2021-09- No [id number] 300mg Take 1 [facility] 300 mg 0-15 12-15 capsule by ity of capsule 00:00: 05:59 mouth as [place] 00 :00 needed for Medical Pain Branch (scale 4-6) for up to 60 days. gabapentin 2021-09- No [id number] 300mg Take 1 [facility] 300 mg 0-15 12-15 capsule by ity of capsule 00:00: 05:59 mouth as [place] 00 :00 needed for Medical Pain Branch (scale 4-6) for up to 60 days. gabapentin 2021-09- No [id number] 300mg Take 1 [facility] 300 mg 0-15 12-15 capsule by ity of capsule 00:00: 05:59 mouth as [place] 00 :00 needed for Medical Pain Branch (scale 4-6) for up to 60 days. gabapentin 2021-09- No [id number] 300mg Take 1 [facility] 300 mg 0-15 12-15 capsule by ity of capsule 00:00: 05:59 mouth as [place] 00 :00 needed for Medical Pain Branch (scale 4-6) for up to 60 days. gabapentin 2021-09- No [id number] 300mg Take 1 [facility] 300 mg 0-15 12-15 capsule by ity of capsule 00:00: 05:59 mouth as [place] 00 :00 needed for Medical Pain Branch (scale 4-6) for up to 60 days. gabapentin 2021-09- No [id number] 300mg Take 1 [facility] 300 mg 0-15 12-15 capsule by ity of capsule 00:00: 05:59 mouth as [place] 00 :00 needed for Medical Pain Branch (scale 4-6) for up to 60 days. gabapentin 2021-09- No [id number] 300mg Take 1 [facility] 300 mg 0-15 12-15 capsule by ity of capsule 00:00: 05:59 mouth as [place] 00 :00 needed for Medical Pain Branch (scale 4-6) for up to 60 days. gabapentin 2021-09- No [id number] 300mg Take 1 [facility] 300 mg 0-15 12-15 capsule by ity of capsule 00:00: 05:59 mouth as [place] 00 :00 needed for Medical Pain Branch (scale 4-6) for up to 60 days. gabapentin 2021-09- No [id number] 300mg Take 1 [facility] 300 mg 0-15 12-15 capsule by ity of capsule 00:00: 05:59 mouth as [place] 00 :00 needed for Medical Pain Branch (scale 4-6) for up to 60 days. amitriptyli 2021-09- No [id number] 100mg Take 2 Univers ne 50 mg 0-15 10-23 tablets by ity of tablet 00:00: 04:59 mouth at [place] 00 :00 bedtime Medical for 7 Branch days. amitriptyli 2021-09 No [id number] 100mg Take 2 Univers ne 50 mg 0-15 10-23 tablets by ity of tablet 00:00: 04:59 mouth at [place] 00 :00 bedtime Medical for 7 Branch days. amitriptyli 2021-09- No [id number] 100mg Take 2 Univers ne 50 mg [...] at 0836, Routine, CV Intraproce dure vancomycin 2021-09 No CONTINUOUS Univers 1000 mg in 0-24 06- PRN, ity of NS 200 mL 13:30: 13:30 Starting [place] as RTU IV 55 :[address] [facility] Piggyback 06/24/22 Branch at 0830, Until 06/24/22 at 0830, Administer over 60 Minutes, CV Intraproce dure metFORMIN 2021-09 Yes 500mg 500 mg, Univ ers (GLUCOPHAGE 0-13 Oral, BID ity of ) tablet 22:00: MEALS, [place] 500 mg 00 First dose Medical on [facility] 06/23/22 at 1700, Until Discontinu ed, Routine metFORMIN 2021-09- No 500mg 500 mg, Uni vers (GLUCOPHAGE 0- 10- Oral, BID it y of ) tablet 22:00: 21:09 MEALS, [place] 500 mg 00 :41 First dose Medical on [facility] 06/23/22 at 1700, Until Discontinu ed, Routine amLODIPine 2021-09- No 5mg 5 mg, Unive rs (NORVASC) 0- 10- Oral, ity of tablet 5 mg 16:52: 17:31 ONCE, 1 [place] 00 :[place] dose, On [facility] 06/23/22 at 1200, Routine captopriL 2021-09- No 12.5mg 12.5 mg, U nivers (CAPOTEN) 0- 10- Oral, ity of tablet 12.5 04:45: 04:56 ONCE, 1 [place] mg 00 :00 dose, On [facility] 06/22/22 at 2345, Routine labetaloL 2021-09 No 5mg 5 mg, Slow U nivers (NORMODYNE) 0- 10- IV Push, ity of injection 5 03:45: 03:12 ONCE, 1 [place] mg 00 :00 dose, On [facility] 06/22/22 at 2245, Routine vitamin 2021-09- [...] mg 00 :01 First dose Medical on [facility] Branch 06/22/22 at 1130, Until Discontinu ed, [...] First dose Medi joyce 40 mg on [facility] Branch 06/22/22 at 0900, Until Discontinu ed, [...] :53 dose, On Medic al 0.9% (NS) [facility] Branch 100 mL IV 06/22/22 piggyback at [...] 5mg 5 mg, Unive rs (NORVASC) 0- 10-13 Oral, ity of tablet 5 mg 08:30: 16:53 DAILY, [place] 00 :37 First dose Medical on [facility] 06/22/22 at 0330, Until Discontinu ed, Routine melatonin 2021-09 Yes 3mg 3 mg, Univers (MELATIN) 0-12 Oral, QHS, ity of tablet 3 mg 02:00: First dose [place] 00 on [facility] 06/21/22 Branch at 2100, Until Discontinu ed, Routine melatonin 2021-09 No 3mg 3 mg, Univer s (MELATIN) 0-12 10-15 Oral, QHS, ity of tablet 3 mg 02:00: 21:09 First dose [place] 00 :41 on [facility] 06/21/22 [place] at 2100, Until Discontinu ed, Routine hydrOXYzine 2021-09 No 10mg 10 mg, Uni vers (ATARAX) 0- 10-12 Oral, ity of tablet 10 02:00: 01:08 ONCE, 1 [place] mg 00 :00 dose, On Medical [facility] 06/21/22 at 2100, Routine enoxaparin 2021-09 Yes 40mg 40 mg, Unive rs (LOVENOX) 0-11 Subcutaneo ity of injection 22:00: [place], [place]ILY, [place] 40 mg 00 First dose Medical on [facility] 06/21/22 at 1700, Until Discontinu ed, Routine enoxaparin 2021-09 No 40mg 40 mg, Univ ers (LOVENOX) 0-11 10-15 Subcutaneo ity of injection 22:00: 21:09 us, DAILY, [place] 40 mg 00 :41 First dose Medical on [facility] 06/21/22 at 1700, Until Discontinu ed, Routine hydroCHLORO 2021-09 No 25mg 25 mg, Uni vers thiazide 0-11 10-11 Oral, ity of (ESIDRIX) 19:00: 20:35 DAILY, [place] tablet 25 00 :31 First dose Medi joyce mg (after Branch last modificati on) on 06/21/22 at 1400, Until Discontinu ed, Routine Sliding 2021-09 Yes Subcutaneo Univ ers Scale 0-11 us, TID ity of Insulin - 17:00: MEALS+HS, [place] as Lispro 00 First dose Medical (HumaLOG) + on [facility] 06/21/22 Testing at 1200, Until Discontinu ed, Routine Sliding 2021-09- No Subcutaneo Uni vers Scale 0-11 10-15 us, TID ity of Insulin - 17:00: 21:09 MEALS+HS, [place] Lispro 00 :41 First dose Medical (HumaLOG) + on [facility] 06/21/22 Testing at 1200, Until Discontinu ed, Routine sulfur 2021-09- No [id number] 5mL 5 mL, Unive rs hexafluorid 0-11 10-11 Intravenou i ty of e microsphr 17:00: 17:00 s, ONCE, 1 [place] (LUMASON) 00 :00 dose, On Medica l injection 5 [facility] mL 06/21/22 at 1200, Routine
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 Restricted medication : WILTON NICHOLAS enalapril 2021-09 Yes 20mg 20 mg, Univer s (VASOTEC) 0-11 Oral, BID, ity of tablet 20 16:00: First dose [place] mg 00 on [facility] 06/21/22 Branch at 1100, Until Discontinu ed, Routine enalapril 2021-09- No 20mg 20 mg, Unive rs (VASOTEC) 0-11 10-15 Oral, BID, ity of tablet 20 16:00: 21:09 First dose [place] mg 00 :41 on [facility] 06/21/22 Branch at 1100, Until Discontinu [...] 34 Starting Medical injection 1 on Mon [facility] 06/21/22 at 1042, Until Discontinu ed, YOKO, Blood Glucose < or = 70 mg/dL and patient is unable to swallow or has mental changes. glucagon 2021-09- No 1mg 1 mg, Univers (GLUCAGEN 0-11 10-15 Intramuscu ity of DIAGNOSTIC 15:42: 21:09 lar, PRN, [place] KIT) 34 :41 Starting Medical injection 1 on [facility] mg 06/21/22 at 1042, Until 06/25/22 at 1609, YOKO, Blood Glucose < or = 70 mg/dL and patient is unable to swallow or has mental changes. acetaminoph 2021-09 Yes 650mg 650 mg, Un teo en 0-11 Oral, ity of (TYLENOL) 15:21: Q6HPRN, [place] tablet 650 10 Starting Medic al mg on [facility] 06/21/22 at 1021, Until Discontinu ed, Routine, Pain (scale 1-3) acetaminoph 2021-09- No 650mg 650 mg, U nivers en 0-11 -15 Oral, ity of (TYLENOL) 15:21: 21:09 Q6HPRN, [place] tablet 650 10 :41 Starting Medic al mg on [facility] 06/21/22 at 1021, Until 06/25/22 at 1609, Routine, Pain (scale 1-3) melatonin 2021-09- No 3mg 3 mg, Univer s (MELATIN) 06-21 Oral, ity of tablet 3 mg 09:15: 08:30 [place] dose, On Medical [facility] 06/21/22 at 0415, Routine aspirin 2021-09- No 325mg 325 mg, Unive rs E.C. 06-21 Oral, ity of (ECOTRIN) 08:30: 08:30 [place]CE, [place] 325 00 :00 dose, On Medic al mg [facility] 06/21/22 at 0330, STAT atenoloL 2021-09- No 100mg 100 mg, Univ ers (TENORMIN) 06-21 Oral, ity of tablet 100 03:00: 02:13 ONCE, 1 [place] mg 00 :00 dose, On [facility] 06/20/22 at 2200, Routine cloNIDine 2021-09- No .2mg 0.2 mg, Univ ers (CATAPRES) 006-21 Oral, ity of tablet 0.2 02:15: 02:14 ONCE, 1 [place] mg 00 :00 dose, On [facility] 06/20/22 at 2115, STAT iopamidol 2021-09- No [id number] 150mL 150 mL, Univers (ISOVUE 0-10 10-10 Intravenou ity o f 370-500 mL) 21:15: 21:15 s, ONCE, 1 [place] injection 00 :00 dose, On Medica l 150 mL [facility] 06/20/22 at 1615, Routine acetaminoph 2021-09- No 1000mg 1,000 mg, Univers en 0-10 10-10 Oral, ity of (TYLENOL) 21:00: 20:46 ONCE, [place] :00 dose, On Medical 1,000 mg [facility] 06/20/22 at 1600, YOKO piperacilli 2021-09- No 3.375g 3.375 g, Univers n-tazobacta 0-10 10-11 IV ity of m (ZOSYN) 19:30: 18:13 [place] 3.375 g in 00 :39 Q8H ABX, Medic al NaCl 0.9% First dose Bran ch (NS) 100 mL on [facility] MINI-BAG 06/20/22 at 1430, Until Discontinu [...] Medical Piggyback, Branch ONCE, 1 dose, On [facility] 06/20/22 at 1430, STAT tamsulosin 2021- [...] INSULIN) 100 unit/mL (3 mL) In insulin 0 Yes 15U QD Inject 15 [...] INSULIN) 100 unit/mL (3 mL) In insulin 2020-0 Yes 15U QD Inject 15 [...] by mouth 2 Center (two) times daily. [place] [id number] 2019-0 Yes 10mg QD Take [address] [facility] mg tablet 7-09 [facility]: daily. [address] 2019-0 Yes 10mg QD Take [address] [facility] mg tablet 7-09 by mouth [facility] 00:[facility]: daily. [address] 2019-0 Yes 10mg QD Take [address] [facility] mg tablet 7-09 by mouth [facility] 00:00: daily. [address] 2019-0 Yes 10mg QD Take [address] [facility] mg tablet 7-09 by mouth [facility] 00:00: daily. [address] 2019-0 Yes 10mg QD Take [address] [facility] mg tablet 7-09 by mouth [facility] 00:00: daily. [address] 2019-0 Yes 10mg QD Take [address] [facility] mg tablet 7-09 by mouth [facility] 00:00: daily. [address] 10 2019-0 Yes 10mg QD Take [address] [facility] mg tablet 7-09 by mouth [facility] 00:00: daily. [address] 2019-0 Yes 10mg QD Take [address] [facility] mg tablet 7-09 by mouth [facility] 00:00: daily. [address] 10 2019-0 Yes 10mg QD Take [address] [facility] mg tablet 7-09 by mouth [facility] 00:00: daily. [address] 2019-0 Yes 10mg QD Take [address] [facility] mg tablet 7-09 by mouth [facility] 00:00: daily. [address] 2019-0 Yes 10mg QD Take [address] [facility] mg tablet 7-09 by mouth [facility] 00:00: daily. [address] simvastatin 2020-0 Yes 20mg QD Take [address] [facility] (ZOCOR) 20 5-13 by mouth [facility] MG tablet 00:00: nightly. [address] tamsulosin 2020-0 Yes .4mg Take 0.[address] [facility] (FLOMAX) 5-13 mg by [facility] 0.4 mg Cap 00:00: mouth Medica l 24 hr 00 Daily Center capsule (1800). simvastatin 2020-0 Yes 20mg QD Take [address] [facility] (ZOCOR) 20 5-13 by mouth [facility] MG tablet 00:00: nightly. [address] tamsulosin 2020-0 Yes .4mg Take 0.[address] [facility] (FLOMAX) 5-13 mg by [facility] 0.4 mg Cap 00:00: mouth Medica l 24 hr 00 Daily Center capsule (1800). simvastatin 2020-0 Yes 20mg QD Take [address] [facility] (ZOCOR) 20 5-13 by mouth [facility] MG tablet 00:00: nightly. [address] tamsulosin 2020-0 Yes .4mg Take 0.[address] [facility] (FLOMAX) 5-13 mg by [facility] 0.4 mg Cap 00:00: mouth Medica l 24 hr 00 Daily Center capsule (1800). simvastatin 2020-0 Yes 20mg QD Take [address] [facility] (ZOCOR) 20 5-13 by mouth [facility] MG tablet 00:00: nightly. [address] tamsulosin 2020-0 Yes .4mg Take 0.[address] [facility] (FLOMAX) 5-13 mg by [facility] 0.4 mg Cap 00:00: mouth Medica l 24 hr 00 Daily Center capsule (1800). simvastatin 2020-0 Yes 20mg QD Take [address] [facility] (ZOCOR) 20 5-13 by mouth [facility] MG tablet 00:00: nightly. [address] tamsulosin 2020-0 Yes .4mg Take 0.[address] [facility] (FLOMAX) 5-13 mg by [facility] 0.4 mg Cap 00:00: mouth Medica l 24 hr 00 Daily Center capsule (1800). simvastatin 2020-0 Yes 20mg QD Take [address] [facility] (ZOCOR) 20 5-13 by mouth [facility] MG tablet 00:00: nightly. [address] tamsulosin 2020-0 Yes .4mg Take 0.[address] [facility] (FLOMAX) 5-13 mg by [facility] 0.4 mg Cap 00:00: mouth Medica l 24 hr 00 Daily Center capsule (1800). simvastatin 2020-0 Yes 20mg QD Take [address] [facility] (ZOCOR) 20 5-13 by mouth [facility] MG tablet 00:00: nightly. [address] tamsulosin 2020-0 Yes .4mg Take 0.[address] [facility] (FLOMAX) 5-13 mg by [facility] 0.4 mg Cap 00:00: mouth Medica l 24 hr 00 Daily Center capsule (1800). simvastatin 2020-0 Yes 20mg QD Take [address] [facility] (ZOCOR) 20 5-13 by mouth [facility] MG tablet 00:00: nightly. [address] tamsulosin 2020-0 Yes .4mg Take 0.[address] [facility] (FLOMAX) 5-13 mg by [facility] 0.4 mg Cap 00:00: mouth Medica l 24 hr 00 Daily Center capsule (1800). simvastatin 2020-0 Yes 20mg QD Take [address] [facility] (ZOCOR) 20 5-13 by mouth [facility] MG tablet 00:00: nightly. [address] tamsulosin 2020-0 Yes .4mg Take 0.[address] [facility] (FLOMAX) 5-13 mg by [facility] 0.4 mg Cap 00:00: mouth Medica l 24 hr 00 Daily Center capsule (1800). simvastatin 2020-0 Yes 20mg QD Take [address] [facility] (ZOCOR) 20 5-13 by mouth [facility] MG tablet 00:00: nightly. [address] tamsulosin 2020-0 Yes .4mg Take 0.[address] [facility] (FLOMAX) 5-13 mg by [facility] 0.4 mg Cap 00:00: mouth Medica l 24 hr 00 Daily Center capsule (1800). simvastatin 2020-0 Yes 20mg QD Take [address] [facility] (ZOCOR) 20 5-13 by mouth [facility] MG tablet 00:00: nightly. [address] tamsulosin 2020-0 Yes .4mg Take 0.[address] [facility] (FLOMAX) 5-13 mg by [facility] 0.4 mg Cap 00:00: mouth Medica l 24 hr 00 Daily Center capsule (1800). omeprazole 2020-0 Yes 20mg QD Take [address] (PRILOSEC) 5-04 by mouth [facility] 20 MG 00:00: daily. Medical capsule 00 [place] omeprazole 2020-0 Yes 20mg QD Take [address] (PRILOSEC) 5-04 by mouth [facility] 20 MG 00:00: daily. Medical capsule 00 [place] omeprazole 2020-0 Yes 20mg QD Take [address] (PRILOSEC) 5-04 by mouth [facility] 20 MG 00:00: daily. Medical capsule 00 [place] omeprazole 2020-0 Yes 20mg QD Take [address] (PRILOSEC) 5-04 by mouth [facility] 20 MG 00:00: daily. Medical capsule 00 [place] omeprazole 2020-0 Yes 20mg QD Take [address] (PRILOSEC) 5-04 by mouth [facility] 20 MG 00:00: daily. Medical capsule 00 [place] omeprazole 2020-0 Yes 20mg QD Take [address] (PRILOSEC) 5-04 by mouth [facility] 20 MG 00:00: daily. Medical capsule 00 [place] omeprazole 2020-0 Yes 20mg QD Take [address] (PRILOSEC) 5-04 by mouth [facility] 20 MG 00:00: daily. Medical capsule 00 [place] omeprazole 2020-0 Yes 20mg QD Take [address] (PRILOSEC) 5-04 by mouth [facility] 20 MG 00:00: daily. Medical capsule 00 [place] omeprazole 2020-0 Yes 20mg QD Take [address] (PRILOSEC) 5-04 by mouth [facility] 20 MG 00:00: daily. Medical capsule 00 [place] omeprazole 2020-0 Yes 20mg QD Take [address] (PRILOSEC) 5-04 by mouth [facility] 20 MG 00:00: daily. Medical capsule 00 [place] omeprazole 2020-0 Yes 20mg QD Take [address] (PRILOSEC) 5-04 by mouth [facility] 20 MG 00:00: daily. Medical capsule 00 [place] fLUoxetine 2019-0 Yes 20mg QD Take [address] (PROZAC) 20 8-23 by mouth [facility] MG capsule 00:00: daily. Medic al 00 [place] melatonin 3 2019-0 Yes 3mg QD Take [address] mg Tab 8-23 by mouth [facility] tablet 00:00: nightly. [address] 3 2019-0 Yes 3mg QD Take [address] mg Tab 8-23 by mouth [facility] tablet 00:00: nightly. [address] fLUoxetine 2019-0 Yes 20mg QD Take [address] (PROZAC) 20 8-23 by mouth Luke [facility] MG capsule 00:00: daily. [address] melatonin 3 0 Yes 3mg QD Take [address] mg Tab 8-23 by mouth [facility] tablet 00:00: nightly. [address] fLUoxetine 2019-0 Yes 20mg QD Take [address] (PROZAC) 20 8-23 by mouth Luke s MG capsule 00:00: daily. [address] 3 0 Yes 3mg QD Take [address] mg Tab 8-23 by mouth [facility] tablet 00:00: nightly. [address] fLUoxetine 2018-0 Yes 20mg QD Take [address] (PROZAC) 20 8-23 by mouth Luke s MG capsule 00:00: daily. [address] 3 0 Yes 3mg QD Take [address] mg Tab 8-23 by mouth [facility] tablet 00:00: nightly. [address] fLUoxetine 2018-0 Yes 20mg QD Take [address] (PROZAC) 20 8-23 by mouth Luke s MG capsule 00:00: daily. [address] 3 0 Yes 3mg QD Take [address] mg Tab 8-23 by mouth [facility] tablet 00:00: nightly. [address] fLUoxetine 2019-0 Yes 20mg QD Take [address] (PROZAC) 20 8-23 by mouth Luke s MG capsule 00:00: daily. [address] 3 2018-0 Yes 3mg QD Take [address] mg Tab 8-23 by mouth [facility] tablet 00:00: nightly. [address] fLUoxetine 2019-0 Yes 20mg QD Take [address] (PROZAC) 20 8-23 by mouth Luke s MG capsule 00:00: daily. [address] 3 2018-0 Yes 3mg QD Take [address] mg Tab 8-23 by mouth [facility] tablet 00:00: nightly. [address] fLUoxetine 2019-0 Yes 20mg QD Take [address] (PROZAC) 20 8-23 by mouth Luke s MG capsule 00:00: daily. Medic al 00 [place] melatonin 3 Yes 3mg QD Take [address] mg Tab 8-23 by mouth [facility] tablet 00:00: nightly. [address] fLUoxetine Yes 20mg QD Take [address] (PROZAC) 20 8-23 by mouth Luke s MG capsule 00:00: daily. Medic al 00 [facility] 3 Yes 3mg QD Take [address] mg Tab 8-23 by mouth [facility] tablet 00:00: nightly. [address] fLUoxetine Yes 20mg QD Take [address] (PROZAC) 20 8-23 by mouth Luke s MG capsule 00:00: daily. Medic al 00 [facility] 3 Yes 3mg QD Take [address] mg Tab 8-23 by mouth [facility] tablet 00:00: nightly. [address] fLUoxetine Yes 20mg QD Take [address] (PROZAC) 20 8-23 by mouth Luke s MG capsule 00:00: daily. Medic al 00 [place] bisacodyl Yes 10 mg = 1 Mem oria 10 mg 6-19 supp, TN, l rectal 21:04: Daily, PRN Elyse nn [...] sennosides, Yes 8.6 mg = 1 Memoria ALF 8.6 MG 6-19 tab, PO, l Oral Tablet 21:04: Q12H, 0 Her antonio 00 Refill(s) levofloxaci Yes 500 mg = 1 Memoria n 500 mg 6-19 tab, PO, l oral tablet 21:04: [id number], 0 [place] 00 Refill(s) Humalog No Notes: Memoria 6-18 (Same as: l 16:30: Humalog ) [place] 00 Roll in palms of hands gently; [...] s with feeding tube less than 14 Serbian (Dobhoff, J-tube etc) and pediatric and patients. With food and full glass of water insulin, No Notes: Memoria isophane 6-16 Roll in l 23:02: palms of [place] 00 hands gently; Do not shake vigorously [...] Insulin, No 4 unit, Memori a Aspart, 6-16 Route: l Human 21:30: SUB-Q, [place] 00 TID-Before Meals, Dosing Weight 81.9, kg, Start date: 02/24/18 16:30:00 CDT, Duration: 30 day, Stop date: 03/26/18 11:30:00 CDT Lasix 2017-0 No Notes: Memoria 6-16 (Same as: l 20:54: Lasix) MEDICATION WASTE Product Size: 40 mg Product Wasted: ___ mg Potassium 2017- No Notes: Memori a Chloride -16 (Same as: l 12:00: KCL) Infuse over 2 hours. Levofloxaci 2017- No 500 mg, 1 M emoria n -16 tab, l 11:49: Route: PO, [place] 00 Drug form: TAB, [id number], Dosing Weight 81.9, kg, Priority: NOW, Start date: 02/24/18 6:49:00 CDT, Duration: 5 day, Stop date: 02/28/18 6:49:00 CDT, ABX Indication : Urinary Tract Infection potassium 2017- No 40 mEq, 2 Mem oria chloride 20 -16 tab, l mEq oral 11:47: Route: PO, Her antonio tablet, 00 Drug form: extended ERTAB, release Q4H, Dosing Weight 81.9, kg, Priority: NOW, Start date: 02/24/18 6:47:00 CDT, Duration: 30 day, Stop date: 03/26/18 4:00:00 CDT Magnesium 2017-0 No Notes: Memori a Sulfate 40 16 WASTE: F/P l MG/ML 11:47: - Sink; E [place] Injection 00 - [place] [facility]ash [facility] Potassium 2017-0 No Notes: Memori a Chloride 6-16 (Same as: l 07:49: KCL) [place] 00 Infuse over 2 hours. Potassium 2017-0 No Notes: Memori a Chloride 6-16 (Same as: l 07:47: K-Dur 20) "Do Not Crush" For patients unable to swallow tablet, dissolve in one half glass of water. Allow about 2 minutes for the tablets to disintegra te. Stir before giving to prepare slurry and administer . Please exclude Patient s with feeding tube less than 14 Serbian (Elisa Irby-tube etc) and pediatric and patients. With food and full glass of water potassium No Notes: Memori a phosphate-s 6-16 (Same as: l odium 07:28: Phos-NaK) phosphate 00 Each 1.5 250 mg-280 gm pkt has mg-160 mg 250mg oral powder phosphorou for s. Mix reconstitut w/2.5oz ion water and stir. Potassium No Notes: Memori a Chloride 6-16 (Same as: l 07:28: KCL) Infuse over 2 hours. Magnesium No Notes: Memori a Sulfate 6-16 WASTE: F/P l 07:28: - Sink; E - [facility] Trash Bin sodium No 15 mmol, 5 Memor ia phosphate 6-16 mL, Route: l 07:28: IVPB, PRN, Dosing Weight 81.9, kg, PRN Abnormal Lab Result, For NON-ICU Patients Only., Start date: 02/24/18 2:28:00 CDT, Duration: 30 day, Stop date: 03/26/18 2:27:00 CDT potassium No Notes: Memori a phosphate 6-16 (Same as: l 07:28: K [place] 00 Phosphate. ) 1 mMol phoshate has 1.47 mEq potassium Infuse over 4 hours Calcium No Notes: Memoria Gluconate 6-16 WASTE: F/P l 07:28: - Sink; E - [facility] Trash [facility] Magnesium No Notes: Memori a Oxide 6-16 (Same as: l 07:28: Mag-Ox [place] 00 400) Magnesium oxide 549ly=173b g elemental magnesium Dose=____m g magnesium oxide (___mg elemental magnesium) Bisacodyl No Notes: Memori a 6-15 (Same As: l 14:04: Dulcolax, [place] 00 Bisco-Lax) Levofloxaci No Notes: Do M emoria n 6-15 not give l 14:00: w/antacids [place] 00 , dairy pdt & minerals Take [...] No 10 mg, Memori a 6-13 Route: TN, l 14:02: Drug form: SUPP, ONCE, Dosing [...] phosphate 6-13 10 mL, l 05:41: Route: IVPB, PRN, Dosing Weight 81.9, kg, PRN [...] 6-13 (Same as: l 05:41: Potassium [place] 00 Chloride) Calcium No Notes: Memoria Carbonate 02-21 (Same As: l 500 MG 05:41: Tums) [place] Chewable 00 Calcium Tablet Carbonate 500 mg = 200 mg elemental calcium Dose = mg calcium carbonate ( mg elemental calcium) Magnesium No Notes: Memori a Sulfate 02-21 WASTE: F/P l 05:41: - Sink; E [place] 00 - [facility] Trash Bin potassium No Notes: Memori a phosphate-s 02-21 (Same as: l odium 05:41: Phos-NaK) [place] phosphate 00 Each 1.5 250 mg-280 gm pkt has mg-160 mg 250mg oral powder phosphorou for s. Mix reconstitut w/2.5oz ion water and stir. Calcium No Notes: [facility]oria Gluconate 02-21 WASTE: F/P l 05:41: - Sink; E [place] 00 - [facility] Trash Bin Magnesium No Notes: Memori a Oxide 02-21 (Same as: l 05:41: Mag-Ox [place] 00 400) Magnesium oxide 085sc=402o g elemental magnesium Dose=____m g magnesium oxide (___mg elemental magnesium) Nicardipine No Notes: Dirk reji 02-21 Same as: l 05:40: Cardene [place] 00 Concentrat ion: (0.1 mg/ 1 ml) Sodium No 1,000 mL, Memori a Chloride 02-21 Rate: 75 l 0.9% IV 05:40: ml/hr, [place] 1,000 mL 00 Infuse over: 13.3 hr, Route: IV, Dosing Weight 81.9 kg, Total Volume: 1,000, Start date: 02/21/18 0:40:00 CDT, Duration: 30 day, Stop date: 03/23/18 0:39:00 CDT, 1.95, m2 Vancomycin No 2001 mg: Me moria 02-21 infuse l 05:00: [...] ia - (Same as: l 02:00: Prinivil, [place] 00 Zestril) atorvastati No Notes: Dirk reji n 02-21 (Same As: l 02:00: Lipitor) [place] 00 heparin No Notes: Memoria sodium, 6-12 porcine l porcine 21:00: heparin [place] 2500 UNT/ML 00 Injectable Solution Tramadol No 50 mg, 1 Memor ia 02-20 tab, l 19:45: Route: PO, Drug form: TAB, Q6H, Dosing Weight 81.9, kg, PRN Pain Score 4-6, Start date: 02/20/18 14:45:00 CDT, Duration: 30 day, Stop date: 03/22/18 14:44:00 CDT Acetaminoph No Notes: Do M emoria en 12 not exceed l 19:42: 4 gm/day. [place] 00 (Same as: Tylenol) Insulin No Notes: Memoria Lispro 02-20 (Same as: l 14:44: Humalog ) Roll in palms of hands gently; Do not shake `vigorousl y. "Single Patient Use Only " WASTE: F/P - Black; E - [facility] Trash Bin Stable for 28 days at room temperatur e. Expires in days from ____Date Glucagon No 1 mg, Memoria 6-12 Route: IM, l 14:44: Drug form: [place] 00 PDR/INJ, PRN, Dosing Weight 81.9, kg, PRN Blood Glucose Results, Start date: 02/20/18 9:44:00 CDT, Duration: 30 day, Stop date: 03/22/18 9:43:00 CDT Dextrose No 25 gm, 50 Idrk reji 50% Syringe 6-12 mL, Route: l 14:44: IVP, Drug Form: INJ, Dosing Weight 81.9, kg, PRN, PRN Blood Glucose Results, Start date: 02/20/18 9:44:00 CDT, Duration: 30 day, Stop date: 03/22/18 9:43:00 CDT Fluoxetine 2017- No Notes: Memor ia 6-12 (Same as: l 14:00: Prozac, [place] 00 Sarafem) Zocor No Notes: Memoria 6-12 [...] sugammadex No Route: IV, M emoria (ANES) 6 Drug form: l 14:34: SOLN, [place] 00 ONCE, Stop date: 02/19/18 9:34:00 CDT [...] Not Crush) sennosides, No Notes: Dirk reji ALF 02-19 (Same as: l 14:00: Senokot) Levetiracet [...] ONCE, Stop date: 02/19/18 8:40:00 CDT Sodium 2018-0 No Route: IV, Memor ia Chloride 6-11 Total l 0.9% IV 13:32: Volume: [place] (ANES) 1000 00 1,000, mL Start date: 02/19/18 8:32:00 CDT, Stop date: 02/19/18 9:32:00 CDT Hydralazine 2018-0 No 10 mg, Dirk reji 611 Route: l 13:29: IVP, [place] 00 Q20Min, Dosing Weight 81.9, kg, PRN Elevated BP, Start date: 02/19/18 8:29:00 CDT, Duration: 2 doses or times, Stop date: Limited # of times Labetalol 2018-0 No 10 mg, Memori a 6 Route: l 13:29: IVP, [place] 00 Q5Min, Dosing Weight 81.9, kg, PRN Elevated BP, Start date: 02/19/18 8:29:00 CDT, Duration: 5 doses or times, Stop date: Limited # of times Oxycodone 2018-0 No 5 mg, Memoria 6 Route: PO, l 13:29: Drug form: [place] 00 TAB, Q4H, Dosing Weight 81.9, kg, [...] 50 Memoria 6-11 microgram, l 13:29: Route: [place] 00 IVP, Q5Min, Dosing Weight 81.9, kg, PRN Pain Score 7-10, Priority: Routine, Start date: 02/19/18 8:29:00 CDT, Duration: 2 doses or times, Stop date: Limited # of times Hydromorpho 2017-0 No 0.5 mg, Mem oria ne 02-19 Route: l 13:29: IVP, [place] Q5Min, Dosing Weight 81.9, kg, PRN Pain Score 7-10, Start date: 02/19/18 8:29:00 CDT, Duration: 4 doses or times, Stop date: Limited # of times Ondansetron 2018-0 No 4 mg, Memor ia 02-19 Route: l 13:29: IVP, ONCE, Dosing Weight 81.9, kg, PRN Nausea & Vomiting, Start date: 02/19/18 8:29:00 CDT Naloxone 0 No 0.4 mg, Memori a 02-19 Route: [...] day, Stop date: 03/21/18 8:28:00 CDT Sodium 0 No Route: IV, Memor ia Chloride 02-19 Total l 0.9% IV 13:06: Volume: [place] (ANES) 500 00 500, Start mL date: 02/19/18 8:06:00 CDT, Stop date: 02/19/18 9:06:00 CDT propofol 0 No Route: IV, Mem oria (ANES) 10 02-19 Drug form: l mg 12:55: INJ, Start [place] 00 date: 02/19/18 7:55:00 CDT, Stop date: 02/19/18 8:55:00 CDT remifentani 0 No Route: IV, Memoria l (ANES) 1 6-11 Drug form: l mg 12:55: INJ, Start [place] date: 02/19/18 7:55:00 CDT, Stop date: 02/19/18 8:55:00 CDT Lactated 2017-0 No Route: IV, Mem oria Ringers 6-11 [...] 6-11 mL, Route: l 10:44: IVP, Drug [place] form: INJ, Q1H, Dosing Weight 82.8, kg, PRN Hypertensi on, Start date: 02/19/18 5:44:00 CDT, Duration: 30 day, Stop date: 03/21/18 5:43:00 CDT Hydralazine 0 No Notes: Dirk reji 6-11 (Same as: l 10:44: Apresoline [place] ) Push over 5 minutes potassium No 15 mmol, Dirk reji phosphate 6-11 Route: l 10:44: IVPB, PRN, [place] 00 Dosing Weight 82.8, kg, PRN Abnormal Lab Result, Start date: 02/19/18 5:44:00 CDT, Duration: 30 day, Stop date: 03/21/18 5:43:00 CDT, FOR ICU USE ONLY sodium 2018-0 No 15 mmol, Memoria phosphate 6- Route: l 10:44: IVPB, PRN, [place] 00 Dosing Weight 82.8, kg, PRN Abnormal Lab Result, Start date: 02/19/18 5:44:00 CDT, Duration: 30 day, Stop date: 03/21/18 5:43:00 CDT, FOR ICU USE ONLY Potassium 2018-0 No 20 mEq, Memor ia Chloride 6 Route: PO, l 10:44: Drug form: [place] 00 ERTAB, PRN, Dosing Weight 82.8, kg, [...] Sulfate 6-11 Route: l 10:44: IVPB, PRN, [place] 00 Dosing Weight 82.8, kg, PRN Abnormal Lab Result, Start date: 02/19/18 5:44:00 CDT, Duration: 30 day, Stop date: 03/21/18 5:43:00 CDT, FOR ICU USE ONLY Magnesium 2018-0 No 800 mg, Memor ia Oxide 6-11 Route: PO, l 10:44: PRN, [place] 00 Dosing Weight 82.8, kg, PRN Abnormal Lab Result, FOR ICU USE ONLY, Start date: 02/19/18 5:44:00 CDT, Duration: 30 day, Stop date: 03/21/18 5:43:00 CDT potassium 2018- No 2 pkt, Memori a phosphate-s 6-11 [...] (Same As: l 500 MG 09:36: Tums) [place] Chewable 00 Calcium Tablet Carbonate 500 mg = 200 mg elemental calcium Dose = mg calcium carbonate ( mg elemental calcium) sodium No 15 mmol, 5 Memor ia phosphate 6-11 mL, Route: l 09:36: IVPB, PRN, [place] 00 Dosing Weight 82.8, kg, PRN Abnormal Lab Result, Start date: 02/19/18 4:36:00 CDT, Duration: 30 day, Stop date: 03/21/18 4:35:00 CDT, FOR ICU USE ONLY potassium No Notes: Memori a phosphate 6-11 (Same as: l 09:36: K [place] 00 Phosphate. ) 1 mMol phoshate has 1.47 mEq potassium Infuse over 4 hours Potassium No Notes: Memori a Chloride 6-11 (Same as: l 09:36: Potassium [place] Chloride) potassium No Notes: Memori a phosphate-s 6-11 (Same as: l odium 09:36: Phos-NaK) [place] phosphate 00 Each 1.5 250 mg-280 gm pkt has mg-160 mg 250mg oral powder phosphorou for s. Mix reconstitut w/2.5oz ion water and stir. Magnesium No Notes: Memori a Sulfate 02-19 WASTE: F/P l 09:36: - Sink; E - [facility] Trash [facility] Magnesium No Notes: Memori a Oxide 02-19 (Same as: l 09:36: Mag-Ox [place] 00 400) Magnesium oxide 069gl=504v g elemental magnesium Dose=____m g magnesium oxide (___mg elemental magnesium) Sodium No 1,000 mL, Memori a Chloride 02-19 1,000 l 0.9% 09:34: ml/hr, [place] (Bolus) IV 00 Infuse Over: 1 hr, [...] ___ mg Bisacodyl No Notes: Memori a - (Same As: l 09:27: Dulcolax, [place] Bisco-Lax) Acetaminoph No 1 tab, Dirk reji [...] day, Stop date: 03/21/18 4:26:00 CDT Sodium 2018-0 No 1,000 mL, Memori a Chloride 6-11 Rate: 50 l 0.9% IV 09:27: ml/hr, [place] 1,000 mL 00 Infuse over: 20 hr, Route: IV, Dosing Weight 82.8 kg, Total Volume: 1,000, Start date: 02/19/18 4:27:00 CDT, Duration: 30 day, Stop date: 03/21/18 4:26:00 CDT, 1.96, m2 Magnesium 2018- No 2 gm, Memoria Sulfate 6-11 Route: l 09:17: IVPB, Drug [place] 00 form: INJ, ONCE, Dosing Weight 82.8, kg, Start date: 02/19/18 4:17:00 CDT, Stop date: 02/19/18 4:17:00 CDT Potassium 2017- No Notes: Memori a Chloride 6-11 (Same as: l 1.33 MEQ/ML 09:17: Potassium H [place] Oral 00 Chloride) Solution Saline No Notes: Memoria Flush 0.9% 6-11 (Same as: l 08:15: BD [place] 00 Posiflush) PEPCID Yes prn Univers MG ORAL TAB 6-11 ity of 04:52: [address] B COMPLEX 1 Yes None Univer s ORAL TAB 6-11 Entered ity of 04:52: [address] M-VIT ORAL Yes None Univers 6-11 Entered ity of 04:52: [address] PEPCID 20 Yes prn Univers MG ORAL TAB 6-11 ity of 04:52: [address] B COMPLEX 1 Yes None Univer s ORAL TAB 6-11 Entered ity of 04:52: [address] M-VIT ORAL Yes None Univers 6-11 Entered ity of 04:52: [address] PEPCID 20 Yes prn Univers MG ORAL TAB 6-11 ity of 04:52: [address] 1 Yes None Univer s ORAL TAB 6-11 Entered ity of 04:52: [address] M-VIT ORAL Yes None Univers 6-11 Entered ity of 04:52: [address] 20 Yes prn [facility] MG ORAL TAB 6-11 ity of 04:52: [address] 1 Yes None Univer s ORAL TAB 6-11 Entered ity of 04:52: [address] M-VIT ORAL Yes None Univers 6-11 Entered ity of 04:52: [address] 20 Yes prn [facility] MG ORAL TAB 6-10 ity of 23:52: [place] [id number] Yes None Univer s ORAL TAB 6-10 Entered ity of 23:52: [address]-VIT ORAL Yes None Univers 6-10 Entered ity of 23:52: [address] 20 Yes prn [facility] MG ORAL TAB 6-10 ity of 23:52: [place] [id number] Yes None Univer s ORAL TAB 6-10 Entered ity of 23:52: [address] M-VIT ORAL Yes None Univers 6-10 Entered ity of 23:52: [address] Levetiracet Yes 500 mg = 1 [...] emoria en 6-05 0 l 15:03: Refill(s) [place] 00 nebivolol 5 Yes 30 mg = 6 M emoria mg oral 6-05 tab, PO, l tablet 15:03: Daily, 0 [place] 00 Refill(s) lisinopril Yes 20 mg = [...] PO, l tablet 15:03: Daily, 0 [place] Refill(s) Potassium No Notes: Memori a Chloride 6-05 (Same as: l 14:56: K-Dur 20) [place] 00 "Do Not Crush" For patients unable to swallow tablet, dissolve in one half glass of water. Allow about 2 minutes for the tablets to disintegra te. Stir before giving to prepare slurry and administer . Please exclude Patient s with feeding tube less than 14 Serbian (Dobhoff, J-tube etc) and pediatric and patients. [...] s with feeding tube less than 14 [place] (Dobhoff, J-tube etc) and pediatric and patients. With food and full glass of water Norvasc No Notes: Memoria 6-04 (Same as: l 14:00: Norvasc) [place] 00 potassium No Notes: Memori a chloride [...] s with feeding tube less than 14 Serbian (Dobhoff, J-tube etc) and pediatric and patients. With food and full glass of water Clonidine No Notes: Memori a - (Same As: l 21:00: Catapres) Sodium 2017- Yes 3 gm = 3 [facility]oria Chloride 6- tab, [place], l 1000 MG 18:08: TID-Before Herm roxanne Oral Tablet 00 Meals, # 63 tab, 0 Refill(s) Hydralazine Yes PO, Q6H, 0 Memoria Hydrochlori 02-11 Refill(s) l de 100 MG 18:08: [place] Oral Tablet amLODIPine No 5 mg = [...] Potassium 2017-0 No Notes: Memori a Chloride 6-01 (Same [...] ia 5-31 (Same as: l 14:00: Prinivil, [place] 00 Zestril) Bystolic No Notes: [facility]oria 5-31 (same as: l 14:00: Bystolic) [place] 00 Nicardipine No Notes: Dirk reji 5-31 Same as: l 08:09: Cardene [place] 00 Concentrat ion: (0.1 mg/ 1 ml) nebivolol No 10 mg = 1 Mem oria 10 MG Oral 5-31 tab, PO, l Tablet 03:55: Daily, # [place] [Bystolic] 00 30 tab, 0 Refill(s) Bystolic No PO, Daily, Mem oria 5-31 0 l 03:55: Refill(s) [place] Coreg No Notes: Memoria 5-30 Give with l 22:53: food. [place] 00 (Same As: Coreg) Lisinopril No Notes: Memor ia 30 (Same as: l 13:59: Prinivil, [place] 00 Zestril) Insulin No Notes: [facility] Glargine 30 Same as: l 100 UNT/ML 13:58: Lantus) Do H ermann Injectable 00 not hold Solution insulin [Lantus] without contacting prescriber WASTE: F/P - Black; E - [facility] Insulin No 60 units) Dirk reji regular 30 WASTE: F/P l 13:57: - Black; E [place] - [facility] Stable for 28 [...] 30 Route: IM, l 13:57: Drug form: [place] 00 PDR/INJ, PRN, Dosing Weight 82.8, kg, PRN Blood Glucose Results, Start date: 02/07/18 8:57:00 CDT, Duration: 30 day, Stop date: 03/09/18 8:56:00 CDT heparin No Notes: Memoria sodium, 5-30 porcine l porcine 13:00: heparin [place] 2500 UNT/ML 00 Injectable Solution Insulin No Notes: [facility] Glargine 5-30 Same as: l 100 UNT/ML 02:00: Lantus) Do H ermann Injectable 00 not hold Solution insulin [Lantus] without contacting prescriber WASTE: F/P - Black; E - [facility] Zocor No Notes: [facility] 5-30 (Same as: l 02:00: Zocor) [place] 00 Melatonin 3 No Notes: Dirk reji MG Extended 5-30 (Same as: l Release 02:00: Melatonin) Herm roxanne Tablet 00 Levetiracet No Notes: Dirk reji am 5-29 (Same l 23:00: as:Keppra) [place] Sodium No 3 gm, 3 Memoria Chloride 5-29 tab, l 1000 MG 18:00: Route: [place], Herm roxanne Oral Tablet 00 Drug form: TAB, QID, Dosing Weight 82.8, kg, Start date: 02/06/18 13:00:00 CDT, Duration: 30 day, Stop date: 03/08/18 9:00:00 CDT acetaminoph No Notes: Max Memoria en 5-29 acetaminop l 14:48: hen = [place] 00 4000mg/day (4 gm/day). (Same as: Tylenol) Bystolic No Notes: [facility] 5-29 (same as: l 14:00: Bystolic) [place] Protonix No Notes: [facility] 5-29 Tablet l 14:00: should not [place] be chewed or crushed. (Same as: Protonix) Flomax No Notes: [facility] 5-29 (Same As: l 14:00: Flomax) [place] "Do Not Crush" Tylenol No 100.4 F, Memor ia 5-29 Start l 13:18: date: [place] 00 02/06/18 8:18:00 CDT, Duration: 30 day, Stop date: 03/08/18 8:17:00 CDT Keppra No Notes: [facility] 5-29 Same as l 11:00: Keppra Mix [place] with 100 mL NS, LR or D5W MEDICATION WASTE Product Size: 500 mg Product Wasted: ___ mg lisinopril No 40 mg = 1 Me moria 40 mg oral 5-29 tab, PO, l tablet 03:54: Daily [place] 00 Fluoxetine Yes 20 mg = 1 Me moria 20 MG Oral 5-29 cap, PO, l Capsule 03:54: Daily [place] [Prozac] 00 gabapentin Yes 300 mg = 1 M emoria 300 MG Oral 5-29 cap, PO, l Capsule 03:54: TID [place] 00 amitriptyli No 100 mg = 1 [...] PO, l Tablet 03:54: Bedtime [place] [Zocor] nebivolol No 10 mg = 1 Mem oria 10 MG Oral 5-29 tab, PO, l Tablet 03:54: Daily [place] [Bystolic] Tamsulosin Yes 0.4 mg = 1 M [...] Memoria 5-29 (Same as: l 02:00: Colace) sennosides, No Notes: Dirk reji ALF -29 (Same as: l 02:00: Senokot) Tylenol No Notes: Do Memor ia -29 not exceed l 01:30: 4 gm/day. [place] 00 (Same as: Tylenol) Labetalol No 10 mg, 2 Dirk reji 5-29 mL, Route: l 01:30: IVP, Drug form: INJ, Q1H, Dosing Weight 80, kg, PRN Hypertensi on, Start date: 02/05/18 20:30:00 CDT, Duration: 30 day, Stop date: 03/07/18 20:29:00 CDT Hydralazine No Notes: Dirk reji -29 (Same as: l 01:30: Apresoline ) Push over 5 minutes Calcium No Notes: [facility] Carbonate 02-06 (Same As: l 500 MG 01:25: Tums) Calcium Tablet Carbonate 500 mg = 200 mg elemental calcium Dose = mg calcium carbonate ( mg elemental calcium) Magnesium No Notes: Memori a Oxide 02-06 (Same as: l 01:25: Mag-Ox 400) Magnesium oxide 569mt=559l g elemental magnesium Dose=____m g magnesium oxide [...] phosphate 5-29 (Same as: l 01:25: K [place] 00 Phosphate. ) 1 mMol phoshate has 1.47 mEq potassium Infuse over 4 hours sodium No 30 mmol, Memoria phosphate 5-29 10 mL, l 01:25: Route: [place] 00 IVPB, PRN, Dosing Weight 80, kg, PRN Abnormal Lab Result, Start date: 02/05/18 20:25:00 CDT, Duration: 30 day, Stop date: 03/07/18 20:24:00 CDT, FOR ICU USE ONLY Sodium No 1,000 mL, Memori a Chloride 5-29 1,000 l 0.9% 01:21: ml/hr, [place] (Bolus) IV 00 Infuse Over: 1 hr, Route: IV, 1,000, Drug form: INJ, ONCE, Priority: STAT, Dosing Weight 80 kg, Start date: 02/05/18 20:21:00 CDT, Stop date: 02/05/18 20:21:00 CDT Sodium No 1,000 mL, Memori a Chloride - Rate: 50 l 0.9% IV 01:21: ml/hr, [place] 1,000 mL 00 Infuse over: 20 hr, [...] No 6.25 gm, Memor ia 50% Syringe -28 12.5 mL, l 23:05: Route: [place] 00 [...] 0.9% -28 (Same as: l 23:05: BD [place] 00 Posiflush) Sodium No 10,000 mL, Memor ia Chloride - Rate: 50 l 0.9% IV 23:05: ml/hr, [place] [address]54 mL 00 Infuse over: 200 hr, Route: IV, Dosing Weight 80 kg, Total Volume: 10,000, Start date: 02/05/18 18:05:00 CDT, Duration: 30 day, Stop date: 03/07/18 18:04:00 CDT Acetaminoph No Notes: Do M emoria en 325 MG / -28 not exceed l Hydrocodone 23:05: 4gm/day of [place] Bitartrate 00 acetaminop 10 MG Oral hen. (Same Tablet as: [place] 325/10) Acetaminoph No Notes: Dirk reji en 325 MG / -28 (Same as: l Hydrocodone 23:05: [place] E[place]se nn Bitartrate 00 325/5) Do 5 MG Oral not exceed Tablet 4gm/day of acetaminop hen. Morphine No Notes: Memoria -28 (Same l 23:05: as:MORPhin [place] 00 e Sulfate) Bisacodyl No Notes: Memori a -28 (Same As: l 23:05: Dulcolax, [place] 00 Bisco-Lax) Keppra No Notes: [facility] 02-05 Same as l 22:43: Keppra Mix [place] 00 with 100 mL NS, LR or D5W MEDICATION WASTE Product Size: 500 mg Product Wasted: ___ mg Cardene 40 No Notes: Memor ia mg in NS 02-05 Same as: l 200 mL 22:37: Cardene [place] (Titrate.) 00 Concentrat IV 20 mg ion: (0.1 mg/ 1 ml) lisinopriL 2014-09 Yes 40mg Take [address] (PRINIVIL,Z 2-21 by mouth Luke s ESTRIL) 40 00:00: Daily Medica l MG tablet 00 (1800). [place] lisinopriL 2014-09 Yes 40mg Take [address] (PRINIVIL,Z 2-21 by mouth Luke s ESTRIL) 40 00:00: Daily Medica l MG tablet 00 (1800). [place] lisinopriL 2014-09 Yes 40mg Take [address] (PRINIVIL,Z 2-21 by mouth Luke s ESTRIL) 40 00:00: Daily Medica l MG tablet 00 (1800). [place] lisinopriL 2014-09 Yes 40mg Take [address] (PRINIVIL,Z 2-21 by mouth Luke s ESTRIL) 40 00:00: Daily Medica l MG tablet 00 (1800). [place] lisinopriL 2014-09 Yes 40mg Take [address] (PRINIVIL,Z 2-21 by mouth Luke s ESTRIL) 40 00:00: Daily Medica l MG tablet 00 (1800). [place] lisinopriL 2014-09 Yes 40mg Take [address] (PRINIVIL,Z 2-21 by mouth Luke s ESTRIL) 40 00:00: Daily Medica l MG tablet 00 (1800). [place] lisinopriL 2014-09 Yes 40mg Take [address] (PRINIVIL,Z 2-21 by mouth Luke s ESTRIL) 40 00:00: Daily Medica l MG tablet 00 (1800). [place] lisinopriL 2014-09 Yes 40mg Take [address] (PRINIVIL,Z 2-21 by mouth Luke s ESTRIL) 40 00:00: Daily Medica l MG tablet 00 (1800). [place] lisinopriL 2014-09 Yes 40mg Take [address] (PRINIVIL,Z 2-21 by mouth Luke s ESTRIL) 40 00:00: Daily Medica l MG tablet 00 (1800). [place] lisinopriL 2014-09 Yes 40mg Take [address] (PRINIVIL,Z 2-21 by mouth Luke s ESTRIL) 40 00:00: Daily Medica l MG tablet 00 (1800). [place] lisinopriL 2014-09 Yes 40mg Take [address] (PRINIVIL,Z 2-21 by mouth Luke s ESTRIL) 40 00:00: Daily Medica l MG tablet 00 (1800). [place] PROTONIX 40 Yes [id number] 1 tab PO Univers MG ORAL 4-01 daily ity of TBEC 00:00: [place] 00 [facility] PROTONIX 40 Yes [id number] 1 tab PO Univers MG ORAL 4-01 daily ity of TBEC 00:00: [place] 00 [facility] PROTONIX 40 Yes [id number] 1 tab PO Univers MG ORAL 4-01 daily ity of TBEC 00:00: [place] 00 [facility] PROTONIX 40 Yes [id number] 1 tab PO Univers MG ORAL 4-01 daily ity of TBEC 00:00: [place] [facility] PROTONIX 40 Yes [id number] 1 tab PO Univers MG ORAL 4-01 daily ity of TBEC 00:00: [place] 00 [facility] PROTONIX 40 Yes [id number] 1 tab PO Univers MG ORAL 4-01 daily ity of TBEC 00:00: [facility] PROTONIX 40 2021- No [id number] 1 tab PO Univers MG ORAL 4-01 10-15 daily ity of TBEC 00:00: 00:00 [place] 00 :00 [facility] PROTONIX 40 2021- No [id number] 1 tab PO Univers MG ORAL 4-01 10-15 daily ity of TBEC 00:00: 00:00 [place] 00 :00 [facility] ENALAPRIL Yes [id number] 1 tab po Univers MALEATE 20 1-15 BID ity of MG ORAL TAB 00:00: Medical Branch ENALAPRIL Yes [id number] 1 tab po Univers MALEATE 20 1-15 BID ity of MG ORAL TAB 00:00: [place] 00 [facility] ENALAPRIL 2009-0 Yes [id number] 1 tab po Univers MALEATE 20 1-15 BID ity of MG ORAL TAB 00:00: [place] 00 [facility] ENALAPRIL 2009-0 Yes [id number] 1 tab po Univers MALEATE 20 1-15 BID ity of MG ORAL TAB 00:00: [place] 00 [facility] ENALAPRIL 2009-0 Yes [id number] 1 tab po Univers MALEATE 20 1-15 BID ity of MG ORAL TAB 00:00: [place] 00 [facility] ENALAPRIL 2009-0 Yes [id number] 1 tab po Univers MALEATE 20 1-15 BID ity of MG ORAL TAB 00:00: [place] 00 [facility] ENALAPRIL 2009-0 2022- No [id number] 1 tab po Univers MALEATE 20 1-15 10-15 BID ity of MG ORAL TAB 00:00: 00:00 [place] 00 :00 [facility] ENALAPRIL 2009-0 2022- No [id number] 1 tab po Univers MALEATE 20 1-15 10-15 BID ity of MG ORAL TAB 00:00: 00:00 [place] 00 :00 [facility] HYDROCHLORO 2008- Yes [id number] take 1 po Univers THIAZIDE 25 0-30 daily ity of MG ORAL TAB 00:00: [place] 00 [facility] HYDROCHLORO 2008- Yes [id number] take 1 po Univers THIAZIDE 25 0-30 daily ity of MG ORAL TAB 00:00: [place] 00 [facility] HYDROCHLORO 2008- Yes [id number] take 1 po [facility] THIAZIDE 25 0-30 daily ity of MG ORAL TAB 00:00: [place] 00 [facility] HYDROCHLORO 2008- Yes [id number] take 1 po Univers THIAZIDE 25 0-30 daily ity of MG ORAL TAB 00:00: [place] 00 [facility] HYDROCHLORO 2008- Yes [id number] take 1 po [facility] THIAZIDE 25 0-30 daily ity of MG ORAL TAB 00:00: [place] 00 [facility] HYDROCHLORO 2008- Yes [id number] take 1 po Univers THIAZIDE 25 0-30 daily ity of MG ORAL TAB 00:00: [place] 00 [facility] HYDROCHLORO 2007-2- No [id number] take 1 po Univers THIAZIDE 25 0-30 10-15 daily ity of MG ORAL TAB 00:00: 00:00 [place] 00 :00 [facility] HYDROCHLORO 2007-09- No [id number] take 1 po Univers THIAZIDE 25 0-30 10-15 daily ity of MG ORAL TAB 00:00: 00:00 00 :00 [facility] GLIPIZIDE 5 Yes [...] it y of 00:00: 00:00 tab qpm [place] 00 :00 [facility] GLIPIZIDE 5 2021- No tske 2 tab Univers MG ORAL TAB 9-09 10-15 qam and 1 it y of 00:00: 00:00 tab qpm [place] 00 :00 [facility] ATENOLOL Yes [id number] one tab po [facility] 100 MG ORAL 8-27 daily ity of TAB 00:00: [facility] NORCO Yes 1 tab po Univers 7.5-325 MG 8-27 TID ity of ORAL TAB 00:00: [facility] AMITRIPTYLI Yes 2 tabs QHS Univers NE 50 MG 8-27 ity of ORAL TAB 00:00: [facility] METFORMIN Yes [id number] 1 tab PO Univers 850 MG ORAL 8-27 TID ity of TAB 00:00: [place] [facility] CLONIDINE Yes [id number] take 1 po Univers 0.2 MG ORAL 8-27 qid for 1 ity of TAB 00:00: week, then [place] 00 tid for 1 Medical week, then Branch bid and prn thereafter PRAVASTATIN Yes [id number] take 1 po Univers 40 MG ORAL 8-27 qhs ity of TAB 00:00: [place] [facility] ATENOLOL Yes [id number] one tab po Univers 100 MG ORAL 8-27 daily ity of TAB 00:00: [place] [facility] NORCO Yes 1 tab po Univers 7.5-325 MG 8-27 TID ity of ORAL TAB 00:00: [place] [facility] AMITRIPTYLI Yes 2 tabs QHS Univers NE 50 MG 8-27 ity of ORAL TAB 00:00: [place] [facility] METFORMIN Yes [id number] 1 tab PO Univers 850 MG ORAL 8-27 TID ity of TAB 00:00: [place] [facility] CLONIDINE Yes [id number] take 1 po Univers 0.2 MG ORAL 8-27 qid for 1 ity of TAB 00:00: week, then [place] 00 tid for 1 Medical week, then Branch bid and prn thereafter PRAVASTATIN Yes [id number] take 1 po Univers 40 MG ORAL 8-27 qhs ity of TAB 00:00: [place] [facility] ATENOLOL Yes [id number] one tab po Univers 100 MG ORAL 8-27 daily ity of TAB 00:00: [place] [facility] NORCO Yes 1 tab po Univers 7.5-325 MG 8-27 TID ity of ORAL TAB 00:00: [place] [facility] AMITRIPTYLI Yes 2 tabs QHS Univers NE 50 MG 8-27 ity of ORAL TAB 00:00: [place] [facility] METFORMIN Yes [id number] 1 tab PO Univers 850 MG ORAL 8-27 TID ity of TAB 00:00: [place] [facility] CLONIDINE Yes [id number] take 1 po Univers 0.2 MG ORAL 8-27 qid for 1 ity of TAB 00:00: week, then [place] 00 tid for 1 Medical week, then Branch bid and prn thereafter PRAVASTATIN Yes [id number] take 1 po Univers 40 MG ORAL 8-27 qhs ity of TAB 00:00: [place] [facility] ATENOLOL Yes [id number] one tab po Univers 100 MG ORAL 8-27 daily ity of TAB 00:00: [place] [facility] NORCO Yes 1 tab po Univers 7.5-325 MG 8-27 TID ity of ORAL TAB 00:00: [place] [facility] AMITRIPTYLI Yes 2 tabs QHS Univers NE 50 MG 8-27 ity of ORAL TAB 00:00: [place] [facility] METFORMIN Yes [id number] 1 tab PO Univers 850 MG ORAL 8-27 TID ity of TAB 00:00: [place] [facility] CLONIDINE Yes [id number] take 1 po Univers 0.2 MG ORAL 8-27 qid for 1 ity of TAB 00:00: week, then [place] 00 tid for 1 Medical week, then Branch bid and prn thereafter PRAVASTATIN Yes [id number] take 1 po Univers 40 MG ORAL 8-27 qhs ity of TAB 00:00: [place] [facility] ATENOLOL Yes [id number] one tab po Univers 100 MG ORAL 8-27 daily ity of TAB 00:00: [place] [facility] NORCO Yes 1 tab po Univers 7.5-325 MG 8-27 TID ity of ORAL TAB 00:00: [place] [facility] AMITRIPTYLI Yes 2 tabs QHS Univers NE 50 MG 8-27 ity of ORAL TAB 00:00: [place] [facility] METFORMIN Yes [id number] 1 tab PO Univers 850 MG ORAL 8-27 TID ity of TAB 00:00: [place] [facility] CLONIDINE Yes [id number] take 1 po Univers 0.2 MG ORAL 8-27 qid for 1 ity of TAB 00:00: week, then [place] 00 tid for 1 Medical week, then Branch bid and prn thereafter PRAVASTATIN Yes [id number] take 1 po Univers 40 MG ORAL 8-27 qhs ity of TAB 00:00: [place] [facility] ATENOLOL Yes [id number] one tab po Univers 100 MG ORAL 8-27 daily ity of TAB 00:00: [place] 00 [facility] NORCO Yes 1 tab po Univers 7.5-325 MG 8-27 TID ity of ORAL TAB 00:00: [place] 00 [facility] AMITRIPTYLI Yes 2 tabs QHS Univers NE 50 MG 8-27 ity of ORAL TAB 00:00: [place] 00 [facility] METFORMIN 2007-0 Yes [id number] 1 tab PO Univers 850 MG ORAL 8-27 TID ity of TAB 00:00: [place] 00 [facility] CLONIDINE Yes [id number] take 1 po Univers 0.2 MG ORAL 8-27 qid for 1 ity of TAB 00:00: week, then [place] 00 tid for 1 Medical week, then Branch bid and prn thereafter PRAVASTATIN Yes [id number] take 1 po Univers 40 MG ORAL 8-27 qhs ity of TAB 00:00: [place] 00 [facility] ATENOLOL 2007-2021- No [id number] one tab po Univers 100 MG ORAL 8-27 10-15 daily ity of TAB 00:00: 00:00 [place] 00 :00 [facility] NORCO 2007- 2022- No 1 tab po Univers 7.5-325 MG 8-27 10-15 TID ity of ORAL TAB 00:00: 00:00 [place] 00 :00 [facility] AMITRIPTYLI 2007-2021- No 2 tabs QHS Univers NE 50 MG 8-27 10-15 ity of ORAL TAB 00:00: 00:00 [place] 00 :00 [facility] METFORMIN 2007-0 2021- No [id number] 1 tab PO Univers 850 MG ORAL 8-27 10-15 TID ity of TAB 00:00: 00:00 [place] 00 :00 [facility] CLONIDINE 2007- 2022- No [id number] take 1 po Univers 0.2 MG ORAL 8-27 10-15 qid for 1 it y of TAB 00:00: 00:00 week, then [place] 00 :00 tid for 1 Medical week, then Branch bid and prn thereafter PRAVASTATIN 2- No [id number] take 1 po Univers 40 MG ORAL 8-27 10-15 qhs ity of TAB 00:00: 00:00 [place] 00 :00 [facility] ATENOLOL 2007-2021- No [id number] one tab po Univers 100 MG ORAL [...] 00:00 [place] 00 :00 [facility] METFORMIN 2- No [id number] 1 tab PO Univers 850 MG ORAL 8-27 10-15 TID ity of TAB 00:00: 00:00 [place] 00 :00 [facility] CLONIDINE 2021- No [id number] take 1 po Univers 0.2 MG ORAL 8-27 10-15 qid for 1 it y of TAB 00:00: 00:00 week, then [place] 00 :00 tid for 1 Medical week, then Branch bid and prn thereafter PRAVASTATIN 2- No [id number] take 1 po [facility] 40 MG ORAL 8-27 10-15 qhs ity of TAB 00:00: 00:00 [place] 00 :00 [facility] CLONIDINE Yes [id number] 1 tab tid Univers 0.3 MG ORAL 4-30 and prn ity o f TAB 00:00: [place] 00 [facility] CLONIDINE 2007- Yes [id number] 1 tab tid Univers 0.3 MG ORAL 4-30 and prn ity o f TAB 00:00: [place] 00 [facility] CLONIDINE 2007- Yes [id number] 1 tab tid Univers 0.3 MG ORAL 4-30 and prn ity o f TAB 00:00: [place] 00 [facility] CLONIDINE 2007- Yes [id number] 1 tab tid Univers 0.3 MG ORAL 4-30 and prn ity o f TAB 00:00: [place] [facility] CLONIDINE 2007- Yes [id number] 1 tab tid Univers 0.3 MG ORAL 4-30 and prn ity o f TAB 00:00: [place] 00 [facility] CLONIDINE 2007- Yes [id number] 1 tab tid Univers 0.3 MG ORAL 4-30 and prn ity o f TAB 00:00: [place] 00 [facility] CLONIDINE 2021- No [id number] 1 tab tid Univers 0.3 MG ORAL 4-30 10-15 and prn ity of TAB 00:00: 00:00 [place] 00 :00 [facility] CLONIDINE 2007-0 2- No [id number] 1 tab tid Univers 0.3 MG ORAL 4-30 10-15 and prn ity of TAB 00:00: 00:00 [place] 00 :00 [facility] ASPIRIN 325 2006- Yes [id number] 1 tab U nivers MG ORAL TAB 0-04 daily ity of 00:00: [place] 00 [facility] ASPIRIN 325 2006- Yes [id number] 1 tab U nivers MG ORAL TAB 0-04 daily ity of 00:00: [place] 00 [facility] ASPIRIN 325 2006- Yes [id number] 1 tab U nivers MG ORAL TAB 0-04 daily ity of 00:00: [place] 00 [facility] ASPIRIN 325 2006- Yes [id number] 1 tab U nivers MG ORAL TAB 0-04 daily ity of 00:00: [place] 00 [facility] ASPIRIN 325 2006- Yes [id number] 1 tab U nivers MG ORAL TAB 0-04 daily ity of 00:00: [place] 00 [facility] ASPIRIN 325 2006- Yes [id number] 1 tab U nivers MG ORAL TAB 0-04 daily ity of 00:00: [place] 00 [facility] ASPIRIN 325 2006- 2022- No [id number] 1 tab Univers MG ORAL TAB 0-04 10-15 daily ity of 00:00: 00:00 [place] 00 :00 [facility] ASPIRIN 325 2006-2021- No [id number] 1 tab Univers MG ORAL TAB 0-04 10-15 daily ity of 00:00: 00:00 [place] 00 :00 [facility] Immunizations Ordered Filled Immunization Date Status Comments [facility] e Immunization Name Name Influenza Virus 2007-06-20 Completed Universit y of Vaccine 00:00:00 [facility] [place] [facility] Influenza Virus 2007-06-20 Completed Universit y of Vaccine 00:00:00 [facility] [place] [facility] Influenza Virus 2007-06-20 Completed Universit y of Vaccine 00:00:00 [facility] [place] [facility] Influenza Virus 2007-06-20 Completed Universit y of Vaccine 00:00:00 [facility] [place] [facility] Influenza Virus 2007-06-20 Completed Universit y of Vaccine 00:00:00 [facility] [place] [facility] Influenza Virus 2007-06-20 Completed Universit y of Vaccine 00:00:00 [facility] [place] [facility] Influenza Virus 2007-06-20 Completed Universit y of Vaccine 00:00:00 [facility] [place] [facility] Influenza Virus 2007-06-20 Completed Universit y of Vaccine 00:00:00 [facility] [place] [facility] Influenza Virus 2007-06-20 Completed Universit y of Vaccine 00:00:00 [facility] [place] [facility] Influenza Virus 2007-06-20 Completed Universit y of Vaccine 00:00:00 [facility] [place] [facility] Influenza Virus 2007-06-20 Completed Universit y of Vaccine 00:00:00 [facility] [place] [facility] Influenza Virus 2007-06-20 Completed Universit y of Vaccine 00:00:00 [facility] [place] [facility] Influenza Virus 2007-06-20 Completed Universit y of Vaccine 00:00:00 [facility] [place] [facility] Influenza Virus 2007-06-20 Completed Universit y of Vaccine 00:00:00 [facility] [place] [facility] Influenza Virus 2007-06-20 Completed Universit y of Vaccine 00:00:00 [facility] [place] [facility] Influenza Virus 2007-06-20 Completed Universit y of Vaccine 00:00:00 [facility] [place] [facility] Influenza Virus 2007-06-20 Completed Universit y of Vaccine 00:00:00 [facility] [place] [facility] Influenza Virus 2007-06-20 Completed Universit y of Vaccine 00:00:00 [facility] [place] [facility] Influenza Virus 2007-06-20 Completed Universit y of Vaccine 00:00:00 [facility] [place] [facility] Influenza Virus 2007-06-20 Completed Universit y of Vaccine 00:00:00 [facility] [place] [facility] Influenza Virus 2007-06-20 Completed Universit y of Vaccine 00:00:00 [facility] [place] [facility] Influenza Virus 2007-06-20 Completed Universit y of Vaccine 00:00:00 [facility] [place] [facility] Influenza Virus 2007-06-20 Completed Universit y of Vaccine 00:00:00 [facility] [place] [facility] Influenza Virus 2007-06-20 Completed Universit y of Vaccine 00:00:00 [facility] [place] [facility] Influenza Virus 2007-06-20 Completed Universit y of Vaccine 00:00:00 [facility] [place] [facility] Influenza Virus 2007-06-20 Completed Universit y of Vaccine 00:00:00 [facility] [place] [facility] Influenza Virus 2006-07-26 Completed Universit y of Vaccine 00:00:00 [facility] [place] [facility] Influenza Virus 2006-07-26 Completed Universit y of Vaccine 00:00:00 [facility] [place] [facility] Influenza Virus 2006-07-26 Completed Universit y of Vaccine 00:00:00 [facility] [place] [facility] Influenza Virus 2006-07-26 Completed Universit y of Vaccine 00:00:00 [facility] [place] [facility] Influenza Virus 2006-07-26 Completed Universit y of Vaccine 00:00:00 [facility] [place] [facility] Influenza Virus 2006-07-26 Completed Universit y of Vaccine 00:00:00 [facility] Influenza Virus 2006-07-26 Completed Universit y of Vaccine 00:00:00 [facility] [place] [facility] Influenza Virus 2006-07-26 Completed Universit y of Vaccine 00:00:00 [facility] [place] [facility] Influenza Virus 2006-07-26 Completed Universit y of Vaccine 00:00:00 [facility] [place] [facility] Influenza Virus 2006-07-26 Completed Universit y of Vaccine 00:00:00 [facility] [place] [facility] Influenza Virus 2006-07-26 Completed Universit y of Vaccine 00:00:00 [facility] [place] [facility] Influenza Virus 2006-07-26 Completed Universit y of Vaccine 00:00:00 [facility] [place] [facility] Influenza Virus 2006-07-26 Completed Universit y of Vaccine 00:00:00 [facility] [place] [facility] Influenza Virus 2006-07-26 Completed Univers[facility] of Vaccine 00:00:00 [facility] [place] [facility] Influenza Virus 2006-07-26 Completed Universit y of Vaccine 00:00:00 [facility] Influenza Virus 2006-07-26 Completed Universit [facility] of Vaccine 00:00:00 [facility] Influenza Virus 2006-07-26 Completed Universit y of Vaccine 00:00:00 [facility] Influenza Virus 2006-07-26 Completed Universit y of Vaccine 00:00:00 [facility] Influenza Virus 2006-07-26 Completed Universit y of Vaccine 00:00:00 [facility] Influenza Virus 2006-07-26 Completed Universit y of Vaccine 00:00:00 [facility] Influenza Virus 2006-07-26 Completed Universit y of Vaccine 00:00:00 [facility] Influenza Virus 2006-07-26 Completed Universit y of Vaccine 00:00:00 [facility] Influenza Virus 2006-07-26 Completed Universit y of Vaccine 00:00:00 [facility] Influenza Virus 2006-07-26 Completed Universit y of Vaccine 00:00:00 [facility] Influenza Virus 2006-07-26 Completed Universit y of Vaccine 00:00:00 [facility] Influenza Virus 2006-07-26 Completed Universit y of Vaccine 00:00:00 [facility] Vital Signs Vital Name Observation Time Observation Value Comments Source WEIGHT 2020-03-24 76.658 kg 00:00:00 Systolic blood 2022-11-01 129 mm[Hg] University of pressure 17:28:00 [facility] Diastolic blood 2022-11-01 80 mm[Hg] University o f pressure 17:28:00 [facility] Heart rate 2022-11-01 77 /min University of 17:28:00 [facility] Body temperature 2022-11-01 36.67 Sindhu University of 17:28:00 [facility] Respiratory rate 2022-11-01 20 /min University of 17:28:00 [facility] Oxygen saturation 2022-11-01 94 /min University of in Arterial blood 17:28:00 [facility] by Pulse oximetry Branch Body weight 2022-10-31 77.1 kg University of 14:00:00 [facility] BMI 2022-10-31 29.18 kg/m2 University of 14:00:00 [facility] Systolic blood 2022-10-08 139 mm[Hg] University of pressure 15::00 [facility] Diastolic blood 2022-10-08 85 mm[Hg] University o f pressure 15::00 [facility] Heart rate 2022-10-08 72 /min University of 15::00 [facility] Body temperature 2022-10-08 35.56 Sindhu University of 15::00 [facility] Respiratory rate 2022-10-08 22 /min University of 15::00 [facility] Oxygen saturation 2022-10-08 96 /min University of in Arterial blood 15:29:00 [facility] by Pulse oximetry Branch Body height 2022-10-06 162.6 cm University of 22:03:00 [facility] Body weight 2022-10-06 78.926 kg University of 22:03:00 [facility] BMI 2022-10-06 29.87 kg/m2 University of 22:03:00 [facility] Body weight 2022-09-30 70.308 kg University of 17::00 [facility] BMI 2022-09-30 29.87 kg/m2 University of 17:27:00 [facility] Systolic blood 2022-08-03 137 mm[Hg] University of pressure 19:29:00 [facility] Diastolic blood 2022-08-03 68 mm[Hg] University o f pressure 19:29:00 [facility] Heart rate 2022-08-03 75 /min University of 19:29:00 [facility] Body temperature 2022-08-03 36.11 Sindhu University of 19:29:00 [facility] Respiratory rate 2022-08-03 16 /min University of 19:29:00 [facility] Body height 2022-08-03 162.6 cm University of 19:29:00 [facility] Body weight 2022-08-03 70.308 kg University of 19:29:00 [facility] BMI 2022-08-03 26.61 kg/m2 University of 19:29:00 [facility] Systolic blood 2022-06-25 150 mm[Hg] University of pressure 16:28:00 [facility] Diastolic blood 2022-06-25 92 mm[Hg] University o f pressure 16:28:00 [facility] Heart rate 2022-06-25 102 /min University of 16:28:00 [facility] Body temperature 2022-06-25 36.5 Sindhu University of 16:28:00 [facility] Respiratory rate 2022-06-25 20 /min University of 16:28:00 [facility] Oxygen saturation 2022-06-25 91 /min University of in Arterial blood 16:28:00 [facility]ce by Pulse oximetry [place] Body weight 2022-06-21 71.215 kg University of 15::00 [facility] BMI 2022-06-21 26.13 kg/m2 University of 15:26:00 [facility] Body height 2022-06-20 165.1 cm University of 18:31:00 [facility] Systolic blood 2022-06-24 184 mm[Hg] University of pressure 12:28:00 [facility] [place] bedside Diastolic blood 2022-06-24 105 mm[Hg] dr Hernandez o f pressure 12:28:00 [facility] [place] bedside Heart rate 2022-06-24 79 /min University of 12:28:00 [facility] Body temperature 2022-06-24 36.5 Sindhu University of 12:28:00 [facility] Respiratory rate 2022-06-24 20 /min University of 12:28:00 [facility] Oxygen saturation 2022-06-24 95 /min University of in Arterial blood 12:28:00 [place] [facility] Pulse oximetry [place] Body weight 2022-06-21 71.215 kg [facility] 15:26:00 [facility] BMI 2022-06-21 26.13 kg/m2 [facility] 15:26:00 [facility] Body height 2022-06-20 165.1 cm [facility] 18:31:00 [facility] Systolic blood 2021-05-11 156 mm[Hg] University of pressure 01:25:00 [facility] Diastolic blood 2021-05-11 77 mm[Hg] [place] o f pressure 01:25:00 [facility] Heart rate 2021-05-11 65 /min [facility] 01:25:00 [facility] Body temperature 2021-05-11 36.94 Sindhu [facility] 01:25:00 [facility] Respiratory rate 2021-05-11 18 /min [facility] 01:25:00 [facility] Oxygen saturation 2021-05-11 96 /min [facility] in Arterial blood 01:25:00 [facility] by Pulse oximetry [place] Body weight 2021-05-10 68.04 kg [facility] 12:50:00 [facility] WEIGHT 2020-03-24 76.658 kg 00:00:00 Systolic (mm Hg) 2018-02-27 [facility] rmann 18:06:00 Diastolic (mm Hg) 2018-02-27 [facility] ermann 18:06:00 Heart Rate 2018-02-27 [facility] 18:[facility]:00 Temperature Oral 2018-02-27 99.4 F [facility] rmann (F) 18:06:00 Respitory Rate 2018-02-27 [facility] 18:06:00 Systolic (mm Hg) 2018-02-27 [facility] rmann 12:34:00 Diastolic (mm Hg) 2018-02-27 [facility] 12:34:00 Respitory Rate 2018-02-27 [facility] 12:34:00 Temperature Oral 2018-02-27 97.8 F [facility] rmann (F) 12:34:00 Heart Rate 2018-02-27 [facility] 12:34:00 Heart Rate 2018-02-27 [facility] 09:19:00 Temperature Oral 2018-02-27 98.1 F [facility] rmann (F) 09:19:00 Respitory Rate 2018-02-27 [facility] 09:30:00 Heart Rate 2018-02-13 [facility] 09:30:00 Temperature Oral 2018-02-13 97 F [facility] (F) 09:30:00 Systolic (mm Hg) 2018-02-13 [facility] 04:55:00 Diastolic (mm Hg) 2018-02-13 [facility] 04:55:00 Respitory Rate 2018-02-13 [facility] 04:55:00 Heart Rate 2018-02-13 [facility] 04:55:00 Temperature Oral 2018-02-13 97 F [facility] Ishan rmann (F) 04:55:00 Weight 2018-02-06 [facility] [...] 2022-11-11 Doctor Unassigned, Universit y of 06:01:00 [place] [facility] EXTERNAL PROVIDER RECORDS 2022-11-10 Doctor Unassigned, Uni versity of 06:01:00 [place] [facility] COVID-19 (ID NOW RAPID 2022-11-01 [place] y of TESTING) 19:31:00 [facility] POCT GLUCOSE (AUTOMATED) 2022-11-01 Jarvis Milligan Univers ity of 17:45:00 [facility] POCT GLUCOSE (AUTOMATED) 2022-11-01 Georgia Milliganon Univers ity of 13:54:00 [facility] POCT GLUCOSE (AUTOMATED) 2022-11-01 [place] Milliganon Univers ity of 01:54:00 [facility] POCT GLUCOSE (AUTOMATED) 2022-10-31 Jarvis Milligan Univers ity of 22:16:00 [facility] POCT GLUCOSE (AUTOMATED) 2022-10-31 Jarvis Milligan Univers ity of 17:38:00 [facility] POCT GLUCOSE (AUTOMATED) 2022-10-31 Jarvis Milligan Univers ity of 14:35:00 [facility] POCT GLUCOSE (AUTOMATED) 2022-10-31 Jarvis Milligan Univers ity of 03:26:00 [facility] POCT GLUCOSE (AUTOMATED) 2022-10-30 Jarvis Milligan Univers ity of 17:29:00 [facility] POCT GLUCOSE (AUTOMATED) 2022-10-30 Jarvis Milligan Univers ity of 13:45:00 [facility] CBC WITHOUT DIFF 2022-10-30 Abdirashid [facility] of 10:52:00 [facility] POCT GLUCOSE (AUTOMATED) 2022-10-30 Jarvis Milligan Univers ity of 01:54:00 [facility] POCT GLUCOSE (AUTOMATED) 2022-10-29 Jarvis Milligan Univers ity of 22:49:00 [facility] POCT GLUCOSE (AUTOMATED) 2022-10-29 Jarvis Milligan Univers ity of 17:47:00 [facility] POCT GLUCOSE (AUTOMATED) 2022-10-29 Jarvis Milligan Univers ity of 13:45:00 [facility] POCT GLUCOSE (AUTOMATED) 2022-10-29 Jarvis Milligan Univers ity of 02:03:00 [facility] POCT GLUCOSE (AUTOMATED) 2022-10-28 Jarvis Milligan Univers ity of 23:28:00 [facility] POCT GLUCOSE (AUTOMATED) 2022-10-28 Jarvis Milligan Univers ity of 18:24:00 [facility] POCT GLUCOSE (AUTOMATED) 2022-10-28 Jarvis Milligan Univers ity of 14:36:00 [facility] BASIC METABOLIC PANEL (NA, K, 2022-10-28 [facility] of CL, CO2, GLUCOSE, BUN, 10:14:00 [facility] ical CREATININE, CA) Branch CBC WITH DIFF 2022-10-28 [facility] of 10:14:00 [facility] POCT GLUCOSE (AUTOMATED) 2022-10-28 Jarvis Milligan Univers ity of 02:04:00 [facility] POCT GLUCOSE (AUTOMATED) 2022-10-27 Jarvis Milligan Univers ity of 22:35:00 [facility] POCT GLUCOSE (AUTOMATED) 2022-10-27 Jarvis Milligan Univers ity of 17:33:00 [facility] POCT GLUCOSE (AUTOMATED) 2022-10-27 Jarvis Milligan Univers ity of 14:41:00 [facility] POCT GLUCOSE (AUTOMATED) 2022-10-27 Jarvis Milligan Univers ity of 03:31:00 [facility] POCT GLUCOSE (AUTOMATED) 2022-10-26 Raul Rosen S Univer sity of 22:30:00 [facility] POCT GLUCOSE (AUTOMATED) 2022-10-26 Raul Rosen S Univer sity of 17:32:00 [facility] POCT GLUCOSE (AUTOMATED) 2022-10-26 Raul Rosen S Univer sity of 13:26:00 [facility] BASIC METABOLIC PANEL (NA, K, 2022-10-26 [facility] of CL, CO2, GLUCOSE, BUN, 11:36:00 [facility] ical CREATININE, CA) Branch CBC WITH DIFF 2022-10-26 [facility] of 11:36:00 [facility] MAGNESIUM 2022-10-26 [facility] of 02:30:00 [facility] BASIC METABOLIC PANEL (NA, K, 2022-10-26 [facility] of CL, CO2, GLUCOSE, BUN, 02:30:00 [facility] ical CREATININE, CA) Branch POCT GLUCOSE (AUTOMATED) 2022-10-26 Raul Rosen Univer sity of 01:48:00 [facility] POCT GLUCOSE (AUTOMATED) 2022-10-25 Raul Rosen Univer sity of 22:14:00 [facility] POCT GLUCOSE (AUTOMATED) 2022-10-25 Raul Rosen Univer sity of 17:33:00 [facility] ROSIO AURIS SURVEILLANCE BY 2022-10-25 Aleksandr Borja iversity of PCR (INFECTION CONTROL 15:47:00 [facility] PURPOSES) Branch POCT GLUCOSE (AUTOMATED) 2022-10-25 Raul Rosen Univer sity of 14:25:00 [facility] POCT GLUCOSE (AUTOMATED) 2022-10-25 Raul Rosen Univer sity of 13:36:00 [facility] CT ANGIOGRAM HEAD 2022-10-25 [facility] 10:18:30 [facility] CT HEAD WO CONTRAST 2022-10-25 Abdirashid Nini [place] of 10:18:30 [facility] CT ANGIOGRAM NECK 2022-10-25 [facility] of 10:18:30 [facility] BASIC METABOLIC PANEL (NA, K, 2022-10-25 Nini Mendenhall niversity of CL, CO2, GLUCOSE, BUN, 09:42:00 [facility] CREATININE, CA) Branch CBC WITH DIFF 2022-10-25 Nini Mendenhall of 09:42:00 [facility] PROTHROMBIN TIME / INR 2022-10-25 Nini Menednhall [facility] ty of 09:42:00 [facility] ACTIVATED PARTIAL THRMPLAS 2022-10-25 Nini Mendenhall ersity of ANUSHA 09:42:00 [facility] FIBRINOGEN 2022-10-25 Abdirashid [facility] of 09:42:00 [facility] XR ELBOW <3 VW LEFT 2022-10-25 [facility] o f 02:12:03 [facility] XR SHOULDER <2 VW LEFT 2022-10-25 Liza Quiroz [facility] y of 02:12:03 [facility] XR WRIST 3+ VW LEFT 2022-10-25 [facility] f 02:12:03 [facility] CT HEAD WO CONTRAST 2022-10-25 Richie [facility] o f 01:45:02 [facility] URINE CULTURE 2022-10-25 Richie [facility] of 00:42:00 [facility] HB ECG ROUTINE & RHYTHM STRIP 2022-10-25 Liza Quiroz iversity of 00:38:10 [facility] URINALYSIS 2022-10-25 [facility] of 00:32:00 [facility] LIPASE 2022-10-25 Richie [facility] of 00:12:00 [facility] MAGNESIUM 2022-10-25 Richie [facility] of 00:12:00 [facility] TROPONIN I 2022-10-25 Richie [facility] of 00:12:00 [facility] COMP. METABOLIC PANEL (69210) 2022-10-25 Liza Quiroz iversity of 00:12:00 [facility] CBC WITH DIFF 2022-10-25 [facility] of 00:12:00 [facility] PROTHROMBIN TIME / INR 2022-10-[address] [facility] of 00:12:00 [facility] N-TERMINAL PRO-BNP 2022-10-25 Richie [facility] of 00:12:00 [facility] EMERGENCY DEPARTMENT 2022-10-24 Doctor Unassigned, [facility] ty of DOCUMENTS 06:01:00 [place] [facility] COVID-19 (ID NOW RAPID 2022-10-08 Adelaide Grossman [facility] y of TESTING) 14:58:00 [facility] COVID-19 (ID NOW RAPID 2022-10-08 Adelaide Grossman [facility] y of TESTING) 14:58:00 [facility] LAB ONLY COVID INTERPRETATION 2022-10-08 Adelaide Grossman Un iversity of 14:58:00 [facility] POCT GLUCOSE (AUTOMATED) 2022-10-08 [place], Univers ity of 14:55:00 [facility] POCT GLUCOSE (AUTOMATED) 2022-10-08 [place], Univers ity of 14:55:00 [facility] POCT GLUCOSE (AUTOMATED) 2022-10-08 [place], Univers ity of 03:51:00 [facility] POCT GLUCOSE (AUTOMATED) 2022-10-08 Bryan, Univers ity of 03:51:00 [facility] POCT GLUCOSE (AUTOMATED) 2022-10-08 Bryan, Univers ity of 03:10:00 [facility] POCT GLUCOSE (AUTOMATED) 2022-10-08 [place], Univers ity of 03:10:00 [facility] COVID-19 (ID NOW RAPID 2022-10-07 Chauncey [facility] y of TESTING) 20:42:00 [facility] LAB ONLY COVID INTERPRETATION 2022-10-07 Adelaide Grossman Un iversity of 20:42:00 [facility] COVID-19 (ID NOW RAPID 2022-10-07 Chauncey [facility] y of TESTING) 20:42:00 [facility] LAB ONLY COVID INTERPRETATION 2022-10-07 Adelaide Grossman Un iversity of 20:42:00 [facility] HB ECG ROUTINE & RHYTHM STRIP 2022-10-07 Bryan Un iversity of 14:09:51 [facility] HB ECG ROUTINE & RHYTHM STRIP 2022-10-07 Bryan, Un iversity of 14:09:51 [facility] MAGNESIUM 2022-10-07 Chauncey [facility] of 11:05:00 [facility] BASIC METABOLIC PANEL (NA, K, 2022-10-07 Adelaide Grossman iversity of CL, CO2, GLUCOSE, BUN, 11:05:00 [facility] ical CREATININE, [place]) Branch CBC WITH DIFF 2022-10-07 Chauncey [facility] of 11:05:00 [facility] MAGNESIUM 2022-10-07 Chauncey [facility] of 11:05:00 [facility] BASIC METABOLIC PANEL (NA, K, 2022-10-07 Chauncey Adelaide Un iversity of CL, CO2, GLUCOSE, BUN, 11:05:00 [facility] ical CREATININE, [place]) Branch CBC WITH DIFF 2022-10-07 [facility] of 11:05:00 [facility] CT HEAD WO CONTRAST 2022-10-06 [facility] o f 21:38:43 [facility] CT HEAD WO CONTRAST 2022-10-06 [facility] o f 21:38:43 [facility] XR CHEST 1 VW 2022-10-06 [facility] of 18:00:00 [facility] XR CHEST 1 VW 2022-10-06 [facility] of 18:00:00 [facility] CARDIAC [facility]TERIZATION 2022[facility]10-[facility] 15:30:17 [facility] ELECTROPHYSIOLOGY PROCEDURE 2022-10-06 [place], [facility] ersity of 15:30:17 [facility] ELECTROPHYSIOLOGY PROCEDURE 2022-10-06 [facility], [facility] ersity of 15:30:17 [facility] CARDIAC CATHETERIZATION 2022-10-06 [facility], [facility] ty of 15:30:17 [facility] ELECTROPHYSIOLOGY PROCEDURE 2022-10-06 [facility], [facility] ersity of 15:30:17 [facility] ELECTROPHYSIOLOGY PROCEDURE 2022-10-06 [facility], [facility] ersity of 15:30:17 [facility] CBC WITH DIFF 2022-10-03 [facility] of 17:03:00 [facility] PROTHROMBIN TIME / INR 2022-10-03 [facility] 17:03:00 [facility] HB ECG ROUTINE & RHYTHM STRIP 2022-08-03 Bryan, iversity of 19:36:45 [facility] ASSIGNMENT OF BENEFITS 2022-08-03 Doctor Unassigned, Univer sity of 17:21:11 [place] [facility] EXTERNAL PROVIDER RECORDS 2022-07-07 Doctor Unassigned, Uni versity of 05:01:00 [place] [facility] POCT GLUCOSE (AUTOMATED) 2022-06-25 [place], [facility] ersity of 17:11:00 [facility] POCT GLUCOSE (AUTOMATED) 2022-06-25 [place]ver[place], [facility] ersity of 17:11:00 [facility] POCT GLUCOSE (AUTOMATED) 2022-06-25 [place]ver[place], [facility] ersity of 14:07:00 [facility] POCT GLUCOSE (AUTOMATED) 2022-06-25 Alver[place], [facility] ersity of 14:07:00 [facility] MAGNESIUM 2022-06-25 [facility]:22[facility]00 [facility] BASIC METABOLIC PANEL (NA, K, 2022-06-25 Gita [place] [facility] of CL, CO2, GLUCOSE, BUN, 10:22:00 [place] [facility] CREATININE, [place]) Branch CBC WITHOUT DIFF 2022-06-25 edwina [facility] of 10:22:00 [facility] MAGNESIUM 2022-06-25 [facility] of 10:22:00 [facility] BASIC METABOLIC PANEL (NA, K, 2022-06-25 Gita [place] [facility] of CL, CO2, GLUCOSE, BUN, 10:22:00 [place] [facility] CREATININE, [place]) Branch CBC WITHOUT DIFF 2022-06-25 [facility] of 10:22:00 [facility] POCT GLUCOSE (AUTOMATED) 2022-06-[address] [facility] ersity of 01:29:00 [facility] POCT GLUCOSE (AUTOMATED) 2022-06-[address] [facility] ersity of 01:29:00 [facility] POCT GLUCOSE (AUTOMATED) 2022-06-[address] [facility] ersity of 22:20:00 [facility] POCT GLUCOSE (AUTOMATED) 2022-06-24 Alverto, [facility] ersity of 22:20:00 [facility] POCT GLUCOSE (AUTOMATED) 2022-06-24 Alverto, [facility] ersity of 18:06:00 [facility] POCT GLUCOSE (AUTOMATED) 2022-06-[address] [facility] ersity of 18:06:00 [facility] CBC WITHOUT DIFF 2022-06-24 Gita [facility] of 17:27:00 [facility] CBC WITHOUT DIFF 2022-06-24 Gita [facility] of 17:27:00 [facility] MAGNESIUM 2022-06-24 Gita [facility] of 17:26:00 [facility] BASIC METABOLIC PANEL (NA, K, 2022-06-24 Gita [place] [facility] CL, CO2, GLUCOSE, BUN, 17:26:00 [place] [facility] CREATININE, CA) Branch MAGNESIUM 2022-06-24 Gita [facility] of 17:26:00 [facility] BASIC METABOLIC PANEL (NA, K, 2022-06-24 Gita [place] [facility] of CL, CO2, GLUCOSE, BUN, 17:26:00 [place] [facility] CREATININE, CA) Branch ELECTROPHYSIOLOGY PROCEDURE 2022-06-24 [facility] of 13:36:26 [facility] ELECTROPHYSIOLOGY PROCEDURE 2022-06-24 [facility] ersity of 13:36:26 [facility] POCT GLUCOSE (AUTOMATED) 2022-06-[address] [facility] ersity of 13:01:00 [facility] POCT GLUCOSE (AUTOMATED) 2022-06-24 [facility] of 13:01:00 [facility] POCT GLUCOSE (AUTOMATED) 2022-06-24 Ca Meléndez Uni versity of 03:58:00 [facility] POCT GLUCOSE (AUTOMATED) 2022-06-24 Ca Meléndez Uni vers[facility] of 03:58:00 [facility] URINALYSIS 2022-06-23 Gita [facility] of 22:59:00 [facility] URINALYSIS 2022-06-23 Gita [facility] of 22:59:00 [facility] POCT GLUCOSE (AUTOMATED) 2022-06-23 Ca Meléndez [facility] vers[facility] of 22:38:00 [facility] POCT GLUCOSE (AUTOMATED) 2022-06-23 Ca Meléndez [facility] vers[facility] of 22:38:00 [facility] POCT GLUCOSE (AUTOMATED) 2022-06-23 Low, Ca [place] Uni vers[facility] of 17:07:00 [facility] POCT GLUCOSE (AUTOMATED) 2022-06-23 Low, Ca [place] [facility] vers[facility] of 17:07:00 [facility] POCT GLUCOSE (AUTOMATED) 2022-06-23 Low, Caneal WolfJuana Uni versity of 12:31:00 [facility] POCT GLUCOSE (AUTOMATED) 2022-06-23 Low, Ca [place] [facility] of 12:31:00 [facility] MAGNESIUM 2022-06-23 [facility] 09:22:00 [facility] BASIC METABOLIC PANEL (NA, K, 2022-06-23 Marlys [place] Un [facility] of CL, CO2, GLUCOSE, BUN, 09:22:00 [place] [facility] CREATININE, CA) Branch CBC WITHOUT DIFF 2022-06-23 Gita [facility] of 09:22:00 [facility] MAGNESIUM 2022-06-23 [facility] of 09:22:00 [facility] BASIC METABOLIC PANEL (NA, K, 2022-06-23 Marlys [place] Un ivers[facility] of CL, CO2, GLUCOSE, BUN, 09:22:00 [place] [facility] CREATININE, CA) Branch CBC WITHOUT DIFF 2022-06-23 Gita [facility] of 09:22:00 [facility] HB ECG ROUTINE & RHYTHM STRIP 2022-06-23 Fawad Muñoz [place] of 04:21:59 [facility] HB ECG ROUTINE & RHYTHM STRIP 2022-06-23 Fawad Muñoz [facility] of 04:21:59 [facility] POCT GLUCOSE (AUTOMATED) 2022-06-23 Medhat, Ca Arias Uni versity of 02:30:00 [facility] POCT GLUCOSE (AUTOMATED) 2022-06-23 Low, Ca [place] Uni versity of 02:30:00 [facility] PHOSPHORUS 2022-06-22 [facility] [place] of 22:43:00 [facility] PHOSPHORUS 2022-06-22 [facility] of 22:43:00 [facility] METANEPHRINES, PLASMA 2022-06-22 [facility] of 22:42:00 [facility] POCT GLUCOSE (AUTOMATED) 2022-06-22 Low, Ca [place] [facility] of 21:59:00 [facility] POCT GLUCOSE (AUTOMATED) 2022-06-22 Low, Ca [place] [facility] of 21:59:00 [facility] POCT GLUCOSE (AUTOMATED) 2022-06-22 Low, Ca [place] Uni [facility] of 16:52:00 [facility] POCT GLUCOSE (AUTOMATED) 2022-06-22 Low, Ca [place] [facility] of 16:52:00 [facility] POCT GLUCOSE (AUTOMATED) 2022-06-22 Low, Ca [place] [facility] of 13:13:00 [facility] POCT GLUCOSE (AUTOMATED) 2022-06-22 Low, Ca [place] Uni vers[facility] of 13:13:00 [facility] MAGNESIUM 2022-06-22 [facility] of 10:07:00 [facility] FERRITIN SERUM 2022-06-22 [facility] of 10:07:00 [facility] VITAMIN B12, LEVEL 2022-06-22 [facility] of 10:07:00 [facility] BASIC METABOLIC PANEL (NA, K, 2022-06-22 [facility] of CL, CO2, GLUCOSE, BUN, 10:07:00 [place] [facility] CREATININE, CA) Branch IRON PANEL 2022-06-22 [facility] of 10:07:00 [facility] CBC WITH DIFF 2022-06-22 [facility] of 10:07:00 [facility] MAGNESIUM 2022-06-22 [facility] of 10:07:00 [facility] FERRITIN SERUM 2022-06-22 [facility] of 10:07:00 [facility] VITAMIN B12, LEVEL 2022-06-22 [facility] of 10:07:00 [facility] BASIC METABOLIC PANEL (NA, K, 2022-06-22 [facility] of CL, CO2, GLUCOSE, BUN, 10:07:00 [place] [facility] CREATININE, CA) Branch IRON PANEL 2022-06-22 Bin Gomez [place] of 10:07:00 [facility] CBC WITH DIFF 2022-06-22 [facility] of 10:07:00 [facility] POCT GLUCOSE (AUTOMATED) 2022-06-22 Ca Meléndez Uni vers[facility] of 00:54:00 [facility] POCT GLUCOSE (AUTOMATED) 2022-06-22 MedhatJanellneal WolfJuana Uni versity of 00:54:00 [facility] POCT GLUCOSE (AUTOMATED) 2022-06-21 Srinath Cohen [facility] of 21:48:00 [facility] POCT GLUCOSE (AUTOMATED) 2022-06-21 Srinath Cohen [facility] ity of 21:48:00 [facility] HB ECG ROUTINE & RHYTHM STRIP 2022-06-21 Bin Gomez Un iversity of 19:13:25 [facility] HB ECG ROUTINE & RHYTHM STRIP 2022-06-21 Bin Gomez Un i[facility] of 19:13:25 [facility] TRANSTHORACIC ECHO (TTE) 2022-06-21 Bin Gomez [facility] ity of COMPLETE W/ CONTRAST 16:58:45 [facility] TRANSTHORACIC ECHO (TTE) 2022-06-21 Bin Gomez [facility] ity of COMPLETE W/ CONTRAST 16:58:45 [facility] POCT GLUCOSE (AUTOMATED) 2022-06-21 Srinath Cohen ity of 16:35:00 [facility] POCT GLUCOSE (AUTOMATED) 2022-06-21 Srinath Cohen Univers ity of 16:35:00 [facility] THYROID STIMULATING HORMONE 2022-06-21 Bin Gomez [facility] ersity of 12:08:00 [facility] COMP. METABOLIC PANEL ([id number]) 2022-06-21 Anastasiya Tapia [facility] of 12:08:00 [facility] CBC WITH DIFF 2022-06-21 Anastasiya Tapia [facility] of 12:08:00 [facility] GLYCOSYLATED HEMOGLOBIN (A1C) 2022-06-21 Bin Gomez iversity of 12:08:00 [facility] THYROID STIMULATING HORMONE 2022-06-21 [facility] 12:08:00 [facility] COMP. METABOLIC PANEL ([id number]) 2022-06-21 Anastasiya Tapia [place] of 12:08:00 [facility] CBC WITH DIFF 2022-06-21 Anastasiya Tapia [place] of 12:08:00 [facility] GLYCOSYLATED HEMOGLOBIN (A1C) 2022-06-21 Bin Gomez iversity of 12:08:00 [facility] COVID-19 (ID NOW RAPID 2022-06-21 Anastasiya Tapia [facility] sity of TESTING) 07:07:00 [facility] LAB ONLY COVID INTERPRETATION 2022-06-21 Anastasiya Tapia [place] of 07:07:00 [facility] COVID-19 (ID NOW RAPID 2022-06-21 Anastasiya Tapia [facility] sity of TESTING) 07:07:00 [facility] LAB ONLY COVID INTERPRETATION 2022-06-21 Anastasiya Tapia [place] of 07:07:00 [facility] LACTIC ACID WHOLE BLOOD 2022-06-21 Srinath Cohen [facility] ty of 04:05:00 [facility] LACTIC ACID WHOLE BLOOD 2022-06-21 Singer Srinath [facility] ty of 04:05:00 [facility] CT HEAD WO CONTRAST 2022-06-21 Singer [facility] o f 00:42:20 [facility] CT HEAD WO CONTRAST 2022-06-21 Singer [facility] o f 00:42:20 [facility] ELECTROENCEPHALOGRAM 2022-06-21 Bin Gomez [place] of 00:00:00 [facility] ELECTROENCEPHALOGRAM 2022-06-21 [facility] of 00:00:00 [facility] LACTIC ACID WHOLE BLOOD 2022-06-20 Srinath Cohen [facility] ty of 23:59:00 [facility] LACTIC ACID WHOLE BLOOD 2022-06-20 Singer [facility] ty of 23:59:00 [facility] CT ANGIOGRAM ABDOMEN/PELVIS 2022-06-20 Srinath Cohen [facility] ersity of 20:21:56 [facility] CT ANGIOGRAM ABDOMEN/PELVIS 2022-06-20 [facility] of 20:21:56 [facility] URINALYSIS 2022-06-20 Srinath Cohen [place] of 19:04:00 [facility] URINE CULTURE 2022-06-20 Srinath Cohen [place] of 19:04:00 [facility] URINALYSIS 2022-06-20 Singer [facility] of 19:04:00 [facility] URINE CULTURE 2022-06-20 Singer [facility] of 19:04:00 [facility] XR CHEST 1 VW 2022-06-20 Singer [facility] of 18:50:20 [facility] XR CHEST 1 VW 2022-06-20 Singer [facility] of 18:50:20 [facility] BLOOD CULTURE SCREEN 2022-06-20 Singer [facility] of 18:46:00 [facility] BLOOD CULTURE SCREEN 2022-06-20 Singer [facility] of 18:46:00 [facility] BLOOD CULTURE SCREEN 2022-06-20 Singer [facility] of 18:39:00 [facility] TROPONIN I 2022-06-20 Singer [facility] of 18:39:00 [facility] COMP. METABOLIC PANEL ([id number]) 2022-06-20 Srinath Cohen iversity of 18:39:00 [facility] CBC WITH DIFF 2022-06-20 Singer [facility] of 18:39:00 [facility] BLOOD CULTURE SCREEN 2022-06-20 Singer [facility] of 18:39:00 [facility] TROPONIN I 2022-06-20 Singer [facility] of 18:39:00 [facility] COMP. METABOLIC PANEL ([id number]) 2022-06-20 Srinath Cohen iversity of 18:39:00 [facility] CBC WITH DIFF 2022-06-20 Singer [facility] of 18:39:00 [facility] EKG-12 LEAD 2022-06-20 Singer [facility] of 18:38:36 [facility] EKG-12 LEAD 2022-06-20 Singer [facility] of 18:38:36 [facility] LACTIC ACID WHOLE BLOOD 2022-06-20 [facility] of 18:38:00 [facility] LACTIC ACID WHOLE BLOOD 2022-06-20 Srinath Cohen [facility] of 18:38:00 [facility] EMERGENCY DEPARTMENT 2022-06-20 Doctor Unassigned, Universi ty of DOCUMENTS 05:01:00 [place] [facility] HOSPITAL ADMISSION 2022-06-20 Doctor Unassigned, University of 05:01:00 [place] [facility] ASSIGNMENT OF BENEFITS 2021-05-07 [facility] 21:31:03 [place] [facility] Plan of Care Planned Activity [...] 00:00:00 [facility] (procedure) [code = 59534461] Future Scheduled 2020-09-[address] [facility] 00:00:00 [facility] (procedure) [code = 42284094] Future Scheduled 2020-09-[address] [facility] 00:00:00 [facility] (procedure) [code = 35215038] Future Scheduled 2020-09-[address] [facility] 00:00:00 [facility] (procedure) [code = 88666709] Future Scheduled 2020-09-[address] [facility] 00:00:00 [facility] (procedure) [code = 35806363] Future Scheduled 2020-09-[address] [facility] 00:00:00 [facility] (procedure) [code = 51072814] Future Scheduled 2020-09-[address] [facility] 00:00:00 [facility] (procedure) [code = 76470861] Future Scheduled 2020-09-[address] [facility] 00:00:00 [facility] (procedure) [code = 56627203] Future Scheduled 2020-09-[address] [facility] 00:00:00 [facility] (procedure) [code = 95587005] Future Scheduled 2020-09-[address] [facility] 00:00:00 [facility] (procedure) [code = 27582551] Future Scheduled 2020-09-[address] [facility] 00:00:00 [facility] (procedure) [code = 30321412] Future Scheduled 2020-09-[address] [...] 00:00:00 (1 of 1 - Medical Center [id number] [id number]) [code = PNEUMOCOCCAL 65+ YRS (1 of 1 - [id number] PCV13)] Future Scheduled 2002 PNEUMOCOCCAL 65+ YRS [facility] Test 00:00:00 (1 of 1 - Medical Center [id number] PCV13) [code = PNEUMOCOCCAL 65+ YRS (1 of 1 - [id number] PCV13)] Future Scheduled 1999-11-11 MEDICARE ANNUAL [facility] [...] 00:00:00 protein (procedure) Medical Center [code = 032935416] Future Scheduled 1947 DIABETIC EYE EXAM [facility] 00:00:00 [code = DIABETIC EYE Medical Center EXAM] Future Scheduled 1947 Urine screening for [facility] Test 00:00:00 protein (procedure) Medical Center [code = 868120297] Future Scheduled 1947 DIABETIC EYE EXAM [facility] 00:00:00 [code = DIABETIC EYE Medical Center EXAM] Future Scheduled 1947 Urine screening for [facility] Test 00:00:00 protein (procedure) Medical Center [code = 914381396] Future Scheduled 1947 DIABETIC EYE EXAM [facility] 00:00:00 [code = DIABETIC EYE Medical Center EXAM] Future Scheduled 1947 Urine screening for [facility] Test 00:00:00 protein (procedure) Medical Center [code = 866802315] Future Scheduled 1947 DIABETIC EYE EXAM [facility] 00:00:00 [code = DIABETIC EYE Medical Center EXAM] Future Scheduled 1947 Urine screening for [facility] Test 00:00:00 protein (procedure) Medical Center [code = 112287150] Future Scheduled 1947 DIABETIC EYE EXAM [facility] 00:00:00 [code = DIABETIC EYE Medical Center EXAM] Future Scheduled 1947 Urine screening for [facility] Test 00:00:00 protein (procedure) Medical Center [code = 009649446] Future Scheduled 1947 DIABETIC EYE EXAM [facility] 00:00:00 [code = DIABETIC EYE Medical Center EXAM] Future Scheduled 1947 Urine screening for [facility] Test 00:00:00 protein (procedure) Medical Center [code = 697757344] Future Scheduled 1947 DIABETIC EYE EXAM [facility] 00:00:00 [code = DIABETIC EYE Medical Center EXAM] Future Scheduled 1947 Urine screening for [facility] Test 00:00:00 protein (procedure) Medical Center [code = 863020021] Future Scheduled 1947 DIABETIC EYE EXAM [facility] 00:00:00 [code = DIABETIC EYE Medical Center EXAM] Future Scheduled 1947 Urine screening for [facility] Test 00:00:00 protein (procedure) Medical Center [code = 756616061] Future Scheduled 1947 DIABETIC EYE EXAM [facility] 00:00:00 [code = DIABETIC EYE Medical Center EXAM] Future Scheduled 1947 Urine screening for [facility] Test 00:00:00 protein (procedure) Medical Center [code = 966415416] Future Scheduled 1947 DIABETIC EYE EXAM [facility] 00:00:00 [code = DIABETIC EYE Medical Center EXAM] Future Scheduled 1947 Urine screening for [facility] Test 00:00:00 protein (procedure) Medical Center [code = 956375638] Future Scheduled 1943 PNEUMOCOCCAL 65+ YRS [facility] [...] DXA [facility] 00:00:00 SCAN] [facility] Center Future Scheduled 1937 DXA SCAN [code = DXA [facility] Test 00:00:00 SCAN] [facility] Center Future Scheduled 1937 DXA SCAN [code = DXA [facility] Test 00:00:00 SCAN] [facility] Center Future Scheduled 1937 DXA SCAN [code = DXA [facility] Test 00:00:00 SCAN] [facility] Center Future Scheduled 1937 DXA SCAN [code = DXA [facility] Test 00:00:00 SCAN] [facility] Center Future Scheduled 1937 DXA SCAN [code = DXA [facility] Test 00:00:00 SCAN] [facility] Center Future Scheduled 1937 DXA SCAN [code = DXA [facility] Test 00:00:00 SCAN] [facility] Center Future Scheduled 1937 DXA SCAN [code = DXA [facility] Test 00:00:00 SCAN] [facility] Center Future Scheduled 1937 DXA SCAN [code = DXA [facility] Test 00:00:00 SCAN] [facility] Center Encounters Start End Encounter Admission Attending Care Care Encounter Source Date/Time Date/Time Type Type Clinicians Facility Department ID 2022-10-12 Outpatient [facility] [id number] [place] 11:19:01 [id number] [facility] 2020-03-24 [facility] [id number] [facility] 23:52:00 JUAQUIN Med 2022-12-22 2022-12-22 [facility] [id number] Univers 00:00:00 00:00:00 GIL[facility] 2022-11-11 2022-11-11 Hospital ELIAS Hyl[place] [id number] Univers 07:05:00 23:59:00 Encounter Inez Montejo [id number] ity of [facility] [id number] Shawn as [id number] [address] 2022-11-11 2022-11-11 [facility] [id number] Univers 00:00:00 23:59:00 INEZ storm [facility] 2022-11-11 2022-11-11 Orders Doctor NEWMAN [id number] Univers 00:00:00 00:00:00 Only Unassigned, RAYA [id number] ity of [place] [facility] [id number] Shawn as [id number] [address] 2022-11-10 2022-11-10 Orders Doctor NEWMAN [id number] Univers 00:00:00 00:00:00 Only Unassigned, RAYA [id number] ity of [place] [facility] [id number] Shawn as [id number] [address] 2022-10-24 2022-11-01 [facility] [id number] Univers 17:16:00 17:33:00 JARVIS [facility] 2022-10-24 2022-11-01 [facility] Liza Quiroz [id number] Univers 17:16:00 17:33:00 Encounter Raul Rosen [id number] ity of [facility] [id number] [place] [id number] [facility] [address] 2022-10-10 2022-10-13 Inpatient E [facility]YL, [facility] [address] [facility] 13:24:00 18:20:00 CASSIUS 2022-10-11 2022-10-11 Telephone [place] [facility] 1.2.840.114 [id number] Univers 00:00:00 00:00:00 [facility] 350.1.13.10 ity of [facility] [place] [phone] [facility] [address] OFFICE BUILDING 2022-10-06 2022-10-08 Outpatient R [facility] [id number] Univers 06:20:00 13:18:00 DAYAMI ity of [facility] 2022-10-06 2022-10-08 Hospital Harini Betancourt 1 .2.840.114 [id number] Univers 06:20:00 13:18:00 Encounter Dayami Love RAYA 350.1.1 3.10 ity of [facility] 4.2.7.2.686 Shawn as [phone] [facility] [address] 2022-10-06 2022-10-06 Surgery VIKTORIA Betancourt 1.2.840.114 [id number] Univers 08:00:00 09:45:00 [facility] 350.1.13.10 ity of [facility] 4.2.7.2.686 Shawn as [phone] [facility] [address] 2022-10-03 2022-10-03 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13.10 ity of [facility] 4.2.7.2.686 Shawn as [phone] [facility] [address] [place] 2022-08-08 2022-08-08 Telephone VIKTORIA Betancourt 1.2.840.114 [id number] Univers 00:00:00 00:00:00 Genewy RAYA 350.1.13.10 ity of [facility] 4.2.7.2.686 Shawn as [id number] [facility] [address] 2022-08-03 2022-08-03 Hospital [place], VIKTORIA 1.2.840.114 [id number] Univers 11:00:00 23:59:00 Encounter Maria Elena SOY 350.1.13.10 ity of [facility] 4.2.7.2.686 Shawn as [phone] [facility] [address] 2022-08-03 2022-08-03 Office SHARIF Betancourt 1.2.840.114 [id number] Univers 13:00:00 13:15:00 Visit [facility] 350.1.13.10 ity of [facility] [place] [id number] [facility] [address] 2022-08-03 2022-08-03 Outpatient R HARINI BETANCOURT [facility] [id number] Univers 13:00:00 13:00:00 HARINI BETANCOURT ity [facility] 2022-08-03 2022-08-03 Orders Doctor NEWMAN 1.2.840.114 [id number] Univers 00:00:00 00:00:00 Only Unassigned, RAYA 350.1.13.10 ity of [facility] 4.2.7.2.686 Shawn as [id number] [facility] [address] 2022-07-14 2022-07-14 Outpatient R HARINI BETANCOURT [facility] [id number] Univers 16:30:12 23:59:00 HARINI BETANCOURT ity of [facility] 2022-07-14 2022-07-14 Hospital VIKTORIA Betancourt 1.2.840.114 [id number] Univers 16:30:12 23:59:00 Encounter Maria Elena DOS SANTOS 350.1.13.10 ity of [facility] 4.2.7.2.686 Shawn as [phone] [facility] [address] 2022-07-14 2022-07-14 Telephone VIKTORIA Betancourt 1.2.840.114 [id number] Univers 00:00:00 00:00:00 Maria Elena SOY 350.1.13.10 ity of [facility] 4.2.7.2.686 Shawn as [phone] [facility] [address] 2022-07-07 2022-07-07 Orders Doctor TRENT 1.2.840.114 [id number] Univers 00:00:00 00:00:00 Only Unassigned, RAYA 350.1.13.10 ity of [place] [facility] 4.2.7.2.686 Shawn as [id number] [facility] [address] 2022-06-27 2022-06-27 Transition ROSE Macias 1.2.840.114 [id number] Univers 00:00:00 00:00:00 of Care Jamil Lilli BERNALY 350.1.13.10 ity of [place].2.[place] [phone] [facility] [address] 2022-06-20 2022-06-25 Inpatient X ALVERTO [facility] [id number] Univers 13:17:00 13:00:00 ACACIA ity of [facility] 2022-06-20 2022-06-25 Hospital Srinath Cohen 1.2.840.1 14 [id number] Univers 13:17:00 13:00:00 Encounter Acacia Del Toro 350.1.13. 10 ity of [facility] 4.2.7.2.686 [place] [id number] [facility] [address] 2022-06-24 2022-06-24 Surgery VIKTORIA Betancourt 1.2.840.114 [id number] Univers 08:35:00 09:20:00 Choelgin RAYA 350.1.13.10 ity of [facility] 4.2.7.2.686 Shawn as [phone] [facility] [address] 2021-05-10 2021-05-10 Nurse Therapy, Kevin Suhid [facility] 1.2. 840.114 [id number] Univers 19:27:33 20:27:33 Visit Unknown, [facility] 350.1.13.10 ity of [place] 4.2.7.2.686 Shawn as Terrell?Blea [phone] [address] Medical Office [facility] 2021-05-10 2021-05-10 Outpatient R ARTHUR, [facility] [id number] Univers 19:30:00 19:30:00 ATTENDING ity [facility] 2021-05-09 2021-05-09 Telephone TRENT Tariq 1.2.320.132 [id number] Univers 00:00:00 00:00:00 Gessica Justyn RAYA 350.1.13.10 ity of [facility] 4.2.7.2.686 Shawn as [id number] [facility] [address] 2021-05-07 2021-05-07 Laboratory Only, Kevin Db Test [facility] 1.2.8 40.114 [id number] Univers 17:11:44 17:31:44 Only [facility] 350.1.13.10 ity of [place] 4.2.7.2.686 Shawn as Terrell?Blea [id number] [address] Medical Office [facility] 2021-05-07 2021-05-07 Outpatient R PAVAN [facility] [id number] Univers 17:15:00 17:15:00 JUD ity [facility] 2021-05-07 2021-05-07 Outpatient R PAVAN [facility] [id number] Univers 16:20:00 16:20:00 JUD ity [facility] 2021-05-07 2021-05-07 Orders Doctor NEWMAN 1.2.840.114 [id number] Univers 00:00:00 00:00:00 Only Unassigned, RAYA 350.1.13.10 ity of [place] [facility] 4.2.7.2.686 Shawn as [id number] [address] 2018-04-03 2018-04-05 Phone nullFlavo MNA [id number] Memoria 20:41:00 04:59:59 Message r Neurosurger 07 l y [facility] 2018-03-28 2018-03-30 Phone nullFlavo MNA [id number] Memoria 15:42:00 04:59:59 Message r Neurosurger 06 l y [facility] 2018-03-26 2018-03-28 Phone nullFlavo MNA [id number] 55 Memoria 16:02:00 04:59:59 Message r Neurosurger 05 l y [facility] 2018-03-22 2018-03-22 Ambulatory nullFlavo MNA [id number] Memoria 17:15:00 17:15:00 Pre-Reg r Neurosurger 01 l y [facility] 2018-03-19 2018-03-21 Phone nullFlavo MNA [id number] 55 Memoria 14:29:00 04:59:59 Message r Neurosurger 04 l y [facility] 2018-03-15 2018-03-17 Phone nullFlavo MNA [id number] 55 Memoria 21:01:00 04:59:59 Message r Neurosurger 03 l y [facility] 2018-03-07 2018-03-09 Phone nullFlavo MNA [id number] 55 Memoria 16:18:00 04:59:59 Message r Neurosurger 02 l y [facility] 2018-03-01 2018-03-03 Phone nullFlavo MNA [id number] 55 Memoria 16:12:00 04:59:59 Message r Neurosurger 01 l y [facility] 2018-03-01 2018-03-03 Phone nullFlavo MNA [id number] 55 Memoria 14:43:00 04:59:59 Message r Neurosurger 00 l y [facility] 2018-03-01 2018-03-01 Ambulatory nullFlavo MNA [id number] Memoria 16:15:00 16:15:00 Pre-Reg r Neurosurger 00 l y [facility] 2018-02-19 2018-02-27 [facility] [id number] Memoria 07:05:00 21:19:00 r Austyn 00 l [facility] 2018-02-05 2018-02-13 Inpatient [facility] [id number] Memoria 22:15:00 16:22:00 r Austyn 48 [facility] Results Test Description Test Time Test Comments Results Result Comments Source POCT GLUCOSE (AUTOMATED) 2022-11-01 17:45:48 Test Item Value Reference Range Interpretation Comme nts POCT GLU (test code = 1834208708) 377 mg/dL 70-110 H Lab Interpretation (test code = 41120-8) [facility] 14:03:36 Test Item Value Reference Range Interpretation Comments POCT GLU (test code = 5382308228) 218 mg/dL 70-110 H Lab Interpretation (test code = Abnormal 40158-9) [facility]2022-11-01 02:05:30 Test Item Value Reference Range Interpretation Comments POCT GLU (test code = 5094186372) 195 mg/dL 70-110 H Lab Interpretation (test code = Abnormal 07883-2) [facility]2022-10-31 22:18:04 Test Item Value Reference Range Interpretation Comments POCT GLU (test code = 7306522301) 200 mg/dL 70-110 H Lab Interpretation (test code = Abnormal 92091-3) [facility] 17:40:15 Test Item Value Reference Range Interpretation Comments POCT GLU (test code = 2539318710) 231 mg/dL 70-110 H Lab Interpretation (test code = Abnormal 77460-5) [facility] GLUCOSE (AUTOMATED)2022-10-31 14:36:10 Test Item Value Reference Range Interpretation Comments POCT GLU (test code = 2432765159) 199 mg/dL 70-110 H Lab Interpretation (test code = Abnormal 04161-6) [facility] GLUCOSE (AUTOMATED)2022-10-31 03:28:00 Test Item Value Reference Range Interpretation Comments POCT GLU (test code = 8835799912) 198 mg/dL 70-110 H Lab Interpretation (test code = Abnormal 07455-0) [facility] GLUCOSE (AUTOMATED)2022-10-30 17:40:57 Test Item Value Reference Range Interpretation Comments POCT GLU (test code = 8065626706) 275 mg/dL 70-110 H Lab Interpretation (test code = Abnormal 35381-9) [facility] GLUCOSE (AUTOMATED)2022-10-30 13:56:28 Test Item Value Reference Range Interpretation Comments POCT GLU (test code = 3929762109) 191 mg/dL 70-110 H Lab Interpretation (test code = Abnormal 58674-9) [facility] WITHOUT [id number] 11:10:09 Test Item Value Reference Range Interpretation Comments WBC (test code = 6690-2) 7.95 See_Comment [A utomated message] The system [employer] generated this result transmit timur reference range : 4.30 - 11.10 10*3/?L. The reference range was not used to interpret this result as normal/abnormal . RBC (test code = 789-8) 3.22 See_Comment L [Au tomated message] The system [employer] generated this result transmit timur reference range [...] 277 See_Comment [Au tomated message] The system [employer] generated this result transmit timur reference range : 166 - 358 10*3/?L. The reference range was not used to interpret this result as normal/abnormal . MPV (test code = 8.4 fL 9.5-12.9 L 41023-9) RDW-CV (test code = 13.3 % 12.0-15.5 788-0) RDW-SD (test code = 41.0 fL 39.0-49.9 05178-4) NRBC x10^3 (test code = See_Comment [Au tomated message] 3515925290) The system [employer] generated this result transmit timur reference range : 10*3/?L. The reference range was not used to interpret this result as normal/abnormal . NRBC/100 WBC (test code 0.0 See_Comment [Au tomated message] = 4129248088) The system [employer] generated this result transmit timur reference range : 0.0 - 10.0 /100 WBC s. The reference r fernando was not used to interpret this result as normal/abnormal . IPF % (test code = 7950806186) Lab Interpretation (test Abnormal code = 57857-9) [facility] GLUCOSE (AUTOMATED)2022-10-30 02:05:21 Test Item Value Reference Range Interpretation Comments POCT GLU (test code = 5246869821) 256 mg/dL 70-110 H Lab Interpretation (test code = Abnormal 71732-1) [facility] GLUCOSE (AUTOMATED)2022-10-29 22:52:51 Test Item Value Reference Range Interpretation Comments POCT GLU (test code = 6182122457) 193 mg/dL 70-110 H Lab Interpretation (test code = Abnormal 68561-7) [facility] GLUCOSE (AUTOMATED)2022-10-29 18:00:29 Test Item Value Reference Range Interpretation Comments POCT GLU (test code = 5608400700) 328 mg/dL 70-110 H Lab Interpretation (test code = Abnormal 53112-1) [facility] GLUCOSE (AUTOMATED)2022-10-29 14:03:49 Test Item Value Reference Range Interpretation Comments POCT GLU (test code = 4520706694) 214 mg/dL 70-110 H Lab Interpretation (test code = Abnormal 31080-7) [facility] GLUCOSE (AUTOMATED)2022-10-29 02:04:31 Test Item Value Reference Range Interpretation Comments POCT GLU (test code = 240 mg/dL 70-110 H Notifi ed Provider [id number]) Lab Interpretation (test Abnormal code = 68197-5) [facility] GLUCOSE (AUTOMATED)2022-10-28 23:29:03 Test Item Value Reference Range Interpretation Comments POCT GLU (test code = 3814457983) 227 mg/dL 70-110 H Lab Interpretation (test code = Abnormal 90744-7) [facility] GLUCOSE (AUTOMATED)2022-10-28 18:26:14 Test Item Value Reference Range Interpretation Comments POCT GLU (test code = 5164866282) 241 mg/dL 70-110 H Lab Interpretation (test code = Abnormal 61693-9) [facility] GLUCOSE (AUTOMATED)2022-10-28 14:37:46 Test Item Value Reference Range Interpretation Comments POCT GLU (test code = 3287062370) 190 mg/dL 70-110 H Lab Interpretation (test code = Abnormal 01322-1) [facility] [place] [place] METABOLIC PANEL (NA, K, CL, CO2, GLUCOSE, BUN, CREATININE, CA)2022-10-28 11:33:48 Test Item Value Reference Range Interpretation Comments NA (test code = 128 mmol/L 135-145 L 2845167668) K (test code = 4.1 mmol/L 3.5-5.0 6211000738) CL (test code = 99 mmol/L 98-108 8279800928) CO2 TOTAL (test code = 24 mmol/L 23-31 1516625794) AGAP (test code = 5 2-16 5302821610) BUN (test code = 15 mg/dL 7-23 7734956107) GLUCOSE (test code = 169 mg/dL 70-110 H 3153765315) CREATININE (test code = 0.55 mg/dL 0.50-1.04 4232357429) CALCIUM (test code = 8.1 mg/dL 8.6-10.6 L 3359877077) eGFR (test code = 105.0 mL/min/1.73m2 2643441415) WINDY (test code = WINDY) Association of [...] tests). Lab Interpretation Abnormal (test code = 69625-1) [facility] WITH [id number] 10:48:02 Test Item Value Reference Range Interpretation Comments WBC (test code = 6.28 See_Comment [Automated 1646-2) message] The sy stem which generated this result transmitted reference range : 4.30 - 11.10 10*3/?L. The reference range was not used to interpret this result as normal/abnormal . RBC (test code = 2.94 See_Comment L [Automated 819-8) message] The sy stem which generated this [...] RDW-SD (test code = 40.9 fL 39.0-49.9 38900-3) RDW-CV (test code = 13.6 % 12.0-15.5 788-0) PLT (test code = 287 See_Comment [Automated 777-3) message] The sy stem which generated this result transmitted reference range : 166 - 358 10*3/ ?L. The reference r fernando was not used to interpret this result as normal/abnormal . MPV (test code = 9.3 fL 9.5-12.9 L 58096-7) NRBC/100 WBC (test 0.0 See_Comment [Automat ed code = 9590721961) message] The system which generated this result transmitted reference range : 0.0 - 10.0 /100 WBCs. The refer ence range was not u sed to interpret th is result as normal/abnormal . NRBC x10^3 (test code See_Comment [Auto mated = 5210445805) message] The s ystem which generated this result transmitted reference range : 10*3/?L. The reference range was not used to interpret this result as normal/abnormal . GRAN MAT (NEUT) % 55.1 % (test code = 770-8) IMM GRAN % (test code 0.50 % = 7067792152) LYMPH % (test code = 31.2 % 736-9) MONO % (test code = 11.6 % 5905-5) EOS % (test code = 1.4 % 713-8) BASO % (test code = 0.2 % 706-2) GRAN MAT x10^3(ANC) 3.46 10*3/uL 1.88-7.09 (test code = 8273489396) IMM GRAN x10^3 (test 0.03 10*3/uL 0.00-0.06 code = 4530249688) LYMPH x10^3 (test code 1.96 10*3/uL 1.32-3.29 = 731-0) MONO x10^3 (test code 0.73 10*3/uL 0.33-0.92 = 742-7) EOS x10^3 (test code = 0.09 10*3/uL 0.03-0.39 711-2) BASO x10^3 (test code 0.01-0.07 = 704-7) Lab Interpretation Abnormal (test code = 18833-1) [facility] GLUCOSE (AUTOMATED)2022-10-28 02:11:22 Test Item Value Reference Range Interpretation Comments POCT GLU (test code = 2834466654) 268 mg/dL 70-110 H Lab Interpretation (test code = Abnormal 04440-9) [facility] GLUCOSE (AUTOMATED)2022-10-27 22:40:13 Test Item Value Reference Range Interpretation Comments POCT GLU (test code = 2191880867) 151 mg/dL 70-110 H Lab Interpretation (test code = Abnormal 13325-2) [facility] GLUCOSE (AUTOMATED)2022-10-27 17:35:16 Test Item Value Reference Range Interpretation Comments POCT GLU (test code = 9257965124) 239 mg/dL 70-110 H Lab Interpretation (test code = Abnormal 81884-0) [facility] GLUCOSE (AUTOMATED)2022-10-27 14:42:18 Test Item Value Reference Range Interpretation Comments POCT GLU (test code = 3255776477) 221 mg/dL 70-110 H Lab Interpretation (test code = Abnormal 01720-4) [facility] GLUCOSE (AUTOMATED)2022-10-27 03:32:29 Test Item Value Reference Range Interpretation Comments POCT GLU (test code = 258 mg/dL 70-110 H Notifi ed Provider [id number]) Lab Interpretation (test Abnormal code = 27897-3) [facility] GLUCOSE (AUTOMATED)2022-10-26 22:32:49 Test Item Value Reference Range Interpretation Comments POCT GLU (test code = 176 mg/dL 70-110 H Notifi ed Provider [id number]) Lab Interpretation (test Abnormal code = 03898-6) [facility] GLUCOSE (AUTOMATED)2022-10-26 17:34:42 Test Item Value Reference Range Interpretation Comments POCT GLU (test code = 307 mg/dL 70-110 H Notifi ed Provider [id number]) Lab Interpretation (test Abnormal code = 99567-5) [facility] GLUCOSE (AUTOMATED)2022-10-26 13:30:00 Test Item Value Reference Range Interpretation Comments POCT GLU (test code = 239 mg/dL 70-110 H Notifi ed Provider [id number]) Lab Interpretation (test Abnormal code = 01262-2) [facility] GLUCOSE (AUTOMATED)2022-10-26 03:40:06 Test Item Value Reference Range Interpretation Comments POCT GLU (test code = 225 mg/dL 70-110 H Notifi ed Provider [id number]) Lab Interpretation (test Abnormal code = 35758-2) [facility] GLUCOSE (AUTOMATED)2022-10-26 01:50:16 Test Item Value Reference Range Interpretation Comments POCT GLU (test code = 0926630012) 240 mg/dL 70-110 H Lab Interpretation (test code = Abnormal 42699-2) [facility] GLUCOSE (AUTOMATED)2022-10-25 22:16:54 Test Item Value Reference Range Interpretation Comments POCT GLU (test code = 4164994425) 188 mg/dL 70-110 H Lab Interpretation (test code = Abnormal 79836-5) [facility] GLUCOSE (AUTOMATED)2022-10-25 17:34:44 Test Item Value Reference Range Interpretation Comments POCT GLU (test code = 176 mg/dL 70-110 H Notifi ed Provider [id number]) Lab Interpretation (test Abnormal code = 50675-9) [facility] GLUCOSE (AUTOMATED)2022-10-25 14:26:21 Test Item Value Reference Range Interpretation Comments POCT GLU (test code = 3910428611) 205 mg/dL 70-110 H Lab Interpretation (test code = Abnormal 94761-7) [facility] [place] [place] METABOLIC PANEL (NA, K, CL, CO2, GLUCOSE, BUN, CREATININE, CA)2022-10-25 10:29:58 Test Item Value Reference Range Interpretation Comments NA (test code = 127 mmol/L 135-145 L 7881391462) K (test code = 3.8 mmol/L 3.5-5.0 3199988610) CL (test code = 90 mmol/L 98-108 L 2560394159) CO2 TOTAL (test code = 29 mmol/L 23-31 3060766819) AGAP (test code = 8 2-16 7599468855) BUN (test code = 21 mg/dL 7-23 1731952697) GLUCOSE (test code = 203 mg/dL 70-110 H 2744312192) CREATININE (test code = 0.68 mg/dL 0.50-1.04 7072816589) CALCIUM (test code = 8.8 mg/dL 8.6-10.6 2120456780) eGFR (test code = 82.2 mL/min/1.73m2 1782711833) WINDY (test code = WINDY) Association of [...] tests). Lab Interpretation Abnormal (test code = 27109-2) [facility] 10:25[facility]19 Test Item Value Reference Range Interpretation Comments APTT Patient (test code 63 See_Comment H [Au tomated message] = 6393-2) The system [employer] generated this result transmitted ref erence range: 26 - 36 Seconds. The reference range was not used to int erpret this result as normal/abnormal . Lab Interpretation (test Abnormal code = 73673-0) [facility] 10:25:19 Test Item Value Reference Range Interpretation Comments Fibrinogen (test code = 0332811336) 574 mg/dL 167-453 H Lab Interpretation (test code = Abnormal 82485-6) [facility] / [id number] 10:25:18 Test Item Value Reference Range Interpretation [...] tions. Lab Interpretation (test Normal code = 18878-8) [facility] with [id number] 10:19:38 Test Item Value Reference Range Interpretation [...] RDW-SD (test code = 39.8 fL 39.0-49.9 79803-7) RDW-CV (test code = 13.3 % 12.0-15.5 788-0) PLT (test code = 333 See_Comment [Automated 777-3) message] The sy stem which generated this result transmitted reference range : 166 - 358 10*3/ ?L. The reference r fernando was not used to interpret this result as normal/abnormal . MPV (test code = 9.3 fL 9.5-12.9 L 48082-3) NRBC/100 WBC (test 0.0 See_Comment [Automat ed code = 7753009087) message] The system which generated this result transmitted reference range : 0.0 - 10.0 /100 WBCs. The refer ence range was not u sed to interpret th is result as normal/abnormal . NRBC x10^3 (test code See_Comment [Auto mated = 3826554471) message] The s ystem which generated this result transmitted reference range : 10*3/?L. The reference range was not used to interpret this result as normal/abnormal . GRAN MAT (NEUT) % 70.8 % (test code = 770-8) IMM GRAN % (test code 0.40 % = 4813542934) LYMPH % (test code = 18.2 % 736-9) MONO % (test code = 10.1 % 5905-5) EOS % (test code = 0.3 % 713-8) BASO % (test code = 0.2 % 706-2) GRAN MAT x10^3(ANC) 7.00 10*3/uL 1.88-7.09 (test code = 2921268120) IMM GRAN x10^3 (test 0.04 10*3/uL 0.00-0.06 code = 7520876011) LYMPH x10^3 (test code 1.80 10*3/uL 1.32-3.29 = 731-0) MONO x10^3 (test code 1.00 10*3/uL 0.33-0.92 H = 742-7) EOS x10^3 (test code = 0.03 10*3/uL 0.03-0.39 711-2) BASO x10^3 (test code 0.01-0.07 = 704-7) Lab Interpretation Abnormal (test code = 72093-3) [facility] Test Item Value Reference Range Interpretation Comments MAGNESIUM (test code = 7393618175) 1.6 mg/dL 1.7-2.4 L Lab Interpretation (test code = Abnormal 80062-0) [facility] [id number] 00:49:15 Test Item Value Reference Range Interpretation Comments NT-proBNP (test code = 444 pg/mL <=450 1409298527) WINDY (test code = WINDY) Biotin has been reported to cause a negative bias, interpret results relative to patient's use of biotin. Lab Interpretation (test Normal code = 19349-7) [facility] [id number] 00:41:33 Test Item Value Reference Range Interpretation Comments TROPONIN I (test code = 0.006 ng/mL <=0.034 6894114158) WINDY (test code = WINDY) Reference (Normal) [...] biotin. Lab Interpretation Normal (test code = 10524-2) [facility]OLIC PAN[facility] (00342)2022-10-25 00:41:13 Test Item Value Reference Range Interpretation Comments NA (test code = 122 mmol/L 135-145 L 4751868430) K (test code = 4.1 mmol/L 3.5-5.0 8392515295) CL (test code = 88 mmol/L 98-108 L 5862466537) CO2 TOTAL (test code = 23 mmol/L 23-31 3428818076) AGAP (test code = 11 2-16 7135550356) BUN (test code = 25 mg/dL 7-23 H 0984579039) GLUCOSE (test code = 206 mg/dL 70-110 H 4654707158) CREATININE (test code = 0.77 mg/dL 0.50-1.04 5278336565) TOTAL BILI (test code = 0.5 mg/dL 0.1-1.0 5491036343) CALCIUM (test code = 9.0 mg/dL 8.6-10.6 0794232898) T PROTEIN (test code = 6.8 g/dL 6.3-8.2 3213853204) ALBUMIN (test code = 4.0 g/dL 3.5-5.0 6770038702) ALK PHOS (test code = 87 U/L 34-122 1069010861) ALTv (test code = 16 U/L 5-35 1742-6) AST(SGOT) (test code = 20 U/L 13-40 2755098023) eGFR (test code = 71.2 mL/min/1.73m2 7774182480) WINDY (test code = WINDY) Association of [...] tests). Lab Interpretation Abnormal (test code = 75947-4) [facility]33 Test Item Value Reference Range Interpretation Comments LIPASE (test code = 4121350799) 39 U/L 0-220 Lab Interpretation (test code = Normal 51056-1) [facility] CenterPROTHROMBIN TIME / [id number] 00:26:52 Test Item Value Reference Range Interpretation [...] tions. Lab Interpretation (test Normal code = 86949-3) [facility] WITH [id number] 00:19:53 Test Item Value Reference Range Interpretation Comments WBC (test code = 12.65 See_Comment H [Automated 7690-2) message] The sy stem which generated this result transmitted reference range : 4.30 - 11.10 10*3/?L. The reference range was not used to interpret this result as normal/abnormal . RBC (test code = 3.77 See_Comment L [Automated 496-8) message] The sy stem which generated this [...] RDW-SD (test code = 39.7 fL 39.0-49.9 12219-9) RDW-CV (test code = 13.3 % 12.0-15.5 788-0) PLT (test code = 379 See_Comment H [Automated 777-3) message] The sy stem which generated this result transmitted reference range : 166 - 358 10*3/ ?L. The reference r fernando was not used to interpret this result as normal/abnormal . MPV (test code = 9.2 fL 9.5-12.9 L 32502-8) NRBC/100 WBC (test 0.0 See_Comment [Automat ed code = 4212854945) message] The system which generated this result transmitted reference range : 0.0 - 10.0 /100 WBCs. The refer ence range was not u sed to interpret th is result as normal/abnormal . NRBC x10^3 (test code See_Comment [Auto mated = 3617702990) message] The s ystem which generated this result transmitted reference range : 10*3/?L. The reference range was not used to interpret this result as normal/abnormal . GRAN MAT (NEUT) % 70.3 % (test code = 770-8) IMM GRAN % (test code 0.80 % = 6825828489) LYMPH % (test code = 18.7 % 736-9) MONO % (test code = 9.8 % 5905-5) EOS % (test code = 0.2 % 713-8) BASO % (test code = 0.2 % 706-2) GRAN MAT x10^3(ANC) 8.90 10*3/uL 1.88-7.09 H (test code = 1144400608) IMM GRAN x10^3 (test 0.10 10*3/uL 0.00-0.06 H code = 9837586491) LYMPH x10^3 (test code 2.36 10*3/uL 1.32-3.29 = 731-0) MONO x10^3 (test code 1.24 10*3/uL 0.33-0.92 H = 742-7) EOS x10^3 (test code = 0.03 10*3/uL 0.03-0.39 711-2) BASO x10^3 (test code 0.01-0.07 = 704-7) Lab Interpretation Abnormal (test code = 32565-5) [facility] GLUCOSE (AUTOMATED)2022-10-08 15:06:32 Test Item Value Reference Range Interpretation Comments POCT GLU (test code = 8561264513) 162 mg/dL 70-110 H Lab Interpretation (test code = Abnormal 35123-4) [facility] GLUCOSE (AUTOMATED)2022-10-08 15:06:32 Test Item Value Reference Range Interpretation Comments POCT GLU (test code = 7919716004) 162 mg/dL 70-110 H Lab Interpretation (test code = Abnormal 75594-4) [facility] GLUCOSE (AUTOMATED)2022-10-08 03:55:19 Test Item Value Reference Range Interpretation Comments POCT GLU (test code = 9376339945) 279 mg/dL 70-110 H Lab Interpretation (test code = Abnormal 72961-7) [facility] GLUCOSE (AUTOMATED)2022-10-08 03:55:19 Test Item Value Reference Range Interpretation Comments POCT GLU (test code = 9561736220) 279 mg/dL 70-110 H Lab Interpretation (test code = Abnormal 57822-9) [facility] GLUCOSE (AUTOMATED)2022-10-08 03:11:05 Test Item Value Reference Range Interpretation Comments POCT GLU (test code = 5639421675) 322 mg/dL 70-110 H Lab Interpretation (test code = Abnormal 21803-8) [facility] GLUCOSE (AUTOMATED)2022-10-08 03:11:05 Test Item Value Reference Range Interpretation Comments POCT GLU (test code = 5237402269) 322 mg/dL 70-110 H Lab Interpretation (test code = Abnormal 36612-9) [facility] CenterProthrombin Time / [id number] 17:14:10 Test Item Value Reference Range Interpretation Comments PROTIME PATIENT (test See_Comment [Auto mated message] code = 5964-2) The system [employer] generated this result transmitted ref erence range: 12.0 - 1 4.7 Seconds. The re ference range was not u sed to interpret this result as normal/abnor mal. INR (test code = 6301-6) Nor mal INR <1.1; Warfarin Therap eutic range 2.0 to 3. 0 or 2.5 to 3.5, dep ending upon the indica tions. Lab Interpretation (test Normal code = 83460-2) [facility] WITH [id number] 17:07:07 Test Item Value Reference Range Interpretation [...] RDW-SD (test code = 47.4 fL 39.0-49.9 84027-2) RDW-CV (test code = 15.6 % 12.0-15.5 H 788-0) PLT (test code = See_Comment [Automated 777-3) message] The sy stem which generated this result transmitted reference range : 166 - 358 10*3/ ?L. The reference r fernando was not used to interpret this result as normal/abnormal . MPV (test code = 9.8 fL 9.5-12.9 72695-5) NRBC/100 WBC (test See_Comment [Automat ed code = 3139333239) message] The system which generated this result transmitted reference range : 0.0 - 10.0 /100 WBCs. The refer ence range was not u sed to interpret th is result as normal/abnormal . NRBC x10^3 (test code See_Comment [Auto mated = 1466153128) message] The s ystem which generated this result transmitted reference range : 10*3/?L. The reference range was not used to interpret this result as normal/abnormal . GRAN MAT (NEUT) % 54.5 % (test code = 770-8) IMM GRAN % (test code 0.40 % = 4126197353) LYMPH % (test code = 36.8 % 736-9) MONO % (test code = 7.0 % 5905-5) EOS % (test code = 1.1 % 713-8) BASO % (test code = 0.2 % 706-2) GRAN MAT x10^3(ANC) 2.96 10*3/uL 1.88-7.09 (test code = 0924599028) IMM GRAN x10^3 (test 0.00-0.06 code = 0021087036) LYMPH x10^3 (test code 2.00 10*3/uL 1.32-3.29 = 731-0) MONO x10^3 (test code 0.38 10*3/uL 0.33-0.92 = 742-7) EOS x10^3 (test code = 0.06 10*3/uL 0.03-0.39 711-2) BASO x10^3 (test code 0.01-0.07 = 704-7) Lab Interpretation Abnormal (test code = 02638-4) [facility] CenterMETANEPHRINES, [id number] 20:47:27 Test Item Value Reference Range Interpretation Comments METANEPH (test <0.10 0.00-0.49 code = 33417-6) NORMETNEPH (test 0.83 nmol/L 0.00-0.89 code = 73884-9) METAPF INT (test See Note INTERPRETIV E code = 58204-3) INFORMATION: Metanephrines, Plasma (Free) This nacho t [...] its perform ance characteristics determined by A [facility]. I t has not been cleared or approved by the [place] Food and Drug Administration. This test was perfor med in a CLIA certified laboratory and is intended for cl inical purposes.Perfor med By: [facility] [place] [id number] aboratory Director: Juan Espinosa MD, PhD [facility] GLUCOSE (AUTOMATED)2022-06-25 17:12:53 Test Item Value Reference Range Interpretation Comments POCT GLU (test code = 5258711764) 200 mg/dL 70-110 H Lab Interpretation (test code = Abnormal 40924-7) [facility] GLUCOSE (AUTOMATED)2022-06-25 17:12:53 Test Item Value Reference Range Interpretation Comments POCT GLU (test code = 6004598178) 200 mg/dL 70-110 H Lab Interpretation (test code = Abnormal 76638-0) [facility] GLUCOSE (AUTOMATED)2022-06-25 14:20:12 Test Item Value Reference Range Interpretation Comments POCT GLU (test code = 0686875452) 171 mg/dL 70-110 H Lab Interpretation (test code = Abnormal 81546-0) [facility] GLUCOSE (AUTOMATED)2022-06-25 14:20:12 Test Item Value Reference Range Interpretation Comments POCT GLU (test code = 9650366034) 171 mg/dL 70-110 H Lab Interpretation (test code = Abnormal 57143-5) [facility] GLUCOSE (AUTOMATED)2022-06-25 01:30:55 Test Item Value Reference Range Interpretation Comments POCT GLU (test code = 5122126596) 207 mg/dL 70-110 H Lab Interpretation (test code = Abnormal 65967-8) [facility] GLUCOSE (AUTOMATED)2022-06-25 01:30:55 Test Item Value Reference Range Interpretation Comments POCT GLU (test code = 7883374337) 207 mg/dL 70-110 H Lab Interpretation (test code = Abnormal 18101-2) [facility] GLUCOSE (AUTOMATED)2022-06-24 22:26:40 Test Item Value Reference Range Interpretation Comments POCT GLU (test code = 8449420233) 195 mg/dL 70-110 H Lab Interpretation (test code = Abnormal 55974-1) [facility] GLUCOSE (AUTOMATED)2022-06-24 22:26:40 Test Item Value Reference Range Interpretation Comments POCT GLU (test code = 3178489855) 195 mg/dL 70-110 H Lab Interpretation (test code = Abnormal 80624-1) [facility] GLUCOSE (AUTOMATED)2022-06-24 18:07:03 Test Item Value Reference Range Interpretation Comments POCT GLU (test code = 8259352116) 376 mg/dL 70-110 H Lab Interpretation (test code = Abnormal 84232-9) [facility] GLUCOSE (AUTOMATED)2022-06-24 18:07:03 Test Item Value Reference Range Interpretation Comments POCT GLU (test code = 9968939440) 376 mg/dL 70-110 H Lab Interpretation (test code = Abnormal 29808-2) [facility]MAG[facility]UM[facility] 17:45:35 Test Item Value Reference Range Interpretation Comments MAGNESIUM (test code = 5326422552) 1.9 mg/dL 1.7-2.4 Lab Interpretation (test code = Normal 69175-1) [facility] [place], [place] METABOLIC PANEL (NA, K, CL, CO2, GLUCOSE, BUN, CREATININE, CA)2022-06-24 17:45:35 Test Item Value Reference Range Interpretation Comments NA (test code = 137 mmol/L 135-145 1142487692) K (test code = 3.3 mmol/L 3.5-5 L 5324563633) CL (test code = 101 mmol/L 98-108 4875800711) CO2 TOTAL (test code = 25 mmol/L 23-31 4177823590) AGAP (test code = 2-16 1856545693) BUN (test code = 17 mg/dL 7-23 7318785949) GLUCOSE (test code = 264 mg/dL 70-110 H 5823559647) CREATININE (test code = 0.94 mg/dL 0.5-1.04 5840737849) CALCIUM (test code = 9.1 mg/dL 8.6-10.6 0315529721) eGFR (test code = mL/min/1.73m2 0674902714) WINDY (test code = WINDY) Association of [...] tests). Lab Interpretation Abnormal (test code = 09742-6) [facility] 17:45:35 Test Item Value Reference Range Interpretation Comments MAGNESIUM (test code = 9438810842) 1.9 mg/dL 1.7-2.4 Lab Interpretation (test code = Normal 78234-1) [facility] Center[facility]OLIC PAN[facility] (NA, K, CL, CO2, GLUCOSE, BUN, CREATININE, CA)2022-06-24 17:45:35 Test Item Value Reference Range Interpretation Comments NA (test code = 137 mmol/L 135-145 5067302219) K (test code = 3.3 mmol/L 3.5-5 L 2707899443) CL (test code = 101 mmol/L 98-108 6114179541) CO2 TOTAL (test code = 25 mmol/L 23-31 9227056342) AGAP (test code = 2-16 6214370510) BUN (test code = 17 mg/dL 7-23 5490867393) GLUCOSE (test code = 264 mg/dL 70-110 H 7151448199) CREATININE (test code = 0.94 mg/dL 0.5-1.04 4766964479) CALCIUM (test code = 9.1 mg/dL 8.6-10.6 1046014765) eGFR (test code = mL/min/1.73m2 9262420623) WINDY (test code = WINDY) Association of [...] tests). Lab Interpretation Abnormal (test code = 68332-7) [facility] WITHOUT [id number] 17:37:52 Test Item Value Reference Range Interpretation Comments WBC (test code = 6690-2) See_Comment [A utomated message] The system [employer] generated this result transmit timur reference range : 4.30 - 11.10 10*3/?L. The reference range was not used to interpret this result as normal/abnormal . RBC (test code = 789-8) See_Comment [Au tomated message] The system [employer] generated this result transmit timur reference range [...] 777-3) See_Comment [Au tomated message] The system [employer] generated this result transmit timur reference range : 166 - 358 10*3/?L. The reference range was not used to interpret this result as normal/abnormal . MPV (test code = 9.0 fL 9.5-12.9 L 82595-6) RDW-CV (test code = 16.6 % 12-15.5 H 788-0) RDW-SD (test code = 44.0 fL 39-49.9 52552-5) NRBC x10^3 (test code = See_Comment [Au tomated message] 3293059759) The system [employer] generated this result transmit timur reference range : 10*3/?L. The reference range was not used to interpret this result as normal/abnormal . NRBC/100 WBC (test code See_Comment [Au tomated message] = 9838553068) The system [facility] generated this result transmit timur reference range : 0.0 - 10.0 /100 WBC s. The reference r fernando was not used to interpret this result as normal/abnormal . IPF % (test code = 5759053252) Lab Interpretation (test Abnormal code = 62801-7) [facility] WITHOUT [id number] 17:37:52 Test Item Value Reference Range Interpretation Comments WBC (test code = 6690-2) See_Comment [A utomated message] The system [employer] generated this result transmit timur reference range : 4.30 - 11.10 10*3/?L. The reference range was not used to interpret this result as normal/abnormal . RBC (test code = 789-8) See_Comment [Au tomated message] The system [employer] generated this result transmit timur reference range [...] 777-3) See_Comment [Au tomated message] The system [employer] generated this result transmit timur reference range : 166 - 358 10*3/?L. The reference range was not used to interpret this result as normal/abnormal . MPV (test code = 9.0 fL 9.5-12.9 L 94015-4) RDW-CV (test code = 16.6 % 12-15.5 H 788-0) RDW-SD (test code = 44.0 fL 39-49.9 01641-0) NRBC x10^3 (test code = See_Comment [Au tomated message] 5216512342) The system [employer] generated this result transmit timur reference range : 10*3/?L. The reference range was not used to interpret this result as normal/abnormal . NRBC/100 WBC (test code See_Comment [Au tomated message] = 1801346908) The system [employer] generated this result transmit timur reference range : 0.0 - 10.0 /100 WBC s. The reference r fernando was not used to interpret this result as normal/abnormal . IPF % (test code = 6468520801) Lab Interpretation (test Abnormal code = 64770-7) [facility] GLUCOSE (AUTOMATED)2022-06-24 13:05:03 Test Item Value Reference Range Interpretation Comments POCT GLU (test code = 8873198160) 175 mg/dL 70-110 H Lab Interpretation (test code = Abnormal 99541-4) [facility] GLUCOSE (AUTOMATED)2022-06-24 13:05:03 Test Item Value Reference Range Interpretation Comments POCT GLU (test code = 4867144644) 175 mg/dL 70-110 H Lab Interpretation (test code = Abnormal 96065-9) [facility] GLUCOSE (AUTOMATED)2022-06-24 03:59:23 Test Item Value Reference Range Interpretation Comments POCT GLU (test code = 3144571469) 200 mg/dL 70-110 H Lab Interpretation (test code = Abnormal 24519-4) [facility] GLUCOSE (AUTOMATED)2022-06-24 03:59:23 Test Item Value Reference Range Interpretation Comments POCT GLU (test code = 7371602536) 200 mg/dL 70-110 H Lab Interpretation (test code = Abnormal 39822-1) [facility] GLUCOSE (AUTOMATED)2022-06-23 22:39:44 Test Item Value Reference Range Interpretation Comments POCT GLU (test code = 7621516623) 210 mg/dL 70-110 H Lab Interpretation (test code = Abnormal 26925-6) [facility] GLUCOSE (AUTOMATED)2022-06-23 22:39:44 Test Item Value Reference Range Interpretation Comments POCT GLU (test code = 1048419971) 210 mg/dL 70-110 H Lab Interpretation (test code = Abnormal 97186-9) [facility] GLUCOSE (AUTOMATED)2022-06-23 17:10:04 Test Item Value Reference Range Interpretation Comments POCT GLU (test code = 4700531810) 189 mg/dL 70-110 H Lab Interpretation (test code = Abnormal 04739-1) [facility] GLUCOSE (AUTOMATED)2022-06-23 17:10:04 Test Item Value Reference Range Interpretation Comments POCT GLU (test code = 5485361221) 189 mg/dL 70-110 H Lab Interpretation (test code = Abnormal 54306-1) [facility] GLUCOSE (AUTOMATED)2022-06-23 12:33:02 Test Item Value Reference Range Interpretation Comments POCT GLU (test code = 9465294185) 193 mg/dL 70-110 H Lab Interpretation (test code = Abnormal 30709-3) [facility] GLUCOSE (AUTOMATED)2022-06-23 12:33:02 Test Item Value Reference Range Interpretation Comments POCT GLU (test code = 9454408185) 193 mg/dL 70-110 H Lab Interpretation (test code = Abnormal 63896-5) [facility] GLUCOSE (AUTOMATED)2022-06-23 02:42:00 Test Item Value Reference Range Interpretation Comments POCT GLU (test code = 0005518509) 166 mg/dL 70-110 H Lab Interpretation (test code = Abnormal 48869-3) [facility] GLUCOSE (AUTOMATED)2022-06-23 02:42:00 Test Item Value Reference Range Interpretation Comments POCT GLU (test code = 9187767126) 166 mg/dL 70-110 H Lab Interpretation (test code = Abnormal 79233-5) [facility] CenterPhosphor [id number] 23:14:43 Test Item Value Reference Range Interpretation Comments PHOSPHORUS (test code = 3.1 mg/dL 2.5-5 Slig ht hemolysis 5206808074) Lab Interpretation (test Normal code = 73034-0) [facility] [id number] 23:14:43 Test Item Value Reference Range Interpretation Comments PHOSPHORUS (test code = 3.1 mg/dL 2.5-5 Slig ht hemolysis 8583911037) Lab Interpretation (test Normal code = 82382-1) [facility] GLUCOSE (AUTOMATED)2022-06-22 22:01:14 Test Item Value Reference Range Interpretation Comments POCT GLU (test code = 4290061229) 216 mg/dL 70-110 H Lab Interpretation (test code = Abnormal 40553-4) [facility] GLUCOSE (AUTOMATED)2022-06-22 22:01:14 Test Item Value Reference Range Interpretation Comments POCT GLU (test code = 0934693548) 216 mg/dL 70-110 H Lab Interpretation (test code = Abnormal 16570-0) [facility] GLUCOSE (AUTOMATED)2022-06-22 16:56:03 Test Item Value Reference Range Interpretation Comments POCT GLU (test code = 6509909160) 170 mg/dL 70-110 H Lab Interpretation (test code = Abnormal 27037-4) [facility] GLUCOSE (AUTOMATED)2022-06-22 16:56:03 Test Item Value Reference Range Interpretation Comments POCT GLU (test code = 5259973152) 170 mg/dL 70-110 H Lab Interpretation (test code = Abnormal 10134-1) [facility] GLUCOSE (AUTOMATED)2022-06-22 13:15:17 Test Item Value Reference Range Interpretation Comments POCT GLU (test code = 9193767860) 186 mg/dL 70-110 H Lab Interpretation (test code = Abnormal 41127-5) [facility] GLUCOSE (AUTOMATED)2022-06-22 13:15:17 Test Item Value Reference Range Interpretation Comments POCT GLU (test code = 1729851735) 186 mg/dL 70-110 H Lab Interpretation (test code = Abnormal 62287-2) [facility] GLUCOSE (AUTOMATED)2022-06-22 00:55:28 Test Item Value Reference Range Interpretation Comments POCT GLU (test code = 6436701104) 201 mg/dL 70-110 H Lab Interpretation (test code = Abnormal 03495-1) [facility] GLUCOSE (AUTOMATED)2022-06-22 00:55:28 Test Item Value Reference Range Interpretation Comments POCT GLU (test code = 1863162546) 201 mg/dL 70-110 H Lab Interpretation (test code = Abnormal 56386-8) [facility]22-[facility]-21 22:48:56 Test Item Value Reference Range Interpretation Comments Height (test code = in 8056217668) Weight (test code = lbs 7877464161) Systolic BP (test code = mmHg 8851137519) Diastolic BP (test code mmHg = 8979227616) Heart Rate (test code = bpm 9228663337) LVOT stroke volume (test 79.70 cm3 code = 0271945967) EF(Teich) (test code = 56.30 % 0169909506) LVIDD (test code = 4.60 cm 8610685838) LVIDS (test code = 3.30 cm 5041951972) Left Ventricular End 43.5 mL Systolic Volume by Teichholz Method (test code = 2767952) Left Ventricular End 99.6 mL Diastolic Volume by Teichholz Method (test code = 4287428) IVS (test code = 1.19 cm 2750257847) LVPWD (test code = 1.08 cm 6497136338) LVOT diameter (test code 2.05 cm = 9593898004) LVOT area (test code = 3.30 cm2 7558602886) FS (test code = 29 % 1335256757) MV Peak E Tian (test code 84.6 cm/s = 9283704369) MV Peak A Tian (test code 110.3 cm/s = 4624838932) E/A ratio (test code = ratio 4163124249) E wave decelartion time 0.25 s (test code = 4886533348) MV E/e' septal (test 4.0 cm/s code = 9031138766) LA Volume Index (BP) 36.7 mL/m2 (test code = 9405923814) LA volume (BP) (test 65.4 mL code = 3166434878) LVOT peak tian (test code 100.1 cm/s = 1753390572) LVOT mn grad (test code mmHg = 4096137234) BSA (test code = 1.78 m2 6659229937) LA size (test code = 3.4 cm 9621182991) LAV(MOD-sp2) (test code 61.30 mL = 9036055700) LAV(MOD-sp4) (test code 58.90 mL = 5838288298) Tapse (test code = 2.48 cm 8759217816) AV LVOT peak gradient mmHg (test code = 9208325118) LVOT peak VTI (test code 24.2 cm = 9933330195) LV V1 mean (test code = 64.80 cm/s 1639242334) MV Prop V (test code = 31.70 cm/s 3408622218) Ao root diam (test code 3.40 cm = 3826931049) Aortic root (test code = 3.4 cm 2700338916) Ao root annulus (test 3.4 cm code = 8955230173) PW (test code = 1.08 cm 0.6-1.7 1262285892) EF - 2D (test code = 56.30 % 05930805) Interventricular Septum 1.19 cm Diastolic Thickness by 2D (test code = 9474901) Left Ventricular Cardiac 4.8 L/min Output (test code = 0656997) Aortic HR (test code = BPM 3918068589) Aortic valve mean 86.9 cm/s velocity (test code = 9653085923) Ao peak tian (test code = 153.7 cm/s 6013258107) Ao VTI (test code = 33.7 cm 0123757026) AV area by cont VTI 2.4 cm2 (test code = 5551126493) AV area peak tian (test 2.2 cm2 code = 1072374635) Ao max PG (test code = 9.40 mm[Hg] 2645910965) AV peak gradient (test mmHg code = 6222249951) AV valve area (test code 2.37 cm2 = 4167926517) AV mean gradient (test mmHg code = 2465821065) IVC Diam Exp(MM) (test 1.87 cm code = 5005505144) IVC Diam Ins(MM) (test 0.78 cm code = 8658236198) Radiology Study observation (narrative) (test code = 27688-2) WINDY (test code = WINDY) ?Left?Ventricle: Left [...] enhancing agent used. Patient exhibited sinus bradycardia. [facility] 22:48:56 Test Item Value Reference Range Interpretation Comments Height (test code = in 4875385616) Weight (test code = lbs 4082490253) Systolic BP (test code = mmHg 2332992096) Diastolic BP (test code mmHg = 0095859721) Heart Rate (test code = bpm 6156322111) LVOT stroke volume (test 79.70 cm3 code = 1288634075) EF(Teich) (test code = 56.30 % 9459406861) LVIDD (test code = 4.60 cm 4012488813) LVIDS (test code = 3.30 cm 4379960340) Left Ventricular End 43.5 mL Systolic Volume by Teichholz Method (test code = 8494647) Left Ventricular End 99.6 mL Diastolic Volume by Teichholz Method (test code = 2568363) IVS (test code = 1.19 cm 3766498467) LVPWD (test code = 1.08 cm 4242783127) LVOT diameter (test code 2.05 cm = 2120037073) LVOT area (test code = 3.30 cm2 5655606620) FS (test code = 29 % 8171596464) MV Peak E Tian (test code 84.6 cm/s = 1562848070) MV Peak A Tian (test code 110.3 cm/s = 1472622800) E/A ratio (test code = ratio 0357842144) E wave decelartion time 0.25 s (test code = 6037803875) MV E/e' septal (test 4.0 cm/s code = 8036813828) LA Volume Index (BP) 36.7 mL/m2 (test code = 7058942691) LA volume (BP) (test 65.4 mL code = 0021992286) LVOT peak tian (test code 100.1 cm/s = 9961124361) LVOT mn grad (test code mmHg = 4104130015) BSA (test code = 1.78 m2 6151105932) LA size (test code = 3.4 cm 8997785741) LAV(MOD-sp2) (test code 61.30 mL = 4091093870) LAV(MOD-sp4) (test code 58.90 mL = 7296244127) Tapse (test code = 2.48 cm 5671245929) AV LVOT peak gradient mmHg (test code = 6334417199) LVOT peak VTI (test code 24.2 cm = 8507087772) LV V1 mean (test code = 64.80 cm/s 1814789655) MV Prop V (test code = 31.70 cm/s 2469127048) Ao root diam (test code 3.40 cm = 8593532512) Aortic root (test code = 3.4 cm 5782193916) Ao root annulus (test 3.4 cm code = 5134028554) PW (test code = 1.08 cm 0.6-1.9 6920293930) EF - 2D (test code = 56.30 % 11767394) Interventricular Septum 1.19 cm Diastolic Thickness by 2D (test code = 1362596) Left Ventricular Cardiac 4.8 L/min Output (test code = 5374635) Aortic HR (test code = BPM 7545710227) Aortic valve mean 86.9 cm/s velocity (test code = 0596846351) Ao peak tian (test code = 153.7 cm/s 3146971032) Ao VTI (test code = 33.7 cm 3839932436) AV area by cont VTI 2.4 cm2 (test code = 1493180340) AV area peak tian (test 2.2 cm2 code = 6889412868) Ao max PG (test code = 9.40 mm[Hg] 9979204095) AV peak gradient (test mmHg code = 8836095696) AV valve area (test code 2.37 cm2 = 0726723921) AV mean gradient (test mmHg code = 1695742889) IVC Diam Exp(MM) (test 1.87 cm code = 1007554831) IVC Diam Ins(MM) (test 0.78 cm code = 3456411560) Radiology Study observation (narrative) (test code = 76548-2) WINDY (test code = WINDY) ?Left?Ventricle: Left [...] enhancing agent used. Patient exhibited sinus bradycardia. [facility] GLUCOSE (AUTOMATED)2022-06-21 21:50:29 Test Item Value Reference Range Interpretation Comments POCT GLU (test code = 1113434039) 181 mg/dL 70-110 H Lab Interpretation (test code = Abnormal 96056-3) [facility] GLUCOSE (AUTOMATED)2022-06-21 21:50:29 Test Item Value Reference Range Interpretation Comments POCT GLU (test code = 5315629051) 181 mg/dL 70-110 H Lab Interpretation (test code = Abnormal 46168-5) [facility] GLUCOSE (AUTOMATED)2022-06-21 20:55:06 Test Item Value Reference Range Interpretation Comments POCT GLU (test code = 4819886932) 159 mg/dL 70-110 H Lab Interpretation (test code = Abnormal 02077-7) [facility] GLUCOSE (AUTOMATED)2022-06-21 20:55:06 Test Item Value Reference Range Interpretation Comments POCT GLU (test code = 8141287179) 159 mg/dL 70-110 H Lab Interpretation (test code = Abnormal 24260-3) [facility]-GLUCOSE [id number] 11:32:00 Test Item Value Reference Range Interpretation Comments POC-GLUCOSE METER 235 mg/dL 70-110 H : TESTED A T [facility] 6720 (BEAKER) (test code = [facility], 1538) 94163: Glove Maker/Techni chika ID = [id number] for QUEEN LASSITER POCT-GLUCOSE [id number] 07:37:00 Test Item Value Reference Range Interpretation Comments POC-GLUCOSE METER 190 mg/dL 70-110 H : TESTED A T [facility] 6720 (BEAKER) (test code = [facility] [employer] Local [facility], 1538) [address]: Glove Maker/Techni chika ID = [id number] for QUEEN LASSITER CBC W/PLT COUNT & AUTO [id number] 06:10:00 Test Item Value Reference Range Interpretation [...] PERCENT (BEAKER) (test code = 2801) POCT-GLUCOSE [id number] 22:16:00 Test Item Value Reference Range Interpretation Comments POC-GLUCOSE METER 275 mg/dL 70-110 H : TESTED A T [facility] 6720 (BEAKER) (test code = [facility], 153) 89957: Glove Maker/Techni chika ID = [id number] for YRIS HENAO POCT-GLUCOSE [id number] 16:44:00 Test Item Value Reference Range Interpretation Comments POC-GLUCOSE METER 200 mg/dL 70-110 H : TESTED A T [facility] 6720 (BEAKER) (test code = [facility], 1538) 12223: Glove Maker/Techni chika ID = [id number] for QUEEN LASSITER POCT-GLUCOSE [id number] 12:11:00 Test Item Value Reference Range Interpretation Comments POC-GLUCOSE METER 180 mg/dL 70-110 H : TESTED A T [facility] 6720 (BEAKER) (test code = [facility], 153) 81985: Glove Maker/Techni chika ID = [id number] for NW CATHERINE, SHAYY POCT-GLUCOSE [id number] 08:17:00 Test Item Value Reference Range Interpretation Comments POC-GLUCOSE METER 158 mg/dL 70-110 H : TESTED A T [facility] 6720 (BEAKER) (test code = [facility], 153) 87786: Glove Maker/Techni chika ID = [id number] for NW AJIAKU, SHAYY CBC W/PLT COUNT & AUTO [id number] 04:14:00 Test Item Value Reference Range Interpretation [...] PERCENT (BEAKER) (test code = 2801) POCT-GLUCOSE [id number] 16:12:00 Test Item Value Reference Range Interpretation Comments POC-GLUCOSE METER 233 mg/dL 70-110 H : TESTED A T [facility] 6720 (BEAKER) (test code = [facility], 1538) 28394: Glove Maker/Techni chika ID = [id number] for NW SHAYY ALEXANDER POCT-GLUCOSE [id number] 12:02:00 Test Item Value Reference Range Interpretation Comments POC-GLUCOSE METER 190 mg/dL 70-110 H : TESTED A T [facility] 6720 (BEAKER) (test code = [facility], 1538) 13430: Glove Maker/Techni chika ID = [id number] for SHAYY ALBRIGHT STOOL CULTURE + SHIGA [id number] 09:19:00 Test Item Value Reference Range Interpretation Comments CULTURE (BEAKER) No Salmonella, Shigella (test code = 1095) or Campylobacter isolated POCT-GLUCOSE [id number] 07:46:00 Test Item Value Reference Range Interpretation Comments POC-GLUCOSE METER 174 mg/dL 70-110 H : TESTED Lilli T [facility] 6720 (BEAKER) (test code = DINA V[place], 1538) 802[address]: Glove Maker/Techni chika ID = [id number] for SHAYY ALBRIGHT CBC W/PLT COUNT & AUTO [id number] 06:53:00 Test Item Value Reference Range Interpretation [...] 0-1 PERCENT (BEAKER) (test code = 2801) [id number] 06:20:00 Test Item Value Reference Range Interpretation Comments MAGNESIUM (BEAKER) 1.7 mg/dL 1.6-2.6 Specimen slightly (test code = 627) hemolyzed Glove Maker ID - LATA WBASIC METABOLIC [id number] 06:20:00 Test Item Value Reference Range Interpretation [...] S NOT APPLICABLE FOR DIALYSIS PATIEN TS. Glove Maker ID - LATA WHEPATIC FUNCTION [id number] 06:20:00 Test Item Value Reference Range Interpretation [...] Specimen slightly (test code = 347) hemolyzed Glove Maker ID - LATA WPOCT-GLUCOSE [id number] 21:46:00 Test Item Value Reference Range Interpretation Comments POC-GLUCOSE METER 181 mg/dL 70-110 H : TESTED A T [facility] 6720 (BEAKER) (test code = [facility] [place], 1538) 41837: Glove Maker/Techni chika ID = [id number] for JEREMY GUPTA CT, BRAIN, WITHOUT [id number] 18:11:00FINAL REPORT CT, BRAIN, WITHOUT CONTRAST INDICATION: [...] Annmarie Burch Verified Date/Time: 03/26/2020 18:11:57 POCT-GLUCOSE [id number] 17:31:00 Test Item Value Reference Range Interpretation Comments POC-GLUCOSE METER 209 mg/dL 70-110 H : Notified RN/MD: ([facility]) (test code = TESTED AT [facility] 6720 1538) [facility], [address]: Glove Maker/Techni chika ID = [id number] for MEERA LEMOS SHIGA TOXIN [id number] 15:19:00 Test Item Value Reference Range Interpretation Comments SHIGA TOXIN 1 ([facility]) (test Not detected Not detected code = 2177) SHIGA TOXIN 2 ([facility]) (test Not detected Not detected code = 2179) POCT-GLUCOSE [id number] 11:53:00 Test Item Value Reference Range Interpretation Comments POC-GLUCOSE METER 159 mg/dL 70-110 H [facility] (test code = [facility], 1538) 82018: Glove Maker/Techni chika ID = [id number] for SANDRA HOLLIS STOOL PATH [id number] 11:36:00 Test Item Value Reference Range Interpretation Comments PATHOGEN EXAM CHARGED ([facility]) (test Done code = 2381) POCT-GLUCOSE [id number] 07:11:00 Test Item Value Reference Range Interpretation Comments POC-GLUCOSE METER 146 mg/dL 70-110 H [facility]) (test code = [facility], 153) 64691: Glove Maker/Techni chika ID = [id number] for MILY GROVE [id number] 06:04:00 Test Item Value Reference Range Interpretation Comments MAGNESIUM (BEAKER) (test code = 1.9 mg/dL 1.6-2.6 627) Glove Maker JAIME EDWARD LBASIC METABOLIC [id number] 06:04:00 Test Item Value Reference Range Interpretation [...] S NOT APPLICABLE FOR DIALYSIS PATIEN TS. Glove Maker ID Sumna EDWARD LHEPATIC FUNCTION [id number] 06:04:00 Test Item Value Reference Range Interpretation [...] (test code = 15 U/L 6-55 347) Glove Maker JAIME EDWARD LCBC W/PLT COUNT & AUTO [id number] 05:20:00 Test Item Value Reference Range Interpretation [...] PERCENT (BEAKER) (test code = 2801) POCT-GLUCOSE [id number] 21:12:00 Test Item Value Reference Range Interpretation Comments POC-GLUCOSE METER 154 mg/dL 70-110 H : TESTED A T [facility] 6720 (CALI) (test code = DINA Ortega [facility], 1538) [address]: Glove Maker/Techni chika ID = [id number] for JEREMY GUPTA POCT-GLUCOSE [id number] 17:43:00 Test Item Value Reference Range Interpretation Comments POC-GLUCOSE METER 152 mg/dL 70-110 H : TESTED A T [facility] 6720 (CALI) (test code = DINA Ortega [facility], 1538) [address]: Glove Maker/Techni chika ID = [id number] for [place] SARS-COV2/RT-PCR ([facility])2020-03-25 13:40:00 Test Item Value Reference Range Interpretation Comments SARS-COV2/RT-PCR (test code = Negative Not Detected, Negative 7152141) SARS-COV-[address] [facility] (test code = 4257237) Negative result for this test determines that [...] of the Act.Fact Sheet for Healthcare Prov iders:https://www.[employer]/sites/default/files/product/documents/Fact_Sheet_HC _Hnmleecfx_Ybni_FYUI-FzJ-7.pdfFact Sheet for Healthcare Patients:https://www.[employer]/sites/default/files/product/docume nts/Fcps_Wgwjd_Jrxusyob_Hlhw_PTQU-EyT-9.pdfPerforming Laboratory:[facility], [place] [address]LOUC-JRSMNHP METER 2020-03-25 11:24:00 Test Item Value Reference Range Interpretation Comments POC-GLUCOSE METER 165 mg/dL 70-110 H : TESTED A T [facility] 6720 (CALI) (test code = DINA Jordan [facility], 1538) 57475: Glove Maker/Techni chika ID = [id number] for SANDRA HOLLIS TSH/FREE T4 IF [id number] 10:59:00 Test Item Value Reference Range Interpretation Comments THYROID STIMULATING HORMONE 0.622 uIU/mL 0.350-4.940 ([facility]) (test code = 772) Glove Maker ID - PIAYA LHEMOGLOBIN [id number] 10:59:00 Test Item Value Reference Range Interpretation Comments HEMOGLOBIN A1C (Meteor) (test code = 6.9 % 4.3-6.1 H 368) TROPONIN [id number] 10:50:00 Test Item Value Reference Range Interpretation Comments TROPONIN I ([facility] Services[facility]DA) (test code = 0.02 ng/mL 0.00-0.03 397) [...] failure, acidosis, acute neurological disease, and persistent tachyarrhythmia.Glove Maker ID - PIAYA LBASIC METABOLIC [id number] 10:42:00 Test Item Value Reference Range Interpretation [...] S NOT APPLICABLE FOR DIALYSIS PATIEN TS. Glove Maker ID - PIAYA LHEPATIC FUNCTION [id number] 10:42:00 Test Item Value Reference Range Interpretation [...] (test code = 10 U/L 6-55 347) Glove Maker ID - PIAYA [id number] 10:41:00 Test Item Value Reference Range Interpretation Comments PHOSPHORUS (BEAKER) (test code = 3.2 mg/dL 2.3-4.7 604) Glove Maker ID - PITYREE [id number] 10:41:00 Test Item Value Reference Range Interpretation Comments MAGNESIUM (BEAKER) (test code = 2.0 mg/dL 1.6-2.6 627) Glove Maker ID - PITYREE LPOCT-GLUCOSE [id number] 09:10:00 Test Item Value Reference Range Interpretation Comments POC-GLUCOSE METER 116 mg/dL 70-110 H : TESTED A T [facility] 6720 (BEAKER) (test code = DINA Ortega [facility], 1538) [address]: Glove Maker/Techni chika ID = [id number] for CO LANCE NICHOLAS RAD, CHEST, 1 VIEW, NON [id number] 07:49:00Reason for exam:->chest painShould this be performed at the bedside?->YesFINAL REPORT CLINICAL HISTORY: chest pain TECHNIQUE: 1 view of the chest. COMPAR NIEVES: None IMPRESSION: There are linear bandlike opacities in the bilateral mid and lower lungs. There are no significant effusions. The cardiomediastinal silhouette is magnified by technique. Signed: Keturah Gillespie MDReport Verified Date/Time: 03/25/2020 07:49:59 Reading Location: [facility] Radiology Reading Room C. DIFFICILE GDH [id number] 06:54:00 Test Item Value Reference Range Interpretation Comments CDT TOXIN (test code Negative Negative = 7882604047) CDT GDH ANTIGEN (test Negative Negative No ind ication of code = 6589732957) Clostridi um difficile infection and n o colonization. Discontinue ent perez isolation and t herapy. Testing performed by [employer] Rapid Cassette Assay. For GDH, published sensitivity of the assay is 98.7% compared to cytotoxicity testing. For Toxin AB, published sensitivity is 87.8% and specificity 99.4% compared to cytotoxicity testing.Verification of kit performance was done by the [facility] MicrobiologyLab prior to clinical use.URINALYSIS WITH MICROSCOPIC IF [id number] 06:35:00 Test Item Value Reference Range Interpretation [...] = 463) SOURCE(BEAKER) (test code = 2795) Glove Maker ID - [auto]Glove Maker ID - techURINALYSIS [id number] 06:35:00 Test Item Value Reference Range Interpretation Comments RBC UA (BEAKER) (test code = 519) 3 /HPF WBC UA (BEAKER) (test code = 520) 11 /HPF BACTERIA (BEAKER) (test code = 517) Rare SQUAMOUS EPITHELIAL (BEAKER) (test 1 /HPF code = 516) Glove Maker ID - techPOCT-GLUCOSE [id number] 05:08:00 Test Item Value Reference Range Interpretation Comments POC-GLUCOSE METER 128 mg/dL 70-110 H : TESTED A T [facility] 6720 (BEAKER) (test code = DINA VARGAS [place], 1538) 15[address]: Glove Maker/Techni chika ID = [id number] for As loreneabi Meena CHEM [id number] 12:00:00 Test Item Value Reference Range Interpretation Comments eGFR (test code = eGFR) [address] [facility] [address] [employer] FinancialCHEM [id number] 12:00:00 Test Item Value Reference Range Interpretation Comments AGAP (test code = AGAP) 9.5 10.0-20.0 [facility] [employer] [id number] 12:00:00 Test Item Value Reference Range Interpretation Comments CO2 (test code = CO2) 33 24-32 [facility]2018-06-19 12:00:00 Test Item Value Reference Range Interpretation Comments Calcium Lvl (test code = Calcium Lvl) 8.7 8.5-10.5 [facility]2018-06-19 12:00:00 Test Item Value Reference Range Interpretation Comments Glucose Lvl (test code = Glucose Lvl) 201 70-99 [facility]2018-06-19 12:00:00 Test Item Value Reference Range Interpretation Comments BUN (test code = BUN) 19 7-22 [facility]2018-06-19 12:00:00 Test Item Value Reference Range Interpretation Comments Creatinine Lvl (test code = Creatinine 0.61 0.50-1.40 Lvl) [facility]2018-06-19 12:00:00 Test Item Value Reference Range Interpretation Comments Sodium Lvl (test code = Sodium Lvl) 127 135-145 [facility]2018-06-19 12:00:00 Test Item Value Reference Range Interpretation Comments Chloride Lvl (test code = Chloride Lvl) 89 95-109 [facility]2018-06-19 12:00:00 Test Item Value Reference Range Interpretation Comments Potassium Lvl (test code = Potassium 4.5 3.5-5.1 Lvl) [id number] 08:31:00 Test Item Value Reference Range Interpretation Comments RBC (test code = RBC) 3.38 4.20-5.40 [facility] UptownGqcpqteICFXYTXOFX1174-97-18 08:31:00 Test Item Value Reference Range Interpretation Comments WBC (test code = WBC) 8.8 3.7-10.4 [facility] UptownKyyhujkWYXQRMPNPO4587-83-66 08:31:00 Test Item Value Reference Range Interpretation Comments Hct (test code = Hct) 27.7 36.0-48.0 [facility] UptownVpxzkbkBGBLGZHNTS6810-03-17 08:31:00 Test Item Value Reference Range Interpretation Comments MPV (test code = MPV) 8.5 7.4-10.4 [facility] UptownPomrsmqIPDXBWIGAY3095-47-22 08:31:00 Test Item Value Reference Range Interpretation Comments Platelet (test code = Platelet) 213 133-450 [facility] UptownKymlxglMFOSWQMIBI3312-22-05 08:31:00 Test Item Value Reference Range Interpretation Comments RDW (test code = RDW) 15.1 11.5-14.5 [facility] UptownVxjfftrTQNCAIDTUI8455-49-81 08:31:00 Test Item Value Reference Range Interpretation Comments MCHC (test code = MCHC) 34.0 32.0-36.0 [facility] UptownWmnirnhLUQYDXVCEQ1465-21-70 08:31:00 Test Item Value Reference Range Interpretation Comments MCH (test code = MCH) 27.8 pg 27.0-31.0 [facility] UptownIqrsaxsJILWHTRKFT1949-23-05 08:31:00 Test Item Value Reference Range Interpretation Comments MCV (test code = MCV) 81.8 80.0-98.0 [facility] UptownTaknayzKCEAAORGKG4783-01-95 08:31:00 Test Item Value Reference Range Interpretation Comments Lymphocytes (test code = Lymphocytes) 11.3 20.0-40.0 [facility] UptownLbnxnhwGMLYOQCRSJ8190-08-94 08:31:00 Test Item Value Reference Range Interpretation Comments Segs (test code = Segs) 81.3 45.0-75.0 [facility] UptownEcuopfwLCMPTWDDPS5974-71-21 08:31:00 Test Item Value Reference Range Interpretation Comments Basophils (test code = 0.3 See_Comment [Aut omated message] The Basophils) system which ge nerated this result tra nsmitted reference range : <=1.0. The reference r fernando was not used to int erpret this result as normal/abnormal . [facility] UptownWbjjnegHJFWGEPDID4730-79-88 08:31:00 Test Item Value Reference Range Interpretation Comments Eosinophils (test code = 2.2 See_Comment [A utomated message] The Eosinophils) system which ge nerated this result tra nsmitted reference range : <=4.0. The reference r fernando was not used to int erpret this result as normal/abnormal . [facility] UptownZxitmbvYHOMVTMYYP3004-92-60 08:31:00 Test Item Value Reference Range Interpretation Comments Monocytes (test code = Monocytes) 4.9 2.0-12.0 [facility] UptownHpwqtypAFTYPUYYKK7696-87-18 08:31:00 Test Item Value Reference Range Interpretation Comments Lymphocytes # (test code = Lymphocytes 1.0 1.0-5.5 #) [facility] UptownAhxjkesOQVQDBBBHH2679-29-66 08:31:00 Test Item Value Reference Range Interpretation Comments Segs-Bands # (test code = Segs-Bands #) 7.2 1.5-8.1 [facility] UptownPyeoqcwQBXWYKPOSR7123-92-41 08:31:00 Test Item Value Reference Range Interpretation Comments Eosinophils # (test code 0.2 See_Comment [A utomated message] The = Eosinophils #) system whic h generated this result tra nsmitted reference range : <=0.5. The reference r fernando was not used to int erpret this result as normal/abnormal . [facility] UptownFhggxqbIJTYNMKCGD2682-61-59 08:31:00 Test Item Value Reference Range Interpretation Comments Monocytes # (test code 0.4 See_Comment [Aut omated message] The = Monocytes #) system which generated this result tra nsmitted reference range : <=0.8. The reference r fernando was not used to int erpret this result as normal/abnormal . [facility]2018-06-18 08:31:00 Test Item Value Reference Range Interpretation Comments eGFR (test code = eGFR) 86 [facility]2018-06-18 08:31:00 Test Item Value Reference Range Interpretation Comments BUN (test code = BUN) 18 7-22 [place] 157528-06-18 08:31:00 Test Item Value Reference Range Interpretation Comments Glucose Lvl (test code = Glucose Lvl) 181 70-99 [facility]2018-06-18 08:31:00 Test Item Value Reference Range Interpretation Comments Creatinine Lvl (test code = Creatinine 0.61 0.50-1.40 Lvl) [facility]2018-06-18 08:31:00 Test Item Value Reference Range Interpretation Comments Calcium Lvl (test code = Calcium Lvl) 8.5 8.5-10.5 [facility]2018-06-18 08:31:00 Test Item Value Reference Range Interpretation Comments CO2 (test code = CO2) 34 24-32 [facility]2018-06-18 08:31:00 Test Item Value Reference Range Interpretation Comments Chloride Lvl (test code = Chloride Lvl) 88 95-109 [place] 157528-06-18 08:31:00 Test Item Value Reference Range Interpretation Comments Potassium Lvl (test code = Potassium 4.3 3.5-5.1 Lvl) [facility]2018-06-18 08:31:00 Test Item Value Reference Range Interpretation Comments Sodium Lvl (test code = Sodium Lvl) 131 135-145 [facility] [id number] 08:31:00 Test Item Value Reference Range Interpretation Comments AGAP (test code = AGAP) 13.3 10.0-20.0 [facility]villeAzasvurZAADYWYRUO3913-70-03 08:31:00 Test Item Value Reference Range Interpretation Comments Hgb (test code = Hgb) 9.4 12.0-16.0 [facility]villeCARDIAC YDBFXPU2498-37-47 06:00:00 Test Item Value Reference Range Interpretation Comments BNP (test code = BNP) 188 [facility] [id number] 06:00:00 Test Item Value Reference Range Interpretation Comments Phosphorus (test code = Phosphorus) 2.7 2.5-4.5 [facility]2018-06-17 06:00:00 Test Item Value Reference Range Interpretation Comments Calcium Lvl (test code = Calcium Lvl) 8.8 8.5-10.5 [facility]2018-06-17 06:00:00 Test Item Value Reference Range Interpretation Comments Chloride Lvl (test code = Chloride Lvl) 84 95-109 [facility]2018-06-17 06:00:00 Test Item Value Reference Range Interpretation Comments AGAP (test code = AGAP) 12.4 10.0-20.0 [facility]2018-06-17 06:00:00 Test Item Value Reference Range Interpretation Comments CO2 (test code = CO2) 37 24-32 [facility]2018-06-17 06:00:00 Test Item Value Reference Range Interpretation Comments eGFR (test code = eGFR) 88 [facility]2018-06-17 06:00:00 Test Item Value Reference Range Interpretation Comments Glucose Lvl (test code = Glucose Lvl) 146 70-99 [facility]2018-06-17 06:00:00 Test Item Value Reference Range Interpretation Comments BUN (test code = BUN) 13 7-22 [facility]2018-06-17 06:00:00 Test Item Value Reference Range Interpretation Comments Creatinine Lvl (test code = Creatinine 0.57 0.50-1.40 Lvl) [facility]2018-06-17 06:00:00 Test Item Value Reference Range Interpretation Comments Sodium Lvl (test code = Sodium Lvl) 130 135-145 [facility]2018-06-17 06:00:00 Test Item Value Reference Range Interpretation Comments Potassium Lvl (test code = Potassium 3.4 3.5-5.1 Lvl) [facility]2018-06-17 06:00:00 Test Item Value Reference Range Interpretation Comments Magnesium Lvl (test code = Magnesium 2.0 1.8-2.4 Lvl) [facility]2018-06-16 15:56:00 Test Item Value Reference Range Interpretation Comments U Osmolality (test code = U Osmolality) 311 300-800 [facility]2018-06-16 15:56:00 Test Item Value Reference Range Interpretation Comments U Creatinine (test code = U Creatinine) 10.70 [facility]2018-06-16 15:56:00 Test Item Value Reference Range Interpretation Comments U Sodium (test code = U Sodium) 84 [facility]2018-06-16 15:56:00 Test Item Value Reference Range Interpretation Comments U Potassium (test code = U Potassium) 42.2 [facility]2018-06-16 15:56:00 Test Item Value Reference Range Interpretation Comments U Chloride (test code = U Chloride) 118 [facility]2018-06-16 05:11:00 Test Item Value Reference Range Interpretation Comments Osmolality (test code = Osmolality) 269 280-300 [facility]2018-06-16 05:11:00 Test Item Value Reference Range Interpretation Comments Magnesium Lvl (test code = Magnesium 1.6 1.8-2.4 Lvl) [facility]2018-06-16 05:11:00 Test Item Value Reference Range Interpretation Comments Phosphorus (test code = Phosphorus) 2.3 2.5-4.5 [facility]ptownEcsaoqbNTQCCPBXUJ5453-18-96 05:11:00 Test Item Value Reference Range Interpretation Comments Segs-Bands # (test code = Segs-Bands #) 6.2 1.5-8.1 [facility] UptownNhtxuwzJWZQNSZLBI1014-19-13 05:11:00 Test Item Value Reference Range Interpretation Comments Lymphocytes # (test code = Lymphocytes 1.1 1.0-5.5 #) [facility] UptownDnijzisBTUYVAKXYO9524-00-97 05:11:00 Test Item Value Reference Range Interpretation Comments Basophils (test code = 0.2 See_Comment [Aut omated message] The Basophils) system which ge nerated this result tra nsmitted reference range : <=1.0. The reference r fernando was not used to int erpret this result as normal/abnormal . [facility] UptownMurtxleLXFEQPWNQQ5986-69-95 05:11:00 Test Item Value Reference Range Interpretation Comments Eosinophils (test code = 2.3 See_Comment [A utomated message] The Eosinophils) system which ge nerated this result tra nsmitted reference range : <=4.0. The reference r fernando was not used to int erpret this result as normal/abnormal . [facility]ownVxqbsqcCEDWFNHXMV0895-38-96 05:11:00 Test Item Value Reference Range Interpretation Comments Monocytes (test code = Monocytes) 8.1 2.0-12.0 [facility]ptownZrtkkhxJIKIRXNFUP9866-87-27 05:11:00 Test Item Value Reference Range Interpretation Comments Lymphocytes (test code = Lymphocytes) 13.8 20.0-40.0 [facility]ptownSgdrnngSTVUKXODXB8125-24-99 05:11:00 Test Item Value Reference Range Interpretation Comments Segs (test code = Segs) 75.6 45.0-75.0 [facility]ptownEyatwgjZXTCBDBBPV4616-52-60 05:11:00 Test Item Value Reference Range Interpretation Comments Eosinophils # (test code 0.2 See_Comment [A utomated message] The = Eosinophils #) system whic h generated this result tra nsmitted reference range : <=0.5. The reference r fernando was not used to int erpret this result as normal/abnormal . [facility] UptownObnroyrUPMZUYSARH8417-86-84 05:11:00 Test Item Value Reference Range Interpretation Comments Monocytes # (test code 0.7 See_Comment [Aut omated message] The = Monocytes #) system which generated this result tra nsmitted reference range : <=0.8. The reference r fernando was not used to int erpret this result as normal/abnormal . [facility]ptownOgtxgjtJNINLGTJHU8701-38-39 05:11:00 Test Item Value Reference Range Interpretation Comments Platelet (test code = Platelet) 185 133-450 [facility]ptownEivtpjpXRAHUXZNFM3084-78-98 05:11:00 Test Item Value Reference Range Interpretation Comments RDW (test code = RDW) 15.0 11.5-14.5 [facility] UptownXyrlmslHKONFSADNX4078-52-30 05:11:00 Test Item Value Reference Range Interpretation Comments MCHC (test code = MCHC) 34.1 32.0-36.0 [facility] UptownWihagrbBGJHHMTIHB2006-98-61 05:11:00 Test Item Value Reference Range Interpretation Comments MPV (test code = MPV) 8.2 7.4-10.4 [facility] UptownFminnwzSWQLGOIQRI4495-81-30 05:11:00 Test Item Value Reference Range Interpretation Comments MCV (test code = MCV) 81.1 80.0-98.0 [facility] UptownBtarjyeQTMGXOPPRG3133-20-85 05:11:00 Test Item Value Reference Range Interpretation Comments MCH (test code = MCH) 27.7 pg 27.0-31.0 [facility] UptownFkfefxeOHOZQMRLFY6194-13-08 05:11:00 Test Item Value Reference Range Interpretation Comments RBC (test code = RBC) 3.46 4.20-5.40 [facility] UptownQzdyzwnMLIRGFVMPL1225-26-49 05:11:00 Test Item Value Reference Range Interpretation Comments Hct (test code = Hct) 28.1 36.0-48.0 [facility] UptownGypijdqNTFDMGELDE4014-79-43 05:11:00 Test Item Value Reference Range Interpretation Comments Hgb (test code = Hgb) 9.6 12.0-16.0 [facility] UptownYaittctGWASBFQSKX4145-22-93 05:11:00 Test Item Value Reference Range Interpretation Comments WBC (test code = WBC) 8.2 3.7-10.4 [facility] TaylorROID MDCGMMD0576-10-69 05:11:00 Test Item Value Reference Range Interpretation Comments Ca Ion WB (test code = Ca Ion WB) 1.05 1.05-1.25 [facility]2018-06-16 05:11:00 Test Item Value Reference Range Interpretation Comments Ca Norm WB (test code = Ca Norm WB) 1.12 1.05-1.25 [facility] UptownKfdvgzhEINVHRBIBL4457-72-10 05:37:00 Test Item Value Reference Range Interpretation Comments Segs (test code = Segs) 84.3 45.0-75.0 [facility] UptownDccydqhPBVDRBDISD7062-96-20 05:37:00 Test Item Value Reference Range Interpretation Comments Lymphocytes (test code = Lymphocytes) 7.4 20.0-40.0 [facility] UptownXadjgbuPDEMOGCCJI8687-22-04 05:37:00 Test Item Value Reference Range Interpretation Comments Eosinophils # (test code 0.1 See_Comment [A utomated message] The = Eosinophils #) system [facility] h generated this result tra nsmitted reference range : <=0.5. The reference r fernando was not used to int erpret this result as normal/abnormal . [facility]ptownKcnsfwkWJEZOYQNKB7554-69-53 05:37:00 Test Item Value Reference Range Interpretation Comments Lymphocytes # (test code = Lymphocytes 0.6 1.0-5.5 #) [facility]ptownUsznxkvDOXKOYPRMM3485-59-54 05:37:00 Test Item Value Reference Range Interpretation Comments Monocytes # (test code 0.5 See_Comment [Aut omated message] The = Monocytes #) system which generated this result tra nsmitted reference range : <=0.8. The reference r fernando was not used to int erpret this result as normal/abnormal . [facility] UptownNtuwxyqMYBKZGWRID5873-06-62 05:37:00 Test Item Value Reference Range Interpretation Comments Monocytes (test code = Monocytes) 6.7 2.0-12.0 [facility] UptownEwhmcrkGFJDJULKFH9096-29-53 05:37:00 Test Item Value Reference Range Interpretation Comments Eosinophils (test code = 1.4 See_Comment [A utomated message] The Eosinophils) system which ge nerated this result tra nsmitted reference range : <=4.0. The reference r fernando was not used to int erpret this result as normal/abnormal . [facility]ptownSbvxhesGUWOWQSIBV3862-34-86 05:37:00 Test Item Value Reference Range Interpretation Comments Basophils (test code = 0.2 See_Comment [Aut omated message] The Basophils) system which ge nerated this result tra nsmitted reference range : <=1.0. The reference r fernando was not used to int erpret this result as normal/abnormal . [facility]ptownPdupykrJQETNDSBAI6582-34-35 05:37:00 Test Item Value Reference Range Interpretation Comments Segs-Bands # (test code = Segs-Bands #) 6.3 1.5-8.1 [facility]ptownJffpharEMOJJBRHMB3427-51-10 05:37:00 Test Item Value Reference Range Interpretation Comments MCV (test code = MCV) 82.1 80.0-98.0 [facility]villeWowwouuMYZZTMGNNB4790-70-10 05:37:00 Test Item Value Reference Range Interpretation Comments Hct (test code = Hct) 27.1 36.0-48.0 [facility] GreenvilleBwvdgqrWQDGQNUTSF0542-14-66 05:37:00 Test Item Value Reference Range Interpretation Comments MCHC (test code = MCHC) 34.5 32.0-36.0 [facility]ORQP9288[facility]79-[facility] 05:37:00 Test Item Value Reference Range Interpretation Comments MCH (test code = MCH) 28.3 pg 27.0-31.0 [facility] GreenvilleEyetalyDCINNTUSRK1787-98-97 05:37:00 Test Item Value Reference Range Interpretation Comments RBC (test code = RBC) 3.29 4.20-5.40 [facility] GreenvilleHlcglbaVCPZHHJCSO0136-12-66 05:37:00 Test Item Value Reference Range Interpretation Comments WBC (test code = WBC) 7.5 3.7-10.4 [facility]WkzclpwBSWUDORNNZ4818-73-73 05:37:00 Test Item Value Reference Range Interpretation Comments RDW (test code = RDW) 15.1 11.5-14.5 [facility] GreenvilleAvaexhmTUULAGHTWP9891-98-30 05:37:00 Test Item Value Reference Range Interpretation Comments Platelet (test code = Platelet) 191 133-450 [facility] GreenvilleWsqeevsKBLRJYGENM7911-86-75 05:37:00 Test Item Value Reference Range Interpretation Comments MPV (test code = MPV) 7.8 7.4-10.4 [facility]ptownAyirhoiPDWCMGWNOG3405-35-11 05:37:00 Test Item Value Reference Range Interpretation Comments Hgb (test code = Hgb) 9.3 12.0-16.0 [facility] RKZVUYT3222-84-99 05:37:00 Test Item Value Reference Range Interpretation Comments Ca Norm WB (test code = Ca Norm WB) 1.08 1.05-1.25 [facility] AliceannPARATHYROID DTJOMQE6319-85-09 05:37:00 Test Item Value Reference Range Interpretation Comments Ca Ion WB (test code = Ca Ion WB) 1.04 1.05-1.25 [facility] [id number] 11:46:00 Test Item Value Reference Range Interpretation Comments A/G Ratio (test code = A/G Ratio) 0.6 1 0.7-1.6 [facility]2018-06-14 11:46:00 Test Item Value Reference Range Interpretation Comments Globulin (test code = Globulin) 3.6 2.7-4.2 [facility]2018-06-14 11:46:00 Test Item Value Reference Range Interpretation Comments Bili Indirect (test 0.4 See_Comment [Automa timur message] The code = Bili Indirect) system which generated this result tra nsmitted reference range : <=1.0. The reference r fernando was not used to int erpret this result as normal/abnormal . [facility]2018-06-14 11:46:00 Test Item Value Reference Range Interpretation Comments Bili Direct (test code 0.7 See_Comment [Aut omated message] The = Bili Direct) system which generated this result tra nsmitted reference range : <=0.3. The reference r fernando was not used to int erpret this result as jasmyne l/abnormal. [facility]2018-06-14 11:46:00 Test Item Value Reference Range Interpretation Comments Alk Phos (test code = Alk Phos) 276 39-136 [facility]2018-06-14 11:46:00 Test Item Value Reference Range Interpretation Comments AST (test code = AST) 44 See_Comment [Auto mated message] The system which ge nerated this result transmit timur reference range : <=37. The reference range was not used to interpr et this result as jasmyne l/abnormal. [facility]2018-06-14 11:46:00 Test Item Value Reference Range Interpretation Comments ALT (test code = ALT) 54 See_Comment [Auto mated message] The system which ge nerated this result transmit timur reference range : <=65. The reference range was not used to interpr et this result as jasmyne l/abnormal. [facility]2018-06-14 11:46:00 Test Item Value Reference Range Interpretation Comments Albumin Lvl (test code = Albumin Lvl) 2.3 3.5-5.0 [facility]2018-06-14 11:46:00 Test Item Value Reference Range Interpretation Comments Total Protein (test code = Total 5.9 6.4-8.4 Protein) [facility] [id number] 11:46:00 Test Item Value Reference Range Interpretation Comments Bili Total (test code = Bili Total) 1.1 0.2-1.3 [place] [id number] 11:46:00 Test Item Value Reference Range Interpretation Comments Aldosterone (test code = no gt See_Comment [A utomated message] The Aldosterone) system which ge nerated this result tra nsmitted reference range : <=30.0. The reference r fernadno was not used to int erpret this result as normal/abnormal . [place] [id number] 11:46:00 Test Item Value Reference Range Interpretation Comments Renin Activity (test code = Renin 0.527 0.167-5.380 Activity) [facility] [id number] 11:46:00 Test Item Value Reference Range Interpretation Comments UA Urobilinogen (test code = UA <=1.0 mg/dL 0.1-1.0 Urobilinogen) [facility] [id number] 11:46:00 Test Item Value Reference Range Interpretation Comments UA Mucus (test code = UA Mucus) Few /LPF [facility] [id number] 11:46:00 Test Item Value Reference Range Interpretation Comments UA Sq Epi (test code = UA Sq Occasional /LPF Epi) [facility] [id number] 11:46:00 Test Item Value Reference Range Interpretation Comments UA Nitrite (test code Negative (02/22/18 6:46 = UA Nitrite) AM) [facility] [id number] 11:46:00 Test Item Value Reference Range Interpretation Comments UA Hyal Cast (test 1 See_Comment [Automat ed message] The code = UA Hyal Cast) system which generated this result transmit timur reference range : <=2. The reference range was not used to interpr et this result as jasmyne l/abnormal. [facility] [id number] 11:46:00 Test Item Value Reference Range Interpretation Comments UA RBC (test code = 1 See_Comment [Automa timur message] The UA RBC) system which ge nerated this result transmit timur reference range : <=2. The reference range was not used to interpr et this result as jasmyne l/abnormal. [facility] [id number] 11:46:00 Test Item Value Reference Range Interpretation Comments UA Leuk Est (test Negative (02/22/18 6:46 code = UA Leuk Est) AM) [facility] [id number] 11:46:00 Test Item Value Reference Range Interpretation Comments UA WBC (test code = 3 See_Comment [Automa timur message] The UA WBC) system which ge nerated this result transmit timur reference range : <=5. The reference range was not used to interpr et this result as jasmyne l/abnormal. [facility] [id number] 11:46:00 Test Item Value Reference Range Interpretation Comments UA Turbidity (test code Slight *ABN*(02/22/18 = UA Turbidity) 6:46 AM) [facility] [id number] 11:46:00 Test Item Value Reference Range Interpretation Comments UA Color (test code = Yellow *NA*(02/22/18 UA Color) 6:46 AM) [facility] [id number] 11:46:00 Test Item Value Reference Range Interpretation Comments UA pH (test code = UA pH) 6.0 1 5.0-8.0 [facility] [id number] 11:46:00 Test Item Value Reference Range Interpretation Comments UA Ketones (test code = UA Negative mg/dL Ketones) [facility] [id number] 11:46:00 Test Item Value Reference Range Interpretation Comments UA Protein (test code = UA Protein) 20 mg/dL [facility] [id number] 11:46:00 Test Item Value Reference Range Interpretation Comments UA Spec Grav (test code = UA Spec 1.011 1 Grav) [facility] [id number] 11:46:00 Test Item Value Reference Range Interpretation Comments UA Glucose (test code = UA Glucose) 70 mg/dL [facility] [id number] 11:46:00 Test Item Value Reference Range Interpretation Comments UA Bili (test code = Negative *NA*(02/22/18 UA Bili) 6:46 AM) [facility] [id number] 11:46:00 Test Item Value Reference Range Interpretation Comments UA Blood (test code = Negative (02/22/18 6:46 UA Blood) AM) [facility]2018-06-14 11:46:00 Test Item Value Reference Range Interpretation Comments U Creatinine (test code = U Creatinine) 22.10 [facility]2018-06-14 11:46:00 Test Item Value Reference Range Interpretation Comments U Chloride (test code = U Chloride) 155 [facility]2018-06-14 11:46:00 Test Item Value Reference Range Interpretation Comments U Potassium (test code = U Potassium) 61.1 [facility]2018-06-14 11:46:00 Test Item Value Reference Range Interpretation Comments U Sodium (test code = U Sodium) 98 [facility]2018-06-14 04:44:00 Test Item Value Reference Range Interpretation Comments Magnesium Lvl (test code = Magnesium 2.4 1.8-2.4 Lvl) [facility]2018-06-14 04:44:00 Test Item Value Reference Range Interpretation Comments Phosphorus (test code = Phosphorus) 2.6 2.5-4.5 [facility] [id number] 04:44:00 Test Item Value Reference Range Interpretation Comments Ca Ion WB (test code = Ca Ion WB) 1.06 1.05-1.25 [facility]2018-06-14 04:44:00 Test Item Value Reference Range Interpretation Comments Ca Norm WB (test code = Ca Norm WB) 1.09 1.05-1.25 [facility]2018-06-13 22:33:00 Test Item Value Reference Range Interpretation Comments Lactic Acid Lvl (test code = Lactic 1.4 0.5-2.2 Acid Lvl) [facility]2018-06-13 20:03:00 Test Item Value Reference Range Interpretation Comments U Osmolality (test code = U Osmolality) 360 300-800 [facility]2018-06-13 20:03:00 Test Item Value Reference Range Interpretation Comments U Sodium (test code = U Sodium) 88 [facility]2018-06-13 15:44:00 Test Item Value Reference Range Interpretation Comments Albumin Lvl (test code = Albumin Lvl) 2.6 3.5-5.0 [facility]2018-06-13 15:44:00 Test Item Value Reference Range Interpretation Comments Total Protein (test code = Total 6.7 6.4-8.4 Protein) [facility] [id number] 15:44:00 Test Item Value Reference Range Interpretation Comments B/C Ratio (test code = B/C Ratio) 12 1 6-25 [facility] [id number] 15:44:00 Test Item Value Reference Range Interpretation Comments ALT (test code = ALT) 67 See_Comment [Auto mated message] The system which ge nerated this result transmit timur reference range : <=65. The reference range was not used to interpr et this result as jasmyne l/abnormal. [facility] [id number] 15:44:00 Test Item Value Reference Range Interpretation Comments Bili Total (test code = Bili Total) 1.2 0.2-1.3 [facility] [id number] 15:44:00 Test Item Value Reference Range Interpretation Comments AST (test code = AST) 77 See_Comment [Auto mated message] The system which ge nerated this result transmit timur reference range : <=37. The reference range was not used to interpr et this result as jasmyne l/abnormal. [facility] [id number] 15:44:00 Test Item Value Reference Range Interpretation Comments A/G Ratio (test code = A/G Ratio) 0.6 1 0.7-1.6 [facility] [id number] 15:44:00 Test Item Value Reference Range Interpretation Comments Alk Phos (test code = Alk Phos) 269 39-136 [facility] [id number] 15:44:00 Test Item Value Reference Range Interpretation Comments Globulin (test code = Globulin) 4.1 2.7-4.2 [facility] [id number] 15:44:00 Test Item Value Reference Range Interpretation Comments Osmolality (test code = Osmolality) 270 280-300 [facility] [id number] 08:30:00 Test Item Value Reference Range Interpretation Comments Hgb A1C (test code = Hgb A1C) 6.5 [facility] MedicalCARDIAC [id number] 06:01:00 Test Item Value Reference Range Interpretation Comments proBNP (test code = 4235 See_Comment [Automa timur message] The proBNP) system which ge nerated this result tra nsmitted reference range : <=450. The reference r fernando was not used to int erpret this result as jasmyne l/abnormal. [facility]2018-06-13 06:01:00 Test Item Value Reference Range Interpretation Comments BNP (test code = BNP) 345 [facility]2018-06-13 06:01:00 Test Item Value Reference Range Interpretation Comments Lactic Acid Lvl (test code = Lactic 1.7 0.5-2.2 Acid Lvl) [facility]2018-06-13 06:01:00 Test Item Value Reference Range Interpretation Comments Procalcitonin Lvl (test 0.41 See_Comment [Au tomated message] code = Procalcitonin Lvl) Th e system which generated this result transmitted ref erence range: <=0.10. The reference range was not used to interpr et this result as normal/abnormal . [facility]2018-06-12 11:57:00 Test Item Value Reference Range Interpretation Comments Bili Indirect (test 0.4 See_Comment [Automa timur message] The code = Bili Indirect) system which generated this result tra nsmitted reference range : <=1.0. The reference r fernando was not used to int erpret this result as normal/abnormal . [facility]2018-06-12 11:57:00 Test Item Value Reference Range Interpretation Comments Bili Total (test code = Bili Total) 0.7 0.2-1.3 [facility]2018-06-12 11:57:00 Test Item Value Reference Range Interpretation Comments Bili Direct (test code 0.3 See_Comment [Aut omated message] The = Bili Direct) system which generated this result tra nsmitted reference range : <=0.3. The reference r fernando was not used to int erpret this result as jasmyne l/abnormal. [facility]2018-06-12 11:57:00 Test Item Value Reference Range Interpretation Comments AST (test code = AST) 87 See_Comment [Auto mated message] The system which ge nerated this result transmit timur reference range : <=37. The reference range was not used to interpr et this result as jasmyne l/abnormal. [facility]villeCHE[facility] [id number] 11:57:00 Test Item Value Reference Range Interpretation Comments ALT (test code = ALT) 56 See_Comment [Auto mated message] The system which ge nerated this result transmit timur reference range : <=65. The reference range was not used to interpr et this result as jasmyne l/abnormal. [facility] [id number] 11:57:00 Test Item Value Reference Range Interpretation Comments Alk Phos (test code = Alk Phos) 162 39-136 [facility] [id number] 11:57:00 Test Item Value Reference Range Interpretation Comments Albumin Lvl (test code = Albumin Lvl) 2.5 3.5-5.0 [facility] [id number] 11:57:00 Test Item Value Reference Range Interpretation Comments Total Protein (test code = Total 6.0 6.4-8.4 Protein) [facility] [id number] 11:57:00 Test Item Value Reference Range Interpretation Comments Globulin (test code = Globulin) 3.5 2.7-4.2 [facility] [id number] 11:57:00 Test Item Value Reference Range Interpretation Comments A/G Ratio (test code = A/G Ratio) 0.7 1 0.7-1.6 [facility] [id number] 11:57:00 Test Item Value Reference Range Interpretation Comments Procalcitonin Lvl (test 0.35 See_Comment [Au tomated message] code = Procalcitonin Lvl) Th e system which generated this result transmitted ref erence range: <=0.10. The reference range was not used to interpr et this result as normal/abnormal . [facility]villeBA[facility] - [id number] 17:56:00 Test Item Value Reference Range Interpretation Comments MRSA by PCR (test Negative (02/19/18 12:56 code = MRSA by PCR) PM) [facility] [id number] 11:34:00 Test Item Value Reference Range Interpretation Comments UA Leuk Est (test Moderate *ABN*(02/19/18 code = UA Leuk Est) 6:34 AM) [facility] [id number] 11:34:00 Test Item Value Reference Range Interpretation Comments UA Urobilinogen (test code = UA 0.2 0.1-1.0 Urobilinogen) [facility] [id number] 11:34:00 Test Item Value Reference Range Interpretation Comments UA Nitrite (test code Positive *ABN*(02/19/18 = UA Nitrite) 6:34 AM) [facility] [id number] 11:34:00 Test Item Value Reference Range Interpretation Comments UA pH (test code = UA pH) 8.5 1 5.0-8.0 [facility] [id number] 11:34:00 Test Item Value Reference Range Interpretation Comments UA Protein (test code Negative (02/19/18 6:34 = UA Protein) AM) [facility] [id number] 11:34:00 Test Item Value Reference Range Interpretation Comments UA Glucose (test code Negative (02/19/18 6:34 = UA Glucose) AM) [facility] [id number] 11:34:00 Test Item Value Reference Range Interpretation Comments UA Blood (test code = Negative (02/19/18 6:34 UA Blood) AM) [facility] [id number] 11:34:00 Test Item Value Reference Range Interpretation Comments UA Ketones (test code Negative *NA*(02/19/18 = UA Ketones) 6:34 AM) [facility] [id number] 11:34:00 Test Item Value Reference Range Interpretation Comments UA Bili (test code = Negative *NA*(02/19/18 UA Bili) 6:34 AM) [facility] [id number] 11:34:00 Test Item Value Reference Range Interpretation Comments UA Color (test code = Yellow *NA*(02/19/18 UA Color) 6:34 AM) [facility] [id number] 11:34:00 Test Item Value Reference Range Interpretation Comments UA Spec Grav (test code = UA Spec 1.010 1 Grav) [facility] [id number] 11:34:00 Test Item Value Reference Range Interpretation Comments UA Turbidity (test code = Clear (02/19/18 6:34 UA Turbidity) AM) [facility] AND [id number] 11:34:00 Test Item Value Reference Range Interpretation Comments UA Amorph Aliya (test code = Occasional /HPF UA Amorph Aliya) [facility] [id number] 11:34:00 Test Item Value Reference Range Interpretation Comments UA Sq Epi (test code = UA Sq Occasional /LPF Epi) [facility] [id number] 11:34:00 Test Item Value Reference Range Interpretation Comments UA WBC (test code = 28 See_Comment [Automa timur message] The UA WBC) system which ge nerated this result transmit timur reference range : <=5. The reference range was not used to interpr et this result as jasmyne l/abnormal. [facility] [id number] 11:34:00 Test Item Value Reference Range Interpretation Comments UA RBC (test code = 8 See_Comment [Automa timur message] The UA RBC) system which ge nerated this result transmit timur reference range : <=2. The reference range was not used to interpr et this result as jasmyne l/abnormal. [facility] [id number] 11:34:00 Test Item Value Reference Range Interpretation Comments UA Mucus (test code = UA Mucus) Moderate /LPF [facility] [id number] 10:49:00 Test Item Value Reference Range Interpretation Comments Troponin-T (test code no gt See_Comment [Auto mated message] The = Troponin-T) system which g enerated this result transmit timur reference range : <=0.100. The reference r fernando was not used to interpr et this result as jasmyne l/abnormal. [facility] 10:49:00 Test Item Value Reference Range Interpretation Comments Plav Effect Plt (test code = Plav 281 Effect Plt) [facility]IajmsvbASXLCOEJPE2403-00-45 10:49:00 Test Item Value Reference Range Interpretation Comments ASA Effect Plt (test code = ASA Effect 565 Plt) [facility] [id number] 10:06:00 Test Item Value Reference Range Interpretation Comments Troponin-I (test code 0.04 See_Comment [Auto mated message] The = Troponin-I) system which g enerated this result transmit timur reference range : <=0.40. The reference r fernando was not used to interpr et this result as jasmyne l/abnormal. [facility] [id number] 09:31:00 Test Item Value Reference Range Interpretation Comments FFP product (test code Product available = FFP product) (02/19/18 4:31 AM) [facility] [id number] 08:36:00 Test Item Value Reference Range Interpretation Comments Lactic Acid Lvl (test code = Lactic 1.7 0.5-2.2 Acid Lvl) [facility] [id number] 08:31:00 Test Item Value Reference Range Interpretation Comments Antibody Scrn (test Negative (02/19/18 3:31 code = Antibody Scrn) AM) [facility] [id number] 08:31:00 Test Item Value Reference Range Interpretation Comments ABO/Rh (test code = ABO/Rh) A POS [facility]ownWuxozsdIDDXOODSDP0412-95-89 08:31:00 Test Item Value Reference Range Interpretation Comments PTT (test code = PTT) 51.4 s 22.9-35.8 [facility] UptownKfhbyiiNUZOMUJWKB0604-93-68 08:31:00 Test Item Value Reference Range Interpretation Comments INR (test code = INR) 1.04 1 0.85-1.17 [facility] UptownTqwnksqCTRGPLJPMM8720-08-48 08:31:00 Test Item Value Reference Range Interpretation Comments PT (test code = PT) 13.6 s 12.0-14.7 [facility] UptownLhwmicxRDIFFMQXYF4556-99-52 08:31:00 Test Item Value Reference Range Interpretation Comments K-time Rapid (test code = K-time 0.8 min 0.6-2.3 Rapid) [facility] UptownIdfmpgwCEDQKEIFFU2974-09-59 08:31:00 Test Item Value Reference Range Interpretation Comments R-time Rapid (test code = R-time 0.6 min 0.4-0.7 Rapid) [facility] UptownSvpoquuIOFDCRZKRV9626-80-94 08:31:00 Test Item Value Reference Range Interpretation Comments Split Point Rapid (test code = Split 0.5 min Point Rapid) [facility] UptownFkhbhkkPGEQMRKYDW0418-36-73 08:31:00 Test Item Value Reference Range Interpretation Comments ACT (TEG) Rapid (test code = ACT (TEG) 105 s 86-118 Rapid) [facility] UptownZswoxoxALLIUXQRUG9419-86-76 08:31:00 Test Item Value Reference Range Interpretation Comments G-value Rapid (test code = G-value 17.0 5.0-11.6 Rapid) [facility] UptownKubatcnHHVXIDYUAZ1357-37-93 08:31:00 Test Item Value Reference Range Interpretation Comments Estimated % Lysis Rapid 1.2 See_Comment [Au tomated message] The (test code = Estimated syste m which generated % Lysis Rapid) this result t ransmitted reference range : <=7.5. The reference r fernando was not used to int erpret this result as normal/abnormal . [facility] UptownRtrnasdJXIXYDOCDM0583-77-46 08:31:00 Test Item Value Reference Range Interpretation Comments Angle Rapid (test code = Angle 81 degrees 64-80 Rapid) [facility] UptownVahsdmxJOSAAEXYXM3610-84-86 08:31:00 Test Item Value Reference Range Interpretation Comments Max Amplitude Rapid (test code = Max 77 mm 52-71 Amplitude Rapid) [facility]DL[facility]DLXCR2955[facility]39-85 13:38:00 Test Item Value Reference Range Interpretation Comments Potassium Lvl (test code = Potassium 3.4 3.5-5.1 Lvl) [facility]2018-06-04 10:51:00 Test Item Value Reference Range Interpretation Comments Calcium Lvl (test code = Calcium Lvl) 8.7 8.5-10.5 [facility]2018-06-04 10:51:00 Test Item Value Reference Range Interpretation Comments AGAP (test code = AGAP) 14.9 10.0-20.0 [facility]2018-06-04 10:51:00 Test Item Value Reference Range Interpretation Comments Glucose Lvl (test code = Glucose Lvl) 110 70-99 [facility]2018-06-04 10:51:00 Test Item Value Reference Range Interpretation Comments CO2 (test code = CO2) 27 24-32 [facility]2018-06-04 10:51:00 Test Item Value Reference Range Interpretation Comments Creatinine Lvl (test code = Creatinine 0.62 0.50-1.40 Lvl) [facility]2018-06-04 10:51:00 Test Item Value Reference Range Interpretation Comments BUN (test code = BUN) 6 7-22 [facility]2018-06-04 10:51:00 Test Item Value Reference Range Interpretation Comments Sodium Lvl (test code = Sodium Lvl) 140 135-145 [facility]2018-06-04 10:51:00 Test Item Value Reference Range Interpretation Comments Potassium Lvl (test code = Potassium 2.9 3.5-5.1 Lvl) [facility]2018-06-04 10:51:00 Test Item Value Reference Range Interpretation Comments Chloride Lvl (test code = Chloride Lvl) 101 95-109 [facility]2018-06-04 10:51:00 Test Item Value Reference Range Interpretation Comments eGFR (test code = eGFR) 85 [facility]QyfhwdsOOSPYMOURANG4193-89-31 05:33:00 Test Item Value Reference Range Interpretation Comments Sodium Lvl (test code = Sodium Lvl) 140 135-145 [facility] CenterKknlcfkGFEBGFQERICV7377-11-33 05:33:00 Test Item Value Reference Range Interpretation Comments Potassium Lvl (test code = Potassium 4.1 3.5-5.1 Lvl) [facility] CenterRfsbsplXPDPHJACIPMS7375-24-86 18:24:00 Test Item Value Reference Range Interpretation Comments Sodium Lvl (test code = Sodium Lvl) 137 135-145 [facility]2018-06-01 05:20:00 Test Item Value Reference Range Interpretation Comments eGFR (test code = eGFR) 86 [facility]2018-06-01 05:20:00 Test Item Value Reference Range Interpretation Comments Chloride Lvl (test code = Chloride Lvl) 103 95-109 [facility]2018-06-01 05:20:00 Test Item Value Reference Range Interpretation Comments CO2 (test code = CO2) 24 24-32 [facility]2018-06-01 05:20:00 Test Item Value Reference Range Interpretation Comments AGAP (test code = AGAP) 15.0 10.0-20.0 [facility]2018-06-01 05:20:00 Test Item Value Reference Range Interpretation Comments Calcium Lvl (test code = Calcium Lvl) 8.7 8.5-10.5 [facility]2018-06-01 05:20:00 Test Item Value Reference Range Interpretation Comments BUN (test code = BUN) 8 7-22 [facility]2018-06-01 05:20:00 Test Item Value Reference Range Interpretation Comments Creatinine Lvl (test code = Creatinine 0.62 0.50-1.40 Lvl) [facility]2018-06-01 05:20:00 Test Item Value Reference Range Interpretation Comments Glucose Lvl (test code = Glucose Lvl) 169 70-99 [facility] UptownFsbilikLQNCIUMKKK6103-44-88 05:20:00 Test Item Value Reference Range Interpretation Comments Lymphocytes # (test code = Lymphocytes 1.6 1.0-5.5 #) [facility] UptownSmrcvhuBBHUOGFOTK4194-48-18 05:20:00 Test Item Value Reference Range Interpretation Comments Segs-Bands # (test code = Segs-Bands #) 6.7 1.5-8.1 [facility] UptownFbrgduwLXKJORVMDK8444-14-57 05:20:00 Test Item Value Reference Range Interpretation Comments Monocytes # (test code 0.8 See_Comment [Aut omated message] The = Monocytes #) system which generated this result tra nsmitted reference range : <=0.8. The reference r fernando was not used to int erpret this result as normal/abnormal . [facility] UptownLthjiupAYHXMHGTME5947-08-28 05:20:00 Test Item Value Reference Range Interpretation Comments Eosinophils # (test code 0.1 See_Comment [A utomated message] The = Eosinophils #) system whic h generated this result tra nsmitted reference range : <=0.5. The reference r fernando was not used to int erpret this result as normal/abnormal . [facility] UptownWraoexoFUSTVFILQD1830-83-13 05:20:00 Test Item Value Reference Range Interpretation Comments Monocytes (test code = Monocytes) 8.3 2.0-12.0 [facility] UptownMqnmvnkZAGKIXXQBF9580-12-15 05:20:00 Test Item Value Reference Range Interpretation Comments Eosinophils (test code = 1.4 See_Comment [A utomated message] The Eosinophils) system which ge nerated this result tra nsmitted reference range : <=4.0. The reference r fernando was not used to int erpret this result as normal/abnormal . [facility] UptownHksudinHDZLGKCVTC7481-48-31 05:20:00 Test Item Value Reference Range Interpretation Comments Basophils (test code = 0.4 See_Comment [Aut omated message] The Basophils) system which ge nerated this result tra nsmitted reference range : <=1.0. The reference r fernando was not used to int erpret this result as normal/abnormal . [facility] UptownOxwbkbwAQLSHYYJVT8260-21-02 05:20:00 Test Item Value Reference Range Interpretation Comments Lymphocytes (test code = Lymphocytes) 17.5 20.0-40.0 [facility] UptownQcpkfqjIEEPVURLTR9829-11-82 05:20:00 Test Item Value Reference Range Interpretation Comments Segs (test code = Segs) 72.4 45.0-75.0 [facility] UptownOifyzewXTHXHCZMKN7252-47-15 05:20:00 Test Item Value Reference Range Interpretation Comments MCV (test code = MCV) 83.0 80.0-98.0 [facility] UptownMnccvofAHGOJDHHKR2015-47-11 05:20:00 Test Item Value Reference Range Interpretation Comments MCH (test code = MCH) 28.3 pg 27.0-31.0 [facility] UptownMhbzzcaUFETAKMUPH6493-45-22 05:20:00 Test Item Value Reference Range Interpretation Comments Hct (test code = Hct) 29.7 36.0-48.0 [facility] UptownTyrdrrhESRVHRQZPP2273-15-09 05:20:00 Test Item Value Reference Range Interpretation Comments Platelet (test code = Platelet) 257 133-450 [facility] UptownRegqcarVMIUSHGJOV0162-05-92 05:20:00 Test Item Value Reference Range Interpretation Comments MPV (test code = MPV) 8.3 7.4-10.4 [facility] UptownHnmoyorWBJWDBFGKB6307-54-16 05:20:00 Test Item Value Reference Range Interpretation Comments RDW (test code = RDW) 15.1 11.5-14.5 [facility] UptownSomdtmzZJAYAXWQDP8548-34-31 05:20:00 Test Item Value Reference Range Interpretation Comments MCHC (test code = MCHC) 34.1 32.0-36.0 [facility] UptownXesraowROFOQLJPJV5106-70-06 05:20:00 Test Item Value Reference Range Interpretation Comments RBC (test code = RBC) 3.58 4.20-5.40 [facility] UptownIkjacknUBWIDXXHWP0466-40-56 05:20:00 Test Item Value Reference Range Interpretation Comments Hgb (test code = Hgb) 10.1 12.0-16.0 [facility] UptownYkqarfmRQRPEMTGHC9294-73-95 05:20:00 Test Item Value Reference Range Interpretation Comments WBC (test code = WBC) 9.3 3.7-10.4 [facility] UptownAfwddowHOZOSYUNOY2605-09-20 10:57:00 Test Item Value Reference Range Interpretation Comments PTT (test code = PTT) 48.4 s 22.9-35.8 [facility] UptownXkbprokUVUDTYYDHR8089-58-22 10:57:00 Test Item Value Reference Range Interpretation Comments INR (test code = INR) 1.17 1 0.85-1.17 [facility] UptownQhoudebJYTEMFCXJU0285-24-46 10:57:00 Test Item Value Reference Range Interpretation Comments PT (test code = PT) 15.0 s 12.0-14.7 [facility] UptownJvjnvsfKYIHROMUFZ4139-44-78 10:57:00 Test Item Value Reference Range Interpretation Comments Ly30 (test code = 2.3 See_Comment [Automate d message] The Ly30) system which ge nerated this result transmit timur reference range : <=7.5. The reference range was not used to interpr et this result as jasmyne l/abnormal. [facility] UptownJjnbtbsHDERGVJHMD5662-88-06 10:57:00 Test Item Value Reference Range Interpretation Comments TEG Data (test code = See Note (02/08/18 5:57 TEG Data) AM) [facility] UptownDxnpawcDZDQWDPQGN7984-38-63 10:57:00 Test Item Value Reference Range Interpretation Comments Coag Index (test code 4.0 1 See_Comment [Auto mated message] The = Coag Index) system which g enerated this result transmit timur reference range : <=3.0. The reference range was not used to interpr et this result as jasmyne l/abnormal. [facility] UptownTmhalvqIBTANRHWDF2932-98-13 10:57:00 Test Item Value Reference Range Interpretation Comments G-value (test code = G-value) 12.6 4.5-11.0 [facility] UptownQvpyoyeGHSZJICMAM0230-25-75 10:57:00 Test Item Value Reference Range Interpretation Comments Max Amp (test code = Max Amp) 71.6 mm 50.0-70.0 [facility] UptownHokvkljKZWCLRHZEL1955-84-97 10:57:00 Test Item Value Reference Range Interpretation Comments Angle (test code = Angle) 74.1 degrees 53.0-72.0 [facility] UptownFqaiplkNAZBKMCCGH9641-59-51 10:57:00 Test Item Value Reference Range Interpretation Comments K-time (test code = K-time) 1.1 min 1.0-3.0 [facility] UptownJuwwpqwCMMIVKKWMB8347-08-66 10:57:00 Test Item Value Reference Range Interpretation Comments R-time (test code = R-time) 3.3 min 5.0-10.0 [facility] UptownDllytudUGUPHJNVCK1511-07-97 10:57:00 Test Item Value Reference Range Interpretation Comments TEG Interp (test Thrombelastograph results code = TEG show shortened value of R Interp) and increased values of both Angle Alpha and MA. These findings are suggestive of platelet and enzymatic hypercoagulation which may be seen in early phase of DIC. Monitor for DIC with DIC panel may be indicated. CPT:68421 [facility]2018-05-31 05:45:00 Test Item Value Reference Range Interpretation Comments Magnesium Lvl (test code = Magnesium 2.2 1.8-2.4 Lvl) [facility]2018-05-31 05:45:00 Test Item Value Reference Range Interpretation Comments Phosphorus (test code = Phosphorus) 2.1 2.5-4.5 [facility] CenterIekleoaEQFTQVPMEVNY9931-91-70 05:45:00 Test Item Value Reference Range Interpretation Comments AGAP (test code = AGAP) 13.5 10.0-20.0 [facility] CenterGarlwsxNLWIWDHNVRPP1090-27-92 05:45:00 Test Item Value Reference Range Interpretation Comments BUN (test code = BUN) 13 7-22 [facility] CenterOqmodaxOCSBBLYFUXMH5821-69-59 05:45:00 Test Item Value Reference Range Interpretation Comments Creatinine Lvl (test code = Creatinine 0.73 0.50-1.40 Lvl) [facility] CenterXvjzfqmEWBFGONUOIKA2597-74-39 05:45:00 Test Item Value Reference Range Interpretation Comments Calcium Lvl (test code = Calcium Lvl) 8.7 8.5-10.5 [facility] CenterIebtxbwOZASZCLXFTUZ2028-39-41 05:45:00 Test Item Value Reference Range Interpretation Comments Chloride Lvl (test code = Chloride Lvl) 105 95-109 [facility] CenterGylzwjmEHYAEPBZRSWX6863-68-57 05:45:00 Test Item Value Reference Range Interpretation Comments CO2 (test code = CO2) 24 24-32 [facility] CenterGkcjxwlMCKLTVNTCQEZ9182-35-98 05:45:00 Test Item Value Reference Range Interpretation Comments eGFR (test code = eGFR) 79 [facility] CenterUdgsnbeFYXERQZSSURG4286-75-87 05:45:00 Test Item Value Reference Range Interpretation Comments Glucose Lvl (test code = Glucose Lvl) 139 70-99 [facility] UptownNpcqczvNSKKZPWUGK7102-07-85 05:45:00 Test Item Value Reference Range Interpretation Comments WBC (test code = WBC) 8.7 3.7-10.4 [facility] UptownZfcsaqcRQEDFWALAS7353-84-54 05:45:00 Test Item Value Reference Range Interpretation Comments RDW (test code = RDW) 14.8 11.5-14.5 [facility] UptownIxgwuolXOJNNTAIBY4564-86-02 05:45:00 Test Item Value Reference Range Interpretation Comments MCHC (test code = MCHC) 33.8 32.0-36.0 [facility] UptownUgdyvxeEZESRNBYWZ9126-18-43 05:45:00 Test Item Value Reference Range Interpretation Comments MCH (test code = MCH) 28.3 pg 27.0-31.0 [facility] UptownFilgnnlDBWPWDTPRW4173-08-55 05:45:00 Test Item Value Reference Range Interpretation Comments MPV (test code = MPV) 8.2 7.4-10.4 [facility] UptownEdzjrmyUVHVNSNORX3202-74-71 05:45:00 Test Item Value Reference Range Interpretation Comments Platelet (test code = Platelet) 228 133-450 [facility] UptownNhewqbkZHLZBWCGVD8585-40-31 05:45:00 Test Item Value Reference Range Interpretation Comments Hgb (test code = Hgb) 9.5 12.0-16.0 [facility] UptownNdgslbvELEZMOUHMI4913-88-52 05:45:00 Test Item Value Reference Range Interpretation Comments Hct (test code = Hct) 28.0 36.0-48.0 [facility] UptownQvvadvgQBGIKZRKMF9840-79-70 05:45:00 Test Item Value Reference Range Interpretation Comments MCV (test code = MCV) 83.8 80.0-98.0 [facility] UptownAckwlthTDYOCOYSCE9134-49-20 05:45:00 Test Item Value Reference Range Interpretation Comments RBC (test code = RBC) 3.34 4.20-5.40 [facility] UptownWgsiqsoJVUIBYPDXI6472-47-29 05:45:00 Test Item Value Reference Range Interpretation Comments Lymphocytes (test code = Lymphocytes) 16.6 20.0-40.0 [facility] UptownAlqpugyEKTTBQSWDM0975-39-14 05:45:00 Test Item Value Reference Range Interpretation Comments Segs (test code = Segs) 73.5 45.0-75.0 [facility] UptownWjiytjdYVKTCCIKWC5976-71-99 05:45:00 Test Item Value Reference Range Interpretation Comments Monocytes # (test code 0.8 See_Comment [Aut omated message] The = Monocytes #) system which generated this result tra nsmitted reference range : <=0.8. The reference r fernando was not used to int erpret this result as normal/abnormal . [facility] UptownFpuclkkXHFKAZZFQY1019-50-31 05:45:00 Test Item Value Reference Range Interpretation Comments Segs-Bands # (test code = Segs-Bands #) 6.4 1.5-8.1 [facility] UptownAdgkyjtXFCRNOMBKA0586-76-71 05:45:00 Test Item Value Reference Range Interpretation Comments Basophils (test code = 0.1 See_Comment [Aut omated message] The Basophils) system which ge nerated this result tra nsmitted reference range : <=1.0. The reference r fernando was not used to int erpret this result as normal/abnormal . [facility] UptownQmihwjgLABISOBJHT7311-73-87 05:45:00 Test Item Value Reference Range Interpretation Comments Eosinophils (test code = 0.4 See_Comment [A utomated message] The Eosinophils) system which ge nerated this result tra nsmitted reference range : <=4.0. The reference r fernando was not used to int erpret this result as normal/abnormal . [facility] UptownWdcxrzbPJYNJHZJAL1339-64-54 05:45:00 Test Item Value Reference Range Interpretation Comments Monocytes (test code = Monocytes) 9.4 2.0-12.0 [facility] UptownZfcbutmTAWOBMOMDX6980-95-10 05:45:00 Test Item Value Reference Range Interpretation Comments Lymphocytes # (test code = Lymphocytes 1.4 1.0-5.5 #) [facility] TaylorRO[facility] LHXDSNR4777-86-26 05:45:00 Test Item Value Reference Range Interpretation Comments Ca Norm WB (test code = Ca Norm WB) 1.15 1.05-1.25 [facility] TaylorROID TCGDHEO9500-50-21 05:45:00 Test Item Value Reference Range Interpretation Comments Ca Ion WB (test code = Ca Ion WB) 1.12 1.05-1.25 [facility] EVWSQ3038-28-44 05:06:00 Test Item Value Reference Range Interpretation Comments Magnesium Lvl (test code = Magnesium 2.4 1.8-2.4 Lvl) [facility]2018-05-30 05:06:00 Test Item Value Reference Range Interpretation Comments Phosphorus (test code = Phosphorus) 2.6 2.5-4.5 [facility] UptownBgyazzuSCRWPPPLQJ6495-40-76 05:06:00 Test Item Value Reference Range Interpretation Comments PTT (test code = PTT) 52.3 s 22.9-35.8 [facility] UptownOpgatjhIETBVDFJBJ7135-85-03 05:06:00 Test Item Value Reference Range Interpretation Comments PT (test code = PT) 14.8 s 12.0-14.7 [facility] UptownLpjdgksDICUDLAMWW4935-45-07 05:06:00 Test Item Value Reference Range Interpretation Comments INR (test code = INR) 1.16 1 0.85-1.17 [facility] UptownXfrlisgIUDFDGOPLM4820-74-86 05:06:00 Test Item Value Reference Range Interpretation Comments Estimated % Lysis Rapid 2.0 See_Comment [Au tomated message] The (test code = Estimated syste m which generated % Lysis Rapid) this result t ransmitted reference range : <=7.5. The reference r fernando was not used to int erpret this result as normal/abnormal . [facility] UptownObjhiyzSGJOITXHNF9874-30-06 05:06:00 Test Item Value Reference Range Interpretation Comments R-time Rapid (test code = R-time 0.8 min 0.4-0.7 Rapid) [facility] UptownOpvstfsNRELWTWBLK3368-65-68 05:06:00 Test Item Value Reference Range Interpretation Comments K-time Rapid (test code = K-time 0.8 min 0.6-2.3 Rapid) [facility] UptownZjoqlbcIDBBZRNYVP7982-05-21 05:06:00 Test Item Value Reference Range Interpretation Comments Split Point Rapid (test code = Split 0.7 min Point Rapid) [facility] UptownRfseizvGZKPCSVCLP1735-97-53 05:06:00 Test Item Value Reference Range Interpretation Comments Angle Rapid (test code = Angle 80 degrees 64-80 Rapid) [facility] UptownBfhjrokOCJIBFTZHU5817-28-45 05:06:00 Test Item Value Reference Range Interpretation Comments Max Amplitude Rapid (test code = Max 76 mm 52-71 Amplitude Rapid) [facility] UptownYcaxsclLAYSBEUVVX6809-50-28 05:06:00 Test Item Value Reference Range Interpretation Comments ACT (TEG) Rapid (test code = ACT (TEG) 121 s 86-118 Rapid) [facility] UptownEalijahTFQJUSZFBG7939-04-52 05:06:00 Test Item Value Reference Range Interpretation Comments G-value Rapid (test code = G-value 15.5 5.0-11.6 Rapid) [facility]ptownUakgscbTNXACQAZHQ6310-06-78 05:06:00 Test Item Value Reference Range Interpretation Comments WBC (test code = WBC) 7.3 3.7-10.4 [facility] UptownHmvnqfdZECILXLPIN4294-09-66 05:06:00 Test Item Value Reference Range Interpretation Comments RBC (test code = RBC) 3.28 4.20-5.40 [facility] UptownZtzrfsaXJMGACCUII6575-93-45 05:06:00 Test Item Value Reference Range Interpretation Comments MPV (test code = MPV) 8.0 7.4-10.4 [facility] UptownZlzdsjcJMPYAZCTKV7788-52-96 05:06:00 Test Item Value Reference Range Interpretation Comments MCHC (test code = MCHC) 34.8 32.0-36.0 [facility] UptownYolswasQNAPLOXHTM8576-55-51 05:06:00 Test Item Value Reference Range Interpretation Comments RDW (test code = RDW) 14.6 11.5-14.5 [facility] UptownIebxrvcZLRGXXTTOM3128-57-45 05:06:00 Test Item Value Reference Range Interpretation Comments Platelet (test code = Platelet) 228 133-450 [facility] UptownFxdwcdxKYJZHHVVCU1601-12-17 05:06:00 Test Item Value Reference Range Interpretation Comments MCV (test code = MCV) 82.5 80.0-98.0 [facility] UptownRtloxyhWECHJQEIQC0648-61-38 05:06:00 Test Item Value Reference Range Interpretation Comments MCH (test code = MCH) 28.7 pg 27.0-31.0 [facility] UptownVejjmioDKEMQWQBGX4832-59-28 05:06:00 Test Item Value Reference Range Interpretation Comments Hgb (test code = Hgb) 9.4 12.0-16.0 [facility] UptownSbtrefgXTUOCVJIMO8732-12-23 05:06:00 Test Item Value Reference Range Interpretation Comments Hct (test code = Hct) 27.0 36.0-48.0 [facility] UptownJpqgznqESFCNOIGQT4192-40-60 05:06:00 Test Item Value Reference Range Interpretation Comments Monocytes # (test code 0.9 See_Comment [Aut omated message] The = Monocytes #) system which generated this result tra nsmitted reference range : <=0.8. The reference r fernando was not used to int erpret this result as normal/abnormal . [facility] UptownUwmeojxOIDUMRYYZT8899-30-26 05:06:00 Test Item Value Reference Range Interpretation Comments Eosinophils # (test code 0.1 See_Comment [A utomated message] The = Eosinophils #) system whic h generated this result tra nsmitted reference range : <=0.5. The reference r fernando was not used to int erpret this result as normal/abnormal . [facility] UptownWwrijwuLDSGDMODIY0203-34-06 05:06:00 Test Item Value Reference Range Interpretation Comments Lymphocytes # (test code = Lymphocytes 1.6 1.0-5.5 #) [facility] UptownXvvctvkJPDAGVIKWM7408-74-09 05:06:00 Test Item Value Reference Range Interpretation Comments Segs-Bands # (test code = Segs-Bands #) 4.8 1.5-8.1 [facility] UptownDblkducQDFKMCFVCG9152-11-43 05:06:00 Test Item Value Reference Range Interpretation Comments Basophils (test code = 0.1 See_Comment [Aut omated message] The Basophils) system which ge nerated this result tra nsmitted reference range : <=1.0. The reference r fernando was not used to int erpret this result as normal/abnormal . [facility] UptownGmditguRSYKKJAQNC5627-99-42 05:06:00 Test Item Value Reference Range Interpretation Comments Monocytes (test code = Monocytes) 12.4 2.0-12.0 [facility] UptownNpsplqaPETFCDXFWX9931-89-53 05:06:00 Test Item Value Reference Range Interpretation Comments Eosinophils (test code = 0.8 See_Comment [A utomated message] The Eosinophils) system which ge nerated this result tra nsmitted reference range : <=4.0. The reference r fernando was not used to int erpret this result as normal/abnormal . [facility] UptownDtasklxVSTEQEVFRD5023-82-68 05:06:00 Test Item Value Reference Range Interpretation Comments Lymphocytes (test code = Lymphocytes) 21.4 20.0-40.0 [facility] UptownTubjazsMNBOJWIAQV8090-41-40 05:06:00 Test Item Value Reference Range Interpretation Comments Segs (test code = Segs) 65.3 45.0-75.0 [facility] TaylorROID [id number] 05:06:00 Test Item Value Reference Range Interpretation Comments Ca Ion WB (test code = Ca Ion WB) 1.14 1.05-1.25 [facility] TaylorROID [id number] 05:06:00 Test Item Value Reference Range Interpretation Comments Ca Norm WB (test code = Ca Norm WB) 1.14 1.05-1.25 [facility]iCreate [id number] 21:23:00 Test Item Value Reference Range Interpretation Comments Lactic Acid Lvl (test code = Lactic 1.7 0.5-2.2 Acid Lvl) [facility]villeUlmart [id number] 15:19:00 Test Item Value Reference Range Interpretation Comments Procalcitonin Lvl (test no gt See_Comment [Au tomated message] code = Procalcitonin Lvl) Th e system which generated this result transmitted ref erence range: <=0.10. The reference range was not used to interpr et this result as normal/abnormal . [facility] GreenvilleBACTERIAL - [id number] 15:03:00 Test Item Value Reference Range Interpretation Comments MRSA by PCR (test Negative (02/06/18 10:03 code = MRSA by PCR) AM) [facility] GreenvilleUlmart [id number] 15:03:00 Test Item Value Reference Range Interpretation Comments Lactic Acid Lvl (test code = Lactic 2.1 0.5-2.2 Acid Lvl) [facility] GreenvilleCARDIAC [id number] 10:01:00 Test Item Value Reference Range Interpretation Comments Troponin-I (test code no gt See_Comment [Auto mated message] The = Troponin-I) system which g enerated this result transmit timur reference range : <=0.40. The reference r fernando was not used to interpr et this result as jasmyne l/abnormal. [facility] AliceBridgePoint MedicalCARDIAC [id number] 10:01:00 Test Item Value Reference Range Interpretation Comments Troponin-T (test code no gt See_Comment [Auto mated message] The = Troponin-T) system which g enerated this result transmit timur reference range : <=0.100. The reference r fernando was not used to interpr et this result as jasmyne l/abnormal. [facility]CARD[facility] [id number] 10:01:00 Test Item Value Reference Range Interpretation Comments Total CK (test code = Total CK) 188 12-191 [facility] [id number] 10:01:00 Test Item Value Reference Range Interpretation Comments CK MB Index (test 1.2 1 See_Comment [Automate d message] The code = CK MB Index) system w the [facility] generated this result transmit timur reference range : <=2.5. The reference range was not used to interpr et this result as jasmyne l/abnormal. [facility]wireannCARDIAC [id number] 10:01:00 Test Item Value Reference Range Interpretation Comments CK MB (test code = CK MB) 2.3 0.5-3.6 [facility] QwikwireannPARATHYROID [id number] 06:28:00 Test Item Value Reference Range Interpretation Comments Ca Norm WB (test code = Ca Norm WB) 1.00 1.05-1.25 [facility] QwikwireannPARATHYROID [id number] 06:28:00 Test Item Value Reference Range Interpretation Comments Ca Ion WB (test code = Ca Ion WB) 0.99 1.05-1.25 [facility]annCARDIAC [id number] 05:16:00 Test Item Value Reference Range Interpretation Comments CK MB Index (test 1.5 1 See_Comment [Automate d message] The code = CK MB Index) system w the [facility] generated this result transmit timur reference range : <=2.5. The reference range was not used to interpr et this result as jasmyne l/abnormal. [facility]wireannCARDIAC [id number] 05:16:00 Test Item Value Reference Range Interpretation Comments CK MB (test code = CK MB) 1.4 0.5-3.6 [facility]annCARDIAC [id number] 05:16:00 Test Item Value Reference Range Interpretation Comments Troponin-T (test code no gt See_Comment [Auto mated message] The = Troponin-T) system which g enerated this result transmit timur reference range : <=0.100. The reference r fernando was not used to interpr et this result as jasmyne l/abnormal. [employer] [id number] 05:16:00 Test Item Value Reference Range Interpretation Comments Troponin-I (test code no gt See_Comment [Auto mated message] The = Troponin-I) system which g enerated this result transmit timur reference range : <=0.40. The reference r fernando was not used to interpr et this result as jasmyne l/abnormal. [facility] [employer] [id number] 05:16:00 Test Item Value Reference Range Interpretation Comments Total CK (test code = Total CK) 94 12-191 [facility] [employer] [id number] 05:16:00 Test Item Value Reference Range Interpretation Comments Albumin Lvl (test code = Albumin Lvl) 3.2 3.5-5.0 [facility] [employer] [id number] 05:16:00 Test Item Value Reference Range Interpretation Comments B/C Ratio (test code = B/C Ratio) 14 1 6-25 [facility] [employer]2018-05-29 05:16:00 Test Item Value Reference Range Interpretation Comments Total Protein (test code = Total 6.4 6.4-8.4 Protein) [facility] [employer] [id number] 05:16:00 Test Item Value Reference Range Interpretation Comments Globulin (test code = Globulin) 3.2 2.7-4.2 [facility] [employer]2018-05-29 05:16:00 Test Item Value Reference Range Interpretation Comments ALT (test code = ALT) 16 See_Comment [Auto mated message] The system which ge nerated this result transmit timur reference range : <=65. The reference range was not used to interpr et this result as jasmyne l/abnormal. [facility] [employer] [id number] 05:16:00 Test Item Value Reference Range Interpretation Comments A/G Ratio (test code = A/G Ratio) 1.0 1 0.7-1.6 [facility] [employer]2018-05-29 05:16:00 Test Item Value Reference Range Interpretation Comments Bili Total (test code = Bili Total) 0.3 0.2-1.3 [facility] [employer]2018-05-29 05:16:00 Test Item Value Reference Range Interpretation Comments Alk Phos (test code = Alk Phos) 67 39-136 [facility] [employer] [id number] 05:16:00 Test Item Value Reference Range Interpretation Comments AST (test code = AST) 14 See_Comment [Auto mated message] The system which ge nerated this result transmit timur reference range : <=37. The reference range was not used to interpr et this result as jasmyne l/abnormal. [facility]2018-05-29 05:16:00 Test Item Value Reference Range Interpretation Comments Magnesium Lvl (test code = Magnesium 1.6 1.8-2.4 Lvl) [facility]2018-05-29 05:16:00 Test Item Value Reference Range Interpretation Comments Phosphorus (test code = Phosphorus) 2.1 2.5-4.5 [facility] UptownLgwoncuYFCWBXQBWZ5592-18-71 05:16:00 Test Item Value Reference Range Interpretation Comments Estimated % Lysis Rapid 0.9 See_Comment [Au tomated message] The (test code = Estimated syste m which generated % Lysis Rapid) this result t ransmitted reference range : <=7.5. The reference r fernando was not used to int erpret this result as normal/abnormal . [facility] UptownNbkyyspCTNVBGIKTX0496-32-97 05:16:00 Test Item Value Reference Range Interpretation Comments G-value Rapid (test code = G-value 11.7 5.0-11.6 Rapid) [facility] UptownJtsceslMTUUDATJFM9300-50-21 05:16:00 Test Item Value Reference Range Interpretation Comments K-time Rapid (test code = K-time 0.8 min 0.6-2.3 Rapid) [facility] UptownGskchebGJHVWLXJVX7123-52-28 05:16:00 Test Item Value Reference Range Interpretation Comments Angle Rapid (test code = Angle 76 degrees 64-80 Rapid) [facility] UptownMyavsxoZKJMWFBVAE1346-78-65 05:16:00 Test Item Value Reference Range Interpretation Comments Max Amplitude Rapid (test code = Max 70 mm 52-71 Amplitude Rapid) [facility] UptownQmcrdgbLJQRKVVIVD7686-35-18 05:16:00 Test Item Value Reference Range Interpretation Comments ACT (TEG) Rapid (test code = ACT (TEG) 121 s 86-118 Rapid) [facility] UptownCeeagzpHPRJVEKUDN6393-37-34 05:16:00 Test Item Value Reference Range Interpretation Comments Split Point Rapid (test code = Split 0.4 min Point Rapid) [facility] UptownJbfvxqdYJQMNJUYAB9980-59-92 05:16:00 Test Item Value Reference Range Interpretation Comments R-time Rapid (test code = R-time 0.8 min 0.4-0.7 Rapid) [facility] UptownOcmaernPBFBIMPTAH3521-16-42 05:16:00 Test Item Value Reference Range Interpretation Comments INR (test code = INR) 1.14 1 0.85-1.17 [facility] UptownJuekomsBSYAAFRNQH5783-50-23 05:16:00 Test Item Value Reference Range Interpretation Comments PTT (test code = PTT) 46.9 s 22.9-35.8 [facility] UptownJgwdytgOYYGZBNNQF3171-89-14 05:16:00 Test Item Value Reference Range Interpretation Comments PT (test code = PT) 14.6 s 12.0-14.7 [facility]hyxZYWGMLFLLL4808[facility]-25 01:34:00 Test Item Value Reference Range Interpretation Comments Plav Effect Plt (test code = Plav 220 Effect Plt) [facility] UptownJrkcsguEUMBBHOFRQ5486-67-89 01:34:00 Test Item Value Reference Range Interpretation Comments ASA Effect Plt (test code = ASA Effect 540 Plt) [facility] [id number] 01:29:00 Test Item Value Reference Range Interpretation Comments CK MB (test code = CK MB) 0.9 0.5-3.6 [facility] [id number] 01:29:00 Test Item Value Reference Range Interpretation Comments CK MB Index (test 1.2 1 See_Comment [Automate d message] The code = CK MB Index) system w the [facility] generated this result transmit timur reference range : <=2.5. The reference range was not used to interpr et this result as jasmyne l/abnormal. [facility] GreenvilleDispersol TechnologiesLA[facility] [id number] 01:29:00 Test Item Value Reference Range Interpretation Comments Troponin-T (test code no gt See_Comment [Auto mated message] The = Troponin-T) system which g enerated this result transmit timur reference range : <=0.100. The reference r fernando was not used to interpr et this result as jasmyne l/abnormal. [facility] [id number] 01:29:00 Test Item Value Reference Range Interpretation Comments Troponin-I (test code no gt See_Comment [Auto mated message] The = Troponin-I) system which g enerated this result transmit timur reference range : <=0.40. The reference r fernando was not used to interpr et this result as jasmyne l/abnormal. [facility]annCARDIAC [id number] 01:29:00 Test Item Value Reference Range Interpretation Comments Total CK (test code = Total CK) 77 12-191 [facility]annCHEM [id number] 01:29:00 Test Item Value Reference Range Interpretation Comments Lactic Acid Lvl (test code = Lactic 1.6 0.5-2.2 Acid Lvl) [facility]annCHEM [id number] 01:29:00 Test Item Value Reference Range Interpretation Comments Osmolality (test code = Osmolality) 273 280-300 [facility] [id number] 01:29:00 Test Item Value Reference Range Interpretation Comments UA Sq Epi (test code = UA Sq Epi) None Seen [facility] [id number] 01:29:00 Test Item Value Reference Range Interpretation Comments UA Urobilinogen (test code = UA <=1.0 mg/dL 0.1-1.0 Urobilinogen) [facility]annUR[facility] AND [id number] 01:29:00 Test Item Value Reference Range Interpretation Comments UA Color (test code = Light Yellow UA Color) *NA*(02/05/18 8:29 PM) [facility] [id number] 01:29:00 Test Item Value Reference Range Interpretation Comments UA Spec Grav (test code = UA Spec 1.010 1 Grav) [facility] [id number] 01:29:00 Test Item Value Reference Range Interpretation Comments UA pH (test code = UA pH) 7.5 1 5.0-8.0 [facility] [id number] 01:29:00 Test Item Value Reference Range Interpretation Comments UA Turbidity (test code Slight *ABN*(02/05/18 = UA Turbidity) 8:29 PM) [facility] [id number] 01:29:00 Test Item Value Reference Range Interpretation Comments UA Glucose (test code = UA Glucose) 300 mg/dL [facility] [id number] 01:29:00 Test Item Value Reference Range Interpretation Comments UA Protein (test code = UA Protein) 100 mg/dL [facility]UR[facility] AND [id number] 01:29:00 Test Item Value Reference Range Interpretation Comments UA Ketones (test code = UA Ketones) 20 mg/dL [facility] AND [id number] 01:29:00 Test Item Value Reference Range Interpretation Comments UA Nitrite (test code Negative (02/05/18 8:29 = UA Nitrite) PM) [facility] AND [id number] 01:29:00 Test Item Value Reference Range Interpretation Comments UA WBC (test code = 1 See_Comment [Automa timur message] The UA WBC) system which ge nerated this result transmit timur reference range : <=5. The reference range was not used to interpr et this result as jasmyne l/abnormal. [facility] AND [id number] 01:29:00 Test Item Value Reference Range Interpretation Comments UA Leuk Est (test Negative (02/05/18 8:29 code = UA Leuk Est) PM) [facility] AND [id number] 01:29:00 Test Item Value Reference Range Interpretation Comments UA RBC (test code = 3 See_Comment [Automa timur message] The UA RBC) system which ge nerated this result transmit timur reference range : <=2. The reference range was not used to interpr et this result as jasmyne l/abnormal. [facility] AND [id number] 01:29:00 Test Item Value Reference Range Interpretation Comments UA Amorph Aliya (test code = UA Few /HPF Amorph Aliya) [facility] AND [id number] 01:29:00 Test Item Value Reference Range Interpretation Comments UA Mucus (test code = UA Mucus) Few /LPF [facility] AND [id number] 01:29:00 Test Item Value Reference Range Interpretation Comments UA Blood (test code = Negative (02/05/18 8:29 UA Blood) PM) [facility] AND [id number] 01:29:00 Test Item Value Reference Range Interpretation Comments UA Bili (test code = Negative *NA*(02/05/18 UA Bili) 8:29 PM) [facility] [id number] 01:29:00 Test Item Value Reference Range Interpretation Comments U Osmolality (test code = U Osmolality) 477 300-800 [facility] [id number] 01:29:00 Test Item Value Reference Range Interpretation Comments U Sodium (test code = U Sodium) [address] [facility] HospitalPodP[facility] [id number] 01:25:00 Test Item Value Reference Range Interpretation Comments FFP product (test code Product available = FFP product) (02/05/18 8:25 PM) [facility] [id number] 23:04:00 Test Item Value Reference Range Interpretation Comments ACT (TEG) Rapid (test code = ACT (TEG) 144 s 86-118 Rapid) [facility] [id number] 23:04:00 Test Item Value Reference Range Interpretation Comments Split Point Rapid (test code = Split 0.7 min Point Rapid) [facility] UptownPhdfexnOVMDFHELFQ9885-95-09 23:04:00 Test Item Value Reference Range Interpretation Comments K-time Rapid (test code = K-time 0.9 min 0.6-2.3 Rapid) [facility] UptownJiswpfvUCDKTVQMBB5191-24-58 23:04:00 Test Item Value Reference Range Interpretation Comments R-time Rapid (test code = R-time 1.0 min 0.4-0.7 Rapid) [facility] [id number] 23:04:00 Test Item Value Reference Range Interpretation Comments Max Amplitude Rapid (test code = Max 75 mm 52-71 Amplitude Rapid) [facility] UptownDwfxmvbZANFPOVCBF3101-82-92 23:04:00 Test Item Value Reference Range Interpretation Comments Angle Rapid (test code = Angle 76 degrees 64-80 Rapid) [facility] UptownNkfalysFCTWKXNIGZ0692-75-12 23:04:00 Test Item Value Reference Range Interpretation Comments G-value Rapid (test code = G-value 14.8 5.0-11.6 Rapid) [facility] UptownHczidpqZBMPQKVFZY2125-84-48 23:04:00 Test Item Value Reference Range Interpretation Comments Estimated % Lysis Rapid 0.0 See_Comment [Au tomated message] The (test code = Estimated syste m which generated % Lysis Rapid) this result t ransmitted reference range : <=7.5. The reference r fernando was not used to int erpret this result as normal/abnormal . [facility]villeeS[facility] [id number] 23:00:00 Test Item Value Reference Range Interpretation Comments ABO/Rh (test code = ABO/Rh) A POS [facility] HospitalPodP[facility] [id number] 23:00:00 Test Item Value Reference Range Interpretation Comments Antibody Scrn (test Negative (02/05/18 6:00 code = Antibody Scrn) PM) [facility]
[2023-02-07] MEDS ORDERED: NA CHLORIDE 0.9% 500 ML ONE (14:34)
[2023-02-07 14:46] LABS: Absolute Lymphocytes (CBC) 1.6 K/uL (0.7-4.9); Hematocrit 33.3 % (36.0-45.0); Lymphocytes % 25.8 % (15.3-44.8); MCV 86.2 fL (80-100); MPV 8.3 fL (7.6-11.3); RBC Red Blood Cell Count 3.87 M/uL (3.86-4.86)
[2023-02-07 15:04] LABS: Albumin 3.4 g/dL (3.4-5.0); Bilirubin Total 0.3 mg/dL (0.2-1.0); Potassium 3.3 mEq/L (3.5-5.1); Protein, Total 6.8 g/dL (6.4-8.2)
--- NOTE | 2023-02-07 15:47 | EDPHYS ---
Physician Documentation [facility] Name: Skylar Grossman Age: 87 yrs Sex: Female : 1935 Arrival Date: 02/07/2023 Time: 13:30 Bed 19 Private MD: ED Physician Sg Malik HPI: 02/07 14:51 This 87 yrs old Female presents to ER via EMS with complaints of Syncope. bs3 14:51 37-year-old male history of pacemaker, CVA, depression, diabetes presents after bs3 syncopal episode she was having a bowel movement screened and passed out she denies any presyncopal headache chest pain shortness of breath or abdominal pain denies any fevers or chills she now notes well. 14:52 She notes similar symptoms happening once before she now notes that she is feeling well bs3 and wants to go home she is here with her sister she does not know why she has a pacemaker. Historical: - Allergies: 14:02 Codeine (Upset stomach); mb9 14:02 Morphine; mb9 14:02 meperidine HCl; mb9 - Home Meds: 14:19 amlodipine 10 mg tablet daily [Active]; atorvastatin 10 mg Oral tablet every day at mb9 bedtime [Active]; gabapentin 300 mg Oral capsule 3 times per day [Active]; hydralazine 100 mg Oral tablet 3 times per day [Active]; irbesartan 300 mg Oral tablet daily [Active]; metoclopram 5 mg every 4 hours [Active]; - PMHx: 14:19 Cardiac pacemaker in situ; CVA; Depression; Diabetes - IDDM; Dementia; GERD; mb9 Hypercholesterolemia; Hypertensive disorder; - PSHx: 14:19 Appendectomy; Cholecystectomy; Total abdominal hysterectomy; mb9 - Immunization history:: Adult Immunizations up to date. - Social history:: Smoking status: Patient denies any tobacco usage or history of. ROS: 14:52 Constitutional: Negative for fever, chills bs3 14:52 All other systems are negative. Exam: 14:52 Normal sinus rhythm at [address] elevations or depressions QTc 704 marked goodly bs3 prolonged, right bundle branch block 15:47 Constitutional: This is a well developed, well nourished patient who is awake, alert, bs3 and in no acute distress. Head/Face: Normocephalic, atraumatic. Eyes: Pupils equal round and reactive to light, extra-ocular motions intact. Lids and lashes normal. ENT: mmm, no posterior phyarngeal erythema Neck: Trachea midline, no thyromegaly, no neck stiffness Chest/axilla: Normal chest wall appearance and motion. Nontender with no deformity. No lesions are appreciated. Cardiovascular: Regular rate and rhythm with a normal S1 and S2. symmetric pulses in upper extremities Respiratory: Lungs have equal breath sounds bilaterally, clear to auscultation, no respiratory distress Skin: Warm, dry with normal turgor. Normal color with no rashes, no lesions, and no evidence of cellulitis. MS/ Extremity: Pulses equal, no cyanosis. Neurovascular intact. Full, normal range of motion. Neuro: Awake and alert, GCS 15, oriented to person, place, time, and situation. Cranial nerves II-XII grossly intact. Motor strength 5/5 in all extremities. Sensory grossly intact. Vital Signs: 14:03 BP 113 / 80; Pulse 92; Resp 18; Temp 98.1(O); Pulse Ox 96% on R/A; Weight 77.11 kg; mb9 Height 5 ft. 7 in. ; 16:07 BP 128 / 74; Pulse 88; Resp 18; Pulse Ox 100% on R/A; mb9 14:03 Body Mass Index 26.63 (77.11 kg, 170.18 cm) mb9 MDM: 14:08 Patient medically screened. bs3 14:52 Data reviewed: vital signs, nurses notes. ED course: Patient with likely vasovagal bs3 syncope in the setting of straining during a bowel movement she has a pacemaker in place she does not know what brand it is we will check electrolytes we had a shared decision-making conversation patient desires to go home will discharge home. 15:45 ED course: Labs negative for acute pathology advised outpatient follow-up for her renal bs3 function advised hydration and strict return precautions. 02/07 14:28 Order name: CBC with Diff; Complete Time: 15:44 bs3 02/07 14:28 Order name: Comprehensive Metabolic Panel; Complete Time: 15:26 bs3 02/07 14:28 Order name: EKG - Nurse/Tech; Complete Time: 14:35 bs3 Administered Medications: 14:35 Drug: NS 0.9% IV 500 ml Route: IV; Rate: 1 bolus; Site: right forearm; mb9 Disposition Summary: 02/07/23 15:46 Discharge Ordered Location: Home bs3 Problem: new bs3 Symptoms: have improved bs3 Condition: Stable bs3 Diagnosis - Syncope Near bs3 Followup: bs3 - With: Private Physician - When: 2 - 3 days - Reason: Re-evaluation by your physician Discharge Instructions: - Discharge Summary Sheet bs3 - Syncope, [id number] bs3 Forms: - Medication Reconciliation Form bs3 - Thank You Letter bs3 - Antibiotic Education bs3 - Prescription Opioid Use bs3 Signatures: Dispatcher [employer] EDSg Fallon MD MD bs3 Nehal Delvalle RN RN mb9 Corrections: (The following items were deleted from the chart) 14:21 14:20 PMHx: GERD; mb9 mb9 14:21 14:20 PMHx: Hypertension; mb9 mb9 14:21 14:20 PMHx: High Cholesterol; mb9 mb9
--- NOTE | 2023-02-07 15:47 | ER ---
Nurse's Notes [facility] Name: Skylar Grossman Age: 87 yrs Sex: Female : 1935 Arrival Date: 02/07/2023 Time: 13:30 Bed 19 Private MD: Diagnosis: Syncope Near Presentation: 02/07 14:03 Chief complaint: EMS states: "Toned out for syncope episode on toilet from home. Sister mb9 states pt did not fall or hit head. Pt has no memory of being on toilet. Found unresponsive verbally at first . Pt now alert and oriented, BGL 212, 20 G to right FA, and given 20 mL of 0.9% NS". Coronavirus screen: Vaccine status: Patient reports receiving the 2nd dose of the covid vaccine. Ebola Screen: No symptoms or risks identified at this time. Initial Sepsis Screen: Does the patient meet any 2 criteria? HR > 90 bpm. Does the patient have a suspected source of infection? No. Patient's initial sepsis screen is negative. Risk Assessment: Do you want to hurt yourself or someone else? Patient reports no desire to harm self or others. Onset of symptoms was February 07, 2023. 14:03 Method Of Arrival: EMS: [facility] mb9 14:03 Acuity: FARIDA 2 mb9 Triage Assessment: 14:18 General: Appears in no apparent distress. Behavior is calm, cooperative. Pain: Denies mb9 pain. EENT: No deficits noted. Neuro: Cruz Agitation-Sedation Scale (RASS): 0 - Alert and Calm Level of Consciousness is awake, alert, obeys commands, Oriented to person, place, time, situation, Appropriate for age. Cardiovascular: Heart tones S1 S2 present Patient's skin is warm and dry. Rhythm is regular. Respiratory: Airway is patent Respiratory effort is even, unlabored, Respiratory pattern is regular, symmetrical. GI: Abdomen is round non-distended, Bowel sounds present X 4 quads. Abd is soft and non tender X 4 quads. Derm: Skin is pink, warm \\T\\ dry. Musculoskeletal: Range of motion: intact in all extremities. Historical: - Allergies: 14:02 Codeine (Upset stomach); mb9 14:02 Morphine; mb9 14:02 meperidine HCl; mb9 - Home Meds: 14:19 amlodipine 10 mg tablet daily [Active]; atorvastatin 10 mg Oral tablet every day at 9 bedtime [Active]; gabapentin 300 mg Oral capsule 3 times per day [Active]; hydralazine 100 mg Oral tablet 3 times per day [Active]; irbesartan 300 mg Oral tablet daily [Active]; metoclopram 5 mg every 4 hours [Active]; - PMHx: 14:19 Cardiac pacemaker in situ; CVA; Depression; Diabetes - IDDM; Dementia; GERD; mb9 Hypercholesterolemia; Hypertensive disorder; - PSHx: 14:19 Appendectomy; Cholecystectomy; Total abdominal hysterectomy; mb9 - Immunization history:: Adult Immunizations up to date. - Social history:: Smoking status: Patient denies any tobacco usage or history of. Screenin:21 [facility] ED Fall Risk Assessment (Adult) History of falling in the last 3 months, 9 including since admission Yes- single mechanical fall (1 pt) Confusion or Disorientation No (0 pts) Intoxicated or Sedated No (0 pts) Impaired Gait No (0 pts) Mobility Assist Device Used No (0 pt) Altered Elimination No (0 pt) Score/Fall Risk Level 0 - 2 = Low Risk Oriented to surroundings, Maintained a safe environment, Educated pt \\T\\ family on fall prevention, incl call for assistance when getting out of bed. Abuse screen: Denies threats or abuse. Nutritional screening: No deficits noted. Tuberculosis screening: No symptoms or risk factors identified. Assessment: 14:19 Reassessment: see triage assessment. mb9 16:07 Reassessment: Patient appears in no apparent distress at this time. Patient and/or mb9 family updated on plan of care and expected duration. Pain level reassessed. Patient is alert, oriented x 3, equal unlabored respirations, skin warm/dry/pink. Patient states feeling better. Patient states symptoms have improved. Vital Signs: 14:03 BP 113 / 80; Pulse 92; Resp 18; Temp 98.1(O); Pulse Ox 96% on R/A; Weight 77.11 kg; 9 Height 5 ft. 7 in. ; 16:07 BP 128 / 74; Pulse 88; Resp 18; Pulse Ox 100% on R/A; mb9 14:03 Body Mass Index 26.63 (77.11 kg, 170.18 cm) [facility] ED Course: 14:02 Patient arrived in ED. mb9 14:02 Arm band placed on. mb9 14:15 Sg Malik MD is Attending Physician. bs3 14:18 Triage completed. mb9 14:19 Placed in gown. Bed in low position. Call light in reach. Side rails up X 1. Client mb9 placed on continuous cardiac and pulse oximetry monitoring. NIBP monitoring applied. income tax analyst on. 14:21 No provider procedures requiring assistance completed. Inserted saline lock: 20 gauge mb9 in right forearm, using aseptic technique. 14:34 Nehal Delvalle, RN is Primary Nurse. mb9 14:35 CBC with Diff Sent. mb9 14:35 Comprehensive Metabolic Panel Sent. mb9 14:35 EKG done, by ED staff, reviewed by Sg Malik MD. mb9 16:07 IV discontinued, intact, bleeding controlled, No redness/swelling at site. Pressure mb9 dressing applied. Administered Medications: 14:35 Drug: NS 0.9% IV 500 ml Route: IV; Rate: 1 bolus; Site: right forearm; mb9 Medication: 14:19 VIS not applicable for this client. mb9 Outcome: 15:46 Discharge ordered by . bs3 16:07 Discharged to home ambulatory. mb9 16:07 Condition: stable 16:07 Discharge instructions given to patient, Instructed on discharge instructions, follow up and referral plans. Demonstrated understanding of instructions, follow-up care. 16:11 Patient left the ED. mb9 Signatures: Sg Malik MD MD bs3 Nehal Delvalle, RN RN mb9 Corrections: (The following items were deleted from the chart) 14:21 14:20 PMHx: GERD; mb9 mb9 14:21 14:20 PMHx: Hypertension; mb9 mb9 14:21 14:20 PMHx: High Cholesterol; mb9 mb9
[2023-02-07 16:35] VITALS: TEMP 98.1
[2023-02-07 16:39] VITALS: BP 128/74; O2SAT 100
--- NOTE | 2023-02-08 14:37 | EKG ---
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
== END 2023-02-07 16:11 | disposition home or self-care (01) ==
LOC: ER 13:30
DX: R55 Syncope and collapse (principal); I10 Essential (primary) hypertension; E11.9 Type 2 diabetes mellitus without complications; F03.90 Unspecified dementia, unspecified severity, without behavioral disturbance, psychotic disturbance, mood disturbance, and anxiety; Z95.0 Presence of cardiac pacemaker; Z86.73 Personal history of transient ischemic attack (TIA), and cerebral infarction without residual deficits; Z88.5 Allergy status to narcotic agent; Z88.8 Allergy status to other drugs, medicaments and biological substances
CPT/HCPCS: 93005; 85025; 36415; 80053; 99285; J7040

== ENCOUNTER 2023-02-24 09:10 | Emergency (ER) | payer OTHER ==
--- OUTSIDE RECORDS SUMMARY | 2023-02-24 09:29 | XMS REPORT | Continuity of Care Document ---
:1935 Author Organization [facility] t Address [address] [facility] [address] [place] [address] Care Team Providers Name Role Phone No MD, Pcp [facility] Primary Care Physician Unavailable JUAQUIN MCINTYRE Attending Clinician Unavailable HARINI BETANCOURT Attending Clinician Unavailable HARINI BETANCOURT Attending Clinician Unavailable GILBERT WINSTON Attending Clinician Unavailable Inez Hylton MD Attending Clinician INEZ HYLTON Attending Clinician Unavailable Doctor Unassigned, [place] Attending Clinician Unavailable JARVIS MILLIGAN Attending Clinician Unavailable Liza Zarco Attending Clinician Raul Rosen MD Attending Clinician Jarvis Milligan MD Attending Clinician CASSIUS PINK Attending Clinician Unavailable DAYAMI LOVE Attending Clinician Unavailable Dayami Whitman Attending Clinician [phone] Pob, [facility] Main Attending Clinician [...] Kevin Db Test Attending Clinician Unavailable Pavan AUTO RENTAL CLERK, Jud Attending Clinician JUD CHUA Attending Clinician [...] Date S dianelys MEDICARE PART A AND [id number] 1998 B 00:00:00 MEDICARE A B [id number] 1998 00:00:00 [facility] [id number] 2019 HEALTHCARE 00:00:00 MEDICARE PART A \\T\\ [id number] 1998 B 00:00:00 Problems Condition Condition Condition Status Onset Resolution Last Treating Co mments Source Name Details Category Date Date Treatment Clinician Date Hyponatrem Hyponatrem Disease Recurre Univers ia ia nce 2-14 ity of 00:00: [place] [address] Medical Branch 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 2-14 it y of 00:00: [place] [address] Medical Branch At high At high Disease Active Univers risk for risk for 2-14 ity of seizures seizures 00:00: [place] [address] Medical Branch SUBDURAL SUBDURAL Diagnosis Active 2022-10-10 Memoria RADHA RADHA 10-10 12:36:00 l Active 00:00: Austyn 10/10/2022 00 [facility] TS Diagnosis Active 2022-10-11 Mem oria Active 10-10 12:26:00 l 10/10/2022 00:00: Jax RAHMAN [place] 00 [facility] Sick sinus Sick sinus Disease Active [...] Added automatic ally from request for surgery [id number] Syncope Syncope Disease Active Overview: Univ ers and and 09-13 Formattin ity of collapse collapse 00:00: g of this [place] 00 note Medical might be Branch different from the original. 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 ACUTE SDH ACUTE SDH Diagnosis Active 2018-02-16 Memoria Active 02-05 22:05:00 l 02/05/2018 00:00: Jax sosa [address] Pain in Pain in Disease Active Overview: Univ ers limb limb 12-04 Formattin ity of 00:00: g of this [place] 00 note Medical might be Branch different [...] of and and 00:00: g of this [place] radiculiti radiculiti 00 note Me dical s, s, might be Branch unspecifie unspecifie different d d from the original. Cervical radiculop athy Osteoarthr Osteoarthr Disease Active Overview : Univers itis itis 26 Formattin ity of 00:00: g of this [place] 00 note Medical might be Branch different from the original. ICD10 Diagnosis Term Baker [employer] Esophageal Esophageal Disease Active 2005-09 U nivers reflux reflux 1-15 ity of 00:00: [place] 00 Medical Branch Diabetic Diabetic Disease Active 2005-09 Overview: Un teo polyneurop polyneurop 1-15 Formattin ity of athy athy 00:00: g of this [place] 00 note Medical might be Branch different from the original. ICD10 Diagnosis Term Baker Second Utility Chronic Chronic Disease Active 2005-09 Univers depressive depressive 1-15 it y of [place]it [place] disorder y disorder 00 Me dical Branch HLD HLD Disease Active 2005-09 Overview: Univer s (hyperlipi (hyperlipi 1-15 Formattin ity of demia) demia) 00:00: g of this [place] 00 note Medical might be Branch different from the original. 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 ICD10 Diagnosis Term Baker [employer] Utility Hypertensi Hypertens Problem Resolve 2018-10-22 Memoria ve sudeep d 15:27:05 l disorder, disorder, Herm roxanne systemic systemic arterial arterial (disorder) (disorder) Resolved Problem 10/22/2018 [facility] NONTRAUMAT NONTRAUMA Diagnosis Active 2018-02-16 Memoria IC ACUTE TIC ACUTE 22:05:00 l SUBDURAL SUBDURAL Jax n HEMORRHAGE HEMORRHAGE Active [facility] NONTRAUMAT Diagnosis Active 2018-02-26 Memoria IC CHRONIC NONTRAUMAT 12:06:00 l SUBDURAL IC CHRONIC Herm roxanne HEMORRHAGE SUBDURAL HEMORRHAGE Active [facility] FALL FALL Diagnosis Active 2018-02-19 Mem oria Active 03:11:[address] [facility] TRAUM TRAUM Diagnosis Active 2022-10-11 [facility] oria SUBDR HEM SUBDR HEM 12:26:00 l WITH LOC WITH LOC Jax n STATUS STATUS UNKNOWN, UNKNOWN, Active [facility] Allergies, Adverse Reactions, Alerts Allergy Allergy Status Severity Reaction(s) Onset Inactive Treating Comm ents Source Name Type Date Date Clinician CODEINE Allergy Active 2020-[address] [facility] [place] MEPERIDI Allergy Active 2020-[address] [facility] [facility] 00 [place] MORPHINE Allergy Active 2020-[address] [facility] [...] NE HCL INGREDI 3-10 ity of 00:00: [place] [address] Medical Branch Meperidi Propensi Active Unknown - [...] Natural father High blood pressure C [facility] Social History Social Habit Start Date Stop Date Quantity Comments Source History SDOH Social Unive rsity of Connections [facility] Med ical Together Branch History SDOH Social Unive rsity of Connections [facility] Medical Branch History SDOH Social Unive rsity of Connections [place] Medical Membership Branch History SDOH Social Unive rsity of Connections [place] Medical Meetings Branch History SDOH [facility] [...] 5 University o f Financial 00:00:00 00:00:00 [place] Medical Branch History SDOH Food 2022-10-25 2022-10-25 1 Univers ity of Worry 00:00:00 00:00:00 [place] Medical Branch History SDOH Food 2022-10-25 2022-10-25 1 Univers ity of Scarcity 00:00:00 00:00:00 [place] [facility] [place] Tobacco use and 2022-08-03 2022-08-03 Smokeless Universit y of exposure 00:00:00 00:00:00 tobacco non-user [place] Me dical Branch History SDOH 2020-03-27 2020-03-[address] [facility] Alcohol Frequency 00:00:00 00:00:[address] [facility] Alcohol intake 2020-03-26 2020-03-[address] [facility] 00:00:00 00:00:00 non-drinker of Medical Ce nter alcohol (finding) Social History 2018-02-19 2018-02-19 [facility] 11:13:34 11:13:34 Sex Assigned At [address] [facility] 00:00:00 00:00:[address] [facility] Smoking Status Start Date Stop Date Source Never smoked tobacco [facility] Medications Ordered Filled Start Stop Current Ordering Indication Dosage Frequency Signature Comments Components Source Medication Medication Date Date Medication? Clinician (SIG) Name Name amLODIPine 2022- Yes 5mg Take 5 mg [place] 5 mg tablet 2-21 by mouth ity of 17:33: at [place] [address] bedtime. Medical Branch aspirin 81 2022-0 Yes 81mg Take 81 mg U nivers mg EC 2-21 by mouth ity of tablet 17:33: in the [place] [address] morning. Medical Branch lisinopriL 2022-0 Yes 20mg Take 20 mg U nivers 20 mg 2-21 by mouth ity of tablet 17:33: in the [place] [address] morning Medical and 20 mg Branch in the evening. metFORMIN 2022-0 Yes 500mg Take 500 Uni vers 500 mg 2-21 mg by ity of tablet 17:33: mouth in [place] [address] the Medical morning Branch and 500 mg in the evening. Take with meals. pantoprazol 2022-0 Yes 40mg Take 40 mg Univers e 2-21 by mouth ity of (PROTONIX) 17:33: in the [place] 20 mg EC 53 morning. Medical tablet Branch tamsulosin 2022-[address] [facility] ers (FLOMAX) 2-21 mouth ity of 0.4 mg 24 17:33: daily. [place] hr capsule 53 Medical Branch FLUoxetine 2022-0 Yes 20mg Take 20 mg U nivers 20 mg 2-21 by mouth ity of capsule 17:33: in the [place] [address] morning. Medical Branch gabapentin 2022-0 Yes 300mg Take 300 Un teo 300 mg 2-21 mg by ity of capsule 17:33: mouth 2 [place] 53 (two) Medical times Branch daily as needed. memantine 2022-0 Yes 10mg Take 10 mg Un te[place] 10 mg 2-21 by mouth ity of tablet 17:33: in the [place] [address] morning Medical and 10 mg Branch in the evening. simvastatin 2022-0 Yes 20mg Take 20 mg Univers 20 mg 2-21 by mouth ity of tablet 17:33: at [place] [address] bedtime. Medical Branch amLODIPine 2022-0 Yes 5mg Take 5 mg Un te[place] 5 mg tablet 2-21 by mouth ity of 17:33: at [place] [address] bedtime. Medical Branch aspirin 81 2022-0 Yes 81mg Take 81 mg U nivers mg EC 2-21 by mouth ity of tablet 17:33: in the [place] [address] morning. Medical Branch lisinopriL 2022-0 Yes 20mg Take 20 mg U nivers 20 mg 2-21 by mouth ity of tablet 17:33: in the [place] [address] morning Medical and 20 mg Branch in the evening. metFORMIN 2022-0 Yes 500mg Take 500 Uni vers 500 mg 2-21 mg by ity of tablet 17:33: mouth in [place] 53 the Medical morning Branch and 500 mg in the evening. Take with meals. pantoprazol 2022-0 Yes 40mg Take 40 mg Univers e 2-21 by mouth ity of (PROTONIX) 17:33: in the [place] 20 mg EC 53 morning. Medical tablet Branch tamsulosin 2022-[address] [facility] ers (FLOMAX) 2-21 mouth ity of 0.4 mg 24 17:33: daily. [place] hr capsule 53 Medical Branch FLUoxetine 2022-0 Yes 20mg Take 20 mg U nivers 20 mg 2-21 by mouth ity of capsule 17:33: in the [place] [address] morning. Medical Branch gabapentin 2023-0 Yes 300mg Take 300 Un teo 300 mg 2-21 mg by ity of capsule 17:33: mouth 2 [place] [address] (two) Medical times Branch daily as needed. memantine 2023-0 Yes 10mg Take 10 mg Un te[place] 10 mg 2-21 by mouth ity of tablet 17:33: in the [place] [address] morning Medical and 10 mg Branch in the evening. simvastatin 2023-0 Yes 20mg Take 20 mg Univers 20 mg 2-21 by mouth ity of tablet 17:33: at [place] [address] bedtime. Medical Branch amLODIPine 2023-0 Yes 5mg Take 5 mg Un teo 5 mg tablet 2-21 by mouth ity of 17:33: at [place] [address] bedtime. Medical Branch aspirin 81 3-0 Yes 81mg Take 81 mg U nivers mg EC 2-21 by mouth ity of tablet 17:33: in the [place] [address] morning. Medical Branch lisinopriL 2022-0 Yes 20mg Take 20 mg U nivers 20 mg 2-21 by mouth ity of tablet 17:33: in the [place] [address] morning Medical and 20 mg Branch in the evening. metFORMIN 3-0 Yes 500mg Take 500 Uni vers 500 mg 2-21 mg by ity of tablet 17:33: mouth in [place] [address] the Medical morning Branch and 500 mg in the evening. Take with meals. pantoprazol 3-0 Yes 40mg Take 40 mg Univers e 2-21 by mouth ity of (PROTONIX) 17:33: in the [place] 20 mg EC 53 morning. Medical tablet Branch tamsulosin 2022-[address] [facility] ers (FLOMAX) 2-21 mouth ity of 0.4 mg 24 17:33: daily. [place] hr [facility] 53 Medical Branch FLUoxetine 3-0 Yes 20mg Take 20 mg U nivers 20 mg 2-21 by mouth ity of capsule 17:33: in the [place] [address] morning. Medical Branch gabapentin 3-0 Yes 300mg Take 300 Un teo 300 mg 2-21 mg by ity of capsule 17:33: mouth 2 [place] [address] (two) Medical times Branch daily as needed. memantine 2023-0 Yes 10mg Take 10 mg Un teo 10 mg 2-21 by mouth ity of tablet 17:33: in the [place] [address] morning Medical and 10 mg Branch in the evening. simvastatin 2022-0 Yes 20mg Take 20 mg Univers 20 mg 2-21 by mouth ity of tablet 17:33: at [place] [address] bedtime. Medical Branch amLODIPine 2022-0 Yes 5mg Take 5 mg Un teo 5 mg tablet 2-21 by mouth ity of 17:33: at [place] [address] bedtime. Medical Branch aspirin 81 2022-0 Yes 81mg Take 81 mg U nivers mg EC 2-21 by mouth ity of tablet 17:33: in the [place] [address] morning. Medical Branch lisinopriL 2022-0 Yes 20mg Take 20 mg U nivers 20 mg 2-21 by mouth ity of tablet 17:33: in the [place] [address] morning Medical and 20 mg Branch in the evening. metFORMIN 2022-0 Yes 500mg Take 500 Uni vers 500 mg 2-21 mg by ity of tablet 17:33: mouth in [place] [address] the Medical morning Branch and 500 mg in the evening. Take with meals. pantoprazol 2022-0 Yes 40mg Take 40 mg Univers e 2-21 by mouth ity of (PROTONIX) 17:33: in the [place] 20 mg EC morning. Medical tablet Branch tamsulosin [address] [facility] ers (FLOMAX) 2-21 mouth ity of 0.4 mg 24 17:33: daily. [place] hr capsule Medical Branch FLUoxetine 2022-0 Yes 20mg Take 20 mg U nivers 20 mg 2-21 by mouth ity of capsule 17:33: in the [place] [address] morning. Medical Branch gabapentin 2022-0 Yes 300mg Take 300 Un teo 300 mg 2-21 mg by ity of capsule 17:33: mouth 2 [place] [address] (two) Medical times Branch daily as needed. memantine 2022-0 Yes 10mg Take 10 mg Un teo 10 mg 2-21 by mouth ity of tablet 17:33: in the [place] [address] morning Medical and 10 mg Branch in the evening. simvastatin 2022-0 Yes 20mg Take 20 mg Univers 20 mg 2-21 by mouth ity of tablet 17:33: at [place] [address] bedtime. Medical Branch levETIRAcet 2022-0 2023- No 250mg Take 250 Univers am (KEPPRA) 2-21 02-21 mg by ity of 250 mg 13:41: 00:00 mouth in [place] tablet 41 :[address] [facility] and 250 mg in the evening. levETIRAcet 2022- No [id number] 500mg Take 1 Univers am 500 mg 11-01 tablet by ity of tablet 00:00: 04:59 mouth in [place] 00 :[address] [facility] and 1 tablet in the evening. Do all this for 90 days. levETIRAcet 2022- No [id number] 500mg Take 1 Univers am 500 mg 11-01 tablet by ity of tablet 00:00: 04:59 mouth in [place] 00 :[address] [facility] and 1 tablet in the evening. Do all this for 90 days. levETIRAcet 2022- No [id number] 500mg Take 1 Univers am 500 mg 11-01 tablet by ity of tablet 00:00: 04:59 mouth in [place] 00 :[address] [facility] and 1 tablet in the evening. Do all this for 90 days. levETIRAcet 2022- No [id number] 500mg Take 1 Univers am 500 mg 11-01 tablet by ity of tablet 00:00: 04:59 mouth in [place] 00 :[address] [facility] and 1 tablet in the evening. Do all this for 90 days. levETIRAcet Yes 500mg 500 mg, Un teo am (KEPPRA) 2-20 Oral, BID, it y of tablet 500 02:00: First dose [place] mg 00 on [facility] 10/30/22 at Branch 1999, Until Discontinu ed, Routine morpHINE ( Yes 2mg 2 mg, Slow Univers mg/mL) 2-17 IV Push, ity of injection 2 02:52: Q4HPRN, [place] mg 02 Starting Medical on [facility] Branch 10/27/22 at 2051, Until Discontinu ed, Routine, Pain (scale 7-10) heparin Yes 5000U 5,000 Univers (porcine) 2-16 Units, ity of injection 20:00: Subcutaneo [place] 5,000 Units 00 us, Q8H, Medi joyce First dose Branch on [facility] 10/27/22 at 1400, Until Discontinu ed, Routine metoprolol 2023-0 Yes 25mg 25 mg, Unive rs tartrate 2-16 Oral, BID, ity o f (LOPRESSOR) 02:00: First dose [place] tablet 25 00 on 10/26/22 at Branch 2000, Until Discontinu ed, Routine metoprolol 2022-2022- No [id number] 25mg Take 1 Univers tartrate 25 2-16 -19 tablet by it y of mg tablet 00:00: 04:59 mouth in [place] as 00 :[address] [facility] and 1 tablet in the evening. Do all this for 30 days. metoprolol 2022-0 2022- No [id number] 25mg Take 1 Univers tartrate 25 2-16 -19 tablet by it y of mg tablet 00:00: 04:59 mouth in [place] as 00 :[address] [facility] and 1 tablet in the evening. Do all this for 30 days. metoprolol 2022-0 2022- No [id number] 25mg Take 1 Univers tartrate 25 -16 -19 tablet by it y of mg tablet 00:00: 04:59 mouth in [place] 00 :[address] [facility] and 1 tablet in the evening. Do all this for 30 days. KCL 2022-2022- No 40meq 40 mEq, Univers (KLOR-CON 10-26- Oral, ity of M20) tablet 05:45: 05:18 ONCE, 1 [place] 40 mEq 00 :00 dose, On [facility] 10/25/22 at 2345, Routine magnesium 2022- [...] dose [place] mg 00 on Mon [facility] 10/25/22 at Branch 2100, Until Discontinu ed, Routine amLODIPine 2022-0 Yes 5mg 5 mg, Univer s (NORVASC) 2-15 Oral, QHS, ity of tablet 5 mg 03:00: First dose [place] 00 on [facility] 10/25/22 at Branch 2100, Until Discontinu ed, Routine phytonadion 2022-0 2022- No 10mg IV Unive rs e (VITAMIN 2-14 10-25 Piggyback, it y of K) 10 mg in 16:45: 18:08 ONCE, 1 [place] NaCl 0.9% 00 :00 dose, On Medica l (NS) [facility] piggyback 10/25/22 at 1045, 50 mL [...] [place] 10 mL 01 Starting Medical on [facility] 10/25/22 at 0949, Until Discontinu ed, Routine, line maintenanc e lidocaine 2022-0 Yes 5mL 5 mL, Univers 1% (PF) -14 Subcutaneo ity of (XYLOCAINE) 15:49: us, PRN, [place] injection 5 01 Starting Medi joyce mL on [facility] 10/25/22 at 0949, Until Discontinu ed, Routine, Local anesthesia tamsulosin 2022-0 Yes .4mg 0.4 mg, Univ ers (FLOMAX) 2-14 Oral, ity of capsule 0.4 15:00: DAILY, [place] mg 00 First dose Medical on [facility] 10/25/22 at 0900, Until Discontinu ed, Routine pantoprazol 2022-0 Yes 40mg 40 mg, Univ ers e 2-14 Oral, ity of (PROTONIX) 15:00: DAILY, [place] EC tablet 00 First dose Medi joyce 40 mg on [facility] 10/25/22 at 0900, Until Discontinu ed, Routine FLUoxetine 2022-0 Yes 20mg 20 mg, Unive rs (PROZAC) 2-14 Oral, ity of capsule 20 15:00: DAILY, [place] mg 00 First dose Medical on [facility] 10/25/22 at 0900, Until Discontinu ed, Routine metFORMIN Yes 500mg 500 mg, Univ ers (GLUCOPHAGE 2-14 Oral, BID ity of ) tablet 14:00: MEALS, [place] 500 mg 00 First dose Medical on [facility] 10/25/22 at 0800, Until Discontinu ed, Routine memantine Yes 10mg 10 mg, Univer s (NAMENDA) 2-14 Oral, BID, ity of tablet 10 14:00: First dose [place] mg 00 on [facility] 10/25/22 at Branch 0800, Until Discontinu ed, Routine
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 medication : JARVIS MILLIGAN lisinopriL Yes 20mg 20 mg, Unive rs (PRINIVIL,Z 2-14 Oral, BID, it y of ESTRIL) 14:00: First dose [place] tablet 20 00 on [facility] mg 10/25/22 at Branch 0800, Until Discontinu ed, Routine gabapentin Yes 200mg 200 mg, Uni vers (NEURONTIN) 2-14 Oral, TID, it y of capsule 200 14:00: First dose [place] mg 00 on [facility] 10/25/22 at Branch 0800, Until Discontinu ed, Routine levETIRAcet 2022- No 500mg 500 mg, IV Univers am (KEPPRA) 10-2520 Piggyback, i ty of in NACL 14:00: 01:39 Q12H, [place] (ISO-OS) 00 :32 First dose Medic al 500 mg/100 on [facility] mL RTU 10/25/22 at 0800, Until Discontinu ed, Administer over 15 Minutes, 100 mL carvediloL 2022- No 6.25mg 6.25 mg, Univers (COREG) 10-25-15 Oral, BID ity of tablet 6.25 14:00: 21:58 MEALS, [place] mg 00 :13 First dose Medical on [facility] 10/25/22 at 0800, Until Discontinu ed, Routine Sliding Yes Subcutaneo Univ ers Scale 2-14 us, AC+HS, ity of Insulin-Reg 13:30: First dose [place] ular + Fsbg 00 on Mon Medica l Testing 10/25/22 at Branch 0730, Until Discontinu ed, Routine iopamidol 0 2022- No [id number] 80mL 80 mL, U nivers (ISOVUE -14 [...] ity of bolus 07:07: PRN - SEE [place] infusion 04 INSTRUCTIO Medic al 250 mL [...] 00 Starting Medical injection 1 on Mon [facility] 10/25/22 at 0107, Until Discontinu ed, [...] IV Push, ity of (PF)) 06:56: Q6HPRN, [place] injection 4 23 Starting Medi joyce mg on [facility] 10/25/22 at 0056, Until Discontinu ed, Routine, Nausea and Vomiting (N/V) acetaminoph 2022-0 Yes 650mg 650 mg, Un teo en 10-25 Oral, ity of (TYLENOL) 06:55: Q6HPRN, [place] tablet 650 49 Starting Medic al mg on [facility] 10/25/22 at 0055, Until Discontinu ed, Routine, Pain (scale 1-3) cefTRIAXone 2022-0 2023- No 1000mg 1,000 mg, Univers (ROCEPHIN) 10-25 IV ity of 1,000 mg in 01:00: 01:42 [place], [place] NaCl 0.9% 00 :00 ONCE, 1 Medical (NS) 50 mL dose, On [facility] MINI-BAG [facility] 10/24/22 at 1900, Administer over 30 Minutes, 50 mL
Reas on for Anti-Infec tive: Documented Infection< br>Documen timur Infection Site: Urine<br&g t;Duration of Therapy: Other (see Comments) LORazepam 2022-0 2022- No 1mg 1 mg, Slow U nivers (ATIVAN) 10-25 IV Push, ity of injection 1 01:00: 01:09 ONCE, 1 [place] mg 00 :00 dose, On [facility] 10/24/22 at 1900, STAT amLODIPine 2022-0 Yes 5mg Take 5 mg Un te[place] 5 mg tablet 10-08 by mouth ity of 13:19: at [place] [address] bedtime. Medical Branch aspirin 81 2022-0 Yes 81mg Take 81 mg U nivers mg EC 10-08 by mouth ity of tablet 13:19: in the [place] [address] morning. Medical Branch lisinopriL 2022-0 Yes 20mg Take 20 mg U nivers 20 mg 10-08 by mouth ity of tablet 13:19: in the [place] [address] morning Medical and 20 mg Branch in the evening. metFORMIN 2022-0 Yes 500mg Take 500 Uni vers 500 mg 1-28 mg by ity of tablet 13:19: mouth in [place] [address] the Medical morning Branch and 500 mg in the evening. Take with meals. pantoprazol 2023-0 Yes 40mg Take 40 mg Univers e 10-08 by mouth ity of (PROTONIX) 13:19: in the [place] 20 mg EC 28 morning. Medical tablet Branch tamsulosin 2022-[address] [facility] ers (FLOMAX) 10-08 mouth ity of 0.4 mg 24 13:19: daily. [place] hr capsule 28 Medical Branch FLUoxetine 2022-0 Yes 20mg Take 20 mg U nivers 20 mg 10-08 by mouth ity of capsule 13:19: in the [place] [address] morning. Medical Branch gabapentin 2022-0 Yes 300mg Take 300 Un teo 300 mg - mg by ity of capsule 13:19: mouth 2 [place] [address] (two) Medical times Branch daily as needed. levETIRAcet 2022-0 Yes 250mg Take 250 U nivers am (KEPPRA) 10-08 mg by ity of 250 mg 13:19: mouth in [place] tablet 28 the Medical morning Branch and 250 mg in the evening. memantine 2022-0 Yes 10mg Take 10 mg Un teo 10 mg 10-08 by mouth ity of tablet 13:19: in the [place] [address] morning Medical and 10 mg Branch in the evening. simvastatin 2022-0 Yes 20mg Take 20 mg Univers 20 mg 10-08 by mouth ity of tablet 13:19: at [place] [address] bedtime. Medical Branch amLODIPine 2022-0 Yes 5mg Take 5 mg Un teo 5 mg tablet 10-08 by mouth ity of 13:19: at [place] [address] bedtime. Medical Branch aspirin 81 2022-0 Yes 81mg Take 81 mg U nivers mg EC 10-08 by mouth ity of tablet 13:19: in the [place] [address] morning. Medical Branch lisinopriL 2022-0 Yes 20mg Take 20 mg U nivers 20 mg 10-08 by mouth ity of tablet 13:19: in the [place] [address] morning Medical and 20 mg Branch in the evening. metFORMIN 3-0 Yes 500mg Take 500 Uni vers 500 mg - mg by ity of tablet 13:19: mouth in [place] [address] the Medical morning Branch and 500 mg in the evening. Take with meals. pantoprazol 3-0 Yes 40mg Take 40 mg Univers e 10-08 by mouth ity of (PROTONIX) 13:19: in the [place] 20 mg EC 28 morning. Medical tablet Branch tamsulosin 2022-[address] [facility] ers (FLOMAX) 10-08 mouth ity of 0.4 mg 24 13:19: daily. [place] hr capsule Medical Branch FLUoxetine 2022-0 Yes 20mg Take 20 mg U nivers 20 mg 10-08 by mouth ity of capsule 13:19: in the [place] [address] morning. Medical Branch gabapentin 2022-0 Yes 300mg Take 300 Un teo 300 mg - mg by ity of capsule 13:19: mouth 2 (two) Medical times Branch daily as needed. levETIRAcet 2022-0 Yes 250mg Take 250 U nivers am (KEPPRA) 10-08 mg by ity of 250 mg 13:19: mouth in [place] tablet 28 the Medical morning Branch and 250 mg in the evening. memantine 2022-0 Yes 10mg Take 10 mg [place] 10 mg 10-08 by mouth ity of tablet 13:19: in the [place] morning Medical and 10 mg Branch in the evening. simvastatin 2022-0 Yes 20mg Take 20 mg Univers 20 mg 10-08 by mouth ity of tablet 13:19: at [place] [address] bedtime. Medical Branch amLODIPine 2022-0 Yes 5mg Take 5 mg [place] 5 mg tablet 10-08 by mouth ity of 13:19: at [place] [address] bedtime. Medical Branch aspirin 81 2022-0 Yes 81mg Take 81 mg U nivers mg EC 10-08 by mouth ity of tablet 13:19: in the [place] [address] morning. Medical Branch lisinopriL 2022-0 Yes 20mg Take 20 mg U nivers 20 mg 10-08 by mouth ity of tablet 13:19: in the [place] morning Medical and 20 mg Branch in the evening. metFORMIN 2022-0 Yes 500mg Take 500 Uni vers 500 mg - mg by ity of tablet 13:19: mouth in 28 the Medical morning Branch and 500 mg in the evening. Take with meals. pantoprazol 2022-0 Yes 40mg Take 40 mg Univers e 10-08 by mouth ity of (PROTONIX) 13:19: in the [place] 20 mg EC 28 morning. Medical tablet Branch tamsulosin 2022-[address] [facility] ers (FLOMAX) 10-08 mouth ity of 0.4 mg 24 13:19: daily. [place] hr capsule 28 Medical Branch FLUoxetine 2023-0 Yes 20mg Take 20 mg U nivers 20 mg 10-08 by mouth ity of capsule 13:19: in the [place] [address] morning. Medical Branch gabapentin 0 Yes 300mg Take 300 Un teo 300 mg - mg by ity of capsule 13:19: mouth 2 [place] [address] (two) Medical times Branch daily as needed. levETIRAcet 0 Yes 250mg Take 250 U nivers am (KEPPRA) - mg by ity of 250 mg 13:19: mouth in [facility] 28 the Medical morning Branch and 250 mg in the evening. memantine 0 Yes 10mg Take 10 mg [place] te[place] 10 mg 10-08 by mouth ity of tablet 13:19: in the [place] morning Medical and 10 mg Branch in the evening. simvastatin 0 Yes 20mg Take 20 mg Univers 20 mg 10-08 by mouth ity of tablet 13:19: at [place] [address] bedtime. Medical Branch Sliding Yes Subcutaneo Univ [...] 03:45: First dose [place] 00 on Mon [facility] 10/07/22 at Branch 2145, Until Discontinu ed, [...] First dose [place] 00 :30 on Mon [facility] 10/07/22 at Branch 2145, Until Discontinu ed, Routine dextrose 2023-0 Yes 250mL 250 mL, IV Un te[place] 10% (D10W) 10-08 Infusion, ity of bolus 03:32: PRN - SEE [place] infusion 30 INSTRUCTIO Medic al 250 mL [...] of bolus 03:32: 21:19 PRN - SEE [place] infusion 30 :30 INSTRUCTIO Medic al 250 [...] Until Discontinu ed, Routine hydralAZINE 2022- No [id number] 10mg 10 mg, Univers (APRESOLINE 10-07 Slow IV ity of ) injection 12:15: 11:26 [place] 10 mg 00 :00 ONCE, 1 Medical dose, On Branch Mon10/07/22 at 0615, STAT hydralAZINE 2022- No [id number] 10mg 10 mg, Univers (APRESOLINE 10-07 Slow IV ity of ) injection 12:15: 11:26 [place] 10 mg 00 :00 ONCE, 1 Medical dose, On Branch Mon10/07/22 at 0615, STAT simvastatin Yes 20mg 20 mg, Univ ers (ZOCOR) 10-07 Oral, QHS, ity of tablet 20 03:00: First dose [place] mg 00 on [facility] 10/06/22 at [place] 2100, Until Discontinu ed, Routine amLODIPine Yes 5mg 5 mg, Univer s (NORVASC) 10-07 Oral, QHS, ity of tablet 5 mg 03:00: First dose [place] 00 on [facility] 10/06/22 at [place] 2100, Until Discontinu ed, Routine simvastatin 2022- No 20mg 20 mg, Uni vers (ZOCOR) 10-07 Oral, QHS, ity o f tablet 20 03:00: 21:19 First dose [place] mg 00 :30 on [facility] 10/06/22 at [place] 2099, Until Discontinu ed, Routine amLODIPine 2022- No 5mg 5 mg, Unive rs (NORVAS) 10-07 Oral, QHS, ity of tablet 5 mg 03:00: 21:19 First dose [place] 00 :30 on [facility] 10/06/22 at [place] 2099, Until Discontinu ed, Routine levETIRAcet Yes 250mg 250 mg, Un te[place] am (KEPPRA) 10-07 Oral, BID, it y of tablet 250 02:00: First dose [place] mg 00 on [facility] 10/06/22 at [place] 1999, Until Discontinu ed, Routine levETIRAcet 2022- No 250mg 250 mg, U nivers am (KEPPRA) 10-07 Oral, BID, i ty of tablet 250 02:00: 21:19 First dose [place] mg 00 :30 on [facility] 10/06/22 at [place] 2000, Until Discontinu ed, Routine carvediloL 2022- No [id number] 6.25mg Take 1 Univers 6.25 mg 10-07 tablet by ity of tablet 00:00: 05:59 mouth in [place] 00 :00 the Medical morning Branch and 1 tablet in the evening. Take with meals. Do all this for 30 days. carvediloL 2022- No [id number] 6.25mg Take 1 Univers 6.25 mg 1-27 02-27 tablet by ity of tablet 00:00: 05:59 mouth in [place] 00 :00 the Medical morning Branch and 1 tablet in the evening. Take with meals. Do all this for 30 days. carvediloL 2022-0 2022- No [id number] 6.25mg Take 1 Univers 6.25 mg 1-27 -27 tablet by ity of tablet 00:00: 05:59 mouth in [place] 00 :00 the Medical morning Branch and 1 tablet in the evening. Take with meals. Do all this for 30 days. carvediloL 2022-0 2022- No [id number] 6.25mg Take 1 Univers 6.25 mg -27 02-16 tablet by ity of tablet 00:00: 00:00 mouth in [place] 00 :00 the Medical morning Branch and 1 tablet in the evening. Take with meals. Do all this for 30 days. lactated 2022-0 2022- No 500mL at 200 Unive rs ringers IV 10-06 mL/hr, 500 it y of infusion 20:15: 13:51 mL, [place] 500 mL 00 :00 Intravenou Medical s, ONCE, 1 Branch dose, On [place] 10/06/22 at 1415, Routine lactated 2022-0 2022- No 500mL at 200 Unive rs ringers IV 10-06 mL/hr, 500 it y of infusion 20:15: 13:51 mL, [place] 500 mL 00 :00 Intravenou Medical s, ONCE, 1 Branch dose, On [place] 10/06/22 at 1415, Routine hydralAZINE 2022-0 2022- No 10mg 10 mg, Uni vers (APRESOLINE 10-06 Slow IV ity of ) injection 20:00: 19:15 [place] 10 mg 00 :00 ONCE, 1 Medical dose, On Branch [facility] 10/06/22 at 1400, STAT hydralAZINE 2022-0 2022- No 10mg 10 mg, Uni vers (APRESOLINE 10-06 Slow IV ity of ) injection 20:00: 19:15 [place] 10 mg 00 :00 ONCE, 1 Medical dose, On Branch [facility] 10/06/22 at 1400, STAT carvediloL 2022- [...] Medical mg last Branch modificati on) on [facility] 10/06/22 at 1145, Until Discontinu ed, Routine lisinopriL 2022-0 2022- No 20mg 20 mg, Univ ers (PRINIVIL,Z 10-06 Oral, BID, i ty of ESTRIL) 17:45: 21:19 First dose [place] tablet 20 00 :30 (after Medical mg last Branch modificati on) on [facility] 10/06/22 at 1145, Until Discontinu ed, Routine acetaminoph 2022-0 Yes 650mg 650 mg, Un teo en 10-06 Oral, ity of (TYLENOL) 17:33: Q6HPRN, [place] tablet 650 13 Starting Medic al mg on [facility] Branch 10/06/22 at 1133, Until Discontinu ed, Routine, Pain (scale 1-3) acetaminoph 2022-0 2022- No 650mg 650 mg, U nivers en 10-06 Oral, ity of (TYLENOL) 17:33: 21:19 Q6HPRN, [place] tablet 650 13 :30 Starting Medic al mg on [facility] Branch 10/06/22 at 1133, Until 10/08/22 [...] Pain (scale 4-6) hydralAZINE 2022-0 2022- No [id number] 10mg 10 mg, Univers (APRESOLINE 10-06 Slow IV ity of ) injection 17:30: 16:31 [place] 10 mg 00 :00 ONCE, 1 Medical dose, On Branch [facility] 10/06/22 at 1130, STAT hydralAZINE 2022-0 2022- No [id number] 10mg 10 mg, Univers (APRESOLINE 10-06 Slow IV ity of ) injection 17:30: 16:31 [place] 10 mg 00 :00 ONCE, 1 Medical dose, On Branch [facility] 10/06/22 at 1130, STAT lidocaine 2022- No ONCE INTRA U nivers 1% (PF) 10-06 PROCEDURE, ity o f (XYLOCAINE) 14:22: 15:52 Starting [place] injection 52 :21 on [facility] 10/06/22 at Branch 0822, Until [facility] 10/06/22 at 0952, Routine, CV Intraproce dure iodixanol 2022- No ONCE INTRA U nivers (VISIPAQUE 10-06 PROCEDURE, it y of 320-100 mL) 14:03: 15:52 Starting [place] injection 41 :21 on [facility] Medical 10/06/22 at Branch 0803, Until [place] 10/06/22 at 0952, Routine, CV Intraproce dure hydralAZINE 2022-0 2022- No [id number] 10mg Inject 0.5 Univers 20 mg/mL 10-06 mL ity of injection 00:00: 00:00 intravenou [place] 00 :00 sly once Medical now for 1 Branch dose. hydralAZINE 2022- No [id number] 10mg Inject 0.5 Univers 20 mg/mL 10-06 01-27 mL ity of injection 00:00: 00:00 intravenou [place] 00 :00 sly once Medical now for 1 Branch dose. amitriptyli 2021-09- No [id number] 25mg Take 1 Univers ne 25 mg 0-23 10-31 tablet by ity o f tablet 00:00: 04:59 mouth at [place] 00 :00 bedtime Medical for 7 Branch days. amitriptyli 2021-09- No [id number] 25mg Take 1 Univers ne 25 mg 0-23 10-31 tablet by ity o f tablet 00:00: 04:59 mouth at [place] 00 :00 bedtime Medical for 7 Branch days. amitriptyli 2021-09- No [id number] 25mg Take 1 Univers ne 25 mg 0-23 10-31 tablet by ity o f tablet 00:00: 04:59 mouth at [place] 00 :00 bedtime Medical for 7 Branch days. amitriptyli 2021-09- No [id number] 25mg Take 1 Univers ne 25 mg 0-23 10-31 tablet by ity o f tablet 00:00: 04:59 mouth at [place] 00 :00 bedtime Medical for 7 Branch days. tamsulosin 2021-09 Yes .4mg 0.4 mg, Univ ers (FLOMAX) 0-16 Oral, QHS, ity o f capsule 0.4 02:00: First dose [place] mg 00 on [facility] 06/25/22 Branch at 2100, Until Discontinu ed, Routine amLODIPine 2021-09 Yes 5mg 5 mg, Univer s (NORVASC) 0-16 Oral, QHS, ity of tablet 5 mg 02:00: First dose [place] 00 on [facility] 06/25/22 Branch at 2100, Until Discontinu ed, Routine tamsulosin 2021-09- No .4mg 0.4 mg, Uni vers (FLOMAX) 0-16 10-15 Oral, QHS, ity of capsule 0.4 02:00: 21:09 First dose [place] mg 00 :41 on [facility] 06/25/22 Branch at 2100, Until Discontinu ed, Routine amLODIPine 2021-09 No 5mg 5 mg, Unive rs (NORVASC) 0-16 10-15 Oral, QHS, ity of tablet 5 mg 02:00: 21:09 First dose [place] 00 :41 on Sat Medical 06/25/22 Branch at 2100, Until Discontinu ed, Routine pantoprazol 2021-09- No [id number] 40mg Take 1 Univers e 0-16 01-15 tablet by ity of (PROTONIX) 00:00: 05:59 mouth in [place] 40 mg EC 00 :00 the Medical tablet morning Branch for 90 days. vitamin 2021-09- No [id number] 1000ug Take 1 U nivers B-12 1,000 0-16 01-15 tablet by ity of mcg tablet 00:00: 05:59 mouth in [place] 00 :00 the Medical morning Branch for 90 days. pantoprazol 2021-09- No [id number] 40mg Take 1 Univers e 0-16 01-15 tablet by ity of (PROTONIX) 00:00: 05:59 mouth in [place] 40 mg EC 00 :00 the Medical tablet morning Branch for 90 days. vitamin 2021-09- No [id number] 1000ug Take 1 U nivers B-12 1,000 0-16 01-15 tablet by ity of mcg tablet 00:00: 05:59 mouth in [place] 00 :00 the Medical morning Branch for 90 days. pantoprazol 2021-09- No [id number] 40mg Take 1 Univers e 0-16 01-15 tablet by ity of (PROTONIX) 00:00: 05:59 mouth in [place] 40 mg EC 00 :00 the Medical tablet morning Branch for 90 days. vitamin 2021-09- No [id number] 1000ug Take 1 U nivers B-12 1,000 0-16 01-15 tablet by ity of mcg tablet 00:00: 05:59 mouth in [place] 00 :00 the Medical morning Branch for 90 days. pantoprazol 2021-09- No [id number] 40mg Take 1 Univers e 0-16 01-15 tablet by ity of (PROTONIX) 00:00: 05:59 mouth in [place] 40 mg EC 00 :00 the Medical tablet morning Branch for 90 days. vitamin 2021-09- No [id number] 1000ug Take 1 U nivers B-12 1,000 0-16 01-15 tablet by ity of mcg tablet 00:00: 05:59 mouth in [place] 00 :00 the Medical morning Branch for 90 days. pantoprazol 2021-09- No [id number] 40mg Take 1 Univers e 0-16 01-15 tablet by ity of (PROTONIX) 00:00: 05:59 mouth in [place] 40 mg EC 00 :00 the Medical tablet morning Branch for 90 days. vitamin 2021-09- No [id number] 1000ug Take 1 U nivers B-12 1,000 0-16 01-15 tablet by ity of mcg tablet 00:00: 05:59 mouth in [place] 00 :00 the Medical morning Branch for 90 days. pantoprazol 2021-09- No [id number] 40mg Take 1 Univers e 0-16 01-15 tablet by ity of (PROTONIX) 00:00: 05:59 mouth in [place] 40 mg EC 00 :00 the Medical tablet morning Branch for 90 days. vitamin 2021-09- No [id number] 1000ug Take 1 U nivers B-12 1,000 0-16 01-15 tablet by ity of mcg tablet 00:00: 05:59 mouth in [place] 00 :00 the Medical morning Branch for 90 days. pantoprazol 2021-09- No [id number] 40mg Take 1 Univers e 0-16 01-15 tablet by ity of (PROTONIX) 00:00: 05:59 mouth in [place] 40 mg EC 00 :00 the Medical tablet morning Branch for 90 days. vitamin 2021-09- No [id number] 1000ug Take 1 U nivers B-12 1,000 0-16 01-15 tablet by ity of mcg tablet 00:00: 05:59 mouth in [place] 00 :00 the Medical morning Branch for 90 days. pantoprazol 2021-09- No [id number] 40mg Take 1 Univers e 0-16 01-15 tablet by ity of (PROTONIX) 00:00: 05:59 mouth in [place] 40 mg EC 00 :00 the Medical tablet morning Branch for 90 days. vitamin 2021-09- No [id number] 1000ug Take 1 U nivers B-12 1,000 0-16 01-15 tablet by ity of mcg tablet 00:00: 05:59 mouth in [place] 00 :00 the Medical morning Branch for 90 days. pantoprazol 2021-09- No [id number] 40mg Take 1 Univers e 0-16 01-15 tablet by ity of (PROTONIX) 00:00: 05:59 mouth in [place] 40 mg EC 00 :00 the Medical tablet morning Branch for 90 days. vitamin 2021-09- No [id number] 1000ug Take 1 U nivers B-12 1,000 0-16 01-15 tablet by ity of mcg tablet 00:00: 05:59 mouth in [place] 00 :00 the Medical morning Branch for 90 days. pantoprazol 2021-09- No [id number] 40mg Take 1 Univers e 0-16 01-15 tablet by ity of (PROTONIX) 00:00: 05:59 mouth in [place] 40 mg EC 00 :00 the Medical tablet morning Branch for 90 days. vitamin 2021-09- No [id number] 1000ug Take 1 U nivers B-12 1,000 0-16 01-15 tablet by ity of mcg tablet 00:00: 05:59 mouth in [place] 00 :00 the Medical morning Branch for 90 days. pantoprazol 2021-09- No [id number] 40mg Take 1 Univers e 0-16 01-15 tablet by ity of (PROTONIX) 00:00: 05:59 mouth in [place] 40 mg EC 00 :00 the Medical tablet morning Branch for 90 days. vitamin 2021-09- No [id number] 1000ug Take 1 U nivers B-12 1,000 0-16 01-15 tablet by ity of mcg tablet 00:00: 05:59 mouth in [place] 00 :00 the Medical morning Branch for 90 days. pantoprazol 2021-09- No [id number] 40mg Take 1 Univers e 0-16 01-15 tablet by ity of (PROTONIX) 00:00: 05:59 mouth in [place] 40 mg EC 00 :00 the Medical tablet morning Branch for 90 days. vitamin 2021-09- No [id number] 1000ug Take 1 U nivers B-12 1,000 0-16 01-15 tablet by ity of mcg tablet 00:00: 05:59 mouth in [place] 00 :[address] [facility] Branch for 90 days. vitamin 2021-09 Yes 1000ug 1,000 mcg, Un teo B-12 0-15 Oral, ity of (CYANOCOBAL 14:00: DAILY, [place] CODY) 00 First dose Medical tablet (after Branch 1,000 mcg last modificati on) on [place] 06/25/22 at 0900, Until Discontinu ed, Routine magnesium 2021-09 No 2g 2 g, IV Univ ers sulfate in 0-15 10-15 Piggyback, it y of water 2 14:00: 14:38 Administer [place] as gram/50 mL 00 :00 over 60 Medica l (4 %) Minutes, Branch infusion 2 ONCE, 1 g dose, On [place] 06/25/22 at 0900, Routine vitamin 2021-09 No 1000ug 1,000 mcg, U nivers B-12 0-15 10-15 Oral, ity of (CYANOCOBAL 14:00: 21:09 DAILY, [place] as CODY) 00 :41 First dose Medical tablet (after Branch 1,000 mcg last modificati on) on [place] 06/25/22 at 0900, Until Discontinu ed, Routine KCL 2021-09- No 40meq 40 mEq, Univers (KLOR-CON 0-15 10-15 Oral, ity of M20) tablet 13:45: 13:34 ONCE, 1 [place] 40 mEq 00 :00 dose, On Medical [place] [facility] 06/25/22 at 0845, Routine levETIRAcet 2021-09 Yes 250mg 250 mg, [place] am (KEPPRA) 0-15 Oral, BID, it y of tablet 250 13:00: First dose [place] mg 00 on [facility] 06/25/22 Branch at 0800, Until Discontinu ed, Routine levETIRAcet 2021-09- No 250mg 250 mg, U nivers am (KEPPRA) 0-15 10-15 Oral, BID, i ty of tablet 250 13:00: 21:09 First dose [place] mg 00 :41 on [facility] 06/25/22 Branch at 0800, Until Discontinu ed, Routine PEPCID 2021-09- No prn Univers MG ORAL TAB 0-15 10-15 ity of 12:45: 00:00 [place] 24 :00 Medical Branch B COMPLEX 1 2021-09- No None Unive rs ORAL TAB 0-15 10-15 Entered ity of 12:45: 00:00 [place] 24 :00 Medical Branch M-VIT ORAL 2021-09- No None Univer s 0-15 10-15 Entered ity of 12:45: 00:00 [place] 24 :00 Medical Branch PEPCID 20 2021-09- No prn Univers MG ORAL TAB 0-15 10-15 ity of 12:45: 00:00 [place] 24 :00 Medical Branch B COMPLEX 1 2021-09- No None Unive rs ORAL TAB 0-15 10-15 Entered ity of 12:45: 00:00 [place] 24 :00 Medical Branch M-VIT ORAL 2021-09- No None Univer s 0-15 10-15 Entered ity of 12:45: 00:00 [place] 24 :00 Medical Branch metFORMIN 2021-09- No [id number] 500mg Take 1 Univers 500 mg 09-24 tablet by ity of tablet 00:00: 05:59 mouth in [place] 00 :00 the Medical morning Branch and 1 tablet in the evening. Take with meals. Do all this for 90 days. tamsulosin 2021-09- No [id number] .4mg Take 1 Univers 0.4 mg 24 09-24 capsule by ity of hr capsule 00:00: 05:59 mouth at [facility] 00 :00 bedtime Medical for 90 Branch days. amLODIPine 2021-09- No [id number] 5mg Take 1 Univers 5 mg tablet 09-24 tablet by it y of 00:00: 05:59 mouth at [place] 00 :00 bedtime Medical for 90 Branch days. levETIRAcet 2021-09- No [id number] 250mg Take 1 Univers am 250 mg 0-14 tablet by ity of tablet 00:00: 05:59 mouth in [place] 00 :00 the Medical morning Branch and 1 tablet in the evening. Do all this for 90 days. lisinopriL 2021-09- No [id number] 20mg Take 1 Univers 20 mg 0-15 -14 tablet by ity of tablet 00:00: 05:59 mouth in [place] 00 :00 the Medical morning Branch and 1 tablet in the evening. Do all this for 90 days. FLUoxetine 2021-09- No [id number] 20mg Take 1 Univers 20 mg 0-15 -14 capsule by ity of capsule 00:00: 05:59 mouth in [place] 00 :00 the [facility] Branch for 90 days. memantine 2021-09- No [id number] 10mg Take 1 U nivers 10 mg 0-15 -14 tablet by ity of tablet 00:00: 05:59 mouth in [place] 00 :00 the [facility] morning Branch and 1 tablet in the evening. Do all this for 90 days. pyridostigm 2021-09- No [id number] 60mg Take 1 Univers ine 60 mg 0-15 -14 tablet by ity of tablet 00:00: 05:59 mouth as [place] 00 :00 needed for Medical Other Branch (HYPOTENSI ON) for up to 90 days. simvastatin 2021-09- No [id number] 20mg Take 1 Univers 20 mg 0-15 -14 tablet by ity of tablet 00:00: 05:59 mouth at [place] 00 :00 bedtime Medical for 90 Branch days. aspirin 81 2021-09- No [id number] 81mg Take 1 Univers mg chewable 0-15 -14 tablet by it y of tablet 00:00: 05:59 mouth in [place] 00 :[address] [facility] for 90 days. KCL 20 mEq 2021-09- No [id number] 40meq Take 2 Univers tablet 0-15 -14 tablets by ity of 00:00: 05:59 mouth in [place] 00 :00 the [facility] morning [place] for 90 days. metFORMIN 2021-093- No [id number] 500mg Take 1 Univers 500 mg 0-15 -14 tablet by ity of tablet 00:00: 05:59 mouth in [place] 00 :00 the Medical morning Branch and 1 tablet in the evening. Take with meals. Do all this for 90 days. tamsulosin 2021-09- No [id number] .4mg Take 1 Univers 0.4 mg 24 0-15 -14 capsule by ity of hr capsule 00:00: 05:59 mouth at [place] 00 :00 bedtime Medical for 90 Branch days. amLODIPine 2021-09- No [id number] 5mg Take 1 Univers 5 mg tablet 0-14 tablet by it y of 00:00: 05:59 mouth at [place] 00 :00 bedtime Medical for 90 Branch days. levETIRAcet 2021-09- No [id number] 250mg Take 1 Univers am 250 mg 009-24 tablet by ity of tablet 00:00: 05:59 mouth in [place] 00 :00 the Medical morning Branch and 1 tablet in the evening. Do all this for 90 days. lisinopriL 2021-09- No [id number] 20mg Take 1 Univers 20 mg 0-15 - tablet by ity of tablet 00:00: 05:59 mouth in [place] 00 :00 the Medical morning Branch and 1 tablet in the evening. Do all this for 90 days. FLUoxetine 2021-09- No [id number] 20mg Take 1 Univers 20 mg 0-15 - capsule by ity of capsule 00:00: 05:59 mouth in [place] 00 :00 the Medical morning Branch for 90 days. memantine 2021-09- No [id number] 10mg Take 1 U nivers 10 mg 009-24 tablet by ity of tablet 00:00: 05:59 mouth in [place] 00 :00 the Medical morning Branch and 1 tablet in the evening. Do all this for 90 days. pyridostigm 2021-09- No [id number] 60mg Take 1 Univers ine 60 mg 0-09-24 tablet by ity of tablet 00:00: 05:59 mouth as [place] 00 :00 needed for Medical Other Branch (HYPOTENSI ON) for up to 90 days. simvastatin 2021-09- No [id number] 20mg Take 1 Univers 20 mg 0-15 -14 tablet by ity of tablet 00:00: 05:59 mouth at [place] 00 :00 bedtime Medical for 90 Branch days. aspirin 81 2021-09- No [id number] 81mg Take 1 Univers mg chewable 0-15 - tablet by it y of tablet 00:00: 05:59 mouth in [place] 00 :00 the Medical morning Branch for 90 days. KCL 20 mEq 2021-09- No [id number] 40meq Take 2 Univers tablet 0- tablets by ity of 00:00: 05:59 mouth in [place] 00 :[address] [facility] for 90 days. metFORMIN 2021-09- No [id number] 500mg Take 1 Univers 500 mg 015 -14 tablet by ity of tablet 00:00: 05:59 mouth in [place] 00 :[address] [facility] and 1 tablet in the evening. Take with meals. Do all this for 90 days. tamsulosin 2021-09- No [id number] .4mg Take 1 Univers 0.4 mg 24 009-24 capsule by ity of hr capsule 00:00: 05:59 mouth at [facility] 00 :00 bedtime [facility] for 90 Branch days. amLODIPine 2021-09- No [id number] 5mg Take 1 Univers 5 mg tablet 009-24 tablet by it y of 00:00: 05:59 mouth at [place] 00 :00 bedtime [facility] for 90 Branch days. levETIRAcet 2021-09- No [id number] 250mg Take 1 Univers am 250 mg 0- tablet by ity of tablet 00:00: 05:59 mouth in [place] 00 :[address] [facility] and 1 tablet in the evening. Do all this for 90 days. lisinopriL 2021-09- No [id number] 20mg Take 1 Univers 20 mg 0- tablet by ity of tablet 00:00: 05:59 mouth in [place] 00 :[address] [facility] and 1 tablet in the evening. Do all this for 90 days. FLUoxetine 2021-09- No [id number] 20mg Take 1 Univers 20 mg 0-14 capsule by ity of capsule 00:00: 05:59 mouth in [place] 00 :[address] [facility] for 90 days. memantine 2021-09- No [id number] 10mg Take 1 U nivers 10 mg 015 -14 tablet by ity of tablet 00:00: 05:59 mouth in [place] 00 :[address] [facility] and 1 tablet in the evening. Do all this for 90 days. pyridostigm 2021-09- No [id number] 60mg Take 1 Univers ine 60 mg 0-15 -14 tablet by ity of tablet 00:00: 05:59 mouth as [place] 00 :00 needed for Medical Other Branch (HYPOTENSI ON) for up to 90 days. simvastatin 2021-09- No [id number] 20mg Take 1 Univers 20 mg 0-15 -14 tablet by ity of tablet 00:00: 05:59 mouth at [place] 00 :00 bedtime Medical for 90 Branch days. aspirin 81 2021-09- No [id number] 81mg Take 1 Univers mg chewable 0-15 -14 tablet by it y of tablet 00:00: 05:59 mouth in [place] 00 :00 the Medical morning Branch for 90 days. metFORMIN 2021-09- No [id number] 500mg Take 1 Univers 500 mg 0-15 -14 tablet by ity of tablet 00:00: 05:59 mouth in [place] 00 :00 the Medical morning Branch and 1 tablet in the evening. Take with meals. Do all this for 90 days. tamsulosin 2021-09- No [id number] .4mg Take 1 Univers 0.4 mg 24 0-25 09- capsule by ity of hr capsule 00:00: 05:59 mouth at [facility] 00 :00 bedtime Medical for 90 Branch days. amLODIPine 2021-09- No [id number] 5mg Take 1 Univers 5 mg tablet 009-24 tablet by it y of 00:00: 05:59 mouth at [place] 00 :00 bedtime Medical for 90 Branch days. levETIRAcet 2021-09- No [id number] 250mg Take 1 Univers am 250 mg 0-25 09- tablet by ity of tablet 00:00: 05:59 mouth in [place] 00 :00 the Medical morning Branch and 1 tablet in the evening. Do all this for 90 days. lisinopriL 2021-09- No [id number] 20mg Take 1 Univers 20 mg 0-15 -14 tablet by ity of tablet 00:00: 05:59 mouth in [place] 00 :00 the Medical morning Branch and 1 tablet in the evening. Do all this for 90 days. FLUoxetine 2021-09- No [id number] 20mg Take 1 Univers 20 mg 0-15 -14 capsule by ity of capsule 00:00: 05:59 mouth in [place] 00 :00 the Medical morning Branch for 90 days. memantine 2021-09- No [id number] 10mg Take 1 U nivers 10 mg 009-24 tablet by ity of tablet 00:00: 05:59 mouth in [place] 00 :00 the Medical morning Branch and 1 tablet in the evening. Do all this for 90 days. pyridostigm 2021-09- No [id number] 60mg Take 1 Univers ine 60 mg 009-24 tablet by ity of tablet 00:00: 05:59 mouth as [place] 00 :00 needed for Medical Other Branch (HYPOTENSI ON) for up to 90 days. simvastatin 2021-09- No [id number] 20mg Take 1 [facility] 20 mg 009-24 tablet by ity of tablet 00:00: 05:59 mouth at [place] 00 :00 bedtime Medical for 90 Branch days. aspirin 81 2021-09- No [id number] 81mg Take 1 [facility] mg chewable 09-24 tablet by it y of tablet 00:00: 05:59 mouth in [place] 00 :00 the [facility] morning [place] for 90 days. KCL 20 mEq 2021-09- No [id number] 40meq Take 2 Univers tablet 09-24 tablets by ity of 00:00: 05:59 mouth in [place] 00 :00 the [facility] morning [place] for 90 days. metFORMIN 2021-09- No [id number] 500mg Take 1 [facility] 500 mg 009-24 tablet by ity of tablet 00:00: 05:59 mouth in [place] 00 :00 the Medical morning Branch and 1 tablet in the evening. Take with meals. Do all this for 90 days. tamsulosin 2021-09- No [id number] .4mg Take 1 [facility] 0.4 mg 24 09-24 capsule by ity of hr capsule 00:00: 05:59 mouth at [facility] 00 :00 bedtime Medical for 90 Branch days. amLODIPine 2021-09- No [id number] 5mg Take 1 [facility] 5 mg tablet 09-24 tablet by it y of 00:00: 05:59 mouth at [place] 00 :00 bedtime Medical for 90 Branch days. levETIRAcet 2021-09- No [id number] 250mg Take 1 [facility] am 250 mg 0-15 -14 tablet by ity of tablet 00:00: 05:59 mouth in [place] 00 :00 the Medical morning Branch and 1 tablet in the evening. Do all this for 90 days. lisinopriL 2021-09- No [id number] 20mg Take 1 [facility] 20 mg 0-15 -14 tablet by ity of tablet 00:00: 05:59 mouth in [place] 00 :00 the Medical morning Branch and 1 tablet in the evening. Do all this for 90 days. FLUoxetine 2021-09- No [id number] 20mg Take 1 [facility] 20 mg 0-15 -14 capsule by ity of capsule 00:00: 05:59 mouth in [place] 00 :00 the [facility] morning Branch for 90 days. memantine 2021-09- No [id number] 10mg Take 1 U nivers 10 mg 0-15 -14 tablet by ity of tablet 00:00: 05:59 mouth in [place] 00 :00 the [facility] morning Branch and 1 tablet in the evening. Do all this for 90 days. pyridostigm 2021-09- No [id number] 60mg Take 1 Univers ine 60 mg 0-15 -14 tablet by ity of tablet 00:00: 05:59 mouth as [place] 00 :00 needed for Medical Other Branch (HYPOTENSI ON) for up to 90 days. simvastatin 2021-09- No [id number] 20mg Take 1 [facility] 20 mg 0-15 -14 tablet by ity of tablet 00:00: 05:59 mouth at [place] 00 :00 bedtime Medical for 90 Branch days. aspirin 81 2021-09- No [id number] 81mg Take 1 [facility] mg chewable 0-15 -14 tablet by it y of tablet 00:00: 05:59 mouth in [place] 00 :00 the Medical morning Branch for 90 days. KCL 20 mEq 2021-09- No [id number] 40meq Take 2 [facility] tablet 0-15 -14 tablets by ity of 00:00: 05:59 mouth in [place] 00 :00 the Medical morning Branch for 90 days. metFORMIN 2021-09- No [id number] 500mg Take 1 [facility] 500 mg 0-15 -14 tablet by ity of tablet 00:00: 05:59 mouth in [place] 00 :00 the Medical morning Branch and 1 tablet in the evening. Take with meals. Do all this for 90 days. tamsulosin 2021-09- No [id number] .4mg Take 1 [facility] 0.4 mg 24 0-15 -14 capsule by ity of hr capsule 00:00: 05:59 mouth at [place] 00 :00 bedtime Medical for 90 Branch days. amLODIPine 2021-09- No [id number] 5mg Take 1 [facility] 5 mg tablet 0-14 tablet by it y of 00:00: 05:59 mouth at [place] 00 :00 bedtime Medical for 90 Branch days. levETIRAcet 2021-09- No [id number] 250mg Take 1 [facility] am 250 mg 0-14 tablet by ity of tablet 00:00: 05:59 mouth in [place] 00 :00 the Medical morning Branch and 1 tablet in the evening. Do all this for 90 days. lisinopriL 2021-09- No [id number] 20mg Take 1 [facility] 20 mg 0-15 - tablet by ity of tablet 00:00: 05:59 mouth in [place] 00 :00 the Medical morning Branch and 1 tablet in the evening. Do all this for 90 days. FLUoxetine 2021-09- No [id number] 20mg Take 1 [facility] 20 mg 0-15 -14 capsule by ity of capsule 00:00: 05:59 mouth in [place] 00 :00 the Medical morning Branch for 90 days. memantine 2021-09- No [id number] 10mg Take 1 U nivers 10 mg 0-15 -14 tablet by ity of tablet 00:00: 05:59 mouth in [place] 00 :00 the Medical morning Branch and 1 tablet in the evening. Do all this for 90 days. pyridostigm 2021-09- No [id number] 60mg Take 1 [facility] ine 60 mg 0-15 -14 tablet by ity of tablet 00:00: 05:59 mouth as [place] 00 :00 needed for Medical Other Branch (HYPOTENSI ON) for up to 90 days. simvastatin 2021-09- No [id number] 20mg Take 1 [facility] 20 mg 0-15 -14 tablet by ity of tablet 00:00: 05:59 mouth at [place] 00 :00 bedtime Medical for 90 Branch days. aspirin 81 2021-09- No [id number] 81mg Take 1 [facility] mg chewable 0-15 -14 tablet by it y of tablet 00:00: 05:59 mouth in [place] 00 :00 the [facility] morning [place] for 90 days. KCL 20 mEq 2021-09- No [id number] 40meq Take 2 Univers tablet 0-15 -14 tablets by ity of 00:00: 05:59 mouth in [place] 00 :00 the [facility] morning [place] for 90 days. metFORMIN 2021-09- No [id number] 500mg Take 1 [facility] 500 mg 0-15 -14 tablet by ity of tablet 00:00: 05:59 mouth in [place] 00 :00 the Medical morning Branch and 1 tablet in the evening. Take with meals. Do all this for 90 days. tamsulosin 2021-09- No [id number] .4mg Take 1 [facility] 0.4 mg 24 009-24 capsule by ity of hr capsule 00:00: 05:59 mouth at [facility] 00 :00 bedtime [facility] for 90 Branch days. amLODIPine 2021-09- No [id number] 5mg Take 1 [facility] 5 mg tablet 0- tablet by it y of 00:00: 05:59 mouth at [place] 00 :00 [facility] for 90 Branch days. levETIRAcet 2021-09- No [id number] 250mg Take 1 [facility] am 250 mg 0- tablet by ity of tablet 00:00: 05:59 mouth in [place] 00 :00 the [facility] morning Branch and 1 tablet in the evening. Do all this for 90 days. lisinopriL 2021-09- No [id number] 20mg Take 1 [facility] 20 mg 0-15 -14 tablet by ity of tablet 00:00: 05:59 mouth in [place] 00 :00 the Medical morning Branch and 1 tablet in the evening. Do all this for 90 days. FLUoxetine 2021-09- No [id number] 20mg Take 1 [facility] 20 mg 0-15 -14 capsule by ity of capsule 00:00: 05:59 mouth in [place] 00 :00 the [facility] morning [place] for 90 days. memantine 2021-09- No [id number] 10mg Take 1 U nivers 10 mg 0-15 01-14 tablet by ity of tablet 00:00: 05:59 mouth in [place] 00 :00 the Medical morning Branch and 1 tablet in the evening. Do all this for 90 days. pyridostigm 2021-09- No [id number] 60mg Take 1 [facility] ine 60 mg 0-15 -14 tablet by ity of tablet 00:00: 05:59 mouth as [place] 00 :00 needed for Medical Other Branch (HYPOTENSI ON) for up to 90 days. simvastatin 2021-09- No [id number] 20mg Take 1 [facility] 20 mg 0-15 09-24 tablet by ity of tablet 00:00: 05:59 mouth at [place] 00 :00 bedtime Medical for 90 Branch days. aspirin 81 2021-09- No [id number] 81mg Take 1 [facility] mg chewable 009-24 tablet by it y of tablet 00:00: 05:59 mouth in [place] 00 :00 the Medical morning Branch for 90 days. KCL 20 mEq 2021-09- No [id number] 40meq Take 2 [facility] tablet 009-24 tablets by ity of 00:00: 05:59 mouth in [place] 00 :00 the Medical morning Branch for 90 days. metFORMIN 2021-09- No [id number] 500mg Take 1 [facility] 500 mg 009-24 tablet by ity of tablet 00:00: 05:59 mouth in [place] 00 :00 the Medical morning Branch and 1 tablet in the evening. Take with meals. Do all this for 90 days. tamsulosin 2021-09- No [id number] .4mg Take 1 [facility] 0.4 mg 24 09-24 capsule by ity of hr capsule 00:00: 05:59 mouth at [facility] 00 :00 bedtime Medical for 90 Branch days. amLODIPine 2021-09- No [id number] 5mg Take 1 [facility] 5 mg tablet 009-24 tablet by it y of 00:00: 05:59 mouth at [place] 00 :00 bedtime Medical for 90 Branch days. levETIRAcet 2021-09- No [id number] 250mg Take 1 [facility] am 250 mg 009-24 tablet by ity of tablet 00:00: 05:59 mouth in [place] 00 :00 the Medical morning Branch and 1 tablet in the evening. Do all this for 90 days. lisinopriL 2021-09- No [id number] 20mg Take 1 [facility] 20 mg 0-15 -14 tablet by ity of tablet 00:00: 05:59 mouth in [place] 00 :00 the Medical morning Branch and 1 tablet in the evening. Do all this for 90 days. FLUoxetine 2021-09- No [id number] 20mg Take 1 [facility] 20 mg 0-15 -14 capsule by ity of capsule 00:00: 05:59 mouth in [place] 00 :[address] [facility] for 90 days. memantine 2021-09- No [id number] 10mg Take 1 U nivers 10 mg 0-15 -14 tablet by ity of tablet 00:00: 05:59 mouth in [place] 00 :[address] [facility] and 1 tablet in the evening. Do all this for 90 days. pyridostigm 2021-09- No [id number] 60mg Take 1 [facility] ine 60 mg 0-25 09- tablet by ity of tablet 00:00: 05:59 mouth as [place] 00 :00 needed for Medical Other Branch (HYPOTENSI ON) for up to 90 days. simvastatin 2021-09- No [id number] 20mg Take 1 [facility] 20 mg 0-15 -14 tablet by ity of tablet 00:00: 05:59 mouth at [place] 00 :00 bedtime Medical for 90 Branch days. aspirin 81 2021-09- No [id number] 81mg Take 1 [facility] mg chewable 0-25 09-14 tablet by it y of tablet 00:00: 05:59 mouth in [place] 00 :[address] [facility] for 90 days. KCL 20 mEq 2021-09- No [id number] 40meq Take 2 [facility] tablet 015 -14 tablets by ity of 00:00: 05:59 mouth in [place] 00 :00 the [facility] morning [place] for 90 days. metFORMIN 2021-093- No [id number] 500mg Take 1 [facility] 500 mg 0-15 -14 tablet by ity of tablet 00:00: 05:59 mouth in [place] 00 :00 the Medical morning Branch and 1 tablet in the evening. Take with meals. Do all this for 90 days. tamsulosin 2021-09- No [id number] .4mg Take 1 [facility] 0.4 mg 24 0-15 -14 capsule by ity of hr capsule 00:00: 05:59 mouth at [place] 00 :00 bedtime Medical for 90 Branch days. amLODIPine 2021-09- No [id number] 5mg Take 1 [facility] 5 mg tablet 015 -14 tablet by it y of 00:00: 05:59 mouth at [place] 00 :00 bedtime Medical for 90 Branch days. levETIRAcet 2021-09- No [id number] 250mg Take 1 [facility] am 250 mg 0-15 -14 tablet by ity of tablet 00:00: 05:59 mouth in [place] 00 :00 the Medical morning Branch and 1 tablet in the evening. Do all this for 90 days. lisinopriL 2021-09- No [id number] 20mg Take 1 [facility] 20 mg 0-15 -14 tablet by ity of tablet 00:00: 05:59 mouth in [place] 00 :00 the Medical morning Branch and 1 tablet in the evening. Do all this for 90 days. FLUoxetine 2021-09- No [id number] 20mg Take 1 [facility] 20 mg 0-15 -14 capsule by ity of capsule 00:00: 05:59 mouth in [place] 00 :00 the Medical morning Branch for 90 days. memantine 2021-09- No [id number] 10mg Take 1 U nivers 10 mg 0-15 - tablet by ity of tablet 00:00: 05:59 mouth in [place] 00 :00 the Medical morning Branch and 1 tablet in the evening. Do all this for 90 days. pyridostigm 2021-09- No [id number] 60mg Take 1 [facility] ine 60 mg 0-15 -14 tablet by ity of tablet 00:00: 05:59 mouth as [place] 00 :00 needed for Medical Other Branch (HYPOTENSI ON) for up to 90 days. simvastatin 2021-09- No [id number] 20mg Take 1 [facility] 20 mg 0-15 -14 tablet by ity of tablet 00:00: 05:59 mouth at [place] 00 :00 bedtime Medical for 90 Branch days. aspirin 81 2021-09- No [id number] 81mg Take 1 [facility] mg chewable 0-15 -14 tablet by it y of tablet 00:00: 05:59 mouth in [place] 00 :[address] [facility] for 90 days. KCL 20 mEq 2021-09- No [id number] 40meq Take 2 [facility] tablet 0- tablets by ity of 00:00: 05:59 mouth in [place] 00 :[address] [facility] for 90 days. metFORMIN 2021-09- No [id number] 500mg Take 1 [facility] 500 mg 0- tablet by ity of tablet 00:00: 05:59 mouth in [place] 00 :[address] [facility] and 1 tablet in the evening. Take with meals. Do all this for 90 days. tamsulosin 2021-09- No [id number] .4mg Take 1 [facility] 0.4 mg 24 09-24 capsule by ity of hr capsule 00:00: 05:59 mouth at [facility] 00 :00 bedtime [facility] for 90 Branch days. amLODIPine 2021-09- No [id number] 5mg Take 1 [facility] 5 mg tablet 009-24 tablet by it y of 00:00: 05:59 mouth at [place] [facility] levETIRAcet 2021-09- No [id number] 250mg Take 1 [facility] am 250 mg 09-24 tablet by ity of tablet 00:00: 05:59 mouth in [place] 00 :[address] [facility] and 1 tablet in the evening. Do all this for 90 days. lisinopriL 2021-09- No [id number] 20mg Take 1 [facility] 20 mg 0- tablet by ity of tablet 00:00: 05:59 mouth in [place] 00 :[address] [facility] and 1 tablet in the evening. Do all this for 90 days. FLUoxetine 2021-09- No [id number] 20mg Take 1 [facility] 20 mg 0- capsule by ity of capsule 00:00: 05:59 mouth in [place] 00 :[address] [facility] for 90 days. memantine 2021-09- No [id number] 10mg Take 1 U nivers 10 mg 0-14 tablet by ity of tablet 00:00: 05:59 mouth in [place] 00 :[address] [facility] and 1 tablet in the evening. Do all this for 90 days. pyridostigm 2021-09- No [id number] 60mg Take 1 [facility] ine 60 mg 0-15 -14 tablet by ity of tablet 00:00: 05:59 mouth as [place] 00 :00 needed for Medical Other Branch (HYPOTENSI ON) for up to 90 days. simvastatin 2021-09- No [id number] 20mg Take 1 [facility] 20 mg 0-15 -14 tablet by ity of tablet 00:00: 05:59 mouth at [place] 00 :00 bedtime Medical for 90 Branch days. aspirin 81 2021-09- No [id number] 81mg Take 1 [facility] mg chewable 0-15 -14 tablet by it y of tablet 00:00: 05:59 mouth in [place] 00 :00 the Medical morning Branch for 90 days. KCL 20 mEq 2021-09- No [id number] 40meq Take 2 Univers tablet 009-24 tablets by ity of 00:00: 05:59 mouth in [place] 00 :00 the Medical morning Branch for 90 days. metFORMIN 2021-09- No [id number] 500mg Take 1 [facility] 500 mg 009-24 tablet by ity of tablet 00:00: 05:59 mouth in [place] 00 :00 the Medical morning Branch and 1 tablet in the evening. Take with meals. Do all this for 90 days. tamsulosin 2021-09- No [id number] .4mg Take 1 [facility] 0.4 mg 24 009-24 capsule by ity of hr capsule 00:00: 05:59 mouth at [place] 00 :00 bedtime Medical for 90 Branch days. amLODIPine 2021-09- No [id number] 5mg Take 1 [facility] 5 mg tablet 009-24 tablet by it y of 00:00: 05:59 mouth at [place] 00 :00 bedtime Medical for 90 Branch days. levETIRAcet 2021-09- No [id number] 250mg Take 1 [facility] am 250 mg 0-09-24 tablet by ity of tablet 00:00: 05:59 mouth in [place] 00 :00 the Medical morning Branch and 1 tablet in the evening. Do all this for 90 days. lisinopriL 2021-09- No [id number] 20mg Take 1 [facility] 20 mg 0-15 -14 tablet by ity of tablet 00:00: 05:59 mouth in [place] 00 :00 the Medical morning Branch and 1 tablet in the evening. Do all this for 90 days. FLUoxetine 2021-09- No [id number] 20mg Take 1 [facility] 20 mg 0-15 -14 capsule by ity of capsule 00:00: 05:59 mouth in [place] 00 :00 the Medical morning Branch for 90 days. memantine 2021-09- No [id number] 10mg Take 1 U nivers 10 mg 0-15 -14 tablet by ity of tablet 00:00: 05:59 mouth in [place] 00 :00 the Medical morning Branch and 1 tablet in the evening. Do all this for 90 days. pyridostigm 2021-09- No [id number] 60mg Take 1 [facility] ine 60 mg 0-15 -14 tablet by ity of tablet 00:00: 05:59 mouth as [place] 00 :00 needed for Medical Other Branch (HYPOTENSI ON) for up to 90 days. simvastatin 2021-09- No [id number] 20mg Take 1 [facility] 20 mg 0-15 -14 tablet by ity of tablet 00:00: 05:59 mouth at [place] 00 :00 bedtime Medical for 90 Branch days. aspirin 81 2021-09- No [id number] 81mg Take 1 [facility] mg chewable 0-15 -14 tablet by it y of tablet 00:00: 05:59 mouth in [place] 00 :00 the [facility] morning Branch for 90 days. KCL 20 mEq 2021-09- No [id number] 40meq Take 2 Univers tablet 0-15 -14 tablets by ity of 00:00: 05:59 mouth in [place] 00 :00 the Medical morning Branch for 90 days. metFORMIN 2021-09- No [id number] 500mg Take 1 [facility] 500 mg 0-15 -14 tablet by ity of tablet 00:00: 05:59 mouth in [place] 00 :00 the Medical morning Branch and 1 tablet in the evening. Take with meals. Do all this for 90 days. tamsulosin 2021-09- No [id number] .4mg Take 1 [facility] 0.4 mg 24 0-15 -14 capsule by ity of hr capsule 00:00: 05:59 mouth at [place] 00 :00 bedtime Medical for 90 Branch days. amLODIPine 2021-09- No [id number] 5mg Take 1 [facility] 5 mg tablet 0- tablet by it y of 00:00: 05:59 mouth at [place] 00 :00 bedtime Medical for 90 Branch days. levETIRAcet 2021-09- No [id number] 250mg Take 1 [facility] am 250 mg 0-14 tablet by ity of tablet 00:00: 05:59 mouth in [place] 00 :00 the Medical morning Branch and 1 tablet in the evening. Do all this for 90 days. lisinopriL 2021-09- No [id number] 20mg Take 1 [facility] 20 mg 0- tablet by ity of tablet 00:00: 05:59 mouth in [place] 00 :00 the Medical morning Branch and 1 tablet in the evening. Do all this for 90 days. FLUoxetine 2021-09- No [id number] 20mg Take 1 [facility] 20 mg 009-24 capsule by ity of capsule 00:00: 05:59 mouth in [place] 00 :00 the [facility] morning [place] for 90 days. memantine 2021-09- No [id number] 10mg Take 1 U nivers 10 mg 009-24 tablet by ity of tablet 00:00: 05:59 mouth in [place] 00 :00 the [facility] morning Branch and 1 tablet in the evening. Do all this for 90 days. pyridostigm 2021-09- No [id number] 60mg Take 1 [facility] ine 60 mg 0- tablet by ity of tablet 00:00: 05:59 mouth as [place] 00 :00 needed for Medical Other Branch (HYPOTENSI ON) for up to 90 days. simvastatin 2021-09- No [id number] 20mg Take 1 [facility] 20 mg 0-14 tablet by ity of tablet 00:00: 05:59 mouth at [place] 00 :00 bedtime Medical for 90 Branch days. aspirin 81 2021-09- No [id number] 81mg Take 1 [facility] mg chewable 015 -14 tablet by it y of tablet 00:00: 05:59 mouth in [place] 00 :00 the [facility] morning [place] for 90 days. KCL 20 mEq 2021-09- No [id number] 40meq Take 2 Univers tablet 015 01-14 tablets by ity of 00:00: 05:59 mouth in [place] 00 :00 the Medical morning Branch for 90 days. gabapentin 2021-09- No [id number] 300mg Take 1 [facility] 300 mg 0-15 12-15 capsule by ity of capsule 00:00: 05:59 mouth as [place] 00 :00 needed for Medical Pain Branch (scale 4-6) for up to 60 days. gabapentin 2021-09- No [id number] 300mg Take 1 [facility] 300 mg 0-15 12-15 capsule by ity of capsule 00:00: 05:59 mouth as [place] 00 :00 needed for Medical Pain Branch (scale 4-6) for up to 60 days. gabapentin 2021-09- No [id number] 300mg Take 1 [facility] 300 mg 0-15 12-15 capsule by ity of capsule 00:00: 05:59 mouth as [place] 00 :00 needed for Medical Pain Branch (scale 4-6) for up to 60 days. gabapentin 2021-09- No [id number] 300mg Take 1 [facility] 300 mg 0-15 12-15 capsule by ity of capsule 00:00: 05:59 mouth as [place] 00 :00 needed for Medical Pain Branch (scale 4-6) for up to 60 days. gabapentin 2021-09- No [id number] 300mg Take 1 [facility] 300 mg 0-15 12-15 capsule by ity of capsule 00:00: 05:59 mouth as [place] 00 :00 needed for Medical Pain Branch (scale 4-6) for up to 60 days. gabapentin 2021-09- No [id number] 300mg Take 1 [facility] 300 mg 0-15 12-15 capsule by ity of capsule 00:00: 05:59 mouth as [place] 00 :00 needed for Medical Pain Branch (scale 4-6) for up to 60 days. gabapentin 2021-09- No [id number] 300mg Take 1 [facility] 300 mg 0-15 12-15 capsule by ity of capsule 00:00: 05:59 mouth as [place] 00 :00 needed for Medical Pain Branch (scale 4-6) for up to 60 days. gabapentin 2021-09- No [id number] 300mg Take 1 [facility] 300 mg 0-15 12-15 capsule by ity of capsule 00:00: 05:59 mouth as [place] 00 :00 needed for Medical Pain Branch (scale 4-6) for up to 60 days. gabapentin 2021-09- No [id number] 300mg Take 1 [facility] 300 mg 0-15 12-15 capsule by ity of capsule 00:00: 05:59 mouth as [place] 00 :00 needed for Medical Pain Branch (scale 4-6) for up to 60 days. gabapentin 2021-09- No [id number] 300mg Take 1 [facility] 300 mg 0-15 12-15 capsule by ity of capsule 00:00: 05:59 mouth as [place] 00 :00 needed for Medical Pain Branch (scale 4-6) for up to 60 days. gabapentin 2021-09- No [id number] 300mg Take 1 [facility] 300 mg 0-15 12-15 capsule by ity of capsule 00:00: 05:59 mouth as [place] 00 :00 needed for Medical Pain Branch (scale 4-6) for up to 60 days. amitriptyli 2021-09- No [id number] 100mg Take 2 Univers ne 50 mg 0-15 10-23 tablets by ity of tablet 00:00: 04:59 mouth at [place] 00 :00 bedtime Medical for 7 Branch days. amitriptyli 2021-09 No [id number] 100mg Take 2 Univers ne 50 mg 0-15 10-23 tablets by ity of tablet 00:00: 04:59 mouth at [place] 00 :00 bedtime Medical for 7 Branch days. amitriptyli 2021-09- No [id number] 100mg Take 2 Univers ne 50 mg [...] Shawn as RTU IV 55 :55 on [facility] Piggyback 06/24/22 Branch at 0830, Until 06/24/22 at 0830, Administer over 60 Minutes, CV Intraproce dure metFORMIN 2021-09 Yes 500mg 500 mg, Univ ers (GLUCOPHAGE 0-13 Oral, BID ity of ) tablet 22:00: MEALS, [place] 500 mg 00 First dose Medical on [facility] 06/23/22 at 1700, Until Discontinu ed, Routine metFORMIN 2021-09- No 500mg 500 mg, Uni vers (GLUCOPHAGE 0- 10- Oral, BID it y of ) tablet 22:00: 21:09 MEALS, [place] 500 mg 00 :41 First dose Medical on [facility] 06/23/22 at 1700, Until Discontinu ed, Routine amLODIPine 2021-09- No 5mg 5 mg, Unive rs (NORVASC) 0- 10- Oral, ity of tablet 5 mg 16:52: 17:31 ONCE, 1 [place] 00 :00 dose, On [facility] 06/23/22 at 1200, Routine captopriL 2021-09- No 12.5mg 12.5 mg, U nivers (CAPOTEN) 0- 10- Oral, ity of tablet 12.5 04:45: 04:56 ONCE, 1 [place] mg 00 :00 dose, On [facility] 06/22/22 at 2345, Routine labetaloL 2021-09 No 5mg 5 mg, Slow U nivers (NORMODYNE) 0- 10- IV Push, ity of injection 5 03:45: 03:12 ONCE, 1 [place] mg 00 :00 dose, On [facility] 06/22/22 at 2245, Routine vitamin 2021-09- No [...] mg 00 :01 First dose Medical on [facility] Branch 06/22/22 at 1130, Until [...] First dose Medi joyce 40 mg on [facility] Branch 06/22/22 at 0900, Until Discontinu [...] :53 dose, On Medic al 0.9% (NS) [facility] Branch 100 mL IV 06/22/22 piggyback at 0815, Administer over 15 Minutes, 100 mL magnesium 2021-09 No 4g 4 g, IV Univ ers sulfate in 06-22 Piggyback, it y of water 4 12:15: 15:48 at 25 [place] gram/50 mL 00 :01 mL/hr Medical (8 %) IV Administer Branc h Piggyback 4 over 120 g Minutes, ONCE, 1 dose, On Mon06/22/22 at 0715, Routine amLODIPine 2021-09 No 5mg 5 mg, Unive rs (NORVASC) 0- 10-13 Oral, ity of tablet 5 mg 08:30: 16:53 DAILY, [place] as 00 :37 First dose Medical on [facility] 06/22/22 at 0330, Until Discontinu ed, Routine melatonin 2021-09 Yes 3mg 3 mg, Univers (MELATIN) 0-12 Oral, QHS, ity of tablet 3 mg 02:00: First dose [place] 00 on [facility] 06/21/22 Branch at 2100, Until Discontinu ed, Routine melatonin 2021-09 No 3mg 3 mg, Univer s (MELATIN) 0-12 10-15 Oral, QHS, ity of tablet 3 mg 02:00: 21:09 First dose [place] 00 :41 on [facility] 06/21/22 [place] at 2100, Until Discontinu ed, Routine hydrOXYzine 2021-09 No 10mg 10 mg, Uni vers (ATARAX) 0- 10-12 Oral, ity of tablet 10 02:00: 01:08 ONCE, 1 [place] mg 00 :00 dose, On Medical [facility] 06/21/22 at 2100, Routine enoxaparin 2021-09 Yes 40mg 40 mg, Unive rs (LOVENOX) 0-11 Subcutaneo ity of injection 22:00: [place], [place]ILY, [place] 40 mg 00 First dose Medical on [facility] 06/21/22 at 1700, Until Discontinu ed, Routine enoxaparin 2021-09 No 40mg 40 mg, Univ ers (LOVENOX) 0-11 10-15 Subcutaneo ity of injection 22:00: 21:09 [place], DAILY, [place] 40 mg 00 :41 First dose Medical on [facility] 06/21/22 at 1700, Until Discontinu ed, [...] 00 First dose Medical (HumaLOG) + on [facility] 06/21/22 Testing at 1200, Until Discontinu ed, Routine Sliding 2021-09- No Subcutaneo Uni vers Scale 0-11 10-15 us, TID ity of Insulin - 17:00: 21:09 MEALS+HS, [place] Lispro 00 :41 First dose Medical (HumaLOG) + on [facility] 06/21/22 Testing at 1200, Until Discontinu ed, Routine sulfur 2021-09- No [id number] 5mL 5 mL, Unive rs hexafluorid 0-11 10-11 Intravenou i ty of e microsphr 17:00: 17:00 s, ONCE, 1 [place] (LUMASON) 00 :00 dose, On Medica l injection 5 [facility] mL 06/21/22 at 1200, Routine
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..] 34 Starting Medical injection 1 on Mon [facility] 06/21/22 at 1042, Until Discontinu ed, YOKO, Blood Glucose < or = 70 mg/dL and patient is unable to swallow or has mental changes. glucagon 2021-09- No 1mg 1 mg, Univers (GLUCAGEN 0-11 10-15 Intramuscu ity of DIAGNOSTIC 15:42: 21:09 lar, PRN, [place] KIT) 34 :41 Starting Medical injection 1 on [facility] mg 06/21/22 at 1042, Until 06/25/22 at 1609, YOKO, Blood Glucose < or = 70 mg/dL and patient is unable to swallow or has mental changes. acetaminoph 2021-09 Yes 650mg 650 mg, Un teo en 0-11 Oral, ity of (TYLENOL) 15:21: Q6HPRN, [place] tablet 650 10 Starting Medic al mg on [facility] 06/21/22 at 1021, Until Discontinu ed, Routine, Pain (scale 1-3) acetaminoph 2021-09- No 650mg 650 mg, U nivers en 0-11 -15 Oral, ity of (TYLENOL) 15:21: 21:09 Q6HPRN, [place] tablet 650 10 :41 Starting Medic al mg on [facility] 06/21/22 at 1021, Until 06/25/22 at 1609, Routine, Pain (scale 1-3) melatonin 2021-09- No 3mg 3 mg, Univer s (MELATIN) 06-21 Oral, ity of tablet 3 mg 09:15: 08:30 ONCE, 1 [place] 00 :[place] dose, On Medical [facility] 06/21/22 at 0415, Routine aspirin 2021-09- No 325mg 325 mg, Unive rs E.C. 06-21 Oral, ity of (ECOTRIN) 08:30: 08:30 ONCE, 1 [place] 325 00 :00 dose, On Medic al mg [facility] 06/21/22 at 0330, STAT atenoloL 2021-09- No 100mg 100 mg, Univ ers (TENORMIN) 06-21 Oral, ity of tablet 100 03:00: 02:13 ONCE, 1 [place] mg 00 :00 dose, On [facility] 06/20/22 at 2200, Routine cloNIDine 2021-09- No .2mg 0.2 mg, Univ ers (CATAPRES) 006-21 Oral, ity of tablet 0.2 02:15: 02:14 ONCE, 1 [place] mg 00 :00 dose, On [facility] 06/20/22 at 2115, STAT iopamidol 2021-09- No [id number] 150mL 150 mL, Univers (ISOVUE 0-10 10-10 Intravenou ity o f 370-500 mL) 21:15: 21:15 s, ONCE, 1 [place] injection 00 :00 dose, On Medica l 150 mL [facility] 06/20/22 at 1615, Routine acetaminoph 2021-09- No 1000mg 1,000 mg, Univers en 0-10 10-10 Oral, ity of (TYLENOL) 21:00: 20:46 ONCE, 1 [place] tablet [place] :00 dose, On Medical 1,000 mg [facility] 06/20/22 at 1600, YOKO piperacilli 2021-09- No 3.375g 3.375 g, Univers n-tazobacta 0-10 10-11 IV ity of m (ZOSYN) 19:30: 18:13 Piggyback, [place] 3.375 g in 00 :39 Q8H ABX, Medic al NaCl 0.9% First dose Bran ch (NS) 100 mL on [facility] MINI-BAG 06/20/22 at 1430, Until Discontinu ed, [...] Medical Piggyback, Branch ONCE, 1 dose, On [facility] 06/20/22 at 1430, STAT tamsulosin 2021- No [...] of 100 unit/mL 00:00: 00:00 under the [place] (3 mL) 00 :00 skin. Medical injection Branch Insulin 2022- No 15U inject 15 Univ ers Glargine 03-29 Units ity of 100 unit/mL 00:00: 00:00 under the [place] (3 mL) 00 :00 skin. Medical injection [...] by mouth 2 Center (two) times daily. [facility] Yes 10mg QD Take [address] [facility] mg tablet 7-09 by [facility] 00[facility]: daily. [address] Yes 10mg QD Take [address] [facility] mg tablet 7-09 by mouth [facility] 00:00: daily. [address] Yes 10mg QD Take [address] [facility] mg tablet 7-09 by mouth [facility] 00:00: daily. [address] Yes 10mg QD Take [address] [facility] mg tablet 7-09 by mouth [facility] 00:00: daily. [address] Yes 10mg QD Take [address] [facility] mg tablet 7-09 by mouth [facility] 00:00: daily. [address] Yes 10mg QD Take [address] [facility] mg tablet 7-09 by mouth [facility] 00:00: daily. [address] Yes 10mg QD Take [address] [facility] mg tablet 7-09 by mouth [facility] 00:00: daily. [address] Yes 10mg QD Take [address] [facility] mg tablet 7-09 by mouth [facility] 00:00: daily. [address] Yes 10mg QD Take [address] [facility] mg tablet 7-09 by mouth [facility] 00:00: daily. [address] 10 2020-0 Yes 10mg QD Take [address] [facility] mg tablet 7-09 by mouth [facility] 00:00: daily. [address] 10 2020-0 Yes 10mg QD Take [address] [facility] mg tablet 7-09 by mouth [facility] 00:00: daily. [address] 10 2020-0 Yes 10mg QD Take [address] [facility] mg tablet 7-09 by mouth [facility] 00:00: daily. [address] simvastatin 2020-0 Yes 20mg QD Take [address] [facility] (ZOCOR) 20 5-13 by mouth [facility] MG tablet 00:00: nightly. [address] tamsulosin 2020-0 Yes .4mg Take 0.[address] [facility] (FLOMAX) 5-13 mg by [facility] 0.4 mg Cap 00:00: mouth Medica l 24 hr 00 Daily Center capsule (1800). simvastatin 2020-0 Yes 20mg QD Take [address] [facility] (ZOCOR) 20 5-13 by mouth [facility] MG tablet 00:00: nightly. [address] tamsulosin 2020-0 Yes .4mg Take 0.[address] [facility] (FLOMAX) 5-13 mg by [facility] 0.4 mg Cap 00:00: mouth Medica l 24 hr 00 Daily Center capsule (1800). simvastatin 2020-0 Yes 20mg QD Take [address] [facility] (ZOCOR) 20 5-13 by mouth [facility] MG tablet 00:00: nightly. [address] tamsulosin 2020-0 Yes .4mg Take 0.[address] [facility] (FLOMAX) 5-13 mg by [facility] 0.4 mg Cap 00:00: mouth Medica l 24 hr 00 Daily Center capsule (1800). simvastatin 2020-0 Yes 20mg QD Take [address] [facility] (ZOCOR) 20 5-13 by mouth [facility] MG tablet 00:00: nightly. [address] tamsulosin 2020-0 Yes .4mg Take 0.[address] [facility] (FLOMAX) 5-13 mg by [facility] 0.4 mg Cap 00:00: mouth Medica l 24 hr 00 Daily Center capsule (1800). simvastatin 2020-0 Yes 20mg QD Take [address] [facility] (ZOCOR) 20 5-13 by mouth [facility] MG tablet 00:00: nightly. [address] tamsulosin 2020-0 Yes .4mg Take 0.[address] [facility] (FLOMAX) 5-13 mg by [facility] 0.4 mg Cap 00:00: mouth Medica l 24 hr 00 Daily Center capsule (1800). simvastatin 2020-0 Yes 20mg QD Take [address] [facility] (ZOCOR) 20 5-13 by mouth [facility] MG tablet 00:00: nightly. [address] tamsulosin 2020-0 Yes .4mg Take 0.[address] [facility] (FLOMAX) 5-13 mg by [facility] 0.4 mg Cap 00:00: mouth Medica l 24 hr 00 Daily Center capsule (1800). simvastatin 2020-0 Yes 20mg QD Take [address] [facility] (ZOCOR) 20 5-13 by mouth [facility] MG tablet 00:00: nightly. [address] tamsulosin 2020-0 Yes .4mg Take 0.[address] [facility] (FLOMAX) 5-13 mg by [facility] 0.4 mg Cap 00:00: mouth Medica l 24 hr 00 Daily Center capsule (1800). simvastatin 2020-0 Yes 20mg QD Take [address] [facility] (ZOCOR) 20 5-13 by mouth [facility] MG tablet 00:00: nightly. [address] tamsulosin 2020-0 Yes .4mg Take 0.[address] [facility] (FLOMAX) 5-13 mg by [facility] 0.4 mg Cap 00:00: mouth Medica l 24 hr 00 Daily Center capsule (1800). simvastatin 2020-0 Yes 20mg QD Take [address] [facility] (ZOCOR) 20 5-13 by mouth [facility] MG tablet 00:00: nightly. [address] tamsulosin 2020-0 Yes .4mg Take 0.[address] [facility] (FLOMAX) 5-13 mg by [facility] 0.4 mg Cap 00:00: mouth Medica l 24 hr 00 Daily Center capsule (1800). simvastatin 2020-0 Yes 20mg QD Take [address] [facility] (ZOCOR) 20 5-13 by mouth [facility] MG tablet 00:00: nightly. [address] tamsulosin 2020-0 Yes .4mg Take 0.[address] [facility] (FLOMAX) 5-13 mg by [facility] 0.4 mg Cap 00:00: mouth Medica l 24 hr 00 Daily Center capsule (1800). simvastatin 2020-0 Yes 20mg QD Take [address] [facility] (ZOCOR) 20 5-13 by mouth [facility] MG tablet 00:00: nightly. [address] tamsulosin 2020-0 Yes .4mg Take 0.[address] [facility] (FLOMAX) 5-13 mg by [facility] 0.4 mg Cap 00:00: mouth Medica l 24 hr 00 Daily Center capsule (1800). simvastatin 2020-0 Yes 20mg QD Take [address] [facility] (ZOCOR) 20 5-13 by mouth [facility] MG tablet 00:00: nightly. [address] tamsulosin 2020-0 Yes .4mg Take 0.[address] [facility] (FLOMAX) 5-13 mg by [facility] 0.4 mg Cap 00:00: mouth Medica l 24 hr 00 Daily Center capsule (1800). omeprazole 2020-0 Yes 20mg QD Take [address] [facility] (PRILOSEC) 5-04 by mouth [facility] 20 MG 00:00: daily. Medical capsule [address] [place] omeprazole 2020-0 Yes 20mg QD Take [address] (PRILOSEC) 5-04 by mouth [facility] 20 MG 00:00: daily. Medical capsule 00 [place] omeprazole 2020-0 Yes 20mg QD Take [address] (PRILOSEC) 5-04 by mouth [facility] 20 MG 00:00: daily. Medical capsule 00 [place] omeprazole 2020-0 Yes 20mg QD Take [address] (PRILOSEC) 5-04 by mouth [facility] 20 MG 00:00: daily. Medical capsule 00 [place] omeprazole 2020-0 Yes 20mg QD Take [address] (PRILOSEC) 5-04 by mouth [facility] 20 MG 00:00: daily. Medical capsule 00 [place] omeprazole 2020-0 Yes 20mg QD Take [address] (PRILOSEC) 5-04 by mouth [facility] 20 MG 00:00: daily. Medical capsule 00 [place] omeprazole 2020-0 Yes 20mg QD Take [address] (PRILOSEC) 5-04 by mouth [facility] 20 MG 00:00: daily. Medical capsule 00 [place] omeprazole 2020-0 Yes 20mg QD Take [address] (PRILOSEC) 5-04 by mouth [facility] 20 MG 00:00: daily. Medical capsule 00 [place] omeprazole 2020-0 Yes 20mg QD Take [address] (PRILOSEC) 5-04 by mouth [facility] 20 MG 00:00: daily. Medical capsule 00 [place] omeprazole 2020-0 Yes 20mg QD Take [address] (PRILOSEC) 5-04 by mouth [facility] 20 MG 00:00: daily. Medical capsule [address] [place] [address] omeprazole 2020-0 Yes 20mg QD Take [address] (PRILOSEC) 5-04 by mouth [facility] 20 MG 00:00: daily. Medical capsule [address] [place] [address] omeprazole 2020-0 Yes 20mg QD Take [address] (PRILOSEC) 5-04 by mouth [facility] 20 MG 00:00: daily. Medical capsule [address] [place] [address] fLUoxetine 0 Yes 20mg QD Take [address] (PROZAC) 20 8-23 by mouth [facility] MG capsule 00:00: daily. Medic al [address] [place] [address] 3 Yes 3mg QD Take [address] mg Tab 8-23 by mouth [facility] tablet 00:00: nightly. [address] 3 0 Yes 3mg QD Take [address] mg Tab 8-23 by mouth [facility] tablet 00:00: nightly. [address] fLUoxetine Yes 20mg QD Take [address] (PROZAC) 20 8-23 by mouth [facility] MG capsule 00:00: daily. [facility] al [address] [place] [address] 3 Yes 3mg QD Take [address] mg Tab 8-23 by mouth [facility] tablet 00:00: nightly. [address] fLUoxetine 2019-0 Yes 20mg QD Take [address] (PROZAC) 20 8-23 by mouth Luke s MG capsule 00:00: daily. Medic al [address] [place] [address] 3 2018-0 Yes 3mg QD Take [address] mg Tab 8-23 by mouth [facility] tablet 00:00: nightly. [address] fLUoxetine 2018-0 Yes 20mg QD Take [address] (PROZAC) 20 8-23 by mouth Luke s MG capsule 00:00: daily. Medic al [address] [place] [address] 3 2018-0 Yes 3mg QD Take [address] mg Tab 8-23 by mouth [facility] tablet 00:00: nightly. [address] fLUoxetine 2019-0 Yes 20mg QD Take [address] (PROZAC) 20 8-23 by mouth Luke s MG capsule 00:00: daily. [address] 3 2018-0 Yes 3mg QD Take [address] mg Tab 8-23 by mouth [facility] tablet 00:00: nightly. [address] fLUoxetine 2019-0 Yes 20mg QD Take [address] (PROZAC) 20 8-23 by mouth Luke s MG capsule 00:00: daily. [address] 3 0 Yes 3mg QD Take [address] mg Tab 8-23 by mouth [facility] tablet 00:00: nightly. [address] fLUoxetine 2019-0 Yes 20mg QD Take [address] (PROZAC) 20 8-23 by mouth Luke s MG capsule 00:00: daily. [address] 3 Yes 3mg QD Take [address] mg Tab 8-23 by mouth [facility] tablet 00:00: nightly. [address] fLUoxetine 2019-0 Yes 20mg QD Take [address] (PROZAC) 20 8-23 by mouth Luke s MG capsule 00:00: daily. [address] 3 Yes 3mg QD Take [address] mg Tab 8-23 by mouth [facility] tablet 00:00: nightly. [address] fLUoxetine 2019-0 Yes 20mg QD Take [address] (PROZAC) 20 8-23 by mouth Luke s MG capsule 00:00: daily. [address] 3 2018- Yes 3mg QD Take [address] mg Tab 8-23 by mouth [facility] tablet 00:00: nightly. [address] fLUoxetine 2019-0 Yes 20mg QD Take [address] (PROZAC) 20 8-23 by mouth Luke s MG capsule 00:00: daily. [address] 3 2018-0 Yes 3mg QD Take [address] mg Tab 8-23 by mouth [facility] tablet 00:00: nightly. [address] fLUoxetine 2019-0 Yes 20mg QD Take [address] (PROZAC) 20 8-23 by mouth Luke s MG capsule 00:00: daily. [address] 3 2018-0 Yes 3mg QD Take [...] PO, l MG Oral 21:04: Q12H, 0 [place] Capsule 00 Refill(s) atorvastati Yes 10 mg = 1 M emoria n 10 mg 6-19 tab, PO, l oral tablet 21:04: Bedtime, 0 [place] 00 Refill(s) sennosides, Yes 8.6 mg = 1 Memoria LONGTERM 8.6 MG 6-19 tab, PO, l Oral Tablet 21:04: Q12H, 0 Her antonio 00 Refill(s) levofloxaci Yes 500 mg = 1 Memoria n 500 mg 6-19 tab, PO, l oral tablet 21:04: [id number], 0 [place] 00 Refill(s) Humalog No Notes: Memoria 6-18 (Same as: l 16:30: Humalog ) [place] 00 Roll in palms of hands gently; [...] s with feeding tube less than 14 [place] (Dobhoff, J-tube etc) and pediatric and patients. With food and full glass of water insulin, No Notes: Memoria isophane -16 Roll in l 23:02: palms of [place] 00 hands gently; Do not shake vigorously . (Same as: Humulin N) Do not hold insulin without contacting prescriber WASTE: F/P - Black; E - Municipal Trash Bin Stable for 28 days at room temperatur e Expires in days from ____Date Humalog No Notes: Memoria -16 (Same as: l 21:30: Humalog ) [place] 00 Roll in palms of hands gently; Do not shake `vigorousl y. "Single Patient Use Only " WASTE: F/P - Black; E - Municipal Trash Bin Stable for 28 days at room temperatur e. Expires in days from ____Date Insulin, No 4 unit, Memori a Aspart, 02-24 Route: l Human 21:30: SUB-Q, TID-Before Meals, Dosing Weight 81.9, kg, Start date: 02/24/18 16:30:00 CDT, Duration: 30 day, Stop date: 03/26/18 11:30:00 CDT Lasix No Notes: Memoria 02-24 (Same as: l 20:54: Lasix) MEDICATION WASTE Product Size: 40 mg Product Wasted: ___ mg Potassium No Notes: Memori a Chloride 02-24 (Same as: l 12:00: KCL) Infuse over 2 hours. Levofloxaci No 500 mg, 1 M emoria n 02-24 tab, l 11:49: Route: PO, Drug form: TAB, [id number], Dosing Weight 81.9, kg, Priority: NOW, Start [...] 6-16 (Same as: l 07:49: KCL) [place] Infuse over 2 hours. Potassium No Notes: [...] s with feeding tube less than 14 [place] (Dobhoff, J-tube etc) and pediatric and patients. With food and full glass of water potassium No Notes: Memori a phosphate-s 6-16 (Same as: l odium 07:28: Phos-NaK) [place] phosphate 00 Each 1.5 250 mg-280 gm pkt has mg-160 mg 250mg oral powder phosphorou for s. Mix reconstitut w/2.5oz ion water and stir. Potassium No Notes: Memori a Chloride 6-16 (Same as: l 07:28: KCL) [place] Infuse over 2 hours. Magnesium No Notes: Memori a Sulfate 6-16 WASTE: F/P l 07:28: - Sink; E [place] 00 - Municipal Trash Bin sodium No 15 mmol, 5 Memor ia phosphate 6-16 mL, Route: l 07:28: IVPB, PRN, [place] 00 Dosing Weight 81.9, kg, PRN Abnormal Lab Result, For NON-ICU Patients Only., Start date: 02/24/18 2:28:00 CDT, Duration: 30 day, Stop date: 03/26/18 2:27:00 CDT potassium No Notes: Memori a phosphate 16 (Same as: l 07:28: K Phosphate. ) 1 mMol phoshate has 1.47 mEq potassium Infuse over 4 hours Calcium No Notes: Memoria Gluconate 02-24 WASTE: F/P l 07:28: - Sink; E - Municipal Trash Bin Magnesium No Notes: Memori a Oxide 16 (Same as: l 07:28: Mag-Ox 400) Magnesium oxide [id number]=686d g elemental magnesium Dose=____m g magnesium oxide (___mg elemental magnesium) Bisacodyl No Notes: Memori a 6-15 (Same As: l 14:04: Dulcolax, [place] Bisco-Lax) Levofloxaci No Notes: Do M emoria [...] No Notes: Memori a 400 MG Oral -13 (Same as: l Tablet 21:30: Motrin) "Do Not Crush" Give with food. Bisacodyl No 10 mg, Memori a 02-21 Route: IA, l 14:02: Drug form: SUPP, ONCE, Dosing Weight 81.9, kg, Start date: 02/21/18 9:02:00 CDT, Stop date: 02/21/18 9:02:00 CDT nebivolol No Notes: Memori a - (same as: l 14:00: Bystolic) Miralax No Notes: Memoria 6-13 Dissolve l 14:00: in 8 oz of water or juice. (Same as: Miralax) piperacilli No Notes: Dirk reji n-tazobacta 02-21 (Same as: l m 13:32: Zosyn) Dosing based on Piperacill in component MEDICATION WASTE Product Size: 4500 mg Product Wasted: ___ mg cefepime No /= 50 Memoria 6-13 ml/min), l 12:00: Start date: 02/21/18 7:00:00 CDT, Duration: 7 day, Stop date: 02/27/18 23:00:00 CDT, ABX Indication : Pneumonia Zosyn No Notes: Memoria -13 (Same as: l 11:43: Zosyn) Dosing based on Piperacill in component MEDICATION WASTE Product Size: 4500 mg Product Wasted: ___ mg Insulin No Notes: Memoria Glargine 02-21 Same as: l 100 UNT/ML 11:42: Lantus) Do H not hold Solution insulin [Lantus] without contacting prescriber WASTE: F/P - Black; E - Municipal Trash Bin Tylenol No 1,000 mg, Memor ia 02-21 Route: PO, l 11:00: Q6H, Dosing Weight 81.9, kg, Start date: 02/21/18 6:00:00 CDT, Duration: 30 day, Stop date: 03/23/18 0:00:00 CDT Lasix No Notes: Memoria 6-13 (Same as: l 10:02: Lasix) [place] 00 Water 1000 No 457.25 mL, M [place] MG/ML 6-13 Rate: 500 l Injectable 09:07: [...] phosphate 6-13 (Same as: l 05:41: K [place] 00 Phosphate. ) 1 mMol phoshate has 1.47 mEq potassium Infuse over 4 hours Potassium No Notes: Memori a Chloride 6-13 (Same as: l 05:41: Potassium [place] 00 Chloride) Calcium No Notes: Memoria Carbonate 6-13 (Same As: l 500 MG 05:41: Tums) [place] Chewable 00 Calcium Tablet Carbonate 500 mg = 200 mg elemental calcium Dose = mg calcium carbonate ( mg elemental calcium) Magnesium No Notes: Memori a Sulfate 6-13 WASTE: F/P l 05:41: - Sink; E [place] 00 - Municipal Trash Bin potassium No Notes: Memori a phosphate-s 6-13 (Same as: l odium 05:41: Phos-NaK) [place] phosphate 00 Each 1.5 250 mg-280 gm pkt has mg-160 mg 250mg oral powder phosphorou for s. Mix reconstitut w/2.5oz ion water and stir. Calcium No Notes: Memoria Gluconate 6-13 WASTE: F/P l 05:41: - Sink; E [place] 00 - Municipal Trash Bin Magnesium No Notes: Memori a Oxide 02-21 (Same as: l 05:41: Mag-Ox [place] 00 400) Magnesium oxide 558yn=025q g elemental magnesium Dose=____m g magnesium oxide (___mg elemental magnesium) Nicardipine No Notes: Dirk reji 02-21 Same as: l 05:40: Cardene [place] 00 Concentrat ion: (0.1 mg/ 1 ml) Sodium No 1,000 mL, Memori a Chloride 02-21 Rate: 75 l 0.9% IV 05:40: ml/hr, [place] 1,000 mL 00 Infuse over: 13.3 hr, [...] ia 02-21 (Same as: l 02:00: Prinivil, [place] 00 Zestril) atorvastati No Notes: Dirk reji n 02-21 (Same As: l 02:00: Lipitor) heparin No Notes: Memoria sodium, 02-20 porcine l porcine 21:00: heparin [place] 2500 UNT/ML 00 Injectable Solution Tramadol No 50 mg, 1 Memor ia 02-20 tab, l 19:45: Route: PO, [place] 00 Drug form: TAB, Q6H, Dosing Weight 81.9, kg, PRN Pain Score 4-6, Start date: 02/20/18 14:45:00 CDT, Duration: 30 day, Stop date: 03/22/18 14:44:00 CDT Acetaminoph No Notes: Do M emoria en 02-20 not exceed l 19:42: 4 gm/day. [place] 00 (Same as: Tylenol) Insulin No Notes: Memoria Lispro -12 (Same as: l 14:44: Humalog ) Roll [...] ia -12 (Same as: l 14:00: Prozac, Saraf[place]) Zocor [...] Memoria 6-11 (Same as l 21:00: Ancef) [place] 00 Isolyte S No Notes: Memori a PH 7.4 6-11 (Same as: l 1,000 mL 19:45: Isolyte S PH 7.4) sugammadex No Route: IV, M emoria (ANES) 6 Drug form: l 14:34: SOLN, [place] 00 ONCE, Stop date: 02/19/18 9:34:00 CDT [...] Not Crush) sennosides, No Notes: Dirk reji LONGTERM 6-11 (Same as: l 14:00: Senokot) Levetiracet [...] 02-19 Total l 0.9% IV 13:32: Volume: [place] (ANES) 1000 00 1,000, mL Start date: 02/19/18 8:32:00 CDT, Stop date: 02/19/18 9:32:00 CDT Hydralazine No 10 mg, Dirk reji 02-19 Route: l 13:29: IVP, [place] 00 Q20Min, Dosing Weight 81.9, kg, PRN Elevated BP, Start date: 02/19/18 8:29:00 CDT, Duration: 2 doses or times, Stop date: Limited # of times Labetalol No 10 mg, Memori a 02-19 Route: [...] Metoprolol 2018-0 No 1 mg, Memori a 6-11 Route: l 13:29: IVP, [place] 00 Q5Min, Dosing Weight 81.9, kg, PRN Other -See Comment, Start date: 02/19/18 8:29:00 CDT, Duration: 5 doses or times, Stop date: Limited # of times Acetaminoph 2018-0 No 1,000 mg, M emoria en 611 Route: PO, l 13:29: Drug form: [place] 00 TAB, ONCE, Dosing Weight 81.9, kg, PRN Pain Score 1-3, Start date: 02/19/18 8:29:00 CDT Fentanyl 2018-0 No 50 Memoria 6-11 microgram, l 13:29: Route: [place] 00 IVP, Q5Min, Dosing Weight 81.9, kg, PRN Pain Score 7-10, Priority: Routine, Start date: 02/19/18 8:29:00 CDT, Duration: 2 doses or times, Stop date: Limited # of times Hydromorpho 2018-0 No 0.5 mg, Mem oria ne 6-11 Route: l 13:29: IVP, [place] 00 Q5Min, Dosing Weight 81.9, kg, PRN Pain Score 7-10, Start date: 02/19/18 8:29:00 CDT, Duration: 4 doses or times, Stop date: Limited # of times Ondansetron 2018-0 No 4 mg, Memor ia 6-11 Route: l 13:29: IVP, ONCE, [place] 00 Dosing Weight 81.9, kg, PRN Nausea & Vomiting, Start date: 02/19/18 8:29:00 CDT Naloxone 2018-0 No 0.4 mg, Memori a 6-11 Route: l 13:29: IVP, [place] 00 Q2MIN, Dosing Weight 81.9, kg, PRN Narcotic Reversal, Start date: 02/19/18 8:29:00 CDT, Duration: 8 doses or times, Stop date: Limited # of times Flumazenil No 0.2 mg, Dirk reji 611 Route: l 13:29: IVP, PRN, [place] 00 Dosing Weight 81.9, kg, PRN Benzodiaze pine Reversal, Initial dose, Start date: 02/19/18 8:29:00 CDT, Duration: 30 day, Stop date: 03/21/18 8:28:00 CDT Sodium No Route: IV, Memor ia Chloride -11 Total l 0.9% IV 13:06: Volume: [place] (ANES) 500 00 500, Start mL date: 02/19/18 8:06:00 CDT, Stop date: 02/19/18 9:06:00 CDT propofol 0 No Route: IV, Mem oria (ANES) 10 02-19 Drug form: l mg 12:55: INJ, Start date: 02/19/18 7:55:00 CDT, Stop date: 02/19/18 8:55:00 CDT remifentani No Route: IV, Memoria l (ANES) 1 11 Drug form: l mg 12:55: INJ, Start date: 02/19/18 7:55:00 CDT, Stop date: 02/19/18 8:55:00 CDT Lactated No Route: IV, Mem oria Ringers 6-11 Total l Injection 12:36: Volume: Elyse nn IV (ANES) 00 1,000, 1000 mL Start date: 02/19/18 7:36:00 CDT, Stop date: 02/19/18 8:36:00 CDT Sodium 0 No 3 gm, 3 Memoria Chloride 6-11 tab, l 1000 MG 12:30: Route: NJFina roxanne Oral Tablet 00 Drug form: TAB, [...] [place] 00 Infuse over 2 hours. Nicardipine No Notes: Dirk reji 6-11 Same as: l 10:56: Cardene [place] 00 Concentrat ion: (0.1 mg/ 1 ml) Labetalol 2018- No 10 mg, 2 Dirk reji 6-11 mL, Route: l 10:44: IVP, Drug form: INJ, Q1H, Dosing Weight 82.8, kg, PRN Hypertensi on, Start date: 02/19/18 5:44:00 CDT, Duration: 30 day, Stop date: 03/21/18 5:43:00 CDT Hydralazine 2017-0 No Notes: Dirk reji 6-11 (Same as: l 10:44: Apresoline [place] 00 ) Push over 5 minutes potassium 2017- No 15 mmol, Dirk reji phosphate 6-11 Route: l 10:44: IVPB, PRN, Dosing Weight 82.8, kg, PRN Abnormal Lab Result, Start date: 02/19/18 5:44:00 CDT, Duration: 30 day, Stop date: 03/21/18 5:43:00 CDT, FOR ICU USE ONLY sodium 2017- No 15 mmol, Memoria phosphate 6-11 Route: l 10:44: IVPB, PRN, Dosing Weight 82.8, kg, PRN Abnormal Lab Result, Start date: 02/19/18 5:44:00 CDT, Duration: 30 day, Stop date: 03/21/18 5:43:00 CDT, FOR ICU USE ONLY Potassium 2018-0 No 20 mEq, Memor ia Chloride 6-11 Route: PO, l 10:44: Drug form: [place] [...] Gluconate 02-19 Route: l 10:44: IVPB, PRN, [place] 00 Dosing Weight 82.8, kg, PRN Abnormal Lab Result, Start date: 02/19/18 5:44:00 CDT, Duration: 30 day, Stop date: 03/21/18 5:43:00 CDT, FOR ICU USE ONLY Magnesium 2018-0 No 2 gm, [facility] Sulfate 02-19 Route: l 10:44: IVPB, PRN, [place] 00 Dosing Weight 82.8, kg, PRN Abnormal Lab Result, Start date: 02/19/18 5:44:00 CDT, Duration: 30 day, Stop date: 03/21/18 5:43:00 CDT, FOR ICU USE ONLY Magnesium 2018-0 No 800 mg, [facility] Oxide 02-19 Route: PO, l 10:44: PRN, [place] 00 Dosing Weight 82.8, kg, PRN Abnormal Lab Result, FOR ICU USE ONLY, Start date: 02/19/18 5:44:00 CDT, Duration: 30 day, Stop date: 03/21/18 5:43:00 CDT potassium 2018-0 No 2 pkt, [facility] a phosphate-s 02-19 Route: PO, l odium 10:44: Dosing [place] phosphate 00 Weight 250 mg-280 82.8, kg, mg-160 mg PRN, PRN oral powder Abnormal for Lab reconstitut Result, ion FOR ICU USE ONLY, Start date: 02/19/18 5:44:00 CDT, Duration: 30 day, Stop date: 03/21/18 5:43:00 CDT Calcium 2018-0 No Notes: [facility] Gluconate 6-11 WASTE: F/P l 09:36: - Sink; E [place] [facility] Calcium No Notes: [...] Chloride 6-11 (Same as: l 09:36: Potassium [place] 00 Chloride) potassium No Notes: [facility] a phosphate-s 6-11 (Same as: l odium 09:36: Phos-NaK) [place] phosphate 00 Each 1.5 250 mg-280 gm pkt has mg-160 mg 250mg oral powder phosphorou for s. Mix reconstitut w/2.5oz ion water and stir. Magnesium No Notes: [facility] a Sulfate 6-11 WASTE: F/P l 09:36: - Sink; E [place] [facility] Magnesium No Notes: [facility] a Oxide 6-11 (Same as: l 09:36: Mag-Ox [place] 00 400) Magnesium oxide 230nv=104t g elemental magnesium Dose=____m g magnesium oxide [...] Memoria Flush 0.9% 6-11 (Same as: l 09:: BD [place] 00 Posiflush) Ondansetron No Notes: Dirk reji 6-11 (Same as: l 09:27: Zofran) MEDICATION WASTE Product Size: 4 mg Product Wasted: ___ mg Bisacodyl No Notes: Memori a 6-11 (Same As: l 09: Dulcolax, [place]yn Bisco-Lax) Acetaminoph No 1 tab, [...] 6-11 not exceed l 09:27: 4 gm/day. (Same as: Tylenol) Acetaminoph No 1 tab, [...] Rate: 50 l 0.9% IV 09:27: ml/hr, [place] 1,000 mL 00 Infuse over: 20 hr, Route: IV, Dosing Weight 82.8 kg, Total Volume: 1,000, Start date: 02/19/18 4:27:00 CDT, Duration: 30 day, Stop date: 03/21/18 4:26:00 CDT, 1.96, m2 Magnesium No 2 gm, Memoria Sulfate 6-11 Route: [...] MG ORAL TAB 6-11 ity of 04:52: [address] 1 Yes None Univer s ORAL TAB 6-11 Entered ity of 04:52: [address] M-VIT ORAL Yes None Univers 6-11 Entered [facility]y [facility] 04:52: [address] Yes prn [facility] MG ORAL TAB 6-11 ity of 04:52: [address] 1 Yes None Univer s ORAL TAB 6-11 Entered ity of 04:52: [address] M-VIT ORAL Yes None Univers 6-11 Entered ity of 04:52: [address] Yes prn [facility] MG ORAL TAB 6-11 ity of 04:52: [address] 1 Yes None Univer s ORAL TAB 6-11 Entered ity of 04:52: [address] M-VIT ORAL Yes None Univers 6-11 Entered ity of 04:52: [address] PEPCID 20 Yes prn Univers MG ORAL TAB 6-11 ity of 04:52: [address] 1 Yes None Univer s ORAL TAB 6-11 Entered ity of 04:52: [address] M-VIT ORAL Yes None Univers 6-11 Entered ity of 04:52: [address] PEPCID 20 Yes prn Univers MG ORAL TAB 6-10 ity of 23:52: [address] 1 Yes None Univer s ORAL TAB 6-10 Entered ity of 23:52: [address] M-VIT ORAL 2018 Yes None Univers 6-10 Entered ity of 23:52: [address] PEPCID 20 Yes prn Univers MG ORAL TAB 6-10 ity of 23:52: [address] B COMPLEX 1 Yes None Univer s ORAL TAB 6-10 Entered ity of 23:52: [address] M-VIT ORAL Yes None Univers 6-10 Entered ity of 23:52: [address] Levetiracet Yes 500 mg = 1 [...] emoria en 6-05 0 l 15:03: Refill(s) [place] 00 nebivolol 5 Yes 30 mg = [...] tab, PO, l tablet 15:03: Daily, 0 [place] 00 Refill(s) Potassium No Notes: Memori a Chloride 6-05 (Same as: l 14:56: K-Dur 20) [place] 00 "Do Not Crush" For patients unable to swallow tablet, dissolve in one half glass of water. Allow about 2 minutes for the tablets to disintegra te. Stir before giving to prepare slurry and administer . Please exclude Patient s with feeding tube less than 14 [place] (Dobhoff, J-tube etc) and pediatric and patients. [...] s with feeding tube less than 14 [place] (Dobhoff, J-tube etc) and pediatric and patients. With food and full glass of water Norvasc No Notes: Memoria 6-04 (Same as: l 14:00: Norvasc) [place] potassium No Notes: Memori a chloride 20 [...] s with feeding tube less than 14 [place] (Dobhoff, J-tube etc) and pediatric and patients. With food and full glass of water Clonidine No Notes: Memori a - (Same As: l 21:00: Catapres) Sodium Yes 3 gm = 3 Memoria Chloride 6-03 tab, [place], l 1000 MG 18:08: TID-Before Herm roxanne Oral Tablet 00 Meals, # 63 tab, 0 Refill(s) Hydralazine Yes PO, Q6H, 0 Memoria Hydrochlori - Refill(s) l de 100 MG 18:08: [place] Oral Tablet 00 amLODIPine No 5 mg = 1 Mem oria 5 mg oral 6-03 tab, PO, l tablet 18:08: Q12H, 0 Refill(s) Insulin No 60 units) Dirk reji regular 02-10 WASTE: F/P l 23:44: - Black; E - mySkin Trash Bin Stable for 28 days at room temperatur e Expires in days from ____Date Glucagon 2018-0 No 1 mg, Memoria 6-02 Route: IM, l 23:44: Drug form: [place] 00 PDR/INJ, PRN, Dosing Weight 82.8, kg, PRN Blood Glucose Results, Start date: 02/10/18 18:44:00 CDT, Duration: 30 day, Stop date: 03/12/18 18:43:00 CDT Dextrose 2018-0 No 25 gm, 50 Dirk reji 50% Syringe 6-02 mL, Route: l 23:44: IVP, Drug [place] 00 Form: INJ, Dosing Weight 82.8, kg, PRN, PRN Blood Glucose Results, Start date: 02/10/18 18:44:00 CDT, Duration: 30 day, Stop date: 03/12/18 18:43:00 CDT Sodium 2018-0 No 3 gm, 3 Memoria Chloride 6-02 tab, l 1000 MG 12:30: Route: [place], Herm roxanne Oral Tablet 00 Drug form: TAB, TID-Before Meals, Dosing Weight 82.8, kg, Start date: 02/10/18 7:30:00 CDT, Duration: 30 day, Stop date: 03/11/18 16:30:00 CDT Potassium 2017-0 No Notes: Memori a Chloride - (Same as: l 1.33 MEQ/ML 23:56: Potassium H ermann Oral 00 Chloride) Solution Hydralazine 2017-0 No Notes: Dirk reji Hydrochlori 6-01 (Same as: l de 50 MG 23:00: Apresoline Her antonio Oral Tablet 00 ) May interfere w/enteral feedings Take With Food. Hydralazine 2018-0 No 100 mg, Mem oria Hydrochlori 6-01 Route: PO, l de 50 MG 21:00: Drug form: Her antonio Oral Tablet 00 TAB, Q8H, Dosing Weight 82.8, kg, Start date: 02/09/18 16:00:00 CDT, Duration: 30 day, Stop date: 03/11/18 8:00:00 CDT Tylenol 2018-0 No Notes: Max Dirk reji 6-01 acetaminop l 18:34: hen = [place] 00 4000mg/day (4 gm/day). (Same as: Tylenol) hydrALAZINE No Notes: Dirk reji 6-01 (Same as: l 13:19: Apresoline [place] 00 ) May interfere w/enteral feedings Take [...] ia 5-31 (Same as: l 14:00: Prinivil, [place] 00 Zestril) Bystolic No Notes: Memoria 5-31 (same as: l 14:00: Bystolic) [place] 00 Nicardipine No Notes: Dirk reji 5-31 Same as: l 08:09: Cardene [place] 00 Concentrat ion: (0.1 mg/ 1 ml) nebivolol No 10 mg = 1 Mem oria 10 MG Oral 531 tab, PO, l Tablet 03:55: Daily, # Austyn [Bystolic] 00 30 tab, 0 Refill(s) Bystolic No PO, Daily, Mem oria 5-31 0 l 03:55: Refill(s) [place] 00 Coreg No Notes: Memoria 5-30 Give with l 22:53: food. [place] 00 (Same As: Coreg) Lisinopril No Notes: Memor ia 5-30 (Same as: l 13:59: Prinivil, [place] 00 Zestril) Insulin No Notes: Memoria Glargine [...] mL, Route: l 13:57: IVP, Drug Austyn Form: INJ, Dosing Weight 82.8, kg, PRN, [...] sodium, 5-30 porcine l porcine 13:00: heparin [place] 2500 UNT/ML 00 Injectable Solution Insulin No [...] 00 Levetiracet No Notes: Dirk reji am -29 (Same l 23:00: as:Keppra) [place] 00 Sodium No 3 gm, 3 Memoria Chloride -29 tab, l 1000 MG 18:00: Route: [place], Herm roxanne Oral Tablet 00 Drug form: TAB, QID, Dosing Weight 82.8, kg, Start date: 02/06/18 13:00:00 CDT, Duration: 30 day, Stop date: 03/08/18 9:00:00 CDT acetaminoph No Notes: Max Memoria en 5-29 acetaminop l 14:48: hen = [place] 00 4000mg/day (4 gm/day). (Same as: Tylenol) Bystolic No Notes: Memoria 5-29 (same as: l 14:00: Bystolic) Protonix No Notes: Memoria 5-29 Tablet l 14:00: should not be chewed or crushed. (Same as: Protonix) Flomax No Notes: [facility]oria 5-29 (Same As: l 14:00: Flomax) "Do Not Crush" Tylenol No 100.4 F, Memor ia 5-29 Start l 13:18: date: 02/06/18 8:18:00 CDT, Duration: 30 day, Stop [...] cap, PO, l Capsule 03:54: Daily [Prozac] 00 gabapentin Yes 300 mg = 1 M emoria 300 MG Oral 5-29 cap, PO, l Capsule 03:54: TID amitriptyli No 100 mg = 1 Memoria ne 100 mg 5-29 tab, PO, l oral tablet 03:54: Bedtime Her antonio pantoprazol Yes 40 mg = 2 M emoria e 20 MG 5-29 tab, PO, l Enteric 03:54: Daily 00 Tablet [Protonix] clopidogrel No 75 mg = 1 M emoria 75 MG Oral 5-29 tab, PO, l Tablet 03:54: Daily [place] [Plavix] 00 Metformin Yes 500 mg = 1 Me moria hydrochlori 5-29 tab, PO, l de 500 MG 03:54: BID-Meals Her antonio Oral Tablet Simvastatin Yes 20 mg = 1 M emoria 20 MG Oral 5-29 tab, PO, l Tablet 03:54: Bedtime [place] [Zocor] nebivolol No 10 mg = 1 Mem oria 10 MG Oral 5-29 tab, PO, l Tablet 03:54: Daily [place] [Bystolic] 00 Tamsulosin Yes 0.4 mg = 1 M emoria hydrochlori 5-29 cap, PO, l de 0.4 MG 03:54: Daily [place] Oral 00 Capsule [Flomax] Omeprazole Yes 20 mg = 1 Me moria 20 MG 5-29 cap, PO, l Enteric 03:54: Daily [place] Coated Capsule [Prilosec] Insulin No 20 unit, Memori a Glargine 5-29 SUB-Q, l 100 UNT/ML 03:54: Bedtime Herm roxanne Injectable Solution [Lantus] Saline No Notes: Memoria Flush 0.9% 5-29 (Same as: l 02:00: BD [place] 00 Posiflush) Docusate No Notes: Memoria 5-29 (Same as: l 02:00: Colace) sennosides, No Notes: Dirk reji LONGTERM 5-29 (Same as: l 02:00: Senokot) Tylenol No Notes: Do Memor ia 5-29 not exceed l 01:30: 4 gm/day. [place] 00 (Same as: Tylenol) Labetalol No 10 [...] Oxide 02-06 (Same as: l 01:25: Mag-Ox [place] 00 400) Magnesium oxide 986iz=479m g elemental magnesium Dose=____m g magnesium oxide [...] stir. potassium No Notes: Memori a phosphate - (Same as: l 01:25: K Phosphate. ) [...] Chloride 5-29 1,000 l 0.9% 01:21: ml/hr, [place] (Bolus) IV 00 Infuse Over: 1 hr, Route: IV, 1,000, Drug form: INJ, ONCE, Priority: STAT, Dosing Weight 80 kg, Start date: 02/05/18 20:21:00 CDT, Stop date: 02/05/18 20:21:00 CDT Sodium 2018- No 1,000 mL, Memori a Chloride 5-29 Rate: 50 l 0.9% IV 01:21: ml/hr, [place] 1,000 mL 00 Infuse over: 20 hr, [...] Regular No 60 units) Dirk reji Insulin, - WASTE: F/P l Human 100 23:05: - Black; E He r[place] UNT/ML 00 - Injectable Municipal Solution Trash Bin Stable for 28 days at room temperatur e Expires in days from ____Date Saline No Notes: Memoria Flush 0.9% -28 (Same as: l 23:05: BD [place] 00 Posiflush) Sodium No 10,000 mL, Memor ia Chloride 02-05 Rate: 50 l 0.9% IV 23:05: ml/hr, [place] [address]80 mL 00 Infuse over: 200 hr, Route: IV, Dosing Weight 80 kg, Total Volume: 10,000, Start date: 02/05/18 18:05:00 CDT, Duration: 30 day, Stop date: 03/07/18 18:04:00 CDT Acetaminoph No Notes: Do M emoria en 325 MG / 02-05 not exceed l Hydrocodone 23:05: 4gm/day of [place] Bitartrate 00 acetaminop 10 MG Oral hen. (Same Tablet as: [place] 325/10) Acetaminoph No Notes: Dirk reji en 325 MG / 02-05 (Same as: l Hydrocodone 23:05: [place] E[place]se nn Bitartrate 00 325/5) Do 5 MG Oral not exceed Tablet 4gm/day of acetaminop hen. Morphine No Notes: Memoria - (Same l 23:05: as:MORPhin [place] 00 e Sulfate) Bisacodyl No Notes: Memori a - (Same As: l 23:05: Dulcolax, [place] 00 Bisco-Lax) Keppra No Notes: Memoria - [...] Daily Medica l MG tablet 00 (1800). [place] lisinopriL 2014-09 Yes 40mg Take [address] (PRINIVIL,Z 2-21 by mouth [facility] ESTRIL) 40 00:00: Daily Medica l MG tablet 00 (1800). [place] lisinopriL 2014-09 Yes 40mg Take [address] (PRINIVIL,Z 2-21 by mouth [facility] ESTRIL) 40 00:00: Daily Medica l MG tablet 00 (1800). [place] lisinopriL 2014-09 Yes 40mg Take [address] (PRINIVIL,Z 2-21 by mouth [facility] ESTRIL) 40 00:00: Daily Medica l MG tablet 00 (1799). [place] lisinopriL 2014-09 Yes 40mg Take [address] (PRINIVIL,Z 2-21 by mouth [facility] ESTRIL) 40 00:00: Daily Medica l MG tablet 00 (1799). [place] lisinopriL 2014-09 Yes 40mg Take [address] (PRINIVIL,Z 2-21 by mouth [facility] s ESTRIL) 40 00:00: Daily Medica l MG tablet 00 (1799). [place] lisinopriL 2014-09 Yes 40mg Take [address] (PRINIVIL,Z 2-21 by mouth [facility] ESTRIL) 40 00:00: Daily Medica l MG tablet 00 (1799). [place] lisinopriL 2014-09 Yes 40mg Take [address] (PRINIVIL,Z 2-21 by mouth [facility] s ESTRIL) 40 00:00: Daily Medica l MG tablet (1799). [place] lisinopriL 2014-09 Yes 40mg Take [address] (PRINIVIL,Z 2-21 by mouth [facility] s ESTRIL) 40 00:00: Daily Medica l MG tablet (1799). [place] lisinopriL 2014-09 Yes 40mg Take [address] (PRINIVIL,Z 2-21 by mouth [facility] s ESTRIL) 40 00:00: Daily Medica l MG tablet 00 (1799). [place] lisinopriL 2014-09 Yes 40mg Take [address] (PRINIVIL,Z 2-21 by mouth Luke s ESTRIL) 40 00:00: Daily Medica l MG tablet 00 (1799). [place] lisinopriL 2014-09 Yes 40mg Take [address] (PRINIVIL,Z 2-21 by mouth [facility] s ESTRIL) 40 00:00: Daily Medica l MG tablet 00 (1799). [place] PROTONIX 40 Yes [id number] 1 tab PO Univers MG ORAL 4-01 daily ity of TBEC 00:00: [place] [facility] PROTONIX 40 2008-0 Yes [id number] 1 tab PO Univers MG ORAL 4-01 daily ity of TBEC 00:00: [place] 00 [facility] PROTONIX 40 2008-0 Yes [id number] 1 tab PO Univers MG ORAL 4-01 daily ity of TBEC 00:00: [place] 00 [facility] PROTONIX 40 2008-0 Yes [id number] 1 tab PO Univers MG ORAL 4-01 daily ity of TBEC 00:00: [place] 00 [facility] PROTONIX 40 2008- Yes [id number] 1 tab PO Univers MG ORAL 4-01 daily ity of TBEC 00:00: [place] 00 [facility] PROTONIX 40 2008-0 Yes [id number] 1 tab PO Univers MG ORAL 4-01 daily ity of TBEC 00:00: [place] 00 [facility] [place] PROTONIX 40 2008-0 2- No [id number] 1 tab PO Univers MG ORAL 4-01 10-15 daily ity of TBEC 00:00: 00:00 [place] 00 :00 [facility] PROTONIX 40 2008-0 2- No [id number] 1 tab PO Univers MG ORAL 4-01 10-15 daily ity of TBEC 00:00: 00:00 [place] 00 :00 [facility] ENALAPRIL 2008-0 Yes [id number] 1 tab po Univers MALEATE 20 1-15 BID ity of MG ORAL TAB 00:00: [place] 00 [facility] ENALAPRIL 2008-0 Yes [id number] 1 tab po Univers MALEATE 20 1-15 BID ity of MG ORAL TAB 00:00: [place] 00 [facility] ENALAPRIL 2008-0 Yes [id number] 1 tab po Univers MALEATE 20 1-15 BID ity of MG ORAL TAB 00:00: [place] 00 [facility] ENALAPRIL 2008-0 Yes [id number] 1 tab po Univers MALEATE 20 1-15 BID ity of MG ORAL TAB 00:00: [place] 00 [facility] ENALAPRIL 2008-0 Yes [id number] 1 tab po Univers MALEATE 20 1-15 BID ity of MG ORAL TAB 00:00: [place] 00 [facility] ENALAPRIL 2008-0 Yes [id number] 1 tab po Univers MALEATE 20 1-15 BID ity of MG ORAL TAB 00:00: [place] 00 [facility] ENALAPRIL 2021- No [id number] 1 tab po [facility] MALEATE 20 1-15 10-15 BID ity of MG ORAL TAB 00:00: 00:00 [place] 00 :00 [facility] ENALAPRIL 2021- No [id number] 1 tab po Univers MALEATE 20 1-15 10-15 BID ity of MG ORAL TAB 00:00: 00:00 [place] 00 :00 [facility] HYDROCHLORO 2007-09 Yes [id number] take 1 po Univers THIAZIDE 25 0-30 daily ity of MG ORAL TAB 00:00: [place] 00 [facility] HYDROCHLORO 2007-09 Yes [id number] take 1 po [facility] THIAZIDE 25 0-30 daily ity of MG ORAL TAB 00:00: [place] 00 [facility] HYDROCHLORO 2007-09 Yes [id number] take 1 po [facility] THIAZIDE 25 0-30 daily ity of MG ORAL TAB 00:00: [place] 00 [facility] HYDROCHLORO 2007-09 Yes [id number] take 1 po [facility] THIAZIDE 25 0-30 daily ity of MG ORAL TAB 00:00: [place] 00 [facility] HYDROCHLORO 2007-09 Yes [id number] take 1 po [facility] THIAZIDE 25 0-30 daily ity of MG ORAL TAB 00:00: [place] 00 [facility] HYDROCHLORO 2007- Yes [id number] take 1 po [facility] THIAZIDE 25 0-30 daily ity of MG ORAL TAB 00:00: [place] 00 [facility] HYDROCHLORO 2007-2021- No [id number] take 1 po [facility] THIAZIDE 25 0-30 10-15 daily ity of MG ORAL TAB 00:00: 00:00 [place] 00 :00 [facility] HYDROCHLORO 2007- 2022- No [id number] take 1 po [facility] THIAZIDE 25 0-30 [...] it y of 00:00: 00:00 tab qpm [place] 00 : [facility] GLIPIZIDE 5 2021- No tske 2 tab [facility] MG ORAL TAB 9- 10- qam and 1 it y of 00:00: 00:00 tab qpm [place] 00 :00 [facility] ATENOLOL Yes [id number] one tab po [facility] 100 MG ORAL 8-27 daily ity of TAB 00:00: [facility] NORCO Yes 1 tab po Univers 7.5-325 MG 8-27 TID ity of ORAL TAB 00:00: [facility] AMITRIPTYLI Yes 2 tabs QHS Univers NE 50 MG 8-27 ity of ORAL TAB 00:00: [facility] METFORMIN Yes [id number] 1 tab PO [facility] 850 MG ORAL 8-27 TID ity of TAB 00:00: [facility] CLONIDINE Yes [id number] take 1 po Univers 0.2 MG ORAL 8-27 qid for 1 ity of TAB 00:00: week, then tid for 1 Medical week, then Branch bid and prn thereafter PRAVASTATIN Yes [id number] take 1 po [facility] 40 MG ORAL 8-27 qhs ity of TAB 00:00: [facility] ATENOLOL Yes [id number] one tab po [facility] 100 MG ORAL 8-27 daily ity of TAB 00:00: [facility] NORCO Yes 1 tab po Univers 7.5-325 MG 8-27 TID ity of ORAL TAB 00:00: [place] [facility] AMITRIPTYLI Yes 2 tabs QHS Univers NE 50 MG 8-27 ity of ORAL TAB 00:00: [place] [facility] METFORMIN Yes [id number] 1 tab PO [facility] 850 MG ORAL 8-27 TID ity of TAB 00:00: [place] [facility] CLONIDINE Yes [id number] take 1 po [facility] 0.2 MG ORAL 8-27 qid for 1 ity of TAB 00:00: week, then [place] 00 tid for 1 Medical week, then Branch bid and prn thereafter PRAVASTATIN Yes [id number] take 1 po [facility] 40 MG ORAL 8-27 qhs ity of TAB 00:00: [facility] ATENOLOL Yes [id number] one tab po [facility] 100 MG ORAL 8-27 daily ity of TAB 00:00: [place] [facility] NORCO Yes 1 tab po Univers 7.5-325 MG 8-27 TID ity of ORAL TAB 00:00: [facility] AMITRIPTYLI Yes 2 tabs QHS Univers NE 50 MG 8-27 ity of ORAL TAB 00:00: [place] [facility] METFORMIN Yes [id number] 1 tab PO [facility] 850 MG ORAL 8-27 TID ity of TAB 00:00: [place] [facility] CLONIDINE Yes [id number] take 1 po [facility] 0.2 MG ORAL 8-27 qid for 1 ity of TAB 00:00: week, then [place] 00 tid for 1 Medical week, then Branch bid and prn thereafter PRAVASTATIN Yes [id number] take 1 po [facility] 40 MG ORAL 8-27 qhs ity of TAB 00:00: [place] [facility] ATENOLOL Yes [id number] one tab po [facility] 100 MG ORAL 8-27 daily ity of TAB 00:00: [place] [facility] NORCO Yes 1 tab po [facility] 7.5-325 MG 8-27 TID ity of ORAL TAB 00:00: [place] [facility] AMITRIPTYLI Yes 2 tabs QHS [facility] NE 50 MG 8-27 ity of ORAL TAB 00:00: [place] [facility] METFORMIN Yes [id number] 1 tab PO [facility] 850 MG ORAL 8-27 TID ity of TAB 00:00: [place] [facility] CLONIDINE Yes [id number] take 1 po Univers 0.2 MG ORAL 8-27 qid for 1 ity of TAB 00:00: week, then [place] 00 tid for 1 Medical week, then Branch bid and prn thereafter PRAVASTATIN Yes [id number] take 1 po [facility] 40 MG ORAL 8-27 qhs ity of TAB 00:00: [place] [facility] ATENOLOL Yes [id number] one tab po [facility] 100 MG ORAL 8-27 daily ity of TAB 00:00: [place] [facility] NORCO Yes 1 tab po [facility] 7.5-325 MG 8-27 TID ity of ORAL TAB 00:00: [facility] AMITRIPTYLI Yes 2 tabs QHS [facility] NE 50 MG 8-27 ity of ORAL TAB 00:00: [place] [facility] METFORMIN 2007- Yes [id number] 1 tab PO [facility] 850 MG ORAL 8-27 TID ity of TAB 00:00: [place] [facility] CLONIDINE Yes [id number] take 1 po [facility] 0.2 MG ORAL 8-27 qid for 1 ity of TAB 00:00: week, then [place] 00 tid for 1 Medical week, then Branch bid and prn thereafter PRAVASTATIN Yes [id number] take 1 po [facility] 40 MG ORAL 8-27 qhs ity of TAB 00:00: [place] [facility] ATENOLOL Yes [id number] one tab po [facility] 100 MG ORAL 8-27 daily ity of TAB 00:00: [place] [facility] NORCO Yes 1 tab po Univers 7.5-325 MG 8-27 TID ity of ORAL TAB 00:00: [place] [facility] AMITRIPTYLI Yes 2 tabs QHS Univers NE 50 MG 8-27 ity of ORAL TAB 00:00: [place] [facility] METFORMIN 2007- Yes [id number] 1 tab PO Univers 850 MG ORAL 8-27 TID ity of TAB 00:00: [place] [facility] CLONIDINE 2007- Yes [id number] take 1 po Univers 0.2 MG ORAL 8-27 qid for 1 ity of TAB 00:00: week, then [place] 00 tid for 1 Medical week, then Branch bid and prn thereafter PRAVASTATIN Yes [id number] take 1 po [facility] 40 MG ORAL 8-27 qhs ity of TAB 00:00: [place] 00 [facility] ATENOLOL 2021- No [id number] one tab po [facility] 100 MG ORAL [...] 00 :00 [facility] METFORMIN 2007-2021- No [id number] 1 tab PO Univers 850 MG ORAL 8-27 10-15 TID ity of TAB 00:00: 00:00 [place] 00 :00 [facility] CLONIDINE 2007-2021- No [id number] take 1 po Univers 0.2 MG ORAL 8-27 10-15 qid for 1 it y of TAB 00:00: 00:00 week, then [place] 00 :00 tid for 1 Medical week, then Branch bid and prn thereafter PRAVASTATIN 2021- No [id number] take 1 po [facility] 40 MG ORAL 8-27 10-15 qhs ity of TAB 00:00: 00:00 [place] 00 :00 [facility] ATENOLOL 2007-2021- No [id number] one tab po Univers 100 MG ORAL [...] 00 :00 [facility] METFORMIN 2007-2021- No [id number] 1 tab PO Univers 850 MG ORAL 8-27 10-15 TID ity of TAB 00:00: 00:00 [place] 00 :00 [facility] CLONIDINE 2007-0 2021- No [id number] take 1 po Univers 0.2 MG ORAL 8-27 10-15 qid for 1 it y of TAB 00:00: 00:00 week, then [place] 00 :00 tid for 1 Medical week, then Branch bid and prn thereafter PRAVASTATIN 2007-2021- No [id number] take 1 po Univers 40 MG ORAL 8-27 10-15 qhs ity of TAB 00:00: 00:00 [place] 00 :00 [facility] CLONIDINE 2007-0 Yes [id number] 1 tab tid Univers 0.3 MG ORAL 4-30 and prn ity o f TAB 00:00: [facility] CLONIDINE 2007- Yes [id number] 1 tab tid Univers 0.3 MG ORAL 4-30 and prn ity o f TAB 00:00: [place] 00 [facility] CLONIDINE 2007-0 Yes [id number] 1 tab tid Univers 0.3 MG ORAL 4-30 and prn ity o f TAB 00:00: [place] 00 [facility] CLONIDINE 2007-0 Yes [id number] 1 tab tid Univers 0.3 MG ORAL 4-30 and prn ity o f TAB 00:00: [place] 00 [facility] CLONIDINE 2007-0 Yes [id number] 1 tab tid Univers 0.3 MG ORAL 4-30 and prn ity o f TAB 00:00: [place] 00 [facility] CLONIDINE 2007-0 Yes [id number] 1 tab tid Univers 0.3 MG ORAL 4-30 and prn ity o f TAB 00:00: [facility] CLONIDINE 2007-0 2021- No [id number] 1 tab tid Univers 0.3 MG ORAL 4-30 10-15 and prn ity of TAB 00:00: 00:00 [place] 00 :00 [facility] CLONIDINE 2007-0 2021- No [id number] 1 tab tid Univers 0.3 MG ORAL 4-30 10-15 and prn ity of TAB 00:00: 00:00 [place] 00 :00 [facility] ASPIRIN 325 2006- Yes [id number] 1 tab U nivers MG ORAL TAB 0-04 daily ity of 00:00: [place] [facility] ASPIRIN 325 2006- Yes [id number] 1 tab U nivers MG ORAL TAB 0-04 daily ity of 00:00: [place] 00 [facility] ASPIRIN 325 2006- Yes [id number] 1 tab U nivers MG ORAL TAB 0-04 daily ity of 00:00: [place] 00 [facility] ASPIRIN 325 2006- Yes [id number] 1 tab U nivers MG ORAL TAB 0-04 daily ity of 00:00: [place] 00 [facility] ASPIRIN 325 2006- Yes [id number] 1 tab U nivers MG ORAL TAB 0-04 daily ity of 00:00: [place] [facility] ASPIRIN 325 2006- Yes [id number] 1 tab U nivers MG ORAL TAB 0-04 daily ity of 00:00: [place] [facility] ASPIRIN 325 2006-2021- No [id number] 1 tab Univers MG ORAL TAB 0-04 10-15 daily ity of 00:00: 00:00 [place] 00 :00 [facility] ASPIRIN 325 2006-2021- No [id number] 1 tab Univers MG ORAL TAB 0-04 10-15 daily ity of 00:00: 00:00 [place] 00 :00 [facility] Immunizations Ordered Filled Immunization Date Status Comments [facility] e Immunization Name Name Influenza Virus 2007-06-20 Completed Universit y of Vaccine 00:00:00 [facility] Influenza Virus 2007-06-20 Completed Universit y of Vaccine 00:00:00 [facility] Influenza Virus 2007-06-20 Completed Universit y of Vaccine 00:00:00 [facility] Influenza Virus 2007-06-20 Completed Universit y of Vaccine 00:00:00 [facility] Influenza Virus 2007-06-20 Completed Universit y of Vaccine 00:00:00 [facility] Influenza Virus 2007-06-20 Completed Universit y of Vaccine 00:00:00 [facility] Influenza Virus 2007-06-20 Completed Universit y of Vaccine 00:00:00 [facility] Influenza Virus 2007-06-20 Completed Universit y of Vaccine 00:00:00 [facility] Influenza Virus 2007-06-20 Completed Universit y of Vaccine 00:00:00 [facility] Influenza Virus 2007-06-20 Completed Universit y of Vaccine 00:00:00 [facility] Influenza Virus 2007-06-20 Completed Universit y of Vaccine 00:00:00 [facility] Influenza Virus 2007-06-20 Completed Universit y of Vaccine 00:00:00 [facility] Influenza Virus 2007-06-20 Completed Universit y of Vaccine 00:00:00 [facility] Influenza Virus 2007-06-20 Completed Universit y of Vaccine 00:00:00 [facility] Influenza Virus 2007-06-20 Completed Universit y of Vaccine 00:00:00 [facility] Influenza Virus 2007-06-20 Completed Universit y of Vaccine 00:00:00 [facility] Influenza Virus 2007-06-20 Completed Universit y of Vaccine 00:00:00 [facility] Influenza Virus 2007-06-20 Completed Universit y of Vaccine 00:00:00 [facility] Influenza Virus 2007-06-20 Completed Universit y of Vaccine 00:00:00 [facility] Influenza Virus 2007-06-20 Completed Universit y of Vaccine 00:00:00 [facility] Influenza Virus 2007-06-20 Completed Universit y of Vaccine 00:00:00 [facility] Influenza Virus 2007-06-20 Completed Universit y of Vaccine 00:00:00 [facility] Influenza Virus 2007-06-20 Completed Universit y of Vaccine 00:00:00 [facility] Influenza Virus 2007-06-20 Completed Universit y of Vaccine 00:00:00 [facility] Influenza Virus 2007-06-20 Completed Universit y of Vaccine 00:00:00 [facility] Influenza Virus 2007-06-20 Completed Universit y of Vaccine 00:00:00 [facility] Influenza Virus 2006-07-26 Completed Universit y of Vaccine 00:00:00 [facility] Influenza Virus 2006-07-26 Completed Universit y of Vaccine 00:00:00 [facility] Influenza Virus 2006-07-26 Completed Universit y of Vaccine 00:00:00 [facility] Influenza Virus 2006-07-26 Completed Universit y of Vaccine 00:00:00 [facility] Influenza Virus 2006-07-26 Completed Universit y of Vaccine 00:00:00 [facility] Influenza Virus 2006-07-26 Completed Universit y of Vaccine 00:00:00 [facility] Influenza Virus 2006-07-26 Completed Universit y of Vaccine 00:00:00 [facility] Influenza Virus 2006-07-26 Completed Universit y of Vaccine 00:00:00 [facility] Influenza Virus 2006-07-26 Completed Universit y of Vaccine 00:00:00 [facility] Influenza Virus 2006-07-26 Completed Universit y of Vaccine 00:00:00 [facility] Influenza Virus 2006-07-26 Completed Universit y of Vaccine 00:00:00 [facility] Influenza Virus 2006-07-26 Completed Universit y of Vaccine 00:00:00 [facility] Influenza Virus 2006-07-26 Completed Universit y of Vaccine 00:00:00 [facility] Influenza Virus 2006-07-26 Completed Universit y of Vaccine 00:00:00 [facility] Influenza Virus 2006-07-26 Completed Universit y of Vaccine 00:00:00 [facility] Influenza Virus 2006-07-26 Completed Universit y of Vaccine 00:00:00 [facility] Influenza Virus 2006-07-26 Completed Universit y of Vaccine 00:00:00 [facility] Influenza Virus 2006-07-26 Completed Universit y of Vaccine 00:00:00 [facility] Influenza Virus 2006-07-26 Completed Universit y of Vaccine 00:00:00 [facility] Influenza Virus 2006-07-26 Completed Universit y of Vaccine 00:00:00 [facility] Influenza Virus 2006-07-26 Completed Universit y of Vaccine 00:00:00 [facility] Influenza Virus 2006-07-26 Completed Universit y of Vaccine 00:00:00 [facility] Influenza Virus 2006-07-26 Completed Universit y of Vaccine 00:00:00 [facility] Influenza Virus 2006-07-26 Completed Universit y of Vaccine 00:00:00 [facility] Influenza Virus 2006-07-26 Completed Universit y of Vaccine 00:00:00 [facility] Influenza Virus 2006-07-26 Completed Universit y of Vaccine 00:00:00 [facility] Vital Signs Vital Name Observation Time Observation Value Comments Source WEIGHT 2020-03-24 76.658 kg 00:00:00 Systolic blood 2022-11-01 129 mm[Hg] University of pressure 17:28:00 [facility] Diastolic blood 2022-11-01 80 mm[Hg] [place] o f pressure 17:28:00 [facility] Heart rate 2022-11-01 77 /min [facility] 17:28:00 [facility] Body temperature 2022-11-01 36.67 Sindhu [facility] 17:28:00 [facility] Respiratory rate 2022-11-01 20 /min University of 17:28:00 [facility] Oxygen saturation 2022-11-01 94 /min [facility] Arterial blood 17:28:00 [facility] by Pulse oximetry [place] Body weight 2022-10-31 77.1 kg University of 14:00:00 [facility] BMI 2022-10-31 29.18 kg/m2 University of 14:00:00 [facility] Systolic blood 2022-10-08 139 mm[Hg] University of pressure 15:29:00 [facility] Diastolic blood 2022-10-08 85 mm[Hg] University o f pressure 15:29:00 [facility] Heart rate 2022-10-08 72 /min University of 15::00 [facility] Body temperature 2022-10-08 35.56 Sindhu University of 15:29:00 [facility] Respiratory rate 2022-10-08 22 /min University of 15::00 [facility] Oxygen saturation 2022-10-08 96 /min [facility] Arterial blood 15::00 [facility] by Pulse oximetry [place] Body height 2022-10-06 162.6 cm University of :03:00 [facility] Body weight 2022-10-06 78.926 kg University of 22:03:00 [facility] BMI 2022-10-06 29.87 kg/m2 University of 22:03:00 [facility] Body weight 2022-09-30 70.308 kg University of 17:27:00 [facility] BMI 2022-09-30 29.87 kg/m2 University of 17:27:00 [facility] Systolic blood 2022-08-03 137 mm[Hg] University of pressure 19::00 [facility] Diastolic blood 2022-08-03 68 mm[Hg] University o f pressure 19:29:00 [facility] Heart rate 2022-08-03 75 /min University of 19::00 [facility] Body temperature 2022-08-03 36.11 Sindhu University of 19:29:00 [facility] Respiratory rate 2022-08-03 16 /min University of 19:29:00 [facility] Body height 2022-08-03 162.6 cm University of 19:29:00 [facility] Body weight 2022-08-03 70.308 kg University of 19:29:00 [facility] BMI 2022-08-03 26.61 kg/m2 University of 19:29:00 [facility] Systolic blood 2022-06-25 150 mm[Hg] University of pressure 16:28:00 [facility] Diastolic blood 2022-06-25 92 mm[Hg] University o f pressure 16:28:00 [facility] Heart rate 2022-06-25 102 /min University of 16:28:00 [facility] Body temperature 2022-06-25 36.5 Sindhu University of 16:28:00 [facility] Respiratory rate 2022-06-25 20 /min University of 16:28:00 [facility] Oxygen saturation 2022-06-25 91 /min University of in Arterial blood 16:28:00 [facility] by Pulse oximetry Branch Body weight 2022-06-21 71.215 kg University of 15:26: [facility] BMI 2022-06-21 26.13 kg/m2 University of 15::00 [facility] Body height 2022-06-20 165.1 cm University of 18:31:00 [facility] Systolic blood 2022-06-24 184 mm[Hg] University of pressure 12:28:00 [facility] [place] [facility] bedside Diastolic blood 2022-06-24 105 mm[Hg] dr Hernandez o f pressure 12:28:00 [facility] [place] [facility] bedside Heart rate 2022-06-24 79 /min University of 12:28:00 [facility] Body temperature 2022-06-24 36.5 Sindhu University of 12:28:00 [facility] Respiratory rate 2022-06-24 20 /min University of 12:28:00 [facility] Oxygen saturation 2022-06-24 95 /min University of in Arterial blood 12:28:00 [facility] by Pulse oximetry [place] Body weight 2022-06-21 71.215 kg University of 15::00 [facility] BMI 2022-06-21 26.13 kg/m2 University of 15:26:00 [facility] Body height 2022-06-20 165.1 cm University of 18:31:00 [facility] Systolic blood 2021-05-11 156 mm[Hg] University of pressure 01:25:00 [facility] Diastolic blood 2021-05-11 77 mm[Hg] University o f pressure 01:25:00 [facility] Heart rate 2021-05-11 65 /min University of 01:25:00 [facility] Body temperature 2021-05-11 36.94 Sindhu University of 01:25:00 [facility] Respiratory rate 2021-05-11 18 /min University 01:25:00 [facility] Oxygen saturation 2021-05-11 96 /min [facility] in Arterial blood 01:25:00 [facility] by Pulse oximetry [place] Body weight 2021-05-10 68.04 kg University 12:50:00 [facility] WEIGHT 2020-03-24 76.658 kg 00:00:00 Systolic (mm Hg) 2018[facility]02-27 [facility] 18:06:00 Diastolic (mm Hg) 2018-02-27 [facility] 18:06:00 Heart Rate 2018-02-27 [facility] 18:06:00 Temperature Oral 2018-02-27 99.4 F [facility] Ishan rmann (F) 18:06:00 Respitory Rate 2018-02-27 [facility] 18:06:00 Systolic (mm Hg) 2018-02-27 [facility] 12:34:00 Diastolic (mm Hg) 2018-02-27 [facility] 12:34:00 Respitory Rate 2018-02-27 [facility] 12:34:00 Temperature Oral 2018-02-27 97.8 F [facility] Ishan rmann (F) 12:34:00 Heart Rate 2018-02-27 [facility] 12:34:00 Heart Rate 2018-02-27 [facility] 09:19:00 Temperature Oral 2018-02-27 98.1 F [facility] Ishan rmann (F) 09:19:00 Respitory Rate 2018-02-27 [facility] 09:19:00 Systolic (mm Hg) 2018-02-27 [facility] 09:19:00 Diastolic (mm Hg) 2018-02-27 [facility] 09:19:00 BMI Calculated 2018-02-19 [facility] 11:09:00 Weight 2018-02-19 [facility] 11:09:00 Height 2018-02-19 162.56 cm [facility] 11:09:00 Temperature Oral 2018-02-13 96.8 F [facility] Ishan rmann (F) 14:30:00 Systolic (mm Hg) 2018-02-13 [facility] 14:30:00 Diastolic (mm Hg) 2018-02-13 [facility] 14:30:00 Respitory Rate 2018-02-13 [facility] 14:30:00 Heart Rate 2018-02-13 [facility] 14:30:00 Respitory Rate 2018-02-13 [facility] 09:30:00 Systolic (mm Hg) 2018-02-13 [facility] Ishan rmann 09:30:00 Diastolic (mm Hg) 2018-02-13 [facility] [...] 2022-11-11 Doctor Unassigned, Universit y of 06:01:00 [place] [facility] EXTERNAL PROVIDER RECORDS 2022-11-10 Doctor Unassigned, Uni versity of 06:01:00 [place] [facility] COVID-19 (ID NOW RAPID 2022-11-[address] [facility] y of TESTING) 19:31:00 [facility] POCT GLUCOSE (AUTOMATED) 2022-11-01 Jarvis Milligan Univers ity of 17:45:00 [facility] POCT GLUCOSE (AUTOMATED) 2022-11-01 Jarvis Milligan Univers ity of 13:54:00 [facility] POCT GLUCOSE (AUTOMATED) 2022-11-01 Jarvis Milligan Univers ity of 01:54:00 [facility] POCT GLUCOSE (AUTOMATED) 2022-10-31 Chel Jarvis Univers ity of 22:16:00 [facility] POCT GLUCOSE (AUTOMATED) 2022-10-31 Chel Jarvis Univers ity of 17:38:00 [facility] POCT GLUCOSE (AUTOMATED) 2022-10-31 Chel Jarvis Univers ity of 14:35:00 [facility] POCT GLUCOSE (AUTOMATED) 2022-10-31 Chel Jarvis Univers ity of 03:26:00 [facility] POCT GLUCOSE (AUTOMATED) 2022-10-30 Chel Jarvis Univers ity of 17:29:00 [facility] POCT GLUCOSE (AUTOMATED) 2022-10-30 Chel Jarvis Univers ity of 13:45:00 [facility] CBC WITHOUT DIFF 2022-10-30 Abdirashid [facility] of 10:52:00 [facility] POCT GLUCOSE (AUTOMATED) 2022-10-30 Chel Jarvis Univers ity of 01:54:00 [facility] POCT GLUCOSE (AUTOMATED) 2022-10-29 Chel Jarvis Univers ity of 22:49:00 [facility] POCT GLUCOSE (AUTOMATED) 2022-10-29 Chel Jarvis Univers ity of 17:47:00 [facility] POCT GLUCOSE (AUTOMATED) 2022-10-29 Chel Jarvis Univers ity of 13:45:00 [facility] POCT GLUCOSE (AUTOMATED) 2022-10-29 Jarvis Milligan Univers ity of 02:03:00 [facility] POCT GLUCOSE (AUTOMATED) 2022-10-28 Chel Jarvis Univers ity of 23:28:00 [facility] POCT GLUCOSE (AUTOMATED) 2022-10-28 Chel Jarvis Univers ity of 18:24:00 [facility] POCT GLUCOSE (AUTOMATED) 2022-10-28 Chel Jarvis Univers ity of 14:36:00 [facility] BASIC METABOLIC PANEL (NA, K, 2022-10-28 [facility] of CL, CO2, GLUCOSE, BUN, 10:14:00 [facility] ical CREATININE, [place]) Branch CBC WITH DIFF 2022-10-28 [facility] of 10:14:00 [facility] POCT GLUCOSE (AUTOMATED) 2022-10-28 ChelJarvis Univers ity of 02:04:00 [facility] POCT GLUCOSE (AUTOMATED) 2022-10-27 Jarvis Milligan Univers ity of 22:35:00 [facility] POCT GLUCOSE (AUTOMATED) 2022-10-27 ChelJarvis Univers ity of 17:33:00 [facility] POCT GLUCOSE (AUTOMATED) 2022-10-27 Jarvis Milligan Univers ity of 14:41:00 [facility] POCT GLUCOSE (AUTOMATED) 2022-10-27 ChelJarvis Univers ity of 03:31:00 [facility] POCT GLUCOSE (AUTOMATED) 2022-10-26 Raul Rosen Univer sity of 22:30:00 [facility] POCT GLUCOSE (AUTOMATED) 2022-10-26 Raul Rosen Univer sity of 17:32:00 [facility] POCT GLUCOSE (AUTOMATED) 2022-10-26 Raul Rosen Univer sity of 13:26:00 [facility] BASIC METABOLIC PANEL (NA, K, 2022-10-26 [facility] of CL, CO2, GLUCOSE, BUN, 11:36:00 [facility] ical CREATININE, [place]) Branch CBC WITH DIFF 2022-10-26 [facility] of 11:36:00 [facility] MAGNESIUM 2022-10-26 [facility] of 02:30:00 [facility] BASIC METABOLIC PANEL (NA, K, 2022-10-26 [facility] of CL, CO2, GLUCOSE, BUN, 02:30:00 [facility] ical CREATININE, [place]) Branch POCT GLUCOSE (AUTOMATED) 2022-10-26 Raul Rosen Univer sity of 01:48:00 [facility] POCT GLUCOSE (AUTOMATED) 2022-10-25 Raul Rosen Univer sity of 22:14:00 [facility] POCT GLUCOSE (AUTOMATED) 2022-10-25 Raul Rosen Univer sity of 17:33:00 [facility] ROSIO AURIS SURVEILLANCE BY 2022-10-25 Aleksandr Borja Un iversity of PCR (INFECTION CONTROL 15:47:00 [facility] PURPOSES) Branch POCT GLUCOSE (AUTOMATED) 2022-10-25 Raul Rosen [facility] sity of 14:25:00 [facility] POCT GLUCOSE (AUTOMATED) 2022-10-25 Raul Rosen [facility] sity of 13:36:00 [facility] CT ANGIOGRAM HEAD 2022-10-25 Liza Quiroz of 10:18:30 [facility] CT HEAD WO CONTRAST 2022-10-25 Nini Mendenhall [place] of 10:18:30 [facility] CT ANGIOGRAM NECK 2022-10-25 Liza Quiroz [place] of 10:18:30 [facility] BASIC METABOLIC PANEL (NA, K, 2022-10-25 Nini Mendenhall niversity of CL, CO2, GLUCOSE, BUN, 09:42:00 [facility] CREATININE, [place]) Branch CBC WITH DIFF 2022-10-25 Nini Mendenhall [place] of 09:42:00 [facility] PROTHROMBIN TIME / INR 2022-10-25 Abdirashid [facility] ty of 09:42:00 [facility] ACTIVATED PARTIAL THRMPLAS 2022-10-[address] [facility] ersity of ANUSHA 09:42:00 [facility] FIBRINOGEN 2022-10-25 Abdirashid [facility] of 09:42:00 [facility] XR ELBOW <3 VW LEFT 2022-10-25 Liza Quiroz o f 02:12:03 [facility] XR SHOULDER <2 VW LEFT 2022-10-25 Liza Quiroz y of 02:12:03 [facility] XR WRIST 3+ VW LEFT 2022-10-25 Liza Quiroz o f 02:12:03 [facility] CT HEAD WO CONTRAST 2022-10-25 Liza Quiroz o f 01:45:02 [facility] URINE CULTURE 2022-10-25 Liza Quiroz of 00:42:00 [facility] HB ECG ROUTINE & RHYTHM STRIP 2022-10-25 Ebrahim, Rania Un iversity of 00:38:10 [facility] URINALYSIS 2022-10-25 [facility] 00:32[facility]00 [facility] LIPASE 2022-10-25 Liza Quiroz [place] of 00:12:00 [facility] MAGNESIUM 2022-10-25 [facility] 00:12:00 [facility] TROPONIN I 2022-10-25 [facility] 00:12:00 [facility] COMP. METABOLIC PANEL (85537) 2022-10-25 Liza Quiroz iversity of 00:12:00 [facility] CBC WITH DIFF 2022-10-25 [facility] 00:12:00 [facility] PROTHROMBIN TIME / INR 2022-10-25 [facility] of 00:12:00 [facility] N-TERMINAL PRO-BNP 2022-10-25 [facility] 00:12:00 [facility] EMERGENCY DEPARTMENT 2022-10-24 Doctor Unassigned, Universi ty of DOCUMENTS 06:01:00 [place] [facility] COVID-19 (ID NOW RAPID 2022-10-08 [facility] y of TESTING) 14:58:00 [facility] COVID-19 (ID NOW RAPID 2022-10-08 [facility] y of TESTING) 14:58:00 [facility] LAB ONLY COVID INTERPRETATION 2022-10-08 Adelaide Grossman Un iversity of 14:58:00 [facility] POCT GLUCOSE (AUTOMATED) 2022-10-08 Bryan, [facility] ity of 14:55:00 [facility]) 2022-10-08 Bryan, Univers ity of 14:55:00 [facility] POCT GLUCOSE (AUTOMATED) 2022-10-08 Bryan, Univers ity of 03:51:00 [facility] POCT GLUCOSE (AUTOMATED) 2022-10-08 Bryan, Univers ity of 03:51:00 [facility] POCT GLUCOSE (AUTOMATED) 2022-10-08 [facility] 03:10:00 [facility] POCT GLUCOSE (AUTOMATED) 2022-10-08 [facility] 03:10:00 [facility] COVID-19 (ID NOW RAPID 2022-10-07 [facility] y of TESTING) 20:42:00 [facility] LAB ONLY COVID INTERPRETATION 2022-10-07 Adelaide Grossman Un iversity of 20:42:00 [facility] COVID-19 (ID NOW RAPID 2022-10-07 [facility] y of TESTING) 20:42:00 [facility] LAB ONLY COVID INTERPRETATION 2022-10-07 Adelaide Grossman Un iversity of 20:42:00 [facility] HB ECG ROUTINE & RHYTHM STRIP 2022-10-07 Bryan, Un iversity of 14:09:51 [facility] HB ECG ROUTINE & RHYTHM STRIP 2022-10-07 Bryan, Un iversity of 14:09:51 [facility] MAGNESIUM 2022-10-07 [facility] 11:05:00 [facility] BASIC METABOLIC PANEL (NA, K, 2022-10-07 Adelaide Grossman Un iversity of CL, CO2, GLUCOSE, BUN, 11:05:00 [place] [facility] CREATININE[place]) Branch CBC WITH DIFF 2022-10-07 Chaun[facility]y [facility] of 11:05:00 [facility] MAGNESIUM 2022-10-07 Chauncey [facility] of 11:05:00 [facility] BASIC METABOLIC PANEL (NA, K, 2022-10-07 Adelaide Grossman Un iversity of CL, CO2, GLUCOSE, BUN, 11:05:00 [place] [facility] CREATININE, [place]) Branch CBC WITH DIFF 2022-10-07 [facility] of 11:05:00 [facility] CT HEAD WO CONTRAST 2022-10-06 [facility] o f 21:38:43 [facility] CT HEAD WO CONTRAST 2022-10-06 [facility] o f 21:38:43 [facility] XR CHEST 1 VW 2022-10-06 [facility]00 [facility] XR CHEST 1 VW 2022-10-06 [facility] 18:00[facility]00 [facility] CARDIAC CATHETERIZATION 2022-10-06 [facility], [facility] 15:30:17 [facility] ELECTROPHYSIOLOGY PROCEDURE 2022-10-06 Bryan, [facility] ersity of 15:30:17 [facility] ELECTROPHYSIOLOGY PROCEDURE 2022-10-06 Bryan, [facility] ersity of 15:30:17 [facility] CARDIAC [facility]HETER[facility]ATION 2022-10-06 Bryan, [facility] of 15:30:17 [facility] ELECTROPHYSIOLOGY PROCEDURE 2022-10-06 Bryan, [facility] ersity of 15:30:17 [facility] ELECTROPHYSIOLOGY PROCEDURE 2022-10-06 Bryan, [facility] ersity of 15:30:17 [facility] CBC WITH DIFF 2022-10-03 [facility] 17:03:00 [facility] PROTHROMBIN TIME / IN[facility] 2022[facility]10-[facility] 17:03[facility]00 [facility] HB ECG ROUTINE & RHYTHM STRIP 2022-08-03 Bryan iversity of 19:36:45 [facility] ASSIGNMENT OF BENEFITS 2022-08-03 Doctor Unassigned, Univer sity of 17:21:11 [place] [facility] EXTERNAL PROVIDER RECORDS 2022-07-07 Doctor Unassigned, Uni versity of 05:01:00 [place] [facility] POCT GLUCOSE (AUTOMATED) 2022-06-25 Alverto [facility] ersity of 17:11:00 [facility] POCT GLUCOSE (AUTOMATED) 2022-06-25 Alverto [facility] ersity of 17:11:00 [facility] POCT GLUCOSE (AUTOMATED) 2022-06-25 Alverto [facility] ersity of 14:07:00 [facility] POCT GLUCOSE (AUTOMATED) 2022-06-25 Alverto [facility] ersity of 14:07:00 [facility] MAGNESIUM 2022-06-25 iGta [facility] of 10:22:00 [facility] BASIC METABOLIC PANEL (NA, K, 2022-06-25 Marlys Pelayoah Un iversity of CL, CO2, GLUCOSE, BUN, 10:22:00 [place] [facility] CREATININE[place]) Branch CBC WITHOUT DIFF 2022-06-25 [facility] 10:22:00 [facility] MAGNESIUM 2022-06-25 Gita [facility] of 10:22:00 [facility] BASIC METABOLIC PANEL (NA, K, 2022-06-25 Gita Michelle Un iversity of CL, CO2, GLUCOSE, BUN, 10:22:00 [place] [facility] CREATININE[place]) Branch CBC WITHOUT DIFF 2022-06-25 Gita [facility] of 10:22:00 [facility] POCT GLUCOSE (AUTOMATED) 2022-06-25 [facility] of 01:29:00 [facility] POCT GLUCOSE (AUTOMATED) 2022-06-25 Alverto [facility] ersity of 01:29:00 [facility] POCT GLUCOSE (AUTOMATED) 2022-06-24 [facility], [facility] ersity of 22:20:00 [facility] POCT GLUCOSE (AUTOMATED) 2022-06-24 [facility] ersity of 22:20:00 [facility] POCT GLUCOSE (AUTOMATED) 2022-06-24 [facility], [facility] ersity of 18:06:00 [facility] POCT GLUCOSE (AUTOMATED) 2022-06-24 [facility] ersity of 18:06:00 [facility] CBC WITHOUT DIFF 2022-06-24 Gita [facility] of 17:27:00 [facility] CBC WITHOUT DIFF 2022-06-24 Gita [facility] of 17:27:00 [facility] MAGNESIUM 2022-06-24 Gita [facility] of 17:26:00 [facility] BASIC METABOLIC PANEL (NA, K, 2022-06-24 Marlys Pelayoah Un iversity of CL, CO2, GLUCOSE, BUN, 17:26:00 [place] [facility] ical CREATININE, CA) Branch MAGNESIUM 2022-06-24 [place], [facility] of 17:26:00 [facility] BASIC METABOLIC PANEL (NA, K, 2022-06-24 edwina [facility] iversity of CL, CO2, GLUCOSE, BUN, 17:26:00 [facility] ical CREATININE, CA) Branch ELECTROPHYSIOLOGY PROCEDURE 2022-06-24 [facility] ersity of 13:36:26 [facility] ELECTROPHYSIOLOGY PROCEDURE 2022-06-24 [facility] ersity of 13:36:26 [facility] POCT GLUCOSE (AUTOMATED) 2022-06-24 Alverto [facility] ersity of 13:01:00 [facility] POCT GLUCOSE (AUTOMATED) 2022-06-24 Acacia [facility] ersity of 13:01:00 [facility] POCT GLUCOSE (AUTOMATED) 2022-06-24 [place], [place] versity of 03:58:00 [facility] POCT GLUCOSE (AUTOMATED) 2022-06-24 Low, [place] Uni versity of 03:58:00 [facility] URINALYSIS 2022-06-23 [facility] of 22:59:00 [facility] URINALYSIS 2022-06-23 [facility] of 22:59:00 [facility] POCT GLUCOSE (AUTOMATED) 2022-06-23 Low, Ca [place] Uni versity of 22:38:00 [facility] POCT GLUCOSE (AUTOMATED) 2022-06-23 Low, Ca [place] Uni versity of 22:38:00 [facility] POCT GLUCOSE (AUTOMATED) 2022-06-23 Low, Ca [place] Uni versity of 17:07:00 [facility] POCT GLUCOSE (AUTOMATED) 2022-06-23 Low, [place] Uni versity of 17:07:00 [facility] POCT GLUCOSE (AUTOMATED) 2022-06-23 Low, Ca [place] Uni versity of 12:31:00 [facility] POCT GLUCOSE (AUTOMATED) 2022-06-23 Low, [place] Uni versity of 12:31:00 [facility] MAGNESIUM 2022-06-23 Gita [facility] of 09:22:00 [facility] BASIC METABOLIC PANEL (NA, K, 2022-06-23 Verenicekylilli [place] [facility] iversity of CL, CO2, GLUCOSE, BUN, 09:22:00 [place] [facility] CREATININE, [place]) Branch CBC WITHOUT DIFF 2022-06-23 Gita [facility] of 09:22:00 [facility] MAGNESIUM 2022-06-23 [facility] of 09:22:00 [facility] BASIC METABOLIC PANEL (NA, K, 2022-06-23 [facility] [place] [facility] iversity of CL, CO2, GLUCOSE, BUN, 09:22:00 [place] [facility] CREATININE, CA) Branch CBC WITHOUT DIFF 2022-06-23 [facility] of 09:22:00 [facility] HB ECG ROUTINE & RHYTHM STRIP 2022-06-23 Fawad [facility] of 04:21:59 [facility] HB ECG ROUTINE & RHYTHM STRIP 2022-06-23 Adamms [facility] of 04:21:59 [facility] POCT GLUCOSE (AUTOMATED) 2022-06-23 [place], [place] Uni versity of 02:30:00 [facility] POCT GLUCOSE (AUTOMATED) 2022-06-23 Low, [place] Uni versity of 02:30:00 [facility] PHOSPHORUS 2022-06-22 [facility] of 22:43:00 [facility] PHOSPHORUS 2022-06-22 [facility] of 22:43:00 [facility] METANEPHRINES, PLASMA 2022-06-22 [facility] of 22:42:00 [facility] POCT GLUCOSE (AUTOMATED) 2022-06-22 [place], [place] Uni versity of 21:59:00 [facility] POCT GLUCOSE (AUTOMATED) 2022-06-22 Low, Ca [place] Uni versity of 21:59:00 [facility] POCT GLUCOSE (AUTOMATED) 2022-06-22 Low, Ca [place] Uni versity of 16:52:00 [facility] POCT GLUCOSE (AUTOMATED) 2022-06-22 Low, [place] Uni versity of 16:52:00 [facility] POCT GLUCOSE (AUTOMATED) 2022-06-22 Low, [place] Uni versity of 13:13:00 [facility] POCT GLUCOSE (AUTOMATED) 2022-06-22 Low, Ca [place] Uni versity of 13:13:00 [facility] MAGNESIUM 2022-06-22 [facility] of 10:07:00 [facility] FERRITIN SERUM 2022-06-22 [facility] of 10:07:00 [facility] VITAMIN B12, LEVEL 2022-06-22 [facility] of 10:07:00 [facility] BASIC METABOLIC PANEL (NA, K, 2022-06-22 [facility] ivers[facility] of CL, CO2, GLUCOSE, BUN, 10:07:00 [place] [facility] CREATININE, CA) Branch IRON PANEL 2022-06-22 [facility] of 10:07:00 [facility] CBC WITH DIFF 2022-06-22 [facility] of 10:07:00 [facility] MAGNESIUM 2022-06-22 [facility] of 10:07:00 [facility] FERRITIN SERUM 2022-06-22 [facility] of 10:07:00 [facility] VITAMIN B12, LEVEL 2022-06-22 [facility] of 10:07:00 [facility] BASIC METABOLIC PANEL (NA, K, 2022-06-22 [facility] iversity of CL, CO2, GLUCOSE, BUN, 10:07:00 [place] [facility] CREATININE, CA) Branch IRON PANEL 2022-06-22 [facility] of 10:07:00 [facility] CBC WITH DIFF 2022-06-22 [facility] of 10:07:00 [facility] POCT GLUCOSE (AUTOMATED) 2022-06-22 Ca Meléndezzabeth Uni versity of 00:54:00 [facility] POCT GLUCOSE (AUTOMATED) 2022-06-22 Low, [place] Uni versity of 00:54:00 [facility] POCT GLUCOSE (AUTOMATED) 2022-06-21 Srinath Cohen of 21:48:00 [facility] POCT GLUCOSE (AUTOMATED) 2022-06-21 Srinath Cohen ity of 21:48:00 [facility] HB ECG ROUTINE & RHYTHM STRIP 2022-06-21 Mery Gomezid Un iversity of 19:13:25 [facility] HB ECG ROUTINE & RHYTHM STRIP 2022-06-21 SantosfideliaMeryid Un iversity of 19:13:25 [facility] TRANSTHORACIC ECHO (TTE) 2022-06-21 Bni Gomez Univers ity of COMPLETE W/ CONTRAST 16:58:45 [facility] TRANSTHORACIC ECHO (TTE) 2022-06-21 Bin Gomez Univers ity of COMPLETE W/ CONTRAST 16:58:45 [facility] POCT GLUCOSE (AUTOMATED) 2022-06-21 Cohen, Srinath Univers ity of 16:35:00 [facility] POCT GLUCOSE (AUTOMATED) 2022-06-21 Srinath Cohen [facility] ity of 16:35:00 [facility] THYROID STIMULATING HORMONE 2022-06-21 Patricia Bin Univ ersity of 12:08:00 [facility] COMP. METABOLIC PANEL ([id number]) 2022-06-21 Anastasiya Tapia [place] of 12:08:00 [facility] CBC WITH DIFF 2022-06-21 Anastasiya Tapia [place] of 12:08:00 [facility] GLYCOSYLATED HEMOGLOBIN (A1C) 2022-06-21 Bin Gomez Un iversity of 12:08:00 [facility] THYROID STIMULATING HORMONE 2022-06-[address] [facility] ersity of 12:08:00 [facility] COMP. METABOLIC PANEL ([id number]) 2022-06-21 Anastasiya Tapia [place] of 12:08:00 [facility] CBC WITH DIFF 2022-06-21 Anastasiya Tapia [place] of 12:08:00 [facility] GLYCOSYLATED HEMOGLOBIN (A1C) 2022-06-21 Bin Gomez Un iversity of 12:08:00 [facility] COVID-19 (ID NOW RAPID 2022-06-21 Anastasiya Tapia [facility] sity of TESTING) 07:07:00 [facility] LAB ONLY COVID INTERPRETATION 2022-06-21 Anastasiya Tapia [place] of 07:07:00 [facility] COVID-19 (ID NOW RAPID 2022-06-21 Anastasiya Tapia [facility] sity of TESTING) 07:07:00 [facility] LAB ONLY COVID INTERPRETATION 2022-06-21 Anastasiya Tapia [place] of 07:07:00 [facility] LACTIC ACID WHOLE BLOOD 2022-06-21 Srinath Cohen [facility] ty of 04:05:00 [facility] LACTIC ACID WHOLE BLOOD 2022-06-21 [facility] 04:05[facility]00 [facility] CT HEAD WO CONTRAST 2022-06-21 [facility] o f 00:42:20 [facility] CT HEAD WO CONTRAST 2022-06-21 [facility] o f 00:42:20 [facility] ELECTROENCEPHALOGRAM 2022-06-21 [facility] of 00:00:00 [facility] ELECTROENCEPHALOGRAM 2022-06-21 [facility] of 00:00:00 [facility] LACTIC ACID WHOLE BLOOD 2022-06-20 [facility] ty of 23:59:00 [facility] LACTIC ACID WHOLE BLOOD 2022-06-20 [facility] ty of 23:59:00 [facility] CT ANGIOGRAM ABDOMEN/PELVIS 2022-06-20 Singer [facility] ersity of 20:21:56 [facility] CT ANGIOGRAM ABDOMEN/PELVIS 2022-06-20 [facility] ersity of 20:21:56 [facility] URINALYSIS 2022-06-20 Srinath Cohen [place] of 19:04:00 [facility] URINE CULTURE 2022-06-20 Singer Srinath [place] of 19:04:00 [facility] URINALYSIS 2022-06-20 [facility] of 19:04:00 [facility] URINE CULTURE 2022-06-20 [facility] of 19:04:00 [facility] XR CHEST 1 VW 2022-06-20 Srinath Cohen [place] of 18:50:20 [facility] XR CHEST 1 VW 2022-06-20 Srinath Cohen [place] of 18:50:20 [facility] BLOOD CULTURE SCREEN 2022-06-20 Srinath Cohen [place] of 18:46:00 [facility] BLOOD CULTURE SCREEN 2022-06-20 [facility] of 18:46:00 [facility] BLOOD CULTURE SCREEN 2022-06-20 CohenChristopher fayeip [place] of 18:39:00 [facility] TROPONIN I 2022-06-20 [facility] of 18:39:00 [facility] COMP. METABOLIC PANEL ([id number]) 2022-06-20 Srinath Cohen iversity of 18:39:00 [facility] CBC WITH DIFF 2022-06-20 [facility] of 18:39:00 [facility] BLOOD CULTURE SCREEN 2022-06-20 [facility] of 18:39:00 [facility] TROPONIN I 2022-06-20 [facility] of 18:39:00 [facility] COMP. METABOLIC PANEL ([id number]) 2022-06-20 Christopher Cohenip iversity of 18:39:00 [facility] CBC WITH DIFF 2022-06-20 [facility] of 18:39:00 [facility] EKG-12 LEAD 2022-06-20 [facility] of 18:38:36 [facility] EKG-12 LEAD 2022-06-20 [facility] of 18:38:36 [facility] LACTIC ACID WHOLE BLOOD 2022-06-20 Srinath Cohen Universi ty of 18:38:00 [facility] LACTIC ACID WHOLE BLOOD 2022-06-20 Srinath Cohen Universi ty of 18:38:00 [facility] EMERGENCY DEPARTMENT 2022-06-20 Doctor Unassigned, Universi ty of DOCUMENTS 05:01:00 [place] [facility] HOSPITAL ADMISSION 2022-06-20 Doctor Unassigned, University of 05:01:00 [place] [facility] ASSIGNMENT OF BENEFITS 2021-05-07 Doctor Unassigned, [facility] of 21:31:03 [place] [facility] Hy[facility] Plan of Care Planned Activity Planned Date Details Comments Source Future Scheduled 2023-05-[address] [facility] 00:00:00 (Season Ended) [code = Medic al Center Influenza Vaccine (Season Ended)] Future Scheduled 2023-05-12 INFLUENZA VACCINE [...] 00:00:00 [facility] (procedure[facility] [code = 05241314] Future Scheduled 2020-09-[address] [facility] 00[facility] (procedure) [code = 70094205] Future Scheduled 2020-09-[address] [facility] 00:00[facility]00 [facility] (procedure) [code = 24732908] Future Scheduled 2020-09-[address] [facility] 00:00:00 [facility] (procedure) [code = 21727124] Future Scheduled 2020-09-[address] [facility] 00:00:00 [facility] (procedure) [code = 57981920] Future Scheduled 2020-09-[address] [facility] 00:00:00 [facility] (procedure) [code = 48687779] Future Scheduled 2020-09-[address] [facility] 00:00:00 [facility] (procedure) [code = 25008286] Future Scheduled 2020-09-[address] [facility] 00:00:00 [facility] (procedure) [code = 18423276] Future Scheduled 2020-09-[address] [facility] 00:00:00 [facility] (procedure) [code = 11965195] Future Scheduled 2020-09-[address] [facility] 00:00:00 [facility] (procedure) [code = 88243002] Future Scheduled 2020-09-[address] [facility] 00:00:00 [facility] (procedure) [code = 50462747] Future Scheduled 2020-09-[address] [facility] 00:00:00 [facility] (procedure) [code = 54404752] Future Scheduled 2020-09-[address] [...] 00:00:00 (1 of 1 - Medical Center [id number] PCV13) [code = PNEUMOCOCCAL 65+ YRS (1 of 1 - [id number]_[id number] PCV13)] Future Scheduled 2002 PNEUMOCOCCAL 65+ YRS [facility] 00:00:00 (1 of 1 - Medical Center [id number]_[id number] PCV13) [code = PNEUMOCOCCAL 65+ YRS (1 of 1 - [id number]_Toeeuia PCV13)] Future Scheduled 1999-11-11 MEDICARE ANNUAL [facility] [...] [facility] 00:00:00 protein (procedure) [facility] [code = 217651490] Future Scheduled 1947 DIABETIC EYE EXAM [facility] 00:00:00 [code = DIABETIC EYE Medical Center EXAM] Future Scheduled 1947 Urine screening for [facility] 00:00:00 protein (procedure) Medical Center [code = 546131194] Future Scheduled 1947 DIABETIC EYE EXAM [facility] 00:00:00 [code = DIABETIC EYE Medical Center EXAM] Future Scheduled 1947 Urine screening for [facility] 00:00:00 protein (procedure) Medical Center [code = 664897588] Future Scheduled 1947 DIABETIC EYE EXAM [facility] 00:00:00 [code = DIABETIC EYE Medical Center EXAM] Future Scheduled 1947 Urine screening for [facility] 00:00:00 protein (procedure) Medical Center [code = 043902833] Future Scheduled 1947 DIABETIC EYE EXAM [facility] 00:00:00 [code = DIABETIC EYE Medical Center EXAM] Future Scheduled 1947 Urine screening for [facility] 00:00:00 protein (procedure) Medical Center [code = 363077809] Future Scheduled 1947 DIABETIC EYE EXAM [facility] 00:00:00 [code = DIABETIC EYE Medical Center EXAM] Future Scheduled 1947 Urine screening for [facility] 00:00:00 protein (procedure) Medical Center [code = 406121315] Future Scheduled 1947 DIABETIC EYE EXAM [facility] 00:00:00 [code = DIABETIC EYE Medical Center EXAM] Future Scheduled 1947 Urine screening for [facility] 00:00:00 protein (procedure) Medical Center [code = 132781346] Future Scheduled 1947 DIABETIC EYE EXAM [facility] 00:00:00 [code = DIABETIC EYE Medical Center EXAM] Future Scheduled 1947 Urine screening for [facility] 00:00:00 protein (procedure) Medical Center [code = 646394847] Future Scheduled 1947 DIABETIC EYE EXAM [facility] 00:00:00 [code = DIABETIC EYE Medical Center EXAM] Future Scheduled 1947 Urine screening for [facility] 00:00:00 protein (procedure) Medical Center [code = 552212785] Future Scheduled 1947 DIABETIC EYE EXAM [facility] 00:00:00 [code = DIABETIC EYE Medical Center EXAM] Future Scheduled 1947 Urine screening for [facility] 00:00:00 protein (procedure) Medical Center [code = 597815688] Future Scheduled 1947 DIABETIC EYE EXAM [facility] 00:00:00 [code = DIABETIC EYE Medical Center EXAM] Future Scheduled 1947 Urine screening for [facility] 00:00:00 protein (procedure) Medical Center [code = 261174636] Future Scheduled 1947 DIABETIC EYE EXAM [facility] 00:00:00 [code = DIABETIC EYE Medical Center EXAM] Future Scheduled 1947 Urine screening for [facility] 00:00:00 protein (procedure) Medical Center [code = 265881809] Future Scheduled 1943 PNEUMOCOCCAL 65+ YRS [facility] [...] DXA [facility] 00:00:00 SCAN] [facility] Future Scheduled 1937 DXA SCAN [code = DXA [facility] 00:00:00 SCAN] [facility] Future Scheduled 1937 DXA SCAN [code = DXA [facility] 00:00:00 SCAN] [facility] Future Scheduled 1937 DXA SCAN [code = DXA [facility] 00:00:00 SCAN] [facility] Future Scheduled 1937 DXA SCAN [code = DXA [facility] 00:00:00 SCAN] [facility] Future Scheduled 1937 DXA SCAN [code = DXA [facility] 00:00:00 SCAN] [facility] Future Scheduled 1937 DXA SCAN [code = DXA [facility] 00:00:00 SCAN] [facility] Future Scheduled 1937 DXA SCAN [code = DXA [facility] 00:00:00 SCAN] [facility] Future Scheduled 1937 DXA SCAN [code = DXA [facility] 00:00:00 SCAN] [facility] Future Scheduled 1937 DXA SCAN [code = DXA [facility] 00:00:00 SCAN] [facility] Encounters Start End Encounter Admission Attending Care Care Encounter Source Date/Time Date/Time Type Type Clinicians Facility Department ID 2022-10-12 Outpatient [facility] [id number] [place] 11:19:01 [id number] [facility] 2020-03-24 [id number] [facility] 23:52:00 JUAQUIN Med 2023-03-09 2023-03-09 Outpatient R HARINI [facility] [id number] Univers 10:30:00 10:30:00 HARINI BETANCOURT [facility] 2022-12-22 2022-12-[address] [facility] [id number] Univers 00:00:00 00:00:00 GILBERT [facility] 2022-11-11 2022-11-11 Hospital ELIAS Hylton [id number] Univers 07:05:00 23:59:00 Encounter Inez Montejo [id number] ity of [facility] 4.2.7.2.686 Shawn as [id number] [facility] [address] 2022-11-11 2022-11-11 [facility] [id number] Univers 00:00:00 23:59:00 INEZ ity [facility] 2022-11-11 2022-11-11 Orders Doctor NEWMAN 1.2.840.114 [id number] Univers 00:00:00 00:00:00 Only Unassigned, RAYA 350.1.13.10 ity of [place] [facility] 4.2.7.2.686 Shawn as [id number] [facility] [address] [place] 2022-11-10 2022-11-10 Orders Doctor NEWMAN 1.2.840.114 [id number] Univers 00:00:00 00:00:00 Only Unassigned, RAYA 350.1.13.10 ity of [place] [id number] Shawn as [id number] [facility] [address] [place] 2022-10-24 2022-11-01 Inpatient X [facility] [id number] Univers 17:16:00 17:33:00 JARVIS [facility] 2022-10-24 2022-11-01 [facility] Liza Quiroz 1.2.840.11 [id number] Univers 17:16:00 17:33:00 Encounter Raul Rosen 350.1.13.10 ity of [facility] 4.2.7.2.686 [place] [id number] [facility] 0[address] Branch 2022-10-10 2022-10-13 Inpatient [facility] 13:24:00 18:20:00 CASSIUS 2022-10-11 2022-10-11 Telephone Bryan [facility] 1.2.840.114 [id number] Univers 00:00:00 00:00:00 [facility] 350.1.13.10 ity of [facility] [place] [facility] [id number] [facility] 0[address] OFFICE BUILDING 2022-10-06 2022-10-08 Outpatient R KATE, [facility] [id number] Univers 06:20:00 13:18:00 DAYAMI ity [facility] 2022-10-06 2022-10-08 Hospital Bryan, Harini BLUM 1 .2.840.114 [id number] Univers 06:20:00 13:18:00 Encounter Dayami Love [facility] RAYA 350.1.1 3.10 ity of [facility] 4.2.7.2.686 Shawn as [id number] [facility] [address] 2022-10-06 2022-10-06 Surgery VIKTORIA Betancourt 1.2.840.114 [id number] Univers 08:00:00 09:45:00 [place] RAYA 350.1.13.10 ity of [facility] 4.2.7.2.686 Shawn as [id number] [facility] [address] [place] 2022-10-03 2022-10-03 Post Acute Care Nurse Practitioner Mark Kahn Lab Main [facility] 1.2.8 40.114 [id number] Univers 10:30:00 10:45:00 Visit Bryan Harini [place] 350.1 .13.10 ity of [place].2.[place] [facility] [id number] Tn dical [facility] 353 Branch BUILDING 2022-10-03 2022-10-03 Outpatient R HARINI [facility] [id number] Univers 10:30:00 10:30:00 HARINI BETANCOURT ity [facility] 2022-09-13 2022-09-13 Telephone VIKTORIA Betancourt 1.2.840.114 [id number] Univers 00:00:00 00:00:00 [place] RAYA 350.1.13.10 ity of [facility] 4.2.7.2.686 Shawn as [id number] [facility] [address] 2022-08-08 2022-08-08 Telephone VIKTORIA Betancourt 1.2.840.114 [id number] Univers 00:00:00 00:00:00 Choelgin SOY 350.1.13.10 ity of [facility] 4.2.7.2.686 Shawn as [id number] [facility] [address] 2022-08-03 2022-08-03 Hospital VIKTORIA Betancourt 1.2.840.114 [id number] Univers 11:00:00 23:59:00 Encounter Maria Elena DOS SANTOS 350.1.13.10 ity of [facility] 4.2.7.2.686 Shawn as [id number] [facility] [address] [place] 2022-08-03 2022-08-03 Office SHARIF Betancourt 1.2.840.114 [id number] Univers 13:00:00 13:15:00 Visit [facility] 350.1.13.10 ity of [facility] 4.2.7.2.[place] [id number] [facility] 0[address] 2022-08-03 2022-08-03 Outpatient R HARINI [facility] [id number] Univers 13:00:00 13:00:00 HARINI BETANCOURT ity [facility] 2022-08-03 2022-08-03 Orders Doctor NEWMAN 1.2.840.114 [id number] Univers 00:00:00 00:00:00 Only Unassigned, RAYA 350.1.13.10 ity of [place] [facility] 4.2.7.2.686 Shawn as [id number] [facility] [address] 2022-07-14 2022-07-14 Outpatient R HARINI [facility] [id number] Univers 16:30:12 23:59:00 HARINI BETANCOURT ity of [facility] 2022-07-14 2022-07-14 Hospital VIKTORIA Betancourt 1.2.840.114 [id number] Univers 16:30:12 23:59:00 Encounter [place] RAYA 350.1.13.10 ity of [facility] 4.2.7.2.686 Shawn as [id number] [facility] [address] 2022-07-14 2022-07-14 Telephone VIKTORIA Betancourt 1.2.840.114 [id number] Univers 00:00:00 00:00:00 [place] RAYA 350.1.13.10 ity of [facility] 4.2.7.2.686 Shawn as [id number] [facility] [address] 2022-07-07 2022-07-07 Orders Doctor TRENT 1.2.840.114 [id number] Univers 00:00:00 00:00:00 Only Unassigned, RAYA 350.1.13.10 ity of [place] [facility] 4.2.7.2.686 Shawn as [id number] [facility] [address]9 [address] 2022-06-27 2022-06-27 Transition ROSE Macias 1.2.840.114 [id number] Univers 00:00:00 00:00:00 of Care Jamil Reeder SHEPHERD 350.1.13.10 ity of [place] 4[place]2.7.2.[place] [id number] [facility] [address] 2022-06-20 2022-06-25 Inpatient X ALVERTO [facility] [id number] Univers 13:17:00 13:00:00 ACACIA ity of [facility] [place] 2022-06-20 2022-06-25 Hospital Srinath Cohen 1.2.840.1 [id number] Univers 13:17:00 13:00:00 Encounter Alverto Acacia Saima RAYA 350.1.13. 10 ity of [facility] 4.2.7.2.686 [place] [id number] [facility] [address] 2022-06-24 2022-06-24 Surgery VIKTORIA Betancourt 1.2.840.114 [id number] Univers 08:35:00 09:20:00 [place] RAYA 350.1.13.10 ity of [facility] 4.2.7.2.686 Shawn as [phone] [facility] [address] 2021-05-10 2021-05-10 Nurse Therapy, Ang Sindhu Covid [facility] 1.2. 840.114 [id number] Univers 19:27:33 20:27:33 Visit Unknown, [facility] 350.1.13.10 ity of [place] 4.2.7.2.686 Shawn as Terrell?Blea [phone] [address] Medical Office [facility] 2021-05-10 2021-05-10 Outpatient R ARTHUR, [facility] [id number] Univers 19:30:00 19:30:00 ATTENDING ity [facility] 2021-05-09 2021-05-09 Telephone TRENT Tariq 1.2.219.268 [id number] Univers 00:00:00 00:00:00 Gessica P RAYA 350.1.13.10 ity of [facility] 4.2.7.2.686 Shawn as [phone] [facility] [address] [place] 2021-05-07 2021-05-07 Laboratory Only, Ang Db Test [facility] 1.2.8 40.114 [id number] Univers 17:11:44 17:31:44 Only Green, [facility] 350.1.13.10 ity of [place] 4.2.7.2.686 Shawn as Terrell?Blea [phone] [address] Office [facility] 2021-05-07 2021-05-[address] [facility] [id number] Univers 17:15:00 17:15:00 JUD ity [facility] 2021-05-07 2021-05-[address] [facility] [id number] Univers 16:20:00 16:20:00 JUD ity [facility] 2021-05-07 2021-05-07 Orders Doctor NEWMAN 1.2.840.114 [id number] Univers 00:00:00 00:00:00 Only Unassigned, RAYA 350.1.13.10 ity of [place] [facility] 4.2.7.2.686 Shawn as [phone] [address] 2018-04-03 2018-04-05 Phone Mika PALOMARES [id number] Memoria 20:41:00 04:59:59 Message r Neurosurger 07 l y [facility] 2018-03-28 2018-03-30 Phone nullFlavo MNA [id number] Memoria 15:42:00 04:59:59 Message r Neurosurger 06 l y [facility] 2018-03-26 2018-03-28 Phone nullFlavo MNA [id number] 55 Memoria 16:02:00 04:59:59 Message r Neurosurger 05 l y [facility] 2018-03-22 2018-03-22 Ambulatory nullFlavo MNA [id number] Memoria 17:15:00 17:15:00 Pre-Reg r Neurosurger 01 l y [facility] 2018-03-19 2018-03-21 Phone nullFlavo MNA [id number] Memoria 14:29:00 04:59:59 Message r Neurosurger 04 l y [facility] 2018-03-15 2018-03-17 Phone nullFlavo MNA [id number] Memoria 21:01:00 04:59:59 Message r Neurosurger 03 l y [facility] 2018-03-07 2018-03-09 Phone nullFlavo MNA [id number] Memoria 16:18:00 04:59:59 Message r Neurosurger 02 l y [facility] 2018-03-01 2018-03-03 Phone nullFlavo MNA [id number] 55 Memoria 16:12:00 04:59:59 Message r Neurosurger 01 l y [facility] 2018-03-01 2018-03-03 Phone nullFlavo MNA [id number] 55 Memoria 14:43:00 04:59:59 Message r Neurosurger 00 l y [facility] 2018-03-01 2018-03-01 Ambulatory nullFlavo MNA [id number] Memoria 16:15:00 16:15:00 Pre-Reg r Neurosurger 00 l y [facility] 2018-02-19 2018-02-27 Inpatient nullFlavo [facility] [id number] Memoria 07:05:00 21:19:00 [facility] 00 [facility] 2018-02-05 2018-02-13 Inpatient nullFlavo [facility] [id number] Memoria 22:15:00 16:22:00 [place] [address] l [facility] Results Test Description Test Time Test Comments Results Result Comments Source POCT GLUCOSE (AUTOMATED) 2022-11-01 17:45:48 Test Item Value Reference Range Interpretation Comme nts POCT GLU (test code = 9472496370) 377 mg/dL 70-110 H Lab Interpretation (test code = 94796-3) Abnormal [facility] BranchPOCT GLUCOSE (AUTOMATED)2022-11-01 14:03:36 Test Item Value Reference Range Interpretation Comments POCT GLU (test code = 6332519992) 218 mg/dL 70-110 H Lab Interpretation (test code = Abnormal 03531-1) [facility]01 02:05:30 Test Item Value Reference Range Interpretation Comments POCT GLU (test code = 7152577756) 195 mg/dL 70-110 H Lab Interpretation (test code = Abnormal 46715-7) [facility]2022-10-31 22:18:04 Test Item Value Reference Range Interpretation Comments POCT GLU (test code = 9782286880) 200 mg/dL 70-110 H Lab Interpretation (test code = Abnormal 11225-5) [facility]2022-10-31 17:40:15 Test Item Value Reference Range Interpretation Comments POCT GLU (test code = 0229812595) 231 mg/dL 70-110 H Lab Interpretation (test code = Abnormal 03323-5) [facility]2022-10-31 14:36:10 Test Item Value Reference Range Interpretation Comments POCT GLU (test code = 3438891336) 199 mg/dL 70-110 H Lab Interpretation (test code = Abnormal 06961-5) [facility]2022-10-31 03:28:00 Test Item Value Reference Range Interpretation Comments POCT GLU (test code = 3879117499) 198 mg/dL 70-110 H Lab Interpretation (test code = Abnormal 59034-5) [facility]2022-10-30 17:40:57 Test Item Value Reference Range Interpretation Comments POCT GLU (test code = 0173260382) 275 mg/dL 70-110 H Lab Interpretation (test code = Abnormal 16116-9[facility] 13:56:28 Test Item Value Reference Range Interpretation Comments POCT GLU (test code = 4424971790) 191 mg/dL 70-110 H Lab Interpretation (test code = Abnormal 58376-3) [facility] WITHOUT [id number] 11:10:09 Test Item Value Reference Range Interpretation Comments WBC (test code = 6690-2) 7.95 See_Comment [A utomated message] The system Vennli generated this result transmit timur reference range : 4.30 - 11.10 10*3/?L. The reference range was not used to interpret this result as normal/abnormal . RBC (test code = 789-8) 3.22 See_Comment L [Au tomated message] The system Vennli generated this result transmit timur reference range [...] 277 See_Comment [Au tomated message] The system Vennli generated this result transmit timur reference range : 166 - 358 10*3/?L. The reference range was not used to interpret this result as normal/abnormal . MPV (test code = 8.4 fL 9.5-12.9 L 35051-1) RDW-CV (test code = 13.3 % 12.0-15.5 788-0) RDW-SD (test code = 41.0 fL 39.0-49.9 85459-3) NRBC x10^3 (test code = See_Comment [Au tomated message] 7648049836) The system Vennli generated this result transmit timur reference range : 10*3/?L. The reference range was not used to interpret this result as normal/abnormal . NRBC/100 WBC (test code 0.0 See_Comment [Au tomated message] = 6341594106) The system Ikro generated this result transmit timur reference range : 0.0 - 10.0 /100 WBC s. The reference r fernando was not used to interpret this result as normal/abnormal . IPF % (test code = 5018028679) Lab Interpretation (test Abnormal code = 32958-1) [facility] GLUCOSE (AUTOMATED)2022-10-30 02:05:21 Test Item Value Reference Range Interpretation Comments POCT GLU (test code = 6935219985) 256 mg/dL 70-110 H Lab Interpretation (test code = Abnormal 39313-2) [facility] GLUCOSE (AUTOMATED)2022-10-29 22:52:51 Test Item Value Reference Range Interpretation Comments POCT GLU (test code = 3658055092) 193 mg/dL 70-110 H Lab Interpretation (test code = Abnormal 24575-0) [facility] GLUCOSE (AUTOMATED)2022-10-29 18:00:29 Test Item Value Reference Range Interpretation Comments POCT GLU (test code = 0067115653) 328 mg/dL 70-110 H Lab Interpretation (test code = Abnormal 62802-5) [facility] GLUCOSE (AUTOMATED)2022-10-29 14:03:49 Test Item Value Reference Range Interpretation Comments POCT GLU (test code = 4585067109) 214 mg/dL 70-110 H Lab Interpretation (test code = Abnormal 49658-3) [facility] GLUCOSE (AUTOMATED)2022-10-29 02:04:31 Test Item Value Reference Range Interpretation Comments POCT GLU (test code = 240 mg/dL 70-110 H Notifi ed Provider 1270140792) Lab Interpretation (test Abnormal code = 30773-6) [facility] GLUCOSE (AUTOMATED)2022-10-28 23:29:03 Test Item Value Reference Range Interpretation Comments POCT GLU (test code = 7499901707) 227 mg/dL 70-110 H Lab Interpretation (test code = Abnormal 00743-8) [facility] GLUCOSE (AUTOMATED)2022-10-28 18:26:14 Test Item Value Reference Range Interpretation Comments POCT GLU (test code = 1089723990) 241 mg/dL 70-110 H Lab Interpretation (test code = Abnormal 56352-6) [facility]2022-10-28 14:37:46 Test Item Value Reference Range Interpretation Comments POCT GLU (test code = 3634645805) 190 mg/dL 70-110 H Lab Interpretation (test code = Abnormal 29505-8) [facility] METABOLIC PANEL (NA, K, CL, CO2, GLUCOSE, BUN, CREATININE, CA)2022-10-28 11:33:48 Test Item Value Reference Range Interpretation Comments NA (test code = 128 mmol/L 135-145 L 0293989864) K (test code = 4.1 mmol/L 3.5-5.0 2316420648) CL (test code = 99 mmol/L 98-108 0614587843) CO2 TOTAL (test code = 24 mmol/L 23-31 3070826931) AGAP (test code = 5 2-16 8938898371) BUN (test code = 15 mg/dL 7-23 9225011363) GLUCOSE (test code = 169 mg/dL 70-110 H 0906777424) CREATININE (test code = 0.55 mg/dL 0.50-1.04 7968649694) CALCIUM (test code = 8.1 mg/dL 8.6-10.6 L 5568406697) eGFR (test code = 105.0 mL/min/1.73m2 2134001039) WINDY (test code = WINDY) Association of [...] tests). Lab Interpretation Abnormal (test code = 69833-2) [facility] WITH [id number] 10:48:02 Test Item Value Reference Range Interpretation Comments WBC (test code = 6.28 See_Comment [Automated 1890-2) message] The sy stem which generated this result transmitted reference range : 4.30 - 11.10 10*3/?L. The reference range was not used to interpret this result as normal/abnormal . RBC (test code = 2.94 See_Comment L [Automated 869-8) message] The sy stem which generated this [...] RDW-SD (test code = 40.9 fL 39.0-49.9 61364-3) RDW-CV (test code = 13.6 % 12.0-15.5 788-0) PLT (test code = 287 See_Comment [Automated 777-3) message] The sy stem which generated this result transmitted reference range : 166 - 358 10*3/ ?L. The reference r fernando was not used to interpret this result as normal/abnormal . MPV (test code = 9.3 fL 9.5-12.9 L 87085-6) NRBC/100 WBC (test 0.0 See_Comment [Automat ed code = 2185394926) message] The system which generated this result transmitted reference range : 0.0 - 10.0 /100 WBCs. The refer ence range was not u sed to interpret th is result as normal/abnormal . NRBC x10^3 (test code See_Comment [Auto mated = 7809434568) message] The s ystem which generated this result transmitted reference range : 10*3/?L. The reference range was not used to interpret this result as normal/abnormal . GRAN MAT (NEUT) % 55.1 % (test code = 770-8) IMM GRAN % (test code 0.50 % = 0711614843) LYMPH % (test code = 31.2 % 736-9) MONO % (test code = 11.6 % 5905-5) EOS % (test code = 1.4 % 713-8) BASO % (test code = 0.2 % 706-2) GRAN MAT x10^3(ANC) 3.46 10*3/uL 1.88-7.09 (test code = 6959383288) IMM GRAN x10^3 (test 0.03 10*3/uL 0.00-0.06 code = 6794262191) LYMPH x10^3 (test code 1.96 10*3/uL 1.32-3.29 = 731-0) MONO x10^3 (test code 0.73 10*3/uL 0.33-0.92 = 742-7) EOS x10^3 (test code = 0.09 10*3/uL 0.03-0.39 711-2) BASO x10^3 (test code 0.01-0.07 = 704-7) Lab Interpretation Abnormal (test code = 62491-4) [facility] GLUCOSE (AUTOMATED)2022-10-28 02:11:22 Test Item Value Reference Range Interpretation Comments POCT GLU (test code = 6923047940) 268 mg/dL 70-110 H Lab Interpretation (test code = Abnormal 41347-5) [facility] GLUCOSE (AUTOMATED)2022-10-27 22:40:13 Test Item Value Reference Range Interpretation Comments POCT GLU (test code = 2724164121) 151 mg/dL 70-110 H Lab Interpretation (test code = Abnormal 97987-8) [facility] GLUCOSE (AUTOMATED)2022-10-27 17:35:16 Test Item Value Reference Range Interpretation Comments POCT GLU (test code = 0157474453) 239 mg/dL 70-110 H Lab Interpretation (test code = Abnormal 34706-4) [facility] GLUCOSE (AUTOMATED)2022-10-27 14:42:18 Test Item Value Reference Range Interpretation Comments POCT GLU (test code = 0102148925) 221 mg/dL 70-110 H Lab Interpretation (test code = Abnormal 37661-7) [facility] GLUCOSE (AUTOMATED)2022-10-27 03:32:29 Test Item Value Reference Range Interpretation Comments POCT GLU (test code = 258 mg/dL 70-110 H Notifi ed Provider 1547465061) Lab Interpretation (test Abnormal code = 15876-9) [facility] GLUCOSE (AUTOMATED)2022-10-26 22:32:49 Test Item Value Reference Range Interpretation Comments POCT GLU (test code = 176 mg/dL 70-110 H Notifi ed Provider 8354910065) Lab Interpretation (test Abnormal code = 96734-8) [facility] GLUCOSE (AUTOMATED)2022-10-26 17:34:42 Test Item Value Reference Range Interpretation Comments POCT GLU (test code = 307 mg/dL 70-110 H Notifi ed Provider [id number]) Lab Interpretation (test Abnormal code = 67682-2) [facility] GLUCOSE (AUTOMATED)2022-10-26 13:30:00 Test Item Value Reference Range Interpretation Comments POCT GLU (test code = 239 mg/dL 70-110 H Notifi ed Provider 0940376645) Lab Interpretation (test Abnormal code = 91661-4) [facility] GLUCOSE (AUTOMATED)2022-10-26 03:40:06 Test Item Value Reference Range Interpretation Comments POCT GLU (test code = 225 mg/dL 70-110 H Notifi ed Provider 0902828624) Lab Interpretation (test Abnormal code = 02127-2) [facility] GLUCOSE (AUTOMATED)2022-10-26 01:50:16 Test Item Value Reference Range Interpretation Comments POCT GLU (test code = 1720761173) 240 mg/dL 70-110 H Lab Interpretation (test code = Abnormal 79657-4) [facility] GLUCOSE (AUTOMATED)2022-10-25 22:16:54 Test Item Value Reference Range Interpretation Comments POCT GLU (test code = 1459746618) 188 mg/dL 70-110 H Lab Interpretation (test code = Abnormal 91421-0) [facility] GLUCOSE (AUTOMATED)2022-10-25 17:34:44 Test Item Value Reference Range Interpretation Comments POCT GLU (test code = 176 mg/dL 70-110 H Notifi ed Provider [id number]) Lab Interpretation (test Abnormal code = 49391-6) [facility] GLUCOSE (AUTOMATED)2022-10-25 14:26:21 Test Item Value Reference Range Interpretation Comments POCT GLU (test code = 1406891530) 205 mg/dL 70-110 H Lab Interpretation (test code = Abnormal 65721-4) [facility] METABOLIC PANEL (NA, K, CL, CO2, GLUCOSE, BUN, CREATININE, CA)2022-10-25 10:29:58 Test Item Value Reference Range Interpretation Comments NA (test code = 127 mmol/L 135-145 L 9039240100) K (test code = 3.8 mmol/L 3.5-5.0 1089785702) CL (test code = 90 mmol/L 98-108 L 5014692236) CO2 TOTAL (test code = 29 mmol/L 23-31 4441166483) AGAP (test code = 8 2-16 2137101636) BUN (test code = 21 mg/dL 7-23 5048181271) GLUCOSE (test code = 203 mg/dL 70-110 H 0471801833) CREATININE (test code = 0.68 mg/dL 0.50-1.04 6894817581) CALCIUM (test code = 8.8 mg/dL 8.6-10.6 4065698044) eGFR (test code = 82.2 mL/min/1.73m2 6404502808) WINDY (test code = WINDY) Association of [...] tests). Lab Interpretation Abnormal (test code = 44341-2) [facility] 10:25:19 Test Item Value Reference Range Interpretation Comments APTT Patient (test code 63 See_Comment H [Au tomated message] = 4943-2) The system Vennli generated this result transmitted ref erence range: 26 - 36 Seconds. The reference range was not used to int erpret this result as normal/abnormal . Lab Interpretation (test Abnormal code = 82120-4) [facility]2023-[facility]-14 10:25:19 Test Item Value Reference Range Interpretation Comments Fibrinogen (test code = 6671092121) 574 mg/dL 167-453 H Lab Interpretation (test code = Abnormal 39255-2) [facility] / [id number] 10:25:18 Test Item Value Reference Range Interpretation [...] tions. Lab Interpretation (test Normal code = 85488-2) [facility] with [id number] 10:19:38 Test Item Value Reference Range Interpretation Comments WBC (test code = 9.89 See_Comment [Automated 6090-2) message] The sy stem which generated this result transmitted reference range : 4.30 - 11.10 10*3/?L. The reference range was not used to interpret this result as normal/abnormal . RBC (test code = 3.78 See_Comment L [Automated 989-8) message] The sy stem which generated this [...] RDW-SD (test code = 39.8 fL 39.0-49.9 04846-4) RDW-CV (test code = 13.3 % 12.0-15.5 788-0) PLT (test code = 333 See_Comment [Automated 777-3) message] The sy stem which generated this result transmitted reference range : 166 - 358 10*3/ ?L. The reference r fernando was not used to interpret this result as normal/abnormal . MPV (test code = 9.3 fL 9.5-12.9 L 62504-7) NRBC/100 WBC (test 0.0 See_Comment [Automat ed code = 8747517371) message] The system which generated this result transmitted reference range : 0.0 - 10.0 /100 WBCs. The refer ence range was not u sed to interpret th is result as normal/abnormal . NRBC x10^3 (test code See_Comment [Auto mated = 8176962596) message] The s ystem which generated this result transmitted reference range : 10*3/?L. The reference range was not used to interpret this result as normal/abnormal . GRAN MAT (NEUT) % 70.8 % (test code = 770-8) IMM GRAN % (test code 0.40 % = 6272322150) LYMPH % (test code = 18.2 % 736-9) MONO % (test code = 10.1 % 5905-5) EOS % (test code = 0.3 % 713-8) BASO % (test code = 0.2 % 706-2) GRAN MAT x10^3(ANC) 7.00 10*3/uL 1.88-7.09 (test code = 4840260466) IMM GRAN x10^3 (test 0.04 10*3/uL 0.00-0.06 code = 8854094978) LYMPH x10^3 (test code 1.80 10*3/uL 1.32-3.29 = 731-0) MONO x10^3 (test code 1.00 10*3/uL 0.33-0.92 H = 742-7) EOS x10^3 (test code = 0.03 10*3/uL 0.03-0.39 711-2) BASO x10^3 (test code 0.01-0.07 = 704-7) Lab Interpretation Abnormal (test code = 88589-6) [facility] 02:02:22 Test Item Value Reference Range Interpretation Comments MAGNESIUM (test code = 4248659546) 1.6 mg/dL 1.7-2.4 L Lab Interpretation (test code = Abnormal 13665-0) [facility] [id number] 00:49:15 Test Item Value Reference Range Interpretation Comments NT-proBNP (test code = 444 pg/mL <=450 3639253320) WINDY (test code = WINDY) Biotin has been reported to cause a negative bias, interpret results relative to patient's use of biotin. Lab Interpretation (test Normal code = 88847-5) [facility] [id number] 00:41:33 Test Item Value Reference Range Interpretation Comments TROPONIN I (test code = 0.006 ng/mL <=0.034 5136335193) WINDY (test code = WINDY) Reference (Normal) [...] biotin. Lab Interpretation Normal (test code = 27904-8) [facility] METABOLIC PANEL (43016)2022-10-25 00:41:13 Test Item Value Reference Range Interpretation Comments NA (test code = 122 mmol/L 135-145 L 9433145907) K (test code = 4.1 mmol/L 3.5-5.0 1467609902) CL (test code = 88 mmol/L 98-108 L 0009025707) CO2 TOTAL (test code = 23 mmol/L 23-31 7910044954) AGAP (test code = 11 2-16 4384900609) BUN (test code = 25 mg/dL 7-23 H 9333348103) GLUCOSE (test code = 206 mg/dL 70-110 H 1462077099) CREATININE (test code = 0.77 mg/dL 0.50-1.04 4564315271) TOTAL BILI (test code = 0.5 mg/dL 0.1-1.6 4750755968) CALCIUM (test code = 9.0 mg/dL 8.6-10.6 3116133185) T PROTEIN (test code = 6.8 g/dL 6.3-8.2 0355108038) ALBUMIN (test code = 4.0 g/dL 3.5-5.0 9601902778) ALK PHOS (test code = 87 U/L 34-122 6001212173) ALTv (test code = 16 U/L 5-35 1742-6) AST(SGOT) (test code = 20 U/L 13-40 4471224697) eGFR (test code = 71.2 mL/min/1.73m2 5768396004) WINDY (test code = WINDY) Association of [...] tests). Lab Interpretation Abnormal (test code = 80004-0) [facility]23-[facility]14 00:40:33 Test Item Value Reference Range Interpretation Comments LIPASE (test code = 3181515868) 39 U/L 0-220 Lab Interpretation (test code = Normal 15676-0) [facility]PROT[facility]OM[facility] / [id number] 00:26:52 Test Item Value Reference Range Interpretation [...] tions. Lab Interpretation (test Normal code = 64317-4) [facility] WITH [id number] 00:19:53 Test Item Value Reference Range Interpretation Comments WBC (test code = 12.65 See_Comment H [Automated 9204-2) message] The sy stem which generated this result transmitted reference range : 4.30 - 11.10 10*3/?L. The reference range was not used to interpret this result as normal/abnormal . RBC (test code = 3.77 See_Comment L [Automated 839-8) message] The sy stem which generated this [...] RDW-SD (test code = 39.7 fL 39.0-49.9 54274-1) RDW-CV (test code = 13.3 % 12.0-15.5 788-0) PLT (test code = 379 See_Comment H [Automated 777-3) message] The sy stem which generated this result transmitted reference range : 166 - 358 10*3/ ?L. The reference r fernando was not used to interpret this result as normal/abnormal . MPV (test code = 9.2 fL 9.5-12.9 L 16993-3) NRBC/100 WBC (test 0.0 See_Comment [Automat ed code = 2596229454) message] The system which generated this result transmitted reference range : 0.0 - 10.0 /100 WBCs. The refer ence range was not u sed to interpret th is result as normal/abnormal . NRBC x10^3 (test code See_Comment [Auto mated = 0696809053) message] The s ystem which generated this result transmitted reference range : 10*3/?L. The reference range was not used to interpret this result as normal/abnormal . GRAN MAT (NEUT) % 70.3 % (test code = 770-8) IMM GRAN % (test code 0.80 % = 6539888824) LYMPH % (test code = 18.7 % 736-9) MONO % (test code = 9.8 % 5905-5) EOS % (test code = 0.2 % 713-8) BASO % (test code = 0.2 % 706-2) GRAN MAT x10^3(ANC) 8.90 10*3/uL 1.88-7.09 H (test code = 6541654086) IMM GRAN x10^3 (test 0.10 10*3/uL 0.00-0.06 H code = 0930157754) LYMPH x10^3 (test code 2.36 10*3/uL 1.32-3.29 = 731-0) MONO x10^3 (test code 1.24 10*3/uL 0.33-0.92 H = 742-7) EOS x10^3 (test code = 0.03 10*3/uL 0.03-0.39 711-2) BASO x10^3 (test code 0.01-0.07 = 704-7) Lab Interpretation Abnormal (test code = 55010-9) [facility]2022-10-08 15:06:32 Test Item Value Reference Range Interpretation Comments POCT GLU (test code = 7467220030) 162 mg/dL 70-110 H Lab Interpretation (test code = Abnormal 30822-4) [facility] GLUCOSE (AUTOMATED)2022-10-08 15:06:32 Test Item Value Reference Range Interpretation Comments POCT GLU (test code = 2168015374) 162 mg/dL 70-110 H Lab Interpretation (test code = Abnormal 20867-3) [facility] GLUCOSE (AUTOMATED)2022-10-08 03:55:19 Test Item Value Reference Range Interpretation Comments POCT GLU (test code = 9016977409) 279 mg/dL 70-110 H Lab Interpretation (test code = Abnormal 41994-4) [facility] GLUCOSE (AUTOMATED)2022-10-08 03:55:19 Test Item Value Reference Range Interpretation Comments POCT GLU (test code = 4016677781) 279 mg/dL 70-110 H Lab Interpretation (test code = Abnormal 08725-1) [facility] GLUCOSE (AUTOMATED)2022-10-08 03:11:05 Test Item Value Reference Range Interpretation Comments POCT GLU (test code = 2682658129) 322 mg/dL 70-110 H Lab Interpretation (test code = Abnormal 89661-7) [facility] GLUCOSE (AUTOMATED)2022-10-08 03:11:05 Test Item Value Reference Range Interpretation Comments POCT GLU (test code = 0356538316) 322 mg/dL 70-110 H Lab Interpretation (test code = Abnormal 08226-0) [facility]Prothrombin Time / [id number] 17:14:10 Test Item Value Reference Range Interpretation Comments PROTIME PATIENT (test See_Comment [Auto mated message] code = 5964-2) The system ich generated this result transmitted ref erence range: 12.0 - 1 4.7 Seconds. The re ference range was not u sed to interpret this result as normal/abnor mal. INR (test code = 6301-6) Nor mal INR <1.1; Warfarin Therap eutic range 2.0 to 3. 0 or 2.5 to 3.5, dep ending upon the indica tions. Lab Interpretation (test Normal code = 36744-3) [facility] WITH [id number] 17:07:07 Test Item Value Reference Range Interpretation [...] RDW-SD (test code = 47.4 fL 39.0-49.9 32153-9) RDW-CV (test code = 15.6 % 12.0-15.5 H 788-0) PLT (test code = See_Comment [Automated 777-3) message] The sy stem which generated this result transmitted reference range : 166 - 358 10*3/ ?L. The reference r fernando was not used to interpret this result as normal/abnormal . MPV (test code = 9.8 fL 9.5-12.9 33324-6) NRBC/100 WBC (test See_Comment [Automat ed code = 5706649397) message] The system which generated this result transmitted reference range : 0.0 - 10.0 /100 WBCs. The refer ence range was not u sed to interpret th is result as normal/abnormal . NRBC x10^3 (test code See_Comment [Auto mated = 3267072304) message] The s ystem which generated this result transmitted reference range : 10*3/?L. The reference range was not used to interpret this result as normal/abnormal . GRAN MAT (NEUT) % 54.5 % (test code = 770-8) IMM GRAN % (test code 0.40 % = 7364819424) LYMPH % (test code = 36.8 % 736-9) MONO % (test code = 7.0 % 5905-5) EOS % (test code = 1.1 % 713-8) BASO % (test code = 0.2 % 706-2) GRAN MAT x10^3(ANC) 2.96 10*3/uL 1.88-7.09 (test code = 5086352224) IMM GRAN x10^3 (test 0.00-0.06 code = 2402405307) LYMPH x10^3 (test code 2.00 10*3/uL 1.32-3.29 = 731-0) MONO x10^3 (test code 0.38 10*3/uL 0.33-0.92 = 742-7) EOS x10^3 (test code = 0.06 10*3/uL 0.03-0.39 711-2) BASO x10^3 (test code 0.01-0.07 = 704-7) Lab Interpretation Abnormal (test code = 86003-4) [facility] [id number] 20:47:27 Test Item Value Reference Range Interpretation Comments METANEPH (test <0.10 0.00-0.49 code = 64830-8) NORMETNEPH (test 0.83 nmol/L 0.00-0.89 code = 17031-6) METAPF INT (test See Note INTERPRETIV E code = 39734-9) INFORMATION: Metanephrines, Plasma (Free) This nacho t [...] be consi dered. This test was d carlyd and its perform ance characteristics determined by A [facility]. I t has not been cleared or approved by the [place] Food and Drug Administration. This test was perfor med in a CLIA certified laboratory and is intended for cl inical purposes.Perfor med By: LUCINDA Arrington [address] [place], [place] [address]F aboratory Director: Juan Espinosa MD, PhD [facility] GLUCOSE (AUTOMATED)2022-06-25 17:12:53 Test Item Value Reference Range Interpretation Comments POCT GLU (test code = 2392619055) 200 mg/dL 70-110 H Lab Interpretation (test code = Abnormal 80419-8) [facility] GLUCOSE (AUTOMATED)2022-06-25 17:12:53 Test Item Value Reference Range Interpretation Comments POCT GLU (test code = 3587051616) 200 mg/dL 70-110 H Lab Interpretation (test code = Abnormal 02433-0) [facility] GLUCOSE (AUTOMATED)2022-06-25 14:20:12 Test Item Value Reference Range Interpretation Comments POCT GLU (test code = 0280881774) 171 mg/dL 70-110 H Lab Interpretation (test code = Abnormal 06477-6) [facility] GLUCOSE (AUTOMATED)2022-06-25 14:20:12 Test Item Value Reference Range Interpretation Comments POCT GLU (test code = 4526984620) 171 mg/dL 70-110 H Lab Interpretation (test code = Abnormal 63102-4) [facility] GLUCOSE (AUTOMATED)2022-06-25 01:30:55 Test Item Value Reference Range Interpretation Comments POCT GLU (test code = 6241695534) 207 mg/dL 70-110 H Lab Interpretation (test code = Abnormal 63157-0) [facility] GLUCOSE (AUTOMATED)2022-06-25 01:30:55 Test Item Value Reference Range Interpretation Comments POCT GLU (test code = 0103817386) 207 mg/dL 70-110 H Lab Interpretation (test code = Abnormal 58003-9) [facility] GLUCOSE (AUTOMATED)2022-06-24 22:26:40 Test Item Value Reference Range Interpretation Comments POCT GLU (test code = 3445245677) 195 mg/dL 70-110 H Lab Interpretation (test code = Abnormal 21680-7) [facility] GLUCOSE (AUTOMATED)2022-06-24 22:26:40 Test Item Value Reference Range Interpretation Comments POCT GLU (test code = 9490800915) 195 mg/dL 70-110 H Lab Interpretation (test code = Abnormal 27356-7) [facility] GLUCOSE (AUTOMATED)2022-06-24 18:07:03 Test Item Value Reference Range Interpretation Comments POCT GLU (test code = 0581048538) 376 mg/dL 70-110 H Lab Interpretation (test code = Abnormal 53659-3) [facility] GLUCOSE (AUTOMATED)2022-06-24 18:07:03 Test Item Value Reference Range Interpretation Comments POCT GLU (test code = 4104602611) 376 mg/dL 70-110 H Lab Interpretation (test code = Abnormal 59135-0) [facility] 17:45:35 Test Item Value Reference Range Interpretation Comments MAGNESIUM (test code = 9945673304) 1.9 mg/dL 1.7-2.4 Lab Interpretation (test code = Normal 82950-7) [facility] (NA, K, CL, CO2, GLUCOSE, BUN, CREATININE, CA)2022-06-24 17:45:35 Test Item Value Reference Range Interpretation Comments NA (test code = 137 mmol/L 135-145 3986430366) K (test code = 3.3 mmol/L 3.5-5 L 9330211822) CL (test code = 101 mmol/L 98-108 4327181690) CO2 TOTAL (test code = 25 mmol/L 23-31 8113166473) AGAP (test code = 2-16 5858400961) BUN (test code = 17 mg/dL 7-23 2910130752) GLUCOSE (test code = 264 mg/dL 70-110 H 5605450915) CREATININE (test code = 0.94 mg/dL 0.5-1.04 5095996337) CALCIUM (test code = 9.1 mg/dL 8.6-10.6 9075025482) eGFR (test code = mL/min/1.73m2 8487120539) WINDY (test code = WINDY) Association of [...] tests). Lab Interpretation Abnormal (test code = 37866-5) [facility]14 17:45:35 Test Item Value Reference Range Interpretation Comments MAGNESIUM (test code = 6530970766) 1.9 mg/dL 1.7-2.4 Lab Interpretation (test code = Normal 30361-0) [facility] (NA, K, CL, CO2, GLUCOSE, BUN, CREATININE, CA)2022-06-24 17:45:35 Test Item Value Reference Range Interpretation Comments NA (test code = 137 mmol/L 135-145 6788212882) K (test code = 3.3 mmol/L 3.5-5 L 6933309718) CL (test code = 101 mmol/L 98-108 0227263683) CO2 TOTAL (test code = 25 mmol/L 23-31 1476276924) AGAP (test code = 2-16 3075503653) BUN (test code = 17 mg/dL 7- 6798753703) GLUCOSE (test code = 264 mg/dL 70-110 H 3406163070) CREATININE (test code = 0.94 mg/dL 0.5-1.04 5188448685) CALCIUM (test code = 9.1 mg/dL 8.6-10.6 5771344184) eGFR (test code = mL/min/1.73m2 5695435777) WINDY (test code = WINDY) Association of [...] tests). Lab Interpretation Abnormal (test code = 12051-9) [facility] WITHOUT [id number] 17:37:52 Test Item Value Reference Range Interpretation Comments WBC (test code = 6690-2) See_Comment [A utomated message] The system Venn[employer] generated this result transmit timur reference range : 4.30 - 11.10 10*3/?L. The reference range was not used to interpret this result as normal/abnormal . RBC (test code = 789-8) See_Comment [Au tomated message] The system Venn[employer] generated this result transmit timur reference range [...] 777-3) See_Comment [Au tomated message] The system Venn[employer] generated this result transmit timur reference range : 166 - 358 10*3/?L. The reference range was not used to interpret this result as normal/abnormal . MPV (test code = 9.0 fL 9.5-12.9 L 25888-1) RDW-CV (test code = 16.6 % 12-15.5 H 788-0) RDW-SD (test code = 44.0 fL 39-49.9 80674-9) NRBC x10^3 (test code = See_Comment [Au tomated message] 7643093986) The system Venn[employer] generated this result transmit timur reference range : 10*3/?L. The reference range was not used to interpret this result as normal/abnormal . NRBC/100 WBC (test code See_Comment [Au tomated message] = 6111014078) The system [facility] generated this result transmit timur reference range : 0.0 - 10.0 /100 WBC s. The reference r fernando was not used to interpret this result as normal/abnormal . IPF % (test code = 0090657530) Lab Interpretation (test Abnormal code = 36673-3) [facility] WITHOUT [id number] 17:37:52 Test Item Value Reference Range Interpretation Comments WBC (test code = 6690-2) See_Comment [A utomated message] The system [facility] generated this result transmit timur reference range : 4.30 - 11.10 10*3/?L. The reference range was not used to interpret this result as normal/abnormal . RBC (test code = 789-8) See_Comment [Au tomated message] The system [facility] generated this result transmit timur reference [...] 777-3) See_Comment [Au tomated message] The system [facility] generated this result transmit timur reference range : 166 - 358 10*3/?L. The reference range was not used to interpret this result as normal/abnormal . MPV (test code = 9.0 fL 9.5-12.9 L 22181-2) RDW-CV (test code = 16.6 % 12-15.5 H 788-0) RDW-SD (test code = 44.0 fL 39-49.9 80054-2) NRBC x10^3 (test code = See_Comment [Au tomated message] 4893801655) The system [facility] generated this result transmit timur reference range : 10*3/?L. The reference range was not used to interpret this result as normal/abnormal . NRBC/100 WBC (test code See_Comment [Au tomated message] = 5103823866) The system [facility] generated this result transmit timur reference range : 0.0 - 10.0 /100 WBC s. The reference r fernando was not used to interpret this result as normal/abnormal . IPF % (test code = 6289629367) Lab Interpretation (test Abnormal code = 68635-8) [facility] GLUCOSE (AUTOMATED)2022-06-24 13:05:03 Test Item Value Reference Range Interpretation Comments POCT GLU (test code = 0961454852) 175 mg/dL 70-110 H Lab Interpretation (test code = Abnormal 77198-0) [facility] 13:05:03 Test Item Value Reference Range Interpretation Comments POCT GLU (test code = 1635858466) 175 mg/dL 70-110 H Lab Interpretation (test code = Abnormal 51488-9) [facility]22-[facility]-24 03:59:23 Test Item Value Reference Range Interpretation Comments POCT GLU (test code = 7326223329) 200 mg/dL 70-110 H Lab Interpretation (test code = Abnormal 44377-0) [facility] GLUCOSE (AUTOMATED)2022-06-24 03:59:23 Test Item Value Reference Range Interpretation Comments POCT GLU (test code = 7135937262) 200 mg/dL 70-110 H Lab Interpretation (test code = Abnormal 71794-9) [facility] 22:39:44 Test Item Value Reference Range Interpretation Comments POCT GLU (test code = 9815874185) 210 mg/dL 70-110 H Lab Interpretation (test code = Abnormal 11065-7) [facility] GLUCOSE (AUTOMATED)2022-06-23 22:39:44 Test Item Value Reference Range Interpretation Comments POCT GLU (test code = 2324475712) 210 mg/dL 70-110 H Lab Interpretation (test code = Abnormal 25232-5) [facility] 17:10:04 Test Item Value Reference Range Interpretation Comments POCT GLU (test code = 4459105287) 189 mg/dL 70-110 H Lab Interpretation (test code = Abnormal 36051-7) [facility]22-[facility]-23 17:10:04 Test Item Value Reference Range Interpretation Comments POCT GLU (test code = 8317605340) 189 mg/dL 70-110 H Lab Interpretation (test code = Abnormal 21273-3) [facility] GLUCOSE (AUTOMATED)2022-06-23 12:33:02 Test Item Value Reference Range Interpretation Comments POCT GLU (test code = 9934151691) 193 mg/dL 70-110 H Lab Interpretation (test code = Abnormal 51003-7) [facility] GLUCOSE (AUTOMATED)2022-06-23 12:33:02 Test Item Value Reference Range Interpretation Comments POCT GLU (test code = 3749638388) 193 mg/dL 70-110 H Lab Interpretation (test code = Abnormal 05622-0) [facility] GLUCOSE (AUTOMATED)2022-06-23 02:42:00 Test Item Value Reference Range Interpretation Comments POCT GLU (test code = 1967881932) 166 mg/dL 70-110 H Lab Interpretation (test code = Abnormal 68953-4) [facility] GLUCOSE (AUTOMATED)2022-06-23 02:42:00 Test Item Value Reference Range Interpretation Comments POCT GLU (test code = 1934520905) 166 mg/dL 70-110 H Lab Interpretation (test code = Abnormal 51423-9) [facility] [id number] 23:14:43 Test Item Value Reference Range Interpretation Comments PHOSPHORUS (test code = 3.1 mg/dL 2.5-5 Slig ht hemolysis 7213420014) Lab Interpretation (test Normal code = 81166-8) [facility] [id number] 23:14:43 Test Item Value Reference Range Interpretation Comments PHOSPHORUS (test code = 3.1 mg/dL 2.5-5 Slig ht hemolysis 0142970348) Lab Interpretation (test Normal code = 97704-2) [facility] GLUCOSE (AUTOMATED)2022-06-22 22:01:14 Test Item Value Reference Range Interpretation Comments POCT GLU (test code = 7627065278) 216 mg/dL 70-110 H Lab Interpretation (test code = Abnormal 57765-0) [facility] GLUCOSE (AUTOMATED)2022-06-22 22:01:14 Test Item Value Reference Range Interpretation Comments POCT GLU (test code = 0751272770) 216 mg/dL 70-110 H Lab Interpretation (test code = Abnormal 97560-1) [facility] GLUCOSE (AUTOMATED)2022-06-22 16:56:03 Test Item Value Reference Range Interpretation Comments POCT GLU (test code = 5182125682) 170 mg/dL 70-110 H Lab Interpretation (test code = Abnormal 76192-8) [facility] GLUCOSE (AUTOMATED)2022-06-22 16:56:03 Test Item Value Reference Range Interpretation Comments POCT GLU (test code = 5244998527) 170 mg/dL 70-110 H Lab Interpretation (test code = Abnormal 62506-6) [facility] GLUCOSE (AUTOMATED)2022-06-22 13:15:17 Test Item Value Reference Range Interpretation Comments POCT GLU (test code = 9719911557) 186 mg/dL 70-110 H Lab Interpretation (test code = Abnormal 32003-5) [facility] GLUCOSE (AUTOMATED)2022-06-22 13:15:17 Test Item Value Reference Range Interpretation Comments POCT GLU (test code = 0380292216) 186 mg/dL 70-110 H Lab Interpretation (test code = Abnormal 46020-7) [facility] GLUCOSE (AUTOMATED)2022-06-22 00:55:28 Test Item Value Reference Range Interpretation Comments POCT GLU (test code = 5304335955) 201 mg/dL 70-110 H Lab Interpretation (test code = Abnormal 15144-8) [facility] GLUCOSE (AUTOMATED)2022-06-22 00:55:28 Test Item Value Reference Range Interpretation Comments POCT GLU (test code = 0501053520) 201 mg/dL 70-110 H Lab Interpretation (test code = Abnormal 45864-1) [facility] 22:48:56 Test Item Value Reference Range Interpretation Comments Height (test code = in 7006646113) Weight (test code = lbs 8521609107) Systolic BP (test code = mmHg 8471712870) Diastolic BP (test code mmHg = 9954076417) Heart Rate (test code = bpm 1384070754) LVOT stroke volume (test 79.70 cm3 code = 4223770324) EF(Teich) (test code = 56.30 % 9376336619) LVIDD (test code = 4.60 cm 9727407167) LVIDS (test code = 3.30 cm 1503916024) Left Ventricular End 43.5 mL Systolic Volume by Teichholz Method (test code = 1460800) Left Ventricular End 99.6 mL Diastolic Volume by Teichholz Method (test code = 2201644) IVS (test code = 1.19 cm 7050651534) LVPWD (test code = 1.08 cm 0814941306) LVOT diameter (test code 2.05 cm = 6855339719) LVOT area (test code = 3.30 cm2 5986630424) FS (test code = 29 % 5029025487) MV Peak E Tian (test code 84.6 cm/s = 4719292298) MV Peak A Tian (test code 110.3 cm/s = 0307806705) E/A ratio (test code = ratio 6914165014) E wave decelartion time 0.25 s (test code = 2417919656) MV E/e' septal (test 4.0 cm/s code = 2470913645) LA Volume Index (BP) 36.7 mL/m2 (test code = 4951189414) LA volume (BP) (test 65.4 mL code = 6631921830) LVOT peak tian (test code 100.1 cm/s = 0311291509) LVOT mn grad (test code mmHg = 8249977669) BSA (test code = 1.78 m2 9494584713) LA size (test code = 3.4 cm 6900537257) LAV(MOD-sp2) (test code 61.30 mL = 0008284534) LAV(MOD-sp4) (test code 58.90 mL = 0391063746) Tapse (test code = 2.48 cm 5009236036) AV LVOT peak gradient mmHg (test code = 9557504645) LVOT peak VTI (test code 24.2 cm = 6248859056) LV V1 mean (test code = 64.80 cm/s 2665105204) MV Prop V (test code = 31.70 cm/s 9551963240) Ao root diam (test code 3.40 cm = 1524114339) Aortic root (test code = 3.4 cm 6047495121) Ao root annulus (test 3.4 cm code = 3036936282) PW (test code = 1.08 cm 0.6-1.3 4549556169) EF - 2D (test code = 56.30 % 14995503) Interventricular Septum 1.19 cm Diastolic Thickness by 2D (test code = 7366097) Left Ventricular Cardiac 4.8 L/min Output (test code = 0243105) Aortic HR (test code = BPM 0966399171) Aortic valve mean 86.9 cm/s velocity (test code = 7864195903) Ao peak tian (test code = 153.7 cm/s 0300611032) Ao VTI (test code = 33.7 cm 1367659198) AV area by cont VTI 2.4 cm2 (test code = 1121143645) AV area peak tian (test 2.2 cm2 code = 3789863945) Ao max PG (test code = 9.40 mm[Hg] 6716813008) AV peak gradient (test mmHg code = 3791385316) AV valve area (test code 2.37 cm2 = 6991681216) AV mean gradient (test mmHg code = 6075676665) IVC Diam Exp(MM) (test 1.87 cm code = 0612949983) IVC Diam Ins(MM) (test 0.78 cm code = 5439210802) Radiology Study observation (narrative) (test code = 42457-4) WINDY (test code = WINDY) ?Left?Ventricle: Left [...] enhancing agent used. Patient exhibited sinus bradycardia. [facility] 22:48:56 Test Item Value Reference Range Interpretation Comments Height (test code = in 5555695924) Weight (test code = lbs 8265208404) Systolic BP (test code = mmHg 6115353605) Diastolic BP (test code mmHg = 3031965717) Heart Rate (test code = bpm 6504503814) LVOT stroke volume (test 79.70 cm3 code = 0321856412) EF(Teich) (test code = 56.30 % 9622418158) LVIDD (test code = 4.60 cm 1430607367) LVIDS (test code = 3.30 cm 8915657590) Left Ventricular End 43.5 mL Systolic Volume by Teichholz Method (test code = 7330463) Left Ventricular End 99.6 mL Diastolic Volume by Teichholz Method (test code = 6426537) IVS (test code = 1.19 cm 7616330827) LVPWD (test code = 1.08 cm 3927469582) LVOT diameter (test code 2.05 cm = 5964915377) LVOT area (test code = 3.30 cm2 3597729595) FS (test code = 29 % 2219786271) MV Peak E Tian (test code 84.6 cm/s = 8226499567) MV Peak A Tian (test code 110.3 cm/s = 4312707390) E/A ratio (test code = ratio 8474465353) E wave decelartion time 0.25 s (test code = 8053077719) MV E/e' septal (test 4.0 cm/s code = 4912389264) LA Volume Index (BP) 36.7 mL/m2 (test code = 1433687469) LA volume (BP) (test 65.4 mL code = 8658914016) LVOT peak tian (test code 100.1 cm/s = 1484118392) LVOT mn grad (test code mmHg = 8144000847) BSA (test code = 1.78 m2 0452540914) LA size (test code = 3.4 cm 8325205445) LAV(MOD-sp2) (test code 61.30 mL = 1252906592) LAV(MOD-sp4) (test code 58.90 mL = 1633042166) Tapse (test code = 2.48 cm 0960095154) AV LVOT peak gradient mmHg (test code = 3142284760) LVOT peak VTI (test code 24.2 cm = 8050770530) LV V1 mean (test code = 64.80 cm/s 4120282021) MV Prop V (test code = 31.70 cm/s 0660205805) Ao root diam (test code 3.40 cm = 0029310081) Aortic root (test code = 3.4 cm 1069661291) Ao root annulus (test 3.4 cm code = 4174025790) PW (test code = 1.08 cm 0.6-1.9 2754877758) EF - 2D (test code = 56.30 % 64854545) Interventricular Septum 1.19 cm Diastolic Thickness by 2D (test code = 6466026) Left Ventricular Cardiac 4.8 L/min Output (test code = 5842909) Aortic HR (test code = BPM 0894871497) Aortic valve mean 86.9 cm/s velocity (test code = 2870187218) Ao peak tian (test code = 153.7 cm/s 6504288776) Ao VTI (test code = 33.7 cm 6845884302) AV area by cont VTI 2.4 cm2 (test code = 3384465521) AV area peak tian (test 2.2 cm2 code = 2886603693) Ao max PG (test code = 9.40 mm[Hg] 0247218032) AV peak gradient (test mmHg code = 9318094876) AV valve area (test code 2.37 cm2 = 6796868346) AV mean gradient (test mmHg code = 2978042305) IVC Diam Exp(MM) (test 1.87 cm code = 6251364233) IVC Diam Ins(MM) (test 0.78 cm code = 6466390065) Radiology Study observation (narrative) (test code = 96424-6) WINDY (test code = WINDY) ?Left?Ventricle: Left [...] Interpretation Comments POCT GLU (test code = 0346421175) 181 mg/dL 70-110 H Lab Interpretation (test code = Abnormal 95143-4) [facility] GLUCOSE (AUTOMATED)2022-06-21 21:50:29 Test Item Value Reference Range Interpretation Comments POCT GLU (test code = 9082442422) 181 mg/dL 70-110 H Lab Interpretation (test code = Abnormal 70734-5) [facility] GLUCOSE (AUTOMATED)2022-06-21 20:55:06 Test Item Value Reference Range Interpretation Comments POCT GLU (test code = 5182109589) 159 mg/dL 70-110 H Lab Interpretation (test code = Abnormal 47177-9) [facility] GLUCOSE (AUTOMATED)2022-06-21 20:55:06 Test Item Value Reference Range Interpretation Comments POCT GLU (test code = 2606038261) 159 mg/dL 70-110 H Lab Interpretation (test code = Abnormal 40974-2) [facility] [id number] 11:32:00 Test Item Value Reference Range Interpretation Comments POC-GLUCOSE METER 235 mg/dL 70-110 H : TESTED A T [facility] 6720 (BEAKER) (test code = [facility], 1538) 49187: Personal Lines Account Manager/Techni chika ID = [id number] for QUEEN LASSITER POCT-GLUCOSE [id number] 07:37:00 Test Item Value Reference Range Interpretation Comments POC-GLUCOSE METER 190 mg/dL 70-110 H : TESTED A T [facility] 6720 (BEAKER) (test code = [facility], 1538) 32161: Personal Lines Account Manager/Techni chika ID = [id number] for QUEEN LASSITER CBC W/PLT COUNT & AUTO [id number] 06:10:00 Test Item Value Reference Range Interpretation [...] PERCENT (BEAKER) (test code = 2801) POCT-GLUCOSE [id number] 22:16:00 Test Item Value Reference Range Interpretation Comments POC-GLUCOSE METER 275 mg/dL 70-110 H : TESTED Lilli Mendez [facility] 6720 (BEAKER) (test code = [facility], 1538) 27401: Personal Lines Account Manager/Techni chika ID = [id number] for IDANIA RODRÍGUEZ RODNEYAKSHAT POCT-GLUCOSE [id number] 16:44:00 Test Item Value Reference Range Interpretation Comments POC-GLUCOSE METER 200 mg/dL 70-110 H : TESTED A T [facility] 6720 (BEAKER) (test code = [facility], 1538) 92026: Personal Lines Account Manager/Techni chika ID = [id number] for QUEEN LASSITER POCT-GLUCOSE [id number] 12:11:00 Test Item Value Reference Range Interpretation Comments POC-GLUCOSE METER 180 mg/dL 70-110 H : TESTED A T [facility] 6720 (BEAKER) (test code = [facility], 1538) 00658: Personal Lines Account Manager/Techni chika ID = [id number] for SHAYY ALBRIGHT POCT-GLUCOSE [id number] 08:17:00 Test Item Value Reference Range Interpretation Comments POC-GLUCOSE METER 158 mg/dL 70-110 H : TESTED A T [facility] 6720 (BEAKER) (test code = [facility], 153) 86898: Personal Lines Account Manager/Techni chika ID = [id number] for NW PHILL ALEXANDEROMA CBC W/PLT COUNT & AUTO [id number] 04:14:00 Test Item Value Reference Range Interpretation [...] PERCENT (BEAKER) (test code = 2801) POCT-GLUCOSE [id number] 16:12:00 Test Item Value Reference Range Interpretation Comments POC-GLUCOSE METER 233 mg/dL 70-110 H : TESTED A T [facility] 6720 (BEAKER) (test code = [facility], 1538) 21364: Personal Lines Account Manager/Techni chika ID = [id number] for SHAYY ALBRIGHT POCT-GLUCOSE [id number] 12:02:00 Test Item Value Reference Range Interpretation Comments POC-GLUCOSE METER 190 mg/dL 70-110 H : TESTED A T [facility] 6720 (BEAKER) (test code = [facility], 1538) [address]: Personal Lines Account Manager/Techni chika ID = [id number] for SHAYY ALBRIGHT STOOL CULTURE + SHIGA [id number] 09:19:00 Test Item Value Reference Range Interpretation Comments CULTURE (BEAKER) No Salmonella, Shigella (test code = 1095) or Campylobacter isolated POCT-GLUCOSE [id number] 07:46:00 Test Item Value Reference Range Interpretation Comments POC-GLUCOSE METER 174 mg/dL 70-110 H : TESTED A T [facility] 6720 (BEAKER) (test code = [place], 1538) [address]: Personal Lines Account Manager/Techni chika ID = [id number] for SHAYY ALBRIGHT CBC W/PLT COUNT & AUTO [id number] 06:53:00 Test Item Value Reference Range Interpretation [...] 0-1 PERCENT (BEAKER) (test code = 2801) [id number] 06:20:00 Test Item Value Reference Range Interpretation Comments MAGNESIUM (BEAKER) 1.7 mg/dL 1.6-2.6 Specimen slightly (test code = 627) hemolyzed Personal Lines Account Manager ID - LATA WBASIC METABOLIC [id number] 06:20:00 Test Item Value Reference Range Interpretation [...] S NOT APPLICABLE FOR DIALYSIS PATIEN TS. Personal Lines Account Manager ID - LATA WHEPATIC FUNCTION [id number] 06:20:00 Test Item Value Reference Range Interpretation [...] Specimen slightly (test code = 347) hemolyzed Personal Lines Account Manager ID - LATA WPOCT-GLUCOSE [id number] 21:46:00 Test Item Value Reference Range Interpretation Comments POC-GLUCOSE METER 181 mg/dL 70-110 H : TESTED A T [facility] 6720 (BEAKER) (test code = [place], 1538) 77[address]: Personal Lines Account Manager/Techni chika ID = [id number] for LETTY DELATORRETU CT, BRAIN, WITHOUT [id number] 18:11:00FINAL REPORT CT, BRAIN, WITHOUT CONTRAST INDICATION: [...] Burch MDReport Verified Date/Time: 03/26/2020 18:11:57 POCT-GLUCOSE [id number] 17:31:00 Test Item Value Reference Range Interpretation Comments POC-GLUCOSE METER 209 mg/dL 70-110 H : Notified RN/MD: (BEAKER) (test code = TESTED AT [facility] 6720 1538) [facility], [address]: Personal Lines Account Manager/Techni chika ID = [id number] for MEERA LEMOS SHIGA TOXIN [id number] 15:19:00 Test Item Value Reference Range Interpretation Comments SHIGA TOXIN 1 (BEAKER) (test Not detected Not detected code = 2177) SHIGA TOXIN 2 (BEAKER) (test Not detected Not detected code = 2179) POCT-GLUCOSE [id number] 11:53:00 Test Item Value Reference Range Interpretation Comments POC-GLUCOSE METER 159 mg/dL 70-110 H : [facility] (test code = [facility], 1538) [address]: Personal Lines Account Manager/Techni chika ID = [id number] for SANDRA HOLLIS STOOL PATH [id number] 11:36:00 Test Item Value Reference Range Interpretation Comments PATHOGEN EXAM CHARGED (BEAKER) (test Done code = 2381) POCT-GLUCOSE [id number] 07:11:00 Test Item Value Reference Range Interpretation Comments POC-GLUCOSE METER 146 mg/dL 70-110 H : [facility] ([facility]ER[facility] (test code = [facility], 1538) [address]: Personal Lines Account Manager/Techni chika ID = [id number] for MILY GROVE [id number] 06:04:00 Test Item Value Reference Range Interpretation Comments MAGNESIUM (BEAKER) (test code = 1.9 mg/dL 1.6-2.6 627) Personal Lines Account Manager ID - PIAYA LBASIC METABOLIC [id number] 06:04:00 Test Item Value Reference Range Interpretation [...] S NOT APPLICABLE FOR DIALYSIS PATIEN TS. Personal Lines Account Manager ID - PIAYA LHEPATIC FUNCTION [id number] 06:04:00 Test Item Value Reference Range Interpretation [...] (test code = 15 U/L 6-55 347) Personal Lines Account Manager ID - PIAYA LCBC W/PLT COUNT & AUTO [id number] 05:20:00 Test Item Value Reference Range Interpretation [...] PERCENT (BEAKER) (test code = 2801) POCT-GLUCOSE [id number] 21:12:00 Test Item Value Reference Range Interpretation Comments POC-GLUCOSE METER 154 mg/dL 70-110 H : TESTED A T [facility] 6720 (BEAKER) (test code = [place], 1538) [address]: Personal Lines Account Manager/Techni chika ID = [id number] for JEREMY GUPTA POCT-GLUCOSE [id number] 17:43:00 Test Item Value Reference Range Interpretation Comments POC-GLUCOSE METER 152 mg/dL 70-110 H : TESTED A T [facility] 6720 (CALI) (test code = [place], 1538) [address]: Personal Lines Account Manager/Techni chika ID = [id number] for PANCHO [place] SARS-COV2/RT-PCR ([facility]2020-03-25 13:40:00 Test Item Value Reference Range Interpretation Comments SARS-COV2/RT-PCR (test code = Negative Not Detected, Negative [id number]) SARS-COV-2 PERFORMING LAB [facility] (test code = 4812066) Negative result for this test determines that [...] of the Act.Fact Sheet for Healthcare Prov iders:https://www.[employer]/sites/default/files/product/documents/Fact_Sheet_HC _Izazvgiex_Uvcp_UFZC-WgL-6.pdfFact Sheet for Healthcare Patients:https://www.[employer]/sites/default/files/product/docume nts/Novg_Ovxzz_Kdghlpkf_Efha_XUMU-OdT-7.pdfPerforming Laboratory:[facility], [place] [address]DDSE-COHQBVN METER 2020-03-25 11:24:00 Test Item Value Reference Range Interpretation Comments POC-GLUCOSE METER 165 mg/dL 70-110 H : TESTED A T [facility] 6720 (CALI) (test code = DINA Jordan [facility], 1538) [address]: Personal Lines Account Manager/Techni chika ID = [id number] for SANDRA HOLLIS TSH/FREE T4 IF [id number] 10:59:00 Test Item Value Reference Range Interpretation Comments THYROID STIMULATING HORMONE 0.622 uIU/mL 0.350-4.940 (BEAKER) (test code = 772) Personal Lines Account Manager ID - WAGNER LHEMOGLOBIN [id number] 10:59:00 Test Item Value Reference Range Interpretation Comments HEMOGLOBIN A1C (BEAKER) (test code = 6.9 % 4.3-6.1 H 368) TROPONIN [id number] 10:50:00 Test Item Value Reference Range Interpretation [...] failure, acidosis, acute neurological disease, and persistent tachyarrhythmia.Personal Lines Account Manager ID - PIAYA LBASIC METABOLIC [id number] 10:42:00 Test Item Value Reference Range Interpretation [...] S NOT APPLICABLE FOR DIALYSIS PATIEN TS. Personal Lines Account Manager ID - WAGNER EPATIC FUNCTION [id number] 10:42:00 Test Item Value Reference Range Interpretation [...] (test code = 10 U/L 6-55 347) Personal Lines Account Manager ID - WAGNER [id number] 10:41:00 Test Item Value Reference Range Interpretation Comments PHOSPHORUS (BEAKER) (test code = 3.2 mg/dL 2.3-4.7 604) Personal Lines Account Manager ID - WAGNER [id number] 10:41:00 Test Item Value Reference Range Interpretation Comments MAGNESIUM (BEAKER) (test code = 2.0 mg/dL 1.6-2.6 627) Personal Lines Account Manager ID - WAGNER PLUNKETTOCT-GLUCOSE [id number] 09:10:00 Test Item Value Reference Range Interpretation Comments POC-GLUCOSE METER 116 mg/dL 70-110 H : TESTED A T [facility] 6720 (BEAKER) (test code = DINA Ortega [place], 1538) [address]: Personal Lines Account Manager/Techni chika ID = [id number] for LANCE TRACEY RAD, CHEST, 1 VIEW, NON [id number] 07:49:00Reason for exam:->chest painShould this be performed [...] Hospital Radiology Reading Room C. DIFFICILE GDH [id number] 06:54:00 Test Item Value Reference Range Interpretation Comments CDT TOXIN (test code Negative Negative = [id number]) CDT GDH ANTIGEN (test Negative Negative No ind ication of code = [id number]) Clostridi um difficile infection and n o [...] prior to clinical use.URINALYSIS WITH MICROSCOPIC IF [id number] 06:35:00 Test Item Value Reference Range Interpretation [...] = 463) SOURCE(BEAKER) (test code = 2795) Personal Lines Account Manager ID - [auto]Personal Lines Account Manager ID - techURINALYSIS [id number] 06:35:00 Test Item Value Reference Range Interpretation Comments RBC UA (BEAKER) (test code = 519) 3 /HPF WBC UA (BEAKER) (test code = 520) 11 /HPF BACTERIA (BEAKER) (test code = 517) Rare SQUAMOUS EPITHELIAL (BEAKER) (test 1 /HPF code = 516) Personal Lines Account Manager ID - techPOCT-GLUCOSE [id number] 05:08:00 Test Item Value Reference Range Interpretation Comments POC-GLUCOSE METER 128 mg/dL 70-110 H : TESTED A T [facility] 6720 (BEAKER) (test code = [place], 1538) [address]: Personal Lines Account Manager/Techni chika ID = [id number] for As loreneyesiMeena CHEM [id number] 12:00:00 Test Item Value Reference Range Interpretation Comments eGFR (test code = eGFR) 86 [facility] Trans[employer] [id number] 12:00:00 Test Item Value Reference Range Interpretation Comments AGAP (test code = AGAP) 9.5 10.0-20.0 [facility] AccuRevCHEM [id number] 12:00:00 Test Item Value Reference Range Interpretation Comments CO2 (test code = CO2) 33 24-32 [facility] AccuRevCHEM [id number] 12:00:00 Test Item Value Reference Range Interpretation Comments Calcium Lvl (test code = Calcium Lvl) 8.7 8.5-10.5 [facility] [employer] [id number] 12:00:00 Test Item Value Reference Range Interpretation Comments Glucose Lvl (test code = Glucose Lvl) 201 70-99 [facility]2018-06-19 12:00:00 Test Item Value Reference Range Interpretation Comments BUN (test code = BUN) 19 7- [facility]2018-06-19 12:00:00 Test Item Value Reference Range Interpretation Comments Creatinine Lvl (test code = Creatinine 0.61 0.50-1.40 Lvl) [facility]2018-06-19 12:00:00 Test Item Value Reference Range Interpretation Comments Sodium Lvl (test code = Sodium Lvl) 127 135-145 [facility]2018-06-19 12:00:00 Test Item Value Reference Range Interpretation Comments Chloride Lvl (test code = Chloride Lvl) 89 95-109 [facility]2018-06-19 12:00:00 Test Item Value Reference Range Interpretation Comments Potassium Lvl (test code = Potassium 4.5 3.5-5.1 Lvl) [facility]2018-06-18 08:31:00 Test Item Value Reference Range Interpretation Comments eGFR (test code = eGFR) 86 [facility]2018-06-18 08:31:00 Test Item Value Reference Range Interpretation Comments BUN (test code = BUN) 18 7 [facility]2018-06-18 08:31:00 Test Item Value Reference Range Interpretation Comments Glucose Lvl (test code = Glucose Lvl) 181 70-99 [facility]2018-06-18 08:31:00 Test Item Value Reference Range Interpretation Comments Creatinine Lvl (test code = Creatinine 0.61 0.50-1.40 Lvl) [facility]2018-06-18 08:31:00 Test Item Value Reference Range Interpretation Comments Calcium Lvl (test code = Calcium Lvl) 8.5 8.5-10.5 [facility]2018-06-18 08:31:00 Test Item Value Reference Range Interpretation Comments CO2 (test code = CO2) 34 24-32 [facility]2018-06-18 08:31:00 Test Item Value Reference Range Interpretation Comments Chloride Lvl (test code = Chloride Lvl) 88 95-109 [facility]2018-06-18 08:31:00 Test Item Value Reference Range Interpretation Comments Potassium Lvl (test code = Potassium 4.3 3.5-5.1 Lvl) [facility]2018-06-18 08:31:00 Test Item Value Reference Range Interpretation Comments Sodium Lvl (test code = Sodium Lvl) 131 135-145 [facility]2018-06-18 08:31:00 Test Item Value Reference Range Interpretation Comments AGAP (test code = AGAP) 13.3 10.0-20.0 [id number] 08:31:00 Test Item Value Reference Range Interpretation Comments Hgb (test code = Hgb) 9.4 12.0-16.0 [facility] [id number] 08:31:00 Test Item Value Reference Range Interpretation Comments RBC (test code = RBC) 3.38 4.20-5.40 [facility] HospitalVpxgameZDWHZHISDM3993-57-29 08:31:00 Test Item Value Reference Range Interpretation Comments WBC (test code = WBC) 8.8 3.7-10.4 [facility] HospitalDrfjpszUADSDXWWBA7178-36-68 08:31:00 Test Item Value Reference Range Interpretation Comments Hct (test code = Hct) 27.7 36.0-48.0 [facility] HospitalOjeqolwBNGITNODOH1906-03-38 08:31:00 Test Item Value Reference Range Interpretation Comments MPV (test code = MPV) 8.5 7.4-10.4 [facility] HospitalYdtveezZENLLKLVIE8074-05-07 08:31:00 Test Item Value Reference Range Interpretation Comments Platelet (test code = Platelet) 213 133-450 [facility] HospitalDjflrptJETCGNMJRI7191-17-95 08:31:00 Test Item Value Reference Range Interpretation Comments RDW (test code = RDW) 15.1 11.5-14.5 [facility] HospitalCjbvjteLSLFNZYAGN9367-85-11 08:31:00 Test Item Value Reference Range Interpretation Comments MCHC (test code = MCHC) 34.0 32.0-36.0 [facility] HospitalCcgbxfnQHITSZIZVH6494-51-11 08:31:00 Test Item Value Reference Range Interpretation Comments MCH (test code = MCH) 27.8 pg 27.0-31.0 [facility] HospitalWrpalfjWRAXQHVRIP4872-80-95 08:31:00 Test Item Value Reference Range Interpretation Comments MCV (test code = MCV) 81.8 80.0-98.0 [facility] HospitalJpwifilMULODQXMGU5351-76-91 08:31:00 Test Item Value Reference Range Interpretation Comments Lymphocytes (test code = Lymphocytes) 11.3 20.0-40.0 [facility] HospitalLbnctwdQGKXLNNQQH0182-19-56 08:31:00 Test Item Value Reference Range Interpretation Comments Segs (test code = Segs) 81.3 45.0-75.0 [facility] HospitalEauapjeXGKPBWRSMR1179-62-46 08:31:00 Test Item Value Reference Range Interpretation Comments Basophils (test code = 0.3 See_Comment [Aut omated message] The Basophils) system which ge nerated this result tra nsmitted reference range : <=1.0. The reference r fernando was not used to int erpret this result as normal/abnormal . [facility] HospitalUqqtdvkGKFXDZUVPJ8088-63-53 08:31:00 Test Item Value Reference Range Interpretation Comments Eosinophils (test code = 2.2 See_Comment [A utomated message] The Eosinophils) system which ge nerated this result tra nsmitted reference range : <=4.0. The reference r fernando was not used to int erpret this result as normal/abnormal . [facility] HospitalBppqxyaVONDGXXNWY6899-83-44 08:31:00 Test Item Value Reference Range Interpretation Comments Monocytes (test code = Monocytes) 4.9 2.0-12.0 [facility] HospitalCjzyigfZNOUMHODSQ0496-38-10 08:31:00 Test Item Value Reference Range Interpretation Comments Lymphocytes # (test code = Lymphocytes 1.0 1.0-5.5 #) [facility] HospitalUqkrknhZRSRYANYJE3848-08-73 08:31:00 Test Item Value Reference Range Interpretation Comments Segs-Bands # (test code = Segs-Bands #) 7.2 1.5-8.1 [facility] HospitalKvvynnuLPGXMMXUYC9968-69-75 08:31:00 Test Item Value Reference Range Interpretation Comments Eosinophils # (test code 0.2 See_Comment [A utomated message] The = Eosinophils #) system whic h generated this result tra nsmitted reference range : <=0.5. The reference r fernando was not used to int erpret this result as normal/abnormal . [facility] HospitalQkqsyxrUTGSQQSUUU6825-83-01 08:31:00 Test Item Value Reference Range Interpretation Comments Monocytes # (test code 0.4 See_Comment [Aut omated message] The = Monocytes #) system which generated this result tra nsmitted reference range : <=0.8. The reference r fernando was not used to int erpret this result as normal/abnormal . [facility] [id number] 06:00:00 Test Item Value Reference Range Interpretation Comments Calcium Lvl (test code = Calcium Lvl) 8.8 8.5-10.5 [facility]2018-06-17 06:00:00 Test Item Value Reference Range Interpretation Comments Chloride Lvl (test code = Chloride Lvl) 84 95-109 [facility]2018-06-17 06:00:00 Test Item Value Reference Range Interpretation Comments AGAP (test code = AGAP) 12.4 10.0-20.0 [facility] [id number] 06:00:00 Test Item Value Reference Range Interpretation Comments CO2 (test code = CO2) 37 24-32 [facility]2018-06-17 06:00:00 Test Item Value Reference Range Interpretation Comments eGFR (test code = eGFR) 88 [facility]2018-06-17 06:00:00 Test Item Value Reference Range Interpretation Comments Glucose Lvl (test code = Glucose Lvl) 146 70-99 [facility]2018-06-17 06:00:00 Test Item Value Reference Range Interpretation Comments BUN (test code = BUN) 13 7-22 [facility]2018-06-17 06:00:00 Test Item Value Reference Range Interpretation Comments Creatinine Lvl (test code = Creatinine 0.57 0.50-1.40 Lvl) [facility]2018-06-17 06:00:00 Test Item Value Reference Range Interpretation Comments Sodium Lvl (test code = Sodium Lvl) 130 135-145 [facility] [id number] 06:00:00 Test Item Value Reference Range Interpretation Comments Potassium Lvl (test code = Potassium 3.4 3.5-5.1 Lvl) [facility] [id number] 06:00:00 Test Item Value Reference Range Interpretation Comments Magnesium Lvl (test code = Magnesium 2.0 1.8-2.4 Lvl) [facility]ARD[facility] [id number] 06:00:00 Test Item Value Reference Range Interpretation Comments BNP (test code = BNP) 188 [facility]2018-06-17 06:00:00 Test Item Value Reference Range Interpretation Comments Phosphorus (test code = Phosphorus) 2.7 2.5-4.5 [facility]2018-06-16 15:56:00 Test Item Value Reference Range Interpretation Comments U Osmolality (test code = U Osmolality) 311 300-800 [facility]2018-06-16 15:56:00 Test Item Value Reference Range Interpretation Comments U Creatinine (test code = U Creatinine) 10.70 [facility]2018-06-16 15:56:00 Test Item Value Reference Range Interpretation Comments U Sodium (test code = U Sodium) 84 [facility]2018-06-16 15:56:00 Test Item Value Reference Range Interpretation Comments U Potassium (test code = U Potassium) 42.2 [facility]2018-06-16 15:56:00 Test Item Value Reference Range Interpretation Comments U Chloride (test code = U Chloride) 118 [facility]2018-06-16 05:11:00 Test Item Value Reference Range Interpretation Comments Osmolality (test code = Osmolality) 269 280-300 [facility]2018-06-16 05:11:00 Test Item Value Reference Range Interpretation Comments Magnesium Lvl (test code = Magnesium 1.6 1.8-2.4 Lvl) [facility]2018-06-16 05:11:00 Test Item Value Reference Range Interpretation Comments Phosphorus (test code = Phosphorus) 2.3 2.5-4.5 [facility] HospitalNtllrdvEZEJUGYRST1611-40-13 05:11:00 Test Item Value Reference Range Interpretation Comments Segs-Bands # (test code = Segs-Bands #) 6.2 1.5-8.1 [facility] HospitalScmhyuoWOIBAALFDG5872-18-06 05:11:00 Test Item Value Reference Range Interpretation Comments Lymphocytes # (test code = Lymphocytes 1.1 1.0-5.5 #) [facility] HospitalHtcnunaNOGOSQQRDG6835-44-50 05:11:00 Test Item Value Reference Range Interpretation Comments Basophils (test code = 0.2 See_Comment [Aut omated message] The Basophils) system which ge nerated this result tra nsmitted reference range : <=1.0. The reference r fernando was not used to int erpret this result as normal/abnormal . [facility] HospitalLbcninfRMCIHMIIUK3629-62-30 05:11:00 Test Item Value Reference Range Interpretation Comments Eosinophils (test code = 2.3 See_Comment [A utomated message] The Eosinophils) system which ge nerated this result tra nsmitted reference range : <=4.0. The reference r fernando was not used to int erpret this result as normal/abnormal . [facility] HospitalIrztexjRLOYSUWMSE6801-79-81 05:11:00 Test Item Value Reference Range Interpretation Comments Monocytes (test code = Monocytes) 8.1 2.0-12.0 [facility] HospitalNfokkbxNARIZEADUN9602-98-31 05:11:00 Test Item Value Reference Range Interpretation Comments Lymphocytes (test code = Lymphocytes) 13.8 20.0-40.0 [facility] HospitalIetmslrTFXLJHOHPG4230-05-00 05:11:00 Test Item Value Reference Range Interpretation Comments Segs (test code = Segs) 75.6 45.0-75.0 [facility] HospitalSshuxptFIXDJWXKQJ8062-22-53 05:11:00 Test Item Value Reference Range Interpretation Comments Eosinophils # (test code 0.2 See_Comment [A utomated message] The = Eosinophils #) system whic h generated this result tra nsmitted reference range : <=0.5. The reference r fernando was not used to int erpret this result as normal/abnormal . [facility] HospitalYgudhzyJRFCMQXDRO8105-79-17 05:11:00 Test Item Value Reference Range Interpretation Comments Monocytes # (test code 0.7 See_Comment [Aut omated message] The = Monocytes #) system which generated this result tra nsmitted reference range : <=0.8. The reference r fernando was not used to int erpret this result as normal/abnormal . [facility] HospitalUegjzlcJKQPRMEHTK8488-98-10 05:11:00 Test Item Value Reference Range Interpretation Comments Platelet (test code = Platelet) 185 133-450 [facility] HospitalYypwukgMZGOOBKDSH2511-51-14 05:11:00 Test Item Value Reference Range Interpretation Comments RDW (test code = RDW) 15.0 11.5-14.5 [facility] HospitalCwigpckYGFYJSXTMZ3834-50-98 05:11:00 Test Item Value Reference Range Interpretation Comments MCHC (test code = MCHC) 34.1 32.0-36.0 [facility] HospitalOtqbjslAFKZKNCJWV9882-26-51 05:11:00 Test Item Value Reference Range Interpretation Comments MPV (test code = MPV) 8.2 7.4-10.4 [facility] HospitalJuzdhobFCCJUMRCPE9739-69-21 05:11:00 Test Item Value Reference Range Interpretation Comments MCV (test code = MCV) 81.1 80.0-98.0 [facility] HospitalWodmmsjYEKAPAATZZ6953-28-64 05:11:00 Test Item Value Reference Range Interpretation Comments MCH (test code = MCH) 27.7 pg 27.0-31.0 [facility] HospitalGvgfwbqEGVZPWBCOV0608-81-53 05:11:00 Test Item Value Reference Range Interpretation Comments RBC (test code = RBC) 3.46 4.20-5.40 [facility] HospitalYxlkrhaQBQIHNXJHZ0857-20-86 05:11:00 Test Item Value Reference Range Interpretation Comments Hct (test code = Hct) 28.1 36.0-48.0 [facility] HospitalTnvrzdnXKXIAOXKRD7629-48-10 05:11:00 Test Item Value Reference Range Interpretation Comments Hgb (test code = Hgb) 9.6 12.0-16.0 [facility] HospitalFjlsblbZHRUMWFMXE9375-74-08 05:11:00 Test Item Value Reference Range Interpretation Comments WBC (test code = WBC) 8.2 3.7-10.4 [facility]2018-06-16 05:11:00 Test Item Value Reference Range Interpretation Comments Ca Ion WB (test code = Ca Ion WB) 1.05 1.05-1.25 [facility]2018-06-16 05:11:00 Test Item Value Reference Range Interpretation Comments Ca Norm WB (test code = Ca Norm WB) 1.12 1.05-1.25 [facility] HospitalKkqdsguQUXKFVTSZA6609-48-09 05:37:00 Test Item Value Reference Range Interpretation Comments Segs (test code = Segs) 84.3 45.0-75.0 [facility] HospitalGjufylzBLCBJDOQTM0326-59-26 05:37:00 Test Item Value Reference Range Interpretation Comments Lymphocytes (test code = Lymphocytes) 7.4 20.0-40.0 [facility] HospitalSsbyxejNNCHPUCYGA3831-57-18 05:37:00 Test Item Value Reference Range Interpretation Comments Eosinophils # (test code 0.1 See_Comment [A utomated message] The = Eosinophils #) system [facility] h generated this result tra nsmitted reference range : <=0.5. The reference r fernando was not used to int erpret this result as normal/abnormal . [facility] HospitalCphnjomVHWDCZZQOZ2200-82-76 05:37:00 Test Item Value Reference Range Interpretation Comments Lymphocytes # (test code = Lymphocytes 0.6 1.0-5.5 #) [facility] HospitalCbzwkwvOQZFWONTQL1456-76-33 05:37:00 Test Item Value Reference Range Interpretation Comments Monocytes # (test code 0.5 See_Comment [Aut omated message] The = Monocytes #) system which generated this result tra nsmitted reference range : <=0.8. The reference r fernando was not used to int erpret this result as normal/abnormal . [id number] 05:37:00 Test Item Value Reference Range Interpretation Comments Monocytes (test code = Monocytes) 6.7 2.0-12.0 [id number] 05:37:00 Test Item Value Reference Range Interpretation Comments Eosinophils (test code = 1.4 See_Comment [A utomated message] The Eosinophils) system which ge nerated this result tra nsmitted reference range : <=4.0. The reference r fernando was not used to int erpret this result as normal/abnormal . [facility] HospitalJpqlngyAEFIFNPUOO9943-32-05 05:37:00 Test Item Value Reference Range Interpretation Comments Basophils (test code = 0.2 See_Comment [Aut omated message] The Basophils) system which ge nerated this result tra nsmitted reference range : <=1.0. The reference r fernando was not used to int erpret this result as normal/abnormal . [facility] HospitalXukedsfQGFEQZPPBX0739-17-88 05:37:00 Test Item Value Reference Range Interpretation Comments Segs-Bands # (test code = Segs-Bands #) 6.3 1.5-8.1 [facility] HospitalPiooyaxNPBHADCCBE2199-06-26 05:37:00 Test Item Value Reference Range Interpretation Comments MCV (test code = MCV) 82.1 80.0-98.0 [facility] HospitalTpmobcsJVLWVZIJWY0366-87-63 05:37:00 Test Item Value Reference Range Interpretation Comments Hct (test code = Hct) 27.1 36.0-48.0 [facility] HospitalZtaiqlmLRJECLRJQS0711-06-69 05:37:00 Test Item Value Reference Range Interpretation Comments MCHC (test code = MCHC) 34.5 32.0-36.0 [facility] HospitalJgyzxuhRUUIIAKMLE9034-96-05 05:37:00 Test Item Value Reference Range Interpretation Comments MCH (test code = MCH) 28.3 pg 27.0-31.0 [facility] HospitalHtzowiwLOVTRPMSNJ6483-82-88 05:37:00 Test Item Value Reference Range Interpretation Comments RBC (test code = RBC) 3.29 4.20-5.40 [facility] HospitalUaanfdcBGGNIJROBJ3054-79-80 05:37:00 Test Item Value Reference Range Interpretation Comments WBC (test code = WBC) 7.5 3.7-10.4 [facility] Hospit[id number] 05:37:00 Test Item Value Reference Range Interpretation Comments RDW (test code = RDW) 15.1 11.5-14.5 [facility] Hospit[id number] 05:37:00 Test Item Value Reference Range Interpretation Comments Platelet (test code = Platelet) 191 133-450 [facility] HospitalJmeipmyGLSVILHRID8258-54-19 05:37:00 Test Item Value Reference Range Interpretation Comments MPV (test code = MPV) 7.8 7.4-10.4 [facility] HospitalYacgrgmBPDEPEQXGE4544-68-94 05:37:00 Test Item Value Reference Range Interpretation Comments Hgb (test code = Hgb) 9.3 12.0-16.0 [facility]2018-06-15 05:37:00 Test Item Value Reference Range Interpretation Comments Ca Norm WB (test code = Ca Norm WB) 1.08 1.05-1.25 [facility]2018-06-15 05:37:00 Test Item Value Reference Range Interpretation Comments Ca Ion WB (test code = Ca Ion WB) 1.04 1.05-1.25 [facility]2018-06-14 11:46:00 Test Item Value Reference Range Interpretation Comments A/G Ratio (test code = A/G Ratio) 0.6 1 0.7-1.6 [facility]2018-06-14 11:46:00 Test Item Value Reference Range Interpretation Comments Globulin (test code = Globulin) 3.6 2.7-4.2 [facility]2018-06-14 11:46:00 Test Item Value Reference Range Interpretation Comments Bili Indirect (test 0.4 See_Comment [Automa timur message] The code = Bili Indirect) system which generated this result tra nsmitted reference range : <=1.0. The reference r fernando was not used to int erpret this result as normal/abnormal . [facility]2018-06-14 11:46:00 Test Item Value Reference Range Interpretation Comments Bili Direct (test code 0.7 See_Comment [Aut omated message] The = Bili Direct) system which generated this result tra nsmitted reference range : <=0.3. The reference r fernando was not used to int erpret this result as jasmyne l/abnormal. [facility]2018-06-14 11:46:00 Test Item Value Reference Range Interpretation Comments Alk Phos (test code = Alk Phos) 276 39-136 [facility]2018-06-14 11:46:00 Test Item Value Reference Range Interpretation Comments AST (test code = AST) 44 See_Comment [Auto mated message] The system which ge nerated this result transmit timur reference range : <=37. The reference range was not used to interpr et this result as jasmyne l/abnormal. [facility]2018-06-14 11:46:00 Test Item Value Reference Range Interpretation Comments ALT (test code = ALT) 54 See_Comment [Auto mated message] The system which ge nerated this result transmit timur reference range : <=65. The reference range was not used to interpr et this result as jasmyne l/abnormal. [facility]2018-06-14 11:46:00 Test Item Value Reference Range Interpretation Comments Albumin Lvl (test code = Albumin Lvl) 2.3 3.5-5.0 [facility]2018-06-14 11:46:00 Test Item Value Reference Range Interpretation Comments Total Protein (test code = Total 5.9 6.4-8.4 Protein) [facility]2018-06-14 11:46:00 Test Item Value Reference Range Interpretation Comments Bili Total (test code = Bili Total) 1.1 0.2-1.3 [id number] 11:46:00 Test Item Value Reference Range Interpretation Comments Aldosterone (test code = no gt See_Comment [A utomated message] The Aldosterone) system which ge nerated this result tra nsmitted reference range : <=30.0. The reference r fernando was not used to int erpret this result as normal/abnormal . [facility]OnefnbvQLVTZYZSTKJXQ3866-84-33 11:46:00 Test Item Value Reference Range Interpretation Comments Renin Activity (test code = Renin 0.527 0.167-5.380 Activity) [facility] AND [id number] 11:46:00 Test Item Value Reference Range Interpretation Comments UA Urobilinogen (test code = UA <=1.0 mg/dL 0.1-1.0 Urobilinogen) [facility] AND [id number] 11:46:00 Test Item Value Reference Range Interpretation Comments UA Mucus (test code = UA Mucus) Few /LPF [facility] AND [id number] 11:46:00 Test Item Value Reference Range Interpretation Comments UA Sq Epi (test code = UA Sq Occasional /LPF Epi) [facility] AND [id number] 11:46:00 Test Item Value Reference Range Interpretation Comments UA Nitrite (test code Negative (02/22/18 6:46 = UA Nitrite) AM) [facility] AND [id number] 11:46:00 Test Item Value Reference Range Interpretation Comments UA Hyal Cast (test 1 See_Comment [Automat ed message] The code = UA Hyal Cast) system which generated this result transmit timur reference range : <=2. The reference range was not used to interpr et this result as jasmyne l/abnormal. [facility] AND [id number] 11:46:00 Test Item Value Reference Range Interpretation Comments UA RBC (test code = 1 See_Comment [Automa timur message] The UA RBC) system which ge nerated this result transmit timur reference range : <=2. The reference range was not used to interpr et this result as jasmyne l/abnormal. [facility] AND [id number] 11:46:00 Test Item Value Reference Range Interpretation Comments UA Leuk Est (test Negative (02/22/18 6:46 code = UA Leuk Est) AM) [facility] AND [id number] 11:46:00 Test Item Value Reference Range Interpretation Comments UA WBC (test code = 3 See_Comment [Automa timur message] The UA WBC) system which ge nerated this result transmit timur reference range : <=5. The reference range was not used to interpr et this result as jasmyne l/abnormal. [facility] AND [id number] 11:46:00 Test Item Value Reference Range Interpretation Comments UA Turbidity (test code Slight *ABN*(02/22/18 = UA Turbidity) 6:46 AM) [facility] AND [id number] 11:46:00 Test Item Value Reference Range Interpretation Comments UA Color (test code = Yellow *NA*(02/22/18 UA Color) 6:46 AM) [facility] AND [id number] 11:46:00 Test Item Value Reference Range Interpretation Comments UA pH (test code = UA pH) 6.0 1 5.0-8.0 [facility] AND [id number] 11:46:00 Test Item Value Reference Range Interpretation Comments UA Ketones (test code = UA Negative mg/dL Ketones) [facility] AND [id number] 11:46:00 Test Item Value Reference Range Interpretation Comments UA Protein (test code = UA Protein) 20 mg/dL [facility] AND [id number] 11:46:00 Test Item Value Reference Range Interpretation Comments UA Spec Grav (test code = UA Spec 1.011 1 Grav) [facility] AND [id number] 11:46:00 Test Item Value Reference Range Interpretation Comments UA Glucose (test code = UA Glucose) 70 mg/dL [facility] AND [id number] 11:46:00 Test Item Value Reference Range Interpretation Comments UA Bili (test code = Negative *NA*(02/22/18 UA Bili) 6:46 AM) [facility] AND [id number] 11:46:00 Test Item Value Reference Range Interpretation Comments UA Blood (test code = Negative (02/22/18 6:46 UA Blood) AM) [facility]2018-06-14 11:46:00 Test Item Value Reference Range Interpretation Comments U Creatinine (test code = U Creatinine) 22.10 [facility] [id number] 11:46:00 Test Item Value Reference Range Interpretation Comments U Chloride (test code = U Chloride) 155 [facility]2018-06-14 11:46:00 Test Item Value Reference Range Interpretation Comments U Potassium (test code = U Potassium) 61.1 [facility]2018-06-14 11:46:00 Test Item Value Reference Range Interpretation Comments U Sodium (test code = U Sodium) 98 [facility]2018-06-14 04:44:00 Test Item Value Reference Range Interpretation Comments Magnesium Lvl (test code = Magnesium 2.4 1.8-2.4 Lvl) [facility]2018-06-14 04:44:00 Test Item Value Reference Range Interpretation Comments Phosphorus (test code = Phosphorus) 2.6 2.5-4.5 [facility]2018-06-14 04:44:00 Test Item Value Reference Range Interpretation Comments Ca Ion WB (test code = Ca Ion WB) 1.06 1.05-1.25 [facility]2018-06-14 04:44:00 Test Item Value Reference Range Interpretation Comments Ca Norm WB (test code = Ca Norm WB) 1.09 1.05-1.25 [facility]2018-06-13 22:33:00 Test Item Value Reference Range Interpretation Comments Lactic Acid Lvl (test code = Lactic 1.4 0.5-2.2 Acid Lvl) [facility]2018-06-13 20:03:00 Test Item Value Reference Range Interpretation Comments U Osmolality (test code = U Osmolality) 360 300-800 [facility]2018-06-13 20:03:00 Test Item Value Reference Range Interpretation Comments U Sodium (test code = U Sodium) 88 [facility]2018-06-13 15:44:00 Test Item Value Reference Range Interpretation Comments Albumin Lvl (test code = Albumin Lvl) 2.6 3.5-5.0 [facility]2018-06-13 15:44:00 Test Item Value Reference Range Interpretation Comments Total Protein (test code = Total 6.7 6.4-8.4 Protein) [facility]2018-06-13 15:44:00 Test Item Value Reference Range Interpretation Comments B/C Ratio (test code = B/C Ratio) 12 1 6-25 [facility]2018-06-13 15:44:00 Test Item Value Reference Range Interpretation Comments ALT (test code = ALT) 67 See_Comment [Auto mated message] The system which ge nerated this result transmit timur reference range : <=65. The reference range was not used to interpr et this result as jasmyne l/abnormal. [facility] [employer] [id number] 15:44:00 Test Item Value Reference Range Interpretation Comments Bili Total (test code = Bili Total) 1.2 0.2-1.3 [facility] [employer] [id number] 15:44:00 Test Item Value Reference Range Interpretation Comments AST (test code = AST) 77 See_Comment [Auto mated message] The system which ge nerated this result transmit timur reference range : <=37. The reference range was not used to interpr et this result as jasmyne l/abnormal. [facility] [employer] [id number] 15:44:00 Test Item Value Reference Range Interpretation Comments A/G Ratio (test code = A/G Ratio) 0.6 1 0.7-1.6 [facility] [employer] [id number] 15:44:00 Test Item Value Reference Range Interpretation Comments Alk Phos (test code = Alk Phos) 269 39-136 [facility] [employer] [id number] 15:44:00 Test Item Value Reference Range Interpretation Comments Globulin (test code = Globulin) 4.1 2.7-4.2 [facility] [employer] [id number] 15:44:00 Test Item Value Reference Range Interpretation Comments Osmolality (test code = Osmolality) 270 280-300 [facility] [id number] 08:30:00 Test Item Value Reference Range Interpretation Comments Hgb A1C (test code = Hgb A1C) 6.5 [facility] AccuRevCARDIAC [id number] 06:01:00 Test Item Value Reference Range Interpretation Comments proBNP (test code = 4235 See_Comment [Automa timur message] The proBNP) system which ge nerated this result tra nsmitted reference range : <=450. The reference r fernando was not used to int erpret this result as jasmyne l/abnormal. [facility] [employer] [id number] 06:01:00 Test Item Value Reference Range Interpretation Comments BNP (test code = BNP) 345 [facility]2018-06-13 06:01:00 Test Item Value Reference Range Interpretation Comments Lactic Acid Lvl (test code = Lactic 1.7 0.5-2.2 Acid Lvl) [facility]2018-06-13 06:01:00 Test Item Value Reference Range Interpretation Comments Procalcitonin Lvl (test 0.41 See_Comment [Au tomated message] code = Procalcitonin Lvl) Th e system which generated this result transmitted ref erence range: <=0.10. The reference range was not used to interpr et this result as normal/abnormal . [place] [id number] 11:57:00 Test Item Value Reference Range Interpretation Comments Bili Indirect (test 0.4 See_Comment [Automa timur message] The code = Bili Indirect) system which generated this result tra nsmitted reference range : <=1.0. The reference r fernando was not used to int erpret this result as normal/abnormal . [facility]2018-06-12 11:57:00 Test Item Value Reference Range Interpretation Comments Bili Total (test code = Bili Total) 0.7 0.2-1.3 [facility]2018-06-12 11:57:00 Test Item Value Reference Range Interpretation Comments Bili Direct (test code 0.3 See_Comment [Aut omated message] The = Bili Direct) system which generated this result tra nsmitted reference range : <=0.3. The reference r fernando was not used to int erpret this result as jasmyne l/abnormal. [facility]2018-06-12 11:57:00 Test Item Value Reference Range Interpretation Comments AST (test code = AST) 87 See_Comment [Auto mated message] The system which ge nerated this result transmit timur reference range : <=37. The reference range was not used to interpr et this result as jasmyne l/abnormal. [place] [id number] 11:57:00 Test Item Value Reference Range Interpretation Comments ALT (test code = ALT) 56 See_Comment [Auto mated message] The system which ge nerated this result transmit timur reference range : <=65. The reference range was not used to interpr et this result as jasmyne l/abnormal. [place] [id number] 11:57:00 Test Item Value Reference Range Interpretation Comments Alk Phos (test code = Alk Phos) 162 39-136 [facility] [id number] 11:57:00 Test Item Value Reference Range Interpretation Comments Albumin Lvl (test code = Albumin Lvl) 2.5 3.5-5.0 [facility] [id number] 11:57:00 Test Item Value Reference Range Interpretation Comments Total Protein (test code = Total 6.0 6.4-8.4 Protein) [facility] [id number] 11:57:00 Test Item Value Reference Range Interpretation Comments Globulin (test code = Globulin) 3.5 2.7-4.2 [facility] [id number] 11:57:00 Test Item Value Reference Range Interpretation Comments A/G Ratio (test code = A/G Ratio) 0.7 1 0.7-1.6 [facility] [id number] 11:57:00 Test Item Value Reference Range Interpretation Comments Procalcitonin Lvl (test 0.35 See_Comment [Au tomated message] code = Procalcitonin Lvl) Th e system which generated this result transmitted ref erence range: <=0.10. The reference range was not used to interpr et this result as normal/abnormal . [facility] [id number] 17:56:00 Test Item Value Reference Range Interpretation Comments MRSA by PCR (test Negative (02/19/18 12:56 code = MRSA by PCR) PM) [facility] AND [id number] 11:34:00 Test Item Value Reference Range Interpretation Comments UA Leuk Est (test Moderate *ABN*(02/19/18 code = UA Leuk Est) 6:34 AM) [facility] AND [id number] 11:34:00 Test Item Value Reference Range Interpretation Comments UA Urobilinogen (test code = UA 0.2 0.1-1.0 Urobilinogen) [facility] AND [id number] 11:34:00 Test Item Value Reference Range Interpretation Comments UA Nitrite (test code Positive *ABN*(02/19/18 = UA Nitrite) 6:34 AM) [facility] AND [id number] 11:34:00 Test Item Value Reference Range Interpretation Comments UA pH (test code = UA pH) 8.5 1 5.0-8.0 [facility] AND [id number] 11:34:00 Test Item Value Reference Range Interpretation Comments UA Protein (test code Negative (02/19/18 6:34 = UA Protein) AM) [facility] AND [id number] 11:34:00 Test Item Value Reference Range Interpretation Comments UA Glucose (test code Negative (02/19/18 6:34 = UA Glucose) AM) [facility] AND [id number] 11:34:00 Test Item Value Reference Range Interpretation Comments UA Blood (test code = Negative (02/19/18 6:34 UA Blood) AM) [facility] AND [id number] 11:34:00 Test Item Value Reference Range Interpretation Comments UA Ketones (test code Negative *NA*(02/19/18 = UA Ketones) 6:34 AM) [facility] AND [id number] 11:34:00 Test Item Value Reference Range Interpretation Comments UA Bili (test code = Negative *NA*(02/19/18 UA Bili) 6:34 AM) [facility] AND [id number] 11:34:00 Test Item Value Reference Range Interpretation Comments UA Color (test code = Yellow *NA*(02/19/18 UA Color) 6:34 AM) [facility] AND [id number] 11:34:00 Test Item Value Reference Range Interpretation Comments UA Spec Grav (test code = UA Spec 1.010 1 Grav) [facility] AND [id number] 11:34:00 Test Item Value Reference Range Interpretation Comments UA Turbidity (test code = Clear (02/19/18 6:34 UA Turbidity) AM) [facility] AND [id number] 11:34:00 Test Item Value Reference Range Interpretation Comments UA Amorph Aliya (test code = Occasional /HPF UA Amorph Aliya) [facility] AND [id number] 11:34:00 Test Item Value Reference Range Interpretation Comments UA Sq Epi (test code = UA Sq Occasional /LPF Epi) [facility] AND [id number] 11:34:00 Test Item Value Reference Range Interpretation Comments UA WBC (test code = 28 See_Comment [Automa timur message] The UA WBC) system which ge nerated this result transmit timur reference range : <=5. The reference range was not used to interpr et this result as jasmyne l/abnormal. [facility] AND [id number] 11:34:00 Test Item Value Reference Range Interpretation Comments UA RBC (test code = 8 See_Comment [Automa timur message] The UA RBC) system which ge nerated this result transmit timur reference range : <=2. The reference range was not used to interpr et this result as jasmyne l/abnormal. [facility] AND [id number] 11:34:00 Test Item Value Reference Range Interpretation Comments UA Mucus (test code = UA Mucus) Moderate /LPF [facility] [id number] 10:49:00 Test Item Value Reference Range Interpretation Comments Troponin-T (test code no gt See_Comment [Auto mated message] The = Troponin-T) system which g enerated this result transmit timur reference range : <=0.100. The reference r fernando was not used to interpr et this result as jasmyne l/abnormal. [id number] 10:49:00 Test Item Value Reference Range Interpretation Comments Plav Effect Plt (test code = Plav 281 Effect Plt) [facility] [id number] 10:49:00 Test Item Value Reference Range Interpretation Comments ASA Effect Plt (test code = ASA Effect 565 Plt) [facility] [id number] 10:06:00 Test Item Value Reference Range Interpretation Comments Troponin-I (test code 0.04 See_Comment [Auto mated message] The = Troponin-I) system which g enerated this result transmit timur reference range : <=0.40. The reference r fernando was not used to interpr et this result as jasmyne l/abnormal. [facility] [id number] 09:31:00 Test Item Value Reference Range Interpretation Comments FFP product (test code Product available = FFP product) (02/19/18 4:31 AM) [facility] [id number] 08:36:00 Test Item Value Reference Range Interpretation Comments Lactic Acid Lvl (test code = Lactic 1.7 0.5-2.2 Acid Lvl) [facility] [id number] 08:31:00 Test Item Value Reference Range Interpretation Comments Antibody Scrn (test Negative (02/19/18 3:31 code = Antibody Scrn) AM) [facility] [id number] 08:31:00 Test Item Value Reference Range Interpretation Comments ABO/Rh (test code = ABO/Rh) A POS [id number] 08:31:00 Test Item Value Reference Range Interpretation Comments PTT (test code = PTT) 51.4 s 22.9-35.8 [facility] H[id number] 08:31:00 Test Item Value Reference Range Interpretation Comments INR (test code = INR) 1.04 1 0.85-1.17 [facility] [id number] 08:31:00 Test Item Value Reference Range Interpretation Comments PT (test code = PT) 13.6 s 12.0-14.7 [facility] H[id number] 08:31:00 Test Item Value Reference Range Interpretation Comments K-time Rapid (test code = K-time 0.8 min 0.6-2.3 Rapid) [facility] [id number] 08:31:00 Test Item Value Reference Range Interpretation Comments R-time Rapid (test code = R-time 0.6 min 0.4-0.7 Rapid) [facility] H[id number] 08:31:00 Test Item Value Reference Range Interpretation Comments Split Point Rapid (test code = Split 0.5 min Point Rapid) [facility] HospitalUiihgwwWXVZZQNDVT0190-27-18 08:31:00 Test Item Value Reference Range Interpretation Comments ACT (TEG) Rapid (test code = ACT (TEG) 105 s 86-118 Rapid) [facility] [id number] 08:31:00 Test Item Value Reference Range Interpretation Comments G-value Rapid (test code = G-value 17.0 5.0-11.6 Rapid) [facility] [id number] 08:31:00 Test Item Value Reference Range Interpretation Comments Estimated % Lysis Rapid 1.2 See_Comment [Au tomated message] The (test code = Estimated syste m which generated % Lysis Rapid) this result t ransmitted reference range : <=7.5. The reference r fernando was not used to int erpret this result as normal/abnormal . [facility] [id number] 08:31:00 Test Item Value Reference Range Interpretation Comments Angle Rapid (test code = Angle 81 degrees 64-80 Rapid) [facility]XyrlmqsMKBBQASOPC5928-67-81 08:31:00 Test Item Value Reference Range Interpretation Comments Max Amplitude Rapid (test code = Max 77 mm 52-71 Amplitude Rapid) [facility]NIYRVBFZGVR9092-47-66 13:38:00 Test Item Value Reference Range Interpretation Comments Potassium Lvl (test code = Potassium 3.4 3.5-5.1 Lvl) [facility]2018-06-04 10:51:00 Test Item Value Reference Range Interpretation Comments Calcium Lvl (test code = Calcium Lvl) 8.7 8.5-10.5 [facility]2018-06-04 10:51:00 Test Item Value Reference Range Interpretation Comments AGAP (test code = AGAP) 14.9 10.0-20.0 [facility]2018-06-04 10:51:00 Test Item Value Reference Range Interpretation Comments Glucose Lvl (test code = Glucose Lvl) 110 70-99 [facility]2018-06-04 10:51:00 Test Item Value Reference Range Interpretation Comments CO2 (test code = CO2) 27 24-32 [facility]2018-06-04 10:51:00 Test Item Value Reference Range Interpretation Comments Creatinine Lvl (test code = Creatinine 0.62 0.50-1.40 Lvl) [facility]2018-06-04 10:51:00 Test Item Value Reference Range Interpretation Comments BUN (test code = BUN) 6 7-22 [facility]2018-06-04 10:51:00 Test Item Value Reference Range Interpretation Comments Sodium Lvl (test code = Sodium Lvl) 140 135-145 [facility]2018-06-04 10:51:00 Test Item Value Reference Range Interpretation Comments Potassium Lvl (test code = Potassium 2.9 3.5-5.1 Lvl) [facility]2018-06-04 10:51:00 Test Item Value Reference Range Interpretation Comments Chloride Lvl (test code = Chloride Lvl) 101 95-109 [facility]2018-06-04 10:51:00 Test Item Value Reference Range Interpretation Comments eGFR (test code = eGFR) 85 [facility]IcjsjphQLDHPWTLRGHA9723-26-25 05:33:00 Test Item Value Reference Range Interpretation Comments Sodium Lvl (test code = Sodium Lvl) 140 135-145 [facility] HospitalUkghvzyPDLIZKBTIJQN0744-86-78 05:33:00 Test Item Value Reference Range Interpretation Comments Potassium Lvl (test code = Potassium 4.1 3.5-5.1 Lvl) [facility] HospitalEvmkyiqYHXQXUDUUGRN5238-28-40 18:24:00 Test Item Value Reference Range Interpretation Comments Sodium Lvl (test code = Sodium Lvl) 137 135-145 [facility]2018-06-01 05:20:00 Test Item Value Reference Range Interpretation Comments eGFR (test code = eGFR) 86 [facility]2018-06-01 05:20:00 Test Item Value Reference Range Interpretation Comments Chloride Lvl (test code = Chloride Lvl) 103 95-109 [facility]2018-06-01 05:20:00 Test Item Value Reference Range Interpretation Comments CO2 (test code = CO2) 24 24-32 [facility]2018-06-01 05:20:00 Test Item Value Reference Range Interpretation Comments AGAP (test code = AGAP) 15.0 10.0-20.0 [facility]2018-06-01 05:20:00 Test Item Value Reference Range Interpretation Comments Calcium Lvl (test code = Calcium Lvl) 8.7 8.5-10.5 [facility]2018-06-01 05:20:00 Test Item Value Reference Range Interpretation Comments BUN (test code = BUN) 8 7-22 [facility]2018-06-01 05:20:00 Test Item Value Reference Range Interpretation Comments Creatinine Lvl (test code = Creatinine 0.62 0.50-1.40 Lvl) [facility]2018-06-01 05:20:00 Test Item Value Reference Range Interpretation Comments Glucose Lvl (test code = Glucose Lvl) 169 70-99 [facility]FxisraeRLXKKJXJFO0333-91-64 05:20:00 Test Item Value Reference Range Interpretation Comments Lymphocytes # (test code = Lymphocytes 1.6 1.0-5.5 #) [facility] HospitalZxrzhagRCCSPQFQND4742-49-71 05:20:00 Test Item Value Reference Range Interpretation Comments Segs-Bands # (test code = Segs-Bands #) 6.7 1.5-8.1 [facility] HospitalZruawqjLHCTSPXVJH5222-73-17 05:20:00 Test Item Value Reference Range Interpretation Comments Monocytes # (test code 0.8 See_Comment [Aut omated message] The = Monocytes #) system which generated this result tra nsmitted reference range : <=0.8. The reference r fernando was not used to int erpret this result as normal/abnormal . [facility] HospitalBhqyhtrZYMAIFFGXG3976-86-60 05:20:00 Test Item Value Reference Range Interpretation Comments Eosinophils # (test code 0.1 See_Comment [A utomated message] The = Eosinophils #) system whic h generated this result tra nsmitted reference range : <=0.5. The reference r fernando was not used to int erpret this result as normal/abnormal . [facility] HospitalGhaeivfOZAAFFJRXT0825-24-88 05:20:00 Test Item Value Reference Range Interpretation Comments Monocytes (test code = Monocytes) 8.3 2.0-12.0 [facility] HospitalGxsfuggJWOUZIBPGP2154-70-93 05:20:00 Test Item Value Reference Range Interpretation Comments Eosinophils (test code = 1.4 See_Comment [A utomated message] The Eosinophils) system which ge nerated this result tra nsmitted reference range : <=4.0. The reference r fernando was not used to int erpret this result as normal/abnormal . [facility] HospitalGozyjndFSXJLELICZ8297-26-48 05:20:00 Test Item Value Reference Range Interpretation Comments Basophils (test code = 0.4 See_Comment [Aut omated message] The Basophils) system which ge nerated this result tra nsmitted reference range : <=1.0. The reference r fernando was not used to int erpret this result as normal/abnormal . [facility] HospitalNhulmddFITVNQFRQX1302-18-31 05:20:00 Test Item Value Reference Range Interpretation Comments Lymphocytes (test code = Lymphocytes) 17.5 20.0-40.0 [facility] HospitalJqglykkPECYNDDUSU1009-51-04 05:20:00 Test Item Value Reference Range Interpretation Comments Segs (test code = Segs) 72.4 45.0-75.0 [facility] HospitalLxggpclIJZQBVLBYX6280-81-43 05:20:00 Test Item Value Reference Range Interpretation Comments MCV (test code = MCV) 83.0 80.0-98.0 [facility] HospitalOepktlrQUURVWCPBB6464-79-61 05:20:00 Test Item Value Reference Range Interpretation Comments MCH (test code = MCH) 28.3 pg 27.0-31.0 [facility] HospitalGndpbxwBUZEAOIXHR0507-01-98 05:20:00 Test Item Value Reference Range Interpretation Comments Hct (test code = Hct) 29.7 36.0-48.0 [facility] HospitalZmxwmmbXWMUVCWGEY9171-89-83 05:20:00 Test Item Value Reference Range Interpretation Comments Platelet (test code = Platelet) 257 133-450 [facility] HospitalLqndzegJSFEQQPPXZ8501-58-86 05:20:00 Test Item Value Reference Range Interpretation Comments MPV (test code = MPV) 8.3 7.4-10.4 [facility] HospitalVlhghzuRBFNMKXNMH4296-28-87 05:20:00 Test Item Value Reference Range Interpretation Comments RDW (test code = RDW) 15.1 11.5-14.5 [facility] HospitalEgdwowgJIRTUPISHD8063-02-18 05:20:00 Test Item Value Reference Range Interpretation Comments MCHC (test code = MCHC) 34.1 32.0-36.0 [facility] HospitalZxsgmvgLWZACYBSXV4006-71-33 05:20:00 Test Item Value Reference Range Interpretation Comments RBC (test code = RBC) 3.58 4.20-5.40 [facility] HospitalFerxbgkKRAOHCRFMV2454-69-43 05:20:00 Test Item Value Reference Range Interpretation Comments Hgb (test code = Hgb) 10.1 12.0-16.0 [facility] HospitalGylepmeAQAPPQEEKV5921-89-47 05:20:00 Test Item Value Reference Range Interpretation Comments WBC (test code = WBC) 9.3 3.7-10.4 [facility] HospitalNkbfdioDVDGYVZJUR4962-84-83 10:57:00 Test Item Value Reference Range Interpretation Comments PTT (test code = PTT) 48.4 s 22.9-35.8 [facility] HospitalKupeifaWHSXVFSYJM3545-80-87 10:57:00 Test Item Value Reference Range Interpretation Comments INR (test code = INR) 1.17 1 0.85-1.17 [facility] HospitalIfmnrjwTUFNNWCIHK3487-47-14 10:57:00 Test Item Value Reference Range Interpretation Comments PT (test code = PT) 15.0 s 12.0-14.7 [facility] HospitalNrnigsbRLIQKPHEVC8921-24-64 10:57:00 Test Item Value Reference Range Interpretation Comments Ly30 (test code = 2.3 See_Comment [Automate d message] The Ly30) system which ge nerated this result transmit timur reference range : <=7.5. The reference range was not used to interpr et this result as jasmyne l/abnormal. [facility] HospitalLduehbfKNZKCIOJBT7281-21-05 10:57:00 Test Item Value Reference Range Interpretation Comments TEG Data (test code = See Note (02/08/18 5:57 TEG Data) AM) [facility] HospitalBrrnniqNXJBDDYLBC1056-45-43 10:57:00 Test Item Value Reference Range Interpretation Comments Coag Index (test code 4.0 1 See_Comment [Auto mated message] The = Coag Index) system which g enerated this result transmit timur reference range : <=3.0. The reference range was not used to interpr et this result as jasmyne l/abnormal. [facility] HospitalLzllqxbPAZHXVAGRQ3909-14-04 10:57:00 Test Item Value Reference Range Interpretation Comments G-value (test code = G-value) 12.6 4.5-11.0 [facility] HospitalAvcnyasCEFRVKAHCZ4576-00-84 10:57:00 Test Item Value Reference Range Interpretation Comments Max Amp (test code = Max Amp) 71.6 mm 50.0-70.0 [facility] HospitalChpasntHMTQJVVTUQ3288-22-03 10:57:00 Test Item Value Reference Range Interpretation Comments Angle (test code = Angle) 74.1 degrees 53.0-72.0 [facility] HospitalEmcuqhbMHEWBEEDBU4709-83-86 10:57:00 Test Item Value Reference Range Interpretation Comments K-time (test code = K-time) 1.1 min 1.0-3.0 [facility] HospitalCsukertSBKHMGGGUL6397-60-16 10:57:00 Test Item Value Reference Range Interpretation Comments R-time (test code = R-time) 3.3 min 5.0-10.0 [facility] HospitalXxtapwzXSZRAMAYFM2702-06-44 10:57:00 Test Item Value Reference Range Interpretation Comments TEG Interp (test Thrombelastograph results code = TEG show shortened value of R Interp) and increased values of both Angle Alpha and MA. These findings are suggestive of platelet and enzymatic hypercoagulation which may be seen in early phase of DIC. Monitor for DIC with DIC panel may be indicated. [id number] [facility]2018-05-31 05:45:00 Test Item Value Reference Range Interpretation Comments Magnesium Lvl (test code = Magnesium 2.2 1.8-2.4 Lvl) [facility]2018-05-31 05:45:00 Test Item Value Reference Range Interpretation Comments Phosphorus (test code = Phosphorus) 2.1 2.5-4.5 [facility] HospitalOhcictrHLHCTSNMJWIG9661-56-61 05:45:00 Test Item Value Reference Range Interpretation Comments AGAP (test code = AGAP) 13.5 10.0-20.0 [facility] HospitalLsykehlYJVYRVGLRDIS0441-60-31 05:45:00 Test Item Value Reference Range Interpretation Comments BUN (test code = BUN) 13 7-22 [facility] HospitalCtcxnpvXMUGXOZLINFR2989-23-29 05:45:00 Test Item Value Reference Range Interpretation Comments Creatinine Lvl (test code = Creatinine 0.73 0.50-1.40 Lvl) [facility] HospitalXuhtqanLICFEPBOPMEM8228-30-96 05:45:00 Test Item Value Reference Range Interpretation Comments Calcium Lvl (test code = Calcium Lvl) 8.7 8.5-10.5 [facility] HospitalUqobjuwUHHXZHTACGLT1185-69-41 05:45:00 Test Item Value Reference Range Interpretation Comments Chloride Lvl (test code = Chloride Lvl) 105 95-109 [facility] HospitalZvjyxlxWVQUEEEAPLAR6317-65-72 05:45:00 Test Item Value Reference Range Interpretation Comments CO2 (test code = CO2) 24 24-32 [facility] HospitalJwpbqjfPDSQMOAQTVIE5223-09-89 05:45:00 Test Item Value Reference Range Interpretation Comments eGFR (test code = eGFR) 79 [facility] HospitalDlkcvkdHNCSXKCHTCHI1839-46-76 05:45:00 Test Item Value Reference Range Interpretation Comments Glucose Lvl (test code = Glucose Lvl) 139 70-99 [facility] HospitalNumlwaiKUIGEIBXLH6658-28-77 05:45:00 Test Item Value Reference Range Interpretation Comments WBC (test code = WBC) 8.7 3.7-10.4 [facility] HospitalOmlenoxEZHWKDLYNO7089-94-13 05:45:00 Test Item Value Reference Range Interpretation Comments RDW (test code = RDW) 14.8 11.5-14.5 [facility] HospitalXskggnjAYHWEAMGYW8101-38-65 05:45:00 Test Item Value Reference Range Interpretation Comments MCHC (test code = MCHC) 33.8 32.0-36.0 [facility] HospitalBcopwttXLUHVGXZWD5135-94-01 05:45:00 Test Item Value Reference Range Interpretation Comments MCH (test code = MCH) 28.3 pg 27.0-31.0 [facility] HospitalGrgvgahCOZKYDBVAD4407-30-57 05:45:00 Test Item Value Reference Range Interpretation Comments MPV (test code = MPV) 8.2 7.4-10.4 [facility] HospitalEbztvgqKWNQOQZBUW6845-18-52 05:45:00 Test Item Value Reference Range Interpretation Comments Platelet (test code = Platelet) 228 133-450 [facility] HospitalBxxqjzjGQDTBVSSVQ6630-84-54 05:45:00 Test Item Value Reference Range Interpretation Comments Hgb (test code = Hgb) 9.5 12.0-16.0 [facility] HospitalBdtxwjmIQHFDTJNUA6570-22-86 05:45:00 Test Item Value Reference Range Interpretation Comments Hct (test code = Hct) 28.0 36.0-48.0 [facility] HospitalRuphgyuAAXNIANUEB1731-14-94 05:45:00 Test Item Value Reference Range Interpretation Comments MCV (test code = MCV) 83.8 80.0-98.0 [facility] HospitalUdpxkhuGHBLPJKBMT2252-19-60 05:45:00 Test Item Value Reference Range Interpretation Comments RBC (test code = RBC) 3.34 4.20-5.40 [facility] HospitalAsigqkdYMWQQANMHQ0584-92-25 05:45:00 Test Item Value Reference Range Interpretation Comments Lymphocytes (test code = Lymphocytes) 16.6 20.0-40.0 [facility] HospitalAqsshmkMYRAGSXFDJ5015-95-03 05:45:00 Test Item Value Reference Range Interpretation Comments Segs (test code = Segs) 73.5 45.0-75.0 [facility] HospitalGxcdsboQXZWBCVJAP8707-33-23 05:45:00 Test Item Value Reference Range Interpretation Comments Monocytes # (test code 0.8 See_Comment [Aut omated message] The = Monocytes #) system which generated this result tra nsmitted reference range : <=0.8. The reference r fernando was not used to int erpret this result as normal/abnormal . [facility] HospitalUfiwdqzJHPKZIWFHV3185-23-96 05:45:00 Test Item Value Reference Range Interpretation Comments Segs-Bands # (test code = Segs-Bands #) 6.4 1.5-8.1 [facility] HospitalZhftowvZTVPMFXSQM8371-78-16 05:45:00 Test Item Value Reference Range Interpretation Comments Basophils (test code = 0.1 See_Comment [Aut omated message] The Basophils) system which ge nerated this result tra nsmitted reference range : <=1.0. The reference r fernando was not used to int erpret this result as normal/abnormal . [facility] HospitalHgytsnaCCKYKKPKCI3113-36-69 05:45:00 Test Item Value Reference Range Interpretation Comments Eosinophils (test code = 0.4 See_Comment [A utomated message] The Eosinophils) system which ge nerated this result tra nsmitted reference range : <=4.0. The reference r fernando was not used to int erpret this result as normal/abnormal . [facility] HospitalUttbgmdEEATIWACQS8862-85-57 05:45:00 Test Item Value Reference Range Interpretation Comments Monocytes (test code = Monocytes) 9.4 2.0-12.0 [facility] HospitalInecrdvQEACEGTYXL4607-36-56 05:45:00 Test Item Value Reference Range Interpretation Comments Lymphocytes # (test code = Lymphocytes 1.4 1.0-5.5 #) [facility]2018-05-31 05:45:00 Test Item Value Reference Range Interpretation Comments Ca Norm WB (test code = Ca Norm WB) 1.15 1.05-1.25 [facility]2018-05-31 05:45:00 Test Item Value Reference Range Interpretation Comments Ca Ion WB (test code = Ca Ion WB) 1.12 1.05-1.25 [facility]2018-05-30 05:06:00 Test Item Value Reference Range Interpretation Comments Magnesium Lvl (test code = Magnesium 2.4 1.8-2.4 Lvl) [facility]2018-05-30 05:06:00 Test Item Value Reference Range Interpretation Comments Phosphorus (test code = Phosphorus) 2.6 2.5-4.5 [facility] HospitalQrcayglYEHRUEVNRL4708-80-50 05:06:00 Test Item Value Reference Range Interpretation Comments PTT (test code = PTT) 52.3 s 22.9-35.8 [facility] HospitalImchuzhGJRMTSGUVA0572-07-87 05:06:00 Test Item Value Reference Range Interpretation Comments PT (test code = PT) 14.8 s 12.0-14.7 [facility] HospitalLpwgirkGQGQFERDEJ6179-70-80 05:06:00 Test Item Value Reference Range Interpretation Comments INR (test code = INR) 1.16 1 0.85-1.17 [facility] HospitalNszseuzAPEIZSQLGA9281-68-69 05:06:00 Test Item Value Reference Range Interpretation Comments Estimated % Lysis Rapid 2.0 See_Comment [Au tomated message] The (test code = Estimated syste m which generated % Lysis Rapid) this result t ransmitted reference range : <=7.5. The reference r fernando was not used to int erpret this result as normal/abnormal . [facility] HospitalKgavbaeIJPYCXXOFJ4871-98-13 05:06:00 Test Item Value Reference Range Interpretation Comments R-time Rapid (test code = R-time 0.8 min 0.4-0.7 Rapid) [facility] HospitalLklafgnHDSYSLYARK3010-56-15 05:06:00 Test Item Value Reference Range Interpretation Comments K-time Rapid (test code = K-time 0.8 min 0.6-2.3 Rapid) [facility] HospitalWjjtyryMYPHVBJKJW0611-98-66 05:06:00 Test Item Value Reference Range Interpretation Comments Split Point Rapid (test code = Split 0.7 min Point Rapid) [facility] HospitalMhhqamkSTZNKZIJAW8416-06-55 05:06:00 Test Item Value Reference Range Interpretation Comments Angle Rapid (test code = Angle 80 degrees 64-80 Rapid) [facility] HospitalPgsauedFGYJQUXSQT2218-06-34 05:06:00 Test Item Value Reference Range Interpretation Comments Max Amplitude Rapid (test code = Max 76 mm 52-71 Amplitude Rapid) [facility] HospitalTqfgfddQRGYFFUIJA2267-45-25 05:06:00 Test Item Value Reference Range Interpretation Comments ACT (TEG) Rapid (test code = ACT (TEG) 121 s 86-118 Rapid) [facility] HospitalRmbnsisEXDCOCIKVO5833-51-37 05:06:00 Test Item Value Reference Range Interpretation Comments G-value Rapid (test code = G-value 15.5 5.0-11.6 Rapid) [facility] HospitalElcvdqiSMAGQKAAWJ1629-16-65 05:06:00 Test Item Value Reference Range Interpretation Comments WBC (test code = WBC) 7.3 3.7-10.4 [facility] HospitalBzscvrwBWMUSBYQKS2071-71-91 05:06:00 Test Item Value Reference Range Interpretation Comments RBC (test code = RBC) 3.28 4.20-5.40 [facility] HospitalAqbgpckMCJVVYTAHF6176-62-51 05:06:00 Test Item Value Reference Range Interpretation Comments MPV (test code = MPV) 8.0 7.4-10.4 [facility] HospitalMssvthvJKZUEELYOJ0132-01-52 05:06:00 Test Item Value Reference Range Interpretation Comments MCHC (test code = MCHC) 34.8 32.0-36.0 [facility] HospitalKblftxlGTMUWDUICO4742-89-07 05:06:00 Test Item Value Reference Range Interpretation Comments RDW (test code = RDW) 14.6 11.5-14.5 [facility] HospitalInfipjjVNNFJRJCUH7102-90-90 05:06:00 Test Item Value Reference Range Interpretation Comments Platelet (test code = Platelet) 228 133-450 [facility] HospitalWriwafwMHMQWOAAND7638-90-52 05:06:00 Test Item Value Reference Range Interpretation Comments MCV (test code = MCV) 82.5 80.0-98.0 [facility] HospitalKrphbziTSHLVJTBZJ5961-85-00 05:06:00 Test Item Value Reference Range Interpretation Comments MCH (test code = MCH) 28.7 pg 27.0-31.0 [facility] HospitalFjainfxRNKAOMOKIQ0761-93-42 05:06:00 Test Item Value Reference Range Interpretation Comments Hgb (test code = Hgb) 9.4 12.0-16.0 [facility] HospitalKoafjqcTWVHLGCYOX6714-79-01 05:06:00 Test Item Value Reference Range Interpretation Comments Hct (test code = Hct) 27.0 36.0-48.0 [facility] HospitalVipdkkiUIYBIQZYMB2440-55-05 05:06:00 Test Item Value Reference Range Interpretation Comments Monocytes # (test code 0.9 See_Comment [Aut omated message] The = Monocytes #) system which generated this result tra nsmitted reference range : <=0.8. The reference r fernando was not used to int erpret this result as normal/abnormal . [facility] HospitalVnkjtaqPRJKSHOXKA3361-38-44 05:06:00 Test Item Value Reference Range Interpretation Comments Eosinophils # (test code 0.1 See_Comment [A utomated message] The = Eosinophils #) system whic h generated this result tra nsmitted reference range : <=0.5. The reference r fernando was not used to int erpret this result as normal/abnormal . [facility] HospitalGldlfuyPQWZHAQHIX0651-05-07 05:06:00 Test Item Value Reference Range Interpretation Comments Lymphocytes # (test code = Lymphocytes 1.6 1.0-5.5 #) [facility] HospitalUfijgpbJGYEBAFSRL0540-79-28 05:06:00 Test Item Value Reference Range Interpretation Comments Segs-Bands # (test code = Segs-Bands #) 4.8 1.5-8.1 [facility] HospitalNkejxgpGCNYUNULJM2887-39-19 05:06:00 Test Item Value Reference Range Interpretation Comments Basophils (test code = 0.1 See_Comment [Aut omated message] The Basophils) system which ge nerated this result tra nsmitted reference range : <=1.0. The reference r fernando was not used to int erpret this result as normal/abnormal . [facility] HospitalOpkgrdfJCXUYSXGQC2160-35-26 05:06:00 Test Item Value Reference Range Interpretation Comments Monocytes (test code = Monocytes) 12.4 2.0-12.0 [facility] HospitalDsyslgqCIKVCYCHMJ3644-27-95 05:06:00 Test Item Value Reference Range Interpretation Comments Eosinophils (test code = 0.8 See_Comment [A utomated message] The Eosinophils) system which ge nerated this result tra nsmitted reference range : <=4.0. The reference r fernando was not used to int erpret this result as normal/abnormal . [facility] HospitalTysbtylGPFSSIGKSX5998-88-72 05:06:00 Test Item Value Reference Range Interpretation Comments Lymphocytes (test code = Lymphocytes) 21.4 20.0-40.0 [facility] HospitalOakbmkvSVFNQIFOAU6118-76-11 05:06:00 Test Item Value Reference Range Interpretation Comments Segs (test code = Segs) 65.3 45.0-75.0 [facility]2018-05-30 05:06:00 Test Item Value Reference Range Interpretation Comments Ca Ion WB (test code = Ca Ion WB) 1.14 1.05-1.25 [facility]2018-05-30 05:06:00 Test Item Value Reference Range Interpretation Comments Ca Norm WB (test code = Ca Norm WB) 1.14 1.05-1.25 [facility] [employer] BEKBJ5106-78-77 21:23:00 Test Item Value Reference Range Interpretation Comments Lactic Acid Lvl (test code = Lactic 1.7 0.5-2.2 Acid Lvl) [facility] FFCGV2133-[facility]-92 15:19:00 Test Item Value Reference Range Interpretation Comments Procalcitonin Lvl (test no gt See_Comment [Au tomated message] code = Procalcitonin Lvl) Th e system which generated this result transmitted ref erence range: <=0.10. The reference range was not used to interpr et this result as normal/abnormal . [facility]D1GBACT[facility] - GJUBRBVV0527-89-57 15:03:00 Test Item Value Reference Range Interpretation Comments MRSA by PCR (test Negative (02/06/18 10:03 code = MRSA by PCR) AM) [facility] [id number] 15:03:00 Test Item Value Reference Range Interpretation Comments Lactic Acid Lvl (test code = Lactic 2.1 0.5-2.2 Acid Lvl) [facility]1GCARFree[place] CGRFPRG0006-59-23 10:01:00 Test Item Value Reference Range Interpretation Comments Troponin-I (test code no gt See_Comment [Auto mated message] The = Troponin-I) system which g enerated this result transmit timur reference range : <=0.40. The reference r fernando was not used to interpr et this result as jasmyne l/abnormal. [facility] JNRPJAW9362-83-23 10:01:00 Test Item Value Reference Range Interpretation Comments Troponin-T (test code no gt See_Comment [Auto mated message] The = Troponin-T) system which g enerated this result transmit timur reference range : <=0.100. The reference r fernando was not used to interpr et this result as jasmyne l/abnormal. [facility] TylerTapticaAC OIXUWJF1359-99-16 10:01:00 Test Item Value Reference Range Interpretation Comments Total CK (test code = Total CK) 188 12-191 [facility] [id number] 10:01:00 Test Item Value Reference Range Interpretation Comments CK MB Index (test 1.2 1 See_Comment [Automate d message] The code = CK MB Index) system w [employer] generated this result transmit timur reference range : <=2.5. The reference range was not used to interpr et this result as jasmyne l/abnormal. Elma HardenTapticaAC [id number] 10:01:00 Test Item Value Reference Range Interpretation Comments CK MB (test code = CK MB) 2.3 0.5-3.6 [facility] AccuRevPARATHYROID [id number] 06:28:00 Test Item Value Reference Range Interpretation Comments Ca Norm WB (test code = Ca Norm WB) 1.00 1.05-1.25 [facility] AccuRevPARATHYROID [id number] 06:28:00 Test Item Value Reference Range Interpretation Comments Ca Ion WB (test code = Ca Ion WB) 0.99 1.05-1.25 [facility] My Point...ExactlyAC [id number] 05:16:00 Test Item Value Reference Range Interpretation Comments CK MB Index (test 1.5 1 See_Comment [Automate d message] The code = CK MB Index) system w [employer] generated this result transmit timur reference range : <=2.5. The reference range was not used to interpr et this result as jasmyne l/abnormal. [employer] [id number] 05:16:00 Test Item Value Reference Range Interpretation Comments CK MB (test code = CK MB) 1.4 0.5-3.6 [facility] [place] Point...ExactlyAC [id number] 05:16:00 Test Item Value Reference Range Interpretation Comments Troponin-T (test code no gt See_Comment [Auto mated message] The = Troponin-T) system which g enerated this result transmit timur reference range : <=0.100. The reference r fernando was not used to interpr et this result as jasmyne l/abnormal. Elma [employer] [id number] 05:16:00 Test Item Value Reference Range Interpretation Comments Troponin-I (test code no gt See_Comment [Auto mated message] The = Troponin-I) system which g enerated this result transmit timur reference range : <=0.40. The reference r fernando was not used to interpr et this result as jasmyne l/abnormal. [facility] [id number] 05:16:00 Test Item Value Reference Range Interpretation Comments Total CK (test code = Total CK) 94 12-191 [facility] [id number] 05:16:00 Test Item Value Reference Range Interpretation Comments Albumin Lvl (test code = Albumin Lvl) 3.2 3.5-5.0 [facility] [id number] 05:16:00 Test Item Value Reference Range Interpretation Comments B/C Ratio (test code = B/C Ratio) 14 1 6-25 [facility] [id number] 05:16:00 Test Item Value Reference Range Interpretation Comments Total Protein (test code = Total 6.4 6.4-8.4 Protein) [facility] [id number] 05:16:00 Test Item Value Reference Range Interpretation Comments Globulin (test code = Globulin) 3.2 2.7-4.2 [facility] [id number] 05:16:00 Test Item Value Reference Range Interpretation Comments ALT (test code = ALT) 16 See_Comment [Auto mated message] The system which ge nerated this result transmit timur reference range : <=65. The reference range was not used to interpr et this result as jasmyne l/abnormal. [facility] [id number] 05:16:00 Test Item Value Reference Range Interpretation Comments A/G Ratio (test code = A/G Ratio) 1.0 1 0.7-1.6 [facility] [id number] 05:16:00 Test Item Value Reference Range Interpretation Comments Bili Total (test code = Bili Total) 0.3 0.2-1.3 [facility] [id number] 05:16:00 Test Item Value Reference Range Interpretation Comments Alk Phos (test code = Alk Phos) 67 39-136 [facility] [id number] 05:16:00 Test Item Value Reference Range Interpretation Comments AST (test code = AST) 14 See_Comment [Auto mated message] The system which ge nerated this result transmit timur reference range : <=37. The reference range was not used to interpr et this result as jasmyne l/abnormal. [facility] [id number] 05:16:00 Test Item Value Reference Range Interpretation Comments Magnesium Lvl (test code = Magnesium 1.6 1.8-2.4 Lvl) [facility]2018-05-29 05:16:00 Test Item Value Reference Range Interpretation Comments Phosphorus (test code = Phosphorus) 2.1 2.5-4.5 [id number] 05:16:00 Test Item Value Reference Range Interpretation Comments Estimated % Lysis Rapid 0.9 See_Comment [Au tomated message] The (test code = Estimated syste m which generated % Lysis Rapid) this result t ransmitted reference range : <=7.5. The reference r fernando was not used to int erpret this result as normal/abnormal . [facility] [id number] 05:16:00 Test Item Value Reference Range Interpretation Comments G-value Rapid (test code = G-value 11.7 5.0-11.6 Rapid) [facility] [id number] 05:16:00 Test Item Value Reference Range Interpretation Comments K-time Rapid (test code = K-time 0.8 min 0.6-2.3 Rapid) [facility] [id number] 05:16:00 Test Item Value Reference Range Interpretation Comments Angle Rapid (test code = Angle 76 degrees 64-80 Rapid) [facility] H[id number] 05:16:00 Test Item Value Reference Range Interpretation Comments Max Amplitude Rapid (test code = Max 70 mm 52-71 Amplitude Rapid) [facility] [id number] 05:16:00 Test Item Value Reference Range Interpretation Comments ACT (TEG) Rapid (test code = ACT (TEG) 121 s 86-118 Rapid) [facility] [id number] 05:16:00 Test Item Value Reference Range Interpretation Comments Split Point Rapid (test code = Split 0.4 min Point Rapid) [facility] H[id number] 05:16:00 Test Item Value Reference Range Interpretation Comments R-time Rapid (test code = R-time 0.8 min 0.4-0.7 Rapid) [facility] HospitalPemovphTSLBJJBOIU2493-30-30 05:16:00 Test Item Value Reference Range Interpretation Comments INR (test code = INR) 1.14 1 0.85-1.17 [facility] [id number] 05:16:00 Test Item Value Reference Range Interpretation Comments PTT (test code = PTT) 46.9 s 22.9-35.8 [id number] 05:16:00 Test Item Value Reference Range Interpretation Comments PT (test code = PT) 14.6 s 12.0-14.7 [id number] 01:34:00 Test Item Value Reference Range Interpretation Comments Plav Effect Plt (test code = Plav 220 Effect Plt) [id number] 01:34:00 Test Item Value Reference Range Interpretation Comments ASA Effect Plt (test code = ASA Effect 540 Plt) [facility]™ [id number] 01:29:00 Test Item Value Reference Range Interpretation Comments CK MB (test code = CK MB) 0.9 0.5-3.6 [facility] HospitalUskapeTRIST[facility] [id number] 01:29:00 Test Item Value Reference Range Interpretation Comments CK MB Index (test 1.2 1 See_Comment [Automate d message] The code = CK MB Index) system w [facility] generated this result transmit timur reference range : <=2.5. The reference range was not used to interpr et this result as jasmyne l/abnormal. [facility] [id number] 01:29:00 Test Item Value Reference Range Interpretation Comments Troponin-T (test code no gt See_Comment [Auto mated message] The = Troponin-T) system which g enerated this result transmit timur reference range : <=0.100. The reference r fernando was not used to interpr et this result as jasmyne l/abnormal. [facility] [id number] 01:29:00 Test Item Value Reference Range Interpretation Comments Troponin-I (test code no gt See_Comment [Auto mated message] The = Troponin-I) system which g enerated this result transmit timur reference range : <=0.40. The reference r fernando was not used to interpr et this result as jasmyne l/abnormal. [facility]2018-05-29 01:29:00 Test Item Value Reference Range Interpretation Comments Total CK (test code = Total CK) 77 12-191 [facility] [id number] 01:29:00 Test Item Value Reference Range Interpretation Comments Lactic Acid Lvl (test code = Lactic 1.6 0.5-2.2 Acid Lvl) [facility] [id number] 01:29:00 Test Item Value Reference Range Interpretation Comments Osmolality (test code = Osmolality) 273 280-300 [facility] AND [id number] 01:29:00 Test Item Value Reference Range Interpretation Comments UA Sq Epi (test code = UA Sq Epi) None Seen [facility] AND [id number] 01:29:00 Test Item Value Reference Range Interpretation Comments UA Urobilinogen (test code = UA <=1.0 mg/dL 0.1-1.0 Urobilinogen) [facility] AND [id number] 01:29:00 Test Item Value Reference Range Interpretation Comments UA Color (test code = Light Yellow UA Color) *NA*(02/05/18 8:29 PM) [facility] AND [id number] 01:29:00 Test Item Value Reference Range Interpretation Comments UA Spec Grav (test code = UA Spec 1.010 1 Grav) [facility] AND [id number] 01:29:00 Test Item Value Reference Range Interpretation Comments UA pH (test code = UA pH) 7.5 1 5.0-8.0 [facility] AND [id number] 01:29:00 Test Item Value Reference Range Interpretation Comments UA Turbidity (test code Slight *ABN*(02/05/18 = UA Turbidity) 8:29 PM) [facility] AND [id number] 01:29:00 Test Item Value Reference Range Interpretation Comments UA Glucose (test code = UA Glucose) 300 mg/dL [facility] AND [id number] 01:29:00 Test Item Value Reference Range Interpretation Comments UA Protein (test code = UA Protein) 100 mg/dL [facility] AND [id number] 01:29:00 Test Item Value Reference Range Interpretation Comments UA Ketones (test code = UA Ketones) 20 mg/dL [facility] AND [id number] 01:29:00 Test Item Value Reference Range Interpretation Comments UA Nitrite (test code Negative (02/05/18 8:29 = UA Nitrite) PM) [facility] AND [id number] 01:29:00 Test Item Value Reference Range Interpretation Comments UA WBC (test code = 1 See_Comment [Automa timur message] The UA WBC) system which ge nerated this result transmit timur reference range : <=5. The reference range was not used to interpr et this result as jasmyne l/abnormal. [facility] AND [id number] 01:29:00 Test Item Value Reference Range Interpretation Comments UA Leuk Est (test Negative (02/05/18 8:29 code = UA Leuk Est) PM) [facility] AND [id number] 01:29:00 Test Item Value Reference Range Interpretation Comments UA RBC (test code = 3 See_Comment [Automa timur message] The UA RBC) system which ge nerated this result transmit timur reference range : <=2. The reference range was not used to interpr et this result as jasmyne l/abnormal. [facility] AND [id number] 01:29:00 Test Item Value Reference Range Interpretation Comments UA Amorph Aliya (test code = UA Few /HPF Amorph Aliya) [facility] AND [id number] 01:29:00 Test Item Value Reference Range Interpretation Comments UA Mucus (test code = UA Mucus) Few /LPF [facility] AND [id number] 01:29:00 Test Item Value Reference Range Interpretation Comments UA Blood (test code = Negative (02/05/18 8:29 UA Blood) PM) [facility] AND [id number] 01:29:00 Test Item Value Reference Range Interpretation Comments UA Bili (test code = Negative *NA*(02/05/18 UA Bili) 8:29 PM) [facility] [id number] 01:29:00 Test Item Value Reference Range Interpretation Comments U Osmolality (test code = U Osmolality) 477 300-800 [facility] [id number] 01:29:00 Test Item Value Reference Range Interpretation Comments U Sodium (test code = U Sodium) [address] [facility] [place] [id number] 01:25:00 Test Item Value Reference Range Interpretation Comments FFP product (test code Product available = FFP product) (02/05/18 8:25 PM) [facility] [id number] 23:04:00 Test Item Value Reference Range Interpretation Comments ACT (TEG) Rapid (test code = ACT (TEG) 144 s 86-118 Rapid) [facility] H[id number] 23:04:00 Test Item Value Reference Range Interpretation Comments Split Point Rapid (test code = Split 0.7 min Point Rapid) [facility] [id number] 23:04:00 Test Item Value Reference Range Interpretation Comments K-time Rapid (test code = K-time 0.9 min 0.6-2.3 Rapid) [facility] H[id number] 23:04:00 Test Item Value Reference Range Interpretation Comments R-time Rapid (test code = R-time 1.0 min 0.4-0.7 Rapid) [facility] H[id number] 23:04:00 Test Item Value Reference Range Interpretation Comments Max Amplitude Rapid (test code = Max 75 mm 52-71 Amplitude Rapid) [facility] [id number] 23:04:00 Test Item Value Reference Range Interpretation Comments Angle Rapid (test code = Angle 76 degrees 64-80 Rapid) [facility] [id number] 23:04:00 Test Item Value Reference Range Interpretation Comments G-value Rapid (test code = G-value 14.8 5.0-11.6 Rapid) [facility] [id number] 23:04:00 Test Item Value Reference Range Interpretation Comments Estimated % Lysis Rapid 0.0 See_Comment [Au tomated message] The (test code = Estimated syste m which generated % Lysis Rapid) this result t ransmitted reference range : <=7.5. The reference r fernando was not used to int erpret this result as normal/abnormal . [facility] [place] [employer] [employer] [facility] [id number] 23:00:00 Test Item Value Reference Range Interpretation Comments ABO/Rh (test code = ABO/Rh) A POS [facility] [id number] 23:00:00 Test Item Value Reference Range Interpretation Comments Antibody Scrn (test Negative (02/05/18 6:00 code = Antibody Scrn) PM) [facility]
[2023-02-24 09:42] LABS: Absolute Lymphocytes (CBC) 2.1 K/uL (0.7-4.9); Hematocrit 36.6 % (36.0-45.0); Lymphocytes % 35.8 % (15.3-44.8); MCV 88.1 fL (80-100); MPV 7.9 fL (7.6-11.3); RBC Red Blood Cell Count 4.15 M/uL (3.86-4.86)
[2023-02-24 10:05] LABS: ALT/SGPT 35 U/L (13-56); Albumin 3.6 g/dL (3.4-5.0); Alkaline Phosphatase 83 U/L (45-117); BUN Blood Urea Nitrogen 14 mg/dL (7-18); Bicarbonate 25 mEq/L (21-32); Bilirubin Total 0.2 mg/dL (0.2-1.0); Glomerular Filtration Rate 57 ml/min (=/>90); Glucose Level 249 mg/dL (74-106); NT PRO-BNP 177 pg/mL (<450); Protein, Total 7.2 g/dL (6.4-8.2); Sodium Level 135 mEq/L (136-145); Troponin High Sensitivity 9.2 pg/mL (<58.9)
[2023-02-24 10:07] LABS: AST/SGOT 20 U/L (15-37); Bilirubin Direct < 0.1 mg/dL (0-0.2); Bilirubin Indirect, Calculated ND mg/dL (0.2-0.8); Potassium 3.7 mEq/L (3.5-5.1)
--- NOTE | 2023-02-24 10:30 | RAD REPORT ---
EXAM DESCRIPTION: RAD - Chest Single View - 02/24/2023 10:11 am CLINICAL HISTORY: syncope COMPARISON: Chest Single View dated 01/26/2023; Chest Single View dated 01/14/2023; Chest Single View d ated 07/25/2022; Chest Single View dated 07/06/2022; Neck Angio dated 01/03/2023 FINDINGS: Lines: Pacemaker. Lungs: No evidence of edema or pneumonia. Pleural: No significant pleural effusions or pneumothorax. Cardiac: The heart size is within normal limits. Mediastinum: Question thoracic aortic aneurysm. Bones: No acute fractures. Other: None IMPRESSION: No acute cardiopulmonary disease. 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
--- NOTE | 2023-02-24 11:42 | EDPHYS ---
Physician Documentation [facility] Name: Skylar Grossman Age: 87 yrs Sex: Female : 1935 Arrival Date: 02/24/2023 Time: 09:10 Bed 3 Private MD: ED Physician Donald Abreu HPI: 02/24 09:30 This 87 yrs old Female presents to ER via EMS with complaints of Syncope. jr11 09:30 The patient has experienced syncope, lost consciousness, felt very dizzy before syncope jr11 . Onset: The symptoms/episode began/occurred this morning. Associated injury: The patient did not suffer any apparent associated injury. Associated signs and symptoms: Pertinent positives: dizziness, lightheadedness, Pertinent negatives: chest pain, confusion, diarrhea. Patient is an 87-year-old that at the breakfast table lost consciousness, sister was.. 09:35 Pt was sitting, no trauma. jr11 Historical: - Allergies: 09:18 Codeine (Upset stomach); ll1 09:18 meperidine HCl; ll1 09:18 Morphine; ll1 - PMHx: 09:18 Cardiac pacemaker in situ; CVA; Dementia; Depression; Diabetes - IDDM; GERD; ll1 Hypercholesterolemia; Hypertensive disorder; - PSHx: 09:18 Appendectomy; Cholecystectomy; Total abdominal hysterectomy; ll1 - Immunization history:: Client reports receiving the 2nd dose of the Covid vaccine. - Social history:: Smoking status: Patient denies any tobacco usage or history of. ROS: 09:35 All other systems are negative. jr11 Exam: 09:35 Constitutional: This is a well developed, well nourished patient who is awake, alert, jr11 and in no acute distress. Head/Face: Normocephalic, atraumatic. Eyes: Extra-ocular motions intact. Lids and lashes normal. Conjunctiva and sclera are non-icteric and not injected. Cornea within normal limits. Periorbital areas with no swelling, redness, or edema. ENT: Nares patent. No nasal discharge, no septal abnormalities noted. Oropharynx with no redness, swelling, or masses, exudates, or evidence of obstruction, uvula midline. Mucous membranes moist. Neck: Trachea midline, no thyromegaly or masses palpated, and no cervical lymphadenopathy. Supple, full range of motion without nuchal rigidity, or vertebral point tenderness. No Meningismus. Chest/axilla: Normal chest wall appearance and motion. Nontender with no deformity. No lesions are appreciated. Cardiovascular: Regular rate and rhythm with a normal S1 and S2. No gallops, murmurs, or rubs. Normal PMI, no JVD. No pulse deficits. Abdomen/GI: Soft, non-tender, with normal bowel sounds. No distension or tympany. No guarding or rebound. No evidence of tenderness throughout. MS/ Extremity: Pulses equal, no cyanosis. Neurovascular intact. Full, normal range of motion. Neuro: Awake and alert, GCS 15, oriented to person, place, time, and situation. No gross motor or sensory deficits. Vital Signs: 09:19 BP 171 / 93; Pulse 85; Resp 17; Temp 97.8; Pulse Ox 96% on R/A; Weight 63.5 kg; Height ll1 5 ft. 4 in. ; Pain 6/10; 09:50 BP 184 / 96; Pulse 78; Resp 20 S; Pulse Ox 94% on R/A; kc6 11:39 BP 178 / 96; Pulse 74; Resp 15 S; Pulse Ox 94% on R/A; kc6 09:19 Body Mass Index 24.03 (63.50 kg, 162.56 cm) ll1 09:19 Pain Scale: Adult ll1 MDM: 09:20 Patient medically screened. jr11 09:25 ED course: EKG interpreted by me shows normal sinus rhythm, prolonged QRS at 156, QTc jr11 prolonged at 534, patient does have a right bundle branch morphology without any acute ST changes.. 09:35 Differential Diagnosis: cardiac arrhythmia, drug effect, seizure, vasovagal episode, jr11 prolonged QTc. Data reviewed: vital signs, nurses notes. 11:40 ED course: Attempted to call her PCP for follow-up however he is out of town. Spoke to jr11 sister, comfortable taking her home. States that this was not true syncope, she just felt very weak. Repeat EKG does not show QTc prolongation, it was the poor quality of the previous one, EKG interpreted by me shows normal sinus rhythm, normal axis, normal intervals except for FL of 206 with a right bundle branch morphology no acute ST changes cardiac monitor technician interpreted by me shows normal sinus rhythm at a rate of 65.. 02/24 09:22 Order name: Basic Metabolic Panel; Complete Time: 10:21 02/24 09:22 Order name: CBC with Diff; Complete Time: 10:21 02/24 09:22 Order name: LFT's; Complete Time: 10:02/24 09:22 Order name: NT PRO-BNP; Complete Time: 10:21 02/24 09:22 Order name: Troponin HS; Complete Time: 10:02/24 09:26 Order name: Magnesium; Complete Time: 10:02/24 09:22 Order name: XRAY Chest (1 view); Complete Time: 10:31 02/24 09:22 Order name: EKG; Complete Time: 09:02/24 11:08 Order name: EKG; Complete Time: 11:02/24 09:22 Order name: Cardiac monitoring; Complete Time: :32 02/24 09:22 Order name: EKG - Nurse/Tech; Complete Time: :32 02/24 09:22 Order name: IV Saline Lock; Complete Time: 09:51 02/24 09:22 Order name: Labs collected and sent; Complete Time: :32 02/24 09:22 Order name: O2 Per Protocol; Complete Time: :32 02/24 09:22 Order name: O2 Sat Monitoring; Complete Time: :32 Administered Medications: No medications were administered Disposition Summary: 02/24/23 11:41 Discharge Ordered Location: Home [facility] Condition: Stable jr Diagnosis - Muscle weakness (generalized) jr11 Followup: jr11 - With: Private Physician - When: 2 - 3 days - Reason: Re-evaluation by your physician Discharge Instructions: - Discharge Summary Sheet jr11 - Weakness jr11 Forms: - Medication Reconciliation Form jr11 - Thank You Letter jr11 - Antibiotic Education jr11 - Prescription Opioid Use jr11 Signatures: Dispatcher [employer] Doc Cohn RN RN ll1 Donald Abreu MD MD jr11
--- NOTE | 2023-02-24 11:42 | ER ---
Nurse's Notes [facility] Name: Skylar Grossman Age: 87 yrs Sex: Female : 1935 Arrival Date: 02/24/2023 Time: 09:10 Bed 3 Private MD: Diagnosis: Muscle weakness (generalized) Presentation: 02/24 09:19 Chief complaint: EMS states: Syncope event while at breakfast table, only lasted a few ll1 seconds per daughter. More lethargic than usual. Has had GOLDBERG all morning. Fingerstick 291, 1st degree AV block on monitor, other VS normal. No fall or trauma. Chief complaint: Patient states: Weak and GOLDBERG, started today. Coronavirus screen: Vaccine status: Patient reports receiving the 2nd dose of the covid vaccine. Client denies travel out of the [place] in the last 14 days. At this time, the client does not indicate any symptoms associated with coronavirus-19. Ebola Screen: Patient denies travel to an Ebola-affected area in the 21 days before illness onset. Initial Sepsis Screen: Does the patient meet any 2 criteria? No. Patient's initial sepsis screen is negative. Does the patient have a suspected source of infection? No. Patient's initial sepsis screen is negative. Risk Assessment: Do you want to hurt yourself or someone else? Patient reports no desire to harm self or others. Onset of symptoms was February 24, 2023. 09:19 Method Of Arrival: EMS ll1 09:19 Acuity: FARIDA 2 ll1 Triage Assessment: 09:21 General: Appears uncomfortable, ill, Behavior is calm, cooperative, appropriate for ll1 age. Pain: Complains of pain in head Quality of pain is described as aching. Neuro: Reports headache a syncopal episode weakness. Historical: - Allergies: 09:18 Codeine (Upset stomach); ll1 09:18 meperidine HCl; ll1 09:18 Morphine; ll1 - PMHx: 09:18 Cardiac pacemaker in situ; CVA; Dementia; Depression; Diabetes - IDDM; GERD; ll1 Hypercholesterolemia; Hypertensive disorder; - PSHx: 09:18 Appendectomy; Cholecystectomy; Total abdominal hysterectomy; ll1 - Immunization history:: Client reports receiving the 2nd dose of the Covid vaccine. - Social history:: Smoking status: Patient denies any tobacco usage or history of. Screenin:15 [facility] ED Fall Risk Assessment (Adult) History of falling in the last 3 months, kc6 including since admission Yes- single mechanical fall (1 pt) Confusion or Disorientation Yes (5 pts) Intoxicated or Sedated No (0 pts) Impaired Gait Yes (1 pt) Mobility Assist Device Used Yes (1 pt) Altered Elimination No (0 pt) Score/Fall Risk Level 3 or more points = High Risk Oriented to surroundings, Maintained a safe environment, Educated pt \T\ family on fall prevention, incl call for assistance when getting out of bed, Assessed \T\ reinforced patient's understanding of fall precautions, Hourly rounding (assess needs \T\ fall precautionary measures) done. Abuse screen: Denies threats or abuse. Denies injuries from another. Nutritional screening: No deficits noted. Tuberculosis screening: No symptoms or risk factors identified. Assessment: 09:19 Reassessment: please see triage assessment. kc6 09:55 Reassessment: No changes from previously documented assessment. Patient and/or family ll1 updated on plan of care and expected duration. Pain level reassessed. 10:55 Reassessment: Patient appears in no apparent distress at this time. No changes from kc6 previously documented assessment. Patient and/or family updated on plan of care and expected duration. Pain level reassessed. Patient is alert, oriented x 3, equal unlabored respirations, skin warm/dry/pink. Vital Signs: 09:19 BP 171 / 93; Pulse 85; Resp 17; Temp 97.8; Pulse Ox 96% on R/A; Weight 63.5 kg; Height ll1 5 ft. 4 in. ; Pain 6/10; 09:50 BP 184 / 96; Pulse 78; Resp 20 S; Pulse Ox 94% on R/A; kc6 11:39 BP 178 / 96; Pulse 74; Resp 15 S; Pulse Ox 94% on R/A; kc6 09:19 Body Mass Index 24.03 (63.50 kg, 162.56 cm) ll1 09:19 Pain Scale: Adult ll1 ED Course: 09:14 Patient arrived in ED. kc6 09:15 Donald Abreu MD is Attending Physician. [id number] 09:16 Luz Mendoza RN is Primary Nurse. kc6 09:18 Arm band placed on Patient placed in an exam room, on a stretcher. ll1 09:18 Patient has correct armband on for positive identification. Bed in low position. Call kc6 light in reach. Side rails up X2. 09:21 Triage completed. ll1 09:51 Missed attempt(s): 22 gauge in right upper arm. Bleeding controlled, band aid applied, ll1 catheter tip intact. 09:54 Inserted saline lock: 24 gauge in right upper arm, using aseptic technique. ll1 10:13 XRAY Chest (1 view) In Process Unspecified. EDMS 11:57 No provider procedures requiring assistance completed. IV discontinued, intact, kc6 bleeding controlled, No redness/swelling at site. Pressure dressing applied. Administered Medications: No medications were administered Medication: 11:58 VIS not applicable for this client. kc6 Outcome: 11:41 Discharge ordered by . 11:57 Discharged to home via wheelchair, with family. kc6 11:57 Condition: stable 11:57 Discharge instructions given to patient, Instructed on discharge instructions, follow up and referral plans. Demonstrated understanding of instructions, follow-up care. 11:58 Patient left the ED. kc6 Signatures: Dispatcher [employer] EDMS Doc French, RN RN ll1 Donald Abreu MD MD [id number] Luz Mendoza RN RN kc6
[2023-02-24 12:39] VITALS: TEMP 97.8
[2023-02-24 12:40] VITALS: O2SAT 94
[2023-02-24 12:42] VITALS: BP 178/96
--- NOTE | 2023-02-27 17:56 | EKG ---
Test Date: 2023-02-24 Test Time: 11:15:58 Book Critic: RAZIA MEASUREMENT RESULTS: Intervals: Rate: 67 NE: 206 QRSD: 134 QT: 454 QTc: 479 [place]: P: 80 NE: 206 QRS: 20 T: 0 INTERPRETIVE STATEMENTS: Normal sinus rhythm Right bundle branch block Abnormal ECG Compared to ECG 02/24/2023 09:22:28 Uncertain supraventricular rhythm no longer present Left posterior fascicular block no longer present Bifascicular block no longer present Electronically Signed On 02-27-23 17:51:31 CDT by Adrian Martin
--- NOTE | 2023-02-27 17:56 | EKG ---
Test Date: 2023-02-24 Test Time: 09:22:28 Lyft Driver: RAZIA MEASUREMENT RESULTS: Intervals: Rate: 84 ME: QRSD: 146 QT: 452 QTc: 534 [place]: P: ME: QRS: 110 T: 19 INTERPRETIVE STATEMENTS: Sinus rhythm Right bundle branch block Left posterior fascicular block Bifascicular block Abnormal ECG Compared to ECG 02/07/2023 14:31:05 Left posterior fascicular block now present Bifascicular block now present First degree AV block no longer present Electronically Signed On 02-27-23 17:52:06 CDT by Adrian Martin
== END 2023-02-24 11:58 | disposition home or self-care (01) ==
LOC: ER 09:10
DX: M62.81 Muscle weakness (generalized) (principal); R55 Syncope and collapse; I10 Essential (primary) hypertension; E11.9 Type 2 diabetes mellitus without complications; F03.90 Unspecified dementia, unspecified severity, without behavioral disturbance, psychotic disturbance, mood disturbance, and anxiety; Z95.0 Presence of cardiac pacemaker; Z88.5 Allergy status to narcotic agent; Z88.8 Allergy status to other drugs, medicaments and biological substances
CPT/HCPCS: 36415; 71045; 80048; 80076; 83735; 83880; 84484; 85025; 93005; 99284

== ENCOUNTER 2023-02-27 11:23 | Emergency (ER) | payer OTHER ==
[2023-02-27 11:49] LABS: Absolute Lymphocytes (CBC) 3.5 K/uL (0.7-4.9); Lymphocytes % 44.3 % (15.3-44.8); MCV 87.4 fL (80-100); MPV 8.4 fL (7.6-11.3); RBC Red Blood Cell Count 4.23 M/uL (3.86-4.86)
[2023-02-27] MEDS ORDERED: HYDROCORTISONE SUC 100 MG INJ ONE (11:50)
[2023-02-27] MEDS ORDERED: FAMOTIDINE 20 MG/2 ML VIAL IV ONE (11:50)
[2023-02-27] MEDS ORDERED: NA CHLORIDE 0.9% 1,000 ML ONE (11:50)
[2023-02-27 11:52] LABS: Protime INR 1.05
[2023-02-27] MEDS ORDERED: MULTIVITAMINS INJ 10 ML, THIAMINE HCL 100 MG, FOLIC ACID 1 MG in NA CHLORIDE 0.9% 1,000 ML IV ONE (12:00)
--- NOTE | 2023-02-27 12:04 | RAD REPORT ---
EXAM DESCRIPTION: CT - Head C Spine Cap Wo Con - 02/27/2023 11:47 am CLINICAL HISTORY: Head and neck injury with chest and abdominal pain status post fall TECHNIQUE: Computed axial tomography of head, neck, chest, abdomen and pelvis obtained. IV and oral contrast not requested. Coronal and sagittal reconstruction performed. All CT scans are performed using dose optimization technique as appropriate and may include automated exposure control or mA/KV adjustment according to patient size. COMPARISON: 2021 CT abdomen [address] and cervical spine FINDINGS: An intracranial bleed is not seen. The ventricles are normal in caliber. An extra-axial fluid collection is not noted. . Small lacunar i nfarct right basal ganglia. Postsurgical changes involve right skull Fluid within the sinuses/mastoids is not seen. A cervical fracture is not seen. No dislocation is noted. Spondylosis involves the cervical spine. Mi ld anterior subluxation C4 on C5 and C6 on C7. Mild posterior subluxation C5 on C6. These are all chr onic. The evaluation of mediastinum, jelly, vessels, solid organs and bowel are limited secondary to the lac k of contrast administration. A mediastinal hematoma is not noted. A pleural effusion is not seen. A lung contusion is not present. The liver,spleen, pancreas, adrenals,kidneys and bladder do not demonstrate an acute traumatic injury IMPRESSION: No acute intracranial abnormality is seen. A cervical fracture is not visualized. If the patient continues have symptoms to suggest intracrania l/spinal cord pathology MRI be recommended No acute traumatic abnormality involving the chest/abdomen/pelvis.
--- OUTSIDE RECORDS SUMMARY | 2023-02-27 12:07 | XMS REPORT | Continuity of Care Document ---
:1935 Author Organization [facility] t Address [address] [facility] [address] [place] [address] Care Team Providers Name Role Phone BARTOLO DONI Primary Care Physician Unavailable JUAQUIN MCINTYRE Attending Clinician Unavailable HARINI BETANCOURT Attending Clinician Unavailable HARINI BETANCOURT Attending Clinician Unavailable GILBERT WINSTON Attending Clinician Unavailable Inez Hylton MD Attending Clinician INEZ HYLTON Attending Clinician Unavailable Doctor Unassigned, [place] Attending Clinician Unavailable JARVIS MILLIGAN Attending Clinician Unavailable Liza Zarco Attending Clinician Raul Rosen MD Attending Clinician Jarvis Milligan MD Attending Clinician CASSIUS PINK Attending Clinician Unavailable DAYAMI LOVE Attending Clinician Unavailable Dayami Whitman Attending Clinician [phone] Pob, [facility] Main Attending Clinician Unavailable Colleen WHITT, Jamil Reeder Attending Clinician Unavailable ACACIA DEL TORO Attending Clinician Unavailable Srinath Cohen DO Attending Clinician Acacia Del Toro MD Attending Clinician Medhat GABRIEL, aC Arias Attending Clinician Therapy, [facility] Covid Attending Clinician Unavailable Unknown, Attending Attending Clinician Unavailable UNKNOWN, ATTENDING Attending Clinician Unavailable Marciano WHITT, Paco Alejandra Attending Clinician Unavailable Only, Kevin Db Test Attending Clinician Unavailable Pavan FIERROP, Jud Attending Clinician JUD CHUA Attending Clinician Unavailable JUAQUIN MCINTYRE Admitting Clinician Unavailable INEZ HYLTON Admitting Clinician Unavailable AJRVIS MILLIGAN Admitting Clinician Unavailable Chel GABRIEL, Jarvis Admitting Clinician STACEY OLIVAS Admitting Clinician Unavailable HARINI BETANCOURT Admitting Clinician Unavailable ACACIA DEL TORO Admitting Clinician Unavailable Alverto GABRIEL, Acacia Landaverde Admitting Clinician LUIS E DOMINGUEZ Admitting Clinician Unavailable Payers Payer Name Policy Type Policy Number Effective Date Expiration Date S dianelys MEDICARE PART A AND [id number] 1998 B 00:00:00 MEDICARE A B [id number] 1998 00:00:00 [facility] [id number] 2019 HEALTHCARE 00:00:00 MEDICARE PART A \\T\\ [id number] 1998 B 00:00:00 Problems Condition Condition Condition Status Onset Resolution Last Treating Co mments Source Name Details Category Date Date Treatment Clinician Date Hyponatrem Hyponatrem Disease Recurre Univers ia ia nce 2-14 ity of 00:00: [place] [address] Medical Branch 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 2-14 it y of 00:00: [place] [address] Medical Branch At high At high Disease Active Univers risk for risk for 2-14 ity of seizures seizures 00:00: [place] [address] Medical Branch SUBDURAL SUBDURAL Diagnosis Active 2022-10-10 Memoria RADHA RADHA 10-10 12:36:00 l Active 00:00: Aust[place] 10/10/2022 00 [facility] TS Diagnosis Active 2022-10-11 Mem oria Active 10-10 12:26:00 l 10/10/2022 00:00: Jax sosa [facility] 00 [facility] Sick sinus Sick sinus Disease Active [...] Added automatic ally from request for surgery [id number] Syncope Syncope Disease Active Overview: Univ ers and and 09-13 Formattin ity of collapse collapse 00:00: g of this [place] as 00 note Medical might be Branch different from the original. 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 U nivers [...] Added automatic ally from request for surgery [id number] Acute Acute Disease Active [facility] [...] 02-18 12:06:00 l 02/18/2018 00:00: Jax RAHMAN [place] 00 [facility] FALL/ FALL/ Diagnosis Active 2018-02-19 Mem oria INTRAVENTR INTRAVENTR 02-18 04:32:00 l ICULAR ICULAR 00:00: [place] HEMORRHAGE HEMORRHAGE 00 VS SDH VS SDH Active 02/18/2018 [facility] ACUTE SDH ACUTE Diagnosis Active 2018-02-16 Rika SDH Active 02-05 22:05:00 l 02/05/2018 00:00: Jax sosa [address] Pain in Pain in Disease Active Overview: Univ ers limb limb 12-04 Formattin ity of 00:00: g of this [place] 00 note Medical might be Branch different [...] of and and 00:00: g of this [place] radiculiti radiculiti 00 note Me dical s, s, might be Branch unspecifie unspecifie different d d from the original. Cervical radiculop athy Osteoarthr Osteoarthr Disease Active Overview : Univers itis itis 26 Formattin ity of 00:00: g of this [place] 00 note Medical might be Branch different from the original. ICD10 Diagnosis [employer] Supervisor Utility Esophageal Esophageal Disease Active 2005-09 U nivers reflux reflux 1-15 ity of 00:00: [place] 00 Medical Branch Diabetic Diabetic Disease Active 2005-09 Overview: Un teo polyneurop polyneurop 1-15 Formattin ity of athy athy 00:00: g of this [place] 00 note Medical might be Branch different from the original. ICD10 Diagnosis [employer] Supervisor Utility Chronic Chronic Disease Active 2005-09 Univers depressive depressive 1-15 it y of personalit [place]it [place] disorder y disorder 00 Me dical Branch HLD HLD Disease Active 2005-09 Overview: Univer s (hyperlipi (hyperlipi 1-15 Formattin ity of demia) demia) 00:00: g of this [place] 00 note Medical might be Branch different from the original. 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 ICD10 Diagnosis [employer] Super[employer] Utility Hypertensi Problem Resolve 2018-10-22 Memoria ve Hypertensi d 15:27:05 l disorder, ve [place] systemic disorder, arterial systemic (disorder) arterial (disorder) Resolved Problem 10/22/2018 [facility] NONTRAUMAT Diagnosis Active 2018-02-16 Memoria IC ACUTE NONTRAUMAT 22:05:00 l SUBDURAL IC ACUTE Jax n HEMORRHAGE SUBDURAL HEMORRHAGE Active [facility] NONTRAUMAT NONTRAUMA Diagnosis Active 2018-02-26 Memoria IC CHRONIC TIC 12:06:00 l SUBDURAL CHRONIC [place] HEMORRHAGE SUBDURAL HEMORRHAGE Active [facility] FALL FALL Diagnosis Active 2018-02-19 Mem oria Active 03:11:00 l [facility] TRAUM TRAUM Diagnosis Active 2022-10-11 [facility] oria SUBDR HEM SUBDR HEM 12:26:00 l WITH LOC WITH LOC Jax n STATUS STATUS UNKNOWN, UNKNOWN, Active [facility] Allergies, Adverse Reactions, Alerts Allergy Allergy [...] NE HCL INGREDI 3-10 ity of 00:00: [place] [address] Medical Branch Meperidi Propensi Active Unknown - [...] ALLERGIE S codeine codeine Active Memoria l [place] Demerol Demerol Active Memoria HCl HCl l [place] Family History Family Member Diagnosis Comments Start Date Stop Date Source Natural father High blood pressure C HI [facility] Social History Social Habit Start Date Stop Date Quantity Comments Source History SDOH Social Unive rsity of Connections [facility] Med ical Together Branch History SDOH Social Unive rsity of Connections [facility] Medical Branch History SDOH Social Unive rsity of Connections [place] Medical Membership Branch History SDOH Social Unive rsity of Connections [place] Medical Meetings Branch History SDOH [facility] [...] 5 University o f Financial 00:00:00 00:00:00 [place] [facility] Branch History SDOH Food 2022-10-25 2022-10-25 1 Univers ity of Worry 00:00:00 00:00:00 [place] Medical Branch History SDOH Food 2022-10-25 2022-10-25 1 Univers ity of Scarcity 00:00:00 00:00:00 [place] [facility] Tobacco use and 2022-08-03 2022-08-03 Smokeless Universit y of exposure 00:00:00 00:00:00 tobacco non-user [facility] dical Branch History SDKY 2020-03-27 2020-03-[address] [facility] Alcohol Frequency 00:00:00 00:00:00 [facility] Alcohol intake 2020-03-26 2020-03-[address] [facility] 00:00:00 00:00:00 non-drinker of Medical Ce nter alcohol (finding) Social History 2018-02-19 2018-02-19 [facility] 11:13:34 11:13:34 Sex Assigned At [address] [facility] 00:00:00 00:00:00 [facility] Smoking Status Start Date Stop Date Source Never smoked tobacco [facility] Medications Ordered Filled Start Stop Current Ordering Indication Dosage Frequency Signature Comments Components Source Medication Medication Date Date Medication? Clinician (SIG) Name Name amLODIPine 2022- Yes 5mg Take 5 mg [place] 5 mg tablet 2-21 by mouth ity of 17:33: at [place] [address] bedtime. Medical Branch aspirin 81 2022-0 Yes 81mg Take 81 mg U nivers mg EC 2-21 by mouth ity of tablet 17:33: in the [place] [address] morning. Medical Branch lisinopriL 2022-0 Yes 20mg Take 20 mg U nivers 20 mg 2-21 by mouth ity of tablet 17:33: in the [place] [address] morning Medical and 20 mg Branch in the evening. metFORMIN 2022-0 Yes 500mg Take 500 Uni vers 500 mg 2-21 mg by ity of tablet 17:33: mouth in [place] [address] the Medical morning Branch and 500 mg in the evening. Take with meals. pantoprazol 2022-0 Yes 40mg Take 40 mg Univers e 2-21 by mouth ity of (PROTONIX) 17:33: in the [place] 20 mg EC 53 morning. Medical tablet Branch tamsulosin 2022-0 Yes Take by [facility] ers (FLOMAX) 2-21 mouth ity of 0.4 mg 24 17:33: daily. [place] hr capsule 53 Medical Branch FLUoxetine 2022-0 Yes 20mg Take 20 mg U nivers 20 mg 2-21 by mouth ity of capsule 17:33: in the [place] [address] morning. Medical Branch gabapentin 2022-0 Yes 300mg Take 300 Un teo 300 mg 2-21 mg by ity of capsule 17:33: mouth 2 [place] 53 (two) Medical times Branch daily as needed. memantine 2022-0 Yes 10mg Take 10 mg Un te[place] 10 mg 2-21 by mouth ity of tablet 17:33: in the [place] [address] morning Medical and 10 mg Branch in the evening. simvastatin 2022-0 Yes 20mg Take 20 mg Univers 20 mg 2-21 by mouth ity of tablet 17:33: at [place] [address] bedtime. Medical Branch amLODIPine 2022-0 Yes 5mg Take 5 mg Un teo 5 mg tablet 2-21 by mouth ity of 17:33: at [place] [address] bedtime. Medical Branch aspirin 81 2022-0 Yes 81mg Take 81 mg U nivers mg EC 2-21 by mouth ity of tablet 17:33: in the [place] [address] morning. Medical Branch lisinopriL 2022-0 Yes 20mg Take 20 mg U nivers 20 mg 2-21 by mouth ity of tablet 17:33: in the [place] [address] morning Medical and 20 mg Branch in the evening. metFORMIN 2022-0 Yes 500mg Take 500 Uni vers 500 mg 2-21 mg by ity of tablet 17:33: mouth in [place] 53 the Medical morning Branch and 500 mg in the evening. Take with meals. pantoprazol 2022-0 Yes 40mg Take 40 mg Univers e 2-21 by mouth ity of (PROTONIX) 17:33: in the [place] 20 mg EC 53 morning. Medical tablet Branch tamsulosin 2022-0 Yes Take by [facility] ers (FLOMAX) 2-21 mouth ity of 0.4 mg 24 17:33: daily. [place] hr capsule 53 Medical Branch FLUoxetine 2022-0 Yes 20mg Take 20 mg U nivers 20 mg 2-21 by mouth ity of capsule 17:33: in the [place] [address] morning. Medical Branch gabapentin 3-0 Yes 300mg Take 300 Un teo 300 mg 2-21 mg by ity of capsule 17:33: mouth 2 [place] [address] (two) Medical times Branch daily as needed. memantine 2023-0 Yes 10mg Take 10 mg Un teo 10 mg 2-21 by mouth ity of tablet 17:33: in the [place] [address] morning Medical and 10 mg Branch in the evening. simvastatin 2023-0 Yes 20mg Take 20 mg Univers 20 mg 2-21 by mouth ity of tablet 17:33: at [place] [address] bedtime. Medical Branch amLODIPine 2023-0 Yes 5mg Take 5 mg Un teo 5 mg tablet 2-21 by mouth ity of 17:33: at [place] [address] bedtime. Medical Branch aspirin 81 2023-0 Yes 81mg Take 81 mg U nivers mg EC 2-21 by mouth ity of tablet 17:33: in the [place] [address] morning. Medical Branch lisinopriL 2022-0 Yes 20mg Take 20 mg U nivers 20 mg 2-21 by mouth ity of tablet 17:33: in the [place] [address] morning Medical and 20 mg Branch in the evening. metFORMIN 3-0 Yes 500mg Take 500 Uni vers 500 mg 2-21 mg by ity of tablet 17:33: mouth in [place] [address] the Medical morning Branch and 500 mg in the evening. Take with meals. pantoprazol 3-0 Yes 40mg Take 40 mg Univers e 2-21 by mouth ity of (PROTONIX) 17:33: in the [place] 20 mg EC morning. Medical tablet Branch tamsulosin 2022-0 Yes Take by [facility] ers (FLOMAX) 2-21 mouth ity of 0.4 mg 24 17:33: daily. [place] hr [facility] 53 Medical Branch FLUoxetine 3-0 Yes 20mg Take 20 mg U nivers 20 mg 2-21 by mouth ity of capsule 17:33: in the [place] [address] morning. Medical Branch gabapentin 3-0 Yes 300mg Take 300 Un teo 300 mg 2-21 mg by ity of capsule 17:33: mouth 2 [place] [address] (two) Medical times Branch daily as needed. memantine 2023-0 Yes 10mg Take 10 mg Un teo 10 mg 2-21 by mouth ity of tablet 17:33: in the [place] [address] morning Medical and 10 mg Branch in the evening. simvastatin 2022-0 Yes 20mg Take 20 mg Univers 20 mg 2-21 by mouth ity of tablet 17:33: at [place] [address] bedtime. Medical Branch amLODIPine 2022-0 Yes 5mg Take 5 mg Un teo 5 mg tablet 2-21 by mouth ity of 17:33: at [place] [address] bedtime. Medical Branch aspirin 81 2022-0 Yes 81mg Take 81 mg U nivers mg EC 2-21 by mouth ity of tablet 17:33: in the [place] [address] morning. Medical Branch lisinopriL 2022-0 Yes 20mg Take 20 mg U nivers 20 mg 2-21 by mouth ity of tablet 17:33: in the [place] [address] morning Medical and 20 mg Branch in the evening. metFORMIN 2022-0 Yes 500mg Take 500 Uni vers 500 mg 2-21 mg by ity of tablet 17:33: mouth in [place] [address] the Medical morning Branch and 500 mg in the evening. Take with meals. pantoprazol 2022-0 Yes 40mg Take 40 mg Univers e 2-21 by mouth ity of (PROTONIX) 17:33: in the [place] 20 mg EC morning. Medical tablet Branch tamsulosin 2022-0 Yes Take by [facility] ers (FLOMAX) 2-21 mouth ity of 0.4 mg 24 17:33: daily. [place] hr capsule 53 Medical Branch FLUoxetine 2022-0 Yes 20mg Take 20 mg U nivers 20 mg 2-21 by mouth ity of capsule 17:33: in the [place] [address] morning. Medical Branch gabapentin 2022-0 Yes 300mg Take 300 Un teo 300 mg 2-21 mg by ity of capsule 17:33: mouth 2 [place] [address] (two) Medical times Branch daily as needed. memantine 2022-0 Yes 10mg Take 10 mg Un teo 10 mg 2-21 by mouth ity of tablet 17:33: in the [place] [address] morning Medical and 10 mg Branch in the evening. simvastatin 2022-0 Yes 20mg Take 20 mg Univers 20 mg 2-21 by mouth ity of tablet 17:33: at [place] [address] bedtime. Medical Branch levETIRAcet 2022-0 2023- No 250mg Take 250 Univers am (KEPPRA) 2-21 02-21 mg by ity of 250 mg 13:41: 00:00 mouth in [place] tablet 41 :00 the [facility] and 250 mg in the evening. levETIRAcet 2022- No [id number] 500mg Take 1 Univers am 500 mg 11-01 tablet by ity of tablet 00:00: 04:59 mouth in [place] 00 :00 [facility] and 1 tablet in the evening. Do all this for 90 days. levETIRAcet 2022- No [id number] 500mg Take 1 Univers am 500 mg 11-01 tablet by ity of tablet 00:00: 04:59 mouth in [place] 00 :00 the [facility] and 1 tablet in the evening. Do all this for 90 days. levETIRAcet 2022- No [id number] 500mg Take 1 Univers am 500 mg 11-01 tablet by ity of tablet 00:00: 04:59 mouth in [place] 00 :00 the [facility] and 1 tablet in the evening. Do all this for 90 days. levETIRAcet 2022- No [id number] 500mg Take 1 Univers am 500 mg 11-01 tablet by ity of tablet 00:00: 04:59 mouth in [place] 00 :00 [facility] and 1 tablet in the evening. Do all this for 90 days. levETIRAcet Yes 500mg 500 mg, Un teo am (KEPPRA) 2-20 Oral, BID, it y of tablet 500 02:00: First dose [place] mg 00 on [facility] 10/30/22 at Branch 1999, Until Discontinu ed, Routine morpHINE ( Yes 2mg 2 mg, Slow Univers mg/mL) 2-17 IV Push, ity of injection 2 02:52: Q4HPRN, [place] mg 02 Starting Medical on [facility] Branch 10/27/22 at 2051, Until Discontinu ed, Routine, Pain (scale 7-10) heparin Yes 5000U 5,000 Univers (porcine) 2-16 Units, ity of injection 20:00: Subcutaneo [place] 5,000 Units 00 us, Q8H, Medi joyce First dose Branch on [facility] 10/27/22 at 1400, Until Discontinu ed, Routine metoprolol 2023-0 Yes 25mg 25 mg, Unive rs tartrate 2-16 Oral, BID, ity o f (LOPRESSOR) 02:00: First dose [place] tablet 25 00 on 10/26/22 at Branch 2000, Until Discontinu ed, Routine metoprolol 2022-2022- No [id number] 25mg Take 1 Univers tartrate 25 2-16 -19 tablet by it y of mg tablet 00:00: 04:59 mouth in [place] 00 :00 the [facility] and 1 tablet in the evening. Do all this for 30 days. metoprolol 2022-0 2022- No [id number] 25mg Take 1 Univers tartrate 25 2-16 -19 tablet by it y of mg tablet 00:00: 04:59 mouth in [place] 00 :00 the [facility] and 1 tablet in the evening. Do all this for 30 days. metoprolol 2022-0 2022- No [id number] 25mg Take 1 Univers tartrate 25 2-16 -19 tablet by it y of mg tablet 00:00: 04:59 mouth in [place] 00 :00 the [facility] and 1 tablet in the evening. Do all this for 30 days. KCL 2022-2022- No 40meq 40 mEq, Univers (KLOR-CON 10-26-15 Oral, ity of M20) tablet 05:45: 05:18 ONCE, 1 [place] 40 mEq 00 :00 dose, On [facility] 10/25/22 at 2345, Routine magnesium 2022- No [...] dose [place] mg 00 on Mon [facility] 10/25/22 at Branch 2100, Until Discontinu ed, Routine amLODIPine 2022-0 Yes 5mg 5 mg, Univer s (NORVASC) 2-15 Oral, QHS, ity of tablet 5 mg 03:00: First dose [place] 00 on [facility] 10/25/22 at Branch 2100, Until Discontinu ed, Routine phytonadion 2022-0 2022- No 10mg IV Unive rs e (VITAMIN 2-14 10-25 Piggyback, it y of K) 10 mg in 16:45: 18:08 ONCE, 1 [place] NaCl 0.9% 00 :00 dose, On Medica l (NS) [facility] piggyback 10/25/22 at 1045, 50 mL NaCl [...] [place] 10 mL 01 Starting Medical on [facility] 10/25/22 at 0949, Until Discontinu ed, Routine, line maintenanc e lidocaine 2022-0 Yes 5mL 5 mL, Univers 1% (PF) 14 Subcutaneo ity of (XYLOCAINE) 15:49: us, PRN, [place] injection 5 01 Starting Medi joyce mL on [facility] 10/25/22 at 0949, Until Discontinu ed, Routine, Local anesthesia tamsulosin 2022-0 Yes .4mg 0.4 mg, Univ ers (FLOMAX) 2-14 Oral, ity of capsule 0.4 15:00: DAILY, [place] mg 00 First dose Medical on [facility] 10/25/22 at 0900, Until Discontinu ed, Routine pantoprazol 2022-0 Yes 40mg 40 mg, Univ ers e 2-14 Oral, ity of (PROTONIX) 15:00: DAILY, [place] EC tablet 00 First dose Medi joyce 40 mg on [facility] 10/25/22 at 0900, Until Discontinu ed, Routine FLUoxetine 2022-0 Yes 20mg 20 mg, Unive rs (PROZAC) 2-14 Oral, ity of capsule 20 15:00: DAILY, [place] mg 00 First dose Medical on [facility] 10/25/22 at 0900, Until Discontinu ed, Routine metFORMIN Yes 500mg 500 mg, Univ ers (GLUCOPHAGE 2-14 Oral, BID ity of ) tablet 14:00: MEALS, [place] 500 mg 00 First dose Medical on [facility] 10/25/22 at 0800, Until Discontinu ed, Routine memantine Yes 10mg 10 mg, Univer s (NAMENDA) 2-14 Oral, BID, ity of tablet 10 14:00: First dose [place] mg 00 on [facility] 10/25/22 at Branch 0800, Until Discontinu ed, Routine
nutrition faculty member approving Restricted medication : JARVIS MILLIGAN lisinopriL Yes 20mg 20 mg, Unive rs (PRINIVIL,Z 2-14 Oral, BID, it y of ESTRIL) 14:00: First dose [place] tablet 20 00 on [facility] mg 10/25/22 at Branch 0800, Until Discontinu ed, Routine gabapentin Yes 200mg 200 mg, Uni vers (NEURONTIN) 2-14 Oral, TID, it y of capsule 200 14:00: First dose [place] mg 00 on [facility] 10/25/22 at Branch 0800, Until Discontinu ed, Routine levETIRAcet 2022- No 500mg 500 mg, IV Univers am (KEPPRA) 10-25 0220 Piggyback, i ty of in NACL 14:00: 01:39 Q12H, [place] (ISO-OS) 00 :32 First dose Medic al 500 mg/100 on [facility] mL RTU 10/25/22 at 0800, Until Discontinu ed, Administer over 15 Minutes, 100 mL carvediloL 2022- No 6.25mg 6.25 mg, Univers (COREG) 10-25-15 Oral, BID ity of tablet 6.25 14:00: 21:58 MEALS, [place] mg 00 :13 First dose Medical on [facility] 10/25/22 at 0800, Until Discontinu ed, Routine Sliding Yes Subcutaneo Univ ers Scale 2-14 us, AC+HS, ity of Insulin-Reg 13:30: First dose [place] ular + Fsbg 00 on Mon Medica l Testing 10/25/22 at Branch 0730, Until Discontinu ed, Routine iopamidol 0 2022- No [id number] 80mL 80 mL, U nivers (ISOVUE 14 02-14 Intravenou ity o f 370-500 mL) [...] ity of bolus 07:07: PRN - SEE [place] infusion 04 INSTRUCTIO Medic al 250 mL [...] 00 Starting Medical injection 1 on Mon [facility] 10/25/22 at 0107, Until Discontinu ed, [...] IV Push, ity of (PF)) 06:56: Q6HPRN, [place] injection 4 23 Starting Medi joyce mg on [facility] 10/25/22 at 0056, Until Discontinu ed, Routine, Nausea and Vomiting (N/V) acetaminoph 2022-0 Yes 650mg 650 mg, Un teo en 10-25 Oral, ity of (TYLENOL) 06:55: Q6HPRN, [place] tablet 650 49 Starting Medic al mg on [facility] 10/25/22 at 0055, Until Discontinu ed, Routine, Pain (scale 1-3) cefTRIAXone 2022-0 2023- No 1000mg 1,000 mg, Univers (ROCEPHIN) 10-25 IV ity of 1,000 mg in 01:00: 01:42 [place]ter, [place] NaCl 0.9% 00 :00 ONCE, 1 Medical (NS) 50 mL dose, On [facility] MINI-BAG [facility] 10/24/22 at 1900, Administer over 30 Minutes, 50 mL
Reas on for Anti-Infec tive: Documented Infection< br>Documen timur Infection Site: Urine<br&g t;Duration of Therapy: Other (see Comments) LORazepam 2022-0 2022- No 1mg 1 mg, Slow U nivers (ATIVAN) 10-25 IV Push, ity of injection 1 01:00: 01:09 ONCE, 1 [place] mg 00 :00 dose, On [facility] 10/24/22 at 1900, STAT amLODIPine 2022-0 Yes 5mg Take 5 mg Un [place] 5 mg tablet 10-08 by mouth ity of 13:19: at [place] [address] bedtime. Medical Branch aspirin 81 2022-0 Yes 81mg Take 81 mg U nivers mg EC 10-08 by mouth ity of tablet 13:19: in the [place] [address] morning. Medical Branch lisinopriL 2022-0 Yes 20mg Take 20 mg U nivers 20 mg 10-08 by mouth ity of tablet 13:19: in the [place] [address] morning Medical and 20 mg Branch in the evening. metFORMIN 2022-0 Yes 500mg Take 500 Uni vers 500 mg 1-28 mg by ity of tablet 13:19: mouth in [place] [address] the Medical morning Branch and 500 mg in the evening. Take with meals. pantoprazol 2022-0 Yes 40mg Take 40 mg Univers e 10-08 by mouth ity of (PROTONIX) 13:19: in the [place] 20 mg EC morning. Medical tablet Branch tamsulosin 2022-0 Yes Take by [facility] ers (FLOMAX) 10-08 mouth ity of 0.4 mg 24 13:19: daily. [place] hr capsule 28 Medical Branch FLUoxetine 2022-0 Yes 20mg Take 20 mg U nivers 20 mg 10-08 by mouth ity of capsule 13:19: in the [place] [address] morning. Medical Branch gabapentin 2022-0 Yes 300mg Take 300 Un teo 300 mg - mg by ity of capsule 13:19: mouth 2 [place] [address] (two) Medical times Branch daily as needed. levETIRAcet 2022-0 Yes 250mg Take 250 U nivers am (KEPPRA) 10-08 mg by ity of 250 mg 13:19: mouth in [place] tablet 28 the Medical morning Branch and 250 mg in the evening. memantine 2022-0 Yes 10mg Take 10 mg Un teo 10 mg 10-08 by mouth ity of tablet 13:19: in the [place] [address] morning Medical and 10 mg Branch in the evening. simvastatin 2022-0 Yes 20mg Take 20 mg Univers 20 mg 10-08 by mouth ity of tablet 13:19: at [place] [address] bedtime. Medical Branch amLODIPine 2022-0 Yes 5mg Take 5 mg Un teo 5 mg tablet 10-08 by mouth ity of 13:19: at [place] [address] bedtime. Medical Branch aspirin 81 2022-0 Yes 81mg Take 81 mg U nivers mg EC 10-08 by mouth ity of tablet 13:19: in the [place] [address] morning. Medical Branch lisinopriL 2022-0 Yes 20mg Take 20 mg U nivers 20 mg 10-08 by mouth ity of tablet 13:19: in the [place] [address] morning Medical and 20 mg Branch in the evening. metFORMIN 3-0 Yes 500mg Take 500 Uni vers 500 mg - mg by ity of tablet 13:19: mouth in [place] [address] the Medical morning Branch and 500 mg in the evening. Take with meals. pantoprazol 3-0 Yes 40mg Take 40 mg Univers e 10-08 by mouth ity of (PROTONIX) 13:19: in the [place] 20 mg EC 28 morning. Medical tablet Branch tamsulosin 2022-0 Yes Take by [facility] ers (FLOMAX) 10-08 mouth ity of 0.4 mg 24 13:19: daily. [place] hr capsule Medical Branch FLUoxetine 2022-0 Yes 20mg Take 20 mg U nivers 20 mg 10-08 by mouth ity of capsule 13:19: in the [place] [address] morning. Medical Branch gabapentin 2022-0 Yes 300mg Take 300 Un teo 300 mg - mg by ity of capsule 13:19: mouth 2 (two) Medical times Branch daily as needed. levETIRAcet 2022-0 Yes 250mg Take 250 U nivers am (KEPPRA) 10-08 mg by ity of 250 mg 13:19: mouth in [place] tablet 28 the Medical morning Branch and 250 mg in the evening. memantine 2022-0 Yes 10mg Take 10 mg Un teo 10 mg 10-08 by mouth ity of tablet 13:19: in the [place] [address] morning Medical and 10 mg Branch in the evening. simvastatin 2022-0 Yes 20mg Take 20 mg Univers 20 mg 10-08 by mouth ity of tablet 13:19: at [place] [address] bedtime. Medical Branch amLODIPine 2022-0 Yes 5mg Take 5 mg Un teo 5 mg tablet 10-08 by mouth ity of 13:19: at [place] [address] bedtime. Medical Branch aspirin 81 2022-0 Yes 81mg Take 81 mg U nivers mg EC 10-08 by mouth ity of tablet 13:19: in the [place] [address] morning. Medical Branch lisinopriL 2022-0 Yes 20mg Take 20 mg U nivers 20 mg 10-08 by mouth ity of tablet 13:19: in the [place] [address] morning Medical and 20 mg Branch in the evening. metFORMIN 2022-0 Yes 500mg Take 500 Uni vers 500 mg - mg by ity of tablet 13:19: mouth in the Medical morning Branch and 500 mg in the evening. Take with meals. pantoprazol 2022-0 Yes 40mg Take 40 mg Univers e 10-08 by mouth ity of (PROTONIX) 13:19: in the [place] 20 mg EC morning. Medical tablet Branch tamsulosin 2022-0 Yes Take by [facility] ers (FLOMAX) 10-08 mouth ity of 0.4 mg 24 13:19: daily. [place] hr capsule 28 Medical Branch FLUoxetine 2023-0 Yes 20mg Take 20 mg U nivers 20 mg 10-08 by mouth ity of capsule 13:19: in the [place] [address] morning. Medical Branch gabapentin 0 Yes 300mg Take 300 Un teo 300 mg - mg by ity of capsule 13:19: mouth 2 [place] [address] (two) Medical times Branch daily as needed. levETIRAcet 0 Yes 250mg Take 250 U nivers am (KEPPRA) 1- mg by ity of 250 mg 13:19: mouth in [facility] 28 the Medical morning Branch and 250 mg in the evening. memantine 0 Yes 10mg Take 10 mg Un teo 10 mg 10-08 by mouth ity of tablet 13:19: in the [place] morning Medical and 10 mg Branch in the evening. simvastatin Yes 20mg Take 20 mg Univers 20 mg 10-08 by mouth ity of tablet 13:19: at [place] [address] bedtime. Medical Branch Sliding Yes Subcutaneo Univ [...] 03:45: First dose [place] 00 on Mon [facility] 10/07/22 at Branch 2145, Until Discontinu ed, [...] First dose [place] 00 :30 on Mon [facility] 10/07/22 at Branch 2145, Until Discontinu ed, Routine dextrose 2023-0 Yes 250mL 250 mL, IV Un teo 10% (D10W) 10-08 Infusion, ity of bolus 03:32: PRN - SEE [place] infusion 30 INSTRUCTIO Medic al 250 mL [...] of bolus 03:32: 21:19 PRN - SEE [place] infusion 30 :30 INSTRUCTIO Medic al 250 [...] 0900, Until Discontinu ed, Routine sennosides- 2022-0 2022- No 1{tbl} 1 tablet, Univers docusate [...] Until Discontinu ed, Routine hydralAZINE 2022- No [id number] 10mg 10 mg, Univers (APRESOLINE 10-07 Slow IV ity of ) injection 12:15: 11:26 [place] 10 mg 00 :00 ONCE, 1 Medical dose, On Branch Mon10/07/22 at 0615, STAT hydralAZINE 2022- No [id number] 10mg 10 mg, Univers (APRESOLINE 10-07 Slow IV ity of ) injection 12:15: 11:26 [place] 10 mg 00 :00 ONCE, 1 Medical dose, On Branch Mon10/07/22 at 0615, STAT simvastatin 2023-0 Yes 20mg 20 mg, Univ ers (ZOCOR) 10-07 Oral, QHS, ity of tablet 20 03:00: First dose [place] mg 00 on [facility] 10/06/22 at [place] 2099, Until Discontinu ed, Routine amLODIPine Yes 5mg 5 mg, Univer s (NORVASC) 10-07 Oral, QHS, ity of tablet 5 mg 03:00: First dose [place] 00 on [facility] 10/06/22 at [place] 2100, Until Discontinu ed, Routine simvastatin 2022- No 20mg 20 mg, Uni vers (ZOCOR) 10-07 Oral, QHS, ity o f tablet 20 03:00: 21:19 First dose [place] mg 00 :30 on [facility] 10/06/22 at [place] 2099, Until Discontinu ed, Routine amLODIPine 2022- No 5mg 5 mg, [facility] 10-[facility] Oral, QHS, ity of tablet 5 mg 03:00: 21:19 First dose [place] 00 :30 on [facility] 10/06/22 at [place] 2099, Until Discontinu ed, Routine levETIRAcet Yes 250mg 250 mg, Un teo am (KEPPRA) 10-07 Oral, BID, it y of tablet 250 02:00: First dose [place] mg 00 on [facility] 10/06/22 at [place] 1999, Until Discontinu ed, Routine levETIRAcet 2022- No 250mg 250 mg, U nivers am (KEPPRA) 10-07 Oral, BID, i ty of tablet 250 02:00: 21:19 First dose [place] mg 00 :30 on [facility] 10/06/22 at [place] 2000, Until Discontinu ed, Routine carvediloL 2022- No [id number] 6.25mg Take 1 Univers 6.25 mg 10-07 tablet by ity of tablet 00:00: 05:59 mouth in [place] 00 :00 the Medical morning Branch and 1 tablet in the evening. Take with meals. Do all this for 30 days. carvediloL 2022- No [id number] 6.25mg Take 1 Univers 6.25 mg 1-27 02-27 tablet by ity of tablet 00:00: 05:59 mouth in [place] 00 :00 the Medical morning Branch and 1 tablet in the evening. Take with meals. Do all this for 30 days. carvediloL 2022-0 2022- No [id number] 6.25mg Take 1 Univers 6.25 mg -07 11-27 tablet by ity of tablet 00:00: 05:59 mouth in [place] 00 :00 the Medical morning Branch and 1 tablet in the evening. Take with meals. Do all this for 30 days. carvediloL 2022-0 2022- No [id number] 6.25mg Take 1 Univers 6.25 mg 10-07 02-16 tablet by ity of tablet 00:00: 00:00 mouth in [place] 00 :00 the Medical morning Branch and 1 tablet in the evening. Take with meals. Do all this for 30 days. lactated 2022-0 2022- No 500mL at 200 Unive rs ringers IV 10-06 mL/hr, 500 it y of infusion 20:15: 13:51 mL, [place] 500 mL 00 :00 Intravenou Medical s, ONCE, 1 Branch dose, On [place] 10/06/22 at 1415, Routine lactated 2022-0 2022- No 500mL at 200 Unive rs ringers IV 10-06 mL/hr, 500 it y of infusion 20:15: 13:51 mL, [place] 500 mL 00 :00 Intravenou Medical s, ONCE, 1 Branch dose, On [facility] 10/06/22 at 1415, Routine hydralAZINE 2022-2022- No 10mg 10 mg, Uni vers (APRESOLINE 10-06 Slow IV ity of ) injection 20:00: 19:15 [place] 10 mg 00 :00 ONCE, 1 Medical dose, On Branch [facility] 10/06/22 at 1400, STAT hydralAZINE 2022-0 2022- No 10mg 10 mg, Uni vers (APRESOLINE 10-06 Slow IV ity of ) injection 20:00: 19:15 [place] 10 mg 00 :00 ONCE, 1 Medical dose, On Branch [facility] 10/06/22 at 1400, STAT carvediloL Yes 6.25mg 6.25 mg, U nivers (COREG) 10-06 Oral, BID ity of tablet 6.25 19:30: MEALS, [place] mg 00 First dose Medical (after Branch last modificati on) on [place] 10/06/22 at 1330, Until Discontinu ed, Routine carvediloL 0 2022- No 6.25mg 6.25 mg, Univers (COREG) [...] last Branch modificati on) on [facility] 10/06/22 at 1145, Until Discontinu ed, Routine lisinopriL 0 2022- No 20mg 20 mg, Univ ers (PRINIVIL,Z 10-06 Oral, BID, i ty of ESTRIL) 17:45: 21:19 First dose [place] tablet 20 00 :30 (after Medical mg last Branch modificati on) on [facility] 10/06/22 at 1145, Until Discontinu ed, Routine acetaminoph 0 Yes 650mg 650 mg, Un teo en 10-06 Oral, ity of (TYLENOL) 17:33: Q6HPRN, [place] tablet 650 13 Starting Medic al mg on [facility] Branch 10/06/22 at 1133, Until Discontinu ed, Routine, Pain (scale 1-3) acetaminoph 2022-0 2022- No 650mg 650 mg, U nivers en 10-06 Oral, ity of (TYLENOL) 17:33: 21:19 Q6HPRN, [place] tablet 650 13 :30 Starting Medic al mg on [facility] Branch 10/06/22 at 1133, Until 10/08/22 [...] Pain (scale 4-6) hydralAZINE 2022-0 2022- No [id number] 10mg 10 mg, Univers (APRESOLINE 10-06 Slow IV ity of ) injection 17:30: 16:31 [place] 10 mg 00 :00 ONCE, 1 Medical dose, On Branch [facility] 10/06/22 at 1130, STAT hydralAZINE 2022-0 2022- No [id number] 10mg 10 mg, Univers (APRESOLINE 10-06 Slow IV ity of ) injection 17:30: 16:31 [place] 10 mg 00 :00 ONCE, 1 Medical dose, On Branch [facility] 10/06/22 at 1130, STAT lidocaine 2022- No ONCE INTRA U nivers 1% (PF) 10-06 PROCEDURE, ity o f (XYLOCAINE) 14:22: 15:52 Starting [place] injection 52 :21 on [facility] 10/06/22 at Branch 0822, Until [facility] 10/06/22 at 0952, Routine, CV Intraproce dure iodixanol 2022- No ONCE INTRA U nivers (VISIPAQUE 10-06 PROCEDURE, it y of 320-100 mL) 14:03: 15:52 Starting [place] injection 41 :21 on [facility] Medical 10/06/22 at Branch 0803, Until [place] 10/06/22 at 0952, Routine, CV Intraproce dure hydralAZINE 2022-0 2022- No [id number] 10mg Inject 0.5 Univers 20 mg/mL 10-06 mL ity of injection 00:00: 00:00 intravenou [place] 00 :00 sly once Medical now for 1 Branch dose. hydralAZINE 2022- No [id number] 10mg Inject 0.5 Univers 20 mg/mL 10-06 01-27 mL ity of injection 00:00: 00:00 intravenou [place] 00 :00 sly once Medical now for 1 Branch dose. amitriptyli 2021-09- No [id number] 25mg Take 1 Univers ne 25 mg 0-23 10-31 tablet by ity o f tablet 00:00: 04:59 mouth at [place] 00 :00 bedtime Medical for 7 Branch days. amitriptyli 2021-09- No [id number] 25mg Take 1 Univers ne 25 mg 0-23 10-31 tablet by ity o f tablet 00:00: 04:59 mouth at [place] 00 :00 bedtime Medical for 7 Branch days. amitriptyli 2021-09- No [id number] 25mg Take 1 Univers ne 25 mg 0-23 10-31 tablet by ity o f tablet 00:00: 04:59 mouth at [place] 00 :00 bedtime Medical for 7 Branch days. amitriptyli 2021-09- No [id number] 25mg Take 1 Univers ne 25 mg 0-23 10-31 tablet by ity o f tablet 00:00: 04:59 mouth at [place] 00 :00 bedtime Medical for 7 Branch days. tamsulosin 2021-09 Yes .4mg 0.4 mg, Univ ers (FLOMAX) 0-16 Oral, QHS, ity o f capsule 0.4 02:00: First dose [place] mg 00 on [facility] 06/25/22 Branch at 2100, Until Discontinu ed, Routine amLODIPine 2021-09 Yes 5mg 5 mg, Univer s (NORVASC) 0-16 Oral, QHS, ity of tablet 5 mg 02:00: First dose [place] 00 on [facility] 06/25/22 Branch at 2100, Until Discontinu ed, Routine tamsulosin 2021-09- No .4mg 0.4 mg, Uni vers (FLOMAX) 0-16 10-15 Oral, QHS, ity of capsule 0.4 02:00: 21:09 First dose [place] mg 00 :41 on [facility] 06/25/22 Branch at 2100, Until Discontinu ed, Routine amLODIPine 2021-09 No 5mg 5 mg, Unive rs (NORVASC) 0-16 10-15 Oral, QHS, ity of tablet 5 mg 02:00: 21:09 First dose [place] 00 :41 on Sat Medical 06/25/22 Branch at 2100, Until Discontinu ed, Routine pantoprazol 2021-09- No [id number] 40mg Take 1 Univers e 0-16 01-15 tablet by ity of (PROTONIX) 00:00: 05:59 mouth in [place] 40 mg EC 00 :00 the Medical tablet morning Branch for 90 days. vitamin 2021-09- No [id number] 1000ug Take 1 U nivers B-12 1,000 0-16 01-15 tablet by ity of mcg tablet 00:00: 05:59 mouth in [place] 00 :00 the Medical morning Branch for 90 days. pantoprazol 2021-09- No [id number] 40mg Take 1 Univers e 0-16 01-15 tablet by ity of (PROTONIX) 00:00: 05:59 mouth in [place] 40 mg EC 00 :00 the Medical tablet morning Branch for 90 days. vitamin 2021-09- No [id number] 1000ug Take 1 U nivers B-12 1,000 0-16 01-15 tablet by ity of mcg tablet 00:00: 05:59 mouth in [place] 00 :00 the Medical morning Branch for 90 days. pantoprazol 2021-09- No [id number] 40mg Take 1 Univers e 0-16 01-15 tablet by ity of (PROTONIX) 00:00: 05:59 mouth in [place] 40 mg EC 00 :00 the Medical tablet morning Branch for 90 days. vitamin 2021-09- No [id number] 1000ug Take 1 U nivers B-12 1,000 0-16 01-15 tablet by ity of mcg tablet 00:00: 05:59 mouth in [place] 00 :00 the Medical morning Branch for 90 days. pantoprazol 2021-09- No [id number] 40mg Take 1 Univers e 0-16 01-15 tablet by ity of (PROTONIX) 00:00: 05:59 mouth in [place] 40 mg EC 00 :00 the Medical tablet morning Branch for 90 days. vitamin 2021-09- No [id number] 1000ug Take 1 U nivers B-12 1,000 0-16 01-15 tablet by ity of mcg tablet 00:00: 05:59 mouth in [place] 00 :00 the Medical morning Branch for 90 days. pantoprazol 2021-09- No [id number] 40mg Take 1 Univers e 0-16 01-15 tablet by ity of (PROTONIX) 00:00: 05:59 mouth in [place] 40 mg EC 00 :00 the Medical tablet morning Branch for 90 days. vitamin 2021-09- No [id number] 1000ug Take 1 U nivers B-12 1,000 0-16 01-15 tablet by ity of mcg tablet 00:00: 05:59 mouth in [place] 00 :00 the Medical morning Branch for 90 days. pantoprazol 2021-09- No [id number] 40mg Take 1 Univers e 0-16 01-15 tablet by ity of (PROTONIX) 00:00: 05:59 mouth in [place] 40 mg EC 00 :00 the Medical tablet morning Branch for 90 days. vitamin 2021-09- No [id number] 1000ug Take 1 U nivers B-12 1,000 0-16 01-15 tablet by ity of mcg tablet 00:00: 05:59 mouth in [place] 00 :00 the Medical morning Branch for 90 days. pantoprazol 2021-09- No [id number] 40mg Take 1 Univers e 0-16 01-15 tablet by ity of (PROTONIX) 00:00: 05:59 mouth in [place] 40 mg EC 00 :00 the Medical tablet morning Branch for 90 days. vitamin 2021-09- No [id number] 1000ug Take 1 U nivers B-12 1,000 0-16 01-15 tablet by ity of mcg tablet 00:00: 05:59 mouth in [place] 00 :00 the Medical morning Branch for 90 days. pantoprazol 2021-09- No [id number] 40mg Take 1 Univers e 0-16 01-15 tablet by ity of (PROTONIX) 00:00: 05:59 mouth in [place] 40 mg EC 00 :00 the Medical tablet morning Branch for 90 days. vitamin 2021-09- No [id number] 1000ug Take 1 U nivers B-12 1,000 0-16 01-15 tablet by ity of mcg tablet 00:00: 05:59 mouth in [place] 00 :00 the Medical morning Branch for 90 days. pantoprazol 2021-09- No [id number] 40mg Take 1 Univers e 0-16 01-15 tablet by ity of (PROTONIX) 00:00: 05:59 mouth in [place] 40 mg EC 00 :00 the Medical tablet morning Branch for 90 days. vitamin 2021-09- No [id number] 1000ug Take 1 U nivers B-12 1,000 0-16 01-15 tablet by ity of mcg tablet 00:00: 05:59 mouth in [place] 00 :00 the Medical morning Branch for 90 days. pantoprazol 2021-09- No [id number] 40mg Take 1 Univers e 0-16 01-15 tablet by ity of (PROTONIX) 00:00: 05:59 mouth in [place] 40 mg EC 00 :00 the Medical tablet morning Branch for 90 days. vitamin 2021-09- No [id number] 1000ug Take 1 U nivers B-12 1,000 0-16 01-15 tablet by ity of mcg tablet 00:00: 05:59 mouth in [place] 00 :00 the Medical morning Branch for 90 days. pantoprazol 2021-09- No [id number] 40mg Take 1 Univers e 0-16 01-15 tablet by ity of (PROTONIX) 00:00: 05:59 mouth in [place] 40 mg EC 00 :00 the Medical tablet morning Branch for 90 days. vitamin 2021-09- No [id number] 1000ug Take 1 U nivers B-12 1,000 0-16 01-15 tablet by ity of mcg tablet 00:00: 05:59 mouth in [place] 00 :00 the Medical morning Branch for 90 days. pantoprazol 2021-09- No [id number] 40mg Take 1 Univers e 0-16 01-15 tablet by ity of (PROTONIX) 00:00: 05:59 mouth in [place] 40 mg EC 00 :00 the Medical tablet morning Branch for 90 days. vitamin 2021-09- No [id number] 1000ug Take 1 U nivers B-12 1,000 0-16 01-15 tablet by ity of mcg tablet 00:00: 05:59 mouth in [place] 00 :00 the Medical [facility] Branch for 90 days. vitamin 2021-09 Yes 1000ug 1,000 mcg, Un teo B-12 0-15 Oral, ity of (CYANOCOBAL 14:00: DAILY, [place] CODY) 00 First dose Medical tablet (after Branch 1,000 mcg last modificati on) on [facility] 06/25/22 at 0900, Until Discontinu ed, Routine magnesium 2021-09 No 2g 2 g, IV Univ ers sulfate in 0-15 10-15 Piggyback, it y of water 2 14:00: 14:38 Administer [place] as gram/50 mL 00 :00 over 60 Medica l (4 %) Minutes, Branch infusion 2 ONCE, 1 g dose, On [facility] 06/25/22 at 0900, Routine vitamin 2021-09- No 1000ug 1,000 mcg, U nivers B-12 0-15 10-15 Oral, ity of (CYANOCOBAL 14:00: 21:09 DAILY, [place] CODY) 00 :41 First dose Medical tablet (after Branch 1,000 mcg last modificati on) on [facility] 06/25/22 at 0900, Until Discontinu ed, Routine KCL 2021-09 No 40meq 40 mEq, Univers (KLOR-CON 0-15 10-15 Oral, ity of M20) tablet 13:45: 13:34 ONCE, 1 [place] 40 mEq 00 :00 dose, On Medical [facility] Branch 06/25/22 at 0845, Routine levETIRAcet 2021-09 Yes 250mg 250 mg, [place] am (KEPPRA) 0-15 Oral, BID, it y of tablet 250 13:00: First dose [place] mg 00 on [facility] 06/25/22 Branch at 0800, Until Discontinu ed, Routine levETIRAcet 2021-09- No 250mg 250 mg, U nivers am (KEPPRA) 0-15 10-15 Oral, BID, i ty of tablet 250 13:00: 21:09 First dose [place] mg 00 :41 on [facility] 06/25/22 Branch at 0800, Until Discontinu ed, Routine PEPCID 2021-09- No prn Univers MG ORAL TAB 0-15 10-15 ity of 12:45: 00:00 [place] 24 :00 Medical Branch B COMPLEX 1 2021-09- No None Unive rs ORAL TAB 0-15 10-15 Entered ity of 12:45: 00:00 [place] 24 :00 Medical Branch M-VIT ORAL 2021-09- No None Univer s 0-15 10-15 Entered ity of 12:45: 00:00 [place] 24 :00 Medical Branch PEPCID 20 2021-09- No prn Univers MG ORAL TAB 0-15 10-15 ity of 12:45: 00:00 [place] 24 :00 Medical Branch B COMPLEX 1 2021-09- No None Unive rs ORAL TAB 0-15 10-15 Entered ity of 12:45: 00:00 [place] 24 :00 Medical Branch M-VIT ORAL 2021-09- No None Univer s 0-15 10-15 Entered ity of 12:45: 00:00 [place] 24 :00 Medical Branch metFORMIN 2021-09- No [id number] 500mg Take 1 Univers 500 mg 09-24 tablet by ity of tablet 00:00: 05:59 mouth in [place] 00 :00 the Medical morning Branch and 1 tablet in the evening. Take with meals. Do all this for 90 days. tamsulosin 2021-09- No [id number] .4mg Take 1 Univers 0.4 mg 24 09-24 capsule by ity of hr capsule 00:00: 05:59 mouth at [facility] 00 :00 bedtime Medical for 90 Branch days. amLODIPine 2021-09- No [id number] 5mg Take 1 Univers 5 mg tablet 09-24 tablet by it y of 00:00: 05:59 mouth at [place] 00 :00 bedtime Medical for 90 Branch days. levETIRAcet 2021-09- No [id number] 250mg Take 1 Univers am 250 mg 0-14 tablet by ity of tablet 00:00: 05:59 mouth in [place] 00 :00 the Medical morning Branch and 1 tablet in the evening. Do all this for 90 days. lisinopriL 2021-09- No [id number] 20mg Take 1 Univers 20 mg 0-15 -14 tablet by ity of tablet 00:00: 05:59 mouth in [place] 00 :00 the Medical morning Branch and 1 tablet in the evening. Do all this for 90 days. FLUoxetine 2021-09- No [id number] 20mg Take 1 Univers 20 mg 0-15 -14 capsule by ity of capsule 00:00: 05:59 mouth in [place] 00 :00 the [facility] morning Branch for 90 days. memantine 2021-09- No [id number] 10mg Take 1 U nivers 10 mg 0-15 -14 tablet by ity of tablet 00:00: 05:59 mouth in [place] 00 :00 the [facility] morning Branch and 1 tablet in the evening. Do all this for 90 days. pyridostigm 2021-09- No [id number] 60mg Take 1 Univers ine 60 mg 0-15 -14 tablet by ity of tablet 00:00: 05:59 mouth as [place] 00 :00 needed for Medical Other Branch (HYPOTENSI ON) for up to 90 days. simvastatin 2021-09- No [id number] 20mg Take 1 Univers 20 mg 0-15 -14 tablet by ity of tablet 00:00: 05:59 mouth at [place] 00 :00 bedtime Medical for 90 Branch days. aspirin 81 2021-09- No [id number] 81mg Take 1 Univers mg chewable 0-15 -14 tablet by it y of tablet 00:00: 05:59 mouth in [place] 00 :00 the [facility] morning [place] for 90 days. KCL 20 mEq 2021-09- No [id number] 40meq Take 2 Univers tablet 0-15 -14 tablets by ity of 00:00: 05:59 mouth in [place] 00 :00 the [facility] morning [place] for 90 days. metFORMIN 2021-093- No [id number] 500mg Take 1 Univers 500 mg 0-15 -14 tablet by ity of tablet 00:00: 05:59 mouth in [place] 00 :00 the Medical morning Branch and 1 tablet in the evening. Take with meals. Do all this for 90 days. tamsulosin 2021-09- No [id number] .4mg Take 1 Univers 0.4 mg 24 0-15 -14 capsule by ity of hr capsule 00:00: 05:59 mouth at [place] 00 :00 bedtime Medical for 90 Branch days. amLODIPine 2021-09- No [id number] 5mg Take 1 Univers 5 mg tablet 0-14 tablet by it y of 00:00: 05:59 mouth at [place] 00 :00 bedtime Medical for 90 Branch days. levETIRAcet 2021-09- No [id number] 250mg Take 1 Univers am 250 mg 009-24 tablet by ity of tablet 00:00: 05:59 mouth in [place] 00 :00 the Medical morning Branch and 1 tablet in the evening. Do all this for 90 days. lisinopriL 2021-09- No [id number] 20mg Take 1 Univers 20 mg 0-15 - tablet by ity of tablet 00:00: 05:59 mouth in [place] 00 :00 the Medical morning Branch and 1 tablet in the evening. Do all this for 90 days. FLUoxetine 2021-09- No [id number] 20mg Take 1 Univers 20 mg 0-15 - capsule by ity of capsule 00:00: 05:59 mouth in [place] 00 :00 the Medical morning Branch for 90 days. memantine 2021-09- No [id number] 10mg Take 1 U nivers 10 mg 009-24 tablet by ity of tablet 00:00: 05:59 mouth in [place] 00 :00 the Medical morning Branch and 1 tablet in the evening. Do all this for 90 days. pyridostigm 2021-09- No [id number] 60mg Take 1 Univers ine 60 mg 0-09-24 tablet by ity of tablet 00:00: 05:59 mouth as [place] 00 :00 needed for Medical Other Branch (HYPOTENSI ON) for up to 90 days. simvastatin 2021-09- No [id number] 20mg Take 1 Univers 20 mg 0-15 -14 tablet by ity of tablet 00:00: 05:59 mouth at [place] 00 :00 bedtime Medical for 90 Branch days. aspirin 81 2021-09- No [id number] 81mg Take 1 Univers mg chewable 0-15 - tablet by it y of tablet 00:00: 05:59 mouth in [place] 00 :00 the Medical morning Branch for 90 days. KCL 20 mEq 2021-09- No [id number] 40meq Take 2 Univers tablet 0- tablets by ity of 00:00: 05:59 mouth in [place] 00 :00 the [facility] for 90 days. metFORMIN 2021-09- No [id number] 500mg Take 1 Univers 500 mg 015 -14 tablet by ity of tablet 00:00: 05:59 mouth in [place] 00 :00 the [facility] and 1 tablet in the evening. Take with meals. Do all this for 90 days. tamsulosin 2021-09- No [id number] .4mg Take 1 Univers 0.4 mg 24 009-24 capsule by ity of hr capsule 00:00: 05:59 mouth at [facility] 00 :00 bedtime [facility] for 90 Branch days. amLODIPine 2021-09- No [id number] 5mg Take 1 Univers 5 mg tablet 009-24 tablet by it y of 00:00: 05:59 mouth at [place] 00 :00 bedtime [facility] for 90 days. levETIRAcet 2021-09- No [id number] 250mg Take 1 Univers am 250 mg 09-24 tablet by ity of tablet 00:00: 05:59 mouth in [place] 00 :00 the [facility] and 1 tablet in the evening. Do all this for 90 days. lisinopriL 2021-09- No [id number] 20mg Take 1 Univers 20 mg 0- tablet by ity of tablet 00:00: 05:59 mouth in [place] 00 :00 the [facility] and 1 tablet in the evening. Do all this for 90 days. FLUoxetine 2021-09- No [id number] 20mg Take 1 Univers 20 mg 0-14 capsule by ity of capsule 00:00: 05:59 mouth in [place] 00 :00 the [facility] for 90 days. memantine 2021-09- No [id number] 10mg Take 1 U nivers 10 mg 0-15 -14 tablet by ity of tablet 00:00: 05:59 mouth in [place] 00 :00 the [facility] and 1 tablet in the evening. Do all this for 90 days. pyridostigm 2021-09- No [id number] 60mg Take 1 Univers ine 60 mg 0-15 -14 tablet by ity of tablet 00:00: 05:59 mouth as [place] 00 :00 needed for Medical Other Branch (HYPOTENSI ON) for up to 90 days. simvastatin 2021-09- No [id number] 20mg Take 1 [facility] 20 mg 0-15 -14 tablet by ity of tablet 00:00: 05:59 mouth at [place] 00 :00 bedtime Medical for 90 Branch days. aspirin 81 2021-09- No [id number] 81mg Take 1 [facility] mg chewable 0-15 -14 tablet by it y of tablet 00:00: 05:59 mouth in [place] 00 :00 the Medical morning Branch for 90 days. metFORMIN 2021-09- No [id number] 500mg Take 1 [facility] 500 mg 0-15 -14 tablet by ity of tablet 00:00: 05:59 mouth in [place] 00 :00 the Medical morning Branch and 1 tablet in the evening. Take with meals. Do all this for 90 days. tamsulosin 2021-09- No [id number] .4mg Take 1 [facility] 0.4 mg 24 0-25 09- capsule by ity of hr capsule 00:00: 05:59 mouth at [place] 00 :00 bedtime Medical for 90 Branch days. amLODIPine 2021-09- No [id number] 5mg Take 1 [facility] 5 mg tablet 0- tablet by it y of 00:00: 05:59 mouth at [place] 00 :00 bedtime Medical for 90 Branch days. levETIRAcet 2021-09- No [id number] 250mg Take 1 [facility] am 250 mg 0-15 - tablet by ity of tablet 00:00: 05:59 mouth in [place] 00 :00 the Medical morning Branch and 1 tablet in the evening. Do all this for 90 days. lisinopriL 2021-09- No [id number] 20mg Take 1 [facility] 20 mg 0-15 -14 tablet by ity of tablet 00:00: 05:59 mouth in [place] 00 :00 the Medical morning Branch and 1 tablet in the evening. Do all this for 90 days. FLUoxetine 2021-09- No [id number] 20mg Take 1 [facility] 20 mg 0-15 -14 capsule by ity of capsule 00:00: 05:59 mouth in [place] 00 :00 the Medical morning Branch for 90 days. memantine 2021-09- No [id number] 10mg Take 1 [facility] n[facility] 10 mg 009-24 tablet by ity of tablet 00:00: 05:59 mouth in [place] 00 :00 the Medical morning Branch and 1 tablet in the evening. Do all this for 90 days. pyridostigm 2021-09- No [id number] 60mg Take 1 [facility] ine 60 mg 009-24 tablet by ity of tablet 00:00: 05:59 mouth as [place] 00 :00 needed for Medical Other Branch (HYPOTENSI ON) for up to 90 days. simvastatin 2021-09- No [id number] 20mg Take 1 [facility] 20 mg 009-24 tablet by ity of tablet 00:00: 05:59 mouth at [place] 00 :00 bedtime Medical for 90 Branch days. aspirin 81 2021-09- No [id number] 81mg Take 1 [facility] mg chewable 09-24 tablet by it y of tablet 00:00: 05:59 mouth in [place] 00 :00 the [facility] morning [place] for 90 days. KCL 20 mEq 2021-09- No [id number] 40meq Take 2 [facility] tablet 09-24 tablets by ity of 00:00: 05:59 mouth in [place] 00 :00 the [facility] morning Branch for 90 days. metFORMIN 2021-09- No [id number] 500mg Take 1 [facility] 500 mg 09-24 tablet by ity of tablet 00:00: 05:59 mouth in [place] 00 :00 the Medical morning Branch and 1 tablet in the evening. Take with meals. Do all this for 90 days. tamsulosin 2021-09- No [id number] .4mg Take 1 [facility] 0.4 mg 24 09-24 capsule by ity of hr capsule 00:00: 05:59 mouth at [facility] 00 :00 bedtime Medical for 90 Branch days. amLODIPine 2021-09- No [id number] 5mg Take 1 [facility] 5 mg tablet 09-24 tablet by it y of 00:00: 05:59 mouth at [place] 00 :00 bedtime Medical for 90 Branch days. levETIRAcet 2021-09- No [id number] 250mg Take 1 [facility] am 250 mg 0-15 -14 tablet by ity of tablet 00:00: 05:59 mouth in [place] 00 :00 the Medical morning Branch and 1 tablet in the evening. Do all this for 90 days. lisinopriL 2021-09- No [id number] 20mg Take 1 [facility] 20 mg 0-15 -14 tablet by ity of tablet 00:00: 05:59 mouth in [place] 00 :00 the Medical morning Branch and 1 tablet in the evening. Do all this for 90 days. FLUoxetine 2021-09- No [id number] 20mg Take 1 [facility] 20 mg 0-15 -14 capsule by ity of capsule 00:00: 05:59 mouth in [place] 00 :00 the [facility] morning Branch for 90 days. memantine 2021-09- No [id number] 10mg Take 1 U nivers 10 mg 0-25 09-14 tablet by ity of tablet 00:00: 05:59 mouth in [place] 00 :00 the [facility] morning Branch and 1 tablet in the evening. Do all this for 90 days. pyridostigm 2021-09- No [id number] 60mg Take 1 [facility] ine 60 mg 0-25 09-14 tablet by ity of tablet 00:00: 05:59 mouth as [place] 00 :00 needed for Medical Other Branch (HYPOTENSI ON) for up to 90 days. simvastatin 2021-09- No [id number] 20mg Take 1 [facility] 20 mg 0-15 -14 tablet by ity of tablet 00:00: 05:59 mouth at [place] 00 :00 bedtime Medical for 90 Branch days. aspirin 81 2021-09- No [id number] 81mg Take 1 [facility] mg chewable 0-15 -14 tablet by it y of tablet 00:00: 05:59 mouth in [place] 00 :00 the Medical morning Branch for 90 days. KCL 20 mEq 2021-09- No [id number] 40meq Take 2 [facility] tablet 015 -14 tablets by ity of 00:00: 05:59 mouth in [place] 00 :00 the Medical morning Branch for 90 days. metFORMIN 2021-09- No [id number] 500mg Take 1 [facility] 500 mg 0-15 -14 tablet by ity of tablet 00:00: 05:59 mouth in [place] 00 :00 the Medical morning Branch and 1 tablet in the evening. Take with meals. Do all this for 90 days. tamsulosin 2021-09- No [id number] .4mg Take 1 [facility] 0.4 mg 24 0-15 -14 capsule by ity of hr capsule 00:00: 05:59 mouth at [place] 00 :00 bedtime Medical for 90 Branch days. amLODIPine 2021-09- No [id number] 5mg Take 1 [facility] 5 mg tablet 0-14 tablet by it y of 00:00: 05:59 mouth at [place] 00 :00 bedtime Medical for 90 Branch days. levETIRAcet 2021-09- No [id number] 250mg Take 1 [facility] am 250 mg 0- tablet by ity of tablet 00:00: 05:59 mouth in [place] 00 :00 the Medical morning Branch and 1 tablet in the evening. Do all this for 90 days. lisinopriL 2021-09- No [id number] 20mg Take 1 [facility] 20 mg 0-15 - tablet by ity of tablet 00:00: 05:59 mouth in [place] 00 :00 the Medical morning Branch and 1 tablet in the evening. Do all this for 90 days. FLUoxetine 2021-09- No [id number] 20mg Take 1 [facility] 20 mg 0-15 - capsule by ity of capsule 00:00: 05:59 mouth in [place] 00 :00 the Medical morning Branch for 90 days. memantine 2021-09- No [id number] 10mg Take 1 U nivers 10 mg 0-15 -14 tablet by ity of tablet 00:00: 05:59 mouth in [place] 00 :00 the Medical morning Branch and 1 tablet in the evening. Do all this for 90 days. pyridostigm 2021-09- No [id number] 60mg Take 1 [facility] ine 60 mg 0-15 -14 tablet by ity of tablet 00:00: 05:59 mouth as [place] 00 :00 needed for Medical Other Branch (HYPOTENSI ON) for up to 90 days. simvastatin 2021-09- No [id number] 20mg Take 1 [facility] 20 mg 0-15 -14 tablet by ity of tablet 00:00: 05:59 mouth at [place] 00 :00 bedtime Medical for 90 Branch days. aspirin 81 2021-09- No [id number] 81mg Take 1 [facility] mg chewable 0-15 -14 tablet by it y of tablet 00:00: 05:59 mouth in [place] 00 :00 the Medical morning Branch for 90 days. KCL 20 mEq 2021-09- No [id number] 40meq Take 2 [facility] tablet 0-15 -14 tablets by ity of 00:00: 05:59 mouth in [place] 00 :00 the Medical morning Branch for 90 days. metFORMIN 2021-09- No [id number] 500mg Take 1 [facility] 500 mg 0-15 -14 tablet by ity of tablet 00:00: 05:59 mouth in [place] 00 :00 the Medical morning Branch and 1 tablet in the evening. Take with meals. Do all this for 90 days. tamsulosin 2021-09- No [id number] .4mg Take 1 [facility] 0.4 mg 24 009-24 capsule by ity of hr capsule 00:00: 05:59 mouth at [facility] 00 :00 bedtime Medical for 90 Branch days. amLODIPine 2021-09- No [id number] 5mg Take 1 [facility] 5 mg tablet 0- tablet by it y of 00:00: 05:59 mouth at [place] 00 :00 bannertime Medical for 90 Branch days. levETIRAcet 2021-09- No [id number] 250mg Take 1 [facility] am 250 mg 0- tablet by ity of tablet 00:00: 05:59 mouth in [place] 00 :00 the Medical morning Branch and 1 tablet in the evening. Do all this for 90 days. lisinopriL 2021-09- No [id number] 20mg Take 1 [facility] 20 mg 0-15 -14 tablet by ity of tablet 00:00: 05:59 mouth in [place] 00 :00 the Medical morning Branch and 1 tablet in the evening. Do all this for 90 days. FLUoxetine 2021-09- No [id number] 20mg Take 1 [facility] 20 mg 0-15 -14 capsule by ity of capsule 00:00: 05:59 mouth in [place] 00 :00 the [facility] morning [place] for 90 days. memantine 2021-09- No [id number] 10mg Take 1 U nivers 10 mg 0-15 -14 tablet by ity of tablet 00:00: 05:59 mouth in [place] 00 :00 the Medical morning Branch and 1 tablet in the evening. Do all this for 90 days. pyridostigm 2021-09- No [id number] 60mg Take 1 [facility] ine 60 mg 009-24 tablet by ity of tablet 00:00: 05:59 mouth as [place] 00 :00 needed for Medical Other Branch (HYPOTENSI ON) for up to 90 days. simvastatin 2021-09- No [id number] 20mg Take 1 [facility] 20 mg 009-24 tablet by ity of tablet 00:00: 05:59 mouth at [place] 00 :00 bedtime Medical for 90 Branch days. aspirin 81 2021-09- No [id number] 81mg Take 1 [facility] mg chewable 009-24 tablet by it y of tablet 00:00: 05:59 mouth in [place] 00 :00 the Medical morning Branch for 90 days. KCL 20 mEq 2021-09- No [id number] 40meq Take 2 [facility] tablet 09-24 tablets by ity of 00:00: 05:59 mouth in [place] 00 :00 the Medical morning Branch for 90 days. metFORMIN 2021-09- No [id number] 500mg Take 1 [facility] 500 mg 009-24 tablet by ity of tablet 00:00: 05:59 mouth in [place] 00 :00 the Medical morning Branch and 1 tablet in the evening. Take with meals. Do all this for 90 days. tamsulosin 2021-09- No [id number] .4mg Take 1 [facility] 0.4 mg 24 09-24 capsule by ity of hr capsule 00:00: 05:59 mouth at [facility] 00 :00 bedtime Medical for 90 Branch days. amLODIPine 2021-09- No [id number] 5mg Take 1 [facility] 5 mg tablet 009-24 tablet by it y of 00:00: 05:59 mouth at [place] 00 :00 bedtime Medical for 90 Branch days. levETIRAcet 2021-09- No [id number] 250mg Take 1 [facility] am 250 mg 09-24 tablet by ity of tablet 00:00: 05:59 mouth in [place] 00 :00 the Medical morning Branch and 1 tablet in the evening. Do all this for 90 days. lisinopriL 2021-09- No [id number] 20mg Take 1 [facility] 20 mg 0-15 -14 tablet by ity of tablet 00:00: 05:59 mouth in [place] 00 :00 the Medical morning Branch and 1 tablet in the evening. Do all this for 90 days. FLUoxetine 2021-09- No [id number] 20mg Take 1 [facility] 20 mg 0-15 -14 capsule by ity of capsule 00:00: 05:59 mouth in [place] 00 :00 the [facility] morning [place] for 90 days. memantine 2021-09- No [id number] 10mg Take 1 U nivers 10 mg 0-15 - tablet by ity of tablet 00:00: 05:59 mouth in [place] 00 :00 the [facility] morning Branch and 1 tablet in the evening. Do all this for 90 days. pyridostigm 2021-09- No [id number] 60mg Take 1 [facility] ine 60 mg 009-24 tablet by ity of tablet 00:00: 05:59 mouth as [place] 00 :00 needed for Medical Other Branch (HYPOTENSI ON) for up to 90 days. simvastatin 2021-09- No [id number] 20mg Take 1 [facility] 20 mg 0- tablet by ity of tablet 00:00: 05:59 mouth at [place] 00 :00 bedtime Medical for 90 Branch days. aspirin 81 2021-09- No [id number] 81mg Take 1 [facility] mg chewable 009-24 tablet by it y of tablet 00:00: 05:59 mouth in [place] 00 :00 the [facility] morning [place] for 90 days. KCL 20 mEq 2021-09- No [id number] 40meq Take 2 [facility] tablet 0-14 tablets by ity of 00:00: 05:59 mouth in [place] 00 :00 the [facility] morning [place] for 90 days. metFORMIN 2021-09- No [id number] 500mg Take 1 [facility] 500 mg 0-15 -14 tablet by ity of tablet 00:00: 05:59 mouth in [place] 00 :00 the Medical morning Branch and 1 tablet in the evening. Take with meals. Do all this for 90 days. tamsulosin 2021-09- No [id number] .4mg Take 1 [facility] 0.4 mg 24 0-15 -14 capsule by ity of hr capsule 00:00: 05:59 mouth at [place] 00 :00 bedtime Medical for 90 Branch days. amLODIPine 2021-09- No [id number] 5mg Take 1 [facility] 5 mg tablet 0-15 -14 tablet by it y of 00:00: 05:59 mouth at [place] 00 :00 bedtime Medical for 90 Branch days. levETIRAcet 2021-09- No [id number] 250mg Take 1 [facility] am 250 mg 0-15 -14 tablet by ity of tablet 00:00: 05:59 mouth in [place] 00 :00 the Medical morning Branch and 1 tablet in the evening. Do all this for 90 days. lisinopriL 2021-09- No [id number] 20mg Take 1 [facility] 20 mg 0-15 -14 tablet by ity of tablet 00:00: 05:59 mouth in [place] 00 :00 the Medical morning Branch and 1 tablet in the evening. Do all this for 90 days. FLUoxetine 2021-09- No [id number] 20mg Take 1 [facility] 20 mg 0-15 -14 capsule by ity of capsule 00:00: 05:59 mouth in [place] 00 :00 the Medical morning Branch for 90 days. memantine 2021-09- No [id number] 10mg Take 1 U nivers 10 mg 0-15 -14 tablet by ity of tablet 00:00: 05:59 mouth in [place] 00 :00 the Medical morning Branch and 1 tablet in the evening. Do all this for 90 days. pyridostigm 2021-09- No [id number] 60mg Take 1 [facility] ine 60 mg 0-15 -14 tablet by ity of tablet 00:00: 05:59 mouth as [place] 00 :00 needed for Medical Other Branch (HYPOTENSI ON) for up to 90 days. simvastatin 2021-09- No [id number] 20mg Take 1 [facility] 20 mg 0-15 -14 tablet by ity of tablet 00:00: 05:59 mouth at [place] 00 :00 bedtime Medical for 90 Branch days. aspirin 81 2021-09- No [id number] 81mg Take 1 [facility] mg chewable 0-15 -14 tablet by it y of tablet 00:00: 05:59 mouth in [place] 00 :00 the [facility] for 90 days. KCL 20 mEq 2021-09- No [id number] 40meq Take 2 [facility] tablet 0- tablets by ity of 00:00: 05:59 mouth in [place] 00 :00 the [facility] for 90 days. metFORMIN 2021-09- No [id number] 500mg Take 1 [facility] 500 mg 0- tablet by ity of tablet 00:00: 05:59 mouth in [place] 00 :00 the [facility] and 1 tablet in the evening. Take with meals. Do all this for 90 days. tamsulosin 2021-09- No [id number] .4mg Take 1 [facility] 0.4 mg 24 009-24 capsule by ity of hr capsule 00:00: 05:59 mouth at [facility] 00 :00 bedtime [facility] for 90 Branch days. amLODIPine 2021-09- No [id number] 5mg Take 1 [facility] 5 mg tablet 009-24 tablet by it y of 00:00: 05:59 mouth at [place] 00 :00 [facility] for 90 Branch days. levETIRAcet 2021-09- No [id number] 250mg Take 1 [facility] am 250 mg 09-24 tablet by ity of tablet 00:00: 05:59 mouth in [place] 00 :00 the [facility] and 1 tablet in the evening. Do all this for 90 days. lisinopriL 2021-09- No [id number] 20mg Take 1 [facility] 20 mg 0- tablet by ity of tablet 00:00: 05:59 mouth in [place] 00 :00 the [facility] and 1 tablet in the evening. Do all this for 90 days. FLUoxetine 2021-09- No [id number] 20mg Take 1 [facility] 20 mg 0- capsule by ity of capsule 00:00: 05:59 mouth in [place] 00 :00 the [facility] for 90 days. memantine 2021-09- No [id number] 10mg Take 1 U nivers 10 mg 0- tablet by ity of tablet 00:00: 05:59 mouth in [place] 00 :00 the [facility] and 1 tablet in the evening. Do all this for 90 days. pyridostigm 2021-09- No [id number] 60mg Take 1 [facility] ine 60 mg 0-15 -14 tablet by ity of tablet 00:00: 05:59 mouth as [place] 00 :00 needed for Medical Other Branch (HYPOTENSI ON) for up to 90 days. simvastatin 2021-09- No [id number] 20mg Take 1 [facility] 20 mg 0-15 -14 tablet by ity of tablet 00:00: 05:59 mouth at [place] 00 :00 bedtime Medical for 90 Branch days. aspirin 81 2021-09- No [id number] 81mg Take 1 [facility] mg chewable 0-15 -14 tablet by it y of tablet 00:00: 05:59 mouth in [place] 00 :00 the Medical morning Branch for 90 days. KCL 20 mEq 2021-09- No [id number] 40meq Take 2 [facility] tablet 009-24 tablets by ity of 00:00: 05:59 mouth in [place] 00 :00 the Medical morning Branch for 90 days. metFORMIN 2021-09- No [id number] 500mg Take 1 [facility] 500 mg 009-24 tablet by ity of tablet 00:00: 05:59 mouth in [place] 00 :00 the Medical morning Branch and 1 tablet in the evening. Take with meals. Do all this for 90 days. tamsulosin 2021-09- No [id number] .4mg Take 1 [facility] 0.4 mg 24 009-24 capsule by ity of hr capsule 00:00: 05:59 mouth at [place] 00 :00 bedtime Medical for 90 Branch days. amLODIPine 2021-09- No [id number] 5mg Take 1 [facility] 5 mg tablet 009-24 tablet by it y of 00:00: 05:59 mouth at [place] 00 :00 bedtime Medical for 90 Branch days. levETIRAcet 2021-09- No [id number] 250mg Take 1 [facility] am 250 mg 0-09-24 tablet by ity of tablet 00:00: 05:59 mouth in [place] 00 :00 the Medical morning Branch and 1 tablet in the evening. Do all this for 90 days. lisinopriL 2021-09- No [id number] 20mg Take 1 [facility] 20 mg 0-15 -14 tablet by ity of tablet 00:00: 05:59 mouth in [place] 00 :00 the Medical morning Branch and 1 tablet in the evening. Do all this for 90 days. FLUoxetine 2021-09- No [id number] 20mg Take 1 [facility] 20 mg 0-15 -14 capsule by ity of capsule 00:00: 05:59 mouth in [place] 00 :00 the Medical morning Branch for 90 days. memantine 2021-09- No [id number] 10mg Take 1 U nivers 10 mg 0-15 -14 tablet by ity of tablet 00:00: 05:59 mouth in [place] 00 :00 the Medical morning Branch and 1 tablet in the evening. Do all this for 90 days. pyridostigm 2021-09- No [id number] 60mg Take 1 [facility] ine 60 mg 0-15 -14 tablet by ity of tablet 00:00: 05:59 mouth as [place] 00 :00 needed for Medical Other Branch (HYPOTENSI ON) for up to 90 days. simvastatin 2021-09- No [id number] 20mg Take 1 [facility] 20 mg 0-15 -14 tablet by ity of tablet 00:00: 05:59 mouth at [place] 00 :00 bedtime Medical for 90 Branch days. aspirin 81 2021-09- No [id number] 81mg Take 1 [facility] mg chewable 0-15 -14 tablet by it y of tablet 00:00: 05:59 mouth in [place] 00 :00 the [facility] morning Branch for 90 days. KCL 20 mEq 2021-09- No [id number] 40meq Take 2 [facility] tablet 0-15 -14 tablets by ity of 00:00: 05:59 mouth in [place] 00 :00 the Medical morning Branch for 90 days. metFORMIN 2021-09- No [id number] 500mg Take 1 [facility] 500 mg 0-15 -14 tablet by ity of tablet 00:00: 05:59 mouth in [place] 00 :00 the Medical morning Branch and 1 tablet in the evening. Take with meals. Do all this for 90 days. tamsulosin 2021-09- No [id number] .4mg Take 1 [facility] 0.4 mg 24 0-15 -14 capsule by ity of hr capsule 00:00: 05:59 mouth at [place] 00 :00 bedtime Medical for 90 Branch days. amLODIPine 2021-09- No [id number] 5mg Take 1 [facility] 5 mg tablet 0- tablet by it y of 00:00: 05:59 mouth at [place] 00 :00 bedtime Medical for 90 Branch days. levETIRAcet 2021-09- No [id number] 250mg Take 1 [facility] am 250 mg 0-14 tablet by ity of tablet 00:00: 05:59 mouth in [place] 00 :00 the Medical morning Branch and 1 tablet in the evening. Do all this for 90 days. lisinopriL 2021-09- No [id number] 20mg Take 1 [facility] 20 mg 009-24 tablet by ity of tablet 00:00: 05:59 mouth in [place] 00 :00 the Medical morning Branch and 1 tablet in the evening. Do all this for 90 days. FLUoxetine 2021-09- No [id number] 20mg Take 1 [facility] 20 mg 009-24 capsule by ity of capsule 00:00: 05:59 mouth in [place] 00 :00 the [facility] morning [place] for 90 days. memantine 2021-09- No [id number] 10mg Take 1 U nivers 10 mg 009-24 tablet by ity of tablet 00:00: 05:59 mouth in [place] 00 :00 the [facility] morning Branch and 1 tablet in the evening. Do all this for 90 days. pyridostigm 2021-09- No [id number] 60mg Take 1 [facility] ine 60 mg 0- tablet by ity of tablet 00:00: 05:59 mouth as [place] 00 :00 needed for Medical Other Branch (HYPOTENSI ON) for up to 90 days. simvastatin 2021-09- No [id number] 20mg Take 1 [facility] 20 mg 0-14 tablet by ity of tablet 00:00: 05:59 mouth at [place] 00 :00 bedtime Medical for 90 Branch days. aspirin 81 2021-09- No [id number] 81mg Take 1 [facility] mg chewable 0-14 tablet by it y of tablet 00:00: 05:59 mouth in [place] 00 :00 the Medical morning [place] for 90 days. KCL 20 mEq 2021-09- No [id number] 40meq Take 2 [facility] tablet 0-15 01-14 tablets by ity of 00:00: 05:59 mouth in [place] 00 :00 the Medical morning Branch for 90 days. gabapentin 2021-09- No [id number] 300mg Take 1 [facility] 300 mg 0-15 12-15 capsule by ity of capsule 00:00: 05:59 mouth as [place] 00 :00 needed for Medical Pain Branch (scale 4-6) for up to 60 days. gabapentin 2021-09- No [id number] 300mg Take 1 [facility] 300 mg 0-15 12-15 capsule by ity of capsule 00:00: 05:59 mouth as [place] 00 :00 needed for Medical Pain Branch (scale 4-6) for up to 60 days. gabapentin 2021-09- No [id number] 300mg Take 1 [facility] 300 mg 0-15 12-15 capsule by ity of capsule 00:00: 05:59 mouth as [place] 00 :00 needed for Medical Pain Branch (scale 4-6) for up to 60 days. gabapentin 2021-09- No [id number] 300mg Take 1 [facility] 300 mg 0-15 12-15 capsule by ity of capsule 00:00: 05:59 mouth as [place] 00 :00 needed for Medical Pain Branch (scale 4-6) for up to 60 days. gabapentin 2021-09- No [id number] 300mg Take 1 [facility] 300 mg 0-15 12-15 capsule by ity of capsule 00:00: 05:59 mouth as [place] 00 :00 needed for Medical Pain Branch (scale 4-6) for up to 60 days. gabapentin 2021-09- No [id number] 300mg Take 1 [facility] 300 mg 0-15 12-15 capsule by ity of capsule 00:00: 05:59 mouth as [place] 00 :00 needed for Medical Pain Branch (scale 4-6) for up to 60 days. gabapentin 2021-09- No [id number] 300mg Take 1 [facility] 300 mg 0-15 12-15 capsule by ity of capsule 00:00: 05:59 mouth as [place] 00 :00 needed for Medical Pain Branch (scale 4-6) for up to 60 days. gabapentin 2021-09- No [id number] 300mg Take 1 [facility] 300 mg 0-15 12-15 capsule by ity of capsule 00:00: 05:59 mouth as [place] 00 :00 needed for Medical Pain Branch (scale 4-6) for up to 60 days. gabapentin 2021-09- No [id number] 300mg Take 1 [facility] 300 mg 0-15 12-15 capsule by ity of capsule 00:00: 05:59 mouth as [place] 00 :00 needed for Medical Pain Branch (scale 4-6) for up to 60 days. gabapentin 2021-09- No [id number] 300mg Take 1 [facility] 300 mg 0-15 12-15 capsule by ity of capsule 00:00: 05:59 mouth as [place] 00 :00 needed for Medical Pain Branch (scale 4-6) for up to 60 days. gabapentin 2021-09- No [id number] 300mg Take 1 [facility] 300 mg 0-15 12-15 capsule by ity of capsule 00:00: 05:59 mouth as [place] 00 :00 needed for Medical Pain Branch (scale 4-6) for up to 60 days. amitriptyli 2021-09- No [id number] 100mg Take 2 Univers ne 50 mg 0-15 10-23 tablets by ity of tablet 00:00: 04:59 mouth at [place] 00 :00 bedtime Medical for 7 Branch days. amitriptyli 2021-09- No [id number] 100mg Take 2 Univers ne 50 mg 0-15 10-23 tablets by ity of tablet 00:00: 04:59 mouth at [place] 00 :00 bedtime Medical for 7 Branch days. amitriptyli 2021-09- No [id number] 100mg Take 2 Univers ne 50 mg [...] No ONCE INTRA U nivers 2% 0-14 - PROCEDURE, ity of (XYLOCAINE) 13:31: 13:36 Starting [place] 20 mg/mL (2 40 :35 on [facility] Medica l %) 06/24/22 Branch injection at 0831, Until 06/24/22 at 0836, Routine, CV Intraproce dure vancomycin 2021-09- No CONTINUOUS Univers 1000 mg in 0-24 06-14 PRN, ity of NS 200 mL 13:30: 13:30 Starting [place] as RTU IV 55 :55 on [facility] Piggyback 06/24/22 Branch at 0830, Until 06/24/22 at 0830, Administer over 60 Minutes, CV Intraproce dure metFORMIN 2021-09 Yes 500mg 500 mg, Univ ers (GLUCOPHAGE 0-13 Oral, BID ity of ) tablet 22:00: MEALS, [place] 500 mg 00 First dose Medical on [facility] 06/23/22 at 1700, Until Discontinu ed, Routine metFORMIN 2021-09- No 500mg 500 mg, Uni vers (GLUCOPHAGE 0- 10- Oral, BID it y of ) tablet 22:00: 21:09 MEALS, [place] 500 mg 00 :41 First dose Medical on [facility] 06/23/22 at 1700, Until Discontinu ed, Routine amLODIPine 2021-09- No 5mg 5 mg, Unive rs (NORVASC) 0- 10- Oral, ity of tablet 5 mg 16:52: 17:31 ONCE, 1 [place] 00 :00 dose, On [facility] 06/23/22 at 1200, Routine captopriL 2021-09- No 12.5mg 12.5 mg, U nivers (CAPOTEN) 0- 10- Oral, ity of tablet 12.5 04:45: 04:56 ONCE, 1 [place] mg 00 :00 dose, On [facility] 06/22/22 at 2345, Routine labetaloL 2021-09- No 5mg 5 mg, Slow U nivers (NORMODYNE) 0- 10- IV Push, ity of injection 5 03:45: 03:12 ONCE, 1 [place] mg 00 :00 dose, On [facility] 06/22/22 at 2245, Routine vitamin 2021-09- [...] :53 dose, On Medic al 0.9% (NS) [facility] Branch 100 mL IV 06/22/22 piggyback at 0815, Administer over 15 Minutes, 100 mL magnesium 2021-09 No 4g 4 g, IV Univ ers sulfate in 006-22 Piggyback, it y of water 4 12:15: 15:48 at 25 [place] gram/50 mL 00 :01 mL/hr Medical (8 %) IV Administer Branc h Piggyback 4 over 120 g Minutes, ONCE, 1 dose, On Mon06/22/22 at 0715, Routine amLODIPine 2021-09 No 5mg 5 mg, Unive rs (NORVASC) 0-12 10-13 Oral, ity of tablet 5 mg 08:30: 16:53 DAILY, [place] as 00 :37 First dose Medical on [facility] 06/22/22 at 0330, Until Discontinu ed, Routine melatonin 2021-09 Yes 3mg 3 mg, Univers (MELATIN) 0-12 Oral, QHS, ity of tablet 3 mg 02:00: First dose [place] 00 on [facility] 06/21/22 Branch at 2100, Until Discontinu ed, Routine melatonin 2021-09 No 3mg 3 mg, Univer s (MELATIN) 0-12 10-15 Oral, QHS, ity of tablet 3 mg 02:00: 21:09 First dose [place] 00 :41 on [facility] 06/21/22 Branch at 2100, Until Discontinu ed, Routine hydrOXYzine 2021-09 No 10mg 10 mg, Uni vers (ATARAX) 0- 10-12 Oral, ity of tablet 10 02:00: 01:08 ONCE, 1 [place] mg 00 :00 dose, On Medical [facility] 06/21/22 at 2100, Routine enoxaparin 2021-09 Yes 40mg 40 mg, Unive rs (LOVENOX) 0-11 Subcutaneo ity of injection 22:00: [place] 40 mg 00 First dose Medical on [facility] 06/21/22 at 1700, Until Discontinu ed, Routine enoxaparin 2021-09 No 40mg 40 mg, Univ ers (LOVENOX) 0-11 10-15 Subcutaneo ity of injection 22:00: 21:09 [place], DAILY, [place] 40 mg 00 :41 First dose Medical on [facility] 06/21/22 at 1700, Until Discontinu ed, Routine [...] 00 First dose Medical (HumaLOG) + on [facility] 06/21/22 Testing at 1200, Until Discontinu ed, Routine Sliding 2021-09- No Subcutaneo Uni vers Scale 0-11 10-15 us, TID ity of Insulin - 17:00: 21:09 MEALS+HS, [place] Lispro 00 :41 First dose Medical (HumaLOG) + on [facility] 06/21/22 Testing at 1200, Until Discontinu ed, Routine sulfur 2021-09- No [id number] 5mL 5 mL, Unive rs hexafluorid 0-11 10-11 Intravenou i ty of e microsphr 17:00: 17:00 s, ONCE, 1 [place] (LUMASON) 00 :00 dose, On Medica l injection 5 [facility] mL 06/21/22 at 1200, Routine
nutrition faculty member approving Restricted medication : WILTON NICHOLAS enalapril 2021-09 Yes 20mg 20 mg, Univer s (VASOTEC) 0-11 Oral, BID, ity of tablet 20 16:00: [place] dose [place] mg 00 on [facility] 06/21/22 Branch at 1100, Until Discontinu ed, Routine enalapril 2021-09- No 20mg 20 mg, Unive rs (VASOTEC) 0-11 10-15 Oral, BID, ity of tablet 20 16:00: 21:09 First dose [place] mg 00 :41 on [facility] 06/21/22 Branch at 1100, Until Discontinu ed, Routine dextrose 2021-09 Yes 250mL 250 mL, IV Un teo 10% (D10W) 0-11 Infusion, ity of bolus 15:42: PRN - SEE [place] infusion 37 INSTRUCTIO Medic al 250 mL [...] 34 Starting Medical injection 1 on [place] 06/21/22 at 1042, Until Discontinu ed, YOKO, Blood Glucose < or = 70 mg/dL and patient is unable to swallow or has mental changes. glucagon 2021-09- No 1mg 1 mg, Univers (GLUCAGEN 0-11 10-15 Intramuscu ity of DIAGNOSTIC 15:42: 21:09 lar, PRN, [place] KIT) 34 :41 Starting Medical injection 1 on [facility] mg 06/21/22 at 1042, Until 06/25/22 at 1609, YOKO, Blood Glucose < or = 70 mg/dL and patient is unable to swallow or has mental changes. acetaminoph 2021-09 Yes 650mg 650 mg, Un teo en 0-11 Oral, ity of (TYLENOL) 15:21: Q6HPRN, [place] tablet 650 10 Starting Medic al mg on [facility] 06/21/22 at 1021, Until Discontinu ed, Routine, Pain (scale 1-3) acetaminoph 2021-09- No 650mg 650 mg, U nivers en 0-11 - Oral, ity of (TYLENOL) 15:21: 21:09 Q6HPRN, [place] tablet 650 10 :41 Starting Medic al mg on [facility] 06/21/22 at 1021, Until 06/25/22 at 1609, Routine, Pain (scale 1-3) melatonin 2021-09- No 3mg 3 mg, Univer s (MELATIN) 006-21 Oral, ity of tablet 3 mg 09:15: 08:30 ONCE, 1 [place] 00 :[place] dose, On Medical [facility] 06/21/22 at 0415, Routine aspirin 2021-09- No 325mg 325 mg, Unive rs E.C. 006-21 Oral, ity of (ECOTRIN) 08:30: 08:30 ONCE, [place] tablet 325 00 :00 dose, On Medic al mg [facility] 06/21/22 at 0330, STAT atenoloL 2021-09- No 100mg 100 mg, Univ ers (TENORMIN) 006-21 Oral, ity of tablet 100 03:00: 02:13 ONCE, 1 [place] mg 00 :00 dose, On [facility] 06/20/22 at 2200, Routine cloNIDine 2021-09- No .2mg 0.2 mg, Univ ers (CATAPRES) 006-21 Oral, ity of tablet 0.2 02:15: 02:14 ONCE, 1 [place] mg 00 :00 dose, On [facility] 06/20/22 at 2115, STAT iopamidol 2021-09- No [id number] 150mL 150 mL, Univers (ISOVUE 0-10 10-10 Intravenou ity o f 370-500 mL) 21:15: 21:15 s, ONCE, 1 [place] injection 00 :00 dose, On Medica l 150 mL [facility] 06/20/22 at 1615, Routine acetaminoph 2021-09- No 1000mg 1,000 mg, Univers en 0-10 10-10 Oral, ity of (TYLENOL) 21:00: 20:46 ONCE, [place] tablet 00 :00 dose, On Medical 1,000 mg [facility] 06/20/22 at 1600, YOKO piperacilli 2021-09- No 3.375g 3.375 g, Univers n-tazobacta 0-10 10-11 IV ity of m (ZOSYN) 19:30: 18:13 [place]back, [place] 3.375 g in 00 :39 Q8H ABX, Medic al NaCl 0.9% First dose [place] (NS) 100 mL on [facility] MINI-BAG 06/20/22 at 1430, Until Discontinu [...] Medical Piggyback, Branch ONCE, 1 dose, On [facility] 06/20/22 at 1430, STAT tamsulosin 2021- [...] (NAMENDA) 5 03-29 tablet (5 Corina kes MG tablet 00:00: 23:59 mg total) Me dical 00 :00 by mouth 2 Center (two) times daily. memantine 2020- No 5mg Q.5D Take [facility] 5 03-29 tablet (5 Corina kes MG tablet 00:00: 23:59 mg total) Me dical 00 :00 by mouth 2 Center (two) times daily. [facility] Yes 10mg QD Take [address] [facility] mg tablet 7-09 by [facility]: daily. [address] Yes 10mg QD Take [address] [facility] mg tablet 7-09 by mouth [facility] 00:[facility]: daily. [address] Yes 10mg QD Take [address] [facility] mg tablet 7-09 by mouth [facility] 00:00: daily. [address] Yes 10mg QD Take [address] [facility] mg tablet 7-09 by mouth [facility] 00:00: daily. [address] Yes 10mg QD Take [address] [facility] mg tablet 7-09 by mouth [facility] 00:00: daily. [address] Yes 10mg QD Take [address] [facility] mg tablet 7-09 by mouth [facility] 00:00: daily. [address] Yes 10mg QD Take [address] [facility] mg tablet 7-09 by mouth [facility] 00:00: daily. [address] 10 2020-0 Yes 10mg QD Take [address] mg tablet 7-09 by mouth [facility] 00:00: daily. [address] 10 2020-0 Yes 10mg QD Take [address] [address] mg tablet 7-09 by mouth [facility] 00:00: daily. [address] 10 2020-0 Yes 10mg QD Take [address] [address] mg tablet 7-09 by mouth [facility] 00:00: daily. [address] 10 2020-0 Yes 10mg QD Take [address] mg tablet 7-09 by mouth [facility] 00:00: daily. [address] 10 2020-0 Yes 10mg QD Take [address] [address] mg tablet 7-09 by mouth [facility] 00:00: daily. [address] 10 2020-0 Yes 10mg QD Take [address] [facility] mg tablet 7-09 by mouth [facility] 00:00: daily. [address] simvastatin 2020-0 Yes 20mg QD Take [address] (ZOCOR) 20 5-13 by mouth [facility] MG tablet 00:00: nightly. [address] tamsulosin 2020-0 Yes .4mg Take 0.[address] [facility] (FLOMAX) 5-13 mg by [facility] 0.4 mg Cap 00:00: mouth Medica l 24 hr 00 Daily Center capsule (1800). simvastatin 2020-0 Yes 20mg QD Take [address] (ZOCOR) 20 5-13 by mouth [facility] MG tablet 00:00: nightly. [address] tamsulosin 2020-0 Yes .4mg Take 0.[address] [facility] (FLOMAX) 5-13 mg by [facility] 0.4 mg Cap 00:00: mouth Medica l 24 hr 00 Daily Center capsule (1800). simvastatin 2020-0 Yes 20mg QD Take [address] (ZOCOR) 20 5-13 by mouth [facility] MG tablet 00:00: nightly. [address] tamsulosin 2020-0 Yes .4mg Take 0.[address] [facility] (FLOMAX) 5-13 mg by [facility] 0.4 mg Cap 00:00: mouth Medica l 24 hr 00 Daily Center capsule (1800). simvastatin 2020-0 Yes 20mg QD Take [address] (ZOCOR) 20 5-13 by mouth [facility] MG tablet 00:00: nightly. [address] tamsulosin 2020-0 Yes .4mg Take 0.[address] [facility] (FLOMAX) 5-13 mg by [facility] 0.4 mg Cap 00:00: mouth Medica l 24 hr 00 Daily Center capsule (1800). simvastatin 2020-0 Yes 20mg QD Take [address] (ZOCOR) 20 5-13 by mouth [facility] MG tablet 00:00: nightly. [address] tamsulosin 2020-0 Yes .4mg Take 0.[address] [facility] (FLOMAX) 5-13 mg by [facility] 0.4 mg Cap 00:00: mouth Medica l 24 hr 00 Daily Center capsule (1800). simvastatin 2020-0 Yes 20mg QD Take [address] (ZOCOR) 20 5-13 by mouth [facility] MG tablet 00:00: nightly. [address] tamsulosin 2020-0 Yes .4mg Take 0.[address] [facility] (FLOMAX) 5-13 mg by [facility] 0.4 mg Cap 00:00: mouth Medica l 24 hr 00 Daily Center capsule (1800). simvastatin 2020-0 Yes 20mg QD Take [address] [facility] (ZOCOR) 20 5-13 by mouth [facility] MG tablet 00:00: nightly. [address] tamsulosin 2020-0 Yes .4mg Take 0.[address] [facility] (FLOMAX) 5-13 mg by [facility] 0.4 mg Cap 00:00: mouth Medica l 24 hr 00 Daily Center capsule (1800). simvastatin 2020-0 Yes 20mg QD Take [address] (ZOCOR) 20 5-13 by mouth [facility] MG tablet 00:00: nightly. [address] tamsulosin 2020-0 Yes .4mg Take 0.[address] [facility] (FLOMAX) 5-13 mg by [facility] 0.4 mg Cap 00:00: mouth Medica l 24 hr 00 Daily Center capsule (1800). simvastatin 2020-0 Yes 20mg QD Take [address] [facility] (ZOCOR) 20 5-13 by mouth [facility] MG tablet 00:00: nightly. [address] tamsulosin 2020-0 Yes .4mg Take 0.[address] [facility] [address] (FLOMAX) 5-13 mg by [facility] 0.4 mg Cap 00:00: mouth Medica l 24 hr 00 Daily Center capsule (1800). simvastatin 2020-0 Yes 20mg QD Take [address] (ZOCOR) 20 5-13 by mouth [facility] MG tablet 00:00: nightly. [address] tamsulosin 2020-0 Yes .4mg Take 0.[address] [address] (FLOMAX) 5-13 mg by [facility] 0.4 mg Cap 00:00: mouth Medica l 24 hr 00 Daily Center capsule (1800). simvastatin 2020-0 Yes 20mg QD Take [address] (ZOCOR) 20 5-13 by mouth [facility] MG tablet 00:00: nightly. [address] tamsulosin 2020-0 Yes .4mg Take 0.[address] [facility] (FLOMAX) 5-13 mg by [facility] 0.4 mg Cap 00:00: mouth Medica l 24 hr 00 Daily Center capsule (1800). simvastatin 2020-0 Yes 20mg QD Take [address] (ZOCOR) 20 5-13 by mouth [facility] MG tablet 00:00: nightly. [address] tamsulosin 2020-0 Yes .4mg Take 0.[address] [facility] (FLOMAX) 5-13 mg by [facility] 0.4 mg Cap 00:00: mouth Medica l 24 hr 00 Daily Center capsule (1800). simvastatin 2020-0 Yes 20mg QD Take [address] (ZOCOR) 20 5-13 by mouth [facility] MG tablet 00:00: nightly. [address] tamsulosin 2020-0 Yes .4mg Take 0.[address] [facility] (FLOMAX) 5-13 mg by [facility] 0.4 mg Cap 00:00: mouth Medica l 24 hr 00 Daily Center capsule (1800). omeprazole 2020-0 Yes 20mg QD Take [address] (PRILOSEC) 5-04 by mouth [facility] 20 MG 00:00: daily. Medical capsule [address] [place] [address] omeprazole 2020-0 Yes 20mg QD Take [address] (PRILOSEC) 5-04 by mouth [facility] 20 MG 00:00: daily. Medical capsule [address] [place] [address] omeprazole 2020-0 Yes 20mg QD Take [address] (PRILOSEC) 5-04 by mouth [facility] 20 MG 00:00: daily. Medical capsule [address] [place] [address] omeprazole 2020-0 Yes 20mg QD Take [address] (PRILOSEC) 5-04 by mouth [facility] 20 MG 00:00: daily. Medical capsule [address] omeprazole 2020-0 Yes 20mg QD Take [address] (PRILOSEC) 5-04 by mouth [facility] 20 MG 00:00: daily. Medical capsule [address] [place] omeprazole 2020-0 Yes 20mg QD Take [address] (PRILOSEC) 5-04 by mouth [facility] 20 MG 00:00: daily. Medical capsule [address] [place] [address] omeprazole 2020-0 Yes 20mg QD Take [address] (PRILOSEC) 5-04 by mouth [facility] 20 MG 00:00: daily. Medical capsule [address] [place] [address] omeprazole 2020-0 Yes 20mg QD Take [address] (PRILOSEC) 5-04 by mouth [facility] 20 MG 00:00: daily. Medical capsule [address] [place] [address] omeprazole 2020-0 Yes 20mg QD Take [address] (PRILOSEC) 5-04 by mouth [facility] 20 MG 00:00: daily. Medical capsule [address] [place] [address] omeprazole 2020-0 Yes 20mg QD Take [address] (PRILOSEC) 5-04 by mouth [facility] 20 MG 00:00: daily. Medical capsule [address] [place] [address] omeprazole 2020-0 Yes 20mg QD Take [address] (PRILOSEC) 5-04 by mouth [facility] 20 MG 00:00: daily. Medical capsule [address] [place] [address] omeprazole 2020-0 Yes 20mg QD Take [address] (PRILOSEC) 5-04 by mouth [facility] 20 MG 00:00: daily. Medical capsule [address] [place] [address] omeprazole 2020-0 Yes 20mg QD Take [address] (PRILOSEC) 5-04 by mouth [facility] 20 MG 00:00: daily. Medical [address] fLUoxetine 2019-0 Yes 20mg QD Take [address] (PROZAC) 20 8-23 by mouth Luke s MG capsule 00:00: daily. [address] melatonin 3 2018-0 Yes 3mg QD Take [address] mg Tab 8-23 by mouth [facility] tablet 00:00: nightly. [address] melatonin 3 2018-0 Yes 3mg QD Take [address] mg Tab 8-23 by mouth [facility] tablet 00:00: nightly. [address] fLUoxetine 2019-0 Yes 20mg QD Take [address] (PROZAC) 20 8-23 by mouth Luke s MG capsule 00:00: daily. [address] 3 2018-0 Yes 3mg QD Take [address] mg Tab 8-23 by mouth [facility] tablet 00:00: nightly. [address] fLUoxetine 2019-0 Yes 20mg QD Take [address] (PROZAC) 20 8-23 by mouth Luke s MG capsule 00:00: daily. [address] 3 0 Yes 3mg QD Take [address] mg Tab 8-23 by mouth [facility] tablet 00:00: nightly. [address] fLUoxetine 2019-0 Yes 20mg QD Take [address] (PROZAC) 20 8-23 by mouth Luke s MG capsule 00:00: daily. [address] 3 Yes 3mg QD Take [address] mg Tab 8-23 by mouth [facility] tablet 00:00: nightly. [address] fLUoxetine 2019-0 Yes 20mg QD Take [address] (PROZAC) 20 8-23 by mouth Luke s MG capsule 00:00: daily. [address] 3 Yes 3mg QD Take [address] mg Tab 8-23 by mouth [facility] tablet 00:00: nightly. [address] fLUoxetine 2019-0 Yes 20mg QD Take [address] (PROZAC) 20 8-23 by mouth Luke s MG capsule 00:00: daily. [address] 3 2018- Yes 3mg QD Take [address] mg Tab 8-23 by mouth [facility] tablet 00:00: nightly. [address] fLUoxetine 2019-0 Yes 20mg QD Take [address] (PROZAC) 20 8-23 by mouth Luke s MG capsule 00:00: daily. [address] 3 2018-0 Yes 3mg QD Take [address] mg Tab 8-23 by mouth [facility] tablet 00:00: nightly. [address] fLUoxetine 2019-0 Yes 20mg QD Take [address] (PROZAC) 20 8-23 by mouth Luke s MG capsule 00:00: daily. [address] 3 2018-0 Yes 3mg QD Take [address] mg Tab 8-23 by mouth [facility] tablet 00:00: nightly. [address] fLUoxetine 2019- Yes 20mg QD Take [address] (PROZAC) 20 8-23 by mouth Luke s MG capsule 00:00: daily. [address] melatonin 3 Yes 3mg QD Take [address] mg Tab 8-23 by mouth [facility] tablet 00:00: nightly. [address] fLUoxetine Yes 20mg QD Take [address] (PROZAC) 20 8-23 by mouth Luke s MG capsule 00:00: daily. [address] 3 Yes 3mg QD Take [address] mg Tab 8-23 by mouth [facility] tablet 00:00: nightly. [address] fLUoxetine Yes 20mg QD Take [address] (PROZAC) 20 8-23 by mouth Luke s MG capsule 00:00: daily. [address] 3 Yes 3mg QD Take [address] mg Tab 8-23 by mouth [facility] tablet 00:00: nightly. [address] fLUoxetine Yes 20mg QD Take [address] (PROZAC) 20 8-23 by mouth Luke s MG capsule 00:00: daily. [address] melatonin 3 Yes 3mg QD Take [address] mg Tab 8-23 by mouth [facility] tablet 00:00: nightly. [address] fLUoxetine Yes 20mg QD Take [address] (PROZAC) 20 8-23 by mouth Luke s MG capsule 00:00: daily. [address] bisacodyl 2018- Yes 10 mg = 1 Mem oria 10 mg 6-19 supp, NM, l rectal 21:04: Daily, PRN Elyse nn suppository 00 Constipati on, 0 Refill(s) Docusate 2018- Yes 100 mg = 1 Mem oria Sodium 100 6-19 cap, PO, l MG Oral 21:04: Q12H, 0 [place] Capsule 00 Refill(s) atorvastati Yes 10 mg = 1 M emoria n 10 mg 6-19 tab, PO, l oral tablet 21:04: Bedtime, 0 Austyn 00 Refill(s) sennosides, Yes 8.6 mg = 1 Memoria ASSISTED 8.6 MG 6-19 tab, PO, l Oral Tablet 21:04: Q12H, 0 Her antonio 00 Refill(s) levofloxaci Yes 500 mg = 1 Memoria n 500 mg 6-19 tab, PO, l oral tablet 21:04: [id number], 0 [place] 00 Refill(s) Humalog No Notes: Memoria 6-18 (Same as: l 16:30: Humalog ) [place] 00 Roll in palms of hands gently; [...] s with feeding tube less than 14 [place] (Dobhoff, J-tube etc) and pediatric and patients. [...] 6-16 (Same as: l 21:30: Humalog ) [place] 00 Roll in palms of hands gently; Do not shake `vigorousl y. "Single Patient Use Only " WASTE: F/P - Black; E - Municipal Trash Bin Stable for 28 days at room temperatur e. Expires in days from ____Date Insulin, 2018-0 No 4 unit, Memori a Aspart, 16 Route: l Human 21:30: SUB-Q, [place] TID-Before Meals, Dosing Weight 81.9, kg, Start date: 02/24/18 16:30:00 CDT, Duration: 30 day, Stop date: 03/26/18 11:30:00 CDT Lasix No Notes: Memoria -16 (Same as: l 20:54: Lasix) MEDICATION WASTE Product Size: 40 mg Product Wasted: ___ mg Potassium No Notes: Memori a Chloride 02-24 (Same as: l 12:00: KCL) Infuse over 2 hours. Levofloxaci No 500 mg, 1 M emoria n -16 tab, l 11:49: Route: PO, Austyn 00 Drug form: TAB, [id number], Dosing Weight 81.9, kg, Priority: NOW, Start [...] F/P l MG/ML 11:47: - Sink; E [place] Injection 00 - Municipal Trash Bin Potassium No Notes: Memori a Chloride -16 (Same as: l 07:49: KCL) Austyn 00 [...] s with feeding tube less than 14 [place] (Dobhoff, J-tube etc) and pediatric and patients. With food and full glass of water potassium No Notes: Memori a phosphate-s 6-16 (Same as: l odium 07:28: Phos-NaK) [place] phosphate 00 Each 1.5 250 mg-280 gm [...] as: l 07:28: Mag-Ox 400) Magnesium oxide 796qg=400d g elemental magnesium Dose=____m g magnesium oxide [...] l 3350 13:13: in 8 oz of [place] 00 water or juice. (Same as: Miralax) niCARdipine [...] No 10 mg, Memori a 6-13 Route: NM, l 14:02: Drug form: SUPP, ONCE, Dosing Weight 81.9, kg, Start date: 02/21/18 9:02:00 CDT, Stop date: 02/21/18 9:02:00 CDT nebivolol No Notes: Memori a 6-13 (same as: l 14:00: Bystolic) Miralax No Notes: Memoria 6-13 Dissolve l 14:00: in 8 oz of [place] 00 water or juice. (Same as: Miralax) piperacilli [...] Bin Tylenol No 1,000 mg, Memor ia - Route: PO, l 11:00: Q6H, Dosing Weight [...] 6-13 10 mL, l 05:41: Route: Austyn IVPB, PRN, Dosing Weight 81.9, kg, PRN Abnormal Lab Result, Start date: 02/21/18 0:41:00 CDT, Duration: 30 day, Stop date: 03/23/18 0:40:00 CDT, FOR ICU USE ONLY potassium No Notes: Memori a phosphate - (Same as: l 05:41: K [place] Phosphate. ) 1 mMol phoshate has 1.47 mEq potassium Infuse over 4 hours Potassium No Notes: Memori a Chloride 6- (Same as: l 05:41: Potassium Austyn 00 Chloride) Calcium No Notes: Memoria Carbonate - (Same As: l 500 MG 05:41: Tums) [place] Chewable 00 Calcium Tablet Carbonate 500 mg = 200 mg elemental calcium Dose = mg calcium carbonate ( mg elemental calcium) Magnesium No Notes: Memori a Sulfate 02-21 WASTE: F/P l 05:41: - Sink; E [place] 00 - Municipal Trash Bin potassium No Notes: Memori a phosphate-s - (Same as: l odium 05:41: Phos-NaK) [place]yn phosphate 00 Each 1.5 250 mg-280 gm pkt has mg-160 mg 250mg oral powder phosphorou for s. Mix reconstitut w/2.5oz ion water and stir. Calcium No Notes: Memoria Gluconate 02-21 WASTE: F/P l 05:41: - Sink; E [place] - Municipal Trash Bin Magnesium No Notes: Memori a Oxide - (Same as: l 05:41: Mag-Ox [place] 00 400) Magnesium oxide 546ob=723h g elemental magnesium Dose=____m g magnesium oxide (___mg elemental magnesium) Nicardipine No Notes: Dirk reji - Same as: l 05:40: Cardene [place] 00 Concentrat ion: (0.1 mg/ 1 ml) Sodium 2018 No 1,000 mL, Memori a Chloride 6- Rate: 75 l 0.9% IV 05:40: ml/hr, [place] 1,000 mL 00 Infuse over: 13.3 hr, Route: IV, Dosing Weight 81.9 kg, Total Volume: 1,000, Start date: 02/21/18 0:40:00 CDT, Duration: 30 day, Stop date: 03/23/18 0:39:00 CDT, 1.95, m2 Vancomycin No 2001 mg: Me moria - infuse l 05:00: over 2.5 Austyn 00 hours For adult patients only: Round to nearest 250 mg per Medical Staff approval MEDICATION WASTE Product Size: 1000 mg Product Wasted: ___ mg cefepime No Notes: Memoria - (Same As: l 05:00: Maxipime) [place] 00 MEDICATION WASTE Product Size: 1000 mg Product Wasted: ___ mg Lisinopril No Notes: Memor ia 02-21 (Same as: l 02:00: Prinivil, Zestril) atorvastati No Notes: Dirk reji n 02-21 (Same As: l 02:00: Lipitor) [place] 00 heparin No Notes: Memoria sodium, 02-20 porcine l porcine 21:00: heparin [place] 2500 UNT/ML 00 Injectable Solution Tramadol No 50 mg, 1 Memor ia 02-20 tab, l 19:45: Route: PO, Drug form: TAB, Q6H, Dosing Weight 81.9, kg, PRN Pain Score 4-6, Start date: 02/20/18 14:45:00 CDT, Duration: 30 day, Stop date: 03/22/18 14:44:00 CDT Acetaminoph No Notes: Do M emoria en 02-20 not exceed l 19:42: 4 gm/day. [place] 00 (Same as: Tylenol) Insulin No Notes: [...] 6-12 Route: IM, l 14:44: Drug form: Austyn 00 PDR/INJ, PRN, Dosing Weight 81.9, kg, [...] (ANES) 6-11 Drug form: l 14:34: SOLN, [place] 00 ONCE, Stop date: 02/19/18 9:34:00 CDT sugammadex No Notes: Memor ia 6-11 (Same as: l 14:23: Bridion) sugammadex No Notes: Memor ia 6-11 (Same as: l 14:01: Bridion) nebivolol No Notes: Memori a 6-11 (same as: l 14:00: Bystolic) Amlodipine No Notes: Memor ia 6-11 (Same as: l 14:00: Norvasc) Saline No Notes: Memoria Flush 0.9% 6 (Same as: l 14:00: BD [place]yn 00 Posiflush) Docusate No Notes: Memoria 6-11 (Same as: l 14:00: Colace) (Do Not Crush) sennosides, No Notes: Dirk reji ASSISTED 02-19 (Same as: l 14:00: Senokot) Levetiracet No Notes: Dirk reji am 6- Same as l 14:00: Keppra Mix with [...] phenylephri No Route: IV, Memoria ne (ANES) 11 Drug form: l 13:40: INJ, ONCE, Stop date: 02/19/18 8:40:00 CDT rocuronium No Route: IV, M emoria (ANES) 02-19 Drug form: l 13:40: INJ, ONCE, Stop date: 02/19/18 8:40:00 CDT propofol 2018-0 No Route: IV, Mem oria (ANES) 02-19 Drug form: l 13:40: INJ, ONCE, Stop date: 02/19/18 8:40:00 CDT lidocaine 2017-0 No Route: IV, Me moria (ANES) 02-19 Drug form: l 13:40: INJ, ONCE, Stop date: 02/19/18 8:40:00 CDT Sodium 2017-0 No Route: IV, Memor ia Chloride 02-19 Total l 0.9% IV 13:32: Volume: [place] (ANES) 1000 00 1,000, mL Start date: 02/19/18 8:32:00 CDT, Stop date: 02/19/18 9:32:00 CDT Hydralazine 2017-0 No 10 mg, Dirk reji 02-19 Route: l 13:29: IVP, Austyn 00 Q20Min, Dosing Weight 81.9, kg, PRN Elevated BP, Start date: 02/19/18 8:29:00 CDT, Duration: 2 doses or times, Stop date: Limited # of times Labetalol 2018-0 No 10 mg, Memori a 02-19 Route: l 13:29: IVP, Austyn 00 Q5Min, Dosing Weight 81.9, kg, PRN Elevated BP, Start date: 02/19/18 8:29:00 CDT, Duration: 5 doses or times, Stop date: Limited # of times Oxycodone 2017-0 No 5 mg, Memoria 02-19 Route: PO, l 13:29: Drug form: [place] 00 TAB, Q4H, Dosing Weight 81.9, kg, [...] 6-11 Route: PO, l 13:29: Drug form: [place] 00 TAB, ONCE, Dosing Weight 81.9, kg, [...] 2018-0 No 0.5 mg, Mem oria ne 611 Route: l 13:29: IVP, [place] 00 Q5Min, Dosing Weight 81.9, kg, PRN Pain Score 7-10, Start date: 02/19/18 8:29:00 CDT, Duration: 4 doses or times, Stop date: Limited # of times Ondansetron 2017-0 No 4 mg, Memor ia 02-19 Route: l 13:29: IVP, ONCE, Austyn 00 Dosing Weight 81.9, kg, PRN Nausea & Vomiting, Start date: 02/19/18 8:29:00 CDT Naloxone 2018-0 No 0.4 mg, Memori a 02-19 Route: l 13:29: IVP, [place]yn 00 Q2MIN, Dosing Weight 81.9, kg, PRN Narcotic Reversal, Start date: 02/19/18 8:29:00 CDT, Duration: 8 doses or times, Stop date: Limited # of times Flumazenil 2018-0 No 0.2 mg, Dirk reji 611 Route: l 13:29: IVP, PRN, Clay 00 Dosing Weight 81.9, kg, PRN Benzodiaze pine Reversal, Initial dose, Start date: 02/19/18 8:29:00 CDT, Duration: 30 day, Stop date: 03/21/18 8:28:00 CDT Sodium 2018-0 No Route: IV, Memor ia Chloride 6-11 Total l 0.9% IV 13:06: Volume: Clay (ANES) 500 00 500, Start mL date: 02/19/18 8:06:00 CDT, Stop date: 02/19/18 9:06:00 CDT propofol 2018-0 No Route: IV, Mem oria (ANES) 10 6-11 Drug form: l mg 12:55: INJ, Start Clay 00 date: 02/19/18 7:55:00 CDT, Stop date: 02/19/18 8:55:00 CDT remifentani 0 No Route: IV, Memoria l (ANES) 1 6-11 Drug form: l mg 12:55: INJ, Start Clay 00 date: 02/19/18 7:55:00 CDT, Stop date: [...] day, Stop date: 03/21/18 5:43:00 CDT Hydralazine 2018-0 No Notes: Dirk reji 6-11 (Same as: l 10:44: Apresoline Austyn 00 ) Push over 5 minutes potassium 2018-0 [...] 02-19 Route: PO, l 10:44: Drug form: Clay ERTAB, PRN, Dosing Weight 82.8, kg, PRN Abnormal Lab Result, Start date: 02/19/18 5:44:00 CDT, Duration: 30 day, Stop date: 03/21/18 5:43:00 CDT, FOR ICU USE ONLY Calcium 2018-0 No 1,000 mg, Memor ia Carbonate 11 Route: PO, l 500 MG 10:44: PRN, Austyn able 00 Dosing Tablet Weight 82.8, kg, PRN [...] 5:43:00 CDT, FOR ICU USE ONLY Magnesium 2017- No 2 gm, Memoria Sulfate 6-11 Route: l 10:44: IVPB, PRN, Clay Dosing Weight 82.8, kg, PRN Abnormal Lab Result, Start date: 02/19/18 5:44:00 CDT, Duration: 30 day, Stop date: 03/21/18 5:43:00 CDT, FOR ICU USE ONLY Magnesium No 800 mg, Memor ia Oxide 6-11 Route: PO, l 10:44: PRN, Austyn Dosing Weight 82.8, kg, PRN Abnormal Lab Result, FOR ICU USE ONLY, Start date: 02/19/18 5:44:00 CDT, Duration: 30 day, Stop date: 03/21/18 5:43:00 CDT potassium No 2 pkt, Memori a phosphate-s 6-11 Route: PO, l odium 10:44: Dosing Clay phosphate 00 Weight 250 mg-280 82.8, kg, mg-160 mg PRN, PRN oral powder Abnormal for Lab reconstitut Result, ion FOR ICU USE ONLY, Start date: 02/19/18 5:44:00 CDT, Duration: 30 day, Stop date: 03/21/18 5:43:00 CDT Calcium 2017- No Notes: Memoria Gluconate - WASTE: F/P l 09:36: - Sink; E - [facility] Trash Bin Calcium No Notes: Memoria Carbonate -11 (Same As: l 500 MG 09:36: Tums) Austyn Chewable Calcium Tablet Carbonate 500 mg = 200 mg elemental calcium Dose = mg calcium carbonate ( mg elemental calcium) sodium No 15 mmol, 5 Memor ia phosphate 6-11 mL, Route: l 09:36: IVPB, PRN, Austyn Dosing Weight 82.8, kg, PRN Abnormal Lab Result, Start date: 02/19/18 4:36:00 CDT, Duration: 30 day, Stop date: 03/21/18 4:35:00 CDT, FOR ICU USE ONLY potassium 2017- No Notes: Memori a phosphate 6-11 (Same as: l 09:36: K Austyn 00 Phosphate. ) 1 mMol phoshate has 1.47 mEq potassium Infuse over 4 hours Potassium No Notes: Memori a Chloride - (Same as: l 09:36: Potassium Clay 00 Chloride) potassium No Notes: Memori a phosphate-s - (Same as: l odium 09:36: Phos-NaK) Clay phosphate 00 Each 1.5 250 mg-280 gm pkt has mg-160 mg 250mg oral powder phosphorou for s. Mix reconstitut w/2.5oz ion water and stir. Magnesium No Notes: Memori a Sulfate 02-19 WASTE: F/P l 09:36: - Sink; E [place] 00 - [facility] Trash Bin Magnesium No Notes: Memori a Oxide 02-19 (Same as: l 09:36: Mag-Ox Austyn 400) Magnesium oxide 156cn=625c g elemental magnesium Dose=____m g magnesium oxide (___mg elemental magnesium) Sodium No 1,000 mL, Memori a Chloride 11 1,000 l 0.9% 09:34: ml/hr, Clay (Bolus) IV 00 Infuse Over: 1 hr, Route: IV, 1,000, Drug form: INJ, ONCE, Priority: STAT, Dosing Weight 82.8 kg, Start date: 02/19/18 4:34:00 CDT, Stop date: 02/19/18 4:34:00 CDT Saline No Notes: Memoria Flush 0.9% - (Same as: l 09:27: BD Austyn 00 Posiflush) Ondansetron No Notes: Dirk reji - (Same as: l 09:27: Zofran) MEDICATION WASTE [...] Route: PO, l Hydrocodone 09:27: Drug Form: Clay Bitartrate 00 TAB, 10 MG Oral Dosing Tablet Weight 82.8, kg, Q4H, PRN Pain Score 4-6, Start date: 02/19/18 4:27:00 CDT, Duration: 30 day, Stop date: 03/21/18 4:26:00 CDT Sodium 2017- No 1,000 mL, Memori a Chloride 6-11 Rate: 50 l 0.9% IV 09:27: ml/hr, Clay 1,000 mL 00 Infuse over: 20 hr, [...] MG ORAL TAB 6-11 ity of 04:52: [address] B COMPLEX 1 Yes None Univer s ORAL TAB 6-11 Entered ity of 04:52: [address] M-VIT ORAL Yes None Univers 6-11 Entered ity of 04:52: [address] 20 Yes prn Univers MG ORAL TAB 6-11 ity of 04:52: [address] 1 Yes None Univer s ORAL TAB 6-11 Entered ity of 04:52: [address] M-VIT ORAL Yes None Univers 6-11 Entered ity of 04:52: [address] 20 Yes prn Univers MG ORAL TAB 6-11 ity of 04:52: [address] 1 Yes None Univer s ORAL TAB 6-11 Entered ity of 04:52: [address] Yes None Univers 6-11 Entered ity of 04:52: [address] 20 Yes prn Univers MG ORAL TAB 6-11 ity of 04:52: [address] 1 Yes None Univer s ORAL TAB 6-11 Entered ity of 04:52: [address]-VIT ORAL Yes None Univers 6-11 Entered ity of 04:52: [address] 20 Yes prn Univers MG ORAL TAB 6-10 ity of 23:52: [address] 1 Yes None Univer s ORAL TAB 6-10 Entered ity of 23:52: [address]-VIT ORAL Yes None Univers 6-10 Entered ity of 23:52: [address] 20 Yes prn Univers MG ORAL TAB 6-10 ity of 23:52: [address] 1 Yes None Univer s ORAL TAB 6-10 Entered ity of 23:52: [address] M-VIT ORAL Yes None Univers 6-10 Entered ity of 23:52: [address] Levetiracet Yes 500 mg = 1 [...] emoria en 6-05 0 l 15:03: Refill(s) Clay 00 nebivolol 5 Yes 30 mg = 6 M emoria mg oral 6-05 tab, PO, l tablet 15:03: Daily, 0 Clay 00 Refill(s) lisinopril Yes 20 mg = 1 Me moria 20 mg oral 6-05 tab, PO, l tablet 15:03: Q12H, 0 Clay 00 Refill(s) Insulin Yes 25 unit, Memori a Glargine 6-05 SUB-Q, l 100 UNT/ML 15:03: Bedtime, 0 H ermann Injectable 00 Refill(s) Solution [Lantus] amLODIPine Yes 10 mg = 1 Me moria 10 mg oral 6-05 tab, PO, l tablet 15:03: Daily, 0 Clay 00 Refill(s) Potassium No Notes: Memori a Chloride 6-05 (Same as: l 14:56: K-Dur 20) Clay "Do Not Crush" For patients unable to swallow tablet, dissolve in one half glass of water. Allow about 2 minutes for the tablets to disintegra te. Stir before giving to prepare slurry and administer . Please exclude Patient s with feeding tube less than 14 [place] (Dobhoff, J-tube etc) and pediatric and patients. With food and full glass of water Potassium No Notes: Memori a Chloride 6-04 (Same as: l 16:00: K-Dur 20) Clay 00 "Do Not Crush" For patients unable to swallow tablet, dissolve in one half glass of water. Allow about 2 minutes for the tablets to disintegra te. Stir before giving to prepare slurry and administer . Please exclude Patient s with feeding tube less than 14 [place] (Dobhoff, J-tube etc) and pediatric and patients. [...] s with feeding tube less than 14 [place] (Dobhoff, J-tube etc) and pediatric and patients. With food and full glass of water Clonidine No Notes: Memori a 02-11 (Same As: l 21:00: Catapres) Sodium Yes 3 gm = 3 Memoria Chloride 02-11 tab, NJ, l 1000 MG 18:08: TID-Before [...] F/P l 23:44: - Black; E - [facility] Trash Bin Stable for 28 days at [...] day, Stop date: 03/12/18 18:43:00 CDT Sodium No 3 gm, 3 Memoria Chloride 6-02 [...] reji 6-01 acetaminop l 18:34: hen = Clay 00 4000mg/day (4 gm/day). (Same as: Tylenol) [...] Memoria 5-31 (Same as: l 18:18: Norvasc) Clay 00 heparin No Notes: Memoria sodium, 5-31 porcine l porcine 14:00: heparin Austyn 2500 UNT/ML 00 Injectable Solution Lisinopril No Notes: Memor ia 5-31 (Same as: l 14:00: Prinivil, Clay 00 Zestril) Bystolic No Notes: Memoria 5-31 (same as: l 14:00: Bystolic) Nicardipine No Notes: Dirk reji 5-31 Same as: l 08:09: Cardene Concentrat ion: (0.1 mg/ 1 ml) nebivolol No 10 mg = 1 Mem oria 10 MG Oral 31 tab, PO, l Tablet 03:55: Daily, # Clay [Bystolic] 00 30 tab, 0 Refill(s) Bystolic No PO, Daily, Mem oria 5-31 0 l 03:55: Refill(s) Coreg No Notes: Memoria 5-30 Give with l 22:53: food. (Same As: Coreg) Lisinopril No Notes: Memor ia 5-30 (Same as: l 13:59: Prinivil, Clay 00 Zestril) Insulin No Notes: Memoria Glargine [...] 5-30 Route: IM, l 13:57: Drug form: Clay 00 PDR/INJ, PRN, Dosing Weight 82.8, kg, PRN Blood Glucose Results, Start date: 02/07/18 8:57:00 CDT, Duration: 30 day, Stop date: 03/09/18 8:56:00 CDT heparin No Notes: Memoria sodium, 5-30 porcine l porcine 13:00: heparin Clay 2500 UNT/ML 00 Injectable Solution Insulin No Notes: Memoria Glargine 5-30 Same as: l 100 UNT/ML 02:00: Lantus) Do H ermann Injectable 00 not hold Solution insulin [Lantus] without contacting prescriber WASTE: F/P - Black; E - [facility] Trash Bin Zocor No Notes: Memoria 5-30 (Same as: l 02:00: Zocor) Clay 00 Melatonin 3 No Notes: Dirk reji MG Extended -30 (Same as: l Release 02:00: Melatonin) Herm roxanne Tablet 00 Levetiracet No Notes: Dirk reji am 5-29 (Same l 23:00: as:Keppra) Clay 00 Sodium No 3 gm, 3 Memoria [...] Memoria 5-29 Tablet l 14:00: should not Clay 00 be chewed or crushed. (Same as: Protonix) Flomax No Notes: Memoria 5-29 (Same As: l 14:00: Flomax) Clay "Do Not Crush" Tylenol No 100.4 F, [...] 5-29 tab, PO, l tablet 03:54: Daily 00 Fluoxetine Yes 20 mg = 1 Me moria 20 MG Oral 5-29 cap, PO, l Capsule 03:54: Daily Clay [Prozac] 00 gabapentin Yes 300 mg = 1 M emoria 300 MG Oral 5-29 cap, PO, l Capsule 03:54: TID amitriptyli No 100 mg = 1 Memoria ne 100 mg 5-29 tab, PO, l oral tablet 03:54: Bedtime Her antonio 00 pantoprazol Yes 40 mg = 2 M emoria e 20 MG 5-29 tab, PO, l Enteric 03:54: Daily Clay Coated 00 Tablet [Protonix] clopidogrel No 75 mg = 1 M emoria 75 MG Oral 5-29 tab, PO, l Tablet 03:54: Daily Clay [Plavix] 00 Metformin Yes 500 mg = 1 Me moria hydrochlori 5-29 tab, PO, l de 500 MG 03:54: BID-Meals Her antonio Oral Tablet Simvastatin Yes 20 mg = 1 M emoria 20 MG Oral 5-29 tab, PO, l Tablet 03:54: Bedtime Austyn [Zocor] nebivolol No 10 mg = 1 Mem oria 10 MG Oral 5-29 tab, PO, l Tablet 03:54: Daily Clay [Bystolic] 00 Tamsulosin Yes 0.4 mg = 1 M emoria hydrochlori 5-29 cap, PO, l de 0.4 MG 03:54: Daily Clay Oral 00 Capsule [Flomax] Omeprazole Yes 20 mg = 1 Me moria 20 MG 5-29 cap, PO, l Enteric 03:54: Daily Clay Coated 00 Capsule [Prilosec] Insulin No 20 unit, Memori a Glargine 5-29 SUB-Q, l 100 UNT/ML 03:54: Bedtime Herm roxanne Injectable 00 Solution [Lantus] Saline No Notes: Memoria Flush 0.9% -29 (Same as: l 02:00: BD Clay Posiflush) Docusate No Notes: Memoria 5-29 (Same as: l 02:00: Colace) Austyn 00 sennosides, No Notes: Dirk reji ASSISTED 5-29 (Same as: l 02:00: Senokot) Tylenol No Notes: Do Memor ia 5-29 not exceed l 01:30: 4 gm/day. Austyn (Same as: Tylenol) Labetalol No 10 mg, 2 Dirk reji 5-29 mL, Route: l 01:30: IVP, Drug form: INJ, Q1H, Dosing Weight 80, kg, PRN Hypertensi on, Start date: 02/05/18 20:30:00 CDT, Duration: 30 day, Stop date: 03/07/18 20:29:00 CDT Hydralazine No Notes: Dirk reji 5-29 (Same as: l 01:30: Apresoline ) Push over 5 minutes Calcium No Notes: Memoria Carbonate -29 (Same As: l 500 MG 01:25: Tums) Austyn Chewable Calcium Tablet Carbonate 500 mg = 200 mg elemental calcium Dose = mg calcium carbonate ( mg elemental calcium) Magnesium No Notes: Memori a Oxide -29 (Same as: l 01:25: Mag-Ox Clay 00 400) Magnesium oxide 731yc=800x g elemental magnesium Dose=____m g magnesium oxide (___mg elemental magnesium) Calcium No Notes: Memoria Gluconate - WASTE: F/P l 01:25: - Sink; E Austyn - Municipal Trash Bin Magnesium No Notes: Memori a Sulfate 02-06 WASTE: F/P l 01:25: - Sink; E Austyn 00 - Municipal Trash Bin Potassium No Notes: Memori a Chloride 5-29 (Same as: l 01:25: KCL) Clay 00 Infuse no faster than 10 mEq/hr if given peripheral ly. potassium No Notes: Memori a phosphate-s -29 (Same as: l odium 01:25: Phos-NaK) Austyn phosphate 00 Each 1.5 250 mg-280 gm pkt has mg-160 mg 250mg oral powder phosphorou for s. Mix reconstitut w/2.5oz ion water and stir. potassium No Notes: Memori a phosphate -29 (Same as: l 01:25: K Clay Phosphate. ) 1 mMol phoshate has 1.47 mEq potassium Infuse over 4 hours sodium 2017- No 30 mmol, Memoria phosphate 5-29 10 mL, l 01:25: Route: Austyn 00 IVPB, PRN, Dosing Weight 80, kg, PRN Abnormal Lab Result, Start date: 02/05/18 20:25:00 CDT, Duration: 30 day, Stop date: 03/07/18 20:24:00 CDT, FOR ICU USE ONLY Sodium 2017- No 1,000 mL, Memori a Chloride 5-29 1,000 l 0.9% 01:21: ml/hr, Austyn (Bolus) IV 00 Infuse Over: 1 hr, Route: IV, 1,000, Drug form: INJ, ONCE, Priority: STAT, Dosing Weight 80 kg, Start date: 02/05/18 20:21:00 CDT, Stop date: 02/05/18 20:21:00 CDT Sodium No 1,000 mL, Memori a Chloride 5-29 Rate: 50 l 0.9% IV 01:21: ml/hr, Clay 1,000 mL 00 Infuse over: 20 hr, Route: IV, Dosing Weight 82.8 kg, Total Volume: 1,000, Start date: 02/05/18 20:21:00 CDT, Stop date: 03/07/18 20:20:00 CDT Lorazepam No Notes: Memori a 5-29 (Same as: l 00:29: Ativan) Clay 00 Ativan No Notes: Memoria 5-28 (Same as: l 23:56: Ativan) Austyn 00 Ativan No 1 mg, Memoria 5-28 Route: l 23:48: IVP, Drug form: INJ, ONCE, Dosing Weight 80, kg, PRN Anxiety, Start date: 02/05/18 18:48:00 CDT Dextrose No 6.25 gm, Memor ia 50% Syringe 02-05 12.5 mL, l 23:05: Route: Clay 00 IVP, Drug Form: INJ, Dosing Weight [...] 50 l 0.9% IV 23:05: ml/hr, Austyn 18436 mL 00 Infuse over: 200 hr, Route: IV, Dosing Weight 80 kg, Total Volume: 10,000, Start date: 02/05/18 18:05:00 CDT, Duration: 30 day, Stop date: 03/07/18 18:04:00 CDT Acetaminoph No Notes: Do M emoria en 325 MG / 5-28 not exceed l Hydrocodone 23:05: 4gm/day of Austyn Bitartrate 00 acetaminop 10 MG Oral hen. (Same Tablet as: [place] 325/10) Acetaminoph No Notes: Dirk reji en 325 MG / 5-28 (Same as: l Hydrocodone 23:05: [place] Elyse nn Bitartrate 00 325/5) Do 5 MG Oral not exceed Tablet 4gm/day of acetaminop hen. Morphine No Notes: Memoria 02-05 (Same l 23:05: as:MORPhin Austyn 00 e Sulfate) Bisacodyl No Notes: Memori a 02-05 (Same As: l 23:05: Dulcolax, Clay 00 Bisco-Lax) Keppra No Notes: Memoria 02-05 Same as l 22:43: Keppra Mix Clay 00 with 100 mL NS, LR or [...] Daily Medica l MG tablet 00 (1800). Goodman lisinopriL 2014-09 Yes 40mg Take [address] (PRINIVIL,Z 2-21 by mouth Luke s ESTRIL) 40 00:00: Daily Medica l MG tablet (1800). Goodman lisinopriL 2014-09 Yes 40mg Take [address] (PRINIVIL,Z 2-21 by mouth Luke s ESTRIL) 40 00:00: Daily Medica l MG tablet (1799). Goodman lisinopriL 2014-09 Yes 40mg Take [address] (PRINIVIL,Z 2-21 by mouth Luke s ESTRIL) 40 00:00: Daily Medica l MG tablet 00 (1800). Goodman lisinopriL 2014-09 Yes 40mg Take [address] (PRINIVIL,Z 2-21 by mouth Luke s ESTRIL) 40 00:00: Daily Medica l MG tablet 00 (1800). Goodman lisinopriL 2014-09 Yes 40mg Take [address] (PRINIVIL,Z 2-21 by mouth Luke s ESTRIL) 40 00:00: Daily Medica l MG tablet 00 (1799). Goodman lisinopriL 2014-09 Yes 40mg Take [address] (PRINIVIL,Z 2-21 by mouth Luke s ESTRIL) 40 00:00: Daily Medica l MG tablet 00 (1800). Goodman lisinopriL 2014-09 Yes 40mg Take [address] (PRINIVIL,Z 2-21 by mouth Luke s ESTRIL) 40 00:00: Daily Medica l MG tablet 00 (1800). [place] lisinopriL 2014-09 Yes 40mg Take [address] (PRINIVIL,Z 2-21 by mouth Luke s ESTRIL) 40 00:00: Daily Medica l MG tablet 00 (1800). Goodman lisinopriL 2014-09 Yes 40mg Take [address] (PRINIVIL,Z 2-21 by mouth Luke s ESTRIL) 40 00:00: Daily Medica l MG tablet 00 (1800). [place] lisinopriL 2014-09 Yes 40mg Take [address] (PRINIVIL,Z 2-21 by mouth Luke s ESTRIL) 40 00:00: Daily Medica l MG tablet 00 (1800). [place] lisinopriL 2014-09 Yes 40mg Take [address] (PRINIVIL,Z 2-21 by mouth Luke s ESTRIL) 40 00:00: Daily Medica l MG tablet 00 (1800). Goodman lisinopriL 2014-09 Yes 40mg Take [address] (PRINIVIL,Z 2-21 by mouth Luke s ESTRIL) 40 00:00: Daily Medica l MG tablet 00 (1800). Goodman PROTONIX 40 Yes [id number] 1 tab PO Univers MG ORAL 4-01 daily ity of TBEC 00:00: [place] [facility] PROTONIX 40 Yes [id number] 1 tab PO Univers MG ORAL 4-01 daily ity of TBEC 00:00: [place] [facility] PROTONIX 40 Yes [id number] 1 tab PO Univers MG ORAL 4-01 daily ity of TBEC 00:00: [place] [facility] PROTONIX 40 Yes [id number] 1 tab PO Univers MG ORAL 4-01 daily ity of TBEC 00:00: [place] [facility] PROTONIX 40 Yes [id number] 1 tab PO Univers MG ORAL 4-01 daily ity of TBEC 00:00: [place] 00 [facility] PROTONIX 40 2008-0 Yes [id number] 1 tab PO Univers MG ORAL 4-01 daily ity of TBEC 00:00: [place] 00 [facility] PROTONIX 40 2008-0 2021- No [id number] 1 tab PO Univers MG ORAL 4-01 10-15 daily ity of TBEC 00:00: 00:00 [place] 00 :00 [facility] PROTONIX 40 2008-0 2021- No [id number] 1 tab PO Univers MG ORAL 4-01 10-15 daily ity of TBEC 00:00: 00:00 [place] 00 :00 [facility] ENALAPRIL 2009-0 Yes [id number] 1 tab po Univers MALEATE 20 1-15 BID ity of MG ORAL TAB 00:00: [place] 00 [facility] ENALAPRIL 2008-0 Yes [id number] 1 tab po Univers MALEATE 20 1-15 BID ity of MG ORAL TAB 00:00: [place] 00 [facility] ENALAPRIL 2009-0 Yes [id number] 1 tab po Univers MALEATE 20 1-15 BID ity of MG ORAL TAB 00:00: [place] 00 [facility] ENALAPRIL 2009-0 Yes [id number] 1 tab po Univers MALEATE 20 1-15 BID ity of MG ORAL TAB 00:00: [place] 00 [facility] ENALAPRIL 2009-0 Yes [id number] 1 tab po Univers MALEATE 20 1-15 BID ity of MG ORAL TAB 00:00: [place] 00 [facility] ENALAPRIL 2009-0 Yes [id number] 1 tab po Univers MALEATE 20 1-15 BID ity of MG ORAL TAB 00:00: [place] 00 [facility] ENALAPRIL 2008-0 2022- No [id number] 1 tab po Univers MALEATE 20 1-15 10-15 BID ity of MG ORAL TAB 00:00: 00:00 [place] 00 :00 [facility] ENALAPRIL 2008-0 2022- No [id number] 1 tab po Univers MALEATE 20 1-15 10-15 BID ity of MG ORAL TAB 00:00: 00:00 [place] 00 :00 [facility] HYDROCHLORO 2008-1 Yes [id number] take 1 po Univers THIAZIDE 25 0-30 daily ity of MG ORAL TAB 00:00: [place] 00 [facility] HYDROCHLORO 2008-1 Yes [id number] take 1 po Univers THIAZIDE 25 0-30 daily ity of MG ORAL TAB 00:00: [place] [facility] HYDROCHLORO 2007-09 Yes [id number] take 1 po Univers THIAZIDE 25 0-30 daily ity of MG ORAL TAB 00:00: [place] [facility] HYDROCHLORO 2007-09 Yes [id number] take 1 po Univers THIAZIDE 25 0-30 daily ity of MG ORAL TAB 00:00: [place] [facility] HYDROCHLORO 2007-09 Yes [id number] take 1 po Univers THIAZIDE 25 0-30 daily ity of MG ORAL TAB 00:00: [place] [facility] HYDROCHLORO 2007-09 Yes [id number] take 1 po Univers THIAZIDE 25 0-30 daily ity of MG ORAL TAB 00:00: [place] [facility] HYDROCHLORO 2007-09- No [id number] take 1 po Univers THIAZIDE 25 0-30 10-15 daily ity of MG ORAL TAB 00:00: 00:00 [place] 00 : [facility] HYDROCHLORO 2007-09- No [id number] take 1 po Univers THIAZIDE 25 0-30 10-15 daily ity of MG ORAL TAB 00:00: 00:00 [place] 00 :00 [facility] GLIPIZIDE 5 Yes [...] it y of 00:00: 00:00 tab qpm [place] 00 :00 [facility] ATENOLOL Yes [id number] one tab po Univers 100 MG ORAL 8-27 daily ity of TAB 00:00: [place] [facility] NORCO Yes 1 tab po Univers 7.5-325 MG 8-27 TID ity of ORAL TAB 00:00: Medical [facility] AMITRIPTYLI Yes 2 tabs QHS Univers NE 50 MG 8-27 ity of ORAL TAB 00:00: Medical Branch METFORMIN Yes [id number] 1 tab PO Univers 850 MG ORAL 8-27 TID ity of TAB 00:00: Medical Branch CLONIDINE Yes [id number] take 1 po Univers 0.2 MG ORAL 8-27 qid for 1 ity of TAB 00:00: week, then [place] 00 tid for 1 Medical week, then Branch bid and prn thereafter PRAVASTATIN Yes [id number] take 1 po Univers 40 MG ORAL 8-27 qhs ity of TAB 00:00: [place] [facility] ATENOLOL Yes [id number] one tab po Univers 100 MG ORAL 8-27 daily ity of TAB 00:00: [place] [facility] NORCO Yes 1 tab po Univers 7.5-325 MG 8-27 TID ity of ORAL TAB 00:00: [place] [facility] AMITRIPTYLI Yes 2 tabs QHS Univers NE 50 MG 8-27 ity of ORAL TAB 00:00: [place] [facility] METFORMIN 2007- Yes [id number] 1 tab PO Univers 850 MG ORAL 8-27 TID ity of TAB 00:00: [place] [facility] CLONIDINE Yes [id number] take 1 po Univers 0.2 MG ORAL 8-27 qid for 1 ity of TAB 00:00: week, then [place] 00 tid for 1 Medical week, then Branch bid and prn thereafter PRAVASTATIN Yes [id number] take 1 po Univers 40 MG ORAL 8-27 qhs ity of TAB 00:00: [place] [facility] ATENOLOL Yes [id number] one tab po Univers 100 MG ORAL 8-27 daily ity of TAB 00:00: Medical [facility] NORCO Yes 1 tab po Univers 7.5-325 MG 8-27 TID ity of ORAL TAB 00:00: Medical Branch AMITRIPTYLI Yes 2 tabs QHS Univers NE 50 MG 8-27 ity of ORAL TAB 00:00: Medical Branch METFORMIN Yes [id number] 1 tab PO Univers 850 MG ORAL 8-27 TID ity of TAB 00:00: Medical Branch CLONIDINE Yes [id number] take 1 po Univers 0.2 MG ORAL 8-27 qid for 1 ity of TAB 00:00: week, then [place] 00 tid for 1 Medical week, then Branch bid and prn thereafter PRAVASTATIN Yes [id number] take 1 po Univers 40 MG ORAL 8-27 qhs ity of TAB 00:00: Medical Branch ATENOLOL Yes [id number] one tab po Univers 100 MG ORAL 8-27 daily ity of TAB 00:00: Medical Branch NORCO Yes 1 tab po Univers 7.5-325 MG 8-27 TID ity of ORAL TAB 00:00: Medical Branch AMITRIPTYLI Yes 2 tabs QHS Univers NE 50 MG 8-27 ity of ORAL TAB 00:00: Medical Branch METFORMIN Yes [id number] 1 tab PO Univers 850 MG ORAL 8-27 TID ity of TAB 00:00: Medical Branch CLONIDINE Yes [id number] take 1 po Univers 0.2 MG ORAL 8-27 qid for 1 ity of TAB 00:00: week, then [place] 00 tid for 1 Medical week, then Branch bid and prn thereafter PRAVASTATIN Yes [id number] take 1 po Univers 40 MG ORAL 8-27 qhs ity of TAB 00:00: Medical Branch ATENOLOL Yes [id number] one tab po Univers 100 MG ORAL 8-27 daily ity of TAB 00:00: Medical Branch NORCO 2008-0 Yes 1 tab po Univers 7.5-325 MG 8-27 TID ity of ORAL TAB 00:00: [place] [facility] AMITRIPTYLI Yes 2 tabs QHS Univers NE 50 MG 8-27 ity of ORAL TAB 00:00: [place] [facility] METFORMIN 0 Yes [id number] 1 tab PO Univers 850 MG ORAL 8-27 TID ity of TAB 00:00: [place] 00 [facility] CLONIDINE 0 Yes [id number] take 1 po Univers 0.2 MG ORAL 8-27 qid for 1 ity of TAB 00:00: week, then [place] 00 tid for 1 Medical week, then Branch bid and prn thereafter PRAVASTATIN Yes [id number] take 1 po Univers 40 MG ORAL 8-27 qhs ity of TAB 00:00: [place] [facility] ATENOLOL Yes [id number] one tab po Univers 100 MG ORAL 8-27 daily ity of TAB 00:00: [place] 00 [facility] NORCO Yes 1 tab po Univers 7.5-325 MG 8-27 TID ity of ORAL TAB 00:00: [place] [facility] AMITRIPTYLI Yes 2 tabs QHS Univers NE 50 MG 8-27 ity of ORAL TAB 00:00: [place] 00 [facility] METFORMIN 0 Yes [id number] 1 tab PO Univers 850 MG ORAL 8-27 TID ity of TAB 00:00: [place] 00 [facility] CLONIDINE 0 Yes [id number] take 1 po Univers 0.2 MG ORAL 8-27 qid for 1 ity of TAB 00:00: week, then [place] 00 tid for 1 Medical week, then Branch bid and prn thereafter PRAVASTATIN 0 Yes [id number] take 1 po Univers 40 MG ORAL 8-27 qhs ity of TAB 00:00: [place] 00 [facility] ATENOLOL 2021- No [id number] one tab po Univers 100 MG ORAL [...] 00 :00 Medical Branch METFORMIN 2007-2021- No [id number] 1 tab PO Univers 850 MG ORAL 8-27 10-15 TID ity of TAB 00:00: 00:00 [place] 00 :00 [facility] CLONIDINE 2021- No [id number] take 1 po Univers 0.2 MG ORAL 8-27 10-15 qid for 1 it y of TAB 00:00: 00:00 week, then [place] 00 :00 tid for 1 Medical week, then Branch bid and prn thereafter PRAVASTATIN 2021- No [id number] take 1 po Univers 40 MG ORAL 8-27 10-15 qhs ity of TAB 00:00: 00:00 [place] 00 :00 [facility] ATENOLOL 2021- No [id number] one tab po Univers 100 MG ORAL 8-27 10-15 daily ity of TAB 00:00: 00:00 [place] 00 :00 [facility] NORCO 2021- No 1 tab po Univers 7.5-325 MG 8-27 10-15 TID ity of ORAL TAB 00:00: 00:00 [place] 00 :00 [facility] AMITRIPTYLI 2021- No 2 tabs QHS Univers NE 50 MG 8-27 10-15 ity of ORAL TAB 00:00: 00:00 [place] 00 :00 [facility] METFORMIN 2021- No [id number] 1 tab PO Univers 850 MG ORAL 8-27 10-15 TID ity of TAB 00:00: 00:00 [place] 00 :00 [facility] CLONIDINE 2021- No [id number] take 1 po Univers 0.2 MG ORAL 8-27 10-15 qid for 1 it y of TAB 00:00: 00:00 week, then [place] 00 :00 tid for 1 Medical week, then Branch bid and prn thereafter PRAVASTATIN 2021- No [id number] take 1 po Univers 40 MG ORAL 8-27 10-15 qhs ity of TAB 00:00: 00:00 [place] 00 :00 [facility] CLONIDINE Yes [id number] 1 tab tid Univers 0.3 MG ORAL 4-30 and prn ity o f TAB 00:00: [place] 00 [facility] CLONIDINE 2007-0 Yes [id number] 1 tab tid Univers 0.3 MG ORAL 4-30 and prn ity o f TAB 00:00: [place] [facility] CLONIDINE 2007-0 Yes [id number] 1 tab tid Univers 0.3 MG ORAL 4-30 and prn ity o f TAB 00:00: [place] [facility] CLONIDINE 2007-0 Yes [id number] 1 tab tid Univers 0.3 MG ORAL 4-30 and prn ity o f TAB 00:00: [place] [facility] CLONIDINE 2007-0 Yes [id number] 1 tab tid Univers 0.3 MG ORAL 4-30 and prn ity o f TAB 00:00: [place] [facility] CLONIDINE 2007-0 Yes [id number] 1 tab tid Univers 0.3 MG ORAL 4-30 and prn ity o f TAB 00:00: [place] [facility] CLONIDINE 2007-0 2021- No [id number] tab tid [facility] 0.3 MG ORAL 4-30 10-15 and prn ity of TAB 00:00: 00:00 [facility] 00 :[facility] CLONIDINE 2007-0 2021- No [id number] tab tid [facility] 0.3 MG ORAL 4-30 10-15 and prn ity of TAB 00:00: 00:00 [facility] 00 :[facility] ASPIRIN 325 2006- Yes [id number] tab U nivers MG ORAL TAB 0-04 daily ity of 00:00: [facility] ASPIRIN 325 2006- Yes [id number] tab U nivers MG ORAL TAB 0-04 daily ity of 00:00: [facility] ASPIRIN 325 2006- Yes [id number] tab U nivers MG ORAL TAB 0-04 daily ity of 00:00: [facility] ASPIRIN 325 2006- Yes [id number] 1 tab U nivers MG ORAL TAB 0-04 daily ity of 00:00: [facility] ASPIRIN 325 2006- Yes [id number] 1 tab U nivers MG ORAL TAB 0-04 daily ity of 00:00: [facility] ASPIRIN 325 2006- Yes [id number] 1 tab U nivers MG ORAL TAB 0-04 daily ity of 00:00: [facility] ASPIRIN 325 2006- 2022- No [id number] 1 tab Univers MG ORAL TAB 0-04 10-15 daily ity of 00:00: 00:00 [place] 00 :00 [facility] ASPIRIN 325 2007- 2022- No [id number] 1 tab Univers MG ORAL TAB 0-04 10-15 daily ity of 00:00: 00:00 [place] 00 :00 [facility] Branch Immunizations Ordered Filled Immunization Date Status Comments Sour e Immunization Name Name Influenza Virus 2007-06-20 Completed Universit y of Vaccine 00:00:00 [facility] Influenza Virus 2007-06-20 Completed Universit y of Vaccine 00:00:00 [facility] Influenza Virus 2007-06-20 Completed Universit y of Vaccine 00:00:00 [facility] Influenza Virus 2007-06-20 Completed Universit y of Vaccine 00:00:00 [facility] Influenza Virus 2007-06-20 Completed Universit y of Vaccine 00:00:00 [facility] Influenza Virus 2007-06-20 Completed Universit y of Vaccine 00:00:00 [facility] Influenza Virus 2007-06-20 Completed Universit y of Vaccine 00:00:00 [facility] Influenza Virus 2007-06-20 Completed Universit y of Vaccine 00:00:00 [facility] Influenza Virus 2007-06-20 Completed Universit y of Vaccine 00:00:00 [facility] Influenza Virus 2007-06-20 Completed Universit y of Vaccine 00:00:00 [facility] Influenza Virus 2007-06-20 Completed Universit y of Vaccine 00:00:00 [facility] Influenza Virus 2007-06-20 Completed Universit y of Vaccine 00:00:00 [facility] Influenza Virus 2007-06-20 Completed Universit y of Vaccine 00:00:00 [facility] Influenza Virus 2007-06-20 Completed Universit y of Vaccine 00:00:00 [facility] Influenza Virus 2007-06-20 Completed Universit y of Vaccine 00:00:00 [facility] Influenza Virus 2007-06-20 Completed Universit y of Vaccine 00:00:00 [facility] Influenza Virus 2007-06-20 Completed Universit y of Vaccine 00:00:00 [facility] Influenza Virus 2007-06-20 Completed Universit y of Vaccine 00:00:00 [facility] Influenza Virus 2007-06-20 Completed Universit y of Vaccine 00:00:00 [facility] Influenza Virus 2007-06-20 Completed Universit y of Vaccine 00:00:00 [facility] Influenza Virus 2007-06-20 Completed Universit y of Vaccine 00:00:00 [facility] Influenza Virus 2007-06-20 Completed Universit y of Vaccine 00:00:00 [facility] Influenza Virus 2007-06-20 Completed Universit y of Vaccine 00:00:00 [facility] Influenza Virus 2007-06-20 Completed Universit y of Vaccine 00:00:00 [facility] Influenza Virus 2007-06-20 Completed Universit y of Vaccine 00:00:00 [facility] Influenza Virus 2007-06-20 Completed Universit y of Vaccine 00:00:00 [facility] Influenza Virus 2006-07-26 Completed Universit y of Vaccine 00:00:00 [facility] Influenza Virus 2006-07-26 Completed Universit y of Vaccine 00:00:00 [facility] Influenza Virus 2006-07-26 Completed Universit y of Vaccine 00:00:00 [facility] Influenza Virus 2006-07-26 Completed Universit y of Vaccine 00:00:00 [facility] Influenza Virus 2006-07-26 Completed Universit y of Vaccine 00:00:00 [facility] Influenza Virus 2006-07-26 Completed Universit y of Vaccine 00:00:00 [facility] Influenza Virus 2006-07-26 Completed Universit y of Vaccine 00:00:00 [facility] Influenza Virus 2006-07-26 Completed Universit y of Vaccine 00:00:00 [facility] Influenza Virus 2006-07-26 Completed Universit y of Vaccine 00:00:00 [facility] Influenza Virus 2006-07-26 Completed Universit y of Vaccine 00:00:00 [facility] Influenza Virus 2006-07-26 Completed Universit y of Vaccine 00:00:00 [facility] Influenza Virus 2006-07-26 Completed Universit y of Vaccine 00:00:00 [facility] Influenza Virus 2006-07-26 Completed Universit y of Vaccine 00:00:00 [facility] Influenza Virus 2006-07-26 Completed Universit y of Vaccine 00:00:00 [facility] Influenza Virus 2006-07-26 Completed Universit y of Vaccine 00:00:00 [facility] Influenza Virus 2006-07-26 Completed Universit y of Vaccine 00:00:00 [facility] Influenza Virus 2006-07-26 Completed Universit y of Vaccine 00:00:00 [facility] Influenza Virus 2006-07-26 Completed Universit y of Vaccine 00:00:00 [facility] Influenza Virus 2006-07-26 Completed Universit y of Vaccine 00:00:00 [facility] Influenza Virus 2006-07-26 Completed Universit y of Vaccine 00:00:00 [facility] Influenza Virus 2006-07-26 Completed Universit y of Vaccine 00:00:00 [facility] Influenza Virus 2006-07-26 Completed Universit y of Vaccine 00:00:00 [facility] Influenza Virus 2006-07-26 Completed Universit y of Vaccine 00:00:00 [facility] Influenza Virus 2006-07-26 Completed Universit y of Vaccine 00:00:00 [facility] Influenza Virus 2006-07-26 Completed Universit y of Vaccine 00:00:00 [facility] Influenza Virus 2006-07-26 Completed Universit y of Vaccine 00:00:00 [facility] Vital Signs Vital Name Observation Time Observation Value Comments Source WEIGHT 2020-03-24 76.658 kg 00:00:00 Systolic blood 2022-11-01 129 mm[Hg] University of pressure 17:28:00 [facility] Diastolic blood 2022-11-01 80 mm[Hg] University o f pressure 17:28:00 [facility] Heart rate 2022-11-01 77 /min University of 17:28:00 [facility] Body temperature 2022-11-01 36.67 Sindhu University of 17:28:00 [facility] Respiratory rate 2022-11-01 20 /min University of 17:28:00 [facility] Oxygen saturation 2022-11-01 94 /min [facility] in Arterial blood 17:28:00 [facility] by Pulse oximetry [place] Body weight 2022-10-31 77.1 kg University of 14:00:00 [facility] BMI 2022-10-31 29.18 kg/m2 University of 14:00:00 [facility] Systolic blood 2022-10-08 139 mm[Hg] University of pressure 15:29:00 [facility] Diastolic blood 2022-10-08 85 mm[Hg] University o f pressure 15:29:00 [facility] Heart rate 2022-10-08 72 /min University of 15:29:00 [facility] Body temperature 2022-10-08 35.56 Sindhu University of 15:29:00 [facility] Respiratory rate 2022-10-08 22 /min University of 15:29:00 [facility] Oxygen saturation 2022-10-08 96 /min University of in Arterial blood 15:29:00 [facility] joyce by Pulse oximetry Branch Body height 2022-10-06 162.6 cm University of 22:03:00 [facility] Body weight 2022-10-06 78.926 kg University of 22:03:00 [facility] BMI 2022-10-06 29.87 kg/m2 University of 22:03:00 [facility] Body weight 2022-09-30 70.308 kg University of 17:27:00 [facility] BMI 2022-09-30 29.87 kg/m2 University of 17:27:00 [facility] Systolic blood 2022-08-03 137 mm[Hg] University of pressure 19:29:00 [facility] Diastolic blood 2022-08-03 68 mm[Hg] University o f pressure 19:29:00 [facility] Heart rate 2022-08-03 75 /min University of 19:29:00 [facility] Body temperature 2022-08-03 36.11 Sindhu University of 19:29:00 [facility] Respiratory rate 2022-08-03 16 /min University of 19:29:00 [facility] Body height 2022-08-03 162.6 cm University of 19:29:00 [facility] Body weight 2022-08-03 70.308 kg University of 19:29:00 [facility] BMI 2022-08-03 26.61 kg/m2 University of 19:29:00 [facility] Systolic blood 2022-06-25 150 mm[Hg] University of pressure 16:28:00 [facility] Diastolic blood 2022-06-25 92 mm[Hg] University o f pressure 16:28:00 [facility] Heart rate 2022-06-25 102 /min University of 16:28:00 [facility] Body temperature 2022-06-25 36.5 Sindhu University of 16:28:00 [facility] Respiratory rate 2022-06-25 20 /min University of 16:28:00 [facility] Oxygen saturation 2022-06-25 91 /min University of in Arterial blood 16:28:00 [facility] joyce by Pulse oximetry Branch Body weight 2022-06-21 71.215 kg University of 15:26:00 [facility] BMI 2022-06-21 26.13 kg/m2 University of 15:26:00 [facility] Body height 2022-06-20 165.1 cm University of 18:31:00 [facility] Systolic blood 2022-06-24 184 mm[Hg] University of pressure 12:28:00 beena/goodvioleta [place] [facility] bedside Diastolic blood 2022-06-24 105 mm[Hg] dr Hernandez o f pressure 12:28:00 beena/yury [place] [facility] [place] bedside Heart rate 2022-06-24 79 /min University of 12:28:00 [facility] Body temperature 2022-06-24 36.5 Sindhu University 12:28:00 [facility] Respiratory rate 2022-06-24 20 /min University of 12:28:00 [facility] Oxygen saturation 2022-06-24 95 /min [place] of in Arterial blood 12:28:00 [place] [facility] by Pulse oximetry [place] Body weight 2022-06-21 71.215 kg University 15:26:00 [facility] BMI 2022-06-21 26.13 kg/m2 University of 15:26:00 [facility] Body height 2022-06-20 165.1 cm University of 18:31:00 [facility] Systolic blood 2021-05-11 156 mm[Hg] University of pressure 01:25:00 [facility] Diastolic blood 2021-05-11 77 mm[Hg] [place] o f pressure 01:25:00 [facility] Heart rate 2021-05-11 65 /min University of 01:25:00 [facility] Body temperature 2021-05-11 36.94 Sindhu University of 01:25:00 [facility] Respiratory rate 2021-05-11 18 /min University of 01:25:00 [facility] Oxygen saturation 2021-05-11 96 /min University of in Arterial blood 01:25:00 [place] [facility] by Pulse oximetry [place] Body weight 2021-05-10 68.04 kg University of 12:50:00 [facility] WEIGHT 2020-03-24 76.658 kg 00:00:00 Systolic (mm Hg) 2018-02-27 [facility] He rmann 18:06:00 Diastolic (mm Hg) 2018-02-27 Elma [...] 04:55:00 Temperature Oral 2018-02-13 97 F Elma romano (F) 04:55:00 Weight 2018-02-06 [facility] [...] 2022-11-11 Doctor Unassigned, Universit y of 06:01:00 [place] [facility] EXTERNAL PROVIDER RECORDS 2022-11-10 Doctor Unassigned, Uni versity of 06:01:00 [place] [facility] COVID-19 (ID NOW RAPID 2022-11-01 Gilbert Winston y of TESTING) 19:31:00 [facility] POCT GLUCOSE (AUTOMATED) 2022-11-01 Jarvis Milligan Univers ity of 17:45:00 [facility] POCT GLUCOSE (AUTOMATED) 2022-11-01 Jarvis Milligan Univers ity of 13:54:00 [facility] POCT GLUCOSE (AUTOMATED) 2022-11-01 Jarvis Milligan Univers ity of 01:54:00 [facility] POCT GLUCOSE (AUTOMATED) 2022-10-31 Jarvis Milligan Univers ity of 22:16:00 [place] [facility] Branch POCT GLUCOSE (AUTOMATED) 2022-10-31 Jarvis Milligan Univers ity of 17:38:00 [facility] Branch POCT GLUCOSE (AUTOMATED) 2022-10-31 Jarvis Milligan Univers ity of 14:35:00 [facility] Branch POCT GLUCOSE (AUTOMATED) 2022-10-31 Jarvis Milligan Univers ity of 03:26:00 [facility] POCT GLUCOSE (AUTOMATED) 2022-10-30 Jarvis Milligan Univers ity of 17:29:00 [facility] Branch POCT GLUCOSE (AUTOMATED) 2022-10-30 Jarvis Milligan Univers ity of 13:45:00 [facility] CBC WITHOUT DIFF 2022-10-30 [facility] 10:[facility]00 [facility] POCT GLUCOSE (AUTOMATED) 2022-10-30 Jarvis Milligan Univers ity of 01:54:00 [facility] POCT GLUCOSE (AUTOMATED) 2022-10-29 Jarvis Milligan Univers ity of 22:49:00 [facility] POCT GLUCOSE (AUTOMATED) 2022-10-29 Jarvis Milligan Univers ity of 17:47:00 [facility] POCT GLUCOSE (AUTOMATED) 2022-10-29 Jarvis Milligan Univers ity of 13:45:00 [facility] POCT GLUCOSE (AUTOMATED) 2022-10-29 Jarvis Milligan Univers ity of 02:03:00 [facility] POCT GLUCOSE (AUTOMATED) 2022-10-28 Jarvis Milligan Univers ity of 23:28:00 [facility] POCT GLUCOSE (AUTOMATED) 2022-10-28 Jarvis Milligan Univers ity of 18:24:00 [facility] POCT GLUCOSE (AUTOMATED) 2022-10-28 Jarvis Milligan Univers ity of 14:36:00 [facility] BASIC METABOLIC PANEL (NA, K, 2022-10-28 [facility] of CL, CO2, GLUCOSE, BUN, 10:14:00 [facility] ical CREATININE, CA) Branch CBC WITH DIFF 2022-10-28 [facility] of 10:14:00 [place] [facility] POCT GLUCOSE (AUTOMATED) 2022-10-28 Jarvis Milligan Univers ity of 02:04:00 [facility] POCT GLUCOSE (AUTOMATED) 2022-10-27 Jarvis Milligan Univers ity of 22:35:00 [facility] POCT GLUCOSE (AUTOMATED) 2022-10-27 Jarvis Milligan Univers ity of 17:33:00 [facility] POCT GLUCOSE (AUTOMATED) 2022-10-27 Jarvis Milligan Univers ity of 14:41:00 [facility] POCT GLUCOSE (AUTOMATED) 2022-10-27 Chel, Jarvis Univers ity of 03:31:00 [facility] POCT GLUCOSE (AUTOMATED) 2022-10-26 Raul Rosen Univer sity of 22:30:00 [facility] POCT GLUCOSE (AUTOMATED) 2022-10-26 Raul Rosen Univer sity of 17:32:00 [facility] POCT GLUCOSE (AUTOMATED) 2022-10-26 Raul Rosen Univer sity of 13:26:00 [facility] BASIC METABOLIC PANEL (NA, K, 2022-10-26 [facility] of CL, CO2, GLUCOSE, BUN, 11:36:00 [facility] ica CREATININE, CA) Branch CBC WITH DIFF 2022-10-26 [facility] of 11:36:00 [facility] MAGNESIUM 2022-10-26 [facility] of 02:30:00 [facility] BASIC METABOLIC PANEL (NA, K, 2022-10-26 [facility] of CL, CO2, GLUCOSE, BUN, 02:30:00 [facility] ical CREATININE, CA) Branch POCT GLUCOSE (AUTOMATED) 2022-10-26 Raul Rosen Univer sity of 01:48:00 [facility] POCT GLUCOSE (AUTOMATED) 2022-10-25 Raul Rosen Univer sity of 22:14:00 [facility] POCT GLUCOSE (AUTOMATED) 2022-10-25 Raul Rosen Univer sity of 17:33:00 [facility] ROSIO AURIS SURVEILLANCE BY 2022-10-25 Aleksandr Borja iversity of PCR (INFECTION CONTROL 15:47:00 [facility] ical PURPOSES) Branch POCT GLUCOSE (AUTOMATED) 2022-10-25 Raul Rosen Univer sity of 14:25:00 [facility] POCT GLUCOSE (AUTOMATED) 2022-10-25 Raul Rosen Univer sity of 13:36:00 [facility] CT ANGIOGRAM HEAD 2022-10-25 Liza Quiroz [place] of 10:18:30 [facility] CT HEAD WO CONTRAST 2022-10-25 Nini Mendenhall [place] of 10:18:30 [facility] CT ANGIOGRAM NECK 2022-10-25 [facility] 10:18:30 [facility] BASIC METABOLIC PANEL (NA, K, 2022-10-25 Nini Mendenhall [facility] of CL, CO2, GLUCOSE, BUN, 09:42:00 [facility] ical CREATININE, [place]) Branch CBC WITH DIFF 2022-10-25 Nini Mendenhall [place] of 09:42:00 [facility] PROTHROMBIN TIME / INR 2022-10-25 [facility] of 09:42:00 [facility] ACTIVATED PARTIAL THRMPLAS 2022-10-25 Abdirashid [facility] ersity of ANUSHA 09:42:00 [facility] FIBRINOGEN 2022-10-25 Abdirashid Counts Include [address] [facility] of 09:42:00 [facility] XR ELBOW <3 VW LEFT 2022-10-25 [facility] o f 02:12:03 [facility] XR SHOULDER <2 VW LEFT 2022-10-25 Liza Quiroz [facility] y of 02:12:03 [facility] XR WRIST 3+ VW LEFT 2022-10-25 [facility] o f 02:12:03 [facility] CT HEAD WO CONTRAST 2022-10-25 [facility] 01:45:02 [facility] URINE CULTURE 2022-10-25 [facility] 00:42:00 [facility] HB ECG ROUTINE & RHYTHM STRIP 2022-10-25 Liza Quiroz iversity of 00:38:10 [facility] URINALYSIS 2022-10-25 [facility] 00:32:00 [facility] LIPASE 2022-10-25 [facility] of 00:12:00 [facility] MAGNESIUM 2022-10-25 [facility] 00:12:00 [facility] TROPONIN I 2022-10-25 [facility] 00:12:00 [facility] COMP. METABOLIC PANEL ([id number]) 2022-10-25 Liza Quiroz iversity of 00:12:00 [facility] CBC WITH DIFF 2022-10-25 [facility] of 00:12:00 [facility] PROTHROMBIN TIME / INR 2022-10-25 [facility] of 00:12:00 [facility] N-TERMINAL PRO-BNP 2022-10-25 [facility] 00:12[facility]00 [facility] EMERGENCY DEPARTMENT 2022-10-24 Doctor Unassigned, Universi ty of DOCUMENTS 06:01:00 [place] [facility] COVID-19 (ID NOW RAPID 2022-10-08 Adelaide Grossman [facility] y of TESTING) 14:58:00 [facility] COVID-19 (ID NOW RAPID 2022-10-08 Adelaide Grossman [facility] y of TESTING) 14:58:00 [facility] LAB ONLY COVID INTERPRETATION 2022-10-08 Adelaide Grossman Un iversity of 14:58:00 [facility] POCT GLUCOSE (AUTOMATED) 2022-10-08 [facility], Univers ity of 14:55:00 [facility] POCT GLUCOSE (AUTOMATED) 2022-10-08 [facility], Univers ity of 14:55:00 [facility] POCT GLUCOSE (AUTOMATED) 2022-10-08 [facility], Univers ity of 03:51:00 [facility] POCT GLUCOSE (AUTOMATED) 2022-10-08 [facility], Univers ity of 03:51:00 [facility] POCT GLUCOSE (AUTOMATED) 2022-10-08 [facility], Univers ity of 03:10:00 [facility] POCT GLUCOSE (AUTOMATED) 2022-10-08 [facility], Univers ity of 03:10:00 [facility] COVID-19 (ID NOW RAPID 2022-10-07 Adelaide Grossman [facility] y of TESTING) 20:42:00 [facility] LAB ONLY COVID INTERPRETATION 2022-10-07 Adelaide Grossman Un iversity of 20:42:00 [facility] COVID-19 (ID NOW RAPID 2022-10-07 Adelaide Grossman [facility] y of TESTING) 20:42:00 [facility] LAB ONLY COVID INTERPRETATION 2022-10-07 Adelaide Grossman Un iversity of 20:42:00 [facility] HB ECG ROUTINE & RHYTHM STRIP 2022-10-07 [place], Un iversity of 14:09:51 [facility] HB ECG ROUTINE & RHYTHM STRIP 2022-10-07 [place], Un iversity of 14:09:51 [facility] MAGNESIUM 2022-10-07 Chauncey [facility] of 11:05:00 [facility] BASIC METABOLIC PANEL (NA, K, 2022-10-07 Inga Grossmana Un iversity of CL, CO2, GLUCOSE, BUN, 11:05:00 [place] [facility] CREATININE, [place]) Branch CBC WITH DIFF 2022-10-07 Schwertner [facility] of 11:05:00 [facility] MAGNESIUM 2022-10-07 Schwertner [facility] of 11:05:00 [facility] BASIC METABOLIC PANEL (NA, K, 2022-10-07 Inga Grossmana Un iversity of CL, CO2, GLUCOSE, BUN, 11:05:00 [place] [facility] CREATININE, [place]) Branch CBC WITH DIFF 2022-10-07 [facility] of 11:05:00 [facility] CT HEAD WO CONTRAST 2022-10-06 [facility] o f 21:38:43 [facility] CT HEAD WO CONTRAST 2022-10-06 [facility] o f 21:38:43 [facility] XR CHEST 1 VW 2022-10-06 [facility] [address] of 18:00:00 [facility] XR CHEST 1 VW 2022-10-06 [facility] 18:00:00 [facility] C[facility] 15:30:17 [facility] ELECTROPHYSIOLOGY PROCEDURE 2022-10-06 [facility] ersity of 15:30:17 [facility] ELECTROPHYSIOLOGY PROCEDURE 2022-10-06 [facility] ersity of 15:30:17 [facility] CARDIAC CATHETERIZATION 2022[facility]10-06 [facility] 15:30:17 [facility] ELECTROPHYSIOLOGY PROCEDURE 2022-10-06 [facility] 15:30:17 [facility] ELECTROPHYSIOLOGY PROCEDURE 2022-10-06 [facility] [facility] ersity of 15:30:17 [facility] CBC WITH DIFF 2022-10-03 Bryan [place] of 17:03:00 [facility] PROTHROMBIN TIME / INR 2022-10-03 Bryan, Universit y of 17:03:00 [facility] HB ECG ROUTINE & RHYTHM STRIP 2022-08-03 Bryan iversity of 19:36:45 [facility] ASSIGNMENT OF BENEFITS 2022-08-03 Doctor Unassigned, Univer sity of 17:21:11 [place] [facility] EXTERNAL PROVIDER RECORDS 2022-07-07 Doctor Unassigned, Uni versity of 05:01:00 [place] [facility] POCT GLUCOSE (AUTOMATED) 2022-06-25 [facility] ersity of 17:11:00 [facility] POCT GLUCOSE (AUTOMATED) 2022-06-25 [facility] ersity of 17:11:00 [facility] POCT GLUCOSE (AUTOMATED) 2022-06-25 [facility] ersity of 14:07:00 [facility] POCT GLUCOSE (AUTOMATED) 2022-06-25 [facility] ersity of 14:07:00 [facility] MAGNESIUM 2022-06-25 [facility] of 10:22:00 [facility] BASIC METABOLIC PANEL (NA, K, 2022-06-25 Marlys [place] Un iversity of CL, CO2, GLUCOSE, BUN, 10:22:00 [place] [facility] CREATININE, [place]) Branch CBC WITHOUT DIFF 2022-06-25 Gita [facility] of 10:22:00 [facility] MAGNESIUM 2022-06-25 Gita [facility] of 10:22:00 [facility] BASIC METABOLIC PANEL (NA, K, 2022-06-25 Michelle Pel[place] Un iversity of CL, CO2, GLUCOSE, BUN, 10:22:00 [place] [facility] CREATININE, [place]) Branch CBC WITHOUT DIFF 2022-06-25 Gita [facility] of 10:22:00 [facility] POCT GLUCOSE (AUTOMATED) 2022-06-25 [facility] ersity of 01:29:00 [facility] POCT GLUCOSE (AUTOMATED) 2022-06-25 [facility] ersity of 01:29:00 [facility] POCT GLUCOSE (AUTOMATED) 2022-06-24 [facility] ersity of 22:20:00 [facility] POCT GLUCOSE (AUTOMATED) 2022-06-24 [facility], [facility] ersity of 22:20:00 [facility] POCT GLUCOSE (AUTOMATED) 2022-06-24 [facility] ersity of 18:06:00 [facility] POCT GLUCOSE (AUTOMATED) 2022-06-24 [facility] ersity of 18:06:00 [facility] CBC WITHOUT DIFF 2022-06-24 [facility] of 17:27:00 [facility] CBC WITHOUT DIFF 2022-06-24 [facility] of 17:27:00 [facility] MAGNESIUM 2022-06-24 Gita [facility] of 17:26:00 [facility] BASIC METABOLIC PANEL (NA, K, 2022-06-24 Gita [place] Un iversity of CL, CO2, GLUCOSE, BUN, 17:26:00 [place] [facility] ical CREATININE, CA) Branch MAGNESIUM 2022-06-24 Gita [facility] of 17:26:00 [facility] BASIC METABOLIC PANEL (NA, K, 2022-06-24 [facility] CL, CO2, GLUCOSE, BUN, 17:26:00 [place] [facility] CREATININE, CA) Branch ELECTROPHYSIOLOGY PROCEDURE 2022-06-24 [facility] 13:36:26 [facility]ED[facility] 2022-06-24 [facility] ersity of 13:36:26 [facility] POCT GLUCOSE (AUTOMATED) 2022-06-24 [facility] ersity of 13:01:00 [facility] POCT GLUCOSE (AUTOMATED) 2022-06-24 [facility]ity of 13:01:00 [facility] POCT GLUCOSE (AUTOMATED) 2022-06-24 [place] Uni versity of 03:58:00 [facility] POCT GLUCOSE (AUTOMATED) 2022-06-24 [place], [place] Uni versity of 03:58:00 [facility] URINALYSIS 2022-06-23 edwina [facility] of 22:59:00 [facility] URINALYSIS 2022-06-23 [facility] of 22:59:00 [facility] POCT GLUCOSE (AUTOMATED) 2022-06-23 [place], [place] Uni versity of 22:38:00 [facility] POCT GLUCOSE (AUTOMATED) 2022-06-23 [place], [place] Uni versity of 22:38:00 [facility] POCT GLUCOSE (AUTOMATED) 2022-06-23 [place], [place] Uni versity of 17:07:00 [facility] POCT GLUCOSE (AUTOMATED) 2022-06-23 [place], [place] Uni versity of 17:07:00 [facility] POCT GLUCOSE (AUTOMATED) 2022-06-23 [place], [place] Uni versity of 12:31:00 [facility] POCT GLUCOSE (AUTOMATED) 2022-06-23 [place], [place] Uni versity of 12:31:00 [facility] MAGNESIUM 2022-06-23 [facility] of 09:22:00 [facility] BASIC METABOLIC PANEL (NA, K, 2022-06-23 Marlys [place] Un iversity of CL, CO2, GLUCOSE, BUN, 09:22:00 [facility] ical CREATININE, CA) Branch CBC WITHOUT DIFF 2022-06-23 Michelle Pelayo [place] of 09:22:00 [facility] MAGNESIUM 2022-06-23 [facility] of 09:22:00 [facility] BASIC METABOLIC PANEL (NA, K, 2022-06-23 Michelle Pelayo Un iversity of CL, CO2, GLUCOSE, BUN, 09:22:00 [facility] ical CREATININE, CA) Branch CBC WITHOUT DIFF 2022-06-23 [facility] of 09:22:00 [facility] HB ECG ROUTINE & RHYTHM STRIP 2022-06-23 [facility] of 04:21:59 [facility] HB ECG ROUTINE & RHYTHM STRIP 2022-06-23 [facility] of 04:21:59 [facility] POCT GLUCOSE (AUTOMATED) 2022-06-23 [place] Uni versity of 02:30:00 [facility] POCT GLUCOSE (AUTOMATED) 2022-06-23 [place], [place] Uni versity of 02:30:00 [facility] PHOSPHORUS 2022-06-22 [facility] of 22:43:00 [facility] PHOSPHORUS 2022-06-22 [facility] of 22:43:00 [facility] METANEPHRINES, PLASMA 2022-06-22 [facility] of 22:42:00 [facility] POCT GLUCOSE (AUTOMATED) 2022-06-22 [place], [place] Uni versity of 21:59:00 [facility] POCT GLUCOSE (AUTOMATED) 2022-06-22 [place], [place] Uni versity of 21:59:00 [facility] POCT GLUCOSE (AUTOMATED) 2022-06-22 [place], [place] Uni versity of 16:52:00 [facility] POCT GLUCOSE (AUTOMATED) 2022-06-22 [place], [place] Uni versity of 16:52:00 [facility] POCT GLUCOSE (AUTOMATED) 2022-06-22 [place], [place] Uni versity of 13:13:00 [facility] POCT GLUCOSE (AUTOMATED) 2022-06-22 [place], [place] Uni versity of 13:13:00 [facility] MAGNESIUM 2022-06-22 Patricia [facility] of 10:07:00 [facility] FERRITIN SERUM 2022-06-22 [facility] of 10:07:00 [facility] VITAMIN B12, LEVEL 2022-06-22 [facility] of 10:07:00 [facility] BASIC METABOLIC PANEL (NA, K, 2022-06-22 Bin Gomez Un iversity of CL, CO2, GLUCOSE, BUN, 10:07:00 [place] [facility] CREATININE, [place]) Branch IRON PANEL 2022-06-22 Bin Gomez of 10:07:00 [facility] CBC WITH DIFF 2022-06-22 [facility] 10:07:00 [facility] MAGNESIUM 2022-06-22 [facility] of 10:07:00 [facility] FERRITIN SERUM 2022-06-22 Patricia [facility] of 10:07:00 [facility] VITAMIN B12, LEVEL 2022-06-22 [facility] of 10:07:00 [facility] BASIC METABOLIC PANEL (NA, K, 2022-06-22 Bin Gomez Un iversity of CL, CO2, GLUCOSE, BUN, 10:07:00 [place] [facility] CREATININE, CA) Branch IRON PANEL 2022-06-22 [facility] of 10:07:00 [facility] CBC WITH DIFF 2022-06-22 Patricia [facility] of 10:07:00 [facility] POCT GLUCOSE (AUTOMATED) 2022-06-22 Ca Meléndez Uni versity of 00:54:00 [facility] POCT GLUCOSE (AUTOMATED) 2022-06-22 Ca Meléndez Uni versity of 00:54:00 [facility] POCT GLUCOSE (AUTOMATED) 2022-06-21 Srinath Cohen Univers ity of 21:48:00 [facility] POCT GLUCOSE (AUTOMATED) 2022-06-21 Srinath Cohen Univers ity of 21:48:00 [facility] HB ECG ROUTINE & RHYTHM STRIP 2022-06-21 Bin Gomez Un iversity of 19:13:25 [facility] HB ECG ROUTINE & RHYTHM STRIP 2022-06-21 Bin Gomez Un iversity of 19:13:25 [facility] TRANSTHORACIC ECHO (TTE) 2022-06-21 Bin Gomez Univers ity of COMPLETE W/ CONTRAST 16:58:45 [facility] TRANSTHORACIC ECHO (TTE) 2022-06-21 Bin Gomez Univers ity of COMPLETE W/ CONTRAST 16:58:45 [facility] POCT GLUCOSE (AUTOMATED) 2022-06-21 Srinath Cohen ity of 16:35:00 [facility] POCT GLUCOSE (AUTOMATED) 2022-06-21 Srinath Cohen [facility] ity of 16:35:00 [facility] THYROID STIMULATING HORMONE 2022-06-21 Bin Gomez [facility] ersity of 12:08:00 [facility] COMP. METABOLIC PANEL ([id number]) 2022-06-21 Anastasiya Tapia [facility] of 12:08:00 [facility] CBC WITH DIFF 2022-06-21 Anastasiya Tapia [facility] of 12:08:00 [facility] GLYCOSYLATED HEMOGLOBIN (A1C) 2022-06-21 [facility] iversity of 12:08:00 [facility] THYROID STIMULATING HORMONE 2022-06-21 [facility] ersity of 12:08:00 [facility] COMP. METABOLIC PANEL ([id number]) 2022-06-21 Anastasiya Tapia [facility] of 12:08:00 [facility] CBC WITH DIFF 2022-06-21 Anastasiya Tapia [facility] of 12:08:00 [facility] GLYCOSYLATED HEMOGLOBIN (A1C) 2022-06-21 [facility] iversity of 12:08:00 [facility] COVID-19 (ID NOW RAPID 2022-06-21 Anastasiya Tapia [facility] sity of TESTING) 07:07:00 [facility] LAB ONLY COVID INTERPRETATION 2022-06-21 Anastasiya Tapia [place] of 07:07:00 [facility] COVID-19 (ID NOW RAPID 2022-06-21 Anastasiya Tapia [facility] sity of TESTING) 07:07:00 [facility] LAB ONLY COVID INTERPRETATION 2022-06-21 Anastasiya Tapia [place] of 07:07:00 [facility] LACTIC ACID WHOLE BLOOD 2022-06-21 Srinath Cohen [facility] ty of 04:05:00 [facility] LACTIC ACID WHOLE BLOOD 2022-06-21 Srinath Cohen [facility] [place] ty of 04:05:00 [facility] CT HEAD WO CONTRAST 2022-06-21 Singer [facility] o f 00:42:20 [facility] CT HEAD WO CONTRAST 2022-06-21 Cohen, [facility] o f 00:42:20 [facility] ELECTROENCEPHALOGRAM 2022-06-21 [facility] of 00:00:00 [facility] ELECTROENCEPHALOGRAM 2022-06-21 [facility] of 00:00:00 [facility] LACTIC ACID WHOLE BLOOD 2022-06-20 Singer [facility] ty of 23:59:00 [facility] LACTIC ACID WHOLE BLOOD 2022-06-20 Singer [facility] ty of 23:59:00 [facility] CT ANGIOGRAM ABDOMEN/PELVIS 2022-06-20 Singer [facility] ersity of 20:21:56 [facility] CT ANGIOGRAM ABDOMEN/PELVIS 2022-06-20 , [facility] ersity of 20:21:56 [facility] URINALYSIS 2022-06-20 Singer [facility] of 19:04:00 [facility] URINE CULTURE 2022-06-20 Singer [facility] of 19:04:00 [facility] URINALYSIS 2022-06-20 Singer [facility] of 19:04:00 [facility] URINE CULTURE 2022-06-20 Singer [facility] of 19:04:00 [facility] XR CHEST 1 VW 2022-06-20 Singer [facility] of 18:50:20 [facility] XR CHEST 1 VW 2022-06-20 Singer [facility] of 18:50:20 [facility] BLOOD CULTURE SCREEN 2022-06-20 Singer [facility] of 18:46:00 [facility] BLOOD CULTURE SCREEN 2022-06-20 Singer [facility] of 18:46:00 [facility] BLOOD CULTURE SCREEN 2022-06-20 Singer [facility] of 18:39:00 [facility] TROPONIN I 2022-06-20 Singer [facility] of 18:39:00 [facility] COMP. METABOLIC PANEL ([id number]) 2022-06-20 Srinath Cohen iversity of 18:39:00 [facility] CBC WITH DIFF 2022-06-20 Singer [facility] of 18:39:00 [facility] BLOOD CULTURE SCREEN 2022-06-20 Singer [facility] of 18:39:00 [facility] TROPONIN I 2022-06-20 Singer [facility] of 18:39:00 [facility] COMP. METABOLIC PANEL ([id number]) 2022-06-20 Srinath Cohen iversity of 18:39:00 [facility] CBC WITH DIFF 2022-06-20 Singer [facility] of 18:39:00 [facility] EKG-12 LEAD 2022-06-20 Singer [facility] of 18:38:36 [facility] EKG-12 LEAD 2022-06-20 Singer [facility] of 18:38:36 [facility] LACTIC ACID WHOLE BLOOD 2022-06-20 Singer Srinath Universi ty of 18:38:00 [facility] LACTIC ACID WHOLE BLOOD 2022-06-20 Cohen, [facility] Universi ty of 18:38:00 [facility] EMERGENCY DEPARTMENT 2022-06-20 Doctor Unassigned, Universi ty of DOCUMENTS 05:01:00 [place] [facility] HOSPITAL ADMISSION 2022-06-20 Doctor Unassigned, University of 05:01:00 [place] [facility] ASSIGNMENT OF BENEFITS 2021-05-07 [facility] 21:31:03 [place] [facility] Hysterectomy [facility] Plan of Care Planned Activity Planned [...] INFLUENZA VACCINE (Season Ended)] Future Scheduled 2023-05-[address] [facility] 00:00:00 (Season Ended) [code = Medic al Center Influenza Vaccine (Season Ended)] Future Scheduled 2022-09-11 DEPRESSION SCREENING [...] 00:00:00 [facility] (procedure[facility] [code = 69758238] Future Scheduled 2020-09-[address] [facility] 00:[facility]00 [facility] (procedure) [code = 24901222] Future Scheduled 2020-09-[address] [facility] 00:00:00 [facility] (procedure) [code = 55386001] Future Scheduled 2020-09-[address] [facility] 00:00:00 [facility] (procedure) [code = 58352894] Future Scheduled 2020-09-[address] [facility] 00:00:00 [facility] (procedure) [code = 25103229] Future Scheduled 2020-09-[address] [facility] 00:00:00 [facility] (procedure) [code = 52128856] Future Scheduled 2020-09-[address] [facility] 00:00:00 [facility] (procedure) [code = 03511455] Future Scheduled 2020-09-[address] [facility] 00:00:00 [facility] (procedure) [code = 49320383] Future Scheduled 2020-09-[address] [facility] 00:00:00 [facility] (procedure) [code = 45532328] Future Scheduled 2020-09-[address] [facility] 00:00:00 [facility] (procedure) [code = 19844812] Future Scheduled 2020-09-[address] [facility] 00:00:00 [facility] (procedure) [code = 54779584] Future Scheduled 2020-09-[address] [facility] 00:00:00 [facility] (procedure) [code = 21859769] Future Scheduled 2020-09-[address] [facility] 00:00:00 [facility] (procedure) [code = 88417531] Future Scheduled 2020-09-[address] [...] 00:00:00 (1 of 1 - Medical Center [id number] PCV13) [code = PNEUMOCOCCAL 65+ YRS (1 of 1 - [id number] PCV13)] Future Scheduled 2002 PNEUMOCOCCAL 65+ YRS [facility] 00:00:00 (1 of 1 - Medical Center [id number] PCV13) [code = PNEUMOCOCCAL 65+ YRS (1 of 1 - AXAY27_Edyjomy PCV13)] Future Scheduled 1999-11-11 MEDICARE ANNUAL [facility] [...] 00:00:00 protein (procedure) Medical Center [code = 666426980] Future Scheduled 1947 DIABETIC EYE EXAM [facility] 00:00:00 [code = DIABETIC EYE Medical Center EXAM] Future Scheduled 1947 Urine screening for [facility] 00:00:00 protein (procedure) Medical Center [code = 004844406] Future Scheduled 1947 DIABETIC EYE EXAM [facility] 00:00:00 [code = DIABETIC EYE Medical Center EXAM] Future Scheduled 1947 Urine screening for [facility] 00:00:00 protein (procedure) Medical Center [code = 214343257] Future Scheduled 1947 DIABETIC EYE EXAM [facility] 00:00:00 [code = DIABETIC EYE Medical Center EXAM] Future Scheduled 1947 Urine screening for [facility] 00:00:00 protein (procedure) Medical Center [code = 183276975] Future Scheduled 1947 DIABETIC EYE EXAM [facility] 00:00:00 [code = DIABETIC EYE Medical Center EXAM] Future Scheduled 1947 Urine screening for [facility] 00:00:00 protein (procedure) Medical Center [code = 946937754] Future Scheduled 1947 DIABETIC EYE EXAM [facility] 00:00:00 [code = DIABETIC EYE Medical Center EXAM] Future Scheduled 1947 Urine screening for [facility] 00:00:00 protein (procedure) Medical Center [code = 497001288] Future Scheduled 1947 DIABETIC EYE EXAM [facility] 00:00:00 [code = DIABETIC EYE Medical Center EXAM] Future Scheduled 1947 Urine screening for [facility] 00:00:00 protein (procedure) Medical Center [code = 547349348] Future Scheduled 1947 DIABETIC EYE EXAM [facility] 00:00:00 [code = DIABETIC EYE Medical Center EXAM] Future Scheduled 1947 Urine screening for [facility] 00:00:00 protein (procedure) Medical Center [code = 033426490] Future Scheduled 1947 DIABETIC EYE EXAM [facility] 00:00:00 [code = DIABETIC EYE Medical Center EXAM] Future Scheduled 1947 Urine screening for [facility] 00:00:00 protein (procedure) Medical Center [code = 889111744] Future Scheduled 1947 DIABETIC EYE EXAM [facility] 00:00:00 [code = DIABETIC EYE Medical Center EXAM] Future Scheduled 1947 Urine screening for [facility] 00:00:00 protein (procedure) Medical Center [code = 069270636] Future Scheduled 1947 DIABETIC EYE EXAM [facility] 00:00:00 [code = DIABETIC EYE Medical Center EXAM] Future Scheduled 1947 Urine screening for [facility] 00:00:00 protein (procedure) Medical Center [code = 221671611] Future Scheduled 1947 DIABETIC EYE EXAM [facility] 00:00:00 [code = DIABETIC EYE Medical Center EXAM] Future Scheduled 1947 Urine screening for [facility] 00:00:00 protein (procedure) Medical Center [code = 590525658] Future Scheduled 1947 DIABETIC EYE EXAM [facility] 00:00:00 [code = DIABETIC EYE Medical Center EXAM] Future Scheduled 1947 Urine screening for [facility] 00:00:00 protein (procedure) Medical Center [code = 767666384] Future Scheduled 1943 PNEUMOCOCCAL 65+ YRS [facility] [...] DXA [facility] 00:00:00 SCAN] [facility] Future Scheduled 1937 DXA SCAN [code = DXA [facility] 00:00:00 SCAN] [facility] Future Scheduled 1937 DXA SCAN [code = DXA [facility] 00:00:00 SCAN] [facility] Future Scheduled 1937 DXA SCAN [code = DXA [facility] 00:00:00 SCAN] [facility] Future Scheduled 1937 DXA SCAN [code = DXA [facility] 00:00:00 SCAN] [facility] Future Scheduled 1937 DXA SCAN [code = DXA [facility] 00:00:00 SCAN] [facility] Future Scheduled 1937 DXA SCAN [code = DXA [facility] 00:00:00 SCAN] [facility] Encounters Start End Encounter Admission Attending Care Care Encounter Source Date/Time Date/Time Type Type Clinicians Facility Department ID 2022-10-12 Outpatient [facility] [id number] [place] 11:19:01 [id number] [facility] 2020-03-24 [id number] [facility] 23:52:00 JUAQUIN Med 2023-03-09 2023-03-09 Outpatient R HARINI BETANCOURT [facility] [id number] Univers 10:30:00 10:30:00 HARINI BETANCOURT [facility] 2022-12-22 2022-12-22 Outpatient Jordan WINSTON [facility] [id number] Univers 00:00:00 00:00:00 GILBERT [facility] 2022-11-11 2022-11-11 [facility] ELIAS Hylton [id number] Univers 07:05:00 23:59:00 En[id number] Shawn as [id number] [address] 2022-11-11 2022-11-11 [facility] [id number] Univers 00:00:00 23:59:00 INEZ [facility] 2022-11-11 2022-11-11 Orders Doctor TRENT [id number] Univers 00:00:00 00:00:00 Only Unassigned, RAYA [id number] ity of [place] [facility] [id number] Shawn as [id number] [facility] [address] 2022-11-10 2022-11-10 Orders Doctor TRENT [id number] Univers 00:00:00 00:00:00 Only Unassigned, RAYA 350.1.13.10 ity of [place] [facility] 4.2.7.2.686 Shawn as [phone] [facility] [address] 2022-10-24 2022-11-01 Inpatient X [facility] [id number] Univers 17:16:00 17:33:00 JARVIS ity [facility] 2022-10-24 2022-11-01 [facility] Liza Quiroz 1.2.840.11 4 [id number] Univers 17:16:00 17:33:00 Encounter Raul Rosen 350.1.13.10 ity of [facility] 4.2.7.2.686 [place] [phone] [facility] [address] 2022-10-10 2022-10-13 Inpatient E APRYL, [facility] 7501 [facility] 13:24:00 18:20:00 CASSIUS 2022-10-11 2022-10-11 Telephone Bryan [facility] 1.2.840.114 [id number] Univers 00:00:00 00:00:00 [facility] 350.1.13.10 ity of [place] [id number] [facility] [address] OFFICE BUILDING 2022-10-06 2022-10-08 Outpatient R [facility] [id number] Univers 06:20:00 13:18:00 DAYAMI ity [facility] 2022-10-06 2022-10-08 [facility] Maria Elena Betancourt VIKTORIA 1 .2.840.114 [id number] Univers 06:20:00 13:18:00 Encounter Dayami Love RAYA 350.1.1 3.10 ity of [facility] 4.2.7.2.686 Shawn as [phone] [facility] [address] 2022-10-06 2022-10-06 Surgery VIKTORIA Betancourt 1.2.840.114 [id number] Univers 08:00:00 09:45:00 [place] RAYA 350.1.13.10 ity of [facility] 4.2.7.2.686 Shawn as [phone] [facility] [address] 2022-10-03 2022-10-03 Assembler Erector Criss, Mark Lab Main [facility] 1.2.8 40.114 [id number] Univers 10:30:00 10:45:00 Visit Harini Betancourt 350.1 .13.10 ity of [place] [phone] [facility] [address] BUILDING 2022-10-03 2022-10-03 Outpatient R HARINI BETANCOURT [facility] [id number] Univers 10:30:00 10:30:00 HARINI BETANCOURT ity [facility] 2022-09-13 2022-09-13 Telephone VIKTORIA Betancourt 1.2.840.114 [id number] Univers 00:00:00 00:00:00 [place]ock[place] RAYA 350.1.13.10 ity of [facility] 4.2.7.2.686 Shawn as [phone] [address] 2022-08-08 2022-08-08 Telephone VIKTORIA Betancourt 1.2.840.114 [id number] Univers 00:00:00 00:00:00 [place] RAYA 350.1.13.10 ity of [facility] 4.2.7.2.686 Shawn as [phone] [facility] [address] 2022-08-03 2022-08-03 Hospital VIKTORIA Betancourt 1.2.840.114 [id number] Univers 11:00:00 23:59:00 Encounter Chockalinanika RAYA 350.1.13.10 ity of [facility] 4.2.7.2.686 [place] as [phone] [facility] [address] 2022-08-03 2022-08-03 Office SHARIF Betancourt 1.2.840.114 [id number] Univers 13:00:00 13:15:00 Visit Maria Elena [facility] 350.1.13.10 ity of [facility] [place].2.[place] [phone] [facility] [address] 2022-08-03 2022-08-03 Outpatient R HARINI BETANCOURT [facility] [id number] Univers 13:00:00 13:00:00 HARINI BETANCOURT ity [facility] 2022-08-03 2022-08-03 Orders Doctor TRENT 1.2.840.114 [id number] Univers 00:00:00 00:00:00 Only Unassigned, RAYA 350.1.13.10 ity of [facility] 4.2.7.2.686 Shawn as [phone] [facility] [address] 2022-07-14 2022-07-14 Outpatient R HARINI BETANCOURT [facility] [id number] Univers 16:30:12 23:59:00 HARINI BETANCOURT ity [facility] 2022-07-14 2022-07-14 Hospital VIKTORIA Betancourt 1Meka2.840.114 [id number] Univers 16:30:12 23:59:00 Encounter Maria Elena DOS SANTOS 350.1.13.10 ity of [facility] 4.2.7.2.686 Shawn as [id number] [facility] [address] 2022-07-14 2022-07-14 Telephone VIKTORIA Betancourt 1.2.840.114 [id number] Univers 00:00:00 00:00:00 [place] RAAY 350.1.13.10 ity of [facility] 4.2.7.2.686 Shawn as [phone] [facility] [address] 2022-07-07 2022-07-07 Orders Doctor TRENT 1.2.840.114 [id number] Univers 00:00:00 00:00:00 Only Unassigned, RAYA 350.1.13.10 ity of [place] [facility] 4.2.7.2.686 Shawn as [phone] [facility] [address] 2022-06-27 2022-06-27 Transition ROSE Macias 1.2.840.114 [id number] Univers 00:00:00 00:00:00 of Care Jamil Reeder SHEPHERD 350.1.13.10 ity of [place] [phone] [facility] [address] 2022-06-20 2022-06-25 Inpatient X ALVERTO [facility] [id number] Univers 13:17:00 13:00:00 [facility]22-[facility]-25 Hospital Srinath Cohen 1.2.840.1 14 [id number] Univers 13:17:00 13:00:00 Encounter Acacia Del Toro 350.1.13. 10 ity of [facility] 4.2.7.2.686 [place] [phone] [facility] [address] 2022-06-24 2022-06-24 Surgery VIKTORIA Betancourt 1.2.840.114 [id number] Univers 08:35:00 09:20:00 Maria Elena SOY 350.1.13.10 ity of [facility] 4.2.7.2.686 Shawn as [phone] [facility] [address] 2021-05-10 2021-05-10 Nurse Therapy, Kevin Byrd [facility] 1.2. 840.114 [id number] Univers 19:27:33 20:27:33 Visit Unknown, Attending Health 350.1.13.10 ity of [place] 4.2.7.2.686 Shawn as Terrell?Blea [phone] Hi zahraa [address] Medical Office Building 2021-05-10 2021-05-10 Outpatient R UNKNOWN, [facility] [id number] Univers 19:30:00 19:30:00 ATTENDING ity of [facility] 2021-05-09 2021-05-09 Telephone Jemalkymberly TRENT 1.2.656.298 [id number] Univers 00:00:00 00:00:00 Gessica P RAYA 350.1.13.10 ity of [facility] 4.2.7.2.686 Shawn as [phone] [facility] [address] 2021-05-07 2021-05-07 Laboratory Only, Ang Db Test [facility] 1.2.8 40.114 [id number] Univers 17:11:44 17:31:44 Only Pavan [facility] 350.1.13.10 ity of [place] 4.2.7.2.686 Shawn as Terrell?Blea [phone] [address] Medical Office Building 2021-05-07 2021-05-07 Outpatient R PAVAN [facility] [id number] Univers 17:15:00 17:15:00 [facility] 2021-05-07 2021-05-07 Outpatient R PAVAN [facility] [id number] Univers 16:20:00 16:20:00 [facility] 2021-05-07 2021-05-07 Orders Doctor TRENT 1.2.840.114 [id number] Univers 00:00:00 00:00:00 Only Unassigned, RAYA 350.1.13.10 ity of [place] [facility] 4.2.7.2.686 Shawn as [phone] [facility] [address] 2018-04-03 2018-04-05 Phone nullFlavo MNA [id number] Memoria 20:41:00 04:59:59 Message r Neurosurger 07 l y [facility] 2018-03-28 2018-03-30 Phone nullFlavo MNA [id number] Memoria 15:42:00 04:59:59 Message r Neurosurger 06 l y [facility] 2018-03-26 2018-03-28 Phone nullFlavo MNA [id number] Memoria 16:02:00 04:59:59 Message r Neurosurger 05 l y [facility] 2018-03-22 2018-03-22 Ambulatory nullFlavo MNA [id number] Memoria 17:15:00 17:15:00 Pre-Reg r Neurosurger 01 l y [facility] 2018-03-19 2018-03-21 Phone nullFlavo MNA [id number] Memoria 14:29:00 04:59:59 Message r Neurosurger 04 l y [facility] 2018-03-15 2018-03-17 Phone nullFlavo MNA [id number] 55 Memoria 21:01:00 04:59:59 Message r Neurosurger 03 l y [facility] 2018-03-07 2018-03-09 Phone nullFlavo MNA [id number] Memoria 16:18:00 04:59:59 Message r Neurosurger 02 l y [facility] 2018-03-01 2018-03-03 Phone nullFlavo MNA [id number] 55 Memoria 16:12:00 04:59:59 Message r Neurosurger 01 l y [facility] 2018-03-01 2018-03-03 Phone nullFlavo MNA [id number] 55 Memoria 14:43:00 04:59:59 Message r Neurosurger 00 l y [facility] 2018-03-01 2018-03-01 Ambulatory nullFlavo MNA [id number] Memoria 16:15:00 16:15:00 Pre-Reg r Neurosurger 00 l y [facility] 2018-02-19 2018-02-27 Inpatient nullFlavo [facility] [id number] [id number] Memoria 07:05:00 21:19:00 [facility] 00 [facility] 2018-02-05 2018-02-13 Inpatient nullFlavo [facility] [id number] Memoria 22:15:00 16:22:00 [facility] 48 [facility] Results Test Description Test Time Test Comments Results Result Comments Source POCT GLUCOSE (AUTOMATED) 2022-11-01 17:45:48 Test Item Value Reference Range Interpretation Comme nts POCT GLU (test code = 4683059312) 377 mg/dL 70-110 H Lab Interpretation (test code = 13876-8) Abnormal [facility] GLUCOSE (AUTOMATED)2022-11-01 14:03:36 Test Item Value Reference Range Interpretation Comments POCT GLU (test code = 5851458840) 218 mg/dL 70-110 H Lab Interpretation (test code = Abnormal 47688-8) [facility] GLUCOSE (AUTOMATED)2022-11-01 02:05:30 Test Item Value Reference Range Interpretation Comments POCT GLU (test code = 8367868175) 195 mg/dL 70-110 H Lab Interpretation (test code = Abnormal 95512-5) [facility] GLUCOSE (AUTOMATED)2022-10-31 22:18:04 Test Item Value Reference Range Interpretation Comments POCT GLU (test code = 8536584278) 200 mg/dL 70-110 H Lab Interpretation (test code = Abnormal 19580-2) [facility] GLUCOSE (AUTOMATED)2022-10-31 17:40:15 Test Item Value Reference Range Interpretation Comments POCT GLU (test code = 0040944791) 231 mg/dL 70-110 H Lab Interpretation (test code = Abnormal 43294-4) [facility] GLUCOSE (AUTOMATED)2022-10-31 14:36:10 Test Item Value Reference Range Interpretation Comments POCT GLU (test code = 4720526664) 199 mg/dL 70-110 H Lab Interpretation (test code = Abnormal 87947-9) [facility] GLUCOSE (AUTOMATED)2022-10-31 03:28:00 Test Item Value Reference Range Interpretation Comments POCT GLU (test code = 7497416869) 198 mg/dL 70-110 H Lab Interpretation (test code = Abnormal 44018-4) [facility] GLUCOSE (AUTOMATED)2022-10-30 17:40:57 Test Item Value Reference Range Interpretation Comments POCT GLU (test code = 2583034583) 275 mg/dL 70-110 H Lab Interpretation (test code = Abnormal 57142-0) [facility] GLUCOSE (AUTOMATED)2022-10-30 13:56:28 Test Item Value Reference Range Interpretation Comments POCT GLU (test code = 0873553973) 191 mg/dL 70-110 H Lab Interpretation (test code = Abnormal 02182-4) [facility] WITHOUT [id number] 11:10:09 Test Item Value Reference Range Interpretation Comments WBC (test code = 6690-2) 7.95 See_Comment [A utomated message] The system [employer] generated this result transmit timur reference range : 4.30 - 11.10 10*3/?L. The reference range was not used to interpret this result as normal/abnormal . RBC (test code = 789-8) 3.22 See_Comment L [Au tomated message] The system [employer] generated this result transmit timur reference range [...] 277 See_Comment [Au tomated message] The system [employer] generated this result transmit timur reference range : 166 - 358 10*3/?L. The reference range was not used to interpret this result as normal/abnormal . MPV (test code = 8.4 fL 9.5-12.9 L 52948-5) RDW-CV (test code = 13.3 % 12.0-15.5 788-0) RDW-SD (test code = 41.0 fL 39.0-49.9 78375-3) NRBC x10^3 (test code = See_Comment [Au tomated message] 9589903858) The system [employer] generated this result transmit timur reference range : 10*3/?L. The reference range was not used to interpret this result as normal/abnormal . NRBC/100 WBC (test code 0.0 See_Comment [Au tomated message] = 5058381844) The system [employer] generated this result transmit timur reference range : 0.0 - 10.0 /100 WBC s. The reference r fernando was not used to interpret this result as normal/abnormal . IPF % (test code = 1242806949) Lab Interpretation (test Abnormal code = 32295-1) [facility] GLUCOSE (AUTOMATED)2022-10-30 02:05:21 Test Item Value Reference Range Interpretation Comments POCT GLU (test code = 1383176705) 256 mg/dL 70-110 H Lab Interpretation (test code = Abnormal 68848-4) [facility] GLUCOSE (AUTOMATED)2022-10-29 22:52:51 Test Item Value Reference Range Interpretation Comments POCT GLU (test code = 8990754965) 193 mg/dL 70-110 H Lab Interpretation (test code = Abnormal 04715-0) [facility] GLUCOSE (AUTOMATED)2022-10-29 18:00:29 Test Item Value Reference Range Interpretation Comments POCT GLU (test code = 5380196786) 328 mg/dL 70-110 H Lab Interpretation (test code = Abnormal 44609-2) [facility] GLUCOSE (AUTOMATED)2022-10-29 14:03:49 Test Item Value Reference Range Interpretation Comments POCT GLU (test code = 6662532051) 214 mg/dL 70-110 H Lab Interpretation (test code = Abnormal 35457-7) [facility] GLUCOSE (AUTOMATED)2022-10-29 02:04:31 Test Item Value Reference Range Interpretation Comments POCT GLU (test code = 240 mg/dL 70-110 H Notifi ed Provider [id number]) Lab Interpretation (test Abnormal code = 61812-0) [facility] GLUCOSE (AUTOMATED)2022-10-28 23:29:03 Test Item Value Reference Range Interpretation Comments POCT GLU (test code = 5430249736) 227 mg/dL 70-110 H Lab Interpretation (test code = Abnormal 01890-0) [facility] GLUCOSE (AUTOMATED)2022-10-28 18:26:14 Test Item Value Reference Range Interpretation Comments POCT GLU (test code = 9007334553) 241 mg/dL 70-110 H Lab Interpretation (test code = Abnormal 16135-1) [facility] GLUCOSE (AUTOMATED)2022-10-28 14:37:46 Test Item Value Reference Range Interpretation Comments POCT GLU (test code = 4678125409) 190 mg/dL 70-110 H Lab Interpretation (test code = Abnormal 98743-0) [facility] METABOLIC PANEL (NA, K, CL, CO2, GLUCOSE, BUN, CREATININE, CA)2022-10-28 11:33:48 Test Item Value Reference Range Interpretation Comments NA (test code = 128 mmol/L 135-145 L 1573308635) K (test code = 4.1 mmol/L 3.5-5.0 9337975853) CL (test code = 99 mmol/L 98-108 4887769921) CO2 TOTAL (test code = 24 mmol/L 23-31 8321880641) AGAP (test code = 5 2-16 6773410536) BUN (test code = 15 mg/dL 7-23 1871862933) GLUCOSE (test code = 169 mg/dL 70-110 H 2799589270) CREATININE (test code = 0.55 mg/dL 0.50-1.04 2858914625) CALCIUM (test code = 8.1 mg/dL 8.6-10.6 L 3900276761) eGFR (test code = 105.0 mL/min/1.73m2 1494138223) WINDY (test code = WINDY) Association of [...] tests). Lab Interpretation Abnormal (test code = 14042-2) [facility] WITH [id number] 10:48:02 Test Item Value Reference Range Interpretation [...] RDW-SD (test code = 40.9 fL 39.0-49.9 13483-2) RDW-CV (test code = 13.6 % 12.0-15.5 788-0) PLT (test code = 287 See_Comment [Automated 777-3) message] The sy stem which generated this result transmitted reference range : 166 - 358 10*3/ ?L. The reference r fernando was not used to interpret this result as normal/abnormal . MPV (test code = 9.3 fL 9.5-12.9 L 44800-3) NRBC/100 WBC (test 0.0 See_Comment [Automat ed code = 0959396387) message] The system which generated this result transmitted reference range : 0.0 - 10.0 /100 WBCs. The refer ence range was not u sed to interpret th is result as normal/abnormal . NRBC x10^3 (test code See_Comment [Auto mated = 0043436840) message] The s ystem which generated this result transmitted reference range : 10*3/?L. The reference range was not used to interpret this result as normal/abnormal . GRAN MAT (NEUT) % 55.1 % (test code = 770-8) IMM GRAN % (test code 0.50 % = 5705650880) LYMPH % (test code = 31.2 % 736-9) MONO % (test code = 11.6 % 5905-5) EOS % (test code = 1.4 % 713-8) BASO % (test code = 0.2 % 706-2) GRAN MAT x10^3(ANC) 3.46 10*3/uL 1.88-7.09 (test code = 8996180069) IMM GRAN x10^3 (test 0.03 10*3/uL 0.00-0.06 code = 7276075504) LYMPH x10^3 (test code 1.96 10*3/uL 1.32-3.29 = 731-0) MONO x10^3 (test code 0.73 10*3/uL 0.33-0.92 = 742-7) EOS x10^3 (test code = 0.09 10*3/uL 0.03-0.39 711-2) BASO x10^3 (test code 0.01-0.07 = 704-7) Lab Interpretation Abnormal (test code = 86480-3) [facility] GLUCOSE (AUTOMATED)2022-10-28 02:11:22 Test Item Value Reference Range Interpretation Comments POCT GLU (test code = 3764546516) 268 mg/dL 70-110 H Lab Interpretation (test code = Abnormal 92141-6) [facility] GLUCOSE (AUTOMATED)2022-10-27 22:40:13 Test Item Value Reference Range Interpretation Comments POCT GLU (test code = 8617880185) 151 mg/dL 70-110 H Lab Interpretation (test code = Abnormal 08336-2) [facility] GLUCOSE (AUTOMATED)2022-10-27 17:35:16 Test Item Value Reference Range Interpretation Comments POCT GLU (test code = 5181235453) 239 mg/dL 70-110 H Lab Interpretation (test code = Abnormal 38087-7) [facility] GLUCOSE (AUTOMATED)2022-10-27 14:42:18 Test Item Value Reference Range Interpretation Comments POCT GLU (test code = 0874552909) 221 mg/dL 70-110 H Lab Interpretation (test code = Abnormal 37342-5) [facility] 03:32:29 Test Item Value Reference Range Interpretation Comments POCT GLU (test code = 258 mg/dL 70-110 H Notifi ed Provider [id number]) Lab Interpretation (test Abnormal code = 07173-7) [facility] 22:32:49 Test Item Value Reference Range Interpretation Comments POCT GLU (test code = 176 mg/dL 70-110 H Notifi ed Provider [id number]) Lab Interpretation (test Abnormal code = 86397-9) [facility]22-[facility]26 17:34:42 Test Item Value Reference Range Interpretation Comments POCT GLU (test code = 307 mg/dL 70-110 H Notifi ed Provider [id number]) Lab Interpretation (test Abnormal code = 81701-3) [facility]22-[facility]26 13:30:00 Test Item Value Reference Range Interpretation Comments POCT GLU (test code = 239 mg/dL 70-110 H Notifi ed Provider [id number]) Lab Interpretation (test Abnormal code = 43869-3) [facility]22-[facility]26 03:40:06 Test Item Value Reference Range Interpretation Comments POCT GLU (test code = 225 mg/dL 70-110 H Notifi ed Provider [id number]) Lab Interpretation (test Abnormal code = 31582-4) [facility]22-[facility]-26 01:50:16 Test Item Value Reference Range Interpretation Comments POCT GLU (test code = 9801263114) 240 mg/dL 70-110 H Lab Interpretation (test code = Abnormal 37544-9) [facility]2022-10-25 22:16:54 Test Item Value Reference Range Interpretation Comments POCT GLU (test code = 1511167983) 188 mg/dL 70-110 H Lab Interpretation (test code = Abnormal 68527-5) [facility] GLUCOSE (AUTOMATED)2022-10-25 17:34:44 Test Item Value Reference Range Interpretation Comments POCT GLU (test code = 176 mg/dL 70-110 H Notifi ed Provider [id number]) Lab Interpretation (test Abnormal code = 45869-5) [facility] GLUCOSE (AUTOMATED)2022-10-25 14:26:21 Test Item Value Reference Range Interpretation Comments POCT GLU (test code = 9812274272) 205 mg/dL 70-110 H Lab Interpretation (test code = Abnormal 07180-2) [facility] METABOLIC PANEL (NA, K, CL, CO2, GLUCOSE, BUN, CREATININE, CA)2022-10-25 10:29:58 Test Item Value Reference Range Interpretation Comments NA (test code = 127 mmol/L 135-145 L 6316138946) K (test code = 3.8 mmol/L 3.5-5.0 7682679732) CL (test code = 90 mmol/L 98-108 L 1514004441) CO2 TOTAL (test code = 29 mmol/L 23-31 5680457532) AGAP (test code = 8 2-16 0629167947) BUN (test code = 21 mg/dL 7-23 8943799943) GLUCOSE (test code = 203 mg/dL 70-110 H 8563412447) CREATININE (test code = 0.68 mg/dL 0.50-1.04 9741143224) CALCIUM (test code = 8.8 mg/dL 8.6-10.6 1508638359) eGFR (test code = 82.2 mL/min/1.73m2 3402369091) WINDY (test code = WINDY) Association of [...] tests). Lab Interpretation Abnormal (test code = 76330-5) [facility] 10:25:19 Test Item Value Reference Range Interpretation Comments APTT Patient (test code 63 See_Comment H [Au tomated message] = 3173-2) The system [employer] generated this result transmitted ref erence range: 26 - 36 Seconds. The reference range was not used to int erpret this result as normal/abnormal . Lab Interpretation (test Abnormal code = 14139-5) [facility]2023-[facility]-14 10:25:19 Test Item Value Reference Range Interpretation Comments Fibrinogen (test code = 3424043107) 574 mg/dL 167-453 H Lab Interpretation (test code = Abnormal 78979-8) [facility] / [id number] 10:25:18 Test Item Value Reference Range Interpretation Comments PROTIME PATIENT (test 11.9 See_Comment [Auto mated message] code = 5964-2) The system [employer] generated this result transmitted ref erence range: 10.1 - 1 2.6 Seconds. The re ference range was not u sed to interpret this result as normal/abnor mal. INR (test code = 6301-6) 1.1 Nor mal INR <1.1; Warfarin Therap eutic range 2.0 to 3. 0 or 2.5 to 3.5, dep ending upon the indica tions. Lab Interpretation (test Normal code = 54081-2) [facility] with [id number] 10:19:38 Test Item Value Reference Range Interpretation [...] RDW-SD (test code = 39.8 fL 39.0-49.9 99043-4) RDW-CV (test code = 13.3 % 12.0-15.5 788-0) PLT (test code = 333 See_Comment [Automated 777-3) message] The sy stem which generated this result transmitted reference range : 166 - 358 10*3/ ?L. The reference r fernando was not used to interpret this result as normal/abnormal . MPV (test code = 9.3 fL 9.5-12.9 L 42865-1) NRBC/100 WBC (test 0.0 See_Comment [Automat ed code = 1276128529) message] The system which generated this result transmitted reference range : 0.0 - 10.0 /100 WBCs. The refer ence range was not u sed to interpret th is result as normal/abnormal . NRBC x10^3 (test code See_Comment [Auto mated = 0220789951) message] The s ystem which generated this result transmitted reference range : 10*3/?L. The reference range was not used to interpret this result as normal/abnormal . GRAN MAT (NEUT) % 70.8 % (test code = 770-8) IMM GRAN % (test code 0.40 % = 1384387811) LYMPH % (test code = 18.2 % 736-9) MONO % (test code = 10.1 % 5905-5) EOS % (test code = 0.3 % 713-8) BASO % (test code = 0.2 % 706-2) GRAN MAT x10^3(ANC) 7.00 10*3/uL 1.88-7.09 (test code = 5994471819) IMM GRAN x10^3 (test 0.04 10*3/uL 0.00-0.06 code = 3247539627) LYMPH x10^3 (test code 1.80 10*3/uL 1.32-3.29 = 731-0) MONO x10^3 (test code 1.00 10*3/uL 0.33-0.92 H = 742-7) EOS x10^3 (test code = 0.03 10*3/uL 0.03-0.39 711-2) BASO x10^3 (test code 0.01-0.07 = 704-7) Lab Interpretation Abnormal (test code = 23825-2) [facility] 02:02:22 Test Item Value Reference Range Interpretation Comments MAGNESIUM (test code = 5139790043) 1.6 mg/dL 1.7-2.4 L Lab Interpretation (test code = Abnormal 92330-5) [facility]AL [id number] 00:49:15 Test Item Value Reference Range Interpretation Comments NT-proBNP (test code = 444 pg/mL <=450 6662007357) WNIDY (test code = WINDY) Biotin has been reported to cause a negative bias, interpret results relative to patient's use of biotin. Lab Interpretation (test Normal code = 27237-9) [facility] HospitalTROP[facility] [id number] 00:41:33 Test Item Value Reference Range Interpretation Comments TROPONIN I (test code = 0.006 ng/mL <=0.034 6067428020) WINDY (test code = WINDY) Reference (Normal) [...] biotin. Lab Interpretation Normal (test code = 48825-7) [facility]. METABOLIC PANEL ([id number])2022-10-25 00:41:13 Test Item Value Reference Range Interpretation Comments NA (test code = 122 mmol/L 135-145 L 7205721146) K (test code = 4.1 mmol/L 3.5-5.0 4831202285) CL (test code = 88 mmol/L 98-108 L 3978332922) CO2 TOTAL (test code = 23 mmol/L 23-31 4730249867) AGAP (test code = 11 2-16 7257303536) BUN (test code = 25 mg/dL 7-23 H 2838119820) GLUCOSE (test code = 206 mg/dL 70-110 H 2136618208) CREATININE (test code = 0.77 mg/dL 0.50-1.04 7082901179) TOTAL BILI (test code = 0.5 mg/dL 0.1-1.8 3305827822) CALCIUM (test code = 9.0 mg/dL 8.6-10.6 2017955205) T PROTEIN (test code = 6.8 g/dL 6.3-8.2 6479059685) ALBUMIN (test code = 4.0 g/dL 3.5-5.0 6809237275) ALK PHOS (test code = 87 U/L 34-122 0214390521) ALTv (test code = 16 U/L 5-35 1742-6) AST(SGOT) (test code = 20 U/L 13-40 4854139575) eGFR (test code = 71.2 mL/min/1.73m2 5534490591) WINDY (test code = WINDY) Association of [...] tests). Lab Interpretation Abnormal (test code = 30764-7) [facility] Test Item Value Reference Range Interpretation Comments LIPASE (test code = 6912997156) 39 U/L 0-220 Lab Interpretation (test code = Normal 02364-9) [facility] HospitalPROT[facility]OMBIN [facility] / [id number] 00:26:52 Test Item Value Reference Range Interpretation Comments PROTIME PATIENT (test 13.1 See_Comment [Auto mated message] code = 5964-2) The system [employer] generated this result transmitted ref erence range: 12.0 - 1 4.7 Seconds. The re ference range was not u sed to interpret this result as normal/abnor mal. INR (test code = 6301-6) 1.0 Nor mal INR <1.1; Warfarin Therap eutic range 2.0 to 3. 0 or 2.5 to 3.5, dep ending upon the indica tions. Lab Interpretation (test Normal code = 19260-6) [facility] WITH [id number] 00:19:53 Test Item Value Reference Range Interpretation [...] RDW-SD (test code = 39.7 fL 39.0-49.9 67671-8) RDW-CV (test code = 13.3 % 12.0-15.5 788-0) PLT (test code = 379 See_Comment H [Automated 777-3) message] The sy stem which generated this result transmitted reference range : 166 - 358 10*3/ ?L. The reference r fernando was not used to interpret this result as normal/abnormal . MPV (test code = 9.2 fL 9.5-12.9 L 95348-5) NRBC/100 WBC (test 0.0 See_Comment [Automat ed code = 0563934316) message] The system which generated this result transmitted reference range : 0.0 - 10.0 /100 WBCs. The refer ence range was not u sed to interpret th is result as normal/abnormal . NRBC x10^3 (test code See_Comment [Auto mated = 0409146894) message] The s ystem which generated this result transmitted reference range : 10*3/?L. The reference range was not used to interpret this result as normal/abnormal . GRAN MAT (NEUT) % 70.3 % (test code = 770-8) IMM GRAN % (test code 0.80 % = 4083675862) LYMPH % (test code = 18.7 % 736-9) MONO % (test code = 9.8 % 5905-5) EOS % (test code = 0.2 % 713-8) BASO % (test code = 0.2 % 706-2) GRAN MAT x10^3(ANC) 8.90 10*3/uL 1.88-7.09 H (test code = 1696337097) IMM GRAN x10^3 (test 0.10 10*3/uL 0.00-0.06 H code = 3500777666) LYMPH x10^3 (test code 2.36 10*3/uL 1.32-3.29 = 731-0) MONO x10^3 (test code 1.24 10*3/uL 0.33-0.92 H = 742-7) EOS x10^3 (test code = 0.03 10*3/uL 0.03-0.39 711-2) BASO x10^3 (test code 0.01-0.07 = 704-7) Lab Interpretation Abnormal (test code = 22744-5) [facility]SE (AUTOMATED[facility]2022-10-08 15:06:32 Test Item Value Reference Range Interpretation Comments POCT GLU (test code = 8896284892) 162 mg/dL 70-110 H Lab Interpretation (test code = Abnormal 96889-3) [facility] GLUCOSE (AUTOMATED)2022-10-08 15:06:32 Test Item Value Reference Range Interpretation Comments POCT GLU (test code = 0505189554) 162 mg/dL 70-110 H Lab Interpretation (test code = Abnormal 83862-4) [facility] GLUCOSE (AUTOMATED)2022-10-08 03:55:19 Test Item Value Reference Range Interpretation Comments POCT GLU (test code = 8825833560) 279 mg/dL 70-110 H Lab Interpretation (test code = Abnormal 94889-8) [facility] GLUCOSE (AUTOMATED)2022-10-08 03:55:19 Test Item Value Reference Range Interpretation Comments POCT GLU (test code = 5481490185) 279 mg/dL 70-110 H Lab Interpretation (test code = Abnormal 80463-2) [facility] GLUCOSE (AUTOMATED)2022-10-08 03:11:05 Test Item Value Reference Range Interpretation Comments POCT GLU (test code = 1831847102) 322 mg/dL 70-110 H Lab Interpretation (test code = Abnormal 46635-4) [facility] GLUCOSE (AUTOMATED)2022-10-08 03:11:05 Test Item Value Reference Range Interpretation Comments POCT GLU (test code = 0650793726) 322 mg/dL 70-110 H Lab Interpretation (test code = Abnormal 29944-7) [facility] HospitalProthrombin Time / [id number] 17:14:10 Test Item Value Reference Range Interpretation [...] tions. Lab Interpretation (test Normal code = 75348-3) [facility] WITH [id number] 17:07:07 Test Item Value Reference Range Interpretation Comments WBC (test code = See_Comment [Automated 7490-2) message] The sy stem which generated this result transmitted reference range : 4.30 - 11.10 10*3/?L. The reference range was not used to interpret this result as normal/abnormal . RBC (test code = See_Comment [Automated 799-8) message] The sy stem which generated this [...] RDW-SD (test code = 47.4 fL 39.0-49.9 83314-8) RDW-CV (test code = 15.6 % 12.0-15.5 H 788-0) PLT (test code = See_Comment [Automated 777-3) message] The sy stem which generated this result transmitted reference range : 166 - 358 10*3/ ?L. The reference r fernando was not used to interpret this result as normal/abnormal . MPV (test code = 9.8 fL 9.5-12.9 96812-1) NRBC/100 WBC (test See_Comment [Automat ed code = 1746530746) message] The system which generated this result transmitted reference range : 0.0 - 10.0 /100 WBCs. The refer ence range was not u sed to interpret th is result as normal/abnormal . NRBC x10^3 (test code See_Comment [Auto mated = 4597753189) message] The s ystem which generated this result transmitted reference range : 10*3/?L. The reference range was not used to interpret this result as normal/abnormal . GRAN MAT (NEUT) % 54.5 % (test code = 770-8) IMM GRAN % (test code 0.40 % = 0619911587) LYMPH % (test code = 36.8 % 736-9) MONO % (test code = 7.0 % 5905-5) EOS % (test code = 1.1 % 713-8) BASO % (test code = 0.2 % 706-2) GRAN MAT x10^3(ANC) 2.96 10*3/uL 1.88-7.09 (test code = 7076089401) IMM GRAN x10^3 (test 0.00-0.06 code = 5863872472) LYMPH x10^3 (test code 2.00 10*3/uL 1.32-3.29 = 731-0) MONO x10^3 (test code 0.38 10*3/uL 0.33-0.92 = 742-7) EOS x10^3 (test code = 0.06 10*3/uL 0.03-0.39 711-2) BASO x10^3 (test code 0.01-0.07 = 704-7) Lab Interpretation Abnormal (test code = 07106-6) [facility] HospitalMETANEPHRINES, [id number] 20:47:27 Test Item Value Reference Range Interpretation Comments METANEPH (test <0.10 0.00-0.49 code = 24636-0) NORMETNEPH (test 0.83 nmol/L 0.00-0.89 code = 62210-5) METAPF INT (test See Note INTERPRETIV E code = 62955-6) INFORMATION: Metanephrines, Plasma (Free) This nacho t [...] its perform ance characteristics determined by A [facility]. I t has not been cleared or approved by the [place] Food and Drug Administration. This test was perfor med in a CLIA certified laboratory and is intended for cl inical purposes.Perfor med By: LUCINDA Seoi es[address] [place] [id number] aboratory Director: Juan Espinosa MD, PhD [facility]2022-06-25 17:12:53 Test Item Value Reference Range Interpretation Comments POCT GLU (test code = 4033083756) 200 mg/dL 70-110 H Lab Interpretation (test code = Abnormal 17753-2) [facility]2022-06-25 17:12:53 Test Item Value Reference Range Interpretation Comments POCT GLU (test code = 8316362204) 200 mg/dL 70-110 H Lab Interpretation (test code = Abnormal 08536-8) [facility] GLUCOSE (AUTOMATED)2022-06-25 14:20:12 Test Item Value Reference Range Interpretation Comments POCT GLU (test code = 8971540754) 171 mg/dL 70-110 H Lab Interpretation (test code = Abnormal 08435-1) [facility] GLUCOSE (AUTOMATED)2022-06-25 14:20:12 Test Item Value Reference Range Interpretation Comments POCT GLU (test code = 5078976026) 171 mg/dL 70-110 H Lab Interpretation (test code = Abnormal 13892-0) [facility] GLUCOSE (AUTOMATED)2022-06-25 01:30:55 Test Item Value Reference Range Interpretation Comments POCT GLU (test code = 9297365077) 207 mg/dL 70-110 H Lab Interpretation (test code = Abnormal 48921-5) [facility] GLUCOSE (AUTOMATED)2022-06-25 01:30:55 Test Item Value Reference Range Interpretation Comments POCT GLU (test code = 5991463426) 207 mg/dL 70-110 H Lab Interpretation (test code = Abnormal 26300-8) [facility] GLUCOSE (AUTOMATED)2022-06-24 22:26:40 Test Item Value Reference Range Interpretation Comments POCT GLU (test code = 8009928688) 195 mg/dL 70-110 H Lab Interpretation (test code = Abnormal 37138-8) [facility] GLUCOSE (AUTOMATED)2022-06-24 22:26:40 Test Item Value Reference Range Interpretation Comments POCT GLU (test code = 8904556432) 195 mg/dL 70-110 H Lab Interpretation (test code = Abnormal 48608-0) [facility]2022-06-24 18:07:03 Test Item Value Reference Range Interpretation Comments POCT GLU (test code = 6262966609) 376 mg/dL 70-110 H Lab Interpretation (test code = Abnormal 75819-1) [facility] GLUCOSE (AUTOMATED)2022-06-24 18:07:03 Test Item Value Reference Range Interpretation Comments POCT GLU (test code = 9953799848) 376 mg/dL 70-110 H Lab Interpretation (test code = Abnormal 32141-4) [facility]MAGNESIUM2022-10-14 17:45:35 Test Item Value Reference Range Interpretation Comments MAGNESIUM (test code = 0350985807) 1.9 mg/dL 1.7-2.4 Lab Interpretation (test code = Normal 36403-6) [facility] (NA, K, CL, CO2, GLUCOSE, BUN, CREATININE, CA)2022-06-24 17:45:35 Test Item Value Reference Range Interpretation Comments NA (test code = 137 mmol/L 135-145 9042228862) K (test code = 3.3 mmol/L 3.5-5 L 1323977215) CL (test code = 101 mmol/L 98-108 8463385636) CO2 TOTAL (test code = 25 mmol/L 23-31 0604444335) AGAP (test code = 2-16 8016112025) BUN (test code = 17 mg/dL 7-23 7296870937) GLUCOSE (test code = 264 mg/dL 70-110 H 3653084442) CREATININE (test code = 0.94 mg/dL 0.5-1.04 3219171470) CALCIUM (test code = 9.1 mg/dL 8.6-10.6 6902227361) eGFR (test code = mL/min/1.73m2 4034810347) WINDY (test code = WINDY) Association of [...] tests). Lab Interpretation Abnormal (test code = 95688-1) [facility]2022-10-14 17:45:35 Test Item Value Reference Range Interpretation Comments MAGNESIUM (test code = 6772831717) 1.9 mg/dL 1.7-2.4 Lab Interpretation (test code = Normal 25096-2) [facility]ABOLIC PANEL (NA, K, CL, CO2, GLUCOSE, BUN, CREATININE, CA)2022-06-24 17:45:35 Test Item Value Reference Range Interpretation Comments NA (test code = 137 mmol/L 135-145 8585428150) K (test code = 3.3 mmol/L 3.5-5 L 7707394080) CL (test code = 101 mmol/L 98-108 0216961603) CO2 TOTAL (test code = 25 mmol/L 23-31 4617340553) AGAP (test code = 2-16 3141817410) BUN (test code = 17 mg/dL 7-23 3809834236) GLUCOSE (test code = 264 mg/dL 70-110 H 0369451540) CREATININE (test code = 0.94 mg/dL 0.5-1.04 0556470326) CALCIUM (test code = 9.1 mg/dL 8.6-10.6 2445295685) eGFR (test code = mL/min/1.73m2 8483323264) WINDY (test code = WINDY) Association of [...] tests). Lab Interpretation Abnormal (test code = 33661-3) [facility] WITHOUT [id number] 17:37:52 Test Item Value Reference Range Interpretation Comments WBC (test code = 6690-2) See_Comment [A utomated message] The system [employer] generated this result transmit timur reference range : 4.30 - 11.10 10*3/?L. The reference range was not used to interpret this result as normal/abnormal . RBC (test code = 789-8) See_Comment [Au tomated message] The system [employer] generated this result transmit timur reference range [...] 777-3) See_Comment [Au tomated message] The system [facility] generated this result transmit timur reference range : 166 - 358 10*3/?L. The reference range was not used to interpret this result as normal/abnormal . MPV (test code = 9.0 fL 9.5-12.9 L 87467-4) RDW-CV (test code = 16.6 % 12-15.5 H 788-0) RDW-SD (test code = 44.0 fL 39-49.9 23702-2) NRBC x10^3 (test code = See_Comment [Au tomated message] 1146042842) The system [employer] generated this result transmit timur reference range : 10*3/?L. The reference range was not used to interpret this result as normal/abnormal . NRBC/100 WBC (test code See_Comment [Au tomated message] = 8114600404) The system [facility] generated this result transmit timur reference range : 0.0 - 10.0 /100 WBC s. The reference r fernando was not used to interpret this result as normal/abnormal . IPF % (test code = 9915247122) Lab Interpretation (test Abnormal code = 96379-1) [facility] WITHOUT [id number] 17:37:52 Test Item Value Reference Range Interpretation Comments WBC (test code = 6690-2) See_Comment [A utomated message] The system [facility] generated this result transmit timur reference range : 4.30 - 11.10 10*3/?L. The reference range was not used to interpret this result as normal/abnormal . RBC (test code = 789-8) See_Comment [Au tomated message] The system [facility] generated this result transmit timur reference range [...] 777-3) See_Comment [Au tomated message] The system [employer] generated this result transmit timur reference range : 166 - 358 10*3/?L. The reference range was not used to interpret this result as normal/abnormal . MPV (test code = 9.0 fL 9.5-12.9 L 96685-7) RDW-CV (test code = 16.6 % 12-15.5 H 788-0) RDW-SD (test code = 44.0 fL 39-49.9 07621-7) NRBC x10^3 (test code = See_Comment [Au tomated message] 6953911462) The system [employer] generated this result transmit timur reference range : 10*3/?L. The reference range was not used to interpret this result as normal/abnormal . NRBC/100 WBC (test code See_Comment [Au tomated message] = 3359282127) The system [employer] generated this result transmit timur reference range : 0.0 - 10.0 /100 WBC s. The reference r fernando was not used to interpret this result as normal/abnormal . IPF % (test code = 6717975489) Lab Interpretation (test Abnormal code = 85938-6) [facility] GLUCOSE (AUTOMATED)2022-06-24 13:05:03 Test Item Value Reference Range Interpretation Comments POCT GLU (test code = 5231066437) 175 mg/dL 70-110 H Lab Interpretation (test code = Abnormal 51237-5) [facility] GLUCOSE (AUTOMATED)2022-06-24 13:05:03 Test Item Value Reference Range Interpretation Comments POCT GLU (test code = 0165118057) 175 mg/dL 70-110 H Lab Interpretation (test code = Abnormal 20412-0) [facility] GLUCOSE (AUTOMATED)2022-06-24 03:59:23 Test Item Value Reference Range Interpretation Comments POCT GLU (test code = 8647538668) 200 mg/dL 70-110 H Lab Interpretation (test code = Abnormal 18876-6) [facility] 03:59:23 Test Item Value Reference Range Interpretation Comments POCT GLU (test code = 7075895848) 200 mg/dL 70-110 H Lab Interpretation (test code = Abnormal 76689-1) [facility] GLUCOSE (AUTOMATED)2022-06-23 22:39:44 Test Item Value Reference Range Interpretation Comments POCT GLU (test code = 5521352941) 210 mg/dL 70-110 H Lab Interpretation (test code = Abnormal 43818-7) [facility] GLUCOSE (AUTOMATED)2022-06-23 22:39:44 Test Item Value Reference Range Interpretation Comments POCT GLU (test code = 6594065929) 210 mg/dL 70-110 H Lab Interpretation (test code = Abnormal 71396-7) [facility] GLUCOSE (AUTOMATED)2022-06-23 17:10:04 Test Item Value Reference Range Interpretation Comments POCT GLU (test code = 0351575556) 189 mg/dL 70-110 H Lab Interpretation (test code = Abnormal 09378-3) [facility] GLUCOSE (AUTOMATED)2022-06-23 17:10:04 Test Item Value Reference Range Interpretation Comments POCT GLU (test code = 7219318322) 189 mg/dL 70-110 H Lab Interpretation (test code = Abnormal 64122-1) [facility] GLUCOSE (AUTOMATED)2022-06-23 12:33:02 Test Item Value Reference Range Interpretation Comments POCT GLU (test code = 5916831166) 193 mg/dL 70-110 H Lab Interpretation (test code = Abnormal 12123-5) [facility] GLUCOSE (AUTOMATED)2022-06-23 12:33:02 Test Item Value Reference Range Interpretation Comments POCT GLU (test code = 0256068237) 193 mg/dL 70-110 H Lab Interpretation (test code = Abnormal 60871-0) [facility] GLUCOSE (AUTOMATED)2022-06-23 02:42:00 Test Item Value Reference Range Interpretation Comments POCT GLU (test code = 8422189106) 166 mg/dL 70-110 H Lab Interpretation (test code = Abnormal 77075-4) [facility]22-[facility]-23 02:42:00 Test Item Value Reference Range Interpretation Comments POCT GLU (test code = 7943498352) 166 mg/dL 70-110 H Lab Interpretation (test code = Abnormal 92978-5) [facility] HospitalPhosphorus [id number] 23:14:43 Test Item Value Reference Range Interpretation Comments PHOSPHORUS (test code = 3.1 mg/dL 2.5-5 Slig ht hemolysis 9469986487) Lab Interpretation (test Normal code = 45814-6) [facility] HospitalPhosphorus [id number] 23:14:43 Test Item Value Reference Range Interpretation Comments PHOSPHORUS (test code = 3.1 mg/dL 2.5-5 Slig ht hemolysis 6977209914) Lab Interpretation (test Normal code = 65184-5) [facility] GLUCOSE (AUTOMATED)2022-06-22 22:01:14 Test Item Value Reference Range Interpretation Comments POCT GLU (test code = 6867363635) 216 mg/dL 70-110 H Lab Interpretation (test code = Abnormal 58894-7) [facility] GLUCOSE (AUTOMATED)2022-06-22 22:01:14 Test Item Value Reference Range Interpretation Comments POCT GLU (test code = 7467750561) 216 mg/dL 70-110 H Lab Interpretation (test code = Abnormal 15189-6) [facility] GLUCOSE (AUTOMATED)2022-06-22 16:56:03 Test Item Value Reference Range Interpretation Comments POCT GLU (test code = 6337195757) 170 mg/dL 70-110 H Lab Interpretation (test code = Abnormal 36459-6) [facility] GLUCOSE (AUTOMATED)2022-06-22 16:56:03 Test Item Value Reference Range Interpretation Comments POCT GLU (test code = 1359457005) 170 mg/dL 70-110 H Lab Interpretation (test code = Abnormal 59009-9) [facility] GLUCOSE (AUTOMATED)2022-06-22 13:15:17 Test Item Value Reference Range Interpretation Comments POCT GLU (test code = 6741639246) 186 mg/dL 70-110 H Lab Interpretation (test code = Abnormal 80937-4) [facility] GLUCOSE (AUTOMATED)2022-06-22 13:15:17 Test Item Value Reference Range Interpretation Comments POCT GLU (test code = 6568513784) 186 mg/dL 70-110 H Lab Interpretation (test code = Abnormal 76345-0) [facility] GLUCOSE (AUTOMATED)2022-06-22 00:55:28 Test Item Value Reference Range Interpretation Comments POCT GLU (test code = 0848723016) 201 mg/dL 70-110 H Lab Interpretation (test code = Abnormal 66160-1) [facility] GLUCOSE (AUTOMATED)2022-06-22 00:55:28 Test Item Value Reference Range Interpretation Comments POCT GLU (test code = 9794828792) 201 mg/dL 70-110 H Lab Interpretation (test code = Abnormal 39568-8) [facility] HospitalTransthoracic echo (TTE)2022-06-21 22:48:56 Test Item Value Reference Range Interpretation Comments Height (test code = in 1902982212) Weight (test code = lbs 5143688142) Systolic BP (test code = mmHg 4128653865) Diastolic BP (test code mmHg = 4770567566) Heart Rate (test code = bpm 7157305351) LVOT stroke volume (test 79.70 cm3 code = 1304394927) EF(Teich) (test code = 56.30 % 6547450103) LVIDD (test code = 4.60 cm 3658027397) LVIDS (test code = 3.30 cm 4483834900) Left Ventricular End 43.5 mL Systolic Volume by Teichholz Method (test code = 7750724) Left Ventricular End 99.6 mL Diastolic Volume by Teichholz Method (test code = 1885458) IVS (test code = 1.19 cm 0366290106) LVPWD (test code = 1.08 cm 8457199996) LVOT diameter (test code 2.05 cm = 2249529464) LVOT area (test code = 3.30 cm2 1434001337) FS (test code = 29 % 6838169439) MV Peak E Tian (test code 84.6 cm/s = 0138347961) MV Peak A Tian (test code 110.3 cm/s = 9859064622) E/A ratio (test code = ratio 3343482858) E wave decelartion time 0.25 s (test code = 2772862895) MV E/e' septal (test 4.0 cm/s code = 8292654919) LA Volume Index (BP) 36.7 mL/m2 (test code = 3913578435) LA volume (BP) (test 65.4 mL code = 9475935522) LVOT peak tian (test code 100.1 cm/s = 5529289831) LVOT mn grad (test code mmHg = 5576280492) BSA (test code = 1.78 m2 3406454257) LA size (test code = 3.4 cm 0595478703) LAV(MOD-sp2) (test code 61.30 mL = 3887101814) LAV(MOD-sp4) (test code 58.90 mL = 4663733730) Tapse (test code = 2.48 cm 1121004584) AV LVOT peak gradient mmHg (test code = 5275107665) LVOT peak VTI (test code 24.2 cm = 6202091688) LV V1 mean (test code = 64.80 cm/s 4119819466) MV Prop V (test code = 31.70 cm/s 7319382760) Ao root diam (test code 3.40 cm = 2607102301) Aortic root (test code = 3.4 cm 0990573134) Ao root annulus (test 3.4 cm code = 1965850838) PW (test code = 1.08 cm 0.6-1.0 5295651412) EF - 2D (test code = 56.30 % 18114105) Interventricular Septum 1.19 cm Diastolic Thickness by 2D (test code = 3944866) Left Ventricular Cardiac 4.8 L/min Output (test code = 4881840) Aortic HR (test code = BPM 3702849709) Aortic valve mean 86.9 cm/s velocity (test code = 0292127744) Ao peak tian (test code = 153.7 cm/s 5604812193) Ao VTI (test code = 33.7 cm 3664717438) AV area by cont VTI 2.4 cm2 (test code = 8955512688) AV area peak tian (test 2.2 cm2 code = 3529131345) Ao max PG (test code = 9.40 mm[Hg] 6191829922) AV peak gradient (test mmHg code = 5469990738) AV valve area (test code 2.37 cm2 = 7869124097) AV mean gradient (test mmHg code = 9089117719) IVC Diam Exp(MM) (test 1.87 cm code = 7248680892) IVC Diam Ins(MM) (test 0.78 cm code = 4119397637) Radiology Study observation (narrative) (test code = 93516-8) WINDY (test code = WINDY) ?Left?Ventricle: Left [...] enhancing agent used. Patient exhibited sinus bradycardia. [facility]2022-06-21 22:48:56 Test Item Value Reference Range Interpretation Comments Height (test code = in 9480775785) Weight (test code = lbs 2478328230) Systolic BP (test code = mmHg 7686453195) Diastolic BP (test code mmHg = 1627869056) Heart Rate (test code = bpm 8433998059) LVOT stroke volume (test 79.70 cm3 code = 1904032820) EF(Teich) (test code = 56.30 % 6973992258) LVIDD (test code = 4.60 cm 8368518771) LVIDS (test code = 3.30 cm 1351747909) Left Ventricular End 43.5 mL Systolic Volume by Teichholz Method (test code = 3113759) Left Ventricular End 99.6 mL Diastolic Volume by Teichholz Method (test code = 9220751) IVS (test code = 1.19 cm 3659356453) LVPWD (test code = 1.08 cm 9661947797) LVOT diameter (test code 2.05 cm = 1194779998) LVOT area (test code = 3.30 cm2 4870588013) FS (test code = 29 % 4209513937) MV Peak E Tian (test code 84.6 cm/s = 4251303688) MV Peak A Tian (test code 110.3 cm/s = 7446744501) E/A ratio (test code = ratio 2529781345) E wave decelartion time 0.25 s (test code = 3947020490) MV E/e' septal (test 4.0 cm/s code = 7829536897) LA Volume Index (BP) 36.7 mL/m2 (test code = 7984427719) LA volume (BP) (test 65.4 mL code = 8456265482) LVOT peak tian (test code 100.1 cm/s = 2902158800) LVOT mn grad (test code mmHg = 7938477974) BSA (test code = 1.78 m2 7611304910) LA size (test code = 3.4 cm 6587663105) LAV(MOD-sp2) (test code 61.30 mL = 0680059707) LAV(MOD-sp4) (test code 58.90 mL = 2954895814) Tapse (test code = 2.48 cm 2539120819) AV LVOT peak gradient mmHg (test code = 9443326470) LVOT peak VTI (test code 24.2 cm = 7115921740) LV V1 mean (test code = 64.80 cm/s 9163112080) MV Prop V (test code = 31.70 cm/s 2721306190) Ao root diam (test code 3.40 cm = 3613270783) Aortic root (test code = 3.4 cm 5418165742) Ao root annulus (test 3.4 cm code = 4415225044) PW (test code = 1.08 cm 0.6-1.0 9154290903) EF - 2D (test code = 56.30 % 57675464) Interventricular Septum 1.19 cm Diastolic Thickness by 2D (test code = 5069887) Left Ventricular Cardiac 4.8 L/min Output (test code = 3660733) Aortic HR (test code = BPM 6044759263) Aortic valve mean 86.9 cm/s velocity (test code = 9637102201) Ao peak tian (test code = 153.7 cm/s 7143248428) Ao VTI (test code = 33.7 cm 3251240736) AV area by cont VTI 2.4 cm2 (test code = 6455957004) AV area peak tian (test 2.2 cm2 code = 1148487294) Ao max PG (test code = 9.40 mm[Hg] 4643813537) AV peak gradient (test mmHg code = 2085018572) AV valve area (test code 2.37 cm2 = 0758989056) AV mean gradient (test mmHg code = 3361451265) IVC Diam Exp(MM) (test 1.87 cm code = 2496609727) IVC Diam Ins(MM) (test 0.78 cm code = 4361887500) Radiology Study observation (narrative) (test code = 00254-8) WINDY (test code = WINDY) ?Left?Ventricle: Left [...] agent used. Patient exhibited sinus bradycardia. [facility] GLUCOSE (AUTOMATED)2022-06-21 21:50:29 Test Item Value Reference Range Interpretation Comments POCT GLU (test code = 5155675772) 181 mg/dL 70-110 H Lab Interpretation (test code = Abnormal 40646-3) [facility] GLUCOSE (AUTOMATED)2022-06-21 21:50:29 Test Item Value Reference Range Interpretation Comments POCT GLU (test code = 8657300659) 181 mg/dL 70-110 H Lab Interpretation (test code = Abnormal 28773-3) [facility] GLUCOSE (AUTOMATED)2022-06-21 20:55:06 Test Item Value Reference Range Interpretation Comments POCT GLU (test code = 7132060552) 159 mg/dL 70-110 H Lab Interpretation (test code = Abnormal 45378-7) [facility] GLUCOSE (AUTOMATED)2022-06-21 20:55:06 Test Item Value Reference Range Interpretation Comments POCT GLU (test code = 6048436420) 159 mg/dL 70-110 H Lab Interpretation (test code = Abnormal 59815-6) [facility] [id number] 11:32:00 Test Item Value Reference Range Interpretation Comments POC-GLUCOSE METER 235 mg/dL 70-110 H : TESTED A T [facility] 6720 (BEAKER) (test code = [facility], 1538) 513[address]: Refrigeration Repair Supervisor/Techni chika ID = [id number] for QUEEN LASSITER POCT-GLUCOSE [id number] 07:37:00 Test Item Value Reference Range Interpretation Comments POC-GLUCOSE METER 190 mg/dL 70-110 H : TESTED A T [facility] 6720 (BEAKER) (test code = [facility], 1538) 31322: Refrigeration Repair Supervisor/Techni chika ID = [id number] for QUEEN LASSITER CBC W/PLT COUNT & AUTO [id number] 06:10:00 Test Item Value Reference Range Interpretation [...] PERCENT (BEAKER) (test code = 2801) POCT-GLUCOSE [id number] 22:16:00 Test Item Value Reference Range Interpretation Comments POC-GLUCOSE METER 275 mg/dL 70-110 H : TESTED A T [facility] 6720 (BEAKER) (test code = [facility], 153) 40243: Refrigeration Repair Supervisor/Techni chika ID = [id number] for DI [place], ISSAIRIS POCT-GLUCOSE [id number] 16:44:00 Test Item Value Reference Range Interpretation Comments POC-GLUCOSE METER 200 mg/dL 70-110 H : TESTED A T [facility] 6720 (BEAKER) (test code = [facility], 153) 33798: Refrigeration Repair Supervisor/Techni chika ID = [id number] for [place] QUEEN SIBLEY POCT-GLUCOSE [id number] 12:11:00 Test Item Value Reference Range Interpretation Comments POC-GLUCOSE METER 180 mg/dL 70-110 H : TESTED A T [facility] 6720 (BEAKER) (test code = [facility], 153) 88419: Refrigeration Repair Supervisor/Techni chika ID = [id number] for NW AJIAKU, SHAYY POCT-GLUCOSE [id number] 08:17:00 Test Item Value Reference Range Interpretation Comments POC-GLUCOSE METER 158 mg/dL 70-110 H : TESTED A T [facility] 6720 (BEAKER) (test code = DINA Ortega [place], 1538) 99246: Refrigeration Repair Supervisor/Techni chika ID = [id number] for NW SHAYY ALEXANDER CBC W/PLT COUNT & AUTO [id number] 04:14:00 Test Item Value Reference Range Interpretation [...] PERCENT (BEAKER) (test code = 2801) POCT-GLUCOSE [id number] 16:12:00 Test Item Value Reference Range Interpretation Comments POC-GLUCOSE METER 233 mg/dL 70-110 H : TESTED A T [facility] 6720 (BEAKER) (test code = [facility], 1538) 93051: Refrigeration Repair Supervisor/Techni chika ID = [id number] for SHAYY ALBRIGHT POCT-GLUCOSE [id number] 12:02:00 Test Item Value Reference Range Interpretation Comments POC-GLUCOSE METER 190 mg/dL 70-110 H : TESTED A T [facility] 6720 (BEAKER) (test code = [facility], 1538) 21178: Refrigeration Repair Supervisor/Techni chika ID = [id number] for SHAYY ALBRIGHT STOOL CULTURE + SHIGA [id number] 09:19:00 Test Item Value Reference Range Interpretation Comments CULTURE (BEAKER) No Salmonella, Shigella (test code = 1095) or Campylobacter isolated POCT-GLUCOSE [id number] 07:46:00 Test Item Value Reference Range Interpretation Comments POC-GLUCOSE METER 174 mg/dL 70-110 H : TESTED A T [facility] 6720 (BEAKER) (test code = [facility], 1538) 33729: Refrigeration Repair Supervisor/Techni chika ID = [id number] for SHAYY ALBRIGHT CBC W/PLT COUNT & AUTO [id number] 06:53:00 Test Item Value Reference Range Interpretation [...] 0-1 PERCENT (BEAKER) (test code = 2801) [id number] 06:20:00 Test Item Value Reference Range Interpretation Comments MAGNESIUM (BEAKER) 1.7 mg/dL 1.6-2.6 Specimen slightly (test code = 627) hemolyzed Refrigeration Repair Supervisor JAIME GUIDO WBASIC METABOLIC [id number] 06:20:00 Test Item Value Reference Range Interpretation [...] S NOT APPLICABLE FOR DIALYSIS PATIEN TS. Refrigeration Repair Supervisor ID Suman GUIDO WHEPATIC FUNCTION [id number] 06:20:00 Test Item Value Reference Range Interpretation [...] Specimen slightly (test code = 347) hemolyzed Refrigeration Repair Supervisor JAIME GUIDO WPOCT-GLUCOSE [id number] 21:46:00 Test Item Value Reference Range Interpretation Comments POC-GLUCOSE METER 181 mg/dL 70-110 H : TESTED A T [facility] 6720 (CALI) (test code = DINA Ortega [facility], 1538) 83035: Refrigeration Repair Supervisor/Techni chika ID = [id number] for JEREMY GUPTA CT, BRAIN, WITHOUT [id number] 18:11:00FINAL REPORT CT, BRAIN, WITHOUT CONTRAST INDICATION: [...] Annmarie Burch Verified Date/Time: 03/26/2020 18:11:57 POCT-GLUCOSE [id number] 17:31:00 Test Item Value Reference Range Interpretation Comments POC-GLUCOSE METER 209 mg/dL 70-110 H : Notified RN/MD: (CALI) (test code = TESTED AT [facility] 6720 1538) [facility], [address]: Refrigeration Repair Supervisor/Techni chika ID = [id number] for MEERA LEMOS SHIGA TOXIN [id number] 15:19:00 Test Item Value Reference Range Interpretation Comments SHIGA TOXIN 1 (BEAKER) (test Not detected Not detected code = 2177) SHIGA TOXIN 2 (BEAKER) (test Not detected Not detected code = 2179) POCT-GLUCOSE [id number] 11:53:00 Test Item Value Reference Range Interpretation Comments POC-GLUCOSE METER 159 mg/dL 70-110 H : TESTED A T [facility] 6720 (BEAKER) (test code = DINA Ortega [facility], 1538) 08413: Refrigeration Repair Supervisor/Techni chika ID = [id number] for SANDRA HOLLIS STOOL PATH [id number] 11:36:00 Test Item Value Reference Range Interpretation Comments PATHOGEN EXAM CHARGED (BEAKER) (test Done code = 2381) POCT-GLUCOSE [id number] 07:11:00 Test Item Value Reference Range Interpretation Comments POC-GLUCOSE METER 146 mg/dL 70-110 H : TESTED A T [facility] 6720 (BEAKER) (test code = DINA Ortega [facility], 1538) 27066: Refrigeration Repair Supervisor/Techni chika ID = [id number] for MILY GROVE [id number] 06:04:00 Test Item Value Reference Range Interpretation Comments MAGNESIUM (BEAKER) (test code = 1.9 mg/dL 1.6-2.6 627) Refrigeration Repair Supervisor ID - PIAYA LBASIC METABOLIC [id number] 06:04:00 Test Item Value Reference Range Interpretation [...] S NOT APPLICABLE FOR DIALYSIS PATIEN TS. Refrigeration Repair Supervisor ID - PIAYA LHEPATIC FUNCTION [id number] 06:04:00 Test Item Value Reference Range Interpretation [...] (test code = 15 U/L 6-55 347) Refrigeration Repair Supervisor ID - PIAYA LCBC W/PLT COUNT & AUTO [id number] 05:20:00 Test Item Value Reference Range Interpretation [...] PERCENT (BEAKER) (test code = 2801) POCT-GLUCOSE [id number] 21:12:00 Test Item Value Reference Range Interpretation Comments POC-GLUCOSE METER 154 mg/dL 70-110 H : TESTED A T [facility] 6720 (BEAKER) (test code = [facility], 153) 86178: Refrigeration Repair Supervisor/Techni chika ID = [id number] for KE BE, LETTYTU POCT-GLUCOSE [id number] 17:43:00 Test Item Value Reference Range Interpretation Comments POC-GLUCOSE METER 152 mg/dL 70-110 H : TESTED A T [facility] 6720 (BEAKER) (test code = [facility], 153) 30979: Refrigeration Repair Supervisor/Techni chika ID = [id number] for [place] LLIS, PANCHO SARS-COV2/RT-PCR ([facility])2020-03-25 13:40:00 Test Item Value Reference Range Interpretation Comments SARS-COV2/RT-PCR (test code = Negative Not Detected, Negative 7272760) SARS-COV-[address] [facility] (test code = 8227929) Negative result for this test determines that [...] of the Act.Fact Sheet for Healthcare Prov iders:https://www.[employer]/sites/default/files/product/documents/Fact_Sheet_HC _Atwrzsjzp_Yyvm_VOJU-LzC-6.pdfFact Sheet for Healthcare Patients:https://www.[employer]/sites/default/files/product/docume nts/Tekb_Btbrt_Hpnmtetw_Jvrk_OQXM-JtH-3.pdfPerforming Laboratory:[facility] [facility], [place] [address]APIY-VLCKXSH METER 2020-03-25 11:24:00 Test Item Value Reference Range Interpretation Comments POC-GLUCOSE METER 165 mg/dL 70-110 H : TESTED A T [facility] 6720 (BEAKER) (test code = [place], 1538) 905[address]: Refrigeration Repair Supervisor/Techni chika ID = [id number] for SANDRA HOLLIS TSH/FREE T4 IF [id number] 10:59:00 Test Item Value Reference Range Interpretation Comments THYROID STIMULATING HORMONE 0.622 uIU/mL 0.350-4.940 (BEAKER) (test code = 772) Refrigeration Repair Supervisor ID - WAGNER LHEMOGLOBIN [id number] 10:59:00 Test Item Value Reference Range Interpretation Comments HEMOGLOBIN A1C (BEAKER) (test code = 6.9 % 4.3-6.1 H 368) TROPONIN [id number] 10:50:00 Test Item Value Reference Range Interpretation [...] failure, acidosis, acute neurological disease, and persistent tachyarrhythmia.Refrigeration Repair Supervisor ID - WAGNER LBASIC METABOLIC [id number] 10:42:00 Test Item Value Reference Range Interpretation [...] S NOT APPLICABLE FOR DIALYSIS PATIEN TS. Refrigeration Repair Supervisor ID - WAGNER LHEPATIC FUNCTION [id number] 10:42:00 Test Item Value Reference Range Interpretation [...] (test code = 10 U/L 6-55 347) Refrigeration Repair Supervisor ID - WAGNER [id number] 10:41:00 Test Item Value Reference Range Interpretation Comments PHOSPHORUS (BEAKER) (test code = 3.2 mg/dL 2.3-4.7 604) Refrigeration Repair Supervisor ID - WAGNER [id number] 10:41:00 Test Item Value Reference Range Interpretation Comments MAGNESIUM (BEAKER) (test code = 2.0 mg/dL 1.6-2.6 627) Refrigeration Repair Supervisor ID - WAGNER LPOCT-GLUCOSE [id number] 09:10:00 Test Item Value Reference Range Interpretation Comments POC-GLUCOSE METER 116 mg/dL 70-110 H : TESTED A T [facility] 6720 (BEAKER) (test code = [place], 1538) 18334: Refrigeration Repair Supervisor/Techni chika ID = [id number] for LANCE TRACEY RAD, CHEST, 1 VIEW, NON [id number] 07:49:00Reason for exam:->chest painShould this be performed at the bedside?->YesFINAL REPORT CLINICAL HISTORY: chest pain TECHNIQUE: 1 view of the chest. COMPAR NIEVES: None IMPRESSION: There are linear bandlike opacities in the bilateral mid and lower lungs. There are no significant effusions. The cardiomediastinal silhouette is magnified by technique. Signed: Keturah Gillespie MDReport Verified Date/Time: 03/25/2020 07:49:59 Reading Location: [facility] Radiology Reading Room C. DIFFICILE GDH [id number] 06:54:00 Test Item Value Reference Range Interpretation Comments CDT TOXIN (test code Negative Negative = 3490227693) CDT GDH ANTIGEN (test Negative Negative No ind ication of code = 2589068786) Clostridi um difficile infection and n o colonization. Discontinue ent perez isolation and t herapy. Testing performed by [employer] Rapid Cassette Assay. For GDH, published sensitivity of the assay is 98.7% compared to cytotoxicity testing. For Toxin AB, published sensitivity is 87.8% and specificity 99.4% compared to cytotoxicity testing.Verification of kit performance was done by the [facility] MicrobiologyLab prior to clinical use.URINALYSIS WITH MICROSCOPIC IF [id number] 06:35:00 Test Item Value Reference Range Interpretation [...] = 463) SOURCE(BEAKER) (test code = 2795) Refrigeration Repair Supervisor ID - [auto]Refrigeration Repair Supervisor ID - techURINALYSIS [id number] 06:35:00 Test Item Value Reference Range Interpretation Comments RBC UA (BEAKER) (test code = 519) 3 /HPF WBC UA (BEAKER) (test code = 520) 11 /HPF BACTERIA (BEAKER) (test code = 517) Rare SQUAMOUS EPITHELIAL (BEAKER) (test 1 /HPF code = 516) Refrigeration Repair Supervisor ID - techPOCT-GLUCOSE [id number] 05:08:00 Test Item Value Reference Range Interpretation Comments POC-GLUCOSE METER 128 mg/dL 70-110 H : TESTED A T [facility] 6720 (BEAKER) (test code = D[place], 1538) 92698: Refrigeration Repair Supervisor/Techni chika ID = [id number] for As Meena beckett CHEM [id number] 12:00:00 Test Item Value Reference Range Interpretation Comments eGFR (test code = eGFR) 86 [facility] [employer] [id number] 12:00:00 Test Item Value Reference Range Interpretation Comments AGAP (test code = AGAP) 9.5 10.0-20.0 [facility] [employer] [id number] 12:00:00 Test Item Value Reference Range Interpretation Comments CO2 (test code = CO2) 33 24-32 [facility] [employer] [id number] 12:00:00 Test Item Value Reference Range Interpretation Comments Calcium Lvl (test code = Calcium Lvl) 8.7 8.5-10.5 [facility] [employer] [id number] 12:00:00 Test Item Value Reference Range Interpretation Comments Glucose Lvl (test code = Glucose Lvl) 201 70-99 [facility] [employer] [id number] 12:00:00 Test Item Value Reference Range Interpretation Comments BUN (test code = BUN) 19 7-22 [facility] [employer] [id number] 12:00:00 Test Item Value Reference Range Interpretation Comments Creatinine Lvl (test code = Creatinine 0.61 0.50-1.40 Lvl) [facility] [employer] [id number] 12:00:00 Test Item Value Reference Range Interpretation Comments Sodium Lvl (test code = Sodium Lvl) 127 135-145 [facility] [employer] [id number] 12:00:00 Test Item Value Reference Range Interpretation Comments Chloride Lvl (test code = Chloride Lvl) 89 95-109 [facility]2018-06-19 12:00:00 Test Item Value Reference Range Interpretation Comments Potassium Lvl (test code = Potassium 4.5 3.5-5.1 Lvl) [facility]2018-06-18 08:31:00 Test Item Value Reference Range Interpretation Comments eGFR (test code = eGFR) 86 [facility]2018-06-18 08:31:00 Test Item Value Reference Range Interpretation Comments BUN (test code = BUN) 18 7-22 [facility]2018-06-18 08:31:00 Test Item Value Reference Range Interpretation Comments Glucose Lvl (test code = Glucose Lvl) 181 70-99 [facility]2018-06-18 08:31:00 Test Item Value Reference Range Interpretation Comments Creatinine Lvl (test code = Creatinine 0.61 0.50-1.40 Lvl) [facility]2018-06-18 08:31:00 Test Item Value Reference Range Interpretation Comments Calcium Lvl (test code = Calcium Lvl) 8.5 8.5-10.5 [facility]2018-06-18 08:31:00 Test Item Value Reference Range Interpretation Comments CO2 (test code = CO2) 34 24-32 [facility]2018-06-18 08:31:00 Test Item Value Reference Range Interpretation Comments Chloride Lvl (test code = Chloride Lvl) 88 95-109 [facility]2018-06-18 08:31:00 Test Item Value Reference Range Interpretation Comments Potassium Lvl (test code = Potassium 4.3 3.5-5.1 Lvl) [facility]2018-06-18 08:31:00 Test Item Value Reference Range Interpretation Comments Sodium Lvl (test code = Sodium Lvl) 131 135-145 [facility]2018-06-18 08:31:00 Test Item Value Reference Range Interpretation Comments AGAP (test code = AGAP) 13.3 10.0-20.0 [id number] 08:31:00 Test Item Value Reference Range Interpretation Comments Hgb (test code = Hgb) 9.4 12.0-16.0 [facility] [id number] 08:31:00 Test Item Value Reference Range Interpretation Comments RBC (test code = RBC) 3.38 4.20-5.40 [facility] HospitalKpvkrtwOSUSQHICYF8404-00-37 08:31:00 Test Item Value Reference Range Interpretation Comments WBC (test code = WBC) 8.8 3.7-10.4 [facility] Hospit[id number] 08:31:00 Test Item Value Reference Range Interpretation Comments Hct (test code = Hct) 27.7 36.0-48.0 [facility] HospitalVvruomzZUHZQXQJFP9861-92-35 08:31:00 Test Item Value Reference Range Interpretation Comments MPV (test code = MPV) 8.5 7.4-10.4 [facility] HospitalKqoeaalQQVTDOKZAV0750-29-08 08:31:00 Test Item Value Reference Range Interpretation Comments Platelet (test code = Platelet) 213 133-450 [facility] HospitalDpdbhzfYCLYGLONQH7816-93-50 08:31:00 Test Item Value Reference Range Interpretation Comments RDW (test code = RDW) 15.1 11.5-14.5 [facility] HospitalKotqkeeAFBHEIKHRP1244-03-54 08:31:00 Test Item Value Reference Range Interpretation Comments MCHC (test code = MCHC) 34.0 32.0-36.0 [facility] HospitalWsfwwxnMGOTFUSUIX9868-03-34 08:31:00 Test Item Value Reference Range Interpretation Comments MCH (test code = MCH) 27.8 pg 27.0-31.0 [facility] HospitalJemsofrEQZAEDAZZP6216-95-16 08:31:00 Test Item Value Reference Range Interpretation Comments MCV (test code = MCV) 81.8 80.0-98.0 [facility] HospitalOtexsihTYZRLBJCZV0247-91-13 08:31:00 Test Item Value Reference Range Interpretation Comments Lymphocytes (test code = Lymphocytes) 11.3 20.0-40.0 [facility] HospitalLzsnrxvMWDKUXGQTE7912-94-63 08:31:00 Test Item Value Reference Range Interpretation Comments Segs (test code = Segs) 81.3 45.0-75.0 [facility] HospitalHtoeppjRTECLBNWQW9965-76-76 08:31:00 Test Item Value Reference Range Interpretation Comments Basophils (test code = 0.3 See_Comment [Aut omated message] The Basophils) system which ge nerated this result tra nsmitted reference range : <=1.0. The reference r fernando was not used to int erpret this result as normal/abnormal . [facility] HospitalGqjydusFHGZHRVQPX3601-62-48 08:31:00 Test Item Value Reference Range Interpretation Comments Eosinophils (test code = 2.2 See_Comment [A utomated message] The Eosinophils) system which ge nerated this result tra nsmitted reference range : <=4.0. The reference r fernando was not used to int erpret this result as normal/abnormal . [facility] HospitalMqrydjvFDVTQUUNBQ7559-36-54 08:31:00 Test Item Value Reference Range Interpretation Comments Monocytes (test code = Monocytes) 4.9 2.0-12.0 [facility] HospitalEmwhmncOWXUSJPAOB3666-90-18 08:31:00 Test Item Value Reference Range Interpretation Comments Lymphocytes # (test code = Lymphocytes 1.0 1.0-5.5 #) [facility] HospitalCfjanskSVNCNJPTYJ6818-35-71 08:31:00 Test Item Value Reference Range Interpretation Comments Segs-Bands # (test code = Segs-Bands #) 7.2 1.5-8.1 [facility] HospitalAmlmpasDSNCTONWQL4214-77-21 08:31:00 Test Item Value Reference Range Interpretation Comments Eosinophils # (test code 0.2 See_Comment [A utomated message] The = Eosinophils #) system whic h generated this result tra nsmitted reference range : <=0.5. The reference r fernando was not used to int erpret this result as normal/abnormal . [facility] HospitalKzqunnaQIMMWGMKQM1513-77-80 08:31:00 Test Item Value Reference Range Interpretation Comments Monocytes # (test code 0.4 See_Comment [Aut omated message] The = Monocytes #) system which generated this result tra nsmitted reference range : <=0.8. The reference r fernando was not used to int erpret this result as normal/abnormal . [facility] [id number] 06:00:00 Test Item Value Reference Range Interpretation Comments BNP (test code = BNP) 188 [facility] HospitalCHEM [id number] 06:00:00 Test Item Value Reference Range Interpretation Comments Phosphorus (test code = Phosphorus) 2.7 2.5-4.5 [facility] HospitalCHEM [id number] 06:00:00 Test Item Value Reference Range Interpretation Comments Calcium Lvl (test code = Calcium Lvl) 8.8 8.5-10.5 [facility]2018-06-17 06:00:00 Test Item Value Reference Range Interpretation Comments Chloride Lvl (test code = Chloride Lvl) 84 95-109 [facility]2018-06-17 06:00:00 Test Item Value Reference Range Interpretation Comments AGAP (test code = AGAP) 12.4 10.0-20.0 [facility]2018-06-17 06:00:00 Test Item Value Reference Range Interpretation Comments CO2 (test code = CO2) 37 24-32 [facility]2018-06-17 06:00:00 Test Item Value Reference Range Interpretation Comments eGFR (test code = eGFR) 88 [facility]2018-06-17 06:00:00 Test Item Value Reference Range Interpretation Comments Glucose Lvl (test code = Glucose Lvl) 146 70-99 [facility]2018-06-17 06:00:00 Test Item Value Reference Range Interpretation Comments BUN (test code = BUN) 13 7-22 [facility]2018-06-17 06:00:00 Test Item Value Reference Range Interpretation Comments Creatinine Lvl (test code = Creatinine 0.57 0.50-1.40 Lvl) [facility]2018-06-17 06:00:00 Test Item Value Reference Range Interpretation Comments Sodium Lvl (test code = Sodium Lvl) 130 135-145 [facility]2018-06-17 06:00:00 Test Item Value Reference Range Interpretation Comments Potassium Lvl (test code = Potassium 3.4 3.5-5.1 Lvl) [facility]2018-06-17 06:00:00 Test Item Value Reference Range Interpretation Comments Magnesium Lvl (test code = Magnesium 2.0 1.8-2.4 Lvl) [facility]2018-06-16 15:56:00 Test Item Value Reference Range Interpretation Comments U Osmolality (test code = U Osmolality) 311 300-800 [facility]2018-06-16 15:56:00 Test Item Value Reference Range Interpretation Comments U Creatinine (test code = U Creatinine) 10.70 [facility]2018-06-16 15:56:00 Test Item Value Reference Range Interpretation Comments U Sodium (test code = U Sodium) 84 [facility]2018-06-16 15:56:00 Test Item Value Reference Range Interpretation Comments U Potassium (test code = U Potassium) 42.2 [facility]2018-06-16 15:56:00 Test Item Value Reference Range Interpretation Comments U Chloride (test code = U Chloride) 118 [facility] HospitalOpvzzwiAUHGYDHIJW7614-36-04 05:11:00 Test Item Value Reference Range Interpretation Comments MPV (test code = MPV) 8.2 7.4-10.4 [facility] HospitalMlpbxhbFUNTNDNYNU8647-80-99 05:11:00 Test Item Value Reference Range Interpretation Comments MCV (test code = MCV) 81.1 80.0-98.0 [facility] HospitalPjlyislRRYKDROYEW2955-35-14 05:11:00 Test Item Value Reference Range Interpretation Comments MCH (test code = MCH) 27.7 pg 27.0-31.0 [id number] 05:11:00 Test Item Value Reference Range Interpretation Comments RBC (test code = RBC) 3.46 4.20-5.40 [facility] HospitalQxecrjcBLMZRMWMNI2326-15-53 05:11:00 Test Item Value Reference Range Interpretation Comments Hct (test code = Hct) 28.1 36.0-48.0 [facility] HospitalNogemdsCVHPEMZKGB4747-14-51 05:11:00 Test Item Value Reference Range Interpretation Comments Hgb (test code = Hgb) 9.6 12.0-16.0 [facility] H[id number] 05:11:00 Test Item Value Reference Range Interpretation Comments WBC (test code = WBC) 8.2 3.7-10.4 [facility] [id number] 05:11:00 Test Item Value Reference Range Interpretation Comments Ca Ion WB (test code = Ca Ion WB) 1.05 1.05-1.25 [facility] [id number] 05:11:00 Test Item Value Reference Range Interpretation Comments Ca Norm WB (test code = Ca Norm WB) 1.12 1.05-1.25 [facility]2018-06-16 05:11:00 Test Item Value Reference Range Interpretation Comments Osmolality (test code = Osmolality) 269 280-300 [facility]2018-06-16 05:11:00 Test Item Value Reference Range Interpretation Comments Magnesium Lvl (test code = Magnesium 1.6 1.8-2.4 Lvl) [facility]2018-06-16 05:11:00 Test Item Value Reference Range Interpretation Comments Phosphorus (test code = Phosphorus) 2.3 2.5-4.5 [facility] Hospit[id number] 05:11:00 Test Item Value Reference Range Interpretation Comments Segs-Bands # (test code = Segs-Bands #) 6.2 1.5-8.1 [facility] HospitalQiuiqbhCFQLVJTRAP9179-36-32 05:11:00 Test Item Value Reference Range Interpretation Comments Lymphocytes # (test code = Lymphocytes 1.1 1.0-5.5 #) [facility] HospitalIwjqmfcNSPVCWSHJJ4046-44-70 05:11:00 Test Item Value Reference Range Interpretation Comments Basophils (test code = 0.2 See_Comment [Aut omated message] The Basophils) system which ge nerated this result tra nsmitted reference range : <=1.0. The reference r fernando was not used to int erpret this result as normal/abnormal . [facility] HospitalNialubrIGFNPYMODF0600-49-53 05:11:00 Test Item Value Reference Range Interpretation Comments Eosinophils (test code = 2.3 See_Comment [A utomated message] The Eosinophils) system which ge nerated this result tra nsmitted reference range : <=4.0. The reference r fernando was not used to int erpret this result as normal/abnormal . [facility] HospitalBdhuqlpZJTGXIPZMV6604-93-10 05:11:00 Test Item Value Reference Range Interpretation Comments Monocytes (test code = Monocytes) 8.1 2.0-12.0 [facility] HospitalMieqzpcCNKXXJJGFG1891-93-09 05:11:00 Test Item Value Reference Range Interpretation Comments Lymphocytes (test code = Lymphocytes) 13.8 20.0-40.0 [facility] HospitalRuvbxtpZZWQJBHXTC5122-00-09 05:11:00 Test Item Value Reference Range Interpretation Comments Segs (test code = Segs) 75.6 45.0-75.0 [facility] HospitalWmclvtnYBVEKDTGYF9141-50-05 05:11:00 Test Item Value Reference Range Interpretation Comments Eosinophils # (test code 0.2 See_Comment [A utomated message] The = Eosinophils #) system whic h generated this result tra nsmitted reference range : <=0.5. The reference r fernando was not used to int erpret this result as normal/abnormal . [facility] HospitalZhjfalgPPXJYXCMVR1022-52-16 05:11:00 Test Item Value Reference Range Interpretation Comments Monocytes # (test code 0.7 See_Comment [Aut omated message] The = Monocytes #) system which generated this result tra nsmitted reference range : <=0.8. The reference r fernando was not used to int erpret this result as normal/abnormal . [facility] HospitalRjwicdrOIWTDSJUIB8014-00-06 05:11:00 Test Item Value Reference Range Interpretation Comments Platelet (test code = Platelet) 185 133-450 [facility] HospitalCnontcfZFVDLBPLMJ9780-19-50 05:11:00 Test Item Value Reference Range Interpretation Comments RDW (test code = RDW) 15.0 11.5-14.5 [facility] HospitalAkwgvauBQRKGYEAQQ4746-51-75 05:11:00 Test Item Value Reference Range Interpretation Comments MCHC (test code = MCHC) 34.1 32.0-36.0 [facility] HospitalHymcxhbMYOWDGEVOD6797-22-15 05:37:00 Test Item Value Reference Range Interpretation Comments Segs (test code = Segs) 84.3 45.0-75.0 [facility] HospitalWecpwzyTEMVDBLTZD1539-26-80 05:37:00 Test Item Value Reference Range Interpretation Comments Lymphocytes (test code = Lymphocytes) 7.4 20.0-40.0 [facility] HospitalOicqmxsTZXVXRSTZY9086-50-20 05:37:00 Test Item Value Reference Range Interpretation Comments Eosinophils # (test code 0.1 See_Comment [A utomated message] The = Eosinophils #) system [facility] generated this result tra nsmitted reference range : <=0.5. The reference r fernando was not used to int erpret this result as normal/abnormal . [facility] HospitalEdtdmczZAJIFBQGQU5821-27-10 05:37:00 Test Item Value Reference Range Interpretation Comments Lymphocytes # (test code = Lymphocytes 0.6 1.0-5.5 #) [facility] HospitalIbdlmlwMNYFPSKTEF5006-84-93 05:37:00 Test Item Value Reference Range Interpretation Comments Monocytes # (test code 0.5 See_Comment [Aut omated message] The = Monocytes #) system which generated this result tra nsmitted reference range : <=0.8. The reference r fernando was not used to int erpret this result as normal/abnormal . [facility] HospitalWlnluwsPTTUEMTSDF9977-31-15 05:37:00 Test Item Value Reference Range Interpretation Comments Monocytes (test code = Monocytes) 6.7 2.0-12.0 [facility] HospitalRdpatrbKTAWXWBSGF9435-06-89 05:37:00 Test Item Value Reference Range Interpretation Comments Eosinophils (test code = 1.4 See_Comment [A utomated message] The Eosinophils) system which ge nerated this result tra nsmitted reference range : <=4.0. The reference r fernando was not used to int erpret this result as normal/abnormal . [facility] HospitalNxztnrjYHEQXKOGGZ8527-31-15 05:37:00 Test Item Value Reference Range Interpretation Comments Basophils (test code = 0.2 See_Comment [Aut omated message] The Basophils) system which ge nerated this result tra nsmitted reference range : <=1.0. The reference r fernando was not used to int erpret this result as normal/abnormal . [facility] HospitalCvdqwicMCUTXKMJDI7859-99-37 05:37:00 Test Item Value Reference Range Interpretation Comments Segs-Bands # (test code = Segs-Bands #) 6.3 1.5-8.1 [facility] HospitalDbiucndAWLAEZDOSE0400-93-28 05:37:00 Test Item Value Reference Range Interpretation Comments MCV (test code = MCV) 82.1 80.0-98.0 [facility] HospitalQvlmjxaOFLGNWRAMB5771-23-89 05:37:00 Test Item Value Reference Range Interpretation Comments Hct (test code = Hct) 27.1 36.0-48.0 [facility] Hos[id number] 05:37:00 Test Item Value Reference Range Interpretation Comments MCHC (test code = MCHC) 34.5 32.0-36.0 [facility] Hospit[id number] 05:37:00 Test Item Value Reference Range Interpretation Comments MCH (test code = MCH) 28.3 pg 27.0-31.0 [facility] HospitalTzuqscoOMGBLGWLDJ5614-13-92 05:37:00 Test Item Value Reference Range Interpretation Comments RBC (test code = RBC) 3.29 4.20-5.40 [facility] HospitalSpbdoyhPNSRKLJOBA6198-66-24 05:37:00 Test Item Value Reference Range Interpretation Comments WBC (test code = WBC) 7.5 3.7-10.4 [facility] HospitalLpueqebHTAKCKDUYD5771-09-56 05:37:00 Test Item Value Reference Range Interpretation Comments RDW (test code = RDW) 15.1 11.5-14.5 [facility] HospitalKndxdlpWYTBMOLCWW7434-77-57 05:37:00 Test Item Value Reference Range Interpretation Comments Platelet (test code = Platelet) 191 133-450 [facility] HospitalRxymrcgLVTGCYYXIG2385-25-26 05:37:00 Test Item Value Reference Range Interpretation Comments MPV (test code = MPV) 7.8 7.4-10.4 [facility] HospitalKuthbynQFCAQEIASR3450-37-23 05:37:00 Test Item Value Reference Range Interpretation Comments Hgb (test code = Hgb) 9.3 12.0-16.0 [facility]2018-06-15 05:37:00 Test Item Value Reference Range Interpretation Comments Ca Norm WB (test code = Ca Norm WB) 1.08 1.05-1.25 [facility]2018-06-15 05:37:00 Test Item Value Reference Range Interpretation Comments Ca Ion WB (test code = Ca Ion WB) 1.04 1.05-1.25 [facility]2018-06-14 11:46:00 Test Item Value Reference Range Interpretation Comments A/G Ratio (test code = A/G Ratio) 0.6 1 0.7-1.6 [facility]2018-06-14 11:46:00 Test Item Value Reference Range Interpretation Comments Globulin (test code = Globulin) 3.6 2.7-4.2 [facility]2018-06-14 11:46:00 Test Item Value Reference Range Interpretation Comments Bili Indirect (test 0.4 See_Comment [Automa timur message] The code = Bili Indirect) system which generated this result tra nsmitted reference range : <=1.0. The reference r fernando was not used to int erpret this result as normal/abnormal . [facility]2018-06-14 11:46:00 Test Item Value Reference Range Interpretation Comments Bili Direct (test code 0.7 See_Comment [Aut omated message] The = Bili Direct) system which generated this result tra nsmitted reference range : <=0.3. The reference r fernando was not used to int erpret this result as jasmyne l/abnormal. [facility]2018-06-14 11:46:00 Test Item Value Reference Range Interpretation Comments Alk Phos (test code = Alk Phos) 276 39-136 [facility]2018-06-14 11:46:00 Test Item Value Reference Range Interpretation Comments AST (test code = AST) 44 See_Comment [Auto mated message] The system which ge nerated this result transmit timur reference range : <=37. The reference range was not used to interpr et this result as jasmyne l/abnormal. [facility]2018-06-14 11:46:00 Test Item Value Reference Range Interpretation Comments ALT (test code = ALT) 54 See_Comment [Auto mated message] The system which ge nerated this result transmit timur reference range : <=65. The reference range was not used to interpr et this result as jasmyne l/abnormal. [facility]2018-06-14 11:46:00 Test Item Value Reference Range Interpretation Comments Albumin Lvl (test code = Albumin Lvl) 2.3 3.5-5.0 [facility]2018-06-14 11:46:00 Test Item Value Reference Range Interpretation Comments Total Protein (test code = Total 5.9 6.4-8.4 Protein) [facility]2018-06-14 11:46:00 Test Item Value Reference Range Interpretation Comments Bili Total (test code = Bili Total) 1.1 0.2-1.3 [place] [id number] 11:46:00 Test Item Value Reference Range Interpretation Comments Aldosterone (test code = no gt See_Comment [A utomated message] The Aldosterone) system which ge nerated this result tra nsmitted reference range : <=30.0. The reference r fernando was not used to int erpret this result as normal/abnormal . [place] [id number] 11:46:00 Test Item Value Reference Range Interpretation Comments Renin Activity (test code = Renin 0.527 0.167-5.380 Activity) [facility] [id number] 11:46:00 Test Item Value Reference Range Interpretation Comments UA Urobilinogen (test code = UA <=1.0 mg/dL 0.1-1.0 Urobilinogen) [facility] AND [id number] 11:46:00 Test Item Value Reference Range Interpretation Comments UA Mucus (test code = UA Mucus) Few /LPF [facility] AND [id number] 11:46:00 Test Item Value Reference Range Interpretation Comments UA Sq Epi (test code = UA Sq Occasional /LPF Epi) [facility] AND [id number] 11:46:00 Test Item Value Reference Range Interpretation Comments UA Nitrite (test code Negative (02/22/18 6:46 = UA Nitrite) AM) [facility] AND [id number] 11:46:00 Test Item Value Reference Range Interpretation Comments UA Hyal Cast (test 1 See_Comment [Automat ed message] The code = UA Hyal Cast) system which generated this result transmit timur reference range : <=2. The reference range was not used to interpr et this result as jasmyne l/abnormal. [facility] AND [id number] 11:46:00 Test Item Value Reference Range Interpretation Comments UA RBC (test code = 1 See_Comment [Automa timur message] The UA RBC) system which ge nerated this result transmit timur reference range : <=2. The reference range was not used to interpr et this result as jasmyne l/abnormal. [facility] [id number] 11:46:00 Test Item Value Reference Range Interpretation Comments UA Leuk Est (test Negative (02/22/18 6:46 code = UA Leuk Est) AM) [facility] AND [id number] 11:46:00 Test Item Value Reference Range Interpretation Comments UA WBC (test code = 3 See_Comment [Automa timur message] The UA WBC) system which ge nerated this result transmit timur reference range : <=5. The reference range was not used to interpr et this result as jasmyne l/abnormal. [facility] [id number] 11:46:00 Test Item Value Reference Range Interpretation Comments UA Turbidity (test code Slight *ABN*(02/22/18 = UA Turbidity) 6:46 AM) [facility] AND [id number] 11:46:00 Test Item Value Reference Range Interpretation Comments UA Color (test code = Yellow *NA*(02/22/18 UA Color) 6:46 AM) [facility] AND [id number] 11:46:00 Test Item Value Reference Range Interpretation Comments UA pH (test code = UA pH) 6.0 1 5.0-8.0 [facility] AND [id number] 11:46:00 Test Item Value Reference Range Interpretation Comments UA Ketones (test code = UA Negative mg/dL Ketones) [facility] AND [id number] 11:46:00 Test Item Value Reference Range Interpretation Comments UA Protein (test code = UA Protein) 20 mg/dL [facility] AND [id number] 11:46:00 Test Item Value Reference Range Interpretation Comments UA Spec Grav (test code = UA Spec 1.011 1 Grav) [facility] AND [id number] 11:46:00 Test Item Value Reference Range Interpretation Comments UA Glucose (test code = UA Glucose) 70 mg/dL [facility] AND [id number] 11:46:00 Test Item Value Reference Range Interpretation Comments UA Bili (test code = Negative *NA*(02/22/18 UA Bili) 6:46 AM) [facility] AND [id number] 11:46:00 Test Item Value Reference Range Interpretation Comments UA Blood (test code = Negative (02/22/18 6:46 UA Blood) AM) [facility]2018-06-14 11:46:00 Test Item Value Reference Range Interpretation Comments U Creatinine (test code = U Creatinine) 22.10 [facility]2018-06-14 11:46:00 Test Item Value Reference Range Interpretation Comments U Chloride (test code = U Chloride) 155 [facility]2018-06-14 11:46:00 Test Item Value Reference Range Interpretation Comments U Potassium (test code = U Potassium) 61.1 [facility]2018-06-14 11:46:00 Test Item Value Reference Range Interpretation Comments U Sodium (test code = U Sodium) 98 [facility]2018-06-14 04:44:00 Test Item Value Reference Range Interpretation Comments Magnesium Lvl (test code = Magnesium 2.4 1.8-2.4 Lvl) [facility]2018-06-14 04:44:00 Test Item Value Reference Range Interpretation Comments Phosphorus (test code = Phosphorus) 2.6 2.5-4.5 [facility]2018-06-14 04:44:00 Test Item Value Reference Range Interpretation Comments Ca Ion WB (test code = Ca Ion WB) 1.06 1.05-1.25 [facility]2018-06-14 04:44:00 Test Item Value Reference Range Interpretation Comments Ca Norm WB (test code = Ca Norm WB) 1.09 1.05-1.25 [facility]2018-06-13 22:33:00 Test Item Value Reference Range Interpretation Comments Lactic Acid Lvl (test code = Lactic 1.4 0.5-2.2 Acid Lvl) [facility]2018-06-13 20:03:00 Test Item Value Reference Range Interpretation Comments U Osmolality (test code = U Osmolality) 360 300-800 [facility]2018-06-13 20:03:00 Test Item Value Reference Range Interpretation Comments U Sodium (test code = U Sodium) 88 [facility]2018-06-13 15:44:00 Test Item Value Reference Range Interpretation Comments Albumin Lvl (test code = Albumin Lvl) 2.6 3.5-5.0 [facility]2018-06-13 15:44:00 Test Item Value Reference Range Interpretation Comments Total Protein (test code = Total 6.7 6.4-8.4 Protein) [facility]2018-06-13 15:44:00 Test Item Value Reference Range Interpretation Comments B/C Ratio (test code = B/C Ratio) 12 1 6-25 [facility]2018-06-13 15:44:00 Test Item Value Reference Range Interpretation Comments ALT (test code = ALT) 67 See_Comment [Auto mated message] The system which ge nerated this result transmit timur reference range : <=65. The reference range was not used to interpr et this result as jasmyne l/abnormal. [facility]2018-06-13 15:44:00 Test Item Value Reference Range Interpretation Comments Bili Total (test code = Bili Total) 1.2 0.2-1.3 [facility]2018-06-13 15:44:00 Test Item Value Reference Range Interpretation Comments AST (test code = AST) 77 See_Comment [Auto mated message] The system which ge nerated this result transmit timur reference range : <=37. The reference range was not used to interpr et this result as jasmyne l/abnormal. [facility] [employer] [id number] 15:44:00 Test Item Value Reference Range Interpretation Comments A/G Ratio (test code = A/G Ratio) 0.6 1 0.7-1.6 [facility] [employer] [id number] 15:44:00 Test Item Value Reference Range Interpretation Comments Alk Phos (test code = Alk Phos) 269 39-136 [facility] [employer] [id number] 15:44:00 Test Item Value Reference Range Interpretation Comments Globulin (test code = Globulin) 4.1 2.7-4.2 [facility] [employer] [id number] 15:44:00 Test Item Value Reference Range Interpretation Comments Osmolality (test code = Osmolality) 270 280-300 [facility] [id number] 08:30:00 Test Item Value Reference Range Interpretation Comments Hgb A1C (test code = Hgb A1C) 6.5 [facility] [employer] [id number] 06:01:00 Test Item Value Reference Range Interpretation Comments proBNP (test code = 4235 See_Comment [Automa timur message] The proBNP) system which ge nerated this result tra nsmitted reference range : <=450. The reference r fernando was not used to int erpret this result as jasmyne l/abnormal. [facility] [employer] [id number] 06:01:00 Test Item Value Reference Range Interpretation Comments BNP (test code = BNP) 345 [facility] [employer] [id number] 06:01:00 Test Item Value Reference Range Interpretation Comments Lactic Acid Lvl (test code = Lactic 1.7 0.5-2.2 Acid Lvl) [facility] [employer] [id number] 06:01:00 Test Item Value Reference Range Interpretation Comments Procalcitonin Lvl (test 0.41 See_Comment [Au tomated message] code = Procalcitonin Lvl) Th e system which generated this result transmitted ref erence range: <=0.10. The reference range was not used to interpr et this result as normal/abnormal . [employer] [id number] 11:57:00 Test Item Value Reference Range Interpretation Comments Bili Indirect (test 0.4 See_Comment [Automa timur message] The code = Bili Indirect) system which generated this result tra nsmitted reference range : <=1.0. The reference r fernando was not used to int erpret this result as normal/abnormal . [facility]2018-06-12 11:57:00 Test Item Value Reference Range Interpretation Comments Bili Total (test code = Bili Total) 0.7 0.2-1.3 [facility]2018-06-12 11:57:00 Test Item Value Reference Range Interpretation Comments Bili Direct (test code 0.3 See_Comment [Aut omated message] The = Bili Direct) system which generated this result tra nsmitted reference range : <=0.3. The reference r fernando was not used to int erpret this result as jasmyne l/abnormal. [facility]2018-06-12 11:57:00 Test Item Value Reference Range Interpretation Comments AST (test code = AST) 87 See_Comment [Auto mated message] The system which ge nerated this result transmit timur reference range : <=37. The reference range was not used to interpr et this result as jasmyne l/abnormal. [facility]2018-06-12 11:57:00 Test Item Value Reference Range Interpretation Comments ALT (test code = ALT) 56 See_Comment [Auto mated message] The system which ge nerated this result transmit timur reference range : <=65. The reference range was not used to interpr et this result as jasmyne l/abnormal. [facility]2018-06-12 11:57:00 Test Item Value Reference Range Interpretation Comments Alk Phos (test code = Alk Phos) 162 39-136 [facility]2018-06-12 11:57:00 Test Item Value Reference Range Interpretation Comments Albumin Lvl (test code = Albumin Lvl) 2.5 3.5-5.0 [facility]2018-06-12 11:57:00 Test Item Value Reference Range Interpretation Comments Total Protein (test code = Total 6.0 6.4-8.4 Protein) [facility]2018-06-12 11:57:00 Test Item Value Reference Range Interpretation Comments Globulin (test code = Globulin) 3.5 2.7-4.2 [facility]CHEM [id number] 11:57:00 Test Item Value Reference Range Interpretation Comments A/G Ratio (test code = A/G Ratio) 0.7 1 0.7-1.6 [facility]CHEM [id number] 11:57:00 Test Item Value Reference Range Interpretation Comments Procalcitonin Lvl (test 0.35 See_Comment [Au tomated message] code = Procalcitonin Lvl) Th e system which generated this result transmitted ref erence range: <=0.10. The reference range was not used to interpr et this result as normal/abnormal . [facility] [id number] 17:56:00 Test Item Value Reference Range Interpretation Comments MRSA by PCR (test Negative (02/19/18 12:56 code = MRSA by PCR) PM) [facility] AND [id number] 11:34:00 Test Item Value Reference Range Interpretation Comments UA Leuk Est (test Moderate *ABN*(02/19/18 code = UA Leuk Est) 6:34 AM) [facility] AND [id number] 11:34:00 Test Item Value Reference Range Interpretation Comments UA Urobilinogen (test code = UA 0.2 0.1-1.0 Urobilinogen) [facility] AND [id number] 11:34:00 Test Item Value Reference Range Interpretation Comments UA Nitrite (test code Positive *ABN*(02/19/18 = UA Nitrite) 6:34 AM) [facility] AND [id number] 11:34:00 Test Item Value Reference Range Interpretation Comments UA pH (test code = UA pH) 8.5 1 5.0-8.0 [facility] AND [id number] 11:34:00 Test Item Value Reference Range Interpretation Comments UA Protein (test code Negative (02/19/18 6:34 = UA Protein) AM) [facility] AND [id number] 11:34:00 Test Item Value Reference Range Interpretation Comments UA Glucose (test code Negative (02/19/18 6:34 = UA Glucose) AM) [facility] AND [id number] 11:34:00 Test Item Value Reference Range Interpretation Comments UA Blood (test code = Negative (02/19/18 6:34 UA Blood) AM) [facility] AND [id number] 11:34:00 Test Item Value Reference Range Interpretation Comments UA Ketones (test code Negative *NA*(02/19/18 = UA Ketones) 6:34 AM) [facility] AND [id number] 11:34:00 Test Item Value Reference Range Interpretation Comments UA Bili (test code = Negative *NA*(02/19/18 UA Bili) 6:34 AM) [facility] AND [id number] 11:34:00 Test Item Value Reference Range Interpretation Comments UA Color (test code = Yellow *NA*(02/19/18 UA Color) 6:34 AM) [facility] AND [id number] 11:34:00 Test Item Value Reference Range Interpretation Comments UA Spec Grav (test code = UA Spec 1.010 1 Grav) [facility] AND [id number] 11:34:00 Test Item Value Reference Range Interpretation Comments UA Turbidity (test code = Clear (02/19/18 6:34 UA Turbidity) AM) [facility] AND [id number] 11:34:00 Test Item Value Reference Range Interpretation Comments UA Amorph Aliya (test code = Occasional /HPF UA Amorph Aliya) [facility] AND [id number] 11:34:00 Test Item Value Reference Range Interpretation Comments UA Sq Epi (test code = UA Sq Occasional /LPF Epi) [facility] AND [id number] 11:34:00 Test Item Value Reference Range Interpretation Comments UA WBC (test code = 28 See_Comment [Automa timur message] The UA WBC) system which ge nerated this result transmit timur reference range : <=5. The reference range was not used to interpr et this result as jasmyne l/abnormal. [facility] AND [id number] 11:34:00 Test Item Value Reference Range Interpretation Comments UA RBC (test code = 8 See_Comment [Automa timur message] The UA RBC) system which ge nerated this result transmit timur reference range : <=2. The reference range was not used to interpr et this result as jasmyne l/abnormal. [facility] AND [id number] 11:34:00 Test Item Value Reference Range Interpretation Comments UA Mucus (test code = UA Mucus) Moderate /LPF [facility] [id number] 10:49:00 Test Item Value Reference Range Interpretation Comments Troponin-T (test code no gt See_Comment [Auto mated message] The = Troponin-T) system which g enerated this result transmit timur reference range : <=0.100. The reference r fernando was not used to interpr et this result as jasmyne l/abnormal. [facility]fmwevzKBTEETGDDB9471-81-39 10:49:00 Test Item Value Reference Range Interpretation Comments Plav Effect Plt (test code = Plav 281 Effect Plt) [facility] HospitalZjjgugrQZWWJRUMRJ8385-32-41 10:49:00 Test Item Value Reference Range Interpretation Comments ASA Effect Plt (test code = ASA Effect 565 Plt) [facility] [id number] 10:06:00 Test Item Value Reference Range Interpretation Comments Troponin-I (test code 0.04 See_Comment [Auto mated message] The = Troponin-I) system which g enerated this result transmit timur reference range : <=0.40. The reference r fernando was not used to interpr et this result as jasmyne l/abnormal. [facility] [facility] centerZeePearl BANNER [id number] 09:31:00 Test Item Value Reference Range Interpretation Comments FFP product (test code Product available = FFP product) (02/19/18 4:31 AM) [facility] [facility] centerCHEM [id number] 08:36:00 Test Item Value Reference Range Interpretation Comments Lactic Acid Lvl (test code = Lactic 1.7 0.5-2.2 Acid Lvl) [facility] [employer] [id number] 08:31:00 Test Item Value Reference Range Interpretation Comments Antibody Scrn (test Negative (02/19/18 3:31 code = Antibody Scrn) AM) [facility] [employer] [id number] 08:31:00 Test Item Value Reference Range Interpretation Comments ABO/Rh (test code = ABO/Rh) A POS [facility] HospitalXzypwblLLYQTSUMCH5769-04-26 08:31:00 Test Item Value Reference Range Interpretation Comments PTT (test code = PTT) 51.4 s 22.9-35.8 [facility] HospitalIthihftPEVNCJHEUS8651-71-41 08:31:00 Test Item Value Reference Range Interpretation Comments INR (test code = INR) 1.04 1 0.85-1.17 [facility] HospitalVgbfcemDXGXOVLSGL7596-16-84 08:31:00 Test Item Value Reference Range Interpretation Comments PT (test code = PT) 13.6 s 12.0-14.7 [facility] HospitalRwrjcwdQJCWIJGHBK6141-99-62 08:31:00 Test Item Value Reference Range Interpretation Comments K-time Rapid (test code = K-time 0.8 min 0.6-2.3 Rapid) [facility] HospitalSrrtpryLGEGYEVALM9544-54-70 08:31:00 Test Item Value Reference Range Interpretation Comments R-time Rapid (test code = R-time 0.6 min 0.4-0.7 Rapid) [facility] HospitalAhkarvsGGUVJSRVKT8906-88-73 08:31:00 Test Item Value Reference Range Interpretation Comments Split Point Rapid (test code = Split 0.5 min Point Rapid) [facility] HospitalUlmussbMRWBJLUOFV9400-31-81 08:31:00 Test Item Value Reference Range Interpretation Comments ACT (TEG) Rapid (test code = ACT (TEG) 105 s 86-118 Rapid) [facility] HospitalBoylhctNSOGVCDKMC9528-66-98 08:31:00 Test Item Value Reference Range Interpretation Comments G-value Rapid (test code = G-value 17.0 5.0-11.6 Rapid) [facility] HospitalNpscgfrOFDFFJTZGK3345-81-40 08:31:00 Test Item Value Reference Range Interpretation Comments Estimated % Lysis Rapid 1.2 See_Comment [Au tomated message] The (test code = Estimated syste m which generated % Lysis Rapid) this result t ransmitted reference range : <=7.5. The reference r fernando was not used to int erpret this result as normal/abnormal . [facility] HospitalMgzsaydQGWFKVFAUI1489-00-61 08:31:00 Test Item Value Reference Range Interpretation Comments Angle Rapid (test code = Angle 81 degrees 64-80 Rapid) [facility] HospitalHywlaqpTVSUQOOMCE7739-09-34 08:31:00 Test Item Value Reference Range Interpretation Comments Max Amplitude Rapid (test code = Max 77 mm 52-71 Amplitude Rapid) [facility]icsHvifiwsQKVKKRXWZIPV1827-04-27 13:38:00 Test Item Value Reference Range Interpretation Comments Potassium Lvl (test code = Potassium 3.4 3.5-5.1 Lvl) [facility]2018-06-04 10:51:00 Test Item Value Reference Range Interpretation Comments Calcium Lvl (test code = Calcium Lvl) 8.7 8.5-10.5 [facility]2018-06-04 10:51:00 Test Item Value Reference Range Interpretation Comments AGAP (test code = AGAP) 14.9 10.0-20.0 [facility]2018-06-04 10:51:00 Test Item Value Reference Range Interpretation Comments Glucose Lvl (test code = Glucose Lvl) 110 70-99 [facility]2018-06-04 10:51:00 Test Item Value Reference Range Interpretation Comments CO2 (test code = CO2) 27 24-32 [facility]2018-06-04 10:51:00 Test Item Value Reference Range Interpretation Comments Creatinine Lvl (test code = Creatinine 0.62 0.50-1.40 Lvl) [facility]2018-06-04 10:51:00 Test Item Value Reference Range Interpretation Comments BUN (test code = BUN) 6 7-22 [facility]2018-06-04 10:51:00 Test Item Value Reference Range Interpretation Comments Sodium Lvl (test code = Sodium Lvl) 140 135-145 [facility]2018-06-04 10:51:00 Test Item Value Reference Range Interpretation Comments Potassium Lvl (test code = Potassium 2.9 3.5-5.1 Lvl) [facility]2018-06-04 10:51:00 Test Item Value Reference Range Interpretation Comments Chloride Lvl (test code = Chloride Lvl) 101 95-109 [facility]2018-06-04 10:51:00 Test Item Value Reference Range Interpretation Comments eGFR (test code = eGFR) 85 [facility]tdwxegIBJGFBKJOAUU3567-41-46 05:33:00 Test Item Value Reference Range Interpretation Comments Sodium Lvl (test code = Sodium Lvl) 140 135-145 [facility]HdihllqXJKPSXSJQKDY7262-68-61 05:33:00 Test Item Value Reference Range Interpretation Comments Potassium Lvl (test code = Potassium 4.1 3.5-5.1 Lvl) [facility]UudnjkrULWHQJIHXMBC1847-78-87 18:24:00 Test Item Value Reference Range Interpretation Comments Sodium Lvl (test code = Sodium Lvl) 137 135-145 [facility]2018-06-01 05:20:00 Test Item Value Reference Range Interpretation Comments eGFR (test code = eGFR) 86 [facility]2018-06-01 05:20:00 Test Item Value Reference Range Interpretation Comments Chloride Lvl (test code = Chloride Lvl) 103 95-109 [facility]2018-06-01 05:20:00 Test Item Value Reference Range Interpretation Comments CO2 (test code = CO2) 24 24-32 [facility]2018-06-01 05:20:00 Test Item Value Reference Range Interpretation Comments AGAP (test code = AGAP) 15.0 10.0-20.0 [facility]2018-06-01 05:20:00 Test Item Value Reference Range Interpretation Comments Calcium Lvl (test code = Calcium Lvl) 8.7 8.5-10.5 [facility]2018-06-01 05:20:00 Test Item Value Reference Range Interpretation Comments BUN (test code = BUN) 8 7-22 [facility]2018-06-01 05:20:00 Test Item Value Reference Range Interpretation Comments Creatinine Lvl (test code = Creatinine 0.62 0.50-1.40 Lvl) [facility]2018-06-01 05:20:00 Test Item Value Reference Range Interpretation Comments Glucose Lvl (test code = Glucose Lvl) 169 70-99 [facility] HospitalIcnwwtzEBDXXKYEJE2833-56-05 05:20:00 Test Item Value Reference Range Interpretation Comments Lymphocytes # (test code = Lymphocytes 1.6 1.0-5.5 #) [facility] HospitalPvvwrjzPFSTZEQUNU4601-84-83 05:20:00 Test Item Value Reference Range Interpretation Comments Segs-Bands # (test code = Segs-Bands #) 6.7 1.5-8.1 [facility] HospitalQybyadqRKIQOKCDIE2407-34-08 05:20:00 Test Item Value Reference Range Interpretation Comments Monocytes # (test code 0.8 See_Comment [Aut omated message] The = Monocytes #) system which generated this result tra nsmitted reference range : <=0.8. The reference r fernando was not used to int erpret this result as normal/abnormal . [facility] HospitalBrbazfuUEJEMWLOGU0930-98-41 05:20:00 Test Item Value Reference Range Interpretation Comments Eosinophils # (test code 0.1 See_Comment [A utomated message] The = Eosinophils #) system whic h generated this result tra nsmitted reference range : <=0.5. The reference r fernando was not used to int erpret this result as normal/abnormal . [facility] HospitalNmdhbgbIDVXPZJLVI3925-43-38 05:20:00 Test Item Value Reference Range Interpretation Comments Monocytes (test code = Monocytes) 8.3 2.0-12.0 [facility] HospitalKlryzmmNMCORYJKIA7041-36-84 05:20:00 Test Item Value Reference Range Interpretation Comments Eosinophils (test code = 1.4 See_Comment [A utomated message] The Eosinophils) system which ge nerated this result tra nsmitted reference range : <=4.0. The reference r fernando was not used to int erpret this result as normal/abnormal . [facility] HospitalUnthothSRZVPCUQQD2169-14-73 05:20:00 Test Item Value Reference Range Interpretation Comments Basophils (test code = 0.4 See_Comment [Aut omated message] The Basophils) system which ge nerated this result tra nsmitted reference range : <=1.0. The reference r fernando was not used to int erpret this result as normal/abnormal . [facility] HospitalQacmmarUKBCJWNFTU6864-15-63 05:20:00 Test Item Value Reference Range Interpretation Comments Lymphocytes (test code = Lymphocytes) 17.5 20.0-40.0 [facility] HospitalNgzcpwuOSCWEPBRHQ6418-23-93 05:20:00 Test Item Value Reference Range Interpretation Comments Segs (test code = Segs) 72.4 45.0-75.0 [facility] HospitalYxxechpTTQCXWOBAZ0298-10-96 05:20:00 Test Item Value Reference Range Interpretation Comments MCV (test code = MCV) 83.0 80.0-98.0 [facility] HospitalZntfowdNVJSWILKOR9394-79-05 05:20:00 Test Item Value Reference Range Interpretation Comments MCH (test code = MCH) 28.3 pg 27.0-31.0 [facility] HospitalNthpnmqPQQTQCSVPV3278-99-09 05:20:00 Test Item Value Reference Range Interpretation Comments Hct (test code = Hct) 29.7 36.0-48.0 [facility] HospitalBvqilgoKVAZGNPPXP8627-15-22 05:20:00 Test Item Value Reference Range Interpretation Comments Platelet (test code = Platelet) 257 133-450 [facility] HospitalAalafcgPAMSQRABFJ6028-96-08 05:20:00 Test Item Value Reference Range Interpretation Comments MPV (test code = MPV) 8.3 7.4-10.4 [facility] HospitalVxmmkgsPEULKLCZBM2355-40-51 05:20:00 Test Item Value Reference Range Interpretation Comments RDW (test code = RDW) 15.1 11.5-14.5 [facility] HospitalTedeksbLILELPVHFF9952-82-81 05:20:00 Test Item Value Reference Range Interpretation Comments MCHC (test code = MCHC) 34.1 32.0-36.0 [facility] HospitalAtdqvsmAELMMSQWAB3064-45-33 05:20:00 Test Item Value Reference Range Interpretation Comments RBC (test code = RBC) 3.58 4.20-5.40 [facility] HospitalBxxridsGDAKMAXYQW6956-57-32 05:20:00 Test Item Value Reference Range Interpretation Comments Hgb (test code = Hgb) 10.1 12.0-16.0 [facility] HospitalGuqtkvzYSJYDTYZAP8943-45-24 05:20:00 Test Item Value Reference Range Interpretation Comments WBC (test code = WBC) 9.3 3.7-10.4 [facility] HospitalBmsjxrmNJEQUOFGRU1489-35-00 10:57:00 Test Item Value Reference Range Interpretation Comments PTT (test code = PTT) 48.4 s 22.9-35.8 [facility] HospitalKbwskppWFXDOYKGEK2096-57-28 10:57:00 Test Item Value Reference Range Interpretation Comments INR (test code = INR) 1.17 1 0.85-1.17 [facility] HospitalNpkzyzpWVCSRJRDDR7972-74-09 10:57:00 Test Item Value Reference Range Interpretation Comments PT (test code = PT) 15.0 s 12.0-14.7 [facility] HospitalSdlnhfiESXEBCOJMF9619-73-84 10:57:00 Test Item Value Reference Range Interpretation Comments Ly30 (test code = 2.3 See_Comment [Automate d message] The Ly30) system which ge nerated this result transmit timur reference range : <=7.5. The reference range was not used to interpr et this result as jasmyne l/abnormal. [facility] HospitalSsvzzxtKRMSMIIZUP7172-03-92 10:57:00 Test Item Value Reference Range Interpretation Comments TEG Data (test code = See Note (02/08/18 5:57 TEG Data) AM) [facility] HospitalPrbtcrvTVDPWQKTPC7208-43-62 10:57:00 Test Item Value Reference Range Interpretation Comments Coag Index (test code 4.0 1 See_Comment [Auto mated message] The = Coag Index) system which g enerated this result transmit timur reference range : <=3.0. The reference range was not used to interpr et this result as jasmyne l/abnormal. [facility] HospitalFluyjwhBXMXYBKUKI5088-35-44 10:57:00 Test Item Value Reference Range Interpretation Comments G-value (test code = G-value) 12.6 4.5-11.0 [facility] HospitalCxzwddiXYIRRCNGIE8083-05-90 10:57:00 Test Item Value Reference Range Interpretation Comments Max Amp (test code = Max Amp) 71.6 mm 50.0-70.0 [facility] HospitalGfmxsitIVVZHURDHO1794-74-73 10:57:00 Test Item Value Reference Range Interpretation Comments Angle (test code = Angle) 74.1 degrees 53.0-72.0 [facility] HospitalRpyvrjvCIBCIRTIIY7663-26-78 10:57:00 Test Item Value Reference Range Interpretation Comments K-time (test code = K-time) 1.1 min 1.0-3.0 [facility] HospitalFerypbzVYLAGQCBGZ4670-75-16 10:57:00 Test Item Value Reference Range Interpretation Comments R-time (test code = R-time) 3.3 min 5.0-10.0 [facility] HospitalFogruguKTBWTKBGEO2211-98-52 10:57:00 Test Item Value Reference Range Interpretation Comments TEG Interp (test Thrombelastograph results code = TEG show shortened value of R Interp) and increased values of both Angle Alpha and MA. These findings are suggestive of platelet and enzymatic hypercoagulation which may be seen in early phase of DIC. Monitor for DIC with DIC panel may be indicated. CPT:[id number] [facility] HospitalMEARS Technologies JRBVR8843-60-45 05:45:00 Test Item Value Reference Range Interpretation Comments Magnesium Lvl (test code = Magnesium 2.2 1.8-2.4 Lvl) [facility] HospitalME[facility] UXLXU0938-55-36 05:45:00 Test Item Value Reference Range Interpretation Comments Phosphorus (test code = Phosphorus) 2.1 2.5-4.5 [facility]JjwlzooIAKVZSDZGBQC1613-44-19 05:45:00 Test Item Value Reference Range Interpretation Comments AGAP (test code = AGAP) 13.5 10.0-20.0 [facility]OmkmggcVALCTFGDJDMF9247-89-75 05:45:00 Test Item Value Reference Range Interpretation Comments BUN (test code = BUN) 13 7-22 [facility] HospitalHoykhseAREOWNLDBYHD5680-52-65 05:45:00 Test Item Value Reference Range Interpretation Comments Creatinine Lvl (test code = Creatinine 0.73 0.50-1.40 Lvl) [facility]BpjjoxlBOGIILVYXPTF0541-44-04 05:45:00 Test Item Value Reference Range Interpretation Comments Calcium Lvl (test code = Calcium Lvl) 8.7 8.5-10.5 [facility]XujvqevQLRPKDKDGJUJ3258-54-33 05:45:00 Test Item Value Reference Range Interpretation Comments Chloride Lvl (test code = Chloride Lvl) 105 95-109 [facility]XdwufhxLHDQGFEGZAML9040-00-94 05:45:00 Test Item Value Reference Range Interpretation Comments CO2 (test code = CO2) 24 24-32 [facility]XirrweaNIHSNIKVHEXZ5825-51-17 05:45:00 Test Item Value Reference Range Interpretation Comments eGFR (test code = eGFR) 79 [facility]TmtbqrnJRTTOOXIMWGO7765-73-87 05:45:00 Test Item Value Reference Range Interpretation Comments Glucose Lvl (test code = Glucose Lvl) 139 70-99 [facility] HospitalBayfhiiGVMLJRMLDI3808-08-40 05:45:00 Test Item Value Reference Range Interpretation Comments WBC (test code = WBC) 8.7 3.7-10.4 [facility] HospitalOrnmpjsFXWTOUUGWD9738-53-99 05:45:00 Test Item Value Reference Range Interpretation Comments RDW (test code = RDW) 14.8 11.5-14.5 [facility] HospitalQwkhkhaDBOWYBRSKP6635-78-50 05:45:00 Test Item Value Reference Range Interpretation Comments MCHC (test code = MCHC) 33.8 32.0-36.0 [facility] HospitalWgaouqlHPYJCCEDPI8672-79-72 05:45:00 Test Item Value Reference Range Interpretation Comments MCH (test code = MCH) 28.3 pg 27.0-31.0 [facility] HospitalObinfccTCVXQRATIU2812-61-93 05:45:00 Test Item Value Reference Range Interpretation Comments MPV (test code = MPV) 8.2 7.4-10.4 [facility] HospitalSeucfirPPQLSETLWM9148-83-81 05:45:00 Test Item Value Reference Range Interpretation Comments Platelet (test code = Platelet) 228 133-450 [facility] HospitalHzorrgmAQDOPTPLUT4654-61-56 05:45:00 Test Item Value Reference Range Interpretation Comments Hgb (test code = Hgb) 9.5 12.0-16.0 [facility] HospitalGkzlefnFIYYTREWJY4982-57-59 05:45:00 Test Item Value Reference Range Interpretation Comments Hct (test code = Hct) 28.0 36.0-48.0 [facility] HospitalRfwkpblZROMFENOUR9617-94-91 05:45:00 Test Item Value Reference Range Interpretation Comments MCV (test code = MCV) 83.8 80.0-98.0 [facility] HospitalQbmwfdjSRLWCUXLVM3075-01-67 05:45:00 Test Item Value Reference Range Interpretation Comments RBC (test code = RBC) 3.34 4.20-5.40 [facility] HospitalMzrqucbYJXGWWTSEJ2711-70-91 05:45:00 Test Item Value Reference Range Interpretation Comments Lymphocytes (test code = Lymphocytes) 16.6 20.0-40.0 [facility] HospitalWzfmjskJIWIZACIPF9692-27-43 05:45:00 Test Item Value Reference Range Interpretation Comments Segs (test code = Segs) 73.5 45.0-75.0 [facility] HospitalAhjctutCCTQQISJDM1330-44-42 05:45:00 Test Item Value Reference Range Interpretation Comments Monocytes # (test code 0.8 See_Comment [Aut omated message] The = Monocytes #) system which generated this result tra nsmitted reference range : <=0.8. The reference r fernando was not used to int erpret this result as normal/abnormal . [facility] HospitalUxyfqcsQNHASOCJJA1765-76-09 05:45:00 Test Item Value Reference Range Interpretation Comments Segs-Bands # (test code = Segs-Bands #) 6.4 1.5-8.1 [facility] HospitalGyitflxUEQZFQCBDI2428-18-60 05:45:00 Test Item Value Reference Range Interpretation Comments Basophils (test code = 0.1 See_Comment [Aut omated message] The Basophils) system which ge nerated this result tra nsmitted reference range : <=1.0. The reference r fernando was not used to int erpret this result as normal/abnormal . [facility] HospitalChkixjxVJEPHDVUHJ2556-33-22 05:45:00 Test Item Value Reference Range Interpretation Comments Eosinophils (test code = 0.4 See_Comment [A utomated message] The Eosinophils) system which ge nerated this result tra nsmitted reference range : <=4.0. The reference r fernando was not used to int erpret this result as normal/abnormal . [facility] HospitalDnkgjpoISPBZNIIYT3845-73-40 05:45:00 Test Item Value Reference Range Interpretation Comments Monocytes (test code = Monocytes) 9.4 2.0-12.0 [facility] HospitalNvnqgucMZMHUNWMVN9421-89-52 05:45:00 Test Item Value Reference Range Interpretation Comments Lymphocytes # (test code = Lymphocytes 1.4 1.0-5.5 #) [facility]2018-05-31 05:45:00 Test Item Value Reference Range Interpretation Comments Ca Norm WB (test code = Ca Norm WB) 1.15 1.05-1.25 [facility]2018-05-31 05:45:00 Test Item Value Reference Range Interpretation Comments Ca Ion WB (test code = Ca Ion WB) 1.12 1.05-1.25 [facility]2018-05-30 05:06:00 Test Item Value Reference Range Interpretation Comments Magnesium Lvl (test code = Magnesium 2.4 1.8-2.4 Lvl) [facility]2018-05-30 05:06:00 Test Item Value Reference Range Interpretation Comments Phosphorus (test code = Phosphorus) 2.6 2.5-4.5 [facility] HospitalNrjxjtjWLBUFLHCIB1040-79-54 05:06:00 Test Item Value Reference Range Interpretation Comments PTT (test code = PTT) 52.3 s 22.9-35.8 [facility] HospitalXjxjhcpJRNSRJKOAW1575-77-97 05:06:00 Test Item Value Reference Range Interpretation Comments PT (test code = PT) 14.8 s 12.0-14.7 [facility] HospitalJpqaobjIXIOOGFUPG2719-57-55 05:06:00 Test Item Value Reference Range Interpretation Comments INR (test code = INR) 1.16 1 0.85-1.17 [facility] HospitalNesrghhIUGFXDYZUX4391-29-77 05:06:00 Test Item Value Reference Range Interpretation Comments Estimated % Lysis Rapid 2.0 See_Comment [Au tomated message] The (test code = Estimated syste m which generated % Lysis Rapid) this result t ransmitted reference range : <=7.5. The reference r fernando was not used to int erpret this result as normal/abnormal . [facility] HospitalWqlnzcvRDIIUWGIFY5661-97-30 05:06:00 Test Item Value Reference Range Interpretation Comments R-time Rapid (test code = R-time 0.8 min 0.4-0.7 Rapid) [facility] HospitalHvbqszeQTQDDBLRXP8123-88-46 05:06:00 Test Item Value Reference Range Interpretation Comments K-time Rapid (test code = K-time 0.8 min 0.6-2.3 Rapid) [facility] HospitalQfmhgydWRWFUSOASG5186-56-96 05:06:00 Test Item Value Reference Range Interpretation Comments Split Point Rapid (test code = Split 0.7 min Point Rapid) [facility] HospitalNwfrxbsFKGSMYHQRM4108-62-94 05:06:00 Test Item Value Reference Range Interpretation Comments Angle Rapid (test code = Angle 80 degrees 64-80 Rapid) [facility] HospitalLwzoxopGDIRBTKVVP7585-15-10 05:06:00 Test Item Value Reference Range Interpretation Comments Max Amplitude Rapid (test code = Max 76 mm 52-71 Amplitude Rapid) [facility] HospitalWcsbrlbGFQZZWMLGJ2701-93-83 05:06:00 Test Item Value Reference Range Interpretation Comments ACT (TEG) Rapid (test code = ACT (TEG) 121 s 86-118 Rapid) [facility] HospitalRlkscosPAXEXILUAE0789-99-71 05:06:00 Test Item Value Reference Range Interpretation Comments G-value Rapid (test code = G-value 15.5 5.0-11.6 Rapid) [facility] HospitalBaadxmuCJCPJDURSX0695-38-03 05:06:00 Test Item Value Reference Range Interpretation Comments WBC (test code = WBC) 7.3 3.7-10.4 [facility] HospitalAqwzudcRVYFYVPKMF1671-57-97 05:06:00 Test Item Value Reference Range Interpretation Comments RBC (test code = RBC) 3.28 4.20-5.40 [facility] HospitalOtgvtlhHZSQTOAHEB7530-81-28 05:06:00 Test Item Value Reference Range Interpretation Comments MPV (test code = MPV) 8.0 7.4-10.4 [facility] HospitalJeelahyWLAOWEGWZO2472-91-30 05:06:00 Test Item Value Reference Range Interpretation Comments MCHC (test code = MCHC) 34.8 32.0-36.0 [facility]JjgqxcyHJOIDFBEWV2540-15-37 05:06:00 Test Item Value Reference Range Interpretation Comments RDW (test code = RDW) 14.6 11.5-14.5 [facility] HospitalTupbmajALMWNTBXSQ7212-82-18 05:06:00 Test Item Value Reference Range Interpretation Comments Platelet (test code = Platelet) 228 133-450 [facility] HospitalUqxjtlhHYTSKSBFHU1200-32-87 05:06:00 Test Item Value Reference Range Interpretation Comments MCV (test code = MCV) 82.5 80.0-98.0 [facility] HospitalJjtpwhhOUYJWUFHPJ6523-89-44 05:06:00 Test Item Value Reference Range Interpretation Comments MCH (test code = MCH) 28.7 pg 27.0-31.0 [facility] HospitalWouqhwfCALCUBQMGP2038-60-75 05:06:00 Test Item Value Reference Range Interpretation Comments Hgb (test code = Hgb) 9.4 12.0-16.0 [facility] HospitalGjhwjghASFKYOAAWZ0411-23-18 05:06:00 Test Item Value Reference Range Interpretation Comments Hct (test code = Hct) 27.0 36.0-48.0 [facility] HospitalNmnoulbJYMXFDLFVN3626-90-43 05:06:00 Test Item Value Reference Range Interpretation Comments Monocytes # (test code 0.9 See_Comment [Aut omated message] The = Monocytes #) system which generated this result tra nsmitted reference range : <=0.8. The reference r fernando was not used to int erpret this result as normal/abnormal . [facility] HospitalGbfkwepBAGPQIXURO1227-09-08 05:06:00 Test Item Value Reference Range Interpretation Comments Eosinophils # (test code 0.1 See_Comment [A utomated message] The = Eosinophils #) system whic h generated this result tra nsmitted reference range : <=0.5. The reference r fernando was not used to int erpret this result as normal/abnormal . [facility] HospitalPhoumvkZKVMNIUDWT2230-57-10 05:06:00 Test Item Value Reference Range Interpretation Comments Lymphocytes # (test code = Lymphocytes 1.6 1.0-5.5 #) [facility] HospitalNmnyxaoNMGFQZTEGP1775-38-19 05:06:00 Test Item Value Reference Range Interpretation Comments Segs-Bands # (test code = Segs-Bands #) 4.8 1.5-8.1 [facility] HospitalRlrhayyBWZGOZYEBQ2642-35-47 05:06:00 Test Item Value Reference Range Interpretation Comments Basophils (test code = 0.1 See_Comment [Aut omated message] The Basophils) system which ge nerated this result tra nsmitted reference range : <=1.0. The reference r fernando was not used to int erpret this result as normal/abnormal . [facility] HospitalCajvzgpVBWRSHJILP7141-14-10 05:06:00 Test Item Value Reference Range Interpretation Comments Monocytes (test code = Monocytes) 12.4 2.0-12.0 [facility] HospitalVkswwipIKPNPPHEJZ6945-13-80 05:06:00 Test Item Value Reference Range Interpretation Comments Eosinophils (test code = 0.8 See_Comment [A utomated message] The Eosinophils) system which ge nerated this result tra nsmitted reference range : <=4.0. The reference r fernando was not used to int erpret this result as normal/abnormal . [facility] HospitalTrdqzeaWZNONSNFVH1497-62-79 05:06:00 Test Item Value Reference Range Interpretation Comments Lymphocytes (test code = Lymphocytes) 21.4 20.0-40.0 [facility] HospitalBpokamsMYGDFTYDEE9613-42-00 05:06:00 Test Item Value Reference Range Interpretation Comments Segs (test code = Segs) 65.3 45.0-75.0 [facility]2018-05-30 05:06:00 Test Item Value Reference Range Interpretation Comments Ca Ion WB (test code = Ca Ion WB) 1.14 1.05-1.25 [facility]2018-05-30 05:06:00 Test Item Value Reference Range Interpretation Comments Ca Norm WB (test code = Ca Norm WB) 1.14 1.05-1.25 [facility]2018-05-29 21:23:00 Test Item Value Reference Range Interpretation Comments Lactic Acid Lvl (test code = Lactic 1.7 0.5-2.2 Acid Lvl) [facility]2018-05-29 15:19:00 Test Item Value Reference Range Interpretation Comments Procalcitonin Lvl (test no gt See_Comment [Au tomated message] code = Procalcitonin Lvl) Th e system which generated this result transmitted ref erence range: <=0.10. The reference range was not used to interpr et this result as normal/abnormal . [facility]annBACT[facility] - [id number] 15:03:00 Test Item Value Reference Range Interpretation Comments MRSA by PCR (test Negative (02/06/18 10:03 code = MRSA by PCR) AM) [facility] AustinannCHEM [id number] 15:03:00 Test Item Value Reference Range Interpretation Comments Lactic Acid Lvl (test code = Lactic 2.1 0.5-2.2 Acid Lvl) [facility] AustinannCARDIAC [id number] 10:01:00 Test Item Value Reference Range Interpretation Comments Troponin-I (test code no gt See_Comment [Auto mated message] The = Troponin-I) system which g enerated this result transmit timur reference range : <=0.40. The reference r fernando was not used to interpr et this result as jasmyne l/abnormal. [facility]annCARDIAC [id number] 10:01:00 Test Item Value Reference Range Interpretation Comments Troponin-T (test code no gt See_Comment [Auto mated message] The = Troponin-T) system which g enerated this result transmit timur reference range : <=0.100. The reference r fernando was not used to interpr et this result as jasmyne l/abnormal. [facility] AustinConsult Mango, IncCARDIAC [id number] 10:01:00 Test Item Value Reference Range Interpretation Comments Total CK (test code = Total CK) 188 12-191 [facility] AustinannCARDIAC [id number] 10:01:00 Test Item Value Reference Range Interpretation Comments CK MB Index (test 1.2 1 See_Comment [Automate d message] The code = CK MB Index) [facility] generated this result transmit timur reference range : <=2.5. The reference range was not used to interpr et this result as jasmyne l/abnormal. [facility] AustinConsult Mango, IncCARDIAC [id number] 10:01:00 Test Item Value Reference Range Interpretation Comments CK MB (test code = CK MB) 2.3 0.5-3.6 [facility] AustinannPARATHYROID [id number] 06:28:00 Test Item Value Reference Range Interpretation Comments Ca Norm WB (test code = Ca Norm WB) 1.00 1.05-1.25 [facility] AustinannPARATHYROID [id number] 06:28:00 Test Item Value Reference Range Interpretation Comments Ca Ion WB (test code = Ca Ion WB) 0.99 1.05-1.25 [facility] [id number] 05:16:00 Test Item Value Reference Range Interpretation Comments CK MB Index (test 1.5 1 See_Comment [Automate d message] The code = CK MB Index) [facility] generated this result transmit timur reference range : <=2.5. The reference range was not used to interpr et this result as jasmyne l/abnormal. [facility] MedicalAC [id number] 05:16:00 Test Item Value Reference Range Interpretation Comments CK MB (test code = CK MB) 1.4 0.5-3.6 [facility] [employer]annCARMetaSolvAC [id number] 05:16:00 Test Item Value Reference Range Interpretation Comments Troponin-T (test code no gt See_Comment [Auto mated message] The = Troponin-T) system which g enerated this result transmit timur reference range : <=0.100. The reference r fernando was not used to interpr et this result as jasmyne l/abnormal. [facility] [employer] MedicalAC [id number] 05:16:00 Test Item Value Reference Range Interpretation Comments Troponin-I (test code no gt See_Comment [Auto mated message] The = Troponin-I) system which g enerated this result transmit timur reference range : <=0.40. The reference r fernando was not used to interpr et this result as jasmyne l/abnormal. [facility] [employer] [id number] 05:16:00 Test Item Value Reference Range Interpretation Comments Total CK (test code = Total CK) 94 12-191 [facility] [id number] 05:16:00 Test Item Value Reference Range Interpretation Comments Albumin Lvl (test code = Albumin Lvl) 3.2 3.5-5.0 [facility] [id number] 05:16:00 Test Item Value Reference Range Interpretation Comments B/C Ratio (test code = B/C Ratio) 14 1 6-25 [facility] [id number] 05:16:00 Test Item Value Reference Range Interpretation Comments Total Protein (test code = Total 6.4 6.4-8.4 Protein) [facility]2018-05-29 05:16:00 Test Item Value Reference Range Interpretation Comments Globulin (test code = Globulin) 3.2 2.7-4.2 [facility]2018-05-29 05:16:00 Test Item Value Reference Range Interpretation Comments ALT (test code = ALT) 16 See_Comment [Auto mated message] The system which ge nerated this result transmit timur reference range : <=65. The reference range was not used to interpr et this result as jasmyne l/abnormal. [facility]2018-05-29 05:16:00 Test Item Value Reference Range Interpretation Comments A/G Ratio (test code = A/G Ratio) 1.0 1 0.7-1.6 [facility]2018-05-29 05:16:00 Test Item Value Reference Range Interpretation Comments Bili Total (test code = Bili Total) 0.3 0.2-1.3 [facility]2018-05-29 05:16:00 Test Item Value Reference Range Interpretation Comments Alk Phos (test code = Alk Phos) 67 39-136 [facility]2018-05-29 05:16:00 Test Item Value Reference Range Interpretation Comments AST (test code = AST) 14 See_Comment [Auto mated message] The system which ge nerated this result transmit timur reference range : <=37. The reference range was not used to interpr et this result as jasmyne l/abnormal. [facility]2018-05-29 05:16:00 Test Item Value Reference Range Interpretation Comments Magnesium Lvl (test code = Magnesium 1.6 1.8-2.4 Lvl) [facility]2018-05-29 05:16:00 Test Item Value Reference Range Interpretation Comments Phosphorus (test code = Phosphorus) 2.1 2.5-4.5 [facility] H[id number] 05:16:00 Test Item Value Reference Range Interpretation Comments Estimated % Lysis Rapid 0.9 See_Comment [Au tomated message] The (test code = Estimated syste m which generated % Lysis Rapid) this result t ransmitted reference range : <=7.5. The reference r fernando was not used to int erpret this result as normal/abnormal . [facility] H[id number] 05:16:00 Test Item Value Reference Range Interpretation Comments G-value Rapid (test code = G-value 11.7 5.0-11.6 Rapid) [facility] HospitalBosbdhqKJUXQKCFVT0631-98-79 05:16:00 Test Item Value Reference Range Interpretation Comments K-time Rapid (test code = K-time 0.8 min 0.6-2.3 Rapid) [facility] Ho[id number] 05:16:00 Test Item Value Reference Range Interpretation Comments Angle Rapid (test code = Angle 76 degrees 64-80 Rapid) [facility] HospitalWaboabaKJGGGSUVLQ3972-61-40 05:16:00 Test Item Value Reference Range Interpretation Comments Max Amplitude Rapid (test code = Max 70 mm 52-71 Amplitude Rapid) [facility] HospitalNtghhdaNTVJHKNWWZ5894-20-45 05:16:00 Test Item Value Reference Range Interpretation Comments ACT (TEG) Rapid (test code = ACT (TEG) 121 s 86-118 Rapid) [facility] Hos[id number] 05:16:00 Test Item Value Reference Range Interpretation Comments Split Point Rapid (test code = Split 0.4 min Point Rapid) [facility] HospitalPineuvnXTVAGCRHUO2945-62-14 05:16:00 Test Item Value Reference Range Interpretation Comments R-time Rapid (test code = R-time 0.8 min 0.4-0.7 Rapid) [facility] HospitalIilodgjVXMWBKFLMJ9181-43-26 05:16:00 Test Item Value Reference Range Interpretation Comments INR (test code = INR) 1.14 1 0.85-1.17 [facility] HospitalOlqxctxFPNMJZMUOK3122-15-30 05:16:00 Test Item Value Reference Range Interpretation Comments PTT (test code = PTT) 46.9 s 22.9-35.8 [facility] Hos[id number] 05:16:00 Test Item Value Reference Range Interpretation Comments PT (test code = PT) 14.6 s 12.0-14.7 [facility] HospitalTyjmadeJQBINSZSOL8321-09-59 01:34:00 Test Item Value Reference Range Interpretation Comments Plav Effect Plt (test code = Plav 220 Effect Plt) [facility] HospitalCkvzulaIYGOYNQSZD5540-64-28 01:34:00 Test Item Value Reference Range Interpretation Comments ASA Effect Plt (test code = ASA Effect 540 Plt) [facility] [employer] [id number] 01:29:00 Test Item Value Reference Range Interpretation Comments CK MB (test code = CK MB) 0.9 0.5-3.6 [facility] [id number] 01:29:00 Test Item Value Reference Range Interpretation Comments CK MB Index (test 1.2 1 See_Comment [Automate d message] The code = CK MB Index) [facility] generated this result transmit timur reference range : <=2.5. The reference range was not used to interpr et this result as jasmyne l/abnormal. [facility] [employer] [id number] 01:29:00 Test Item Value Reference Range Interpretation Comments Troponin-T (test code no gt See_Comment [Auto mated message] The = Troponin-T) system which g enerated this result transmit timur reference range : <=0.100. The reference r fernando was not used to interpr et this result as jasmyne l/abnormal. [facility] [employer] [id number] 01:29:00 Test Item Value Reference Range Interpretation Comments Troponin-I (test code no gt See_Comment [Auto mated message] The = Troponin-I) system which g enerated this result transmit timur reference range : <=0.40. The reference r fernando was not used to interpr et this result as jasmyne l/abnormal. [facility] [employer] [id number] 01:29:00 Test Item Value Reference Range Interpretation Comments Total CK (test code = Total CK) 77 12-191 [facility] [employer] [id number] 01:29:00 Test Item Value Reference Range Interpretation Comments Lactic Acid Lvl (test code = Lactic 1.6 0.5-2.2 Acid Lvl) [facility] [id number] 01:29:00 Test Item Value Reference Range Interpretation Comments Osmolality (test code = Osmolality) 273 280-300 [facility] [employer]annURINE AND [id number] 01:29:00 Test Item Value Reference Range Interpretation Comments UA Sq Epi (test code = UA Sq Epi) None Seen [facility] [facility]annURINE AND [id number] 01:29:00 Test Item Value Reference Range Interpretation Comments UA Urobilinogen (test code = UA <=1.0 mg/dL 0.1-1.0 Urobilinogen) [facility] AND [id number] 01:29:00 Test Item Value Reference Range Interpretation Comments UA Color (test code = Light Yellow UA Color) *NA*(02/05/18 8:29 PM) [facility] AND [id number] 01:29:00 Test Item Value Reference Range Interpretation Comments UA Spec Grav (test code = UA Spec 1.010 1 Grav) [facility] AND [id number] 01:29:00 Test Item Value Reference Range Interpretation Comments UA pH (test code = UA pH) 7.5 1 5.0-8.0 [facility] AND [id number] 01:29:00 Test Item Value Reference Range Interpretation Comments UA Turbidity (test code Slight *ABN*(02/05/18 = UA Turbidity) 8:29 PM) [facility] AND [id number] 01:29:00 Test Item Value Reference Range Interpretation Comments UA Glucose (test code = UA Glucose) 300 mg/dL [facility] AND [id number] 01:29:00 Test Item Value Reference Range Interpretation Comments UA Protein (test code = UA Protein) 100 mg/dL [facility] AND [id number] 01:29:00 Test Item Value Reference Range Interpretation Comments UA Ketones (test code = UA Ketones) 20 mg/dL [facility] AND [id number] 01:29:00 Test Item Value Reference Range Interpretation Comments UA Nitrite (test code Negative (02/05/18 8:29 = UA Nitrite) PM) [facility] AND [id number] 01:29:00 Test Item Value Reference Range Interpretation Comments UA WBC (test code = 1 See_Comment [Automa timur message] The UA WBC) system which ge nerated this result transmit timur reference range : <=5. The reference range was not used to interpr et this result as jasmyne l/abnormal. [facility] AND [id number] 01:29:00 Test Item Value Reference Range Interpretation Comments UA Leuk Est (test Negative (02/05/18 8:29 code = UA Leuk Est) PM) [facility] AND [id number] 01:29:00 Test Item Value Reference Range Interpretation Comments UA RBC (test code = 3 See_Comment [Automa timur message] The UA RBC) system which ge nerated this result transmit timur reference range : <=2. The reference range was not used to interpr et this result as jasmyne l/abnormal. [facility] AND [id number] 01:29:00 Test Item Value Reference Range Interpretation Comments UA Amorph Aliya (test code = UA Few /HPF Amorph Aliya) [facility] AND [id number] 01:29:00 Test Item Value Reference Range Interpretation Comments UA Mucus (test code = UA Mucus) Few /LPF [facility] AND [id number] 01:29:00 Test Item Value Reference Range Interpretation Comments UA Blood (test code = Negative (02/05/18 8:29 UA Blood) PM) [facility] AND [id number] 01:29:00 Test Item Value Reference Range Interpretation Comments UA Bili (test code = Negative *NA*(02/05/18 UA Bili) 8:29 PM) [facility] [id number] 01:29:00 Test Item Value Reference Range Interpretation Comments U Osmolality (test code = U Osmolality) 477 300-800 [facility]2018-05-29 01:29:00 Test Item Value Reference Range Interpretation Comments U Sodium (test code = U Sodium) 123 [facility] [id number] 01:25:00 Test Item Value Reference Range Interpretation Comments FFP product (test code Product available = FFP product) (02/05/18 8:25 PM) [facility]lfekudAINOHRBDFG0568-79-10 23:04:00 Test Item Value Reference Range Interpretation Comments ACT (TEG) Rapid (test code = ACT (TEG) 144 s 86-118 Rapid) [facility] HospitalEcaevkjQXJAEFMQLP8906-53-76 23:04:00 Test Item Value Reference Range Interpretation Comments Split Point Rapid (test code = Split 0.7 min Point Rapid) [facility] HospitalWaaxvfaMYGHOBOFFH7215-65-57 23:04:00 Test Item Value Reference Range Interpretation Comments K-time Rapid (test code = K-time 0.9 min 0.6-2.3 Rapid) [facility] HospitalRhwxbrpHUASDIXKPV6571-16-28 23:04:00 Test Item Value Reference Range Interpretation Comments R-time Rapid (test code = R-time 1.0 min 0.4-0.7 Rapid) [facility] HospitalGbqszxgXSCSGHWUDQ7501-94-21 23:04:00 Test Item Value Reference Range Interpretation Comments Max Amplitude Rapid (test code = Max 75 mm 52-71 Amplitude Rapid) [facility] Hos[id number] 23:04:00 Test Item Value Reference Range Interpretation Comments Angle Rapid (test code = Angle 76 degrees 64-80 Rapid) [facility] Hos[id number] 23:04:00 Test Item Value Reference Range Interpretation Comments G-value Rapid (test code = G-value 14.8 5.0-11.6 Rapid) [facility] [id number] 23:04:00 Test Item Value Reference Range Interpretation Comments Estimated % Lysis Rapid 0.0 See_Comment [Au tomated message] The (test code = Estimated syste m which generated % Lysis Rapid) this result t ransmitted reference range : <=7.5. The reference r fernando was not used to int erpret this result as normal/abnormal . [facility]Tele[facility] [id number] 23:00:00 Test Item Value Reference Range Interpretation Comments ABO/Rh (test code = ABO/Rh) A POS [facility]Aff[facility] [id number] 23:00:00 Test Item Value Reference Range Interpretation Comments Antibody Scrn (test Negative (02/05/18 6:00 code = Antibody Scrn) PM) [facility]
[2023-02-27 12:10] LABS: ALT/SGPT 29 U/L (13-56); AST/SGOT 15 U/L (15-37); Albumin 3.7 g/dL (3.4-5.0); Alkaline Phosphatase 88 U/L (45-117); BUN Blood Urea Nitrogen 22 mg/dL (7-18); Bicarbonate 22 mEq/L (21-32); Bilirubin Total 0.3 mg/dL (0.2-1.0); Glomerular Filtration Rate 42 ml/min (=/>90); Glucose Level 210 mg/dL (74-106); Magnesium 1.7 mg/dL (1.6-2.4); NT PRO-BNP 107 pg/mL (<450); Potassium 3.7 mEq/L (3.5-5.1); Protein, Total 7.3 g/dL (6.4-8.2); Sodium Level 136 mEq/L (136-145)
[2023-02-27 12:13] LABS: Bilirubin Direct < 0.1 mg/dL (0-0.2); Bilirubin Indirect, Calculated ND mg/dL (0.2-0.8)
--- NOTE | 2023-02-27 12:26 | RAD REPORT ---
EXAM DESCRIPTION: Sonido Single View02/27/2023 12:20 pm CLINICAL HISTORY: Cough COMPARISON: February 2023 FINDINGS: Lungs appear clear of acute infiltrate. Heart is borderline enlarged Probable thoracic aortic aneurysm unchanged. CT chest is recommended for further evaluation
[2023-02-27] MEDS ORDERED: THIAMINE 200 MG/2 ML INJ ONE (12:38)
[2023-02-27] MEDS ORDERED: FOLIC ACID 5 MG/ML VIAL ONE (12:40)
--- NOTE | 2023-02-27 12:48 | RAD REPORT ---
EXAM DESCRIPTION: USCarotid Artery Bilateral02/27/2023 12:21 pm CLINICAL HISTORY: syncope COMPARISON: December 2022 CT angiogram FINDINGS: The velocity of the right internal carotid artery equals 310 cm/sec. The right ICA/CCA rat io 5.4 The velocity of the left internal carotid artery equals cm/sec. The left ICA/CCA ratio Marked plaque left internal carotid artery The vertebral arteries demonstrate antegrade flow IMPRESSION: Severe stenosis left internal carotid artery. The stenosis is estimated to be 95% NASCET criteria used. Mild 0-49% stenosis Moderate 50-69% stenosis Severe 70-99% stenosis
--- NOTE | 2023-02-27 13:56 | ER ---
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 Pt currently unresponsive with gasping respirations. Pt transported to ER Room 4 via stretcher and upon arrival to ER Room 4 pt was responsive and able to speak, A\\T\\O x person. 11:20 Onset of symptoms was February 27, 2023. aa5 11:20 Acuity: FARIDA 1 aa5 11:20 Method Of Arrival: Stretcher aa5 11:20 Risk Assessment: Do you want to hurt yourself or someone else? Unable to obtain. aa5 11:30 Coronavirus screen: At this time, the client does not indicate any symptoms associated jl7 with coronavirus-19. Ebola Screen: No symptoms or risks identified at this time. Initial Sepsis Screen: Does the patient meet any 2 criteria? No. Patient's initial sepsis screen is negative. Does the patient have a suspected source of infection? No. Patient's initial sepsis screen is negative. Historical: - Allergies: 11:20 Codeine (Upset stomach); aa5 11:20 meperidine HCl; aa5 11:20 Morphine; aa5 - Home Meds: 13:37 amlodipine 10 mg tablet daily [Active]; atorvastatin 10 mg Oral tablet every day at jl7 bedtime [Active]; gabapentin 300 mg Oral capsule 3 times per day [Active]; hydralazine 100 mg Oral tablet 3 times per day [Active]; irbesartan 300 mg Oral tablet daily [Active]; - PMHx: 11:20 Cardiac pacemaker in situ; CVA; Dementia; Depression; Diabetes - IDDM; GERD; aa5 Hypercholesterolemia; Hypertensive disorder; - PSHx: 11:20 Appendectomy; Cholecystectomy; Total abdominal hysterectomy; aa5 - Immunization history:: Adult Immunizations unknown. - Social history:: Smoking status: unknown. - Family history:: not pertinent. Screenin:34 Abuse screen: Denies threats or abuse. Denies injuries from another. Nutritional jl7 screening: No deficits noted. Tuberculosis screening: No symptoms or risk factors identified. 13:36 [facility] ED Fall Risk Assessment (Adult) History of falling in the last 3 months, jl7 including since admission Yes- physiologic fall (2 pts) Confusion or Disorientation No (0 pts) Intoxicated or Sedated No (0 pts) Impaired Gait Yes (1 pt) Mobility Assist Device Used No (0 pt) Altered Elimination No (0 pt) Score/Fall Risk Level 3 or more points = High Risk Oriented to surroundings, Maintained a safe environment. Assessment: 11:25 General: Appears in no apparent distress. uncomfortable, well groomed, well developed, jl7 well nourished, Behavior is drowsy. Pain: Denies pain. Neuro: Cruz Agitation-Sedation Scale (RASS): -1 Drowsy Level of Consciousness is obeys commands, listless, Oriented to person, place, time, Can Doffer are equal bilaterally Moves all extremities. Full function Facial symmetry appears normal. Cardiovascular: Rhythm is regular. Respiratory: Airway is patent Respiratory effort is even, unlabored, Respiratory pattern is regular, symmetrical. Derm: Skin is pink, warm \\T\\ dry. 12:20 Reassessment: Patient appears in no apparent distress at this time. No changes from kc6 previously documented assessment. Patient and/or family updated on plan of care and expected duration. Pain level reassessed. Patient is alert, oriented x 3, equal unlabored respirations, skin warm/dry/pink. 13:28 Reassessment: Patient appears in no apparent distress at this time. Patient and/or jl7 family updated on plan of care and expected duration. Pain level reassessed. Patient is alert, oriented x 3, equal unlabored respirations, skin warm/dry/pink. States "I'm ready to go now." Patient denies pain at this time. Patient states feeling better. Patient states symptoms have improved. 13:34 Reassessment: Dr. Olsen at bedside discussing results and POC. jl7 14:30 Reassessment: Patient appears in no apparent distress at this time. No changes from jl7 previously documented assessment. Patient and/or family updated on plan of care and expected duration. Pain level reassessed. Patient is alert, oriented x 3, equal unlabored respirations, skin warm/dry/pink. 15:30 Reassessment: Patient appears in no apparent distress at this time. No changes from jl7 previously documented assessment. Patient and/or family updated on plan of care and expected duration. Pain level reassessed. Patient is alert, oriented x 3, equal unlabored respirations, skin warm/dry/pink. 16:21 Reassessment: Dr. Olsen at bedside discussing POC. [facility] Vital Signs: 11:34 BP 94 / 64; Pulse 82; Resp 16; Pulse Ox 97% on R/A; iw 12:34 BP 117 / 84; Pulse 73; Resp 15 S; Pulse Ox 95% on R/A; kc6 13:04 BP 140 / 77; Pulse 79; Resp 18; Pulse Ox 99% on R/A; iw 13:28 BP 183 / 97; Pulse 69; Resp 15; Pulse Ox 100% ; Pain 0/10; jl7 13:30 Temp 98.3; jl7 15:42 BP 170 / 98; Pulse 71; Resp 17; Pulse Ox 100% ; jl7 16:30 BP 183 / 97; Pulse 68; Resp 17; Pulse Ox 98% ; Pain 0/10; jl7 13:28 Pain Scale: Adult jl7 16:30 Pain Scale: Adult 7 16:30 Pt states "I will take my BP medicine when I get home." 7 Luna Coma Score: 16:36 Eye Response: spontaneous(4). Motor Response: obeys commands(6). Verbal Response: denzel oriented(5). Total: 15. NIH Stroke Scale Scores: 13:57 NIHSS Score: 0 denzel ED Course: 11:20 Patient arrived in ED. aa5 11:20 Arm band placed on Patient placed in an exam room, on a stretcher. aa5 11:20 Patient has correct armband on for positive identification. Bed in low position. Call [facility] light in reach. Side rails up X 1. Client placed on continuous cardiac and pulse oximetry monitoring. NIBP monitoring applied. 11:23 Inserted saline lock: 20 gauge in right forearm, using aseptic technique. aa5 11:26 Marcellus Alvarado RN is Primary Nurse. jl7 11:28 Desmond Olsen MD is Attending Physician. denzel 11:32 Triage completed. aa5 11:35 Initial lab(s) drawn, by me, sent to lab. EKG done, by ED staff, reviewed by Desmond Olsen MD. 11:50 CT Traumagram (Head C Spine CAP wo con) In Process Unspecified. EDMS 12:22 XRAY Chest (1 view) In Process Unspecified. EDMS 12:22 US Carotid Artery Bilateral In Process Unspecified. EDMS 13:48 Saurabh Mohan is Hospitalizing Provider. denzel 14:10 Lianna Mcgill MD is Hospitalizing Provider. denzel 16:07 initiated transfer to [facility]. bd 16:25 Edwardo Angel MD is Referral Physician. denzel 16:45 No provider procedures requiring assistance completed. IV discontinued, intact, jl7 bleeding controlled, No redness/swelling at site. Pressure dressing applied. Administered Medications: 12:28 Drug: NS 0.9% IV 1000 ml Route: IV; Rate: 1 bolus; Site: right forearm; kc6 14:00 Follow up: Response: No adverse reaction; IV Status: Completed infusion; IV Intake: jl7 1000ml 12:28 Drug: Banana Bag - (NS 0.9% IV 1000 ml, foLIC Acid IVPB 1 mg, Thiamine IV 100 mg, kc6 Multivitamin IV 1 amp) Route: IV; Rate: 125 ml/hr; Site: right forearm; 16:47 Follow up: Response: No adverse reaction; IV Status: Order to discontinue infusion; IV jl7 Intake: 500ml 12:28 Drug: Famotidine IVP 20 mg Route: IVP; Site: right forearm; kc6 13:33 Follow up: Response: No adverse reaction jl7 12:28 Drug: Solu-CORTEF IVP 100 mg Route: IVP; Site: right forearm; kc6 13:33 Follow up: Response: No adverse reaction jl7 12:33 Drug: foLIC Acid IVPB 1 mg Route: IVPB; Site: right forearm; kc6 12:35 Follow up: Response: No adverse reaction; IV Status: Completed infusion jl7 12:34 Drug: Thiamine IV 100 mg Route: IV; Rate: bolus; Site: right forearm; kc6 12:36 Follow up: Response: No adverse reaction; IV Status: Completed infusion jl7 14:24 Drug: Aspirin PO Chewable Tablet 162 mg Route: PO; jl7 16:48 Follow up: Response: No adverse reaction jl7 16:30 Drug: Atorvastatin PO 10 mg Route: PO; jl7 16:48 Follow up: Response: Medication administered at discharge. jl7 16:30 Drug: Clopidogrel PO 75 mg Route: PO; jl7 16:48 Follow up: Response: Medication administered at discharge. jl7 Medication: 13:32 VIS not applicable for this client. jl7 Point of Care Testing: Blood Glucose: 11:23 Blood Glucose: 100 mg/dL; aa5 Ranges: Intake: 14:00 IV: 1000ml; Total: 1000ml. jl7 16:47 IV: 500ml; Total: 1500ml. jl7 Outcome: 13:56 Decision to Hospitalize by Provider. denzel 16:26 Discharge ordered by . denzel 16:59 Discharged to home via wheelchair, with family. jl7 16:59 Condition: stable 16:59 Discharge instructions given to patient, family, Instructed on discharge instructions, follow up and referral plans. Demonstrated understanding of instructions, follow-up care. 17:00 Patient left the ED. jl7 NIH Stroke Scale - NIH Stroke Score Date: 02/27/2023 Time: 13:57 Total Score = 0 10. Dysarthria (speech clarity - read or repeat words) - 0(Normal) 11. Extinction and Inattention (visual/tactile/auditory/spatial/personal) - 0(No abnormality) 1a. Level of Consciousness (LOC) - 0(Alert) 1b. Level of Consciousness (LOC) (Month \\T\\ Age) - 0(Both) 1c. LOC Commands (Open \\T\\ Closes Eyes/Sorter Laundry Articles) - 0(Both) 2. Best Gaze (Lateral Gaze Paresis) - 0(Normal) 3. Visual Field Loss - 0(No visual loss) 4. Facial Palsy - 0(Normal) 5a. Left Arm: Motor (10-second hold) - 0(No drift) 5b. Right Arm: Motor (10-second hold) - 0(No drift) 6a. Left Leg: Motor (5-second hold - always test supine) - 0(No drift) 6b. Right Leg: Motor (5-second hold - always test supine) - 0(No drift) 7. Limb Ataxia (finger/nose \\T\\ heel/eldridge - test with eyes open) - 0(Absent) 8. Sensory Loss (pinprick arms/legs/face) - 0(Normal) 9. Best Language: Aphasia (description/naming/reading) - 0(No aphasia) Initials: denzel Signatures: Dispatcher [employer] EDMS Justyna Chavez Corey, MD MD cha Williams, Irene, RN RN Petty Cameron RN RN aa5 Marcellus Alvarado RN RN jl7 Bianca Wan am2 Luz Mendoza RN RN kc6 Corrections: (The following items were deleted from the chart) 11 11:25 Patient arrived in ED. am2 aa5 11: 11:25 Arm band placed on aa5 aa5 13:31 13:28 BP 183 / 97; Pulse 69bpm; Resp 15bpm; Pulse Ox 100%; Pain 0/10, Adult; [facility] 13:31 13:30 Temp 98.3F; [facility] 13:31 13:28 Reassessment: Patient appears in no apparent distress at this time. jl7 Patient and/or family updated on plan of care and expected duration. Pain level reassessed. Patient is alert, oriented x 3, equal unlabored respirations, skin warm/dry/pink. States "I'm ready to go now." Patient denies pain at this time. Patient states feeling better. Patient states symptoms have improved. 13:35 11:20 Reassessment: please see triage assessment kc6 jl7
--- NOTE | 2023-02-27 13:56 | EDPHYS ---
Physician Documentation [facility] Name: Skylar Grossman Age: 87 yrs Sex: Female : 1935 Arrival Date: 02/27/2023 Time: 11:23 Bed 4 Private MD: ED Physician Desmond Olsen HPI: 02/27 13:38 This 87 yrs old Female presents to ER via Stretcher with complaints of denzel Unresponsive. 13:38 got hot, syncope, collapsed, no focal weakness. The patient has experienced syncope, denzel became unresponsive. Onset: The symptoms/episode began/occurred just prior to arrival. Duration: This was a single episode, that lasted 30 second(s). Context: the episode(s) was witnessed, by a friend. Onset: The symptoms/episode began/occurred this morning. Associated injury: The patient did not suffer any apparent associated injury. Associated signs and symptoms: Pertinent positives: confusion, lightheadedness. Current symptoms: Currently, the patient is not experiencing any symptoms. Severity of symptoms: At their worst the symptoms were moderate in the emergency department the symptoms have improved moderately. Historical: - Allergies: 11:20 Codeine (Upset stomach); aa5 11:20 meperidine HCl; aa5 11:20 Morphine; aa5 - Home Meds: 13:37 amlodipine 10 mg tablet daily [Active]; atorvastatin 10 mg Oral tablet every day at jl7 bedtime [Active]; gabapentin 300 mg Oral capsule 3 times per day [Active]; hydralazine 100 mg Oral tablet 3 times per day [Active]; irbesartan 300 mg Oral tablet daily [Active]; - PMHx: 11:20 Cardiac pacemaker in situ; CVA; Dementia; Depression; Diabetes - IDDM; GERD; aa5 Hypercholesterolemia; Hypertensive disorder; - PSHx: 11:20 Appendectomy; Cholecystectomy; Total abdominal hysterectomy; aa5 - Immunization history:: Adult Immunizations unknown. - Social history:: Smoking status: unknown. - Family history:: not pertinent. ROS: 13:38 Constitutional: Negative for fever, chills, and weight loss, Eyes: Negative for injury, denzel pain, redness, and discharge, ENT: Negative for injury, pain, and discharge, Neck: Negative for injury, pain, and swelling, Cardiovascular: Negative for chest pain, palpitations, and edema, Respiratory: Negative for shortness of breath, cough, wheezing, and pleuritic chest pain, Abdomen/GI: Negative for abdominal pain, nausea, vomiting, diarrhea, and constipation, Back: Negative for injury and pain, : Negative for injury, bleeding, discharge, and swelling, MS/Extremity: Negative for injury and deformity, Skin: Negative for injury, rash, and discoloration, Psych: Negative for depression, anxiety, suicide ideation, homicidal ideation, and hallucinations, Allergy/Immunology: Negative for hives, rash, and allergies, Endocrine: Negative for neck swelling, polydipsia, polyuria, polyphagia, and marked weight changes, Hematologic/Lymphatic: Negative for swollen nodes, abnormal bleeding, and unusual bruising. 13:38 Neuro: Positive for syncope, weakness. Exam: 13:38 Constitutional: This is a well developed, well nourished patient who is awake, alert, denzel and in no acute distress. Head/Face: Normocephalic, atraumatic. Eyes: Pupils equal round and reactive to light, extra-ocular motions intact. Lids and lashes normal. Conjunctiva and sclera are non-icteric and not injected. Cornea within normal limits. Periorbital areas with no swelling, redness, or edema. ENT: Nares patent. No nasal discharge, no septal abnormalities noted. Tympanic membranes are normal and external auditory canals are clear. Oropharynx with no redness, swelling, or masses, exudates, or evidence of obstruction, uvula midline. Mucous membranes moist. Neck: Trachea midline, no thyromegaly or masses palpated, and no cervical lymphadenopathy. Supple, full range of motion without nuchal rigidity, or vertebral point tenderness. No Meningismus. Chest/axilla: Normal chest wall appearance and motion. Nontender with no deformity. No lesions are appreciated. Cardiovascular: Regular rate and rhythm with a normal S1 and S2. No gallops, murmurs, or rubs. Normal PMI, no JVD. No pulse deficits. Respiratory: Lungs have equal breath sounds bilaterally, clear to auscultation and percussion. No rales, rhonchi or wheezes noted. No increased work of breathing, no retractions or nasal flaring. Abdomen/GI: Soft, non-tender, with normal bowel sounds. No distension or tympany. No guarding or rebound. No evidence of tenderness throughout. Back: No spinal tenderness. No costovertebral tenderness. Full range of motion. Female : Normal external genitalia. Skin: Warm, dry with normal turgor. Normal color with no rashes, no lesions, and no evidence of cellulitis. MS/ Extremity: Pulses equal, no cyanosis. Neurovascular intact. Full, normal range of motion. Psych: Awake, alert, with orientation to person, place and time. Behavior, mood, and affect are within normal limits. 13:38 ECG was reviewed by the Attending Physician. 13:56 ECG was reviewed by the Attending Physician. [facility] Vital Signs: 11:34 BP 94 / 64; Pulse 82; Resp 16; Pulse Ox 97% on R/A; iw 12:34 BP 117 / 84; Pulse 73; Resp 15 S; Pulse Ox 95% on R/A; kc6 13:04 BP 140 / 77; Pulse 79; Resp 18; Pulse Ox 99% on R/A; iw 13:28 BP 183 / 97; Pulse 69; Resp 15; Pulse Ox 100% ; Pain 0/10; jl7 13:30 Temp 98.3; jl7 15:42 BP 170 / 98; Pulse 71; Resp 17; Pulse Ox 100% ; jl7 16:30 BP 183 / 97; Pulse 68; Resp 17; Pulse Ox 98% ; Pain 0/10; jl7 13:28 Pain Scale: Adult jl7 16:30 Pain Scale: Adult jl7 16:30 Pt states "I will take my BP medicine when I get home." jl7 NIH Stroke Scale Scores: 13:57 NIHSS Score: 0 denzel [place] Coma Score: 16:36 Eye Response: spontaneous(4). Motor Response: obeys commands(6). Verbal Response: denzel oriented(5). Total: 15. MDM: 11:28 Patient medically screened. denzel 13:42 Differential Diagnosis altered mental status. Differential Diagnosis: cardiac denzel arrhythmia, cerebrovascular accident, emotional response, idiopathic syncope, seizure, sepsis, vasovagal episode. Data reviewed: vital signs, nurses notes, lab test result(s), EKG, radiologic studies, CT scan, doppler, MRI. Consideration of Admission/Observation Patient was admitted/placed on observation. Escalation of care including admission/observation considered. I considered the following discharge prescriptions or medication management in the emergency department Medications were administered in the Emergency Department. See MAR. Independent interpretation of the following test(s) in the Emergency Department EKG: See my EKG interpretation above. Test considered but Not performed: MRI: no mri , secondary to pm. Care significantly affected by the following chronic conditions: Diabetes, Hypertension, dementia, pacemaker. Counseling: I had a detailed discussion with the patient and/or guardian regarding: the historical points, exam findings, and any diagnostic results supporting the discharge/admit diagnosis, the presence of at least one elevated blood pressure reading (>120/80) during this emergency department visit, lab results, radiology results, the need for further work-up and treatment in the hospital. 16:37 ED course: FRED[facility] AN[facility] DC HOME WILL SEE TOMORROW , COMPLETELY FAMILIAR WITH THE PAT, denzel AWERE OF THE 95% LEFT CAROTID OCCULSION. 02/27 11:31 Order name: Basic Metabolic Panel; Complete Time: 13:29 [facility] 02/27 11:31 Order name: CBC with Diff; Complete Time: 13:29 [facility] 02/27 11:31 Order name: LFT's; Complete Time: 13:29 [facility] 02/27 11:31 Order name: Magnesium; Complete Time: 13:29 [facility] 02/27 11:31 Order name: NT PRO-BNP; Complete Time: 13:29 [facility] 02/27 11:31 Order name: PT-INR; Complete Time: 13:29 [facility] 02/27 11:31 Order name: Troponin HS; Complete Time: 13:29 [facility] 02/27 13:30 Order name: glucometer results - FOR PT WITH NO ID; Complete Time: 15:58 02/27 13:37 Order name: Lipid Profile; Complete Time: 15:58 [facility] 02/27 11:31 Order name: XRAY Chest (1 view); Complete Time: 13:29 [facility] 02/27 11:31 Order name: CT Traumagram (Head C Spine CAP wo con); Complete Time: 13:29 [facility] 02/27 11:31 Order name: US Carotid Artery Bilateral; Complete Time: 13:29 [facility] 02/27 11:31 Order name: EKG; Complete Time: 11:32 [facility] 02/27 11:31 Order name: Cardiac monitoring; Complete Time: 11:36 [facility] 02/27 11:31 Order name: EKG - Nurse/Tech; Complete Time: 11:36 [facility] 02/27 11:31 Order name: IV Saline Lock; Complete Time: 11:36 [facility] 02/27 11:31 Order name: Labs collected and sent; Complete Time: 11:39 [facility] 02/27 11:31 Order name: O2 Per Protocol; Complete Time: [facility] 02/27 11: Order name: O2 Sat Monitoring; Complete Time: [facility] 02/27 11:31 Order name: Glucose Level; Complete Time: 11:34 [facility] EC:56 Rate is 82 beats/min. Rhythm is regular. QRS [place] is Normal. ME interval is normal. QRS denzel interval is normal. QT interval is normal. No Q waves. T waves are Normal. No ST changes noted. Clinical impression: NSR w/ Non-specific ST/T Changes and No evidence of ischemia. Interpreted by me. Reviewed by me. Administered Medications: 12:28 Drug: NS 0.9% IV 1000 ml Route: IV; Rate: 1 bolus; Site: right forearm; kc6 14:00 Follow up: Response: No adverse reaction; IV Status: Completed infusion; IV Intake: jl7 1000ml 12:28 Drug: Banana Bag - (NS 0.9% IV 1000 ml, foLIC Acid IVPB 1 mg, Thiamine IV 100 mg, kc6 Multivitamin IV 1 amp) Route: IV; Rate: 125 ml/hr; Site: right forearm; 16:47 Follow up: Response: No adverse reaction; IV Status: Order to discontinue infusion; IV jl7 Intake: 500ml 12:28 Drug: Famotidine IVP 20 mg Route: IVP; Site: right forearm; kc6 13:33 Follow up: Response: No adverse reaction jl7 12:28 Drug: Solu-CORTEF IVP 100 mg Route: IVP; Site: right forearm; kc6 13:33 Follow up: Response: No adverse reaction jl7 12:33 Drug: foLIC Acid IVPB 1 mg Route: IVPB; Site: right forearm; kc6 12:35 Follow up: Response: No adverse reaction; IV Status: Completed infusion jl7 12:34 Drug: Thiamine IV 100 mg Route: IV; Rate: bolus; Site: right forearm; kc6 12:36 Follow up: Response: No adverse reaction; IV Status: Completed infusion jl7 14:24 Drug: Aspirin PO Chewable Tablet 162 mg Route: PO; jl7 16:48 Follow up: Response: No adverse reaction jl7 16:30 Drug: Atorvastatin PO 10 mg Route: PO; 16:48 Follow up: Response: Medication administered at discharge. 16:30 Drug: Clopidogrel PO 75 mg Route: PO; 16:48 Follow up: Response: Medication administered at discharge. jl Point of Care Testing: Blood Glucose: 11: Blood Glucose: 100 mg/dL; aa5 Ranges: Critical Glucose Levels:Adult <50 mg/dl or >400 mg/dl <40 mg/dl or >180 mg/dl Disposition Summary: 02/27/23 16: Discharge Ordered Location: Home(02/27/23 16:) denzel Problem: new(02/27/23 16:) denzel Symptoms: have improved(02/27/23 16:) denzel Condition: Stable(02/27/23 16:) denzel Diagnosis - Heat syncope(02/27/23 16:) denzel - Syncope Near(02/27/23 16:) denzel - Occlusion and stenosis of left carotid artery - INTERNAL CAROTID 95%, denzel OCCLUSION(02/27/23 16:) - Unspecified kidney failure - INSUFFICENCY(02/27/23 16:) denzel Followup: denzel - With: Edwardo Angel MD - When: Tomorrow - Reason: Recheck today's complaints, Continuance of care, Re-evaluation by your physician Discharge Instructions: - Discharge Summary Sheet denzel - Dehydration, Elderly denzel - Near-Syncope denzel - Syncope denzel - Weakness denzel - Near-Syncope, Bmpn-nl-[id number] denzel - Syncope, Yalw-ta-Rzyl denzel - Weakness, Umtg-sv-[id number] denzel - Aspirin and Your Heart denzel - Chronic Kidney Disease, Adult, Mptv-[id number] denzel - Dehydration, Elderly, Joao-ol-Awra denzel Forms: - Medication Reconciliation Form denzel - Thank You Letter denzel - Antibiotic Education denzel - Prescription Opioid Use denzel NIH Stroke Scale - NIH Stroke Score Date: 02/27/2023 Time: 13:57 Total Score = 0 10. Dysarthria (speech clarity - read or repeat words) - 0(Normal) 11. Extinction and Inattention (visual/tactile/auditory/spatial/personal) - 0(No abnormality) 1a. Level of Consciousness (LOC) - 0(Alert) 1b. Level of Consciousness (LOC) (Month \\T\\ Age) - 0(Both) 1c. LOC Commands (Open \\T\\ Closes Eyes/Signal Wirer) - 0(Both) 2. Best Gaze (Lateral Gaze Paresis) - 0(Normal) 3. Visual Field Loss - 0(No visual loss) 4. Facial Palsy - 0(Normal) 5a. Left Arm: Motor (10-second hold) - 0(No drift) 5b. Right Arm: Motor (10-second hold) - 0(No drift) 6a. Left Leg: Motor (5-second hold - always test supine) - 0(No drift) 6b. Right Leg: Motor (5-second hold - always test supine) - 0(No drift) 7. Limb Ataxia (finger/nose \\T\\ heel/eldridge - test with eyes open) - 0(Absent) 8. Sensory Loss (pinprick arms/legs/face) - 0(Normal) 9. Best Language: Aphasia (description/naming/reading) - 0(No aphasia) Initials: denzel Signatures: Dispatcher [employer] EDND Desmond Olsen MD MD cha Calderon, Audri, RN RN aa5 Marcellus Alvarado RN RN jl7 Luz Mendoza RN RN kc6 Corrections: (The following items were deleted from the chart) 11:38 11:32 MR STROKE PROTOCOL+MRI.RAD.BRZ ordered. [facility] EDND 13:56 13:38 Rate is 88 beats/min. Rhythm is regular. QRS [place] is Normal. ME interval denzel is normal. QRS interval is normal. QT interval is prolonged at 764 msec. No Q waves. T waves are Normal. No ST changes noted. Clinical impression: NSR w/ Non-specific ST/T Changes and No evidence of ischemia. Interpreted by me. Reviewed by me. denzel 14:10 13:56 Saurabh Mohan denzel denzel 16:24 13:56 Observation denzel denzel 16:24 13:56 Telemetry/MedSurg (observation) denzel denzel 16:24 13:56 Fair denzel denzel 16:24 13:56 new denzel denzel 16:24 13:56 have improved denzel denzel 16:24 13:56 Standard denzel denzel 16:24 13:56 denzel denzel 16:24 13:56 Heat syncope denzel denzel 16:24 13:56 Syncope Near denzel denzel 16:24 13:56 Weakness denzel denzel 16:24 13:56 Dementia in other diseases classified elsewhere without behavioral denzel disturbance denzel 16:24 13:56 Occlusion and stenosis of left carotid artery - internal denzel [facility] 16: 13:56 Unspecified kidney failure - renal insufficency [facility] 14:10 Lianna Mcgill cha denzel
[2023-02-27] MEDS ORDERED: ASPIRIN 81 MG CHEWABLE TABLET ONE (14:01)
[2023-02-27] MEDS ORDERED: ATORVASTATIN 20 MG TAB ONE (16:33)
[2023-02-27] MEDS ORDERED: CLOPIDOGREL 75 MG TABLET ONE (16:33)
[2023-02-27 17:28] VITALS: TEMP 98.3
[2023-02-27 17:30] VITALS: BP 183/97; O2SAT 98
--- NOTE | 2023-03-01 19:16 | EKG ---
Test Date: 2023-02-27 Test Time: 11:32:59 Supply Chain Associate: LIZZY MEASUREMENT RESULTS: Intervals: Rate: 82 DC: 188 QRSD: 134 QT: 434 QTc: 507 [place]: P: 32 DC: 188 QRS: -9 T: 31 INTERPRETIVE STATEMENTS: Sinus rhythm with frequent premature ventricular complexes Right bundle branch block Abnormal ECG Compared to ECG 02/24/2023 11:15:58 Ventricular premature complex(es) now present Electronically Signed On 03-01-23 19:11:47 CDT by Adrian Martin
== END 2023-02-27 17:00 | disposition home or self-care (01) ==
LOC: ER 11:23
DX: T67.1XXA Heat syncope, initial encounter (principal); I65.22 Occlusion and stenosis of left carotid artery; N19 Unspecified kidney failure; I10 Essential (primary) hypertension; E11.9 Type 2 diabetes mellitus without complications; F03.90 Unspecified dementia, unspecified severity, without behavioral disturbance, psychotic disturbance, mood disturbance, and anxiety; Z86.73 Personal history of transient ischemic attack (TIA), and cerebral infarction without residual deficits; Z95.0 Presence of cardiac pacemaker; Z88.5 Allergy status to narcotic agent; Z88.8 Allergy status to other drugs, medicaments and biological substances
CPT/HCPCS: 96365; 93005; 85025; 80048; 36415; 83735; 85610; 80061; 82947; 80076; 84484; 83880; 70450; 71250; 72125; 71045; 93880; 96375; 99291; 99292; 96366; J3411 ×2; J1720; J7030 ×2

== ENCOUNTER 2023-05-15 13:04 | Emergency (ER) | payer OTHER ==
--- OUTSIDE RECORDS SUMMARY | 2023-05-15 13:19 | XMS REPORT | Continuity of Care Document ---
:1935 Author Organization [facility] t Address [address] [place] [address] Care Team Providers Name Role Phone No MD, Pcp [facility] Primary Care Physician Unavailable JUAQUIN MCINTYRE Attending Clinician Unavailable HARINI BETANCOURT Attending Clinician Unavailable HARINI BETANCOURT Attending Clinician Unavailable GILBERT WINSTON Attending Clinician Unavailable Inez Hylton MD Attending Clinician INEZ HYLTON Attending Clinician Unavailable Doctor Unassigned, [place] Attending Clinician Unavailable JARVIS MILLIGAN Attending Clinician Unavailable Liza Zarco Attending Clinician Raul Rosen MD Attending Clinician Jarvis Milligan MD Attending Clinician CASSIUS PINK Attending Clinician Unavailable DAYAMI LOVE Attending Clinician Unavailable Dayami Whitman Attending Clinician [phone] Pob, [facility] Main Attending Clinician [...] Kevin Db Test Attending Clinician Unavailable Pavan BATRES, Jud Attending Clinician JUD BROWNE Attending Clinician Unavailable JUAQUIN MCINTYRE Admitting Clinician Unavailable HARINI BETANCOURT Admitting Clinician Unavailable INEZ HYLTON Admitting Clinician Unavailable JARVIS MILLIGAN Admitting Clinician Unavailable Chel GABRIEL, Jarvis Admitting Clinician STACEY OLIVAS Admitting Clinician Unavailable ACACIA DEL TORO Admitting Clinician Unavailable Annie GABRIEL, Acacia Landaverde Admitting Clinician LUIS E DOMINGUEZ Admitting Clinician Unavailable Payers Payer Name Policy Type Policy Number Effective Date Expiration Date S dianelys MEDICARE PART A AND [id number] 1998 B 00:00:00 MEDICARE A B [id number] 1998 00:00:00 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 2-14 it y of 00:00: [place] [address] Medical Branch At high At high Disease Active Univers risk for risk for 2-14 ity of seizures seizures 00:00: [place] [address] Medical Branch SUBDURAL SUBDURAL Diagnosis Active 2022-10-10 Memoria RADHA RADHA 10-10 12:36:00 l Active 00:00: Austyn 10/10/2022 00 [facility] TSDH Diagnosis Active 2022-10-11 Mem oria Active 10-10 12:26:00 l 10/10/2022 00:00: Jax RAHMAN [place] 00 [facility] Sick sinus Sick sinus Disease Active [...] Added automatic ally from request for surgery [id number] Syncope Syncope Disease Active Overview: Univ ers and and 09-13 Formattin ity of collapse collapse 00:00: g of this [place] 00 note Medical might be Branch different from the original. 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 ICD10 Diagnosis [employer] Esophageal Esophageal Disease Active 2005-09 U nivers reflux reflux 1-15 ity of 00:00: [place] 00 Medical Branch Diabetic Diabetic Disease Active 2005-09 Overview: [place] polyneurop polyneurop 1-15 Formattin ity of athy athy 00:00: g of this [place] 00 note Medical might be Branch different from the original. 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 ICD10 Diagnosis [employer] Hypertensi Hypertens Problem Resolve 2018-10-22 Memoria ve sudeep d 15:27:05 l disorder, disorder, Herm roxanne systemic systemic arterial arterial (disorder) (disorder) Resolved Problem 10/22/2018 [facility] NONTRAUMAT NONTRAUMA Diagnosis Active 2018-02-16 [facility] IC ACUTE TIC ACUTE 22:05:00 l SUBDURAL SUBDURAL Jax n HEMORRHAGE HEMORRHAGE Active [facility] NONTRAUMAT NONTRAUMA Diagnosis Active 2018-02-26 Memoria IC CHRONIC TIC 12:06:00 l SUBDURAL CHRONIC Austyn HEMORRHAGE SUBDURAL HEMORRHAGE Active [facility] FALL FALL Diagnosis Active 2018-02-19 Mem oria Active 03:11:00 l [facility] TRAUM TRAUM Diagnosis Active 2022-10-11 [facility] oria SUBDR HEM SUBDR HEM 12:26:00 l WITH LOC WITH LOC Jax n STATUS STATUS UNKNOWN, UNKNOWN, Active [facility] Allergies, Adverse Reactions, Alerts Allergy Allergy [...] NE HCL INGREDI 3-10 ity of 00:00: [place] [address] Medical Branch Meperidi Propensi Active Unknown - [...] ALLERGIE S codeine codeine Active Memoria l [place] Demerol Demerol Active Memoria HCl HCl l [place] Family History Family Member Diagnosis Comments Start Date Stop Date Source Natural father High blood pressure C HI [facility] Social History Social Habit Start Date Stop Date Quantity Comments Source History SDOH Social Unive rsity of Connections [facility] Med ical Together Branch History SDOH Social Unive rsity of Connections [facility] Medical Branch History SDOH Social Unive rsity [...] ity of Scarcity 00:00:00 00:00:00 [place] [facility] [place] Tobacco use and 2022-08-03 2022-08-03 Smokeless Universit y of exposure 00:00:00 00:00:[address] tobacco non-user [facility] dical Branch History [facility] 2020-03-27 2020-03-[address] [facility] Alcohol Frequency 00:00:00 00:00:00 [facility] Alcohol intake 2020-03-26 2020-03-[address] [facility] 00:00:00 00:00:00 non-drinker of Medical Ce nter alcohol (finding) Social History 2018-02-19 2018-02-19 [facility] 11:13:34 11:13:34 Sex Assigned At [address] [facility] 00:00:00 00:00:00 [facility] Smoking Status Start Date Stop Date Source Never smoked tobacco [facility] Medications Ordered Filled Start Stop Current Ordering Indication Dosage Frequency Signature Comments Components Source Medication Medication Date Date Medication? Clinician (SIG) Name Name amLODIPine Yes 5mg Take 5 mg [place] 5 mg tablet 2-21 by mouth ity of 17:33: at [place] [address] bedtime. Medical Branch aspirin 81 2022-0 Yes 81mg Take 81 mg U nivers mg EC 2-21 by mouth ity of tablet 17:33: in the [place] [address] morning. Medical Branch lisinopriL 2022-0 Yes 20mg Take 20 mg U nivers 20 mg 2-21 by mouth ity of tablet 17:33: in the [place] [address] morning Medical and 20 mg Branch in the evening. metFORMIN 2022-0 Yes 500mg Take 500 Uni vers 500 mg 2-21 mg by ity of tablet 17:33: mouth in [place] [address] the Medical morning Branch and 500 mg in the evening. Take with meals. pantoprazol 2022-0 Yes 40mg Take 40 mg Univers e 2-21 by mouth ity of (PROTONIX) 17:33: in the [place] 20 mg EC 53 morning. Medical tablet Branch tamsulosin 2022-0 Yes Take by [facility] [place] ers (FLOMAX) 2-21 mouth ity of 0.4 mg 24 17:33: daily. [place] hr capsule 53 Medical Branch FLUoxetine 2022-0 Yes 20mg Take 20 mg U nivers 20 mg 2-21 by mouth ity of capsule 17:33: in the [place] [address] morning. Medical Branch gabapentin 2022-0 Yes 300mg Take 300 Un teo 300 mg 2-21 mg by ity of capsule 17:33: mouth 2 [place] 53 (two) Medical times Branch daily as needed. memantine 2022-0 Yes 10mg Take 10 mg [place] 10 mg 2-21 by mouth ity of tablet 17:33: in the [place] [address] morning Medical and 10 mg Branch in the evening. simvastatin 2022-0 Yes 20mg Take 20 mg Univers 20 mg 2-21 by mouth ity of tablet 17:33: at [place] [address] bedtime. Medical Branch amLODIPine 2022-0 Yes 5mg Take 5 mg [place] 5 mg tablet 2-21 by mouth ity of 17:33: at [place] [address] bedtime. Medical Branch aspirin 81 2022-0 Yes 81mg Take 81 mg U nivers mg EC 2-21 by mouth ity of tablet 17:33: in the [place] [address] morning. Medical Branch lisinopriL 2022-0 Yes 20mg Take 20 mg U nivers 20 mg 2-21 by mouth ity of tablet 17:33: in the [place] [address] morning Medical and 20 mg Branch in the evening. metFORMIN 2022-0 Yes 500mg Take 500 Uni vers 500 mg 2-21 mg by ity of tablet 17:33: mouth in [place] [address] the Medical morning Branch and 500 mg in the evening. Take with meals. pantoprazol 2022-0 Yes 40mg Take 40 mg Univers e 2-21 by mouth ity of (PROTONIX) 17:33: in the [place] 20 mg EC 53 morning. Medical tablet Branch tamsulosin 2022-0 Yes Take by [facility] [place] ers (FLOMAX) 2-21 mouth ity of 0.4 mg 24 17:33: daily. [place] hr capsule 53 Medical Branch FLUoxetine 2022-0 Yes 20mg Take 20 mg U nivers 20 mg 2-21 by mouth ity of capsule 17:33: in the [place] [address] morning. Medical Branch gabapentin 2023-0 Yes 300mg Take 300 Un te[place] 300 mg 2-21 mg by ity of capsule 17:33: mouth 2 [place] [address] (two) Medical times Branch daily as needed. memantine 2023-0 Yes 10mg Take 10 mg Un te[place] 10 mg 2-21 by mouth ity of tablet 17:33: in the [place] [address] morning Medical and 10 mg Branch in the evening. simvastatin 2023-0 Yes 20mg Take 20 mg Univers 20 mg 2-21 by mouth ity of tablet 17:33: at [place] [address] bedtime. Medical Branch amLODIPine 2023-0 Yes 5mg Take 5 mg Un te[place] 5 mg tablet 2-21 by mouth ity of 17:33: at [place] [address] bedtime. Medical Branch aspirin 81 3-0 Yes 81mg Take 81 mg U nivers mg EC 2-21 by mouth ity of tablet 17:33: in the [place] [address] morning. Medical Branch lisinopriL 3-0 Yes 20mg Take 20 mg U nivers 20 mg 2-21 by mouth ity of tablet 17:33: in the [place] [address] morning Medical and 20 mg Branch in the evening. metFORMIN 2023-0 Yes 500mg Take 500 Uni vers 500 mg 2-21 mg by ity of tablet 17:33: mouth in [place] [address] the Medical morning Branch and 500 mg in the evening. Take with meals. pantoprazol 3-0 Yes 40mg Take 40 mg Univers e 2-21 by mouth ity of (PROTONIX) 17:33: in the [place] 20 mg EC morning. Medical tablet Branch tamsulosin 2022-0 Yes Take by [facility] [place] ers (FLOMAX) 2-21 mouth ity of 0.4 mg 24 17:33: daily. [place] hr capsule 53 Medical Branch FLUoxetine 3-0 Yes 20mg Take 20 mg U nivers 20 mg 2-21 by mouth ity of capsule 17:33: in the [place] [address] morning. Medical Branch gabapentin 3-0 Yes 300mg Take 300 Un te[place] 300 mg 2-21 mg by ity of capsule 17:33: mouth 2 [place] [address] (two) Medical times Branch daily as needed. memantine 2023-0 Yes 10mg Take 10 mg Un [place] 10 mg 2-21 by mouth ity of tablet 17:33: in the [place] [address] morning Medical and 10 mg Branch in the evening. simvastatin 2022-0 Yes 20mg Take 20 mg Univers 20 mg 2-21 by mouth ity of tablet 17:33: at [place] [address] bedtime. Medical Branch amLODIPine 2022-0 Yes 5mg Take 5 mg Un te[place] 5 mg tablet 2-21 by mouth ity of 17:33: at [place] [address] bedtime. Medical Branch aspirin 81 2022-0 Yes 81mg Take 81 mg U nivers mg EC 2-21 by mouth ity of tablet 17:33: in the [place] [address] morning. Medical Branch lisinopriL 2022-0 Yes 20mg Take 20 mg U nivers 20 mg 2-21 by mouth ity of tablet 17:33: in the [place] [address] morning Medical and 20 mg Branch in the evening. metFORMIN 2022-0 Yes 500mg Take 500 Uni vers 500 mg 2-21 mg by ity of tablet 17:33: mouth in [place] [address] the Medical morning Branch and 500 mg in the evening. Take with meals. pantoprazol 2022-0 Yes 40mg Take 40 mg Univers e 2-21 by mouth ity of (PROTONIX) 17:33: in the [place] 20 mg EC morning. Medical tablet Branch tamsulosin 2022-0 Yes Take by [facility] [place] ers (FLOMAX) 2-21 mouth ity of 0.4 mg 24 17:33: daily. [place] hr capsule Medical Branch FLUoxetine 2022-0 Yes 20mg Take 20 mg U nivers 20 mg 2-21 by mouth ity of capsule 17:33: in the [place] [address] morning. Medical Branch gabapentin 2022-0 Yes 300mg Take 300 Un te[place] 300 mg 2-21 mg by ity of capsule 17:33: mouth 2 [place] [address] (two) Medical times Branch daily as needed. memantine 2022-0 Yes 10mg Take 10 mg Un te[place] 10 mg 2-21 by mouth ity of tablet 17:33: in the [place] [address] morning Medical and 10 mg Branch in the evening. simvastatin 2022-0 Yes 20mg Take 20 mg Univers 20 mg 2-21 by mouth ity of tablet 17:33: at [place] [address] bedtime. Medical Branch levETIRAcet 2022-0 2023- No 250mg Take 250 Univers am (KEPPRA) 2-21 02-21 mg by ity of 250 mg 13:41: 00:00 mouth in [place] tablet 41 :00 the [facility] and 250 mg in the evening. levETIRAcet 2022- No [id number] 500mg Take 1 Univers am 500 mg 11-01 tablet by ity of tablet 00:00: 04:59 mouth in [place] 00 :00 the [facility] and 1 tablet in the evening. Do all this for 90 days. levETIRAcet 2022- No [id number] 500mg Take 1 Univers am 500 mg 11-01 tablet by ity of tablet 00:00: 04:59 mouth in [place] 00 :00 the [facility] and 1 tablet in the evening. Do all this for 90 days. levETIRAcet 0 2022- No [id number] 500mg Take 1 Univers am 500 mg 11-01 tablet by ity of tablet 00:00: 04:59 mouth in [place] 00 :[address] [facility] and 1 tablet in the evening. Do all this for 90 days. levETIRAcet 2022- No [id number] 500mg Take 1 Univers am 500 mg 11-01 tablet by ity of tablet 00:00: 04:59 mouth in [place] 00 :00 [facility] and 1 tablet in the evening. Do all this for 90 days. levETIRAcet Yes 500mg 500 mg, Un te[place] am (KEPPRA) 2-20 Oral, BID, it y of tablet 500 02:00: First dose [place] mg 00 on [facility] 10/30/22 at Branch 1999, Until Discontinu ed, Routine morpHINE (2 Yes 2mg 2 mg, Slow Univers mg/mL) 2-17 IV Push, ity of injection 2 02:52: Q4HPRN, [place] mg 02 Starting Medical on [facility] Branch 10/27/22 at 2051, Until Discontinu ed, Routine, Pain (scale 7-10) heparin Yes 5000U 5,000 Univers (porcine) 2-16 Units, ity of injection 20:00: Subcutaneo [place] 5,000 Units 00 us, Q8H, Medi joyce First dose Branch on [facility] 10/27/22 at 1400, Until Discontinu ed, Routine metoprolol 2023-0 Yes 25mg 25 mg, Unive rs tartrate 2-16 Oral, BID, ity o f (LOPRESSOR) 02:00: First dose [place] tablet 25 00 on 10/26/22 at Branch 2000, Until Discontinu ed, Routine metoprolol 2022-0 2022- No [id number] 25mg Take 1 Univers tartrate 25 2-16 -19 tablet by it y of mg tablet 00:00: 04:59 mouth in [place] 00 :00 the [facility] and 1 tablet in the evening. Do all this for 30 days. metoprolol 2022-0 2022- No [id number] 25mg Take 1 Univers tartrate 25 2-16 -19 tablet by it y of mg tablet 00:00: 04:59 mouth in [place] 00 :00 the [facility] morning Branch and 1 tablet in the evening. Do all this for 30 days. metoprolol 2022-0 2022- No [id number] 25mg Take 1 Univers tartrate 25 -16 -19 tablet by it y of mg tablet 00:00: 04:59 mouth in [place] 00 :00 the [facility] and 1 tablet in the evening. Do all this for 30 days. KCL 2022-2022- No 40meq 40 mEq, Univers (KLOR-CON 10-26-15 Oral, ity of M20) tablet 05:45: 05:18 ONCE, 1 [place] 40 mEq 00 :00 dose, On [facility] 10/25/22 at 2345, Routine magnesium 2022- No [...] dose [place] mg 00 on Mon [facility] 10/25/22 at Branch 2100, Until Discontinu ed, Routine amLODIPine 2022-0 Yes 5mg 5 mg, Univer s (NORVASC) 2-15 Oral, QHS, ity of tablet 5 mg 03:00: First dose [place] 00 on [facility] 10/25/22 at Branch 2100, Until Discontinu ed, Routine phytonadion 2022-0 2023- No 10mg IV Unive rs e (VITAMIN 2-14 10-25 Piggyback, it y of K) 10 mg in 16:45: 18:08 ONCE, 1 [place] NaCl 0.9% 00 :00 dose, On Medica l (NS) [facility] piggyback 10/25/22 at 1045, 50 mL NaCl [...] 01 Starting Medical on [facility] 10/25/22 at 0949, Until Discontinu ed, Routine, line maintenanc e lidocaine 2022-0 Yes 5mL 5 mL, Univers 1% (PF) -14 Subcutaneo ity of (XYLOCAINE) 15:49: us, PRN, [place] injection 5 01 Starting Medi joyce mL on [facility] 10/25/22 at 0949, Until Discontinu ed, Routine, Local anesthesia tamsulosin 2022-0 Yes .4mg 0.4 mg, Univ ers (FLOMAX) 2-14 Oral, ity of capsule 0.4 15:00: DAILY, [place] mg 00 First dose Medical on [facility] 10/25/22 at 0900, Until Discontinu ed, Routine pantoprazol 2022-0 Yes 40mg 40 mg, Univ ers e 2-14 Oral, ity of (PROTONIX) 15:00: DAILY, [place] EC tablet 00 First dose Medi joyce 40 mg on [facility] 10/25/22 at 0900, Until Discontinu ed, Routine FLUoxetine 2022-0 Yes 20mg 20 mg, Unive rs (PROZAC) 2-14 Oral, ity of capsule 20 15:00: DAILY, [place] mg 00 First dose Medical on [facility] 10/25/22 at 0900, Until Discontinu ed, Routine metFORMIN Yes 500mg 500 mg, Univ ers (GLUCOPHAGE 2-14 Oral, BID ity of ) tablet 14:00: MEALS, [place] 500 mg 00 First dose Medical on [facility] 10/25/22 at 0800, Until Discontinu ed, Routine memantine Yes 10mg 10 mg, Univer s (NAMENDA) 2-14 Oral, BID, ity of tablet 10 14:00: First dose [place] mg 00 on [facility] 10/25/22 at Branch 0800, Until Discontinu ed, Routine
sales team member approving Restricted medication : JARVIS MILLIGAN lisinopriL Yes 20mg 20 mg, Unive rs (PRINIVIL,Z 2-14 Oral, BID, it y of ESTRIL) 14:00: First dose [place] tablet 20 00 on [facility] mg 10/25/22 at Branch 0800, Until Discontinu ed, Routine gabapentin Yes 200mg 200 mg, Uni vers (NEURONTIN) 2-14 Oral, TID, it y of capsule 200 14:00: First dose [place] mg 00 on [facility] 10/25/22 at Branch 0800, Until Discontinu ed, Routine levETIRAcet 2022- No 500mg 500 mg, IV Univers am (KEPPRA) 10-2520 Piggyback, i ty of in NACL 14:00: 01:39 Q12H, [place] (ISO-OS) 00 :32 First dose Medic al 500 mg/100 on [facility] mL RTU 10/25/22 at 0800, Until Discontinu ed, Administer over 15 Minutes, 100 mL carvediloL 2022- No 6.25mg 6.25 mg, Univers (COREG) 10-25-15 Oral, BID ity of tablet 6.25 14:00: 21:58 MEALS, [place] mg 00 :13 First dose Medical on [facility] 10/25/22 at 0800, Until Discontinu ed, Routine Sliding Yes Subcutaneo Univ ers Scale 2-14 us, AC+HS, ity of Insulin-Reg 13:30: First dose [place] ular + Fsbg 00 on Mon Medica l Testing 10/25/22 at Branch 0730, Until Discontinu ed, Routine iopamidol 2022- No [id number] 80mL 80 mL, U nivers (ISOVUE -14 [...] ity of bolus 07:07: PRN - SEE [place] infusion 04 INSTRUCTIO Medic al 250 mL [...] 00 Starting Medical injection 1 on Mon [facility] 10/25/22 at 0107, Until Discontinu ed, [...] Medi joyce mg on [facility] 10/25/22 at 0056, Until Discontinu ed, Routine, Nausea and Vomiting (N/V) acetaminoph 2022-0 Yes 650mg 650 mg, Un teo en 10-25 Oral, ity of (TYLENOL) 06:55: Q6HPRN, [place] tablet 650 49 Starting Medic al mg on [facility] 10/25/22 at 0055, Until Discontinu ed, Routine, Pain (scale 1-3) cefTRIAXone 2022-0 2023- No 1000mg 1,000 mg, Univers (ROCEPHIN) 10-25 IV ity of 1,000 mg in 01:00: 01:42 Piggyback, [place] NaCl 0.9% 00 :00 ONCE, 1 Medical (NS) 50 mL dose, On [facility] MINI-BAG [facility] 10/24/22 at 1900, Administer over 30 Minutes, 50 mL
Reas on for Anti-Infec tive: Documented Infection< br>Documen timur Infection Site: Urine<br&g t;Duration of Therapy: Other (see Comments) LORazepam 2022-0 2022- No 1mg 1 mg, Slow U nivers (ATIVAN) 10-25 IV Push, ity of injection 1 01:00: 01:09 ONCE, 1 [place] mg 00 :00 dose, On [facility] 10/24/22 at 1900, STAT amLODIPine 2022-0 Yes 5mg Take 5 mg [place] 5 mg tablet 10-08 by mouth ity of 13:19: at [place] [address] bedtime. Medical Branch aspirin 81 2022-0 Yes 81mg Take 81 mg U nivers mg EC 10-08 by mouth ity of tablet 13:19: in the [place] [address] morning. Medical Branch lisinopriL 2022-0 Yes 20mg Take 20 mg U nivers 20 mg 10-08 by mouth ity of tablet 13:19: in the [place] [address] morning Medical and 20 mg Branch in the evening. metFORMIN 2022-0 Yes 500mg Take 500 Uni vers 500 mg 1-28 mg by ity of tablet 13:19: mouth in [place] [address] the Medical morning Branch and 500 mg in the evening. Take with meals. pantoprazol 2022-0 Yes 40mg Take 40 mg Univers e 10-08 by mouth ity of (PROTONIX) 13:19: in the [place] 20 mg EC morning. Medical tablet Branch tamsulosin 2022-0 Yes Take by [facility] [place] ers (FLOMAX) 10-08 mouth ity of 0.4 mg 24 13:19: daily. [place] hr capsule 28 Medical Branch FLUoxetine 2022-0 Yes 20mg Take 20 mg U nivers 20 mg 10-08 by mouth ity of capsule 13:19: in the [place] [address] morning. Medical Branch gabapentin 2022-0 Yes 300mg Take 300 Un teo 300 mg - mg by ity of capsule 13:19: mouth 2 [place] [address] (two) Medical times Branch daily as needed. levETIRAcet 2022-0 Yes 250mg Take 250 U nivers am (KEPPRA) 10-08 mg by ity of 250 mg 13:19: mouth in [facility] 28 the Medical morning Branch and 250 mg in the evening. memantine 2022-0 Yes 10mg Take 10 mg Un [place] 10 mg 10-08 by mouth ity of tablet 13:19: in the [place] [address] morning Medical and 10 mg Branch in the evening. simvastatin 2022-0 Yes 20mg Take 20 mg Univers 20 mg 10-08 by mouth ity of tablet 13:19: at [place] [address] bedtime. Medical Branch amLODIPine 2022-0 Yes 5mg Take 5 mg [place] 5 mg tablet 10-08 by mouth ity of 13:19: at [place] [address] bedtime. Medical Branch aspirin 81 2022-0 Yes 81mg Take 81 mg U nivers mg EC 10-08 by mouth ity of tablet 13:19: in the [place] [address] morning. Medical Branch lisinopriL 2022-0 Yes 20mg Take 20 mg U nivers 20 mg 10-08 by mouth ity of tablet 13:19: in the [place] [address] morning Medical and 20 mg Branch in the evening. metFORMIN 2022-0 Yes 500mg Take 500 Uni vers 500 mg - mg by ity of tablet 13:19: mouth in [place] [address] the Medical morning Branch and 500 mg in the evening. Take with meals. pantoprazol 3-0 Yes 40mg Take 40 mg Univers e 10-08 by mouth ity of (PROTONIX) 13:19: in the [place] 20 mg EC 28 morning. Medical tablet Branch tamsulosin 2022-0 Yes Take by [facility] [place] ers (FLOMAX) 10-08 mouth ity of 0.4 mg 24 13:19: daily. [place] hr capsule Medical Branch FLUoxetine 2022-0 Yes 20mg Take 20 mg U nivers 20 mg 10-08 by mouth ity of capsule 13:19: in the [place] [address] morning. Medical Branch gabapentin 2022-0 Yes 300mg [...] mouth ity of tablet 13:19: in the [place] [address] morning Medical and 10 mg Branch in the evening. simvastatin 2022-0 Yes 20mg Take 20 mg Univers 20 mg 10-08 by mouth ity of tablet 13:19: at [place] [address] bedtime. Medical Branch amLODIPine 2022-0 Yes 5mg Take 5 mg [place] 5 mg tablet 10-08 by mouth ity of 13:19: at [place] [address] bedtime. Medical Branch aspirin 81 2022-0 Yes 81mg Take 81 mg U nivers mg EC 10-08 by mouth ity of tablet 13:19: in the [place] [address] morning. Medical Branch lisinopriL 2022-0 Yes 20mg Take 20 mg U nivers 20 mg 10-08 by mouth ity of tablet 13:19: in the [place] [address] morning Medical and 20 mg Branch in [...] tablet Branch tamsulosin 2022-0 Yes Take by [facility] [place] ers (FLOMAX) 10-08 mouth ity of 0.4 mg 24 13:19: daily. [place] hr capsule 28 Medical Branch FLUoxetine 2022-0 Yes 20mg Take 20 mg U nivers 20 mg 10-08 by mouth ity of capsule 13:19: in the [place] [address] morning. Medical Branch gabapentin 2022-0 Yes 300mg Take 300 [place] 300 mg - mg by ity of capsule 13:19: mouth 2 [place] [address] (two) Medical times Branch daily as needed. levETIRAcet 2022-0 Yes 250mg Take 250 U nivers am (KEPPRA) 1- mg by ity of 250 mg 13:19: mouth in [facility] 28 the Medical morning Branch and 250 mg in the evening. memantine 0 Yes 10mg Take 10 mg [place] 10 mg 10-08 by mouth ity of tablet 13:19: in the [place] morning Medical and 10 mg Branch in the evening. simvastatin 0 Yes 20mg Take 20 mg Univers 20 mg 10-08 by mouth ity of tablet 13:19: at [place] [address] bedtime. Medical Branch Sliding Yes Subcutaneo Univ [...] 03:45: First dose [place] 00 on Mon [facility] 10/07/22 at Branch 2145, Until Discontinu ed, [...] First dose [place] 00 :30 on Mon [facility] 10/07/22 at Branch 2145, Until Discontinu ed, [...] mental changes. sennosides- Yes 1{tbl} 1 tablet, [facility] docusate 10-07 Oral, ity of sodium 15:00: [...] Until Discontinu ed, Routine hydralAZINE 2022- No [id number] 10mg 10 mg, Univers (APRESOLINE 10-07 Slow IV ity of ) injection 12:15: 11:26 [place] 10 mg 00 :00 ONCE, 1 Medical dose, On Branch Mon10/07/22 at 0615, STAT hydralAZINE 2022- No [id number] 10mg 10 mg, Univers (APRESOLINE 10-07 Slow IV ity of ) injection 12:15: 11:26 [place] 10 mg 00 :00 ONCE, 1 Medical dose, On Branch Mon10/07/22 at 0615, STAT simvastatin Yes 20mg 20 mg, Univ ers (ZOCOR) 10-07 Oral, QHS, ity of tablet 20 03:00: First dose [place] mg 00 on [facility] 10/06/22 at [place] 2099, Until Discontinu ed, Routine amLODIPine Yes 5mg 5 mg, Univer s (NORVAS) 10-07 Oral, QHS, ity of tablet 5 mg 03:00: First dose [place] 00 on [facility] 10/06/22 at [place] 2099, Until Discontinu ed, Routine simvastatin 2022- No 20mg 20 mg, Uni vers (ZOCOR) 10-07 Oral, QHS, ity o f tablet 20 03:00: 21:19 First dose [place] mg 00 :30 on [facility] 10/06/22 at [place] 2099, Until Discontinu ed, Routine amLODIPine 2022- No 5mg 5 mg, [facility] 10-[facility] Oral, QHS, ity of tablet 5 mg 03:00: 21:19 First dose [place] 00 :30 on [facility] 10/06/22 at [place] 2099, Until Discontinu ed, Routine levETIRAcet Yes 250mg 250 mg, Un te[place] am (KEPPRA) 10-07 Oral, BID, it y of tablet 250 02:00: First dose [place] mg 00 on [facility] 10/06/22 at [place] 1999, Until Discontinu ed, Routine levETIRAcet 2022- No 250mg 250 mg, U nivers am (KEPPRA) 10-07 Oral, BID, i ty of tablet 250 02:00: 21:19 First dose [place] mg 00 :30 on [facility] 10/06/22 at [place] 2000, Until Discontinu ed, Routine carvediloL 2022- No [id number] 6.25mg Take 1 Univers 6.25 mg 10-07 tablet by ity of tablet 00:00: 05:59 mouth in [place] 00 :00 the Medical morning Branch and 1 tablet in the evening. Take with meals. Do all this for 30 days. carvediloL 2022- No [id number] 6.25mg Take 1 Univers 6.25 mg 1-27 02-27 tablet by ity of tablet 00:00: 05:59 mouth in [place] 00 :00 the Medical morning Branch and 1 tablet in the evening. Take with meals. Do all this for 30 days. carvediloL 2022-0 3- No [id number] 6.25mg Take 1 Univers 6.25 mg -27 -27 tablet by ity of tablet 00:00: 05:59 mouth in [place] 00 :00 the Medical morning Branch and 1 tablet in the evening. Take with meals. Do all this for 30 days. carvediloL 2022-0 2022- No [id number] 6.25mg Take 1 Univers 6.25 mg 10-07 02-16 tablet by ity of tablet 00:00: 00:00 mouth in [place] 00 :00 the [facility] morning Branch and 1 tablet in the [...] :00 ONCE, 1 Medical dose, On Branch [facility] 10/06/22 at 1400, STAT hydralAZINE 2022-0 2022- No 10mg 10 mg, Uni vers (APRESOLINE 10-06 Slow IV ity of ) injection 20:00: 19:15 [place] 10 mg 00 :00 ONCE, 1 Medical dose, On Branch [facility] 10/06/22 at 1400, STAT carvediloL 2022-0 Yes [...] Medical mg last Branch modificati on) on [facility] 10/06/22 at 1145, Until Discontinu ed, Routine lisinopriL 2022-0 2022- No 20mg 20 mg, Univ ers (PRINIVIL,Z 10-06 Oral, BID, i ty of ESTRIL) 17:45: 21:19 First dose [place] tablet 20 00 :30 (after Medical mg last Branch modificati on) on [facility] 10/06/22 at 1145, Until Discontinu ed, Routine acetaminoph 2022-0 Yes 650mg 650 mg, [place] te[place] en 10-06 Oral, ity of (TYLENOL) 17:33: Q6HPRN, [place] tablet 650 13 Starting Medic al mg on [facility] Branch 10/06/22 at 1133, Until Discontinu ed, Routine, Pain (scale 1-3) acetaminoph 2022-0 2022- No 650mg 650 mg, U nivers en 10-06 Oral, ity of (TYLENOL) 17:33: 21:19 Q6HPRN, [place] tablet 650 13 :30 Starting Medic al mg on [facility] Branch 10/06/22 at 1133, Until 10/08/22 at [...] Pain (scale 4-6) hydralAZINE 2022-0 2022- No [id number] 10mg 10 mg, Univers (APRESOLINE 10-06 Slow IV ity of ) injection 17:30: 16:31 [place] 10 mg 00 :00 ONCE, 1 Medical dose, On Branch [facility] 10/06/22 at 1130, STAT hydralAZINE 0 2022- No [id number] 10mg 10 mg, Univers (APRESOLINE 10-06 Slow IV ity of ) injection 17:30: 16:31 [place] 10 mg 00 :00 ONCE, 1 Medical dose, On Branch [facility] 10/06/22 at 1130, STAT lidocaine 2022- No ONCE INTRA U nivers 1% (PF) 10-06 PROCEDURE, ity o f (XYLOCAINE) 14:22: 15:52 [place] injection 52 :21 on [facility] 10/06/22 at Branch 0822, Until [place] 10/06/22 at 0952, Routine, CV Intraproce dure iodixanol 2022- No ONCE INTRA U nivers (VISIPAQUE 10-06 PROCEDURE, it y of 320-100 mL) 14:03: 15:52 Starting [place] injection 41 :21 on [facility] Medical 10/06/22 at Branch 0803, Until [place] 10/06/22 at 0952, Routine, CV Intraproce dure hydralAZINE 2022-0 2022- No [id number] 10mg Inject 0.5 Univers 20 mg/mL 10-06 mL ity of injection 00:00: 00:00 intravenou [place] 00 :00 sly once Medical now for 1 Branch dose. hydralAZINE 2022- No [id number] 10mg Inject 0.5 Univers 20 mg/mL 10-06 01-27 mL ity of injection 00:00: 00:00 intravenou [place] 00 :00 sly once Medical now for 1 Branch dose. amitriptyli 2021-09- No [id number] 25mg Take 1 Univers ne 25 mg 0-23 10-31 tablet by ity o f tablet 00:00: 04:59 mouth at [place] 00 :00 bedtime Medical for 7 Branch days. amitriptyli 2021-09- No [id number] 25mg Take 1 Univers ne 25 mg 0-23 10-31 tablet by ity o f tablet 00:00: 04:59 mouth at [place] 00 :00 bedtime Medical for 7 Branch days. amitriptyli 2021-09- No [id number] 25mg Take 1 Univers ne 25 mg 0-23 10-31 tablet by ity o f tablet 00:00: 04:59 mouth at [place] 00 :00 bedtime Medical for 7 Branch days. amitriptyli 2021-09- No [id number] 25mg Take 1 Univers ne 25 mg [...] Until Discontinu ed, Routine pantoprazol 2021-09- No [id number] 40mg Take 1 Univers e 0-16 01-15 tablet by ity of (PROTONIX) 00:00: 05:59 mouth in [place] 40 mg EC 00 :00 the Medical tablet morning Branch for 90 days. vitamin 2021-09- No [id number] 1000ug Take 1 U nivers B-12 1,000 0-16 01-15 tablet by ity of mcg tablet 00:00: 05:59 mouth in [place] 00 :00 the Medical morning Branch for 90 days. pantoprazol 2021-09- No [id number] 40mg Take 1 Univers e 0-16 01-15 tablet by ity of (PROTONIX) 00:00: 05:59 mouth in [place] 40 mg EC 00 :00 the Medical tablet morning Branch for 90 days. vitamin 2021-09- No [id number] 1000ug Take 1 U nivers B-12 1,000 0-16 01-15 tablet by ity of mcg tablet 00:00: 05:59 mouth in [place] 00 :00 the Medical morning Branch for 90 days. pantoprazol 2021-09- No [id number] 40mg Take 1 Univers e 0-16 01-15 tablet by ity of (PROTONIX) 00:00: 05:59 mouth in [place] 40 mg EC 00 :00 the Medical tablet morning Branch for 90 days. vitamin 2021-09- No [id number] 1000ug Take 1 U nivers B-12 1,000 0-16 01-15 tablet by ity of mcg tablet 00:00: 05:59 mouth in [place] 00 :00 the Medical morning Branch for 90 days. pantoprazol 2021-09- No [id number] 40mg Take 1 Univers e 0-16 01-15 tablet by ity of (PROTONIX) 00:00: 05:59 mouth in [place] 40 mg EC 00 :00 the Medical tablet morning Branch for 90 days. vitamin 2021-09- No [id number] 1000ug Take 1 U nivers B-12 1,000 0-16 01-15 tablet by ity of mcg tablet 00:00: 05:59 mouth in [place] 00 :00 the Medical morning Branch for 90 days. pantoprazol 2021-09- No [id number] 40mg Take 1 Univers e 0-16 01-15 tablet by ity of (PROTONIX) 00:00: 05:59 mouth in [place] 40 mg EC 00 :00 the Medical tablet morning Branch for 90 days. vitamin 2021-09- No [id number] 1000ug Take 1 U nivers B-12 1,000 0-16 01-15 tablet by ity of mcg tablet 00:00: 05:59 mouth in [place] 00 :00 the Medical morning Branch for 90 days. pantoprazol 2021-09- No [id number] 40mg Take 1 Univers e 0-16 01-15 tablet by ity of (PROTONIX) 00:00: 05:59 mouth in [place] 40 mg EC 00 :00 the Medical tablet morning Branch for 90 days. vitamin 2021-09- No [id number] 1000ug Take 1 U nivers B-12 1,000 0-16 01-15 tablet by ity of mcg tablet 00:00: 05:59 mouth in [place] 00 :00 the Medical morning Branch for 90 days. pantoprazol 2021-09- No [id number] 40mg Take 1 Univers e 0-16 01-15 tablet by ity of (PROTONIX) 00:00: 05:59 mouth in [place] 40 mg EC 00 :00 the Medical tablet morning Branch for 90 days. vitamin 2021-09- No [id number] 1000ug Take 1 U nivers B-12 1,000 0-16 01-15 tablet by ity of mcg tablet 00:00: 05:59 mouth in [place] 00 :00 the Medical morning Branch for 90 days. pantoprazol 2021-09- No [id number] 40mg Take 1 Univers e 0-16 01-15 tablet by ity of (PROTONIX) 00:00: 05:59 mouth in [place] 40 mg EC 00 :00 the Medical tablet morning Branch for 90 days. vitamin 2021-09- No [id number] 1000ug Take 1 U nivers B-12 1,000 0-16 01-15 tablet by ity of mcg tablet 00:00: 05:59 mouth in [place] 00 :00 the Medical morning Branch for 90 days. pantoprazol 2021-09- No [id number] 40mg Take 1 Univers e 0-16 01-15 tablet by ity of (PROTONIX) 00:00: 05:59 mouth in [place] 40 mg EC 00 :00 the Medical tablet morning Branch for 90 days. vitamin 2021-09- No [id number] 1000ug Take 1 U nivers B-12 1,000 0-16 01-15 tablet by ity of mcg tablet 00:00: 05:59 mouth in [place] 00 :00 the Medical morning Branch for 90 days. pantoprazol 2021-09- No [id number] 40mg Take 1 Univers e 0-16 01-15 tablet by ity of (PROTONIX) 00:00: 05:59 mouth in [place] 40 mg EC 00 :00 the Medical tablet morning Branch for 90 days. vitamin 2021-09- No [id number] 1000ug Take 1 U nivers B-12 1,000 0-16 01-15 tablet by ity of mcg tablet 00:00: 05:59 mouth in [place] 00 :00 the Medical morning Branch for 90 days. pantoprazol 2021-09- No [id number] 40mg Take 1 Univers e 0-16 01-15 tablet by ity of (PROTONIX) 00:00: 05:59 mouth in [place] 40 mg EC 00 :00 the Medical tablet morning Branch for 90 days. vitamin 2021-09- No [id number] 1000ug Take 1 U nivers B-12 1,000 0-16 01-15 tablet by ity of mcg tablet 00:00: 05:59 mouth in [place] 00 :00 the Medical morning Branch for 90 days. pantoprazol 2021-09- No [id number] 40mg Take 1 Univers e 0-16 01-15 tablet by ity of (PROTONIX) 00:00: 05:59 mouth in [place] 40 mg EC 00 :00 the Medical tablet morning Branch for 90 days. vitamin 2021-09- No [id number] 1000ug Take 1 U nivers B-12 1,000 0-16 01-15 tablet by ity of mcg tablet 00:00: 05:59 mouth in [place] 00 :00 the Medical [facility] Branch for 90 days. vitamin 2021-09 Yes [...] [facility] at 0900, Routine vitamin 2021-09 [...] 24 :00 Medical Branch metFORMIN 2021-09- No [id number] 500mg Take 1 Univers 500 mg 09-24 tablet by ity of tablet 00:00: 05:59 mouth in [place] 00 :00 the Medical morning Branch and 1 tablet in the evening. Take with meals. Do all this for 90 days. tamsulosin 2021-09- No [id number] .4mg Take 1 Univers 0.4 mg 24 09-24 capsule by ity of hr capsule 00:00: 05:59 mouth at [facility] 00 :00 bedtime Medical for 90 Branch days. amLODIPine 2021-09- No [id number] 5mg Take 1 Univers 5 mg tablet 09-24 tablet by it y of 00:00: 05:59 mouth at [place] 00 :00 bedtime Medical for 90 Branch days. levETIRAcet 2021-09- No [id number] 250mg Take 1 Univers am 250 mg - tablet by ity of tablet 00:00: 05:59 mouth in [place] 00 :00 the Medical morning Branch and 1 tablet in the evening. Do all this for 90 days. lisinopriL 2021-09- No [id number] 20mg Take 1 Univers 20 mg 0-15 -14 tablet by ity of tablet 00:00: 05:59 mouth in [place] 00 :00 the Medical morning Branch and 1 tablet in the evening. Do all this for 90 days. FLUoxetine 2021-09- No [id number] 20mg Take 1 Univers 20 mg 0-15 -14 capsule by ity of capsule 00:00: 05:59 mouth in [place] 00 :00 the [facility] Branch for 90 days. memantine 2021-09- No [id number] 10mg Take 1 U nivers 10 mg 0-15 -14 tablet by ity of tablet 00:00: 05:59 mouth in [place] 00 :00 the [facility] morning Branch and 1 tablet in the evening. Do all this for 90 days. pyridostigm 2021-09- No [id number] 60mg Take 1 Univers ine 60 mg 0-15 -14 tablet by ity of tablet 00:00: 05:59 mouth as [place] 00 :00 needed for Medical Other Branch (HYPOTENSI ON) for up to 90 days. simvastatin 2021-09- No [id number] 20mg Take 1 Univers 20 mg 0-15 -14 tablet by ity of tablet 00:00: 05:59 mouth at [place] 00 :00 bedtime Medical for 90 Branch days. aspirin 81 2021-09- No [id number] 81mg Take 1 Univers mg chewable 0-15 -14 tablet by it y of tablet 00:00: 05:59 mouth in [place] 00 :00 the [facility] morning [place] for 90 days. KCL 20 mEq 2021-09- No [id number] 40meq Take 2 Univers tablet 0-15 -14 tablets by ity of 00:00: 05:59 mouth in [place] 00 :00 the [facility] morning [place] for 90 days. metFORMIN 2021-093- No [id number] 500mg Take 1 Univers 500 mg 0-15 -14 tablet by ity of tablet 00:00: 05:59 mouth in [place] 00 :00 the Medical morning Branch and 1 tablet in the evening. Take with meals. Do all this for 90 days. tamsulosin 2021-09- No [id number] .4mg Take 1 Univers 0.4 mg 24 0-15 -14 capsule by ity of hr capsule 00:00: 05:59 mouth at [place] 00 :00 bedtime Medical for 90 Branch days. amLODIPine 2021-09- No [id number] 5mg Take 1 Univers 5 mg tablet 009-24 tablet by it y of 00:00: 05:59 mouth at [place] 00 :00 bedtime Medical for 90 Branch days. levETIRAcet 2021-09- No [id number] 250mg Take 1 Univers am 250 mg 09-24 tablet by ity of tablet 00:00: 05:59 mouth in [place] 00 :00 the Medical morning Branch and 1 tablet in the evening. Do all this for 90 days. lisinopriL 2021-09- No [id number] 20mg Take 1 Univers 20 mg 009-24 tablet by ity of tablet 00:00: 05:59 mouth in [place] 00 :00 the Medical morning Branch and 1 tablet in the evening. Do all this for 90 days. FLUoxetine 2021-09- No [id number] 20mg Take 1 Univers 20 mg 009-24 capsule by ity of capsule 00:00: 05:59 mouth in [place] 00 :00 the Medical morning Branch for 90 days. memantine 2021-09- No [id number] 10mg Take 1 U nivers 10 mg 09-24 tablet by ity of tablet 00:00: 05:59 mouth in [place] 00 :00 the Medical morning Branch and 1 tablet in the evening. Do all this for 90 days. pyridostigm 2021-09- No [id number] 60mg Take 1 Univers ine 60 mg 009-24 tablet by ity of tablet 00:00: 05:59 mouth as [place] 00 :00 needed for Medical Other Branch (HYPOTENSI ON) for up to 90 days. simvastatin 2021-09- No [id number] 20mg Take 1 Univers 20 mg 0-15 - tablet by ity of tablet 00:00: 05:59 mouth at [place] 00 :00 bedtime Medical for 90 Branch days. aspirin 81 2021-09- No [id number] 81mg Take 1 Univers mg chewable 009-24 tablet by it y of tablet 00:00: 05:59 mouth in [place] 00 :00 the Medical morning Branch for 90 days. KCL 20 mEq 2021-09- No [id number] 40meq Take 2 Univers tablet 0- tablets by ity of 00:00: 05:59 mouth in [place] 00 :00 the [facility] for 90 days. metFORMIN 2021-09- No [id number] 500mg Take 1 Univers 500 mg 0-14 tablet by ity of tablet 00:00: 05:59 mouth in [place] 00 :00 the [facility] and 1 tablet in the evening. Take with meals. Do all this for 90 days. tamsulosin 2021-09- No [id number] .4mg Take 1 Univers 0.4 mg 24 009-24 capsule by ity of hr capsule 00:00: 05:59 mouth at [facility] 00 :00 bedtime [facility] for 90 Branch days. amLODIPine 2021-09- No [id number] 5mg Take 1 Univers 5 mg tablet 09-24 tablet by it y of 00:00: 05:59 mouth at [place] 00 :00 bedtime [facility] for 90 Branch days. levETIRAcet 2021-09- No [id number] 250mg Take 1 Univers am 250 mg 09-24 tablet by ity of tablet 00:00: 05:59 mouth in [place] 00 :00 [facility] and 1 tablet in the evening. Do all this for 90 days. lisinopriL 2021-09- No [id number] 20mg Take 1 Univers 20 mg 0- tablet by ity of tablet 00:00: 05:59 mouth in [place] 00 :00 the [facility] and 1 tablet in the evening. Do all this for 90 days. FLUoxetine 2021-09- No [id number] 20mg Take 1 Univers 20 mg 0- capsule by ity of capsule 00:00: 05:59 mouth in [place] 00 :00 [facility] for 90 days. memantine 2021-09- No [id number] 10mg Take 1 U nivers 10 mg 0-14 tablet by ity of tablet 00:00: 05:59 mouth in [place] 00 :00 the [facility] and 1 tablet in the evening. Do all this for 90 days. pyridostigm 2021-09- No [id number] 60mg Take 1 Univers ine 60 mg 0-15 -14 tablet by ity of tablet 00:00: 05:59 mouth as [place] 00 :00 needed for Medical Other Branch (HYPOTENSI ON) for up to 90 days. simvastatin 2021-09- No [id number] 20mg Take 1 Univers 20 mg 0-15 -14 tablet by ity of tablet 00:00: 05:59 mouth at [place] 00 :00 bedtime Medical for 90 Branch days. aspirin 81 2021-09- No [id number] 81mg Take 1 Univers mg chewable 0-15 -14 tablet by it y of tablet 00:00: 05:59 mouth in [place] 00 :00 the Medical morning Branch for 90 days. metFORMIN 2021-09- No [id number] 500mg Take 1 Univers 500 mg 0-25 09- tablet by ity of tablet 00:00: 05:59 mouth in [place] 00 :00 the Medical morning Branch and 1 tablet in the evening. Take with meals. Do all this for 90 days. tamsulosin 2021-09- No [id number] .4mg Take 1 Univers 0.4 mg 24 0-25 09- capsule by ity of hr capsule 00:00: 05:59 mouth at [facility] 00 :00 bedtime Medical for 90 Branch days. amLODIPine 2021-09- No [id number] 5mg Take 1 Univers 5 mg tablet 009-24 tablet by it y of 00:00: 05:59 mouth at [place] 00 :00 bedtime Medical for 90 Branch days. levETIRAcet 2021-09- No [id number] 250mg Take 1 Univers am 250 mg 009-24 tablet by ity of tablet 00:00: 05:59 mouth in [place] 00 :00 the Medical morning Branch and 1 tablet in the evening. Do all this for 90 days. lisinopriL 2021-09- No [id number] 20mg Take 1 Univers 20 mg 0-15 -14 tablet by ity of tablet 00:00: 05:59 mouth in [place] 00 :00 the Medical morning Branch and 1 tablet in the evening. Do all this for 90 days. FLUoxetine 2021-09- No [id number] 20mg Take 1 Univers 20 mg 0-15 -14 capsule by ity of capsule 00:00: 05:59 mouth in [place] 00 :00 the Medical morning Branch for 90 days. memantine 2021-09- No [id number] 10mg Take 1 U nivers 10 mg 009-24 tablet by ity of tablet 00:00: 05:59 mouth in [place] 00 :00 the Medical morning Branch and 1 tablet in the evening. Do all this for 90 days. pyridostigm 2021-09- No [id number] 60mg Take 1 Univers ine 60 mg 009-24 tablet by ity of tablet 00:00: 05:59 mouth as [place] 00 :00 needed for Medical Other Branch (HYPOTENSI ON) for up to 90 days. simvastatin 2021-09- No [id number] 20mg Take 1 Univers 20 mg 009-24 tablet by ity of tablet 00:00: 05:59 mouth at [place] 00 :00 bedtime Medical for 90 Branch days. aspirin 81 2021-09- No [id number] 81mg Take 1 Univers mg chewable 09-24 tablet by it y of tablet 00:00: 05:59 mouth in [place] 00 :00 the [facility] morning Branch for 90 days. KCL 20 mEq 2021-09- No [id number] 40meq Take 2 Univers tablet 09-24 tablets by ity of 00:00: 05:59 mouth in [place] 00 :00 the Medical morning Branch for 90 days. metFORMIN 2021-09- No [id number] 500mg Take 1 Univers 500 mg 09-24 tablet by ity of tablet 00:00: 05:59 mouth in [place] 00 :00 the Medical morning Branch and 1 tablet in the evening. Take with meals. Do all this for 90 days. tamsulosin 2021-09- No [id number] .4mg Take 1 Univers 0.4 mg 24 09-24 capsule by ity of hr capsule 00:00: 05:59 mouth at [facility] 00 :00 bedtime Medical for 90 Branch days. amLODIPine 2021-09- No [id number] 5mg Take 1 Univers 5 mg tablet 09-24 tablet by it y of 00:00: 05:59 mouth at [place] 00 :00 bedtime Medical for 90 Branch days. levETIRAcet 2021-09- No [id number] 250mg Take 1 Univers am 250 mg 0-15 -14 tablet by ity of tablet 00:00: 05:59 mouth in [place] 00 :00 the Medical morning Branch and 1 tablet in the evening. Do all this for 90 days. lisinopriL 2021-09- No [id number] 20mg Take 1 Univers 20 mg 0-15 -14 tablet by ity of tablet 00:00: 05:59 mouth in [place] 00 :00 the Medical morning Branch and 1 tablet in the evening. Do all this for 90 days. FLUoxetine 2021-09- No [id number] 20mg Take 1 Univers 20 mg 0-15 -14 capsule by ity of capsule 00:00: 05:59 mouth in [place] 00 :00 the Medical morning Branch for 90 days. memantine 2021-09- No [id number] 10mg Take 1 U nivers 10 mg 0-15 -14 tablet by ity of tablet 00:00: 05:59 mouth in [place] 00 :00 the Medical morning Branch and 1 tablet in the evening. Do all this for 90 days. pyridostigm 2021-09- No [id number] 60mg Take 1 Univers ine 60 mg 0-15 -14 tablet by ity of tablet 00:00: 05:59 mouth as [place] 00 :00 needed for Medical Other Branch (HYPOTENSI ON) for up to 90 days. simvastatin 2021-09- No [id number] 20mg Take 1 Univers 20 mg 0-15 -14 tablet by ity of tablet 00:00: 05:59 mouth at [place] 00 :00 bedtime Medical for 90 Branch days. aspirin 81 2021-09- No [id number] 81mg Take 1 Univers mg chewable 0-15 -14 tablet by it y of tablet 00:00: 05:59 mouth in [place] 00 :00 the Medical morning Branch for 90 days. KCL 20 mEq 2021-09- No [id number] 40meq Take 2 Univers tablet 0-15 -14 tablets by ity of 00:00: 05:59 mouth in [place] 00 :00 the Medical morning Branch for 90 days. metFORMIN 2021-09- No [id number] 500mg Take 1 Univers 500 mg 0-15 -14 tablet by ity of tablet 00:00: 05:59 mouth in [place] 00 :00 the Medical morning Branch and 1 tablet in the evening. Take with meals. Do all this for 90 days. tamsulosin 2021-09- No [id number] .4mg Take 1 Univers 0.4 mg 24 0-15 -14 capsule by ity of hr capsule 00:00: 05:59 mouth [place] 00 :[place] bedtime Medical for 90 Branch days. amLODIPine 2021-09- No [id number] 5mg Take 1 Univers 5 mg tablet 0-14 tablet by it y of 00:00: 05:59 mouth at [place] 00 :00 bedtime Medical for 90 Branch days. levETIRAcet 2021-09- No [id number] 250mg Take 1 Univers am 250 mg 0- tablet by ity of tablet 00:00: 05:59 mouth in [place] 00 :00 the Medical morning Branch and 1 tablet in the evening. Do all this for 90 days. lisinopriL 2021-09- No [id number] 20mg Take 1 Univers 20 mg 0-15 - tablet by ity of tablet 00:00: 05:59 mouth in [place] 00 :00 the Medical morning Branch and 1 tablet in the evening. Do all this for 90 days. FLUoxetine 2021-09- No [id number] 20mg Take 1 Univers 20 mg 0-15 -14 capsule by ity of capsule 00:00: 05:59 mouth in [place] 00 :00 the Medical morning Branch for 90 days. memantine 2021-09- No [id number] 10mg Take 1 U nivers 10 mg 0-15 -14 tablet by ity of tablet 00:00: 05:59 mouth in [place] 00 :00 the Medical morning Branch and 1 tablet in the evening. Do all this for 90 days. pyridostigm 2021-09- No [id number] 60mg Take 1 Univers ine 60 mg 0-15 -14 tablet by ity of tablet 00:00: 05:59 mouth as [place] 00 :00 needed for Medical Other Branch (HYPOTENSI ON) for up to 90 days. simvastatin 2021-09- No [id number] 20mg Take 1 Univers 20 mg 0-15 -14 tablet by ity of tablet 00:00: 05:59 mouth at [place] 00 :00 bedtime Medical for 90 Branch days. aspirin 81 2021-09- No [id number] 81mg Take 1 Univers mg chewable 0-25 09-14 tablet by it y of tablet 00:00: 05:59 mouth in [place] 00 :00 the [facility] morning [place] for 90 days. KCL 20 mEq 2021-09- No [id number] 40meq Take 2 Univers tablet 0-15 -14 tablets by ity of 00:00: 05:59 mouth in [place] 00 :00 the [facility] morning [place] for 90 days. metFORMIN 2021-09- No [id number] 500mg Take 1 Univers 500 mg 0-15 -14 tablet by ity of tablet 00:00: 05:59 mouth in [place] 00 :00 the [facility] morning Branch and 1 tablet in the evening. Take with meals. Do all this for 90 days. tamsulosin 2021-09- No [id number] .4mg Take 1 [facility] 0.4 mg 24 009-24 capsule by ity of hr capsule 00:00: 05:59 mouth at [facility] 00 :00 [facility] Branch days. amLODIPine 2021-09- No [id number] 5mg Take 1 Univers 5 mg tablet 0- tablet by it y of 00:00: 05:59 mouth at [place] 00 :00 [facility] for 90 Branch days. levETIRAcet 2021-09- No [id number] 250mg Take 1 Univers am 250 mg 009-24 tablet by ity of tablet 00:00: 05:59 mouth in [place] 00 :00 the [facility] morning [place] and 1 tablet in the evening. Do all this for 90 days. lisinopriL 2021-09- No [id number] 20mg Take 1 Univers 20 mg 0-15 -14 tablet by ity of tablet 00:00: 05:59 mouth in [place] 00 :00 the [facility] morning Branch and 1 tablet in the evening. Do all this for 90 days. FLUoxetine 2021-09- No [id number] 20mg Take 1 Univers 20 mg 0-15 -14 capsule by ity of capsule 00:00: 05:59 mouth in [place] 00 :00 the [facility] morning [place] for 90 days. memantine 2021-09- No [id number] 10mg Take 1 U nivers 10 mg 0-15 -14 tablet by ity of tablet 00:00: 05:59 mouth in [place] 00 :00 the Medical morning Branch and 1 tablet in the evening. Do all this for 90 days. pyridostigm 2021-09- No [id number] 60mg Take 1 Univers ine 60 mg 0-15 -14 tablet by ity of tablet 00:00: 05:59 mouth as [place] 00 :00 needed for Medical Other Branch (HYPOTENSI ON) for up to 90 days. simvastatin 2021-09- No [id number] 20mg Take 1 Univers 20 mg 0-09-24 tablet by ity of tablet 00:00: 05:59 mouth at [place] 00 :00 bedtime Medical for 90 Branch days. aspirin 81 2021-09- No [id number] 81mg Take 1 Univers mg chewable 009-24 tablet by it y of tablet 00:00: 05:59 mouth in [place] 00 :00 the Medical morning Branch for 90 days. KCL 20 mEq 2021-09- No [id number] 40meq Take 2 Univers tablet 009-24 tablets by ity of 00:00: 05:59 mouth in [place] 00 :00 the Medical morning Branch for 90 days. metFORMIN 2021-09- No [id number] 500mg Take 1 [facility] 500 mg 009-24 tablet by ity of tablet 00:00: 05:59 mouth in [place] 00 :00 the Medical morning Branch and 1 tablet in the evening. Take with meals. Do all this for 90 days. tamsulosin 2021-09- No [id number] .4mg Take 1 Univers 0.4 mg 24 09-24 capsule by ity of hr capsule 00:00: 05:59 mouth at [facility] 00 :00 bedtime Medical for 90 Branch days. amLODIPine 2021-09- No [id number] 5mg Take 1 Univers 5 mg tablet 009-24 tablet by it y of 00:00: 05:59 mouth at [place] 00 :00 bedtime Medical for 90 Branch days. levETIRAcet 2021-09- No [id number] 250mg Take 1 Univers am 250 mg 009-24 tablet by ity of tablet 00:00: 05:59 mouth in [place] 00 :00 the Medical morning Branch and 1 tablet in the evening. Do all this for 90 days. lisinopriL 2021-09- No [id number] 20mg Take 1 Univers 20 mg 0-15 -14 tablet by ity of tablet 00:00: 05:59 mouth in [place] 00 :00 the Medical morning Branch and 1 tablet in the evening. Do all this for 90 days. FLUoxetine 2021-09- No [id number] 20mg Take 1 Univers 20 mg 0-15 -14 capsule by ity of capsule 00:00: 05:59 mouth in [place] 00 :00 the [facility] morning Branch for 90 days. memantine 2021-09- No [id number] 10mg Take 1 U nivers 10 mg 0-15 -14 tablet by ity of tablet 00:00: 05:59 mouth in [place] 00 :00 the [facility] morning Branch and 1 tablet in the evening. Do all this for 90 days. pyridostigm 2021-09- No [id number] 60mg Take 1 Univers ine 60 mg 0-25 09-14 tablet by ity of tablet 00:00: 05:59 mouth as [place] 00 :00 needed for Medical Other Branch (HYPOTENSI ON) for up to 90 days. simvastatin 2021-09- No [id number] 20mg Take 1 Univers 20 mg 0-15 -14 tablet by ity of tablet 00:00: 05:59 mouth at [place] 00 :00 bedtime Medical for 90 Branch days. aspirin 81 2021-09- No [id number] 81mg Take 1 Univers mg chewable 0-15 -14 tablet by it y of tablet 00:00: 05:59 mouth in [place] 00 :00 the [facility] morning [place] for 90 days. KCL 20 mEq 2021-09- No [id number] 40meq Take 2 Univers tablet 0-15 -14 tablets by ity of 00:00: 05:59 mouth in [place] 00 :00 the Medical morning [place] for 90 days. metFORMIN 2021-093- No [id number] 500mg Take 1 Univers 500 mg 0-15 -14 tablet by ity of tablet 00:00: 05:59 mouth in [place] 00 :00 the Medical morning Branch and 1 tablet in the evening. Take with meals. Do all this for 90 days. tamsulosin 2021-09- No [id number] .4mg Take 1 Univers 0.4 mg 24 0-15 -14 capsule by ity of hr capsule 00:00: 05:59 mouth at [place] 00 :00 bedtime Medical for 90 Branch days. amLODIPine 2021-09- No [id number] 5mg Take 1 Univers 5 mg tablet 0-15 -14 tablet by it y of 00:00: 05:59 mouth at [place] 00 :00 bedtime Medical for 90 Branch days. levETIRAcet 2021-09- No [id number] 250mg Take 1 Univers am 250 mg 0-15 -14 tablet by ity of tablet 00:00: 05:59 mouth in [place] 00 :00 the Medical morning Branch and 1 tablet in the evening. Do all this for 90 days. lisinopriL 2021-09- No [id number] 20mg Take 1 Univers 20 mg 0-15 -14 tablet by ity of tablet 00:00: 05:59 mouth in [place] 00 :00 the Medical morning Branch and 1 tablet in the evening. Do all this for 90 days. FLUoxetine 2021-09- No [id number] 20mg Take 1 Univers 20 mg 0-15 -14 capsule by ity of capsule 00:00: 05:59 mouth in [place] 00 :00 the Medical morning Branch for 90 days. memantine 2021-09- No [id number] 10mg Take 1 U nivers 10 mg 0-15 -14 tablet by ity of tablet 00:00: 05:59 mouth in [place] 00 :00 the Medical morning Branch and 1 tablet in the evening. Do all this for 90 days. pyridostigm 2021-09- No [id number] 60mg Take 1 Univers ine 60 mg 0-15 -14 tablet by ity of tablet 00:00: 05:59 mouth as [place] 00 :00 needed for Medical Other Branch (HYPOTENSI ON) for up to 90 days. simvastatin 2021-09- No [id number] 20mg Take 1 [facility] 20 mg 0-15 -14 tablet by ity of tablet 00:00: 05:59 mouth at [place] 00 :00 bedtime Medical for 90 Branch days. aspirin 81 2021-09- No [id number] 81mg Take 1 Univers mg chewable 0-15 -14 tablet by it y of tablet 00:00: 05:59 mouth in [place] 00 :00 the [facility] for 90 days. KCL 20 mEq 2021-09- No [id number] 40meq Take 2 Univers tablet 0- tablets by ity of 00:00: 05:59 mouth in [place] 00 :00 the [facility] for 90 days. metFORMIN 2021-09- No [id number] 500mg Take 1 Univers 500 mg 0- tablet by ity of tablet 00:00: 05:59 mouth in [place] 00 :00 the [facility] and 1 tablet in the evening. Take with meals. Do all this for 90 days. tamsulosin 2021-09- No [id number] .4mg Take 1 Univers 0.4 mg 24 09-24 capsule by ity of hr capsule 00:00: 05:59 mouth at [facility] 00 :00 bedtime [facility] for 90 Branch days. amLODIPine 2021-09- No [id number] 5mg Take 1 Univers 5 mg tablet 09-24 tablet by it y of 00:00: 05:59 mouth at [place] 00 :00 bedtime [facility] for 90 Branch days. levETIRAcet 2021-09- No [id number] 250mg Take 1 Univers am 250 mg 09-24 tablet by ity of tablet 00:00: 05:59 mouth in [place] 00 :00 the [facility] and 1 tablet in the evening. Do all this for 90 days. lisinopriL 2021-09- No [id number] 20mg Take 1 Univers 20 mg 009-24 tablet by ity of tablet 00:00: 05:59 mouth in [place] 00 :00 the [facility] and 1 tablet in the evening. Do all this for 90 days. FLUoxetine 2021-09- No [id number] 20mg Take 1 Univers 20 mg 0- capsule by ity of capsule 00:00: 05:59 mouth in [place] 00 :00 the [facility] for 90 days. memantine 2021-09- No [id number] 10mg Take 1 U nivers 10 mg 0- tablet by ity of tablet 00:00: 05:59 mouth in [place] 00 :00 the [facility] and 1 tablet in the evening. Do all this for 90 days. pyridostigm 2021-09- No [id number] 60mg Take 1 Univers ine 60 mg 0-14 tablet by ity of tablet 00:00: 05:59 mouth as [place] 00 :00 needed for Medical Other Branch (HYPOTENSI ON) for up to 90 days. simvastatin 2021-09- No [id number] 20mg Take 1 [facility] 20 mg 0-15 -14 tablet by ity of tablet 00:00: 05:59 mouth at [place] 00 :00 bedtime Medical for 90 Branch days. aspirin 81 2021-09- No [id number] 81mg Take 1 Univers mg chewable 014 tablet by it y of tablet 00:00: 05:59 mouth in [place] 00 :00 the Medical morning Branch for 90 days. KCL 20 mEq 2021-09- No [id number] 40meq Take 2 Univers tablet 009-24 tablets by ity of 00:00: 05:59 mouth in [place] 00 :00 the Medical morning Branch for 90 days. metFORMIN 2021-09- No [id number] 500mg Take 1 Univers 500 mg 009-24 tablet by ity of tablet 00:00: 05:59 mouth in [place] 00 :00 the Medical morning Branch and 1 tablet in the evening. Take with meals. Do all this for 90 days. tamsulosin 2021-09- No [id number] .4mg Take 1 [facility] 0.4 mg 24 009-24 capsule by ity of hr capsule 00:00: 05:59 mouth [place] 00 :00 bedtime Medical for 90 Branch days. amLODIPine 2021-09- No [id number] 5mg Take 1 Univers 5 mg tablet 009-24 tablet by it y of 00:00: 05:59 mouth at [place] 00 :00 bedtime Medical for 90 Branch days. levETIRAcet 2021-09- No [id number] 250mg Take 1 Univers am 250 mg 009-24 tablet by ity of tablet 00:00: 05:59 mouth in [place] 00 :00 the Medical morning Branch and 1 tablet in the evening. Do all this for 90 days. lisinopriL 2021-09- No [id number] 20mg Take 1 Univers 20 mg 0-15 -14 tablet by ity of tablet 00:00: 05:59 mouth in [place] 00 :00 the Medical morning Branch and 1 tablet in the evening. Do all this for 90 days. FLUoxetine 2021-09- No [id number] 20mg Take 1 Univers 20 mg 0-15 -14 capsule by ity of capsule 00:00: 05:59 mouth in [place] 00 :00 the Medical morning Branch for 90 days. memantine 2021-09- No [id number] 10mg Take 1 U nivers 10 mg 0-15 -14 tablet by ity of tablet 00:00: 05:59 mouth in [place] 00 :00 the Medical morning Branch and 1 tablet in the evening. Do all this for 90 days. pyridostigm 2021-09- No [id number] 60mg Take 1 Univers ine 60 mg 0-15 -14 tablet by ity of tablet 00:00: 05:59 mouth as [place] 00 :00 needed for Medical Other Branch (HYPOTENSI ON) for up to 90 days. simvastatin 2021-09- No [id number] 20mg Take 1 Univers 20 mg 0-15 -14 tablet by ity of tablet 00:00: 05:59 mouth at [place] 00 :00 bedtime Medical for 90 Branch days. aspirin 81 2021-09- No [id number] 81mg Take 1 Univers mg chewable 0-15 -14 tablet by it y of tablet 00:00: 05:59 mouth in [place] 00 :00 the [facility] morning Branch for 90 days. KCL 20 mEq 2021-09- No [id number] 40meq Take 2 Univers tablet 0-15 -14 tablets by ity of 00:00: 05:59 mouth in [place] 00 :00 the Medical morning Branch for 90 days. metFORMIN 2021-09- No [id number] 500mg Take 1 Univers 500 mg 0-15 -14 tablet by ity of tablet 00:00: 05:59 mouth in [place] 00 :00 the Medical morning Branch and 1 tablet in the evening. Take with meals. Do all this for 90 days. tamsulosin 2021-09- No [id number] .4mg Take 1 Univers 0.4 mg 24 0-15 -14 capsule by ity of hr capsule 00:00: 05:59 mouth at [place] 00 :00 bedtime Medical for 90 Branch days. amLODIPine 2021-09- No [id number] 5mg Take 1 Univers 5 mg tablet 0-14 tablet by it y of 00:00: 05:59 mouth at [place] 00 :00 bedtime Medical for 90 Branch days. levETIRAcet 2021-09- No [id number] 250mg Take 1 [facility] am 250 mg 0-25 09-14 tablet by ity of tablet 00:00: 05:59 mouth in [place] 00 :00 the Medical morning Branch and 1 tablet in the evening. Do all this for 90 days. lisinopriL 2021-09- No [id number] 20mg Take 1 Univers 20 mg 015 - tablet by ity of tablet 00:00: 05:59 mouth in [place] 00 :00 the Medical morning Branch and 1 tablet in the evening. Do all this for 90 days. FLUoxetine 2021-09- No [id number] 20mg Take 1 Univers 20 mg 009-24 capsule by ity of capsule 00:00: 05:59 mouth in [place] 00 :00 the [facility] morning [place] for 90 days. memantine 2021-09- No [id number] 10mg Take 1 U nivers 10 mg 009-24 tablet by ity of tablet 00:00: 05:59 mouth in [place] 00 :00 the [facility] morning Branch and 1 tablet in the evening. Do all this for 90 days. pyridostigm 2021-09- No [id number] 60mg Take 1 Univers ine 60 mg 0- tablet by ity of tablet 00:00: 05:59 mouth as [place] 00 :00 needed for Medical Other Branch (HYPOTENSI ON) for up to 90 days. simvastatin 2021-09- No [id number] 20mg Take 1 Univers 20 mg 0- tablet by ity of tablet 00:00: 05:59 mouth at [place] 00 :00 bedtime Medical for 90 Branch days. aspirin 81 2021-09- No [id number] 81mg Take 1 Univers mg chewable 0-15 -14 tablet by it y of tablet 00:00: 05:59 mouth in [place] 00 :00 the Medical morning Branch for 90 days. KCL 20 mEq 2021-09- No [id number] 40meq Take 2 Univers tablet 015 01-14 tablets by ity of 00:00: 05:59 mouth in [place] 00 :00 the Medical morning Branch for 90 days. gabapentin 2021-09- No [id number] 300mg Take 1 Univers 300 mg 0-15 12-15 capsule by ity of capsule 00:00: 05:59 mouth as [place] 00 :00 needed for Medical Pain Branch (scale 4-6) for up to 60 days. gabapentin 2021-09- No [id number] 300mg Take 1 Univers 300 mg 0-15 12-15 capsule by ity of capsule 00:00: 05:59 mouth as [place] 00 :00 needed for Medical Pain Branch (scale 4-6) for up to 60 days. gabapentin 2021-09- No [id number] 300mg Take 1 [facility] 300 mg 0-15 12-15 capsule by ity of capsule 00:00: 05:59 mouth as [place] 00 :00 needed for Medical Pain Branch (scale 4-6) for up to 60 days. gabapentin 2021-09- No [id number] 300mg Take 1 [facility] 300 mg 0-15 12-15 capsule by ity of capsule 00:00: 05:59 mouth as [place] 00 :00 needed for Medical Pain Branch (scale 4-6) for up to 60 days. gabapentin 2021-09- No [id number] 300mg Take 1 [facility] 300 mg 0-15 12-15 capsule by ity of capsule 00:00: 05:59 mouth as [place] 00 :00 needed for Medical Pain Branch (scale 4-6) for up to 60 days. gabapentin 2021-09- No [id number] 300mg Take 1 [facility] 300 mg 0-15 12-15 capsule by ity of capsule 00:00: 05:59 mouth as [place] 00 :00 needed for Medical Pain Branch (scale 4-6) for up to 60 days. gabapentin 2021-09- No [id number] 300mg Take 1 [facility] 300 mg 0-15 12-15 capsule by ity of capsule 00:00: 05:59 mouth as [place] 00 :00 needed for Medical Pain Branch (scale 4-6) for up to 60 days. gabapentin 2021-09- No [id number] 300mg Take 1 [facility] 300 mg 0-15 12-15 capsule by ity of capsule 00:00: 05:59 mouth as [place] 00 :00 needed for Medical Pain Branch (scale 4-6) for up to 60 days. gabapentin 2021-09- No [id number] 300mg Take 1 [facility] 300 mg 0-15 12-15 capsule by ity of capsule 00:00: 05:59 mouth as [place] 00 :00 needed for Medical Pain Branch (scale 4-6) for up to 60 days. gabapentin 2021-09- No [id number] 300mg Take 1 [facility] 300 mg 0-15 12-15 capsule by ity of capsule 00:00: 05:59 mouth as [place] 00 :00 needed for Medical Pain Branch (scale 4-6) for up to 60 days. gabapentin 2021-09- No [id number] 300mg Take 1 [facility] 300 mg 0-15 12-15 capsule by ity of capsule 00:00: 05:59 mouth as [place] 00 :00 needed for Medical Pain Branch (scale 4-6) for up to 60 days. amitriptyli 2021-09- No [id number] 100mg Take 2 Univers ne 50 mg 0-15 10-23 tablets by ity of tablet 00:00: 04:59 mouth at [place] 00 :00 bedtime Medical for 7 Branch days. amitriptyli 2021-09 No [id number] 100mg Take 2 Univers ne 50 mg 0-15 10-23 tablets by ity of tablet 00:00: 04:59 mouth at [place] 00 :00 bedtime Medical for 7 Branch days. amitriptyli 2021-09- No [id number] 100mg Take 2 Univers ne 50 mg [...] as RTU IV 55 :55 on Mon [facility] Piggyback 06/24/22 Branch at 0830, Until Mon06/24/22 at 0830, Administer over 60 Minutes, CV Intraproce dure metFORMIN 2021-09 Yes 500mg 500 mg, Univ ers (GLUCOPHAGE 0-13 Oral, BID ity of ) tablet 22:00: MEALS, [place] 500 mg 00 First dose Medical on [facility] 06/23/22 at 1700, Until Discontinu ed, Routine metFORMIN 2021-09- No 500mg 500 mg, Uni vers (GLUCOPHAGE 0-23 06- Oral, BID it y of ) tablet 22:00: 21:09 MEALS, [place] 500 mg 00 :41 First dose Medical on [facility] 06/23/22 at 1700, Until Discontinu ed, Routine amLODIPine 2021-09- No 5mg 5 mg, Unive rs (NORVASC) 0- 10- Oral, ity of tablet 5 mg 16:52: 17:31 ONCE, 1 [place] 00 :[place] dose, On [facility] 06/23/22 at 1200, Routine captopriL 2021-09- No 12.5mg 12.5 mg, U nivers (CAPOTEN) 0- 10- Oral, ity of tablet 12.5 04:45: 04:56 ONCE, 1 [place] mg 00 :00 dose, On [facility] 06/22/22 at 2345, Routine labetaloL 2021-09- No 5mg 5 mg, Slow U nivers (NORMODYNE) 0- 10- IV Push, ity of injection 5 03:45: 03:12 ONCE, 1 [place] mg 00 :00 dose, On [facility] 06/22/22 at 2245, Routine vitamin 2021-09- [...] mg 00 :01 First dose Medical on [facility] 06/22/22 at 1130, Until Discontinu ed, [...] First dose Medi joyce 40 mg on [facility] 06/22/22 at 0900, Until Discontinu ed, [...] :53 dose, On Medic al 0.9% (NS) [facility] 100 mL IV 06/22/22 piggyback at 0815, Administer over 15 Minutes, 100 mL magnesium 2021-09 No 4g 4 g, IV Univ ers sulfate in 006-22 Piggyback, it y of water 4 12:15: 15:48 at 25 [place] gram/50 mL 00 :01 mL/hr Medical (8 %) IV Administer Branc h Piggyback 4 over 120 g Minutes, ONCE, 1 dose, On Mon06/22/22 at 0715, Routine amLODIPine 2021-09 No 5mg 5 mg, Unive rs (NORVASC) 0-12 10-13 Oral, ity of tablet 5 mg 08:30: 16:53 DAILY, [place] 00 :37 First dose Medical on [facility] 06/22/22 at 0330, Until Discontinu ed, Routine melatonin 2021-09 Yes 3mg 3 mg, Univers (MELATIN) 0-12 Oral, QHS, ity of tablet 3 mg 02:00: First dose [place] 00 on [facility] 06/21/22 Branch at 2100, Until Discontinu ed, Routine melatonin 2021-09 No 3mg 3 mg, Univer s (MELATIN) 0-12 10-15 Oral, QHS, ity of tablet 3 mg 02:00: 21:09 First dose [place] 00 :41 on [facility] 06/21/22 [place] at 2100, Until Discontinu ed, Routine hydrOXYzine 2021-09 No 10mg 10 mg, Uni vers (ATARAX) 0- 10-12 Oral, ity of tablet 10 02:00: 01:08 ONCE, 1 [place] mg 00 :00 dose, On Medical [facility] 06/21/22 at 2100, Routine enoxaparin 2021-09 Yes 40mg 40 mg, Unive rs (LOVENOX) 0-11 Subcutaneo ity of injection 22:00: [place], DAILY, [place] 40 mg 00 First dose Medical on [facility] 06/21/22 at 1700, Until Discontinu ed, Routine enoxaparin 2021-09 No 40mg 40 mg, Univ ers (LOVENOX) 0-11 10-15 Subcutaneo ity of injection 22:00: 21:09 us, DAILY, [place] 40 mg 00 :41 First dose Medical on [facility] 06/21/22 at 1700, Until Discontinu ed, Routine [...] Medical (HumaLOG) + on [facility] 06/21/22 Testing at 1200, Until Discontinu ed, Routine Sliding 2021-09- No Subcutaneo Uni vers Scale 0-11 10-15 us, TID ity of Insulin - 17:00: 21:09 MEALS+HS, [place] Lispro 00 :41 First dose Medical [facility]HumaLOG[facility] at 1200, Until Discontinu ed, Routine sulfur 2021-09- No [id number] 5mL 5 mL, Unive rs hexafluorid 0-11 10-11 Intravenou i ty of e microsphr 17:00: 17:00 s, ONCE, 1 [place] (LUMASON) 00 :00 dose, On Medica l injection 5 [facility] mL 06/21/22 at 1200, Routine
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 member approving Restricted medication : WILTON NICHOLAS enalapril 2021-09 Yes 20mg 20 mg, Univer s (VASOTEC) 0-11 Oral, BID, ity of tablet 20 16:00: First dose [place] mg 00 on [facility] 06/21/22 Branch at 1100, Until Discontinu ed, Routine enalapril 2021-09- No 20mg 20 mg, Unive rs (VASOTEC) 0-11 10-15 Oral, BID, ity of tablet 20 16:00: 21:09 First dose [place] mg 00 :41 on [facility] 06/21/22 Branch at 1100, Until Discontinu ed, Routine dextrose 2021-09 Yes 250mL 250 mL, IV Un teo 10% (D10W) 0-11 Infusion, ity of bolus 15:42: PRN - SEE [place] infusion 37 INSTRUCTIO Medic al 250 mL [...] 34 Starting Medical injection 1 on Mon [facility] 06/21/22 at 1042, Until Discontinu ed, YOKO, Blood Glucose < or = 70 mg/dL and patient is unable to swallow or has mental changes. glucagon 2021-09- No 1mg 1 mg, Univers (GLUCAGEN 0-11 10-15 Intramuscu ity of DIAGNOSTIC 15:42: 21:09 lar, PRN, [place] KIT) 34 :41 Starting Medical injection 1 on [facility] mg 06/21/22 at 1042, Until 06/25/22 at 1609, YOKO, Blood Glucose < or = 70 mg/dL and patient is unable to swallow or has mental changes. acetaminoph 2021-09 Yes 650mg 650 mg, Un teo en 0-11 Oral, ity of (TYLENOL) 15:21: Q6HPRN, [place] tablet 650 10 Starting Medic al mg on [facility] 06/21/22 at 1021, Until Discontinu ed, Routine, Pain (scale 1-3) acetaminoph 2021-09- No 650mg 650 mg, U nivers en 0-11 -15 Oral, ity of (TYLENOL) 15:21: 21:09 Q6HPRN, [place] tablet 650 10 :41 Starting Medic al mg on [facility] 06/21/22 at 1021, Until 06/25/22 at 1609, Routine, Pain (scale 1-3) melatonin 2021-09- No 3mg 3 mg, Univer s (MELATIN) 06-21 Oral, ity of tablet 3 mg 09:15: 08:30 ONCE, 1 [place] 00 :[place] dose, On Medical [facility] 06/21/22 at 0415, Routine aspirin 2021-09- No 325mg 325 mg, Unive rs E.C. 06-21 Oral, ity of (ECOTRIN) 08:30: 08:30 ONCE, 1 [place] tablet 325 00 :00 dose, On Medic al mg [facility] 06/21/22 at 0330, STAT atenoloL 2021-09- No 100mg 100 mg, Univ ers (TENORMIN) 06-21 Oral, ity of tablet 100 03:00: 02:13 ONCE, 1 [place] mg 00 :00 dose, On [facility] 06/20/22 at 2200, Routine cloNIDine 2021-09- No .2mg 0.2 mg, Univ ers (CATAPRES) 006-21 Oral, ity of tablet 0.2 02:15: 02:14 ONCE, 1 [place] mg 00 :00 dose, On [facility] 06/20/22 at 2115, STAT iopamidol 2021-09- No [id number] 150mL 150 mL, Univers (ISOVUE 0-10 10-10 [...] dose Bran ch (NS) 100 mL on [facility] MINI-BAG 06/20/22 at 1430, Until Discontinu ed, [...] Medical Piggyback, Branch ONCE, 1 dose, On [facility] 06/20/22 at 1430, STAT tamsulosin 2021- No [...] No 15U inject 15 Univ ers Glargine 03-29- Units ity of 100 unit/mL 00:00: 00:00 under the [place] (3 mL) 00 :00 skin. Medical injection Branch Insulin 2022- No 15U inject 15 Univ ers Glargine 03-29- Units ity of 100 unit/mL 00:00: 00:00 under the [place] (3 mL) 00 :00 skin. Medical injection Branch Insulin 2022- No 15U inject 15 Univ ers Glargine 03-29- Units ity of 100 unit/mL 00:00: 00:00 under the [place] (3 mL) 00 :00 skin. Medical injection Branch Insulin 2022- No 15U inject 15 Univ ers Glargine 03-29- Units ity of 100 unit/mL 00:00: 00:00 [...] 7-09 by [facility]: daily. [address] Yes 10mg QD Take [address] [facility] mg tablet 7-09 by mouth [facility]: daily. [address] Yes 10mg QD Take [address] [facility] mg tablet 7-09 by mouth [facility] 00:[facility]: daily. [address] Yes 10mg QD Take [address] [facility] mg tablet 7-09 by mouth [facility] 00:[facility]: daily. [address] Yes 10mg QD Take [address] [facility] mg tablet 7-09 by mouth [facility] 00:[facility]: daily. [address] 10 2020-0 Yes 10mg QD Take [address] [facility] mg tablet 7-09 by mouth [facility] 00:[facility]: daily. [address] 10 2020-0 Yes 10mg QD Take [address] [facility] mg tablet 7-09 by mouth [facility] 00:[facility]: daily. [address] 10 2020-0 Yes 10mg QD Take [address] [facility] mg tablet 7-09 by mouth [facility] 00:[facility]: daily. [address] 10 2020-0 Yes 10mg QD Take [address] [facility] mg tablet 7-09 by mouth [facility] 00:[facility]: daily. [address] 10 2020-0 Yes 10mg QD Take [address] [facility] mg tablet 7-09 by mouth [facility] 00:[facility]: daily. [address] 10 2020-0 Yes 10mg QD Take [address] [address] mg tablet 7-09 by mouth [facility] 00:[facility]: daily. [address] 10 2020-0 Yes 10mg QD Take [address] [facility] [address] mg tablet 7-09 by mouth [facility] 00:[facility]: daily. [address] 10 2020-0 Yes 10mg QD Take [address] [facility] mg tablet 7-09 by mouth [facility] 00:[facility]: daily. [address] 10 2020-0 Yes 10mg QD Take [address] mg tablet 7-09 by mouth [facility] 00:[facility]: daily. [address] simvastatin 2020-0 Yes 20mg QD Take [address] [facility] (ZOCOR) 20 5-13 by mouth [facility] tablet 00:00: nightly. [address] tamsulosin 2020-0 Yes .4mg Take 0.[address] [facility] (FLOMAX) 5-13 mg by [facility] 0.4 mg Cap 00:00: mouth Medica l 24 hr 00 Daily Center capsule (1800). simvastatin 2020-0 Yes 20mg QD Take [address] [facility] (ZOCOR) 20 5-13 by mouth [facility] tablet 00:00: nightly. [address] tamsulosin 2020-0 Yes .4mg Take 0.[address] [facility] (FLOMAX) 5-13 mg by [facility] 0.4 mg Cap 00:00: mouth Medica l 24 hr 00 Daily Center capsule (1800). simvastatin 2020-0 Yes 20mg QD Take [address] [facility] (ZOCOR) 20 5-13 by [facility] tablet 00:00: nightly. [address] tamsulosin 2020-0 Yes .4mg Take 0.[address] [facility] (FLOMAX) 5-13 mg by [facility]4 mg Cap 00:00: mouth Medica l 24 hr 00 Daily Center capsule (1800). simvastatin 2020-0 Yes 20mg QD Take [address] [facility] (ZOCOR) 20 5-13 [facility] tablet 00:00: nightly. [address] tamsulosin 2020-0 Yes .4mg Take 0.[address] [facility] (FLOMAX) 5-13 mg [facility] 0.4 mg Cap 00:00: mouth Medica l 24 hr 00 Daily Center capsule (1800). simvastatin 2020-0 Yes 20mg QD Take [address] [facility] (ZOCOR) 20 5-13 by [facility] tablet 00:00: nightly. [address] tamsulosin 2020-0 Yes .4mg Take 0.[address] [facility] (FLOMAX) 5-13 mg [facility] 0.4 mg Cap 00:00: mouth Medica l 24 hr 00 Daily [facility] capsule (1800). simvastatin 2020-0 Yes 20mg QD Take [address] [facility] (ZOCOR) 20 5-13 by mouth [facility] tablet 00:00: nightly. [address] tamsulosin 2020-0 Yes .4mg Take 0.[address] [facility] (FLOMAX) 5-13 mg [facility] 0.4 mg Cap 00:00: mouth Medica l 24 hr 00 Daily [facility] capsule (1800). simvastatin 2020-0 Yes 20mg QD Take [address] [facility] (ZOCOR) 20 5-13 by mouth [facility] tablet 00:00: nightly. [address] tamsulosin 2020-0 Yes .4mg Take 0.[address] [facility] (FLOMAX) 5-13 mg by [facility] 0.4 mg Cap 00:00: mouth Medica l 24 hr 00 Daily [facility] capsule (1800). simvastatin 2020-0 Yes 20mg QD Take [address] [facility] (ZOCOR) 20 5-13 by mouth [facility] tablet 00:00: nightly. [address] tamsulosin 2020-0 Yes .4mg Take 0.[address] [facility] (FLOMAX) 5-13 mg [facility] 0.4 mg Cap 00:00: mouth Medica l 24 hr 00 Daily [facility] capsule (1800). simvastatin 2020-0 Yes 20mg QD Take [address] [facility] (ZOCOR) 20 5-13 by mouth [facility] tablet 00:00: nightly. [address] tamsulosin 2020-0 Yes .4mg Take 0.[address] [facility] (FLOMAX) 5-13 mg by [facility] 0.4 mg Cap 00:00: mouth Medica l 24 hr 00 Daily [facility] capsule (1800). simvastatin 2020-0 Yes 20mg QD Take [address] [facility] (ZOCOR) 20 5-13 by mouth [facility] tablet 00:00: nightly. [address] tamsulosin 2020-0 Yes .4mg Take 0.[address] [facility] (FLOMAX) 5-13 mg by [facility] 0.4 mg Cap 00:00: mouth Medica l 24 hr 00 Daily Center capsule (1800). simvastatin 2020-0 Yes 20mg QD Take [address] [facility] (ZOCOR) 20 5-13 by mouth [facility] tablet 00:00: nightly. [address] tamsulosin 2020-0 Yes .4mg Take 0.[address] [facility] (FLOMAX) 5-13 mg by [facility] 0.4 mg Cap 00:00: mouth Medica l 24 hr 00 Daily [facility] capsule (1800). simvastatin 2020-0 Yes 20mg QD Take [address] [facility] (ZOCOR) 20 5-13 by mouth [facility] tablet 00:00: nightly. [address] tamsulosin 2020-0 Yes .4mg Take 0.[address] [facility] (FLOMAX) 5-13 mg by [facility] 0.4 mg Cap 00:00: mouth Medica l 24 hr 00 Daily [facility] capsule (1800). simvastatin 2020-0 Yes 20mg QD Take [address] [facility] (ZOCOR) 20 5-13 by mouth [facility] tablet 00:00: nightly. [address] tamsulosin 2020-0 Yes .4mg Take 0.[address] [facility] (FLOMAX) 5-13 mg by [facility] 0.4 mg Cap 00:00: mouth Medica l 24 hr 00 Daily [facility] capsule (1800). simvastatin 2020-0 Yes 20mg QD Take [address] [facility] (ZOCOR) 20 5-13 by mouth [facility] tablet 00:00: nightly. [address] tamsulosin 2020-0 Yes .4mg Take 0.[address] [facility] (FLOMAX) 5-13 mg by [facility] 0.4 mg Cap 00:00: mouth Medica l 24 hr 00 Daily Center capsule (1800). omeprazole 2020-0 Yes 20mg QD Take [address] [facility] (PRILOSEC) 5-04 by mouth [facility] 20 MG 00:00: daily. Medical capsule [address] [place] [address] omeprazole 2020-0 Yes 20mg QD Take [address] [facility] (PRILOSEC) 5-04 by mouth [facility] 20 MG 00:00: daily. Medical capsule [address] [place] [address] omeprazole 2020-0 Yes 20mg QD Take [address] [facility] (PRILOSEC) 5-04 by mouth [facility] 20 MG 00:00: daily. Medical capsule [address] [place] [address] omeprazole 2020-0 Yes 20mg QD Take [address] (PRILOSEC) 5-04 by mouth [facility] 20 MG 00:00: daily. Medical capsule [address] [place] [address] omeprazole 2020-0 Yes 20mg QD Take [address] (PRILOSEC) 5-04 by mouth [facility] 20 MG 00:00: daily. Medical capsule [address] [place] [address] omeprazole 2020-0 Yes 20mg QD Take [address] (PRILOSEC) 5-04 by mouth [facility] 20 MG 00:00: daily. Medical capsule [address] [place] [address] omeprazole 2020-0 Yes 20mg QD Take [address] (PRILOSEC) 5-04 by mouth [facility] 20 MG 00:00: daily. Medical [address] omeprazole 2020-0 Yes 20mg QD Take [address] (PRILOSEC) 5-04 by mouth [facility] 20 MG 00:00: daily. Medical capsule [address] [place] [address] omeprazole 2020-0 Yes 20mg QD Take [address] (PRILOSEC) 5-04 by mouth [facility] 20 MG 00:00: daily. Medical capsule [address] [place] [address] omeprazole 2020-0 Yes 20mg QD Take [address] (PRILOSEC) 5-04 by mouth [facility] 20 MG 00:00: daily. Medical capsule [address] [place] [address] omeprazole 2020-0 Yes 20mg QD Take [address] (PRILOSEC) 5-04 by mouth [facility] 20 MG 00:00: daily. Medical capsule [address] [place] [address] omeprazole 2020-0 Yes 20mg QD Take [address] (PRILOSEC) 5-04 by mouth [facility] 20 MG 00:00: daily. Medical capsule [address] [place] [address] omeprazole 2020-0 Yes 20mg QD Take [address] (PRILOSEC) 5-04 by mouth [facility] 20 MG 00:00: daily. Medical capsule [address] [place] [address] omeprazole 2020-0 Yes 20mg QD Take [address] (PRILOSEC) 5-04 by mouth [facility] 20 MG 00:00: daily. [facility] capsule [address] [place] [address] fLUoxetine Yes 20mg QD Take [address] (PROZAC) 20 8-23 by mouth [facility] MG capsule 00:00: daily. [facility] al [address] [place] [address] melatonin 3 Yes 3mg QD Take [address] mg Tab 8-23 by mouth [facility] tablet 00:00: nightly. [address] 3 Yes 3mg QD Take [address] mg Tab 8-23 by mouth [facility] tablet 00:00: nightly. [address] fLUoxetine Yes 20mg QD Take [address] (PROZAC) 20 8-23 by mouth [facility] MG capsule 00:00: daily. [facility] al [address] [place] [address] 3 Yes 3mg QD Take [address] mg Tab 8-23 by mouth [facility] tablet 00:00: nightly. [address] fLUoxetine Yes 20mg QD Take [address] (PROZAC) 20 8-23 by mouth [facility] MG capsule 00:00: daily. [facility] al [address] [place] [address] melatonin 3 2018- Yes 3mg QD Take [address] mg Tab 8-23 by mouth [facility] tablet 00:00: nightly. [address] fLUoxetine 0 Yes 20mg QD Take [address] (PROZAC) 20 8-23 by mouth [facility] MG capsule 00:00: daily. [facility] al [address] [place] [address] 3 2018-0 Yes 3mg QD Take [address] mg Tab 8-23 by mouth [facility] tablet 00:00: nightly. [address] fLUoxetine 2019-0 Yes 20mg QD Take [address] (PROZAC) 20 8-23 by mouth [facility] MG capsule 00:00: daily. Medic al [address] [place] [address] 3 2018-0 Yes 3mg QD Take [address] mg Tab 8-23 by mouth [facility] tablet 00:00: nightly. [address] fLUoxetine 2019-0 Yes 20mg QD Take [address] (PROZAC) 20 8-23 by mouth [facility] MG capsule 00:00: daily. [address] 3 2018-0 Yes 3mg QD Take [address] mg Tab 8-23 by mouth [facility] tablet 00:00: nightly. [address] fLUoxetine 2019-0 Yes 20mg QD Take [address] (PROZAC) 20 8-23 by mouth [facility] MG capsule 00:00: daily. [address] 3 Yes 3mg QD Take [address] mg Tab 8-23 by mouth [facility] tablet 00:00: nightly. [address] fLUoxetine 2018-0 Yes 20mg QD Take [address] (PROZAC) 20 8-23 by mouth [facility] MG capsule 00:00: daily. [address] 3 Yes 3mg QD Take [address] mg Tab 8-23 by mouth [facility] tablet 00:00: nightly. [address] fLUoxetine 2018-0 Yes 20mg QD Take [address] (PROZAC) 20 8-23 by mouth [facility] MG capsule 00:00: daily. [address] 3 0 Yes 3mg QD Take [address] mg Tab 8-23 by mouth [facility] tablet 00:00: nightly. [address] fLUoxetine 2019-0 Yes 20mg QD Take [address] (PROZAC) 20 8-23 by mouth [facility] MG capsule 00:00: daily. [address] 3 2018-0 Yes 3mg QD Take [address] mg Tab 8-23 by mouth [facility] tablet 00:00: nightly. [address] fLUoxetine 2019-0 Yes 20mg QD Take [address] (PROZAC) 20 8-23 by mouth [facility] MG capsule 00:00: daily. [address] 3 2018-0 Yes 3mg QD Take [address] mg Tab 8-23 by mouth [facility] tablet 00:00: nightly. [address] fLUoxetine 2019-0 Yes 20mg QD Take [address] (PROZAC) 20 8-23 by mouth [facility] MG capsule 00:00: daily. [facility] [address] [place] melatonin 3 Yes 3mg QD Take [address] mg Tab 8-23 by mouth [facility] tablet 00:00: nightly. [address] fLUoxetine Yes 20mg QD Take [address] (PROZAC) 20 8-23 by mouth [facility] MG capsule 00:00: daily. Medic al 00 [place] melatonin 3 Yes 3mg QD Take [address] mg Tab 8-23 by mouth [facility] tablet 00:00: nightly. [address] fLUoxetine Yes 20mg QD Take [address] (PROZAC) 20 8-23 by mouth [facility] MG capsule 00:00: daily. Medic al 00 [place] bisacodyl Yes 10 mg = 1 Mem oria 10 mg 6-19 supp, [facility], l rectal 21:04: Daily, PRN [place] nn suppository 00 Constipati on, 0 Refill(s) Docusate Yes 100 mg = 1 [facility]ria Sodium 100 6-19 cap, PO, l MG Oral 21:04: Q12H, 0 [place] Capsule 00 Refill(s) atorvastati Yes 10 mg = 1 M emoria n 10 mg 6-19 tab, PO, l oral tablet 21:04: Bedtime, 0 [place] 00 Refill(s) sennosides, Yes 8.6 mg = 1 Mem[facility] PRISON 8.6 MG 6-19 tab, PO, l Oral Tablet 21:04: Q12H, 0 Her antonio 00 Refill(s) levofloxaci Yes 500 mg = 1 Memoria n 500 mg 6-19 tab, PO, l oral tablet 21:04: [id number], 0 [place] 00 Refill(s) Humalog No Notes: [facility] 6-18 (Same as: l 16:30: Humalog ) [place] 00 Roll in palms of hands gently; Do not shake `vigorousl y. "Single Patient Use Only " WASTE: F/P - Black; E - Municipal Trash Bin Stable for 28 days at room temperatur e. Expires in days from ____Date Insulin 0 No Notes: [facility] Glargine 6-18 Same as: [...] s with feeding tube less than 14 Croatian (Dobhoff, J-tube etc) and pediatric and patients. [...] 6-16 (Same as: l 21:30: Humalog ) [place] 00 Roll in palms of hands gently; [...] n 6-16 tab, l 11:49: Route: PO, [place] 00 Drug form: TAB, [id number], Dosing Weight 81.9, kg, Priority: NOW, Start [...] F/P l MG/ML 11:47: - Sink; E [place] Injection 00 - [facility] Trash Bin Potassium No Notes: Memori a Chloride 6-16 (Same as: l 07:49: KCL) Infuse over 2 hours. Potassium No Notes: [facility] a Chloride 6-16 (Same as: l 07:47: K-Dur 20) "Do Not Crush" For patients unable to swallow tablet, dissolve in one half glass of water. Allow about 2 minutes for the tablets to disintegra te. Stir before giving to prepare slurry and administer . Please exclude Patient s with feeding tube less than 14 Croatian (Dobhoff, J-tube etc) and pediatric and patients. With food and full glass of water potassium No Notes: Memori a phosphate-s -16 (Same as: l odium 07:28: Phos-NaK) [place] phosphate 00 Each 1.5 250 mg-280 gm [...] 07:28: Mag-Ox [place] 00 400) Magnesium oxide [id number]=[id number] g elemental magnesium Dose=____m g magnesium oxide (___mg elemental magnesium) Bisacodyl No Notes: Memori a 6-15 (Same As: l 14:04: Dulcolax, [place] 00 Bisco-Lax) Levofloxaci No Notes: Do M [...] No 10 mg, Memori a 6-13 Route: [facility], l 14:02: Drug form: SUPP, ONCE, Dosing [...] 6-13 Route: PO, l 11:00: Q6H, [place] Dosing Weight 81.9, kg, Start date: 02/21/18 [...] phosphate 6-13 (Same as: l 05:41: K [place] Phosphate. ) 1 mMol phoshate has 1.47 mEq potassium Infuse over 4 hours Potassium No Notes: Memori a Chloride 6-13 (Same as: l 05:41: Potassium [place] Chloride) Calcium No Notes: [facility] Carbonate 6-13 (Same As: l 500 MG 05:41: Tums) [place] Chewable 00 Calcium Tablet Carbonate 500 mg = 200 mg elemental calcium Dose = mg calcium carbonate ( mg elemental calcium) Magnesium No Notes: [facility] a Sulfate 6-13 WASTE: F/P l 05:41: - Sink; E [place] 00 - Municipal Trash Bin potassium No Notes: Memori a phosphate-s 02-21 (Same as: l odium 05:41: Phos-NaK) [place] phosphate 00 Each 1.5 250 mg-280 gm pkt has mg-160 mg 250mg oral powder phosphorou for s. Mix reconstitut w/2.5oz ion water and stir. Calcium No Notes: [facility] Gluconate 02-21 WASTE: F/P l 05:41: - Sink; E [place] - Municipal Trash Bin Magnesium No Notes: Memori a Oxide 02-21 (Same as: l 05:41: Mag-Ox [place] 00 400) Magnesium oxide 219tt=280a g elemental magnesium Dose=____m g magnesium oxide [...] moria 02-21 infuse l 05:00: over 2.5 [place] 00 hours For adult patients only: Round to nearest 250 mg per Medical Staff approval MEDICATION WASTE Product Size: 1000 mg Product Wasted: ___ mg cefepime No Notes: [facility]oria 02-21 (Same As: l 05:00: Maxipime) [place] 00 MEDICATION WASTE Product Size: 1000 mg Product Wasted: ___ mg Lisinopril No Notes: Memor ia 02-21 (Same as: l 02:00: Prinivil, [place] 00 Zestril) atorvastati No Notes: Dirk reji n 02-21 (Same As: l 02:00: Lipitor) [place] 00 heparin No Notes: Memoria sodium, 6-12 porcine l porcine 21:00: heparin [place] 2500 UNT/ML 00 Injectable Solution Tramadol No [...] " WASTE: F/P - Black; E - [employer] Trash Bin Stable for 28 days at room temperatur e. Expires in days from ____Date Glucagon No 1 mg, Memoria 612 Route: IM, l 14:44: Drug form: [place] 00 PDR/INJ, PRN, Dosing Weight 81.9, kg, [...] ia 6-12 (Same as: l 14:00: Prozac, [place] 00 Sarafem) Zocor No Notes: Memoria 6-12 [...] Norvasc) Saline No Notes: Memoria Flush 0.9% 02-19 (Same as: l 14:00: BD Posiflush) Docusate No Notes: [facility]oria 6-11 (Same as: l 14:00: Colace) (Do Not Crush) sennosides, No Notes: Dirk reji PRISON 6-11 (Same as: l 14:00: Senokot) Levetiracet No Notes: Dirk reji am 6-11 Same as l 14:00: Keppra Mix with 100 mL NS, LR or D5W MEDICATION WASTE Product Size: 500 mg Product Wasted: ___ mg Flomax 2017- No Notes: [facility]oria 6-11 (Same As: l 14:00: Flomax) "Do Not Crush" Protonix 2017- No Notes: [facility]oria 6-11 Tablet l 14:00: [...] Dirk reji 02-19 Route: l 13:29: IVP, 00 Q20Min, Dosing Weight 81.9, kg, PRN Elevated BP, Start date: 02/19/18 8:29:00 CDT, Duration: 2 doses or times, Stop date: Limited # of times Labetalol 2018-0 No 10 mg, Memori a 6-11 Route: l 13:29: IVP, [place] 00 Q5Min, Dosing Weight 81.9, kg, PRN Elevated BP, Start date: 02/19/18 8:29:00 CDT, Duration: 5 doses or times, Stop date: Limited # of times Oxycodone 2018-0 No 5 mg, Memoria 6-11 Route: PO, l 13:29: Drug form: [place] 00 TAB, Q4H, Dosing Weight 81.9, kg, PRN Pain Score 4-6, Start date: 02/19/18 8:29:00 CDT, Duration: 30 day, Stop date: 03/21/18 8:28:00 CDT Metoprolol 2018-0 No 1 mg, Memori a 6 Route: l 13:29: IVP, [place] 00 Q5Min, Dosing Weight 81.9, kg, PRN [...] 50 Memoria 6-11 microgram, l 13:29: Route: [place] 00 IVP, Q5Min, Dosing Weight 81.9, kg, PRN Pain Score 7-10, Priority: Routine, Start date: 02/19/18 8:29:00 CDT, Duration: 2 doses or times, Stop date: Limited # of times Hydromorpho 2018-0 No 0.5 mg, Mem oria ne 6-11 Route: l 13:29: IVP, [place] 00 Q5Min, Dosing Weight 81.9, kg, PRN Pain Score 7-10, Start date: 02/19/18 8:29:00 CDT, Duration: 4 doses or times, Stop date: Limited # of times Ondansetron 0 No 4 mg, Memor ia 6 Route: l 13:29: IVP, ONCE, Dosing Weight 81.9, kg, PRN Nausea & Vomiting, Start date: 02/19/18 8:29:00 CDT Naloxone No 0.4 mg, Memori a 6 Route: l 13:29: IVP, Q2MIN, Dosing Weight [...] Sodium No Route: IV, Memor ia Chloride 11 Total l 0.9% IV 13:06: Volume: [place] (ANES) 500 00 500, Start mL date: 02/19/18 8:06:00 CDT, Stop date: 02/19/18 9:06:00 CDT propofol No Route: IV, Mem oria (ANES) 10 [...] interfere w/enteral feedings Take With Food Potassium 2017- No Notes: Memori a Chloride 6-11 (Same as: l 11:00: KCL) [place] Infuse over 2 hours. Nicardipine 2017- No Notes: Dirk reji 6-11 Same as: l 10:56: Cardene [place] Concentrat ion: (0.1 mg/ 1 ml) Labetalol 2017-0 No 10 mg, 2 Dirk reji 6-11 mL, Route: l 10:44: IVP, Drug [place] form: INJ, Q1H, Dosing Weight 82.8, kg, PRN Hypertensi on, Start date: 02/19/18 5:44:00 CDT, Duration: 30 day, Stop date: 03/21/18 5:43:00 CDT Hydralazine 2017-0 No Notes: Dirk reji 6-11 (Same as: l 10:44: Apresoline [place] ) Push over 5 minutes potassium 2017-0 [...] Calcium 2018-0 No 1 gm, Memoria Gluconate 6 Route: l 10:44: IVPB, PRN, [place] 00 Dosing Weight 82.8, kg, PRN Abnormal [...] 2018-0 No 800 mg, Memor ia Oxide 6 Route: PO, l 10:44: PRN, [place] 00 Dosing Weight 82.8, kg, PRN Abnormal Lab Result, FOR ICU USE ONLY, Start date: 02/19/18 5:44:00 CDT, Duration: 30 day, Stop date: 03/21/18 5:43:00 CDT potassium 2018-0 No 2 pkt, Memori a phosphate-s 611 Route: PO, l odium 10:44: Dosing [place] phosphate 00 Weight 250 mg-280 82.8, kg, [...] phosphate 6-11 (Same as: l 09:36: K [place] 00 Phosphate. ) 1 mMol phoshate has 1.47 mEq potassium Infuse over 4 hours Potassium No Notes: Memori a Chloride 6-11 (Same as: l 09:36: Potassium [place] 00 Chloride) potassium No Notes: Memori a phosphate-s 6-11 (Same as: l odium 09:36: Phos-NaK) [place] phosphate 00 Each 1.5 250 mg-280 gm pkt has mg-160 mg 250mg oral powder phosphorou for s. Mix reconstitut w/2.5oz ion water and stir. Magnesium No Notes: Memori a Sulfate 6-11 WASTE: F/P l 09:36: - Sink; E [place] 00 - Municipal Trash Bin Magnesium No Notes: Memori a Oxide 6-11 (Same as: l 09:36: Mag-Ox [place] 00 400) Magnesium oxide 744pk=072c g elemental magnesium Dose=____m g magnesium oxide [...] [place] Posiflush) Ondansetron No Notes: Dirk reji -11 (Same as: l 09:27: Zofran) [place] MEDICATION [...] Acetaminoph No Notes: Do M emoria en - not exceed l 09:27: 4 gm/day. [place] (Same as: Tylenol) Acetaminoph No 1 tab, [...] Rate: 50 l 0.9% IV 09:27: ml/hr, [place] 1,000 mL 00 Infuse over: 20 hr, Route: IV, Dosing Weight 82.8 kg, Total Volume: 1,000, Start date: 02/19/18 4:27:00 CDT, Duration: 30 day, Stop date: 03/21/18 4:26:00 CDT, 1.96, m2 Magnesium 2018- No 2 gm, Memoria Sulfate 6-11 Route: l 09:17: IVPB, Drug [place] 00 form: INJ, ONCE, Dosing Weight 82.8, [...] MG ORAL TAB 6-11 ity of 04:52: [address] COMPLEX 1 Yes None Univer s ORAL TAB 6-11 Entered ity of 04:52: [address] M-VIT ORAL Yes None Univers 6-11 Entered ity of 04:52: [address] PEPCID 20 Yes prn Univers MG ORAL TAB 6-11 ity of 04:52: [address] COMPLEX 1 Yes None Univer s ORAL TAB 6-11 Entered ity of 04:52: [address] M-VIT ORAL Yes None Univers 6-11 Entered ity of 04:52: [address] PEPCID 20 Yes prn Univers MG ORAL TAB 6-11 ity of 04:52: [address] COMPLEX 1 Yes None Univer s ORAL TAB 6-11 Entered ity of 04:52: [address] M-VIT ORAL Yes None Univers 6-11 Entered ity of 04:52: [address] PEPCID 20 Yes prn Univers MG ORAL TAB 6-11 ity of 04:52: [address] 1 Yes None Univer s ORAL TAB 6-11 Entered ity of 04:52: [address] M-VIT ORAL Yes None Univers 6-11 Entered ity of 04:52: [address] PEPCID 20 Yes prn Univers MG ORAL TAB 6-10 ity of 23:52: [address] 1 Yes None Univer s ORAL TAB 6-10 Entered ity of 23:52: [address] M-VIT ORAL Yes None Univers 6-10 Entered ity of 23:52: [address] PEPCID 20 Yes prn Univers MG ORAL TAB 6-10 ity of 23:52: [address] 1 Yes None Univer s ORAL TAB 6-10 Entered ity of 23:52: [address] M-VIT ORAL Yes None Univers 6-10 Entered ity of 23:52: [address] Levetiracet Yes 500 mg = 1 [...] tab, PO, l tablet 15:03: Q12H, 0 [place] 00 Refill(s) Insulin Yes 25 unit, Memori a Glargine 6-05 SUB-Q, l 100 UNT/ML 15:03: Bedtime, 0 H ermann Injectable 00 Refill(s) Solution [Lantus] amLODIPine Yes 10 mg = 1 Me moria 10 mg oral 6-05 tab, PO, l tablet 15:03: Daily, 0 [place] 00 Refill(s) Potassium No Notes: Memori a Chloride 6-05 (Same as: l 14:56: K-Dur 20) [place] 00 "Do Not Crush" For patients unable to swallow tablet, dissolve in one half glass of water. Allow about 2 minutes for the tablets to disintegra te. Stir before giving to prepare slurry and administer . Please exclude Patient s with feeding tube less than 14 Croatian (Dobhoff, J-tube etc) and pediatric and patients. [...] s with feeding tube less than 14 Croatian (Dobhoff, J-tube etc) and pediatric and patients. [...] s with feeding tube less than 14 Croatian (Dobhoff, J-tube etc) and pediatric and patients. With food and full glass of water Clonidine No Notes: Memori a 6-03 (Same As: l 21:00: Catapres) [place] 00 Sodium Yes 3 gm = 3 [...] 18:08: Q12H, 0 [place] 00 Refill(s) Insulin No 60 units) Dirk reji regular 02-10 WASTE: F/P l 23:44: - Black; E [place] 00 - Municipal Trash Bin Stable for 28 days at room temperatur e Expires in days from ____Date Glucagon No 1 mg, Memoria 02-10 Route: IM, l 23:44: Drug form: [place] PDR/INJ, PRN, Dosing Weight 82.8, kg, PRN [...] Sodium No 3 gm, 3 Memoria Chloride 02-10 tab, l 1000 MG 12:30: Route: [place], Herm roxanne Oral Tablet 00 Drug form: TAB, TID-Before Meals, Dosing Weight 82.8, kg, Start date: 02/10/18 7:30:00 CDT, Duration: 30 day, Stop date: 03/11/18 16:30:00 CDT Potassium 2017- No Notes: Memori a Chloride 02-09 (Same [...] sodium, 5-31 porcine l porcine 14:00: heparin [place] 2500 UNT/ML 00 Injectable Solution Lisinopril No Notes: Memor ia 5-31 (Same as: l 14:00: Prinivil, [place] 00 Zestril) Bystolic No Notes: Memoria 5-31 (same as: l 14:00: Bystolic) [place] Nicardipine No Notes: Dirk reji 5-31 Same [...] Memoria 5-30 Give with l 22:53: food. [place] 00 (Same As: Coreg) Lisinopril No Notes: Memor ia 5-30 (Same as: l 13:59: Prinivil, [place] 00 Zestril) Insulin No Notes: Memoria Glargine 5-30 Same as: l 100 UNT/ML 13:58: Lantus) Do H ermann Injectable 00 not hold Solution insulin [Lantus] without contacting prescriber WASTE: F/P - Black; E - Municipal Trash Bin Insulin No 60 units) Dirk reji regular 5-30 WASTE: F/P l 13:57: - Black; E [place] - Municipal Trash Bin Stable for 28 days at room temperatur e Expires in days from ____Date Dextrose No 25 gm, 50 Dirk reji 50% Syringe 5-30 mL, Route: l 13:57: IVP, Drug [place] 00 Form: INJ, Dosing Weight 82.8, kg, [...] Memoria 5-30 (Same as: l 02:00: Zocor) [place] 00 Melatonin 3 No Notes: Dirk reji [...] 5-29 tab, PO, l tablet 03:54: Daily [place] 00 Fluoxetine Yes 20 mg = 1 [...] 5-29 tab, PO, l Enteric 03:54: Daily [place] Coated 00 Tablet [Protonix] clopidogrel No 75 mg = 1 M emoria 75 MG Oral 5-29 tab, PO, l Tablet 03:54: Daily [place] [Plavix] 00 Metformin Yes 500 mg = 1 Me moria hydrochlori 5-29 tab, PO, l de 500 MG 03:54: BID-Meals Her antonio Oral Tablet 00 Simvastatin Yes 20 mg = 1 M emoria 20 MG Oral 5-29 tab, PO, l Tablet 03:54: Bedtime [place] [Zocor] 00 nebivolol No 10 mg = 1 Mem oria 10 MG Oral 5-29 tab, PO, l Tablet 03:54: Daily [place] [Bystolic] 00 Tamsulosin Yes 0.4 mg = 1 M emoria hydrochlori 5-29 cap, PO, l de 0.4 MG 03:54: Daily [place] Oral 00 Capsule [Flomax] Omeprazole Yes 20 [...] 02:00: Colace) sennosides, No Notes: Dirk reji PRISON 5-29 (Same as: l 02:00: Senokot) Tylenol [...] 01:30: Apresoline ) Push over 5 minutes Magnesium No Notes: Memori a Sulfate 02-06 WASTE: F/P l 01:25: - Sink; E - Municipal Trash Bin Potassium No Notes: Memori a Chloride 5-29 (Same as: l 01:25: KCL) Infuse no faster than 10 mEq/hr if given peripheral ly. potassium No Notes: Memori a phosphate-s -29 (Same as: l odium 01:25: Phos-NaK) phosphate [...] phosphate 5-29 10 mL, l 01:25: Route: [place] 00 IVPB, PRN, Dosing Weight 80, kg, PRN Abnormal Lab Result, Start date: 02/05/18 20:25:00 CDT, Duration: 30 day, Stop date: 03/07/18 20:24:00 CDT, FOR ICU USE ONLY Calcium No Notes: Memoria Carbonate 5-29 (Same As: l 500 MG 01:25: Tums) [place] Chewable 00 Calcium Tablet Carbonate 500 mg = 200 mg elemental calcium Dose = mg calcium carbonate ( mg elemental calcium) Magnesium No Notes: Memori a Oxide 5-29 (Same as: l 01:25: Mag-Ox 400) Magnesium oxide 956gs=024d g elemental magnesium Dose=____m g magnesium oxide (___mg elemental magnesium) Calcium No Notes: [facility] Gluconate 02-06 WASTE: F/P l 01:25: - Sink; E [place] 00 - [facility] Trash Bin Sodium No 1,000 mL, [facility] a Chloride 02-06 1,000 l 0.9% 01:21: ml/hr, [place] (Bolus) IV 00 Infuse Over: 1 hr, Route: IV, 1,000, Drug form: INJ, ONCE, Priority: STAT, Dosing Weight 80 kg, Start date: 02/05/18 20:21:00 CDT, Stop date: 02/05/18 20:21:00 CDT Sodium No 1,000 mL, Memori a Chloride 02-06 Rate: 50 l 0.9% IV 01:21: ml/hr, [place] 1,000 mL 00 Infuse over: 20 hr, Route: IV, Dosing Weight 82.8 kg, Total Volume: 1,000, Start date: 02/05/18 20:21:00 CDT, Stop date: 03/07/18 20:20:00 CDT Lorazepam No Notes: Memori a 02-06 (Same as: l 00:29: Ativan) Ativan No Notes: Memoria 02-05 (Same as: l 23:56: Ativan) Ativan No 1 mg, Memoria 02-05 Route: l 23:48: IVP, Drug form: INJ, ONCE, Dosing Weight 80, kg, PRN Anxiety, Start date: 02/05/18 18:48:00 CDT Dextrose No 6.25 gm, Memor ia 50% Syringe 02-05 12.5 mL, l 23:05: Route: [place] 00 IVP, Drug Form: INJ, Dosing Weight [...] 0.9% 02-05 (Same as: l 23:05: BD Austyn 00 Posiflush) Sodium No 10,000 mL, Memor ia Chloride 02-05 Rate: 50 l 0.9% IV 23:05: ml/hr, [place] [address] mL 00 Infuse over: 200 hr, Route: IV, Dosing Weight 80 kg, Total Volume: 10,000, Start date: 02/05/18 18:05:00 CDT, Duration: 30 day, Stop date: 03/07/18 18:04:00 CDT Acetaminoph No Notes: Do M emoria en 325 MG / 02-05 not exceed l Hydrocodone 23:05: 4gm/day of [place] Bitartrate 00 acetaminop 10 MG Oral hen. (Same Tablet as: [place] 325/10) Acetaminoph No Notes: Dirk reji en 325 MG / 02-05 (Same as: l Hydrocodone 23:05: [place] Elyse nn Bitartrate 00 325/5) Do 5 MG Oral not exceed Tablet 4gm/day of acetaminop hen. Morphine No Notes: Memoria 02-05 (Same l 23:05: as:MORPhin [place] 00 e Sulfate) Bisacodyl No Notes: Memori a - (Same As: l 23:05: Dulcolax, [place] 00 Bisco-Lax) Keppra No Notes: Memoria - Same as l 22:43: Keppra Mix [place] 00 with 100 mL NS, LR or [...] Daily Medica l MG tablet 00 (1800). [place] lisinopriL 2014-09 Yes 40mg Take [address] (PRINIVIL,Z 2-21 by mouth Luke s ESTRIL) 40 00:00: Daily Medica l MG tablet 00 (1800). [place] lisinopriL 2014-09 Yes 40mg Take [address] (PRINIVIL,Z 2-21 by mouth Luke s ESTRIL) 40 00:00: Daily Medica l MG tablet 00 (1800). [place] lisinopriL 2014-09 Yes 40mg Take [address] (PRINIVIL,Z 2-21 by mouth Luke s ESTRIL) 40 00:00: Daily Medica l MG tablet 00 (1800). [place] lisinopriL 2014-09 Yes 40mg Take [address] (PRINIVIL,Z 2-21 by mouth [facility] s ESTRIL) 40 00:00: Daily Medica l MG tablet 00 (1800). [place] lisinopriL 2014-09 Yes 40mg Take [address] (PRINIVIL,Z 2-21 by mouth Luke s ESTRIL) 40 00:00: Daily Medica l MG tablet 00 (1799). [place] lisinopriL 2014-09 Yes 40mg Take [address] (PRINIVIL,Z 2-21 by mouth Luke s ESTRIL) 40 00:00: Daily Medica l MG tablet 00 (1799). [place] lisinopriL 2014-09 Yes 40mg Take [address] (PRINIVIL,Z 2-21 by mouth Luke s ESTRIL) 40 00:00: Daily Medica l MG tablet 00 (1800). [place] lisinopriL 2014-09 Yes 40mg Take [address] (PRINIVIL,Z 2-21 by mouth Luke s ESTRIL) 40 00:00: Daily Medica l MG tablet 00 (1800). [place] lisinopriL 2014-09 Yes 40mg Take [address] (PRINIVIL,Z 2-21 by mouth Luke s ESTRIL) 40 00:00: Daily Medica l MG tablet 00 (1800). [place] lisinopriL 2014-09 Yes 40mg Take [address] (PRINIVIL,Z 2-21 by mouth Luke s ESTRIL) 40 00:00: Daily Medica l MG tablet 00 (1800). [place] lisinopriL 2014-09 Yes 40mg Take [address] (PRINIVIL,Z 2-21 by mouth [facility] s ESTRIL) 40 00:00: Daily Medica l MG tablet 00 (1800). [place] lisinopriL 2014-09 Yes 40mg Take [address] (PRINIVIL,Z 2-21 by mouth Luke s ESTRIL) 40 00:00: Daily Medica l MG tablet 00 (1800). [place] lisinopriL 2014-09 Yes 40mg Take [address] (PRINIVIL,Z 2-21 by mouth Luke s ESTRIL) 40 00:00: Daily Medica l MG tablet 00 (1800). [place] PROTONIX 40 Yes [id number] 1 tab PO Univers MG ORAL 4-01 daily ity of TBEC 00:00: [place] 00 [facility] PROTONIX 40 Yes [id number] 1 tab PO Univers MG ORAL 4-01 daily ity of TBEC 00:00: [place] 00 [facility] PROTONIX 40 Yes [id number] 1 tab PO Univers MG ORAL 4-01 daily ity of TBEC 00:00: [place] 00 [facility] PROTONIX 40 Yes [id number] 1 tab PO Univers MG ORAL 4-01 daily ity of TBEC 00:00: [place] 00 [facility] PROTONIX 40 Yes [id number] 1 tab PO Univers MG ORAL 4-01 daily ity of TBEC 00:00: [place] 00 [facility] PROTONIX 40 Yes [id number] 1 tab PO Univers MG ORAL 4-01 daily ity of TBEC 00:00: [place] 00 [facility] PROTONIX 40 2021- No [id number] 1 tab PO Univers MG ORAL 4-01 10-15 daily ity of TBEC 00:00: 00:00 [place] 00 :00 [facility] PROTONIX 40 2021- No [id number] 1 tab PO Univers MG ORAL 4-01 10-15 daily ity of TBEC 00:00: 00:00 [place] 00 :00 [facility] ENALAPRIL 0 Yes [id number] 1 tab po Univers MALEATE 20 1-15 BID ity of MG ORAL TAB 00:00: [place] 00 [facility] ENALAPRIL 2009-0 Yes [id number] 1 tab po Univers MALEATE 20 1-15 BID ity of MG ORAL TAB 00:00: [place] 00 [facility] ENALAPRIL 2009-0 Yes [id number] 1 tab po Univers MALEATE 20 1-15 BID ity of MG ORAL TAB 00:00: [place] 00 [facility] ENALAPRIL 2009-0 Yes [id number] 1 tab po Univers MALEATE 20 1-15 BID ity of MG ORAL TAB 00:00: [place] 00 [facility] ENALAPRIL 2008-0 Yes [id number] 1 tab po Univers MALEATE 20 1-15 BID ity of MG ORAL TAB 00:00: [place] 00 [facility] [place] ENALAPRIL 2008-0 Yes [id number] 1 tab po Univers MALEATE 20 1-15 BID ity of MG ORAL TAB 00:00: [place] 00 [facility] [place] ENALAPRIL 2008-0 2022- No [id number] 1 tab po Univers MALEATE 20 1-15 10-15 BID ity of MG ORAL TAB 00:00: 00:00 [place] 00 :00 [facility] ENALAPRIL 2008-0 2022- No [id number] 1 tab po Univers MALEATE 20 1-15 10-15 BID ity of MG ORAL TAB 00:00: 00:00 [place] 00 :00 [facility] HYDROCHLORO 2008- Yes [id number] take 1 po Univers THIAZIDE 25 0-30 daily ity of MG ORAL TAB 00:00: [place] 00 [facility] HYDROCHLORO 2008- Yes [id number] take 1 po Univers THIAZIDE 25 0-30 daily ity of MG ORAL TAB 00:00: [place] 00 [facility] HYDROCHLORO 2007- Yes [id number] take 1 po Univers THIAZIDE 25 0-30 daily ity of MG ORAL TAB 00:00: [place] 00 [facility] HYDROCHLORO 2007- Yes [id number] take 1 po Univers THIAZIDE 25 0-30 daily ity of MG ORAL TAB 00:00: [place] 00 [facility] HYDROCHLORO 2007-09 Yes [id number] take 1 po Univers THIAZIDE 25 0-30 daily ity of MG ORAL TAB 00:00: [place] 00 [facility] HYDROCHLORO 2007-09 Yes [id number] take 1 po Univers THIAZIDE 25 0-30 daily ity of MG ORAL TAB 00:00: Medical Branch HYDROCHLORO 2007-09- No [id number] take 1 po Univers THIAZIDE 25 0-30 10-15 daily ity of MG ORAL TAB 00:00: 00:00 00 :00 [facility] HYDROCHLORO 2007-09- No [id number] take 1 po Univers THIAZIDE 25 0-30 [...] [place] 00 :00 [facility] GLIPIZIDE 5 2021- No tske 2 tab Univers MG ORAL TAB 9-09 10-15 qam and 1 it y of 00:00: 00:00 tab qpm [place] 00 :00 [facility] ATENOLOL Yes [id number] one tab po Univers 100 MG ORAL 8-27 daily ity of TAB 00:00: [facility] NORCO Yes 1 tab po Univers 7.5-325 MG 8-27 TID ity of ORAL TAB 00:00: Medical [facility] AMITRIPTYLI Yes 2 tabs QHS Univers NE 50 MG 8-27 ity of ORAL TAB 00:00: [place] [facility] METFORMIN Yes [id number] 1 tab PO Univers 850 MG ORAL 8-27 TID ity of TAB 00:00: [place] [facility] CLONIDINE Yes [id number] take 1 po Univers 0.2 MG ORAL 8-27 qid for 1 ity of TAB 00:00: week, then [place] 00 tid for 1 Medical week, then Branch bid and prn thereafter PRAVASTATIN Yes [id number] take 1 po Univers 40 MG ORAL 8-27 qhs ity of TAB 00:00: [place] [facility] ATENOLOL Yes [id number] one tab po Univers 100 MG ORAL 8-27 daily ity of TAB 00:00: [place] [facility] NORCO Yes 1 tab po Univers 7.5-325 MG 8-27 TID ity of ORAL TAB 00:00: [place] [facility] AMITRIPTYLI Yes 2 tabs QHS Univers NE 50 MG 8-27 ity of ORAL TAB 00:00: [place] [facility] METFORMIN Yes [id number] 1 tab PO Univers 850 MG ORAL 8-27 TID ity of TAB 00:00: [place] [facility] CLONIDINE Yes [id number] take 1 po Univers 0.2 MG ORAL 8-27 qid for 1 ity of TAB 00:00: week, then [place] 00 tid for 1 Medical week, then Branch bid and prn thereafter PRAVASTATIN Yes [id number] take 1 po Univers 40 MG ORAL 8-27 qhs ity of TAB 00:00: [place] [facility] ATENOLOL Yes [id number] one tab po Univers 100 MG ORAL 8-27 daily ity of TAB 00:00: [place] [facility] NORCO Yes 1 tab po Univers 7.5-325 MG 8-27 TID ity of ORAL TAB 00:00: [place] [facility] AMITRIPTYLI Yes 2 tabs QHS Univers NE 50 MG 8-27 ity of ORAL TAB 00:00: [place] [facility] METFORMIN Yes [id number] 1 tab PO Univers 850 MG ORAL 8-27 TID ity of TAB 00:00: [place] 00 [facility] CLONIDINE Yes [id number] take 1 po Univers 0.2 MG ORAL 8-27 qid for 1 ity of TAB 00:00: week, then [place] 00 tid for 1 Medical week, then Branch bid and prn thereafter PRAVASTATIN Yes [id number] take 1 po Univers 40 MG ORAL 8-27 qhs ity of TAB 00:00: [place] [facility] ATENOLOL Yes [id number] one tab po Univers 100 MG ORAL 8-27 daily ity of TAB 00:00: [place] [facility] NORCO Yes 1 tab po Univers 7.5-325 MG 8-27 TID ity of ORAL TAB 00:00: [place] [facility] AMITRIPTYLI Yes 2 tabs QHS Univers NE 50 MG 8-27 ity of ORAL TAB 00:00: [place] [facility] METFORMIN Yes [id number] 1 tab PO Univers 850 MG ORAL 8-27 TID ity of TAB 00:00: [place] [facility] CLONIDINE Yes [id number] take 1 po Univers 0.2 MG ORAL 8-27 qid for 1 ity of TAB 00:00: week, then [place] 00 tid for 1 Medical week, then Branch bid and prn thereafter PRAVASTATIN Yes [id number] take 1 po Univers 40 MG ORAL 8-27 qhs ity of TAB 00:00: [place] [facility] ATENOLOL Yes [id number] one tab po Univers 100 MG ORAL 8-27 daily ity of TAB 00:00: [place] [facility] NORCO Yes 1 tab po Univers 7.5-325 MG 8-27 TID ity of ORAL TAB 00:00: [place] [facility] AMITRIPTYLI Yes 2 tabs QHS Univers NE 50 MG 8-27 ity of ORAL TAB 00:00: [place] [facility] METFORMIN 2007- Yes [id number] 1 tab PO Univers 850 MG ORAL 8-27 TID ity of TAB 00:00: [place] [facility] CLONIDINE Yes [id number] take 1 po Univers 0.2 MG ORAL 8-27 qid for 1 ity of TAB 00:00: week, then [place] 00 tid for 1 Medical week, then Branch bid and prn thereafter PRAVASTATIN Yes [id number] take 1 po Univers 40 MG ORAL 8-27 qhs ity of TAB 00:00: [place] 00 [facility] ATENOLOL Yes [id number] one tab po Univers 100 MG ORAL 8-27 daily ity of TAB 00:00: [place] 00 [facility] NORCO Yes 1 tab po Univers 7.5-325 MG 8-27 TID ity of ORAL TAB 00:00: [place] 00 [facility] AMITRIPTYLI Yes 2 tabs QHS Univers NE 50 MG 8-27 ity of ORAL TAB 00:00: [place] 00 [facility] METFORMIN Yes [id number] 1 tab PO Univers 850 MG ORAL 8-27 TID ity of TAB 00:00: [place] 00 [facility] CLONIDINE Yes [id number] take 1 po Univers 0.2 MG ORAL 8-27 qid for 1 ity of TAB 00:00: week, then [place] 00 tid for 1 Medical week, then Branch bid and prn thereafter PRAVASTATIN Yes [id number] take 1 po Univers 40 MG ORAL 8-27 qhs ity of TAB 00:00: [place] 00 [facility] ATENOLOL 2- No [id number] one tab po Univers 100 MG ORAL 8-27 10-15 daily ity of TAB 00:00: 00:00 [place] 00 :00 [facility] NORCO 202- No 1 tab po Univers 7.5-325 MG 8-27 10-15 TID ity of ORAL TAB 00:00: 00:00 [place] 00 :00 [facility] AMITRIPTYLI 2007-2021- No 2 tabs QHS Univers NE 50 MG 8-27 10-15 ity of ORAL TAB 00:00: 00:00 [place] 00 :00 [facility] METFORMIN 2007- 202- No [id number] 1 tab PO Univers 850 MG ORAL 8-27 10-15 TID ity of TAB 00:00: 00:00 [place] 00 :00 [facility] CLONIDINE 2007- 2022- No [id number] take 1 po Univers 0.2 MG ORAL 8-27 10-15 qid for 1 it y of TAB 00:00: 00:00 week, then [place] 00 :00 tid for 1 Medical week, then Branch bid and prn thereafter PRAVASTATIN 2- No [id number] take 1 po Univers 40 MG ORAL 8-27 10-15 qhs ity of TAB 00:00: 00:00 [place] 00 :00 [facility] ATENOLOL 2021- No [id number] one tab po Univers 100 MG ORAL 8-27 10-15 daily ity of TAB 00:00: 00:00 [place] 00 :00 [facility] NORCO 2- No 1 tab po Univers 7.5-325 MG 8-27 10-15 TID ity of ORAL TAB 00:00: 00:00 [place] 00 :00 [facility] AMITRIPTYLI 2021- No 2 tabs QHS Univers NE 50 MG 8-27 10-15 ity of ORAL TAB 00:00: 00:00 [place] 00 :00 [facility] METFORMIN 2021- No [id number] 1 tab PO Univers 850 MG ORAL 8-27 10-15 TID ity of TAB 00:00: 00:00 [place] 00 :00 [facility] CLONIDINE 2021- No [id number] take 1 po Univers 0.2 MG ORAL 8-27 10-15 qid for 1 it y of TAB 00:00: 00:00 week, then [place] 00 :00 tid for 1 Medical week, then Branch bid and prn thereafter PRAVASTATIN 2021- No [id number] take 1 po Univers 40 MG ORAL 8-27 10-15 qhs ity of TAB 00:00: 00:00 [place] 00 :00 [facility] CLONIDINE 2007- Yes [id number] 1 tab tid Univers 0.3 MG ORAL 4-30 and prn ity o f TAB 00:00: [place] 00 [facility] CLONIDINE 2007-0 Yes [id number] 1 tab tid Univers 0.3 MG ORAL 4-30 and prn ity o f TAB 00:00: [place] 00 [facility] CLONIDINE 2007-0 Yes [id number] 1 tab tid Univers 0.3 MG ORAL 4-30 and prn ity o f TAB 00:00: [place] 00 [facility] CLONIDINE 2007- Yes [id number] 1 tab tid Univers 0.3 MG ORAL 4-30 and prn ity o f TAB 00:00: [place] 00 [facility] CLONIDINE 2007- Yes [id number] 1 tab tid Univers 0.3 MG ORAL 4-30 and prn ity o f TAB 00:00: [place] 00 [facility] CLONIDINE 2007- Yes [id number] 1 tab tid Univers 0.3 MG ORAL 4-30 and prn ity o f TAB 00:00: [place] [facility] CLONIDINE 2007-2- No [id number] 1 tab tid Univers 0.3 MG ORAL 4-30 10-15 and prn ity of TAB 00:00: 00:00 [place] 00 :00 [facility] CLONIDINE 2007-2021- No [id number] 1 tab tid Univers 0.3 MG ORAL 4-30 10-15 and prn ity of TAB 00:00: 00:00 [place] 00 :00 [facility] ASPIRIN 325 2006-09 Yes [id number] 1 tab U nivers MG ORAL TAB 0-04 daily ity of 00:00: [place] 00 [facility] ASPIRIN 325 2006- Yes [id number] 1 tab U nivers MG ORAL TAB 0-04 daily ity of 00:00: [place] 00 [facility] ASPIRIN 325 2006- Yes [id number] 1 tab U nivers MG ORAL TAB 0-04 daily ity of 00:00: [place] [facility] ASPIRIN 325 2006- Yes [id number] 1 tab U nivers MG ORAL TAB 0-04 daily ity of 00:00: [place] 00 [facility] ASPIRIN 325 2006- Yes [id number] 1 tab U nivers MG ORAL TAB 0-04 daily ity of 00:00: [place] 00 [facility] ASPIRIN 325 2006- Yes [id number] 1 tab U nivers MG ORAL TAB 0-04 daily ity of 00:00: [place] 00 [facility] ASPIRIN 325 2006-2021- No [id number] 1 tab Univers MG ORAL TAB 0-04 10-15 daily ity of 00:00: 00:00 [place] 00 :00 [facility] ASPIRIN 325 2006-2- No [id number] 1 tab Univers MG ORAL TAB 0-04 10-15 daily ity of 00:00: 00:00 [place] 00 :00 Medical Branch Immunizations Ordered Filled Immunization Date Status Comments [facility] e Immunization Name Name Influenza Virus 2007-06-20 Completed Universit y of Vaccine 00:00:00 [facility] Influenza Virus 2007-06-20 Completed Universit y of Vaccine 00:00:00 [facility] Influenza Virus 2007-06-20 Completed Universit y of Vaccine 00:00:00 [facility] Influenza Virus 2007-06-20 Completed Universit y of Vaccine 00:00:00 [facility] Influenza Virus 2007-06-20 Completed Universit y of Vaccine 00:00:00 [facility] Influenza Virus 2007-06-20 Completed Universit y of Vaccine 00:00:00 [facility] Influenza Virus 2007-06-20 Completed Universit y of Vaccine 00:00:00 [facility] Influenza Virus 2007-06-20 Completed Universit y of Vaccine 00:00:00 [facility] Influenza Virus 2007-06-20 Completed Universit y of Vaccine 00:00:00 [facility] Influenza Virus 2007-06-20 Completed Universit y of Vaccine 00:00:00 [facility] Influenza Virus 2007-06-20 Completed Universit y of Vaccine 00:00:00 [facility] Influenza Virus 2007-06-20 Completed Universit y of Vaccine 00:00:00 [facility] Influenza Virus 2007-06-20 Completed Universit y of Vaccine 00:00:00 [facility] Influenza Virus 2007-06-20 Completed Universit y of Vaccine 00:00:00 [facility] Influenza Virus 2007-06-20 Completed Universit y of Vaccine 00:00:00 [facility] Influenza Virus 2007-06-20 Completed Universit y of Vaccine 00:00:00 [facility] Influenza Virus 2007-06-20 Completed Universit y of Vaccine 00:00:00 [facility] Influenza Virus 2007-06-20 Completed Universit y of Vaccine 00:00:00 [facility] Influenza Virus 2007-06-20 Completed Universit y of Vaccine 00:00:00 [facility] Influenza Virus 2007-06-20 Completed Universit y of Vaccine 00:00:00 [facility] Influenza Virus 2007-06-20 Completed Universit y of Vaccine 00:00:00 [facility] Influenza Virus 2007-06-20 Completed Universit y of Vaccine 00:00:00 [facility] Influenza Virus 2007-06-20 Completed Universit y of Vaccine 00:00:00 [facility] Influenza Virus 2007-06-20 Completed Universit y of Vaccine 00:00:00 [facility] Influenza Virus 2007-06-20 Completed Universit y of Vaccine 00:00:00 [facility] Influenza Virus 2007-06-20 Completed Universit y of Vaccine 00:00:00 [facility] Influenza Virus 2006-07-26 Completed Universit y of Vaccine 00:00:00 [facility] Influenza Virus 2006-07-26 Completed Universit y of Vaccine 00:00:00 [facility] Influenza Virus 2006-07-26 Completed Universit y of Vaccine 00:00:00 [facility] Influenza Virus 2006-07-26 Completed Universit y of Vaccine 00:00:00 [facility] Influenza Virus 2006-07-26 Completed Universit y of Vaccine 00:00:00 [facility] Influenza Virus 2006-07-26 Completed Universit y of Vaccine 00:00:00 [facility] Influenza Virus 2006-07-26 Completed Universit y of Vaccine 00:00:00 [facility] Influenza Virus 2006-07-26 Completed Universit y of Vaccine 00:00:00 [facility] Influenza Virus 2006-07-26 Completed Universit y of Vaccine 00:00:00 [facility] Influenza Virus 2006-07-26 Completed Universit y of Vaccine 00:00:00 [facility] Influenza Virus 2006-07-26 Completed Universit y of Vaccine 00:00:00 [facility] Influenza Virus 2006-07-26 Completed Universit y of Vaccine 00:00:00 [facility] Influenza Virus 2006-07-26 Completed Universit y of Vaccine 00:00:00 [facility] Influenza Virus 2006-07-26 Completed Universit y of Vaccine 00:00:00 [facility] Influenza Virus 2006-07-26 Completed Universit y of Vaccine 00:00:00 [facility] Influenza Virus 2006-07-26 Completed Universit y of Vaccine 00:00:00 [facility] Influenza Virus 2006-07-26 Completed Universit y of Vaccine 00:00:00 [facility] Influenza Virus 2006-07-26 Completed Universit y of Vaccine 00:00:00 [facility] Influenza Virus 2006-07-26 Completed Universit y of Vaccine 00:00:00 [facility] Influenza Virus 2006-07-26 Completed Universit y of Vaccine 00:00:00 [facility] Influenza Virus 2006-07-26 Completed Universit y of Vaccine 00:00:00 [facility] Influenza Virus 2006-07-26 Completed Universit y of Vaccine 00:00:00 [facility] Influenza Virus 2006-07-26 Completed Universit y of Vaccine 00:00:00 [facility] Influenza Virus 2006-07-26 Completed Universit y of Vaccine 00:00:00 [facility] Influenza Virus 2006-07-26 Completed Universit y of Vaccine 00:00:00 [place] [facility] Influenza Virus 2006-07-26 Completed Universit y of Vaccine 00:00:00 [facility] Vital Signs Vital Name Observation Time Observation Value Comments Source WEIGHT 2020-03-24 76.658 kg 00:00:00 Systolic blood 2022-11-01 129 mm[Hg] University of pressure 17:28:00 [facility] Diastolic blood 2022-11-01 80 mm[Hg] University o f pressure 17:28:00 [facility] Heart rate 2022-11-01 77 /min University of 17:28:00 [facility] Body temperature 2022-11-01 36.67 Sindhu University of 17:28:00 [facility] Respiratory rate 2022-11-01 20 /min University of 17:28:00 [facility] Oxygen saturation 2022-11-01 94 /min University of in Arterial blood 17:28:00 [place] [facility] by Pulse oximetry Branch Body weight 2022-10-31 77.1 kg University of 14:00:00 [facility] BMI 2022-10-31 29.18 kg/m2 University of 14:00:00 [facility] Systolic blood 2022-10-08 139 mm[Hg] University of pressure 15:29:00 [facility] Diastolic blood 2022-10-08 85 mm[Hg] University o f pressure 15:29:00 [facility] Heart rate 2022-10-08 72 /min University of 15:29:00 [facility] Body temperature 2022-10-08 35.56 Sindhu University of 15:29:00 [facility] Respiratory rate 2022-10-08 22 /min University of 15:29:00 [facility] Oxygen saturation 2022-10-08 96 /min University of in Arterial blood 15:29:00 [place] [facility]i joy[facility] by Pulse oximetry Branch Body height 2022-10-06 162.6 cm University of 22:03:00 [facility] Body weight 2022-10-06 78.926 kg University of 22:03:00 [facility] BMI 2022-10-06 29.87 kg/m2 University of 22:03:00 [facility] Body weight 2022-09-30 70.308 kg University of 17:27:00 [facility] BMI 2022-09-30 29.87 kg/m2 University of 17:27:00 [facility] Systolic blood 2022-08-03 137 mm[Hg] University of pressure 19:29:00 [facility] Diastolic blood 2022-08-03 68 mm[Hg] University o f pressure 19:29:00 [facility] Heart rate 2022-08-03 75 /min University of 19:29:00 [facility] Body temperature 2022-08-03 36.11 Sindhu University of 19:29:00 [facility] Respiratory rate 2022-08-03 16 /min University of 19:29:00 [facility] Body height 2022-08-03 162.6 cm University of 19:29:00 [facility] Body weight 2022-08-03 70.308 kg University of 19:29:00 [facility] BMI 2022-08-03 26.61 kg/m2 University of 19:29:00 [facility] Systolic blood 2022-06-25 150 mm[Hg] University of pressure 16:28: [facility] Diastolic blood 2022-06-25 92 mm[Hg] University o f pressure 16:28:00 [facility] Heart rate 2022-06-25 102 /min University 16:28:00 [facility] Body temperature 2022-06-25 36.5 Sindhu University of 16:28:00 [facility] Respiratory rate 2022-06-25 20 /min University of 16:28:00 [facility] Oxygen saturation 2022-06-25 91 /min [facility] Arterial blood 16:28:00 [facility] by Pulse oximetry [place] Body weight 2022-06-21 71.215 kg University of 15::00 [facility] BMI 2022-06-21 26.13 kg/m2 University of 15:26:00 [facility] Body height 2022-06-20 165.1 cm University of 18:31:00 [facility] Systolic blood 2022-06-24 184 mm[Hg] University of pressure 12:28:00 beena/yury [facility] [place] bedside Diastolic blood 2022-06-24 105 mm[Hg] dr Hernandez o f pressure 12:28:00 beena/yury [place] [facility] [place] bedside Heart rate 2022-06-24 79 /min University of 12:28:00 [facility] Body temperature 2022-06-24 36.5 Sindhu University of 12:28:00 [facility] Respiratory rate 2022-06-24 20 /min [facility] 12:28:00 [facility] Oxygen saturation 2022-06-24 95 /min [facility] in Arterial blood 12:28:00 [facility] by Pulse oximetry Branch Body weight 2022-06-21 71.215 kg [facility] 15:26:00 [facility] BMI 2022-06-21 26.13 kg/m2 [facility] 15:26:00 [facility] Body height 2022-06-20 165.1 cm [facility] 18:31:00 [facility] Systolic blood 2021-05-11 156 mm[Hg] University of pressure 01:25:00 [facility] Diastolic blood 2021-05-11 77 mm[Hg] [place] o f pressure 01:25:00 [facility] Heart rate 2021-05-11 65 /min [facility] 01:25:00 [facility] Body temperature 2021-05-11 36.94 Sindhu [facility] 01:25:00 [facility] Respiratory rate 2021-05-11 18 /min [facility] 01:25:00 [facility] Oxygen saturation 2021-05-11 96 /min [facility] in Arterial blood 01:25:00 [facility] by Pulse oximetry [place] Body weight 2021-05-10 68.04 kg [facility] 12:50:00 [facility] WEIGHT 2020-03-24 76.658 kg 00:00:00 Systolic (mm Hg) 2018-02-27 [facility] Ishan rmann 18:06:00 Diastolic (mm Hg) 2018-02-27 [facility] Nikia ermann 18:06:00 Heart Rate 2018-02-27 [facility] 18:06:00 Temperature Oral 2018-02-27 99.4 F [facility] Ishan rmann (F) 18:06:00 Respitory Rate 2018-02-27 [facility] roxanne 18:06:00 Systolic (mm Hg) 2018-02-27 [facility] Ishan rmann 12:34:00 Diastolic (mm Hg) 2018-02-27 [facility] 12:34:00 Respitory Rate 2018-02-27 [facility] roxanne 12:34:00 Temperature Oral 2018-02-27 97.8 F Elma Olmstead rmann (F) 12:34:00 Heart Rate 2018-02-27 [facility] [...] 2022-11-11 Doctor Unassigned, Universit y of 06:01:00 [place] [facility] EXTERNAL PROVIDER RECORDS 2022-11-10 Doctor Unassigned, Uni versity of 06:01:00 [place] [facility] COVID-19 (ID NOW RAPID 2022-11-01 Gilbert Winstonit y of TESTING) 19:31:00 [facility] POCT GLUCOSE (AUTOMATED) 2022-11-01 Jarvis Milligan Univers ity of 17:45:00 [facility] POCT GLUCOSE (AUTOMATED) 2022-11-01 Jarvis Milligan Univers ity of 13:54:00 [facility] POCT GLUCOSE (AUTOMATED) 2022-11-01 Jarvis Milligan Univers ity of 01:54:00 [facility] POCT GLUCOSE (AUTOMATED) 2022-10-31 Jarvis Milligan Univers ity of 22:16:00 [facility] POCT GLUCOSE (AUTOMATED) 2022-10-31 Jarvis Milligan Univers ity of 17:38:00 [facility] POCT GLUCOSE (AUTOMATED) 2022-10-31 Jarvis Milligan Univers ity of 14:35:00 [facility] POCT GLUCOSE (AUTOMATED) 2022-10-31 Jarvis Milligan Univers ity of 03:26:00 [facility] POCT GLUCOSE (AUTOMATED) 2022-10-30 Jarvis Milligan Univers ity of 17:29:00 [facility] POCT GLUCOSE (AUTOMATED) 2022-10-30 Jarvis Milligan Univers ity of 13:45:00 [facility] CBC WITHOUT DIFF 2022-10-[facility] 10:52[facility]00 [facility] POCT GLUCOSE (AUTOMATED) 2022-10-30 Jarvis Milligan Univers ity of 01:54:00 [facility] POCT GLUCOSE (AUTOMATED) 2022-10-29 Jarvis Milligan Univers ity of 22:49:00 [facility] POCT GLUCOSE (AUTOMATED) 2022-10-29 Jarvis Milligan Univers ity of 17:47:00 [facility] POCT GLUCOSE (AUTOMATED) 2022-10-29 Chel Jarvis Univers ity of 13:45:00 [facility] POCT GLUCOSE (AUTOMATED) 2022-10-29 Chel Jarvis Univers ity of 02:03:00 [facility] Branch POCT GLUCOSE (AUTOMATED) 2022-10-28 Chel Jarvis Univers ity of 23:28:00 [facility] POCT GLUCOSE (AUTOMATED) 2022-10-28 Chel Jarvis Univers ity of 18:24:00 [facility] Branch POCT GLUCOSE (AUTOMATED) 2022-10-28 Chel Jarvis Univers ity of 14:36:00 [facility] BASIC METABOLIC PANEL (NA, K, 2022-10-28 [facility] of CL, CO2, GLUCOSE, BUN, 10:14:00 Malachi [facility] ical CREATININE, CA) Branch CBC WITH DIFF 2022-10-28 [facility] of 10:14:00 [facility] POCT GLUCOSE (AUTOMATED) 2022-10-28 Chel Jarvis Univers ity of 02:04:00 [facility] POCT GLUCOSE (AUTOMATED) 2022-10-27 Chel Jarvis Univers ity of 22:35:00 [facility] POCT GLUCOSE (AUTOMATED) 2022-10-27 Chel Jarvis Univers ity of 17:33:00 [facility] POCT GLUCOSE (AUTOMATED) 2022-10-27 Chel Jarvis Univers ity of 14:41:00 [facility] POCT GLUCOSE (AUTOMATED) 2022-10-27 Chel Jarvis Univers ity of 03:31:00 [facility] POCT GLUCOSE (AUTOMATED) 2022-10-26 Raul Rosen Univer sity of 22:30:00 [facility] POCT GLUCOSE (AUTOMATED) 2022-10-26 Raul Rosen Univer sity of 17:32:00 [facility] Branch POCT GLUCOSE (AUTOMATED) 2022-10-26 Raul Rosen Univer sity of 13:26:00 [facility] BASIC METABOLIC PANEL (NA, K, 2022-10-26 [facility] of CL, CO2, GLUCOSE, BUN, 11:36:00 Malachi [facility] ical CREATININE, CA) Branch CBC WITH DIFF 2022-10-26 [facility] of 11:36:00 [facility] MAGNESIUM 2022-10-26 [facility] of 02:30:00 [facility] BASIC METABOLIC PANEL (NA, K, 2022-10-26 [facility] of CL, CO2, GLUCOSE, BUN, 02:30:00 [facility] ical CREATININE, CA) Branch POCT GLUCOSE (AUTOMATED) 2022-10-26 Raul Rosen Univer sity of 01:48:00 [facility] POCT GLUCOSE (AUTOMATED) 2022-10-25 Raul Rosen Univer sity of 22:14:00 [facility] POCT GLUCOSE (AUTOMATED) 2022-10-25 Raul Rosen Univer sity of 17:33:00 [facility] ROSIO AURIS SURVEILLANCE BY 2022-10-25 Aleksandr Borja iversity of PCR (INFECTION CONTROL 15:47:00 [facility] ica PURPOSES) Branch POCT GLUCOSE (AUTOMATED) 2022-10-25 Raul Rosen Univer sity of 14:25:00 [facility] POCT GLUCOSE (AUTOMATED) 2022-10-25 Raul Rosen Univer sity of 13:36:00 [facility] CT ANGIOGRAM HEAD 2022-10-25 Liza Quiroz [place] of 10:18:30 [facility] CT HEAD WO CONTRAST 2022-10-25 Nini Mendenhall of 10:18:30 [facility] CT ANGIOGRAM NECK 2022-10-25 SukumarflLiza sloan [place] of 10:18:30 [facility] BASIC METABOLIC PANEL (NA, K, 2022-10-25 Nini Mendenhall niversity of CL, CO2, GLUCOSE, BUN, 09:42:00 [facility] ica CREATININE, CA) Branch CBC WITH DIFF 2022-10-25 Nini Mendenhall of 09:42:00 [facility] PROTHROMBIN TIME / INR 2022-10-[address] [facility] of 09:42:00 [facility] ACTIVATED PARTIAL THRMPLAS 2022-10-25 Nini Mendenhall ersity of ANUSHA 09:42:00 [facility] FIBRINOGEN 2022-10-25 Abdirashid [facility] of 09:42:00 [facility] XR ELBOW <3 VW LEFT 2022-10-25 [facility] f 02:12:03 [facility] XR SHOULDER <2 VW LEFT 2022-10-25 Liza Quiroz [facility] y of 02:12:03 [facility] XR WRIST 3+ VW LEFT 2022-10-25 Liza Quiroz [place] o f 02:12:03 [facility] CT HEAD WO CONTRAST 2022-10-25 [facility] f 01:45:02 [facility] URINE CULTURE 2022-10-25 [facility] of 00:42:00 [facility] HB ECG ROUTINE & RHYTHM STRIP 2022-10-25 Liza Quiroz iversity of 00:38:10 [facility] URINALYSIS 2022-10-25 Liza Quiroz [place] of 00:32:00 [facility] LIPASE 2022-10-25 [facility] of 00:12:00 [facility] MAGNESIUM 2022-10-25 [facility] of 00:12:00 [facility] TROPONIN I 2022-10-25 [facility] of 00:12:00 [facility] COMP. METABOLIC PANEL (34651) 2022-10-25 Liza Quiroz iversity of 00:12:00 [facility] CBC WITH DIFF 2022-10-25 Liza Quiroz of 00:12:00 [facility] PROTHROMBIN TIME / INR 2022-10-25 Liza Quiroz [facility] of 00:12:00 [facility] N-TERMINAL PRO-BNP 2022-10-25 Liza Quiroz [place] of 00:12:00 [facility] EMERGENCY DEPARTMENT 2022-10-24 Doctor Unassigned, [facility] ty of DOCUMENTS 06:01:00 [place] [facility] COVID-19 (ID NOW RAPID 2022-10-08 Adelaide Grossman [facility] y of TESTING) 14:58:00 [facility] COVID-19 (ID NOW RAPID 2022-10-08 [facility]) 14:58:00 [facility] LAB ONLY COVID INTERPRETATION 2022-10-08 Adelaide Grossman Un iversity of 14:58:00 [facility] POCT GLUCOSE (AUTOMATED) 2022-10-08 [place], Univers ity of 14:55:00 [facility] POCT GLUCOSE (AUTOMATED) 2022-10-08 [place], Univers ity of 14:55:00 [facility] POCT GLUCOSE (AUTOMATED) 2022-10-08 [place], Univers ity of 03:51:00 [facility] POCT GLUCOSE (AUTOMATED) 2022-10-08 [place], Univers ity of 03:51:00 [facility] POCT GLUCOSE (AUTOMATED) 2022-10-08 [place], Univers ity of 03:10:00 [facility] POCT GLUCOSE (AUTOMATED) 2022-10-08 [place], Univers ity of 03:10:00 [facility] COVID-19 (ID NOW RAPID 2022-10-07 Chauncey [facility] y of TESTING) 20:42:00 [facility] LAB ONLY COVID INTERPRETATION 2022-10-07 Adelaide Grossman Un iversity of 20:42:00 [facility] COVID-19 (ID NOW RAPID 2022-10-07 Chauncey [facility] y of TESTING) 20:42:00 [facility] LAB ONLY COVID INTERPRETATION 2022-10-07 Adelaide Grossman Un iversity of 20:42:00 [facility] HB ECG ROUTINE & RHYTHM STRIP 2022-10-07 [place] Un iversity of 14:09:51 [facility] HB ECG ROUTINE & RHYTHM STRIP 2022-10-07 Chandra Betancourt iversity of 14:09:51 [facility] MAGNESIUM 2022-10-07 Inga Grossmana University of 11:05:00 [facility] BASIC METABOLIC PANEL (NA, K, 2022-10-07 Adelaide Grossman Un iversity of CL, CO2, GLUCOSE, BUN, 11:05:00 [facility] ical CREATININE, CA) Branch CBC WITH DIFF 2022-10-07 [facility] of 11:05:00 [facility] MAGNESIUM 2022-10-07 [facility] of 11:05:00 [facility] BASIC METABOLIC PANEL (NA, K, 2022-10-07 [facility] iversity of CL, CO2, GLUCOSE, BUN, 11:05:00 [place] [facility] ica CREATININE, CA) Branch CBC WITH DIFF 2022-10-07 [facility] of 11:05:00 [facility] CT HEAD WO CONTRAST 2022-10-06 [facility] o f 21:38:43 [facility] CT HEAD WO CONTRAST 2022-10-06 [facility] o f 21:38:43 [facility] XR CHEST 1 VW 2022-10-06 [facility] of 18:00:00 [facility] XR CHEST 1 VW 2022-10-06 [facility] of 18:00:00 [facility] CARDIAC CATHETERIZATION 2022-10-06 [facility] ty of 15:30:17 [facility] ELECTROPHYSIOLOGY PROCEDURE 2022-10-06 [facility] ersity of 15:30:17 [facility] ELECTROPHYSIOLOGY PROCEDURE 2022-10-06 [facility] ersity of 15:30:17 [facility] CARDIAC CATHETERIZATION 2022-10-06 [facility] of 15:30:17 [facility] ELECTROPHYSIOLOGY PROCEDURE 2022-10-06 [facility] ersity of 15:30:17 [facility] ELECTROPHYSIOLOGY PROCEDURE 2022-10-06 [facility] ersity of 15:30:17 [facility] CBC WITH DIFF 2022-10-03 [facility] of 17:03:00 [facility] PROTHROMBIN TIME / INR 2022-10-03 [facility] 17:03:00 [facility] HB ECG ROUTINE & RHYTHM STRIP 2022-08-03 [place] iversity of 19:36:45 [facility] ASSIGNMENT OF BENEFITS 2022-08-03 Doctor Unassigned, Univer sity of 17:21:11 [place] [facility] EXTERNAL PROVIDER RECORDS 2022-07-07 Doctor Unassigned, Uni versity of 05:01:00 [place] [facility] POCT GLUCOSE (AUTOMATED) 2022-06-25 [facility] ersity of 17:11:00 [facility] POCT GLUCOSE (AUTOMATED) 2022-06-25 Annie [facility] ersity of 17:11:00 [facility] POCT GLUCOSE (AUTOMATED) 2022-06-25 Annie [facility] ersity of 14:07:00 [facility] POCT GLUCOSE (AUTOMATED) 2022-06-25 [facility] ersity of 14:07:00 [facility] MAGNESIUM 2022-06-25 [facility] of 10:22:00 [facility] BASIC METABOLIC PANEL (NA, K, 2022-06-25 Gita [place] Un iversity of CL, CO2, GLUCOSE, BUN, 10:22:00 [place] [facility] CREATININE, [place]) Branch CBC WITHOUT DIFF 2022-06-25 [facility] of 10:22:00 [facility] MAGNESIUM 2022-06-25 vtissa [facility] of 10:22:00 [facility] BASIC METABOLIC PANEL (NA, K, 2022-06-25 Gita [place] Un iversity of CL, CO2, GLUCOSE, BUN, 10:22:00 [place] [facility] CREATININE, [place]) Branch CBC WITHOUT DIFF 2022-06-25 [facility] of 10:22:00 [facility] POCT GLUCOSE (AUTOMATED) 2022-06-25 [facility] ersity of 01:29:00 [facility] POCT GLUCOSE (AUTOMATED) 2022-06-25 [facility] ersity of 01:29:00 [facility] POCT GLUCOSE (AUTOMATED) 2022-06-24 [facility] ersity of 22:20:00 [facility] POCT GLUCOSE (AUTOMATED) 2022-06-24 Annie [facility] ersity of 22:20:00 [facility] POCT GLUCOSE (AUTOMATED) 2022-06-24 Annie [facility] ersity of 18:06:00 [facility] POCT GLUCOSE (AUTOMATED) 2022-06-24 [facility] ers[facility] of 18:06:00 [facility] CBC WITHOUT DIFF 2022-06-[facility] 17:27:00 [facility] CBC WITHOUT DIFF 2022-06-24 [facility] of 17:27:00 [facility] MAGNESIUM 2022-06-24 [facility] of 17:26:00 [facility] BASIC METABOLIC PANEL (NA, K, 2022-06-24 Gita Michelle Un iversity of CL, CO2, GLUCOSE, BUN, 17:26:00 [place] [facility] CREATININE, [place]) Branch MAGNESIUM 2022-06-24 [facility] of 17:26:00 [facility] BASIC METABOLIC PANEL (NA, K, 2022-06-24 Gita Michelle Un iversity of CL, CO2, GLUCOSE, BUN, 17:26:00 [place] [facility] CREATININE, CA) Branch ELECTROPHYSIOLOGY PROCEDURE 2022-06-24 [facility] ersity of 13:36:26 [facility] ELECTROPHYSIOLOGY PROCEDURE 2022-06-24 [facility] ersity of 13:36:26 [facility] POCT GLUCOSE (AUTOMATED) 2022-06-24 Annie [facility] ersity of 13:01:00 [facility] POCT GLUCOSE (AUTOMATED) 2022-06-24 Annie [facility] ersity of 13:01:00 [facility] POCT GLUCOSE (AUTOMATED) 2022-06-24 Ca Meléndez versity of 03:58:00 [facility] POCT GLUCOSE (AUTOMATED) 2022-06-24 Ca Meléndez versity of 03:58:00 [facility] URINALYSIS 2022-06-23 Gita [facility] of 22:59:00 [facility] URINALYSIS 2022-06-23 [facility] of 22:59:00 [facility] POCT GLUCOSE (AUTOMATED) 2022-06-23 [place], [place] Uni versity of 22:38:00 [facility] POCT GLUCOSE (AUTOMATED) 2022-06-23 [place], [place] Uni versity of 22:38:00 [facility] POCT GLUCOSE (AUTOMATED) 2022-06-23 Low, [place] Uni versity of 17:07:00 [facility] POCT GLUCOSE (AUTOMATED) 2022-06-23 Low, [place] Uni versity of 17:07:00 [facility] POCT GLUCOSE (AUTOMATED) 2022-06-23 Low, [place] Uni versity of 12:31:00 [facility] POCT GLUCOSE (AUTOMATED) 2022-06-23 Low, [place] Uni versity of 12:31:00 [facility] MAGNESIUM 2022-06-23 [facility] of 09:22:00 [facility] BASIC METABOLIC PANEL (NA, K, 2022-06-23 Michelle Pelayo Un iversity of CL, CO2, GLUCOSE, BUN, 09:22:00 [place] [facility] CREATININE, CA) Branch CBC WITHOUT DIFF 2022-06-23 Michelle Pelayo [place] of 09:22:00 [facility] MAGNESIUM 2022-06-23 Gita [facility] of 09:22:00 [facility] BASIC METABOLIC PANEL (NA, K, 2022-06-23 Michelle Pelayo Un iversity of CL, CO2, GLUCOSE, BUN, 09:22:00 [place] [facility] CREATININE, CA) Branch CBC WITHOUT DIFF 2022-06-23 Gita [facility] of 09:22:00 [facility] HB ECG ROUTINE & RHYTHM STRIP 2022-06-23 Fawad Muñoz [place] of 04:21:59 [facility] HB ECG ROUTINE & RHYTHM STRIP 2022-06-23 Fawad Muñoz [place] of 04:21:59 [facility] POCT GLUCOSE (AUTOMATED) 2022-06-23 [place], [place] Uni versity of 02:30:00 [facility] POCT GLUCOSE (AUTOMATED) 2022-06-23 Low, [place] Uni versity of 02:30:00 [facility] PHOSPHORUS 2022-06-22 [facility] of 22:43:00 [facility] PHOSPHORUS 2022-06-22 [facility] of 22:43:00 [facility] METANEPHRINES, PLASMA 2022-06-22 Michelle Pelayo [place] of 22:42:00 [facility] POCT GLUCOSE (AUTOMATED) 2022-06-22 Low, [place] Uni versity of 21:59:00 [facility] POCT GLUCOSE (AUTOMATED) 2022-06-22 Low, [place] Uni versity of 21:59:00 [facility] POCT GLUCOSE (AUTOMATED) 2022-06-22 Low, [place] Uni versity of 16:52:00 [facility] POCT GLUCOSE (AUTOMATED) 2022-06-22 Low, [place] Uni versity of 16:52:00 [facility] POCT GLUCOSE (AUTOMATED) 2022-06-22 Low, [place] Uni versity of 13:13:00 [facility] POCT GLUCOSE (AUTOMATED) 2022-06-22 Low, Ca [place] Uni versity of 13:13:00 [facility] MAGNESIUM 2022-06-22 [facility] of 10:07:00 [facility] FERRITIN SERUM 2022-06-22 [facility] Center[facility] mistryEC[facility] of 10:07:00 [facility] VITAMIN B12, LEVEL 2022-06-22 [facility] Center[facility]ery mistryEC[facility] of 10:07:00 [facility] BASIC METABOLIC PANEL (NA, K, 2022-06-22 Bin Gomez iversity of CL, CO2, GLUCOSE, BUN, 10:07:00 [facility] ical CREATININE, [place]) [place] IRON PANEL 2022-06-22 Bin Gomez [place] of 10:07:00 [facility] CBC WITH DIFF 2022-06-22 Bin Gomez [place] of 10:07:00 [facility] MAGNESIUM 2022-06-22 [facility] of 10:07:00 [facility] FERRITIN SERUM 2022-06-22 Bin Gomez [place] of 10:07:00 [facility] VITAMIN B12, LEVEL 2022-06-22 [facility] of 10:07:00 [facility] BASIC METABOLIC PANEL (NA, K, 2022-06-22 Bin Gomez Un iversity of CL, CO2, GLUCOSE, BUN, 10:07:00 [facility] ical CREATININE, CA) [place] IRON PANEL 2022-06-22 Bin Gomez [place] of 10:07:00 [facility] [facility] CBC WITH DIFF 2022-06-22 [facility] 10:07:00 [facility] POCT GLUCOSE (AUTOMATED) 2022-06-22 LowCa Uni versity of 00:54:00 [facility] POCT GLUCOSE (AUTOMATED) 2022-06-22 Low, [place] Uni versity of 00:54:00 [facility] POCT GLUCOSE (AUTOMATED) 2022-06-21 Srinath Cohen Univers ity of 21:48:00 [facility] POCT GLUCOSE (AUTOMATED) 2022-06-21 Srinath Cohen Univers ity of 21:48:00 [facility] HB ECG ROUTINE & RHYTHM STRIP 2022-06-21 Bin Gomez iversity of 19:13:25 [facility] HB ECG ROUTINE & RHYTHM STRIP 2022-06-21 Bin Gomez Un iversity of 19:13:25 [facility] TRANSTHORACIC ECHO (TTE) 2022-06-21 Bin Gomez Univers ity of COMPLETE W/ CONTRAST 16:58:45 [facility] TRANSTHORACIC ECHO (TTE) 2022-06-21 Bin Gomez Univers ity of COMPLETE W/ CONTRAST 16:58:45 [facility] POCT GLUCOSE (AUTOMATED) 2022-06-21 Srinath Cohen Univers ity of 16:35:00 [facility] POCT GLUCOSE (AUTOMATED) 2022-06-21 Srinath Cohen Univers ity of 16:35:00 [facility] THYROID STIMULATING HORMONE 2022-06-21 Bin Gomez [facility] ersity of 12:08:00 [facility] COMP. METABOLIC PANEL (25270) 2022-06-21 Anastasiya Tapia [place] of 12:08:00 [facility] CBC WITH DIFF 2022-06-21 Anastasiya Tapia [place] of 12:08:00 [facility] GLYCOSYLATED HEMOGLOBIN (A1C) 2022-06-21 Safder, Bin Un iversity of 12:08:00 [facility] THYROID STIMULATING HORMONE 2022-06-21 Bin Gomez Univ ersity of 12:08:00 [facility] COMP. METABOLIC PANEL (21225) 2022-06-21 Anastasiya Tapia [place] of 12:08:00 [facility] CBC WITH DIFF 2022-06-21 Anastasiya Tapia [place] of 12:08:00 [facility] GLYCOSYLATED HEMOGLOBIN (A1C) 2022-06-21 Bin Gomez Un iversity of 12:08:00 [facility] COVID-19 (ID NOW RAPID 2022-06-21 Anastasiya Tapia [facility] sity of TESTING) 07:07:00 [facility] LAB ONLY COVID INTERPRETATION 2022-06-21 Anastasiya Tapia [place] of 07:07:00 [facility] COVID-19 (ID NOW RAPID 2022-06-21 Anastasiya Tapia [facility] sity of TESTING) 07:07:00 [facility] LAB ONLY COVID INTERPRETATION 2022-06-21 Anastasiya Tapia [place] of 07:07:00 [facility] LACTIC ACID WHOLE BLOOD 2022-06-21 Srinath Cohen [facility] ty of 04:05:00 [facility] LACTIC ACID WHOLE BLOOD 2022-06-21 Srinath Cohen [facility] ty of 04:05:00 [facility] CT HEAD WO CONTRAST 2022-06-21 Singer [facility] o f 00:42:20 [facility] CT HEAD WO CONTRAST 2022-06-21 Cohen, [facility] o f 00:42:20 [facility] ELECTROENCEPHALOGRAM 2022-06-21 [facility] 00:00:00 [facility] ELECTROENCEPHALOGRAM 2022-06-21 [facility] of 00:00:00 [facility] LACTIC ACID WHOLE BLOOD 2022-06-20 Srinath Cohen [facility] ty of 23:59:00 [facility] LACTIC ACID WHOLE BLOOD 2022-06-20 Srinath Cohen [facility] ty of 23:59:00 [facility] CT ANGIOGRAM ABDOMEN/PELVIS 2022-06-20 Srinath Cohen [facility] ersity of 20:21:56 [facility] CT ANGIOGRAM ABDOMEN/PELVIS 2022-06-20 Srinath Cohen [facility] ersity of 20:21:56 [facility] URINALYSIS 2022-06-20 Srinath Cohen of 19:04:00 [facility] URINE CULTURE 2022-06-20 [facility] 19:04:00 [facility] URINALYSIS 2022-06-20 [facility] 19:04:00 [facility] URINE CULTURE 2022-06-20 [facility] 19:04:00 [facility] XR CHEST 1 VW 2022-06-20 [facility] of 18:50:20 [place] [facility] XR CHEST 1 VW 2022-06-20 [facility] of 18:50:20 [facility] BLOOD CULTURE SCREEN 2022-06-20 [facility] 18:46:00 [facility] BLOOD CULTURE SCREEN 2022-06-20 [facility] 18:46:00 [facility] BLOOD CULTURE SCREEN 2022-06-20 Singer [facility] of 18:39:00 [facility] TROPONIN I 2022-06-20 [facility] 18:39:00 [facility] COMP. METABOLIC PANEL (20960) 2022-06-20 Srinath Cohen Un iversity of 18:39:00 [facility] CBC WITH DIFF 2022-06-20 Srinath Cohen of 18:39:00 [facility] BLOOD CULTURE SCREEN 2022-06-20 [facility] 18:39:00 [facility] TROPONIN I 2022-06-20 Srinath Cohen [place] of 18:39:00 [facility] COMP. METABOLIC PANEL (27245) 2022-06-20 Srinath Cohen iversity of 18:39:00 [facility] CBC WITH DIFF 2022-06-20 Srinath Cohen [place] of 18:39:00 [facility] EKG-12 LEAD 2022-06-20 Srinath Cohen [place] of 18:38:36 [facility] EKG-12 LEAD 2022-06-20 Srinath Cohen [place] of 18:38:36 [facility] LACTIC ACID WHOLE BLOOD 2022-06-[address] [facility] of 18:38:00 [facility] LACTIC ACID WHOLE BLOOD 2022-06-20 Srinath Cohen Universi ty of 18:38:00 [facility] EMERGENCY DEPARTMENT 2022-06-20 Doctor Unassigned, [facility] of DOCUMENTS 05:01:00 [place] [facility] HOSPITAL ADMISSION 2022-06-20 Doctor Unassigned, [place] of 05:01:00 [place] [facility] ASSIGNMENT OF BENEFITS 2021-05-07 Doctor Unassigned, Josette sandoval of 21:31:03 [place] [facility] Hysterectomy [facility] Plan of Care Planned Activity Planned [...] Influenza Vaccine (Season Ended)] Future Scheduled 2023-05-12 Influenza Vaccine [...] 00:00:00 [facility]procedure[facility] [code = 44915369] Future Scheduled 2020-09-[address] [facility] 00:[facility] (procedure) [code = 80590749] Future Scheduled 2020-09-[address] [facility] 00:00:00 [facility] (procedure) [code = 43953471] Future Scheduled 2020-09-[address] [facility] 00:00:00 [facility] (procedure) [code = 86347785] Future Scheduled 2020-09-[address] [facility] 00:00:00 [facility] (procedure) [code = 53200618] Future Scheduled 2020-09-[address] [facility] 00:00:00 [facility] (procedure) [code = 77155104] Future Scheduled 2020-09-[address] [facility] 00:00:00 [facility] (procedure) [code = 32127201] Future Scheduled 2020-09-[address] [facility] 00:00:00 [facility] (procedure) [code = 23647774] Future Scheduled 2020-09-[address] [facility] 00:00:00 [facility] (procedure) [code = 99909717] Future Scheduled 2020-09-[address] [facility] 00:00:00 [facility] (procedure) [code = 46026484] Future Scheduled 2020-09-[address] [facility] 00:00:00 [facility] (procedure) [code = 27039765] Future Scheduled 2020-09-[address] [facility] 00:00:00 [facility] (procedure) [code = 01210493] Future Scheduled 2020-09-[address] [facility] 00:00:00 [facility] (procedure) [code = 15903720] Future Scheduled 2020-09-[address] [facility] 00:00:00 (1 of 1 - [facility] Center [id number] [id number]) [code = PNEUMOCOCCAL 65+ YRS (1 of 1 - [id number] PCV13)] Future Scheduled 2002 PNEUMOCOCCAL 65+ YRS [facility] 00:00:00 (1 of 1 - Medical Center [id number] PCV13) [code = PNEUMOCOCCAL 65+ YRS (1 of 1 - [id number] PCV13)] Future Scheduled 1999-11-11 MEDICARE ANNUAL [facility] [...] for [facility] 00:00:00 [facility] [code = 062567928] Future Scheduled 1947 DIABETIC EYE EXAM [facility] 00:00:00 [code = DIABETIC EYE Medical Center EXAM] Future Scheduled 1947 Urine screening for [facility] 00:00:00 protein (procedure) Medical Center [code = 146761411] Future Scheduled [address] DIABETIC EYE EXAM [facility] 00:00:00 [code = DIABETIC EYE Medical Center EXAM] Future Scheduled 1947 Urine screening [facility] Test 00:00:00 protein (procedure) Medical Center [code = 557368402] Future Scheduled 1947 DIABETIC EYE EXAM [facility] 00:00:00 [code = DIABETIC EYE Medical Center EXAM] Future Scheduled 1947 Urine screening [facility] 00:00:00 protein (procedure) Medical Center [code = 254732708] Future Scheduled 1947 DIABETIC EYE EXAM [facility] 00:00:00 [code = DIABETIC EYE Medical Center EXAM] Future Scheduled 1947 Urine screening [facility] Test 00:00:00 protein (procedure) Medical Center [code = 279193082] Future Scheduled 1947 DIABETIC EYE EXAM [facility] 00:00:00 [code = DIABETIC EYE Medical Center EXAM] Future Scheduled 1947 Urine screening [facility] Test 00:00:00 protein (procedure) Medical Center [code = 550134341] Future Scheduled 1947 DIABETIC EYE EXAM [facility] 00:00:00 [code = DIABETIC EYE Medical Center EXAM] Future Scheduled 1947 Urine screening [facility] 00:00:00 protein (procedure) Medical Center [code = 880775349] Future Scheduled 1947 DIABETIC EYE EXAM [facility] 00:00:00 [code = DIABETIC EYE Medical Center EXAM] Future Scheduled 1947 Urine screening [facility] Test 00:00:00 protein (procedure) Medical Center [code = 900381874] Future Scheduled 1947 DIABETIC EYE EXAM [facility] 00:00:00 [code = DIABETIC EYE Medical Center EXAM] Future Scheduled 1947 Urine screening [facility] Test 00:00:00 protein (procedure) Medical Center [code = 879093959] Future Scheduled 1947 DIABETIC EYE EXAM [facility] 00:00:00 [code = DIABETIC EYE Medical Center EXAM] Future Scheduled 1947 Urine screening [facility] Test 00:00:00 protein (procedure) Medical Center [code = 453192994] Future Scheduled 1947 DIABETIC EYE EXAM [facility] 00:00:00 [code = DIABETIC EYE Medical Center EXAM] Future Scheduled 1947 Urine screening [facility] Test 00:00:00 protein (procedure) Medical Center [code = 944260020] Future Scheduled 1947 DIABETIC EYE EXAM [facility] 00:00:00 [code = DIABETIC EYE Medical Center EXAM] Future Scheduled 1947 Urine screening [facility] Test 00:00:00 protein (procedure) Medical Center [code = 665677573] Future Scheduled 1947 DIABETIC EYE EXAM [facility] 00:00:00 [code = DIABETIC EYE Medical Center EXAM] Future Scheduled 1947 Urine screening [facility] Test 00:00:00 protein (procedure) Medical Center [code = 026685513] Future Scheduled 1943 PNEUMOCOCCAL 65+ YRS [facility] [...] 00:00:00 SCAN] [facility] Future Scheduled 1937 DXA SCAN [code = DXA [facility] 00:00:00 SCAN] [facility] Future Scheduled 1937 DXA SCAN [code = DXA [facility] 00:00:00 SCAN] [facility] Future Scheduled 1937 DXA SCAN [code = DXA [facility] 00:00:00 SCAN] [facility] Future Scheduled 1937 DXA SCAN [code = DXA [facility] Test 00:00:00 SCAN] [facility] Future Scheduled 1937 DXA SCAN [code = DXA [facility] Test 00:00:00 SCAN] [facility] Future Scheduled 1937 DXA SCAN [code = DXA [facility] 00:00:00 SCAN] [facility] Future Scheduled 1937 DXA SCAN [code = DXA [facility] 00:00:00 SCAN] [facility] Future Scheduled 1937 DXA SCAN [code = DXA [facility] 00:00:00 SCAN] [facility] Future Scheduled 1937 DXA SCAN [code = DXA [facility] 00:00:00 SCAN] [facility] Future Scheduled 1937 DXA SCAN [facility]code [facility] DXA [facility] SCAN] Medical Center Encounters Start End Encounter Admission Attending Care Care Encounter Source Date/Time Date/Time Type Type Clinicians Facility Department ID 2022-10-12 Outpatient [facility] [id number] [place] 11:19:01 [id number] 2020-03-24 [id number] [facility] 23:52:00 [facility] 2023-03-09 2023-03-09 Outpatient R HARINI BETANCOURT [facility] [id number] Univers 10:30:00 23:59:00 [facility]22-[facility]-22 2022-12-22 Outpatient R TISH [facility] [id number] Univers 00:00:00 00:00:00 [facility] 2022-11-11 2022-11-11 [facility] ELIAS Hylton 1.2.840.114 [id number] Univers 07:05:00 23:59:00 Encounter Inez Montejo 350.1.13.10 ity of [facility] 4.2.7.2.686 Shawn as [id number] [facility] [address] [place] 2022-11-11 2022-11-11 Outpatient R [facility] ACO [id number] Univers 00:00:00 23:59:00 INEZ itantonia [facility] 2022-11-11 2022-11-11 Orders Doctor TRENT Castro2.840.114 [id number] Univers 00:00:00 00:00:00 Only Unassigned, RAYA 350.1.13.10 ity of [place] [facility] 4.2.7.2.686 Shawn as [id number] [facility] [address] [place] 2022-11-10 2022-11-10 Orders Doctor TRENT Castro2.840.114 [id number] Univers 00:00:00 00:00:00 Only Unassigned, RAYA 350.1.13.10 ity of [place] [facility] 4.2.7.2.686 Shawn as [id number] [facility] [address] [place] 2022-10-24 2022-11-01 [facility] [id number] Univers 17:16:00 17:33:00 JARVIS ity [facility] 2022-10-24 2022-11-01 [facility] Liza Quiroz 1.2.840.11 [id number] Univers 17:16:00 17:33:00 Encounter Raul Rosen RAYA 350.1.13.10 [facility] 4.2.7.2.686 [place] [id number] [facility] [address] 2022-10-10 2022-10-13 Inpatient E APRYL [facility] [id number] [facility] 13:24:00 18:20:00 CASSIUS 2022-10-11 2022-10-11 Telephone [facility] 1.2.840.114 [id number] Univers 00:00:00 00:00:00 [facility] 350.1.13.10 ity of [facility] 4.2.7.2.686 [place] [facility] [id number] [facility] [address] OFFICE BUILDING 2022-10-06 2022-10-08 Outpatient R KATE, [facility] [id number] Univers 06:20:00 13:18:00 DAYAMI ity [facility] 2022-10-06 2022-10-08 [facility] AsiaHarini 1 .2.840.114 [id number] Univers 06:20:00 13:18:00 Encounter Dayami Love RAYA 350.1.1 3.10 ity of [place] [address].2.7.2.686 Shawn as [id number] [facility] [address] 2022-10-06 2022-10-06 Surgery VIKTORIA Betancourt 1.2.840.114 [id number] Univers 08:00:00 09:45:00 [facility] 350.1.13.10 ity of [facility] 4.2.7.2.686 Shawn as [id number] [facility] [address] 2022-10-03 2022-10-03 Food Supervisor Pob, Adc Lab Main [facility] 1.2.8 40.114 [id number] Univers 10:30:00 10:45:00 Visit Harini Betancourt [facility] 350.1 .13.10 ity of [place] 4.2.7.2.[place] [id number] [address] 2022-10-03 2022-10-03 Outpatient R HARINI BETANCOURT [facility] [id number] Univers 10:30:00 10:30:00 HARINI BETANCOURT ity [facility] 2022-09-13 2022-09-13 Telephone VIKTORIA Betancourt 1.2.840.114 [id number] Univers 00:00:00 00:00:00 Maria Elena DOS SANTOS 350.1.13.10 ity of [facility] 4.2.7.2.686 Shawn as [id number] [facility] [address] [place] 2022-08-08 2022-08-08 Telephone VIKTORIA Betancourt 1.2.840.114 [id number] Univers 00:00:00 00:00:00 Maria Elena SOY 350.1.13.10 ity of [facility] 4.2.7.2.686 Shawn as [id number] [facility] [address] [place] 2022-08-03 2022-08-03 Hospital VIKTORIA Betancourt 1.2.840.114 [id number] Univers 11:00:00 23:59:00 Encounter Maria Elena DOS SANTOS 350.1.13.10 ity of [facility] 4.2.7.2.686 Shawn as [id number] [facility] [address] [place] 2022-08-03 2022-08-03 Office SHARIF Betancourt 1.2.840.114 [id number] Univers 13:00:00 13:15:00 Visit Maria Elena [facility] 350.1.13.10 ity of [facility] 4.2.7.2.[place] [id number] [facility] [address] [place] 2022-08-03 2022-08-03 Outpatient R HARINI BETANCOUTR [facility] [id number] Univers 13:00:00 13:00:00 HARINI BETANCOURT ity [facility] 2022-08-03 2022-08-03 Orders Doctor TRENT 1.2.840.114 [id number] Univers 00:00:00 00:00:00 Only Unassigned, RAAY 350.1.13.10 ity of [place] [facility] 4.2.7.2.686 Shawn as [id number] [facility] [address] 2022-07-14 2022-07-14 Outpatient R HARINI BETANCOURT [facility] [id number] Univers 16:30:12 23:59:00 ASIAHARINI LOGAN ity [facility] 2022-07-14 2022-07-14 Hospital Asia VIKTORIA 1.2.840.114 [id number] Univers 16:30:12 23:59:00 Encounter Maria Elena RAYA 350.1.13.10 ity of [facility] 4.2.7.2.686 Shawn as [id number] [facility] [address] 2022-07-14 2022-07-14 Telephone Asia VIKTORIA 1.2.840.114 [id number] Univers 00:00:00 00:00:00 Maria Elena RAYA 350.1.13.10 ity of [facility] 4.2.7.2.686 Shawn as [id number] [facility] [address] 2022-07-07 2022-07-07 Orders Doctor TRENT 1.2.840.114 [id number] Univers 00:00:00 00:00:00 Only Unassigned, RAYA 350.1.13.10 ity of [place] [facility] 4.2.7.2.686 Shawn as [id number] [facility] [address] 2022-06-27 2022-06-27 Transition ROSE Macias 1.2.840.114 [id number] Univers 00:00:00 00:00:00 of Care Jamil SHEPHERD 350.1.13.10 ity [place]2.[place] [id number] [facility] [address] 2022-06-20 2022-06-25 Inpatient X HOMMEL, [facility] [id number] Univers 13:17:00 13:00:00 ACACIA ity of [facility] 2022-06-20 2022-06-25 Hospital Srinath Cohen 1.2.840.1 [id number] Univers 13:17:00 13:00:00 Encounter Acacia Del Toro RAYA 350.1.13. 10 ity [facility] 4.2.7.2.686 [place] [id number] [facility] [address] 2022-06-24 2022-06-24 Surgery AsiaVIKTORIA schmid 1.2.840.114 [id number] Univers 08:35:00 09:20:00 Maria Elena DOS SANTOS 350.1.13.10 ity of [facility] 4.2.7.2.686 Shawn as [id number] [facility] [address] [place] 2021-05-10 2021-05-10 Nurse Therapy, Kevin Byrd [facility] 1.2. 840.114 [id number] Univers 19:27:33 20:27:33 Visit Unknown, [facility] 350.1.13.10 ity of [place] 4.2.7.2.686 Shawn as Terrell?Blea [id number] [address] Medical Office Building 2021-05-10 2021-05-10 Outpatient R UNKNOWN, [facility] [id number] Univers 19:30:00 19:30:00 ATTENDING ity [facility] 2021-05-09 2021-05-09 Telephone TRENT Tariq 1.2.933.618 [id number] Univers 00:00:00 00:00:00 Gescarlosca Justyn RAYA 350.1.13.10 ity of [facility] 4.2.7.2.686 Shawn as [id number] [facility] [address] 2021-05-07 2021-05-07 Laboratory Only, Ang Db Test [facility] 1.2.8 40.114 [id number] Univers 17:11:44 17:31:44 Only [facility] 350.1.13.10 ity of [place] 4.2.7.2.686 Shawn as Terrell?Blea [id number] [facility] [address] Medical Office Building 2021-05-07 2021-05-07 Outpatient R PAVAN [facility] [id number] Univers 17:15:00 17:15:00 JUD itantonia [facility] 2021-05-07 2021-05-07 Outpatient R PAVAN [facility] [id number] Univers 16:20:00 16:20:00 JUD [facility] 2021-05-07 2021-05-07 Orders Doctor TRENT 1.2.840.114 [id number] Univers 00:00:00 00:00:00 Only Unassigned, RAYA 350.1.13.10 ity of [place] [facility] 4.2.7.2.686 Shawn as [id number] [address] 2018-04-03 2018-04-05 Phone nullFlavo MNA [id number] Memoria 20:41:00 04:59:59 Message r Neurosurger 07 l y [facility] 2018-03-28 2018-03-30 Phone nullFlavo MNA [id number] Memoria 15:42:00 04:59:59 Message r Neurosurger 06 l y [facility] 2018-03-26 2018-03-28 Phone nullFlavo MNA [id number] Memoria 16:02:00 04:59:59 Message r Neurosurger 05 l y [facility] 2018-03-22 2018-03-22 Ambulatory nullFlavo MNA [id number] Memoria 17:15:00 17:15:00 Pre-Reg r Neurosurger 01 l y [facility] 2018-03-19 2018-03-21 Phone nullFlavo MNA [id number] Memoria 14:29:00 04:59:59 Message r Neurosurger 04 l y [facility] 2018-03-15 2018-03-17 Phone nullFlavo MNA [id number] Memoria 21:01:00 04:59:59 Message r Neurosurger 03 l y [facility] 2018-03-07 2018-03-09 Phone nullFlavo MNA [id number] Memoria 16:18:00 04:59:59 Message r Neurosurger 02 l y [facility] 2018-03-01 2018-03-03 Phone nullFlavo MNA [id number] Memoria 16:12:00 04:59:59 Message r Neurosurger 01 l y [facility] 2018-03-01 2018-03-03 Phone nullFlavo MNA [id number] Memoria 14:43:00 04:59:59 Message r Neurosurger 00 l y [facility] 2018-03-01 2018-03-01 Ambulatory nullFlavo MNA [id number] Memoria 16:15:00 16:15:00 Pre-Reg r Neurosurger 00 l y [facility] 2018-02-19 2018-02-27 Inpatient nullFlavo [facility] [id number] Memoria 07:05:00 21:19:00 r Austyn 00 l [facility] 2018-02-05 2018-02-13 Inpatient nullFlavo [facility] [id number] Memoria 22:15:00 16:22:00 r [place] 48 [facility] Results Test Description Test Time Test Comments Results Result Comments Source POCT GLUCOSE (AUTOMATED) 2022-11-01 17:45:48 Test Item Value Reference Range Interpretation Comme nts POCT GLU (test code = 6649280076) 377 mg/dL 70-110 H Lab Interpretation (test code = 61660-0) Abnormal [facility] GLUCOSE (AUTOMATED)2022-11-01 14:03:36 Test Item Value Reference Range Interpretation Comments POCT GLU (test code = 8001992844) 218 mg/dL 70-110 H Lab Interpretation (test code = Abnormal 67250-9) [facility] GLUCOSE (AUTOMATED)2022-11-01 02:05:30 Test Item Value Reference Range Interpretation Comments POCT GLU (test code = 6279758589) 195 mg/dL 70-110 H Lab Interpretation (test code = Abnormal 77693-5) [facility] GLUCOSE (AUTOMATED)2022-10-31 22:18:04 Test Item Value Reference Range Interpretation Comments POCT GLU (test code = 5526602420) 200 mg/dL 70-110 H Lab Interpretation (test code = Abnormal 61577-7) [facility] GLUCOSE (AUTOMATED)2022-10-31 17:40:15 Test Item Value Reference Range Interpretation Comments POCT GLU (test code = 6574976924) 231 mg/dL 70-110 H Lab Interpretation (test code = Abnormal 34488-6) [facility] GLUCOSE (AUTOMATED)2022-10-31 14:36:10 Test Item Value Reference Range Interpretation Comments POCT GLU (test code = 1807246844) 199 mg/dL 70-110 H Lab Interpretation (test code = Abnormal 25731-7) [facility] GLUCOSE (AUTOMATED)2022-10-31 03:28:00 Test Item Value Reference Range Interpretation Comments POCT GLU (test code = 9357897874) 198 mg/dL 70-110 H Lab Interpretation (test code = Abnormal 82508-7) [facility] GLUCOSE (AUTOMATED)2022-10-30 17:40:57 Test Item Value Reference Range Interpretation Comments POCT GLU (test code = 6323290933) 275 mg/dL 70-110 H Lab Interpretation (test code = Abnormal 17901-1) [facility] GLUCOSE (AUTOMATED)2022-10-30 13:56:28 Test Item Value Reference Range Interpretation Comments POCT GLU (test code = 1177089313) 191 mg/dL 70-110 H Lab Interpretation (test code = Abnormal 66937-6) [facility] WITHOUT [id number] 11:10:09 Test Item Value Reference Range Interpretation Comments WBC (test code = 6690-2) 7.95 See_Comment [A utomated message] The system [employer] generated this result transmit timur reference range : 4.30 - 11.10 10*3/?L. The reference range was not used to interpret this result as normal/abnormal . RBC (test code = 789-8) 3.22 See_Comment L [Au tomated message] The system [employer] generated this result transmit timur reference [...] 277 See_Comment [Au tomated message] The system [employer] generated this result transmit timur reference range : 166 - 358 10*3/?L. The reference range was not used to interpret this result as normal/abnormal . MPV (test code = 8.4 fL 9.5-12.9 L 24458-0) RDW-CV (test code = 13.3 % 12.0-15.5 788-0) RDW-SD (test code = 41.0 fL 39.0-49.9 37967-8) NRBC x10^3 (test code = See_Comment [Au tomated message] 5159370864) The system [employer] generated this result transmit timur reference range : 10*3/?L. The reference range was not used to interpret this result as normal/abnormal . NRBC/100 WBC (test code 0.0 See_Comment [Au tomated message] = 5158837480) The system [employer] generated this result transmit timur reference range : 0.0 - 10.0 /100 WBC s. The reference r fernando was not used to interpret this result as normal/abnormal . IPF % (test code = 8433341605) Lab Interpretation (test Abnormal code = 16895-3) [facility] GLUCOSE (AUTOMATED)2022-10-30 02:05:21 Test Item Value Reference Range Interpretation Comments POCT GLU (test code = 0982216936) 256 mg/dL 70-110 H Lab Interpretation (test code = Abnormal 17658-7) [facility] GLUCOSE (AUTOMATED)2022-10-29 22:52:51 Test Item Value Reference Range Interpretation Comments POCT GLU (test code = 2515761180) 193 mg/dL 70-110 H Lab Interpretation (test code = Abnormal 09843-5) [facility] GLUCOSE (AUTOMATED)2022-10-29 18:00:29 Test Item Value Reference Range Interpretation Comments POCT GLU (test code = 8016077294) 328 mg/dL 70-110 H Lab Interpretation (test code = Abnormal 75132-4) [facility] GLUCOSE (AUTOMATED)2022-10-29 14:03:49 Test Item Value Reference Range Interpretation Comments POCT GLU (test code = 1359876979) 214 mg/dL 70-110 H Lab Interpretation (test code = Abnormal 73786-6) [facility] GLUCOSE (AUTOMATED)2022-10-29 02:04:31 Test Item Value Reference Range Interpretation Comments POCT GLU (test code = 240 mg/dL 70-110 H Notifi ed Provider [id number]) Lab Interpretation (test Abnormal code = 64281-2) [facility] GLUCOSE (AUTOMATED)2022-10-28 23:29:03 Test Item Value Reference Range Interpretation Comments POCT GLU (test code = 5513592932) 227 mg/dL 70-110 H Lab Interpretation (test code = Abnormal 86999-6) [facility] GLUCOSE (AUTOMATED)2022-10-28 18:26:14 Test Item Value Reference Range Interpretation Comments POCT GLU (test code = 4030806672) 241 mg/dL 70-110 H Lab Interpretation (test code = Abnormal 80555-2) [facility] GLUCOSE (AUTOMATED)2022-10-28 14:37:46 Test Item Value Reference Range Interpretation Comments POCT GLU (test code = 7380761394) 190 mg/dL 70-110 H Lab Interpretation (test code = Abnormal 36228-0) [facility] METABOLIC PANEL (NA, K, CL, CO2, GLUCOSE, BUN, CREATININE, CA)2022-10-28 11:33:48 Test Item Value Reference Range Interpretation Comments NA (test code = 128 mmol/L 135-145 L 4039673042) K (test code = 4.1 mmol/L 3.5-5.0 3580155484) CL (test code = 99 mmol/L 98-108 8515217606) CO2 TOTAL (test code = 24 mmol/L 23-31 4505204569) AGAP (test code = 5 2-16 6565570754) BUN (test code = 15 mg/dL 7-23 1996027162) GLUCOSE (test code = 169 mg/dL 70-110 H 7681199027) CREATININE (test code = 0.55 mg/dL 0.50-1.04 4010631085) CALCIUM (test code = 8.1 mg/dL 8.6-10.6 L 5128314297) eGFR (test code = 105.0 mL/min/1.73m2 0809147060) WINDY (test code = WINDY) Association of [...] tests). Lab Interpretation Abnormal (test code = 67026-1) [facility] WITH [id number] 10:48:02 Test Item Value Reference Range Interpretation Comments WBC (test code = 6.28 See_Comment [Automated 5376-2) message] The sy stem which generated this result transmitted reference range : 4.30 - 11.10 10*3/?L. The reference range was not used to interpret this result as normal/abnormal . RBC (test code = 2.94 See_Comment L [Automated 906-8) message] The sy stem which generated this [...] RDW-SD (test code = 40.9 fL 39.0-49.9 10658-7) RDW-CV (test code = 13.6 % 12.0-15.5 788-0) PLT (test code = 287 See_Comment [Automated 777-3) message] The sy stem which generated this result transmitted reference range : 166 - 358 10*3/ ?L. The reference r fernando was not used to interpret this result as normal/abnormal . MPV (test code = 9.3 fL 9.5-12.9 L 47376-1) NRBC/100 WBC (test 0.0 See_Comment [Automat ed code = 6982768459) message] The system which generated this result transmitted reference range : 0.0 - 10.0 /100 WBCs. The refer ence range was not u sed to interpret th is result as normal/abnormal . NRBC x10^3 (test code See_Comment [Auto mated = 4364017514) message] The s ystem which generated this result transmitted reference range : 10*3/?L. The reference range was not used to interpret this result as normal/abnormal . GRAN MAT (NEUT) % 55.1 % (test code = 770-8) IMM GRAN % (test code 0.50 % = 4212794022) LYMPH % (test code = 31.2 % 736-9) MONO % (test code = 11.6 % 5905-5) EOS % (test code = 1.4 % 713-8) BASO % (test code = 0.2 % 706-2) GRAN MAT x10^3(ANC) 3.46 10*3/uL 1.88-7.09 (test code = 5332499695) IMM GRAN x10^3 (test 0.03 10*3/uL 0.00-0.06 code = 7166575089) LYMPH x10^3 (test code 1.96 10*3/uL 1.32-3.29 = 731-0) MONO x10^3 (test code 0.73 10*3/uL 0.33-0.92 = 742-7) EOS x10^3 (test code = 0.09 10*3/uL 0.03-0.39 711-2) BASO x10^3 (test code 0.01-0.07 = 704-7) Lab Interpretation Abnormal (test code = 11673-1) [facility] GLUCOSE (AUTOMATED)2022-10-28 02:11:22 Test Item Value Reference Range Interpretation Comments POCT GLU (test code = 6736278280) 268 mg/dL 70-110 H Lab Interpretation (test code = Abnormal 57388-7) [facility] GLUCOSE (AUTOMATED)2022-10-27 22:40:13 Test Item Value Reference Range Interpretation Comments POCT GLU (test code = 8936662369) 151 mg/dL 70-110 H Lab Interpretation (test code = Abnormal 85287-8) [facility] GLUCOSE (AUTOMATED)2022-10-27 17:35:16 Test Item Value Reference Range Interpretation Comments POCT GLU (test code = 9674558204) 239 mg/dL 70-110 H Lab Interpretation (test code = Abnormal 53205-3) [facility] GLUCOSE (AUTOMATED)2022-10-27 14:42:18 Test Item Value Reference Range Interpretation Comments POCT GLU (test code = 5390768839) 221 mg/dL 70-110 H Lab Interpretation (test code = Abnormal 30588-8) [facility] GLUCOSE (AUTOMATED)2022-10-27 03:32:29 Test Item Value Reference Range Interpretation Comments POCT GLU (test code = 258 mg/dL 70-110 H Notifi ed Provider [id number]) Lab Interpretation (test Abnormal code = 69933-2) [facility] GLUCOSE (AUTOMATED)2022-10-26 22:32:49 Test Item Value Reference Range Interpretation Comments POCT GLU (test code = 176 mg/dL 70-110 H Notifi ed Provider [id number]) Lab Interpretation (test Abnormal code = 73286-9) [facility] GLUCOSE (AUTOMATED)2022-10-26 17:34:42 Test Item Value Reference Range Interpretation Comments POCT GLU (test code = 307 mg/dL 70-110 H Notifi ed Provider [id number]) Lab Interpretation (test Abnormal code = 63031-3) [facility] GLUCOSE (AUTOMATED)2022-10-26 13:30:00 Test Item Value Reference Range Interpretation Comments POCT GLU (test code = 239 mg/dL 70-110 H Notifi ed Provider [id number]) Lab Interpretation (test Abnormal code = 82195-4) [facility] GLUCOSE (AUTOMATED)2022-10-26 03:40:06 Test Item Value Reference Range Interpretation Comments POCT GLU (test code = 225 mg/dL 70-110 H Notifi ed Provider [id number]) Lab Interpretation (test Abnormal code = 17197-8) [facility] GLUCOSE (AUTOMATED)2022-10-26 01:50:16 Test Item Value Reference Range Interpretation Comments POCT GLU (test code = 9916090343) 240 mg/dL 70-110 H Lab Interpretation (test code = Abnormal 80397-0) [facility] GLUCOSE (AUTOMATED)2022-10-25 22:16:54 Test Item Value Reference Range Interpretation Comments POCT GLU (test code = 8720550375) 188 mg/dL 70-110 H Lab Interpretation (test code = Abnormal 88835-5) [facility] GLUCOSE (AUTOMATED)2022-10-25 17:34:44 Test Item Value Reference Range Interpretation Comments POCT GLU (test code = 176 mg/dL 70-110 H Notifi ed Provider [id number]) Lab Interpretation (test Abnormal code = 35564-7) [facility] GLUCOSE (AUTOMATED)2022-10-25 14:26:21 Test Item Value Reference Range Interpretation Comments POCT GLU (test code = 7022791633) 205 mg/dL 70-110 H Lab Interpretation (test code = Abnormal 35391-5) [facility] METABOLIC PANEL (NA, K, CL, CO2, GLUCOSE, BUN, CREATININE, CA)2022-10-25 10:29:58 Test Item Value Reference Range Interpretation Comments NA (test code = 127 mmol/L 135-145 L 0304537638) K (test code = 3.8 mmol/L 3.5-5.0 9604344408) CL (test code = 90 mmol/L 98-108 L 4995971527) CO2 TOTAL (test code = 29 mmol/L 23-31 0868419065) AGAP (test code = 8 2-16 2553354440) BUN (test code = 21 mg/dL 7-23 7368029420) GLUCOSE (test code = 203 mg/dL 70-110 H 0058520274) CREATININE (test code = 0.68 mg/dL 0.50-1.04 5618474952) CALCIUM (test code = 8.8 mg/dL 8.6-10.6 4946108256) eGFR (test code = 82.2 mL/min/1.73m2 9952373485) WINDY (test code = WINDY) Association of [...] tests). Lab Interpretation Abnormal (test code = 75706-1) [facility] Test Item Value Reference Range Interpretation Comments APTT Patient (test code 63 See_Comment H [Au tomated message] = 3173-2) The system whic h generated this result transmitted ref erence range: 26 - 36 Seconds. The reference range was not used to int erpret this result as normal/abnormal . Lab Interpretation (test Abnormal code = 92924-9) [facility] 10:25:19 Test Item Value Reference Range Interpretation Comments Fibrinogen (test code = 6247243053) 574 mg/dL 167-453 H Lab Interpretation (test code = Abnormal 07228-3) [facility]PROT[facility] / [id number] 10:25:18 Test Item Value Reference Range Interpretation [...] tions. Lab Interpretation (test Normal code = 00221-7) [facility]CB with [id number] 10:19:38 Test Item Value Reference Range Interpretation Comments WBC (test code = 9.89 See_Comment [Automated 2190-2) message] The sy stem which generated this result transmitted reference range : 4.30 - 11.10 10*3/?L. The reference range was not used to interpret this result as normal/abnormal . RBC (test code = 3.78 See_Comment L [Automated 269-8) message] The sy stem which generated this [...] RDW-SD (test code = 39.8 fL 39.0-49.9 23084-7) RDW-CV (test code = 13.3 % 12.0-15.5 788-0) PLT (test code = 333 See_Comment [Automated 777-3) message] The sy stem which generated this result transmitted reference range : 166 - 358 10*3/ ?L. The reference r fernando was not used to interpret this result as normal/abnormal . MPV (test code = 9.3 fL 9.5-12.9 L 35526-2) NRBC/100 WBC (test 0.0 See_Comment [Automat ed code = 7202009102) message] The system which generated this result transmitted reference range : 0.0 - 10.0 /100 WBCs. The refer ence range was not u sed to interpret th is result as normal/abnormal . NRBC x10^3 (test code See_Comment [Auto mated = 0189468048) message] The s ystem which generated this result transmitted reference range : 10*3/?L. The reference range was not used to interpret this result as normal/abnormal . GRAN MAT (NEUT) % 70.8 % (test code = 770-8) IMM GRAN % (test code 0.40 % = 1058881845) LYMPH % (test code = 18.2 % 736-9) MONO % (test code = 10.1 % 5905-5) EOS % (test code = 0.3 % 713-8) BASO % (test code = 0.2 % 706-2) GRAN MAT x10^3(ANC) 7.00 10*3/uL 1.88-7.09 (test code = 7604231312) IMM GRAN x10^3 (test 0.04 10*3/uL 0.00-0.06 code = 1020244075) LYMPH x10^3 (test code 1.80 10*3/uL 1.32-3.29 = 731-0) MONO x10^3 (test code 1.00 10*3/uL 0.33-0.92 H = 742-7) EOS x10^3 (test code = 0.03 10*3/uL 0.03-0.39 711-2) BASO x10^3 (test code 0.01-0.07 = 704-7) Lab Interpretation Abnormal (test code = 43129-2) [facility] 02:02:22 Test Item Value Reference Range Interpretation Comments MAGNESIUM (test code = 5166225282) 1.6 mg/dL 1.7-2.4 L Lab Interpretation (test code = Abnormal 35971-2) [facility]N-[facility]AL [id number] 00:49:15 Test Item Value Reference Range Interpretation Comments NT-proBNP (test code = 444 pg/mL <=450 5195013958) WINDY (test code = WINDY) Biotin has been reported to cause a negative bias, interpret results relative to patient's use of biotin. Lab Interpretation (test Normal code = 64348-5) [facility] CenterTROP[facility] [id number] 00:41:33 Test Item Value Reference Range Interpretation Comments TROPONIN I (test code = 0.006 ng/mL <=0.034 0163406579) WINDY (test code = WINDY) Reference (Normal) [...] biotin. Lab Interpretation Normal (test code = 99195-5) [facility] CenterCOMP[facility] METABOLIC PANEL (68403)2022-10-25 00:41:13 Test Item Value Reference Range Interpretation Comments NA (test code = 122 mmol/L 135-145 L 4994499152) K (test code = 4.1 mmol/L 3.5-5.0 9901682509) CL (test code = 88 mmol/L 98-108 L 2977643463) CO2 TOTAL (test code = 23 mmol/L 23-31 4655290930) AGAP (test code = 11 2-16 2085981745) BUN (test code = 25 mg/dL 7-23 H 5129735837) GLUCOSE (test code = 206 mg/dL 70-110 H 8073110317) CREATININE (test code = 0.77 mg/dL 0.50-1.04 0013895362) TOTAL BILI (test code = 0.5 mg/dL 0.1-1.7 6492862176) CALCIUM (test code = 9.0 mg/dL 8.6-10.6 7617649178) T PROTEIN (test code = 6.8 g/dL 6.3-8.2 2365684612) ALBUMIN (test code = 4.0 g/dL 3.5-5.0 6675083913) ALK PHOS (test code = 87 U/L 34-122 6076309016) ALTv (test code = 16 U/L 5-35 1742-6) AST(SGOT) (test code = 20 U/L 13-40 2068515045) eGFR (test code = 71.2 mL/min/1.73m2 5246602811) WINDY (test code = WINDY) Association of [...] tests). Lab Interpretation Abnormal (test code = 60432-1) [facility] 00:40:33 Test Item Value Reference Range Interpretation Comments LIPASE (test code = 3000304936) 39 U/L 0-220 Lab Interpretation (test code = Normal 07260-7) [facility] CenterPROTHROMBIN TIME / [id number] 00:26:52 Test Item Value Reference Range Interpretation [...] tions. Lab Interpretation (test Normal code = 50351-4) [facility] CenterCBC WITH [id number] 00:19:53 Test Item Value Reference Range Interpretation Comments WBC (test code = 12.65 See_Comment H [Automated 1290-2) message] The sy stem which generated this result transmitted reference range : 4.30 - 11.10 10*3/?L. The reference range was not used to interpret this result as normal/abnormal . RBC (test code = 3.77 See_Comment L [Automated 709-8) message] The sy stem which [...] RDW-SD (test code = 39.7 fL 39.0-49.9 85867-9) RDW-CV (test code = 13.3 % 12.0-15.5 788-0) PLT (test code = 379 See_Comment H [Automated 777-3) message] The sy stem which generated this result transmitted reference range : 166 - 358 10*3/ ?L. The reference r fernando was not used to interpret this result as normal/abnormal . MPV (test code = 9.2 fL 9.5-12.9 L 92454-9) NRBC/100 WBC (test 0.0 See_Comment [Automat ed code = 0226863433) message] The system which generated this result transmitted reference range : 0.0 - 10.0 /100 WBCs. The refer ence range was not u sed to interpret th is result as normal/abnormal . NRBC x10^3 (test code See_Comment [Auto mated = 3717832413) message] The s ystem which generated this result transmitted reference range : 10*3/?L. The reference range was not used to interpret this result as normal/abnormal . GRAN MAT (NEUT) % 70.3 % (test code = 770-8) IMM GRAN % (test code 0.80 % = 0474412030) LYMPH % (test code = 18.7 % 736-9) MONO % (test code = 9.8 % 5905-5) EOS % (test code = 0.2 % 713-8) BASO % (test code = 0.2 % 706-2) GRAN MAT x10^3(ANC) 8.90 10*3/uL 1.88-7.09 H (test code = 4941581678) IMM GRAN x10^3 (test 0.10 10*3/uL 0.00-0.06 H code = 8247782232) LYMPH x10^3 (test code 2.36 10*3/uL 1.32-3.29 = 731-0) MONO x10^3 (test code 1.24 10*3/uL 0.33-0.92 H = 742-7) EOS x10^3 (test code = 0.03 10*3/uL 0.03-0.39 711-2) BASO x10^3 (test code 0.01-0.07 = 704-7) Lab Interpretation Abnormal (test code = 90597-6) [facility] GLUCOSE (AUTOMATED)2022-10-08 15:06:32 Test Item Value Reference Range Interpretation Comments POCT GLU (test code = 6687297144) 162 mg/dL 70-110 H Lab Interpretation (test code = Abnormal 25605-2) [facility] GLUCOSE (AUTOMATED)2022-10-08 15:06:32 Test Item Value Reference Range Interpretation Comments POCT GLU (test code = 4206129079) 162 mg/dL 70-110 H Lab Interpretation (test code = Abnormal 39118-3) [facility] GLUCOSE (AUTOMATED)2022-10-08 03:55:19 Test Item Value Reference Range Interpretation Comments POCT GLU (test code = 1431739051) 279 mg/dL 70-110 H Lab Interpretation (test code = Abnormal 33352-7) [facility] GLUCOSE (AUTOMATED)2022-10-08 03:55:19 Test Item Value Reference Range Interpretation Comments POCT GLU (test code = 1698346339) 279 mg/dL 70-110 H Lab Interpretation (test code = Abnormal 74549-6) [facility] GLUCOSE (AUTOMATED)2022-10-08 03:11:05 Test Item Value Reference Range Interpretation Comments POCT GLU (test code = 4303467650) 322 mg/dL 70-110 H Lab Interpretation (test code = Abnormal 25513-1) [facility] GLUCOSE (AUTOMATED)2022-10-08 03:11:05 Test Item Value Reference Range Interpretation Comments POCT GLU (test code = 1735241540) 322 mg/dL 70-110 H Lab Interpretation (test code = Abnormal 71496-0) [facility] CenterProthrombin Time / [id number] 17:14:10 Test Item Value Reference Range Interpretation [...] tions. Lab Interpretation (test Normal code = 82505-1) [facility] WITH [id number] 17:07:07 Test Item Value Reference Range Interpretation Comments WBC (test code = See_Comment [Automated 1090-2) message] The sy stem which generated this [...] RDW-SD (test code = 47.4 fL 39.0-49.9 88757-6) RDW-CV (test code = 15.6 % 12.0-15.5 H 788-0) PLT (test code = See_Comment [Automated 777-3) message] The sy stem which generated this result transmitted reference range : 166 - 358 10*3/ ?L. The reference r fernando was not used to interpret this result as normal/abnormal . MPV (test code = 9.8 fL 9.5-12.9 01079-3) NRBC/100 WBC (test See_Comment [Automat ed code = 4013917495) message] The system which generated this result transmitted reference range : 0.0 - 10.0 /100 WBCs. The refer ence range was not u sed to interpret th is result as normal/abnormal . NRBC x10^3 (test code See_Comment [Auto mated = 5709406649) message] The s ystem which generated this result transmitted reference range : 10*3/?L. The reference range was not used to interpret this result as normal/abnormal . GRAN MAT (NEUT) % 54.5 % (test code = 770-8) IMM GRAN % (test code 0.40 % = 2554303416) LYMPH % (test code = 36.8 % 736-9) MONO % (test code = 7.0 % 5905-5) EOS % (test code = 1.1 % 713-8) BASO % (test code = 0.2 % 706-2) GRAN MAT x10^3(ANC) 2.96 10*3/uL 1.88-7.09 (test code = 7299849785) IMM GRAN x10^3 (test 0.00-0.06 code = 3007928151) LYMPH x10^3 (test code 2.00 10*3/uL 1.32-3.29 = 731-0) MONO x10^3 (test code 0.38 10*3/uL 0.33-0.92 = 742-7) EOS x10^3 (test code = 0.06 10*3/uL 0.03-0.39 711-2) BASO x10^3 (test code 0.01-0.07 = 704-7) Lab Interpretation Abnormal (test code = 27206-2) [facility] CenterMETANEPHRINES, [id number] 20:47:27 Test Item Value Reference Range Interpretation Comments METANEPH (test <0.10 0.00-0.49 code = 48238-6) NORMETNEPH (test 0.83 nmol/L 0.00-0.89 code = 94441-3) METAPF INT (test See Note INTERPRETIV E code = 05805-5) INFORMATION: Metanephrines, Plasma (Free) This nacho t [...] its perform ance characteristics determined by [facility]. I t has not been cleared or approved by the [place] Food and Drug Administration. This test was perfor med in a CLIA certified laboratory and is intended for cl inical purposes.Perfor med By: [facility] [place] [address] [id number] aboratory Director: Juan Espinosa MD, PhD [facility] GLUCOSE (AUTOMATED)2022-06-25 17:12:53 Test Item Value Reference Range Interpretation Comments POCT GLU (test code = 6550126478) 200 mg/dL 70-110 H Lab Interpretation (test code = Abnormal 87500-9) [facility] GLUCOSE (AUTOMATED)2022-06-25 17:12:53 Test Item Value Reference Range Interpretation Comments POCT GLU (test code = 3618246792) 200 mg/dL 70-110 H Lab Interpretation (test code = Abnormal 61619-0) [facility] GLUCOSE (AUTOMATED)2022-06-25 14:20:12 Test Item Value Reference Range Interpretation Comments POCT GLU (test code = 7736729089) 171 mg/dL 70-110 H Lab Interpretation (test code = Abnormal 18620-9) [facility] GLUCOSE (AUTOMATED)2022-06-25 14:20:12 Test Item Value Reference Range Interpretation Comments POCT GLU (test code = 7292322665) 171 mg/dL 70-110 H Lab Interpretation (test code = Abnormal 86809-0) [facility] GLUCOSE (AUTOMATED)2022-06-25 01:30:55 Test Item Value Reference Range Interpretation Comments POCT GLU (test code = 9146102629) 207 mg/dL 70-110 H Lab Interpretation (test code = Abnormal 47444-1) [facility] GLUCOSE (AUTOMATED)2022-06-25 01:30:55 Test Item Value Reference Range Interpretation Comments POCT GLU (test code = 7270165975) 207 mg/dL 70-110 H Lab Interpretation (test code = Abnormal 77902-9) [facility] GLUCOSE (AUTOMATED)2022-06-24 22:26:40 Test Item Value Reference Range Interpretation Comments POCT GLU (test code = 2963717099) 195 mg/dL 70-110 H Lab Interpretation (test code = Abnormal 65781-4) [facility] GLUCOSE (AUTOMATED)2022-06-24 22:26:40 Test Item Value Reference Range Interpretation Comments POCT GLU (test code = 4188801256) 195 mg/dL 70-110 H Lab Interpretation (test code = Abnormal 88510-8) [facility] GLUCOSE (AUTOMATED)2022-06-24 18:07:03 Test Item Value Reference Range Interpretation Comments POCT GLU (test code = 3754745469) 376 mg/dL 70-110 H Lab Interpretation (test code = Abnormal 48659-9) [facility] GLUCOSE (AUTOMATED)2022-06-24 18:07:03 Test Item Value Reference Range Interpretation Comments POCT GLU (test code = 8008131795) 376 mg/dL 70-110 H Lab Interpretation (test code = Abnormal 89352-7) [facility]35 Test Item Value Reference Range Interpretation Comments MAGNESIUM (test code = 2527066041) 1.9 mg/dL 1.7-2.4 Lab Interpretation (test code = Normal 86427-8) [facility] (NA, K, CL, CO2, GLUCOSE, BUN, CREATININE, CA)2022-06-24 17:45:35 Test Item Value Reference Range Interpretation Comments NA (test code = 137 mmol/L 135-145 4124462024) K (test code = 3.3 mmol/L 3.5-5 L 3797935589) CL (test code = 101 mmol/L 98-108 8578119236) CO2 TOTAL (test code = 25 mmol/L 23-31 1463356291) AGAP (test code = 2-16 1876187353) BUN (test code = 17 mg/dL 7-23 6688022039) GLUCOSE (test code = 264 mg/dL 70-110 H 6168308160) CREATININE (test code = 0.94 mg/dL 0.5-1.04 8019477292) CALCIUM (test code = 9.1 mg/dL 8.6-10.6 1552414227) eGFR (test code = mL/min/1.73m2 7152018491) WINDY (test code = WINDY) Association of [...] tests). Lab Interpretation Abnormal (test code = 43657-8) [facility] 17:45:35 Test Item Value Reference Range Interpretation Comments MAGNESIUM (test code = 6390843536) 1.9 mg/dL 1.7-2.4 Lab Interpretation (test code = Normal 73584-0) [facility] (NA, K, CL, CO2, GLUCOSE, BUN, CREATININE, CA)2022-06-24 17:45:35 Test Item Value Reference Range Interpretation Comments NA (test code = 137 mmol/L 135-145 2475344114) K (test code = 3.3 mmol/L 3.5-5 L 4768453018) CL (test code = 101 mmol/L 98-108 2412872851) CO2 TOTAL (test code = 25 mmol/L 23-31 4198092849) AGAP (test code = 2-16 6609078401) BUN (test code = 17 mg/dL 7-23 2492549360) GLUCOSE (test code = 264 mg/dL 70-110 H 8689649739) CREATININE (test code = 0.94 mg/dL 0.5-1.04 5298110108) CALCIUM (test code = 9.1 mg/dL 8.6-10.6 7356782105) eGFR (test code = mL/min/1.73m2 1472342719) WINDY (test code = WINDY) Association of [...] tests). Lab Interpretation Abnormal (test code = 34163-3) [facility] WITHOUT [id number] 17:37:52 Test Item Value Reference Range Interpretation Comments WBC (test code = 6690-2) See_Comment [A utomated message] The system [employer] generated this result transmit timur reference range : 4.30 - 11.10 10*3/?L. The reference range was not used to interpret this result as normal/abnormal . RBC (test code = 789-8) See_Comment [Au tomated message] The system [employer] generated this result transmit timur reference [...] 777-3) See_Comment [Au tomated message] The system [employer] generated this result transmit timur reference range : 166 - 358 10*3/?L. The reference range was not used to interpret this result as normal/abnormal . MPV (test code = 9.0 fL 9.5-12.9 L 31828-4) RDW-CV (test code = 16.6 % 12-15.5 H 788-0) RDW-SD (test code = 44.0 fL 39-49.9 99391-6) NRBC x10^3 (test code = See_Comment [Au tomated message] 8766329116) The system [employer] generated this result transmit timur reference range : 10*3/?L. The reference range was not used to interpret this result as normal/abnormal . NRBC/100 WBC (test code See_Comment [Au tomated message] = 2709582163) The system [facility] generated this result transmit timur reference range : 0.0 - 10.0 /100 WBC s. The reference r fernando was not used to interpret this result as normal/abnormal . IPF % (test code = 7012810512) Lab Interpretation (test Abnormal code = 56260-6) [facility] WITHOUT [id number] 17:37:52 Test Item Value Reference Range Interpretation Comments WBC (test code = 6690-2) See_Comment [A utomated message] The system [facility] generated this result transmit timur reference range : 4.30 - 11.10 10*3/?L. The reference range was not used to interpret this result as normal/abnormal . RBC (test code = 789-8) See_Comment [Au tomated message] The system [facility] generated this result transmit timur [...] 777-3) See_Comment [Au tomated message] The system [facility] generated this result transmit timur reference range : 166 - 358 10*3/?L. The reference range was not used to interpret this result as normal/abnormal . MPV (test code = 9.0 fL 9.5-12.9 L 30175-1) RDW-CV (test code = 16.6 % 12-15.5 H 788-0) RDW-SD (test code = 44.0 fL 39-49.9 87601-9) NRBC x10^3 (test code = See_Comment [Au tomated message] 5414217328) The system [employer] generated this result transmit timur reference range : 10*3/?L. The reference range was not used to interpret this result as normal/abnormal . NRBC/100 WBC (test code See_Comment [Au tomated message] = 6195253018) The system [employer] generated this result transmit timur reference range : 0.0 - 10.0 /100 WBC s. The reference r fernando was not used to interpret this result as normal/abnormal . IPF % (test code = 1874232263) Lab Interpretation (test Abnormal code = 98644-2) [facility] GLUCOSE (AUTOMATED)2022-06-24 13:05:03 Test Item Value Reference Range Interpretation Comments POCT GLU (test code = 7837336177) 175 mg/dL 70-110 H Lab Interpretation (test code = Abnormal 13899-4) [facility] GLUCOSE (AUTOMATED)2022-06-24 13:05:03 Test Item Value Reference Range Interpretation Comments POCT GLU (test code = 2348802936) 175 mg/dL 70-110 H Lab Interpretation (test code = Abnormal 58096-0) [facility] GLUCOSE (AUTOMATED)2022-06-24 03:59:23 Test Item Value Reference Range Interpretation Comments POCT GLU (test code = 8205919905) 200 mg/dL 70-110 H Lab Interpretation (test code = Abnormal 11806-7) [facility] GLUCOSE (AUTOMATED)2022-06-24 03:59:23 Test Item Value Reference Range Interpretation Comments POCT GLU (test code = 0345693117) 200 mg/dL 70-110 H Lab Interpretation (test code = Abnormal 30108-6) [facility] GLUCOSE (AUTOMATED)2022-06-23 22:39:44 Test Item Value Reference Range Interpretation Comments POCT GLU (test code = 5586328254) 210 mg/dL 70-110 H Lab Interpretation (test code = Abnormal 95442-1) [facility] GLUCOSE (AUTOMATED)2022-06-23 22:39:44 Test Item Value Reference Range Interpretation Comments POCT GLU (test code = 3565653441) 210 mg/dL 70-110 H Lab Interpretation (test code = Abnormal 72655-2) [facility] GLUCOSE (AUTOMATED)2022-06-23 17:10:04 Test Item Value Reference Range Interpretation Comments POCT GLU (test code = 1786337203) 189 mg/dL 70-110 H Lab Interpretation (test code = Abnormal 29577-9) [facility] GLUCOSE (AUTOMATED)2022-06-23 17:10:04 Test Item Value Reference Range Interpretation Comments POCT GLU (test code = 1013184582) 189 mg/dL 70-110 H Lab Interpretation (test code = Abnormal 50052-0) [facility] GLUCOSE (AUTOMATED)2022-06-23 12:33:02 Test Item Value Reference Range Interpretation Comments POCT GLU (test code = 4040551585) 193 mg/dL 70-110 H Lab Interpretation (test code = Abnormal 63110-5) [facility] 12:33:02 Test Item Value Reference Range Interpretation Comments POCT GLU (test code = 8028456572) 193 mg/dL 70-110 H Lab Interpretation (test code = Abnormal 65078-6) [facility] 02:42:00 Test Item Value Reference Range Interpretation Comments POCT GLU (test code = 1638175920) 166 mg/dL 70-110 H Lab Interpretation (test code = Abnormal 03941-1) [facility] GLUCOSE (AUTOMATED)2022-06-23 02:42:00 Test Item Value Reference Range Interpretation Comments POCT GLU (test code = 2788145342) 166 mg/dL 70-110 H Lab Interpretation (test code = Abnormal 25770-5) [facility] [id number] 23:14:43 Test Item Value Reference Range Interpretation Comments PHOSPHORUS (test code = 3.1 mg/dL 2.5-5 Slig ht hemolysis 8615830564) Lab Interpretation (test Normal code = 56272-0) [facility] [id number] 23:14:43 Test Item Value Reference Range Interpretation Comments PHOSPHORUS (test code = 3.1 mg/dL 2.5-5 Slig ht hemolysis 8712741402) Lab Interpretation (test Normal code = 12325-4) [facility] GLUCOSE (AUTOMATED)2022-06-22 22:01:14 Test Item Value Reference Range Interpretation Comments POCT GLU (test code = 3359506150) 216 mg/dL 70-110 H Lab Interpretation (test code = Abnormal 52352-9) [facility] GLUCOSE (AUTOMATED)2022-06-22 22:01:14 Test Item Value Reference Range Interpretation Comments POCT GLU (test code = 4271427371) 216 mg/dL 70-110 H Lab Interpretation (test code = Abnormal 24797-3) [facility] GLUCOSE (AUTOMATED)2022-06-22 16:56:03 Test Item Value Reference Range Interpretation Comments POCT GLU (test code = 0645616487) 170 mg/dL 70-110 H Lab Interpretation (test code = Abnormal 23322-1) [facility] GLUCOSE (AUTOMATED)2022-06-22 16:56:03 Test Item Value Reference Range Interpretation Comments POCT GLU (test code = 8584485803) 170 mg/dL 70-110 H Lab Interpretation (test code = Abnormal 73329-0) [facility] GLUCOSE (AUTOMATED)2022-06-22 13:15:17 Test Item Value Reference Range Interpretation Comments POCT GLU (test code = 0562113871) 186 mg/dL 70-110 H Lab Interpretation (test code = Abnormal 51974-2) [facility] 13:15:17 Test Item Value Reference Range Interpretation Comments POCT GLU (test code = 9899904965) 186 mg/dL 70-110 H Lab Interpretation (test code = Abnormal 41262-1) [facility] GLUCOSE (AUTOMATED)2022-06-22 00:55:28 Test Item Value Reference Range Interpretation Comments POCT GLU (test code = 1483896306) 201 mg/dL 70-110 H Lab Interpretation (test code = Abnormal 47505-7) [facility] GLUCOSE (AUTOMATED)2022-06-22 00:55:28 Test Item Value Reference Range Interpretation Comments POCT GLU (test code = 8130890594) 201 mg/dL 70-110 H Lab Interpretation (test code = Abnormal 01033-6) [facility]22-[facility]-21 22:48:56 Test Item Value Reference Range Interpretation Comments Height (test code = in 1983844616) Weight (test code = lbs 1517976471) Systolic BP (test code = mmHg 7992006901) Diastolic BP (test code mmHg = 7573631651) Heart Rate (test code = bpm 6771921404) LVOT stroke volume (test 79.70 cm3 code = 2290830379) EF(Teich) (test code = 56.30 % 1992307693) LVIDD (test code = 4.60 cm 4917367747) LVIDS (test code = 3.30 cm 1202385789) Left Ventricular End 43.5 mL Systolic Volume by Teichholz Method (test code = 6233446) Left Ventricular End 99.6 mL Diastolic Volume by Teichholz Method (test code = 3731465) IVS (test code = 1.19 cm 7386490707) LVPWD (test code = 1.08 cm 9844597146) LVOT diameter (test code 2.05 cm = 5147606444) LVOT area (test code = 3.30 cm2 1972658981) FS (test code = 29 % 3512392740) MV Peak E Tian (test code 84.6 cm/s = 0813600685) MV Peak A Tian (test code 110.3 cm/s = 3209754320) E/A ratio (test code = ratio 2535871384) E wave decelartion time 0.25 s (test code = 6000060334) MV E/e' septal (test 4.0 cm/s code = 6074829110) LA Volume Index (BP) 36.7 mL/m2 (test code = 4349499197) LA volume (BP) (test 65.4 mL code = 3389980525) LVOT peak tian (test code 100.1 cm/s = 4543450162) LVOT mn grad (test code mmHg = 0403129601) BSA (test code = 1.78 m2 4004241182) LA size (test code = 3.4 cm 0169428895) LAV(MOD-sp2) (test code 61.30 mL = 1185774596) LAV(MOD-sp4) (test code 58.90 mL = 6089222879) Tapse (test code = 2.48 cm 7628336559) AV LVOT peak gradient mmHg (test code = 1479418846) LVOT peak VTI (test code 24.2 cm = 9067056380) LV V1 mean (test code = 64.80 cm/s 3094180976) MV Prop V (test code = 31.70 cm/s 3327278162) Ao root diam (test code 3.40 cm = 7388945210) Aortic root (test code = 3.4 cm 0718349096) Ao root annulus (test 3.4 cm code = 1444669471) PW (test code = 1.08 cm 0.6-1.4 8834590426) EF - 2D (test code = 56.30 % 95862579) Interventricular Septum 1.19 cm Diastolic Thickness by 2D (test code = 7204578) Left Ventricular Cardiac 4.8 L/min Output (test code = 2854016) Aortic HR (test code = BPM 7540581452) Aortic valve mean 86.9 cm/s velocity (test code = 5101905055) Ao peak tian (test code = 153.7 cm/s 1363672549) Ao VTI (test code = 33.7 cm 1937781126) AV area by cont VTI 2.4 cm2 (test code = 5851012557) AV area peak tian (test 2.2 cm2 code = 2333759793) Ao max PG (test code = 9.40 mm[Hg] 8087183519) AV peak gradient (test mmHg code = 3029557062) AV valve area (test code 2.37 cm2 = 5474266845) AV mean gradient (test mmHg code = 8784172899) IVC Diam Exp(MM) (test 1.87 cm code = 6632571593) IVC Diam Ins(MM) (test 0.78 cm code = 5791311630) Radiology Study observation (narrative) (test code = 73703-5) WINDY (test code = WINDY) ?Left?Ventricle: Left [...] enhancing agent used. Patient exhibited sinus bradycardia. [facility] 22:48:56 Test Item Value Reference Range Interpretation Comments Height (test code = in 0741807632) Weight (test code = lbs 2701012508) Systolic BP (test code = mmHg 8216096109) Diastolic BP (test code mmHg = 9241679766) Heart Rate (test code = bpm 9454138591) LVOT stroke volume (test 79.70 cm3 code = 6735232300) EF(Teich) (test code = 56.30 % 3280221761) LVIDD (test code = 4.60 cm 5888875756) LVIDS (test code = 3.30 cm 6402355760) Left Ventricular End 43.5 mL Systolic Volume by Teichholz Method (test code = 2961431) Left Ventricular End 99.6 mL Diastolic Volume by Teichholz Method (test code = 5295539) IVS (test code = 1.19 cm 0227041296) LVPWD (test code = 1.08 cm 5139782487) LVOT diameter (test code 2.05 cm = 7130780447) LVOT area (test code = 3.30 cm2 8321082999) FS (test code = 29 % 1334866906) MV Peak E Tian (test code 84.6 cm/s = 5686216410) MV Peak A Tian (test code 110.3 cm/s = 3848524940) E/A ratio (test code = ratio 1421986365) E wave decelartion time 0.25 s (test code = 0182997492) MV E/e' septal (test 4.0 cm/s code = 4298921463) LA Volume Index (BP) 36.7 mL/m2 (test code = 8100194799) LA volume (BP) (test 65.4 mL code = 0406260928) LVOT peak tian (test code 100.1 cm/s = 2692380977) LVOT mn grad (test code mmHg = 2505740511) BSA (test code = 1.78 m2 7461271463) LA size (test code = 3.4 cm 0808301133) LAV(MOD-sp2) (test code 61.30 mL = 9730557390) LAV(MOD-sp4) (test code 58.90 mL = 0991014949) Tapse (test code = 2.48 cm 0890703688) AV LVOT peak gradient mmHg (test code = 8304636486) LVOT peak VTI (test code 24.2 cm = 0638116179) LV V1 mean (test code = 64.80 cm/s 2134282785) MV Prop V (test code = 31.70 cm/s 0485912731) Ao root diam (test code 3.40 cm = 9789933720) Aortic root (test code = 3.4 cm 3611808389) Ao root annulus (test 3.4 cm code = 5134098611) PW (test code = 1.08 cm 0.6-1.2 3689938298) EF - 2D (test code = 56.30 % 44454197) Interventricular Septum 1.19 cm Diastolic Thickness by 2D (test code = 9350679) Left Ventricular Cardiac 4.8 L/min Output (test code = 5092916) Aortic HR (test code = BPM 2355413909) Aortic valve mean 86.9 cm/s velocity (test code = 5213150719) Ao peak tian (test code = 153.7 cm/s 4297494583) Ao VTI (test code = 33.7 cm 3952352845) AV area by cont VTI 2.4 cm2 (test code = 7537607604) AV area peak tian (test 2.2 cm2 code = 3519942817) Ao max PG (test code = 9.40 mm[Hg] 2301951759) AV peak gradient (test mmHg code = 6912718828) AV valve area (test code 2.37 cm2 = 2517597294) AV mean gradient (test mmHg code = 1330604243) IVC Diam Exp(MM) (test 1.87 cm code = 8587871716) IVC Diam Ins(MM) (test 0.78 cm code = 2181984038) Radiology Study observation (narrative) (test code = 86090-3) WINDY (test code = WINDY) ?Left?Ventricle: Left [...] enhancing agent used. Patient exhibited sinus bradycardia. [facility] GLUCOSE (AUTOMATED)2022-06-21 21:50:29 Test Item Value Reference Range Interpretation Comments POCT GLU (test code = 9423865199) 181 mg/dL 70-110 H Lab Interpretation (test code = Abnormal 81461-1) [facility] GLUCOSE (AUTOMATED)2022-06-21 21:50:29 Test Item Value Reference Range Interpretation Comments POCT GLU (test code = 4139689719) 181 mg/dL 70-110 H Lab Interpretation (test code = Abnormal 38628-7) [facility] GLUCOSE (AUTOMATED)2022-06-21 20:55:06 Test Item Value Reference Range Interpretation Comments POCT GLU (test code = 0500680587) 159 mg/dL 70-110 H Lab Interpretation (test code = Abnormal 28239-1) [facility] GLUCOSE (AUTOMATED)2022-06-21 20:55:06 Test Item Value Reference Range Interpretation Comments POCT GLU (test code = 6401727507) 159 mg/dL 70-110 H Lab Interpretation (test code = Abnormal 43868-1) [facility]-GLUCOSE [id number] 11:32:00 Test Item Value Reference Range Interpretation Comments POC-GLUCOSE METER 235 mg/dL 70-110 H : TESTED A T [facility] [address] (BEAKER) (test code = [place], 1538) [address]: Psychic Reader/Techni chika ID = [id number] for QUEEN LASSITER POCT-GLUCOSE [id number] 07:37:00 Test Item Value Reference Range Interpretation Comments POC-GLUCOSE METER 190 mg/dL 70-110 H : TESTED A T [facility] 67[address] (BEAKER) (test code = [place], 1538) 14667: Psychic Reader/Techni chika ID = [id number] for QUEEN LASSITER CBC W/PLT COUNT & AUTO [id number] 06:10:00 Test Item Value Reference Range Interpretation [...] PERCENT (BEAKER) (test code = 2801) POCT-GLUCOSE [id number] 22:16:00 Test Item Value Reference Range Interpretation Comments POC-GLUCOSE METER 275 mg/dL 70-110 H : TESTED A T [facility] 67[address] (BEAKER) (test code = [facility], 153) 906[address]: Psychic Reader/Techni chika ID = [id number] for YRIS HENAO POCT-GLUCOSE [id number] 16:44:00 Test Item Value Reference Range Interpretation Comments POC-GLUCOSE METER 200 mg/dL 70-110 H : TESTED A T [facility] 67[address] (BEAKER) (test code = [facility], 153) 09823: Psychic Reader/Techni chika ID = [id number] for QUEEN LASSITER POCT-GLUCOSE [id number] 12:11:00 Test Item Value Reference Range Interpretation Comments POC-GLUCOSE METER 180 mg/dL 70-110 H : TESTED A T [facility] 67[address] (BEAKER) (test code = [facility], 1538) 41750: Psychic Reader/Techni chika ID = [id number] for NW CATHERINE, SHAYY POCT-GLUCOSE [id number] 08:17:00 Test Item Value Reference Range Interpretation Comments POC-GLUCOSE METER 158 mg/dL 70-110 H : TESTED A T [facility] 6720 (BEAKER) (test code = [facility], 1538) 938[address]: Psychic Reader/Techni chika ID = [id number] for NW AJIAKU, SHAYY CBC W/PLT COUNT & AUTO [id number] 04:14:00 Test Item Value Reference Range Interpretation [...] PERCENT (BEAKER) (test code = 2801) POCT-GLUCOSE [id number] 16:12:00 Test Item Value Reference Range Interpretation Comments POC-GLUCOSE METER 233 mg/dL 70-110 H : TESTED A T [facility] 6720 (BEAKER) (test code = [facility], 1538) 15439: Psychic Reader/Techni chika ID = [id number] for SHAYY ALBRIGHT POCT-GLUCOSE [id number] 12:02:00 Test Item Value Reference Range Interpretation Comments POC-GLUCOSE METER 190 mg/dL 70-110 H : TESTED A T [facility] 6720 (BEAKER) (test code = [facility], 1538) 95918: Psychic Reader/Techni chika ID = [id number] for SHAYY ALBRIGHT STOOL CULTURE + SHIGA [id number] 09:19:00 Test Item Value Reference Range Interpretation Comments CULTURE ([facility]) No Salmonella, Shigella (test code = 1095) or Campylobacter isolated POCT-GLUCOSE [id number] 07:46:00 Test Item Value Reference Range Interpretation Comments POC-GLUCOSE METER 174 mg/dL 70-110 H : TESTED A T [facility] 6720 (BEAKER) (test code = [facility], 1538) 86379: Psychic Reader/Techni chika ID = [id number] for SHAYY ALBRIGHT CBC W/PLT COUNT & AUTO [id number] 06:53:00 Test Item Value Reference Range Interpretation [...] 0-1 PERCENT (BEAKER) (test code = 2801) [id number] 06:20:00 Test Item Value Reference Range Interpretation Comments MAGNESIUM (BEAKER) 1.7 mg/dL 1.6-2.6 Specimen slightly (test code = 627) hemolyzed Psychic Reader ID - LATA WBASIC METABOLIC [id number] 06:20:00 Test Item Value Reference Range Interpretation [...] S NOT APPLICABLE FOR DIALYSIS PATIEN TS. Psychic Reader ID Suman GUIDO WHEPATIC FUNCTION [id number] 06:20:00 Test Item Value Reference Range Interpretation [...] Specimen slightly (test code = 347) hemolyzed Psychic Reader ID Suman GUIOD WPOCT-GLUCOSE [id number] 21:46:00 Test Item Value Reference Range Interpretation Comments POC-GLUCOSE METER 181 mg/dL 70-110 H : [facility] (test code = [place], 1538) [address]: Psychic Reader/Techni chika ID = [id number] for LETTY GUPTAVanessaYu CT, BRAIN, WITHOUT [id number] 18:11:00FINAL REPORT CT, BRAIN, WITHOUT CONTRAST INDICATION: [...] Annmarie Burch Verified Date/Time: 03/26/2020 18:11:57 POCT-GLUCOSE [id number] 17:31:00 Test Item Value Reference Range Interpretation Comments POC-GLUCOSE METER 209 mg/dL 70-110 H : Notified RN/MD: (NANDINILINDA) (test code = TESTED AT [facility] 67[address] 1538) [facility], [address]: Psychic Reader/Techni chika ID = [id number] for KAMALJIT ALANIS MEERA SHIGA TOXIN [id number] 15:19:00 Test Item Value Reference Range Interpretation Comments SHIGA TOXIN 1 (BEAKER) (test Not detected Not detected code = 2177) SHIGA TOXIN 2 (BEAKER) (test Not detected Not detected code = 2179) POCT-GLUCOSE [id number] 11:53:00 Test Item Value Reference Range Interpretation Comments POC-GLUCOSE METER 159 mg/dL 70-110 H : TESTED A T [facility] 67[address] (BEAKER) (test code = [facility], 1538) 43846: Psychic Reader/Techni chika ID = [id number] for JUAN F GANJERALD SANDRA STOOL PATH [id number] 11:36:00 Test Item Value Reference Range Interpretation Comments PATHOGEN EXAM CHARGED (BEAKER) (test Done code = 2381) POCT-GLUCOSE [id number] 07:11:00 Test Item Value Reference Range Interpretation Comments POC-GLUCOSE METER 146 mg/dL 70-110 H : TESTED A T [facility] 67[address] (BEAKER) (test code = [place], 1538) [address]: Psychic Reader/Techni chika ID = [id number] for MILY GROVE [id number] 06:04:00 Test Item Value Reference Range Interpretation Comments MAGNESIUM (BEAKER) (test code = 1.9 mg/dL 1.6-2.6 627) Psychic Reader ID - WAGNER LBASIC METABOLIC [id number] 06:04:00 Test Item Value Reference Range Interpretation [...] S NOT APPLICABLE FOR DIALYSIS PATIEN TS. Psychic Reader ID - PIAYA LHEPATIC FUNCTION [id number] 06:04:00 Test Item Value Reference Range Interpretation [...] (test code = 15 U/L 6-55 347) Psychic Reader ID - WAGNER LCBC W/PLT COUNT & AUTO [id number] 05:20:00 Test Item Value Reference Range Interpretation [...] PERCENT (BEAKER) (test code = 2801) POCT-GLUCOSE [id number] 21:12:00 Test Item Value Reference Range Interpretation Comments POC-GLUCOSE METER 154 mg/dL 70-110 H : TESTED A T [facility] 6720 (BEAKER) (test code = [facility], 1538) 29351: Psychic Reader/Techni chika ID = [id number] for JEREMY GUPTA POCT-GLUCOSE [id number] 17:43:00 Test Item Value Reference Range Interpretation Comments POC-GLUCOSE METER 152 mg/dL 70-110 H : TESTED A T [facility] 6720 (BEAKER) (test code = [facility], 1538) 36445: Psychic Reader/Techni chika ID = [id number] for [place] SARS-COV2/RT-PCR ([facility])2020-03-25 13:40:00 Test Item Value Reference Range Interpretation Comments SARS-COV2/RT-PCR (test code = Negative Not Detected, Negative [id number]) SARS-COV-2 [facility] (test code = 4399139) Negative result for this test determines that [...] of the Act.Fact Sheet for Healthcare Prov iders:https://www.[employer]/sites/default/files/product/documents/Fact_Sheet_HC _Ucmssmdua_Ytzc_GXNE-CeB-5.pdfFact Sheet for Healthcare Patients:https://www.[employer]/sites/default/files/product/docume nts/Zsbg_Dxlpb_Uvkhsvks_Ixjh_DNNB-YnJ-5.pdfPerforming Laboratory:[facility], [place] [address]WBNF-UXZHXBU METER 2020-03-25 11:24:00 Test Item Value Reference Range Interpretation Comments POC-GLUCOSE METER 165 mg/dL 70-110 H : TESTED A T [facility] 6720 (CALI) (test code = ANABELLALAWSON Ortega [facility], 1538) 68221: Psychic Reader/Techni chika ID = [id number] for SANDRA HOLLIS TSH/FREE T4 IF [id number] 10:59:00 Test Item Value Reference Range Interpretation Comments THYROID STIMULATING HORMONE 0.622 uIU/mL 0.350-4.940 (BEAKER) (test code = 772) Psychic Reader ID - PIAYA LHEMOGLOBIN [id number] 10:59:00 Test Item Value Reference Range Interpretation Comments HEMOGLOBIN A1C (PicRate.MeLINDA) (test code = 6.9 % 4.3-6.1 H 368) TROPONIN [id number] 10:50:00 Test Item Value Reference Range Interpretation [...] failure, acidosis, acute neurological disease, and persistent tachyarrhythmia.Psychic Reader ID - PIAYA LBASIC METABOLIC [id number] 10:42:00 Test Item Value Reference Range Interpretation [...] S NOT APPLICABLE FOR DIALYSIS PATIEN TS. Psychic Reader ID - PIAYA LHEPATIC FUNCTION [id number] 10:42:00 Test Item Value Reference Range Interpretation [...] (test code = 10 U/L 6-55 347) Psychic Reader ID - WAGNER [id number] 10:41:00 Test Item Value Reference Range Interpretation Comments PHOSPHORUS (BEAKER) (test code = 3.2 mg/dL 2.3-4.7 604) Psychic Reader ID - PITYREE [id number] 10:41:00 Test Item Value Reference Range Interpretation Comments MAGNESIUM (BEAKER) (test code = 2.0 mg/dL 1.6-2.6 627) Psychic Reader ID - WAGNER LPOCT-GLUCOSE [id number] 09:10:00 Test Item Value Reference Range Interpretation Comments POC-GLUCOSE METER 116 mg/dL 70-110 H : TESTED A T [facility] 6720 (BEAKER) (test code = DINA Ortega [facility], 1538) 537[address]: Psychic Reader/Techni chika ID = [id number] for CO LANCE NICHOLAS SHAHID RAD, CHEST, 1 VIEW, NON [id number] 07:49:00Reason for exam:->chest painShould this be performed at the bedside?->YesFINAL REPORT CLINICAL HISTORY: chest pain TECHNIQUE: 1 view of the chest. COMPAR NIEVES: None IMPRESSION: There are linear bandlike opacities in the bilateral mid and lower lungs. There are no significant effusions. The cardiomediastinal silhouette is magnified by technique. Signed: Keturah Gillespie MDReport Verified Date/Time: 03/25/2020 07:49:59 Reading Location: [facility] Radiology Reading Room C. DIFFICILE GDH [id number] 06:54:00 Test Item Value Reference Range Interpretation Comments CDT TOXIN (test code Negative Negative = [id number]) CDT GDH ANTIGEN (test Negative Negative No ind ication of code = [id number]) Clostridi um difficile infection and n o [...] prior to clinical use.URINALYSIS WITH MICROSCOPIC IF [id number] 06:35:00 Test Item Value Reference Range Interpretation [...] = 463) SOURCE(BEAKER) (test code = 2795) Psychic Reader ID - [auto]Psychic Reader ID - techURINALYSIS [id number] 06:35:00 Test Item Value Reference Range Interpretation Comments RBC UA (BEAKER) (test code = 519) 3 /HPF WBC UA (BEAKER) (test code = 520) 11 /HPF BACTERIA (BEAKER) (test code = 517) Rare SQUAMOUS EPITHELIAL (BEAKER) (test 1 /HPF code = 516) Psychic Reader ID - techPOCT-GLUCOSE [id number] 05:08:00 Test Item Value Reference Range Interpretation Comments POC-GLUCOSE METER 128 mg/dL 70-110 H : TESTED A T [facility] 6720 (BEAKER) (test code = [place], 1538) [address]: Psychic Reader/Techni chika ID = [id number] for As Meena beckett CHEM [id number] 12:00:00 Test Item Value Reference Range Interpretation Comments eGFR (test code = eGFR) 86 [facility]2018-06-19 12:00:00 Test Item Value Reference Range Interpretation Comments AGAP (test code = AGAP) 9.5 10.0-20.0 [facility]2018-06-19 12:00:00 Test Item Value Reference Range Interpretation Comments CO2 (test code = CO2) 33 24-32 [facility]2018-06-19 12:00:00 Test Item Value Reference Range Interpretation Comments Calcium Lvl (test code = Calcium Lvl) 8.7 8.5-10.5 [facility]2018-06-19 12:00:00 Test Item Value Reference Range Interpretation Comments Glucose Lvl (test code = Glucose Lvl) 201 70-99 [facility]2018-06-19 12:00:00 Test Item Value Reference Range Interpretation Comments BUN (test code = BUN) 04-01 [facility]2018-06-19 12:00:00 Test Item Value Reference Range Interpretation Comments Creatinine Lvl (test code = Creatinine 0.61 0.50-1.40 Lvl) [facility]2018-06-19 12:00:00 Test Item Value Reference Range Interpretation Comments Sodium Lvl (test code = Sodium Lvl) 127 135-145 [facility]2018-06-19 12:00:00 Test Item Value Reference Range Interpretation Comments Chloride Lvl (test code = Chloride Lvl) 89 95-109 [facility]2018-06-19 12:00:00 Test Item Value Reference Range Interpretation Comments Potassium Lvl (test code = Potassium 4.5 3.5-5.1 Lvl) [facility]2018-06-18 08:31:00 Test Item Value Reference Range Interpretation Comments eGFR (test code = eGFR) 86 [facility]2018-06-18 08:31:00 Test Item Value Reference Range Interpretation Comments BUN (test code = BUN) 18 04-01 [facility]2018-06-18 08:31:00 Test Item Value Reference Range Interpretation Comments Glucose Lvl (test code = Glucose Lvl) 181 70-99 [facility]2018-06-18 08:31:00 Test Item Value Reference Range Interpretation Comments Creatinine Lvl (test code = Creatinine 0.61 0.50-1.40 Lvl) [facility]2018-06-18 08:31:00 Test Item Value Reference Range Interpretation Comments Calcium Lvl (test code = Calcium Lvl) 8.5 8.5-10.5 [facility]2018-06-18 08:31:00 Test Item Value Reference Range Interpretation Comments CO2 (test code = CO2) 34 24-32 [facility]2018-06-18 08:31:00 Test Item Value Reference Range Interpretation Comments Chloride Lvl (test code = Chloride Lvl) 88 95-109 [facility]2018-06-18 08:31:00 Test Item Value Reference Range Interpretation Comments Potassium Lvl (test code = Potassium 4.3 3.5-5.1 Lvl) [facility]2018-06-18 08:31:00 Test Item Value Reference Range Interpretation Comments Sodium Lvl (test code = Sodium Lvl) 131 135-145 [facility]2018-06-18 08:31:00 Test Item Value Reference Range Interpretation Comments AGAP (test code = AGAP) 13.3 10.0-20.0 [id number] 08:31:00 Test Item Value Reference Range Interpretation Comments Hgb (test code = Hgb) 9.4 12.0-16.0 [facility] HospitalBjtwleaWFIFZUJZKK6654-06-93 08:31:00 Test Item Value Reference Range Interpretation Comments RBC (test code = RBC) 3.38 4.20-5.40 [facility] HospitalOfsslacFYSJWQIHVE6814-68-93 08:31:00 Test Item Value Reference Range Interpretation Comments WBC (test code = WBC) 8.8 3.7-10.4 [place] [id number] 08:31:00 Test Item Value Reference Range Interpretation Comments Hct (test code = Hct) 27.7 36.0-48.0 [facility] HospitalKdnojngTSZIIWXRVO5727-73-63 08:31:00 Test Item Value Reference Range Interpretation Comments MPV (test code = MPV) 8.5 7.4-10.4 [place] [address]-06-18 08:31:00 Test Item Value Reference Range Interpretation Comments Platelet (test code = Platelet) 213 133-450 [facility] HospitalKvfnphsLGIPLLLNES3370-55-06 08:31:00 Test Item Value Reference Range Interpretation Comments RDW (test code = RDW) 15.1 11.5-14.5 [facility] HospitalEleshyzEHWSXLZLHO7571-86-86 08:31:00 Test Item Value Reference Range Interpretation Comments MCHC (test code = MCHC) 34.0 32.0-36.0 [facility] HospitalFkzvfdmPMRFRPQAOI8164-00-17 08:31:00 Test Item Value Reference Range Interpretation Comments MCH (test code = MCH) 27.8 pg 27.0-31.0 [facility] HospitalOhyeeayLTERSUYXRO5136-23-40 08:31:00 Test Item Value Reference Range Interpretation Comments MCV (test code = MCV) 81.8 80.0-98.0 [facility] HospitalJsyltuiVAZCSLXLZB6073-78-11 08:31:00 Test Item Value Reference Range Interpretation Comments Lymphocytes (test code = Lymphocytes) 11.3 20.0-40.0 [facility] HospitalKavgoucXHMMCYTPMO5626-41-43 08:31:00 Test Item Value Reference Range Interpretation Comments Segs (test code = Segs) 81.3 45.0-75.0 [facility] HospitalUphoyqeCJJXHGUNIF8518-13-81 08:31:00 Test Item Value Reference Range Interpretation Comments Basophils (test code = 0.3 See_Comment [Aut omated message] The Basophils) system which ge nerated this result tra nsmitted reference range : <=1.0. The reference r fernando was not used to int erpret this result as normal/abnormal . [facility] HospitalPufplymNCUOKOOXFX4530-89-58 08:31:00 Test Item Value Reference Range Interpretation Comments Eosinophils (test code = 2.2 See_Comment [A utomated message] The Eosinophils) system which ge nerated this result tra nsmitted reference range : <=4.0. The reference r fernando was not used to int erpret this result as normal/abnormal . [facility] HospitalBjqqtenABNQSUYPHQ6287-18-30 08:31:00 Test Item Value Reference Range Interpretation Comments Monocytes (test code = Monocytes) 4.9 2.0-12.0 [facility] HospitalPbaxraiCHFBWVQCDT4429-10-79 08:31:00 Test Item Value Reference Range Interpretation Comments Lymphocytes # (test code = Lymphocytes 1.0 1.0-5.5 #) [facility] HospitalKfumoqjCMUXIHHCYW1008-01-91 08:31:00 Test Item Value Reference Range Interpretation Comments Segs-Bands # (test code = Segs-Bands #) 7.2 1.5-8.1 [facility] HospitalXvgbmnvXHSVWTDOKS6316-55-66 08:31:00 Test Item Value Reference Range Interpretation Comments Eosinophils # (test code 0.2 See_Comment [A utomated message] The = Eosinophils #) system whic h generated this result tra nsmitted reference range : <=0.5. The reference r fernando was not used to int erpret this result as normal/abnormal . [facility] HospitalKmpfxemLVHNHYOUFJ7148-80-34 08:31:00 Test Item Value Reference Range Interpretation Comments Monocytes # (test code 0.4 See_Comment [Aut omated message] The = Monocytes #) system which generated this result tra nsmitted reference range : <=0.8. The reference r fernando was not used to int erpret this result as normal/abnormal . [facility]2018-06-17 06:00:00 Test Item Value Reference Range Interpretation Comments Calcium Lvl (test code = Calcium Lvl) 8.8 8.5-10.5 [facility]2018-06-17 06:00:00 Test Item Value Reference Range Interpretation Comments Chloride Lvl (test code = Chloride Lvl) 84 95-109 [facility]2018-06-17 06:00:00 Test Item Value Reference Range Interpretation Comments AGAP (test code = AGAP) 12.4 10.0-20.0 [facility]2018-06-17 06:00:00 Test Item Value Reference Range Interpretation Comments CO2 (test code = CO2) 37 24-32 [facility]2018-06-17 06:00:00 Test Item Value Reference Range Interpretation Comments eGFR (test code = eGFR) 88 [facility]2018-06-17 06:00:00 Test Item Value Reference Range Interpretation Comments Glucose Lvl (test code = Glucose Lvl) 146 70-99 [facility]2018-06-17 06:00:00 Test Item Value Reference Range Interpretation Comments BUN (test code = BUN) 13 7-22 [place] [id number] 06:00:00 Test Item Value Reference Range Interpretation Comments Creatinine Lvl (test code = Creatinine 0.57 0.50-1.40 Lvl) [facility] [id number] 06:00:00 Test Item Value Reference Range Interpretation Comments Sodium Lvl (test code = Sodium Lvl) 130 135-145 [facility] [id number] 06:00:00 Test Item Value Reference Range Interpretation Comments Potassium Lvl (test code = Potassium 3.4 3.5-5.1 Lvl) [facility] [id number] 06:00:00 Test Item Value Reference Range Interpretation Comments Magnesium Lvl (test code = Magnesium 2.0 1.8-2.4 Lvl) [facility] [id number] 06:00:00 Test Item Value Reference Range Interpretation Comments BNP (test code = BNP) 188 [facility] [id number] 06:00:00 Test Item Value Reference Range Interpretation Comments Phosphorus (test code = Phosphorus) 2.7 2.5-4.5 [facility] [id number] 15:56:00 Test Item Value Reference Range Interpretation Comments U Osmolality (test code = U Osmolality) 311 300-800 [facility] [id number] 15:56:00 Test Item Value Reference Range Interpretation Comments U Creatinine (test code = U Creatinine) 10.70 [facility] [id number] 15:56:00 Test Item Value Reference Range Interpretation Comments U Sodium (test code = U Sodium) 84 [facility] [id number] 15:56:00 Test Item Value Reference Range Interpretation Comments U Potassium (test code = U Potassium) 42.2 [facility] [id number] 15:56:00 Test Item Value Reference Range Interpretation Comments U Chloride (test code = U Chloride) 118 [facility] [id number] 05:11:00 Test Item Value Reference Range Interpretation Comments Osmolality (test code = Osmolality) 269 280-300 [facility] [id number] 05:11:00 Test Item Value Reference Range Interpretation Comments Magnesium Lvl (test code = Magnesium 1.6 1.8-2.4 Lvl) [facility] HospitalHaoxiangni [employer] [id number] 05:11:00 Test Item Value Reference Range Interpretation Comments Phosphorus (test code = Phosphorus) 2.3 2.5-4.5 [facility] HospitalDaerlxqBFRACQPBGG1520-79-27 05:11:00 Test Item Value Reference Range Interpretation Comments Segs-Bands # (test code = Segs-Bands #) 6.2 1.5-8.1 [facility] HospitalRfhquhbNIAEFKVUGC2751-40-81 05:11:00 Test Item Value Reference Range Interpretation Comments Lymphocytes # (test code = Lymphocytes 1.1 1.0-5.5 #) [facility] HospitalZwbkrpzGPLXBABZUG7381-95-91 05:11:00 Test Item Value Reference Range Interpretation Comments Basophils (test code = 0.2 See_Comment [Aut omated message] The Basophils) system which ge nerated this result tra nsmitted reference range : <=1.0. The reference r fernando was not used to int erpret this result as normal/abnormal . [facility] HospitalAzekwuwBFVUBSRXGJ1103-37-35 05:11:00 Test Item Value Reference Range Interpretation Comments Eosinophils (test code = 2.3 See_Comment [A utomated message] The Eosinophils) system which ge nerated this result tra nsmitted reference range : <=4.0. The reference r fernando was not used to int erpret this result as normal/abnormal . [facility] HospitalDwstpnjRNVQHEWJBV6010-26-82 05:11:00 Test Item Value Reference Range Interpretation Comments Monocytes (test code = Monocytes) 8.1 2.0-12.0 [facility] HospitalUzeyiohCPEWBOQJZF0889-15-76 05:11:00 Test Item Value Reference Range Interpretation Comments Lymphocytes (test code = Lymphocytes) 13.8 20.0-40.0 [facility] HospitalMyvaozcMWKOPUMYCZ2519-56-98 05:11:00 Test Item Value Reference Range Interpretation Comments Segs (test code = Segs) 75.6 45.0-75.0 [facility] HospitalUebseoeADUYCDIYBD5130-15-83 05:11:00 Test Item Value Reference Range Interpretation Comments Eosinophils # (test code 0.2 See_Comment [A utomated message] The = Eosinophils #) system whic h generated this result tra nsmitted reference range : <=0.5. The reference r fernando was not used to int erpret this result as normal/abnormal . [facility] HospitalOzvxblpYVBFZMANEO0444-68-36 05:11:00 Test Item Value Reference Range Interpretation Comments Monocytes # (test code 0.7 See_Comment [Aut omated message] The = Monocytes #) system which generated this result tra nsmitted reference range : <=0.8. The reference r fernando was not used to int erpret this result as normal/abnormal . [facility] HospitalUmonopgDNWBZTEJLF5267-34-50 05:11:00 Test Item Value Reference Range Interpretation Comments Platelet (test code = Platelet) 185 133-450 [facility] HospitalVezuzacRUCBGIGLEM6901-06-88 05:11:00 Test Item Value Reference Range Interpretation Comments RDW (test code = RDW) 15.0 11.5-14.5 [facility] HospitalThqhmeyNRHIOWFMTX2471-35-31 05:11:00 Test Item Value Reference Range Interpretation Comments MCHC (test code = MCHC) 34.1 32.0-36.0 [facility] HospitalJznjlslELEDEVWQRP7074-15-13 05:11:00 Test Item Value Reference Range Interpretation Comments MPV (test code = MPV) 8.2 7.4-10.4 [facility] HospitalNukszooPQVBQWJJXX4983-07-31 05:11:00 Test Item Value Reference Range Interpretation Comments MCV (test code = MCV) 81.1 80.0-98.0 [facility] HospitalKvdrtodDCKNCVQCZX3817-22-33 05:11:00 Test Item Value Reference Range Interpretation Comments MCH (test code = MCH) 27.7 pg 27.0-31.0 [facility] HospitalRloppmuMQZIGGKLHV3347-66-72 05:11:00 Test Item Value Reference Range Interpretation Comments RBC (test code = RBC) 3.46 4.20-5.40 [facility] HospitalYgktkgnTWMVFEHGRN9402-91-49 05:11:00 Test Item Value Reference Range Interpretation Comments Hct (test code = Hct) 28.1 36.0-48.0 [facility] HospitalLfdcnntJCZARHEEKB3911-85-33 05:11:00 Test Item Value Reference Range Interpretation Comments Hgb (test code = Hgb) 9.6 12.0-16.0 [facility] HospitalPgebfytTQGMDQCXGH0347-43-43 05:11:00 Test Item Value Reference Range Interpretation Comments WBC (test code = WBC) 8.2 3.7-10.4 [facility] HospitalPARATHYROID TRLQOYY2757-88-60 05:11:00 Test Item Value Reference Range Interpretation Comments Ca Ion WB (test code = Ca Ion WB) 1.05 1.05-1.25 [facility] ZUVFZRR9030-48-38 05:11:00 Test Item Value Reference Range Interpretation Comments Ca Norm WB (test code = Ca Norm WB) 1.12 1.05-1.25 [facility] HospitalCzgovfdXVSCUZVJDB5006-86-86 05:37:00 Test Item Value Reference Range Interpretation Comments Segs (test code = Segs) 84.3 45.0-75.0 [facility] HospitalErwbiqpABMXMLGJMJ7859-25-67 05:37:00 Test Item Value Reference Range Interpretation Comments Lymphocytes (test code = Lymphocytes) 7.4 20.0-40.0 [facility] HospitalFtermnlNZTVUJCOWX8843-15-16 05:37:00 Test Item Value Reference Range Interpretation Comments Eosinophils # (test code 0.1 See_Comment [A utomated message] The = Eosinophils #) system whic h generated this result tra nsmitted reference range : <=0.5. The reference r fernando was not used to int erpret this result as normal/abnormal . [facility] HospitalScxjtmhNYOIJKIXAJ6295-14-80 05:37:00 Test Item Value Reference Range Interpretation Comments Lymphocytes # (test code = Lymphocytes 0.6 1.0-5.5 #) [facility] HospitalOvmvzymNULBRRHDVV2965-98-36 05:37:00 Test Item Value Reference Range Interpretation Comments Monocytes # (test code 0.5 See_Comment [Aut omated message] The = Monocytes #) system which generated this result tra nsmitted reference range : <=0.8. The reference r fernando was not used to int erpret this result as normal/abnormal . [facility] HospitalNitxsuqIFTYWCVBWM3291-67-45 05:37:00 Test Item Value Reference Range Interpretation Comments Monocytes (test code = Monocytes) 6.7 2.0-12.0 [facility] HospitalZglgdovYZHKBDGCAK0179-64-33 05:37:00 Test Item Value Reference Range Interpretation Comments Eosinophils (test code = 1.4 See_Comment [A utomated message] The Eosinophils) system which ge nerated this result tra nsmitted reference range : <=4.0. The reference r fernando was not used to int erpret this result as normal/abnormal . [facility] HospitalHhvzdolCIQXKFFWCV2596-15-40 05:37:00 Test Item Value Reference Range Interpretation Comments Basophils (test code = 0.2 See_Comment [Aut omated message] The Basophils) system which ge nerated this result tra nsmitted reference range : <=1.0. The reference r fernando was not used to int erpret this result as normal/abnormal . [facility] HospitalGdusqszYWOPULUSDB3293-57-23 05:37:00 Test Item Value Reference Range Interpretation Comments Segs-Bands # (test code = Segs-Bands #) 6.3 1.5-8.1 [facility] HospitalJdnivktLVPXTAPQNI0789-11-85 05:37:00 Test Item Value Reference Range Interpretation Comments MCV (test code = MCV) 82.1 80.0-98.0 [facility] HospitalFlusxyaOCQEPWBFHX4893-99-96 05:37:00 Test Item Value Reference Range Interpretation Comments Hct (test code = Hct) 27.1 36.0-48.0 [facility] HospitalHxnskngRHOSVDPHPK6370-55-62 05:37:00 Test Item Value Reference Range Interpretation Comments MCHC (test code = MCHC) 34.5 32.0-36.0 [facility] HospitalHmtdyyoWLXSUHNGKB4237-25-24 05:37:00 Test Item Value Reference Range Interpretation Comments MCH (test code = MCH) 28.3 pg 27.0-31.0 [facility] HospitalIdirkdeOCMWTHOSWD2457-18-41 05:37:00 Test Item Value Reference Range Interpretation Comments RBC (test code = RBC) 3.29 4.20-5.40 [facility] HospitalWeufjlyPPCUVSBZBX2396-18-11 05:37:00 Test Item Value Reference Range Interpretation Comments WBC (test code = WBC) 7.5 3.7-10.4 [facility] HospitalAbswcekGMLXBMIVWC4975-84-19 05:37:00 Test Item Value Reference Range Interpretation Comments RDW (test code = RDW) 15.1 11.5-14.5 [facility] HospitalQmtbpkwOGLUVOZLKR4248-90-54 05:37:00 Test Item Value Reference Range Interpretation Comments Platelet (test code = Platelet) 191 133-450 [facility] HospitalChodrhaYMGQQDEYAU2736-20-19 05:37:00 Test Item Value Reference Range Interpretation Comments MPV (test code = MPV) 7.8 7.4-10.4 [facility] HospitalMeafbseRSGXNYDAIP4060-06-15 05:37:00 Test Item Value Reference Range Interpretation Comments Hgb (test code = Hgb) 9.3 12.0-16.0 [facility]2018-06-15 05:37:00 Test Item Value Reference Range Interpretation Comments Ca Norm WB (test code = Ca Norm WB) 1.08 1.05-1.25 [facility]2018-06-15 05:37:00 Test Item Value Reference Range Interpretation Comments Ca Ion WB (test code = Ca Ion WB) 1.04 1.05-1.25 [facility]2018-06-14 11:46:00 Test Item Value Reference Range Interpretation Comments A/G Ratio (test code = A/G Ratio) 0.6 1 0.7-1.6 [facility]2018-06-14 11:46:00 Test Item Value Reference Range Interpretation Comments Globulin (test code = Globulin) 3.6 2.7-4.2 [facility]2018-06-14 11:46:00 Test Item Value Reference Range Interpretation Comments Bili Indirect (test 0.4 See_Comment [Automa timur message] The code = Bili Indirect) system which generated this result tra nsmitted reference range : <=1.0. The reference r fernando was not used to int erpret this result as normal/abnormal . [facility]2018-06-14 11:46:00 Test Item Value Reference Range Interpretation Comments Bili Direct (test code 0.7 See_Comment [Aut omated message] The = Bili Direct) system which generated this result tra nsmitted reference range : <=0.3. The reference r fernando was not used to int erpret this result as jasmyne l/abnormal. [facility]2018-06-14 11:46:00 Test Item Value Reference Range Interpretation Comments Alk Phos (test code = Alk Phos) 276 39-136 [facility]2018-06-14 11:46:00 Test Item Value Reference Range Interpretation Comments AST (test code = AST) 44 See_Comment [Auto mated message] The system which ge nerated this result transmit timur reference range : <=37. The reference range was not used to interpr et this result as jasmyne l/abnormal. [facility]2018-06-14 11:46:00 Test Item Value Reference Range Interpretation Comments ALT (test code = ALT) 54 See_Comment [Auto mated message] The system which ge nerated this result transmit timur reference range : <=65. The reference range was not used to interpr et this result as jasmyne l/abnormal. [facility] [id number] 11:46:00 Test Item Value Reference Range Interpretation Comments Albumin Lvl (test code = Albumin Lvl) 2.3 3.5-5.0 [facility]2018-06-14 11:46:00 Test Item Value Reference Range Interpretation Comments Total Protein (test code = Total 5.9 6.4-8.4 Protein) [facility] [id number] 11:46:00 Test Item Value Reference Range Interpretation Comments Bili Total (test code = Bili Total) 1.1 0.2-1.3 [place] [id number] 11:46:00 Test Item Value Reference Range Interpretation Comments Aldosterone (test code = no gt See_Comment [A utomated message] The Aldosterone) system which ge nerated this result tra nsmitted reference range : <=30.0. The reference r fernando was not used to int erpret this result as normal/abnormal . [place] [id number] 11:46:00 Test Item Value Reference Range Interpretation Comments Renin Activity (test code = Renin 0.527 0.167-5.380 Activity) [facility] AND [id number] 11:46:00 Test Item Value Reference Range Interpretation Comments UA Urobilinogen (test code = UA <=1.0 mg/dL 0.1-1.0 Urobilinogen) [facility] AND [id number] 11:46:00 Test Item Value Reference Range Interpretation Comments UA Mucus (test code = UA Mucus) Few /LPF [facility] AND [id number] 11:46:00 Test Item Value Reference Range Interpretation Comments UA Sq Epi (test code = UA Sq Occasional /LPF Epi) [facility] AND [id number] 11:46:00 Test Item Value Reference Range Interpretation Comments UA Nitrite (test code Negative (02/22/18 6:46 = UA Nitrite) AM) [facility] AND [id number] 11:46:00 Test Item Value Reference Range Interpretation Comments UA Hyal Cast (test 1 See_Comment [Automat ed message] The code = UA Hyal Cast) system which generated this result transmit timur reference range : <=2. The reference range was not used to interpr et this result as jasmyne l/abnormal. [facility] AND [id number] 11:46:00 Test Item Value Reference Range Interpretation Comments UA RBC (test code = 1 See_Comment [Automa timur message] The UA RBC) system which ge nerated this result transmit timur reference range : <=2. The reference range was not used to interpr et this result as jasmyne l/abnormal. [facility] AND [id number] 11:46:00 Test Item Value Reference Range Interpretation Comments UA Leuk Est (test Negative (02/22/18 6:46 code = UA Leuk Est) AM) [facility] AND [id number] 11:46:00 Test Item Value Reference Range Interpretation Comments UA WBC (test code = 3 See_Comment [Automa timur message] The UA WBC) system which ge nerated this result transmit timur reference range : <=5. The reference range was not used to interpr et this result as jasmyne l/abnormal. [facility] AND [id number] 11:46:00 Test Item Value Reference Range Interpretation Comments UA Turbidity (test code Slight *ABN*(02/22/18 = UA Turbidity) 6:46 AM) [facility] AND [id number] 11:46:00 Test Item Value Reference Range Interpretation Comments UA Color (test code = Yellow *NA*(02/22/18 UA Color) 6:46 AM) [facility] AND [id number] 11:46:00 Test Item Value Reference Range Interpretation Comments UA pH (test code = UA pH) 6.0 1 5.0-8.0 [facility] AND [id number] 11:46:00 Test Item Value Reference Range Interpretation Comments UA Ketones (test code = UA Negative mg/dL Ketones) [facility] AND [id number] 11:46:00 Test Item Value Reference Range Interpretation Comments UA Protein (test code = UA Protein) 20 mg/dL [facility] AND [id number] 11:46:00 Test Item Value Reference Range Interpretation Comments UA Spec Grav (test code = UA Spec 1.011 1 Grav) [facility] AND [id number] 11:46:00 Test Item Value Reference Range Interpretation Comments UA Glucose (test code = UA Glucose) 70 mg/dL [facility] AND [id number] 11:46:00 Test Item Value Reference Range Interpretation Comments UA Bili (test code = Negative *NA*(02/22/18 UA Bili) 6:46 AM) [facility] AND [id number] 11:46:00 Test Item Value Reference Range Interpretation Comments UA Blood (test code = Negative (02/22/18 6:46 UA Blood) AM) [facility]2018-06-14 11:46:00 Test Item Value Reference Range Interpretation Comments U Creatinine (test code = U Creatinine) 22.10 [facility]2018-06-14 11:46:00 Test Item Value Reference Range Interpretation Comments U Chloride (test code = U Chloride) 155 [facility]2018-06-14 11:46:00 Test Item Value Reference Range Interpretation Comments U Potassium (test code = U Potassium) 61.1 [facility]2018-06-14 11:46:00 Test Item Value Reference Range Interpretation Comments U Sodium (test code = U Sodium) 98 [facility]2018-06-14 04:44:00 Test Item Value Reference Range Interpretation Comments Magnesium Lvl (test code = Magnesium 2.4 1.8-2.4 Lvl) [facility]2018-06-14 04:44:00 Test Item Value Reference Range Interpretation Comments Phosphorus (test code = Phosphorus) 2.6 2.5-4.5 [facility] [id number] 04:44:00 Test Item Value Reference Range Interpretation Comments Ca Ion WB (test code = Ca Ion WB) 1.06 1.05-1.25 [facility]2018-06-14 04:44:00 Test Item Value Reference Range Interpretation Comments Ca Norm WB (test code = Ca Norm WB) 1.09 1.05-1.25 [facility]2018-06-13 22:33:00 Test Item Value Reference Range Interpretation Comments Lactic Acid Lvl (test code = Lactic 1.4 0.5-2.2 Acid Lvl) [facility]2018-06-13 20:03:00 Test Item Value Reference Range Interpretation Comments U Osmolality (test code = U Osmolality) 360 300-800 [facility]2018-06-13 20:03:00 Test Item Value Reference Range Interpretation Comments U Sodium (test code = U Sodium) 88 [facility]2018-06-13 15:44:00 Test Item Value Reference Range Interpretation Comments Albumin Lvl (test code = Albumin Lvl) 2.6 3.5-5.0 [facility]2018-06-13 15:44:00 Test Item Value Reference Range Interpretation Comments Total Protein (test code = Total 6.7 6.4-8.4 Protein) [facility]2018-06-13 15:44:00 Test Item Value Reference Range Interpretation Comments B/C Ratio (test code = B/C Ratio) 12 1 6-25 [facility]2018-06-13 15:44:00 Test Item Value Reference Range Interpretation Comments ALT (test code = ALT) 67 See_Comment [Auto mated message] The system which ge nerated this result transmit timur reference range : <=65. The reference range was not used to interpr et this result as jasmyne l/abnormal. [facility]2018-06-13 15:44:00 Test Item Value Reference Range Interpretation Comments Bili Total (test code = Bili Total) 1.2 0.2-1.3 [facility]2018-06-13 15:44:00 Test Item Value Reference Range Interpretation Comments AST (test code = AST) 77 See_Comment [Auto mated message] The system which ge nerated this result transmit timur reference range : <=37. The reference range was not used to interpr et this result as jasmyne l/abnormal. [facility]2018-06-13 15:44:00 Test Item Value Reference Range Interpretation Comments A/G Ratio (test code = A/G Ratio) 0.6 1 0.7-1.6 [facility]2018-06-13 15:44:00 Test Item Value Reference Range Interpretation Comments Alk Phos (test code = Alk Phos) 269 39-136 [facility]2018-06-13 15:44:00 Test Item Value Reference Range Interpretation Comments Globulin (test code = Globulin) 4.1 2.7-4.2 [facility] [employer] [id number] 15:44:00 Test Item Value Reference Range Interpretation Comments Osmolality (test code = Osmolality) 270 280-300 [facility] [id number] 08:30:00 Test Item Value Reference Range Interpretation Comments Hgb A1C (test code = Hgb A1C) 6.5 [facility] CenterPergunterCARPelican Harbour SeafoodAC [id number] 06:01:00 Test Item Value Reference Range Interpretation Comments proBNP (test code = 4235 See_Comment [Automa timur message] The proBNP) system which ge nerated this result tra nsmitted reference range : <=450. The reference r fernando was not used to int erpret this result as jasmyne l/abnormal. [facility] CenterFastCustomer [id number] 06:01:00 Test Item Value Reference Range Interpretation Comments BNP (test code = BNP) 345 [facility] [employer] [id number] 06:01:00 Test Item Value Reference Range Interpretation Comments Lactic Acid Lvl (test code = Lactic 1.7 0.5-2.2 Acid Lvl) [facility] CenterIlink Systems [id number] 06:01:00 Test Item Value Reference Range Interpretation Comments Procalcitonin Lvl (test 0.41 See_Comment [Au tomated message] code = Procalcitonin Lvl) Th e system which generated this result transmitted ref erence range: <=0.10. The reference range was not used to interpr et this result as normal/abnormal . [facility] [employer] [id number] 11:57:00 Test Item Value Reference Range Interpretation Comments Bili Indirect (test 0.4 See_Comment [Automa timur message] The code = Bili Indirect) system which generated this result tra nsmitted reference range : <=1.0. The reference r fernando was not used to int erpret this result as normal/abnormal . [facility] [employer] [id number] 11:57:00 Test Item Value Reference Range Interpretation Comments Bili Total (test code = Bili Total) 0.7 0.2-1.3 [facility] [employer] [id number] 11:57:00 Test Item Value Reference Range Interpretation Comments Bili Direct (test code 0.3 See_Comment [Aut omated message] The = Bili Direct) system which generated this result tra nsmitted reference range : <=0.3. The reference r fernando was not used to int erpret this result as jasmyne l/abnormal. [facility]2018-06-12 11:57:00 Test Item Value Reference Range Interpretation Comments AST (test code = AST) 87 See_Comment [Auto mated message] The system which ge nerated this result transmit timur reference range : <=37. The reference range was not used to interpr et this result as jasmyne l/abnormal. [place] [id number] 11:57:00 Test Item Value Reference Range Interpretation Comments ALT (test code = ALT) 56 See_Comment [Auto mated message] The system which ge nerated this result transmit timur reference range : <=65. The reference range was not used to interpr et this result as jasmyne l/abnormal. [place] [id number] 11:57:00 Test Item Value Reference Range Interpretation Comments Alk Phos (test code = Alk Phos) 162 39-136 [facility]2018-06-12 11:57:00 Test Item Value Reference Range Interpretation Comments Albumin Lvl (test code = Albumin Lvl) 2.5 3.5-5.0 [place] [id number] 11:57:00 Test Item Value Reference Range Interpretation Comments Total Protein (test code = Total 6.0 6.4-8.4 Protein) [facility]2018-06-12 11:57:00 Test Item Value Reference Range Interpretation Comments Globulin (test code = Globulin) 3.5 2.7-4.2 [place] [id number] 11:57:00 Test Item Value Reference Range Interpretation Comments A/G Ratio (test code = A/G Ratio) 0.7 1 0.7-1.6 [place] [id number] 11:57:00 Test Item Value Reference Range Interpretation Comments Procalcitonin Lvl (test 0.35 See_Comment [Au tomated message] code = Procalcitonin Lvl) Th e system which generated this result transmitted ref erence range: <=0.10. The reference range was not used to interpr et this result as normal/abnormal . [facility] [id number] 17:56:00 Test Item Value Reference Range Interpretation Comments MRSA by PCR (test Negative (02/19/18 12:56 code = MRSA by PCR) PM) [facility] AND [id number] 11:34:00 Test Item Value Reference Range Interpretation Comments UA Leuk Est (test Moderate *ABN*(02/19/18 code = UA Leuk Est) 6:34 AM) [facility] AND [id number] 11:34:00 Test Item Value Reference Range Interpretation Comments UA Urobilinogen (test code = UA 0.2 0.1-1.0 Urobilinogen) [facility] AND [id number] 11:34:00 Test Item Value Reference Range Interpretation Comments UA Nitrite (test code Positive *ABN*(02/19/18 = UA Nitrite) 6:34 AM) [facility] AND [id number] 11:34:00 Test Item Value Reference Range Interpretation Comments UA pH (test code = UA pH) 8.5 1 5.0-8.0 [facility] AND [id number] 11:34:00 Test Item Value Reference Range Interpretation Comments UA Protein (test code Negative (02/19/18 6:34 = UA Protein) AM) [facility] AND [id number] 11:34:00 Test Item Value Reference Range Interpretation Comments UA Glucose (test code Negative (02/19/18 6:34 = UA Glucose) AM) [facility] AND [id number] 11:34:00 Test Item Value Reference Range Interpretation Comments UA Blood (test code = Negative (02/19/18 6:34 UA Blood) AM) [facility] AND [id number] 11:34:00 Test Item Value Reference Range Interpretation Comments UA Ketones (test code Negative *NA*(02/19/18 = UA Ketones) 6:34 AM) [facility] AND [id number] 11:34:00 Test Item Value Reference Range Interpretation Comments UA Bili (test code = Negative *NA*(02/19/18 UA Bili) 6:34 AM) [facility] AND [id number] 11:34:00 Test Item Value Reference Range Interpretation Comments UA Color (test code = Yellow *NA*(02/19/18 UA Color) 6:34 AM) [facility] [id number] 11:34:00 Test Item Value Reference Range Interpretation Comments UA Spec Grav (test code = UA Spec 1.010 1 Grav) [facility] [id number] 11:34:00 Test Item Value Reference Range Interpretation Comments UA Turbidity (test code = Clear (02/19/18 6:34 UA Turbidity) AM) [facility] AND [id number] 11:34:00 Test Item Value Reference Range Interpretation Comments UA Amorph Aliya (test code = Occasional /HPF UA Amorph Aliya) [facility] AND [id number] 11:34:00 Test Item Value Reference Range Interpretation Comments UA Sq Epi (test code = UA Sq Occasional /LPF Epi) [facility] [id number] 11:34:00 Test Item Value Reference Range Interpretation Comments UA WBC (test code = 28 See_Comment [Automa timur message] The UA WBC) system which ge nerated this result transmit timur reference range : <=5. The reference range was not used to interpr et this result as jasmyne l/abnormal. [facility] AND [id number] 11:34:00 Test Item Value Reference Range Interpretation Comments UA RBC (test code = 8 See_Comment [Automa timur message] The UA RBC) system which ge nerated this result transmit timur reference range : <=2. The reference range was not used to interpr et this result as jasmyne l/abnormal. [facility] AND [id number] 11:34:00 Test Item Value Reference Range Interpretation Comments UA Mucus (test code = UA Mucus) Moderate /LPF [facility] [id number] 10:49:00 Test Item Value Reference Range Interpretation Comments Troponin-T (test code no gt See_Comment [Auto mated message] The = Troponin-T) system which g enerated this result transmit timur reference range : <=0.100. The reference r fernando was not used to interpr et this result as jasmyne l/abnormal. [facility] [id number] 10:49:00 Test Item Value Reference Range Interpretation Comments Plav Effect Plt (test code = Plav 281 Effect Plt) [facility] [id number] 10:49:00 Test Item Value Reference Range Interpretation Comments ASA Effect Plt (test code = ASA Effect 565 Plt) [facility] [id number] 10:06:00 Test Item Value Reference Range Interpretation Comments Troponin-I (test code 0.04 See_Comment [Auto mated message] The = Troponin-I) system which g enerated this result transmit timur reference range : <=0.40. The reference r fernando was not used to interpr et this result as jasmyne l/abnormal. [facility] CenterNeedl [id number] 09:31:00 Test Item Value Reference Range Interpretation Comments FFP product (test code Product available = FFP product) (02/19/18 4:31 AM) [facility] CenterPergunterCHEM [id number] 08:36:00 Test Item Value Reference Range Interpretation Comments Lactic Acid Lvl (test code = Lactic 1.7 0.5-2.2 Acid Lvl) [facility] CentercoComment [facility] [id number] 08:31:00 Test Item Value Reference Range Interpretation Comments Antibody Scrn (test Negative (02/19/18 3:31 code = Antibody Scrn) AM) [facility] [employer] [id number] 08:31:00 Test Item Value Reference Range Interpretation Comments ABO/Rh (test code = ABO/Rh) A POS [facility] H[id number] 08:31:00 Test Item Value Reference Range Interpretation Comments PTT (test code = PTT) 51.4 s 22.9-35.8 [facility] [id number] 08:31:00 Test Item Value Reference Range Interpretation Comments INR (test code = INR) 1.04 1 0.85-1.17 [facility] [id number] 08:31:00 Test Item Value Reference Range Interpretation Comments PT (test code = PT) 13.6 s 12.0-14.7 [facility] H[id number] 08:31:00 Test Item Value Reference Range Interpretation Comments K-time Rapid (test code = K-time 0.8 min 0.6-2.3 Rapid) [facility] [id number] 08:31:00 Test Item Value Reference Range Interpretation Comments R-time Rapid (test code = R-time 0.6 min 0.4-0.7 Rapid) [facility]YmyqgrdBNEOUKRYBT0933-00-21 08:31:00 Test Item Value Reference Range Interpretation Comments Split Point Rapid (test code = Split 0.5 min Point Rapid) [facility] [id number] 08:31:00 Test Item Value Reference Range Interpretation Comments ACT (TEG) Rapid (test code = ACT (TEG) 105 s 86-118 Rapid) [facility] [id number] 08:31:00 Test Item Value Reference Range Interpretation Comments G-value Rapid (test code = G-value 17.0 5.0-11.6 Rapid) [facility] [id number] 08:31:00 Test Item Value Reference Range Interpretation Comments Estimated % Lysis Rapid 1.2 See_Comment [Au tomated message] The (test code = Estimated syste m which generated % Lysis Rapid) this result t ransmitted reference range : <=7.5. The reference r fernando was not used to int erpret this result as normal/abnormal . [facility] H[id number] 08:31:00 Test Item Value Reference Range Interpretation Comments Angle Rapid (test code = Angle 81 degrees 64-80 Rapid) [facility] [id number] 08:31:00 Test Item Value Reference Range Interpretation Comments Max Amplitude Rapid (test code = Max 77 mm 52-71 Amplitude Rapid) [id number] 13:38:00 Test Item Value Reference Range Interpretation Comments Potassium Lvl (test code = Potassium 3.4 3.5-5.1 Lvl) [facility] [id number] 10:51:00 Test Item Value Reference Range Interpretation Comments Calcium Lvl (test code = Calcium Lvl) 8.7 8.5-10.5 [facility]2018-06-04 10:51:00 Test Item Value Reference Range Interpretation Comments AGAP (test code = AGAP) 14.9 10.0-20.0 [facility]2018-06-04 10:51:00 Test Item Value Reference Range Interpretation Comments Glucose Lvl (test code = Glucose Lvl) 110 70-99 [facility]2018-06-04 10:51:00 Test Item Value Reference Range Interpretation Comments CO2 (test code = CO2) - [facility]2018-06-04 10:51:00 Test Item Value Reference Range Interpretation Comments Creatinine Lvl (test code = Creatinine 0.62 0.50-1.40 Lvl) [facility]2018-06-04 10:51:00 Test Item Value Reference Range Interpretation Comments BUN (test code = BUN) 6 7- [facility]2018-06-04 10:51:00 Test Item Value Reference Range Interpretation Comments Sodium Lvl (test code = Sodium Lvl) 140 135-145 [facility]2018-06-04 10:51:00 Test Item Value Reference Range Interpretation Comments Potassium Lvl (test code = Potassium 2.9 3.5-5.1 Lvl) [facility]2018-06-04 10:51:00 Test Item Value Reference Range Interpretation Comments Chloride Lvl (test code = Chloride Lvl) 101 95-109 [facility]2018-06-04 10:51:00 Test Item Value Reference Range Interpretation Comments eGFR (test code = eGFR) 85 [facility]EbxgjhnBBRXXUYNJNOW1706-24-23 05:33:00 Test Item Value Reference Range Interpretation Comments Sodium Lvl (test code = Sodium Lvl) 140 135-145 [facility] Center[id number] 05:33:00 Test Item Value Reference Range Interpretation Comments Potassium Lvl (test code = Potassium 4.1 3.5-5.1 Lvl) [facility] [id number] 18:24:00 Test Item Value Reference Range Interpretation Comments Sodium Lvl (test code = Sodium Lvl) 137 135-145 [facility]2018-06-01 05:20:00 Test Item Value Reference Range Interpretation Comments eGFR (test code = eGFR) 86 [facility]2018-06-01 05:20:00 Test Item Value Reference Range Interpretation Comments Chloride Lvl (test code = Chloride Lvl) 103 95-109 [facility]2018-06-01 05:20:00 Test Item Value Reference Range Interpretation Comments CO2 (test code = CO2) - [facility]2018-06-01 05:20:00 Test Item Value Reference Range Interpretation Comments AGAP (test code = AGAP) 15.0 10.0-20.0 [facility]2018-06-01 05:20:00 Test Item Value Reference Range Interpretation Comments Calcium Lvl (test code = Calcium Lvl) 8.7 8.5-10.5 [facility]2018-06-01 05:20:00 Test Item Value Reference Range Interpretation Comments BUN (test code = BUN) 8 7-22 [facility]2018-06-01 05:20:00 Test Item Value Reference Range Interpretation Comments Creatinine Lvl (test code = Creatinine 0.62 0.50-1.40 Lvl) [facility]2018-06-01 05:20:00 Test Item Value Reference Range Interpretation Comments Glucose Lvl (test code = Glucose Lvl) 169 70-99 [facility]nn[facility]xjNYPYUTWGKC6496-32-58 05:20:00 Test Item Value Reference Range Interpretation Comments Lymphocytes # (test code = Lymphocytes 1.6 1.0-5.5 #) [facility]VknblyzCZUEPCWSSN2850-71-89 05:20:00 Test Item Value Reference Range Interpretation Comments Segs-Bands # (test code = Segs-Bands #) 6.7 1.5-8.1 [facility] HospitalOdcmkamQAPYMSINKL3078-65-88 05:20:00 Test Item Value Reference Range Interpretation Comments Monocytes # (test code 0.8 See_Comment [Aut omated message] The = Monocytes #) system which generated this result tra nsmitted reference range : <=0.8. The reference r fernando was not used to int erpret this result as normal/abnormal . [facility] HospitalIufozizWOVBSZFKGG2134-35-39 05:20:00 Test Item Value Reference Range Interpretation Comments Eosinophils # (test code 0.1 See_Comment [A utomated message] The = Eosinophils #) system whic h generated this result tra nsmitted reference range : <=0.5. The reference r fernando was not used to int erpret this result as normal/abnormal . [facility] HospitalZivhdwnYONHFBCKAS3117-23-12 05:20:00 Test Item Value Reference Range Interpretation Comments Monocytes (test code = Monocytes) 8.3 2.0-12.0 [facility] HospitalMplzrnkCTZEKGXOGT8843-04-54 05:20:00 Test Item Value Reference Range Interpretation Comments Eosinophils (test code = 1.4 See_Comment [A utomated message] The Eosinophils) system which ge nerated this result tra nsmitted reference range : <=4.0. The reference r fernando was not used to int erpret this result as normal/abnormal . [facility] HospitalYevmfgeQNPQTHWGFZ9363-90-41 05:20:00 Test Item Value Reference Range Interpretation Comments Basophils (test code = 0.4 See_Comment [Aut omated message] The Basophils) system which ge nerated this result tra nsmitted reference range : <=1.0. The reference r fernando was not used to int erpret this result as normal/abnormal . [facility] HospitalMsjyklxARNARMCFIP6285-56-03 05:20:00 Test Item Value Reference Range Interpretation Comments Lymphocytes (test code = Lymphocytes) 17.5 20.0-40.0 [facility] HospitalXtcxfxdARGYQMMXVP0626-01-04 05:20:00 Test Item Value Reference Range Interpretation Comments Segs (test code = Segs) 72.4 45.0-75.0 [facility] HospitalGybvwdqIHTKZYDLKW4575-61-94 05:20:00 Test Item Value Reference Range Interpretation Comments MCV (test code = MCV) 83.0 80.0-98.0 [facility] HospitalHerquecTUPGYWLNOV5402-66-66 05:20:00 Test Item Value Reference Range Interpretation Comments MCH (test code = MCH) 28.3 pg 27.0-31.0 [facility] HospitalOaaizybKAKRRUFPVQ0928-16-75 05:20:00 Test Item Value Reference Range Interpretation Comments Hct (test code = Hct) 29.7 36.0-48.0 [facility] HospitalHiouwxwLETUIIXDFQ0667-77-49 05:20:00 Test Item Value Reference Range Interpretation Comments Platelet (test code = Platelet) 257 133-450 [facility] HospitalQiojrtfMLKFLVYUJC8368-19-26 05:20:00 Test Item Value Reference Range Interpretation Comments MPV (test code = MPV) 8.3 7.4-10.4 [facility] HospitalFlhurhgJWOOYQCSQB9456-93-67 05:20:00 Test Item Value Reference Range Interpretation Comments RDW (test code = RDW) 15.1 11.5-14.5 [facility] HospitalVtoilpuMADBPOPXJC1469-68-25 05:20:00 Test Item Value Reference Range Interpretation Comments MCHC (test code = MCHC) 34.1 32.0-36.0 [facility] HospitalUygjncfOBEMNUFMMI2490-48-00 05:20:00 Test Item Value Reference Range Interpretation Comments RBC (test code = RBC) 3.58 4.20-5.40 [facility] HospitalOktfnnxQSQQHIKSNJ7349-18-36 05:20:00 Test Item Value Reference Range Interpretation Comments Hgb (test code = Hgb) 10.1 12.0-16.0 [facility] HospitalSxbafsfVLSDVOTNBY6596-74-90 05:20:00 Test Item Value Reference Range Interpretation Comments WBC (test code = WBC) 9.3 3.7-10.4 [facility] HospitalDnyqfoeIMNOEISVBH3741-34-59 10:57:00 Test Item Value Reference Range Interpretation Comments PTT (test code = PTT) 48.4 s 22.9-35.8 [facility] HospitalUpseexeBOZTIESYGC5795-20-64 10:57:00 Test Item Value Reference Range Interpretation Comments INR (test code = INR) 1.17 1 0.85-1.17 [facility] HospitalVxqwcwnWWECGSFRKP3135-47-18 10:57:00 Test Item Value Reference Range Interpretation Comments PT (test code = PT) 15.0 s 12.0-14.7 [facility] HospitalFldcntxBSPZQJXZMU6235-13-64 10:57:00 Test Item Value Reference Range Interpretation Comments Ly30 (test code = 2.3 See_Comment [Automate d message] The Ly30) system which ge nerated this result transmit timur reference range : <=7.5. The reference range was not used to interpr et this result as jasmyne l/abnormal. [facility] HospitalOktyjvqTZTANTMTVH6228-88-05 10:57:00 Test Item Value Reference Range Interpretation Comments TEG Data (test code = See Note (02/08/18 5:57 TEG Data) AM) [facility] HospitalGzzroxcFGZCZDMTZE4102-11-55 10:57:00 Test Item Value Reference Range Interpretation Comments Coag Index (test code 4.0 1 See_Comment [Auto mated message] The = Coag Index) system which g enerated this result transmit timur reference range : <=3.0. The reference range was not used to interpr et this result as jasmyne l/abnormal. [facility] HospitalXfqjrszHVXEUCQRKN0347-67-42 10:57:00 Test Item Value Reference Range Interpretation Comments G-value (test code = G-value) 12.6 4.5-11.0 [facility] HospitalNgivznrLPKHPFQFKF4186-23-84 10:57:00 Test Item Value Reference Range Interpretation Comments Max Amp (test code = Max Amp) 71.6 mm 50.0-70.0 [facility] HospitalMydvxwzUCNTPOYPVR0344-29-49 10:57:00 Test Item Value Reference Range Interpretation Comments Angle (test code = Angle) 74.1 degrees 53.0-72.0 [facility] HospitalBuszwerDOMQDYUJKK8286-10-45 10:57:00 Test Item Value Reference Range Interpretation Comments K-time (test code = K-time) 1.1 min 1.0-3.0 [facility] HospitalYcfgvdbFXRIWUKVKA9888-31-07 10:57:00 Test Item Value Reference Range Interpretation Comments R-time (test code = R-time) 3.3 min 5.0-10.0 [facility] HospitalYipoddvFESPODMFTE3456-22-45 10:57:00 Test Item Value Reference Range Interpretation Comments TEG Interp (test Thrombelastograph results code = TEG show shortened value of R Interp) and increased values of both Angle Alpha and MA. These findings are suggestive of platelet and enzymatic hypercoagulation which may be seen in early phase of DIC. Monitor for DIC with DIC panel may be indicated. CPT:12213 [facility]2018-05-31 05:45:00 Test Item Value Reference Range Interpretation Comments Magnesium Lvl (test code = Magnesium 2.2 1.8-2.4 Lvl) [facility]2018-05-31 05:45:00 Test Item Value Reference Range Interpretation Comments Phosphorus (test code = Phosphorus) 2.1 2.5-4.5 [facility]peqphSWMENJJBYGEG7637-84-48 05:45:00 Test Item Value Reference Range Interpretation Comments AGAP (test code = AGAP) 13.5 10.0-20.0 [facility] CenterHqihajfBAXWBATATGQD4109-48-37 05:45:00 Test Item Value Reference Range Interpretation Comments BUN (test code = BUN) 13 7-22 [facility] CenterPcgzxerEXYOKIKKEZHX0079-99-11 05:45:00 Test Item Value Reference Range Interpretation Comments Creatinine Lvl (test code = Creatinine 0.73 0.50-1.40 Lvl) [facility] CenterIqbjiqvOWSARYIBFNRC2358-46-64 05:45:00 Test Item Value Reference Range Interpretation Comments Calcium Lvl (test code = Calcium Lvl) 8.7 8.5-10.5 [facility] CenterPisrqocYQRXMEGUPVUA3054-70-28 05:45:00 Test Item Value Reference Range Interpretation Comments Chloride Lvl (test code = Chloride Lvl) 105 95-109 [facility] CenterDupslkeKBFRWEOJWVTY8700-67-27 05:45:00 Test Item Value Reference Range Interpretation Comments CO2 (test code = CO2) 24 24-32 [facility] CenterTbmlxnsEKBBVBFCJDRK1425-61-31 05:45:00 Test Item Value Reference Range Interpretation Comments eGFR (test code = eGFR) 79 [facility] CenterVouibqdRGEYNBRWAWER6915-42-61 05:45:00 Test Item Value Reference Range Interpretation Comments Glucose Lvl (test code = Glucose Lvl) 139 70-99 [facility] HospitalWtvkwezDXXXYPFBQC1574-07-58 05:45:00 Test Item Value Reference Range Interpretation Comments WBC (test code = WBC) 8.7 3.7-10.4 [facility] HospitalKzrprmrKSPNTQUUST1650-83-18 05:45:00 Test Item Value Reference Range Interpretation Comments RDW (test code = RDW) 14.8 11.5-14.5 [facility] HospitalEleybdoPHMAJVVLWN4364-93-76 05:45:00 Test Item Value Reference Range Interpretation Comments MCHC (test code = MCHC) 33.8 32.0-36.0 [facility] HospitalXpspwttYMKOPGLNXD4439-30-36 05:45:00 Test Item Value Reference Range Interpretation Comments MCH (test code = MCH) 28.3 pg 27.0-31.0 [facility] HospitalOxlgtudOMEWDIDCDJ1613-33-12 05:45:00 Test Item Value Reference Range Interpretation Comments MPV (test code = MPV) 8.2 7.4-10.4 [facility] HospitalWimqptzXBEEYCBNHO1822-73-44 05:45:00 Test Item Value Reference Range Interpretation Comments Platelet (test code = Platelet) 228 133-450 [facility] HospitalTcvdfesTJNCVKHUYW2502-88-40 05:45:00 Test Item Value Reference Range Interpretation Comments Hgb (test code = Hgb) 9.5 12.0-16.0 [facility] HospitalVrqdqsmQSPOUVOHRW1396-07-82 05:45:00 Test Item Value Reference Range Interpretation Comments Hct (test code = Hct) 28.0 36.0-48.0 [facility] HospitalCgkokozGEWHRWFUGW0534-02-88 05:45:00 Test Item Value Reference Range Interpretation Comments MCV (test code = MCV) 83.8 80.0-98.0 [facility] HospitalHkyeaufADLJQIKRWF2421-00-17 05:45:00 Test Item Value Reference Range Interpretation Comments RBC (test code = RBC) 3.34 4.20-5.40 [facility] HospitalMbtiwqmUKUDNCVXSI7717-96-90 05:45:00 Test Item Value Reference Range Interpretation Comments Lymphocytes (test code = Lymphocytes) 16.6 20.0-40.0 [facility] HospitalOzayteyZGIZVMDTOR5251-97-32 05:45:00 Test Item Value Reference Range Interpretation Comments Segs (test code = Segs) 73.5 45.0-75.0 [facility] HospitalSesupylJHWWMSUSAD3887-94-92 05:45:00 Test Item Value Reference Range Interpretation Comments Monocytes # (test code 0.8 See_Comment [Aut omated message] The = Monocytes #) system which generated this result tra nsmitted reference range : <=0.8. The reference r fernando was not used to int erpret this result as normal/abnormal . [facility] HospitalPflryqwTLBDTBIBZB2405-34-83 05:45:00 Test Item Value Reference Range Interpretation Comments Segs-Bands # (test code = Segs-Bands #) 6.4 1.5-8.1 [facility] HospitalOdtcgalGURBIDRRSA2949-27-65 05:45:00 Test Item Value Reference Range Interpretation Comments Basophils (test code = 0.1 See_Comment [Aut omated message] The Basophils) system which ge nerated this result tra nsmitted reference range : <=1.0. The reference r fernando was not used to int erpret this result as normal/abnormal . [facility] HospitalDcyxnhdVSILPORKUI8139-58-05 05:45:00 Test Item Value Reference Range Interpretation Comments Eosinophils (test code = 0.4 See_Comment [A utomated message] The Eosinophils) system which ge nerated this result tra nsmitted reference range : <=4.0. The reference r fernando was not used to int erpret this result as normal/abnormal . [facility] HospitalAamgytjUKHWMKZQBJ1344-08-76 05:45:00 Test Item Value Reference Range Interpretation Comments Monocytes (test code = Monocytes) 9.4 2.0-12.0 [facility] HospitalEmfwngbBKEUTXZSGL8736-67-20 05:45:00 Test Item Value Reference Range Interpretation Comments Lymphocytes # (test code = Lymphocytes 1.4 1.0-5.5 #) [facility]2018-05-31 05:45:00 Test Item Value Reference Range Interpretation Comments Ca Norm WB (test code = Ca Norm WB) 1.15 1.05-1.25 [facility]2018-05-31 05:45:00 Test Item Value Reference Range Interpretation Comments Ca Ion WB (test code = Ca Ion WB) 1.12 1.05-1.25 [facility]2018-05-30 05:06:00 Test Item Value Reference Range Interpretation Comments Magnesium Lvl (test code = Magnesium 2.4 1.8-2.4 Lvl) [facility]2018-05-30 05:06:00 Test Item Value Reference Range Interpretation Comments Phosphorus (test code = Phosphorus) 2.6 2.5-4.5 [facility] HospitalMirqdshGUUCNEQDQV0941-45-72 05:06:00 Test Item Value Reference Range Interpretation Comments PTT (test code = PTT) 52.3 s 22.9-35.8 [facility] HospitalYhqkyicAYCVWUCXHV6492-66-23 05:06:00 Test Item Value Reference Range Interpretation Comments PT (test code = PT) 14.8 s 12.0-14.7 [facility] HospitalMgfpwggSBHJNSQKXL2746-56-64 05:06:00 Test Item Value Reference Range Interpretation Comments INR (test code = INR) 1.16 1 0.85-1.17 [facility] HospitalTzqlwftIJIRVVHLKJ0405-64-81 05:06:00 Test Item Value Reference Range Interpretation Comments Estimated % Lysis Rapid 2.0 See_Comment [Au tomated message] The (test code = Estimated syste m which generated % Lysis Rapid) this result t ransmitted reference range : <=7.5. The reference r fernando was not used to int erpret this result as normal/abnormal . [facility] HospitalZixvphjCHGXWTOPKK7219-59-00 05:06:00 Test Item Value Reference Range Interpretation Comments R-time Rapid (test code = R-time 0.8 min 0.4-0.7 Rapid) [facility] HospitalKlyajgrVNLZGBTDYI4229-44-76 05:06:00 Test Item Value Reference Range Interpretation Comments K-time Rapid (test code = K-time 0.8 min 0.6-2.3 Rapid) [facility] HospitalZywaxeiVKQQZZJDEJ7025-06-37 05:06:00 Test Item Value Reference Range Interpretation Comments Split Point Rapid (test code = Split 0.7 min Point Rapid) [facility] HospitalVhlusbmFCNHWIVRYR5407-90-22 05:06:00 Test Item Value Reference Range Interpretation Comments Angle Rapid (test code = Angle 80 degrees 64-80 Rapid) [facility] HospitalIvmtgtoTVUVYWUMEK9067-16-44 05:06:00 Test Item Value Reference Range Interpretation Comments Max Amplitude Rapid (test code = Max 76 mm 52-71 Amplitude Rapid) [facility] HospitalYzoqbeeMWGWBCZMQU5429-90-91 05:06:00 Test Item Value Reference Range Interpretation Comments ACT (TEG) Rapid (test code = ACT (TEG) 121 s 86-118 Rapid) [facility] HospitalSxfrodgWXMQWRFYSR6064-55-74 05:06:00 Test Item Value Reference Range Interpretation Comments G-value Rapid (test code = G-value 15.5 5.0-11.6 Rapid) [facility] HospitalWqqqmpiQOTPXIPUPP4422-34-07 05:06:00 Test Item Value Reference Range Interpretation Comments WBC (test code = WBC) 7.3 3.7-10.4 [facility] HospitalQokusnwCOMTECUYZA8717-28-33 05:06:00 Test Item Value Reference Range Interpretation Comments RBC (test code = RBC) 3.28 4.20-5.40 [facility] HospitalVnbvtuzTWDDXQWNGC4708-19-78 05:06:00 Test Item Value Reference Range Interpretation Comments MPV (test code = MPV) 8.0 7.4-10.4 [facility] HospitalLhygwdfCONGIJGQZL4410-84-21 05:06:00 Test Item Value Reference Range Interpretation Comments MCHC (test code = MCHC) 34.8 32.0-36.0 [facility] HospitalNicsoyqFHDBJUNDBJ4963-33-03 05:06:00 Test Item Value Reference Range Interpretation Comments RDW (test code = RDW) 14.6 11.5-14.5 [facility] HospitalObfcybvLSRFIWCDCN6969-89-89 05:06:00 Test Item Value Reference Range Interpretation Comments Platelet (test code = Platelet) 228 863-450 [facility] HospitalBicxfcpUJZJMJEQSD9664-08-98 05:06:00 Test Item Value Reference Range Interpretation Comments MCV (test code = MCV) 82.5 80.0-98.0 [facility] HospitalYlxdbhzHQMTYSRLLD0989-60-88 05:06:00 Test Item Value Reference Range Interpretation Comments MCH (test code = MCH) 28.7 pg 27.0-31.0 [facility] HospitalGrgiahwLRDMGFTDLK0821-33-59 05:06:00 Test Item Value Reference Range Interpretation Comments Hgb (test code = Hgb) 9.4 12.0-16.0 [facility] HospitalHczvjdvSNVTLDLKIB1670-53-69 05:06:00 Test Item Value Reference Range Interpretation Comments Hct (test code = Hct) 27.0 36.0-48.0 [facility] HospitalMchuiasJGCZQKQJMD3013-75-17 05:06:00 Test Item Value Reference Range Interpretation Comments Monocytes # (test code 0.9 See_Comment [Aut omated message] The = Monocytes #) system which generated this result tra nsmitted reference range : <=0.8. The reference r fernando was not used to int erpret this result as normal/abnormal . [facility] HospitalGiafmmpPEKLPBZLSC7738-59-84 05:06:00 Test Item Value Reference Range Interpretation Comments Eosinophils # (test code 0.1 See_Comment [A utomated message] The = Eosinophils #) system whic h generated this result tra nsmitted reference range : <=0.5. The reference r fernando was not used to int erpret this result as normal/abnormal . [facility] HospitalFynnjorAGJEZAGUCU1219-20-62 05:06:00 Test Item Value Reference Range Interpretation Comments Lymphocytes # (test code = Lymphocytes 1.6 1.0-5.5 #) [facility] HospitalPimjaimYWXVFKKPKU7924-47-48 05:06:00 Test Item Value Reference Range Interpretation Comments Segs-Bands # (test code = Segs-Bands #) 4.8 1.5-8.1 [facility] HospitalFqpukuiMYJPEPEMOS5729-25-27 05:06:00 Test Item Value Reference Range Interpretation Comments Basophils (test code = 0.1 See_Comment [Aut omated message] The Basophils) system which ge nerated this result tra nsmitted reference range : <=1.0. The reference r fernando was not used to int erpret this result as normal/abnormal . [facility] HospitalDbclobhZENRHJSZIY6247-02-43 05:06:00 Test Item Value Reference Range Interpretation Comments Monocytes (test code = Monocytes) 12.4 2.0-12.0 [facility] HospitalUffzkwdDQURYRUFVB8056-90-11 05:06:00 Test Item Value Reference Range Interpretation Comments Eosinophils (test code = 0.8 See_Comment [A utomated message] The Eosinophils) system which ge nerated this result tra nsmitted reference range : <=4.0. The reference r fernando was not used to int erpret this result as normal/abnormal . [facility]NfsdnafSANZJYUGPZ9644-04-03 05:06:00 Test Item Value Reference Range Interpretation Comments Lymphocytes (test code = Lymphocytes) 21.4 20.0-40.0 [facility] CenterAngnaifUODQFHDORG1969-51-20 05:06:00 Test Item Value Reference Range Interpretation Comments Segs (test code = Segs) 65.3 45.0-75.0 [facility] CenterannPARATHYROID FWHQDAK3454-64-04 05:06:00 Test Item Value Reference Range Interpretation Comments Ca Ion WB (test code = Ca Ion WB) 1.14 1.05-1.25 [facility] CenterannPARATHYROID JVHYDPM1182-35-41 05:06:00 Test Item Value Reference Range Interpretation Comments Ca Norm WB (test code = Ca Norm WB) 1.14 1.05-1.25 [facility] [employer] YEENZ6743-49-97 21:23:00 Test Item Value Reference Range Interpretation Comments Lactic Acid Lvl (test code = Lactic 1.7 0.5-2.2 Acid Lvl) [facility] [employer] [id number] 15:19:00 Test Item Value Reference Range Interpretation Comments Procalcitonin Lvl (test no gt See_Comment [Au tomated message] code = Procalcitonin Lvl) Th e system which generated this result transmitted ref erence range: <=0.10. The reference range was not used to interpr et this result as normal/abnormal . [facility] CenterannBACTERIAL - PEAGEDWO3036-89-61 15:03:00 Test Item Value Reference Range Interpretation Comments MRSA by PCR (test Negative (02/06/18 10:03 code = MRSA by PCR) AM) [facility] [employer]ightCHE[employer] [id number] 15:03:00 Test Item Value Reference Range Interpretation Comments Lactic Acid Lvl (test code = Lactic 2.1 0.5-2.2 Acid Lvl) [facility] CenterPergunterCARDIAC OXMXYNT0483-43-99 10:01:00 Test Item Value Reference Range Interpretation Comments Troponin-I (test code no gt See_Comment [Auto mated message] The = Troponin-I) system which g enerated this result transmit timur reference range : <=0.40. The reference r fernando was not used to interpr et this result as jasmyne l/abnormal. [facility] [employer]2018-05-29 10:01:00 Test Item Value Reference Range Interpretation Comments Troponin-T (test code no gt See_Comment [Auto mated message] The = Troponin-T) system which g enerated this result transmit timur reference range : <=0.100. The reference r fernando was not used to interpr et this result as jasmyne l/abnormal. [facility] [employer]2018-05-29 10:01:00 Test Item Value Reference Range Interpretation Comments Total CK (test code = Total CK) 188 12-191 [facility] [employer]2018-05-29 10:01:00 Test Item Value Reference Range Interpretation Comments CK MB Index (test 1.2 1 See_Comment [Automate d message] The code = CK MB Index) system w [employer] generated this result transmit timur reference range : <=2.5. The reference range was not used to interpr et this result as jasmyne l/abnormal. [employer]2018-05-29 10:01:00 Test Item Value Reference Range Interpretation Comments CK MB (test code = CK MB) 2.3 0.5-3.6 [facility] [employer]2018-05-29 06:28:00 Test Item Value Reference Range Interpretation Comments Ca Norm WB (test code = Ca Norm WB) 1.00 1.05-1.25 [employer] MJJDJKC4658-46-03 06:28:00 Test Item Value Reference Range Interpretation Comments Ca Ion WB (test code = Ca Ion WB) 0.99 1.05-1.25 [employer]2018-05-29 05:16:00 Test Item Value Reference Range Interpretation Comments CK MB Index (test 1.5 1 See_Comment [Automate d message] The code = CK MB Index) system w [employer] generated this result transmit timur reference range : <=2.5. The reference range was not used to interpr et this result as jasmyne l/abnormal. [employer]2018-05-29 05:16:00 Test Item Value Reference Range Interpretation Comments CK MB (test code = CK MB) 1.4 0.5-3.6 [facility] [employer]2018-05-29 05:16:00 Test Item Value Reference Range Interpretation Comments Troponin-T (test code no gt See_Comment [Auto mated message] The = Troponin-T) system which g enerated this result transmit timur reference range : <=0.100. The reference r fernando was not used to interpr et this result as jasmyne l/abnormal. [facility] [employer]2018-05-29 05:16:00 Test Item Value Reference Range Interpretation Comments Troponin-I (test code no gt See_Comment [Auto mated message] The = Troponin-I) system which g enerated this result transmit timur reference range : <=0.40. The reference r fernando was not used to interpr et this result as jasmyne l/abnormal. [facility] [employer]2018-05-29 05:16:00 Test Item Value Reference Range Interpretation Comments Total CK (test code = Total CK) 94 12-191 [facility] [employer]2018-05-29 05:16:00 Test Item Value Reference Range Interpretation Comments Albumin Lvl (test code = Albumin Lvl) 3.2 3.5-5.0 [facility] [employer]2018-05-29 05:16:00 Test Item Value Reference Range Interpretation Comments B/C Ratio (test code = B/C Ratio) 14 1 6-25 [facility] [employer]2018-05-29 05:16:00 Test Item Value Reference Range Interpretation Comments Total Protein (test code = Total 6.4 6.4-8.4 Protein) [facility] [employer]2018-05-29 05:16:00 Test Item Value Reference Range Interpretation Comments Globulin (test code = Globulin) 3.2 2.7-4.2 [facility] [employer]2018-05-29 05:16:00 Test Item Value Reference Range Interpretation Comments ALT (test code = ALT) 16 See_Comment [Auto mated message] The system which ge nerated this result transmit timur reference range : <=65. The reference range was not used to interpr et this result as jasmyne l/abnormal. [facility]/LBR2018-05-29 05:16:00 Test Item Value Reference Range Interpretation Comments A/G Ratio (test code = A/G Ratio) 1.0 1 0.7-1.6 [facility]2018-05-29 05:16:00 Test Item Value Reference Range Interpretation Comments Bili Total (test code = Bili Total) 0.3 0.2-1.3 [facility]2018-05-29 05:16:00 Test Item Value Reference Range Interpretation Comments Alk Phos (test code = Alk Phos) 67 39-136 [facility]2018-05-29 05:16:00 Test Item Value Reference Range Interpretation Comments AST (test code = AST) 14 See_Comment [Auto mated message] The system which ge nerated this result transmit timur reference range : <=37. The reference range was not used to interpr et this result as jasmyne l/abnormal. [place] [id number] 05:16:00 Test Item Value Reference Range Interpretation Comments Magnesium Lvl (test code = Magnesium 1.6 1.8-2.4 Lvl) [facility]2018-05-29 05:16:00 Test Item Value Reference Range Interpretation Comments Phosphorus (test code = Phosphorus) 2.1 2.5-4.5 [id number] 05:16:00 Test Item Value Reference Range Interpretation Comments Estimated % Lysis Rapid 0.9 See_Comment [Au tomated message] The (test code = Estimated syste m which generated % Lysis Rapid) this result t ransmitted reference range : <=7.5. The reference r fernando was not used to int erpret this result as normal/abnormal . [id number] 05:16:00 Test Item Value Reference Range Interpretation Comments G-value Rapid (test code = G-value 11.7 5.0-11.6 Rapid) [id number] 05:16:00 Test Item Value Reference Range Interpretation Comments K-time Rapid (test code = K-time 0.8 min 0.6-2.3 Rapid) [facility] HospitalOtxakwrTQUXMVUFMV0631-31-15 05:16:00 Test Item Value Reference Range Interpretation Comments Angle Rapid (test code = Angle 76 degrees 64-80 Rapid) [facility] HospitalRvvfbqpGBWLIQKQLV6248-98-02 05:16:00 Test Item Value Reference Range Interpretation Comments Max Amplitude Rapid (test code = Max 70 mm 52-71 Amplitude Rapid) [facility] HospitalWphzwmrOCBLPYMKVI0808-68-11 05:16:00 Test Item Value Reference Range Interpretation Comments ACT (TEG) Rapid (test code = ACT (TEG) 121 s 86-118 Rapid) [facility] Ho[id number] 05:16:00 Test Item Value Reference Range Interpretation Comments Split Point Rapid (test code = Split 0.4 min Point Rapid) [facility] HospitalDiogugpXEWHVOWGPY3704-49-41 05:16:00 Test Item Value Reference Range Interpretation Comments R-time Rapid (test code = R-time 0.8 min 0.4-0.7 Rapid) [facility] HospitalUiharlhNIWSWVBEEN9087-77-60 05:16:00 Test Item Value Reference Range Interpretation Comments INR (test code = INR) 1.14 1 0.85-1.17 [facility]ZyyxddxCKATECZTVV4720-91-82 05:16:00 Test Item Value Reference Range Interpretation Comments PTT (test code = PTT) 46.9 s 22.9-35.8 [facility] HospitalVvrzisaWQGTMIKTFI7130-96-63 05:16:00 Test Item Value Reference Range Interpretation Comments PT (test code = PT) 14.6 s 12.0-14.7 [facility] HospitalYzaezoeKYLVDQUPOS3647-61-14 01:34:00 Test Item Value Reference Range Interpretation Comments Plav Effect Plt (test code = Plav 220 Effect Plt) [facility] HospitalLcrwezbHZZGLEKUIO1296-39-61 01:34:00 Test Item Value Reference Range Interpretation Comments ASA Effect Plt (test code = ASA Effect 540 Plt) [facility] [id number] 01:29:00 Test Item Value Reference Range Interpretation Comments CK MB (test code = CK MB) 0.9 0.5-3.6 [facility] [id number] 01:29:00 Test Item Value Reference Range Interpretation Comments CK MB Index (test 1.2 1 See_Comment [Automate d message] The code = CK MB Index) system w [facility] generated this result transmit timur reference range : <=2.5. The reference range was not used to interpr et this result as jasmyne l/abnormal. [facility] [id number] 01:29:00 Test Item Value Reference Range Interpretation Comments Troponin-T (test code no gt See_Comment [Auto mated message] The = Troponin-T) system which g enerated this result transmit timur reference range : <=0.100. The reference r fernando was not used to interpr et this result as jasmyne l/abnormal. [facility]annCARD[facility]AC [id number] 01:29:00 Test Item Value Reference Range Interpretation Comments Troponin-I (test code no gt See_Comment [Auto mated message] The = Troponin-I) system which g enerated this result transmit timur reference range : <=0.40. The reference r fernando was not used to interpr et this result as jasmyne l/abnormal. [facility] [id number] 01:29:00 Test Item Value Reference Range Interpretation Comments Total CK (test code = Total CK) 77 12-191 [facility] HospitalHaoxiangni [facility] [id number] 01:29:00 Test Item Value Reference Range Interpretation Comments Lactic Acid Lvl (test code = Lactic 1.6 0.5-2.2 Acid Lvl) [facility] CenterannCHEM [id number] 01:29:00 Test Item Value Reference Range Interpretation Comments Osmolality (test code = Osmolality) 273 280-300 [facility] AND [id number] 01:29:00 Test Item Value Reference Range Interpretation Comments UA Sq Epi (test code = UA Sq Epi) None Seen [facility] AND [id number] 01:29:00 Test Item Value Reference Range Interpretation Comments UA Urobilinogen (test code = UA <=1.0 mg/dL 0.1-1.0 Urobilinogen) [facility] AND [id number] 01:29:00 Test Item Value Reference Range Interpretation Comments UA Color (test code = Light Yellow UA Color) *NA*(02/05/18 8:29 PM) [facility] AND [id number] 01:29:00 Test Item Value Reference Range Interpretation Comments UA Spec Grav (test code = UA Spec 1.010 1 Grav) [facility] AND [id number] 01:29:00 Test Item Value Reference Range Interpretation Comments UA pH (test code = UA pH) 7.5 1 5.0-8.0 [facility] AND [id number] 01:29:00 Test Item Value Reference Range Interpretation Comments UA Turbidity (test code Slight *ABN*(02/05/18 = UA Turbidity) 8:29 PM) [facility] AND [id number] 01:29:00 Test Item Value Reference Range Interpretation Comments UA Glucose (test code = UA Glucose) 300 mg/dL [facility] AND [id number] 01:29:00 Test Item Value Reference Range Interpretation Comments UA Protein (test code = UA Protein) 100 mg/dL [facility] AND [id number] 01:29:00 Test Item Value Reference Range Interpretation Comments UA Ketones (test code = UA Ketones) 20 mg/dL [facility] AND [id number] 01:29:00 Test Item Value Reference Range Interpretation Comments UA Nitrite (test code Negative (02/05/18 8:29 = UA Nitrite) PM) [facility] AND [id number] 01:29:00 Test Item Value Reference Range Interpretation Comments UA WBC (test code = 1 See_Comment [Automa timur message] The UA WBC) system which ge nerated this result transmit timur reference range : <=5. The reference range was not used to interpr et this result as jasmyne l/abnormal. [facility] AND [id number] 01:29:00 Test Item Value Reference Range Interpretation Comments UA Leuk Est (test Negative (02/05/18 8:29 code = UA Leuk Est) PM) [facility] AND [id number] 01:29:00 Test Item Value Reference Range Interpretation Comments UA RBC (test code = 3 See_Comment [Automa timur message] The UA RBC) system which ge nerated this result transmit timur reference range : <=2. The reference range was not used to interpr et this result as jasmyne l/abnormal. [facility] AND [id number] 01:29:00 Test Item Value Reference Range Interpretation Comments UA Amorph Aliya (test code = UA Few /HPF Amorph Aliya) [facility] AND [id number] 01:29:00 Test Item Value Reference Range Interpretation Comments UA Mucus (test code = UA Mucus) Few /LPF [facility] AND [id number] 01:29:00 Test Item Value Reference Range Interpretation Comments UA Blood (test code = Negative (02/05/18 8:29 UA Blood) PM) [facility] AND [id number] 01:29:00 Test Item Value Reference Range Interpretation Comments UA Bili (test code = Negative *NA*(02/05/18 UA Bili) 8:29 PM) [facility] [id number] 01:29:00 Test Item Value Reference Range Interpretation Comments U Osmolality (test code = U Osmolality) 477 300-800 [facility] [id number] 01:29:00 Test Item Value Reference Range Interpretation Comments U Sodium (test code = U Sodium) 123 [facility] [id number] 01:25:00 Test Item Value Reference Range Interpretation Comments FFP product (test code Product available = FFP product) (02/05/18 8:25 PM) [facility] HospitalSvqojzgBZMQMNUVWB0734-30-12 23:04:00 Test Item Value Reference Range Interpretation Comments ACT (TEG) Rapid (test code = ACT (TEG) 144 s 86-118 Rapid) [facility] HospitalAjvxcgnKEWVGMQIJJ4145-77-09 23:04:00 Test Item Value Reference Range Interpretation Comments Split Point Rapid (test code = Split 0.7 min Point Rapid) [facility] [id number] 23:04:00 Test Item Value Reference Range Interpretation Comments K-time Rapid (test code = K-time 0.9 min 0.6-2.3 Rapid) [facility] H[id number] 23:04:00 Test Item Value Reference Range Interpretation Comments R-time Rapid (test code = R-time 1.0 min 0.4-0.7 Rapid) [facility] H[id number] 23:04:00 Test Item Value Reference Range Interpretation Comments Max Amplitude Rapid (test code = Max 75 mm 52-71 Amplitude Rapid) [facility] HospitalPorrtuyRIIXYJVBEZ9902-66-21 23:04:00 Test Item Value Reference Range Interpretation Comments Angle Rapid (test code = Angle 76 degrees 64-80 Rapid) [facility] [id number] 23:04:00 Test Item Value Reference Range Interpretation Comments G-value Rapid (test code = G-value 14.8 5.0-11.6 Rapid) [facility] [id number] 23:04:00 Test Item Value Reference Range Interpretation Comments Estimated % Lysis Rapid 0.0 See_Comment [Au tomated message] The (test code = Estimated syste m which generated % Lysis Rapid) this result t ransmitted reference range : <=7.5. The reference r fernando was not used to int erpret this result as normal/abnormal . [facility] [id number] 23:00:00 Test Item Value Reference Range Interpretation Comments ABO/Rh (test code = ABO/Rh) A POS [facility] [id number] 23:00:00 Test Item Value Reference Range Interpretation Comments Antibody Scrn (test Negative (02/05/18 6:00 code = Antibody Scrn) PM) [facility]
--- NOTE | 2023-05-15 13:50 | RAD REPORT ---
EXAM DESCRIPTION: CT - Head Brain Wo Cont - 05/15/2023 1:44 pm CLINICAL HISTORY: AMS COMPARISON: Head Brain Wo Cont dated 01/26/2023; Head Brain Wo Cont dated 01/21/2023 TECHNIQUE: All CT scans are performed using dose optimization technique as appropriate and may inclu de automated exposure control or mA/KV adjustment according to patient size. FINDINGS: No intracranial hemorrhage, hydrocephalus or extra-axial fluid collection.No areas of brai n edema or evidence of midline shift. Small remote right basal ganglia and caudate infarcts. Right fr ontal craniotomy. The paranasal sinuses and mastoids are clear. The calvarium is intact. IMPRESSION: No acute intracranial abnormality.
[2023-05-15 13:58] LABS: Absolute Lymphocytes (CBC) 2.2 K/uL (0.7-4.9); Hematocrit 35.8 % (36.0-45.0); MCV 87.6 fL (80-100); MPV 8.2 fL (7.6-11.3); Platelets 239 thou/uL (152-406); RBC Red Blood Cell Count 4.08 M/uL (3.86-4.86)
[2023-05-15 14:16] LABS: Albumin 3.5 g/dL (3.4-5.0); Bilirubin Total 0.3 mg/dL (0.2-1.0); Protein, Total 7.2 g/dL (6.4-8.2)
[2023-05-15 14:30] LABS: Protime INR 1.09
[2023-05-15 15:38] LABS: Specific Gravity 1.013 (1.005-1.030); Urine Bilirubin NEGATIVE (Negative); Urine Blood Negative (Negative); Urine Clarity Clear (Clear); Urine Color Light-Yellow (Yellow); Urine Glucose 1+ (Negative); Urine Protein NEGATIVE (Negative); Urine Urobilinogen Normal (Normal); Urine pH 5.5 (5.0-7.0)
--- NOTE | 2023-05-15 15:38 | RAD REPORT ---
EXAM DESCRIPTION: RAD - Chest Single View - 05/15/2023 3:23 pm CLINICAL HISTORY: AMS COMPARISON: Chest Single View dated 02/27/2023; Chest Single View dated 02/24/2023; Chest Single View dated 01/26/2023; Chest Single View dated 01/14/2023 FINDINGS: Lines: Pacemaker. Lungs: No evidence of edema or pneumonia. Pleural: No significant pleural effusions or pneumothorax. Cardiac: Similar size and configuration. Mediastinum: Within normal limits. Bones: No acute fractures. Other: None IMPRESSION: No acute cardiopulmonary disease.
[2023-05-15] MEDS ORDERED: NA CHLORIDE 0.9% 500 ML ONE (16:17)
--- NOTE | 2023-05-15 16:34 | ER ---
Nurse's Notes [facility] [place] Name: Skylar Grossman Age: 88 yrs Sex: Female : 1935 Arrival Date: 05/15/2023 Time: 13:04 Bed 19 Private MD: Diagnosis: Altered mental status, unspecified;Dehydration Presentation: 05/15 13:06 Chief complaint: EMS states: EMS called for AMS, pt lives w/ her sister who called EMS for confusion, stated that the pt believes someone came into the home and took her money, pt oriented to person place, and year upon arrival to ED, HR elevated to 140s-150s, afib w/ RVR, other VSS. Coronavirus screen: Vaccine status: Patient reports receiving the 2nd dose of the covid vaccine. Ebola Screen: No symptoms or risks identified at this time. Initial Sepsis Screen: Does the patient meet any 2 criteria? Altered Mental Status. HR > 90 bpm. Does the patient have a suspected source of infection? No. Patient's initial sepsis screen is negative. Risk Assessment: Do you want to hurt yourself or someone else? Patient reports no desire to harm self or others. Onset of symptoms was May 15, 2023. 13:06 Method Of Arrival: EMS: [facility] 13:06 Acuity: FARIDA 2 ph Triage Assessment: 13:12 General: Appears in no apparent distress. comfortable, Behavior is calm, cooperative. ph Pain: Denies pain. Neuro: Level of Consciousness is awake, alert, obeys commands, Oriented to person, place, time. Cardiovascular: Capillary refill < 3 seconds in bilateral fingers Patient's skin is warm and dry. Rhythm is sinus rhythm. Respiratory: Airway is patent Respiratory effort is even, unlabored. GI: No signs and/or symptoms were reported involving the gastrointestinal system. Derm: Skin is fragile, is thin, Skin is pink, warm \T\ dry. Musculoskeletal: Circulation, motion, and sensation intact. Range of motion: intact in all extremities. Historical: - Allergies: 13:11 Codeine (Upset stomach); ph 13:11 meperidine HCl; ph 13:11 Morphine; ph - Home Meds: 13:11 amlodipine 10 mg tablet daily [Active]; atorvastatin 10 mg Oral tablet every day at ph bedtime [Active]; gabapentin 300 mg Oral capsule 3 times per day [Active]; hydralazine 100 mg Oral tablet 3 times per day [Active]; irbesartan 300 mg Oral tablet daily [Active]; - PMHx: 13:11 Cardiac pacemaker in situ; CVA; Dementia; Depression; Diabetes - IDDM; GERD; ph Hypercholesterolemia; Hypertensive disorder; - PSHx: 13:11 Appendectomy; Cholecystectomy; Total abdominal hysterectomy; ph - Immunization history:: Adult Immunizations unknown. - Social history:: Smoking status: unknown. - Family history:: not pertinent. - Hospitalizations: : No recent hospitalization is reported. Screenin:13 [facility] ED Fall Risk Assessment (Adult) History of falling in the last 3 months, ph including since admission No falls in past 3 months (0 pts) Confusion or Disorientation Yes (5 pts) Intoxicated or Sedated No (0 pts) Impaired Gait No (0 pts) Mobility Assist Device Used No (0 pt) Altered Elimination No (0 pt) Score/Fall Risk Level 3 or more points = High Risk Oriented to surroundings, Maintained a safe environment, Provided non-skid footwear, Hourly rounding (assess needs \T\ fall precautionary measures) done, Used ambulatory aids as needed (educated on \T\ assisted with). Abuse screen: Denies threats or abuse. Denies injuries from another. Nutritional screening: No deficits noted. Tuberculosis screening: No symptoms or risk factors identified. Vital Signs: 13:06 BP 148 / 104; Pulse 99; Resp 18; Temp 98.1; Pulse Ox 99% on R/A; Weight 70.76 kg; ph 14:00 BP 165 / 100; Pulse 88; Resp 18; Pulse Ox 98% on R/A; ph 15:03 BP 152 / 94; Pulse 80; Resp 18; Pulse Ox 98% on R/A; ph ED Course: 13:06 Patient arrived in ED. ds4 13:06 Kareem Atkinson MD is Attending Physician. rn 13:06 Bri Elliott RN is Primary Nurse. ph 13:11 Triage completed. ph 13:12 Arm band placed on Patient placed in an exam room, on a stretcher. ph 13:13 Patient has correct armband on for positive identification. Bed in low position. Call ph light in reach. Side rails up X 1. color television console monitor on. Pulse ox on. NIBP on. Door closed. Noise minimized. Warm blanket given. Pillow given. 13:45 Head Brain Wo Cont In Process Unspecified. EDMS 14:00 Maintain EMS IV. Dressing intact. Good blood return noted. Site clean \T\ dry. Gauge \T\ ph site: 20 RFA. 15:03 No provider procedures requiring assistance completed. ph 15:25 Chest Single View XRAY In Process Unspecified. EDMS 15:38 Urinalysis w/ reflexes Sent. ph 15:39 Straight cath inserted, using sterile technique, 16 Fr. Specimen obtained. Returned ph vipin urine. Patient tolerated well. Administered Medications: 13:14 Drug: NS 0.9% IV 500 ml Route: IV; Rate: bolus; Site: right forearm; ph 16:15 Drug: NS 0.9% IV 500 ml Route: IV; Rate: bolus; Site: right forearm; ph 16:45 Follow up: Response: No adverse reaction; IV Status: Completed infusion ph Medication: 13:13 VIS not applicable for this client. ph Outcome: 16:34 Discharge ordered by . rn 17:47 Patient left the ED. ph Signatures: Dispatcher [employer] EDKareem Mandujano MD MD rn Swanson, Donovan ds4 Bri Elliott RN RN ph
--- NOTE | 2023-05-15 16:34 | EDPHYS ---
Physician Documentation [facility] Name: Skylar Grossman Age: 88 yrs Sex: Female : 1935 Arrival Date: 05/15/2023 Time: 13:04 Bed 19 Private MD: ED Physician Kareem Atkinson HPI: 05/15 14:15 This 88 yrs old Female presents to ER via EMS with complaints of Altered Mental Status. rn 14:15 The patient presents with confusion. Onset: The symptoms/episode began/occurred at an rn unknown time. Possible causes: unknown. Current symptoms: In the emergency department the patient's symptoms are unchanged from the initial presentation. The patient has experienced similar episodes in the past. The patient has not recently seen a physician. EMS reports 911 called by his sister for altered mental status of unknown onset. Sister told EMS that she has had this problem before with paranoia in the setting of a UTI. No fever. No chest pain. No abdominal pain. No trauma. Patient states that someone is trying to steal her money but cannot elaborate upon the situation. No changes in medication. Denies pain anywhere.. Historical: - Allergies: 13:11 Codeine (Upset stomach); ph 13:11 meperidine HCl; ph 13:11 Morphine; ph - Home Meds: 13:11 amlodipine 10 mg tablet daily [Active]; atorvastatin 10 mg Oral tablet every day at ph bedtime [Active]; gabapentin 300 mg Oral capsule 3 times per day [Active]; hydralazine 100 mg Oral tablet 3 times per day [Active]; irbesartan 300 mg Oral tablet daily [Active]; - PMHx: 13:11 Cardiac pacemaker in situ; CVA; Dementia; Depression; Diabetes - IDDM; GERD; ph Hypercholesterolemia; Hypertensive disorder; - PSHx: 13:11 Appendectomy; Cholecystectomy; Total abdominal hysterectomy; ph - Immunization history:: Adult Immunizations unknown. - Social history:: Smoking status: unknown. - Family history:: not pertinent. - Hospitalizations: : No recent hospitalization is reported. ROS: 14:15 Constitutional: Negative for fever, chills, and weight loss, Eyes: Negative for injury, rn pain, redness, and discharge, Neck: Negative for injury, pain, and swelling, Cardiovascular: Negative for chest pain, palpitations, and edema, Respiratory: Negative for shortness of breath, cough, wheezing, and pleuritic chest pain, Abdomen/GI: Negative for abdominal pain, nausea, vomiting, diarrhea, and constipation, Back: Negative for injury and pain, MS/Extremity: Negative for injury and deformity, Skin: Negative for injury, rash, and discoloration, Neuro: Negative for headache, weakness, numbness, tingling, and seizure. Exam: 14:15 Constitutional: This is a well developed, well nourished patient who is awake, alert, rn and in no acute distress. Head/Face: Normocephalic, atraumatic. ENT: Dry mucous membranes Cardiovascular: Tachycardic, irregular. Respiratory: No increased work of breathing, no retractions or nasal flaring. Abdomen/GI: Soft, nontender Skin: Warm, dry, no signs of cellulitis MS/ Extremity: Pulses equal, no cyanosis. Neuro: Awake and alert, GCS 15, oriented to person, place, time, and situation. Cranial nerves II-XII grossly intact. Motor strength 5/5 in all extremities. Sensory grossly intact. 16:26 ECG was reviewed by the Attending Physician. rn Vital Signs: 13:06 BP 148 / 104; Pulse 99; Resp 18; Temp 98.1; Pulse Ox 99% on R/A; Weight 70.76 kg; ph 14:00 BP 165 / 100; Pulse 88; Resp 18; Pulse Ox 98% on R/A; ph 15:03 BP 152 / 94; Pulse 80; Resp 18; Pulse Ox 98% on R/A; ph MDM: 13:06 Patient medically screened. rn 16:32 Differential Diagnosis: electrolyte abnormality, hypoglycemia, pneumonia, UTI, volume rn depletion. Data reviewed: vital signs, nurses notes, lab test result(s), EKG, radiologic studies, CT scan, plain films, and as a result, I will discharge patient. Consideration of Admission/Observation Escalation of care including admission/observation considered. Management of patient was discussed with the following: Primary Care Provider: Case discussed with Dr. Angel, knows patient well and states has done this several times, states if okay and back to baseline okay to [place] home. No infection found at this time. Lactic acid elevated and has been so in the past. Improved with IV fluids and Dr. Angel states will see her in clinic in the next 24 to 48 hours. Updated family and family agree that patient is at baseline and they would like to take her home. They also confirm that this is happened several times and does well at home in the past. Historians other than the Patient: Family Member: Sister. Care significantly affected by the following chronic conditions: Diabetes, Hypertension, Dementia. Counseling: I had a detailed discussion with the patient and/or guardian regarding the historical points, exam findings, and any diagnostic results supporting the discharge/admit diagnosis, lab results, radiology results, the need for outpatient follow up, to return to the emergency department if symptoms worsen or persist or if there are any questions or concerns that arise at home. Response to treatment: the patient's symptoms have markedly improved after treatment, the patient's condition has returned to base line, the patient is now symptom free, and as a result, I will discharge patient. Special discussion: I discussed with the patient/guardian in detail that at this point there is no indication for admission to the hospital. It is understood, however, that if the symptoms persist or worsen the patient needs to return immediately for re-evaluation. Based on the history and exam findings, there is no indication for further emergent testing or inpatient evaluation. I discussed with the patient/guardian the need to see the primary care provider for further evaluation of the symptoms. 05/15 13:07 Order name: Urinalysis w/ reflexes; Complete Time: 15:57 rn 05/15 13:52 Order name: Comprehensive Metabolic Panel; Complete Time: 14:22 [facility] 05/15 13:52 Order name: Lactate w/ 2H reflex if indic.; Complete Time: 14:22 [facility] 05/15 13:52 Order name: CBC with Automated Diff; Complete Time: 14:09 [facility] 05/15 13:52 Order name: Protime (+INR); Complete Time: 15:11 [facility] 05/15 13:52 Order name: PTT, Activated Partial Thromb; Complete Time: 15:11 [facility] 05/15 13:52 Order name: Blood Culture [facility] 05/15 13:52 Order name: Blood Culture [facility] 05/15 13:07 Order name: Chest Single View XRAY; Complete Time: 15:57 rn 05/15 13:34 Order name: Head Brain Wo Cont; Complete Time: 14:09 [facility] 05/15 13:07 Order name: EKG; Complete Time: 14:33 rn 05/15 13:07 Order name: Accucheck; Complete Time: 13:45 rn 05/15 13:07 Order name: Cardiac monitoring; Complete Time: 13:45 rn 05/15 13:07 Order name: EKG - Nurse/Tech; Complete Time: 15:38 rn 05/15 13:07 Order name: IV Saline Lock - Large Bore; Complete Time: 13:30 rn 05/15 13:07 Order name: Labs collected and sent; Complete Time: 13:45 rn 05/15 13:07 Order name: O2 Per Protocol; Complete Time: 13:14 rn 05/15 13:07 Order name: O2 Sat Monitoring; Complete Time: 13:14 rn 05/15 13:07 Order name: Vital Signs; Complete Time: 13:14 rn EC:26 Rate is 73 beats/min. Rhythm is regular. QRS Jacob is Normal. MA interval is normal. QRS rn interval is prolonged at 128 msec. QT interval is normal. No Q waves. T waves are Normal. No ST changes noted. Clinical impression: NSR w/ Non-specific ST/T Changes. Interpreted by me. Reviewed by me. Administered Medications: 13:14 Drug: NS 0.9% IV 500 ml Route: IV; Rate: bolus; Site: right forearm; ph 16:15 Drug: NS 0.9% IV 500 ml Route: IV; Rate: bolus; Site: right forearm; ph 16:45 Follow up: Response: No adverse reaction; IV Status: Completed infusion ph Disposition Summary: 05/15/23 16:34 Discharge Ordered Location: Home rn Problem: new rn Symptoms: have improved rn Condition: Stable rn Diagnosis - Altered mental status, unspecified rn - Dehydration rn Followup: rn - With: Private Physician - When: As needed - Reason: Recheck today's complaints, Re-evaluation by your physician Discharge Instructions: - Discharge Summary Sheet rn - Confusion rn - Dehydration, Adult rn Forms: - Medication Reconciliation Form rn - Thank You Letter rn - Antibiotic rn circulating - Prescription Opioid Use rn - Patient Portal Instructions rn - Leadership Thank You Letter rn Signatures: Dispatcher [employer] EDKareem Mandujano MD MD rn Hall, Patricia, RN RN ph Corrections: (The following items were deleted from the chart) 14:35 14:33 Head Brain Wo [id number].[id number] ordered. EDMS EDMS 15:58 14:15 Constitutional: This is a well developed, well nourished patient who is awake, rn alert, and in no acute distress. Head/Face: Normocephalic, atraumatic. ENT: Dry mucous membranes Cardiovascular: Regular rate and rhythm. No pulse deficits. Respiratory: No increased work of breathing, no retractions or nasal flaring. Abdomen/GI: Soft, nontender Skin: Warm, dry, no signs of cellulitis MS/ Extremity: Pulses equal, no cyanosis. Neuro: Awake and alert, GCS 15, oriented to person, place, time, and situation. Cranial nerves II-XII grossly intact. Motor strength 5/5 in all extremities. Sensory grossly intact. rn
[2023-05-15 18:01] VITALS: TEMP 98.1
[2023-05-15 18:02] VITALS: O2SAT 98
[2023-05-15 18:03] VITALS: BP 152/94
--- NOTE | 2023-05-16 16:46 | EKG ---
Test Date: 2023-05-15 Test Time: 15:17:35 [employer] Administrator: PH MEASUREMENT RESULTS: Intervals: Rate: 73 PA: 198 QRSD: 128 QT: 442 QTc: 486 [place]: P: 59 PA: 198 QRS: 5 T: 11 INTERPRETIVE STATEMENTS: Normal sinus rhythm Right bundle branch block Abnormal ECG Compared to ECG 02/27/2023 11:32:59 Ventricular premature complex(es) no longer present Electronically Signed On 05-16-23 16:42:47 CDT by Adrian Martin
== END 2023-05-15 17:47 | disposition home or self-care (01) ==
LOC: ER 13:04
DX: R41.82 Altered mental status, unspecified (principal); E86.0 Dehydration; Z95.0 Presence of cardiac pacemaker; I10 Essential (primary) hypertension; E11.9 Type 2 diabetes mellitus without complications; F03.90 Unspecified dementia, unspecified severity, without behavioral disturbance, psychotic disturbance, mood disturbance, and anxiety; Z88.5 Allergy status to narcotic agent; Z88.8 Allergy status to other drugs, medicaments and biological substances
CPT/HCPCS: 93005; 87040 ×2; 85025; 36415; 85610; 83605 ×2; 85730; 81003; 80053; 70450; 71045; 51702; 99285; J7040

== ENCOUNTER 2023-08-13 11:59 | Emergency (ER) | payer OTHER ==
--- OUTSIDE RECORDS SUMMARY | 2023-08-13 12:12 | XMS REPORT | Continuity of Care Document ---
:1935 Author Organization [facility] t Address [address] [place] [address] [place] [id number] Care Team Providers Name Role Phone No MD, Pcp [facility] Primary Care Physician Unavailable JUAQUIN MCINTYRE Attending Clinician Unavailable HARINI BETANCOURT Attending Clinician Unavailable HARINI BETANCOURT Attending Clinician Unavailable Visit, Adc Nurse Attending Clinician Unavailable [email or web address] Attending Clinician Unavailable GILBERT GERARDO Attending Clinician Unavailable Inez Martin MD Attending Clinician INEZ MARTIN Attending Clinician Unavailable Doctor Unassigned, [place] Attending Clinician Unavailable JARVIS SHARP Attending Clinician Unavailable Liza Zarco Attending Clinician Raul Rosen MD Attending Clinician Jarvis Sharp MD Attending Clinician DAYAMI LOVE Attending Clinician Unavailable Dayami Whitman Attending Clinician [phone] Pob, [facility] Lab Main Attending Clinician [...] Db Test Attending Clinician Unavailable Pavan FIERROP, Ujd Attending Clinician JUD CHUA Attending Clinician Unavailable JUAQUIN MCINTYRE Admitting Clinician Unavailable [email or web address] Admitting Clinician Unavailable HARINI BETANCOURT Admitting Clinician Unavailable INEZ MARTIN Admitting Clinician Unavailable JARVIS SHARP Admitting Clinician Unavailable Chel GABRIEL, Jarvis Admitting Clinician ACACIA DEL TORO Admitting Clinician Unavailable Alverto GABRIEL, Acacia Landaverde Admitting Clinician LUIS E DOMINGUEZ Admitting Clinician Unavailable Payers Payer Name Policy Type Policy Number Effective Date Expiration Date S dianelys MEDICARE PART A AND [id number] 1998 B 00:00:00 MEDICARE A B [id number] 1998 00:00:00 [facility] [id number] 2019 HEALTHCARE 00:00:00 MEDICARE PART A \\T\\ [id number] 1998 B 00:00:00 Problems Condition Condition Condition Status Onset Resolution Last Treating Co mments Source Name Details Category Date Date Treatment Clinician Date Hyponatrem Hyponatrem Disease Recurre Univers ia ia nce 2-14 ity of 00:00: [place] [facility] Branch 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 2-14 it y of 00:00: [place] [facility] At high At high Disease Active Univers risk for risk for 2-14 ity of seizures seizures 00:00: [place] [facility] Sick sinus Sick sinus Disease Active U nivers syndrome syndrome 1-27 ity of 00:00: [place] [facility] Symptomati Symptomati Disease Active U nivers c c 1-26 ity of bradycardi bradycardi [place] a 00 Medical Branch Sinus Sinus Disease Active Overview: Univer s pause pause 09-13 Formattin ity of 00:00: g of this note Medical might be Branch different from the original. Added automatic ally from request for surgery [id number] Syncope Syncope Disease Active Overview: Univ ers and and 09-13 Formattin ity of collapse collapse 00:00: g of this [place] as note Medical might be Branch different from the original. 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 Right Neuralgia, Neuralgia, Disease Active Overview : Univers neuritis, neuritis, 12-04 Formattin i ty of and and 00:00: g of this [place] radiculiti radiculiti 00 note Me dical s, s, might be Branch unspecifie unspecifie different d d from the original. Cervical radiculop athy Osteoarthr Osteoarthr Disease Active Overview : Univers itis itis 3-26 Formattin ity of 00:00: g of this [place] 00 note Medical might be Branch different from the original. 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 ICD10 Diagnosis Term Graphite Disk As[employer]er Utility Chronic Chronic Disease Active 2005-09 Univers depressive depressive 1-15 it y of personalit personalit 00:00: [place] y disorder y disorder 00 Me dical Branch HLD HLD Disease Active 2005-09 Overview: Univer s (hyperlipi (hyperlipi 1-15 Formattin ity of demia) demia) 00:00: g of this [place] 00 note Medical might be Branch different from the original. 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 ICD10 Diagnosis Term Graphite Disk Assembler Utility Allergies, Adverse Reactions, Alerts Allergy Allergy [...] Natural father High blood pressure C HI [facility] Social History Social Habit Start Date Stop Date Quantity Comments Source History SDOH Social Unive rsity of [facility] Med ical Together Branch History SDOH Social Unive rsity of [facility] Medical Branch History SDOH Social Unive rsity of [facility] Medical Membership Branch History SDOH Social Unive rsity of [facility] Medical Meetings Branch Sexual orientation [facility] History SDOH [facility] Alcohol Comment Medical C enter Exposure to 2022-11-13 2022-11-23 Not sure University of SARS-CoV-2 (event) 00:00:00 12:54:00 [place] [facility] History of Social 2022-10-25 2022-10-25 Univers ity of function 00:00:00 00:00:00 [place] Medical [facility] History SDOH 2022-10-25 2022-10-25 2 University o f Transport Med 00:00:00 00:00:00 [place] Medic al Branch History SDOH 2022-10-25 2022-10-25 2 University o f Transport Non-Med 00:00:00 00:00:00 [place] M edical Branch History SDOH 2022-10-25 2022-10-25 1 University o f Alcohol Frequency 00:00:00 00:00:00 [place] M edical Branch History SDOH 2022-10-25 2022-10-25 0 University o f Alcohol Std Drinks 00:00:00 00:00:00 [place] Medical Branch History SDOH 2022-10-25 2022-10-25 1 University o f Alcohol Binge 00:00:00 00:00:00 [place] Medic al Branch History SDOH Social 2022-10-25 2022-10-25 4 Unive rsity of Connections Phone 00:00:00 00:00:00 [place] M edical Branch History SDOH Social 2022-10-25 2022-10-25 4 Unive rsity of Connections Living 00:00:00 00:00:00 [place] Medical [facility] History SDOH 2022-10-25 2022-10-25 0 University o f Physical Activity 00:00:00 00:00:00 [place] M edical DPW Branch History SDOH 2022-10-25 2022-10-25 0 University o f Physical Activity 00:00:00 00:00:00 [place] M edical MPS Branch History SDAR 2022-10-25 2022-10-25 5 University o f Financial 00:00:00 00:00:00 [place] [facility] History [facility] Food 2022-10-25 2022-10-25 1 Univers ity of Worry 00:00:00 00:00:00 [place] [facility] Branch History SDAR Food 2022-10-25 2022-10-25 1 Univers ity of Scarcity 00:00:00 00:00:00 [facility] Tobacco use and 2022-08-03 2022-08-03 Smokeless Universit y of exposure 00:00:00 00:00:00 tobacco non-user [facility] dical [place] Alcohol intake 2020-03-26 2020-03-[address] [facility] 00:00:00 00:00:00 non-drinker of Medical Ce nter alcohol (finding) Sex Assigned At [address] [facility] k[facility] 00:00:00 00:00:00 [facility] Smoking Status Start Date Stop Date Source Never smoked tobacco [facility] Medications Ordered Filled Start Stop Current Ordering Indication Dosage Frequency Signature Comments Components Source Medication Medication Date Date Medication? Clinician (SIG) Name Name amLODIPine Yes 5mg Take 5 mg [place] 5 mg tablet 2-21 by mouth ity of 17:33: at [place] [address] bedtime. Medical Branch aspirin 81 Yes 81mg Take 81 mg U nivers mg EC 2-21 by mouth ity of tablet 17:33: in the [place] [address] morning. Medical Branch lisinopriL 3-0 Yes 20mg Take 20 mg U nivers 20 mg 2-21 by mouth ity of tablet 17:33: in the [place] [address] morning Medical and 20 mg Branch in the evening. metFORMIN 3-0 Yes 500mg Take 500 Uni vers 500 mg 2-21 mg by ity of tablet 17:33: mouth in [place] 53 the Medical morning Branch and 500 mg in the evening. Take with meals. pantoprazol 3-0 Yes 40mg Take 40 mg Univers e 2-21 by mouth ity of (PROTONIX) 17:33: in the [place] 20 mg EC 53 morning. Medical tablet Branch tamsulosin 2022-0 Yes Take by Univ ers (FLOMAX) 2-21 mouth ity of 0.4 mg 24 17:33: daily. [facility] 53 Medical Branch FLUoxetine 2022-0 Yes 20mg Take 20 mg U nivers 20 mg 2-21 by mouth ity of capsule 17:33: in the [place] [address] morning. Medical Branch gabapentin 2022-0 Yes 300mg Take 300 Un teo 300 mg 2-21 mg by ity of capsule 17:33: mouth 2 [place] [address] (two) Medical times Branch daily as needed. memantine 2022-0 Yes 10mg Take 10 mg [place] te[place] 10 mg 2-21 by mouth ity of tablet 17:33: in the [place] [address] morning Medical and 10 mg Branch in the evening. simvastatin 3-0 Yes 20mg Take 20 mg Univers 20 mg 2-21 by mouth ity of tablet 17:33: at [place] [address] bedtime. Medical Branch amLODIPine 3-0 Yes 5mg Take 5 mg Un teo 5 mg tablet 2-21 by mouth ity of 17:33: at [place] [address] bedtime. Medical Branch aspirin 81 2023-0 Yes 81mg Take 81 mg U nivers mg EC 2-21 by mouth ity of tablet 17:33: in the [place] [address] morning. Medical Branch lisinopriL 3-0 Yes 20mg Take 20 mg U nivers 20 mg 2-21 by mouth ity of tablet 17:33: in the [place] [address] morning Medical and 20 mg Branch in the evening. metFORMIN 2023-0 Yes 500mg Take 500 Uni vers 500 mg 2-21 mg by ity of tablet 17:33: mouth in [place] [address] the Medical morning Branch and 500 mg in the evening. Take with meals. pantoprazol 3-0 Yes 40mg Take 40 mg Univers e 2-21 by mouth ity of (PROTONIX) 17:33: in the [place] 20 mg EC 53 morning. Medical tablet Branch tamsulosin 2022-0 Yes Take by [facility] ers (FLOMAX) 2-21 mouth ity of 0.4 mg 24 17:33: daily. [place] hr capsule 53 Medical Branch FLUoxetine 2022-0 Yes 20mg Take 20 mg U nivers 20 mg 2-21 by mouth ity of capsule 17:33: in the [place] [address] morning. Medical Branch gabapentin 2022-0 Yes 300mg Take 300 Un teo 300 mg 2-21 mg by ity of capsule 17:33: mouth 2 [place] 53 (two) Medical times Branch daily as needed. memantine 2022-0 Yes 10mg Take 10 mg Un teo 10 mg 2-21 by mouth ity of tablet 17:33: in the [place] [address] morning Medical and 10 mg Branch in the evening. simvastatin 3-0 Yes 20mg Take 20 mg Univers 20 mg 2-21 by mouth ity of tablet 17:33: at [place] [address] bedtime. Medical Branch amLODIPine 2022-0 Yes 5mg Take 5 mg Un teo 5 mg tablet 2-21 by mouth ity of 17:33: at [place] [address] bedtime. Medical Branch aspirin 81 2022-0 Yes 81mg Take 81 mg U nivers mg EC 2-21 by mouth ity of tablet 17:33: in the [place] [address] morning. Medical Branch lisinopriL 2022-0 Yes 20mg Take 20 mg U nivers 20 mg 2-21 by mouth ity of tablet 17:33: in the [place] [address] morning Medical and 20 mg Branch in the evening. metFORMIN 3-0 Yes 500mg Take 500 Uni vers 500 mg 2-21 mg by ity of tablet 17:33: mouth in [place] 53 the Medical morning Branch and 500 mg in the evening. Take with meals. pantoprazol 3-0 Yes 40mg Take 40 mg Univers e 2-21 by mouth ity of (PROTONIX) 17:33: in the [place] 20 mg EC 53 morning. Medical tablet Branch tamsulosin 2022-0 Yes Take by [facility] ers (FLOMAX) 2-21 mouth ity of 0.4 mg 24 17:33: daily. [place] hr capsule 53 Medical Branch FLUoxetine 2022-0 Yes 20mg Take 20 mg U nivers 20 mg 2-21 by mouth ity of capsule 17:33: in the [place] [address] morning. Medical Branch gabapentin 2022-0 Yes 300mg Take 300 Un teo 300 mg 2-21 mg by ity of capsule 17:33: mouth 2 [place] [address] (two) Medical times Branch daily as needed. memantine 3-0 Yes 10mg Take 10 mg Un teo 10 mg 2-21 by mouth ity of tablet 17:33: in the [place] [address] morning Medical and 10 mg Branch in the evening. simvastatin 2022-0 Yes 20mg Take 20 mg Univers 20 mg 2-21 by mouth ity of tablet 17:33: at [place] [address] bedtime. Medical Branch amLODIPine 2022-0 Yes 5mg Take 5 mg Un teo 5 mg tablet 2-21 by mouth ity of 17:33: at [place] [address] bedtime. Medical Branch aspirin 81 2022-0 Yes 81mg Take 81 mg U nivers mg EC 2-21 by mouth ity of tablet 17:33: in the [place] [address] morning. Medical Branch lisinopriL 2022-0 Yes 20mg Take 20 mg U nivers 20 mg 2-21 by mouth ity of tablet 17:33: in the [place] [address] morning Medical and 20 mg Branch in the evening. metFORMIN 2022-0 Yes 500mg Take 500 Uni vers 500 mg 2-21 mg by ity of tablet 17:33: mouth in [place] [address] the Medical morning Branch and 500 mg in the evening. Take with meals. pantoprazol 2022-0 Yes 40mg Take 40 mg Univers e 2-21 by mouth ity of (PROTONIX) 17:33: in the [place] 20 mg EC morning. Medical tablet Branch tamsulosin 2022-0 Yes Take by Univ ers (FLOMAX) 2-21 mouth ity of 0.4 mg 24 17:33: daily. [place] hr capsule 53 Medical Branch FLUoxetine 2022-0 Yes 20mg Take 20 mg U nivers 20 mg 2-21 by mouth ity of capsule 17:33: in the [place] [address] morning. Medical Branch gabapentin 2022-0 Yes 300mg Take 300 Un teo 300 mg 2-21 mg by ity of capsule 17:33: mouth 2 [place] [address] (two) Medical times Branch daily as needed. memantine 2022-0 Yes 10mg Take 10 mg Un teo 10 mg 2-21 by mouth ity of tablet 17:33: in the [place] [address] morning Medical and 10 mg Branch in the evening. simvastatin 2022-0 Yes 20mg Take 20 mg Univers 20 mg 2-21 by mouth ity of tablet 17:33: at [place] [address] bedtime. Medical Branch amLODIPine 2022-0 Yes 5mg Take 5 mg Un teo 5 mg tablet 2-21 by mouth ity of 17:33: at [place] [address] bedtime. Medical Branch aspirin 81 2022-0 Yes 81mg Take 81 mg U nivers mg EC 2-21 by mouth ity of tablet 17:33: in the [place] [address] morning. Medical Branch lisinopriL 2022-0 Yes 20mg Take 20 mg U nivers 20 mg 2-21 by mouth ity of tablet 17:33: in the [place] [address] morning Medical and 20 mg Branch in the evening. metFORMIN 2022-0 Yes 500mg Take 500 Uni vers 500 mg 2-21 mg by ity of tablet 17:33: mouth in [place] [address] the Medical morning Branch and 500 mg in the evening. Take with meals. pantoprazol 2022-0 Yes 40mg Take 40 mg Univers e 2-21 by mouth ity of (PROTONIX) 17:33: in the [place] 20 mg EC morning. Medical tablet Branch tamsulosin 2022-0 Yes Take by [facility] ers (FLOMAX) 2-21 mouth ity of 0.4 mg 24 17:33: daily. [place] hr capsule 53 Medical Branch FLUoxetine 2022-0 Yes 20mg Take 20 mg U nivers 20 mg 2-21 by mouth ity of capsule 17:33: in the [place] [address] morning. Medical Branch gabapentin 2022-0 Yes 300mg Take 300 Un teo 300 mg 2-21 mg by ity of capsule 17:33: mouth 2 [place] [address] (two) Medical times Branch daily as needed. memantine 2022-0 Yes 10mg Take 10 mg Un teo 10 mg 2-21 by mouth ity of tablet 17:33: in the [place] [address] morning Medical and 10 mg Branch in the evening. simvastatin 3-0 Yes 20mg Take 20 mg Univers 20 mg 2-21 by mouth ity of tablet 17:33: at [place] [address] bedtime. Medical Branch amLODIPine 3-0 Yes 5mg Take 5 mg Un teo 5 mg tablet 2-21 by mouth ity of 17:33: at [place] [address] bedtime. Medical Branch aspirin 81 2022-0 Yes 81mg Take 81 mg U nivers mg EC 2-21 by mouth ity of tablet 17:33: in the [place] [address] morning. Medical Branch lisinopriL 2022-0 Yes 20mg Take 20 mg U nivers 20 mg 2-21 by mouth ity of tablet 17:33: in the [place] [address] morning Medical and 20 mg Branch in the evening. metFORMIN 2022-0 Yes 500mg Take 500 Uni vers 500 mg 2-21 mg by ity of tablet 17:33: mouth in [place] 53 the Medical morning Branch and 500 mg in the evening. Take with meals. pantoprazol 2022-0 Yes 40mg Take 40 mg Univers e 2-21 by mouth ity of (PROTONIX) 17:33: in the [place] 20 mg EC 53 morning. Medical tablet Branch tamsulosin 2022-0 Yes Take by Univ ers (FLOMAX) 2-21 mouth ity of 0.4 mg 24 17:33: daily. [place] hr capsule 53 Medical Branch FLUoxetine 2022-0 Yes 20mg Take 20 mg U nivers 20 mg 2-21 by mouth ity of capsule 17:33: in the [place] [address] morning. Medical Branch gabapentin 2022-0 Yes 300mg Take 300 Un teo 300 mg 2-21 mg by ity of capsule 17:33: mouth 2 [place] [address] (two) Medical times Branch daily as needed. memantine 2022-0 Yes 10mg Take 10 mg Un teo 10 mg 2-21 by mouth ity of tablet 17:33: in the [place] [address] morning Medical and 10 mg Branch in the evening. simvastatin 2022-0 Yes 20mg Take 20 mg Univers 20 mg 2-21 by mouth ity of tablet 17:33: at [place] [address] bedtime. Medical Branch levETIRAcet 2022-0 2022- No 250mg Take 250 Univers am (KEPPRA) 2-21 02-21 mg by ity of 250 mg 13:41: 00:00 mouth in [place] tablet 41 :00 the Medical morning Branch and 250 mg in the evening. levETIRAcet 2022-0 2022- No [id number] 500mg Take 1 Univers am 500 mg 2-21 05-23 tablet by ity of tablet 00:00: 04:59 mouth in [place] 00 :00 the Medical morning Branch and 1 tablet in the evening. Do all this for 90 days. levETIRAcet 2022- No [id number] 500mg Take 1 Univers am 500 mg 11-01 tablet by ity of tablet 00:00: 04:59 mouth in [place] 00 :00 the [facility] ER and 1 tablet in the evening. Do all this for 90 days. levETIRAcet 0 2022- No [id number] 500mg Take 1 Univers am 500 mg 11-01 tablet by ity of tablet 00:00: 04:59 mouth in [place] 00 :00 the [facility] ER and 1 tablet in the evening. Do all this for 90 days. levETIRAcet 2022- No [id number] 500mg Take 1 Univers am 500 mg 11-01 tablet by ity of tablet 00:00: 04:59 mouth in [place] 00 :00 the [facility] ER and 1 tablet in the evening. Do all this for 90 days. levETIRAcet Yes 500mg 500 mg, Un teo am (KEPPRA) 2-20 Oral, BID, it y of tablet 500 02:00: First dose [place] mg 00 on [facility] 10/30/22 at [place] 1999, Until Discontinu ed, Routine morpHINE (2 Yes 2mg 2 mg, Slow Univers mg/mL) 2-17 IV Push, ity of injection 2 02:52: Q4HPRN, [place] mg 02 Starting Medical on [facility] 10/27/22 at 2051, Until Discontinu ed, Routine, Pain (scale 7-10) heparin Yes 5000U 5,000 Univers (porcine) 2-16 Units, ity of injection 20:00: Subcutaneo [place] 5,000 Units 00 us, Q8H, Medi joyce First dose Branch on [facility] 10/27/22 at 1400, Until Discontinu ed, Routine metoprolol 0 Yes 25mg 25 mg, Unive rs tartrate 2-16 Oral, BID, ity o f (LOPRESSOR) 02:00: First dose [place] tablet 25 00 on Wed Medical mg 10/26/22 at [place] 1999, Until Discontinu ed, Routine metoprolol 0 2022- No [id number] 25mg Take 1 Univers tartrate 25 2-16 -19 tablet by it y of mg tablet 00:00: 04:59 mouth in [place] 00 :00 the [facility] morning Branch and 1 tablet in the evening. Do all this for 30 days. metoprolol 2022- No [id number] 25mg Take 1 Univers tartrate 25 2-16 -19 tablet by it y of mg tablet 00:00: 04:59 mouth in [place] 00 :00 the [facility] morning Branch and 1 tablet in the evening. Do all this for 30 days. metoprolol 2022-0 2022- No [id number] 25mg Take 1 Univers tartrate 25 2-16 -19 tablet by it y of mg tablet 00:00: 04:59 mouth in [place] 00 :00 the [facility] morning Branch and 1 tablet in the evening. Do all this for 30 days. KCL 2022- No 40meq 40 mEq, Univers (KLOR-CON 10-26 Oral, ity of M20) tablet 05:45: 05:18 ONCE, 1 [place] 40 mEq 00 :00 dose, On [facility] 10/25/22 at 2345, Routine magnesium 2022- No 2g 2 g, IV Univ ers sulfate in 10-26 Piggyback, it y of water 2 05:45: 06:20 Administer [place] gram/50 mL 00 :00 over 60 Medica l (4 %) Minutes, Branch infusion 2 ONCE, 1 g dose, On [facility] 10/25/22 at 2345, Routine simvastatin Yes 20mg 20 mg, Univ ers (ZOCOR) 2-15 Oral, QHS, ity of tablet 20 03:00: First dose [place] mg 00 on [facility] 10/25/22 at Branch 2100, Until Discontinu ed, Routine amLODIPine 2022-0 Yes 5mg 5 mg, Univer s (NORVASC) 2-15 Oral, QHS, ity of tablet 5 mg 03:00: First dose [place] 00 on [facility] 10/25/22 at Branch 2100, Until Discontinu ed, Routine phytonadion 2022- No 10mg IV Unive rs e (VITAMIN 2-14 02-14 Piggyback, it y of K) 10 mg in 16:45: 18:08 ONCE, 1 [place] NaCl 0.9% 00 :00 dose, On Medica l (NS) [facility] piggyback 10/25/22 at 1045, 50 mL NaCl 0.9% 2023-0 Yes 1000mL at 75 Unive rs (NS) IV 2-14 mL/hr, IV ity of infusion 16:00: Infusion, [place] 1,000 mL 00 CONTINUOUS Medic al , Starting Branch on 10/25/22 at 1000, Until Discontinu ed, Routine NaCl 0.9% 2023-0 Yes 10mL 10 mL, Univer s (NS) 2-14 Slow IV ity of injection 15:49: Push, PRN, [place] 10 mL 01 Starting Medical on [facility] 10/25/22 at 0949, Until Discontinu ed, Routine, line maintenanc e lidocaine 2022-0 Yes 5mL 5 mL, Univers 1% (PF) 2-14 Subcutaneo ity of (XYLOCAINE) 15:49: us, PRN, [place] injection 5 01 Starting Medi joyce mL on [facility] 10/25/22 at 0949, Until Discontinu ed, Routine, Local anesthesia tamsulosin 2022-0 Yes .4mg 0.4 mg, Univ ers (FLOMAX) 2-14 Oral, ity of capsule 0.4 15:00: DAILY, [place] mg 00 First dose Medical on [facility] 10/25/22 at 0900, Until Discontinu ed, Routine pantoprazol 2022-0 Yes 40mg 40 mg, Univ ers e 2-14 Oral, ity of (PROTONIX) 15:00: DAILY, [place] EC tablet 00 First dose Medi joyce 40 mg on [facility] 10/25/22 at 0900, Until Discontinu ed, Routine FLUoxetine 3-0 Yes 20mg 20 mg, Unive rs (PROZAC) 2-14 Oral, ity of capsule 20 15:00: DAILY, [place] mg 00 First dose Medical on [facility] 10/25/22 at 0900, Until Discontinu ed, Routine metFORMIN 2023-0 Yes 500mg 500 mg, Univ ers (GLUCOPHAGE 2-14 Oral, BID ity of ) tablet 14:00: MEALS, [place] 500 mg 00 First dose Medical on [facility] 10/25/22 at 0800, Until Discontinu ed, Routine memantine Yes 10mg 10 mg, Univer s (NAMENDA) 2-14 Oral, BID, ity of tablet 10 14:00: First dose [place] mg 00 on [facility] 10/25/22 at Branch 0800, Until Discontinu ed, Routine
modular set crew member approving Restricted medication : JARVIS SHARP lisinopriL Yes 20mg 20 mg, Unive rs (PRINIVIL,Z 2-14 Oral, BID, it y of ESTRIL) 14:00: First dose [place] tablet 20 00 on [facility] mg 10/25/22 at Branch 0800, Until Discontinu ed, Routine gabapentin Yes 200mg 200 mg, Uni vers (NEURONTIN) 14 Oral, TID, it y of capsule 200 14:00: First dose [place] mg 00 on [facility] 10/25/22 at Branch 0800, Until Discontinu ed, Routine levETIRAcet 2022- No 500mg 500 mg, IV Univers am (KEPPRA) 10-25 Piggyback, i ty of in NACL 14:00: 01:39 Q12H, [place] (ISO-OS) 00 :32 First dose Medic al 500 mg/100 on [facility] mL RTU 10/25/22 at 0800, Until Discontinu ed, Administer over 15 Minutes, 100 mL carvediloL 2022- No 6.25mg 6.25 mg, Univers (COREG) 10-25 Oral, BID ity of tablet 6.25 14:00: 21:58 MEALS, [place] mg 00 :13 First dose Medical on [facility] 10/25/22 at 0800, Until Discontinu ed, Routine Sliding Yes Subcutaneo Univ ers Scale -14 us, AC+HS, ity of Insulin-Reg 13:30: First dose [place] ular + [facility] Branch 0730, Until Discontinu ed, Routine iopamidol 2022- No [id number] 80mL 80 mL, U nivers (ISOVUE 2-14 02-14 Intravenou ity o f 370-500 mL) 10:15: 10:30 s, ONCE, 1 [place] injection 00 :00 dose, On Medica l 80 mL [facility] 10/25/22 at 0430, Routine sodium 2022-0 Yes 1g 1 g, Oral, Unive rs chloride 2-14 TID MEALS, ity o f tablet 1 g 10:00: First dose [place] 00 (after Medical last Branch modificati on) on [facility] 10/25/22 at 0400, Until Discontinu ed, Routine niCARdipine 2022-0 Yes 2.5mg/h 2.5-15 U nivers (CARDENE 2-14 mg/hr ity of I.V.) 40 mg 08:01: (12.5-75 [place] in NaCL 200 04 mL/hr), IV Me dical mL (RTU) Infusion, Branch infusion TITRATE, SBP Goal < 180 mmHg, Starting on [facility] 10/25/22 at 0201
In itiate infusion at 2.5 mg/hr.&nbs p; Ti trate by 2.5 mg/hr every 5 minutes to 15 minutes as needed to achieve and maintain goal blood pressure. Maximum dose = 15 mg/hr. If goal not maintained at maximum allowed dose, contact prescriber .
LORazepam 2022-0 Yes 2mg 2 mg, Slow Un teo (ATIVAN) 2-14 IV Push, ity of injection 2 07:36: TIDPRN, [place] as mg 08 Starting Medical on [facility] 10/25/22 at 0136, Until Discontinu ed, Routine, Agitation, Sedation polyethylen 2022-0 Yes 17g 17 g, Unive rs e glycol 2-14 Oral, ity of 3350 powder 07:18: QDAILYPRN, [place] 17 g 09 Starting Medical on [facility] 10/25/22 at 0118, Until Discontinu ed, Routine, Constipati [...] 00 Starting Medical injection 1 on Mon Branch mg 10/25/22 at 0107, Until Discontinu ed, YOKO, [...] IV Push, ity of (PF)) 06:56: Q6HPRN, [place] injection 4 23 Starting Medi joyce mg on [facility] Branch 10/25/22 at 0056, Until Discontinu ed, Routine, Nausea and Vomiting (N/V) acetaminoph 2022-0 Yes 650mg 650 mg, Un teo en 2-14 Oral, ity of (TYLENOL) 06:55: Q6HPRN, [place] tablet 650 49 Starting Medic al mg on Tue Branch 10/25/22 at 0055, Until Discontinu ed, Routine, Pain (scale 1-3) cefTRIAXone 2022-0 2023- No 1000mg 1,000 mg, Univers (ROCEPHIN) 10-25 IV ity of 1,000 mg in 01:00: 01:42 Piggyback, [place] NaCl 0.9% 00 :00 ONCE, 1 Medical (NS) 50 mL dose, On Bran h MINI-BAG [facility] 10/24/22 at 1900, Administer over 30 Minutes, 50 mL
Reas on for Anti-Infec tive: Documented Infection< br>Documen timur Infection Site: Urine<br&g t;Duration of Therapy: Other (see Comments) LORazepam 0 2022- No 1mg 1 mg, Slow U nivers (ATIVAN) 10-25 IV Push, ity of injection 1 01:00: 01:09 ONCE, 1 [place] mg 00 :00 dose, On Medical [facility] Branch 10/24/22 at 1900, STAT amLODIPine 2022-0 Yes 5mg Take 5 mg Un teo 5 mg tablet 10-08 by mouth ity of 13:19: at [place] [address] bedtime. Medical Branch aspirin 81 2022-0 Yes 81mg Take 81 mg U nivers mg EC 10-08 by mouth ity of tablet 13:19: in the [place] [address] morning. Medical Branch lisinopriL 2022-0 Yes 20mg Take 20 mg U nivers 20 mg 10-08 by mouth ity of tablet 13:19: in the [place] [address] morning Medical and 20 mg Branch in the evening. metFORMIN 2022-0 Yes 500mg Take 500 Uni vers 500 mg 1-28 mg by ity of tablet 13:19: mouth in [place] [address] the Medical morning Branch and 500 mg in the evening. Take with meals. pantoprazol 2022-0 Yes 40mg Take 40 mg Univers e 10-08 by mouth ity of (PROTONIX) 13:19: in the [place] 20 mg EC 28 morning. Medical tablet Branch tamsulosin 2022-0 Yes Take by [facility] ers (FLOMAX) 10-08 mouth ity of 0.4 mg 24 13:19: daily. [place] hr capsule 28 Medical Branch FLUoxetine 3-0 Yes 20mg Take 20 mg U nivers 20 mg 10-08 by mouth ity of capsule 13:19: in the [place] [address] morning. Medical Branch gabapentin 3-0 Yes 300mg Take 300 Un teo 300 mg - mg by ity of capsule 13:19: mouth 2 [place] [address] (two) Medical times Branch daily as needed. levETIRAcet 2023-0 Yes 250mg Take 250 U nivers am (KEPPRA) - mg by ity of 250 mg 13:19: mouth in [place] tablet 28 the Medical morning Branch and 250 mg in the evening. memantine 3-0 Yes 10mg Take 10 mg Un teo 10 mg 10-08 by mouth ity of tablet 13:19: in the [place] [address] morning Medical and 10 mg Branch in the evening. simvastatin 3-0 Yes 20mg Take 20 mg Univers 20 mg 10-08 by mouth ity of tablet 13:19: at [place] [address] bedtime. Medical Branch amLODIPine 2022-0 Yes 5mg Take 5 mg Un teo 5 mg tablet 10-08 by mouth ity of 13:19: at [place] [address] bedtime. Medical Branch aspirin 81 2022-0 Yes 81mg Take 81 mg U nivers mg EC 10-08 by mouth ity of tablet 13:19: in the [place] [address] morning. Medical Branch lisinopriL 2022-0 Yes 20mg Take 20 mg U nivers 20 mg 10-08 by mouth ity of tablet 13:19: in the [place] [address] morning Medical and 20 mg Branch in the evening. metFORMIN 3-0 Yes 500mg Take 500 Uni vers 500 mg - mg by ity of tablet 13:19: mouth in [place] [address] the Medical morning Branch and 500 mg in the evening. Take with meals. pantoprazol 3-0 Yes 40mg Take 40 mg Univers e 10-08 by mouth ity of (PROTONIX) 13:19: in the [place] 20 mg EC morning. Medical tablet Branch tamsulosin 2022-0 Yes Take by [facility] ers (FLOMAX) 10-08 mouth ity of 0.4 mg 24 13:19: daily. [place] hr capsule 28 Medical Branch FLUoxetine 3-0 Yes 20mg Take 20 mg U nivers 20 mg 10-08 by mouth ity of capsule 13:19: in the [place] [address] morning. Medical Branch gabapentin 2022-0 Yes 300mg Take 300 Un teo 300 mg 1- mg by ity of capsule 13:19: mouth 2 [place] [address] (two) Medical times Branch daily as needed. levETIRAcet 2022-0 Yes 250mg Take 250 U nivers am (KEPPRA) - mg by ity of 250 mg 13:19: mouth in [place] tablet 28 the Medical morning Branch and 250 mg in the evening. memantine 2022-0 Yes 10mg Take 10 mg Un teo 10 mg 10-08 by mouth ity of tablet 13:19: in the [place] [address] morning Medical and 10 mg Branch in the evening. simvastatin 2022-0 Yes 20mg Take 20 mg Univers 20 mg 10-08 by mouth ity of tablet 13:19: at [place] [address] bedtime. Medical Branch amLODIPine 2022-0 Yes 5mg Take 5 mg Un teo 5 mg tablet 10-08 by mouth ity of 13:19: at [place] [address] bedtime. Medical Branch aspirin 81 2022-0 Yes 81mg Take 81 mg U nivers mg EC 10-08 by mouth ity of tablet 13:19: in the [place] [address] morning. Medical Branch lisinopriL 2022-0 Yes 20mg Take 20 mg U nivers 20 mg 10-08 by mouth ity of tablet 13:19: in the [place] [address] morning Medical and 20 mg Branch in the evening. metFORMIN 2022-0 Yes 500mg Take 500 Uni vers 500 mg 1-28 mg by ity of tablet 13:19: mouth in [place] [address] the Medical morning Branch and 500 mg in the evening. Take with meals. pantoprazol 2022-0 Yes 40mg Take 40 mg Univers e 10-08 by mouth ity of (PROTONIX) 13:19: in the [place] 20 mg EC morning. Medical tablet Branch tamsulosin 2022-0 Yes Take by [facility] ers (FLOMAX) 10-08 mouth ity of 0.4 mg 24 13:19: daily. [facility] Medical Branch FLUoxetine 2022-0 Yes 20mg Take 20 mg U nivers 20 mg 10-08 by mouth ity of capsule 13:19: in the [place] [address] morning. Medical Branch gabapentin 2022-0 Yes 300mg Take 300 Un teo 300 mg 1-28 mg by ity of capsule 13:19: mouth 2 [place] [address] (two) Medical times Branch daily as needed. levETIRAcet Yes 250mg Take 250 U nivers am (KEPPRA) 10-08 mg by ity of 250 mg 13:19: mouth in [facility] 28 the Medical morning Branch and 250 mg in the evening. memantine Yes 10mg Take 10 mg Un teo 10 mg 10-08 by mouth ity of tablet 13:19: in the [place] morning Medical and 10 mg Branch in the evening. simvastatin 0 Yes 20mg Take 20 mg Univers 20 mg 10-08 by mouth ity of tablet 13:19: at [place] [address] bedtime. Medical Branch Sliding 2022-0 Yes Subcutaneo Univ ers Scale 10-08 , TID ity of Insulin - 03:45: MEALS+HS, [place] as Lispro 00 First dose Medical (HumaLOG) + (after Branch Fsbg last Testing modificati on) on Mon10/07/22 at 2145, Until Discontinu ed, Routine melatonin Yes 3mg 3 mg, Univers (MELATIN) 10-08 Oral, QHS, ity of tablet 3 mg 03:45: First dose [place] 00 on Mon [facility] 10/07/22 at Branch 2145, Until Discontinu ed, Routine Sliding 2022-2022- No Subcutaneo Uni vers Scale 10-08 , TID ity of Insulin - 03:45: 21:19 MEALS+HS, [place] Lispro 00 :30 First dose Medical (HumaLOG) + (after Branch Fsbg last Testing modificati on) on Mon10/07/22 at 2145, Until Discontinu ed, Routine melatonin 2022-0 2022- No 3mg 3 mg, Univer s (MELATIN) 10-08 Oral, QHS, ity of tablet 3 mg 03:45: 21:19 First dose [place] 00 :30 on Mon [facility] 10/07/22 at Branch 2145, Until Discontinu ed, Routine dextrose 2022-0 Yes 250mL 250 mL, IV Un teo 10% (D10W) 10-08 Infusion, ity of bolus 03:32: PRN - SEE [place] infusion 30 INSTRUCTIO Medic al 250 mL [...] to swallow or has mental changes. dextrose 2022- No 250mL 250 mL, IV U nivers 10% (D10W) 10-08 Infusion, ity of bolus 03:32: 21:19 PRN - SEE [place] infusion 30 :30 INSTRUCTIO Medic al 250 [...] 2022- No 1mg 1 mg, Univers (GLUCAGEN 1-28 01-28 Intramuscu ity of DIAGNOSTIC 03:32: 21:19 lar, PRN, [place] KIT) 30 :30 Starting Medical injection 1 on Fri Branch mg 10/07/22 at 2132, Until 10/08/22 at 1519, YOKO, Blood Glucose < or = 70 mg/dL and patient is NPO, unable to swallow or has mental changes. sennosides- 2022-0 Yes 1{tbl} 1 tablet, Univers docusate 10-07 Oral, ity of sodium 15:00: DAILY, [place] (SENOKOT-S) 00 First dose Me dical 8.6-50 [...] 0900, Until Discontinu ed, Routine aspirin EC 2022-0 Yes 81mg 81 mg, Unive rs tablet 81 10-07 Oral, ity of mg 15:00: DAILY, [place] 00 First dose Medical on Mon Branch 10/07/22 at 0900, Until Discontinu ed, Routine sennosides- 3-0 2023- No 1{tbl} 1 tablet, Univers docusate 10-07 Oral, ity of sodium 15:00: 21:19 DAILY, [place] (SENOKOT-S) 00 :30 First dose Me dical 8.6-50 mg on Mon Branch per tablet 10/07/22 at 1 tablet 0900, Until Discontinu ed, Routine tamsulosin 2022-0 202- No .4mg 0.4 mg, Uni vers (FLOMAX) [...] Until Discontinu ed, Routine hydralAZINE 2022- No [id number] 10mg 10 mg, Univers (APRESOLINE 10-07 Slow IV ity of ) injection 12:15: 11:26 [place], [place] 10 mg 00 :00 ONCE, 1 Medical dose, On Branch Mon10/07/22 at 0615, STAT hydralAZINE 2022- No [id number] 10mg 10 mg, Univers (APRESOLINE 10-07 Slow IV ity of ) injection 12:15: 11:26 [place], [place] 10 mg 00 :00 ONCE, 1 Medical dose, On Branch Mon10/07/22 at 0615, STAT simvastatin 2022-0 Yes 20mg 20 mg, Univ ers (ZOCOR) 10-07 Oral, QHS, ity of tablet 20 03:00: First dose [place] mg 00 on [facility] 10/06/22 at Branch 2100, Until Discontinu ed, Routine amLODIPine 0 Yes 5mg 5 mg, Univer s (NORVASC) 10-07 Oral, QHS, ity of tablet 5 mg 03:00: First dose [place] 00 on [facility] 10/06/22 at [place] 2099, Until Discontinu ed, Routine simvastatin 2022- No 20mg 20 mg, Uni vers (ZOCOR) 10-07 Oral, QHS, ity o f tablet 20 03:00: 21:19 First dose [place] mg 00 :30 on [facility] 10/06/22 at [place] 2099, Until Discontinu ed, Routine amLODIPine 2022- No 5mg 5 mg, Unive rs (NORVAS) 10-07 Oral, QHS, ity of tablet 5 mg 03:00: 21:19 First dose [place] 00 :30 on [facility] 10/06/22 at [place] 2099, Until Discontinu ed, Routine levETIRAcet Yes 250mg 250 mg, Un teo am (KEPPRA) 10-07 Oral, BID, it y of tablet 250 02:00: First dose [place] mg 00 on [facility] 10/06/22 at [place] 1999, Until Discontinu ed, Routine levETIRAcet 2022- No 250mg 250 mg, U nivers am (KEPPRA) 10-07 Oral, BID, i ty of tablet 250 02:00: 21:19 First dose [place] mg 00 :30 on [facility] 10/06/22 at [place] 1999, Until Discontinu ed, Routine carvediloL 2022- No [id number] 6.25mg Take 1 Univers 6.25 mg 10-07 tablet by ity of tablet 00:00: 05:59 mouth in [place] 00 :00 the [facility] morning Branch and 1 tablet in the evening. Take with meals. Do all this for 30 days. carvediloL 2022- No [id number] 6.25mg Take 1 Univers 6.25 mg 10-07 tablet by ity of tablet 00:00: 05:59 mouth in [place] 00 :00 the Medical morning Branch and 1 tablet in the evening. Take with meals. Do all this for 30 days. carvediloL 2022- No [id number] 6.25mg Take 1 Univers 6.25 mg 10-07-27 tablet by ity of tablet 00:00: 05:59 mouth in [place] 00 :00 the Medical morning Branch and 1 tablet in the evening. Take with meals. Do all this for 30 days. carvediloL 2022-2022- No [id number] 6.25mg Take 1 Univers 6.25 mg 10-07 02-16 tablet by ity of tablet 00:00: 00:00 mouth in [place] 00 :00 the Medical morning Branch and 1 tablet in the evening. Take with meals. Do all this for 30 days. lactated 2022-0 2022- No 500mL at 200 Unive rs ringers IV 10-06 mL/hr, 500 it y of infusion 20:15: 13:51 mL, [place] 500 mL 00 :00 Intravenou Medical s, ONCE, 1 Branch dose, On [facility] 10/06/22 at 1415, Routine lactated 2022-0 2022- No 500mL at 200 Unive rs ringers IV 10-06 mL/hr, 500 it y of infusion 20:15: 13:51 mL, [place] 500 mL 00 :00 Intravenou Medical s, ONCE, 1 Branch dose, On [place] 10/06/22 at 1415, Routine hydralAZINE 2022-2022- No 10mg 10 mg, Uni vers (APRESOLINE 10-06 Slow IV ity of ) injection 20:00: 19:15 Push, [place] 10 mg 00 :00 ONCE, 1 Medical dose, On Branch [facility] 10/06/22 at 1400, STAT hydralAZINE 2022-0 2022- No 10mg 10 mg, Uni vers (APRESOLINE 10-06 Slow IV ity of ) injection 20:00: 19:15 [place], [place] 10 mg 00 :00 ONCE, 1 Medical dose, On Branch [facility] 10/06/22 at 1400, STAT carvediloL Yes 6.25mg 6.25 mg, U reynaldoers (COREG) 10-06 Oral, BID ity of tablet 6.25 19:30: MEALS, [place] mg 00 First dose Medical (after Branch last modificati on) on [facility] 10/06/22 at 1330, Until Discontinu ed, Routine carvediloL 2022- No 6.25mg 6.25 mg, Univers [...] Medical mg last Branch modificati on) on [facility] 10/06/22 at 1145, Until Discontinu ed, Routine lisinopriL 2022- No 20mg 20 mg, Univ ers (PRINIVIL,Z 10-06 Oral, BID, i ty of ESTRIL) 17:45: 21:19 First dose [place] tablet 20 00 :30 (after Medical mg last Branch modificati on) on [facility] 10/06/22 at 1145, Until Discontinu ed, Routine acetaminoph 0 Yes 650mg 650 mg, Un teo en 10-06 Oral, ity of (TYLENOL) 17:33: Q6HPRN, [place] tablet 650 13 Starting Medic al mg on [facility] Branch 10/06/22 at 1133, Until Discontinu ed, Routine, Pain (scale 1-3) acetaminoph 2022- No 650mg 650 mg, U nivers en 10-06 Oral, ity of (TYLENOL) 17:33: 21:19 Q6HPRN, [place] tablet 650 13 :30 Starting Medic al mg on [facility] Branch 10/06/22 at 1133, Until 10/08/22 at 1519, Routine, Pain (scale 1-3) gabapentin 0 Yes 300mg 300 mg, Uni vers (NEURONTIN) 10-06 Oral, ity of capsule 300 17:30: BIDPRN, [place] mg 49 Starting Medical on [facility] Branch 10/06/22 at 1130, Until Discontinu ed, Routine, Pain (scale 4-6) gabapentin 0 2022- No 300mg 300 mg, Un teo (NEURONTIN) 10-06 Oral, ity of capsule 300 17:30: 21:19 BIDPRN, [place] mg 49 :30 Starting Medical on [facility] [facility] 10/06/22 at 1130, Until 10/08/22 at 1519, Routine, Pain (scale 4-6) hydralAZINE 2022-0 2022- No [id number] 10mg 10 mg, Univers (APRESOLINE 10-06 Slow IV ity of ) injection 17:30: 16:31 Push, [place] 10 mg 00 :00 ONCE, 1 Medical dose, On Branch [facility] 10/06/22 at 1130, STAT hydralAZINE 2022- No [id number] 10mg 10 mg, Univers (APRESOLINE 10-06 Slow IV ity of ) injection 17:30: 16:31 [place], [place] 10 mg 00 :00 ONCE, 1 Medical dose, On Branch [facility] 10/06/22 at 1130, STAT lidocaine 2022-2022- No ONCE INTRA U nivers 1% (PF) 10-06 PROCEDURE, ity o f (XYLOCAINE) 14:22: 15:52 Starting [place] injection 52 :21 on [facility] 10/06/22 at Branch 0822, Until [facility] 10/06/22 at 0952, Routine, CV Intraproce dure iodixanol 2022- No ONCE INTRA U nivers (VISIPAQUE 10-06 PROCEDURE, it y of 320-100 mL) 14:03: 15:52 Starting [place] injection 41 :21 on [facility] 10/06/22 at Branch 0803, Until [facility] 10/06/22 at 0952, Routine, CV Intraproce dure hydralAZINE 2022-0 2022- No [id number] 10mg Inject 0.5 Univers 20 mg/mL 10-06 mL ity of injection 00:00: 00:00 intravenou [place] 00 :00 sly once Medical now for 1 Branch dose. hydralAZINE 2022-0 2022- No [id number] 10mg Inject 0.5 Univers 20 mg/mL 10-06 mL ity of injection 00:00: 00:00 intravenou [place] 00 :00 sly once Medical now for 1 Branch dose. amitriptyli 2021-09- No [id number] 25mg Take 1 Univers ne 25 mg 0-23 10-31 tablet by ity o f tablet 00:00: 04:59 mouth at [place] 00 :00 bedtime Medical for 7 Branch days. amitriptyli 2021-09- No [id number] 25mg Take 1 Univers ne 25 mg 0-23 10-31 tablet by ity o f tablet 00:00: 04:59 mouth at [place] 00 :00 bedtime Medical for 7 Branch days. amitriptyli 2021-09- No [id number] 25mg Take 1 Univers ne 25 mg 0-23 10-31 tablet by ity o f tablet 00:00: 04:59 mouth at [place] 00 :00 bedtime Medical for 7 Branch days. amitriptyli 2021-09- No [id number] 25mg Take 1 Univers ne 25 mg 0-23 10-31 tablet by ity o f tablet 00:00: 04:59 mouth at [place] 00 :00 bedtime Medical for 7 Branch days. tamsulosin 2021-09 Yes .4mg 0.4 mg, Univ ers (FLOMAX) 0-16 Oral, QHS, ity o f capsule 0.4 02:00: First dose [place] mg 00 on [facility] 06/25/22 Branch at 2100, Until Discontinu ed, Routine amLODIPine 2021-09 Yes 5mg 5 mg, Univer s (NORVASC) 0-16 Oral, QHS, ity of tablet 5 mg 02:00: First dose [place] 00 on [facility] 06/25/22 Branch at 2100, Until Discontinu ed, Routine tamsulosin 2021-09 No .4mg 0.4 mg, Uni vers (FLOMAX) 0-16 10-15 Oral, QHS, ity of capsule 0.4 02:00: 21:09 First dose [place] mg 00 :41 on [facility] 06/25/22 Branch at 2100, Until Discontinu ed, Routine amLODIPine 2021-09- No 5mg 5 mg, Unive rs (NORVASC) 0-16 10-15 Oral, QHS, ity of tablet 5 mg 02:00: 21:09 First dose [place] 00 :41 on [facility] 06/25/22 Branch at 2100, Until Discontinu ed, Routine pantoprazol 2021-09- No [id number] 40mg Take 1 Univers e 0-16 01-15 tablet by ity of (PROTONIX) 00:00: 05:59 mouth in [place] 40 mg EC 00 :00 the Medical tablet morning Branch for 90 days. vitamin 2021-09- No [id number] 1000ug Take 1 U nivers B-12 1,000 0-16 01-15 tablet by ity of mcg tablet 00:00: 05:59 mouth in [place] 00 :00 the Medical morning Branch for 90 days. pantoprazol 2021-09- No [id number] 40mg Take 1 Univers e 0-16 01-15 tablet by ity of (PROTONIX) 00:00: 05:59 mouth in [place] 40 mg EC 00 :00 the Medical tablet morning Branch for 90 days. vitamin 2021-09- No [id number] 1000ug Take 1 U nivers B-12 1,000 0-16 01-15 tablet by ity of mcg tablet 00:00: 05:59 mouth in [place] 00 :00 the Medical morning Branch for 90 days. pantoprazol 2021-09- No [id number] 40mg Take 1 Univers e 0-16 01-15 tablet by ity of (PROTONIX) 00:00: 05:59 mouth in [place] 40 mg EC 00 :00 the Medical tablet morning Branch for 90 days. vitamin 2021-09- No [id number] 1000ug Take 1 U nivers B-12 1,000 0-16 01-15 tablet by ity of mcg tablet 00:00: 05:59 mouth in [place] 00 :00 the Medical morning Branch for 90 days. pantoprazol 2021-09- No [id number] 40mg Take 1 Univers e 0-16 01-15 tablet by ity of (PROTONIX) 00:00: 05:59 mouth in [place] 40 mg EC 00 :00 the Medical tablet morning Branch for 90 days. vitamin 2021-09- No [id number] 1000ug Take 1 U nivers B-12 1,000 0-16 01-15 tablet by ity of mcg tablet 00:00: 05:59 mouth in [place] 00 :00 the Medical morning Branch for 90 days. pantoprazol 2021-09- No [id number] 40mg Take 1 Univers e 0-16 01-15 tablet by ity of (PROTONIX) 00:00: 05:59 mouth in [place] 40 mg EC 00 :00 the Medical tablet morning Branch for 90 days. vitamin 2021-09- No [id number] 1000ug Take 1 U nivers B-12 1,000 0-16 01-15 tablet by ity of mcg tablet 00:00: 05:59 mouth in [place] 00 :00 the Medical morning Branch for 90 days. pantoprazol 2021-09- No [id number] 40mg Take 1 Univers e 0-16 01-15 tablet by ity of (PROTONIX) 00:00: 05:59 mouth in [place] 40 mg EC 00 :00 the Medical tablet morning Branch for 90 days. vitamin 2021-09- No [id number] 1000ug Take 1 U nivers B-12 1,000 0-16 01-15 tablet by ity of mcg tablet 00:00: 05:59 mouth in [place] 00 :00 the Medical morning Branch for 90 days. pantoprazol 2021-09- No [id number] 40mg Take 1 Univers e 0-16 01-15 tablet by ity of (PROTONIX) 00:00: 05:59 mouth in [place] 40 mg EC 00 :00 the Medical tablet morning Branch for 90 days. vitamin 2021-09- No [id number] 1000ug Take 1 U nivers B-12 1,000 0-16 01-15 tablet by ity of mcg tablet 00:00: 05:59 mouth in [place] 00 :00 the Medical morning Branch for 90 days. pantoprazol 2021-09- No [id number] 40mg Take 1 Univers e 0-16 01-15 tablet by ity of (PROTONIX) 00:00: 05:59 mouth in [place] 40 mg EC 00 :00 the Medical tablet morning Branch for 90 days. vitamin 2021-09- No [id number] 1000ug Take 1 U nivers B-12 1,000 0-16 01-15 tablet by ity of mcg tablet 00:00: 05:59 mouth in [place] 00 :00 the Medical morning Branch for 90 days. pantoprazol 2021-09- No [id number] 40mg Take 1 Univers e 0-16 01-15 tablet by ity of (PROTONIX) 00:00: 05:59 mouth in [place] 40 mg EC 00 :00 the Medical tablet morning Branch for 90 days. vitamin 2021-09- No [id number] 1000ug Take 1 U nivers B-12 1,000 0-16 01-15 tablet by ity of mcg tablet 00:00: 05:59 mouth in [place] 00 :00 the Medical morning Branch for 90 days. pantoprazol 2021-09- No [id number] 40mg Take 1 Univers e 0-16 01-15 tablet by ity of (PROTONIX) 00:00: 05:59 mouth in [place] 40 mg EC 00 :00 the Medical tablet morning Branch for 90 days. vitamin 2021-09- No [id number] 1000ug Take 1 U nivers B-12 1,000 0-16 01-15 tablet by ity of mcg tablet 00:00: 05:59 mouth in [place] 00 :00 the Medical morning Branch for 90 days. pantoprazol 2021-09- No [id number] 40mg Take 1 Univers e 0-16 01-15 tablet by ity of (PROTONIX) 00:00: 05:59 mouth in [place] 40 mg EC 00 :00 the Medical tablet morning Branch for 90 days. vitamin 2021-09- No [id number] 1000ug Take 1 U nivers B-12 1,000 0-16 01-15 tablet by ity of mcg tablet 00:00: 05:59 mouth in [place] 00 :00 the Medical morning Branch for 90 days. pantoprazol 2021-09- No [id number] 40mg Take 1 Univers e 0-16 01-15 tablet by ity of (PROTONIX) 00:00: 05:59 mouth in [place] 40 mg EC 00 :00 the Medical tablet morning Branch for 90 days. vitamin 2021-09- No [id number] 1000ug Take 1 U nivers B-12 1,000 0-16 01-15 tablet by ity of mcg tablet 00:00: 05:59 mouth in [place] 00 :00 the Medical morning Branch for 90 days. vitamin 2021-09 Yes 1000ug 1,000 mcg, Un teo B-12 0-15 Oral, ity of (CYANOCOBAL 14:00: DAILY, [place] CODY) 00 First dose Medical tablet (after Branch 1,000 mcg last modificati on) on [facility] 06/25/22 at 0900, Until Discontinu ed, Routine magnesium 2021-09- No 2g 2 g, IV Univ ers sulfate in 0-15 10-15 Piggyback, it y of water 2 14:00: 14:38 Administer [place] gram/50 mL 00 :00 over 60 Medica l (4 %) Minutes, Branch infusion 2 ONCE, 1 g dose, On [facility] 06/25/22 at 0900, Routine vitamin 2021-09- No 1000ug 1,000 mcg, U nivers B-12 0-15 10-15 Oral, ity of (CYANOCOBAL 14:00: 21:09 DAILY, [place] CODY) 00 :41 First dose Medical tablet (after Branch 1,000 mcg last modificati on) on [facility] 06/25/22 at 0900, Until Discontinu ed, Routine KCL 2021-09- No 40meq 40 mEq, Univers (KLOR-CON 0-15 10-15 Oral, ity of M20) tablet 13:45: 13:34 ONCE, 1 [place] 40 mEq 00 :00 dose, On [facility] 06/25/22 at 0845, Routine levETIRAcet 2021-09 Yes 250mg 250 mg, Un teo am (KEPPRA) 0-15 Oral, BID, it y of tablet 250 13:00: First dose [place] mg 00 on [facility] 06/25/22 Branch at 0800, Until Discontinu ed, Routine levETIRAcet 2021-09- No 250mg 250 mg, U nivers am (KEPPRA) 0-15 10-15 Oral, BID, i ty of tablet 250 13:00: 21:09 First dose [place] mg 00 :41 on [facility] 06/25/22 Branch at 0800, Until Discontinu ed, Routine PEPCID 20 2021-09- No prn Univers MG ORAL TAB 0-15 10-15 ity of 12:45: 00:00 [place] 24 :00 Medical [place] B COMPLEX 1 2021-09- No None Unive [...] 0-15 10-15 Entered ity of 12:45: 00:00 [place] 24 :00 Medical Branch M-VIT ORAL 2021-09- No None Univer s 0-15 10-15 Entered ity of 12:45: 00:00 [place] 24 :00 Medical Branch KCL 20 mEq 2021-09- No [id number] 40meq Take 2 Univers tablet 09-24 tablets by ity of 00:00: 05:59 mouth in [place] 00 :00 the Medical morning Branch for 90 days. metFORMIN 2021-09- No [id number] 500mg Take 1 Univers 500 mg 09-24 tablet by ity of tablet 00:00: 05:59 mouth in [place] 00 :00 the Medical morning Branch and 1 tablet in the evening. Take with meals. Do all this for 90 days. tamsulosin 2021-09- No [id number] .4mg Take 1 [facility] 0.4 mg 24 09-24 capsule by it[facility] of hr capsule 00:00: 05:59 mouth at [facility] 00 :00 bedtime Medical for 90 Branch days. amLODIPine 2021-09- No [id number] 5mg Take 1 [facility] 5 mg tablet 09-24 tablet by it y of 00:00: 05:59 mouth at [place] 00 :00 bedtime Medical for 90 Branch days. levETIRAcet 2021-09- No [id number] 250mg Take 1 [facility] am 250 mg 009-24 tablet by it[facility] of tablet 00:00: 05:59 mouth in [place] 00 :00 the Medical morning Branch and 1 tablet in the evening. Do all this for 90 days. lisinopriL 2021-09- No [id number] 20mg Take 1 [facility] 20 mg 0-15 -14 tablet by it[facility] of tablet 00:00: 05:59 mouth in [place] 00 :00 the Medical morning Branch and 1 tablet in the evening. Do all this for 90 days. FLUoxetine 2021-09- No [id number] 20mg Take 1 [facility] 20 mg 0-15 -14 capsule by it[facility] of capsule 00:00: 05:59 mouth in [place] 00 :00 the [facility] morning Branch for 90 days. memantine 2021-09- No [id number] 10mg Take 1 [facility] nivers 10 mg 0-15 -14 tablet by ity of tablet 00:00: 05:59 mouth in [place] 00 :00 the Medical morning Branch and 1 tablet in the evening. Do all this for 90 days. pyridostigm 2021-09- No [id number] 60mg Take 1 [facility] ine 60 mg 0-15 -14 tablet by ity of tablet 00:00: 05:59 mouth as [place] 00 :00 needed for Medical Other Branch (HYPOTENSI ON) for up to 90 days. simvastatin 2021-09- No [id number] 20mg Take 1 [facility] 20 mg 0-15 -14 tablet by it[facility] of tablet 00:00: 05:59 mouth at [place] 00 :00 bedtime Medical for 90 Branch days. aspirin 81 2021-09- No [id number] 81mg Take 1 [facility] mg chewable 0-15 -14 tablet by it y of tablet 00:00: 05:59 mouth in [place] 00 :00 the [facility] morning Branch for 90 days. KCL 20 mEq 2021-09- No [id number] 40meq Take 2 [facility] tablet 0-15 -14 tablets by ity of 00:00: 05:59 mouth in [place] 00 :00 the Medical morning Branch for 90 days. metFORMIN 2021-09- No [id number] 500mg Take 1 [facility] 500 mg 0-15 -14 tablet by it[facility] of tablet 00:00: 05:59 mouth in [place] 00 :00 the Medical morning Branch and 1 tablet in the evening. Take with meals. Do all this for 90 days. tamsulosin 2021-09- No [id number] .4mg Take 1 [facility] 0.4 mg 24 0-15 -14 capsule by ity of hr capsule 00:00: 05:59 mouth at [place] 00 :00 bedtime Medical for 90 Branch days. amLODIPine 2021-09- No [id number] 5mg Take 1 [facility] 5 mg tablet 009-24 tablet by it y of 00:00: 05:59 mouth at [place] 00 :00 bedtime Medical for 90 Branch days. levETIRAcet 2021-09- No [id number] 250mg Take 1 [facility] am 250 mg 0- tablet by ity of tablet 00:00: 05:59 mouth in [place] 00 :00 the Medical morning Branch and 1 tablet in the evening. Do all this for 90 days. lisinopriL 2021-09- No [id number] 20mg Take 1 [facility] 20 mg 0- tablet by it[facility] of tablet 00:00: 05:59 mouth in [place] 00 :00 the Medical morning Branch and 1 tablet in the evening. Do all this for 90 days. FLUoxetine 2021-09- No [id number] 20mg Take 1 [facility] 20 mg 0- capsule by ity of capsule 00:00: 05:59 mouth in [place] 00 :00 the Medical morning Branch for 90 days. memantine 2021-09- No [id number] 10mg Take 1 [facility] nivers 10 mg 009-24 tablet by ity of tablet 00:00: 05:59 mouth in [place] 00 :00 the Medical morning Branch and 1 tablet in the evening. Do all this for 90 days. pyridostigm 2021-09- No [id number] 60mg Take 1 [facility] ine 60 mg 0- tablet by ity of tablet 00:00: 05:59 mouth as [place] 00 :00 needed for Medical Other Branch (HYPOTENSI ON) for up to 90 days. simvastatin 2021-09- No [id number] 20mg Take 1 [facility] 20 mg 0-14 tablet by ity of tablet 00:00: 05:59 mouth at [place] 00 :00 bedtime Medical for 90 Branch days. aspirin 81 2021-09- No [id number] 81mg Take 1 [facility] mg chewable 0-25 09-14 tablet by it y of tablet 00:00: 05:59 mouth in [place] 00 :00 the Medical morning Branch for 90 days. KCL 20 mEq 2021-09- No [id number] 40meq Take 2 [facility] tablet 0-14 tablets by ity of 00:00: 05:59 mouth in [place] 00 :00 the [facility] morning [place] for 90 days. metFORMIN 2021-09- No [id number] 500mg Take 1 [facility] 500 mg 0-15 -14 tablet by ity of tablet 00:00: 05:59 mouth in [place] 00 :00 the Medical morning Branch and 1 tablet in the evening. Take with meals. Do all this for 90 days. tamsulosin 2021-09- No [id number] .4mg Take 1 [facility] 0.4 mg 24 009-24 capsule by ity of hr capsule 00:00: 05:59 mouth at [facility] 00 :00 bedtime Medical for 90 Branch days. amLODIPine 2021-09- No [id number] 5mg Take 1 [facility] 5 mg tablet 009-24 tablet by it y of 00:00: 05:59 mouth at [place] 00 :00 bedtime [facility] for 90 Branch days. levETIRAcet 2021-09- No [id number] 250mg Take 1 [facility] am 250 mg 09-24 tablet by ity of tablet 00:00: 05:59 mouth in [place] 00 :00 the [facility] morning [place] and 1 tablet in the evening. Do all this for 90 days. lisinopriL 2021-09- No [id number] 20mg Take 1 [facility] 20 mg 0- tablet by ity of tablet 00:00: 05:59 mouth in [place] 00 :00 the [facility] morning [place] and 1 tablet in the evening. Do all this for 90 days. FLUoxetine 2021-09- No [id number] 20mg Take 1 [facility] 20 mg 0- capsule by ity of capsule 00:00: 05:59 mouth in [place] 00 :00 the [facility] ER for 90 days. memantine 2021-09- No [id number] 10mg Take 1 [facility] nivers 10 mg 0-15 -14 tablet by ity of tablet 00:00: 05:59 mouth in [place] 00 :00 the [facility] morning [place] and 1 tablet in the evening. Do all this for 90 days. pyridostigm 2021-09- No [id number] 60mg Take 1 [facility] ine 60 mg 0-15 01-14 tablet by ity of tablet 00:00: 05:59 mouth as [place] 00 :00 needed for Medical Other Branch (HYPOTENSI ON) for up to 90 days. simvastatin 2021-09- No [id number] 20mg Take 1 [facility] 20 mg 009-24 tablet by ity of tablet 00:00: 05:59 mouth at [place] 00 :00 bedtime Medical for 90 Branch days. aspirin 81 2021-09- No [id number] 81mg Take 1 [facility] mg chewable 009-24 tablet by it y of tablet 00:00: 05:59 mouth in [place] 00 :00 the Medical morning Branch for 90 days. KCL 20 mEq 2021-09- No [id number] 40meq Take 2 [facility] tablet 009-24 tablets by ity of 00:00: 05:59 mouth in [place] 00 :00 the Medical morning Branch for 90 days. metFORMIN 2021-09- No [id number] 500mg Take 1 [facility] 500 mg 09-24 tablet by ity of tablet 00:00: 05:59 mouth in [place] 00 :00 the Medical morning Branch and 1 tablet in the evening. Take with meals. Do all this for 90 days. tamsulosin 2021-09- No [id number] .4mg Take 1 [facility] 0.4 mg 24 09-24 capsule by ity of hr capsule 00:00: 05:59 mouth at [facility] 00 :00 bedtime Medical for 90 Branch days. amLODIPine 2021-09- No [id number] 5mg Take 1 [facility] 5 mg tablet 09-24 tablet by it y of 00:00: 05:59 mouth at [place] 00 :00 bedtime Medical for 90 Branch days. levETIRAcet 2021-09- No [id number] 250mg Take 1 [facility] am 250 mg 009-24 tablet by ity of tablet 00:00: 05:59 mouth in [place] 00 :00 the Medical morning Branch and 1 tablet in the evening. Do all this for 90 days. lisinopriL 2021-09- No [id number] 20mg Take 1 [facility] 20 mg 009-24 tablet by ity of tablet 00:00: 05:59 mouth in [place] 00 :00 the Medical morning Branch and 1 tablet in the evening. Do all this for 90 days. FLUoxetine 2021-09- No [id number] 20mg Take 1 [facility] 20 mg 0-15 -14 capsule by ity of capsule 00:00: 05:59 mouth in [place] 00 :00 the Medical morning Branch for 90 days. memantine 2021-09- No [id number] 10mg Take 1 [facility] nivers 10 mg 0-15 -14 tablet by ity of tablet 00:00: 05:59 mouth in [place] 00 :00 the Medical morning Branch and 1 tablet in the evening. Do all this for 90 days. pyridostigm 2021-09- No [id number] 60mg Take 1 [facility] ine 60 mg 0-15 -14 tablet by ity of tablet 00:00: 05:59 mouth as [place] 00 :00 needed for Medical Other Branch (HYPOTENSI ON) for up to 90 days. simvastatin 2021-09- No [id number] 20mg Take 1 [facility] 20 mg 0-15 -14 tablet by ity of tablet 00:00: 05:59 mouth at [place] 00 :00 bedtime Medical for 90 Branch days. aspirin 81 2021-09- No [id number] 81mg Take 1 [facility] mg chewable 0-14 tablet by it y of tablet 00:00: 05:59 mouth in [place] 00 :00 the [facility] morning Branch for 90 days. KCL 20 mEq 2021-09- No [id number] 40meq Take 2 [facility] tablet 009-24 tablets by ity of 00:00: 05:59 mouth in [place] 00 :00 the Medical morning Branch for 90 days. metFORMIN 2021-09- No [id number] 500mg Take 1 [facility] 500 mg 0-15 -14 tablet by ity of tablet 00:00: 05:59 mouth in [place] 00 :00 the Medical morning Branch and 1 tablet in the evening. Take with meals. Do all this for 90 days. tamsulosin 2021-09- No [id number] .4mg Take 1 [facility] 0.4 mg 24 0-15 - capsule by ity of hr capsule 00:00: 05:59 mouth at [place] 00 :00 bedtime Medical for 90 Branch days. amLODIPine 2021-09- No [id number] 5mg Take 1 [facility] 5 mg tablet 0-15 01-14 tablet by it y of 00:00: 05:59 mouth at [place] 00 :00 bedtime Medical for 90 Branch days. levETIRAcet 2021-09- No [id number] 250mg Take 1 [facility] am 250 mg 0-09-24 tablet by ity of tablet 00:00: 05:59 mouth in [place] 00 :00 the Medical morning Branch and 1 tablet in the evening. Do all this for 90 days. lisinopriL 2021-09- No [id number] 20mg Take 1 [facility] 20 mg 0-09-24 tablet by ity of tablet 00:00: 05:59 mouth in [place] 00 :00 the Medical morning Branch and 1 tablet in the evening. Do all this for 90 days. FLUoxetine 2021-09- No [id number] 20mg Take 1 [facility] 20 mg 009-24 capsule by ity of capsule 00:00: 05:59 mouth in [place] 00 :00 the Medical morning Branch for 90 days. memantine 2021-09- No [id number] 10mg Take 1 [facility] nivers 10 mg 09-24 tablet by ity of tablet 00:00: 05:59 mouth in [place] 00 :00 the Medical morning Branch and 1 tablet in the evening. Do all this for 90 days. pyridostigm 2021-09- No [id number] 60mg Take 1 [facility] ine 60 mg 009-24 tablet by ity of tablet 00:00: 05:59 mouth as [place] 00 :00 needed for Medical Other Branch (HYPOTENSI ON) for up to 90 days. simvastatin 2021-09- No [id number] 20mg Take 1 [facility] 20 mg 009-24 tablet by ity of tablet 00:00: 05:59 mouth at [place] 00 :00 bedtime Medical for 90 Branch days. aspirin 81 2021-09- No [id number] 81mg Take 1 [facility] mg chewable 009-24 tablet by it y of tablet 00:00: 05:59 mouth in [place] 00 :00 the Medical morning Branch for 90 days. KCL 20 mEq 2021-09- No [id number] 40meq Take 2 [facility] tablet 009-24 tablets by ity of 00:00: 05:59 mouth in [place] 00 :00 the Medical morning Branch for 90 days. metFORMIN 2021-09- No [id number] 500mg Take 1 [facility] 500 mg 0-15 -14 tablet by ity of tablet 00:00: 05:59 mouth in [place] 00 :00 the Medical morning Branch and 1 tablet in the evening. Take with meals. Do all this for 90 days. tamsulosin 2021-09- No [id number] .4mg Take 1 [facility] 0.4 mg 24 0- capsule by ity of hr capsule 00:00: 05:59 mouth at [facility] 00 :00 bedtime Medical for 90 Branch days. amLODIPine 2021-09- No [id number] 5mg Take 1 [facility] 5 mg tablet 0- tablet by it y of 00:00: 05:59 mouth at [place] 00 :00 bedtime [facility] for 90 Branch days. levETIRAcet 2021-09- No [id number] 250mg Take 1 [facility] am 250 mg 0- tablet by ity of tablet 00:00: 05:59 mouth in [place] 00 :00 the Medical morning Branch and 1 tablet in the evening. Do all this for 90 days. lisinopriL 2021-09- No [id number] 20mg Take 1 [facility] 20 mg 0- tablet by ity of tablet 00:00: 05:59 mouth in [place] 00 :00 the Medical morning Branch and 1 tablet in the evening. Do all this for 90 days. FLUoxetine 2021-09- No [id number] 20mg Take 1 [facility] 20 mg 0- capsule by ity of capsule 00:00: 05:59 mouth in [place] 00 :00 the [facility] morning [place] for 90 days. memantine 2021-09- No [id number] 10mg Take 1 U nivers 10 mg 015 -14 tablet by ity of tablet 00:00: 05:59 mouth in [place] 00 :00 the Medical morning Branch and 1 tablet in the evening. Do all this for 90 days. pyridostigm 2021-09- No [id number] 60mg Take 1 [facility] ine 60 mg 0-15 -14 tablet by ity of tablet 00:00: 05:59 mouth as [place] 00 :00 needed for Medical Other Branch (HYPOTENSI ON) for up to 90 days. simvastatin 2021-09- No [id number] 20mg Take 1 [facility] 20 mg 0-15 -14 tablet by ity of tablet 00:00: 05:59 mouth at [place] 00 :00 bedtime Medical for 90 Branch days. aspirin 81 2021-09- No [id number] 81mg Take 1 [facility] mg chewable 0-15 -14 tablet by it y of tablet 00:00: 05:59 mouth in [place] 00 :00 the Medical morning Branch for 90 days. KCL 20 mEq 2021-09- No [id number] 40meq Take 2 [facility] tablet 0-15 -14 tablets by ity of 00:00: 05:59 mouth in [place] 00 :00 the Medical morning [place] for 90 days. metFORMIN 2021-09- No [id number] 500mg Take 1 [facility] 500 mg 0-15 - tablet by ity of tablet 00:00: 05:59 mouth in [place] 00 :00 the Medical morning Branch and 1 tablet in the evening. Take with meals. Do all this for 90 days. tamsulosin 2021-09- No [id number] .4mg Take 1 [facility] 0.4 mg 24 0-25 09- capsule by ity of hr capsule 00:00: 05:59 mouth at [facility] 00 :00 bedtime Medical for 90 Branch days. amLODIPine 2021-09- No [id number] 5mg Take 1 [facility] 5 mg tablet 0- tablet by it y of 00:00: 05:59 [facility] [place] [facility] levETIRAcet 2021-09- No [id number] 250mg Take 1 [facility] am 250 mg 0-09-24 tablet by ity of tablet 00:00: 05:59 mouth in [place] 00 :00 the Medical morning Branch and 1 tablet in the evening. Do all this for 90 days. lisinopriL 2021-09- No [id number] 20mg Take 1 [facility] 20 mg 0-15 -14 tablet by ity of tablet 00:00: 05:59 mouth in [place] 00 :00 the Medical morning Branch and 1 tablet in the evening. Do all this for 90 days. FLUoxetine 2021-09- No [id number] 20mg Take 1 [facility] 20 mg 0-15 -14 capsule by ity of capsule 00:00: 05:59 mouth in [place] 00 :00 the Medical morning Branch for 90 days. memantine 2021-09- No [id number] 10mg Take 1 U nivers 10 mg 009-24 tablet by ity of tablet 00:00: 05:59 mouth in [place] 00 :00 the Medical morning Branch and 1 tablet in the evening. Do all this for 90 days. pyridostigm 2021-09- No [id number] 60mg Take 1 [facility] ine 60 mg 009-24 tablet by ity of tablet 00:00: 05:59 mouth as [place] 00 :00 needed for Medical Other Branch (HYPOTENSI ON) for up to 90 days. simvastatin 2021-09- No [id number] 20mg Take 1 [facility] 20 mg 009-24 tablet by ity of tablet 00:00: 05:59 mouth at [place] 00 :00 bedtime Medical for 90 Branch days. aspirin 81 2021-09- No [id number] 81mg Take 1 [facility] mg chewable 09-24 tablet by it y of tablet 00:00: 05:59 mouth in [place] 00 :00 the [facility] morning [place] for 90 days. KCL 20 mEq 2021-09- No [id number] 40meq Take 2 [facility] tablet 09-24 tablets by ity of 00:00: 05:59 mouth in [place] 00 :00 the [facility] morning [place] for 90 days. metFORMIN 2021-09- No [id number] 500mg Take 1 [facility] 500 mg 009-24 tablet by ity of tablet 00:00: 05:59 mouth in [place] 00 :00 the Medical morning Branch and 1 tablet in the evening. Take with meals. Do all this for 90 days. tamsulosin 2021-09- No [id number] .4mg Take 1 [facility] 0.4 mg 24 09-24 capsule by ity of hr capsule 00:00: 05:59 mouth at [facility] 00 :00 bedtime Medical for 90 Branch days. amLODIPine 2021-09- No [id number] 5mg Take 1 [facility] 5 mg tablet 09-24 tablet by it y of 00:00: 05:59 mouth at [place] 00 :00 bedtime Medical for 90 Branch days. levETIRAcet 2021-09- No [id number] 250mg Take 1 [facility] am 250 mg 0-15 -14 tablet by ity of tablet 00:00: 05:59 mouth in [place] 00 :00 the Medical morning Branch and 1 tablet in the evening. Do all this for 90 days. lisinopriL 2021-09- No [id number] 20mg Take 1 [facility] 20 mg 0-15 -14 tablet by ity of tablet 00:00: 05:59 mouth in [place] 00 :00 the Medical morning Branch and 1 tablet in the evening. Do all this for 90 days. FLUoxetine 2021-09- No [id number] 20mg Take 1 [facility] 20 mg 0-15 -14 capsule by ity of capsule 00:00: 05:59 mouth in [place] 00 :00 the [facility] ER for 90 days. memantine 2021-09- No [id number] 10mg Take 1 U nivers 10 mg 0-15 -14 tablet by ity of tablet 00:00: 05:59 mouth in [place] 00 :00 the [facility] morning [place] and 1 tablet in the evening. Do all this for 90 days. pyridostigm 2021-09- No [id number] 60mg Take 1 [facility] ine 60 mg 0-15 -14 tablet by ity of tablet 00:00: 05:59 mouth as [place] 00 :00 needed for Medical Other Branch (HYPOTENSI ON) for up to 90 days. simvastatin 2021-09- No [id number] 20mg Take 1 [facility] 20 mg 0-15 -14 tablet by ity of tablet 00:00: 05:59 mouth at [place] 00 :00 bedtime Medical for 90 Branch days. aspirin 81 2021-09- No [id number] 81mg Take 1 [facility] mg chewable 0-15 -14 tablet by it y of tablet 00:00: 05:59 mouth in [place] 00 :00 the [facility] morning [place] for 90 days. metFORMIN 2021-09- No [id number] 500mg Take 1 [facility] 500 mg 0-15 -14 tablet by ity of tablet 00:00: 05:59 mouth in [place] 00 :00 the [facility] morning [place] and 1 tablet in the evening. Take with meals. Do all this for 90 days. tamsulosin 2021-09- No [id number] .4mg Take 1 [facility] 0.4 mg 24 0-15 01-14 capsule by ity of hr capsule 00:00: 05:59 mouth at [place] 00 :00 bedtime Medical for 90 Branch days. amLODIPine 2021-09- No [id number] 5mg Take 1 [facility] 5 mg tablet 0- tablet by it y of 00:00: 05:59 mouth at [place] 00 :00 bedtime Medical for 90 Branch days. levETIRAcet 2021-09- No [id number] 250mg Take 1 [facility] am 250 mg 009-24 tablet by ity of tablet 00:00: 05:59 mouth in [place] 00 :00 the Medical morning Branch and 1 tablet in the evening. Do all this for 90 days. lisinopriL 2021-09- No [id number] 20mg Take 1 [facility] 20 mg 0-09-24 tablet by ity of tablet 00:00: 05:59 mouth in [place] 00 :00 the Medical morning Branch and 1 tablet in the evening. Do all this for 90 days. FLUoxetine 2021-09- No [id number] 20mg Take 1 [facility] 20 mg 009-24 capsule by ity of capsule 00:00: 05:59 mouth in [place] 00 :00 the Medical morning Branch for 90 days. memantine 2021-09- No [id number] 10mg Take 1 U nivers 10 mg 009-24 tablet by ity of tablet 00:00: 05:59 mouth in [place] 00 :00 the Medical morning Branch and 1 tablet in the evening. Do all this for 90 days. pyridostigm 2021-09- No [id number] 60mg Take 1 [facility] ine 60 mg 009-24 tablet by ity of tablet 00:00: 05:59 mouth as [place] 00 :00 needed for Medical Other Branch (HYPOTENSI ON) for up to 90 days. simvastatin 2021-09- No [id number] 20mg Take 1 [facility] 20 mg 0-15 -14 tablet by ity of tablet 00:00: 05:59 mouth at [place] 00 :00 bedtime Medical for 90 Branch days. aspirin 81 2021-09- No [id number] 81mg Take 1 [facility] mg chewable 0-25 09- tablet by it y of tablet 00:00: 05:59 mouth in [place] 00 :00 the Medical morning Branch for 90 days. KCL 20 mEq 2021-09- No [id number] 40meq Take 2 [facility] tablet 009-24 tablets by ity of 00:00: 05:59 mouth in [place] 00 :00 the [facility] ER for 90 days. metFORMIN 2021-09- No [id number] 500mg Take 1 [facility] 500 mg 0- tablet by ity of tablet 00:00: 05:59 mouth in [place] 00 :00 the [facility] ER and 1 tablet in the evening. Take with meals. Do all this for 90 days. tamsulosin 2021-09- No [id number] .4mg Take 1 [facility] 0.4 mg 24 09-24 capsule by ity of hr capsule 00:00: 05:59 mouth at [facility] 00 :00 bedtime [facility] for 90 Branch days. amLODIPine 2021-09- No [id number] 5mg Take 1 [facility] 5 mg tablet 09-24 tablet by it y of 00:00: 05:59 mouth [facility] [place] [facility] levETIRAcet 2021-09- No [id number] 250mg Take 1 [facility] am 250 mg 09-24 tablet by ity of tablet 00:00: 05:59 mouth in [place] 00 :00 [facility] and 1 tablet in the evening. Do all this for 90 days. lisinopriL 2021-09- No [id number] 20mg Take 1 [facility] 20 mg 009-24 tablet by ity of tablet 00:00: 05:59 mouth in [place] 00 :00 [facility] and 1 tablet in the evening. Do all this for 90 days. FLUoxetine 2021-09- No [id number] 20mg Take 1 [facility] 20 mg 0- capsule by ity of capsule 00:00: 05:59 mouth in [place] 00 :00 [facility] for 90 days. memantine 2021-09- No [id number] 10mg Take 1 U nivers 10 mg 009-24 tablet by ity of tablet 00:00: 05:59 mouth in [place] 00 :00 the [facility] ER and 1 tablet in the evening. Do all this for 90 days. pyridostigm 2021-09- No [id number] 60mg Take 1 [facility] ine 60 mg 0-15 -14 tablet by ity of tablet 00:00: 05:59 mouth as [place] 00 :00 needed for Medical Other Branch (HYPOTENSI ON) for up to 90 days. simvastatin 2021-09- No [id number] 20mg Take 1 [facility] 20 mg 0-15 -14 tablet by ity of tablet 00:00: 05:59 mouth at [place] 00 :00 bedtime Medical for 90 Branch days. aspirin 81 2021-09- No [id number] 81mg Take 1 [facility] mg chewable 0-15 -14 tablet by it y of tablet 00:00: 05:59 mouth in [place] 00 :00 the Medical morning Branch for 90 days. KCL 20 mEq 2021-09- No [id number] 40meq Take 2 [facility] tablet 009-24 tablets by ity of 00:00: 05:59 mouth in [place] 00 :00 the Medical morning Branch for 90 days. metFORMIN 2021-09- No [id number] 500mg Take 1 [facility] 500 mg 009-24 tablet by ity of tablet 00:00: 05:59 mouth in [place] 00 :00 the Medical morning Branch and 1 tablet in the evening. Take with meals. Do all this for 90 days. tamsulosin 2021-09- No [id number] .4mg Take 1 [facility] 0.4 mg 24 009-24 capsule by ity of hr capsule 00:00: 05:59 mouth at [facility] 00 :00 bedtime Medical for 90 Branch days. amLODIPine 2021-09- No [id number] 5mg Take 1 [facility] 5 mg tablet 009-24 tablet by it y of 00:00: 05:59 mouth at [place] 00 :00 bedtime Medical for 90 Branch days. levETIRAcet 2021-09- No [id number] 250mg Take 1 [facility] am 250 mg 0- tablet by ity of tablet 00:00: 05:59 mouth in [place] 00 :00 the Medical morning Branch and 1 tablet in the evening. Do all this for 90 days. lisinopriL 2021-09- No [id number] 20mg Take 1 [facility] 20 mg 0-15 -14 tablet by ity of tablet 00:00: 05:59 mouth in [place] 00 :00 the Medical morning Branch and 1 tablet in the evening. Do all this for 90 days. FLUoxetine 2021-09- No [id number] 20mg Take 1 [facility] 20 mg 0-15 -14 capsule by ity of capsule 00:00: 05:59 mouth in [place] 00 :00 the [facility] morning Branch for 90 days. memantine 2021-09- No [id number] 10mg Take 1 U nivers 10 mg 0-15 -14 tablet by ity of tablet 00:00: 05:59 mouth in [place] 00 :00 the Medical morning Branch and 1 tablet in the evening. Do all this for 90 days. pyridostigm 2021-09- No [id number] 60mg Take 1 [facility] ine 60 mg 0-15 - tablet by ity of tablet 00:00: 05:59 mouth as [place] 00 :00 needed for Medical Other Branch (HYPOTENSI ON) for up to 90 days. simvastatin 2021-09- No [id number] 20mg Take 1 [facility] 20 mg 0-25 09- tablet by ity of tablet 00:00: 05:59 mouth at [place] 00 :00 bedtime Medical for 90 Branch days. aspirin 81 2021-09- No [id number] 81mg Take 1 [facility] mg chewable 009-24 tablet by it y of tablet 00:00: 05:59 mouth in [place] 00 :00 the [facility] morning [place] for 90 days. KCL 20 mEq 2021-09- No [id number] 40meq Take 2 [facility] tablet 009-24 tablets by ity of 00:00: 05:59 mouth in [place] 00 :00 the [facility] morning [place] for 90 days. metFORMIN 2021-09- No [id number] 500mg Take 1 [facility] 500 mg 015 -14 tablet by ity of tablet 00:00: 05:59 mouth in [place] 00 :00 the Medical morning Branch and 1 tablet in the evening. Take with meals. Do all this for 90 days. tamsulosin 2021-09- No [id number] .4mg Take 1 [facility] 0.4 mg 24 0-15 - capsule by ity of hr capsule 00:00: 05:59 mouth at [place] 00 :00 bedtime Medical for 90 Branch days. amLODIPine 2021-09- No [id number] 5mg Take 1 [facility] 5 mg tablet 0-25 09-14 tablet by it y of 00:00: 05:59 mouth at [place] 00 :00 bedtime Medical for 90 Branch days. levETIRAcet 2021-09- No [id number] 250mg Take 1 [facility] am 250 mg 0-15 -14 tablet by ity of tablet 00:00: 05:59 mouth in [place] 00 :00 the Medical morning Branch and 1 tablet in the evening. Do all this for 90 days. lisinopriL 2021-09- No [id number] 20mg Take 1 [facility] 20 mg 0-15 -14 tablet by ity of tablet 00:00: 05:59 mouth in [place] 00 :00 the Medical morning Branch and 1 tablet in the evening. Do all this for 90 days. FLUoxetine 2021-09- No [id number] 20mg Take 1 [facility] 20 mg 0-15 -14 capsule by ity of capsule 00:00: 05:59 mouth in [place] 00 :00 the Medical morning Branch for 90 days. memantine 2021-09- No [id number] 10mg Take 1 U nivers 10 mg 0-15 -14 tablet by ity of tablet 00:00: 05:59 mouth in [place] 00 :00 the Medical morning Branch and 1 tablet in the evening. Do all this for 90 days. pyridostigm 2021-09- No [id number] 60mg Take 1 [facility] ine 60 mg 0-15 -14 tablet by ity of tablet 00:00: 05:59 mouth as [place] 00 :00 needed for Medical Other Branch (HYPOTENSI ON) for up to 90 days. simvastatin 2021-09- No [id number] 20mg Take 1 [facility] 20 mg 0-15 -14 tablet by ity of tablet 00:00: 05:59 mouth at [place] 00 :00 bedtime Medical for 90 Branch days. aspirin 81 2021-09- No [id number] 81mg Take 1 [facility] mg chewable 0-15 -14 tablet by it y of tablet 00:00: 05:59 mouth in [place] 00 :00 the Medical morning Branch for 90 days. gabapentin 2021-09- No [id number] 300mg Take 1 [facility] 300 mg 0-15 12-15 capsule by ity of capsule 00:00: 05:59 mouth as [place] 00 :00 needed for Medical Pain Branch (scale 4-6) for up to 60 days. gabapentin 2021-09- No [id number] 300mg Take 1 [facility] 300 mg 0-15 12-15 capsule by ity of capsule 00:00: 05:59 mouth as [place] 00 :00 needed for Medical Pain Branch (scale 4-6) for up to 60 days. gabapentin 2021-09- No [id number] 300mg Take 1 [facility] 300 mg 0-15 12-15 capsule by ity of capsule 00:00: 05:59 mouth as [place] 00 :00 needed for Medical Pain Branch (scale 4-6) for up to 60 days. gabapentin 2021-09- No [id number] 300mg Take 1 [facility] 300 mg 0-15 12-15 capsule by ity of capsule 00:00: 05:59 mouth as [place] 00 :00 needed for Medical Pain Branch (scale 4-6) for up to 60 days. gabapentin 2021-09- No [id number] 300mg Take 1 [facility] 300 mg 0-15 12-15 capsule by ity of capsule 00:00: 05:59 mouth as [place] 00 :00 needed for Medical Pain Branch (scale 4-6) for up to 60 days. gabapentin 2021-09- No [id number] 300mg Take 1 [facility] 300 mg 0-15 12-15 capsule by ity of capsule 00:00: 05:59 mouth as [place] 00 :00 needed for Medical Pain Branch (scale 4-6) for up to 60 days. gabapentin 2021-09- No [id number] 300mg Take 1 [facility] 300 mg 0-15 12-15 capsule by ity of capsule 00:00: 05:59 mouth as [place] 00 :00 needed for Medical Pain Branch (scale 4-6) for up to 60 days. gabapentin 2021-09- No [id number] 300mg Take 1 [facility] 300 mg 0-15 12-15 capsule by ity of capsule 00:00: 05:59 mouth as [place] 00 :00 needed for Medical Pain Branch (scale 4-6) for up to 60 days. gabapentin 2021-09- No [id number] 300mg Take 1 [facility] 300 mg 0-15 12-15 capsule by ity of capsule 00:00: 05:59 mouth as [place] 00 :00 needed for Medical Pain Branch (scale 4-6) for up to 60 days. gabapentin 2021-09- No [id number] 300mg Take 1 [facility] 300 mg 0-15 12-15 capsule by ity of capsule 00:00: 05:59 mouth as [place] 00 :00 needed for Medical Pain Branch (scale 4-6) for up to 60 days. gabapentin 2021-09- No [id number] 300mg Take 1 [facility] 300 mg 0-15 12-15 capsule by ity of capsule 00:00: 05:59 mouth as [place] 00 :00 needed for Medical Pain Branch (scale 4-6) for up to 60 days. amitriptyli 2021-09- No [id number] 100mg Take 2 [facility] ne 50 mg 0-15 10-23 tablets by ity of tablet 00:00: 04:59 mouth at [place] 00 :00 bedtime Medical for 7 Branch days. amitriptyli 2021-09- No [id number] 100mg Take 2 [facility] ne 50 mg 0-15 10-23 tablets by ity of tablet 00:00: 04:59 mouth at [place] 00 :00 bedtime Medical for 7 Branch days. amitriptyli 2021-09- No [id number] 100mg Take 2 [facility] ne 50 mg 0-15 10-23 tablets by ity of tablet 00:00: 04:59 mouth at [place] 00 :00 bedtime Medical for 7 Branch [...] 500 mg 00 First dose Medical on [facility] 06/23/22 at 1700, Until Discontinu ed, Routine metFORMIN 2021-09 No 500mg 500 mg, Uni vers (GLUCOPHAGE 0-13 10-15 Oral, BID it y of ) tablet 22:00: 21:09 MEALS, [place] 500 mg 00 :41 First dose Medical on [facility] 06/23/22 at 1700, Until Discontinu ed, Routine amLODIPine 2021-09 No 5mg 5 mg, Unive rs (NORVASC) 0- 10- Oral, ity of tablet 5 mg 16:52: 17:31 ONCE, 1 [place] 00 :[place] dose, On [facility] 06/23/22 at 1200, Routine captopriL 2021-09 No 12.5mg 12.5 mg, U nivers (CAPOTEN) 0-13 10- Oral, ity of tablet 12.5 04:45: [...] Branch 1,000 mcg last modificati on) on [facility] 06/22/22 at 1515, Until Discontinu ed, Routine tamsulosin 2021-09 No .4mg 0.4 mg, Uni vers (FLOMAX) 012 -15 Oral, ity of capsule 0.4 16:30: [...] 0.9% dose, On Branch (NS) 500 mL [facility] IV infusion 06/22/22 at 0815, Administer over 1.5 Hours, 500 mL iron 2021-09 No 25mg 25 mg, IV Univers dextran 06-22 Piggyback, ity o f (INFED) 25 13:15: 17:35 ONCE, 1 [place] mg in NaCl 00 :53 dose, On Medic al 0.9% (NS) [facility] Branch 100 mL IV 06/22/22 piggyback at 0815, Administer over 15 Minutes, 100 mL magnesium 2021-09 No 4g 4 g, IV Univ ers sulfate in 06-22 Piggyback, it y of water 4 12:15: 15:48 at 25 [place] gram/50 mL 00 :01 mL/hr Medical (8 %) IV Administer Branc h Piggyback 4 over 120 g Minutes, ONCE, 1 dose, On Mon06/22/22 at 0715, Routine amLODIPine 2021-09 No 5mg 5 mg, Unive rs (NORVASC) 0-13 Oral, ity of tablet 5 mg 08:30: 16:53 DAILY, [place] 00 :37 First dose Medical on [facility] 06/22/22 at 0330, Until Discontinu ed, Routine melatonin 2021-09 Yes 3mg 3 mg, Univers (MELATIN) 0-12 Oral, QHS, ity of tablet 3 mg 02:00: First dose [place] 00 on [facility] 06/21/22 Branch at 2100, Until Discontinu ed, Routine melatonin 2021-09- No 3mg 3 mg, Univer s (MELATIN) 0-12 10-15 Oral, QHS, ity of tablet 3 mg 02:00: 21:09 First dose [place] 00 :41 on [facility] 06/21/22 Branch at 2100, Until Discontinu ed, Routine hydrOXYzine 2021-09- No 10mg 10 mg, Uni vers (ATARAX) 0-12 10-12 Oral, ity of tablet 10 02:00: 01:08 ONCE, 1 [place] mg 00 :00 dose, On Medical [facility] 06/21/22 at 2100, Routine enoxaparin 2021-09 Yes 40mg 40 mg, Unive rs (LOVENOX) 0-11 Subcutaneo ity of injection 22:00: [place], [place] 40 mg 00 First dose Medical on [facility] 06/21/22 at 1700, Until Discontinu ed, Routine enoxaparin 2021-09- No 40mg 40 mg, Univ ers (LOVENOX) 0-11 10-15 Subcutaneo ity of injection 22:00: 21:09 [place], DAILY, [place] 40 mg 00 :41 First dose Medical on [facility] 06/21/22 at 1700, Until Discontinu ed, Routine hydroCHLORO 2021-09- No 25mg 25 mg, Uni vers thiazide 0-11 10-11 Oral, ity of (ESIDRIX) 19:00: 20:35 DAILY, [place] tablet 25 00 :31 First dose Medi joyce mg (after Branch last modificati on) on [facility] 06/21/22 at 1400, Until Discontinu ed, Routine Sliding 2021-09 Yes Subcutaneo Univ ers Scale 0-11 us, TID ity of Insulin - 17:00: MEALS+HS, [place] Lispro 00 First dose Medical (HumaLOG) + on [facility] 06/21/22 Testing at 1200, Until Discontinu ed, Routine Sliding 2021-09- No Subcutaneo Uni vers Scale 0-11 10-15 us, TID ity of Insulin - 17:00: 21:09 MEALS+HS, [place] Lispro 00 :41 First dose Medical (HumaLOG) + on [facility] 06/21/22 Testing at 1200, Until Discontinu ed, Routine sulfur 2021-09- No [id number] 5mL 5 mL, Unive rs hexafluorid 0-11 10-11 Intravenou i ty of e microsphr 17:00: 17:00 s, ONCE, 1 [place] (LUMASON) 00 :00 dose, On Medica l injection 5 [facility] mL 06/21/22 at 1200, Routine
modular set crew member approving Restricted medication : WILTON NICHOLAS enalapril 2021-09 Yes 20mg 20 mg, Univer s (VASOTEC) 0-11 Oral, BID, ity of tablet 20 16:00: First dose [place] mg 00 on [facility] 06/21/22 Branch at 1100, Until Discontinu ed, Routine enalapril 2021-09- No 20mg 20 mg, Unive rs (VASOTEC) 0-11 10-15 Oral, BID, ity of tablet 20 16:00: 21:09 First dose [place] mg 00 :41 on [facility] 06/21/22 Branch at 1100, Until Discontinu ed, Routine dextrose 2021-09 Yes 250mL 250 mL, IV Un teo 10% (D10W) 0-11 Infusion, ity of bolus 15:42: PRN - SEE [place] infusion 37 INSTRUCTIO Medic al 250 mL NS, Branch Administer over 60 Minutes, Other, If blood glucose is < or = 70 mg/dL and patient is unable to swallow or has mental status changes, Starting on [facility] 06/21/22 at 1042
If blood glucose [...] 34 Starting Medical injection 1 on Mon [place] mg 06/21/22 at 1042, Until Discontinu ed, YOKO, Blood Glucose < or = 70 mg/dL and patient is unable to swallow or has mental changes. glucagon 2021-09- No 1mg 1 mg, Univers (GLUCAGEN 0-11 10-15 Intramuscu ity of DIAGNOSTIC 15:42: 21:09 lar, PRN, [place] KIT) 34 :41 Starting Medical injection 1 on Mon Branch mg 06/21/22 at 1042, Until 06/25/22 at 1609, YOKO, Blood Glucose < or = 70 mg/dL and patient is unable to swallow or has mental changes. acetaminoph 2021-09 Yes 650mg 650 mg, Un teo en 0-11 Oral, ity of (TYLENOL) 15:21: Q6HPRN, [place] tablet 650 10 Starting Medic al mg on [facility] 06/21/22 at 1021, Until Discontinu ed, Routine, Pain (scale 1-3) acetaminoph 2021-09- No 650mg 650 mg, U nivers en 0-11 - Oral, ity of (TYLENOL) 15:21: 21:09 Q6HPRN, [place] tablet 650 10 :41 Starting Medic al mg on [facility] 06/21/22 at 1021, Until 06/25/22 at 1609, Routine, Pain (scale 1-3) melatonin 2021-09- No 3mg 3 mg, Univer s (MELATIN) 006-21 Oral, ity of tablet 3 mg 09:15: 08:30 ONCE, 1 [place] 00 :[place] dose, On [facility] 06/21/22 at 0415, Routine aspirin 2021-09- No 325mg 325 mg, Unive rs E.C. 006-21 Oral, ity of (ECOTRIN) 08:30: 08:30 ONCE, 1 [place] tablet 325 00 :00 dose, On Medic al mg [facility] 06/21/22 at 0330, STAT atenoloL 2021-09- No 100mg 100 mg, Univ ers (TENORMIN) 006-21 Oral, ity of tablet 100 03:00: 02:13 ONCE, 1 [place] mg 00 :00 dose, On [facility] 06/20/22 at 2200, Routine cloNIDine 2021-09- No .2mg 0.2 mg, Univ ers (CATAPRES) 006-21 Oral, ity of tablet 0.2 02:15: 02:14 ONCE, 1 [place] mg 00 :00 dose, On [facility] 06/20/22 at 2115, STAT iopamidol 2021-09- No [id number] 150mL 150 mL, Univers (ISOVUE 0-10 10-10 Intravenou ity o f 370-500 mL) 21:15: 21:15 s, ONCE, 1 [place] injection 00 :00 dose, On Medica l 150 mL [facility] 06/20/22 at 1615, Routine acetaminoph 2021-09 No 1000mg 1,000 mg, Univers en 0-10 10-10 Oral, ity of (TYLENOL) 21:00: 20:46 ONCE, 1 [place] tablet 00 :00 dose, On Medical 1,000 mg [facility] 06/20/22 at 1600, YOKO piperacilli 2021-09- No 3.375g 3.375 g, Univers n-tazobacta 0-10 10-11 IV ity of m (ZOSYN) 19:30: 18:13 [place]back, [place] 3.375 g in 00 :39 Q8H ABX, Medic al NaCl 0.9% First dose Bran ch (NS) 100 mL on [facility] MINI-BAG 06/20/22 at 1430, Until Discontinu [...] as 1,000 mL 00 :00 IV Medical [place] ONCE, 1 dose, On [facility] 06/20/22 at 1430, STAT tamsulosin 2021- [...] OFFICE TO MAKE AN APPOINTMEN T insulin 0 Yes 15U QD Inject 15 [...] INSULIN) 100 unit/mL (3 mL) InPn Insulin 0 Yes 15U inject 15 Unive [...] t glargine 7-19 [facility] U-100 nightly. INSULIN) 100 unit/mL (3 mL) InPn Insulin 2022- No 15U inject 15 Univ ers Glargine 03-29-26 Units ity of 100 unit/mL 00:00: 00:00 under the [place] (3 mL) 00 :00 skin. Medical injection Branch Insulin 2022- No 15U inject 15 Univ ers Glargine 03-29-26 Units ity of 100 unit/mL 00:00: 00:00 under the [place] (3 mL) 00 :00 skin. Medical injection Branch Insulin 2022- No 15U inject 15 Univ ers Glargine 03-29-26 Units ity of 100 unit/mL 00:00: 00:00 under the [place] (3 mL) 00 :00 skin. Medical injection Branch Insulin 2022- No 15U inject 15 Univ ers Glargine 03-29-26 Units ity of 100 unit/mL 00:00: 00:00 [...] mouth 2 Center (two) times daily. [facility] Yes 10mg QD Take [address] [facility] mg tablet 7- by mouth [facility] 00:00: daily. [address] Yes 10mg QD Take [address] [facility] mg tablet 7-09 by mouth [facility] 00:00: daily. [address] Yes 10mg QD Take [address] [facility] [facility] mg tablet 7- by mouth [facility] 00:00: daily. [address] 10 2020-0 Yes 10mg QD Take [address] [facility] [facility] mg tablet 7-09 by mouth [facility] 00:00: daily. [address] 2019-0 Yes 10mg QD Take [address] [facility] mg tablet 7-09 by mouth [facility] 00:00: daily. [address] 2019-0 Yes 10mg QD Take [address] [facility] mg tablet 7-09 by mouth [facility] 00:00: daily. [address] 2019-0 Yes 10mg QD Take [address] [facility] [address] mg tablet 7-09 by mouth [facility] 00:00: daily. [address] 0 Yes 10mg QD Take [address] [facility] [facility] mg tablet 7-09 by mouth [facility] 00:00: daily. [address] 2019- Yes 10mg QD Take [address] [facility] [address] mg tablet 7-09 by mouth [facility] 00:00: daily. [address] 2019-0 Yes 10mg QD Take [address] [facility] [facility] mg tablet 7-09 by mouth [facility] 00:00: daily. [address] 2019-0 Yes 10mg QD Take [address] [facility] [address] mg tablet 7-09 by mouth [facility] 00:00: daily. [address] 0 Yes 10mg QD Take [address] mg tablet 7-09 by mouth [facility] 00:00: daily. [address] 0 Yes 10mg QD Take [address] [facility] mg tablet 7-09 by mouth [facility] 00:00: daily. [address] 2019-0 Yes 10mg QD Take [address] mg tablet 7-09 by mouth [facility] 00:00: daily. [address] 2019-0 Yes 10mg QD Take [address] [facility] mg tablet 7-09 by mouth [facility] 00:00: daily. [address] 2019-0 Yes 10mg QD Take [address] [facility] [facility] mg tablet 7-09 by mouth [facility] 00:00: daily. [address] simvastatin 2019-0 Yes 20mg QD Take [address] [facility] (ZOCOR) 20 5-13 by mouth [facility] MG tablet 00:00: nightly. [address] tamsulosin 2019-0 Yes .4mg Take 0.[address] [facility] (FLOMAX) 5-13 mg by [facility] 0.4 mg Cap 00:00: mouth Medica l 24 hr 00 Daily Center capsule (1800). simvastatin 2020-0 Yes 20mg QD Take [address] [facility] (ZOCOR) 20 5-13 by mouth [facility] MG tablet 00:00: nightly. [address] tamsulosin 2020-0 Yes .4mg Take 0.[address] [facility] (FLOMAX) 5-13 mg by [facility] 0.4 mg Cap 00:00: mouth Medica l 24 hr 00 Daily Center capsule (1800). simvastatin 2020-0 Yes 20mg QD Take [address] [facility] (ZOCOR) 20 5-13 by mouth [facility] MG tablet 00:00: nightly. [address] tamsulosin 2020-0 Yes .4mg Take 0.[address] [facility] (FLOMAX) 5-13 mg by [facility] 0.4 mg Cap 00:00: mouth Medica l 24 hr 00 Daily Center capsule (1800). simvastatin 2020-0 Yes 20mg QD Take [address] [facility] (ZOCOR) 20 5-13 by mouth [facility] MG tablet 00:00: nightly. [address] tamsulosin 2020-0 Yes .4mg Take 0.[address] [facility] (FLOMAX) 5-13 mg by [facility] 0.4 mg Cap 00:00: mouth Medica l 24 hr 00 Daily Center capsule (1800). simvastatin 2020-0 Yes 20mg QD Take [address] (ZOCOR) 20 5-13 by mouth [facility] MG tablet 00:00: nightly. [address] tamsulosin 2020-0 Yes .4mg Take 0.[address] [facility] (FLOMAX) 5-13 mg by [facility] 0.4 mg Cap 00:00: mouth Medica l 24 hr 00 Daily Center capsule (1800). simvastatin 2020-0 Yes 20mg QD Take [address] [facility] (ZOCOR) 20 5-13 by mouth [facility] MG tablet 00:00: nightly. [address] tamsulosin 2020-0 Yes .4mg Take 0.[address] [facility] (FLOMAX) 5-13 mg by [facility] 0.4 mg Cap 00:00: mouth Medica l 24 hr 00 Daily Center capsule (1800). simvastatin 2020-0 Yes 20mg QD Take [address] [facility] (ZOCOR) 20 5-13 by mouth [facility] MG tablet 00:00: nightly. [address] tamsulosin 2020-0 Yes .4mg Take 0.[address] [facility] (FLOMAX) 5-13 mg by [facility] 0.4 mg Cap 00:00: mouth Medica l 24 hr 00 Daily Center capsule (1800). simvastatin 2020-0 Yes 20mg QD Take [address] [facility] (ZOCOR) 20 5-13 by mouth [facility] MG tablet 00:00: nightly. [address] tamsulosin 2020-0 Yes .4mg Take 0.[address] [facility] (FLOMAX) 5-13 mg by [facility] 0.4 mg Cap 00:00: mouth Medica l 24 hr 00 Daily Center capsule (1800). simvastatin 2020-0 Yes 20mg QD Take [address] [facility] (ZOCOR) 20 5-13 by mouth [facility] MG tablet 00:00: nightly. [address] tamsulosin 2020-0 Yes .4mg Take 0.[address] [facility] (FLOMAX) 5-13 mg by [facility] 0.4 mg Cap 00:00: mouth Medica l 24 hr 00 Daily Center capsule (1800). simvastatin 2020-0 Yes 20mg QD Take [address] [facility] (ZOCOR) 20 5-13 by mouth [facility] MG tablet 00:00: nightly. [address] tamsulosin 2020-0 Yes .4mg Take 0.[address] [facility] (FLOMAX) 5-13 mg by [facility] 0.4 mg Cap 00:00: mouth Medica l 24 hr 00 Daily Center capsule (1800). simvastatin 2020-0 Yes 20mg QD Take [address] [facility] (ZOCOR) 20 5-13 by mouth [facility] MG tablet 00:00: nightly. [address] tamsulosin 2020-0 Yes .4mg Take 0.[address] [facility] (FLOMAX) 5-13 mg by [facility] 0.4 mg Cap 00:00: mouth Medica l 24 hr 00 Daily Center capsule (1800). simvastatin 2020-0 Yes 20mg QD Take [address] [facility] (ZOCOR) 20 5-13 by mouth [facility] MG tablet 00:00: nightly. [address] tamsulosin 2020-0 Yes .4mg Take 0.[address] [facility] (FLOMAX) 5-13 mg by [facility] 0.4 mg Cap 00:00: mouth Medica l 24 hr 00 Daily Center capsule (1800). simvastatin 2020-0 Yes 20mg QD Take [address] [facility] (ZOCOR) 20 5-13 by mouth [facility] MG tablet 00:00: nightly. [address] tamsulosin 2020-0 Yes .4mg Take 0.[address] [facility] (FLOMAX) 5-13 mg by [facility] 0.4 mg Cap 00:00: mouth Medica l 24 hr 00 Daily Center capsule (1800). simvastatin 2020-0 Yes 20mg QD Take [address] [facility] (ZOCOR) 20 5-13 by mouth [facility] MG tablet 00:00: nightly. [address] tamsulosin 2020-0 Yes .4mg Take 0.[address] [facility] (FLOMAX) 5-13 mg by [facility] 0.4 mg Cap 00:00: mouth Medica l 24 hr 00 Daily Center capsule (1800). simvastatin 2020-0 Yes 20mg QD Take [address] [facility] (ZOCOR) 20 5-13 by mouth [facility] MG tablet 00:00: nightly. [address] tamsulosin 2020-0 Yes .4mg Take 0.[address] [facility] (FLOMAX) 5-13 mg by [facility] 0.4 mg Cap 00:00: mouth Medica l 24 hr 00 Daily Center capsule (1800). simvastatin 2020-0 Yes 20mg QD Take [address] [facility] (ZOCOR) 20 5-13 by mouth [facility] MG tablet 00:00: nightly. [address] tamsulosin 2020-0 Yes .4mg Take 0.[address] [facility] (FLOMAX) 5-13 mg by [facility] 0.4 mg Cap 00:00: mouth Medica l 24 hr 00 Daily Center capsule (1800). omeprazole 2020-0 Yes 20mg QD Take [address] (PRILOSEC) 5-04 by mouth [facility] 20 MG 00:00: daily. Medical capsule 00 [place] omeprazole 2020-0 Yes 20mg QD Take [address] (PRILOSEC) 5-04 by mouth [facility] 20 MG 00:00: daily. Medical capsule 00 [place] omeprazole 2020-0 Yes 20mg QD Take [address] (PRILOSEC) 5-04 by mouth [facility] 20 MG 00:00: daily. Medical capsule 00 [place] omeprazole 2020-0 Yes 20mg QD Take [address] (PRILOSEC) 5-04 by mouth [facility] 20 MG 00:00: daily. Medical [address] omeprazole 2020-0 Yes 20mg QD Take [address] (PRILOSEC) 5-04 by mouth [facility] 20 MG 00:00: daily. Medical capsule [address] [place] [address] omeprazole 2020-0 Yes 20mg QD Take [address] (PRILOSEC) 5-04 by mouth [facility] 20 MG 00:00: daily. Medical capsule [address] [place] [address] omeprazole 2020-0 Yes 20mg QD Take [address] (PRILOSEC) 5-04 by mouth [facility] 20 MG 00:00: daily. Medical capsule [address] [place] [address] omeprazole 2020-0 Yes 20mg QD Take [address] (PRILOSEC) 5-04 by mouth [facility] 20 MG 00:00: daily. Medical capsule [address] [place] [address] omeprazole 2020-0 Yes 20mg QD Take [address] (PRILOSEC) 5-04 by mouth [facility] 20 MG 00:00: daily. Medical [address] omeprazole 2020-0 Yes 20mg QD Take [address] (PRILOSEC) 5-04 by mouth [facility] 20 MG 00:00: daily. Medical [address] omeprazole 2020-0 Yes 20mg QD Take [address] (PRILOSEC) 5-04 by mouth [facility] 20 MG 00:00: daily. Medical capsule [address] [place] [address] omeprazole 2020-0 Yes 20mg QD Take [address] (PRILOSEC) 5-04 by mouth [facility] 20 MG 00:00: daily. Medical [address] omeprazole 2020-0 Yes 20mg QD Take [address] (PRILOSEC) 5-04 by mouth [facility] 20 MG 00:00: daily. Medical [address] omeprazole 2020-0 Yes 20mg QD Take [address] (PRILOSEC) 5-04 by mouth [facility] 20 MG 00:00: daily. Medical capsule [address] [place] [address] omeprazole 2020-0 Yes 20mg QD Take [address] (PRILOSEC) 5-04 by mouth [facility] 20 MG 00:00: daily. Medical [address] omeprazole 2020-0 Yes 20mg QD Take [address] (PRILOSEC) 5-04 by mouth [facility] 20 MG 00:00: daily. Medical [address] fLUoxetine 2019-0 Yes 20mg QD Take [address] (PROZAC) 20 8-23 by mouth [facility] MG capsule 00:00: daily. [address] 3 Yes 3mg QD Take [address] mg Tab 8-23 by mouth [facility] tablet 00:00: nightly. [address] 3 Yes 3mg QD Take [address] mg Tab 8-23 by mouth [facility] tablet 00:00: nightly. [address] fLUoxetine Yes 20mg QD Take [address] (PROZAC) 20 8-23 by mouth Luke s MG capsule 00:00: daily. [address] 3 Yes 3mg QD Take [address] mg Tab 8-23 by mouth [facility] tablet 00:00: nightly. [address] Yes 20mg QD Take [address] (PROZAC) 20 8-23 by mouth Luke [facility] MG capsule 00:00: daily. [address] 3 Yes 3mg QD Take [address] mg Tab 8-23 by mouth [facility] tablet 00:00: nightly. [address] Yes 20mg QD Take [address] (PROZAC) 20 8-23 by mouth [facility] MG capsule 00:00: daily. [address] 3 Yes 3mg QD Take [address] mg Tab 8-23 by mouth [facility] tablet 00:00: nightly. [address] fLUoxetine Yes 20mg QD Take [address] (PROZAC) 20 8-23 by mouth Luke s MG capsule 00:00: daily. [address] 3 Yes 3mg QD Take [address] mg Tab 8-23 by mouth [facility] tablet 00:00: nightly. [address] fLUoxetine 0 Yes 20mg QD Take [address] (PROZAC) 20 8-23 by mouth Luke s MG capsule 00:00: daily. [address] 3 Yes 3mg QD Take [address] mg Tab 8-23 by mouth [facility] tablet 00:00: nightly. [address] Yes 20mg QD Take [address] (PROZAC) 20 8-23 by mouth Luke [facility] MG capsule 00:00: daily. [address] 3 2018-0 Yes 3mg QD Take [address] mg Tab 8-23 by mouth [facility] tablet 00:00: nightly. [address] fLUoxetine 2018-0 Yes 20mg QD Take [address] (PROZAC) 20 8-23 by mouth Luke s MG capsule 00:00: daily. [address] 3 Yes 3mg QD Take [address] mg Tab 8-23 by mouth [facility] tablet 00:00: nightly. [address] fLUoxetine 0 Yes 20mg QD Take [address] (PROZAC) 20 8-23 by mouth Luke s MG capsule 00:00: daily. [address] 3 Yes 3mg QD Take [address] mg Tab 8-23 by mouth [facility] tablet 00:00: nightly. [address] Yes 20mg QD Take [address] (PROZAC) 20 8-23 by mouth Luke [facility] MG capsule 00:00: daily. [address] 3 Yes 3mg QD Take [address] mg Tab 8-23 by mouth [facility] tablet 00:00: nightly. [address] fLUoxetine Yes 20mg QD Take [address] (PROZAC) 20 8-23 by mouth Luke s MG capsule 00:00: daily. [address] 3 Yes 3mg QD Take [address] mg Tab 8-23 by mouth [facility] tablet 00:00: nightly. [address] fLUoxetine 0 Yes 20mg QD Take [address] (PROZAC) 20 8-23 by mouth Luke s MG capsule 00:00: daily. [address] 3 2018-0 Yes 3mg QD Take [address] mg Tab 8-23 by mouth [facility] tablet 00:00: nightly. [address] fLUoxetine 2018-0 Yes 20mg QD Take [address] (PROZAC) 20 8-23 by mouth Luke s MG capsule 00:00: daily. [address] 3 Yes 3mg QD Take [address] mg Tab 8-23 by mouth [facility] tablet 00:00: nightly. [address] fLUoxetine 2019-0 Yes 20mg QD Take [address] (PROZAC) 20 8-23 by mouth Luke s MG capsule 00:00: daily. Medic al 00 [place] melatonin 3 Yes 3mg QD Take [address] mg Tab 8-23 by mouth [facility] tablet 00:00: nightly. [address] fLUoxetine Yes 20mg QD Take [address] (PROZAC) 20 8-23 by mouth Luke s MG capsule 00:00: daily. Medic al 00 [facility] 3 Yes 3mg QD Take [address] mg Tab 8-23 by mouth [facility] tablet 00:00: nightly. [address] fLUoxetine Yes 20mg QD Take [address] (PROZAC) 20 8-23 by mouth Luke s MG capsule 00:00: daily. Medic [address] PEPCID 20 Yes prn Univers MG ORAL TAB 6-11 ity of 04:52: [address] COMPLEX 1 Yes None Univer s ORAL TAB 6-11 Entered ity of 04:52: [address] M-VIT ORAL Yes None Univers 6-11 Entered ity of 04:52: [address] 20 Yes prn Univers MG ORAL TAB 6-11 ity of 04:52: [address] 1 Yes None Univer s ORAL TAB 6-11 Entered ity of 04:52: [address] M-VIT ORAL Yes None Univers 6-11 Entered ity of 04:52: [address] 20 Yes prn Univers MG ORAL TAB 6-11 ity of 04:52: [address] 1 Yes None Univer s ORAL TAB 6-11 Entered ity of 04:52: [address] M-VIT ORAL Yes None Univers 6-11 Entered ity of 04:52: [address] 20 Yes prn Univers MG ORAL TAB 6-11 ity of 04:52: [address] COMPLEX 1 Yes None Univer s ORAL TAB 6-11 Entered ity of 04:52: [address] M-VIT ORAL Yes None Univers 6-11 Entered ity of 04:52: [address] PEPCID 20 Yes prn Univers MG ORAL TAB 6-10 ity of 23:52: [address] B COMPLEX 1 Yes None Univer s ORAL TAB 6-10 Entered ity of 23:52: [address] M-VIT ORAL Yes None Univers 6-10 Entered ity of 23:52: [address] PEPCID 20 Yes prn Univers MG ORAL TAB 6-10 ity of 23:52: [address] B COMPLEX 1 Yes None Univer s ORAL TAB 6-10 Entered ity of 23:52: [address] M-VIT ORAL Yes None Univers 6-10 Entered ity of 23:52: [address] lisinopriL 2014-09 Yes 40mg Take [address] (PRINIVIL,Z 2-21 by mouth [facility] ESTRIL) 40 00:00: Daily [facility]ica [facility] MG tablet 00 (1800). [place] lisinopriL 2014-09 Yes 40mg Take [address] (PRINIVIL,Z 2-21 by mouth [facility] ESTRIL) 40 00:00: Daily Medica [facility] MG tablet 00 (1800). [place] lisinopriL 2014-09 Yes 40mg Take [address] (PRINIVIL,Z 2-21 by mouth [facility] ESTRIL) 40 00:00: Daily Medica l MG tablet 00 (1800). [place] lisinopriL 2014-09 Yes 40mg Take [address] (PRINIVIL,Z 2-21 by mouth [facility] ESTRIL) 40 00:00: Daily Medica l MG tablet 00 (1800). [place] lisinopriL 2014-09 Yes 40mg Take [address] (PRINIVIL,Z 2-21 by mouth [facility] ESTRIL) 40 00:00: Daily Medica l MG tablet 00 (1800). [place] lisinopriL 2014-09 Yes 40mg Take [address] (PRINIVIL,Z 2-21 by mouth [facility] ESTRIL) 40 00:00: Daily Medica l MG tablet 00 (1800). [place] lisinopriL 2014-09 Yes 40mg Take [address] (PRINIVIL,Z 2-21 by mouth [facility] ESTRIL) 40 00:00: Daily Medica l MG tablet 00 (1800). [place] lisinopriL 2014-09 Yes 40mg Take [address] (PRINIVIL,Z 2-21 by mouth [facility] ESTRIL) 40 00:00: Daily Medica [facility] MG tablet 00 (1800). [place] lisinopriL 2014-09 Yes 40mg Take [address] (PRINIVIL,Z 2-21 by mouth [facility] ESTRIL) 40 00:00: Daily Medica l MG tablet 00 (1800). [place] lisinopriL 2014-09 Yes 40mg Take [address] (PRINIVIL,Z 2-21 by mouth [facility] ESTRIL) 40 00:00: Daily Medica l MG tablet 00 (1799). [place] lisinopriL 2014-09 Yes 40mg Take [address] (PRINIVIL,Z 2-21 by mouth [facility] ESTRIL) 40 00:00: Daily Medica l MG tablet 00 (1799). [place] lisinopriL 2014-09 Yes 40mg Take [address] (PRINIVIL,Z 2-21 by mouth [facility] ESTRIL) 40 00:00: Daily Medica l MG tablet 00 (1799). [place] lisinopriL 2014-09 Yes 40mg Take [address] (PRINIVIL,Z 2-21 by mouth [facility] ESTRIL) 40 00:00: Daily Medica l MG tablet 00 (1800). [place] lisinopriL 2014-09 Yes 40mg Take [address] (PRINIVIL,Z 2-21 by mouth [facility] ESTRIL) 40 00:00: Daily Medica l MG tablet 00 (1799). [place] lisinopriL 2014-09 Yes 40mg Take [address] (PRINIVIL,Z 2-21 by mouth [facility] ESTRIL) 40 00:00: Daily Medica l MG tablet 00 (1799). [place] lisinopriL 2014-09 Yes 40mg Take [address] (PRINIVIL,Z 2-21 by mouth [facility] ESTRIL) 40 00:00: Daily Medica l MG tablet 00 (1800). [place] PROTONIX 40 2008- Yes [id number] 1 tab PO Univers MG ORAL 4- daily ity of TBEC 00:00: [place] [facility] PROTONIX 40 2008-0 Yes [id number] 1 tab PO Univers MG ORAL 4-01 daily ity of TBEC 00:00: [place] [facility] PROTONIX 40 2008-0 Yes [id number] 1 tab PO Univers MG ORAL 4-01 daily ity of TBEC 00:00: [place] [facility] PROTONIX 40 2008-0 Yes [id number] 1 tab PO Univers MG ORAL 4-01 daily ity of TBEC 00:00: [place] [facility] PROTONIX 40 2008-0 Yes [id number] 1 tab PO Univers MG ORAL 4-01 daily ity of TBEC 00:00: [place] [facility] PROTONIX 40 2008-0 Yes [id number] 1 tab PO Univers MG ORAL 4-01 daily ity of TBEC 00:00: [place] [facility] PROTONIX 40 2008-0 2- No [id number] 1 tab PO Univers MG ORAL 4-01 10-15 daily ity of TBEC 00:00: 00:00 [place] 00 :00 [facility] PROTONIX 40 2008-0 2- No [id number] 1 tab PO Univers MG ORAL 4-01 10-15 daily ity of TBEC 00:00: 00:00 [place] 00 :00 [facility] ENALAPRIL 2009-0 Yes [id number] 1 tab po Univers MALEATE 20 1-15 BID ity of MG ORAL TAB 00:00: [place] [facility] ENALAPRIL 2009-0 Yes [id number] 1 tab po Univers MALEATE 20 1-15 BID ity of MG ORAL TAB 00:00: [place] 00 [facility] ENALAPRIL 2009-0 Yes [id number] 1 tab po Univers MALEATE 20 1-15 BID ity of MG ORAL TAB 00:00: [place] 00 [facility] ENALAPRIL 2008-0 Yes [id number] 1 tab po Univers MALEATE 20 1-15 BID ity of MG ORAL TAB 00:00: [place] 00 [facility] ENALAPRIL 2008-0 Yes [id number] 1 tab po Univers MALEATE 20 1-15 BID ity of MG ORAL TAB 00:00: [place] 00 [facility] ENALAPRIL 2008-0 Yes [id number] 1 tab po Univers MALEATE 20 1-15 BID ity of MG ORAL TAB 00:00: [place] 00 [facility] ENALAPRIL 2008-0 2022- No [id number] 1 tab po Univers MALEATE 20 1-15 10-15 BID ity of MG ORAL TAB 00:00: 00:00 [place] 00 :00 [facility] ENALAPRIL 2008-2021- No [id number] 1 tab po Univers MALEATE 20 1-15 10-15 BID ity of MG ORAL TAB 00:00: 00:00 [place] 00 :00 [facility] HYDROCHLORO 2007-09 Yes [id number] take 1 po Univers THIAZIDE 25 0-30 daily ity of MG ORAL TAB 00:00: [place] [facility] HYDROCHLORO 2007-09 Yes [id number] take 1 po Univers THIAZIDE 25 0-30 daily ity of MG ORAL TAB 00:00: [place] 00 [facility] HYDROCHLORO 2007-09 Yes [id number] take 1 po Univers THIAZIDE 25 0-30 daily ity of MG ORAL TAB 00:00: [place] 00 [facility] HYDROCHLORO 2007-09 Yes [id number] take 1 po Univers THIAZIDE 25 0-30 daily ity of MG ORAL TAB 00:00: [place] 00 [facility] HYDROCHLORO 2007-09 Yes [id number] take 1 po Univers THIAZIDE 25 0-30 daily ity of MG ORAL TAB 00:00: [place] 00 [facility] HYDROCHLORO 2007-09 Yes [id number] take 1 po Univers THIAZIDE 25 0-30 daily ity of MG ORAL TAB 00:00: [place] [facility] HYDROCHLORO 2007-2021- No [id number] take 1 po Univers THIAZIDE 25 0-30 10-15 daily ity of MG ORAL TAB 00:00: 00:00 [place] 00 :00 [facility] HYDROCHLORO 2007-2021- No [id number] take 1 po Univers THIAZIDE 25 0-30 [...] it y of 00:00: 00:00 tab qpm [place] 00 :00 [facility] GLIPIZIDE 5 2021- No tske 2 tab Univers MG ORAL TAB -05 21- qam and 1 it y of 00:00: 00:00 tab qpm [place] 00 :00 [facility] ATENOLOL Yes [id number] one tab po [facility] 100 MG ORAL 8-27 daily ity of TAB 00:00: [facility] NORCO Yes 1 tab po Univers 7.5-325 MG 8-27 TID ity of ORAL TAB 00:00: [facility] AMITRIPTYLI Yes 2 tabs QHS Univers NE 50 MG 8-27 ity of ORAL TAB 00:00: [facility] METFORMIN Yes [id number] 1 tab PO Univers 850 MG ORAL 8-27 TID ity of TAB 00:00: [facility] CLONIDINE Yes [id number] take 1 po Univers 0.2 MG ORAL 8-27 qid for 1 ity of TAB 00:00: week, then [place] 00 tid for 1 Medical week, then Branch bid and prn thereafter PRAVASTATIN Yes [id number] take 1 po Univers 40 MG ORAL 8-27 qhs ity of TAB 00:00: [facility] ATENOLOL Yes [id number] one tab po [facility] 100 MG ORAL 8-27 daily ity of TAB 00:00: [facility] NORCO Yes 1 tab po Univers 7.5-325 MG 8-27 TID ity of ORAL TAB 00:00: [facility] AMITRIPTYLI Yes 2 tabs QHS Univers NE 50 MG 8-27 ity of ORAL TAB 00:00: [place] 00 [facility] METFORMIN Yes [id number] 1 tab PO Univers 850 MG ORAL 8-27 TID ity of TAB 00:00: [place] [facility] CLONIDINE Yes [id number] take 1 po Univers 0.2 MG ORAL 8-27 qid for 1 ity of TAB 00:00: week, then [place] 00 tid for 1 Medical week, then Branch bid and prn thereafter PRAVASTATIN Yes [id number] take 1 po [facility] 40 MG ORAL 8-27 qhs ity of TAB 00:00: [place] [facility] ATENOLOL Yes [id number] one tab po [facility] 100 MG ORAL 8-27 daily ity of TAB 00:00: [place] [facility] NORCO Yes 1 tab po Univers 7.5-325 MG 8-27 TID ity of ORAL TAB 00:00: [place] [facility] AMITRIPTYLI Yes 2 tabs QHS Univers NE 50 MG 8-27 ity of ORAL TAB 00:00: [place] [facility] METFORMIN Yes [id number] 1 tab PO Univers 850 MG ORAL 8-27 TID ity of TAB 00:00: [place] [facility] CLONIDINE Yes [id number] take 1 po Univers 0.2 MG ORAL 8-27 qid for 1 ity of TAB 00:00: week, then [place] 00 tid for 1 Medical week, then Branch bid and prn thereafter PRAVASTATIN Yes [id number] take 1 po [facility] 40 MG ORAL 8-27 qhs ity of TAB 00:00: [place] [facility] ATENOLOL Yes [id number] one tab po [facility] 100 MG ORAL 8-27 daily ity of TAB 00:00: [place] [facility] NORCO Yes 1 tab po Univers 7.5-325 MG 8-27 TID ity of ORAL TAB 00:00: [place] [facility] AMITRIPTYLI Yes 2 tabs QHS Univers NE 50 MG 8-27 ity of ORAL TAB 00:00: [place] [facility] METFORMIN Yes [id number] 1 tab PO [facility] 850 MG ORAL 8-27 TID ity of TAB 00:00: [place] [facility] CLONIDINE Yes [id number] take 1 po Univers 0.2 MG ORAL 8-27 qid for 1 ity of TAB 00:00: week, then [place] 00 tid for 1 Medical week, then Branch bid and prn thereafter PRAVASTATIN Yes [id number] take 1 po [facility] 40 MG ORAL 8-27 qhs ity of TAB 00:00: [place] [facility] ATENOLOL Yes [id number] one tab po [facility] 100 MG ORAL 8-27 daily ity of TAB 00:00: [place] [facility] NORCO Yes 1 tab po Univers 7.5-325 MG 8-27 TID ity of ORAL TAB 00:00: [place] [facility] AMITRIPTYLI Yes 2 tabs QHS Univers NE 50 MG 8-27 ity of ORAL TAB 00:00: [place] [facility] METFORMIN Yes [id number] 1 tab PO [facility] 850 MG ORAL 8-27 TID ity of TAB 00:00: [place] [facility] CLONIDINE Yes [id number] take 1 po Univers 0.2 MG ORAL 8-27 qid for 1 ity of TAB 00:00: week, then [place] 00 tid for 1 Medical week, then Branch bid and prn thereafter PRAVASTATIN Yes [id number] take 1 po [facility] 40 MG ORAL 8-27 qhs ity of TAB 00:00: [place] [facility] ATENOLOL Yes [id number] one tab po [facility] 100 MG ORAL 8-27 daily ity of TAB 00:00: [place] [facility] NORCO Yes 1 tab po Univers 7.5-325 MG 8-27 TID ity of ORAL TAB 00:00: [place] [facility] AMITRIPTYLI Yes 2 tabs QHS Univers NE 50 MG 8-27 ity of ORAL TAB 00:00: [place] [facility] METFORMIN Yes [id number] 1 tab PO Univers 850 MG ORAL 8-27 TID ity of TAB 00:00: [place] [facility] CLONIDINE Yes [id number] take 1 po Univers 0.2 MG ORAL 8-27 qid for 1 ity of TAB 00:00: week, then [place] 00 tid for 1 Medical week, then Branch bid and prn thereafter PRAVASTATIN Yes [id number] take 1 po Univers 40 MG ORAL 8-27 qhs ity of TAB 00:00: [place] 00 [facility] ATENOLOL 2021- No [id number] one tab po Univers 100 MG ORAL [...] 00 :00 [facility] METFORMIN 2021- No [id number] 1 tab PO Univers 850 MG ORAL 8-27 10-15 TID ity of TAB 00:00: 00:00 [place] 00 :00 [facility] CLONIDINE 2021- No [id number] take 1 po Univers 0.2 MG ORAL 8-27 10-15 qid for 1 it y of TAB 00:00: 00:00 week, then [place] 00 :00 tid for 1 Medical week, then Branch bid and prn thereafter PRAVASTATIN 2- No [id number] take 1 po Univers 40 MG ORAL 8-27 10-15 qhs ity of TAB 00:00: 00:00 [place] 00 :00 [facility] ATENOLOL 2021- No [id number] one tab po Univers 100 MG ORAL [...] 00 :00 [facility] METFORMIN 2021- No [id number] 1 tab PO Univers 850 MG ORAL 8-27 10-15 TID ity of TAB 00:00: 00:00 [place] 00 :00 [facility] CLONIDINE 2021- No [id number] take 1 po Univers 0.2 MG ORAL 8-27 10-15 qid for 1 it y of TAB 00:00: 00:00 week, then [place] 00 :00 tid for 1 Medical week, then Branch bid and prn thereafter PRAVASTATIN 2007-2021- No [id number] take 1 po Univers 40 MG ORAL 8-27 10-15 qhs ity of TAB 00:00: 00:00 [place] 00 :00 [facility] CLONIDINE 2007- Yes [id number] 1 tab tid Univers 0.3 MG ORAL 4-30 and prn ity o f TAB 00:00: [place] [facility] CLONIDINE 2007- Yes [id number] 1 tab tid Univers 0.3 MG ORAL 4-30 and prn ity o f TAB 00:00: [place] [facility] CLONIDINE 2007- Yes [id number] 1 tab tid Univers 0.3 MG ORAL 4-30 and prn ity o f TAB 00:00: [place] [facility] CLONIDINE 2007- Yes [id number] 1 tab tid Univers 0.3 MG ORAL 4-30 and prn ity o f TAB 00:00: [place] [facility] CLONIDINE 2007- Yes [id number] 1 tab tid Univers 0.3 MG ORAL 4-30 and prn ity o f TAB 00:00: [place] [facility] CLONIDINE 2007- Yes [id number] 1 tab tid Univers 0.3 MG ORAL 4-30 and prn ity o f TAB 00:00: [place] [facility] CLONIDINE 2007-0 2021- No [id number] 1 tab tid Univers 0.3 MG ORAL 4-30 10-15 and prn ity of TAB 00:00: 00:00 [place] 00 :00 [facility] CLONIDINE 2007-0 2021- No [id number] 1 tab tid Univers 0.3 MG ORAL 4-30 10-15 and prn ity of TAB 00:00: 00:00 [place] 00 :00 [facility] ASPIRIN 325 2006- Yes [id number] 1 tab U nivers MG ORAL TAB 0-04 daily ity of 00:00: [place] [facility] ASPIRIN 325 2006- Yes [id number] 1 tab U nivers MG ORAL TAB 0-04 daily ity of 00:00: [place] [facility] ASPIRIN 325 2006- Yes [id number] 1 tab U nivers MG ORAL TAB 0-04 daily ity of 00:00: [place] 00 [facility] ASPIRIN 325 2006- Yes [id number] 1 tab U nivers MG ORAL TAB 0-04 daily ity of 00:00: [place] [facility] ASPIRIN 325 2006- Yes [id number] 1 tab U nivers MG ORAL TAB 0-04 daily ity of 00:00: [place] [facility] ASPIRIN 325 2006- Yes [id number] 1 tab U nivers MG ORAL TAB 0-04 daily ity of 00:00: [place] [facility] ASPIRIN 325 2006-2- No [id number] 1 tab Univers MG ORAL TAB 0-04 10-15 daily ity of 00:00: 00:00 [place] 00 :00 [facility] ASPIRIN 325 2006-2021- No [id number] 1 tab Univers MG ORAL TAB 0-04 10-15 daily ity of 00:00: 00:00 [place] 00 :00 [facility] Immunizations Ordered Filled Date Status Comments Source Immunization Name Immunization Name Influenza Virus 2007-06-20 Completed Universit y of Vaccine 00:00:00 [facility] Influenza Virus 2007-06-20 Completed Universit y of Vaccine 00:00:00 [facility] Influenza Virus 2007-06-20 Completed Universit y of Vaccine 00:00:00 [facility] Influenza Virus 2007-06-20 Completed Universit y of Vaccine 00:00:00 [facility] Influenza Virus 2007-06-20 Completed Universit y of Vaccine 00:00:00 [facility] Influenza Virus 2007-06-20 Completed Universit y of Vaccine 00:00:00 [facility] Influenza Virus 2007-06-20 Completed Universit y of Vaccine 00:00:00 [facility] Influenza Virus 2007-06-20 Completed Universit y of Vaccine 00:00:00 [facility] Influenza Virus 2007-06-20 Completed Universit y of Vaccine 00:00:00 [facility] Influenza Virus 2007-06-20 Completed Universit y of Vaccine 00:00:00 [facility] Influenza Virus 2007-06-20 Completed Universit y of Vaccine 00:00:00 [facility] Influenza Virus 2007-06-20 Completed Universit y of Vaccine 00:00:00 [facility] Influenza Virus 2007-06-20 Completed Universit y of Vaccine 00:00:00 [facility] Influenza Virus 2007-06-20 Completed Universit y of Vaccine 00:00:00 [facility] Influenza Virus 2007-06-20 Completed Universit y of Vaccine 00:00:00 [facility] Influenza Virus 2007-06-20 Completed Universit y of Vaccine 00:00:00 [facility] Influenza Virus 2007-06-20 Completed Universit y of Vaccine 00:00:00 [facility] Influenza Virus 2007-06-20 Completed Universit y of Vaccine 00:00:00 [facility] Influenza Virus 2007-06-20 Completed Universit y of Vaccine 00:00:00 [facility] Influenza Virus 2007-06-20 Completed Universit y of Vaccine 00:00:00 [facility] Influenza Virus 2007-06-20 Completed Universit y of Vaccine 00:00:00 [facility] Influenza Virus 2007-06-20 Completed Universit y of Vaccine 00:00:00 [facility] Influenza Virus 2007-06-20 Completed Universit y of Vaccine 00:00:00 [facility] Influenza Virus 2007-06-20 Completed Universit y of Vaccine 00:00:00 [facility] Influenza Virus 2007-06-20 Completed Universit y of Vaccine 00:00:00 [facility] Influenza Virus 2007-06-20 Completed Universit y of Vaccine 00:00:00 [facility] Influenza Virus 2006-07-26 Completed Universit y of Vaccine 00:00:00 [facility] Influenza Virus 2006-07-26 Completed Universit y of Vaccine 00:00:00 [facility] Influenza Virus 2006-07-26 Completed Universit y of Vaccine 00:00:00 [facility] Influenza Virus 2006-07-26 Completed Universit y of Vaccine 00:00:00 [facility] Influenza Virus 2006-07-26 Completed Universit y of Vaccine 00:00:00 [facility] Influenza Virus 2006-07-26 Completed Universit y of Vaccine 00:00:00 [facility] Influenza Virus 2006-07-26 Completed Universit y of Vaccine 00:00:00 [facility] Influenza Virus 2006-07-26 Completed Universit y of Vaccine 00:00:00 [facility] Influenza Virus 2006-07-26 Completed Universit y of Vaccine 00:00:00 [facility] Influenza Virus 2006-07-26 Completed Universit y of Vaccine 00:00:00 [facility] Influenza Virus 2006-07-26 Completed Universit y of Vaccine 00:00:00 [facility] Influenza Virus 2006-07-26 Completed Universit y of Vaccine 00:00:00 [facility] Influenza Virus 2006-07-26 Completed Universit y of Vaccine 00:00:00 [facility] Influenza Virus 2006-07-26 Completed Universit y of Vaccine 00:00:00 [facility] Influenza Virus 2006-07-26 Completed Universit y of Vaccine 00:00:00 [facility] Influenza Virus 2006-07-26 Completed Universit y of Vaccine 00:00:00 [facility] Influenza Virus 2006-07-26 Completed Universit y of Vaccine 00:00:00 [facility] Influenza Virus 2006-07-26 Completed Universit y of Vaccine 00:00:00 [facility] Influenza Virus 2006-07-26 Completed Universit y of Vaccine 00:00:00 [facility] Influenza Virus 2006-07-26 Completed Universit y of Vaccine 00:00:00 [facility] Influenza Virus 2006-07-26 Completed Universit y of Vaccine 00:00:00 [facility] Influenza Virus 2006-07-26 Completed Universit y of Vaccine 00:00:00 [facility] Influenza Virus 2006-07-26 Completed Universit y of Vaccine 00:00:00 [facility] Influenza Virus 2006-07-26 Completed Universit y of Vaccine 00:00:00 [facility] Influenza Virus 2006-07-26 Completed Universit y of Vaccine 00:00:00 [facility] Influenza Virus 2006-07-26 Completed Universit y of Vaccine 00:00:00 [facility] Influenza Virus Unknown Completed Universit y of Vaccine [facility] Influenza Virus Unknown Completed Universit y of Vaccine [facility] Influenza Virus Unknown Completed Universit y of Vaccine [facility] Influenza Virus Unknown Completed Universit y of Vaccine [facility] Vital Signs Vital Name Observation Time Observation Value Comments Source WEIGHT 2020-03-24 76.658 kg 00:00:00 Systolic blood 2022-11-01 129 mm[Hg] University of pressure 17:28:00 [facility] Diastolic blood 2022-11-01 80 mm[Hg] University o f pressure 17:28:00 [facility] Heart rate 2022-11-01 77 /min University 17:28:00 [facility] Body temperature 2022-11-01 36.67 S[facility]hu [facility] 17:28:00 [facility] Respiratory rate 2022-11-01 20 /min [facility] 17:28:00 [facility] Oxygen saturation 2022-11-01 94 /min [facility] in Arterial blood 17:28:00 [place] [facility] by Pulse oximetry Branch Body weight 2022-10-31 77.1 kg University of 14:00:00 [facility] BMI 2022-10-31 29.18 kg/m2 University of 14:00:00 [facility] Systolic blood 2022-10-08 139 mm[Hg] University of pressure 15:29:00 [facility] Diastolic blood 2022-10-08 85 mm[Hg] University o f pressure 15:29:00 [facility] Heart rate 2022-10-08 72 /min University of 15::00 [facility] Body temperature 2022-10-08 35.56 Sindhu University of 15:29:00 [facility] Respiratory rate 2022-10-08 22 /min University of 15::00 [facility] Oxygen saturation 2022-10-08 96 /min [facility] Arterial blood 15:29:00 [facility] by Pulse oximetry Branch Body height 2022-10-06 162.6 cm University of 22:03:00 [facility] Body weight 2022-10-06 78.926 kg University of 22:03:00 [facility] BMI 2022-10-06 29.87 kg/m2 University of 22:03:00 [facility] Body weight 2022-09-30 70.308 kg University of 17:27:00 [facility] BMI 2022-09-30 29.87 kg/m2 University of 17:27:00 [facility] Systolic blood 2022-08-03 137 mm[Hg] University of pressure 19:29:00 [facility] Diastolic blood 2022-08-03 68 mm[Hg] University o f pressure 19:29:00 [facility] Heart rate 2022-08-03 75 /min University of 19:29:00 [facility] Body temperature 2022-08-03 36.11 Sindhu University of 19:29:00 [facility] Respiratory rate 2022-08-03 16 /min University of 19:29:00 [facility] Body height 2022-08-03 162.6 cm University of 19:29:00 [facility] Body weight 2022-08-03 70.308 kg University of 19:29:00 [facility] BMI 2022-08-03 26.61 kg/m2 University of 19:29:00 [facility] Systolic blood 2022-06-25 150 mm[Hg] University of pressure 16:28:00 [facility] Diastolic blood 2022-06-25 92 mm[Hg] University o f pressure 16:28:00 [facility] Heart rate 2022-06-25 102 /min University of 16:28:00 [facility] Body temperature 2022-06-25 36.5 Sindhu University of 16:28:00 [facility] Respiratory rate 2022-06-25 20 /min University of 16:28:00 [facility] Oxygen saturation 2022-06-25 91 /min University of in Arterial blood 16:28:00 [facility] by Pulse oximetry [place] Body weight 2022-06-21 71.215 kg University of 15:26:00 [facility] BMI 2022-06-21 26.13 kg/m2 University of 15::00 [facility] Body height 2022-06-20 165.1 cm University of 18:31:00 [facility] Systolic blood 2022-06-24 184 mm[Hg] University of pressure 12:28:00 beena/[facility] [place] [facility] at [place] bedside Diastolic blood 2022-06-24 105 mm[Hg] dr Hernandez o f pressure 12:28[facility] [place] [facility] Heart rate 2022-06-24 79 /min University of 12:28:00 [facility] Body temperature 2022-06-24 36.5 Snidhu University of 12:28:00 [facility] Respiratory rate 2022-06-24 20 /min University of 12:28:00 [facility] Oxygen saturation 2022-06-24 95 /min University in Arterial blood 12:28:00 [facility] by Pulse oximetry [place] Body weight 2022-06-21 71.215 kg University of 15::00 [facility] BMI 2022-06-21 26.13 kg/m2 University of 15::00 [facility] Body height 2022-06-20 165.1 cm University of 18:31:00 [facility] Systolic blood 2021-05-11 156 mm[Hg] University of pressure 01:25:00 [facility] Diastolic blood 2021-05-11 77 mm[Hg] University o f pressure 01:25:00 [facility] Heart rate 2021-05-11 65 /min University of 01:25:00 [facility] Body temperature 2021-05-11 36.94 Sindhu [facility] 01:25:00 [facility] Respiratory rate 2021-05-11 18 /min [facility] 01:25:00 [facility] Oxygen saturation 2021-05-11 96 /min [facility] in Arterial blood 01:25:00 [facility] by Pulse oximetry [place] Body weight 2021-05-10 68.04 kg [facility] 12:50:00 [facility] WEIGHT 2020-03-24 76.658 kg 00:00:00 Procedures Procedure Date / Time Performing Clinician Source Performed HOME HEALTH - OTHER 2022-11-11 Doctor Unassigned, Universit y of 06:01:00 [place] [facility] EXTERNAL PROVIDER RECORDS 2022-11-10 Doctor Unassigned, Uni versity of 06:01:00 [place] [facility] COVID-19 (ID NOW RAPID 2022-11-01 Gilbert Gerardo [facility] y of TESTING) 19:31:00 [facility] POCT GLUCOSE (AUTOMATED) 2022-11-01 Jarvis Sharp [employer] [facility] of 17:45:00 [facility] POCT GLUCOSE (AUTOMATED) 2022-11-01 Jarvis Sharp [employer] [facility] of 13:54:00 [facility] POCT GLUCOSE (AUTOMATED) 2022-11-01 Jarvis Sharp [employer] [facility] of 01:54:00 [facility] POCT GLUCOSE (AUTOMATED) 2022-10-31 Jarvis Sharp [employer] [facility] of 22:16:00 [facility] POCT GLUCOSE (AUTOMATED) 2022-10-31 Jarvis Sharp [employer] [facility] of 17:38:00 [facility] POCT GLUCOSE (AUTOMATED) 2022-10-31 Jarvis Sharp [employer] [facility] of 14:35:00 [facility] POCT GLUCOSE (AUTOMATED) 2022-10-31 Jarvis Sharp [employer] [facility] of 03:26:00 [facility] POCT GLUCOSE (AUTOMATED) 2022-10-30 Jarvis Sharp [employer] [facility] of 17:29:00 [facility] POCT GLUCOSE (AUTOMATED) 2022-10-30 [facility] [employer] [facility] of 13:45:00 [facility] CBC WITHOUT DIFF 2022-10-30 Nini Mednenhall [place] of 10:52:00 [facility] POCT GLUCOSE (AUTOMATED) 2022-10-30 Jarvis Sharp [employer] [facility] of 01:54:00 [facility] POCT GLUCOSE (AUTOMATED) 2022-10-29 Jarvis Sharp [employer] [facility] of 22:49:00 [facility] POCT GLUCOSE (AUTOMATED) 2022-10-29 Jarvis Sharp [employer] [facility] of 17:47:00 [facility] POCT GLUCOSE (AUTOMATED) 2022-10-29 Jarvis Sharp [employer] [facility] of 13:45:00 [facility] POCT GLUCOSE (AUTOMATED) 2022-10-29 Jarvis Sharp [facility] of 02:03:00 [facility] POCT GLUCOSE (AUTOMATED) 2022-10-28 Jarvis Sharp [employer] [facility] of 23:28:00 [facility] POCT GLUCOSE (AUTOMATED) 2022-10-28 Jarvis Sharp [employer] [facility] of 18:24:00 [facility] POCT GLUCOSE (AUTOMATED) 2022-10-28 Jarvis Sharp [employer] [facility] of 14:36:00 [facility] BASIC METABOLIC PANEL (NA, K, 2022-10-28 [facility] of CL, CO2, GLUCOSE, BUN, 10:14:00 [facility] ical CREATININE, CA) Branch CBC WITH DIFF 2022-10-28 [facility] of 10:14:00 [facility] POCT GLUCOSE (AUTOMATED) 2022-10-28 Jarvis Sharp [employer] [facility] of 02:04:00 [facility] POCT GLUCOSE (AUTOMATED) 2022-10-27 Jarvis Sharp [employer] [facility] of 22:35:00 [facility] POCT GLUCOSE (AUTOMATED) 2022-10-27 Jarvis Sharp [employer] [facility] of 17:33:00 [facility] POCT GLUCOSE (AUTOMATED) 2022-10-27 Jarvis Sharp [employer] [facility] of 14:41:00 [facility] POCT GLUCOSE (AUTOMATED) 2022-10-27 Jarvis Sharp [facility] of 03:31:00 [facility] POCT GLUCOSE (AUTOMATED) 2022-10-26 Raul Rosen sity of 22:30:00 [facility] POCT GLUCOSE (AUTOMATED) 2022-10-26 Raul Rosen Univer sity of 17:32:00 [facility] POCT GLUCOSE (AUTOMATED) 2022-10-26 Raul Rosen Univer sity of 13:26:00 [facility] BASIC METABOLIC PANEL (NA, K, 2022-10-26 [facility] of CL, CO2, GLUCOSE, BUN, 11:36:00 [facility] ica CREATININE, CA) Branch CBC WITH DIFF 2022-10-26 [facility] of 11:36:00 [facility] MAGNESIUM 2022-10-26 [facility] of 02:30:00 [facility] BASIC METABOLIC PANEL (NA, K, 2022-10-26 [facility] of CL, CO2, GLUCOSE, BUN, 02:30:00 [facility] ica CREATININE, CA) Branch POCT GLUCOSE (AUTOMATED) 2022-10-26 Raul Rosen Univer sity of 01:48:00 [facility] POCT GLUCOSE (AUTOMATED) 2022-10-25 Raul Rosen Univer sity of 22:14:00 [facility] POCT GLUCOSE (AUTOMATED) 2022-10-25 Raul Rosen Univer sity of 17:33:00 [facility] ROSIO AURIS SURVEILLANCE BY 2022-10-25 Aleksandr Borja iversity of PCR (INFECTION CONTROL 15:47:00 [facility] ica PURPOSES) Branch POCT GLUCOSE (AUTOMATED) 2022-10-25 Raul Rosen Univer sity of 14:25:00 [facility] POCT GLUCOSE (AUTOMATED) 2022-10-25 Raul Rosen Univer sity of 13:36:00 [facility] CT ANGIOGRAM HEAD 2022-10-25 Liza Quiroz of 10:18:30 [facility] CT HEAD WO CONTRAST 2022-10-25 Nini Mendenhall of 10:18:30 [facility] CT ANGIOGRAM NECK 2022-10-25 Liza Quiroz [place] of 10:18:30 [facility] BASIC METABOLIC PANEL (NA, K, 2022-10-25 Nini Mendenhall [facility] of CL, CO2, GLUCOSE, BUN, 09:42:00 [facility] ical CREATININE, [place]) [place] CBC WITH DIFF 2022-10-25 Nini Mendenhall [place] of 09:42:00 [facility] PROTHROMBIN TIME / INR 2022-10-25 Abdirashid [facility]ly [facility] ty of 09:42:00 [facility] ACTIVATED PARTIAL THRMPLAS 2022-10-[address] [facility] ersity of ANUSHA 09:42:00 [facility] FIBRINOGEN 2022-10-25 Abdirashid [facility] of 09:42:00 [facility] XR ELBOW <3 VW LEFT 2022-10-25 Liza Quiroz o f 02:12:03 [facility] XR SHOULDER <2 VW LEFT 2022-10-25 Liza Quiroz [facility] y of 02:12:03 [facility] XR WRIST 3+ VW LEFT 2022-10-25 Liza Quiroz o f 02:12:[address] [facility] [address] HEAD WO CONTRAST 2022-10-25 Liza Quiroz o f 01:45:02 [facility] URINE CULTURE 2022-10-25 Liza Quiroz [place] of 00:42:00 [facility] HB ECG ROUTINE & RHYTHM STRIP 2022-10-25 Liza Quiroz iversity of 00:38:10 [facility] URINALYSIS 2022-10-25 Liza Quiroz of 00:32:00 [facility] LIPASE 2022-10-25 Liza Quiroz of 00:12:00 [facility] MAGNESIUM 2022-10-25 Liza Quiroz [place] of 00:12:00 [facility] TROPONIN I 2022-10-25 Liza Quiroz [place] of 00:12:00 [facility] COMP. METABOLIC PANEL (64553) 2022-10-25 Liza Quiroz iversity of 00:12:00 [facility] CBC WITH DIFF 2022-10-25 Liza Quiroz of 00:12:00 [facility] PROTHROMBIN TIME / INR 2022-10-25 Liza Quiroz [facility] y of 00:12:00 [facility] N-TERMINAL PRO-BNP 2022-10-25 Liza Quiroz [place] of 00:12:00 [facility] EMERGENCY DEPARTMENT 2022-10-24 Doctor UnassChristina jeffries of DOCUMENTS 06:01:00 [place] [facility] COVID-19 (ID NOW RAPID 2022-10-08 Adelaide Grossman [facility] y of TESTING) 14:58:00 [facility] COVID-19 (ID NOW RAPID 2022-10-08 Adelaide Grossman [facility] y of TESTING) 14:58:00 [facility] LAB ONLY COVID INTERPRETATION 2022-10-08 Adelaide Grossman Un iversity of 14:58:00 [facility] POCT GLUCOSE (AUTOMATED) 2022-10-08 [place], [facility] of 14:55:00 [facility]) 2022-10-08 [place], [facility] of 14:55:00 [facility] POCT GLUCOSE (AUTOMATED) 2022-10-08 [place], [facility] of 03:51:00 [facility] POCT GLUCOSE (AUTOMATED) 2022-10-08 [place], [facility] it[facility] of 03:51:00 [facility] POCT GLUCOSE (AUTOMATED) 2022-10-08 [place], [facility] ity of 03:10:00 [facility] POCT GLUCOSE (AUTOMATED) 2022-10-08 [place], [facility] ity of 03:10:00 [facility] COVID-19 (ID NOW RAPID 2022-10-07 Adelaide Grossman [facility] y of TESTING) 20:42:00 [facility] LAB ONLY COVID INTERPRETATION 2022-10-07 Adelaide Grossman Un iversity of 20:42:00 [facility] COVID-19 (ID NOW RAPID 2022-10-07 Adelaide Grossman [facility] y of TESTING) 20:42:00 [facility] LAB ONLY COVID INTERPRETATION 2022-10-07 Adelaide Grossman Un iversity of 20:42:00 [facility] HB ECG ROUTINE & RHYTHM STRIP 2022-10-07 Chandra Betancourt iversity of 14:09:51 [facility] HB ECG ROUTINE & RHYTHM STRIP 2022-10-07 [place], iversity of 14:09:51 [facility] MAGNESIUM 2022-10-07 [facility] of 11:05:00 [facility] BASIC METABOLIC PANEL (NA, K, 2022-10-07 Chauncey [place] Un iversity of CL, CO2, GLUCOSE, BUN, 11:05:00 [place] [facility] CREATININE, [place]) Branch CBC WITH DIFF 2022-10-07 [facility] of 11:05:00 [facility] MAGNESIUM 2022-10-07 [facility] of 11:05:00 [facility] BASIC METABOLIC PANEL (NA, K, 2022-10-07 [place] Un iversity of CL, CO2, GLUCOSE, BUN, 11:05:00 [place] [facility] CREATININE, CA) Branch CBC WITH DIFF 2022-10-07 [facility] of 11:05:[address] [facility] [address] HEAD WO CONTRAST 2022-10-06 [facility] o f 21:38:43 [facility] [address] HEAD WO CONTRAST 2022-10-06 [facility] o f 21:38:43 [facility] XR CHEST 1 VW 2022-10-06 [facility] of 18:00:00 [facility] XR CHEST 1 VW 2022-10-06 [facility] of 18:00:00 [facility] CARDIAC [facility]HETERIZATION 2022-10-[facility] of 15:30:17 [facility] ELECTROPHYSIOLOGY PROCEDURE 2022-10-06 [facility] ersity of 15:30:17 [facility] ELECTROPHYSIOLOGY PROCEDURE 2022-10-06 [facility] ersity of 15:30:17 [facility] CARDIAC CATHETERIZATION 2022-10-[facility] 15:30:17 [facility] ELECTROPHYSIOLOGY PROCEDURE 2022-10-06 [facility], [facility] ersity of 15:30:17 [facility] ELECTROPHYSIOLOGY PROCEDURE 2022-10-06 [place], [facility] ersity of 15:30:17 [facility] CBC WITH DIFF 2022-10-03 [place] of 17:03:00 [facility] PROTHROMBIN TIME / INR 2022-10-03 [place] 17:03:00 [facility] HB ECG ROUTINE & RHYTHM STRIP 2022-08-03 Chandra Betancourt iversity of 19:36:45 [facility] ASSIGNMENT OF BENEFITS 2022-08-03 Doctor Unassigned, Univer sity of 17:21:11 [place] [facility] EXTERNAL PROVIDER RECORDS 2022-07-07 Doctor Unassigned, Uni versity of 05:01:00 [place] [facility] POCT GLUCOSE (AUTOMATED) 2022-06-25 [facility] ersity of 17:11:00 [facility] POCT GLUCOSE (AUTOMATED) 2022-06-25 [facility] ersity of 17:11:00 [facility] POCT GLUCOSE (AUTOMATED) 2022-06-25 [facility] ersity of 14:07:00 [facility] POCT GLUCOSE (AUTOMATED) 2022-06-25 [facility] ersity of 14:07:00 [facility] MAGNESIUM 2022-06-25 Gita [facility] of 10:22:00 [facility] BASIC METABOLIC PANEL (NA, K, 2022-06-25 Gita [place] Un iversity of CL, CO2, GLUCOSE, BUN, 10:22:00 [place] [facility] CREATININE, CA) Branch CBC WITHOUT DIFF 2022-06-25 Gita [facility] of 10:22:00 [facility] MAGNESIUM 2022-06-25 Gita [facility] of 10:22:00 [facility] BASIC METABOLIC PANEL (NA, K, 2022-06-25 Gita Michelle Un iversity of CL, CO2, GLUCOSE, BUN, 10:22:00 [place] [facility] CREATININE, CA) Branch CBC WITHOUT DIFF 2022-06-25 Gita [facility] of 10:22:00 [facility] POCT GLUCOSE (AUTOMATED) 2022-06-25 [facility] ersity of 01:29:00 [facility] POCT GLUCOSE (AUTOMATED) 2022-06-25 [facility] ersity of 01:29:00 [facility] POCT GLUCOSE (AUTOMATED) 2022-06-24 Alverto, [facility] ersity of 22:20:00 [facility] POCT GLUCOSE (AUTOMATED) 2022-06-24 [facility] ersity of 22:20:00 [facility] POCT GLUCOSE (AUTOMATED) 2022-06-24 [facility] ersity of 18:06:00 [facility] POCT GLUCOSE (AUTOMATED) 2022-06-24 [facility], [facility] ersity of 18:06:00 [facility] CBC WITHOUT DIFF 2022-06-24 Gita [facility] of 17:27:00 [facility] CBC WITHOUT DIFF 2022-06-24 [facility] of 17:27:00 [facility] MAGNESIUM 2022-06-24 [facility] of 17:26:00 [facility] BASIC METABOLIC PANEL (NA, K, 2022-06-24 [facility] Un iversity of CL, CO2, GLUCOSE, BUN, 17:26:00 [place] [facility] CREATININE, CA) Branch MAGNESIUM 2022-06-24 Gita [facility] of 17:26:00 [facility] BASIC METABOLIC PANEL (NA, K, 2022-06-24 [facility] [place] Un iversity of CL, CO2, GLUCOSE, BUN, 17:26:00 [place] [facility] CREATININE, CA) Branch ELECTROPHYSIOLOGY PROCEDURE 2022-06-24 [facility] of 13:36:26 [facility] ELECTROPHYSIOLOGY PROCEDURE 2022-06-24 [facility] ersity of 13:36:26 [facility] POCT GLUCOSE (AUTOMATED) 2022-06-24 Alverto [facility] ersity of 13:01:00 [facility] POCT GLUCOSE (AUTOMATED) 2022-06-24 [facility] ersity of 13:01:00 [facility] POCT GLUCOSE (AUTOMATED) 2022-06-24 [place] Uni versity of 03:58:00 [facility] POCT GLUCOSE (AUTOMATED) 2022-06-24 [place] Uni versity of 03:58:00 [facility] URINALYSIS 2022-06-23 Gita [facility] of 22:59:00 [facility] URINALYSIS 2022-06-23 Gita [facility] of 22:59:00 [facility] POCT GLUCOSE (AUTOMATED) 2022-06-23 [place] Uni versity of 22:38:00 [facility] POCT GLUCOSE (AUTOMATED) 2022-06-23 [place] Uni versity of 22:38:00 [facility] POCT GLUCOSE (AUTOMATED) 2022-06-23 [place] Uni versity of 17:07:00 [facility] POCT GLUCOSE (AUTOMATED) 2022-06-23 [place] Uni versity of 17:07:00 [facility] POCT GLUCOSE (AUTOMATED) 2022-06-23 [place] Uni versity of 12:31:00 [facility] POCT GLUCOSE (AUTOMATED) 2022-06-23 [place] Uni versity of 12:31:00 [facility] MAGNESIUM 2022-06-23 [facility] 09:22:00 [facility] BASIC METABOLIC PANEL (NA, K, 2022-06-23 Marlys [place] Un iversity of CL, CO2, GLUCOSE, BUN, 09:22:00 [place] [facility] CREATININE, CA) Branch CBC WITHOUT DIFF 2022-06-23 Gita [facility] of 09:22:00 [facility] MAGNESIUM 2022-06-23 Gita [facility] of 09:22:00 [facility] BASIC METABOLIC PANEL (NA, K, 2022-06-23 Marlys Pelayoah Un iversity of CL, CO2, GLUCOSE, BUN, 09:22:00 [place] [facility] CREATININE, CA) Branch CBC WITHOUT DIFF 2022-06-23 [facility] 09:22:00 [facility] HB ECG ROUTINE & RHYTHM STRIP 2022-06-23 Fawad Muñoz [place] of 04:21:59 [facility] HB ECG ROUTINE & RHYTHM STRIP 2022-06-23 Fawad Muñoz [facility] of 04:21:59 [facility] POCT GLUCOSE (AUTOMATED) 2022-06-23 [place] Uni versity of 02:30:00 [facility] POCT GLUCOSE (AUTOMATED) 2022-06-23 [place] Uni versity of 02:30:00 [facility] PHOSPHORUS 2022-06-22 [facility] 22:43:00 [facility] PHOSPHORUS 2022-06-22 [facility] of 22:43:00 [facility] METANEPHRINES, PLASMA 2022-06-22 Michelle Pelayo [place] of 22:42:00 [facility] POCT GLUCOSE (AUTOMATED) 2022-06-22 [place] Uni versity of 21:59:00 [facility] POCT GLUCOSE (AUTOMATED) 2022-06-22 [place] Uni versity of 21:59:00 [facility] POCT GLUCOSE (AUTOMATED) 2022-06-22 [place] Uni versity of 16:52:00 [facility] POCT GLUCOSE (AUTOMATED) 2022-06-22 [place] Uni versity of 16:52:00 [facility] POCT GLUCOSE (AUTOMATED) 2022-06-22 [place] Uni versity of 13:13:00 [facility] POCT GLUCOSE (AUTOMATED) 2022-06-22 [place] Uni versity of 13:13:00 [facility] MAGNESIUM 2022-06-22 Bin Gomez of 10:07:00 [facility] FERRITIN SERUM 2022-06-22 [facility] of 10:07:00 [facility] VITAMIN B12, LEVEL 2022-06-22 [facility] of 10:07:00 [facility] BASIC METABOLIC PANEL (NA, K, 2022-06-22 Bin Gomez iversity of CL, CO2, GLUCOSE, BUN, 10:07:00 [facility] ical CREATININE, CA) Branch IRON PANEL 2022-06-22 Saf[place], [facility] of 10:07:00 [facility] CBC WITH DIFF 2022-06-22 [facility] of 10:07:00 [facility] MAGNESIUM 2022-06-22 [facility] of 10:07:00 [facility] FERRITIN SERUM 2022-06-22 [facility] of 10:07:00 [facility] VITAMIN B12, LEVEL 2022-06-22 [facility] of 10:07:00 [facility] BASIC METABOLIC PANEL (NA, K, 2022-06-22 Mery Gomezid Un iversity of CL, CO2, GLUCOSE, BUN, 10:07:00 [facility] ical CREATININE, CA) [place] IRON PANEL 2022-06-22 [facility] of 10:07:00 [facility] CBC WITH DIFF 2022-06-22 [facility] of 10:07:00 [facility] POCT GLUCOSE (AUTOMATED) 2022-06-22 Ca Meléndez Uni versity of 00:54:00 [facility] POCT GLUCOSE (AUTOMATED) 2022-06-22 Ca Meléndez Uni versity of 00:54:00 [facility] POCT GLUCOSE (AUTOMATED) 2022-06-21 Srinath Cohen ity of 21:48:00 [facility] POCT GLUCOSE (AUTOMATED) 2022-06-21 Srinath Cohen ity of 21:48:00 [facility] HB ECG ROUTINE & RHYTHM STRIP 2022-06-21 Bin Gomez Un iversity of 19:13:25 [facility] HB ECG ROUTINE & RHYTHM STRIP 2022-06-21 Bin Gomez Un iversity of 19:13:25 [facility] TRANSTHORACIC ECHO (TTE) 2022-06-21 Bin Gomez Univers ity of COMPLETE W/ CONTRAST 16:58:45 [facility] TRANSTHORACIC ECHO (TTE) 2022-06-21 Bin Gomez Univers ity of COMPLETE W/ CONTRAST 16:58:45 [facility] POCT GLUCOSE (AUTOMATED) 2022-06-21 Srinath Cohen ity of 16:35:00 [facility] POCT GLUCOSE (AUTOMATED) 2022-06-21 Srinath Cohen ity of 16:35:00 [facility] THYROID STIMULATING HORMONE 2022-06-21 [facility] ersity of 12:08:00 [facility] COMP. METABOLIC PANEL ([id number]) 2022-06-21 Anastasiya Tapia [place] of 12:08:00 [facility] CBC WITH DIFF 2022-06-21 Anastasiya Tapia [place] of 12:08:00 [facility] GLYCOSYLATED HEMOGLOBIN (A1C) 2022-06-21 [facility]ery mistryid Un iversity of 12:08:00 [facility] THYROID STIMULATING HORMONE 2022-06-21 [facility] ersity of 12:08:00 [facility] COMP. METABOLIC PANEL ([id number]) 2022-06-21 Anastasiya Tapia [place] of 12:08:00 [facility] CBC WITH DIFF 2022-06-21 Anastasiya Tapia [facility] of 12:08:00 [facility] GLYCOSYLATED HEMOGLOBIN (A1C) 2022-06-21 Bin Gomez iversity of 12:08:00 [facility] COVID-19 (ID NOW RAPID 2022-06-21 Anastasiya Tapia [facility] sity of TESTING) 07:07:00 [facility] LAB ONLY COVID INTERPRETATION 2022-06-21 Anastasiya Tapia [place] of 07:07:00 [facility] COVID-19 (ID NOW RAPID 2022-06-21 Anastasiya Tapia [facility] sity of TESTING) 07:07:00 [facility] LAB ONLY COVID INTERPRETATION 2022-06-21 Anastasiya Tapia [place] of 07:07:00 [facility] LACTIC ACID WHOLE BLOOD 2022-06-21 Srinath Cohen [facility] ty of 04:05:00 [facility] LACTIC ACID WHOLE BLOOD 2022-06-21 Srinath Cohen [facility] ty of 04:05:[address] [facility] [address] HEAD WO CONTRAST 2022-06-21 Srinath Cohen [place] f 00:42:20 [facility] CT HEAD WO CONTRAST 2022-06-21 Singer Srinath [place] o f 00:42:20 [facility] ELECTROENCEPHALOGRAM 2022-06-21 [facility] of 00:00:00 [facility] ELECTROENCEPHALOGRAM 2022-06-21 [facility] of 00:00:00 [facility] LACTIC ACID WHOLE BLOOD 2022-06-20 Srinath Cohen [facility] ty of 23:59:00 [facility] LACTIC ACID WHOLE BLOOD 2022-06-20 [facility] of 23:59:00 [facility] CT ANGIOGRAM ABDOMEN/PELVIS 2022-06-20 Singer [facility] ersity of 20:21:56 [facility] CT ANGIOGRAM ABDOMEN/PELVIS 2022-06-20 Singer [facility] ersity of 20:21:[address] [facility] URINALYSIS 2022-06-20 Singer [facility] of 19:04:00 [facility] URINE CULTURE 2022-06-20 Singer [facility] of 19:04:00 [facility] URINALYSIS 2022-06-20 Singer [facility] of 19:04:00 [facility] URINE CULTURE 2022-06-20 Singer [facility] of 19:04:00 [facility] XR CHEST 1 VW 2022-06-20 Singer [facility] of 18:50:20 [facility] XR CHEST 1 VW 2022-06-20 Singer [facility] of 18:50:20 [facility] BLOOD CULTURE SCREEN 2022-06-20 Singer [facility] of 18:46:00 [facility] BLOOD CULTURE SCREEN 2022-06-20 Singer [facility] of 18:46:[address] [facility] BLOOD CULTURE SCREEN 2022-06-20 Singer [facility] of 18:39:[address] [facility] TROPONIN I 2022-06-20 Singer [facility] of 18:39:[address] [facility] COMP. METABOLIC PANEL ([id number]) 2022-06-20 Srinath Cohen iversity of 18:39:[address] [facility] CBC WITH DIFF 2022-06-20 [facility] [facility] Branch BLOOD CULTURE SCREEN 2022-06-20 [facility] of 18:39:[address] [facility] TROPONIN I 2022-06-20 [facility] of 18:39:00 [facility] COMP. METABOLIC PANEL (20199) 2022-06-20 Srinath Cohen [facility] of 18:39:00 [facility] CBC WITH DIFF 2022-06-20 [facility] of 18:39:00 [facility] EKG-12 LEAD 2022-06-20 [facility] of 18:38:36 [facility] EKG-12 LEAD 2022-06-20 [facility] of 18:38:36 [facility] LACTIC ACID WHOLE BLOOD 2022-06-20 Cohen Srinath [facility] ty of 18:38:00 [facility] LACTIC ACID WHOLE BLOOD 2022-06-20 [facility] ty of 18:38:00 [facility] EMERGENCY DEPARTMENT 2022-06-20 Doctor Unassigned, Universi ty of DOCUMENTS 05:01:00 [place] [facility] HOSPITAL ADMISSION 2022-06-20 Doctor Unassigned, University of 05:01:00 [place] [facility] ASSIGNMENT OF BENEFITS 2021-05-07 Doctor Unassigned, [facility] of 21:31:03 [place] [facility] Plan of Care Planned Activity [...] 00:00:00 measurement Medical Center (procedure) [code = 75271209] Future Scheduled 2020-09-[address] [facility] 00:[facility]00 [facility] (procedure) [code = 64980829] Future Scheduled 2020-09-[address] [facility] 00:00:00 [facility] (procedure) [code = 70619826] Future Scheduled 2020-09-[address] [facility] 00:00:00 [facility] (procedure) [code = 75057100] Future Scheduled 2020-09-[address] [facility] 00:00:00 [facility] (procedure) [code = 02188243] Future Scheduled 2020-09-[address] [facility] 00:00:00 [facility] (procedure) [code = 87090389] Future Scheduled 2020-09-[address] [facility] 00:00:00 [facility] (procedure) [code = 36945078] Future Scheduled 2020-09-[address] [facility] 00:00:00 [facility] (procedure) [code = 22742118] Future Scheduled 2020-09-[address] [facility] 00:00:00 [facility] Center (procedure) [code = 65805869] Future Scheduled 2020-09-[address] [facility] 00:00:00 [facility] (procedure) [code = 73828580] Future Scheduled 2020-09-[address] [facility] 00:00:00 [facility] (procedure) [code = 13602104] Future Scheduled 2020-09-[address] [facility] 00:00:00 measurement [facility] Center (procedure) [code = 85621915] Future Scheduled 2020-09-[address] [facility] 00:00:00 measurement Medical Center (procedure) [code = 67286380] Future Scheduled 2020-09-[address] [...] 00:00:00 (1 of 1 - Medical Center [id number] PCV13) [code = PNEUMOCOCCAL 65+ YRS (1 of 1 - [id number] PCV13)] Future Scheduled 2002 PNEUMOCOCCAL 65+ YRS [facility] 00:00:00 (1 of 1 - Medical Center [id number] PCV13) [code = PNEUMOCOCCAL 65+ YRS (1 of 1 - [id number]_[id number] PCV13)] Future Scheduled 1999-11-11 MEDICARE ANNUAL [facility] [...] - Tdap)] Future Scheduled 1956 DTAP/TDAP/TD VACCINES [facility] 00:00:00 (1 - Tdap) [code = Medical C enter DTAP/TDAP/TD VACCINES (1 - Tdap)] Future Scheduled 1956 DTAP/TDAP/TD VACCINES [facility] 00:00:00 (1 - Tdap) [code = Medical C enter DTAP/TDAP/TD VACCINES (1 - Tdap)] Future Scheduled 1956 DTAP/TDAP/TD VACCINES [facility] 00:00:00 (1 - [...] 00:00:00 protein (procedure) Medical Center [code = 201330541] Future Scheduled [address] DIABETIC EYE EXAM [facility] 00:00:00 [code = DIABETIC EYE Medical Center EXAM] Future Scheduled 1947 Urine screening for [facility] 00:00:00 protein (procedure) Medical Center [code = 984152978] Future Scheduled [address] EYE EXAM [facility] 00:00:00 [code = DIABETIC EYE Medical Center EXAM] Future Scheduled 1947 Urine screening [facility] 00:00:00 protein (procedure) Medical Center [code = 475314477] Future Scheduled [address] EYE EXAM [facility] 00:00:00 [code = DIABETIC EYE Medical Center EXAM] Future Scheduled 1947 Urine screening [facility] 00:00:00 protein (procedure) Medical Center [code = 755393891] Future Scheduled [address] EYE EXAM [facility] 00:00:00 [code = DIABETIC EYE Medical Center EXAM] Future Scheduled 1947 Urine screening [facility] 00:00:00 protein (procedure) Medical Center [code = 976158070] Future Scheduled [address] EYE EXAM [facility] 00:00:00 [code = DIABETIC EYE Medical Center EXAM] Future Scheduled 1947 Urine screening [facility] 00:00:00 protein (procedure) Medical Center [code = 716876674] Future Scheduled [address] EYE EXAM [facility] 00:00:00 [code = DIABETIC EYE Medical Center EXAM] Future Scheduled 1947 Urine screening for [facility] 00:00:00 protein (procedure) Medical Center [code = 779699517] Future Scheduled [address] EYE EXAM [facility] 00:00:00 [code = DIABETIC EYE Medical Center EXAM] Future Scheduled 1947 Urine screening [facility] 00:00:00 protein (procedure) Medical Center [code = 400254430] Future Scheduled [address] EYE EXAM [facility] 00:00:00 [code = DIABETIC EYE Medical Center EXAM] Future Scheduled 1947 Urine screening for [facility] 00:00:00 protein (procedure) Medical Center [code = 982406971] Future Scheduled [address] EYE EXAM [facility] 00:00:00 [code = DIABETIC EYE Medical Center EXAM] Future Scheduled 1947 Urine screening for [facility] 00:00:00 protein (procedure) Medical Center [code = 127927460] Future Scheduled [address] EYE EXAM [facility] 00:00:00 [code = DIABETIC EYE Medical Center EXAM] Future Scheduled 1947 Urine screening for [facility] 00:00:00 protein (procedure) Medical Center [code = 314786681] Future Scheduled [address] EYE EXAM [facility] 00:00:00 [code = DIABETIC EYE Medical Center EXAM] Future Scheduled 1947 Urine screening [facility] 00:00:00 protein (procedure) Medical Center [code = 059453191] Future Scheduled [address] EYE EXAM [facility] 00:00:00 [code = DIABETIC EYE Medical Center EXAM] Future Scheduled 1947 Urine screening for [facility] 00:00:00 protein (procedure) Medical Center [code = 708980105] Future Scheduled 1943 PNEUMOCOCCAL 65+ YRS [facility] [...] [facility] Test 00:00:00 [code = COVID-[address] VACCINE (#1)] Future Scheduled 1937 COVID-19 [...] DXA [facility] 00:00:00 SCAN] [facility] Center Future Scheduled 1937 DXA [...] DXA [facility] 00:00:00 SCAN] [facility] Center Future Scheduled 1937 DXA SCAN [code = DXA [facility] 00:00:00 SCAN] [facility] Center Future Scheduled 1937 DXA SCAN [code = DXA [facility] 00:00:00 SCAN] [facility] Center Encounters Start End Encounter Admission Attending Care Care Encounter Source Date/Time Date/Time Type Type Clinicians Facility Department ID 2022-10-12 Outpatient [facility] [id number] [place] 11:19:01 [id number] [facility] 2020-03-24 [facility] [id number] [facility] 23:52:00 JUAQUIN Med 2023-07-24 2023-07-24 Outpatient R HARINI BETANCOURT [facility] [id number] Univers 13:20:00 13:46:06 HARINI BETANCOURT [facility] 2023-07-24 2023-07-24 Nurse Visit, [facility] Nurse [facility] 1.2.840.1 [id number] [facility] 13:20:00 13:46:06 Visit Harini Betancourt [place] 350.1 .13.10 [facility] [place] [phone] Ri dical NAL 059 [facility] 2023-07-12 2023-07-12 Outpatient GC_GCBZW_Ka PRIV PRIV [id number] [facility] 00:00:00 00:00:00 diyala_S [id number] Medic al 2023-03-09 2023-03-09 Outpatient R HARINI BETANCOURT [facility] [id number] Univers 10:30:00 23:59:00 HARINI BETANCOURT [facility] 2022-12-22 2022-12-22 Outpatient R TISH [facility] [id number] Univers 00:00:00 00:00:[address] [facility] 2022-11-11 2022-11-11 Hospital ELIAS Martin 1.2.840.114 [id number] Univers 07:05:00 23:59:00 Encounter Inez Montejo 350.1.13.10 ity of [facility] 4.2.7.2.686 Shawn as [phone] [facility] 031 Branch 2022-11-11 2022-11-11 [facility] [id number] Univers 00:00:00 23:59:[address] [facility] 2022-11-11 2022-11-11 Orders Doctor TRENT 1.2.840.114 [id number] Univers 00:00:00 00:00:00 Only Unassigned, RAYA 350.1.13.10 ity of [place] [facility] 4.2.7.2.686 Shawn as [phone] [facility] 009 Branch 2022-11-10 2022-11-10 Orders Doctor TRENT 1.2.840.114 [id number] Univers 00:00:00 00:00:00 Only Unassigned, RAYA 350.1.13.10 ity of [place] [facility] 4.2.7.2.686 Shawn as [phone] [facility] 00[address] [place] 2022-10-24 2022-11-01 Inpatient X [facility] [id number] Univers 17:16:00 17:33:00 [facility] 2022-10-24 2022-11-01 [facility] Liza Quiroz 1.2.840.11 [id number] Univers 17:16:00 17:33:00 Encounter Raul Rosen 350.1.13.10 ity of [facility] 4.2.7.2.686 [place] [id number] [facility] 098 Branch 2022-10-11 2022-10-11 Telephone Asia [facility] 1.2.840.114 [id number] Univers 00:00:00 00:00:00 [facility] 350.1.13.10 ity of [place] [id number] [facility] 059 Branch OFFICE BUILDING 2022-10-06 2022-10-08 Outpatient R KATE, [facility] [id number] Univers 06:20:00 13:18:00 DAYAMI ity of [facility] 2022-10-06 2022-10-08 Hospital Harini Betancourt 1 .2.840.114 [id number] Univers 06:20:00 13:18:00 Encounter Dayami Love Castillo RAYA 350.1.1 3.10 ity of [facility] 4.2.7.2.686 Shawn as [id number] [facility] [address] [place] 2022-10-06 2022-10-06 Surgery VIKTORIA Betancourt 1.2.840.114 [id number] Univers 08:00:00 09:45:00 Chocksneha RAYA 350.1.13.10 ity of [facility] 4.2.7.2.686 Shawn as [id number] [facility] 840 [place] 2022-10-03 2022-10-03 Per Diem Physical Therapist Assistant Criss, Mark Lab Main [facility] 1.2.8 40.114 [id number] Univers 10:30:00 10:45:00 Visit Harini Betancourt 350.1 .13.10 ity [facility] 4[place].2.[place] [facility] [id number] Ri dical NAL 353 Branch BUILDING 2022-10-03 2022-10-03 Outpatient R HARINI BETANCOURT [facility] [id number] Univers 10:30:00 10:30:[address] [facility] 2022-09-13 2022-09-13 Telephone VIKTORIA Betancourt 1.2.840.114 [id number] Univers 00:00:00 00:00:00 Maria Elena DOS SANTOS 350.1.13.10 ity of [facility] 4.2.7.2.686 Shawn as [phone] [place] [address] [place] 2022-08-08 2022-08-08 Telephone VIKTORIA Betancourt 1.2.840.114 [id number] Univers 00:00:00 00:00:00 Choelgin SOY 350.1.13.10 ity of [facility] 4.2.7.2.686 Shawn as [id number] [facility] [address] [place] 2022-08-03 2022-08-03 [facility] VIKTORIA Betancourt 1.2.840.114 [id number] Univers 11:00:00 23:59:00 Encounter Maria Elena SOY 350.1.13.10 ity of [facility] 4.2.7.2.686 Shawn as [phone] [facility] [address] [place] 2022-08-03 2022-08-03 Office SHARIF Betancourt 1.2.840.114 [id number] Univers 13:00:00 13:15:00 Visit Maria Elena [facility] 350.1.13.10 ity of [facility] 4.2.7.2.[place] [id number] [facility] [address] [place] 2022-08-03 2022-08-03 Outpatient R ASIA, CHOALPHONSOPEDRO LUIS [facility] [id number] Univers 13:00:00 13:00:[address] it[address] [facility] 2022-08-03 2022-08-03 Orders Doctor NEWMAN 1.2.840.114 [id number] Univers 00:00:00 00:00:00 Only Unassigned, RAYA 350.1.13.10 [facility] 4.2.7.2.686 Shawn as [phone] [facility] 009 Branch 2022-07-14 2022-07-14 Outpatient R ASIA, CHOALPHONSOPEDRO LUIS [facility] [id number] Univers 16:30:12 23:59:[address] [facility] 2022-07-14 2022-07-14 [facility] VIKTORIA Betancourt 1.2.840.114 [id number] Univers 16:30:12 23:59:00 Encounter Maria Elena DOS SANTOS 350.1.13.10 ity of [facility] 4.2.7.2.686 Shawn as [id number] [facility] 844 [address] 2022-07-14 2022-07-14 Telephone VIKTORIA Betancourt 1.2.840.114 [id number] Univers 00:00:00 00:00:00 [place] RAYA 350.1.13.10 ity of [facility] 4.2.7.2.686 Shawn as [id number] [facility] 844 Branch 2022-07-07 2022-07-07 Orders Doctor TRENT 1.2.840.114 [id number] Univers 00:00:00 00:00:00 Only Unassigned, RAYA 350.1.13.10 ity of [place] [facility] 4.2.7.2.686 Shawn as [phone] [facility] 009 Branch 2022-06-27 2022-06-27 Transition ROSE Macias 1.2.840.114 [id number] Univers 00:00:00 00:00:00 of Care Jamil SHEPHERD [address].1.13.[address] [facility] 4[place]2.7.[place] [id number] [facility] 403 Branch 2022-06-20 2022-06-25 Inpatient X ALVERTO [facility] [id number] Univers 13:17:00 13:00:00 ACACIA ity of [facility] 2022-06-20 2022-06-25 [facility] Srinath Cohen 1.2.840.1 14 [id number] Univers 13:17:00 13:00:00 Encounter Acacia Del Toro 350.1.13. 10 ity of [facility] 4.2.7.2.686 [place] [id number] [facility] 100 Branch 2022-06-24 2022-06-24 Surgery VIKTORIA Betancourt 1.2.840.114 [id number] Univers 08:35:00 09:20:00 Cho[place] RAYA 350.1.13.10 ity of [facility] 4.2.7.2.686 Shawn as [id number] [facility] 840 Branch 2021-05-10 2021-05-10 Nurse Therapy, Kevin Byrd [facility] 1.2. 840.114 [id number] Univers 19:27:33 20:27:33 Visit Unknown, [facility] 350.1.13.10 ity of [place] 4.2.7.2.686 Shawn as Terrell?Blea [id number] [address] Medical Office Building 2021-05-10 2021-05-10 Outpatient R UNKNOWN, [facility] [id number] Univers 19:30:00 19:30:[address] [facility] 2021-05-09 2021-05-09 Telephone TRENT Tariq 1.2.902.907 [id number] Univers 00:00:00 00:00:00 Gessica P RAYA 350.1.13.10 ity of [facility] 4.2.7.2.686 Shawn as [phone] [address] 2021-05-07 2021-05-07 Laboratory Only, Ang Db Test [facility] 1.2.8 40.114 [id number] Univers 17:11:44 17:31:44 Only Pavan [facility] 350.1.13.10 ity of [place] 4.2.7.2.686 Shawn as Terrell?Blea [id number] [address] Office [facility] 2021-05-07 2021-05-07 Outpatient R PAVAN [facility] [id number] Univers 17:15:00 17:15:00 JUD [facility] 2021-05-07 2021-05-07 [facility] [id number] Univers 16:20:00 16:20:00 [facility] 2021-05-07 2021-05-07 Orders Doctor TRENT 1.2.840.114 [id number] Univers 00:00:00 00:00:00 Only Unassigned, RAYA 350.1.13.10 ity of [place] [facility] 4.2.7.2.686 Shawn as [phone] [address] Results Test Description Test Time Test Comments Results Result Comments Source POCT GLUCOSE (AUTOMATED) 2022-11-01 17:45:48 Test Item Value Reference Range Interpretation Comme nts POCT GLU (test code = 3804719982) 377 mg/dL 70-110 H Lab Interpretation (test code = 56766-8) Abnormal [facility] GLUCOSE (AUTOMATED)2022-11-01 14:03:36 Test Item Value Reference Range Interpretation Comments POCT GLU (test code = 6764726522) 218 mg/dL 70-110 H Lab Interpretation (test code = Abnormal 18358-7) [facility] GLUCOSE (AUTOMATED)2022-11-01 02:05:30 Test Item Value Reference Range Interpretation Comments POCT GLU (test code = 1574526231) 195 mg/dL 70-110 H Lab Interpretation (test code = Abnormal 19066-8) [facility] GLUCOSE (AUTOMATED)2022-10-31 22:18:04 Test Item Value Reference Range Interpretation Comments POCT GLU (test code = 5442008661) 200 mg/dL 70-110 H Lab Interpretation (test code = Abnormal 25392-2) [facility] GLUCOSE (AUTOMATED)2022-10-31 17:40:15 Test Item Value Reference Range Interpretation Comments POCT GLU (test code = 4604544852) 231 mg/dL 70-110 H Lab Interpretation (test code = Abnormal 63760-0) [facility] GLUCOSE (AUTOMATED)2022-10-31 14:36:10 Test Item Value Reference Range Interpretation Comments POCT GLU (test code = 6759214546) 199 mg/dL 70-110 H Lab Interpretation (test code = Abnormal 66261-1) [facility] GLUCOSE (AUTOMATED)2022-10-31 03:28:00 Test Item Value Reference Range Interpretation Comments POCT GLU (test code = 5906835096) 198 mg/dL 70-110 H Lab Interpretation (test code = Abnormal 48332-6) [facility] GLUCOSE (AUTOMATED)2022-10-30 17:40:57 Test Item Value Reference Range Interpretation Comments POCT GLU (test code = 6697630867) 275 mg/dL 70-110 H Lab Interpretation (test code = Abnormal 60040-6) [facility] GLUCOSE (AUTOMATED)2022-10-30 13:56:28 Test Item Value Reference Range Interpretation Comments POCT GLU (test code = 4399333537) 191 mg/dL 70-110 H Lab Interpretation (test code = Abnormal 44569-0) [facility] WITHOUT [id number] 11:10:09 Test Item Value Reference Range Interpretation Comments WBC (test code = 6690-2) 7.95 See_Comment [A utomated message] The system [employer] generated this result transmit timur reference range : 4.30 - 11.10 10*3/?L. The reference range was not used to interpret this result as normal/abnormal . RBC (test code = 789-8) 3.22 See_Comment L [Au tomated message] The system [employer] generated this result transmit timur reference range [...] 277 See_Comment [Au tomated message] The system [employer] generated this result transmit timur reference range : 166 - 358 10*3/?L. The reference range was not used to interpret this result as normal/abnormal . MPV (test code = 8.4 fL 9.5-12.9 L 63642-0) RDW-CV (test code = 13.3 % 12.0-15.5 788-0) RDW-SD (test code = 41.0 fL 39.0-49.9 40136-8) NRBC x10^3 (test code = See_Comment [Au tomated message] 2940496700) The system [employer] generated this result transmit timur reference range : 10*3/?L. The reference range was not used to interpret this result as normal/abnormal . NRBC/100 WBC (test code 0.0 See_Comment [Au tomated message] = 8633008766) The system [facility] generated this result transmit timur reference range : 0.0 - 10.0 /100 WBC s. The reference r fernando was not used to interpret this result as normal/abnormal . IPF % (test code = 7232742158) Lab Interpretation (test Abnormal code = 15372-1) [facility] GLUCOSE (AUTOMATED)2022-10-30 02:05:21 Test Item Value Reference Range Interpretation Comments POCT GLU (test code = 6492764904) 256 mg/dL 70-110 H Lab Interpretation (test code = Abnormal 77315-6) [facility] 22:52:51 Test Item Value Reference Range Interpretation Comments POCT GLU (test code = 7711243413) 193 mg/dL 70-110 H Lab Interpretation (test code = Abnormal 64627-2) [facility] GLUCOSE (AUTOMATED)2022-10-29 18:00:29 Test Item Value Reference Range Interpretation Comments POCT GLU (test code = 5382505927) 328 mg/dL 70-110 H Lab Interpretation (test code = Abnormal 45334-5) [facility]22-10[facility]29 14:03:49 Test Item Value Reference Range Interpretation Comments POCT GLU (test code = 4574684386) 214 mg/dL 70-110 H Lab Interpretation (test code = Abnormal 10799-9) [facility]22-10-29 02:04:31 Test Item Value Reference Range Interpretation Comments POCT GLU (test code = 240 mg/dL 70-110 H Notifi ed Provider 5115142058) Lab Interpretation (test Abnormal code = 98245-1) [facility]2022-10-28 23:29:03 Test Item Value Reference Range Interpretation Comments POCT GLU (test code = 9834763260) 227 mg/dL 70-110 H Lab Interpretation (test code = Abnormal 34120-6) [facility] GLUCOSE (AUTOMATED)2022-10-28 18:26:14 Test Item Value Reference Range Interpretation Comments POCT GLU (test code = 9602563846) 241 mg/dL 70-110 H Lab Interpretation (test code = Abnormal 58499-3) [facility] GLUCOSE (AUTOMATED)2022-10-28 14:37:46 Test Item Value Reference Range Interpretation Comments POCT GLU (test code = 5960700452) 190 mg/dL 70-110 H Lab Interpretation (test code = Abnormal 07396-5) [facility] METABOLIC PANEL (NA, K, CL, CO2, GLUCOSE, BUN, CREATININE, CA)2022-10-28 11:33:48 Test Item Value Reference Range Interpretation Comments NA (test code = 128 mmol/L 135-145 L 1161557049) K (test code = 4.1 mmol/L 3.5-5.0 8120727768) CL (test code = 99 mmol/L 98-108 2364646509) CO2 TOTAL (test code = 24 mmol/L 23-31 7878033064) AGAP (test code = 5 2-16 8487756284) BUN (test code = 15 mg/dL 7-23 5650945756) GLUCOSE (test code = 169 mg/dL 70-110 H 9454843418) CREATININE (test code = 0.55 mg/dL 0.50-1.04 1541781250) CALCIUM (test code = 8.1 mg/dL 8.6-10.6 L 0279322096) eGFR (test code = 105.0 mL/min/1.73m2 9392048728) WINDY (test code = WINDY) Association of [...] tests). Lab Interpretation Abnormal (test code = 95968-6) [facility] WITH [id number] 10:48:02 Test Item Value Reference Range Interpretation [...] RDW-SD (test code = 40.9 fL 39.0-49.9 64092-4) RDW-CV (test code = 13.6 % 12.0-15.5 788-0) PLT (test code = 287 See_Comment [Automated 777-3) message] The sy stem which generated this result transmitted reference range : 166 - 358 10*3/ ?L. The reference r fernando was not used to interpret this result as normal/abnormal . MPV (test code = 9.3 fL 9.5-12.9 L 66179-7) NRBC/100 WBC (test 0.0 See_Comment [Automat ed code = 4510388306) message] The system which generated this result transmitted reference range : 0.0 - 10.0 /100 WBCs. The refer ence range was not u sed to interpret th is result as normal/abnormal . NRBC x10^3 (test code See_Comment [Auto mated = 9260995166) message] The s ystem which generated this result transmitted reference range : 10*3/?L. The reference range was not used to interpret this result as normal/abnormal . GRAN MAT (NEUT) % 55.1 % (test code = 770-8) IMM GRAN % (test code 0.50 % = 5703370372) LYMPH % (test code = 31.2 % 736-9) MONO % (test code = 11.6 % 5905-5) EOS % (test code = 1.4 % 713-8) BASO % (test code = 0.2 % 706-2) GRAN MAT x10^3(ANC) 3.46 10*3/uL 1.88-7.09 (test code = 3749332229) IMM GRAN x10^3 (test 0.03 10*3/uL 0.00-0.06 code = 5641182611) LYMPH x10^3 (test code 1.96 10*3/uL 1.32-3.29 = 731-0) MONO x10^3 (test code 0.73 10*3/uL 0.33-0.92 = 742-7) EOS x10^3 (test code = 0.09 10*3/uL 0.03-0.39 711-2) BASO x10^3 (test code 0.01-0.07 = 704-7) Lab Interpretation Abnormal (test code = 60810-2) [facility] GLUCOSE (AUTOMATED)2022-10-28 02:11:22 Test Item Value Reference Range Interpretation Comments POCT GLU (test code = 2358367894) 268 mg/dL 70-110 H Lab Interpretation (test code = Abnormal 24809-3) [facility] GLUCOSE (AUTOMATED)2022-10-27 22:40:13 Test Item Value Reference Range Interpretation Comments POCT GLU (test code = 4701704334) 151 mg/dL 70-110 H Lab Interpretation (test code = Abnormal 80459-6) [facility] GLUCOSE (AUTOMATED)2022-10-27 17:35:16 Test Item Value Reference Range Interpretation Comments POCT GLU (test code = 6219487855) 239 mg/dL 70-110 H Lab Interpretation (test code = Abnormal 22619-9) [facility] GLUCOSE (AUTOMATED)2022-10-27 14:42:18 Test Item Value Reference Range Interpretation Comments POCT GLU (test code = 1964931024) 221 mg/dL 70-110 H Lab Interpretation (test code = Abnormal 59258-8) [facility] GLUCOSE (AUTOMATED)2022-10-27 03:32:29 Test Item Value Reference Range Interpretation Comments POCT GLU (test code = 258 mg/dL 70-110 H Notifi ed Provider [id number]) Lab Interpretation (test Abnormal code = 39132-8) [facility] GLUCOSE (AUTOMATED)2022-10-26 22:32:49 Test Item Value Reference Range Interpretation Comments POCT GLU (test code = 176 mg/dL 70-110 H Notifi ed Provider [id number]) Lab Interpretation (test Abnormal code = 48171-1) [facility] GLUCOSE (AUTOMATED)2022-10-26 17:34:42 Test Item Value Reference Range Interpretation Comments POCT GLU (test code = 307 mg/dL 70-110 H Notifi ed Provider [id number]) Lab Interpretation (test Abnormal code = 91515-8) [facility] GLUCOSE (AUTOMATED)2022-10-26 13:30:00 Test Item Value Reference Range Interpretation Comments POCT GLU (test code = 239 mg/dL 70-110 H Notifi ed Provider [id number]) Lab Interpretation (test Abnormal code = 20185-6) [facility] GLUCOSE (AUTOMATED)2022-10-26 03:40:06 Test Item Value Reference Range Interpretation Comments POCT GLU (test code = 225 mg/dL 70-110 H Notifi ed Provider [id number]) Lab Interpretation (test Abnormal code = 25075-7) [facility] GLUCOSE (AUTOMATED)2022-10-26 01:50:16 Test Item Value Reference Range Interpretation Comments POCT GLU (test code = 5319317822) 240 mg/dL 70-110 H Lab Interpretation (test code = Abnormal 17159-5) [facility] GLUCOSE (AUTOMATED)2022-10-25 22:16:54 Test Item Value Reference Range Interpretation Comments POCT GLU (test code = 4638610955) 188 mg/dL 70-110 H Lab Interpretation (test code = Abnormal 04302-0) [facility] GLUCOSE (AUTOMATED)2022-10-25 17:34:44 Test Item Value Reference Range Interpretation Comments POCT GLU (test code = 176 mg/dL 70-110 H Notifi ed Provider [id number]) Lab Interpretation (test Abnormal code = 50705-7) [facility] GLUCOSE (AUTOMATED)2022-10-25 14:26:21 Test Item Value Reference Range Interpretation Comments POCT GLU (test code = 1607011941) 205 mg/dL 70-110 H Lab Interpretation (test code = Abnormal 75973-3) [facility] METABOLIC PANEL (NA, K, CL, CO2, GLUCOSE, BUN, CREATININE, CA)2022-10-25 10:29:58 Test Item Value Reference Range Interpretation Comments NA (test code = 127 mmol/L 135-145 L 9881801893) K (test code = 3.8 mmol/L 3.5-5.0 0367822577) CL (test code = 90 mmol/L 98-108 L 0878245525) CO2 TOTAL (test code = 29 mmol/L 23-31 5787454994) AGAP (test code = 8 2-16 2009535454) BUN (test code = 21 mg/dL 7-23 1810033044) GLUCOSE (test code = 203 mg/dL 70-110 H 2540389220) CREATININE (test code = 0.68 mg/dL 0.50-1.04 8053399322) CALCIUM (test code = 8.8 mg/dL 8.6-10.6 8626748930) eGFR (test code = 82.2 mL/min/1.73m2 3111550155) WINDY (test code = WINDY) Association of [...] tests). Lab Interpretation Abnormal (test code = 05891-6) [facility] Test Item Value Reference Range Interpretation Comments APTT Patient (test code 63 See_Comment H [Au tomated message] = 4463-2) The system [employer] generated this result transmitted ref erence range: 26 - 36 Seconds. The reference range was not used to int erpret this result as normal/abnormal . Lab Interpretation (test Abnormal code = 87705-9) [facility] 10:25:19 Test Item Value Reference Range Interpretation Comments Fibrinogen (test code = 9006389718) 574 mg/dL 167-453 H Lab Interpretation (test code = Abnormal 75123-0) [facility] / [id number] 10:25:18 Test Item Value Reference Range Interpretation Comments PROTIME PATIENT (test 11.9 See_Comment [Auto mated message] code = 5964-2) The system [employer] generated this result transmitted ref erence range: 10.1 - 1 2.6 Seconds. The re ference range was not u sed to interpret this result as normal/abnor mal. INR (test code = 6301-6) 1.1 Nor mal INR <1.1; Warfarin Therap eutic range 2.0 to 3. 0 or 2.5 to 3.5, dep ending upon the indica tions. Lab Interpretation (test Normal code = 12045-2) [facility] with [id number] 10:19:38 Test Item Value Reference Range Interpretation Comments WBC (test code = 9.89 See_Comment [Automated 3890-2) message] The sy stem which generated this [...] RDW-SD (test code = 39.8 fL 39.0-49.9 72718-9) RDW-CV (test code = 13.3 % 12.0-15.5 788-0) PLT (test code = 333 See_Comment [Automated 777-3) message] The sy stem which generated this result transmitted reference range : 166 - 358 10*3/ ?L. The reference r fernando was not used to interpret this result as normal/abnormal . MPV (test code = 9.3 fL 9.5-12.9 L 16174-4) NRBC/100 WBC (test 0.0 See_Comment [Automat ed code = 3880708494) message] The system which generated this result transmitted reference range : 0.0 - 10.0 /100 WBCs. The refer ence range was not u sed to interpret th is result as normal/abnormal . NRBC x10^3 (test code See_Comment [Auto mated = 5017573775) message] The s ystem which generated this result transmitted reference range : 10*3/?L. The reference range was not used to interpret this result as normal/abnormal . GRAN MAT (NEUT) % 70.8 % (test code = 770-8) IMM GRAN % (test code 0.40 % = 5897908959) LYMPH % (test code = 18.2 % 736-9) MONO % (test code = 10.1 % 5905-5) EOS % (test code = 0.3 % 713-8) BASO % (test code = 0.2 % 706-2) GRAN MAT x10^3(ANC) 7.00 10*3/uL 1.88-7.09 (test code = 1696190808) IMM GRAN x10^3 (test 0.04 10*3/uL 0.00-0.06 code = 7016693524) LYMPH x10^3 (test code 1.80 10*3/uL 1.32-3.29 = 731-0) MONO x10^3 (test code 1.00 10*3/uL 0.33-0.92 H = 742-7) EOS x10^3 (test code = 0.03 10*3/uL 0.03-0.39 711-2) BASO x10^3 (test code 0.01-0.07 = 704-7) Lab Interpretation Abnormal (test code = 73163-2) [facility] 02:02:22 Test Item Value Reference Range Interpretation Comments MAGNESIUM (test code = 4331419738) 1.6 mg/dL 1.7-2.4 L Lab Interpretation (test code = Abnormal 16831-3) [facility]MINAL [id number] 00:49:15 Test Item Value Reference Range Interpretation Comments NT-proBNP (test code = 444 pg/mL <=450 2224217202) WINDY (test code = WINDY) Biotin has been reported to cause a negative bias, interpret results relative to patient's use of biotin. Lab Interpretation (test Normal code = 23865-8) [facility] CenterTR[facility] [id number] 00:41:33 Test Item Value Reference Range Interpretation Comments TROPONIN I (test code = 0.006 ng/mL <=0.034 7110360064) WINDY (test code = WINDY) Reference (Normal) [...] biotin. Lab Interpretation Normal (test code = 54817-1) [facility]OLIC PAN[facility] (22686)2022-10-25 00:41:13 Test Item Value Reference Range Interpretation Comments NA (test code = 122 mmol/L 135-145 L 7653396941) K (test code = 4.1 mmol/L 3.5-5.0 8014030940) CL (test code = 88 mmol/L 98-108 L 6224734210) CO2 TOTAL (test code = 23 mmol/L 23-31 4973682735) AGAP (test code = 11 2-16 8991022841) BUN (test code = 25 mg/dL 7-23 H 9832449734) GLUCOSE (test code = 206 mg/dL 70-110 H 7904909606) CREATININE (test code = 0.77 mg/dL 0.50-1.04 6600559650) TOTAL BILI (test code = 0.5 mg/dL 0.1-1.8 7709564104) CALCIUM (test code = 9.0 mg/dL 8.6-10.6 0864379917) T PROTEIN (test code = 6.8 g/dL 6.3-8.2 6401632342) ALBUMIN (test code = 4.0 g/dL 3.5-5.0 9690143174) ALK PHOS (test code = 87 U/L 34-122 9808151252) ALTv (test code = 16 U/L 5-35 1742-6) AST(SGOT) (test code = 20 U/L 13-40 6264849321) eGFR (test code = 71.2 mL/min/1.73m2 9382018229) WINDY (test code = WINDY) Association of [...] tests). Lab Interpretation Abnormal (test code = 71001-3) [facility] 00:40:33 Test Item Value Reference Range Interpretation Comments LIPASE (test code = 4278414751) 39 U/L 0-220 Lab Interpretation (test code = Normal 90552-0) [facility] CenterPROTHROM[facility] / [id number] 00:26:52 Test Item Value Reference Range Interpretation Comments PROTIME PATIENT (test 13.1 See_Comment [Auto mated message] code = 5964-2) The system [employer]opic generated this result transmitted ref erence range: 12.0 - 1 4.7 Seconds. The re ference range was not u sed to interpret this result as normal/abnor mal. INR (test code = 6301-6) 1.0 Nor mal INR <1.1; Warfarin Therap eutic range 2.0 to 3. 0 or 2.5 to 3.5, dep ending upon the indica tions. Lab Interpretation (test Normal code = 65279-3) [facility] WITH [id number] 00:19:53 Test Item Value Reference Range Interpretation [...] RDW-SD (test code = 39.7 fL 39.0-49.9 79895-6) RDW-CV (test code = 13.3 % 12.0-15.5 788-0) PLT (test code = 379 See_Comment H [Automated 777-3) message] The sy stem which generated this result transmitted reference range : 166 - 358 10*3/ ?L. The reference r fernando was not used to interpret this result as normal/abnormal . MPV (test code = 9.2 fL 9.5-12.9 L 66050-9) NRBC/100 WBC (test 0.0 See_Comment [Automat ed code = 7428773603) message] The system which generated this result transmitted reference range : 0.0 - 10.0 /100 WBCs. The refer ence range was not u sed to interpret th is result as normal/abnormal . NRBC x10^3 (test code See_Comment [Auto mated = 9010053479) message] The s ystem which generated this result transmitted reference range : 10*3/?L. The reference range was not used to interpret this result as normal/abnormal . GRAN MAT (NEUT) % 70.3 % (test code = 770-8) IMM GRAN % (test code 0.80 % = 8090939018) LYMPH % (test code = 18.7 % 736-9) MONO % (test code = 9.8 % 5905-5) EOS % (test code = 0.2 % 713-8) BASO % (test code = 0.2 % 706-2) GRAN MAT x10^3(ANC) 8.90 10*3/uL 1.88-7.09 H (test code = 8861492391) IMM GRAN x10^3 (test 0.10 10*3/uL 0.00-0.06 H code = 3516557363) LYMPH x10^3 (test code 2.36 10*3/uL 1.32-3.29 = 731-0) MONO x10^3 (test code 1.24 10*3/uL 0.33-0.92 H = 742-7) EOS x10^3 (test code = 0.03 10*3/uL 0.03-0.39 711-2) BASO x10^3 (test code 0.01-0.07 = 704-7) Lab Interpretation Abnormal (test code = 44546-4) [facility] GLUCOSE (AUTOMATED)2022-10-08 15:06:32 Test Item Value Reference Range Interpretation Comments POCT GLU (test code = 6895191577) 162 mg/dL 70-110 H Lab Interpretation (test code = Abnormal 16458-6) [facility] GLUCOSE (AUTOMATED)2022-10-08 15:06:32 Test Item Value Reference Range Interpretation Comments POCT GLU (test code = 0510097778) 162 mg/dL 70-110 H Lab Interpretation (test code = Abnormal 68876-9) [facility] GLUCOSE (AUTOMATED)2022-10-08 03:55:19 Test Item Value Reference Range Interpretation Comments POCT GLU (test code = 7930429488) 279 mg/dL 70-110 H Lab Interpretation (test code = Abnormal 09695-8) [facility] GLUCOSE (AUTOMATED)2022-10-08 03:55:19 Test Item Value Reference Range Interpretation Comments POCT GLU (test code = 3092384252) 279 mg/dL 70-110 H Lab Interpretation (test code = Abnormal 89177-9) [facility] GLUCOSE (AUTOMATED)2022-10-08 03:11:05 Test Item Value Reference Range Interpretation Comments POCT GLU (test code = 0163517406) 322 mg/dL 70-110 H Lab Interpretation (test code = Abnormal 94944-5) [facility] GLUCOSE (AUTOMATED)2022-10-08 03:11:05 Test Item Value Reference Range Interpretation Comments POCT GLU (test code = 1314043120) 322 mg/dL 70-110 H Lab Interpretation (test code = Abnormal 20873-7) [facility] CenterProthrombin Time / [id number] 17:14:10 Test Item Value Reference Range Interpretation [...] tions. Lab Interpretation (test Normal code = 81018-7) [facility] WITH [id number] 17:07:07 Test Item Value Reference Range Interpretation Comments WBC (test code = See_Comment [Automated 8490-2) message] The sy stem which generated this result transmitted reference range : 4.30 - 11.10 10*3/?L. The reference range was not used to interpret this result as normal/abnormal . RBC (test code = See_Comment [Automated 119-8) message] The sy stem which generated this [...] RDW-SD (test code = 47.4 fL 39.0-49.9 93710-0) RDW-CV (test code = 15.6 % 12.0-15.5 H 788-0) PLT (test code = See_Comment [Automated 777-3) message] The sy stem which generated this result transmitted reference range : 166 - 358 10*3/ ?L. The reference r fernando was not used to interpret this result as normal/abnormal . MPV (test code = 9.8 fL 9.5-12.9 63245-1) NRBC/100 WBC (test See_Comment [Automat ed code = 2972948742) message] The system which generated this result transmitted reference range : 0.0 - 10.0 /100 WBCs. The refer ence range was not u sed to interpret th is result as normal/abnormal . NRBC x10^3 (test code See_Comment [Auto mated = 4183394267) message] The s ystem which generated this result transmitted reference range : 10*3/?L. The reference range was not used to interpret this result as normal/abnormal . GRAN MAT (NEUT) % 54.5 % (test code = 770-8) IMM GRAN % (test code 0.40 % = 0588901060) LYMPH % (test code = 36.8 % 736-9) MONO % (test code = 7.0 % 5905-5) EOS % (test code = 1.1 % 713-8) BASO % (test code = 0.2 % 706-2) GRAN MAT x10^3(ANC) 2.96 10*3/uL 1.88-7.09 (test code = 9115645806) IMM GRAN x10^3 (test 0.00-0.06 code = 6459585458) LYMPH x10^3 (test code 2.00 10*3/uL 1.32-3.29 = 731-0) MONO x10^3 (test code 0.38 10*3/uL 0.33-0.92 = 742-7) EOS x10^3 (test code = 0.06 10*3/uL 0.03-0.39 711-2) BASO x10^3 (test code 0.01-0.07 = 704-7) Lab Interpretation Abnormal (test code = 32207-3) [facility] CenterMETANEPHRINES, [id number] 20:47:27 Test Item Value Reference Range Interpretation Comments METANEPH (test <0.10 0.00-0.49 code = 09562-6) NORMETNEPH (test 0.83 nmol/L 0.00-0.89 code = 13087-1) METAPF INT (test See Note INTERPRETIV E code = 43038-0) INFORMATION: Metanephrines, Plasma (Free) This nacho t [...] its perform ance characteristics determined by [facility]. I t has not been cleared or approved by the [place] Food and Drug Administration. This test was perfor med in a CLIA certified laboratory and is intended for cl inical purposes.Perfor med By: [facility] [address] [place], [place] [address] aboratory Director: Juan Espinosa MD, PhD [facility] GLUCOSE (AUTOMATED)2022-06-25 17:12:53 Test Item Value Reference Range Interpretation Comments POCT GLU (test code = 3305758765) 200 mg/dL 70-110 H Lab Interpretation (test code = Abnormal 06842-9) [facility]2022-[facility]-25 17:12:53 Test Item Value Reference Range Interpretation Comments POCT GLU (test code = 5478587790) 200 mg/dL 70-110 H Lab Interpretation (test code = Abnormal 64056-4) [facility] GLUCOSE (AUTOMATED)2022-06-25 14:20:12 Test Item Value Reference Range Interpretation Comments POCT GLU (test code = 9217647703) 171 mg/dL 70-110 H Lab Interpretation (test code = Abnormal 16422-1) [facility] GLUCOSE (AUTOMATED)2022-06-25 14:20:12 Test Item Value Reference Range Interpretation Comments POCT GLU (test code = 6862698997) 171 mg/dL 70-110 H Lab Interpretation (test code = Abnormal 73226-7) [facility]2022-06-25 01:30:55 Test Item Value Reference Range Interpretation Comments POCT GLU (test code = 9067606788) 207 mg/dL 70-110 H Lab Interpretation (test code = Abnormal 63022-4) [facility] GLUCOSE (AUTOMATED)2022-06-25 01:30:55 Test Item Value Reference Range Interpretation Comments POCT GLU (test code = 4728014517) 207 mg/dL 70-110 H Lab Interpretation (test code = Abnormal 18160-8) [facility]2022-06-24 22:26:40 Test Item Value Reference Range Interpretation Comments POCT GLU (test code = 0215120337) 195 mg/dL 70-110 H Lab Interpretation (test code = Abnormal 84261-9) [facility] GLUCOSE (AUTOMATED)2022-06-24 22:26:40 Test Item Value Reference Range Interpretation Comments POCT GLU (test code = 4926364045) 195 mg/dL 70-110 H Lab Interpretation (test code = Abnormal 13228-2) [facility] GLUCOSE (AUTOMATED)2022-06-24 18:07:03 Test Item Value Reference Range Interpretation Comments POCT GLU (test code = 5596124510) 376 mg/dL 70-110 H Lab Interpretation (test code = Abnormal 69135-6) [facility] GLUCOSE (AUTOMATED)2022-06-24 18:07:03 Test Item Value Reference Range Interpretation Comments POCT GLU (test code = 8710762335) 376 mg/dL 70-110 H Lab Interpretation (test code = Abnormal 64461-3) [facility]20[facility]14 17:45:35 Test Item Value Reference Range Interpretation Comments MAGNESIUM (test code = 1569569587) 1.9 mg/dL 1.7-2.4 Lab Interpretation (test code = Normal 33869-0) [facility]BAS[facility] (NA, K, CL, CO2, GLUCOSE, BUN, CREATININE, CA)2022-06-24 17:45:35 Test Item Value Reference Range Interpretation Comments NA (test code = 137 mmol/L 135-145 0143490570) K (test code = 3.3 mmol/L 3.5-5 L 7481570635) CL (test code = 101 mmol/L 98-108 7148406295) CO2 TOTAL (test code = 25 mmol/L 23-31 6194245921) AGAP (test code = 2-16 7704765490) BUN (test code = 17 mg/dL 7-23 9852527663) GLUCOSE (test code = 264 mg/dL 70-110 H 0655097763) CREATININE (test code = 0.94 mg/dL 0.5-1.04 6798521226) CALCIUM (test code = 9.1 mg/dL 8.6-10.6 9770573131) eGFR (test code = mL/min/1.73m2 9948104556) WINDY (test code = WINDY) Association of [...] tests). Lab Interpretation Abnormal (test code = 58324-3) [facility]14 17:45:35 Test Item Value Reference Range Interpretation Comments MAGNESIUM (test code = 6195218159) 1.9 mg/dL 1.7-2.4 Lab Interpretation (test code = Normal 82675-9) [facility] (NA, K, CL, CO2, GLUCOSE, BUN, CREATININE, CA)2022-06-24 17:45:35 Test Item Value Reference Range Interpretation Comments NA (test code = 137 mmol/L 135-145 8032344582) K (test code = 3.3 mmol/L 3.5-5 L 5909591623) CL (test code = 101 mmol/L 98-108 6656864018) CO2 TOTAL (test code = 25 mmol/L 23-31 0146123573) AGAP (test code = 2-16 4809984422) BUN (test code = 17 mg/dL 7-23 6273246583) GLUCOSE (test code = 264 mg/dL 70-110 H 4272762780) CREATININE (test code = 0.94 mg/dL 0.5-1.04 6939407497) CALCIUM (test code = 9.1 mg/dL 8.6-10.6 5607546644) eGFR (test code = mL/min/1.73m2 2559906280) WINDY (test code = WINDY) Association of [...] tests). Lab Interpretation Abnormal (test code = 25793-7) [facility] WITHOUT [id number] 17:37:52 Test Item Value Reference Range Interpretation Comments WBC (test code = 6690-2) See_Comment [A utomated message] The system [employer] generated this result transmit timur reference range : 4.30 - 11.10 10*3/?L. The reference range was not used to interpret this result as normal/abnormal . RBC (test code = 789-8) See_Comment [Au tomated message] The system [employer] generated this result transmit timur reference range [...] 777-3) See_Comment [Au tomated message] The system [employer] generated this result transmit timur reference range : 166 - 358 10*3/?L. The reference range was not used to interpret this result as normal/abnormal . MPV (test code = 9.0 fL 9.5-12.9 L 97010-3) RDW-CV (test code = 16.6 % 12-15.5 H 788-0) RDW-SD (test code = 44.0 fL 39-49.9 32000-0) NRBC x10^3 (test code = See_Comment [Au tomated message] 4100569545) The system [employer] generated this result transmit timur reference range : 10*3/?L. The reference range was not used to interpret this result as normal/abnormal . NRBC/100 WBC (test code See_Comment [Au tomated message] = 9952482232) The system [facility] generated this result transmit timur reference range : 0.0 - 10.0 /100 WBC s. The reference r fernando was not used to interpret this result as normal/abnormal . IPF % (test code = 2359935091) Lab Interpretation (test Abnormal code = 85854-3) [facility] WITHOUT [id number] 17:37:52 Test Item Value Reference Range Interpretation Comments WBC (test code = 6690-2) See_Comment [A utomated message] The system [employer] generated this result transmit timur reference range : 4.30 - 11.10 10*3/?L. The reference range was not used to interpret this result as normal/abnormal . RBC (test code = 789-8) See_Comment [Au tomated message] The system [employer] generated this result transmit timur reference range [...] 777-3) See_Comment [Au tomated message] The system [employer] generated this result transmit timur reference range : 166 - 358 10*3/?L. The reference range was not used to interpret this result as normal/abnormal . MPV (test code = 9.0 fL 9.5-12.9 L 89506-9) RDW-CV (test code = 16.6 % 12-15.5 H 788-0) RDW-SD (test code = 44.0 fL 39-49.9 89397-2) NRBC x10^3 (test code = See_Comment [Au tomated message] 8987667526) The system [employer] generated this result transmit timur reference range : 10*3/?L. The reference range was not used to interpret this result as normal/abnormal . NRBC/100 WBC (test code See_Comment [Au tomated message] = 1896130492) The system [facility] generated this result transmit timur reference range : 0.0 - 10.0 /100 WBC s. The reference r fernando was not used to interpret this result as normal/abnormal . IPF % (test code = 0326420307) Lab Interpretation (test Abnormal code = 31451-2) [facility] GLUCOSE (AUTOMATED)2022-06-24 13:05:03 Test Item Value Reference Range Interpretation Comments POCT GLU (test code = 3005232208) 175 mg/dL 70-110 H Lab Interpretation (test code = Abnormal 84770-7) [facility] GLUCOSE (AUTOMATED)2022-06-24 13:05:03 Test Item Value Reference Range Interpretation Comments POCT GLU (test code = 2404633803) 175 mg/dL 70-110 H Lab Interpretation (test code = Abnormal 94018-0) [facility]-24 03:59:23 Test Item Value Reference Range Interpretation Comments POCT GLU (test code = 2200257947) 200 mg/dL 70-110 H Lab Interpretation (test code = Abnormal 99118-5) [facility]-24 03:59:23 Test Item Value Reference Range Interpretation Comments POCT GLU (test code = 8511827461) 200 mg/dL 70-110 H Lab Interpretation (test code = Abnormal 76713-6) [facility] GLUCOSE (AUTOMATED)2022-06-23 22:39:44 Test Item Value Reference Range Interpretation Comments POCT GLU (test code = 0393553475) 210 mg/dL 70-110 H Lab Interpretation (test code = Abnormal 45229-0) [facility] 22:39:44 Test Item Value Reference Range Interpretation Comments POCT GLU (test code = 4225548307) 210 mg/dL 70-110 H Lab Interpretation (test code = Abnormal 35954-8) [facility] 17:10:04 Test Item Value Reference Range Interpretation Comments POCT GLU (test code = 2976654154) 189 mg/dL 70-110 H Lab Interpretation (test code = Abnormal 51519-5) [facility] 17:10:04 Test Item Value Reference Range Interpretation Comments POCT GLU (test code = 6835791295) 189 mg/dL 70-110 H Lab Interpretation (test code = Abnormal 65269-0) [facility] 12:33:02 Test Item Value Reference Range Interpretation Comments POCT GLU (test code = 9412863662) 193 mg/dL 70-110 H Lab Interpretation (test code = Abnormal 57890-7) [facility] GLUCOSE (AUTOMATED)2022-06-23 12:33:02 Test Item Value Reference Range Interpretation Comments POCT GLU (test code = 0952550395) 193 mg/dL 70-110 H Lab Interpretation (test code = Abnormal 35674-5) [facility] GLUCOSE (AUTOMATED)2022-06-23 02:42:00 Test Item Value Reference Range Interpretation Comments POCT GLU (test code = 8110610922) 166 mg/dL 70-110 H Lab Interpretation (test code = Abnormal 36435-6) [facility] GLUCOSE (AUTOMATED)2022-06-23 02:42:00 Test Item Value Reference Range Interpretation Comments POCT GLU (test code = 7392373061) 166 mg/dL 70-110 H Lab Interpretation (test code = Abnormal 33743-2) [facility] [id number] 23:14:43 Test Item Value Reference Range Interpretation Comments PHOSPHORUS (test code = 3.1 mg/dL 2.5-5 Slig ht hemolysis 3273276278) Lab Interpretation (test Normal code = 90684-4) [facility] [id number] 23:14:43 Test Item Value Reference Range Interpretation Comments PHOSPHORUS (test code = 3.1 mg/dL 2.5-5 Slig ht hemolysis 5104390145) Lab Interpretation (test Normal code = 29159-6) [facility] GLUCOSE (AUTOMATED)2022-06-22 22:01:14 Test Item Value Reference Range Interpretation Comments POCT GLU (test code = 9138343956) 216 mg/dL 70-110 H Lab Interpretation (test code = Abnormal 80456-1) [facility] GLUCOSE (AUTOMATED)2022-06-22 22:01:14 Test Item Value Reference Range Interpretation Comments POCT GLU (test code = 9714859472) 216 mg/dL 70-110 H Lab Interpretation (test code = Abnormal 97369-1) [facility] GLUCOSE (AUTOMATED)2022-06-22 16:56:03 Test Item Value Reference Range Interpretation Comments POCT GLU (test code = 3640103946) 170 mg/dL 70-110 H Lab Interpretation (test code = Abnormal 46819-5) [facility] GLUCOSE (AUTOMATED)2022-06-22 16:56:03 Test Item Value Reference Range Interpretation Comments POCT GLU (test code = 6342565180) 170 mg/dL 70-110 H Lab Interpretation (test code = Abnormal 92827-8) [facility] GLUCOSE (AUTOMATED)2022-06-22 13:15:17 Test Item Value Reference Range Interpretation Comments POCT GLU (test code = 2872725177) 186 mg/dL 70-110 H Lab Interpretation (test code = Abnormal 91017-7) [facility] GLUCOSE (AUTOMATED)2022-06-22 13:15:17 Test Item Value Reference Range Interpretation Comments POCT GLU (test code = 2012616536) 186 mg/dL 70-110 H Lab Interpretation (test code = Abnormal 43781-0) [facility] GLUCOSE (AUTOMATED)2022-06-22 00:55:28 Test Item Value Reference Range Interpretation Comments POCT GLU (test code = 8189068491) 201 mg/dL 70-110 H Lab Interpretation (test code = Abnormal 99888-4) [facility] GLUCOSE (AUTOMATED)2022-06-22 00:55:28 Test Item Value Reference Range Interpretation Comments POCT GLU (test code = 1504739969) 201 mg/dL 70-110 H Lab Interpretation (test code = Abnormal 89424-0) [facility] 22:48:56 Test Item Value Reference Range Interpretation Comments Height (test code = in 1586396202) Weight (test code = lbs 3282167388) Systolic BP (test code = mmHg 5208913722) Diastolic BP (test code mmHg = 6768521814) Heart Rate (test code = bpm 7673546970) LVOT stroke volume (test 79.70 cm3 code = 8242361780) EF(Teich) (test code = 56.30 % 4603795741) LVIDD (test code = 4.60 cm 3217565829) LVIDS (test code = 3.30 cm 1764616144) Left Ventricular End 43.5 mL Systolic Volume by Teichholz Method (test code = 0286735) Left Ventricular End 99.6 mL Diastolic Volume by Teichholz Method (test code = 2664463) IVS (test code = 1.19 cm 4273783472) LVPWD (test code = 1.08 cm 8964547787) LVOT diameter (test code 2.05 cm = 2560688426) LVOT area (test code = 3.30 cm2 9685836534) FS (test code = 29 % 1271301920) MV Peak E Tian (test code 84.6 cm/s = 6559629730) MV Peak A Tian (test code 110.3 cm/s = 5078663929) E/A ratio (test code = ratio 6024958002) E wave decelartion time 0.25 s (test code = 7527608910) MV E/e' septal (test 4.0 cm/s code = 8222163362) LA Volume Index (BP) 36.7 mL/m2 (test code = 2389809253) LA volume (BP) (test 65.4 mL code = 0845095856) LVOT peak tian (test code 100.1 cm/s = 8606639628) LVOT mn grad (test code mmHg = 3795005809) BSA (test code = 1.78 m2 4568442499) LA size (test code = 3.4 cm 9297851911) LAV(MOD-sp2) (test code 61.30 mL = 1966701088) LAV(MOD-sp4) (test code 58.90 mL = 5542324901) Tapse (test code = 2.48 cm 2665492261) AV LVOT peak gradient mmHg (test code = 6876354068) LVOT peak VTI (test code 24.2 cm = 5615625887) LV V1 mean (test code = 64.80 cm/s 1351368303) MV Prop V (test code = 31.70 cm/s 9014971584) Ao root diam (test code 3.40 cm = 0845786219) Aortic root (test code = 3.4 cm 0061045975) Ao root annulus (test 3.4 cm code = 5747359228) PW (test code = 1.08 cm 0.6-1.9 9141815943) EF - 2D (test code = 56.30 % 30768223) Interventricular Septum 1.19 cm Diastolic Thickness by 2D (test code = 8952523) Left Ventricular Cardiac 4.8 L/min Output (test code = 7227065) Aortic HR (test code = BPM 5153295466) Aortic valve mean 86.9 cm/s velocity (test code = 5042816388) Ao peak tian (test code = 153.7 cm/s 5332354852) Ao VTI (test code = 33.7 cm 0423561301) AV area by cont VTI 2.4 cm2 (test code = 8020367700) AV area peak tian (test 2.2 cm2 code = 8822942910) Ao max PG (test code = 9.40 mm[Hg] 4258711488) AV peak gradient (test mmHg code = 7620210184) AV valve area (test code 2.37 cm2 = 9186623396) AV mean gradient (test mmHg code = 2691227111) IVC Diam Exp(MM) (test 1.87 cm code = 2461693381) IVC Diam Ins(MM) (test 0.78 cm code = 0190421609) Radiology Study observation (narrative) (test code = 30406-2) WINDY (test code = WINDY) ?Left?Ventricle: Left [...] enhancing agent used. Patient exhibited sinus bradycardia. [facility] 22:48:56 Test Item Value Reference Range Interpretation Comments Height (test code = in 5345426797) Weight (test code = lbs 3941704588) Systolic BP (test code = mmHg 2318259149) Diastolic BP (test code mmHg = 3457229600) Heart Rate (test code = bpm 1325478952) LVOT stroke volume (test 79.70 cm3 code = 9099579316) EF(Teich) (test code = 56.30 % 7770661787) LVIDD (test code = 4.60 cm 0669815432) LVIDS (test code = 3.30 cm 6055148324) Left Ventricular End 43.5 mL Systolic Volume by Teichholz Method (test code = 8104688) Left Ventricular End 99.6 mL Diastolic Volume by Teichholz Method (test code = 8246792) IVS (test code = 1.19 cm 4598803670) LVPWD (test code = 1.08 cm 7119074996) LVOT diameter (test code 2.05 cm = 6297386390) LVOT area (test code = 3.30 cm2 7228985262) FS (test code = 29 % 7258689385) MV Peak E Tian (test code 84.6 cm/s = 3030933644) MV Peak A Tian (test code 110.3 cm/s = 9268496712) E/A ratio (test code = ratio 4161695003) E wave decelartion time 0.25 s (test code = 0053014099) MV E/e' septal (test 4.0 cm/s code = 7652549510) LA Volume Index (BP) 36.7 mL/m2 (test code = 8727932557) LA volume (BP) (test 65.4 mL code = 4969007908) LVOT peak tian (test code 100.1 cm/s = 2228089604) LVOT mn grad (test code mmHg = 1879700937) BSA (test code = 1.78 m2 6417093884) LA size (test code = 3.4 cm 2210538848) LAV(MOD-sp2) (test code 61.30 mL = 2726548008) LAV(MOD-sp4) (test code 58.90 mL = 9708570368) Tapse (test code = 2.48 cm 6238718921) AV LVOT peak gradient mmHg (test code = 5774113370) LVOT peak VTI (test code 24.2 cm = 8692815520) LV V1 mean (test code = 64.80 cm/s 8233429252) MV Prop V (test code = 31.70 cm/s 1748287589) Ao root diam (test code 3.40 cm = 3062321187) Aortic root (test code = 3.4 cm 8507225021) Ao root annulus (test 3.4 cm code = 1508135297) PW (test code = 1.08 cm 0.6-1.3 7319494158) EF - 2D (test code = 56.30 % 28193916) Interventricular Septum 1.19 cm Diastolic Thickness by 2D (test code = 0995224) Left Ventricular Cardiac 4.8 L/min Output (test code = 1816175) Aortic HR (test code = BPM 6536141839) Aortic valve mean 86.9 cm/s velocity (test code = 5657116573) Ao peak tian (test code = 153.7 cm/s 1707344961) Ao VTI (test code = 33.7 cm 8228467060) AV area by cont VTI 2.4 cm2 (test code = 9115651400) AV area peak tian (test 2.2 cm2 code = 4880147456) Ao max PG (test code = 9.40 mm[Hg] 8949364914) AV peak gradient (test mmHg code = 8666585532) AV valve area (test code 2.37 cm2 = 9460436033) AV mean gradient (test mmHg code = 9154050411) IVC Diam Exp(MM) (test 1.87 cm code = 3522748720) IVC Diam Ins(MM) (test 0.78 cm code = 3950752758) Radiology Study observation (narrative) (test code = 57364-8) WINDY (test code = WINDY) ?Left?Ventricle: Left [...] enhancing agent used. Patient exhibited sinus bradycardia. [facility] GLUCOSE (AUTOMATED)2022-06-21 21:50:29 Test Item Value Reference Range Interpretation Comments POCT GLU (test code = 3386882700) 181 mg/dL 70-110 H Lab Interpretation (test code = Abnormal 94152-0) [facility] GLUCOSE (AUTOMATED)2022-06-21 21:50:29 Test Item Value Reference Range Interpretation Comments POCT GLU (test code = 3295277235) 181 mg/dL 70-110 H Lab Interpretation (test code = Abnormal 27309-8) [facility] GLUCOSE (AUTOMATED)2022-06-21 20:55:06 Test Item Value Reference Range Interpretation Comments POCT GLU (test code = 4252603683) 159 mg/dL 70-110 H Lab Interpretation (test code = Abnormal 48282-8) [facility] GLUCOSE (AUTOMATED)2022-06-21 20:55:06 Test Item Value Reference Range Interpretation Comments POCT GLU (test code = 1830994988) 159 mg/dL 70-110 H Lab Interpretation (test code = Abnormal 12784-5) [facility]-GLUCOSE [id number] 11:32:00 Test Item Value Reference Range Interpretation Comments POC-GLUCOSE METER 235 mg/dL 70-110 H : TESTED A T [facility] 6720 (BEAKER) (test code = [facility] Jordan [facility], 1538) 98534: Pipe Fitter Soft Copper/Techni chika ID = [id number] for QUEEN LASSITER POCT-GLUCOSE [id number] 07:37:00 Test Item Value Reference Range Interpretation Comments POC-GLUCOSE METER 190 mg/dL 70-110 H : TESTED A T [facility] 6720 (BEAKER) (test code = [facility], 1538) 16517: Pipe Fitter Soft Copper/Techni chika ID = [id number] for QUEEN LASSITER CBC W/PLT COUNT & AUTO [id number] 06:10:00 Test Item Value Reference Range Interpretation [...] PERCENT (BEAKER) (test code = 2801) POCT-GLUCOSE [id number] 22:16:00 Test Item Value Reference Range Interpretation Comments POC-GLUCOSE METER 275 mg/dL 70-110 H : TESTED A T [facility] 6720 (BEAKER) (test code = [facility], 153) 84136: Pipe Fitter Soft Copper/Techni chika ID = [id number] for IDANIA RODRÍGUEZ RODNEYAKSHAT POCT-GLUCOSE [id number] 16:44:00 Test Item Value Reference Range Interpretation Comments POC-GLUCOSE METER 200 mg/dL 70-110 H : TESTED A T [facility] 6720 (BEAKER) (test code = [facility], 153) 49856: Pipe Fitter Soft Copper/Techni chika ID = [id number] for QUEEN LASSITER POCT-GLUCOSE [id number] 12:11:00 Test Item Value Reference Range Interpretation Comments POC-GLUCOSE METER 180 mg/dL 70-110 H : TESTED A T [facility] 6720 (BEAKER) (test code = DINA Ortega [facility], 1538) 41766: Pipe Fitter Soft Copper/Techni chika ID = [id number] for SHAYY ALBRIGHT POCT-GLUCOSE [id number] 08:17:00 Test Item Value Reference Range Interpretation Comments POC-GLUCOSE METER 158 mg/dL 70-110 H : TESTED A T [facility] 6720 (BEAKER) (test code = DINA Ortega [facility], 1538) 31420: Pipe Fitter Soft Copper/Techni chika ID = [id number] for SHAYY ALBRIGHT CBC W/PLT COUNT & AUTO [id number] 04:14:00 Test Item Value Reference Range Interpretation [...] PERCENT (BEAKER) (test code = 2801) POCT-GLUCOSE [id number] 16:12:00 Test Item Value Reference Range Interpretation Comments POC-GLUCOSE METER 233 mg/dL 70-110 H : TESTED A T [facility] 6720 (BEAKER) (test code = [facility], 1538) 14212: Pipe Fitter Soft Copper/Techni chika ID = [id number] for NW CATHERINE, SHAYY POCT-GLUCOSE [id number] 12:02:00 Test Item Value Reference Range Interpretation Comments POC-GLUCOSE METER 190 mg/dL 70-110 H : TESTED A T [facility] 6720 (BEAKER) (test code = [facility], 1538) 55525: Pipe Fitter Soft Copper/Techni chika ID = [id number] for NW ABYKU, SHAYY STOOL CULTURE + SHIGA [id number] 09:19:00 Test Item Value Reference Range Interpretation Comments CULTURE (BEAKER) No Salmonella, Shigella (test code = 1095) or Campylobacter isolated POCT-GLUCOSE [id number] 07:46:00 Test Item Value Reference Range Interpretation Comments POC-GLUCOSE METER 174 mg/dL 70-110 H : TESTED A T [facility] 6720 (BEAKER) (test code = [facility], 1538) 15698: Pipe Fitter Soft Copper/Techni chika ID = [id number] for NW GENESISIAKU, SHAYY CBC W/PLT COUNT & AUTO [id number] 06:53:00 Test Item Value Reference Range Interpretation [...] 0-1 PERCENT (BEAKER) (test code = 2801) [id number] 06:20:00 Test Item Value Reference Range Interpretation Comments MAGNESIUM (BEAKER) 1.7 mg/dL 1.6-2.6 Specimen slightly (test code = 627) hemolyzed Pipe Fitter Soft Copper ID - LATA WBASIC METABOLIC [id number] 06:20:00 Test Item Value Reference Range Interpretation [...] S NOT APPLICABLE FOR DIALYSIS PATIEN TS. Pipe Fitter Soft Copper ID Suman GUIDO WHEPATIC FUNCTION [id number] 06:20:00 Test Item Value Reference Range Interpretation [...] Specimen slightly (test code = 347) hemolyzed Pipe Fitter Soft Copper ID - LATA WPOCT-GLUCOSE [id number] 21:46:00 Test Item Value Reference Range Interpretation Comments POC-GLUCOSE METER 181 mg/dL 70-110 H : TESTED A T [facility] 67[address] (BEAKER) (test code = DINA VARGAS [place], 1538) 33519: Pipe Fitter Soft Copper/Techni chika ID = [id number] for JEREMY GUPTA CT, BRAIN, WITHOUT [id number] 18:11:00FINAL REPORT CT, BRAIN, WITHOUT CONTRAST INDICATION: [...] is recommended for further characterization. Signed: Annmarie Burchepvince Verified Date/Time: 03/26/2020 18:11:57 POCT-GLUCOSE [id number] 17:31:00 Test Item Value Reference Range Interpretation Comments POC-GLUCOSE METER 209 mg/dL 70-110 H : Notified RN/MD: (BEAKER) (test code = TESTED AT [facility] 6720 1538) [facility], [address]: Pipe Fitter Soft Copper/Techni chika ID = [id number] for MEERA LEMOS SHIGA TOXIN [id number] 15:19:00 Test Item Value Reference Range Interpretation Comments SHIGA TOXIN 1 (BEAKER) (test Not detected Not detected code = 2177) SHIGA TOXIN 2 (BEAKER) (test Not detected Not detected code = 2179) POCT-GLUCOSE [id number] 11:53:00 Test Item Value Reference Range Interpretation Comments POC-GLUCOSE METER 159 mg/dL 70-110 H : [facility] 67[facility] (test code = [facility], 1538) 67584: Pipe Fitter Soft Copper/Techni chika ID = [id number] for SANDRA HOLLIS STOOL PATH [id number] 11:36:00 Test Item Value Reference Range Interpretation Comments PATHOGEN EXAM CHARGED ([facility]) (test Done code = 2381) POCT-GLUCOSE [id number] 07:11:00 Test Item Value Reference Range Interpretation Comments POC-GLUCOSE METER 146 mg/dL 70-110 H : TESTED A T [facility] 6720 ([facility]) (test code = [facility], 1538) 66677: Pipe Fitter Soft Copper/Techni chika ID = [id number] for MILY GROVE [id number] 06:04:00 Test Item Value Reference Range Interpretation Comments MAGNESIUM (BEAKER) (test code = 1.9 mg/dL 1.6-2.6 627) Pipe Fitter Soft Copper ID - PIAYA LBASIC METABOLIC [id number] 06:04:00 Test Item Value Reference Range Interpretation [...] S NOT APPLICABLE FOR DIALYSIS PATIEN TS. Pipe Fitter Soft Copper ID - PIAYA LHEPATIC FUNCTION [id number] 06:04:00 Test Item Value Reference Range Interpretation [...] (test code = 15 U/L 6-55 347) Pipe Fitter Soft Copper ID - PIAYA LCBC W/PLT COUNT & AUTO [id number] 05:20:00 Test Item Value Reference Range Interpretation [...] PERCENT (BEAKER) (test code = 2801) POCT-GLUCOSE [id number] 21:12:00 Test Item Value Reference Range Interpretation Comments POC-GLUCOSE METER 154 mg/dL 70-110 H : TESTED A T [facility] 6720 (BEAKER) (test code = DINA [place], 1538) 53500: Pipe Fitter Soft Copper/Techni chika ID = [id number] for JEREMY GUPTA POCT-GLUCOSE [id number] 17:43:00 Test Item Value Reference Range Interpretation Comments POC-GLUCOSE METER 152 mg/dL 70-110 H : TESTED A T [facility] 6720 (BEAKER) (test code = DINA VARGAS [place], 1538) 96717: Pipe Fitter Soft Copper/Techni chika ID = [id number] for [place] SARS-COV2/RT-PCR ([facility])2020-03-25 13:40:00 Test Item Value Reference Range Interpretation Comments SARS-COV2/RT-PCR (test code = Negative Not Detected, Negative 6790913) SARS-COV-[address] [facility] (test code = 3568821) Negative result for this test determines that [...] of the Act.Fact Sheet for Healthcare Prov iders:https://www.Memfo[employer].com/sites/default/files/product/documents/Fact_Sheet_HC _Gtmplnecc_Tdyf_OQPZ-VvM-4.pdfFact Sheet for Healthcare Patients:https://www.[employer].com/sites/default/files/product/docume nts/Jndv_Zxnkv_Flgfdbwv_Jxtu_ERNR-LmR-3.pdfPerforming Laboratory:[facility], [place] [address]CUYB-[id number] METER 2020-03-25 11:24:00 Test Item Value Reference Range Interpretation Comments POC-GLUCOSE METER 165 mg/dL 70-110 H : TESTED A T [facility] 6720 (BEAKER) (test code = DINA Ortega [facility], 1538) 50366: Pipe Fitter Soft Copper/Techni chika ID = [id number] for SANDRA HOLLIS TSH/FREE T4 IF [id number] 10:59:00 Test Item Value Reference Range Interpretation Comments THYROID STIMULATING HORMONE 0.622 uIU/mL 0.350-4.940 (BEAKER) (test code = 772) Pipe Fitter Soft Copper ID - PIAYA LHEMOGLOBIN [id number] 10:59:00 Test Item Value Reference Range Interpretation Comments HEMOGLOBIN A1C (BEAKER) (test code = 6.9 % 4.3-6.1 H 368) TROPONIN [id number] 10:50:00 Test Item Value Reference Range Interpretation [...] failure, acidosis, acute neurological disease, and persistent tachyarrhythmia.Pipe Fitter Soft Copper ID - PIAYA LBASIC METABOLIC [id number] 10:42:00 Test Item Value Reference Range Interpretation [...] S NOT APPLICABLE FOR DIALYSIS PATIEN TS. Pipe Fitter Soft Copper ID - WAGNER EPATIC FUNCTION [id number] 10:42:00 Test Item Value Reference Range Interpretation [...] (test code = 10 U/L 6-55 347) Pipe Fitter Soft Copper ID - WAGNER [id number] 10:41:00 Test Item Value Reference Range Interpretation Comments PHOSPHORUS (BEAKER) (test code = 3.2 mg/dL 2.3-4.7 604) Pipe Fitter Soft Copper ID - WAGNER [id number] 10:41:00 Test Item Value Reference Range Interpretation Comments MAGNESIUM (BEAKER) (test code = 2.0 mg/dL 1.6-2.6 627) Pipe Fitter Soft Copper ID - WAGNER LPOCT-GLUCOSE [id number] 09:10:00 Test Item Value Reference Range Interpretation Comments POC-GLUCOSE METER 116 mg/dL 70-110 H : TESTED A T [facility] 6720 (BEAKER) (test code = DINA VARGAS [place], 1538) 09757: Pipe Fitter Soft Copper/Techni chika ID = [id number] for LANCE TRACEY RAD, CHEST, 1 VIEW, NON [id number] 07:49:00Reason for exam:->chest painShould this be performed at the bedside?->YesFINAL REPORT CLINICAL HISTORY: chest pain TECHNIQUE: 1 view of the chest. COMPAR NIEVES: None IMPRESSION: There are linear bandlike opacities in the bilateral mid and lower lungs. There are no significant effusions. The cardiomediastinal silhouette is magnified by technique. Signed: Keturah Mensah MDReport Verified Date/Time: 03/25/2020 07:49:59 Reading Location: [facility] Radiology Reading Room C. DIFFICILE GDH [id number] 06:54:00 Test Item Value Reference Range Interpretation Comments CDT TOXIN (test code Negative Negative = 9232075495) CDT GDH ANTIGEN (test Negative Negative No ind ication of code = 0458096290) Clostridi um difficile infection and n o colonization. Discontinue ent perez isolation and t herapy. Testing performed by iZ3D Rapid Cassette Assay. For GDH, published sensitivity of the assay is 98.7% compared to cytotoxicity testing. For Toxin AB, published sensitivity is 87.8% and specificity 99.4% compared to cytotoxicity testing.Verification of kit performance was done by the [facility] prior to clinical use.URINALYSIS WITH MICROSCOPIC IF [id number] 06:35:00 Test Item Value Reference Range Interpretation [...] = 463) SOURCE(BEAKER) (test code = 2795) Pipe Fitter Soft Copper ID - [auto]Pipe Fitter Soft Copper ID - techURINALYSIS [id number] 06:35:00 Test Item Value Reference Range Interpretation Comments RBC UA (BEAKER) (test code = 519) 3 /HPF WBC UA (BEAKER) (test code = 520) 11 /HPF BACTERIA (BEAKER) (test code = 517) Rare SQUAMOUS EPITHELIAL (BEAKER) (test 1 /HPF code = 516) Pipe Fitter Soft Copper ID - techPOCT-GLUCOSE [id number] 05:08:00 Test Item Value Reference Range Interpretation Comments POC-GLUCOSE METER 128 mg/dL 70-110 H : TESTED A T [facility] 6720 (BEAKER) (test code = DINA VARGAS [place], 1538) 06603: Pipe Fitter Soft Copper/Techni chika ID = [id number] for As Meena beckett"
[2023-08-13 12:40] LABS: Absolute Lymphocytes (CBC) 1.8 K/uL (0.7-4.9); Hematocrit 35.5 % (36.0-45.0); Lymphocytes % 28.8 % (15.3-44.8); MCV 85.8 fL (80-100); MPV 7.7 fL (7.6-11.3); Platelets 210 thou/uL (152-406); RBC Red Blood Cell Count 4.14 M/uL (3.86-4.86)
[2023-08-13 13:03] LABS: Troponin High Sensitivity 13.9 pg/mL (<58.9)
[2023-08-13 13:10] LABS: Potassium 2.6 mEq/L (3.5-5.1)
--- NOTE | 2023-08-13 13:10 | RAD REPORT ---
EXAM DESCRIPTION: CT - Head Brain Wo Cont - 08/13/2023 12:37 pm CLINICAL HISTORY: Alteration of awareness/confusion . Weakness COMPARISON: May 2023 TECHNIQUE: Computed axial tomography of the head was obtained. IV contrast was not requested. All CT scans are performed using dose optimization technique as appropriate and may include automated exposure control or mA/KV adjustment according to patient size. FINDINGS: An intracranial bleed is not seen The ventricles are normal in caliber No extra-axial fluid collection is noted. Right craniotomy. 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 IMPRESSION: No acute intracranial abnormality is seen If patient's symptoms persist MRI of the brain would be recommended
[2023-08-13] MEDS ORDERED: POTASSIUM 25 MEQ EFFERV TAB ONE (13:52)
--- NOTE | 2023-08-13 13:56 | RAD REPORT ---
EXAM DESCRIPTION: Son[place] Single View08/13/2023 1:11 pm CLINICAL HISTORY: Chest pain COMPARISON: May 2023 FINDINGS: The lungs appear clear of acute infiltrate. The heart is mildly enlarged. Pacemaker leads in place. Dilatation of aorta unchanged IMPRESSION: No acute abnormalities displayed
[2023-08-13 14:22] LABS: Specific Gravity 1.011 (1.005-1.030); Urine Bacteria None Seen /HPF (<20); Urine Bilirubin NEGATIVE (Negative); Urine Blood Negative (Negative); Urine Clarity Turbid (Clear); Urine Color Light-Yellow (Yellow); Urine Glucose 2+ (Negative); Urine Protein NEGATIVE (Negative); Urine RBC <5 /HPF (None Seen); Urine Urobilinogen Normal (Normal); Urine WBC Clump Rare /HPF (None Seen); Urine pH 5.5 (5.0-7.0)
--- NOTE | 2023-08-13 14:29 | ER ---
Nurse's Notes Formerly [facility] Name: Skylar Grossman Age: 88 yrs Sex: Female : 1935 Arrival Date: 08/13/2023 Time: 11:59 Bed 4 Private MD: Diagnosis: Vasovagal syncope Presentation: 08/13 12:07 Chief complaint: EMS states: "toned out for being found slumped over to the right side mb9 while on the toilet. BGL 297. Administered 1000 mls of NS in 22g to right wrist. Pt AAOx4.". Coronavirus screen: Vaccine status: Patient reports receiving the 2nd dose of the covid vaccine. Ebola Screen: No symptoms or risks identified at this time. Initial Sepsis Screen: Does the patient meet any 2 criteria? No. Patient's initial sepsis screen is negative. Does the patient have a suspected source of infection? No. Patient's initial sepsis screen is negative. Risk Assessment: Do you want to hurt yourself or someone else? Patient reports no desire to harm self or others. Onset of symptoms was August 13, 2023. 12:07 Method Of Arrival: EMS: [facility] mb9 12:07 Acuity: FARIDA 3 mb9 Triage Assessment: 12:09 General: Appears in no apparent distress. Behavior is calm, cooperative. Pain: Denies mb9 pain. EENT: No signs and/or symptoms were reported regarding the EENT system. Neuro: Cruz Agitation-Sedation Scale (RASS): 0 - Alert and Calm Level of Consciousness is awake, alert, obeys commands, Oriented to person, place, time, situation, Appropriate for age. Cardiovascular: Heart tones S1 S2 present Patient's skin is warm and dry. Respiratory: Airway is patent Respiratory effort is even, unlabored, Respiratory pattern is regular, symmetrical, Breath sounds are clear bilaterally. GI: Abdomen is round non-distended, Bowel sounds present X 4 quads. Abd is soft and non tender X 4 quads. : No signs and/or symptoms were reported regarding the genitourinary system. Derm: Skin is fragile, is thin, Skin is dry, Skin is pale, Skin temperature is cool. Musculoskeletal: Range of motion: intact in all extremities. Historical: - Allergies: 12:09 Codeine (Upset stomach); mb9 12:09 meperidine HCl; mb9 12:09 Morphine; mb9 - Home Meds: 12:09 hydralazine 100 mg Oral tablet 3 times per day [Active]; mb9 - PMHx: 12:09 Cardiac pacemaker in situ; Diabetes - IDDM; Dementia; GERD; Depression; CVA; mb9 Hypertensive disorder; Hypercholesterolemia; - PSHx: 12:09 Appendectomy; Cholecystectomy; Total abdominal hysterectomy; mb9 - Immunization history:: Adult Immunizations up to date. - Social history:: Smoking status: Patient denies any tobacco usage or history of. Screenin:02 [facility] ED Fall Risk Assessment (Adult) History of falling in the last 3 months, mb9 including since admission No falls in past 3 months (0 pts) Confusion or Disorientation No (0 pts) Intoxicated or Sedated No (0 pts) Impaired Gait No (0 pts) Mobility Assist Device Used No (0 pt) Altered Elimination No (0 pt) Score/Fall Risk Level 0 - 2 = Low Risk Oriented to surroundings, Maintained a safe environment, Educated pt \\T\\ family on fall prevention, incl call for assistance when getting out of bed. Abuse screen: Denies threats or abuse. Nutritional screening: No deficits noted. Tuberculosis screening: No symptoms or risk factors identified. Assessment: 12:10 Reassessment: see triage assessment. mb9 12:25 Reassessment: pt taken to CT via stretcher. mb9 13:36 Reassessment: Patient appears in no apparent distress at this time. No changes from mb9 previously documented assessment. Patient and/or family updated on plan of care and expected duration. Pain level reassessed. Patient is alert, oriented x 3, equal unlabored respirations, skin warm/dry/pink. Vital Signs: 12:07 BP 157 / 78; Pulse 73; Resp 16; Temp 97.9(O); Pulse Ox 100% on R/A; Weight 61.23 kg; mb9 Height 5 ft. 3 in. ; Pain 0/10; 13:36 BP 156 / 83; Pulse 72; Resp 16; Pulse Ox 98% on R/A; mb9 12:07 Body Mass Index 23.91 (61.23 kg, 160.02 cm) mb9 12:07 Pain Scale: Adult mb9 NIH Stroke Scale Scores: 12:09 NIHSS Score: 0 jh7 ED Course: 12:02 Patient arrived in ED. eb 12:04 Izabel Hill FNP is [facility]. jh7 12:04 Desmond Olsen MD is Attending Physician. jh7 12:07 Nehal Delvalle, JOSE EDUARDO is Primary Nurse. mb9 12:07 Arm band placed on. mb9 12:08 Triage completed. mb9 12:10 Maintain EMS IV. Dressing intact. Good blood return noted. Site clean \\T\\ dry. Gauge \\T\\ mb 9 site: 22g right wrist. 12:25 Basic Metabolic Panel Sent. mb9 12:25 CBC with Diff Sent. mb9 12:25 Troponin HS Sent. mb9 12:25 EKG done, by ED staff, reviewed by Izabel BATRES. mb9 12:39 CT Head Brain wo Cont In Process Unspecified. EDMS 13:02 Placed in gown. Bed in low position. Call light in reach. Side rails up X 1. Client mb9 placed on continuous cardiac and pulse oximetry monitoring. NIBP monitoring applied. property assessment monitor on. 13:03 No provider procedures requiring assistance completed. mb9 13:13 XRAY Chest (1 view) In Process Unspecified. EDMS 13:58 Straight cath inserted, using sterile technique, 16 Fr. Returned clear yellow urine. mb9 Patient tolerated well. 15:09 IV discontinued, intact, bleeding controlled, No redness/swelling at site. Pressure mb9 dressing applied. Administered Medications: 13:44 Drug: Potassium PO Effervescent Tablet 50 mEq PO once; dissolve in 4 ounces of water or mb9 juice Route: PO; 14:24 Follow up: Response: No adverse reaction mb9 Medication: 13:03 VIS not applicable for this client. mb9 Outcome: 14:29 Discharge ordered by . 7 15:09 Discharged to home via wheelchair, mb9 15:09 Condition: stable 15:09 Discharge instructions given to patient, family, Instructed on discharge instructions, follow up and referral plans. Demonstrated understanding of instructions, follow-up care, 15:10 Patient left the ED. mb9 NIH Stroke Scale - NIH Stroke Score Date: 08/13/2023 Time: 12:09 Total Score = 0 10. Dysarthria (speech clarity - read or repeat words) - 0(Normal) 11. Extinction and Inattention (visual/tactile/auditory/spatial/personal) - 0(No abnormality) 1a. Level of Consciousness (LOC) - 0(Alert) 1b. Level of Consciousness (LOC) (Month \\T\\ Age) - 0(Both) 1c. LOC Commands (Open \\T\\ Closes Eyes/Phone Manager) - 0(Both) 2. Best Gaze (Lateral Gaze Paresis) - 0(Normal) 3. Visual Field Loss - 0(No visual loss) 4. Facial Palsy - 0(Normal) 5a. Left Arm: Motor (10-second hold) - 0(No drift) 5b. Right Arm: Motor (10-second hold) - 0(No drift) 6a. Left Leg: Motor (5-second hold - always test supine) - 0(No drift) 6b. Right Leg: Motor (5-second hold - always test supine) - 0(No drift) 7. Limb Ataxia (finger/nose \\T\\ heel/eldridge - test with eyes open) - 0(Absent) 8. Sensory Loss (pinprick arms/legs/face) - 0(Normal) 9. Best Language: Aphasia (description/naming/reading) - 0(No aphasia) Initials: 7 Signatures: Dispatcher [employer] EDMS Juana Harrison Jennifer, RULING MACHINE OPERATOR RULING MACHINE OPERATOR jh7 Nehal Delvalle, RN RN mb9
--- NOTE | 2023-08-13 14:29 | EDPHYS ---
Physician Documentation [facility] Name: Skylar Grossman Age: 88 yrs Sex: Female : 1935 Arrival Date: 08/13/2023 Time: 11:59 Bed 4 Private MD: ED Physician Desmond Olsen HPI: 08/13 12:09 This 88 yrs old Female presents to ER via EMS with complaints of decreased jh7 responsiveness on toilet. 12:09 The patient presents with decreased responsiveness. Onset: The symptoms/episode jh7 began/occurred acutely. Possible causes: vasovagal. Associated signs and symptoms: Pertinent negatives: abdominal pain, blurred vision, chest pain, diarrhea, dizziness, nausea, vomiting. Current symptoms: In the emergency department the patient's symptoms have resolved, the patient is alert and fully oriented, has normal speech, has normal responsiveness, has no confusion. EMS toned out for right leg pain. They found the patient on the toilet slumped to the right. Once they moved her off the toilet she became alert and oriented x4 and denied any leg pain. The patient denies any dizziness, confusion, chest pain, weakness, or any other symptoms. Blood glucose 239. History of diabetes, pacemaker, CVA, and hypertension.. Historical: - Allergies: 12:09 Codeine (Upset stomach); mb9 12:09 meperidine HCl; mb9 12:09 Morphine; mb9 - Home Meds: 12:09 hydralazine 100 mg Oral tablet 3 times per day [Active]; mb9 - PMHx: 12:09 Cardiac pacemaker in situ; Diabetes - IDDM; Dementia; GERD; Depression; CVA; mb9 Hypertensive disorder; Hypercholesterolemia; - PSHx: 12:09 Appendectomy; Cholecystectomy; Total abdominal hysterectomy; mb9 - Immunization history:: Adult Immunizations up to date. - Social history:: Smoking status: Patient denies any tobacco usage or history of. ROS: 12:09 Constitutional: Negative for fever, chills, and weight loss, Eyes: Negative for injury, jh7 pain, redness, and discharge, Neck: Negative for injury, pain, and swelling, Cardiovascular: Negative for chest pain, palpitations, and edema, Respiratory: Negative for shortness of breath, cough, wheezing, and pleuritic chest pain, Abdomen/GI: Negative for abdominal pain, nausea, vomiting, diarrhea, and constipation, Back: Negative for injury and pain, MS/Extremity: Negative for injury and deformity, Skin: Negative for injury, rash, and discoloration, 12:09 Neuro: Positive for syncope, Negative for altered mental status, dizziness, gait disturbance, headache, tingling, visual changes, weakness, 12:09 All other systems are negative, Exam: 12:09 Constitutional: This is a well developed, well nourished patient who is awake, alert, jh7 and in no acute distress. Head/Face: Normocephalic, atraumatic. Eyes: Pupils equal round and reactive to light, extra-ocular motions intact. Lids and lashes normal. Conjunctiva and sclera are non-icteric and not injected. Cornea within normal limits. Periorbital areas with no swelling, redness, or edema. Neck: Trachea midline, no thyromegaly or masses palpated, and no cervical lymphadenopathy. Supple, full range of motion without nuchal rigidity, or vertebral point tenderness. No Meningismus. Cardiovascular: Regular rate and rhythm with a normal S1 and S2. No gallops, murmurs, or rubs. Normal PMI, no JVD. No pulse deficits. Respiratory: Lungs have equal breath sounds bilaterally, clear to auscultation and percussion. No rales, rhonchi or wheezes noted. No increased work of breathing, no retractions or nasal flaring. Abdomen/GI: Soft, non-tender, with normal bowel sounds. No distension or tympany. No guarding or rebound. No evidence of tenderness throughout. Back: No spinal tenderness. No costovertebral tenderness. Full range of motion. Skin: Warm, dry with normal turgor. Normal color with no rashes, no lesions, and no evidence of cellulitis. MS/ Extremity: Pulses equal, no cyanosis. Neurovascular intact. Full, normal range of motion. Vital Signs: 12:07 BP 157 / 78; Pulse 73; Resp 16; Temp 97.9(O); Pulse Ox 100% on R/A; Weight 61.23 kg; mb9 Height 5 ft. 3 in. ; Pain 0/10; 13:36 BP 156 / 83; Pulse 72; Resp 16; Pulse Ox 98% on R/A; mb9 12:07 Body Mass Index 23.91 (61.23 kg, 160.02 cm) 9 12:07 Pain Scale: Adult mb9 NIH Stroke Scale Scores: 12:09 NIHSS Score: 0 [facility] MDM: 12:04 Patient medically screened. [facility] 08/13 12:05 Order name: Basic Metabolic Panel; Complete Time: 13:36 [facility] 08/13 12:05 Order name: CBC with Diff; Complete Time: 12:46 [facility] 08/13 12:05 Order name: Troponin HS; Complete Time: 13:36 [facility] 08/13 12:05 Order name: Urinalysis W/Microscopic; Complete Time: 14:24 [facility] 08/13 14:25 Order name: Urine Culture EDMS 08/13 12:05 Order name: XRAY Chest (1 view); Complete Time: 14:01 [facility] 08/13 12:11 Order name: CT Head Brain wo Cont; Complete Time: 13:36 [facility] 08/13 12:05 Order name: EKG; Complete Time: 12:06 [facility] 08/13 12:05 Order name: Cardiac monitoring; Complete Time: 12:10 [facility] 08/13 12:05 Order name: EKG - Nurse/Tech; Complete Time: 12:10 [facility] 08/13 12:05 Order name: IV Saline Lock; Complete Time: 12:10 [facility] 08/13 12:05 Order name: Labs collected and sent; Complete Time: 12:10 [facility] 08/13 12:05 Order name: O2 Per Protocol; Complete Time: 12:10 [facility] 08/13 12:05 Order name: O2 Sat Monitoring; Complete Time: 12:10 [facility] 08/13 12:05 Order name: Misc. Order: finish fluids given by EMS; Complete Time: 12:10 [facility] 08/13 13:44 Order name: Straight Cath - Urine; Complete Time: 13:58 [facility] EC:14 Rate is 73 beats/min. Rhythm is regular. QRS [place] is Normal. [place] interval is normal at [facility] 218 msec. QRS interval is normal at 150 msec. QT interval is prolonged at 468 msec. No Q waves. Clinical impression: 1st degree heart block. Administered Medications: 13:44 Drug: Potassium PO Effervescent Tablet 50 mEq PO once; dissolve in 4 ounces of water or mb9 juice Route: PO; 14:24 Follow up: Response: No adverse reaction mb9 Disposition Summary: 08/13/23 14:29 Discharge Ordered Notes: Location: Home [facility] Problem: new [facility] Symptoms: have improved [facility] Condition: Stable [facility] Diagnosis - Vasovagal syncope [facility] Followup: [facility] - With: Private Physician - When: 2 - 3 days - Reason: Recheck today's complaints Discharge Instructions: - Discharge Summary Sheet [facility] - Near-Syncope [facility] - Vasovagal Syncope, Pediatric [facility] Forms: - Medication Reconciliation Form [facility] - Thank You Letter [facility] - Patient Portal Instructions [facility] - Leadership Thank You Letter [facility] NIH Stroke Scale - NIH Stroke Score Date: 08/13/2023 Time: 12:09 Total Score = 0 10. Dysarthria (speech clarity - read or repeat words) - 0(Normal) 11. Extinction and Inattention (visual/tactile/auditory/spatial/personal) - 0(No abnormality) 1a. Level of Consciousness (LOC) - 0(Alert) 1b. Level of Consciousness (LOC) (Month \T\ Age) - 0(Both) 1c. LOC Commands (Open \T\ Closes Eyes/Oxygraph Operator) - 0(Both) 2. Best Gaze (Lateral Gaze Paresis) - 0(Normal) 3. Visual Field Loss - 0(No visual loss) 4. Facial Palsy - 0(Normal) 5a. Left Arm: Motor (10-second hold) - 0(No drift) 5b. Right Arm: Motor (10-second hold) - 0(No drift) 6a. Left Leg: Motor (5-second hold - always test supine) - 0(No drift) 6b. Right Leg: Motor (5-second hold - always test supine) - 0(No drift) 7. Limb Ataxia (finger/nose \T\ heel/eldridge - test with eyes open) - 0(Absent) 8. Sensory Loss (pinprick arms/legs/face) - 0(Normal) 9. Best Language: Aphasia (description/naming/reading) - 0(No aphasia) Initials: [facility] Signatures: Dispatcher [employer] Izabel Fernandez, MARKET RESEARCHER MARKET RESEARCHER 7 Nehal Delvalle RN RN mb9 Corrections: (The following items were deleted from the chart) 14:28 14:25 Misc. Order ordered. [place] [id number]
[2023-08-13 15:16] VITALS: TEMP 97.9
[2023-08-13 15:18] VITALS: BP 156/83; O2SAT 98
--- NOTE | 2023-08-15 13:36 | EKG ---
Test Date: 2023-08-13 Test Time: 12:14:12 Wiring Inspector: MB MEASUREMENT RESULTS: Intervals: Rate: 73 WI: 218 QRSD: 150 QT: 468 QTc: 515 [place]: P: 69 WI: 218 QRS: 61 T: -23 INTERPRETIVE STATEMENTS: Sinus rhythm with 1st degree AV block with premature supraventricular complexes Right bundle branch block T wave abnormality, consider lateral ischemia Abnormal ECG Compared to ECG 05/18/2023 06:01:43 Atrial premature complex(es) now present T-wave abnormality now present Possible ischemia now present Electronically Signed On 08-15-23 13:28:40 BRIM STRETCHING MACHINE OPERATOR by Adrian Martin
== END 2023-08-13 15:10 | disposition home or self-care (01) ==
LOC: ER 11:59
DX: R55 Syncope and collapse (principal); E11.9 Type 2 diabetes mellitus without complications; I10 Essential (primary) hypertension; Z95.0 Presence of cardiac pacemaker; Z88.5 Allergy status to narcotic agent; Z88.8 Allergy status to other drugs, medicaments and biological substances
CPT/HCPCS: 36415; 51702; 70450; 71045; 80048; 81001; 84484; 85025; 87086; 87088; 93005; 99285

== ENCOUNTER 2023-09-10 17:24 | Inpatient (IN) | payer OTHER ==
[2023-09-10 18:28] LABS: Absolute Lymphocytes (CBC) 2.3 K/uL (0.7-4.9); Hematocrit 35.8 % (36.0-45.0); Lymphocytes % 34.2 % (15.3-44.8); MCV 85.5 fL (80-100); MPV 8.1 fL (7.6-11.3); Platelets 252 thou/uL (152-406); RBC Red Blood Cell Count 4.18 M/uL (3.86-4.86)
[2023-09-10 18:37] LABS: Protime INR 1.1
[2023-09-10 18:45] LABS: Albumin 3.8 g/dL (3.4-5.0); Bilirubin Total 0.2 mg/dL (0.2-1.0); Protein, Total 7.6 g/dL (6.4-8.2)
[2023-09-10 18:51] LABS: Specific Gravity 1.017 (1.005-1.030); Urine Bacteria None Seen /HPF (<20); Urine Bilirubin NEGATIVE (Negative); Urine Blood Negative (Negative); Urine Clarity Extremely Turbid (Clear); Urine Color Light-Yellow (Yellow); Urine Glucose 1+ (Negative); Urine Mucus Slight /HPF (None Seen); Urine Protein TRACE (Negative); Urine RBC <5 /HPF (None Seen); Urine Urobilinogen Normal (Normal); Urine WBC Clump Occasional /HPF (None Seen)
--- NOTE | 2023-09-10 18:56 | RAD REPORT ---
EXAM DESCRIPTION: RAD - Chest Single View - 09/10/2023 6:41 pm CLINICAL HISTORY: AMS Chest pain. COMPARISON: <Comparisons> FINDINGS: Portable technique limits examination quality. The lungs are grossly clear. The heart is normal in size. There is a tortuous and atherosclerotic aor tic arch.Dual lead pacer device. IMPRESSION: No acute intrathoracic process suspected.
[2023-09-10] MEDS ORDERED: LORazepam 2 MG/ML VIAL ONE (18:59)
[2023-09-10] MEDS ORDERED: CEFTRIAXONE 1000 MG/VIAL ONE (18:59)
--- NOTE | 2023-09-10 19:43 | RAD REPORT ---
EXAM DESCRIPTION: CT - Head Brain Wo Cont - 09/10/2023 7:37 pm CLINICAL HISTORY: CONFUSED Headache, drowsiness COMPARISON: <Comparisons> TECHNIQUE: All CT scans are performed using dose optimization technique as appropriate and may inclu de automated exposure control or mA/KV adjustment according to patient size. FINDINGS: No intracranial hemorrhage, hydrocephalus or extra-axial fluid collection.Advanced general ized brain atrophy is present with mild periventricular and deep white matter chronic microvascular i schemic changes.No areas of brain edema or evidence of midline shift. Vertebrobasilar atherosclerosis . The paranasal sinuses and mastoids are clear. The calvarium is intact. Right frontal ryne hole. IMPRESSION: No acute intracranial abnormality.
--- NOTE | 2023-09-10 20:01 | EDPHYS ---
Physician Documentation [facility] Name: Skylar Grossman Age: 88 yrs Sex: Female : 1935 Arrival Date: 09/10/2023 Time: 17:24 Bed 3 Private MD: ED Physician Walter Baker HPI: 09/10 18:00 This 88 yrs old Female presents to ER via EMS with complaints of Altered Mental Status. rn 18:00 The patient presents with confusion, disorientation. Onset: The symptoms/episode rn began/occurred at an unknown time. Possible causes: unknown. Current symptoms: In the emergency department the patient's symptoms are unchanged from the initial presentation. It is unknown whether or not the patient has had similar symptoms in the past. Family called 911 for altered mental status. Sister called 911 because patient is not acting right, not at baseline, hallucinating and seeing family member. Patient also acting really paranoid thinking that she is being poisoned and not taking her medication. No trauma noted. No chest pain or abdominal pain. No vomiting or diarrhea. No known fever.. Historical: - Allergies: 17:26 Codeine (Upset stomach); ld1 17:26 meperidine HCl; ld1 17:26 Morphine; ld1 - Home Meds: 17:27 gabapentin 300 mg oral capsule 1 cap three times a day [Active]; pantoprazole 40 mg ld1 oral granules delayed release for susp packet 1 packet daily [Active]; levetiracetam 250 mg oral tablet once [Active]; metformin 500 mg Oral tablet 1 tab 2 times per day [Active]; clopidogrel 75 mg oral tablet 1 tab daily [Active]; lisinopril 40 mg Oral tablet 1 tab daily [Active]; amitriptyline 100 mg Oral tablet 1 tab daily [Active]; pyridostigmine bromide 30 mg oral tablet 1 tab 3 times per day [Active]; nebivolol 5 mg oral tablet 1 tab daily [Active]; - PMHx: 17:26 Cardiac pacemaker in situ; CVA; Depression; Dementia; Diabetes - IDDM; GERD; ld1 Hypercholesterolemia; Hypertensive disorder; - PSHx: 17:26 Appendectomy; Cholecystectomy; Total abdominal hysterectomy; ld1 - Immunization history:: Adult Immunizations up to date. - Social history:: Smoking status: Patient denies any tobacco usage or history of. - Family history:: not pertinent. - Hospitalizations: : No recent hospitalization is reported. ROS: 18:02 Constitutional: Negative for fever, chills, and weight loss, Neck: Negative for injury, rn pain, and swelling, Cardiovascular: Negative for chest pain, palpitations, and edema, Respiratory: Negative for shortness of breath, cough, wheezing, and pleuritic chest pain, Abdomen/GI: Negative for abdominal pain, nausea, vomiting, diarrhea, and constipation, Back: Negative for injury and pain, MS/Extremity: Negative for injury and deformity, Skin: Negative for injury, rash, and discoloration, Neuro: Negative for headache, weakness, numbness, tingling, and seizure, Exam: 18:02 Constitutional: This is a well developed, well nourished patient who is awake, alert, rn and in no acute distress. Head/Face: Normocephalic, atraumatic. Eyes: Pupils equal round and reactive to light, extra-ocular motions intact. ENT: Very dry mucous membranes, cracked lips Cardiovascular: Regular rate and rhythm. No pulse deficits. Respiratory: No increased work of breathing, no retractions or nasal flaring. Abdomen/GI: Soft, non-tender Skin: Warm, dry MS/ Extremity: Pulses equal, no cyanosis. Neuro: Awake and alert, GCS 15, oriented to person, not place or time. Cranial nerves II-XII grossly intact. Motor strength 4/5 in all extremities. Sensory grossly intact. 18:04 ECG was reviewed by the Attending Physician. rn Vital Signs: 17:38 BP 186 / 94; Pulse 83; Resp 18; Temp 98(O); Pulse Ox 96% on R/A; Weight 65.77 kg; ld1 Height 5 ft. 3 in. ; Pain 0/10; 18:43 BP 208 / 101; Pulse 78; Resp 18; Pulse Ox 98% on R/A; ld1 19:28 BP 168 / 91; Pulse 79; Resp 17; Pulse Ox 97% on R/A; lg3 22:09 BP 173 / 87; Pulse 71; Resp 18 S; Pulse Ox 97% on R/A; lg3 17:38 Body Mass Index 25.69 (65.77 kg, 160.02 cm) ld1 17:38 Pain Scale: Adult ld1 MDM: 17:27 Patient medically screened. rn 19:01 Data reviewed: vital signs. Transition of care: Care assumed from Kareem Atkinson MD. ED ec2 course: Patient signed out to me by previous physician, in brief patient arrives today due to concern for altered mental status. UTI identified on urine studies, antibiotics given. Patient also had a ground-level fall, plan is to follow-up CT scan of the head and admit the patient for altered mental status, UTI.. 19:02 ED course: Kalemia noted,Patient's lab work remarkable for reassuring CBC, metabolic ec2 profile with slight renal dysfunction with a creatinine of 1.07 and a GFR 51 noted. Urine is infectious appearing as above. Lactic within normal ranges. Chest x-ray with no acute intrathoracic process. . 20:00 ED course: CT scan of the head shows no acute intracranial malady. Will admit for UTI, ec2 altered mental status. Discussed case with hospitalist, pending admission. 09/10 17:34 Order name: Blood Culture Adult (2) / 17:34 Order name: CBC with Diff; Complete Time: 18:41 [facility]/ 17:34 Order name: CMP; Complete Time: 18:54 [facility]/ 17:34 Order name: Lactate w/ 2H reflex if indic.; Complete Time: 18:54 [facility]/ 17:34 Order name: Protime (+inr); Complete Time: 18:41 [facility]/ 17:34 Order name: Ptt, Activated; Complete Time: 18:41 [facility]/ 17:34 Order name: Urinalysis w/ reflexes; Complete Time: 18:54 [facility]/ 18:55 Order name: Urine Culture [facility] 09/10 21:37 Order name: CBC with Automated Diff [facility] 09/10 21:37 Order name: CBC with Automated Diff [facility] 09/10 21:37 Order name: Comprehensive Metabolic Panel [facility] 09/10 21:37 Order name: Comprehensive Metabolic Panel [facility] 09/10 21:37 Order name: Magnesium [facility] 09/10 21:37 Order name: NT PRO-BNP [facility] 09/10 21:37 Order name: Procalcitonin [facility] 09/10 17:34 Order name: Chest Single View XRAY; Complete Time: 18:56 [facility] 17:34 Order name: CT Head Brain wo Cont; Complete Time: 19:59 rn 09/10 17:34 Order name: EKG; Complete Time: 17:34 rn 09/10 17:34 Order name: Accucheck; Complete Time: 17:52 rn 09/10 17:34 Order name: Cardiac monitoring; Complete Time: 17:52 rn 09/10 17:34 Order name: EKG - Nurse/Tech; Complete Time: 17:52 rn 09/10 17:34 Order name: IV Saline Lock - Large Bore; Complete Time: 17:52 rn 09/10 17:34 Order name: Labs collected and sent; Complete Time: 17:52 rn 09/10 17:34 Order name: O2 Per Protocol; Complete Time: 17:38 rn 09/10 17:34 Order name: O2 Sat Monitoring; Complete Time: 17:38 rn 09/10 17:34 Order name: Vital Signs; Complete Time: 17:38 rn EC:04 Rate is 82 beats/min. Rhythm is regular. QRS [place] is Normal. VT interval is normal. QRS rn interval is normal. QT interval is normal. No Q waves. T waves are Normal. No ST changes noted. Clinical impression: NSR w/ Non-specific ST/T Changes. Interpreted by me. Reviewed by me. Administered Medications: 18:07 Drug: NS 0.9% IV 1000 ml IV at 1000 ml once Route: IV; Rate: 1000 ml; Site: right ld1 forearm; 19:07 Follow up: Response: (VIS) Vaccine information sheet provided today. Questions and/or ld1 concerns addressed. VIS edition date: Apr 16, 2021.; IV Status: Completed infusion 19:07 Drug: Rocephin - Rocephin (cefTRIAXone) IVPB 1 grams IVPB once over 30 mins; (mix in 50 ld1 mL NS) Route: IVPB; Infused Over: 30 mins; Site: right antecubital; 19:07 Drug: Ativan IVP 0.5 mg IVP once Route: IVP; Site: right forearm; ld1 20:04 Follow up: Response: No adverse reaction; Anxiety decreased vc1 Disposition Summary: 09/10/23 20:00 Hospitalization Ordered Notes: Hospitalization Status: Inpatient Admission ec2 Provider: Lianna Mcgill ec2 Location: Telemetry/MedSurg (Inpatient) ec2 Condition: Stable ec2 Problem: new ec2 Symptoms: are unchanged ec2 Bed/Room Type: Standard ec2 Room Assignment: 213(09/10/23 22:34) cg Diagnosis - UTI/ Urinary tract infection, site not specified ec2 - Altered mental status, unspecified ec2 Discharge Instructions: - Discharge Summary Sheet lg3 Forms: - SBAR form lg3 - Medication Reconciliation Form ec2 - Leadership Thank You Letter ec2 Signatures: Dispatcher [employer] Kareem Cooley MD MD rn Garcia, Cindy, RN RN cg Gena Walker RN RN ld1 Walter Baker MD MD ec2 Lakisha Garcia RN vc1 Corrections: (The following items were deleted from the chart) 18:03 18:00 Family called 911 for altered mental status.. zaynab worthy 22:34 20:00 ec2 cg
--- NOTE | 2023-09-10 20:01 | ER ---
Nurse's Notes [facility] Name: Skylar Grossman Age: 88 yrs Sex: Female : 1935 Arrival Date: 09/10/2023 Time: 17:24 Bed 3 Private MD: Diagnosis: UTI/ Urinary tract infection, site not specified;Altered mental status, unspecified Presentation: 09/10 17:25 Chief complaint: EMS states: toned out to pt home for altered mental status. Pt ld1 refusing to eat or take medications "thinks sister is going to kill her." Pt seeing " ." Sister/caregiver reporting this is not her baseline, no history or dementia. Coronavirus screen: At this time, the client does not indicate any symptoms associated with coronavirus-19. Ebola Screen: No symptoms or risks identified at this time. Risk Assessment: Do you want to hurt yourself or someone else? Patient reports no desire to harm self or others. Onset of symptoms was September 10, 2023. 17:25 Method Of Arrival: EMS: [facility] ld1 17:25 Acuity: FARIDA 3 ld1 20:35 Initial Sepsis Screen: Does the patient meet any 2 criteria? No. Patient's initial vc1 sepsis screen is negative. Does the patient have a suspected source of infection? Yes: Dysuria/Frequency/Urgency/UTI. Triage Assessment: 17:27 General: Appears in no apparent distress. comfortable, Behavior is calm, cooperative, ld1 appropriate for age. Pain: Denies pain. EENT: No signs and/or symptoms were reported regarding the EENT system. Neuro: Level of Consciousness is awake, alert, obeys commands, Oriented to none. Cardiovascular: Capillary refill < 3 seconds Patient's skin is warm and dry. Respiratory: Airway is patent Respiratory effort is even, unlabored. GI: Abdomen is flat, non-distended. : No signs and/or symptoms were reported regarding the genitourinary system. Derm: No signs and/or symptoms reported regarding the dermatologic system. Musculoskeletal: No signs and/or symptoms reported regarding the musculoskeletal system. Historical: - Allergies: 17:26 Codeine (Upset stomach); ld1 17:26 meperidine HCl; ld1 17:26 Morphine; ld1 - Home Meds: 17:27 gabapentin 300 mg oral capsule 1 cap three times a day [Active]; pantoprazole 40 mg ld1 oral granules delayed release for susp packet 1 packet daily [Active]; levetiracetam 250 mg oral tablet once [Active]; metformin 500 mg Oral tablet 1 tab 2 times per day [Active]; clopidogrel 75 mg oral tablet 1 tab daily [Active]; lisinopril 40 mg Oral tablet 1 tab daily [Active]; amitriptyline 100 mg Oral tablet 1 tab daily [Active]; pyridostigmine bromide 30 mg oral tablet 1 tab 3 times per day [Active]; nebivolol 5 mg oral tablet 1 tab daily [Active]; - PMHx: 17:26 Cardiac pacemaker in situ; CVA; Depression; Dementia; Diabetes - IDDM; GERD; ld1 Hypercholesterolemia; Hypertensive disorder; - PSHx: 17:26 Appendectomy; Cholecystectomy; Total abdominal hysterectomy; ld1 - Immunization history:: Adult Immunizations up to date. - Social history:: Smoking status: Patient denies any tobacco usage or history of. - Family history:: not pertinent. - Hospitalizations: : No recent hospitalization is reported. Screenin:39 [facility] ED Fall Risk Assessment (Adult) History of falling in the last 3 months, ld1 including since admission No falls in past 3 months (0 pts). Abuse screen: Denies threats or abuse. Denies injuries from another. Nutritional screening: No deficits noted. Tuberculosis screening: No symptoms or risk factors identified. Assessment: 17:39 Reassessment: See triage assessment. ld1 18:36 Reassessment: Pt displaying signs of anxiety. Screaming in room and curling up in bed ld1 trying to climb off of stretcher. Notified ERP of behavior at this time. Neuro: Level of Consciousness is confused, Oriented to none Reports headache. 19:28 General: Appears in no apparent distress. comfortable, Behavior is restless. Pain: lg3 Denies pain. Neuro: [place] Agitation-Sedation Scale (RASS): +1 Restless Level of Consciousness is awake, confused, Oriented to person, Speech is normal. Cardiovascular: No deficits noted. Denies chest pain, shortness of breath, Capillary refill < 3 seconds Clubbing of nail beds is absent JVD is absent Patient's skin is warm and dry. Respiratory: No deficits noted. Airway is patent Respiratory effort is even, unlabored, Respiratory pattern is regular, symmetrical. GI: No deficits noted. No signs and/or symptoms were reported involving the gastrointestinal system. Abdomen is round non-distended. : No deficits noted. EENT: No deficits noted. No signs and/or symptoms were reported regarding the EENT system. Derm: No deficits noted. No signs and/or symptoms reported regarding the dermatologic system. Skin is intact, is thin, Skin is dry, Skin is normal, Skin temperature is warm. Musculoskeletal: No deficits noted. Circulation, motion, and sensation intact. Range of motion: intact in all extremities. 22:09 Reassessment: Patient appears in no apparent distress at this time. No changes from lg3 previously documented assessment. Patient and/or family updated on plan of care and expected duration. Pain level reassessed. Patient is alert, oriented x 3, equal unlabored respirations, skin warm/dry/pink. 22:39 General: attempted to call report. nurse not available . lg3 Vital Signs: 17:38 BP 186 / 94; Pulse 83; Resp 18; Temp 98(O); Pulse Ox 96% on R/A; Weight 65.77 kg; ld1 Height 5 ft. 3 in. ; Pain 0/10; 18:43 BP 208 / 101; Pulse 78; Resp 18; Pulse Ox 98% on R/A; ld1 19:28 BP 168 / 91; Pulse 79; Resp 17; Pulse Ox 97% on R/A; lg3 22:09 BP 173 / 87; Pulse 71; Resp 18 S; Pulse Ox 97% on R/A; lg3 17:38 Body Mass Index 25.69 (65.77 kg, 160.02 cm) ld1 17:38 Pain Scale: Adult ld1 ED Course: 17:25 Patient arrived in ED. ld1 17:26 Triage completed. ld1 17:27 Kareem Atkinson MD is Attending Physician. rn 17:27 Arm band placed on right wrist. ld1 17:32 Gena Walker, JOSE EDUARDO is Primary Nurse. ld1 17:39 Patient has correct armband on for positive identification. Placed in gown. Bed in low ld1 position. Call light in reach. Side rails up X2. school bus monitor on. Pulse ox on. NIBP on. Door closed. Noise minimized. Warm blanket given. 17:39 No provider procedures requiring assistance completed. ld1 17:53 Inserted saline lock: 20 gauge in right forearm, using aseptic technique. Blood ld1 collected. 18:36 Urinalysis w/ reflexes Sent. ld1 18:43 Chest Single View XRAY In Process Unspecified. EDMS 18:56 Attending Physician role handed off by Kareem Atkinson MD ec2 18:56 Walter Baker MD is Attending Physician. ec2 19:39 CT Head Brain wo Cont In Process Unspecified. EDMS 20:00 Lianna Mcgill MD is Hospitalizing Provider. ec2 22:52 Patient admitted, IV remains in place. bleeding controlled. lg3 Administered Medications: 18:07 Drug: NS 0.9% IV 1000 ml IV at 1000 ml once Route: IV; Rate: 1000 ml; Site: right ld1 forearm; 19:07 Follow up: Response: (VIS) Vaccine information sheet provided today. Questions and/or ld1 concerns addressed. VIS edition date: Apr 16, 2021.; IV Status: Completed infusion 19:07 Drug: Rocephin - Rocephin (cefTRIAXone) IVPB 1 grams IVPB once over 30 mins; (mix in 50 ld1 mL NS) Route: IVPB; Infused Over: 30 mins; Site: right antecubital; 19:07 Drug: Ativan IVP 0.5 mg IVP once Route: IVP; Site: right forearm; ld1 20:04 Follow up: Response: No adverse reaction; Anxiety decreased vc1 Medication: 17:39 VIS not applicable for this client. ld1 Outcome: 20:00 Decision to Hospitalize by Provider. ec2 22:51 Admitted to Med/surg accompanied by tech, via stretcher, room 213, Report called to lg3 Samanta 22:51 Condition: stable 22:51 Instructed on the need for admit, 23:07 Patient left the ED. lg3 Signatures: Dispatcher [employer] EDNM Kareem Atkinson MD MD rn Able, Lacie, RN RN lg3 Gena Walker RN RN ld1 Lakisha Garcia RN RN vc1 Walter Baker MD MD ec2 Corrections: (The following items were deleted from the chart) 20:36 20:06 Initial Sepsis Screen: Does the patient meet any 2 criteria? vc1 vc1
[2023-09-10] MEDS ORDERED: ONDANSETRON 4 MG/2 ML VIAL IV PRN (21:32)
[2023-09-10] MEDS ORDERED: MORPHINE 2 MG/ML SYR IV PRN (21:32)
--- NOTE | 2023-09-10 21:51 | P.HP ---
Certification for Inpatient Patient admitted to: Inpatient With expected LOS: >2 Midnights Patient will require the following post-hospital care: None Practitioner: I am a practitioner with admitting privileges, knowledge of patient current condition, hospital course, and medical plan of care. Services: Services provided to patient in accordance with Admission requirements found in Title 42 Section 412.3 of the Code of Federal Regulations Patient History Date of Service: 08/29/23 Reason for admission: UTI with altered mental status History of Present Illness: Patient is an 88yo with CVA, dementia, DM-2 who presented to the hospital with altered mental status, and weakness. Patient apparently lives with her sister; the sister tell me that patient's primary care provider is Dr. Angel. Pt was seen in the office about a month ago for a routine follow-up according to Mariam, patient's sister who she lives with currently. Patient had been living by herself up until about a month ago. That is when the sister decided to move her in with her because she had declined. They normally get patient into a wheelchair and take her to the mall. Patient is pretty with it but physically she has been falling quite a bit, so they do not let her get out of the wheelchair. She has been pretty much nonambulatory for about a year because of persistent falling. Patient had been in pretty good health up until a couple of days ago when they noticed that she was really weak. She also started getting a little confused so they brought her into the ER today. Her workup revealed pyuria. No bacteria was seen. The emergency room physician felt patient had a urinary tract infection but was unable to explain why no bacteria was seen. Will admit the patient to the hospital and give her some IV fluids. She has been given a dose of Rocephin in the emergency room. We may need to repeat her urine analysis, but currently patient does have some confusion and she is having sundowning. Will monitor her closely but we may add Seroquel to her regimen. Unfortunately, patient has been admitted for altered mental status and will further work this up. CT of the head is negative. Will continue monitoring patient closely. Allergies codeine [Codeine] Adverse Reaction (Intermediate, Verified 07/23/19 22:37) HEADACHE/NAUSEATED meperidine HCl [From Demerol] Adverse Reaction (Intermediate, Verified 07/23/19 22:37) DIZZINESS/NAUSEA Home Medications: Amitriptyline HCl 100 mg PO BEDTIME 05/03/19 Clopidogrel Bisulfate [Plavix*] 75 mg PO DAILY 05/03/19 Gabapentin 300 mg PO TID 05/03/19 Lisinopril [Zestril] 40 mg PO BID 05/03/19 Nebivolol HCl [Bystolic*] 5 mg PO DAILY 02/02/21 Aspirin 81 mg PO DAILY 01/15/23 Metformin HCl [Glucophage] 500 mg PO BIDWM 01/15/23 Pantoprazole Sodium [Protonix] 40 mg PO DAILY 01/15/23 Levetiracetam [Keppra] 500 mg PO BID 09/11/23 pyRIDostigmine bromide [Pyridostigmine [place]] 30 mg pe PO Q8HP PRN 09/11/23 - Past Medical/Surgical History Diabetic: Yes -: GERD -: Anxiety -: Hypertension -: CVA -: Depression -: IDDM -: Hyperlipidemia -: Seizure -: Cholecystectomy -: Hysterectomy -: Appendectomy - Family History Sister Medical History: Cancer Notes: uterine Mother Medical History: Hypertension Father Medical History: Hypertension - Social History Smoking Status: Former smoker Alcohol use: No CD- Drugs: No Caffeine use: Yes Review of Systems 10-point ROS is otherwise unremarkable Physical Examination - Vital Signs Temperature: 98 F Blood Pressure: 150/80 Pulse: 90 Respirations: 18 Pulse Ox (%): 95 - Physical Exam General: Alert, In no apparent distress, Confused HEENT: Atraumatic, PERRLA, Mucous membr. moist/pink, EOMI, Sclerae nonicteric Neck: Supple, 2+ carotid pulse no bruit, No LAD, Without JVD or thyroid abnormality Respiratory: Clear to auscultation bilaterally, Normal air movement Cardiovascular: Regular rate/rhythm, Normal S1 S2 Gastrointestinal: Normal bowel sounds, Soft and benign, Non-distended, No tenderness Musculoskeletal: No clubbing, No swelling, No tenderness Integumentary: No rashes Neurological: Normal speech, Normal strength at 5/5 x4 extr, Cranial nerves 3-12 intact, Normal affect Lymphatics: No axilla or inguinal lymphadenopathy - Studies Laboratory Data (last 24 hrs) 09/10/23 09/10/23 09/10/23 17:52 17:52 17:52 WBC 6.90 Hgb 12.4 Hct 35.8 L Plt Count 252 PT 12.1 INR 1.10 APTT 64.4 H Sodium 139 Potassium 3.0 L BUN 22 H Creatinine 1.07 H Glucose 221 H Total Bilirubin 0.2 AST 15 ALT 26 Alkaline Phosphatase 95 Assessment & Plan - Problems (Diagnosis) (1) CVA (cerebral vascular accident) Current Visit: Yes Status: Acute (2) Seizure Current Visit: Yes Status: Acute (3) Altered mental status Onset Date: 08/02/17 Current Visit: No Status: Acute (4) Diabetes Onset Date: 08/18/15 Current Visit: No Status: Chronic Qualifiers: Diabetes mellitus type: type 2 (5) Hypertension Onset Date: 08/18/15 Current Visit: No Status: Chronic - Plan Plan: 1. Gentle hydration 2. Panculture 3. IV antibiotic prophylactically 4. Imaging studies including CT of the brain. MRI if no abnormality 5. Monitor electrolytes 6. Check thyroid studies as well as cortisol level 7. Review medications 8. Neurochecks every 4 hours 9. GI DVT prophylaxis - Advance Directives Does patient have a Living Will: No Does patient have a Durable POA for Healthcare: No
[2023-09-10] MEDS ORDERED: NA CHLORIDE 0.9% 1,000 ML IV SCH (22:00)
[2023-09-10] MEDS ORDERED: KCL 20 MEQ/100 mL IVPB 20 MEQ/100 ML BAG IV ONE (22:00)
[2023-09-10] MEDS: ACETAMINOPHEN 500 MG TAB PO PRN (23:33)
[2023-09-11 01:46] VITALS: BMI 25.7
[2023-09-11] MEDS: HALOPERIDOL LACT 5 MG/ML INJ IV PRN ×2 (04:40→10:19)
[2023-09-11] MEDS ORDERED: PYRIDOSTIGMINE 60 MG TABLET PO PRN (06:53)
[2023-09-11 08:24] LABS: Absolute Lymphocytes (CBC) 2.4 K/uL (0.7-4.9); Hematocrit 34.7 % (36.0-45.0); Lymphocytes % 40.4 % (15.3-44.8); MCV 84.9 fL (80-100); MPV 7.7 fL (7.6-11.3); Platelets 248 thou/uL (152-406); RBC Red Blood Cell Count 4.09 M/uL (3.86-4.86)
[2023-09-11 08:45] LABS: Albumin 3.5 g/dL (3.4-5.0); Bilirubin Total 0.4 mg/dL (0.2-1.0); Potassium 3.2 mEq/L (3.5-5.1); Protein, Total 7.3 g/dL (6.4-8.2)
[2023-09-11 08:54] LABS: Magnesium 1.3 mg/dL (1.6-2.4)
[2023-09-11] MEDS ORDERED: HOME MED 1 EA UNK (Levetiracetam [Keppra] 250 MG Tablet) PO SCH (09:00)
[2023-09-11] MEDS ORDERED: HOME MED 1 EA UNK (Lisinopril [Zestril] 40 MG Tablet) PO SCH (09:00)
[2023-09-11] MEDS ORDERED: levETIRAcetam 500 MG TAB PO SCH (09:00)
[2023-09-11] MEDS: METFORMIN HCL 500 MG TAB PO SCH ×2 (09:17→17:17)
[2023-09-11] MEDS: lisinopriL 20 MG TAB PO SCH ×2 (09:18→20:25)
[2023-09-11] MEDS: NEBIVOLOL HCL 5 MG TAB PO SCH (09:18)
[2023-09-11] MEDS: PANTOPRAZOLE 40MG TABLET PO SCH (09:18)
[2023-09-11] MEDS: POTASSIUM CL SA 10 MEQ TAB PO SCH ×2 (09:18→20:25)
[2023-09-11] MEDS: ASPIRIN 81 MG CHEWABLE TABLET PO SCH (09:19)
[2023-09-11] MEDS: CLOPIDOGREL 75 MG TABLET PO SCH (09:19)
[2023-09-11] MEDS: CEFTRIAXONE 1,000 MG in NA CHLORIDE 0.9% 50 ML IVPB SCH (09:19)
[2023-09-11] MEDS ORDERED: CLONIDINE 0.2 MG/PATCH TD SCH (11:15)
--- NOTE | 2023-09-11 11:31 | P.HP ---
Certification for Inpatient Patient admitted to: Inpatient With expected LOS: >2 Midnights Practitioner: I am a practitioner with admitting privileges, knowledge of patient current condition, hospital course, and medical plan of care. 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 ACUTE ONSET AND NO SIGNS OF INFECTIONS. ER DOES UA AND I AM NOT SURE IF IT WAS A BEDPAN SAMPLE. I WILL REDO ST CATH. SHE IS STILL CONFUSED BUT LOT BETTER PER SISTER WHO HERSELF HAS SOME MEMORY LOSS. Allergies codeine [Codeine] Adverse Reaction (Intermediate, Verified 07/23/19 22:37) HEADACHE/NAUSEATED meperidine HCl [From Demerol] Adverse Reaction (Intermediate, Verified 07/23/19 22:37) DIZZINESS/NAUSEA Home Medications: Amitriptyline HCl 100 mg PO BEDTIME 05/03/19 Clopidogrel Bisulfate [Plavix*] 75 mg PO DAILY 05/03/19 Gabapentin 300 mg PO TID 05/03/19 Lisinopril [Zestril] 40 mg PO BID 05/03/19 Nebivolol HCl [Bystolic*] 5 mg PO DAILY 02/02/21 Aspirin 81 mg PO DAILY 01/15/23 Metformin HCl [Glucophage] 500 mg PO BIDWM 01/15/23 Pantoprazole Sodium [Protonix] 40 mg PO DAILY 01/15/23 Levetiracetam [Keppra] 500 mg PO BID 09/11/23 pyRIDostigmine bromide [Pyridostigmine Bejou] 30 mg pe PO Q8HP PRN 09/11/23 - Past Medical/Surgical History Diabetic: Yes -: GERD -: Anxiety -: Hypertension -: CVA -: Depression -: IDDM -: Hyperlipidemia -: Seizure -: Cholecystectomy -: Hysterectomy -: Appendectomy - Family History Sister -: Cancer Notes: uterine Mother -: Hypertension Father -: Hypertension - Social History Smoking Status: Former smoker Alcohol use: No CD- Drugs: No Caffeine use: Yes Review of Systems 10-point ROS is otherwise unremarkable General: Weakness Physical Examination - Vital Signs Temperature: 96.9 F Blood Pressure: 198/119 Pulse: 94 Respirations: 18 Pulse Ox (%): 95 - Physical Exam General: Oriented x2, Mild distress HEENT: Atraumatic, PERRLA, Mucous membr. moist/pink, EOMI, Sclerae nonicteric Neck: Supple, 2+ carotid pulse no bruit, No LAD, Without JVD or thyroid abnormality Respiratory: Clear to auscultation bilaterally, Normal air movement Cardiovascular: Regular rate/rhythm, Normal S1 S2 Gastrointestinal: Normal bowel sounds, No tenderness Musculoskeletal: No tenderness Integumentary: No rashes Neurological: Normal gait, Normal speech, Normal strength at 5/5 x4 extr, Normal tone, Normal affect Lymphatics: No axilla or inguinal lymphadenopathy - Studies Laboratory Data (last 24 hrs) 09/10/23 09/10/23 09/10/23 17:52 17:52 17:52 WBC 6.90 Hgb 12.4 Hct 35.8 L Plt Count 252 PT 12.1 INR 1.10 APTT 64.4 H Sodium 139 Potassium 3.0 L BUN 22 H Creatinine 1.07 H Glucose 221 H Total Bilirubin 0.2 AST 15 ALT 26 Alkaline Phosphatase 95 Assessment and Plan - Problems (Diagnosis) (1) Seizure Current Visit: Yes Status: Chronic Plan: 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 KEPPRA CONTINUE (2) Altered mental status Onset Date: 08/02/17 Current Visit: No Status: Acute Plan: REDO UA , STA CATH. MRI IN AM. SHE MAY HAVE THIS FROM UTI, STROKE OR SEIZURES. WE MAY HAVE TO RAISE KEPPRA. WILL DO EEG BUT MOST OFTEN THAT TEST IS NOT USEFUL. (3) Hypertension Onset Date: 08/18/15 Current Visit: No Status: Chronic Plan: UNCONTROLLED SUPINE HTN DIFFICULT TO CONTROL PATCH AND TABLETS PRN BRADFORD DONE IN PAST. - Advance Directives Does patient have a Living Will: No Does patient have a Durable POA for Healthcare: No
[2023-09-11] MEDS ORDERED: WATER FOR INJ,STERILE 10 ML IM PRN (12:00)
[2023-09-11] MEDS: THIAMINE 200 MG/2 ML INJ IVP SCH ×3 (12:16→20:26)
[2023-09-11] MEDS: ZIPRASIDONE MESYLA 20 MG/VIAL IM PRN ×2 (12:16→19:59)
[2023-09-11] MEDS: ACETAMINOPHEN 500 MG TAB PO PRN (12:17)
[2023-09-11 13:17] LABS: Urine Bacteria None Seen /HPF (<20); Urine Bilirubin NEGATIVE (Negative); Urine Blood Negative (Negative); Urine Clarity Clear (Clear); Urine Color Colorless (Yellow); Urine Glucose 2+ (Negative); Urine Mucus Slight /HPF (None Seen); Urine Protein NEGATIVE (Negative); Urine RBC <5 /HPF (None Seen); Urine Urobilinogen Normal (Normal)
[2023-09-11] MEDS: cloNIDine HCL 0.1 MG TAB PO PRN (14:47)
--- NOTE | 2023-09-11 18:01 | RAD REPORT ---
EXAM DESCRIPTION: US - Abdomen Pelvis Scan US - 09/11/2023 4:49 pm CLINICAL HISTORY: Abdominal pain COMPARISON: 2020 CT FINDINGS: Right kidney measures 10 centimeters normal echotexture. Left kidney 9 centimeters normal echotexture. Bladder appears unremarkable Evaluation of the proximal renal arteries bilaterally limited secondary to the patient being unable t o suspend respiration. The velocities of the mid and distal renal arteries bilaterally normal IMPRESSION: Limited evaluation of the proximal renal arteries bilaterally. 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 Magnetic resonance angiogram of the renal arteries could confirm this
[2023-09-11] MEDS: levETIRAcetam 500 MG TAB PO SCH (20:26)
[2023-09-11] MEDS: AMITRIPTYLINE 50 MG TAB PO SCH (20:26)
[2023-09-11] MEDS: QUETIAPINE 25 MG TAB PO SCH (20:26)
[2023-09-11] MEDS ORDERED: HOME MED 1 EA UNK (Amitriptyline Hcl [Amitriptyline Hcl] 100 MG Tablet) PO SCH (21:00)
[2023-09-12] MEDS: cloNIDine HCL 0.1 MG TAB PO PRN (00:29)
[2023-09-12] MEDS: METFORMIN HCL 500 MG TAB PO SCH ×4 (08:00→17:15)
[2023-09-12] MEDS: ASPIRIN 81 MG CHEWABLE TABLET PO SCH ×2 (09:00→09:51)
[2023-09-12] MEDS: CLOPIDOGREL 75 MG TABLET PO SCH ×2 (09:00→09:49)
[2023-09-12] MEDS: lisinopriL 20 MG TAB PO SCH ×3 (09:00→21:29)
[2023-09-12] MEDS: NEBIVOLOL HCL 5 MG TAB PO SCH ×2 (09:00→09:49)
[2023-09-12] MEDS: PANTOPRAZOLE 40MG TABLET PO SCH ×2 (09:00→09:51)
[2023-09-12] MEDS: levETIRAcetam 500 MG TAB PO SCH ×3 (09:00→21:28)
[2023-09-12] MEDS: POTASSIUM CL SA 10 MEQ TAB PO SCH ×3 (09:00→21:28)
[2023-09-12] MEDS: THIAMINE 200 MG/2 ML INJ IVP SCH ×3 (09:00→21:28)
[2023-09-12] MEDS: CEFTRIAXONE 1,000 MG in NA CHLORIDE 0.9% 50 ML IVPB SCH ×2 (09:51→10:56)
[2023-09-12] MEDS: ZIPRASIDONE MESYLA 20 MG/VIAL IM PRN (10:25)
[2023-09-12] MEDS: NITROGLYCERIN 0.4 MG/HR (10 MG) PATCH TD SCH (10:36)
[2023-09-12] MEDS ORDERED: METOPROLOL TARTRATE 5 MG/5 ML INJ IV SCH ×2 (10:37→12:18)
[2023-09-12] MEDS ORDERED: D50W 25 GM/50 ML SYRINGE IV PRN (16:44)
[2023-09-12] MEDS ORDERED: GLUCAGON 1 MG/VIAL IM PRN (16:44)
[2023-09-12] MEDS: METOPROLOL TARTRATE 5 MG/5 ML INJ IV SCH ×3 (16:45→21:31)
[2023-09-12] MEDS: INSULIN REGULAR (HUMAN) 100 UNIT/ML SQ SCH ×2 (17:16→21:00)
--- NOTE | 2023-09-12 18:16 | P.PN ---
Subjective Date of Service: 09/12/23 Chief Complaint: altered mental status Subjective: No new changes CONFUSED, DISORIENTED, NOT COOPERATING FOR MRI. NOT TAKING MEDS. Review of Systems 10-point ROS is otherwise unremarkable General: Weakness Physical Examination - Vital Signs Temperature: 97.1 F Blood Pressure: 176/99 Pulse: 74 Respirations: 18 Pulse Ox (%): 93 - Physical Exam General: Mild distress HEENT: Atraumatic, PERRLA, EOMI Neck: Supple, JVD not distended Respiratory: Clear to auscultation bilaterally, Normal air movement Cardiovascular: Regular rate/rhythm, Normal S1 S2 Gastrointestinal: Normal bowel sounds, No tenderness Musculoskeletal: No tenderness Integumentary: No rashes Neurological: Normal speech, Normal tone, Normal affect, Other (MOVING ALL LIMBS. DISORIENTED TO TIME, PLACE AND AT TIMES PERSON. 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 KEPPRA CONTINUE MRI COULD NOT BE DONE. ADVISE PT AND NH. (2) Altered mental status Onset Date: 08/02/17 Current Visit: No Status: Acute Plan: REDO UA , STA CATH. MRI IN AM. SHE MAY HAVE THIS FROM UTI, STROKE OR SEIZURES. WE MAY HAVE TO RAISE KEPPRA. WILL DO EEG BUT MOST OFTEN THAT TEST IS NOT USEFUL. (3) Hypertension Onset Date: 08/18/15 Current Visit: No Status: Chronic Plan: UNCONTROLLED SUPINE HTN DIFFICULT TO CONTROL PATCH AND TABLETS PRN BRADFORD DONE IN PAST.
[2023-09-12] MEDS: AMITRIPTYLINE 50 MG TAB PO SCH (21:28)
[2023-09-12] MEDS: QUETIAPINE 25 MG TAB PO SCH (21:29)
[2023-09-12] MEDS: HALOPERIDOL LACT 5 MG/ML INJ IV PRN (21:29)
[2023-09-13] MEDS: METOPROLOL TARTRATE 5 MG/5 ML INJ IV SCH ×4 (04:45→17:54)
[2023-09-13] MEDS: INSULIN REGULAR (HUMAN) 100 UNIT/ML SQ SCH ×4 (07:30→21:11)
[2023-09-13] MEDS: NITROGLYCERIN 0.4 MG/HR (10 MG) PATCH TD SCH (08:20)
[2023-09-13] MEDS: levETIRAcetam 500 MG TAB PO SCH ×2 (08:21→20:55)
[2023-09-13] MEDS: lisinopriL 20 MG TAB PO SCH ×2 (08:21→20:54)
[2023-09-13] MEDS: THIAMINE 200 MG/2 ML INJ IVP SCH (08:21)
[2023-09-13] MEDS: ASPIRIN 81 MG CHEWABLE TABLET PO SCH (08:21)
[2023-09-13] MEDS: CLOPIDOGREL 75 MG TABLET PO SCH (08:21)
[2023-09-13] MEDS: METFORMIN HCL 500 MG TAB PO SCH ×2 (08:21→17:00)
[2023-09-13] MEDS: POTASSIUM CL SA 10 MEQ TAB PO SCH ×2 (08:21→20:55)
[2023-09-13] MEDS: CEFTRIAXONE 1,000 MG in NA CHLORIDE 0.9% 50 ML IVPB SCH (08:22)
[2023-09-13] MEDS: PANTOPRAZOLE 40MG TABLET PO SCH (08:22)
[2023-09-13] MEDS: HALOPERIDOL LACT 5 MG/ML INJ IV PRN (08:22)
[2023-09-13] MEDS: ACETAMINOPHEN 500 MG TAB PO PRN (08:37)
[2023-09-13] MEDS ORDERED: HYDRALAZINE HCL 20 MG/ML VIAL IV SCH (17:30)
--- NOTE | 2023-09-13 17:34 | P.PN ---
Subjective Date of Service: 09/13/23 Chief Complaint: confused, not cooperative Subjective: Worsening CONFUSED, DISORIENTED, NOT COOPERATING FOR MRI. NOT TAKING MEDS. SHE STAYS CONFUSED, CONSTANTLY MOVES, NOT ABLE TO DO MRI OR EEG. SHE IS REFUSING TO TAKE ALL MEDS OR LET LAB DRAW. SHE IS NOT EATING. Review of Systems is unable to be obtained Physical Examination - Vital Signs Temperature: 97.6 F Blood Pressure: 210/105 Pulse: 69 Respirations: 17 Pulse Ox (%): 95 - Physical Exam General: Oriented x1, Mild distress, Moderate distress HEENT: Atraumatic, PERRLA, EOMI Neck: Supple, JVD not distended Respiratory: Clear to auscultation bilaterally, Normal air movement Cardiovascular: Regular rate/rhythm, Normal S1 S2 Gastrointestinal: Normal bowel sounds, No tenderness Musculoskeletal: No tenderness Integumentary: No rashes Neurological: Other (NOT ORIENTED. 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 KEPPRA CONTINUE MRI COULD NOT BE DONE. ADVISE PT AND NH. (2) Altered mental status Onset Date: 08/02/17 Current Visit: No Status: Acute Plan: SHE STAYS CONFUSED. SHE HAS MULTIINFARCT DEMENTIA MEDS ARE NOT WORKING SHE IS REFUSING TO TAKE MEDS I STARTED PATCHES AND IV MEDS FOR BP CONTROL I TALKED TO DAUGHTER I ADVISED NH WITH HOSPICE OR HOME AT HOSPICE IF SHE DOES NOT COOPERATE MULTIINFARCT DEMENTIA WILL BE THE ETIOLOGY FOR HOSPICE. (3) Hypertension Onset Date: 08/18/15 Current Visit: No Status: Chronic Plan: UNCONTROLLED SUPINE HTN DIFFICULT TO CONTROL PATCH AND TABLETS PRN BRADFORD DONE IN PAST.
[2023-09-13] MEDS ORDERED: CLONIDINE 0.3 MG/PATCH TD SCH (18:00)
[2023-09-13] MEDS: AMITRIPTYLINE 50 MG TAB PO SCH (20:54)
[2023-09-13] MEDS: QUETIAPINE 25 MG TAB PO SCH (20:55)
[2023-09-13 22:35] LABS: Absolute Lymphocytes (CBC) 2.1 K/uL (0.7-4.9); Hematocrit 35.5 % (36.0-45.0); Lymphocytes % 24.7 % (15.3-44.8); MCV 85.4 fL (80-100); MPV 7.9 fL (7.6-11.3); Platelets 272 thou/uL (152-406); RBC Red Blood Cell Count 4.15 M/uL (3.86-4.86)
[2023-09-13 22:49] LABS: Potassium 3.2 mEq/L (3.5-5.1)
[2023-09-14] MEDS: METOPROLOL TARTRATE 5 MG/5 ML INJ IV SCH ×5 (00:05→21:50)
[2023-09-14] MEDS: METFORMIN HCL 500 MG TAB PO SCH ×2 (08:00→16:19)
[2023-09-14] MEDS: lisinopriL 20 MG TAB PO SCH ×2 (09:00→21:49)
[2023-09-14] MEDS ORDERED: CLONIDINE 0.3 MG/PATCH TD SCH (09:00)
[2023-09-14] MEDS: CLOPIDOGREL 75 MG TABLET PO SCH (09:00)
[2023-09-14] MEDS: POTASSIUM CL SA 10 MEQ TAB PO SCH ×2 (09:00→21:49)
[2023-09-14] MEDS: levETIRAcetam 500 MG TAB PO SCH ×2 (09:00→21:49)
[2023-09-14] MEDS: ASPIRIN 81 MG CHEWABLE TABLET PO SCH (09:00)
[2023-09-14] MEDS: PANTOPRAZOLE 40MG TABLET PO SCH (09:00)
[2023-09-14] MEDS: RIVASTIGMINE 4.6 MG/24 HR PATCH TD SCH (09:34)
[2023-09-14] MEDS: INSULIN REGULAR (HUMAN) 100 UNIT/ML SQ SCH ×4 (09:35→21:00)
[2023-09-14] MEDS: NITROGLYCERIN 0.4 MG/HR (10 MG) PATCH TD SCH (10:41)
--- NOTE | 2023-09-14 12:55 | P.PN ---
Subjective Date of Service: 09/14/23 Chief Complaint: confused, not cooperative Subjective: Worsening NOT WAKING UP TODAY. NOT EATING PALE Review of Systems is unable to be obtained Physical Examination - Vital Signs Temperature: 96 F Blood Pressure: 179/86 Pulse: 69 Respirations: 17 Pulse Ox (%): 92 - Physical Exam General: Mild distress, Unresponsive, Obese Neck: Supple Respiratory: Clear to auscultation bilaterally Cardiovascular: Normal pulses, Normal S1 S2 Neurological: Other (SEMICOMA. MOVES INVOLUNTARY BUT NOT WAKING UP. 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 KEPPRA CONTINUE MRI COULD NOT BE DONE. ADVISE PT AND NH. (2) Altered mental status Onset Date: 08/02/17 Current Visit: No Status: Acute Plan: I TALKED TO SISTER TODAY. SON IS COMING TO TOWN. I ADIVSE HOSPICE SHE IS 88, HAS HAD MANY STROKES IN THE PAST AND NOW SLIPPING INTO COMA. WE COULD NOT DO MRI SHE WAS VERY AGITATED AND NOW IT IS NOT GOING TO HELP US ANY LONGER. MULTIINFARCT DEMENTIA WILL BE THE ETIOLOGY FOR HOSPICE. (3) Hypertension Onset Date: 08/18/15 Current Visit: No Status: Chronic Plan: UNCONTROLLED SUPINE HTN DIFFICULT TO CONTROL PATCH AND TABLETS PRN BRADFORD DONE IN PAST.
[2023-09-14] MEDS: AMITRIPTYLINE 50 MG TAB PO SCH (21:49)
[2023-09-14] MEDS: QUETIAPINE 25 MG TAB PO SCH (21:50)
[2023-09-15] MEDS: METOPROLOL TARTRATE 5 MG/5 ML INJ IV SCH ×5 (05:21→22:37)
[2023-09-15] MEDS: NITROGLYCERIN 0.4 MG/HR (10 MG) PATCH TD SCH (09:00)
[2023-09-15] MEDS: INSULIN REGULAR (HUMAN) 100 UNIT/ML SQ SCH ×4 (09:15→20:34)
[2023-09-15] MEDS: NEBIVOLOL HCL 5 MG TAB PO SCH (09:16)
[2023-09-15] MEDS: ASPIRIN 81 MG CHEWABLE TABLET PO SCH (09:16)
[2023-09-15] MEDS: RIVASTIGMINE 4.6 MG/24 HR PATCH TD SCH (09:16)
[2023-09-15] MEDS: METFORMIN HCL 500 MG TAB PO SCH ×2 (09:16→16:43)
[2023-09-15] MEDS: levETIRAcetam 500 MG TAB PO SCH ×2 (09:17→20:26)
[2023-09-15] MEDS: POTASSIUM CL SA 10 MEQ TAB PO SCH ×2 (09:17→20:25)
[2023-09-15] MEDS: lisinopriL 20 MG TAB PO SCH ×2 (09:18→20:26)
[2023-09-15] MEDS: CLOPIDOGREL 75 MG TABLET PO SCH (09:18)
[2023-09-15] MEDS: PANTOPRAZOLE 40MG TABLET PO SCH (09:18)
--- NOTE | 2023-09-15 13:56 | EKG ---
Test Date: 2023-09-10 Test Time: 18:00:44 Embossing Machine Tender: HUONG MEASUREMENT RESULTS: Intervals: Rate: 82 TX: 194 QRSD: 134 QT: 436 QTc: 509 [place]brook: P: 68 TX: 194 QRS: 75 T: 36 INTERPRETIVE STATEMENTS: Normal sinus rhythm with sinus arrhythmia Right bundle branch block Abnormal ECG Compared to ECG 08/13/2023 12:14:12 Atrial premature complex(es) no longer present First degree AV block no longer present T-wave abnormality no longer present Possible ischemia no longer present Electronically Signed On 09-15-23 13:44:44 LUBRICATOR GRANULATOR by Adrian Martin
--- NOTE | 2023-09-15 14:51 | P.DS ---
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 ACUTE ONSET AND NO SIGNS OF INFECTIONS. ER DOES UA AND I AM NOT SURE IF IT WAS A BEDPAN SAMPLE. I WILL REDO ST CATH. SHE IS STILL CONFUSED BUT LOT BETTER PER SISTER WHO HERSELF HAS SOME MEMORY LOSS. Hospital Course: SWAPNA COMES WITH CONFUSION. THERE WAS QUESTIONABLE UTI ON ST CATH UA. SHE MAY HAVE HAD A STROKE BUT SHE DID NOT COOPERATE FOR MRI OR MRA. CT NEG FOR BRAIN. SHE KEPT VERY SOMNOLENT AND AGITATED. HER BASELINE CONDTION IS POOR, WC BOUND AND WITH WORSE PHYSICIAL CONDITION TO GET HER MORE HELP I ADVISED HOSPICE. SHE LATER WOKE UP WITH NO NEW INTERVENTION. FAMILY WILL HIRE HELP IDEALLY SHE NEED NH AND SHE REFUSES Vital Signs/Physical Exam: Temp Pulse Resp BP Pulse Ox 96.9 F 75 16 164/95 H 92 09/15/23 08:00 09/15/23 08:00 09/15/23 08:00 09/15/23 08:00 09/15/23 08:00 General: Mild distress, Confused (AT TIMES), Obese HEENT: Atraumatic, PERRLA, EOMI Neck: Supple, JVD not distended Respiratory: Clear to auscultation bilaterally, Normal air movement Cardiovascular: Regular rate/rhythm, Normal S1 S2 Gastrointestinal: Normal bowel sounds, No tenderness Musculoskeletal: No tenderness Integumentary: No rashes Neurological: Normal speech, Normal tone, Normal affect Lymphatics: No axilla or inguinal lymphadenopathy Laboratory Data at Discharge: WBC 8.40 thou/uL (4.3-10.9) 09/13/23 21:50 Hgb 12.1 g/dL (12.0-15.0) 09/13/23 21:50 Hct 35.5 % (36.0-45.0) L 09/13/23 21:50 Plt Count 272 thou/uL (152-406) 09/13/23 21:50 PT 12.1 SECONDS (9.5-12.5) 09/10/23 17:52 INR 1.10 09/10/23 17:52 APTT 64.4 SECONDS (24.3-36.9) H 09/10/23 17:52 Sodium 137 mEq/L (136-145) 09/13/23 21:50 Potassium 3.2 mEq/L (3.5-5.1) L 09/13/23 21:50 BUN 14 mg/dL (7-18) 09/13/23 21:50 Creatinine 0.70 mg/dL (0.55-1.02) 09/13/23 21:50 Glucose 195 mg/dL (74-106) H 09/13/23 21:50 Magnesium 1.3 mg/dL (1.6-2.4) L 09/11/23 08:11 Total Bilirubin 0.4 mg/dL (0.2-1.0) 09/11/23 08:11 AST 15 U/L (15-37) 09/11/23 08:11 ALT 22 U/L (13-56) 09/11/23 08:11 Alkaline Phosphatase 88 U/L (45-117) 09/11/23 08:11 Home Medications: Amitriptyline HCl 100 mg PO BEDTIME 05/03/19 Clopidogrel Bisulfate [Plavix*] 75 mg PO DAILY 05/03/19 Gabapentin 300 mg PO TID 05/03/19 Lisinopril [Zestril] 40 mg PO BID 05/03/19 Nebivolol HCl [Bystolic*] 5 mg PO DAILY 02/02/21 Aspirin 81 mg PO DAILY 01/15/23 Metformin HCl [Glucophage*] 500 mg PO BIDWM 01/15/23 Pantoprazole Sodium [Protonix] 40 mg PO DAILY 01/15/23 Levetiracetam [Keppra] 500 mg PO BID 09/11/23 pyRIDostigmine bromide [Pyridostigmine Wheeler] 30 mg pe PO Q8HP PRN 09/11/23 Nebivolol HCl [Bystolic*] 10 mg PO DAILY tab 09/15/23 Followup: Unknown,U [Primary Care Provider] -
[2023-09-15] MEDS: ACETAMINOPHEN 500 MG TAB PO PRN (17:54)
[2023-09-15] MEDS: AMITRIPTYLINE 50 MG TAB PO SCH (20:29)
[2023-09-15] MEDS: QUETIAPINE 25 MG TAB PO SCH (20:32)
[2023-09-16] MEDS: METOPROLOL TARTRATE 5 MG/5 ML INJ IV SCH (04:45)
[2023-09-16] MEDS: INSULIN REGULAR (HUMAN) 100 UNIT/ML SQ SCH ×4 (07:30→21:00)
[2023-09-16] MEDS: lisinopriL 20 MG TAB PO SCH (09:00)
[2023-09-16] MEDS: POTASSIUM CL SA 10 MEQ TAB PO SCH (09:00)
[2023-09-16] MEDS: NEBIVOLOL HCL 5 MG TAB PO SCH (11:18)
[2023-09-16] MEDS: RIVASTIGMINE 4.6 MG/24 HR PATCH TD SCH (11:19)
[2023-09-16] MEDS: METFORMIN HCL 500 MG TAB PO SCH ×2 (11:19→17:06)
[2023-09-16] MEDS: levETIRAcetam 500 MG TAB PO SCH ×3 (11:19→21:17)
[2023-09-16] MEDS: NITROGLYCERIN 0.4 MG/HR (10 MG) PATCH TD SCH (11:19)
[2023-09-16] MEDS: ASPIRIN 81 MG CHEWABLE TABLET PO SCH (11:19)
[2023-09-16] MEDS: PANTOPRAZOLE 40MG TABLET PO SCH (11:19)
[2023-09-16] MEDS: CLOPIDOGREL 75 MG TABLET PO SCH (11:20)
[2023-09-16] MEDS ORDERED: AMITRIPTYLINE 50 MG TAB PO SCH (21:00)
[2023-09-16] MEDS: QUETIAPINE 25 MG TAB PO SCH ×2 (21:00→21:17)
[2023-09-16] MEDS ORDERED: WATER FOR INJ,STERILE 10 ML IM PRN (23:43)
[2023-09-16] MEDS: ZIPRASIDONE MESYLA 20 MG/VIAL IM PRN (23:58)
[2023-09-17] MEDS: ZIPRASIDONE MESYLA 20 MG/VIAL IM PRN ×2 (05:10→18:34)
[2023-09-17] MEDS: INSULIN REGULAR (HUMAN) 100 UNIT/ML SQ SCH ×4 (07:30→20:49)
[2023-09-17] MEDS: METFORMIN HCL 500 MG TAB PO SCH ×2 (08:00→16:06)
[2023-09-17] MEDS: SPIRONOLACTONE 25 MG TABLET PO SCH (08:59)
[2023-09-17] MEDS: ASPIRIN 81 MG CHEWABLE TABLET PO SCH (09:00)
[2023-09-17] MEDS: PANTOPRAZOLE 40MG TABLET PO SCH (09:00)
[2023-09-17] MEDS: levETIRAcetam 500 MG TAB PO SCH ×2 (09:00→20:49)
[2023-09-17] MEDS: NEBIVOLOL HCL 5 MG TAB PO SCH (09:00)
[2023-09-17] MEDS: CLOPIDOGREL 75 MG TABLET PO SCH (09:00)
[2023-09-17] MEDS: NITROGLYCERIN 0.4 MG/HR (10 MG) PATCH TD SCH (09:27)
[2023-09-17] MEDS: RIVASTIGMINE 4.6 MG/24 HR PATCH TD SCH (09:27)
[2023-09-17] MEDS: cloNIDine HCL 0.1 MG TAB PO PRN (15:41)
[2023-09-17] MEDS: QUETIAPINE 25 MG TAB PO SCH (20:49)
[2023-09-18 00:59] VITALS: O2SAT 94
[2023-09-18] MEDS: ZIPRASIDONE MESYLA 20 MG/VIAL IM PRN (02:07)
[2023-09-18] MEDS: INSULIN REGULAR (HUMAN) 100 UNIT/ML SQ SCH ×4 (07:30→20:26)
[2023-09-18] MEDS: NITROGLYCERIN 0.4 MG/HR (10 MG) PATCH TD SCH (09:00)
[2023-09-18] MEDS: levETIRAcetam 500 MG TAB PO SCH ×2 (09:17→20:26)
[2023-09-18] MEDS: SPIRONOLACTONE 25 MG TABLET PO SCH (09:17)
[2023-09-18] MEDS: METFORMIN HCL 500 MG TAB PO SCH ×2 (09:17→16:45)
[2023-09-18] MEDS: ASPIRIN 81 MG CHEWABLE TABLET PO SCH (09:17)
[2023-09-18] MEDS: PANTOPRAZOLE 40MG TABLET PO SCH (09:17)
[2023-09-18] MEDS: CLOPIDOGREL 75 MG TABLET PO SCH (09:17)
[2023-09-18] MEDS: NEBIVOLOL HCL 5 MG TAB PO SCH (09:17)
[2023-09-18] MEDS: RIVASTIGMINE 4.6 MG/24 HR PATCH TD SCH (09:18)
--- NOTE | 2023-09-18 17:53 | P.PN ---
Subjective Date of Service: 09/16/23 Chief Complaint: confused, not cooperative Subjective: No new changes CONFUSED MOST OF THE TIMES. NOT ORIENTED. WE ARE WAITING FOR FAMILY TO DECIDE ABOUT PLACEMENT. Review of Systems 10-point ROS is otherwise unremarkable General: Weakness Physical Examination - Vital Signs Temperature: 97.5 F Blood Pressure: 164/82 Pulse: 64 Respirations: 15 Pulse Ox (%): 94 - Physical Exam General: Mild distress, Obese HEENT: Atraumatic, PERRLA, EOMI Neck: Supple, JVD not distended Respiratory: Clear to auscultation bilaterally, Normal air movement Cardiovascular: Regular rate/rhythm, Normal S1 S2 Gastrointestinal: Normal bowel sounds, No tenderness Musculoskeletal: No tenderness Integumentary: No rashes Neurological: Normal speech, Normal tone, Normal affect, Dementia (AGITATED, RESTLESS, REFUSES MEDS, MRI ETC.) Lymphatics: No axilla or inguinal lymphadenopathy - Studies Medications List Reviewed: Yes Assessment And Plan - Current Problems (Diagnosis) (1) Seizure Current Visit: Yes Status: Chronic Plan: 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 KEPPRA CONTINUE MRI COULD NOT BE DONE. ADVISE PT AND NH. (2) Altered mental status Onset Date: 08/02/17 Current Visit: No Status: Acute Plan: I TALKED TO SISTER TODAY. SON IS COMING TO TOWN. I ADIVSE HOSPICE SHE IS 88, HAS HAD MANY STROKES IN THE PAST AND NOW SLIPPING INTO COMA. WE COULD NOT DO MRI SHE WAS VERY AGITATED AND NOW IT IS NOT GOING TO HELP US ANY LONGER. MULTIINFARCT DEMENTIA WILL BE THE ETIOLOGY FOR HOSPICE. ABOVE NEEDS HELP CAN'T LIVE ALONE. WILL NEED 24 HOUR CARE AND HOSPICE. (3) Hypertension Onset Date: 08/18/15 Current Visit: No Status: Chronic Plan: UNCONTROLLED SUPINE HTN DIFFICULT TO CONTROL PATCH AND TABLETS PRN BRADFORD DONE IN PAST.
--- NOTE | 2023-09-18 17:55 | P.PN ---
Subjective Date of Service: 09/17/23 Chief Complaint: confused, not cooperative Subjective: No new changes CONFUSED MOST OF THE TIMES. NOT ORIENTED. WE ARE WAITING FOR FAMILY TO DECIDE ABOUT PLACEMENT. I SAW HER IN EVENING SON DONALD AT BEDSIDE. THEY WANT TO HELP TAKE CARE OF HER LIVING IN JAIR'S HOME ONE WEEK AT A TIME. SISTER JAIR REFUSING AND VERY AGITATED ABOUT IT. SHE HERSELF IS MORE AND MORE CONFUSED. Review of Systems is unable to be obtained Physical Examination - Vital Signs Temperature: 97.5 F Blood Pressure: 164/82 Pulse: 64 Respirations: 15 Pulse Ox (%): 94 - Physical Exam General: Oriented x1, Mild distress, Obese HEENT: Atraumatic, PERRLA, EOMI Neck: Supple, JVD not distended Respiratory: Clear to auscultation bilaterally, Normal air movement Cardiovascular: Regular rate/rhythm, Normal S1 S2 Gastrointestinal: Normal bowel sounds, No tenderness Musculoskeletal: No tenderness Integumentary: No rashes Neurological: Normal speech, Normal tone, Normal affect Lymphatics: No axilla or inguinal lymphadenopathy - Studies Medications List Reviewed: Yes Assessment And Plan - Current Problems (Diagnosis) (1) Seizure Current Visit: Yes Status: Chronic Plan: 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 KEPPRA CONTINUE MRI COULD NOT BE DONE. ADVISE PT AND NH. (2) Altered mental status Onset Date: 08/02/17 Current Visit: No Status: Acute Plan: I TALKED TO SISTER TODAY. SON IS COMING TO TOWN. I ADIVSE HOSPICE SHE IS 88, HAS HAD MANY STROKES IN THE PAST AND NOW SLIPPING INTO COMA. WE COULD NOT DO MRI SHE WAS VERY AGITATED AND NOW IT IS NOT GOING TO HELP US ANY LONGER. MULTIINFARCT DEMENTIA WILL BE THE ETIOLOGY FOR HOSPICE. ABOVE NEEDS HELP CAN'T LIVE ALONE. WILL NEED 24 HOUR CARE AND HOSPICE. HPI (3) Hypertension Onset Date: 08/18/15 Current Visit: No Status: Chronic Plan: UNCONTROLLED SUPINE HTN DIFFICULT TO CONTROL PATCH AND TABLETS PRN BRADFORD DONE IN PAST.
[2023-09-18] MEDS: QUETIAPINE 25 MG TAB PO SCH (20:26)
[2023-09-19] MEDS: NEBIVOLOL HCL 5 MG TAB PO SCH (09:08)
[2023-09-19] MEDS: levETIRAcetam 500 MG TAB PO SCH (09:08)
[2023-09-19] MEDS: INSULIN REGULAR (HUMAN) 100 UNIT/ML SQ SCH (09:09)
[2023-09-19] MEDS: SPIRONOLACTONE 25 MG TABLET PO SCH (09:09)
[2023-09-19] MEDS: CLOPIDOGREL 75 MG TABLET PO SCH (09:09)
[2023-09-19] MEDS: ASPIRIN 81 MG CHEWABLE TABLET PO SCH (09:09)
[2023-09-19] MEDS: PANTOPRAZOLE 40MG TABLET PO SCH (09:09)
[2023-09-19] MEDS: METFORMIN HCL 500 MG TAB PO SCH (09:10)
[2023-09-19] MEDS: RIVASTIGMINE 4.6 MG/24 HR PATCH TD SCH (09:10)
[2023-09-19] MEDS: NITROGLYCERIN 0.4 MG/HR (10 MG) PATCH TD SCH (09:12)
[2023-09-19 09:34] VITALS: BP 181/89; TEMP 97.8
--- NOTE | 2023-09-19 10:48 | P.DS ---
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 ACUTE ONSET AND NO SIGNS OF INFECTIONS. ER DOES UA AND I AM NOT SURE IF IT WAS A BEDPAN SAMPLE. I WILL REDO ST CATH. SHE IS STILL CONFUSED BUT LOT BETTER PER SISTER WHO HERSELF HAS SOME MEMORY LOSS. Hospital Course: SWAPNA COMES WITH CONFUSION. THERE WAS QUESTIONABLE UTI ON ST CATH UA. SHE MAY HAVE HAD A STROKE BUT SHE DID NOT COOPERATE FOR MRI OR MRA. CT NEG FOR BRAIN. SHE KEPT VERY SOMNOLENT AND AGITATED. HER BASELINE CONDTION IS POOR, WC BOUND AND WITH WORSE PHYSICIAL CONDITION TO GET HER MORE HELP I ADVISED HOSPICE. SHE LATER WOKE UP WITH NO NEW INTERVENTION. FAMILY WILL HIRE HELP IDEALLY SHE NEED NH AND SHE REFUSES AFTER MANY DAYS OF TRYING TO FIGURE OUT PLACEMENT, SISTER JAIR NOW HAS AGREED TO LET THE SONS TAKE CARE OF SWAPNA IN HER HOME. SHE WILL GO HOME ON HOSPICE I SUSPECT SHE WILL CONTINUE TO DECLINE WITH LATE EFFECTS OF STROKE AND DEMENTIA. Vital Signs/Physical Exam: Temp Pulse Resp BP Pulse Ox 97.8 F 66 16 181/89 H 96 09/19/23 08:00 09/19/23 08:00 09/19/23 08:00 09/19/23 08:00 09/19/23 08:00 Laboratory Data at Discharge: WBC 8.40 thou/uL (4.3-10.9) 09/13/23 21:50 Hgb 12.1 g/dL (12.0-15.0) 09/13/23 21:50 Hct 35.5 % (36.0-45.0) L 09/13/23 21:50 Plt Count 272 thou/uL (152-406) 09/13/23 21:50 PT 12.1 SECONDS (9.5-12.5) 09/10/23 17:52 INR 1.10 09/10/23 17:52 APTT 64.4 SECONDS (24.3-36.9) H 09/10/23 17:52 Sodium 137 mEq/L (136-145) 09/13/23 21:50 Potassium 3.2 mEq/L (3.5-5.1) L 09/13/23 21:50 BUN 14 mg/dL (7-18) 09/13/23 21:50 Creatinine 0.70 mg/dL (0.55-1.02) 09/13/23 21:50 Glucose 195 mg/dL (74-106) H 09/13/23 21:50 Magnesium 1.3 mg/dL (1.6-2.4) L 09/11/23 08:11 Total Bilirubin 0.4 mg/dL (0.2-1.0) 09/11/23 08:11 AST 15 U/L (15-37) 09/11/23 08:11 ALT 22 U/L (13-56) 09/11/23 08:11 Alkaline Phosphatase 88 U/L (45-117) 09/11/23 08:11 Home Medications: Clopidogrel Bisulfate [Plavix*] 75 mg PO DAILY 05/03/19 Gabapentin 300 mg PO TID 05/03/19 Nebivolol HCl [Bystolic*] 5 mg PO DAILY 02/02/21 Aspirin 81 mg PO DAILY 01/15/23 Metformin HCl [Glucophage*] 500 mg PO BIDWM 01/15/23 Pantoprazole Sodium [Protonix] 40 mg PO DAILY 01/15/23 Levetiracetam [Keppra] 500 mg PO BID 09/11/23 pyRIDostigmine bromide [Pyridostigmine [place]] 30 mg pe PO Q8HP PRN 09/11/23 Nebivolol HCl [Bystolic*] 10 mg PO DAILY tab 09/15/23 Quetiapine [Seroquel*] 25 mg PO BEDTIME #90 tab 09/16/23 Rivastigmine Patch [Exelon 4.6 mg Patch*] 4.6 mg TD DAILY #30 pat 09/16/23 Spironolactone [Aldactone*] 25 mg PO DAILY #90 tab 09/16/23 New Medications: Spironolactone [Aldactone*] 25 mg PO DAILY #90 tab Rivastigmine Patch [Exelon 4.6 mg Patch*] 4.6 mg TD DAILY #30 pat Quetiapine [Seroquel*] 25 mg PO BEDTIME #90 tab Followup: Edwardo Angel MD [ACTIVE - CAN ADMIT] - Unknown,U [Primary Care Provider] -
== END 2023-09-19 12:03 | disposition hospice, home (50) | DRG 101 ==
LOC: ER 17:24 → ERHOLD 21:32 → 2ND 22:36
PROVIDERS: ADMIT Internal Medicine; ATTEND Internal Medicine
DX: G40.A09 Absence epileptic syndrome, not intractable, without status epilepticus (principal); F01.511 Vascular dementia, unspecified severity, with agitation; F05 Delirium due to known physiological condition; F01.54 Vascular dementia, unspecified severity, with anxiety; N39.0 Urinary tract infection, site not specified; E11.9 Type 2 diabetes mellitus without complications; I10 Essential (primary) hypertension; E78.5 Hyperlipidemia, unspecified; B95.1 Streptococcus, group B, as the cause of diseases classified elsewhere; Z79.4 Long term (current) use of insulin; F03.90 Unspecified dementia, unspecified severity, without behavioral disturbance, psychotic disturbance, mood disturbance, and anxiety; K21.9 Gastro-esophageal reflux disease without esophagitis; Z99.3 Dependence on wheelchair; R63.0 Anorexia; Z68.25 Body mass index [BMI] 25.0-25.9, adult; Z95.0 Presence of cardiac pacemaker; Z51.5 Encounter for palliative care; Z86.73 Personal history of transient ischemic attack (TIA), and cerebral infarction without residual deficits
CPT/HCPCS: 36415; 70450; 71045; 80048; 80053; 81001; 82947; 83605; 83735; 83880; 84145; 85025; 85610; 85730; 87040; 87077; 87086; 87088; 87186; 93005; 93975; 97161; 97530; 99285; J0696; J1630; J1815; J2270; J3411; J3480; J3486; J7030